=== PATIENT | male | born 1945 | race Caucasian/White ===

== ENCOUNTER 2017-07-05 22:48 | Inpatient (IN) | payer MEDICARE, OTHER, SELFPAY ==
[2016-05-30 15:09] VITALS: BMI 37.2
[2017-07-05 22:51] VITALS: BP 176/97; PULSE 82; RESP 22; TEMP 36.5; O2SAT 97; BMI 39.1
--- NOTE | 2017-07-05 22:53 | NURSING ---
RN CALLED FOR EKG, PULLED OLD EKG'S FOR
--- NOTE | 2017-07-05 22:55 | RAD_ITS ---
STUDY: X-RAY CHEST REASON FOR EXAM: Male, 71 years old. Chest pain, palpitations. TECHNIQUE: Single AP portable view of the chest. COMPARISON: 11/15/2016. FINDINGS: Left-sided pacemaker. The lungs are clear and expanded. There is no demonstrated pleural abnormality. There is mild cardiac enlargement. Normal mediastinum and eleuterio. Normal visualized pulmonary arteries. Normal visualized aortic arch and descending thoracic aorta. Normal visualized thoracic spine. Normal visualized ribs, clavicles, and shoulders. There is no demonstrated abnormality of the visualized soft tissue structures of the upper abdomen. RAD/Chest 1 View (Portable) IMPRESSION: No acute infiltrate. Mild cardiomegaly. Electronically Signed: Chencho Lei DO at 23:40 EDT , Service support ,
--- NOTE | 2017-07-05 22:55 | EKG12_ITS ---
Test Reason : CP Blood Pressure : / mmHG Vent. Rate : 073 BPM Atrial Rate : 073 BPM P-R Int : 188 ms QRS Dur : 164 ms QT Int : 430 ms P-R-T Axes : 066 -09 -04 degrees QTc Int : 473 ms Normal sinus rhythm Right bundle branch block Inferior infarct , age undetermined Abnormal ECG Confirmed by CA SIMMONS, ROBERT ([id number]), makeup editor IRIS TUTTLE ([id number]) on 07/09/2017 2:02:38 PM Referred By: DR CASIANO Confirmed By:ROBERT PENALOZA MD
[2017-07-05 23:09] LABS: Absolute Lymphocyte Count 1.58 X10^3/ul (0.83-4.51); Absolute Neutrophil Count 3.2 X10^3/uL (2.0-7.7); Basophil# 0.04 X10^3/uL; Basophil% 0.7 % (0-1); Eosinophil# 0.22 X10^3/uL; Eosinophils% 4.1 % (0-5); Hematocrit 36.4 % (40-54); Hemoglobin 12.2 g/dl (13.0-16.5); Lymphocyte # 1.58 X10^3/ul (4.0); Lymphocyte % 29.3 % (19-41); Mean Corp Hgb Conc 33.5 g/gl (32-36); Mean Corpuscular Hgb 29.4 pg (27.0-32.0); Mean Corpuscular Volume 87.7 fL (80-94); Mean Platelet Vol. 9.1 fl (6.2-12.0); Monocyte# 0.38 X10^3/uL; Monocyte% 7.1 % (0-10); Neutrophil # 3.15 X10^3/uL (2.7-7.7); Neutrophil % 58.4 % (47-70); Platelet Count 172 K/mm3 (150-450); RBC Distribution Width CV 14.3 % (11.6-14.6); RBC Distribution Width SD 45.8 fl (35.1-43.9); Red Blood Count 4.15 M/mm3 (4.6-6.2); White Blood Count 5.4 K/mm3 (4.4-11.0)
--- NOTE | 2017-07-05 23:13 | ED.VISSUMM ---
- ER Visit Summary Date of Service: 07/05/17 Chief Complaint: Chest pain, palpitations and right low back pain History of Present Illness: The patient is a 71 M history of CAD with prior CO and one cardiac stent. He states he has had chest pain since Thursday evening. Also shortness of breath. He is also complaining of right lower para lumbar back pain. Denies any fall or trauma. No abdominal pain. No history of aneurysm. Physical Examination: Vital signs are stable afebrile. Pulse ox 97% room air no hypoxia. H EENT exam is unremarkable. Neck nontender no JVD. Lungs clear to auscultation bilaterally. Chest wall nontender. Heart regular rate and rhythm no murmur. Abdomen is soft and nontender. Normal bowel sounds no peritoneal signs. He is moving all 4 extremities. They are neurovascularly intact. Calves are nontender there is trace edema both lower extremities. Neurologically is awake alert without focal motor deficits. Test Results: Sinus rhythm rate is 73 with no acute signs of CO or ischemia. Right bundle branch block and unchanged from prior EKG from October 2016. ABC she has a chronic anemia with a white count of 5 H&H 12 and 36 which is baseline. Electrolytes are unremarkable other creatinine 1.4. He is on Coumadin his INR is 2.0. His troponin is elevated 0.07 his last troponin was normal but he has had multiple slightly elevated troponins in the past. Chest x-ray shows borderline cardiomegaly and a left-sided pacemaker otherwise no acute process. Emergency Department Course and Treatment: Patient is having chest pain and will undergo a chest pain evaluation also received aspirin and sublingual nitroglycerin. The back pain appears to be musculoskeletal paralumbar soft tissue pain. Treatment Plan: Repeat exam at 0001 patient still has chest discomfort and low back pain. A second EKG will be obtained. I have the hospitalist on page for admission further evaluation. Denies troponin is abnormal I do feel is appropriate to admit him for for the troponin levels and repeat evaluations. Disposition: Admission Impression: Acute chest pain certain etiology History of CAD, prior CO, cardiac stent ?1. Paralumbar musculoskeletal back pain This note was generated with [employer] dictation software. It may contain incorrect words, spelling, and punctuation that were not noted in review of the chart prior to signing ED Disposition - Plan for ED Patient: Chief Complaint: Chest Pain Referrals: Gilbert Keyes III, MD [Primary Care Provider] -
[2017-07-05 23:15] LABS: POSITIVE COUNT NO; POSITIVE DIFFERENTIAL NO; POSITIVE MORPHOLOGY NO
--- NOTE | 2017-07-05 23:17 | ED.DCSUM_ITS ---
- ER Visit Summary Date of Service: 07/05/17 Chief Complaint: Chest pain, palpitations and right low back pain History of Present Illness: The patient is a 71 M history of CAD with prior [place] and one cardiac stent. He states he has had chest pain since Thursday evening. Also shortness of breath. He is also complaining of right lower para lumbar back pain. Denies any fall or trauma. No abdominal pain. No history of aneurysm. Physical Examination: Vital signs are stable afebrile. Pulse ox 97% room air no hypoxia. H EENT exam is unremarkable. Neck nontender no JVD. Lungs clear to auscultation bilaterally. Chest wall nontender. Heart regular rate and rhythm no murmur. Abdomen is soft and nontender. Normal bowel sounds no peritoneal signs. He is moving all 4 extremities. They are neurovascularly intact. Calves are nontender there is trace edema both lower extremities. Neurologically is awake alert without focal motor deficits. Test Results: Sinus rhythm rate is 73 with no acute signs of [place] or ischemia. Right bundle branch block and unchanged from prior EKG from October 2016. ABC she has a chronic anemia with a white count of 5 H&H 12 and 36 which is baseline. Electrolytes are unremarkable other creatinine 1.4. He is on Coumadin his INR is 2.0. His troponin is elevated 0.07 his last troponin was normal but he has had multiple slightly elevated troponins in the past. Chest x -ray shows borderline cardiomegaly and a left-sided pacemaker otherwise no acute process. Emergency Department Course and Treatment: Patient is having chest pain and will undergo a chest pain evaluation also received aspirin and sublingual nitroglycerin. The back pain appears to be musculoskeletal paralumbar soft tissue pain. Treatment Plan: Repeat exam at 0001 patient still has chest discomfort and low back pain. A second EKG will be obtained. I have the hospitalist on page for admission further evaluation. Denies troponin is abnormal I do feel is appropriate to admit him for for the troponin levels and repeat evaluations. Disposition: Admission Impression: Acute chest pain certain etiology History of CAD, prior [place], cardiac stent ?1. Paralumbar musculoskeletal back pain This note was generated with [employer] dictation software. It may contain incorrect words, spelling, and punctuation that were not noted in review of the chart prior to signing ED Disposition - Plan for ED Patient: Chief Complaint: Chest Pain Referrals: Gilbert Keyes III, MD [Primary Care Provider] -
[2017-07-05 23:25] LABS: Anion Gap 7 (5-15); BUN 28 mg/dL (7-18); BUN/Creat Ratio 19.6 RATIO (10-20); Calcium,Total 8.8 mg/dL (8.5-10.1); Chloride 106 mmol/L (98-107); Creatinine, Serum 1.43 mg/dL (0.70-1.30); EST Glomerular Filtration Rate 52 mL/min (>60); Est Glom Filt Rate - Afr Amer 63 mL/min (>60); Estimated Creatinine Clearance 45.84 ml/min; Glucose 74 mg/dL (74-106); Potassium 3.6 mmol/L (3.5-5.1); Sodium Level 143 mmol/L (136-145)
[2017-07-05] MEDS: Aspirin 81 MG TAB.CHEW 324 MG PO (23:26)
[2017-07-05 23:27] VITALS: BP 123/75; PULSE 70
[2017-07-05 23:42] LABS: Prothrombin Time (Protime)PT. 22.4 SECONDS (11.7-14.9)
[2017-07-06] VITALS (16 sets, daily range): BP systolic 93–142; BP diastolic 62–87; PULSE 63–77; RESP 14–21; TEMP 36.6–36.9; O2SAT 95–98; BMI 38.7
--- NOTE | 2017-07-06 00:01 | EKG12_ITS ---
Test Reason : REPEAT Blood Pressure : / mmHG Vent. Rate : 065 BPM Atrial Rate : 065 BPM P-R Int : 186 ms QRS Dur : 146 ms QT Int : 436 ms P-R-T Axes : 060 -08 013 degrees QTc Int : 453 ms Normal sinus rhythm Right bundle branch block Inferior infarct , age undetermined Abnormal ECG Reconfirmed by CA SIMMONS, ROBERT ([id number]), photography editor IRIS TUTTLE ([id number]) on 07/09/2017 1:48:17 PM Referred By: DR CASIANO Confirmed By:ROBERT PENALOZA MD
--- NOTE | 2017-07-06 00:08 | PCM.HP.STD ---
Problem List (1) Atherosclerotic heart disease of [place] coronary artery with other forms of angina pectoris Status: Chronic Comment: 1990, 1992, 06/1997; Cutting balloon, PTCA/stent of ostium of proximal lateral CX 11/22/02; [facility], PTCA/stent to proximal OM 01/2008;[facility] 06/20/2011; FFR and IVUS 06/30/2011 @ [facility]; [facility] 12/15/14 w/tsfer to [facility] for PTCA and LEANNA to in-tent restenosis of proximal OM; [facility] 02/07/2015; [facility] 02/15/2016: [facility] w/FFR of LAD, DX, CX 05/30/2016 (2) History of DVT (deep vein thrombosis) Status: Chronic (3) History of non-ST elevation myocardial infarction (NSTEMI) Status: Chronic (4) Hyperlipidemia Status: Chronic Qualifiers: Hyperlipidemia type: unspecified Qualified Code(s): E78.5 - Hyperlipidemia, unspecified (5) Hypertension Status: Chronic Qualifiers: Hypertension type: essential hypertension Qualified Code(s): I10 - Essential (primary) hypertension (6) ICD (implantable cardioverter-defibrillator) in place Status: Chronic Comment: 11/23/[address] Elmer Duong at [facility] (7) Ischemic cardiomyopathy Status: Chronic Comment: EF 40% per echo 12/04/2014 (8) Nonrheumatic tricuspid (valve) insufficiency Status: Chronic Comment: Per echo 12/04/2014: Moderate(2+), RVSP 36mmhg (9) Obesity (BMI 30-39.9) Status: Chronic Qualifiers: Obesity classification: adult class 2 (BMI 35 - 39.9) Serious obesity comorbidity presence: unspecified whether serious comorbidity present Body mass index: BMI 39.0-39.9 (10) Supraventricular arrhythmia Status: Chronic (11) Type II diabetes mellitus Status: Chronic Qualifiers: Diabetes mellitus watermelon inspector insulin use: with detention use Diabetes mellitus complication status: with unspecified complications Qualified Code(s): E11.8 - Type 2 diabetes mellitus with unspecified complications; Z79.4 - director long term care (current) use of insulin History of Present Illness Date of Admission: 07/06/17 Chief Complaint: Chest pain, pressure. The patient is a 71 y/o M w/ PMHx: CAD s/p CAD s/p PCI, Ischemic Cardiomyopathy s/p ICD placement, HTN, HLD, Obesity, Hx SVT, Hx DVT, Diabetes mellitus type II who presents to the [facility] ED on 07/06/17 with onset chest pain, heaviness-pressure in the middle of his chest without radiation with associated dyspnea, worse with exertion over the last day and recent concurrent lower lumbar musculoskeletal back pain x 2-3 days with no recent injury or change in activity. He also notes recent urinary frequency but denies dysuria. In the ED work-up included T 97.7, HR 70-80s, BP 176/97-->123/75, RR 22, 97% on RA, CBC w/ WBC 5.4, Hgb 12.2, Plts 172 without shift, INR 2.0, BMP w/ BUN/Cr 28/1.43 (baseline Cr 1.2), trop 0.07, EKG w/ SR without acute evidence of ischemia, CXR w/ no acute findings, cardiomegaly. Requested UA, UCx in the ED which is pending. Past Medical History Past Medical History (Chronic Problems): Chronic Problems (Last Updated 07/03/17 @ 11:35 by Melissa Marks) Hyperlipidemia (Chronic) History of non-ST elevation myocardial infarction (NSTEMI) (Chronic) Atherosclerotic heart disease of [place] coronary artery with other forms of angina pectoris (Chronic) 1990, 1992, 06/1997; Cutting balloon, PTCA/stent of ostium of proximal lateral CX 11/22/02; [facility], PTCA/stent to proximal OM 01/2008;[facility] 06/20/2011; FFR and IVUS 06/30/2011 @ [facility]; [facility] 12/15/14 w/tsfer to [facility] for PTCA and LEANNA to in-tent restenosis of proximal OM; [facility] 02/07/2015; [facility] 02/15/2016: [facility] w/FFR of LAD, DX, CX 05/30/2016 Stented coronary artery (Chronic) 1990, 1992, 06/1997; Cutting balloon, PTCA/stent of ostium of proximal lateral CX 11/22/02; [facility], PTCA/stent to proximal OM 01/2008;[facility] 06/20/2011; FFR and IVUS 06/30/2011 @ [facility]; [facility] 12/15/14 w/tsfer to [facility] for PTCA and LEANNA to in-tent restenosis of proximal OM; [facility] 02/07/2015; [facility] 02/15/2016: [facility] w/FFR of LAD, DX, CX 05/30/2016 History of left heart catheterization (Chronic) 1990, 1992, 06/1997; Cutting balloon, PTCA/stent of ostium of proximal lateral CX 11/22/02; [facility], PTCA/stent to proximal OM 01/2008;[facility] 06/20/2011; FFR and IVUS 06/30/2011 @ [facility]; [facility] 12/15/14 w/tsfer to [facility] for PTCA and LEANNA to in-tent restenosis of proximal OM; [facility] 02/07/2015; [facility] 02/15/2016: [facility] w/FFR of LAD, DX, CX 05/30/2016 Nonrheumatic tricuspid (valve) insufficiency (Chronic) Per echo 12/04/2014: Moderate(2+), RVSP 36mmhg ICD (implantable cardioverter-defibrillator) in place (Chronic) 11/23/[address] Elmer Duong at [facility] Ischemic cardiomyopathy (Chronic) EF 40% per echo 12/04/2014 Type II diabetes mellitus (Chronic) History of DVT (deep vein thrombosis) (Chronic) Supraventricular arrhythmia (Chronic) Ventricular arrhythmia (Chronic) Obesity (BMI 30-39.9) (Chronic) Hypertension (Chronic) Allergies ceftriaxone sodium [From Rocephin] Allergy (Verified 07/05/17 22:52) Rash milk Adverse Reaction (Verified 07/05/17 22:52) Diarrhea morphine Adverse Reaction (Verified 07/05/17 22:52) hallucinations Home Medications: Ambulatory Orders Medication Instructions Recorded Aspirin [Aspirin, Baby] 81 mg PO DAILY 12/04/14 Clopidogrel Bisulfate [Plavix] 75 mg PO DAILY 12/04/14 Insulin NPH Human [Humulin N Pen] 32 units SC DAILY 12/04/14 Lisinopril [Zestril] 20 mg PO DAILY 12/04/14 Metformin HCl [Glucophage] 500 mg PO BIDCM 12/04/14 Rosuvastatin Calcium [Crestor] 40 mg PO QHS 12/04/14 Furosemide [Lasix] 40 mg PO BID 12/14/14 Pantoprazole Sodium [Protonix] 40 mg PO DAILY 02/02/15 Insulin Lispro [Humalog] 20 unit SQ TID 02/06/15 Fenofibrate [Tricor] 145 mg PO DAILY 02/14/16 Insulin NPH Human Isophane 34 units SQ QHS 05/02/16 [Humulin N Vial] Nitroglycerin [Nitrostat] 0.4 mg SUBLINGUAL Q5M PRN #0 tab 05/31/16 Carvedilol [Coreg] 6.25 mg PO BID 07/01/16 Isosorbide Mononitrate [Imdur] 60 mg PO DAILY #60 tab 11/16/16 ranolazine ER 1,000 mg 1,000 mg PO BID #180 tab 03/31/17 tablet,extended release,12 hr amlodipine 5 mg tablet 5 mg PO .q day tab 07/03/17 gabapentin 600 mg tablet 600 mg PO TID 07/03/17 warfarin 5 mg tablet 9 mg PO .COMPLEX 07/03/17 warfarin 7.5 mg tablet 8 mg PO .COMPLEX 07/03/17 Insulin Lispro [Humalog] 21 unit SQ TIDCM 07/06/17 Surgical History: - - Several cardiac catheterizations, AICD placement, coronary artery stent placement, cardiac ablation. Psychiatric History: No pertinent psych hx Lives: Spouse/ Significant Other Smoking Status: Former smoker Tobacco Use: Non-smoker Alcohol: None Drugs: None - *Family History Maternal History Items: Stroke - CVA, age 80. Paternal History Items: Cancer - Prostate CA, 78 y/o. Sibling History Items: Diabetes Review of Systems Constitutional: Reports: Malaise, Weakness, Fatigue. Denies: Chills, Fever, Weight Change HEENT: Denies: Head Aches, Sinus Congestion, Sinus Drainage Cardiovascular: Reports: Chest Pain, Chest Pressure, Heaviness, Palpitations. Denies: Light Headedness, Orthopnea, Syncope Respiratory: Reports: Shortness of Breath, Shortness of breath at rest, Shortness of breath upon exertion. Denies: Cough, Sputum production Gastrointestinal: Denies: Abdominal Pain, Nausea, Vomiting Genitourinary: Denies: Dysuria Musculoskeletal: Reports: Back Pain. Denies: Joint Pain, Joint Tenderness Skin: Denies: Rash, Wounds Neurological: Denies: Numbness, Tingling, Focal weakness Psychiatric: Denies: Anxiety, Depression, Homicidal Ideations, Suicidal Ideations Hematologic/ Lymphatic: Reports: Anemia, Easy Bruising, Easy Bleeding VTE Information - Inpt Only VTE Present on Admission: No VTE Mechan Device Prophylaxis: SCD's VTE Pharm Prophylaxis ordered?: No Reason prophylaxis not ordered:: Treatment Not Indicated Subjective: Seated upright in the ED bed, fatigued appearance, notes still chest discomfort ongoing and lumbar paraspinous back pain. Objective: Physical Examination: General: awake, alert, oriented x 3 and cooperative, seated upright in the ED bed in no apparent distress. Skin: normal color, turgor, no icterus, cyanosis except BL LE chronic venous stasis skin changes. HEENT: AT/NC, EOMI, PERRLA, mildly dry MM, no carotid bruits or JVD noted. Lungs: Diminished BS BL, > bases, moderate effort, no rales, ronchi, upper airway forced sounds. Heart: Regular rate and rhythm; no gallop, rub audible. Abdomen: soft, obese, NTTP, ND, normal BS, no HSM; however, habitus makes examination difficult. Extremities: no cyanosis, clubbing, see skin, BL LE paraspinous lumbar palpation TTP, no spinal palpation TTP. Neurological: patient awake, alert, oriented x 3; cognitive function intact; pupils equally reactive to light and accomodation; cranial nerves II-XII grossly normal, moving all 4 extremities, no focal deficits, strength severely globally decreased secondary to acute presentation. Psychiatric: affect appears fatigued, no acute evidence of depressive or anxiety feelings. - Physical Exam Vital Signs Temp Pulse Resp BP Pulse Ox 97.7 F L 70 22 H 123/75 H 97 07/05/17 22:51 07/05/17 23:27 07/05/17 22:51 07/05/17 23:27 07/05/17 22:51 Oxygen Flow Rate (L/min) 2 Oxygen Delivery Method Nasal Cannula Weight: 257 lb 7.999 oz Body Mass Index (BMI) 39.1 Finger Stick Blood Glucose 180 Laboratory Tests Past 24 Hrs 07/05/17 07/05/17 07/05/17 23:00 23:00 23:00 WBC 5.4 RBC 4.15 L Hgb 12.2 L Hct 36.4 L MCV 87.7 MCH 29.4 MCHC 33.5 RDW 14.3 RDW Differential 45.8 H Plt Count 172 MPV 9.1 Immature Gran % (Auto) 0.400 Neut % (Auto) 58.4 Lymph % (Auto) 29.3 [place] % (Auto) 7.1 Eos % (Auto) 4.1 Baso % (Auto) 0.7 Absolute Neuts (auto) 3.2 Absolute Lymphs (auto) 1.58 Total Counted Not Reportable PT 22.4 H INR 2.0 Sodium 143 Potassium 3.6 Chloride 106 Carbon Dioxide 30.0 Anion Gap 7 BUN 28 H Creatinine 1.43 H Estim Creat Clear Calc 45.84 Est GFR (MDRD) Af Amer 63 Est GFR (MDRD) Non-Af 52 L BUN/Creatinine Ratio 19.6 Glucose 74 Calcium 8.8 Troponin I 0.07 H Assessment/Plan The patient is a 71 y/o M w/ PMHx: CAD s/p CAD s/p PCI, Ischemic Cardiomyopathy s/p ICD placement, HTN, HLD, Obesity, Hx SVT, Hx DVT, Diabetes mellitus type II who presents to the [facility] ED on 07/06/17 with onset chest pain, heaviness in the middle of his chest without radiation with associated dyspnea, concurrent lower lumbar musculoskeletal back pain. (1) Chest Pain, Acute on Chronic w/ several prior MO, CAD Hx: EKG in ED no acute evidence of ischemia, CXR w/ no acute findings, cardiomegaly, initial trop 0.07. Will admit to see you, place on a monitored bed to assure no acute myocardial infarction with serial cardiac enzymes and EKGs. s/p cardiac catheterization noted 05/2016, per records ? need for intervention but noted also 11/16/16 admission w/ chest pain and cardiology evaluation at that time without stress testing performed but atypical. Given history and catheterization ~ 1 year prior, chronic chest pain complaints, will obtain Cardiology consultation, given ongoing coumadin usage will allow diet as if intervention was desired would not be immediately performed, likely allow INR to trend down and transition to heparin drip given DVT History concurrently. ASA, Nitrobid continued, morphine. ECHO in AM. FLP in AM. Mag pending. Gently hydrate given BUN/Cr mildly increased in case of repeat catheterization needs x 1 L. (2) Acute Intractable Lumbar Paraspinous Muscular Back Pain: Will maintain on fall precautions, frequent positioning, po/IV pain regimen, low dose flexeril, anti-emetics, bowel regimen. Will consult PT and OT for evaluation. UA, UCx as noted pending. (3) CAD, s/p prior [place]: History of PCI notable intervention, noted 1990, 1992, 06/1997; Cutting balloon, PTCA/stent of ostium of proximal lateral CX 11/22/02; [facility], PTCA/stent to proximal OM 01/2008;[facility] 06/20/2011; FFR and IVUS 06/30/2011 @ [facility]; [facility] 12/15/14 w/tsfer to [facility] for PTCA and LEANNA to in-tent restenosis of proximal OM; [facility] 02/07/2015; [facility] 02/15/2016: [facility] w/FFR of LAD, DX, CX 05/30/2016. Following w/ Dr. Perry. Will maintain on home regimen asa, plavix, statin, BB. (4) Ischemic Cardiomyopathy: s/p ICD placement, 2002 at [facility], 04/[address] Perry visit w/ noted unremarkable interrogation with no VF/VT wince 01/30/17 with planned follow-up 3 months. (5) Cardiac Arrhythmia: Noted Cardiology visit history PAF and SVT listed, s/p ICD placement, as noted recent visit, EF 40%, maintained on asa, plavix, coumadin, coreg regimen. Previously noted he was on sotalol and s/p ablation history. Notes recent palpitation sensation, maintain on telemetry, repeat EKG in AM. (6) Hypertension: Continue home regimen including Norvasc, Coreg, Lasix, lisinopril, Isosorbide, PRN hydralazine. (7) Hyperlipidemia: Continue home statin regimen. AM FLP. (8) Diabetes mellitus type II: Hold oral home regimen, continue home insulin regimen, ADA diet, accu checks w/ ISS. (9) History of DVT: Maintained on Coumadin, admission INR 2.0, trending. (10) Obesity: Weight loss and lifestyle changes encouraged, nutrition consulted for education and teaching. (11) Chronic Normocytic Anemia: Admission Hgb 12.2, baseline Hgb 11-12 range, stable, will defer iron study/vitamin evaluation to outpatient given chronic, stable. (12) Valvular Heart Disease: Noted moderate 2+ TVI per ECHO 2014. (13) BL LE Chronic Venous Stasis: Noted chronic LE skin changes, will gently cleanse and remove flaking skin, apply eucerine cream. (14) DVT Prophylaxis: SCDs, coumadin w/ INR trending. Code Visit OBSV E&M: 21955 Initial observation care L3
[2017-07-06] MEDS: HYDROmorphone 0.5 MG/0.5 ML SYRINGE IV (00:15)
--- NOTE | 2017-07-06 00:25 | HP.PCM_ITS ---
Problem List (1) Atherosclerotic heart disease of [place] coronary artery with other forms of angina pectoris Status: Chronic Comment: 1990, 1992, 06/1997; Cutting balloon, PTCA/stent of ostium of proximal lateral CX 11/22/02; [facility], PTCA/stent to proximal OM 01/2008; [facility] 06/20/2011; FFR and IVUS 06/30/2011 @ [facility]; [facility] 12/15/14 w/tsfer to [facility] for PTCA and LEANNA to in-tent restenosis of proximal OM; [facility] 02/07/2015; [facility] 2015: [facility] w/FFR of LAD, DX, CX 05/30/2016 (2) History of DVT (deep vein thrombosis) Status: Chronic (3) History of non-ST elevation myocardial infarction (NSTEMI) Status: Chronic (4) Hyperlipidemia Status: Chronic Qualifiers: Hyperlipidemia type: unspecified Qualified Code(s): E78.5 - Hyperlipidemia , unspecified (5) Hypertension Status: Chronic Qualifiers: Hypertension type: essential hypertension Qualified Code(s): I10 - Essential (primary) hypertension (6) ICD (implantable cardioverter-defibrillator) in place Status: Chronic Comment: 11/23/[address] Elmer Duong at [facility] (7) Ischemic cardiomyopathy Status: Chronic Comment: EF 40% per echo 12/04/2014 (8) Nonrheumatic tricuspid (valve) insufficiency Status: Chronic Comment: Per echo 12/04/2014: Moderate(2+), RVSP 36mmhg (9) Obesity (BMI 30-39.9) Status: Chronic Qualifiers: Obesity classification: adult class 2 (BMI 35 - 39.9) Serious obesity comorbidity presence: unspecified whether serious comorbidity present Body mass index: BMI 39.0-39.9 (10) Supraventricular arrhythmia Status: Chronic (11) Type II diabetes mellitus Status: Chronic Qualifiers: Diabetes mellitus half-way insulin use: with tank terminal gauger use Diabetes mellitus complication status: with unspecified complications Qualified Code(s) : E11.8 - Type 2 diabetes mellitus with unspecified complications; Z79.4 - watermaster (current) use of insulin History of Present Illness Date of Admission: 07/06/17 Chief Complaint: Chest pain, pressure. The patient is a 71 y/o M w/ PMHx: CAD s/p CAD s/p PCI, Ischemic Cardiomyopathy s/p ICD placement, HTN, HLD, Obesity, Hx SVT, Hx DVT, Diabetes mellitus type II who presents to the [facility] ED on 07/06/17 with onset chest pain, heaviness-pressure in the middle of his chest without radiation with associated dyspnea, worse with exertion over the last day and recent concurrent lower lumbar musculoskeletal back pain x 2-3 days with no recent injury or change in activity. He also notes recent urinary frequency but denies dysuria. In the ED work-up included T 97.7, HR 70-80s, BP 176/97-->123/75, RR 22, 97% on RA, CBC w / WBC 5.4, Hgb 12.2, Plts 172 without shift, INR 2.0, BMP w/ BUN/Cr 28/1.43 ( baseline Cr 1.2), trop 0.07, EKG w/ SR without acute evidence of ischemia, CXR w / no acute findings, cardiomegaly. Requested UA, UCx in the ED which is pending. Past Medical History Past Medical History (Chronic Problems): Chronic Problems (Last Updated 07/03/17 @ 11:35 by Melissa Marks) Hyperlipidemia (Chronic) History of non-ST elevation myocardial infarction (NSTEMI) (Chronic) Atherosclerotic heart disease of [place] coronary artery with other forms of angina pectoris (Chronic) 1990, 1992, 06/1997; Cutting balloon, PTCA/stent of ostium of proximal lateral CX 11/22/02; [facility], PTCA/stent to proximal OM 01/2008;[facility] 06/20/2011; FFR and IVUS @ [facility]; [facility] 12/15/14 w/tsfer to [facility] for PTCA and LEANNA to in-tent restenosis of proximal OM; [facility] 02/07/2015; [facility] 02/15/2016: [facility] w/FFR of LAD, DX , CX 05/30/2016 Stented coronary artery (Chronic) 1990, 1992, 06/1997; Cutting balloon, PTCA/stent of ostium of proximal lateral CX 11/22/02; [facility], PTCA/stent to proximal OM 01/2008;[facility] 06/20/2011; FFR and IVUS @ [facility]; [facility] 12/15/14 w/tsfer to [facility] for PTCA and LEANNA to in-tent restenosis of proximal OM; [facility] 02/07/2015; [facility] 02/15/2016: [facility] w/FFR of LAD, DX , CX 05/30/2016 History of left heart catheterization (Chronic) 1990, 1992, 06/1997; Cutting balloon, PTCA/stent of ostium of proximal lateral CX 11/22/02; [facility], PTCA/stent to proximal OM 01/2008;[facility] 06/20/2011; FFR and IVUS @ [facility]; [facility] 12/15/14 w/tsfer to [facility] for PTCA and LEANNA to in-tent restenosis of proximal OM; [facility] 02/07/2015; [facility] 02/15/2016: [facility] w/FFR of LAD, DX , CX 05/30/2016 Nonrheumatic tricuspid (valve) insufficiency (Chronic) Per echo 12/04/2014: Moderate(2+), RVSP 36mmhg ICD (implantable cardioverter-defibrillator) in place (Chronic) 11/23/[address] Elmer Duong at [facility] Ischemic cardiomyopathy (Chronic) EF 40% per echo 12/04/2014 Type II diabetes mellitus (Chronic) History of DVT (deep vein thrombosis) (Chronic) Supraventricular arrhythmia (Chronic) Ventricular arrhythmia (Chronic) Obesity (BMI 30-39.9) (Chronic) Hypertension (Chronic) Allergies ceftriaxone sodium [From Rocephin] Allergy (Verified 07/05/17 22:52) Rash milk Adverse Reaction (Verified 07/05/17 22:52) Diarrhea morphine Adverse Reaction (Verified 07/05/17 22:52) hallucinations Home Medications: Ambulatory Orders Medication Instructions Recorded Aspirin [Aspirin, Baby] 81 mg PO DAILY 12/04/14 Clopidogrel Bisulfate [Plavix] 75 mg PO DAILY 12/04/14 Insulin NPH Human [Humulin N Pen] 32 units SC DAILY 12/04/14 Lisinopril [Zestril] 20 mg PO DAILY 12/04/14 Metformin HCl [Glucophage] 500 mg PO BIDCM 12/04/14 Rosuvastatin Calcium [Crestor] 40 mg PO QHS 12/04/14 Furosemide [Lasix] 40 mg PO BID 12/14/14 Pantoprazole Sodium [Protonix] 40 mg PO DAILY 02/02/15 Insulin Lispro [Humalog] 20 unit SQ TID 02/06/15 Fenofibrate [Tricor] 145 mg PO DAILY 02/14/16 Insulin NPH Human Isophane 34 units SQ QHS 05/02/16 [Humulin N Vial] Nitroglycerin [Nitrostat] 0.4 mg SUBLINGUAL Q5M PRN #0 tab 05/31/16 Carvedilol [Coreg] 6.25 mg PO BID 07/01/16 Isosorbide Mononitrate [Imdur] 60 mg PO DAILY #60 tab 11/16/16 ranolazine ER 1,000 mg 1,000 mg PO BID #180 tab 03/31/17 tablet,extended release,12 hr amlodipine 5 mg tablet 5 mg PO .q day tab 07/03/17 gabapentin 600 mg tablet 600 mg PO TID 07/03/17 warfarin 5 mg tablet 9 mg PO .COMPLEX 07/03/17 warfarin 7.5 mg tablet 8 mg PO .COMPLEX 07/03/17 Insulin Lispro [Humalog] 21 unit SQ TIDCM 07/06/17 Surgical History: - - Several cardiac catheterizations, AICD placement, coronary artery stent placement, cardiac ablation. Psychiatric History: No pertinent psych hx Lives: Spouse/ Significant Other Smoking Status: Former smoker Tobacco Use: Non-smoker Alcohol: None Drugs: None - *Family History Maternal History Items: Stroke - CVA, age 80. Paternal History Items: Cancer - Prostate CA, 78 y/o. Sibling History Items: Diabetes Review of Systems Constitutional: Reports: Malaise, Weakness, Fatigue. Denies: Chills, Fever, Weight Change HEENT: Denies: Head Aches, Sinus Congestion, Sinus Drainage Cardiovascular: Reports: Chest Pain, Chest Pressure, Heaviness, Palpitations. Denies: Light Headedness, Orthopnea, Syncope Respiratory: Reports: Shortness of Breath, Shortness of breath at rest, Shortness of breath upon exertion. Denies: Cough, Sputum production Gastrointestinal: Denies: Abdominal Pain, Nausea, Vomiting Genitourinary: Denies: Dysuria Musculoskeletal: Reports: Back Pain. Denies: Joint Pain, Joint Tenderness Skin: Denies: Rash, Wounds Neurological: Denies: Numbness, Tingling, Focal weakness Psychiatric: Denies: Anxiety, Depression, Homicidal Ideations, Suicidal Ideations Hematologic/ Lymphatic: Reports: Anemia, Easy Bruising, Easy Bleeding VTE Information - Inpt Only VTE Present on Admission: No VTE Mechan Device Prophylaxis: SCD's VTE Pharm Prophylaxis ordered?: No Reason prophylaxis not ordered:: Treatment Not Indicated Subjective: Seated upright in the ED bed, fatigued appearance, notes still chest discomfort ongoing and lumbar paraspinous back pain. Objective: Physical Examination: General: awake, alert, oriented x 3 and cooperative, seated upright in the ED bed in no apparent distress. Skin: normal color, turgor, no icterus, cyanosis except BL LE chronic venous stasis skin changes. HEENT: AT/NC, EOMI, PERRLA, mildly dry MM, no carotid bruits or JVD noted. Lungs: Diminished BS BL, > bases, moderate effort, no rales, ronchi, upper airway forced sounds. Heart: Regular rate and rhythm; no gallop, rub audible. Abdomen: soft, obese, NTTP, ND, normal BS, no HSM; however, habitus makes examination difficult. Extremities: no cyanosis, clubbing, see skin, BL LE paraspinous lumbar palpation TTP, no spinal palpation TTP. Neurological: patient awake, alert, oriented x 3; cognitive function intact; pupils equally reactive to light and accomodation; cranial nerves II-XII grossly normal, moving all 4 extremities, no focal deficits, strength severely globally decreased secondary to acute presentation. Psychiatric: affect appears fatigued, no acute evidence of depressive or anxiety feelings. - Physical Exam Vital Signs Temp Pulse Resp BP Pulse Ox 97.7 F L 70 22 H 123/75 H 97 07/05/17 22:51 07/05/17 23:27 07/05/17 22:51 07/05/17 23:27 07/05/17 22:51 Oxygen Flow Rate (L/min) 2 Oxygen Delivery Method Nasal Cannula Weight: 257 lb 7.999 oz Body Mass Index (BMI) 39.1 Finger Stick Blood Glucose 180 Laboratory Tests Past 24 Hrs 07/05/17 07/05/17 07/05/17 23:00 23:00 23:00 WBC 5.4 RBC 4.15 L Hgb 12.2 L Hct 36.4 L MCV 87.7 MCH 29.4 MCHC 33.5 RDW 14.3 RDW Differential 45.8 H Plt Count 172 MPV 9.1 Immature Gran % (Auto) 0.400 Neut % (Auto) 58.4 Lymph % (Auto) 29.3 Clare % (Auto) 7.1 Eos % (Auto) 4.1 Baso % (Auto) 0.7 Absolute Neuts (auto) 3.2 Absolute Lymphs (auto) 1.58 Total Counted Not Reportable PT 22.4 H INR 2.0 Sodium 143 Potassium 3.6 Chloride 106 Carbon Dioxide 30.0 Anion Gap 7 BUN 28 H Creatinine 1.43 H Estim Creat Clear Calc 45.84 Est GFR (MDRD) Af Amer 63 Est GFR (MDRD) Non-Af 52 L BUN/Creatinine Ratio 19.6 Glucose 74 Calcium 8.8 Troponin I 0.07 H Assessment/Plan The patient is a 71 y/o M w/ PMHx: CAD s/p CAD s/p PCI, Ischemic Cardiomyopathy s/p ICD placement, HTN, HLD, Obesity, Hx SVT, Hx DVT, Diabetes mellitus type II who presents to the [facility] ED on 07/06/17 with onset chest pain, heaviness in the middle of his chest without radiation with associated dyspnea, concurrent lower lumbar musculoskeletal back pain. (1) Chest Pain, Acute on Chronic w/ several prior TX, CAD Hx: EKG in ED no acute evidence of ischemia, CXR w/ no acute findings, cardiomegaly, initial trop 0.07. Will admit to see you, place on a monitored bed to assure no acute myocardial infarction with serial cardiac enzymes and EKGs. s/p cardiac catheterization noted 05/2016, per records ? need for intervention but noted also 11/16/16 admission w/ chest pain and cardiology evaluation at that time without stress testing performed but atypical. Given history and catheterization ~ 1 year prior, chronic chest pain complaints, will obtain Cardiology consultation, given ongoing coumadin usage will allow diet as if intervention was desired would not be immediately performed, likely allow INR to trend down and transition to heparin drip given DVT History concurrently. ASA , Nitrobid continued, morphine. ECHO in AM. FLP in AM. Mag pending. Gently hydrate given BUN/Cr mildly increased in case of repeat catheterization needs x 1 L. (2) Acute Intractable Lumbar Paraspinous Muscular Back Pain: Will maintain on fall precautions, frequent positioning, po/IV pain regimen, low dose flexeril, anti-emetics, bowel regimen. Will consult PT and OT for evaluation. UA, UCx as noted pending. (3) CAD, s/p prior TX: History of PCI notable intervention, noted 1990, 1992, 1997; Cutting balloon, PTCA/stent of ostium of proximal lateral CX 11/22/02; [facility] , PTCA/stent to proximal OM 01/2008;[facility] 06/20/2011; FFR and IVUS 06/30/2011 @ [facility] ; [facility] 12/15/14 w/tsfer to [facility] for PTCA and LEANNA to in-tent restenosis of proximal OM; [facility] 02/07/2015; [facility] 02/15/2016: [facility] w/FFR of LAD, DX, CX 2016. Following w/ Dr. Perry. Will maintain on home regimen asa, plavix, statin , BB. (4) Ischemic Cardiomyopathy: s/p ICD placement, 2002 at [facility], 04/[address] Perry visit w/ noted unremarkable interrogation with no VF/VT wince 01/30/17 with planned follow-up 3 months. (5) Cardiac Arrhythmia: Noted Cardiology visit history PAF and SVT listed, s/p ICD placement, as noted recent visit, EF 40%, maintained on asa, plavix, coumadin, coreg regimen. Previously noted he was on sotalol and s/p ablation history. Notes recent palpitation sensation, maintain on telemetry, repeat EKG in AM. (6) Hypertension: Continue home regimen including Norvasc, Coreg, Lasix, lisinopril, Isosorbide, PRN hydralazine. (7) Hyperlipidemia: Continue home statin regimen. AM FLP. (8) Diabetes mellitus type II: Hold oral home regimen, continue home insulin regimen, ADA diet, accu checks w/ ISS. (9) History of DVT: Maintained on Coumadin, admission INR 2.0, trending. (10) Obesity: Weight loss and lifestyle changes encouraged, nutrition consulted for education and teaching. (11) Chronic Normocytic Anemia: Admission Hgb 12.2, baseline Hgb 11-12 range, stable, will defer iron study/vitamin evaluation to outpatient given chronic, stable. (12) Valvular Heart Disease: Noted moderate 2+ TVI per ECHO 2014. (13) BL LE Chronic Venous Stasis: Noted chronic LE skin changes, will gently cleanse and remove flaking skin, apply eucerine cream. (14) DVT Prophylaxis: SCDs, coumadin w/ INR trending. Code Visit OBSV E&M: 10096 Initial observation care L3
--- NOTE | 2017-07-06 01:21 | ECHOD_ITS ---
Version 2 Reason For Study: ARRHYTHMIA Procedure This was a 2D Doppler, Color Flow transthoracic echocardiogram. Exam performed portable in patient room. Left Ventricle Normal LV size. The estimated ejection fraction is 45 %. Mild segmental systolic dysfunction (see wall motion). Transmitral diastolic flow velocities suggest mild (stage 1) diastolic dysfunction (reversed pattern). Mid-Inferior: Akinetic. Infero-Basal: Akinetic. The rest of the wall segments are normal. Posterior-Basal: Hypokinetic. Mid-Posterior: Hypokinetic. Right Ventricle Normal RV size. ICD or pacer leads identified within the right ventricle. Normal systolic function. Atria Normal left atrium. Normal right atrium. Mitral Valve Normal mitral valve. Mild (1+) eccentric mitral valve insufficiency. Tricuspid Valve Normal tricuspid valve. Mild (1+) tricuspid valve insufficiency. Pulmonary artery systolic pressure is 33 mmHg. Aortic Valve Trisinus/trileaflet aortic valve. Pulmonic Valve Normal pulmonic valve. Great Vessels Normal aortic root. The pulmonary artery is normal size. Normal inferior vena cava. Pericardium/Pleural No pericardial effusion. MMode/2D Measurements & Calculations LVIDd: 5.6 cm IVSd: 2.6 cm Ao root diam: 3.5 cm LVIDs: 4.5 cm LVPWd: 1.4 cm LA dimension: 3.7 cm RVDd: 3.9 cm FS: 20.3 % LAV(MOD-bp): 48.9 ml LA A4 area: 17.8 cm2 RA A4 area: 17.7 cm2 LAV(MOD-bp) Indexed: 21.5 ml/m2 LAV(MOD-sp2): 46.3 ml LAV(MOD-sp4): 53.9 ml Time Measurements MV dec time: 0.18 sec Doppler Measurements & Calculations MV E max kuldip: 65.9 cm/sec Lat Peak E' Kuldip: 8.0 cm/sec Med Peak E' Kuldip: 6.0 cm/sec MV A max kuldip: 80.4 cm/sec E/E' lat: 8.2 E/E' med: 10.9 MV E/A: 0.82 Ao V2 max: 128.9 cm/sec LV V1 max: 95.4 cm/sec PA V2 max: 80.4 cm/sec Ao max P.6 mmHg LV V1 max P.6 mmHg TR max kuldip: 262.7 cm/sec TR max P.6 mmHg Interpretation Summary Normal LV size. The estimated ejection fraction is 45 %. Mild (1+) tricuspid valve insufficiency. Mild (1+) eccentric mitral valve insufficiency. Mild segmental systolic dysfunction (see wall motion). Transmitral diastolic flow velocities suggest mild (stage 1) diastolic dysfunction (reversed pattern). Compared to prior study, there is no significant change. Ordering Physician: Belgica Kitchen Referring Physician: FEDERICO Keyes M.D. Performed By: Ngozi Dillard RDCS, RVT
[2017-07-06] MEDS: 0.9% Normal Saline 1,000 ML 125 ML IV (02:29)
[2017-07-06] MEDS: CYCLOBENZAPRINE HCL 5 MG TABLET PO ×2 (02:29→09:24)
[2017-07-06 02:42] LABS: Magnesium 1.9 mg/dL (1.6-2.6)
[2017-07-06 03:19] LABS: Hematocrit 34.6 % (40-54); Mean Corp Hgb Conc 34.7 g/gl (32-36); Mean Corpuscular Hgb 30.2 pg (27.0-32.0); Mean Corpuscular Volume 87.2 fL (80-94); Mean Platelet Vol. 9.6 fl (6.2-12.0); Platelet Count 173 K/mm3 (150-450); RBC Distribution Width CV 14.1 % (11.6-14.6); RBC Distribution Width SD 44.3 fl (35.1-43.9); Red Blood Count 3.97 M/mm3 (4.6-6.2); White Blood Count 5.4 K/mm3 (4.4-11.0)
[2017-07-06 03:21] LABS: Scan Indicated on CBC? Y/N NO
[2017-07-06 03:23] LABS: International Normalized Ratio 2.1; Prothrombin Time (Protime)PT. 23.2 SECONDS (11.7-14.9)
[2017-07-06 03:49] LABS: Anion Gap 10 (5-15); BUN 29 mg/dL (7-18); Calcium,Total 8.4 mg/dL (8.5-10.1); Chloride 105 mmol/L (98-107); Cholesterol 135 mg/dL (200); Creatinine, Serum 1.26 mg/dL (0.70-1.30); EST Glomerular Filtration Rate 60 mL/min (>60); Est Glom Filt Rate - Afr Amer 72 mL/min (>60); Estimated Creatinine Clearance 52.02 ml/min; Glucose 79 mg/dL (74-106); High Density Lipoprotein 32 mg/dL; Potassium 3.1 mmol/L (3.5-5.1); Sodium Level 142 mmol/L (136-145); Triglycerides 239 mg/dL; Very Low Density Lipoprotein 48 mg/dL (5-40)
[2017-07-06 04:23] LABS: Bacteria 0 SEEN /hpf (None Seen); Mucous, Urine 0 SEEN /hpf (<or=2+); Red Blood Cells-Urine 0 SEEN /hpf (0-5)
[2017-07-06 04:38] LABS: Color, Urine Yellow (Yellow); Glucose, Dipstick Normal (Normal); Ketone-Dipstick Negative (Negative); Leukocyte Esterase-Dipstick 25 /ul (Negative); Nitrite-Dipstick Negative (Negative); Occult Blood-Urine Negative /ul (Negative); Protein-Dipstick Negative (Negative); Specific Gravity, Urine 1.025 (1.002-1.030); Urine Bilirubin Dipstick Negative (Negative); Urine Clarity Clear (Clear); Urine Urobilinogen Normal (Normal)
[2017-07-06 04:45] LABS: Squamous Epithelial Cells - UA 0-5 SEEN /hpf (0-5); White Blood Cells 0-5 SEEN /hpf (0-5)
--- NOTE | 2017-07-06 05:55 | EKG12_ITS ---
Test Reason : Blood Pressure : / mmHG Vent. Rate : 066 BPM Atrial Rate : 066 BPM P-R Int : 188 ms QRS Dur : 154 ms QT Int : 464 ms P-R-T Axes : 066 -02 003 degrees QTc Int : 486 ms Sinus rhythm with occasional Premature ventricular complexes Right bundle branch block Inferior infarct , age undetermined T wave abnormality, consider lateral ischemia Abnormal ECG When compared with ECG of 06-JUL-2017 00:12, MANUAL COMPARISON REQUIRED, DATA IS UNCONFIRMED Confirmed by CA SIMMONS, ROBERT ([id number]), mapping editor IRIS TUTTLE ([id number]) on 07/09/2017 2:06:24 PM Referred By: Confirmed By:ROBERT PENALOZA MD
[2017-07-06] MEDS: Morphine 2 MG/ML Syringe IV (07:10)
[2017-07-06 07:21] LABS: Bedside Glucose 94 mg/dL (70-110)
[2017-07-06] MEDS: Gabapentin 600 MG Tablet PO ×3 (08:10→16:49)
[2017-07-06] MEDS: Aspirin 81 MG TAB.CHEW PO (08:11)
--- NOTE | 2017-07-06 08:11 | CON.PCM_ITS ---
Reason for Consult Date of Consultation: 07/06/17 Reason for Consultation: Chest pain History of Present Illness: The patient is a 71 year old M with previous cardiac history significant for coronary artery disease. He presented to the emergency room today complaining of chest discomfort as well as lower back discomfort and shortness of breath. You do remember that his past medical history significant for hypertension, hypercholesterolemia, ischemic cardiomyopathy. He also has a history of significant coronary artery disease. He underwent a cardiac catheterization in May 2016 which demonstrated a normal left main coronary artery left anterior descending artery which was a large vessel bifurcating to an LAD and diagonal vessel with a 40-50% stenosis in the midportion of the LAD. The diagonal vessel had an ostial 70% stenosis which had been unchanged since 2016. The circumflex artery was a moderate size vessel which had previously been stented and there was minor nonobstructive disease noted. The right coronary artery was large dominant and totally occluded with right to right collaterals. He underwent flow wire evaluation of the left anterior descending artery, diagonal , and circumflex artery and all were noted to be normal and medical therapy was recommended. He also has an implantable defibrillator. He described this chest discomfort as fairly constant and not worsened by exertion. He has undergone cardiac catheterization in January 2016 mitral 2016 both times with minimal troponin elevation. [] Past Medical History Allergies/Adverse Reactions: Allergies ceftriaxone sodium [From Rocephin] Allergy (Verified 07/05/17 22:52) Rash milk Adverse Reaction (Verified 07/05/17 22:52) Diarrhea morphine Adverse Reaction (Verified 07/05/17 22:52) hallucinations Home Medications: Ambulatory Orders Medication Instructions Recorded Aspirin [Aspirin, Baby] 81 mg PO DAILY 12/04/14 Clopidogrel Bisulfate [Plavix] 75 mg PO DAILY 12/04/14 Insulin NPH Human [Humulin N Pen] 32 units SC DAILY 12/04/14 Lisinopril [Zestril] 20 mg PO DAILY 12/04/14 Metformin HCl [Glucophage] 500 mg PO BIDCM 12/04/14 Rosuvastatin Calcium [Crestor] 40 mg PO QHS 12/04/14 Furosemide [Lasix] 40 mg PO BID 12/14/14 Pantoprazole Sodium [Protonix] 40 mg PO DAILY 02/02/15 Insulin Lispro [Humalog] 20 unit SQ TIDCM 02/06/15 Fenofibrate [Tricor] 145 mg PO DAILY 02/14/16 Insulin NPH Human Isophane 32 units SQ QHS 05/02/16 [Humulin N Vial] Nitroglycerin [Nitrostat] 0.4 mg SUBLINGUAL Q5M PRN #0 tab 05/31/16 Carvedilol [Coreg] 6.25 mg PO BID 07/01/16 amlodipine 5 mg tablet 5 mg PO DAILY tab 07/03/17 gabapentin 600 mg tablet 600 mg PO TID 07/03/17 warfarin 5 mg tablet 9 mg PO TUTH 07/03/17 warfarin 7.5 mg tablet 6 mg PO SUMOWEFRSA 07/03/17 Isosorbide Mononitrate [Isosorbide 60 mg PO DAILY 07/06/17 Mononitrate ER] Ranolazine [Ranexa] 1,000 mg PO BID 07/06/17 Past Medical History (Chronic Problems): Chronic Problems (Last Updated 07/03/17 @ 11:35 by Melissa Marks) Hyperlipidemia (Chronic) History of non-ST elevation myocardial infarction (NSTEMI) (Chronic) Atherosclerotic heart disease of [place] coronary artery with other forms of angina pectoris (Chronic) 1990, 1992, 06/1997; Cutting balloon, PTCA/stent of ostium of proximal lateral CX 11/22/02; [facility], PTCA/stent to proximal OM 01/2008;[facility] 06/20/2011; FFR and IVUS @ [facility]; [facility] 12/15/14 w/tsfer to [facility] [place] for PTCA and LEANNA to in-tent restenosis of proximal OM; [facility] 02/07/2015; [facility] 02/15/2016: [facility] w/FFR of LAD, DX , CX 05/30/2016 Stented coronary artery (Chronic) 1990, 1992, 06/1997; Cutting balloon, PTCA/stent of ostium of proximal lateral CX 11/22/02; [facility], PTCA/stent to proximal OM 01/2008;[facility] 06/20/2011; FFR and IVUS @ [facility]; [facility] 12/15/14 w/tsfer to [facility] [place] for PTCA and LEANNA to in-tent restenosis of proximal OM; [facility] 02/07/2015; [facility] 02/15/2016: [facility] w/FFR of LAD, DX , CX 05/30/2016 History of left heart catheterization (Chronic) 1990, 1992, 06/1997; Cutting balloon, PTCA/stent of ostium of proximal lateral CX 11/22/02; [facility], PTCA/stent to proximal OM 01/2008;[facility] 06/20/2011; FFR and IVUS @ [facility]; [facility] 12/15/14 w/tsfer to [facility] [place] for PTCA and LEANNA to in-tent restenosis of proximal OM; [facility] 02/07/2015; [facility] 02/15/2016: [facility] w/FFR of LAD, DX , CX 05/30/2016 Nonrheumatic tricuspid (valve) insufficiency (Chronic) Per echo 12/04/2014: Moderate(2+), RVSP 36mmhg ICD (implantable cardioverter-defibrillator) in place (Chronic) 11/23/[address] Elmer Duong at [facility] [place] Ischemic cardiomyopathy (Chronic) EF 40% per echo 12/04/2014 Type II diabetes mellitus (Chronic) History of DVT (deep vein thrombosis) (Chronic) Supraventricular arrhythmia (Chronic) Ventricular arrhythmia (Chronic) Obesity (BMI 30-39.9) (Chronic) Hypertension (Chronic) Surgical History: - - Several cardiac catheterizations, AICD placement, coronary artery stent placement, cardiac ablation. Psychiatric History: No pertinent psych hx - *Family History Maternal Family History: Family History (Last Updated 07/03/17 @ 11:39 by Melissa Marks) Father Prostate cancer Mother CVA (cerebral vascular accident) Sister Congestive heart failure Diabetes Hypertension Hyperlipidemia Atrial fibrillation CAD (coronary artery disease) Cardiac defibrillator in situ Sister Breast cancer Sister Breast cancer Brother CAD (coronary artery disease) Myocardial infarction Diabetes Brother Diabetes Brother COPD (chronic obstructive pulmonary disease) Sister Alive and well History Items: Stroke - CVA, age 80. Paternal Family History: Family History (Last Updated 07/03/17 @ 11:39 by Melissa Marks) Father Prostate cancer Mother CVA (cerebral vascular accident) Sister Congestive heart failure Diabetes Hypertension Hyperlipidemia Atrial fibrillation CAD (coronary artery disease) Cardiac defibrillator in situ Sister Breast cancer Sister Breast cancer Brother CAD (coronary artery disease) Myocardial infarction Diabetes Brother Diabetes Brother COPD (chronic obstructive pulmonary disease) Sister Alive and well History Items: Cancer - Prostate CA, 78 y/o. Sibling Family History: Family History (Last Updated 07/03/17 @ 11:39 by Melissa Marks) Father Prostate cancer Mother CVA (cerebral vascular accident) Sister Congestive heart failure Diabetes Hypertension Hyperlipidemia Atrial fibrillation CAD (coronary artery disease) Cardiac defibrillator in situ Sister Breast cancer Sister Breast cancer Brother CAD (coronary artery disease) Myocardial infarction Diabetes Brother Diabetes Brother COPD (chronic obstructive pulmonary disease) Sister Alive and well History Items: Diabetes Lives: Spouse/ Significant Other Smoking Status: Former smoker Tobacco Use: Non-smoker Alcohol: None Drugs: None Review of Systems - Review of Systems General: Denies: Fever, Night Sweats, Fatigue Cardiovascular: Reports: Chest Discomfort at Rest. Denies: Chest Discomfort, Shortness of Breath, Orthopnea, PND, Peripheral Edema, Palpitations, Lightheadedness, Dizziness, Near Syncope, Syncope Respiratory: Denies: Cough, Sputum Production, Hemoptysis Gastrointestinal: Denies: Hematemesis, Hematochezia, Melena Genitourinary: Denies: Dysuria, Hematuria Skin: Denies: Rash Subjectve: Pleasant gentleman in no apparent distress at this time. Objective: Vital Signs Temp Pulse Resp BP Pulse Ox 98.4 F 63 16 142/82 H 98 07/06/17 04:29 07/06/17 07:10 07/06/17 04:29 07/06/17 04:29 07/06/17 04:29 Oxygen Flow Rate (L/min) 2 Oxygen Delivery Method Nasal Cannula Weight: 254 lb 6.615 oz Body Mass Index (BMI) 38.7 General: Awake, Alert, Oriented x 3 HEENT: PERRL, EOMI, Sclera Non Icteric Neck: Supple, Good ROM, No Lymph Node Enlargement Lungs: Expiratory Wheezes-[place] Cardiovascular: Regular Rhythm, Normal S1, Normal S2, No Murmurs, No Rubs, No Gallops Vascular: No Carotid Bruits, Normal Femoral Pulses, Normal Radial Pulses, Normal Dorsalis Pedal Pulse, Normal Posterior Tibial Pulses Abdomen: Bowel Sounds Present, Soft, Non Tender, No HSM, No Organomegaly Extremities: No Cyanosis, No Clubbing, No edema Neurological: No Focal Motor or Sensory Deficit 07/06/17 03:00: WBC 5.4, RBC 3.97 L, Hgb 12.0 L, Hct 34.6 L, MCV 87.2, MCH 30.2 , MCHC 34.7, RDW 14.1, RDW Differential 44.3 H, Plt Count 173, MPV 9.6 07/06/17 03:00: PT 23.2 H, INR 2.1 07/06/17 03:00: Sodium 142, Potassium 3.1 L, Chloride 105, Carbon Dioxide 27.0, Anion Gap 10, BUN 29 H, Creatinine 1.26, Est GFR (MDRD) Af Amer 72, Est GFR ( MDRD) Non-Af 60, BUN/Creatinine Ratio 23.0 H, Glucose 79, Calcium 8.4 L, Triglycerides 239 H, Cholesterol 135, LDL Cholesterol 55, VLDL Cholesterol 48 H , HDL Cholesterol 32 L 07/06/17 03:00: Troponin I 0.06 07/06/17 04:00: Urine Color Yellow, Urine Clarity Clear, Urine pH 5.0, Ur Specific [place] 1.025, Urine Protein Negative, Urine Glucose (UA) Normal, Urine Ketones Negative, Urine Occult Blood Negative, Urine Nitrite Negative, Urine Bilirubin Negative, Urine Urobilinogen Normal, Ur Leukocyte Esterase 25 H , Urine RBC 0 SEEN, Urine WBC 0-5 SEEN 07/06/17 06:45: Troponin I 0.06 Rhythm: EKG: Normal sinus rhythm with a rate of 66 bpm and occasional premature ventricular complexes. Assessment/Plan 1. Chest pain. He presents with chest pain with some atypical features but minimally elevated troponin. I do not think that the above is significant and may be secondary to demand ischemia. He does have known coronary artery disease and has undergone recent evaluation within the last 18 months of his coronary anatomy with no significant flow abnormalities. My recommendation would be to obtain a pharmacologic myocardial perfusion stress test with expectation of ischemia in the inferior wall. However if no ischemia is seen in the lateral or anterior wall and will continue with aggressive medical therapy with isosorbide. This apparently had been recommended at the previous visit but it is not clear that this has been carried out. 2. Hypertension His blood pressure appears to be under better control at this time. He will continue his amlodipine increasing the dose to 10 mg a day as well as the lisinopril and the carvedilol. 3. Hyperlipidemia. Continue with aggressive high intensity statin for risk factor modification. 4. Status post ICD implantation. He will continue to have his ICD interrogated through our office. He is not had any ICD discharges and his last ICD evaluation demonstrated stable battery impedance as well as lead impedances. He has not had any further episodes of nonsustained ventricular tachyarrhythmia. 5. Left ventricular systolic dysfunction He has not had any heart failure symptoms. He does have a known cardiomyopathy with a reduced ejection fraction of approximately 30%. He will remain on the NIYA inhibitor beta-jennyfer which will be continued as well as the diuretic. Thank you for allowing me to participate in the care of your patient. Please don't hesitate to call if any issues arise
[2017-07-06] MEDS: Clopidogrel Bisulfate 75 MG Tablet PO (09:24)
[2017-07-06] MEDS: amLODIPine 5 MG Tablet PO (09:24)
[2017-07-06] MEDS: Isosorbide Mononitrate 60 MG Tablet PO (09:24)
[2017-07-06] MEDS: Famotidine 20 MG Tablet PO ×2 (09:24→21:45)
[2017-07-06] MEDS: Lisinopril 20 MG Tablet PO (09:24)
[2017-07-06] MEDS: Ranolazine 500 MG Tablet 1000 MG PO ×2 (09:25→21:45)
[2017-07-06] MEDS: Fenofibrate 145 MG Tablet PO (09:25)
[2017-07-06] MEDS: Carvedilol 6.25 MG Tablet PO ×2 (12:36→21:41)
[2017-07-06] MEDS: Furosemide 40 MG Tablet PO ×2 (12:37→17:16)
[2017-07-06 12:46] LABS: Bedside Glucose 145 mg/dL (70-110)
--- NOTE | 2017-07-06 14:28 | CASEMGMT ---
Face to Face with patient for initial transition planning/care coordination assessment. RN CARL introduced self and role at [facility], pt voices understanding and consents to assessment at this time. Pt is sitting up in bed in no distress at this time. Pt A/O x4 at this time and answers all questions appropriately at this time. Care providers, pharmacy, and demographics verified. See attached link. Pt voices no further concerns/needs at this time. Advised pt to ask for CM if any further questions/concerns/needs arise, voice understanding. CM to follow for any further discharge planning/needs. PLAN[place] [facility]
[2017-07-06] MEDS: Glucerna Shake 120 ML LIQUID PO ×3 (14:38→21:48)
--- NOTE | 2017-07-06 15:08 | STRESSREP ---
Stress Test Report Pharmacologic myocardial perfusion stress test. 71-year-old male with a history of known coronary artery disease with occluded right coronary artery and mild to moderate left anterior descending artery and circumflex disease. Stress protocol: Resting EKG demonstrates normal sinus rhythm with a rate of 65 bpm previous inferior infarct is noted. Resting blood pressure is 124/80 mmHg. 0.4 mg of regadenoson was infused per usual protocol followed by rapid intravenous saline flush injection continuous EKG monitoring was performed. Patient maintained sinus rhythm throughout the recording. The maximum heart rate attained was 89 bpm which was 59% of maximum predicted heart rate the maximum workload attained was 1 metabolic equivalent. The maximum blood pressure was 124/80 mmHg. Myocardial perfusion protocol. 14.8 mCi of technetium 99m sestamibi was injected at rest. 0.4 mg regadenoson was infused per usual protocol. At peak infusion 44.7 mCi of technetium 99m sestamibi was injected stress images were obtained stress and rest images were reconstructed and compared in the short axis vertical long and horizontal long axis. Gated images were also obtained. Perfusion SPECT analysis: Review of the stress images demonstrate a normal cardiac silhouette size. There is a large defect noted involving the inferior septal entire inferior and inferolateral wall. The inferior apical wall also has reduced perfusion. This is present on the stress and resting images. The other reynolds are well perfused. The above is suggestive of an extensive previous inferior infarct. No areas of reversibility are noted to suggest ischemia. Gated SPECT analysis: The gated ejection fraction is noted to be 41% with an akinetic inferior wall. Conclusion: Pharmacologic myocardial perfusion stress test with evidence of previous extensive inferior infarct. No ischemia is present. Ischemic cardiomyopathy.
--- NOTE | 2017-07-06 16:28 | PCM.HOSP.N ---
Hospitalist Note Seen and examined. 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 H&P, vitals, labs and plan of management reviewed. Patient admitted with chest discomfort and lower back pain. Serial troponin shows mild elevation 0.06. Patient seen by fire safety director Dr. hong. Patient has known history of coronary artery disease with inferior wall infarct. Stress test shows large defect involving the inferior septal entire inferior and inferolateral wall. The inferior apical wall also has reduced perfusion. The above is suggestive of an extensive previous inferior infarct. No areas of reversibility are noted to suggest ischemia. EF 41% with an akinetic inferior wall. Medical management was suggested. Patient also has acute lower back pain with muscle spasm for last 3 days. On Flexeril and [place]. Physical therapy suggested outpatient rehab. Lumbar spine x-ray ordered. Meds reconciliation done. Laboratory Results 07/05/17 23:00: WBC 5.4, RBC 4.15 L, Hgb 12.2 L, Hct 36.4 L, MCV 87.7, MCH 29.4, MCHC 33.5, RDW 14.3, RDW Differential 45.8 H, Plt Count 172, MPV 9.1, Immature Gran % (Auto) 0.400, Neut % (Auto) 58.4, Lymph % (Auto) 29.3, [place] % (Auto) 7.1, Eos % (Auto) 4.1, Baso % (Auto) 0.7, Absolute Neuts (auto) 3.2, Absolute Lymphs (auto) 1.58, Total Counted Not Reportable 07/05/17 23:00: Sodium 143, Potassium 3.6, Chloride 106, Carbon Dioxide 30.0, Anion Gap 7, BUN 28 H, Creatinine 1.43 H, Estim Creat Clear Calc 45.84, Est GFR (MDRD) Af Amer 63, Est GFR (MDRD) Non-Af 52 L, BUN/Creatinine Ratio 19.6, Glucose 74, Calcium 8.8, Troponin I 0.07 H 07/05/17 23:00: PT 22.4 H, INR 2.0 07/05/17 23:00: Magnesium 1.9 07/06/17 03:00: WBC 5.4, RBC 3.97 L, Hgb 12.0 L, Hct 34.6 L, MCV 87.2, MCH 30.2, MCHC 34.7, RDW 14.1, RDW Differential 44.3 H, Plt Count 173, MPV 9.6 07/06/17 03:00: PT 23.2 H, INR 2.1 07/06/17 03:00: Sodium 142, Potassium 3.1 L, Chloride 105, Carbon Dioxide 27.0, Anion Gap 10, BUN 29 H, Creatinine 1.26, Estim Creat Clear Calc 52.02, Est GFR (MDRD) Af Amer 72, Est GFR (MDRD) Non-Af 60, BUN/Creatinine Ratio 23.0 H, Glucose 79, Calcium 8.4 L, Triglycerides 239 H, Cholesterol 135, LDL Cholesterol 55, VLDL Cholesterol 48 H, HDL Cholesterol 32 L 07/06/17 03:00: Troponin I 0.06 07/06/17 04:00: Urine Color Yellow, Urine Clarity Clear, Urine pH 5.0, Ur Specific [place] 1.025, Urine Protein Negative, Urine Glucose (UA) Normal, Urine Ketones Negative, Urine Occult Blood Negative, Urine Nitrite Negative, Urine Bilirubin Negative, Urine Urobilinogen Normal, Ur Leukocyte Esterase 25 H, Urine RBC 0 SEEN, Urine WBC 0-5 SEEN, Ur Squamous Epith Cells 0-5 SEEN, Urine Bacteria 0 SEEN, Urine Mucus 0 SEEN 07/06/17 06:45: Troponin I 0.06 07/06/17 07:02: POC Glucose 94 07/06/17 12:34: POC Glucose 145 H 07/06/17 12:55: Troponin I 0.06 Clinical Impression(s) from Imaging Studies Chest X-Ray 07/05/17 22:55 IMPRESSION: No acute infiltrate. Mild cardiomegaly. Electronically Signed: Chencho Lei DO at 23:40 EDT , Service support ,
[2017-07-06 16:35] LABS: Bedside Glucose 163 mg/dL (70-110)
--- NOTE | 2017-07-06 16:36 | CCHN_ITS ---
Hospitalist Note Seen and examined. 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 H&P, vitals, labs and plan of management reviewed. Patient admitted with chest discomfort and lower back pain. Serial troponin shows mild elevation 0.06. Patient seen by consulting solution manager Dr. hong. Patient has known history of coronary artery disease with inferior wall infarct. Stress test shows large defect involving the inferior septal entire inferior and inferolateral wall. The inferior apical wall also has reduced perfusion. The above is suggestive of an extensive previous inferior infarct. No areas of reversibility are noted to suggest ischemia. EF 41% with an akinetic inferior wall. Medical management was suggested. Patient also has acute lower back pain with muscle spasm for last 3 days. On Flexeril and [place]. Physical therapy suggested outpatient rehab. Lumbar spine x-ray ordered. Meds reconciliation done. Laboratory Results 07/05/17 23:00: WBC 5.4, RBC 4.15 L, Hgb 12.2 L, Hct 36.4 L, MCV 87.7, MCH 29.4 , MCHC 33.5, RDW 14.3, RDW Differential 45.8 H, Plt Count 172, MPV 9.1, Immature Gran % (Auto) 0.400, Neut % (Auto) 58.4, Lymph % (Auto) 29.3, [place] % ( Auto) 7.1, Eos % (Auto) 4.1, Baso % (Auto) 0.7, Absolute Neuts (auto) 3.2, Absolute Lymphs (auto) 1.58, Total Counted Not Reportable 07/05/17 23:00: Sodium 143, Potassium 3.6, Chloride 106, Carbon Dioxide 30.0, Anion Gap 7, BUN 28 H, Creatinine 1.43 H, Estim Creat Clear Calc 45.84, Est GFR (MDRD) Af Amer 63, Est GFR (MDRD) Non-Af 52 L, BUN/Creatinine Ratio 19.6, Glucose 74, Calcium 8.8, Troponin I 0.07 H 07/05/17 23:00: PT 22.4 H, INR 2.0 07/05/17 23:00: Magnesium 1.9 07/06/17 03:00: WBC 5.4, RBC 3.97 L, Hgb 12.0 L, Hct 34.6 L, MCV 87.2, MCH 30.2 , MCHC 34.7, RDW 14.1, RDW Differential 44.3 H, Plt Count 173, MPV 9.6 07/06/17 03:00: PT 23.2 H, INR 2.1 07/06/17 03:00: Sodium 142, Potassium 3.1 L, Chloride 105, Carbon Dioxide 27.0, Anion Gap 10, BUN 29 H, Creatinine 1.26, Estim Creat Clear Calc 52.02, Est GFR ( MDRD) Af Amer 72, Est GFR (MDRD) Non-Af 60, BUN/Creatinine Ratio 23.0 H, Glucose 79, Calcium 8.4 L, Triglycerides 239 H, Cholesterol 135, LDL Cholesterol 55, VLDL Cholesterol 48 H, HDL Cholesterol 32 L 07/06/17 03:00: Troponin I 0.06 07/06/17 04:00: Urine Color Yellow, Urine Clarity Clear, Urine pH 5.0, Ur Specific [place] 1.025, Urine Protein Negative, Urine Glucose (UA) Normal, Urine Ketones Negative, Urine Occult Blood Negative, Urine Nitrite Negative, Urine Bilirubin Negative, Urine Urobilinogen Normal, Ur Leukocyte Esterase 25 H , Urine RBC 0 SEEN, Urine WBC 0-5 SEEN, Ur Squamous Epith Cells 0-5 SEEN, Urine Bacteria 0 SEEN, Urine Mucus 0 SEEN 07/06/17 06:45: Troponin I 0.06 07/06/17 07:02: POC Glucose 94 07/06/17 12:34: POC Glucose 145 H 07/06/17 12:55: Troponin I 0.06 Clinical Impression(s) from Imaging Studies Chest X-Ray 07/05/17 22:55 IMPRESSION: No acute infiltrate. Mild cardiomegaly. Electronically Signed: Chencho Lei DO at 23:40 EDT , Service support ,
[2017-07-06] MEDS: HYDROcodone Bitartrate/Apap 5/325 Tablet PO (16:46)
--- NOTE | 2017-07-06 17:00 | RAD_ITS ---
STUDY: X-RAY - LUMBAR SPINE REASON FOR EXAM: Male, 71 years old. Low Back Pain TECHNIQUE: 3 view(s) of the lumbar spine were obtained. COMPARISON: None FINDINGS: Normal lumbar lordosis. There is a levoscoliosis of the lumbar spine. There is a normal alignment of the vertebrae. There is multilevel endplate spondylosis of the lumbar vertebrae. Normal disc space heights. There is atherosclerotic calcification of the abdominal aorta without a demonstrated aneurysm. RAD/Lumbar Spine 2 or 3 Views IMPRESSION: Degenerative changes of the spine, as detailed above. No fracture. Electronically Signed: Chencho Lei DO at 19:03 EDT , Service support ,
[2017-07-06] MEDS: Albuterol 2.5 MG/3 ML VIAL.NEB. INHALATION (20:08)
[2017-07-06] MEDS: Insulin NPH Human 100 UNITS/ML PEN 32 UNITS SC (21:43)
[2017-07-06] MEDS: Atorvastatin Calcium 80 MG Tablet PO (21:44)
[2017-07-06 21:56] LABS: Bedside Glucose 195 mg/dL (70-110)
[2017-07-07 03:00] VITALS: PULSE 60
[2017-07-07 03:30] VITALS: BP 109/77; PULSE 60; RESP 18; TEMP 36.5; O2SAT 99
[2017-07-07 06:17] LABS: International Normalized Ratio 2.1
[2017-07-07 06:50] VITALS: PULSE 61
[2017-07-07 06:56] LABS: Bedside Glucose 152 mg/dL (70-110)
[2017-07-07 07:32] VITALS: O2SAT 96
[2017-07-07] MEDS: Gabapentin 600 MG Tablet PO ×2 (08:07→11:53)
[2017-07-07] MEDS: Aspirin 81 MG TAB.CHEW PO (08:07)
--- NOTE | 2017-07-07 08:48 | PCM.PN.CARD ---
Subjectve: Patient seen and evaluated. Appears to be doing much better. Objective: Vital Signs Temp Pulse Resp BP Pulse Ox 97.7 F L 61 18 109/77 99 07/07/17 03:30 07/07/17 06:50 07/07/17 03:30 07/07/17 03:30 07/07/17 03:30 Oxygen Flow Rate (L/min) 2 Oxygen Delivery Method Room Air Weight: 254 lb 6.615 oz Body Mass Index (BMI) 38.7 Intake and Output for Last 24 Hours 07/05/17 07/06/17 07/07/17 23:59 23:59 23:59 Intake Total 1501 / 1501 Output Total 1750 / 1750 450 / 450 Balance -249 / -249 -450 / -450 General: Awake, Alert, Oriented x 3 HEENT: PERRL, EOMI, Sclera Non Icteric Neck: Supple, Good ROM, No Lymph Node Enlargement Lungs: Clear to auscultation Cardiovascular: Regular Rhythm, Normal S1, Normal S2, No Murmurs, No Rubs, No Gallops Vascular: No Carotid Bruits, Normal Femoral Pulses, Normal Radial Pulses, Normal Dorsalis Pedal Pulse, Normal Posterior Tibial Pulses Abdomen: Bowel Sounds Present, Soft, Non Tender, No HSM, No Organomegaly Extremities: No Cyanosis, No Clubbing, No edema Neurological: No Focal Motor or Sensory Deficit 07/06/17 12:55: Troponin I 0.06 07/07/17 05:50: PT 24.0 H, INR 2.1 Rhythm: EKG: ECHO: Stress Test: Cardiac Cath: PCI: CT Surgery: Holter monitor: EPS: PPM: CXR: Chest CT Scan: Medical Necessity - Tobacco Use Smoking Status: Former smoker Tobacco Use: Non-smoker Assessment/Plan 1. Chest pain. He presents with chest pain with some atypical features but minimally elevated troponin. I do not think that the above is significant and may be secondary to demand ischemia. He does have known coronary artery disease and has undergone recent evaluation within the last 18 months of his coronary anatomy with no significant flow abnormalities. The pharmacologic stress test did not demonstrate any evidence of ischemia. There was extensive previous inferior infarct noted. We will therefore continue with aggressive medical therapy. This apparently had been recommended at the previous visit but it is not clear that this has been carried out. 2. Hypertension His blood pressure appears to be under better control at this time. He will continue his amlodipine increasing the dose to 10 mg a day as well as the lisinopril and the carvedilol. 3. Hyperlipidemia. Continue with aggressive high intensity statin for risk factor modification. 4. Status post ICD implantation. He will continue to have his ICD interrogated through our office. He is not had any ICD discharges and his last ICD evaluation demonstrated stable battery impedance as well as lead impedances. He has not had any further episodes of nonsustained ventricular tachyarrhythmia. 5. Left ventricular systolic dysfunction He has not had any heart failure symptoms. He does have a known cardiomyopathy with a reduced ejection fraction of approximately 30%. He will remain on the NIYA inhibitor beta-jennyfer which will be continued as well as the diuretic. The patient can be followed up as an outpatient. Thank you for allowing me to participate in the care of your patient. Please don't hesitate to call if any issues arise
[2017-07-07] MEDS: amLODIPine 5 MG Tablet PO (09:26)
[2017-07-07] MEDS: Ranolazine 500 MG Tablet 1000 MG PO (09:26)
[2017-07-07] MEDS: Lisinopril 10 MG Tablet PO (09:26)
[2017-07-07] MEDS: Fenofibrate 145 MG Tablet PO (09:26)
[2017-07-07] MEDS: Furosemide 40 MG Tablet PO (09:26)
[2017-07-07] MEDS: Isosorbide Mononitrate 60 MG Tablet PO (09:26)
[2017-07-07] MEDS: Glucerna Shake 120 ML LIQUID PO (09:26)
[2017-07-07] MEDS: Clopidogrel Bisulfate 75 MG Tablet PO (09:26)
[2017-07-07] MEDS: Famotidine 20 MG Tablet PO (09:26)
[2017-07-07] MEDS: Carvedilol 6.25 MG Tablet PO (09:26)
[2017-07-07] MEDS: Insulin NPH Human 100 UNITS/ML PEN 25 UNITS SC (09:28)
[2017-07-07 09:30] VITALS: BP 130/82; PULSE 66; RESP 18; TEMP 36.5; O2SAT 96
[2017-07-07 10:57] VITALS: PULSE 67
--- NOTE | 2017-07-07 11:12 | DCINST_ITS ---
You will use the following diet at home:: Calorie/Carbohydrate Controlled ( specify 1200, 1400, etc) - 1800 ada DIET Discharge Activity: May not drive while taking narcotic pain medications. Weight Bearing Status: Weight bearing as tolerated Allergies/Adverse Reactions: Allergies ceftriaxone sodium [From Rocephin] Allergy (Verified 07/05/17 22:52) Rash milk Adverse Reaction (Verified 07/05/17 22:52) Diarrhea morphine Adverse Reaction (Verified 07/05/17 22:52) hallucinations Medications to take at Discharge Aspirin [Aspirin, Baby] 81 mg PO DAILY 12/04/14 Clopidogrel Bisulfate [Plavix] 75 mg PO DAILY 12/04/14 Insulin NPH Human [Humulin N Pen] 32 units SC DAILY 12/04/14 Metformin HCl [Glucophage] 500 mg PO BIDCM 12/04/14 Rosuvastatin Calcium [Crestor] 40 mg PO QHS 12/04/14 Furosemide [Lasix] 40 mg PO BID 12/14/14 Pantoprazole Sodium [Protonix] 40 mg PO DAILY 02/02/15 Fenofibrate [Tricor] 145 mg PO DAILY 02/14/16 Nitroglycerin [Nitrostat] 0.4 mg SUBLINGUAL Q5M PRN #0 tab 05/31/16 Carvedilol [Coreg] 6.25 mg PO BID 07/01/16 amlodipine 5 mg tablet 5 mg PO DAILY tab 07/03/17 gabapentin 600 mg tablet 600 mg PO TID 07/03/17 warfarin 5 mg tablet 9 mg PO TUTH 07/03/17 warfarin 7.5 mg tablet 6 mg PO SUMOWEFRSA 07/03/17 Isosorbide Mononitrate [Isosorbide Mononitrate ER] 60 mg PO DAILY 07/06/17 Ranolazine [Ranexa] 1,000 mg PO BID 07/06/17 Cyclobenzaprine [Flexeril] 10 mg PO TID PRN PRN #30 tab 07/07/17 Insulin Lispro [Humalog] 30 unit SQ TIDCM #0 07/07/17 Insulin NPH Human Isophane [Humulin N Vial] 32 units SQ QHS #0 07/07/17 Lisinopril [Zestril] 10 mg PO DAILY #0 07/07/17 Potassium Chloride [K-Dur] 40 meq PO DAILYCM #30 tab 07/07/17 traMADol [Ultram] 50 mg PO Q6H PRN PRN #10 tablet 07/07/17 The following prescriptions were given: traMADol [Ultram] 50 mg PO Q6H PRN PRN #10 tablet PRN Reason: Severe Pain (-01/06) Cyclobenzaprine [Flexeril] 10 mg PO TID PRN PRN #30 tab PRN Reason: muscle spasm Potassium Chloride [K-Dur] 40 meq PO DAILYCM #30 tab Primary Care Physician: Gilbert Keyes III, MD [Primary Care Provider] - Please follow up with your Primary Care Physician in: IN 2 WEEKS Please Follow Up With: Johan Perry MD When: IN 3-4 WEEKS
[2017-07-07 11:21] LABS: Bedside Glucose 222 mg/dL (70-110)
--- NOTE | 2017-07-07 11:26 | DS.PCM_ITS ---
Discharge Date and Diagnosis Date of Admission: 07/06/17 Date of Discharge: 07/07/17 - Primary Discharge Diagnosis Atypical chest pain with minimally elevated troponin most probably due to demand ischemia. - Secondary Discharge Diagnosis Chronic Problems (Last Updated 07/03/17 @ 11:35 by Melissa Marks) Hyperlipidemia (Chronic) History of non-ST elevation myocardial infarction (NSTEMI) (Chronic) Atherosclerotic heart disease of [place] coronary artery with other forms of angina pectoris (Chronic) 1990, 1992, 06/1997; Cutting balloon, PTCA/stent of ostium of proximal lateral CX 11/22/02; C, PTCA/stent to proximal OM 01/2008;[facility] 06/20/2011; FFR and IVUS @ [facility]; [facility] 12/15/14 w/tsfer to [facility] for PTCA and LEANNA to in-tent restenosis of proximal OM; [facility] 02/07/2015; [facility] 02/15/2016: [facility] w/FFR of LAD, DX , CX 05/30/2016 Stented coronary artery (Chronic) 1990, 1992, 06/1997; Cutting balloon, PTCA/stent of ostium of proximal lateral CX 11/22/02; [facility], PTCA/stent to proximal OM 01/2008;[facility] 06/20/2011; FFR and IVUS @ [facility]; [facility] 12/15/14 w/tsfer to [facility] for PTCA and LEANNA to in-tent restenosis of proximal OM; [facility] 02/07/2015; [facility] 02/15/2016: [facility] w/FFR of LAD, DX , CX 05/30/2016 History of left heart catheterization (Chronic) 1990, 1992, 06/1997; Cutting balloon, PTCA/stent of ostium of proximal lateral CX 11/22/02; [facility], PTCA/stent to proximal OM 01/2008;[facility] 06/20/2011; FFR and IVUS @ [facility]; [facility] 12/15/14 w/tsfer to [facility] for PTCA and LEANNA to in-tent restenosis of proximal OM; [facility] 02/07/2015; [facility] 02/15/2016: [facility] w/FFR of LAD, DX , CX 05/30/2016 Nonrheumatic tricuspid (valve) insufficiency (Chronic) Per echo 12/04/2014: Moderate(2+), RVSP 36mmhg ICD (implantable cardioverter-defibrillator) in place (Chronic) 11/23/[address] Elmer Duong at [facility] Ischemic cardiomyopathy (Chronic) EF 40% per echo 12/04/2014 Type II diabetes mellitus (Chronic) History of DVT (deep vein thrombosis) (Chronic) Supraventricular arrhythmia (Chronic) Ventricular arrhythmia (Chronic) Obesity (BMI 30-39.9) (Chronic) Hypertension (Chronic) Hospital Course and Treatment Summary of Care Provided: [] This is a 71-year-old gentleman known history of coronary artery disease with inferior wall IN in the past admitted in the PCU floor with chest discomfort and lower back pain. Serial troponin shows mild elevation 0.06. Patient seen by application integrator Dr. hong. The patient was seen and examined today. Pain is better today General: awake, alert, oriented x 3 and cooperative Skin: BL LE chronic venous stasis skin changes. HEENT:EOMI, PERRLA, no carotid bruits or JVD noted. Lungs: Air entry diminished in bilateral lung bases. No crepitation or rhonchi. Heart: Regular rate and rhythm; no gallop, rub audible. Abdomen: soft, obese, NT/ND, normal BS. Extremities: no cyanosis, clubbing, Mild pedal edema. MSK: Tenderness over lumbar spine and paraspinal muscle. Neurological: patient awake, alert, oriented x 3; cranial nerves II-XII grossly normal Atypical chest pain with minimally elevated troponin most probably due to demand ischemia. Stress test shows large defect involving the inferior septal entire inferior and inferolateral wall. The inferior apical wall also has reduced perfusion. The above is suggestive of an extensive previous inferior infarct. No areas of reversibility are noted to suggest ischemia. EF 41% with an akinetic inferior wall. Medical management was suggested. Lipid profile shows total bili is at 239, LDL 55, HDL 32. Patient on Crestor 40 mg daily. Patient also has acute lower back pain with muscle spasm for last 3 days. On Flexeril and [place]. Physical therapy suggested outpatient rehab. Lumbar spine x-ray was done and shows chronic degenerative changes with no acute fracture. Medication reconciliation done. Patient was given a prescription of tramadol and Flexeril for acute back pain. Discharge follow-up instructions completed. Laboratory Results 07/06/17 16:32: POC Glucose 163 H 07/06/17 21:40: POC Glucose 195 H 07/07/17 05:50: PT 24.0 H, INR 2.1 07/07/17 06:52: POC Glucose 152 H 07/07/17 11:08: POC Glucose 222 H Discharge Activity: May not drive while taking narcotic pain medications. Weight Bearing Status: Weight bearing as tolerated Home Medications: Medications to take at Discharge Aspirin [Aspirin, Baby] 81 mg PO DAILY 12/04/14 Clopidogrel Bisulfate [Plavix] 75 mg PO DAILY 12/04/14 Insulin NPH Human [Humulin N Pen] 32 units SC DAILY 12/04/14 Metformin HCl [Glucophage] 500 mg PO BIDCM 12/04/14 Rosuvastatin Calcium [Crestor] 40 mg PO QHS 12/04/14 Furosemide [Lasix] 40 mg PO BID 12/14/14 Pantoprazole Sodium [Protonix] 40 mg PO DAILY 02/02/15 Fenofibrate [Tricor] 145 mg PO DAILY 02/14/16 Nitroglycerin [Nitrostat] 0.4 mg SUBLINGUAL Q5M PRN #0 tab 05/31/16 Carvedilol [Coreg] 6.25 mg PO BID 07/01/16 amlodipine 5 mg tablet 5 mg PO DAILY tab 07/03/17 gabapentin 600 mg tablet 600 mg PO TID 07/03/17 warfarin 5 mg tablet 9 mg PO TUTH 07/03/17 warfarin 7.5 mg tablet 6 mg PO SUMOWEFRSA 07/03/17 Isosorbide Mononitrate [Isosorbide Mononitrate ER] 60 mg PO DAILY 07/06/17 Ranolazine [Ranexa] 1,000 mg PO BID 07/06/17 Cyclobenzaprine [Flexeril] 10 mg PO TID PRN PRN #30 tab 07/07/17 Insulin Lispro [Humalog] 30 unit SQ TIDCM #0 07/07/17 Insulin NPH Human Isophane [Humulin N Vial] 32 units SQ QHS #0 07/07/17 Lisinopril [Zestril] 10 mg PO DAILY #0 07/07/17 Potassium Chloride [K-Dur] 40 meq PO DAILYCM #30 tab 07/07/17 traMADol [Ultram] 50 mg PO Q6H PRN PRN #10 tablet 07/07/17 Following Prescrptions Were Given to Patient: traMADol [Ultram] 50 mg PO Q6H PRN PRN #10 tablet PRN Reason: Severe Pain (-01/06) Cyclobenzaprine [Flexeril] 10 mg PO TID PRN PRN #30 tab PRN Reason: muscle spasm Potassium Chloride [K-Dur] 40 meq PO DAILYCM #30 tab Primary Care Physician: Gilbert Keyes III, MD [Primary Care Provider] - Please follow up with your Primary Care Physician in: IN 2 WEEKS Please Follow Up With: Johan Hong MD When: IN 3-4 WEEKS Medical Necessity - Tobacco Use Smoking Status: Former smoker Tobacco Use: Non-smoker Meaningful Use Info Meaningful Use Diagnoses (Choose all that apply): None applicable Code Visit Inpatient E&M: 92754 Disch Hosp OBSV E&M: 44639 Observation care discharge
--- NOTE | 2017-07-09 16:08 | CASEMGMT ---
DIANA HENRY DISCHARGE F/U PHONE CALL LACE: 9 STRATA: 3 CALL DATE: 07/09/17 DISCHARGE DATE: 07/07/17 TIME OF CALL: 1610 DURATION: ATTEMPT ADM DX: CHEST PAIN PT'S ANSWERED PHONE AND STATED THAT PT WAS SLEEPING AT THIS TIME. STATES THAT PT HAS BEEN DOING 'A LOT BETTER' AND THAT HE IS 'BREATHING BETTER.' THIS RN CARL'S PHONE NUMBER LEFT WITH SO THAT PT COULD RETURN CALL WHEN ABLE. SSTATEN DIANA HENRY
== END 2017-07-07 12:05 | disposition home or self-care (01) | DRG 303 ==
LOC: ED 23:15 → PCU 07-06 00:41
PROVIDERS: Admitting Provider Family Medicine; Emergency Provider Emergency Medicine; Family Provider Family Medicine; PCP Family Medicine; Visit Provider Internal Medicine
DX: I25.118 Atherosclerotic heart disease of native coronary artery with other forms of angina pectoris (principal); I24.8 Other forms of acute ischemic heart disease; E78.5 Hyperlipidemia, unspecified; I25.2 Old myocardial infarction; I25.5 Ischemic cardiomyopathy; I10 Essential (primary) hypertension; E11.9 Type 2 diabetes mellitus without complications; E66.9 Obesity, unspecified; Z68.38 Body mass index [BMI] 38.0-38.9, adult; Z95.5 Presence of coronary angioplasty implant and graft; Z87.891 Personal history of nicotine dependence; Z95.810 Presence of automatic (implantable) cardiac defibrillator; Z86.718 Personal history of other venous thrombosis and embolism; Z71.3 Dietary counseling and surveillance; I48.0 Paroxysmal atrial fibrillation; Z79.01 Long term (current) use of anticoagulants
CPT/HCPCS: 36415; 71045; 72100; 78452; 80048; 80061; 81001; 82962; 83735; 84484; 85025; 85027; 85610; 87086; 87088; 93005; 93017; 93306; 94640; 97162; 97166; 97802; 99285; A9500; J7030; A4216; J2785

== ENCOUNTER 2017-08-25 17:29 | Emergency (ER) | payer MEDICARE, OTHER, SELFPAY ==
[2016-05-30 15:09] VITALS: BMI 37.2
[2017-08-25 17:30] VITALS: BP 125/81; PULSE 91; RESP 16; TEMP 37.6; O2SAT 94; BMI 38.9
[2017-08-25 18:10] LABS: Absolute Lymphocyte Count 1.24 X10^3/ul (0.83-4.51); Absolute Neutrophil Count 4.2 X10^3/uL (2.0-7.7); Basophil# 0.03 X10^3/uL; Basophil% 0.5 % (0-1); Eosinophil# 0.17 X10^3/uL; Eosinophils% 2.8 % (0-5); Hematocrit 35.3 % (40-54); Hemoglobin 11.8 g/dl (13.0-16.5); Lymphocyte # 1.24 X10^3/ul (4.0); Lymphocyte % 20.4 % (19-41); Mean Corp Hgb Conc 33.4 g/gl (32-36); Mean Corpuscular Hgb 28.9 pg (27.0-32.0); Mean Corpuscular Volume 86.5 fL (80-94); Mean Platelet Vol. 9.3 fl (6.2-12.0); Monocyte# 0.41 X10^3/uL; Monocyte% 6.7 % (0-10); Neutrophil # 4.22 X10^3/uL (2.7-7.7); Neutrophil % 69.3 % (47-70); POSITIVE DIFFERENTIAL NO; Platelet Count 158 K/mm3 (150-450); RBC Distribution Width CV 14.9 % (11.6-14.6); RBC Distribution Width SD 47.3 fl (35.1-43.9); Red Blood Count 4.08 M/mm3 (4.6-6.2); White Blood Count 6.1 K/mm3 (4.4-11.0)
[2017-08-25 18:11] LABS: POSITIVE COUNT NO; POSITIVE MORPHOLOGY NO
[2017-08-25 18:18] VITALS: BP 133/80; PULSE 80; RESP 18; O2SAT 94
[2017-08-25 18:25] LABS: Anion Gap 7 (5-15); BUN 19 mg/dL (7-18); BUN/Creat Ratio 16.7 RATIO (10-20); Calcium,Total 8.5 mg/dL (8.5-10.1); Chloride 107 mmol/L (98-107); Creatinine, Serum 1.14 mg/dL (0.70-1.30); EST Glomerular Filtration Rate 67 mL/min (>60); Est Glom Filt Rate - Afr Amer 81 mL/min (>60); Glucose 118 mg/dL (74-106); Potassium 3.7 mmol/L (3.5-5.1); Sodium Level 142 mmol/L (136-145)
--- NOTE | 2017-08-25 18:45 | CT_ITS ---
CT Abdomen And Pelvis W/ Contrast INDICATION: LLQ PAIN SINCE THURSDAY/NAUSEA/NO BM SINCE ONSET COMPARISON: None TECHNIQUE: axial CT examination of the abdomen and pelvis with coronal and sagittal reformatted images. 100 mL of Isovue-300 were given intravenously. FINDINGS: Visualized lung bases are clear. The heart size is normal. The liver, gallbladder, spleen, adrenal glands, and pancreas demonstrate unremarkable noncontrast CT appearance. The kidneys enhance contrast symmetrically bilaterally and are without evidence of hydronephrosis. The bowel loops are nondistended. The appendix is unremarkable. There is scattered diverticulosis of the distal colon. There is focal wall thickening of the distal descending colon and proximal sigmoid colon with mild adjacent fat stranding. No evidence of free air or drainable fluid collection. Urinary bladder is unremarkable. The osseous structures demonstrate degenerative changes at the lumbar spine. CT/Abdomen/Pelvis W IV Cont ONLY IMPRESSION: Focal wall thickening of the distal descending colon and sigmoid colon with adjacent inflammatory fat stranding. This may represent focal colitis or diverticulitis. Underlying distal colonic diverticulosis is noted. No evidence of perforation or abscess formation. at 1934 Reported and signed by: Barbara Kidd MD Electronically Signed: Barbara Kidd MD at 19:32 EDT Tel , Service support ,
[2017-08-25 19:48] LABS: Bacteria 0 SEEN /hpf (None Seen); Mucous, Urine 0 SEEN /hpf (<or=2+); Red Blood Cells-Urine 0 SEEN /hpf (0-5); Squamous Epithelial Cells - UA 0 SEEN /hpf (0-5)
[2017-08-25 19:50] LABS: Lactic Acid 0.8 mmol/L (0.4-2.0)
[2017-08-25 19:55] LABS: Color, Urine Yellow (Yellow); Glucose, Dipstick Normal (Normal); Ketone-Dipstick Negative (Negative); Leukocyte Esterase-Dipstick 100 /ul (Negative); Nitrite-Dipstick Negative (Negative); Occult Blood-Urine Negative /ul (Negative); Protein-Dipstick Negative (Negative); Urine Bilirubin Dipstick Negative (Negative); Urine Clarity Clear (Clear); Urine Urobilinogen 4 mg/dl (Normal); Urine pH 6.5 (5.0 - 8.0)
[2017-08-25 20:03] LABS: White Blood Cells 0-5 SEEN /hpf (0-5)
[2017-08-25 20:23] VITALS: BP 128/85; PULSE 85; RESP 14; O2SAT 98
--- NOTE | 2017-08-25 20:46 | ED.VISSUMM ---
- ER Visit Summary Date of Service: 08/25/17 Chief Complaint: Abdominal pain History of Present Illness: The patient is a 71 M who notes 4 days of continuous sharp left lower quadrant abdominal pain. He notes nausea and constipation. He was seen by his primary care physician was sent to the emergency room. Dr. Keyes his primary care physician did call me. He notes the patient had a colonoscopy in the past which demonstrated diverticulosis but he has never had diverticulitis or colitis. He is on Coumadin. Physical Examination: Afebrile vital signs are stable triage temperature 99.7 was noted personally took the temperature orally at 98.6. Gen: Well-nourished well-developed Head: Normocephalic atraumatic Eyes: Perrl EOMI ENT: TMs clear no rhinorrhea moist mucous membranes Neck: Supple no lymphadenopathy no JVD nontender CVS: Regular rate rhythm no murmurs normal S1-S2 Respiratory: No distress clear to auscultation bilaterally chest nontender Abdomen: Soft hypoactive bowel sounds. Patient has tenderness and guarding in the left lower quadrant. Back: Nontender Extremity: Nontender no edema Skin: Normal color no rash Neuro: alert orientated ?3 CN II-XII intact normal strength sensation reflexes gait cerebellar Psych: Normal affect normal mood Test Results: White count 6.1. Hemoglobin 11.8. Urinalysis normal. Lactic acid 0.8. CT the abdomen pelvis demonstrated what appears to be a diverticulitis without perforation or abscess formation. Patient received IV fluids. We will place him on Cipro and Flagyl as well as some Zofran and OxyIR. I have asked that he have follow-up with his primary care physician. He needs to have his INR checked at the end of the week. Patient understands return instructions. Impression: 1. Acute diverticulitis This note was generated with [employer] dictation software. It may contain incorrect words, spelling, and punctuation that were not noted in review of the chart prior to signing ED Disposition - Plan for ED Patient: Disposition: Home or Assisted Living Chief Complaint: Abd Pain Instructions: ED Diverticulitis Prescriptions: Hydrocodone Bitart/Apap 5-325 [[place] 5MG-325MG] 1 tab PO Q6H PRN PRN 3 Days #10 tab PRN Reason: Pain Ondansetron [Zofran Odt] 4 mg PO Q8H PRN PRN #10 tab PRN Reason: Nausea Metronidazole [Flagyl] 500 mg PO Q8H #30 tab Ciprofloxacin [Cipro] 500 mg PO BID #20 tab Referrals: Gilbert Keyes III, MD [Primary Care Provider] - 1 Week Additional Instructions: You should have your INR rechecked on Thursday of this week
[2017-08-25] MEDS: Ciprofloxacin 500 MG Tablet PO (21:11)
[2017-08-25] MEDS: metroNIDAZOLE 500 MG Tablet PO (21:12)
== END 2017-08-25 21:23 | disposition home or self-care (01) ==
PROVIDERS: Emergency Medicine; Emergency Provider Emergency Medicine; Family Provider Family Medicine; PCP Family Medicine
DX: K57.92 Diverticulitis of intestine, part unspecified, without perforation or abscess without bleeding (principal); I25.10 Atherosclerotic heart disease of native coronary artery without angina pectoris; E11.9 Type 2 diabetes mellitus without complications; I10 Essential (primary) hypertension; E78.00 Pure hypercholesterolemia, unspecified; I42.9 Cardiomyopathy, unspecified; Z79.4 Long term (current) use of insulin; Z79.82 Long term (current) use of aspirin; Z79.01 Long term (current) use of anticoagulants; Z79.02 Long term (current) use of antithrombotics/antiplatelets; Z79.899 Other long term (current) drug therapy; Z87.891 Personal history of nicotine dependence
CPT/HCPCS: 74177; 80048; 81001; 83605; 85025; 99284; J7040; Q9967; A4216

== ENCOUNTER 2017-11-15 18:43 | Emergency (ER) | payer MEDICARE, OTHER, SELFPAY ==
[2017-11-06 10:25] VITALS: BMI 37.2
[2017-11-15 18:44] VITALS: BP 132/87; PULSE 89; RESP 16; TEMP 36.7; O2SAT 95; BMI 38.5
[2017-11-15 19:27] VITALS: O2SAT 95
[2017-11-15] MEDS: Aspirin 81 MG TAB.CHEW 324 MG PO (19:29)
[2017-11-15 19:45] LABS: Absolute Lymphocyte Count 1.33 X10^3/ul (0.83-4.51); Basophil# 0.03 X10^3/uL; Basophil% 0.5 % (0-1); Eosinophil# 0.19 X10^3/uL; Eosinophils% 3.2 % (0-5); Hemoglobin 13.1 g/dl (13.0-16.5); Lymphocyte # 1.33 X10^3/ul (4.0); Lymphocyte % 22.6 % (19-41); Mean Corp Hgb Conc 33.6 g/gl (32-36); Mean Corpuscular Hgb 29.2 pg (27.0-32.0); Mean Corpuscular Volume 86.9 fL (80-94); Mean Platelet Vol. 9.8 fl (6.2-12.0); Monocyte# 0.37 X10^3/uL; Monocyte% 6.3 % (0-10); Neutrophil # 3.96 X10^3/uL (2.7-7.7); Neutrophil % 67.4 % (47-70); Platelet Count 151 K/mm3 (150-450); RBC Distribution Width CV 14.6 % (11.6-14.6); RBC Distribution Width SD 46.4 fl (35.1-43.9); Red Blood Count 4.49 M/mm3 (4.6-6.2); White Blood Count 5.9 K/mm3 (4.4-11.0)
[2017-11-15 19:56] LABS: POSITIVE COUNT NO; POSITIVE DIFFERENTIAL NO; POSITIVE MORPHOLOGY NO
[2017-11-15 19:58] LABS: Anion Gap 7 (5-15); BUN 19 mg/dL (7-18); BUN/Creat Ratio 14.6 RATIO (10-20); Calcium,Total 8.3 mg/dL (8.5-10.1); Chloride 109 mmol/L (98-107); EST Glomerular Filtration Rate 58 mL/min (>60); Est Glom Filt Rate - Afr Amer 70 mL/min (>60); Estimated Creatinine Clearance 49.69 ml/min; Glucose 172 mg/dL (74-106); Magnesium 1.7 mg/dL (1.6-2.6); Potassium 3.7 mmol/L (3.5-5.1); Sodium Level 141 mmol/L (136-145)
[2017-11-15 20:23] VITALS: BP 126/84; PULSE 78; RESP 17; O2SAT 97
--- NOTE | 2017-11-15 20:50 | ED.RN ---
[employer] CALLED TO OBTAIN INFORMATION ABOUT INTERROGATING DEVICE AND MACHINE NOT WORKING BY PREVIOUS NURSE. [employer] STATED THAT PT MODEL IS NOT SUPPORTED BY DEVICE AND WOULD PAGE INDIVIDUAL TO COME TO ER TO INTERROGATE IT.
--- NOTE | 2017-11-15 21:41 | ED.VISSUMM ---
- ER Visit Summary Date of Service: 11/15/17 Chief Complaint: Pacemaker fired History of Present Illness: The patient is a 72 M who presents after his AICD fired. He was asymptomatic working with a tool. He had a single shock. He also currently has no new complaints. He does note that he has been feeling short of breath for months but that this is unchanged. He complains of 3 months of diarrhea again unchanged. He has also had some recent cough and rhinorrhea. He denies any chest pain. He denies fevers or vomiting. Physical Examination: Afebrile vitals are stable Heart regular rate and rhythm Lungs are clear Abdomen soft Alert Test Results: EKG shows sinus rhythm at a rate of 89 with occasional PVC and right bundle branch block there are lateral T-wave inversions and inferior Q waves. This appears similar to prior EKG. His laboratory studies including CBC BMP unremarkable. Magnesium normal. Troponin 0 0.079. Emergency Department Course and Treatment: Patient has no recent illness and no new complaints and feels that his current baseline for the past several months. We did have the device interrogated. Patient had a single episode of ventricular tachycardia which was successfully terminated with a single shock. They do note that the device is at the end of its life and will require replacement. I did speak to Dr. Perry. The turbine engineer will be at this facility on . He will arrange for a device change. Patient does understand return for new worsening or recurrent symptoms. He is comfortable with this plan. He was discharged. Treatment Plan: [] Disposition: Discharge Impression: Ventricular tachycardia This note was generated with [employer] dictation software. It may contain incorrect words, spelling, and punctuation that were not noted in review of the chart prior to signing ED Disposition - Plan for ED Patient: Chief Complaint: Chest Other Referrals: Gilbert Keyes III, MD [Primary Care Provider] -
--- NOTE | 2017-11-15 21:45 | ED.DEP ---
ED Disposition - Plan for ED Patient: Chief Complaint: Chest Other Instructions: Ventricular Arrhythmia, Implantable Cardioverter Defibrillator (ICD) Referrals: Gilbert Keyes III, MD [Primary Care Provider] - Johan Perry MD [STAFF PHYSICIAN] -
[2017-11-15 21:50] VITALS: BP 149/68; PULSE 68; RESP 17; O2SAT 94
== END 2017-11-15 21:51 | disposition home or self-care (01) ==
LOC: ED 19:14
PROVIDERS: Emergency Provider Emergency Medicine; Family Provider Family Medicine; PCP Family Medicine
DX: I47.2 Ventricular tachycardia (principal); I49.3 Ventricular premature depolarization; I45.10 Unspecified right bundle-branch block; Z95.810 Presence of automatic (implantable) cardiac defibrillator; R19.7 Diarrhea, unspecified; R05 Cough; J34.89 Other specified disorders of nose and nasal sinuses; I25.10 Atherosclerotic heart disease of native coronary artery without angina pectoris; I25.2 Old myocardial infarction; E11.9 Type 2 diabetes mellitus without complications; I10 Essential (primary) hypertension; E78.00 Pure hypercholesterolemia, unspecified; Z79.4 Long term (current) use of insulin; Z79.01 Long term (current) use of anticoagulants; Z79.02 Long term (current) use of antithrombotics/antiplatelets; Z79.899 Other long term (current) drug therapy
CPT/HCPCS: 71046; 80048; 83735; 84484; 85025; 93005; 99285; A4216

== ENCOUNTER 2017-11-19 10:53 | Day surgery (SDC) | payer MEDICARE, OTHER, SELFPAY ==
[2017-11-06 10:25] VITALS: BMI 37.2
[2017-11-16 12:24] LABS: Bacteria 0 SEEN /hpf (None Seen); Mucous, Urine 0 SEEN /hpf (<or=2+); Red Blood Cells-Urine 0 SEEN /hpf (0-5)
[2017-11-16 12:54] LABS: Color, Urine Yellow (Yellow); Glucose, Dipstick 250 mg/dl (Normal); Ketone-Dipstick Negative (Negative); Leukocyte Esterase-Dipstick 25 /ul (Negative); Nitrite-Dipstick Negative (Negative); Occult Blood-Urine Negative /ul (Negative); Protein-Dipstick Negative (Negative); Urine Bilirubin Dipstick Negative (Negative); Urine Clarity Clear (Clear); Urine Urobilinogen Normal (Normal)
[2017-11-16 13:01] LABS: Hematocrit 37.4 % (40-54); Hemoglobin 12.8 g/dl (13.0-16.5); Mean Corp Hgb Conc 34.2 g/gl (32-36); Mean Corpuscular Hgb 29.6 pg (27.0-32.0); Mean Corpuscular Volume 86.4 fL (80-94); Mean Platelet Vol. 10.2 fl (6.2-12.0); Platelet Count 139 K/mm3 (150-450); RBC Distribution Width CV 14.4 % (11.6-14.6); RBC Distribution Width SD 44.9 fl (35.1-43.9); Red Blood Count 4.33 M/mm3 (4.6-6.2); White Blood Count 4.3 K/mm3 (4.4-11.0)
[2017-11-16 13:05] LABS: Scan Indicated on CBC? Y/N NO
[2017-11-16 13:22] LABS: Anion Gap 5 (5-15); BUN 17 mg/dL (7-18); BUN/Creat Ratio 16.5 RATIO (10-20); Calcium,Total 8.5 mg/dL (8.5-10.1); Chloride 107 mmol/L (98-107); Creatinine, Serum 1.03 mg/dL (0.70-1.30); EST Glomerular Filtration Rate 75 mL/min (>60); Est Glom Filt Rate - Afr Amer 91 mL/min (>60); Glucose 215 mg/dL (74-106); Sodium Level 140 mmol/L (136-145)
[2017-11-16 13:36] LABS: BNP,B-Type NATRIURETIC PEPTIDE 34.7 pg/mL (0-100)
[2017-11-16 13:48] LABS: Squamous Epithelial Cells - UA 0-5 SEEN /hpf (0-5); White Blood Cells 0-5 SEEN /hpf (0-5)
[2017-11-16 14:05] LABS: Prothrombin Time (Protime)PT. 22.6 SECONDS (11.7-14.9)
[2017-11-18 10:57] VITALS: BMI 38.0
[2017-11-19 11:11] LABS: Prothrombin Time Fingerstick 13.3 SEC (11.9-14.4)
[2017-11-19 11:23] LABS: Hemoglobin 13.1 g/dl (13.0-16.5); Mean Corp Hgb Conc 34.5 g/gl (32-36); Mean Corpuscular Hgb 29.9 pg (27.0-32.0); Mean Corpuscular Volume 86.8 fL (80-94); Mean Platelet Vol. 9.5 fl (6.2-12.0); Platelet Count 160 K/mm3 (150-450); RBC Distribution Width CV 14.4 % (11.6-14.6); RBC Distribution Width SD 44.5 fl (35.1-43.9); Red Blood Count 4.38 M/mm3 (4.6-6.2); White Blood Count 5.5 K/mm3 (4.4-11.0)
[2017-11-19 11:24] LABS: Scan Indicated on CBC? Y/N NO
[2017-11-19 11:31] LABS: International Normalized Ratio 1.4; Prothrombin Time (Protime)PT. 16.8 SECONDS (11.7-14.9)
[2017-11-19 11:46] LABS: Anion Gap 6 (5-15); BUN 15 mg/dL (7-18); BUN/Creat Ratio 13.8 RATIO (10-20); Calcium,Total 8.5 mg/dL (8.5-10.1); Chloride 108 mmol/L (98-107); Creatinine, Serum 1.09 mg/dL (0.70-1.30); EST Glomerular Filtration Rate 71 mL/min (>60); Est Glom Filt Rate - Afr Amer 86 mL/min (>60); Estimated Creatinine Clearance 59.27 ml/min; Glucose 132 mg/dL (74-106); Potassium 4.2 mmol/L (3.5-5.1); Sodium Level 143 mmol/L (136-145)
--- NOTE | 2017-11-19 13:53 | PCM.OP.BLANK ---
Operative Report Date of Procedure: 11/19/17 Preoperative diagnosis is device at end of life for normal battery depletion. Postoperative diagnosis same as above. After informed consent and IV antibiotics the patient was brought to the [place] catheterization laboratory and the skin over the device was prepped and draped in the usual sterile manner. Intermittent boluses of Versed, fentanyl and propofol were used for sedation and analgesia as well as 1% subcutaneous lidocaine. An incision was made over the pre-existing device. Using blunt and Bovie dissection the pocket was opened and the device was removed. Careful attention was paid not to injure the pre-existing leads. The leads were removed from the device header and they were interrogated. There is normal lead function. Hemostasis was obtained. The pocket was flushed with antibiotic solution. The sponge and needle count were correct. The new device was brought to the field. The leads were placed in the appropriate position in the header and secured by the set screw. The leads and the device were then placed in the pocket. The pocket was closed with a deep layer of running 2-0 Vicryl, a superficial layer of running 4-0 Vicryl, skin with Steri-Strips which were covered with a rolled 4 x 4 and Tegaderm. Patient left the room with the device programmed to proper parameters and there were no complications. The device is a single chamber ICD. All lead parameters were tested and found to be functionally normal. Lead and device serial and model numbers are available in the chart documents provided by the device company wireless sales representative procedure summary.
[2017-11-19 14:36] LABS: Bedside Glucose 123 mg/dL (70-110)
== END 2017-11-19 15:19 | disposition home or self-care (01) ==
LOC: CLSP 10:54
PROVIDERS: Internal Medicine Cardiovascular Disease; Physician Assistant Medical; Family Provider Family Medicine; PCP Family Medicine; Visit Provider Internal Medicine Cardiovascular Disease
DX: Z45.010 Encounter for checking and testing of cardiac pacemaker pulse generator [battery] (principal); I25.10 Atherosclerotic heart disease of native coronary artery without angina pectoris; I25.5 Ischemic cardiomyopathy; I49.9 Cardiac arrhythmia, unspecified; I25.2 Old myocardial infarction; E78.5 Hyperlipidemia, unspecified; I07.1 Rheumatic tricuspid insufficiency; E11.9 Type 2 diabetes mellitus without complications; E66.9 Obesity, unspecified; Z68.38 Body mass index [BMI] 38.0-38.9, adult; Z86.718 Personal history of other venous thrombosis and embolism; Z79.4 Long term (current) use of insulin; Z79.02 Long term (current) use of antithrombotics/antiplatelets; Z79.01 Long term (current) use of anticoagulants; Z79.899 Other long term (current) drug therapy; Z00.6 Encounter for examination for normal comparison and control in clinical research program
CPT/HCPCS: 33262; 36415; 36416; 80048; 81001; 82962; 83880; 85027; 85610; 93641; 99152; 99153; J7040; J7050

== ENCOUNTER 2017-12-21 08:10 | Day surgery (SDC) | payer MEDICARE, OTHER, SELFPAY ==
[2017-11-06 10:25] VITALS: BMI 37.2
[2017-12-21] VITALS (7 sets, daily range): BP systolic 84–120; BP diastolic 44–73; PULSE 58–61; RESP 16; TEMP 36.3–36.8; O2SAT 95–99; BMI 38.0
--- NOTE | 2017-12-21 | GASB_PTH ---
PATIENT: Tim LONG LOC: EN U#:[id number] AGE/SX: 72/M ROOM: RE12/21/[address]: Dr. Ramiro Anthony MD : 1945 BED: DIS: 12/21/2017 SPEC #: [id number] RECD: 12/21/17 11:49 STATUS: JOSHUA KRISS #: [id number] SUSHIL: 12/21/17 00:[address]: Ramiro Anthony DEPT: SURGICAL PATHOLOGY RECD BY: Barry Weir ENTERED: 12/21/17 11:49 SP TYPE: Gastric Bx CHAR DR: Dr. Gilbert Keyes III, MD Tissues: A - Gastric mucous membrane B - Cecum, NOS Procedures: Surgery Specimen Level IV HEADER OPERATION: [place] [place] DIAGNOSIS: Epigastric pain, diarrhea, abnormal CT scan, LLQ abdomen pain TISSUE SUBMITTED: A - Antral biopsy for histo and H. pylori, B - Cecal polyp biopsy MICROSCOPIC DIAGNOSIS A. Gastric antrum, biopsy: Mild chronic gastritis. B. Cecal polyp, biopsy: Fragments of early tubular adenoma. AM:mariya 12/22/17 COMMENT A. The results of immunohistochemistry for Helicobacter pylori will be reported separately ([id number]). MICROSCOPIC DESCRIPTION Slides are reviewed. GROSS DESCRIPTION A - Received in fixative is one container labeled with the patient's name and designated antral biopsy. The specimen consists of one irregular fragment of light ho soft tissue that measures 0.4 x 0.3 x 0.1 cm. The specimen is totally submitted in one cassette. B - Received in fixative is one container labeled with the patient's name and designated cecal polyp biopsy. The specimen consists of multiple irregular fragments of light ho soft tissue that in aggregate measure 1 x 0.3 x 0.1 cm. The specimen is totally submitted in one cassette. / SJ:mariya 12/21/17 TC:3 CPT: 42384 x2
--- NOTE | 2017-12-21 | IMM_PTH ---
PATIENT: Tim LONG LOC: EN U#:[id number] AGE/SX: 72/M ROOM: RE12/21/[address]: Dr. Ramiro Anthony MD : 1945 BED: DIS: 12/21/2017 SPEC #: [id number] RECD: 12/21/17 11:56 STATUS: JOSHUA RERuth #: [id number] SUSHIL: 12/21/17 00:[address]: Ramiro Anthony DEPT: IMMUNOHISTOCHEMISTRY RECD BY: Aracelis Alanis ENTERED: 12/21/17 11:56 SP TYPE: IMMUNO OTHR DR: Dr. Gilbert Keyes III, MD Tissues: A - Stomach, NOS Procedures: H Pylori (initial) PHYSICIAN & INSTITUTION [place] [id number] SPECIMEN INFORMATION: Tissue Source: A - Antral biopsy Clinical Info: Epigastric pain, diarrhea, abnormal CT scan, [facility] abdomen pain Specimen Number: [id number] CPT code: 83746 METHODOLOGY: Deparaffinized sections of prefer/formalin-fixed tissue or PAP/DQ stained slides are incubated with monoclonal/polyclonal antibodies/oligonucleotide probes. Localization is made via biotin free immunoperoxidase method. Appropriate controls are performed and reacted as expected. Results on target cell population are indicated in the following table: RESULTS: ANTIBODY / CLONE RESULT Block A H Pylori (polyclonal) negative These tests were developed and their performance characteristics determined by [facility]. They may not have been cleared or approved by the U.S. Food and Drug Administration. The FDA has determined that such clearance or approval is not necessary. INTERPRETATION: A. Antral biopsy: Negative for Helicobacter pylori organisms. AM:mariya 12/23/17
[2017-12-21 08:35] LABS: Prothrombin Time Fingerstick 12.8 SEC (11.9-14.4)
[2017-12-21 08:50] LABS: Bedside Glucose 173 mg/dL (70-110)
--- NOTE | 2017-12-21 09:48 | PCM.HP.STD ---
Problem List (1) Epigastric pain Status: Acute (2) Diarrhea, unspecified Status: Acute Qualifiers: Diarrhea type: unspecified type Qualified Code(s): R19.7 - Diarrhea, unspecified (3) Abnormal CT scan, colon Status: Acute (4) Left lower quadrant pain Status: Acute History of Present Illness Date of Admission: 12/21/17 LOVELY LONG, is a 72 M who presents to the office today for endoscopic evaluation. Geeta Castro is consult to me for evaluation and a change in the patient's bowel habits. On 08/25/2017 patient had a CAT scan of his abdomen and pelvis which showed in the descending and sigmoid colon and area of colitis versus diverticulitis. Patient has been noticing that he has had multiple episodes of diarrhea. Many of these have been bright red in nature. This is been going on for about the last 3 months. In addition the patient has been experiencing worsening reflux and epigastric abdominal pain. And was actually seen in the emergency department 3 weeks ago for this. Patient's endoscopy history has been having a colonoscopy by Dr. Hall in January 2009. He was noted to have some small internal hemorrhoids and some diverticulosis as well as 2 small polyps which were removed one at the splenic flexure and one in the mid rectum. His last esophagogastroduodenoscopy was done by Dr. Alex and was in April 2015. He was noted to have a short segments of Petit's esophagus and otherwise was normal His diarrhea is loose in consistency brown in color no foul odor is noted. He has not tried any [id number] remedies his discomfort has improved since he was last seen in the emergency department. And he is currently being scheduled to have a pacemaker change this coming week. 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) 1990, 1992, 06/1997; Cutting balloon, PTCA/stent of ostium of proximal lateral CX 11/22/02; LHC, PTCA/stent to proximal OM 01/2008;LHC 06/20/2011; FFR and IVUS 06/30/2011 @ [facility]; [facility] 12/15/14 w/tsfer to [facility] for PTCA and LEANNA to in-tent restenosis of proximal OM; [facility] 02/07/2015; [facility] 02/15/2016: [facility] w/FFR of LAD, DX, CX 05/30/2016 Stented coronary artery (Chronic) 1990, 1992, 06/1997; Cutting balloon, PTCA/stent of ostium of proximal lateral CX 11/22/02; [facility], PTCA/stent to proximal OM 01/2008;[facility] 06/20/2011; FFR and IVUS 06/30/2011 @ [facility]; [facility] 12/15/14 w/tsfer to [facility] for PTCA and LEANNA to in-tent restenosis of proximal OM; [facility] 02/07/2015; [facility] 02/15/2016: [facility] w/FFR of LAD, DX, CX 05/30/2016 History of left heart catheterization (Chronic) 1990, 1992, 06/1997; Cutting balloon, PTCA/stent of ostium of proximal lateral CX 11/22/02; [facility], PTCA/stent to proximal OM 01/2008;[facility] 06/20/2011; FFR and IVUS 06/30/2011 @ [facility]; [facility] 12/15/14 w/tsfer to [facility] for PTCA and LEANNA to in-tent restenosis of proximal OM; [facility] 02/07/2015; [facility] 02/15/2016: [facility] w/FFR of LAD, DX, CX 05/30/2016 Nonrheumatic tricuspid (valve) insufficiency (Chronic) Per echo 12/04/2014: Moderate(2+), RVSP 36mmhg ICD (implantable cardioverter-defibrillator) in place (Chronic) 11/23/[address] Elmer Duong at [facility] Ischemic cardiomyopathy (Chronic) EF 40% per echo 12/04/2014 Type II diabetes mellitus (Chronic) History of DVT (deep vein thrombosis) (Chronic) Supraventricular arrhythmia (Chronic) Ventricular arrhythmia (Chronic) Obesity (BMI 30-39.9) (Chronic) Hypertension (Chronic) Medical History: Medical History (Last Reviewed 12/21/17 @ 09:49 by Ramiro Anthony MD) ASHD (arteriosclerotic heart disease) (Chronic) I25.10 Hyperlipidemia (Chronic) E78.5 History of non-ST elevation myocardial infarction (NSTEMI) (Chronic) I25.2 Atherosclerotic heart disease of mary[place] ig[place] coronary artery with other forms of angina pectoris (Chronic) I25.118 1990, 1992, 06/1997; Cutting balloon, PTCA/stent of ostium of proximal lateral CX 11/22/02; [facility], PTCA/stent to proximal OM 01/2008;[facility] 06/20/2011; FFR and IVUS 06/30/2011 @ [facility]; [facility] 12/15/14 w/tsfer to [facility] for PTCA and LEANNA to in-tent restenosis of proximal OM; [facility] 02/07/2015; [facility] 02/15/2016: [facility] w/FFR of LAD, DX, CX 05/30/2016 Nonrheumatic tricuspid (valve) insufficiency (Chronic) I36.1 Per echo 12/04/2014: Moderate(2+), RVSP 36mmhg Ischemic cardiomyopathy (Chronic) I25.5 EF 40% per echo 12/04/2014 Type II diabetes mellitus (Chronic) E11.9 History of DVT (deep vein thrombosis) (Chronic) Z86.718 Supraventricular arrhythmia (Chronic) I49.9 Ventricular arrhythmia (Chronic) I49.9 Obesity (BMI 30-39.9) (Chronic) E66.9 Allergies ceftriaxone sodium [From Rocephin] Allergy (Verified 12/18/17 09:51) Rash milk Adverse Reaction (Verified 12/18/17 09:51) Diarrhea morphine Adverse Reaction (Verified 12/18/17 09:51) hallucinations Home Medications: Ambulatory Orders Medication Instructions Recorded Clopidogrel Bisulfate [Plavix] 75 mg PO DAILY 12/04/14 Insulin NPH Human [Humulin N Pen] 32 units SC DAILY 12/04/14 Furosemide [Lasix] 40 mg PO BID 12/14/14 Pantoprazole Sodium [Protonix] 40 mg PO DAILY 02/02/15 Fenofibrate [Tricor] 145 mg PO DAILY 02/14/16 Nitroglycerin [Nitrostat] 0.4 mg SUBLINGUAL Q5M PRN #0 tab 05/31/16 gabapentin 600 mg tablet 300 mg PO TID 07/03/17 warfarin 5 mg tablet 10 mg PO MOTUWE 07/03/17 warfarin 7.5 mg tablet 6 mg PO SUTHFRSA 07/03/17 Isosorbide Mononitrate [Isosorbide 60 mg PO DAILY 07/06/17 Mononitrate ER] Ranolazine [Ranexa] 1,000 mg PO BID 07/06/17 Insulin NPH Human Isophane 32 units SQ QHS #0 07/07/17 [Humulin N Vial] Carvedilol [Coreg] 6.25 mg PO BID 08/25/17 Colestipol Tablet [Colestid Tablet] 1 gm PO BID 08/25/17 Insulin Lispro [Humalog] 20 unit SQ TIDCM 08/25/17 Lisinopril [Zestril] 20 mg PO DAILY 08/25/17 Rosuvastatin Calcium [Crestor] 40 mg PO QHS 08/25/17 amlodipine 5 mg tablet 5 mg PO DAILY tab 11/17/17 amiodarone 200 mg tablet 200 mg PO DAILY #90 tab 11/19/17 spironolactone 25 mg tablet 25 mg PO QDAY #90 tab 11/23/17 Aspirin [Aspirin EC] 81 mg PO DAILY 12/18/17 Surgical History: Surgical History (Last Reviewed 12/21/17 @ 09:49 by Ramiro Anthony MD) Stented coronary artery (Chronic) Z95.5 1990, 1992, 06/1997; Cutting balloon, PTCA/stent of ostium of proximal lateral CX 11/22/02; [facility], PTCA/stent to proximal OM 01/2008;[facility] 06/20/2011; FFR and IVUS 06/30/2011 @ [facility]; [facility] 12/15/14 w/tsfer to [facility] for PTCA and LEANNA to in-tent restenosis of proximal OM; [facility] 02/07/2015; [facility] 02/15/2016: [facility] w/FFR of LAD, DX, CX 05/30/2016 History of left heart catheterization (Chronic) Z98.890 1990, 1992, 06/1997; Cutting balloon, PTCA/stent of ostium of proximal lateral CX 11/22/02; [facility], PTCA/stent to proximal OM 01/2008;[facility] 06/20/2011; FFR and IVUS 06/30/2011 @ [facility]; [facility] 12/15/14 w/tsfer to [facility] for PTCA and LEANNA to in-tent restenosis of proximal OM; [facility] 02/07/2015; [facility] 02/15/2016: [facility] w/FFR of LAD, DX, CX 05/30/2016 ICD (implantable cardioverter-defibrillator) in place (Chronic) Z95.810 11/23/[address] Elmer Duong at [facility] Surgical History: - Psychiatric History: No pertinent psych hx Smoking Status: Never smoker - *Family History Maternal Family History: Family History (Last Reviewed 11/23/17 @ 09:08 by Ramiro Anthony MD) Father Prostate cancer Mother CVA (cerebral vascular accident) Sister Congestive heart failure Diabetes Hypertension Hyperlipidemia Atrial fibrillation CAD (coronary artery disease) Cardiac defibrillator in situ Sister Breast cancer Sister Breast cancer Brother CAD (coronary artery disease) Myocardial infarction Diabetes Brother Diabetes Brother COPD (chronic obstructive pulmonary disease) Sister Alive and well History Items: Stroke - CVA, age 80. Paternal Family History: Family History (Last Reviewed 11/23/17 @ 09:08 by Ramiro Anthony MD) Father Prostate cancer Mother CVA (cerebral vascular accident) Sister Congestive heart failure Diabetes Hypertension Hyperlipidemia Atrial fibrillation CAD (coronary artery disease) Cardiac defibrillator in situ Sister Breast cancer Sister Breast cancer Brother CAD (coronary artery disease) Myocardial infarction Diabetes Brother Diabetes Brother COPD (chronic obstructive pulmonary disease) Sister Alive and well History Items: Cancer - Prostate CA, 78 y/o. Sibling Family History: Family History (Last Reviewed 11/23/17 @ 09:08 by Ramiro Anthony MD) Father Prostate cancer Mother CVA (cerebral vascular accident) Sister Congestive heart failure Diabetes Hypertension Hyperlipidemia Atrial fibrillation CAD (coronary artery disease) Cardiac defibrillator in situ Sister Breast cancer Sister Breast cancer Brother CAD (coronary artery disease) Myocardial infarction Diabetes Brother Diabetes Brother COPD (chronic obstructive pulmonary disease) Sister Alive and well History Items: Diabetes Review of Systems Cardiovascular: Denies: Chest Pain, Chest Pressure, Chest Tightness, Palpitations Respiratory: Denies: Cough, Hemoptysis, Shortness of breath at rest, Shortness of breath upon exertion, Wheezing Gastrointestinal: Reports: Abdominal Pain VTE Information - Inpt Only VTE Present on Admission: No VTE Mechan Device Prophylaxis: None VTE Pharm Prophylaxis ordered?: No Reason prophylaxis not ordered:: Treatment Not Indicated Patient Problems: Active and Suspected Problems (Last Reviewed 11/23/17 @ 09:08 by Ramiro Anthony MD) Epigastric pain (Acute) Diarrhea, unspecified (Acute) Abnormal CT scan, colon (Acute) Left lower quadrant pain (Acute) - Physical Exam General: Alert, Oriented x3 Lungs: Clear to auscultation Cardiovascular: Regular rate, Regular Rhythm, No murmurs Abdomen: Bowel Sounds Present, Soft, Non Tender, Non-Distended, Obese Vital Signs Temp Pulse Resp BP Pulse Ox 98.2 F 58 L 16 120/73 97 12/21/17 08:33 12/21/17 08:33 12/21/17 08:33 12/21/17 08:33 12/21/17 08:33 Oxygen Delivery Method Room Air Weight: 250 lb 0.067 oz Body Mass Index (BMI) 38.0 Finger Stick Blood Glucose 180 Laboratory Tests Past 24 Hrs 12/21/17 08:30 POC PT 12.8 INR 1.10 POC Glucose 12/21/17 08:29 POC Glucose 173 H Assessment/Plan All Active Problems (Last Reviewed 11/23/17 @ 09:08 by Ramiro Anthony MD) Epigastric pain (Acute) Diarrhea, unspecified (Acute) Abnormal CT scan, colon (Acute) Left lower quadrant pain (Acute) Hypertensive crisis (Acute) Non-STEMI (non-ST elevated myocardial infarction) (Resolved) Unstable angina (Resolved) I will be to perform an upper and lower endoscopy on the patient.
--- NOTE | 2017-12-21 09:56 | OP.ENDO_ITS ---
Patient Name: Topher Devi Procedure Date: 12/21/2017 9:16 AM Date of : 1945 Age: 72 Procedure: Upper GI endoscopy Indications: Epigastric abdominal pain, Dysphagia, Follow-up of Petit's esophagus Providers: Ramiro Anthony MD Referring MD: Ramiro Anthony MD Medicines: See the Anesthesia note for documentation of the administered medications Complications: No immediate complications. Procedure: Pre-Anesthesia Assessment: - Prior to the procedure, a History and Physical was performed, and patient medications and allergies were reviewed. The patient's tolerance of previous anesthesia was also reviewed. The risks and benefits of the procedure and the sedation options and risks were discussed with the patient. All questions were answered, and informed consent was obtained. Prior Anticoagulants: The patient has taken Coumadin (warfarin), last dose was 7 days prior to procedure. ASA Grade Assessment: III - A patient with severe systemic disease. After reviewing the risks and benefits, the patient was deemed in satisfactory condition to undergo the procedure. After obtaining informed consent, the endoscope was passed under direct vision. Throughout the procedure, the patient's blood pressure, pulse, and oxygen saturations were monitored continuously. The gastroscope was introduced through the mouth, and advanced to the second part of duodenum. The upper GI endoscopy was accomplished without difficulty. The patient tolerated the procedure well. Scope In: 9:26:06 AM Scope Out: 9:28:57 AM Total Procedure Duration Time 0 hours 2 minutes 51 seconds Findings: The examined duodenum was normal. No biopsies or other specimens were collected for this exam. Localized minimal inflammation characterized by erythema was found in the prepyloric region of the stomach. Biopsies were taken with a cold forceps for Helicobacter pylori testing. A small hiatal hernia was present. No biopsies or other specimens were collected for this exam. Impression: - Normal examined duodenum. No specimens collected. - Gastritis. Biopsied. - Small hiatal hernia. No specimens collected. Recommendation: - Discharge patient to home. - Resume previous diet. - Continue present medications. - Await pathology results. - Repeat upper endoscopy in 3 years for surveillance. - Return to my office in 1 week. Procedure Code(s): --- Professional --- 92063, Esophagogastroduodenoscopy, flexible, transoral; with biopsy, single or multiple Diagnosis Code(s): --- Professional --- K22.70, Petit's esophagus without dysplasia K29.70, Gastritis, unspecified, without bleeding K44.9, Diaphragmatic hernia without obstruction or gangrene R10.13, Epigastric pain R13.10, Dysphagia, unspecified CPT copyright 2017 [employer]. All rights reserved. The codes documented in this report are preliminary and upon bioinformaticist review may be revised to meet current compliance requirements. MD Ramiro Lees MD 12/21/2017 9:55:29 AM This report has been signed electronically. Number of Addenda: 0 Note Initiated On: 12/21/2017 9:16 AM
--- NOTE | 2017-12-21 10:02 | OP.ENDO_ITS ---
Patient Name: Topher Devi Procedure Date: 12/21/2017 9:31 AM Date of : 1945 Age: 72 Procedure: Colonoscopy Indications: Abdominal pain in the left lower quadrant, Clinically significant diarrhea of unexplained origin, Abnormal CT of the GI tract Providers: Ramiro Anthony MD Referring MD: Ramiro Anthony MD Medicines: See the Anesthesia note for documentation of the administered medications Patient Profile: Last Colonoscopy: 9 years ago. Complications: No immediate complications. Procedure: Pre-Anesthesia Assessment: - Prior to the procedure, a History and Physical was performed, and patient medications and allergies were reviewed. The patient's tolerance of previous anesthesia was also reviewed. The risks and benefits of the procedure and the sedation options and risks were discussed with the patient. All questions were answered, and informed consent was obtained. Prior Anticoagulants: The patient has taken Coumadin (warfarin), last dose was 7 days prior to procedure. ASA Grade Assessment: III - A patient with severe systemic disease. After reviewing the risks and benefits, the patient was deemed in satisfactory condition to undergo the procedure. - Prior to the procedure, a History and Physical was performed, and patient medications and allergies were reviewed. The patient's tolerance of previous anesthesia was also reviewed. The risks and benefits of the procedure and the sedation options and risks were discussed with the patient. All questions were answered, and informed consent was obtained. Prior Anticoagulants: The patient has taken Coumadin (warfarin), last dose was 7 days prior to procedure. ASA Grade Assessment: III - A patient with severe systemic disease. After reviewing the risks and benefits, the patient was deemed in satisfactory condition to undergo the procedure. After I obtained informed consent, the scope was passed under direct vision. Throughout the procedure, the patient's blood pressure, pulse, and oxygen saturations were monitored continuously. The colonoscope was introduced through the anus and advanced to the cecum, identified by appendiceal orifice and ileocecal valve. The colonoscopy was performed without difficulty. The patient tolerated the procedure well. The quality of the bowel preparation was adequate to identify polyps 6 mm and larger in size. Scope In: 9:32:04 AM Scope Withdrawal Time 0 hours 8 minutes 37 seconds Scope Out: 9:44:48 AM Total Procedure Duration Time 0 hours 12 minutes 44 seconds Findings: A 4 mm polyp was found in the cecum. The polyp was sessile. The polyp was removed with a jumbo cold forceps. Resection and retrieval were complete. Non-bleeding internal hemorrhoids were found during retroflexion. The hemorrhoids were small. Multiple small and large-mouthed diverticula were found in the sigmoid colon. The exam was otherwise without abnormality. The mucosa look normal throught entire colon. Impression: - One 4 mm polyp in the cecum, removed with a jumbo cold forceps. Resected and retrieved. - Non-bleeding internal hemorrhoids. - Diverticulosis in the sigmoid colon. - The examination was otherwise normal. Recommendation: - Discharge patient to home. - Resume previous diet. - Continue present medications. - Await pathology results. - Repeat colonoscopy in 3 years for surveillance. - Return to my office in 1 week. Procedure Code(s): --- Professional --- 12723, Colonoscopy, flexible; with biopsy, single or multiple Diagnosis Code(s): --- Professional --- D12.0, Benign neoplasm of cecum K64.8, Other hemorrhoids R10.32, Left lower quadrant pain R19.7, Diarrhea, unspecified K57.30, Diverticulosis of large intestine without perforation or abscess without bleeding R93.3, Abnormal findings on diagnostic imaging of other parts of digestive tract CPT copyright 2017 [employer]. All rights reserved. The codes documented in this report are preliminary and upon oil pipeline operator review may be revised to meet current compliance requirements. MD Ramiro Lees MD 12/21/2017 10:01:32 AM This report has been signed electronically. Number of Addenda: 0 Note Initiated On: 12/21/2017 9:31 AM
== END 2017-12-21 10:39 | disposition home or self-care (01) ==
LOC: EN 08:11 → AC 08:12
PROVIDERS: Family Provider Family Medicine; PCP Family Medicine; Visit Provider Surgery
PROC: 0DJD8ZZ Inspection of Lower Intestinal Tract, Via Natural or Artificial Opening Endoscopic (ICD-10-PCS; CPT 45378; principal; 2017-12-21 09:25)
DX: K22.70 Barrett's esophagus without dysplasia (principal); K29.50 Unspecified chronic gastritis without bleeding; K44.9 Diaphragmatic hernia without obstruction or gangrene; D12.0 Benign neoplasm of cecum; K64.8 Other hemorrhoids; K57.30 Diverticulosis of large intestine without perforation or abscess without bleeding; I25.118 Atherosclerotic heart disease of native coronary artery with other forms of angina pectoris; I25.2 Old myocardial infarction; I25.5 Ischemic cardiomyopathy; E11.9 Type 2 diabetes mellitus without complications; E78.00 Pure hypercholesterolemia, unspecified; E66.9 Obesity, unspecified; I36.1 Nonrheumatic tricuspid (valve) insufficiency; I11.0 Hypertensive heart disease with heart failure; I50.9 Heart failure, unspecified; G47.30 Sleep apnea, unspecified; F32.9 Major depressive disorder, single episode, unspecified; K21.9 Gastro-esophageal reflux disease without esophagitis; M06.9 Rheumatoid arthritis, unspecified; Z86.718 Personal history of other venous thrombosis and embolism; Z87.19 Personal history of other diseases of the digestive system; Z95.5 Presence of coronary angioplasty implant and graft; Z95.810 Presence of automatic (implantable) cardiac defibrillator; Z79.02 Long term (current) use of antithrombotics/antiplatelets; Z79.01 Long term (current) use of anticoagulants; Z79.4 Long term (current) use of insulin; Z79.82 Long term (current) use of aspirin; Z79.899 Other long term (current) drug therapy
CPT/HCPCS: 43239; 45380; 36416; 82962; 85610; 88305; 88342; J7120; J1610

== ENCOUNTER → 2017-12-22 09:37 | Outpatient (CLI) | payer MEDICARE, OTHER, SELFPAY ==
[2017-11-06 10:25] VITALS: BMI 37.2
[2017-12-22 11:27] LABS: PSA,Total - Annual Screen 3.24 ng/mL (0.00-4.00)
== END ==
PROVIDERS: Family Provider Family Medicine; PCP Family Medicine; Referring Provider Urology; Visit Provider Urology
DX: Z12.5 Encounter for screening for malignant neoplasm of prostate (principal)
CPT/HCPCS: 36415; 84153; G0103

== ENCOUNTER 2018-03-27 08:49 | Emergency (ER) | payer MEDICARE, OTHER, SELFPAY ==
[2017-11-06 10:25] VITALS: BMI 37.2
[2018-03-27 08:50] VITALS: BP 155/95; PULSE 70; RESP 17; TEMP 36.7; O2SAT 100; BMI 40.1
--- NOTE | 2018-03-27 08:58 | RAD_ITS ---
STUDY: X-RAY CHEST REASON FOR EXAM: Male, 72 years old. Respiratory issues. TECHNIQUE: Frontal and lateral views of the chest. COMPARISON: 11/15/2017. FINDINGS: The lungs are clear and expanded. There is no demonstrated pleural abnormality. Normal size heart. Pacemaker lead terminates in the right ventricle. Normal mediastinum and eleuterio. Normal visualized pulmonary arteries. Normal visualized aortic arch and descending thoracic aorta. There are diffuse degenerative changes of the visualized thoracic spine. Normal visualized ribs, clavicles, and shoulders. There is no demonstrated abnormality of the visualized soft tissue structures of the upper abdomen. RAD/Chest PA and Lateral IMPRESSION: No evidence for acute chest disease. Electronically Signed: Sunil Segura MD at 10:19 EST , Service support ,
--- NOTE | 2018-03-27 08:58 | EKG12_ITS ---
Test Reason : SOB Blood Pressure : / mmHG Vent. Rate : 067 BPM Atrial Rate : 067 BPM P-R Int : 202 ms QRS Dur : 160 ms QT Int : 448 ms P-R-T Axes : 024 017 044 degrees QTc Int : 473 ms Sinus rhythm with Premature atrial complexes Right bundle branch block Inferior infarct , age undetermined Abnormal ECG Confirmed by LONG SIMMONS, ARNIE ([id number]), food editor IRIS TUTTLE ([id number]) on 03/29/2018 12:38:42 PM Referred By: ARTEM/BERNA Confirmed By:ARNIE ALVES MD
--- NOTE | 2018-03-27 09:03 | ED.DCSUM_ITS ---
- ER Visit Summary Date of Service: 03/27/18 Chief Complaint: Cough, Flulike symptoms History of Present Illness: The patient is a 72 M with cough, sore throat, myalgias and arthralgias. Patient states for the past 4 or 5 days, he had the symptoms. States he just felt like he had a flu. The patient does have history of coronary vascular disease status post stents. He went to urgent care today and was sent over due to his comorbidities. He does not that he had fevers. He does admit to shortness of breath and cough with productive sputum. He denies chills but has had some myalgias. He does not smoke. He has no underlying history of lung disease. He is been compliant with his medications. He also admits to some increased urinary frequency. Physical Examination: Vital signs reviewed General: Well-nourished, well-developed Head: Normocephalic, atraumatic Eyes: Pupils equal and reactive, extraocular muscles intact Neck, supple, no lymphadenopathy Heart: Regular rate and rhythm Respiratory: No distress, diminished with crackles in the left base Abdomen: Soft, nontender, nondistended, no peritoneal signs Back: Nontender Extremities: Nontender, no edema, no cords Skin: Normal color no rash Neuro: Alert and oriented, no focal or lateralizing deficits Test Results: [] Emergency Department Course and Treatment: The patient has had no chest pain. He does have focal change in lung sounds in his left lower lobe. He was given a nebulized breathing treatment with improvement of his aeration. His influenza test was negative. His chest x-ray shows no evidence of volume overload or focal infiltrative process. Screening labs are unremarkable. His troponin is indeterminant, but in review of his records, he is always in this range. Again, he has had no chest pain or orthopnea. My suspicion is that this is likely infectious. He has had focal change in lung sounds with productive sputum. Although there is no definitive pneumonia, I was going to treat him with oral antibiotics to cover atypical respiratory infection. He is not hypoxic. He is not tachypneic. The patient is comfortable with this plan of care and will be discharged home. Treatment Plan: [] Disposition: Discharge Impression: Infectious bronchitis with bronchospasm This note was generated with [employer] software. It may contain incorrect words, spelling, and punctuation that were not noted in review of the chart prior to signing ED Disposition - Plan for ED Patient: Chief Complaint: Cold Sx Instructions: ED Upper Resp Infec Abx Tx Prescriptions: Benzonatate [Tessalon Perle] 200 mg PO TID PRN PRN #20 cap PRN Reason: Cough Doxycycline 100 mg PO BID #20 cap Referrals: Gilbert Keyes III, MD [Primary Care Provider] -
[2018-03-27 09:18] VITALS: PULSE 20; RESP 20
[2018-03-27] MEDS: Ipratropium/Albuterol Sulfate 3 ML AMPUL.NEB INHALATION (09:18)
[2018-03-27 09:28] VITALS: O2SAT 93
[2018-03-27 09:35] LABS: Absolute Lymphocyte Count 0.69 X10^3/ul (0.83-4.51); Absolute Neutrophil Count 2.6 X10^3/uL (2.0-7.7); Basophil# 0.03 X10^3/uL; Basophil% 0.8 % (0-1); Eosinophil# 0.15 X10^3/uL; Eosinophils% 3.8 % (0-5); Lymphocyte # 0.69 X10^3/ul (4.0); Lymphocyte % 17.5 % (19-41); Mean Corp Hgb Conc 34.2 g/gl (32-36); Mean Corpuscular Hgb 30.5 pg (27.0-32.0); Mean Corpuscular Volume 89.2 fL (80-94); Mean Platelet Vol. 9.4 fl (6.2-12.0); Monocyte# 0.49 X10^3/uL; Monocyte% 12.4 % (0-10); Neutrophil # 2.56 X10^3/uL (2.7-7.7); POSITIVE COUNT NO; POSITIVE DIFFERENTIAL NO; POSITIVE MORPHOLOGY NO; Platelet Count 117 K/mm3 (150-450); RBC Distribution Width CV 14.3 % (11.6-14.6); RBC Distribution Width SD 46.1 fl (35.1-43.9); Red Blood Count 4.26 M/mm3 (4.6-6.2); White Blood Count 3.9 K/mm3 (4.4-11.0)
[2018-03-27 09:53] VITALS: BP 135/84; PULSE 67; RESP 20; TEMP 36.9; O2SAT 94
[2018-03-27 09:53] LABS: ALB/GLOB Ratio 1.3 RATIO (0.9-2.4); AST(SGOT) 31 U/L (15-37); Alanine Aminotransfer ALT/SGPT 42 U/L (16-61); Albumin, Serum 4.1 g/dL (3.2-5.0); Alkaline Phosphatase 73 U/L (45-117); Anion Gap 7 (5-15); BUN 21 mg/dL (7-18); BUN/Creat Ratio 18.1 RATIO (10-20); Calcium,Total 8.3 mg/dL (8.5-10.1); Chloride 108 mmol/L (98-107); Creatinine, Serum 1.16 mg/dL (0.70-1.30); EST Glomerular Filtration Rate 66 mL/min (>60); Est Glom Filt Rate - Afr Amer 80 mL/min (>60); Estimated Creatinine Clearance 55.69 ml/min; Globulin 3.1 g/dL (2.2-4.2); Glucose 187 mg/dL (74-106); Potassium 4.1 mmol/L (3.5-5.1); Protein, Total 7.2 g/dL (6.4-8.2); Sodium Level 141 mmol/L (136-145)
[2018-03-27 09:59] LABS: BNP,B-Type NATRIURETIC PEPTIDE 60.6 pg/mL (0-100)
[2018-03-27 10:17] LABS: Lactic Acid 1.2 mmol/L (0.4-2.0)
[2018-03-27 10:34] VITALS: BP 129/82; PULSE 68; RESP 20; TEMP 37.1; O2SAT 93
[2018-03-27 10:35] VITALS: BP 129/82; PULSE 68; RESP 20; O2SAT 93
== END 2018-03-27 10:35 | disposition home or self-care (01) ==
PROVIDERS: Emergency Provider Emergency Medicine; Family Provider Family Medicine; PCP Family Medicine
DX: J40 Bronchitis, not specified as acute or chronic (principal); J98.01 Acute bronchospasm; R35.0 Frequency of micturition; R60.0 Localized edema; I45.10 Unspecified right bundle-branch block; I25.10 Atherosclerotic heart disease of native coronary artery without angina pectoris; E11.9 Type 2 diabetes mellitus without complications; I11.9 Hypertensive heart disease without heart failure; E78.00 Pure hypercholesterolemia, unspecified; Z95.5 Presence of coronary angioplasty implant and graft; Z79.82 Long term (current) use of aspirin; Z79.4 Long term (current) use of insulin; Z79.01 Long term (current) use of anticoagulants; Z79.02 Long term (current) use of antithrombotics/antiplatelets; Z79.899 Other long term (current) drug therapy; R06.02 Shortness of breath
CPT/HCPCS: 71046; 80053; 83605; 83880; 84484; 85025; 87804; 93005; 94640; 99284; A4216

== ENCOUNTER 2018-07-14 17:17 | Emergency (ER) | payer MEDICARE, OTHER, SELFPAY ==
[2017-11-06 10:25] VITALS: BMI 37.2
[2018-07-14 17:18] VITALS: BP 148/84; PULSE 71; RESP 17; TEMP 36.6; O2SAT 94; BMI 32.8
--- NOTE | 2018-07-14 18:21 | RAD_ITS ---
STUDY: X-RAY CHEST REASON FOR EXAM: Male, 72 years old. Chest pain. TECHNIQUE: Single AP portable view of the chest. COMPARISON: March 27, 2018 FINDINGS: Cardiac monitoring leads are present. Patient has left-sided intercardiac pacemaker. The lungs are expanded. There is mild elevation of the right hemidiaphragm. Bronchovascular markings are prominent in both lungs. There is no demonstrated pleural abnormality. There is borderline cardiomegaly. Normal mediastinum and eleuterio. There is prominence of the pulmonary hilar arteries without peripheral pulmonary vascular congestion. There is atherosclerotic calcification of the aortic arch with tortuosity. There are diffuse degenerative changes of the visualized thoracic spine. Normal visualized ribs, clavicles, and shoulders. There is no demonstrated abnormality of the visualized soft tissue structures of the upper abdomen. RAD/Chest 1 View (Portable) IMPRESSION: No radiographic evidence of acute cardiopulmonary disease. Electronically Signed: Gayle Holt MD at 18:53 EDT , Service support ,
--- NOTE | 2018-07-14 18:21 | EKG12_ITS ---
Test Reason : HYPOTENSION Blood Pressure : / mmHG Vent. Rate : 065 BPM Atrial Rate : 065 BPM P-R Int : 206 ms QRS Dur : 152 ms QT Int : 448 ms P-R-T Axes : 012 -08 004 degrees QTc Int : 465 ms Normal sinus rhythm Right bundle branch block Inferior infarct (cited on or before 22-JUN-1996), age undetermined Abnormal ECG Confirmed by LONG SIMMONS, ARNIE ([id number]), film editor supervisor SABINE ALVAREZ ([id number]) on 07/19/2018 10:17:11 AM Referred By: PAKO Confirmed By:ARNIE ALVES MD
[2018-07-14 18:33] VITALS: BP 147/90; PULSE 62; RESP 18; O2SAT 97
[2018-07-14 18:57] LABS: Absolute Lymphocyte Count 1.47 X10^3/ul (0.83-4.51); Absolute Neutrophil Count 4.5 X10^3/uL (2.0-7.7); Basophil# 0.05 X10^3/uL; Basophil% 0.7 % (0-1); Hematocrit 38.9 % (40-54); Hemoglobin 13.3 g/dl (13.0-16.5); Lymphocyte # 1.47 X10^3/ul (4.0); Lymphocyte % 21.9 % (19-41); Mean Corp Hgb Conc 34.2 g/gl (32-36); Mean Corpuscular Volume 87.6 fL (80-94); Monocyte# 0.45 X10^3/uL; Monocyte% 6.7 % (0-10); Neutrophil # 4.53 X10^3/uL (2.7-7.7); Neutrophil % 67.6 % (47-70); Platelet Count 158 K/mm3 (150-450); RBC Distribution Width CV 14.4 % (11.6-14.6); RBC Distribution Width SD 46.4 fl (35.1-43.9); Red Blood Count 4.44 M/mm3 (4.6-6.2); White Blood Count 6.7 K/mm3 (4.4-11.0)
[2018-07-14 19:04] LABS: POSITIVE COUNT NO; POSITIVE DIFFERENTIAL NO; POSITIVE MORPHOLOGY NO
[2018-07-14 19:11] LABS: Anion Gap 8 (5-15); BUN 39 mg/dL (7-18); BUN/Creat Ratio 22.9 RATIO (10-20); Calcium,Total 8.5 mg/dL (8.5-10.1); Chloride 101 mmol/L (98-107); EST Glomerular Filtration Rate 42 mL/min (>60); Est Glom Filt Rate - Afr Amer 51 mL/min (>60); Glucose 107 mg/dL (74-106); Sodium Level 137 mmol/L (136-145)
[2018-07-14 19:18] LABS: Lactic Acid 1.1 mmol/L (0.4-2.0)
[2018-07-14 19:19] LABS: Bacteria 0 SEEN /hpf (None Seen); Mucous, Urine 0 SEEN /hpf (<or=2+); Red Blood Cells-Urine 0 SEEN /hpf (0-5); Squamous Epithelial Cells - UA 0 SEEN /hpf (0-5)
[2018-07-14] MEDS: Aspirin 81 MG TAB.CHEW 324 MG PO (19:20)
[2018-07-14 19:24] LABS: Color, Urine Yellow (Yellow); Glucose, Dipstick Normal (Normal); Ketone-Dipstick Negative (Negative); Leukocyte Esterase-Dipstick 100 /ul (Negative); Nitrite-Dipstick Negative (Negative); Occult Blood-Urine 10 /ul (Negative); Protein-Dipstick Negative (Negative); Specific Gravity, Urine 1.015 (1.002-1.030); Urine Bilirubin Dipstick Negative (Negative); Urine Clarity Clear (Clear); Urine Urobilinogen Normal (Normal)
--- NOTE | 2018-07-14 19:29 | ED.VISSUMM ---
- ER Visit Summary Date of Service: 07/14/18 Chief Complaint: Blood pressure low History of Present Illness: The patient is a [address] Mcbride for a Dr. Gilbert Keyes III. He reports that 3:00 this afternoon he checked his blood pressure and his systolic blood pressure was 70. At 4:00 was 71. Patient reports that at that time he had no symptoms. Approximately 1 hour ago while he was at rest he had sided chest pain the last for a few seconds. It was a sharp pain was 910 at worst and is pain-free currently. He denies any chest pain with exertion. This was not accompanied by nausea, vomiting, or diaphoresis. Patient reports that he has chronic diarrhea 2-3 times a day. This is unchanged. No blood in stools. No abdominal pain. He had nausea for the past week. No vomiting. No fever or chills. She had dysuria for approximately 1 month. Physical Examination: Vitals: Stable. Afebrile. General: Well-nourished and well-developed. Head: Normocephalic atraumatic. Neck: Supple, no lymphadenopathy. No JVD. Nontender. Cardiovascular: Regular rate and rhythm. No murmurs. Respiratory: No respiratory distress. Clear to auscultation bilaterally. Abdominal: Soft, nontender, nondistended, normal bowel sounds. No guarding, rebound, or peritoneal signs. Back: Nontender. Extremities: Nontender, no edema. Skin: Normal color, no rash. Neurologic: Alert and oriented ?3. Cranial nerves II through XII are intact. Normal strength and sensation. Psych: Normal affect. Test Results: EKG is sinus at 65 with a right bundle branch block.'s unchanged from February 2018. Troponin 0 0.019. UA is negative. Chem-7 shows a glucose of 107, BUN of 39, creatinine 1.7. Baseline creatinine in 2018 was 1.06-1.43. CBC shows a hematocrit of 38.9. Chest x-ray shows chronic changes. Emergency Department Course and Treatment: Patient was given a 500 cc bolus of normal saline. He refused pain and nausea medications. He is resting comfortably. Treatment Plan: The patient was discussed with Dr. Perry. He asked that the patient's Lasix be cut from 40 twice a day to 40 once a day. Follow-up with Dr. Perry as previously scheduled. Return to the emergency department for any worsening symptoms. Disposition: To home in improved and stable condition. Impression: 1. Reported hypotension. 2. Dehydration. 3. Atypical chest pain. This note was generated with [employer] dictation software. It may contain incorrect words, spelling, and punctuation that were not noted in review of the chart prior to signing ED Disposition - Plan for ED Patient: Disposition: Home or Assisted Living Instructions: ED Dehydration Referrals: Gilbert Keyes III, MD [Primary Care Provider] - 1-2 Days if not improving Additional Instructions: Decrease your Lasix to 40 mg once a day. If you gain 2-3 pounds take an extra 40 mg of Lasix that day and then return to your dosing of 40 mg once a day.
[2018-07-14 20:04] LABS: White Blood Cells 0-5 SEEN /hpf (0-5)
[2018-07-14 20:35] VITALS: BP 152/90; PULSE 60; RESP 17; O2SAT 94
== END 2018-07-14 20:39 | disposition home or self-care (01) ==
PROVIDERS: Emergency Provider Emergency Medicine; Family Provider Family Medicine; PCP Family Medicine
DX: I95.9 Hypotension, unspecified (principal); E86.0 Dehydration; R07.89 Other chest pain; K52.9 Noninfective gastroenteritis and colitis, unspecified; R30.0 Dysuria; I45.10 Unspecified right bundle-branch block; R01.1 Cardiac murmur, unspecified; I25.10 Atherosclerotic heart disease of native coronary artery without angina pectoris; J44.9 Chronic obstructive pulmonary disease, unspecified; E11.9 Type 2 diabetes mellitus without complications; I10 Essential (primary) hypertension; E78.00 Pure hypercholesterolemia, unspecified; Z95.5 Presence of coronary angioplasty implant and graft; Z95.0 Presence of cardiac pacemaker; Z79.82 Long term (current) use of aspirin; Z79.02 Long term (current) use of antithrombotics/antiplatelets; Z79.4 Long term (current) use of insulin; Z79.01 Long term (current) use of anticoagulants; Z79.899 Other long term (current) drug therapy
CPT/HCPCS: 71045; 80048; 81001; 83605; 84484; 85025; 93005; 96360; 99285; J7030; J7040; A4216

== ENCOUNTER → 2018-08-06 | Outpatient (CLI) | payer MEDICARE, OTHER, SELFPAY ==
[2017-11-06 10:25] VITALS: BMI 37.2
[2018-07-14 17:18] VITALS: BMI 32.8
--- NOTE | 2018-08-06 13:09 | CT_ITS ---
STUDY: CT SOFT TISSUE NECK WITH CONTRAST REASON FOR EXAM: Male, 72 years old. LEFT NECK LUMP FELT BY PHYSICIAN -- PT DENIES ANY SYMPTOMS. RADIATION DOSAGE (If Supplied By Facility): CTDIvol = ( 25.17 ) mGy, DLP = ( 817.04 ) mGycm TECHNIQUE: The patient was scanned in a multi-detector CT scanner. High resolution transaxial imaging was performed following intravenous administration of 100CC IV Isovue 300. Sagittal and coronal images were reconstructed. Individualized dose optimization techniques were used for this CT. COMPARISON: None. FINDINGS: Normal bilateral parotid glands. Normal bilateral product management specialist spaces. Normal bilateral parapharyngeal spaces. Normal bilateral carotid spaces. Normal bilateral sublingual and submandibular glands and spaces. Normal visualized nasopharynx. Normal retropharyngeal space. Normal perivertebral space. Normal visualized bilateral faucial tonsils. The visualized tongue, tongue base and oropharynx are normal. The visualized cervical lymph nodes (levels I-) are within normal size limits, and maintain normal morphology. There is no demonstrated solid or cystic mass lesion. There is no abnormal contrast enhancement. Normal epiglottis, bilateral vallecula and hypopharynx. The pre-epiglottic and paraglottic adipose spaces are normal. Normal visualized bilateral piriform sinuses, aryepiglottic folds, vocal cords, and arytenoid-cricoid articulations. Normal subglottic trachea. Normal bilateral lobes of the thyroid gland. Normal visualized pulmonary apices. There is multilevel degenerative changes of the cervical spine. CT/Soft Tissue Neck WITH Contrast IMPRESSION: No masses or lymphadenopathy. Electronically Signed: Cleveland Ding MD at 12:53 EDT Tel , Service support ,
== END | disposition home or self-care (01) ==
LOC: CT 13:07
PROVIDERS: Family Provider Family Medicine; PCP Family Medicine; Referring Provider Otolaryngology Otolaryngology/Facial Plastic Surgery; Visit Provider Otolaryngology Otolaryngology/Facial Plastic Surgery
DX: R22.1 Localized swelling, mass and lump, neck (principal)
CPT/HCPCS: 70491; Q9967

== ENCOUNTER → 2018-08-17 | Outpatient (CLI) | payer MEDICARE, OTHER, SELFPAY ==
[2017-11-06 10:25] VITALS: BMI 37.2
== END | disposition home or self-care (01) ==
LOC: SL 08-20 15:46
PROVIDERS: Family Provider Family Medicine; PCP Family Medicine; Referring Provider Family Medicine; Visit Provider Family Medicine
DX: G47.33 Obstructive sleep apnea (adult) (pediatric) (principal)
CPT/HCPCS: 95811

== ENCOUNTER 2018-11-17 16:12 | Emergency (ER) | payer MEDICARE, OTHER, SELFPAY ==
[2017-11-06 10:25] VITALS: BMI 37.2
[2018-09-07 10:00] VITALS: BMI 39.9
[2018-11-17 16:14] VITALS: BP 133/84; PULSE 81; RESP 19; TEMP 36.9; O2SAT 98; BMI 38.5
--- NOTE | 2018-11-17 16:29 | EKG12_ITS ---
Test Reason : WEAKNESS Blood Pressure : / mmHG Vent. Rate : 068 BPM Atrial Rate : 068 BPM P-R Int : 186 ms QRS Dur : 146 ms QT Int : 438 ms P-R-T Axes : 010 -13 040 degrees QTc Int : 465 ms Normal sinus rhythm Right bundle branch block Inferior infarct (cited on or before 22-JUN-1996) Abnormal ECG Confirmed by KATH GARCIA ([id number]), sound editor STIVEN JACKSON ([id number]) on 11/22/2018 2:01:31 PM Referred By: SAGAR Confirmed By:KATH GARCIA
--- NOTE | 2018-11-17 16:31 | ED.VIS.GEN ---
History of Present Illness Chief Complaint: Weakness Detail of Chief Complaint: Defibrillator fired yesterday Informant: Patient, Significant Other, PCP Onset: Days - Generalized weakness, chronic dyspnea on exertion without exacerbation, chronic orthopnea chronic pedal edema and reports diaphoresis lightheadedness and mild shortness of breath before defibrillator fired yesterday walking outside his house. Context: Sudden Onset Timing: Continuous - To his chronic issues, Intermittent - With regards to lightheadedness, diaphoresis and firing of defibrillator Quality: Orthostatic symptoms Current Severity: - - At baseline Maximum Severity: Moderate Worsened by: Nothing Relieved by: Firing of AICD Associated Symptoms: Lightheadedness, possible diaphoresis, shortness of breath Narrative: Patient is an elderly male with multiple cardiac issues who presents because his defibrillator fired yesterday as he was walking down the driveway to get the mail. He reported shortness of breath and lightheadedness. He denied chest pain. He denies increased dyspnea, increased dyspnea on exertion or increased orthopnea for the past 2 weeks. He states his AICD was recently replaced. His gun barrel finisher Dr. Razo called prior to his arrival. Per note he complained of shortness of breath, lightheadedness and had a blood pressure 60/40. Prior similar symptoms: Yes Recent Illness/Hospitalization: No - Past Medical History (1) Atherosclerotic heart disease of [place] coronary artery with other forms of angina pectoris Status: Chronic Comment: ECS-Adjup-Dad Cx; PCI-Cutting Balloon Angioplasty of ISR-ostium of prox lat CX 11/22/02; PCI-stent to proximal OM 01/2008; PCI- HME-MEQ-Ghel OM 12/15/13;C w/FFR of LAD, D1, LCx 05/30/2016 (2) History of implantable cardiac defibrillator (ICD) Status: Chronic Comment: 11/23/2002, Generator change 2017 (3) History of non-ST elevation myocardial infarction (NSTEMI) Status: Chronic (4) Hyperlipidemia Status: Chronic (5) Ischemic cardiomyopathy Status: Chronic (6) Nonrheumatic tricuspid (valve) insufficiency Status: Chronic (7) Nonsustained ventricular tachycardia Status: Chronic (8) Paroxysmal atrial flutter Status: Chronic Past Medical History - Allergies and Home Meds Allergies/Adverse Reactions: Allergies ceftriaxone sodium [From Rocephin] Allergy (Verified 11/17/18 16:14) Rash milk Adverse Reaction (Verified 11/17/18 16:14) Diarrhea morphine Adverse Reaction (Verified 11/17/18 16:14) hallucinations Primary Care Physician: Gilbert Keyes III, MD [Primary Care Provider] - Prior records reviewed: Yes Surgical History: - Lives: Spouse/ Significant Other Smoking Status: Former smoker Alcohol: None Drugs: None - Family History Maternal Family History: Family History (Last Reviewed 09/07/18 @ 10:36 by Johan Perry MD) Father Prostate cancer Mother CVA (cerebral vascular accident) Sister Congestive heart failure Diabetes Hypertension Hyperlipidemia Atrial fibrillation CAD (coronary artery disease) Cardiac defibrillator in situ Sister Breast cancer Sister Breast cancer Brother CAD (coronary artery disease) Myocardial infarction Diabetes Brother Diabetes Brother COPD (chronic obstructive pulmonary disease) Sister Alive and well Family History: Reports: Stroke - CVA, age 80. Paternal Family History: Family History (Last Reviewed 09/07/18 @ 10:36 by Johan Perry MD) Father Prostate cancer Mother CVA (cerebral vascular accident) Sister Congestive heart failure Diabetes Hypertension Hyperlipidemia Atrial fibrillation CAD (coronary artery disease) Cardiac defibrillator in situ Sister Breast cancer Sister Breast cancer Brother CAD (coronary artery disease) Myocardial infarction Diabetes Brother Diabetes Brother COPD (chronic obstructive pulmonary disease) Sister Alive and well Family History: Reports: Cancer - Prostate CA, 78 y/o. Sibling Family History: Family History (Last Reviewed 09/07/18 @ 10:36 by Johan Perry MD) Father Prostate cancer Mother CVA (cerebral vascular accident) Sister Congestive heart failure Diabetes Hypertension Hyperlipidemia Atrial fibrillation CAD (coronary artery disease) Cardiac defibrillator in situ Sister Breast cancer Sister Breast cancer Brother CAD (coronary artery disease) Myocardial infarction Diabetes Brother Diabetes Brother COPD (chronic obstructive pulmonary disease) Sister Alive and well Family History: Reports: Diabetes Review of Systems General: Denies: Chills, Fever, Malaise, Subjective, Sweats Eyes: Denies: Visual changes - bilaterally, Blurred Vision - bilaterally ENT: Denies: Rhinorrhea, Sore throat Cardiovascular: Denies: Chest pain, Palpitations, Heart racing Respiratory: Reports: Dyspnea, Dyspnea on exertion, Orthopnea. Denies: Cough, Sputum, Paroxysmal nocturnal dyspnea, -, - Genitourinary: Denies: Dysuria, Hematuria, Frequency Musculoskeletal: Reports: Swelling - Chronic swelling of both lower extremities. Denies: Myalgias, Arthralgias, Neck pain, Back pain, Extremity Pain Skin: Reports: Rash - Venous stasis dermatitis of lower extremities. Denies: Wounds Neurological: Reports: Weakness. Denies: Headache, Parasthesia, Numbness Endocrine: Denies: Polyuria Hematologic: Reports: Easy bruising. Denies: Easy bleeding, Lymphadenopathy Physical Exam Vital Signs/Narrative: Vital Signs Temp Pulse Resp BP Pulse Ox 11/17/18 16:14 98.5 F 81 19 H 133/84 H 98 Inital Vital Signs reviewed: Yes General: Well nourished, Well developed, No Acute Distress Head: Normocephalic, Atraumatic Eyes: Perrl, EOMI ENT: Moist mucous membranes, No rhinorrhea Neck: Supple, Nontender Cardiovascular: Regular rate, Regular rhythm, No murmurs, Normal S1, Normal S2 Respiratory: No distress, CTA bilaterally, Chest nontender Abdomen: Soft, Nontender, Nondistended, Normal bowel sounds Back: Nontender, Normal Inspection Extremities: Nontender, Edema - 2+ with venous stasis dermatitis. Negative for: Calf Tenderness Skin: Normal color, No Trauma, Rash. Negative for: Cyanosis, Diaphoresis, Jaundice Neurological: Alert, Oriented x3, Cranial nerves II-XII grossly intact, Normal Strength, Normal Sensation Psychological: Normal affect, Normal Mood Diagnostic/Tx/Re-eval Laboratory Results 11/17/18 11/17/18 11/17/18 16:20 16:20 16:20 WBC 6.2 RBC 4.06 L Hgb 12.2 L Hct 36.5 L MCV 89.9 MCH 30.0 MCHC 33.4 RDW Std Deviation 46.0 H RDW Coeff of Galo 14.1 Plt Count 156 MPV 10.4 PT 22.9 H INR 2.0 Sodium 137 Potassium 4.3 Chloride 104 Carbon Dioxide 25.0 Anion Gap 8 BUN 53 H Creatinine 2.34 H Estim Creat Clear Calc 27.20 Est GFR (MDRD) Af Amer 35 L Est GFR (MDRD) Non-Af 29 L BUN/Creatinine Ratio 22.6 H Glucose 189 H Calcium 8.2 L Troponin I 0.022 Blood work is essentially unremarkable. Creatinine is elevated 2.34. Will review prior labs. Awaiting AICD interrogation. - EKG Initial EKG Interpretation: Sinus Rhythm - Trickle rate is 68. There is evidence of right bundle branch block. IA interval is 186 ms. QS duration 146 ms. QT duration 438 ms. There is artifact in lead II and III. Prior: Unchanged - Medical Decision Making AICD will be interrogated. EKG was obtained as well as appropriate blood work. Per [employer] rep there was no shocks and no events. Patient was in normal sinus rhythm. There were no inappropriate shocks. In light of this information patient will be discharged home to follow-up with Dr. Perry. ED Disposition - Plan for ED Patient: Disposition: Home or Assisted Living Diagnosis: Encounter for assessment of automatic implantable cardioverter-defibrillator (AICD), Generalized weakness, Dyspnea on effort, Lymphedema Referrals: Gilbert Keyes III, MD [Primary Care Provider] - Johan Perry MD [STAFF PHYSICIAN] - Additional Instructions: Interrogation of your device revealed no events or shocks. You are to follow-up with Dr. Perry. Continue present medication.
[2018-11-17 16:42] LABS: Hematocrit 36.5 % (40-54); Hemoglobin 12.2 g/dL (13.0-16.5); Mean Corp Hgb Conc 33.4 g/dL (32-36); Mean Corpuscular Volume 89.9 fL (80-94); Mean Platelet Vol. 10.4 fl (6.2-12.0); Platelet Count 156 K/mm3 (150-450); RBC Distribution Width CV 14.1 % (11.6-14.6); Red Blood Count 4.06 M/mm3 (4.6-6.2); White Blood Count 6.2 K/mm3 (4.4-11.0)
[2018-11-17 16:50] LABS: Anion Gap 8 (5-15); BUN 53 mg/dL (7-18); BUN/Creat Ratio 22.6 RATIO (10-20); Calcium,Total 8.2 mg/dL (8.5-10.1); Chloride 104 mmol/L (98-107); Creatinine, Serum 2.34 mg/dL (0.70-1.30); EST Glomerular Filtration Rate 29 mL/min (>60); Est Glom Filt Rate - Afr Amer 35 mL/min (>60); Glucose 189 mg/dL (74-106); Potassium 4.3 mmol/L (3.5-5.1); Sodium Level 137 mmol/L (136-145)
[2018-11-17 17:04] LABS: Prothrombin Time (Protime)PT. 22.9 SECONDS (11.7-14.9)
--- NOTE | 2018-11-17 19:12 | ED.RN ---
Verbal report from pacer rep Chiu stating there were no shocks, no events and in normal sinus rhythm.He will call I. T. to resend result via fax. Verified fax number.
[2018-11-17 20:10] VITALS: BP 131/94; PULSE 88; RESP 22; O2SAT 97
--- NOTE | 2018-11-17 20:11 | ED.RN ---
THIS NURSE REVIEWED D/C INSTRUCTIONS WITH PT AND VISITOR. BOTH VERBALIZED UNDERSTANDING OF INSTRUCTIONS. IV D/C. IV CATHETER INTACT. PT TOLERATED WELL. PT DENIES FURTHER NEEDS OR QUESTIONS AT THIS TIME. PT AMBULATES FROM ROOM ON OWN WITHOUT ASSISTANCE FROM STAFF
== END 2018-11-17 20:14 | disposition home or self-care (01) ==
PROVIDERS: Emergency Provider Emergency Medicine; Family Provider Family Medicine; PCP Family Medicine
DX: Z45.02 Encounter for adjustment and management of automatic implantable cardiac defibrillator (principal); R53.1 Weakness; R06.09 Other forms of dyspnea; I89.0 Lymphedema, not elsewhere classified; I87.2 Venous insufficiency (chronic) (peripheral); I25.118 Atherosclerotic heart disease of native coronary artery with other forms of angina pectoris; I25.2 Old myocardial infarction; E78.5 Hyperlipidemia, unspecified; I25.5 Ischemic cardiomyopathy; I36.1 Nonrheumatic tricuspid (valve) insufficiency; I47.2 Ventricular tachycardia; I48.92 Unspecified atrial flutter; Z79.82 Long term (current) use of aspirin; Z79.4 Long term (current) use of insulin; Z79.01 Long term (current) use of anticoagulants; Z79.02 Long term (current) use of antithrombotics/antiplatelets; Z79.899 Other long term (current) drug therapy; Z87.891 Personal history of nicotine dependence
CPT/HCPCS: 80048; 84484; 85027; 85610; 93005; 99284; A4216

== ENCOUNTER → 2018-11-26 | Outpatient (CLI) | payer MEDICARE, OTHER, SELFPAY ==
[2017-11-06 10:25] VITALS: BMI 37.2
[2018-11-17 16:14] VITALS: BMI 38.5
[2018-11-26 10:12] LABS: International Normalized Ratio 2.2
== END | disposition home or self-care (01) ==
LOC: LABSPEC 09:58
PROVIDERS: Family Provider Family Medicine; PCP Family Medicine; Referring Provider Family Medicine; Visit Provider Family Medicine
DX: I48.2 Chronic atrial fibrillation (principal)
CPT/HCPCS: 85610

== ENCOUNTER 2018-12-02 17:18 | Inpatient (IN) | payer MEDICARE, OTHER, SELFPAY ==
[2017-11-06 10:25] VITALS: BMI 37.2
[2018-12-02] VITALS (8 sets, daily range): BP systolic 112–133; BP diastolic 63–82; PULSE 58–67; RESP 16–20; TEMP 36.4–36.9; O2SAT 97–99; BMI 40.2; BMI 39.3
--- NOTE | 2018-12-02 17:28 | EKG12_ITS ---
Test Reason : CP Blood Pressure : / mmHG Vent. Rate : 067 BPM Atrial Rate : 067 BPM P-R Int : 208 ms QRS Dur : 104 ms QT Int : 442 ms P-R-T Axes : 018 -13 052 degrees QTc Int : 467 ms Normal sinus rhythm Inferior infarct , OLD Anterolateral infarct , new Consider right ventricular involvement in acute inferior infarct Abnormal ECG Confirmed by KATH GARCIA ([id number]), web editor STIVEN JACKSON ([id number]) on 12/06/2018 2:38:23 PM Referred By: Confirmed By:KATH GARCIA
--- NOTE | 2018-12-02 17:28 | RAD_ITS ---
STUDY: X-RAY CHEST REASON FOR EXAM: Male, 73 years old. Chest pain. TECHNIQUE: Single AP portable upright view of the chest. The patient remains in a lordotic position. COMPARISON: Portable AP upright chest x-ray July 14, 2018. FINDINGS: Single lead left subclavian cardiac pacemaker/AICD is unchanged. Stable mild elevation of the right diaphragm. The lungs are clear and expanded. There is no demonstrated pleural abnormality. Normal size heart. Normal mediastinum and eleuterio. Normal visualized pulmonary arteries. There is atherosclerotic calcification of the aortic arch. There are stable multilevel degenerative changes of the visualized thoracic spine. 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 There is no demonstrated abnormality of the visualized soft tissue structures of the upper abdomen. RAD/Chest 1 View (Portable) IMPRESSION: No acute cardiopulmonary disease. Electronically Signed: Agus Osborne MD at 17:47 EDT , Service support ,
[2018-12-02 17:34] LABS: Absolute Lymphocyte Count 1.25 X10^3/uL (0.83-4.51); Absolute Neutrophil Count 4.7 X10^3/uL (2.0-7.7); Basophil# 0.05 X10^3/uL; Basophil% 0.7 % (0-1); Eosinophil# 0.34 X10^3/uL; Eosinophils% 4.8 % (0-5); Hematocrit 38.3 % (40-54); Hemoglobin 13.1 g/dL (13.0-16.5); Lymphocyte # 1.25 X10^3/ul (4.0); Lymphocyte % 17.8 % (19-41); Mean Corp Hgb Conc 34.2 g/dL (32-36); Mean Corpuscular Hgb 30.6 pg (27.0-32.0); Mean Corpuscular Volume 89.5 fL (80-94); Mean Platelet Vol. 9.9 fl (6.2-12.0); Monocyte# 0.67 X10^3/uL; Monocyte% 9.5 % (0-10); NRBC Flagged by Analyzer 0 % (0-5); Neutrophil # 4.69 X10^3/uL (2.7-7.7); Neutrophil % 66.6 % (47-70); Platelet Count 156 K/mm3 (150-450); RBC Distribution Width CV 14.3 % (11.6-14.6); RBC Distribution Width SD 46.5 fl (35.1-43.9); Red Blood Count 4.28 M/mm3 (4.6-6.2)
[2018-12-02] MEDS: Aspirin 81 MG TAB.CHEW 324 MG PO (17:38)
[2018-12-02] MEDS: Nitroglycerin Oint 1 INCH PACKET TRANSDERM. (17:38)
--- NOTE | 2018-12-02 17:40 | ED.DCSUM_ITS ---
History of Present Illness Chief Complaint: Chest Pain Informant: Patient Onset: Weeks Context: Onset with activity, Gradual Onset Timing: Continuous Current Severity: Moderate Maximum Severity: Moderate Narrative: The patient presents to the emergency department chest pain. Patient has a history of coronary vascular disease and has had stent placement. He follows [facility] Dr. Perry. Patient was seen here about 2 weeks ago. At that point, he felt that his defibrillator had gone off. He is fibrillator was interrogated but no evidence of firing was found. Since then, he had persistent chest pain. He states is worse when he exerts himself. He never fully goes away. He did discuss this with Dr. Esquivel and was referred into the emergency department for further evaluation. The patient is on Coumadin for history of atrial fibrillation. He states his been compliant with this. Prior similar symptoms: Yes Recent Illness/Hospitalization: Yes Past Medical History - Allergies and Home Meds Allergies/Adverse Reactions: Allergies ceftriaxone sodium [From Rocephin] Allergy (Verified 12/02/18 17:18) Rash milk Adverse Reaction (Verified 12/02/18 17:18) Diarrhea morphine Adverse Reaction (Verified 12/02/18 17:18) hallucinations Primary Care Physician: Gilbert Keyes III, MD [Primary Care Provider] - Prior records reviewed: Yes Past Medical History: - Surgical History: - Smoking Status: Former smoker Alcohol: None Drugs: None - Family History Maternal Family History: Family History (Last Reviewed 09/07/18 @ 10:36 by Johan Perry MD) Father Prostate cancer Mother CVA (cerebral vascular accident) Sister Congestive heart failure Diabetes Hypertension Hyperlipidemia Atrial fibrillation CAD (coronary artery disease) Cardiac defibrillator in situ Sister Breast cancer Sister Breast cancer Brother CAD (coronary artery disease) Myocardial infarction Diabetes Brother Diabetes Brother COPD (chronic obstructive pulmonary disease) Sister Alive and well Family History: Reports: Stroke - CVA, age 80. Paternal Family History: Family History (Last Reviewed 09/07/18 @ 10:36 by Johan Perry MD) Father Prostate cancer Mother CVA (cerebral vascular accident) Sister Congestive heart failure Diabetes Hypertension Hyperlipidemia Atrial fibrillation CAD (coronary artery disease) Cardiac defibrillator in situ Sister Breast cancer Sister Breast cancer Brother CAD (coronary artery disease) Myocardial infarction Diabetes Brother Diabetes Brother COPD (chronic obstructive pulmonary disease) Sister Alive and well Family History: Reports: Cancer - Prostate CA, 78 y/o. Sibling Family History: Family History (Last Reviewed 09/07/18 @ 10:36 by Johan Perry MD) Father Prostate cancer Mother CVA (cerebral vascular accident) Sister Congestive heart failure Diabetes Hypertension Hyperlipidemia Atrial fibrillation CAD (coronary artery disease) Cardiac defibrillator in situ Sister Breast cancer Sister Breast cancer Brother CAD (coronary artery disease) Myocardial infarction Diabetes Brother Diabetes Brother COPD (chronic obstructive pulmonary disease) Sister Alive and well Family History: Reports: Diabetes Review of Systems General: Denies: Chills, Fever, Sweats Eyes: Denies: Visual changes - bilaterally, Diplopia ENT: Denies: Rhinorrhea, Sore throat Cardiovascular: Reports: Chest pain Respiratory: Reports: Dyspnea Gastrointestinal: Denies: Abdominal pain, Nausea, Vomiting, Diarrhea, Melena, Hematochezia Genitourinary: Denies: Dysuria, Hematuria, Frequency Musculoskeletal: Denies: Back pain, Extremity Pain Skin: Denies: Rash, Wounds Neurological: Denies: Headache, Weakness, Numbness Physical Exam Vital Signs/Narrative: Vital Signs Temp Pulse Resp BP Pulse Ox 12/02/18 17:34 99 12/02/18 17:19 98.3 F 67 20 H 133/79 H 97 Inital Vital Signs reviewed: Yes General: Well nourished, Well developed, No Acute Distress Head: Normocephalic, Atraumatic Eyes: Perrl, EOMI ENT: Moist mucous membranes, No rhinorrhea Neck: Supple, Nontender Cardiovascular: Regular rate, Regular rhythm, No murmurs Respiratory: No distress, CTA bilaterally, Chest nontender Abdomen: Soft, Nontender, Nondistended, Normal bowel sounds Back: Nontender, Normal Inspection Extremities: Nontender, No edema Skin: Normal color, No rash Neurological: Alert, Oriented x3, Cranial nerves II-XII grossly intact, Normal Strength, Normal Sensation Psychological: Normal affect, Normal Mood Diagnostic/Tx/Re-eval Chest X-Ray - ED: 1 View, Normal, Lungs, Mediastinum, Cardiomegaly Clinical Impression(s) from Imaging Studies Chest X-Ray 12/02/18 17:28 IMPRESSION: No acute cardiopulmonary disease. Electronically Signed: Agus Osborne MD at 17:47 EDT , Service support , Abnormal Lab Results 12/02/18 12/02/18 12/02/18 17:21 17:21 17:21 WBC 7.0 RBC 4.28 L Hgb 13.1 Hct 38.3 L MCV 89.5 MCH 30.6 MCHC 34.2 RDW Std Deviation 46.5 H RDW Coeff of Galo 14.3 Plt Count 156 MPV 9.9 Immature Gran % (Auto) 0.600 Neut % (Auto) 66.6 Lymph % (Auto) 17.8 L [place] % (Auto) 9.5 Eos % (Auto) 4.8 Baso % (Auto) 0.7 Absolute Neuts (auto) 4.7 Absolute Lymphs (auto) 1.25 Nucleated RBC % 0 PT 27.8 H INR 2.6 Sodium 143 Potassium 4.1 Chloride 107 Carbon Dioxide 29.0 Anion Gap 7 BUN 37 H Creatinine 1.66 H Estim Creat Clear Calc 38.34 Est GFR (MDRD) Af Amer 53 L Est GFR (MDRD) Non-Af 43 L BUN/Creatinine Ratio 22.3 H Glucose 136 H Calcium 8.6 Troponin I 0.022 - Rhythm Strip Rhythm Strip: Sinus Rhythm Rate: 67 Ectopy: None - EKG Initial EKG Interpretation: Sinus Rhythm, RBBB, Non-Specific ST Changes Prior: Unchanged - Medical Decision Making EKG was obtained on patient arrival. It was read as STEMI, but the patient has a right bundle branch block, inferior Q waves, and it is unchanged from June of this year. I do not feel this represents an acute STEMI. I did send the EKGs to Dr. Esquivel who had already discussed the patient with Dr. Keyes prior to the patient's arrival. He was able to review the EKGs and agreed. The patient was given nitro with little change in his pain. His cardiac enzymes were not significantly elevated. His creatinine has improved. After discussion with cardiology, the plan will be to admit the patient for echo and potential heart catheterization. His defibrillator did fire 2 weeks ago for sinus tachycardia. There was no V. tach and the patient had been compliant with his medications. In light of his significant cardiac history, the patient will be admitted at this time. Impression 1. Chest pain ED Disposition - Plan for ED Patient: Referrals: Gilbert Keyes III, MD [Primary Care Provider] -
[2018-12-02 17:44] LABS: International Normalized Ratio 2.6; Prothrombin Time (Protime)PT. 27.8 SECONDS (11.7-14.9)
[2018-12-02 17:49] LABS: Anion Gap 7 (5-15); BUN 37 mg/dL (7-18); BUN/Creat Ratio 22.3 RATIO (10-20); Calcium,Total 8.6 mg/dL (8.5-10.1); Chloride 107 mmol/L (98-107); Creatinine, Serum 1.66 mg/dL (0.70-1.30); EST Glomerular Filtration Rate 43 mL/min (>60); Est Glom Filt Rate - Afr Amer 53 mL/min (>60); Estimated Creatinine Clearance 38.34 ml/min; Glucose 136 mg/dL (74-106); Potassium 4.1 mmol/L (3.5-5.1); Sodium Level 143 mmol/L (136-145)
[2018-12-02 18:09] LABS: BNP,B-Type NATRIURETIC PEPTIDE 28.3 pg/mL (0-100)
--- NOTE | 2018-12-02 18:30 | HP.PCM_ITS ---
Problem List (1) Chest pain Status: Acute Qualifiers: Chest pain type: intercostal pain Qualified Code(s): R07.82 - Intercostal pain History of Present Illness Date of Admission: 12/02/18 Chief Complaint: chest pain The patient is a 73 year old M who is defibrillator fired on November 17. Patient was seen in the emergency room and had his defibrillator interrogated at that time and so no arrhythmia patient trigger rate was increased from 1 50-1 70. Since then, he has been having left-sided chest pain that is not relieved nor exacerbated by anything particular but states that the pain is constant but does get worse at times but is not able to state if anything particularly exacerbates it or not. Does have shortness of breath during this time and also complains of lower extremity edema but states that he has lost a few pounds over the past few weeks. Dr. Esquivel, cardiology, was contacted through the emergency room and stated to bring the patient in and to check an echocardiogram. [] Past Medical History Past Medical History (Chronic Problems): Chronic Problems (Last Reviewed 09/07/18 @ 10:36 by Johan Perry MD) Paroxysmal atrial flutter (Chronic) Nonsustained ventricular tachycardia (Chronic) History of implantable cardiac defibrillator (ICD) (Chronic 11/19/17) 11/23/2002, Generator change 2017 Hyperlipidemia (Chronic) History of non-ST elevation myocardial infarction (NSTEMI) (Chronic 11/05/16) Atherosclerotic heart disease of [place] coronary artery with other forms of angina pectoris (Chronic) SNS-Ogoyk-Qin Cx; PCI-Cutting Balloon Angioplasty of ISR-ostium of prox lat CX 11/22/02; PCI-stent to proximal OM 01/2008; PCI- [id number] OM 12/15/13;[facility] w/FFR of LAD, D1, LCx 05/30/2016 Nonrheumatic tricuspid (valve) insufficiency (Chronic) Ischemic cardiomyopathy (Chronic) Medical History: Medical History (Last Reviewed 12/02/18 @ 18:32 by Wesley Roland DO) Paroxysmal atrial flutter (Chronic) I48.92 Nonsustained ventricular tachycardia (Chronic) I47.2 History of implantable cardiac defibrillator (ICD) (Chronic) Onset Date: 11/19/17 11/23/2002, Generator change 2017 Hyperlipidemia (Chronic) E78.5 History of non-ST elevation myocardial infarction (NSTEMI) (Chronic) Onset Date: 11/05/16 I25.2 Atherosclerotic heart disease of [place] coronary artery with other forms of angina pectoris (Chronic) I25.118 YSN-Rslhm-Zyr Cx; PCI-Cutting Balloon Angioplasty of ISR-ostium of prox lat CX 11/22/02; PCI-stent to proximal OM 01/2008; PCI- UND-TUG-Ambs OM 12/15/13;[facility] w/FFR of LAD, D1, LCx 05/30/2016 Nonrheumatic tricuspid (valve) insufficiency (Chronic) I36.1 Ischemic cardiomyopathy (Chronic) I25.5 Obesity E66.9 Paroxysmal supraventricular tachycardia I47.1 Type 2 diabetes mellitus E11.9 History of deep vein thrombosis (DVT) of lower extremity Z86.718 Allergies ceftriaxone sodium [From Rocephin] Allergy (Verified 12/02/18 17:18) Rash milk Adverse Reaction (Verified 12/02/18 17:18) Diarrhea morphine Adverse Reaction (Verified 12/02/18 17:18) hallucinations Home Medications: Ambulatory Orders Medication Instructions Recorded Clopidogrel Bisulfate [Plavix] 75 mg PO DAILY 12/04/14 Insulin NPH Human [Humulin N Pen] 32 units SC BREAKFAST 12/04/14 Furosemide [Lasix] 40 mg PO BID 12/14/14 Nitroglycerin (INPATIENT USE) 0.4 mg SUBLINGUAL Q5M PRN #0 tab 05/31/16 [Nitrostat] Insulin NPH Human Isophane 32 units SQ QHS #0 07/07/17 [Humulin N Vial] Insulin Lispro [Humalog] 20 unit SQ TIDCM 08/25/17 Lisinopril [Zestril] 20 mg PO DAILY 08/25/17 amiodarone 200 mg tablet 200 mg PO DAILY #90 tab 11/19/17 pantoprazole 40 mg tablet,delayed 40 mg PO DAILY #90 tab 03/05/18 release rosuvastatin 40 mg tablet 40 mg PO QHS #90 tab 04/20/18 gabapentin 300 mg capsule 300 mg PO BID 90 Days #270 cap 09/07/18 isosorbide mononitrate ER 60 mg 30 mg PO DAILY 09/07/18 tablet,extended release 24 hr carvedilol 6.25 mg tablet 6.25 mg PO BID #180 tab 10/11/18 Aspirin E.C. [Ecotrin] 81 mg PO DAILY@0800 11/17/18 Latanoprost 1 drp EACH EYE QHS 11/17/18 Spironolactone 25 mg PO DAILY 11/17/18 Warfarin Sodium 6 mg PO DAILY 11/17/18 Amlodipine [Norvasc] 10 mg PO DAILY 12/02/18 Colestipol Tablet [Colestid Tablet] 1 gm PO BID 12/02/18 Fenofibrate Nanocrystallized 145 mg PO DAILY 12/02/18 [Tricor] Ranolazine [Ranexa] 1,000 mg PO BID 12/02/18 Ropinirole HCl [Requip] 0.25 mg PO QHS 12/02/18 Surgical History: Surgical History (Last Reviewed 12/02/18 @ 18:33 by Wesley Roland DO) History of coronary artery stent placement (Resolved) Onset Date: 12/15/14 Z95.5 [id number]; PCI-Cutting Balloon Angioplasty of ISR-ostium of prox OM1 11/22/02; PCI-stent to proximal OM1 01/2008; PCI- [id number] OM1 w/ 2.5 x 12 mm Promus Premier 12/15/14 H/O colonoscopy with polypectomy Onset Date: 11/2017 Z98.890, Z86.010 History of detached retina repair Z98.890, Z86.69 torn History of electrophysiologic study Onset Date: 11/23/02 Z98.890 History of left heart catheterization Onset Date: 05/30/16 Z98.890 FFR of LAD, D1, LCx 05/30/2016 History of radiofrequency ablation procedure for cardiac arrhythmia Onset Date: 07/01/11 Z98.890 Surgical History: - Psychiatric History: No pertinent psych hx Smoking Status: Former smoker Alcohol: None Drugs: None - *Family History Maternal Family History: Family History (Last Reviewed 12/02/18 @ 18:33 by Wesley Roland DO) Father Prostate cancer Mother CVA (cerebral vascular accident) Sister Congestive heart failure Diabetes Hypertension Hyperlipidemia Atrial fibrillation CAD (coronary artery disease) Cardiac defibrillator in situ Sister Breast cancer Sister Breast cancer Brother CAD (coronary artery disease) Myocardial infarction Diabetes Brother Diabetes Brother COPD (chronic obstructive pulmonary disease) Sister Alive and well History Items: Stroke - CVA, age 80. Paternal Family History: Family History (Last Reviewed 12/02/18 @ 18:33 by Wesley Roland DO) Father Prostate cancer Mother CVA (cerebral vascular accident) Sister Congestive heart failure Diabetes Hypertension Hyperlipidemia Atrial fibrillation CAD (coronary artery disease) Cardiac defibrillator in situ Sister Breast cancer Sister Breast cancer Brother CAD (coronary artery disease) Myocardial infarction Diabetes Brother Diabetes Brother COPD (chronic obstructive pulmonary disease) Sister Alive and well History Items: Cancer - Prostate CA, 78 y/o. Sibling Family History: Family History (Last Reviewed 12/02/18 @ 18:33 by Wesley Roland DO) Father Prostate cancer Mother CVA (cerebral vascular accident) Sister Congestive heart failure Diabetes Hypertension Hyperlipidemia Atrial fibrillation CAD (coronary artery disease) Cardiac defibrillator in situ Sister Breast cancer Sister Breast cancer Brother CAD (coronary artery disease) Myocardial infarction Diabetes Brother Diabetes Brother COPD (chronic obstructive pulmonary disease) Sister Alive and well History Items: Diabetes Review of Systems Constitutional: Denies: Chills, Fever, Weight Change Eyes: Denies: Blurred vision, Double vision HEENT: Denies: Head Aches, Sinus Congestion, Sinus Drainage Cardiovascular: Reports: Chest Pain, Edema Respiratory: Reports: Cough, Shortness of Breath. Denies: Sputum production Gastrointestinal: Reports: Nausea. Denies: Abdominal Pain, Vomiting Genitourinary: Denies: Dysuria Musculoskeletal: Denies: Joint Pain, Joint Tenderness Skin: Denies: Rash, Wounds Neurological: Denies: Blurred vision, Double vision, Focal weakness, Numbness, Tingling Psychiatric: Denies: Anxiety, Depression Endocrine: Denies: Change in Body Habitus, Heat/ Cold Intolerance Hematologic/ Lymphatic: Denies: Easy Bruising, Easy Bleeding, Hx of blood clot Comment: A 10 point review of systems were negative except as mentioned in the history of present illness and the other review of systems. VTE Information - Inpt Only VTE Present on Admission: No VTE Mechan Device Prophylaxis: None VTE Pharm Prophylaxis ordered?: No Reason prophylaxis not ordered:: Procedure Not Indicated Patient Problems: Active and Suspected Problems (Last Reviewed 09/07/18 @ 10:36 by Johan Perry MD) Chest pain (Acute) - Physical Exam General: Alert, Cooperative, No apparent distress HEENT: Atraumatic, Normocephalic, - - No icterus Oral: Moist Mucosa, No Gingival or Mucosal Lesions/ Ulcerations Neck: No JVD, No Nodes Lungs: Clear to auscultation, Normal air movement, No rhonchi, No wheeze, No rales Cardiovascular: Regular rate, Regular Rhythm, Normal S1, Normal S2 Abdomen: Bowel Sounds Present, Soft, Non Tender, Non-Distended, Obese Extremities: No Calf Tenderness, Edema Skin: No breakdown, - - Venous stasis dermatitis of lower extremities Musculoskeletal: No Tenderness to Palpation of Joints or Extremities, No Muscle Wasting, - - Reproducible left anterior chest wall tenderness consistent with his chest pain that he is presenting with. Neurological: Deep Tendon Reflexes 2+/4 and Symmetrical, - - No clonus Psych/Mental Status: Normal Affect, Appropriate Vital Signs Temp Pulse Resp BP Pulse Ox 36.8 C 67 20 H 133/79 H 99 12/02/18 17:19 12/02/18 17:19 12/02/18 17:19 12/02/18 17:19 12/02/18 17:34 Oxygen Flow Rate (L/min) 2 Oxygen Delivery Method Nasal Cannula Weight: 120 kg Body Mass Index (BMI) 40.2 Finger Stick Blood Glucose 180 Laboratory Tests Past 24 Hrs 12/02/18 12/02/18 12/02/18 17:21 17:21 17:21 WBC 7.0 RBC 4.28 L Hgb 13.1 Hct 38.3 L MCV 89.5 MCH 30.6 MCHC 34.2 RDW Std Deviation 46.5 H RDW Coeff of Galo 14.3 Plt Count 156 MPV 9.9 Immature Gran % (Auto) 0.600 Neut % (Auto) 66.6 Lymph % (Auto) 17.8 L [place] % (Auto) 9.5 Eos % (Auto) 4.8 Baso % (Auto) 0.7 Absolute Neuts (auto) 4.7 Absolute Lymphs (auto) 1.25 Nucleated RBC % 0 PT 27.8 H INR 2.6 Sodium 143 Potassium 4.1 Chloride 107 Carbon Dioxide 29.0 Anion Gap 7 BUN 37 H Creatinine 1.66 H Estim Creat Clear Calc 38.34 Est GFR (MDRD) Af Amer 53 L Est GFR (MDRD) Non-Af 43 L BUN/Creatinine Ratio 22.3 H Glucose 136 H Calcium 8.6 Troponin I 0.022 C-React Prot High Sens B-Natriuretic Peptide 12/02/18 12/02/18 17:21 17:21 WBC RBC Hgb Hct MCV MCH MCHC RDW Std Deviation RDW Coeff of Galo Plt Count MPV Immature Gran % (Auto) Neut % (Auto) Lymph % (Auto) [place] % (Auto) Eos % (Auto) Baso % (Auto) Absolute Neuts (auto) Absolute Lymphs (auto) Nucleated RBC % PT INR Sodium Potassium Chloride Carbon Dioxide Anion Gap BUN Creatinine Estim Creat Clear Calc Est GFR (MDRD) Af Amer Est GFR (MDRD) Non-Af BUN/Creatinine Ratio Glucose Calcium Troponin I C-React Prot High Sens Pending B-Natriuretic Peptide 28.3 EKG reviewed and showed normal sinus rhythm with ST elevations in inferior leads. This is unchanged from July 14, 2018. Chest x-ray personally reviewed and showed defibrillator, low inspiratory volumes. No acute pulmonary vascular congestion or infiltrate. Assessment/Plan All Active Problems (Last Reviewed 09/07/18 @ 10:36 by Johan Perry MD) Chest pain (Acute) History of coronary artery stent placement (Resolved 12/15/14) Abnormal CT scan, colon (Resolved) Diarrhea, unspecified (Resolved) Epigastric pain (Resolved) Hypertensive crisis (Resolved) Left lower quadrant pain (Resolved) Unstable angina (Resolved) 1. Chest pain * May be musculoskeletal possibly related with the defibrillator firing or just could be related just musculoskeletal that may have coincided with that * But given patient's comorbidities, patient will be monitored, have troponins checked and check an echocardiogram in the morning. Will consult cardiology for further input and evaluation. 2. Heart failure with reduced ejection fraction * EF of 45% on echocardiogram July 06, 2017 * Clinically compensated at this time * Continue with furosemide, spironolactone, lisinopril, carvedilol. * Fluid restrict 1500 cc/day 3. Paroxysmal atrial fibrillation * Currently normal sinus * Anticoagulated on warfarin * Continue carvedilol 4. Diabetes mellitus type 2 * Continue with the patient's NPH as well as log. Patient also be on sliding scale insulin to supplement if needed 5. VTE prophylaxis: Patient is low risk given the fact that he is already anticoagulated on Coumadin but also he is observation status at this time. Therefore VTE prophylaxis not indicated. 6. Advanced care planning: Discussed with the patient. Patient does not wish to have CPR nor to be intubated, even if it is short-term. Therefore, the patient is DNR Comfort Care arrest with no intubation. Code Visit OBSV E&M: 39916 Initial observation care L3
[2018-12-02 18:41] LABS: Erythrocyte Sedimentation Rate < 1 mm/hr (0-20)
[2018-12-02 18:41] LABS: CRP, High Sensitivity Cardiac 1.87 mg/L
--- NOTE | 2018-12-02 19:11 | ECHOD_ITS ---
Reason For Study: CHEST PAIN Procedure This was a 2D Doppler, Color Flow transthoracic echocardiogram. Exam performed in department. Left Ventricle Moderately dilated left ventricle. Mild concentric left ventricular hypertrophy. The estimated ejection fraction is 45 %. Stage 1 diastolic dysfunction. No regional wall motion abnormalities noted. Right Ventricle Moderately dilated right ventricle. ICD or pacer leads identified within the right ventricle. Mild global right ventricular systolic dysfunction. Atria Normal left atrium. Normal right atrium. Normal atrial septum. Mitral Valve The mitral valve is structurally normal. No prolapse or stenosis seen. Tricuspid Valve Normal tricuspid valve. Mild (1+) tricuspid valve insufficiency. Right ventricular systolic pressure estimated to be 27 mmHg. Aortic Valve Trisinus/trileaflet aortic valve. Mild focal aortic valve thickening. Pulmonic Valve Normal pulmonic valve. Great Vessels Calcified aortic root. Normal arch. Pericardium/Pleural No pericardial effusion. MMode/2D Measurements & Calculations LVIDd: 5.4 cm IVSd: 1.7 cm Ao root diam: 3.4 cm LVIDs: 4.0 cm LVPWd: 1.4 cm RVDd: 4.1 cm FS: 26.6 % LAV(MOD-bp): 49.7 ml LA A4 area: 16.7 cm2 LA dimension(2D): 4.3 cm LAV(MOD-bp) Indexed: 21.8 ml/m2 LAV(MOD-sp2): 55.7 ml LAV(MOD-sp4): 44.4 ml RA A4 area: 18.7 cm2 Time Measurements MV dec time: 0.21 sec Doppler Measurements & Calculations MV E max kuldip: 68.9 cm/sec Lat Peak E' Kuldip: 9.9 cm/sec Med Peak E' Kuldip: 7.9 cm/sec MV A max kuldip: 98.7 cm/sec E/E' lat: 6.9 E/E' med: 8.7 MV E/A: 0.70 Ao V2 max: 144.4 cm/sec LV V1 max: 103.3 cm/sec PA V2 max: 106.2 cm/sec Ao max P.3 mmHg LV V1 max P.3 mmHg TR max kuldip: 234.1 cm/sec TR max P.9 mmHg Interpretation Summary Moderately dilated left ventricle. The estimated ejection fraction is 45 %. Stage 1 diastolic dysfunction. Moderately dilated right ventricle. Mild global right ventricular systolic dysfunction. Mild concentric left ventricular hypertrophy. Mild (1+) tricuspid valve insufficiency. Right ventricular systolic pressure estimated to be 27 mmHg. Compared to echo report dated 07/06/2017, no appreciable changes noted. Ordering Physician: Wesley Roland Referring Physician: Gilbert Keyes Performed By: Ngozi Dillard, EMMA, RVT
[2018-12-02] MEDS: Carvedilol 6.25 MG Tablet PO (23:38)
[2018-12-02] MEDS: Glucerna Shake 120 ML LIQUID PO (23:38)
[2018-12-02] MEDS: Insulin NPH Human 100 UNITS/ML PEN 32 UNITS SC (23:38)
[2018-12-02] MEDS: Atorvastatin Calcium 80 MG Tablet PO (23:39)
[2018-12-02] MEDS: Pramipexole Di-HCl 0.125 MG Tablet PO (23:39)
[2018-12-02] MEDS: Ranolazine 500 MG Tablet 1000 MG PO (23:39)
[2018-12-02] MEDS: Latanoprost 0.005% 1 Bottle 1 DRP EACH EYE (23:40)
[2018-12-02 23:56] LABS: Bedside Glucose 189 mg/dL (70-110)
[2018-12-03] VITALS (15 sets, daily range): BP systolic 83–124; BP diastolic 51–71; PULSE 39–62; RESP 14–18; TEMP 36.4–36.8; O2SAT 95–98
[2018-12-03] MEDS: Albuterol 2.5 MG/3 ML VIAL.NEB. INHALATION (00:10)
[2018-12-03 06:44] LABS: Prothrombin Time (Protime)PT. 31.2 SECONDS (11.7-14.9)
[2018-12-03 06:58] LABS: Anion Gap 6 (5-15); BUN 30 mg/dL (7-18); BUN/Creat Ratio 24.2 RATIO (10-20); Calcium,Total 8.1 mg/dL (8.5-10.1); Chloride 110 mmol/L (98-107); Cholesterol 135 mg/dL (200); Creatinine, Serum 1.24 mg/dL (0.70-1.30); EST Glomerular Filtration Rate 61 mL/min (>60); Est Glom Filt Rate - Afr Amer 74 mL/min (>60); Estimated Creatinine Clearance 51.33 ml/min; Glucose 151 mg/dL (74-106); High Density Lipoprotein 35 mg/dL; Sodium Level 145 mmol/L (136-145); Triglycerides 207 mg/dL; Very Low Density Lipoprotein 41 mg/dL (5-40)
[2018-12-03 08:36] LABS: Bedside Glucose 206 mg/dL (70-110)
[2018-12-03] MEDS: Insulin Lispro 100 UNIT/ML INSULN.PEN SC ×2 (08:36→12:52)
[2018-12-03] MEDS: Insulin NPH Human 100 UNITS/ML PEN 32 UNITS SC (08:36)
[2018-12-03] MEDS: Insulin Lispro 100 UNIT/ML INSULN.PEN 20 UNIT SC (08:37)
[2018-12-03] MEDS: Gabapentin 300 MG Capsule PO ×3 (09:54→17:10)
[2018-12-03] MEDS: Fenofibrate 145 MG Tablet PO (09:54)
[2018-12-03] MEDS: Aspirin E.C. 81 MG Tablet PO (09:54)
[2018-12-03] MEDS: Spironolactone 25 MG Tablet PO (09:54)
[2018-12-03] MEDS: Carvedilol 6.25 MG Tablet PO (09:55)
[2018-12-03] MEDS: Amiodarone 200 MG Tablet PO (09:55)
[2018-12-03] MEDS: Isosorbide Mononitrate 30 MG Tablet PO (09:56)
[2018-12-03] MEDS: Clopidogrel Bisulfate 75 MG Tablet PO (09:57)
[2018-12-03] MEDS: Furosemide 40 MG Tablet PO (09:57)
[2018-12-03] MEDS: Pantoprazole Sodium 40 MG Tablet PO (09:58)
[2018-12-03] MEDS: Ranolazine 500 MG Tablet 1000 MG PO ×2 (09:59→21:36)
[2018-12-03] MEDS: Lisinopril 20 MG Tablet PO (09:59)
--- NOTE | 2018-12-03 10:02 | CON.PCM_ITS ---
Problem List (1) Chest pain Status: Acute Qualifiers: Chest pain type: intercostal pain Qualified Code(s): R07.82 - Intercostal pain (2) Paroxysmal atrial flutter Status: Chronic (3) History of implantable cardiac defibrillator (ICD) Status: Chronic Comment: 11/23/2002, Generator change 2017 (4) History of coronary artery stent placement Status: Resolved Comment: [id number]; PCI-Cutting Balloon Angioplasty of ISR-ostium of prox OM1 11/22/02; PCI-stent to proximal OM1 01/2008; PCI- LEANNA-ISR- Prox OM1 w/ 2.5 x 12 mm Promus Premier 12/15/14 (5) Hyperlipidemia Status: Chronic Qualifiers: Hyperlipidemia type: unspecified Qualified Code(s): E78.5 - Hyperlipidemia, unspecified (6) History of non-ST elevation myocardial infarction (NSTEMI) Status: Chronic (7) Atherosclerotic heart disease of [place] coronary artery with other forms of angina pectoris Status: Chronic Comment: [id number] Cx; PCI-Cutting Balloon Angioplasty of ISR-ostium of prox lat CX 11/22/02; PCI-stent to proximal OM 01/2008; PCI- [id number] OM 12/15/13;[facility] w/FFR of LAD, D1, LCx 05/30/2016 (8) Ischemic cardiomyopathy Status: Chronic Reason for Consult Date of Consultation: 12/03/18 Reason for Consultation: Ischemic cardiomyopathy, coronary artery disease status post angioplasty and stenting, status post AICD placement, LV dysfunction, paroxysmal atrial flutter, hypertension, hypercholesterolemia History of Present Illness: LOVELY LONG, is a 72 M who nondiabetic, with a history of hypertension, hypercholesterolemia, coronary artery disease. He has a history of coronary artery disease with a non-ST myocardial infarction, ischemic cardiomyopathy with ICD implant, hyperlipidemia and diabetes. Heart catheterization done in 2015 demonstrated angiographically normal left main, LAD no high-grade stenosis, first diagonal with high-grade ostial stenosis compared to previous ostial stenosis and LAD and diagonal appear to be unchanged. Circumflex artery previously stented patent. RCA totally occluded. Medical management was recommended. Ejection fraction was noted to be 35-40%. The patient returned on 05/30/2016 underwent repeat catheterization which demonstrated occluded RCA, widely patent left circumflex stent with possible significant mid left circumflex stenosis which was evaluated with FFR was found to be negative. Possibly significant mid LAD stenosis with a complex bifurcating LAD diagonal stenosis also evaluated with FFR and apparently negative as well. No additional stenting was performed at that time. At that time he had significant inferior hypokinesis, with mild mid anterior hypokinesis and was status post AICD placement. [] Patient recently underwent a non-walking nuclear stress test on 07/06/2017 which demonstrated old inferior infarct, no evidence of ischemia noted. More recently about 2 years ago he underwent defibrillator generator change out, and has been doing well up until around 2 weeks ago when he experienced a defibrillator shock. He sought medical attention in the emergency room where he was evaluated by Mary Alice Morales and the pacemaker rep. At that time it was found that the patient had sinus tachycardia with an inappropriate shock, while he was working in the garage. Ever since that time the patient has had constant, dull, midsternal chest pain superimposed on reproducible tactile chest pain when you press on the anterior portion of his chest. Patient has had no subsequent defibrillator discharges. Last evening while the patient was in Dr. Gilbert Keyes's office, he complained of chest pain and an EKG was performed in his office. This demonstrated J-point elevation of the inferior leads, and right bundle branch block which was uncertain whether was new or old. The patient was referred to the emergency room where a confirmatory EKG was obtained and an old EKG was compared showing that these changes had been present for some time. His troponins are negative x2. His EKG showed normal sinus rhythm with J-point elevation in the inferior leads where he has old inferior posterior wall myocardial infarction and baseline right bundle branch block. His sed rate was negative. On further history and separate from his chest pain the patient has noted worsening dyspnea on exertion, shortness of breath, and worsening lower extremity edema. The patient admits to dietary indiscretion with salt water food items. He does admit to taking and tolerating his medicines well. He is currently on Coumadin and his initial INR was 2.6 and is increased to 3.0. Past Medical History Allergies/Adverse Reactions: Allergies ceftriaxone sodium [From Rocephin] Allergy (Verified 12/02/18 17:18) Rash milk Adverse Reaction (Verified 12/02/18 17:18) Diarrhea morphine Adverse Reaction (Verified 12/02/18 17:18) hallucinations Home Medications: Ambulatory Orders Medication Instructions Recorded Clopidogrel Bisulfate [Plavix] 75 mg PO DAILY 12/04/14 Furosemide [Lasix] 40 mg PO DAILY 12/14/14 Nitroglycerin (INPATIENT USE) 0.4 mg SUBLINGUAL Q5M PRN #0 tab 05/31/16 [Nitrostat] Insulin Lispro [Humalog] 20 unit SQ TIDCM 08/25/17 Lisinopril [Zestril] 20 mg PO DAILY 08/25/17 amiodarone 200 mg tablet 200 mg PO DAILY #90 tab 11/19/17 pantoprazole 40 mg tablet,delayed 40 mg PO DAILY #90 tab 03/05/18 release rosuvastatin 40 mg tablet 40 mg PO QHS #90 tab 04/20/18 gabapentin 300 mg capsule 300 mg PO TID 90 Days #270 cap 09/07/18 isosorbide mononitrate ER 60 mg 30 mg PO DAILY 09/07/18 tablet,extended release 24 hr carvedilol 6.25 mg tablet 6.25 mg PO BID #180 tab 10/11/18 Aspirin E.C. [Ecotrin] 81 mg PO DAILY@0800 11/17/18 Latanoprost 1 drp EACH EYE QHS 11/17/18 Spironolactone 25 mg PO DAILY 11/17/18 Warfarin Sodium 6 mg PO DAILY 11/17/18 Colestipol Tablet [Colestid Tablet] 1 gm PO BID 12/02/18 Fenofibrate Nanocrystallized 145 mg PO DAILY 12/02/18 [Tricor] Insulin NPH Human Isophane 32 units SQ BID 12/02/18 [Humulin N Vial] Ranolazine [Ranexa] 1,000 mg PO BID 12/02/18 Ropinirole HCl [Requip] 0.25 mg PO QHS 12/02/18 Past Medical History (Chronic Problems): Chronic Problems (Last Updated 12/03/18 @ 10:01 by Mikey Mitchell MD) Paroxysmal atrial flutter (Chronic) Nonsustained ventricular tachycardia (Chronic) History of implantable cardiac defibrillator (ICD) (Chronic 11/19/17) 11/23/2002, Generator change 2018 Hyperlipidemia (Chronic) History of non-ST elevation myocardial infarction (NSTEMI) (Chronic 11/05/16) Atherosclerotic heart disease of [place] coronary artery with other forms of angina pectoris (Chronic) SPW-Nebzo-Imu Cx; PCI-Cutting Balloon Angioplasty of ISR-ostium of prox lat CX 11/22/02; PCI-stent to proximal OM 01/2008; PCI- [id number] OM 12/15/13;[facility] w/FFR of LAD, D1, LCx 05/30/2016 Nonrheumatic tricuspid (valve) insufficiency (Chronic) Ischemic cardiomyopathy (Chronic) Surgical History: - Psychiatric History: No pertinent psych hx - *Family History Maternal Family History: Family History (Last Reviewed 12/02/18 @ 18:33 by Wesley Roland DO) Father Prostate cancer Mother CVA (cerebral vascular accident) Sister Congestive heart failure Diabetes Hypertension Hyperlipidemia Atrial fibrillation CAD (coronary artery disease) Cardiac defibrillator in situ Sister Breast cancer Sister Breast cancer Brother CAD (coronary artery disease) Myocardial infarction Diabetes Brother Diabetes Brother COPD (chronic obstructive pulmonary disease) Sister Alive and well History Items: Stroke - CVA, age 80. Paternal Family History: Family History (Last Reviewed 12/02/18 @ 18:33 by Wesley Roland DO) Father Prostate cancer Mother CVA (cerebral vascular accident) Sister Congestive heart failure Diabetes Hypertension Hyperlipidemia Atrial fibrillation CAD (coronary artery disease) Cardiac defibrillator in situ Sister Breast cancer Sister Breast cancer Brother CAD (coronary artery disease) Myocardial infarction Diabetes Brother Diabetes Brother COPD (chronic obstructive pulmonary disease) Sister Alive and well History Items: Cancer - Prostate CA, 78 y/o. Sibling Family History: Family History (Last Reviewed 12/02/18 @ 18:33 by Wesley Roland DO) Father Prostate cancer Mother CVA (cerebral vascular accident) Sister Congestive heart failure Diabetes Hypertension Hyperlipidemia Atrial fibrillation CAD (coronary artery disease) Cardiac defibrillator in situ Sister Breast cancer Sister Breast cancer Brother CAD (coronary artery disease) Myocardial infarction Diabetes Brother Diabetes Brother COPD (chronic obstructive pulmonary disease) Sister Alive and well History Items: Diabetes Smoking Status: Former smoker Alcohol: None Drugs: None Review of Systems - Review of Systems General: Denies: Fever, Night Sweats, Fatigue Cardiovascular: Reports: Chest Discomfort, Chest Discomfort at Rest, Shortness of Breath with Exertion, Orthopnea, Peripheral Edema. Denies: Shortness of Breath, PND, Palpitations, Lightheadedness, Dizziness, Near Syncope, Syncope Respiratory: Denies: Cough, Sputum Production, Hemoptysis Gastrointestinal: Denies: Hematemesis, Hematochezia, Melena Genitourinary: Denies: Dysuria, Hematuria Skin: Denies: Rash Subjectve: Patient laying in bed about 45 degrees, no acute distress. Has some mild conversational dyspnea. Objective: Vital Signs Temp Pulse Resp BP Pulse Ox 98.3 F 59 L 16 124/71 H 98 12/03/18 09:50 12/03/18 09:50 12/03/18 09:50 12/03/18 09:50 12/03/18 09:50 Oxygen Flow Rate (L/min) 2 Oxygen Delivery Method Room Air Weight: 258 lb 11.2 oz Body Mass Index (BMI) 39.3 Finger Stick Blood Glucose 180 Intake and Output for Last 24 Hours 12/01/18 12/02/18 12/03/18 23:59 23:59 23:59 Intake Total 435 / 435 Output Total 200 / 200 Balance 235 / 235 General: Awake, Alert, Oriented x 3 HEENT: PERRL, EOMI, Sclera Non Icteric Neck: Supple, Good ROM, No Lymph Node Enlargement Lungs: Clear to auscultation Cardiovascular: Regular Rhythm, Normal S1, Normal S2, No Murmurs, No Rubs, No Gallops 12/02/18 17:21: WBC 7.0, RBC 4.28 L, Hgb 13.1, Hct 38.3 L, MCV 89.5, MCH 30.6, MCHC 34.2, Plt Count 156, MPV 9.9, Immature Gran % (Auto) 0.600, Neut % (Auto) 66.6, Lymph % (Auto) 17.8 L, [place] % (Auto) 9.5, Eos % (Auto) 4.8, Baso % (Auto) 0.7, Absolute Neuts (auto) 4.7, Nucleated RBC % 0 12/02/18 17:21: PT 27.8 H, INR 2.6 12/02/18 17:21: Sodium 143, Potassium 4.1, Chloride 107, Carbon Dioxide 29.0, Anion Gap 7, BUN 37 H, Creatinine 1.66 H, Est GFR (MDRD) Af Amer 53 L, Est GFR (MDRD) Non-Af 43 L, BUN/Creatinine Ratio 22.3 H, Glucose 136 H, Calcium 8.6, Troponin I 0.022 12/02/18 17:21: B-Natriuretic Peptide 28.3 12/02/18 20:25: Troponin I 0.016 12/02/18 22:56: Troponin I 0.026 12/03/18 06:10: PT 31.2 H, INR 3.0 12/03/18 06:10: Sodium 145, Potassium 4.0, Chloride 110 H, Carbon Dioxide 29.0, Anion Gap 6, BUN 30 H, Creatinine 1.24, Est GFR (MDRD) Af Amer 74, Est GFR (MDRD) Non-Af 61, BUN/Creatinine Ratio 24.2 H, Glucose 151 H, Calcium 8.1 L, Triglycerides 207 H, Cholesterol 135, LDL Cholesterol 59, VLDL Cholesterol 41 H, HDL Cholesterol 35 L Rhythm: EKG: As above ECHO: Pending Stress Test: Pending Cardiac Cath: PCI: CT Surgery: Holter monitor: EPS: PPM: CXR: Reviewed chest x-ray, no evidence of pulmonary edema. Chest CT Scan: Assessment/Plan 1. Ischemic cardiomyopathy: Patient reports that he had chest pain ever since he had his shock about 2 weeks ago for sinus tachycardia. His pain is constant, dull, midsternal, and does not get better or worse with exertion, or eating. Superimposed on this patient has noted worsening shortness of breath, dyspnea on exertion and lower extremity edema. He also admits to dietary indiscretion. At this point I would recommend a 1500 cc fluid restriction, IV Lasix 40 mg twice daily for gentle diuresis, Terry bandages to assist with venous return, and continuing his baby aspirin and Plavix. His most recent stress test in 2018 was negative for inducible ischemia of the anterior territory or of the lateral territory where the patient was found to have coronary disease by catheterization in 2017. At that time these 2 areas were evaluated with FFR in the Machine [employer], and apparently found to be negative. At this point I would also hold his Coumadin in anticipation for possible catheterization on Thursday morning. His INR is 3.0, and may require vitamin K tomorrow. I recommend a catheterization order to assess whether his coronary d isease has worsened since 2017. In anticipation of this, I would recommend he undergo a dobutamine echocardiogram to determine if he has any evidence of anterior or lateral ischemia that may assist us in percutaneous corrective measures. 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 I also recommend the patient undergo a repeat 2D echo with Doppler to determine if he has any pericardial fluid that may explain his constant dull chest pain. The pain does not appear to be pleuritic in nature nor does it worsen with recumbency. Would also recommend continuing amiodarone 200 mg p.o. daily to assist with sinus tachycardia and ventricular arrhythmias. Also recommend continuing with no zine for microvascular disease. 2. Hyperlipidemia: Continue fenofibrate. 3. Thank you very much for the opportunity to participate in the cardiac care of your patient. Consultation time place between 830 and 9:15 AM.
--- NOTE | 2018-12-03 10:02 | PCM.PROGNOTE ---
Patient Problems: Active and Suspected Problems (Last Updated 12/03/18 @ 10:01 by Mikey Mitchell MD) Chest pain (Acute) Subjective: Chief complaint: Follow-up after admission for chest pain, probable mild acute on chronic systolic CHF. Patient seen and examined. No acute events overnight. He did mention that he had an episode of chest pain last night and he was short of breath. This morning, denies any more chest pain, no shortness of breath. His vital signs are stable. - Physical Exam General: Alert, Oriented x3, Cooperative, No apparent distress HEENT: Atraumatic, PERRLA, EOMI, Normocephalic Oral: Moist Mucosa, No Gingival or Mucosal Lesions/ Ulcerations Neck: Supple, No JVD, Negative Carotid Bruits, Trachea Midline, Thyroid Normal Size and Texture Lungs: Clear to auscultation, Normal air movement, No rhonchi, No wheeze, No rales, Diminished Cardiovascular: Regular rate, Regular Rhythm, Normal S1, Normal S2, PMI Normal Abdomen: Bowel Sounds Present, Soft, Non Tender, Non-Distended, No Hepato-splenomegaly Extremities: No clubbing, No cyanosis, Edema - Trace edema, dry skin,. Skin: No rashes, No breakdown Lymphatic: No Cervical, Supraclavicular, or Inguinal Adenopathy Neurological: Cranial nerves II-XII grossly intact, Motor Exam 5/5 strength throughout Psych/Mental Status: Normal Affect, Appropriate, Alert and oriented to time, place, person, mood and affect Vital Signs Temp Pulse Resp BP Pulse Ox 98.3 F 59 L 16 124/71 H 98 12/03/18 09:50 12/03/18 09:50 12/03/18 09:50 12/03/18 09:50 12/03/18 09:50 Oxygen Flow Rate (L/min) 2 Oxygen Delivery Method Room Air Weight: 258 lb 11.2 oz Body Mass Index (BMI) 39.3 Finger Stick Blood Glucose 180 Intake and Output for Last 24 Hours 12/01/18 12/02/18 12/03/18 23:59 23:59 23:59 Intake Total 435 / 435 Output Total 200 / 200 Balance 235 / 235 Laboratory Tests Past 24 Hrs 12/02/18 12/02/18 12/02/18 17:21 17:21 17:21 WBC 7.0 RBC 4.28 L Hgb 13.1 Hct 38.3 L MCV 89.5 MCH 30.6 MCHC 34.2 RDW Std Deviation 46.5 H RDW Coeff of [place] 14.3 Plt Count 156 MPV 9.9 Immature Gran % (Auto) 0.600 Neut % (Auto) 66.6 Lymph % (Auto) 17.8 L [place] % (Auto) 9.5 Eos % (Auto) 4.8 Baso % (Auto) 0.7 Absolute Neuts (auto) 4.7 Absolute Lymphs (auto) 1.25 Nucleated RBC % 0 ESR PT 27.8 H INR 2.6 Sodium 143 Potassium 4.1 Chloride 107 Carbon Dioxide 29.0 Anion Gap 7 BUN 37 H Creatinine 1.66 H Estim Creat Clear Calc 38.34 Est GFR (MDRD) Af Amer 53 L Est GFR (MDRD) Non-Af 43 L BUN/Creatinine Ratio 22.3 H Glucose 136 H Calcium 8.6 Troponin I 0.022 C-React Prot High Sens B-Natriuretic Peptide Triglycerides Cholesterol LDL Cholesterol VLDL Cholesterol HDL Cholesterol 12/02/18 12/02/18 12/02/18 17:21 17:21 18:25 WBC RBC Hgb Hct MCV MCH MCHC RDW Std Deviation RDW Coeff of [place] Plt Count MPV Immature Gran % (Auto) Neut % (Auto) Lymph % (Auto) [place] % (Auto) Eos % (Auto) Baso % (Auto) Absolute Neuts (auto) Absolute Lymphs (auto) Nucleated RBC % ESR < 1 PT INR Sodium Potassium Chloride Carbon Dioxide Anion Gap BUN Creatinine Estim Creat Clear Calc Est GFR (MDRD) Af Amer Est GFR (MDRD) Non-Af BUN/Creatinine Ratio Glucose Calcium Troponin I C-React Prot High Sens 1.87 B-Natriuretic Peptide 28.3 Triglycerides Cholesterol LDL Cholesterol VLDL Cholesterol HDL Cholesterol 12/02/18 12/02/18 12/03/18 20:25 22:56 06:10 WBC RBC Hgb Hct MCV MCH MCHC RDW Std Deviation RDW Coeff of [place] Plt Count MPV Immature Gran % (Auto) Neut % (Auto) Lymph % (Auto) [place] % (Auto) Eos % (Auto) Baso % (Auto) Absolute Neuts (auto) Absolute Lymphs (auto) Nucleated RBC % ESR PT 31.2 H INR 3.0 Sodium Potassium Chloride Carbon Dioxide Anion Gap BUN Creatinine Estim Creat Clear Calc Est GFR (MDRD) Af Amer Est GFR (MDRD) Non-Af BUN/Creatinine Ratio Glucose Calcium Troponin I 0.016 0.026 C-React Prot High Sens B-Natriuretic Peptide Triglycerides Cholesterol LDL Cholesterol VLDL Cholesterol HDL Cholesterol 12/03/18 06:10 WBC RBC Hgb Hct MCV MCH MCHC RDW Std Deviation RDW Coeff of [place] Plt Count MPV Immature Gran % (Auto) Neut % (Auto) Lymph % (Auto) [place] % (Auto) Eos % (Auto) Baso % (Auto) Absolute Neuts (auto) Absolute Lymphs (auto) Nucleated RBC % ESR PT INR Sodium 145 Potassium 4.0 Chloride 110 H Carbon Dioxide 29.0 Anion Gap 6 BUN 30 H Creatinine 1.24 Estim Creat Clear Calc 51.33 Est GFR (MDRD) Af Amer 74 Est GFR (MDRD) Non-Af 61 BUN/Creatinine Ratio 24.2 H Glucose 151 H Calcium 8.1 L Troponin I C-React Prot High Sens B-Natriuretic Peptide Triglycerides 207 H Cholesterol 135 LDL Cholesterol 59 VLDL Cholesterol 41 H HDL Cholesterol 35 L POC Glucose 12/03/18 12/02/18 08:30 23:27 POC Glucose 206 H 189 H Clinical Impression(s) from Imaging Studies Chest X-Ray 12/02/18 17:28 IMPRESSION: No acute cardiopulmonary disease. Electronically Signed: Agus Osborne MD at 17:47 EDT , Service support , Medical Necessity - Tobacco Use Smoking Status: Former smoker Assessment/Plan All Active Problems (Last Updated 12/03/18 @ 10:01 by Mikey Mitchell MD) Chest pain (Acute) This is a 73 years old male patient presented to the emergency room because of chest pain as well as shortness of breath and mild bilateral leg edema and he is being admitted for evaluation and also for probable mild acute on chronic systolic CHF. #1 chest pain: EKG reviewed normal sinus rhythm, low voltage, nonspecific ST, T wave changes and no evidence of acute ST elevation. Troponin was negative x3. Chest x-ray showed no acute findings. 2D echocardiogram reviewed, revealed ejection fraction of 45%. Patient is on aspirin, statins, beta-blockers, Plavix and lisinopril. Cardiology consulted and plan for cardiac catheterization Thursday morning. Also planning for stress echocardiogram. #2 probable mild acute on chronic systolic CHF: Started on IV Lasix, maintained on Coreg, Aldactone and lisinopril. Patient did report exertional shortness of breath and mild hyperlipidemia. His BNP was not elevated. Chest x-ray reviewed as above. Plan to continue IV diuresis. #3 ischemic cardiomyopathy/chronic CHF/status post ICD: He is on IV Lasix, continued on Coreg, Aldactone, nitrate and lisinopril. Plan for cardiac catheterization on Thursday. #4 CAD status post PCI: Plan as above, continue aspirin, statins, beta-blockers, nitrates and NIYA inhibitors. #5 paroxysmal atrial flutter: At this time, sinus rhythm, rate is controlled. Continue Coreg for rate control, Coumadin is 1.3. Coumadin held as patient is going for heart cath on Thursday. #6 type 2 diabetes mellitus: Blood sugar under fair control, continue Humalog 3 times daily and sliding scale. #7 hypertension: Blood pressure stable, continue also by mononitrate, lisinopril and Coreg. #8 hyperlipidemia: Continue statins. #9 DVT prophylaxis: INR was 3. This note was generated with [employer] dictation software. It may contain incorrect words, spelling, and punctuation that were not noted in checking the note before signing. Code Visit OBSV E&M: 13161 Subsequent observation care L2
--- NOTE | 2018-12-03 10:17 | STEWCON_ITS ---
Reason For Study: CHEST PAIN Stress Results Protocol: Dobutamine with definity Maximum Predicted HR: 147 bpm Target HR: 125 bpm % Maximum Predicted HR: 96 % DurationHeart Rate Stage (mm:ss) (bpm) BP Dose Comment BASELINE 61 135/77 3 CC DEFINITY STAGE 1 3:00 54 134/7610.002 CC DEFINITY STAGE 2 3:00 88 160/8320.00 STAGE 3 5:06 141 138/88887.003CC DEFINITY,CHEST ACHING LEFT SIDE, FATIGUED FEELING RECOVERY 85 130/89 CHEST DISCOMFORT BETTER,2CC DEFINITY Stress Duration: 11:06 mm:ss Maximum Stress HR: 141 bpm Baseline Echocardiogram Findings The estimated ejection fraction is 45 %. Stress Echo Wall motion Data Resting WM Intermediate WM Stress WM Resting Wall Motion Wall Motion Stress Posterior-Basal: Akinetic. No regional wall motion Infero-Basal: Severely abnormalities noted. Hypokinetic. EKG Data The baseline ECG displays normal sinus rhythm. The patient was titrated from 10 mcg to a maximun of 30 mcg of dobutamine during the stress. The maximum heart rate attained was 142 beats per minute. This was 96% of maximum predicted heart rate. During dobutamine infusion, there were no ST or T wave changes noted to suggest ischemia. Interpretation Summary The estimated ejection fraction is 45 %. Normal, adequate, dobutamine echocardiogram. Negative for ischemia by EKG and echocardiographic criteria. Baseline atypical chest pain at rest which did not appreciably worsen during infusion. Baseline inferior posterior hypokinesis/akinesis which did not appear to improve with dobutamine. Final LVEF is 55%. Decreased sensitivity due to poor echo windows requiring Definity agent. Rare PVCs noted. Appropriate blood pressure response to dobutamine. Test terminated due to attainment target heart rate and chest discomfort which was dissimilar from his baseline chest pain. The study was technically difficult. Contrast injection was performed. Ordering Physician: Ramiro Esquivel Referring Physician: Ramiro Esquivel MD Performed By: Rosana Rios, EMMA, RVT
[2018-12-03 13:06] LABS: Bedside Glucose 201 mg/dL (70-110)
[2018-12-03] MEDS: 0.9% NaCl Peripheral Flush Adult/Peds IV ×2 (14:37→17:07)
[2018-12-03] MEDS: Ondansetron 4 MG/2 ML Vial IV (14:37)
[2018-12-03 14:56] LABS: Bedside Glucose 137 mg/dL (70-110)
[2018-12-03] MEDS: Furosemide 40 MG/4 ML Vial IV (17:10)
[2018-12-03 17:30] LABS: Bedside Glucose 98 mg/dL (70-110)
[2018-12-03] MEDS: Acetaminophen 325 MG Tablet 650 MG PO (21:34)
[2018-12-03] MEDS: Atorvastatin Calcium 80 MG Tablet PO (21:35)
[2018-12-03] MEDS: Latanoprost 0.005% 1 Bottle 1 DRP EACH EYE (21:36)
[2018-12-03] MEDS: Pramipexole Di-HCl 0.125 MG Tablet PO (21:36)
--- NOTE | 2018-12-03 21:37 | EKG12_ITS ---
Test Reason : CP Blood Pressure : / mmHG Vent. Rate : 053 BPM Atrial Rate : 053 BPM P-R Int : 202 ms QRS Dur : 100 ms QT Int : 464 ms P-R-T Axes : 052 007 052 degrees QTc Int : 435 ms Sinus bradycardia Inferior infarct , age undetermined T wave abnormality, consider anterior ischemia Abnormal ECG Confirmed by KATH GARCIA ([id number]), science editor IRIS TUTTLE ([id number]) on 12/14/2018 1:02:58 PM Referred By: Confirmed By:KATH GARCIA
--- NOTE | 2018-12-03 21:38 | NURSING ---
Pt BP checked manually, 83/55. Had patient sit at edge of bed to use urinal. Once back in bed, c/o L chest pain, non radiating, not diaphoretic. EKG ordered. Hesitant to give nitro d/t low BP. PRN tylenol passed. Will monitor.
[2018-12-03 22:40] LABS: Bedside Glucose 107 mg/dL (70-110)
[2018-12-03] MEDS: Insulin NPH Human 100 UNITS/ML PEN 20 UNITS SC (22:45)
[2018-12-04] VITALS (13 sets, daily range): BP systolic 88–113; BP diastolic 52–71; PULSE 48–63; RESP 14–17; TEMP 36.4–36.8; O2SAT 94–97
[2018-12-04 05:53] LABS: International Normalized Ratio 2.7; Prothrombin Time (Protime)PT. 28.9 SECONDS (11.7-14.9)
[2018-12-04 06:07] LABS: Anion Gap 8 (5-15); BUN 30 mg/dL (7-18); BUN/Creat Ratio 23.1 RATIO (10-20); Calcium,Total 8.3 mg/dL (8.5-10.1); Chloride 108 mmol/L (98-107); EST Glomerular Filtration Rate 58 mL/min (>60); Est Glom Filt Rate - Afr Amer 70 mL/min (>60); Estimated Creatinine Clearance 48.96 ml/min; Glucose 155 mg/dL (74-106); Potassium 4.1 mmol/L (3.5-5.1); Sodium Level 145 mmol/L (136-145)
[2018-12-04 07:36] LABS: Bedside Glucose 155 mg/dL (70-110)
[2018-12-04] MEDS: Insulin Lispro 100 UNIT/ML INSULN.PEN SC ×3 (08:13→17:13)
[2018-12-04] MEDS: Insulin Lispro 100 UNIT/ML INSULN.PEN 20 UNIT SC ×3 (08:14→17:13)
[2018-12-04] MEDS: Spironolactone 25 MG Tablet PO (08:16)
[2018-12-04] MEDS: Gabapentin 300 MG Capsule PO ×3 (08:17→17:12)
[2018-12-04] MEDS: Fenofibrate 145 MG Tablet PO (08:17)
[2018-12-04] MEDS: Insulin NPH Human 100 UNITS/ML PEN 32 UNITS SC ×2 (08:17→21:25)
[2018-12-04] MEDS: Aspirin E.C. 81 MG Tablet PO (08:17)
--- NOTE | 2018-12-04 08:31 | PN_ITS ---
Patient Problems: Active and Suspected Problems (Last Updated 12/03/18 @ 10:01 by Mikey Mitchell MD) Chest pain (Acute) Subjective: Chief complaint: Follow-up after admission for chest pain, probable mild acute on chronic systolic CHF. Patient seen and examined. No acute events overnight. He mentioned that he had an episode of chest pain last night with mild shortness of breath. This morning, no more chest pain. His vital signs are stable. - Physical Exam General: Alert, Oriented x3, Cooperative, No apparent distress HEENT: Atraumatic, PERRLA, EOMI, Normocephalic Oral: Moist Mucosa, No Gingival or Mucosal Lesions/ Ulcerations Neck: Supple, No JVD, Negative Carotid Bruits, Trachea Midline, Thyroid Normal Size and Texture Lungs: Clear to auscultation, Normal air movement, No rhonchi, No wheeze, No rales, Diminished Cardiovascular: Regular rate, Regular Rhythm, Normal S1, Normal S2, PMI Normal Abdomen: Bowel Sounds Present, Soft, Non Tender, Non-Distended, No Hepato- splenomegaly Extremities: No clubbing, No cyanosis, Edema - Trace edema. Skin: No rashes, No breakdown Lymphatic: No Cervical, Supraclavicular, or Inguinal Adenopathy Neurological: Cranial nerves II-XII grossly intact, Neuro grossly intact Psych/Mental Status: Normal Affect, Appropriate, Alert and oriented to time, place, person, mood and affect Vital Signs Temp Pulse Resp BP Pulse Ox 97.7 F L 60 16 102/60 95 12/04/18 07:59 12/04/18 07:59 12/04/18 07:59 12/04/18 07:59 12/04/18 07:59 Oxygen Flow Rate (L/min) 2 Oxygen Delivery Method Room Air Weight: 258 lb 11.188 oz Body Mass Index (BMI) 39.3 Finger Stick Blood Glucose 180 Orthostatic Vital Signs Start: 12/03/18 14:51 Freq: q24h Status: Active Protocol: Activity Type Activity Date Activity User E-Sign Co-Sign Detail Recorded Client Recorded Date Recorded By Document 12/03/18 14:51 EN [id number] 12/03/18 14:54 EN 12/03/18 14:51 Orthostatic Vitals Standing -Blood Pressure (90/60-120/80) 109/67 -Extremity Use Left Arm Sitting -Blood Pressure (90/60-120/80) 110/68 -Extremity Use Left Arm Lying -Blood Pressure (90/60-120/80) 106/71 -Extremity Use Left Arm Intake and Output for Last 24 Hours 12/02/18 12/03/18 12/04/18 23:59 23:59 23:59 Intake Total 1371 / 1371 Output Total 2550 / 2550 400 / 400 Balance -1179 / -1179 -400 / -400 Laboratory Tests Past 24 Hrs 12/04/18 12/04/18 05:30 05:30 PT 28.9 H INR 2.7 Sodium 145 Potassium 4.1 Chloride 108 H Carbon Dioxide 29.0 Anion Gap 8 BUN 30 H Creatinine 1.30 Estim Creat Clear Calc 48.96 Est GFR (MDRD) Af Amer 70 Est GFR (MDRD) Non-Af 58 L BUN/Creatinine Ratio 23.1 H Glucose 155 H Calcium 8.3 L POC Glucose 12/04/18 12/03/18 12/03/18 07:30 21:33 17:09 POC Glucose 155 H 107 98 12/03/18 12/03/18 12/03/18 14:49 12:49 08:30 POC Glucose 137 H 201 H 206 H Medical Necessity - Tobacco Use Smoking Status: Former smoker Assessment/Plan All Active Problems (Last Updated 12/03/18 @ 10:01 by Mikey Mitchell MD) Chest pain (Acute) This is a 73 years old male patient presented to the emergency room because of chest pain as well as shortness of breath and mild bilateral leg edema and he is being admitted for evaluation and also for probable mild acute on chronic systolic CHF. #1 chest pain: EKG reviewed normal sinus rhythm, low voltage, nonspecific ST, T wave changes and no evidence of acute ST elevation. Troponin was negative x3. Chest x-ray showed no acute findings. 2D echocardiogram reviewed, revealed ejection fraction of 45%. Patient is on aspirin, statins, beta-blockers, Plavix and lisinopril. Stress echocardiogram revealed normal, adequate dobutamine echocardiogram which was negative for ischemia by EKG and echocardiographic criteria, ejection fraction was 45%. Cardiology on the case and plan for cardiac catheterization Thursday morning. #2 probable mild acute on chronic systolic CHF: He is on IV Lasix, maintained on Coreg, Aldactone and lisinopril. 2D echocardiogram revealed ejection fraction of 45%. BUN and creatinine remained stable. Cardiology on the case. #3 ischemic cardiomyopathy/chronic CHF/status post ICD: He is on IV Lasix, continued on Coreg, Aldactone, nitrate and lisinopril. Plan for cardiac catheterization on Thursday. #4 CAD status post PCI: Plan as above, continue aspirin, statins, beta-blockers, nitrates and NIYA inhibitors. #5 paroxysmal atrial flutter: At this time, sinus rhythm, rate is controlled. Continue Coreg for rate control, Coumadin is 2.7. Coumadin held as patient is going for heart cath on Thursday. #6 type 2 diabetes mellitus: Blood sugar under fair control, continue Humalog 3 times daily and sliding scale. #7 hypertension: Blood pressure stable, continue also by mononitrate, lisinopril and Coreg. #8 hyperlipidemia: Continue statins. #9 DVT prophylaxis: INR was 2.7. This note was generated with [employer] dictation software. It may contain incorrect words, spelling, and punctuation that were not noted in checking the note before signing. Code Visit Inpatient E&M: 91055 Subs Hosp L2
--- NOTE | 2018-12-04 10:18 | PCM.PN.CARD ---
Subjectve: Patient doing fairly well this morning, still with constant chest pain which is improved with Tylenol. No 24-hour events. Telemetry showed normal sinus rhythm/sinus bradycardia. Not negative urine output about 1500 cc since admission. Objective: Vital Signs Temp Pulse Resp BP Pulse Ox 97.7 F L 60 16 102/60 95 12/04/18 07:59 12/04/18 07:59 12/04/18 07:59 12/04/18 07:59 12/04/18 07:59 Oxygen Flow Rate (L/min) 2 Oxygen Delivery Method Room Air Weight: 258 lb 11.188 oz Body Mass Index (BMI) 39.3 Finger Stick Blood Glucose 180 Orthostatic Vital Signs Start: 12/03/18 14:51 Freq: q24h Status: Active Protocol: Activity Type Activity Date Activity User E-Sign Co-Sign Detail Recorded Client Recorded Date Recorded By Document 12/03/18 14:51 EN [id number] 12/03/18 14:54 EN 12/03/18 14:51 Orthostatic Vitals Standing -Blood Pressure (90/60-120/80) 109/67 -Extremity Use Left Arm Sitting -Blood Pressure (90/60-120/80) 110/68 -Extremity Use Left Arm Lying -Blood Pressure (90/60-120/80) 106/71 -Extremity Use Left Arm Intake and Output for Last 24 Hours 12/02/18 12/03/18 12/04/18 23:59 23:59 23:59 Intake Total 1371 / 1371 Output Total 2550 / 2550 400 / 400 Balance -1179 / -1179 -400 / -400 General: Awake, Alert, Oriented x 3 HEENT: PERRL, EOMI, Sclera Non Icteric Neck: Supple, Good ROM, No Lymph Node Enlargement Lungs: Clear to auscultation Cardiovascular: Regular Rhythm, Normal S1, Normal S2, No Murmurs, No Rubs, No Gallops Vascular: No Carotid Bruits, Normal Femoral Pulses, Normal Radial Pulses, Normal Dorsalis Pedal Pulse, Normal Posterior Tibial Pulses Abdomen: Bowel Sounds Present, Soft, Non Tender, No HSM, No Organomegaly Extremities: No Cyanosis, No Clubbing, No edema Neurological: No Focal Motor or Sensory Deficit 12/04/18 05:30: PT 28.9 H, INR 2.7 12/04/18 05:30: Sodium 145, Potassium 4.1, Chloride 108 H, Carbon Dioxide 29.0, Anion Gap 8, BUN 30 H, Creatinine 1.30, Est GFR (MDRD) Af Amer 70, Est GFR (MDRD) Non-Af 58 L, BUN/Creatinine Ratio 23.1 H, Glucose 155 H, Calcium 8.3 L Rhythm: EKG: ECHO: Stress Test: Stress echocardiogram yesterday demonstrated akinetic inferior/posterior wall, with no overt evidence of of anterior ischemia. The patient had some dull chest pain however which is dissimilar from his chest pain he was admitted for. Cardiac Cath: PCI: CT Surgery: Holter monitor: EPS: PPM: CXR: Chest CT Scan: Medical Necessity - Tobacco Use Smoking Status: Former smoker Assessment/Plan 1. Ischemic cardiomyopathy: Patient reports that he had chest pain ever since he had his shock about 2 weeks ago for sinus tachycardia. His pain is constant, dull, midsternal, and does not get better or worse with exertion, or eating. Superimposed on this patient has noted worsening shortness of breath, dyspnea on exertion and lower extremity edema. He also admits to dietary indiscretion. At this point I would recommend a 1500 cc fluid restriction, recommend increasing IV Lasix to 80 mg twice daily for gentle diuresis, Terry bandages to assist with venous return, and continuing his baby aspirin and Plavix. His most recent stress test in 2018 was negative for inducible ischemia of the anterior territory or of the lateral territory where the patient was found to have coronary disease by catheterization in 2017. At that time these 2 areas were evaluated with FFR in the [employer], and apparently found to be negative. 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 At this point I would also hold his Coumadin in anticipation for possible catheterization on Thursday morning. His INR is now 2.7, and may require vitamin K tomorrow. I recommend a catheterization order to assess whether his coronary disease has worsened since 2017. In anticipation of this, patient has been loaded with Plavix x1, and now is on Plavix 75 mg p.o. daily. 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 Patient underwent an echocardiogram on 12/03/2018 with the following results: Moderately dilated left ventricle. The estimated ejection fraction is 45 %. Stage 1 diastolic dysfunction. Moderately dilated right ventricle. Mild global right ventricular systolic dysfunction. Mild concentric left ventricular hypertrophy. Mild (1+) tricuspid valve insufficiency. Right ventricular systolic pressure estimated to be 27 mmHg. Compared to echo report dated 07/06/2017, no appreciable changes noted. Would also recommend continuing amiodarone 200 mg p.o. daily to assist with sinus tachycardia and ventricular arrhythmias. Also recommend continuing with no zine for microvascular disease. 2. Hyperlipidemia: Continue fenofibrate. 3. Thank you very much for the opportunity to participate in the cardiac care of your patient. We will recheck INR tomorrow. Code Visit Inpatient E&M: 11963 Subs Hosp L2
[2018-12-04] MEDS: Isosorbide Mononitrate 30 MG Tablet PO (10:39)
[2018-12-04] MEDS: Lisinopril 20 MG Tablet PO (10:39)
[2018-12-04] MEDS: Ranolazine 500 MG Tablet 1000 MG PO ×2 (10:39→21:24)
[2018-12-04] MEDS: Pantoprazole Sodium 40 MG Tablet PO (10:39)
[2018-12-04] MEDS: Carvedilol 6.25 MG Tablet PO ×2 (10:39→21:24)
[2018-12-04] MEDS: Clopidogrel Bisulfate 75 MG Tablet PO (10:39)
[2018-12-04] MEDS: Amiodarone 200 MG Tablet PO (10:39)
[2018-12-04 10:51] LABS: Bedside Glucose 194 mg/dL (70-110)
[2018-12-04 16:26] LABS: Bedside Glucose 189 mg/dL (70-110)
--- NOTE | 2018-12-04 16:49 | CM.UR ---
RN CM Assessment Met face to face with patient around 2pm. Introduced role of RN CM to patient. Patient is alert and able to participate in RN CM Assessment. Care providers, pharmacy, and demographics verified. No family at bedside. States that his daughter told him to sign up for Medicaid but he doesn't think he'll qualify for it. States that he did apply for Medication assistance and didn't qualify. Offered to have SW come talk to him and he was agreeable. Presentation: Chest pain Admit Dx: afib, heart failure PCP: Stephy Specialists: hal Preferred Pharmacy: [facility] Insurance: [facility] and [facility] Rx Benefit: yes states pays the first $1000 then no cost to him after that. states he takes ranexa that is about $200 per month and insulin is $76 per bottle. LNOK: Ila, LW/HPOA: Has living will but no HPOA. Declined additional information. Living Arrangements: 1 story with . 2 steps to get in. Denies any accessibility issues. ADL?s: Independent. Transportation: drives self. DME: Walker, Cpap DME co: [employer] for cpap supplies. HHC: None SNF: None Goal: Return home. DC PLAN: Home, NN. Christina Reeves RN, CCM.
[2018-12-04] MEDS: Furosemide 100 MG/10 ML Vial 80 MG IV (17:12)
[2018-12-04] MEDS: 0.9% NaCl Peripheral Flush Adult/Peds IV (17:12)
[2018-12-04] MEDS: Latanoprost 0.005% 1 Bottle 1 DRP EACH EYE (21:24)
[2018-12-04] MEDS: Atorvastatin Calcium 80 MG Tablet PO (21:26)
[2018-12-04] MEDS: Pramipexole Di-HCl 0.125 MG Tablet PO (21:26)
[2018-12-04 22:46] LABS: Bedside Glucose 142 mg/dL (70-110)
[2018-12-05] VITALS (13 sets, daily range): BP systolic 98–120; BP diastolic 54–75; PULSE 54–65; RESP 16–17; TEMP 36.4–36.7; O2SAT 93–97
[2018-12-05] MEDS: Acetaminophen 325 MG Tablet 650 MG PO (01:05)
--- NOTE | 2018-12-05 01:06 | EKG12_ITS ---
Test Reason : CP Blood Pressure : / mmHG Vent. Rate : 058 BPM Atrial Rate : 058 BPM P-R Int : 238 ms QRS Dur : 156 ms QT Int : 450 ms P-R-T Axes : -07 000 090 degrees QTc Int : 441 ms Sinus bradycardia with 1st degree A-V block Right bundle branch block Inferior infarct , age undetermined Abnormal ECG When compared with ECG of 03-DEC-2018 21:41, MANUAL COMPARISON REQUIRED, DATA IS UNCONFIRMED Confirmed by KATH GARCIA ([id number]), managing editor IRIS TUTTLE ([id number]) on 12/14/2018 1:09:35 PM Referred By: DR YEUNG Confirmed By:KATH GARCIA
--- NOTE | 2018-12-05 01:07 | NURSING ---
PATIENT CALLED OUT FOR SOB. WHEN ENTERED ROOM, C/O CHEST PAIN 7/10 L MID CHEST. NONRADIATING. NOT DIAPHORECTIC. 93% RA, BP 98/60. PATIENT REQUESTING TYLENOL D/T THIS WORKING OVERNIGHT 12/04/18 WHEN EXPERIENCING CHEST PAIN. WILL MONITOR.
[2018-12-05 02:06] LABS: Bedside Glucose 80 mg/dL (70-110)
[2018-12-05 02:06] LABS: Bedside Glucose 100 mg/dL (70-110)
[2018-12-05 05:54] LABS: International Normalized Ratio 2.2; Prothrombin Time (Protime)PT. 24.4 SECONDS (11.7-14.9)
--- NOTE | 2018-12-05 08:01 | PN_ITS ---
Patient Problems: Active and Suspected Problems (Last Updated 12/03/18 @ 10:01 by Mikey Mitchell MD) Chest pain (Acute) Subjective: Chief complaint: Follow-up after admission for chest pain, probable mild acute on chronic systolic CHF. And examined. No acute events overnight. Again, he mentioned that he had an episode of chest pain yesterday and he was nauseated. He reported low-grade fever although no fever documented in his chart. He developed a small spot in his belly which looks like a blister, not sure what is it. His vital signs are stable - Physical Exam General: Alert, Oriented x3, Cooperative, No apparent distress HEENT: Atraumatic, PERRLA, EOMI, Normocephalic Oral: Moist Mucosa, No Gingival or Mucosal Lesions/ Ulcerations Neck: Supple, No JVD, Negative Carotid Bruits, Trachea Midline, Thyroid Normal Size and Texture Lungs: Clear to auscultation, Normal air movement, No rhonchi, No wheeze, No rales, Diminished Cardiovascular: Regular rate, Regular Rhythm, Normal S1, Normal S2, PMI Normal Abdomen: Bowel Sounds Present, Soft, Non Tender, Non-Distended, No Hepato- splenomegaly Extremities: No clubbing, No cyanosis, No edema Skin: No rashes, No breakdown Lymphatic: No Cervical, Supraclavicular, or Inguinal Adenopathy Neurological: Cranial nerves II-XII grossly intact, Neuro grossly intact Psych/Mental Status: Normal Affect, Appropriate Vital Signs Temp Pulse Resp BP Pulse Ox 97.5 F L 54 L 16 98/54 L 93 12/05/18 03:23 12/05/18 07:11 12/05/18 03:23 12/05/18 03:23 12/05/18 07:35 Oxygen Flow Rate (L/min) 2 Oxygen Delivery Method Room Air Weight: 257 lb 7.999 oz Body Mass Index (BMI) 39.3 Finger Stick Blood Glucose 180 Orthostatic Vital Signs Start: 12/03/18 14:51 Freq: q24h Status: Active Protocol: Activity Type Activity Date Activity User E-Sign Co-Sign Detail Recorded Client Recorded Date Recorded By Document 12/03/18 14:51 EN [id number] 12/03/18 14:54 EN 12/03/18 14:51 Orthostatic Vitals Standing -Blood Pressure (90/60-120/80 mm Hg) 109/67 -Extremity Use Left Arm Sitting -Blood Pressure (90/60-120/80 mm Hg) 110/68 -Extremity Use Left Arm Lying -Blood Pressure (90/60-120/80 mm Hg) 106/71 -Extremity Use Left Arm Intake and Output for Last 24 Hours 12/03/18 12/04/18 12/05/18 23:59 23:59 23:59 Intake Total 1371 / 1371 858 / 858 120 / 120 Output Total 2550 / 2550 1400 / 1400 Balance -1179 / -1179 -542 / -542 120 / 120 Laboratory Tests Past 24 Hrs 12/05/18 05:25 PT 24.4 H INR 2.2 POC Glucose 12/05/18 12/05/18 12/04/18 02:02 01:36 21:22 POC Glucose 100 80 142 H 12/04/18 12/04/18 16:20 10:45 POC Glucose 189 H 194 H Medical Necessity - Tobacco Use Smoking Status: Former smoker Assessment/Plan All Active Problems (Last Updated 12/03/18 @ 10:01 by Mikey Mitchell MD) Chest pain (Acute) This is a 73 years old male patient presented to the emergency room because of chest pain as well as shortness of breath and mild bilateral leg edema and he is being admitted for evaluation and also for probable mild acute on chronic systolic CHF. #1 chest pain: Status post stress echocardiogram that was negative for ischemia. EKG reviewed normal sinus rhythm, low voltage, nonspecific ST, T wave changes and no evidence of acute ST elevation. Troponin was negative x3. Chest x-ray showed no acute findings. 2D echocardiogram reviewed, revealed ejection fraction of 45%. Patient is on aspirin, statins, beta-blockers, Plavix and lisinopril. Cardiology on the case and plan for cardiac catheterization tomorrow morning. #2 probable mild acute on chronic systolic CHF: Remained on IV Lasix, maintained on Coreg, Aldactone and lisinopril. 2D echocardiogram revealed ejection fraction of 45%. BUN and creatinine remained stable. Cardiology on the case. #3 ischemic cardiomyopathy/chronic CHF/status post ICD: He is on IV Lasix, continued on Coreg, Aldactone, nitrate and lisinopril. Plan for cardiac catheterization on Thursday. Plan to repeat BMP tomorrow morning. #4 CAD status post PCI: Plan as above, continue aspirin, statins, beta-blockers, nitrates and NIYA inhibitors. #5 paroxysmal atrial flutter: At this time, sinus rhythm, rate is controlled. Continue Coreg for rate control, Coumadin is 2.2. Coumadin held as patient is going for heart cath on Thursday. Plan: Vitamin K 10 mg subcu x1, repeat INR tomorrow morning #6 type 2 diabetes mellitus: Blood sugar under fair control, continue Humalog 3 times daily and sliding scale. #7 hypertension: Blood pressure stable, continue also by mononitrate, lisinopril and Coreg. #8 hyperlipidemia: Continue statins. #9 DVT prophylaxis: INR was 2.2. Will give vitamin K today. This note was generated with [employer] dictation software. It may contain incorrect words, spelling, and punctuation that were not noted in checking the note before signing. Code Visit Inpatient E&M: [id number] Subs Hosp L2
[2018-12-05 08:25] LABS: Bedside Glucose 195 mg/dL (70-110)
[2018-12-05] MEDS: Insulin Lispro 100 UNIT/ML INSULN.PEN SC ×2 (08:41→11:55)
[2018-12-05] MEDS: Insulin Lispro 100 UNIT/ML INSULN.PEN 20 UNIT SC ×3 (08:42→17:05)
[2018-12-05] MEDS: Gabapentin 300 MG Capsule PO ×3 (08:42→17:08)
[2018-12-05] MEDS: Aspirin E.C. 81 MG Tablet PO (08:42)
[2018-12-05] MEDS: Spironolactone 25 MG Tablet PO (08:42)
[2018-12-05] MEDS: Fenofibrate 145 MG Tablet PO (08:43)
[2018-12-05] MEDS: Phytonadione (Vit K) 10 MG/ML Ampul 5 MG SC (09:03)
--- NOTE | 2018-12-05 10:05 | PCM.PN.CARD ---
Subjectve: Patient reports feeling much better today, chest pain has almost completely resolved. Lower extremity edema has improved but not quite back to normal. Patient sitting in a chair no acute distress. Telemetry showed normal sinus rhythm. Objective: Vital Signs Temp Pulse Resp BP Pulse Ox 98.0 F 65 17 99/69 95 12/05/18 08:30 12/05/18 08:30 12/05/18 08:30 12/05/18 08:30 12/05/18 08:30 Oxygen Flow Rate (L/min) 2 Oxygen Delivery Method Room Air Weight: 257 lb 7.999 oz Body Mass Index (BMI) 39.3 Finger Stick Blood Glucose 180 Orthostatic Vital Signs Start: 12/03/18 14:51 Freq: q24h Status: Active Protocol: Activity Type Activity Date Activity User E-Sign Co-Sign Detail Recorded Client Recorded Date Recorded By Document 12/03/18 14:51 EN [id number] 12/03/18 14:54 EN 12/03/18 14:51 Orthostatic Vitals Standing -Blood Pressure (90/60-120/80) 109/67 -Extremity Use Left Arm Sitting -Blood Pressure (90/60-120/80) 110/68 -Extremity Use Left Arm Lying -Blood Pressure (90/60-120/80) 106/71 -Extremity Use Left Arm Intake and Output for Last 24 Hours 12/03/18 12/04/18 12/05/18 23:59 23:59 23:59 Intake Total 1371 / 1371 858 / 858 120 / 120 Output Total 2550 / 2550 1400 / 1400 Balance -1179 / -1179 -542 / -542 120 / 120 General: Awake, Alert, Oriented x 3 HEENT: PERRL, EOMI, Sclera Non Icteric Neck: Supple, Good ROM, No Lymph Node Enlargement Lungs: Clear to auscultation Cardiovascular: Regular Rhythm, Normal S1, Normal S2, No Murmurs, No Rubs, No Gallops Vascular: No Carotid Bruits, Normal Femoral Pulses, Normal Radial Pulses, Normal Dorsalis Pedal Pulse, Normal Posterior Tibial Pulses Abdomen: Bowel Sounds Present, Soft, Non Tender, No HSM, No Organomegaly Extremities: No Cyanosis, No Clubbing, Bilateral Edema +1 Neurological: No Focal Motor or Sensory Deficit 12/05/18 05:25: PT 24.4 H, INR 2.2 Rhythm: EKG: ECHO: Stress Test: Cardiac Cath: PCI: CT Surgery: Holter monitor: EPS: PPM: CXR: Chest CT Scan: Medical Necessity - Tobacco Use Smoking Status: Former smoker Assessment/Plan 1. Ischemic cardiomyopathy: Patient reports that he had chest pain ever since he had his shock about 2 weeks ago for sinus tachycardia. His pain is constant, dull, midsternal, and does not get better or worse with exertion, or eating. Superimposed on this patient has noted worsening shortness of breath, dyspnea on exertion and lower extremity edema. He also admits to dietary indiscretion. As of this morning, his chest pain has improved and continues to improve with Tylenol. At this point I would recommend a 1500 cc fluid restriction, recommend changing his IV Lasix to Lasix 40 mg p.o. twice daily, Terry bandages to assist with venous return, and continuing his baby aspirin and Plavix. His most recent stress test in 2018 was negative for inducible ischemia of the anterior territory or of the lateral territory where the patient was found to have coronary disease by catheterization in 2017. At that time these 2 areas were evaluated with FFR in the [employer] Art In[employer], and apparently found to be negative. 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 At this point I would also hold his Coumadin in anticipation for possible catheterization on Thursday morning. His INR is now 2.2, and agree with vitamin K today to get his INR below 1.6.. I recommend a catheterization order to assess whether his coronary disease has worsened since 2017. In anticipation of this, patient has been loaded with Plavix x1, and now is on Plavix 75 mg p.o. daily. 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 Patient underwent an echocardiogram on 12/03/2018 with the following results: Moderately dilated left ventricle. The estimated ejection fraction is 45 %. Stage 1 diastolic dysfunction. Moderately dilated right ventricle. Mild global right ventricular systolic dysfunction. Mild concentric left ventricular hypertrophy. Mild (1+) tricuspid valve insufficiency. Right ventricular systolic pressure estimated to be 27 mmHg. Compared to echo report dated 07/06/2017, no appreciable changes noted. Would also recommend continuing amiodarone 200 mg p.o. daily to assist with sinus tachycardia and ventricular arrhythmias. Also recommend continuing with Ranexa for microvascular disease. 2. Hyperlipidemia: Continue fenofibrate. 3. Thank you very much for the opportunity to participate in the cardiac care of your patient. We will recheck INR tomorrow. We will plan for left heart catheterization tomorrow morning. Code Visit Inpatient E&M: [id number] Subs Hosp L2
[2018-12-05] MEDS: Amiodarone 200 MG Tablet PO (10:47)
[2018-12-05] MEDS: Carvedilol 6.25 MG Tablet PO ×2 (10:47→20:51)
[2018-12-05] MEDS: Isosorbide Mononitrate 30 MG Tablet PO (10:48)
[2018-12-05] MEDS: Pantoprazole Sodium 40 MG Tablet PO (10:48)
[2018-12-05] MEDS: Ranolazine 500 MG Tablet 1000 MG PO ×2 (10:48→20:51)
[2018-12-05] MEDS: Clopidogrel Bisulfate 75 MG Tablet PO (10:48)
[2018-12-05] MEDS: Lisinopril 20 MG Tablet PO (10:48)
[2018-12-05] MEDS: Insulin NPH Human 100 UNITS/ML PEN 32 UNITS SC (10:49)
[2018-12-05 11:01] LABS: Bedside Glucose 207 mg/dL (70-110)
[2018-12-05] MEDS: 0.9% NaCl Peripheral Flush Adult/Peds IV (14:45)
[2018-12-05 16:56] LABS: Bedside Glucose 99 mg/dL (70-110)
[2018-12-05] MEDS: Furosemide 40 MG Tablet PO (17:08)
[2018-12-05] MEDS: Atorvastatin Calcium 80 MG Tablet PO (20:51)
[2018-12-05] MEDS: Pramipexole Di-HCl 0.125 MG Tablet PO (20:51)
[2018-12-05] MEDS: Latanoprost 0.005% 1 Bottle 1 DRP EACH EYE (20:51)
[2018-12-05 21:06] LABS: Bedside Glucose 71 mg/dL (70-110)
[2018-12-05 21:06] LABS: Bedside Glucose 64 mg/dL (70-110)
[2018-12-06] VITALS (15 sets, daily range): BP systolic 96–127; BP diastolic 50–78; PULSE 56–67; RESP 16–18; TEMP 36.4–36.6; O2SAT 93–98
[2018-12-06 05:28] LABS: International Normalized Ratio 1.7; Prothrombin Time (Protime)PT. 19.6 SECONDS (11.7-14.9)
[2018-12-06 05:34] LABS: Anion Gap 7 (5-15); BUN 37 mg/dL (7-18); BUN/Creat Ratio 26.4 RATIO (10-20); Calcium,Total 8.5 mg/dL (8.5-10.1); Chloride 106 mmol/L (98-107); EST Glomerular Filtration Rate 53 mL/min (>60); Est Glom Filt Rate - Afr Amer 64 mL/min (>60); Estimated Creatinine Clearance 45.46 ml/min; Glucose 145 mg/dL (74-106); Sodium Level 143 mmol/L (136-145)
--- NOTE | 2018-12-06 05:55 | EKG12_ITS ---
Test Reason : AM EKG Blood Pressure : / mmHG Vent. Rate : 057 BPM Atrial Rate : 057 BPM P-R Int : 216 ms QRS Dur : 152 ms QT Int : 468 ms P-R-T Axes : 001 000 040 degrees QTc Int : 455 ms Sinus bradycardia with 1st degree A-V block Right bundle branch block Inferior infarct , age undetermined Abnormal ECG When compared with ECG of 05-DEC-2018 01:12, MANUAL COMPARISON REQUIRED, DATA IS UNCONFIRMED Confirmed by KATH GARCIA ([id number]), book or script editor IRIS TUTTLE ([id number]) on 12/14/2018 1:10:18 PM Referred By: STEPHEN Confirmed By:KATH GARCIA
[2018-12-06] MEDS: Amiodarone 200 MG Tablet PO (06:38)
[2018-12-06] MEDS: Carvedilol 6.25 MG Tablet PO (06:38)
[2018-12-06] MEDS: Aspirin E.C. 81 MG Tablet PO (06:38)
[2018-12-06] MEDS: Clopidogrel Bisulfate 75 MG Tablet PO (06:38)
[2018-12-06] MEDS: Ranolazine 500 MG Tablet 1000 MG PO (06:38)
[2018-12-06] MEDS: Lisinopril 20 MG Tablet PO (06:38)
[2018-12-06] MEDS: Isosorbide Mononitrate 30 MG Tablet PO (06:39)
[2018-12-06 06:59] LABS: Absolute Lymphocyte Count 1.11 X10^3/uL (0.83-4.51); Absolute Neutrophil Count 3.6 X10^3/uL (2.0-7.7); Basophil# 0.04 X10^3/uL; Basophil% 0.7 % (0-1); Eosinophils% 5.4 % (0-5); Hematocrit 40.4 % (40-54); Hemoglobin 13.2 g/dL (13.0-16.5); Lymphocyte # 1.11 X10^3/ul (4.0); Mean Corp Hgb Conc 32.7 g/dL (32-36); Mean Corpuscular Hgb 29.6 pg (27.0-32.0); Mean Corpuscular Volume 90.6 fL (80-94); NRBC Flagged by Analyzer 0 % (0-5); Neutrophil # 3.57 X10^3/uL (2.7-7.7); Neutrophil % 64.5 % (47-70); Platelet Count 137 K/mm3 (150-450); RBC Distribution Width CV 14.2 % (11.6-14.6); RBC Distribution Width SD 47.2 fl (35.1-43.9); Red Blood Count 4.46 M/mm3 (4.6-6.2); White Blood Count 5.5 K/mm3 (4.4-11.0)
[2018-12-06 08:06] LABS: Bedside Glucose 150 mg/dL (70-110)
[2018-12-06] MEDS: 0.9% Normal Saline 1,000 ML 100 ML IV (09:36)
--- NOTE | 2018-12-06 09:41 | NURSING ---
Called report to Yeny ORTIZ in medical laboratory manager
--- NOTE | 2018-12-06 10:44 | PN.CARD_ITS ---
Subjectve: Patient seen and evaluated. Objective: Vital Signs Temp Pulse Resp BP Pulse Ox 97.7 F L 60 16 119/74 98 12/06/18 09:35 12/06/18 09:35 12/06/18 09:35 12/06/18 09:35 12/06/18 09:35 Oxygen Flow Rate (L/min) 2 Oxygen Delivery Method Room Air Weight: 252 lb 3.341 oz Body Mass Index (BMI) 39.3 Finger Stick Blood Glucose 180 Orthostatic Vital Signs Start: 12/03/18 14:51 Freq: q24h Status: Active Protocol: Activity Type Activity Date Activity User E-Sign Co-Sign Detail Recorded Client Recorded Date Recorded By Document 12/03/18 14:51 EN [id number] 12/03/18 14:54 EN 12/03/18 14:51 Orthostatic Vitals Standing -Blood Pressure (90/60-120/80) 109/67 -Extremity Use Left Arm Sitting -Blood Pressure (90/60-120/80) 110/68 -Extremity Use Left Arm Lying -Blood Pressure (90/60-120/80) 106/71 -Extremity Use Left Arm Intake and Output for Last 24 Hours 12/04/18 12/05/18 12/06/18 23:59 23:59 23:59 Intake Total 858 / 858 720 / 720 Output Total 1400 / 1400 2300 / 2300 600 / 600 Balance -542 / -542 -1580 / -1580 -600 / -600 General: Awake, Alert, Oriented x 3 HEENT: PERRL, EOMI, Sclera Non Icteric Neck: Supple, Good ROM, No Lymph Node Enlargement Lungs: Clear to auscultation Cardiovascular: Regular Rhythm, Normal S1, Normal S2, No Murmurs, No Rubs, No Gallops Vascular: No Carotid Bruits, Normal Femoral Pulses, Normal Radial Pulses, Normal Dorsalis Pedal Pulse, Normal Posterior Tibial Pulses Abdomen: Bowel Sounds Present, Soft, Non Tender, No HSM, No Organomegaly Extremities: No Cyanosis, No Clubbing, No edema Musculoskeletal: No Erythema Skin: No Rashes Lymphatic: No Lymph Node Enlargement Neurological: No Focal Motor or Sensory Deficit Psych/Mental Status: Appropriate 12/06/18 04:55: WBC 5.5, RBC 4.46 L, Hgb 13.2, Hct 40.4, MCV 90.6, MCH 29.6, MCHC 32.7, Plt Count 137 L, MPV 10.0, Immature Gran % (Auto) 0.400, Neut % (Auto) 64.5, Lymph % (Auto) 20.0, [place] % (Auto) 9.0, Eos % (Auto) 5.4 H, Baso % (Auto) 0.7, Absolute Neuts (auto) 3.6, Nucleated RBC % 0 12/06/18 04:55: PT 19.6 H, INR 1.7 12/06/18 04:55: Sodium 143, Potassium 4.0, Chloride 106, Carbon Dioxide 30.0, Anion Gap 7, BUN 37 H, Creatinine 1.40 H, Est GFR (MDRD) Af Amer 64, Est GFR (MDRD) Non-Af 53 L, BUN/Creatinine Ratio 26.4 H, Glucose 145 H, Calcium 8.5 Rhythm: EKG: ECHO: Stress Test: Cardiac Cath: PCI: CT Surgery: Holter monitor: EPS: PPM: CXR: Chest CT Scan: Medical Necessity - Tobacco Use Smoking Status: Former smoker Assessment/Plan 1. Ischemic cardiomyopathy: The patient had continued to complain of chest discomfort as well as with shortness of breath. The etiology of the above was not entirely clear. He underwent dobutamine stress echocardiogram which did not demonstrate any overt lateral or anterior ischemia. Based on the above it was felt that he should undergo a cardiac catheterization which he did this morning. It demonstrated a totally occluded right coronary artery which was unchanged from 2017, Left main was coronary normal. 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 The left circumflex artery had been previously stented and had undergone FFR and was noted to be unchanged with moderate disease. The left ventricular ejection fraction was as noted below. Based on the above recommendation will be to maximize his medical therapy. Patient underwent an echocardiogram on 12/03/2018 with the following results: Moderately dilated left ventricle. The estimated ejection fraction is 45 %. Stage 1 diastolic dysfunction. Moderately dilated right ventricle. Mild global right ventricular systolic dysfunction. Mild concentric left ventricular hypertrophy. Mild (1+) tricuspid valve insufficiency. Right ventricular systolic pressure estimated to be 27 mmHg. Compared to echo report dated 07/06/2017, no appreciable changes noted. Would also recommend continuing amiodarone 200 mg p.o. daily to assist with sinus tachycardia and ventricular arrhythmias. Also recommend continuing with Ranexa for microvascular disease. 2. Hyperlipidemia: Continue fenofibrate. 3. The patient can be discharged for outpatient follow-up.
[2018-12-06 11:40] LABS: Bedside Glucose 160 mg/dL (70-110)
[2018-12-06] MEDS: Pantoprazole Sodium 40 MG Tablet PO (12:05)
[2018-12-06] MEDS: Fenofibrate 145 MG Tablet PO (12:06)
[2018-12-06] MEDS: Furosemide 40 MG Tablet PO (12:07)
[2018-12-06] MEDS: Gabapentin 300 MG Capsule PO (12:07)
[2018-12-06] MEDS: Spironolactone 25 MG Tablet PO (12:07)
[2018-12-06] MEDS: Insulin Lispro 100 UNIT/ML INSULN.PEN SC (12:08)
[2018-12-06] MEDS: Insulin NPH Human 100 UNITS/ML PEN 32 UNITS SC (12:09)
[2018-12-06] MEDS: Insulin Lispro 100 UNIT/ML INSULN.PEN 20 UNIT SC (12:09)
--- NOTE | 2018-12-06 13:59 | CASEMGMT ---
ANA ROSA spoke with patient and his regarding medication assistance. SW went over some of the options for help and it sounds like they would not qualify for medicaid or any Medicare savings programs. SW did give them information on [employer] and [email or web address]. They do have access to a computer and their daughter can also help. Nargis HAMEED MSW
--- NOTE | 2018-12-06 14:54 | PCM.DC ---
- Discharge Diagnoses Current Active Problems: Current Active and Chronic Problems (Last Updated 12/03/18 @ 10:01 by Mikey Mitchell MD) Chest pain (Acute) You will use the following diet at home:: Calorie/Carbohydrate Controlled (specify 1200, 1400, etc), Cardiac Your food should be the consistency of: Regular Your liquids should be the consistency of: Regular/Thin Discharge Activity: Return to Normal Activity Call your doctor if you observe: Fever of 101 or Higher, Inability to urinate, Shortness of breath, Dizziness, Fainting spells, Swelling in the ankles, Chest pain, Calf discomfort Instructions: Eating a Low-Salt Diet Additional Instructions: 1. The cardiac catheterization was unchanged from the last cath you had so no need for intervention. 2. The Lasix was increased from 40 mg once daily to 40 mg twice a day and I have given you a prescription for Lasix 60 tabs a month. 3. I have given you a prescription for the nitroglycerin. 4. You can resume Warfarin today and should have your INR/bleeding time checked in 1 week. Your PCP can order this for you. 5. The more salt that you eat the more water you will retain so be very conscious of keeping you salt intake under 2 GM of salt daily......salt is sodium chloride. Get in the habit of reading labels and NEVER add salt to food. Pending Tests on Discharge: none Allergies/Adverse Reactions: Allergies ceftriaxone sodium [From Rocephin] Allergy (Verified 12/02/18 17:18) Rash milk Adverse Reaction (Verified 12/02/18 17:18) Diarrhea morphine Adverse Reaction (Verified 12/02/18 17:18) hallucinations Medications to take at Discharge Clopidogrel Bisulfate [Plavix] 75 mg PO DAILY 12/04/14 Insulin Lispro [Humalog] 20 unit SQ TIDCM 08/25/17 Lisinopril [Zestril] 20 mg PO DAILY 08/25/17 amiodarone 200 mg tablet 200 mg PO DAILY #90 tab 11/19/17 pantoprazole 40 mg tablet,delayed release 40 mg PO DAILY #90 tab 03/05/18 rosuvastatin 40 mg tablet 40 mg PO QHS #90 tab 04/20/18 gabapentin 300 mg capsule 300 mg PO TID 90 Days #270 cap 09/07/18 isosorbide mononitrate ER 60 mg tablet,extended release 24 hr 30 mg PO DAILY 09/07/18 carvedilol 6.25 mg tablet 6.25 mg PO BID #180 tab 10/11/18 Aspirin E.C. [Ecotrin] 81 mg PO DAILY@0800 11/17/18 Latanoprost 1 drp EACH EYE QHS 11/17/18 Spironolactone 25 mg PO DAILY 11/17/18 Warfarin Sodium 6 mg PO DAILY 11/17/18 Colestipol Tablet [Colestid Tablet] 1 gm PO BID 12/02/18 Fenofibrate Nanocrystallized [Tricor] 145 mg PO DAILY 12/02/18 Insulin NPH Human Isophane [Humulin N Vial] 32 units SQ BID 12/02/18 Ranolazine [Ranexa] 1,000 mg PO BID 12/02/18 Ropinirole HCl [Requip] 0.25 mg PO QHS 12/02/18 Furosemide [Lasix] 40 mg PO BID #60 tab 12/06/18 Nitroglycerin (INPATIENT USE) [Nitrostat] 0.4 mg SUBLINGUAL Q5M PRN #1 bottle 12/06/18 The following prescriptions were given: Furosemide [Lasix] 40 mg PO BID #60 tab Transmission Status: Pending to [facility] Nitroglycerin (INPATIENT USE) [Nitrostat] 0.4 mg SUBLINGUAL Q5M PRN #1 bottle PRN Reason: Chest Pain Transmission Status: Pending to [facility] Primary Care Physician: Gilbert Keyes III, MD [Primary Care Provider] - Please follow up with your Primary Care Physician in: 1 week Test Results: Test results from this visit will be discussed in further detail at your follow-up appointment, if applicable. Please Follow Up With: Johan Perry MD When: 4-6 weeks Proposed Discharge Date: 12/06/18
--- NOTE | 2018-12-06 15:05 | PCM.DC.SUM ---
Discharge Date and Diagnosis - Problem List Patient Problems: Active and Suspected Problems (Last Updated 12/03/18 @ 10:01 by Mikey Mitchell MD) Acute systolic (congestive) heart failure (Acute) Date of Admission: 12/02/18 Date of Discharge: 12/06/18 - Primary Discharge Diagnosis Active and Suspected Problems (Last Updated 12/03/18 @ 10:01 by Mikey Mitchell MD) Acute on chronic systolic (congestive) heart failure (suspected) Chest pain (Acute) - likely musculoskeletal. Cardiac cath with no change since the prior cath Thrombocytopenia - mild - Secondary Discharge Diagnosis Chronic Problems (Last Updated 12/03/18 @ 10:01 by Mikey Mitchell MD) Diabetes mellitus type 2 in obese (Chronic) Paroxysmal atrial fibrillation/flutter (Chronic) Nonsustained ventricular tachycardia (Chronic) History of implantable cardiac defibrillator (ICD) (Chronic 11/19/17) 11/23/2002, Generator change 2017 History of coronary artery stent placement (Chronic 12/15/14) [id number]; PCI-Cutting Balloon Angioplasty of ISR-ostium of prox OM1 11/22/02; PCI-stent to proximal OM1 01/2008; PCI- [id number] OM1 w/ 2.5 x 12 mm Promus Premier 12/15/14 Hyperlipidemia (Chronic) History of non-ST elevation myocardial infarction (NSTEMI) (Chronic 11/05/16) Atherosclerotic heart disease of [place] coronary artery with other forms of angina pectoris (Chronic) [id number] Cx; PCI-Cutting Balloon Angioplasty of ISR-ostium of prox lat CX 11/22/02; PCI-stent to proximal OM 01/2008; PCI- [id number] OM 12/15/13;LHC w/FFR of LAD, D1, LCx 05/30/2016 Nonrheumatic tricuspid (valve) insufficiency (Chronic) Ischemic cardiomyopathy (Chronic) EF is 45% with a moderately dilated left ventricle Obesity Global right ventricular systolic dysfunction with a moderately dilated right ventricle Stage I diastolic dysfunction Left ventricular hypertrophy Hospital Course and Treatment Imaging Results: Clinical Impression(s) from Imaging Studies Chest X-Ray 12/02/18 17:28 IMPRESSION: No acute cardiopulmonary disease. Electronically Signed: Agus Osborne MD at 17:47 EDT , Service support , Laboratory Results - last 24 hr 12/05/18 12/05/18 12/05/18 16:42 20:45 21:01 WBC RBC Hgb Hct MCV MCH MCHC RDW Std Deviation RDW Coeff of Galo Plt Count MPV Immature Gran % (Auto) Neut % (Auto) Lymph % (Auto) [place] % (Auto) Eos % (Auto) Baso % (Auto) Absolute Neuts (auto) Absolute Lymphs (auto) Nucleated RBC % PT INR Sodium Potassium Chloride Carbon Dioxide Anion Gap BUN Creatinine Estim Creat Clear Calc Est GFR (MDRD) Af Amer Est GFR (MDRD) Non-Af BUN/Creatinine Ratio Glucose Calcium POC Glucose 99 64 L 71 12/06/18 12/06/18 12/06/18 04:55 04:55 04:55 WBC 5.5 RBC 4.46 L Hgb 13.2 Hct 40.4 MCV 90.6 MCH 29.6 MCHC 32.7 RDW Std Deviation 47.2 H RDW Coeff of Galo 14.2 Plt Count 137 L MPV 10.0 Immature Gran % (Auto) 0.400 Neut % (Auto) 64.5 Lymph % (Auto) 20.0 [place] % (Auto) 9.0 Eos % (Auto) 5.4 H Baso % (Auto) 0.7 Absolute Neuts (auto) 3.6 Absolute Lymphs (auto) 1.11 Nucleated RBC % 0 PT 19.6 H INR 1.7 Sodium 143 Potassium 4.0 Chloride 106 Carbon Dioxide 30.0 Anion Gap 7 BUN 37 H Creatinine 1.40 H Estim Creat Clear Calc 45.46 Est GFR (MDRD) Af Amer 64 Est GFR (MDRD) Non-Af 53 L BUN/Creatinine Ratio 26.4 H Glucose 145 H Calcium 8.5 POC Glucose 12/06/18 12/06/18 07:57 11:36 WBC RBC Hgb Hct MCV MCH MCHC RDW Std Deviation RDW Coeff of Galo Plt Count MPV Immature Gran % (Auto) Neut % (Auto) Lymph % (Auto) [place] % (Auto) Eos % (Auto) Baso % (Auto) Absolute Neuts (auto) Absolute Lymphs (auto) Nucleated RBC % PT INR Sodium Potassium Chloride Carbon Dioxide Anion Gap BUN Creatinine Estim Creat Clear Calc Est GFR (MDRD) Af Amer Est GFR (MDRD) Non-Af BUN/Creatinine Ratio Glucose Calcium POC Glucose [address] Ramiro Esquivel and Dr. Pr[facility] Operations: None Procedures: 2-D Echocardiogram - Interpretation Summary Moderately dilated left ventricle. The estimated ejection fraction is 45 %. Stage 1 diastolic dysfunction. Moderately dilated right ventricle. Mild global right ventricular systolic dysfunction. Mild concentric left ventricular hypertrophy. Mild (1+) tricuspid valve insufficiency. Right ventricular systolic pressure estimated to be 27 mmHg. Compared to echo report dated 07/06/2017, no appreciable changes noted., Cardiac catheterization - Moderately dilated left ventricle. The estimated ejection fraction is 45 %. Stage 1 diastolic dysfunction. Moderately dilated right ventricle. Mild global right ventricular systolic dysfunction. Mild concentric left ventricular hypertrophy. Mild (1+) tricuspid valve insufficiency. Right ventricular systolic pressure estimated to be 27 mmHg. Compared to echo report dated 07/06/2017, no appreciable changes noted. Summary of Care Provided: The patient is a 73 year old M with a past medical history of paroxysmal atrial fibrillation/flutter, nonsustained ventricular tachycardia, history of AICD placement, hyperlipidemia, coronary artery disease with history of PCI/LEANNA lat CX and proximal OM and FFR of the LAD, D#1 and LCX in 2017 with negative results, nonrheumatic tricuspid valve insufficiency, chronic anticoagulation with warfarin and ischemic cardiomyopathy with a 45% ejection fraction who presented to the emergency department at [facility] on 12/02/2018 complaining of left-sided chest pain associated with shortness of breath and increased lower extremity edema since the AICD fired on 11/17/18. On November 172018 his AICD fired but interrogation of the pacemaker showed no dysrhythmia at the time. The sensitivity was adjusted. Vital signs at presentation to the emergency room were temperature 98.3, pulse rate 67, blood pressure 133/79, respiratory rate 20 and he was 97% saturated on room air. Significant lab included an unremarkable CBC, INR of 2.6, increased creatinine at 1.66 with a creatinine of 1.16 in February 2018. Creatinine on 11/17/2018 was 2.34. Troponin was 0.022 and the second troponin was 0.026. A BNP was 28.3. Lipid panel showed a cholesterol of 135 with an LDL of 59 and an HDL of 35. Chest x-ray showed no pleural effusions, significant pulmonary vascular congestion or infiltrates. EKG showed normal sinus rhythm with an old inferior wall infarct and new anterolateral infarct. The patient was admitted to a monitored bed on PCU and Dr. Esquivel was consulted. Dr. Esquivel recommended increasing Lasix to 40 mg twice daily and to institute a 1500 cc daily fluid restriction. He also recommended a repeat transthoracic echocardiogram and a dobutamine stress echo. The surface echocardiogram showed a moderately dilated left ventricle with a 45% EF. There was stage I diastolic dysfunction and a moderately dilated right ventricle with mild global right ventricular systolic dysfunction. There was mild concentric left ventricular hypertrophy and +1 tricuspid insufficiency. The right ventricular systolic pressure was estimated to be 27 mmHg. When compared to an echocardiogram done on 07/06/2017 there was no appreciable change. The dobutamine stress echocardiogram showed an initial ejection fraction of 45% which increased to 55% following dobutamine. It was negative for ischemia by EKG and echocardiographic criteria. Despite the negative dobutamine stress echo the patient continued to complain of chest discomfort as well as shortness of breath. He had catheterization was recommended and the patient was agreeable. He underwent cardiac catheterization on 12/06/2018 and this demonstrated a totally occluded right coronary artery which was unchanged from 2017. 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 The left circumflex artery had previously been stented and was noted to be unchanged with moderate disease. The recommendation was made to maximize his medical therapy. Continued amiodarone 200 mg daily was recommended as well as Lasix twice daily rather than once daily. The importance of a low-salt diet was stressed with him and also fluid restriction. Ranexa was continued. He will continue his lipid-lowering medications. He was discharged on 12/06/2018 and will follow up with Dr. Perry in 4 to 6 weeks. He will follow-up with Dr. Gilbert Keyes iii in 1 week. Warfarin was held for the cath and the INR on 12/06/2018 was 1.7. He was told to resume his Coumadin 6 mg daily and will require PT/INR in 7 to 10 days. PHYSICAL EXAM: GENERAL: alert, oriented X 3, Cooperative, NAD ORAL: moist mucosa, no mucosal lesions NECK: No JVD, supple, trachea midline, no carotid bruits LUNGS: CTA, symmetric chest expansion HEART: RRR, Normal S1 and S2, no rub, no gallop, no murmur ABDOMEN: soft, NT, ND, BS present, no guarding with palpation, obese EXTREMITIES: no edema, no cyanosis, no calf tenderness, normal peripheral pulses SKIN: No rashes, no breakdown NEUROLOGIC: no focal neurologic deficits PSYCH: appropriate, normal affect, pleasant This note was generated with [employer] dictation software. It may contain incorrect words, spelling, and punctuation that were not noted in checking the note before signing. Patient Problems: Active and Suspected Problems (Last Updated 12/03/18 @ 10:01 by Mikey Mitchell MD) Acute systolic (congestive) heart failure (Acute) - Physical Exam Vital Signs Temp Pulse Resp BP Pulse Ox 97.9 F 60 16 105/61 95 12/06/18 14:00 12/06/18 14:00 12/06/18 14:00 12/06/18 14:00 12/06/18 14:00 Oxygen Flow Rate (L/min) 2 Oxygen Delivery Method Room Air Weight: 252 lb 3.341 oz Body Mass Index (BMI) 39.3 Finger Stick Blood Glucose 180 Orthostatic Vital Signs Start: 12/03/18 14:51 Freq: q24h Status: Active Protocol: Activity Type Activity Date Activity User E-Sign Co-Sign Detail Recorded Client Recorded Date Recorded By Document 12/03/18 14:51 EN [id number] 12/03/18 14:54 EN 12/03/18 14:51 Orthostatic Vitals Standing -Blood Pressure (90/60-120/80 mm Hg) 109/67 -Extremity Use Left Arm Sitting -Blood Pressure (90/60-120/80 mm Hg) 110/68 -Extremity Use Left Arm Lying -Blood Pressure (90/60-120/80 mm Hg) 106/71 -Extremity Use Left Arm Intake and Output for Last 24 Hours 12/04/18 12/05/18 12/06/18 23:59 23:59 23:59 Intake Total 858 / 858 720 / 720 480 / 480 Output Total 1400 / 1400 2300 / 2300 600 / 600 Balance -542 / -542 -1580 / -1580 -120 / -120 Laboratory Tests Past 24 Hrs 12/06/18 12/06/18 12/06/18 04:55 04:55 04:55 WBC 5.5 RBC 4.46 L Hgb 13.2 Hct 40.4 MCV 90.6 MCH 29.6 MCHC 32.7 RDW Std Deviation 47.2 H RDW Coeff of Galo 14.2 Plt Count 137 L MPV 10.0 Immature Gran % (Auto) 0.400 Neut % (Auto) 64.5 Lymph % (Auto) 20.0 [place] % (Auto) 9.0 Eos % (Auto) 5.4 H Baso % (Auto) 0.7 Absolute Neuts (auto) 3.6 Absolute Lymphs (auto) 1.11 Nucleated RBC % 0 PT 19.6 H INR 1.7 Sodium 143 Potassium 4.0 Chloride 106 Carbon Dioxide 30.0 Anion Gap 7 BUN 37 H Creatinine 1.40 H Estim Creat Clear Calc 45.46 Est GFR (MDRD) Af Amer 64 Est GFR (MDRD) Non-Af 53 L BUN/Creatinine Ratio 26.4 H Glucose 145 H Calcium 8.5 POC Glucose 12/06/18 12/06/18 12/05/18 11:36 07:57 21:01 POC Glucose 160 H 150 H 71 12/05/18 12/05/18 20:45 16:42 POC Glucose 64 L 99 Discharge Activity: Return to Normal Activity Call your doctor if you observe: Fever of 101 or Higher, Inability to urinate, Shortness of breath, Dizziness, Fainting spells, Swelling in the ankles, Chest pain, Calf discomfort Home Medications: Medications to take at Discharge Clopidogrel Bisulfate [Plavix] 75 mg PO DAILY 12/04/14 Insulin Lispro [Humalog] 20 unit SQ TIDCM 08/25/17 Lisinopril [Zestril] 20 mg PO DAILY 08/25/17 amiodarone 200 mg tablet 200 mg PO DAILY #90 tab 11/19/17 pantoprazole 40 mg tablet,delayed release 40 mg PO DAILY #90 tab 03/05/18 rosuvastatin 40 mg tablet 40 mg PO QHS #90 tab 04/20/18 gabapentin 300 mg capsule 300 mg PO TID 90 Days #270 cap 09/07/18 isosorbide mononitrate ER 60 mg tablet,extended release 24 hr 30 mg PO DAILY 09/07/18 carvedilol 6.25 mg tablet 6.25 mg PO BID #180 tab 10/11/18 Aspirin E.C. [Ecotrin] 81 mg PO DAILY@0800 11/17/18 Latanoprost 1 drp EACH EYE QHS 11/17/18 Spironolactone 25 mg PO DAILY 11/17/18 Warfarin Sodium 6 mg PO DAILY 11/17/18 Colestipol Tablet [Colestid Tablet] 1 gm PO BID 12/02/18 Fenofibrate Nanocrystallized [Tricor] 145 mg PO DAILY 12/02/18 Insulin NPH Human Isophane [Humulin N Vial] 32 units SQ BID 12/02/18 Ranolazine [Ranexa] 1,000 mg PO BID 12/02/18 Ropinirole HCl [Requip] 0.25 mg PO QHS 12/02/18 Furosemide [Lasix] 40 mg PO BID #60 tab 12/06/18 Nitroglycerin (INPATIENT USE) [Nitrostat] 0.4 mg SUBLINGUAL Q5M PRN #1 bottle 12/06/18 Following Prescrptions Were Given to Patient: Furosemide [Lasix] 40 mg PO BID #60 tab Transmission Status: Received by [facility] Nitroglycerin (INPATIENT USE) [Nitrostat] 0.4 mg SUBLINGUAL Q5M PRN #1 bottle PRN Reason: Chest Pain Transmission Status: Received by [facility] Primary Care Physician: Gilbert Keyes III, MD [Primary Care Provider] - Please follow up with your Primary Care Physician in: 1 week Please Follow Up With: Johan Perry MD When: 4-6 weeks Patient Instructions: Eating a Low-Salt Diet Disposition: Home Minutes spent on discharge:: 35 Patient Condition:: Stable Medical Necessity - Tobacco Use Smoking Status: Former smoker Tobacco Use: Non-smoker Meaningful Use Info Meaningful Use Diagnoses (Choose all that apply): CHF - CHF NIYA/ARB ordered at discharge?: Yes Documented LVEF (%): 45 Code Visit Inpatient E&M: 27692 Disch Hosp
--- NOTE | 2018-12-07 13:51 | CASEMGMT ---
DIANA HENRY DC PHONE CALL DC DATE: 12/06/18 DC Disposition: Home Diagnosis on Discharge: CHF LACE/STRATA: 10/07 Intro role of CM to patient. Pt states he did not get notification of Lasix prescription from [facility]. Call to [facility] pharmacy to check Lasix prescription. Per cert pharmacy tech- pt picked up a 90 day prescription for lasix 40 mg twice daily a month ago. Reviewed pt's home lasix with him- pt states current lasix bottle is 40 mg and he is to take twice a day. No further questions, reviewed appts with pt. No care improvement suggestions were given. Sabrina SHEIKH RN ACM
--- NOTE | 2018-12-23 09:58 | CL.D_ITS ---
Patient Name: Tim LONG Study Date: 12/06/2018 Performing: Johan Perry MD Ht: 68 inches 173 cm : 1945 Wt: 251.7 lbs 114 kg Age: 73 Gender: male BSA: 2.25 PROCEDURE(S) PERFORMED [id number] CLINICAL PROFILE AND INDICATIONS Indications: Suspected CAD Heart Failure: None Stress/Imaging Stress/Image Study Performed: No CAD Presentations: Symptom unlikely to be ischemic. CONCLUSIONS Stable coronary artery disease with patent left anterior descending artery and moderate disease noted in the circumflex artery with a totally occluded right coronary artery. Compared to the previous fi lms the above appeared to be mildly improved. RECOMMENDATIONS Medical therapy DESCRIPTION OF PROCEDURE The patient arrived to the procedure lab. The risks and benefits of the procedure as well as a full d escription of our services here and current unavailability of surgical backup were fully explained to the patient and/or their significant other prior to the catheterization. The Timeout was completed, verifying the correct patient and procedure. The patient's procedural site was prepped and draped in the usual fashion. Local anesthetic was given subcutaneously to right groin region with Lidocaine 2%. Using a modified Seldinger technique, arterial access was obtained via the right femoral artery, a 5 Fr sheath was inserted. Left Coronary Artery selective angiography was performed in multiple views u sing a 5 Fr. JL4 catheter. Right Coronary Artery selective angiography was then performed in multiple views using a 5 Fr. 3DRC (José) catheter.The arterial sheath was pulled and a Mynx closure devic e was deployed for hemostasis CORONARY ANGIOGRAPHY DOMINANCE: Right Dominant LEFT HEART ASSESSMENT Left Ventricular Ejection Fraction: Not assessed LEFT MAIN: Angiographically normal LEFT ANTERIOR DESCENDING ARTERY: MID LAD: Mild luminal irregularities less than 30% DIAGONAL 1: Ostial - Moderate luminal irregularities up to 50% CIRCUMFLEX ARTERY: PROX CIRC: 60 % Stenosis RIGHT CORONARY ARTERY: PROX RCA: is occluded COMPLICATIONS No Complications PROCEDURE MEDICATIONS Versed 1 mg IV Oxygen: 2 L/min via nasal cannula SUMMARY OF HEMODYNAMIC DATA Time AIR REST ECG 10:02:47 AO 138/94 (112) SA 10:23:21 Signed By Johan Perry MD On 12/14/2018 12:27:45 Johan Perry MD
== END 2018-12-06 16:04 | disposition home or self-care (01) | DRG 286 ==
LOC: ED 17:51 → PCU 18:27
PROVIDERS: Hospitalist; Internal Medicine Cardiovascular Disease; Emergency Provider Emergency Medicine; Family Provider Family Medicine; PCP Family Medicine; Visit Provider Internal Medicine
DX: R07.89 Other chest pain (principal); I50.23 Acute on chronic systolic (congestive) heart failure; I11.0 Hypertensive heart disease with heart failure; E11.9 Type 2 diabetes mellitus without complications; I48.0 Paroxysmal atrial fibrillation; I25.5 Ischemic cardiomyopathy; I25.10 Atherosclerotic heart disease of native coronary artery without angina pectoris; E78.5 Hyperlipidemia, unspecified; I25.82 Chronic total occlusion of coronary artery; D69.6 Thrombocytopenia, unspecified; Z95.810 Presence of automatic (implantable) cardiac defibrillator; Z95.5 Presence of coronary angioplasty implant and graft; Z79.01 Long term (current) use of anticoagulants; Z87.891 Personal history of nicotine dependence; Z79.4 Long term (current) use of insulin; Z66 Do not resuscitate; I36.1 Nonrheumatic tricuspid (valve) insufficiency; I25.2 Old myocardial infarction; Z79.82 Long term (current) use of aspirin; E66.9 Obesity, unspecified; Z68.39 Body mass index [BMI] 39.0-39.9, adult
CPT/HCPCS: 36415; 71045; 80048; 80061; 82962; 83880; 84484; 85025; 85610; 85652; 86141; 93005; 93017; 93306; 93350; 93454; 94640; 97802; 99152; 99153; 99285; C1760; J7030; J7040; Q9957; Q9967; A4216; C1769; C8928; J1940; J2405

== ENCOUNTER → 2019-01-04 10:29 | Outpatient (CLI) | payer MEDICARE, OTHER, SELFPAY ==
[2017-11-06 10:25] VITALS: BMI 37.2
[2019-01-04 10:29] VITALS: BMI 40.2
== END ==
PROVIDERS: Family Provider Family Medicine; PCP Family Medicine; Referring Provider Urology; Visit Provider Urology
DX: Z12.5 Encounter for screening for malignant neoplasm of prostate (principal)
CPT/HCPCS: 36415; 84153; G0103

== ENCOUNTER 2019-08-16 02:28 | Emergency (ER) | payer MEDICARE, OTHER, SELFPAY ==
[2017-11-06 10:25] VITALS: BMI 37.2
[2019-05-30 08:37] VITALS: BMI 40.4
[2019-08-16 02:28] VITALS: BP 131/83; PULSE 60; RESP 17; TEMP 36.4; O2SAT 98; BMI 42.3
[2019-08-16 02:30] VITALS: BP 131/83; PULSE 60; RESP 17; TEMP 36.4; O2SAT 98
--- NOTE | 2019-08-16 02:31 | ED.RN ---
CALLED FOR EKG PER RN REQUEST, PULLED OLD EKGS FOR
--- NOTE | 2019-08-16 02:41 | EKG12_ITS ---
Test Reason : CP/SOB Blood Pressure : / mmHG Vent. Rate : 061 BPM Atrial Rate : 061 BPM P-R Int : 182 ms QRS Dur : 104 ms QT Int : 446 ms P-R-T Axes : 039 -07 056 degrees QTc Int : 448 ms Sinus rhythm with Fusion complexes Low voltage QRS Incomplete right bundle branch block Inferior infarct , age undetermined Anterior infarct , age undetermined Abnormal ECG Confirmed by LONG SIMMONS, ARNIE ([id number]), non linear editor IRIS TUTTLE ([id number]) on 08/18/2019 3:59:04 PM Referred By: SAGAR Confirmed By:ARNIE ALVES MD
--- NOTE | 2019-08-16 02:54 | ED.DCSUM_ITS ---
History of Present Illness Chief Complaint: Shortness of Breath Detail of Chief Complaint: Cough, sore throat and lower extremity swelling Informant: Patient Onset: Weeks Context: Sudden Onset Timing: Continuous Quality: Shortness of breath and upper respiratory symptoms Location: Upper respiratory Current Severity: Mild Maximum Severity: Moderate Worsened by: Nothing Relieved by: Nothing Associated Symptoms: Nausea Narrative: Patient is a 73-year-old male who presents with 1 week history of nonproductive cough, shortness of breath, rhinorrhea, congestion, postnasal drainage and sore throat. He denies change in smell or taste. He denies neck pain or neck stiffness. He denies chest pain. He does report lower extremity swelling. He has no history of VTE. Does have history of congestive heart failure and 2 pillow orthopnea. His orthopnea has not gotten worse. He denies PND. He states he is compliant with his medication but not his diet. He denies abdominal pain, vomiting, diarrhea. He denies hematemesis, melena hematochezia. Prior similar symptoms: No Recent Illness/Hospitalization: No - Past Medical History (1) History of congestive heart failure Status: Acute (2) History of coronary artery stent placement Status: Chronic Comment: [id number]; PCI-Cutting Balloon Angioplasty of ISR-ostium of prox OM1 11/22/02; PCI-stent to proximal OM1 01/2008; PCI- [id number] OM1 w/ 2.5 x 12 mm Promus Premier 12/15/14 (3) History of implantable cardiac defibrillator (ICD) Status: Chronic Comment: 11/23/2002, Generator change 2017 (4) Hyperlipidemia Status: Chronic (5) Ischemic cardiomyopathy Status: Chronic (6) Nonsustained ventricular tachycardia Status: Chronic (7) 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 (8) Paroxysmal atrial flutter Status: Chronic Past Medical History - Allergies and Home Meds Allergies/Adverse Reactions: Allergies ceftriaxone sodium [From Rocephin] Allergy (Verified 05/30/19 09:04) Rash milk Adverse Reaction (Verified 05/30/19 09:04) Diarrhea morphine Adverse Reaction (Verified 05/30/19 09:04) hallucinations Primary Care Physician: Gilbert Keyes III, MD [Primary Care Provider] - Prior records reviewed: Yes Surgical History: - Lives: Alone Smoking Status: Former smoker Alcohol: None Drugs: None - Family History Maternal Family History: Family History (Last Reviewed 01/28/19 @ 09:[address] Johan Perry MD) Father Prostate cancer Mother CVA (cerebral vascular accident) Sister Congestive heart failure Diabetes Hypertension Hyperlipidemia Atrial fibrillation CAD (coronary artery disease) Cardiac defibrillator in situ Sister Breast cancer Sister Breast cancer Brother CAD (coronary artery disease) Myocardial infarction Diabetes Brother Diabetes Brother COPD (chronic obstructive pulmonary disease) Sister Alive and well Family History: Reports: Stroke - CVA, age 80. Paternal Family History: Family History (Last Reviewed 01/28/19 @ 09:[address] Johan Perry MD) Father Prostate cancer Mother CVA (cerebral vascular accident) Sister Congestive heart failure Diabetes Hypertension Hyperlipidemia Atrial fibrillation CAD (coronary artery disease) Cardiac defibrillator in situ Sister Breast cancer Sister Breast cancer Brother CAD (coronary artery disease) Myocardial infarction Diabetes Brother Diabetes Brother COPD (chronic obstructive pulmonary disease) Sister Alive and well Family History: Reports: Cancer - Prostate CA, 78 y/o. Sibling Family History: Family History (Last Reviewed 01/28/19 @ 09:[address] Johan Perry MD) Father Prostate cancer Mother CVA (cerebral vascular accident) Sister Congestive heart failure Diabetes Hypertension Hyperlipidemia Atrial fibrillation CAD (coronary artery disease) Cardiac defibrillator in situ Sister Breast cancer Sister Breast cancer Brother CAD (coronary artery disease) Myocardial infarction Diabetes Brother Diabetes Brother COPD (chronic obstructive pulmonary disease) Sister Alive and well Family History: Reports: Diabetes Review of Systems General: Denies: Chills, Fever, Malaise Eyes: Denies: Visual changes - bilaterally, Blurred Vision - bilaterally ENT: Reports: Rhinorrhea, Sore throat, - - Denies ear pain, tinnitus, or drainage. He denies change in smell or taste.. Denies: Bilateral ear pain Cardiovascular: Denies: Chest pain, Palpitations, Heart racing Respiratory: Reports: Dyspnea, Cough, Orthopnea. Denies: Sputum, Dyspnea on exertion, Paroxysmal nocturnal dyspnea Gastrointestinal: Reports: Nausea. Denies: Abdominal pain, Vomiting, Diarrhea, Constipation, Melena, Hematochezia Genitourinary: Denies: Dysuria, Hematuria, Frequency Musculoskeletal: Reports: Extremity Pain. Denies: Myalgias, Arthralgias, Neck pain, Back pain, Swelling Skin: Denies: Rash, Wounds Neurological: Denies: Headache, Weakness, Parasthesia Endocrine: Denies: Polyuria, Polydipsia Hematologic: Denies: Easy bruising, Easy bleeding Physical Exam Vital Signs/Narrative: Vital Signs Temp Pulse Resp BP Pulse Ox 08/16/19 02:30 97.5 F L 60 17 131/83 H 98 08/16/19 02:28 97.5 F L 60 17 131/83 H 98 Inital Vital Signs reviewed: Yes General: Well nourished, Well developed, Obese, No Acute Distress Head: Normocephalic, Atraumatic Eyes: Perrl, EOMI. Negative for: Pale conjunctiva, Scleral icterus ENT: Moist mucous membranes, No rhinorrhea. Negative for: Nasal congestion, Sinus tenderness Neck: Supple, Nontender, No lymphadenopathy, No JVD Cardiovascular: Regular rate, Regular rhythm, No murmurs, Normal S1, Normal S2 Respiratory: No distress, Chest nontender, Wheezing - Which is fine and end of expiration., Decreased Air Movement - Bilaterally Abdomen: Soft, Nontender, Nondistended, Normal bowel sounds Back: Nontender, Normal Inspection. Negative for: CVA tenderness Extremities: Nontender, Edema Skin: Normal color, No rash, No Trauma. Negative for: Cyanosis, Diaphoresis, Jaundice Neurological: Alert, Oriented x3, Cranial nerves II-XII grossly intact, Normal Strength, Normal Sensation Psychological: Normal affect, Normal Mood Diagnostic/Tx/Re-eval Chest X-Ray - ED: 2 View, Read by ED Physician, Bony Structures, No Acute Disease, - - Of optimal film. Patient has not upright and limited story value on the PA view. Lateral view reveals no effusion. The cardiac silhouette is noted. There is no evidence of congestive heart failure, pneumothorax or effusion. There is no discrete infiltrate noted. 08/16/19 03:15 Chest PA and Lateral [RAD] Stat Laboratory Results 08/16/19 08/16/19 08/16/19 02:45 02:45 02:45 WBC 6.8 RBC 4.23 L Hgb 12.6 L Hct 38.0 L MCV 89.8 MCH 29.8 MCHC 33.2 RDW Std Deviation 45.4 H RDW Coeff of Galo 13.8 Plt Count 145 L MPV 9.8 Immature Gran % (Auto) 0.300 Neut % (Auto) 67.7 Lymph % (Auto) 17.6 L Beadle % (Auto) 10.3 H Eos % (Auto) 3.5 Baso % (Auto) 0.6 Absolute Neuts (auto) 4.6 Absolute Lymphs (auto) 1.19 Nucleated RBC % 0 PT 23.1 H INR 2.1 Sodium 139 Potassium 3.8 Chloride 103 Carbon Dioxide 30.0 Anion Gap 6 BUN 37 H Creatinine 1.51 H Estim Creat Clear Calc 42.15 Est GFR (MDRD) Af Amer 58 L Est GFR (MDRD) Non-Af 48 L BUN/Creatinine Ratio 24.5 H Glucose 114 H Calcium 8.9 Troponin I < 0.015 B-Natriuretic Peptide COVID-19 ([facility]ARA) 08/16/19 08/16/19 02:45 03:13 WBC RBC Hgb Hct MCV MCH MCHC RDW Std Deviation RDW Coeff of Galo Plt Count MPV Immature Gran % (Auto) Neut % (Auto) Lymph % (Auto) Beadle % (Auto) Eos % (Auto) Baso % (Auto) Absolute Neuts (auto) Absolute Lymphs (auto) Nucleated RBC % PT INR Sodium Potassium Chloride Carbon Dioxide Anion Gap BUN Creatinine Estim Creat Clear Calc Est GFR (MDRD) Af Amer Est GFR (MDRD) Non-Af BUN/Creatinine Ratio Glucose Calcium Troponin I B-Natriuretic Peptide 26.0 COVID-19 ([facility]ARA) Cancelled BC and H&H are unchanged from prior. INR is 2.1. BNP is normal, 26. Creatinine is elevated. Patient's creatinine has been elevated in the past. Troponin was normal as well. Plan is to discharge with suspected COVID home- going instructions. - EKG Initial EKG Interpretation: Sinus Rhythm - Sinus rhythm with a ventricular rate of 61. CO interval is 182 ms. QRS durations 104 ms. QT duration is 446 ms. This EKG is unchanged from December 06, 2018. The EKG reveals a sinus rhythm with a nonspecific intraventricular conduction delay. (See incomplete right bundle branch) inferior Q waves suspect secondary to inferior AK. Computer is reading acute inferior AK. I am in disagreement. Prior: Unchanged - Medical Decision Making Enter diagnosis includes viral upper respiratory infection, COVID 19, congestive heart failure, pneumonia. Work-up included EKG, chest x-ray and appropriate labs. ED Disposition - Plan for ED Patient: Disposition: Home or Assisted Living Diagnosis: Suspected 2019 novel coronavirus infection, Lymphedema in adult patient, Venous stasis dermatitis Referrals: Gilbert Keyes III, MD [Primary Care Provider] - 3-5 Days if not improving Additional Instructions: You were given the respiratory infection/COVID home-going instructions.
[2019-08-16 02:55] LABS: Absolute Lymphocyte Count 1.19 X10^3/uL (0.83-4.51); Absolute Neutrophil Count 4.6 X10^3/uL (2.0-7.7); Basophil# 0.04 X10^3/uL; Basophil% 0.6 % (0-1); Eosinophil# 0.24 X10^3/uL; Eosinophils% 3.5 % (0-5); Hemoglobin 12.6 g/dL (13.0-16.5); Lymphocyte # 1.19 X10^3/ul (4.0); Lymphocyte % 17.6 % (19-41); Mean Corp Hgb Conc 33.2 g/dL (32-36); Mean Corpuscular Hgb 29.8 pg (27.0-32.0); Mean Corpuscular Volume 89.8 fL (80-94); Mean Platelet Vol. 9.8 fl (6.2-12.0); Monocyte% 10.3 % (0-10); NRBC Flagged by Analyzer 0 % (0-5); Neutrophil # 4.59 X10^3/uL (2.7-7.7); Neutrophil % 67.7 % (47-70); Platelet Count 145 K/mm3 (150-450); RBC Distribution Width CV 13.8 % (11.6-14.6); RBC Distribution Width SD 45.4 fl (35.1-43.9); Red Blood Count 4.23 M/mm3 (4.6-6.2); White Blood Count 6.8 K/mm3 (4.4-11.0)
[2019-08-16 03:06] LABS: International Normalized Ratio 2.1; Prothrombin Time (Protime)PT. 23.1 SECONDS (11.7-14.9)
[2019-08-16 03:12] LABS: Anion Gap 6 (5-15); BUN 37 mg/dL (7-18); BUN/Creat Ratio 24.5 RATIO (10-20); Calcium,Total 8.9 mg/dL (8.5-10.1); Chloride 103 mmol/L (98-107); Creatinine, Serum 1.51 mg/dL (0.70-1.30); EST Glomerular Filtration Rate 48 mL/min (>60); Est Glom Filt Rate - Afr Amer 58 mL/min (>60); Estimated Creatinine Clearance 42.15 ml/min; Glucose 114 mg/dL (74-106); Potassium 3.8 mmol/L (3.5-5.1); Sodium Level 139 mmol/L (136-145)
--- NOTE | 2019-08-16 03:15 | RAD_ITS ---
STUDY: X-RAY CHEST REASON FOR EXAM: Male, 73 years old. COUGH, SOB TECHNIQUE: PA and lateral COMPARISON: 12/02/2018 FINDINGS: The pacemaker leads are in proper position. The lungs are clear and expanded. There is no demonstrated pleural abnormality. Normal size heart. Normal mediastinum and eleuterio. Normal visualized pulmonary arteries. Normal visualized aortic arch and descending thoracic aorta. Normal visualized thoracic spine. Normal visualized ribs, clavicles, and shoulders. There is no demonstrated abnormality of the visualized soft tissue structures of the upper abdomen. RAD/Chest PA and Lateral IMPRESSION: There is NO acute cardiopulmonary abnormality. Electronically Signed: Ervin Tiwari MD at 3:42 EDT , Service support ,
[2019-08-16 03:52] VITALS: BP 115/63; PULSE 58; RESP 15; TEMP 36.3; O2SAT 96
[2019-08-16 04:12] VITALS: BP 117/68; PULSE 59; RESP 16; TEMP 36.2; O2SAT 97
--- OUTSIDE RECORDS SUMMARY | 2020-01-10 12:57 | XMS RPT_ITS | CCD ---
:1945 External Reference #:[id number] Author Organization [facility] Care Team Providers Name Role Phone Jesica Valdez Primary Care Provider Kemi (Pharmacist) Unavailable DRAGAN Morales, M Unavailable Unavailable Kobe Garsia Unavailable Kobe Garsia Unavailable Selina ORTIZ, A Unavailable Unavailable DRAGAN Odom, M Unavailable Unavailable DRAGAN Morales, M Unavailable Unavailable DRAGAN Morales, M Unavailable Unavailable DRAGAN Morales, M Unavailable Unavailable MD [place], S Unavailable MARK Khanna, M Unavailable ESTAFANOUS Unavailable Unavailable Jesica Marks RN Unavailable Unavailable Tasha Beard Unavailable Unavailable Tasha Beard Unavailable Unavailable Jesica Wagner Unavailable Unavailable DRAGAN Morales, M Unavailable Unavailable 13 Unavailable Allergies Reported Allergen Reaction(s) Severity Date of Location Onset ceftriaxone rash Severe, Severe 06-19-2016 - [facility] ([id number]) cefTRIAXone Other: See Comments 06-20-2014 - [facility] (79725) cow milk diarrhea (lactose Moderate, 06-19-2016 - [facility] art Translations: [ intolerant) Moderate Group ([id number] ) MILK] Morphine Hallucinations Severe, Critical 02-28-2005 - [facility] (50502) Medications Medication Name Sig Date Prescriber Location Amiodarone amiodarone (PACERONE) 11-26-2017 Morgan Valdez [facility] 200 mg tablet Take 1 (89788) tablet by mouth once daily. 0 11/26/2017 Active Comment: Take 1 tablet by mouth once daily. amLODIPine AMLODIPINE BESYLATE 5 MG TABS One 09-06-2013 [facility] (21607) tablet by mouth daily AMLODIPINE BESYLATE [id number] Melany Khanna PA-C AMLODIPINE BESYLATE 10 MG 09-06-2013 Melany Restrepo RN [facility] TABS One tablet by mouth (15159) daily AMLODIPINE BESYLATE [id number] Melany Khanna PA-C aspirin Aspirin 81 mg ORAL Tab Take 06-10-2011 Morgan Veeselina [facility] 1 tablet by mouth once (4469 1) daily. Take with food. 30 tablet 11 07/07/2011 Active ASPIRIN 81 MG TABS One tablet by mouth twice 06-10-2011 [facility] (69249) daily ASPIRIN [id number] Rahul Anaya MD ASPIRIN 81 MG TABS One tablet by mouth daily 06-10-2011 [facility] (63536) ASPIRIN [id number] Kath Esquivel MD ASPIRIN 81 MG TABS One tablet by mouth twice 06-10-2011 [facility] (68780) daily ASPIRIN [id number] Rahul Anaya MD ASPIRIN EC 81 MG TBEC One tablet by mouth 06-10-2011 [facility] (94529) daily ASPIRIN [id number] Jessica Odom RN ASPIRIN 325 MG TABS One tablet by mouth 07-16-2010 [facility] (26257) daily ASPIRIN [id number] Tracee Beard Comment: Take 1 tablet by mouth once daily. Take with food. [facility]-2018 Morgan Rosado [facility] Indications: Class 2 (83298) severe obesity due to excess calories with serious comorbidity and body mass index (BMI) of 38.0 to 38.9 in adult ([facility]) , Facet arthritis of lumbar region 1 Device once daily as needed. size large 1 Each 0 01/31/2018 Active [facility] Indications: Class 01-31-2018 Morgan Valdez [facility] (92903) 2 severe obesity due to excess calories with serious comorbidity and body mass index (BMI) of 38.0 to 38.9 in adult ([facility]) , Facet arthritis of lumbar region 1 Device once daily as needed. size large 1 Each 0 01/31/2018 Active Back Brace misc Indications: Class 01-31-2018 Morgan A [facility] (13793) 2 severe obesity due to excess calories with serious comorbidity and body mass index (BMI) of 38.0 to 38.9 in adult (HCC) , Facet arthritis of lumbar region 1 Device once daily as needed. size large 1 Each 0 01/31/2018 Active Back Brace misc Indications: Class 01-31-2018 [facility] (52228) 2 severe obesity due to excess calories with serious comorbidity and body mass index (BMI) of 38.0 to 38.9 in adult (HCC) , Facet arthritis of lumbar region 1 Device once daily as needed. size large 1 Each 0 01/31/2018 Active Back Brace misc Indications: Class 01-31-2018 [facility] (15892) 2 severe obesity due to excess calories with serious comorbidity and body mass index (BMI) of 38.0 to 38.9 in adult (HCC) , Facet arthritis of lumbar region 1 Device once daily as needed. size large 1 Each 0 01/31/2018 Active Back Brace misc Indications: Class 01-31-2018 [facility] (97025) 2 severe obesity due to excess calories with serious comorbidity and body mass index (BMI) of 38.0 to 38.9 in adult (HCC) , Facet arthritis of lumbar region 1 Device once daily as needed. size large 1 Each 0 01/31/2018 Active Back Brace misc Indications: Class 01-31-2018 [facility] (68372) 2 severe obesity due to excess calories with serious comorbidity and body mass index (BMI) of 38.0 to 38.9 in adult (HCC) , Facet arthritis of lumbar region 1 Device once daily as needed. size large 1 Each 0 01/31/2018 Active Back Brace misc Indications: Class 01-31-2018 [facility] (26369) 2 severe obesity due to excess calories with serious comorbidity and body mass index (BMI) of 38.0 to 38.9 in adult (HCC) , Facet arthritis of lumbar region 1 Device once daily as needed. size large 1 Each 0 01/31/2018 Active Back Brace misc Indications: Class 01-31-2018 Morgan A Cebul [facility] (05802) 2 severe obesity due to excess calories with serious comorbidity and body mass index (BMI) of 38.0 to 38.9 in adult (HCC) , Facet arthritis of lumbar region 1 Device once daily as needed. size large 1 Each 0 01/31/2018 Active Back Brace misc Indications: Class 01-31-2018 Morgan A bul [facility] (39148) 2 severe obesity due to excess calories with serious comorbidity and body mass index (BMI) of 38.0 to 38.9 in adult (HCC) , Facet arthritis of lumbar region 1 Device once daily as needed. size large 1 Each 0 01/31/2018 Active Back Brace misc Indications: Class 01-31-2018 Morgan A [facility] (05210) 2 severe obesity due to excess calories with serious comorbidity and body mass index (BMI) of 38.0 to 38.9 in adult (HCC) , Facet arthritis of lumbar region 1 Device once daily as needed. size large 1 Each 0 01/31/2018 Active Back Brace misc Indications: Class 01-31-2018 Morgan A [facility] (09118) 2 severe obesity due to excess calories with serious comorbidity and body mass index (BMI) of 38.0 to 38.9 in adult (HCC) , Facet arthritis of lumbar region 1 Device once daily as needed. size large 1 Each 0 01/31/2018 Active Back Brace misc Indications: Class 01-31-2018 Morgan A [facility] (87142) 2 severe obesity due to excess calories with serious comorbidity and body mass index (BMI) of 38.0 to 38.9 in adult (HCC) , Facet arthritis of lumbar region 1 Device once daily as needed. size large 1 Each 0 01/31/2018 Active Back Brace misc Indications: Class 01-31-2018 Morgan A [facility] (58798) 2 severe obesity due to excess calories with serious comorbidity and body mass index (BMI) of 38.0 to 38.9 in adult (HCC) , Facet arthritis of lumbar region 1 Device once daily as needed. size large 1 Each 0 01/31/2018 Active Back Brace misc Indications: Class 01-31-2018 Morgan A [facility] (76128) 2 severe obesity due to excess calories with serious comorbidity and body mass index (BMI) of 38.0 to 38.9 in adult (HCC) , Facet arthritis of lumbar region 1 Device once daily as needed. size large 1 Each 0 01/31/2018 Active Back Brace misc Indications: Class 01-31-2018 Morgan Mooney [facility] (42903) 2 severe obesity due to excess calories with serious comorbidity and body mass index (BMI) of 38.0 to 38.9 in adult (HCC) , Facet arthritis of lumbar region 1 Device once daily as needed. size large 1 Each 0 01/31/2018 Active Back Brace misc Indications: Class 01-31-2018 Morgan Mooney [facility] (34407) 2 severe obesity due to excess calories with serious comorbidity and body mass index (BMI) of 38.0 to 38.9 in adult (HCC) , Facet arthritis of lumbar region 1 Device once daily as needed. size large 1 Each 0 01/31/2018 Active Comment: 1 Device once daily as neede d. size large BIPAP BIPAP Initiate BiPAP @ 24- Nik E Mo [facility] cm of water with (76778) humidification. Mask (per patient preference), chin strap, filters, tubing / heated tubing, heated humidity and lifetime supplies. Dx. JESSICA G47.33 327.23 - fax compliance download to [phone] 1 Device 0 09/15/2018 Active BIPAP Initiate BiPAP @ 24/18 cm of 09-15-2018 Nik E Angela [facility] (92739) water with humidification. Mask (per patient preference), chin strap, filters, tubing / heated tubing, heated humidity and lifetime supplies. Dx. JESSICA G47.33 327.23 - fax compliance download to [phone] 1 Device 0 09/15/2018 Active BIPAP Initiate BiPAP @ 24/18 cm of 09-15-2018 Nik E Angeal [facility] (26525) water with humidification. Mask (per patient preference), chin strap, filters, tubing / heated tubing, heated humidity and lifetime supplies. Dx. JESSICA G47.33 327.23 - fax compliance download to [phone] 1 Device 0 09/15/2018 Active BIPAP Initiate BiPAP @ 24/18 cm of 09-15-2018 [facility] (39277) water with humidification. Mask (per patient preference), chin strap, filters, tubing / heated tubing, heated humidity and lifetime supplies. Dx. JESSICA G47.33 327.23 - fax compliance download to [phone] 1 Device 0 09/15/2018 Active BIPAP Initiate BiPAP @ 24/18 cm of 09-15-2018 [facility] (96720) water with humidification. Mask (per patient preference), chin strap, filters, tubing / heated tubing, heated humidity and lifetime supplies. Dx. JESSICA G47.33 327.23 - fax compliance download to [phone] 1 Device 0 09/15/2018 Active BIPAP Initiate BiPAP @ 24/18 cm of 09-15-2018 [facility] (79548) water with humidification. Mask (per patient preference), chin strap, filters, tubing / heated tubing, heated humidity and lifetime supplies. Dx. JESSICA G47.33 327.23 - fax compliance download to [phone] 1 Device 0 09/15/2018 Active BIPAP Initiate BiPAP @ 24/18 cm of 09-15-2018 [facility] (34879) water with humidification. Mask (per patient preference), chin strap, filters, tubing / heated tubing, heated humidity and lifetime supplies. Dx. JESSICA G47.33 327.23 - fax compliance download to [phone] 1 Device 0 09/15/2018 Active BIPAP Initiate BiPAP @ 24/18 cm of 09-15-2018 [facility] (04581) water with humidification. Mask (per patient preference), chin strap, filters, tubing / heated tubing, heated humidity and lifetime supplies. Dx. JESSICA G47.33 327.23 - fax compliance download to [phone] 1 Device 0 09/15/2018 Active BIPAP Initiate BiPAP @ 24/18 cm of 09-15-2018 [facility] (58659) water with humidification. Mask (per patient preference), chin strap, filters, tubing / heated tubing, heated humidity and lifetime supplies. Dx. JESSICA G47.33 327.23 - fax compliance download to [phone] 1 Device 0 09/15/2018 Active BIPAP Initiate BiPAP @ 24/18 cm of 09-15-2018 [facility] (89350) water with humidification. Mask (per patient preference), chin strap, filters, tubing / heated tubing, heated humidity and lifetime supplies. Dx. JESSICA G47.33 327.23 - fax compliance download to [phone] 1 Device 0 09/15/2018 Active BIPAP Initiate BiPAP @ 24/18 cm of 09-15-2018 Nik E [facility] (20656) water with humidification. Mask (per patient preference), chin strap, filters, tubing / heated tubing, heated humidity and lifetime supplies. Dx. JESSICA G47.33 327.23 - fax compliance download to [phone] 1 Device 0 09/15/2018 Active BIPAP Initiate BiPAP @ 24/18 cm of 09-15-2018 [facility] (46057) water with humidification. Mask (per patient preference), chin strap, filters, tubing / heated tubing, heated humidity and lifetime supplies. Dx. JESSICA G47.33 327.23 - fax compliance download to [phone] 1 Device 0 09/15/2018 Active BIPAP Initiate BiPAP @ 24/18 cm of 09-15-2018 [facility] (98114) water with humidification. Mask (per patient preference), chin strap, filters, tubing / heated tubing, heated humidity and lifetime supplies. Dx. JESSICA G47.33 327.23 - fax compliance download to [phone] 1 Device 0 09/15/2018 Active BIPAP Initiate BiPAP @ 24/18 cm of 09-15-2018 [facility] (29341) water with humidification. Mask (per patient preference), chin strap, filters, tubing / heated tubing, heated humidity and lifetime supplies. Dx. JESSICA G47.33 327.23 - fax compliance download to [phone] 1 Device 0 09/15/2018 Active BIPAP Initiate BiPAP @ 24/18 cm of 09-15-2018 Nik [facility] (04479) water with humidification. Mask (per patient preference), chin strap, filters, tubing / heated tubing, heated humidity and lifetime supplies. Dx. JESSICA G47.33 327.23 - fax compliance download to [phone] 1 Device 0 09/15/2018 Active BIPAP Initiate BiPAP @ 24/18 cm of 09-15-2018 Nik Quincy [facility] (83623) water with humidification. Mask (per patient preference), chin strap, filters, tubing / heated tubing, heated humidity and lifetime supplies. Dx. JESSICA G47.33 327.23 - fax compliance download to [phone] 1 Device 0 09/15/2018 Active BIPAP Initiate BiPAP @ 24/18 cm of 09-15-2018 Nik E [facility] (87120) water with humidification. Mask (per patient preference), chin strap, filters, tubing / heated tubing, heated humidity and lifetime supplies. Dx. JESSICA G47.33 327.23 - fax compliance download to [phone] 1 Device 0 09/15/2018 Active Comment: Initiate BiPAP @ 24/18 cm of water with humidification. Mask (per patient preference), chin strap, alida ters, tubing / heated tubing, heated humidity and lifetime supplies. Dx. O SA G47.33 327.23 - fax compliance download to [phone] carvedilol carvedilol (COREG) 3.125 09-16-2019 Deniz Payne [facility] mg tablet Take 2 tablets (44 691) by mouth twice daily. for one week starting on 06/20/16 then will be taking 6.25 x 2 daily . 0 09/16/2019 Active COREG 6.25 MG TABS One 06-19-2016 [facility] tablet by mouth twice (60241) daily CARVEDILOL [id number] Johan Perry MD COREG 3.125 MG TABS One 12-06-2014 - 02-07-2015 Melissa Marks RN [facility] tablet by mouth twice (57606) daily CARVEDILOL [id number] Johan Perry MD Comment: Take 2 tablets by mouth twic e daily. for one week starting on 06/20/16 then will be taking 6.25 x 2 ajay y . cephalexin CEPHALEXIN 500 MG 07-16-2010 - [facility] TABS One tablet by 06-10-2011 Group (44 691) mouth three times daily CEPHALEXIN [id number] Tracee Beard Cholecalciferol Cholecalciferol, 09-16-2019 [facility] Vitamin [facility], [facility] mcg (41500) (2,000 unit) cap Indications: Vitamin D deficiency Take 1 capsule by mouth once daily. 0 09/16/2019 Active Comment: Take 1 capsule by mouth once daily. clopidogrel clopidogrel (PLAVIX) 75 mg 08-29-2019 Morgan Valdez [facility] tablet Indications: (75410) Subsequent non-ST elevation (NSTEMI) myocardial infarction within 4 weeks of initial infarction (HCC) Take 1 tablet by mouth once daily. 90 tablet 3 08/29/2019 Active PLAVIX 75 MG TABS One tablet by mouth daily 03-04-2012 [facility] (65174) CLOPIDOGREL BISULFATE [id number] Rahul Anaya MD Comment: Take 1 tablet by mouth once daily. colestipol COLESTID 1 GM TABS One 11-24-2011 - 01-01-2017 [facility] tablet by mouth twice (16592 ) daily COLESTIPOL HCL 17076034037 Melany Khanna PA-C COLESTID 1 GM TABS Two 11-24-2011 [facility] tablets by mouth twice Group (44 691) daily COLESTIPOL HCL [id number] Johan Perry MD COLESTID 1 GM TABS One 11-24-2011 Melissa [facility] tablet by mouth twice Group (446 91) daily COLESTIPOL HCL 38668167595 [place] Kevan Perry MD COLESTID 1 GM TABS Two 11-24-2011 Melissa [facility] tablets by mouth twice Group (44 691) daily COLESTIPOL HCL 46792007029 Johan Perry MD COLESTID 1 GM TABS Two 11-24-2011 Vicki Kirkpatrick RN [facility] tablets by mouth twice Group (44 341) daily COLESTIPOL HCL 90251450496 Johan Perry MD COLESTID 1 GM TABS One 11-24-2011 Riana Francis RN [facility] tablet by mouth twice Group (446 91) daily COLESTIPOL HCL 98926524239 Johan Perry MD COLESTID 1 GM TABS One 11-24-2011 - [facility] tablet by mouth twice 06-19-2016 Group (446 91) daily COLESTIPOL HCL [id number] Johan Perry MD COLESTID 1 GM TABS One 11-24-2011 Melissa Marks RN [facility] by mouth twice Group (446 91) daily COLESTIPOL HCL [id number] Johan Perry MD COLESTID 1 GM TABS One 11-24-2011 Riana Francis RN [facility] by mouth twice Group (446 91) daily COLESTIPOL HCL 40917758213 Johan Perry MD COLESTID 1 GM TABS One 11-24-2011 - [facility] by mouth twice 06-19-2016 Group (446 91) daily COLESTIPOL HCL 55783788584 Johan Perry MD COLESTID 1 GM TABS Two 11-24-2011 Melissa Marks RN [facility] tablets by mouth twice Group (44 891) daily COLESTIPOL HCL [id number] Johan Perry MD COLESTID 1 GM TABS Two 11-24-2011 Vicki Kirkpatrick RN [facility] tablets by mouth twice Group (44 601) daily COLESTIPOL HCL 60920675127 Johan Perry MD COLESTID 1 GM TABS One 11-24-2011 Riana Francis RN [facility] by mouth twice Group (448 91) daily COLESTIPOL HCL 10101318490 Johan Kevan Perry MD COLESTID 1 GM TABS One 11-24-2011 Melissa Jesica Selina RN [facility] by mouth twice Group (446 91) daily COLESTIPOL HCL [id number] Johan Kevan Perry MD COLESTID 1 GM TABS One 11-24-2011 - [facility] tablet by mouth twice 06-19-2016 Group (446 91) daily COLESTIPOL HCL 44957327355 Johan Kevan Perry MD COLESTID 1 GM TABS Two 11-24-2011 Melissa Marks RN [facility] tablets by mouth twice Group (44 691) daily COLESTIPOL HCL [id number] [place] Kevan Perry MD COLESTID 1 GM TABS Two 11-24-2011 Vicki Kirkpatrick RN [facility] tablets by mouth twice Group (44 691) daily COLESTIPOL HCL [id number] Johan Perry MD COLESTID 1 GM TABS Two 11-24-2011 Melissa Marks RN [facility] tablets by mouth twice Group (44 691) daily COLESTIPOL HCL 14473028213 Johan Perry MD COLESTID 1 GM TABS Two 11-24-2011 Vicki Kirkpatrick RN [facility] tablets by mouth twice Group (44 691) daily COLESTIPOL HCL [id number] [place] Kevan Perry MD COLESTID 1 GM TABS One 11-24-2011 - [facility] by mouth twice 06-19-2016 Group (446 91) daily COLESTIPOL HCL [id number] Johan Kevan Perry MD COLESTID 1 GM TABS One 11-24-2011 Melissa Marks RN [facility] tablet by mouth twice Group (446 91) daily COLESTIPOL HCL [id number] [place] Kevan Perry MD COLESTID 1 GM TABS One 11-24-2011 Riana Francis RN [facility] tablet by mouth twice Group (446 91) daily COLESTIPOL HCL 17667043734 [place] Kevan Perry MD COLESTID 1 GM TABS Two 11-24-2011 Vicki Kirkpatrick RN [facility] tablets by mouth twice Group (44 261) daily COLESTIPOL HCL [id number] Johan S MD [place] COLESTID 1 GM TABS One 11-24-2011 Melissa Marks RN [facility] tablet by mouth twice Group (444 91) daily COLESTIPOL HCL 83705706287 Johan Kevan Perry MD COLESTID 1 GM TABS Two 11-24-2011 Melissa Marks RN [facility] tablets by mouth twice Group (44 751) daily COLESTIPOL HCL 60050628556 Johan Perry MD COLESTID 1 GM TABS One 11-24-2011 Riana Francis RN [facility] tablet by mouth twice Group (449 91) daily COLESTIPOL HCL [id number] MD ENRICO RogersSTID 1 GM TABS One 11-24-2011 - [facility] by mouth twice 06-19-2016 Group (446 91) daily COLESTIPOL HCL 82008818640 Johan Perry MD COLESTID 1 GM TABS One 11-24-2011 Riana Francis RN [facility] by mouth twice Group (446 91) daily COLESTIPOL HCL [id number] [place] S MD [place] COLESTID 1 GM TABS Two 11-24-2011 Vicki Kirkpatrick RN [facility] tablets by mouth twice Group (44 001) daily COLESTIPOL HCL 86150405590 [place] Kevan Perry MD COLESTID 1 GM TABS One 11-24-2011 Melissa Marks RN [facility] by mouth twice Group (445 91) daily COLESTIPOL HCL 25930704834 Johan Kevan Perry MD COLESTID 1 GM TABS One 11-24-2011 - [facility] tablet by mouth twice 06-19-2016 Group (446 91) daily COLESTIPOL HCL [id number] [place] Kevan Perry MD COLESTID 1 GM TABS Two 11-24-2011 Melissa Marks RN [facility] tablets by mouth twice Group (44 691) daily COLESTIPOL HCL 49642380021 Johan Kevan Perry MD COLESTID 1 GM TABS One 11-24-2011 Melissa Jesica Selina RN [facility] by mouth twice Group (446 91) daily COLESTIPOL HCL [id number] [place] Kevan Perry MD COLESTID 1 GM TABS Two 11-24-2011 Vicki Kirkpatrick RN [facility] tablets by mouth twice Group (44 691) daily COLESTIPOL HCL 47738841441 [place] Perry MD COLESTID 1 GM TABS One 11-24-2011 Riana Mathew Penny RN [facility] tablet by mouth twice Group (446 91) daily COLESTIPOL HCL [id number] Johan Perry MD COLESTID 1 GM TABS Two 11-24-2011 Melissa Marks RN [facility] tablets by mouth twice Group (44 661) daily COLESTIPOL HCL [id number] Johan Perry MD COLESTID 1 GM TABS One 11-24-2011 - [facility] by mouth twice 06-19-2016 Group (446 91) daily COLESTIPOL HCL 08118842931 Johan Perry MD COLESTID 1 GM TABS Two 11-24-2011 Melissa Marks RN [facility] tablets by mouth twice Group (44 641) daily COLESTIPOL HCL [id number] JohanMD ENRICO SuhSTID 1 GM TABS One 11-24-2011 - [facility] tablet by mouth twice 06-19-2016 Group (446 91) daily COLESTIPOL HCL [id number] Johan Perry MD COLESTID 1 GM TABS One 11-24-2011 Riana Francis RN [facility] tablet by mouth twice Group (446 91) daily COLESTIPOL HCL [id number] Johan Perry MD COLESTID 1 GM TABS Two 11-24-2011 Vicki Kirkpatrick RN [facility] tablets by mouth twice Group (44 691) daily COLESTIPOL HCL [id number] Johan Perry MD COLESTID 1 GM TABS One 11-24-2011 Melissa Marks RN [facility] tablet by mouth twice Group (446 91) daily COLESTIPOL HCL [id number] Johan Perry MD COLESTID 1 GM TABS Two 11-24-2011 Vicki Kirkpatrick RN [facility] tablets by mouth twice Group (44 691) daily COLESTIPOL HCL [id number] Johan Perry MD COLESTID 1 GM TABS Two 11-24-2011 Melissa Marks RN [facility] tablets by mouth twice Group (44 691) daily COLESTIPOL HCL [id number] Johan Perry MD COLESTID 1 GM TABS One 11-24-2011 - [facility] tablet by mouth twice 06-19-2016 Group (446 91) daily COLESTIPOL HCL [id number] Johan Perry MD COLESTID 1 GM TABS One 11-24-2011 Melissa Marks RN [facility] tablet by mouth twice Group (446 91) daily COLESTIPOL HCL 81218714171 Johan Perry MD COLESTID 1 GM TABS One 11-24-2011 Riana Francis RN [facility] tablet by mouth twice Group (446 91) daily COLESTIPOL HCL [id number] Johan Perry MD Comment: Take 1 g by mouth twice ajay y. ezetimibe ZETIA 10 MG TABS One 07-16-2010 - [facility] tablet by mouth daily 08-26-2011 Group (37634) EZETIMIBE [id number] Rahul Anaya MD fenofibrate fenofibrate 08-10-2015 [facility] nanocrystallized (TRICOR) Gr oup (31918) 145 mg tablet Take 1 tablet by mouth once daily. 0 08/28/2015 Active Comment: Take 1 tablet by mouth once daily. flash glucose sensor flash glucose sensor 08-09-2018 [facility] (FREESTYLE ANITRA 14 (FREESTYLE ANITRA 14 ( 48052) DAY SENSOR) kit DAY SENSOR) kit Indications: Type 2 diabetes mellitus with st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, with long-term current use of insulin (HCC) 1 Each four times daily. 1 Kit 08/09/2018 Active flash glucose sensor (FREESTYLE 08-09-2018 [facility] ([id number]) ANITRA 14 DAY SENSOR) kit Indications: Type 2 diabetes mellitus with st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, with long-term current use of insulin (HCC) 1 Each four times daily. 1 Kit 08/09/2018 Active flash glucose sensor (FREESTYLE 08-09-2018 [facility] (75002) ANITRA 14 DAY SENSOR) kit Indications: Type 2 diabetes mellitus with st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, with long-term current use of insulin (HCC) 1 Each four times daily. 1 Kit 08/09/2018 Active flash glucose sensor (FREESTYLE 08-09-2018 [facility] (93792) ANITRA 14 DAY SENSOR) kit Indications: Type 2 diabetes mellitus with st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, with long-term current use of insulin (HCC) 1 Each four times daily. 1 Kit 08/09/2018 Active flash glucose sensor (FREESTYLE 08-09-2018 [facility] (75043) ANITRA 14 DAY SENSOR) kit Indications: Type 2 diabetes mellitus with st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, with long-term current use of insulin (HCC) 1 Each four times daily. 1 Kit 08/09/2018 Active flash glucose sensor (FREESTYLE 05-13-2019 [facility] ([id number]) ANITRA 14 DAY SENSOR) kit Indications: Type 2 diabetes mellitus with st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, with long-term current use of insulin (HCC) 1 Each four times daily. 1 Kit 08/09/2018 Active flash glucose sensor (FREESTYLE 08-09-2018 [facility] (35020) ANITRA 14 DAY SENSOR) kit Indications: Type 2 diabetes mellitus with st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, with long-term current use of insulin (HCC) 1 Each four times daily. 1 Kit 08/09/2018 Active flash glucose sensor (FREESTYLE 08-09-2018 [facility] (27540) ANITRA 14 DAY SENSOR) kit Indications: Type 2 diabetes mellitus with st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, with long-term current use of insulin (HCC) 1 Each four times daily. 1 Kit 08/09/2018 Active flash glucose sensor (FREESTYLE 08-09-2018 [facility] (16739) ANITRA 14 DAY SENSOR) kit Indications: Type 2 diabetes mellitus with st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, with long-term current use of insulin (HCC) 1 Each four times daily. 1 Kit 08/09/2018 Active flash glucose sensor (FREESTYLE 08-09-2018 [facility] (42614) ANITRA 14 DAY SENSOR) kit Indications: Type 2 diabetes mellitus with st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, with long-term current use of insulin (HCC) 1 Each four times daily. 1 Kit 08/09/2018 Active flash glucose sensor (FREESTYLE 08-09-2018 [facility] (94155) ANITRA 14 DAY SENSOR) kit Indications: Type 2 diabetes mellitus with st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, with long-term current use of insulin (HCC) 1 Each four times daily. 1 Kit 08/09/2018 Active flash glucose sensor (FREESTYLE 08-09-2018 [facility] (96080) ANITRA 14 DAY SENSOR) kit Indications: Type 2 diabetes mellitus with st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, with long-term current use of insulin (HCC) 1 Each four times daily. 1 Kit 08/09/2018 Active flash glucose sensor (FREESTYLE 08-09-2018 [facility] (72725) ANITRA 14 DAY SENSOR) kit Indications: Type 2 diabetes mellitus with st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, with long-term current use of insulin (HCC) 1 Each four times daily. 1 Kit 08/09/2018 Active flash glucose sensor (FREESTYLE 08-09-2018 [facility] (55055) ANITRA 14 DAY SENSOR) kit Indications: Type 2 diabetes mellitus with st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, with long-term current use of insulin (HCC) 1 Each four times daily. 1 Kit 08/09/2018 Active flash glucose sensor (FREESTYLE 08-09-2018 [facility] (48023) ANITRA 14 DAY SENSOR) kit Indications: Type 2 diabetes mellitus with st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, with long-term current use of insulin ([facility]) 1 Each four times daily. 1 Kit 08/09/2018 Active flash glucose sensor (FREESTYLE 08-09-2018 [facility] (21333) ANITRA 14 DAY SENSOR) kit Indications: Type 2 diabetes mellitus with st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, with long-term current use of insulin ([facility]) 1 Each four times daily. 1 Kit 08/09/2018 Active flash glucose sensor (FREESTYLE 08-09-2018 [facility] (27808) ANITRA 14 DAY SENSOR) kit Indications: Type 2 diabetes mellitus with st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, with long-term current use of insulin ([facility]) 1 Each four times daily. 1 Kit 08/09/2018 Active Comment: 1 Each four times daily. furosemide furosemide (LASIX) 40 mg 04-19-2019 [facility] tablet Indications: Acute (4 4691) on chronic systolic congestive heart failure (HCC) Take 1 tablet by mouth twice daily. 60 tablet 04/19/2019 Active LASIX 40 MG TABS One tablet by 03-14-2014 [facility] (89824) mouth twice daily FUROSEMIDE [id number] Vicki Kirkpatrick RN LASIX 40 MG TABS One tablet by 03-14-2014 [facility] (33665) mouth daily FUROSEMIDE [id number] Johan Perry MD LASIX 40 MG TABS One tablet by 03-08-2013 - 09-06-2013 [facility] (76460) mouth daily FUROSEMIDE [id number] Johan Perry MD Comment: Take 1 tablet by mouth twice daily. gabapentin gabapentin (NEURONTIN) 10-27-2019 - Morgan Mo[facility] 300 mg capsule 02-05-2020 Group ([id number]) Indications: Type 2 diabetes mellitus with diabetic neuropathy, with long-term current use of insulin (HCC) Take 3 capsules by mouth three times daily for 30 days. 270 capsule 0 01/06/2020 02/05/2020 Active GABAPENTIN 100 MG CAPS 6 tablets by mouth 09-06-2013 [facility] ([id number]) three times a day GABAPENTIN [id number] Johan Perry MD GABAPENTIN 100 MG CAPS One tablet by mouth 09-06-2013 [facility] (09915) three times daily GABAPENTIN [id number] Melany Khanna PA-C GABAPENTIN 100 MG CAPS One tablet by mouth 09-06-2013 [facility] (57457) daily GABAPENTIN [id number] Melissa Marks RN GABAPENTIN 600 MG TABS One tablet by mouth 09-06-2013 [facility] (00341) three times daily GABAPENTIN [id number] Johan Perry MD Comment: Take 3 capsules by mouth thr ee times daily for 30 days. hydroCHLOROthiazide HYDROCHLOROTHIAZIDE 12.5 MG 10-09-2011 - [facility] TABS One tablet by mouth 12-11-2014 [facility] (10869) daily- STOP replaced by Lasix HYDROCHLOROTHIAZIDE [id number] Melissa Marks RN HYDROCHLOROTHIAZIDE 25 MG TABS One 09-13-2010 - 06-10-2011 [facility] tablet by mouth daily (11704) HYDROCHLOROTHIAZIDE [id number] Tracee Beard insulin glargine insulin glargine 01-09-2020 [facility] (BASAGLAR KWIKPEN U-100 Grou p (82448) INSULIN) 100 unit/mL (3 mL) Inject 36 Units subcutaneously every 12 hours. 0 01/09/2020 Active LANTUS 100 UNIT/ML SOLN take as 08-26-2011 [facility] (24029) directed INSULIN GLARGINE [id number] Rahul Anaya MD LANTUS 100 UNIT/ML SOLN take as 08-26-2011 [facility] (56113) directed INSULIN GLARGINE [id number] Rahul Anaya MD LANTUS 100 UNIT/ML SOLN take as 08-26-2011 [facility] (33651) directed INSULIN GLARGINE [id number] Rahul Anaya MD LANTUS 100 UNIT/ML SOLN take as 08-26-2011 [facility] (00192) directed INSULIN GLARGINE [id number] Rahul Anaya MD LANTUS 100 UNIT/ML SOLN take as 08-26-2011 [facility] (71496) directed INSULIN GLARGINE [id number] Rahul Anaya MD LANTUS 100 UNIT/ML SOLN take as 08-26-2011 [facility] (06897) directed INSULIN GLARGINE [id number] Rahul Anaya MD LANTUS 100 UNIT/ML SOLN take as 08-26-2011 [facility] (73329) directed INSULIN GLARGINE [id number] Rahul Anaya MD LANTUS 100 UNIT/ML SOLN take as 08-26-2011 [facility] (40956) directed INSULIN GLARGINE [id number] Rahul Anaya MD LANTUS 100 UNIT/ML SOLN take as 08-26-2011 [facility] (03227) directed INSULIN GLARGINE [id number] Rahul Anaya MD LANTUS 100 UNIT/ML SOLN take as 08-26-2011 [facility] (51672) directed INSULIN GLARGINE [id number] Rahul Anaya MD LANTUS 100 UNIT/ML SOLN take as 08-26-2011 [facility] (16573) directed INSULIN GLARGINE [id number] Rahul Anaya MD insulin glargine (BASAGLAR KWIKPEN [facility] (77461) U-100 INSULIN) 100 unit/mL (3 mL) Inject 34 Units subcutaneously every 12 hours. 0 Active insulin glargine (BASAGLAR KWIKPEN [facility] (58896) U-100 INSULIN) 100 unit/mL (3 mL) Inject 30 Units subcutaneously every 12 hours. 0 Active Comment: Inject 30 Units subcutaneous ly every 12 hours. Inject 34 Units subcutaneous ly every 12 hours. Inject 36 Units subcutaneous ly every 12 hours. insulin lispro insulin lispro (HUMALOG 01-09-2020 [facility] KWIKPEN INSULIN) 100 (60293) unit/mL Inject 21 Units subcutaneously three times daily before meals. Plus sliding scale as directed ( 1 unit for every 50 mg/dL above 150 mg/dL) 0 01/09/2020 Active HUMALOG 100 UNIT/ML SOLN 12-11-[address] [facility] units sq tid before meals (08369 ) INSULIN LISPRO (HUMAN) [id number] Melissa Marks RN HUMALOG 100 UNIT/ML SOLN 12-11-[address] [facility] units sq before meals (67256) INSULIN LISPRO (HUMAN) [id number] Johan Perry MD HUMALOG 100 UNIT/ML SOLN 12-11-[address] [facility] units sq before meals (01549) INSULIN LISPRO (HUMAN) [id number] Johan Perry MD HUMALOG 100 UNIT/ML SOLN 12-11-[address] [facility] units sq before meals (07664) INSULIN LISPRO (HUMAN) [id number] Johan Perry MD HUMALOG 100 UNIT/ML SOLN 12-11-[address] [facility] units sq before meals (83153) INSULIN LISPRO (HUMAN) [id number] Johan Perry MD HUMALOG 100 UNIT/ML SOLN 12-11-[address] [facility] units sq before meals (52875) INSULIN LISPRO (HUMAN) [id number] Johan Perry MD HUMALOG 100 UNIT/ML SOLN 12-11-[address] [facility] units sq before meals (25117) INSULIN LISPRO (HUMAN) [id number] Johan Perry MD HUMALOG 100 UNIT/ML SOLN 12-11-[address] [facility] units sq before meals (30587) INSULIN LISPRO (HUMAN) [id number] Johan Perry MD HUMALOG 100 UNIT/ML SOLN 12-11-[address] [facility] units sq before meals (68836) INSULIN LISPRO (HUMAN) [id number] Johan Perry MD HUMALOG 100 UNIT/ML SOLN 12-11-[address] [facility] units sq before meals (62948) INSULIN LISPRO (HUMAN) [id number] Johan Perry MD HUMALOG 100 UNIT/ML SOLN 12-11-[address] [facility] units sq before meals (79144) INSULIN LISPRO (HUMAN) [id number] Johan Perry MD HUMALOG 100 UNIT/ML SOLN 12-11-[address] [facility] units sq before meals (29225) INSULIN LISPRO (HUMAN) [id number] Johan Perry MD HUMALOG 100 UNIT/ML SOLN 12-11-[address] [facility] units sq before meals (99495) INSULIN LISPRO (HUMAN) [id number] Johan Perry MD HUMALOG 100 UNIT/ML SOLN 12-11-[address] [facility] units sq before meals (61792) INSULIN LISPRO (HUMAN) [id number] Johan Perry MD HUMALOG 100 UNIT/ML SOLN 12-11-[address] [facility] units sq before meals (48723) INSULIN LISPRO (HUMAN) [id number] Johan Perry MD HUMALOG 100 UNIT/ML SOLN 12-11-[address] [facility] units sq before meals (07546) INSULIN LISPRO (HUMAN) [id number] Johan Perry MD HUMALOG 100 UNIT/ML SOLN 12-11-[address] [facility] units sq before meals (86405) INSULIN LISPRO (HUMAN) [id number] Johan Perry MD HUMALOG 100 UNIT/ML SOLN 12-11-[address] [facility] units sq before meals (74625) INSULIN LISPRO (HUMAN) [id number] Johan Perry MD HUMALOG 100 UNIT/ML SOLN 12-11-[address] [facility] units sq before meals (81167) INSULIN LISPRO (HUMAN) [id number] Johan Perry MD HUMALOG 100 UNIT/ML SOLN 12-11-[address] [facility] units sq before meals (72978) INSULIN LISPRO (HUMAN) [id number] Johan Perry MD HUMALOG SOLN Take as 07-16-2010 - 08-26-2011 [facility] directed (95437) INSULIN LISPRO (HUMAN) SOLN [id number] Rahul Anaya MD HUMALOG SOLN Take as 07-16-2010 [facility] directed INSULIN (446 91) LISPRO (HUMAN) SOLN [id number] Tracee Beard HUMALOG SOLN Take as 07-16-2010 [facility] directed INSULIN (446 91) LISPRO (HUMAN) SOLN [id number] Tracee Beard HUMALOG SOLN Take as 07-16-2010 - 08-26-2011 [facility] directed (40637) INSULIN LISPRO (HUMAN) SOLN [id number] Rahul Anaya MD HUMALOG SOLN Take as 07-16-2010 - 08-26-2011 [facility] directed (86998) INSULIN LISPRO (HUMAN) SOLN [id number] Rahul Anaya MD HUMALOG SOLN Take as 07-16-2010 [facility] directed INSULIN (446 91) LISPRO (HUMAN) SOLN [id number] Tracee Beard HUMALOG SOLN Take as 07-16-2010 [facility] directed INSULIN (446 91) LISPRO (HUMAN) SOLN [id number] Tracee Beard HUMALOG SOLN Take as 07-16-2010 - 08-26-2011 [facility] directed (09132) INSULIN LISPRO (HUMAN) SOLN [id number] Rahul Anaya MD HUMALOG SOLN Take as 07-16-2010 - [facility]26-[facility] (23930) INSULIN LISPRO (HUMAN) SOLN [id number] Rahul Anaya MD HUMALOG SOLN Take as 07-16-2010 [facility] directed INSULIN (446 91) LISPRO (HUMAN) SOLN [id number] Tarcee Beard HUMALOG SOLN Take as 07-16-2010 - 08-26-2011 [facility] directed (11281) INSULIN LISPRO (HUMAN) SOLN [id number] Rahul Anaya MD HUMALOG SOLN Take as 07-16-2010 [facility] directed INSULIN (446 91) LISPRO (HUMAN) SOLN [id number] Tracee Beard HUMALOG SOLN Take as 07-16-2010 [facility] directed INSULIN (446 91) LISPRO (HUMAN) SOLN [id number] Tracee Beard HUMALOG SOLN Take as 07-16-2010 - 08-26-2011 [facility] directed (74021) INSULIN LISPRO (HUMAN) SOLN [id number] Rahul Anaya MD HUMALOG SOLN Take as 07-16-2010 [facility] directed INSULIN (446 91) LISPRO (HUMAN) SOLN [id number] Tracee Beard HUMALOG SOLN Take as 07-16-2010 - 08-26-2011 [facility] directed (85978) INSULIN LISPRO (HUMAN) SOLN [id number] Rahul Anaya MD HUMALOG SOLN Take as 07-16-2010 - 08-26-2011 [facility] directed (99176) INSULIN LISPRO (HUMAN) SOLN [id number] Rahul Anaya MD HUMALOG SOLN Take as 07-16-2010 [facility] directed INSULIN (446 91) LISPRO (HUMAN) SOLN [id number] Tracee Beard HUMALOG SOLN Take as 07-16-2010 [facility] directed INSULIN (446 91) LISPRO (HUMAN) SOLN [id number] Tracee Beard HUMALOG SOLN Take as 07-16-2010 - 08-26-2011 [facility] directed (39100) INSULIN LISPRO (HUMAN) SOLN [id number] Rahul Anaya MD HUMALOG SOLN Take as 07-16-2010 - 08-26-2011 [facility] directed (68096) INSULIN LISPRO (HUMAN) SOLN [id number] Rahul Anaya MD HUMALOG SOLN Take as 07-16-2010 [facility] directed INSULIN (446 91) LISPRO (HUMAN) SOLN [id number] Tracee Roblesward HUMALOG SOLN Take as 07-16-2010 - 08-26-2011 [facility] directed (43937) INSULIN LISPRO (HUMAN) SOLN [id number] Rahul Anaya MD HUMALOG SOLN Take as 07-16-2010 [facility] directed INSULIN (446 91) LISPRO (HUMAN) SOLN [id number] Tracee Beard HUMALOG SOLN Take as 07-16-2010 [facility] directed INSULIN (446 91) LISPRO (HUMAN) SOLN [id number] Tracee Beard HUMALOG SOLN Take as 07-16-2010 - 08-26-[facility] (91026) INSULIN LISPRO (HUMAN) SOLN [id number] Rahul Anaya MD HUMALOG SOLN Take as 07-16-2010 [facility]ULIN (446 91) LISPRO (HUMAN) SOLN [id number] Tracee Beard HUMALOG SOLN Take as 07-16-2010 - 08-26-[facility] (93303) INSULIN LISPRO (HUMAN) SOLN [id number] Rahul Anaya MD HUMALOG SOLN Take as 07-16-2010 [facility] directed INSULIN (446 91) LISPRO (HUMAN) SOLN [id number] Tracee Beard HUMALOG SOLN Take as 07-16-2010 - 08-26-[facility] (51119) INSULIN LISPRO (HUMAN) SOLN [id number] Rahul Anaya MD HUMALOG SOLN Take as 07-16-2010 - 08-26-[facility] (33198) INSULIN LISPRO (HUMAN) SOLN [id number] Rahul Anaya MD HUMALOG SOLN Take as 07-16-[facility] directed INSULIN (446 91) LISPRO (HUMAN) SOLN [id number] Tracee Beard insulin lispro (HUMALOG [facility] KWIKPEN INSULIN) 100 unit/mL (44 698) Inject 17 Units subcutaneously three times daily before meals. Plus sliding scale as directed ( 1 unit for every 50 mg/dL above 150 mg/dL) 0 Active Comment: Inject 17 Units subcutaneous ly three times daily before meals. Plus sliding scale as directed ( 1 unit f or every 50 mg/dL above 150 mg/dL) Inject 21 Units subcutaneous ly three times daily before meals. Plus sliding scale as directed ( 1 unit f or every 50 mg/dL above 150 mg/dL) insulin, glulisine, human APIDRA SOLOSTAR 100 12-11-2014 [facility] UNIT/ML SOPN as directed (44 760) INSULIN GLULISINE [id number] Vicki Kirkpatrick RN APIDRA SOLOSTAR 100 UNIT/ML SOPN 12-11-2014 [facility] (52361) as directed INSULIN GLULISINE [id number] Vicki Kirkpatrick RN APIDRA SOLOSTAR 100 UNIT/ML SOPN 12-11-2014 [facility] (23149) as directed INSULIN GLULISINE [id number] Vicki Kirkpatrick RN APIDRA SOLOSTAR 100 UNIT/ML SOPN 12-11-2014 [facility] (44836) as directed INSULIN GLULISINE [id number] Vicki Kirkpatrick RN APIDRA SOLOSTAR 100 UNIT/ML SOPN 12-11-2014 [facility] (77123) as directed INSULIN GLULISINE [id number] Vicki Kirkpatrick RN APIDRA SOLOSTAR 100 UNIT/ML SOPN 12-11-2014 [facility] (90205) as directed INSULIN GLULISINE [id number] Vicki Kirkpatrick RN APIDRA SOLOSTAR 100 UNIT/ML SOPN 12-11-2014 [facility] (59780) as directed INSULIN GLULISINE [id number] Vicki Kirkpatrick RN APIDRA SOLOSTAR 100 UNIT/ML SOPN 12-11-2014 [facility] (15296) as directed INSULIN GLULISINE [id number] Vicki Kirkpatrick RN APIDRA SOLOSTAR 100 UNIT/ML SOPN 12-11-2014 [facility] (35873) as directed INSULIN GLULISINE [id number] Vicki Kirkpatrick RN APIDRA SOLOSTAR 100 UNIT/ML SOPN 12-11-2014 [facility] (06735) as directed INSULIN GLULISINE [id number] Vicki Kirkpatrick RN APIDRA SOLOSTAR 100 UNIT/ML SOPN 12-11-2014 [facility] (15248) as directed INSULIN GLULISINE [id number] Vicki Kirkpatrick RN APIDRA SOLN take as directed 08-26-2011 [facility] (61025) INSULIN GLULISINE SOLN [id number] Rahul Anaya MD APIDRJesica SOLN take as directed 08-26-2011 - 12-27-2014 [facility] (78253) INSULIN GLULISINE SOLN [id number] MD CRYSTAL RogersDRJesica SOLN take as directed 08-26-2011 [facility] (05217) INSULIN GLULISINE SOLN [id number] Rahul ROJASDRJesica SOLN take as directed 08-26-2011 - 12-27-2014 [facility] (54811) INSULIN GLULISINE SOLN [id number] MD RADHA Rogers SOLN take as directed 08-26-2011 - 12-27-2014 [facility] (04725) INSULIN GLULISINE SOLN [id number] MD RADHA Rogers SOLN take as directed 08-26-2011 [facility] (21615) INSULIN GLULISINE SOLN [id number] Rahul GARCIA SOLN take as directed 08-26-2011 - 12-27-2014 [facility] (50072) INSULIN GLULISINE SOLN [id number] MD RADHA Rogers SOLAshwin take as directed 08-26-2011 [facility] (51020) INSULIN GLULISINE SOLN [id number] Rahul ESCOBEDO take as directed 08-26-2011 [facility] (19890) INSULIN GLULISINE SOLN [id number] Rahul ESCOBEDO take as directed 08-26-2011 - 12-27-2014 [facility] (97571) INSULIN GLULISINE SOLN [id number] MD RADHA Rogers take as directed 08-26-2011 [facility] (03526) INSULIN GLULISINE SOLN [id number] Rahul GARCIA SOLAshwin take as directed 08-26-2011 - 12-27-2014 [facility] (45945) INSULIN GLULISINE SOLN [id number] MD RADHA Rogers take as directed 08-26-2011 - 12-27-2014 [facility] (97818) INSULIN GLULISINE SOLN [id number] MD RADHA Rogers take as [facility]-26-[facility] (32812[facility] INSULIN GLULISINE SOLN [id number] Rahul ESCOBEDO take as directed 08-26-2011 - 12-27-2014 [facility] (77680) INSULIN GLULISINE SOLN [id number] MD RADHA Rogers take as directed 08-26-[facility] (94145) INSULIN GLULISINE SOLN [id number] Rahul ESCOBEDO take as directed 08-26-2011 [facility] (81378) INSULIN GLULISINE SOLN [id number] Rahul GARCIA SOLAshwin take as directed 08-25-2011 - 12-27-2014 [facility] (34757) INSULIN GLULISINE SOLN [id number] MD RADHA Rogers SOLN take as directed 08-26-2011 [facility] (90630) INSULIN GLULISINE SOLN [id number] Rahul GARCIA SOLAshwin take as directed 08-26-2011 - 12-27-2014 [facility] (42244) INSULIN GLULISINE SOLN [id number] MD RADHA Rogers SOLN take as directed 08-26-2011 - 12-27-2014 [facility] (57675) INSULIN GLULISINE SOLN [id number] MD RADHA Rogers SOLN take as directed 08-26-2011 [facility] (22351) INSULIN GLULISINE SOLN [id number] Rahul GARCIA SOLAshwin take as directed 08-26-2011 - 12-27-2014 [facility] (18345) INSULIN GLULISINE SOLN [id number] MD RADHA Rogers SOLAshwin take as directed 08-26-2011 [facility] (44429) INSULIN GLULISINE SOLN [id number] Rahul GARCIA SOLAshwin take as directed 08-26-2011 - 12-27-2014 [facility] (87581) INSULIN GLULISINE SOLN [id number] MD RADHA Rogers SOLN take as directed 08-26-2011 [facility] (34912) INSULIN GLULISINE SOLN [id number] Rahul GARCIA SOLAshwin take as directed 08-26-2011 [facility] (63074) INSULIN GLULISINE SOLN [id number] Rahul GARCIA SOLN take as directed 08-26-2011 - 12-27-2014 [facility] (35215) INSULIN GLULISINE SOLN [id number] MD RADHA Rogers SOLAshwin take as directed 08-26-2011 [facility] (96412) INSULIN GLULISINE SOLN [id number] Rahul GARCIA SOLAshwin take as directed 08-26-2011 - 12-27-2014 [facility] (46397) INSULIN GLULISINE SOLN [id number] MD RADHA Rogers SOLN take as directed 08-26-2011 - 12-27-2014 [facility] (26642) INSULIN GLULISINE SOLN [id number] MD RADHA Rogers SOLAshwin take as directed 08-26-2011 [facility] (37662) INSULIN GLULISINE SOLN [id number] Rahul Anaya MD insulin, insulin NPH injection 10-13-2019 - Deniz valerio isophane (HumuLIN N,NovoLIN N) 12-12-2019 [facility], 32 units subcutaneous LLC (4 4691) before breakfast and 32 units at bedtime 0 10/13/2019 12/12/2019 Discontinued (Changing Therapy/Dosage Form) HUMULIN N 100 UNIT/ML SUSP take as 08-26-2011 [facility] directed INSULIN ISOPHANE (01350) HUMAN [id number] Johan Perry MD HUMULIN N 100 UNIT/ML SUSP take as 08-26-2011 [facility] directed INSULIN ISOPHANE (58628) HUMAN [id number] Johan Perry MD Comment: 32 units subcutaneous before breakfast and 32 units at bedtime isosorbide isosorbide mononitrate ER 09-22-2014 [facility] (IMDUR) 30 mg 24 hr tablet ( 76323) Take 60 mg by mouth once daily. 0 06/05/2016 Active ISOSORBIDE MONONITRATE ER 60 MG 09-22-2014 [facility] (10007) [id number] One tablet by mouth daily ISOSORBIDE MONONITRATE [id number] Vicki Kirkpatrick RN ISOSORBIDE MONONITRATE ER 60 MG 09-22-2014 - 02-07-2015 [facility] (27193) [id number] One tablet by mouth twice daily ISOSORBIDE MONONITRATE [id number] Vicki Kirkpatrick RN ISOSORBIDE MONONITRATE ER 60 MG 09-22-2014 [facility] (27201) [id number] One tablet by mouth daily- this was increased from 30 mg ISOSORBIDE MONONITRATE [id number] RAUL TimmonsC Comment: Take 60 mg by mouth once rustam ly. isosorbide ISORDIL TITRADOSE 06-27-2011 - Rahul Ludwig art dinitrate TABS 20mg, One 08-26-2011 [facility] (4469 1) tablet by mouth three times daily ISOSORBIDE DINITRATE TABS [id number] Rahul Anaya MD ISORDIL TITRADOSE TABS 20mg, One 06-26-2011 - 08-26-2011 [facility] (89769) tablet by mouth three times daily ISOSORBIDE DINITRATE TABS [id number] Rahul Anaya MD lansoprazole PREVACID 30 MG CPDR As 07-16-2010 - 06-09-2011 [facility] needed (09595) LANSOPRAZOLE [id number] Rahul Anaya MD PREVACID 30 MG CPDR As needed 07-16-2010 - 06-10-2011 [facility] (51365) LANSOPRAZOLE [id number] Tracee Beard latanoprost latanoprost (XALATAN) 0.005 % [facility] Provide r [facility] (05229) ophthalmic solution Use 1 Drop in both eyes three times daily. 0 Active Comment: Use 1 Drop in both eyes thre e times daily. lisinopril lisinopril (ZESTRIL, 07-19-2019 eDniz Garsia [facility] PRINIVIL) 20 mg tablet (4469 1) Take 1 tablet by mouth once daily. 90 tablet 1 07/19/2019 Active LISINOPRIL 40 MG TABS One 06-10-2011 Melissa Marks RN [facility] tablet by mouth daily (01818) LISINOPRIL [id number] Johan Perry MD LISINOPRIL 20 MG TABS 06-10-2011 [facility] art Group LISINOPRIL (62431) [id number] Johan Perry MD LISINOPRIL 20 MG TABS One 06-10-2011 Melany Khanna [facility] tablet by mouth twice daily PA-C (446 91) LISINOPRIL [id number] Melany Khanna, PA-C Comment: Take 1 tablet by mouth once daily. meclizine MECLIZINE HCL 12.5 MG 12-16-2010 - [facility] One tablet by 07-03-2015 Group (44 691) mouth three times daily MECLIZINE HCL [id number] Melissa Marks RN metFORMIN METFORMIN HCL 500 MG 09-27-2014 [facility] TABS One tablet by Group (44 691) mouth twice daily METFORMIN HCL [id number] Melany Khanna, PA-C metOLazone METOLAZONE 2.5 MG 08-20-2016 - [facility] TABS One tablet by 09-04-2016 RN Group (44 691) mouth three times a week. Take 30 minutes prior to morning lasix dose METOLAZONE [id number] Johan Perry MD metoprolol TOPROL XL 100 MG 12-15-2011 Melissa Marks RN [facility] [id number] One tablet Group ( 29778) by mouth daily METOPROLOL SUCCINATE [id number] Johan Perry MD TOPROL XL 100 MG 12-15-2011 - [facility] [id number] One tablet by 12-11-2014 Group (4 4691) mouth daily- STOP replaced by coreg METOPROLOL SUCCINATE [id number] Melany Khanan PA-C TOPROL XL 100 MG 12-15-2011 Melissa Marks RN [facility] [id number] One tablet by Group (4 4691) mouth daily METOPROLOL SUCCINATE 33076209311 Johan Perry MD TOPROL XL 100 MG 12-15-2011 - [facility] [id number] One tablet by 12-11-2014 Group (4 4691) mouth daily- STOP replaced by coreg METOPROLOL SUCCINATE 00852722130 Melissa Marks RN TOPROL XL 100 MG 12-15-2011 [facility] [id number] One tablet by Group (4 4691) mouth daily- STOP replaced by coreg METOPROLOL SUCCINATE 02499389118 Melany Khanna PA-C TOPROL XL 100 MG 12-15-2011 Melissa Marks RN [facility] [id number]-VKP One tablet by Group (4 4691) mouth daily METOPROLOL SUCCINATE 77643336380 Johan Perry MD TOPROL XL 100 MG 12-15-2011 [facility] [id number] One tablet by Group (4 4691) mouth daily- STOP replaced by coreg METOPROLOL SUCCINATE 63949980727 Melany Khanna PA-C TOPROL XL 100 MG 12-15-2011 - [facility] [id number] One tablet by 12-11-2014 Group (4 4691) mouth daily- STOP replaced by coreg METOPROLOL SUCCINATE 08092792062 Melissathi Marks RN TOPROL XL 100 MG 12-15-2011 - [facility] [id number] One tablet by 12-11-2014 Group (4 4691) mouth daily- STOP replaced by coreg METOPROLOL SUCCINATE 59524184136 Melissathi Marks RN TOPROL XL 100 MG 12-15-2011 Melissa A Selina RN [facility] [id number]-[id number] One tablet by Group (4 4691) mouth daily METOPROLOL SUCCINATE 01016901043 Johan Perry MD TOPROL XL 100 MG 12-15-2011 [facility] [id number]-HUK One tablet by Group (4 4691) mouth daily- STOP replaced by coreg METOPROLOL SUCCINATE 62342715886 Melany Khanna PA-C TOPROL XL 100 MG 12-15-2011 - [facility] [id number]-KDG One tablet by 12-11-2014 Group (4 4691) mouth daily- STOP replaced by coreg METOPROLOL SUCCINATE 91858361290 Melissa A Selina RN TOPROL XL 100 MG 12-15-2011 Melissa Mooney Selina RN [facility] WO34N-VEH One tablet by Group (4 4691) mouth daily METOPROLOL SUCCINATE 52149813894 Johan Perry MD TOPROL XL 100 MG 12-15-2011 [facility] [id number]-RKD One tablet by Group (4 4691) mouth daily- STOP replaced by coreg METOPROLOL SUCCINATE 11567733334 Melany Khanna PA-C TOPROL XL 100 MG 12-15-2011 - [facility] [id number] One tablet by 12-11-2014 Group (4 4691) mouth daily- STOP replaced by coreg METOPROLOL SUCCINATE 29812141279 Melissa A Selina RN TOPROL XL 100 MG 12-15-2011 [facility] [id number]-[id number] One tablet by Group (4 4691) mouth daily- STOP replaced by coreg METOPROLOL SUCCINATE 52596336528 Melany Khanna PA-C TOPROL XL 100 MG 12-15-2011 Melissa Mooney Selina ORTIZ [facility] [id number]-XDN One tablet by Group (4 4691) mouth daily METOPROLOL SUCCINATE 86854865138 Johan Perry MD TOPROL XL 100 MG 12-15-2011 Melissa Mooney Selina ORTIZ [facility] [id number]-[id number] One tablet by Group (4 4691) mouth daily METOPROLOL SUCCINATE 40845379910 Johan Perry MD TOPROL XL 100 MG 12-15-2011 [facility] [id number]-PBD One tablet by Group (4 4691) mouth daily- STOP replaced by coreg METOPROLOL SUCCINATE 59516773793 Melany Khanna PA-C TOPROL XL 100 MG 12-15-2011 - [facility] [id number]-HDA One tablet by 12-11-2014 Group (4 4691) mouth daily- STOP replaced by coreg METOPROLOL SUCCINATE 82806420354 Melissa Mooney Selina ORTIZ TOPROL XL 100 MG 12-15-2011 - [facility] [id number]-VSP One tablet by 12-11-2014 Group (4 4691) mouth daily- STOP replaced by coreg METOPROLOL SUCCINATE 38869041107 Melissa Mooney Selina RN TOPROL XL 100 MG 12-15-2011 Melissa Jesica Selina ORTIZ [facility] SK84U-EMN One tablet by Group (4 4691) mouth daily METOPROLOL SUCCINATE 37861559902 Johan Perry MD TOPROL XL 100 MG 12-15-2011 [facility] CM76U-ANI One tablet by Group (4 4691) mouth daily- STOP replaced by coreg METOPROLOL SUCCINATE 11311067573 eMlany Khanna PA-C TOPROL XL 100 MG 12-15-2011 [facility] [id number]-[id number] One tablet by Group (4 4691) mouth daily- STOP replaced by coreg METOPROLOL SUCCINATE 35277136317 Melany Khanna PA-C TOPROL XL 100 MG 12-15-2011 - [facility] [id number]-MFJ One tablet by 12-11-2014 Group (4 4691) mouth daily- STOP replaced by coreg METOPROLOL SUCCINATE 71273605899 Melissa Marks RN TOPROL XL 100 MG 12-15-2011 Melissa Marks RN [facility] QI86G-XTD One tablet by Group (4 4691) mouth daily METOPROLOL SUCCINATE 75792728778 Johan Perry MD TOPROL XL 100 MG 12-15-2011 [facility] [id number]-DBC One tablet by Group (4 4691) mouth daily- STOP replaced by coreg METOPROLOL SUCCINATE 66054951949 Melany Khanna PA-C TOPROL XL 100 MG 12-15-2011 - [facility] [id number]-HLR One tablet by 12-11-2014 Group (4 4691) mouth daily- STOP replaced by coreg METOPROLOL SUCCINATE 15888486582 Melissa Marks RN TOPROL XL 100 MG 12-15-2011 Melissa Marks RN [facility] [id number]-CYT One tablet by Group (4 4691) mouth daily METOPROLOL SUCCINATE [id number] Johan Perry MD TOPROL XL 50 MG 08-26-2011 Rahul Allen [facility] [id number]-[id number] (METOPROLOL [facility]omaritza [facility] (999 77) SUCCINATE) one tablet by mouth twice a day Rahul Anaya MD TOPROL XL 50 MG 08-26-2011 Rahul Allen [facility] WO11M-UCJ (METOPROLOL [facility] ([id number]) SUCCINATE) one tablet by mouth twice a day Rahul Anaya MD TOPROL XL 50 MG 08-26-2011 Rahul Allen [facility] OY40M-USY (METOPROLOL Nicomaritza [facility] (842 60) SUCCINATE) one tablet by mouth twice a day Rahul Anaya MD TOPROL XL 50 MG 08-26-2011 Rahul Allen [facility] [id number]-AWB (METOPROLOL Nicomaritza [facility] (258 72) SUCCINATE) one tablet by mouth twice a day Rahul Anaya MD TOPROL XL 50 MG 08-26-2011 Rahul Allen [facility] [id number]-ROT (METOPROLOL Nicolozaaretha [facility] (446 91) SUCCINATE) one tablet by mouth twice a day Rahul Anaya MD TOPROL XL 50 MG 08-26-2011 Rahul Allen [facility] [id number]-ZWG (METOPROLOL Nicolozaaretha [facility] (446 91) SUCCINATE) one tablet by mouth twice a day Rahul Anaya MD TOPROL XL 50 MG 08-26-2011 Rahul Allen [facility] [id number] (METOPROLOL Nicolozaaretha [facility] (446 91) SUCCINATE) one tablet by mouth twice a day Rahul Anaya MD TOPROL XL 50 MG 08-26-2011 Rahul Allen [facility] [id number]-[id number] (METOPROLOL Nicolozaaretha [facility] (446 91) SUCCINATE) one tablet by mouth twice a day Rahul Anaya MD TOPROL XL 50 MG 08-26-2011 Rahul Allen [facility] [id number]-VWB (METOPROLOL Nicolozaaretha [facility] (446 91) SUCCINATE) one tablet by mouth twice a day Rahul Anaya MD TOPROL XL 50 MG 08-26-2011 Rahul Allen [facility] [id number]-DQJ (METOPROLOL Nicolozaaretha [facility] (446 91) SUCCINATE) one tablet by mouth twice a day Rahul Anaya MD TOPROL XL 50 MG 08-26-2011 Rahul Allen [facility] [id number]-[id number] (METOPROLOL Nicolozaaretha [facility] (446 91) SUCCINATE) one tablet by mouth twice a day Rahul Anaya MD TOPROL XL 50 MG 08-26-2011 Rahul Allen [facility] [id number]-QLM (METOPROLOL [facility] (446 91) SUCCINATE) one tablet by mouth twice a day Rahul Anaya MD TOPROL XL 50 MG 08-26-2011 Rahul Allen [facility] [id number]-[id number] (METOPROLOL Nicolozaaretha [facility] (008 60) SUCCINATE) one tablet by mouth twice a day Rahul Anaya MD TOPROL XL 50 MG 08-26-2011 Rahul Allen [facility] [id number]-IWB (METOPROLOL Nicolopanchito [facility] (627 61) SUCCINATE) one tablet by mouth twice a day Rahul Anaya MD TOPROL XL 50 MG 08-26-2011 Rahul Allen [facility] [id number]-[id number] (METOPROLOL Nicolozaaretha [facility] ([phone]) SUCCINATE) one tablet by mouth twice a day Rahul Anaya MD TOPROL XL 50 MG 08-26-2011 Rahul Allen [facility] [id number]-UAM (METOPROLOL Nicolozaaretha [facility] (349 81) SUCCINATE) one tablet by mouth twice a day Rahul Anaya MD TOPROL XL 100 MG 06-10-2011 - [facility] [id number]-HDQ 07-03-2011 Group (4469 1) METOPROLOL SUCCINATE [id number] Rahul Anaya MD TOPROL XL 100 MG 06-10-2011 - [facility] [id number] 07-03-2011 Group (4469 1) METOPROLOL SUCCINATE [id number] Funmilayo Morales RN TOPROL XL 50 MG 07-16-2010 [facility] [id number] One tablet by Group (4 4691) mouth twice daily METOPROLOL SUCCINATE 24450654687 Tracee Beard TOPROL XL 50 MG 07-16-2010 [facility] [id number]-[id number] One tablet by Group (4 4691) mouth twice daily METOPROLOL SUCCINATE 34585769645 Tracee Cordova Beard TOPROL XL 50 MG 07-16-2010 [facility] [id number]-MUF One tablet by Group (4 4691) mouth twice daily METOPROLOL SUCCINATE 91289693848 Tracee Beard TOPROL XL 50 MG 07-16-2010 [facility] [id number]-DES One tablet by Group (4 4691) mouth twice daily METOPROLOL SUCCINATE 24923356342 Tracee Cordova Beard TOPROL XL 50 MG 07-16-2010 [facility] [id number]-[id number] One tablet by Group (4 4691) mouth twice daily METOPROLOL SUCCINATE 92080942479 Tracee Cordova Beard TOPROL XL 50 MG 07-16-2010 [facility] [id number]-AHH One tablet by Group (4 4691) mouth twice daily METOPROLOL SUCCINATE 41102992547 Tracee Cordova Beard TOPROL XL 50 MG 07-16-2010 [facility] AF93Z-SEK One tablet by Group (4 4691) mouth twice daily METOPROLOL SUCCINATE 22256923720 Tracee Cordova Beard TOPROL XL 50 MG 07-16-2010 [facility] [id number]-CNC One tablet by Group (4 4691) mouth twice daily METOPROLOL SUCCINATE 79799449941 Tracee Cordova Beard TOPROL XL 50 MG 07-16-2010 [facility] [id number] One tablet by Group (4 4691) mouth twice daily METOPROLOL SUCCINATE 86385345996 Tracee Cordova Beard TOPROL XL 50 MG 07-16-2010 [facility] [id number]-RAC One tablet by Group (4 4691) mouth twice daily METOPROLOL SUCCINATE 45541332762 Tracee Beard niacin NIACIN ER 1000 MG CR-TABS 09-22-2014 - 11-03-2014 [facility] One tablet by mouth daily (4 4691) NIACIN [id number] Johan Perry MD NIASPAN 1000 MG CR-TABS One 07-16-2010 - [facility] tablet by mouth twice daily 11-25-2012 Grou p (15236) NIACIN (ANTIHYPERLIPIDEMIC) [id number] Johan Perry MD NIASPAN 1000 MG CR-TABS One 07-16-2010 - [facility] tablet by mouth twice daily 11-25-2012 Grou p (61469) NIACIN (ANTIHYPERLIPIDEMIC) [id number] Johan Perry MD nitroglycerin NITRO-DUR 0.2 MG/HR 08-26-2011 - Funmilayo Morales RN [facility] PT24 on every morning 11-25-2012 Group (65892) off qhs NITROGLYCERIN [id number] Rahul Anaya MD NITRO-DUR 0.2 MG/HR PT24 08-25-2011 - 11-25-2012 [facility] on every morning off qhs (25267) NITROGLYCERIN [id number] Johan Perry MD NITRO-DUR 0.2 MG/HR PT24 08-26-2011 Funmilayo Morales RN [facility] on every morning off qhs (58135) NITROGLYCERIN [id number] Rahul Anaya MD NITRO-DUR 0.2 MG/HR PT24 08-25-2011 - 11-25-2012 [facility] on every morning off qhs (03019) NITROGLYCERIN [id number] Johan Perry MD NITRO-DUR 0.2 MG/HR PT24 08-26-2011 Funmilayo Morales RN [facility] on every morning off qhs (01254) NITROGLYCERIN [id number] Rahul Anaya MD NITRO-DUR 0.2 MG/HR PT24 08-25-2011 - 11-25-2012 [facility] on every morning off qhs (22151) NITROGLYCERIN [id number] Johan Perry MD NITRO-DUR 0.2 MG/HR PT24 08-26-2011 Funmilayo Morales RN [facility] on every morning off qhs (13329) NITROGLYCERIN [id number] Rahul Anaya MD NITRO-DUR 0.2 MG/HR PT24 08-25-2011 - 11-25-2012 [facility] on every morning off qhs (83985) NITROGLYCERIN [id number] Johan Perry MD NITRO-DUR 0.2 MG/HR PT24 08-26-2011 [facility] on every morning off qhs (69916) NITROGLYCERIN [id number] Rahul Anaya MD NITRO-DUR 0.2 MG/HR PT24 08-25-2011 - 11-25-2012 [facility] on every morning off qhs (93498) NITROGLYCERIN [id number] Johan Perry MD NITRO-DUR 0.2 MG/HR PT24 08-26-2011 [facility] on every morning off qhs (50722) NITROGLYCERIN [id number] Rahul Anaya MD NITRO-DUR 0.2 MG/HR PT24 08-25-2011 - 11-25-2012 [facility] on every morning off qhs (14487) NITROGLYCERIN [id number] Johan Perry MD NITRO-DUR 0.2 MG/HR PT24 08-26-2011 [facility] on every morning off qhs (82209) NITROGLYCERIN [id number] Rahul Anaya MD NITRO-DUR 0.2 MG/HR PT24 08-26-2011 [facility] on every morning off qhs (04685) NITROGLYCERIN [id number] Rahul Anaya MD NITRO-DUR 0.2 MG/HR PT24 08-25-2011 - 11-25-2012 [facility] on every morning off qhs (93876) NITROGLYCERIN [id number] Johan Perry MD NITRO-DUR 0.2 MG/HR PT24 08-26-2011 [facility] on every morning off qhs (69524) NITROGLYCERIN [id number] Rahul Anaya MD NITRO-DUR 0.2 MG/HR PT24 08-25-2011 - 11-25-2012 [facility] on every morning off qhs (43261) NITROGLYCERIN [id number] Johan Perry MD NITRO-DUR 0.2 MG/HR PT24 08-25-2011 - 11-25-2012 [facility] on every morning off qhs (93090) NITROGLYCERIN [id number] Johan Perry MD NITRO-DUR 0.2 MG/HR PT24 08-26-2011 Funmilayo Morales RN [facility] on every morning off qhs (27101) NITROGLYCERIN [id number] Rahul Anaya MD NITROGLYCERIN 0.2 MG/HR 12-16-2010 - 06-27-2011 [facility] PT24 Patch, on Q AM, off Q (4469 1) HS NITROGLYCERIN [id number] Rahul Anaya MD NITROSTAT 0.4 MG SUBL 1 07-16-2010 [facility] tablet under tongue every (96926 ) 5 min up to 3 X NITROGLYCERIN [id number] Kath Esquivel MD NITROGLYCERIN 0.3 MG 02-28-2005 [facility] Provider [facility] rt [facility] SUBLINGUAL TAB Dissolve (78570) 0.4 mg under the tongue. Usual dose for angina is 1 tablet every 5 minutes for maximum of 3 doses in 15 minutes. 0 02/28/2005 Active Comment: Dissolve 0.4 mg under the to ngue. Usual dose for angina is 1 tablet every 5 minutes for maximum of 3 doses in 15 minutes. Nortriptyline nortriptyline (PAMELOR) 11-16-2019 Morgan Valdez [facility] 25 mg capsule (79972) Indications: Type 2 diabetes mellitus with peripheral neuropathy (HCC) Take 1 capsule by mouth daily at bedtime. 30 capsule 5 11/16/2019 Active Comment: Take 1 capsule by mouth ajay y at bedtime. nph insulin, human HUMULIN N 100 UNIT/ML SUSP 08-26-2011 [facility] take as directed (35109) INSULIN ISOPHANE HUMAN [id number] Johan Perry MD HUMULIN N 100 UNIT/ML SUSP take as directed 08-26-2011 [facility] (79436) INSULIN ISOPHANE HUMAN [id number] Johan Perry MD HUMULIN N 100 UNIT/ML SUSP take as directed 08-26-2011 [facility] (14361) INSULIN ISOPHANE HUMAN [id number] Johan Perry MD HUMULIN N 100 UNIT/ML SUSP take as directed 08-26-2011 [facility] (41535) INSULIN ISOPHANE HUMAN [id number] Johan Perry MD HUMULIN N 100 UNIT/ML SUSP take as directed 08-26-2011 [facility] (50439) INSULIN ISOPHANE HUMAN [id number] Johan Perry MD HUMULIN N 100 UNIT/ML SUSP take as directed 08-26-2011 [facility] (95853) INSULIN ISOPHANE HUMAN [id number] Johan Perry MD HUMULIN N 100 UNIT/ML SUSP take as directed 08-26-2011 [facility] (19522) INSULIN ISOPHANE HUMAN [id number] Johan Perry MD HUMULIN N 100 UNIT/ML SUSP take as directed 08-26-2011 [facility] (95115) INSULIN ISOPHANE HUMAN [id number] Johan Perry MD HUMULIN N 100 UNIT/ML SUSP take as directed 08-26-2011 [facility] (58016) INSULIN ISOPHANE HUMAN [id number] Johan Perry MD HUMULIN N 100 UNIT/ML SUSP take as directed 08-26-2011 [facility] (04499) INSULIN ISOPHANE HUMAN [id number] Johan Perry MD omeprazole PRILOSEC 40 MG CPDR One tablet by 08-26-2011 [facility] (11100) mouth twice daily.11 OMEPRAZOLE [id number] Rahul Anaya MD OMEPRAZOLE 20 MG CPDR One tablet by mouth 08-26-2011 [facility] (45351) twice daily OMEPRAZOLE [id number] Vicki Kirkpatrick RN OMEPRAZOLE 20 MG CPDR One tablet by mouth 08-26-2011 [facility] (12053) daily OMEPRAZOLE [id number] Johan Perry MD PRILOSEC 40 MG CPDR One tablet by mouth 08-26-2011 [facility] (75215) twice daily.11 OMEPRAZOLE [id number] Rahul Anaya MD PRILOSEC 40 MG CPDR One tablet by mouth 08-26-2011 [facility] (12925) twice daily.11 OMEPRAZOLE [id number] Rahul Anaya MD PRILOSEC 40 MG CPDR .12 06-10-2011 [facility] (23876) OMEPRAZOLE [id number] Rahul Anaya MD PRILOSEC 40 MG CPDR .12 06-10-2011 [facility] (81386) OMEPRAZOLE [id number] Rahul Anaya MD PRILOSEC 40 MG CPDR .12 06-10-2011 [facility] (31357) OMEPRAZOLE [id number] Rahul Anaya MD Ondansetron ZOFRAN 8 MG TABS 1 12-30-2016 - [facility] tablet by mouth every 01-01-2017 Group (98305) 8 hours as needed ONDANSETRON HCL [id number] Melany Khanna PA-C pantoprazole PANTOPRAZOLE SODIUM 08-26-2011 Melany Marks [facility] 40 MG TBEC One tablet [facility] (64726) by mouth daily PANTOPRAZOLE SODIUM [id number] Melany M Khanna, PA-C Comment: Take 40 mg by mouth once rustam ly. potassium chloride KLOR-CON M10 10 MEQ 10-09-2011 - [facility] CR-TABS One tablet by 09-04-2016 (88575 ) mouth daily POTASSIUM CHLORIDE GISELE CR [id number] MD LIANE RogersCON M10 10 MEQ 10-09-2011 Melissa [facility] CR-TABS One tablet by (25850) mouth daily POTASSIUM CHLORIDE GISELE CR [id number] MD LIANE RogersCON M10 10 MEQ 10-09-2011 Melany Ludwig [facility] CR-TABS One tablet by RN (42798) mouth daily POTASSIUM CHLORIDE GISELE CR [id number] MD LIANE RogersCON M10 10 MEQ 10-09-2011 Melissa Ludwig [facility] CR-TABS One tablet by (97898) mouth daily POTASSIUM CHLORIDE GISELE CR [id number] MD LIANE RogersCON M10 10 MEQ 10-09-2011 - [facility] CR-TABS One tablet by 09-04-2016 (66631) mouth daily POTASSIUM CHLORIDE GISELE CR [id number] MD LIANE RogersCON M10 10 MEQ 10-09-2011 Melany [facility] CR-TABS One tablet by RN (07815) mouth daily POTASSIUM CHLORIDE GISELE CR [id number] MD LIANE RogersCON M10 10 MEQ 10-09-2011 - [facility] CR-TABS One tablet by 09-04-2016 (18431) mouth daily POTASSIUM CHLORIDE GISELE CR [id number] MD LIANE RogersCON M10 10 MEQ 10-09-2011 Melany [facility] CR-TABS One tablet by DRAGAN (35306) mouth daily POTASSIUM CHLORIDE GISELE CR [id number] [place] MD LIANE ZuletaCON M10 10 MEQ 10-09-2011 Melissa [facility] CR-TABS One tablet by (05815) mouth daily POTASSIUM CHLORIDE GISELE CR [id number] Johan MD LIANE ZuletaCON M10 10 MEQ 10-09-2011 [facility] CR-TABS One tablet by (93065) mouth daily POTASSIUM CHLORIDE GISELE CR [id number] JohanMD LIANE SuhCON M10 10 MEQ 10-09-2011 Mel[facility] CR-TABS One tablet by RN (18270) mouth daily POTASSIUM CHLORIDE GISELE CR [id number] MD LIANE RogersCON M10 10 MEQ 10-09-2011 - [facility] CR-TABS One tablet by 09-04-2016 (15915) mouth daily POTASSIUM CHLORIDE GISELE CR [id number] [place] MD LIANE ZuletaCON M10 10 MEQ 10-09-2011 Melany Cosme [facility] CR-TABS One tablet by RN (14188) mouth daily POTASSIUM CHLORIDE GISELE CR [id number] MD LIANE RogersCON M10 10 MEQ 10-09-2011 Melissa [facility] CR-TABS One tablet by (83191) mouth daily POTASSIUM CHLORIDE GISELE CR [id number] MD LIANE RogersCON M10 10 MEQ 10-09-2011 Melissa [facility] CR-TABS One tablet by (42571) mouth daily POTASSIUM CHLORIDE GISELE CR [id number] MD LIANE RogersCON M10 10 MEQ 10-09-2011 Melany Ludwig [facility] CR-TABS One tablet by DRAGAN (41567) mouth daily POTASSIUM CHLORIDE GISELE CR [id number] MD LIANE RogersCON M10 10 MEQ 10-09-2011 Melany Cosme [facility] CR-TABS One tablet by RN (62195) mouth daily POTASSIUM CHLORIDE GISELE CR [id number] MD LIANE RogersCON M10 10 MEQ 10-09-2011 Melissa Ludwig [facility] CR-TABS One tablet by (86519) mouth daily POTASSIUM CHLORIDE GISELE CR [id number] MD LIAEN RogersCON M10 10 MEQ 10-09-2011 Melissa [facility] CR-TABS One tablet by (80332) mouth daily POTASSIUM CHLORIDE GISELE CR [id number] MD LIANE RogersCON M10 10 MEQ 10-09-2011 Melany Cosme [facility] CR-TABS One tablet by RN (64185) mouth daily POTASSIUM CHLORIDE GISELE CR [id number] MD LIANE RogersCON M10 10 MEQ 10-09-2011 Melissa Ludwig [facility] CR-TABS One tablet by (09134) mouth daily POTASSIUM CHLORIDE GISELE CR [id number] MD LIANE RogersCON M10 10 MEQ 10-09-2011 Melany Cosme [facility] CR-TABS One tablet by RN (68970) mouth daily POTASSIUM CHLORIDE GISELE CR [id number] MD LIANE RogersCON M10 10 MEQ 11-25-2010 - Mel[facility] Ludwig [facility] CR-TABS One tablet by 09-04-2016 RN (66172) mouth daily POTASSIUM CHLORIDE GISELE CR [id number] Johan Perry MD ramipril ALTACE 10 MG CAPS One 07-16-2010 - 06-10-2011 [facility] tablet by mouth twice daily (02862) RAMIPRIL [id number] Rahul Anaya MD ALTACE 10 MG CAPS One tablet by 07-16-2010 - 06-09-2011 [facility] (12960) mouth twice daily RAMIPRIL [id number] Rahul Anaya MD ranolazine ranolazine SR (RANEXA) 02-15-[address] [facility] 1,000 mg Tb12 Take 1 (69057) tablet by mouth twice daily. 0 05/04/2016 Active RANEXA 500 MG [id number] 02-15-2016 Melissa Marks RN [facility] One tablet by mouth (96177) twice daily RANOLAZINE [id number] Beverly Henry [employer] RANEXA 500 MG [id number] 02-15-2016 Melissa Marks RN [facility] One tablet by mouth (42927) twice daily RANOLAZINE [id number] Beverly Henry [employer] RANEXA 1000 MG [id number] 02-15-[address] [facility] One tablet by mouth RN (27595) twice daily RANOLAZINE [id number] Melany Khanna PA-C RANEXA 500 MG [id number] 02-15-2016 Melissa Marks RN [facility] One tablet by mouth (26338) twice daily RANOLAZINE [id number] Beverly Henry NP RANEXA 1000 MG [id number] 02-15-[address] [facility] One tablet by mouth RN (73129) twice daily RANOLAZINE [id number] Melany Khanna PA-C RANEXA 500 MG [id number] 02-15-2016 Melissa Marks RN [facility] One tablet by mouth (26433) twice daily RANOLAZINE [id number] Beverly Henry FENCE BUILDER RANEXA 1000 MG [id number] 02-15-[address] [facility] One tablet by mouth RN (96936) twice daily RANOLAZINE [id number] Melany Khanna PA-C RANEXA 1000 MG [id number] 02-15-[address] [facility] One tablet by mouth RN (98351) twice daily RANOLAZINE [id number] Melany Khanna PA-C RANEXA 500 MG [id number] 02-15-2016 Melissa Marks RN [facility] One tablet by mouth (78097) twice daily RANOLAZINE [id number] Beverly Henry FENCE BUILDER RANEXA 500 MG [id number] 02-15-2016 [facility] One tablet by mouth (71015) twice daily RANOLAZINE [id number] Beverly Henry FENCE BUILDER RANEXA 1000 MG [id number] 02-15-[address] [facility] One tablet by mouth RN (76459) twice daily RANOLAZINE [id number] Melany Khanna PA-C RANEXA 500 MG [id number] 02-15-2016 [facility] One tablet by mouth (80084) twice daily RANOLAZINE [id number] Beverly Henry FENCE BU[employer]DER RANEXA 1000 MG [id number]-[id number] 02-15-[address] [facility] One tablet by mouth RN (16749) twice daily RANOLAZINE [id number] Melany Khanna PA-C RANEXA 1000 MG [id number] 02-15-[address] [facility] One tablet by mouth RN (93227) twice daily RANOLAZINE [id number] Melany Khanna PA-C RANEXA 500 MG [id number] 02-15-2016 [facility] One tablet by mouth (88723) twice daily RANOLAZINE [id number] Beverly Henry FENCE BU[employer]DER RANEXA 1000 MG [id number] 02-15-[address] [facility] One tablet by mouth RN (34718) twice daily RANOLAZINE [id number] Melany Khanna PA-C RANEXA 500 MG [id number] 02-15-2016 Melissa Marks RN [facility] One tablet by mouth (21514) twice daily RANOLAZINE [id number] Beverly Henry FENCE BUILDER RANEXA 1000 MG [id number]-RJF 02-15-[address] [facility] One tablet by mouth RN (79190) twice daily RANOLAZINE [id number] Melany Khanna PA-C RANEXA 500 MG [id number] 02-15-2016 Melissa Marks RN [facility] One tablet by mouth (92225) twice daily RANOLAZINE [id number] Beverly Henry FENCE BUILDER RANEXA 500 MG [id number] 02-07-2015 - [facility] One tablet by mouth 07-03-2015 (39704) twice daily RANOLAZINE [id number] Johan Perry MD RANEXA 500 MG [id number] 02-07-2015 - [facility] One tablet by mouth 07-03-2015 (44934) twice daily RANOLAZINE [id number] Johan Perry MD RANEXA 500 MG [id number] 02-07-2015 Jessica Odom RN [facility] One tablet by mouth (66303) twice daily RANOLAZINE [id number] Johan Perry MD RANEXA 500 MG [id number]-[id number] 02-07-2015 Jessica Odom RN [facility] One tablet by mouth (07587) twice daily RANOLAZINE [id number] Johan Perry MD RANEXA 500 MG [id number] 02-07-2015 - [facility] One tablet by mouth 07-03-2015 (87534) twice daily RANOLAZINE [id number] Johan Perry MD RANEXA 500 MG [id number] 02-07-2015 Jessica Odom RN [facility] One tablet by mouth (87121) twice daily RANOLAZINE [id number] Johan Perry MD RANEXA 500 MG [id number] 02-07-2015 - [facility] One tablet by mouth 07-03-2015 (61484) twice daily RANOLAZINE [id number] Johan Perry MD RANEXA 500 MG [id number]-[id number] 02-07-2015 - [facility] One tablet by mouth 07-03-2015 (24067) twice daily RANOLAZINE [id number] Johan Perry MD RANEXA 500 MG [id number]-[id number] 02-07-2015 Jessica Odom RN [facility] One tablet by mouth (99436) twice daily RANOLAZINE [id number] Johan Perry MD RANEXA 500 MG [id number] 02-07-2015 Jessica Odom RN [facility] One tablet by mouth (02515) twice daily RANOLAZINE [id number] Johan Perry MD RANEXA 500 MG [id number]-[id number] 02-07-2015 - [facility] One tablet by mouth 07-03-2015 (01914) twice daily RANOLAZINE [id number] Johan Perry MD RANEXA 500 MG [id number]-[id number] 02-07-2015 - [facility] One tablet by mouth 07-03-2015 (47238) twice daily RANOLAZINE [id number] Johan Perry MD RANEXA 500 MG [id number]-[id number] 02-07-2015 Jessica Odom RN [facility] One tablet by mouth (12440) twice daily RANOLAZINE [id number] Johan Perry MD RANEXA 500 MG [id number] 02-07-2015 Jessica Odom RN [facility] One tablet by mouth (90684) twice daily RANOLAZINE [id number] Johan Perry MD RANEXA 500 MG [id number] 02-07-2015 - [facility] One tablet by mouth 07-03-2015 (32990) twice daily RANOLAZINE [id number] Johan Perry MD RANEXA 500 MG [id number] 02-07-2015 - [facility] One tablet by mouth 07-03-2015 (87621) twice daily RANOLAZINE [id number] Johan Perry MD RANEXA 500 MG [id number] 02-07-2015 Jessica Odom RN [facility] One tablet by mouth (63963) twice daily RANOLAZINE [id number] Johan Perry MD RANEXA 500 MG [id number] 02-07-2015 - [facility] One tablet by mouth 07-03-2015 (35095) twice daily RANOLAZINE [id number] Johan Perry MD RANEXA 500 MG [id number] 02-07-2015 Jessica Odom RN [facility] One tablet by mouth (46968) twice daily RANOLAZINE [id number] Johan Perry MD Comment: Take 1 tablet by mouth twice daily. Regular Insulin, insulin regular human 11-08-2019 - Deniz Roy [facility] (NOVOLIN R REGULAR 12-12-2019 (04489) U-100 INSULN) 100 unit/mL injection Indications: Type 2 diabetes mellitus with st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, with long-term current use of insulin ([facility]) Inject 15 units Subcutaneously three times daily before meals + sliding scale as directed ( 1 unit for every 50 mg/dL above 150 mg/dL) 0 11/08/2019 12/12/2019 Discontinued (Changing Therapy/Dosage Form) Comment: Inject 15 units Subcutaneous ly three times daily before meals + sliding scale as directed ( 1 unit f or every 50 mg/dL above 150 mg/dL) rOPINIRole rOPINIRole (REQUIP) 0.5 10-20-2019 Morgan Mooney [facility] (52307) mg tablet Take 1 tablet by mouth daily at bedtime. 90 tablet 3 10/20/2019 Active Comment: Take 1 tablet by mouth daily at bedtime. rosuvastatin CRESTOR 40 MG TAB Take 06-04-2005 [facility] one(1) tablet daily. 0 (4469 1) 06/04/2005 Active Comment: Take one(1) tablet daily. sotalol SOTALOL HCL (AF) 80 MG TABS 07-04-2011 - 03-04-2012 [facility] One tablet by mouth twice (4 4691) daily SOTALOL HCL AF [id number] Rahul Anaya MD SOTALOL HCL (AF) 80 MG TABS One 07-04-2011 [facility] (73373) tablet by mouth twice daily SOTALOL HCL AF [id number] Funmilayo Morales RN SOTALOL HCL (AF) 80 MG TABS One 07-04-2011 - 03-04-2012 [facility] (16790) tablet by mouth twice daily SOTALOL HCL AF [id number] Rahul Anaya MD SOTALOL HCL (AF) 80 MG TABS One 07-04-2011 [facility] (04183) tablet by mouth twice daily SOTALOL HCL AF [id number] Funmilayo Morales RN SOTALOL HCL (AF) 80 MG TABS One 07-04-2011 [facility] (60383) tablet by mouth twice daily SOTALOL HCL AF [id number] Funmilayo Morales RN SOTALOL HCL (AF) 80 MG TABS One 07-04-2011 - 03-04-2012 [facility] (23782) tablet by mouth twice daily SOTALOL HCL AF [id number] Rahul Anaya MD SOTALOL HCL (AF) 80 MG TABS One 07-04-2011 - 03-04-2012 [facility] (54411) tablet by mouth twice daily SOTALOL HCL AF [id number] Funmilayo Morales RN SOTALOL HCL (AF) 80 MG TABS One 07-04-2011 - 03-04-2012 [facility] (30625) tablet by mouth twice daily SOTALOL HCL AF [id number] Rahul Anaya MD SOTALOL HCL (AF) 120 MG TABS One 07-03-2011 [facility] (26347) tablet by mouth twice daily SOTALOL HCL AF [id number] Funmilayo Morales RN SOTALOL HCL (AF) 120 MG TABS One 07-03-2011 [facility] (98258) tablet by mouth twice daily SOTALOL HCL AF [id number] Funmilayo Morales RN SOTALOL HCL (AF) 120 MG TABS One 07-03-2011 [facility] (96046) tablet by mouth twice daily SOTALOL HCL AF [id number] Funmilayo Morales RN SOTALOL HCL (AF) 120 MG TABS One 07-03-2011 [facility] (95223) tablet by mouth twice daily SOTALOL HCL AF [id number] Funmilayo Morales RN SOTALOL HCL (AF) 120 MG TABS One 07-03-2011 [facility] (98345) tablet by mouth twice daily SOTALOL HCL AF [id number] Funmilayo Morales RN Spironolactone spironolactone 11-26-2017 Morgan Valdez [facility] (ALDACTONE) 25 mg tablet (44 195) Take 1 tablet by mouth once daily. 0 11/26/2017 Active Comment: Take 1 tablet by mouth once daily. traZODone traZODone (DESYREL) 50 09-16-2019 - Deniz Mathur Ady Quintero [facility] mg tablet Indications: 03-14-2020 (4419 5) Sleep difficulties Take 2 tablets by mouth daily at bedtime. 180 tablet 1 09/16/2019 03/14/2020 Active Comment: Take 2 tablets by mouth ajay y at bedtime. warfarin warfarin (COUMADIN) 3 mg 09-01-2019 Morgan Valdez [facility] tablet Indications: Chronic (95668) atrial fibrillation (HCC) 3 mg every Mon, Wed, Fri; 6 mg all other days 150 tablet 3 09/01/2019 Active COUMADIN 1 MG TABS Take as directed 3 08-26-2011 [facility] (43533) tablets by mouth one 5mg tablet to =8mg daily WARFARIN SODIUM [id number] Rahul Anaya MD COUMADIN 1 MG TABS managed by Dr. Hunt 08-26-2011 [facility] (49909) Cebul WARFARIN SODIUM [id number] Johan Perry MD COUMADIN 5 MG TABS managed by Dr. Hunt 08-26-2011 [facility] (84788) Cebul WARFARIN SODIUM [id number] Johan Perry MD COUMADIN 5 MG TABS Take as directed 5mg 08-26-2011 [facility] (72843) daily with three 1mg tablets to =8mg daily WARFARIN SODIUM [id number] Rahul Anaya MD Comment: 3 mg every Mon, Wed, Fri; 6 mg all other days Problems Active Problems Category Problem Name Status Date Location Acute myocardial Subsequent non-ST Active 12-11-2014 - [facility] infarction segment elevation - 06-26-2015 (45346) myocardial infarction - Cardiac dysrhythmias Atrial fibrillation Active 07-16-2010 - [facility] (64106) Conduction disorders Automatic implantable Active [facility] cardiac defibrillator in (44 195) situ Congestive heart Acute on chronic Active 12-17-2018 - [facility] failure; systolic heart failure (4419 5) nonhypertensive 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 - [facility] atherosclerosis and infarction - 06-26-2015 (19558) other heart disease - Diabetes mellitus Type 2 diabetes mellitus Active 06-15-2017 - [facility] without complication (16801) Diseases of white blood Leukocytosis Active 01-29-2013 - [facility] cells (48582) Disorders of lipid Hyperlipidemia Active 07-16-2010 - [facility] metabolism (26709) Esophageal disorders Gastroesophageal reflux Active 8 - [facility] disease (20331) Essential hypertension Essential hypertension Active 07-17-19 11 - [facility] (20039) Hyperplasia of prostate Benign prostatic Active 09-16-2007 - [facility] hypertrophy with outflow (44 195) obstruction Inflammatory conditions Balanitis Active 11-16-2016 - [facility] of male genital organs (4419 5) Other and ill-defined Cardiomegaly Active [facility] heart disease (05163) Other hereditary and Restless legs Active 07-28-2018 - [facility] degenerative nervous (71136) system conditions Other nutritional; Body mass index (BMI) Active 03-08-2013 - [facility] endocrine; and 38.0-38.9, adult (94220) metabolic disorders Other nutritional; Body mass index (BMI) Active 03-08-2013 - [facility] endocrine; and 37.0-37.9, adult (09649) metabolic disorders Other nutritional; Body mass index (BMI) Active 03-08-2013 - [facility] endocrine; and 34.0-34.9, adult (17441) metabolic disorders Other nutritional; Body mass index (BMI) Active 03-08-2013 - [facility] endocrine; and 35.0-35.9, adult [facility] metabolic disorders (65910) Other nutritional; Body mass index (BMI) Active 03-08-2013 - [facility] endocrine; and 36.0-36.9, adult - 03-29-2015 (22186) metabolic disorders - Other nutritional; Obesity Active 09-16-2011 - [facility] endocrine; and (90916) metabolic disorders Residual codes; Obstructive sleep apnea Active 07-26-2018 - [facility] unclassified syndrome (20832) Screening or history of Tobacco dependence Active 07-16-2010 - [facility] mental health and syndrome - 12-30-2016 (28419) substance abuse - Spondylosis; Arthritis of facet joint Active 07-14-2017 - [facility] intervertebral disc of lumbar spine (4419 5) disorders; other back problems Unclassified Type 2 diabetes mellitus Active 03-29-2015 - [facility] with diabetic peripheral (44 691) angiopathy without gangrene Unclassified Anticoagulant effect Active 07-03-2011 - [facility] (73476) Unclassified Placement of stent in Active 07-16-2010 - [facility] coronary artery (23991) Unclassified Long-term drug therapy Active 07-16-2010 - [facility] (29654) Unclassified Implantation of Active 07-16-2010 - [facility] automatic cardiac (79479) defibrillator Past or Other Problems Category Problem Name Status Date Location Fluid and electrolyte Hypokalemia Completed 08-18-2011 [facility] - - Group (19776) 06-26-2015 - Lymphadenitis [facility]opathy [facility]78221[facility] Mycoses Onychomycosis due to Completed 06-05-2011 [facility] dermatophyte - (93213) Nonspecific chest pain Chest pain Completed 01-30-2016 [facility] (69845) Other aftercare Other qa test analyst Completed 07-16-2010 [facility] therapy - Group (98979) Other and unspecified Benign neoplasm of Completed 02-21-2009 [facility] benign neoplasm colon - (80102) Other circulatory Carotid bruit Completed 03-14-2016 [facility] disease - Group (07336) Other circulatory Low blood pressure Completed 08-18-[address] [facility] [address] [facility] - - Group ([id number]) 06-26-2015 - Other diseases of veins Stasis dermatitis Completed 04-05-2013 [facility] and lymphatics - (08989) Other gastrointestinal Dysphagia Completed 03-01-2015 [facility] disorders - (19609) Other hematologic High troponin I level Completed 01-29-2013 [facility] conditions - (01792) Other lower respiratory Dyspnea, unspecified Completed 5 [place] disease - - Medical Service , 06-26-2015 [facility] (71586) - Other lower respiratory Dyspnea on exertion Completed 12-06-2014 [facility] - - Group ([id number]) 06-26-2015 - Other skin disorders Localized swelling, Completed 07-28-2018 [facility] mass and lump, neck - (50083) Other skin disorders Foot callus Completed 10-04-2014 [facility] - (24362) Phlebitis; H/O: Deep vein Completed 01-26-2018 [facility] thrombophlebitis and thrombosis - (80918) thromboembolism Residual codes; Past history of Completed 11-16-2016 [facility] unclassified procedure - (56941) Syncope Vasovagal syncope Completed 12-16-2010 [facility] ([id number]) 06-26-2015 - Unclassified Family history of Completed 01-26-2018 [facility] stroke - Group ([id number]) Unclassified Preoperative Completed 11-03-2014 [facility] cardiovascular - - Group ([id number]) examination 12-25-2014 - Unclassified Type 1 diabetes Completed 07-16-2010 [facility] mellitus with diabetic - - Group (42763) peripheral angiopathy 12-30-2016 without gangrene - Results Result Name Value Range Unit Interpretation Flag Date Location obsolete on 2019-12 OBSOLETE Refill (FAMPWS) Normal 01-06-2020 [facility] LOVELY DEVI ([id number]) 1945 [facility] Date Time Provider Department ([id number]) 01/06/20 MORGAN VALDEZ III FAMPWS During your visit today, we recorded the following informati on about you: Linda Ngo Ma 01/06/2020 11:56 AM Signed Patient has been identified by name and date of : Yes Pending Prescriptions Disp Refills GABAPENTIN 300 MG CAPSULE 270 capsule 0 Sig: Take 3 capsules by mouth three times daily for 30 days. ZBIGNIEW: No RX INSTRUCTIONS: Patient aware RX will be sent to pharmacy. No need to notify patient. Linda Ngo Ma Last ov: 09/2019 Last refill: 11/2019 No appointment scheduled Allergies As of Date: 01/06/2020 Noted Allergy Reaction MORPHINE 02/28/2005 ROCEPHIN (CEFTRIAXONE SODIUM) 06/20/2014 14 - Other: See Com ments Comments: Hot flashes; redness to skin Date Reviewed: 10/27/2019 Reviewed by: Linwood ([facility]) JAZZY Carpenter - Fully Assessed Reason for Visit: Refill Request [94] Visit Diagnosis: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, with long-term current use of insulin ([facility]) [E11.40, Z79.4] Order(s):gabapentin (NEURONTIN) 300 mg capsuleTake 3 c apsules by mouth three times daily for 30 days.Disp: 270 capsuleRfl: 0 Prescriptions as of 01/06/2020 Sig: GABAPENTIN 300 MG CAPSULE Take 3 capsules by mouth thre* INSULIN LISPRO (U-100) 100 UN* Inject 17 Units subcutaneousl * BASAGLAR KWIKPEN U-100 INSULI* Inject 34 Units subcutaneousl * NORTRIPTYLINE 25 MG CAPSULE Take 1 capsule by mouth daily* ROPINIROLE 0.5 MG TABLET Take 1 tablet by mouth daily * LATANOPROST 0.005 % EYE DROPS Use 1 Drop in both eyes three* COLESTIPOL 1 GRAM TABLET Take 1 g by mouth twice daily. CARVEDILOL 3.125 MG TABLET Take 2 tablets by mouth twice* CHOLECALCIFEROL (VITAMIN D3) * Take 1 capsule by mouth once * WARFARIN 3 MG TABLET 3 mg every Mon, Wed, Fri; 6 m* CLOPIDOGREL 75 MG TABLET Take 1 tablet by mouth once d* INSULIN SYRINGE U-100 WITH NE* 1 Each five times daily. LISINOPRIL 20 MG TABLET Take 1 tablet by mouth once d* FUROSEMIDE 40 MG TABLET Take 1 tablet by mouth twice * BIPAP Initiate BiPAP @ 24/18 cm of * FLASH GLUCOSE SENSOR KIT 1 Each four times daily. BACK BRACE 1 Device once daily as needed* AMIODARONE 200 MG TABLET Take 1 tablet by mouth once d* SPIRONOLACTONE 25 MG TABLET Take 1 tablet by mouth once d* ISOSORBIDE MONONITRATE ER 30 * Take 60 mg by mouth once ajay * BLOOD SUGAR DIAGNOSTIC STRIPS Use as instructed to check bl* RANOLAZINE ER 1,000 MG TABLET* Take 1 tablet by mouth twice * FENOFIBRATE NANOCRYSTALLIZED * Take 1 tablet by mouth once d * PANTOPRAZOLE 40 MG TABLET,DEL* Take 40 mg by mouth once ajay * LANCETS Use with Onetouch Glucometer * ASPIRIN 81 MG TABLET Take 1 tablet by mouth once d* CRESTOR 40 MG TABLET Take one(1) tablet daily. NITROGLYCERIN 0.3 MG SUBLINGU* Dissolve 0.4 mg under the ton * Problem List As Of Date 01/06/2020 Noted Resolved CARDIOMEGALY [I51.7] Duodenitis without mention of hemorrhage [K29.8* 06/07/2014 Essential hypertension [I10] PAROX VENTRIC TACHYCARD [I47.2] Automatic implantable cardioverter-defibrillato* BPH with obstruction/lower urinary tract sympto*09/16/2007 Type 2 diabetes mellitus, uncontrolled (HCC) [E*02/16/2008 1 04/21/2014 ESOPHAGEAL REFLUX [K21.9] 03/06/2008 Benign Neoplasm of Colon [D12.6] 02/21/2009 Labyrinthitis [H83.09] 02/05/2010 06/07/2014 Dermatophytosis of nail [B35.1] 06/05/2011 Atrial fibrillation [I48.91] 07/03/2011 Anticoagulated on Coumadin [Z79.01] 07/03/2011 Chronic diarrhea [K52.9] 09/16/2011 06/07/2014 Class 2 severe obesity due to excess calories w*09/16/2011 Stasis dermatitis of both legs [I87.2] 04/05/2013 Foot callus [L84] 10/04/2014 Subsequent non-ST elevation (NSTEMI) myocardial*12/25/2014 Syncope [R55] 02/19/2015 Hyperlipidemia LDL goal <100 [E78.5] 02/19/2015 ASHD (arteriosclerotic heart disease) [I25.10] 02/19/2015 Neurocardiogenic syncope [R55] 03/01/2015 Dysphagia [R13.10] 03/01/2015 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 Balanitis [N48.1] 11/16/2016 Coronary angioplasty status [Z98.61] 11/16/2016 Elevated troponin I level [R77.8] 01/29/2013 More... Family history of cerebrovascular accident (CVA*01/26/2018 History of deep venous thrombosis [Z86.718] 01/26/2018 History of non-ST elevation myocardial infarcti*01/26/2018 Ischemic cardiomyopathy [I25.5] 11/20/2017 Leukocytosis [D72.829] 01/29/2013 More... JESSICA (obstructive sleep apnea) [G47.33] 07/26/2018 RLS (restless legs syndrome) [G25.81] 07/28/2018 Localized swelling, mass and lump, neck [R22.1] 07/28/2018 Acute on chronic systolic congestive heart fail*12/17/2018 Prescriptions ordered this encounter Disp Refills Start End GABAPENTIN 300 MG CAPSULE 270 * 0 01/06/2020 02/05/2020 Route: ORAL Sig: Take 3 capsules by mouth three times daily for 30 days. Medications Discontinued During This Encounter Prescriptions - gabapentin (NEURONTIN) 300 mg capsule (Discontinued) Take 3 capsules by mouth three times daily for 30 days. Encounter Status:Closed by MORGAN VALDEZ III[facility]) Normal 12-27-2019 [facility] LOVELY DEVI ([id number]) 1945 [facility] Date Time Provider Department ([id number]) 12/27/19 MORGAN VALDEZ IIIVIVEK During your visit today, we recorded the following informati on about you: Samina Feliciano RN 12/27/2019 9:29 AM Signed Pt called, verified by name and birthdate. Pt st car[facility] he is having leg surgery on 01-04-2020. Pt states he is going to be off coumadin from 01-01-2020 thru 01-08-2020. Pt will be starting Lovenox on 01-01-2020. Pt wants to know if he needs to check his INR befor e the surgery since he was scheduled to check it on 01-04-2020. Please advise Samina Valdez III MD 12/27/2019 5:26 PM Signed no need for INR check prior to him stopping the coumadin FEDERICO Alatorre MD, CMA, JAZZY 12/27/2019 5:53 PM Signed Patient notified, voiced understanding. Linwood Carpenter CMA Patient wants to know how long after he resumes his coumadin should he get his INR checked, he goes back on coumadin on 01/08, his next radha eduled INR is 01/10. Please advise. Morgan Valdez III MD 12/27/2019 6:05 PM Signed recheck INR 7 days after resuming the coumadin. (01/15) FEDERICO Alatorre MD, CMA, JAZZY 12/28/2019 9:08 AM Signed Detailed message left for patient. Linwood Carpenter CMA Allergies As of Date: 12/27/2019 Noted Allergy Reaction MORPHINE 02/28/2005 ROCEPHIN (CEFTRIAXONE SODIUM) 06/20/2014 14 - Other: See Com ments Comments: Hot flashes; redness to skin Date Reviewed: 10/27/2019 Reviewed by: Linwood Carpenter MA - Fully Assessed Reason for Visit: Patient Question [[id number]] Prescriptions as of 12/27/2019 Sig: INSULIN LISPRO (U-100) 100 UN* Inject 17 Units subcutaneousl * BASAGLAR KWIKPEN U-100 INSULI* Inject 34 Units subcutaneousl * GABAPENTIN 300 MG CAPSULE Take 3 capsules by mouth thre* NORTRIPTYLINE 25 MG CAPSULE Take 1 capsule by mouth daily* ROPINIROLE 0.5 MG TABLET Take 1 tablet by mouth daily * LATANOPROST 0.005 % EYE DROPS Use 1 Drop in both eyes three* COLESTIPOL 1 GRAM TABLET Take 1 g by mouth twice daily. CARVEDILOL 3.125 MG TABLET Take 2 tablets by mouth twice* CHOLECALCIFEROL (VITAMIN D3) * Take 1 capsule by mouth once * WARFARIN 3 MG TABLET 3 mg every Mon, Wed, Fri; 6 m* CLOPIDOGREL 75 MG TABLET Take 1 tablet by mouth once d* INSULIN SYRINGE U-100 WITH NE* 1 Each five times daily. LISINOPRIL 20 MG TABLET Take 1 tablet by mouth once d* FUROSEMIDE 40 MG TABLET Take 1 tablet by mouth twice * BIPAP Initiate BiPAP @ 24/18 cm of * FLASH GLUCOSE SENSOR KIT 1 Each four times daily. BACK BRACE 1 Device once daily as needed* AMIODARONE 200 MG TABLET Take 1 tablet by mouth once d* SPIRONOLACTONE 25 MG TABLET Take 1 tablet by mouth once d* ISOSORBIDE MONONITRATE ER 30 * Take 60 mg by mouth once ajay * BLOOD SUGAR DIAGNOSTIC STRIPS Use as instructed to check bl* RANOLAZINE ER 1,000 MG TABLET* Take 1 tablet by mouth twice * FENOFIBRATE NANOCRYSTALLIZED * Take 1 tablet by mouth once d * PANTOPRAZOLE 40 MG TABLET,DEL* Take 40 mg by mouth once ajay * LANCETS Use with [employer] Glucometer * ASPIRIN 81 MG TABLET Take 1 tablet by mouth once d* CRESTOR 40 MG TABLET Take one(1) tablet daily. 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*09/16/2007 Type 2 diabetes mellitus, uncontrolled (HCC) [E*02/16/2008 1 04/21/2014 ESOPHAGEAL REFLUX [K21.9] 03/06/2008 Benign Neoplasm of Colon [D12.6] 02/21/2009 Labyrinthitis [H83.09] 02/05/2010 06/07/2014 Dermatophytosis of nail [B35.1] 06/05/2011 Atrial fibrillation [I48.91] 07/03/2011 Anticoagulated on Coumadin [Z79.01] 07/03/2011 Chronic diarrhea [K52.9] 09/16/2011 06/07/2014 Class 2 severe obesity due to excess calories w*09/16/2011 Stasis dermatitis of both legs [I87.2] 04/05/2013 Foot callus [L84] 10/04/2014 Subsequent non-ST elevation (NSTEMI) myocardial*12/25/2014 Syncope [R55] 02/19/2015 Hyperlipidemia LDL goal <100 [E78.5] 02/19/2015 ASHD (arteriosclerotic heart disease) [I25.10] 02/19/2015 Neurocardiogenic syncope [R55] 03/01/2015 Dysphagia [R13.10] 03/01/2015 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 Balanitis [N48.1] 11/16/2016 Coronary angioplasty status [Z98.61] 11/16/2016 Elevated troponin I level [R79.89] 01/29/2013 More... Family history of cerebrovascular accident (CVA*01/26/2018 History of deep venous thrombosis [Z86.718] 01/26/2018 History of non-ST elevation myocardial infarcti*01/26/2018 Ischemic cardiomyopathy [I25.5] 11/20/2017 Leukocytosis [D72.829] 01/29/2013 More... JESSICA (obstructive sleep apnea) [G47.33] 07/26/2018 RLS (restless legs syndrome) [G25.81] 07/28/2018 Localized swelling, mass and lump, neck [R22.1] 07/28/2018 Acute on chronic systolic congestive heart fail*12/17/2018 Encounter Status:Closed by LINWOOD CARPENTER CMA on 12/28/19 cnpn on 2019-12-20 CNPN Telephone ([facility]) Normal 12-20-2019 [facility] LOVELY DEVI ([id number]) 1945 M [facility] Time Provider Department ([id number]) 12/20/19 ANDRE (PHARMACIST), LEE COTTER During your visit today, we recorded the following informati on about you: Lee Moss Pharmacist 12/20/2019 5:07 PM Signed Patient was due to test INR today. Will continue to monitor for results. Lee Moss, Pharmacist ANSHUL SEBASTIAN 12/21/2019 9:21 AM Signed [facility] Referring provider: No ref. provider found Lovely Devi is a 74 year old year old male patient being evaluated today for anticoagulation Telemanagement visit. Patient is currently on the following anticoagulant Warfarin Labs PT INR (no units) Date Value 11/26/2018 Test sent to [facility]. 10/16/2017 1.8 01/16/2017 Test sent to [facility]. INR (POCT) (no units) Date Value 02/21/2019 2.9 01/24/2019 2.9 01/17/2019 3.2 INR Home CoaguChek (no units) Date Value 12/21/2019 1.9 12/06/2019 1.6 11/23/2019 1.7 Hemoglobin (g/dL) Date Value 01/14/2019 12.0 Hematocrit (%) Date Value 01/14/2019 37.9 HCT (%) Date Value 12/09/2019 38.6 Platelet Count (k/uL) Date Value 01/14/2019 154 PLT (K/uL) Date Value 12/09/2019 168 Creatinine Date Value 12/09/2019 1.68 MG/DL 10/14/2019 1.30 mg/dL 04/21/2019 1.35 mg/dL 01/14/2019 1.24 mg/dL Bilirubin, Total (mg/dL) Date Value 10/14/2019 0.4 ALT (U/L) Date Value 10/14/2019 26 AST (U/L) Date Value 10/14/2019 23 CrCl cannot be calculated (Unknown ideal weight.). ALLERGIES Allergen Reactions - Morphine - Rocephin [Ceftriaxo* Other: See Comments Hot flashes; redness to skin Indication for Warfarin: Goal INR Range: @INRGOAL@ Assessment: ? INR result of 1.9 is subtherapeutic but trending on the lo w end. ? Pt denies missed or decrease doses, changes in Warfarin ta blet color or shape, eating more green vegetables, or consumption of liver or green tea, Ensure, Boost, [place] Instant Breakfast, Mulit-Vitamins, and V-8. Plan: ? Advised patient to continue with a hig her weekly warfarin dose at this time. ? Next home INR check scheduled on 01/04/2020 ? Patient verbalizes understanding of the plan. JOLEEN CERRATO, PHARMACIST Clinical Pharmacist, Pharmacy Anticoagulation Clinic Pharmacy Anticoagulation Clinic Pager: [phone] Description Patient has 3 mg tablets of warfarin. Patient takes in the m orning. . Allergies As of Date: 12/20/2019 Noted Allergy Reaction MORPHINE 02/28/2005 ROCEPHIN (CEFTRIAXONE SODIUM) 06/20/2014 14 - Other: See Com ments Comments: Hot flashes; redness to skin Date Reviewed: 10/27/2019 Reviewed by: [place] ([facility]) JAZZY Carpenter - Fully Assessed Reason for Visit: Anticoagulation Telephone Fu [148] Cmt: Home INR result Primary Visit Diagnosis:Anticoagulated on Coumadin [Z79.01] Other Visit Diagnosis:Paroxysmal atrial fibrillation (HCC) [ I48.0] Prescriptions as of 12/20/2019 Sig: INSULIN LISPRO (U-100) 100 UN* Inject 17 Units subcutaneousl * BASAGLAR KWIKPEN U-100 INSULI* Inject 34 Units subcutaneousl * GABAPENTIN 300 MG CAPSULE Take 3 capsules by mouth thre* NORTRIPTYLINE 25 MG CAPSULE Take 1 capsule by mouth daily* ROPINIROLE 0.5 MG TABLET Take 1 tablet by mouth daily * LATANOPROST 0.005 % EYE DROPS Use 1 Drop in both eyes three* COLESTIPOL 1 GRAM TABLET Take 1 g by mouth twice daily. CARVEDILOL 3.125 MG TABLET Take 2 tablets by mouth twice* CHOLECALCIFEROL (VITAMIN D3) * Take 1 capsule by mouth once * WARFARIN 3 MG TABLET 3 mg every Mon, Wed, Fri; 6 m* CLOPIDOGREL 75 MG TABLET Take 1 tablet by mouth once d* INSULIN SYRINGE U-100 WITH NE* 1 Each five times daily. LISINOPRIL 20 MG TABLET Take 1 tablet by mouth once d* FUROSEMIDE 40 MG TABLET Take 1 tablet by mouth twice * BIPAP Initiate BiPAP @ 24/18 cm of * FLASH GLUCOSE SENSOR KIT 1 Each four times daily. BACK BRACE 1 Device once daily as needed* AMIODARONE 200 MG TABLET Take 1 tablet by mouth once d* SPIRONOLACTONE 25 MG TABLET Take 1 tablet by mouth once d* ISOSORBIDE MONONITRATE ER 30 * Take 60 mg by mouth once ajay * BLOOD SUGAR DIAGNOSTIC STRIPS Use as instructed to check bl* RANOLAZINE ER 1,000 MG TABLET* Take 1 tablet by mouth twice * FENOFIBRATE NANOCRYSTALLIZED * Take 1 tablet by mouth once d * PANTOPRAZOLE 40 MG TABLET,DEL* Take 40 mg by mouth once ajay * LANCETS Use with [employer] Glucometer * ASPIRIN 81 MG TABLET Take 1 tablet by mouth once d* CRESTOR 40 MG TABLET Take one(1) tablet daily. 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*09/16/2007 Type 2 diabetes mellitus, uncontrolled (HCC) [E*02/16/2008 1 04/21/2014 ESOPHAGEAL REFLUX [K21.9] 03/06/2008 Benign Neoplasm of Colon [D12.6] 02/21/2009 Labyrinthitis [H83.09] 02/05/2010 06/07/2014 Dermatophytosis of nail [B35.1] 06/05/2011 Atrial fibrillation [I48.91] 07/03/2011 Anticoagulated on Coumadin [Z79.01] 07/03/2011 Chronic diarrhea [K52.9] 09/16/2011 06/07/2014 Class 2 severe obesity due to excess calories w*09/16/2011 Stasis dermatitis of both legs [I87.2] 04/05/2013 Foot callus [L84] 10/04/2014 Subsequent non-ST elevation (NSTEMI) myocardial*12/25/2014 Syncope [R55] 02/19/2015 Hyperlipidemia LDL goal <100 [E78.5] 02/19/2015 ASHD (arteriosclerotic heart disease) [I25.10] 02/19/2015 Neurocardiogenic syncope [R55] 03/01/2015 Dysphagia [R13.10] 03/01/2015 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 Balanitis [N48.1] 11/16/2016 Coronary angioplasty status [Z98.61] 11/16/2016 Elevated troponin I level [R79.89] 01/29/2013 More... Family history of cerebrovascular accident (CVA*01/26/2018 History of deep venous thrombosis [Z86.718] 01/26/2018 History of non-ST elevation myocardial infarcti*01/26/2018 Ischemic cardiomyopathy [I25.5] 11/20/2017 Leukocytosis [D72.829] 01/29/2013 More... JESSICA (obstructive sleep apnea) [G47.33] 07/26/2018 RLS (restless legs syndrome) [G25.81] 07/28/2018 Localized swelling, mass and lump, neck [R22.1] 07/28/2018 Acute on chronic systolic congestive heart fail*12/17/2018 Encounter Status:Closed by BLOSSOM (PHARMACIST)JOLEEN on progress on 2019-11 PROGRESS HNO ID: [id number] Normal 12-15-2019 [place] Author: Denita Thorpe (Pharmacist) Clinic Service: ? Aneudy Author Type: Pharmacist ([id number]) Type: Progress Notes Filed: 12/27/2019 8:49 AM Note Text: TELEPHONIC APPOINTMENT [place] law requires the collaborative practice agreement to be initiated by a physician in order to provide medication titration. Thus, pharmacy will only provide medication recommendations and counseling today , unless recommendations are approved verbally by the consulting prov ider. ? REASON FOR CONSULT: DM GOALS: A1c <?8%?(PCP prefers <7.5%) CONSULTING PROVIDER:?ELBA?Deniz Garsia??? Date of Consult:?09/16/2019 ? Lovely Devi is a 73 year old male was last seen b y PCP, Dr. Morgan Valdez III MD on?10/27/2019.? Subjective: Patient is CALLED today for Follow Up pharmacotherapy manage ment appointment for diabetes. At 09/15 ROLL TESTER?appt,?insulin NPH dose decreased pt was consulted to pharmacy due to increased hypoglycemia.?At last ROLL TESTER visit gabapentin was initiated and empiric treatment for UTI was s tarted with nitrofurantoin monohydrate.?At PharmD visit on?,?ins ulin lispro dose was decreased and patient was recommended to pursue bas al/bolus insulin pens through [employer] [facility] patient assistance. At last PCP appt,?no medication changes made but patient was encouraged to watch carbohydrates in diet and exercise regularly. At last pharmacy follow up o n 11/04/2019, insulin R doses decreased due to hypoglycemia. At last Pharm D visit on 11/20, no medication changes made as patient awaited approval of insulins through patient assistance. On 12/11 phone encounter, patient confirmed receiving Basaglar and Humalog from [facility], he was instructed t hat Basaglar would replace Novolin N and Humalog would replace Novolin R, and was instructed to adjust dose of Basaglar to 30 units twice ajay y. INTERIM HISTORY: Reports he has first Basaglar dose last night. Pt chose to s tart Basaglar dose at 34 units BID dosing as he felt BG have been higher. Starting to see some improvement in BG trending down again, state 7-day average in CGM shows average of 164 mg/dL. Reports the last several days, BG consistently been 124-150 mg/dL No readings under 70 mg/dL, 76 was lowest reading. Scanned BG at 3 am last night and it was 124 mg/dL, but at 8 am it had trended up to 200 mg/dL. States it was an isolated higher re ading. He utilized sliding scale with breakfast and BG trended back do wn. Current DM Medications: Insulin lispro (Humalog) 17 units three times daily before m eals + Sliding Scale (1 units for every 50 mg/dL above 150 mg/dL) Insulin glargien (Basaglar) 30 units twice daily - Taking 34 units BID Preventative Medications: ? On NIYA/ARB:?Yes ? On Statin:?Yes ? On ASA:?Yes ? ROS: ? Patient?denies?CP, SOB, FAITH, blurred vision, dizziness or l ightheadedness ? Patient?denies?symptoms of hypoglycemia (sweating, anxiety , palpitations, hunger, and tremor) ? Patient?denies?symptoms of hyperglycemia (polyuria, polydi psia, polyphagia) ? Patient?denies?potential medication adverse effects ? MEDICATIONS: ? Pill bottles?are not?present. ? Adherence:?denies?missed doses. ? Pharmacy:?[facility] ? Rx coverage:?Medicare ? Affordability:?insulins through [employer] [facility] ? 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 Esophageal Reflux Benign Neoplasm of Colon Dermatophytosis of Nail Atrial Fibrillation (Hcc) Anticoagulated On Coumadin Class 2 Severe Obesity Due to Excess Calories With Serious C omorbidity and Body Mass Index (Bmi) of 38.0 to 38.9 in Adult ([facility]) Stasis Dermatitis of Both Legs Foot Callus Subsequent Non-St Elevation (Nstemi) Myocardial Infarction W ithin 4 Weeks of Initial Infarction ([facility]) Syncope Hyperlipidemia Ldl Goal <100 Ashd (Arteriosclerotic Heart Disease) Neurocardiogenic Syncope 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 , With Long-Term Current Use of Insulin (Hcc) Facet Arthritis of Lumbar Region Adenopathy Atrial Flutter ([facility]) Balanitis Coronary Angioplasty Status Elevated Troponin I Level Family History of Cerebrovascular Accident (Cva) History of Deep Venous Thrombosis History of Non-St Elevation Myocardial Infarction (Nstemi) Ischemic Cardiomyopathy Leukocytosis Jessica (Obstructive Sleep Apnea) Rls (Restless Legs Syndrome) Localized Swelling, Mass and Lump, Neck Acute On Chronic Systolic Congestive Heart Failure (Hcc) PAST MEDICAL HISTORY Diagnosis Date - ASHD (arteriosclerotic heart disease) 02/19/2015 - Atrial fibrillation (HCC) 07/03/2011 - Automatic implantable cardiac defibrillator in situ - Petit's esophagus with esophagitis 03/01/2015 - Benign neoplasm of colon - Chronic diarrhea 09/16/2011 - Coronary atherosclerosis of unspecified type of vessel, na tive or graft s/p PR in 1985 - Diverticulosis of colon (without mention of hemorrhage) - Duodenitis without mention of hemorrhage - Dysphagia 03/01/2015 - Facet arthritis of lumbar region 07/14/2017 - GERD (gastroesophageal reflux disease) 06/10/12 - Heart attack (HCC) - Labyrinthitis 02/05/2010 - Neurocardiogenic syncope 03/01/2015 - Obesity 09/16/2011 - JESSICA treated with BiPAP DME [employer] - Other and unspecified hyperlipidemia - Other specified forms of chronic ischemic heart disease - Paroxysmal ventricular tachycardia (HCC) - Snoring - Stroke ([facility]) - Tinea of nail 01/13/2011 - Type 2 diabetes mellitus with stage 3 chronic kidney disea se, with long-term current use of insulin ([facility]) 06/15/2017 - Unspecified essential hypertension ALLERGIES Allergen Reactions - Morphine - Rocephin [Ceftriaxo* Other: See Comments Hot flashes; redness to skin Current Outpatient Medications Medication Sig Dispense Refill - insulin lispro (HUMALOG KWIKPEN INSULIN) 100 unit/mL Injec t 17 Units subcutaneously three times daily before meals. Plus sliding scale as directed ( 1 unit for every 50 mg/dL above 150 mg/dL) - insulin glargine (BASAGLAR KWIKPEN U-100 INSULIN) 100 unit /mL (3 mL) Inject 30 Units subcutaneously every 12 hours. - gabapentin (NEURONTIN) 300 mg capsule Take 3 capsules by m outh three times daily for 30 days. 270 capsule 0 - nortriptyline (PAMELOR) 25 mg capsule Take 1 capsule by mo uth daily at bedtime. 30 capsule 5 - rOPINIRole (REQUIP) 0.5 mg tablet Take 1 tablet by mouth d aily at bedtime. 90 tablet 3 - latanoprost (XALATAN) 0.005 % ophthalmic solution Use 1 Dr op in both eyes three times daily. - colestipol (COLESTID) 1 gram tablet Take 1 g by mouth twic e daily. - carvedilol (COREG) 3.125 mg tablet Take 2 tablets by mouth twice daily. for one week starting on 06/20/16 then will be taking 6.25 x 2 daily . 0 - Cholecalciferol, Vitamin D3, 50 mcg (2,000 unit) cap Take 1 capsule by mouth once daily. - warfarin (COUMADIN) 3 mg tablet 3 mg every Mon, Wed, Fri; 6 mg all other days 150 tablet 3 - clopidogrel (PLAVIX) 75 mg tablet Take 1 tablet by mouth o nce daily. 90 tablet 3 - Insulin Syringe-Needle U-100 (BD ULTRAFINE INSULIN) 1 mL 3 1 gauge x 5/16 1 Each five times daily. 450 Each 3 - lisinopril (ZESTRIL, PRINIVIL) 20 mg tablet Take 1 tablet by mouth once daily. 90 tablet 1 - furosemide (LASIX) 40 mg tablet Take 1 tablet by mouth twi ce daily. 60 tablet 11 - BIPAP Initiate BiPAP @ 24/18 cm of water with humidificati on. Mask (per patient preference), chin strap, filters, tubing / heated tu jin, heated humidity and lifetime supplies. Dx. JESSICA G47.33 327.23 - fax compliance download to [phone] 1 Device 0 - flash glucose sensor (FREESTYLE ANITRA 14 DAY SENSOR) kit 1 Each four times daily. 1 Kit 11 - Back Brace misc 1 Device once daily as needed. size large 1 Each 0 - amiodarone (PACERONE) 200 mg tablet Take 1 tablet by mouth once daily. - spironolactone (ALDACTONE) 25 mg tablet Take 1 tablet by m outh once daily. - isosorbide mononitrate ER (IMDUR) 30 mg 24 hr tablet Take 60 mg by mouth once daily. 0 - blood sugar diagnostic ([employer] BLOOD GLUCOSE SYSTEM) test strip Use as instructed to check blood sugar 3 to 4 times daily DM: yes I nsulin: yes DX:11.9 400 Strip 3 - ranolazine SR (RANEXA) 1,000 mg Tb12 Take 1 tablet by mout h twice daily. - fenofibrate nanocrystallized (TRICOR) 145 mg tablet Take 1 tablet by mouth once daily. 0 - pantoprazole DR (PROTONIX) 40 mg tablet Take 40 mg by mout h once daily. - Lancets (ONE TOUCH ULTRASOFT LANCETS) lancets Use with One touch Glucometer as directed 100 Each 3 - Aspirin 81 mg ORAL Tab Take 1 tablet by mouth once daily. Take with food. 30 tablet 11 - CRESTOR 40 MG TAB Take one(1) tablet daily. 0 - NITROGLYCERIN 0.3 MG SUBLINGUAL TAB Dissolve 0.4 mg under the tongue. Usual dose for angina is 1 tablet every 5 minutes for maximu m of 3 doses in 15 minutes. 0 No current facility-administered medications for this visit. Objective: Last 3 Encounter BP Readings: Date: BP: 10/27/2019 119/72 10/06/2019 128/70 09/16/2019 122/70 Wt: 120.7 kg (266 lb) BMI: 40.45 kg/(m2) LABS Lab Results Component Value Date HBA1C 7.6 10/14/2019 HBA1C 6.8 04/21/2019 HBA1C 7.3 01/14/2019 CMP: Glucose 209 12/09/2019 BUN 27 10/14/2019 Creatinine 1.68 12/09/2019 Sodium 136 12/09/2019 Potassium 4.3 12/09/2019 Chloride 98 12/09/2019 CO2 24 10/14/2019 Protein, Total 6.0 10/14/2019 Albumin 4.1 10/14/2019 Calcium 8.7 12/09/2019 Alkaline Phosphatase 55 10/14/2019 Bilirubin, Total 0.4 10/14/2019 AST 23 10/14/2019 ALT 26 10/14/2019 eGFR = 54 mL/min/1.73m2 Vitamin B12 Date Value Ref Range Status 12/17/2018 384 232 - 1,245 pg/mL Final Albumin/Creat Ratio (mg/g) Date Value 10/14/2019 Not calculated PHARMACOTHERAPY ASSESSMENT/PLAN: 1. Type 2 diabetes mellitus with stage 3 chronic kidney dise ase, with long-term current use of insulin (HCC) - ICD9: 250.40, 585.3 , V58.67, ICD10: E11.22, N18.3, Z79.4 A1c goal <?8%?(PCP prefers 7.5%);?not at goal?(last A1c?7.6% ); SMBG?improving on current regimen?with no s/sx hypoglycemia. No medication changes recommended today, as patient recently ma de insulin switch from Novolin N to Basaglar. Renal function and LFTs a ppropriate for continued use. ? ADJUSTED Insulin glargine (Basaglar) to 34 units twice rustam ly to match current dose on med list ? CONTINUE Insulin lispro (Humalog) 17 units three times rustam ly before meals + Sliding Scale (1 units for every 50 mg/dL above 150 mg/dL) ? HbA1c:?01/14/2020 Patient is not scheduled to see PCP. Patient to follow up with PharmD in 4 weeks. Patient verbalized understanding of instructions. Denita Thorpe, PharmD, BCACP Primary Care Clinical Pharmacist [facility]iel [facility] cnov on 2019-12-15 CNOV Office Visit ([facility]) Normal 12-15-[address] [place] [address] Clinic LOVELY DEVI ([id number]) 1945 M [place] Date Time Provider Department ([id number]) 12/15/19 10:30 AM KEMI (PHARMACIST)[facility] During your visit today, we recorded the following informati on about you: Anshul Hancock 12/27/2019 8:49 AM Signed TELEPHONIC APPOINTMENT [place] law requires the collaborative practice agreement to be initiated by a physician in order to provide medication titration. Th us, pharmacy will only provide medication recommend ations and counseling today, unless recommendations are approved verbally by the consulting provider. ? REASON FOR CONSULT: DM GOALS: A1c <?8%?(PCP prefers <7.5%) CONSULTING PROVIDER:?ELBA?Deniz Garsia??? Date of Consult:?09/16/2019 ? Lovely Devi is a 73 year old male was last seen by PCP, Dr. Morgan Valdez III MD on?10/27/2019.? Subjective: Patient is CALLED today for Follow Up pharmacotherapy management appointment for diabetes. At 09/15 ROLL TESTER?appt,?insulin NPH dose decreased pt was consulted to pharmacy due to increased hypoglycemia.?At last ROLL TESTER visit ga bapentin was initiated and empiric treatment for UTI was started with nit rofurantoin monohydrate.?At PharmD visit on?,?insulin lispro dose was decreased and patient was recommended to pursue basal/ bolus insulin pens through [employer] [facility] patient assistance. At last PCP appt,?no medication ch anges made but patient was encouraged to watch carbohydrates in diet an d exercise regularly. At last pharmacy follow up on 11/04/2019, insulin R doses decreased due to hypoglycemia. At last PharmD visit on 11/20, no medication changes made a s patient awaited approval of insulins through patient assistance. On 12/11 des ne encounter, patient confirmed receiving Basaglar and Humalog from [facility], he was instructed that Basaglar would replace Novolin N an d Humalog would replace Novolin R, and was instructed to adjust dose of Basaglar to 30 units twice daily. INTERIM HISTORY: Reports he has first Basaglar dose last night. Pt chose to start Basaglar dose at 34 units BID dosing as he felt BG have been higher. Starting to see some improve ment in BG trending down again, state 7-day average in CGM shows average of 164 mg/dL. Reports the last several days, BG consistently b een 124-150 mg/dL No readings under 70 mg/dL, 76 was lowest reading. Scanned BG at 3 am last night and it was 124 mg/ dL, but at 8am it had trended up to 200 mg/dL. States it was an isolat ed higher reading. He utilized sliding scale with breakfast and BG trended back down. Current DM Medications: Insulin lispro (Humalog) 17 units three times daily before m eals + Sliding Scale (1 units for every 50 mg/dL above 150 mg/dL) Insulin glargien (Basaglar) 30 units twice daily - Taking 34 units BID Preventative Medications: ? On NIYA/ARB:?Yes ? On Statin:?Yes ? On ASA:?Yes ? ROS: ? Patient?denies?CP, SOB, FAITH, blurred vision, dizziness or l ightheadedness ? Patient?denies?symptoms of hypoglycemia (sweating, anxie ty, palpitations, hunger, and tremor) ? Patient?denies?symptoms of hyperglycemia (poly uria, polydipsia, polyphagia) ? Patient?denies?potential medication adverse effects ? MEDICATIONS: ? Pill bottles?are not?present. ? Adherence:?denies?missed doses. ? Pharmacy:?[facility] ? Rx coverage:?Medicare ? Affordability:?insulins through Where ? 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 Esophageal Reflux Benign Neoplasm of Colon Dermatophytosis of Nail Atrial Fibrillation (Hcc) Anticoagulated On Coumadin Class 2 Severe Obesity Due t o Excess Calories With Serious Comorbidity and Body Mass Index (Bmi) of 38.0 to 38.9 in Adult ([facility]) Stasis Dermatitis of Both Legs Foot Callus Subsequent Non-St Elevation (Nstemi) Myocardial Infarc tion Within 4 Weeks of Initial Infarction (Hcc) Syncope Hyperlipidemia Ldl Goal <100 Ashd (Arteriosclerotic Heart Disease) Neurocardiogenic Syncope 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 With Stage 3 Chronic Kidney D isease, With Long-Term Current Use of Insulin (Hcc) Facet Arthritis of Lumbar Region Adenopathy Atrial Flutter (Hcc) Balanitis Coronary Angioplasty Status Elevated Troponin I Level Family History of Cerebrovascular Accident (Cva) History of Deep Venous Thrombosis History of Non-St Elevation Myocardial Infarction (Nstemi) Ischemic Cardiomyopathy Leukocytosis Jessica (Obstructive Sleep Apnea) Rls (Restless Legs Syndrome) Localized Swelling, Mass and Lump, Neck Acute On Chronic Systolic Congestive Heart Failure (Hcc) PAST MEDICAL HISTORY Diagnosis Date - ASHD (arteriosclerotic heart disease) 02/19/2015 - Atrial fibrillation (HCC) 07/03/2011 - Automatic implantable cardiac defibrillator in situ - Petit's esophagus with esophagitis 03/01/2015 - Benign neoplasm of colon - Chronic diarrhea 09/16/2011 - Coronary atherosclerosis of unspecified type of vessel, na tive or graft s/p PR in 1985 - Diverticulosis of colon (without mention of hemorrhage) - Duodenitis without mention of hemorrhage - Dysphagia 03/01/2015 - Facet arthritis of lumbar region 07/14/2017 - GERD (gastroesophageal reflux disease) 06/10/12 - Heart attack (HCC) - Labyrinthitis 02/05/2010 - Neurocardiogenic syncope 03/01/2015 - Obesity 09/16/2011 - JESSICA treated with BiPAP DME [employer] - Other and unspecified hyperlipidemia - Other specified forms of chronic ischemic heart disease - Paroxysmal ventricular tachycardia (HCC) - Snoring - Stroke (HCC) - Tinea of nail 01/13/2011 - Type 2 diabetes mellitus with st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, with long-term current use of insulin (HCC) 06/15/2017 - Unspecified essential hypertension ALLERGIES Allergen Reactions - Morphine - Rocephin [Ceftriaxo* Other: See Comments Hot flashes; redness to skin Current Outpatient Medications Medication Sig Dispense Refill - insulin lispro (HUMALOG KWIKPEN INSULIN) 100 unit/mL Injec t 17 Units subcutaneously three times d aily before meals. Plus sliding scale as directed ( 1 unit for every 50 mg/dL above 150 mg/dL) - insulin glargine (BASAGLAR KWIKPEN U-100 INSUL IN) 100 unit/mL (3 mL) Inject 30 Units subcutaneously every 12 hours. - gabapentin (NEURONTIN) 300 mg capsule Take 3 capsule s by mouth three times daily for 30 days. 270 capsule 0 - nortriptyline (PAMELOR) 25 mg capsule Take 1 capsule by mo uth daily at bedtime. 30 capsule 5 - rOPINIRole (REQUIP) 0.5 mg tablet Take 1 tablet by mouth daily at bedtime. 90 tablet 3 - latanoprost (XALATAN) 0.005 % ophthalmic solution Use 1 Drop in both eyes three times daily. - colestipol (COLESTID) 1 gram tablet Take 1 g by mouth twic e daily. - carvedilol (COREG) 3.125 mg tablet Take 2 tabl ets by mouth twice daily. for one week starting on 06/20/16 then will be taking 6.25 x 2 da alisha . 0 - Cholecalciferol, Vitamin D3, 50 mcg (2 ,000 unit) cap Take 1 capsule by mouth once daily. - warfarin (COUMADIN) 3 mg t ablet 3 mg every Mon, Wed, Fri; 6 mg all other days 150 tablet 3 - clopidogrel (PLAVIX) 75 mg tablet Take 1 tablet by mouth o nce daily. 90 tablet 3 - Insulin Syringe-Needle U-100 (BD ULTRAFINE INSULIN) 1 mL 31 gauge x 5/16 1 Each five times daily. 450 Each 3 - lisinopril (ZESTRIL, PRINIVIL) 20 mg tablet Take 1 tablet by mouth once daily. 90 tablet 1 - furosemide (LASIX) 40 mg t ablet Take 1 tablet by mouth twice daily. 60 tablet 11 - BIPAP Initiate BiPAP @ 24/18 cm of water with humidificati on. Mask (per patient preference), chin strap, filters, tubing / heated tu jin, heated humidity and lifetime supplies. Dx. JESSICA G47.33 327.23 - fax compliance download to [phone] 1 Device 0 - flash glucose sensor (FREESTYLE ANITRA 14 DAY SENSOR) kit 1 Each four times daily. 1 Kit 11 - Back Brace misc 1 Device once daily as needed. size large 1 Each 0 - amiodarone (PACERONE) 200 mg tablet Take 1 tablet by mouth once daily. - spironolactone (ALDACTONE) 25 mg tablet Take 1 table t by mouth once daily. - isosorbide mononitrate ER (IMDUR) 30 mg 24 hr tablet Take 60 mg by mouth once daily. 0 - blood sugar diagnostic ([employer] BLOOD GLUCOSE SYSTEM) test strip Use as instructed to check blood ureña gar 3 to 4 times daily DM: yes Insulin: yes DX:11.9 400 Strip 3 - ranolazine SR (RANEXA) 1,000 mg Tb12 Take 1 tablet by mout h twice daily. - fenofibrate nanocrystallized (TRICOR) 145 mg tablet Take 1 tablet by mouth once daily. 0 - pantoprazole DR (PROTONIX) 40 mg tablet Take 40 mg by mout h once daily. - Lancets (ONE TOUCH ULTRASO FT LANCETS) lancets Use with [employer] Glucometer as directed 100 Each 3 - Aspirin 81 mg ORAL Tab Take 1 tablet b y mouth once daily. Take with food. 30 tablet 11 - CRESTOR 40 MG TAB Take one(1) tablet daily. 0 - NITROGLYCERIN 0.3 MG SUBLINGUAL TAB Dissolve 0 .4 mg under the tongue. Usual dose for angina is 1 tablet every 5 minutes for maximum of 3 doses in 15 minutes. 0 No current facility-administered medications for this visit. Objective: Last 3 Encounter BP Readings: Date: BP: 10/27/2019 119/72 10/06/2019 128/70 09/16/2019 122/70 Wt: 120.7 kg (266 lb) BMI: 40.45 kg/(m2) LABS Lab Results Component Value Date HBA1C 7.6 10/14/2019 HBA1C 6.8 04/21/2019 HBA1C 7.3 01/14/2019 CMP: Glucose 209 12/09/2019 BUN 27 10/14/2019 Creatinine 1.68 12/09/2019 Sodium 136 12/09/2019 Potassium 4.3 12/09/2019 Chloride 98 12/09/2019 CO2 24 10/14/2019 Protein, Total 6.0 10/14/2019 Albumin 4.1 10/14/2019 Calcium 8.7 12/09/2019 Alkaline Phosphatase 55 10/14/2019 Bilirubin, Total 0.4 10/14/2019 AST 23 10/14/2019 ALT 26 10/14/2019 eGFR = 54 mL/min/1.73m2 Vitamin B12 Date Value Ref Range Status 12/17/2018 384 232 - 1,245 pg/mL Final Albumin/Creat Ratio (mg/g) Date Value 10/14/2019 Not calculated PHARMACOTHERAPY ASSESSMENT/PLAN: 1. Type 2 diabetes mellitus with st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, with long-term current use of insulin ([facility]) - ICD9: 250.40, 585.3, V58.67, ICD10: E11.22, N18.3, Z79.4 A1c goal <?8%?(PCP prefers 7.5%);?not at goal?(l ast A1c?7.6%); SMBG?improving on current regimen?with no s/sx hypoglycemia. No medication changes recommended today, as patient recently made insulin sw itch from Novolin N to Basaglar. Renal function and LFTs appropriate for continued use. ? ADJUSTED Insulin glargine (Basaglar) to 34 units twice daily to match current dose on med list ? CONTINUE Insulin lispro (Humalog) 17 units thr ee times daily before meals + Sliding Scale (1 units for every 50 mg/dL above 150 mg/dL) ? HbA1c:?01/14/2020 Patient is not scheduled to see PCP. Patient to follow up with PharmD in 4 weeks. Patient verbalized understanding of instructions. Denita Thorpe, LisaD, BCACP Primary Care Clinical Pharmacist [facility] Referring Provider: DENIZ GARSIA [[id number]] Allergies As of Date: 12/15/2019 Noted Allergy Reaction MORPHINE 02/28/2005 ROCEPHIN (CEFTRIAXONE SODIUM) 06/20/2014 14 - Other: See Com ments Comments: Hot flashes; redness to skin Date Reviewed: 10/27/2019 Reviewed by: Linwood ([facility]) JAZZY Carpenter - Fully Assessed Reason for Visit: Allied Health Visit [5] Cmt: DM Primary Visit Diagnosis:Type 2 diabetes mellitus with st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, with long-term current use of insulin ([facility]) [E11.22, N18.3, Z79.4] Prescriptions as of 12/15/2019 Sig: BASAGLAR KWIKPEN U-100 INSULI* Inject 34 Units subcutaneousl * INSULIN LISPRO (U-100) 100 UN* Inject 17 Units subcutaneousl * GABAPENTIN 300 MG CAPSULE Take 3 capsules by mouth thre* NORTRIPTYLINE 25 MG CAPSULE Take 1 capsule by mouth daily* ROPINIROLE 0.5 MG TABLET Take 1 tablet by mouth daily * LATANOPROST 0.005 % EYE DROPS Use 1 Drop in both eyes three* COLESTIPOL 1 GRAM TABLET Take 1 g by mouth twice daily. CARVEDILOL 3.125 MG TABLET Take 2 tablets by mouth twice* CHOLECALCIFEROL (VITAMIN D3) * Take 1 capsule by mouth once * WARFARIN 3 MG TABLET 3 mg every Mon, Wed, Fri; 6 m* CLOPIDOGREL 75 MG TABLET Take 1 tablet by mouth once d* INSULIN SYRINGE U-100 WITH NE* 1 Each five times daily. LISINOPRIL 20 MG TABLET Take 1 tablet by mouth once d* FUROSEMIDE 40 MG TABLET Take 1 tablet by mouth twice * BIPAP Initiate BiPAP @ 24/18 cm of * FLASH GLUCOSE SENSOR KIT 1 Each four times daily. BACK BRACE 1 Device once daily as needed* AMIODARONE 200 MG TABLET Take 1 tablet by mouth once d* SPIRONOLACTONE 25 MG TABLET Take 1 tablet by mouth once d* ISOSORBIDE MONONITRATE ER 30 * Take 60 mg by mouth once ajay * BLOOD SUGAR DIAGNOSTIC STRIPS Use as instructed to check bl* RANOLAZINE ER 1,000 MG TABLET* Take 1 tablet by mouth twice * FENOFIBRATE NANOCRYSTALLIZED * Take 1 tablet by mouth once d * PANTOPRAZOLE 40 MG TABLET,DEL* Take 40 mg by mouth once ajay * LANCETS Use with Onetouch Glucometer * ASPIRIN 81 MG TABLET Take 1 tablet by mouth once d* CRESTOR 40 MG TABLET Take one(1) tablet daily. 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/2007 Type 2 diabetes mellitus, uncontrolled (HCC) [E*02/16/2008 1 04/21/2014 ESOPHAGEAL REFLUX [K21.9] 03/06/2008 Benign Neoplasm of Colon [D12.6] 02/21/2009 Labyrinthitis [H83.09] 02/05/2010 06/07/2014 Dermatophytosis of nail [B35.1] 06/05/2011 Atrial fibrillation [I48.91] 07/03/2011 Anticoagulated on Coumadin [Z79.01] 07/03/2011 Chronic diarrhea [K52.9] 09/16/2011 06/07/2014 Class 2 severe obesity due to excess calories w*09/16/2011 Stasis dermatitis of both legs [I87.2] 04/05/2013 Foot callus [L84] 10/04/2014 Subsequent non-ST elevation (NSTEMI) myocardial*12/25/2014 Syncope [R55] 02/19/2015 Hyperlipidemia LDL goal <100 [E78.5] 02/19/2015 ASHD (arteriosclerotic heart disease) [I25.10] 02/19/2015 Neurocardiogenic syncope [R55] 03/01/2015 Dysphagia [R13.10] 03/01/2015 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 Balanitis [N48.1] 11/16/2016 Coronary angioplasty status [Z98.61] 11/16/2016 Elevated troponin I level [R79.89] 01/29/2013 More... Family history of cerebrovascular accident (CVA*01/26/2018 History of deep venous thrombosis [Z86.718] 01/26/2018 History of non-ST elevation myocardial infarcti*01/26/2018 Ischemic cardiomyopathy [I25.5] 11/20/2017 Leukocytosis [D72.829] 01/29/2013 More... JESSICA (obstructive sleep apnea) [G47.33] 07/26/2018 RLS (restless legs syndrome) [G25.81] 07/28/2018 Localized swelling, mass and lump, neck [R22.1] 07/28/2018 Acute on chronic systolic congestive heart fail*12/17/2018 Encounter Status:Closed by KEMI (PHARMACIST)DENITA on No panel information on 2019-12-09 Anion gap [Moles/Vol] 6 mmol/L 12-09-19 [facility] ([id number]) BASO ABS 12-09-2019 [facility] (56867) Basophils/100 WBC 12-09-2019 [facility] (d) (33664) Calcium [Mass/Vol] 8.7 8.8 - 10.5 MG/DL Abnormal 12-09-2019 [facility] MG/DL (96330) Chloride [Moles/Vol] 98 98 - 107 MEQ/L 0 [facility] MEQ/L (06597) Creatinine [Mass/Vol] 1.68 0.6 - 1.3 MG/DL Abnormal 12-09-19 [facility] MG/DL (42197) EOS ABS 12-09-2019 [facility] (93652) Eosinophils/100 WBC 12-09-2019 [facility] (Bld) (82754) Erythrocyte 12-09-2019 [facility] distribution width ( 74309) (RBC) [Ratio] GFR AFR AMER 52 mL/MIN 12-09-2019 [facility] (89155) GFR/1.73 sq 43 mL/MIN 12-09-2019 [facility] M.predicted MDRD (44 195) (S/P/Bld) [Vol rate/Area] Glucose [Mass/Vol] 209 74 - 106 MG/DL Abnormal 12-09-2019 [facility] MG/DL (98547) HCO3 (Bld) [Moles/Vol] 32.0 mmol/L 020 [facility] (96019) Hematocrit (Bld) 38.6 39 - 55 % % Abnormal 12-09-2019 [facility] [Volume fraction] (4 4195) Hemoglobin (Bld) 12.5 14 - 16.5 g/dL Abnormal 12-09-2019 [facility] [Mass/Vol] g/dL (40597) Lymphocytes (d) 12-09-2019 [facility] [#/Vol] (72509) Lymphocytes/100 WBC 12-09-2019 [facility] (d) (71994) MCH (RBC) [Entitic 29.8 25.4 - 34.6 pg 0 [facility] mass] pg (49277) MCHC (RBC) [Mass/Vol] 32.4 30 - 36 g/dL g/dL 12-08 [facility] (25421) MCV (RBC) [Entitic 91.9 79 - 98 fL fL 12-09-2019 [facility] vol] (32762) MONO ABS 12-09-2019 [facility] (63307) Monocytes/100 WBC 12-09-2019 [facility] (d) (42536) NEUT ABS 12-09-2019 [facility] (66065) Neutrophils/100 WBC 12-09-2019 [facility] (d) (15423) Platelet mean volume 10.4 7.4 - 10.4 fL fL 12-08 [facility] ([facility]) [Entitic vol] (63426) Platelets (Bld) 168 140 - 440 K/uL 12-09-2019 [facility] [#/Vol] K/uL (11300) Potassium [Moles/Vol] 4.3 3.5 - 5.1 MEQ/L 12-09-19 20 [facility] MEQ/L (48998) RBC (Bld) [#/Vol] 4.20 4 - 6 M/uL M/uL 12-09-2019 [facility] (91108) Sodium [Moles/Vol] 136 136 - 145 MEQ/L 12-09-2019 [facility] MEQ/L (11290) Urea nitrogen 32 6 - 20 mg/dL mg/dL Abnormal 12-09-2019 [facility] [Mass/Vol] (48646) WBC (Bld) [#/Vol] 5.7 3.9 - 11 K/uL K/uL 12-09-19 20 [facility] (95156) cnpn on 2019-12-08 CNPN Telephone (FAMPWS) Normal 12-08-2019 [facility] LOVELY DEVI ([id number]) [address] [facility] Time Provider Department ([id number]) 12/08/19 MORGAN VALDEZ III During your visit today, we recorded the following informati on about you: Tasha Chan RN 12/08/2019 1:08 PM Signed Argelia- OT- [facility]- reporting POC- reports this was a delay of care visit: reports this was a 1 time visit only, patient is doing wel l, Argelia went over breathing techniques for SOB, and left her phone # wit h patient to call with any questions or concerns. Morgan Valdez III MD 12/08/2019 1:26 PM Signed noted Morgan Valdez III MD Allergies As of Date: 12/08/2019 Noted Allergy Reaction MORPHINE 02/28/2005 ROCEPHIN (CEFTRIAXONE SODIUM) 06/20/2014 14 - Other: See Com ments Comments: Hot flashes; redness to skin Date Reviewed: 10/27/2019 Reviewed by: Linwood ([facility]) JAZZY Carpenter - Fully Assessed Reason for Visit: [facility] OT POC [Other] Prescriptions as of 12/08/2019 Sig: GABAPENTIN 300 MG CAPSULE Take 3 capsules by mouth thre* NORTRIPTYLINE 25 MG CAPSULE Take 1 capsule by mouth daily* INSULIN U-100 REGULAR HUMAN 1* Inject 15 units Subcutaneousl * ROPINIROLE 0.5 MG TABLET Take 1 tablet by mouth daily * INSULIN NPH ISOPHANE U-100 HU* 32 units subcutaneous before * LATANOPROST 0.005 % EYE DROPS Use 1 Drop in both eyes three* COLESTIPOL 1 GRAM TABLET Take 1 g by mouth twice daily. CARVEDILOL 3.125 MG TABLET Take 2 tablets by mouth twice* CHOLECALCIFEROL (VITAMIN D3) * Take 1 capsule by mouth once * WARFARIN 3 MG TABLET 3 mg every Mon, Wed, Fri; 6 m* CLOPIDOGREL 75 MG TABLET Take 1 tablet by mouth once d* INSULIN SYRINGE U-100 WITH NE* 1 Each five times daily. LISINOPRIL 20 MG TABLET Take 1 tablet by mouth once d* FUROSEMIDE 40 MG TABLET Take 1 tablet by mouth twice * BIPAP Initiate BiPAP @ 24/18 cm of * FLASH GLUCOSE SENSOR KIT 1 Each four times daily. BACK BRACE 1 Device once daily as needed* AMIODARONE 200 MG TABLET Take 1 tablet by mouth once d* SPIRONOLACTONE 25 MG TABLET Take 1 tablet by mouth once d* ISOSORBIDE MONONITRATE ER 30 * Take 60 mg by mouth once ajay * BLOOD SUGAR DIAGNOSTIC STRIPS Use as instructed to check bl* RANOLAZINE ER 1,000 MG TABLET* Take 1 tablet by mouth twice * FENOFIBRATE NANOCRYSTALLIZED * Take 1 tablet by mouth once d * PANTOPRAZOLE 40 MG TABLET,DEL* Take 40 mg by mouth once ajay * LANCETS Use with Onetouch Glucometer * ASPIRIN 81 MG TABLET Take 1 tablet by mouth once d* CRESTOR 40 MG TABLET Take one(1) tablet daily. 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*09/16/2007 Type 2 diabetes mellitus, uncontrolled (HCC) [E*02/16/2008 1 04/21/2014 ESOPHAGEAL REFLUX [K21.9] 03/06/2008 Benign Neoplasm of Colon [D12.6] 02/21/2009 Labyrinthitis [H83.09] 02/05/2010 06/07/2014 Dermatophytosis of nail [B35.1] 06/05/2011 Atrial fibrillation [I48.91] 07/03/2011 Anticoagulated on Coumadin [Z79.01] 07/03/2011 Chronic diarrhea [K52.9] 09/16/2011 06/07/2014 Class 2 severe obesity due to excess calories w*09/16/2011 Stasis dermatitis of both legs [I87.2] 04/05/2013 Foot callus [L84] 10/04/2014 Subsequent non-ST elevation (NSTEMI) myocardial*12/25/2014 Syncope [R55] 02/19/2015 Hyperlipidemia LDL goal <100 [E78.5] 02/19/2015 ASHD (arteriosclerotic heart disease) [I25.10] 02/19/2015 Neurocardiogenic syncope [R55] 03/01/2015 Dysphagia [R13.10] 03/01/2015 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 Balanitis [N48.1] 11/16/2016 Coronary angioplasty status [Z98.61] 11/16/2016 Elevated troponin I level [R79.89] 01/29/2013 More... Family history of cerebrovascular accident (CVA*01/26/2018 History of deep venous thrombosis [Z86.718] 01/26/2018 History of non-ST elevation myocardial infarcti*01/26/2018 Ischemic cardiomyopathy [I25.5] 11/20/2017 Leukocytosis [D72.829] 01/29/2013 More... JESSICA (obstructive sleep apnea) [G47.33] 07/26/2018 RLS (restless legs syndrome) [G25.81] 07/28/2018 Localized swelling, mass and lump, neck [R22.1] 07/28/2018 Acute on chronic systolic congestive heart fail*12/17/2018 Encounter Status:Closed by MORGAN VALDEZ III, MD on 12/08/19 obsolete on 2019-11 OBSOLETE Refill (FAMPWS) Normal 12-07-2019 [facility] LOVELY DEVI ([id number]) 1945 M [facility] Time Provider Department ([id number]) 12/07/19 MORGAN VALDEZ III During your visit today, we recorded the following informati on about you: Nette Goetz MA, JAZZY 12/07/2019 9:56 AM Signed Last Refill:11/26/19 Qty:270 Refills:0 Next Scheduled Office Visit:none Last Office Visit:10/27/19 Nette Goetz MA Allergies As of Date: 12/07/2019 Noted Allergy Reaction MORPHINE 02/28/2005 ROCEPHIN (CEFTRIAXONE SODIUM) 06/20/2014 14 - Other: See Com ments Comments: Hot flashes; redness to skin Date Reviewed: 10/27/2019 Reviewed by: Linwood ([facility]) JAZZY Carpenter - Fully Assessed Reason for Visit: Refill Request [94] Visit Diagnosis: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, with long-term current use of insulin (HCC) [E11.40, Z79.4] Order(s):gabapentin (NEURONTIN) 300 mg capsuleTake 3 c apsules by mouth three times daily for 30 days.Disp: 270 capsuleRfl: 0 Prescriptions as of 12/07/2019 Sig: GABAPENTIN 300 MG CAPSULE Take 3 capsules by mouth thre* NORTRIPTYLINE 25 MG CAPSULE Take 1 capsule by mouth daily* INSULIN U-100 REGULAR HUMAN 1* Inject 15 units Subcutaneousl * ROPINIROLE 0.5 MG TABLET Take 1 tablet by mouth daily * INSULIN NPH ISOPHANE U-100 HU* 32 units subcutaneous before * LATANOPROST 0.005 % EYE DROPS Use 1 Drop in both eyes three* COLESTIPOL 1 GRAM TABLET Take 1 g by mouth twice daily. CARVEDILOL 3.125 MG TABLET Take 2 tablets by mouth twice* CHOLECALCIFEROL (VITAMIN D3) * Take 1 capsule by mouth once * WARFARIN 3 MG TABLET 3 mg every Mon, Wed, Fri; 6 m* CLOPIDOGREL 75 MG TABLET Take 1 tablet by mouth once d* INSULIN SYRINGE U-100 WITH NE* 1 Each five times daily. LISINOPRIL 20 MG TABLET Take 1 tablet by mouth once d* FUROSEMIDE 40 MG TABLET Take 1 tablet by mouth twice * BIPAP Initiate BiPAP @ 24/18 cm of * FLASH GLUCOSE SENSOR KIT 1 Each four times daily. BACK BRACE 1 Device once daily as needed* AMIODARONE 200 MG TABLET Take 1 tablet by mouth once d* SPIRONOLACTONE 25 MG TABLET Take 1 tablet by mouth once d* ISOSORBIDE MONONITRATE ER 30 * Take 60 mg by mouth once ajay * BLOOD SUGAR DIAGNOSTIC STRIPS Use as instructed to check bl* RANOLAZINE ER 1,000 MG TABLET* Take 1 tablet by mouth twice * FENOFIBRATE NANOCRYSTALLIZED * Take 1 tablet by mouth once d * PANTOPRAZOLE 40 MG TABLET,DEL* Take 40 mg by mouth once ajay * LANCETS Use with Onetouch Glucometer * ASPIRIN 81 MG TABLET Take 1 tablet by mouth once d* CRESTOR 40 MG TABLET Take one(1) tablet daily. 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/16/2007 Type 2 diabetes mellitus, uncontrolled (HCC) [E*02/16/2008 1 04/21/2014 ESOPHAGEAL REFLUX [K21.9] 03/06/2008 Benign Neoplasm of Colon [D12.6] 02/21/2009 Labyrinthitis [H83.09] 02/05/2010 06/07/2014 Dermatophytosis of nail [B35.1] 06/05/2011 Atrial fibrillation [I48.91] 07/03/2011 Anticoagulated on Coumadin [Z79.01] 07/03/2011 Chronic diarrhea [K52.9] 09/16/2011 06/07/2014 Class 2 severe obesity due to excess calories w*09/16/2011 Stasis dermatitis of both legs [I87.2] 04/05/2013 Foot callus [L84] 10/04/2014 Subsequent non-ST elevation (NSTEMI) myocardial*12/25/2014 Syncope [R55] 02/19/2015 Hyperlipidemia LDL goal <100 [E78.5] 02/19/2015 ASHD (arteriosclerotic heart disease) [I25.10] 02/19/2015 Neurocardiogenic syncope [R55] 03/01/2015 Dysphagia [R13.10] 03/01/2015 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 Balanitis [N48.1] 11/16/2016 Coronary angioplasty status [Z98.61] 11/16/2016 Elevated troponin I level [R79.89] 01/29/2013 More... Family history of cerebrovascular accident (CVA*01/26/2018 History of deep venous thrombosis [Z86.718] 01/26/2018 History of non-ST elevation myocardial infarcti*01/26/2018 Ischemic cardiomyopathy [I25.5] 11/20/2017 Leukocytosis [D72.829] 01/29/2013 More... JESSICA (obstructive sleep apnea) [G47.33] 07/26/2018 RLS (restless legs syndrome) [G25.81] 07/28/2018 Localized swelling, mass and lump, neck [R22.1] 07/28/2018 Acute on chronic systolic congestive heart fail*12/17/2018 Prescriptions ordered this encounter Disp Refills Start End GABAPENTIN 300 MG CAPSULE 270 * 0 12/07/2019 01/06/2020 Route: ORAL Sig: Take 3 capsules by mouth three times daily for 30 days. Medications Discontinued During This Encounter Prescriptions - gabapentin (NEURONTIN) 300 mg capsule (Discontinued) Take 3 capsules by mouth three times daily for 30 days. Encounter Status:Closed by MORGAN VALDEZ III, MD on 12/07/19 yoandy on 2019-12-07 [facility] Telephone (FAMPWS) Normal 12-07-2019 [facility] LOVELY DEVI ([id number]) [address] [facility] Time Provider Department ([id number]) 12/07/19 MORGAN VALDEZ III [facility] During your visit today, we recorded the following informati on about you: Cindi Eastman LPN 12/07/2019 10:56 AM Signed CARLITOS: Nicole with [facility] calling with plan of ca re for pt. 1 time visit only. Saw pt today at prior status having him try exercises taught in September to do thru out the day. Cindi Valdze III MD 12/07/2019 12:29 PM Signed Noted Morgna Valdez III, MD, FAAFP Allergies As of Date: 12/07/2019 Noted Allergy Reaction MORPHINE 02/28/2005 ROCEPHIN (CEFTRIAXONE SODIUM) 06/20/2014 14 - Other: See Com ments Comments: Hot flashes; redness to skin Date Reviewed: 10/27/2019 Reviewed by: [place] ([facility]) JAZZY Carpenter - Fully Assessed Reason for Visit: Plan of Care [Other] Cmt: [facility] PT Prescriptions as of 12/07/2019 Sig: NORTRIPTYLINE 25 MG CAPSULE Take 1 capsule by mouth daily* INSULIN U-100 REGULAR HUMAN 1* Inject 15 units Subcutaneousl * GABAPENTIN 300 MG CAPSULE Take 3 capsules by mouth thre* ROPINIROLE 0.5 MG TABLET Take 1 tablet by mouth daily * INSULIN NPH ISOPHANE U-100 HU* 32 units subcutaneous before * LATANOPROST 0.005 % EYE DROPS Use 1 Drop in both eyes three* COLESTIPOL 1 GRAM TABLET Take 1 g by mouth twice daily. CARVEDILOL 3.125 MG TABLET Take 2 tablets by mouth twice* CHOLECALCIFEROL (VITAMIN D3) * Take 1 capsule by mouth once * WARFARIN 3 MG TABLET 3 mg every Mon, Wed, Fri; 6 m* CLOPIDOGREL 75 MG TABLET Take 1 tablet by mouth once d* INSULIN SYRINGE U-100 WITH NE* 1 Each five times daily. LISINOPRIL 20 MG TABLET Take 1 tablet by mouth once d* FUROSEMIDE 40 MG TABLET Take 1 tablet by mouth twice * BIPAP Initiate BiPAP @ 24/18 cm of * FLASH GLUCOSE SENSOR KIT 1 Each four times daily. BACK BRACE 1 Device once daily as needed* AMIODARONE 200 MG TABLET Take 1 tablet by mouth once d* SPIRONOLACTONE 25 MG TABLET Take 1 tablet by mouth once d* ISOSORBIDE MONONITRATE ER 30 * Take 60 mg by mouth once ajay * BLOOD SUGAR DIAGNOSTIC STRIPS Use as instructed to check bl* RANOLAZINE ER 1,000 MG TABLET* Take 1 tablet by mouth twice * FENOFIBRATE NANOCRYSTALLIZED * Take 1 tablet by mouth once d * PANTOPRAZOLE 40 MG TABLET,DEL* Take 40 mg by mouth once ajay * LANCETS Use with Onetouch Glucometer * ASPIRIN 81 MG TABLET Take 1 tablet by mouth once d* CRESTOR 40 MG TABLET Take one(1) tablet daily. 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/16/2007 Type 2 diabetes mellitus, uncontrolled (HCC) [E*02/16/2008 1 04/21/2014 ESOPHAGEAL REFLUX [K21.9] 03/06/2008 Benign Neoplasm of Colon [D12.6] 02/21/2009 Labyrinthitis [H83.09] 02/05/2010 06/07/2014 Dermatophytosis of nail [B35.1] 06/05/2011 Atrial fibrillation [I48.91] 07/03/2011 Anticoagulated on Coumadin [Z79.01] 07/03/2011 Chronic diarrhea [K52.9] 09/16/2011 06/07/2014 Class 2 severe obesity due to excess calories w*09/16/2011 Stasis dermatitis of both legs [I87.2] 04/05/2013 Foot callus [L84] 10/04/2014 Subsequent non-ST elevation (NSTEMI) myocardial*12/25/2014 Syncope [R55] 02/19/2015 Hyperlipidemia LDL goal <100 [E78.5] 02/19/2015 ASHD (arteriosclerotic heart disease) [I25.10] 02/19/2015 Neurocardiogenic syncope [R55] 03/01/2015 Dysphagia [R13.10] 03/01/2015 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 Balanitis [N48.1] 11/16/2016 Coronary angioplasty status [Z98.61] 11/16/2016 Elevated troponin I level [R79.89] 01/29/2013 More... Family history of cerebrovascular accident (CVA*01/26/2018 History of deep venous thrombosis [Z86.718] 01/26/2018 History of non-ST elevation myocardial infarcti*01/26/2018 Ischemic cardiomyopathy [I25.5] 11/20/2017 Leukocytosis [D72.829] 01/29/2013 More... JESSICA (obstructive sleep apnea) [G47.33] 07/26/2018 RLS (restless legs syndrome) [G25.81] 07/28/2018 Localized swelling, mass and lump, neck [R22.1] 07/28/2018 Acute on chronic systolic congestive heart fail*12/17/2018 Encounter Status:Closed by MORGAN VALDEZ III, MD on 12/07/19 cnpn on 2019-12-06 CNPN Telephone (PHAMTE) Normal 12-06-2019 [facility] LOVELY DEVI ([id number]) 1945 M [facility] Time Provider Department ([id number]) 12/06/19 ANDRE (PHARMACIST)LEE During your visit today, we recorded the following informati on about you: Lee Moss, Pharmacist 12/06/2019 3:33 PM Signed [facility] Lovely Devi is a 74 year old year old male patient being evaluated today for anticoagulation Telemanagement visit. Patient is currently on the following anticoagulant Warfarin Labs PT INR (no units) Date Value 11/26/2018 Test sent to [facility]. 10/16/2017 1.8 01/16/2017 Test sent to [facility]. INR (POCT) (no units) Date Value 02/21/2019 2.9 01/24/2019 2.9 01/17/2019 3.2 INR Home CoaguChek (no units) Date Value 12/06/2019 1.6 11/23/2019 1.7 11/09/2019 2.7 Hemoglobin (g/dL) Date Value 01/14/2019 12.0 Hematocrit (%) Date Value 01/14/2019 37.9 Platelet Count (k/uL) Date Value 01/14/2019 154 Creatinine (mg/dL) Date Value 10/14/2019 1.30 04/21/2019 1.35 01/14/2019 1.24 Bilirubin, Total (mg/dL) Date Value 10/14/2019 0.4 ALT (U/L) Date Value 10/14/2019 26 AST (U/L) Date Value 10/14/2019 23 CrCl cannot be calculated (Unknown ideal weight.). ALLERGIES Allergen Reactions - Morphine - Rocephin [Ceftriaxo* Other: See Comments Hot flashes; redness to skin Indication for Warfarin: Paroxysmal atrial fibrillation (hcc ) Anticoagulated on coumadin Goal INR Range: Assessment: ? INR result of 1.6 is subtherapeutic. Plan: ? Advised patient to take 6mg today and tomorrow. Next home INR check scheduled on 12/20/2019 LVM for patient with above information a nd advised to call PAC at [phone] if any questions or changes to report. Would like to try one more time to reach patient. INR 2 weeks ago was low and lef t VM for patient so not sure if he got message. Lee Moss, Pharmacist Clinical Pharmacist, Pharmacy [facility]tico[facility] Pharm[facility] Pager: [phone] Description Patient has 3 mg tablets of warfarin. Patient takes in the m orning. . Cristina Escobar ([place]) 12/06/2019 5:16 PM Signed Patient called and left message that stated he r eceived a message re: his INR result and dosing but he cou ldn't understand what dose to take of his warfarin. Patient can be reached at [phone]. Cristina Escobar CPhT (Physician) Pharmacy Anticoagulation Clinic Anshul Marquez 12/06/2019 5:[address] [facility] Referring provider: No ref. provider found Lovely Devi is a 74 year old year old male patient being evaluated today for anticoagulation Telemanagement visit. Patient is currently on the following anticoagulant Warfarin Labs PT INR (no units) Date Value 11/26/2018 Test sent to [facility]. 10/16/2017 1.8 01/16/2017 Test sent to [facility]. INR (POCT) (no units) Date Value 02/21/2019 2.9 01/24/2019 2.9 01/17/2019 3.2 INR Home CoaguChek (no units) Date Value 12/06/2019 1.6 11/23/2019 1.7 11/09/2019 2.7 Hemoglobin (g/dL) Date Value 01/14/2019 12.0 Hematocrit (%) Date Value 01/14/2019 37.9 Platelet Count (k/uL) Date Value 01/14/2019 154 Creatinine (mg/dL) Date Value 10/14/2019 1.30 04/21/2019 1.35 01/14/2019 1.24 Bilirubin, Total (mg/dL) Date Value 10/14/2019 0.4 ALT (U/L) Date Value 10/14/2019 26 AST (U/L) Date Value 10/14/2019 23 CrCl cannot be calculated (Unknown ideal weight.). ALLERGIES Allergen Reactions - Morphine - Rocephin [Ceftriaxo* Other: See Comments Hot flashes; redness to skin Indication for Warfarin: Paroxysmal atrial fibrillation (hcc ) Anticoagulated on coumadin Goal INR Range: @INRGOAL@ Assessment: ? INR result of 1.6 is SUBtherapeutic due to: recent hospita lization per patient. Plan: ? Advised patient to increase dose for 1 day only then resume weekly regimen ? Next home INR check scheduled on 12/20/2019 ? Patient verbalizes understanding of the plan. ? Patient denies need for refills. Gabriela Phan, Pharmacist Clinical Pharmacist, Pharmacy Anticoagulation Clinic Pharmacy Anticoagulation Clinic Pager: [phone] Description Patient has 3 mg tablets of warfarin. Patient takes in the m orning. . Allergies As of Date: 12/06/2019 Noted Allergy Reaction MORPHINE 02/28/2005 ROCEPHIN (CEFTRIAXONE SODIUM) 06/20/2014 14 - Other: See Com ments Comments: Hot flashes; redness to skin Date Reviewed: 10/27/2019 Reviewed by: [place] ([facility]) JAZZY Carpenter - Fully Assessed Reason for Visit: Anticoagulation Telephone Fu [148] Cmt: Home INR result Primary Visit Diagnosis:Anticoagulated on Coumadin [Z79.01] Other Visit Diagnosis:Paroxysmal atrial fibrillation (HCC) [ I48.0] Prescriptions as of 12/06/2019 Sig: NORTRIPTYLINE 25 MG CAPSULE Take 1 capsule by mouth daily* INSULIN U-100 REGULAR HUMAN 1* Inject 15 units Subcutaneousl * GABAPENTIN 300 MG CAPSULE Take 3 capsules by mouth thre* ROPINIROLE 0.5 MG TABLET Take 1 tablet by mouth daily * INSULIN NPH ISOPHANE U-100 HU* 32 units subcutaneous before * LATANOPROST 0.005 % EYE DROPS Use 1 Drop in both eyes three* COLESTIPOL 1 GRAM TABLET Take 1 g by mouth twice daily. CARVEDILOL 3.125 MG TABLET Take 2 tablets by mouth twice* CHOLECALCIFEROL (VITAMIN D3) * Take 1 capsule by mouth once * WARFARIN 3 MG TABLET 3 mg every Mon, Wed, Fri; 6 m* CLOPIDOGREL 75 MG TABLET Take 1 tablet by mouth once d* INSULIN SYRINGE U-100 WITH NE* 1 Each five times daily. LISINOPRIL 20 MG TABLET Take 1 tablet by mouth once d* FUROSEMIDE 40 MG TABLET Take 1 tablet by mouth twice * BIPAP Initiate BiPAP @ 24/18 cm of * FLASH GLUCOSE SENSOR KIT 1 Each four times daily. BACK BRACE 1 Device once daily as needed* AMIODARONE 200 MG TABLET Take 1 tablet by mouth once d* SPIRONOLACTONE 25 MG TABLET Take 1 tablet by mouth once d* ISOSORBIDE MONONITRATE ER 30 * Take 60 mg by mouth once ajay * BLOOD SUGAR DIAGNOSTIC STRIPS Use as instructed to check bl* RANOLAZINE ER 1,000 MG TABLET* Take 1 tablet by mouth twice * FENOFIBRATE NANOCRYSTALLIZED * Take 1 tablet by mouth once d * PANTOPRAZOLE 40 MG TABLET,DEL* Take 40 mg by mouth once ajay * LANCETS Use with Onetouch Glucometer * ASPIRIN 81 MG TABLET Take 1 tablet by mouth once d* CRESTOR 40 MG TABLET Take one(1) tablet daily. 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/16/2007 Type 2 diabetes mellitus, uncontrolled (HCC) [E*02/16/2008 1 04/21/2014 ESOPHAGEAL REFLUX [K21.9] 03/06/2008 Benign Neoplasm of Colon [D12.6] 02/21/2009 Labyrinthitis [H83.09] 02/05/2010 06/07/2014 Dermatophytosis of nail [B35.1] 06/05/2011 Atrial fibrillation [I48.91] 07/03/2011 Anticoagulated on Coumadin [Z79.01] 07/03/2011 Chronic diarrhea [K52.9] 09/16/2011 06/07/2014 Class 2 severe obesity due to excess calories w*09/16/2011 Stasis dermatitis of both legs [I87.2] 04/05/2013 Foot callus [L84] 10/04/2014 Subsequent non-ST elevation (NSTEMI) myocardial*12/25/2014 Syncope [R55] 02/19/2015 Hyperlipidemia LDL goal <100 [E78.5] 02/19/2015 ASHD (arteriosclerotic heart disease) [I25.10] 02/19/2015 Neurocardiogenic syncope [R55] 03/01/2015 Dysphagia [R13.10] 03/01/2015 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 Balanitis [N48.1] 11/16/2016 Coronary angioplasty status [Z98.61] 11/16/2016 Elevated troponin I level [R79.89] 01/29/2013 More... Family history of cerebrovascular accident (CVA*01/26/2018 History of deep venous thrombosis [Z86.718] 01/26/2018 History of non-ST elevation myocardial infarcti*01/26/2018 Ischemic cardiomyopathy [I25.5] 11/20/2017 Leukocytosis [D72.829] 01/29/2013 More... JESSICA (obstructive sleep apnea) [G47.33] 07/26/2018 RLS (restless legs syndrome) [G25.81] 07/28/2018 Localized swelling, mass and lump, neck [R22.1] 07/28/2018 Acute on chronic systolic congestive heart fail*12/17/2018 Encounter Status:Closed by EMILIE (PHARMACIST)GABRIELA on CNPN Telephone (FAMPWS) Normal 12-06-2019 [facility] LOVELY DEVI ([id number]) 1945 M [facility] Date Time Provider Department ([id number]) 12/06/19 MORGAN VALDEZ III During your visit today, we recorded the following informati on about you: Cindi Eastman LPN 12/06/2019 4:51 PM Signed Melissa @ [facility] plan of care and resumption of car e. They saw patient he was dx with cellulitis R lower leg in the hospital. Will do wound m anagement and (he is seeing wound center has apt tomorrow.), disease process education and medication education. Was d/c from hospital on Thursday. Will see him 2 times for 3 weeks then 1 time for 1 week. PT and OT will also be seeing him. No response needed back unless you disagree with something. Cindi Valdez III MD 12/06/2019 5:28 PM Signed OK--I agree Morgan Valdez III MD Allergies As of Date: 12/06/2019 Noted Allergy Reaction MORPHINE 02/28/2005 ROCEPHIN (CEFTRIAXONE SODIUM) 06/20/2014 14 - Other: See Com ments Comments: Hot flashes; redness to skin Date Reviewed: 10/27/2019 Reviewed by: [place] ([facility]) JAZZY Carpenter - Fully Assessed Reason for Visit: Plan of Care [Other] Prescriptions as of 12/06/2019 Sig: NORTRIPTYLINE 25 MG CAPSULE Take 1 capsule by mouth daily* INSULIN U-100 REGULAR HUMAN 1* Inject 15 units Subcutaneousl * GABAPENTIN 300 MG CAPSULE Take 3 capsules by mouth thre* ROPINIROLE 0.5 MG TABLET Take 1 tablet by mouth daily * INSULIN NPH ISOPHANE U-100 HU* 32 units subcutaneous before * LATANOPROST 0.005 % EYE DROPS Use 1 Drop in both eyes three* COLESTIPOL 1 GRAM TABLET Take 1 g by mouth twice daily. CARVEDILOL 3.125 MG TABLET Take 2 tablets by mouth twice* CHOLECALCIFEROL (VITAMIN D3) * Take 1 capsule by mouth once * WARFARIN 3 MG TABLET 3 mg every Mon, Wed, Fri; 6 m* CLOPIDOGREL 75 MG TABLET Take 1 tablet by mouth once d* INSULIN SYRINGE U-100 WITH NE* 1 Each five times daily. LISINOPRIL 20 MG TABLET Take 1 tablet by mouth once d* FUROSEMIDE 40 MG TABLET Take 1 tablet by mouth twice * BIPAP Initiate BiPAP @ 24/18 cm of * FLASH GLUCOSE SENSOR KIT 1 Each four times daily. BACK BRACE 1 Device once daily as needed* AMIODARONE 200 MG TABLET Take 1 tablet by mouth once d* SPIRONOLACTONE 25 MG TABLET Take 1 tablet by mouth once d* ISOSORBIDE MONONITRATE ER 30 * Take 60 mg by mouth once ajay * BLOOD SUGAR DIAGNOSTIC STRIPS Use as instructed to check bl* RANOLAZINE ER 1,000 MG TABLET* Take 1 tablet by mouth twice * FENOFIBRATE NANOCRYSTALLIZED * Take 1 tablet by mouth once d * PANTOPRAZOLE 40 MG TABLET,DEL* Take 40 mg by mouth once ajay * LANCETS Use with OneAvangate BVuch Glucometer * ASPIRIN 81 MG TABLET Take 1 tablet by mouth once d* CRESTOR 40 MG TABLET Take one(1) tablet daily. 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/16/2007 Type 2 diabetes mellitus, uncontrolled (HCC) [E*02/16/2008 1 04/21/2014 ESOPHAGEAL REFLUX [K21.9] 03/06/2008 Benign Neoplasm of Colon [D12.6] 02/21/2009 Labyrinthitis [H83.09] 02/05/2010 06/07/2014 Dermatophytosis of nail [B35.1] 06/05/2011 Atrial fibrillation [I48.91] 07/03/2011 Anticoagulated on Coumadin [Z79.01] 07/03/2011 Chronic diarrhea [K52.9] 09/16/2011 06/07/2014 Class 2 severe obesity due to excess calories w*09/16/2011 Stasis dermatitis of both legs [I87.2] 04/05/2013 Foot callus [L84] 10/04/2014 Subsequent non-ST elevation (NSTEMI) myocardial*12/25/2014 Syncope [R55] 02/19/2015 Hyperlipidemia LDL goal <100 [E78.5] 02/19/2015 ASHD (arteriosclerotic heart disease) [I25.10] 02/19/2015 Neurocardiogenic syncope [R55] 03/01/2015 Dysphagia [R13.10] 03/01/2015 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 Balanitis [N48.1] 11/16/2016 Coronary angioplasty status [Z98.61] 11/16/2016 Elevated troponin I level [R79.89] 01/29/2013 More... Family history of cerebrovascular accident (CVA*01/26/2018 History of deep venous thrombosis [Z86.718] 01/26/2018 History of non-ST elevation myocardial infarcti*01/26/2018 Ischemic cardiomyopathy [I25.5] 11/20/2017 Leukocytosis [D72.829] 01/29/2013 More... JESSICA (obstructive sleep apnea) [G47.33] 07/26/2018 RLS (restless legs syndrome) [G25.81] 07/28/2018 Localized swelling, mass and lump, neck [R22.1] 07/28/2018 Acute on chronic systolic congestive heart fail*12/17/2018 Encounter Status:Closed by MORGAN VALDEZ III, MD on 12/06/19 No panel information on 2019-12-06 INR Coag (BldC) [Relative 1.6 2.0 - 3.0 Abnormal 09-0 [facility] ([id number]) time] cnpn on 2019-11-30 CNPN Telephone (PHMEWO) Normal 11-30-2019 [facility] LOVELY DEVI ([id number]) 1945 M [facility] Time Provider Department ([id number]) 11/30/19 KEMI (PHARMACIST)DENITA During your visit today, we recorded the following informati on about you: Cindi Pichardo RN 11/30/2019 12:55 PM Signed Patient wanted Pharmacist Denita aware that his mail cam e today and he did not receive the Basaglar insulin from [employer] in the mail yesterday or today. He was told to call Denita if did not receive insulin. Please review and advise. DRAGAN Valdez, Pharmacist 12/01/2019 3:54 PM Signed Returned call to patient. Pt 's answers phone to state that insulin package was received today. Denita Thorpe, PharmD, BCACP Primary Care Clinical Pharmacist Oziel [facility] Allergies As of Date: 11/30/2019 Noted Allergy Reaction MORPHINE 02/28/2005 ROCEPHIN (CEFTRIAXONE SODIUM) 06/20/2014 14 - Other: See Com ments Comments: Hot flashes; redness to skin Date Reviewed: 10/27/2019 Reviewed by: [place] ([facility]) JAZZY Carpenter - Fully Assessed Reason for Visit: insulin did not arrive [Other] Prescriptions as of 11/30/2019 Sig: NORTRIPTYLINE 25 MG CAPSULE Take 1 capsule by mouth daily* INSULIN U-100 REGULAR HUMAN 1* Inject 15 units Subcutaneousl * X GABAPENTIN 300 MG CAPSULE Take 3 capsules by mouth thre* ROPINIROLE 0.5 MG TABLET Take 1 tablet by mouth daily * INSULIN NPH ISOPHANE U-100 HU* 32 units subcutaneous before * LATANOPROST 0.005 % EYE DROPS Use 1 Drop in both eyes three* COLESTIPOL 1 GRAM TABLET Take 1 g by mouth twice daily. CARVEDILOL 3.125 MG TABLET Take 2 tablets by mouth twice* CHOLECALCIFEROL (VITAMIN D3) * Take 1 capsule by mouth once * WARFARIN 3 MG TABLET 3 mg every Mon, Wed, Fri; 6 m* CLOPIDOGREL 75 MG TABLET Take 1 tablet by mouth once d* INSULIN SYRINGE U-100 WITH NE* 1 Each five times daily. LISINOPRIL 20 MG TABLET Take 1 tablet by mouth once d* FUROSEMIDE 40 MG TABLET Take 1 tablet by mouth twice * BIPAP Initiate BiPAP @ 24/18 cm of * FLASH GLUCOSE SENSOR KIT 1 Each four times daily. BACK BRACE 1 Device once daily as needed* AMIODARONE 200 MG TABLET Take 1 tablet by mouth once d* SPIRONOLACTONE 25 MG TABLET Take 1 tablet by mouth once d* ISOSORBIDE MONONITRATE ER 30 * Take 60 mg by mouth once ajay * BLOOD SUGAR DIAGNOSTIC STRIPS Use as instructed to check bl* RANOLAZINE ER 1,000 MG TABLET* Take 1 tablet by mouth twice * FENOFIBRATE NANOCRYSTALLIZED * Take 1 tablet by mouth once d * PANTOPRAZOLE 40 MG TABLET,DEL* Take 40 mg by mouth once ajay * LANCETS Use with Onetouch Glucometer * ASPIRIN 81 MG TABLET Take 1 tablet by mouth once d* CRESTOR 40 MG TABLET Take one(1) tablet daily. 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*09/16/2007 Type 2 diabetes mellitus, uncontrolled (HCC) [E*02/16/2008 1 04/21/2014 ESOPHAGEAL REFLUX [K21.9] 03/06/2008 Benign Neoplasm of Colon [D12.6] 02/21/2009 Labyrinthitis [H83.09] 02/05/2010 06/07/2014 Dermatophytosis of nail [B35.1] 06/05/2011 Atrial fibrillation [I48.91] 07/03/2011 Anticoagulated on Coumadin [Z79.01] 07/03/2011 Chronic diarrhea [K52.9] 09/16/2011 06/07/2014 Class 2 severe obesity due to excess calories w*09/16/2011 Stasis dermatitis of both legs [I87.2] 04/05/2013 Foot callus [L84] 10/04/2014 Subsequent non-ST elevation (NSTEMI) myocardial*12/25/2014 Syncope [R55] 02/19/2015 Hyperlipidemia LDL goal <100 [E78.5] 02/19/2015 ASHD (arteriosclerotic heart disease) [I25.10] 02/19/2015 Neurocardiogenic syncope [R55] 03/01/2015 Dysphagia [R13.10] 03/01/2015 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 Balanitis [N48.1] 11/16/2016 Coronary angioplasty status [Z98.61] 11/16/2016 Elevated troponin I level [R79.89] 01/29/2013 More... Family history of cerebrovascular accident (CVA*01/26/2018 History of deep venous thrombosis [Z86.718] 01/26/2018 History of non-ST elevation myocardial infarcti*01/26/2018 Ischemic cardiomyopathy [I25.5] 11/20/2017 Leukocytosis [D72.829] 01/29/2013 More... JESSICA (obstructive sleep apnea) [G47.33] 07/26/2018 RLS (restless legs syndrome) [G25.81] 07/28/2018 Localized swelling, mass and lump, neck [R22.1] 07/28/2018 Acute on chronic systolic congestive heart fail*12/17/2018 Encounter Status:Closed by KEMI (PHARMACIST)DENITA on elban on 2019-11-23 CNPN Telephone (PHAMTE) Normal 11-23-2019 [facility] LOVELY DEVI ([id number]) 1945 M [facility] Time Provider Department ([id number]) 11/23/19 BLOSSOM (PHARMACIST)BRIJESH During your visit today, we recorded the following informati on about you: ANSHUL SEBASTIAN 11/23/2019 8:56 AM Signed [facility] Referring provider: No ref. provider found Lovely Devi is a 74 year old year old male patient being evaluated today for anticoagulation Telemanagement visit. Patient is currently on the following anticoagulant Warfarin Labs PT INR (no units) Date Value 11/26/2018 Test sent to [facility]. 10/16/2017 1.8 01/16/2017 Test sent to [facility]. INR (POCT) (no units) Date Value 02/21/2019 2.9 01/24/2019 2.9 01/17/2019 3.2 INR Home CoaguChek (no units) Date Value 11/23/2019 1.7 11/09/2019 2.7 10/26/2019 2.8 Hemoglobin (g/dL) Date Value 01/14/2019 12.0 Hematocrit (%) Date Value 01/14/2019 37.9 Platelet Count (k/uL) Date Value 01/14/2019 154 Creatinine (mg/dL) Date Value 10/14/2019 1.30 04/21/2019 1.35 01/14/2019 1.24 Bilirubin, Total (mg/dL) Date Value 10/14/2019 0.4 ALT (U/L) Date Value 10/14/2019 26 AST (U/L) Date Value 10/14/2019 23 CrCl cannot be calculated (Unknown ideal weight.). ALLERGIES Allergen Reactions - Morphine - Rocephin [Ceftriaxo* Other: See Comments Hot flashes; redness to skin Indication for Warfarin: Paroxysmal atrial fibrillation (hcc ) Anticoagulated on coumadin Goal INR Range: 2-3 Assessment: INR result of 1.7 is subtherapeutic. Plan: ? Advised patient to take 6m g today ( a higher dose ) then continue his current dose amount. ? Next point of care INR check scheduled on 12/07/2019 ? LVMX for pt to call with questions or concerns. JOLEEN CERRATO, PHARMACIST Clinical Pharmacist, Pharmacy [facility]tico[facility] Pharmacy Anticoagulation Clinic Pager: [phone] Description Patient has 3 mg tablets of warfarin. Patient takes in the m orning. . Allergies As of Date: 11/23/2019 Noted Allergy Reaction MORPHINE 02/28/2005 ROCEPHIN (CEFTRIAXONE SODIUM) 06/20/2014 14 - Other: See Com ments Comments: Hot flashes; redness to skin Date Reviewed: 10/27/2019 Reviewed by: [place] ([facility]) JAZZY Carpenter - Fully Assessed Reason for Visit: Anticoagulation Telephone Fu [[id number]] Cmt: Home INR result Primary Visit Diagnosis:Anticoagulated on Coumadin [Z79.01] Other Visit Diagnosis:Paroxysmal atrial fibrillation (HCC) [ I48.0] Prescriptions as of 11/23/2019 Sig: NORTRIPTYLINE 25 MG CAPSULE Take 1 capsule by mouth daily* INSULIN U-100 REGULAR HUMAN 1* Inject 15 units Subcutaneousl * GABAPENTIN 300 MG CAPSULE Take 3 capsules by mouth thre* ROPINIROLE 0.5 MG TABLET Take 1 tablet by mouth daily * INSULIN NPH ISOPHANE U-100 HU* 32 units subcutaneous before * LATANOPROST 0.005 % EYE DROPS Use 1 Drop in both eyes three* COLESTIPOL 1 GRAM TABLET Take 1 g by mouth twice daily. CARVEDILOL 3.125 MG TABLET Take 2 tablets by mouth twice* CHOLECALCIFEROL (VITAMIN D3) * Take 1 capsule by mouth once * WARFARIN 3 MG TABLET 3 mg every Mon, Wed, Fri; 6 m* CLOPIDOGREL 75 MG TABLET Take 1 tablet by mouth once d* INSULIN SYRINGE U-100 WITH NE* 1 Each five times daily. LISINOPRIL 20 MG TABLET Take 1 tablet by mouth once d* FUROSEMIDE 40 MG TABLET Take 1 tablet by mouth twice * BIPAP Initiate BiPAP @ 24/18 cm of * FLASH GLUCOSE SENSOR KIT 1 Each four times daily. BACK BRACE 1 Device once daily as needed* AMIODARONE 200 MG TABLET Take 1 tablet by mouth once d* SPIRONOLACTONE 25 MG TABLET Take 1 tablet by mouth once d* ISOSORBIDE MONONITRATE ER 30 * Take 60 mg by mouth once ajay * BLOOD SUGAR DIAGNOSTIC STRIPS Use as instructed to check bl* RANOLAZINE ER 1,000 MG TABLET* Take 1 tablet by mouth twice * FENOFIBRATE NANOCRYSTALLIZED * Take 1 tablet by mouth once d * PANTOPRAZOLE 40 MG TABLET,DEL* Take 40 mg by mouth once ajay * LANCETS Use with [employer] Glucometer * ASPIRIN 81 MG TABLET Take 1 tablet by mouth once d* CRESTOR 40 MG TABLET Take one(1) tablet daily. 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.6] 02/21/2009 Labyrinthitis [H83.09] 02/05/2010 06/07/2014 Dermatophytosis of nail [B35.1] 06/05/2011 Atrial fibrillation [I48.91] 07/03/2011 Anticoagulated on Coumadin [Z79.01] 07/03/2011 Chronic diarrhea [K52.9] 09/16/2011 06/07/2014 Class 2 severe obesity due to excess calories w*09/16/2011 Stasis dermatitis of both legs [I87.2] 04/05/2013 Foot callus [L84] 10/04/2014 Subsequent non-ST elevation (NSTEMI) myocardial*12/25/2014 Syncope [R55] 02/19/2015 Hyperlipidemia LDL goal <100 [E78.5] 02/19/2015 ASHD (arteriosclerotic heart disease) [I25.10] 02/19/2015 Neurocardiogenic syncope [R55] 03/01/2015 Dysphagia [R13.10] 03/01/2015 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 Balanitis [N48.1] 11/16/2016 Coronary angioplasty status [Z98.61] 11/16/2016 Elevated troponin I level [R79.89] 01/29/2013 More... Family history of cerebrovascular accident (CVA*01/26/2018 History of deep venous thrombosis [Z86.718] 01/26/2018 History of non-ST elevation myocardial infarcti*01/26/2018 Ischemic cardiomyopathy [I25.5] 11/20/2017 Leukocytosis [D72.829] 01/29/2013 More... JESSICA (obstructive sleep apnea) [G47.33] 07/26/2018 RLS (restless legs syndrome) [G25.81] 07/28/2018 Localized swelling, mass and lump, neck [R22.1] 07/28/2018 Acute on chronic systolic congestive heart fail*12/17/2018 Encounter Status:Closed by BLOSSOM (PHARMACIST)JOLEEN on CNPN Telephone (PHMEWO) Normal 11-23-2019 [place] [facility] LOVELY DEVI ([id number]) 1945 M [place] Date Time Provider Department ([id number]) 11/23/19 KEMI (PHARMACIST)DENITA During your visit today, we recorded the following informati on about you: Ronen Avery LPN 11/23/2019 10:37 AM Signed Pt calls to state he would like to let Denita know that he received his Humalog quick pens but has not received his Humulin quick pens yet. Ronen Thorpe Pharmacist 11/23/2019 1:32 PM Signed Orders for both Humalog and Basaglar (to replace Humul in) were sent to [facility] on 10/23. Attempted to call [facility] to flakita nathan, unable to reach bank representative. Was able to leave voicemail on prescriber line asking for call or fax back to me with indication regarding if they need further clarification for Basaglar. Called and spoke with pt, he confirms receiving Humalog (#25 pens) but no Basaglar. Advised him I would let him know once we get information or he can also attempt to call the number on the box to see if able to get an update. Denita Thorpe PharmD, BCACP Primary Care Clinical Pharmacist [facility] Denita Thorpe Pharmacist 11/28/2019 4:55 PM Signed Called and spoke with [employer], they confirm that Basa glar is ready for delivery. Will arrive tomorrow. Called and spoke with pt's , Ila aleman re someone over the age of 18 is home to sign for package. She verbalized understanding. Denita Thorpe PharmD, BCACP Primary Care Clinical Pharmacist [facility] Allergies As of Date: 11/23/2019 Noted Allergy Reaction MORPHINE 02/28/2005 ROCEPHIN (CEFTRIAXONE SODIUM) 06/20/2014 14 - Other: See Com ments Comments: Hot flashes; redness to skin Date Reviewed: 10/27/2019 Reviewed by: [place] ([facility]) JAZZY Carpenter - Fully Assessed Reason for Visit: Medication Update [[id number]] Prescriptions as of 11/23/2019 Sig: NORTRIPTYLINE 25 MG CAPSULE Take 1 capsule by mouth daily* INSULIN U-100 REGULAR HUMAN 1* Inject 15 units Subcutaneousl * GABAPENTIN 300 MG CAPSULE Take 3 capsules by mouth thre* ROPINIROLE 0.5 MG TABLET Take 1 tablet by mouth daily * INSULIN NPH ISOPHANE U-100 HU* 32 units subcutaneous before * LATANOPROST 0.005 % EYE DROPS Use 1 Drop in both eyes three* COLESTIPOL 1 GRAM TABLET Take 1 g by mouth twice daily. CARVEDILOL 3.125 MG TABLET Take 2 tablets by mouth twice* CHOLECALCIFEROL (VITAMIN D3) * Take 1 capsule by mouth once * WARFARIN 3 MG TABLET 3 mg every Mon, Wed, Fri; 6 m* CLOPIDOGREL 75 MG TABLET Take 1 tablet by mouth once d* INSULIN SYRINGE U-100 WITH NE* 1 Each five times daily. LISINOPRIL 20 MG TABLET Take 1 tablet by mouth once d* FUROSEMIDE 40 MG TABLET Take 1 tablet by mouth twice * BIPAP Initiate BiPAP @ 24/18 cm of * FLASH GLUCOSE SENSOR KIT 1 Each four times daily. BACK BRACE 1 Device once daily as needed* AMIODARONE 200 MG TABLET Take 1 tablet by mouth once d* SPIRONOLACTONE 25 MG TABLET Take 1 tablet by mouth once d* ISOSORBIDE MONONITRATE ER 30 * Take 60 mg by mouth once ajay * BLOOD SUGAR DIAGNOSTIC STRIPS Use as instructed to check bl* RANOLAZINE ER 1,000 MG TABLET* Take 1 tablet by mouth twice * FENOFIBRATE NANOCRYSTALLIZED * Take 1 tablet by mouth once d * PANTOPRAZOLE 40 MG TABLET,DEL* Take 40 mg by mouth once ajay * LANCETS Use with On[employer]ouch Glucometer * ASPIRIN 81 MG TABLET Take 1 tablet by mouth once d* CRESTOR 40 MG TABLET Take one(1) tablet daily. 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.6] 02/21/2009 Labyrinthitis [H83.09] 02/05/2010 06/07/2014 Dermatophytosis of nail [B35.1] 06/05/2011 Atrial fibrillation [I48.91] 07/03/2011 Anticoagulated on Coumadin [Z79.01] 07/03/2011 Chronic diarrhea [K52.9] 09/16/2011 06/07/2014 Class 2 severe obesity due to excess calories w*09/16/2011 Stasis dermatitis of both legs [I87.2] 04/05/2013 Foot callus [L84] 10/04/2014 Subsequent non-ST elevation (NSTEMI) myocardial*12/25/2014 Syncope [R55] 02/19/2015 Hyperlipidemia LDL goal <100 [E78.5] 02/19/2015 ASHD (arteriosclerotic heart disease) [I25.10] 02/19/2015 Neurocardiogenic syncope [R55] 03/01/2015 Dysphagia [R13.10] 03/01/2015 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 Balanitis [N48.1] 11/16/2016 Coronary angioplasty status [Z98.61] 11/16/2016 Elevated troponin I level [R79.89] 01/29/2013 More... Family history of cerebrovascular accident (CVA*01/26/2018 History of deep venous thrombosis [Z86.718] 01/26/2018 History of non-ST elevation myocardial infarcti*01/26/2018 Ischemic cardiomyopathy [I25.5] 11/20/2017 Leukocytosis [D72.829] 01/29/2013 More... JESSICA (obstructive sleep apnea) [G47.33] 07/26/2018 RLS (restless legs syndrome) [G25.81] 07/28/2018 Localized swelling, mass and lump, neck [R22.1] 07/28/2018 Acute on chronic systolic congestive heart fail*12/17/2018 Encounter Status:Closed by KEMI (PHARMACIST)DENITA on No panel information on 2019-11-23 INR Coag (BldC) [Relative 1.7 2.0 - 3.0 Abnormal - [facility] ([id number]) time] progress on 2019-10 PROGRESS HNO ID: [id number] Normal 11-21-2019 [place] Author: Denita Thorpe (Pharmacist) Clinic Service: ? [place] Author Type: Pharmacist ([id number]) Type: Progress Notes Filed: 12/05/2019 9:55 PM Note Text: TELEPHONIC APPOINTMENT [place] law requires the collaborative practice agreement to be initiated by a physician in order to provide medication titration. Thus, pharmacy will only provide medication recommendations and counseling today , unless recommendations are approved verbally by the consulting prov ider. ? REASON FOR CONSULT: DM GOALS: A1c <?8% (PCP prefers <7.5%) CONSULTING PROVIDER:?ELBA?Deniz Garsia??? Date of Consult:?09/16/2019 ? Lovely Devi is a 73 year old male was last seen b y PCP, Dr. Morgan Valdez, III on?10/27/2019.? ? Subjective: Patient is CALLED today for Follow Up pharmacotherapy manage ment appointment for diabetes. At 09/15 ROLL TESTER?appt,?insulin NPH dose decreased pt was consulted to pharmacy due to increased hypoglycemia.?At last ROLL TESTER visit gabapentin was initiated and empiric treatment for UTI was s tarted with nitrofurantoin monohydrate. At PharmD visit on , ins ulin lispro dose was decreased and patient was recommended to pursue bas al/bolus insulin pens through [employer] patient assistance. At last PCP appt, no medication changes made but patient was encouraged to watch carbohydrates in diet and exercise regularly. At last pharmacy follow up o n 11/04/2019, insulin R doses decreased due to hypoglycemia. INTERIM HISTORY: Feeling well, reports much fewer incidences of hypoglycemia, utilizing sliding scale that's helping improve BG. Last 7 day average on CGM: 145 mg/dL Above: 59 In target: 40% Below: 1% Last 14 day average on CGM: 158 mg/dL Awaiting approval of Edilia Cares insulin through PAP, Humnydia cano and Basaglar. Current DM Medications: Insulin Regular 15 units three times daily with meals Insulin NPH 32?units twice daily Preventative Medications: ? On NIYA/ARB:?Yes ? On Statin:?Yes ? On ASA:?Yes ? ROS: ? Patient?denies?CP, SOB, FAITH, blurred vision, dizziness or l ightheadedness ? Patient?denies?symptoms of hypoglycemia (sweating, anxiety , palpitations, hunger, and tremor) ? Patient?denies?symptoms of hyperglycemia (polyuria, polydi psia, polyphagia) ? Patient?denies?potential medication adverse effects ? MEDICATIONS: ? Pill bottles?are not?present. ? Adherence:?denies?missed doses. ? Pharmacy:?[facility] ? Rx coverage:?Medicare ? Affordability:?Gutierrez of brand name insulins is costly on i nsurance, on Relion brand insulin vials ? Diabetes supplies:?Freestyle Anitra ? 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 Esophageal Reflux Benign Neoplasm of Colon Dermatophytosis of Nail Atrial Fibrillation (Hcc) Anticoagulated On Coumadin Class 2 Severe Obesity Due to Excess Calories With Serious C omorbidity and Body Mass Index (Bmi) of 38.0 to 38.9 in Adult ([facility]) Stasis Dermatitis of Both Legs Foot Callus Subsequent Non-St Elevation (Nstemi) Myocardial Infarction W ithin 4 Weeks of Initial Infarction ([facility]) Syncope Hyperlipidemia Ldl Goal <100 Ashd (Arteriosclerotic Heart Disease) Neurocardiogenic Syncope 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 , With Long-Term Current Use of Insulin (Hcc) Facet Arthritis of Lumbar Region Adenopathy Atrial Flutter (Hcc) Balanitis Coronary Angioplasty Status Elevated Troponin I Level Family History of Cerebrovascular Accident (Cva) History of Deep Venous Thrombosis History of Non-St Elevation Myocardial Infarction (Nstemi) Ischemic Cardiomyopathy Leukocytosis Jessica (Obstructive Sleep Apnea) Rls (Restless Legs Syndrome) Localized Swelling, Mass and Lump, Neck Acute On Chronic Systolic Congestive Heart Failure (Hcc) PAST MEDICAL HISTORY Diagnosis Date - ASHD (arteriosclerotic heart disease) 02/19/2015 - Atrial fibrillation (HCC) 07/03/2011 - Automatic implantable cardiac defibrillator in situ - Petit's esophagus with esophagitis 03/01/2015 - Benign neoplasm of colon - Chronic diarrhea 09/16/2011 - Coronary atherosclerosis of unspecified type of vessel, na tive or graft s/p PR in 1985 - Diverticulosis of colon (without mention of hemorrhage) - Duodenitis without mention of hemorrhage - Dysphagia 03/01/2015 - Facet arthritis of lumbar region 07/14/2017 - GERD (gastroesophageal reflux disease) 06/10/12 - Heart attack (HCC) - Labyrinthitis 02/05/2010 - Neurocardiogenic syncope 03/01/2015 - Obesity 09/16/2011 - JESSICA treated with BiPAP DME [employer] - Other and unspecified hyperlipidemia - Other specified forms of chronic ischemic heart disease - Paroxysmal ventricular tachycardia (HCC) - Snoring - Stroke ([facility]) - Tinea of nail 01/13/2011 - Type 2 diabetes mellitus with stage 3 chronic kidney disea se, with long-term current use of insulin ([facility]) 06/15/2017 - Unspecified essential hypertension ALLERGIES Allergen Reactions - Morphine - Rocephin [Ceftriaxo* Other: See Comments Hot flashes; redness to skin Current Outpatient Medications Medication Sig Dispense Refill - nortriptyline (PAMELOR) 25 mg capsule Take 1 capsule by mo uth daily at bedtime. 30 capsule 5 - insulin regular human (NOVOLIN R REGULAR U-100 INSULN) 100 unit/mL injection Inject 15 units Subcutaneously three times daily b efore meals + sliding scale as directed ( 1 unit for every 50 mg/dL above 150 mg/dL) - gabapentin (NEURONTIN) 300 mg capsule Take 3 capsules by m outh three times daily for 30 days. 270 capsule 0 - rOPINIRole (REQUIP) 0.5 mg tablet Take 1 tablet by mouth d aily at bedtime. 90 tablet 3 - insulin NPH injection (HumuLIN N,NovoLIN N) 32 units subcu taneous before breakfast and 32 units at bedtime - latanoprost (XALATAN) 0.005 % ophthalmic solution Use 1 Dr op in both eyes three times daily. - colestipol (COLESTID) 1 gram tablet Take 1 g by mouth twic e daily. - carvedilol (COREG) 3.125 mg tablet Take 2 tablets by mouth twice daily. for one week starting on 06/20/16 then will be taking 6.25 x 2 daily . 0 - Cholecalciferol, Vitamin D3, 50 mcg (2,000 unit) cap Take 1 capsule by mouth once daily. - warfarin (COUMADIN) 3 mg tablet 3 mg every Mon, Wed, Fri; 6 mg all other days 150 tablet 3 - clopidogrel (PLAVIX) 75 mg tablet Take 1 tablet by mouth o nce daily. 90 tablet 3 - Insulin Syringe-Needle U-100 (BD ULTRAFINE INSULIN) 1 mL 3 1 gauge x 5/16 1 Each five times daily. 450 Each 3 - lisinopril (ZESTRIL, PRINIVIL) 20 mg tablet Take 1 tablet by mouth once daily. 90 tablet 1 - furosemide (LASIX) 40 mg tablet Take 1 tablet by mouth twi ce daily. 60 tablet 11 - BIPAP Initiate BiPAP @ 24/18 cm of water with humidificati on. Mask (per patient preference), chin strap, filters, tubing / heated tu jin, heated humidity and lifetime supplies. Dx. JESSICA G47.33 327.12 - fax compliance download to [phone] 1 Device 0 - flash glucose sensor (FREESTYLE ANITRA 14 DAY SENSOR) kit 1 Each four times daily. 1 Kit 11 - Back Brace misc 1 Device once daily as needed. size large 1 Each 0 - amiodarone (PACERONE) 200 mg tablet Take 1 tablet by mouth once daily. - spironolactone (ALDACTONE) 25 mg tablet Take 1 tablet by m outh once daily. - isosorbide mononitrate ER (IMDUR) 30 mg 24 hr tablet Take 60 mg by mouth once daily. 0 - blood sugar diagnostic ([employer] BLOOD GLUCOSE SYSTEM) test strip Use as instructed to check blood sugar 3 to 4 times daily DM: yes I nsulin: yes DX:11.9 400 Strip 3 - ranolazine SR (RANEXA) 1,000 mg Tb12 Take 1 tablet by mout h twice daily. - fenofibrate nanocrystallized (TRICOR) 145 mg tablet Take 1 tablet by mouth once daily. 0 - pantoprazole DR (PROTONIX) 40 mg tablet Take 40 mg by mout h once daily. - Lancets (ONE TOUCH ULTRASOFT LANCETS) lancets Use with One touch Glucometer as directed 100 Each 3 - Aspirin 81 mg ORAL Tab Take 1 tablet by mouth once daily. Take with food. 30 tablet 11 - CRESTOR 40 MG TAB Take one(1) tablet daily. 0 - NITROGLYCERIN 0.3 MG SUBLINGUAL TAB Dissolve 0.4 mg under the tongue. Usual dose for angina is 1 tablet every 5 minutes for maximu m of 3 doses in 15 minutes. 0 No current facility-administered medications for this visit. Objective: Last 3 Encounter BP Readings: Date: BP: 10/27/2019 119/72 10/06/2019 128/70 09/16/2019 122/70 Wt: 120.7 kg (266 lb) BMI: 40.45 kg/(m2) LABS Lab Results Component Value Date HBA1C 7.6 10/14/2019 HBA1C 6.8 04/21/2019 HBA1C 7.3 01/14/2019 CMP: Glucose 197 10/14/2019 BUN 27 10/14/2019 Creatinine 1.30 10/14/2019 Sodium 135 10/14/2019 Potassium 4.6 10/14/2019 Chloride 101 10/14/2019 CO2 24 10/14/2019 Protein, Total 6.0 10/14/2019 Albumin 4.1 10/14/2019 Calcium 9.0 10/14/2019 Alkaline Phosphatase 55 10/14/2019 Bilirubin, Total 0.4 10/14/2019 AST 23 10/14/2019 ALT 26 10/14/2019 eGFR = 54 mL/min/1.73m2 Vitamin B12 Date Value Ref Range Status 12/17/2018 384 232 - 1,245 pg/mL Final Lab Results Component Value Date CHOL 123 10/14/2019 LDL 53 10/14/2019 HDL 35 10/14/2019 TG 177 10/14/2019 Albumin/Creat Ratio (mg/g) Date Value 10/14/2019 Not calculated PHARMACOTHERAPY ASSESSMENT/PLAN: 1. Type 2 diabetes mellitus with stage 3 chronic kidney dise ase, with long-term current use of insulin (HCC) - ICD9: 250.40, 585.3 , V58.67, ICD10: E11.22, N18.3, Z79.4 A1c goal <?8% (PCP prefers 7.5%);?not at goal?(last A1c 7.6% ); SMBG?at goal?on current regimen with decreased incidences of s/sx hy poglycemia. He has h/o hypoglycemia unawareness with BG in the 50s but repo rts no longer experiencing BG and CGM shows hypoglycemia decreased to 1%. No medication changes recommended today. Awaiting approval of new basal/tony larry insulin pens from PAP.?Renal function and LFTs appropriate for royal nued use. [place] law requires the collaborative practice agreement to be initiated by a physician in order to provide medication titration. Thus, pharmacy will only provide medication recommendations and counseling today , unless recommendations are approved verbally by the consulting prov ider. ? Recommend to continue insulin R to 15 units before meals t hree times daily plus sliding scale? Add 0 units if Blood Sugar is between 70-150 Add 1 units if Blood Sugar is between 151-200 Add 2 units if Blood Sugar is between 201-250 Add 3 units if Blood Sugar is between 251-300 Add 4 units if Blood Sugar is between 301-350 Add 5 units if Blood Sugar is between 351-400 BS > 400 , call your physician ? Recommend to continue insulin NPH 32 units twice daily? ? Awaiting approval for switching to Basaglar and Humalog th rough [employer] patient assistance, will replace current insulins. ? ACEi/ARB for renal protection:?yes, Scr and K+ ok to royal nue ? HbA1c: 01/14/2020 Patient is not scheduled to see PCP. Patient to follow up with PharmD, pt to call me by end with update on if approved by PAP. Patient verbalized understanding of instructions. Denita Thorpe, Abner, BCACP Primary Care Clinical Pharmacist [facility] cnov on 2019-11-21 CNOV Office Visit (PHMEWO) Normal 11-21-[address] [place] [address] Clinic LOVELY DEVI ([id number]) 1945 [place] Date Time Provider Department ([id number]) 11/21/19 3:30 PM KEMI (PHARMACIST)DENITA During your visit today, we recorded the following informati on about you: Anshul Hancock 12/05/2019 9:55 PM Signed TELEPHONIC APPOINTMENT [place] law requires the collaborative practice agreement to be initiated by a physician in order to provide medication titration. Th us, pharmacy will only provide medication recommend ations and counseling today, unless recommendations are approved verbally by the consulting provider. ? REASON FOR CONSULT: DM GOALS: A1c <?8% (PCP prefers <7.5%) CONSULTING PROVIDER:?ELBA?Deniz Garsia??? Date of Consult:?09/16/2019 ? Lovely Devi is a 73 year old male was last seen by PCP, Dr. Morgan Valdez, FEDERICO SIMMONS on?10/27/2019.? ? Subjective: Patient is CALLED today for Follow Up pharmacotherapy management appointment for diabetes. At 09/15 ROLL TESTER?appt,?insulin NPH dose decreased pt was consulted to pharmacy due to increased hypoglycemia.?At last ROLL TESTER visit ga bapentin was initiated and empiric treatment for UTI was started with nit rofurantoin monohydrate. At PharmD visit on , insulin lispro dose was decreased and patient was recommended to pursue basal/ bolus insulin pens through [facility] patient assistance. At last PCP appt, no medication ch anges made but patient was encouraged to watch carbohydrates in diet an d exercise regularly. At last pharmacy follow up on 11/04/2019, insulin R doses decreased due to hypoglycemia. INTERIM HISTORY: Feeling well, reports much fewer inciden yousif of hypoglycemia, utilizing sliding scale that's helping improve BG. Last 7 day average on CGM: 145 mg/dL Above: 59 In target: 40% Below: 1% Last 14 day average on CGM: 158 mg/dL Awaiting approval of [employer] insulin through PAP, Emili log and Basaglar. Current DM Medications: Insulin Regular 15 units three times daily with meals Insulin NPH 32?units twice daily Preventative Medications: ? On NIYA/ARB:?Yes ? On Statin:?Yes ? On ASA:?Yes ? ROS: ? Patient?denies?CP, SOB, FAITH, blurred vision, dizziness or l ightheadedness ? Patient?denies?symptoms of hypoglycemia (sweating, anxie ty, palpitations, hunger, and tremor) ? Patient?denies?symptoms of hyperglycemia (poly uria, polydipsia, polyphagia) ? Patient?denies?potential medication adverse effects ? MEDICATIONS: ? Pill bottles?are not?present. ? Adherence:?denies?missed doses. ? Pharmacy:?[facility] ? Rx coverage:?Medicare ? Affordability:?Gutierrez of br and name insulins is costly on insurance, on Relion brand insulin vials ? Diabetes supplies:?Freestyle Anitra ? 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 Esophageal Reflux Benign Neoplasm of Colon Dermatophytosis of Nail Atrial Fibrillation (Hcc) Anticoagulated On Coumadin Class 2 Severe Obesity Due t o Excess Calories With Serious Comorbidity and Body Mass Index (Bmi) of 38.0 to 38.9 in Adult (Hcc) Stasis Dermatitis of Both Legs Foot Callus Subsequent Non-St Elevation (Nstemi) Myocardial Infarc tion Within 4 Weeks of Initial Infarction (Hcc) Syncope Hyperlipidemia Ldl Goal <100 Ashd (Arteriosclerotic Heart Disease) Neurocardiogenic Syncope 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 With Stage 3 Chronic Kidney D isease, With Long-Term Current Use of Insulin (Hcc) Facet Arthritis of Lumbar Region Adenopathy Atrial Flutter (Hcc) Balanitis Coronary Angioplasty Status Elevated Troponin I Level Family History of Cerebrovascular Accident (Cva) History of Deep Venous Thrombosis History of Non-St Elevation Myocardial Infarction (Nstemi) Ischemic Cardiomyopathy Leukocytosis Jessica (Obstructive Sleep Apnea) Rls (Restless Legs Syndrome) Localized Swelling, Mass and Lump, Neck Acute On Chronic Systolic Congestive Heart Failure (Hcc) PAST MEDICAL HISTORY Diagnosis Date - ASHD (arteriosclerotic heart disease) 02/19/2015 - Atrial fibrillation (HCC) 07/03/2011 - Automatic implantable cardiac defibrillator in situ - Petit's esophagus with esophagitis 03/01/2015 - Benign neoplasm of colon - Chronic diarrhea 09/16/2011 - Coronary atherosclerosis of unspecified type of vessel, na tive or graft s/p PR in 1985 - Diverticulosis of colon (without mention of hemorrhage) - Duodenitis without mention of hemorrhage - Dysphagia 03/01/2015 - Facet arthritis of lumbar region 07/14/2017 - GERD (gastroesophageal reflux disease) 06/10/12 - Heart attack (HCC) - Labyrinthitis 02/05/2010 - Neurocardiogenic syncope 03/01/2015 - Obesity 09/16/2011 - JESSICA treated with BiPAP DME [employer] - Other and unspecified hyperlipidemia - Other specified forms of chronic ischemic heart disease - Paroxysmal ventricular tachycardia (HCC) - Snoring - Stroke (HCC) - Tinea of nail 01/13/2011 - Type 2 diabetes mellitus with st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, with long-term current use of insulin ([facility]) 06/15/2017 - Unspecified essential hypertension ALLERGIES Allergen Reactions - Morphine - Rocephin [Ceftriaxo* Other: See Comments Hot flashes; redness to skin Current Outpatient Medications Medication Sig Dispense Refill - nortriptyline (PAMELOR) 25 mg capsule Take 1 capsule by mo uth daily at bedtime. 30 capsule 5 - insulin regular human (NOVOLIN R REGUL AR U-100 INSULN) 100 unit/mL injection Inject 15 units Subcutaneously three times daily before meals + sliding scale as directed ( 1 unit for every 50 mg/dL above 150 mg/dL) - gabapentin (NEURONTIN) 300 mg capsule Take 3 capsule s by mouth three times daily for 30 days. 270 capsule 0 - rOPINIRole (REQUIP) 0.5 mg tablet Take 1 tablet by mouth daily at bedtime. 90 tablet 3 - insulin NPH injection (HumuLIN N,NovoLIN N) 32 units subcu taneous before breakfast and 32 units at bedtime - latanoprost (XALATAN) 0.005 % ophthalmic solution Use 1 Drop in both eyes three times daily. - colestipol (COLESTID) 1 gram tablet Take 1 g by mouth twic e daily. - carvedilol (COREG) 3.125 mg tablet Take 2 tabl ets by mouth twice daily. for one week starting on 06/20/16 then will be taking 6.25 x 2 da alisha . 0 - Cholecalciferol, Vitamin D3, 50 mcg (2 ,000 unit) cap Take 1 capsule by mouth once daily. - warfarin (COUMADIN) 3 mg t ablet 3 mg every Mon, Wed, Fri; 6 mg all other days 150 tablet 3 - clopidogrel (PLAVIX) 75 mg tablet Take 1 tablet by mouth o nce daily. 90 tablet 3 - Insulin Syringe-Needle U-100 (BD ULTRAFINE INSULIN) 1 mL 31 gauge x 5/16 1 Each five times daily. 450 Each 3 - lisinopril (ZESTRIL, PRINIVIL) 20 mg tablet Take 1 tablet by mouth once daily. 90 tablet 1 - furosemide (LASIX) 40 mg t ablet Take 1 tablet by mouth twice daily. 60 tablet 11 - BIPAP Initiate BiPAP @ 24/18 cm of water with humidificati on. Mask (per patient preference), chin strap, filters, tubing / heated tu jin, heated humidity and lifetime supplies. Dx. JESSICA G47.33 327.23 - fax compliance download to [phone] 1 Device 0 - flash glucose sensor (FREESTYLE ANITRA 14 DAY SENSOR) kit 1 Each four times daily. 1 Kit 11 - Back Brace misc 1 Device once daily as needed. size large 1 Each 0 - amiodarone (PACERONE) 200 mg tablet Take 1 tablet by mouth once daily. - spironolactone (ALDACTONE) 25 mg tablet Take 1 table t by mouth once daily. - isosorbide mononitrate ER (IMDUR) 30 mg 24 hr tablet Take 60 mg by mouth once daily. 0 - blood sugar diagnostic ([employer] BLOOD GLUCOSE SYSTEM) test strip Use as instructed to check blood ureña gar 3 to 4 times daily DM: yes Insulin: yes DX:11.9 400 Strip 3 - ranolazine SR (RANEXA) 1,000 mg Tb12 Take 1 tablet by mout h twice daily. - fenofibrate nanocrystallized (TRICOR) 145 mg tablet Take 1 tablet by mouth once daily. 0 - pantoprazole DR (PROTONIX) 40 mg tablet Take 40 mg by mout h once daily. - Lancets (ONE TOUCH ULTRASO FT LANCETS) lancets Use with [employer] Glucometer as directed 100 Each 3 - Aspirin 81 mg ORAL Tab Take 1 tablet b y mouth once daily. Take with food. 30 tablet 11 - CRESTOR 40 MG TAB Take one(1) tablet daily. 0 - NITROGLYCERIN 0.3 MG SUBLINGUAL TAB Dissolve 0 .4 mg under the tongue. Usual dose for angina is 1 tablet every 5 minutes for maximum of 3 doses in 15 minutes. 0 No current facility-administered medications for this visit. Objective: Last 3 Encounter BP Readings: Date: BP: 10/27/2019 119/72 10/06/2019 128/70 09/16/2019 122/70 Wt: 120.7 kg (266 lb) BMI: 40.45 kg/(m2) LABS Lab Results Component Value Date HBA1C 7.6 10/14/2019 HBA1C 6.8 04/21/2019 HBA1C 7.3 01/14/2019 CMP: Glucose 197 10/14/2019 BUN 27 10/14/2019 Creatinine 1.30 10/14/2019 Sodium 135 10/14/2019 Potassium 4.6 10/14/2019 Chloride 101 10/14/2019 CO2 24 10/14/2019 Protein, Total 6.0 10/14/2019 Albumin 4.1 10/14/2019 Calcium 9.0 10/14/2019 Alkaline Phosphatase 55 10/14/2019 Bilirubin, Total 0.4 10/14/2019 AST 23 10/14/2019 ALT 26 10/14/2019 eGFR = 54 mL/min/1.73m2 Vitamin B12 Date Value Ref Range Status 12/17/2018 384 232 - 1,245 pg/mL Final Lab Results Component Value Date CHOL 123 10/14/2019 LDL 53 10/14/2019 HDL 35 10/14/2019 TG 177 10/14/2019 Albumin/Creat Ratio (mg/g) Date Value 10/14/2019 Not calculated PHARMACOTHERAPY ASSESSMENT/PLAN: 1. Type 2 diabetes mellitus with st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, with long-term current use of insulin ([facility]) - ICD9: 250.40, 585.3, V58.67, ICD10: E11.22, N18.3, Z79.4 A1c goal <?8% (PCP prefers 7.5%);?not at goal?(last A1c 7.6%); SMBG?at goal?on current regimen with decreased incidences of s/sx hypoglycem ia. He has h/o hypoglycemia unawareness with BG in the 50s but reports no longer experiencing BG and CGM shows hypoglycemia decreased to 1%. No medication changes recommended today. Awaiting approval of new basal/bolus insu maribell pens from [facility].?Renal function and LFTs appropriate for continued use. [place] law requires the collaborative practice agreement to be initiated by a physician in order to provide medication titration. Th us, pharmacy will only provide medication recommend ations and counseling today, unless recommendations are approved verbally by the consulting provider. ? Recommend to continue insulin R to 15 units before m eals three times daily plus sliding scale? Add 0 units if Blood Sugar is between 70-150 Add 1 units if Blood Sugar is between 151-200 Add 2 units if Blood Sugar is between 201-250 Add 3 units if Blood Sugar is between 251-300 Add 4 units if Blood Sugar is between 301-350 Add 5 units if Blood Sugar is between 351-400 BS > 400 , call your physician ? Recommend to continue insulin NPH 32 units twice daily? ? Awaiting approval for switching to Basaglar an d Humalog through [facility] patient assistance, will replace current insulins. ? ACEi/ARB for renal protection:?yes, Scr and K+ ok to royal nue ? HbA1c: 01/14/2020 Patient is not scheduled to see PCP. Patient to follow up with PharmD, pt to call me by end of week with update on if approved by PAP. Patient verbalized understanding of instructions. Denita Thorpe, LisaD, BCACP Primary Care Clinical Pharmacist [facility] Referring Provider: DENIZ GARSIA [[id number]] Allergies As of Date: 11/21/2019 Noted Allergy Reaction MORPHINE 02/28/2005 ROCEPHIN (CEFTRIAXONE SODIUM) 06/20/2014 14 - Other: See Com ments Comments: Hot flashes; redness to skin Date Reviewed: 10/27/2019 Reviewed by: Linwood ([facility]) JAZZY Carpenter - Fully Assessed Reason for Visit: Allied Health Visit [5] Cmt: DM Primary Visit Diagnosis:Type 2 diabetes mellitus with st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, with long-term current use of insulin (HCC) [E11.22, N18.3, Z79.4] Prescriptions as of 11/21/2019 Sig: NORTRIPTYLINE 25 MG CAPSULE Take 1 capsule by mouth daily* INSULIN U-100 REGULAR HUMAN 1* Inject 15 units Subcutaneousl * GABAPENTIN 300 MG CAPSULE Take 3 capsules by mouth thre* ROPINIROLE 0.5 MG TABLET Take 1 tablet by mouth daily * INSULIN NPH ISOPHANE U-100 HU* 32 units subcutaneous before * LATANOPROST 0.005 % EYE DROPS Use 1 Drop in both eyes three* COLESTIPOL 1 GRAM TABLET Take 1 g by mouth twice daily. CARVEDILOL 3.125 MG TABLET Take 2 tablets by mouth twice* CHOLECALCIFEROL (VITAMIN D3) * Take 1 capsule by mouth once * WARFARIN 3 MG TABLET 3 mg every Mon, Wed, Fri; 6 m* CLOPIDOGREL 75 MG TABLET Take 1 tablet by mouth once d* INSULIN SYRINGE U-100 WITH NE* 1 Each five times daily. LISINOPRIL 20 MG TABLET Take 1 tablet by mouth once d* FUROSEMIDE 40 MG TABLET Take 1 tablet by mouth twice * BIPAP Initiate BiPAP @ 24/18 cm of * FLASH GLUCOSE SENSOR KIT 1 Each four times daily. BACK BRACE 1 Device once daily as needed* AMIODARONE 200 MG TABLET Take 1 tablet by mouth once d* SPIRONOLACTONE 25 MG TABLET Take 1 tablet by mouth once d* ISOSORBIDE MONONITRATE ER 30 * Take 60 mg by mouth once ajay * BLOOD SUGAR DIAGNOSTIC STRIPS Use as instructed to check bl* RANOLAZINE ER 1,000 MG TABLET* Take 1 tablet by mouth twice * FENOFIBRATE NANOCRYSTALLIZED * Take 1 tablet by mouth once d * PANTOPRAZOLE 40 MG TABLET,DEL* Take 40 mg by mouth once ajay * LANCETS Use with Onetouch Glucometer * ASPIRIN 81 MG TABLET Take 1 tablet by mouth once d* CRESTOR 40 MG TABLET Take one(1) tablet daily. NITROGLYCERIN 0.3 MG SUBLINGU* Dissolve 0.4 mg under the ton * Problem List As Of Date 11/21/2019 Noted Resolved CARDIOMEGALY [I51.7] Duodenitis without mention of hemorrhage [K29.8* 06/07/2014 Essential hypertension [I10] PAROX VENTRIC TACHYCARD [I47.2] Automatic implantable cardioverter-defibrillato* BPH with obstruction/lower urinary tract sympto*09/16/2007 Type 2 diabetes mellitus, uncontrolled (HCC) [E*02/16/2008 1 04/21/2014 ESOPHAGEAL REFLUX [K21.9] 03/06/2008 Benign Neoplasm of Colon [D12.6] 02/21/2009 Labyrinthitis [H83.09] 02/05/2010 06/07/2014 Dermatophytosis of nail [B35.1] 06/05/2011 Atrial fibrillation [I48.91] 07/03/2011 Anticoagulated on Coumadin [Z79.01] 07/03/2011 Chronic diarrhea [K52.9] 09/16/2011 06/07/2014 Class 2 severe obesity due to excess calories w*09/16/2011 Stasis dermatitis of both legs [I87.2] 04/05/2013 Foot callus [L84] 10/04/2014 Subsequent non-ST elevation (NSTEMI) myocardial*12/25/2014 Syncope [R55] 02/19/2015 Hyperlipidemia LDL goal <100 [E78.5] 02/19/2015 ASHD (arteriosclerotic heart disease) [I25.10] 02/19/2015 Neurocardiogenic syncope [R55] 03/01/2015 Dysphagia [R13.10] 03/01/2015 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 Balanitis [N48.1] 11/16/2016 Coronary angioplasty status [Z98.61] 11/16/2016 Elevated troponin I level [R79.89] 01/29/2013 More... Family history of cerebrovascular accident (CVA*01/26/2018 History of deep venous thrombosis [Z86.718] 01/26/2018 History of non-ST elevation myocardial infarcti*01/26/2018 Ischemic cardiomyopathy [I25.5] 11/20/2017 Leukocytosis [D72.829] 01/29/2013 More... JESSICA (obstructive sleep apnea) [G47.33] 07/26/2018 RLS (restless legs syndrome) [G25.81] 07/28/2018 Localized swelling, mass and lump, neck [R22.1] 07/28/2018 Acute on chronic systolic congestive heart fail*12/17/2018 Encounter Status:Closed by KEMI (PHARMACIST)DENITA on 1 yoandy on 2019-11-09 CNPN Telephone ([facility]) Normal 11-09-2019 [facility] LOVELY DEVI ([id number]) [address] [facility] Time Provider Department ([id number]) 11/09/19 BLOSSOM (PHARMACIST)BRIJESH During your visit today, we recorded the following informati on about you: ANSHUL SEBASTIAN 11/09/2019 9:42 AM Signed [facility] Referring provider: No ref. provider found Lovely Devi is a 74 year old year old male patient being evaluated today for anticoagulation Telemanagement visit. Patient is currently on the following anticoagulant Warfarin Labs INR Home CoaguChek (no units) Date Value 11/09/2019 2.7 10/26/2019 2.8 10/12/2019 2.2 Hemoglobin (g/dL) Date Value 01/14/2019 12.0 Hematocrit (%) Date Value 01/14/2019 37.9 Platelet Count (k/uL) Date Value 01/14/2019 154 Creatinine (mg/dL) Date Value 10/14/2019 1.30 04/21/2019 1.35 01/14/2019 1.24 Bilirubin, Total (mg/dL) Date Value 10/14/2019 0.4 ALT (U/L) Date Value 10/14/2019 26 AST (U/L) Date Value 10/14/2019 23 CrCl cannot be calculated (Unknown ideal weight.). ALLERGIES Allergen Reactions - Morphine - Rocephin [Ceftriaxo* Other: See Comments Hot flashes; redness to skin Indication for Warfarin: Paroxysmal atrial fibrillation (hcc ) Anticoagulated on coumadin Goal INR Range: 2-3 Assessment: ? INR result of 2.7 is therapeutic Plan: ? Advised patient to continue current weekly dose ? Next home INR check scheduled on 11/23/2019 LVMX for pt re: dosing and to call the PAC with concerns, questions, changes. JOLEEN CERRATO PHARMACIST Clinical Pharmacist, [facility] Pager: [phone] Description Patient has 3 mg tablets of warfarin. Patient takes in the m orning. . Allergies As of Date: 11/09/2019 Noted Allergy Reaction MORPHINE 02/28/2005 ROCEPHIN (CEFTRIAXONE SODIUM) 06/20/2014 14 - Other: See Com ments Comments: Hot flashes; redness to skin Date Reviewed: 10/27/2019 Reviewed by: Linwood ([facility]) JAZZY Carpenter - Fully Assessed Reason for Visit: Anticoagulation Telephone Fu [148] Cmt: Home INR result Primary Visit Diagnosis:Anticoagulated on Coumadin [Z79.01] Other Visit Diagnosis:Paroxysmal atrial fibrillation (HCC) [ I48.0] Prescriptions as of 11/09/2019 Sig: INSULIN U-100 REGULAR HUMAN 1* Inject 15 units Subcutaneousl * GABAPENTIN 300 MG CAPSULE Take 3 capsules by mouth thre* ROPINIROLE 0.5 MG TABLET Take 1 tablet by mouth daily * INSULIN NPH ISOPHANE U-100 HU* 32 units subcutaneous before * LATANOPROST 0.005 % EYE DROPS Use 1 Drop in both eyes three* COLESTIPOL 1 GRAM TABLET Take 1 g by mouth twice daily. CARVEDILOL 3.125 MG TABLET Take 2 tablets by mouth twice* CHOLECALCIFEROL (VITAMIN D3) * Take 1 capsule by mouth once * TRAZODONE 50 MG TABLET Take 2 tablets by mouth daily* WARFARIN 3 MG TABLET 3 mg every Mon, Wed, Fri; 6 m* CLOPIDOGREL 75 MG TABLET Take 1 tablet by mouth once d* INSULIN SYRINGE U-100 WITH NE* 1 Each five times daily. LISINOPRIL 20 MG TABLET Take 1 tablet by mouth once d* FUROSEMIDE 40 MG TABLET Take 1 tablet by mouth twice * BIPAP Initiate BiPAP @ 24/18 cm of * FLASH GLUCOSE SENSOR KIT 1 Each four times daily. BACK BRACE 1 Device once daily as needed* AMIODARONE 200 MG TABLET Take 1 tablet by mouth once d* SPIRONOLACTONE 25 MG TABLET Take 1 tablet by mouth once d* ISOSORBIDE MONONITRATE ER 30 * Take 60 mg by mouth once ajay * BLOOD SUGAR DIAGNOSTIC STRIPS Use as instructed to check bl* RANOLAZINE ER 1,000 MG TABLET* Take 1 tablet by mouth twice * FENOFIBRATE NANOCRYSTALLIZED * Take 1 tablet by mouth once d * PANTOPRAZOLE 40 MG TABLET,DEL* Take 40 mg by mouth once ajay * LANCETS Use with Onetouch Glucometer * ASPIRIN 81 MG TABLET Take 1 tablet by mouth once d* CRESTOR 40 MG TABLET Take one(1) tablet daily. NITROGLYCERIN 0.3 MG SUBLINGU* Dissolve 0.4 mg under the ton * Problem List As Of Date 11/09/2019 Noted Resolved CARDIOMEGALY [I51.7] Duodenitis without mention of hemorrhage [K29.8* 06/07/2014 Essential hypertension [I10] PAROX VENTRIC TACHYCARD [I47.2] Automatic implantable cardioverter-defibrillato* BPH with obstruction/lower urinary tract sympto*09/16/2007 Type 2 diabetes mellitus, uncontrolled (HCC) [E*02/16/2008 1 04/21/2014 ESOPHAGEAL REFLUX [K21.9] 03/06/2008 Benign Neoplasm of Colon [D12.6] 02/21/2009 Labyrinthitis [H83.09] 02/05/2010 06/07/2014 Dermatophytosis of nail [B35.1] 06/05/2011 Atrial fibrillation [I48.91] 07/03/2011 Anticoagulated on Coumadin [Z79.01] 07/03/2011 Chronic diarrhea [K52.9] 09/16/2011 06/07/2014 Class 2 severe obesity due to excess calories w*09/16/2011 Stasis dermatitis of both legs [I87.2] 04/05/2013 Foot callus [L84] 10/04/2014 Subsequent non-ST elevation (NSTEMI) myocardial*12/25/2014 Syncope [R55] 02/19/2015 Hyperlipidemia LDL goal <100 [E78.5] 02/19/2015 ASHD (arteriosclerotic heart disease) [I25.10] 02/19/2015 Neurocardiogenic syncope [R55] 03/01/2015 Dysphagia [R13.10] 03/01/2015 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 Balanitis [N48.1] 11/16/2016 Coronary angioplasty status [Z98.61] 11/16/2016 Elevated troponin I level [R79.89] 01/29/2013 More... Family history of cerebrovascular accident (CVA*01/26/2018 History of deep venous thrombosis [Z86.718] 01/26/2018 History of non-ST elevation myocardial infarcti*01/26/2018 Ischemic cardiomyopathy [I25.5] 11/20/2017 Leukocytosis [D72.829] 01/29/2013 More... JESSICA (obstructive sleep apnea) [G47.33] 07/26/2018 RLS (restless legs syndrome) [G25.81] 07/28/2018 Localized swelling, mass and lump, neck [R22.1] 07/28/2018 Acute on chronic systolic congestive heart fail*12/17/2018 Encounter Status:Closed by BLOSSOM (PHARMACIST)JOLEEN on progress on 2019-10 PROGRESS HNO ID: [id number] Normal 11-04-2019 [facility] Author: Denita Thorpe (Pharmacist) [facility] ([id number]) Service: ? Author Type: Pharmacist Type: Progress Notes Filed: 11/15/2019 9:14 AM Note Text: TELEPHONIC APPOINTMENT [place] law requires the collaborative practice agreement to be initiated by a physician in order to provide medication titration. Thus, pharmacy will only provide medication recommendations and counseling today , unless recommendations are approved verbally by the consulting prov ider. ? REASON FOR CONSULT: DM GOALS: A1c < 8% (PCP prefers <7.5%) CONSULTING PROVIDER: ELBA Garsia Date of Consult: 09/16/2019 ? Lovely Devi is a 73 year old male was last seen b y PCP, Dr. Morgan Valdez, III MD on 10/27/2019. ? Subjective: Patient is CALLED today for Follow Up pharmacotherapy manage ment appointment for diabetes. At 09/15 ROLL TESTER appt, insulin NPH dose decreased pt was consulted to pharmacy due to increased hypoglycemia. At last ROLL TESTER visit gabapentin was initiated and empiric treatment for UTI was s tarted with nitrofurantoin monohydrate. At last PharmD visit on , insulin lispro dose was decreased and patient was recommended to pur funmilayo basal/bolus insulin pens through [facility] patient assista nce. At last PCP appt, no medication changes made but patient was encoura ged to watch carbohydrates in diet and exercise regularly. INTERIM HISTORY: States DM first diagnosed at least >10 years ago. He used to be on Lantus and Humalog but those were expensive so he has switched to insulin NPH and insulin R, Relion brand vials fr om [employer]. States he has not heard from [employer] patient assistance program yet about supply. States BG before dinner last night was in the 150s, he injec devin 17 units of insulin lispro and had and ate 2 ears of corn at dinner t bridgett. Despite that states his BG dropped to the 50s by evening time. Current DM Medications: Insulin lispro 17 units three times daily with meals Insulin NPH 32 units twice daily ? Preventative Medications: ? On NIYA/ARB: Yes ? On Statin: Yes ? On ASA: Yes ? ROS: ? Patient denies CP, SOB, FAITH, blurred vision, dizziness or l ightheadedness ? Patient denies symptoms of hypoglycemia (sweating, anxiety , palpitations, hunger, and tremor) ? Patient denies symptoms of hyperglycemia (polyuria, polydi psia, polyphagia) ? Patient denies potential medication adverse effects ? MEDICATIONS: ? Pill bottles are not present. ? Adherence: denies missed doses. ? Pharmacy: [facility] ? Rx coverage: Medicare ? Affordability: Gutierrez of brand name insulins is costly on i nsurance, on Relion brand insulin vials ? Diabetes supplies: Freestyle Anitra ? 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 Esophageal Reflux Benign Neoplasm of Colon Dermatophytosis of Nail Atrial Fibrillation ([facility]) Anticoagulated On Coumadin Class 2 Severe Obesity Due to Excess Calories With Serious C omorbidity and Body Mass Index (Bmi) of 38.0 to 38.9 in Adult ([facility]) Stasis Dermatitis of Both Legs Foot Callus Subsequent Non-St Elevation (Nstemi) Myocardial Infarction W ithin 4 Weeks of Initial Infarction ([facility]) Syncope Hyperlipidemia Ldl Goal <100 Ashd (Arteriosclerotic Heart Disease) Neurocardiogenic Syncope 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 , With Long-Term Current Use of Insulin (Hcc) Facet Arthritis of Lumbar Region Adenopathy Atrial Flutter ([facility]) Balanitis Coronary Angioplasty Status Elevated Troponin I Level Family History of Cerebrovascular Accident (Cva) History of Deep Venous Thrombosis History of Non-St Elevation Myocardial Infarction (Nstemi) Ischemic Cardiomyopathy Leukocytosis Jessica (Obstructive Sleep Apnea) Rls (Restless Legs Syndrome) Localized Swelling, Mass and Lump, Neck Acute On Chronic Systolic Congestive Heart Failure (Hcc) PAST MEDICAL HISTORY Diagnosis Date - ASHD (arteriosclerotic heart disease) 02/19/2015 - Atrial fibrillation (HCC) 07/03/2011 - Automatic implantable cardiac defibrillator in situ - Petit's esophagus with esophagitis 03/01/2015 - Benign neoplasm of colon - Chronic diarrhea 09/16/2011 - Coronary atherosclerosis of unspecified type of vessel, na tive or graft s/p PR in 1985 - Diverticulosis of colon (without mention of hemorrhage) - Duodenitis without mention of hemorrhage - Dysphagia 03/01/2015 - Facet arthritis of lumbar region 07/14/2017 - GERD (gastroesophageal reflux disease) 06/10/12 - Heart attack (HCC) - Labyrinthitis 02/05/2010 - Neurocardiogenic syncope 03/01/2015 - Obesity 09/16/2011 - JESSICA treated with BiPAP DME [employer] - Other and unspecified hyperlipidemia - Other specified forms of chronic ischemic heart disease - Paroxysmal ventricular tachycardia (HCC) - Snoring - Stroke ([facility]) - Tinea of nail 01/13/2011 - Type 2 diabetes mellitus with stage 3 chronic kidney disea se, with long-term current use of insulin ([facility]) 06/15/2017 - Unspecified essential hypertension ALLERGIES Allergen Reactions - Morphine - Rocephin [Ceftriaxo* Other: See Comments Hot flashes; redness to skin Current Outpatient Medications Medication Sig Dispense Refill - gabapentin (NEURONTIN) 300 mg capsule Take 3 capsules by m outh three times daily for 30 days. 270 capsule 0 - rOPINIRole (REQUIP) 0.5 mg tablet Take 1 tablet by mouth d aily at bedtime. 90 tablet 3 - insulin NPH injection (HumuLIN N,NovoLIN N) 32 units subcu taneous before breakfast and 32 units at bedtime - insulin regular human (NOVOLIN R REGULAR U-100 INSULN) 100 unit/mL injection Inject 17 units Subcutaneously three times daily b efore meals + sliding scale as directed ( 1 unit for every 50 mg/dL above 150 mg/dL) - latanoprost (XALATAN) 0.005 % ophthalmic solution Use 1 Dr huerta in both eyes three times daily. - colestipol (COLESTID) 1 gram tablet Take 1 g by mouth twic e daily. - carvedilol (COREG) 3.125 mg tablet Take 2 tablets by mouth twice daily. for one week starting on 06/20/16 then will be taking 6.25 x 2 daily . 0 - Cholecalciferol, Vitamin D3, 50 mcg (2,000 unit) cap Take 1 capsule by mouth once daily. - traZODone (DESYREL) 50 mg tablet Take 2 tablets by mouth d aily at bedtime. 180 tablet 1 - warfarin (COUMADIN) 3 mg tablet 3 mg every Mon, Wed, Fri; 6 mg all other days 150 tablet 3 - clopidogrel (PLAVIX) 75 mg tablet Take 1 tablet by mouth o nce daily. 90 tablet 3 - Insulin Syringe-Needle U-100 (BD ULTRAFINE INSULIN) 1 mL 3 1 gauge x 5/16 1 Each five times daily. 450 Each 3 - lisinopril (ZESTRIL, PRINIVIL) 20 mg tablet Take 1 tablet by mouth once daily. 90 tablet 1 - furosemide (LASIX) 40 mg tablet Take 1 tablet by mouth twi ce daily. 60 tablet 11 - BIPAP Initiate BiPAP @ 24/18 cm of water with humidificati on. Mask (per patient preference), chin strap, filters, tubing / heated tu jin, heated humidity and lifetime supplies. Dx. JESSICA G47.33 327.23 - fax compliance download to [phone] 1 Device 0 - flash glucose sensor (FREESTYLE ANITRA 14 DAY SENSOR) kit 1 Each four times daily. 1 Kit 11 - Back Brace misc 1 Device once daily as needed. size large 1 Each 0 - amiodarone (PACERONE) 200 mg tablet Take 1 tablet by mouth once daily. - spironolactone (ALDACTONE) 25 mg tablet Take 1 tablet by m outh once daily. - isosorbide mononitrate ER (IMDUR) 30 mg 24 hr tablet Take 60 mg by mouth once daily. 0 - blood sugar diagnostic ([employer] BLOOD GLUCOSE SYSTEM) test strip Use as instructed to check blood sugar 3 to 4 times daily DM: yes I nsulin: yes DX:11.9 400 Strip 3 - ranolazine SR (RANEXA) 1,000 mg Tb12 Take 1 tablet by mout h twice daily. - fenofibrate nanocrystallized (TRICOR) 145 mg tablet Take 1 tablet by mouth once daily. 0 - pantoprazole DR (PROTONIX) 40 mg tablet Take 40 mg by mout h once daily. - Lancets (ONE TOUCH ULTRASOFT LANCETS) lancets Use with One touch Glucometer as directed 100 Each 3 - Aspirin 81 mg ORAL Tab Take 1 tablet by mouth once daily. Take with food. 30 tablet 11 - CRESTOR 40 MG TAB Take one(1) tablet daily. 0 - NITROGLYCERIN 0.3 MG SUBLINGUAL TAB Dissolve 0.4 mg under the tongue. Usual dose for angina is 1 tablet every 5 minutes for maximu m of 3 doses in 15 minutes. 0 No current facility-administered medications for this visit. Objective: Last 3 Encounter BP Readings: Date: BP: 10/27/2019 119/72 10/06/2019 128/70 09/16/2019 122/70 Wt: 120.7 kg (266 lb) BMI: 40.45 kg/(m2) LABS Lab Results Component Value Date HBA1C 7.6 10/14/2019 HBA1C 6.8 04/21/2019 HBA1C 7.3 01/14/2019 CMP: Glucose 197 10/14/2019 BUN 27 10/14/2019 Creatinine 1.30 10/14/2019 Sodium 135 10/14/2019 Potassium 4.6 10/14/2019 Chloride 101 10/14/2019 CO2 24 10/14/2019 Protein, Total 6.0 10/14/2019 Albumin 4.1 10/14/2019 Calcium 9.0 10/14/2019 Alkaline Phosphatase 55 10/14/2019 Bilirubin, Total 0.4 10/14/2019 AST 23 10/14/2019 ALT 26 10/14/2019 eGFR = 54 mL/min/1.73m2 Vitamin B12 Date Value Ref Range Status 12/17/2018 384 232 - 1,245 pg/mL Final Lab Results Component Value Date CHOL 123 10/14/2019 LDL 53 10/14/2019 HDL 35 10/14/2019 TG 177 10/14/2019 Albumin/Creat Ratio (mg/g) Date Value 10/14/2019 Not calculated PHARMACOTHERAPY ASSESSMENT/PLAN: 1. Type 2 diabetes mellitus with stage 3 chronic kidney dise ase, with long-term current use of insulin (HCC) - ICD9: 250.40, 585.3 , V58.67, ICD10: E11.22, N18.3, Z79.4 A1c goal < 8% (PCP prefers 7.5%); not at goal (last A1c 7.6% ); SMBG at goal on current regimen with continued report of s/sx hypogl ycemia and BG in the 50s. He has h/o hypoglycemia unawareness with BG in t he 50s. To prevent risk of large BG drop and hypoglycemia, will recomme nd decreasing insulin R dose. Patient would also benefit from switching in sulin NPH to insulin glargine for decreased risk of hypoglycemia with bryant gopi duration of action. Patient assistance forms for [email or web address] have been fazed and awaiting approval. Renal function and LFTs appropriate for c ontinued use. [place] law requires the collaborative practice agreement to be initiated by a physician in order to provide medication titration. Thus, pharmacy will only provide medication recommendations and counseling today , unless recommendations are approved verbally by the consulting prov ider. ? Recommend to decrease insulin R to 15 units before meals t hree times daily plus sliding scale? Add 0 units if Blood Sugar is between 70-150 Add 1 units if Blood Sugar is between 151-200 Add 2 units if Blood Sugar is between 201-250 Add 3 units if Blood Sugar is between 251-300 Add 4 units if Blood Sugar is between 301-350 Add 5 units if Blood Sugar is between 351-400 BS > 400 , call your physician ? Recommend to continue insulin NPH 32 units twice daily ? Encouraged to check BG before bedtime and if BG is less th an 100 mg/dL at bedtime, encouraged patient to have a protein snack (hard boiled egg, cottage cheese...) ? Awaiting approval for switching to Basaglar and Humalog th [facility] patient assistance ? ACEi/ARB for renal protection: yes, Scr and K+ ok to royal nue ? HbA1c: 01/14/2020 ? Patient is not scheduled to see PCP. Patient to follow up with PharmD on 11/21/2019. Patient verbalized understanding of instructions. Denita Thorpe, LisaD Primary Care Clinical Pharmacist [facility] yoandy on 2019-11-04 CNPN Telephone (PHMEWO) Normal 11-04-2019 [facility] LOVELY DEVI ([id number]) 1945 [place] Date Time Provider Department ([id number]) 11/04/19 KEMI (PHARMACIST)DENITA During your visit today, we recorded the following informati on about you: Denita Thorpe, Pharmacist 11/04/2019 4:56 PM Signed Spoke with pt to review BG readings since last dose change. As pt continues to have incidences of hy poglycemia, patient would benefit from decreasing insulin R further today to prevent ri sk of hypoglycemia. In future hoping to switch from insulin NPH to Basaglar as longer duration of action of Basaglar has lower hypoglycemia risk (has not been able to do so yet due to cost). He is awaiting approval of g etmaycol new insulin pens Basaglar/Humalog to replace insulin R and insulin NPH vials once approved. Current DM Medications: Insulin R 17 units three times daily with meals Insulin NPH 32?units twice daily As current consult to pharmacy is signed by ELBA cosme, unable to make medication adjustments without PCP signature of pharmacy ref erral. ? Pended below medication changes, please sign as you find a ppropriate: ? Recommended changes: ? DECREASE Insulin R 15 units three times daily with meals plus sliding scale ? CONITNUE Insulin NPH 32?units twice daily Pending Prescriptions Disp Refills INSULIN U-100 REGULAR HUMAN 100 UNIT/ML INJECTION SOLUTION Sig: Inject 15 units Subcutaneously three times daily before meals + sliding scale as directed ( 1 unit for every 50 mg/dL above 150 mg/d L) ZBIGNIEW: No Denita Thorpe, PharmD, BCACP Primary Care Clinical Pharmacist [facility] Allergies As of Date: 11/04/2019 Noted Allergy Reaction MORPHINE 02/28/2005 ROCEPHIN (CEFTRIAXONE SODIUM) 06/20/2014 14 - Other: See Com ments Comments: Hot flashes; redness to skin Date Reviewed: 10/27/2019 Reviewed by: Linwood ([facility]) JAZZY Carpenter - Fully Assessed Reason for Visit: Diabetes [34] Cmt: Medication recommendations Visit Diagnosis:Type [address] 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, with long-term current use of insulin ([facility]) [E11.22, N18.3, Z79.4] Order(s):insulin regular human (NOVOLIN R REGULAR U-100 IN SULN) 100 unit/mL injectionInject 15 units Subcutaneously three times daily be fore meals + sliding scale as directed ( 1 unit for every 50 mg/d L above 150 mg/dL)Disp: Rfl: Prescriptions as of 11/04/2019 Sig: INSULIN U-100 REGULAR HUMAN 1* Inject 15 units Subcutaneousl * GABAPENTIN 300 MG CAPSULE Take 3 capsules by mouth thre* ROPINIROLE 0.5 MG TABLET Take 1 tablet by mouth daily * INSULIN NPH ISOPHANE U-100 HU* 32 units subcutaneous before * LATANOPROST 0.005 % EYE DROPS Use 1 Drop in both eyes three* COLESTIPOL 1 GRAM TABLET Take 1 g by mouth twice daily. CARVEDILOL 3.125 MG TABLET Take 2 tablets by mouth twice* CHOLECALCIFEROL (VITAMIN D3) * Take 1 capsule by mouth once * TRAZODONE 50 MG TABLET Take 2 tablets by mouth daily* WARFARIN 3 MG TABLET 3 mg every Mon, Wed, Fri; 6 m* CLOPIDOGREL 75 MG TABLET Take 1 tablet by mouth once d* INSULIN SYRINGE U-100 WITH NE* 1 Each five times daily. LISINOPRIL 20 MG TABLET Take 1 tablet by mouth once d* FUROSEMIDE 40 MG TABLET Take 1 tablet by mouth twice * BIPAP Initiate BiPAP @ 24/18 cm of * FLASH GLUCOSE SENSOR KIT 1 Each four times daily. BACK BRACE 1 Device once daily as needed* AMIODARONE 200 MG TABLET Take 1 tablet by mouth once d* SPIRONOLACTONE 25 MG TABLET Take 1 tablet by mouth once d* ISOSORBIDE MONONITRATE ER 30 * Take 60 mg by mouth once ajay * BLOOD SUGAR DIAGNOSTIC STRIPS Use as instructed to check bl* RANOLAZINE ER 1,000 MG TABLET* Take 1 tablet by mouth twice * FENOFIBRATE NANOCRYSTALLIZED * Take 1 tablet by mouth once d * PANTOPRAZOLE 40 MG TABLET,DEL* Take 40 mg by mouth once ajay * LANCETS Use with [employer] Glucometer * ASPIRIN 81 MG TABLET Take 1 tablet by mouth once d* CRESTOR 40 MG TABLET Take one(1) tablet daily. NITROGLYCERIN 0.3 MG SUBLINGU* Dissolve 0.4 mg under the ton * Problem List As Of Date 11/04/2019 Noted Resolved CARDIOMEGALY [I51.7] Duodenitis without mention of hemorrhage [K29.8* 06/07/2014 Essential hypertension [I10] PAROX VENTRIC TACHYCARD [I47.2] Automatic implantable cardioverter-defibrillato* BPH with obstruction/lower urinary tract sympto*09/16/2007 Type 2 diabetes mellitus, uncontrolled (HCC) [E*02/16/2008 1 04/21/2014 ESOPHAGEAL REFLUX [K21.9] 03/06/2008 Benign Neoplasm of Colon [D12.6] 02/21/2009 Labyrinthitis [H83.09] 02/05/2010 06/07/2014 Dermatophytosis of nail [B35.1] 06/05/2011 Atrial fibrillation [I48.91] 07/03/2011 Anticoagulated on Coumadin [Z79.01] 07/03/2011 Chronic diarrhea [K52.9] 09/16/2011 06/07/2014 Class 2 severe obesity due to excess calories w*09/16/2011 Stasis dermatitis of both legs [I87.2] 04/05/2013 Foot callus [L84] 10/04/2014 Subsequent non-ST elevation (NSTEMI) myocardial*12/25/2014 Syncope [R55] 02/19/2015 Hyperlipidemia LDL goal <100 [E78.5] 02/19/2015 ASHD (arteriosclerotic heart disease) [I25.10] 02/19/2015 Neurocardiogenic syncope [R55] 03/01/2015 Dysphagia [R13.10] 03/01/2015 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 Balanitis [N48.1] 11/16/2016 Coronary angioplasty status [Z98.61] 11/16/2016 Elevated troponin I level [R79.89] 01/29/2013 More... Family history of cerebrovascular accident (CVA*01/26/2018 History of deep venous thrombosis [Z86.718] 01/26/2018 History of non-ST elevation myocardial infarcti*01/26/2018 Ischemic cardiomyopathy [I25.5] 11/20/2017 Leukocytosis [D72.829] 01/29/2013 More... JESSICA (obstructive sleep apnea) [G47.33] 07/26/2018 RLS (restless legs syndrome) [G25.81] 07/28/2018 Localized swelling, mass and lump, neck [R22.1] 07/28/2018 Acute on chronic systolic congestive heart fail*12/17/2018 Prescriptions ordered this encounter Disp Refills Start End INSULIN U-100 REGULAR HUMAN 100 UNIT* 11/08/2019 Class: Med Update Sig: Inject 15 units Subcutaneously three times daily before meals + sliding scale as directed ( 1 unit for every 50 mg/dL above 150 mg/d L) Medications Discontinued During This Encounter Prescriptions - insulin regular human (NOVOLIN R REGUL AR U-100 INSULN) 100 unit/mL injection (Discontinued) Inject 17 units Subcutaneously three times daily before meals + sliding scale as directed ( 1 unit for every 50 mg/dL above 150 mg/dL) Encounter Status:Closed by KEMI (PHARMACIST)DENITA on CNPN Telephone (NICOLEPWS) Normal 11-04-2019 [facility] LOVELY DEVI ([id number]) 1945 [place] Date Time Provider Department ([id number]) 11/04/19 MORGAN VALDEZ III During your visit today, we recorded the following informati on about you: Kaitlin King LPN 11/04/2019 3:29 PM Signed Melissa from [facility] Home Health calling for recert orders, 2 visit s weekly for 9 weeks for wound care. 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 Dante Chavez Ma 11/07/2019 3:18 PM Signed TC to Melissa - Detailed message left on confidential voicemail . Dante Chavez Ma Allergies As of Date: 11/04/2019 Noted Allergy Reaction MORPHINE 02/28/2005 ROCEPHIN (CEFTRIAXONE SODIUM) 06/20/2014 14 - Other: See Com ments Comments: Hot flashes; redness to skin Date Reviewed: 10/27/2019 Reviewed by: Lin[place] ([facility]) JAZZY Carpenter - Fully Assessed Reason for Visit: home health calling verbal orders [Other] Prescriptions as of 11/04/2019 Sig: GABAPENTIN 300 MG CAPSULE Take 3 capsules by mouth thre* ROPINIROLE 0.5 MG TABLET Take 1 tablet by mouth daily * INSULIN NPH ISOPHANE U-100 HU* 32 units subcutaneous before * INSULIN U-100 REGULAR HUMAN 1* Inject 17 units Subcutaneousl * LATANOPROST 0.005 % EYE DROPS Use 1 Drop in both eyes three* COLESTIPOL 1 GRAM TABLET Take 1 g by mouth twice daily. CARVEDILOL 3.125 MG TABLET Take 2 tablets by mouth twice* CHOLECALCIFEROL (VITAMIN D3) * Take 1 capsule by mouth once * TRAZODONE 50 MG TABLET Take 2 tablets by mouth daily* WARFARIN 3 MG TABLET 3 mg every Mon, Wed, Fri; 6 m* CLOPIDOGREL 75 MG TABLET Take 1 tablet by mouth once d* INSULIN SYRINGE U-100 WITH NE* 1 Each five times daily. LISINOPRIL 20 MG TABLET Take 1 tablet by mouth once d* FUROSEMIDE 40 MG TABLET Take 1 tablet by mouth twice * BIPAP Initiate BiPAP @ 24/18 cm of * FLASH GLUCOSE SENSOR KIT 1 Each four times daily. BACK BRACE 1 Device once daily as needed* AMIODARONE 200 MG TABLET Take 1 tablet by mouth once d* SPIRONOLACTONE 25 MG TABLET Take 1 tablet by mouth once d* ISOSORBIDE MONONITRATE ER 30 * Take 60 mg by mouth once ajay * BLOOD SUGAR DIAGNOSTIC STRIPS Use as instructed to check bl* RANOLAZINE ER 1,000 MG TABLET* Take 1 tablet by mouth twice * FENOFIBRATE NANOCRYSTALLIZED * Take 1 tablet by mouth once d * PANTOPRAZOLE 40 MG TABLET,DEL* Take 40 mg by mouth once ajay * LANCETS Use with [employer] Glucometer * ASPIRIN 81 MG TABLET Take 1 tablet by mouth once d* CRESTOR 40 MG TABLET Take one(1) tablet daily. NITROGLYCERIN 0.3 MG SUBLINGU* Dissolve 0.4 mg under the ton * Problem List As Of Date 11/04/2019 Noted Resolved CARDIOMEGALY [I51.7] Duodenitis without mention of hemorrhage [K29.8* 06/07/2014 Essential hypertension [I10] PAROX VENTRIC TACHYCARD [I47.2] Automatic implantable cardioverter-defibrillato* BPH with obstruction/lower urinary tract sympto*09/16/2007 Type 2 diabetes mellitus, uncontrolled (HCC) [E*02/16/2008 1 04/21/2014 ESOPHAGEAL REFLUX [K21.9] 03/06/2008 Benign Neoplasm of Colon [D12.6] 02/21/2009 Labyrinthitis [H83.09] 02/05/2010 06/07/2014 Dermatophytosis of nail [B35.1] 06/05/2011 Atrial fibrillation [I48.91] 07/03/2011 Anticoagulated on Coumadin [Z79.01] 07/03/2011 Chronic diarrhea [K52.9] 09/16/2011 06/07/2014 Class 2 severe obesity due to excess calories w*09/16/2011 Stasis dermatitis of both legs [I87.2] 04/05/2013 Foot callus [L84] 10/04/2014 Subsequent non-ST elevation (NSTEMI) myocardial*12/25/2014 Syncope [R55] 02/19/2015 Hyperlipidemia LDL goal <100 [E78.5] 02/19/2015 ASHD (arteriosclerotic heart disease) [I25.10] 02/19/2015 Neurocardiogenic syncope [R55] 03/01/2015 Dysphagia [R13.10] 03/01/2015 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 Balanitis [N48.1] 11/16/2016 Coronary angioplasty status [Z98.61] 11/16/2016 Elevated troponin I level [R79.89] 01/29/2013 More... Family history of cerebrovascular accident (CVA*01/26/2018 History of deep venous thrombosis [Z86.718] 01/26/2018 History of non-ST elevation myocardial infarcti*01/26/2018 Ischemic cardiomyopathy [I25.5] 11/20/2017 Leukocytosis [D72.829] 01/29/2013 More... JESSICA (obstructive sleep apnea) [G47.33] 07/26/2018 RLS (restless legs syndrome) [G25.81] 07/28/2018 Localized swelling, mass and lump, neck [R22.1] 07/28/2018 Acute on chronic systolic congestive heart fail*12/17/2018 Encounter Status:Closed by DANTE CHAVEZ MA on 11/07/19 cnov on 2019-11-04 CNOV Office Visit (PHMEWO) Normal 11-04-[address] [place] [address] [facility] LOVELY DEVI ([id number]) 1945 [facility] Date Time Provider Department ([id number]) 11/04/19 10:30 AM [facility]ACIST[facility] During your visit today, we recorded the following informati on about you: Anshul Hancock 11/15/2019 9:14 AM Signed TELEPHONIC APPOINTMENT [place] law requires the collaborative practice agreement to be initiated by a physician in order to provide medication titration. Th us, pharmacy will only provide medication recommend ations and counseling today, unless recommendations are approved verbally by the consulting provider. ? REASON FOR CONSULT: DM GOALS: A1c < 8% (PCP prefers <7.5%) CONSULTING PROVIDER: ELBA Deniz Garsia Date of Consult: 09/16/2019 ? Lovely Devi is a 73 year old male was last seen by PCP, Dr. Morgan Valdez III MD on 10/27/2019. ? Subjective: Patient is CALLED today for Follow Up pharmacotherapy management appointment for diabetes. At 09/15 ROLL TESTER appt, insulin NPH dose decreased pt was consulted to pharmacy due to increased hypoglycemia. At last ROLL TESTER visit ga bapentin was initiated and empiric treatment for UTI was started with nit rofurantoin monohydrate. At last PharmD visit on , insulin lispr o dose was decreased and patient was recommended to pursue basal/bolus insulin pens through [employer] [facility] patient assistance. At last PCP appt, no medication changes made but patient was encouraged to watch carbohydrates in diet and exercise regularly. INTERIM HISTORY: States DM first diagnosed at least >10 years ago. He used to be on Lantus and Humalog but those were expensive so he has switched to insulin NPH and insulin R, Relion brand [facility]ials [facility] States he has not heard from [employer] [facility] patient assistance program yet about supply. States BG before dinner last night was in the 150s, he inj ected 17 units of insulin lispro and had and ate 2 ears of corn at dinner time . Despite that states his BG dropped to the 50s by evening time. Current DM Medications: Insulin lispro 17 units three times daily with meals Insulin NPH 32 units twice daily ? Preventative Medications: ? On NIYA/ARB: Yes ? On Statin: Yes ? On ASA: Yes ? ROS: ? Patient denies CP, SOB, FAITH, blurred vision, dizziness or l ightheadedness ? Patient denies symptoms of hypoglycemia (sweating, anxie ty, palpitations, hunger, and tremor) ? Patient denies symptoms of hyperglycemia (poly uria, polydipsia, polyphagia) ? Patient denies potential medication adverse effects ? MEDICATIONS: ? Pill bottles are not present. ? Adherence: denies missed doses. ? Pharmacy: [facility] ? Rx coverage: Medicare ? Affordability: Gutierrez of br and name insulins is costly on insurance, on Relion brand insulin vials ? Diabetes supplies: Freestyle Anitra ? 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 Esophageal Reflux Benign Neoplasm of Colon Dermatophytosis of Nail Atrial Fibrillation (Hcc) Anticoagulated On Coumadin Class 2 Severe Obesity Due t o Excess Calories With Serious Comorbidity and Body Mass Index (Bmi) of 38.0 to 38.9 in Adult ([facility]) Stasis Dermatitis of Both Legs Foot Callus Subsequent Non-St Elevation (Nstemi) Myocardial Infarc tion Within 4 Weeks of Initial Infarction (Hcc) Syncope Hyperlipidemia Ldl Goal <100 Ashd (Arteriosclerotic Heart Disease) Neurocardiogenic Syncope 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 With Stage 3 Chronic Kidney D isease, With Long-Term Current Use of Insulin ([facility]) Facet Arthritis of Lumbar Region Adenopathy Atrial Flutter ([facility]) Balanitis Coronary Angioplasty Status Elevated Troponin I Level Family History of Cerebrovascular Accident (Cva) History of Deep Venous Thrombosis History of Non-St Elevation Myocardial Infarction (Nstemi) Ischemic Cardiomyopathy Leukocytosis Jessica (Obstructive Sleep Apnea) Rls (Restless Legs Syndrome) Localized Swelling, Mass and Lump, Neck Acute On Chronic Systolic Congestive Heart Failure (Hcc) PAST MEDICAL HISTORY Diagnosis Date - ASHD (arteriosclerotic heart disease) 02/19/2015 - Atrial fibrillation (HCC) 07/03/2011 - Automatic implantable cardiac defibrillator in situ - Petit's esophagus with esophagitis 03/01/2015 - Benign neoplasm of colon - Chronic diarrhea 09/16/2011 - Coronary atherosclerosis of unspecified type of vessel, na tive or graft s/p PR in 1985 - Diverticulosis of colon (without mention of hemorrhage) - Duodenitis without mention of hemorrhage - Dysphagia 03/01/2015 - Facet arthritis of lumbar region 07/14/2017 - GERD (gastroesophageal reflux disease) 06/10/12 - Heart attack (HCC) - Labyrinthitis 02/05/2010 - Neurocardiogenic syncope 03/01/2015 - Obesity 09/16/2011 - JESSICA treated with BiPAP DME [employer] - Other and unspecified hyperlipidemia - Other specified forms of chronic ischemic heart disease - Paroxysmal ventricular tachycardia (HCC) - Snoring - Stroke ([facility]) - Tinea of nail 01/13/2011 - Type 2 diabetes mellitus with st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, with long-term current use of insulin ([facility]) 06/15/2017 - Unspecified essential hypertension ALLERGIES Allergen Reactions - Morphine - Rocephin [Ceftriaxo* Other: See Comments Hot flashes; redness to skin Current Outpatient Medications Medication Sig Dispense Refill - gabapentin (NEURONTIN) 300 mg capsule Take 3 capsule s by mouth three times daily for 30 days. 270 capsule 0 - rOPINIRole (REQUIP) 0.5 mg tablet Take 1 tablet by mouth daily at bedtime. 90 tablet 3 - insulin NPH injection (HumuLIN N,NovoLIN N) 32 units subcu taneous before breakfast and 32 units at bedtime - insulin regular human (NOVOLIN R REGUL AR U-100 INSULN) 100 unit/mL injection Inject 17 units Subcutaneously three times daily before meals + sliding scale as directed ( 1 unit for every 50 mg/dL above 150 mg/dL) - latanoprost (XALATAN) 0.005 % ophthalmic solution Use 1 Drop in both eyes three times daily. - colestipol (COLESTID) 1 gram tablet Take 1 g by mouth twic e daily. - carvedilol (COREG) 3.125 mg tablet Take 2 tabl ets by mouth twice daily. for one week starting on 06/20/16 then will be taking 6.25 x 2 da alisha . 0 - Cholecalciferol, Vitamin D3, 50 mcg (2 ,000 unit) cap Take 1 capsule by mouth once daily. - traZODone (DESYREL) 50 mg tablet Take 2 tablets by m outh daily at bedtime. 180 tablet 1 - warfarin (COUMADIN) 3 mg t ablet 3 mg every Mon, Wed, Fri; 6 mg all other days 150 tablet 3 - clopidogrel (PLAVIX) 75 mg tablet Take 1 tablet by mouth o nce daily. 90 tablet 3 - Insulin Syringe-Needle U-100 (BD ULTRAFINE INSULIN) 1 mL 31 gauge x 5/16 1 Each five times daily. 450 Each 3 - lisinopril (ZESTRIL, PRINIVIL) 20 mg tablet Take 1 tablet by mouth once daily. 90 tablet 1 - furosemide (LASIX) 40 mg t ablet Take 1 tablet by mouth twice daily. 60 tablet 11 - BIPAP Initiate BiPAP @ 24/18 cm of water with humidificati on. Mask (per patient preference), chin strap, filters, tubing / heated tu jin, heated humidity and lifetime supplies. Dx. JESSICA G47.33 327.23 - fax compliance download to [phone] 1 Device 0 - flash glucose sensor (FREESTYLE ANITRA 14 DAY SENSOR) kit 1 Each four times daily. 1 Kit 11 - Back Brace misc 1 Device once daily as needed. size large 1 Each 0 - amiodarone (PACERONE) 200 mg tablet Take 1 tablet by mouth once daily. - spironolactone (ALDACTONE) 25 mg tablet Take 1 table t by mouth once daily. - isosorbide mononitrate ER (IMDUR) 30 mg 24 hr tablet Take 60 mg by mouth once daily. 0 - blood sugar diagnostic ([employer] BLOOD GLUCOSE SYSTEM) test strip Use as instructed to check blood ureña gar 3 to 4 times daily DM: yes Insulin: yes DX:11.9 400 Strip 3 - ranolazine SR (RANEXA) 1,000 mg Tb12 Take 1 tablet by mout h twice daily. - fenofibrate nanocrystallized (TRICOR) 145 mg tablet Take 1 tablet by mouth once daily. 0 - pantoprazole DR (PROTONIX) 40 mg tablet Take 40 mg by mout h once daily. - Lancets (ONE TOUCH ULTRASO FT LANCETS) lancets Use with [employer] Glucometer as directed 100 Each 3 - Aspirin 81 mg ORAL Tab Take 1 tablet b y mouth once daily. Take with food. 30 tablet 11 - CRESTOR 40 MG TAB Take one(1) tablet daily. 0 - NITROGLYCERIN 0.3 MG SUBLINGUAL TAB Dissolve 0 .4 mg under the tongue. Usual dose for angina is 1 tablet every 5 minutes for maximum of 3 doses in 15 minutes. 0 No current facility-administered medications for this visit. Objective: Last 3 Encounter BP Readings: Date: BP: 10/27/2019 119/72 10/06/2019 128/70 09/16/2019 122/70 Wt: 120.7 kg (266 lb) BMI: 40.45 kg/(m2) LABS Lab Results Component Value Date HBA1C 7.6 10/14/2019 HBA1C 6.8 04/21/2019 HBA1C 7.3 01/14/2019 CMP: Glucose 197 10/14/2019 BUN 27 10/14/2019 Creatinine 1.30 10/14/2019 Sodium 135 10/14/2019 Potassium 4.6 10/14/2019 Chloride 101 10/14/2019 CO2 24 10/14/2019 Protein, Total 6.0 10/14/2019 Albumin 4.1 10/14/2019 Calcium 9.0 10/14/2019 Alkaline Phosphatase 55 10/14/2019 Bilirubin, Total 0.4 10/14/2019 AST 23 10/14/2019 ALT 26 10/14/2019 eGFR = 54 mL/min/1.73m2 Vitamin B12 Date Value Ref Range Status 12/17/2018 384 232 - 1,245 pg/mL Final Lab Results Component Value Date CHOL 123 10/14/2019 LDL 53 10/14/2019 HDL 35 10/14/2019 TG 177 10/14/2019 Albumin/Creat Ratio (mg/g) Date Value 10/14/2019 Not calculated PHARMACOTHERAPY ASSESSMENT/PLAN: 1. Type 2 diabetes mellitus with st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, with long-term current use of insulin ([facility]) - ICD9: 250.40, 585.3, V58.67, ICD10: E11.22, N18.3, Z79.4 A1c goal < 8% (PCP prefers 7.5%); not at goal (last A1c 7.6%); SMBG at goal on current regimen with continued report of s/sx hy poglycemia and BG in the 50s. He has h/o hypoglycemia unawareness with BG in the 50s. To p revent risk of large BG drop and hypoglycemia, will recommend decreasing in sulin R dose. Patient would also benefit from switching insuli n NPH to insulin glargine for decreased risk of hypoglycemia with longer duration of actio n. Patient assistance forms for [employer] have been fazed and aw aiting approval. Renal function and LFTs appropriate for continued use. [place] law requires the collaborative practice agreement to be initiated by a physician in order to provide medication titration. us, pharmacy will only provide medication recommend ations and counseling today, unless recommendations are approved verbally by the consulting provider. ? Recommend to decrease insulin R to 15 units before m eals three times daily plus sliding scale? Add 0 units if Blood Sugar is between 70-150 Add 1 units if Blood Sugar is between 151-200 Add 2 units if Blood Sugar is between 201-250 Add 3 units if Blood Sugar is between 251-300 Add 4 units if Blood Sugar is between 301-350 Add 5 units if Blood Sugar is between 351-400 BS > 400 , call your physician ? Recommend to continue insulin NPH 32 units twice daily ? Encouraged to check BG before bedtime and if BG is less than 100 mg/dL at bedtime, encouraged patient to have a protein sn ack (hard boiled egg, cottage cheese...) ? Awaiting approval for switching to Basaglar an d Humalog through Where patient assistance ? ACEi/ARB for renal protection: yes, Scr and K+ ok to royal nue ? HbA1c: 01/14/2020 ? Patient is not scheduled to see PCP. Patient to follow up with PharmD on 11/21/2019. Patient verbalized understanding of instructions. Denita Thorpe, PharmD Primary Care Clinical Pharmacist [place] [facility] Referring Provider: DENIZ GARSIA [[id number]] Allergies As of Date: 11/04/2019 Noted Allergy Reaction MORPHINE 02/28/2005 ROCEPHIN (CEFTRIAXONE SODIUM) 06/20/2014 14 - Other: See Com ments Comments: Hot flashes; redness to skin Date Reviewed: 10/27/2019 Reviewed by: [place] ([facility]) JAZZY Carpenter - Fully Assessed Reason for Visit: Allied Health Visit [5] Cmt: DM Primary Visit Diagnosis:Type 2 diabetes mellitus with st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, with long-term current use of insulin ([facility]) [E11.22, N18.3, Z79.4] Prescriptions as of 11/04/2019 Sig: INSULIN U-100 REGULAR HUMAN 1* Inject 15 units Subcutaneousl * GABAPENTIN 300 MG CAPSULE Take 3 capsules by mouth thre* ROPINIROLE 0.5 MG TABLET Take 1 tablet by mouth daily * INSULIN NPH ISOPHANE U-100 HU* 32 units subcutaneous before * LATANOPROST 0.005 % EYE DROPS Use 1 Drop in both eyes three* COLESTIPOL 1 GRAM TABLET Take 1 g by mouth twice daily. CARVEDILOL 3.125 MG TABLET Take 2 tablets by mouth twice* CHOLECALCIFEROL (VITAMIN D3) * Take 1 capsule by mouth once * TRAZODONE 50 MG TABLET Take 2 tablets by mouth daily* WARFARIN 3 MG TABLET 3 mg every Mon, Wed, Fri; 6 m* CLOPIDOGREL 75 MG TABLET Take 1 tablet by mouth once d* INSULIN SYRINGE U-100 WITH NE* 1 Each five times daily. LISINOPRIL 20 MG TABLET Take 1 tablet by mouth once d* FUROSEMIDE 40 MG TABLET Take 1 tablet by mouth twice * BIPAP Initiate BiPAP @ 24/18 cm of * FLASH GLUCOSE SENSOR KIT 1 Each four times daily. BACK BRACE 1 Device once daily as needed* AMIODARONE 200 MG TABLET Take 1 tablet by mouth once d* SPIRONOLACTONE 25 MG TABLET Take 1 tablet by mouth once d* ISOSORBIDE MONONITRATE ER 30 * Take 60 mg by mouth once ajay * BLOOD SUGAR DIAGNOSTIC STRIPS Use as instructed to check bl* RANOLAZINE ER 1,000 MG TABLET* Take 1 tablet by mouth twice * FENOFIBRATE NANOCRYSTALLIZED * Take 1 tablet by mouth once d * PANTOPRAZOLE 40 MG TABLET,DEL* Take 40 mg by mouth once ajay * LANCETS Use with [employer] Glucometer * ASPIRIN 81 MG TABLET Take 1 tablet by mouth once d* CRESTOR 40 MG TABLET Take one(1) tablet daily. NITROGLYCERIN 0.3 MG SUBLINGU* Dissolve 0.4 mg under the ton * Problem List As Of Date 11/04/2019 Noted Resolved CARDIOMEGALY [I51.7] Duodenitis without mention of hemorrhage [K29.8* 06/07/2014 Essential hypertension [I10] PAROX VENTRIC TACHYCARD [I47.2] Automatic implantable cardioverter-defibrillato* BPH with obstruction/lower urinary tract sympto*09/16/2007 Type 2 diabetes mellitus, uncontrolled (HCC) [E*02/16/2008 1 04/21/2014 ESOPHAGEAL REFLUX [K21.9] 03/06/2008 Benign Neoplasm of Colon [D12.6] 02/21/2009 Labyrinthitis [H83.09] 02/05/2010 06/07/2014 Dermatophytosis of nail [B35.1] 06/05/2011 Atrial fibrillation [I48.91] 07/03/2011 Anticoagulated on Coumadin [Z79.01] 07/03/2011 Chronic diarrhea [K52.9] 09/16/2011 06/07/2014 Class 2 severe obesity due to excess calories w*09/16/2011 Stasis dermatitis of both legs [I87.2] 04/05/2013 Foot callus [L84] 10/04/2014 Subsequent non-ST elevation (NSTEMI) myocardial*12/25/2014 Syncope [R55] 02/19/2015 Hyperlipidemia LDL goal <100 [E78.5] 02/19/2015 ASHD (arteriosclerotic heart disease) [I25.10] 02/19/2015 Neurocardiogenic syncope [R55] 03/01/2015 Dysphagia [R13.10] 03/01/2015 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 Balanitis [N48.1] 11/16/2016 Coronary angioplasty status [Z98.61] 11/16/2016 Elevated troponin I level [R79.89] 01/29/2013 More... Family history of cerebrovascular accident (CVA*01/26/2018 History of deep venous thrombosis [Z86.718] 01/26/2018 History of non-ST elevation myocardial infarcti*01/26/2018 Ischemic cardiomyopathy [I25.5] 11/20/2017 Leukocytosis [D72.829] 01/29/2013 More... JESSICA (obstructive sleep apnea) [G47.33] 07/26/2018 RLS (restless legs syndrome) [G25.81] 07/28/2018 Localized swelling, mass and lump, neck [R22.1] 07/28/2018 Acute on chronic systolic congestive heart fail*12/17/2018 Encounter Status:Closed by KEMI (PHARMACIST)DENITA on progress on 2019-09 PROGRESS HNO ID: [id number] Normal 10-27-2019 [facility] Author: Morgan Valdez III [place] ([id number]) Service: ? Author Type: Physician Type: Progress Notes Filed: 10/27/2019 10:01 AM Note Text: SUBJECTIVE: This is a 74 year old male that is here today fo r 6 month check up 1. fx L ankle 10 wks ago. Still wearing boot. Tylenol prn pa in 2. continues to have burning pain distal to knees bilat. --w orse since he developed cellulitis of lower legs bilat 3. diabetes mellitus--home glu 150 since he increased eating and reduced insulin doses. Discussed with patient the need for modest lo wer of glucose to promote healing from cellulitis, but recognized the harm of hypoglycemia. Recommend improved diet with lower carbohydrate intake and c ontinue present medications 4. seen at [facility] in August with chest pain and treated for cellu litis in ICU. Still having some chest pain, constant aching not clearly wo rse with walking but seems to resolve completely with NTG. To see car diologist today. 5. JESSICA--tries to use CPAP but mask leaks and he often pulls it off. Still has daytime fatigue. Dealing with [facility] Current Outpatient Medications on File Prior to Visit Medication Sig - gabapentin (NEURONTIN) 300 mg capsule Take 2 capsules by m outh three times daily for 30 days. - rOPINIRole (REQUIP) 0.5 mg tablet Take 1 tablet by mouth d aily at bedtime. - insulin NPH injection (HumuLIN N,NovoLIN N) 32 units subcu taneous before breakfast and 32 units at bedtime - insulin regular human (NOVOLIN R REGULAR U-100 INSULN) 100 unit/mL injection Inject 17 units Subcutaneously three times daily b efore meals + sliding scale as directed ( 1 unit for every 50 mg/dL above 150 mg/dL) - latanoprost (XALATAN) 0.005 % ophthalmic solution Use 1 Dr op in both eyes three times daily. - colestipol (COLESTID) 1 gram tablet Take 1 g by mouth twic e daily. - carvedilol (COREG) 3.125 mg tablet Take 2 tablets by mouth twice daily. for one week starting on 06/20/16 then will be taking 6.25 x 2 daily . - Cholecalciferol, Vitamin D3, 50 mcg (2,000 unit) cap Take 1 capsule by mouth once daily. - traZODone (DESYREL) 50 mg tablet Take 2 tablets by mouth d aily at bedtime. - warfarin (COUMADIN) 3 mg tablet 3 mg every Mon, Wed, Fri; 6 mg all other days - clopidogrel (PLAVIX) 75 mg tablet Take 1 tablet by mouth o nce daily. - Insulin Syringe-Needle U-100 (BD ULTRAFINE INSULIN) 1 mL 3 1 gauge x /16 1 Each five times daily. - lisinopril (ZESTRIL, PRINIVIL) 20 mg tablet Take 1 tablet by mouth once daily. - furosemide (LASIX) 40 mg tablet Take 1 tablet by mouth twi ce daily. - BIPAP Initiate BiPAP @ 24/18 cm of water with humidificati on. Mask (per patient preference), chin strap, filters, tubing / heated tu jin, heated humidity and lifetime supplies. Dx. JESSICA G47.33 327.23 - fax compliance download to [phone] - flash glucose sensor (FREESTYLE ANITRA 14 DAY SENSOR) kit 1 Each four times daily. - Back Brace misc 1 Device once daily as needed. size large - amiodarone (PACERONE) 200 mg tablet Take 1 tablet by mouth once daily. - spironolactone (ALDACTONE) 25 mg tablet Take 1 tablet by m outh once daily. - isosorbide mononitrate ER (IMDUR) 30 mg 24 hr tablet Take 60 mg by mouth once daily. - blood sugar diagnostic ([employer] BLOOD GLUCOSE SYSTEM) test strip Use as instructed to check blood sugar 3 to 4 times daily DM: yes I nsulin: yes DX:11.9 - ranolazine SR (RANEXA) 1,000 mg Tb12 Take 1 tablet by mout h twice daily. - fenofibrate nanocrystallized (TRICOR) 145 mg tablet Take 1 tablet by mouth once daily. - pantoprazole DR (PROTONIX) 40 mg tablet Take 40 mg by mout h once daily. - Lancets (ONE TOUCH ULTRASOFT LANCETS) lancets Use with One touch Glucometer as directed - Aspirin 81 mg ORAL Tab Take 1 tablet by mouth once daily. Take with food. - CRESTOR 40 MG TAB Take one(1) tablet daily. - NITROGLYCERIN 0.3 MG SUBLINGUAL TAB Dissolve 0.4 mg under the tongue. Usual dose for angina is 1 tablet every 5 minutes for maximu m of 3 doses in 15 minutes. No current facility-administered medications on file prior t o visit. PAST MEDICAL HISTORY Diagnosis Date - ASHD (arteriosclerotic heart disease) 02/19/2015 - Atrial fibrillation (HCC) 07/03/2011 - Automatic implantable cardiac defibrillator in situ - Petit's esophagus with esophagitis 03/01/2015 - Benign neoplasm of colon - Chronic diarrhea 09/16/2011 - Coronary atherosclerosis of unspecified type of vessel, na tive or graft s/p PR in 1985 - Diverticulosis of colon (without mention of hemorrhage) - Duodenitis without mention of hemorrhage - Dysphagia 03/01/2015 - Facet arthritis of lumbar region 07/14/2017 - GERD (gastroesophageal reflux disease) 06/10/12 - Heart attack (HCC) - Labyrinthitis 02/05/2010 - Neurocardiogenic syncope 03/01/2015 - Obesity 09/16/2011 - JESSICA treated with BiPAP DME [facility] - Other and unspecified hyperlipidemia - Other specified forms of chronic ischemic heart disease - Paroxysmal ventricular tachycardia (HCC) - Snoring - Stroke (HCC) - Tinea of nail 01/13/2011 - Type 2 diabetes mellitus with stage 3 chronic kidney disea se, with long-term current use of insulin (HCC) 06/15/2017 - Unspecified essential hypertension FAMILY HISTORY Problem Relation Age of Onset - Stroke Mother - Heart Mother - Cancer Father prostate - Heart Father - Breast Cancer Sister - Breast Cancer Sister - Diabetes Sister - Diabetes Brother - Diabetes Brother Social History Tobacco Use - Smoking status: Former Smoker Years: 15.00 Types: Cigars Last attempt to quit: 08/12/2007 Years since quittin.2 - Smokeless tobacco: Never Used - Tobacco comment: 2-3 per day Substance Use Topics - Alcohol use: No Frequency: Never Binge frequency: Never - Drug use: No BP 119/72 Pulse 68 Resp 20 Wt 120.7 kg (266 lb) BMI 40.45 kg/m? OBJECTIVE: APPEARANCE Well appearing, alert, in no acute distress, well -hydrated, well nourished. and Morbidly obese Cane in R hand NECK Supple, no adenopathy; thyroid symmetric, normal size, no bruits HEART RRR with normal S1 and S2, no murmurs, no gallops, no JVD appreciated LUNG clear to auscultation EXTREMITIES L foot in boot. Both lower legs have wrappings ASSESSMENT: ASHD--unstable angina hypertension-at goal diabetes mellitus --Aic 7.6 peripheral neuropathy--fair pain control cellulitis lower legs bilat healing L ankle fracture JESSICA--inadequate treatment PLAN: healthy weight losing diet and regular exercise eat less sugar, bread, potato, pasta, rice, corn, corn syrup , saturated fats recheck HbA1c 3 mos increase gabapentin 900 mg three times/day for nerve pain continue wound care at wound center follow up with passenger agent follow up with FEDER[facility] Benítez MD on 2019-10-27 [facility] Office Visit ([facility]) Normal 10-27-19 [facility] LOVELY DEVI ([id number]) 1945 M [place] Date Time Provider Department ([id number]) 10/27/19 8:40 AM MORGAN VALDEZ III During your visit today, we recorded the following informati on about you: Pulse Respiration Blood pressure Weight 68/minute 20/minute 119/72 120.7 kg Morgan Valdez III MD 10/27/2019 10:01 AM Signed SUBJECTIVE: This is a 74 year old male t hat is here today for 6 month check up 1. fx L ankle 10 wks ago. Still wearing boot. Tylenol prn pa in 2. continues to have burning pain distal to knees bilat. --w orse since he developed cellulitis of lower legs bilat 3. diabetes mellitus--home glu 150 since he increased eating and reduced insulin doses. Discussed with patient the need f or modest lower of glucose to promote healing from cellulitis, but recognized the harm of hypoglycemia. Recommend improved diet with lower carbohydrate intake and continue present medications 4. seen at [facility] in August with chest pain and treated for cellulitis in ICU. Still having some chest pain, constant aching not clearly worse wi th walking but seems to resolve completely with NTG. To see tile and marble installer to day. 5. JESSICA--tries to use CPAP but mask leaks and he often pulls it off. Still has daytime fatigue. Dealing with [facility] Current Outpatient Medications on File Prior to Visit Medication Sig - gabapentin (NEURONTIN) 300 mg capsule Take 2 capsule s by mouth three times daily for 30 days. - rOPINIRole (REQUIP) 0.5 mg tablet Take 1 tablet by m outh daily at bedtime. - insulin NPH injection (HumuLIN N,NovoLIN N) 32 units subcu taneous before breakfast and 32 units at bedtime - insulin regular human (NOVOLIN R REGUL AR U-100 INSULN) 100 unit/mL injection Inject 17 units Subcutaneously three times daily before meals + sliding scale as directed ( 1 unit for every 50 mg/dL above 150 mg/dL) - latanoprost (XALATAN) 0.005 % ophthalmic solution Use 1 Drop in both eyes three times daily. - colestipol (COLESTID) 1 gram tablet Take 1 g by mouth twic e daily. - carvedilol (COREG) 3.125 mg tablet Take 2 tabl ets by mouth twice daily. for one week starting on 06/20/16 then will be taking 6.25 x 2 da alisha . - Cholecalciferol, Vitamin D3, 50 mcg (2 ,000 unit) cap Take 1 capsule by mouth once daily. - traZODone (DESYREL) 50 mg tablet Take 2 tablets by m outh daily at bedtime. - warfarin (COUMADIN) 3 mg t ablet 3 mg every Mon, Wed, Fri; 6 mg all other days - clopidogrel (PLAVIX) 75 mg tablet Take 1 tablet by mouth o nce daily. - Insulin Syringe-Needle U-100 (BD ULTRAFINE INSULIN) 1 mL 31 gauge x 5/16 1 Each five times daily. - lisinopril (ZESTRIL, PRINIVIL) 20 mg tablet Take 1 tablet by mouth once daily. - furosemide (LASIX) 40 mg tablet Take 1 tablet by mouth twi ce daily. - BIPAP Initiate BiPAP @ 24/18 cm of water with humidificati on. Mask (per patient preference), chin strap, filters, tubing / heated tu jin, heated humidity and lifetime supplies. Dx. JESSICA G47.33 327.23 - fax compliance download to [phone] - flash glucose sensor (FREE[employer]YLE ANITRA 14 DAY SENSOR) kit 1 Each four times daily. - Back Brace misc 1 Device once daily as needed. size large - amiodarone (PACERONE) 200 mg tablet Take 1 tablet by mouth once daily. - spironolactone (ALDACTONE) 25 mg tablet Take 1 table t by mouth once daily. - isosorbide mononitrate ER (IMDUR) 30 mg 24 hr tablet Take 60 mg by mouth once daily. - blood sugar diagnostic ([employer] BLOOD GLUCOSE SYSTEM) test strip Use as instructed to check blood ureña gar 3 to 4 times daily DM: yes Insulin: yes DX:11.9 - ranolazine SR (RANEXA) 1,000 mg Tb12 Take 1 tablet by mout h twice daily. - fenofibrate nanocrystallized (TRICOR) 145 mg tablet Take 1 tablet by mouth once daily. - pantoprazole DR (PROTONIX) 40 mg tablet Take 40 mg by mout h once daily. - Lancets (ONE TOUCH ULTRASO FT LANCETS) lancets Use with [employer] Glucometer as directed - Aspirin 81 mg ORAL Tab Take 1 tablet by mouth once daily . Take with food. - CRESTOR 40 MG TAB Take one(1) tablet daily. - NITROGLYCERIN 0.3 MG SUBLINGUAL TAB Dissolve 0 .4 mg under the tongue. Usual dose for angina is 1 tablet every 5 minutes for maximum of 3 doses in 15 minutes. No current facility-administered medications on file prior t o visit. PAST MEDICAL HISTORY Diagnosis Date - ASHD (arteriosclerotic heart disease) 02/19/2015 - Atrial fibrillation (HCC) 07/03/2011 - Automatic implantable cardiac defibrillator in situ - Petit's esophagus with esophagitis 03/01/2015 - Benign neoplasm of colon - Chronic diarrhea 09/16/2011 - Coronary atherosclerosis of unspecified type of vessel, na tive or graft s/p PR in 1985 - Diverticulosis of colon (without mention of hemorrhage) - Duodenitis without mention of hemorrhage - Dysphagia 03/01/2015 - Facet arthritis of lumbar region 07/14/2017 - GERD (gastroesophageal reflux disease) 06/10/12 - Heart attack (HCC) - Labyrinthitis 02/05/2010 - Neurocardiogenic syncope 03/01/2015 - Obesity 09/16/2011 - JESSICA treated with BiPAP DME [facility] - Other and unspecified hyperlipidemia - Other specified forms of chronic ischemic heart disease - Paroxysmal ventricular tachycardia (HCC) - Snoring - Stroke (HCC) - Tinea of nail 01/13/2011 - Type 2 diabetes mellitus with st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, with long-term current use of insulin (HCC) 06/15/2017 - Unspecified essential hypertension FAMILY HISTORY Problem Relation Age of Onset - Stroke Mother - Heart Mother - Cancer Father prostate - Heart Father - Breast Cancer Sister - Breast Cancer Sister - Diabetes Sister - Diabetes Brother - Diabetes Brother Social History Tobacco Use - Smoking status: Former Smoker Years: 15.00 Types: Cigars Last attempt to quit: 08/12/2007 Years since quittin.2 - Smokeless tobacco: Never Used - Tobacco comment: 2-3 per day Substance Use Topics - Alcohol use: No Frequency: Never Binge frequency: Never - Drug use: No BP 119/72 Pulse 68 Resp 20 Wt 120.7 kg (266 lb) BMI 40.45 kg/m? OBJECTIVE: APPEARANCE Well appearing, alert, in no acute distress, we ll-hydrated, well nourished. and Morbidly obese Cane in R hand NECK Supple, no adenopathy; thyroid symmetric, normal size, no bruits HEART RRR with normal S1 and S2, no murmurs, no gallops, n o JVD appreciated LUNG clear to auscultation EXTREMITIES L foot in boot. Both lower legs have wrappings ASSESSMENT: ASHD--unstable angina hypertension-at goal diabetes mellitus --Aic 7.6 peripheral neuropathy--fair pain control cellulitis lower legs bilat healing L ankle fracture JESSICA--inadequate treatment PLAN: healthy weight losing diet and regular exercise eat less sugar, bread, potato, pasta, rice, corn, corn syrup, saturated fats recheck HbA1c 3 mos increase gabapentin 900 mg three times/day for nerve pain continue wound care at wound center follow up with passenger agent follow up with FEDERICO Benítez MD, III MD 10/27/2019 9:16 AM Signed PLAN: healthy weight losing diet and regular exercise eat less sugar, bread, potato, pasta, rice, corn, corn syrup, saturated fats recheck HbA1c 3 mos increase gabapentin 900 mg three times/day for nerve pain continue wound care at wound center follow up with passenger agent follow up with Seven Valdez III MD Referring Provider: MORGAN VALDEZ III [[id number]] Allergies As of Date: 10/27/2019 Noted Allergy Reaction MORPHINE 02/28/2005 ROCEPHIN (CEFTRIAXONE SODIUM) 06/20/2014 14 - Other: See Com ments Comments: Hot flashes; redness to skin Date Reviewed: 10/27/2019 Reviewed by: [place] ([facility]) JAZZY Carpenter - Fully Assessed Reason for Visit: 6 Month Exam [189] Primary Visit Diagnosis:Type 2 diabetes mellitus with diabetic neuropathy, with long-term current use of insulin ([facility]) [E11.40, Z79.4] Other Visit Diagnoses:Type 2 diabetes mellitus with st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, with long-term current use of insulin ([facility]) [E11.22, N18.3, Z79.4] Ischemic cardiomyopathy [I25.5] ASHD (arteriosclerotic heart disease) [I25.10] Hyperlipidemia LDL goal <100 [E78.5] Stasis dermatitis of both legs [I87.2] Essential hypertension [I10] JESSICA (obstructive sleep apnea) [G47.33] Order(s):HGB A1C [QNNVY2C] Order #: [id number] FUTURE gabapentin (NEURONTIN) 300 mg capsuleTake 3 capsules by mout h three times daily for 30 days.Disp: 270 capsuleRfl: 0 Prescriptions as of 10/27/2019 Sig: GABAPENTIN 300 MG CAPSULE Take 3 capsules by mouth thre* ROPINIROLE 0.5 MG TABLET Take 1 tablet by mouth daily * INSULIN NPH ISOPHANE U-100 HU* 32 units subcutaneous before * INSULIN U-100 REGULAR HUMAN 1* Inject 17 units Subcutaneousl * LATANOPROST 0.005 % EYE DROPS Use 1 Drop in both eyes three* COLESTIPOL 1 GRAM TABLET Take 1 g by mouth twice daily. CARVEDILOL 3.125 MG TABLET Take 2 tablets by mouth twice* CHOLECALCIFEROL (VITAMIN D3) * Take 1 capsule by mouth once * TRAZODONE 50 MG TABLET Take 2 tablets by mouth daily* WARFARIN 3 MG TABLET 3 mg every Mon, Wed, Fri; 6 m* CLOPIDOGREL 75 MG TABLET Take 1 tablet by mouth once d* INSULIN SYRINGE U-100 WITH NE* 1 Each five times daily. LISINOPRIL 20 MG TABLET Take 1 tablet by mouth once d* FUROSEMIDE 40 MG TABLET Take 1 tablet by mouth twice * BIPAP Initiate BiPAP @ 24/18 cm of * FLASH GLUCOSE SENSOR KIT 1 Each four times daily. BACK BRACE 1 Device once daily as needed* AMIODARONE 200 MG TABLET Take 1 tablet by mouth once d* SPIRONOLACTONE 25 MG TABLET Take 1 tablet by mouth once d* ISOSORBIDE MONONITRATE ER 30 * Take 60 mg by mouth once ajay * BLOOD SUGAR DIAGNOSTIC STRIPS Use as instructed to check bl* RANOLAZINE ER 1,000 MG TABLET* Take 1 tablet by mouth twice * FENOFIBRATE NANOCRYSTALLIZED * Take 1 tablet by mouth once d * PANTOPRAZOLE 40 MG TABLET,DEL* Take 40 mg by mouth once ajay * LANCETS Use with Onetouch Glucometer * ASPIRIN 81 MG TABLET Take 1 tablet by mouth once d* CRESTOR 40 MG TABLET Take one(1) tablet daily. 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/2007 Type 2 diabetes mellitus, uncontrolled (HCC) [E*02/16/2008 1 04/21/2014 ESOPHAGEAL REFLUX [K21.9] 03/06/2008 Benign Neoplasm of Colon [D12.6] 02/21/2009 Labyrinthitis [H83.09] 02/05/2010 06/07/2014 Dermatophytosis of nail [B35.1] 06/05/2011 Atrial fibrillation [I48.91] 07/03/2011 Anticoagulated on Coumadin [Z79.01] 07/03/2011 Chronic diarrhea [K52.9] 09/16/2011 06/07/2014 Class 2 severe obesity due to excess calories w*09/16/2011 Stasis dermatitis of both legs [I87.2] 04/05/2013 Foot callus [L84] 10/04/2014 Subsequent non-ST elevation (NSTEMI) myocardial*12/25/2014 Syncope [R55] 02/19/2015 Hyperlipidemia LDL goal <100 [E78.5] 02/19/2015 ASHD (arteriosclerotic heart disease) [I25.10] 02/19/2015 Neurocardiogenic syncope [R55] 03/01/2015 Dysphagia [R13.10] 03/01/2015 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 Balanitis [N48.1] 11/16/2016 Coronary angioplasty status [Z98.61] 11/16/2016 Elevated troponin I level [R79.89] 01/29/2013 More... Family history of cerebrovascular accident (CVA*01/26/2018 History of deep venous thrombosis [Z86.718] 01/26/2018 History of non-ST elevation myocardial infarcti*01/26/2018 Ischemic cardiomyopathy [I25.5] 11/20/2017 Leukocytosis [D72.829] 01/29/2013 More... JESSICA (obstructive sleep apnea) [G47.33] 07/26/2018 RLS (restless legs syndrome) [G25.81] 07/28/2018 Localized swelling, mass and lump, neck [R22.1] 07/28/2018 Acute on chronic systolic congestive heart fail*12/17/2018 Other instructions from your clinician: PLAN: healthy weight losing diet and regular exercise eat less sugar, bread, potato, pasta, rice, corn, corn syrup , saturated fats recheck HbA1c 3 mos increase gabapentin 900 mg three times/day for nerve pain continue wound care at wound center follow up with passenger agent follow up with Seven Valdez III MD Prescriptions ordered this encounter Disp Refills Start End GABAPENTIN 300 MG CAPSULE 270 * 0 10/27/2019 11/26/2019 Route: ORAL Sig: Take 3 capsules by mouth three times daily for 30 days. Medications Discontinued During This Encounter gabapentin (NEURONTIN) 300 mg capsule 180 * 0 10/25/201910/26 Cmt: dose increase Route: ORAL Sig: Take 2 capsules by mouth three times daily for 30 days. Disc: Reason for discontinue is not on file. Encounter Status:Closed by MORGAN VALDEZ III, MD on 10/27/19 cnpn on 2019-10-26 CNPN Telephone ([facility]) Normal 10-26-2019 [facility] LOVELY DEVI ([id number]) 1945 M [facility] Time Provider Department ([id number]) 10/26/19 BLOSSOM (PHARMACIST)BRIJESH During your visit today, we recorded the following informati on about you: ANSHUL SEBASTIAN 10/26/2019 4:37 PM Signed Patient was due to test INR today will continue to monitor f or results. Joleen Cerrato, PharmD Pharmacy Antico[facility] ANSHUL COLIN 10/27/2019 9:42 AM Signed [facility] Lovely Devi is a 74 year old year old male patient being evaluated today for anticoagulation Telemanagement visit. Patient is currently on the following anticoagulant: Warfarin Labs PT INR (no units) Date Value 11/26/2018 Test sent to [facility]. 10/16/2017 1.8 01/16/2017 Test sent to [facility]. INR (POCT) (no units) Date Value 02/21/2019 2.9 01/24/2019 2.9 01/17/2019 3.2 INR Home CoaguChek (no units) Date Value 10/26/2019 2.8 10/12/2019 2.2 09/28/2019 3.0 Indication for Warfarin: Paroxysmal atrial fibrillation (hcc ) Anticoagulated on coumadin Assessment: ? INR result of 2.8 is therapeutic Plan: ? Advised patient to continue current weekly dose ? Next home INR check scheduled on 11/09/2019 ? LVM for patient with above information and advised to call PAC at [phone] if any questions or changes to report. PRIYANKA BAUER PHARMACIST Clinical Pharmacist, Pharmacy Antico[facility] Pharmacy [facility] Pager: [phone] Allergies As of Date: 10/26/2019 Noted Allergy Reaction MORPHINE 02/28/2005 ROCEPHIN (CEFTRIAXONE SODIUM) 06/20/2014 14 - Other: See Com ments Comments: Hot flashes; redness to skin Date Reviewed: 10/06/2019 Reviewed by: Kath (Dnp.Revenue Stamp Clerk) SHANELLE Nielsen.ELBA - Fully Assesse d Reason for Visit: Anticoagulation Telephone Fu [148] Cmt: Home INR result Reason For Visit History Recorded Primary Visit Diagnosis:Anticoagulated on Coumadin [Z79.01] Other Visit Diagnosis:Paroxysmal atrial fibrillation (HCC) [ I48.0] Prescriptions as of 10/26/2019 Sig: X GABAPENTIN 300 MG CAPSULE Take 2 capsules by mouth thre* ROPINIROLE 0.5 MG TABLET Take 1 tablet by mouth daily * INSULIN NPH ISOPHANE U-100 HU* 32 units subcutaneous before * INSULIN U-100 REGULAR HUMAN 1* Inject 17 units Subcutaneousl * LATANOPROST 0.005 % EYE DROPS Use 1 Drop in both eyes three* COLESTIPOL 1 GRAM TABLET Take 1 g by mouth twice daily. CARVEDILOL 3.125 MG TABLET Take 2 tablets by mouth twice* CHOLECALCIFEROL (VITAMIN D3) * Take 1 capsule by mouth once * TRAZODONE 50 MG TABLET Take 2 tablets by mouth daily* WARFARIN 3 MG TABLET 3 mg every Mon, Wed, Fri; 6 m* CLOPIDOGREL 75 MG TABLET Take 1 tablet by mouth once d* INSULIN SYRINGE U-100 WITH NE* 1 Each five times daily. LISINOPRIL 20 MG TABLET Take 1 tablet by mouth once d* FUROSEMIDE 40 MG TABLET Take 1 tablet by mouth twice * BIPAP Initiate BiPAP @ 24/18 cm of * FLASH GLUCOSE SENSOR KIT 1 Each four times daily. BACK BRACE 1 Device once daily as needed* AMIODARONE 200 MG TABLET Take 1 tablet by mouth once d* SPIRONOLACTONE 25 MG TABLET Take 1 tablet by mouth once d* ISOSORBIDE MONONITRATE ER 30 * Take 60 mg by mouth once ajay * BLOOD SUGAR DIAGNOSTIC STRIPS Use as instructed to check bl* RANOLAZINE ER 1,000 MG TABLET* Take 1 tablet by mouth twice * FENOFIBRATE NANOCRYSTALLIZED * Take 1 tablet by mouth once d * PANTOPRAZOLE 40 MG TABLET,DEL* Take 40 mg by mouth once ajay * LANCETS Use with Onetouch Glucometer * ASPIRIN 81 MG TABLET Take 1 tablet by mouth once d* CRESTOR 40 MG TABLET Take one(1) tablet daily. 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/2007 Type 2 diabetes mellitus, uncontrolled (HCC) [E*02/16/2008 1 04/21/2014 ESOPHAGEAL REFLUX [K21.9] 03/06/2008 Benign Neoplasm of Colon [D12.6] 02/21/2009 Labyrinthitis [H83.09] 02/05/2010 06/07/2014 Dermatophytosis of nail [B35.1] 06/05/2011 Atrial fibrillation [I48.91] 07/03/2011 Anticoagulated on Coumadin [Z79.01] 07/03/2011 Chronic diarrhea [K52.9] 09/16/2011 06/07/2014 Class 2 severe obesity due to excess calories w*09/16/2011 Stasis dermatitis of both legs [I87.2] 04/05/2013 Foot callus [L84] 10/04/2014 Subsequent non-ST elevation (NSTEMI) myocardial*12/25/2014 Syncope [R55] 02/19/2015 Hyperlipidemia LDL goal <100 [E78.5] 02/19/2015 ASHD (arteriosclerotic heart disease) [I25.10] 02/19/2015 Neurocardiogenic syncope [R55] 03/01/2015 Dysphagia [R13.10] 03/01/2015 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 Balanitis [N48.1] 11/16/2016 Coronary angioplasty status [Z98.61] 11/16/2016 Elevated troponin I level [R79.89] 01/29/2013 More... Family history of cerebrovascular accident (CVA*01/26/2018 History of deep venous thrombosis [Z86.718] 01/26/2018 History of non-ST elevation myocardial infarcti*01/26/2018 Ischemic cardiomyopathy [I25.5] 11/20/2017 Leukocytosis [D72.829] 01/29/2013 More... JESSICA (obstructive sleep apnea) [G47.33] 07/26/2018 RLS (restless legs syndrome) [G25.81] 07/28/2018 Localized swelling, mass and lump, neck [R22.1] 07/28/2018 Acute on chronic systolic congestive heart fail*12/17/2018 Encounter Status:Closed by LIZETTE (PHARMACIST)PRIYANKA on yoandy on 2019-10-24 CNPN Telephone ([facility]) Normal 10-24-2019 [facility] LOVELY DEVI ([id number]) 1945 M [facility] Date Time Provider Department ([id number]) 10/24/19 KEMI (PHARMACIST)DENITA During your visit today, we recorded the following informati on about you: Anshul Hancock 10/24/2019 9:38 AM Signed Received patient's completed patient section of the [employer] res PAP application. Completed prescriber section and wi provider to PCP for review and signature of orders. Medications pursuing through Where PAP: ? Basaglar (to replace insulin NPH) ? Humalog (to replace insulin R) Once PCP sign orders, ok to fax to Where ( ). Please place in pharmacy mailbox for record keeping and follow up. Thanks! Denita Thorpe PharmD Primary Care Clinical Pharmacist Oziel [facility] Linwood Carpenter CMA, MA 10/24/2019 10:19 AM Signed Forms placed on PCP's desk. AUDI Rowan III MD 10/24/2019 1:10 PM Signed form has been signed FEDERICO Alatorre MD, CMA, [place] 10/24/2019 1:47 PM Signed Form faxed and placed in pharmacist mail slot. Linwood Carpenter CMA Allergies As of Date: 10/24/2019 Noted Allergy Reaction MORPHINE 02/28/2005 ROCEPHIN (CEFTRIAXONE SODIUM) 06/20/2014 14 - Other: See Com ments Comments: Hot flashes; redness to skin Date Reviewed: 10/06/2019 Reviewed by: Kath (Dnp.Revenue Stamp Clerk) SHANELLE Nielsen.ROLL TESTER - Fully Assesse d Reason for Visit: Patient Assistance [[id number]] Cmt: Humalog and Basaglar Prescriptions as of 10/24/2019 Sig: ROPINIROLE 0.5 MG TABLET Take 1 tablet by mouth daily * GABAPENTIN 300 MG CAPSULE Take 1 capsule by mouth three* INSULIN NPH ISOPHANE U-100 HU* 32 units subcutaneous before * INSULIN U-100 REGULAR HUMAN 1* Inject 17 units Subcutaneousl * LATANOPROST 0.005 % EYE DROPS Use 1 Drop in both eyes three* COLESTIPOL 1 GRAM TABLET Take 1 g by mouth twice daily. CARVEDILOL 3.125 MG TABLET Take 2 tablets by mouth twice* CHOLECALCIFEROL (VITAMIN D3) * Take 1 capsule by mouth once * TRAZODONE 50 MG TABLET Take 2 tablets by mouth daily* WARFARIN 3 MG TABLET 3 mg every Mon, Wed, Fri; 6 m* CLOPIDOGREL 75 MG TABLET Take 1 tablet by mouth once d* INSULIN SYRINGE U-100 WITH NE* 1 Each five times daily. LISINOPRIL 20 MG TABLET Take 1 tablet by mouth once d* FUROSEMIDE 40 MG TABLET Take 1 tablet by mouth twice * BIPAP Initiate BiPAP @ 24/18 cm of * FLASH GLUCOSE SENSOR KIT 1 Each four times daily. BACK BRACE 1 Device once daily as needed* AMIODARONE 200 MG TABLET Take 1 tablet by mouth once d* SPIRONOLACTONE 25 MG TABLET Take 1 tablet by mouth once d* ISOSORBIDE MONONITRATE ER 30 * Take 60 mg by mouth once ajay * BLOOD SUGAR DIAGNOSTIC STRIPS Use as instructed to check bl* RANOLAZINE ER 1,000 MG TABLET* Take 1 tablet by mouth twice * FENOFIBRATE NANOCRYSTALLIZED * Take 1 tablet by mouth once d * PANTOPRAZOLE 40 MG TABLET,DEL* Take 40 mg by mouth once ajay * LANCETS Use with Onetouch Glucometer * ASPIRIN 81 MG TABLET Take 1 tablet by mouth once d* CRESTOR 40 MG TABLET Take one(1) tablet daily. NITROGLYCERIN 0.3 MG SUBLINGU* Dissolve 0.4 mg under the ton * Problem List As Of Date 10/24/2019 Noted Resolved CARDIOMEGALY [I51.7] Duodenitis without mention of hemorrhage [K29.8* 06/07/2014 Essential hypertension [I10] PAROX VENTRIC TACHYCARD [I47.2] Automatic implantable cardioverter-defibrillato* BPH with obstruction/lower urinary tract sympto*09/16/2007 Type 2 diabetes mellitus, uncontrolled (HCC) [E*02/16/2008 1 04/21/2014 ESOPHAGEAL REFLUX [K21.9] 03/06/2008 Benign Neoplasm of Colon [D12.6] 02/21/2009 Labyrinthitis [H83.09] 02/05/2010 06/07/2014 Dermatophytosis of nail [B35.1] 06/05/2011 Atrial fibrillation [I48.91] 07/03/2011 Anticoagulated on Coumadin [Z79.01] 07/03/2011 Chronic diarrhea [K52.9] 09/16/2011 06/07/2014 Class 2 severe obesity due to excess calories w*09/16/2011 Stasis dermatitis of both legs [I87.2] 04/05/2013 Foot callus [L84] 10/04/2014 Subsequent non-ST elevation (NSTEMI) myocardial*12/25/2014 Syncope [R55] 02/19/2015 Hyperlipidemia LDL goal <100 [E78.5] 02/19/2015 ASHD (arteriosclerotic heart disease) [I25.10] 02/19/2015 Neurocardiogenic syncope [R55] 03/01/2015 Dysphagia [R13.10] 03/01/2015 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 Balanitis [N48.1] 11/16/2016 Coronary angioplasty status [Z98.61] 11/16/2016 Elevated troponin I level [R79.89] 01/29/2013 More... Family history of cerebrovascular accident (CVA*01/26/2018 History of deep venous thrombosis [Z86.718] 01/26/2018 History of non-ST elevation myocardial infarcti*01/26/2018 Ischemic cardiomyopathy [I25.5] 11/20/2017 Leukocytosis [D72.829] 01/29/2013 More... JESSICA (obstructive sleep apnea) [G47.33] 07/26/2018 RLS (restless legs syndrome) [G25.81] 07/28/2018 Localized swelling, mass and lump, neck [R22.1] 07/28/2018 Acute on chronic systolic congestive heart fail*12/17/2018 Encounter Status:Closed by KEMI (PHARMACIST)DENITA on cnpn on 2019-10-17 CNPN Telephone ([facility]) Normal 10-17-2019 [facility] LOVELY DEVI ([id number]) 1945 [facility] Date Time Provider Department ([id number]) 10/17/19 MORGAN VALDEZ III FAMPWS During your visit today, we recorded the following informati on about you: Cindi Eastman LPN 10/17/2019 3:27 PM Signed Melany with [facility] called and needed c larification on Insulin changes. Faxed Denita Thorpe's office note with the changes. Done. Cindi Eastman LPN Allergies As of Date: 10/17/2019 Noted Allergy Reaction MORPHINE 02/28/2005 ROCEPHIN (CEFTRIAXONE SODIUM) 06/20/2014 14 - Other: See Com ments Comments: Hot flashes; redness to skin Date Reviewed: 10/06/2019 Reviewed by: Kath (Faiza.Elba) SHANELLE Nielsen.ELBA - Fully Assesse d Reason for Visit: Clarification on insulin [Other] Prescriptions as of 10/17/2019 Sig: GABAPENTIN 300 MG CAPSULE Take 1 capsule by mouth three* INSULIN NPH ISOPHANE U-100 HU* 32 units subcutaneous before * INSULIN U-100 REGULAR HUMAN 1* Inject 17 units Subcutaneousl * LATANOPROST 0.005 % EYE DROPS Use 1 Drop in both eyes three* COLESTIPOL 1 GRAM TABLET Take 1 g by mouth twice daily. CARVEDILOL 3.125 MG TABLET Take 2 tablets by mouth twice* CHOLECALCIFEROL (VITAMIN D3) * Take 1 capsule by mouth once * TRAZODONE 50 MG TABLET Take 2 tablets by mouth daily* WARFARIN 3 MG TABLET 3 mg every Mon, Wed, Fri; 6 m* CLOPIDOGREL 75 MG TABLET Take 1 tablet by mouth once d* INSULIN SYRINGE U-100 WITH NE* 1 Each five times daily. LISINOPRIL 20 MG TABLET Take 1 tablet by mouth once d* FUROSEMIDE 40 MG TABLET Take 1 tablet by mouth twice * BIPAP Initiate BiPAP @ 24/18 cm of * FLASH GLUCOSE SENSOR KIT 1 Each four times daily. BACK BRACE 1 Device once daily as needed* AMIODARONE 200 MG TABLET Take 1 tablet by mouth once d* SPIRONOLACTONE 25 MG TABLET Take 1 tablet by mouth once d* ISOSORBIDE MONONITRATE ER 30 * Take 60 mg by mouth once ajay * BLOOD SUGAR DIAGNOSTIC STRIPS Use as instructed to check bl* RANOLAZINE ER 1,000 MG TABLET* Take 1 tablet by mouth twice * FENOFIBRATE NANOCRYSTALLIZED * Take 1 tablet by mouth once d * PANTOPRAZOLE 40 MG TABLET,DEL* Take 40 mg by mouth once ajay * LANCETS Use with Onetouch Glucometer * ASPIRIN 81 MG TABLET Take 1 tablet by mouth once d* CRESTOR 40 MG TABLET Take one(1) tablet daily. NITROGLYCERIN 0.3 MG SUBLINGU* Dissolve 0.4 mg under the ton * Problem List As Of Date 10/17/2019 Noted Resolved CARDIOMEGALY [I51.7] Duodenitis without mention of hemorrhage [K29.8* 06/07/2014 Essential hypertension [I10] PAROX VENTRIC TACHYCARD [I47.2] Automatic implantable cardioverter-defibrillato* BPH with obstruction/lower urinary tract sympto*09/16/2007 Type 2 diabetes mellitus, uncontrolled (HCC) [E*02/16/2008 1 04/21/2014 ESOPHAGEAL REFLUX [K21.9] 03/06/2008 Benign Neoplasm of Colon [D12.6] 02/21/2009 Labyrinthitis [H83.09] 02/05/2010 06/07/2014 Dermatophytosis of nail [B35.1] 06/05/2011 Atrial fibrillation [I48.91] 07/03/2011 Anticoagulated on Coumadin [Z79.01] 07/03/2011 Chronic diarrhea [K52.9] 09/16/2011 06/07/2014 Class 2 severe obesity due to excess calories w*09/16/2011 Stasis dermatitis of both legs [I87.2] 04/05/2013 Foot callus [L84] 10/04/2014 Subsequent non-ST elevation (NSTEMI) myocardial*12/25/2014 Syncope [R55] 02/19/2015 Hyperlipidemia LDL goal <100 [E78.5] 02/19/2015 ASHD (arteriosclerotic heart disease) [I25.10] 02/19/2015 Neurocardiogenic syncope [R55] 03/01/2015 Dysphagia [R13.10] 03/01/2015 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 Balanitis [N48.1] 11/16/2016 Coronary angioplasty status [Z98.61] 11/16/2016 Elevated troponin I level [R79.89] 01/29/2013 More... Family history of cerebrovascular accident (CVA*01/26/2018 History of deep venous thrombosis [Z86.718] 01/26/2018 History of non-ST elevation myocardial infarcti*01/26/2018 Ischemic cardiomyopathy [I25.5] 11/20/2017 Leukocytosis [D72.829] 01/29/2013 More... JESSICA (obstructive sleep apnea) [G47.33] 07/26/2018 RLS (restless legs syndrome) [G25.81] 07/28/2018 Localized swelling, mass and lump, neck [R22.1] 07/28/2018 Acute on chronic systolic congestive heart fail*12/17/2018 Encounter Status:Closed by CINDI EASTMAN LPN on 10/17/19 vitamin d 25 hydroxy on 2019-10-14 Vitamin D 25 Hydroxy 24.5 31.0-80.0 ng/mL Low 0 [facility] ([id number]) Comment: Result Comment: Classificati on of 25 [place] Vitamin D status: Insufficiency/Moderate Defic iency: < or = 30 ng/mL Sufficiency/Optimal Levels: 31 to 80 ng/mL Toxicity: > 100 ng/mL Test performed by chemilumin escent immunoassay. Performed By: #### HBA1C, CM P, LIPB, VITD ####[facility] [address] [place], [place] [phone] lipid panel, basic on 2019-10-14 Cholesterol [Mass/Vol] 123 <200 mg/dL Normal 020 [facility] ([id number]) Comment: Result Comment: <200 mg/dL, Desirable 200-239 mg/dL, Borderline hi gh >239 mg/dL, High Performed By: #### HBA1C, CM P, LIPB, VITD ####[facility] [address] [place], [place] [phone] Cholesterol in HDL [Mass/Vol] 35 >39 mg/dL Low 10-14-2019 [facility] ([id number]) Comment: Result Comment: 40-59 mg/dL, Acceptable >59 mg/dL, High: Negative ri sk factor for coronary heart disease <40 mg/dL, Low: Positive ris k factor for coronary heart disease Performed By: #### HBA1C, CM P, LIPB, VITD ####[facility] [address] [place], [place] [phone] Cholesterol in LDL 53 <100 mg/dL Normal 10-14-2019 [facility] [Mass/Vol] [facility] ([id number]) Comment: Result Comment: <100 mg/dL, Optimal 100-129 mg/dL, Near optimal/ above optimal 130-159 mg/dL, Borderline hi gh 160-189 mg/dL, High >189 mg/dL, Very high Secondary prevention optimal LDL Cholesterol levels are recommended to be < 70 mg/dL Performed By: #### HBA1C, CM P, LIPB, VITD ####[facility] [place], [place] [phone] Fasting Time 12 hrs Normal 10-14-2019 [facility] ([id number]) Comment: Performed By: #### HBA1C, CM P, LIPB, VITD ####[place] [address] [place], [place] [phone] LDL:HDL Ratio 1.51 <2.54 Normal 10-14-2019 [facility] ([id number]) Comment: Result Comment: Reference: 1. National Cholesterol Educ ation Program ATP III Guideline At-A-Glance Quick Desk Reference: National Heart, Lung, and Blood [place]. National Institutes of Health. 2001: NIH Publication No. 01-3305. 2. An International Atherosc lerosis Society position paper: global recommendations for the management of dyslipidemia: executive summary, Atherosclerosis. 2014: 232(2):410-413. Performed By: #### HBA1C, CM P, LIPB, VITD ####[facility] [address] [place], [place] [phone] Non HDL Cholesterol 88 <130 mg/dL Normal 10-14-2019 [facility] ([id number]) Comment: Result Comment: <130 mg/dL, Optimal 130-159 mg/dL, Near optimal/ above optimal 160-189 mg/dL, Borderline hi gh 190-219 mg/dL, High >219 mg/dL, Very high Secondary prevention optimal non HDL Cholesterol levels are recommended to be < 100 mg/dL Performed By: #### HBA1C, CM P, LIPB, VITD ####[facility] [address] [facility] [place] [place] [phone] TC:HDL Ratio 3.51 <5.10 Normal 10-14-2019 [facility] ([id number]) Comment: Performed By: #### HBA1C, CM P, LIPB, VITD ####[place] [address] [place], [place] [phone] Triglyceride [Mass/Vol] 177 <150 mg/dL High 2019 [facility] ([id number]) Comment: Result Comment: <150 mg/dL, Normal 150-199 mg/dL, Borderline hi gh 200-499 mg/dL, High >499 mg/dL, Very high Performed By: #### HBA1C, CM P, LIPB, VITD ####[place] [address] [place], [place] [phone] VLDL Cholesterol 35 <30 mg/dL High 10-14-2019 [facility] ([id number]) Comment: Performed By: #### HBA1C, CM P, LIPB, VITD ####[place] [address] [place], [place] [phone] hemoglobin a1c on 2 HbA1c (Bld) [Mass fraction] 171 mg/dL Normal [facility] (05419) Comment: Result Comment: eAG: (Estima devin average glucose) is a calculated value from HgbA1c and is bank representative of the average blood glucose level in the last 2-3 month period. Performed By: #### HBA1C, CM P, LIPB, VITD ####[place] [address] [place], [place] [phone] HbA1c (Bld) [Mass fraction] 7.6 4.3-5.6 % High [facility] (43048) Comment: Result Comment: [place] Dominique betes Association guidelines indicate that patients with HgbA1c in the range 5.7-6.4% are at increased risk for development of diabetes, and intervention by lifestyle modification may be beneficial. HgbA1c greater o r equal to 6.5% is considered diagnostic of diabetes. Performed By: #### HBA1C, CM P, LIPB, VITD ####[facility] [address] [place] [phone] comp metabolic panel on 2019-10-14 Albumin [Mass/Vol] 4.1 3.9-4.9 g/dL Normal 10-14-2019 [facility] ([id number]) Comment: Performed By: #### HBA1C, CM P, LIPB, VITD ####[facility] [address] [place] [phone] ALP [Catalytic activity/Vol] 55 38-113 U/L Normal 0 10-14-2019 [facility] ([id number]) Comment: Performed By: #### HBA1C, CM P, LIPB, VITD ####[place] [address] [place] [phone] ALT [Catalytic activity/Vol] 26 10-54 U/L Normal 0 10-14-2019 [facility] ([id number]) Comment: Performed By: #### HBA1C, CM P, LIPB, VITD ####[place] [address] [place], [place] [phone] Anion gap [Moles/Vol] 10 9-18 mmol/L Normal 10-14-19 [facility] (40460) Comment: Performed By: #### HBA1C, CM P, LIPB, VITD ####[facility] [address] [place] [phone] AST [Catalytic activity/Vol] 23 14-40 U/L Normal 0 10-14-2019 [facility] (07014) Comment: Performed By: #### HBA1C, CM P, LIPB, VITD ####[facility] [address] [place], [place] [phone] Bilirubin [Mass/Vol] 0.4 0.2-1.3 mg/dL Normal 0 [facility] (20555) Comment: Performed By: #### HBA1C, CM P, LIPB, VITD ####[facility] [address] [place], [place] [phone] Calcium [Mass/Vol] 9.0 8.5-10.2 mg/dL Normal 10-14-2019 [facility] (41214) Comment: Performed By: #### HBA1C, CM P, LIPB, VITD ####[facility] [address] [place], [place] [phone] Chloride [Moles/Vol] 101 97-105 mmol/L Normal 0 [facility] (49942) Comment: Performed By: #### HBA1C, CM P, LIPB, VITD ####[place] [address] [place], [place] [phone] CO2 [Moles/Vol] 24 22-30 mmol/L Normal 10-14-2019 [facility] (42066) Comment: Performed By: #### HBA1C, CM P, LIPB, VITD ####[facility] [place], [place] [phone] Creatinine [Mass/Vol] 1.30 0.73-1.22 mg/dL High 10-14-19 20 [facility] (70025) Comment: Performed By: #### HBA1C, CM P, LIPB, VITD ####[facility] [address] [place], [place] [phone] eGFR- Amer. >60 Normal 10-14-2019 [facility] (55250) Comment: Performed By: #### HBA1C, CM P, LIPB, VITD ####[facility] [place], [place] [phone] GFR/1.73 sq M predicted among 54 . Normal 10-14-2019 [facility] non-blacks MDRD (S/P/Bld) [Vol (30250) rate/Area] Comment: Result Comment: eGFR (Estima devin GFR) Units of measure: mL/min/1.73 meters squared eGFR is derived from the ree xpressed MDRD Study equation using the following parameters: serum creatinine, age, gender and race. The creatinine assay has been calibrated to be traceable to IDMS. An eGFR <60 mL/min/1.73m2 fo r >3 months is consistent with chronic kidney disease. Refer to KDOQI guidelines for clinical interpretation. In patients with unstable re nal function, e.g. those with acute kidney injury, the eGFR may not accurately reflect actual GFR. Performed By: #### HBA1C, CM P, LIPB, VITD ####[facility] [address], [place] [phone] Glucose [Mass/Vol] 197 74-99 mg/dL High 10-14-2019 [facility] (11971) Comment: Result Comment: The [place] Diabetes Association (ADA) provides guidance for cutoff values for fasting glucose and random glucose. The ADA defines fasting as no caloric intake for at least 8 hours. Fas ting plasma glucose results between 100 to 125 mg/dL indicate increased risk for diabetes (prediabetes). Fasting plasma glucose resul ts greater than or equal to 126 mg/dL meet the criteria for diagnosis of diabetes. In the absence of unequivocal hyperglycemia, results should be confirmed by repeat testing. In a patient with classic s ymptoms of hyperglycemia or hyperglycemic crisis, random plasma glucose results greater than or equal to 200 mg/dL meet the criteria for diagnosis of diabetes. Reference: Standards of [facility] Care in Diabetes 2016, [place] Diabetes Association. Diabetes Care. 2016.39(Suppl 1). Performed By: #### HBA1C, CM P, LIPB, VITD ####[facility] [address] [place], [place] [phone] Potassium [Moles/Vol] 4.6 3.7-5.1 mmol/L Normal 10-14-19 [facility] (23792) Comment: Performed By: #### HBA1C, CM P, LIPB, VITD ####[facility] [address] [place], [place] [phone] Protein [Mass/Vol] 6.0 6.3-8.0 g/dL Low 10-14-2019 [facility] (78323) Comment: Performed By: #### HBA1C, CM P, LIPB, VITD ####[facility] [address] [place], [place] [phone] Sodium [Moles/Vol] 135 136-144 mmol/L Low 10-14-2019 [facility] (81642) Comment: Performed By: #### HBA1C, CM P, LIPB, VITD ####[facility] [address] [place], [place] [phone] Urea nitrogen [Mass/Vol] 27 9-24 mg/dL High 10-13 [facility] (30873) Comment: Performed By: #### HBA1C, CM P, LIPB, VITD ####[facility] [place], [place] [phone] albumin/creat ratio on 2019-10-14 Albumin Urine Random <12.0 Normal 0 [facility] (16839) Comment: Performed By: #### UACR #### [facility], [place] [phone] Albumin/Creat Ratio Not calculated <30 Normal 10-13 [facility] (88354) Comment: Performed By: #### UACR #### [facility] [address], [place] [phone] Creatinine,Urine,Ran 63.4 20-300 mg/dL Normal 0 [facility] (30408) Comment: Performed By: #### UACR #### [facility] [address], [place] [phone] progress on 2019-09 PROGRESS HNO ID: [id number] Normal 10-12-2019 [facility] Author: Denita Thorpe (Pharmacist) [place] ([id number]) Service: ? Author Type: Pharmacist Type: Progress Notes Filed: 10/13/2019 5:40 PM Note Text: [place] law requires the collaborative practice agreement to be initiated by a physician in order to provide medication titration. Thus, pharmacy will only provide medication recommendations and counseling today , unless recommendations are approved verbally by the consulting prov ider. REASON FOR CONSULT: DM GOALS: A1c < 8% CONSULTING PROVIDER: ELBA Garsia Date of Consult: 09/16/2019 Lovely Devi is a 73 year old male was last seen b y PCP, Dr. Morgan Valdez III MD on 04/28/2019. Last seen by ELBA Nielsen on 10/06/2019. Subjective: Patient is presenting today for initial pharmacotherapy [facility] appointment for diabetes. At 09/15 ROLL TESTER appt, insulin NPH dose decreased pt was consulted to pharmacy due to increased hypoglycemia. At last ROLL TESTER visit gabapentin was initiated and empiric treatment for UTI was s tarted with nitrofurantoin monohydrate. INTERIM HISTORY: States DM first diagnosed at least >10 years ago. He used to be on Lantus and Humalog but those were expensive so he has switched to insulin NPH and insulin R, Relion brand vials fr om [facility]. Reports in the past having lower BG in the 50s, states it do es not happen often but when it does he usually needs to treat it twice to improve the blood sugar. Reports does not really watch what he eats. He has [employer] CGM. Does not have [employer] accounts , states he is not too tech savvy but that his daughter could help him uplo ad the CGM data from home. Current DM Medications: Insulin lispro 20 units three times daily with meals - repor ts taking insulin R 20 units three times daily with Insulin NPH 30 units twice daily - pt reports taking differe ntly: 32 units twice daily Preventative Medications: ? On NIYA/ARB: Yes ? On Statin: Yes ? On ASA: Yes ROS: ? Patient denies CP, SOB, FAITH, blurred vision, dizziness or l ightheadedness ? Patient denies symptoms of hypoglycemia (sweating, anxiety , palpitations, hunger, and tremor) ? Patient denies symptoms of hyperglycemia (polyuria, polydi psia, polyphagia) ? Patient denies potential medication adverse effects MEDICATIONS: ? Pill bottles are not present. ? Adherence: denies missed doses. ? Pharmacy: [facility] ? Rx coverage: Medicare ? Affordability: Gutierrez of brand name insulins is costly on i nsurance, on Relion brand insulin vials ? 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 Esophageal Reflux Benign Neoplasm of Colon Dermatophytosis of Nail Atrial Fibrillation (Hcc) Anticoagulated On Coumadin Class 2 Severe Obesity Due to Excess Calories With Serious C omorbidity and Body Mass Index (Bmi) of 38.0 to 38.9 in Adult (Hcc) Stasis Dermatitis of Both Legs Foot Callus Subsequent Non-St Elevation (Nstemi) Myocardial Infarction W ithin 4 Weeks of Initial Infarction (Hcc) Syncope Hyperlipidemia Ldl Goal <100 Ashd (Arteriosclerotic Heart Disease) Neurocardiogenic Syncope 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 , With Long-Term Current Use of Insulin (Hcc) Facet Arthritis of Lumbar Region Adenopathy Atrial Flutter (Hcc) Balanitis Coronary Angioplasty Status Elevated Troponin I Level Family History of Cerebrovascular Accident (Cva) History of Deep Venous Thrombosis History of Non-St Elevation Myocardial Infarction (Nstemi) Ischemic Cardiomyopathy Leukocytosis Jessica (Obstructive Sleep Apnea) Rls (Restless Legs Syndrome) Localized Swelling, Mass and Lump, Neck Acute On Chronic Systolic Congestive Heart Failure (Hcc) PAST MEDICAL HISTORY Diagnosis Date - ASHD (arteriosclerotic heart disease) 02/19/2015 - Atrial fibrillation (HCC) 07/03/2011 - Automatic implantable cardiac defibrillator in situ - Petit's esophagus with esophagitis 03/01/2015 - Benign neoplasm of colon - Chronic diarrhea 09/16/2011 - Coronary atherosclerosis of unspecified type of vessel, na tive or graft s/p PR in 1985 - Diverticulosis of colon (without mention of hemorrhage) - Duodenitis without mention of hemorrhage - Dysphagia 03/01/2015 - Facet arthritis of lumbar region 07/14/2017 - GERD (gastroesophageal reflux disease) 06/10/12 - Heart attack (HCC) - Labyrinthitis 02/05/2010 - Neurocardiogenic syncope 03/01/2015 - Obesity 09/16/2011 - JESSICA treated with BiPAP DME [employer] - Other and unspecified hyperlipidemia - Other specified forms of chronic ischemic heart disease - Paroxysmal ventricular tachycardia (HCC) - Snoring - Stroke (HCC) - Tinea of nail 01/13/2011 - Type 2 diabetes mellitus with stage 3 chronic kidney disea se, with long-term current use of insulin (HCC) 06/15/2017 - Unspecified essential hypertension ALLERGIES Allergen Reactions - Morphine - Rocephin [Ceftriaxo* Other: See Comments Hot flashes; redness to skin Current Outpatient Medications Medication Sig - nitrofurantoin monohydrate and macrocrystal (MACROBID) 100 mg capsule Take 1 capsule by mouth twice daily with meals for 7 days. - gabapentin (NEURONTIN) 300 mg capsule Take 1 capsule by mo uth daily at bedtime for 30 days. - latanoprost (XALATAN) 0.005 % ophthalmic solution Use 1 Dr op in both eyes three times daily. - colestipol (COLESTID) 1 gram tablet Take 1 g by mouth twic e daily. - insulin lispro (HUMALOG U-100 INSULIN) 100 unit/mL injecti on 20 units with breakfast, 20 units at lunch, and 20 units with supper. - carvedilol (COREG) 3.125 mg tablet Take 2 tablets by mouth twice daily. for one week starting on 06/20/16 then will be taking 6.25 x 2 daily . - insulin NPH injection (HumuLIN N,NovoLIN N) 30 units subcu taneous once daily before breakfast and 32 units at bedtime - Cholecalciferol, Vitamin D3, 50 mcg (2,000 unit) cap Take 1 capsule by mouth once daily. - traZODone (DESYREL) 50 mg tablet Take 2 tablets by mouth d aily at bedtime. - warfarin (COUMADIN) 3 mg tablet 3 mg every Mon, Wed, Fri; 6 mg all other days - clopidogrel (PLAVIX) 75 mg tablet Take 1 tablet by mouth o nce daily. - Insulin Syringe-Needle U-100 (BD ULTRAFINE INSULIN) 1 mL 3 1 gauge x /16 1 Each five times daily. - lisinopril (ZESTRIL, PRINIVIL) 20 mg tablet Take 1 tablet by mouth once daily. - furosemide (LASIX) 40 mg tablet Take 1 tablet by mouth twi ce daily. - BIPAP Initiate BiPAP @ 24/18 cm of water with humidificati on. Mask (per patient preference), chin strap, filters, tubing / heated tu jin, heated humidity and lifetime supplies. Dx. JESSICA G47.33 327.23 - fax compliance download to [phone] - flash glucose sensor (FREESTYLE ANITRA 14 DAY SENSOR) kit 1 Each four times daily. - Back Brace misc 1 Device once daily as needed. size large - amiodarone (PACERONE) 200 mg tablet Take 1 tablet by mouth once daily. - spironolactone (ALDACTONE) 25 mg tablet Take 1 tablet by m outh once daily. - isosorbide mononitrate ER (IMDUR) 30 mg 24 hr tablet Take 60 mg by mouth once daily. - blood sugar diagnostic ([employer] BLOOD GLUCOSE SYSTEM) test strip Use as instructed to check blood sugar 3 to 4 times daily DM: yes I nsulin: yes DX:11.9 - ranolazine SR (RANEXA) 1,000 mg Tb12 Take 1 tablet by mout h twice daily. - fenofibrate nanocrystallized (TRICOR) 145 mg tablet Take 1 tablet by mouth once daily. - pantoprazole DR (PROTONIX) 40 mg tablet Take 40 mg by mout h once daily. - Lancets (ONE TOUCH ULTRASOFT LANCETS) lancets Use with One touch Glucometer as directed - Aspirin 81 mg ORAL Tab Take 1 tablet by mouth once daily. Take with food. - CRESTOR 40 MG TAB Take one(1) tablet daily. - NITROGLYCERIN 0.3 MG SUBLINGUAL TAB Dissolve 0.4 mg under the tongue. Usual dose for angina is 1 tablet every 5 minutes for maximu m of 3 doses in 15 minutes. No current facility-administered medications for this visit. CGM Report Summary of Professional CGM Findings: 1- CGM recording is adequate for interpretation. 2- Average glucose is 151 mg/dL. 3- Total frequency of hypoglycemia: 1% 4- Nocturnal hypoglycemia was not noted. 5- Hyperglycemic episodes: 24% 6- Time in target range (70-180 mg/dL): 75% Objective: Last 3 Encounter BP Readings: Date: BP: 10/06/2019 128/70 09/16/2019 122/70 04/28/2019 106/66 Wt: 118.8 kg (262 lb) BMI: 39.84 kg/(m2) LABS Lab Results Component Value Date HBA1C 6.8 04/21/2019 HBA1C 7.3 01/14/2019 HBA1C 7.4 10/22/2018 CMP: Glucose 185 04/21/2019 BUN 25 04/21/2019 Creatinine 1.35 04/21/2019 Sodium 138 04/21/2019 Potassium 4.6 04/21/2019 Chloride 98 04/21/2019 CO2 27 04/21/2019 Protein, Total 7.1 04/21/2019 Albumin 4.5 04/21/2019 Calcium 9.3 04/21/2019 Alkaline Phosphatase 51 04/21/2019 Bilirubin, Total 0.6 04/21/2019 AST 36 04/21/2019 ALT 33 04/21/2019 EGFR: 52 mL/min/1.73m2 Vitamin B12 Date Value Ref Range Status 12/17/2018 384 232 - 1,245 pg/mL Final Lab Results Component Value Date CHOL 118 01/14/2019 LDL 52 01/14/2019 HDL 32 01/14/2019 TG 172 01/14/2019 Albumin/Creat Ratio (mg/g) Date Value 01/14/2019 8 PHARMACOTHERAPY ASSESSMENT/PLAN: 1. Type 2 diabetes mellitus with stage 3 chronic kidney dise ase, with long-term current use of insulin ([facility]) - ICD9: 250.40, 585.3 , V58.67, ICD10: E11.22, N18.3, Z79.4 (primary diagnosis) A1c goal < 8%; not at goal (last A1c 6.8%); SMBG at goal on current regimen; reports s/sx hypoglycemia and has h/o hypoglycemia unawarness with BG in the 50s. To prevent risk of large BG drop and hyp oglycemia, will recommend decreasing insulin R dose and utilizing slidi ng scale. Patient would also benefit from switching insulin NPH to ins ulin glargine for decreased risk of hypoglycemia with longer duration of a ction. Patient assistance forms for [employer] given to pt to pursue basal insulin. Renal function and LFTs appropriate for continued use. [place] law requires the collaborative practice agreement to be initiated by a physician in order to provide medication titration. Thus, pharmacy will only provide medication recommendations and counseling today , unless recommendations are approved verbally by the consulting prov ider. (Verbal orders approved by consulting ELBA Garsia) ? Recommend to decrease insulin R to 17 units before meals t hree times daily plus sliding scale Add 0 units if Blood Sugar is between 70-150 Add 1 units if Blood Sugar is between 151-200 Add 2 units if Blood Sugar is between 201-250 Add 3 units if Blood Sugar is between 251-300 Add 4 units if Blood Sugar is between 301-350 Add 5 units if Blood Sugar is between 351-400 BS > 400 , call your physician ? Recommend to continue insulin NPH 32 units twice daily ? In future to consider switching to Basaglar and Humalog, p atient assistance forms for [employer] Cares provided to patient Diabetic Education given re: disease pathology, signs of hig h blood sugar, signs and symptoms and management of hypoglycemia, risks of poor control, diabetic diet with basic carbohydrate counting, need for aer obic exercise with goal 30 mins/day, 5x/week, need for an annual dilated e ye exam, and timing for home glucose monitoring with a review of target r anges ACEi/ARB for renal protection: yes, Scr and K+ ok to continu e (CMP already ordered) HbA1c: due now (already ordered by PCP will go to lab 10/13) - INSULIN U-100 REGULAR HUMAN 100 UNIT/ML INJECTION SOLUTION - INSULIN NPH ISOPHANE U-100 HUMAN 100 UNIT/ML SUBCUTANEOUS SUSPENSION Patient is scheduled to see PCP on 10/26. Patient to follow up telephonically with PharmD on 11/03, to u pload CGM data on [employer] prior to appt with help from daughter. Patient verbalized understanding of instructions. Denita Thorpe, [facility] Clinical Pharmacist Oziel [facility] elban on 2019-10-12 CNPN Telephone (SensorionRAV) Normal 10-12-2019 [facility] LOVELY DEVI ([id number]) 1945 [place] Date Time Provider Department ([id number]) 10/12/19 BLOSSOM (PHARMACIST)SHARIF During your visit today, we recorded the following informati on about you: ANSHUL SEBASTIAN 10/12/2019 9:23 AM Signed [facility] Referring provider: No ref. provider found Lovelyguadalupe Devi is a 73 year old year old male patient being evaluated today for anticoagulation Telemanagement visit. Patient is currently on the following anticoagulant Warfarin Labs PT INR (no units) Date Value 11/26/2018 Test sent to [facility]. 10/16/2017 1.8 01/16/2017 Test sent to [facility]. INR (POCT) (no units) Date Value 02/21/2019 2.9 01/24/2019 2.9 01/17/2019 3.2 INR Home CoaguChek (no units) Date Value 10/12/2019 2.2 09/28/2019 3.0 09/14/2019 2.7 Hemoglobin (g/dL) Date Value 01/14/2019 12.0 Hematocrit (%) Date Value 01/14/2019 37.9 Platelet Count (k/uL) Date Value 01/14/2019 154 Creatinine (mg/dL) Date Value 04/21/2019 1.35 01/14/2019 1.24 12/17/2018 1.34 Bilirubin, Total (mg/dL) Date Value 04/21/2019 0.6 ALT (U/L) Date Value 04/21/2019 33 AST (U/L) Date Value 04/21/2019 36 CrCl cannot be calculated (Unknown ideal weight.). ALLERGIES Allergen Reactions - Morphine - Rocephin [Ceftriaxo* Other: See Comments Hot flashes; redness to skin Indication for Warfarin: Paroxysmal atrial fibrillation (hcc ) Anticoagulated on coumadin Goal INR Range: 2-3 Assessment: ? INR result of 2.2 is therapeutic ? Noticed he was prescribed macrobid for dysuria. Plan: ? Advised patient to continue current weekly dose ? Next point of care INR check scheduled on 10/25 LVMX for pt to call the PAC w/ questions/concerns/ changes/r efills needs. Advised him that macrobid does not typically affect warfarin levels. JOLEEN CERRATO, PHARMACIST Clinical Pharmacist, [facility]tico[facility] Pharm[facility] Pager: [phone] Description Patient has 3 mg tablets of warfarin. Patient takes in the m orning. . Allergies As of Date: 10/12/2019 Noted Allergy Reaction MORPHINE 02/28/2005 ROCEPHIN (CEFTRIAXONE SODIUM) 06/20/2014 14 - Other: See Com ments Comments: Hot flashes; redness to skin Date Reviewed: 10/06/2019 Reviewed by: Kath (Faiza.Revenue Stamp Clerk) Blaz, GUEST SERVICES AGENT.ROLL TESTER - Fully Assesse d Reason for Visit: Anticoagulation Telephone Fu [148] Cmt: Home INR result Primary Visit Diagnosis:Anticoagulated on Coumadin [Z79.01] Other Visit Diagnosis:Paroxysmal atrial fibrillation (HCC) [ I48.0] Prescriptions as of 10/12/2019 Sig: NITROFURANTOIN MONOHYDRATE AND * Take 1 capsule by mouth twi ce* GABAPENTIN 300 MG CAPSULE Take 1 capsule by mouth daily* LATANOPROST 0.005 % EYE DROPS Use 1 Drop in both eyes three* COLESTIPOL 1 GRAM TABLET Take 1 g by mouth twice daily. INSULIN LISPRO (U-100) 100 UN* 20 units with breakfast, 20 u * CARVEDILOL 3.125 MG TABLET Take 2 tablets by mouth twice* INSULIN NPH ISOPHANE U-100 HU* 30 units subcutaneous once da * CHOLECALCIFEROL (VITAMIN D3) * Take 1 capsule by mouth once * TRAZODONE 50 MG TABLET Take 2 tablets by mouth daily* WARFARIN 3 MG TABLET 3 mg every Mon, Wed, Fri; 6 m* CLOPIDOGREL 75 MG TABLET Take 1 tablet by mouth once d* INSULIN SYRINGE U-100 WITH NE* 1 Each five times daily. LISINOPRIL 20 MG TABLET Take 1 tablet by mouth once d* FUROSEMIDE 40 MG TABLET Take 1 tablet by mouth twice * BIPAP Initiate BiPAP @ 24/18 cm of * FLASH GLUCOSE SENSOR KIT 1 Each four times daily. BACK BRACE 1 Device once daily as needed* AMIODARONE 200 MG TABLET Take 1 tablet by mouth once d* SPIRONOLACTONE 25 MG TABLET Take 1 tablet by mouth once d* ISOSORBIDE MONONITRATE ER 30 * Take 60 mg by mouth once ajay * BLOOD SUGAR DIAGNOSTIC STRIPS Use as instructed to check bl* RANOLAZINE ER 1,000 MG TABLET* Take 1 tablet by mouth twice * FENOFIBRATE NANOCRYSTALLIZED * Take 1 tablet by mouth once d * PANTOPRAZOLE 40 MG TABLET,DEL* Take 40 mg by mouth once ajay * LANCETS Use with [employer] Glucometer * ASPIRIN 81 MG TABLET Take 1 tablet by mouth once d* CRESTOR 40 MG TABLET Take one(1) tablet daily. 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*09/16/2007 Type 2 diabetes mellitus, uncontrolled (HCC) [E*02/16/2008 1 04/21/2014 ESOPHAGEAL REFLUX [K21.9] 03/06/2008 Benign Neoplasm of Colon [D12.6] 02/21/2009 Labyrinthitis [H83.09] 02/05/2010 06/07/2014 Dermatophytosis of nail [B35.1] 06/05/2011 Atrial fibrillation [I48.91] 07/03/2011 Anticoagulated on Coumadin [Z79.01] 07/03/2011 Chronic diarrhea [K52.9] 09/16/2011 06/07/2014 Class 2 severe obesity due to excess calories w*09/16/2011 Stasis dermatitis of both legs [I87.2] 04/05/2013 Foot callus [L84] 10/04/2014 Subsequent non-ST elevation (NSTEMI) myocardial*12/25/2014 Syncope [R55] 02/19/2015 Hyperlipidemia LDL goal <100 [E78.5] 02/19/2015 ASHD (arteriosclerotic heart disease) [I25.10] 02/19/2015 Neurocardiogenic syncope [R55] 03/01/2015 Dysphagia [R13.10] 03/01/2015 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 Balanitis [N48.1] 11/16/2016 Coronary angioplasty status [Z98.61] 11/16/2016 Elevated troponin I level [R79.89] 01/29/2013 More... Family history of cerebrovascular accident (CVA*01/26/2018 History of deep venous thrombosis [Z86.718] 01/26/2018 History of non-ST elevation myocardial infarcti*01/26/2018 Ischemic cardiomyopathy [I25.5] 11/20/2017 Leukocytosis [D72.829] 01/29/2013 More... JESSICA (obstructive sleep apnea) [G47.33] 07/26/2018 RLS (restless legs syndrome) [G25.81] 07/28/2018 Localized swelling, mass and lump, neck [R22.1] 07/28/2018 Acute on chronic systolic congestive heart fail*12/17/2018 Encounter Status:Closed by BLOSSOM (PHARMACIST)JOLEEN on cnov on 2019-10-12 CNOV Office Visit (PHMEWO) Normal 10-12-19 [facility] LOVELY DEVI ([id number]) 1945 [place] Date Time Provider Department ([id number]) 10/12/19 3:00 PM KEMI (PHARMACIST)DENITA During your visit today, we recorded the following informati on about you: Anshul Hancock 10/13/2019 5:40 PM Signed [place] law requires the collaborative practice agreement to be initiated by a physician in order to provide medication titration. Th us, pharmacy will only provide medication recommend ations and counseling today, unless recommendations are approved verbally by the consulting provider. REASON FOR CONSULT: DM GOALS: A1c < 8% CONSULTING PROVIDER: ELBA Garsia Date of Consult: 09/16/2019 Lovely Devi is a 73 year old male was last seen by PCP, Dr. Morgan Valdez, III MD on 04/28/2019. Last seen by ELBA Nielsen on 10/06/2019. Subjective: Patient is presenting today for initial pharmacotherapy management appointment for diabetes. At 09/15 [facility] appt, insulin NPH dose decreased pt was consulted to pharmacy due to increased hypoglycemia. At last [facility] visit ga bapentin was initiated and empiric treatment for UTI was started with nit rofurantoin monohydrate. INTERIM HISTORY: States DM first diagnosed at least >10 years ago. He used to be on Lantus and Humalog but those were expensive so he has switched to insulin NPH and insulin R, Relion brand vials from [employer]. Reports in the past having l ower BG in the 50s, states it does not happen often but when it does he usually needs to treat it twice to improve the blood sugar. Reports does not really watch what he eats. He has [employer] Anitra CGM. Does not hav e [employer] accounts, states he is not too tech savvy but that his daughter could help him up load the CGM data from home. Current DM Medications: Insulin lispro 20 units thre e times daily with meals - reports taking insulin R 20 units three times daily with Insulin NPH 30 units twice daily - pt reports taking differe ntly: 32 units twice daily Preventative Medications: ? On NIYA/ARB: Yes ? On Statin: Yes ? On ASA: Yes ROS: ? Patient denies CP, SOB, FAITH, blurred vision, dizziness or l ightheadedness ? Patient denies symptoms of hypoglycemia (sweating, anxie ty, palpitations, hunger, and tremor) ? Patient denies symptoms of hyperglycemia (poly uria, polydipsia, polyphagia) ? Patient denies potential medication adverse effects MEDICATIONS: ? Pill bottles are not present. ? Adherence: denies missed doses. ? Pharmacy: [facility] ? Rx coverage: Medicare ? Affordability: Gutierrez of br and name insulins is costly on insurance, on Relion brand insulin vials ? 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 Esophageal Reflux Benign Neoplasm of Colon Dermatophytosis of Nail Atrial Fibrillation (Hcc) Anticoagulated On Coumadin Class 2 Severe Obesity Due t o Excess Calories With Serious Comorbidity and Body Mass Index (Bmi) of 38.0 to 38.9 in Adult ([facility]) Stasis Dermatitis of Both Legs Foot Callus Subsequent Non-St Elevation (Nstemi) Myocardial Infarc tion Within 4 Weeks of Initial Infarction (Hcc) Syncope Hyperlipidemia Ldl Goal <100 Ashd (Arteriosclerotic Heart Disease) Neurocardiogenic Syncope 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 With Stage 3 Chronic Kidney D isease, With Long-Term Current Use of Insulin ([facility]) Facet Arthritis of Lumbar Region Adenopathy Atrial Flutter (Hcc) Balanitis Coronary Angioplasty Status Elevated Troponin I Level Family History of Cerebrovascular Accident (Cva) History of Deep Venous Thrombosis History of Non-St Elevation Myocardial Infarction (Nstemi) Ischemic Cardiomyopathy Leukocytosis Jessica (Obstructive Sleep Apnea) Rls (Restless Legs Syndrome) Localized Swelling, Mass and Lump, Neck Acute On Chronic Systolic Congestive Heart Failure (Hcc) PAST MEDICAL HISTORY Diagnosis Date - ASHD (arteriosclerotic heart disease) 02/19/2015 - Atrial fibrillation ([facility]) 07/03/2011 - Automatic implantable cardiac defibrillator in situ - Petit's esophagus with esophagitis 03/01/2015 - Benign neoplasm of colon - Chronic diarrhea 09/16/2011 - Coronary atherosclerosis of unspecified type of vessel, na tive or graft s/p PR in 1985 - Diverticulosis of colon (without mention of hemorrhage) - Duodenitis without mention of hemorrhage - Dysphagia 03/01/2015 - Facet arthritis of lumbar region 07/14/2017 - GERD (gastroesophageal reflux disease) 06/10/12 - Heart attack (HCC) - Labyrinthitis 02/05/2010 - Neurocardiogenic syncope 03/01/2015 - Obesity 09/16/2011 - JESSICA treated with BiPAP DME [employer] - Other and unspecified hyperlipidemia - Other specified forms of chronic ischemic heart disease - Paroxysmal ventricular tachycardia (HCC) - Snoring - Stroke ([facility]) - Tinea of nail 01/13/2011 - Type 2 diabetes mellitus with st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, with long-term current use of insulin ([facility]) 06/15/2017 - Unspecified essential hypertension ALLERGIES Allergen Reactions - Morphine - Rocephin [Ceftriaxo* Other: See Comments Hot flashes; redness to skin Current Outpatient Medications Medication Sig - nitrofurantoin monohydrate and macrocr ystal (MACROBID) 100 mg capsule Take 1 capsule by mouth twice daily with meals for 7 days. - gabapentin (NEURONTIN) 300 mg capsule Take 1 capsule by mo ut daily at bedtime for 30 days. - latanoprost (XALATAN) 0.005 % ophthalmic solution Use 1 Drop in both eyes three times daily. - colestipol (COLESTID) 1 gram tablet Take 1 g by mouth twic e daily. - insulin lispro (HUMALOG U-100 INSULIN) 100 unit/mL i njection 20 units with breakfast, 20 units at lunch, and 20 units with supper. - carvedilol (COREG) 3.125 mg tablet Take 2 tabl ets by mouth twice daily. for one week starting on 06/20/16 then will be taking 6.25 x 2 da alisha . - insulin NPH injection (HumuLIN N,NovoL IN N) 30 units subcutaneous once daily before breakfast and 32 units at bedtime - Cholecalciferol, Vitamin D3, 50 mcg (2 ,000 unit) cap Take 1 capsule by mouth once daily. - traZODone (DESYREL) 50 mg tablet Take 2 tablets by m outh daily at bedtime. - warfarin (COUMADIN) 3 mg t ablet 3 mg every Mon, Wed, Fri; 6 mg all other days - clopidogrel (PLAVIX) 75 mg tablet Take 1 tablet by mouth o nce daily. - Insulin Syringe-Needle U-100 (BD ULTRAFINE INSULIN) 1 mL 31 gauge x 5/16 1 Each five times daily. - lisinopril (ZESTRIL, PRINIVIL) 20 mg tablet Take 1 tablet by mouth once daily. - furosemide (LASIX) 40 mg tablet Take 1 tablet by mouth twi ce daily. - BIPAP Initiate BiPAP @ 24/18 cm of water with humidificati on. Mask (per patient preference), chin strap, filters, tubing / heated tu jin, heated humidity and lifetime supplies. Dx. JESSICA G47.33 327.23 - fax compliance download to [phone] - flash glucose sensor (FREESTYLE ANITRA 14 DAY SENSOR) kit 1 Each four times daily. - Back Brace misc 1 Device once daily as needed. size large - amiodarone (PACERONE) 200 mg tablet Take 1 tablet by mouth once daily. - spironolactone (ALDACTONE) 25 mg tablet Take 1 table t by mouth once daily. - isosorbide mononitrate ER (IMDUR) 30 mg 24 hr tablet Take 60 mg by mouth once daily. - blood sugar diagnostic ([employer] BLOOD GLUCOSE SYSTEM) test strip Use as instructed to check blood ureña gar 3 to 4 times daily DM: yes Insulin: yes DX:11.9 - ranolazine SR (RANEXA) 1,000 mg Tb12 Take 1 tablet by mout h twice daily. - fenofibrate nanocrystallized (TRICOR) 145 mg tablet Take 1 tablet by mouth once daily. - pantoprazole DR (PROTONIX) 40 mg tablet Take 40 mg by mout h once daily. - Lancets (ONE TOUCH ULTRASO FT LANCETS) lancets Use with [employer] Glucometer as directed - Aspirin 81 mg ORAL Tab Take 1 tablet by mouth once daily . Take with food. - CRESTOR 40 MG TAB Take one(1) tablet daily. - NITROGLYCERIN 0.3 MG SUBLINGUAL TAB Dissolve 0 .4 mg under the tongue. Usual dose for angina is 1 tablet every 5 minutes for maximum of 3 doses in 15 minutes. No current facility-administered medications for this visit. CGM Report Summary of Professional CGM Findings: 1- CGM recording is adequate for interpretation. 2- Average glucose is 151 mg/dL. 3- Total frequency of hypoglycemia: 1% 4- Nocturnal hypoglycemia was not noted. 5- Hyperglycemic episodes: 24% 6- Time in target range (70-180 mg/dL): 75% Objective: Last 3 Encounter BP Readings: Date: BP: 10/06/2019 128/70 09/16/2019 122/70 04/28/2019 106/66 Wt: 118.8 kg (262 lb) BMI: 39.84 kg/(m2) LABS Lab Results Component Value Date HBA1C 6.8 04/21/2019 HBA1C 7.3 01/14/2019 HBA1C 7.4 10/22/2018 CMP: Glucose 185 04/21/2019 BUN 25 04/21/2019 Creatinine 1.35 04/21/2019 Sodium 138 04/21/2019 Potassium 4.6 04/21/2019 Chloride 98 04/21/2019 CO2 27 04/21/2019 Protein, Total 7.1 04/21/2019 Albumin 4.5 04/21/2019 Calcium 9.3 04/21/2019 Alkaline Phosphatase 51 04/21/2019 Bilirubin, Total 0.6 04/21/2019 AST 36 04/21/2019 ALT 33 04/21/2019 EGFR: 52 mL/min/1.73m2 Vitamin B12 Date Value Ref Range Status 12/17/2018 384 232 - 1,245 pg/mL Final Lab Results Component Value Date CHOL 118 01/14/2019 LDL 52 01/14/2019 HDL 32 01/14/2019 TG 172 01/14/2019 Albumin/Creat Ratio (mg/g) Date Value 01/14/2019 8 PHARMACOTHERAPY ASSESSMENT/PLAN: 1. Type 2 diabetes mellitus with st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, with long-term current use of insulin ([facility]) - ICD9: 250.40, 585.3, V58.67, ICD10: E11.22, N18.3, Z79.4 (primary diagnosis) A1c goal < 8%; not at goal (last A1c 6.8%); SMBG at go al on current regimen; reports s/sx hypoglycemia and has h/o hypoglycemia jaleesa warness with BG in the 50s. To prevent risk of large BG drop and hypoglycemia, will recommend decreasing insulin R dose and utilizing sliding scale. Patie nt would also benefit from switching insulin NPH to insulin glargine for decreased risk of hypoglycemia with longer duration of action. Patient assista nce forms for [employer] given to pt to pursue basal insulin. Renal functi on and LFTs appropriate for continued use. [place] law requires the collaborative practice agreement to be initiated by a physician in order to provide medication titration. [facility], pharmacy will only provide medication recommend ations and counseling today, unless recommendations are approved verbally by the consulting provider. (Adrien bal orders approved by consulting ELBA Garsia) ? Recommend to decrease insulin R to 17 units before m eals three times daily plus sliding scale Add 0 units if Blood Sugar is between 70-150 Add 1 units if Blood Sugar is between 151-200 Add 2 units if Blood Sugar is between 201-250 Add 3 units if Blood Sugar is between 251-300 Add 4 units if Blood Sugar is between 301-350 Add 5 units if Blood Sugar is between 351-400 BS > 400 , call your physician ? Recommend to continue insulin NPH 32 units twice daily ? In future to consider switching to Basaglar an d Humalog, patient assistance forms for [employer] provided to patient Diabetic Education given re: disease pathology, signs of hig h blood sugar, signs and symptoms and management of hypoglycemia, risks of poor control, diabetic diet with basic carbohydrate co unting, need for aerobic exercise with goal 30 mins/day, 5x/week, need for an a nnual dilated eye exam, and timing for home glucose monitoring with a review of target ranges ACEi/ARB for renal protection: yes, Scr and K+ ok to continu e (CMP already ordered) HbA1c: due now (already ordered by PCP will go to lab 10/13) - INSULIN U-100 REGULAR HUMAN 100 UNIT/ML INJECTION SOLUTION - INSULIN NPH ISOPHANE U-100 HUMAN 100 UNIT/ML SUBCUTANEOUS SUSPENSION Patient is scheduled to see PCP on 10/26. Patient to follow up telephonically with PharmD on 11/03, to upload CGM data on [employer] prior to appt with help from daughter. Patient verbalized understanding of instructions. Denita Thorpe PharmD Primary Care Clinical Pharmacist Oziel [facility] Anshul Hancock 10/12/2019 3:56 PM Addendum ? Decrease insulin R to 17 units before meals three ti mes daily plus sliding scale ? Add 0 units if Blood Sugar is between 70-150 ? Add 1 units if Blood Sugar is between 151-200 ? Add 2 units if Blood Sugar is between 201-250 ? Add 3 units if Blood Sugar is between 251-300 ? Add 4 units if Blood Sugar is between 301-350 ? Add 5 units if Blood Sugar is between 351-400 ? BS > 400 , call your physician ? ? Continue insulin NPH 32 units twice daily ? Consider patient assistance forms for free insulin, available in pen forms for Basaglar (would replace insulin N) and Humalog (wo uld replace insulin R) Referring Provider: DENIZ GARSIA [[id number]] Allergies As of Date: 10/12/2019 Noted Allergy Reaction MORPHINE 02/28/2005 ROCEPHIN (CEFTRIAXONE SODIUM) 06/20/2014 14 - Other: See Com ments Comments: Hot flashes; redness to skin Date Reviewed: 10/06/2019 Reviewed by: Kath (Dnp.Revenue Stamp Clerk) SHANELLE Nielsen.ELBA - Fully Assesse d Reason for Visit: Allied Health Visit [5] Cmt: DM Primary Visit Diagnosis:Type 2 diabetes mellitus with st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, with long-term current use of insulin (HCC) [E11.22, N18.3, Z79.4] Order(s):insulin NPH injection (HumuLIN N,NovoLIN N)32 units subcutaneous before breakfast and 32 units at bedtimeDisp: Rfl: insulin regular human (NOVOLIN R REGULAR U-100 INSULN) 100 u nit/mL injectionInject 17 units Subcutaneously three times daily be fore meals + sliding scale as directed ( 1 unit for every 50 mg/d L above 150 mg/dL)Disp: Rfl: Prescriptions as of 10/12/2019 Sig: INSULIN NPH ISOPHANE U-100 HU* 32 units subcutaneous before * INSULIN U-100 REGULAR HUMAN 1* Inject 17 units Subcutaneousl * NITROFURANTOIN MONOHYDRATE AND * Take 1 capsule by mouth twi ce* GABAPENTIN 300 MG CAPSULE Take 1 capsule by mouth daily* LATANOPROST 0.005 % EYE DROPS Use 1 Drop in both eyes three* COLESTIPOL 1 GRAM TABLET Take 1 g by mouth twice daily. CARVEDILOL 3.125 MG TABLET Take 2 tablets by mouth twice* CHOLECALCIFEROL (VITAMIN D3) * Take 1 capsule by mouth once * TRAZODONE 50 MG TABLET Take 2 tablets by mouth daily* WARFARIN 3 MG TABLET 3 mg every Mon, Wed, Fri; 6 m* CLOPIDOGREL 75 MG TABLET Take 1 tablet by mouth once d* INSULIN SYRINGE U-100 WITH NE* 1 Each five times daily. LISINOPRIL 20 MG TABLET Take 1 tablet by mouth once d* FUROSEMIDE 40 MG TABLET Take 1 tablet by mouth twice * BIPAP Initiate BiPAP @ 24/18 cm of * FLASH GLUCOSE SENSOR KIT 1 Each four times daily. BACK BRACE 1 Device once daily as needed* AMIODARONE 200 MG TABLET Take 1 tablet by mouth once d* SPIRONOLACTONE 25 MG TABLET Take 1 tablet by mouth once d* ISOSORBIDE MONONITRATE ER 30 * Take 60 mg by mouth once ajay * BLOOD SUGAR DIAGNOSTIC STRIPS Use as instructed to check bl* RANOLAZINE ER 1,000 MG TABLET* Take 1 tablet by mouth twice * FENOFIBRATE NANOCRYSTALLIZED * Take 1 tablet by mouth once d * PANTOPRAZOLE 40 MG TABLET,DEL* Take 40 mg by mouth once ajay * LANCETS Use with [employer] Glucometer * ASPIRIN 81 MG TABLET Take 1 tablet by mouth once d* CRESTOR 40 MG TABLET Take one(1) tablet daily. 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*09/16/2007 Type 2 diabetes mellitus, uncontrolled (HCC) [E*02/16/2008 1 04/21/2014 ESOPHAGEAL REFLUX [K21.9] 03/06/2008 Benign Neoplasm of Colon [D12.6] 02/21/2009 Labyrinthitis [H83.09] 02/05/2010 06/07/2014 Dermatophytosis of nail [B35.1] 06/05/2011 Atrial fibrillation [I48.91] 07/03/2011 Anticoagulated on Coumadin [Z79.01] 07/03/2011 Chronic diarrhea [K52.9] 09/16/2011 06/07/2014 Class 2 severe obesity due to excess calories w*09/16/2011 Stasis dermatitis of both legs [I87.2] 04/05/2013 Foot callus [L84] 10/04/2014 Subsequent non-ST elevation (NSTEMI) myocardial*12/25/2014 Syncope [R55] 02/19/2015 Hyperlipidemia LDL goal <100 [E78.5] 02/19/2015 ASHD (arteriosclerotic heart disease) [I25.10] 02/19/2015 Neurocardiogenic syncope [R55] 03/01/2015 Dysphagia [R13.10] 03/01/2015 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 Balanitis [N48.1] 11/16/2016 Coronary angioplasty status [Z98.61] 11/16/2016 Elevated troponin I level [R79.89] 01/29/2013 More... Family history of cerebrovascular accident (CVA*01/26/2018 History of deep venous thrombosis [Z86.718] 01/26/2018 History of non-ST elevation myocardial infarcti*01/26/2018 Ischemic cardiomyopathy [I25.5] 11/20/2017 Leukocytosis [D72.829] 01/29/2013 More... JESSICA (obstructive sleep apnea) [G47.33] 07/26/2018 RLS (restless legs syndrome) [G25.81] 07/28/2018 Localized swelling, mass and lump, neck [R22.1] 07/28/2018 Acute on chronic systolic congestive heart fail*12/17/2018 Other instructions from your clinician: ? Decrease insulin R to 17 units before meals three times da alisha plus sliding scale ? Add 0 units if Blood Sugar is between 70-150 ? Add 1 units if Blood Sugar is between 151-200 ? Add 2 units if Blood Sugar is between 201-250 ? Add 3 units if Blood Sugar is between 251-300 ? Add 4 units if Blood Sugar is between 301-350 ? Add 5 units if Blood Sugar is between 351-400 ? BS > 400 , call your physician ? ? Continue insulin NPH 32 units twice daily ? Consider patient assistance forms for free insulin, availa ble in pen forms for Basaglar (would replace insulin N) and Humalog (wo uld replace insulin R) Prescriptions ordered this encounter Disp Refills Start End INSULIN NPH ISOPHANE U-100 HUMAN 100* 10/13/2019 Class: Med Update Si units subcutaneous before breakfast and 32 units at bedtime INSULIN U-100 REGULAR HUMAN 100 UNIT* 10/13/2019 Class: Med Update Sig: Inject 17 units Subcutaneously three times daily before meals + sliding scale as directed ( 1 unit for every 50 mg/dL above 150 mg/d L) Medications Discontinued During This Encounter insulin NPH injection (HumuLIN N,Nov* 60 mL 3 09/16/201910/12 Class: Med Update Si units subcutaneous once daily be fore breakfast and 32 units at bedtime Disc: Adjust Sig - Block E-Cancel insulin lispro (HUMALOG U-100 INSULI* 09/16/2019 10/13/2019 Class: Med Update Si units with breakfast, 20 units at lunch, and 20 unit s with supper. Disc: Cost of medication Encounter Status:Closed by KEMI (PHARMACIST)DENITA on progress on 2019-09 PROGRESS HNO ID: [id number] Normal 10-06-2019 [facility] Author: Kath (Faiza.Elba) SEFERINO Nielsen Amado ([id number]) Service: ? Author Type: Nurse Practitioner Type: Progress Notes Filed: 10/06/2019 3:42 PM Note Text: Chief Complaint Patient presents with: Hematuria: urine taken but home health 2 weeks ago Burning with urination HPI Lovely Devi is a 73 year old male who presents he re today for a several day history of urinary symptoms. This is an [facility] patient of Dr. Morgan Valdez III MD. This is a new patient to me. Patient was recently admitted a nd discharged from [facility] for cellulitis to right leg. He developed burning with urination 2 days ago and a urinalysis was perfo rmed by home health. UA showed that he had blood in his urine. Denies any fevers, chills, nausea, vomiting, suprapubic pain, flank pain, or he maturia. Complains of burning to his bilateral lower extremities wh en he goes to bed at night for the last week. Burning is relieved by getti ng out of bed and moving to his rocking chair, denies any other aggravatin g or alleviating factors. He does have a history of diabetes but does not recall being told that he has diabetic neuropathy. He was on gabapentin several years ago but states it was discontinued by his [facility] medicine doctor. Past medical history, appointments, medications, allergies r benjiewed 10/06/2019 Previous Medical History PAST MEDICAL HISTORY Diagnosis Date - ASHD (arteriosclerotic heart disease) 02/19/2015 - Atrial fibrillation (HCC) 07/03/2011 - Automatic implantable cardiac defibrillator in situ - Petit's esophagus with esophagitis 03/01/2015 - Benign neoplasm of colon - Chronic diarrhea 09/16/2011 - Coronary atherosclerosis of unspecified type of vessel, na tive or graft s/p PR in 1985 - Diverticulosis of colon (without mention of hemorrhage) - Duodenitis without mention of hemorrhage - Dysphagia 03/01/2015 - Facet arthritis of lumbar region 07/14/2017 - GERD (gastroesophageal reflux disease) 06/10/12 - Heart attack (HCC) - Labyrinthitis 02/05/2010 - Neurocardiogenic syncope 03/01/2015 - Obesity 09/16/2011 - JESSICA treated with BiPAP DME [employer] - Other and unspecified hyperlipidemia - Other specified forms of chronic ischemic heart disease - Paroxysmal ventricular tachycardia (HCC) - Snoring - Stroke (HCC) - Tinea of nail 01/13/2011 - Type 2 diabetes mellitus with stage 3 chronic kidney disea se, with long-term current use of insulin ([facility]) 06/15/2017 - Unspecified essential hypertension Previous Surgical History PAST SURGICAL HISTORY Procedure Laterality Date - [facility] Dr. Anthony-repeat 3 years-11/2020 - COLONOSCOPY W/BX 02/21/09 - EGD W/O OR W/BRUSH/WASH EGD - EGD W/O OR W/BRUSH/WASH 02/16/08 EGD inpt [facility] H-pylori negative - EGD W/O OR W/BRUSH/WASH 05/24/15 EGD - EGD W/O OR W/BRUSH/WASH 12/21/2017 Dr. Anthony-repeat 3 years-11/2020 - HEART CATHETERIZATION 12/15/2014 [facility] - see scanned documents - HEART SURGERY HX - LEFT HEART CATH,PERCUTANEOUS Cardiac cath, L heart - LEFT HEART CATH,PERCUTANEOUS 06/20/11 Cardiac cath, L heart - PERC TRANSL COR ANGIO Percutaneous Transluminal Coronary Angio Status Family History FAMILY HISTORY Problem Relation Age of Onset - Stroke Mother - Heart Mother - Cancer Father prostate - Heart Father - Breast Cancer Sister - Breast Cancer Sister - Diabetes Sister - Diabetes Brother - Diabetes Brother Patient Allergies ALLERGIES Allergen Reactions - Morphine - Rocephin [Ceftriaxo* Other: See Comments Hot flashes; redness to skin Current Medications Current Outpatient Medications on File Prior to Visit Medication Sig - latanoprost (XALATAN) 0.005 % ophthalmic solution Use 1 Dr deanna in both eyes three times daily. - colestipol (COLESTID) 1 gram tablet Take 1 g by mouth twic e daily. - insulin lispro (HUMALOG U-100 INSULIN) 100 unit/mL injecti on 20 units with breakfast, 20 units at lunch, and 20 units with supper. - carvedilol (COREG) 3.125 mg tablet Take 2 tablets by mouth twice daily. for one week starting on 06/20/16 then will be taking 6.25 x 2 daily . - insulin NPH injection (HumuLIN N,NovoLIN N) 30 units subcu taneous once daily before breakfast and 32 units at bedtime - Cholecalciferol, Vitamin D3, 50 mcg (2,000 unit) cap Take 1 capsule by mouth once daily. - traZODone (DESYREL) 50 mg tablet Take 2 tablets by mouth d aily at bedtime. - warfarin (COUMADIN) 3 mg tablet 3 mg every Mon, Wed, Fri; 6 mg all other days - clopidogrel (PLAVIX) 75 mg tablet Take 1 tablet by mouth o nce daily. - Insulin Syringe-Needle U-100 (BD ULTRAFINE INSULIN) 1 mL 3 1 gauge x 5/16 1 Each five times daily. - lisinopril (ZESTRIL, PRINIVIL) 20 mg tablet Take 1 tablet by mouth once daily. - furosemide (LASIX) 40 mg tablet Take 1 tablet by mouth twi ce daily. - BIPAP Initiate BiPAP @ 24/18 cm of water with humidificati on. Mask (per patient preference), chin strap, filters, tubing / heated tu jin, heated humidity and lifetime supplies. Dx. JESSICA G47.33 327.23 - fax compliance download to [phone] - flash glucose sensor (FREESTYLE ANITRA 14 DAY SENSOR) kit 1 Each four times daily. - Back Brace misc 1 Device once daily as needed. size large - amiodarone (PACERONE) 200 mg tablet Take 1 tablet by mouth once daily. - spironolactone (ALDACTONE) 25 mg tablet Take 1 tablet by m outh once daily. - isosorbide mononitrate ER (IMDUR) 30 mg 24 hr tablet Take 60 mg by mouth once daily. - blood sugar diagnostic ([employer] BLOOD GLUCOSE SYSTEM) test strip Use as instructed to check blood sugar 3 to 4 times daily DM: yes I nsulin: yes DX:11.9 - ranolazine SR (RANEXA) 1,000 mg Tb12 Take 1 tablet by mout h twice daily. - fenofibrate nanocrystallized (TRICOR) 145 mg tablet Take 1 tablet by mouth once daily. - pantoprazole DR (PROTONIX) 40 mg tablet Take 40 mg by mout h once daily. - Lancets (ONE TOUCH ULTRASOFT LANCETS) lancets Use with One touch Glucometer as directed - Aspirin 81 mg ORAL Tab Take 1 tablet by mouth once daily. Take with food. - CRESTOR 40 MG TAB Take one(1) tablet daily. - NITROGLYCERIN 0.3 MG SUBLINGUAL TAB Dissolve 0.4 mg under the tongue. Usual dose for angina is 1 tablet every 5 minutes for maximu m of 3 doses in 15 minutes. No current facility-administered medications on file prior t o visit. Social History Social History Tobacco Use - Smoking status: Former Smoker Years: 15.00 Types: Cigars Last attempt to quit: 08/12/2007 Years since quittin.1 - Smokeless tobacco: Never Used - Tobacco comment: 2-3 per day Substance Use Topics - Alcohol use: No Frequency: Never Binge frequency: Never - Drug use: No Review of Symptoms GENERAL: No weight loss, malaise fatigue or fevers. RESPIRATORY: Negative for wheezing, dyspnea or shortness of breath CARDIOVASCULAR: Negative for chest pain GI: No nausea, vomiting, or diarrhea. No abdominal pain : + for burning, dysuria, urgency or frequency. No morgan b lood in urine MUSCULOSKELETAL: Negative for generalized joint pain or body aches SKIN: Negative for lesions, rash, and itching EXAM: BP 128/70 (BP Site: Right Arm, BP Position: Sitting, BP Cuff Size: Large Adult) Pulse 65 Temp 36.9 ?C (98.4 ?F) (Right Tympanic) Resp 14 Wt 118.8 kg (262 lb) SpO2 95% BMI 39.84 kg/m? General Appearance: Well appearing, alert, in no acute distr ess, well-hydrated, well nourished. Obese. Skin: Skin color, texture Head: Normocephalic, no masses, lesions, or abnormalities. Lungs: Lungs clear to auscultation. No wheezing, rhonchi, ra les. Heart: RRR without murmur, gallop, or rubs. GI: Soft and round. Nontender in epigastric region. No lower quadrant abdominal tenderness. No rebound tenderness. No suprapubic t enderness. No CVA tenderness. Extremities: Niya wrap and ortho shoe on left foot, compressi on hose with bandage over cellulitis to right leg. Dressing not removed f or examination. Psych: Attitude - cooperative, easily engaged in conversatio n Appearance - normal, hygiene and grooming appropriate Affect - euthymic, normal mood Mental status: Alert, attentive. Speech is clear and fluent with good repetition, comprehension Gait/Stance: Posture is normal. Gait is steady with normal s teps Health Maintenance List SHINGRIX VACCINE(1 of 2) due on 10/20/1995 ADVANCE DIRECTIVE DISCUSSION due on 2010 DIABETIC FOOT EXAM due on 07/16/2019 HBA1C due on 10/20/2019 INFLUENZA(1) due on 11/29/2019 URINE ALBUMIN:CREATININE RATIO due on 01/15/2020 LDL CHOLESTEROL due on 01/15/2020 HEMOGLOBIN/HEMATOCRIT due on 01/15/2020 SERUM CREATININE due on 04/21/2020 DILATED RETINAL EXAM due on 08/10/2020 ANNUAL PCP TEAM CHRONIC DISEASE VISIT due on 09/15/2020 BP CONTROLLED (<130/80) due on 09/15/2020 DTAP,TDAP,TD(3 - Td) due on 10/17/2027 COLORECTAL CANCER SCREENING,SEE MODIFIER due on 01/07/2028 ABDOMINAL AORTIC ANEURYSM SCREENING Completed HEPATITIS C SCREENING Completed PNEUMOVAX AGE 65 AND OVER WITH 5YR LOOKBACK Completed Data reviewed Last 5 Encounter BP Readings: Date: BP: 09/16/2019 122/70 04/28/2019 106/66 04/05/2019 130/68 03/24/2019 123/58 01/26/2019 130/82 BMI Readings from Last 5 Encounters: 10/06/19 : 39.84 kg/m? 04/28/19 : 40.14 kg/m? 04/05/19 : 40.66 kg/m? 03/24/19 : 41.05 kg/m? 01/26/19 : 40.60 kg/m? Last 5 Encounter Wt Readings: Date: Wt: 09/16/2019 0 kg () 04/28/2019 119.7 kg (264 lb) 04/05/2019 121.3 kg (267 lb 6.4 oz) 03/24/2019 122.5 kg (270 lb) 01/26/2019 121.1 kg (267 lb) Medication and allergy list reviewed, reconciled and updated 10/06/2019 ASSESSMENT/PLAN: 1. Microscopic hematuria - ICD9: 599.72, ICD10: R31.29 (prim amalia diagnosis) Probable UTI. Given symptomatic dysuria with leukocytes in u rinalysis, he will be empirically started on macrobid 100 mg BID x7 days. - Urine culture will be performed, clinic to call with resul ts - Encouraged to increase hydration. - UA DIP, URINE (POC) - NITROFURANTOIN MONOHYDRATE AND MACROCRYSTAL 100 MG ORAL CA P 2. Type 2 diabetes mellitus with diabetic neuropathy, with l miki-term current use of insulin (HCC) - ICD9: 250.60, 357.2, V58.67, ICD10: E11.40, Z79.4 -Stable - Add Gabapentin 300 mg QHS -Will discuss effectiveness with Dr. Valdez at his follow up appointment scheduled on 10/27/19 - GABAPENTIN 300 MG CAPSULE 3. Dysuria - ICD9: 788.1, ICD10: R30.0 acute - Plan same as in #1 - NITROFURANTOIN MONOHYDRATE AND MACROCRYSTAL 100 MG ORAL CA P Lacey Nguyen APN Student Kath Nielsen DNP, ROLL TESTER This note was completed with [employer] dictation software. Note was reviewed for accuracy. There may be minor misspellings or gr ammar miscues with IN[employer] Dictation. Lacey Nguyen APN student from [facility] completed initial history and physical exam. I reviewed the note, examined the patient and concur with plan of care. [place] [id number] cnov on 2019-10-06 CNOV Office Visit (FAMPWS) Normal 10-06-[address] [place] [address] [facility] LOVELY DEVI ([id number]) 1945 [facility] Date Time Provider Department ([id number]) 10/06/19 1:40 PM KATH NIELSEN ([email or web address].[email or web address]) FAMPWS During your visit today, we recorded the following informati on about you: Temperature Pulse Respiration Blood pressure 98.4 degrees 65/minute 14/minute 128/70 Weight 118.8 kg Kath Nielsen DNP.ELBA, GUEST SERVICES AGENT.ELBA 10/06/2019 3:42 PM Signed Chief Complaint Patient presents with: Hematuria: urine taken but home health 2 weeks ago Burning with urination HPI Lovely Devi is a 73 year old male who presents he re today for a several day history of urinary symptoms. This is an established patient of Dr. Morgan Valdez III MD. This is a new patient to me. Patient was recently admitted and discharged from [facility] for cellulitis to right leg . He developed burning with urination 2 days ago and a urinalysis was performed b y home health. UA showed that he had blood in his urine. Denies any fevers, ch ills, nausea, vomiting, suprapubic pain, flank pain, or hematuria. Complains of burning to his bilateral lower ex tremities when he goes to bed at night for the last week. Burning is relieved by getting o ut of bed and moving to his rocking chair, denies any other aggravating or alleviating factors. He does have a hist ory of diabetes but does not recall being told that he has diabetic neuropathy. He was on gabapentin several years ago but states it was discontinued by his sleep medicine doctor. Past medical history, appointments, medications, aller gies reviewed 10/06/2019 Previous Medical History PAST MEDICAL HISTORY Diagnosis Date - ASHD (arteriosclerotic heart disease) 02/19/2015 - Atrial fibrillation (HCC) 07/03/2011 - Automatic implantable cardiac defibrillator in situ - Petit's esophagus with esophagitis 03/01/2015 - Benign neoplasm of colon - Chronic diarrhea 09/16/2011 - Coronary atherosclerosis of unspecified type of vessel, na tive or graft s/p PR in 1985 - Diverticulosis of colon (without mention of hemorrhage) - Duodenitis without mention of hemorrhage - Dysphagia 03/01/2015 - Facet arthritis of lumbar region 07/14/2017 - GERD (gastroesophageal reflux disease) 06/10/12 - Heart attack (HCC) - Labyrinthitis 02/05/2010 - Neurocardiogenic syncope 03/01/2015 - Obesity 09/16/2011 - JESSICA treated with BiPAP DME [employer] - Other and unspecified hyperlipidemia - Other specified forms of chronic ischemic heart disease - Paroxysmal ventricular tachycardia (HCC) - Snoring - Stroke (HCC) - Tinea of nail 01/13/2011 - Type 2 diabetes mellitus with st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, with long-term current use of insulin (HCC) 06/15/2017 - Unspecified essential hypertension Previous Surgical History PAST SURGICAL HISTORY Procedure Laterality Date - COLONOSCOP W/ OR W/O BRSH SPEC 12/21/2017 Dr. Anthony-repeat 3 years-11/2020 - COLONOSCOPY W/BX 02/21/09 - EGD W/O OR W/BRUSH/WASH EGD - EGD W/O OR W/BRUSH/WASH 02/16/08 EGD inpt [facility] H-pylori negative - EGD W/O OR W/BRUSH/WASH 05/24/15 EGD - EGD W/O OR W/BRUSH/WASH 12/21/2017 Dr. Anthony-repeat 3 years-11/2020 - HEART CATHETERIZATION 12/15/2014 [facility] - see scanned documents - HEART SURGERY HX - LEFT HEART CATH,PERCUTANEOUS Cardiac cath, L heart - LEFT HEART CATH,PERCUTANEOUS 06/20/11 Cardiac cath, L heart - PERC TRANSL COR ANGIO Percutaneous Transluminal Coronary Angio Status Family History FAMILY HISTORY Problem Relation Age of Onset - Stroke Mother - Heart Mother - Cancer Father prostate - Heart Father - Breast Cancer Sister - Breast Cancer Sister - Diabetes Sister - Diabetes Brother - Diabetes Brother Patient Allergies ALLERGIES Allergen Reactions - Morphine - Rocephin [Ceftriaxo* Other: See Comments Hot flashes; redness to skin Current Medications Current Outpatient Medications on File Prior to Visit Medication Sig - latanoprost (XALATAN) 0.005 % ophthalmic solution Use 1 Drop in both eyes three times daily. - colestipol (COLESTID) 1 gram tablet Take 1 g by mouth twic e daily. - insulin lispro (HUMALOG U-100 INSULIN) 100 unit/mL i njection 20 units with breakfast, 20 units at lunch, and 20 units with supper. - carvedilol (COREG) 3.125 mg tablet Take 2 tabl ets by mouth twice daily. for one week starting on 06/20/16 then will be taking 6.25 x 2 da alisha . - insulin NPH injection (HumuLIN N,NovoL IN N) 30 units subcutaneous once daily before breakfast and 32 units at bedtime - Cholecalciferol, Vitamin D3, 50 mcg (2 ,000 unit) cap Take 1 capsule by mouth once daily. - traZODone (DESYREL) 50 mg tablet Take 2 tablets by m outh daily at bedtime. - warfarin (COUMADIN) 3 mg t ablet 3 mg every Mon, Wed, Fri; 6 mg all other days - clopidogrel (PLAVIX) 75 mg tablet Take 1 tablet by mouth o nce daily. - Insulin Syringe-Needle U-100 (BD ULTRAFINE INSULIN) 1 mL 31 gauge x 5/16 1 Each five times daily. - lisinopril (ZESTRIL, PRINIVIL) 20 mg tablet Take 1 tablet by mouth once daily. - furosemide (LASIX) 40 mg tablet Take 1 tablet by mouth twi ce daily. - BIPAP Initiate BiPAP @ 24/18 cm of water with humidificati on. Mask (per patient preference), chin strap, filters, tubing / heated tu jin, heated humidity and lifetime supplies. Dx. JESSICA G47.33 327.23 - fax compliance download to [phone] - flash glucose sensor ([employer] ANITRA 14 DAY SENSOR) kit 1 Each four times daily. - Back Brace misc 1 Device once daily as needed. size large - amiodarone (PACERONE) 200 mg tablet Take 1 tablet by mouth once daily. - spironolactone (ALDACTONE) 25 mg tablet Take 1 table t by mouth once daily. - isosorbide mononitrate ER (IMDUR) 30 mg 24 hr tablet Take 60 mg by mouth once daily. - blood sugar diagnostic ([employer] BLOOD GLUCOSE SYSTEM) test strip Use as instructed to check blood ureña gar 3 to 4 times daily DM: yes Insulin: yes DX:11.9 - ranolazine SR (RANEXA) 1,000 mg Tb12 Take 1 tablet by mout h twice daily. - fenofibrate nanocrystallized (TRICOR) 145 mg tablet Take 1 tablet by mouth once daily. - pantoprazole DR (PROTONIX) 40 mg tablet Take 40 mg by mout h once daily. - Lancets (ONE TOUCH ULTRASO FT LANCETS) lancets Use with [employer] Glucometer as directed - Aspirin 81 mg ORAL Tab Take 1 tablet by mouth once daily . Take with food. - CRESTOR 40 MG TAB Take one(1) tablet daily. - NITROGLYCERIN 0.3 MG SUBLINGUAL TAB Dissolve 0 .4 mg under the tongue. Usual dose for angina is 1 tablet every 5 minutes for maximum of 3 doses in 15 minutes. No current facility-administered medications on file prior t o visit. Social History Social History Tobacco Use - Smoking status: Former Smoker Years: 15.00 Types: Cigars Last attempt to quit: 08/12/2007 Years since quittin.1 - Smokeless tobacco: Never Used - Tobacco comment: 2-3 per day Substance Use Topics - Alcohol use: No Frequency: Never Binge frequency: Never - Drug use: No Review of Symptoms GENERAL: No weight loss, malaise fatigue or fevers. RESPIRATORY: Negative for wheezing, dyspnea or shortness of breath CARDIOVASCULAR: Negative for chest pain GI: No nausea, vomiting, or diarrhea. No abdominal pain : + for burning, dysuria, urgency or frequency. No morgan b lood in urine MUSCULOSKELETAL: Negative for generalized joint pain or body aches SKIN: Negative for lesions, rash, and itching EXAM: BP 128/70 (BP Site: Right Ar m, BP Position: Sitting, BP Cuff Size: Large Adult) Pulse 65 Temp 36.9 ?C (98.4 ?F) (Right Tympanic) Resp 14 Wt 118.8 kg (262 lb) SpO2 95% BMI 39.84 kg/m? General Appearance: Well pili earing, alert, in no acute distress, well-hydrated, well nourished. Obese. Skin: Skin color, texture Head: Normocephalic, no masses, lesions, or abnormalities. Lungs: Lungs clear to auscultation. No wheezing, rhonchi, ra les. Heart: RRR without murmur, gallop, or rubs. GI: Soft and round. Nontender in epigastric region. No lower quadrant abdominal tenderness. No rebound tenderness. No suprapubic t enderness. No CVA tenderness. Extremities: Niya wrap and ortho shoe on left foot, compressi on hose with bandage over cellulitis to right leg. Dressing not removed for examination. Psych: Attitude - cooperative, easily engaged in conversatio n Appearance - normal, hygiene and grooming appropriate Affect - euthymic, normal mood Mental status: Alert, attentive. Speech is clear and fluent with good repetition, comprehension Gait/Stance: Posture is normal. Gait is steady with normal s teps Health Maintenance List SHINGRIX VACCINE(1 of 2) due on 10/20/1995 ADVANCE DIRECTIVE DISCUSSION due on 2010 DIABETIC FOOT EXAM due on 07/16/2019 HBA1C due on 10/20/2019 INFLUENZA(1) due on 11/29/2019 URINE ALBUMIN:CREATININE RATIO due on 01/15/2020 LDL CHOLESTEROL due on 01/15/2020 HEMOGLOBIN/HEMATOCRIT due on 01/15/2020 SERUM CREATININE due on 04/21/2020 DILATED RETINAL EXAM due on 08/10/2020 ANNUAL PCP TEAM CHRONIC DISEASE VISIT due on 09/15/2020 BP CONTROLLED (<130/80) due on 09/15/2020 DTAP,TDAP,TD(3 - Td) due on 10/17/2027 COLORECTAL CANCER SCREENING,SEE MODIFIER due on 01/07/2028 ABDOMINAL AORTIC ANEURYSM SCREENING Completed HEPATITIS C SCREENING Completed PNEUMOVAX AGE 65 AND OVER WITH 5YR LOOKBACK Completed Data reviewed Last 5 Encounter BP Readings: Date: BP: 09/16/2019 122/70 04/28/2019 106/66 04/05/2019 130/68 03/24/2019 123/58 01/26/2019 130/82 BMI Readings from Last 5 Encounters: 10/06/19 : 39.84 kg/m? 04/28/19 : 40.14 kg/m? 04/05/19 : 40.66 kg/m? 03/24/19 : 41.05 kg/m? 01/26/19 : 40.60 kg/m? Last 5 Encounter Wt Readings: Date: Wt: 09/16/2019 0 kg () 04/28/2019 119.7 kg (264 lb) 04/05/2019 121.3 kg (267 lb 6.4 oz) 03/24/2019 122.5 kg (270 lb) 01/26/2019 121.1 kg (267 lb) Medication and allergy list reviewed, reconciled and updated 10/06/2019 ASSESSMENT/PLAN: 1. Microscopic hematuria - ICD9: 599.72, ICD10: R31.29 (prim amalia diagnosis) Probable UTI. Given symptomatic dysuria with leukocytes in urinalysis, he will be empirically started on macrobid 100 mg BID x7 days. - Urine culture will be performed, clinic to call with resul ts - Encouraged to increase hydration. - UA DIP, URINE (POC) - NITROFURANTOIN MONOHYDRATE AND MACROCRYSTAL 100 MG ORAL CA P 2. Type 2 diabetes mellitus with diabetic neuropathy, with long-term current use of insulin (HCC) - ICD9: 250.60, 357.2, V58.67, ICD10: E 11.40, Z79.4 -Stable - Add Gabapentin 300 mg QHS -Will discuss effectiveness with Dr. Valdez at his follow up appointment scheduled on 10/27/19 - GABAPENTIN 300 MG CAPSULE 3. Dysuria - ICD9: 788.1, ICD10: R30.0 acute - Plan same as in #1 - NITROFURANTOIN MONOHYDRATE AND MACROCRYSTAL 100 MG ORAL CA P Lacey Nguyen APN Student Kath Nielsen, DNP, ROLL TESTER This note was completed with [employer] software. Note was reviewed for accuracy. There may be minor misspellings or gramm ar miscues with IN-PIPE [employer]CHN[employer] Dictation. Lacey Nguyen APN student from [facility] completed initial history and physical exam. I reviewed the note, examined the patient and concur with plan of care. [place] [id number] Lacey Nguyen APN Student 10/06/2019 2:32 PM Addendum Urinalysis performed today in office Urine sent for culture, clinic to call if antibiotics need t o be changed Start macrobid 100 mg twice a day until completed Start gabapentin 300 mg at b edtime for burning to legs and discuss further with Dr. Valdez on schedule appointment Call clinic if burning with urination does not get better wi th antibiotics Return to the clinic or seek care at [facility] for any worsening signs or symptoms: such as f samina, chills, worsening pain, nausea, or diarrhea. For severe symptoms seek care at the [facility]. Plan of care, medicaiton side effects and management reviewed. Patient verbalizes understa nding of instructions. Healthy Habits: Recommend regular physical activity, nutrition and healthy e ating habits. Consume a variety of foods every day focusing on fruit s, vegetables and lean meats). Eat foods low in fat, saturated fat and cholesterol. Eat a limited amount of salt and sodium. Drink adequate amounts of water and limit sugary drinks. Exercise portion control in meal selection. Establish a mindset of a wellness approach to health. Thank you for allowing me to provide you r care today. I look forward to seeing you again and maintaining your health. Lacey Nguyen APN Student Referring Provider: SELF [[id number]] Allergies As of Date: 10/06/2019 Noted Allergy Reaction MORPHINE 02/28/2005 ROCEPHIN (CEFTRIAXONE SODIUM) 06/20/2014 14 - Other: See Com ments Comments: Hot flashes; redness to skin Date Reviewed: 10/06/2019 Reviewed by: Kath (Faiza.Revenue Stamp Clerk) SHANELLE Nielsen.ROLL TESTER - Fully Assesse d Reason for Visit: Hematuria [335] Cmt: urine taken but home health 2 weeks ago Primary Visit Diagnosis:Dysuria [R30.0] Other Visit Diagnoses:Microscopic hematuria [R31.29] Type 2 diabetes mellitus with diabetic neuropathy, with long-term current use of insulin (HCC) [E11.40, Z79.4] Order(s):UA DIP, URINE (POC) [[id number]] Order #: [id number] ec. #:[id number] nitrofurantoin monohydrate and macrocrystal (MACROBID) 100 m g capsuleTake 1 capsule by mouth twice daily with meals for 7 days.Disp: 14 capsuleRfl: 0 gabapentin (NEURONTIN) 300 mg capsuleTake 1 capsule by mouth daily at bedtime for 30 days.Disp: 30 capsuleRfl: 0 Prescriptions as of 10/06/2019 Sig: LATANOPROST 0.005 % EYE DROPS Use 1 Drop in both eyes three* COLESTIPOL 1 GRAM TABLET Take 1 g by mouth twice daily. INSULIN LISPRO (U-100) 100 UN* 20 units with breakfast, 20 u * CARVEDILOL 3.125 MG TABLET Take 2 tablets by mouth twice* INSULIN NPH ISOPHANE U-100 HU* 30 units subcutaneous once da * CHOLECALCIFEROL (VITAMIN D3) * Take 1 capsule by mouth once * TRAZODONE 50 MG TABLET Take 2 tablets by mouth daily* WARFARIN 3 MG TABLET 3 mg every Mon, Wed, Fri; 6 m* CLOPIDOGREL 75 MG TABLET Take 1 tablet by mouth once d* INSULIN SYRINGE U-100 WITH NE* 1 Each five times daily. LISINOPRIL 20 MG TABLET Take 1 tablet by mouth once d* FUROSEMIDE 40 MG TABLET Take 1 tablet by mouth twice * BIPAP Initiate BiPAP @ 24/18 cm of * FLASH GLUCOSE SENSOR KIT 1 Each four times daily. BACK BRACE 1 Device once daily as needed* AMIODARONE 200 MG TABLET Take 1 tablet by mouth once d* SPIRONOLACTONE 25 MG TABLET Take 1 tablet by mouth once d* ISOSORBIDE MONONITRATE ER 30 * Take 60 mg by mouth once ajay * BLOOD SUGAR DIAGNOSTIC STRIPS Use as instructed to check bl* RANOLAZINE ER 1,000 MG TABLET* Take 1 tablet by mouth twice * FENOFIBRATE NANOCRYSTALLIZED * Take 1 tablet by mouth once d * PANTOPRAZOLE 40 MG TABLET,DEL* Take 40 mg by mouth once ajay * LANCETS Use with [employer] Glucometer * ASPIRIN 81 MG TABLET Take 1 tablet by mouth once d* CRESTOR 40 MG TABLET Take one(1) tablet daily. 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*09/16/2007 Type 2 diabetes mellitus, uncontrolled (HCC) [E*02/16/2008 1 04/21/2014 ESOPHAGEAL REFLUX [K21.9] 03/06/2008 Benign Neoplasm of Colon [D12.6] 02/21/2009 Labyrinthitis [H83.09] 02/05/2010 06/07/2014 Dermatophytosis of nail [B35.1] 06/05/2011 Atrial fibrillation [I48.91] 07/03/2011 Anticoagulated on Coumadin [Z79.01] 07/03/2011 Chronic diarrhea [K52.9] 09/16/2011 06/07/2014 Class 2 severe obesity due to excess calories w*09/16/2011 Stasis dermatitis of both legs [I87.2] 04/05/2013 Foot callus [L84] 10/04/2014 Subsequent non-ST elevation (NSTEMI) myocardial*12/25/2014 Syncope [R55] 02/19/2015 Hyperlipidemia LDL goal <100 [E78.5] 02/19/2015 ASHD (arteriosclerotic heart disease) [I25.10] 02/19/2015 Neurocardiogenic syncope [R55] 03/01/2015 Dysphagia [R13.10] 03/01/2015 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 Balanitis [N48.1] 11/16/2016 Coronary angioplasty status [Z98.61] 11/16/2016 Elevated troponin I level [R79.89] 01/29/2013 More... Family history of cerebrovascular accident (CVA*01/26/2018 History of deep venous thrombosis [Z86.718] 01/26/2018 History of non-ST elevation myocardial infarcti*01/26/2018 Ischemic cardiomyopathy [I25.5] 11/20/2017 Leukocytosis [D72.829] 01/29/2013 More... JESSICA (obstructive sleep apnea) [G47.33] 07/26/2018 RLS (restless legs syndrome) [G25.81] 07/28/2018 Localized swelling, mass and lump, neck [R22.1] 07/28/2018 Acute on chronic systolic congestive heart fail*12/17/2018 Other instructions from your clinician: Urinalysis performed today in office Urine sent for culture, clinic to call if antibiotics need t o be changed Start macrobid 100 mg twice a day until completed Start gabapentin 300 mg at bedtime for burning to legs and d iscuss further with Dr. Valdez on schedule appointment Call clinic if burning with urination does not get better wi th antibiotics Return to the clinic or seek care at [facility] for any worsening signs or symptoms: such as fevers, chills, worsening pain, n ausea, or diarrhea. For severe symptoms seek care at the closest ER. P wagner of care, medicaiton side effects and management reviewed. Patient adrien balizes understanding of instructions. Healthy Habits: Recommend regular physical activity, nutrition and healthy e ating habits. Consume a variety of foods every day focusing on fruits, veg etables and lean meats). Eat foods low in fat, saturated fat and cholesterol. Eat a limited amount of salt and sodium. Drink adequate amounts of water and limit sugary drinks. Exercise portion control in meal selection. Establish a mindset of a wellness approach to health. Thank you for allowing me to provide your care today. I look forward to seeing you again and maintaining your health. Lacey Nguyen APN Student Prescriptions ordered this encounter Disp Refills Start End NITROFURANTOIN MONOHYDRATE AND MACROCR* 14 c* 0 10/06/2019 0 10/13/2019 Route: ORAL Sig: Take 1 capsule by mouth twice daily with meals for 7 da ys. GABAPENTIN 300 MG CAPSULE 30 c* 0 10/06/2019 11/05/2019 Route: ORAL Sig: Take 1 capsule by mouth daily at bedtime for 30 days. Disposition: Return in about 3 weeks (around 10/27/2019) for with Dr. Valdez . Follow-up and Disposition History Recorded Encounter Status:Closed by KATH NIELSEN DNP ROLL TESTER on 10/06/19 cnpn [facility] Normal 09-28-2019 [facility] LOVELY DEVI ([id number]) 1945 [place] Date Time Provider Department ([id number]) 09/28/19 BLOSSOM (PHARMACIST)BRIJESH During your visit today, we recorded the following informati on about you: ANSHUL SEBASTIAN 09/28/2019 10:53 AM Signed [facility] Referring provider: No ref. provider found Lovelyguadalupe Ornelasalmitajenny is a 73 year old year old male patient being evaluated today for anticoagulation Telemanagement visit. Patient is currently on the following anticoagulant Warfarin Labs PT INR (no units) Date Value 11/26/2018 Test sent to [facility]. 10/16/2017 1.8 01/16/2017 Test sent to [facility]. INR (POCT) (no units) Date Value 02/21/2019 2.9 01/24/2019 2.9 01/17/2019 3.2 INR Home CoaguChek (no units) Date Value 09/28/2019 3.0 09/14/2019 2.7 08/24/2019 2.5 Hemoglobin (g/dL) Date Value 01/14/2019 12.0 Hematocrit (%) Date Value 01/14/2019 37.9 Platelet Count (k/uL) Date Value 01/14/2019 154 Creatinine (mg/dL) Date Value 04/21/2019 1.35 01/14/2019 1.24 12/17/2018 1.34 Bilirubin, Total (mg/dL) Date Value 04/21/2019 0.6 ALT (U/L) Date Value 04/21/2019 33 AST (U/L) Date Value 04/21/2019 36 CrCl cannot be calculated (Unknown ideal weight.). ALLERGIES Allergen Reactions - Morphine - Rocephin [Ceftriaxo* Other: See Comments Hot flashes; redness to skin Indication for Warfarin: Paroxysmal atrial fibrillation (hcc ) Anticoagulated on coumadin Goal INR Range: 2 - 3 Assessment: ? INR result of 3.0 is therapeutic Plan: ? Advised patient to continue current weekly dose ? Next point of care INR check scheduled on 10/12/2019 ? LVMX for pt re: INR results. Advised to call t he PAC with concerns, refills needed, or med/diet changes. JOLEEN CERRATO, PHARMACIST Clinical Pharmacist, Pharmacy Anticoagulation Clinic Pharmacy Anticoagulation Clinic Pager: [phone] Description Patient has 3 mg tablets of warfarin. Patient takes in the m orning. . Allergies As of Date: 09/28/2019 Noted Allergy Reaction MORPHINE 02/28/2005 ROCEPHIN (CEFTRIAXONE SODIUM) 06/20/2014 14 - Other: See Com ments Comments: Hot flashes; redness to skin Date Reviewed: 09/16/2019 Reviewed by: Deniz Garsia - Fully Assessed Reason for Visit: Anticoagulation Telephone Fu [148] Cmt: Home INR result Primary Visit Diagnosis:Anticoagulated on Coumadin [Z79.01] Other Visit Diagnosis:Paroxysmal atrial fibrillation (HCC) [ I48.0] Prescriptions as of 09/28/2019 Sig: LATANOPROST 0.005 % EYE DROPS Use 1 Drop in both eyes three* COLESTIPOL 1 GRAM TABLET Take 1 g by mouth twice daily. INSULIN LISPRO (U-100) 100 UN* 20 units with breakfast, 20 u * CARVEDILOL 3.125 MG TABLET Take 2 tablets by mouth twice* INSULIN NPH ISOPHANE U-100 HU* 30 units subcutaneous once da * CHOLECALCIFEROL (VITAMIN D3) * Take 1 capsule by mouth once * TRAZODONE 50 MG TABLET Take 2 tablets by mouth daily* TRIAMCINOLONE ACETONIDE 0.1 %* Apply 1 application to affect * WARFARIN 3 MG TABLET 3 mg every Mon, Wed, Fri; 6 m* CLOPIDOGREL 75 MG TABLET Take 1 tablet by mouth once d* INSULIN SYRINGE U-100 WITH NE* 1 Each five times daily. LISINOPRIL 20 MG TABLET Take 1 tablet by mouth once d* FUROSEMIDE 40 MG TABLET Take 1 tablet by mouth twice * BIPAP Initiate BiPAP @ 24/18 cm of * FLASH GLUCOSE SENSOR KIT 1 Each four times daily. BACK BRACE 1 Device once daily as needed* AMIODARONE 200 MG TABLET Take 1 tablet by mouth once d* SPIRONOLACTONE 25 MG TABLET Take 1 tablet by mouth once d* ISOSORBIDE MONONITRATE ER 30 * Take 60 mg by mouth once ajay * BLOOD SUGAR DIAGNOSTIC STRIPS Use as instructed to check bl* RANOLAZINE ER 1,000 MG TABLET* Take 1 tablet by mouth twice * FENOFIBRATE NANOCRYSTALLIZED * Take 1 tablet by mouth once d * PANTOPRAZOLE 40 MG TABLET,DEL* Take 40 mg by mouth once ajay * LANCETS Use with Onetouch Glucometer * ASPIRIN 81 MG TABLET Take 1 tablet by mouth once d* CRESTOR 40 MG TABLET Take one(1) tablet daily. 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*09/16/2007 Type 2 diabetes mellitus, uncontrolled (HCC) [E*02/16/2008 1 04/21/2014 ESOPHAGEAL REFLUX [K21.9] 03/06/2008 Benign Neoplasm of Colon [D12.6] 02/21/2009 Labyrinthitis [H83.09] 02/05/2010 06/07/2014 Dermatophytosis of nail [B35.1] 06/05/2011 Atrial fibrillation [I48.91] 07/03/2011 Anticoagulated on Coumadin [Z79.01] 07/03/2011 Chronic diarrhea [K52.9] 09/16/2011 06/07/2014 Class 2 severe obesity due to excess calories w*09/16/2011 Stasis dermatitis of both legs [I87.2] 04/05/2013 Foot callus [L84] 10/04/2014 Subsequent non-ST elevation (NSTEMI) myocardial*12/25/2014 Syncope [R55] 02/19/2015 Hyperlipidemia LDL goal <100 [E78.5] 02/19/2015 ASHD (arteriosclerotic heart disease) [I25.10] 02/19/2015 Neurocardiogenic syncope [R55] 03/01/2015 Dysphagia [R13.10] 03/01/2015 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 Balanitis [N48.1] 11/16/2016 Coronary angioplasty status [Z98.61] 11/16/2016 Elevated troponin I level [R79.89] 01/29/2013 More... Family history of cerebrovascular accident (CVA*01/26/2018 History of deep venous thrombosis [Z86.718] 01/26/2018 History of non-ST elevation myocardial infarcti*01/26/2018 Ischemic cardiomyopathy [I25.5] 11/20/2017 Leukocytosis [D72.829] 01/29/2013 More... JESSICA (obstructive sleep apnea) [G47.33] 07/26/2018 RLS (restless legs syndrome) [G25.81] 07/28/2018 Localized swelling, mass and lump, neck [R22.1] 07/28/2018 Acute on chronic systolic congestive heart fail*12/17/2018 Encounter Status:Closed by BLOSSMO (PHARMACIST)JOLEEN on elban on 2019-09-26 CNPN Telephone ([facility]) Normal 09-26-2019 [facility] LOVELY DEVI ([id number]) 1945 [place] Date Time Provider Department ([id number]) 09/26/19 MORGAN VALDEZ III During your visit today, we recorded the following informati on about you: Cindi Eastman LPN 09/26/2019 11:56 AM Signed Melany with [facility] just left patient from a wound ch juan on his leg. He was complaining of blood in his underwear and painful urinatio n. Gathered urine samples. Looked good clear to pale. Call with verbal order t o PH: [phone]. She gathered enough urine to do the culture al so. She is not sure if he as something going on with the top of the p donna, he would not let he access this. Please advise Melany. Cindi Valdez III MD 09/26/2019 12:28 PM Signed await urine results. He should be evaluated in office. My schedule is pretty full. I recommend appointment with Jaun Land, or FEDERICO Solares MD, CMA, JAZZY 09/26/2019 1:29 PM Signed See message below, assist with scheduling with one of the ot her providers. AUDI Rowan LPN 09/27/2019 8:14 AM Signed Melany with [facility] is aski ng with verbage await urine results if this means provider is ok with uryinalysis. Call Melany with provider message. Jerilyn Valdez III MD 09/27/2019 8:36 AM Signed Yes?please obtain urinalysis FEDERICO Alatorre MD, CMA, [place] 09/27/2019 10:04 AM Signed Melany has been notified. Linwood Carpenter CMA Allergies As of Date: 09/26/2019 Noted Allergy Reaction MORPHINE 02/28/2005 ROCEPHIN (CEFTRIAXONE SODIUM) 06/20/2014 14 - Other: See Com ments Comments: Hot flashes; redness to skin Date Reviewed: 09/16/2019 Reviewed by: Deniz Garsia - Fully Assessed Reason for Visit: [facility] [Other] Prescriptions as of 09/26/2019 Sig: LATANOPROST 0.005 % EYE DROPS Use 1 Drop in both eyes three* COLESTIPOL 1 GRAM TABLET Take 1 g by mouth twice daily. INSULIN LISPRO (U-100) 100 UN* 20 units with breakfast, 20 u * CARVEDILOL 3.125 MG TABLET Take 2 tablets by mouth twice* INSULIN NPH ISOPHANE U-100 HU* 30 units subcutaneous once da * CHOLECALCIFEROL (VITAMIN D3) * Take 1 capsule by mouth once * TRAZODONE 50 MG TABLET Take 2 tablets by mouth daily* TRIAMCINOLONE ACETONIDE 0.1 %* Apply 1 application to affect * WARFARIN 3 MG TABLET 3 mg every Mon, Wed, Fri; 6 m* CLOPIDOGREL 75 MG TABLET Take 1 tablet by mouth once d* INSULIN SYRINGE U-100 WITH NE* 1 Each five times daily. LISINOPRIL 20 MG TABLET Take 1 tablet by mouth once d* FUROSEMIDE 40 MG TABLET Take 1 tablet by mouth twice * BIPAP Initiate BiPAP @ 24/18 cm of * FLASH GLUCOSE SENSOR KIT 1 Each four times daily. BACK BRACE 1 Device once daily as needed* AMIODARONE 200 MG TABLET Take 1 tablet by mouth once d* SPIRONOLACTONE 25 MG TABLET Take 1 tablet by mouth once d* ISOSORBIDE MONONITRATE ER 30 * Take 60 mg by mouth once ajay * BLOOD SUGAR DIAGNOSTIC STRIPS Use as instructed to check bl* RANOLAZINE ER 1,000 MG TABLET* Take 1 tablet by mouth twice * FENOFIBRATE NANOCRYSTALLIZED * Take 1 tablet by mouth once d * PANTOPRAZOLE 40 MG TABLET,DEL* Take 40 mg by mouth once ajay * LANCETS Use with Onetouch Glucometer * ASPIRIN 81 MG TABLET Take 1 tablet by mouth once d* CRESTOR 40 MG TABLET Take one(1) tablet daily. 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*09/16/2007 Type 2 diabetes mellitus, uncontrolled (HCC) [E*02/16/2008 1 04/21/2014 ESOPHAGEAL REFLUX [K21.9] 03/06/2008 Benign Neoplasm of Colon [D12.6] 02/21/2009 Labyrinthitis [H83.09] 02/05/2010 06/07/2014 Dermatophytosis of nail [B35.1] 06/05/2011 Atrial fibrillation [I48.91] 07/03/2011 Anticoagulated on Coumadin [Z79.01] 07/03/2011 Chronic diarrhea [K52.9] 09/16/2011 06/07/2014 Class 2 severe obesity due to excess calories w*09/16/2011 Stasis dermatitis of both legs [I87.2] 04/05/2013 Foot callus [L84] 10/04/2014 Subsequent non-ST elevation (NSTEMI) myocardial*12/25/2014 Syncope [R55] 02/19/2015 Hyperlipidemia LDL goal <100 [E78.5] 02/19/2015 ASHD (arteriosclerotic heart disease) [I25.10] 02/19/2015 Neurocardiogenic syncope [R55] 03/01/2015 Dysphagia [R13.10] 03/01/2015 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 Balanitis [N48.1] 11/16/2016 Coronary angioplasty status [Z98.61] 11/16/2016 Elevated troponin I level [R79.89] 01/29/2013 More... Family history of cerebrovascular accident (CVA*01/26/2018 History of deep venous thrombosis [Z86.718] 01/26/2018 History of non-ST elevation myocardial infarcti*01/26/2018 Ischemic cardiomyopathy [I25.5] 11/20/2017 Leukocytosis [D72.829] 01/29/2013 More... JESSICA (obstructive sleep apnea) [G47.33] 07/26/2018 RLS (restless legs syndrome) [G25.81] 07/28/2018 Localized swelling, mass and lump, neck [R22.1] 07/28/2018 Acute on chronic systolic congestive heart fail*12/17/2018 Encounter Status:Closed by LINWOOD CARPENTER CMA on 09/27/19 progress on 2019-08 PROGRESS HNO ID: [id number] Normal 09-16-2019 [facility] Author: Deniz Garsia [place] ([id number]) Service: ? Author Type: Nurse Practitioner Type: Progress Notes Filed: 09/16/2019 2:19 PM Note Text: Chief Complaint Patient presents with: Hospital Follow Up HPI Lovely Devi is a 73 year old male who presents he re today for Hospital Discharge Follow up. ADM [facility] 09/04-09/08/2019 for CHF. Follows with Dr. Perry and had f/u 10/07/2019. Admitted with Acute on chronic heart failure with reduced EF -chest CTA without PE. BNP reported as normal, however he had significa nt lower extremity swelling. Echo showed EF of 47%, IV lasix initiate d and transitioned to po Lasix as discharge of 40 mg bid. Niya wrap s of LE and f/u with Cardiology. Patient notes ongoing SOB, denies cough or orthopnea. Lower extremity edema with cellulitis of RLE with chronic ve nous stasis dermatitis and stasis ulcers. Venous doppler RLE negative fo r DVT. Treated with IV cefazolin and transitioned to oral Keflex to complet e the course. Culture + staph aureus. Treatment includes washing bilateral LE daily with soap and water, pat dry. Place Aquacel Ag to the open areas of the RLE. Cover with dry dressing and wrap with Kerlix and Niya wrap. O rder to f/u with [facility] at discharge. States he has H H Nurse that comes few times/week and will change the dressing and daught er does it the rest of the days. Recent left 5th metatarsal fracture, non-displaced -Followin g with Dr. Ramos. Partial weightbearing and soft cast in place. Stat es healing slowly. Not sleeping. Reports both lower legs, burning, itching pa in. Twitchy mainly at night, sx awaken him from sleep. States few weeks ago he reports not sleeping for [address] Puente stopped requip and GBN back in December and placed on Trazodone 50 mg at hs. [place] leg sx wer e related to CHF and the above meds were not effective. Patient continues to take one tablet ropinerole. States he will retire to bed, then after few hours when awakened he's up in his rocker and then up and down rest of the night. Insulin Dependent DM: Taking 32 units bid of NPH insulin and Humalog 20 units tid. He notes occasional hypoglycemia episodes vague a s to how often, BS was 50 this am and then 82 after breakfast. He rep orts 7 day cGD=495, 14 day qSC=733, and 90 day dFC=547. He relates he d oes not feel the low BS until it reaches below 50. Past medical history, appointments, medications, allergies r orly. Previous Medical History PAST MEDICAL HISTORY Diagnosis Date - ASHD (arteriosclerotic heart disease) 02/19/2015 - Atrial fibrillation (HCC) 07/03/2011 - Automatic implantable cardiac defibrillator in situ - Petit's esophagus with esophagitis 03/01/2015 - Benign neoplasm of colon - Chronic diarrhea 09/16/2011 - Coronary atherosclerosis of unspecified type of vessel, na tive or graft s/p PR in 1985 - Diverticulosis of colon (without mention of hemorrhage) - Duodenitis without mention of hemorrhage - Dysphagia 03/01/2015 - Facet arthritis of lumbar region 07/14/2017 - GERD (gastroesophageal reflux disease) 06/10/12 - Heart attack (HCC) - Labyrinthitis 02/05/2010 - Neurocardiogenic syncope 03/01/2015 - Obesity 09/16/2011 - JESSICA treated with BiPAP DME [employer] - Other and unspecified hyperlipidemia - Other specified forms of chronic ischemic heart disease - Paroxysmal ventricular tachycardia (HCC) - Snoring - Stroke (HCC) - Tinea of nail 01/13/2011 - Type 2 diabetes mellitus with stage 3 chronic kidney disea se, with long-term current use of insulin (HCC) 06/15/2017 - Unspecified essential hypertension Previous Surgical History PAST SURGICAL HISTORY Procedure Laterality Date - COLONOSCOP W/ OR W/O [facility] SPEC 12/21/2017 Dr. Anthony-repeat 3 years-11/2020 - COLONOSCOPY W/BX 02/21/09 - EGD W/O OR W/BRUSH/WASH EGD - EGD W/O OR W/BRUSH/WASH 02/16/08 EGD inpt [facility] H-pylori negative - EGD W/O OR W/BRUSH/WASH 05/24/15 EGD - EGD W/O OR W/BRUSH/WASH 12/21/2017 Dr. Anthony-repeat 3 years-11/2020 - HEART CATHETERIZATION 12/15/2014 [facility] - see scanned documents - HEART SURGERY HX - LEFT HEART CATH,PERCUTANEOUS Cardiac cath, L heart - LEFT HEART CATH,PERCUTANEOUS 06/20/11 Cardiac cath, L heart - PERC TRANSL COR ANGIO Percutaneous Transluminal Coronary Angio Status Family History FAMILY HISTORY Problem Relation Age of Onset - Stroke Mother - Heart Mother - Cancer Father prostate - Heart Father - Breast Cancer Sister - Breast Cancer Sister - Diabetes Sister - Diabetes Brother - Diabetes Brother Patient Allergies ALLERGIES Allergen Reactions - Morphine - Rocephin [Ceftriaxo* Other: See Comments Hot flashes; redness to skin Current Medications Current Outpatient Medications on File Prior to Visit Medication Sig - warfarin (COUMADIN) 3 mg tablet 3 mg every Mon, Wed, Fri; 6 mg all other days - clopidogrel (PLAVIX) 75 mg tablet Take 1 tablet by mouth o nce daily. - Melatonin 5 mg cap Take 1 capsule by mouth once daily. 2-3 hrs prior to bedtime - Insulin Syringe-Needle U-100 (BD ULTRAFINE INSULIN) 1 mL 3 1 gauge x 5/16 1 Each five times daily. - lisinopril (ZESTRIL, PRINIVIL) 20 mg tablet Take 1 tablet by mouth once daily. - furosemide (LASIX) 40 mg tablet Take 1 tablet by mouth twi ce daily. - ergocalciferol 50,000 unit capsule (VITAMIN D2, DRISDOL) T tana 1 capsule by mouth one time a week. - traZODone (DESYREL) 50 mg tablet Take 1 tablet by mouth da alisha at bedtime. - rOPINIRole (REQUIP) 0.5 mg tablet Take 1 tablet by mouth d aily at bedtime. - insulin lispro (HUMALOG U-100 INSULIN) 100 unit/mL injecti on 18 units with breakfast, 17 units at lunch, and 24 units with supper. - BIPAP Initiate BiPAP @ 24/18 cm of water with humidificati on. Mask (per patient preference), chin strap, filters, tubing / heated tu jin, heated humidity and lifetime supplies. Dx. JESSICA G47.33 327.23 - fax compliance download to [phone] - flash glucose sensor (FREESTYLE ANITRA 14 DAY SENSOR) kit 1 Each four times daily. - insulin NPH human (HUMULIN N NPH U-100 INSULIN) injection 32 units subcutaneous once daily before breakfast and 32 units at bed time - Back Brace misc 1 Device once daily as needed. size large - amiodarone (PACERONE) 200 mg tablet Take 1 tablet by mouth once daily. - spironolactone (ALDACTONE) 25 mg tablet Take 1 tablet by m outh once daily. - amLODIPine (NORVASC) 10 mg tablet Take 0.5 tablets by mout h once daily. - carvedilol (COREG) 3.125 mg tablet Take 1 tablet by mouth twice daily. for one week starting on 06/20/16 then will be taking 6.25 x 2 daily . - isosorbide mononitrate ER (IMDUR) 30 mg 24 hr tablet Take 1 tablet by mouth once daily. - blood sugar diagnostic ([employer] BLOOD GLUCOSE SYSTEM) test strip Use as instructed to check blood sugar 3 to 4 times daily DM: yes I nsulin: yes DX:11.9 - ranolazine SR (RANEXA) 1,000 mg Tb12 Take 1 tablet by mout h twice daily. - fenofibrate nanocrystallized (TRICOR) 145 mg tablet Take 1 tablet by mouth once daily. - pantoprazole DR (PROTONIX) 40 mg tablet Take 40 mg by mout h once daily. - Lancets (ONE TOUCH ULTRASOFT LANCETS) lancets Use with One touch Glucometer as directed - Aspirin 81 mg ORAL Tab Take 1 tablet by mouth once daily. Take with food. - CRESTOR 40 MG TAB Take one(1) tablet daily. - NITROGLYCERIN 0.3 MG SUBLINGUAL TAB as necessary No current facility-administered medications on file prior t o visit. Social History Social History Tobacco Use - Smoking status: Former Smoker Years: 15.00 Types: Cigars Last attempt to quit: 08/12/2007 Years since quittin.1 - Smokeless tobacco: Never Used - Tobacco comment: 2-3 per day Substance Use Topics - Alcohol use: No Frequency: Never Binge frequency: Never - Drug use: No Review of Symptoms REVIEW OF SYSTEMS GENERAL: No weight loss, malaise or fevers NECK: Negative for lumps, goiter, pain and significant neck swelling RESPIRATORY: Negative for cough, hemoptysis, wheezing, COPD, dyspnea + shortness of breath CARDIOVASCULAR: See HPI GI: No nausea, vomiting, or diarrhea and No heartburn or ref lux symptoms MUSCULOSKELETAL: Healing left 5th Metatarsal fx. PSYCH: See HPI ENDOCRINE: Negative for cold or heat intolerance, polyuria, polydipsia and goiter EXAM: BP 122/70 Pulse 68 Temp 36.6 ?C (97.9 ?F) Resp 20 General Appearance: Well appearing, alert, in no acute distr ess, well-hydrated, well nourished., Obese and antalgic gait.. Eyes: Anicteric sclera. Pupils are equally round and reactiv e to light. Extraocular movements are intact. . Neck: Supple, no adenopathy; thyroid symmetric, normal size, no bruits. Lungs: Lungs clear to auscultation. No wheezing, rhonchi, ra les.. Heart: RRR without murmur, gallop, or rubs. No ectopy. Extremities: Left foot in soft shoe/boot, with niya wraps to mid calf. RLE with statsis dermatitis, venous staining note, awe wrap on t o mid calf with discoloration noted to just below knee. 2+ non-pitting edema. Dressing and niya wraps intact. Psych: Attitude - cooperative, easily engaged in conversatio n Affect - Euthymic, normal mood Mental status: Alert. Speech is clear and fluent with good r epetition, comprehension Appearance - Normal hygiene and grooming appropriate Coordination: No abnormal or extraneous movements. Gait/Stance: Posture is normal Health Maintenance List SHINGRIX VACCINE(1 of 2) due on 10/20/1995 ADVANCE DIRECTIVE DISCUSSION due on 2010 DIABETIC FOOT EXAM due on 07/16/2019 HBA1C due on 10/20/2019 URINE ALBUMIN:CREATININE RATIO due on 01/15/2020 LDL CHOLESTEROL due on 01/15/2020 HEMOGLOBIN/HEMATOCRIT due on 01/15/2020 SERUM CREATININE due on 04/21/2020 BP CONTROLLED (<130/80) due on 04/28/2020 DILATED RETINAL EXAM due on 08/10/2020 ANNUAL PCP TEAM CHRONIC DISEASE VISIT due on 09/04/2020 DTAP,TDAP,TD(3 - Td) due on 10/17/2027 COLORECTAL CANCER SCREENING,SEE MODIFIER due on 01/07/2028 ABDOMINAL AORTIC ANEURYSM SCREENING Completed INFLUENZA Completed HEPATITIS C SCREENING Completed PNEUMOVAX AGE 65 AND OVER WITH 5YR LOOKBACK Completed Data reviewed Hospital reports, Discharge Summary, CTA chest, CXR, Foot Xr ay, and labs reviewed. ASSESSMENT/PLAN: 1. 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 2. Type 2 diabetes mellitus with stage 3 chronic kidney dise ase, with long-term current use of insulin (HCC) - ICD9: 250.40, 585.3 , V58.67, ICD10: E11.22, N18.3, Z79.4 Controlled. - Decrease NPH Insulin to 30 units in the morning and keep a t 32 in the evening. -Refer to Pharmacy, concerned about hypoglycemia unawares. - Discussed diabetic education issues of hypoglycemic sympto ms and medications- side effects and need for compliance with patie nt. - CONSULT TO AMBULATORY CLINIC PHARMACY 3. Essential hypertension - ICD9: 401.9, ICD10: I10 - good control - Continue current medication(s) - Recommend home blood pressure monitoring, to bring results in on next visit - Goal of BP <130/80 4. Cellulitis of right lower extremity - ICD9: 682.6, ICD10: L03.115 -Reports slow healing of venous ulceration. Following with [facility]. 5. Stasis dermatitis with venous ulcer of lower extremity du e to chronic peripheral venous hypertension (HCC) - ICD9: 459.31, ICD10: I87.339, L97.909 -Will add Triamcinolone cream sparingly bid for 2 weeks than apply Gold [place] and see if helpful with the itching. - TRIAMCINOLONE ACETONIDE 0.1 % TOPICAL CREAM 6. Closed nondisplaced fracture of fifth metatarsal bone of left foot with routine healing, subsequent encounter - ICD9: V54.19, ICD10: S92.355D -Following with Podiatry. 7. Controlled type 2 diabetes mellitus without complication, with long-term current use of insulin ([facility]) - ICD9: 250.00, V58.6 7, ICD10: E11.9, Z79.4 -As above in #2. - INSULIN LISPRO (U-100) 100 UNIT/ML SUBCUTANEOUS SOLUTION - INSULIN NPH ISOPHANE U-100 HUMAN 100 UNIT/ML SUBCUTANEOUS SUSPENSION - CONSULT TO AMBULATORY CLINIC PHARMACY 8. Vitamin D deficiency - ICD9: 268.9, ICD10: E55.9 - VITAMIN D 25 HYDROXY - CHOLECALCIFEROL (VITAMIN D3) 50 MCG (2,000 UNIT) CAPSULE 9. Sleep difficulties - ICD9: 780.50, ICD10: G47.9 Will have him DC Ropinerol and increase Trazodone to 100 mg (2 tabs) qhs and see if that helps. Also recommend he add pill or blanket or wedge underneath mattress at the foot of the bed to help elevate h is legs. - TRAZODONE 50 MG TABLET Deniz Garsia, MSN GUEST SERVICES AGENT.ROLL TESTER cnov on 2019-09-16 CNOV Office Visit (FAMPWS) Normal 09-16-19 [facility] LOVELY DEVI ([id number]) 1945 [facility] Date Time Provider Department ([id number]) 09/16/19 9:40 AM DENIZ GARSIA During your visit today, we recorded the following informati on about you: Temperature Pulse Respiration Blood pressure 97.9 degrees 68/minute 20/minute 122/70 Deniz Garsia, MSN GUEST SERVICES AGENT.ROLL TESTER 09/16/2019 2:19 PM Signed Chief Complaint Patient presents with: Hospital Follow Up HPI Lovely Devi is a 73 year old male who presents he re today for Hospital Discharge Follow up. ADM [facility] 09/04- 020 for CHF. Follow[address] with Dr. Perry and had f/u 10/07/2019. Admitted with Acute on chronic heart sofy lure with reduced EF-chest CTA without PE. BNP reported as normal, however he had significant lower extremity swelling. Echo showed EF of 47%, IV lasix initiated and cortes sitioned to po Lasix as discharge of 40 mg bid. Niya wraps of LE and f/u wit h Cardiology. Patient notes ongoing SOB, denies cough or orthopnea. Lower extremity edema with cellulitis of RLE with chronic ve nous stasis dermatitis and stasis ulcers . Venous doppler RLE negative for DVT. Treated with IV cefazolin and transitioned to oral Ke flex to complete the course. Culture + staph aureus. Treatment includes washing bilateral LE daily with soap and water, pat dry. Place Aquacel Ag to the open are as of the RLE. Cover with dry dressing and wrap with Kerlix and Niya wr ap. Order to f/u with [facility] at discharge. States he has HH Nurse that comes f ew times/week and will change the dressing and daughter does it the rest of . Recent left 5th metatarsal fracture, non-displaced -Followin g with Dr. Ramos. Partial weightbearing and soft cast in place. States healing slowly. Not sleeping. Reports both lower legs, burning, itching pain. Twitchy mainly at night, sx awaken him from sleep. States few weeks ago he reports not sleeping for [address] Puente stopped requip and GBN back in December and placed on Trazodone 50 mg at hs. [place] le g sx were related to CHF and the above meds were not effective. Patient continues to take one table t ropinerole. States he will retire to bed , then after few hours when awakened he's up in his rocker and then up and down rest of the night. Insulin Dependent DM: Taking 32 units bid of NPH insulin and Humalog 20 units tid. He notes occasional hyp oglycemia episodes vague as to how often, BS was 50 this am and then 82 after breakfast. He reports 7 day aFP=322, 14 day rEV=743, and 90 day aNO=187. He relates he does not feel the low BS until it reaches below 50. Past medical history, appointments, medications, allergies r orly. Previous Medical History PAST MEDICAL HISTORY Diagnosis Date - ASHD (arteriosclerotic heart disease) 02/19/2015 - Atrial fibrillation (HCC) 07/03/2011 - Automatic implantable cardiac defibrillator in situ - Petit's esophagus with esophagitis 03/01/2015 - Benign neoplasm of colon - Chronic diarrhea 09/16/2011 - Coronary atherosclerosis of unspecified type of vessel, na tive or graft s/p PR in 1985 - Diverticulosis of colon (without mention of hemorrhage) - Duodenitis without mention of hemorrhage - Dysphagia 03/01/2015 - Facet arthritis of lumbar region 07/14/2017 - GERD (gastroesophageal reflux disease) 06/10/12 - Heart attack (HCC) - Labyrinthitis 02/05/2010 - Neurocardiogenic syncope 03/01/2015 - Obesity 09/16/2011 - JESSICA treated with BiPAP DME [employer] - Other and unspecified hyperlipidemia - Other specified forms of chronic ischemic heart disease - Paroxysmal ventricular tachycardia (HCC) - Snoring - Stroke (HCC) - Tinea of nail 01/13/2011 - Type 2 diabetes mellitus with st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, with long-term current use of insulin ([facility]) 06/15/2017 - Unspecified essential hypertension Previous Surgical History PAST SURGICAL HISTORY Procedure Laterality Date - COLONOSCOP W/ OR W/O BRSH SPEC 12/21/2017 Dr. Anthony-repeat 3 years-11/2020 - COLONOSCOPY W/BX 02/21/09 - EGD W/O OR W/BRUSH/WASH EGD - EGD W/O OR W/BRUSH/WASH 02/16/08 EGD inpt [facility] H-pylori negative - EGD W/O OR W/BRUSH/WASH 05/24/15 EGD - EGD W/O OR W/BRUSH/WASH 12/21/2017 Dr. Anthony-repeat 3 years-11/2020 - HEART CATHETERIZATION 12/15/2014 [facility] - see scanned documents - HEART SURGERY HX - LEFT HEART CATH,PERCUTANEOUS Cardiac cath, L heart - LEFT HEART CATH,PERCUTANEOUS 06/20/11 Cardiac cath, L heart - PERC TRANSL COR ANGIO Percutaneous Transluminal Coronary Angio Status Family History FAMILY HISTORY Problem Relation Age of Onset - Stroke Mother - Heart Mother - Cancer Father prostate - Heart Father - Breast Cancer Sister - Breast Cancer Sister - Diabetes Sister - Diabetes Brother - Diabetes Brother Patient Allergies ALLERGIES Allergen Reactions - Morphine - Rocephin [Ceftriaxo* Other: See Comments Hot flashes; redness to skin Current Medications Current Outpatient Medications on File Prior to Visit Medication Sig - warfarin (COUMADIN) 3 mg t ablet 3 mg every Mon, Wed, Fri; 6 mg all other days - clopidogrel (PLAVIX) 75 mg tablet Take 1 tablet by mouth o nce daily. - Melatonin 5 mg cap Take 1 capsule by mouth once daily. 2-3 hrs prior to bedtime - Insulin Syringe-Needle U-100 (BD ULTRAFINE INSULIN) 1 mL 31 gauge x 5/16 1 Each five times daily. - lisinopril (ZESTRIL, PRINIVIL) 20 mg tablet Take 1 tablet by mouth once daily. - furosemide (LASIX) 40 mg tablet Take 1 tablet by mouth twi ce daily. - ergocalciferol 50,000 unit capsule (VITAMIN D2, DRIS DOL) Take 1 capsule by mouth one time a week. - traZODone (DESYREL) 50 mg tablet Take 1 tablet by mouth daily at bedtime. - rOPINIRole (REQUIP) 0.5 mg tablet Take 1 tablet by m outh daily at bedtime. - insulin lispro (HUMALOG U-100 INSULIN) 100 unit/mL i njection 18 units with breakfast, 17 units at lunch, and 24 units with supper. - BIPAP Initiate BiPAP @ 24/18 cm of water with humidificati on. Mask (per patient preference), chin strap, filters, tubing / heated tu jin, heated humidity and lifetime supplies. Dx. JESSICA G47.33 327.23 - fax compliance download to [phone] - flash glucose sensor (FREESTYLE ANITRA 14 DAY SENSOR) kit 1 Each four times daily. - insulin NPH human (HUMULIN N NPH U-100 INSULIN) injection 32 units subcutaneous once daily before breakfast and 32 units at bed time - Back Brace misc 1 Device once daily as needed. size large - amiodarone (PACERONE) 200 mg tablet Take 1 tablet by mouth once daily. - spironolactone (ALDACTONE) 25 mg tablet Take 1 table t by mouth once daily. - amLODIPine (NORVASC) 10 mg tablet Take 0.5 tablets by mout h once daily. - carvedilol (COREG) 3.125 mg tablet Take 1 tablet by mouth twice daily. for one week starting on 06/20/16 then will be taking 6.25 x 2 da alisha . - isosorbide mononitrate ER (IMDUR) 30 mg 24 hr tablet Take 1 tablet by mouth once daily. - blood sugar diagnostic ([employer] BLOOD GLUCOSE SYSTEM) test strip Use as instructed to check blood ureña gar 3 to 4 times daily DM: yes Insulin: yes DX:11.9 - ranolazine SR (RANEXA) 1,000 mg Tb12 Take 1 tablet by mout h twice daily. - fenofibrate nanocrystallized (TRICOR) 145 mg tablet Take 1 tablet by mouth once daily. - pantoprazole DR (PROTONIX) 40 mg tablet Take 40 mg by mout h once daily. - Lancets (ONE TOUCH ULTRASO FT LANCETS) lancets Use with [employer] Glucometer as directed - Aspirin 81 mg ORAL Tab Take 1 tablet by mouth once daily . Take with food. - CRESTOR 40 MG TAB Take one(1) tablet daily. - NITROGLYCERIN 0.3 MG SUBLINGUAL TAB as necessary No current facility-administered medications on file prior t o visit. Social History Social History Tobacco Use - Smoking status: Former Smoker Years: 15.00 Types: Cigars Last attempt to quit: 08/12/2007 Years since quittin.1 - Smokeless tobacco: Never Used - Tobacco comment: 2-3 per day Substance Use Topics - Alcohol use: No Frequency: Never Binge frequency: Never - Drug use: No Review of Symptoms REVIEW OF SYSTEMS GENERAL: No weight loss, malaise or fevers NECK: Negative for lumps, goiter, pain and significant neck swelling RESPIRATORY: Negative for cough, hemoptysis, wheezing, COPD, dyspnea + shortness of breath CARDIOVASCULAR: See HPI GI: No nausea, vomiting, or diarrhea and No heartburn or ref lux symptoms MUSCULOSKELETAL: Healing left 5th Metatarsal fx. PSYCH: See HPI ENDOCRINE: Negative for cold or heat intolerance, polyuria, polydipsia and goiter EXAM: BP 122/70 Pulse 68 Temp 36.6 ?C (97.9 ?F) Resp 20 General Appearance: Well pili earing, alert, in no acute distress, well-hydrated, well nourished., Obese and antalgic gait.. Eyes: Anicteric sclera. Pupils are equally round and reactiv e to light. Extraocular movements are intact. . Neck: Supple, no adenopathy; thyroid symmetric, normal size, no bruits. Lungs: Lungs clear to auscultation. No wheezing, rhonchi, ra les.. Heart: RRR without murmur, gallop, or rubs. No ectopy. Extremities: Left foot in soft shoe/boot , with niya wraps to mid calf. RLE with statsis dermatitis, venous staining note, awe wrap on to mid calf with discoloration noted to just below knee. 2+ non-pitting edema. Dressing and niya wraps intact. Psych: Attitude - cooperative, easily engaged in conversatio n Affect - Euthymic, normal mood Mental status: Alert. Speech is clear and fluent with good r epetition, comprehension Appearance - Normal hygiene and grooming appropriate Coordination: No abnormal or extraneous movements. Gait/Stance: Posture is normal Health Maintenance List SHINGRIX VACCINE(1 of 2) due on 10/20/1995 ADVANCE DIRECTIVE DISCUSSION due on 2010 DIABETIC FOOT EXAM due on 07/16/2019 HBA1C due on 10/20/2019 URINE ALBUMIN:CREATININE RATIO due on 01/15/2020 LDL CHOLESTEROL due on 01/15/2020 HEMOGLOBIN/HEMATOCRIT due on 01/15/2020 SERUM CREATININE due on 04/21/2020 BP CONTROLLED (<130/80) due on 04/28/2020 DILATED RETINAL EXAM due on 08/10/2020 ANNUAL PCP TEAM CHRONIC DISEASE VISIT due on 09/04/2020 DTAP,TDAP,TD(3 - Td) due on 10/17/2027 COLORECTAL CANCER SCREENING,SEE MODIFIER due on 01/07/2028 ABDOMINAL AORTIC ANEURYSM SCREENING Completed INFLUENZA Completed HEPATITIS C SCREENING Completed PNEUMOVAX AGE 65 AND OVER WITH 5YR LOOKBACK Completed Data reviewed Hospital reports, Discharge Summary, CTA chest, CXR, Foot Xr ay, and labs reviewed. ASSESSMENT/PLAN: 1. 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 2. Type 2 diabetes mellitus with st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, with long-term current use of insulin ([facility]) - ICD9: 250.40, 585.3, V58.67, ICD10: E11.22, N18.3, Z79.4 Controlled. - Decrease NPH Insulin to 30 units in the morning and keep a t 32 in the evening. -Refer to Pharmacy, concerned about hypoglycemia unawares. - Discussed diabetic education issues of hypoglycemic sympto ms and medications- side effects and need for compliance with patie nt. - CONSULT TO AMBULATORY CLINIC PHARMACY 3. Essential hypertension - ICD9: 401.9, ICD10: I10 - good control - Continue current medication(s) - Recommend home blood pressure monitoring, to b ring results in on next visit - Goal of BP <130/80 4. Cellulitis of right lower extremity - ICD9: 682.6, ICD10: L03.115 -Reports slow healing of venous ulceration. Following with [facility]. 5. Stasis dermatitis with venous ulcer of lower extremity du e to chronic peripheral venous hypertension ([facility]) - ICD9: 459.31, I CD10: I87.339, L97.909 -Will add Triamcinolone cream sparingly bid for 2 week s than apply Gold [place] and see if helpful with the itching. - TRIAMCINOLONE ACETONIDE 0.1 % TOPICAL CREAM 6. Closed nondisplaced fracture of fifth metatarsal bone of left foot with routine healing, subsequent encounter - ICD9: V54.19, ICD10: S92.355D -Following with Podiatry. 7. Controlled type 2 diabetes mellitus without complicatio n, with long-term current use of insulin ([facility]) - ICD9: 250.00, V58.67, ICD10: E11.9, Z79.4 -As above in #2. - INSULIN LISPRO (U-100) 100 UNIT/ML SUBCUTANEOUS SOLUTION - INSULIN NPH ISOPHANE U-100 HUMAN 100 UNIT/ML SUBCUTANEOUS SUSPENSION - CONSULT TO AMBULATORY CLINIC PHARMACY 8. Vitamin D deficiency - ICD9: 268.9, ICD10: E55.9 - VITAMIN D 25 HYDROXY - CHOLECALCIFEROL (VITAMIN D3) 50 MCG (2,000 UNIT) CAPSULE 9. Sleep difficulties - ICD9: 780.50, ICD10: G47.9 Will have him DC Ropinerol and increase Trazodone to 1 00 mg (2 tabs) qhs and see if that helps. Also recommend he add pill or blank et or wedge underneath mattress at the foot of the bed to help elevate his legs. - TRAZODONE 50 MG TABLET Deniz Garsia, MSN GUEST SERVICES AGENT.ROLL TESTER Referring Provider: SELF [[id number]] Allergies As of Date: 09/16/2019 Noted Allergy Reaction MORPHINE 02/28/2005 ROCEPHIN (CEFTRIAXONE SODIUM) 06/20/2014 14 - Other: See Com ments Comments: Hot flashes; redness to skin Date Reviewed: 09/16/2019 Reviewed by: Deniz Garsia - Fully Assessed Reason for Visit: Hospital Follow Up [177] Primary Visit Diagnosis: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) ([facility]) [I50.43] Other Visit Diagnoses:Type 2 diabetes mellitus with st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, with long-term current use of insulin ([facility]) [E11.22, N18.3, Z79.4] Essential hypertension [I10] Cellulitis of right lower extremity [L03.115] Stasis 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 ([facility]) [I87.339, L97.909] Closed nondisplaced fracture of fifth metatarsal bone of left foot with routine healing, subsequent encounter [S92.847D] Controlled type 2 diabetes mellitus without complication, with long-term current use of insulin ([facility]) [E11.9, Z79.4] Vitamin D 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] Sleep difficulties [G47.9] Order(s):insulin lispro (HUMALOG U-100 INSULIN) 100 unit/mL [id number] units with breakfast, 20 units at lunch, and 20 units with supper. Disp: Rfl: carvedilol (COREG) 3.125 mg tabletTake 2 tablets by mouth tw ice daily. for one week starting on 06/20/16 then will be taking 6.25 x 2 daily .Disp: Rfl: 0 insulin NPH injection (HumuLIN N,NovoLIN N)30 units subcutan eous once daily before breakfast and 32 units at bedtimeDisp: 60 mLRfl : 3 CONSULT TO AMBULATORY CLINIC PHARMACY [19990605] Order #: [id number]: 1 VITAMIN D 25 HYDROXY [SQVITD] Order #: [id number] FUTURE Cholecalciferol, Vitamin D3, 50 mcg (2,000 unit) capTake 1 c apsule by mouth once daily.Disp: Rfl: traZODone (DESYREL) 50 mg tabletTake 2 tablets by mouth ajay y at bedtime.Disp: 180 tabletRfl: 1 triamcinolone acetonide (KENALOG) 0.1 % creamApply 1 applica tion to affected area twice daily for 14 days. Apply sparingly to ar ea for rash/itching.Disp: 80 gRfl: 1 Prescriptions as of 09/16/2019 Sig: LATANOPROST 0.005 % EYE DROPS Use 1 Drop in both eyes three* COLESTIPOL 1 GRAM TABLET Take 1 g by mouth twice daily. INSULIN LISPRO (U-100) 100 UN* 20 units with breakfast, 20 u * CARVEDILOL 3.125 MG TABLET Take 2 tablets by mouth twice* INSULIN NPH ISOPHANE U-100 HU* 30 units subcutaneous once da * TRAZODONE 50 MG TABLET Take 2 tablets by mouth daily* WARFARIN 3 MG TABLET 3 mg every Mon, Wed, Fri; 6 m* CLOPIDOGREL 75 MG TABLET Take 1 tablet by mouth once d* INSULIN SYRINGE U-100 WITH NE* 1 Each five times daily. LISINOPRIL 20 MG TABLET Take 1 tablet by mouth once d* FUROSEMIDE 40 MG TABLET Take 1 tablet by mouth twice * BIPAP Initiate BiPAP @ 24/18 cm of * FLASH GLUCOSE SENSOR KIT 1 Each four times daily. BACK BRACE 1 Device once daily as needed* AMIODARONE 200 MG TABLET Take 1 tablet by mouth once d* SPIRONOLACTONE 25 MG TABLET Take 1 tablet by mouth once d* ISOSORBIDE MONONITRATE ER 30 * Take 60 mg by mouth once ajay * BLOOD SUGAR DIAGNOSTIC STRIPS Use as instructed to check bl* RANOLAZINE ER 1,000 MG TABLET* Take 1 tablet by mouth twice * FENOFIBRATE NANOCRYSTALLIZED * Take 1 tablet by mouth once d * PANTOPRAZOLE 40 MG TABLET,DEL* Take 40 mg by mouth once ajay * LANCETS Use with [employer] Glucometer * ASPIRIN 81 MG TABLET Take 1 tablet by mouth once d* CRESTOR 40 MG TABLET Take one(1) tablet daily. 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*09/16/2007 Type 2 diabetes mellitus, uncontrolled (HCC) [E*02/16/2008 1 04/21/2014 ESOPHAGEAL REFLUX [K21.9] 03/06/2008 Benign Neoplasm of Colon [D12.6] 02/21/2009 Labyrinthitis [H83.09] 02/05/2010 06/07/2014 Dermatophytosis of nail [B35.1] 06/05/2011 Atrial fibrillation [I48.91] 07/03/2011 Anticoagulated on Coumadin [Z79.01] 07/03/2011 Chronic diarrhea [K52.9] 09/16/2011 06/07/2014 Class 2 severe obesity due to excess calories w*09/16/2011 Stasis dermatitis of both legs [I87.2] 04/05/2013 Foot callus [L84] 10/04/2014 Subsequent non-ST elevation (NSTEMI) myocardial*12/25/2014 Syncope [R55] 02/19/2015 Hyperlipidemia LDL goal <100 [E78.5] 02/19/2015 ASHD (arteriosclerotic heart disease) [I25.10] 02/19/2015 Neurocardiogenic syncope [R55] 03/01/2015 Dysphagia [R13.10] 03/01/2015 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 Balanitis [N48.1] 11/16/2016 Coronary angioplasty status [Z98.61] 11/16/2016 Elevated troponin I level [R79.89] 01/29/2013 More... Family history of cerebrovascular accident (CVA*01/26/2018 History of deep venous thrombosis [Z86.718] 01/26/2018 History of non-ST elevation myocardial infarcti*01/26/2018 Ischemic cardiomyopathy [I25.5] 11/20/2017 Leukocytosis [D72.829] 01/29/2013 More... JESSICA (obstructive sleep apnea) [G47.33] 07/26/2018 RLS (restless legs syndrome) [G25.81] 07/28/2018 Localized swelling, mass and lump, neck [R22.1] 07/28/2018 Acute on chronic systolic congestive heart fail*12/17/2018 Prescriptions ordered this encounter Disp Refills Start End INSULIN LISPRO (U-100) 100 UNIT/ML S* 09/16/2019 Class: Med Update Si units with breakfast, 20 units at lunch, and 20 unit s with supper. CARVEDILOL 3.125 MG TABLET 0 09/16/2019 Class: Med Update Route: ORAL Sig: Take 2 tablets by mouth twice daily. for one week start ing on 06/20/16 then will be taking 6.25 x 2 daily . INSULIN NPH ISOPHANE U-100 HUMAN 100* 60 mL 3 09/16/2019 Class: Med Update Si units subcutaneous once daily be fore breakfast and 32 units at bedtime CHOLECALCIFEROL (VITAMIN D3) 50 MCG * 09/16/2019 Class: Med Update Route: ORAL Sig: Take 1 capsule by mouth once daily. TRAZODONE 50 MG TABLET 180 * 1 09/16/2019 03/14/2020 Route: ORAL Sig: Take 2 tablets by mouth daily at bedtime. TRIAMCINOLONE ACETONIDE 0.1 % TOPICA* 80 g 1 09/16/2019 07/0 05/2019 Route: TOPICAL Sig: Apply 1 application to affected area twice daily for 14 days. Apply sparingly to area for rash/itching. Medications Discontinued During This Encounter insulin lispro (HUMALOG U-100 INSULI* 01/26/2019 09/16/2019 Class: Med Update Si units with breakfast, 17 units at lunch, and 24 unit s with supper. Patient taking differently: 20 units with breakfast, 20 units at lunch, and 20 units with supper. Disc: Adjust Sig - Block E-Cancel carvedilol (COREG) 3.125 mg tablet 0 06/20/2016 09/16/2019 Class: Med Update Route: ORAL Sig: Take 1 tablet by mouth twice daily. for one week starting on 06/20/16 then will be taking 6.25 x 2 daily . Disc: Adjust Sig - Block E-Cancel Cosign accepted by MORGAN VALDEZ III, MD[[id number]] on 06/25/19 17 6:04 PM Melatonin 5 mg cap 08/18/2019 09/16/2019 Class: OTC Route: ORAL Sig: Take 1 capsule by mouth once daily. 2-3 hrs prior to be dtime Patient not taking: Reported on 09/16/2019 Disc: Discontinued by Patient insulin NPH human (HUMULIN N NPH U-1* 60 mL 3 07/12/201809/15 Class: Print RX Si units subcutaneous once daily be fore breakfast and 32 units at bedtime Disc: Adjust Sig - Block E-Cancel ergocalciferol 50,000 unit capsule (* 10 c* 0 03/25/201908/28 Route: ORAL Sig: Take 1 capsule by mouth one time a week. Patient not taking: Reported on 09/16/2019 Disc: Course of therapy completed amLODIPine (NORVASC) 10 mg tablet 09/05/2016 09/16/2019 Class: Historical Med Route: ORAL Sig: Take 0.5 tablets by mouth once daily. Disc: Discontinued by another Health Care Provider rOPINIRole (REQUIP) 0.5 mg tablet 90 t* 1 03/24/2019 09/16/19 20 Route: ORAL Sig: Take 1 tablet by mouth daily at bedtime. Disc: Clinical Decision traZODone (DESYREL) 50 mg tablet 90 t* 1 03/24/2019 0 Route: ORAL Sig: Take 1 tablet by mouth daily at bedtime. Disc: Reason for discontinue is not on file. Disposition: Return if symptoms worsen or fail to improve. Follow-up and Disposition History Recorded Encounter Status:Closed by DENIZ GARSIA CNP on 09/16/19 cnpn on 2019-09-14 CNPN Telephone (FAMPWS) Normal 09-14-2019 [facility] LOVELY DEVI ([id number]) 1945 [place] Date Time Provider Department ([id number]) 09/14[facility]19 [facility] During your visit today, we recorded the following informati on about you: Kaitlin King LPN 09/14/2019 4:10 PM Signed Manda from [facility] Home health calling did visit one time caroli christy delgado for OT patient doing well educated suing bo, famil y will follow through and get one for his use. Deniz Garsia, MSN GUEST SERVICES AGENT.ROLL TESTER 09/15/2019 7:26 AM Signed Noted. Deniz Garsia, MSN GUEST SERVICES AGENT.ROLL TESTER Allergies As of Date: 09/14/2019 Noted Allergy Reaction MORPHINE 02/28/2005 ROCEPHIN (CEFTRIAXONE SODIUM) 06/20/2014 14 - Other: See Com ments Comments: Hot flashes; redness to skin Date Reviewed: 04/28/2019 Reviewed by: [place] ([facility]) JAZZY Carpenter - Fully Assessed Reason for Visit: OT calling one time visit [Other] Prescriptions as of 09/14/2019 Sig: WARFARIN 3 MG TABLET 3 mg every Mon, Wed, Fri; 6 m* CLOPIDOGREL 75 MG TABLET Take 1 tablet by mouth once d* MELATONIN 5 MG CAPSULE Take 1 capsule by mouth once * INSULIN SYRINGE U-100 WITH NE* 1 Each five times daily. LISINOPRIL 20 MG TABLET Take 1 tablet by mouth once d* FUROSEMIDE 40 MG TABLET Take 1 tablet by mouth twice * ERGOCALCIFEROL (VITAMIN D2) 1* Take 1 capsule by mouth one t * TRAZODONE 50 MG TABLET Take 1 tablet by mouth daily * ROPINIROLE 0.5 MG TABLET Take 1 tablet by mouth daily * INSULIN LISPRO (U-100) 100 UN* 18 units with breakfast, 17 u * BIPAP Initiate BiPAP @ 24/18 cm of * FLASH GLUCOSE SENSOR KIT 1 Each four times daily. INSULIN NPH ISOPHANE U-100 HU* 32 units subcutaneous once da * BACK BRACE 1 Device once daily as needed* AMIODARONE 200 MG TABLET Take 1 tablet by mouth once d* SPIRONOLACTONE 25 MG TABLET Take 1 tablet by mouth once d* AMLODIPINE 10 MG TABLET Take 0.5 tablets by mouth onc* CARVEDILOL 3.125 MG TABLET Take 1 tablet by mouth twice * ISOSORBIDE MONONITRATE ER 30 * Take 1 tablet by mouth once d * BLOOD SUGAR DIAGNOSTIC STRIPS Use as instructed to check bl* RANOLAZINE ER 1,000 MG TABLET* Take 1 tablet by mouth twice * FENOFIBRATE NANOCRYSTALLIZED * Take 1 tablet by mouth once d * PANTOPRAZOLE 40 MG TABLET,DEL* Take 40 mg by mouth once ajay * LANCETS Use with [employer] Glucometer * ASPIRIN 81 MG TABLET Take 1 tablet by mouth once d* CRESTOR 40 MG TABLET Take one(1) tablet daily. 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*09/16/2007 Type 2 diabetes mellitus, uncontrolled (HCC) [E*02/16/2008 1 04/21/2014 ESOPHAGEAL REFLUX [K21.9] 03/06/2008 Benign Neoplasm of Colon [D12.6] 02/21/2009 Labyrinthitis [H83.09] 02/05/2010 06/07/2014 Dermatophytosis of nail [B35.1] 06/05/2011 Atrial fibrillation [I48.91] 07/03/2011 Anticoagulated on Coumadin [Z79.01] 07/03/2011 Chronic diarrhea [K52.9] 09/16/2011 06/07/2014 Class 2 severe obesity due to excess calories w*09/16/2011 Stasis dermatitis of both legs [I87.2] 04/05/2013 Foot callus [L84] 10/04/2014 Subsequent non-ST elevation (NSTEMI) myocardial*12/25/2014 Syncope [R55] 02/19/2015 Hyperlipidemia LDL goal <100 [E78.5] 02/19/2015 ASHD (arteriosclerotic heart disease) [I25.10] 02/19/2015 Neurocardiogenic syncope [R55] 03/01/2015 Dysphagia [R13.10] 03/01/2015 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 Balanitis [N48.1] 11/16/2016 Coronary angioplasty status [Z98.61] 11/16/2016 Elevated troponin I level [R79.89] 01/29/2013 More... Family history of cerebrovascular accident (CVA*01/26/2018 History of deep venous thrombosis [Z86.718] 01/26/2018 History of non-ST elevation myocardial infarcti*01/26/2018 Ischemic cardiomyopathy [I25.5] 11/20/2017 Leukocytosis [D72.829] 01/29/2013 More... JESSICA (obstructive sleep apnea) [G47.33] 07/26/2018 RLS (restless legs syndrome) [G25.81] 07/28/2018 Localized swelling, mass and lump, neck [R22.1] 07/28/2018 Acute on chronic systolic congestive heart fail*12/17/2018 Encounter Status:Closed by DENIZ GARSIA CNP on 09/15/19 progress on 2019-08 PROGRESS HNO ID: [id number] Normal 09-12-2019 [id number] Service: ? Author Type: Registered Nurse Type: Progress Notes Filed: 09/12/2019 3:17 PM Note Text: HIGH RISK CHRONIC DISEASE MONITORING Provider Action/FYI: Spk with Pt who noted was Admitted to [facility] 09/04-09/08/19 for Dx : CHF Pt has a scheduled f/u with Cardiology Dr. Perry 10/07/19. Pt has Appt 09/16/19 with Maryellen Garsia CNP Pt has active My Chart and is interested in Head Of Store Operations Contact made with patient: Yes Patient identified by name and . Discussed care with patient Hi my name is Corie Bardales, DRAGAN and I am calling from [facility] on behalf of your PCP, Morgan Valdez III MD Because of the Covid-19 outbreak, I am calling to help make sure you are fe eling well and that you have what you need to manage your well-being, since it is so important to stay home and take social distancing seriously to help protect your health at this time. If you have any health con cerns, we will come up with a plan on how to proceed. SYMPTOMS: I'd like to ask some question about how you are managing you r health. Would that be OK? Yes Do you have any new or worsening symptoms that you'd like to discuss with a provider? No symptoms - Continue outreach/phone call ACTION TAKEN: No Symptoms - Continue phone call MEDICATIONS: Do you have any questions about taking your medication or wh ich medications you should be on? No Do you need any medication refills at this time, including a ny of the medications you might take only when needed? No ACTION TAKEN: No action required SOCIAL: We would like to make sure you have what you need so that yo ur basics needs are met - including your personal safety, food, housin g and medications. Would you like to speak with a social work steam conditioner operator to help give you support for any of these needs? No It can be normal to feel anxious or down during a time like this. Would you like to talk to a mental health professional about how y ou have been feeling? No ACTION TAKEN: No action taken HOG RAISER: Patient MyChart status is: Active account Thank you for taking the time to talk with me today. We want to work with you to ensure that we are keeping your medical conditions we ll-controlled and to keep you healthy and out of the doctor's office or ho spital. Our team would like to stay connected with you to make sure you are feeling well. I am inviting you to complete a short questionnaire that dipti l be sent to you via Can'tWait once a week for the next few weeks to months . [employer] is the best way for us to communicate about your health and wel l-being in between physician visits and telephone calls. This questionn aire is designed to check in on how you are feeling - and if certain symptoms are improving or getting worse. Your treatment team will review your answers and then follow up if we notice any concerning changes in yo ur symptoms. The questionnaire will come to you through your Can'tWait acco unt and will replace the need for us to call you each week. May I sign yo u up for this? Yes Great! I've set you up to receive the weekly questionnaire. In the meantime, if you have concerns in between our calls, please call your PCP's office right away. Thank you. ACTION TAKEN: Signed patient up for weekly Head Of Store Operations questionnaire - Entered next patient outreach date for three months (on a business day) f rom today's date using the Track Pt Outreach. End outreach. At present, these are our recommendations regarding the radha navirus (COVID-19) outbreak: ? Avoid public places as much as possible. ? Avoid close contact (within 6 feet) with others you don't live with, especially if they are sick. ? Stay home if you are sick. ? Wash your hands regularly for at least 20 seconds with soa p and water. ? Wear a cloth mask in public places to help reduce communit y spread. ? Do not go to your Doctor's office unless instructed to do so. For any non-emergency symptoms, call your Doctor's office to get ins tructions on how to manage (we might recommend a telephone or virtual vis it). For emergency symptoms, proceed to Emergency Department as usual but inform them of cough and fever symptoms BRITTANIE if present (or call on the way if possible). End outreach Corie Bardales RN September 12, 2019 3:10 PM cnptoutreach on CNPTOUTREACH Patient Outreach (FAMPWS) Normal 0 09-12-2019 [facility] LOVELY DEVI ([id number]) 1945 [facility] Date Time Provider Department ([id number]) 09/12/19 JEFFY FONTENOT (RN) FAMPWS During your visit today, we recorded the following informati on about you: Corie Bardales RN 09/12/2019 3:17 PM Signed HIGH RISK CHRONIC DISEASE MONITORING Provider Action/FYI: Spk with Pt who noted was Admitted to [facility] 09/04-09/08/19 for Dx : CHF Pt has a scheduled f/u with Cardiology Dr. Perry 10/07/19. Pt has Appt 09/16/19 with Maryellen Garsia CNP Pt has active My Chart and is interested in Head Of Store Operations Contact made with patient: Yes Patient identified by name and . Discussed care with patient Hi my name is Corie Bardales RN and I am calling from the [facility] on behalf of your PCP, Morgan Valdez, II I MD Because of the Covid-19 outbreak, I am calling to help make sure you are f eeling well and that you have what you need to manage your well-being, since it is so important to stay home and take social distancing seriously to help protect your healt h at this time. If you have any health concerns, we will come up with a plan on how to proceed. SYMPTOMS: I'd like to ask some question about how you are managing y our health. Would that be OK? Yes Do you have any new or worsening symptoms that you'd like to discuss with a provider? No symptoms - Continue outreach/phone call ACTION TAKEN: No Symptoms - Continue phone call MEDICATIONS: Do you have any questions ab out taking your medication or which medications you should be on? No Do you need any medication refills at this time, including a ny of the medications you might take only when needed? No ACTION TAKEN: No action required SOCIAL: We would like to make sure y ou have what you need so that your basics needs are met - including your personal safety, fo od, housing and medications. Would you like to speak with a social work steam conditioner operator to help give you support for any of these needs? No It can be normal to feel anxious or down during a time lik e this. Would you like to talk to a mental health professional abo ut how you have been feeling? No ACTION TAKEN: No action taken HOG RAISER: Patient Rodneyhart status is: Active account Thank you for taking the time to talk with me to day. We want to work with you to ensure that we are keeping your medical conditions well-controlled and to keep you healthy and out of the doctor's office or [facility]. Our team would like to stay connected with you to make sure you are feeling well. I am inviting you to complete a short questionnaire th at will be sent to you via Can'tWait once a week for the next few weeks t o months. Can'tWait is the best way for us to communicate ab out your health and well-being in between physician visits and telephone calls. This questionnaire i s designed to check in on how you are feeling - and if certain symptom s are improving or getting worse. Your treatment team will review your answers and then follow up if we notice any concerning changes in your symptoms. The questionnaire will come to you through your Can'tWait account and will re place the need for us to call you each week. May I sign you up for this? Yes Great! I've set you up to receive the weekly questionn shemar. In the meantime, if you have concerns in between our call s, please call your PCP's office right away. Thank you. ACTION TAKEN: Signed patient up for weekly Head Of Store Operations questionnaire - Entered next patient outreach date for three months (on a ) from today's date using the Track Pt Outreach. End outreach. At present, these are our recommendation s regarding the coronavirus (COVID-19) outbreak: ? Avoid public places as much as possible. ? Avoid close contact (within 6 feet) with others you don't live with, especially if they are sick. ? Stay home if you are sick. ? Wash your hands regularly for at least 20 seconds with soa p and water. ? Wear a cloth mask in public places to help reduce communit y spread. ? Do not go to your Doctor's office unless instructed to do so. For any non-emergency symptoms, call your Doctor's office to get instructions on how to manage (we might recommend a telephone or virtual visit). Fo r emergency symptoms, proceed to Emergen cy Department as usual but inform them of cough and fever symptoms BRITTANIE if present (or call on the way if possib le). End outreach Corie Bardales RN September 12, 2019 3:10 PM Allergies As of Date: 09/12/2019 Noted Allergy Reaction MORPHINE 02/28/2005 ROCEPHIN (CEFTRIAXONE SODIUM) 06/20/2014 14 - Other: See Com ments Comments: Hot flashes; redness to skin Date Reviewed: 04/28/2019 Reviewed by: [place] ([facility]) JAZZY Carpenter - Fully Assessed Reason for Visit: Community Monitoring Outreach [Other] Cmt: Outreach 7 Reason For Visit History Recorded Prescriptions as of 09/12/2019 Sig: WARFARIN 3 MG TABLET 3 mg every Mon, Wed, Fri; 6 m* CLOPIDOGREL 75 MG TABLET Take 1 tablet by mouth once d* MELATONIN 5 MG CAPSULE Take 1 capsule by mouth once * INSULIN SYRINGE U-100 WITH NE* 1 Each five times daily. LISINOPRIL 20 MG TABLET Take 1 tablet by mouth once d* FUROSEMIDE 40 MG TABLET Take 1 tablet by mouth twice * ERGOCALCIFEROL (VITAMIN D2) 1* Take 1 capsule by mouth one t * TRAZODONE 50 MG TABLET Take 1 tablet by mouth daily * ROPINIROLE 0.5 MG TABLET Take 1 tablet by mouth daily * INSULIN LISPRO (U-100) 100 UN* 18 units with breakfast, 17 u * BIPAP Initiate BiPAP @ 24/18 cm of * FLASH GLUCOSE SENSOR KIT 1 Each four times daily. INSULIN NPH ISOPHANE U-100 HU* 32 units subcutaneous once da * BACK BRACE 1 Device once daily as needed* AMIODARONE 200 MG TABLET Take 1 tablet by mouth once d* SPIRONOLACTONE 25 MG TABLET Take 1 tablet by mouth once d* AMLODIPINE 10 MG TABLET Take 0.5 tablets by mouth onc* CARVEDILOL 3.125 MG TABLET Take 1 tablet by mouth twice * ISOSORBIDE MONONITRATE ER 30 * Take 1 tablet by mouth once d * BLOOD SUGAR DIAGNOSTIC STRIPS Use as instructed to check bl* RANOLAZINE ER 1,000 MG TABLET* Take 1 tablet by mouth twice * FENOFIBRATE NANOCRYSTALLIZED * Take 1 tablet by mouth once d * PANTOPRAZOLE 40 MG TABLET,DEL* Take 40 mg by mouth once ajay * LANCETS Use with Onetouch Glucometer * ASPIRIN 81 MG TABLET Take 1 tablet by mouth once d* CRESTOR 40 MG TABLET Take one(1) tablet daily. 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*09/16/2007 Type 2 diabetes mellitus, uncontrolled (HCC) [E*02/16/2008 1 04/21/2014 ESOPHAGEAL REFLUX [K21.9] 03/06/2008 Benign Neoplasm of Colon [D12.6] 02/21/2009 Labyrinthitis [H83.09] 02/05/2010 06/07/2014 Dermatophytosis of nail [B35.1] 06/05/2011 Atrial fibrillation [I48.91] 07/03/2011 Anticoagulated on Coumadin [Z79.01] 07/03/2011 Chronic diarrhea [K52.9] 09/16/2011 06/07/2014 Class 2 severe obesity due to excess calories w*09/16/2011 Stasis dermatitis of both legs [I87.2] 04/05/2013 Foot callus [L84] 10/04/2014 Subsequent non-ST elevation (NSTEMI) myocardial*12/25/2014 Syncope [R55] 02/19/2015 Hyperlipidemia LDL goal <100 [E78.5] 02/19/2015 ASHD (arteriosclerotic heart disease) [I25.10] 02/19/2015 Neurocardiogenic syncope [R55] 03/01/2015 Dysphagia [R13.10] 03/01/2015 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 Balanitis [N48.1] 11/16/2016 Coronary angioplasty status [Z98.61] 11/16/2016 Elevated troponin I level [R79.89] 01/29/2013 More... Family history of cerebrovascular accident (CVA*01/26/2018 History of deep venous thrombosis [Z86.718] 01/26/2018 History of non-ST elevation myocardial infarcti*01/26/2018 Ischemic cardiomyopathy [I25.5] 11/20/2017 Leukocytosis [D72.829] 01/29/2013 More... JESSICA (obstructive sleep apnea) [G47.33] 07/26/2018 RLS (restless legs syndrome) [G25.81] 07/28/2018 Localized swelling, mass and lump, neck [R22.1] 07/28/2018 Acute on chronic systolic congestive heart fail*12/17/2018 Encounter Status:[facility]) [facility] 09-09-2019 [facility] LOVELY DEVI ([id number]) 1945 [facility] Date Time Provider Department ([id number]) 09/09/19 [facility] During your visit today, we recorded the following informati on about you: Tasha Chan RN 09/09/2019 1:04 PM [facility]: nursing will see patient 2 x's week for 9 weeks, for wound care, medication education, and dis ease process teaching. Reports his discharge instructions from hospital, have 2 meds on list, patient reports he hasn't taken in a long time: colestid 1 g bid, and tricor 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 Morgan Valdez III MD 09/09/2019 5:58 PM Signed Noted Morgan Valdez III, , FAAFP Allergies As of Date: 09/09/2019 Noted Allergy Reaction MORPHINE 02/28/2005 ROCEPHIN (CEFTRIAXONE SODIUM) 06/20/2014 14 - Other: See Com ments Comments: Hot flashes; redness to skin Date Reviewed: 04/28/2019 Reviewed by: Lin[place] ([facility]) JAZZY Carpenter - Fully Assessed Reason for Visit: [facility] POC [Other] Prescriptions as of 09/09/2019 Sig: WARFARIN 3 MG TABLET 3 mg every Mon, Wed, Fri; 6 m* CLOPIDOGREL 75 MG TABLET Take 1 tablet by mouth once d* MELATONIN 5 MG CAPSULE Take 1 capsule by mouth once * INSULIN SYRINGE U-100 WITH NE* 1 Each five times daily. LISINOPRIL 20 MG TABLET Take 1 tablet by mouth once d* FUROSEMIDE 40 MG TABLET Take 1 tablet by mouth twice * ERGOCALCIFEROL (VITAMIN D2) 1* Take 1 capsule by mouth one t * TRAZODONE 50 MG TABLET Take 1 tablet by mouth daily * ROPINIROLE 0.5 MG TABLET Take 1 tablet by mouth daily * INSULIN LISPRO (U-100) 100 UN* 18 units with breakfast, 17 u * BIPAP Initiate BiPAP @ 24/18 cm of * FLASH GLUCOSE SENSOR KIT 1 Each four times daily. INSULIN NPH ISOPHANE U-100 HU* 32 units subcutaneous once da * BACK BRACE 1 Device once daily as needed* AMIODARONE 200 MG TABLET Take 1 tablet by mouth once d* SPIRONOLACTONE 25 MG TABLET Take 1 tablet by mouth once d* AMLODIPINE 10 MG TABLET Take 0.5 tablets by mouth onc* CARVEDILOL 3.125 MG TABLET Take 1 tablet by mouth twice * ISOSORBIDE MONONITRATE ER 30 * Take 1 tablet by mouth once d * BLOOD SUGAR DIAGNOSTIC STRIPS Use as instructed to check bl* RANOLAZINE ER 1,000 MG TABLET* Take 1 tablet by mouth twice * FENOFIBRATE NANOCRYSTALLIZED * Take 1 tablet by mouth once d * PANTOPRAZOLE 40 MG TABLET,DEL* Take 40 mg by mouth once ajay * LANCETS Use with [employer] Glucometer * ASPIRIN 81 MG TABLET Take 1 tablet by mouth once d* CRESTOR 40 MG TABLET Take one(1) tablet daily. 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/16/2007 Type 2 diabetes mellitus, uncontrolled (HCC) [E*02/16/2008 1 04/21/2014 ESOPHAGEAL REFLUX [K21.9] 03/06/2008 Benign Neoplasm of Colon [D12.6] 02/21/2009 Labyrinthitis [H83.09] 02/05/2010 06/07/2014 Dermatophytosis of nail [B35.1] 06/05/2011 Atrial fibrillation [I48.91] 07/03/2011 Anticoagulated on Coumadin [Z79.01] 07/03/2011 Chronic diarrhea [K52.9] 09/16/2011 06/07/2014 Class 2 severe obesity due to excess calories w*09/16/2011 Stasis dermatitis of both legs [I87.2] 04/05/2013 Foot callus [L84] 10/04/2014 Subsequent non-ST elevation (NSTEMI) myocardial*12/25/2014 Syncope [R55] 02/19/2015 Hyperlipidemia LDL goal <100 [E78.5] 02/19/2015 ASHD (arteriosclerotic heart disease) [I25.10] 02/19/2015 Neurocardiogenic syncope [R55] 03/01/2015 Dysphagia [R13.10] 03/01/2015 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 Balanitis [N48.1] 11/16/2016 Coronary angioplasty status [Z98.61] 11/16/2016 Elevated troponin I level [R79.89] 01/29/2013 More... Family history of cerebrovascular accident (CVA*01/26/2018 History of deep venous thrombosis [Z86.718] 01/26/2018 History of non-ST elevation myocardial infarcti*01/26/2018 Ischemic cardiomyopathy [I25.5] 11/20/2017 Leukocytosis [D72.829] 01/29/2013 More... JESSICA (obstructive sleep apnea) [G47.33] 07/26/2018 RLS (restless legs syndrome) [G25.81] 07/28/2018 Localized swelling, mass and lump, neck [R22.1] 07/28/2018 Acute on chronic systolic congestive heart fail*12/17/2018 Encounter Status:Closed by MORGAN VALDEZ III, MD on 09/09/19 [place] [facility] 2019[facility]) Normal 09-08-2019 [facility] LOVELY DEVI ([id number]) 1945 [place] [facility] Date Time Provider Department ([id number]) 09/08/19 MORGAN VALDEZ III During your visit today, we recorded the following informati on about you: Cindi Eastman LPN 09/08/2019 2:43 PM Signed Melany with [facility] calling to let you know cammie rodriguez being d/c from [facility] today and needs to be followed with nursing, OT and PT. Asking i f you will follow and sign. Please advise Melany. Cindi Valdez III MD 09/08/2019 2:45 PM Signed yes--I will follow FEDERICO Alatorre MD, LPN 09/08/2019 4:42 PM Signed Melany advised of Dr Valdez's verbal orders. Sherill A Hamb el [employer]CH[employer] APPRENTICE Allergies As of Date: 09/08/2019 Noted Allergy Reaction MORPHINE 02/28/2005 ROCEPHIN (CEFTRIAXONE SODIUM) 06/20/2014 14 - Other: See Com ments Comments: Hot flashes; redness to skin Date Reviewed: 04/28/2019 Reviewed by: Lin[place] ([facility]) JAZZY Carpenter - Fully Assessed Reason for Visit: [facility] orders [Other] Prescriptions as of 09/08/2019 Sig: WARFARIN 3 MG TABLET 3 mg every Mon, Wed, Fri; 6 m* CLOPIDOGREL 75 MG TABLET Take 1 tablet by mouth once d* MELATONIN 5 MG CAPSULE Take 1 capsule by mouth once * INSULIN SYRINGE U-100 WITH NE* 1 Each five times daily. LISINOPRIL 20 MG TABLET Take 1 tablet by mouth once d* FUROSEMIDE 40 MG TABLET Take 1 tablet by mouth twice * ERGOCALCIFEROL (VITAMIN D2) 1* Take 1 capsule by mouth one t * TRAZODONE 50 MG TABLET Take 1 tablet by mouth daily * ROPINIROLE 0.5 MG TABLET Take 1 tablet by mouth daily * INSULIN LISPRO (U-100) 100 UN* 18 units with breakfast, 17 u * BIPAP Initiate BiPAP @ 24/18 cm of * FLASH GLUCOSE SENSOR KIT 1 Each four times daily. INSULIN NPH ISOPHANE U-100 HU* 32 units subcutaneous once da * BACK BRACE 1 Device once daily as needed* AMIODARONE 200 MG TABLET Take 1 tablet by mouth once d* SPIRONOLACTONE 25 MG TABLET Take 1 tablet by mouth once d* AMLODIPINE 10 MG TABLET Take 0.5 tablets by mouth onc* CARVEDILOL 3.125 MG TABLET Take 1 tablet by mouth twice * ISOSORBIDE MONONITRATE ER 30 * Take 1 tablet by mouth once d * BLOOD SUGAR DIAGNOSTIC STRIPS Use as instructed to check bl* RANOLAZINE ER 1,000 MG TABLET* Take 1 tablet by mouth twice * FENOFIBRATE NANOCRYSTALLIZED * Take 1 tablet by mouth once d * PANTOPRAZOLE 40 MG TABLET,DEL* Take 40 mg by mouth once ajay * LANCETS Use with Onetouch Glucometer * ASPIRIN 81 MG TABLET Take 1 tablet by mouth once d* CRESTOR 40 MG TABLET Take one(1) tablet daily. 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*09/16/2007 Type 2 diabetes mellitus, uncontrolled (HCC) [E*02/16/2008 1 04/21/2014 ESOPHAGEAL REFLUX [K21.9] 03/06/2008 Benign Neoplasm of Colon [D12.6] 02/21/2009 Labyrinthitis [H83.09] 02/05/2010 06/07/2014 Dermatophytosis of nail [B35.1] 06/05/2011 Atrial fibrillation [I48.91] 07/03/2011 Anticoagulated on Coumadin [Z79.01] 07/03/2011 Chronic diarrhea [K52.9] 09/16/2011 06/07/2014 Class 2 severe obesity due to excess calories w*09/16/2011 Stasis dermatitis of both legs [I87.2] 04/05/2013 Foot callus [L84] 10/04/2014 Subsequent non-ST elevation (NSTEMI) myocardial*12/25/2014 Syncope [R55] 02/19/2015 Hyperlipidemia LDL goal <100 [E78.5] 02/19/2015 ASHD (arteriosclerotic heart disease) [I25.10] 02/19/2015 Neurocardiogenic syncope [R55] 03/01/2015 Dysphagia [R13.10] 03/01/2015 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 Balanitis [N48.1] 11/16/2016 Coronary angioplasty status [Z98.61] 11/16/2016 Elevated troponin I level [R79.89] 01/29/2013 More... Family history of cerebrovascular accident (CVA*01/26/2018 History of deep venous thrombosis [Z86.718] 01/26/2018 History of non-ST elevation myocardial infarcti*01/26/2018 Ischemic cardiomyopathy [I25.5] 11/20/2017 Leukocytosis [D72.829] 01/29/2013 More... JESSICA (obstructive sleep apnea) [G47.33] 07/26/2018 RLS (restless legs syndrome) [G25.81] 07/28/2018 Localized swelling, mass and lump, neck [R22.1] 07/28/2018 Acute on chronic systolic congestive heart fail*12/17/2018 Encounter Status:Closed by EUFEMIA MAURICE PIANO MECHANIC APPRENTICE on 09/08/19 cnpn on 2019-09-07 [facility] Normal 09-07-2019 [facility] LOVELY DEVI ([id number]) 1945 [place] Date Time Provider Department ([id number]) 09/07/19 BLOSSOM (PHARMACIST)BRIJESH During your visit today, we recorded the following informati on about you: ANSHUL SEBASTIAN 09/07/2019 3:41 PM Signed Patient was due to test INR today will continue to monitor f or results. Per distance health encounters this week, pt has had increas ing SOB, and dyspnea. He was advised to seek medical attention and a note said he was going to go to [facility]. Dipti marks monitor for an update on the patient and updated INR. Joleen Cerrato, PharmD ANSHUL SEBASTIAN 09/14/2019 9:32 AM Signed [facility] Referring provider: No ref. provider found Lovely Dvei is a 73 year old year old male patient being evaluated today for anticoagulation Telemanagement visit. Patient is currently on the following anticoagulant Warfarin Labs PT INR (no units) Date Value 11/26/2018 Test sent to [facility]. 10/16/2017 1.8 01/16/2017 Test sent to [facility]. INR (POCT) (no units) Date Value 02/21/2019 2.9 01/24/2019 2.9 01/17/2019 3.2 INR Home CoaguChek (no units) Date Value 09/14/2019 2.7 08/24/2019 2.5 08/10/2019 2.5 Hemoglobin (g/dL) Date Value 01/14/2019 12.0 Hematocrit (%) Date Value 01/14/2019 37.9 Platelet Count (k/uL) Date Value 01/14/2019 154 Creatinine (mg/dL) Date Value 04/21/2019 1.35 01/14/2019 1.24 12/17/2018 1.34 Bilirubin, Total (mg/dL) Date Value 04/21/2019 0.6 ALT (U/L) Date Value 04/21/2019 33 AST (U/L) Date Value 04/21/2019 36 CrCl cannot be calculated (Unknown ideal weight.). ALLERGIES Allergen Reactions - Morphine - Rocephin [Ceftriaxo* Other: See Comments Hot flashes; redness to skin Indication for Warfarin: Paroxysmal atrial fibrillation (hcc ) Anticoagulated on coumadin Goal INR Range: 2-3 Assessment: ? INR result of 2.7 is therapeutic ? Pt was recently discharged from [facility]. According to Epic note - he was discharged with 2 meds he had not been taking - Colestid and tricor 145 mg daily Plan: ? Advised patient to continue current weekly dose ? LVMX for pt to please give us an updat e on post-discharge meds/changes since an update has not been scanned in yet. ? Will need to check his INR with being on tricor if he is t aking this. ? Next home INR check scheduled on 09/28/2019 JOLEEN CERRATO, PHARMACIST Clinical Pharmacist, Pharmacy [facility]tico[facility] Pager: [phone] Description Patient has 3 mg tablets of warfarin. Patient takes in the m orning. . Chencho Helms ([place]) 09/14/2019 11:06 AM Signed Patient returned call and is requesting pharmaci st to contact patient after 2 pm today as he is currently not home. Patient can be reached at [phone]. Chencho Helms, Physician (order packer) [facility] JOLEEN CERRATO, PHARMACIST 09/14/2019 5:28 PM Signed Called pt back at number below. He has been on abx for cellulitis but has comple devin that course today. He was taking cephalexin. He said is not taking colestid or tricor at this time. No missed doses, bleeding /bruising, his leg would is slowly healing. Patient advised to continue his current dose and retest on . Joleen Cerrato, PharmD Allergies As of Date: 09/07/2019 Noted Allergy Reaction MORPHINE 02/28/2005 ROCEPHIN (CEFTRIAXONE SODIUM) 06/20/2014 14 - Other: See Com ments Comments: Hot flashes; redness to skin Date Reviewed: 04/28/2019 Reviewed by: [place] ([facility]) JAZZY Carpenter - Fully Assessed Reason for Visit: Anticoagulation Telephone Fu [148] Cmt: Home INR expected Primary Visit Diagnosis:Anticoagulated on Coumadin [Z79.01] Other Visit Diagnosis:Paroxysmal atrial fibrillation (HCC) [ I48.0] Prescriptions as of 09/07/2019 Sig: WARFARIN 3 MG TABLET 3 mg every Mon, Wed, Fri; 6 m* CLOPIDOGREL 75 MG TABLET Take 1 tablet by mouth once d* MELATONIN 5 MG CAPSULE Take 1 capsule by mouth once * INSULIN SYRINGE U-100 WITH NE* 1 Each five times daily. LISINOPRIL 20 MG TABLET Take 1 tablet by mouth once d* FUROSEMIDE 40 MG TABLET Take 1 tablet by mouth twice * ERGOCALCIFEROL (VITAMIN D2) 1* Take 1 capsule by mouth one t * TRAZODONE 50 MG TABLET Take 1 tablet by mouth daily * ROPINIROLE 0.5 MG TABLET Take 1 tablet by mouth daily * INSULIN LISPRO (U-100) 100 UN* 18 units with breakfast, 17 u * BIPAP Initiate BiPAP @ 24/18 cm of * FLASH GLUCOSE SENSOR KIT 1 Each four times daily. INSULIN NPH ISOPHANE U-100 HU* 32 units subcutaneous once da * BACK BRACE 1 Device once daily as needed* AMIODARONE 200 MG TABLET Take 1 tablet by mouth once d* SPIRONOLACTONE 25 MG TABLET Take 1 tablet by mouth once d* AMLODIPINE 10 MG TABLET Take 0.5 tablets by mouth onc* CARVEDILOL 3.125 MG TABLET Take 1 tablet by mouth twice * ISOSORBIDE MONONITRATE ER 30 * Take 1 tablet by mouth once d * BLOOD SUGAR DIAGNOSTIC STRIPS Use as instructed to check bl* RANOLAZINE ER 1,000 MG TABLET* Take 1 tablet by mouth twice * FENOFIBRATE NANOCRYSTALLIZED * Take 1 tablet by mouth once d * PANTOPRAZOLE 40 MG TABLET,DEL* Take 40 mg by mouth once ajay * LANCETS Use with Onetouch Glucometer * ASPIRIN 81 MG TABLET Take 1 tablet by mouth once d* CRESTOR 40 MG TABLET Take one(1) tablet daily. 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*09/16/2007 Type 2 diabetes mellitus, uncontrolled (HCC) [E*02/16/2008 1 04/21/2014 ESOPHAGEAL REFLUX [K21.9] 03/06/2008 Benign Neoplasm of Colon [D12.6] 02/21/2009 Labyrinthitis [H83.09] 02/05/2010 06/07/2014 Dermatophytosis of nail [B35.1] 06/05/2011 Atrial fibrillation [I48.91] 07/03/2011 Anticoagulated on Coumadin [Z79.01] 07/03/2011 Chronic diarrhea [K52.9] 09/16/2011 06/07/2014 Class 2 severe obesity due to excess calories w*09/16/2011 Stasis dermatitis of both legs [I87.2] 04/05/2013 Foot callus [L84] 10/04/2014 Subsequent non-ST elevation (NSTEMI) myocardial*12/25/2014 Syncope [R55] 02/19/2015 Hyperlipidemia LDL goal <100 [E78.5] 02/19/2015 ASHD (arteriosclerotic heart disease) [I25.10] 02/19/2015 Neurocardiogenic syncope [R55] 03/01/2015 Dysphagia [R13.10] 03/01/2015 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 Balanitis [N48.1] 11/16/2016 Coronary angioplasty status [Z98.61] 11/16/2016 Elevated troponin I level [R79.89] 01/29/2013 More... Family history of cerebrovascular accident (CVA*01/26/2018 History of deep venous thrombosis [Z86.718] 01/26/2018 History of non-ST elevation myocardial infarcti*01/26/2018 Ischemic cardiomyopathy [I25.5] 11/20/2017 Leukocytosis [D72.829] 01/29/2013 More... JESSICA (obstructive sleep apnea) [G47.33] 07/26/2018 RLS (restless legs syndrome) [G25.81] 07/28/2018 Localized swelling, mass and lump, neck [R22.1] 07/28/2018 Acute on chronic systolic congestive heart fail*12/17/2018 Encounter Status:Closed by BLOSSOM (PHARMACIST)JOLEEN on progress on 2019-08 PROGRESS HNO ID: [id number] Normal 09-05-2019 [facility] Author: Staci Almazan MD [place] ([id number]) Service: ? Author Type: Physician Type: Progress Notes Filed: 09/05/2019 3:49 PM Note Text: Virtualist Community Monitoring Note: Adult seen for Monitoring Track: High Risk Chronic Disease Management Contacted by phone, [employer], [employer], [employer], Zoom, [employer], [employer], other: phone I spoke with the patient and his Ila who confirmed the history History of present illness: 73 year old male complaining of SOB, with any activity and e sheri at rest, has had for about 1 1/2 weeks but is worse today, hot weathe r and humidity make the SOB worse, has swelling of lower extremities, also had chest pain that lasted about 30 seconds, no recent URI symptoms (such a s cough or fever) recent hospitalization in July per patient, I Past medical history, past surgical history, family history and social history reviewed and updated as indicated in EMR. PMH (I reviewed epic, from [facility]) includes NSTEMI, ASHD, isch emic cardiomyopathy, JESSICA, CHF REVIEW OF SYSTEMS: Review of Systems see hpi VITAL SIGNS: (if available) There were no vitals taken for this visit. Physical Exam (if video visit was performed) Physical Exam on phone patient sounded SOB and had to rest after a few wor ds to catch his breath, unable to speak in full sentences Assessment/Plan: Dyspnea, history of CHF, history of ischemi c cardiomyopathy, history of NSTEMI Plan I spoke with the patient and his and recommended they c all an ambulance and go to the ED, They said no. The said she would take him to [facility]. I called the [facility] ED [phone] and spoke to charge nurse Cristina and gave report. With his PMH and risk factors, this SOB is likely cardiac an d will need treatment and needs to go to ED, preferably by ambulance Disposition: Patient instructed to go to the ED A total of 10 minutes was spent providing medical care using telemedicine. Remove COVID19 association SIGNATURE: Staci Almazan MD PATIENT NAME: Lovely Agudelo wilfredo DATE: September 05, 2019 PAGER/CONTACT: [phone] PROGRESS HNO ID: [id number] Normal 09-05-2019 [facility] Author: Jeffy Fontenot (Dragan) [place] ([id number]) Service: ? Author Type: Registered Nurse Type: Progress Notes Filed: 09/05/2019 2:06 PM Note Text: HIGH RISK CHRONIC DISEASE MONITORING Provider Action/FYI: Routed to RX CLINICAL TRIAGE Pool: Pt is aware a provider wi ll contact him, he is in agreement with Plan. Pt reports Sob at rest and with activity, worse with Humidit y, occasional cough, denies congestion, denies fever, Temp range 96-97.0, chronic occasional episode of diarrhea. Pt is having moderate amount of swelling in Bilateral Lower extremities. Hx CHF Contact made with patient: Yes Patient identified by name and . Discussed care with patient Hi my name is Corie Bardales RN and I am calling from [facility] on behalf of your PCP, Morgan Valdez III MD Because of the Covid-19 outbreak, I am calling to help make sure you are fe eling well and that you have what you need to manage your well-being, since it is so important to stay home and take social distancing seriously to help protect your health at this time. If you have any health con cerns, we will come up with a plan on how to proceed. SYMPTOMS: I'd like to ask some question about how you are managing you r health. Would that be OK? Yes Do you have any new or worsening symptoms that you'd like to discuss with a provider? Yes - Because you've indicated you have symptoms, I'd like t o get some basic information I can share with a provider so they can as sist you. ? What is the main symptom you have noticed? ? Sob, worse with Humidity, occasional cough, denies congest ion, or fever, occasional episode of diarrhea ? Would you consider your symptoms severe enough to require immediate care? ? No ? Is it a new symptom? ? No ? How long have you had it? ? Over last couple weeks ? Is it getting better, worse or staying the same? ? Staying the same ACTION TAKEN: SYMPTOMS PRESENT NOT SEVERE - action required - patient sheron cated 'No' to severe symptoms present - routed to RX CLINICAL TRIAGE pool #[id number] and noted symptoms in the FYI box - Informed patient that you re commend further assessment from a provider to review symptoms. End O [facility] / Phone Call Outreach Ended Corie Bardales RN September 05, 2019 1:54 PM PROGRESS HNO ID: [id number] Normal 09-05-2019 [facility] Author: Faye Lara (Pharmacist) [place] ([id number]) Service: ? Author Type: Pharmacist Type: Progress Notes Filed: 09/05/2019 2:23 PM Note Text: Called patient to clarify. He reports significant SOB, barel y can make it to the bathroom. This is new for him. Will page elijahist stella fraser and route high priority to address today. Faye Lara, PharmD, BCACP Primary Care Pharmacist [facility] Outreach (FAMPWS) Normal 0 09-05-2019 [facility] LOVELY DEVI ([id number]) 1945 [facility] Date Time Provider Department ([id number]) 09/05/19 JEFYF FONTENOT (RN) FAMPWS During your visit today, we recorded the following informati on about you: FAYE LARA, PHARMACIST 09/05/2019 2:23 PM Signed Called patient to clarify. He reports significant SOB, barely can make it to the bathroom. This is new fo r him. Will page virtualist provider and route high priority to address today. Faye Lara, PharmD, BCACP Primary Care Pharmacist Corie Bardales, DRAGAN 09/05/2019 2:06 PM Signed HIGH RISK CHRONIC DISEASE MONITORING Provider Action/FYI: Routed to RX CLINICAL TRIAGE Pool: Pt is aware a provider will contact him, he is in agreement with Plan. Pt reports Sob at rest and with activity, worse with Humidit y, occasional cough, denies congestion, denies fever, Temp range 96-97.0, chronic occasional episode of diarrhea. Pt is having moderate amount of swelling in Bilateral Lower extremities. Hx CHF Contact made with patient: Yes Patient identified by name and . Discussed care with patient Hi my name is Corie Bardales RN and I am calling from the [facility] on behalf of your PCP, Morgan Valdez, II I Because of the Covid-19 outbreak, I am calling to help make sure you are f eeling well and that you have what you need to manage your well-being, since it is so important to stay home and take social distancing seriously to help protect your healt h at this time. If you have any health concerns, we will come up with a plan on how to proceed. SYMPTOMS: I'd like to ask some question about how you are managing y our health. Would that be OK? Yes Do you have any new or worsening symptoms that you'd like to discuss with a provider? Yes - Because you've indicated you have symptoms, I'd like to get some basic information I can share with a provider so they can assist y ou. ? What is the main symptom you have noticed? ? Sob, worse with Humidity, occasional cough, denies congest ion, or fever, occasional episode of diarrhea ? Would you consider your symptoms severe enough to requir e immediate care? ? No ? Is it a new symptom? ? No ? How long have you had it? ? Over last couple weeks ? Is it getting better, worse or staying the same? ? Staying the same ACTION TAKEN: SYMPTOMS PRESENT NOT SEVERE - action required - patient sheron cated 'No' to severe symptoms present - routed to RX CLINICAL TRIAGE pool #[id number] and noted symptoms in the FYI box - Informed patient that you recommend further assessment from a provider to review symptoms. End Outreach / Phone Call Outreach Ended Corie Bardales RN September 05, 2019 1:54 PM Allergies As of Date: 09/05/2019 Noted Allergy Reaction MORPHINE 02/28/2005 ROCEPHIN (CEFTRIAXONE SODIUM) 06/20/2014 14 - Other: See Com ments Comments: Hot flashes; redness to skin Date Reviewed: 04/28/2019 Reviewed by: [place] ([facility]) JAZZY Carpenter - Fully Assessed Reason for Visit: Community Monitoring Outreach [Other] Cmt: Outreach 6 Reason For Visit History Recorded Prescriptions as of 09/05/2019 Sig: WARFARIN 3 MG TABLET 3 mg every Mon, Wed, Fri; 6 m* CLOPIDOGREL 75 MG TABLET Take 1 tablet by mouth once d* MELATONIN 5 MG CAPSULE Take 1 capsule by mouth once * INSULIN SYRINGE U-100 WITH NE* 1 Each five times daily. LISINOPRIL 20 MG TABLET Take 1 tablet by mouth once d* FUROSEMIDE 40 MG TABLET Take 1 tablet by mouth twice * ERGOCALCIFEROL (VITAMIN D2) 1* Take 1 capsule by mouth one t * TRAZODONE 50 MG TABLET Take 1 tablet by mouth daily * ROPINIROLE 0.5 MG TABLET Take 1 tablet by mouth daily * INSULIN LISPRO (U-100) 100 UN* 18 units with breakfast, 17 u * BIPAP Initiate BiPAP @ 24/18 cm of * FLASH GLUCOSE SENSOR KIT 1 Each four times daily. INSULIN NPH ISOPHANE U-100 HU* 32 units subcutaneous once da * BACK BRACE 1 Device once daily as needed* AMIODARONE 200 MG TABLET Take 1 tablet by mouth once d* SPIRONOLACTONE 25 MG TABLET Take 1 tablet by mouth once d* AMLODIPINE 10 MG TABLET Take 0.5 tablets by mouth onc* CARVEDILOL 3.125 MG TABLET Take 1 tablet by mouth twice * ISOSORBIDE MONONITRATE ER 30 * Take 1 tablet by mouth once d * BLOOD SUGAR DIAGNOSTIC STRIPS Use as instructed to check bl* RANOLAZINE ER 1,000 MG TABLET* Take 1 tablet by mouth twice * FENOFIBRATE NANOCRYSTALLIZED * Take 1 tablet by mouth once d * PANTOPRAZOLE 40 MG TABLET,DEL* Take 40 mg by mouth once ajay * LANCETS Use with [employer] Glucometer * ASPIRIN 81 MG TABLET Take 1 tablet by mouth once d* CRESTOR 40 MG TABLET Take one(1) tablet daily. 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/2007 Type 2 diabetes mellitus, uncontrolled (HCC) [E*02/16/2008 1 04/21/2014 ESOPHAGEAL REFLUX [K21.9] 03/06/2008 Benign Neoplasm of Colon [D12.6] 02/21/2009 Labyrinthitis [H83.09] 02/05/2010 06/07/2014 Dermatophytosis of nail [B35.1] 06/05/2011 Atrial fibrillation [I48.91] 07/03/2011 Anticoagulated on Coumadin [Z79.01] 07/03/2011 Chronic diarrhea [K52.9] 09/16/2011 06/07/2014 Class 2 severe obesity due to excess calories w*09/16/2011 Stasis dermatitis of both legs [I87.2] 04/05/2013 Foot callus [L84] 10/04/2014 Subsequent non-ST elevation (NSTEMI) myocardial*12/25/2014 Syncope [R55] 02/19/2015 Hyperlipidemia LDL goal <100 [E78.5] 02/19/2015 ASHD (arteriosclerotic heart disease) [I25.10] 02/19/2015 Neurocardiogenic syncope [R55] 03/01/2015 Dysphagia [R13.10] 03/01/2015 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 Balanitis [N48.1] 11/16/2016 Coronary angioplasty status [Z98.61] 11/16/2016 Elevated troponin I level [R79.89] 01/29/2013 More... Family history of cerebrovascular accident (CVA*01/26/2018 History of deep venous thrombosis [Z86.718] 01/26/2018 History of non-ST elevation myocardial infarcti*01/26/2018 Ischemic cardiomyopathy [I25.5] 11/20/2017 Leukocytosis [D72.829] 01/29/2013 More... JESSICA (obstructive sleep apnea) [G47.33] 07/26/2018 RLS (restless legs syndrome) [G25.81] 07/28/2018 Localized swelling, mass and lump, neck [R22.1] 07/28/2018 Acute on chronic systolic congestive heart fail*12/17/2018 Encounter Status:Closed by CORIE BARDALES on 09/05/19 obsolete on 2019-08 OBSOLETE Refill (PHAMTE) Normal 08-31-2019 [facility] LOVELY DEVI ([id number]) 1945 [place] Date Time Provider Department ([id number]) 08/31/19 MORGAN VALDEZ III During your visit today, we recorded the following informati on about you: Ashley Ellis Ma 08/31/2019 1:15 PM Signed Patient has been identified by name and date of : Yes Pending Prescriptions Disp Refills WARFARIN 3 MG TABLET Si mg every Mon, Wed, Fri; 6 mg all other days ZBIGNIEW: No RX INSTRUCTIONS: Patient aware RX will be sent to pharmacy. No need to notify patient. Ashley Ellis Ma Allergies As of Date: 08/31/2019 Noted Allergy Reaction MORPHINE 02/28/2005 ROCEPHIN (CEFTRIAXONE SODIUM) 06/20/2014 14 - Other: See Com ments Comments: Hot flashes; redness to skin Date Reviewed: 04/28/2019 Reviewed by: [place] ([facility]) JAZZY Carpenter - Fully Assessed Reason for Visit: Refill Request [94] Visit Diagnosis:Chronic atrial fibrillation (HCC) [I48.20] Order(s):warfarin (COUMADIN) 3 mg tablet3 mg every Mon, Wed, Fri; 6 mg all other daysDisp: 150 tabletRfl: 3 Prescriptions as of 08/31/2019 Sig: WARFARIN 3 MG TABLET 3 mg every Mon, Wed, Fri; 6 m* CLOPIDOGREL 75 MG TABLET Take 1 tablet by mouth once d* MELATONIN 5 MG CAPSULE Take 1 capsule by mouth once * INSULIN SYRINGE U-100 WITH NE* 1 Each five times daily. LISINOPRIL 20 MG TABLET Take 1 tablet by mouth once d* FUROSEMIDE 40 MG TABLET Take 1 tablet by mouth twice * ERGOCALCIFEROL (VITAMIN D2) 1* Take 1 capsule by mouth one t * TRAZODONE 50 MG TABLET Take 1 tablet by mouth daily * ROPINIROLE 0.5 MG TABLET Take 1 tablet by mouth daily * INSULIN LISPRO (U-100) 100 UN* 18 units with breakfast, 17 u * BIPAP Initiate BiPAP @ 24/18 cm of * FLASH GLUCOSE SENSOR KIT 1 Each four times daily. INSULIN NPH ISOPHANE U-100 HU* 32 units subcutaneous once da * BACK BRACE 1 Device once daily as needed* AMIODARONE 200 MG TABLET Take 1 tablet by mouth once d* SPIRONOLACTONE 25 MG TABLET Take 1 tablet by mouth once d* AMLODIPINE 10 MG TABLET Take 0.5 tablets by mouth onc* CARVEDILOL 3.125 MG TABLET Take 1 tablet by mouth twice * ISOSORBIDE MONONITRATE ER 30 * Take 1 tablet by mouth once d * BLOOD SUGAR DIAGNOSTIC STRIPS Use as instructed to check bl* RANOLAZINE ER 1,000 MG TABLET* Take 1 tablet by mouth twice * FENOFIBRATE NANOCRYSTALLIZED * Take 1 tablet by mouth once d * PANTOPRAZOLE 40 MG TABLET,DEL* Take 40 mg by mouth once ajay * LANCETS Use with Onetouch Glucometer * ASPIRIN 81 MG TABLET Take 1 tablet by mouth once d* CRESTOR 40 MG TABLET Take one(1) tablet daily. 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*09/16/2007 Type 2 diabetes mellitus, uncontrolled (HCC) [E*02/16/2008 1 04/21/2014 ESOPHAGEAL REFLUX [K21.9] 03/06/2008 Benign Neoplasm of Colon [D12.6] 02/21/2009 Labyrinthitis [H83.09] 02/05/2010 06/07/2014 Dermatophytosis of nail [B35.1] 06/05/2011 Atrial fibrillation [I48.91] 07/03/2011 Anticoagulated on Coumadin [Z79.01] 07/03/2011 Chronic diarrhea [K52.9] 09/16/2011 06/07/2014 Class 2 severe obesity due to excess calories w*09/16/2011 Stasis dermatitis of both legs [I87.2] 04/05/2013 Foot callus [L84] 10/04/2014 Subsequent non-ST elevation (NSTEMI) myocardial*12/25/2014 Syncope [R55] 02/19/2015 Hyperlipidemia LDL goal <100 [E78.5] 02/19/2015 ASHD (arteriosclerotic heart disease) [I25.10] 02/19/2015 Neurocardiogenic syncope [R55] 03/01/2015 Dysphagia [R13.10] 03/01/2015 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 Balanitis [N48.1] 11/16/2016 Coronary angioplasty status [Z98.61] 11/16/2016 Elevated troponin I level [R79.89] 01/29/2013 More... Family history of cerebrovascular accident (CVA*01/26/2018 History of deep venous thrombosis [Z86.718] 01/26/2018 History of non-ST elevation myocardial infarcti*01/26/2018 Ischemic cardiomyopathy [I25.5] 11/20/2017 Leukocytosis [D72.829] 01/29/2013 More... JESSICA (obstructive sleep apnea) [G47.33] 07/26/2018 RLS (restless legs syndrome) [G25.81] 07/28/2018 Localized swelling, mass and lump, neck [R22.1] 07/28/2018 Acute on chronic systolic congestive heart fail*12/17/2018 Prescriptions ordered this encounter Disp Refills Start End WARFARIN 3 MG TABLET 150 * 3 09/01/2019 Si mg every Mon, Wed, Fri; 6 mg all other days Medications Discontinued During This Encounter warfarin (COUMADIN) 3 mg tablet 05/18/2019 09/01/2019 Class: Med Update Si mg every Mon, Wed, Fri; 6 mg all other days Disc: Reason for discontinue is not on file. Encounter Status:Closed by MORGAN VALDEZ III, MD on 09/01/19 obsolete on 2019-07 OBSOLETE Refill (FAMPWS) Normal 08-27-2019 [facility] LOVELY DEVI ([id number]) 1945 [place] Date Time Provider Department ([id number]) 08/27/19 DENIZ GARSIA During your visit today, we recorded the following informati on about you: Linda Ngo Jazzy 08/27/2019 11:16 AM Signed Patient has been identified by name and date of : Yes Pending Prescriptions Disp Refills CLOPIDOGREL 75 MG TABLET 90 tablet 3 Sig: Take 1 tablet by mouth once daily. ZBIGNIEW: No RX INSTRUCTIONS: Patient aware RX will be sent to pharmacy. No need to notify patient. Linda Huber Landa Last ov: 03/2019 Last refill: 05/2018 Nov: 09/2019 Kath Nielsen DNP.ELBA, SHANELLE.ELBA 08/29/2019 3:56 PM Signed The following approved medic ation requests have been transmitted electronically. Pending Prescriptions Disp Refills CLOPIDOGREL 75 MG TABLET 90 tablet 3 Sig: Take 1 tablet by mouth once daily. ZBIGNIEW: No Kath Nielsen DNP.ELBA Allergies As of Date: 08/27/2019 Noted Allergy Reaction MORPHINE 02/28/2005 ROCEPHIN (CEFTRIAXONE SODIUM) 06/20/2014 14 - Other: See Com ments Comments: Hot flashes; redness to skin Date Reviewed: 04/28/2019 Reviewed by: Linwood ([facility]) JAZZY Carpenter - Fully Assessed Reason for Visit: Refill Request [94] Primary Visit Diagnosis:Subsequent non-ST elevation (NSTEMI) myocardial infarction within 4 weeks of initial infarction (HCC) [I22.2] Order(s):clopidogrel (PLAVIX) 75 mg tabletTake 1 tablet by m outh once daily.Disp: 90 tabletRfl: 3 Prescriptions as of 08/27/2019 Sig: CLOPIDOGREL 75 MG TABLET Take 1 tablet by mouth once d* MELATONIN 5 MG CAPSULE Take 1 capsule by mouth once * INSULIN SYRINGE U-100 WITH NE* 1 Each five times daily. LISINOPRIL 20 MG TABLET Take 1 tablet by mouth once d* WARFARIN 3 MG TABLET 3 mg every Mon, Wed, Fri; 6 m* FUROSEMIDE 40 MG TABLET Take 1 tablet by mouth twice * ERGOCALCIFEROL (VITAMIN D2) 1* Take 1 capsule by mouth one t * TRAZODONE 50 MG TABLET Take 1 tablet by mouth daily * ROPINIROLE 0.5 MG TABLET Take 1 tablet by mouth daily * INSULIN LISPRO (U-100) 100 UN* 18 units with breakfast, 17 u * BIPAP Initiate BiPAP @ 24/18 cm of * FLASH GLUCOSE SENSOR KIT 1 Each four times daily. INSULIN NPH ISOPHANE U-100 HU* 32 units subcutaneous once da * BACK BRACE 1 Device once daily as needed* AMIODARONE 200 MG TABLET Take 1 tablet by mouth once d* SPIRONOLACTONE 25 MG TABLET Take 1 tablet by mouth once d* AMLODIPINE 10 MG TABLET Take 0.5 tablets by mouth onc* CARVEDILOL 3.125 MG TABLET Take 1 tablet by mouth twice * ISOSORBIDE MONONITRATE ER 30 * Take 1 tablet by mouth once d * BLOOD SUGAR DIAGNOSTIC STRIPS Use as instructed to check bl* RANOLAZINE ER 1,000 MG TABLET* Take 1 tablet by mouth twice * FENOFIBRATE NANOCRYSTALLIZED * Take 1 tablet by mouth once d * PANTOPRAZOLE 40 MG TABLET,DEL* Take 40 mg by mouth once ajay * LANCETS Use with [employer] Glucometer * ASPIRIN 81 MG TABLET Take 1 tablet by mouth once d* CRESTOR 40 MG TABLET Take one(1) tablet daily. 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*09/16/2007 Type 2 diabetes mellitus, uncontrolled (HCC) [E*02/16/2008 1 04/21/2014 ESOPHAGEAL REFLUX [K21.9] 03/06/2008 Benign Neoplasm of Colon [D12.6] 02/21/2009 Labyrinthitis [H83.09] 02/05/2010 06/07/2014 Dermatophytosis of nail [B35.1] 06/05/2011 Atrial fibrillation [I48.91] 07/03/2011 Anticoagulated on Coumadin [Z79.01] 07/03/2011 Chronic diarrhea [K52.9] 09/16/2011 06/07/2014 Class 2 severe obesity due to excess calories w*09/16/2011 Stasis dermatitis of both legs [I87.2] 04/05/2013 Foot callus [L84] 10/04/2014 Subsequent non-ST elevation (NSTEMI) myocardial*12/25/2014 Syncope [R55] 02/19/2015 Hyperlipidemia LDL goal <100 [E78.5] 02/19/2015 ASHD (arteriosclerotic heart disease) [I25.10] 02/19/2015 Neurocardiogenic syncope [R55] 03/01/2015 Dysphagia [R13.10] 03/01/2015 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 Balanitis [N48.1] 11/16/2016 Coronary angioplasty status [Z98.61] 11/16/2016 Elevated troponin I level [R79.89] 01/29/2013 More... Family history of cerebrovascular accident (CVA*01/26/2018 History of deep venous thrombosis [Z86.718] 01/26/2018 History of non-ST elevation myocardial infarcti*01/26/2018 Ischemic cardiomyopathy [I25.5] 11/20/2017 Leukocytosis [D72.829] 01/29/2013 More... JESSICA (obstructive sleep apnea) [G47.33] 07/26/2018 RLS (restless legs syndrome) [G25.81] 07/28/2018 Localized swelling, mass and lump, neck [R22.1] 07/28/2018 Acute on chronic systolic congestive heart fail*12/17/2018 Prescriptions ordered this encounter Disp Refills Start End CLOPIDOGREL 75 MG TABLET 90 t* 3 08/29/2019 Route: ORAL Sig: Take 1 tablet by mouth once daily. Medications Discontinued During This Encounter clopidogrel (PLAVIX) 75 mg tablet 90 t* 3 06/22/2018 08/29/2019 Route: ORAL Sig: Take 1 tablet by mouth once daily. Disc: Reason for discontinue is not on file. Encounter Status:Closed by KATH NIELSEN DNP, CNP on 08/29/19 elban on 2019-08-26 CNPN Telephone (NRSLME) Normal 08-26-2019 [place] MERCEDESLOVELY Quincy ([id number]) 1945 [facility] Date Time Provider Department ([id number]) 08/26/19 ARIANA BERNAL ([facility]) NRSE During your visit today, we recorded the following informati on about you: Fercho Amelia 08/26/2019 3:22 PM Signed Patient LM on RN line to discuss issues with sleep. Last seen on 03/24/19 by Ariana FRIAS and given trazodone 50 mg and to follow up in 3 months,. The past 2 days has gotten about 1-2 hours total of sleep. Broke his foot a few weeks ago. Usually gets 4-5 hours of sleep per night. Denies any changes in medication or stress. Taking trazodone nightly without improvement in sleep. Has tried melatonin without improvement. Stated he can't go on like this. Denied any thoughts of self harm or harming others. Advised we'd give him a call back but no t be today due to it being late in the day. He verbalized understanding. Ariana Bernal APRN.ELBA 08/29/2019 8:24 AM Signed Request placed for patient to be placed on either Dr. Cindi jones my schedule. Deniz George LPN 08/31/2019 9:38 AM Signed LM for patient to return call, Dr Puente has an opening this a fternoon. Allergies As of Date: 08/26/2019 Noted Allergy Reaction MORPHINE 02/28/2005 ROCEPHIN (CEFTRIAXONE SODIUM) 06/20/2014 14 - Other: See Com ments Comments: Hot flashes; redness to skin Date Reviewed: 04/28/2019 Reviewed by: Lin[place] ([facility]) JAZZY Carpenter - Fully Assessed Reason for Visit: Sleep Problem [100] Prescriptions as of 08/26/2019 Sig: X MELATONIN 5 MG CAPSULE Take 1 capsule by mouth once * Patient not taking: Reported on 09/16/2019 INSULIN SYRINGE U-100 WITH NE* 1 Each five times daily. LISINOPRIL 20 MG TABLET Take 1 tablet by mouth once d* X WARFARIN 3 MG TABLET 3 mg every Mon, Wed, Fri; 6 m* FUROSEMIDE 40 MG TABLET Take 1 tablet by mouth twice * X ERGOCALCIFEROL (VITAMIN D2) 1* Take 1 capsule by mouth one t* Patient not taking: Reported on 09/16/2019 X TRAZODONE 50 MG TABLET Take 1 tablet by mouth daily * X ROPINIROLE 0.5 MG TABLET Take 1 tablet by mouth daily * X INSULIN LISPRO (U-100) 100 UN* 18 units with breakfast, 17 u* Patient taking differently: 20 units with breakfast, 20 u* BIPAP Initiate BiPAP @ 24/18 cm of * FLASH GLUCOSE SENSOR KIT 1 Each four times daily. X INSULIN NPH ISOPHANE U-100 HU* 32 units subcutaneous once da* X CLOPIDOGREL 75 MG TABLET Take 1 tablet by mouth once d* BACK BRACE 1 Device once daily as needed* AMIODARONE 200 MG TABLET Take 1 tablet by mouth once d* SPIRONOLACTONE 25 MG TABLET Take 1 tablet by mouth once d* X AMLODIPINE 10 MG TABLET Take 0.5 tablets by mouth onc* X CARVEDILOL 3.125 MG TABLET Take 1 tablet by mouth twice * ISOSORBIDE MONONITRATE ER 30 * Take 60 mg by mouth once ajay * BLOOD SUGAR DIAGNOSTIC STRIPS Use as instructed to check bl* RANOLAZINE ER 1,000 MG TABLET* Take 1 tablet by mouth twice * FENOFIBRATE NANOCRYSTALLIZED * Take 1 tablet by mouth once d * PANTOPRAZOLE 40 MG TABLET,DEL* Take 40 mg by mouth once ajay * LANCETS Use with Onetouch Glucometer * ASPIRIN 81 MG TABLET Take 1 tablet by mouth once d* CRESTOR 40 MG TABLET Take one(1) tablet daily. 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/2007 Type 2 diabetes mellitus, uncontrolled (HCC) [E*02/16/2008 1 04/21/2014 ESOPHAGEAL REFLUX [K21.9] 03/06/2008 Benign Neoplasm of Colon [D12.6] 02/21/2009 Labyrinthitis [H83.09] 02/05/2010 06/07/2014 Dermatophytosis of nail [B35.1] 06/05/2011 Atrial fibrillation [I48.91] 07/03/2011 Anticoagulated on Coumadin [Z79.01] 07/03/2011 Chronic diarrhea [K52.9] 09/16/2011 06/07/2014 Class 2 severe obesity due to excess calories w*09/16/2011 Stasis dermatitis of both legs [I87.2] 04/05/2013 Foot callus [L84] 10/04/2014 Subsequent non-ST elevation (NSTEMI) myocardial*12/25/2014 Syncope [R55] 02/19/2015 Hyperlipidemia LDL goal <100 [E78.5] 02/19/2015 ASHD (arteriosclerotic heart disease) [I25.10] 02/19/2015 Neurocardiogenic syncope [R55] 03/01/2015 Dysphagia [R13.10] 03/01/2015 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 Balanitis [N48.1] 11/16/2016 Coronary angioplasty status [Z98.61] 11/16/2016 Elevated troponin I level [R79.89] 01/29/2013 More... Family history of cerebrovascular accident (CVA*01/26/2018 History of deep venous thrombosis [Z86.718] 01/26/2018 History of non-ST elevation myocardial infarcti*01/26/2018 Ischemic cardiomyopathy [I25.5] 11/20/2017 Leukocytosis [D72.829] 01/29/2013 More... JESSICA (obstructive sleep apnea) [G47.33] 07/26/2018 RLS (restless legs syndrome) [G25.81] 07/28/2018 Localized swelling, mass and lump, neck [R22.1] 07/28/2018 Acute on chronic systolic congestive heart fail*12/17/2018 Encounter Status:Closed by DENIZ GEORGE LPN on 10/12/19 cnpn on 2019-08-24 ELBAN Telephone (VAHE) Normal 08-24-2019 [facility] LOVELY DEVI ([id number]) 1945 [place] Date Time Provider Department () 08/24/19 ANDRE (PHARMACIST)LEE During your visit today, we recorded the following informati on about you: Allergies As of Date: 08/24/2019 Noted Allergy Reaction MORPHINE 02/28/2005 ROCEPHIN (CEFTRIAXONE SODIUM) 06/20/2014 14 - Other: See Com ments Comments: Hot flashes; redness to skin Date Reviewed: 04/28/2019 Reviewed by: [place] ([facility]) JAZZY Carpenter - Fully Assessed Reason for Visit: Anticoagulation Telephone Fu [148] Cmt: Home INR resul t,mychart message sent Primary Visit Diagnosis:Anticoagulated on Coumadin [Z79.01] Other Visit Diagnosis:Paroxysmal atrial fibrillation (HCC) [ I48.0] Prescriptions as of 08/24/2019 Sig: MELATONIN 5 MG CAPSULE Take 1 capsule by mouth once * INSULIN SYRINGE U-100 WITH NE* 1 Each five times daily. LISINOPRIL 20 MG TABLET Take 1 tablet by mouth once d* WARFARIN 3 MG TABLET 3 mg every Mon, Wed, Fri; 6 m* FUROSEMIDE 40 MG TABLET Take 1 tablet by mouth twice * ERGOCALCIFEROL (VITAMIN D2) 1* Take 1 capsule by mouth one t * TRAZODONE 50 MG TABLET Take 1 tablet by mouth daily * ROPINIROLE 0.5 MG TABLET Take 1 tablet by mouth daily * INSULIN LISPRO (U-100) 100 UN* 18 units with breakfast, 17 u * BIPAP Initiate BiPAP @ 24/18 cm of * FLASH GLUCOSE SENSOR KIT 1 Each four times daily. INSULIN NPH ISOPHANE U-100 HU* 32 units subcutaneous once da * CLOPIDOGREL 75 MG TABLET Take 1 tablet by mouth once d* BACK BRACE 1 Device once daily as needed* AMIODARONE 200 MG TABLET Take 1 tablet by mouth once d* SPIRONOLACTONE 25 MG TABLET Take 1 tablet by mouth once d* AMLODIPINE 10 MG TABLET Take 0.5 tablets by mouth onc* CARVEDILOL 3.125 MG TABLET Take 1 tablet by mouth twice * ISOSORBIDE MONONITRATE ER 30 * Take 1 tablet by mouth once d * BLOOD SUGAR DIAGNOSTIC STRIPS Use as instructed to check bl* RANOLAZINE ER 1,000 MG TABLET* Take 1 tablet by mouth twice * FENOFIBRATE NANOCRYSTALLIZED * Take 1 tablet by mouth once d * PANTOPRAZOLE 40 MG TABLET,DEL* Take 40 mg by mouth once ajay * LANCETS Use with Onetouch Glucometer * ASPIRIN 81 MG TABLET Take 1 tablet by mouth once d* CRESTOR 40 MG TABLET Take one(1) tablet daily. 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/16/2007 Type 2 diabetes mellitus, uncontrolled (HCC) [E*02/16/2008 1 04/21/2014 ESOPHAGEAL REFLUX [K21.9] 03/06/2008 Benign Neoplasm of Colon [D12.6] 02/21/2009 Labyrinthitis [H83.09] 02/05/2010 06/07/2014 Dermatophytosis of nail [B35.1] 06/05/2011 Atrial fibrillation [I48.91] 07/03/2011 Anticoagulated on Coumadin [Z79.01] 07/03/2011 Chronic diarrhea [K52.9] 09/16/2011 06/07/2014 Class 2 severe obesity due to excess calories w*09/16/2011 Stasis dermatitis of both legs [I87.2] 04/05/2013 Foot callus [L84] 10/04/2014 Subsequent non-ST elevation (NSTEMI) myocardial*12/25/2014 Syncope [R55] 02/19/2015 Hyperlipidemia LDL goal <100 [E78.5] 02/19/2015 ASHD (arteriosclerotic heart disease) [I25.10] 02/19/2015 Neurocardiogenic syncope [R55] 03/01/2015 Dysphagia [R13.10] 03/01/2015 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 Balanitis [N48.1] 11/16/2016 Coronary angioplasty status [Z98.61] 11/16/2016 Elevated troponin I level [R79.89] 01/29/2013 More... Family history of cerebrovascular accident (CVA*01/26/2018 History of deep venous thrombosis [Z86.718] 01/26/2018 History of non-ST elevation myocardial infarcti*01/26/2018 Ischemic cardiomyopathy [I25.5] 11/20/2017 Leukocytosis [D72.829] 01/29/2013 More... JESSICA (obstructive sleep apnea) [G47.33] 07/26/2018 RLS (restless legs syndrome) [G25.81] 07/28/2018 Localized swelling, mass and lump, neck [R22.1] 07/28/2018 Acute on chronic systolic congestive heart fail*12/17/2018 Encounter Status:Closed by ANDRE (PHARMACIST)LEE on progress on 2019-07 PROGRESS HNO ID: [id number] Normal 08-23-2019 [facility] Author: [place] Fowler) JAZZY Carpenter [place] ([id number]) Service: ? Author Type: Store Promoter Type: Progress Notes Filed: 08/23/2019 4:03 PM Note Text: Patient notified, voiced understanding. Lin[place] Carpenter CMA PROGRESS HNO ID: [id number] Normal 08-23-2019 [facility] Author: Morgan Valdez III [place] ([id number]) Service: ? Author Type: Physician Type: Progress Notes Filed: 08/23/2019 3:19 PM Note Text: Staff, Please notify patient that the Covid 19 test obtained on 07/28 12/17 resulted in no detection of the virus. It was negative. He should report persistent or worsening symptoms of Covid 1 9. Morgan Valdez III, MD, FAAFP Morgan Valdez III, MD, FAA PROGRESS HNO ID: [id number] Normal 08-23-2019 [facility] Author: Linwood Fowler) JAZZY Carpenter [place] ([id number]) Service: ? Author Type: Store Promoter Type: Progress Notes Filed: 08/23/2019 3:14 PM Note Text: Printed, placed on PCP's desk. Linwood Carpenter CMA PROGRESS HNO ID: [id number] Normal 08-23-2019 [facility] Author: Morgan Valdez III [place] ([id number]) Service: ? Author Type: Physician Type: Progress Notes Filed: 08/23/2019 12:34 PM Note Text: Staff, Please check [facility] to obtain Covid 19 results Morgan Valdez III MD PROGRESS HNO ID: [id number] Normal 08-23-2019 [facility] Author: Cara Zhang LPN [place] ([id number]) Service: ? Author Type: ? Type: Progress Notes Filed: 08/23/2019 11:08 AM Note Text: HIGH RISK CHRONIC DISEASE MONITORING Provider Action/FYI: Continues to have persistent URI symptoms since ER on 08/15. COVID test done but never received result. States he did not receive an y treatment/medication/RX from ER visit. Asking if he should b e seen? Contact made with patient: Yes Patient identified by name and . Discussed care with patient Hi my name is Cara Zhang BRICE and I am calling from the [facility] on behalf of your PCP, Morgan Valdez III MD Because of the Covid-19 outbreak, I am calling to help make sure you are fe eling well and that you have what you need to manage your well-being, since it is so important to stay home and take social distancing seriously to help protect your health at this time. If you have any health con cerns, we will come up with a plan on how to proceed. SYMPTOMS: I'd like to ask some question about how you are managing you r health. Would that be OK? Yes Do you have any new or worsening symptoms that you'd like to discuss with a provider? Yes - Because you've indicated you have symptoms, I'd like t o get some basic information I can share with a provider so they can as sist you. ? What is the main symptom you have noticed? ? dyspnea, dry cough ? Would you consider your symptoms severe enough to require immediate care? ? No ? Is it a new symptom? ? No ? How long have you had it? ? 2 weeks ? Is it getting better, worse or staying the same? ? Staying the same ACTION TAKEN: SYMPTOMS PRESENT NOT SEVERE - action required - patient sheron cated 'No' to severe symptoms present - routed to RX CLINICAL TRIAGE pool #[id number] and noted symptoms in the FYI box - Informed patient that you re commend further assessment from a provider to review symptoms. End O atif / Phone Call cnptoutreach on CNPTOUTREACH Patient Outreach ([facility]) Normal 0 08-23-2019 [facility] LOVELY DEVI ([id number]) 1945 [facility] Date Time Provider Department ([id number]) 08/23/19 MORGAN VALDEZ III During your visit today, we recorded the following informati on about you: Cara Zhang LPN 08/23/2019 11:08 AM Signed HIGH RISK CHRONIC DISEASE MONITORING Provider Action/FYI: Continues to have persistent URI symptoms since ER on 08/15 . COVID test done but never received result. States he did not receive any treatment/medication/RX from ER visit. Asking if he should b e seen? Contact made with patient: Yes Patient identified by name and . Discussed care with patient Hi my name is Cara mooney LPN and I am calling from the [facility] on behalf of your PCP, FEDERICO Alatorre MD of the Covid-19 outbreak, I am calling to help make sure you are feeling well and that you have what you need to manage your well-being, since it is so important to stay home and take social distancing seriously to help protect your healt h at this time. If you have any health concerns, we will come up with a plan on how to proceed. SYMPTOMS: I'd like to ask some question about how you are managing y our health. Would that be OK? Yes Do you have any new or worsening symptoms that you'd like to discuss with a provider? Yes - Because you've indicated you have symptoms, I'd like to get some basic information I can share with a provider so they can assist y ou. ? What is the main symptom you have noticed? ? dyspnea, dry cough ? Would you consider your symptoms severe enough to requir e immediate care? ? No ? Is it a new symptom? ? No ? How long have you had it? ? 2 weeks ? Is it getting better, worse or staying the same? ? Staying the same ACTION TAKEN: SYMPTOMS PRESENT NOT SEVERE - action required - patient sheron cated 'No' to severe symptoms present - routed to RX CLINICAL TRIAGE pool #[id number] and noted symptoms in the FYI box - Informed patient that you recommend further assessment from a provider to review symptoms. End Outreach / Phone Call Morgan Valdez III MD 08/23/2019 12:34 PM Signed Staff, Please check [facility] to obtain Covid 19 results FEDERICO Alatorre MD, CMA, MA 08/23/2019 3:14 PM Signed Printed, placed on PCP's desk. AUDI Rowan III MD 08/23/2019 3:19 PM Signed Staff, Please notify patient that t he Covid 19 test obtained on 08/16/19 resulted in no detection of the virus. It was negative. He should report persistent or worsening symptoms of Covid 1 9. Morgan Valdez III, MD, FAAFP Morgan Valdez III, MD, FAAFP Lin[place] Carpenter CMA, MA 08/23/2019 4:03 PM Signed Patient notified, voiced understanding. [place] Carpenter CMA Allergies As of Date: 08/23/2019 Noted Allergy Reaction MORPHINE 02/28/2005 ROCEPHIN (CEFTRIAXONE SODIUM) 06/20/2014 14 - Other: See Com ments Comments: Hot flashes; redness to skin Date Reviewed: 04/28/2019 Reviewed by: [place] Fowler) JAZZY Carpenter - Fully Assessed Reason for Visit: Community monitoring outreach [Other] Prescriptions as of 08/23/2019 Sig: MELATONIN 5 MG CAPSULE Take 1 capsule by mouth once * INSULIN SYRINGE U-100 WITH NE* 1 Each five times daily. LISINOPRIL 20 MG TABLET Take 1 tablet by mouth once d* WARFARIN 3 MG TABLET 3 mg every Mon, Wed, Fri; 6 m* FUROSEMIDE 40 MG TABLET Take 1 tablet by mouth twice * ERGOCALCIFEROL (VITAMIN D2) 1* Take 1 capsule by mouth one t * TRAZODONE 50 MG TABLET Take 1 tablet by mouth daily * ROPINIROLE 0.5 MG TABLET Take 1 tablet by mouth daily * INSULIN LISPRO (U-100) 100 UN* 18 units with breakfast, 17 u * BIPAP Initiate BiPAP @ 24/18 cm of * FLASH GLUCOSE SENSOR KIT 1 Each four times daily. INSULIN NPH ISOPHANE U-100 HU* 32 units subcutaneous once da * CLOPIDOGREL 75 MG TABLET Take 1 tablet by mouth once d* BACK BRACE 1 Device once daily as needed* AMIODARONE 200 MG TABLET Take 1 tablet by mouth once d* SPIRONOLACTONE 25 MG TABLET Take 1 tablet by mouth once d* AMLODIPINE 10 MG TABLET Take 0.5 tablets by mouth onc* CARVEDILOL 3.125 MG TABLET Take 1 tablet by mouth twice * ISOSORBIDE MONONITRATE ER 30 * Take 1 tablet by mouth once d * BLOOD SUGAR DIAGNOSTIC STRIPS Use as instructed to check bl* RANOLAZINE ER 1,000 MG TABLET* Take 1 tablet by mouth twice * FENOFIBRATE NANOCRYSTALLIZED * Take 1 tablet by mouth once d * PANTOPRAZOLE 40 MG TABLET,DEL* Take 40 mg by mouth once ajay * LANCETS Use with Onetouch Glucometer * ASPIRIN 81 MG TABLET Take 1 tablet by mouth once d* CRESTOR 40 MG TABLET Take one(1) tablet daily. 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/2007 Type 2 diabetes mellitus, uncontrolled (HCC) [E*02/16/2008 1 04/21/2014 ESOPHAGEAL REFLUX [K21.9] 03/06/2008 Benign Neoplasm of Colon [D12.6] 02/21/2009 Labyrinthitis [H83.09] 02/05/2010 06/07/2014 Dermatophytosis of nail [B35.1] 06/05/2011 Atrial fibrillation [I48.91] 07/03/2011 Anticoagulated on Coumadin [Z79.01] 07/03/2011 Chronic diarrhea [K52.9] 09/16/2011 06/07/2014 Class 2 severe obesity due to excess calories w*09/16/2011 Stasis dermatitis of both legs [I87.2] 04/05/2013 Foot callus [L84] 10/04/2014 Subsequent non-ST elevation (NSTEMI) myocardial*12/25/2014 Syncope [R55] 02/19/2015 Hyperlipidemia LDL goal <100 [E78.5] 02/19/2015 ASHD (arteriosclerotic heart disease) [I25.10] 02/19/2015 Neurocardiogenic syncope [R55] 03/01/2015 Dysphagia [R13.10] 03/01/2015 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 Balanitis [N48.1] 11/16/2016 Coronary angioplasty status [Z98.61] 11/16/2016 Elevated troponin I level [R79.89] 01/29/2013 More... Family history of cerebrovascular accident (CVA*01/26/2018 History of deep venous thrombosis [Z86.718] 01/26/2018 History of non-ST elevation myocardial infarcti*01/26/2018 Ischemic cardiomyopathy [I25.5] 11/20/2017 Leukocytosis [D72.829] 01/29/2013 More... JESSICA (obstructive sleep apnea) [G47.33] 07/26/2018 RLS (restless legs syndrome) [G25.81] 07/28/2018 Localized swelling, mass and lump, neck [R22.1] 07/28/2018 Acute on chronic systolic congestive heart fail*12/17/2018 Encounter Status:Closed by CARA ZHANG LPN on 08/23/19 progress on 2019-07 PROGRESS HNO ID: [id number] Normal 08-12-2019 [facility] Author: John Suazo RN [place] ([id number]) Service: ? Author Type: ? Type: Progress Notes Filed: 08/12/2019 11:57 AM Note Text: HIGH RISK CHRONIC DISEASE MONITORING Provider Action/FYI: Contact made with patient: Yes Patient identified by name and . Discussed care with patient Hi my name is John Suazo RN and I am calling from the [facility] on behalf of your PCP, Morgan Valdez III MD Because of the Cov id-19 outbreak, I am calling to help make sure you are feeling wel l and that you have what you need to manage your well-being, since it is so important to stay home and take social distancing seriously to help prote ct your health at this time. If you have any health concerns, we will come up with a plan on how to proceed. SYMPTOMS: I'd like to ask some question about how you are managing you r health. Would that be OK? Yes Do you have any new or worsening symptoms that you'd like to discuss with a provider? No symptoms - Continue outreach/phone call ACTION TAKEN: No Symptoms - Continue phone call MEDICATIONS: Do you have any questions about taking your medication or wh ich medications you should be on? No Do you need any medication refills at this time, including a ny of the medications you might take only when needed? No ACTION TAKEN: No action required SOCIAL: We would like to make sure you have what you need so that yo ur basics needs are met - including your personal safety, food, housin g and medications. Would you like to speak with a social work steam conditioner operator to help give you support for any of these needs? No It can be normal to feel anxious or down during a time like this. Would you like to talk to a mental health professional about how y ou have been feeling? No ACTION TAKEN: No action taken Thank you for taking the time to talk with me today. We want to work with you to ensure that we are keeping your medical conditions we ll-controlled and to keep you healthy and out of the doctor's office or [facility]. Our team would like to stay connected with you to make sure you are feeling well. Our calls should take 10 minutes or less, and we'll pl an to call you weekly for the next few weeks to months while this outbreak continues to help make sure you stay well. Remember in the meantime, if y ou have concerns in between our calls, please call your PCP's office right away. Thank you. At present, these are our recommendations regarding the radha navirus (COVID-19) outbreak: ? Avoid public places as much as possible. ? Avoid close contact (within 6 feet) with others you don't live with, especially if they are sick. ? Stay home if you are sick. ? Wash your hands regularly for at least 20 seconds with soa p and water. ? Wear a cloth mask in public places to help reduce communit y spread. ? Do not go to your Doctor's office unless instructed to do so. For any non-emergency symptoms, call your Doctor's office to get ins tructions on how to manage (we might recommend a telephone or virtual vis it). For emergency symptoms, proceed to Emergency Department as usual but inform them of cough and fever symptoms BRITTANIE if present (or call on the way if possible). Enter next patient outreach date for the following week on t he same day of the week as today in the Track Pt Outreach section. cnptoutreach on CNPTOUTREACH Patient Outreach (FAMPWS) Normal 0 08-12-2019 [facility] LOVELY DEVI ([id number]) 1945 M [place] Date Time Provider Department ([id number]) 08/12/19 JOHN SUAZO (RN) FAMPWS During your visit today, we recorded the following informati on about you: John Suazo RN 08/12/2019 11:57 AM Signed HIGH RISK CHRONIC DISEASE MONITORING Provider Action/FYI: Contact made with patient: Yes Patient identified by name and . Discussed care with patient Hi my name is John Suazo RN and I am calling from the [facility] on behalf of your PCP, FEDERICO Alatorre MD of the Covid-19 outbreak, I am calling to help make sure you are feeling well and that you have what you need to manage your well-being, since it is so important to stay home and take social distancing seriously to help protect your healt h at this time. If you have any health concerns, we will come up with a plan on how to proceed. SYMPTOMS: I'd like to ask some question about how you are managing y our health. Would that be OK? Yes Do you have any new or worsening symptoms that you'd like to discuss with a provider? No symptoms - Continue outreach/phone call ACTION TAKEN: No Symptoms - Continue phone call MEDICATIONS: Do you have any questions ab out taking your medication or which medications you should be on? No Do you need any medication refills at this time, including a ny of the medications you might take only when needed? No ACTION TAKEN: No action required SOCIAL: We would like to make sure y ou have what you need so that your basics needs are met - including your personal safety, fo od, housing and medications. Would you like to speak with a social work steam conditioner operator to help give you support for any of these needs? No It can be normal to feel anxious or down during a time lik e this. Would you like to talk to a mental health professional abo nm how you have been feeling? No ACTION TAKEN: No action taken Thank you for taking the time to talk with me to day. We want to work with you to ensure that we are keeping your medical conditions well-controlled and to keep you healthy and out of the doctor's office or [facility]. Our team would like to stay connected with you to make sure you are f eeling well. Our calls should take 10 minutes or less, and we'l l plan to call you weekly for the next few weeks to months while this outbreak continues to h elp make sure you stay well. Remember in the meantime, if you have concerns in betw een our calls, please call your PCP's office right away. Thank you. At present, these are our recommendation s regarding the coronavirus (COVID-19) outbreak: ? Avoid public places as much as possible. ? Avoid close contact (within 6 feet) with others you don't live with, especially if they are sick. ? Stay home if you are sick. ? Wash your hands regularly for at least 20 seconds with soa p and water. ? Wear a cloth mask in public places to help reduce communit y spread. ? Do not go to your Doctor's office unless instructed to do so. For any non-emergency symptoms, call your Doctor's office to get instructions on how to manage (we might recommend a telephone or virtual visit). Fo r emergency symptoms, proceed to Emergen cy Department as usual but inform them of cough and fever symptoms BRITTANIE if present (or call on the way if ghazal glass). Enter next patient outreach date for the following week on the same day of the week as today in the Track Pt Outreach section. Allergies As of Date: 08/12/2019 Noted Allergy Reaction MORPHINE 02/28/2005 ROCEPHIN (CEFTRIAXONE SODIUM) 06/20/2014 14 - Other: See Com ments Comments: Hot flashes; redness to skin Date Reviewed: 04/28/2019 Reviewed by: [place] ([facility]) JAZZY Carpenter - Fully Assessed Reason for Visit: Community Monitoring Outreach [Other] Cmt: week 4 Prescriptions as of 08/12/2019 Sig: INSULIN SYRINGE U-100 WITH NE* 1 Each five times daily. LISINOPRIL 20 MG TABLET Take 1 tablet by mouth once d* WARFARIN 3 MG TABLET 3 mg every Mon, Wed, Fri; 6 m* FUROSEMIDE 40 MG TABLET Take 1 tablet by mouth twice * ERGOCALCIFEROL (VITAMIN D2) 1* Take 1 capsule by mouth one t * TRAZODONE 50 MG TABLET Take 1 tablet by mouth daily * ROPINIROLE 0.5 MG TABLET Take 1 tablet by mouth daily * INSULIN LISPRO (U-100) 100 UN* 18 units with breakfast, 17 u * BIPAP Initiate BiPAP @ 24/18 cm of * FLASH GLUCOSE SENSOR KIT 1 Each four times daily. INSULIN NPH ISOPHANE U-100 HU* 32 units subcutaneous once da * CLOPIDOGREL 75 MG TABLET Take 1 tablet by mouth once d* BACK BRACE 1 Device once daily as needed* AMIODARONE 200 MG TABLET Take 1 tablet by mouth once d* SPIRONOLACTONE 25 MG TABLET Take 1 tablet by mouth once d* AMLODIPINE 10 MG TABLET Take 0.5 tablets by mouth onc* CARVEDILOL 3.125 MG TABLET Take 1 tablet by mouth twice * ISOSORBIDE MONONITRATE ER 30 * Take 1 tablet by mouth once d * BLOOD SUGAR DIAGNOSTIC STRIPS Use as instructed to check bl* RANOLAZINE ER 1,000 MG TABLET* Take 1 tablet by mouth twice * FENOFIBRATE NANOCRYSTALLIZED * Take 1 tablet by mouth once d * PANTOPRAZOLE 40 MG TABLET,DEL* Take 40 mg by mouth once ajay * LANCETS Use with Onetouch Glucometer * ASPIRIN 81 MG TABLET Take 1 tablet by mouth once d* CRESTOR 40 MG TABLET Take one(1) tablet daily. 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/16/2007 Type 2 diabetes mellitus, uncontrolled (HCC) [E*02/16/2008 1 04/21/2014 ESOPHAGEAL REFLUX [K21.9] 03/06/2008 Benign Neoplasm of Colon [D12.6] 02/21/2009 Labyrinthitis [H83.09] 02/05/2010 06/07/2014 Dermatophytosis of nail [B35.1] 06/05/2011 Atrial fibrillation [I48.91] 07/03/2011 Anticoagulated on Coumadin [Z79.01] 07/03/2011 Chronic diarrhea [K52.9] 09/16/2011 06/07/2014 Class 2 severe obesity due to excess calories w*09/16/2011 Stasis dermatitis of both legs [I87.2] 04/05/2013 Foot callus [L84] 10/04/2014 Subsequent non-ST elevation (NSTEMI) myocardial*12/25/2014 Syncope [R55] 02/19/2015 Hyperlipidemia LDL goal <100 [E78.5] 02/19/2015 ASHD (arteriosclerotic heart disease) [I25.10] 02/19/2015 Neurocardiogenic syncope [R55] 03/01/2015 Dysphagia [R13.10] 03/01/2015 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 Balanitis [N48.1] 11/16/2016 Coronary angioplasty status [Z98.61] 11/16/2016 Elevated troponin I level [R79.89] 01/29/2013 More... Family history of cerebrovascular accident (CVA*01/26/2018 History of deep venous thrombosis [Z86.718] 01/26/2018 History of non-ST elevation myocardial infarcti*01/26/2018 Ischemic cardiomyopathy [I25.5] 11/20/2017 Leukocytosis [D72.829] 01/29/2013 More... JESSICA (obstructive sleep apnea) [G47.33] 07/26/2018 RLS (restless legs syndrome) [G25.81] 07/28/2018 Localized swelling, mass and lump, neck [R22.1] 07/28/2018 Acute on chronic systolic congestive heart fail*12/17/2018 Encounter Status:Closed by JOHN SUAZO RN on 08/12/19 [place] on 2019-08-11 CNPN Telephone (NEMOWS) Normal 08-11-2019 [facility] LOVELY DEVI ([id number]) 1945 M [place] Date Time Provider Department ([id number]) 08/11/19 ARIANA BERNAL (ELBA) NEMOWS During your visit today, we recorded the following informati on about you: Donna Jose LPN 08/11/2019 11:21 AM Signed Left message notifying pt to contact office so appt 08/25/2019 can be changed to MyChart Video Visit, and staff could help with any questio ns as needed with accessing this. Donna Jose LPN 08/11/2019 4:13 PM Signed Patient apparently called in spoke with scheduling staff; appt was rescheduled for later in the summer. Donna Jose LPN Allergies As of Date: 08/11/2019 Noted Allergy Reaction MORPHINE 02/28/2005 ROCEPHIN (CEFTRIAXONE SODIUM) 06/20/2014 14 - Other: See Com ments Comments: Hot flashes; redness to skin Date Reviewed: 04/28/2019 Reviewed by: [place] ([facility]) JAZZY Carpenter - Fully Assessed Reason for Visit: Appointment [186] Prescriptions as of 08/11/2019 Sig: INSULIN SYRINGE U-100 WITH NE* 1 Each five times daily. LISINOPRIL 20 MG TABLET Take 1 tablet by mouth once d* WARFARIN 3 MG TABLET 3 mg every Mon, Wed, Fri; 6 m* FUROSEMIDE 40 MG TABLET Take 1 tablet by mouth twice * ERGOCALCIFEROL (VITAMIN D2) 1* Take 1 capsule by mouth one t * TRAZODONE 50 MG TABLET Take 1 tablet by mouth daily * ROPINIROLE 0.5 MG TABLET Take 1 tablet by mouth daily * INSULIN LISPRO (U-100) 100 UN* 18 units with breakfast, 17 u * BIPAP Initiate BiPAP @ 24/18 cm of * FLASH GLUCOSE SENSOR KIT 1 Each four times daily. INSULIN NPH ISOPHANE U-100 HU* 32 units subcutaneous once da * CLOPIDOGREL 75 MG TABLET Take 1 tablet by mouth once d* BACK BRACE 1 Device once daily as needed* AMIODARONE 200 MG TABLET Take 1 tablet by mouth once d* SPIRONOLACTONE 25 MG TABLET Take 1 tablet by mouth once d* AMLODIPINE 10 MG TABLET Take 0.5 tablets by mouth onc* CARVEDILOL 3.125 MG TABLET Take 1 tablet by mouth twice * ISOSORBIDE MONONITRATE ER 30 * Take 1 tablet by mouth once d * BLOOD SUGAR DIAGNOSTIC STRIPS Use as instructed to check bl* RANOLAZINE ER 1,000 MG TABLET* Take 1 tablet by mouth twice * FENOFIBRATE NANOCRYSTALLIZED * Take 1 tablet by mouth once d * PANTOPRAZOLE 40 MG TABLET,DEL* Take 40 mg by mouth once ajay * LANCETS Use with Onetouch Glucometer * ASPIRIN 81 MG TABLET Take 1 tablet by mouth once d* CRESTOR 40 MG TABLET Take one(1) tablet daily. 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/2007 Type 2 diabetes mellitus, uncontrolled (HCC) [E*02/16/2008 1 04/21/2014 ESOPHAGEAL REFLUX [K21.9] 03/06/2008 Benign Neoplasm of Colon [D12.6] 02/21/2009 Labyrinthitis [H83.09] 02/05/2010 06/07/2014 Dermatophytosis of nail [B35.1] 06/05/2011 Atrial fibrillation [I48.91] 07/03/2011 Anticoagulated on Coumadin [Z79.01] 07/03/2011 Chronic diarrhea [K52.9] 09/16/2011 06/07/2014 Class 2 severe obesity due to excess calories w*09/16/2011 Stasis dermatitis of both legs [I87.2] 04/05/2013 Foot callus [L84] 10/04/2014 Subsequent non-ST elevation (NSTEMI) myocardial*12/25/2014 Syncope [R55] 02/19/2015 Hyperlipidemia LDL goal <100 [E78.5] 02/19/2015 ASHD (arteriosclerotic heart disease) [I25.10] 02/19/2015 Neurocardiogenic syncope [R55] 03/01/2015 Dysphagia [R13.10] 03/01/2015 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 Balanitis [N48.1] 11/16/2016 Coronary angioplasty status [Z98.61] 11/16/2016 Elevated troponin I level [R79.89] 01/29/2013 More... Family history of cerebrovascular accident (CVA*01/26/2018 History of deep venous thrombosis [Z86.718] 01/26/2018 History of non-ST elevation myocardial infarcti*01/26/2018 Ischemic cardiomyopathy [I25.5] 11/20/2017 Leukocytosis [D72.829] 01/29/2013 More... JESSICA (obstructive sleep apnea) [G47.33] 07/26/2018 RLS (restless legs syndrome) [G25.81] 07/28/2018 Localized swelling, mass and lump, neck [R22.1] 07/28/2018 Acute on chronic systolic congestive heart fail*12/17/2018 Encounter Status:Closed by DONNA JOSE LPN on 08/11/19 CNPN Telephone ([employer]) Normal 08-11-2019 [facility] LOVELY DEVI ([id number]) 1945 M [place] Date Time Provider Department ([id number]) 08/11/19 ANUP (PHARMACIST)FAHEEM During your visit today, we recorded the following informati on about you: Anshul Almeida 08/11/2019 4:20 PM Addendum Error Julian Espinosa, PharmD Allergies As of Date: 08/11/2019 Noted Allergy Reaction MORPHINE 02/28/2005 ROCEPHIN (CEFTRIAXONE SODIUM) 06/20/2014 14 - Other: See Com ments Comments: Hot flashes; redness to skin Date Reviewed: 04/28/2019 Reviewed by: [place] ([facility]) JAZZY Carpenter - Fully Assessed Reason for Visit: Anticoagulation Telephone Fu [148] Prescriptions as of 08/11/2019 Sig: INSULIN SYRINGE U-100 WITH NE* 1 Each five times daily. LISINOPRIL 20 MG TABLET Take 1 tablet by mouth once d* WARFARIN 3 MG TABLET 3 mg every Mon, Wed, Fri; 6 m* FUROSEMIDE 40 MG TABLET Take 1 tablet by mouth twice * ERGOCALCIFEROL (VITAMIN D2) 1* Take 1 capsule by mouth one t * TRAZODONE 50 MG TABLET Take 1 tablet by mouth daily * ROPINIROLE 0.5 MG TABLET Take 1 tablet by mouth daily * INSULIN LISPRO (U-100) 100 UN* 18 units with breakfast, 17 u * BIPAP Initiate BiPAP @ 24/18 cm of * FLASH GLUCOSE SENSOR KIT 1 Each four times daily. INSULIN NPH ISOPHANE U-100 HU* 32 units subcutaneous once da * CLOPIDOGREL 75 MG TABLET Take 1 tablet by mouth once d* BACK BRACE 1 Device once daily as needed* AMIODARONE 200 MG TABLET Take 1 tablet by mouth once d* SPIRONOLACTONE 25 MG TABLET Take 1 tablet by mouth once d* AMLODIPINE 10 MG TABLET Take 0.5 tablets by mouth onc* CARVEDILOL 3.125 MG TABLET Take 1 tablet by mouth twice * ISOSORBIDE MONONITRATE ER 30 * Take 1 tablet by mouth once d * BLOOD SUGAR DIAGNOSTIC STRIPS Use as instructed to check bl* RANOLAZINE ER 1,000 MG TABLET* Take 1 tablet by mouth twice * FENOFIBRATE NANOCRYSTALLIZED * Take 1 tablet by mouth once d * PANTOPRAZOLE 40 MG TABLET,DEL* Take 40 mg by mouth once ajay * LANCETS Use with Onetouch Glucometer * ASPIRIN 81 MG TABLET Take 1 tablet by mouth once d* CRESTOR 40 MG TABLET Take one(1) tablet daily. 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/2007 Type 2 diabetes mellitus, uncontrolled (HCC) [E*02/16/2008 1 04/21/2014 ESOPHAGEAL REFLUX [K21.9] 03/06/2008 Benign Neoplasm of Colon [D12.6] 02/21/2009 Labyrinthitis [H83.09] 02/05/2010 06/07/2014 Dermatophytosis of nail [B35.1] 06/05/2011 Atrial fibrillation [I48.91] 07/03/2011 Anticoagulated on Coumadin [Z79.01] 07/03/2011 Chronic diarrhea [K52.9] 09/16/2011 06/07/2014 Class 2 severe obesity due to excess calories w*09/16/2011 Stasis dermatitis of both legs [I87.2] 04/05/2013 Foot callus [L84] 10/04/2014 Subsequent non-ST elevation (NSTEMI) myocardial*12/25/2014 Syncope [R55] 02/19/2015 Hyperlipidemia LDL goal <100 [E78.5] 02/19/2015 ASHD (arteriosclerotic heart disease) [I25.10] 02/19/2015 Neurocardiogenic syncope [R55] 03/01/2015 Dysphagia [R13.10] 03/01/2015 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 Balanitis [N48.1] 11/16/2016 Coronary angioplasty status [Z98.61] 11/16/2016 Elevated troponin I level [R79.89] 01/29/2013 More... Family history of cerebrovascular accident (CVA*01/26/2018 History of deep venous thrombosis [Z86.718] 01/26/2018 History of non-ST elevation myocardial infarcti*01/26/2018 Ischemic cardiomyopathy [I25.5] 11/20/2017 Leukocytosis [D72.829] 01/29/2013 More... JESSICA (obstructive sleep apnea) [G47.33] 07/26/2018 RLS (restless legs syndrome) [G25.81] 07/28/2018 Localized swelling, mass and lump, neck [R22.1] 07/28/2018 Acute on chronic systolic congestive heart fail*12/17/2018 Encounter Status:Closed by ANUP (PHARMACIST)JULIAN on cnpn on 2019-08-10 CNPN Telephone (INTMMN) Normal 08-10-2019 [facility] LOVELY DEVI ([id number]) 1945 [place] Date Time Provider Department ([id number]) 08/10/19 ANGIE (PHARMACIST)ALEXIA During your visit today, we recorded the following informati on about you: ALEXIA ADAMS PHARMACIST 08/10/2019 9:46 AM Signed MyChart sent. Alexia Adams, PharmD, BCACP Allergies As of Date: 08/10/2019 Noted Allergy Reaction MORPHINE 02/28/2005 ROCEPHIN (CEFTRIAXONE SODIUM) 06/20/2014 14 - Other: See Com ments Comments: Hot flashes; redness to skin Date Reviewed: 04/28/2019 Reviewed by: [place] ([facility]) JAZZY Carpenter - Fully Assessed Reason for Visit: Anticoagulation Telephone Fu [148] Cmt: INR Home Test Result Primary Visit Diagnosis:Anticoagulated on Coumadin [Z79.01] Other Visit Diagnosis:Paroxysmal atrial fibrillation (HCC) [ I48.0] Prescriptions as of 08/10/2019 Sig: INSULIN SYRINGE U-100 WITH NE* 1 Each five times daily. LISINOPRIL 20 MG TABLET Take 1 tablet by mouth once d* WARFARIN 3 MG TABLET 3 mg every Mon, Wed, Fri; 6 m* FUROSEMIDE 40 MG TABLET Take 1 tablet by mouth twice * ERGOCALCIFEROL (VITAMIN D2) 1* Take 1 capsule by mouth one t * TRAZODONE 50 MG TABLET Take 1 tablet by mouth daily * ROPINIROLE 0.5 MG TABLET Take 1 tablet by mouth daily * INSULIN LISPRO (U-100) 100 UN* 18 units with breakfast, 17 u * BIPAP Initiate BiPAP @ 24/18 cm of * FLASH GLUCOSE SENSOR KIT 1 Each four times daily. INSULIN NPH ISOPHANE U-100 HU* 32 units subcutaneous once da * CLOPIDOGREL 75 MG TABLET Take 1 tablet by mouth once d* BACK BRACE 1 Device once daily as needed* AMIODARONE 200 MG TABLET Take 1 tablet by mouth once d* SPIRONOLACTONE 25 MG TABLET Take 1 tablet by mouth once d* AMLODIPINE 10 MG TABLET Take 0.5 tablets by mouth onc* CARVEDILOL 3.125 MG TABLET Take 1 tablet by mouth twice * ISOSORBIDE MONONITRATE ER 30 * Take 1 tablet by mouth once d * BLOOD SUGAR DIAGNOSTIC STRIPS Use as instructed to check bl* RANOLAZINE ER 1,000 MG TABLET* Take 1 tablet by mouth twice * FENOFIBRATE NANOCRYSTALLIZED * Take 1 tablet by mouth once d * PANTOPRAZOLE 40 MG TABLET,DEL* Take 40 mg by mouth once ajay * LANCETS Use with [employer] Glucometer * ASPIRIN 81 MG TABLET Take 1 tablet by mouth once d* CRESTOR 40 MG TABLET Take one(1) tablet daily. 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.6] 02/21/2009 Labyrinthitis [H83.09] 02/05/2010 06/07/2014 Dermatophytosis of nail [B35.1] 06/05/2011 Atrial fibrillation [I48.91] 07/03/2011 Anticoagulated on Coumadin [Z79.01] 07/03/2011 Chronic diarrhea [K52.9] 09/16/2011 06/07/2014 Class 2 severe obesity due to excess calories w*09/16/2011 Stasis dermatitis of both legs [I87.2] 04/05/2013 Foot callus [L84] 10/04/2014 Subsequent non-ST elevation (NSTEMI) myocardial*12/25/2014 Syncope [R55] 02/19/2015 Hyperlipidemia LDL goal <100 [E78.5] 02/19/2015 ASHD (arteriosclerotic heart disease) [I25.10] 02/19/2015 Neurocardiogenic syncope [R55] 03/01/2015 Dysphagia [R13.10] 03/01/2015 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 Balanitis [N48.1] 11/16/2016 Coronary angioplasty status [Z98.61] 11/16/2016 Elevated troponin I level [R79.89] 01/29/2013 More... Family history of cerebrovascular accident (CVA*01/26/2018 History of deep venous thrombosis [Z86.718] 01/26/2018 History of non-ST elevation myocardial infarcti*01/26/2018 Ischemic cardiomyopathy [I25.5] 11/20/2017 Leukocytosis [D72.829] 01/29/2013 More... JESSICA (obstructive sleep apnea) [G47.33] 07/26/2018 RLS (restless legs syndrome) [G25.81] 07/28/2018 Localized swelling, mass and lump, neck [R22.1] 07/28/2018 Acute on chronic systolic congestive heart fail*12/17/2018 Encounter Status:Closed by ANGIE (PHARMACIST)ALEXIA on progress on 2019-07 PROGRESS HNO ID: [id number] Normal 08-05-2019 [facility] Author: John Suazo RN [place] ([id number]) Service: ? Author Type: ? Type: Progress Notes Filed: 08/05/2019 3:25 PM Note Text: HIGH RISK CHRONIC DISEASE MONITORING Provider Action/FYI: Contact made with patient: Yes Patient identified by name and . Discussed care with patient Hi my name is John Suazo RN and I am calling from the [facility] on behalf of your PCP, Morgan Valdez III MD Because of the Cov id-19 outbreak, I am calling to help make sure you are feeling wel l and that you have what you need to manage your well-being, since it is so important to stay home and take social distancing seriously to help prote ct your health at this time. If you have any health concerns, we will come up with a plan on how to proceed. SYMPTOMS: I'd like to ask some question about how you are managing you r health. Would that be OK? Yes Do you have any new or worsening symptoms that you'd like to discuss with a provider? No symptoms - Continue outreach/phone call ACTION TAKEN: No Symptoms - Continue phone call MEDICATIONS: Do you have any questions about taking your medication or wh ich medications you should be on? No Do you need any medication refills at this time, including a ny of the medications you might take only when needed? No ACTION TAKEN: No action required SOCIAL: We would like to make sure you have what you need so that yo ur basics needs are met - including your personal safety, food, housin g and medications. Would you like to speak with a social work steam conditioner operator to help give you support for any of these needs? No It can be normal to feel anxious or down during a time like this. Would you like to talk to a mental health professional about how y ou have been feeling? No ACTION TAKEN: No action taken Thank you for taking the time to talk with me today. We want to work with you to ensure that we are keeping your medical conditions we ll-controlled and to keep you healthy and out of the doctor's office or [facility]. Our team would like to stay connected with you to make sure you are feeling well. Our calls should take 10 minutes or less, and we'll pl an to call you weekly for the next few weeks to months while this outbreak continues to help make sure you stay well. Remember in the meantime, if y ou have concerns in between our calls, please call your PCP's office right away. Thank you. At present, these are our recommendations regarding the radha navirus (COVID-19) outbreak: ? Avoid public places as much as possible. ? Avoid close contact (within 6 feet) with others you don't live with, especially if they are sick. ? Stay home if you are sick. ? Wash your hands regularly for at least 20 seconds with soa p and water. ? Wear a cloth mask in public places to help reduce communit y spread. ? Do not go to your Doctor's office unless instructed to do so. For any non-emergency symptoms, call your Doctor's office to get ins tructions on how to manage (we might recommend a telephone or virtual vis it). For emergency symptoms, proceed to Emergency Department as usual but inform them of cough and fever symptoms BRITTANIE if present (or call on the way if possible). Enter next patient outreach date for the following week on t he same day of the week as today in the Track Pt Outreach section. cnptoutreach on CNPTOUTREACH [facility] Normal 0 08-05-2019 [place] [facility] LOVELY DEVI ([id number]) 1945 M [place] Date Time Provider Department ([id number]) 08/05/19 JOHN SUAZO (RN) RENEEWS During your visit today, we recorded the following informati on about you: John Suazo RN 08/05/2019 3:25 PM Signed HIGH RISK CHRONIC DISEASE MONITORING Provider Action/FYI: Contact made with patient: Yes Patient identified by name and . Discussed care with patient Hi my name is John Suazo RN and I am calling from the [facility] on behalf of your PCP, FEDERICO Alatorre MD of the Covid-19 outbreak, I am calling to help make sure you are feeling well and that you have what you need to manage your well-being, since it is so important to stay home and take social distancing seriously to help protect your healt h at this time. If you have any health concerns, we will come up with a plan on how to proceed. SYMPTOMS: I'd like to ask some question about how you are managing y our health. Would that be OK? Yes Do you have any new or worsening symptoms that you'd like to discuss with a provider? No symptoms - Continue outreach/phone call ACTION TAKEN: No Symptoms - Continue phone call MEDICATIONS: Do you have any questions ab out taking your medication or which medications you should be on? No Do you need any medication refills at this time, including a ny of the medications you might take only when needed? No ACTION TAKEN: No action required SOCIAL: We would like to make sure y ou have what you need so that your basics needs are met - including your personal safety, fo od, housing and medications. Would you like to speak with a social work steam conditioner operator to help give you support for any of these needs? No It can be normal to feel anxious or down during a time lik e this. Would you like to talk to a mental health professional abo ut how you have been feeling? No ACTION TAKEN: No action taken Thank you for taking the time to talk with me to day. We want to work with you to ensure that we are keeping your medical conditions well-controlled and to keep you healthy and out of the doctor's office or [facility]. Our team would like to stay connected with you to make sure you are f eeling well. Our calls should take 10 minutes or less, and we'l l plan to call you weekly for the next few weeks to months while this outbreak continues to h elp make sure you stay well. Remember in the meantime, if you have concerns in betw een our calls, please call your PCP's office right away. Thank you. At present, these are our recommendation s regarding the coronavirus (COVID-19) outbreak: ? Avoid public places as much as possible. ? Avoid close contact (within 6 feet) with others you don't live with, especially if they are sick. ? Stay home if you are sick. ? Wash your hands regularly for at least 20 seconds with soa p and water. ? Wear a cloth mask in public places to help reduce communit y spread. ? Do not go to your Doctor's office unless instructed to do so. For any non-emergency symptoms, call your Doctor's office to get instructions on how to manage (we might recommend a telephone or virtual visit). Fo r emergency symptoms, proceed to Emergen cy Department as usual but inform them of cough and fever symptoms BRITTANIE if present (or call on the way if possib le). Enter next patient outreach date for the following week on the same day of the week as today in the Track Pt Outreach section. Allergies As of Date: 08/05/2019 Noted Allergy Reaction MORPHINE 02/28/2005 ROCEPHIN (CEFTRIAXONE SODIUM) 06/20/2014 14 - Other: See Com ments Comments: Hot flashes; redness to skin Date Reviewed: 04/28/2019 Reviewed by: [place] ([facility]) JAZZY Carpenter - Fully Assessed Reason for Visit: Community Outreach Monitoring [Other] Cmt: week 3 Prescriptions as of 08/05/2019 Sig: INSULIN SYRINGE U-100 WITH NE* 1 Each five times daily. LISINOPRIL 20 MG TABLET Take 1 tablet by mouth once d* WARFARIN 3 MG TABLET 3 mg every Mon, Wed, Fri; 6 m* FUROSEMIDE 40 MG TABLET Take 1 tablet by mouth twice * ERGOCALCIFEROL (VITAMIN D2) 1* Take 1 capsule by mouth one t * TRAZODONE 50 MG TABLET Take 1 tablet by mouth daily * ROPINIROLE 0.5 MG TABLET Take 1 tablet by mouth daily * INSULIN LISPRO (U-100) 100 UN* 18 units with breakfast, 17 u * BIPAP Initiate BiPAP @ 24/18 cm of * FLASH GLUCOSE SENSOR KIT 1 Each four times daily. INSULIN NPH ISOPHANE U-100 HU* 32 units subcutaneous once da * CLOPIDOGREL 75 MG TABLET Take 1 tablet by mouth once d* BACK BRACE 1 Device once daily as needed* AMIODARONE 200 MG TABLET Take 1 tablet by mouth once d* SPIRONOLACTONE 25 MG TABLET Take 1 tablet by mouth once d* AMLODIPINE 10 MG TABLET Take 0.5 tablets by mouth onc* CARVEDILOL 3.125 MG TABLET Take 1 tablet by mouth twice * ISOSORBIDE MONONITRATE ER 30 * Take 1 tablet by mouth once d * BLOOD SUGAR DIAGNOSTIC STRIPS Use as instructed to check bl* RANOLAZINE ER 1,000 MG TABLET* Take 1 tablet by mouth twice * FENOFIBRATE NANOCRYSTALLIZED * Take 1 tablet by mouth once d * PANTOPRAZOLE 40 MG TABLET,DEL* Take 40 mg by mouth once ajay * LANCETS Use with [employer] Glucometer * ASPIRIN 81 MG TABLET Take 1 tablet by mouth once d* CRESTOR 40 MG TABLET Take one(1) tablet daily. 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.6] 02/21/2009 Labyrinthitis [H83.09] 02/05/2010 06/07/2014 Dermatophytosis of nail [B35.1] 06/05/2011 Atrial fibrillation [I48.91] 07/03/2011 Anticoagulated on Coumadin [Z79.01] 07/03/2011 Chronic diarrhea [K52.9] 09/16/2011 06/07/2014 Class 2 severe obesity due to excess calories w*09/16/2011 Stasis dermatitis of both legs [I87.2] 04/05/2013 Foot callus [L84] 10/04/2014 Subsequent non-ST elevation (NSTEMI) myocardial*12/25/2014 Syncope [R55] 02/19/2015 Hyperlipidemia LDL goal <100 [E78.5] 02/19/2015 ASHD (arteriosclerotic heart disease) [I25.10] 02/19/2015 Neurocardiogenic syncope [R55] 03/01/2015 Dysphagia [R13.10] 03/01/2015 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 Balanitis [N48.1] 11/16/2016 Coronary angioplasty status [Z98.61] 11/16/2016 Elevated troponin I level [R79.89] 01/29/2013 More... Family history of cerebrovascular accident (CVA*01/26/2018 History of deep venous thrombosis [Z86.718] 01/26/2018 History of non-ST elevation myocardial infarcti*01/26/2018 Ischemic cardiomyopathy [I25.5] 11/20/2017 Leukocytosis [D72.829] 01/29/2013 More... JESSICA (obstructive sleep apnea) [G47.33] 07/26/2018 RLS (restless legs syndrome) [G25.81] 07/28/2018 Localized swelling, mass and lump, neck [R22.1] 07/28/2018 Acute on chronic systolic congestive heart fail*12/17/2018 Encounter Status:Closed by JOHN SUAZO RN on 08/05/19 cnpn on 2019-08-02 CNPN Telephone ([facility]) Normal 08-02-2019 [place] [facility] LOVELY DEVI ([id number]) 1945 M [facility] Time Provider Department ([id number]) 08/02/19 MORGAN VALDEZ III During your visit today, we recorded the following informati on about you: Cindi Pichardo RN 08/02/2019 11:41 AM Signed Patient saw Dr. Merritt and reports that his left foot is br oken, unknown cause. Started hurting 6 days ago and he could h ardly walk but he has no idea how it broke. Dr. Merritt wanted patient to ask if safe to t tana Tylenol or another otc pain medication that PCP can advise, based on me dical history. Please review and advise. DRAGAN Valdez III MD 08/02/2019 12:12 PM Signed Because the patient is anticoagulated with Coumadin, he anton ot take the nonsteroidal anti-inflammatory drugs. If Dr. Merritt wants h im only on [id number] pain medication, then t he patient should take Tylenol 1000 mg by mouth 3 times a day for pain FEDERICO Alatorre MD, CMA, MA 08/02/2019 12:35 PM Signed Patient notified, voiced understanding. Linwood Carpenter CMA Allergies As of Date: 08/02/2019 Noted Allergy Reaction MORPHINE 02/28/2005 ROCEPHIN (CEFTRIAXONE SODIUM) 06/20/2014 14 - Other: See Com ments Comments: Hot flashes; redness to skin Date Reviewed: 04/28/2019 Reviewed by: Linwood Fowler) JAZZY Carpenter - Fully Assessed Reason for Visit: Medication Question [1478] Prescriptions as of 08/02/2019 Sig: INSULIN SYRINGE U-100 WITH NE* 1 Each five times daily. LISINOPRIL 20 MG TABLET Take 1 tablet by mouth once d* WARFARIN 3 MG TABLET 3 mg every Mon, Wed, Fri; 6 m* FUROSEMIDE 40 MG TABLET Take 1 tablet by mouth twice * ERGOCALCIFEROL (VITAMIN D2) 1* Take 1 capsule by mouth one t * TRAZODONE 50 MG TABLET Take 1 tablet by mouth daily * ROPINIROLE 0.5 MG TABLET Take 1 tablet by mouth daily * INSULIN LISPRO (U-100) 100 UN* 18 units with breakfast, 17 u * BIPAP Initiate BiPAP @ 24/18 cm of * FLASH GLUCOSE SENSOR KIT 1 Each four times daily. INSULIN NPH ISOPHANE U-100 HU* 32 units subcutaneous once da * CLOPIDOGREL 75 MG TABLET Take 1 tablet by mouth once d* BACK BRACE 1 Device once daily as needed* AMIODARONE 200 MG TABLET Take 1 tablet by mouth once d* SPIRONOLACTONE 25 MG TABLET Take 1 tablet by mouth once d* AMLODIPINE 10 MG TABLET Take 0.5 tablets by mouth onc* CARVEDILOL 3.125 MG TABLET Take 1 tablet by mouth twice * ISOSORBIDE MONONITRATE ER 30 * Take 1 tablet by mouth once d * BLOOD SUGAR DIAGNOSTIC STRIPS Use as instructed to check bl* RANOLAZINE ER 1,000 MG TABLET* Take 1 tablet by mouth twice * FENOFIBRATE NANOCRYSTALLIZED * Take 1 tablet by mouth once d * PANTOPRAZOLE 40 MG TABLET,DEL* Take 40 mg by mouth once ajay * LANCETS Use with Onetouch Glucometer * ASPIRIN 81 MG TABLET Take 1 tablet by mouth once d* CRESTOR 40 MG TABLET Take one(1) tablet daily. 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/16/2007 Type 2 diabetes mellitus, uncontrolled (HCC) [E*02/16/2008 1 04/21/2014 ESOPHAGEAL REFLUX [K21.9] 03/06/2008 Benign Neoplasm of Colon [D12.6] 02/21/2009 Labyrinthitis [H83.09] 02/05/2010 06/07/2014 Dermatophytosis of nail [B35.1] 06/05/2011 Atrial fibrillation [I48.91] 07/03/2011 Anticoagulated on Coumadin [Z79.01] 07/03/2011 Chronic diarrhea [K52.9] 09/16/2011 06/07/2014 Class 2 severe obesity due to excess calories w*09/16/2011 Stasis dermatitis of both legs [I87.2] 04/05/2013 Foot callus [L84] 10/04/2014 Subsequent non-ST elevation (NSTEMI) myocardial*12/25/2014 Syncope [R55] 02/19/2015 Hyperlipidemia LDL goal <100 [E78.5] 02/19/2015 ASHD (arteriosclerotic heart disease) [I25.10] 02/19/2015 Neurocardiogenic syncope [R55] 03/01/2015 Dysphagia [R13.10] 03/01/2015 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 Balanitis [N48.1] 11/16/2016 Coronary angioplasty status [Z98.61] 11/16/2016 Elevated troponin I level [R79.89] 01/29/2013 More... Family history of cerebrovascular accident (CVA*01/26/2018 History of deep venous thrombosis [Z86.718] 01/26/2018 History of non-ST elevation myocardial infarcti*01/26/2018 Ischemic cardiomyopathy [I25.5] 11/20/2017 Leukocytosis [D72.829] 01/29/2013 More... JESSICA (obstructive sleep apnea) [G47.33] 07/26/2018 RLS (restless legs syndrome) [G25.81] 07/28/2018 Localized swelling, mass and lump, neck [R22.1] 07/28/2018 Acute on chronic systolic congestive heart fail*12/17/2018 Encounter Status:Closed by LINWOOD CARPENTER CMA on 08/02/19 progress on 2019-07 PROGRESS HNO ID: [id number] Normal 07-29-2019 [facility] Author: Vera (Network Navigator) Nakul Amado ([id number]) Service: ? Author Type: Store Promoter Type: Progress Notes Filed: 07/29/2019 3:10 PM Note Text: HIGH RISK CHRONIC DISEASE MONITORING Provider Action/FYI: Dr. Valdez- pt needs refill of Lasix 40 mg. Please send to [facility] in [place]. Contact made with patient: Yes Patient identified by name and . Discussed care with patient Hi my name is Vera Mota, NETWORK NAVIGATOR and I am callin g from the [facility] on behalf of your PCP, FEDERICO Alatorre Because of the Covid-19 outbreak, I am calling to help make sure you ar e feeling well and that you have what you need to manage your well-being, s marisol it is so important to stay home and take social distancing seriously to help protect your health at this time. If you have any health con cerns, we will come up with a plan on how to proceed. SYMPTOMS: I'd like to ask some question about how you are managing you r health. Would that be OK? Yes Do you have any new or worsening symptoms that you'd like to discuss with a provider? No symptoms - Continue outreach/phone call ACTION TAKEN: No Symptoms - Continue phone call MEDICATIONS: Do you have any questions about taking your medication or wh ich medications you should be on? No Do you need any medication refills at this time, including a ny of the medications you might take only when needed? Yes ACTION TAKEN: Patient needs refill(s) - Routed to PCP, indicated the medic ations and preferred pharmacy in the FYI box. SOCIAL: We would like to make sure you have what you need so that yo ur basics needs are met - including your personal safety, food, housin g and medications. Would you like to speak with a social work steam conditioner operator to help give you support for any of these needs? No It can be normal to feel anxious or down during a time like this. Would you like to talk to a mental health professional about how y ou have been feeling? No ACTION TAKEN: No action taken Thank you for taking the time to talk with me today. We want to work with you to ensure that we are keeping your medical conditions we ll-controlled and to keep you healthy and out of the doctor's office or ho spital. Our team would like to stay connected with you to make sure you are feeling well. Our calls should take 10 minutes or less, and we'll pl an to call you weekly for the next few weeks to months while this outbreak continues to help make sure you stay well. Remember in the meantime, if y ou have concerns in between our calls, please call your PCP's office right away. Thank you. At present, these are our recommendations regarding the radha navirus (COVID-19) outbreak: ? Avoid public places as much as possible. ? Avoid close contact (within 6 feet) with others you don't live with, especially if they are sick. ? Stay home if you are sick. ? Wash your hands regularly for at least 20 seconds with soa p and water. ? Wear a cloth mask in public places to help reduce communit y spread. ? Do not go to your Doctor's office unless instructed to do so. For any non-emergency symptoms, call your Doctor's office to get ins tructions on how to manage (we might recommend a telephone or virtual vis it). For emergency symptoms, proceed to Emergency Department as usual but inform them of cough and fever symptoms BRITTANIE if present (or call on the way if possible). Enter next patient outreach date for the following week on t he same day of the week as today in the Track Pt Outreach section. cnptoutreach on CNPTOUTREACH Patient Outreach ([facility]) Normal 0 07-29-2019 [place] [facility] LOVELY DEVI ([id number]) 1945 [place] Date Time Provider Department ([id number]) 07/29/19 VERA MOTA (NETWORK NAVIGATOR)FAMPWS During your visit today, we recorded the following informati on about you: RIKY High NAVIGATOR 07/29/2019 3:10 PM Signed HIGH RISK CHRONIC DISEASE MONITORING Provider Action/FYI: Dr. Valdez- pt needs refill of Lasix 40 mg. Please send to [facility] in [place]. Contact made with patient: Yes Patient identified by name and . Discussed care with patient Hi my name is Vera DuncanRIKY mathew NAVIGATOR and I am callin g from the [facility] on behalf of your PCP, Morgan Valdez III MD Because of the Covid-19 outbreak, I am call ing to help make sure you are feeling well and that you have what you need to manage your well-being , since it is so important to stay home and take social distancing seriously t o help protect your health at this time. If you have any health concer ns, we will come up with a plan on how to proceed. SYMPTOMS: I'd like to ask some question about how you are managing y our health. Would that be OK? Yes Do you have any new or worsening symptoms that you'd like to discuss with a provider? No symptoms - Continue outreach/phone call ACTION TAKEN: No Symptoms - Continue phone call MEDICATIONS: Do you have any questions ab out taking your medication or which medications you should be on? No Do you need any medication refills at this time, including a ny of the medications you might take only when needed? Yes ACTION TAKEN: Patient needs refill(s) - Routed to PCP, indicated the medic ations and preferred pharmacy in the FYI box. SOCIAL: We would like to make sure y ou have what you need so that your basics needs are met - including your personal safety, fo od, housing and medications. Would you like to speak with a social work steam conditioner operator to help give you support for any of these needs? No It can be normal to feel anxious or down during a time lik e this. Would you like to talk to a mental health professional abo ut how you have been feeling? No ACTION TAKEN: No action taken Thank you for taking the time to talk with me to day. We want to work with you to ensure that we are keeping your medical conditions well-controlled and to keep you healthy and out of the doctor's office or [facility] Our team would like to stay connected with you to make sure you are f eeling well. Our calls should take 10 minutes or less, and we'l l plan to call you weekly for the next few weeks to months while this outbreak continues to h elp make sure you stay well. Remember in the meantime, if you have concerns in rl huertan our calls, please call your PCP's office right away. Thank you. At present, these are our recommendation s regarding the coronavirus (COVID-19) outbreak: ? Avoid public places as much as possible. ? Avoid close contact (within 6 feet) with others you don't live with, especially if they are sick. ? Stay home if you are sick. ? Wash your hands regularly for at least 20 seconds with soa p and water. ? Wear a cloth mask in public places to help reduce communit y spread. ? Do not go to your Doctor's office unless instructed to do so. For any non-emergency symptoms, call your Doctor's office to get instructions on how to manage (we might recommend a telephone or virtual visit). Fo r emergency symptoms, proceed to Emergen cy Department as usual but inform them of cough and fever symptoms BRITTANIE if present (or call on the way if possib le). Enter next patient outreach date for the following week on the same day of the week as today in the Track Pt Outreach section. Allergies As of Date: 07/29/2019 Noted Allergy Reaction MORPHINE 02/28/2005 ROCEPHIN (CEFTRIAXONE SODIUM) 06/20/2014 14 - Other: See Com ments Comments: Hot flashes; redness to skin Date Reviewed: 04/28/2019 Reviewed by: [place] ([facility]) JAZZY Carpenter - Fully Assessed Reason for Visit: Community Monitoring Outreach [Other] Cmt: Week 2 Prescriptions as of 07/29/2019 Sig: INSULIN SYRINGE U-100 WITH NE* 1 Each five times daily. LISINOPRIL 20 MG TABLET Take 1 tablet by mouth once d* WARFARIN 3 MG TABLET 3 mg every Mon, Wed, Fri; 6 m* FUROSEMIDE 40 MG TABLET Take 1 tablet by mouth twice * ERGOCALCIFEROL (VITAMIN D2) 1* Take 1 capsule by mouth one t * TRAZODONE 50 MG TABLET Take 1 tablet by mouth daily * ROPINIROLE 0.5 MG TABLET Take 1 tablet by mouth daily * INSULIN LISPRO (U-100) 100 UN* 18 units with breakfast, 17 u * BIPAP Initiate BiPAP @ 24/18 cm of * FLASH GLUCOSE SENSOR KIT 1 Each four times daily. INSULIN NPH ISOPHANE U-100 HU* 32 units subcutaneous once da * CLOPIDOGREL 75 MG TABLET Take 1 tablet by mouth once d* BACK BRACE 1 Device once daily as needed* AMIODARONE 200 MG TABLET Take 1 tablet by mouth once d* SPIRONOLACTONE 25 MG TABLET Take 1 tablet by mouth once d* AMLODIPINE 10 MG TABLET Take 0.5 tablets by mouth onc* CARVEDILOL 3.125 MG TABLET Take 1 tablet by mouth twice * ISOSORBIDE MONONITRATE ER 30 * Take 1 tablet by mouth once d * BLOOD SUGAR DIAGNOSTIC STRIPS Use as instructed to check bl* RANOLAZINE ER 1,000 MG TABLET* Take 1 tablet by mouth twice * FENOFIBRATE NANOCRYSTALLIZED * Take 1 tablet by mouth once d * PANTOPRAZOLE 40 MG TABLET,DEL* Take 40 mg by mouth once ajay * LANCETS Use with Onetouch Glucometer * ASPIRIN 81 MG TABLET Take 1 tablet by mouth once d* CRESTOR 40 MG TABLET Take one(1) tablet daily. 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/2007 Type 2 diabetes mellitus, uncontrolled (HCC) [E*02/16/2008 1 04/21/2014 ESOPHAGEAL REFLUX [K21.9] 03/06/2008 Benign Neoplasm of Colon [D12.6] 02/21/2009 Labyrinthitis [H83.09] 02/05/2010 06/07/2014 Dermatophytosis of nail [B35.1] 06/05/2011 Atrial fibrillation [I48.91] 07/03/2011 Anticoagulated on Coumadin [Z79.01] 07/03/2011 Chronic diarrhea [K52.9] 09/16/2011 06/07/2014 Class 2 severe obesity due to excess calories w*09/16/2011 Stasis dermatitis of both legs [I87.2] 04/05/2013 Foot callus [L84] 10/04/2014 Subsequent non-ST elevation (NSTEMI) myocardial*12/25/2014 Syncope [R55] 02/19/2015 Hyperlipidemia LDL goal <100 [E78.5] 02/19/2015 ASHD (arteriosclerotic heart disease) [I25.10] 02/19/2015 Neurocardiogenic syncope [R55] 03/01/2015 Dysphagia [R13.10] 03/01/2015 Eptit's esophagus with esophagitis [K22.70, K*03/01/2015 Bilateral carotid bruits [R09.89] 05/04/2016 Type 2 diabetes mellitus with stage 3 chronic k*06/15/2017 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 Balanitis [N48.1] 11/16/2016 Coronary angioplasty status [Z98.61] 11/16/2016 Elevated troponin I level [R79.89] 01/29/2013 More... Family history of cerebrovascular accident (CVA*01/26/2018 History of deep venous thrombosis [Z86.718] 01/26/2018 History of non-ST elevation myocardial infarcti*01/26/2018 Ischemic cardiomyopathy [I25.5] 11/20/2017 Leukocytosis [D72.829] 01/29/2013 More... JESSICA (obstructive sleep apnea) [G47.33] 07/26/2018 RLS (restless legs syndrome) [G25.81] 07/28/2018 Localized swelling, mass and lump, neck [R22.1] 07/28/2018 Acute on chronic systolic congestive heart fail*12/17/2018 Encounter Status:Closed by NAKUL NETWORK ULISESATORVERA on 07/29/19 elban on 2019-07-27 ELBAN Telephone ([facility]) Normal 07-27-2019 [facility] LOVELY DEVI ([id number]) 1945 [place] Date Time Provider Department () 07/27/19 BLOSSOM (PHARMACIST)BRIJESH During your visit today, we recorded the following informati on about you: JOLEEN CERRATO PHARMACIST 07/27/2019 11:08 AM Signed adflyer message sent for INR at [facility]. Joleen Cerrato PharmD Allergies As of Date: 07/27/2019 Noted Allergy Reaction MORPHINE 02/28/2005 ROCEPHIN (CEFTRIAXONE SODIUM) 06/20/2014 14 - Other: See Com ments Comments: Hot flashes; redness to skin Date Reviewed: 04/28/2019 Reviewed by: Lin[place] ([facility]) JAZZY Carpenter - Fully Assessed Reason for Visit: Anticoagulation Telephone Fu [148] Cmt: Home INR result Primary Visit Diagnosis:Anticoagulated on Coumadin [Z79.01] Other Visit Diagnosis:Paroxysmal atrial fibrillation (HCC) [ I48.0] Prescriptions as of 07/27/2019 Sig: INSULIN SYRINGE U-100 WITH NE* 1 Each five times daily. LISINOPRIL 20 MG TABLET Take 1 tablet by mouth once d* WARFARIN 3 MG TABLET 3 mg every Mon, Wed, Fri; 6 m* FUROSEMIDE 40 MG TABLET Take 1 tablet by mouth twice * ERGOCALCIFEROL (VITAMIN D2) 1* Take 1 capsule by mouth one t * TRAZODONE 50 MG TABLET Take 1 tablet by mouth daily * ROPINIROLE 0.5 MG TABLET Take 1 tablet by mouth daily * INSULIN LISPRO (U-100) 100 UN* 18 units with breakfast, 17 u * BIPAP Initiate BiPAP @ 24/18 cm of * FLASH GLUCOSE SENSOR KIT 1 Each four times daily. INSULIN NPH ISOPHANE U-100 HU* 32 units subcutaneous once da * CLOPIDOGREL 75 MG TABLET Take 1 tablet by mouth once d* BACK BRACE 1 Device once daily as needed* AMIODARONE 200 MG TABLET Take 1 tablet by mouth once d* SPIRONOLACTONE 25 MG TABLET Take 1 tablet by mouth once d* AMLODIPINE 10 MG TABLET Take 0.5 tablets by mouth onc* CARVEDILOL 3.125 MG TABLET Take 1 tablet by mouth twice * ISOSORBIDE MONONITRATE ER 30 * Take 1 tablet by mouth once d * BLOOD SUGAR DIAGNOSTIC STRIPS Use as instructed to check bl* RANOLAZINE ER 1,000 MG TABLET* Take 1 tablet by mouth twice * FENOFIBRATE NANOCRYSTALLIZED * Take 1 tablet by mouth once d * PANTOPRAZOLE 40 MG TABLET,DEL* Take 40 mg by mouth once ajay * LANCETS Use with Onetouch Glucometer * ASPIRIN 81 MG TABLET Take 1 tablet by mouth once d* CRESTOR 40 MG TABLET Take one(1) tablet daily. 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.6] 02/21/2009 Labyrinthitis [H83.09] 02/05/2010 06/07/2014 Dermatophytosis of nail [B35.1] 06/05/2011 Atrial fibrillation [I48.91] 07/03/2011 Anticoagulated on Coumadin [Z79.01] 07/03/2011 Chronic diarrhea [K52.9] 09/16/2011 06/07/2014 Class 2 severe obesity due to excess calories w*09/16/2011 Stasis dermatitis of both legs [I87.2] 04/05/2013 Foot callus [L84] 10/04/2014 Subsequent non-ST elevation (NSTEMI) myocardial*12/25/2014 Syncope [R55] 02/19/2015 Hyperlipidemia LDL goal <100 [E78.5] 02/19/2015 ASHD (arteriosclerotic heart disease) [I25.10] 02/19/2015 Neurocardiogenic syncope [R55] 03/01/2015 Dysphagia [R13.10] 03/01/2015 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 Balanitis [N48.1] 11/16/2016 Coronary angioplasty status [Z98.61] 11/16/2016 Elevated troponin I level [R79.89] 01/29/2013 More... Family history of cerebrovascular accident (CVA*01/26/2018 History of deep venous thrombosis [Z86.718] 01/26/2018 History of non-ST elevation myocardial infarcti*01/26/2018 Ischemic cardiomyopathy [I25.5] 11/20/2017 Leukocytosis [D72.829] 01/29/2013 More... JESSICA (obstructive sleep apnea) [G47.33] 07/26/2018 RLS (restless legs syndrome) [G25.81] 07/28/2018 Localized swelling, mass and lump, neck [R22.1] 07/28/2018 Acute on chronic systolic congestive heart fail*12/17/2018 Encounter Status:Closed by BLOSSOM (PHARMACIST)JOLEEN on progress on 2019-06 PROGRESS HNO ID: [id number] Normal 07-21-2019 [facility] Author: Becky Garibay [facility] ([id number]) Service: ? Author Type: ? Type: Progress Notes Filed: 07/21/2019 3:21 PM Note Text: HIGH RISK CHRONIC DISEASE MONITORING Provider Action/FYI: Patient states no concerns Contact made with patient: Yes Patient identified by name and . Discussed care with patient Hi my name is Becky Garibay [facility] and I am calling from [facility] on behalf of your PCP, Morgan Valdez III MD Because of the Covid-19 outbreak, I am calling to help make sure you are fe eling well and that you have what you need to manage your well-being, since it is so important to stay home and take social distancing seriously to help protect your health at this time. If you have any health con cerns, we will come up with a plan on how to proceed. SYMPTOMS: I'd like to ask some question about how you are managing you r health. Would that be OK? Yes Do you have any new or worsening symptoms that you'd like to discuss with your doctor? No ACTION TAKEN: No action required - No symptoms reported. MEDICATIONS: Do you have any questions about taking your medication or wh ich medications you should be on? No Do you need any medication refills at this time, including a ny of the medications you might take only when needed? No ACTION TAKEN: No action required SOCIAL: We would like to make sure you have what you need so that yo ur basics needs are met - including your personal safety, food, housin g and medications. Would you like to speak with a social work steam conditioner operator to help give you support for any of these needs? No It can be normal to feel anxious or down during a time like this. Would you like to talk to a mental health professional about how y ou have been feeling? No ACTION TAKEN: No action taken Thank you for taking the time to talk with me today. We want to work with you to ensure that we are keeping your medical conditions we ll-controlled and to keep you healthy and out of the doctor's office [facility] Our team would like to stay connected with you to make sure you are feeling well. Our calls should take 10 minutes or less, and we'll pl an to call you weekly for the next few weeks to months while this outbreak continues to help make sure you stay well. Remember in the meantime, if y ou have concerns in between our calls, please call your PCP's office right away. Thank you. At present, these are our recommendations regarding the radha navirus (COVID-19) outbreak: ? Avoid public places as much as possible. ? Avoid close contact (within 6 feet) with others you don't live with, especially if they are sick. ? Stay home if you are sick. ? Wash your hands regularly for at least 20 seconds with soa p and water. ? Wear a cloth mask in public places to help reduce communit y spread. ? Do not go to your Doctor's office unless instructed to do so. For any non-emergency symptoms, call your Doctor's office to get ins tructions on how to manage (we might recommend a telephone or virtual vis it). For emergency symptoms, proceed to Emergency Department as usual but inform them of cough and fever symptoms BRITTANIE if present (or call on the way if possible). Enter next patient outreach date for the following week on t he same day of the week as today in the Track Pt Outreach section. cnptoutreach on CNPTOUTREACH Patient Outreach (FAMPWS) Normal 0 07-21-2019 [facility] LOVELY DEVI ([id number]) 1945 [facility] Date Time Provider Department ([id number]) 07/21/19 MORGAN VALDEZ III During your visit today, we recorded the following informati on about you: Becky Garibay Pss 07/21/2019 3:21 PM Signed HIGH RISK CHRONIC DISEASE MONITORING Provider Action/FYI: Patient states no concerns Contact made with patient: Yes Patient identified by name and . Discussed care with patient Hi my name is Becky Garibay Pss and I am calling from the [facility] on behalf of your PCP, Morgan Valdez II I MD Because of the Covid-19 outbreak, I am calling to help make sure you are f eeling well and that you have what you need to manage your well-being, since it is so important to stay home and take social distancing seriously to help protect your healt h at this time. If you have any health concerns, we will come up with a plan on how to proceed. SYMPTOMS: I'd like to ask some question about how you are managing y our health. Would that be OK? Yes Do you have any new or worsening symptom s that you'd like to discuss with your doctor? No ACTION TAKEN: No action required - No symptoms reported. MEDICATIONS: Do you have any questions ab out taking your medication or which medications you should be on? No Do you need any medication refills at this time, including a ny of the medications you might take only when needed? No ACTION TAKEN: No action required SOCIAL: We would like to make sure y ou have what you need so that your basics needs are met - including your personal safety, fo od, housing and medications. Would you like to speak with a social work steam conditioner operator to help give you support for any of these needs? No It can be normal to feel anxious or down during a time lik e this. Would you like to talk to a mental health professional abo ut how you have been feeling? No ACTION TAKEN: No action taken Thank you for taking the time to talk with me to day. We want to work with you to ensure that we are keeping your medical conditions well-controlled and to keep you healthy and out of the doctor's office or [facility]. Our team would like to stay connected with you to make sure you are f eeling well. Our calls should take 10 minutes or less, and we'l l plan to call you weekly for the next few weeks to months while this outbreak continues to h elp make sure you stay well. Remember in the meantime, if you have concerns in betw eeashwin our calls, please call your PCP's office right away. Thank you. At present, these are our recommendation s regarding the coronavirus (COVID-19) outbreak: ? Avoid public places as much as possible. ? Avoid close contact (within 6 feet) with others you don't live with, especially if they are sick. ? Stay home if you are sick. ? Wash your hands regularly for at least 20 seconds with soa p and water. ? Wear a cloth mask in public places to help reduce communit y spread. ? Do not go to your Doctor's office unless instructed to do so. For any non-emergency symptoms, call your Doctor's office to get instructions on how to manage (we might recommend a telephone or virtual visit). Fo r emergency symptoms, proceed to Emergen cy Department as usual but inform them of cough and fever symptoms BRITTANIE if present (or call on the way if ghazal glass). Enter next patient outreach date for the following week on the same day of the week as today in the Track Pt Outreach section. Allergies As of Date: 07/21/2019 Noted Allergy Reaction MORPHINE 02/28/2005 ROCEPHIN (CEFTRIAXONE SODIUM) 06/20/2014 14 - Other: See Com ments Comments: Hot flashes; redness to skin Date Reviewed: 04/28/2019 Reviewed by: Lin[place] ([facility]) JAZZY Carpenter - Fully Assessed Reason for Visit: community monitoring outreach [Other] Cmt: week 1 Prescriptions as of 07/21/2019 Sig: INSULIN SYRINGE U-100 WITH NE* 1 Each five times daily. LISINOPRIL 20 MG TABLET Take 1 tablet by mouth once d* WARFARIN 3 MG TABLET 3 mg every Mon, Wed, Fri; 6 m* FUROSEMIDE 40 MG TABLET Take 1 tablet by mouth twice * ERGOCALCIFEROL (VITAMIN D2) 1* Take 1 capsule by mouth one t * TRAZODONE 50 MG TABLET Take 1 tablet by mouth daily * ROPINIROLE 0.5 MG TABLET Take 1 tablet by mouth daily * INSULIN LISPRO (U-100) 100 UN* 18 units with breakfast, 17 u * BIPAP Initiate BiPAP @ 24/18 cm of * FLASH GLUCOSE SENSOR KIT 1 Each four times daily. INSULIN NPH ISOPHANE U-100 HU* 32 units subcutaneous once da * CLOPIDOGREL 75 MG TABLET Take 1 tablet by mouth once d* BACK BRACE 1 Device once daily as needed* AMIODARONE 200 MG TABLET Take 1 tablet by mouth once d* SPIRONOLACTONE 25 MG TABLET Take 1 tablet by mouth once d* AMLODIPINE 10 MG TABLET Take 0.5 tablets by mouth onc* CARVEDILOL 3.125 MG TABLET Take 1 tablet by mouth twice * ISOSORBIDE MONONITRATE ER 30 * Take 1 tablet by mouth once d * BLOOD SUGAR DIAGNOSTIC STRIPS Use as instructed to check bl* RANOLAZINE ER 1,000 MG TABLET* Take 1 tablet by mouth twice * FENOFIBRATE NANOCRYSTALLIZED * Take 1 tablet by mouth once d * PANTOPRAZOLE 40 MG TABLET,DEL* Take 40 mg by mouth once ajay * LANCETS Use with OneAvangate BVuch Glucometer * ASPIRIN 81 MG TABLET Take 1 tablet by mouth once d* CRESTOR 40 MG TABLET Take one(1) tablet daily. 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*09/16/2007 Type 2 diabetes mellitus, uncontrolled (HCC) [E*02/16/2008 1 04/21/2014 ESOPHAGEAL REFLUX [K21.9] 03/06/2008 Benign Neoplasm of Colon [D12.6] 02/21/2009 Labyrinthitis [H83.09] 02/05/2010 06/07/2014 Dermatophytosis of nail [B35.1] 06/05/2011 Atrial fibrillation [I48.91] 07/03/2011 Anticoagulated on Coumadin [Z79.01] 07/03/2011 Chronic diarrhea [K52.9] 09/16/2011 06/07/2014 Class 2 severe obesity due to excess calories w*09/16/2011 Stasis dermatitis of both legs [I87.2] 04/05/2013 Foot callus [L84] 10/04/2014 Subsequent non-ST elevation (NSTEMI) myocardial*12/25/2014 Syncope [R55] 02/19/2015 Hyperlipidemia LDL goal <100 [E78.5] 02/19/2015 ASHD (arteriosclerotic heart disease) [I25.10] 02/19/2015 Neurocardiogenic syncope [R55] 03/01/2015 Dysphagia [R13.10] 03/01/2015 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 Balanitis [N48.1] 11/16/2016 Coronary angioplasty status [Z98.61] 11/16/2016 Elevated troponin I level [R79.89] 01/29/2013 More... Family history of cerebrovascular accident (CVA*01/26/2018 History of deep venous thrombosis [Z86.718] 01/26/2018 History of non-ST elevation myocardial infarcti*01/26/2018 Ischemic cardiomyopathy [I25.5] 11/20/2017 Leukocytosis [D72.829] 01/29/2013 More... JESSICA (obstructive sleep apnea) [G47.33] 07/26/2018 RLS (restless legs syndrome) [G25.81] 07/28/2018 Localized swelling, mass and lump, neck [R22.1] 07/28/2018 Acute on chronic systolic congestive heart fail*12/17/2018 Encounter Status:Closed by BECKY HARDING on 07/21/19 obsolete on 2019-06 OBSOLETE Refill (FAMPWS) Normal 07-18-2019 [facility] LOVELY DEVI ([id number]) [address] [facility] Time Provider Department ([id number]) 07/18/19 MORGAN VALDEZ III FAMPWS During your visit today, we recorded the following informati on about you: Cindi Eastman LPN 07/19/2019 8:02 AM Signed Patient has been identified by name and date of : Yes Patient phones for refill(s): Pending Prescriptions Disp Refills INSULIN SYRINGE U-100 WITH NEEDLE 1 ML 31 GAUGE X 5/16 270 1 Si Each three times daily. ZBIGNIEW: No Date of last office visit in primary care: 04/28/19 next apt 10/27/19 Last 2 Encounter Wt Readings: Date: Wt: 04/28/2019 119.7 kg (264 lb) 04/05/2019 121.3 kg (267 lb 6.4 oz) Previous labs/tests for medication: Diabetes: Hemoglobin A1C (%) Date Value 04/21/2019 6.8 01/14/2019 7.3 Please advise. Thank you. Cindi Garsia, MSN GUEST SERVICES AGENT.ROLL TESTER 07/19/2019 8:10 AM Signed The following approved medic ation requests have been transmitted electronically. Signed Prescriptions Disp Refills Insulin Syringe-Needle U-100 (BD ULTRAFINE INSULIN) 1 mL 31 gauge x 5/16 450 Each 3 Si Each five times daily. ZBIGNIEW: No Authorizing Provider: DENIZ GARSIA, MSN GUEST SERVICES AGENT.ROLL TESTER Allergies As of Date: 07/18/2019 Noted Allergy Reaction MORPHINE 02/28/2005 ROCEPHIN (CEFTRIAXONE SODIUM) 06/20/2014 14 - Other: See Com ments Comments: Hot flashes; redness to skin Date Reviewed: 04/28/2019 Reviewed by: [place] ([facility]) JAZZY Carpenter - Fully Assessed Reason for Visit: Refill Request [94] Visit Diagnosis:Controlled type 2 diabet es mellitus without complication, with long-term current use of insulin (HCC) [E11.9, Z79.4] Order(s):Insulin Syringe-Needle U-100 (BD ULTRAFINE IN SULIN) 1 mL 31 gauge x 5161 Each five times daily.Disp: 450 EachRfl: 3 Prescriptions as of 07/18/2019 Sig: INSULIN SYRINGE U-100 WITH NE* 1 Each five times daily. WARFARIN 3 MG TABLET 3 mg every Mon, Wed, Fri; 6 m* FUROSEMIDE 40 MG TABLET Take 1 tablet by mouth twice * ERGOCALCIFEROL (VITAMIN D2) 1* Take 1 capsule by mouth one t * TRAZODONE 50 MG TABLET Take 1 tablet by mouth daily * ROPINIROLE 0.5 MG TABLET Take 1 tablet by mouth daily * INSULIN LISPRO (U-100) 100 UN* 18 units with breakfast, 17 u * X LISINOPRIL 20 MG TABLET Take 1 tablet by mouth once d* BIPAP Initiate BiPAP @ 24/18 cm of * FLASH GLUCOSE SENSOR KIT 1 Each four times daily. INSULIN NPH ISOPHANE U-100 HU* 32 units subcutaneous once da * CLOPIDOGREL 75 MG TABLET Take 1 tablet by mouth once d* BACK BRACE 1 Device once daily as needed* AMIODARONE 200 MG TABLET Take 1 tablet by mouth once d* SPIRONOLACTONE 25 MG TABLET Take 1 tablet by mouth once d* AMLODIPINE 10 MG TABLET Take 0.5 tablets by mouth onc* CARVEDILOL 3.125 MG TABLET Take 1 tablet by mouth twice * ISOSORBIDE MONONITRATE ER 30 * Take 1 tablet by mouth once d * BLOOD SUGAR DIAGNOSTIC STRIPS Use as instructed to check bl* RANOLAZINE ER 1,000 MG TABLET* Take 1 tablet by mouth twice * FENOFIBRATE NANOCRYSTALLIZED * Take 1 tablet by mouth once d * PANTOPRAZOLE 40 MG TABLET,DEL* Take 40 mg by mouth once ajay * LANCETS Use with Onetouch Glucometer * ASPIRIN 81 MG TABLET Take 1 tablet by mouth once d* CRESTOR 40 MG TABLET Take one(1) tablet daily. 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*09/16/2007 Type 2 diabetes mellitus, uncontrolled (HCC) [E*02/16/2008 1 04/21/2014 ESOPHAGEAL REFLUX [K21.9] 03/06/2008 Benign Neoplasm of Colon [D12.6] 02/21/2009 Labyrinthitis [H83.09] 02/05/2010 06/07/2014 Dermatophytosis of nail [B35.1] 06/05/2011 Atrial fibrillation [I48.91] 07/03/2011 Anticoagulated on Coumadin [Z79.01] 07/03/2011 Chronic diarrhea [K52.9] 09/16/2011 06/07/2014 Class 2 severe obesity due to excess calories w*09/16/2011 Stasis dermatitis of both legs [I87.2] 04/05/2013 Foot callus [L84] 10/04/2014 Subsequent non-ST elevation (NSTEMI) myocardial*12/25/2014 Syncope [R55] 02/19/2015 Hyperlipidemia LDL goal <100 [E78.5] 02/19/2015 ASHD (arteriosclerotic heart disease) [I25.10] 02/19/2015 Neurocardiogenic syncope [R55] 03/01/2015 Dysphagia [R13.10] 03/01/2015 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 Balanitis [N48.1] 11/16/2016 Coronary angioplasty status [Z98.61] 11/16/2016 Elevated troponin I level [R79.89] 01/29/2013 More... Family history of cerebrovascular accident (CVA*01/26/2018 History of deep venous thrombosis [Z86.718] 01/26/2018 History of non-ST elevation myocardial infarcti*01/26/2018 Ischemic cardiomyopathy [I25.5] 11/20/2017 Leukocytosis [D72.829] 01/29/2013 More... JESSICA (obstructive sleep apnea) [G47.33] 07/26/2018 RLS (restless legs syndrome) [G25.81] 07/28/2018 Localized swelling, mass and lump, neck [R22.1] 07/28/2018 Acute on chronic systolic congestive heart fail*12/17/2018 Prescriptions ordered this encounter Disp Refills Start End INSULIN SYRINGE U-100 WITH NEEDLE 1 * 450 * 3 07/19/2019 Route: Misc Si Each five times daily. Medications Discontinued During This Encounter Insulin Syringe-Needle U-100 (BD ULT* 270 * 3 02/22/201806/29 Route: Miscell. (Med.Supl.;Non-Drugs) Si Each three times daily. Disc: Reason for discontinue is not on file. Encounter Status:Closed by DENIZ GARSIA ROLL TESTER on 07/19/19 OBSOLETE Refill (FAMPWS) Normal 07-18-2019 [facility] LOVELY DEVI ([id number]) 1945 [facility] Date Time Provider Department ([id number]) 07/18/19 DENIZ GARSIAPWS During your visit today, we recorded the following informati on about you: Cindi Wing Raiza NARVAEZ 07/19/2019 8:03 AM Signed Patient has been identified by name and date of : Yes Patient phones for refill(s): Pending Prescriptions Disp Refills LISINOPRIL 20 MG TABLET 90 tablet 1 Sig: Take 1 tablet by mouth once daily. ZBIGNIEW: No Date of last office visit in primary care: 04/28/19 next 10/26 Last 2 Encounter Wt Readings: Date: Wt: 04/28/2019 119.7 kg (264 lb) 04/05/2019 121.3 kg (267 lb 6.4 oz) Previous labs/tests for medication: Blood Pressure: BUN (mg/dL) Date Value 04/21/2019 25 Sodium (mmol/L) Date Value 04/21/2019 138 Last 1 Encounter BP Readings: Date: BP: 04/28/2019 106/66 Please advise. Thank you. Cindi Thompsonashwin Eastman LPN Allergies As of Date: 07/18/2019 Noted Allergy Reaction MORPHINE 02/28/2005 ROCEPHIN (CEFTRIAXONE SODIUM) 06/20/2014 14 - Other: See Com ments Comments: Hot flashes; redness to skin Date Reviewed: 04/28/2019 Reviewed by: [place] ([facility]) JAZZY Carpenter - Fully Assessed Reason for Visit: Refill Request [94] Order(s):lisinopril (ZESTRIL, PRINIVIL) 20 mg tabletTake 1 t ablet by mouth once daily.Disp: 90 tabletRfl: 1 Prescriptions as of 07/18/2019 Sig: LISINOPRIL 20 MG TABLET Take 1 tablet by mouth once d* WARFARIN 3 MG TABLET 3 mg every Mon, Wed, Fri; 6 m* FUROSEMIDE 40 MG TABLET Take 1 tablet by mouth twice * ERGOCALCIFEROL (VITAMIN D2) 1* Take 1 capsule by mouth one t * TRAZODONE 50 MG TABLET Take 1 tablet by mouth daily * ROPINIROLE 0.5 MG TABLET Take 1 tablet by mouth daily * INSULIN LISPRO (U-100) 100 UN* 18 units with breakfast, 17 u * BIPAP Initiate BiPAP @ 24/18 cm of * FLASH GLUCOSE SENSOR KIT 1 Each four times daily. INSULIN NPH ISOPHANE U-100 HU* 32 units subcutaneous once da * CLOPIDOGREL 75 MG TABLET Take 1 tablet by mouth once d* INSULIN SYRINGE U-100 WITH NE* 1 Each three times daily. BACK BRACE 1 Device once daily as needed* AMIODARONE 200 MG TABLET Take 1 tablet by mouth once d* SPIRONOLACTONE 25 MG TABLET Take 1 tablet by mouth once d* AMLODIPINE 10 MG TABLET Take 0.5 tablets by mouth onc* CARVEDILOL 3.125 MG TABLET Take 1 tablet by mouth twice * ISOSORBIDE MONONITRATE ER 30 * Take 1 tablet by mouth once d * BLOOD SUGAR DIAGNOSTIC STRIPS Use as instructed to check bl* RANOLAZINE ER 1,000 MG TABLET* Take 1 tablet by mouth twice * FENOFIBRATE NANOCRYSTALLIZED * Take 1 tablet by mouth once d * PANTOPRAZOLE 40 MG TABLET,DEL* Take 40 mg by mouth once ajay * LANCETS Use with [employer] Glucometer * ASPIRIN 81 MG TABLET Take 1 tablet by mouth once d* CRESTOR 40 MG TABLET Take one(1) tablet daily. 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*09/16/2007 Type 2 diabetes mellitus, uncontrolled (HCC) [E*02/16/2008 1 04/21/2014 ESOPHAGEAL REFLUX [K21.9] 03/06/2008 Benign Neoplasm of Colon [D12.6] 02/21/2009 Labyrinthitis [H83.09] 02/05/2010 06/07/2014 Dermatophytosis of nail [B35.1] 06/05/2011 Atrial fibrillation [I48.91] 07/03/2011 Anticoagulated on Coumadin [Z79.01] 07/03/2011 Chronic diarrhea [K52.9] 09/16/2011 06/07/2014 Class 2 severe obesity due to excess calories w*09/16/2011 Stasis dermatitis of both legs [I87.2] 04/05/2013 Foot callus [L84] 10/04/2014 Subsequent non-ST elevation (NSTEMI) myocardial*12/25/2014 Syncope [R55] 02/19/2015 Hyperlipidemia LDL goal <100 [E78.5] 02/19/2015 ASHD (arteriosclerotic heart disease) [I25.10] 02/19/2015 Neurocardiogenic syncope [R55] 03/01/2015 Dysphagia [R13.10] 03/01/2015 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 Balanitis [N48.1] 11/16/2016 Coronary angioplasty status [Z98.61] 11/16/2016 Elevated troponin I level [R79.89] 01/29/2013 More... Family history of cerebrovascular accident (CVA*01/26/2018 History of deep venous thrombosis [Z86.718] 01/26/2018 History of non-ST elevation myocardial infarcti*01/26/2018 Ischemic cardiomyopathy [I25.5] 11/20/2017 Leukocytosis [D72.829] 01/29/2013 More... JESSICA (obstructive sleep apnea) [G47.33] 07/26/2018 RLS (restless legs syndrome) [G25.81] 07/28/2018 Localized swelling, mass and lump, neck [R22.1] 07/28/2018 Acute on chronic systolic congestive heart fail*12/17/2018 Prescriptions ordered this encounter Disp Refills Start End LISINOPRIL 20 MG TABLET 90 t* 1 07/19/2019 Route: ORAL Sig: Take 1 tablet by mouth once daily. Medications Discontinued During This Encounter lisinopril (ZESTRIL, PRINIVIL) 20 mg* 90 t* 1 01/06/201906/29 Route: ORAL Sig: Take 1 tablet by mouth once daily. Disc: Reason for discontinue is not on file. Encounter Status:Closed by DENIZ GARSIA CNP on 07/19/19 cnpn on 2019-07-13 CNPN Telephone ([facility]) Normal 07-13-2019 [facility] LOVELY DEVI ([id number]) 1945 M [facility] Date Time Provider Department ([id number]) 07/13/19 BLOSSOM (PHARMACIST)BRIJESH During your visit today, we recorded the following informati on about you: ANSHUL SEBASTIAN 07/13/2019 4:48 PM Signed Patient was due to test INR today will continue to monitor f or results. Joleen Cerrato, PharmD Pharmacy Antico[facility] Allergies As of Date: 07/13/2019 Noted Allergy Reaction MORPHINE 02/28/2005 ROCEPHIN (CEFTRIAXONE SODIUM) 06/20/2014 14 - Other: See Com ments Comments: Hot flashes; redness to skin Date Reviewed: 04/28/2019 Reviewed by: Lin[place] ([facility]) JAZZY Carpenter - Fully Assessed Reason for Visit: Anticoagulation Telephone Fu [148] Cmt: home INR- MyCалександрt se rossi Primary Visit Diagnosis:Anticoagulated on Coumadin [Z79.01] Other Visit Diagnosis:Paroxysmal atrial fibrillation (HCC) [ I48.0] Prescriptions as of 07/13/2019 Sig: WARFARIN 3 MG TABLET 3 mg every Mon, Wed, Fri; 6 m* FUROSEMIDE 40 MG TABLET Take 1 tablet by mouth twice * ERGOCALCIFEROL (VITAMIN D2) 1* Take 1 capsule by mouth one t * TRAZODONE 50 MG TABLET Take 1 tablet by mouth daily * ROPINIROLE 0.5 MG TABLET Take 1 tablet by mouth daily * INSULIN LISPRO (U-100) 100 UN* 18 units with breakfast, 17 u * LISINOPRIL 20 MG TABLET Take 1 tablet by mouth once d* BIPAP Initiate BiPAP @ 24/18 cm of * FLASH GLUCOSE SENSOR KIT 1 Each four times daily. INSULIN NPH ISOPHANE U-100 HU* 32 units subcutaneous once da * CLOPIDOGREL 75 MG TABLET Take 1 tablet by mouth once d* INSULIN SYRINGE U-100 WITH NE* 1 Each three times daily. BACK BRACE 1 Device once daily as needed* AMIODARONE 200 MG TABLET Take 1 tablet by mouth once d* SPIRONOLACTONE 25 MG TABLET Take 1 tablet by mouth once d* AMLODIPINE 10 MG TABLET Take 0.5 tablets by mouth onc* CARVEDILOL 3.125 MG TABLET Take 1 tablet by mouth twice * ISOSORBIDE MONONITRATE ER 30 * Take 1 tablet by mouth once d * BLOOD SUGAR DIAGNOSTIC STRIPS Use as instructed to check bl* RANOLAZINE ER 1,000 MG TABLET* Take 1 tablet by mouth twice * FENOFIBRATE NANOCRYSTALLIZED * Take 1 tablet by mouth once d * PANTOPRAZOLE 40 MG TABLET,DEL* Take 40 mg by mouth once ajay * LANCETS Use with [employer] Glucometer * ASPIRIN 81 MG TABLET Take 1 tablet by mouth once d* CRESTOR 40 MG TABLET Take one(1) tablet daily. 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*09/16/2007 Type 2 diabetes mellitus, uncontrolled (HCC) [E*02/16/2008 1 04/21/2014 ESOPHAGEAL REFLUX [K21.9] 03/06/2008 Benign Neoplasm of Colon [D12.6] 02/21/2009 Labyrinthitis [H83.09] 02/05/2010 06/07/2014 Dermatophytosis of nail [B35.1] 06/05/2011 Atrial fibrillation [I48.91] 07/03/2011 Anticoagulated on Coumadin [Z79.01] 07/03/2011 Chronic diarrhea [K52.9] 09/16/2011 06/07/2014 Class 2 severe obesity due to excess calories w*09/16/2011 Stasis dermatitis of both legs [I87.2] 04/05/2013 Foot callus [L84] 10/04/2014 Subsequent non-ST elevation (NSTEMI) myocardial*12/25/2014 Syncope [R55] 02/19/2015 Hyperlipidemia LDL goal <100 [E78.5] 02/19/2015 ASHD (arteriosclerotic heart disease) [I25.10] 02/19/2015 Neurocardiogenic syncope [R55] 03/01/2015 Dysphagia [R13.10] 03/01/2015 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 Balanitis [N48.1] 11/16/2016 Coronary angioplasty status [Z98.61] 11/16/2016 Elevated troponin I level [R79.89] 01/29/2013 More... Family history of cerebrovascular accident (CVA*01/26/2018 History of deep venous thrombosis [Z86.718] 01/26/2018 History of non-ST elevation myocardial infarcti*01/26/2018 Ischemic cardiomyopathy [I25.5] 11/20/2017 Leukocytosis [D72.829] 01/29/2013 More... JESSICA (obstructive sleep apnea) [G47.33] 07/26/2018 RLS (restless legs syndrome) [G25.81] 07/28/2018 Localized swelling, mass and lump, neck [R22.1] 07/28/2018 Acute on chronic systolic congestive heart fail*12/17/2018 Encounter Status:Closed by LIZETTE (PHARMACIST)PRIYANKA on progress on 2019-06 PROGRESS HNO ID: [id number] Normal 06-30-2019 [facility] Author: Deniz Amado ([id number]) Service: ? Author Type: Nurse Practitioner Type: Progress Notes Filed: 07/01/2019 11:35 AM Note Text: Noted. Deniz Garsia, MSN GUEST SERVICES AGENT.ROLL TESTER progress on 2019-06 PROGRESS HNO ID: [id number] Normal 06-29-2019 [facility] Author: Jeffy Fontenot (Rn) Clinic Service: ? [facility] Author Type: Registered Nurse ([id number]) Type: Progress Notes Filed: 07/01/2019 11:35 AM Note Text: PRIMARY CARE COORDINATION QUICK NOTE Provider Action/FYI 06/29/19 Call to Pt left a vm to check on health status, needs . 06/29/19 Call from Pt who denies CP at rest, reports CP on and off unchanged, has Nitoglycerin, reinforced how to take it and i f not effective to call 911. Emotional support given, discussed PC P/Cardiology available for needs or concerns. Pt appreciated extra reassu fozia during these times. Pt denies bleeding from any site, feeling Palpitations, dizz iness, or feeling lightheadedness Pt reports chronic Sob unchanged, denies fever, or cough or signs of illness. Aware of need to wash hands, not touch face, practi ce social distancing Pt reports Average FBS past week is 138, BP 127/80 Pt has adequate medications, denies current needs or concern s Pt reports will f/u with [facility] Cardiology is 6 mths ( Please s ee #6 below: his recent ICD evaluation showed 1 nonsustained VT episode) [facility] 05/30/19 Cardiology Appt with Francis Kwok NP [facility] 06/08/19 ICD Pacemaker Interrogation completed 05/30/19 OV Francis Kwok NP / [facility] Addendum Excerpt noted: Assessment AND Plan 1. 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 At this time, his chest pain appears stable. We will continu e to hold amlodipine as mentioned previously at last office visit. He was asked to contact our office that if his chest pain worsens to conside r medication adjustment or reevaluation. Patient denies arm pain, jaw pain, neck pain, or fatigue sug gestive of angina at this time. We will continue to monitor this. We wi ll not make any medication regimen changes and will continue risk factor modification. 2. History of coronary artery stent placement Z95.5 [id number]; PCI-Cutting Balloon Angioplasty of ISR-ostium of prox OM1 11/22/02; PCI-stent to proximal OM1 01/2008; PCI- LEANNA-ISR -Prox OM1 w/ 2.5 x 12 mm Promus Premier 12/15/14 Plan He will continue current medical therapy. He will continue r isk factor and lifestyle modification. 3. Ischemic cardiomyopathy I25.5 Plan His stress echocardiogram November 2018 showed ejection fra ction of 45%. At this time, his shortness of breath has not worsened. Give n his chronic kidney disease, it was decided not to adjust diuretic at thi s time. If however his shortness of breath worsens, he was asked to con tact our office for temporary diuretic adjustment. He will continue with beta-jennyfer, NIYA inhibitor, and diure tic therapy. 4. History of implantable cardiac defibrillator (ICD) Z95.81 0 11/23/2002, Generator change 2017 Plan His most recent pacemaker/ICD evaluation from 03/02/2019 show ed 1 nonsustained VT episode consistent with monomorphic VT at 17 6 bpm for 20 beats, ventricular paced at 0%, and estimated battery life o f 12 years. Patient's pacemaker/ICD appears to be functioning appropriat jennifer. We will continue to monitor this with routine/scheduled follow-ups. 5. Paroxysmal atrial flutter I48.92 Plan This appears stable. His heart rate is well controlled. He w ill continue current medical therapy which includes Coreg 6.25 mg p.o. tw ice daily and Coumadin therapy. We will continue to monitor. Orders Orders: 12 Lead EKG performed by [facility] Today 6. Nonsustained ventricular tachycardia I47.2 Plan As noted above, his recent ICD evaluation showed 1 nonsustai jason VT episode. At this time, he will continue current beta-jennyfer . We will continue to monitor episodes via pacemaker clinic. We will a djust or add medications as necessary. 7. Hyperlipidemia, unspecified hyperlipidemia type E78.5 Plan He will continue current cholesterol/statin medication. Plan Detail Additional Comments Thank you for allowing us to participate in the patients leela n of care, if you have any questions please do not hesitate to call. This note was generated using a voice recognition system and there may be incorrect words, spelling or punctuation that were not noted when reviewing the office note prior to saving. Follow Up 2 Weeks (Funmilayo- Remote check) 6 Months (PRODUCTION TESTER) Patient identified by name and date . Corie Bardales RN June 29, 2019 12:10 PM Corie Bardales RN June 29, 2019 6:57 PM PROGRESS HNO ID: [id number] Normal 06-29-2019 [facility] Author: Jeffy Fontenot (Rn) Clinic Service: ? [facility] Author Type: Registered Nurse ([id number]) Type: Progress Notes Filed: 07/01/2019 11:35 AM Note Text: PRIMARY CARE COORDINATION DISCHARGE Patient has been identified by name and date of : Yes Patient discharged from Primary Care Coordination: YES Active Goals - Current status as of 06/29/2019 at 12:08 PM Most Recent Patient Stated - Feel better, more energy (pt-stated) Other - Address all appropriate HM and disease care gaps - Annual BMP - Annual foot exam - Annual microalbumin - Annual retina exam - Blood Pressure < 130/80 106/66 (04/28/2019) - Check weight daily Improving (12/22/2018) - Confirm medication adherence of all prescribed medications and uses them correctly Improving (12/22/2018) - Has a plan for unexpected weight gain On track (12/22/2018) - HBA1C drawn quarterly - Hemoglobin A1C < 7 6.8 (04/21/2019) - LDL at or below 100 mg/dL or on a high statin - Tobacco cessation - Understands and follows a low salt diet - Understands and follows DASH diet - Weight mgmt/activity Goals met Demonstrates engagement through active participation in self -care Patient has reliable caregiver, family and/or social support Clinical condition does not warrant further care coordinatio n Patient knowledgeable and confident in contacting Health Car e Providers for questions or concerns: YES Reinforced with patient and/or caregiver that Primary Care C oordination may be reinitiated if a change in status warrants navigation readmission: YES Discussed with: Patient What was the Focus/Challenges addressed in Care Coordination ? Education on Chronic Disease Management Care Gaps Resources Disposition: Follow up with PCP/ Cardiology Care Team Tab - End: YES DRAGAN Valenzuela on SAMREEN Patient Outreach (FAMPWS) Normal 0 06-29-2019 [facility] LOVELY DEVI ([id number]) 1945 [facility] Date Time Provider Department ([id number]) 06/29/19 JEFFY FONTENOT (RN) FAMPWS During your visit today, we recorded the following informati on about you: Corie Bardales RN 07/01/2019 11:35 AM Signed PRIMARY CARE COORDINATION DISCHARGE Patient has been identified by name and date of : Yes Patient discharged from Primary Care Coordination: YES Active Goals - Current status as of 06/29/2019 at 12:08 PM Most Recent Patient Stated - Feel better, more energy (pt-stated) Other - Address all appropriate HM and disease care gaps - Annual BMP - Annual foot exam - Annual microalbumin - Annual retina exam - Blood Pressure < 130/80 106/66 (04/28/2019) - Check weight daily Improving (12/22/2018) - Confirm medication adherence of all prescribed medications and uses them correctly Improving (12/22/2018) - Has a plan for unexpected weight gain On track (12/22/2018) - HBA1C drawn quarterly - Hemoglobin A1C < 7 6.8 (04/21/2019) - LDL at or below 100 mg/dL or on a high statin - Tobacco cessation - Understands and follows a low salt diet - Understands and follows DASH diet - Weight mgmt/activity Goals met Demonstrates engagement through active participation in self -care Patient has reliable caregiver, family and/or social support Clinical condition does not warrant further care coordinatio n Patient knowledgeable and confident in contacting Health C are Providers for questions or concerns: YES Reinforced with patient and/or caregiver that Primary Care Coordination may be reinitiated if a change in status warrants navigation marla lamon: YES Discussed with: Patient What was the Focus/Challenges addressed in Care Coordination ? Education on Chronic Disease Management Care Gaps Resources Disposition: Follow up with PCP/ Cardiology Care Team Tab - End: YES Corie Bardales, RN Corie Bardales, RN 07/01/2019 11:35 AM Signed PRIMARY CARE COORDINATION QUICK NOTE Provider Action/FYI 06/29/19 Call to Pt left a vm to check on health status, needs . 06/29/19 Call from Pt who gabi es CP at rest, reports CP on and off unchanged, has Nitoglycerin, reinforced how to take it and if not effective to call 911. Emotional support given, discussed PCP/Cardiology available for needs or concerns. Pt appreciated extra reassurance during these time s. Pt denies bleeding from any site, feeling Palpit ations, dizziness, or feeling lightheadedness Pt reports chronic Sob unchanged, denies fever, or cough or signs of illness. Aware of need to wash hands, not touch face, practice social distancing Pt reports Average FBS past week is 138, BP 127/80 Pt has adequate medications, denies current needs or concern s Pt reports will f/u with [facility] Cardiology is 6 mths ( Pl ease see #6 below: his recent ICD evaluation showed 1 nonsustained VT episode) - [facility] 05/30/19 Cardiology Appt with Francis Kwok NP [facility] 06/08/19 ICD Pacemaker Interrogation completed 05/30/19 OV Francis Kwok NP / [facility] Addendum Excerpt noted: Assessment AND Plan 1. Atherosclerotic heart disease of [place] coronary artery with other forms of angina pectoris I25.118 JWH-Dqptj-Pne Cx; PCI-Cutting Balloon Angioplasty of ISR-ost ium of prox lat CX 11/22/02; PCI-stent to proximal OM 01/2008; PCI- LEANNA-I SR-Prox OM 12/15/13;LHC w/FFR of LAD, D1, LCx 05/30/2016 Plan His stress echocardiogram in November 2018 showed ejection unction of 45% suggested to be a normal, adequate, dobu tamine to mean echocardiogram that was negative for ischemia by EKG and echocardiographic criteria. At this time, his chest pain appears stable. We will continu e to hold amlodipine as mentioned previously at last office visit. He was asked to contact our office that if his chest pain worsens to conside r medication adjustment or reevaluation. Patient denies arm pain, jaw pain, neck pain, or fatigue suggestive of angina at this time. We will continue to monitor this. We will not make any medication regimen changes and will continue risk factor mod ification. 2. History of coronary artery stent placement Z95.5 [id number]; PCI-Cutting Balloon Angioplasty of ISR-ostium of prox OM1 11/22/02; PCI-stent to proximal OM1 01/2008; PCI- JME-MTS-[place] OM1 w/ 2.5 x 12 mm Promus Premier 12/15/14 Plan He will continue current medical therapy. He will continue r isk factor and lifestyle modification. 3. Ischemic cardiomyopathy I25.5 Plan His stress echocardiogram November 2018 showed ejecti on fraction of 45%. At this time, his shortness of breath has not worse jason. Given his chronic kidney disease, it was decided not to adjust diuretic at this hi e. If however his shortness of breath worsens, he was asked to con tact our office for temporary diuretic adjustment. He will continue with beta-jennyfer, NIYA inhibitor, and diure tic therapy. 4. History of implantable cardiac defibrillator (ICD) Z95.81 0 11/23/2002, Generator change 2017 Plan His most recent pacemaker/ICD evaluation from showed 1 nonsustained VT episode consistent with monomorphic V T at 176 bpm for 20 beats, ventricular paced at 0%, and estimated battery life of 12 years. Patient's pacemaker/ICD appears to be functioning appropriat jennifer. We will continue to monitor this with routine/scheduled follow-ups. 5. Paroxysmal atrial flutter I48.92 Plan This appears stable. His heart rate is well controlled. He w ill continue current medical therapy which includes Coreg 6.25 mg p.o. tw ice daily and Coumadin therapy. We will continue to monitor. Orders Orders: 12 [place] [facility] 6. Nonsustained ventricular tachycardia I47.2 Plan As noted above, his recent ICD evaluatio n showed 1 nonsustained VT episode. At this time, he will continue current beta-jennyfer . We will continue to monitor episodes via pacemaker clinic. We will a djust or add medications as necessary. 7. Hyperlipidemia, unspecified hyperlipidemia type E78.5 Plan He will continue current cholesterol/statin medication. Plan Detail Additional Comments Thank you for allowing us to participate in the patients plan of care, if you have any questions please do not hesitate to call. This note was generated using a voice recognition system and there may be incorrect words, spelling or punctuation that were not noted when reviewing the office note prior to saving. Follow Up 2 Weeks (Funmilayo- Remote check) 6 Months (PRODUCTION TESTER) Patient identified by name and date . Corie Bardales RN June 29, 2019 12:10 PM Corie Bardales RN June 29, 2019 6:57 PM LEATHA Kebede GUEST SERVICES AGENT.ELBA 07/01/2019 11:35 AM Signed Noted. 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 INSULIN NPH ISOPHANE U-100 HU* 32 units subcutaneous once da * CLOPIDOGREL 75 MG TABLET Take 1 tablet by mouth once d* INSULIN SYRINGE U-100 WITH NE* 1 Each three times daily. BACK BRACE 1 Device once daily as needed* AMIODARONE 200 MG TABLET Take 1 tablet by mouth once d* SPIRONOLACTONE 25 MG TABLET Take 1 tablet by mouth once d* AMLODIPINE 10 MG TABLET Take 0.5 tablets by mouth onc* CARVEDILOL 3.125 MG TABLET Take 1 tablet by mouth twice * ISOSORBIDE MONONITRATE ER 30 * Take 1 tablet by mouth once d * BLOOD SUGAR DIAGNOSTIC STRIPS Use as instructed to check bl* RANOLAZINE ER 1,000 MG TABLET* Take 1 tablet by mouth twice * FENOFIBRATE NANOCRYSTALLIZED * Take 1 tablet by mouth once d * PANTOPRAZOLE 40 MG TABLET,DEL* Take 40 mg by mouth once ajay * LANCETS Use with [employer] Planuch Glucometer * ASPIRIN 81 MG TABLET Take 1 tablet by mouth once d* CRESTOR 40 MG TABLET Take one(1) tablet daily. 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/2007 Type 2 diabetes mellitus, uncontrolled (HCC) [E*02/16/2008 1 04/21/2014 ESOPHAGEAL REFLUX [K21.9] 03/06/2008 Benign Neoplasm of Colon [D12.6] 02/21/2009 Labyrinthitis [H83.09] 02/05/2010 06/07/2014 Dermatophytosis of nail [B35.1] 06/05/2011 Atrial fibrillation [I48.91] 07/03/2011 Anticoagulated on Coumadin [Z79.01] 07/03/2011 Chronic diarrhea [K52.9] 09/16/2011 06/07/2014 Class 2 severe obesity due to excess calories w*09/16/2011 Stasis dermatitis of both legs [I87.2] 04/05/2013 Foot callus [L84] 10/04/2014 Subsequent non-ST elevation (NSTEMI) myocardial*12/25/2014 Syncope [R55] 02/19/2015 Hyperlipidemia LDL goal <100 [E78.5] 02/19/2015 ASHD (arteriosclerotic heart disease) [I25.10] 02/19/2015 Neurocardiogenic syncope [R55] 03/01/2015 Dysphagia [R13.10] 03/01/2015 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 Balanitis [N48.1] 11/16/2016 Coronary angioplasty status [Z98.61] 11/16/2016 Elevated troponin I level [R79.89] 01/29/2013 More... Family history of cerebrovascular accident (CVA*01/26/2018 History of deep venous thrombosis [Z86.718] 01/26/2018 History of non-ST elevation myocardial infarcti*01/26/2018 Ischemic cardiomyopathy [I25.5] 11/20/2017 Leukocytosis [D72.829] 01/29/2013 More... JESSICA (obstructive sleep apnea) [G47.33] 07/26/2018 RLS (restless legs syndrome) [G25.81] 07/28/2018 Localized swelling, mass and lump, neck [R22.1] 07/28/2018 Acute on chronic systolic congestive heart fail*12/17/2018 Encounter Status:Closed by CORIE BARDALES on 07/01/19 cnpn on 2019-06-29 CNPN Telephone ([email or web address]) Normal 06-29-2019 [facility] LOVELY DEVI ([id number]) 1945 M [facility] Time Provider Department ([id number]) 06/29/19 BLOSSOM (PHARMACIST)SHARIF During your visit today, we recorded the following informati on about you: ANSHUL SEBASTIAN 06/29/2019 9:31 AM Signed [facility] Referring provider: No ref. provider found Lovely Devi is a 73 year old year old male patient being evaluated today for anticoagulation Telemanagement visit. Patient is currently on the following anticoagulant Warfarin Labs PT INR (no units) Date Value 11/26/2018 Test sent to [facility]. 10/16/2017 1.8 01/16/2017 Test sent to [facility]. INR (POCT) (no units) Date Value 02/21/2019 2.9 01/24/2019 2.9 01/17/2019 3.2 INR Home CoaguChek (no units) Date Value 06/29/2019 2.0 06/15/2019 1.8 06/01/2019 2.7 Hemoglobin (g/dL) Date Value 01/14/2019 12.0 Hematocrit (%) Date Value 01/14/2019 37.9 Platelet Count (k/uL) Date Value 01/14/2019 154 Creatinine (mg/dL) Date Value 04/21/2019 1.35 01/14/2019 1.24 12/17/2018 1.34 Bilirubin, Total (mg/dL) Date Value 04/21/2019 0.6 ALT (U/L) Date Value 04/21/2019 33 AST (U/L) Date Value 04/21/2019 36 CrCl cannot be calculated (Unknown ideal weight.). ALLERGIES Allergen Reactions - Morphine - Rocephin [Ceftriaxo* Other: See Comments Hot flashes; redness to skin Indication for Warfarin: Paroxysmal atrial fibrillation (hcc ) Anticoagulated on coumadin Goal INR Range: 2-3 Assessment: ? INR result of 2.0 is therapeutic on the low end. Plan: ? Advised patient to continue current weekly dose ? Next home INR check scheduled on 07/13/2019 ? Patient verbalizes understanding of the plan. ? He does not need a refill JOLEEN CERRATO, PHARMACIST Clinical Pharmacist, Pharmacy Anticoagulation Clinic Pharm[facility] Pager: [phone] Description Patient has 3 mg tablets of warfarin. Patient takes in the m orning. . Allergies As of Date: 06/29/2019 Noted Allergy Reaction MORPHINE 02/28/2005 ROCEPHIN (CEFTRIAXONE SODIUM) 06/20/2014 14 - Other: See Com ments Comments: Hot flashes; redness to skin Date Reviewed: 04/28/2019 Reviewed by: Lin[place] ([facility]) JAZZY Carpenter - Fully Assessed Reason for Visit: Anticoagulation Telephone Fu [[id number]] Cmt: Home INR results Primary Visit Diagnosis:Anticoagulated on Coumadin [Z79.01] Other Visit Diagnosis:Paroxysmal atrial fibrillation (HCC) [ I48.0] Prescriptions as of 06/29/2019 Sig: WARFARIN 3 MG TABLET 3 mg every Mon, Wed, Fri; 6 m* FUROSEMIDE 40 MG TABLET Take 1 tablet by mouth twice * ERGOCALCIFEROL (VITAMIN D2) 1* Take 1 capsule by mouth one t * TRAZODONE 50 MG TABLET Take 1 tablet by mouth daily * ROPINIROLE 0.5 MG TABLET Take 1 tablet by mouth daily * INSULIN LISPRO (U-100) 100 UN* 18 units with breakfast, 17 u * LISINOPRIL 20 MG TABLET Take 1 tablet by mouth once d* BIPAP Initiate BiPAP @ 24/18 cm of * FLASH GLUCOSE SENSOR KIT 1 Each four times daily. INSULIN NPH ISOPHANE U-100 HU* 32 units subcutaneous once da * CLOPIDOGREL 75 MG TABLET Take 1 tablet by mouth once d* INSULIN SYRINGE U-100 WITH NE* 1 Each three times daily. BACK BRACE 1 Device once daily as needed* AMIODARONE 200 MG TABLET Take 1 tablet by mouth once d* SPIRONOLACTONE 25 MG TABLET Take 1 tablet by mouth once d* AMLODIPINE 10 MG TABLET Take 0.5 tablets by mouth onc* CARVEDILOL 3.125 MG TABLET Take 1 tablet by mouth twice * ISOSORBIDE MONONITRATE ER 30 * Take 1 tablet by mouth once d * BLOOD SUGAR DIAGNOSTIC STRIPS Use as instructed to check bl* RANOLAZINE ER 1,000 MG TABLET* Take 1 tablet by mouth twice * FENOFIBRATE NANOCRYSTALLIZED * Take 1 tablet by mouth once d * PANTOPRAZOLE 40 MG TABLET,DEL* Take 40 mg by mouth once ajay * LANCETS Use with Onetouch Glucometer * ASPIRIN 81 MG TABLET Take 1 tablet by mouth once d* CRESTOR 40 MG TABLET Take one(1) tablet daily. 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/2007 Type 2 diabetes mellitus, uncontrolled (HCC) [E*02/16/2008 1 04/21/2014 ESOPHAGEAL REFLUX [K21.9] 03/06/2008 Benign Neoplasm of Colon [D12.6] 02/21/2009 Labyrinthitis [H83.09] 02/05/2010 06/07/2014 Dermatophytosis of nail [B35.1] 06/05/2011 Atrial fibrillation [I48.91] 07/03/2011 Anticoagulated on Coumadin [Z79.01] 07/03/2011 Chronic diarrhea [K52.9] 09/16/2011 06/07/2014 Class 2 severe obesity due to excess calories w*09/16/2011 Stasis dermatitis of both legs [I87.2] 04/05/2013 Foot callus [L84] 10/04/2014 Subsequent non-ST elevation (NSTEMI) myocardial*12/25/2014 Syncope [R55] 02/19/2015 Hyperlipidemia LDL goal <100 [E78.5] 02/19/2015 ASHD (arteriosclerotic heart disease) [I25.10] 02/19/2015 Neurocardiogenic syncope [R55] 03/01/2015 Dysphagia [R13.10] 03/01/2015 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 Balanitis [N48.1] 11/16/2016 Coronary angioplasty status [Z98.61] 11/16/2016 Elevated troponin I level [R79.89] 01/29/2013 More... Family history of cerebrovascular accident (CVA*01/26/2018 History of deep venous thrombosis [Z86.718] 01/26/2018 History of non-ST elevation myocardial infarcti*01/26/2018 Ischemic cardiomyopathy [I25.5] 11/20/2017 Leukocytosis [D72.829] 01/29/2013 More... JESSICA (obstructive sleep apnea) [G47.33] 07/26/2018 RLS (restless legs syndrome) [G25.81] 07/28/2018 Localized swelling, mass and lump, neck [R22.1] 07/28/2018 Acute on chronic systolic congestive heart fail*12/17/2018 Encounter Status:Closed by BLOSSOM (PHARMACIST)JOLEEN on cnpn on 2019-06-27 CNPN Telephone (FAMPWS) Normal 06-27-2019 [facility] LOVELY DEVI ([id number]) 1945 [facility] Date Time Provider Department ([id number]) 06/27/19 MORGAN VALDEZ III FAMPWS During your visit today, we recorded the following informati on about you: Samina Feliciano RN 06/27/2019 9:37 AM Signed Pt called, verified by name and birthdate. Pt states h e wants to know why rx for lasix was denied. After reviewing chart pt w as given rx on with 11 refills. Pt did not know he had a new rx at pharmacy. Pt will call pharmacy for refill. Samina Feliciano RN Allergies As of Date: 06/27/2019 Noted Allergy Reaction MORPHINE 02/28/2005 ROCEPHIN (CEFTRIAXONE SODIUM) 06/20/2014 14 - Other: See Com ments Comments: Hot flashes; redness to skin Date Reviewed: 04/28/2019 Reviewed by: Lin[place] ([facility]) JAZZY Carpenter - Fully Assessed Reason for Visit: Medication Question [1478] Prescriptions as of 06/27/2019 Sig: WARFARIN 3 MG TABLET 3 mg every Mon, Wed, Fri; 6 m* FUROSEMIDE 40 MG TABLET Take 1 tablet by mouth twice * ERGOCALCIFEROL (VITAMIN D2) 1* Take 1 capsule by mouth one t * TRAZODONE 50 MG TABLET Take 1 tablet by mouth daily * ROPINIROLE 0.5 MG TABLET Take 1 tablet by mouth daily * INSULIN LISPRO (U-100) 100 UN* 18 units with breakfast, 17 u * LISINOPRIL 20 MG TABLET Take 1 tablet by mouth once d* BIPAP Initiate BiPAP @ 24/18 cm of * FLASH GLUCOSE SENSOR KIT 1 Each four times daily. INSULIN NPH ISOPHANE U-100 HU* 32 units subcutaneous once da * CLOPIDOGREL 75 MG TABLET Take 1 tablet by mouth once d* INSULIN SYRINGE U-100 WITH NE* 1 Each three times daily. BACK BRACE 1 Device once daily as needed* AMIODARONE 200 MG TABLET Take 1 tablet by mouth once d* SPIRONOLACTONE 25 MG TABLET Take 1 tablet by mouth once d* AMLODIPINE 10 MG TABLET Take 0.5 tablets by mouth onc* CARVEDILOL 3.125 MG TABLET Take 1 tablet by mouth twice * ISOSORBIDE MONONITRATE ER 30 * Take 1 tablet by mouth once d * BLOOD SUGAR DIAGNOSTIC STRIPS Use as instructed to check bl* RANOLAZINE ER 1,000 MG TABLET* Take 1 tablet by mouth twice * FENOFIBRATE NANOCRYSTALLIZED * Take 1 tablet by mouth once d * PANTOPRAZOLE 40 MG TABLET,DEL* Take 40 mg by mouth once ajay * LANCETS Use with Onetouch Glucometer * ASPIRIN 81 MG TABLET Take 1 tablet by mouth once d* CRESTOR 40 MG TABLET Take one(1) tablet daily. 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/16/2007 Type 2 diabetes mellitus, uncontrolled (HCC) [E*02/16/2008 1 04/21/2014 ESOPHAGEAL REFLUX [K21.9] 03/06/2008 Benign Neoplasm of Colon [D12.6] 02/21/2009 Labyrinthitis [H83.09] 02/05/2010 06/07/2014 Dermatophytosis of nail [B35.1] 06/05/2011 Atrial fibrillation [I48.91] 07/03/2011 Anticoagulated on Coumadin [Z79.01] 07/03/2011 Chronic diarrhea [K52.9] 09/16/2011 06/07/2014 Class 2 severe obesity due to excess calories w*09/16/2011 Stasis dermatitis of both legs [I87.2] 04/05/2013 Foot callus [L84] 10/04/2014 Subsequent non-ST elevation (NSTEMI) myocardial*12/25/2014 Syncope [R55] 02/19/2015 Hyperlipidemia LDL goal <100 [E78.5] 02/19/2015 ASHD (arteriosclerotic heart disease) [I25.10] 02/19/2015 Neurocardiogenic syncope [R55] 03/01/2015 Dysphagia [R13.10] 03/01/2015 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 Balanitis [N48.1] 11/16/2016 Coronary angioplasty status [Z98.61] 11/16/2016 Elevated troponin I level [R79.89] 01/29/2013 More... Family history of cerebrovascular accident (CVA*01/26/2018 History of deep venous thrombosis [Z86.718] 01/26/2018 History of non-ST elevation myocardial infarcti*01/26/2018 Ischemic cardiomyopathy [I25.5] 11/20/2017 Leukocytosis [D72.829] 01/29/2013 More... JESSICA (obstructive sleep apnea) [G47.33] 07/26/2018 RLS (restless legs syndrome) [G25.81] 07/28/2018 Localized swelling, mass and lump, neck [R22.1] 07/28/2018 Acute on chronic systolic congestive heart fail*12/17/2018 Encounter Status:Closed by SAMINA FELICIANO RN on 06/27/19 obsolete on 2019-05 OBSOLETE Refill (FAMPWS) Normal 06-25-2019 [facility] LOVELY DEVI ([id number]) 1945 M [place] Date Time Provider Department ([id number]) 06/25/19 MORGAN VALDEZ III FAMPWS During your visit today, we recorded the following informati on about you: Allergies As of Date: 06/25/2019 Noted Allergy Reaction MORPHINE 02/28/2005 ROCEPHIN (CEFTRIAXONE SODIUM) 06/20/2014 14 - Other: See Com ments Comments: Hot flashes; redness to skin Date Reviewed: 04/28/2019 Reviewed by: [place] ([facility]) JAZZY Carpenter - Fully Assessed Reason for Visit: Refill Request [94] Visit Diagnosis:Acute on chronic systolic congestive heart f ailure (HCC) [I50.23] Prescriptions as of 06/25/2019 Sig: WARFARIN 3 MG TABLET 3 mg every Mon, Wed, Fri; 6 m* FUROSEMIDE 40 MG TABLET Take 1 tablet by mouth twice * ERGOCALCIFEROL (VITAMIN D2) 1* Take 1 capsule by mouth one t * TRAZODONE 50 MG TABLET Take 1 tablet by mouth daily * ROPINIROLE 0.5 MG TABLET Take 1 tablet by mouth daily * INSULIN LISPRO (U-100) 100 UN* 18 units with breakfast, 17 u * LISINOPRIL 20 MG TABLET Take 1 tablet by mouth once d* BIPAP Initiate BiPAP @ 24/18 cm of * FLASH GLUCOSE SENSOR KIT 1 Each four times daily. INSULIN NPH ISOPHANE U-100 HU* 32 units subcutaneous once da * CLOPIDOGREL 75 MG TABLET Take 1 tablet by mouth once d* INSULIN SYRINGE U-100 WITH NE* 1 Each three times daily. BACK BRACE 1 Device once daily as needed* AMIODARONE 200 MG TABLET Take 1 tablet by mouth once d* SPIRONOLACTONE 25 MG TABLET Take 1 tablet by mouth once d* AMLODIPINE 10 MG TABLET Take 0.5 tablets by mouth onc* CARVEDILOL 3.125 MG TABLET Take 1 tablet by mouth twice * ISOSORBIDE MONONITRATE ER 30 * Take 1 tablet by mouth once d * BLOOD SUGAR DIAGNOSTIC STRIPS Use as instructed to check bl* RANOLAZINE ER 1,000 MG TABLET* Take 1 tablet by mouth twice * FENOFIBRATE NANOCRYSTALLIZED * Take 1 tablet by mouth once d * PANTOPRAZOLE 40 MG TABLET,DEL* Take 40 mg by mouth once ajay * LANCETS Use with [employer] Planuch Glucometer * ASPIRIN 81 MG TABLET Take 1 tablet by mouth once d* CRESTOR 40 MG TABLET Take one(1) tablet daily. 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*09/16/2007 Type 2 diabetes mellitus, uncontrolled (HCC) [E*02/16/2008 1 04/21/2014 ESOPHAGEAL REFLUX [K21.9] 03/06/2008 Benign Neoplasm of Colon [D12.6] 02/21/2009 Labyrinthitis [H83.09] 02/05/2010 06/07/2014 Dermatophytosis of nail [B35.1] 06/05/2011 Atrial fibrillation [I48.91] 07/03/2011 Anticoagulated on Coumadin [Z79.01] 07/03/2011 Chronic diarrhea [K52.9] 09/16/2011 06/07/2014 Class 2 severe obesity due to excess calories w*09/16/2011 Stasis dermatitis of both legs [I87.2] 04/05/2013 Foot callus [L84] 10/04/2014 Subsequent non-ST elevation (NSTEMI) myocardial*12/25/2014 Syncope [R55] 02/19/2015 Hyperlipidemia LDL goal <100 [E78.5] 02/19/2015 ASHD (arteriosclerotic heart disease) [I25.10] 02/19/2015 Neurocardiogenic syncope [R55] 03/01/2015 Dysphagia [R13.10] 03/01/2015 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 Balanitis [N48.1] 11/16/2016 Coronary angioplasty status [Z98.61] 11/16/2016 Elevated troponin I level [R79.89] 01/29/2013 More... Family history of cerebrovascular accident (CVA*01/26/2018 History of deep venous thrombosis [Z86.718] 01/26/2018 History of non-ST elevation myocardial infarcti*01/26/2018 Ischemic cardiomyopathy [I25.5] 11/20/2017 Leukocytosis [D72.829] 01/29/2013 More... JESSICA (obstructive sleep apnea) [G47.33] 07/26/2018 RLS (restless legs syndrome) [G25.81] 07/28/2018 Localized swelling, mass and lump, neck [R22.1] 07/28/2018 Acute on chronic systolic congestive heart fail*12/17/2018 Encounter Status:Closed by NORM GUEVARA MA on 06/27/19 cnpn on 2019-06-15 CNPN Telephone ([facility]) Normal 06-15-2019 [facility] LOVELY DEVI ([id number]) 1945 M [facility] Time Provider Department ([id number]) 06/15/19 BLOSSOM (PHARMACIST)BRIJESH During your visit today, we recorded the following informati on about you: JOLEEN CERRATO, PHARMACIST 06/15/2019 10:12 AM Signed Tried pt twice but it kept ringing with no answer. Will attempt him later today. Joleen Cerrato, PharmD Pharmacy Antico[facility] Anshul Dailey 06/15/2019 3:15 PM Signed [facility] Referring provider: No ref. provider found Lovely Devi is a 73 year old year old male patient being evaluated today for anticoagulation Telemanagement visit. Patient is currently on the following anticoagulant Warfarin Labs PT INR (no units) Date Value 11/26/2018 Test sent to [facility]. 10/16/2017 1.8 01/16/2017 Test sent to [facility]. INR (POCT) (no units) Date Value 02/21/2019 2.9 01/24/2019 2.9 01/17/2019 3.2 INR Home CoaguChek (no units) Date Value 06/15/2019 1.8 06/01/2019 2.7 05/18/2019 2.5 Hemoglobin (g/dL) Date Value 01/14/2019 12.0 Hematocrit (%) Date Value 01/14/2019 37.9 Platelet Count (k/uL) Date Value 01/14/2019 154 Creatinine (mg/dL) Date Value 04/21/2019 1.35 01/14/2019 1.24 12/17/2018 1.34 Bilirubin, Total (mg/dL) Date Value 04/21/2019 0.6 ALT (U/L) Date Value 04/21/2019 33 AST (U/L) Date Value 04/21/2019 36 CrCl cannot be calculated (Unknown ideal weight.). ALLERGIES Allergen Reactions - Morphine - Rocephin [Ceftriaxo* Other: See Comments Hot flashes; redness to skin Indication for Warfarin: Paroxysmal atrial fibrillation (hcc ) Anticoagulated on coumadin Goal INR Range: @INRGOAL@ Assessment: ? INR result of 1.8 is SUBtherapeutic due to: Increased good min k intake Plan: ? Advised patient to increase dose for 1 day only then resume weekly regimen ? Next home INR check scheduled on 06/29/2019 ? Patient verbalizes understanding of the plan. ? Patient denies need for refills. Lacey Michelle, Pharmacist Clinical Pharmacist, Pharmacy Anticoagulation Clinic Pharm[facility] Pager: [phone] Description Patient has 3 mg tablets of warfarin. Patient takes in the m orning. . Allergies As of Date: 06/15/2019 Noted Allergy Reaction MORPHINE 02/28/2005 ROCEPHIN (CEFTRIAXONE SODIUM) 06/20/2014 14 - Other: See Com ments Comments: Hot flashes; redness to skin Date Reviewed: 04/28/2019 Reviewed by: [place] ([facility]) JAZZY Carpenter - Fully Assessed Reason for Visit: Anticoagulation Telephone Fu [148] Cmt: Home INR Test Primary Visit Diagnosis:Anticoagulated on Coumadin [Z79.01] Other Visit Diagnosis:Paroxysmal atrial fibrillation (HCC) [ I48.0] Prescriptions as of 06/15/2019 Sig: WARFARIN 3 MG TABLET 3 mg every Mon, Wed, Fri; 6 m* FUROSEMIDE 40 MG TABLET Take 1 tablet by mouth twice * ERGOCALCIFEROL (VITAMIN D2) 1* Take 1 capsule by mouth one t * TRAZODONE 50 MG TABLET Take 1 tablet by mouth daily * ROPINIROLE 0.5 MG TABLET Take 1 tablet by mouth daily * INSULIN LISPRO (U-100) 100 UN* 18 units with breakfast, 17 u * LISINOPRIL 20 MG TABLET Take 1 tablet by mouth once d* BIPAP Initiate BiPAP @ 24/18 cm of * FLASH GLUCOSE SENSOR KIT 1 Each four times daily. INSULIN NPH ISOPHANE U-100 HU* 32 units subcutaneous once da * CLOPIDOGREL 75 MG TABLET Take 1 tablet by mouth once d* INSULIN SYRINGE U-100 WITH NE* 1 Each three times daily. BACK BRACE 1 Device once daily as needed* AMIODARONE 200 MG TABLET Take 1 tablet by mouth once d* SPIRONOLACTONE 25 MG TABLET Take 1 tablet by mouth once d* AMLODIPINE 10 MG TABLET Take 0.5 tablets by mouth onc* CARVEDILOL 3.125 MG TABLET Take 1 tablet by mouth twice * ISOSORBIDE MONONITRATE ER 30 * Take 1 tablet by mouth once d * BLOOD SUGAR DIAGNOSTIC STRIPS Use as instructed to check bl* RANOLAZINE ER 1,000 MG TABLET* Take 1 tablet by mouth twice * FENOFIBRATE NANOCRYSTALLIZED * Take 1 tablet by mouth once d * PANTOPRAZOLE 40 MG TABLET,DEL* Take 40 mg by mouth once ajay * LANCETS Use with Smar[employer]ots Glucometer * ASPIRIN 81 MG TABLET Take 1 tablet by mouth once d* CRESTOR 40 MG TABLET Take one(1) tablet daily. 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*09/16/2007 Type 2 diabetes mellitus, uncontrolled (HCC) [E*02/16/2008 1 04/21/2014 ESOPHAGEAL REFLUX [K21.9] 03/06/2008 Benign Neoplasm of Colon [D12.6] 02/21/2009 Labyrinthitis [H83.09] 02/05/2010 06/07/2014 Dermatophytosis of nail [B35.1] 06/05/2011 Atrial fibrillation [I48.91] 07/03/2011 Anticoagulated on Coumadin [Z79.01] 07/03/2011 Chronic diarrhea [K52.9] 09/16/2011 06/07/2014 Class 2 severe obesity due to excess calories w*09/16/2011 Stasis dermatitis of both legs [I87.2] 04/05/2013 Foot callus [L84] 10/04/2014 Subsequent non-ST elevation (NSTEMI) myocardial*12/25/2014 Syncope [R55] 02/19/2015 Hyperlipidemia LDL goal <100 [E78.5] 02/19/2015 ASHD (arteriosclerotic heart disease) [I25.10] 02/19/2015 Neurocardiogenic syncope [R55] 03/01/2015 Dysphagia [R13.10] 03/01/2015 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 Balanitis [N48.1] 11/16/2016 Coronary angioplasty status [Z98.61] 11/16/2016 Elevated troponin I level [R79.89] 01/29/2013 More... Family history of cerebrovascular accident (CVA*01/26/2018 History of deep venous thrombosis [Z86.718] 01/26/2018 History of non-ST elevation myocardial infarcti*01/26/2018 Ischemic cardiomyopathy [I25.5] 11/20/2017 Leukocytosis [D72.829] 01/29/2013 More... JESSICA (obstructive sleep apnea) [G47.33] 07/26/2018 RLS (restless legs syndrome) [G25.81] 07/28/2018 Localized swelling, mass and lump, neck [R22.1] 07/28/2018 Acute on chronic systolic congestive heart fail*12/17/2018 Encounter Status:Closed by SHAW (PHARMACIST)LACEY on cnpn on 2019-05-25 CNPN Telephone ([facility]) Normal 05-25-2019 [facility] LOVELY DEVI ([id number]) 1945 M [place] Date Time Provider Department ([id number]) 05/25/19 BLOSSOM (PHARMACIST)BRIJESH During your visit today, we recorded the following informati on about you: JOLEEN CERRATO PHARMACIST 05/25/2019 4:52 PM Signed Patient was due to test INR today will continue to monitor f or results. Joleen Cerrato PharmD [facility] Tahira Moore Pharmacist 06/01/2019 9:01 AM Signed [facility] Referring provider: No ref. provider found Lovely Devi is a 73 year old year old male patient being evaluated today for anticoagulation Telemanagement visit. Patient is currently on the following anticoagulant Warfarin Labs PT INR (no units) Date Value 11/26/2018 Test sent to [facility]. 10/16/2017 1.8 01/16/2017 Test sent to [facility]. INR (POCT) (no units) Date Value 02/21/2019 2.9 01/24/2019 2.9 01/17/2019 3.2 INR Home CoaguChek (no units) Date Value 06/01/2019 2.7 05/18/2019 2.5 05/11/2019 3.3 Hemoglobin (g/dL) Date Value 01/14/2019 12.0 Hematocrit (%) Date Value 01/14/2019 37.9 Platelet Count (k/uL) Date Value 01/14/2019 154 Creatinine (mg/dL) Date Value 04/21/2019 1.35 01/14/2019 1.24 12/17/2018 1.34 Bilirubin, Total (mg/dL) Date Value 04/21/2019 0.6 ALT (U/L) Date Value 04/21/2019 33 AST (U/L) Date Value 04/21/2019 36 CrCl cannot be calculated (Unknown ideal weight.). ALLERGIES Allergen Reactions - Morphine - Rocephin [Ceftriaxo* Other: See Comments Hot flashes; redness to skin Indication for Warfarin: Paroxysmal atrial fibrillation (hcc ) Automatic implantable cardioverter-defibrillator in situ Paroxysmal ventricular tachycardia (hcc) Goal INR Range: @INRGOAL@ Assessment: ? INR result of is therapeutic Plan: ? Left message: Advised patient to continue current weekly d ose ? Next home INR check scheduled on 06/15/2019 The patient was advised to call the [facility] @ [phone] for any questions or concerns. Tahira Moore PharmD Clinical Pharmacist, [facility] Pharm[facility] Pager: [phone] Description Patient has 3 mg tablets of warfarin. Patient takes in the m orning. . Allergies As of Date: 05/25/2019 Noted Allergy Reaction MORPHINE 02/28/2005 ROCEPHIN (CEFTRIAXONE SODIUM) 06/20/2014 14 - Other: See Com ments Comments: Hot flashes; redness to skin Date Reviewed: 04/28/2019 Reviewed by: [place] ([facility]) JAZZY Carpenter - Fully Assessed Reason for Visit: Anticoagulation Telephone Fu [148] Cmt: Home INR (due 2019) Reason For Visit History Recorded Visit Diagnoses:Paroxysmal atrial fibrillation (HCC) [I48.0] Automatic implantable cardioverter-defibrillator in situ [Z95.810] Paroxysmal ventricular tachycardia (HCC) [I47.2] Prescriptions as of 05/25/2019 Sig: WARFARIN 3 MG TABLET 3 mg every Mon, Wed, Fri; 6 m* FUROSEMIDE 40 MG TABLET Take 1 tablet by mouth twice * ERGOCALCIFEROL (VITAMIN D2) 1* Take 1 capsule by mouth one t * TRAZODONE 50 MG TABLET Take 1 tablet by mouth daily * ROPINIROLE 0.5 MG TABLET Take 1 tablet by mouth daily * INSULIN LISPRO (U-100) 100 UN* 18 units with breakfast, 17 u * LISINOPRIL 20 MG TABLET Take 1 tablet by mouth once d* BIPAP Initiate BiPAP @ 24/18 cm of * FLASH GLUCOSE SENSOR KIT 1 Each four times daily. INSULIN NPH ISOPHANE U-100 HU* 32 units subcutaneous once da * CLOPIDOGREL 75 MG TABLET Take 1 tablet by mouth once d* INSULIN SYRINGE U-100 WITH NE* 1 Each three times daily. BACK BRACE 1 Device once daily as needed* AMIODARONE 200 MG TABLET Take 1 tablet by mouth once d* SPIRONOLACTONE 25 MG TABLET Take 1 tablet by mouth once d* AMLODIPINE 10 MG TABLET Take 0.5 tablets by mouth onc* CARVEDILOL 3.125 MG TABLET Take 1 tablet by mouth twice * ISOSORBIDE MONONITRATE ER 30 * Take 1 tablet by mouth once d * BLOOD SUGAR DIAGNOSTIC STRIPS Use as instructed to check bl* RANOLAZINE ER 1,000 MG TABLET* Take 1 tablet by mouth twice * FENOFIBRATE NANOCRYSTALLIZED * Take 1 tablet by mouth once d * PANTOPRAZOLE 40 MG TABLET,DEL* Take 40 mg by mouth once ajay * LANCETS Use with Onetouch Glucometer * ASPIRIN 81 MG TABLET Take 1 tablet by mouth once d* CRESTOR 40 MG TABLET Take one(1) tablet daily. 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*09/16/2007 Type 2 diabetes mellitus, uncontrolled (HCC) [E*02/16/2008 1 04/21/2014 ESOPHAGEAL REFLUX [K21.9] 03/06/2008 Benign Neoplasm of Colon [D12.6] 02/21/2009 Labyrinthitis [H83.09] 02/05/2010 06/07/2014 Dermatophytosis of nail [B35.1] 06/05/2011 Atrial fibrillation [I48.91] 07/03/2011 Anticoagulated on Coumadin [Z79.01] 07/03/2011 Chronic diarrhea [K52.9] 09/16/2011 06/07/2014 Class 2 severe obesity due to excess calories w*09/16/2011 Stasis dermatitis of both legs [I87.2] 04/05/2013 Foot callus [L84] 10/04/2014 Subsequent non-ST elevation (NSTEMI) myocardial*12/25/2014 Syncope [R55] 02/19/2015 Hyperlipidemia LDL goal <100 [E78.5] 02/19/2015 ASHD (arteriosclerotic heart disease) [I25.10] 02/19/2015 Neurocardiogenic syncope [R55] 03/01/2015 Dysphagia [R13.10] 03/01/2015 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 Balanitis [N48.1] 11/16/2016 Coronary angioplasty status [Z98.61] 11/16/2016 Elevated troponin I level [R79.89] 01/29/2013 More... Family history of cerebrovascular accident (CVA*01/26/2018 History of deep venous thrombosis [Z86.718] 01/26/2018 History of non-ST elevation myocardial infarcti*01/26/2018 Ischemic cardiomyopathy [I25.5] 11/20/2017 Leukocytosis [D72.829] 01/29/2013 More... JESSICA (obstructive sleep apnea) [G47.33] 07/26/2018 RLS (restless legs syndrome) [G25.81] 07/28/2018 Localized swelling, mass and lump, neck [R22.1] 07/28/2018 Acute on chronic systolic congestive heart fail*12/17/2018 Encounter Status:Closed by ROXANA (PHARMACIST)TAHIRA on progress on 2019-03 PROGRESS HNO ID: [id number] Normal 04-28-2019 [facility] Author: Morgan Valdez III [place] ([id number]) Service: ? Author Type: Physician Type: Progress Notes Filed: 04/28/2019 1:33 PM Note Text: SUBJECTIVE: This is a 73 year old male that is here today fo r 1. 3 month check up. diabetes mellitus--recent glu >300 asso c with diarrhea. No recent hypoglycemia. Light lunch. 2. hypertension 3. hyperlipidemia 4. atrial fib/flutter on coumadin. Recent INR elevated.3.8. with instructions to reduce coumadin for a dose. I discussed eati ng salad daily and more green vegetables 5. morbid obesty 6. abd cramping with diarrhea since last night. Mild decreas e appetite with nausea w/o emesis. no chest pain, angina, FOURNIER, cough, , rectal bleeding, change in urination Current Outpatient Medications on File Prior to Visit Medication Sig - furosemide (LASIX) 40 mg tablet Take 1 tablet by mouth twi ce daily. - ergocalciferol 50,000 unit capsule (VITAMIN D2, DRISDOL) T tana 1 capsule by mouth one time a week. - traZODone (DESYREL) 50 mg tablet Take 1 tablet by mouth da alisha at bedtime. - rOPINIRole (REQUIP) 0.5 mg tablet Take 1 tablet by mouth d aily at bedtime. - warfarin (COUMADIN) 3 mg tablet 6 mg daily - insulin lispro (HUMALOG U-100 INSULIN) 100 unit/mL injecti on 18 units with breakfast, 17 units at lunch, and 24 units with supper. - lisinopril (ZESTRIL, PRINIVIL) 20 mg tablet Take 1 tablet by mouth once daily. - BIPAP Initiate BiPAP @ 24/18 cm of water with humidificati on. Mask (per patient preference), chin strap, filters, tubing / heated tu jin, heated humidity and lifetime supplies. Dx. JESSICA G47.33 327.23 - fax compliance download to [phone] - flash glucose sensor (FREESTYLE ANITRA 14 DAY SENSOR) kit 1 Each four times daily. - insulin NPH human (HUMULIN N NPH U-100 INSULIN) injection 32 units subcutaneous once daily before breakfast and 32 units at bed time - clopidogrel (PLAVIX) 75 mg tablet Take 1 tablet by mouth o nce daily. - Insulin Syringe-Needle U-100 (BD ULTRAFINE INSULIN) 1 mL 3 1 gauge x 5/16 syrg 1 Each three times daily. - Back Brace misc 1 Device once daily as needed. size large - amiodarone (PACERONE) 200 mg tablet Take 1 tablet by mouth once daily. - spironolactone (ALDACTONE) 25 mg tablet Take 1 tablet by m outh once daily. - amLODIPine (NORVASC) 10 mg tablet Take 0.5 tablets by mout h once daily. - carvedilol (COREG) 3.125 mg tablet Take 1 tablet by mouth twice daily. for one week starting on 06/20/16 then will be taking 6.25 x 2 daily . - isosorbide mononitrate ER (IMDUR) 30 mg 24 hr tablet Take 1 tablet by mouth once daily. - blood sugar diagnostic ([employer] BLOOD GLUCOSE SYSTEM) test strip Use as instructed to check blood sugar 3 to 4 times daily DM: yes I nsulin: yes DX:11.9 - ranolazine SR (RANEXA) 1,000 mg Tb12 Take 1 tablet by mout h twice daily. - fenofibrate nanocrystallized (TRICOR) 145 mg tablet Take 1 tablet by mouth once daily. - pantoprazole DR (PROTONIX) 40 mg tablet Take 40 mg by mout h once daily. - Lancets (ONE TOUCH ULTRASOFT LANCETS) lancets Use with One touch Glucometer as directed - Aspirin 81 mg ORAL Tab Take 1 tablet by mouth once daily. Take with food. - CRESTOR 40 MG TAB Take one(1) tablet daily. - NITROGLYCERIN 0.3 MG SUBLINGUAL TAB as necessary No current facility-administered medications on file prior t o visit. PAST MEDICAL HISTORY Diagnosis Date - ASHD (arteriosclerotic heart disease) 02/19/2015 - Atrial fibrillation (HCC) 07/03/2011 - Automatic implantable cardiac defibrillator in situ - Petit's esophagus with esophagitis 03/01/2015 - Benign neoplasm of colon - Chronic diarrhea 09/16/2011 - Coronary atherosclerosis of unspecified type of vessel, na tive or graft s/p PR in 1985 - Diverticulosis of colon (without mention of hemorrhage) - Duodenitis without mention of hemorrhage - Dysphagia 03/01/2015 - Facet arthritis of lumbar region 07/14/2017 - GERD (gastroesophageal reflux disease) 06/10/12 - Heart attack (HCC) - Labyrinthitis 02/05/2010 - Neurocardiogenic syncope 03/01/2015 - Obesity 09/16/2011 - JESSICA treated with BiPAP DME [employer] - Other and unspecified hyperlipidemia - Other specified forms of chronic ischemic heart disease - Paroxysmal ventricular tachycardia (HCC) - Snoring - Stroke ([facility]) - Tinea of nail 01/13/2011 - Type 2 diabetes mellitus with stage 3 chronic kidney disea se, with long-term current use of insulin (HCC) 06/15/2017 - Unspecified essential hypertension FAMILY HISTORY Problem Relation Age of Onset - Stroke Mother - Heart Mother - Cancer Father prostate - Heart Father - Breast Cancer Sister - Breast Cancer Sister - Diabetes Sister - Diabetes Brother - Diabetes Brother Social History Tobacco Use - Smoking status: Former Smoker Years: 15.00 Types: Cigars Last attempt to quit: 08/12/2007 Years since quittin.7 - Smokeless tobacco: Never Used - Tobacco comment: 2-3 per day Substance Use Topics - Alcohol use: No - Drug use: No BP 106/66 Pulse (!) 57 Resp 16 Wt 119.7 kg (264 lb) BMI 40.14 kg/m? OBJECTIVE: APPEARANCE Well appearing, alert, in no acute distress, well -hydrated, well nourished. and Morbidly obese NECK Supple, no adenopathy; thyroid symmetric, normal size, no bruits HEART RRR with normal S1 and S2, no murmurs, no gallops, no JVD appreciated LUNG clear to auscultation ABDOMEN bowel sounds normoactive, no bruits, soft, non-tende r, non-distended, without organomegaly or palpable masses, mild lower abd tenderness. Eccymoses lower abd assoc. with insulin injectio n sites EXTREMITIES no lower leg pitting edema Lab Results for LOVELY DEIV ( ) as of 04/01 10:55 Ref. Range 04/21/2019 08:29 04/27/2019 09:07 Sodium Latest Ref Range: 136 - 144 mmol/L 138 Potassium Latest Ref Range: 3.7 - 5.1 mmol/L 4.6 Chloride Latest Ref Range: 97 - 105 mmol/L 98 CO2 Latest Ref Range: 22 - 30 mmol/L 27 BUN Latest Ref Range: 9 - 24 mg/dL 25 (H) Creatinine Latest Ref Range: 0.73 - 1.22 mg/dL 1.35 (H) Glucose Latest Ref Range: 74 - 99 mg/dL 185 (H) Protein, Total Latest Ref Range: 6.3 - 8.0 g/dL 7.1 Calcium Latest Ref Range: 8.5 - 10.2 mg/dL 9.3 Albumin Latest Ref Range: 3.9 - 4.9 g/dL 4.5 Bilirubin, Total Latest Ref Range: 0.2 - 1.3 mg/dL 0.6 Alkaline Phosphatase Latest Ref Range: 38 - 113 U/L 51 ALT Latest Ref Range: 10 - 54 U/L 33 AST Latest Ref Range: 14 - 40 U/L 36 Anion Gap Latest Ref Range: 9 - 18 mmol/L 13 eGFR- Unknown >60 eGFR-All Other Races Latest Units: . 52 Vitamin D 25 Hydroxy Latest Ref Range: 31.0 - 80.0 ng/mL 28. 0 (L) Hemoglobin A1C Latest Ref Range: 4.3 - 5.6 % 6.8 (H) Estimated Average Glucose Latest Units: mg/dL 148 INR Home CoaguChek Latest Ref Range: 2.0 - 3.0 3.8 (A) ASSESSMENT: acute gastroenterits diabetes mellitus--at goal hypertension--at goal hyperllipidemia--at goal morbid obesity--some wt loss atrial fib/flutter--presently in reg rhythm ch. anticoagulation--high INR CKD III--stable GFR 52 PLAN: healthy weight losing diet and regular exercise eat less sugar, bread, potato, pasta, rice, corn, corn syrup , saturated fats daily salad and eat more green vegetables follow INR return to office 6 mos with labs expect diarrhea to resolve w/i 2-3 days notify office if not improving Morgan Valdez III MD cnov on 2019-04-28 CNOV Office Visit (FAMPWS) Normal 04-28-19 [facility] LOVELY EDVI ([id number]) 1945 [place] Date Time Provider Department ([id number]) 04/28/19 10:20 AM MORGAN VALDEZ IIIWS During your visit today, we recorded the following informati on about you: Pulse Respiration Blood pressure Weight 57/minute 16/minute 106/66 119.7 kg Morgan Valdez III MD 04/28/2019 1:33 PM Signed SUBJECTIVE: This is a 73 year old male that is here today fo r 1. 3 month check up. diabetes mellitus--recent glu >30 0 assoc with diarrhea. No recent hypoglycemia. Light lunch. 2. hypertension 3. hyperlipidemia 4. atrial fib/flutter on coumadin. Recent INR el evated.3.8. with instructions to reduce coumadin for a dose. I discussed eating elena d daily and more green vegetables 5. morbid obesty 6. abd cramping with diarrhea since last night. Mild decre ase appetite with nausea w/o emesis. no chest pain, angina, FOURNIER, cough, , rectal bleeding, change in urination Current Outpatient Medications on File Prior to Visit Medication Sig - furosemide (LASIX) 40 mg tablet Take 1 tablet by mouth twi ce daily. - ergocalciferol 50,000 unit capsule (VITAMIN D2, DRIS DOL) Take 1 capsule by mouth one time a week. - traZODone (DESYREL) 50 mg tablet Take 1 tablet by mouth daily at bedtime. - rOPINIRole (REQUIP) 0.5 mg tablet Take 1 tablet by m outh daily at bedtime. - warfarin (COUMADIN) 3 mg tablet 6 mg daily - insulin lispro (HUMALOG U-100 INSULIN) 100 unit/mL i njection 18 units with breakfast, 17 units at lunch, and 24 units with supper. - lisinopril (ZESTRIL, PRINIVIL) 20 mg tablet Take 1 tablet by mouth once daily. - BIPAP Initiate BiPAP @ 24/18 cm of water with humidificati on. Mask (per patient preference), chin strap, filters, tubing / heated tu jin, heated humidity and lifetime supplies. Dx. JESSICA G47.33 327.23 - fax compliance download to [phone] - flash glucose sensor (FREESTYLE ANITRA 14 DAY SENSOR) kit 1 Each four times daily. - insulin NPH human (HUMULIN N NPH U-100 INSULIN) injection 32 units subcutaneous once daily before breakfast and 32 units at bed time - clopidogrel (PLAVIX) 75 mg tablet Take 1 tablet by mouth o nce daily. - Insulin Syringe-Needle U-1 00 (BD ULTRAFINE INSULIN) 1 mL 31 gauge x 5/16 syrg 1 Each three times daily. - Back Brace misc 1 Device once daily as needed. size large - amiodarone (PACERONE) 200 mg tablet Take 1 tablet by mouth once daily. - spironolactone (ALDACTONE) 25 mg tablet Take 1 table t by mouth once daily. - amLODIPine (NORVASC) 10 mg tablet Take 0.5 tablets by mout h once daily. - carvedilol (COREG) 3.125 mg tablet Take 1 tablet by mouth twice daily. for one week starting on 06/20/16 then will be taking 6.25 x 2 da alisha . - isosorbide mononitrate ER (IMDUR) 30 mg 24 hr tablet Take 1 tablet by mouth once daily. - blood sugar diagnostic ([employer] BLOOD GLUCOSE SYSTEM) test strip Use as instructed to check blood ureña gar 3 to 4 times daily DM: yes Insulin: yes DX:11.9 - ranolazine SR (RANEXA) 1,000 mg Tb12 Take 1 tablet by mout h twice daily. - fenofibrate nanocrystallized (TRICOR) 145 mg tablet Take 1 tablet by mouth once daily. - pantoprazole DR (PROTONIX) 40 mg tablet Take 40 mg by mout h once daily. - Lancets (ONE TOUCH ULTRASO FT LANCETS) lancets Use with [employer] Glucometer as directed - Aspirin 81 mg ORAL Tab Take 1 tablet by mouth once daily . Take with food. - CRESTOR 40 MG TAB Take one(1) tablet daily. - NITROGLYCERIN 0.3 MG SUBLINGUAL TAB as necessary No current facility-administered medications on file prior t o visit. PAST MEDICAL HISTORY Diagnosis Date - ASHD (arteriosclerotic heart disease) 02/19/2015 - Atrial fibrillation (HCC) 07/03/2011 - Automatic implantable cardiac defibrillator in situ - Petit's esophagus with esophagitis 03/01/2015 - Benign neoplasm of colon - Chronic diarrhea 09/16/2011 - Coronary atherosclerosis of unspecified type of vessel, na tive or graft s/p PR in 1985 - Diverticulosis of colon (without mention of hemorrhage) - Duodenitis without mention of hemorrhage - Dysphagia 03/01/2015 - Facet arthritis of lumbar region 07/14/2017 - GERD (gastroesophageal reflux disease) 06/10/12 - Heart attack (HCC) - Labyrinthitis 02/05/2010 - Neurocardiogenic syncope 03/01/2015 - Obesity 09/16/2011 - JESSICA treated with BiPAP DME [employer] - Other and unspecified hyperlipidemia - Other specified forms of chronic ischemic heart disease - Paroxysmal ventricular tachycardia (HCC) - Snoring - Stroke (HCC) - Tinea of nail 01/13/2011 - Type 2 diabetes mellitus with st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, with long-term current use of insulin (HCC) 06/15/2017 - Unspecified essential hypertension FAMILY HISTORY Problem Relation Age of Onset - Stroke Mother - Heart Mother - Cancer Father prostate - Heart Father - Breast Cancer Sister - Breast Cancer Sister - Diabetes Sister - Diabetes Brother - Diabetes Brother Social History Tobacco Use - Smoking status: Former Smoker Years: 15.00 Types: Cigars Last attempt to quit: 08/12/2007 Years since quittin.7 - Smokeless tobacco: Never Used - Tobacco comment: 2-3 per day Substance Use Topics - Alcohol use: No - Drug use: No BP 106/66 Pulse (!) 57 Resp 16 Wt 119.7 kg (264 lb) BMI 40.14 kg/m? OBJECTIVE: APPEARANCE Well appearing, alert, in no acute distress, we ll-hydrated, well nourished. and Morbidly obese NECK Supple, no adenopathy; thyroid symmetric, normal size, no bruits HEART RRR with normal S1 and S2, no murmurs, no gallops, n o JVD appreciated LUNG clear to auscultation ABDOMEN bowel sounds normoactive, no bruits, sof t, non-tender, non-distended, without organomegaly or palpable masses, mild lo wer abd tenderness. Eccymoses lower abd assoc. with insulin injection sites EXTREMITIES no lower leg pitting edema Lab Results for LOVELY DEVI ( ) as of 04/01 10:55 Ref. Range 04/21/2019 08:29 04/27/2019 09:07 Sodium Latest Ref Range: 136 - 144 mmol/L 138 Potassium Latest Ref Range: 3.7 - 5.1 mmol/L 4.6 Chloride Latest Ref Range: 97 - 105 mmol/L 98 CO2 Latest Ref Range: 22 - 30 mmol/L 27 BUN Latest Ref Range: 9 - 24 mg/dL 25 (H) Creatinine Latest Ref Range: 0.73 - 1.22 mg/dL 1.35 (H) Glucose Latest Ref Range: 74 - 99 mg/dL 185 (H) Protein, Total Latest Ref Range: 6.3 - 8.0 g/dL 7.1 Calcium Latest Ref Range: 8.5 - 10.2 mg/dL 9.3 Albumin Latest Ref Range: 3.9 - 4.9 g/dL 4.5 Bilirubin, Total Latest Ref Range: 0.2 - 1.3 mg/dL 0.6 Alkaline Phosphatase Latest Ref Range: 38 - 113 U/L 51 ALT Latest Ref Range: 10 - 54 U/L 33 AST Latest Ref Range: 14 - 40 U/L 36 Anion Gap Latest Ref Range: 9 - 18 mmol/L 13 eGFR- Unknown >60 eGFR-All Other Races Latest Units: . 52 Vitamin D 25 Hydroxy Latest Ref Range: 31.0 - 80.0 ng/mL 28. 0 (L) Hemoglobin A1C Latest Ref Range: 4.3 - 5.6 % 6.8 (H) Estimated Average Glucose Latest Units: mg/dL 148 INR Home CoaguChek Latest Ref Range: 2.0 - 3.0 3.8 (A) ASSESSMENT: acute gastroenterits diabetes mellitus--at goal hypertension--at goal hyperllipidemia--at goal morbid obesity--some wt loss atrial fib/flutter--presently in reg rhythm ch. anticoagulation--high INR CKD III--stable GFR 52 PLAN: healthy weight losing diet and regular exercise eat less sugar, bread, potato, pasta, rice, corn, corn syrup, saturated fats daily salad and eat more green vegetables follow INR return to office 6 mos with labs expect diarrhea to resolve w/i 2-3 days notify office if not improving FEDERICO Alatorre MD, III MD 04/28/2019 11:08 AM Signed PLAN: healthy weight losing diet and regular exercise eat less sugar, bread, potato, pasta, rice, corn, corn syrup, saturated fats daily salad and eat more green vegetables follow INR return to office 6 mos with labs expect diarrhea to resolve w/i 2-3 days notify office if not improving Morgan Valdez III MD Referring Provider: MORGAN VALDEZ III [[id number]] Allergies As of Date: 04/28/2019 Noted Allergy Reaction MORPHINE 02/28/2005 ROCEPHIN (CEFTRIAXONE SODIUM) 06/20/2014 14 - Other: See Com ments Comments: Hot flashes; redness to skin Date Reviewed: 04/28/2019 Reviewed by: [facility]) JAZZY Carpenter - Fully Assessed Reason for Visit: 3 month check up [Other] Primary Visit Diagnosis:Type 2 diabetes mellitus with st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, with long-term current use of insulin (HCC) [E11.22, N18.3, Z79.4] Other Visit Diagnoses:Paroxysmal atrial fibrillation (HCC) [ I48.0] Hyperlipidemia LDL goal <100 [E78.5] Anticoagulated on Coumadin [Z79.01] Atrial flutter, unspecified type (HCC) [I48.92] Essential hypertension [I10] Morbid obesity (HCC) [E66.01] Acute gastroenteritis [K52.9] Order(s):ALBUMIN/CREAT RATIO RND UR [SQUACR] Order #: [id number] FUTURE HGB A1C [QZRQV4O] Order #: [id number] FUTURE LIPID PANEL BASIC [SQLIPB] Order #: [id number] FUTURE COMP METABOLIC PANEL [SQCMP] Order #: [id number] FUTURE Prescriptions as of 04/28/2019 Sig: FUROSEMIDE 40 MG TABLET Take 1 tablet by mouth twice * ERGOCALCIFEROL (VITAMIN D2) 1* Take 1 capsule by mouth one t * TRAZODONE 50 MG TABLET Take 1 tablet by mouth daily * ROPINIROLE 0.5 MG TABLET Take 1 tablet by mouth daily * WARFARIN 3 MG TABLET 6 mg daily INSULIN LISPRO (U-100) 100 UN* 18 units with breakfast, 17 u * LISINOPRIL 20 MG TABLET Take 1 tablet by mouth once d* BIPAP Initiate BiPAP @ 24/18 cm of * FLASH GLUCOSE SENSOR KIT 1 Each four times daily. INSULIN NPH ISOPHANE U-100 HU* 32 units subcutaneous once da * CLOPIDOGREL 75 MG TABLET Take 1 tablet by mouth once d* INSULIN SYRINGE U-100 WITH NE* 1 Each three times daily. BACK BRACE 1 Device once daily as needed* AMIODARONE 200 MG TABLET Take 1 tablet by mouth once d* SPIRONOLACTONE 25 MG TABLET Take 1 tablet by mouth once d* AMLODIPINE 10 MG TABLET Take 0.5 tablets by mouth onc* CARVEDILOL 3.125 MG TABLET Take 1 tablet by mouth twice * ISOSORBIDE MONONITRATE ER 30 * Take 1 tablet by mouth once d * BLOOD SUGAR DIAGNOSTIC STRIPS Use as instructed to check bl* RANOLAZINE ER 1,000 MG TABLET* Take 1 tablet by mouth twice * FENOFIBRATE NANOCRYSTALLIZED * Take 1 tablet by mouth once d * PANTOPRAZOLE 40 MG TABLET,DEL* Take 40 mg by mouth once ajay * LANCETS Use with Onetouch Glucometer * ASPIRIN 81 MG TABLET Take 1 tablet by mouth once d* CRESTOR 40 MG TABLET Take one(1) tablet daily. 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/2007 Type 2 diabetes mellitus, uncontrolled (HCC) [E*02/16/2008 1 04/21/2014 ESOPHAGEAL REFLUX [K21.9] 03/06/2008 Benign Neoplasm of Colon [D12.6] 02/21/2009 Labyrinthitis [H83.09] 02/05/2010 06/07/2014 Dermatophytosis of nail [B35.1] 06/05/2011 Atrial fibrillation [I48.91] 07/03/2011 Anticoagulated on Coumadin [Z79.01] 07/03/2011 Chronic diarrhea [K52.9] 09/16/2011 06/07/2014 Class 2 severe obesity due to excess calories w*09/16/2011 Stasis dermatitis of both legs [I87.2] 04/05/2013 Foot callus [L84] 10/04/2014 Subsequent non-ST elevation (NSTEMI) myocardial*12/25/2014 Syncope [R55] 02/19/2015 Hyperlipidemia LDL goal <100 [E78.5] 02/19/2015 ASHD (arteriosclerotic heart disease) [I25.10] 02/19/2015 Neurocardiogenic syncope [R55] 03/01/2015 Dysphagia [R13.10] 03/01/2015 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 Balanitis [N48.1] 11/16/2016 Coronary angioplasty status [Z98.61] 11/16/2016 Elevated troponin I level [R79.89] 01/29/2013 More... Family history of cerebrovascular accident (CVA*01/26/2018 History of deep venous thrombosis [Z86.718] 01/26/2018 History of non-ST elevation myocardial infarcti*01/26/2018 Ischemic cardiomyopathy [I25.5] 11/20/2017 Leukocytosis [D72.829] 01/29/2013 More... JESSICA (obstructive sleep apnea) [G47.33] 07/26/2018 RLS (restless legs syndrome) [G25.81] 07/28/2018 Localized swelling, mass and lump, neck [R22.1] 07/28/2018 Acute on chronic systolic congestive heart fail*12/17/2018 Other instructions from your clinician: PLAN: healthy weight losing diet and regular exercise eat less sugar, bread, potato, pasta, rice, corn, corn syrup , saturated fats daily salad and eat more green vegetables follow INR return to office 6 mos with labs expect diarrhea to resolve w/i 2-3 days notify office if not improving Morgan Valdez III MD Encounter Status:Closed by MORGAN VALDEZ III, MD on 04/28/19 vitamin d 25 hydroxy on 2019-04-21 Vitamin D 25 Hydroxy 28.0 31.0-80.0 ng/mL Low 0 [facility] ([id number]) Comment: Result Comment: Classificati on of 25 [place] Vitamin D status: Insufficiency/Moderate Defic iency: < or = 30 ng/mL Sufficiency/Optimal Levels: 31 to 80 ng/mL Toxicity: > 100 ng/mL Test performed by chemilumin escent immunoassay. Performed By: #### VITD, HBA 1C, CMP #### [facility] [address] [place], [place] [address] hemoglobin a1c on HbA1c (Bld) [Mass fraction] 6.8 4.3-5.6 % High [facility] (16813) Comment: Result Comment: [place] Dominique betes Association guidelines indicate that patients with HgbA1c in the range 5.7-6.4% are at increased risk for development of diabetes, and intervention by lifestyle modification may be beneficial. HgbA1c greater o r equal to 6.5% is considered diagnostic of diabetes. Performed By: #### VITD, HBA 1C, CMP ####[facility] [address] [place], [place] [address] HbA1c (Bld) [Mass fraction] 148 mg/dL Normal [facility] (37187) Comment: Result Comment: eAG: (Wilnera devin average glucose) is a calculated value from HgbA1c and is bank representative of the average blood glucose level in the last 2-3 month period. Performed By: #### VITD, HBA 1C, CMP ####[place] [address] [place] [address] [phone] comp metabolic panel on 2019-04-21 Albumin [Mass/Vol] 4.5 3.9-4.9 g/dL Normal 04-21-2019 [facility] ([id number]) Comment: Performed By: #### VITD, HBA 1C, CMP ####[place] [address] [place] [address] ALP [Catalytic activity/Vol] 51 38-113 U/L Normal 0 04-21-2019 [facility] (58203) Comment: Performed By: #### VITD, HBA 1C, CMP ####[place] [address] [place] [address] [phone] ALT [Catalytic activity/Vol] 33 10-54 U/L Normal 0 04-21-2019 [facility] (00997) Comment: Performed By: #### VITD, HBA 1C, CMP ####[place] [address] [place] [address] Anion gap [Moles/Vol] 13 9-18 mmol/L Normal 04-21-19 [facility] (54087) Comment: Performed By: #### VITD, HBA 1C, CMP ####[place] [address] [place] [address] [phone] AST [Catalytic activity/Vol] 36 14-40 U/L Normal 0 04-21-2019 [facility] ([id number]) Comment: Performed By: #### VITD, HBA 1C, CMP ####[place] [address] [place] [address] [phone] Bilirubin [Mass/Vol] 0.6 0.2-1.3 mg/dL Normal 0 [facility] (02958) Comment: Performed By: #### VITD, HBA 1C, CMP ####[place] [address] [place] [address] [phone] Calcium [Mass/Vol] 9.3 8.5-10.2 mg/dL Normal 04-21-2019 [facility] ([id number]) Comment: Performed By: #### VITD, HBA 1C, CMP ####[place] [address] [place] [address] [phone] Chloride [Moles/Vol] 98 97-105 mmol/L Normal 0 [facility] (37555) Comment: Performed By: #### VITD, HBA 1C, CMP ####[place] [address] [place] [address] [phone] CO2 [Moles/Vol] 27 22-30 mmol/L Normal 04-21-2019 [facility] (17123) Comment: Performed By: #### VITD, HBA 1C, CMP ####[place] [address] [place] [address] [phone] Creatinine [Mass/Vol] 1.35 0.73-1.22 mg/dL High 04-21-19 20 [facility] (48363) Comment: Performed By: #### VITD, HBA 1C, CMP ####[place] [address] [place] [address] [phone] eGFR- Amer. >60 Normal 04-21-2019 [facility] (93485) Comment: Performed By: #### VITD, HBA 1C, CMP ####[place] [address] [place] [address] [phone] GFR/1.73 sq M predicted among 52 . Normal 04-21-2019 [facility] non-blacks MDRD (S/P/Bld) [Vol (32143) rate/Area] Comment: Result Comment: eGFR (Estima devin GFR) Units of measure: mL/min/1.73 meters squared eGFR is derived from the ree xpressed MDRD Study equation using the following parameters: serum creatinine, age, gender and race. The creatinine assay has been calibrated to be traceable to IDMS. An eGFR <60 mL/min/1.73m2 fo r >3 months is consistent with chronic kidney disease. Refer to KDOQI guidelines for clinical interpretation. In patients with unstable re nal function, e.g. those with acute kidney injury, the eGFR may not accurately reflect actual GFR. Performed By: #### VITD, HBA 1C, CMP ####[facility] [place] [address] [phone] Glucose [Mass/Vol] 185 74-99 mg/dL High 04-21-2019 [facility] (20782) Comment: Result Comment: The [place] Diabetes Association (ADA) provides guidance for cutoff values for fasting glucose and random glucose. The ADA defines fasting as no caloric intake for at least 8 hours. Fas ting plasma glucose results between 100 to 125 mg/dL indicate increased risk for diabetes (prediabetes). Fasting plasma glucose resul ts greater than or equal to 126 mg/dL meet the criteria for diagnosis of diabetes. In the absence of unequivocal hyperglycemia, results should be confirmed by repeat testing. In a patient with classic s ymptoms of hyperglycemia or hyperglycemic crisis, random plasma glucose results greater than or equal to 200 mg/dL meet the criteria for diagnosis of diabetes. Reference: Standards of [facility] Care in Diabetes 2016, [place] Diabetes Association. Diabetes Care. 2016.39(Suppl 1). Performed By: #### VITD, HBA 1C, CMP ####[facility] [address] [place] [address] [phone] Potassium [Moles/Vol] 4.6 3.7-5.1 mmol/L Normal 04-21-19 [facility] (12611) Comment: Performed By: #### VITD, HBA 1C, CMP ####[facility] [address] [place] [address] Protein [Mass/Vol] 7.1 6.3-8.0 g/dL Normal 04-21-2019 [facility] (35568) Comment: Performed By: #### VITD, HBA 1C, CMP ####[facility] [address] [place] [address] [phone] Sodium [Moles/Vol] 138 136-144 mmol/L Normal 04-21-2019 [facility] (80591) Comment: Performed By: #### VITD, HBA 1C, CMP ####[facility] [address] [place] [address] [phone] Urea nitrogen [Mass/Vol] 25 9-24 mg/dL High 04-21 [facility] (62173) Comment: Performed By: #### VITD, HBA 1C, CMP ####[facility] [place] [address] [phone] progress on 2019-03 PROGRESS HNO ID: [id number] Normal 04-19-2019 [facility] Author: Jeffy Fontenot (Rn) [place] ([id number]) Service: ? Author Type: Registered Nurse Type: Progress Notes Filed: 04/19/2019 5:41 PM Note Text: PRIMARY CARE COORDINATION PRE-VISIT ASSESSMENT Provider Action/FYI: 1. Spk with Pt left eye redness improve, Pt noted did not fi ll prescription given in urgent care, eye improved on its own. Pt denies drainage or fever 2. Pt reports chronic Sob is aggravating and makes it diffic ult to do anything, Pt has intermittent swelling in feet and ankles, n otes compression stockings are not really effective for the swell ing. 3. Pt reports takes medication as directed 4. Pt has bruising on arms, denies bleeding from any site 5. Pt will have labs drawn prior to appt with Dr. Valdez on 6. Pt reports BS average 149, has episodes of Hypoglycemia, reviewed [facility] Hypoglycemia treatment, Pt verbalized understanding Patient has been identified by name and date of . Next Office Visit: 04/28/2019 Last Office Visit Plan/Progress: 01/26/2019 Patient Concerns: Pt denies needs Medication Review: Address in future encounter Health Maintenance: SHINGRIX VACCINE(1 of 2) due on 10/20/1995 Interventions/PCC Plan of Care: Corie Bardales RN April 19, 2019 cnptoutreach on CNPTOUTREACH Patient Outreach (FAMPWS) Normal 0 04-19-2019 [place] [facility] LOVELY DEVI ([id number]) 1945 [facility] Date Time Provider Department ([id number]) 04/19/19 JEFFY FONTENOT (DRAGAN) FAMPWS During your visit today, we recorded the following informati on about you: Corie Bardales RN 04/19/2019 5:41 PM Signed PRIMARY CARE COORDINATION PRE-VISIT ASSESSMENT Provider Action/FYI: 1. Spk with Pt left eye redness improve, Pt noted did not fill prescription given in urgent care, eye improved on its own. Pt denies radha inage or fever 2. Pt reports chronic Sob is aggravating and makes it difficult to do anything, Pt has intermittent swelling in feet and ankles, notes compression stockings are not really effective for the swelling. 3. Pt reports takes medication as directed 4. Pt has bruising on arms, denies bleeding from any site 5. Pt will have labs drawn prior to appt with Dr. Valdez on 6. Pt reports BS average 149, has episodes of Hypoglycemia, reviewed [facility] Hypoglycemia treatment, Pt verbalized understanding Patient has been identified by name and date of . 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 INSULIN NPH ISOPHANE U-100 HU* 32 units subcutaneous once da * CLOPIDOGREL 75 MG TABLET Take 1 tablet by mouth once d* INSULIN SYRINGE U-100 WITH NE* 1 Each three times daily. BACK BRACE 1 Device once daily as needed* AMIODARONE 200 MG TABLET Take 1 tablet by mouth once d* SPIRONOLACTONE 25 MG TABLET Take 1 tablet by mouth once d* AMLODIPINE 10 MG TABLET Take 0.5 tablets by mouth onc* CARVEDILOL 3.125 MG TABLET Take 1 tablet by mouth twice * ISOSORBIDE MONONITRATE ER 30 * Take 1 tablet by mouth once d * BLOOD SUGAR DIAGNOSTIC STRIPS Use as instructed to check bl* RANOLAZINE ER 1,000 MG TABLET* Take 1 tablet by mouth twice * FENOFIBRATE NANOCRYSTALLIZED * Take 1 tablet by mouth once d * PANTOPRAZOLE 40 MG TABLET,DEL* Take 40 mg by mouth once ajay * LANCETS Use with Onetouch Glucometer * ASPIRIN 81 MG TABLET Take 1 tablet by mouth once d* CRESTOR 40 MG TABLET Take one(1) tablet daily. 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/2007 Type 2 diabetes mellitus, uncontrolled (HCC) [E*02/16/2008 1 04/21/2014 ESOPHAGEAL REFLUX [K21.9] 03/06/2008 Benign Neoplasm of Colon [D12.6] 02/21/2009 Labyrinthitis [H83.09] 02/05/2010 06/07/2014 Dermatophytosis of nail [B35.1] 06/05/2011 Atrial fibrillation [I48.91] 07/03/2011 Anticoagulated on Coumadin [Z79.01] 07/03/2011 Chronic diarrhea [K52.9] 09/16/2011 06/07/2014 Class 2 severe obesity due to excess calories w*09/16/2011 Stasis dermatitis of both legs [I87.2] 04/05/2013 Foot callus [L84] 10/04/2014 Subsequent non-ST elevation (NSTEMI) myocardial*12/25/2014 Syncope [R55] 02/19/2015 Hyperlipidemia LDL goal <100 [E78.5] 02/19/2015 ASHD (arteriosclerotic heart disease) [I25.10] 02/19/2015 Neurocardiogenic syncope [R55] 03/01/2015 Dysphagia [R13.10] 03/01/2015 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 Balanitis [N48.1] 11/16/2016 Coronary angioplasty status [Z98.61] 11/16/2016 Elevated troponin I level [R79.89] 01/29/2013 More... Family history of cerebrovascular accident (CVA*01/26/2018 History of deep venous thrombosis [Z86.718] 01/26/2018 History of non-ST elevation myocardial infarcti*01/26/2018 Ischemic cardiomyopathy [I25.5] 11/20/2017 Leukocytosis [D72.829] 01/29/2013 More... JESSICA (obstructive sleep apnea) [G47.33] 07/26/2018 RLS (restless legs syndrome) [G25.81] 07/28/2018 Localized swelling, mass and lump, neck [R22.1] 07/28/2018 Acute on chronic systolic congestive heart fail*12/17/2018 Encounter Status:Closed by CORIE BARDALES on 04/19/19 obsolete on 2019-03 OBSOLETE Refill (FAMPWS) Normal 04-18-2019 [facility] LOVELY DEVI ([id number]) [address] [facility] Time Provider Department ([id number]) 04/18/19 DENIZ GARSIA FAMPWS During your visit today, we recorded the following informati on about you: Eufemia Maurice LPN 04/19/2019 12:35 PM Signed Last refill 02/17/19 Qty: 60 with 1 refill Last ov 01/26/19 Has appt 04/28/19 Eufemia Maurice LPN Allergies As of Date: 04/18/2019 Noted Allergy Reaction MORPHINE 02/28/2005 ROCEPHIN (CEFTRIAXONE SODIUM) 06/20/2014 14 - Other: See Com ments Comments: Hot flashes; redness to skin Date Reviewed: 04/05/2019 Reviewed by: Ariana Arias - Fully Assessed Reason for Visit: Refill Request [94] Visit Diagnosis:Acute on chronic systolic congestive heart f ailure (HCC) [I50.23] Order(s):furosemide (LASIX) 40 mg tabletTake 1 tablet by angela th twice daily.Disp: 60 tabletRfl: 11 Prescriptions as of 04/18/2019 Sig: FUROSEMIDE 40 MG TABLET Take 1 tablet by mouth twice * ERGOCALCIFEROL (VITAMIN D2) 1* Take 1 capsule by mouth one t * TRAZODONE 50 MG TABLET Take 1 tablet by mouth daily * ROPINIROLE 0.5 MG TABLET Take 1 tablet by mouth daily * WARFARIN 3 MG TABLET 6 mg daily INSULIN LISPRO (U-100) 100 UN* 18 units with breakfast, 17 u * LISINOPRIL 20 MG TABLET Take 1 tablet by mouth once d* BIPAP Initiate BiPAP @ 24/18 cm of * FLASH GLUCOSE SENSOR KIT 1 Each four times daily. INSULIN NPH ISOPHANE U-100 HU* 32 units subcutaneous once da * CLOPIDOGREL 75 MG TABLET Take 1 tablet by mouth once d* INSULIN SYRINGE U-100 WITH NE* 1 Each three times daily. BACK BRACE 1 Device once daily as needed* AMIODARONE 200 MG TABLET Take 1 tablet by mouth once d* SPIRONOLACTONE 25 MG TABLET Take 1 tablet by mouth once d* AMLODIPINE 10 MG TABLET Take 0.5 tablets by mouth onc* CARVEDILOL 3.125 MG TABLET Take 1 tablet by mouth twice * ISOSORBIDE MONONITRATE ER 30 * Take 1 tablet by mouth once d * BLOOD SUGAR DIAGNOSTIC STRIPS Use as instructed to check bl* RANOLAZINE ER 1,000 MG TABLET* Take 1 tablet by mouth twice * FENOFIBRATE NANOCRYSTALLIZED * Take 1 tablet by mouth once d * PANTOPRAZOLE 40 MG TABLET,DEL* Take 40 mg by mouth once ajay * LANCETS Use with Onetouch Glucometer * ASPIRIN 81 MG TABLET Take 1 tablet by mouth once d* CRESTOR 40 MG TABLET Take one(1) tablet daily. 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/16/2007 Type 2 diabetes mellitus, uncontrolled (HCC) [E*02/16/2008 1 04/21/2014 ESOPHAGEAL REFLUX [K21.9] 03/06/2008 Benign Neoplasm of Colon [D12.6] 02/21/2009 Labyrinthitis [H83.09] 02/05/2010 06/07/2014 Dermatophytosis of nail [B35.1] 06/05/2011 Atrial fibrillation [I48.91] 07/03/2011 Anticoagulated on Coumadin [Z79.01] 07/03/2011 Chronic diarrhea [K52.9] 09/16/2011 06/07/2014 Class 2 severe obesity due to excess calories w*09/16/2011 Stasis dermatitis of both legs [I87.2] 04/05/2013 Foot callus [L84] 10/04/2014 Subsequent non-ST elevation (NSTEMI) myocardial*12/25/2014 Syncope [R55] 02/19/2015 Hyperlipidemia LDL goal <100 [E78.5] 02/19/2015 ASHD (arteriosclerotic heart disease) [I25.10] 02/19/2015 Neurocardiogenic syncope [R55] 03/01/2015 Dysphagia [R13.10] 03/01/2015 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 Balanitis [N48.1] 11/16/2016 Coronary angioplasty status [Z98.61] 11/16/2016 Elevated troponin I level [R79.89] 01/29/2013 More... Family history of cerebrovascular accident (CVA*01/26/2018 History of deep venous thrombosis [Z86.718] 01/26/2018 History of non-ST elevation myocardial infarcti*01/26/2018 Ischemic cardiomyopathy [I25.5] 11/20/2017 Leukocytosis [D72.829] 01/29/2013 More... JESSICA (obstructive sleep apnea) [G47.33] 07/26/2018 RLS (restless legs syndrome) [G25.81] 07/28/2018 Localized swelling, mass and lump, neck [R22.1] 07/28/2018 Acute on chronic systolic congestive heart fail*12/17/2018 Prescriptions ordered this encounter Disp Refills Start End FUROSEMIDE 40 MG TABLET 60 t* 11 04/19/2019 Route: ORAL Sig: Take 1 tablet by mouth twice daily. Medications Discontinued During This Encounter furosemide (LASIX) 40 mg tablet 60 t* 1 02/17/2019 04/19/2019 Route: ORAL Sig: Take 1 tablet by mouth twice daily. Disc: Reason for discontinue is not on file. Encounter Status:Closed by MORGAN VALDEZ III, MD on 04/19/19 progress on 2019-03 PROGRESS HNO ID: [id number] Normal 04-05-2019 [facility] Author: Ariana Arias [place] ([id number]) Service: ? Author Type: Nurse Practitioner Type: Progress Notes Filed: 04/05/2019 11:52 AM Note Text: Subjective HPI Lovely Devi is a 73 year old male who presents wi th left eye redness and irritation for the last day. He denies any eye p ain, vision changes, eye drainage, or fever. No URI symptoms. History of cataracts with removal per patient. No known sick contacts. Review of Systems Constitutional: Negative for chills, fever and malaise/fatig ue. HENT: Negative for congestion. Eyes: Positive for discharge and redness. Negative for blurr ed vision, double vision, photophobia and pain. Respiratory: Negative for cough. Skin: Negative for itching and rash. BP 130/68 Pulse 60 Temp 36.4 ?C (97.5 ?F) (Tympanic) R johnny 16 Wt 121.3 kg (267 lb 6.4 oz) BMI 40.66 kg/m? PAST MEDICAL HISTORY Diagnosis Date - ASHD (arteriosclerotic heart disease) 02/19/2015 - Atrial fibrillation (HCC) 07/03/2011 - Automatic implantable cardiac defibrillator in situ - Petit's esophagus with esophagitis 03/01/2015 - Benign neoplasm of colon - Chronic diarrhea 09/16/2011 - Coronary atherosclerosis of unspecified type of vessel, na tive or graft s/p PR in 1985 - Diverticulosis of colon (without mention of hemorrhage) - Duodenitis without mention of hemorrhage - Dysphagia 03/01/2015 - Facet arthritis of lumbar region 07/14/2017 - GERD (gastroesophageal reflux disease) 06/10/12 - Heart attack (HCC) - Labyrinthitis 02/05/2010 - Neurocardiogenic syncope 03/01/2015 - Obesity 09/16/2011 - JESSICA treated with [facility] - Other and unspecified hyperlipidemia - Other specified forms of chronic ischemic heart disease - Paroxysmal ventricular tachycardia (HCC) - Snoring - Stroke (HCC) - Tinea of nail 01/13/2011 - Type 2 diabetes mellitus with stage 3 chronic kidney disea se, with long-term current use of insulin (HCC) 06/15/2017 - Unspecified essential hypertension PAST SURGICAL HISTORY Procedure Laterality Date - [facility]2017 Dr. Anthony-repeat 3 years-11/2020 - COLONOSCOPY W/BX 02/21/09 - EGD W/O OR W/BRUSH/WASH EGD - EGD W/O OR W/BRUSH/WASH 02/16/08 EGD [facility] H-pylori negative - EGD W/O OR W/BRUSH/WASH 05/24/15 EGD - EGD W/O OR W/BRUSH/WASH 12/21/2017 Dr. Anthony-repeat 3 years-11/2020 - HEART CATHETERIZATION 12/15/2014 [facility] - see scanned documents - HEART SURGERY HX - LEFT HEART CATH,PERCUTANEOUS Cardiac cath, L heart - LEFT HEART CATH,PERCUTANEOUS 06/20/11 Cardiac cath, L heart - PERC TRANSL COR ANGIO Percutaneous Transluminal Coronary Angio Status ALLERGIES Morphine; Rocephin [Ceftriaxone Sodium] MEDICATIONS ergocalciferol 50,000 unit capsule (VITAMIN D2, DRISDOL) Mynor e 1 capsule by mouth one time a week. traZODone (DESYREL) 50 mg tablet Take 1 tablet by mouth ajay y at bedtime. rOPINIRole (REQUIP) 0.5 mg tablet Take 1 tablet by mouth rustam ly at bedtime. warfarin (COUMADIN) 3 mg tablet 6 mg daily furosemide (LASIX) 40 mg tablet Take 1 tablet by mouth twice daily. insulin lispro (HUMALOG U-100 INSULIN) 100 unit/mL injection 18 units with breakfast, 17 units at lunch, and 24 units with supper. lisinopril (ZESTRIL, PRINIVIL) 20 mg tablet Take 1 tablet by mouth once daily. BIPAP Initiate BiPAP @ 24/18 cm of water with humidification . Mask (per patient preference), chin strap, filters, tubing / heated tu jin, heated humidity and lifetime supplies. Dx. JESSICA G47.33 327.23 - fax compliance download to [phone] flash glucose sensor (FREESTYLE ANITRA 14 DAY SENSOR) kit 1 E ach four times daily. insulin NPH human (HUMULIN N NPH U-100 INSULIN) injection 32 units subcutaneous once daily before breakfast and 32 units at bed time clopidogrel (PLAVIX) 75 mg tablet Take 1 tablet by mouth onc e daily. Insulin Syringe-Needle U-100 (BD ULTRAFINE INSULIN) 1 mL 31 gauge x 5/16 syrg 1 Each three times daily. Back Brace misc 1 Device once daily as needed. size large amiodarone (PACERONE) 200 mg tablet Take 1 tablet by mouth o nce daily. spironolactone (ALDACTONE) 25 mg tablet Take 1 tablet by angela th once daily. amLODIPine (NORVASC) 10 mg tablet Take 0.5 tablets by mouth once daily. carvedilol (COREG) 3.125 mg tablet Take 1 tablet by mouth tw ice daily. for one week starting on 06/20/16 then will be taking 6.25 x 2 da alisha . isosorbide mononitrate ER (IMDUR) 30 mg 24 hr tablet Take 1 tablet by mouth once daily. blood sugar diagnostic ([employer] BLOOD GLUCOSE SYSTEM) test s trip Use as instructed to check blood sugar 3 to 4 times daily DM: yes I nsulin: yes DX:11.9 ranolazine SR (RANEXA) 1,000 mg Tb12 Take 1 tablet by mouth twice daily. fenofibrate nanocrystallized (TRICOR) 145 mg tablet Take 1 t ablet by mouth once daily. pantoprazole DR (PROTONIX) 40 mg tablet Take 40 mg by mouth once daily. Lancets (ONE TOUCH ULTRASOFT LANCETS) lancets Use with [facility] Glucometer as directed Aspirin 81 mg ORAL Tab Take 1 tablet by mouth once daily. Ta ke with food. CRESTOR 40 MG TAB Take one(1) tablet daily. NITROGLYCERIN 0.3 MG SUBLINGUAL TAB as necessary FAMILY HISTORY Problem Relation Age of Onset - Stroke Mother - Heart Mother - Cancer Father prostate - Heart Father - Breast Cancer Sister - Breast Cancer Sister - Diabetes Sister - Diabetes Brother - Diabetes Brother Social History Tobacco Use - Smoking status: Former Smoker Years: 15.00 Types: Cigars Last attempt to quit: 08/12/2007 Years since quittin.6 - Smokeless tobacco: Never Used - Tobacco comment: 2-3 per day Substance Use Topics - Alcohol use: No - Drug use: No Objective Physical Exam Constitutional: He is oriented to person, place, and time an d well-developed, well-nourished, and in no distress. HENT: Head: Normocephalic and atraumatic. Eyes: Pupils are equal, round, and reactive to light. EOM ar e normal. Right eye exhibits no discharge. Left eye exhibits no discha rge. Right conjunctiva is not injected. Right conjunctiva has no hemorr daryl. Left conjunctiva is injected. Left conjunctiva has no hemorrhage. Cardiovascular: Normal rate, regular rhythm, normal heart so unds and intact distal pulses. Exam reveals no gallop and no friction rub. No murmur heard. Pulmonary/Chest: Effort normal and breath sounds normal. No respiratory distress. He has no wheezes. He has no rales. He exhibits no tenderness. Musculoskeletal: General: No edema. Lymphadenopathy: He has no cervical adenopathy. Neurological: He is alert and oriented to person, place, and time. Gait normal. Skin: Skin is warm and dry. No rash noted. He is not diaphor etic. ASSESSMENT/PLAN: 1. Acute conjunctivitis of left eye, unspecified acute conju nctivitis type - ICD9: 372.00, ICD10: H10.32 - likely viral - see medication orders - OFLOXACIN 0.3 % EYE DROPS printed Rx to start in 2-3 days if no better or earlier if discharge from eye develops - course and contagiousness issues discussed, including hand washing. - Instructed to call draw frame tender or go to ED if high fev er, development of periorbital redness or swelling, eye pain, vi sual changes, concerns or if symptoms persist. All of the above discussed with the patient in detail. Ash rossi is in agreement with the above plan. Treatment and plan of care di scussed including course of treatment, possible medication side effe cts, and what to watch for in regards to worsening signs and symptoms. All questions addressed. Ariana Arias APRN.ROLL TESTER cnov on 2019-04-05 CNOV Office Visit ([facility]) Normal 04-05-19 [facility] LOVELY DEVI ([id number]) 1945 [place] Date Time Provider Department ([id number]) 04/05/19 11:15 AM ARIANA ARIAS [facility] During your visit today, we recorded the following informati on about you: Temperature Pulse Respiration Blood pressure 97.5 degrees 60/minute 16/minute 130/68 Weight 121.3 kg Ariana Arias APRN.ELBA 04/05/2019 11:52 AM Signed Subjective HPI Lovely Devi is a 73 year old male who presents with left eye redness and irritation for the last day. He denies any eye dominique n, vision changes, eye drainage, or fever. No URI symptoms. History of cataracts wi th removal per patient. No known sick contacts. Review of Systems Constitutional: Negative for chills, fever and malaise/fatig ue. HENT: Negative for congestion. Eyes: Positive for discharge and redness. Negati ve for blurred vision, double vision, photophobia and pain. Respiratory: Negative for cough. Skin: Negative for itching and rash. BP 130/68 Pulse 60 Temp 36.4 ?C (97.5 ?F) (Tympanic) R johnny 16 Wt 121.3 kg (267 lb 6.4 oz) BMI 40.66 kg/m? PAST MEDICAL HISTORY Diagnosis Date - ASHD (arteriosclerotic heart disease) 02/19/2015 - Atrial fibrillation (HCC) 07/03/2011 - Automatic implantable cardiac defibrillator in situ - Petit's esophagus with esophagitis 03/01/2015 - Benign neoplasm of colon - Chronic diarrhea 09/16/2011 - Coronary atherosclerosis of unspecified type of vessel, na tive or graft s/p PR in 1985 - Diverticulosis of colon (without mention of hemorrhage) - Duodenitis without mention of hemorrhage - Dysphagia 03/01/2015 - Facet arthritis of lumbar region 07/14/2017 - GERD (gastroesophageal reflux disease) 06/10/12 - Heart attack (HCC) - Labyrinthitis 02/05/2010 - Neurocardiogenic syncope 03/01/2015 - Obesity 09/16/2011 - JESSICA treated with [facility] - Other and unspecified hyperlipidemia - Other specified forms of chronic ischemic heart disease - Paroxysmal ventricular tachycardia (HCC) - Snoring - Stroke (HCC) - Tinea of nail 01/13/2011 - Type 2 diabetes mellitus with st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, with long-term current use of insulin (HCC) 06/15/2017 - Unspecified essential hypertension PAST SURGICAL HISTORY Procedure Laterality Date - COLONOSCOP W/ OR W/O [facility] SPEC 12/21/2017 Dr. Anthony-repeat 3 years-11/2020 - COLONOSCOPY W/BX 02/21/09 - EGD W/O OR W/BRUSH/WASH EGD - EGD W/O [facility] - [facility] W/O OR W/BRUSH/WASH 05/24/15 EGD - EGD W/O OR W/BRUSH/WASH 12/21/2017 Dr. Anthony-repeat 3 years-11/2020 - HEART CATHETERIZATION 12/15/2014 [facility] - see scanned documents - HEART SURGERY HX - LEFT HEART CATH,PERCUTANEOUS Cardiac cath, L heart - LEFT HEART CATH,PERCUTANEOUS 06/20/11 Cardiac cath, L heart - PERC TRANSL COR ANGIO Percutaneous Transluminal Coronary Angio Status ALLERGIES Morphine; Rocephin [Ceftriaxone Sodium] MEDICATIONS ergocalciferol 50,000 unit capsule (VITAMIN D2, DRISDOL) Mynor e 1 capsule by mouth one time a week. traZODone (DESYREL) 50 mg tablet Take 1 tablet by mouth ajay y at bedtime. rOPINIRole (REQUIP) 0.5 mg tablet Take 1 tablet by mouth rustam ly at bedtime. warfarin (COUMADIN) 3 mg tablet 6 mg daily furosemide (LASIX) 40 mg tablet Take 1 tablet by mouth twice daily. insulin lispro (HUMALOG U-100 INSULIN) 100 unit/mL injection 18 units with breakfast, 17 units at lunch, and 24 units with supper. lisinopril (ZESTRIL, PRINIVIL) 20 mg tab let Take 1 tablet by mouth once daily. BIPAP Initiate BiPAP @ 24/18 cm of water with humidification . Mask (per patient preference), chin strap, filters, tubing / heated tu jin, heated humidity and lifetime supplies. Dx. JESSICA G47.33 327.23 - fax compliance download to [phone] flash glucose sensor (FREESTYLE ANITRA 14 DAY SENSOR) kit 1 E ach four times daily. insulin NPH human (HUMULIN N NPH U-100 INSULIN) injection 32 units subcutaneous once daily before breakfast and 32 units at bedtime clopidogrel (PLAVIX) 75 mg tablet Take 1 tablet by mouth onc e daily. Insulin Syringe-Needle U-100 (BD ULTRAFINE INSULIN) 1 mL 31 gauge x 5/16 syrg 1 Each three times daily. Back Brace misc 1 Device once daily as needed. size large amiodarone (PACERONE) 200 mg tablet Take 1 tablet by mouth o nce daily. spironolactone (ALDACTONE) 25 mg tablet Take 1 tablet by angela th once daily. amLODIPine (NORVASC) 10 mg tablet Take 0.5 tablets by mouth once daily. carvedilol (COREG) 3.125 mg tablet Take 1 tablet by mouth twice daily. for one week starting on 06/20/16 then will be taking 6.25 x 2 daily . isosorbide mononitrate ER (IMDUR) 30 mg 24 hr tablet Take 1 tablet by mouth once daily. blood sugar diagnostic ([employer] BLOOD GLUCOSE SYSTEM) test s trip Use as instructed to check blood ureña gar 3 to 4 times daily DM: yes Insulin: yes DX:11.9 ranolazine SR (RANEXA) 1,000 mg Tb12 Take 1 tablet by mouth twice daily. fenofibrate nanocrystallized (TRICOR) 145 mg tablet Take 1 tablet by mouth once daily. pantoprazole DR (PROTONIX) 40 mg tablet Take 40 mg by mouth once daily. Lancets (ONE TOUCH ULTRASOFT LANCETS) lancets Us e with [employer] Glucometer as directed Aspirin 81 mg ORAL Tab Take 1 tablet by mouth once daily. Ta ke with food. CRESTOR 40 MG TAB Take one(1) tablet daily. NITROGLYCERIN 0.3 MG SUBLINGUAL TAB as necessary FAMILY HISTORY Problem Relation Age of Onset - Stroke Mother - Heart Mother - Cancer Father prostate - Heart Father - Breast Cancer Sister - Breast Cancer Sister - Diabetes Sister - Diabetes Brother - Diabetes Brother Social History Tobacco Use - Smoking status: Former Smoker Years: 15.00 Types: Cigars Last attempt to quit: 08/12/2007 Years since quittin.6 - Smokeless tobacco: Never Used - Tobacco comment: 2-3 per day Substance Use Topics - Alcohol use: No - Drug use: No Objective Physical Exam Constitutional: He is oriented to person, place, and time and well-developed, well-nourished, and in no distress. HENT: Head: Normocephalic and atraumatic. Eyes: Pupils are equal, roun d, and reactive to light. EOM are normal. Right eye exhibits no discharge. Left eye exhibits no discharge. Right conjunctiva is not injected. Right conjunctiva has no hemorrhage. Left co njunctiva is injected. Left conjunctiva has no hemorrhage. Cardiovascular: Normal rate, regular rhythm, normal heart sounds and intact distal pulses. Exam reveals no gallop and no friction rub. No murmur heard. Pulmonary/Chest: Effort normal and breath sounds normal. No respiratory distress. He has no wheezes. He has no rales. He exhibits no tenderness. Musculoskeletal: General: No edema. Lymphadenopathy: He has no cervical adenopathy. Neurological: He is alert an d oriented to person, place, and time. Gait normal. Skin: Skin is warm and dry. No rash noted. He is not diaphor etic. ASSESSMENT/PLAN: 1. Acute conjunctivitis of left eye, unspecified acute conjunctivitis type - ICD9: 372.00, ICD10: H10.32 - likely viral - see medication orders - OFLOXACIN 0.3 % EYE DROPS printed Rx to start in 2-3 day s if no better or earlier if discharge from eye develops - course and contagiousness issues discussed, including hand washing. - Instructed to call draw frame tender or go to ED if high fever, development of periorbital redness or swelling, eye pain, visual changes, c oncerns or if symptoms persist. All of the above discussed with the jose luis ent in detail. Patient is in agreement with the above plan. Treatment and plan of care discussed including course of treatment, possible medication side effects, and what to watch for in regards to worsening signs and symptoms. All questions addressed. Ariana Arias APRN.ELBA Arias APRN.CNP 04/05/2019 11:35 AM Signed [facility] PATIENT INFO CONJUNCTIVITIS OVERVIEW Conjunctivitis, also called pinkeye, is defined as an in flammation of the conjunctiva. The conjunctiva is the thin membrane that lines the inner surface of the eyelids and the whites of the eyes (cordon d the sclera). Conjunctivitis can affect children and adults. The most common symptoms of conjunctivitis include a red eye and discharge. There are many potential cau ses of conjunctivitis, including bacterial or viral infections, allergies, or a non-specific conditi on (eg, a foreign body in the eye). All types of conjuncti vitis cause a red eye, although not everyone with a red eye has conjunctivitis. TYPES OF CONJUNCTIVITIS There are four main types of conjunctivitis: bacterial , viral, allergic, and non-specific. Most cases of infectious conjuncti vitis are viral in adults and children; however, bacterial conjunctivi tis is more common in children than in adults. Viral conjunctivitis ? Viral conjunctivitis is typically caused by a virus that can also cause the common cold. A person may have symp toms of conjunctivitis alone, or as part of a general cold syndrome, with swollen l ymph nodes (glands), fever, a sore throat, and runny nose. Viral conjunctivitis is highly contagious. It is spread by contact, usually with objects which have come into contact with the infected person's eye secretions. As examples, the virus can be transm itted when an infected person touches their eye and then touches anoth er surface (eg, door handle) or shares an object that has touched their eye (eg, a towel or pillow case). The most common symptoms of viral conjunctivitis include r edness, watery or mucus discharge, and a burning, dorinda, or gritty feeling in one eye. Some people have morning crusting followed by watery discha rge, perhaps with some scant mucus discharge throughout the day. The second eye usu ally becomes infected within 24 to 48 hours. There is no cure for viral conjunctivitis. Recovery can begi n within days, although the symptoms frequently get worse for the fir st three to five days, with gradual improvement ove r the following one to two weeks for a total course of two to three weeks. Some people experience mo rning crusting that continues for up to two weeks after the initial symptoms, although the daytime redness, irritation, and tearing should be much improved. Bacterial conjunctivitis ? B acterial conjunctivitis is highly contagious, often affecting multiple family members or children within a cla ssroom. Bacterial conjunctivitis is spread by contact, usu ally with objects which have come into contact with the infected person's eye secretion s. As examples, the virus can be transmitted when an infected person touches their eye and then touches another surface (eg, door handle) or shares an object that has touched their eye (eg, a towel or pillow case). The most common symptoms of bacterial co njunctivitis include redness and thick discharge from one eye, although both eyes can b ecome infected. The discharge may be yellow, white, or green, and it usually continu es to drain throughout the day. The affected eye often is stuck shut in the morni ng. Most types of bacterial conjunctivitis resolve q uickly and cause no permanent damage when treated with antibiotic eye drops or ointment Non-specific conjunctivitis ? It is possible to develop a red eye and discharge that is not caused by an infection or allergy. T he most common causes include one of the following. ? People with a dry eye may have chronic or intermittent redness or discharge. A person whose eyes are irrigated after a chemical splash may have redness and discharge. ? A person with a foreign body (eg, dust , eyelash) in the eye may have redness and discharge for 12 to 24 hours after the object is removed . All of these problems generally improve spontaneously within 24 hours. CONJUNCTIVITIS TREATMENT The treatment of conjunctivitis depends upon the cause. For this reason, it is important to have the correct diagnosis before treatment beg ins. Viral conjunctivitis treatment ? A topic al antihistamine/decongestant eye drop may help to relieve the itching and irritation o f viral conjunctivitis. These drops are available without a prescription in most pharmacie s. However, particular care must be taken to avoid s preading viral infections from one eye to the other ? apply drops o nly to affected eye and wash hands thoroughly after application. Similar to cold medicines, this treatment may reduce the symptoms but does not shorten the cou rse of the infection. Another option is to use warm or cool compresses, as needed. The irritation and discharge may get worse for three to five days before getting better, and symptoms can persist for two to three we eks. Bacterial conjunctivitis treatment ? Bacterial conjunctiviti s is usually treated with an antibiotic eye drop or o intment. When started early, treatment helps to shorten the duration of symptoms, although most felecia es do resolve spontaneously if no treatment is used. Adults ? Adults are usually treated with an antibiotic eye drop or ointment for five to seven days. Redness, irritation, and eye discharge s hould begin to improve within 24 to 48 hours. If there is no im provement or if the condition worsens within this time, th e person should be evaluated by an draw frame tender. Contact lens wearers ? People who wear c ontact lenses should be evaluated by a healthcare provider before treatment begins; thi s is to confirm the diagnosis of conjunctivitis and to be sure that another, m ore serious condition related to contact lens use (an infection of the cornea), is not pre sent. People who wear contact lens es should avoid wearing the lenses during the first 24 hours of treatment, or until the eye is no longer red. Th e contact case should be thrown away and the contacts disinfected ove rnight or replaced (if disposable). Return to work/school ? The safest approach to avoid spreadi ng viral and bacterial conjunctivitis to others is to stay home until there is no longer any discharge from the eye(s). H owever, this is not practical for most students and for those who work outside the home. Most daycar e centers and schools require that students receive 24 hours of eye drops or ointment be fore returning to school. This treatment helps to prevent the spread of bacterial conjunctivitis, but is not necessary or helpful for children with viral conj unctivitis. Viral conjunctivitis is similar to a cold because it sprea ds easily between people. Younger children, who may not remember to wash the ir hands or avoid touching their eyes, should probably not attend school until the discharge has resolved. Older students or adults may choose to attend school/work, although they should limit close contact with others. In addition, adults who have contact with the very old, th e very young, and people with a weakened immune system should limit contact wi th these susceptible individuals. Non-specific conjunctivitis treatment ? The conjunctiva heals quickly after it is injured, and non-specific conjunctivi tis usually resolves within a few days without any treatment. However, the eye may feel better fast er when it is treated with a lubricant, such as drops or ointments. These products are available without a prescription in most pharmacies. Preserv ative-free preparations are more expens paul and are necessary only for people with a severe case of dry eye and those who are allergic to preservatives. Lubricant drops can be used as often as hourly with no side effects. The ointment provides longer lasting relief but blurs vision temporarily. For this reason, some people use ointment only at bedtime. It may be worthwhile to switch brands if one brand of drop or ointment is irritating , since each preparation contains different active and inactive ingredien ts and preservatives. Antibiotic or steroid eye dr ops/ointments are not recommended unless there is a specific reason they are needed (eg, a bacterial infection o r inflammatory condition). Using these eitan tments when they are not needed can lead to serious complications. If the symptoms of conjunctivitis do not impr ove within two weeks, an examination with an draw frame tender may be recomme nded. CONJUNCTIVITIS PREVENTION Bacterial and viral conjunctivitis are both highly contagi ous and spread by direct contact with secretions or contact with contaminate d objects. Simple hygiene measures can help minimize transmission to others. ? Adults or children with bacterial or viral conjuncti vitis should not share handkerchiefs, tissues, towels, cosmetics, or bed sheets/pil lows with uninfected family or friends. ? Hand washing is an essential and highly effect paul way to prevent the spread of infection. Hands should be wet with water and plain soap, and rubbed together for 15 to 30 seconds. It is not necessary to use antibacterial hand soap. Teach children to wash their hands before and after ea ting and after touching the eyes, coughing, or sneezing. ? Alcohol-based hand rubs are a good alternative for d isinfecting hands if a sink is not available. Hand rubs should be spread over the entire surface of hands, fingers, and wrists u ntil dry, and may be used several times. These rubs can be used repeatedly without skin irritation or loss of ef fectiveness. Referring Provider: SELF [[id number]] Allergies As of Date: 04/05/2019 Noted Allergy Reaction MORPHINE 02/28/2005 ROCEPHIN (CEFTRIAXONE SODIUM) 06/20/2014 14 - Other: See Com ments Comments: Hot flashes; redness to skin Date Reviewed: 04/05/2019 Reviewed by: Ariana Arias - Fully Assessed Reason for Visit: Eye Problem [43] Cmt: red itchy left eye x 1 day Primary Visit Diagnosis:Acute conjunctivitis of left eye, unspecified acute conjunctivitis type [H10.32] Order(s):ofloxacin (OCUFLOX) 0.3 % ophthalmic so lutionUse 2 Drops in the left eye every 4 hours for 7 days.Disp: 1 BottleRfl: 0 Prescriptions as of 04/05/2019 Sig: ERGOCALCIFEROL (VITAMIN D2) 1* Take 1 capsule by mouth one t * TRAZODONE 50 MG TABLET Take 1 tablet by mouth daily * ROPINIROLE 0.5 MG TABLET Take 1 tablet by mouth daily * WARFARIN 3 MG TABLET 6 mg daily FUROSEMIDE 40 MG TABLET Take 1 tablet by mouth twice * INSULIN LISPRO (U-100) 100 UN* 18 units with breakfast, 17 u * LISINOPRIL 20 MG TABLET Take 1 tablet by mouth once d* BIPAP Initiate BiPAP @ 24/18 cm of * FLASH GLUCOSE SENSOR KIT 1 Each four times daily. INSULIN NPH ISOPHANE U-100 HU* 32 units subcutaneous once da * CLOPIDOGREL 75 MG TABLET Take 1 tablet by mouth once d* INSULIN SYRINGE U-100 WITH NE* 1 Each three times daily. BACK BRACE 1 Device once daily as needed* AMIODARONE 200 MG TABLET Take 1 tablet by mouth once d* SPIRONOLACTONE 25 MG TABLET Take 1 tablet by mouth once d* AMLODIPINE 10 MG TABLET Take 0.5 tablets by mouth onc* CARVEDILOL 3.125 MG TABLET Take 1 tablet by mouth twice * ISOSORBIDE MONONITRATE ER 30 * Take 1 tablet by mouth once d * BLOOD SUGAR DIAGNOSTIC STRIPS Use as instructed to check bl* RANOLAZINE ER 1,000 MG TABLET* Take 1 tablet by mouth twice * FENOFIBRATE NANOCRYSTALLIZED * Take 1 tablet by mouth once d * PANTOPRAZOLE 40 MG TABLET,DEL* Take 40 mg by mouth once ajay * LANCETS Use with Onetouch Glucometer * ASPIRIN 81 MG TABLET Take 1 tablet by mouth once d* CRESTOR 40 MG TABLET Take one(1) tablet daily. NITROGLYCERIN 0.3 MG SUBLINGU* as necessary OFLOXACIN 0.3 % EYE DROPS Use 2 Drops in the left eye e* Problem List As Of Date 04/05/2019 Noted Resolved CARDIOMEGALY [I51.7] Duodenitis without mention of hemorrhage [K29.8* 06/07/2014 Essential hypertension [I10] PAROX VENTRIC TACHYCARD [I47.2] Automatic implantable cardioverter-defibrillato* BPH with obstruction/lower urinary tract sympto*09/16/2007 Type 2 diabetes mellitus, uncontrolled (HCC) [E*02/16/2008 1 04/21/2014 ESOPHAGEAL REFLUX [K21.9] 03/06/2008 Benign Neoplasm of Colon [D12.6] 02/21/2009 Labyrinthitis [H83.09] 02/05/2010 06/07/2014 Dermatophytosis of nail [B35.1] 06/05/2011 Atrial fibrillation [I48.91] 07/03/2011 Anticoagulated on Coumadin [Z79.01] 07/03/2011 Chronic diarrhea [K52.9] 09/16/2011 06/07/2014 Class 2 severe obesity due to excess calories w*09/16/2011 Stasis dermatitis of both legs [I87.2] 04/05/2013 Foot callus [L84] 10/04/2014 Subsequent non-ST elevation (NSTEMI) myocardial*12/25/2014 Syncope [R55] 02/19/2015 Hyperlipidemia LDL goal <100 [E78.5] 02/19/2015 ASHD (arteriosclerotic heart disease) [I25.10] 02/19/2015 Neurocardiogenic syncope [R55] 03/01/2015 Dysphagia [R13.10] 03/01/2015 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 Balanitis [N48.1] 11/16/2016 Coronary angioplasty status [Z98.61] 11/16/2016 Elevated troponin I level [R79.89] 01/29/2013 More... Family history of cerebrovascular accident (CVA*01/26/2018 History of deep venous thrombosis [Z86.718] 01/26/2018 History of non-ST elevation myocardial infarcti*01/26/2018 Ischemic cardiomyopathy [I25.5] 11/20/2017 Leukocytosis [D72.829] 01/29/2013 More... JESSICA (obstructive sleep apnea) [G47.33] 07/26/2018 RLS (restless legs syndrome) [G25.81] 07/28/2018 Localized swelling, mass and lump, neck [R22.1] 07/28/2018 Acute on chronic systolic congestive heart fail*12/17/2018 Other instructions from your clinician: EXPRESS CARE PATIENT INFO CONJUNCTIVITIS OVERVIEW Conjunctivitis, also called pinkeye, is defined as an infl ammation of the conjunctiva. The conjunctiva is the thin membrane that l quyen the inner surface of the eyelids and the whites of the eyes (called th e sclera). Conjunctivitis can affect children and adults. The most comm on symptoms of conjunctivitis include a red eye and discharge. There are many potential causes of conjunctivitis, including bacterial or viral infections, allergies, or a non-specific condition (eg , a foreign body in the eye). All types of conjunctivitis cause a red ey e, although not everyone with a red eye has conjunctivitis. TYPES OF CONJUNCTIVITIS There are four main types of conjunctivitis: bacterial, elias l, allergic, and non-specific. Most cases of infectious conjunctivitis ar e viral in adults and children; however, bacterial conjunctivitis is mo re common in children than in adults. Viral conjunctivitis ? Viral conjunctivitis is typically cau sed by a virus that can also cause the common cold. A person may have sympt oms of conjunctivitis alone, or as part of a general cold syndrome, with swollen lymph nodes (glands), fever, a sore throat, and runny nose. Viral conjunctivitis is highly contagious. It is spread by c ontact, usually with objects which have come into contact with the i nfected person's eye secretions. As examples, the virus can be trans mitted when an infected person touches their eye and then touches another s urface (eg, door handle) or shares an object that has touched their eye (eg, a towel or pillow case). The most common symptoms of viral conjunctivitis include red ness, watery or mucus discharge, and a burning, dorinda, or gritty feeling in one eye. Some people have morning crusting followed by watery dischar ge, perhaps with some scant mucus discharge throughout the day. The seco nd eye usually becomes infected within 24 to 48 hours. There is no cure for viral conjunctivitis. Recovery can begi n within days, although the symptoms frequently get worse for the first thr ee to five days, with gradual improvement over the following one to two weeks for a total course of two to three weeks. Some people experience m orning crusting that continues for up to two weeks after the initia l symptoms, although the daytime redness, irritation, and tearing should be much improved. Bacterial conjunctivitis ? Bacterial conjunctivitis is highl y contagious, often affecting multiple family members or children within a classroom. Bacterial conjunctivitis is spread by contact, usually with objects which have come into contact with the infected person's eye secret ions. As examples, the virus can be transmitted when an infected pers on touches their eye and then touches another surface (eg, door handle) or shares an object that has touched their eye (eg, a towel or pillow felecia e). The most common symptoms of bacterial conjunctivitis include redness and thick discharge from one eye, although both eyes can become infected. The discharge may be yellow, white, or green, and it usually con tinues to drain throughout the day. The affected eye often is stuck s hut in the morning. Most types of bacterial conjunctivitis resolve quickly and c ause no permanent damage when treated with antibiotic eye drops or o intment Non-specific conjunctivitis ? It is possible to develop a re d eye and discharge that is not caused by an infection or allergy. The most common causes include one of the following. ? People with a dry eye may have chronic or intermittent red ness or discharge. A person whose eyes are irrigated after a chemical splash ma y have redness and discharge. ? A person with a foreign body (eg, dust, eyelash) in the ey e may have redness and discharge for 12 to 24 hours after the object is removed. All of these problems generally improve spontaneously within 24 hours. CONJUNCTIVITIS TREATMENT The treatment of conjunctivitis depends upon the cause. For this reason, it is important to have the correct diagnosis before treatme nt begins. Viral conjunctivitis treatment ? A topical antihistamine/dec ongestant eye drop may help to relieve the itching and irritation of viral conjunctivitis. These drops are available without a prescrip tion in most pharmacies. However, particular care must be taken to avoid spreading viral infections from one eye to the other ? apply drops onl y to affected eye and wash hands thoroughly after application. Similar to cold medicines, this treatment may reduce the symptoms but does n ot shorten the course of the infection. Another option is to use warm or co ol compresses, as needed. The irritation and discharge may get worse for three to five days before getting better, and symptoms can persist for two to three we eks. Bacterial conjunctivitis treatment ? Bacterial conjunctiviti s is usually treated with an antibiotic eye drop or ointment. When starte d early, treatment helps to shorten the duration of symptoms, althoug h most cases do resolve spontaneously if no treatment is used. Adults ? Adults are usually treated with an antibiotic eye d rop or ointment for five to seven days. Redness, irritation, and ey e discharge should begin to improve within 24 to 48 hours. If there is n o improvement or if the condition worsens within this time, the person melinda uld be evaluated by an draw frame tender. Contact lens wearers ? People who wear contact lenses should be evaluated by a healthcare provider before treatment begins; this is to confirm the diagnosis of conjunctivitis and to be sure that another, mor e serious condition related to contact lens use (an infection of the c ornea), is not present. People who wear contact lenses should avoid wearing the lens es during the first 24 hours of treatment, or until the eye is no longer r ed. The contact case should be thrown away and the contacts disinfec devin overnight or replaced (if disposable). Return to work/school ? The safest approach to avoid spreadi ng viral and bacterial conjunctivitis to others is to stay home until the re is no longer any discharge from the eye(s). However, this is not p ractical for most students and for those who work outside the home. Most daycare centers and schools require that students receive 24 hours o f eye drops or ointment before returning to school. This treatment helps to prevent the spread of bacterial conjunctivitis, but is not necessary or helpful for children with viral conjunctivitis. Viral conjunctivitis is similar to a cold because it spreads easily between people. Younger children, who may not remember to wa sh their hands or avoid touching their eyes, should probably not attend [facility] until the discharge has resolved. Older students or adults may choose to attend school/work, although they should limit close contact with o thers. In addition, adults who have contact with the very old, the very young, and people with a weakened immune system should limit contac t with these susceptible individuals. Non-specific conjunctivitis treatment ? The conjunctiva heal s quickly after it is injured, and non-specific conjunctivitis usually resolves within a few days without any treatment. However, the eye ma y feel better faster when it is treated with a lubricant, such as drops or ointments. These products are available without a prescription in most pharmacies. Preservative-free preparations are more expensive and are ne cessary only for people with a severe case of dry eye and those who are a llergic to preservatives. Lubricant drops can be used as often as hourly with no side effects. The ointment provides longer lasting relief but blurs vision tem porarily. For this reason, some people use ointment only at bedtime. It ma y be worthwhile to switch brands if one brand of drop or ointment is irritating, since each preparation contains different active and inactive ingredients and preservatives. Antibiotic or steroid eye drops/ointments are not recommende d unless there is a specific reason they are needed (eg, a bacterial infect ion or inflammatory condition). Using these treatments when they ar e not needed can lead to serious complications. If the symptoms of conjun ctivitis do not improve within two weeks, an examination with an ophthal mologist may be recommended. CONJUNCTIVITIS PREVENTION Bacterial and viral conjunctivitis are both highly contagiou s and spread by direct contact with secretions or contact with contaminat ed objects. Simple hygiene measures can help minimize transmission to ot hers. ? Adults or children with bacterial or viral conjunctivitis should not share handkerchiefs, tissues, towels, cosmetics, or bed shee ts/pillows with uninfected family or friends. ? Hand washing is an essential and highly effective way to p revent the spread of infection. Hands should be wet with water and plai n soap, and rubbed together for 15 to 30 seconds. It is not necessary to use antibacterial hand soap. Teach children to wash their hands before and after eating and after touching the eyes, coughing, or sneez ing. ? Alcohol-based hand rubs are a good alternative for disinfe cting hands if a sink is not available. Hand rubs should be spread over the entire surface of hands, fingers, and wrists until dry, and may be used several times. These rubs can be used repeatedly without skin irrita tion or loss of effectiveness. Prescriptions ordered this encounter Disp Refills Start End OFLOXACIN 0.3 % EYE DROPS 1 Tony* 0 04/05/2019 04/12/2019 Class: Print RX Route: LEFT EYE Sig: Use 2 Drops in the left eye every 4 hours for 7 days. Encounter Status:Closed by DEBRA TIMMONS.ARIANA FRIAS on vitamin d 25 hydroxy on 2019-03-24 Vitamin D 25 Hydroxy 25.2 31.0-80.0 ng/mL Low 9 [facility] ([id number]) Comment: Result Comment: Classificati on of 25 [place] Vitamin D status: Insufficiency/Moderate Defic iency: < or = 30 ng/mL Sufficiency/Optimal Levels: 31 to 80 ng/mL Toxicity: > 100 ng/mL Test performed by chemilumin escent immunoassay. Performed By: #### FERR, VIT D, IRON, TSH #### [facility] [address] [place] [id number] tsh on 2019-03-24 TSH Qn 2.590 0.270-4.200 uU/mL Normal 03-24-2019 [facility] ([id number]) Comment: Performed By: #### FERR, VIT D, IRON, TSH #### [facility] [address] [place] [id number] progress on 2019-02 PROGRESS HNO ID: [id number] Normal 03-24-2019 [place] Author: Ariana Richey) [facility] Service: ? [place] Author Type: Nurse Practitioner ([id number]) Type: Progress Notes Filed: 03/24/2019 4:47 PM Note Text: [facility] Follow-up/Established patient visit Date of last visit: 01/26/19 ? Sleep Disorder Dx Impression: Obstructive sleep apnea -?Compliant and beneffiting Residual daytime sleepiness.? ? Psychiatric Diagnoses: na ? Other Conditioning Diagnoses CAD, Afib, Petit's. Cardiomegaly, Obesity, Dysphagia, HTN, Reflux, DM2,?Neck mass lower left neck ? Case Formulation / [place] (may include pt's hopes, fears, ex pectations, concerns): Pt is very clear that the RLS meds have done nothing at all for the leg symptom. ?The leg symptoms do not appear at bedtime, but rat her at 2 am. ?This makes it more likely that this is more likely to be a leg dysaesthesia related to CHF (EF 45% recently). ?SO the RLS m eds are irrelevant. ?Instead might see if we can work with a mildly sedating medication to see if he can sleep through the symptom. ? ? Actions taken: ?Motivational Interviewing aspects taken?W orking with the symptoms, explaining the reasoning.?PDMP Aspect: ?? PDMP website checked and validated.?All prescriptions have been APPROPRIA TELY filled. ?No suspicious activity was identified.?01/23/2019 by Adrian Puente MD ? Stop the GPN and Requip - they are not helping at all. Trazodone 50 mg HS. Informed pt that I thought that the leg symptom was more lik jennifer to be related to the CHF, as a secondary symptom. ?(Vespers Curse is the old term). ? ? Plan: RTC in about a month, to see if the trazodone was helpful.?? . ? Nik Puente MD ? For this visit, a total iwwb-lu-qonr time with the patient c omprised 30 minutes, with at least 50% of that time devoted to face-to-f niya counseling and coordination of care, with especial emphasis placed on a nswering the patient?s and/or family?s questions in a form that they can understand and appreciate. HPI: 73 yo male who started trazodone 50 mg at his last offi ce visit with Dr. Puente. He did not have much improvements noted, therefore he re-started Requip 0.5 mg HS and is Doing well on dual therapy. He has been instructed to stop GBP and per [facility]ARRs this has no t been refilled since summer. When addressed in office pt becomes u nclear if he in fact has stopped taking. SLEEP APNEA Sleep apnea type : JESSICA, Most Recent Apnea-Hypopnea Index (AHI): 34.6 Treatment : PAP therapy [facility] PAP History: Current PAP settin/18 cm H2O. Difficulties with Bilevel PAP: None Reviewed objective PAP compliance data: 02/20/19 to 03/21/19 Compliance download: 100% >=4 hours Average use: 8 hours 30 minutes Leaks 14.4, residual AHI 0.5 Mask type: full face mask Mask issues: NA Uses chin strap: No Uses ramp function: Yes Uses humidity: Yes There is a perceived benefit by the patient SLEEP-WAKE SCHEDULE Bedtime: 11-1130 PM Latency: within 10 minutes (Vast improvement since November Subjective data) Nocturnal wakings: up to 4 times- unknown reasons Will take him about 10-15 minutes to fall back to sleep Wake time: 7 AM, with an alarm. On weekends, he maintains the same sleep schedule. Sleep behaviors: None SLEEP FUNCTIONAL OUTCOME MEASURES: reviewed and uploaded. See end of note for questionnaire answers. PAST MEDICAL HISTORY Diagnosis Date - ASHD (arteriosclerotic heart disease) 02/19/2015 - Atrial fibrillation (HCC) 07/03/2011 - Automatic implantable cardiac defibrillator in situ - Petit's esophagus with esophagitis 03/01/2015 - Benign neoplasm of colon - Chronic diarrhea 09/16/2011 - Coronary atherosclerosis of unspecified type of vessel, na tive or graft s/p PR in 1985 - Diverticulosis of colon (without mention of hemorrhage) - Duodenitis without mention of hemorrhage - Dysphagia 03/01/2015 - Facet arthritis of lumbar region 07/14/2017 - GERD (gastroesophageal reflux disease) 06/10/12 - Heart attack (HCC) - Labyrinthitis 02/05/2010 - Neurocardiogenic syncope 03/01/2015 - Obesity 09/16/2011 - JESSICA treated with BiPAP DME [facility] - Other and unspecified hyperlipidemia - Other specified forms of chronic ischemic heart disease - Paroxysmal ventricular tachycardia (HCC) - Snoring - Stroke (HCC) - Tinea of nail 01/13/2011 - Type 2 diabetes mellitus with stage 3 chronic kidney disea se, with long-term current use of insulin (HCC) 06/15/2017 - Unspecified essential hypertension PSH, SH: Reviewed REVIEW OF SYSTEMS SLEEP RELATED ROS GENERAL: See HPI HEENT: negative nasal congestion RESPIRATORY: negative wheezing CARDIOVASCULAR: negative palpitations and chest pain : negative nocturia SKIN: negative mask irritation PSYCH: negative depression and anxiety ENDOCRINE: negative thyroid problems NEURO: negative morning headaches All other systems reviewed and are negative. ALLERGIES Allergen Reactions - Morphine - Rocephin [Ceftriaxo* Other: See Comments Hot flashes; redness to skin CURRENT MEDICATIONS: traZODone (DESYREL) 50 mg tablet Take 1 tablet by mouth ajay y at bedtime. rOPINIRole (REQUIP) 0.5 mg tablet Take 1 tablet by mouth rustam ly at bedtime. warfarin (COUMADIN) 3 mg tablet 6 mg daily furosemide (LASIX) 40 mg tablet Take 1 tablet by mouth twice daily. insulin lispro (HUMALOG U-100 INSULIN) 100 unit/mL injection 18 units with breakfast, 17 units at lunch, and 24 units with supper. lisinopril (ZESTRIL, PRINIVIL) 20 mg tablet Take 1 tablet by mouth once daily. BIPAP Initiate BiPAP @ 24/18 cm of water with humidification . Mask (per patient preference), chin strap, filters, tubing / heated tu jin, heated humidity and lifetime supplies. Dx. JESSICA G47.33 327.23 - fax compliance download to [phone] flash glucose sensor (FREESTYLE ANITRA 14 DAY SENSOR) kit 1 E ach four times daily. insulin NPH human (HUMULIN N NPH U-100 INSULIN) injection 32 units subcutaneous once daily before breakfast and 32 units at bed time clopidogrel (PLAVIX) 75 mg tablet Take 1 tablet by mouth onc e daily. Insulin Syringe-Needle U-100 (BD ULTRAFINE INSULIN) 1 mL 31 gauge x 5/16 syrg 1 Each three times daily. Back Brace misc 1 Device once daily as needed. size large amiodarone (PACERONE) 200 mg tablet Take 1 tablet by mouth o nce daily. spironolactone (ALDACTONE) 25 mg tablet Take 1 tablet by angela th once daily. amLODIPine (NORVASC) 10 mg tablet Take 0.5 tablets by mouth once daily. carvedilol (COREG) 3.125 mg tablet Take 1 tablet by mouth tw ice daily. for one week starting on 06/20/16 then will be taking 6.25 x 2 da alisha . isosorbide mononitrate ER (IMDUR) 30 mg 24 hr tablet Take 1 tablet by mouth once daily. blood sugar diagnostic ([employer] BLOOD GLUCOSE SYSTEM) test s trip Use as instructed to check blood sugar 3 to 4 times daily DM: yes I nsulin: yes DX:11.9 ranolazine SR (RANEXA) 1,000 mg Tb12 Take 1 tablet by mouth twice daily. fenofibrate nanocrystallized (TRICOR) 145 mg tablet Take 1 t ablet by mouth once daily. pantoprazole DR (PROTONIX) 40 mg tablet Take 40 mg by mouth once daily. Lancets (ONE TOUCH ULTRASOFT LANCETS) lancets Use with Oneto uch Glucometer as directed Aspirin 81 mg ORAL Tab Take 1 tablet by mouth once daily. Ta ke with food. CRESTOR 40 MG TAB Take one(1) tablet daily. NITROGLYCERIN 0.3 MG SUBLINGUAL TAB as necessary Vital signs: BP 123/58 (BP Site: Left Arm, BP Position: Sitting, BP Cuff Size: Large Adult) Pulse 62 Resp 16 Wt 122.5 kg (270 lb) BMI 41. 05 kg/m? 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 Puente. He did not have much improvements noted, therefore he re-started Requip 0.5 mg HS and is Doing well on dual therapy. Plan: JESSICA: - Continue Bilevel PAP - Remember to clean your mask and equipment regularly, as elena kidd. - You should be eligible for new supplies approximately ever y 3-6 months, depending on your insurance coverage. Contact your [employer] company for new supplies as needed. - Patient to talk to [facility] at [facility] on mask fit. If unab le to improve, will consider dropping pressure to 22/16 cm H2O. RLS: - Nonmedical therapy for restless legs syndrome includes : c old/warm compresses, warm/hot baths or showers, gentle massage, mild leg stretching at nighttime, or magnesium supplements ( 250- 1000 mg at nig httime daily). Mentally alerting activities help too. Note the caffeine, al cohol, nicotine, antidepressants, anti-nausea meds and antihistamin es can cause or worsen symptoms. - Continue Requip 0.5 mg for treatment of RLS. - Iron studies and lab work ordered - Continue vit D supplement - Advised for dietary changes and weight loss - Patient deferred consult to nutrition at this time - Patient states he is taking GBP 3 capsules in the morning? Not refilled since September 2018 per [facility]. Will forward note to Dr. Puente to karen gonzales. Insomnia: - Discussed hyperarousal state and underlying causes of inso mnia. Discussed treatment options including medications and CBT. - Vast improvements noted in subjective data from last visit - Continue Trazodone 50 mg for medical treatment of insomnia . Follow up in 3 month(s). Ariana Bernal APRN.ROLL TESTER PROGRESS HNO ID: [id number] Normal 03-24-2019 [place] Author: Deniz George PIANO MECHANIC APPRENTICE [facility] Service: ? [place] Author Type: ? (0000 0) Type: Progress Notes Filed: 03/24/2019 10:54 AM Note Text: iron and tibc on 17-03-26 Iron [Mass/Vol] 102 41-186 ug/dL Normal 03-24-2019 [facility] ([id number]) Comment: Performed By: #### FERR, VIT D, IRON, TSH #### [facility] [address] [place], [place] [address] TIBC 402 232-386 ug/dL High 03-24-2019 [facility] ([id number]) Comment: Performed By: #### FERR, VIT D, IRON, TSH #### [facility] [address] [place], [place] [address] Transferrin Saturatn 25 15-57 % Normal 9 [facility] ([id number]) Comment: Performed By: #### FERR, VIT D, IRON, TSH #### [facility] [address] [place], [place] [address] ferritin on 2019-02 Ferritin [Mass/Vol] 61.8 30.3-565.7 ng/mL Normal 9 [facility] ([id number]) Comment: Performed By: #### FERR, VIT D, IRON, TSH #### [facility] [address], [place] [address] cnov on 2019-03-24 CNOV Office Visit (NEMOWS) Normal 03-24-[address] [place] [address] [facility] LOVELY DEVI ([id number]) 1945 [facility] Date Time Provider Department ([id number]) 03/24/19 11:00 AM ARIANA BERNAL (ELBA) NEMOWS During your visit today, we recorded the following informati on about you: Pulse Respiration Blood pressure Weight 62/minute 16/minute 123/58 122.5 kg Deniz George LPN 03/24/2019 10:54 AM Signed Ariana Bernal APRN.ELBA 03/24/2019 4:47 PM Signed [facility] Follow-up/Established patient visit Date of last visit: 01/26/19 ? Sleep Disorder Dx Impression: Obstructive sleep apnea -?Compliant and beneffiting Residual daytime sleepiness.? ? Psychiatric Diagnoses: na ? Other Conditioning Diagnoses CAD, Afib, Petit's. Cardiomegaly, Obes ity, Dysphagia, HTN, Reflux, DM2,?Neck mass lower left neck ? Case Formulation / [place] (may include pt's hopes, fears, ex pectations, concerns): Pt is very clear that the RLS meds have done nothing at all for the leg symptom. ?The leg symptoms do not appear at bedtime, but rather at 2 am. ?This makes it more likely that this is more l ikely to be a leg dysaesthesia related to CHF (EF 45% recently). ?SO the RLS meds are i rrelevant. ?Instead might see if we can work with a mildly sedating medication to see if he can sleep through the symptom. ? ? Actions taken: ?Motivational Interviewing aspects taken?Working with the symptoms, explaining the reasoning.?PDMP Aspect: ?? PDMP website checked and validated.?All prescriptions have been PILI ROPRIATELY filled. ?No suspicious activity was identified.?01/23/2019 by Nik pedro MD ? Stop the GPN and Requip - they are not helping at all. Trazodone 50 mg HS. Informed pt that I thought that the leg symptom was more likely to be related to the CHF, as a secondary symptom. ?(Vespers Curse is the old term). ? ? Plan: RTC in about a month, to see if the trazodone was helpful.?? . ? Nik Puente MD ? For this visit, a total vppt-pz-ijae time with the patient c omprised 30 minutes, with at least 50% of that time devoted to bypj-tr-vbuo counseling and coordination of care, with especial emph asis placed on answering the patient?s and/or family?s questions in a form that they can unde rstand and appreciate. HPI: 73 yo male who started trazodone 50 mg at h is last office visit with Dr. Puente. He did not have much improvements noted, t herefore he re-started Requip 0.5 mg HS and is Doing well on dual therapy. He has been instructed to stop GBP and per OARRs this has not been refilled since summer. When addressed in office pt becomes unclear if he in fact has stopped taking. SLEEP APNEA Sleep apnea type : JESSICA, Most Recent Apnea-Hypopnea Index (AHI): 34.6 Treatment : PAP therapy [facility] PAP History: Current PAP settin/18 cm H2O. Difficulties with Bilevel PAP: None Reviewed objective PAP compliance data: 02/20/19 to 03/21/19 Compliance download: 100% >=4 hours Average use: 8 hours 30 minutes Leaks 14.4, residual AHI 0.5 Mask type: full face mask Mask issues: NA Uses chin strap: No Uses ramp function: Yes Uses humidity: Yes There is a perceived benefit by the patient SLEEP-WAKE SCHEDULE Bedtime: 11-1130 PM Latency: within 10 minutes (Vast improvement sin november Subjective data) Nocturnal wakings: up to 4 times- unknown reasons Will take him about 10-15 minutes to fall back to sleep Wake time: 7 AM, with an alarm. On weekends, he maintains the same sleep schedule. Sleep behaviors: None SLEEP FUNCTIONAL OUTCOME MEASURES: reviewed and uploaded. See end of note for questionnaire answers. PAST MEDICAL HISTORY Diagnosis Date - ASHD (arteriosclerotic heart disease) 02/19/2015 - Atrial fibrillation (HCC) 07/03/2011 - Automatic implantable cardiac defibrillator in situ - Petit's esophagus with esophagitis 03/01/2015 - Benign neoplasm of colon - Chronic diarrhea 09/16/2011 - Coronary atherosclerosis of unspecified type of vessel, na tive or graft s/p PR in 1985 - Diverticulosis of colon (without mention of hemorrhage) - Duodenitis without mention of hemorrhage - Dysphagia 03/01/2015 - Facet arthritis of lumbar region 07/14/2017 - GERD (gastroesophageal reflux disease) 06/10/12 - Heart attack (HCC) - Labyrinthitis 02/05/2010 - Neurocardiogenic syncope 03/01/2015 - Obesity 09/16/2011 - JESSICA treated with BiPAP DME [facility] - Other and unspecified hyperlipidemia - Other specified forms of chronic ischemic heart disease - Paroxysmal ventricular tachycardia (HCC) - Snoring - Stroke (HCC) - Tinea of nail 01/13/2011 - Type 2 diabetes mellitus with st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, with long-term current use of insulin ([facility]) 06/15/2017 - Unspecified essential hypertension PSH, SH: Reviewed REVIEW OF SYSTEMS SLEEP RELATED ROS GENERAL: See HPI HEENT: negative nasal congestion RESPIRATORY: negative wheezing CARDIOVASCULAR: negative palpitations and chest pain : negative nocturia SKIN: negative mask irritation PSYCH: negative depression and anxiety ENDOCRINE: negative thyroid problems NEURO: negative morning headaches All other systems reviewed and are negative. ALLERGIES Allergen Reactions - Morphine - Rocephin [Ceftriaxo* Other: See Comments Hot flashes; redness to skin CURRENT MEDICATIONS: traZODone (DESYREL) 50 mg tablet Take 1 tablet by mouth ajay y at bedtime. rOPINIRole (REQUIP) 0.5 mg tablet Take 1 tablet by mouth rustam ly at bedtime. warfarin (COUMADIN) 3 mg tablet 6 mg daily furosemide (LASIX) 40 mg tablet Take 1 tablet by mouth twice daily. insulin lispro (HUMALOG U-100 INSULIN) 100 unit/mL injection 18 units with breakfast, 17 units at lunch, and 24 units with supper. lisinopril (ZESTRIL, PRINIVIL) 20 mg tab let Take 1 tablet by mouth once daily. BIPAP Initiate BiPAP @ 24/18 cm of water with humidification . Mask (per patient preference), chin strap, filters, tubing / heated tu jin, heated humidity and lifetime supplies. Dx. JESSICA G47.33 327.23 - fax compliance download to [phone] flash glucose sensor (FREESTYLE ANITRA 14 DAY SENSOR) kit 1 E ach four times daily. insulin NPH human (HUMULIN N NPH U-100 INSULIN) injection 32 units subcutaneous once daily before breakfast and 32 units at bedtime clopidogrel (PLAVIX) 75 mg tablet Take 1 tablet by mouth onc e daily. Insulin Syringe-Needle U-100 (BD ULTRAFINE INSULIN) 1 mL 31 gauge x 5/16 syrg 1 Each three times daily. Back Brace misc 1 Device once daily as needed. size large amiodarone (PACERONE) 200 mg tablet Take 1 tablet by mouth o nce daily. spironolactone (ALDACTONE) 25 mg tablet Take 1 tablet by angela th once daily. amLODIPine (NORVASC) 10 mg tablet Take 0.5 tablets by mouth once daily. carvedilol (COREG) 3.125 mg tablet Take 1 tablet by mouth twice daily. for one week starting on 06/20/16 then will be taking 6.25 x 2 daily . isosorbide mononitrate ER (IMDUR) 30 mg 24 hr tablet Take 1 tablet by mouth once daily. blood sugar diagnostic ([employer] BLOOD GLUCOSE SYSTEM) test s trip Use as instructed to check blood ureña gar 3 to 4 times daily DM: yes Insulin: yes DX:11.9 ranolazine SR (RANEXA) 1,000 mg Tb12 Take 1 tablet by mouth twice daily. fenofibrate nanocrystallized (TRICOR) 145 mg tablet Take 1 tablet by mouth once daily. pantoprazole DR (PROTONIX) 40 mg tablet Take 40 mg by mouth once daily. Lancets (ONE TOUCH ULTRASOFT LANCETS) lancets Us e with PanelClawtouch Glucometer as directed Aspirin 81 mg ORAL Tab Take 1 tablet by mouth once daily. Ta ke with food. CRESTOR 40 MG TAB Take one(1) tablet daily. NITROGLYCERIN 0.3 MG SUBLINGUAL TAB as necessary Vital signs: BP 123/58 (BP Site: Left Arm, BP Positio n: Sitting, BP Cuff Size: Large Adult) Pulse 62 Resp 16 Wt 122.5 kg (270 lb) BMI 41.05 kg/m ? PHYSICAL EXAM: General appearance: NAD, appropriate attire for season Mental status: A AND O X3 Speech: Clear and coherent Constitutional: Overweight Skin: W/D/I Neuro: Gait stable, hearing intact Impression: G47.33 JESSICA (obstructive sleep apnea) (primary encounter diag nosis) G25.81 RLS (restless legs syndrome) G47.01 Insomnia due to medical condition I48.0 Paroxysmal atrial fibrillation (HCC) E61.1 Iron deficiency R53.82 Chronic fatigue syndrome E55.9 Vitamin D deficiency 73 yo male who started trazodone 50 mg a t his last office visit with Dr. Puente. He did not have much improvements noted, therefore he re-started Requip 0.5 mg HS and is Doing well on dual therapy. Plan: JESSICA: - Continue Bilevel PAP - Remember to clean your mask and equipment regularly, as elena kidd. - You should be eligible for new supplies approximately ever y 3-6 months, depending on your insurance coverage. Contact your [facility] [employer] company for new supplies as needed. - Patient to talk to Chencho Ga on mask fit. If unable to improve, will consider dropping pressure to 22/16 cm H2O. RLS: - Nonmedical therapy for restless legs syndrome includes : c old/warm compresses, warm/hot baths or showers, gentle ma ssage, mild leg stretching at nighttime, or magnesium supplements ( 250- 1000 mg at nightt bridgett daily). Mentally alerting activities help too. Note the caffei ne, alcohol, nicotine, antidepressants, anti-nausea meds and antihistamines can cau se or worsen symptoms. - Continue Requip 0.5 mg for treatment of RLS. - Iron studies and lab work ordered - Continue vit D supplement - Advised for dietary changes and weight loss - Patient deferred consult to nutrition at this time - Patient states he is takreuben g GBP 3 capsules in the morning? Not refilled since September 2018 per [facility]ARs. Will forward note to Dr. Puente to review. Insomnia: - Discussed hyperarousal state and underlying causes of in somnia. Discussed treatment options including medications and CBT. - Vast improvements noted in subjective data from last visit - Continue Trazodone 50 mg for medical treatment of insomnia . Follow up in 3 month(s). Ariana Bernal APRN.ELBA Bernal APRN.ELBA 03/24/2019 11:40 AM Signed Sleep Hygiene and Good Sleep Habits Establish a regular routine that includes going to bed and getting up at the same time every day, even on weekends. Maintaining a consist ent sleep-wake cycle is the padilla to better health overall. Get an adequate amount of sleep every ni ght. Determine the amount of sleep you need by keeping track of how long you sl eep without using an alarm clock for a week. Maintain this personal sleep requirement. Go to bed when you are sleep y. If you have difficulty falling asleep or wake up shortly after going to sleep, leave the bedroom and read q uietly or do some other relaxing activity. Avoid bright lights as this can cue your wake cycle. Develop sleep rituals before going to bed. Do the same things in the same order before going to bed to cue your body to slow down and relax. Avoid stress and worries at bedtime. Address dolly cortez's activities, concerns, or distractions earlier in the day. Certain activities , such as listening to soft music, reading, or taking a warm bath, can help you win d down. Use your bed for sleeping and sex only. Often, doing o ther activities in bed like watching TV, paying bills, or working only serve to initiate worries and concerns. Let your mind associate the bed with sleeping, rel axing, and pleasure. Avoid heavy meals late in the evening; s imilarly, avoid going to bed hungry. A light snack, especially dairy foods, can help you sleep. Reduce your intake of caffeine and nicotine 4-6 hours before going to sleep. Stimulants interfere with your ability to fall asleep and progress into deep sleep. 200mg caffeine (a large Starbucks coffee) taken at 8 AM will impair the sleep architecture that night. Avoid alcohol 4-6 hours before bedtime. As a depressant that slows brain activity, alcohol may initially make you tired, but you will end up having fragmented sleep. In addition, being tir ed intensifies the effects of alcohol. Alcohol also aggravates snoring and sleep apnea particularly in men. Exercise regularly. Regular exercise, even for 20 minutes, 3 times a week, promotes deep sleep. Don't nap for more than 30 minutes or after 3 PM. Avoi ding naps all together will ensure that you are tir ed at night. Longer naps disrupt the body's ability to stay asleep. Maintain a dark, quiet room to sleep in at a temperature w ith which you are comfortable. Restless Legs: - Nonmedical therapy for res tless legs syndrome includes: cold/warm compresses, warm/hot baths or showers, gentle massage, mild leg st retching at nighttime, magnesium supplements (500mg-1000mg). Mentally alertin g activities help too. Note that caffeine, alcohol, antidepressants, antinausea med ications and antihistamines can cause or worsen symptoms. - Restiffic and Relaxis pad are treatment options as well. T hese are not covered by insurance. Referring Provider: NIK PUENTE [[id number]] Allergies As of Date: 03/24/2019 Noted Allergy Reaction MORPHINE 02/28/2005 ROCEPHIN (CEFTRIAXONE SODIUM) 06/20/2014 14 - Other: See Com ments Comments: Hot flashes; redness to skin Date Reviewed: 03/24/2019 Reviewed by: Ariana (Revenue Stamp Clerk) Gabe - Fully Assessed Reason for Visit: Sleep Apnea [1361] Primary Visit Diagnosis:JESSICA (obstructive sleep apnea) [G47.3 3] Other Visit Diagnoses:RLS (restless legs syndrome) [G25.81] Insomnia due to medical condition [G47.01] Paroxysmal atrial fibrillation (HCC) [I48.0] Iron deficiency [E61.1] Chronic fatigue syndrome [R53.82] Vitamin D 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] Order(s):traZODone (DESYREL) 50 mg tabletTake 1 tablet by mo uth daily at bedtime.Disp: 90 tabletRfl: 1 FERRITIN BLD [SQFERR] Order #: [id number] FUTURE IRON + TIBC [SQIRON] Order #: [id number] FUTURE TSH BLD [SQTSH] Order #: [id number] FUTURE VITAMIN D 25 HYDROXY [SQVITD] Order #: [id number] FUTURE rOPINIRole (REQUIP) 0.5 mg tabletTake 1 tablet by mouth ajay y at bedtime.Disp: 90 tabletRfl: 1 Prescriptions as of 03/24/2019 Sig: TRAZODONE 50 MG TABLET Take 1 tablet by mouth daily * ROPINIROLE 0.5 MG TABLET Take 1 tablet by mouth daily * WARFARIN 3 MG TABLET 6 mg daily FUROSEMIDE 40 MG TABLET Take 1 tablet by mouth twice * INSULIN LISPRO (U-100) 100 UN* 18 units with breakfast, 17 u * LISINOPRIL 20 MG TABLET Take 1 tablet by mouth once d* BIPAP Initiate BiPAP @ 24/18 cm of * FLASH GLUCOSE SENSOR KIT 1 Each four times daily. INSULIN NPH ISOPHANE U-100 HU* 32 units subcutaneous once da * CLOPIDOGREL 75 MG TABLET Take 1 tablet by mouth once d* INSULIN SYRINGE U-100 WITH NE* 1 Each three times daily. BACK BRACE 1 Device once daily as needed* AMIODARONE 200 MG TABLET Take 1 tablet by mouth once d* SPIRONOLACTONE 25 MG TABLET Take 1 tablet by mouth once d* AMLODIPINE 10 MG TABLET Take 0.5 tablets by mouth onc* CARVEDILOL 3.125 MG TABLET Take 1 tablet by mouth twice * ISOSORBIDE MONONITRATE ER 30 * Take 1 tablet by mouth once d * BLOOD SUGAR DIAGNOSTIC STRIPS Use as instructed to check bl* RANOLAZINE ER 1,000 MG TABLET* Take 1 tablet by mouth twice * FENOFIBRATE NANOCRYSTALLIZED * Take 1 tablet by mouth once d * PANTOPRAZOLE 40 MG TABLET,DEL* Take 40 mg by mouth once ajay * LANCETS Use with Onetouch Glucometer * ASPIRIN 81 MG TABLET Take 1 tablet by mouth once d* CRESTOR 40 MG TABLET Take one(1) tablet daily. 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/16/2007 Type 2 diabetes mellitus, uncontrolled (HCC) [E*02/16/2008 1 04/21/2014 ESOPHAGEAL REFLUX [K21.9] 03/06/2008 Benign Neoplasm of Colon [D12.6] 02/21/2009 Labyrinthitis [H83.09] 02/05/2010 06/07/2014 Dermatophytosis of nail [B35.1] 06/05/2011 Atrial fibrillation [I48.91] 07/03/2011 Anticoagulated on Coumadin [Z79.01] 07/03/2011 Chronic diarrhea [K52.9] 09/16/2011 06/07/2014 Class 2 severe obesity due to excess calories w*09/16/2011 Stasis dermatitis of both legs [I87.2] 04/05/2013 Foot callus [L84] 10/04/2014 Subsequent non-ST elevation (NSTEMI) myocardial*12/25/2014 Syncope [R55] 02/19/2015 Hyperlipidemia LDL goal <100 [E78.5] 02/19/2015 ASHD (arteriosclerotic heart disease) [I25.10] 02/19/2015 Neurocardiogenic syncope [R55] 03/01/2015 Dysphagia [R13.10] 03/01/2015 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 Balanitis [N48.1] 11/16/2016 Coronary angioplasty status [Z98.61] 11/16/2016 Elevated troponin I level [R79.89] 01/29/2013 More... Family history of cerebrovascular accident (CVA*01/26/2018 History of deep venous thrombosis [Z86.718] 01/26/2018 History of non-ST elevation myocardial infarcti*01/26/2018 Ischemic cardiomyopathy [I25.5] 11/20/2017 Leukocytosis [D72.829] 01/29/2013 More... JESSICA (obstructive sleep apnea) [G47.33] 07/26/2018 RLS (restless legs syndrome) [G25.81] 07/28/2018 Localized swelling, mass and lump, neck [R22.1] 07/28/2018 Acute on chronic systolic congestive heart fail*12/17/2018 Other instructions from your clinician: Sleep Hygiene and Good Sleep Habits Establish a regular routine that includes going to bed and g etting up at the same time every day, even on weekends. Maintaining a con sistent sleep-wake cycle is the padilla to better health overall. Get an adequate amount of sleep every night. Determine the a mount of sleep you need by keeping track of how long you sleep without usin g an alarm clock for a week. Maintain this personal sleep requirement . Go to bed when you are sleepy. If you have difficulty fallin g asleep or wake up shortly after going to sleep, leave the bedroom and read quietly or do some other relaxing activity. Avoid bright lights as t his can cue your wake cycle. Develop sleep rituals before going to bed. Do the same thing s in the same order before going to bed to cue your body to slow down and relax. Avoid stress and worries at bedtime. Address tomorrow's acti vities, concerns, or distractions earlier in the day. Certain activi ties, such as listening to soft music, reading, or taking a warm bath, can help you wind down. Use your bed for sleeping and sex only. Often, doing other a ctivities in bed like watching TV, paying bills, or working only serve to initiate worries and concerns. Let your mind associate the bed with s leeping, relaxing, and pleasure. Avoid heavy meals late in the evening; similarly, avoid raz g to bed hungry. A light snack, especially dairy foods, can help you sleep. Reduce your intake of caffeine and nicotine 4-6 hours before going to sleep. Stimulants interfere with your ability to fall asleep and progress into deep sleep. 200mg caffeine (a large Starbucks coffee) t aken at 8 AM will impair the sleep architecture that night. Avoid alcohol 4-6 hours before bedtime. As a depressant that slows brain activity, alcohol may initially make you tired, but you will end up having fragmented sleep. In addition, being tired intensifies the e ffects of alcohol. Alcohol also aggravates snoring and sleep apnea par ticularly in men. Exercise regularly. Regular exercise, even for 20 minutes, 3 times a week, promotes deep sleep. Don't nap for more than 30 minutes or after 3 PM. Avoiding n aps all together will ensure that you are tired at night. Longer nap s disrupt the body's ability to stay asleep. Maintain a dark, quiet room to sleep in at a temperature wit h which you are comfortable. Restless Legs: - Nonmedical therapy for restless legs syndrome includes: co ld/warm compresses, warm/hot baths or showers, gentle massage, mild leg stretching at nighttime, magnesium supplements (500mg-1000mg). Mentally alerting activities help too. Note that caffeine, alcohol, antidepres sants, antinausea medications and antihistamines can cause or worse n symptoms. - Restiffic and Relaxis pad are treatment options as well. T hese are not covered by insurance. Prescriptions ordered this encounter Disp Refills Start End TRAZODONE 50 MG TABLET 90 t* 1 03/24/2019 09/20/2019 Route: ORAL Sig: Take 1 tablet by mouth daily at bedtime. ROPINIROLE 0.5 MG TABLET 90 t* 1 03/24/2019 Route: ORAL Sig: Take 1 tablet by mouth daily at bedtime. Medications Discontinued During This Encounter cholecalciferol, Vitamin D3, (VITAMI* 12 c* 0 12/20/201802/28 Route: ORAL Sig: Take 1 capsule by mouth one time a week. Disc: Reason for discontinue is not on file. acetaminophen (TYLENOL ARTHRITIS DOMINIQUE* 07/14/2017 03/24/2019 Class: OTC Route: ORAL Sig: Take 2 tablets by mouth twice daily as needed for Pain. Disc: Reason for discontinue is not on file. colestipol 1 gram tablet 0 06/14/2012 03/24/2019 Class: Med Update Route: ORAL Sig: Take 1 tablet by mouth twice daily. Disc: Reason for discontinue is not on file. Cosign accepted by MORGAN VALDEZ III, MD[[id number]] on 06/18/19 13 5:06 PM traZODone (DESYREL) 50 mg tablet 30 t* 0 02/17/2019 03/24/20 Route: ORAL Sig: Take 1 tablet by mouth daily at bedtime. Disc: Reason for discontinue is not on file. Disposition: Return in about 3 months (around 06/23/2019). Follow-up and Disposition History Recorded Encounter Status:Closed by ARIANA BERNAL on 03/24/19 progress on 2019-01 PROGRESS HNO ID: [id number] Normal 02-21-2019 [facility] Author: Linwood Carpenter MA [place] ([id number]) Service: ? Author Type: Store Promoter Type: Progress Notes Filed: 02/21/2019 7:22 PM Note Text: Per PCP written response: PCP in agreement with instructions below. Linwood Carpenter CMA PROGRESS HNO ID: [id number] Normal 02-21-2019 [facility] Author: Melany Yuen RN [place] ([id number]) Service: ? Author Type: ? Type: Progress Notes Filed: 02/21/2019 10:36 AM Note Text: patient had inr completed at [facility] patients inr is 2.9 (patients inr range is 2.0-3.0) patient is currently taking 6mg daily patients last dose change was on 04/29/18 due to a high level of 3.7 (dose at that time was 9mg Tues and 6mg all other days) patient has had no changes in medication and no missed doses and no change in diet Advised patient to continue on the same dose(s) and that the y would only be contacted regarding dosage and follow up instructions aft er review with provider, if a change is needed. Written instructions given and patient verbalized understanding. Presently scheduled in 1 month () for follow up INR. obsolete on 2019-01 OBSOLETE Refill (NEMOWS) Normal 02-17-2019 [facility] LOVELY DEVI ([id number]) 1945 M [place] Date Time Provider Department ([id number]) 02/17/19 NIK PUENTE During your visit today, we recorded the following informati on about you: Eleno Xie, RN, RN 02/17/2019 1:27 PM Signed nika 01/26/2019 fov 03/24/2019 Sleep Disorder Dx Impression: Obstructive sleep apnea -?Compliant and beneffiting Residual daytime sleepiness.? ? Psychiatric Diagnoses: na ? Other Conditioning Diagnoses CAD, Afib, Petit's. Cardiomegaly, Obes ity, Dysphagia, HTN, Reflux, DM2,?Neck mass lower left neck ? Case Formulation / [place] (may include pt's hopes, fears, ex pectations, concerns): Pt is very clear that the RLS meds have done nothing at all for the leg symptom. The leg symptoms do not appear at bedtime, bu t rather at 2 am. This makes it more likely that this is more l ikely to be a leg dysaesthesia related to CHF (EF 45% recently). SO the RLS meds are irrelevant. Instead might see if we can work with a mildly sedating medication to see if he can sleep through the symptom. ? Actions taken: Motivational Interviewing aspects taken Working with the symptoms, explaining the reasoning. PDMP Aspect: PDMP website checked and validated. All prescriptions have been APPROPR IATELY filled. No suspicious activity was identified. 01/23/2019 by Nik pedro MD ? Stop the GPN and Requip - they are not helping at all. Trazodone 50 mg HS. Informed pt that I thought that the leg symptom was more likely to be related to the CHF, as a secondary symptom. (Vesemiliana Curse is the old term). ? Plan: RTC in about a month, to see if the trazodone was helpful. . ? Nik Puente MD ? Allergies As of Date: 02/17/2019 Noted Allergy Reaction MORPHINE 02/28/2005 ROCEPHIN (CEFTRIAXONE SODIUM) 06/20/2014 14 - Other: See Com ments Comments: Hot flashes; redness to skin Date Reviewed: 01/26/2019 Reviewed by: [place] ([facility]) JAZZY Carpenter - Fully Assessed Reason for Visit: Refill Request [94] Order(s):traZODone (DESYREL) 50 mg tabletTake 1 tablet by mo [facility] daily at bedtime.Disp: 30 tabletRfl: 0 Prescriptions as of 02/17/2019 Sig: TRAZODONE 50 MG TABLET Take 1 tablet by mouth daily * WARFARIN 3 MG TABLET Take 9 mg Tues and 6 mg all o* INSULIN LISPRO (U-100) 100 UN* 18 units with breakfast, 17 u * LISINOPRIL 20 MG TABLET Take 1 tablet by mouth once d* CHOLECALCIFEROL (VITAMIN D3) * Take 1 capsule by mouth one t * FUROSEMIDE 40 MG TABLET Take 1 tablet by mouth twice * BIPAP Initiate BiPAP @ 24/18 cm of * FLASH GLUCOSE SENSOR KIT 1 Each four times daily. INSULIN NPH ISOPHANE U-100 HU* 32 units subcutaneous once da * CLOPIDOGREL 75 MG TABLET Take 1 tablet by mouth once d* INSULIN SYRINGE U-100 WITH NE* 1 Each three times daily. BACK BRACE 1 Device once daily as needed* AMIODARONE 200 MG TABLET Take 1 tablet by mouth once d* SPIRONOLACTONE 25 MG TABLET Take 1 tablet by mouth once d* WARFARIN 5 MG TABLET Take 9 mg Tues and 6 mg all o* WARFARIN 1 MG TABLET Take 9 mg Tues and 6 mg all o* ACETAMINOPHEN ER 650 MG TABLE* Take 2 tablets by mouth twice * AMLODIPINE 10 MG TABLET Take 0.5 tablets by mouth onc* CARVEDILOL 3.125 MG TABLET Take 1 tablet by mouth twice * ISOSORBIDE MONONITRATE ER 30 * Take 1 tablet by mouth once d * BLOOD SUGAR DIAGNOSTIC STRIPS Use as instructed to check bl* RANOLAZINE ER 1,000 MG TABLET* Take 1 tablet by mouth twice * FENOFIBRATE NANOCRYSTALLIZED * Take 1 tablet by mouth once d * PANTOPRAZOLE 40 MG TABLET,DEL* Take 40 mg by mouth once ajay * LANCETS Use with On[employer]ouch Glucometer * COLESTIPOL 1 GRAM TABLET Take 1 tablet by mouth twice * ASPIRIN 81 MG TABLET Take 1 tablet by mouth once d* CRESTOR 40 MG TABLET Take one(1) tablet daily. NITROGLYCERIN 0.3 MG SUBLINGU* as necessary Problem List As Of Date 02/17/2019 Noted Resolved CARDIOMEGALY [I51.7] Duodenitis without mention of hemorrhage [K29.8* 06/07/2014 Essential hypertension [I10] PAROX VENTRIC TACHYCARD [I47.2] Automatic implantable cardioverter-defibrillato* BPH with obstruction/lower urinary tract sympto*09/16/2007 Type 2 diabetes mellitus, uncontrolled (HCC) [E*02/16/2008 1 04/21/2014 ESOPHAGEAL REFLUX [K21.9] 03/06/2008 Benign Neoplasm of Colon [D12.6] 02/21/2009 Labyrinthitis [H83.09] 02/05/2010 06/07/2014 Dermatophytosis of nail [B35.1] 06/05/2011 Atrial fibrillation [I48.91] 07/03/2011 Anticoagulated on Coumadin [Z79.01] 07/03/2011 Chronic diarrhea [K52.9] 09/16/2011 06/07/2014 Class 2 severe obesity due to excess calories w*09/16/2011 Stasis dermatitis of both legs [I87.2] 04/05/2013 Foot callus [L84] 10/04/2014 Subsequent non-ST elevation (NSTEMI) myocardial*12/25/2014 Syncope [R55] 02/19/2015 Hyperlipidemia LDL goal <100 [E78.5] 02/19/2015 ASHD (arteriosclerotic heart disease) [I25.10] 02/19/2015 Neurocardiogenic syncope [R55] 03/01/2015 Dysphagia [R13.10] 03/01/2015 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 Balanitis [N48.1] 11/16/2016 Coronary angioplasty status [Z98.61] 11/16/2016 Elevated troponin I level [R79.89] 01/29/2013 More... Family history of cerebrovascular accident (CVA*01/26/2018 History of deep venous thrombosis [Z86.718] 01/26/2018 History of non-ST elevation myocardial infarcti*01/26/2018 Ischemic cardiomyopathy [I25.5] 11/20/2017 Leukocytosis [D72.829] 01/29/2013 More... JESSICA (obstructive sleep apnea) [G47.33] 07/26/2018 RLS (restless legs syndrome) [G25.81] 07/28/2018 Localized swelling, mass and lump, neck [R22.1] 07/28/2018 Acute on chronic systolic congestive heart fail*12/17/2018 Prescriptions ordered this encounter Disp Refills Start End TRAZODONE 50 MG TABLET 30 t* 0 02/17/2019 03/19/2019 Route: ORAL Sig: Take 1 tablet by mouth daily at bedtime. Medications Discontinued During This Encounter traZODone (DESYREL) 50 mg tablet 30 t* 0 01/26/2019 02/18/20 Route: ORAL Sig: Take 1 tablet by mouth daily at bedtime. Disc: Reason for discontinue is not on file. Encounter Status:Closed by CONSTANTINE TERRAZAS on 02/17/19 OBSOLETE Refill (FAMPWS) Normal 02-17-2019 [facility] LOVELY DEVI ([id number]) 1945 [facility] Date Time Provider Department ([id number]) 02/17/19 DENIZ GARSIA During your visit today, we recorded the following informati on about you: Cindi Mecca Eastman LPN 02/17/2019 1:42 PM Signed Patient has been identified by name and date of : Yes Patient phones for refill(s): Pending Prescriptions Disp Refills FUROSEMIDE 40 MG TABLET 60 tablet 1 Sig: Take 1 tablet by mouth twice daily. ZBIGNIEW: No Date of last office visit in primary care: next ap t 04/28/19 Last 2 Encounter Wt Readings: Date: Wt: 01/26/2019 121.1 kg (267 lb) 01/26/2019 121.1 kg (267 lb) Previous labs/tests for medication: Not applicable Please advise. Thank you. Cindi Mecca Eastman LPN Allergies As of Date: 02/17/2019 Noted Allergy Reaction MORPHINE 02/28/2005 ROCEPHIN (CEFTRIAXONE SODIUM) 06/20/2014 14 - Other: See Com ments Comments: Hot flashes; redness to skin Date Reviewed: 01/26/2019 Reviewed by: [place] ([facility]) JAZZY Carpenter - Fully Assessed Reason for Visit: Refill Request [94] Visit Diagnosis:Acute on chronic systolic congestive heart f ailure (HCC) [I50.23] Order(s):furosemide (LASIX) 40 mg tabletTake 1 tablet by twice daily.Disp: 60 tabletRfl: 1 Prescriptions as of 02/17/2019 Sig: FUROSEMIDE 40 MG TABLET Take 1 tablet by mouth twice * WARFARIN 3 MG TABLET Take 9 mg Tues and 6 mg all o* INSULIN LISPRO (U-100) 100 UN* 18 units with breakfast, 17 u * X TRAZODONE 50 MG TABLET Take 1 tablet by mouth daily * LISINOPRIL 20 MG TABLET Take 1 tablet by mouth once d* CHOLECALCIFEROL (VITAMIN D3) * Take 1 capsule by mouth one t * BIPAP Initiate BiPAP @ 24/18 cm of * FLASH GLUCOSE SENSOR KIT 1 Each four times daily. INSULIN NPH ISOPHANE U-100 HU* 32 units subcutaneous once da * CLOPIDOGREL 75 MG TABLET Take 1 tablet by mouth once d* INSULIN SYRINGE U-100 WITH NE* 1 Each three times daily. BACK BRACE 1 Device once daily as needed* AMIODARONE 200 MG TABLET Take 1 tablet by mouth once d* SPIRONOLACTONE 25 MG TABLET Take 1 tablet by mouth once d* WARFARIN 5 MG TABLET Take 9 mg Tues and 6 mg all o* WARFARIN 1 MG TABLET Take 9 mg Tues and 6 mg all o* ACETAMINOPHEN ER 650 MG TABLE* Take 2 tablets by mouth twice * AMLODIPINE 10 MG TABLET Take 0.5 tablets by mouth onc* CARVEDILOL 3.125 MG TABLET Take 1 tablet by mouth twice * ISOSORBIDE MONONITRATE ER 30 * Take 1 tablet by mouth once d * BLOOD SUGAR DIAGNOSTIC STRIPS Use as instructed to check bl* RANOLAZINE ER 1,000 MG TABLET* Take 1 tablet by mouth twice * FENOFIBRATE NANOCRYSTALLIZED * Take 1 tablet by mouth once d * PANTOPRAZOLE 40 MG TABLET,DEL* Take 40 mg by mouth once ajay * LANCETS Use with [employer] Plan[employer] Glucometer * COLESTIPOL 1 GRAM TABLET Take 1 tablet by mouth twice * ASPIRIN 81 MG TABLET Take 1 tablet by mouth once d* CRESTOR 40 MG TABLET Take one(1) tablet daily. NITROGLYCERIN 0.3 MG SUBLINGU* as necessary Problem List As Of Date 02/17/2019 Noted Resolved CARDIOMEGALY [I51.7] Duodenitis without mention of hemorrhage [K29.8* 06/07/2014 Essential hypertension [I10] PAROX VENTRIC TACHYCARD [I47.2] Automatic implantable cardioverter-defibrillato* BPH with obstruction/lower urinary tract sympto*09/16/2007 Type 2 diabetes mellitus, uncontrolled (HCC) [E*02/16/2008 1 04/21/2014 ESOPHAGEAL REFLUX [K21.9] 03/06/2008 Benign Neoplasm of Colon [D12.6] 02/21/2009 Labyrinthitis [H83.09] 02/05/2010 06/07/2014 Dermatophytosis of nail [B35.1] 06/05/2011 Atrial fibrillation [I48.91] 07/03/2011 Anticoagulated on Coumadin [Z79.01] 07/03/2011 Chronic diarrhea [K52.9] 09/16/2011 06/07/2014 Class 2 severe obesity due to excess calories w*09/16/2011 Stasis dermatitis of both legs [I87.2] 04/05/2013 Foot callus [L84] 10/04/2014 Subsequent non-ST elevation (NSTEMI) myocardial*12/25/2014 Syncope [R55] 02/19/2015 Hyperlipidemia LDL goal <100 [E78.5] 02/19/2015 ASHD (arteriosclerotic heart disease) [I25.10] 02/19/2015 Neurocardiogenic syncope [R55] 03/01/2015 Dysphagia [R13.10] 03/01/2015 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 Balanitis [N48.1] 11/16/2016 Coronary angioplasty status [Z98.61] 11/16/2016 Elevated troponin I level [R79.89] 01/29/2013 More... Family history of cerebrovascular accident (CVA*01/26/2018 History of deep venous thrombosis [Z86.718] 01/26/2018 History of non-ST elevation myocardial infarcti*01/26/2018 Ischemic cardiomyopathy [I25.5] 11/20/2017 Leukocytosis [D72.829] 01/29/2013 More... JESSICA (obstructive sleep apnea) [G47.33] 07/26/2018 RLS (restless legs syndrome) [G25.81] 07/28/2018 Localized swelling, mass and lump, neck [R22.1] 07/28/2018 Acute on chronic systolic congestive heart fail*12/17/2018 Prescriptions ordered this encounter Disp Refills Start End FUROSEMIDE 40 MG TABLET 60 t* 1 02/17/2019 Route: ORAL Sig: Take 1 tablet by mouth twice daily. Medications Discontinued During This Encounter furosemide (LASIX) 40 mg tablet 12/17/2018 02/17/2019 Class: Med Update Route: ORAL Sig: Take 1 tablet by mouth twice daily. Disc: Reason for discontinue is not on file. Encounter Status:Closed by DENIZ GARSIA ROLL TESTER on 02/17/19 obsolete on 2019-01 OBSOLETE Refill (FAMPWS) Normal 02-04-2019 [facility] LOVELY DEVI ([id number]) 1945 [place] Date Time Provider Department ([id number]) 02/04/19 MORGAN VALDEZ III During your visit today, we recorded the following informati on about you: Eufemia Maurice LPN 02/04/2019 12:53 PM Signed Last refill 07/26/18 Qty: 90 with 3 refills Last ov 01/26/19 Has appt 04/28/18 Eufemia Maurice LPN Allergies As of Date: 02/04/2019 Noted Allergy Reaction MORPHINE 02/28/2005 ROCEPHIN (CEFTRIAXONE SODIUM) 06/20/2014 14 - Other: See Com ments Comments: Hot flashes; redness to skin Date Reviewed: 01/26/2019 Reviewed by: [place] ([facility]) JAZZY Carpenter - Fully Assessed Reason for Visit: Refill Request [94] Visit Diagnosis:Chronic atrial fibrillation [I48.20] Order(s):warfarin (COUMADIN) 3 mg tablet Take 9 mg Tues and 6 mg all other days or as directedDisp: 90 tabletRfl: 3 Prescriptions as of 02/04/2019 Sig: WARFARIN 3 MG TABLET Take 9 mg Tues and 6 mg all o* TRAZODONE 50 MG TABLET Take 1 tablet by mouth daily * INSULIN LISPRO (U-100) 100 UN* 18 units with breakfast, 17 u * LISINOPRIL 20 MG TABLET Take 1 tablet by mouth once d* CHOLECALCIFEROL (VITAMIN D3) * Take 1 capsule by mouth one t * FUROSEMIDE 40 MG TABLET Take 1 tablet by mouth twice * BIPAP Initiate BiPAP @ 24/18 cm of * FLASH GLUCOSE SENSOR KIT 1 Each four times daily. INSULIN NPH ISOPHANE U-100 HU* 32 units subcutaneous once da * CLOPIDOGREL 75 MG TABLET Take 1 tablet by mouth once d* INSULIN SYRINGE U-100 WITH NE* 1 Each three times daily. BACK BRACE 1 Device once daily as needed* AMIODARONE 200 MG TABLET Take 1 tablet by mouth once d* SPIRONOLACTONE 25 MG TABLET Take 1 tablet by mouth once d* WARFARIN 5 MG TABLET Take 9 mg Tues and 6 mg all o* WARFARIN 1 MG TABLET Take 9 mg Tues and 6 mg all o* ACETAMINOPHEN ER 650 MG TABLE* Take 2 tablets by mouth twice * AMLODIPINE 10 MG TABLET Take 0.5 tablets by mouth onc* CARVEDILOL 3.125 MG TABLET Take 1 tablet by mouth twice * ISOSORBIDE MONONITRATE ER 30 * Take 1 tablet by mouth once d * BLOOD SUGAR DIAGNOSTIC STRIPS Use as instructed to check bl* RANOLAZINE ER 1,000 MG TABLET* Take 1 tablet by mouth twice * FENOFIBRATE NANOCRYSTALLIZED * Take 1 tablet by mouth once d * PANTOPRAZOLE 40 MG TABLET,DEL* Take 40 mg by mouth once ajay * LANCETS Use with [employer] BVuch Glucometer * COLESTIPOL 1 GRAM TABLET Take 1 tablet by mouth twice * ASPIRIN 81 MG TABLET Take 1 tablet by mouth once d* CRESTOR 40 MG TABLET Take one(1) tablet daily. 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*INVALID FOR* Type 2 diabetes mellitus, uncontrolled (HCC) [E*INVALID FOR* 02/19/2015 ESOPHAGEAL REFLUX [K21.9] INVALID FOR* Benign Neoplasm of Colon [D12.6] INVALID FOR* Labyrinthitis [H83.09] INVALID FOR*06/07/2014 Dermatophytosis of nail [B35.1] INVALID FOR* Atrial fibrillation [I48.91] INVALID FOR* Anticoagulated on Coumadin [Z79.01] INVALID FOR* Chronic diarrhea [K52.9] INVALID FOR*06/07/2014 Class 2 severe obesity due to excess calories w*INVALID FOR* Stasis dermatitis of both legs [I87.2] INVALID FOR* Foot callus [L84] INVALID FOR* Subsequent non-ST elevation (NSTEMI) myocardial*INVALID FOR* Syncope [R55] INVALID FOR* Hyperlipidemia LDL goal <100 [E78.5] INVALID FOR* ASHD (arteriosclerotic heart disease) [I25.10] INVALID FOR* Neurocardiogenic syncope [R55] INVALID FOR* Dysphagia [R13.10] INVALID FOR* 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 Balanitis [N48.1] INVALID FOR* Coronary angioplasty status [Z98.61] INVALID FOR* Elevated troponin I level [R79.89] INVALID FOR* More... Family history of cerebrovascular accident (CVA*INVALID FOR* History of deep venous thrombosis [Z86.718] INVALID FOR* History of non-ST elevation myocardial infarcti*INVALID FOR* Ischemic cardiomyopathy [I25.5] INVALID FOR* Leukocytosis [D72.829] INVALID FOR* More... JESSICA (obstructive sleep apnea) [G47.33] INVALID FOR* RLS (restless legs syndrome) [G25.81] INVALID FOR* Localized swelling, mass and lump, neck [R22.1] INVALID FOR* Acute on chronic systolic congestive heart fail*INVALID FOR* Prescriptions ordered this encounter Disp Refills Start End WARFARIN 3 MG TABLET 90 t* 3 02/04/2019 Sig: Take 9 mg Tues and 6 mg all other days or as directed Medications Discontinued During This Encounter warfarin (COUMADIN) 3 mg tablet 90 t* 3 07/26/2018 02/04/2019 Sig: Take 9 mg Tues and 6 mg all other days or as directed Disc: Reason for discontinue is not on file. Encounter Status:Closed by MORGAN VALDEZ III, MD on 02/04/19 progress on 2018-12 PROGRESS HNO ID: [id number] Normal 01-26-2019 [facility] Author: Morgan Valdez III [place] ([id number]) Service: ? Author Type: Physician Type: Progress Notes Filed: 01/26/2019 12:49 PM Note Text: SUBJECTIVE: This is a 73 year old male that is here today fo r 3 month check up. 1. ASHD--reviewed recent cath report.(stable disease) On las ix 40 mg BID, but has gained wt 255 (12/02/18) to present 267. 2. BPH--nocturia 1-[address] Hanna's recent notes. 3. diabetes mellitus II: home glu avg 147 over past 7 days. Taking insulin lispro 18 unit(s). ac brkt and lunch; 22 units ac ureña pper. Multiple low glu in afternoons. Eats small lunches. But glu 220 after supper. Eats large suppers Current Outpatient Medications on File Prior to Visit: lisinopril (ZESTRIL, PRINIVIL) 20 mg tablet Take 1 tablet by mouth once daily. cholecalciferol, Vitamin D3, (VITAMIN D3) 50,000 unit cap ca psule Take 1 capsule by mouth one time a week. furosemide (LASIX) 40 mg tablet Take 1 tablet by mouth twice daily. insulin lispro (HUMALOG U-100 INSULIN) 100 unit/mL injection 18 units with breakfast and lunch and 22 units with supper. BIPAP Initiate BiPAP @ 24/18 cm of water with humidification . Mask (per patient preference), chin strap, filters, tubing / heated tu jin, heated humidity and lifetime supplies. Dx. JESSICA G47.33 327.23 - fax compliance download to [phone] flash glucose sensor (FREESTYLE ANITRA 14 DAY SENSOR) kit 1 E ach four times daily. warfarin (COUMADIN) 3 mg tablet Take 9 mg Tues and 6 mg all other days or as directed insulin NPH human (HUMULIN N NPH U-100 INSULIN) injection 32 units subcutaneous once daily before breakfast and 32 units at bed time clopidogrel (PLAVIX) 75 mg tablet Take 1 tablet by mouth onc e daily. Insulin Syringe-Needle U-100 (BD ULTRAFINE INSULIN) 1 mL 31 gauge x 5/16 syrg 1 Each three times daily. Back Brace misc 1 Device once daily as needed. size large amiodarone (PACERONE) 200 mg tablet Take 1 tablet by mouth o nce daily. spironolactone (ALDACTONE) 25 mg tablet Take 1 tablet by angela th once daily. warfarin (COUMADIN) 5 mg tablet Take 9 mg Tues and 6 mg all other days or as directed warfarin (COUMADIN) 1 mg tablet Take 9 mg Tues and 6 mg all other days or as directed acetaminophen (TYLENOL ARTHRITIS PAIN) 650 mg CR tablet Take 2 tablets by mouth twice daily as needed for Pain. amLODIPine (NORVASC) 10 mg tablet Take 0.5 tablets by mouth once daily. carvedilol (COREG) 3.125 mg tablet Take 1 tablet by mouth tw ice daily. for one week starting on 06/20/16 then will be taking 6.25 x 2 da alisha . isosorbide mononitrate ER (IMDUR) 30 mg 24 hr tablet Take 1 tablet by mouth once daily. blood sugar diagnostic ([employer] BLOOD GLUCOSE SYSTEM) test s trip Use as instructed to check blood sugar 3 to 4 times daily DM: yes I nsulin: yes DX:11.9 ranolazine SR (RANEXA) 1,000 mg Tb12 Take 1 tablet by mouth twice daily. fenofibrate nanocrystallized (TRICOR) 145 mg tablet Take 1 t ablet by mouth once daily. pantoprazole DR (PROTONIX) 40 mg tablet Take 40 mg by mouth once daily. Lancets (ONE TOUCH ULTRASOFT LANCETS) lancets Use with Oneto uch Glucometer as directed colestipol 1 gram tablet Take 1 tablet by mouth twice daily. Aspirin 81 mg ORAL Tab Take 1 tablet by mouth once daily. Ta ke with food. CRESTOR 40 MG TAB Take one(1) tablet daily. NITROGLYCERIN 0.3 MG SUBLINGUAL TAB as necessary No current facility-administered medications on file prior t o visit. PAST MEDICAL HISTORY Diagnosis Date - ASHD (arteriosclerotic heart disease) 02/19/2015 - Atrial fibrillation (HCC) 07/03/2011 - Automatic implantable cardiac defibrillator in situ - Petit's esophagus with esophagitis 03/01/2015 - Benign neoplasm of colon - Chronic diarrhea 09/16/2011 - Coronary atherosclerosis of unspecified type of vessel, na tive or graft s/p PR in 1985 - Diverticulosis of colon (without mention of hemorrhage) - Duodenitis without mention of hemorrhage - Dysphagia 03/01/2015 - Facet arthritis of lumbar region 07/14/2017 - GERD (gastroesophageal reflux disease) 06/10/12 - Heart attack (HCC) - Labyrinthitis 02/05/2010 - Neurocardiogenic syncope 03/01/2015 - Obesity 09/16/2011 - JESSICA treated with BiPAP DME [employer] - Other and unspecified hyperlipidemia - Other specified forms of chronic ischemic heart disease - Paroxysmal ventricular tachycardia (HCC) - Snoring - Stroke (HCC) - Tinea of nail 01/13/2011 - Type 2 diabetes mellitus with stage 3 chronic kidney disea se, with long-term current use of insulin (HCC) 06/15/2017 - Unspecified essential hypertension FAMILY HISTORY Problem Relation Age of Onset - Stroke Mother - Heart Mother - Cancer Father prostate - Heart Father - Breast Cancer Sister - Breast Cancer Sister - Diabetes Sister - Diabetes Brother - Diabetes Brother Social History Tobacco Use - Smoking status: Former Smoker Years: 15.00 Types: Cigars Last attempt to quit: 08/12/2007 Years since quittin.4 - Smokeless tobacco: Never Used - Tobacco comment: 2-3 per day Substance Use Topics - Alcohol use: No - Drug use: No BP 124/84 Pulse 60 Resp 18 Wt 121.1 kg (267 lb) BMI 40.60 kg/m? OBJECTIVE: APPEARANCE Well appearing, alert, in no acute distress, well -hydrated, well nourished. and Morbidly obese NECK Supple, no adenopathy; thyroid symmetric, normal size, no bruits HEART RRR with normal S1 and S2, no murmurs, no gallops, no JVD appreciated LUNG clear to auscultation EXTREMITIES 2/4 non-pitting lower leg edema bilat. Lab Results for LOVELY DEVI ( ) as of 09:56 Ref. Range 01/14/2019 10:42 01/14/2019 10:43 01/14/2019 10:4 4 01/17/2019 09:06 01/24/2019 09:32 Sodium Latest Ref Range: 136 - 144 mmol/L 140 Potassium Latest Ref Range: 3.7 - 5.1 mmol/L 4.5 Chloride Latest Ref Range: 97 - 105 mmol/L 102 CO2 Latest Ref Range: 22 - 30 mmol/L 27 BUN Latest Ref Range: 9 - 24 mg/dL 23 Creatinine Latest Ref Range: 0.73 - 1.22 mg/dL 1.24 (H) Glucose Latest Ref Range: 74 - 99 mg/dL 191 (H) Protein, Total Latest Ref Range: 6.3 - 8.0 g/dL 6.7 Calcium Latest Ref Range: 8.5 - 10.2 mg/dL 8.6 Albumin Latest Ref Range: 3.9 - 4.9 g/dL 4.3 Bilirubin, Total Latest Ref Range: 0.2 - 1.3 mg/dL 0.7 Alkaline Phosphatase Latest Ref Range: 38 - 113 U/L 54 ALT Latest Ref Range: 10 - 54 U/L 23 AST Latest Ref Range: 14 - 40 U/L 25 Anion Gap Latest Ref Range: 9 - 18 mmol/L 11 eGFR- Unknown >60 eGFR-All Other Races Latest Units: . 57 Cholesterol, Total Latest Ref Range: <200 mg/dL 118 Triglyceride Latest Ref Range: <150 mg/dL 172 (H) Fasting Time Latest Units: hrs 13 HDL Cholesterol Latest Ref Range: >39 mg/dL 32 (L) LDL Cholesterol Latest Ref Range: <100 mg/dL 52 VLDL Cholesterol Latest Ref Range: <30 mg/dL 34 (H) TC:HDL Ratio Latest Ref Range: <5.10 3.69 LDL:HDL Ratio Latest Ref Range: <2.54 1.63 Non HDL Cholesterol Latest Ref Range: <130 mg/dL 86 Creatinine, Ur Random (UCRR) Latest Ref Range: 20 - 300 mg/d L 206.0 Hematocrit Latest Ref Range: 39.0 - 51.0 % 37.9 (L) Hemoglobin A1C Latest Ref Range: 4.3 - 5.6 % 7.3 (H) Estimated Average Glucose Latest Units: mg/dL 163 WBC Latest Ref Range: 3.70 - 11.00 k/uL 4.90 RBC Latest Ref Range: 4.20 - 6.00 m/uL 4.08 (L) Hemoglobin Latest Ref Range: 13.0 - 17.0 g/dL 12.0 (L) Platelet Count Latest Ref Range: 150 - 400 k/uL 154 MCV Latest Ref Range: 80.0 - 100.0 fL 92.9 MCH Latest Ref Range: 26.0 - 34.0 pG 29.4 MCHC Latest Ref Range: 30.5 - 36.0 g/dL 31.7 MPV Latest Ref Range: 9.0 - 12.7 fL 10.5 RDW-CV Latest Ref Range: 11.5 - 15.0 % 14.6 Absolute nRBC Latest Ref Range: <0.01 k/uL <0.01 Albumin/Creat Ratio Latest Ref Range: <30 mg/g 8 Albumin, Urine Random Latest Units: mg/L 15.6 INR (POCT) Latest Ref Range: 0.8 - 1.2 3.2 (H) 2.9 (H) Internal Quality Check Unknown Acceptable Acceptable ASSESSMENT: diabetes mellitus II --not at goal CKD III--stable hypertension--at goal hyperlipidemia--at goal BPH with LUTS--stable obesity --wt gain venous insufficiency both lower legs PLAN: healthy weight losing diet and regular exercise eat less sugar, bread, potato, pasta, rice, corn, corn syrup , saturated fats eat smaller portions and no second portions reduce insulin lispro 17 units before lunch increase insulin lispro 24 units before supper same other medications return to office 3 mos with labs FEDERICO Alatorre MD, III MD PROGRESS HNO ID: [id number] Normal 01-26-2019 [facility] Author: Nik Amado ([id number]) Service: ? Author Type: Physician Type: Progress Notes Filed: 01/26/2019 12:22 PM Note Text: [facility] Follow-up/Established patient visit Reason for Visit: med review. Time Out: 9:10 Time In: 8:53 For this visit, a total lmbh-sy-[id number] time with the patient c omprised 15 minutes, with at least 50% of that time devoted to face-to-f niya counseling and coordination of care, with especial emphasis placed on a nswering the patient?s and/or family?s questions in a form that they can understand and appreciate. Relevant Medications, allergies, hx Reviewed: yes Date of last visit: 11/24/18 Insurance: Medicare Home Location: [place] From Last Visit: Sleep Disorder Dx Impression: Obstructive sleep apnea -?Compliant and beneffiting Residual daytime sleepiness.? ? Psychiatric Diagnoses: na ? Other Conditioning Diagnoses CAD, Afib, Petit's. Cardiomegaly, Obesity, Dysphagia, HTN, Reflux, DM2,?Neck mass lower left neck. ? Case Formulation / [place] (may include pt's hopes, fears, ex pectations, concerns): GPN did not work at 900 mg hs, so this does not seem relevan t. On to ropinerole, as trial. ? Actions taken: Motivational Interviewing aspects taken Review of progress, working with med trials. DC Bedtime GPN Add ropinerole 0.25 mg hs for RLS ? Plan: RTC in 1 month, Cindi or Gabe ? See if it is help, may increase some. Psychological/Psychiatric Developments: No new Medical and Neurological Developments: Just a enrico Insomnia: continuing RLS: RLS are much the same. When getting to sleep and wake u p, he can notice it. Medicine did not Help at all. Other: no SLEEP-WAKE SCHEDULE Bedtime: around 10 or 11 SLEEP LATENCY: trouble, taking avg 1 to 1.5 hours. Not sure reason. Wake after Sleep Onset sleeps for a couple hours, then wakes up per usu. Wake time: 7 am. , without an alarm. On weekends, he maintains the same sleep schedule. Sleep Quality: poor He naps for 30 min usu; May or may not use makes. Naps are r efreshing. Average total sleep time (in a 24 hour period): avg 6 to 7 h ours. Obstructive Sleep Apnea Issues: Most Recent Apnea-Hypopnea Index:?32 from 2015?PAP Pressure Setting(s) ?bipap 20/16?DME Company: ?[employer]?Mask Type: ?Ffm Mask Issues: Not wearing when had a cold, but generally iusing. Download Report: na Self-Reported Compliance: All the time usu. Benefit: Yes. Patient-Entered Questionnaire Sleep Scores ALLERGIES Allergen Reactions - Morphine - Rocephin [Ceftriaxo* Other: See Comments Hot flashes; redness to skin CURRENT MEDICATIONS: lisinopril (ZESTRIL, PRINIVIL) 20 mg tablet Take 1 tablet by mouth once daily. cholecalciferol, Vitamin D3, (VITAMIN D3) 50,000 unit cap ca psule Take 1 capsule by mouth one time a week. furosemide (LASIX) 40 mg tablet Take 1 tablet by mouth twice daily. insulin lispro (HUMALOG U-100 INSULIN) 100 unit/mL injection 18 units with breakfast and lunch and 22 units with supper. rOPINIRole (REQUIP) 0.5 mg tablet Take 1 tablet by mouth rustam ly at bedtime. gabapentin (NEURONTIN) 300 mg capsule Take 1 capsule by mout h three times daily AND 2 capsules as directed. Do all this for 90 days. BIPAP Initiate BiPAP @ 24/18 cm of water with humidification . Mask (per patient preference), chin strap, filters, tubing / heated tu jin, heated humidity and lifetime supplies. Dx. JESSICA G47.33 327.23 - fax compliance download to [phone] flash glucose sensor (FREESTYLE ANITRA 14 DAY SENSOR) kit 1 E ach four times daily. warfarin (COUMADIN) 3 mg tablet Take 9 mg Tues and 6 mg all other days or as directed insulin NPH human (HUMULIN N NPH U-100 INSULIN) injection 32 units subcutaneous once daily before breakfast and 32 units at bed time clopidogrel (PLAVIX) 75 mg tablet Take 1 tablet by mouth onc e daily. Insulin Syringe-Needle U-100 (BD ULTRAFINE INSULIN) 1 mL 31 gauge x 5/16 syrg 1 Each three times daily. Back Brace misc 1 Device once daily as needed. size large amiodarone (PACERONE) 200 mg tablet Take 1 tablet by mouth o nce daily. spironolactone (ALDACTONE) 25 mg tablet Take 1 tablet by angela th once daily. warfarin (COUMADIN) 5 mg tablet Take 9 mg Tues and 6 mg all other days or as directed warfarin (COUMADIN) 1 mg tablet Take 9 mg Tues and 6 mg all other days or as directed acetaminophen (TYLENOL ARTHRITIS PAIN) 650 mg CR tablet Take 2 tablets by mouth twice daily as needed for Pain. amLODIPine (NORVASC) 10 mg tablet Take 0.5 tablets by mouth once daily. carvedilol (COREG) 3.125 mg tablet Take 1 tablet by mouth tw ice daily. for one week starting on 06/20/16 then will be taking 6.25 x 2 da alisha . isosorbide mononitrate ER (IMDUR) 30 mg 24 hr tablet Take 1 tablet by mouth once daily. blood sugar diagnostic ([employer] BLOOD GLUCOSE SYSTEM) test s trip Use as instructed to check blood sugar 3 to 4 times daily DM: yes I nsulin: yes DX:11.9 ranolazine SR (RANEXA) 1,000 mg Tb12 Take 1 tablet by mouth twice daily. fenofibrate nanocrystallized (TRICOR) 145 mg tablet Take 1 t ablet by mouth once daily. pantoprazole DR (PROTONIX) 40 mg tablet Take 40 mg by mouth once daily. Lancets (ONE TOUCH ULTRASOFT LANCETS) lancets Use with Oneto uch Glucometer as directed colestipol 1 gram tablet Take 1 tablet by mouth twice daily. Aspirin 81 mg ORAL Tab Take 1 tablet by mouth once daily. Ta ke with food. CRESTOR 40 MG TAB Take one(1) tablet daily. NITROGLYCERIN 0.3 MG SUBLINGUAL TAB as necessary Vital signs: BP 130/82 Pulse 60 Resp 20 Wt 121.1 kg (267 lb) BMI 40.60 kg/m? MENTAL STATUS General appearance: obese Grooming casual Orientation: Ox3 Memory: Grossly intact Kinetics: sloer Eye Contact: fair Demeanor tired, reserved. Speech: Articulate, mild raspiness Thought Stream lower detaisl Thought Content about sleep still being poor. Mood: pretty good most of the time Affect: tired Suicidal Ideation: no Homocidal Ideation: No Psychosis no Insight fair Judgment fiar ENT : na Abdomen: obese Neuro: Gait and station stable normal, Strength grossly norm al in all extremities. Coordination grossly intact. No tremors noted. Sleep Disorder Dx Impression: Obstructive sleep apnea -?Compliant and beneffiting Residual daytime sleepiness.? ? Psychiatric Diagnoses: na ? Other Conditioning Diagnoses CAD, Afib, Petit's. Cardiomegaly, Obesity, Dysphagia, HTN, Reflux, DM2,?Neck mass lower left neck Case Formulation / [place] (may include pt's hopes, fears, ex pectations, concerns): Pt is very clear that the RLS meds have done nothing at all for the leg symptom. The leg symptoms do not appear at bedtime, but rath er at 2 am. This makes it more likely that this is more likely to be a l eg dysaesthesia related to CHF (EF 45% recently). SO the RLS me ds are irrelevant. Instead might see if we can work with a mildly s edating medication to see if he can sleep through the symptom. Actions taken: Motivational Interviewing aspects taken Working with the symptoms, explaining the reasoning. PDMP Aspect: PDMP website checked and validated. All prescriptions have been APPROPRIATELY filled. No suspici ous activity was identified. 01/23/2019 by Nik Puente MD Stop the GPN and Requip - they are not helping at all. Trazodone 50 mg HS. Informed pt that I thought that the leg symptom was more lik jennifer to be related to the CHF, as a secondary symptom. ([facility]es[facility] Curse is the old term). Plan: RTC in about a month, to see if the trazodone was helpful. . Nik Puente MD cnov on 2019-01-26 [facility] Office Visit ([facility]) Normal 01-27-20 19 [facility] LOVELY DEVI ([id number]) 1945 [facility] Date Time Provider Department ([id number]) 01/26/19 9:40 AM MORGAN VALDEZ III [facility] During your visit today, we recorded the following informati on about you: Pulse Respiration Blood pressure Weight 60/minute 18/minute 124/84 121.1 kg Morgan Valdez III MD 01/26/2019 12:49 PM Signed SUBJECTIVE: This is a 73 yea r old male that is here today for 3 month check up. 1. ASHD--reviewed recent cath report.(stable dis ease) On lasix 40 mg BID, but has gained wt 255 (12/02/18) to present 267. 2. BPH--nocturia 1-[address] Hanna's recent notes. 3. diabetes mellitus II: home glu avg 147 over past 7 days. Taking insulin lispro 18 unit(s). ac brkt and lunch; 22 units a c supper. Multiple low glu in afternoons. Eats small lunches. But glu 220 after supp er. Eats large suppers Current Outpatient Medications on File Prior to Visit: lisinopril (ZESTRIL, PRINIVIL) 20 mg tab let Take 1 tablet by mouth once daily. cholecalciferol, Vitamin D3, (VITAMIN D3) 50,000 unit cap ca psule Take 1 capsule by mouth one time a week. furosemide (LASIX) 40 mg tablet Take 1 tablet by mouth twice daily. insulin lispro (HUMALOG U-100 INSULIN) 100 unit/mL injection 18 units with breakfast and lunch and 22 units with supper. BIPAP Initiate BiPAP @ 24/18 cm of water with humidification . Mask (per patient preference), chin strap, filters, tubing / heated tu jin, heated humidity and lifetime supplies. Dx. JESSICA G47.33 327.57 - fax compliance download to [phone] flash glucose sensor (FREESTYLE ANITRA 14 DAY SENSOR) kit 1 E ach four times daily. warfarin (COUMADIN) 3 mg tablet Take 9 mg Tues and 6 m g all other days or as directed insulin NPH human (HUMULIN N NPH U-100 INSULIN) injection 32 units subcutaneous once daily before breakfast and 32 units at bedtime clopidogrel (PLAVIX) 75 mg tablet Take 1 tablet by mouth onc e daily. Insulin Syringe-Needle U-100 (BD ULTRAFINE INSULIN) 1 mL 31 gauge x 5/16 syrg 1 Each three times daily. Back Brace misc 1 Device once daily as needed. size large amiodarone (PACERONE) 200 mg tablet Take 1 tablet by mouth o nce daily. spironolactone (ALDACTONE) 25 mg tablet Take 1 tablet by angela th once daily. warfarin (COUMADIN) 5 mg tablet Take 9 mg Tues and 6 m g all other days or as directed warfarin (COUMADIN) 1 mg tablet Take 9 mg Tues and 6 m g all other days or as directed acetaminophen (TYLENOL ARTHR ITIS PAIN) 650 mg CR tablet Take 2 tablets by mouth twice daily as needed for Pain. amLODIPine (NORVASC) 10 mg tablet Take 0.5 tablets by mouth once daily. carvedilol (COREG) 3.125 mg tablet Take 1 tablet by mouth twice daily. for one week starting on 06/20/16 then will be taking 6.25 x 2 daily . isosorbide mononitrate ER (IMDUR) 30 mg 24 hr tablet Take 1 tablet by mouth once daily. blood sugar diagnostic ([employer] BLOOD GLUCOSE SYSTEM) test s trip Use as instructed to check blood ureña gar 3 to 4 times daily DM: yes Insulin: yes DX:11.9 ranolazine SR (RANEXA) 1,000 mg Tb12 Take 1 tablet by mouth twice daily. fenofibrate nanocrystallized (TRICOR) 145 mg tablet Take 1 tablet by mouth once daily. pantoprazole DR (PROTONIX) 40 mg tablet Take 40 mg by mouth once daily. Lancets (ONE TOUCH ULTRASOFT LANCETS) lancets Us e with [employer] Plan[employer] Glucometer as directed colestipol 1 gram tablet Take 1 tablet by mouth twice daily. Aspirin 81 mg ORAL Tab Take 1 tablet by mouth once daily. Ta ke with food. CRESTOR 40 MG TAB Take one(1) tablet daily. NITROGLYCERIN 0.3 MG SUBLINGUAL TAB as necessary No current facility-administered medications on file prior t o visit. PAST MEDICAL HISTORY Diagnosis Date - ASHD (arteriosclerotic heart disease) 02/19/2015 - Atrial fibrillation (HCC) 07/03/2011 - Automatic implantable cardiac defibrillator in situ - Petit's esophagus with esophagitis 03/01/2015 - Benign neoplasm of colon - Chronic diarrhea 09/16/2011 - Coronary atherosclerosis of unspecified type of vessel, na tive or graft s/p PR in 1985 - Diverticulosis of colon (without mention of hemorrhage) - Duodenitis without mention of hemorrhage - Dysphagia 03/01/2015 - Facet arthritis of lumbar region 07/14/2017 - GERD (gastroesophageal reflux disease) 06/10/12 - Heart attack (HCC) - Labyrinthitis 02/05/2010 - Neurocardiogenic syncope 03/01/2015 - Obesity 09/16/2011 - JESSICA treated with BiPAP DME [employer] - Other and unspecified hyperlipidemia - Other specified forms of chronic ischemic heart disease - Paroxysmal ventricular tachycardia (HCC) - Snoring - Stroke (HCC) - Tinea of nail 01/13/2011 - Type 2 diabetes mellitus with st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, with long-term current use of insulin ([facility]) 06/15/2017 - Unspecified essential hypertension FAMILY HISTORY Problem Relation Age of Onset - Stroke Mother - Heart Mother - Cancer Father prostate - Heart Father - Breast Cancer Sister - Breast Cancer Sister - Diabetes Sister - Diabetes Brother - Diabetes Brother Social History Tobacco Use - Smoking status: Former Smoker Years: 15.00 Types: Cigars Last attempt to quit: 08/12/2007 Years since quittin.4 - Smokeless tobacco: Never Used - Tobacco comment: 2-3 per day Substance Use Topics - Alcohol use: No - Drug use: No BP 124/84 Pulse 60 Resp 18 Wt 121.1 kg (267 lb) BMI 40.60 kg/m? OBJECTIVE: APPEARANCE Well appearing, alert, in no acute distress, we ll-hydrated, well nourished. and Morbidly obese NECK Supple, no adenopathy; thyroid symmetric, normal size, no bruits HEART RRR with normal S1 and S2, no murmurs, no gallops, n o JVD appreciated LUNG clear to auscultation EXTREMITIES 2/4 non-pitting lower leg edema bilat. Lab Results for LOVELY DEVI ( ) as of 09:56 Ref. Range 01/14/2019 10:42 01/14/2019 1 0:43 01/14/2019 10:44 01/17/2019 09:06 01/24/2019 09:32 Sodium Latest Ref Range: 136 - 144 mmol/L 140 Potassium Latest Ref Range: 3.7 - 5.1 mmol/L 4.5 Chloride Latest Ref Range: 97 - 105 mmol/L 102 CO2 Latest Ref Range: 22 - 30 mmol/L 27 BUN Latest Ref Range: 9 - 24 mg/dL 23 Creatinine Latest Ref Range: 0.73 - 1.22 mg/dL 1.24 (H) Glucose Latest Ref Range: 74 - 99 mg/dL 191 (H) Protein, Total Latest Ref Range: 6.3 - 8.0 g/dL 6.7 Calcium Latest Ref Range: 8.5 - 10.2 mg/dL 8.6 Albumin Latest Ref Range: 3.9 - 4.9 g/dL 4.3 Bilirubin, Total Latest Ref Range: 0.2 - 1.3 mg/dL 0.7 Alkaline Phosphatase Latest Ref Range: 38 - 113 U/L 54 ALT Latest Ref Range: 10 - 54 U/L 23 AST Latest Ref Range: 14 - 40 U/L 25 Anion Gap Latest Ref Range: 9 - 18 mmol/L 11 eGFR- Unknown >60 eGFR-All Other Races Latest Units: . 57 Cholesterol, Total Latest Ref Range: <200 mg/dL 118 Triglyceride Latest Ref Range: <150 mg/dL 172 (H) Fasting Time Latest Units: hrs 13 HDL Cholesterol Latest Ref Range: >39 mg/dL 32 (L) LDL Cholesterol Latest Ref Range: <100 mg/dL 52 VLDL Cholesterol Latest Ref Range: <30 mg/dL 34 (H) TC:HDL Ratio Latest Ref Range: <5.10 3.69 LDL:HDL Ratio Latest Ref Range: <2.54 1.63 Non HDL Cholesterol Latest Ref Range: <130 mg/dL 86 Creatinine, Ur Random (UCRR) Latest Ref Range: 20 - 300 mg/d L 206.0 Hematocrit Latest Ref Range: 39.0 - 51.0 % 37.9 (L) Hemoglobin A1C Latest Ref Range: 4.3 - 5.6 % 7.3 (H) Estimated Average Glucose Latest Units: mg/dL 163 WBC Latest Ref Range: 3.70 - 11.00 k/uL 4.90 RBC Latest Ref Range: 4.20 - 6.00 m/uL 4.08 (L) Hemoglobin Latest Ref Range: 13.0 - 17.0 g/dL 12.0 (L) Platelet Count Latest Ref Range: 150 - 400 k/uL 154 MCV Latest Ref Range: 80.0 - 100.0 fL 92.9 MCH Latest Ref Range: 26.0 - 34.0 pG 29.4 MCHC Latest Ref Range: 30.5 - 36.0 g/dL 31.7 MPV Latest Ref Range: 9.0 - 12.7 fL 10.5 RDW-CV Latest Ref Range: 11.5 - 15.0 % 14.6 Absolute nRBC Latest Ref Range: <0.01 k/uL <0.01 Albumin/Creat Ratio Latest Ref Range: <30 mg/g 8 Albumin, Urine Random Latest Units: mg/L 15.6 INR (POCT) Latest Ref Range: 0.8 - 1.2 3.2 (H) 2.9 (H) Internal Quality Check Unknown Acceptable Acceptable ASSESSMENT: diabetes mellitus II --not at goal CKD III--stable hypertension--at goal hyperlipidemia--at goal BPH with LUTS--stable obesity --wt gain venous insufficiency both lower legs PLAN: healthy weight losing diet and regular exercise eat less sugar, bread, potato, pasta, rice, corn, corn syrup, saturated fats eat smaller portions and no second portions reduce insulin lispro 17 units before lunch increase insulin lispro 24 units before supper same other medications return to office 3 mos with labs FEDERICO Alatorre MD, III MD Frank A Cebul, III MD 01/26/2019 10:02 AM Signed PLAN: healthy weight losing diet and regular exercise eat less sugar, bread, potato, pasta, rice, corn, corn syrup, saturated fats eat smaller portions and no second portions reduce insulin lispro 17 units before lunch increase insulin lispro 24 units before supper same other medications return to office 3 mos with labs Morgan Valdez III MD Referring Provider: MORGAN VALDEZ III [[id number]] Allergies As of Date: 01/26/2019 Noted Allergy Reaction MORPHINE 02/28/2005 ROCEPHIN (CEFTRIAXONE SODIUM) 06/20/2014 14 - Other: See Com ments Comments: Hot flashes; redness to skin Date Reviewed: 01/26/2019 Reviewed by: [place] ([facility]) JAZZY Carpenter - Fully Assessed Reason for Visit: 3 month check up [Other] Primary Visit Diagnosis:Type 2 diabetes mellitus with st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, with long-term current use of insulin ([facility]) [E11.22, N18.3, Z79.4] Other Visit Diagnoses:Acute on chronic systolic congestive h eart failure ([facility]) [I50.23] Class 2 severe obesity due to excess calories with serious comorbidity and body mass index (BMI) of 38.0 to 38.9 in adult ([facility]) [E66.01, Z68.38] ASHD (arteriosclerotic heart disease) [I25.10] Paroxysmal atrial fibrillation ([facility]) [I48.0] Anticoagulated on Coumadin [Z79.01] Controlled type 2 diabetes mellitus without complication, with long-term current use of insulin ([facility]) [E11.9, Z79.4] Vitamin D 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] Order(s):HGB A1C [CYQIK6G] Order #: [id number] FUTURE COMP METABOLIC PANEL [SQCMP] Order #: [id number] FUTURE insulin lispro (HUMALOG U-100 INSULIN) 100 unit/mL injection 18 units with breakfast, 17 units at lunch, and 24 units with supper. Disp: Rfl: VITAMIN D 25 HYDROXY [SQVITD] Order #: [id number] FUTURE Prescriptions as of 01/26/2019 Sig: TRAZODONE 50 MG TABLET Take 1 tablet by mouth daily * INSULIN LISPRO (U-100) 100 UN* 18 units with breakfast, 17 u * LISINOPRIL 20 MG TABLET Take 1 tablet by mouth once d* CHOLECALCIFEROL (VITAMIN D3) * Take 1 capsule by mouth one t * FUROSEMIDE 40 MG TABLET Take 1 tablet by mouth twice * BIPAP Initiate BiPAP @ 24/18 cm of * FLASH GLUCOSE SENSOR KIT 1 Each four times daily. WARFARIN 3 MG TABLET Take 9 mg Tues and 6 mg all o* INSULIN NPH ISOPHANE U-100 HU* 32 units subcutaneous once da * CLOPIDOGREL 75 MG TABLET Take 1 tablet by mouth once d* INSULIN SYRINGE U-100 WITH NE* 1 Each three times daily. BACK BRACE 1 Device once daily as needed* AMIODARONE 200 MG TABLET Take 1 tablet by mouth once d* SPIRONOLACTONE 25 MG TABLET Take 1 tablet by mouth once d* WARFARIN 5 MG TABLET Take 9 mg Tues and 6 mg all o* WARFARIN 1 MG TABLET Take 9 mg Tues and 6 mg all o* ACETAMINOPHEN ER 650 MG TABLE* Take 2 tablets by mouth twice * AMLODIPINE 10 MG TABLET Take 0.5 tablets by mouth onc* CARVEDILOL 3.125 MG TABLET Take 1 tablet by mouth twice * ISOSORBIDE MONONITRATE ER 30 * Take 1 tablet by mouth once d * BLOOD SUGAR DIAGNOSTIC STRIPS Use as instructed to check bl* RANOLAZINE ER 1,000 MG TABLET* Take 1 tablet by mouth twice * FENOFIBRATE NANOCRYSTALLIZED * Take 1 tablet by mouth once d * PANTOPRAZOLE 40 MG TABLET,DEL* Take 40 mg by mouth once ajay * LANCETS Use with Onetouch Glucometer * COLESTIPOL 1 GRAM TABLET Take 1 tablet by mouth twice * ASPIRIN 81 MG TABLET Take 1 tablet by mouth once d* CRESTOR 40 MG TABLET Take one(1) tablet daily. NITROGLYCERIN 0.3 MG SUBLINGU* as necessary X ROPINIROLE 0.5 MG TABLET Take 1 tablet by mouth daily * X GABAPENTIN 300 MG CAPSULE Take 1 capsule by mouth three* Problem List As Of Date 01/26/2019 Noted Resolved CARDIOMEGALY [I51.7] Duodenitis without mention of hemorrhage [K29.8* 06/07/2014 Essential hypertension [I10] PAROX VENTRIC TACHYCARD [I47.2] Automatic implantable cardioverter-defibrillato* BPH with obstruction/lower urinary tract sympto*INVALID FOR* Type 2 diabetes mellitus, uncontrolled (HCC) [E*INVALID FOR* 02/19/2015 ESOPHAGEAL REFLUX [K21.9] INVALID FOR* Benign Neoplasm of Colon [D12.6] INVALID FOR* Labyrinthitis [H83.09] INVALID FOR*06/07/2014 Dermatophytosis of nail [B35.1] INVALID FOR* Atrial fibrillation [I48.91] INVALID FOR* Anticoagulated on Coumadin [Z79.01] INVALID FOR* Chronic diarrhea [K52.9] INVALID FOR*06/07/2014 Class 2 severe obesity due to excess calories w*INVALID FOR* Stasis dermatitis of both legs [I87.2] INVALID FOR* Foot callus [L84] INVALID FOR* Subsequent non-ST elevation (NSTEMI) myocardial*INVALID FOR* Syncope [R55] INVALID FOR* Hyperlipidemia LDL goal <100 [E78.5] INVALID FOR* ASHD (arteriosclerotic heart disease) [I25.10] INVALID FOR* Neurocardiogenic syncope [R55] INVALID FOR* Dysphagia [R13.10] INVALID FOR* 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 Balanitis [N48.1] INVALID FOR* Coronary angioplasty status [Z98.61] INVALID FOR* Elevated troponin I level [R79.89] INVALID FOR* More... Family history of cerebrovascular accident (CVA*INVALID FOR* History of deep venous thrombosis [Z86.718] INVALID FOR* History of non-ST elevation myocardial infarcti*INVALID FOR* Ischemic cardiomyopathy [I25.5] INVALID FOR* Leukocytosis [D72.829] INVALID FOR* More... JESSICA (obstructive sleep apnea) [G47.33] INVALID FOR* RLS (restless legs syndrome) [G25.81] INVALID FOR* Localized swelling, mass and lump, neck [R22.1] INVALID FOR* Acute on chronic systolic congestive heart fail*INVALID FOR* Other instructions from your clinician: PLAN: healthy weight losing diet and regular exercise eat less sugar, bread, potato, pasta, rice, corn, corn syrup , saturated fats eat smaller portions and no second portions reduce insulin lispro 17 units before lunch increase insulin lispro 24 units before supper same other medications return to office 3 mos with labs Morgan Valdez III MD Prescriptions ordered this encounter Disp Refills Start End INSULIN LISPRO (U-100) 100 UNIT/ML S* 01/26/2019 Class: Med Update Si units with breakfast, 17 units at lunch, and 24 unit s with supper. Medications Discontinued During This Encounter insulin lispro (HUMALOG U-100 INSULI* 12/17/2018 01/26/2019 Class: Med Update Si units with breakfast and lunch and 22 units with sup per. Disc: Adjust Sig - Block E-Cancel Encounter Status:Closed by MORGAN VALDEZ III, MD on 01/26/19 [place] Office Visit ([place]) Normal 01-27-20 [facility] LOVELY DEVI ([id number]) 1945 [place] [facility] Date Time Provider Department ([id number]) 01/26/19 8:40 AM NIK PUENTE During your visit today, we recorded the following informati on about you: Pulse Respiration Blood pressure Weight 60/minute 20/minute 130/82 121.1 kg Nik Puente MD 01/26/2019 12:22 PM Signed [facility] Follow-up/Established patient visit Reason for Visit: med review. Time Out: 9:10 Time In: 8:53 For this visit, a total yaxo-le-azui time with the patient c omprised 15 minutes, with at least 50% of that time devoted to lhvt-aw-baso counseling and coordination of care, with especial emph asis placed on answering the patient?s and/or family?s questions in a form that they can unde rstand and appreciate. Relevant Medications, allergies, hx Reviewed: yes Date of last visit: 11/24/18 Insurance: Medicare Home Location: [place] From Last Visit: Sleep Disorder Dx Impression: Obstructive sleep apnea -?Compliant and beneffiting Residual daytime sleepiness.? ? Psychiatric Diagnoses: na ? Other Conditioning Diagnoses CAD, Afib, Petit's. Cardiomegaly, Obes ity, Dysphagia, HTN, Reflux, DM2,?Neck mass lower left neck. ? Case Formulation / [place] (may include pt's hopes, fears, ex pectations, concerns): GPN did not work at 900 mg hs, so this does not seem relevan t. On to ropinerole, as trial. ? Actions taken: Motivational Interviewing aspects taken Review of progress, working with med trials. DC Bedtime GPN Add ropinerole 0.25 mg hs for RLS ? Plan: RTC in 1 month, Cindi or Gabe ? See if it is help, may increase some. Psychological/Psychiatric Developments: No new Medical and Neurological Developments: Just a enrico Insomnia: continuing RLS: RLS are much the same. When getting to sleep and wake up, he can notice it. Medicine did not Help at all. Other: no SLEEP-WAKE SCHEDULE Bedtime: around 10 or 11 SLEEP LATENCY: trouble, taking avg 1 to 1.5 hours. Not sure reason. Wake after Sleep Onset sleeps for a couple hours, then wakes up per usu. Wake time: 7 am. , without an alarm. On weekends, he maintains the same sleep schedule. Sleep Quality: poor He naps for 30 min usu; May or may not use makes. Naps are r efreshing. Average total sleep time (in a 24 hour period): avg 6 to 7 h ours. Obstructive Sleep Apnea Issues: Most Recent Apnea-Hypopnea Index:?32 from 2015?PAP Pressure Setting(s) ?bipap 20/16?DME Company: ?[employer]?Mask Type: ?Ffm Mask Issues: Not wearing when had a cold, but generally iusi ng. Download Report: na Self-Reported Compliance: All the time usu. Benefit: Yes. Patient-Entered Questionnaire Sleep Scores ALLERGIES Allergen Reactions - Morphine - Rocephin [Ceftriaxo* Other: See Comments Hot flashes; redness to skin CURRENT MEDICATIONS: lisinopril (ZESTRIL, PRINIVIL) 20 mg tab let Take 1 tablet by mouth once daily. cholecalciferol, Vitamin D3, (VITAMIN D3) 50,000 unit cap ca psule Take 1 capsule by mouth one time a week. furosemide (LASIX) 40 mg tablet Take 1 tablet by mouth twice daily. insulin lispro (HUMALOG U-100 INSULIN) 100 unit/mL injection 18 units with breakfast and lunch and 22 units with supper. rOPINIRole (REQUIP) 0.5 mg tablet Take 1 tablet by mouth rustam ly at bedtime. gabapentin (NEURONTIN) 300 m g capsule Take 1 capsule by mouth three times daily AND 2 capsules as directed. Do all this for 90 days. BIPAP Initiate BiPAP @ 24/18 cm of water with humidification . Mask (per patient preference), chin strap, filters, tubing / heated tu jin, heated humidity and lifetime supplies. Dx. JESSICA G47.33 327.23 - fax compliance download to [phone] flash glucose sensor (FREESTYLE ANITRA 14 DAY SENSOR) kit 1 E ach four times daily. warfarin (COUMADIN) 3 mg tablet Take 9 mg Tues and 6 m g all other days or as directed insulin NPH human (HUMULIN N NPH U-100 INSULIN) injection 32 units subcutaneous once daily before breakfast and 32 units at bedtime clopidogrel (PLAVIX) 75 mg tablet Take 1 tablet by mouth onc e daily. Insulin Syringe-Needle U-100 (BD ULTRAFINE INSULIN) 1 mL 31 gauge x 5/16 syrg 1 Each three times daily. Back Brace misc 1 Device once daily as needed. size large amiodarone (PACERONE) 200 mg tablet Take 1 tablet by mouth o nce daily. spironolactone (ALDACTONE) 25 mg tablet Take 1 tablet by angela th once daily. warfarin (COUMADIN) 5 mg tablet Take 9 mg Tues and 6 m g all other days or as directed warfarin (COUMADIN) 1 mg tablet Take 9 mg Tues and 6 m g all other days or as directed acetaminophen (TYLENOL ARTHR ITIS PAIN) 650 mg CR tablet Take 2 tablets by mouth twice daily as needed for Pain. amLODIPine (NORVASC) 10 mg tablet Take 0.5 tablets by mouth once daily. carvedilol (COREG) 3.125 mg tablet Take 1 tablet by mouth twice daily. for one week starting on 06/20/16 then will be taking 6.25 x 2 daily . isosorbide mononitrate ER (IMDUR) 30 mg 24 hr tablet Take 1 tablet by mouth once daily. blood sugar diagnostic ([employer] BLOOD GLUCOSE SYSTEM) test s trip Use as instructed to check blood ureña gar 3 to 4 times daily DM: yes Insulin: yes DX:11.9 ranolazine SR (RANEXA) 1,000 mg Tb12 Take 1 tablet by mouth twice daily. fenofibrate nanocrystallized (TRICOR) 145 mg tablet Take 1 tablet by mouth once daily. pantoprazole DR (PROTONIX) 40 mg tablet Take 40 mg by mouth once daily. Lancets (ONE TOUCH ULTRASOFT LANCETS) lancets Us e with [employer] Glucometer as directed colestipol 1 gram tablet Take 1 tablet by mouth twice daily. Aspirin 81 mg ORAL Tab Take 1 tablet by mouth once daily. Ta ke with food. CRESTOR 40 MG TAB Take one(1) tablet daily. NITROGLYCERIN 0.3 MG SUBLINGUAL TAB as necessary Vital signs: BP 130/82 Pulse 60 Resp 20 Wt 121.1 kg (267 lb) BMI 40.60 kg/m? MENTAL STATUS General appearance: obese Grooming casual Orientation: Ox3 Memory: Grossly intact Kinetics: sloer Eye Contact: fair Demeanor tired, reserved. Speech: Articulate, mild raspiness Thought Stream lower detaisl Thought Content about sleep still being poor. Mood: pretty good most of the time Affect: tired Suicidal Ideation: no Homocidal Ideation: No Psychosis no Insight fair Judgment fiar ENT : na Abdomen: obese Neuro: Gait and station stable normal, Strength grossly norm al in all extremities. Coordination grossly intact. No tremors noted. Sleep Disorder Dx Impression: Obstructive sleep apnea -?Compliant and beneffiting Residual daytime sleepiness.? ? Psychiatric Diagnoses: na ? Other Conditioning Diagnoses CAD, Afib, Petit's. Cardiomegaly, Obes ity, Dysphagia, HTN, Reflux, DM2,?Neck mass lower left neck Case Formulation / [place] (may include pt's hopes, fears, ex pectations, concerns): Pt is very clear that the RLS meds have done nothing at all for the leg symptom. The leg symptoms do not appear at bedtime, bu t rather at 2 am. This makes it more likely that this is more l ikely to be a leg dysaesthesia related to CHF (EF 45% recently). SO the RLS meds are irrelevant. Instead might see if we can work with a mildly sedating medication to see if he can sleep through the symptom. Actions taken: Motivational Interviewing aspects taken Working with the sym ptoms, explaining the reasoning. PDMP Aspect: PDMP website checked and validated. All prescriptions have been APPROPRIATELY filled. No suspicious activity was identified. 01/23/2019 by Nik Puente MD Stop the GPN and Requip - they are not helping at all. Trazodone 50 mg HS. Informed pt that I thought that the leg symptom was more likely to be related to the CHF, as a secondary symptom. (Vespers Curse is the old term). Plan: RTC in about a month, to see if the trazodone was helpful. . 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] Paroxysmal atrial fibrillation (HCC) [I48.0] Cardiomegaly [I51.7] Vitamin D 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] Vitamin B deficiency [E53.9] Essential hypertension [I10] Gastroesophageal reflux disease, esophagitis presence not specified [K21.9] Class 2 severe obesity due to excess calories with serious comorbidity and body mass index (BMI) of 38.0 to 38.9 in adult ([facility]) [E66.01, Z68.38] 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, 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, with long-term current use of insulin ([facility]) [E11.22, N18.3, Z79.4] Localized swelling, mass and lump, neck [R22.1] Type 2 diabetes mellitus with peripheral neuropathy ([facility]) [E11.42] Order(s):traZODone (DESYREL) 50 mg tabletTake 1 tablet by mo uth daily at bedtime.Disp: 30 tabletRfl: 0 Prescriptions as of 01/26/2019 Sig: LISINOPRIL 20 MG TABLET Take 1 tablet by mouth once d* CHOLECALCIFEROL (VITAMIN D3) * Take 1 capsule by mouth one t * FUROSEMIDE 40 MG TABLET Take 1 tablet by mouth twice * X INSULIN LISPRO (U-100) 100 UN* 18 units with breakfast and l* BIPAP Initiate BiPAP @ 24/18 cm of * FLASH GLUCOSE SENSOR KIT 1 Each four times daily. WARFARIN 3 MG TABLET Take 9 mg Tues and 6 mg all o* INSULIN NPH ISOPHANE U-100 HU* 32 units subcutaneous once da * CLOPIDOGREL 75 MG TABLET Take 1 tablet by mouth once d* INSULIN SYRINGE U-100 WITH NE* 1 Each three times daily. BACK BRACE 1 Device once daily as needed* AMIODARONE 200 MG TABLET Take 1 tablet by mouth once d* SPIRONOLACTONE 25 MG TABLET Take 1 tablet by mouth once d* WARFARIN 5 MG TABLET Take 9 mg Tues and 6 mg all o* WARFARIN 1 MG TABLET Take 9 mg Tues and 6 mg all o* ACETAMINOPHEN ER 650 MG TABLE* Take 2 tablets by mouth twice * AMLODIPINE 10 MG TABLET Take 0.5 tablets by mouth onc* CARVEDILOL 3.125 MG TABLET Take 1 tablet by mouth twice * ISOSORBIDE MONONITRATE ER 30 * Take 1 tablet by mouth once d * BLOOD SUGAR DIAGNOSTIC STRIPS Use as instructed to check bl* RANOLAZINE ER 1,000 MG TABLET* Take 1 tablet by mouth twice * FENOFIBRATE NANOCRYSTALLIZED * Take 1 tablet by mouth once d * PANTOPRAZOLE 40 MG TABLET,DEL* Take 40 mg by mouth once ajay * LANCETS Use with [employer] Glucometer * COLESTIPOL 1 GRAM TABLET Take 1 tablet by mouth twice * ASPIRIN 81 MG TABLET Take 1 tablet by mouth once d* CRESTOR 40 MG TABLET Take one(1) tablet daily. 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*INVALID FOR* Type 2 diabetes mellitus, uncontrolled (HCC) [E*INVALID FOR* 02/19/2015 ESOPHAGEAL REFLUX [K21.9] INVALID FOR* Benign Neoplasm of Colon [D12.6] INVALID FOR* Labyrinthitis [H83.09] INVALID FOR*06/07/2014 Dermatophytosis of nail [B35.1] INVALID FOR* Atrial fibrillation [I48.91] INVALID FOR* Anticoagulated on Coumadin [Z79.01] INVALID FOR* Chronic diarrhea [K52.9] INVALID FOR*06/07/2014 Class 2 severe obesity due to excess calories w*INVALID FOR* Stasis dermatitis of both legs [I87.2] INVALID FOR* Foot callus [L84] INVALID FOR* Subsequent non-ST elevation (NSTEMI) myocardial*INVALID FOR* Syncope [R55] INVALID FOR* Hyperlipidemia LDL goal <100 [E78.5] INVALID FOR* ASHD (arteriosclerotic heart disease) [I25.10] INVALID FOR* Neurocardiogenic syncope [R55] INVALID FOR* Dysphagia [R13.10] INVALID FOR* 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 Balanitis [N48.1] INVALID FOR* Coronary angioplasty status [Z98.61] INVALID FOR* Elevated troponin I level [R79.89] INVALID FOR* More... Family history of cerebrovascular accident (CVA*INVALID FOR* History of deep venous thrombosis [Z86.718] INVALID FOR* History of non-ST elevation myocardial infarcti*INVALID FOR* Ischemic cardiomyopathy [I25.5] INVALID FOR* Leukocytosis [D72.829] INVALID FOR* More... JESSICA (obstructive sleep apnea) [G47.33] INVALID FOR* RLS (restless legs syndrome) [G25.81] INVALID FOR* Localized swelling, mass and lump, neck [R22.1] INVALID FOR* Acute on chronic systolic congestive heart fail*INVALID FOR* Prescriptions ordered this encounter Disp Refills Start End TRAZODONE 50 MG TABLET 30 t* 0 01/26/2019 02/25/2019 Route: ORAL Sig: Take 1 tablet by mouth daily at bedtime. Medications Discontinued During This Encounter gabapentin (NEURONTIN) 300 mg capsule 150 * 2 10/27/201812/30 Route: ORAL Sig: Take 1 capsule by mouth three times daily AND 2 capsules as directed. Do all this for 90 days. Disc: Lack of Efficacy rOPINIRole (REQUIP) 0.5 mg tablet 30 t* 0 12/16/2018 01/27/20 Route: ORAL Sig: Take 1 tablet by mouth daily at bedtime. Disc: Lack of Efficacy Disposition: Return in about 4 weeks (around 02/23/2019). Follow-up and Disposition History Recorded Encounter Status:Closed by MD NIK PUENTE on 01/26/19 progress on 2018-12 PROGRESS HNO ID: [id number] Normal 01-24-2019 [facility] Author: Linwood Carpenter MA [place] ([id number]) Service: ? Author Type: Store Promoter Type: Progress Notes Filed: 01/24/2019 4:23 PM Note Text: Per PCP written response: PCP in agreement with instructions below. Tracker updated. Linwood Carpenter CMA PROGRESS HNO ID: [id number] Normal 01-24-2019 [facility] Author: Melany Yuen RN [place] ([id number]) Service: ? Author Type: ? Type: Progress Notes Filed: 01/24/2019 10:44 AM Note Text: patient had inr completed at [facility] patients inr is 2.9 (patients inr range is 2.0-3.0) patient is currently taking 6mg daily patients last dose change was on 04/29/18 due to a high level of 3.7 (dose at that time was 9mg Tues and 6mg all other days) patient has had no changes in medication and no missed doses and no change in diet Advised patient to continue on the same dose(s) and that the y would only be contacted regarding dosage and follow up instructions aft er review with provider, if a change is needed. Written instructions given and patient verbalized understanding. Presently scheduled in 4 weeks () for follow up INR. progress on 2018-12 PROGRESS HNO ID: [id number] Normal 01-17-2019 [facility] Author: Linwood Carpenter [place] ([id number]) Service: ? Author Type: Store Promoter Type: Progress Notes Filed: 01/17/2019 4:16 PM Note Text: Per PCP written response: Same coumadin, recheck on 01/31 as scheduled. Tracker updated . Patient notified, voiced understanding. Linwood Carpenter CMA PROGRESS HNO ID: [id number] Normal 01-17-2019 [facility] Author: Melany Yuen RN [place] ([id number]) Service: ? Author Type: ? Type: Progress Notes Filed: 01/17/2019 9:25 AM Note Text: patient had inr completed at [facility] patients inr is 3.2 (patients inr range is 2.0-3.0) patient is currently taking 6mg daily patients last dose change was on 04/29/18 due to a high level of 3.7 (dose at that time ws 9mg Tues and 6mg all other days) patient has had no changes in medication and no missed doses and no change in diet Advised patient that they would be contacted regarding medic ation dose and when to follow up after information is reviewed by provider. After provider review please contact the patient with information and schedule follow up appointment with coumadin clinic. FYI - patient has been scheduled for a 1 week follow up inr on 01/31/19 lipid panel, basic on 2019-01-14 Cholesterol [Mass/Vol] 118 <200 mg/dL Normal 019 [facility] ([id number]) Comment: Result Comment: <200 mg/dL, Desirable 200-239 mg/dL, Borderline hi gh >239 mg/dL, High Performed By: #### CMP, LIPB , HBA1C ####[facility] [id number] [place] [address] [phone] Cholesterol in HDL [Mass/Vol] 32 >39 mg/dL Low 01-14-2019 [facility] ([id number]) Comment: Result Comment: 40-59 mg/dL, Acceptable >59 mg/dL, High: Negative ri sk factor for coronary heart disease <40 mg/dL, Low: Positive ris k factor for coronary heart disease Performed By: #### CMP, LIPB , HBA1C ####[facility] [address] [place] [address] [phone] Cholesterol in LDL 52 <100 mg/dL Normal 01-14-2019 [facility] [Mass/Vol] [place] (11309) Comment: Result Comment: <100 mg/dL, Optimal 100-129 mg/dL, Near optimal/ above optimal 130-159 mg/dL, Borderline hi gh 160-189 mg/dL, High >189 mg/dL, Very high Secondary prevention optimal LDL Cholesterol levels are recommended to be < 70 mg/dL Performed By: #### CMP, LIPB , HBA1C ####[place] [address] [phone] Fasting Time 13 hrs Normal 01-14-2019 [facility] (61670) Comment: Performed By: #### CMP, LIPB , HBA1C ####[place] [address] [phone] LDL:HDL Ratio 1.63 <2.54 Normal 01-14-2019 [facility] (71553) Comment: Result Comment: Reference: 1. National Cholesterol Educ ation Program ATP III Guideline At-A-Glance Quick Desk Reference: National Heart, Lung, and Blood [place]. National Institutes of Health. 2001: NIH Publication No. 01-3305. 2. An International Atherosc lerosis Society position paper: global recommendations for the management of dyslipidemia: executive summary, Atherosclerosis. 2014: 232(2):410-413. Performed By: #### CMP, LIPB , HBA1C ####[place] [address] [phone] Non HDL Cholesterol 86 <130 mg/dL Normal 01-14-2019 [facility] (84734) Comment: Result Comment: <130 mg/dL, Optimal 130-159 mg/dL, Near optimal/ above optimal 160-189 mg/dL, Borderline hi gh 190-219 mg/dL, High >219 mg/dL, Very high Secondary prevention optimal non HDL Cholesterol levels are recommended to be < 100 mg/dL Performed By: #### CMP, LIPB , HBA1C ####[place] [address] [phone] TC:HDL Ratio 3.69 <5.10 Normal 01-14-2019 [facility] (62173) Comment: Performed By: #### CMP, LIPB , HBA1C ####[place] [address] [phone] Triglyceride [Mass/Vol] 172 <150 mg/dL High 2018 [facility] (01434) Comment: Result Comment: <150 mg/dL, Normal 150-199 mg/dL, Borderline hi gh 200-499 mg/dL, High >499 mg/dL, Very high Performed By: #### CMP, LIPB , HBA1C ####[address] [place] [address] [phone] VLDL Cholesterol 34 <30 mg/dL High 01-14-2019 [facility] (72035) Comment: Performed By: #### CMP, LIPB , HBA1C ####[address] [place] [address] [phone] hemoglobin a1c on 2 HbA1c (Bld) [Mass fraction] 7.3 4.3-5.6 % High [facility] (25092) Comment: Result Comment: [place] Dominique betes Association guidelines indicate that patients with HgbA1c in the range 5.7-6.4% are at increased risk for development of diabetes, and intervention by lifestyle modification may be beneficial. HgbA1c greater o r equal to 6.5% is considered diagnostic of diabetes. Performed By: #### CMP, LIPB , HBA1C ####[place] [address] [phone] HbA1c (Bld) [Mass fraction] 163 mg/dL Normal [facility] (91781) Comment: Result Comment: eAG: (Estima devin average glucose) is a calculated value from HgbA1c and is bank representative of the average blood glucose level in the last 2-3 month period. Performed By: #### CMP, LIPB , HBA1C ####[place] [address] [place] [address] [phone] comp metabolic panel on 2019-01-14 Albumin [Mass/Vol] 4.3 3.9-4.9 g/dL Normal 01-14-2019 [facility] (37003) Comment: Performed By: #### CMP, LIPB , HBA1C ####[address] [place] [address] [phone] ALP [Catalytic activity/Vol] 54 38-113 U/L Normal 1 [facility] (31422) Comment: Performed By: #### CMP, LIPB , HBA1C ####[place] [address] [place] [address] [phone] ALT [Catalytic activity/Vol] 23 10-54 U/L Normal 1 [facility] (02646) Comment: Performed By: #### CMP, LIPB , HBA1C ####[place] [address] [place] [address] Anion gap [Moles/Vol] 11 9-18 mmol/L Normal 01-15-20 19 [facility] (38842) Comment: Performed By: #### CMP, LIPB , HBA1C ####[place] [address] [place] [address] AST [Catalytic activity/Vol] 25 14-40 U/L Normal 1 [facility] (01240) Comment: Performed By: #### CMP, LIPB , HBA1C ####[place] [address] [place] [address] Bilirubin [Mass/Vol] 0.7 0.2-1.3 mg/dL Normal 9 [facility] (29488) Comment: Performed By: #### CMP, LIPB , HBA1C ####[place] [address] [place] [address] Calcium [Mass/Vol] 8.6 8.5-10.2 mg/dL Normal 01-14-2019 [facility] (35577) Comment: Performed By: #### CMP, LIPB , HBA1C ####[place] [address] [place] [address] [phone] Chloride [Moles/Vol] 102 97-105 mmol/L Normal 9 [facility] (85004) Comment: Performed By: #### CMP, LIPB , HBA1C ####[place] [address] [place] [address] CO2 [Moles/Vol] 27 22-30 mmol/L Normal 01-14-2019 [facility] (58282) Comment: Performed By: #### CMP, LIPB , HBA1C ####[facility] [address] [place] [address] Creatinine [Mass/Vol] 1.24 0.73-1.22 mg/dL High 01-15-20 19 [facility] (21928) Comment: Performed By: #### CMP, LIPB , HBA1C ####[facility] [address] [place] [address] eGFR- Amer. >60 Normal 01-14-2019 [facility] (31745) Comment: Performed By: #### CMP, LIPB , HBA1C ####[facility] [place] [address] GFR/1.73 sq M predicted among 57 . Normal 01-14-2019 [facility] non-blacks MDRD (S/P/Bld) [Vol (93731) rate/Area] Comment: Result Comment: eGFR (Estima devin GFR) Units of measure: mL/min/1.73 meters squared eGFR is derived from the ree xpressed MDRD Study equation using the following parameters: serum creatinine, age, gender and race. The creatinine assay has been calibrated to be traceable to IDMS. An eGFR <60 mL/min/1.73m2 fo r >3 months is consistent with chronic kidney disease. Refer to KDOQI guidelines for clinical interpretation. In patients with unstable re nal function, e.g. those with acute kidney injury, the eGFR may not accurately reflect actual GFR. Performed By: #### CMP, LIPB , HBA1C ####[facility] [address] [place] [address] [phone] Glucose [Mass/Vol] 191 74-99 mg/dL High 01-14-2019 [facility] (80084) Comment: Result Comment: The [place] Diabetes Association (ADA) provides guidance for cutoff values for fasting glucose and random glucose. The ADA defines fasting as no caloric intake for at least 8 hours. Fas ting plasma glucose results between 100 to 125 mg/dL indicate increased risk for diabetes (prediabetes). Fasting plasma glucose resul ts greater than or equal to 126 mg/dL meet the criteria for diagnosis of diabetes. In the absence of unequivocal hyperglycemia, results should be confirmed by repeat testing. In a patient with classic s ymptoms of hyperglycemia or hyperglycemic crisis, random plasma glucose results greater than or equal to 200 mg/dL meet the criteria for diagnosis of diabetes. Reference: Standards of [facility] Care in Diabetes 2016, [place] Diabetes Association. Diabetes Care. 2016.39(Suppl 1). Performed By: #### CMP, LIPB , HBA1C ####[place] [address] [place] [address] [phone] Potassium [Moles/Vol] 4.5 3.7-5.1 mmol/L Normal 01-15-20 19 [facility] (02377) Comment: Performed By: #### CMP, LIPB , HBA1C ####[place] [address] [place] [address] [phone] Protein [Mass/Vol] 6.7 6.3-8.0 g/dL Normal 01-14-2019 [facility] (81221) Comment: Performed By: #### CMP, LIPB , HBA1C ####[facility] [place] [address] [phone] Sodium [Moles/Vol] 140 136-144 mmol/L Normal 01-14-2019 [facility] (12756) Comment: Performed By: #### CMP, LIPB , HBA1C ####[facility] [place] [address] [phone] Urea nitrogen [Mass/Vol] 23 9-24 mg/dL Normal 01-14 [facility] (58503) Comment: Performed By: #### CMP, LIPB , HBA1C ####[facility] [place] [address] [phone] cnnurse on [facility] Nurse Visit (FAMPWS) Normal 9 [facility] LOVELY DEVI ([id number]) 1945 M [place] Date Time Provider Department ([id number]) 01/14/19 11:20 AM PR NURSE SABI During your visit today, we recorded the following informati on about you: Referring Provider: SELF [200] Allergies As of Date: 01/14/2019 Noted Allergy Reaction MORPHINE 02/28/2005 ROCEPHIN (CEFTRIAXONE SODIUM) 06/20/2014 14 - Other: See Com ments Comments: Hot flashes; redness to skin Date Reviewed: 12/17/2018 Reviewed by: Eufemia Maurice LPN - Fully Assessed Reason for Visit: Imm/Inj [58] Cmt: Flu Vaccine Primary Visit Diagnosis:Need for vaccination [Z23] Prescriptions as of 01/14/2019 Sig: LISINOPRIL 20 MG TABLET Take 1 tablet by mouth once d* CHOLECALCIFEROL (VITAMIN D3) * Take 1 capsule by mouth one t * FUROSEMIDE 40 MG TABLET Take 1 tablet by mouth twice * INSULIN LISPRO (U-100) 100 UN* 18 units with breakfast and l * ROPINIROLE 0.5 MG TABLET Take 1 tablet by mouth daily * GABAPENTIN 300 MG CAPSULE Take 1 capsule by mouth three* BIPAP Initiate BiPAP @ 24/18 cm of * FLASH GLUCOSE SENSOR KIT 1 Each four times daily. WARFARIN 3 MG TABLET Take 9 mg Tues and 6 mg all o* INSULIN NPH ISOPHANE U-100 HU* 32 units subcutaneous once da * CLOPIDOGREL 75 MG TABLET Take 1 tablet by mouth once d* INSULIN SYRINGE U-100 WITH NE* 1 Each three times daily. BACK BRACE 1 Device once daily as needed* AMIODARONE 200 MG TABLET Take 1 tablet by mouth once d* SPIRONOLACTONE 25 MG TABLET Take 1 tablet by mouth once d* WARFARIN 5 MG TABLET Take 9 mg Tues and 6 mg all o* WARFARIN 1 MG TABLET Take 9 mg Tues and 6 mg all o* ACETAMINOPHEN ER 650 MG TABLE* Take 2 tablets by mouth twice * AMLODIPINE 10 MG TABLET Take 0.5 tablets by mouth onc* CARVEDILOL 3.125 MG TABLET Take 1 tablet by mouth twice * ISOSORBIDE MONONITRATE ER 30 * Take 1 tablet by mouth once d * BLOOD SUGAR DIAGNOSTIC STRIPS Use as instructed to check bl* RANOLAZINE ER 1,000 MG TABLET* Take 1 tablet by mouth twice * FENOFIBRATE NANOCRYSTALLIZED * Take 1 tablet by mouth once d * PANTOPRAZOLE 40 MG TABLET,DEL* Take 40 mg by mouth once ajay * LANCETS Use with SmarTots Glucometer * COLESTIPOL 1 GRAM TABLET Take 1 tablet by mouth twice * ASPIRIN 81 MG TABLET Take 1 tablet by mouth once d* CRESTOR 40 MG TABLET Take one(1) tablet daily. 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 FOR* Type 2 diabetes mellitus, uncontrolled (HCC) [E*INVALID FOR* 02/19/2015 ESOPHAGEAL REFLUX [K21.9] INVALID FOR* Benign Neoplasm of Colon [D12.6] INVALID FOR* Labyrinthitis [H83.09] INVALID FOR*06/07/2014 Dermatophytosis of nail [B35.1] INVALID FOR* Atrial fibrillation [I48.91] INVALID FOR* Anticoagulated on Coumadin [Z79.01] INVALID FOR* Chronic diarrhea [K52.9] INVALID FOR*06/07/2014 Class 2 severe obesity due to excess calories w*INVALID FOR* Stasis dermatitis of both legs [I87.2] INVALID FOR* Foot callus [L84] INVALID FOR* Subsequent non-ST elevation (NSTEMI) myocardial*INVALID FOR* Syncope [R55] INVALID FOR* Hyperlipidemia LDL goal <100 [E78.5] INVALID FOR* ASHD (arteriosclerotic heart disease) [I25.10] INVALID FOR* Neurocardiogenic syncope [R55] INVALID FOR* Dysphagia [R13.10] INVALID FOR* 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 Balanitis [N48.1] INVALID FOR* Coronary angioplasty status [Z98.61] INVALID FOR* Elevated troponin I level [R79.89] INVALID FOR* More... Family history of cerebrovascular accident (CVA*INVALID FOR* History of deep venous thrombosis [Z86.718] INVALID FOR* History of non-ST elevation myocardial infarcti*INVALID FOR* Ischemic cardiomyopathy [I25.5] INVALID FOR* Leukocytosis [D72.829] INVALID FOR* More... JESSICA (obstructive sleep apnea) [G47.33] INVALID FOR* RLS (restless legs syndrome) [G25.81] INVALID FOR* Localized swelling, mass and lump, neck [R22.1] INVALID FOR* Acute on chronic systolic congestive heart fail*INVALID FOR* Encounter Status:Closed by FUNMILAYO GAXIOLA LPN on 01/14/19 cbc on 2019-01-14 Absolute nRBC <0.01 <0.01 Normal 01-14-2019 [facility] ([id number]) Comment: Performed By: #### CBC #### [facility] [address] [place], [place] [address] Erythrocyte distribution 14.6 11.5-15.0 % Normal 01-14 [facility] width (RBC) [Ratio] [place] ([id number]) Comment: Performed By: #### CBC #### [facility] [address] [place], [place] [address] Hematocrit (Bld) [Volume 37.9 39.0-51.0 % Low 01-14 [facility] fraction] ([id number]) Comment: Performed By: #### CBC #### [facility] [address] [place], [place] [address] Hemoglobin (Bld) 12.0 13.0-17.0 g/dL Low 01-14-2019 Cl [facility] [Mass/Vol] [place] ([address]474) Comment: Performed By: #### CBC #### [facility] [place], [place] [address] MCH (RBC) [Entitic mass] 29.4 26.0-34.0 pG Normal 01-14 [facility] (05375) Comment: Performed By: #### CBC #### [facility] [address] [place], [place] [address] MCHC (RBC) [Mass/Vol] 31.7 30.5-36.0 g/dL Normal 01-15-20 19 [facility] ([id number]) Comment: Performed By: #### CBC #### [facility] [address] [place] [address] MCV (RBC) [Entitic vol] 92.9 80.0-100.0 fL Normal 01-14 [facility] ([id number]) Comment: Performed By: #### CBC #### [facility] [address] [address] Platelet mean volume 10.5 9.0-12.7 fL Normal 9 [facility] (Bld) [Entitic vol] [place] ([id number]) Comment: Performed By: #### CBC #### [address] [address] Platelets (Bld) [#/Vol] 154 150-400 k/uL Normal 2018 [facility] ([id number]) Comment: Performed By: #### CBC #### [address] [address] RBC (Bld) [#/Vol] 4.08 4.20-6.00 m/uL Low 01-14-2019 C [facility] (93273) Comment: Performed By: #### CBC #### [facility] [address] [place], [place] [address] WBC (Bld) [#/Vol] 4.90 3.70-11.00 k/uL Normal 01-14-2019 [facility] ([id number]) Comment: Performed By: #### CBC #### [facility] [address] [place] [id number] albumin/creat ratio on 2019-01-14 Albumin Urine Random 15.6 mg/L Normal 9 [facility] (38606) Comment: Performed By: #### UACR #### [place] [address] [place], [place] [phone] Albumin/Creat Ratio 8 <30 mg/g Normal 01-14-2019 [facility] (03889) Comment: Result Comment: Adult Male a nd Female Nephrotic Criteria: <30 mg/g is considered sheila l to mildly increased 30-300 mg/g is considered mo derately increased >300 mg/g is considered stefania rely increased KDIGO. (2013). KDIGO 2012 Cl inical Practice Guideline for the Evaluation and Management of Chronic Kidney Disease. Official Journal of the International Society of Nephrology, 3(1), 1-150. Performed By: #### UACR #### [place] [address] [place], [place] [phone] Creatinine,Urine,Ran 206.0 20-300 mg/dL Normal 9 [facility] (68346) Comment: Performed By: #### UACR #### [facility] [place], [place] [phone] cnptoutreach on 12-07-14 CNPTOUTREACH Patient Outreach (FAMPST) Normal 1 [facility] ANA ROSAALMITALOVELY CARY ([id number]) 1945 [facility] Date Time Provider Department ([id number]) 01/11/19 MORGAN VALDEZ III During your visit today, we recorded the following informati on about you: Allergies As of Date: 01/11/2019 Noted Allergy Reaction MORPHINE 02/28/2005 ROCEPHIN (CEFTRIAXONE SODIUM) 06/20/2014 14 - Other: See Com ments Comments: Hot flashes; redness to skin Date Reviewed: 12/17/2018 Reviewed by: Eufemia Maurice LPN - Fully Assessed Visit Diagnosis:Type [address] 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, with long-term current use of insulin (HCC) [E11.22, N18.3, Z79.4] Order(s):ALBUMIN/CREAT RATIO RND UR [SQUACR] Order #: [id number] FUTURE CBC [SQCBC] Order #: [id number] FUTURE Prescriptions as of 01/11/2019 Sig: LISINOPRIL 20 MG TABLET Take 1 tablet by mouth once d* CHOLECALCIFEROL (VITAMIN D3) * Take 1 capsule by mouth one t * FUROSEMIDE 40 MG TABLET Take 1 tablet by mouth twice * INSULIN LISPRO (U-100) 100 UN* 18 units with breakfast and l * ROPINIROLE 0.5 MG TABLET Take 1 tablet by mouth daily * GABAPENTIN 300 MG CAPSULE Take 1 capsule by mouth three* BIPAP Initiate BiPAP @ 24/18 cm of * FLASH GLUCOSE SENSOR KIT 1 Each four times daily. WARFARIN 3 MG TABLET Take 9 mg Tues and 6 mg all o* INSULIN NPH ISOPHANE U-100 HU* 32 units subcutaneous once da * CLOPIDOGREL 75 MG TABLET Take 1 tablet by mouth once d* INSULIN SYRINGE U-100 WITH NE* 1 Each three times daily. BACK BRACE 1 Device once daily as needed* AMIODARONE 200 MG TABLET Take 1 tablet by mouth once d* SPIRONOLACTONE 25 MG TABLET Take 1 tablet by mouth once d* WARFARIN 5 MG TABLET Take 9 mg Tues and 6 mg all o* WARFARIN 1 MG TABLET Take 9 mg Tues and 6 mg all o* ACETAMINOPHEN ER 650 MG TABLE* Take 2 tablets by mouth twice * AMLODIPINE 10 MG TABLET Take 0.5 tablets by mouth onc* CARVEDILOL 3.125 MG TABLET Take 1 tablet by mouth twice * ISOSORBIDE MONONITRATE ER 30 * Take 1 tablet by mouth once d * BLOOD SUGAR DIAGNOSTIC STRIPS Use as instructed to check bl* RANOLAZINE ER 1,000 MG TABLET* Take 1 tablet by mouth twice * FENOFIBRATE NANOCRYSTALLIZED * Take 1 tablet by mouth once d * PANTOPRAZOLE 40 MG TABLET,DEL* Take 40 mg by mouth once ajay * LANCETS Use with SmarTots Glucometer * COLESTIPOL 1 GRAM TABLET Take 1 tablet by mouth twice * ASPIRIN 81 MG TABLET Take 1 tablet by mouth once d* CRESTOR 40 MG TABLET Take one(1) tablet daily. 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* Type 2 diabetes mellitus, uncontrolled (HCC) [E*INVALID FOR* 02/19/2015 ESOPHAGEAL REFLUX [K21.9] INVALID FOR* Benign Neoplasm of Colon [D12.6] INVALID FOR* Labyrinthitis [H83.09] INVALID FOR*06/07/2014 Dermatophytosis of nail [B35.1] INVALID FOR* Atrial fibrillation [I48.91] INVALID FOR* Anticoagulated on Coumadin [Z79.01] INVALID FOR* Chronic diarrhea [K52.9] INVALID FOR*06/07/2014 Class 2 severe obesity due to excess calories w*INVALID FOR* Stasis dermatitis of both legs [I87.2] INVALID FOR* Foot callus [L84] INVALID FOR* Subsequent non-ST elevation (NSTEMI) myocardial*INVALID FOR* Syncope [R55] INVALID FOR* Hyperlipidemia LDL goal <100 [E78.5] INVALID FOR* ASHD (arteriosclerotic heart disease) [I25.10] INVALID FOR* Neurocardiogenic syncope [R55] INVALID FOR* Dysphagia [R13.10] INVALID FOR* 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 Balanitis [N48.1] INVALID FOR* Coronary angioplasty status [Z98.61] INVALID FOR* Elevated troponin I level [R79.89] INVALID FOR* More... Family history of cerebrovascular accident (CVA*INVALID FOR* History of deep venous thrombosis [Z86.718] INVALID FOR* History of non-ST elevation myocardial infarcti*INVALID FOR* Ischemic cardiomyopathy [I25.5] INVALID FOR* Leukocytosis [D72.829] INVALID FOR* More... JESSICA (obstructive sleep apnea) [G47.33] INVALID FOR* RLS (restless legs syndrome) [G25.81] INVALID FOR* Localized swelling, mass and lump, neck [R22.1] INVALID FOR* Acute on chronic systolic congestive heart fail*INVALID FOR* Encounter Status:Closed by LayerGloss, PRODUSER on 01/26/19 main or intraop record on 2017-02-23 Main OR Intraop Record Normal 02-23- 017 [facility]) ([id number]) progress note-nurse on 2017-02-17 Progress Note-Nurse Normal 02-17-2017 [facility]) ([id number]) pro on 2017-02-17 INR Coag RelTime (PPP) 1.5 ratio Normal 017 [facility]) (09092) Comment: Result Comment: [employer] (CHEST, 1991, 102:312S-25S)recommended the rapeutic range for oral anticoagulant therapy is:LOW RISK: Prophylaxis of venous thrombosis INR: 2.0-3.0 Treatment of pulmonary embolism 2.0-3.0 P revention of systemic embolism 2.0-3.0HIGH RISK: Mechanical prosthetic valves 2.5-3.5 Performed By: #### CBC, ADIF F, ANEU, FIB, APTT, PRO, BMP, GFR ####[place] [address] Prothrombin time (PT) 17.7 9.0-14.5 seconds High 02-18-20 17 [facility] Coag time (PPP) [facility]) (87081) Comment: Result Comment: Effective , Protime results may be affected by some antibiotics (i.e. Ciprofloxa patrice, Azithromycin, Bactrim) which may potentiate the action of oral anticoagu lants, with further increases in Protime/INR. Performed By: #### CBC, ADIF F, ANEU, FIB, APTT, PRO, BMP, GFR ####[place] [address] fib on 2017-02-17 Fibrinogen 302 250-550 mg/dL Normal 02-17-2017 [facility] ([place]) ([address]10) Comment: Performed By: #### CBC, ADIF F, ANEU, FIB, APTT, PRO, BMP, GFR ####[place] [address] cbc on 2017-02-17 Erythrocyte distribution 13.8 11.5-15.5 % Normal 02-17 [facility] Auto Ratio (RBC) [facility] ([place]) (80262) Comment: Performed By: #### CBC, ADIF F, ANEU, FIB, APTT, PRO, BMP, GFR ####[place] [address] Erythrocytes (RBC) 4.38 4.50-6.00 10 6/mcL Low 02-17-2017 [facility] ([place]) (0000 0) Comment: Performed By: #### CBC, ADIF F, ANEU, FIB, APTT, PRO, BMP, GFR ####[place] [address] Hematocrit (HCT) 37.6 40.0-52.0 % Low 02-17-2017 [facility] ([place]) (63784) Comment: Performed By: #### CBC, ADIF F, ANEU, FIB, APTT, PRO, BMP, GFR ####[place] [address] Hemoglobin mass conc 12.9 13.0-17.5 G/dL Low 7 [facility] (d) ([place]) (0000 0) Comment: Performed By: #### CBC, ADIF F, ANEU, FIB, APTT, PRO, BMP, GFR ####[place] [address] MCH 29.4 27.0-33.0 pg Normal 02-17-2017 [facility] ([place]) (85005) Comment: Performed By: #### CBC, ADIF F, ANEU, FIB, APTT, PRO, BMP, GFR ####[place] [address] MCHC mass conc (RBC) 34.2 32.0-36.0 G/dL Normal 7 [facility] ([place]) (0000 0) Comment: Performed By: #### CBC, ADIF F, ANEU, FIB, APTT, PRO, BMP, GFR ####[place] [address] MCV 85.9 81.0-100.0 fL Normal 02-17-2017 [facility] ([place]) (42824) Comment: Performed By: #### CBC, ADIF F, ANEU, FIB, APTT, PRO, BMP, GFR ####[place] [address] Platelet mean volume 8.0 6.4-10.5 fL Normal [address] [place] [address] (V) ([place]) (0000 0) Comment: Performed By: #### CBC, ADIF F, ANEU, FIB, APTT, PRO, BMP, GFR ####[place] [address] Platelets 164 150-450 10 3/mcL Normal 02-17-2017 [facility] ([place]) (15208) Comment: Performed By: #### CBC, ADIF F, ANEU, FIB, APTT, PRO, BMP, GFR ####[place] [address] WBC (Leukocytes) 6.10 4.50-10.80 10 3/mcL Normal 02-17-2017 [facility] ([place]) (0000 0) Comment: Performed By: #### CBC, ADIF F, ANEU, FIB, APTT, PRO, BMP, GFR ####[place] [address] bmp on 2017-02-17 BUN/Creatinine Ratio 31.8 10.0-22.0 ratio High 7 [facility] ([place]) (0000 0) Comment: Performed By: #### CBC, ADIF F, ANEU, FIB, APTT, PRO, BMP, GFR ####[place] [address] Calcium 8.8 8.4-10.1 mg/dL Normal 02-17-2017 [facility]) (32142) Comment: Performed By: #### CBC, ADIF F, ANEU, FIB, APTT, PRO, BMP, GFR ####[place] [address] Chloride 109 98-110 mEq/L Normal 02-17-2017 [facility] ([place]) (11615) Comment: Performed By: #### CBC, ADIF F, ANEU, FIB, APTT, PRO, BMP, GFR ####[place] [address] CO2 27 22-32 mEq/L Normal 02-17-2017 [facility] ([place]) (34187) Comment: Performed By: #### CBC, ADIF F, ANEU, FIB, APTT, PRO, BMP, GFR ####[place] [address] Creatinine 1.10 0.60-1.40 mg/dL Normal 02-17-2017 [facility] ([place]) (92624) Comment: Performed By: #### CBC, ADIF F, ANEU, FIB, APTT, PRO, BMP, GFR ####[place] [address] Electrolyte Balance 7.0 4.0-15.0 mEq/L Normal 02-17-2017 [facility] ([place]) (0000 0) Comment: Performed By: #### CBC, ADIF F, ANEU, FIB, APTT, PRO, BMP, GFR ####[place] [address] Glucose mass conc 99 82-115 mg/dL Normal 02-17-2017 [facility] ([place]) (47256) Comment: Performed By: #### CBC, ADIF F, ANEU, FIB, APTT, PRO, BMP, GFR ####[place] [address] Potassium molar conc 4.0 3.5-5.0 mEq/L Normal 7 [facility] ([place]) (0000 0) Comment: Performed By: #### CBC, ADIF F, ANEU, FIB, APTT, PRO, BMP, GFR ####[place] [address] Sodium 143 136-145 mEq/L Normal 02-17-2017 [facility] ([place]) (22209) Comment: Performed By: #### CBC, ADIF F, ANEU, FIB, APTT, PRO, BMP, GFR ####[place] [address] Urea nitrogen 35.0 8.0-22.0 mg/dL High 02-17-2017 [facility] ([place]) (32099) Comment: Performed By: #### CBC, ADIF F, ANEU, FIB, APTT, PRO, BMP, GFR ####[place] [address] aptt on 2017-02-17 aPTT 32.6 25.0-35.0 seconds Normal 02-17-2017 [facility] ([place]) (60509) Comment: Result Comment: For Heparin anticoagulation therapy, the recommendedtherapeutic range is: 54-77 seconds (APTT Correlationwith Anti-Xa therapeutic range of 0.3-0.7 units/ml).PLEASE REFERENCE THE PHARMACY PROTOCOL FOR DOSING. Performed By: #### CBC, ADIF F, ANEU, FIB, APTT, PRO, BMP, GFR ####[place] [address] aPTT Coumadin PO Normal 02-17-2017 [facility] ([place]) (02899) Comment: Performed By: #### CBC, ADIF F, ANEU, FIB, APTT, PRO, BMP, GFR ####[place] [address] .neuabs on Neutrophils 4.30 2.25-8.10 10 3/mcL Normal 02-17-2017 [facility] ([place]) (67418) Comment: Performed By: #### CBC, ADIF F, ANEU, FIB, APTT, PRO, BMP, GFR ####[place] [address] .gfr on 2017-02-17 eGFR (non-black) >60 mL/min/{1.73_m2} Normal 2016 [facility] ([place]) (0000 0) Comment: Result Comment: GFR Populati on mean for , Non- Americans Ages 20-29 = 116 m L/min/1.73 sq.m. Ages 30-39 = 107 mL/min/1.73 sq.m. Ages 40-49 = 99 mL/min /1.73 sq.m. Ages 50-59 = 93 mL/min/1.73 sq.m. Ages 60-69 = 85 mL/min/1.73 sq.m. Ages 70+ = 75 mL/min/1.73 sq.m.Chronic Kidney Disease: Less than 60 mL/min/1.73 square metersEnd Stage Renal Disease: Less than 15 mL/min /1.73 square meters Performed By: #### CBC, ADIF F, ANEU, FIB, APTT, PRO, BMP, GFR ####[place] [address] .auto diff on 02-17 Basophils Auto #/vol 0.10 0.00-0.27 10 3/mcL Normal 7 [facility]) [facility] ([place]) (75735) Comment: Performed By: #### CBC, ADIF F, ANEU, FIB, APTT, PRO, BMP, GFR ####[address] [address] Basophils/100 WBC Auto (Bld) 1.1 0.0-2.5 % Normal 1 04-19-2016 [facility] ([place]) (0000 0) Comment: Performed By: #### CBC, ADIF F, ANEU, FIB, APTT, PRO, BMP, GFR ####[address] [address] Eosinophils 0.20 0.00-0.65 10 3/mcL Normal 02-17-2017 [facility] ([place]) (99377) Comment: Performed By: #### CBC, ADIF F, ANEU, FIB, APTT, PRO, BMP, GFR ####[address] [address] Eosinophils/100 leukocytes 2.7 0.0-6.0 % Normal [facility] ([place]) (0000 0) Comment: Performed By: #### CBC, ADIF F, ANEU, FIB, APTT, PRO, BMP, GFR ####[address] [address] Lymphocytes 1.10 0.90-4.32 10 3/mcL Normal 02-17-2017 [facility] ([place]) (24407) Comment: Performed By: #### CBC, ADIF F, ANEU, FIB, APTT, PRO, BMP, GFR ####[address] [address] Lymphocytes/100 leukocytes 17.9 20.0-40.0 % Low [facility] ([place]) (0000 0) Comment: Performed By: #### CBC, ADIF F, ANEU, FIB, APTT, PRO, BMP, GFR ####[address] [address] Monocytes 0.50 0.09-1.40 10 3/mcL Normal 02-17-2017 [facility] ([place]) (78332) Comment: Performed By: #### CBC, ADIF F, ANEU, FIB, APTT, PRO, BMP, GFR ####[address] [address] Monocytes/100 leukocytes 8.5 2.0-13.0 % Normal 02-17 [facility] ([place]) (0000 0) Comment: Performed By: #### CBC, ADIF F, ANEU, FIB, APTT, PRO, BMP, GFR ####[facility] [place] [address] Neutrophils/100 WBC Auto 69.8 50.0-75.0 % Normal 02-17 [facility] (d) [facility] ([place]) (61268) Comment: Performed By: #### CBC, ADIF F, ANEU, FIB, APTT, PRO, BMP, GFR ####[facility] [place] [address] office visit: mmm o n 2017-01-01 Documentation of Done Invalid Interpretation 01-01-2017 - [facility] current medications Code 01-01-2017 Group ([id number]) (procedure) Fall risk assessment No Invalid Interpretat ion 01-01-2017 - [place] [facility] Code 01-01-2017 Group ([id number]) Protein mass conc Done Invalid Interpretation 01-01-2017 - [facility] Code 01-01-2017 Group ([id number]) clinical lists update: preload on 2016-12-30 Left ventricular 35 % Invalid Interpretation 12-30-2016 - [place] Ejection fraction Code 12-30-2016 [facility] (20736) chart maintenance o n 2016-11-16 Anion gap 9 mmol/L Invalid 11-16-2016 - [facility] Interpretation Code 11-16-2016 Group (44606) Anion gap 4 molar 9 Invalid 11-16-2016 - [facility] conc Interpretation Code 11-16-2016 Group ([id number]) Anion gap molar 9 mmol/L 11-16-2016 - [place] conc 11-16-2016 Medical S [employer] (37002 ) basophils as 0.5 % Invalid 11-16-2016 - [place] percent of blood Interpretation Code [facility] (605 03) manual count Calcium mass conc 8.3 mg/dL Low 11-16-2016 - [place] 11-16-2016 Medical S [employer] (48827 ) Chloride molar 105 mmol/L High 11-16-2016 - [place] conc 11-16-2016 Medical S ervice, [facility] (53598 ) Cholesterol in 30 mg/dL Low 11-16-2016 - [place] HDL mass conc 11-16-2016 Medic al Service, [facility] (23791 ) Cholesterol in 27 mg/dL Invalid 11-16-2016 - [place] LDL mass conc Interpretation Code 2016 Medical [facility], [facility] (07696 ) Cholesterol mass 124 mg/dL Invalid 11-16-2016 - [place] conc Interpretation Code 11-16-2016 Medical Service, [facility] (66977 ) CO2 25.0 mmol/L Invalid 11-16-2016 - [place] [facility] Interpretation Code 11-16-2016 Group ([id number]) CO2 ppres (BldV) 25.0 mmol/L Invalid 11-16-2016 - [place] Interpretation Code 11-16-2016 Medical Service, [facility] (59337 ) Creatinine mass 1.20 mg/dL Invalid 11-16-2016 - [place] conc Interpretation Code 11-16-2016 Medical [facility], [facility] (16161 ) eGFR (non-black) 77 mL/min/1.73 Invalid 11-16-2016 - [facility] m2 Interpretation Code 11-16-2016 Group ([id number]) eosinophils as 3.4 % Invalid 11-16-2016 - [place] percent of blood Interpretation Code Medical [facility], leukocytes, [facility] (448 91) manual count Erythrocyte 15.0 % High 11-16-2016 - [facility] distribution 11-16-2016 Group (46252) width Auto Ratio (RBC) Erythrocyte 15.0 % High 11-16-2016 - [place] distribution 11-16-2016 Medica l Service, width Ratio (RBC) [facility] (60163) GFR/1.73 sq M 63 mL/min/1.73 Invalid 11-16-2016 - [place] predicted among m2 Interpretation Code 10-29 [facility] [employer] [facility] (61730) vol rate/area (S/P/Bld) Glomerular 77 mL/min/1.73 Invalid 11-16-2016 - [place] Filtration Rate m2 Interpretation Code 10-29 [facility] (13699) Glucose mass conc 287 mg/dL High 11-16-2016 - [place] 11-16-2016 [employer] (13872 ) Hematocrit Auto 33.2 % Low 11-16-2016 - [place] [facility] Volume Fraction 11-16-2016 [facility] (69026) (Bld) Hematocrit Volume 33.2 % Low 11-16-2016 - [place] Fraction (Bld) 11-16-2016 [facility] [employer] (33054 ) Hemoglobin mass 11.4 g/dL Low 11-16-2016 - [place] conc (Bld) 11-16-2016 [employer] (17033 ) Lipoprotein.pre-b 67 mg/dL High 11-16-2016 - [place] eta mass conc 11-16-2016 [employer] (84338 ) Lymphocytes/100 26.6 % 11-16-2016 - [place] WBC (Bld) 11-16-2016 [employer] (94338 ) Lymphocytes/100 26.6 % Invalid 11-16-2016 - [place] [facility] WBC Auto (Bld) Interpretation Code 11-16 Group (03819) MCH Auto Entitic 29.9 pg Invalid 11-16-2016 - [place] mass (RBC) Interpretation Code 7 Group (10478) MCH Entitic mass 29.9 pg 11-16-2016 - [place] (RBC) 11-16-2016 [employer] (34195 ) MCHC Auto mass 34.3 g/dL Invalid 11-16-2016 - [place] [facility] conc (RBC) Interpretation Code 7 Group (36671) MCHC mass conc 34.3 g/dL 11-16-2016 - [place] (RBC) 11-16-2016 [employer] (44224 ) MCV Auto Entitic 87.1 fL Invalid 11-16-2016 - [facility] volume (RBC) Interpretation Code 017 Group (74059) MCV Entitic 87.1 fL 11-16-2016 - [place] volume (RBC) 11-16-2016 [employer] (24090 ) Monocytes/100 WBC 9.7 % 11-16-2016 - [place] (Bld) 11-16-2016 [employer] Technologies ([id number] ) Monocytes/100 WBC 9.7 % Invalid 11-16-2016 - [place] [facility] Auto (Bld) Interpretation Code 7 Group (14513) Platelet mean 9.9 fL 11-16-2016 - [place] volume Entitic 11-16-2016 [facility] Service, volume (Bld) LLC (44 691) Platelet mean 9.9 fL Invalid 11-16-2016 - [facility] volume Moiz-Annie Interpretation Code Group (61062) Entitic volume (Bld) Platelets #/vol 157 10*3/mm3 11-16-2016 - [place] (Bld) 11-16-2016 Medical S [employer] (62683 ) Platelets Auto 157 10*3/mm3 Invalid 11-16-2016 - [place] [facility] #/vol (Bld) Interpretation Code 11-17-19 17 Group ([id number]) Potassium molar 3.7 mmol/L Invalid 11-16-2016 - [place] conc Interpretation Code 11-16-2016 [facility] (72888 ) RBC #/vol (Bld) 3.81 10*6/uL Low 11-16-2016 - [place] 11-16-2016 Medical S [employer] (90510 ) RBC Auto #/vol 3.81 10*6/uL Low 11-16-2016 - [place] [facility] (Bld) 11-16-2016 Group (44 891) Sodium molar conc 139 mmol/L Invalid 11-16-2016 - [place] Interpretation Code 11-16-2016 [facility] (16044 ) Triglyceride mass 336 mg/dL High 11-16-2016 - [place] conc 11-16-2016 Appear S [employer] (74004 ) Urea nitrogen 24 mg/dL High 11-16-2016 - [place] mass conc 11-16-2016 [employer] (13522 ) Urea 20.0 mg/mg Invalid [facility]ini Interpretation Code Medical Covarity, ms mass ratio [facility] (4 [id number]) very low density 67 mg/dL High 11-16-2016 - [facility] lipoproteins 11-16-2016 Group (65416) WBC #/vol (Bld) 4.4 10*9/L 11-16-2016 - [place] 11-16-2016 Medical [employer] (19216 ) WBC Auto #/vol 4.4 10*9/L Invalid 11-16-2016 - [place] [facility] (Bld) Interpretation Code 11-16-2016 Group ([id number]) chart maintenance o n 2016-11-15 INR Coag RelTime 2.5 {INR} Invalid 11-15-2016 [facility] (PPP) Interpretation Code 11-15-2016 [employer] (00203 ) Prothrombin time 25.7 s High 11-15-2016 [facility] (PT) [facility] [employer] (64414 ) office visit on 10-03-07 Documentation of Done Invalid 09-04-2016 - [facility] current medications Interpretation Code 09-04-2016 Group ([id number]) (procedure) Fall risk assessment No Invalid Heart Interpretation Code 09-04-2016 Group ([id number]) Protein mass conc Done Invalid 09-04-2016 - [place] Interpretation Code 09-04-2016 [employer] (72632 ) clinical lists update: preload on 2016-09-03 Left ventricular 35 % Invalid Interpretation 09-03-2016 - [place] [facility] Ejection fraction Code 09-03-2016 G roup (94257) clinical lists update: preload on 2016-07-01 Anion gap 9 mmol/L Invalid 07-01-2016 - [place] Interpretation Code 07-01-2016 Heart Group (46628) BUN/Creatinine 23.1 mg/mg High 07-01-2016 - [place] Ratio 07-01-2016 Heart Heather up (54471) Calcium 8.7 mg/dL Invalid 07-01-2016 - [place] Interpretation Code 07-01-2016 Heart Group (04409) Chloride 103 mmol/L Invalid 07-01-2016 - [place] Interpretation Code 07-01-2016 [facility] Group (01583) CO2 28..0 Invalid 07-01-2016 - [place] Interpretation Code 07-01-2016 Heart Group (52205) Creatinine 1.30 mg/dL Invalid 07-01-2016 - [place] Interpretation Code 07-01-2016 [facility] Group (16662) eGFR (non-black) 70 mL/min/1.73m Invalid 07-01-2016 - [place] 2 Interpretation Code 07-01-2016 Heart Group ([id number]) eGFR (non-black) 58 mL/min/1.73m Low 07-01-2016 - [facility] 2 07-01-2016 [facility] Heather up (33605) Erythrocytes (RBC) 4.58 10*6/uL Low 07-01-2016 - [place] 07-01-2016 Heart Heather up (27176) Glucose 195 mg/dL High 07-01-2016 - [place] 07-01-2016 [facility] Heather up (28276) Hematocrit (HCT) 41.2 % Invalid 07-01-2016 - [place] Interpretation Code 07-01-2016 Heart Group (49869) Hemoglobin (HGB) 13.6 g/dL Invalid 07-01-2016 - [place] Interpretation Code 07-01-2016 Heart Group (67709) MCH 29.7 pg Invalid 07-01-2016 - [place] Interpretation Code 07-01-2016 Heart Group (93253) MCHC 33.0 g/dL Invalid 07-01-2016 - [place] Interpretation Code 07-01-2016 Heart Group ([id number]) MCV 90.0 fL Invalid 07-01-2016 - [place] Interpretation Code 07-01-2016 [facility] Group ([id number]) Platelets 172 10*3/mm3 Invalid 07-01-2016 - [place] Interpretation Code 07-01-2016 Heart Group (00211) PMV by Cindi 9.8 fL Invalid 07-01-2016 - [place] Interpretation Code 07-01-2016 [facility] Group (87489) Potassium 3.8 mmol/L Invalid 07-01-2016 - [place] Interpretation Code 07-01-2016 Heart Group ([id number]) RDW-CA 13.8 % Invalid 07-01-2016 - [place] Interpretation Code 07-01-2016 Heart Group (58176) Sodium 140 mmol/L Invalid 07-01-2016 - [place] Interpretation Code 07-01-2016 Heart Group (64653) Urea nitrogen 30 mg/dL High 07-01-2016 - [place] 07-01-2016 Heart Heather up (09687) WBC (Leukocytes) 4.9 10*9/L Invalid 07-01-2016 - [place] Interpretation Code 07-01-2016 Heart Group ([id number]) replaced document: midmark ecg observati ons on 2016-06-19 BUN (urea nitrogen) Sinus Rhythm Invalid 017 - [facility] -Frequent pvcs Interpretation 06-19-2016 Group (42172) -ventricular Code bigeminy -Right bundle branch block. - Inferior -lateral infarct (age undetermined). ABNORMAL EKG QRS axis -12 deg Invalid 06-19-2016 - [place] Interpretation 06-19-2016 Medi ana Code Service, L LC (37386) GE use only - for 428 ms Invalid 06-19-2016 - [facility] [employer] import Interpretation 06-20-19 17 Group ([id number]) when terms are not Code otherwise specified P Vader 40 deg Invalid 06-19-2016 - [place] Interpretation 06-19-2016 Medi ana Code Service, L LC (48511) P wave axis, 40 deg Invalid 06-19-2016 - [facility] electrocardiogram Interpretation 017 Group (74663) Code SC Interval 156 ms Invalid 06-19-2016 - [place] Interpretation 06-19-2016 Medi ana Code Service, L LC (38149) SC interval, 156 ms Invalid 06-19-2016 - [facility] electrocardiogram Interpretation 017 Group (17983) Code Pulse (Heart Rate) 81 BPM /min Invalid 06-19-2016 - [place] [facility] Interpretation 06-19-2016 Grou p (97454) Code QRS axis, -12 deg Invalid 06-19-2016 - [place] [facility] electrocardiogram Interpretation 017 Group (83555) Code QRS Duration 144 ms Invalid 06-19-2016 - [place] Interpretation 06-19-2016 Medi ana Code Service, L LC (74741) QRS duration, 144 ms Invalid 06-19-2016 - [facility] electrocardiogram Interpretation 017 Group (15286) Code QT Interval new path ms Invalid 06-19-2016 - [place] Interpretation 06-19-2016 Medi ana Code Service, L LC (50788) QT interval, new path ms Invalid 06-19-2016 - [place] [facility] electrocardiogram Interpretation 017 Group (28912) Code QTc Hung 428 ms Invalid 06-19-2016 - [place] Interpretation 06-19-2016 Medi ana Code Service, L LC ([id number]) T Vader -1 deg Invalid 06-19-2016 - [place] Interpretation 06-19-2016 Medi ana Code Service, L LC (78788) T wave axis, -1 deg Invalid 06-19-2016 - [facility] electrocardiogram Interpretation 017 Group (30869) Code Urea nitrogen mass Sinus Rhythm 06-20-19 17 - [place] conc -Frequent pvcs 06-19-2016 [facility] ana -ventricular Service , [facility] bigeminy -Right (446 91) bundle branch block. - Inferior -lateral infarct (age undetermined). ABNORMAL office visit on 09-29-22 Documentation of Done Invalid Interpretation 06-19-2016 - [facility] current medications Code 06-19-2016 Group ([id number]) (procedure) Fall risk assessment No Invalid Interpretat ion 06-19-2016 - [place] [facility] Code 06-19-2016 Group (84 101) lab report: magnesium on 2016-06-19 Magnesium 2.0 1.8-2.4 mg/dL Invalid Interpretation 017 - [place] [facility] Code 06-19-2016 Group ([id number]) lab report: basic metabolic profile (bmp ) on 2016-06-19 Anion gap 8 5-15 mmol/L Invalid 06-19-2016 - [place] [facility] Interpretation 06-19-2016 Grou p (91091) Code BUN/Creatinine 20.4 10-20 High 06-19-2016 - [place] [facility] Ratio RATIO 06-19-2016 Group (78 991) Calcium 9.1 8.5-10.1 mg/dL Invalid 06-19-2016 - [facility] Interpretation 06-19-2016 Grou p ([id number]) Code Chloride 103 98-107 mmol/L Invalid 06-19-2016 - [facility] Interpretation 06-19-2016 Grou p ([id number]) Code CO2 30.0 21.0-32. mmol/L Invalid 06-19-2016 - [facility] 0 Interpretation 06-19-2016 Grou p ([id number]) Code Creatinine 1.13 0.70-1.3 mg/dL Invalid 06-19-2016 - [place] [facility] 0 Interpretation 06-19-2016 Grou p ([id number]) Code eGFR 82 >60 mL/min Invalid 06-19-2016 - [place] [facility] (non-black) Interpretation 06-19-2016 Gr oup (67923) Code eGFR 68 >60 mL/min Invalid 06-19-2016 - [facility] (non-black) Interpretation 06-19-2016 Gr oup (58648) Code EST GFR - AA 82 >60 mL/min Invalid 06-19-2016 - [place] Interpretation 06-19-2016 [facility] ana Code Service, L LC ([id number]) Glucose 93 70-110 mg/dL Invalid 06-19-2016 - [facility] Interpretation 06-19-2016 Grou p ([id number]) Code Potassium 3.9 3.5-5.1 mmol/L Invalid 06-19-2016 - [facility] Interpretation 06-19-2016 Grou p ([id number]) Code Sodium 141 136-145 mmol/L Invalid 06-19-2016 - [place] [facility] Interpretation 06-19-2016 Grou p ([id number]) Code Urea nitrogen 23 7-18 mg/dL High 06-19-2016 - [facility] 06-19-2016 Group (44 591) clinical lists update: preload on 2016-05-31 Hematocrit (HCT) 36.8 % Low 05-31-2016 - [place] [facility] 05-31-2016 Group (44 021) Hemoglobin (HGB) 11.9 g/dL Low 05-31-2016 - [place] [facility] 05-31-2016 Group (44 411) Platelets 152 10*3/mm3 Invalid 05-31-2016 - [place] [facility] Interpretation Code 05-31-2016 Group ([id number]) lab report: liver profile on 2016-05-21 Alanine 33 12-78 U/L Invalid 05-21-2016 - [facility] aminotransferase Interpretation 05-21-19 17 Group ([id number]) (ALT) Code Albumin 4.1 3.4-5.0 g/dL Invalid 05-21-2016 - [place] [facility] Interpretation 05-21-2016 Grou p ([id number]) Code Alkaline phosphatase 60 45-117 U/L Invalid 7 - [place] [facility] (ALP) Interpretation 05-21-2016 Grou p ([id number]) Code ALP enzyme act/vol 60 45-117 U/L Invalid 05-21-2016 - [place] (Bld) Interpretation 05-21-2016 Medi ana Code Service, L LC (66055) Aspartate 27 15-37 U/L Invalid 05-21-2016 - [place] [facility] aminotransferase Interpretation 05-21-19 17 Group ([id number]) (AST) Code Bilirubin (direct) 0.06 0.00-0.30 mg/dL Invalid 05-21-2016 - [place] [facility] Interpretation 05-21-2016 Grou p ([id number]) Code Bilirubin (total) 0.40 0.20-1.00 mg/dL Invalid 05-21-2016 - [facility] Interpretation 05-21-2016 Grou p ([id number]) Code Globulin 2.9 2.3-3.5 g/dL Invalid 05-21-2016 - [place] [facility] Interpretation 05-21-2016 Grou p ([id number]) Code Globulin mass conc 2.9 2.3-3.5 g/dL 05-21-2016 - [place] (S) 05-21-2016 Medical Service, LC ([id number]) Protein 7.0 6.4-8.2 g/dL Invalid 05-21-2016 - [facility] Interpretation 05-21-2016 Grou p ([id number]) Code lab report: lipid profile on 2016-05-21 Cholesterol 140 200 mg/dL Invalid 05-21-2016 - [place] [facility] Interpretation Code 05-21-2016 Group (99611) HDL Cholesterol 40 mg/dL Invalid 05-21-2016 - [place] [facility] Interpretation Code 05-21-2016 Group ([id number]) LDL Cholesterol 68 0-130 mg/dL Invalid 05-21-2016 - [place] [facility] Interpretation Code 05-21-2016 Group (23961) Triglyceride 158 mg/dL Invalid 05-21-2016 - [facility] Interpretation Code 05-21-2016 Group (76586) very low density 32 5-40 mg/dL Invalid 05-21-2016 - [place] [facility] lipoproteins Interpretation Code 017 Group (51097) office visit on 09-09-15 Dietary yes Invalid 03-14-2016 - [place] [facility] management Interpretation Code 6 Group (93466) education, guidance, and counseling (procedure) Tobacco smoking Former Invalid 03-14-2016 - [place] status NHIS smoker Interpretation Code 03-14-20 Medical Service, [facility] ([id number] ) Tobacco use CPHS Former Invalid 03-14-2016 - [facility] smoker Interpretation Code 03-14-2016 Group ([id number]) lab report: prothrombin time w/inr on 2016-03-14 Coagulation 18.7 SECONDS 11.7-14.9 High 03-14-2016 - [place] tissue factor 03-14-2016 Heart Group induced in (22650) platelet poor plasma INR in blood by 1.6 {INR Invalid 03-14-2016 - [place] coagulation } Interpretation 03-14-2016 He art Group Code ([id number]) lab report: prothrombin time fingerstick on 2016-02-15 Coagulation 12.9 SEC 11.9-14.4 Invalid 02-15-2016 - [place] tissue factor Interpretation Code 2015 Heart Group induced in (01836) platelet poor plasma lab report: cbc-complete blood cnt no di ff on 2016-01-30 Erythrocyte 44.7 35.1-43.9 fL High 01-30-2016 - [place] [facility] distribution 01-30-2016 Group (26584) width Auto Ratio (RBC) Erythrocyte 44.7 35.1-43.9 fL High 01-30-2016 - [place] distribution 01-30-2016 Medica l width Ratio [facility] (RBC) (60253) Erythrocytes 4.60 4.6-6.2 10*6/u Invalid 01-30-2016 - [facility] (RBC) L Interpretation 01-30-2016 Grou p ([id number]) Code MCH 29.8 27.0-32.0 pg Invalid 01-30-2016 - [facility] Interpretation 01-30-2016 Grou p ([id number]) Code MCHC 33.9 32-36 Invalid 01-30-2016 - [place] [facility] G/GL Interpretation 01-30-2016 Grou p (87194) Code MCV 87.8 80-94 fL Invalid 01-30-2016 - [place] [facility] Interpretation 01-30-2016 Grou p (37652) Code PMV by 9.8 6.2-12.0 fL Invalid 01-30-2016 - [facility] Moiz-Annie Interpretation 01-30-2016 Heather up (87907) Code RDW SD 44.7 35.1-43.9 fL High 01-30-2016 - [place] [facility] 01-30-2016 Group (44 061) RDW-CA 14.0 11.6-14.6 % Invalid 01-30-2016 - [facility] Interpretation 01-30-2016 Grou p ([id number]) Code red blood cell 44.7 35.1-43.9 fL High 01-30-2016 - [place] [facility] distribution 01-30-2016 Group (98135) width, size density WBC (Leukocytes) 5.5 4.4-11.0 10*9/L Invalid 01-30-2016 - [place] [facility] Interpretation 01-30-2016 Grou p (45043) Code clinical lists update: preload on 2016-01-16 Left ventricular 35 % Invalid Interpretation 01-16-2016 - [facility] Ejection fraction Code 01-16-2016 G roup ([id number]) lab report: bedside glucose on 2014-12-15 Glucose 227 70-110 mg/dL High 12-15-2014 - [facility] 12-15-2014 ([id number]) Glucose mass conc 227 70-110 mg/dL High 12-15-2014 [facility] 12-15-2014 [employer] ([id number]) clinical lists update: preload on 2014-12-08 Cholesterol in 2.93 Invalid 12-08-2014 - [facility] LDL/Cholesterol in HDL Interpretation Co de 12-08-2014 Medical [facility] (4465 1) Cholesterol to HDL 5.85 High 12-08-2014 - [place] [facility] Ratio 12-08-2014 Group (44 691) HbA1c 7.1 % High 12-08-2014 - [facility] 12-08-2014 Group (44 691) LDL/HDL ratio, serum 2.93 Invalid 5 - [facility] Interpretation Code 12-08-2014 Group ([id number]) office visit on 07-10-15 cardiac risk group C Invalid Interpretatio n 03-14-2014 - [place] [facility] Code 03-14-2014 Group (44 131) General cardiovascular N/A Invalid Interpret ation 03-14-2014 - [place] [facility] disease 10Y risk [#] Code 4 Group ([id number]) [place] replaced document: midmark ecg observati ons on 2012-03-04 Pulse (Heart 430 ms Invalid Interpretation -0 - [place] [facility] Rate) Code 03-04-2012 Group (44 151) clinical lists update: preload on 2011-03-15 [facility] 34.7 % Invalid Interpretation 011 - [facility] Group Code 03-15-2011 ([id number]) [facility] mass conc 34.7 % 03-15-2011 - [facility] (RBC) 03-15-2011 [employer] ([id number]) Vital Signs Vital Sign Description Value / Unit Date Location The following section is limited to 5 en tries per type and includes entries from the following time range: [id number] - 5. BMI (Body Mass Index) 38.16 kg/m2 01-01-2017 - 01-01-2017 [facility] ([id number]) BMI (Body Mass Index) 37.35 kg/m2 09-04-2016 - 09-04-2016 [facility] (47247) BMI (Body Mass Index) 36.94 kg/m2 06-19-2016 - 06-19-2016 [facility] ([id number]) BP Diastolic 80 mm[Hg] 01-01-2017 - 01-01-2017 [place] [facility] ([id number]) BP Diastolic 50 mm[Hg] 09-04-2016 - 09-04-2016 [facility] ([id number]) BP Diastolic 70 mm[Hg] 06-19-2016 - 06-19-2016 [facility] ([id number]) BP Diastolic 90 mm[Hg] 03-29-2015 - 03-29-2015 [facility] (17927) BP Diastolic 96 mm[Hg] 03-29-2015 - 03-29-2015 [place] [facility] (45481) BP Systolic 134 mm[Hg] 01-01-2017 - 01-01-2017 [place] [facility] (49703) BP Systolic 90 mm[Hg] 09-04-2016 - 09-04-2016 [facility] (39865) BP Systolic 110 mm[Hg] 06-19-2016 - 06-19-2016 [facility] ([id number]) BP Systolic 122 mm[Hg] 03-29-2015 - 03-29-2015 [place] [facility] (31098) BP Systolic 120 mm[Hg] 03-29-2015 - 03-29-2015 [facility] (15854) BSA (Body Surface Area) 2.21 m2 03-14-2016 - 03-14-2016 [facility] (39275) Heart rate 81 /min 06-19-2016 - 06-19-2016 [facility] (44 691) Heart rate 430 ms 03-04-2012 - 03-04-2012 [facility] (44 691) Height 172.72 cm 01-01-2017 - 01-01-2017 [facility] (46054) Height 172.72 cm 09-04-2016 - 09-04-2016 [facility] (92772) Height 172.72 cm 06-19-2016 - 06-19-2016 [place] [facility] (45714) Pulse (Heart Rate) 64 /min 01-01-2017 - 01-01-2017 [facility] (28804) Pulse (Heart Rate) 64 /min 09-04-2016 - 09-04-2016 [facility] ([id number]) Pulse (Heart Rate) 80 /min 06-19-2016 - 06-19-2016 [facility] (27662) Respiratory Rate 20 /min 01-01-2017 - 01-01-2017 [place] [facility] ([id number]) Respiratory Rate 20 /min 09-04-2016 - 09-04-2016 [facility] (74189) Respiratory Rate 20 /min 06-19-2016 - 06-19-2016 [facility] (44836) Weight 113.85 kg 01-01-2017 - 01-01-2017 [place] [facility] (16497) Weight 111.45 kg 09-04-2016 - 09-04-2016 [facility] (43929) Weight 110.22 kg 06-19-2016 - 06-19-2016 [facility] ([id number]) Encounters Date Type Reason Provider Location 02-17-2017 - Ambulatory KI ESTAFANOUS Facility:A 02-17-2017 12-13-2019 - Chart abstracting Morgan langley [place] 12-13-2019 Comment: Outside Lab Results (CBC, BM P) 01-07-2020 - 01-07-2020 Patient encounter Morgan [facility] procedure [place] Comment: Non-Urgent Medical Question 12-18-2019 - 12-18-2019 Patient encounter Morgan Vee[facility] procedure [place] Comment: RE: Non-Urgent [facility] 12-06-2019 - Patient encounter Pharmacist [facility] 12-06-2019 procedure Inr 11-23-2019 - Patient encounter [facility] 11-23-2019 procedure Inr 11-21-2019 - Patient encounter Type 2 diabetes Denita Thorpe [facility] 11-21-2019 procedure mellitus (Pharmacist) Comment: Type 2 diabetes mellitus wit h st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, with long-term current use of insulin (HCC) (Primary Dx) 11-13-2019 - 11-13-2019 Patient encounter Morgan [facility] procedure [facility] Comment: RE: Non-Urgent [facility] 11-10-2019 - Patient encounter External [facility] 11-10-2019 procedure Provider 01-06-2020 - Refill Type 2 diabetes Morgan Mooney [facility] cine 01-06-2020 mellitus [place] Comment: Refill Request 12-07-2019 - 12-07-2019 Refill Type 2 diabetes Morgan [facility] mellitus [facility] Comment: Refill Request 12-06-2019 Results Only Pharmacist [facility] 11-23-2019 Results Only Pharmacist [facility] 11-10-2019 - Results Only External Provider External-N [facility] 11-10-2019 12-27-2019 - Telephone encounter Morgan Mooney [facility] 12-27-2019 [facility] Comment: Patient Question 12-20-2019 - Telephone Paroxysmal atrial [facility] mbulatory 12-20-2019 encounter fibrillation (Pharmacist) Telemanagement Comment: Anticoagulation Telephone Fu (Home INR result) 12-08-2019 - 12-08-2019 Telephone encounter Morgan Mooney [facility] Comment: [facility] OT POC 12-06-2019 - Telephone Paroxysmal atrial [facility] A mbulatory 12-06-2019 encounter fibrillation (Pharmacist) Telemanagement Comment: Anticoagulation Telephone Fu (Home INR result) 11-30-2019 - Telephone encounter Denita Thorpe (Pharmacis t) [facility] 11-30-2019 Comment: insulin did not arrive 11-23-2019 - Telephone encounter Denita Thorpe (Pharmacis t) [facility] 11-23-2019 Comment: Medication Update Procedures Procedure Name Date Provider Location BMP - EXTERNAL 12-09-2019 [facility] Provider [facility] ([id number]) CBCDIF (EXTERNAL) 12-09-2019 [facility] ([id number]) INR Coag (PPP) [Relative 12-06-2019 Pharmacist Home [facility] ([id number]) INR Coag (PPP) [Relative 11-23-2019 Pharmacist Home Inr [facility]] ([id number]) EXTERNAL CARDIOLOGY 11-10-2019 External Provider [facility] ([id number]) EXTERNAL IMAGING 11-10-2019 External Provider [facility] ([id number]) Colonoscopy 01-06-2018 - [facility] 01-06-2018 ([id number]) Prgrmng dev eval 01-30-2017 - MD [facility] implantable in persn 1 ld 02-02-2017 ([id number] ) dfb Follow Up Appt 3 months 10-30-2016 - MD [facility] 12-17-2016 ([id number]) Pacer Clinic 10-30-2016 - MD [facility] 12-17-2016 ([id number]) Prgrmng dev eval 10-30-2016 - MD [facility] implantable in persn 1 ld 10-30-2016 ([id number] ) dfb Icd device prog eval, 1 10-30-2016 - MD [facility] sngl 10-30-2016 ([id number]) Follow Up Appt 3 months 09-04-2016 - MD [facility] 12-17-2016 ([id number]) MMM 09-04-2016 - MD [facility] 12-17-2016 ([id number]) Follow Up Appt 3 months 07-30-2016 - MD [facility] 11-17-2016 ([id number]) Pacer Clinic 07-30-2016 - MD [facility] 11-17-2016 ([id number]) Prgrmng dev eval 07-30-2016 - MD [facility] implantable in persn 1 ld 07-30-2016 ([id number] ) dfb Icd device prog eval, 1 07-30-2016 - MD [facility] sngl 11-17-2016 ([id number]) Pacer Clinic 07-30-2016 - MD Darlyn Rogers Wi dical 11-17-2016 [employer] ([id number]) *BMP 06-19-2016 - MD [facility] 06-19-2016 ([id number]) PRODUCTION TESTER 06-19-2016 - MD [facility] 06-19-2016 ([id number]) Follow Up Appt 3 months 06-19-2016 - MD [facility] 11-17-2016 ([id number]) Magnesium [Mass/volume] in 06-19-2016 - MD [facility] Serum or Plasma 06-19-2016 ([id number]) Pacer Clinic 06-19-2016 - MD [facility] 11-17-2016 ([id number]) Prgrmng dev eval 06-19-2016 - MD [facility] implantable in persn 1 ld 06-23-2016 ([id number] ) dfb Referral to tile and marble installer 06-19-2016 - MD [facility] 06-20-2016 ([id number]) *BMP 06-19-2016 - MD [facility] 06-19-2016 ([id number]) PRODUCTION TESTER 06-19-2016 - MD [facility] 06-19-2016 ([id number]) Follow Up Appt 3 months 06-19-2016 - MD [facility] 11-17-2016 ([id number]) Icd device prog eval, 1 06-19-2016 - MD [facility] sngl 06-23-2016 ([id number]) Magnesium 06-19-2016 - MD [facility] 06-19-2016 ([id number]) Pacer Clinic 06-19-2016 - MD Darlyn Roegrs Wi dical 11-17-2016 [employer] ([id number] [phone]) Referral to tile and marble installer 06-19-2016 - Johan Perry MD [facility] 06-20-2016 [employer] ([phone]) *Hepatic Function Panel 05-21-2016 - MD [facility] 05-21-2016 ([id number]) Lipid 1996 panel - Serum or 05-21-2016 - MD Pauline [facility] Plasma 05-21-2016 ([id number]) *Hepatic Function Panel 05-21-2016 - MD [facility] 05-21-2016 ([id number]) Lipid panel [AGGREGATE] 05-21-2016 - MD [facility] 05-21-2016 ([id number]) Follow Up Appt 3 months 04-30-2016 - MD [facility] 11-17-2016 ([id number]) Pacer Clinic 04-30-2016 - MD [facility] 11-17-2016 ([id number]) Prgrmng dev eval 04-30-2016 - MD [facility] implantable in persn 1 ld 11-17-2016 ([id number] ) dfb Icd device prog eval, 1 04-30-2016 - MD Maxim [facility] Group sngl 11-17-2016 ([id number]) Pacer Clinic 04-30-2016 - MD Darlyn Rogers Me dical 11-17-2016 [employer] ([id number]) Carotid duplex 03-14-2016 - MD [facility] 04-01-2016 ([id number]) Follow Up Appt 3 months 03-14-2016 - MD [facility] 03-14-2016 ([id number]) INR in Platelet poor plasma 03-14-2016 - MD [facility] by Coagulation assay 03-14-2016 ([id number]) MMM 03-14-2016 - MD [facility] 03-14-2016 ([id number]) Dietary management 03-14-2016 - Darlyn galaviz education, guidance, and 03-14-2016 [employer] ([id number]) counseling Carotid duplex 03-14-2016 - MD [facility] 04-01-2016 ([id number]) Coagulation factor 03-14-2016 - MD [facility] induced.INR assay in 03-14-2016 ([id number]) platelet poor plasma Follow Up Appt 3 months 03-14-2016 - MD [facility] 03-14-2016 ([id number]) MMM 03-14-2016 - MD [facility] 03-14-2016 ([id number]) *BMP 01-30-2016 - MD [facility] 01-30-2016 ([id number]) CBC W Auto Differential 01-30-2016 - MD [facility] panel - Blood 01-30-2016 ([id number]) Chest x-ray 01-30-2016 - MD [facility] 02-08-2016 ([id number]) Ecg routine ecg w/least 12 01-30-2016 - MD Jose [facility] lds w/i&r 01-30-2016 ([id number]) Follow Up Appt 6 weeks 01-30-2016 - MD [facility] 01-30-2016 ([id number]) INR in Platelet poor plasma 01-30-2016 - MD Pauline [facility] by Coagulation assay 01-30-2016 ([id number]) Left Heart Cath 01-30-2016 - MD [facility] 05-21-2016 ([id number]) MMM 01-30-2016 - MD [facility] 01-30-2016 ([id number]) Us abdominal real time 01-30-2016 - MD [facility] w/image limited 02-08-2016 ([id number]) *BMP 01-30-2016 - MD [facility] 01-30-2016 ([id number]) CBC W Auto Differential 01-30-2016 - MD [facility] panel - Blood 01-30-2016 ([id number]) Chest x-ray 01-30-2016 - MD [facility] 02-08-2016 ([id number]) Coagulation factor 01-30-2016 - MD [facility] induced.INR assay in 01-30-2016 ([id number]) platelet poor plasma Echo exam of abdomen 01-30-2016 - MD [facility] 02-08-2016 ([id number]) Electrocardiogram, complete 01-30-2016 - MD [facility] 01-30-2016 ([id number]) Follow Up Appt 6 weeks 01-30-2016 - MD [facility] 01-30-2016 ([id number]) Left Heart Cath 01-30-2016 - MD [facility] 05-21-2016 ([id number]) MMM 01-30-2016 - MD [facility] 01-30-2016 ([id number]) Follow Up Appt 3 months 01-23-2016 - [facility] 11-17-2016 PA-C ([id number]) Pacer Clinic 01-23-2016 - Oziel Timmons [facility] 11-17-2016 PA-C ([id number]) Prgrmng dev eval 01-23-2016 - [facility]iel [facility] implantable in persn 1 ld 01-23-2016 PA-C ([id number] ) dfb Chest x-ray 01-23-2016 - Melany Khanna [facility] 11-17-2016 PA-C Service, [employer] ([id number]) Ecg routine ecg w/least 12 01-23-2016 - Melany Khanna [facility] w/i&r 11-17-2016 PA-C Service, [employer] ([id number]) Icd device prog eval, 1 01-23-2016 - Pauline Timmons [facility] sngl 01-23-2016 PA-C ([id number]) *Hepatic Function Panel 11-05-2015 - MD Pauline [facility] 11-20-2015 ([id number]) Lipid 1996 panel - Serum or 11-05-2015 - Johan Perry MD [facility] Plasma 11-20-2015 ([id number]) *Hepatic Function Panel 11-05-2015 - MD [facility] 11-20-2015 ([id number]) Lipid panel [AGGREGATE] 11-05-2015 - MD [facility] 11-20-2015 ([id number]) Follow Up Appt 3 months 10-18-2015 - Jorge Lin [facility] 02-08-2016 ([id number]) Pacer Clinic 10-18-2015 - [facility] 02-08-2016 ([id number]) Prgrmng dev eval 10-18-2015 - [facility] implantable in persn 1 ld 10-18-2015 ([id number] ) dfb Follow Up Appt 3 months 10-18-2015 - [facility] 02-08-2016 ([id number]) Icd device prog eval, 1 10-18-2015 - [facility] sngl 10-18-2015 ([id number]) Pacer Clinic 10-18-2015 - [facility] 02-08-2016 ([id number]) Follow Up Appt 3 months 07-18-2015 - MD [facility] 02-08-2016 ([id number]) Pacer Clinic 07-18-2015 - MD Pauline [facility] 02-08-2016 ([id number]) Prgrmng dev eval 07-18-2015 - MD [facility] implantable in persn 1 ld 07-18-2015 ([id number] ) dfb Follow Up Appt 3 months 07-18-2015 - MD [facility] 02-08-2016 ([id number]) Icd device prog eval, 1 07-18-2015 - MD [facility] sngl 02-08-2016 ([id number]) Pacer Clinic 07-18-2015 - MD Pauline [facility] 02-08-2016 ([id number]) PRODUCTION TESTER 07-03-2015 - MD Pauline [facility] 07-03-2015 ([id number]) Follow Up Appt 6 months 07-03-2015 - MD [facility] 07-03-2015 ([id number]) PRODUCTION TESTER 07-03-2015 - Johan Perry MD [place] [facility] 07-03-2015 ([id number]) Follow Up Appt 6 months 07-03-2015 - MD [facility] 07-03-2015 ([id number]) *Hepatic Function Panel 06-20-2015 - Melany Khanna [facility] 06-20-2015 PA-C ([id number]) Lipid 1996 panel - Serum or 06-20-2015 - Melany Khanna [facility] Plasma 06-20-2015 PA-C ([id number]) *Hepatic Function Panel 06-20-2015 - Melany Khanna [facility] 06-20-2015 PA-C ([id number]) Lipid panel [AGGREGATE] 06-20-2015 - Melany Khanna [facility] 06-20-2015 PA-C ([id number]) Follow Up Appt 3 months 04-13-2015 - MD [facility] 02-08-2016 ([id number]) Pacer Clinic 04-13-2015 - Johan Perry MD [facility] 02-08-2016 ([id number]) Prgrmng dev eval 04-13-2015 - MD Pauline [facility] implantable in persn 1 ld 04-14-2015 ([id number] ) dfb Follow Up Appt 3 months 04-13-2015 - MD [facility] 02-08-2016 ([id number]) Icd device prog eval, 1 04-13-2015 - MD [facility] sngl 04-14-2015 ([id number]) Pacer Clinic 04-13-2015 - MD [facility]ine [facility] 02-08-2016 ([id number]) Us abdominal real time 04-11-2015 - MD Pauline [facility] w/image limited 04-12-2015 ([id number]) Echo exam of abdomen 04-11-2015 - MD [facility] 04-12-2015 ([id number]) External Counterpulsation 04-06-2015 - [facility]iel [facility] Therapy 11-17-2016 PA-C ([id number]) Prgrmng dev eval 04-06-2015 - Juan Timmons on [employer] implantable in persn 1 ld 11-17-2016 PA-C [employer] ([id number]) dfb PRODUCTION TESTER 03-29-2015 - [facility] 03-29-2015 PA-C ([id number]) Follow Up Appt 3 months 03-29-2015 - Melany Khanna [facility] 03-29-2015 PA-C ([id number]) PRODUCTION TESTER 03-29-2015 - Melany Khanna [facility] 03-29-2015 PA-C ([id number]) Follow Up Appt 3 months 03-29-2015 - Melany Khanna [facility] 03-29-2015 PA-C ([id number]) Follow Up Appt 3 months 01-05-2015 - Melany Khanna [facility] 03-05-2015 PA-C ([id number]) Pacer Clinic 01-05-2015 - [facility] 03-05-2015 PA-C ([id number]) Prgrmng dev eval 01-05-2015 - Oziel Tim[facility] implantable in persn 1 ld 01-08-2015 PA-C ([id number] ) dfb Follow Up Appt 3 months 01-05-2015 - Melany Khanna [facility] 03-05-2015 PA-C ([id number]) Icd device prog eval, 1 01-05-2015 - Melany Khanna, [facility] sngl 01-08-2015 PA-C ([id number]) Pacer Clinic 01-05-2015 - Melany Khanna, [facility] 03-05-2015 PA-C ([id number]) Cardiac Rehab 12-27-2014 - MD [facility]ine [facility] 03-05-2015 ([id number]) Documentation of current 12-27-2014 - MD Tommy [facility] medications 12-28-2014 ([id number]) Follow Up Appt 3 months 12-27-2014 - MD [facility] 12-27-2014 ([id number]) MMM 12-27-2014 - MD [facility] 12-27-2014 ([id number]) Pedal pulse taking 12-27-2014 - MD Oziel [facility] 12-28-2014 ([id number]) Cardiac Rehab 12-27-2014 - MD Pauline [facility] 03-05-2015 ([id number]) Documentation of current 12-27-2014 - Johan Perry MD [facility] medications 12-28-2014 ([id number]) Follow Up Appt 3 months 12-27-2014 - MD Maxim [facility] 12-27-2014 ([id number]) MMM 12-27-2014 - Johan Perry MD [facility] 12-27-2014 ([id number]) Pedal pulse taking 12-27-2014 - MD [facility] 12-28-2014 ([id number]) Follow Up BP Check 12-11-2014 - Melany Khanna [place] [facility] 12-11-2014 PA-C ([id number]) Left Heart Cath 12-11-2014 - MD Pauline [facility] 03-05-2015 ([id number]) Follow Up BP Check 12-11-2014 - Melany Khanna [place] [place] [facility] 12-11-2014 PA-C ([id number]) Left Heart Cath 12-11-2014 - MD [facility] 03-05-2015 ([id number]) *BMP 12-06-2014 - [facility] 12-06-2014 PA-C ([id number]) Documentation of current 12-06-2014 - Melany Khanna [facility] medications 12-07-2014 PA-C ([id number]) Follow Up Appt Other 12-06-2014 - Melany Khanna [facility] 12-06-2014 PA-C ([id number]) *BMP 12-06-2014 - [facility] 12-06-2014 PA-C ([id number]) Documentation of current 12-06-2014 - Alejandro Timmons [facility] medications 12-07-2014 PA-C ([id number]) Follow Up Appt Other 12-06-2014 - Melany Khanna [facility] 12-06-2014 PA-C ([id number]) Lipid 1996 panel - Serum or 11-28-2014 - Melany Khanna [place] Plasma 12-21-2014 PA-C ([id number]) Lipid panel [AGGREGATE] 11-28-2014 - Melany Khanna [facility] 12-21-2014 PA-C ([id number]) Documentation of current 11-03-2014 - Johan Perry MD [facility] medications 11-04-2014 ([id number]) Follow Up Appt 6 months 11-03-2014 - MD Maxim [facility] 11-03-2014 ([id number]) MMM 11-03-2014 - MD [facility]iel [facility] 11-03-2014 ([id number]) Pedal pulse taking 11-03-2014 - MD Oziel [facility] 11-04-2014 ([id number]) Preoperative cardiovascular 11-03-2014 - Paulineos [facility] examination 12-25-2014 ([id number]) Documentation of current 11-03-2014 - Johan Perry MD [facility] medications 11-04-2014 ([id number]) Follow Up Appt 6 months 11-03-2014 - MD Maxim [facility] 11-03-2014 ([id number]) MMM 11-03-2014 - MD [facility] 11-03-2014 ([id number]) Pedal pulse taking 11-03-2014 - MD Oziel [facility] 11-04-2014 ([id number]) Preoperative cardiovascular 11-03-2014 - [place] [facility] examination 12-25-2014 [employer] ([phone]) [facility] 09-27-2014 - [facility] 09-27-2014 PA-C ([id number]) Documentation of current 09-27-2014 - Alejandro Tmimons [facility] medications 09-28-2014 PA-C ([id number]) Ecg routine ecg w/least 12 09-27-2014 - [facility]ine [facility] lds w/i&r 11-03-2014 PA-C Johan Perry MD ([id number]) Follow Up Appt 3 months 09-27-2014 - MD Maxim [facility] 11-03-2014 ([id number]) Follow Up Appt 6 months 09-27-2014 - Pauline Timmons [facility] 09-27-2014 PA-C ([id number]) Pacer Clinic 09-27-2014 - MD Paul[facility] 11-03-2014 ([id number]) Pedal pulse taking 09-27-2014 - Melany Khanna [place] [facility] 09-28-2014 PA-C ([id number]) Prgrmng dev eval 09-27-2014 - Johan Perry MD [place] [facility] implantable in persn 1 ld 09-28-2014 ([id number] ) dfb PRODUCTION TESTER 09-27-2014 - [facility] 09-27-2014 PA-C ([id number]) Documentation of current 09-27-2014 - Alejandro Timmons [facility] medications 09-28-2014 PA-C ([id number]) Follow Up Appt 3 months 09-27-2014 - Johan Perry MD [facility] 11-03-2014 ([id number]) Follow Up Appt 6 months 09-27-2014 - Melany Khanna [facility] 09-27-2014 PA-C ([id number]) Icd device prog eval, 1 09-27-2014 - Johan Perry MD [facility] sngl 09-28-2014 ([id number]) Pacer Clinic 09-27-2014 - Johan Perry MD [facility] 11-03-2014 ([id number]) Pedal pulse taking 09-27-2014 - Melany Khanna [facility] 09-28-2014 PA-C ([id number]) Pulse (Heart Rate) 09-27-2014 - Melany Khanna [facility] 11-03-2014 PA-C Johan Perry MD ([id number]) *Hepatic Function Panel 07-28-2014 - Johan Perry MD [facility] 08-25-2014 ([id number]) Lipid 1996 panel - Serum or 07-28-2014 - Johan Perry MD [facility] Plasma 08-25-2014 ([id number]) *Hepatic Function Panel 07-28-2014 - Johan Perry MD [facility] 08-25-2014 ([id number]) Lipid panel [AGGREGATE] 07-28-2014 - Johan Perry MD [facility] 08-25-2014 ([id number]) Follow Up Appt 3 months 06-12-2014 - Melany Khanna [facility] 09-15-2014 PA-C ([id number]) Pacer Clinic 06-12-2014 - [facility]iel [facility] 09-15-2014 PA-C ([id number]) Prgrmng dev eval 06-12-2014 - Oziel Timmons [facility] implantable in persn 1 ld 06-13-2014 PA-C ([id number] ) dfb Follow Up Appt 3 months 06-12-2014 - Melany Khanna [facility] 09-15-2014 PA-C ([id number]) Icd device prog eval, 1 06-12-2014 - Melany Khanna [facility] sngl 06-13-2014 PA-C ([id number]) Pacer Clinic 06-12-2014 - [facility] 09-15-2014 PA-C ([id number]) Follow Up Appt 3 months 03-14-2014 - Johan Perry MD [facility] 09-15-2014 ([id number]) Follow Up Appt 6 months 03-14-2014 - MD Maxim [facility] 03-14-2014 ([id number]) [facility] 03-14-2014 - Johan Perry MD [place] [facility] 03-14-2014 ([id number]) Pacer Clinic 03-14-2014 - MD Pauline [facility] 09-15-2014 ([id number]) Prgrmng dev eval 03-14-2014 - Johan Perry MD [place] [facility] implantable in persn 1 ld 03-14-2014 ([id number] ) dfb Follow Up Appt 3 months 03-14-2014 - Johan Perry MD [facility] 09-15-2014 ([id number]) Follow Up Appt 6 months 03-14-2014 - MD Maxim [facility] 03-14-2014 ([id number]) Icd device prog eval, 1 03-14-2014 - Johan Perry MD [facility] sn 03-14-2014 ([id number]) [facility] 03-14-2014 - Johan Perry MD [place] [facility] 03-14-2014 ([id number]) Pacer Clinic 03-14-2014 - Johan Perry MD [facility] 09-15-2014 ([id number]) *Hepatic Function Panel 01-28-2014 - MD Maxim [facility] 02-06-2014 ([id number]) Lipid 1996 panel - Serum or 01-28-2014 - Johan Perry MD [facility] Plasma 02-06-2014 ([id number]) *Hepatic Function Panel 01-28-2014 - MD Maxim [facility] 02-06-2014 ([id number]) Lipid panel [AGGREGATE] 01-28-2014 - MD Maxim [facility] 02-06-2014 ([id number]) Follow Up Appt 2 months 12-16-2013 - MD [facility] 09-15-2014 ([id number]) Pacer Clinic 12-16-2013 - Johan Perry MD [place] [facility] 09-15-2014 ([id number]) Prgrmng dev eval 12-16-2013 - MD [facility] implantable in persn 1 ld 09-15-2014 ([id number] ) dfb Follow Up Appt 2 months 12-16-2013 - MD [facility] 09-15-2014 ([id number]) Icd device prog eval, 1 12-16-2013 - MD Maxim [facility] sngl 09-15-2014 ([id number]) Pacer Clinic 12-16-2013 - Johan Perry MD [facility] 09-15-2014 ([id number]) Follow Up Appt 3 months 09-15-2013 - MD [facility] 09-15-2014 ([id number]) Pacer Clinic 09-15-2013 - Johan Perry MD [facility] 09-15-2014 ([id number]) Prgrmg eval implantable in 09-15-2013 - MD Jose [facility] prsn dual lead dfb 09-15-2013 ([id number]) Follow Up Appt 3 months 09-15-2013 - MD [facility] 09-15-2014 ([id number]) Icd device progr eval, dual 09-15-2013 - Johan Perry MD [facility] 09-15-2013 ([id number]) Pacer Clinic 09-15-2013 - MD [facility] 09-15-2014 ([id number]) PRODUCTION TESTER 09-06-2013 - Melany Khanna [facility] 09-06-2013 PA-C ([id number]) Follow Up Appt 6 months 09-06-2013 - Melany Khanna [facility] 09-06-2013 PA-C ([id number]) PRODUCTION TESTER 09-06-2013 - Melany [facility]anna[facility] 09-06-2013 PA-C ([id number]) Follow Up Appt 6 months 09-06-2013 - Melany Khanna [facility] 09-06-2013 PA-C ([id number]) *Hepatic Function Panel 07-28-2013 - MD [facility] 08-09-2013 ([id number]) Lipid 1996 panel - Serum or 07-28-2013 - Johan Perry MD [facility] Plasma 08-09-2013 ([id number]) *Hepatic Function Panel 07-28-2013 - MD Maxim [facility] 08-09-2013 ([id number]) Lipid panel [AGGREGATE] 07-28-2013 - MD [facility] 08-09-2013 ([id number]) Follow Up Appt 3 months 06-08-2013 - MD [facility] 08-25-2013 ([id number]) Pacer Clinic 06-08-2013 - MD [facility] 08-25-2013 ([id number]) Prgrmng dev eval 06-08-2013 - MD [facility] implantable in persn 1 ld 06-08-2013 ([id number] ) dfb Follow Up Appt 3 months 06-08-2013 - MD [facility] 08-25-2013 ([id number]) Icd device prog eval, 1 06-08-2013 - MD [facility] sngl 06-08-2013 ([id number]) Pacer Clinic 06-08-2013 - MD Pauline [facility] 08-25-2013 ([id number]) Follow Up Appt 3 months 03-09-2013 - MD [facility] 05-17-2013 ([id number]) Pacer Clinic 03-09-2013 - MD [facility] 05-17-2013 ([id number]) Prgrmng dev eval 03-09-2013 - MD [facility] implantable in persn 1 ld 03-09-2013 ([id number] ) dfb Follow Up Appt 3 months 03-09-2013 - MD [facility] 05-17-2013 ([id number]) Pacer Clinic 03-09-2013 - MD [facility] 05-17-2013 ([id number]) Ecg routine ecg w/least 12 03-08-2013 - MD Jose [facility] lds w/i&r 05-17-2013 ([id number]) Follow Up Appt 6 months 03-08-2013 - MD [facility] 05-17-2013 ([id number]) Icd device prog eval, 1 03-08-2013 - MD Maxim [facility] sngl 05-17-2013 ([id number]) MMM 03-08-2013 - MD [facility] 05-17-2013 ([id number]) Electrocardiogram, complete 03-08-2013 - MD Pauline [facility] 05-17-2013 ([id number]) Follow Up Appt 6 months 03-08-2013 - MD [facility] 05-17-2013 ([id number]) MMM 03-08-2013 - MD [facility] 05-17-2013 ([id number]) *Hepatic Function Panel 01-28-2013 - MD [facility] 02-04-2013 ([id number]) Lipid 1996 panel - Serum or 01-28-2013 - MD [facility] Plasma 02-04-2013 ([id number]) *Hepatic Function Panel 01-28-2013 - MD Maxim [facility] 02-04-2013 ([id number]) Lipid panel [AGGREGATE] 01-28-2013 - MD [facility] 02-04-2013 ([id number]) Follow Up Appt 3 months 12-08-2012 - MD [facility] 05-17-2013 ([id number]) Pacer Clinic 12-08-2012 - MD [facility] 05-17-2013 ([id number]) Prgrmng dev eval 12-08-2012 - MD [facility]iel [facility] implantable in persn 1 ld 12-08-2012 ([id number] ) dfb Follow Up Appt 3 months 12-08-2012 - MD Maxim [facility] 05-17-2013 ([id number]) Icd device prog eval, 1 12-08-2012 - MD Maxim [facility] sngl 12-08-2012 ([id number]) Pacer Clinic 12-08-2012 - MD [facility] 05-17-2013 ([id number]) Follow Up Appt 6 months 11-25-2012 - MD Maxim [facility] 11-25-2012 ([id number]) [facility] 11-25-2012 - Johan Perry MD [facility] 11-25-2012 ([id number]) Follow Up Appt 6 months 11-25-2012 - MD [facility] 11-25-2012 ([id number]) [facility] 11-25-2012 - Johan Perry MD [place] [facility] 11-25-2012 ([id number]) Follow Up Appt 3 months 09-03-2012 - MD [facility] 05-17-2013 ([id number]) Pacer Clinic 09-03-2012 - MD [facility] 05-17-2013 ([id number]) Prgrmng dev eval 09-03-2012 - MD [facility] implantable in persn 1 ld 09-03-2012 ([id number] ) dfb Follow Up Appt 3 months 09-03-2012 - MD [facility] 05-17-2013 ([id number]) Icd device prog eval, 1 09-03-2012 - Johan Perry MD [facility] sngl 09-03-2012 ([id number]) Pacer Clinic 09-03-2012 - Johan Perry MD [facility] 05-17-2013 ([id number]) *BMP 09-01-2012 - Rahul W [place] [facility] 05-17-2013 Héctor SIMMONS ([id number]) *Hepatic Function Panel 09-01-2012 - Rahul W [place] [facility] 05-17-2013 Héctor SIMMONS ([id number]) Lipid 1996 panel - Serum or 09-01-2012 - Rahul [facility] Plasma 05-17-2013 Héctor SIMMONS ([id number]) Magnesium [Mass/volume] in 09-01-2012 - Rahul W [facility] Serum or Plasma 05-17-2013 Héctor SIMMONS ([id number]) *BMP 09-01-2012 - Rahul W [place] [facility] 05-17-2013 Héctor SIMMONS ([id number]) *Hepatic Function Panel 09-01-2012 - Rahul W [facility] 05-17-2013 Héctor SIMMONS ([id number]) Lipid panel [AGGREGATE] 09-01-2012 - Rahul W [place] [facility] 05-17-2013 Héctor SIMMONS ([id number]) Magnesium 09-01-2012 - Rahul W [facility] 05-17-2013 Héctor SIMMONS ([id number]) Follow Up Appt 6 months 03-04-2012 - Rahul W [place] [facility] 03-04-2012 Héctor SIMMONS ([id number]) Follow Up Appt 6 months 03-04-2012 - Rahul W [facility] 03-04-2012 Héctor SIMMONS ([id number]) *Hepatic Function Panel 02-04-2012 - Rahul W [facility] 02-11-2012 Héctor SIMMONS ([id number]) Lipid 1996 panel - Serum or 02-04-2012 - Rahul [facility] Plasma 02-11-2012 Héctor SIMMONS ([id number]) *Hepatic Function Panel 02-04-2012 - Rahul W [facility] 02-11-2012 Héctor SIMMONS ([id number]) Lipid panel [AGGREGATE] 02-04-2012 - Rahul W [place] 02-11-2012 Héctor SIMMONS ([id number]) Follow Up Appt 4 months 11-24-2011 - Rahul W [place] 11-24-2011 Héctor SIMMONS ([id number]) Follow Up Appt 4 months 11-24-2011 - Rahul W [facility] 11-24-2011 Héctor SIMMONS ([id number]) *Hepatic Function Panel 10-27-2011 - Rahul W [place] [place] [facility] 10-27-2011 Héctor SIMMONS ([id number]) Lipid 1996 panel - Serum or 10-27-2011 - Rahul [facility] Plasma 10-27-2011 Héctor SIMMONS ([id number]) *Hepatic Function Panel 10-27-2011 - Rahul W [facility] 10-27-2011 Héctor SIMMONS ([id number]) Lipid panel [AGGREGATE] 10-27-2011 - Rahul W [facility] 10-27-2011 Héctor SIMMONS ([id number]) *BMP 10-16-2011 - Rahul W [facility] 10-27-2011 Héctor SIMMONS ([id number]) *BMP 10-16-2011 - Rahul W [place] [facility] 10-27-2011 Héctor SIMMONS ([id number]) Ecg routine ecg w/least 08-26-2011 - Rahul W [facility] lds w/i&r 08-26-2011 Héctor SIMMONS ([id number]) Follow Up Appt 3 months 08-26-2011 - Rahul W [facility] 08-26-2011 Héctor SIMMONS ([id number]) Electrocardiogram, complete 08-26-2011 - Rahul W [facility] 08-26-2011 Héctor SIMMONS ([id number]) Follow Up Appt 3 months 08-26-2011 - Rahul W [place] 08-26-2011 Héctor SIMMONS ([id number]) Ecg routine ecg w/least 12 06-27-2011 - [facility]ul [facility] lds w/i&r 06-27-2011 Héctor SIMMONS ([id number]) Follow Up Appt 2 months 06-27-2011 - Rahul Allen [facility] 06-27-2011 Héctor SIMMONS ([id number]) Follow Up Appt 2 months 06-27-2011 - Rahul Allen [facility] 06-27-2011 Héctor SIMMONS ([id number]) Lipid panel [AGGREGATE] 06-27-2011 - Rahul Allen [facility] 06-27-2011 Héctor SIMMONS ([id number]) Follow Up Appt 4 months 06-10-2011 - Rahul Allen [facility] 06-10-2011 Héctor SIMMONS ([id number]) Follow Up Appt 4 months 06-10-2011 - Rahul Allen [facility] 06-10-2011 Héctor SIMMONS ([id number]) Implantation of automatic 07-16-2010 [facility] cardiac defibrillator ([id number]) Placement of stent in 07-16-2010 [facility] coronary artery ([id number]) Implantation of automatic 07-16-2010 [facility] ([id number]) Plan of Treatment Plan Description Date Location COLONOSCOPY COLONOSCOPY 01-07-2028 - [facility] 01-07-2028 ([id number]) COLORECTAL CANCER COLORECTAL CANCER 01-07-2028 - [facility] SCREENING,SEE MODIFIER SCREENING,SEE MODIFIER 01-07-2028 ([id number]) DTAP,TDAP,TD (3 - Td) DTAP,TDAP,TD (3 - Td) 10-17-2027 - [facility] 10-17-2027 ([id number]) ADVANCE DIRECTIVE ADVANCE DIRECTIVE 10-26-2024 - [facility] DISCUSSION DISCUSSION 10-26-2024 ([id number]) HEMOGLOBIN/HEMATOCRIT HEMOGLOBIN/HEMATOCRIT 12-08-2020 - [facility] 12-08-2020 ([id number]) DIABETIC FOOT EXAM DIABETIC FOOT EXAM 11-26-2020 - [facility] 11-26-2020 ([id number]) Comment: Postponed from 07/16/2019 (C urrent Illness) ANNUAL PCP TEAM ANNUAL PCP TEAM 10-26-2020 - [facility] CHRONIC DISEASE VISIT CHRONIC DISEASE VISIT 10-26-2020 ([phone]) BP CONTROLLED BP CONTROLLED 10-26-2020 - [facility] (<130/80) (<130/80) 10-26-2020 ([id number]) SHINGRIX VACCINE (1 of SHINGRIX VACCINE (1 of 10-26-2020 - [facility] 2) 2) 10-26-2020 ([id number]) Comment: Postponed from 10/20/1995 (D eclined at this time) URINE ALBUMIN:CREATININE URINE ALBUMIN:CREATININE 10-13-2020 - [facility] RATIO RATIO 10-13-2020 ([id number]) LDL CHOLESTEROL LDL CHOLESTEROL 10-13-2020 - [facility] 10-13-2020 ([id number]) SERUM CREATININE SERUM CREATININE 10-13-2020 - [facility] 10-13-2020 ([id number]) DILATED RETINAL EXAM DILATED RETINAL EXAM 08-10-2020 - [facility] 08-10-2020 ([id number]) HBA1C HBA1C 04-15-2020 - [facility] 04-15-2020 ([id number]) HEMOGLOBIN/HEMATOCRIT HEMOGLOBIN/HEMATOCRIT 01-15-2020 - [facility] 01-15-2020 ([id number]) INFLUENZA (#1) INFLUENZA (#1) 2019 - [facility] 11-29-2019 ([id number]) Appointment Appointment 07-07-2017 - [facility] 07-07-2017 Group ([id number]) Appointment Appointment 05-04-2017 - [facility] 05-04-2017 Group ([id number]) Follow Up Appt 3 months Follow Up Appt 3 months 01-30-2017 - [facility] 02-02-2017 Group ([id number]) Pacer Clinic Pacer Clinic 01-30-2017 - [facility] 02-02-2017 Group ([id number]) Appointment Appointment 01-30-2017 - [facility] 01-30-2017 Group ([id number]) Appointment Appointment 01-01-2017 - [facility] 01-01-2017 Group ([id number]) PRODUCTION TESTER PRODUCTION TESTER 01-01-2017 - [facility] 01-01-2017 Group ([id number]) Follow Up Appt 6 months Follow Up Appt 6 months 01-01-2017 - [facility] 01-01-2017 Group ([id number]) Appointment Appointment 12-24-2016 - [facility] 12-24-2016 Group ([id number]) *Hepatic Function Panel *Hepatic Function Panel 11-18-2016 - [facility] 05-22-2016 Group ([id number]) *Lipid Profile CC PCP *Lipid Profile CC PCP 11-18-2016 - [facility] 05-22-2016 Group ([id number]) Follow Up Appt 3 months Follow Up Appt 3 months 10-30-2016 - [facility] 12-17-2016 Group ([id number]) Pacer Clinic Pacer Clinic 10-30-2016 - [facility] 12-17-2016 Group ([id number]) Appointment Appointment 10-30-2016 - [facility] 10-30-2016 Group ([id number]) Appointment Appointment 10-30-2016 - [facility] 10-30-2016 Group ([id number]) Follow Up Appt 3 months Follow Up Appt 3 months 10-30-2016 - [facility] 10-30-2016 Group ([id number]) Pacer Clinic Pacer Clinic 10-30-2016 - [facility] 10-30-2016 Group ([id number]) Appointment Appointment 09-18-2016 - [facility] 09-18-2016 Group ([id number]) Appointment Appointment 09-04-2016 - [facility] 09-04-2016 Group ([id number]) Appointment Appointment 09-04-2016 - [facility] 09-04-2016 Group ([id number]) Follow Up Appt 3 months Follow Up Appt 3 months 09-04-2016 - [facility] 12-17-2016 Group ([id number]) MMM MMM 09-04-2016 - [facility] 12-17-2016 Group ([id number]) Follow Up Appt 3 months Follow Up Appt 3 months 09-04-2016 - [facility] 09-04-2016 Group ([id number]) MMM MMM 09-04-2016 - [facility] 09-04-2016 Group ([id number]) Follow Up Appt 3 months Follow Up Appt 3 months 07-30-2016 - [facility] 11-17-2016 Group ([id number]) Pacer Clinic Pacer Clinic 07-30-2016 - [facility] 11-17-2016 Group ([id number]) Appointment Appointment 07-30-2016 - [facility] 07-30-2016 Group ([id number]) Follow Up Appt 3 months Follow Up Appt 3 months 07-30-2016 - [facility] 11-17-2016 Group ([id number]) Pacer Clinic Pacer Clinic 07-30-2016 - [facility] 11-17-2016 Group ([id number]) *BMP *BMP 06-19-2016 - [facility] 06-19-2016 Group ([id number]) Cardiac Rehab Cardiac Rehab 06-19-2016 - [facility] 11-17-2016 Group ([id number]) PRODUCTION TESTER PRODUCTION TESTER 06-19-2016 - [facility] 06-19-2016 Group ([id number]) Follow Up Appt 3 months Follow Up Appt 3 months 06-19-2016 - [facility] 11-17-2016 Group ([id number]) *Magnesium *Magnesium 06-19-2016 - [facility] 06-19-2016 Group ([id number]) Pacer Clinic Pacer Clinic 06-19-2016 - [facility] 11-17-2016 Group ([id number]) *BMP *BMP 06-19-2016 - [facility] 06-19-2016 Group ([id number]) Cardiac Rehab Cardiac Rehab 06-19-2016 - [facility] 11-17-2016 Group ([id number]) PRODUCTION TESTER PRODUCTION TESTER 06-19-2016 - [facility] 06-19-2016 Group ([id number]) Follow Up Appt 3 months Follow Up Appt 3 months 06-19-2016 - [facility] 11-17-2016 Group ([id number]) *Magnesium *Magnesium 06-19-2016 - [facility] 06-19-2016 Group ([id number]) Pacer Clinic Pacer Clinic 06-19-2016 - [facility] 11-17-2016 Group ([id number]) *Hepatic Function Panel *Hepatic Function Panel 05-21-2016 - [facility] 05-21-2016 Group ([id number]) *Lipid Profile CC PCP *Lipid Profile CC PCP 05-21-2016 - [facility] 05-21-2016 Group ([id number]) *Hepatic Function Panel *Hepatic Function Panel 05-21-2016 - [facility] 05-21-2016 Group ([id number]) *Lipid Profile CC PCP *Lipid Profile CC PCP 05-21-2016 - [facility] 05-21-2016 Group ([id number]) Follow Up Appt 3 months Follow Up Appt 3 months 04-30-2016 - [facility] 11-17-2016 Group ([id number]) Pacer Clinic Pacer Clinic 04-30-2016 - [facility] 11-17-2016 Group ([id number]) Follow Up Appt 3 months Follow Up Appt 3 months 04-30-2016 - [facility] 11-17-2016 Group ([id number]) Pacer Clinic Pacer Clinic 04-30-2016 - [facility] 11-17-2016 Group ([id number]) Carotid duplex Carotid duplex 03-14-2016 - [facility] 03-14-2016 Group ([id number]) Follow Up Appt 3 months Follow Up Appt 3 months 03-14-2016 - [facility] 03-14-2016 Group ([id number]) *PT/INR *PT/INR 03-14-2016 - [facility] 03-14-2016 Group ([id number]) MMM MMM 03-14-2016 - [facility] 03-14-2016 Group ([id number]) Carotid duplex Carotid duplex 03-14-2016 - [facility] 03-14-2016 Group ([id number]) *PT/INR *PT/INR 03-14-2016 - [facility] 03-14-2016 Group ([id number]) Follow Up Appt 3 months Follow Up Appt 3 months 03-14-2016 - [facility] 03-14-2016 Group ([id number]) MMM MMM 03-14-2016 - [facility] 03-14-2016 Group ([id number]) *BMP *BMP 01-30-2016 - [facility] 01-30-2016 Group ([id number]) *CBC without Diff *CBC without Diff 01-30-2016 - [facility] 01-30-2016 Group ([id number]) X-Ray, Chest, PA & Lateral X-Ray, Chest, PA & Lateral 01-30-2016 - [facility] 02-08-2016 Group ([id number]) EKG (In office) EKG (In office) 01-30-2016 - [facility] 01-30-2016 Group ([id number]) Follow Up Appt 6 weeks Follow Up Appt 6 weeks 01-30-2016 - [facility] 01-30-2016 Group ([id number]) *PT/INR *PT/INR 01-30-2016 - [facility] 01-30-2016 Group ([id number]) Left Heart Cath Left Heart Cath 01-30-2016 - [facility] 01-30-2016 Group ([id number]) MMM MMM 01-30-2016 - [facility] 01-30-2016 Group ([id number]) US Abdominal (aneurysm US Abdominal (aneurysm 01-30-2016 - [facility] screening) screening) 01-30-2016 Group ([id number]) *BMP *BMP 01-30-2016 - [facility] 01-30-2016 Group ([id number]) *CBC without Diff *CBC without Diff 01-30-2016 - [facility] 01-30-2016 Group ([id number]) X-Ray, Chest, PA & Lateral X-Ray, Chest, PA & Lateral 01-30-2016 - [facility] 02-08-2016 Group ([id number]) *PT/INR *PT/INR 01-30-2016 - [facility] 01-30-2016 Group ([id number]) US Abdominal (aneurysm US Abdominal (aneurysm 01-30-2016 - [facility] screening) screening) 01-30-2016 Group ([id number]) EKG (In office) EKG (In office) 01-30-2016 - [facility] 01-30-2016 Group ([id number]) Follow Up Appt 6 weeks Follow Up Appt 6 weeks 01-30-2016 - [facility] 01-30-2016 Group ([id number]) Left Heart Cath Left Heart Cath 01-30-2016 - [facility] 01-30-2016 Group ([id number]) MMM MMM 01-30-2016 - [facility] 01-30-2016 Group ([id number]) Follow Up Appt 3 months Follow Up Appt 3 months 01-23-2016 - [facility] 11-17-2016 Group ([id number]) Pacer Clinic Pacer Clinic 01-23-2016 - [facility] 11-17-2016 Group ([id number]) Follow Up Appt 3 months Follow Up Appt 3 months 01-23-2016 - [facility] 11-17-2016 Group ([id number]) Pacer Clinic Pacer Clinic 01-23-2016 - [facility] 11-17-2016 Group ([id number]) *Hepatic Function Panel *Hepatic Function Panel 11-05-2015 - [facility] 11-20-2015 Group ([id number]) *Lipid Profile CC PCP *Lipid Profile CC PCP 11-05-2015 - [facility] 11-20-2015 Group ([id number]) *Hepatic Function Panel *Hepatic Function Panel 11-05-2015 - [facility] 11-20-2015 Group ([id number]) *Lipid Profile CC PCP *Lipid Profile CC PCP 11-05-2015 - [facility] 11-20-2015 Group ([id number]) Follow Up Appt 3 months Follow Up Appt 3 months 10-18-2015 - [facility] 02-08-2016 Group ([id number]) Pacer Clinic Pacer Clinic 10-18-2015 - [facility] 02-08-2016 Group ([id number]) Follow Up Appt 3 months Follow Up Appt 3 months 10-18-2015 - [facility] 02-08-2016 Group ([id number]) Pacer Clinic Pacer Clinic 10-18-2015 - [facility] 02-08-2016 Group ([id number]) Follow Up Appt 3 months Follow Up Appt 3 months 07-18-2015 - [facility] 02-08-2016 Group ([id number]) Pacer Clinic Pacer Clinic 07-18-2015 - [facility] 02-08-2016 Group ([id number]) Follow Up Appt 3 months Follow Up Appt 3 months 07-18-2015 - [facility] 02-08-2016 Group ([id number]) Pacer Clinic Pacer Clinic 07-18-2015 - [facility] 02-08-2016 Group ([id number]) [facility] PRODUCTION TESTER 07-03-2015 - [facility] 07-03-2015 Group ([id number]) Follow Up Appt 6 months Follow Up Appt 6 months 07-03-2015 - [facility] 07-03-2015 Group ([id number]) PRODUCTION TESTER PRODUCTION TESTER 07-03-2015 - [facility] 07-03-2015 Group ([id number]) Follow Up Appt 6 months Follow Up Appt 6 months 07-03-2015 - [facility] 07-03-2015 Group ([id number]) *Hepatic Function Panel *Hepatic Function Panel 06-20-2015 - [facility] 06-20-2015 Group ([id number]) *Lipid Profile CC PCP *Lipid Profile CC PCP 06-20-2015 - [facility] 06-20-2015 Group ([id number]) *Hepatic Function Panel *Hepatic Function Panel 06-20-2015 - [facility] 06-20-2015 Group ([id number]) *Lipid Profile CC PCP *Lipid Profile CC PCP 06-20-2015 - [facility] 06-20-2015 Group ([id number]) Follow Up Appt 3 months Follow Up Appt 3 months 04-13-2015 - [facility] 02-08-2016 Group ([id number]) Pacer Clinic Pacer Clinic 04-13-2015 - [facility] 02-08-2016 Group ([id number]) Follow Up Appt 3 months Follow Up Appt 3 months 04-13-2015 - [facility] 02-08-2016 Group ([id number]) Pacer Clinic Pacer Clinic 04-13-2015 - [facility] 02-08-2016 Group ([id number]) US Abdominal (aneurysm US Abdominal (aneurysm 04-11-2015 - [facility] screening) screening) 04-05-2015 Group ([id number]) US Abdominal (aneurysm US Abdominal (aneurysm 04-11-2015 - [facility] screening) screening) 04-05-2015 Group ([id number]) External Counterpulsation External Counterpulsation 04-06-2015 - [facility] [address] [facility], Therapy [address] [facility], 04-06-2015 Group ([id number]) [address], [place], [place], [address], [place], [id number] External Counterpulsation External Counterpulsation 04-06-2015 - [facility] [address] [facility], Therapy [address] [facility], 02-08-2016 Group ([id number]) [address] [place], [place], [address], [place], [id number] PRODUCTION TESTER PRODUCTION TESTER 03-29-2015 - [facility] 03-29-2015 Group ([phone]) Follow Up Appt 3 months Follow Up Appt 3 months 03-29-2015 - [facility] 03-29-2015 Group ([id number]) PRODUCTION TESTER PRODUCTION TESTER 03-29-2015 - [facility] 03-29-2015 Group ([id number]) Follow Up Appt 3 months Follow Up Appt 3 months 03-29-2015 - [facility] 03-29-2015 Group ([id number]) Follow Up Appt 3 months Follow Up Appt 3 months 01-05-2015 - [facility] 03-05-2015 Group ([id number]) Pacer Clinic Pacer Clinic 01-05-2015 - [facility] 03-05-2015 Group ([id number]) Follow Up Appt 3 months Follow Up Appt 3 months 01-05-2015 - [facility] 03-05-2015 Group ([id number]) Pacer Clinic Pacer Clinic 01-05-2015 - [facility] 03-05-2015 Group ([id number]) Cardiac Rehab Cardiac Rehab 12-27-2014 - [facility] 03-05-2015 Group ([id number]) Follow Up Appt 3 months Follow Up Appt 3 months 12-27-2014 - [facility] 12-27-2014 Group ([id number]) MMM MMM 12-27-2014 - [facility] 12-27-2014 Group ([id number]) Cardiac Rehab Cardiac Rehab 12-27-2014 - [facility] 03-05-2015 Group ([id number]) Follow Up Appt 3 months Follow Up Appt 3 months 12-27-2014 - [facility] 12-27-2014 Group ([id number]) MMM MMM 12-27-2014 - [facility] 12-27-2014 Group ([id number]) Follow Up BP Check Follow Up BP Check 12-11-2014 - [facility] 12-11-2014 Group ([id number]) Left Heart Cath Left Heart Cath 12-11-2014 - [facility] 12-11-2014 Group ([id number]) Follow Up BP Check Follow Up BP Check 12-11-2014 - [facility] 12-11-2014 Group ([id number]) Left Heart Cath Left Heart Cath 12-11-2014 - [facility] 12-11-2014 Group ([id number]) *BMP *BMP 12-06-2014 - [facility] 12-06-2014 Group ([id number]) Follow Up Appt Other Follow Up Appt Other 12-06-2014 - [facility] 12-06-2014 Group ([id number]) *BMP *BMP 12-06-2014 - [facility] 12-06-2014 Group ([id number]) Follow Up Appt Other Follow Up Appt Other 12-06-2014 - [facility] 12-06-2014 Group ([id number]) *Lipid Profile CC PCP *Lipid Profile CC PCP 11-28-2014 - [facility] 12-21-2014 Group ([id number]) *Lipid Profile CC PCP *Lipid Profile CC PCP 11-28-2014 - [facility] 12-21-2014 Group ([id number]) Follow Up Appt 6 months Follow Up Appt 6 months 11-03-2014 - [facility] 11-03-2014 Group ([id number]) MMM MMM 11-03-2014 - [facility] 11-03-2014 Group ([id number]) Follow Up Appt 6 months Follow Up Appt 6 months 11-03-2014 - [facility] 11-03-2014 Group ([id number]) MMM MMM 11-03-2014 - [facility] 11-03-2014 Group ([id number]) PRODUCTION TESTER PRODUCTION TESTER 09-27-2014 - [facility] 09-27-2014 Group ([id number]) EKG (In office) EKG (In office) 09-27-2014 - [facility] 09-27-2014 Group ([id number]) Follow Up Appt 3 months Follow Up Appt 3 months 09-27-2014 - [facility] 11-03-2014 Group ([id number]) Follow Up Appt 6 months Follow Up Appt 6 months 09-27-2014 - [facility] 09-27-2014 Group ([id number]) Pacer Clinic Pacer Clinic 09-27-2014 - [facility] 11-03-2014 Group ([id number]) PRODUCTION TESTER [facility] 09-27-2014 - [facility] 09-27-2014 Group ([id number]) EKG (In office) EKG (In office) 09-27-2014 - [facility] 09-27-2014 Group ([id number]) Follow Up Appt 3 months Follow Up Appt 3 months 09-27-2014 - [facility] 11-03-2014 Group ([id number]) Follow Up Appt 6 months Follow Up Appt 6 months 09-27-2014 - [facility] 09-27-2014 Group ([id number]) Pacer Clinic Pacer Clinic 09-27-2014 - [facility] 11-03-2014 Group ([id number]) *Hepatic Function Panel *Hepatic Function Panel 07-28-2014 - [facility] 08-25-2014 Group ([id number]) *Lipid Profile CC PCP *Lipid Profile CC PCP 07-28-2014 - [facility] 08-25-2014 Group ([id number]) *Hepatic Function Panel *Hepatic Function Panel 07-28-2014 - [facility] 08-25-2014 Group ([id number]) *Lipid Profile CC PCP *Lipid Profile CC PCP 07-28-2014 - [facility] 08-25-2014 Group ([id number]) Follow Up Appt 3 months Follow Up Appt 3 months 06-12-2014 - [facility] 09-15-2014 Group ([id number]) Pacer Clinic Pacer Clinic 06-12-2014 - [facility] 09-15-2014 Group ([id number]) Follow Up Appt 3 months Follow Up Appt 3 months 06-12-2014 - [facility] 09-15-2014 Group ([id number]) Pacer Clinic Pacer Clinic 06-12-2014 - [facility] 09-15-2014 Group ([id number]) Follow Up Appt 3 months Follow Up Appt 3 months 03-14-2014 - [facility] 09-15-2014 Group ([id number]) Follow Up Appt 6 months Follow Up Appt 6 months 03-14-2014 - [facility] 03-14-2014 Group ([id number]) MMM MMM 03-14-2014 - [facility] 03-14-2014 Group ([id number]) Pacer Clinic Pacer Clinic 03-14-2014 - [facility] 09-15-2014 Group ([id number]) Follow Up Appt 3 months Follow Up Appt 3 months 03-14-2014 - [facility] 09-15-2014 Group ([id number]) Follow Up Appt 6 months Follow Up Appt 6 months 03-14-2014 - [facility] 03-14-2014 Group ([id number]) MMM MMM 03-14-2014 - [facility] 03-14-2014 Group ([id number]) Pacer Clinic Pacer Clinic 03-14-2014 - [facility] 09-15-2014 Group ([id number]) *Hepatic Function Panel *Hepatic Function Panel 01-28-2014 - [facility] 02-06-2014 Group ([id number]) *Lipid Profile CC PCP *Lipid Profile CC PCP 01-28-2014 - [facility] 02-06-2014 Group ([id number]) *Hepatic Function Panel *Hepatic Function Panel 01-28-2014 - [facility] 02-06-2014 Group ([id number]) *Lipid Profile CC PCP *Lipid Profile CC PCP 01-28-2014 - [facility] 02-06-2014 Group ([id number]) Follow Up Appt 2 months Follow Up Appt 2 months 12-16-2013 - [facility] 09-15-2014 Group ([id number]) Pacer Clinic Pacer Clinic 12-16-2013 - [facility] 09-15-2014 Group ([id number]) Follow Up Appt 2 months Follow Up Appt 2 months 12-16-2013 - [facility] 09-15-2014 Group ([id number]) Pacer Clinic Pacer Clinic 12-16-2013 - [facility] 09-15-2014 Group ([id number]) Follow Up Appt 3 months Follow Up Appt 3 months 09-15-2013 - [facility] 09-15-2014 Group ([id number]) Pacer Clinic Pacer Clinic 09-15-2013 - [facility] 09-15-2014 Group ([id number]) Follow Up Appt 3 months Follow Up Appt 3 months 09-15-2013 - [facility] 09-15-2014 Group ([id number]) Pacer Clinic Pacer Clinic 09-15-2013 - [facility] 09-15-2014 Group ([id number]) PRODUCTION TESTER PRODUCTION TESTER 09-06-2013 - [facility] 09-06-2013 Group ([id number]) Follow Up Appt 6 months Follow Up Appt 6 months 09-06-2013 - [facility] 09-06-2013 Group ([id number]) PRODUCTION TESTER PRODUCTION TESTER 09-06-2013 - [facility] 09-06-2013 Group ([id number]) Follow Up Appt 6 months Follow Up Appt 6 months 09-06-2013 - [facility] 09-06-2013 Group ([id number]) *Hepatic Function Panel *Hepatic Function Panel 07-28-2013 - [facility] 08-08-2013 Group ([id number]) *Lipid Profile CC PCP *Lipid Profile CC PCP 07-28-2013 - [facility] 08-08-2013 Group ([id number]) *Hepatic Function Panel *Hepatic Function Panel 07-28-2013 - [facility] 08-08-2013 Group ([id number]) *Lipid Profile CC PCP *Lipid Profile CC PCP 07-28-2013 - [facility] 08-08-2013 Group ([id number]) Follow Up Appt 3 months Follow Up Appt 3 months 06-08-2013 - [facility] 08-25-2013 Group ([id number]) Pacer Clinic Pacer Clinic 06-08-2013 - [facility] 08-25-2013 Group ([id number]) Follow Up Appt 3 months Follow Up Appt 3 months 06-08-2013 - [facility] 08-25-2013 Group ([id number]) Pacer Clinic Pacer Clinic 06-08-2013 - [facility] 08-25-2013 Group ([id number]) Follow Up Appt 3 months Follow Up Appt 3 months 03-09-2013 - [facility] 05-17-2013 Group ([id number]) Pacer Clinic Pacer Clinic 03-09-2013 - [facility] 05-17-2013 Group ([id number]) Follow Up Appt 3 months Follow Up Appt 3 months 03-09-2013 - [facility] 05-17-2013 Group ([id number]) Pacer Clinic Pacer Clinic 03-09-2013 - [facility] 05-17-2013 Group ([id number]) EKG (In office) EKG (In office) 03-08-2013 - [facility] 05-17-2013 Group ([id number]) Follow Up Appt 6 months Follow Up Appt 6 months 03-08-2013 - [facility] 05-17-2013 Group ([id number]) MMM MMM 03-08-2013 - [facility] 05-17-2013 Group ([id number]) EKG (In office) EKG (In office) 03-08-2013 - [facility] 05-17-2013 Group ([id number]) Follow Up Appt 6 months Follow Up Appt 6 months 03-08-2013 - [facility] 05-17-2013 Group ([id number]) MMM MMM 03-08-2013 - [facility] 05-17-2013 Group ([id number]) *Hepatic Function Panel *Hepatic Function Panel 01-28-2013 - [facility] 02-04-2013 Group ([id number]) *Lipid Profile *Lipid Profile 01-28-2013 - [facility] 02-04-2013 Group ([id number]) *Hepatic Function Panel *Hepatic Function Panel 01-28-2013 - [facility] 02-04-2013 Group ([id number]) *Lipid Profile *Lipid Profile 01-28-2013 - [facility] 02-04-2013 Group ([id number]) Follow Up Appt 3 months Follow Up Appt 3 months 12-08-2012 - [facility] 05-17-2013 Group ([id number]) Pacer [facility] Pacer Clinic 12-08-2012 - [facility] 05-17-2013 Group ([id number]) Follow Up Appt 3 months Follow Up Appt 3 months 12-08-2012 - [facility] 05-17-2013 Group ([id number]) Pacer [facility] Pacer Clinic 12-08-2012 - [facility] 05-17-2013 Group ([id number]) Follow Up Appt 6 months Follow Up Appt 6 months 11-25-2012 - [facility] 11-25-2012 Group ([id number]) MMM MMM 11-25-2012 - [facility] 11-25-2012 Group ([id number]) Follow Up Appt 6 months Follow Up Appt 6 months 11-25-2012 - [facility] 11-25-2012 Group ([id number]) MMM MMM 11-25-2012 - [facility] 11-25-2012 Group ([id number]) Follow Up Appt 3 months Follow Up Appt 3 months 09-03-2012 - [facility] 05-17-2013 Group ([id number]) Pacer [facility] Pacer Clinic 09-03-2012 - [facility] 05-17-2013 Group ([id number]) Follow Up Appt 3 months Follow Up Appt 3 months 09-03-2012 - [facility] 05-17-2013 Group ([id number]) Pacer [facility] Pacer Clinic 09-03-2012 - [facility] 05-17-2013 Group ([id number]) *BMP *BMP 09-01-2012 - [facility] 03-04-2012 Group ([id number]) *Hepatic Function Panel *Hepatic Function Panel 09-01-2012 - [facility] 05-17-2013 Group ([id number]) *Lipid Profile *Lipid Profile 09-01-2012 - [facility] 05-17-2013 Group ([id number]) *Magnesium *Magnesium 09-01-2012 - [facility] 05-17-2013 Group ([id number]) *BMP *BMP 09-01-2012 - [facility] 03-04-2012 Group ([id number]) *Hepatic Function Panel *Hepatic Function Panel 09-01-2012 - [facility] 05-17-2013 Group ([id number]) *Lipid Profile *Lipid Profile 09-01-2012 - [facility] 05-17-2013 Group ([id number]) *Magnesium *Magnesium 09-01-2012 - [facility] 05-17-2013 Group ([id number]) Follow Up Appt 6 months Follow Up Appt 6 months 03-04-2012 - [facility] 03-04-2012 Group ([id number]) Follow Up Appt 6 months Follow Up Appt 6 months 03-04-2012 - [facility] 03-04-2012 Group ([id number]) *Hepatic Function Panel *Hepatic Function Panel 02-04-2012 - [facility] 02-11-2012 Group ([id number]) *Lipid Profile *Lipid Profile 02-04-2012 - [facility] 02-11-2012 Group ([id number]) *Hepatic Function Panel *Hepatic Function Panel 02-04-2012 - [facility] 02-11-2012 Group ([id number]) *Lipid Profile *Lipid Profile 02-04-2012 - [facility] 02-11-2012 Group ([id number]) Follow Up Appt 4 months Follow Up Appt 4 months 11-24-2011 - [facility] 11-24-2011 Group ([id number]) Follow Up Appt 4 months Follow Up Appt 4 months 11-24-2011 - [facility] 11-24-2011 Group ([id number]) *Hepatic Function Panel *Hepatic Function Panel 10-29-2011 - [facility] 10-27-2011 Group ([id number]) *Lipid Profile *Lipid Profile 10-29-2011 - [facility] 10-27-2011 Group ([id number]) *Hepatic Function Panel *Hepatic Function Panel 10-29-2011 - [facility] 10-27-2011 Group ([id number]) *Lipid Profile *Lipid Profile 10-29-2011 - [facility] 10-27-2011 Group ([id number]) *BMP *BMP 10-16-2011 - [facility] 10-27-2011 Group ([id number]) *BMP *BMP 10-16-2011 - [facility] 10-27-2011 Group ([id number]) EKG (In office) EKG (In office) 08-26-2011 - [facility] 08-26-2011 Group ([id number]) Follow Up Appt 3 months Follow Up Appt 3 months 08-26-2011 - [facility] 08-26-2011 Group ([id number]) EKG (In office) EKG (In office) 08-26-2011 - [facility] 08-26-2011 Group ([id number]) Follow Up Appt 3 months Follow Up Appt 3 months 08-26-2011 - [facility] 08-26-2011 Group ([id number]) EKG (In office) EKG (In office) 06-27-2011 - [facility] 06-27-2011 Group ([id number]) Follow Up Appt 2 months Follow Up Appt 2 months 06-27-2011 - [facility] 06-27-2011 Group ([id number]) EKG (In office) EKG (In office) 06-27-2011 - [facility] 06-27-2011 Group ([id number]) Follow Up Appt 2 months Follow Up Appt 2 months 06-27-2011 - [facility] 06-27-2011 Group ([id number]) Follow Up Appt 4 months Follow Up Appt 4 months 06-10-2011 - [facility] 06-10-2011 Group ([id number]) Follow Up Appt 4 months Follow Up Appt 4 months 06-10-2011 - [facility] 06-10-2011 Group ([id number]) Patient education no information [facility] ([id number]) no information [facility] ([id number]) Immunizations Vaccine Notes Status Date Location Influenza Vaccine, influenza virus (completed) 01-06-2013 - [facility] Split-Non Spec vaccine, unspecified 01-06-2013 (4419 [id number]) formulation Influenza Seasonal - influenza, high dose (completed) 01-14-2019 - [facility] High Dose - Age 65+ seasonal, 01-14-2019 ([id number]) preservative-free Influenza Seasonal - influenza, high dose (completed) 01-26-2018 - [facility] High Dose - Age 65+ seasonal, 01-26-2018 ([id number]) preservative-free Influenza Seasonal - influenza, high dose (completed) 01-19-2017 - [facility] High Dose - Age 65+ seasonal, 01-19-2017 ([id number]) preservative-free Influenza Seasonal - influenza, high dose (completed) 01-18-2016 - [facility] High Dose - Age 65+ seasonal, 01-18-2016 ([id number]) preservative-free Influenza Seasonal - influenza, high dose (completed) 01-24-2015 - [facility] High Dose - Age 65+ seasonal, 01-24-2015 ([id number]) preservative-free Novel Influenza H1N1, novel (completed) 01-31-2009 - [facility] preservative free [id number], 01-31-2009 ([id number]) preservative-free, injectable Pneumococcal-13 Vac pneumococcal (completed) 06-07-2014 - [facility] Conjugate conjugate vaccine, 13 06-07-2014 ([id number] ) valent Tdap (Age 7+) tetanus toxoid, (completed) 09-16-2007 - [facility] linic reduced diphtheria 09-16-2007 ([id number]) toxoid, and acellular pertussis vaccine, adsorbed Payers Payer Name Policy Number Location MEDICARE [id number] [facility] (44 195) MEDICARE PART B [id number] [facility] ([place]) ([id number]) [facility] [id number] [facility] (44 195) The following information is from the original human readable contentNo Payer Records Found Social History Type Social History Date Location Description History of tobacco use Current smoker 08-12-2007 [facility] ([id number]) History SDOH Social 2 12-17-2018 - [facility] 09-09-2019 ([id number]) History of tobacco use Cigar Smoker 08-12-2007 [facility] ([id number]) Tobacco use and exposure Never used 10-27-2019 - [facility] 10-27-2019 ([id number]) Alcohol intake Current non-drinker of 10-27-2019 [facility] alcohol (finding) 10-27-2019 ([id number]) History SDOH Alcohol 1 09-09-2019 - [facility] linic Frequency 09-09-2019 ([id number]) History SDOH Social 98 09-09-2019 - [facility] Phone 09-09-2019 ([id number]) Tobacco smoking status Former smoker 10-27-2019 - [facility] NHIS 10-27-2019 ([id number]) History SDOH Social 3 12-17-2018 - [facility] 12-17-2018 ([id number]) History SDOH Physical 0 09-09-2019 - [facility] Activity DPW 09-09-2019 ([id number]) History SDOH Stress 5 09-09-2019 - [facility] 09-09-2019 ([id number]) History SDOH Education 12 09-09-2019 - [facility] 09-09-2019 ([id number]) Sex Assigned At Not on file [facility] ([id number]) Exposure to SARS-CoV-2 Not sure [facility] (event) ([id number]) The following information is from the original human readable contentNo Social History Records FoundNo Social History Records FoundNo Social History Records Found Medical Equipment Equipment Code (if Equipment Original Equipment Procedure Code ( if Dates provided) Text (if provided) Identifier (if provided) provided) 1 Each five times 07-19-2019 daily. 1 Each five times 07-19-2019 daily. Use with Onetouch 09-16-2013 Glucometer as directed Use as instructed 05-07-2016 to check blood sugar 3 to 4 times daily DM: yes Insulin: yes DX:11.9 1 Each five times 07-19-2019 daily. Use with Onetouch 09-16-2013 Glucometer as directed Use as instructed 05-07-2016 to check blood sugar 3 to 4 times daily DM: yes Insulin: yes DX:11.9 1 Each five times 07-19-2019 daily. Use with Onetouch 09-16-2013 Glucometer as directed Use as instructed 05-07-2016 to check blood sugar 3 to 4 times daily DM: yes Insulin: yes DX:11.9 1 Each five times 07-19-2019 daily. Use with Onetouch 09-16-2013 Glucometer as directed Use as instructed 05-07-2016 to check blood sugar 3 to 4 times daily DM: yes Insulin: yes DX:11.9 1 Each five times 07-19-2019 daily. Use with Onetouch 09-16-2013 Glucometer as directed Use as instructed 05-07-2016 to check blood sugar 3 to 4 times daily DM: yes Insulin: yes DX:11.9 1 Each five times 07-19-2019 daily. Use with Onetouch 09-16-2013 Glucometer as directed Use as instructed 05-07-2016 to check blood sugar 3 to 4 times daily DM: yes Insulin: yes DX:11.9 1 Each five times 07-19-2019 daily. Use with Onetouch 09-16-2013 Glucometer as directed Use as instructed 05-07-2016 to check blood sugar 3 to 4 times daily DM: yes Insulin: yes DX:11.9 1 Each five times 07-19-2019 daily. Use with Onetouch 09-16-2013 Glucometer as directed Use as instructed 05-07-2016 to check blood sugar 3 to 4 times daily DM: yes Insulin: yes DX:11.9 Use as instructed 05-07-2016 to check blood sugar 3 to 4 times daily DM: yes Insulin: yes DX:11.9 Use with Onetouch 09-16-2013 Glucometer as directed Use as instructed 05-07-2016 to check blood sugar 3 to 4 times daily DM: yes Insulin: yes DX:11.9 1 Each five times 07-19-2019 daily. Use with Onetouch 09-16-2013 Glucometer as directed Use as instructed 05-07-2016 to check blood sugar 3 to 4 times daily DM: yes Insulin: yes DX:11.9 1 Each five times 07-19-2019 daily. Use with Onetouch 09-16-2013 Glucometer as directed Use as instructed 05-07-2016 to check blood sugar 3 to 4 times daily DM: yes Insulin: yes DX:11.9 1 Each five times 07-19-2019 daily. Use with Onetouch 09-16-2013 Glucometer as directed Use as instructed 05-07-2016 to check blood sugar 3 to 4 times daily DM: yes Insulin: yes DX:11.9 1 Each five times 07-19-2019 daily. Use with Onetouch 09-16-2013 Glucometer as directed Use as instructed 05-07-2016 to check blood sugar 3 to 4 times daily DM: yes Insulin: yes DX:11.9 1 Each five times 07-19-2019 daily. Use with Onetouch 09-16-2013 Glucometer as directed Use as instructed 05-07-2016 to check blood sugar 3 to 4 times daily DM: yes Insulin: yes DX:11.9 1 Each five times 07-19-2019 daily. Use with Onetouch 09-16-2013 Glucometer as directed Use as instructed 05-07-2016 to check blood sugar 3 to 4 times daily DM: yes Insulin: yes DX:11.9 1 Each five times 07-19-2019 daily. Use with Onetouch 09-16-2013 Glucometer as directed Use as instructed 05-07-2016 to check blood sugar 3 to 4 times daily DM: yes Insulin: yes DX:11.9 1 Each five times 07-19-2019 daily. Use with [employer] 09-16-2013 Glucometer as directed Goals Patient Goal Desired Goal History of Past Illness Problem Noted Date Resolved Date Chronic diarrhea 09/16/2011 06/07/2014 Labyrinthitis 02/05/2010 06/07/2014 Type 2 diabetes mellitus, uncontrolled 02/16/2008 1 04/21/2014 Duodenitis without mention of hemorrhage 06/07/2014 Problem Noted Date Resolved Date Chronic diarrhea 09/16/2011 06/07/2014 Labyrinthitis 02/05/2010 06/07/2014 Type 2 diabetes mellitus, uncontrolled 02/16/2008 1 04/21/2014 Duodenitis without mention of hemorrhage 06/07/2014 Problem Noted Date Resolved Date Chronic diarrhea 09/16/2011 06/07/2014 Labyrinthitis 02/05/2010 06/07/2014 Type 2 diabetes mellitus, uncontrolled 02/16/2008 1 04/21/2014 Duodenitis without mention of hemorrhage 06/07/2014 Problem Noted Date Resolved Date Chronic diarrhea 09/16/2011 06/07/2014 Labyrinthitis 02/05/2010 06/07/2014 Type 2 diabetes mellitus, uncontrolled 02/16/2008 1 04/21/2014 Duodenitis without mention of hemorrhage 06/07/2014 Problem Noted Date Resolved Date Chronic diarrhea 09/16/2011 06/07/2014 Labyrinthitis 02/05/2010 06/07/2014 Type 2 diabetes mellitus, uncontrolled 02/16/2008 1 04/21/2014 Duodenitis without mention of hemorrhage 06/07/2014 Problem Noted Date Resolved Date Chronic diarrhea 09/16/2011 06/07/2014 Labyrinthitis 02/05/2010 06/07/2014 Type 2 diabetes mellitus, uncontrolled 02/16/2008 1 04/21/2014 Duodenitis without mention of hemorrhage 06/07/2014 Problem Noted Date Resolved Date Chronic diarrhea 09/16/2011 06/07/2014 Labyrinthitis 02/05/2010 06/07/2014 Type 2 diabetes mellitus, uncontrolled 02/16/2008 1 04/21/2014 Duodenitis without mention of hemorrhage 06/07/2014 Summary Purpose Family History No Family History Records FoundNo Family History Records Found Advance Directives No Advanced Directives Records FoundNo Advanced Directives Records Found History of Present Illness Kemi (Pharmacist), Denita - 11/21/2019 3:30 PM EDT TELEPHONIC APPOINTMENT [place] law requires the collaborative practice agreement to be initiated by a physician in order to provide medication titration. Thus, pharmacy will only provide medication recommendations and counseling today, unless recommendations are approved verbally by the consulting provider. ? REASON FOR CONSULT: DM GOALS: A1c <?8% (PCP prefers <7.5%) CONSULTING PROVIDER:?ELBA?Deniz Garsia??? Date of Consult:?09/16/2019 ? Lovely Devi is a 73 year old male was last seen by PCP, Dr. Morgan Valdez III MD on?10/27/2019.? ? Subjective: Patient is CALLED today for Follow Up pharmacotherapy management appointment for diabetes. At 09/15 ROLL TESTER?appt,?insulin NPH dose decreased pt was consulted to pharmacy due to increased hypoglycemia.?At last ROLL TESTER visit gabapentin was initiated and empiric treatment for UTI was started with nitrofurantoin mo nohydrate. At PharmD visit on , insulin lispro dose was decreased and patient was recommended to pursue basal/bolus insulin pens through Where patient assistance. At last PCP appt, no medication changes made but patient was encouraged to watch carbohydrates in diet and exercise regularly. At last pharmacy follow up on 11/04/2019, insulin R doses decreased due to hypoglycemia. INTERIM HISTORY: Feeling well, reports much fewer incidences of hypoglycemia, utilizing sliding scale that's helping improve BG. Last 7 day average on CGM: 145 mg/dL Above: 59 In target: 40% Below: 1% Last 14 day average on CGM: 158 mg/dL Awaiting approval of [employer] insulin through PAP, Humalog and Basaglar. Current DM Medications: Insulin Regular 15 units three times daily with meals Insulin NPH 32?units twice daily Preventative Medications: ? On NIYA/ARB:?Yes ? On Statin:?Yes ? On ASA:?Yes ? ROS: ? Patient?denies?CP, SOB, FAITH, blurred vision, dizziness or lightheadedness ? Patient?denies?symptoms of hypoglycemia (sweating, anxiety, palpitations, hunger, and tremor) ? Patient?denies?symptoms of hyperglycemia (polyuria, polydipsia, polyphagia) ? Patient?denies?potential medication adverse effects ? MEDICATIONS: ? Pill bottles?are not?present. ? Adherence:?denies?missed doses. ? Pharmacy:?[facility] ? Rx coverage:?Medicare ? Affordability:?Gutierrez of brand name insulins is costly on insurance, on Relion brand insulin vials ? Diabetes supplies:?Freestyle Anitra ? 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 Esophageal Reflux Benign Neoplasm of Colon Dermatophytosis of Nail Atrial Fibrillation (Hcc) Anticoagulated On Coumadin Class 2 Severe Obesity Due to Excess Calories With Serious Comorbidity and Body Mass Index (Bmi) of 38.0 to 38.9 in Adult (Hcc) Stasis Dermatitis of Both Legs Foot Callus Subsequent Non-St Elevation (Nstemi) Myocardial Infarction Within 4 Weeks of Initial Infarction (Hcc) Syncope Hyperlipidemia Ldl Goal <100 Ashd (Arteriosclerotic Heart Disease) Neurocardiogenic Syncope 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 ASHD (arteriosclerotic heart disease) 02/19/2015 ? Atrial fibrillation (HCC) 07/03/2011 ? Automatic implantable cardiac defibrillator in situ ? Petit's esophagus with esophagitis 03/01/2015 ? Benign neoplasm of colon ? Chronic diarrhea 09/16/2011 ? Coronary atherosclerosis of unspecified type of vessel, [place] or graft s/p PR in 1985 ? Diverticulosis of colon (without mention of hemorrhage) ? Duodenitis without mention of hemorrhage ? Dysphagia 03/01/2015 ? Facet arthritis of lumbar region 07/14/2017 ? GERD (gastroesophageal reflux disease) 06/10/12 ? Heart attack (HCC) ? Labyrinthitis 02/05/2010 ? Neurocardiogenic syncope 03/01/2015 ? Obesity 09/16/2011 ? JESSICA treated with BiPAP DME [employer] ? Other and unspecified hyperlipidemia ? Other specified forms of chronic ischemic heart disease ? Paroxysmal ventricular tachycardia (HCC) ? Snoring ? Stroke (HCC) ? Tinea of nail 01/13/2011 ? Type 2 diabetes mellitus with st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, with long-term current use of insulin ([facility]) 06/15/2017 ? Unspecified essential hypertension ALLERGIES Allergen Reactions ? Morphine ? Rocephin [Ceftriaxo* Other: See Comments Hot flashes; redness to skin Current Outpatient Medications Medication Sig Dispense Refill ? nortriptyline (PAMELOR) 25 mg capsule Take 1 capsule by mouth daily at bedtime. 30 capsule 5 ? insulin regular human (NOVOLIN R REGULAR U-100 INSULN) 100 unit/mL injection Inject 15 units Subcutaneously three times daily before meals + sliding scale as directed ( 1 unit for every 50 mg/dL above 150 mg/dL) ? gabapentin (NEURONTIN) 300 mg capsule Take 3 capsules by mouth three times daily for 30 days. 270 capsule 0 ? rOPINIRole (REQUIP) 0.5 mg tablet Take 1 tablet by mouth daily at bedtime. 90 tablet 3 ? insulin NPH injection (HumuLIN N,NovoLIN N) 32 units subcutaneous before breakfast and 32 units atbedtime ? latanoprost (XALATAN) 0.005 % ophthalmic solution Use 1 Drop in both eyes three times daily. ? colestipol (COLESTID) 1 gram tablet Take 1 g by mouth twice daily. ? carvedilol (COREG) 3.125 mg tablet Take 2 tablets by mouth twice daily. for one week starting on 06/20/16 then will be taking 6.25 x 2 daily . 0 ? Cholecalciferol, Vitamin D3, 50 mcg (2,000 unit) cap Take 1 capsule by mouth once daily. ? warfarin (COUMADIN) 3 mg tablet 3 mg every Mon, Wed, Fri; 6 mg all other days 150 tablet 3 ? clopidogrel (PLAVIX) 75 mg tablet Take 1 tablet by mouth once daily. 90 tablet 3 ? Insulin Syringe-Needle U-100 (BD ULTRAFINE INSULIN) 1 mL 31 gauge x 5/16 1 Each five times daily. 450 Each 3 ? lisinopril (ZESTRIL, PRINIVIL) 20 mg tablet Take 1 tablet by mouth once daily. 90 tablet 1 ? furosemide (LASIX) 40 mg tablet Take 1 tablet by mouth twice daily. 60 tablet 11 ? BIPAP Initiate BiPAP @ 24/18 cm of water with humidification. Mask (per patient preference), chin strap, filters, tubing / heated tubing, heated humidity and lifetime supplies. Dx. JESSICA G47.33 [phone] - fax compliance download to [phone] 1 Device 0 ? flash glucose sensor (FREESTYLE ANITRA 14 DAY SENSOR) kit 1 Each four times daily. 1 Kit 11 ? Back Brace misc 1 Device once daily as needed. size large 1 Each 0 ? amiodarone (PACERONE) 200 mg tablet Take 1 tablet by mouth once daily. ? spironolactone (ALDACTONE) 25 mg tablet Take 1 tablet by mouth once daily. ? isosorbide mononitrate ER (IMDUR) 30 mg 24 hr tablet Take 60 mg by mouth once daily. 0 ? blood sugar diagnostic ([employer] BLOOD GLUCOSE SYSTEM) test strip Use as instructed to check blood sugar 3 to 4 times daily DM: yes Insulin: yes DX:11.9 400 Strip 3 ? ranolazine SR (RANEXA) 1,000 mg Tb12 Take 1 tablet by mouth twice daily. ? fenofibrate nanocrystallized (TRICOR) 145 mg tablet Take 1 tablet by mouth once daily. 0 ? pantoprazole DR (PROTONIX) 40 mg tablet Take 40 mg by mouth once daily. ? Lancets (ONE TOUCH ULTRASOFT LANCETS) lancets Use with [employer] Glucometer as directed 100 Each 3 ? Aspirin 81 mg ORAL Tab Take 1 tablet by mouth once daily. Take with food. 30 tablet 11 ? CRESTOR 40 MG TAB Take one(1) tablet daily. 0 ? NITROGLYCERIN 0.3 MG SUBLINGUAL TAB Dissolve 0.4 mg under the tongue. Usual dose for angina is 1 tablet every 5 minutes for maximum of 3 doses in 15 minutes. 0 No current facility-administered medications for this visit. Objective: Last 3 Encounter BP Readings: Date: BP: 10/27/2019 119/72 10/06/2019 128/70 09/16/2019 122/70 Wt: 120.7 kg (266 lb) BMI: 40.45 kg/(m^2) LABS Lab Results Component Value Date HBA1C 7.6 10/14/2019 HBA1C 6.8 04/21/2019 HBA1C 7.3 01/14/2019 CMP: Glucose 197 10/14/2019 BUN 27 10/14/2019 Creatinine 1.30 10/14/2019 Sodium 135 10/14/2019 Potassium 4.6 10/14/2019 Chloride 101 10/14/2019 CO2 24 10/14/2019 Protein, Total 6.0 10/14/2019 Albumin 4.1 10/14/2019 Calcium 9.0 10/14/2019 Alkaline Phosphatase 55 10/14/2019 Bilirubin, Total 0.4 10/14/2019 AST 23 10/14/2019 ALT 26 10/14/2019 eGFR = 54 mL/min/1.73m2 Vitamin B12 Date Value Ref Range Status 12/17/2018 384 232 - 1,245 pg/mL Final Lab Results Component Value Date CHOL 123 10/14/2019 LDL 53 10/14/2019 HDL 35 10/14/2019 TG 177 10/14/2019 Albumin/Creat Ratio (mg/g) Date Value 10/14/2019 Not calculated PHARMACOTHERAPY ASSESSMENT/PLAN: 1. Type 2 diabetes mellitus with st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, with long-term current use of insulin ([facility]) - ICD9: 250.40, 585.3, V58.67, ICD10: E11.22, N18.3, Z79.4 A1c goal <?8% (PCP prefers 7.5%);?not at goal?(last A1c 7.6%); SMBG?at goal?on current regimen with decreased incidences of s/sx hypoglycemia. He has h/o hypoglycemia unawareness with BG in the 50s but reports no longer experiencing BG and CGM shows hypoglycemia decreased to 1%. No medication change s recommended today. Awaiting approval of new basal/bolus insulin pens from [facility].?Renal function and LFTs appropriate for continued use. [place] law requires the collaborative practice agreement to be initiated by a physician in order to provide medication titration. Thus, pharmacy will only provide medication recommendations and counseling today, unless recommendations are approved verbally by the consulting provider. ? Recommend to continue insulin R to 15 units before meals three times daily plus sliding scale? Add 0 units if Blood Sugar is between 70-150 Add 1 units if Blood Sugar is between 151-200 Add 2 units if Blood Sugar is between 201-250 Add 3 units if Blood Sugar is between 251-300 Add 4 units if Blood Sugar is between 301-350 Add 5 units if Blood Sugar is between 351-400 BS > 400 , call your physician ? Recommend to continue insulin NPH 32 units twice daily? ? Awaiting approval for switching to Basaglar and Humalog through Where patient assistance, will replace current insulins. ? ACEi/ARB for renal protection:?yes, Scr and K+ ok to continue ? HbA1c: 01/14/2020 Patient is not scheduled to see PCP. Patient to follow up with PharmD, pt to call me by end of week with update on if approved by PAP. Patient verbalized understanding of instructions. Denita Thorpe, LisaD, BCACP Primary Care Clinical Pharmacist [facility] documented in this encounter Assessments Diagnosis Type 2 diabetes mellitus with stage 3 ch ronic kidney disease, with long-term current use of insulin (HCC) - Primary Diagnosis Anticoagulated on Coumadin - Primary Encounter for therapeutic drug monitorin g Paroxysmal atrial fibrillation (HCC) Atrial fibrillation Diagnosis Type 2 diabetes mellitus with diabetic n europathy, with long-term current use of insulin (HCC) Additional Source Comments FOR RECORDS PERTAINING TO PATIENTS WHO ARE OR HAVE BEEN ENROLLED IN A CHEMICAL DEPENDENCY/SUBSTANCE ABUSE PROGRAM, SOME INFORMATION MAY BE OMITTED. This clinical summary was aggregated from multiple sources. Caution should be exercised in using it in the provision of clinical care. This summary normalizes information from multiple sources, and as a consequence, information in this document may materially changethe coding, format and clinical context of patient data. In addition, data may be omittedin some cases. CLINICAL DECISIONS SHOULD BE BASED ON THE PRIMARY CLINICAL RECORDS. [employer] provides no warranty or guarantee of the accuracy or completeness of information in this document. UNRECOGNIZED CONTENT PROVIDED BELOW FOR UNRECOGNIZED SECTION Source Comments In the event this information is protected by the Federal Confidentiality of Alcohol and Drug Abuse Patient Records regulations: The Federal rules restrict any use of the information to criminally investigate or prosecute any alcohol or drug abuse patient.[facility] event this information is protected by the Federal Confidentiality of Alcohol and Drug Abuse Patient Records regulations: The Federal rules restrict any use of the information to criminally investigate or prosecute any alcohol or drug abuse patient.[facility] the event this information is protected by the Federal Confidentiality of Alcohol and Drug Abuse Patient Records regulations: The Federal rules restrict any use of the information to criminally investigate or prosecute any alcohol or drug abuse patient.[facility] the event this information is protected by the Federal Confidentiality of Alcohol and Drug Abuse Patient Records regulations: The Federal rules restrict any use of the information to criminally investigate or prosecute any alcohol or drug abuse patient.[facility] the event this information is protected by the Federal Confidentiality of Alcohol and Drug Abuse Patient Records regulations: The Federal rules restrict any use of the information to criminally investigate or prosecute any alcohol or drug abuse patient.[facility] the event this information is protected by the Federal Confidentiality of Alcohol and Drug Abuse Patient Records regulations: The Federal rules restrict any use of the information to criminally investigate or prosecute any alcohol or drug abuse patient.[facility] the event this information is protected by the Federal Confidentiality of Alcohol and Drug Abuse Patient Records regulations: The Federal rules restrict any use of the information to criminally investigate or prosecute any alcohol or drug abuse patient.[facility] the event this information is protected by the Federal Confidentiality of Alcohol and Drug Abuse Patient Records regulations: The Federal rules restrict any use of the information to criminally investigate or prosecute any alcohol or drug abuse patient.[facility] the event this information is protected by the Federal Confidentiality of Alcohol and Drug Abuse Patient Records regulations: The Federal rules restrict any use of the information to criminally investigate or prosecute any alcohol or drug abuse patient.[facility] the event this information is protected by the Federal Confidentiality of Alcohol and Drug Abuse Patient Records regulations: The Federal rules restrict any use of the information to criminally investigate or prosecute any alcohol or drug abuse patient.[facility] the event this information is protected by the Federal Confidentiality of Alcohol and Drug Abuse Patient Records regulations: The Federal rules restrict any use of the information to criminally investigate or prosecute any alcohol or drug abuse patient.[facility] the event this information is protected by the Federal Confidentiality of Alcohol and Drug Abuse Patient Records regulations: The Federal rules restrict any use of the information to criminally investigate or prosecute any alcohol or drug abuse patient.[facility] the event this information is protected by the Federal Confidentiality of Alcohol and Drug Abuse Patient Records regulations: The Federal rules restrict any use of the information to criminally investigate or prosecute any alcohol or drug abuse patient.[facility]In the event this information is protected by the Federal Confidentiality of Alcohol and Drug Abuse Patient Records regulations: The Federal rules restrict any use of the information to criminally investigate or prosecute any alcohol or drug abuse patient.[facility] HamiltonIn the event this information is protected by the Federal Confidentiality of Alcohol and Drug Abuse Patient Records regulations: The Federal rules restrict any use of the information to criminally investigate or prosecute any alcohol or drug abuse patient.[facility] UNRECOGNIZED CONTENT PROVIDED BELOW FOR UNRECOGNIZED SECTION No Status Records FoundNo Status Records Found UNRECOGNIZED CONTENT PROVIDED BELOW FOR UNRECOGNIZED SECTION INFORMATION SOURCE DATE CREATED AUTHOR AUTHOR'S ORGANIZATIO N 09/22/2017 [facility] ([place]) DATE CREATED AUTHOR AUTHOR'S ORGANIZATIO N 01/07/[address] [facility] UNRECOGNIZED CONTENT PROVIDED BELOW FOR UNRECOGNIZED SECTION Miscellaneous Notes Telephone Encounter - Stephy Morgan Mooney III - 11/16/2019 8:36 AM EDTThis Team Access Model visit is a Mychart message encounter. It required patient-provider interaction for the medical decision making as documented below. Lovely, Does the gabapentin help enough for a few hours, but not last long enough until the next dose? Or does the present dose of gabapentin not do much of anything to help with the pain? Morgan Valdez III, MD, FAAFP documented in this encounterTelephone Encounter - Kemi (Pharmacist)Denita - 11/28/2019 4:36 PM EDTCalled and [facility] they confirm that Basaglar is ready for delivery. Will arrive tomorrow. Called and spoke with pt's , Ila to ensure someone over the age of 18 is home to sign for package. She verbalized understanding. Denita Thorpe PharmD, BCACP Primary Care Clinical Pharmacist [facility] Telephone Encounter - Kemi (Pharmacist)Denita - 11/23/2019 1:25 PM EDTOrders for both Humalog and Basaglar (to replace Humulin) were sent to [facility] on 10/23. Attempted to call [facility] to clarify, unable to reach bank representative. Was able to leave voicemail on prescriber line asking for call or fax back to me with indication regarding if they need further clarification for Basaglar. Called and spoke with pt, he confirms receiving Humalog (#25 pens) but no Basaglar. Advised him I would let him know once we get information or he can also attempt to call the number on the box to see if able to get an update. Denita Thorpe PharmD, BCACP Primary Care Clinical Pharmacist [facility] Telephone Encounter - Ronen Avery LPN - 11/23/2019 10:35 AM EDTPt calls to state he would like to let Denita know that he received his Humalog quick pens but has notreceived his Humulin quick pens yet. Ronen Avery LPN documented in this encounterTelephone Encounter - Emilie (Pharmacist), Gabriela - 12/06/2019 5:22 PM EDT [facility] Referring provider: No ref. provider found Lovely Devi is a 74 year old year old male patient being evaluated today for anticoagulation Telemanagement visit. Patient is currently on the following anticoagulant Warfarin Labs PT INR (no units) Date Value 11/26/2018 Test sent to [facility]. 10/16/2017 1.8 01/16/2017 Test sent to [facility]. INR (POCT) (no units) Date Value 02/21/2019 2.9 01/24/2019 2.9 01/17/2019 3.2 INR Home CoaguChek (no units) Date Value 12/06/2019 1.6 11/23/2019 1.7 11/09/2019 2.7 Hemoglobin (g/dL) Date Value 01/14/2019 12.0 Hematocrit (%) Date Value 01/14/2019 37.9 Platelet Count (k/uL) Date Value 01/14/2019 154 Creatinine (mg/dL) Date Value 10/14/2019 1.30 04/21/2019 1.35 01/14/2019 1.24 Bilirubin, Total (mg/dL) Date Value 10/14/2019 0.4 ALT (U/L) Date Value 10/14/2019 26 AST (U/L) Date Value 10/14/2019 23 CrCl cannot be calculated (Unknown ideal weight.). ALLERGIES Allergen Reactions ? Morphine ? Rocephin [Ceftriaxo* Other: See Comments Hot flashes; redness to skin Indication for Warfarin: Paroxysmal atrial fibrillation (hcc) Anticoagulated on coumadin Goal INR Range: @INRGOAL@ Assessment: ? INR result of 1.6 is SUBtherapeutic due to: recent hospitalization per patient. Plan: ? Advised patient to increase dose for 1 day only then resume weekly regimen ? Next home INR check scheduled on 12/20/2019 ? Patient verbalizes understanding of the plan. ? Patient denies need for refills. Gabriela Phan, Pharmacist Clinical Pharmacist, [facility]acy [facility]tico[facility] Pager: [phone] Description Patient has 3 mg tablets of warfarin. Patient takes in the morning. . Telephone Encounter - Shawn ([place]), Cristina - 12/06/2019 5:13 PM EDT Patient called and left message that stated he received a message re: his INR result and dosing but he couldn't understand what dose to take of his warfarin. Patient can be reached at [phone]. Cristina Escobar CPhT (Physician) [facility]acy [facility]tico[facility] Telephone Encounter - Andre (Pharmacist)Lee - 12/06/2019 3:29 PM EDT [facility] Lovely Devi is a 74 year old year old male patient being evaluated today for anticoagulation Telemanagement visit. Patient is currently on the following anticoagulant Warfarin Labs PT INR (no units) Date Value 11/26/2018 Test sent to [facility]. 10/16/2017 1.8 01/16/2017 Test sent to [facility]. INR (POCT) (no units) Date Value 02/21/2019 2.9 01/24/2019 2.9 01/17/2019 3.2 INR Home CoaguChek (no units) Date Value 12/06/2019 1.6 11/23/2019 1.7 11/09/2019 2.7 Hemoglobin (g/dL) Date Value 01/14/2019 12.0 Hematocrit (%) Date Value 01/14/2019 37.9 Platelet Count (k/uL) Date Value 01/14/2019 154 Creatinine (mg/dL) Date Value 10/14/2019 1.30 04/21/2019 1.35 01/14/2019 1.24 Bilirubin, Total (mg/dL) Date Value 10/14/2019 0.4 ALT (U/L) Date Value 10/14/2019 26 AST (U/L) Date Value 10/14/2019 23 CrCl cannot be calculated (Unknown ideal weight.). ALLERGIES Allergen Reactions ? Morphine ? Rocephin [Ceftriaxo* Other: See Comments Hot flashes; redness to skin Indication for Warfarin: Paroxysmal atrial fibrillation (hcc) Anticoagulated on coumadin Goal INR Range: Assessment: ? INR result of 1.6 is subtherapeutic. Plan: ? Advised patient to take 6mg today and tomorrow. Next home INR check scheduled on 12/20/2019 LVM for patient with above information and advised to call PAC at [phone] if any questions or changes to report. Would like to try one more time to reach patient. INR 2 weeks ago was low and leftVM for patient so not sure if he got message. Lee Moss, Pharmacist Clinical Pharmacist, Pharmacy Anticoagulation Clinic Pharmacy [facility]tico[facility] Pager: [phone] Description Patient has 3 mg tablets of warfarin. Patient takes in the morning. . documented in this encounterTelephone Encounter - Nette Goetz Ma, MA - 12/07/2019 9:55 AM EDTLast Refill:11/26/19 Qty:270 Refills:0 Next Scheduled Office Visit:none Last Office Visit:10/27/19 Nette Goetz MA documented in this encounterTelephone Encounter - Morgan Valdez III - 12/08/2019 1:26 PM EDTnoted Morgan Valdez III MD elephone Encounter - Tasha Chan RN - 12/08/2019 1:[facility] reporting POC- reports this was a delay of care visit: reports this was a 1 time visit only, patient is doing well, Argelia went over breathing techniques for SOB, and left her phone # with patient to call with any questions or concerns. documented in this encounterTelephone Encounter - Kemi (Pharmacist)Denita - 12/01/2019 2:27 PM EDTReturned call to patient. Pt's answers phone to state that insulin package was received today. Denita Thorpe, PharmD, BCACP Primary Care Clinical Pharmacist [facility] Telephone Encounter - Cindi Pichardo RN - 11/30/2019 12:54 PM EDTPatient wanted Pharmacist Denita aware that his mail came today and he did not receive the Basaglar insulin from [facility] in the mail yesterday or today. He was told to call Denita if did not receive insulin. Please review and advise. Cindi Pichardo RN documented in this encounterTelephone Encounter - Blossom (Pharmacist)Joleen - 12/21/2019 9:15 AM EDT [facility] Referring provider: No ref. provider found Lovely Devi is a 74 year old year old male patient being evaluated today for anticoagulation Telemanagement visit. Patient is currently on the following anticoagulant Warfarin Labs PT INR (no units) Date Value 11/26/2018 Test sent to [facility]. 10/16/2017 1.8 01/16/2017 Test sent to [facility]. INR (POCT) (no units) Date Value 02/21/2019 2.9 01/24/2019 2.9 01/17/2019 3.2 INR Home CoaguChek (no units) Date Value 12/21/2019 1.9 12/06/2019 1.6 11/23/2019 1.7 Hemoglobin (g/dL) Date Value 01/14/2019 12.0 Hematocrit (%) Date Value 01/14/2019 37.9 HCT (%) Date Value 12/09/2019 38.6 Platelet Count (k/uL) Date Value 01/14/2019 154 PLT (K/uL) Date Value 12/09/2019 168 Creatinine Date Value 12/09/2019 1.68 MG/DL 10/14/2019 1.30 mg/dL 04/21/2019 1.35 mg/dL 01/14/2019 1.24 mg/dL Bilirubin, Total (mg/dL) Date Value 10/14/2019 0.4 ALT (U/L) Date Value 10/14/2019 26 AST (U/L) Date Value 10/14/2019 23 CrCl cannot be calculated (Unknown ideal weight.). ALLERGIES Allergen Reactions ? Morphine ? Rocephin [Ceftriaxo* Other: See Comments Hot flashes; redness to skin Indication for Warfarin: Goal INR Range: @INRGOAL@ Assessment: ? INR result of 1.9 is subtherapeutic but trending on the low end. ? Pt denies missed or decrease doses, changes in Warfarin tablet color or shape, eating more green vegetables, or consumption of liver or green tea, Ensure, Boost, [place] Instant Breakfast, Mulit-Vitamins, and V-8. Plan: ? Advised patient to continue with a higher weekly warfarin dose at this time. ? Next home INR check scheduled on 01/04/2020 ? Patient verbalizes understanding of the plan. JOLEEN CERRATO PHARMACIST Clinical Pharmacist, Pharmacy Anticoagulation Clinic [facility] Pager: [phone] Description Patient has 3 mg tablets of warfarin. Patient takes in the morning. . Telephone Encounter - Andre (Pharmacist)Lee - 12/20/2019 5:06 PM EDTPatient was due to test INR today. Will continue to monitor for results. Anshul Mccray documented in this encounterTelephone Encounter - Linwood Carpenter Cma, MA - 12/28/2019 9:08 AM EDTDetailed message left for patient. Linwood Carpenter CMA Telephone Encounter - Morgan Valdez III - 12/27/2019 6:03 PM EDTrecheck INR 7 days after resuming the coumadin. (01/15) Morgan Valdez III MD elephone Encounter - Linwood Carpenter Cma, MA - 12/27/2019 5:51 PM EDTPatient notified, voiced understanding. Linwood Carpetner CMA Patient wants to know how long after he resumes his coumadin should he get his INR checked, he goes back on coumadin on 01/08, his next scheduled INR is 01/10. Please advise. Electronically signed by Linwood GonzálesL[facility]aster Rehabilitation [facility]) JAZZY Carpenter at 12/27/2019 5:53 PM EDT Telephone Encounter - Morgan Valdez III - 12/27/2019 5:25 PM EDTno need for INR check prior to him stopping the coumadin Morgan Valdez III MD elephone Encounter - Samina Feliciano RN - 12/27/2019 9:26 AM EDTPt called, verified by name and birthdate. Pt states he is having leg surgery on 01-04-2020. Pt states he is going to be off coumadin from 01-01-2020 thru 01-08-2020. Pt will be starting Lovenox on 01-01-2020. Pt wants to know if he needs to check his INR before the surgery since he was scheduled to check it on 01-04-2020. Please advise Samina Feliciano RN documented in this encounterTelephone Encounter - Linda Ngo Ma - 01/06/2020 11:55 AM EDT Patient has been identified by name and date of : Yes Pending Prescriptions Disp Refills GABAPENTIN 300 MG CAPSULE 270 capsule 0 Sig: Take 3 capsules by mouth three times daily for 30 days. ZBIGNIEW: No RX INSTRUCTIONS: Patient aware RX will be sent to pharmacy. No need to notify patient. Linda Ngo Ma Last ov: 09/2019 Last refill: 11/2019 No appointment scheduled documented in this encounterTelephone Encounter - Morgan Valdez III - 01/09/2020 1:53 PM EDTnoted Morgan Valdez III MD elephone Encounter - Kemi GonzálesPharmacist)Denita - 01/09/2020 11:16 AM EDTDuplicate message. Addressed with patient as documented in Pharmacy MyChart encounter from 01/07/2020. Please refer to that encounter. Denita Thorpe, PharmD, BCACP Primary Care Clinical Pharmacist [facility] documented in this encounter UNRECOGNIZED CONTENT PROVIDED BELOW FOR UNRECOGNIZED SECTION Reason for Visit Reason Onset Date Comments Medication Update 11/23/2019 Reason Comments Allied Health Visit DM Reason Onset Date Comments Anticoagulation Telephone Fu 12/06/2019 Home INR re sult Reason Onset Date Comments Refill Request 12/07/2019 Reason Onset Date Comments [facility] OT POC 12/08/2019 Reason Onset Date Comments insulin did not arrive 11/30/2019 Reason Comments Outside Lab Results CBC, BMP Reason Onset Date Comments Anticoagulation Telephone Fu 12/20/2019 Home INR re sult Reason Onset Date Comments Patient Question 12/27/2019 Reason Onset Date Comments Refill Request 01/06/2020
--- OUTSIDE RECORDS SUMMARY | 2020-01-10 12:59 | XMS RPT_ITS | CCD ---
:1945 External Reference #:[id number] Author Organization [facility] Care Team Providers Name Role Phone [...] Onset ceftriaxone rash Severe, Severe 06-19-2016 - [facility] ([id number]) cefTRIAXone Other: See Comments 06-20-2014 - Ashlee richardson [facility] (91058) cow milk diarrhea (lactose Moderate, 06-19-2016 - [facility] art Translations: [ intolerant) Moderate Group (18345 ) MILK] Morphine Hallucinations Severe, Critical 02-28-2005 - [facility] (01366) Medications Medication Name Sig Date Prescriber Location Amiodarone amiodarone (PACERONE) 11-26-2017 Morgan Valdez [facility] 200 mg tablet Take 1 (69078) tablet by mouth once daily. 0 11/26/2017 Active Comment: Take 1 tablet by mouth once daily. amLODIPine AMLODIPINE BESYLATE 5 MG TABS One 09-06-2013 [facility] (26815) tablet by mouth daily AMLODIPINE BESYLATE [id number] Melany Khanna PA-C AMLODIPINE BESYLATE 10 MG 09-06-2013 Melany Restrepo RN [facility] TABS One tablet by mouth (09207) daily AMLODIPINE BESYLATE [id number] Melany Khanna PA-C aspirin Aspirin 81 mg ORAL Tab Take 06-10-2011 Morgan Veeselina [facility] 1 tablet by mouth once (4469 1) daily. Take with food. 30 tablet 11 07/07/2011 Active ASPIRIN 81 MG TABS One tablet by mouth twice 06-10-2011 [facility] (55928) daily ASPIRIN [id number] Rahul Anaya MD ASPIRIN 81 MG TABS One tablet by mouth daily 06-10-2011 [facility] (01095) ASPIRIN [id number] Kath Esquivel MD ASPIRIN 81 MG TABS One tablet by mouth twice 06-10-2011 [facility] (20584) daily ASPIRIN [id number] Rahul Anaya MD ASPIRIN EC 81 MG TBEC One tablet by mouth 06-10-2011 [facility] (20162) daily ASPIRIN [id number] Jessica Odom RN ASPIRIN 325 MG TABS One tablet by mouth 07-16-2010 [facility] (04753) daily ASPIRIN [id number] Tracee Beard Comment: Take 1 tablet by mouth once daily. Take with food. [facility] Br[facility]-2018 Morgan Rosado [facility] Indications: Class 2 (41364) severe obesity due to excess calories with serious comorbidity and body mass index (BMI) of 38.0 to 38.9 in adult ([facility]) , Facet arthritis of lumbar region 1 Device once daily as needed. size large 1 Each 0 01/31/2018 Active Back Brace [facility] Indications: Class 01-31-2018 Morgan Valdez [facility] (94772) 2 severe obesity due to excess calories with serious comorbidity and body mass index (BMI) of 38.0 to 38.9 in adult ([facility]) , Facet arthritis of lumbar region 1 Device once daily as needed. size large 1 Each 0 01/31/2018 Active Back Brace misc Indications: Class 01-31-2018 Morgan A [facility] (97484) 2 severe obesity due to excess calories with serious comorbidity and body mass index (BMI) of 38.0 to 38.9 in adult (HCC) , Facet arthritis of lumbar region 1 Device once daily as needed. size large 1 Each 0 01/31/2018 Active Back Brace misc Indications: Class 01-31-2018 [facility] (88208) 2 severe obesity due to excess calories with serious comorbidity and body mass index (BMI) of 38.0 to 38.9 in adult (HCC) , Facet arthritis of lumbar region 1 Device once daily as needed. size large 1 Each 0 01/31/2018 Active Back Brace misc Indications: Class 01-31-2018 [facility] (90596) 2 severe obesity due to excess calories with serious comorbidity and body mass index (BMI) of 38.0 to 38.9 in adult (HCC) , Facet arthritis of lumbar region 1 Device once daily as needed. size large 1 Each 0 01/31/2018 Active Back Brace misc Indications: Class 01-31-2018 [facility] (15781) 2 severe obesity due to excess calories with serious comorbidity and body mass index (BMI) of 38.0 to 38.9 in adult (HCC) , Facet arthritis of lumbar region 1 Device once daily as needed. size large 1 Each 0 01/31/2018 Active Back Brace misc Indications: Class 01-31-2018 [facility] (16650) 2 severe obesity due to excess calories with serious comorbidity and body mass index (BMI) of 38.0 to 38.9 in adult (HCC) , Facet arthritis of lumbar region 1 Device once daily as needed. size large 1 Each 0 01/31/2018 Active Back Brace misc Indications: Class 01-31-2018 [facility] (72196) 2 severe obesity due to excess calories with serious comorbidity and body mass index (BMI) of 38.0 to 38.9 in adult (HCC) , Facet arthritis of lumbar region 1 Device once daily as needed. size large 1 Each 0 01/31/2018 Active Back Brace misc Indications: Class 01-31-2018 Morgan A Cebul [facility] (80270) 2 severe obesity due to excess calories with serious comorbidity and body mass index (BMI) of 38.0 to 38.9 in adult (HCC) , Facet arthritis of lumbar region 1 Device once daily as needed. size large 1 Each 0 01/31/2018 Active Back Brace misc Indications: Class 01-31-2018 Morgan A bul [facility] (25003) 2 severe obesity due to excess calories with serious comorbidity and body mass index (BMI) of 38.0 to 38.9 in adult (HCC) , Facet arthritis of lumbar region 1 Device once daily as needed. size large 1 Each 0 01/31/2018 Active Back Brace misc Indications: Class 01-31-2018 Morgan A [facility] (69543) 2 severe obesity due to excess calories with serious comorbidity and body mass index (BMI) of 38.0 to 38.9 in adult (HCC) , Facet arthritis of lumbar region 1 Device once daily as needed. size large 1 Each 0 01/31/2018 Active Back Brace misc Indications: Class 01-31-2018 Morgan A [facility] (54700) 2 severe obesity due to excess calories with serious comorbidity and body mass index (BMI) of 38.0 to 38.9 in adult (HCC) , Facet arthritis of lumbar region 1 Device once daily as needed. size large 1 Each 0 01/31/2018 Active Back Brace misc Indications: Class 01-31-2018 Morgan A [facility] (75929) 2 severe obesity due to excess calories with serious comorbidity and body mass index (BMI) of 38.0 to 38.9 in adult (HCC) , Facet arthritis of lumbar region 1 Device once daily as needed. size large 1 Each 0 01/31/2018 Active Back Brace misc Indications: Class 01-31-2018 Morgan A [facility] (64396) 2 severe obesity due to excess calories with serious comorbidity and body mass index (BMI) of 38.0 to 38.9 in adult (HCC) , Facet arthritis of lumbar region 1 Device once daily as needed. size large 1 Each 0 01/31/2018 Active Back Brace misc Indications: Class 01-31-2018 Morgan A [facility] (43024) 2 severe obesity due to excess calories with serious comorbidity and body mass index (BMI) of 38.0 to 38.9 in adult (HCC) , Facet arthritis of lumbar region 1 Device once daily as needed. size large 1 Each 0 01/31/2018 Active Back Brace misc Indications: Class 01-31-2018 Morgan Mooney [facility] (24636) 2 severe obesity due to excess calories with serious comorbidity and body mass index (BMI) of 38.0 to 38.9 in adult (HCC) , Facet arthritis of lumbar region 1 Device once daily as needed. size large 1 Each 0 01/31/2018 Active Back Brace misc Indications: Class 01-31-2018 Morgan Mooney [facility] (38785) 2 severe obesity due to excess calories with serious comorbidity and body mass index (BMI) of 38.0 to 38.9 in adult (HCC) , Facet arthritis of lumbar region 1 Device once daily as needed. size large 1 Each 0 01/31/2018 Active Comment: 1 Device once daily as neede d. size large BIPAP BIPAP Initiate BiPAP @ 24- Nik E Mo [facility] cm of water with (36719) humidification. Mask (per patient preference), chin strap, filters, tubing / heated tubing, heated humidity and lifetime supplies. Dx. JESSICA G47.33 327.23 - fax compliance download to [phone] 1 Device 0 09/15/2018 Active BIPAP Initiate BiPAP @ 24/18 cm of 09-15-2018 Nik E Angela [facility] (77497) water with humidification. Mask (per patient preference), chin strap, filters, tubing / heated tubing, heated humidity and lifetime supplies. Dx. JESSICA G47.33 327.23 - fax compliance download to [phone] 1 Device 0 09/15/2018 Active BIPAP Initiate BiPAP @ 24/18 cm of 09-15-2018 Nik E Angela [facility] (37353) water with humidification. Mask (per patient preference), chin strap, filters, tubing / heated tubing, heated humidity and lifetime supplies. Dx. JESSICA G47.33 327.23 - fax compliance download to [phone] 1 Device 0 09/15/2018 Active BIPAP Initiate BiPAP @ 24/18 cm of 09-15-2018 [facility] (21661) water with humidification. Mask (per patient preference), chin strap, filters, tubing / heated tubing, heated humidity and lifetime supplies. Dx. JESSICA G47.33 327.23 - fax compliance download to [phone] 1 Device 0 09/15/2018 Active BIPAP Initiate BiPAP @ 24/18 cm of 09-15-2018 [facility] (66744) water with humidification. Mask (per patient preference), chin strap, filters, tubing / heated tubing, heated humidity and lifetime supplies. Dx. JESSICA G47.33 327.23 - fax compliance download to [phone] 1 Device 0 09/15/2018 Active BIPAP Initiate BiPAP @ 24/18 cm of 09-15-2018 [facility] (51735) water with humidification. Mask (per patient preference), chin strap, filters, tubing / heated tubing, heated humidity and lifetime supplies. Dx. JESSICA G47.33 327.23 - fax compliance download to [phone] 1 Device 0 09/15/2018 Active BIPAP Initiate BiPAP @ 24/18 cm of 09-15-2018 [facility] (16348) water with humidification. Mask (per patient preference), chin strap, filters, tubing / heated tubing, heated humidity and lifetime supplies. Dx. JESSICA G47.33 327.23 - fax compliance download to [phone] 1 Device 0 09/15/2018 Active BIPAP Initiate BiPAP @ 24/18 cm of 09-15-2018 [facility] (04334) water with humidification. Mask (per patient preference), chin strap, filters, tubing / heated tubing, heated humidity and lifetime supplies. Dx. JESSICA G47.33 327.23 - fax compliance download to [phone] 1 Device 0 09/15/2018 Active BIPAP Initiate BiPAP @ 24/18 cm of 09-15-2018 [facility] (81270) water with humidification. Mask (per patient preference), chin strap, filters, tubing / heated tubing, heated humidity and lifetime supplies. Dx. JESSICA G47.33 327.23 - fax compliance download to [phone] 1 Device 0 09/15/2018 Active BIPAP Initiate BiPAP @ 24/18 cm of 09-15-2018 [facility] (22017) water with humidification. Mask (per patient preference), chin strap, filters, tubing / heated tubing, heated humidity and lifetime supplies. Dx. JESSICA G47.33 327.23 - fax compliance download to [phone] 1 Device 0 09/15/2018 Active BIPAP Initiate BiPAP @ 24/18 cm of 09-15-2018 Nik E [facility] (11475) water with humidification. Mask (per patient preference), chin strap, filters, tubing / heated tubing, heated humidity and lifetime supplies. Dx. JESSICA G47.33 327.23 - fax compliance download to [phone] 1 Device 0 09/15/2018 Active BIPAP Initiate BiPAP @ 24/18 cm of 09-15-2018 [facility] (50115) water with humidification. Mask (per patient preference), chin strap, filters, tubing / heated tubing, heated humidity and lifetime supplies. Dx. JESSICA G47.33 327.23 - fax compliance download to [phone] 1 Device 0 09/15/2018 Active BIPAP Initiate BiPAP @ 24/18 cm of 09-15-2018 [facility] (06710) water with humidification. Mask (per patient preference), chin strap, filters, tubing / heated tubing, heated humidity and lifetime supplies. Dx. JESSICA G47.33 327.23 - fax compliance download to [phone] 1 Device 0 09/15/2018 Active BIPAP Initiate BiPAP @ 24/18 cm of 09-15-2018 [facility] (64446) water with humidification. Mask (per patient preference), chin strap, filters, tubing / heated tubing, heated humidity and lifetime supplies. Dx. JESSICA G47.33 327.23 - fax compliance download to [phone] 1 Device 0 09/15/2018 Active BIPAP Initiate BiPAP @ 24/18 cm of 09-15-2018 Nik [facility] (78710) water with humidification. Mask (per patient preference), chin strap, filters, tubing / heated tubing, heated humidity and lifetime supplies. Dx. JESSICA G47.33 327.23 - fax compliance download to [phone] 1 Device 0 09/15/2018 Active BIPAP Initiate BiPAP @ 24/18 cm of 09-15-2018 Nik Quincy [facility] (33658) water with humidification. Mask (per patient preference), chin strap, filters, tubing / heated tubing, heated humidity and lifetime supplies. Dx. JESSICA G47.33 327.23 - fax compliance download to [phone] 1 Device 0 09/15/2018 Active BIPAP Initiate BiPAP @ 24/18 cm of 09-15-2018 Nik E [facility] (12135) water with humidification. Mask (per patient preference), chin strap, filters, tubing / heated tubing, heated humidity and lifetime supplies. Dx. JESSICA G47.33 327.23 - fax compliance download to [phone] 1 Device 0 09/15/2018 Active Comment: Initiate BiPAP @ 24/18 cm of water with humidification. Mask (per patient preference), chin strap, alida ters, tubing / heated tubing, heated humidity and lifetime supplies. Dx. O SA G47.33 327.23 - fax compliance download to [phone] carvedilol carvedilol (COREG) 3.125 09-16-2019 Deniz Payne [facility] mg tablet Take 2 tablets (44 691) by mouth twice daily. for one week starting on 06/20/16 then will be taking 6.25 x 2 daily . 0 09/16/2019 Active COREG 6.25 MG TABS One 06-19-2016 [facility] tablet by mouth twice (61283) daily CARVEDILOL [id number] Johan Perry MD COREG 3.125 MG TABS One 12-06-2014 - 02-07-2015 Melissa Marks RN [facility] tablet by mouth twice (65912) daily CARVEDILOL [id number] Johan Perry MD Comment: Take 2 tablets by mouth twic e daily. for one week starting on 06/20/16 then will be taking 6.25 x 2 ajay y . cephalexin CEPHALEXIN 500 MG 07-16-2010 - [facility] TABS One tablet by 06-10-2011 Group (44 691) mouth three times daily CEPHALEXIN [id number] Tracee Beard Cholecalciferol Cholecalciferol, 09-16-2019 [facility] Vitamin [facility]3, 50 mcg (26026) (2,000 unit) cap Indications: Vitamin D deficiency Take 1 capsule by mouth once daily. 0 09/16/2019 Active Comment: Take 1 capsule by mouth once daily. clopidogrel clopidogrel (PLAVIX) 75 mg 08-29-2019 Morgan Valdez [facility] tablet Indications: (12175) Subsequent non-ST elevation (NSTEMI) myocardial infarction within 4 weeks of initial infarction (HCC) Take 1 tablet by mouth once daily. 90 tablet 3 08/29/2019 Active PLAVIX 75 MG TABS One tablet by mouth daily 03-04-2012 [facility] (58825) CLOPIDOGREL BISULFATE [id number] Rahul Anaya MD Comment: Take 1 tablet by mouth once daily. colestipol COLESTID 1 GM TABS One 11-24-2011 - 01-01-2017 [facility] tablet by mouth twice (66603 ) daily COLESTIPOL HCL [id number] Melany Khanna PA-C COLESTID 1 GM TABS Two 11-24-2011 [facility] by mouth twice Group (44 691) daily COLESTIPOL HCL [id number] Johan Perry MD COLESTID 1 GM TABS One 11-24-2011 [facility] tablet by mouth twice Group (446 91) daily COLESTIPOL HCL 20438704099 [place] Kevan Perry MD COLESTID 1 GM TABS Two 11-24-2011 [facility] tablets by mouth twice Group (44 691) daily COLESTIPOL HCL [id number] Johan Perry MD COLESTID 1 GM TABS Two 11-24-2011 Vicki Kirkpatrick RN [facility] tablets by mouth twice Group (44 301) daily COLESTIPOL HCL [id number] Johan Perry MD COLESTID 1 GM TABS One 11-24-2011 Riana Francis RN [facility] by mouth twice Group (446 91) daily COLESTIPOL HCL [id number] Johan Perry MD COLESTID 1 GM TABS One 11-24-2011 - [facility] by mouth twice 06-19-2016 Group (446 91) daily COLESTIPOL HCL 01689267179 Johan Perry MD COLESTID 1 GM TABS One 11-24-2011 Melissa Marks RN [facility] by mouth twice Group (446 91) daily COLESTIPOL HCL [id number] Johan Perry MD COLESTID 1 GM TABS One 11-24-2011 Riana Francis RN [facility] by mouth twice Group (446 91) daily COLESTIPOL HCL 08332270459 Johan Perry MD COLESTID 1 GM TABS One 11-24-2011 - [facility] by mouth twice 06-19-2016 Group (446 91) daily COLESTIPOL HCL 65639501505 Johan Perry MD COLESTID 1 GM TABS Two 11-24-2011 Melissa Marks RN [facility] tablets by mouth twice Group (44 851) daily COLESTIPOL HCL [id number] Johan Perry MD COLESTID 1 GM TABS Two 11-24-2011 Vicki Kirkpatrick RN [facility] tablets by mouth twice Group (44 651) daily COLESTIPOL HCL [id number] Johan Perry MD COLESTID 1 GM TABS One 11-24-2011 Riana Francis RN [facility] by mouth twice Group (447 91) daily COLESTIPOL HCL 66811125082 Johan Kevan Perry MD COLESTID 1 GM TABS One 11-24-2011 Melissa Jesica Selina RN [facility] by mouth twice Group (446 91) daily COLESTIPOL HCL [id number] Johan Kevan Perry MD COLESTID 1 GM TABS One 11-24-2011 - [facility] by mouth twice 06-19-2016 Group (446 91) daily COLESTIPOL HCL [id number] Johan Kevan Perry MD COLESTID 1 GM TABS Two 11-24-2011 Melissa Marks RN [facility] tablets by mouth twice Group (44 691) daily COLESTIPOL HCL [id number] [place] Kevan Perry MD COLESTID 1 GM TABS Two 11-24-2011 Vicki Kirkpatrick RN [facility] tablets by mouth twice Group (44 691) daily COLESTIPOL HCL [id number] Johan Perry MD COLESTID 1 GM TABS Two 11-24-2011 Melissa Marks RN [facility] by mouth twice Group (44 691) daily COLESTIPOL HCL 53404878703 Johan Perry MD COLESTID 1 GM TABS Two 11-24-2011 Vicki Kirkpatrick RN [facility] tablets by mouth twice Group (44 691) daily COLESTIPOL HCL [id number] [place] Kevan Perry MD COLESTID 1 GM TABS One 11-24-2011 - [facility] by mouth twice 06-19-2016 Group (446 91) daily COLESTIPOL HCL 76858035598 Johan Kevan Perry MD COLESTID 1 GM TABS One 11-24-2011 Melissa Marks RN [facility] tablet by mouth twice Group (446 91) daily COLESTIPOL HCL 84362410566 [place] Kevan Perry MD COLESTID 1 GM TABS One 11-24-2011 Riana Francis RN [facility] by mouth twice Group (446 91) daily COLESTIPOL HCL [id number] [place] Kevan Perry MD COLESTID 1 GM TABS Two 11-24-2011 Vicki Kirkpatrick RN [facility] tablets by mouth twice Group (44 1) daily COLESTIPOL HCL [id number] Johan S MD [place] COLESTID 1 GM TABS One 11-24-2011 Melissa Marks RN [facility] by mouth twice Group (443 91) daily COLESTIPOL HCL [id number] Johan Kevan Perry MD COLESTID 1 GM TABS Two 11-24-2011 Melissa Marks RN [facility] tablets by mouth twice Group (44 941) daily COLESTIPOL HCL [id number] Johan Perry MD COLESTID 1 GM TABS One 11-24-2011 Riana Francis RN [facility] by mouth twice Group (449 91) daily COLESTIPOL HCL [id number] MD ENRICO RogersSTID 1 GM TABS One 11-24-2011 - [facility] by mouth twice 06-19-2016 Group (446 91) daily COLESTIPOL HCL [id number] Johan Perry MD COLESTID 1 GM TABS One 11-24-2011 Riana Francis RN [facility] by mouth twice Group (446 91) daily COLESTIPOL HCL 18117662442 [place] S MD [place] COLESTID 1 GM TABS Two 11-24-2011 Vicki Kirkpatrick RN [facility] tablets by mouth twice Group (44 821) daily COLESTIPOL HCL [id number] [place] Kevan Perry MD COLESTID 1 GM TABS One 11-24-2011 Melissa Marks RN [facility] by mouth twice Group (441 91) daily COLESTIPOL HCL [id number] Johan Kevan Perry MD COLESTID 1 GM TABS One 11-24-2011 - [facility] by mouth twice 06-19-2016 Group (446 91) daily COLESTIPOL HCL [id number] [place] Kevan Perry MD COLESTID 1 GM TABS Two 11-24-2011 Melissa Marks RN [facility] tablets by mouth twice Group (44 691) daily COLESTIPOL HCL [id number] Johan Kevan Perry MD COLESTID 1 GM TABS One 11-24-2011 Melissa Jesica Selina RN [facility] by mouth twice Group (446 91) daily COLESTIPOL HCL [id number] [place] Kevan Perry MD COLESTID 1 GM TABS Two 11-24-2011 Vicki Kirkpatrick RN [facility] tablets by mouth twice Group (44 691) daily COLESTIPOL HCL [id number] [place] Perry MD COLESTID 1 GM TABS One 11-24-2011 Riana Mathew Penny RN [facility] by mouth twice Group (446 91) daily COLESTIPOL HCL [id number] Johan Perry MD COLESTID 1 GM TABS Two 11-24-2011 Melissa Marks RN [facility] by mouth twice Group (44 411) daily COLESTIPOL HCL 59530127320 Johan Perry MD COLESTID 1 GM TABS One 11-24-2011 - [facility] by mouth twice 06-19-2016 Group (446 91) daily COLESTIPOL HCL [id number] Johan Perry MD COLESTID 1 GM TABS Two 11-24-2011 Melissa Marks RN [facility] by mouth twice Group (44 751) daily COLESTIPOL HCL [id number] JohanMD ENRICO SuhSTID 1 GM TABS One 11-24-2011 - [facility] by mouth twice 06-19-2016 Group (446 91) daily COLESTIPOL HCL [id number] Johan Perry MD COLESTID 1 GM TABS One 11-24-2011 Riana Francis RN [facility] by mouth twice Group (446 91) daily COLESTIPOL HCL 10861962625 Johan Perry MD COLESTID 1 GM TABS Two 11-24-2011 Vicki Kirkpatrick RN [facility] tablets by mouth twice Group (44 691) daily COLESTIPOL HCL 32797341520 Johan Perry MD COLESTID 1 GM TABS One 11-24-2011 Melissa Marks RN [facility] by mouth twice Group (446 91) daily COLESTIPOL HCL [id number] Johan Perry MD COLESTID 1 GM TABS Two 11-24-2011 Vicki Kirkpatrick RN [facility] tablets by mouth twice Group (44 691) daily COLESTIPOL HCL [id number] Johan Perry MD COLESTID 1 GM TABS Two 11-24-2011 Melissa Marks RN [facility] by mouth twice Group (44 691) daily COLESTIPOL HCL [id number] Johan Perry MD COLESTID 1 GM TABS One 11-24-2011 - [facility] by mouth twice 06-19-2016 Group (446 91) daily COLESTIPOL HCL [id number] Johan Perry MD COLESTID 1 GM TABS One 11-24-2011 Melissa Marks RN [facility] tablet by mouth twice Group (446 91) daily COLESTIPOL HCL [id number] Johan Perry MD COLESTID 1 GM TABS One 11-24-2011 Riana Francis RN [facility] by mouth twice Group (446 91) daily COLESTIPOL HCL [id number] Johan Perry MD Comment: Take 1 g by mouth twice ajay y. ezetimibe ZETIA 10 MG TABS One 07-16-2010 - [facility] by mouth daily 08-26-2011 Group (67011) EZETIMIBE [id number] Rahul Anaya MD fenofibrate fenofibrate 08-10-2015 Morgan [facility] nanocrystallized (TRICOR) Gr oup (57185) 145 mg tablet Take 1 tablet by mouth once daily. 0 08/28/2015 Active Comment: Take 1 tablet by mouth once daily. flash glucose sensor flash glucose sensor 08-09-2018 [facility] (FREESTYLE ANITRA 14 (FREESTYLE ANITRA 14 ( 45353) DAY SENSOR) kit DAY SENSOR) kit Indications: Type 2 diabetes mellitus with st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, with long-term current use of insulin (HCC) 1 Each four times daily. 1 Kit 08/09/2018 Active flash glucose sensor (FREESTYLE 08-09-2018 [facility] (36095) ANITRA 14 DAY SENSOR) kit Indications: Type 2 diabetes mellitus with st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, with long-term current use of insulin (HCC) 1 Each four times daily. 1 Kit 08/09/2018 Active flash glucose sensor (FREESTYLE 08-09-2018 [facility] (93131) ANITRA 14 DAY SENSOR) kit Indications: Type 2 diabetes mellitus with st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, with long-term current use of insulin (HCC) 1 Each four times daily. 1 Kit 08/09/2018 Active flash glucose sensor (FREESTYLE 08-09-2018 [facility] (47984) ANITRA 14 DAY SENSOR) kit Indications: Type 2 diabetes mellitus with st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, with long-term current use of insulin (HCC) 1 Each four times daily. 1 Kit 08/09/2018 Active flash glucose sensor (FREESTYLE 08-09-2018 [facility] (65104) ANITRA 14 DAY SENSOR) kit Indications: Type 2 diabetes mellitus with st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, with long-term current use of insulin (HCC) 1 Each four times daily. 1 Kit 08/09/2018 Active flash glucose sensor (FREESTYLE 05-13-2019 [facility] ([id number]) ANITRA 14 DAY SENSOR) kit Indications: Type 2 diabetes mellitus with st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, with long-term current use of insulin (HCC) 1 Each four times daily. 1 Kit 08/09/2018 Active flash glucose sensor (FREESTYLE 08-09-2018 [facility] A [facility] ([id number]) ANITRA 14 DAY SENSOR) kit Indications: Type 2 diabetes mellitus with st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, with long-term current use of insulin (HCC) 1 Each four times daily. 1 Kit 08/09/2018 Active flash glucose sensor (FREESTYLE 08-09-2018 [facility] ([id number]) ANITRA 14 DAY SENSOR) kit Indications: Type 2 diabetes mellitus with st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, with long-term current use of insulin (HCC) 1 Each four times daily. 1 Kit 08/09/2018 Active flash glucose sensor (FREESTYLE 08-09-2018 [facility] (71095) ANITRA 14 DAY SENSOR) kit Indications: Type 2 diabetes mellitus with st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, with long-term current use of insulin (HCC) 1 Each four times daily. 1 Kit 08/09/2018 Active flash glucose sensor (FREESTYLE 08-09-2018 [facility] ([id number]) ANITRA 14 DAY SENSOR) kit Indications: Type 2 diabetes mellitus with st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, with long-term current use of insulin (HCC) 1 Each four times daily. 1 Kit 08/09/2018 Active flash glucose sensor (FREESTYLE 08-09-2018 [facility] A [facility] (25757) ANITRA 14 DAY SENSOR) kit Indications: Type 2 diabetes mellitus with st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, with long-term current use of insulin (HCC) 1 Each four times daily. 1 Kit 08/09/2018 Active flash glucose sensor (FREESTYLE 08-09-2018 [facility] A [facility] (28760) ANITRA 14 DAY SENSOR) kit Indications: Type 2 diabetes mellitus with st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, with long-term current use of insulin (HCC) 1 Each four times daily. 1 Kit 08/09/2018 Active flash glucose sensor (FREESTYLE 08-09-2018 [facility] (55088) ANITRA 14 DAY SENSOR) kit Indications: Type 2 diabetes mellitus with st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, with long-term current use of insulin (HCC) 1 Each four times daily. 1 Kit 08/09/2018 Active flash glucose sensor (FREESTYLE 08-09-2018 Morgan Mooney [facility] (06667) ANITRA 14 DAY SENSOR) kit Indications: Type 2 diabetes mellitus with st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, with long-term current use of insulin (HCC) 1 Each four times daily. 1 Kit 08/09/2018 Active flash glucose sensor (FREESTYLE 08-09-2018 [facility] (85196) ANITRA 14 DAY SENSOR) kit Indications: Type 2 diabetes mellitus with st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, with long-term current use of insulin ([facility]) 1 Each four times daily. 1 Kit 08/09/2018 Active flash glucose sensor (FREESTYLE 08-09-2018 [facility] (14775) ANITRA 14 DAY SENSOR) kit Indications: Type 2 diabetes mellitus with st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, with long-term current use of insulin ([facility]) 1 Each four times daily. 1 Kit 08/09/2018 Active flash glucose sensor (FREESTYLE 08-09-2018 [facility] (76183) ANITRA 14 DAY SENSOR) kit Indications: Type 2 diabetes mellitus with st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, with long-term current use of insulin ([facility]) 1 Each four times daily. 1 Kit 08/09/2018 Active Comment: 1 Each four times daily. furosemide furosemide (LASIX) 40 mg 04-19-2019 [facility] tablet Indications: Acute (4 4691) on chronic systolic congestive heart failure (HCC) Take 1 tablet by mouth twice daily. 60 tablet 04/19/2019 Active LASIX 40 MG TABS One tablet by 03-14-2014 [facility] (28231) mouth twice daily FUROSEMIDE [id number] Vicki Kirkpatrick RN LASIX 40 MG TABS One tablet by 03-14-2014 [facility] (77829) mouth daily FUROSEMIDE [id number] Johan Perry MD LASIX 40 MG TABS One tablet by 03-08-2013 - 09-06-2013 [facility] (99808) mouth daily FUROSEMIDE [id number] Johan Perry MD Comment: Take 1 tablet by mouth twice daily. gabapentin gabapentin (NEURONTIN) 10-27-2019 - Morgan Mooney [facility] 300 mg capsule 02-05-2020 Group (57888) Indications: Type 2 diabetes mellitus with diabetic neuropathy, with long-term current use of insulin (HCC) Take 3 capsules by mouth three times daily for 30 days. 270 capsule 0 01/06/2020 02/05/2020 Active GABAPENTIN 100 MG CAPS 6 tablets by mouth 09-06-2013 [facility] (70573) three times a day GABAPENTIN [id number] Johan Perry MD GABAPENTIN 100 MG CAPS One tablet by mouth 09-06-2013 [facility] (26312) three times daily GABAPENTIN [id number] Melany Khanna PA-C GABAPENTIN 100 MG CAPS One tablet by mouth 09-06-2013 [facility] (42835) daily GABAPENTIN [id number] Melissa Marks RN GABAPENTIN 600 MG TABS One tablet by mouth 09-06-2013 [facility] (74128) three times daily GABAPENTIN [id number] Johan Perry MD Comment: Take 3 capsules by mouth thr ee times daily for 30 days. hydroCHLOROthiazide HYDROCHLOROTHIAZIDE 12.5 MG 10-09-2011 - [facility] TABS One tablet by mouth 12-11-2014 [facility] (70191) daily- STOP replaced by Lasix HYDROCHLOROTHIAZIDE [id number] Melissa Marks RN HYDROCHLOROTHIAZIDE 25 MG TABS One 09-13-2010 - 06-10-2011 [facility] tablet by mouth daily (18249) HYDROCHLOROTHIAZIDE [id number] Tracee Beard insulin glargine insulin glargine 01-09-2020 [facility] (BASAGLAR KWIKPEN U-100 Grou p (85055) INSULIN) 100 unit/mL (3 mL) Inject 36 Units subcutaneously every 12 hours. 0 01/09/2020 Active LANTUS 100 UNIT/ML SOLN take as 08-26-2011 [facility] (22392) directed INSULIN GLARGINE [id number] Rahul Anaya MD LANTUS 100 UNIT/ML SOLN take as 08-26-2011 [facility] (72969) directed INSULIN GLARGINE [id number] Rahul Anaya MD LANTUS 100 UNIT/ML SOLN take as 08-26-2011 [facility] (00829) directed INSULIN GLARGINE [id number] Rahul Anaya MD LANTUS 100 UNIT/ML SOLN take as 08-26-2011 [facility] (86490) directed INSULIN GLARGINE [id number] Rahul Anaya MD LANTUS 100 UNIT/ML SOLN take as 08-26-2011 [facility] (04914) directed INSULIN GLARGINE [id number] Rahul Anaya MD LANTUS 100 UNIT/ML SOLN take as 08-26-2011 [facility] (99445) directed INSULIN GLARGINE [id number] Rahul Anaya MD LANTUS 100 UNIT/ML SOLN take as 08-26-2011 [facility] (33726) directed INSULIN GLARGINE [id number] Rahul Anaya MD LANTUS 100 UNIT/ML SOLN take as 08-26-2011 [facility] (08661) directed INSULIN GLARGINE [id number] Rahul Anaya MD LANTUS 100 UNIT/ML SOLN take as 08-26-2011 [facility] (22765) directed INSULIN GLARGINE [id number] Rahul Anaya MD LANTUS 100 UNIT/ML SOLN take as 08-26-2011 [facility] (77388) directed INSULIN GLARGINE [id number] Rahul Anaya MD LANTUS 100 UNIT/ML SOLN take as 08-26-2011 [facility] (52807) directed INSULIN GLARGINE [id number] Rahul Anaya MD insulin glargine (BASAGLAR KWIKPEN [facility] (78599) U-100 INSULIN) 100 unit/mL (3 mL) Inject 34 Units subcutaneously every 12 hours. 0 Active insulin glargine (BASAGLAR KWIKPEN [facility] (78557) U-100 INSULIN) 100 unit/mL (3 mL) Inject 30 Units subcutaneously every 12 hours. 0 Active Comment: Inject 30 Units subcutaneous ly every 12 hours. Inject 34 Units subcutaneous ly every 12 hours. Inject 36 Units subcutaneous ly every 12 hours. insulin lispro insulin lispro (HUMALOG 01-09-2020 [facility] KWIKPEN INSULIN) 100 (56040) unit/mL Inject 21 Units subcutaneously three times daily before meals. Plus sliding scale as directed ( 1 unit for every 50 mg/dL above 150 mg/dL) 0 01/09/2020 Active HUMALOG 100 UNIT/ML SOLN 12-11-[address] [facility] units sq tid before meals (07848 ) INSULIN LISPRO (HUMAN) [id number] Melissa Marks RN HUMALOG 100 UNIT/ML SOLN 12-11-[address] [facility] units sq before meals (05873) INSULIN LISPRO (HUMAN) [id number] Johan Perry MD HUMALOG 100 UNIT/ML SOLN 12-11-[address] [facility] units sq before meals (59044) INSULIN LISPRO (HUMAN) [id number] Johan Perry MD HUMALOG 100 UNIT/ML SOLN 12-11-[address] [facility] units sq before meals (59671) INSULIN LISPRO (HUMAN) [id number] Johan Perry MD HUMALOG 100 UNIT/ML SOLN 12-11-[address] [facility] units sq before meals (92470) INSULIN LISPRO (HUMAN) [id number] Johan Perry MD HUMALOG 100 UNIT/ML SOLN 12-11-[address] [facility] units sq before meals (86681) INSULIN LISPRO (HUMAN) [id number] Johan Perry MD HUMALOG 100 UNIT/ML SOLN 12-11-[address] [facility] units sq before meals (51903) INSULIN LISPRO (HUMAN) [id number] Johan Perry MD HUMALOG 100 UNIT/ML SOLN 12-11-[address] [facility] units sq before meals (79548) INSULIN LISPRO (HUMAN) [id number] Johan Perry MD HUMALOG 100 UNIT/ML SOLN 12-11-[address] [facility] units sq before meals (08000) INSULIN LISPRO (HUMAN) [id number] Johan Perry MD HUMALOG 100 UNIT/ML SOLN 12-11-[address] [facility] units sq before meals (18147) INSULIN LISPRO (HUMAN) [id number] Johan Perry MD HUMALOG 100 UNIT/ML SOLN 12-11-[address] [facility] units sq before meals (84889) INSULIN LISPRO (HUMAN) [id number] Johan Perry MD HUMALOG 100 UNIT/ML SOLN 12-11-[address] [facility] units sq before meals (82583) INSULIN LISPRO (HUMAN) [id number] Johan Perry MD HUMALOG 100 UNIT/ML SOLN 12-11-[address] [facility] units sq before meals (11112) INSULIN LISPRO (HUMAN) [id number] Johan Perry MD HUMALOG 100 UNIT/ML SOLN 12-11-[address] [facility] units sq before meals (54579) INSULIN LISPRO (HUMAN) [id number] Johan Perry MD HUMALOG 100 UNIT/ML SOLN 12-11-[address] [facility] units sq before meals (83537) INSULIN LISPRO (HUMAN) [id number] Johan Perry MD HUMALOG 100 UNIT/ML SOLN 12-11-[address] [facility] units sq before meals (89945) INSULIN LISPRO (HUMAN) [id number] Johan Perry MD HUMALOG 100 UNIT/ML SOLN 12-11-[address] [facility] units sq before meals (57442) INSULIN LISPRO (HUMAN) [id number] Johan Perry MD HUMALOG 100 UNIT/ML SOLN 12-11-[address] [facility] units sq before meals (23929) INSULIN LISPRO (HUMAN) [id number] Johan Perry MD HUMALOG 100 UNIT/ML SOLN 12-11-[address] [facility] units sq before meals (36543) INSULIN LISPRO (HUMAN) [id number] Johan Perry MD HUMALOG 100 UNIT/ML SOLN 12-11-[address] [facility] units sq before meals (95818) INSULIN LISPRO (HUMAN) [id number] Johan Perry MD HUMALOG SOLN Take as 07-16-2010 - 08-26-2011 [facility] directed (81526) INSULIN LISPRO (HUMAN) SOLN [id number] Rahul Anaya MD HUMALOG SOLN Take as 07-16-2010 [facility] directed INSULIN (446 91) LISPRO (HUMAN) SOLN [id number] Tracee Beard HUMALOG SOLN Take as 07-16-2010 [facility] directed INSULIN (446 91) LISPRO (HUMAN) SOLN [id number] Tracee Beard HUMALOG SOLN Take as 07-16-2010 - 08-26-2011 [facility] directed (71168) INSULIN LISPRO (HUMAN) SOLN [id number] Rahul Anaya MD HUMALOG SOLN Take as 07-16-2010 - 08-26-2011 [facility] directed (36436) INSULIN LISPRO (HUMAN) SOLN [id number] Rahul Anaya MD HUMALOG SOLN Take as 07-16-2010 [facility] directed INSULIN (446 91) LISPRO (HUMAN) SOLN [id number] Tracee Beard HUMALOG SOLN Take as 07-16-2010 [facility] directed INSULIN (446 91) LISPRO (HUMAN) SOLN [id number] Tracee Beard HUMALOG SOLN Take as 07-16-2010 - 08-26-2011 [facility] directed (52988) INSULIN LISPRO (HUMAN) SOLN [id number] Rahul Anaya MD HUMALOG SOLN Take as 07-16-2010 - 08-26-[facility] (24732) INSULIN LISPRO (HUMAN) SOLN [id number] Rahul Anaya MD HUMALOG SOLN Take as 07-16-2010 [facility] directed INSULIN (446 91) LISPRO (HUMAN) SOLN [id number] Tracee Beard HUMALOG SOLN Take as 07-16-2010 - 08-26-2011 [facility] directed (78652) INSULIN LISPRO (HUMAN) SOLN [id number] Rahul Anaya MD HUMALOG SOLN Take as 07-16-2010 [facility] directed INSULIN (446 91) LISPRO (HUMAN) SOLN [id number] Tracee Beard HUMALOG SOLN Take as 07-16-2010 [facility] directed INSULIN (446 91) LISPRO (HUMAN) SOLN [id number] Tracee Beard HUMALOG SOLN Take as 07-16-2010 - 08-26-2011 [facility] directed (28465) INSULIN LISPRO (HUMAN) SOLN [id number] Rahul Anaya MD HUMALOG SOLN Take as 07-16-2010 [facility] directed INSULIN (446 91) LISPRO (HUMAN) SOLN [id number] Tracee Beard HUMALOG SOLN Take as 07-16-2010 - 08-26-2011 [facility] directed (76093) INSULIN LISPRO (HUMAN) SOLN [id number] Rahul Anaya MD HUMALOG SOLN Take as 07-16-2010 - 08-26-2011 [facility] directed (42423) INSULIN LISPRO (HUMAN) SOLN [id number] Rahul Anaya MD HUMALOG SOLN Take as 07-16-2010 [facility] directed INSULIN (446 91) LISPRO (HUMAN) SOLN [id number] Tracee Beard HUMALOG SOLN Take as 07-16-2010 [facility] directed INSULIN (446 91) LISPRO (HUMAN) SOLN [id number] Tracee Beard HUMALOG SOLN Take as 07-16-2010 - 08-26-2011 [facility] directed (20149) INSULIN LISPRO (HUMAN) SOLN [id number] Rahul Anaya MD HUMALOG SOLN Take as 07-16-2010 - 08-26-2011 [facility] directed (08115) INSULIN LISPRO (HUMAN) SOLN [id number] Rahul Anaya MD HUMALOG SOLN Take as 07-16-2010 [facility] directed INSULIN (446 91) LISPRO (HUMAN) SOLN [id number] Tracee Roblesward HUMALOG SOLN Take as 07-16-2010 - 08-26-2011 [facility] directed (48009) INSULIN LISPRO (HUMAN) SOLN [id number] Rahul Anaya MD HUMALOG SOLN Take as 07-16-2010 [facility] directed INSULIN (446 91) LISPRO (HUMAN) SOLN [id number] Tracee Beard HUMALOG SOLN Take as 07-16-2010 [facility] directed INSULIN (446 91) LISPRO (HUMAN) SOLN [id number] Tracee Beard HUMALOG SOLN Take as 07-16-2010 - 08-26-2011 [facility] directed (50143) INSULIN LISPRO (HUMAN) SOLN [id number] Rahul Anaya MD HUMALOG SOLN [facility] (446 91) LISPRO (HUMAN) SOLN [id number] Tracee Beard HUMALOG SOLN Take as 07-16-2010 - 08-26-2011 [facility] directed (03403) INSULIN LISPRO (HUMAN) SOLN [id number] Rahul Anaya MD HUMALOG SOLN Take as 07-16-[facility] INSULIN (446 91) LISPRO (HUMAN) SOLN [id number] Tracee Beard HUMALOG SOLN Take as 07-16-2010 - 08-26-2011 [facility] directed (06339) INSULIN LISPRO (HUMAN) SOLN [id number] Rahul Anaya MD HUMALOG SOLN Take as 07-16-2010 - 08-26-2011 [facility] directed (77288) INSULIN LISPRO (HUMAN) SOLN [id number] Rahul Anaya MD HUMALOG SOLN Take as 07-16-[facility] directed INSULIN (446 91) LISPRO (HUMAN) SOLN [id number] Tracee Beard insulin lispro (HUMALOG [facility] KWIKPEN INSULIN) 100 unit/mL (44 69) Inject 17 Units subcutaneously three times daily [...] [facility] UNIT/ML SOPN as directed (44 019) INSULIN GLULISINE [id number] iVcki Kirkpatrick RN APIDRA SOLOSTAR 100 UNIT/ML SOPN 12-11-2014 [facility] (51744) as directed INSULIN GLULISINE [id number] Vicki Kirkpatrick RN APIDRA SOLOSTAR 100 UNIT/ML SOPN 12-11-2014 [facility] (78727) as directed INSULIN GLULISINE [id number] Vicki Kirkpatrick RN APIDRA SOLOSTAR 100 UNIT/ML SOPN 12-11-2014 [facility] (71536) as directed INSULIN GLULISINE [id number] Vicki Kirkpatrick RN APIDRA SOLOSTAR 100 UNIT/ML SOPN 12-11-2014 [facility] (80696) as directed INSULIN GLULISINE [id number] Vicki Kirkpatrick RN APIDRA SOLOSTAR 100 UNIT/ML SOPN 12-11-2014 [facility] (70354) as directed INSULIN GLULISINE [id number] Vicki Kirkpatrick RN APIDRA SOLOSTAR 100 UNIT/ML SOPN 12-11-2014 [facility] (12441) as directed INSULIN GLULISINE [id number] Vicki Kirkpatrick RN APIDRA SOLOSTAR 100 UNIT/ML SOPN 12-11-2014 [facility] (14907) as directed INSULIN GLULISINE [id number] Vicki Kirkpatrick RN APIDRA SOLOSTAR 100 UNIT/ML SOPN 12-11-2014 [facility] (44651) as directed INSULIN GLULISINE [id number] Vicki Kirkpatrick RN APIDRA SOLOSTAR 100 UNIT/ML SOPN 12-11-2014 [facility] (73704) as directed INSULIN GLULISINE [id number] Vicki Kirkpatrick RN APIDRA SOLOSTAR 100 UNIT/ML SOPN 12-11-2014 [facility] (10368) as directed INSULIN GLULISINE [id number] Vicki Kirkpatrick RN APIDRA SOLN take as directed 08-26-2011 [facility] (84641) INSULIN GLULISINE SOLN [id number] Rahul Anaya MD APIDRJesica SOLN take as directed 08-26-2011 - 12-27-2014 [facility] (40188) INSULIN GLULISINE SOLN [id number] MD CRYSTAL RogersDRJesica SOLN take as directed 08-26-2011 [facility] (27788) INSULIN GLULISINE SOLN [id number] Rahul ROJASDRJesica SOLN take as directed 08-26-2011 - 12-27-2014 [facility] (55126) INSULIN GLULISINE SOLN [id number] MD RADHA Rogers SOLN take as directed 08-26-2011 - 12-27-2014 [facility] (34305) INSULIN GLULISINE SOLN [id number] MD RADHA Rogers SOLN take as directed 08-26-2011 [facility] (77984) INSULIN GLULISINE SOLN [id number] Rahul GARCIA SOLN take as directed 08-26-2011 - 12-27-2014 [facility] (92805) INSULIN GLULISINE SOLN [id number] MD RADHA Rogers SOLAshwin take as directed 08-26-2011 [facility] (26746) INSULIN GLULISINE SOLN [id number] Rahul ESCOBEDO take as directed 08-26-2011 [facility] (54594) INSULIN GLULISINE SOLN [id number] Rahul ESCOBEDO take as directed 08-26-2011 - 12-27-2014 [facility] (30906) INSULIN GLULISINE SOLN [id number] MD RADHA Rogers take as directed 08-26-2011 [facility] (13228) INSULIN GLULISINE SOLN [id number] Rahul GARCIA SOLAshwin take as directed 08-26-2011 - 12-27-2014 [facility] (41609) INSULIN GLULISINE SOLN [id number] MD RADHA Rogers take as directed 08-26-2011 - 12-27-2014 [facility] (52254) INSULIN GLULISINE SOLN [id number] MD RADHA Rogers take as directed 08-26-2011 [facility] (40736) INSULIN GLULISINE SOLN [id number] Rahul ESCOBEDO take as directed 08-26-2011 - 12-27-2014 [facility] (35631) INSULIN GLULISINE SOLN [id number] MD RADHA Rogers take as directed 08-26-2011 [facility] (95255) INSULIN GLULISINE SOLN [id number] Rahul ESCOBEDO take as directed 08-26-2011 [facility] (67833) INSULIN GLULISINE SOLN [id number] Rahul GARCIA SOLAshwin take as directed 08-25-2011 - 12-27-2014 [facility] (05712) INSULIN GLULISINE SOLN [id number] MD RADHA Rogers SOLN take as directed 08-26-2011 [facility] (80154) INSULIN GLULISINE SOLN [id number] Rahul GRACIA SOLAshwin take as directed 08-26-2011 - 12-27-2014 [facility] (08893) INSULIN GLULISINE SOLN [id number] MD RADHA Rogers SOLN take as directed 08-26-2011 - 12-27-2014 [facility] (38696) INSULIN GLULISINE SOLN [id number] MD RADHA Rogers SOLN take as directed 08-26-2011 [facility] (31742) INSULIN GLULISINE SOLN [id number] Rahul GARCIA SOLAhswin take as directed 08-26-2011 - 12-27-2014 [facility] (20984) INSULIN GLULISINE SOLN [id number] MD RADHA Rogers SOLAshwin take as directed 08-26-2011 [facility] (07173) INSULIN GLULISINE SOLN [id number] Rahul GARCIA SOLAshwin take as directed 08-26-2011 - 12-27-2014 [facility] (45730) INSULIN GLULISINE SOLN [id number] MD RADHA Rogers SOLN take as directed 08-26-2011 [facility] (69275) INSULIN GLULISINE SOLN [id number] Rahul GARCIA SOLAshwin take as directed 08-26-2011 [facility] (26884) INSULIN GLULISINE SOLN [id number] Rahul GARCIA SOLN take as directed 08-26-2011 - 12-27-2014 [facility] (08423) INSULIN GLULISINE SOLN [id number] MD RADHA Rogers SOLAshwin take as directed 08-26-2011 [facility] (72826) INSULIN GLULISINE SOLN [id number] Rahul GARCIA SOLAshwin take as directed 08-26-2011 - 12-27-2014 [facility] (35161) INSULIN GLULISINE SOLN [id number] MD RADHA Rogers SOLN take as directed 08-26-2011 - 12-27-2014 [facility] (16026) INSULIN GLULISINE SOLN [id number] MD RADHA Rogers SOLsAhwin take as directed 08-26-2011 [facility] (45977) INSULIN GLULISINE SOLN [id number] Rahul Anaya MD insulin, insulin NPH injection 10-13-2019 - Deniz valerio isophane (HumuLIN N,NovoLIN N) 12-12-2019 [facility], 32 units subcutaneous LLC (4 4691) before breakfast and 32 units at bedtime 0 10/13/2019 12/12/2019 Discontinued (Changing Therapy/Dosage Form) HUMULIN N 100 UNIT/ML SUSP take as 08-26-[address] [place] [facility], [facility] directed INSULIN ISOPHANE (45194) HUMAN [id number] Johan Perry MD HUMULIN N 100 UNIT/ML SUSP take as 08-26-[address] [place] [address] [facility] directed INSULIN ISOPHANE (25593) HUMAN [id number] Johan Perry MD Comment: 32 units subcutaneous before breakfast and 32 units at bedtime isosorbide isosorbide mononitrate ER 09-22-2014 [facility] (IMDUR) 30 mg 24 hr tablet ( 25986) Take 60 mg by mouth once daily. 0 06/05/2016 Active ISOSORBIDE MONONITRATE ER 60 MG 09-22-2014 [facility] (61721) [id number] One tablet by mouth daily ISOSORBIDE MONONITRATE [id number] Vicki Kirkpatrick RN ISOSORBIDE MONONITRATE ER 60 MG 09-22-2014 - 02-07-2015 [facility] (50455) [id number] One tablet by mouth twice daily ISOSORBIDE MONONITRATE [id number] Vicki Kirkpatrick RN ISOSORBIDE MONONITRATE ER 60 MG 09-22-2014 [facility] (59630) [id number] One tablet by mouth daily- this was increased from 30 mg ISOSORBIDE MONONITRATE [id number] RAUL TimmonsC Comment: Take 60 mg by mouth once rustam ly. isosorbide ISORDIL TITRADOSE 06-27-2011 - Rahul Ludwig art dinitrate TABS 20mg, One 08-26-2011 [facility] (4469 1) tablet by mouth three times daily ISOSORBIDE DINITRATE TABS [id number] Rahul Anaya MD ISORDIL TITRADOSE TABS 20mg, One 06-26-2011 - 08-26-2011 [facility] (04455) tablet by mouth three times daily ISOSORBIDE DINITRATE TABS [id number] Rahul Anaya MD lansoprazole PREVACID 30 MG CPDR As 07-16-2010 - 06-09-2011 [facility] needed (42564) LANSOPRAZOLE [id number] Rahul Anaya MD PREVACID 30 MG CPDR As needed 07-16-2010 - 06-10-2011 [facility] (15148) LANSOPRAZOLE [id number] Tracee Beard latanoprost latanoprost (XALATAN) 0.005 % [facility] Provide r [facility] (42748) ophthalmic solution Use 1 Drop in both eyes three times daily. 0 Active Comment: Use 1 Drop in both eyes thre e times daily. lisinopril lisinopril (ZESTRIL, 07-19-2019 Deniz Garsia [facility] PRINIVIL) 20 mg tablet (4469 1) Take 1 tablet by mouth once daily. 90 tablet 1 07/19/2019 Active LISINOPRIL 40 MG TABS One 06-10-2011 Melissa Marks RN [facility] tablet by mouth daily (07789) LISINOPRIL [id number] Johan Perry MD LISINOPRIL 20 MG TABS 06-10-2011 [facility] art Group LISINOPRIL (84701) [id number] Johan Perry MD LISINOPRIL 20 MG TABS One 06-10-2011 Melany Khanna [facility] tablet by mouth twice daily PA-C (446 91) LISINOPRIL [id number] Melany Khanna, PA-C Comment: Take 1 tablet by mouth once daily. meclizine MECLIZINE HCL 12.5 MG 12-16-2010 - [facility] TABS One tablet by 07-03-2015 Group (44 691) mouth three times daily MECLIZINE HCL [id number] Melissa Marks RN metFORMIN METFORMIN HCL 500 MG 09-27-2014 [facility]S One tablet by Group (44 691) mouth twice daily METFORMIN HCL [id number] Melany Khanna, PA-C metOLazone METOLAZONE 2.5 MG 08-20-2016 - [facility] TABS One tablet by 09-04-2016 RN Group ([phone]) mouth three times a week. Take 30 minutes prior to morning lasix dose METOLAZONE [id number] Johan Perry MD metoprolol TOPROL XL 100 MG 12-15-2011 Melissa Marks RN [facility] [id number] One tablet Group ( 36215) by mouth daily METOPROLOL SUCCINATE [id number] Johan Perry MD TOPROL XL 100 MG 12-15-2011 - [facility] [id number] One tablet by 12-11-2014 Group (4 [id number]) mouth daily- STOP replaced by coreg METOPROLOL SUCCINATE [id number] Melany Khanna PA-C TOPROL XL 100 MG 12-15-2011 Melissa Marks RN [facility] [id number] One tablet by Group (4 4691) mouth daily METOPROLOL SUCCINATE [id number] Johan Perry MD TOPROL XL 100 MG 12-15-2011 - [facility] [id number] One tablet by 12-11-2014 Group (4 [id number]) mouth daily- STOP replaced by coreg METOPROLOL SUCCINATE [id number] Melissa Marks RN TOPROL XL 100 MG 12-15-2011 [facility] [id number] One tablet by Group (4 4691) mouth daily- STOP replaced by coreg METOPROLOL SUCCINATE [id number] Melany Khanna PA-C TOPROL XL 100 MG 12-15-2011 Melissa Marks RN [facility] [id number] One tablet by Group (4 4691) mouth daily METOPROLOL SUCCINATE [id number] Johan Perry MD TOPROL XL 100 MG 12-15-2011 [facility] [id number] One tablet by Group (4 4691) mouth daily- STOP replaced by coreg METOPROLOL SUCCINATE 39096479619 Melany Khanna PA-C TOPROL XL 100 MG 12-15-2011 - [facility] [id number]-[id number] One tablet by 12-11-2014 Group (4 4691) mouth daily- STOP replaced by coreg METOPROLOL SUCCINATE 24062891584 Melissathi Marks RN TOPROL XL 100 MG 12-15-2011 - [facility] [id number] One tablet by 12-11-2014 Group (4 4691) mouth daily- STOP replaced by coreg METOPROLOL SUCCINATE [id number] Melissathi Marks RN TOPROL XL 100 MG 12-15-2011 Melissa A Selina RN [facility] [id number] One tablet by Group (4 4691) mouth daily METOPROLOL SUCCINATE [id number] Johan Perry MD TOPROL XL 100 MG 12-15-2011 [facility] [id number] One tablet by Group (4 4691) mouth daily- STOP replaced by coreg METOPROLOL SUCCINATE [id number] Melany Khanna PA-C TOPROL XL 100 MG 12-15-2011 - [facility] [id number] One tablet by 12-11-2014 Group (4 4691) mouth daily- STOP replaced by coreg METOPROLOL SUCCINATE [id number] Melissa A Selina RN TOPROL XL 100 MG 12-15-2011 Melissa Mooney Selina RN [facility] [id number] One tablet by Group (4 4691) mouth daily METOPROLOL SUCCINATE 72160548036 Johan Perry MD TOPROL XL 100 MG 12-15-2011 [facility] [id number] One tablet by Group (4 4691) mouth daily- STOP replaced by coreg METOPROLOL SUCCINATE 50348139260 Melany Khanna PA-C TOPROL XL 100 MG 12-15-2011 - [facility] [id number] One tablet by 12-11-2014 Group (4 4691) mouth daily- STOP replaced by coreg METOPROLOL SUCCINATE [id number] Melissa A Selina RN TOPROL XL 100 MG 12-15-2011 [facility] [id number]-FAV One tablet by Group (4 4691) mouth daily- STOP replaced by coreg METOPROLOL SUCCINATE 35641446896 Melany Khanna PA-C TOPROL XL 100 MG 12-15-2011 Melissa Mooney Selina ORTIZ [facility] [id number]-[id number] One tablet by Group (4 4691) mouth daily METOPROLOL SUCCINATE 65448941113 Johan Perry MD TOPROL XL 100 MG 12-15-2011 Melissa Mooney Selina ORTIZ [facility] [id number] One tablet by Group (4 4691) mouth daily METOPROLOL SUCCINATE 43358917515 Johan Perry MD TOPROL XL 100 MG 12-15-2011 [facility] [id number]-[id number] One tablet by Group (4 4691) mouth daily- STOP replaced by coreg METOPROLOL SUCCINATE 25667896658 Melany Khanna PA-C TOPROL XL 100 MG 12-15-2011 - [facility] [id number]-[id number] One tablet by 12-11-2014 Group (4 4691) mouth daily- STOP replaced by coreg METOPROLOL SUCCINATE 30774778611 Melissa Mooney Selina ORTIZ TOPROL XL 100 MG 12-15-2011 - [facility] [id number]-CLI One tablet by 12-11-2014 Group (4 4691) mouth daily- STOP replaced by coreg METOPROLOL SUCCINATE [id number] Melissa Mooney Selina RN TOPROL XL 100 MG 12-15-2011 Melissa Jesica Selina ORTIZ [facility] [id number]-UTI One tablet by Group (4 4691) mouth daily METOPROLOL SUCCINATE [id number] Johan Perry MD TOPROL XL 100 MG 12-15-2011 [facility] [id number]-[id number] One tablet by Group (4 4691) mouth daily- STOP replaced by coreg METOPROLOL SUCCINATE 94709044303 Melany Khanna PA-C TOPROL XL 100 MG 12-15-2011 [facility] [id number]-[id number] One tablet by Group (4 4691) mouth daily- STOP replaced by coreg METOPROLOL SUCCINATE 25081155062 Melany Khanna PA-C TOPROL XL 100 MG 12-15-2011 - [facility] [id number]-VNY One tablet by 12-11-2014 Group (4 4691) mouth daily- STOP replaced by coreg METOPROLOL SUCCINATE [id number] Melissa Marks RN TOPROL XL 100 MG 12-15-2011 Melissa Marks RN [facility] [id number]-[id number] One tablet by Group (4 4691) mouth daily METOPROLOL SUCCINATE [id number] Johan Perry MD TOPROL XL 100 MG 12-15-2011 [facility] [id number]-THV One tablet by Group (4 4691) mouth daily- STOP replaced by coreg METOPROLOL SUCCINATE 54900362721 Melany Khanna PA-C TOPROL XL 100 MG 12-15-2011 - [facility] [id number]-[id number] One tablet by 12-11-2014 Group (4 4691) mouth daily- STOP replaced by coreg METOPROLOL SUCCINATE [id number] Melissa Marks RN TOPROL XL 100 MG 12-15-2011 Melissa Marks RN [facility] [id number]-LMN One tablet by Group (4 4691) mouth daily METOPROLOL SUCCINATE [id number] Johan Perry MD TOPROL XL 50 MG 08-26-2011 Rahul Allen [facility] [id number]-[id number] (METOPROLOL Nicomaritza SIMMONS Group ([phone]) SUCCINATE) one tablet by mouth twice a day Rahul Anaya MD TOPROL XL 50 MG 08-26-2011 Rahul Allen [facility] [id number]-[id number] (METOPROLOL Héctor SIMMONS Group ([phone]) SUCCINATE) one tablet by mouth twice a day Rahul Anaya MD TOPROL XL 50 MG 08-26-2011 Rahul lAlen [facility] [id number]-RAZ (METOPROLOL Nicomaritza SIMMONS Group ([phone]) SUCCINATE) one tablet by mouth twice a day Rahul Anaya MD TOPROL XL 50 MG 08-26-2011 Rahul Allen [facility] [id number]-CYX (METOPROLOL Nicomaritza SIMMONS Group ([phone]) SUCCINATE) one tablet by mouth twice a day Rahul Anaya MD TOPROL XL 50 MG 08-26-2011 Rahul Allen [facility] [id number]-[id number] (METOPROLOL Nicolozaaretha SIMMONS Group ([phone]) SUCCINATE) one tablet by mouth twice a day Rahul Anaya MD TOPROL XL 50 MG 08-26-2011 Rahul Allen [facility] [id number]-[id number] (METOPROLOL Nicolozaaretha SIMMONS Group ([phone]) SUCCINATE) one tablet by mouth twice a day Rahul Anaya MD TOPROL XL 50 MG 08-26-2011 Rahul Allen [facility] [id number] (METOPROLOL Nicolozaaretha SIMMONS Group ([phone]) SUCCINATE) one tablet by mouth twice a day Rahul Anaya MD TOPROL XL 50 MG 08-26-2011 Rahul Allen [facility] [id number]-[id number] (METOPROLOL Nicolozaaretha SIMMONS Group ([phone]) SUCCINATE) one tablet by mouth twice a day Rahul Anaya MD TOPROL XL 50 MG 08-26-2011 Rahul Allen [facility] [id number] (METOPROLOL Nicolozaaretha SIMMONS Group ([phone]) SUCCINATE) one tablet by mouth twice a day Rahul Anaya MD TOPROL XL 50 MG 08-26-2011 Rahul Allen [facility] [id number]-[id number] (METOPROLOL Nicolozaaretha SIMMONS Group ([phone]) SUCCINATE) one tablet by mouth twice a day Rahul Anaya MD TOPROL XL 50 MG 08-26-2011 Rahul Allen [facility] [id number]-[id number] (METOPROLOL Nicolozaaretha SIMMONS Group ([phone]) SUCCINATE) one tablet by mouth twice a day Rahul Anaya MD TOPROL XL 50 MG 08-26-2011 Rahul Allen [facility] [id number]-[id number] (METOPROLOL Nicolozakes Group ([phone]) SUCCINATE) one tablet by mouth twice a day Rahul Anaya MD TOPROL XL 50 MG 08-26-2011 Rahul Allen [facility] [id number] (METOPROLOL Nicolozaaretha SIMMONS Group ([phone]) SUCCINATE) one tablet by mouth twice a day Rahul Anaya MD TOPROL XL 50 MG 08-26-2011 Rahul Allen [facility] [id number] (METOPROLOL Nicolopanchito SIMMONS Group ([phone]) SUCCINATE) one tablet by mouth twice a day Rahul Anaya MD TOPROL XL 50 MG 08-26-2011 Rahul Allen [facility] [id number] (METOPROLOL Nicolozaaretha SIMMONS Group ([phone]) SUCCINATE) one tablet by mouth twice a day Rahul Anaya MD TOPROL XL 50 MG 08-26-2011 Rahul Allen [facility] [id number] (METOPROLOL Nicolozaaretha SIMMONS Group ([phone]) SUCCINATE) one tablet by mouth twice a day Rahul Anaya MD TOPROL XL 100 MG 06-10-2011 - [facility] [id number] 07-03-2011 Group (4469 1) METOPROLOL SUCCINATE [id number] Rahul Anaya MD TOPROL XL 100 MG 06-10-2011 - [facility] [id number] 07-03-2011 Group (4469 1) METOPROLOL SUCCINATE [id number] Funmilayo Morales RN TOPROL XL 50 MG 07-16-2010 [facility] [id number] One tablet by Group (4 4691) mouth twice daily METOPROLOL SUCCINATE [id number] Tracee Beard TOPROL XL 50 MG 07-16-2010 [facility] [id number]-DDD One tablet by Group (4 4691) mouth twice daily METOPROLOL SUCCINATE 54462472880 Tracee Cordova Beard TOPROL XL 50 MG 07-16-2010 [facility] [id number]-[id number] One tablet by Group (4 4691) mouth twice daily METOPROLOL SUCCINATE [id number] Tracee Beard TOPROL XL 50 MG 07-16-2010 [facility] [id number]-[id number] One tablet by Group (4 4691) mouth twice daily METOPROLOL SUCCINATE 12123580744 Tracee Cordova Beard TOPROL XL 50 MG 07-16-2010 [facility] [id number]-DVH One tablet by Group (4 4691) mouth twice daily METOPROLOL SUCCINATE 99744601816 Tracee Cordova Beard TOPROL XL 50 MG 07-16-2010 [facility] [id number]-MPM One tablet by Group (4 4691) mouth twice daily METOPROLOL SUCCINATE 53086524893 Tracee Cordova Beard TOPROL XL 50 MG 07-16-2010 [facility] PI35W-JEJ One tablet by Group (4 4691) mouth twice daily METOPROLOL SUCCINATE 25261664779 Tracee Cordova Beard TOPROL XL 50 MG 07-16-2010 [facility] [id number]-MHB One tablet by Group (4 4691) mouth twice daily METOPROLOL SUCCINATE 48530545702 Tracee Cordova Beard TOPROL XL 50 MG 07-16-2010 [facility] [id number]-CCG One tablet by Group (4 4691) mouth twice daily METOPROLOL SUCCINATE 17573928674 Tracee Cordova Beard TOPROL XL 50 MG 07-16-2010 [facility] [id number]-[id number] One tablet by Group (4 4691) mouth twice daily METOPROLOL SUCCINATE 69900825642 Tracee Beard niacin NIACIN ER 1000 MG CR-TABS 09-22-2014 - 11-03-2014 [facility] One tablet by mouth daily (4 4691) NIACIN [id number] Johan Perry MD NIASPAN 1000 MG CR-TABS One 07-16-2010 - [facility] tablet by mouth twice daily 11-25-2012 Grou p (65550) NIACIN (ANTIHYPERLIPIDEMIC) [id number] Johan Perry MD NIASPAN 1000 MG CR-TABS One 07-16-2010 - [facility]iana [facility] tablet by mouth twice daily 11-25-2012 Grou p (34344) NIACIN (ANTIHYPERLIPIDEMIC) 69269517460 Johan Perry MD nitroglycerin NITRO-DUR 0.2 MG/HR 08-26-2011 - Funmilayo Morales RN [facility] PT24 on every morning 11-25-2012 Group (37841) off qhs NITROGLYCERIN [id number] Rahul Anaya MD NITRO-DUR 0.2 MG/HR PT24 08-25-2011 - 11-25-2012 [facility] on every morning off qhs (38823) NITROGLYCERIN [id number] Johan Perry MD NITRO-DUR 0.2 MG/HR PT24 08-26-2011 Funmilayo Morales RN [facility] on every morning off qhs (71779) NITROGLYCERIN [id number] Rahul Anaya MD NITRO-DUR 0.2 MG/HR PT24 08-25-2011 - 11-25-2012 [facility] on every morning off qhs (61169) NITROGLYCERIN [id number] Johan Perry MD NITRO-DUR 0.2 MG/HR PT24 08-26-2011 Funmilayo Morales RN [facility] on every morning off qhs (03805) NITROGLYCERIN [id number] Rahul Anaya MD NITRO-DUR 0.2 MG/HR PT24 08-25-2011 - 11-25-2012 [facility] on every morning off qhs (57329) NITROGLYCERIN [id number] Johan Perry MD NITRO-DUR 0.2 MG/HR PT24 08-26-2011 Funmilayo Morales RN [facility] on every morning off qhs (67781) NITROGLYCERIN [id number] Rahul Anaya MD NITRO-DUR 0.2 MG/HR PT24 08-25-2011 - 11-25-2012 [facility] on every morning off qhs (44763) NITROGLYCERIN [id number] Johan Perry MD NITRO-DUR 0.2 MG/HR PT24 08-26-2011 [facility] on every morning off qhs (21493) NITROGLYCERIN [id number] Rahul Anaya MD NITRO-DUR 0.2 MG/HR PT24 08-25-2011 - 11-25-2012 [facility] on every morning off qhs (65919) NITROGLYCERIN [id number] Johan Perry MD NITRO-DUR 0.2 MG/HR PT24 08-26-2011 [facility] on every morning off qhs (82433) NITROGLYCERIN [id number] Rahul Anaya MD NITRO-DUR 0.2 MG/HR PT24 08-25-2011 - 11-25-2012 [facility] on every morning off qhs (50092) NITROGLYCERIN [id number] Johan Perry MD NITRO-DUR 0.2 MG/HR PT24 08-26-2011 [facility] on every morning off qhs (12296) NITROGLYCERIN [id number] Rahul Anaya MD NITRO-DUR 0.2 MG/HR PT24 08-26-2011 [facility] on every morning off qhs (12630) NITROGLYCERIN [id number] Rahul Anaya MD NITRO-DUR 0.2 MG/HR PT24 08-25-2011 - 11-25-2012 [facility] on every morning off qhs (76132) NITROGLYCERIN [id number] Jhoan Perry MD NITRO-DUR 0.2 MG/HR PT24 08-26-2011 [facility] on every morning off qhs (06948) NITROGLYCERIN [id number] Rahul Anaya MD NITRO-DUR 0.2 MG/HR PT24 08-25-2011 - 11-25-2012 [facility] on every morning off qhs (55380) NITROGLYCERIN [id number] Johan Perry MD NITRO-DUR 0.2 MG/HR PT24 08-25-2011 - 11-25-2012 [facility] on every morning off qhs (83502) NITROGLYCERIN [id number] Johan Perry MD NITRO-DUR 0.2 MG/HR PT24 08-26-2011 Funmilayo Morales RN [facility] on every morning off qhs (16502) NITROGLYCERIN [id number] Rahul Anaya MD NITROGLYCERIN 0.2 MG/HR 12-16-2010 - 06-27-2011 [facility] PT24 Patch, on Q AM, off Q (4469 1) HS NITROGLYCERIN [id number] Rahul Anaya MD NITROSTAT 0.4 MG SUBL 1 07-16-2010 [facility] tablet under tongue every (41479 ) 5 min up to 3 X NITROGLYCERIN [id number] Kath Esquivel MD NITROGLYCERIN 0.3 MG 02-28-2005 [facility] Provider [facility] rt Group SUBLINGUAL TAB Dissolve (08855) 0.4 mg under the tongue. Usual dose for angina is 1 tablet every 5 minutes for maximum of 3 doses in 15 minutes. 0 02/28/2005 Active Comment: Dissolve 0.4 mg under the to ngue. Usual dose for angina is 1 tablet every 5 minutes for maximum of 3 doses in 15 minutes. Nortriptyline nortriptyline (PAMELOR) 11-16-2019 Morgan Valdez [facility] 25 mg capsule (56009) Indications: Type 2 diabetes mellitus with peripheral neuropathy (HCC) Take 1 capsule by mouth daily at bedtime. 30 capsule 5 11/16/2019 Active Comment: Take 1 capsule by mouth ajay y at bedtime. nph insulin, human HUMULIN N 100 UNIT/ML SUSP 08-26-2011 [facility] take as directed (36294) INSULIN ISOPHANE HUMAN [id number] Johan Perry MD HUMULIN N 100 UNIT/ML SUSP take as directed 08-26-2011 [facility] (32476) INSULIN ISOPHANE HUMAN [id number] Johan Perry MD HUMULIN N 100 UNIT/ML SUSP take as directed 08-26-2011 [facility] (63699) INSULIN ISOPHANE HUMAN [id number] Johan Perry MD HUMULIN N 100 UNIT/ML SUSP take as directed 08-26-2011 [facility] (72574) INSULIN ISOPHANE HUMAN [id number] Johan Perry MD HUMULIN N 100 UNIT/ML SUSP take as directed 08-26-2011 [facility] (68435) INSULIN ISOPHANE HUMAN [id number] Johan Perry MD HUMULIN N 100 UNIT/ML SUSP take as directed 08-26-2011 [facility] (66931) INSULIN ISOPHANE HUMAN [id number] Johan Perry MD HUMULIN N 100 UNIT/ML SUSP take as directed 08-26-2011 [facility] (35820) INSULIN ISOPHANE HUMAN [id number] Johan Perry MD HUMULIN N 100 UNIT/ML SUSP take as directed 08-26-2011 [facility] (42120) INSULIN ISOPHANE HUMAN [id number] Johan Perry MD HUMULIN N 100 UNIT/ML SUSP take as directed 08-26-2011 [facility] (53617) INSULIN ISOPHANE HUMAN [id number] Johan Perry MD HUMULIN N 100 UNIT/ML SUSP take as directed 08-26-2011 [facility] (33026) INSULIN ISOPHANE HUMAN [id number] Johan Perry MD omeprazole PRILOSEC 40 MG CPDR One tablet by 08-26-2011 [facility] (12218) mouth twice daily.11 OMEPRAZOLE [id number] Rahul Anaya MD OMEPRAZOLE 20 MG CPDR One tablet by mouth 08-26-2011 [facility] (70041) twice daily OMEPRAZOLE [id number] Vicki Kirkpatrick RN OMEPRAZOLE 20 MG CPDR One tablet by mouth 08-26-2011 [facility] (27530) daily OMEPRAZOLE [id number] Johan Perry MD PRILOSEC 40 MG CPDR One tablet by mouth 08-26-2011 [facility] (40091) twice daily.11 OMEPRAZOLE [id number] Rahul Anaya MD PRILOSEC 40 MG CPDR One tablet by mouth 08-26-2011 [facility] (57331) twice daily.11 OMEPRAZOLE [id number] Rahul Anaya MD PRILOSEC 40 MG CPDR .12 06-10-2011 [facility] (22983) OMEPRAZOLE [id number] Rahul Anaya MD PRILOSEC 40 MG CPDR .12 06-10-2011 [facility] (28669) OMEPRAZOLE [id number] Rahul Anaya MD PRILOSEC 40 MG CPDR .12 06-10-2011 [facility] (37119) OMEPRAZOLE [id number] Rahul Anaya MD Ondansetron ZOFRAN 8 MG TABS 1 12-30-2016 - [facility] tablet by mouth every 01-01-2017 Group (29675) 8 hours as needed ONDANSETRON HCL [id number] Melany Khanna PA-C pantoprazole PANTOPRAZOLE SODIUM 08-26-2011 Melany Marks [facility] 40 MG TBEC One tablet [facility] (44359) by mouth daily PANTOPRAZOLE SODIUM [id number] Melany M Khanna, PA-C Comment: Take 40 mg by mouth once rustam ly. potassium chloride KLOR-CON M10 10 MEQ 10-09-2011 - [facility] CR-TABS One tablet by 09-04-2016 (40974 ) mouth daily POTASSIUM CHLORIDE GISELE CR [id number] MD LIANE RogersCON M10 10 MEQ 10-09-2011 Melissa [facility] CR-TABS One tablet by (94968) mouth daily POTASSIUM CHLORIDE GISELE CR [id number] MD LIANE RogersCON M10 10 MEQ 10-09-2011 Melany [facility] CR-TABS One tablet by RN (21964) mouth daily POTASSIUM CHLORIDE GISELE CR [id number] MD LIANE RogersCON M10 10 MEQ 10-09-2011 Melissa [facility] CR-TABS One tablet by (61258) mouth daily POTASSIUM CHLORIDE GISELE CR [id number] MD LIANE RogersCON M10 10 MEQ 10-09-2011 - [facility] CR-TABS One tablet by 09-04-2016 (05171) mouth daily POTASSIUM CHLORIDE GISELE CR [id number] MD LIANE RogersCON M10 10 MEQ 10-09-2011 Melany [facility] CR-TABS One tablet by RN (58996) mouth daily POTASSIUM CHLORIDE GISELE CR [id number] MD LIANE RogersCON M10 10 MEQ 10-09-2011 - [facility] CR-TABS One tablet by 09-04-2016 (72363) mouth daily POTASSIUM CHLORIDE GISELE CR [id number] MD LIANE RogersCON M10 10 MEQ 10-09-2011 Melany [facility] CR-TABS One tablet by DRAGAN (67724) mouth daily POTASSIUM CHLORIDE GISELE CR [id number] [place] MD LIANE ZuletaCON M10 10 MEQ 10-09-2011 [facility] CR-TABS One tablet by (35684) mouth daily POTASSIUM CHLORIDE GISELE CR [id number] Johan MD LIANE ZuletaCON M10 10 MEQ 10-09-2011 [facility] CR-TABS One tablet by (97403) mouth daily POTASSIUM CHLORIDE GISELE CR [id number] JohanMD LIANE SuhCON M10 10 MEQ 10-09-2011 Melany [facility] CR-TABS One tablet by RN (40161) mouth daily POTASSIUM CHLORIDE GISELE CR [id number] MD LIANE RogersCON M10 10 MEQ 10-09-2011 - [facility] CR-TABS One tablet by 09-04-2016 (26355) mouth daily POTASSIUM CHLORIDE GISELE CR [id number] [place] MD LIANE ZuletaCON M10 10 MEQ 10-09-2011 Melany Cosme [facility] CR-TABS One tablet by RN (21030) mouth daily POTASSIUM CHLORIDE GISELE CR [id number] MD LIANE RogersCON M10 10 MEQ 10-09-2011 [facility] CR-TABS One tablet by (49631) mouth daily POTASSIUM CHLORIDE GISELE CR [id number] MD LIANE RogersCON M10 10 MEQ 10-09-2011 Melissa [facility] CR-TABS One tablet by (74597) mouth daily POTASSIUM CHLORIDE GISELE CR [id number] MD LIANE RogersCON M10 10 MEQ 10-09-2011 Melany [facility] CR-TABS One tablet by DRAGAN (45377) mouth daily POTASSIUM CHLORIDE GISELE CR [id number] MD LIANE RogersCON M10 10 MEQ 10-09-2011 Melany Cosme [facility] CR-TABS One tablet by RN (67921) mouth daily POTASSIUM CHLORIDE GISELE CR [id number] MD LIANE RogersCON M10 10 MEQ 10-09-2011 [facility] CR-TABS One tablet by (33143) mouth daily POTASSIUM CHLORIDE GISELE CR [id number] MD LIANE RogersCON M10 10 MEQ 10-09-2011 Melissa [facility] CR-TABS One tablet by (60209) mouth daily POTASSIUM CHLORIDE GISELE CR [id number] MD LIANE RogersCON M10 10 MEQ 10-09-2011 Melany Cosme [facility] CR-TABS One tablet by RN (37067) mouth daily POTASSIUM CHLORIDE GISELE CR [id number] MD LIANE RogersCON M10 10 MEQ 10-09-2011 Melissa [facility] CR-TABS One tablet by (71813) mouth daily POTASSIUM CHLORIDE GISELE CR [id number] MD LIANE RogersCON M10 10 MEQ 10-09-2011 Melany Cosme [facility] CR-TABS One tablet by RN (02034) mouth daily POTASSIUM CHLORIDE GISELE CR [id number] MD LIANE RogersCON M10 10 MEQ 11-25-2010 - Mle[facility] CR-TABS One tablet by 09-04-2016 RN (17385) mouth daily POTASSIUM CHLORIDE GISELE CR [id number] Johan Perry MD ramipril ALTACE 10 MG CAPS One 07-16-2010 - 06-10-2011 [facility] tablet by mouth twice daily (81746) RAMIPRIL [id number] Rahul Anaya MD ALTACE 10 MG CAPS One tablet by 07-16-2010 - 06-09-2011 [facility] (95456) mouth twice daily RAMIPRIL [id number] Rahul Anaya MD ranolazine ranolazine SR (RANEXA) 02-15-[address] [facility] 1,000 mg Tb12 Take 1 (08283) tablet by mouth twice daily. 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 RANEXA 1000 MG [id number] 02-15-[address] [facility] One tablet by mouth RN (12209) twice daily RANOLAZINE [id number] Melany Khanna PA-C RANEXA 500 MG [id number]-[id number] 02-15-2016 Melissa Marks RN [facility] One tablet by mouth (58221) twice daily RANOLAZINE [id number] Beverly Henry NP RANEXA 1000 MG [id number]-KVF 02-15-[address] [facility] One tablet by mouth RN (07011) twice daily RANOLAZINE [id number] Melany Khanna PA-C RANEXA 500 MG [id number]-BWG 02-15-2016 Melissa Marks RN [facility] One tablet by mouth (62645) twice daily RANOLAZINE [id number] Beverly Henry 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 RANEXA 1000 MG [id number]-[id number] 02-15-[address] [facility] One tablet by mouth RN (51912) twice daily RANOLAZINE [id number] Melany Khanna PA-C RANEXA 1000 MG [id number]-[id number] 02-15-[address] [facility] One tablet by mouth RN (46077) twice daily RANOLAZINE [id number] Melany Khanna PA-C RANEXA 500 MG [id number]-[id number] 02-15-2016 Melissa Marks RN [facility] One tablet by mouth (16899) twice daily RANOLAZINE [id number] Beverly Henry 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 RANEXA 500 MG [id number]-HSQ 02-15-2016 [facility] One tablet by mouth (36794) twice daily RANOLAZINE [id number] Beverly Henry 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 RANEXA 1000 MG [id number]-[id number] 02-15-[address] [facility] One tablet by mouth RN (43326) twice daily RANOLAZINE [id number] Melany Khanna PA-C RANEXA 500 MG [id number]-[id number] 02-15-2016 [facility] One tablet by mouth (85938) twice daily RANOLAZINE [id number] Beverly Henry 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 RANEXA 1000 MG [id number]-[id number] 02-15-[address] [facility] One tablet by mouth RN (95354) twice daily RANOLAZINE [id number] Melany Khanna PA-C RANEXA 1000 MG [id number]-PVZ 02-15-[address] [facility] One tablet by mouth RN (20075) twice daily RANOLAZINE [id number] Melany Khanna PA-C RANEXA 500 MG [id number]-[id number] 02-15-2016 [facility] One tablet by mouth (88154) twice daily RANOLAZINE [id number] Beverly Henry 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 RANEXA 1000 MG [id number]-VDH 02-15-[address] [facility] One tablet by mouth RN (36260) twice daily RANOLAZINE [id number] Melany Khanna PA-C RANEXA 500 MG [id number] 02-15-2016 Melissa Marks RN [facility] One tablet by mouth (90087) twice daily RANOLAZINE [id number] Beverly Henry 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 RANEXA 1000 MG [id number] 02-15-[address] [facility] One tablet by mouth RN (69500) twice daily RANOLAZINE [id number] Melany Khanna PA-C RANEXA 500 MG [id number] 02-15-2016 Melissa Marks RN [facility] One tablet by mouth (59797) twice daily RANOLAZINE [id number] Beverly Henry 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 RANEXA 500 MG [id number] 02-07-2015 - [facility] One tablet by mouth 07-03-2015 (07635) twice daily RANOLAZINE [id number] Johan Perry MD RANEXA 500 MG [id number] 02-07-2015 - [facility] One tablet by mouth 07-03-2015 (74661) twice daily RANOLAZINE [id number] Johan Perry MD RANEXA 500 MG [id number] 02-07-2015 Jessica Odom RN Garcia [facility] tablet by mouth (14143) twice daily RANOLAZINE [id number] Johan Perry MD RANEXA 500 MG [id number] 02-07-2015 Jessica Odom RN [facility] One tablet by mouth (75369) twice daily RANOLAZINE [id number] Johan Perry MD RANEXA 500 MG [id number] 02-07-2015 - [facility] One tablet by mouth 07-03-2015 (61326) twice daily RANOLAZINE [id number] Johan Perry MD RANEXA 500 MG [id number] 02-07-2015 Jessica Odom RN [facility] One tablet by mouth (44614) twice daily RANOLAZINE [id number] Johan Perry MD RANEXA 500 MG [id number] 02-07-2015 - [facility] One tablet by mouth 07-03-2015 (86743) twice daily RANOLAZINE [id number] Johan Perry MD RANEXA 500 MG [id number] 02-07-2015 - [facility] One tablet by mouth 07-03-2015 (77701) twice daily RANOLAZINE [id number] Johan Perry MD RANEXA 500 MG [id number] 02-07-2015 Jessica Odom RN [facility] One tablet by mouth (52869) twice daily RANOLAZINE [id number] Johan Perry MD RANEXA 500 MG [id number] 02-07-2015 Jesisca Odom RN [facility] One tablet by mouth (73345) twice daily RANOLAZINE [id number] Johan Perry MD RANEXA 500 MG [id number] 02-07-2015 - [facility] One tablet by mouth 07-03-2015 (16448) twice daily RANOLAZINE [id number] Johan Perry MD RANEXA 500 MG [id number] 02-07-2015 - [facility] One tablet by mouth 07-03-2015 (36874) twice daily RANOLAZINE [id number] Johan Perry MD RANEXA 500 MG [id number] 02-07-2015 Jessica Odom RN [facility] One tablet by mouth (25937) twice daily RANOLAZINE [id number] Johan Perry MD RANEXA 500 MG [id number] 02-07-2015 Jessica Odom RN [facility] One tablet by mouth (72202) twice daily RANOLAZINE [id number] Johan Perry MD RANEXA 500 MG [id number] 02-07-2015 - [facility] One tablet by mouth 07-03-2015 (76471) twice daily RANOLAZINE [id number] Johan Perry MD RANEXA 500 MG [id number] 02-07-2015 - [facility] One tablet by mouth 07-03-2015 (76560) twice daily RANOLAZINE [id number] Johan Perry MD RANEXA 500 MG [id number] 02-07-2015 Jessica Odom RN [facility] One tablet by mouth (25437) twice daily RANOLAZINE [id number] Johan Perry MD RANEXA 500 MG [id number] 02-07-2015 - [facility] One tablet by mouth 07-03-2015 (66772) twice daily RANOLAZINE [id number] Johan Perry MD RANEXA 500 MG [id number] 02-07-2015 Jessica Odom RN [facility] One tablet by mouth (22988) twice daily RANOLAZINE [id number] Johan Perry MD Comment: Take 1 tablet by mouth twice daily. Regular Insulin, insulin regular human 11-08-2019 - Deniz Roy [facility] Human (NOVOLIN R REGULAR 12-12-2019 (68191) U-100 INSULN) 100 unit/mL injection Indications: Type 2 diabetes mellitus with st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, with long-term current use of insulin ([facility]) Inject 15 units Subcutaneously three times [...] rOPINIRole rOPINIRole (REQUIP) 0.5 10-20-2019 Morgan Mooney [facility] (01795) mg tablet Take 1 tablet by mouth [...] twice (4 4691) daily SOTALOL HCL AF [id number] Rahul Anaya MD SOTALOL HCL (AF) 80 MG TABS One 07-04-2011 [facility] (99534) tablet by mouth twice daily SOTALOL HCL AF [id number] Funmilayo Morales RN SOTALOL HCL (AF) 80 MG TABS One 07-04-2011 - 03-04-2012 [facility] (02467) tablet by mouth twice daily SOTALOL HCL AF [id number] Rahul Anaya MD SOTALOL HCL (AF) 80 MG TABS One 07-04-2011 [facility] (19487) tablet by mouth twice daily SOTALOL HCL AF [id number] Funmilayo Morales RN SOTALOL HCL (AF) 80 MG TABS One 07-04-2011 [facility] (42131) tablet by mouth twice daily SOTALOL HCL AF [id number] Funmilayo Morales RN SOTALOL HCL (AF) 80 MG TABS One 07-04-2011 - 03-04-2012 [facility] (67093) tablet by mouth twice daily SOTALOL HCL AF [id number] Rahul Anaya MD SOTALOL HCL (AF) 80 MG TABS One 07-04-2011 - 03-04-2012 [facility] (00518) tablet by mouth twice daily SOTALOL HCL AF [id number] Funmilayo Morales RN SOTALOL HCL (AF) 80 MG TABS One 07-04-2011 - 03-04-2012 [facility] (12246) tablet by mouth twice daily SOTALOL HCL AF [id number] Rahul Anaya MD SOTALOL HCL (AF) 120 MG TABS One 07-03-2011 [facility] (25552) tablet by mouth twice daily SOTALOL HCL AF [id number] Funmilayo Morales RN SOTALOL HCL (AF) 120 MG TABS One 07-03-2011 [facility] (62505) tablet by mouth twice daily SOTALOL HCL AF [id number] Funmilayo Morales RN SOTALOL HCL (AF) 120 MG TABS One 07-03-2011 [facility] (13505) tablet by mouth twice daily SOTALOL HCL AF [id number] Funmilayo Morales RN SOTALOL HCL (AF) 120 MG TABS One 07-03-2011 [facility] (79462) tablet by mouth twice daily SOTALOL HCL AF [id number] Funmilayo Morales RN SOTALOL HCL (AF) 120 MG TABS One 07-03-2011 [facility] (56427) tablet by mouth twice daily SOTALOL HCL AF [id number] Funmilayo Morales RN Spironolactone spironolactone 11-26-2017 Morgan Valdez [facility] (ALDACTONE) 25 mg tablet (44 195) Take 1 tablet by mouth once daily. 0 11/26/2017 Active Comment: Take 1 tablet by mouth once daily. traZODone traZODone (DESYREL) 50 09-16-2019 - Deniz Mathur [facility] mg tablet Indications: 03-14-2020 (4419 5) Sleep difficulties Take 2 tablets by mouth daily at bedtime. 180 tablet 1 09/16/2019 03/14/2020 Active Comment: Take 2 tablets by mouth ajay y at bedtime. warfarin warfarin (COUMADIN) 3 mg 09-01-2019 Morgan Valdez [facility] tablet Indications: Chronic (74636) atrial fibrillation (HCC) 3 mg every Mon, Wed, Fri; 6 mg all other days 150 tablet 3 09/01/2019 Active COUMADIN 1 MG TABS Take as directed 3 08-26-2011 [facility] (21401) tablets by mouth one 5mg tablet to =8mg daily WARFARIN SODIUM [id number] Rahul Anaya MD COUMADIN 1 MG TABS managed by Dr. Hunt 08-26-2011 [facility] (37464) Cebul WARFARIN SODIUM [id number] Johan Perry MD COUMADIN 5 MG TABS managed by Dr. Hunt 08-26-2011 [facility] (12798) Cebul WARFARIN SODIUM [id number] Johan Perry MD COUMADIN 5 MG TABS Take as directed 5mg 08-26-2011 [facility] (68132) daily with three 1mg tablets to =8mg daily WARFARIN SODIUM [id number] Rahul Anaya MD Comment: 3 mg every Mon, Wed, Fri; 6 mg all other days Problems Active Problems Category Problem Name Status Date Location Acute myocardial Subsequent non-ST Active 12-11-2014 - [facility] infarction segment elevation - 06-26-2015 (39072) myocardial infarction - Cardiac dysrhythmias Atrial fibrillation Active 07-16-2010 - [facility] (30771) Conduction disorders Automatic implantable Active [facility] cardiac defibrillator in (44 195) situ Congestive heart Acute on chronic Active 12-17-2018 - [facility] failure; systolic heart failure (4419 5) nonhypertensive 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 - [facility] atherosclerosis and infarction - 06-26-2015 (47358) other heart disease - Diabetes mellitus Type 2 diabetes mellitus Active 06-15-2017 - [facility] without complication (83855) Diseases of white blood Leukocytosis Active 01-29-2013 - [facility] cells (86973) Disorders of lipid Hyperlipidemia Active 07-16-2010 - [facility] metabolism (25934) Esophageal disorders Gastroesophageal reflux Active 8 - [facility] disease (15036) Essential hypertension Essential hypertension Active 07-17-19 11 - [facility] (42663) Hyperplasia of prostate Benign prostatic Active 09-16-2007 - [facility] hypertrophy with outflow (44 195) obstruction Inflammatory conditions Balanitis Active 11-16-2016 - [facility] of male genital organs (4419 5) Other and ill-defined Cardiomegaly Active [facility] heart disease (07256) Other hereditary and Restless legs Active 07-28-2018 - [facility] degenerative nervous (95149) system conditions Other nutritional; Body mass index (BMI) Active 03-08-2013 - [facility] endocrine; and 38.0-38.9, adult (78442) metabolic disorders Other nutritional; Body mass index (BMI) Active 03-08-2013 - [facility] endocrine; and 37.0-37.9, adult (89471) metabolic disorders Other nutritional; Body mass index (BMI) Active 03-08-2013 - [facility] endocrine; and 34.0-34.9, adult (07533) metabolic disorders Other nutritional; Body mass index (BMI) Active 03-08-2013 - [facility] endocrine; and 35.0-35.9, adult [facility] metabolic disorders (12163) Other nutritional; Body mass index (BMI) Active 03-08-2013 - [facility] endocrine; and 36.0-36.9, adult - 03-29-2015 (52084) metabolic disorders - Other nutritional; Obesity Active 09-16-2011 - [facility] endocrine; and (63385) metabolic disorders Residual codes; Obstructive sleep apnea Active 07-26-2018 - [facility] unclassified syndrome (94642) Screening or history of Tobacco dependence Active 07-16-2010 - [facility] mental health and syndrome - 12-30-2016 (79183) substance abuse - Spondylosis; Arthritis of facet joint Active 07-14-2017 - [facility] intervertebral disc of lumbar spine (4419 5) disorders; other back problems Unclassified Type 2 diabetes mellitus Active 03-29-2015 - [facility] with diabetic peripheral (44 691) angiopathy without gangrene Unclassified Anticoagulant effect Active 07-03-2011 - [facility] (22683) Unclassified Placement of stent in Active 07-16-2010 - [facility] coronary artery (43074) Unclassified Long-term drug therapy Active 07-16-2010 - [facility] (12071) Unclassified Implantation of Active 07-16-2010 - [facility] automatic cardiac (59078) defibrillator Past or Other Problems Category Problem Name Status Date Location Fluid and electrolyte Hypokalemia Completed 08-18-2011 [facility] - - [facility] (97130) 06-26-2015 - Lymphadenitis [facility]opathy [facility] [facility]946[facility] Mycoses Onychomycosis due to Completed 06-05-2011 [facility] dermatophyte - (95381) Nonspecific chest pain Chest pain Completed 01-30-2016 [facility] (88425) Other aftercare Other vice president marketing & development Completed 07-16-2010 [facility] (current) drug therapy - Group (54795) Other and unspecified Benign neoplasm of Completed 02-21-2009 [facility] benign neoplasm colon - (97085) Other circulatory Carotid bruit Completed 03-14-2016 [facility] disease - Group (07778) Other circulatory Low blood pressure Completed 08-18-[address] [facility] disease - - Group (71287) 06-26-2015 - Other diseases of veins Stasis dermatitis Completed 04-05-2013 [facility] and lymphatics - (31792) Other gastrointestinal Dysphagia Completed 03-01-2015 [facility] disorders - (49467) Other hematologic High troponin I level Completed 01-29-2013 [facility] conditions - (10669) Other lower respiratory Dyspnea, unspecified Completed 5 [place] disease - - Medical Service , 06-26-2015 [facility] (88761) - Other lower respiratory Dyspnea on exertion Completed 12-06-2014 [facility] disease - - Group (19146) 06-26-2015 - Other skin disorders Localized swelling, Completed 07-28-2018 [facility] mass and lump, neck - (29092) Other skin disorders Foot callus Completed 10-04-2014 [facility] - (60746) Phlebitis; H/O: Deep vein Completed 01-26-2018 [place] [facility] thrombophlebitis and thrombosis - (90460) thromboembolism Residual codes; Past history of Completed 11-16-2016 [facility] unclassified procedure - (36238) Syncope Vasovagal syncope Completed 12-16-2010 [facility] - [facility] ([id number]) 06-26-2015 - Unclassified Family history of Completed 01-26-2018 [facility] stroke - Group (71248) Unclassified Preoperative Completed 11-03-2014 [facility] cardiovascular - - Group (86523) examination 12-25-2014 - Unclassified Type 1 diabetes Completed 07-16-2010 [facility] mellitus with diabetic - - Group (28451) peripheral angiopathy 12-30-2016 without gangrene - Results Result Name Value Range Unit Interpretation Flag Date Location obsolete on 2019-12 OBSOLETE Refill (FAMPWS) Normal 01-06-2020 [facility] LOVELY DEVI ([id number]) 1945 [facility] Date Time Provider Department ([id number]) 01/06/20 MORGAN VALDEZ III FAMPWS During your [...] skin Date Reviewed: 10/27/2019 Reviewed by: Linwood ([facility]) JAZZY Carpenter - Fully Assessed Reason for Visit: Refill Request [94] Visit Diagnosis: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, with long-term current use of insulin ([facility]) [E11.40, Z79.4] Order(s):gabapentin (NEURONTIN) 300 mg [...] by MORGAN VALDEZ III, [facility]) Normal 12-27-2019 [place] [facility] LOVELY DEVI ([id number]) 1945 [facility] Date Time Provider Department (57209) 12/27/19 MORGAN VALDEZ IIIVIVEK During your visit [...] Fully Assessed Reason for Visit: Patient Question [9827] Prescriptions as of 12/27/2019 Sig: INSULIN LISPRO [...] mouth once ajay * LANCETS Use with [employer] Glucometer * ASPIRIN 81 MG TABLET Take [...] on 12/28/19 cnpn on 2019-12-20 CNPN Telephone ([facility]) Normal 12-20-2019 [place] [facility] LOVELY DEVI ([id number]) [address] [facility] Time Provider Department (30027) 12/20/19 ANDRE (PHARMACIST), LEE COTTER During your visit today, we recorded the following informati on about you: Lee Moss Pharmacist 12/20/2019 5:07 PM Signed Patient was due to test INR today. Will continue to monitor for results. Lee Moss, Pharmacist ANSHUL SEBASTIAN 12/21/2019 9:21 AM Signed [facility] Referring provider: No ref. provider found Lovely Devi is a 74 year old year old male patient being evaluated today for anticoagulation Telemanagement visit. Patient is currently on the following anticoagulant Warfarin Labs PT INR (no units) Date Value 11/26/2018 Test sent to [facility]. 10/16/2017 1.8 01/16/2017 Test sent to [facility]. INR (POCT) (no units) Date Value 02/21/2019 [...] of liver or green tea, Ensure, Boost, Voss Instant Breakfast, Mulit-Vitamins, and V-8. Plan: ? Advised patient to continue with a hig her weekly warfarin dose at this time. ? Next home INR check scheduled on 01/04/2020 ? Patient verbalizes understanding of the plan. JOLEEN CERRATO, PHARMACIST Clinical Pharmacist, Pharmacy Anticoagulation Clinic Pharmacy Anticoagulation Clinic Pager: [phone] Description Patient has 3 mg tablets of warfarin. Patient takes in the m orning. . Allergies As of Date: 12/20/2019 Noted Allergy Reaction MORPHINE 02/28/2005 ROCEPHIN (CEFTRIAXONE SODIUM) 06/20/2014 14 - Other: See Com ments Comments: Hot flashes; redness to skin Date Reviewed: 10/27/2019 Reviewed by: Linwood ([facility]) JAZZY Carpenter - Fully Assessed Reason for [...] mouth once ajay * LANCETS Use with [employer] Glucometer * ASPIRIN 81 MG TABLET Take [...] on progress on 2019-11 PROGRESS HNO ID: [id number] Normal 12-15-2019 [place] Author: Denita Thorpe (Pharmacist) Clinic Service: ? Aneudy Author Type: Pharmacist ([id number]) Type: Progress Notes Filed: 12/27/2019 8:49 AM Note Text: TELEPHONIC APPOINTMENT [place] law requires the collaborative practice agreement to [...] manage ment appointment for diabetes. At 09/15 CYBER SECURITY ENGINEER?appt,?insulin NPH dose decreased pt was consulted to pharmacy due to increased hypoglycemia.?At last CYBER SECURITY ENGINEER visit gabapentin was initiated and empiric treatment for UTI was s tarted with nitrofurantoin monohydrate.?At PharmD visit on?,?ins ulin lispro dose was decreased and patient was recommended to pursue bas al/bolus insulin pens through [facility] patient assistance. At last PCP appt,?no [...] patient confirmed receiving Basaglar and Humalog from [facility], he was instructed t hat [...] Pharmacy:?[facility] ? Rx coverage:?Medicare ? Affordability:?insulins through [facility] ? 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 Esophageal Reflux Benign Neoplasm of Colon Dermatophytosis of Nail Atrial Fibrillation (Hcc) Anticoagulated On Coumadin Class 2 Severe Obesity Due to Excess Calories With Serious C omorbidity and Body Mass Index (Bmi) of 38.0 to 38.9 in Adult ([facility]) Stasis Dermatitis of Both Legs Foot Callus Subsequent Non-St Elevation (Nstemi) Myocardial Infarction W ithin 4 Weeks of Initial Infarction ([facility]) Syncope Hyperlipidemia Ldl Goal <100 Ashd (Arteriosclerotic Heart Disease) Neurocardiogenic Syncope 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 , With Long-Term Current Use of Insulin (Hcc) Facet Arthritis of Lumbar Region Adenopathy Atrial Flutter ([facility]) Balanitis Coronary Angioplasty Status Elevated [...] of vessel, na tive or graft s/p MA in 1985 - Diverticulosis of colon (without [...] ventricular tachycardia (HCC) - Snoring - Stroke ([facility]) - Tinea of nail 01/13/2011 - Type 2 diabetes mellitus with stage 3 chronic kidney disea se, with long-term current use of insulin ([facility]) 06/15/2017 - Unspecified essential hypertension ALLERGIES [...] G47.33 327.23 - fax compliance download to [phone] 1 Device 0 - flash glucose sensor [...] once daily. 0 - blood sugar diagnostic ([employer] BLOOD GLUCOSE SYSTEM) test strip Use as [...] PharmD, BCACP Primary Care Clinical Pharmacist [facility] cnov on 2019-12-15 CNOV Office Visit (PHMEWO) Normal 12-15-[address] [place] [address] Clinic LOVELY DEVI ([id number]) 1945 [address] [place] Date Time Provider Department ([id number]) 12/15/19 10:30 AM KEMI (PHARMACIST)[facility] During your visit today, we recorded the following informati on about you: Anshul Hancock 12/27/2019 8:49 AM Signed TELEPHONIC APPOINTMENT [place] law requires the collaborative practice agreement to [...] pharmacotherapy management appointment for diabetes. At 09/15 CYBER SECURITY ENGINEER?appt,?insulin NPH dose decreased pt was consulted to pharmacy due to increased hypoglycemia.?At last CYBER SECURITY ENGINEER visit ga bapentin was initiated and empiric treatment for UTI was started with nit rofurantoin monohydrate.?At PharmD visit on?,?insulin lispro dose was decreased and patient was recommended to pursue basal/ bolus insulin pens through [facility] patient assistance. At last PCP appt,?no [...] Pharmacy:?[facility] ? Rx coverage:?Medicare ? Affordability:?insulins through [employer] ? 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 0 - blood sugar diagnostic ([facility] [facility] BLOOD GLUCOSE SYSTEM) test strip Use as [...] TOUCH ULTRASO FT LANCETS) lancets Use with [employer] Glucometer as directed 100 Each 3 - [...] disease, with long-term current use of insulin ([facility]) - ICD9: 250.40, 585.3, V58.67, ICD10: [...] LisaD, BCACP Primary Care Clinical Pharmacist [facility] Referring Provider: DENIZ GARSIA [[id number]] Allergies As of Date: 12/15/2019 Noted Allergy Reaction MORPHINE 02/28/2005 ROCEPHIN (CEFTRIAXONE SODIUM) 06/20/2014 14 - Other: See Com ments Comments: Hot flashes; redness to skin Date Reviewed: 10/27/2019 Reviewed by: Linwood ([facility]) JAZZY Carpenter - Fully Assessed Reason for Visit: Allied Health Visit [5] Cmt: DM Primary Visit Diagnosis:Type 2 diabetes mellitus with st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, with long-term current use of insulin ([facility]) [E11.22, N18.3, Z79.4] Prescriptions as of [...] 2019-12-09 Anion gap [Moles/Vol] 6 mmol/L 12-09-19 [facility] (00884) BASO ABS 12-09-2019 [facility] (18504) Basophils/100 WBC 12-09-2019 [facility] (d) (56634) Calcium [Mass/Vol] 8.7 8.8 - 10.5 MG/DL Abnormal 12-09-2019 [facility] MG/DL (73557) Chloride [Moles/Vol] 98 98 - 107 MEQ/L 0 [facility] MEQ/L (80289) Creatinine [Mass/Vol] 1.68 0.6 - 1.3 MG/DL Abnormal 12-09-19 [facility] MG/DL (70880) EOS ABS 12-09-2019 [facility] (84816) Eosinophils/100 WBC 12-09-2019 [facility] (Bld) (48421) Erythrocyte 12-09-2019 [facility] distribution width ( 94408) (RBC) [Ratio] GFR AFR AMER 52 mL/MIN 12-09-2019 [facility] (16479) GFR/1.73 sq 43 mL/MIN 12-09-2019 [facility] M.predicted MDRD (44 195) (S/P/Bld) [Vol rate/Area] Glucose [Mass/Vol] 209 74 - 106 MG/DL Abnormal 12-09-2019 [facility] MG/DL (04114) HCO3 (Bld) [Moles/Vol] 32.0 mmol/L 020 [facility] (63046) Hematocrit (Bld) 38.6 39 - 55 % % Abnormal 12-09-2019 [facility] [Volume fraction] (4 4195) Hemoglobin (Bld) 12.5 14 - 16.5 g/dL Abnormal 12-09-2019 [facility] [Mass/Vol] g/dL (73598) Lymphocytes (d) 12-09-2019 [facility] [#/Vol] (89857) Lymphocytes/100 WBC 12-09-2019 [facility] (d) (79177) MCH (RBC) [Entitic 29.8 25.4 - 34.6 pg 0 [facility] mass] pg (11594) MCHC (RBC) [Mass/Vol] 32.4 30 - 36 g/dL g/dL 12-08 [facility] (60682) MCV (RBC) [Entitic 91.9 79 - 98 fL fL 12-09-2019 [facility] vol] (70717) MONO ABS 12-09-2019 [facility] (30085) Monocytes/100 WBC 12-09-2019 [facility] (d) (06333) NEUT ABS 12-09-2019 [facility] (51911) Neutrophils/100 WBC 12-09-2019 [facility] (d) (81406) Platelet mean volume 10.4 7.4 - 10.4 fL fL 12-08 [facility] ([facility]) [Entitic vol] (60188) Platelets (Bld) 168 140 - 440 K/uL 12-09-2019 [facility] [#/Vol] K/uL (77838) Potassium [Moles/Vol] 4.3 3.5 - 5.1 MEQ/L 12-09-19 20 [facility] MEQ/L (86603) RBC (Bld) [#/Vol] 4.20 4 - 6 M/uL M/uL 12-09-2019 [facility] (31084) Sodium [Moles/Vol] 136 136 - 145 MEQ/L 12-09-2019 [facility] MEQ/L (47188) Urea nitrogen 32 6 - 20 mg/dL mg/dL Abnormal 12-09-2019 [facility] [Mass/Vol] (39248) WBC (Bld) [#/Vol] 5.7 3.9 - 11 K/uL K/uL 12-09-19 20 [facility] (85570) cnpn on 2019-12-08 CNPN Telephone (FAMPWS) Normal 12-08-2019 [place] [facility] LOVELY DEVI ([id number]) 1945 [facility] Time Provider Department (25293) 12/08/19 MORGAN VALDEZ III During your visit today, we recorded the following informati on about you: Tasha Chan RN 12/08/2019 1:08 PM Signed Argelia- OT- [facility]- reporting POC- reports this was a delay [...] skin Date Reviewed: 10/27/2019 Reviewed by: Linwood ([facility]) JAZZY Carpenter - Fully Assessed Reason for Visit: [facility] OT POC [Other] Prescriptions as of 12/08/2019 [...] on 2019-11 OBSOLETE Refill (FAMPWS) Normal 12-07-2019 [facility] LOVELY DEVI ([id number]) [address] [facility] Time Provider Department ([id number]) 12/07/19 MORGAN VALDEZ III During your visit [...] skin Date Reviewed: 10/27/2019 Reviewed by: Linwood ([facility]) JAZZY Carpenter - Fully Assessed Reason for [...] III, MD on 12/07/19 yoandy on 2019-12-07 [facility] Telephone (FAMPWS) Normal 12-07-2019 [place] [facility] LOVELY DEVI ([id number]) 1945 [facility] Time Provider Department ([id number]) 12/07/19 MORGAN VALDEZ III [facility] During your visit today, we recorded the following informati on about you: Cindi Eastman LPN 12/07/2019 10:56 AM Signed CARLITOS: Nicole with [facility] PT calling with plan of ca re for pt. 1 time visit only. Saw pt today at prior status having him try exercises taught in September to do thru out the day. Cindi Valdez III MD 12/07/2019 12:29 PM Signed Noted Morgan Valdez III, MD, FAAFP Allergies As of Date: 12/07/2019 Noted Allergy Reaction MORPHINE 02/28/2005 ROCEPHIN (CEFTRIAXONE SODIUM) 06/20/2014 14 - Other: See Com ments Comments: Hot flashes; redness to skin Date Reviewed: 10/27/2019 Reviewed by: Linwood ([facility]) JAZZY Carpenter - Fully Assessed Reason for Visit: Plan of Care [Other] Cmt: [facility] PT Prescriptions as of 12/07/2019 Sig: NORTRIPTYLINE [...] on 2019-12-06 CNPN Telephone (PHAMTE) Normal 12-06-2019 [facility] [facility] LOVELY DEVI ([id number]) [address] [facility] Time Provider Department ([id number]) 12/06/19 ANDRE (PHARMACIST)LEE During your visit today, we recorded the following informati on about you: Lee Moss, Pharmacist 12/06/2019 3:33 PM Signed [facility] Lovely Devi is a 74 year old year old male patient being evaluated today for anticoagulation Telemanagement visit. Patient is currently on the following anticoagulant Warfarin Labs PT INR (no units) Date Value 11/26/2018 Test sent to [facility]. 10/16/2017 1.8 01/16/2017 Test sent to [facility]. INR (POCT) (no units) Date Value 02/21/2019 [...] a nd advised to call PAC at [phone] if any questions or changes to report. Would like to try one more time to reach patient. INR 2 weeks ago was low and lef t VM for patient so not sure if he got message. Lee Moss, Pharmacist Clinical Pharmacist, Pharmacy Anticoagulation Clinic Pharmacy [facility]ticoagulation Clinic Pager: [phone] Description Patient has 3 mg tablets of warfarin. Patient takes in the m orning. . Cristina Escobar (X Ray Control Equipment Repairer) 12/06/2019 5:16 PM Signed Patient called and left message that stated he r eceived a message re: his INR result and dosing but he cou ldn't understand what dose to take of his warfarin. Patient can be reached at [phone]. Cristina Escobar CPhT (Intake Coordinator) Pharmacy Anticoagulation Clinic Anshul Marquez 12/06/2019 5:27 PM Signed [facility] Referring provider: No ref. provider found Lovely Devi is a 74 year old year old male patient being evaluated today for anticoagulation Telemanagement visit. Patient is currently on the following anticoagulant Warfarin Labs PT INR (no units) Date Value 11/26/2018 Test sent to [facility]. 10/16/2017 1.8 01/16/2017 Test sent to [facility]. INR (POCT) (no units) Date Value 02/21/2019 [...] Pharmacy Anticoagulation Clinic Pharmacy Anticoagulation Clinic Pager: [phone] Description Patient has 3 mg tablets of warfarin. Patient takes in the m orning. . Allergies As of Date: 12/06/2019 Noted Allergy Reaction MORPHINE 02/28/2005 ROCEPHIN (CEFTRIAXONE SODIUM) 06/20/2014 14 - Other: See Com ments Comments: Hot flashes; redness to skin Date Reviewed: 10/27/2019 Reviewed by: Linwood ([facility]) JAZZY Carpenter - Fully Assessed Reason for [...] (PHARMACIST)GABRIELA on CNPN Telephone (FAMPWS) Normal 12-06-2019 [facility] [facility] LOVELY DEVI ([id number]) 1945 M [place] Date Time Provider Department ([id number]) 12/06/19 MORGAN VALDEZ III During your visit today, we recorded the following informati on about you: Cindi Eastman LPN 12/06/2019 4:51 PM Signed Melissa @ [facility] plan of care and resumption of car [...] skin Date Reviewed: 10/27/2019 Reviewed by: Linwood ([facility]) JAZZY Carpenter - Fully Assessed Reason for [...] mouth once ajay * LANCETS Use with [employer] Glucometer * ASPIRIN 81 MG TABLET Take [...] [Relative 1.6 2.0 - 3.0 Abnormal 09-0 [facility] ([id number]) time] cnpn on 2019-11-30 CNPN Telephone (PHMEWO) Normal 11-30-2019 [place] [facility] LOVELY DEVI ([id number]) [address] [facility] Time Provider Department ([id number]) 11/30/19 KEMI (PHARMACIST)DENITA During your visit today, we recorded the following informati on about you: Cindi Pichardo RN 11/30/2019 12:55 PM Signed Patient wanted Pharmacist Denita aware that his mail cam e today and he did not receive the Basaglar insulin from [employer] in the mail yesterday or today. He was told to call Denita if did not receive insulin. Please review and advise. DRAGAN Valdez, Pharmacist 12/01/2019 3:54 PM Signed Returned call to patient. Pt 's answers phone to state that insulin package was received today. Denita Thorpe, PharmD, BCACP Primary Care Clinical Pharmacist [facility] Allergies As of Date: 11/30/2019 Noted Allergy Reaction MORPHINE 02/28/2005 ROCEPHIN (CEFTRIAXONE SODIUM) 06/20/2014 14 - Other: See Com ments Comments: Hot flashes; redness to skin Date Reviewed: 10/27/2019 Reviewed by: Linwood ([facility]) JAZZY Carpenter - Fully Assessed Reason for [...] on 2019-11-23 CNPN Telephone (PHAMTE) Normal 11-23-2019 [facility] [facility] LOVELY DEVI ([id number]) [address] [facility] Time Provider Department ([id number]) 11/23/19 BLOSSOM (PHARMACIST)BRIJESH During your visit today, we recorded the following informati on about you: ANSHUL SEBASTIAN 11/23/2019 8:56 AM Signed [facility] Referring provider: No ref. provider found Lovely Devi is a 74 year old year old male patient being evaluated today for anticoagulation Telemanagement visit. Patient is currently on the following anticoagulant Warfarin Labs PT INR (no units) Date Value 11/26/2018 Test sent to [facility]. 10/16/2017 1.8 01/16/2017 Test sent to [facility]. INR (POCT) (no units) Date Value 02/21/2019 [...] Pharmacy Anticoagulation Clinic Pharmacy Anticoagulation Clinic Pager: [phone] Description Patient has 3 mg tablets of warfarin. Patient takes in the m orning. . Allergies As of Date: 11/23/2019 Noted Allergy Reaction MORPHINE 02/28/2005 ROCEPHIN (CEFTRIAXONE SODIUM) 06/20/2014 14 - Other: See Com ments Comments: Hot flashes; redness to skin Date Reviewed: 10/27/2019 Reviewed by: Linwood ([facility]) JAZZY Carpenter - Fully Assessed Reason for [...] mouth once ajay * LANCETS Use with [employer] Glucometer * ASPIRIN 81 MG TABLET Take [...] (PHARMACIST)JOLEEN on CNPN Telephone (PHMEWO) Normal 11-23-2019 [place] [facility] LOVELY DEVI ([id number]) 1945 M [place] Date Time Provider Department ([id number]) 11/23/19 KEMI (PHARMACIST)DENITA During your visit today, [...] (to replace Humul in) were sent to [facility] on 10/23. Attempted to call [facility] to flakita nathan, unable to reach construction sales representative. Was able to leave voicemail on [...] Thorpe PharmD, BCACP Primary Care Clinical Pharmacist [facility] Denita Thorpe Pharmacist 11/28/2019 4:55 PM Signed Called and spoke with [facility], they confirm that Basa glar is ready for delivery. Will arrive tomorrow. Called and spoke with pt's , Ila aleman re someone over the age of 18 is home to sign for package. She verbalized understanding. Denita Thorpe PharmD, BCACP Primary Care Clinical Pharmacist [facility] Allergies As of Date: 11/23/2019 Noted Allergy Reaction MORPHINE 02/28/2005 ROCEPHIN (CEFTRIAXONE SODIUM) 06/20/2014 14 - Other: See Com ments Comments: Hot flashes; redness to skin Date Reviewed: 10/27/2019 Reviewed by: Linwood ([facility]) JAZZY Carpenter - Fully Assessed Reason for Visit: Medication Update [5543] Prescriptions as of 11/23/2019 Sig: NORTRIPTYLINE 25 [...] [Relative 1.7 2.0 - 3.0 Abnormal - [facility] ([id number]) time] progress on 2019-10 PROGRESS HNO ID: [id number] Normal 11-21-2019 [place] Author: Denita Thorpe (Pharmacist) Clinic Service: ? [place] Author Type: Pharmacist ([id number]) Type: Progress Notes Filed: 12/05/2019 9:55 PM Note Text: TELEPHONIC APPOINTMENT [place] law requires the collaborative practice agreement to [...] manage ment appointment for diabetes. At 09/15 CYBER SECURITY ENGINEER?appt,?insulin NPH dose decreased pt was consulted to pharmacy due to increased hypoglycemia.?At last CYBER SECURITY ENGINEER visit gabapentin was initiated and empiric treatment for UTI was s tarted with nitrofurantoin monohydrate. At PharmD visit on , ins ulin lispro dose was decreased and patient was recommended to pursue bas al/bolus insulin pens through [employer] patient assistance. At last PCP appt, no [...] (Bmi) of 38.0 to 38.9 in Adult ([facility]) Stasis Dermatitis of Both Legs Foot Callus Subsequent Non-St Elevation (Nstemi) Myocardial Infarction W ithin 4 Weeks of Initial Infarction ([facility]) Syncope Hyperlipidemia Ldl Goal <100 [...] of vessel, na tive or graft s/p MA in 1985 - Diverticulosis of colon (without [...] ventricular tachycardia (HCC) - Snoring - Stroke ([facility]) - Tinea of nail 01/13/2011 - Type 2 diabetes mellitus with stage 3 chronic kidney disea se, with long-term current use of insulin ([facility]) 06/15/2017 - Unspecified essential hypertension ALLERGIES [...] humidity and lifetime supplies. Dx. JESSICA G47.33 327.93 - fax compliance download to [phone] 1 Device 0 - flash glucose sensor [...] once daily. 0 - blood sugar diagnostic ([employer] BLOOD GLUCOSE SYSTEM) test strip Use as [...] and LFTs appropriate for royal nued use. [place] law requires the collaborative practice agreement to [...] Abner, BCACP Primary Care Clinical Pharmacist [facility] cnov on 2019-11-21 CNOV Office Visit (PHMEWO) Normal 11-21-[address] [place] [address] Clinic LOVELY DEVI ([id number]) 1945 M [place] Date Time Provider Department ([id number]) 11/21/19 3:30 PM KEMI (PHARMACIST)DENITA During your visit today, we recorded the following informati on about you: Anshul Hancock 12/05/2019 9:55 PM Signed TELEPHONIC APPOINTMENT [place] law requires the collaborative practice agreement to [...] pharmacotherapy management appointment for diabetes. At 09/15 CYBER SECURITY ENGINEER?appt,?insulin NPH dose decreased pt was consulted to pharmacy due to increased hypoglycemia.?At last CYBER SECURITY ENGINEER visit ga bapentin was initiated and empiric treatment for UTI was started with nit rofurantoin monohydrate. At PharmD visit on , insulin lispro dose was decreased and patient was recommended to pursue basal/ bolus insulin pens through [employer] patient assistance. At last PCP appt, no [...] on CGM: 158 mg/dL Awaiting approval of [employer] insulin through PAP, Emili log and Basaglar. [...] of vessel, na tive or graft s/p MA in 1985 - Diverticulosis of colon (without [...] disease, with long-term current use of insulin ([facility]) 06/15/2017 - Unspecified essential hypertension ALLERGIES [...] G47.33 327.23 - fax compliance download to [phone] 1 Device 0 - flash glucose sensor [...] once daily. 0 - blood sugar diagnostic ([employer] BLOOD GLUCOSE SYSTEM) test strip Use as [...] TOUCH ULTRASO FT LANCETS) lancets Use with [employer] Glucometer as directed 100 Each 3 - [...] disease, with long-term current use of insulin ([facility]) - ICD9: 250.40, 585.3, V58.67, ICD10: [...] of new basal/bolus insu maribell pens from [facility].?Renal function and LFTs appropriate for continued use. [place] law requires the collaborative practice agreement to [...] switching to Basaglar an d Humalog through [employer] patient assistance, will replace current insulins. ? ACEi/ARB for renal protection:?yes, Scr and K+ ok to royal nue ? HbA1c: 01/14/2020 Patient is not scheduled to see PCP. Patient to follow up with PharmD, pt to call me by end of week with update on if approved by PAP. Patient verbalized understanding of instructions. Denita Thorpe, LisaD, BCACP Primary Care Clinical Pharmacist [facility] Referring Provider: DENIZ GARSIA [[id number]] Allergies As of Date: 11/21/2019 Noted Allergy Reaction MORPHINE 02/28/2005 ROCEPHIN (CEFTRIAXONE SODIUM) 06/20/2014 14 - Other: See Com ments Comments: Hot flashes; redness to skin Date Reviewed: 10/27/2019 Reviewed by: Linwood ([facility]) JAZZY Carpenter - Fully Assessed Reason for [...] on 0 yoandy on 2019-11-09 CNPN Telephone ([facility]) Normal 11-09-2019 [place] [facility] LOVELY DEVI ([id number]) 1945 [facility] Time Provider Department ([id number]) 11/09/19 BLOSSOM (PHARMACIST)BRIJESH During your visit today, we recorded the following informati on about you: ANSHUL SEBASTIAN 11/09/2019 9:42 AM Signed [facility] Referring provider: No [...] Pharmacy Anticoagulation Clinic Pharmacy Anticoagulation Clinic Pager: [phone] Description Patient has 3 mg tablets of warfarin. Patient takes in the m orning. . Allergies As of Date: 11/09/2019 Noted Allergy Reaction MORPHINE 02/28/2005 ROCEPHIN (CEFTRIAXONE SODIUM) 06/20/2014 14 - Other: See Com ments Comments: Hot flashes; redness to skin Date Reviewed: 10/27/2019 Reviewed by: Linwood ([facility]) JAZZY Carpenter - Fully Assessed Reason for [...] on progress on 2019-10 PROGRESS HNO ID: [id number] Normal 11-04-2019 [facility] Author: Denita Thorpe (Pharmacist) [place] ([id number]) Service: ? Author Type: Pharmacist Type: Progress Notes Filed: 11/15/2019 9:14 AM Note Text: TELEPHONIC APPOINTMENT [place] law requires the collaborative practice agreement to [...] manage ment appointment for diabetes. At 09/15 CYBER SECURITY ENGINEER appt, insulin NPH dose decreased pt was consulted to pharmacy due to increased hypoglycemia. At last CYBER SECURITY ENGINEER visit gabapentin was initiated and empiric treatment for UTI was s tarted with nitrofurantoin monohydrate. At last PharmD visit on , insulin lispro dose was decreased and patient was recommended to pur funmilayo basal/bolus insulin pens through [facility] patient assista nce. At last PCP [...] Allegramart. States he has not heard from [employer] patient assistance program yet about supply. States [...] ? Adherence: denies missed doses. ? Pharmacy: [facility] ? Rx coverage: Medicare ? Affordability: Gutierrez of brand name insulins is costly on i nsurance, on Relion brand insulin vials ? Diabetes supplies: [employer] ? 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 Esophageal Reflux Benign Neoplasm of Colon Dermatophytosis of Nail Atrial Fibrillation ([facility]) Anticoagulated On Coumadin Class 2 Severe Obesity Due to Excess Calories With Serious C omorbidity and Body Mass Index (Bmi) of 38.0 to 38.9 in Adult ([facility]) Stasis Dermatitis of Both Legs Foot Callus Subsequent Non-St Elevation (Nstemi) Myocardial Infarction W ithin 4 Weeks of Initial Infarction ([facility]) Syncope Hyperlipidemia Ldl Goal <100 Ashd (Arteriosclerotic Heart Disease) Neurocardiogenic Syncope 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 , With Long-Term Current Use of Insulin (Hcc) Facet Arthritis of Lumbar Region Adenopathy Atrial Flutter ([facility]) Balanitis Coronary Angioplasty Status Elevated [...] of vessel, na tive or graft s/p MA in 1985 - Diverticulosis of colon (without [...] ventricular tachycardia (HCC) - Snoring - Stroke ([facility]) - Tinea of nail 01/13/2011 - Type 2 diabetes mellitus with stage 3 chronic kidney disea se, with long-term current use of insulin ([facility]) 06/15/2017 - Unspecified essential hypertension ALLERGIES [...] G47.33 327.23 - fax compliance download to [phone] 1 Device 0 - flash glucose sensor [...] once daily. 0 - blood sugar diagnostic ([employer] BLOOD GLUCOSE SYSTEM) test strip Use as [...] duration of action. Patient assistance forms for [employer] have been fazed and awaiting approval. Renal function and LFTs appropriate for c ontinued use. [place] law requires the collaborative practice agreement to [...] for switching to Basaglar and Humalog th [facility] patient assistance ? ACEi/ARB for renal protection: yes, Scr and K+ ok to royal nue ? HbA1c: 01/14/2020 ? Patient is not scheduled to see PCP. Patient to follow up with PharmD on 11/21/2019. Patient verbalized understanding of instructions. Denita Thorpe, LisaD Primary Care Clinical Pharmacist [facility] yoandy on 2019-11-04 CNPN Telephone (PHMEWO) Normal 11-04-2019 [place] [facility] LOVELY DEVI ([id number]) 1945 M [place] Date Time Provider Department ([id number]) 11/04/19 KEMI (PHARMACIST)DENITA During your visit today, [...] PharmD, BCACP Primary Care Clinical Pharmacist [facility] Allergies As of Date: 11/04/2019 Noted Allergy Reaction MORPHINE 02/28/2005 ROCEPHIN (CEFTRIAXONE SODIUM) 06/20/2014 14 - Other: See Com ments Comments: Hot flashes; redness to skin Date Reviewed: 10/27/2019 Reviewed by: Linwood ([facility]) JAZZY Carpenter - Fully Assessed Reason for Visit: Diabetes [34] Cmt: Medication recommendations Visit Diagnosis:Type [address] 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, with long-term current use of insulin ([facility]) [E11.22, N18.3, Z79.4] Order(s):insulin regular human [...] mouth once ajay * LANCETS Use with [employer] Glucometer * ASPIRIN 81 MG TABLET Take [...] (PHARMACIST)DENITA on CNPN Telephone (NICOLEPWS) Normal 11-04-2019 [place] [facility] [facility] LOVELY DEVI ([id number]) 1945 M [place] Date Time Provider Department ([id number]) 11/04/19 MORGAN VALDEZ III During your visit today, we recorded the following informati on about you: Kaitlin King LPN 11/04/2019 3:29 PM Signed Melissa from [facility] Health calling for recert orders, 2 visit s weekly for 9 weeks for wound care. Please advise Alex Genao MD 11/07/2019 2:39 PM Signed Ok to vp cardiovascular verbal ok for re-cert. Dante Chavez Ma 11/07/2019 3:18 PM Signed TC to Melissa - Detailed message left on confidential voicemail . Dante Chavez Ma Allergies As of Date: 11/04/2019 Noted Allergy Reaction MORPHINE 02/28/2005 ROCEPHIN (CEFTRIAXONE SODIUM) 06/20/2014 14 - Other: See Com ments Comments: Hot flashes; redness to skin Date Reviewed: 10/27/2019 Reviewed by: Linwood ([facility]) JAZZY Carpenter - Fully Assessed Reason for [...] 2019-11-04 CNOV Office Visit (PHMEWO) Normal 11-04-[address] [place] [address] [facility] LOVELY DEVI ([id number]) 1945 [facility] Date Time Provider Department ([id number]) 11/04/19 10:30 AM KEMI (PHARMACIST)[facility] During your visit today, we recorded the following informati on about you: Anshul Hancock 11/15/2019 9:14 AM Signed TELEPHONIC APPOINTMENT [place] law requires the collaborative practice agreement to [...] pharmacotherapy management appointment for diabetes. At 09/15 CYBER SECURITY ENGINEER appt, insulin NPH dose decreased pt was consulted to pharmacy due to increased hypoglycemia. At last CYBER SECURITY ENGINEER visit ga bapentin was initiated and empiric treatment for UTI was started with nit rofurantoin monohydrate. At last PharmD visit on , insulin lispr o dose was decreased and patient was recommended to pursue basal/bolus insulin pens through [facility] patient assistance. At last PCP appt, no medication changes made but patient was encouraged to watch carbohydrates in diet and exercise regularly. INTERIM HISTORY: States DM first diagnosed at least >10 years ago. He used to be on Lantus and Humalog but those were expensive so he has switched to insulin NPH and insulin R, Relion [facility] States he has not heard from [facility] patient assistance program yet about supply. [...] ? Adherence: denies missed doses. ? Pharmacy: [facility] ? Rx coverage: Medicare ? 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 With Stage 3 Chronic Kidney D isease, With Long-Term Current Use of Insulin ([facility]) Facet Arthritis of Lumbar Region Adenopathy Atrial Flutter ([facility]) Balanitis Coronary Angioplasty Status Elevated [...] of vessel, na tive or graft s/p MA in 1985 - Diverticulosis of colon (without [...] ventricular tachycardia (HCC) - Snoring - Stroke ([facility]) - Tinea of nail 01/13/2011 - Type 2 diabetes mellitus with st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, with long-term current use of insulin ([facility]) 06/15/2017 - Unspecified essential hypertension ALLERGIES [...] G47.33 327.23 - fax compliance download to [phone] 1 Device 0 - flash glucose sensor [...] once daily. 0 - blood sugar diagnostic ([employer] BLOOD GLUCOSE SYSTEM) test strip Use as [...] TOUCH ULTRASO FT LANCETS) lancets Use with [employer] Glucometer as directed 100 Each 3 - [...] disease, with long-term current use of insulin ([facility]) - ICD9: 250.40, 585.3, V58.67, ICD10: [...] of actio n. Patient assistance forms for [employer] have been fazed and aw aiting approval. Renal function and LFTs appropriate for continued use. [place] law requires the collaborative practice agreement to [...] switching to Basaglar an d Humalog through [employer] patient assistance ? ACEi/ARB for renal protection: yes, Scr and K+ ok to royal nue ? HbA1c: 01/14/2020 ? Patient is not scheduled to see PCP. Patient to follow up with PharmD on 11/21/2019. Patient verbalized understanding of instructions. Denita Thorpe, PharmD Primary Care Clinical Pharmacist [facility] Referring Provider: DENIZ GARSIA [[id number]] Allergies As of Date: 11/04/2019 Noted Allergy Reaction MORPHINE 02/28/2005 ROCEPHIN (CEFTRIAXONE SODIUM) 06/20/2014 14 - Other: See Com ments Comments: Hot flashes; redness to skin Date Reviewed: 10/27/2019 Reviewed by: Linwood ([facility]) JAZZY Carpenter - Fully Assessed Reason for Visit: Allied Health Visit [5] Cmt: DM Primary Visit Diagnosis:Type 2 diabetes mellitus with st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, with long-term current use of insulin ([facility]) [E11.22, N18.3, Z79.4] Prescriptions as of [...] mouth once ajay * LANCETS Use with [employer]pa [employer]uch Glucometer * ASPIRIN 81 MG TABLET Take [...] on progress on 2019-09 PROGRESS HNO ID: [id number] Normal 10-27-2019 [facility] Author: Morgan Valdez III [place] ([id number]) Service: ? Author Type: Physician Type: Progress [...] c ontinue present medications 4. seen at [facility] in August with chest pain and treated [...] G47.33 327.23 - fax compliance download to [phone] - flash glucose sensor (FREESTYLE ANITRA 14 [...] mouth once daily. - blood sugar diagnostic (T[employer] BLOOD GLUCOSE SYSTEM) test strip Use as [...] of vessel, na tive or graft s/p MA in 1985 - Diverticulosis of colon (without [...] care at wound center follow up with agency sales development associate follow up with FEDERICO Benítez MD on 2019-10-27 CNOV Office Visit (FAMPWS) Normal 10-27-19 [place] [facility] LOVELY DEVI ([id number]) 1945 M [place] Date Time Provider Department ([id number]) 10/27/19 8:40 AM MORGAN VALDEZ III During [...] and continue present medications 4. seen at [facility] in August with chest pain and treated for cellulitis in ICU. Still having some chest pain, constant aching not clearly worse wi th walking but seems to resolve completely with NTG. To see bed worker to day. 5. JESSICA--tries to use CPAP [...] G47.33 327.23 - fax compliance download to [phone] - flash glucose sensor (FREESTYLE ANITRA 14 [...] TOUCH ULTRASO FT LANCETS) lancets Use with [employer] Glucometer as directed - Aspirin 81 mg [...] of vessel, na tive or graft s/p MA in 1985 - Diverticulosis of colon (without [...] care at wound center follow up with agency sales development associate follow up with FEDERICO Benítez MD, III MD 10/27/2019 9:16 AM Signed PLAN: healthy weight losing diet and regular exercise eat less sugar, bread, potato, pasta, rice, corn, corn syrup, saturated fats recheck HbA1c 3 mos increase gabapentin 900 mg three times/day for nerve pain continue wound care at wound center follow up with agency sales development associate follow up with Seven Valdez III MD Referring Provider: MORGAN VALDEZ III [[id number]] Allergies As of Date: 10/27/2019 Noted Allergy Reaction MORPHINE 02/28/2005 ROCEPHIN (CEFTRIAXONE SODIUM) 06/20/2014 14 - Other: See Com ments Comments: Hot flashes; redness to skin Date Reviewed: 10/27/2019 Reviewed by: Linwood (Bag Machine Tender) JAZZY Carpenter - Fully Assessed Reason for Visit: 6 Month Exam [189] Primary Visit Diagnosis:Type 2 diabetes mellitus with diabetic neuropathy, with long-term current use of insulin ([facility]) [E11.40, Z79.4] Other Visit Diagnoses:Type 2 diabetes mellitus with st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, with long-term current use of insulin ([facility]) [E11.22, N18.3, Z79.4] Ischemic cardiomyopathy [I25.5] ASHD (arteriosclerotic heart disease) [I25.10] Hyperlipidemia LDL goal <100 [E78.5] Stasis dermatitis of both legs [I87.2] Essential hypertension [I10] JESSICA (obstructive sleep apnea) [G47.33] Order(s):HGB A1C [GIQZQ7Y] Order #: [id number] FUTURE gabapentin (NEURONTIN) 300 mg capsuleTake 3 [...] care at wound center follow up with agency sales development associate follow up with Seven Valdez III MD [...] on 10/27/19 cnpn on 2019-10-26 CNPN Telephone ([facility]) Normal 10-26-2019 [facility] LOVELY DEVI ([id number]) [address] [facility] Time Provider Department ([id number]) 10/26/19 BLOSSOM (PHARMACIST)BRIJESH During your visit today, we recorded the following informati on about you: ANSHUL SEBASTIAN 10/26/2019 4:37 PM Signed Patient was due to test INR today will continue to monitor f or results. Joleen Cerrato, PharmD Pharmacy Anticoagulation Clinic ANSHUL COLIN 10/27/2019 9:42 AM Signed [facility] Lovely Devi is a 74 year old year old male patient being evaluated today for anticoagulation Telemanagement visit. Patient is currently on the following anticoagulant: Warfarin Labs PT INR (no units) Date Value 11/26/2018 Test sent to [facility]. 10/16/2017 1.8 01/16/2017 Test sent to [facility]. INR (POCT) (no units) Date Value 02/21/2019 [...] information and advised to call PAC at [phone] if any questions or changes to report. PRIYANKA BAUER PHARMACIST Clinical Pharmacist, Pharmacy Anticoagulation Clinic Pharmacy Anticoagulation Clinic Pager: [phone] Allergies As of Date: 10/26/2019 Noted Allergy Reaction MORPHINE 02/28/2005 ROCEPHIN (CEFTRIAXONE SODIUM) 06/20/2014 14 - Other: See Com ments Comments: Hot flashes; redness to skin Date Reviewed: 10/06/2019 Reviewed by: Kath (Dnp.Music Rehabilitation Therapist) SHANELLE Nielsen.ELBA - Fully Assesse d Reason [...] on 2019-10-24 CNPN Telephone (PHMEWO) Normal 10-24-2019 [place] [facility] LOVELY DEVI ([id number]) 1945 M [place] Date Time Provider Department ([id number]) 10/24/19 KEMI (PHARMACIST)DENITA During your visit today, we recorded the following informati on about you: Anshul Hancock 10/24/2019 9:38 AM Signed Received patient's completed patient section of the [employer] res PAP application. Completed prescriber section and wi provider to PCP for review and signature of orders. Medications pursuing through [employer] PAP: ? Basaglar (to replace insulin NPH) ? Humalog (to replace insulin R) Once PCP sign orders, ok to fax to [employer] ( ). Please place in pharmacy mailbox for record keeping and follow up. Thanks! Denita Thorpe PharmD Primary Care Clinical Pharmacist [facility] Linwood Carpenter CMA, MA 10/24/2019 10:19 AM Signed Forms placed on PCP's desk. AUDI Rowan III MD 10/24/2019 1:10 PM Signed form has been signed FEDERICO Alatorre MD, CMA, [place] 10/24/2019 1:47 PM Signed Form faxed and placed in pharmacist mail slot. Linwood Carpenter CMA Allergies As of Date: 10/24/2019 Noted Allergy Reaction MORPHINE 02/28/2005 ROCEPHIN (CEFTRIAXONE SODIUM) 06/20/2014 14 - Other: See Com ments Comments: Hot flashes; redness to skin Date Reviewed: 10/06/2019 Reviewed by: Kath (Dnp.Music Rehabilitation Therapist) SHANELLE Nielsen.CYBER SECURITY ENGINEER - Fully Assesse d Reason for Visit: Patient Assistance [0601] Cmt: Humalog and Basaglar Prescriptions as of [...] on 2019-10-17 CNPN Telephone (FAMPWS) Normal 10-17-2019 [facility] LOVELY DEVI ([id number]) 1945 [facility] Date Time Provider Department ([id number]) 10/17/19 MORGAN VALDEZ III FAMPWS During your visit today, we recorded the following informati on about you: Cindi Eastman LPN 10/17/2019 3:27 PM Signed Melany with [facility] called and needed c larification on Insulin [...] 25 Hydroxy 24.5 31.0-80.0 ng/mL Low 0 [facility] (46218) Comment: Result Comment: Classificati on of 25 [place] Vitamin D status: Insufficiency/Moderate Defic iency: < or = 30 ng/mL Sufficiency/Optimal Levels: 31 to 80 ng/mL Toxicity: > 100 ng/mL Test performed by chemilumin escent immunoassay. Performed By: #### HBA1C, CM P, LIPB, VITD ####[facility] [address] [place], [place] [phone] lipid panel, basic on 2019-10-14 Cholesterol [Mass/Vol] 123 <200 mg/dL Normal 020 [facility] (73510) Comment: Result Comment: <200 mg/dL, Desirable 200-239 mg/dL, Borderline hi gh >239 mg/dL, High Performed By: #### HBA1C, CM P, LIPB, VITD ####[facility] [address] [place], [place] [phone] Cholesterol in HDL [Mass/Vol] 35 >39 mg/dL Low 10-14-2019 [facility] (16209) Comment: Result Comment: 40-59 mg/dL, Acceptable >59 mg/dL, High: Negative ri sk factor for coronary heart disease <40 mg/dL, Low: Positive ris k factor for coronary heart disease Performed By: #### HBA1C, CM P, LIPB, VITD ####[facility] [address] [place], [place] [phone] Cholesterol in LDL 53 <100 mg/dL Normal 10-14-2019 [facility] [Mass/Vol] [place] ([id number]) Comment: Result Comment: <100 mg/dL, Optimal 100-129 mg/dL, Near optimal/ above optimal 130-159 mg/dL, Borderline hi gh 160-189 mg/dL, High >189 mg/dL, Very high Secondary prevention optimal LDL Cholesterol levels are recommended to be < 70 mg/dL Performed By: #### HBA1C, CM P, LIPB, VITD ####[facility] [place], [place] [phone] Fasting Time 12 hrs Normal 10-14-2019 [facility] (51825) Comment: Performed By: #### HBA1C, CM P, LIPB, VITD ####[place] [address] [place], [place] [phone] LDL:HDL Ratio 1.51 <2.54 Normal 10-14-2019 [facility] (28728) Comment: Result Comment: Reference: 1. National Cholesterol Educ ation Program ATP III Guideline At-A-Glance Quick Desk Reference: National Heart, Lung, and Blood [place]. National Institutes of Health. 2001: NIH Publication No. 01-3305. 2. An International Atherosc lerosis Society position paper: global recommendations for the management of dyslipidemia: executive summary, Atherosclerosis. 2014: 232(2):410-413. Performed By: #### HBA1C, CM P, LIPB, VITD ####[facility] [address] [place], [place] [phone] Non HDL Cholesterol 88 <130 mg/dL Normal 10-14-2019 [facility] (12409) Comment: Result Comment: <130 mg/dL, Optimal 130-159 mg/dL, Near optimal/ above optimal 160-189 mg/dL, Borderline hi gh 190-219 mg/dL, High >219 mg/dL, Very high Secondary prevention optimal non HDL Cholesterol levels are recommended to be < 100 mg/dL Performed By: #### HBA1C, CM P, LIPB, VITD ####[facility] [address] [facility], [place] [phone] TC:HDL Ratio 3.51 <5.10 Normal 10-14-2019 [facility] (18575) Comment: Performed By: #### HBA1C, CM P, LIPB, VITD ####[place] [address] [place], [place] [phone] Triglyceride [Mass/Vol] 177 <150 mg/dL High 2019 [facility] (99655) Comment: Result Comment: <150 mg/dL, Normal 150-199 mg/dL, Borderline hi gh 200-499 mg/dL, High >499 mg/dL, Very high Performed By: #### HBA1C, CM P, LIPB, VITD ####[place] [address] [place], [place] [phone] VLDL Cholesterol 35 <30 mg/dL High 10-14-2019 [facility] (79857) Comment: Performed By: #### HBA1C, CM P, LIPB, VITD ####[place] [address] [place], [place] [phone] hemoglobin a1c on 2 HbA1c (Bld) [Mass fraction] 171 mg/dL Normal [facility] (00738) Comment: Result Comment: eAG: (Estima devin average glucose) is a calculated value from HgbA1c and is construction sales representative of the average blood glucose level in the last 2-3 month period. Performed By: #### HBA1C, CM P, LIPB, VITD ####[place] [address] [place], [place] [phone] HbA1c (Bld) [Mass fraction] 7.6 4.3-5.6 % High [facility] (69593) Comment: Result Comment: [place] Dominique betes Association guidelines indicate that patients with HgbA1c in the range 5.7-6.4% are at increased risk for development of diabetes, and intervention by lifestyle modification may be beneficial. HgbA1c greater o r equal to 6.5% is considered diagnostic of diabetes. Performed By: #### HBA1C, CM P, LIPB, VITD ####[facility] [address] [place] [phone] comp metabolic panel on 2019-10-14 Albumin [Mass/Vol] 4.1 3.9-4.9 g/dL Normal 10-14-2019 [facility] (68629) Comment: Performed By: #### HBA1C, CM P, LIPB, VITD ####[facility] [address] [place] [phone] ALP [Catalytic activity/Vol] 55 38-113 U/L Normal 0 10-14-2019 [facility] (78863) Comment: Performed By: #### HBA1C, CM P, LIPB, VITD ####[place] [address] [place] [phone] ALT [Catalytic activity/Vol] 26 10-54 U/L Normal 0 10-14-2019 [facility] (57724) Comment: Performed By: #### HBA1C, CM P, LIPB, VITD ####[place] [address] [place], [place] [phone] Anion gap [Moles/Vol] 10 9-18 mmol/L Normal 10-14-19 [facility] (51305) Comment: Performed By: #### HBA1C, CM P, LIPB, VITD ####[facility] [address] [place] [phone] AST [Catalytic activity/Vol] 23 14-40 U/L Normal 0 10-14-2019 [facility] (35065) Comment: Performed By: #### HBA1C, CM P, LIPB, VITD ####[facility] [address] [place], [place] [phone] Bilirubin [Mass/Vol] 0.4 0.2-1.3 mg/dL Normal 0 [facility] (19888) Comment: Performed By: #### HBA1C, CM P, LIPB, VITD ####[facility] [address] [place], [place] [phone] Calcium [Mass/Vol] 9.0 8.5-10.2 mg/dL Normal 10-14-2019 [facility] (07841) Comment: Performed By: #### HBA1C, CM P, LIPB, VITD ####[facility] [address] [place], [place] [phone] Chloride [Moles/Vol] 101 97-105 mmol/L Normal 0 [facility] (63593) Comment: Performed By: #### HBA1C, CM P, LIPB, VITD ####[place] [address] [place], [place] [phone] CO2 [Moles/Vol] 24 22-30 mmol/L Normal 10-14-2019 [facility] (28423) Comment: Performed By: #### HBA1C, CM P, LIPB, VITD ####[facility] [place], [place] [phone] Creatinine [Mass/Vol] 1.30 0.73-1.22 mg/dL High 10-14-19 20 [facility] (44289) Comment: Performed By: #### HBA1C, CM P, LIPB, VITD ####[facility] [address] [place], [place] [phone] eGFR- Amer. >60 Normal 10-14-2019 [facility] (49335) Comment: Performed By: #### HBA1C, CM P, LIPB, VITD ####[facility] [place], [place] [phone] GFR/1.73 sq M predicted among 54 . Normal 10-14-2019 [facility] non-blacks MDRD (S/P/Bld) [Vol (63187) rate/Area] Comment: Result Comment: eGFR (Estima devin [...] By: #### HBA1C, CM P, LIPB, VITD ####[facility] [address], [place] [phone] Glucose [Mass/Vol] 197 74-99 mg/dL High 10-14-2019 [facility] (47163) Comment: Result Comment: The [place] Diabetes Association (ADA) provides guidance for cutoff [...] for diagnosis of diabetes. Reference: Standards of [facility] Care in Diabetes 2016, [place] Diabetes Association. Diabetes Care. 2016.39(Suppl 1). Performed By: #### HBA1C, CM P, LIPB, VITD ####[facility] [address] [place], [place] [phone] Potassium [Moles/Vol] 4.6 3.7-5.1 mmol/L Normal 10-14-19 [facility] (65996) Comment: Performed By: #### HBA1C, CM P, LIPB, VITD ####[facility] [address] [place], [place] [phone] Protein [Mass/Vol] 6.0 6.3-8.0 g/dL Low 10-14-2019 [facility] (65445) Comment: Performed By: #### HBA1C, CM P, LIPB, VITD ####[facility] [address] [place], [place] [phone] Sodium [Moles/Vol] 135 136-144 mmol/L Low 10-14-2019 [facility] (50527) Comment: Performed By: #### HBA1C, CM P, LIPB, VITD ####[facility] [address] [place], [place] [phone] Urea nitrogen [Mass/Vol] 27 9-24 mg/dL High 10-13 [facility] (60605) Comment: Performed By: #### HBA1C, CM P, LIPB, VITD ####[facility] [place], [place] [phone] albumin/creat ratio on 2019-10-14 Albumin Urine Random <12.0 Normal 0 [facility] (24291) Comment: Performed By: #### UACR #### [facility], [place] [phone] Albumin/Creat Ratio Not calculated <30 Normal 10-13 [facility] (28055) Comment: Performed By: #### UACR #### [facility] [address] [place], [place] [phone] Creatinine,Urine,Ran 63.4 20-300 mg/dL Normal 0 [facility] (94802) Comment: Performed By: #### UACR #### [facility] [address], [place] [phone] progress on 2019-09 PROGRESS HNO ID: [id number] Normal 10-12-2019 [facility] Author: Denita Thorpe (Pharmacist) [place] ([id number]) Service: ? Author Type: Pharmacist Type: Progress Notes Filed: 10/13/2019 5:40 PM Note Text: [place] law requires the collaborative practice agreement to [...] is presenting today for initial pharmacotherapy [facility] appointment for diabetes. At 09/15 CYBER SECURITY ENGINEER appt, insulin NPH dose decreased pt was consulted to pharmacy due to increased hypoglycemia. At last CYBER SECURITY ENGINEER visit gabapentin was initiated and empiric treatment [...] really watch what he eats. He has [employer] CGM. Does not have [employer] accounts , states he is not too [...] ? Adherence: denies missed doses. ? Pharmacy: [facility] ? Rx coverage: Medicare ? Affordability: Gutierrez of brand name insulins is costly on i nsurance, on Relion brand insulin vials ? Diabetes supplies: [employer] Anitra ACTIVE PROBLEM LIST Cardiomegaly Essential Hypertension [...] of vessel, na tive or graft s/p MA in 1985 - Diverticulosis of colon (without [...] G47.33 327.23 - fax compliance download to [phone] - flash glucose sensor (FREESTYLE ANITRA 14 [...] mouth once daily. - blood sugar diagnostic (Topsy Labs BLOOD GLUCOSE SYSTEM) test strip Use as [...] ase, with long-term current use of insulin ([facility]) - ICD9: 250.40, 585.3 , V58.67, [...] of a ction. Patient assistance forms for [employer] given to pt to pursue basal insulin. Renal function and LFTs appropriate for continued use. [place] law requires the collaborative practice agreement to [...] 11/03, to u pload CGM data on [employer] prior to appt with help from daughter. Patient verbalized understanding of instructions. Denita Thorpe, [place]ner Primary Care Clinical Pharmacist [facility] elban on 2019-10-12 CNPN Telephone (HASHRAV) Normal 10-12-2019 [facility] LOVELY DEVI ([id number]) 1945 M [place] Date Time Provider Department ([id number]) 10/12/19 BLOSSOM (PHARMACIST)SHARIF During your visit today, we recorded the following informati on about you: ANSHUL SEBASTIAN 10/12/2019 9:23 AM Signed [facility] Referring provider: No ref. provider found Lovelyguadalupe Devi is a 73 year old year old male patient being evaluated today for anticoagulation Telemanagement visit. Patient is currently on the following anticoagulant Warfarin Labs PT INR (no units) Date Value 11/26/2018 Test sent to [facility]. 10/16/2017 1.8 01/16/2017 Test sent to [facility]. INR (POCT) (no units) Date Value 02/21/2019 [...] Pharmacy Anticoagulation Clinic Pharmacy Anticoagulation Clinic Pager: [phone] Description Patient has 3 mg tablets of warfarin. Patient takes in the m orning. . Allergies As of Date: 10/12/2019 Noted Allergy Reaction MORPHINE 02/28/2005 ROCEPHIN (CEFTRIAXONE SODIUM) 06/20/2014 14 - Other: See Com ments Comments: Hot flashes; redness to skin Date Reviewed: 10/06/2019 Reviewed by: Kath (Faiza.Music Rehabilitation Therapist) Blaz, REHABILITATION TECHNICIAN.CYBER SECURITY ENGINEER - Fully Assesse d Reason for Visit: [...] mouth once ajay * LANCETS Use with Simpa Networksuch Glucometer * ASPIRIN 81 MG TABLET Take [...] fail*12/17/2018 Encounter Status:Closed by BLOSSMO (PHARMACIST)JOLEEN on cnov on 2019-10-12 CNOV Office Visit (PHMEWO) Normal 10-12-19 [facility] LOVELY DEVI ([id number]) 1945 M [place] Date Time Provider Department ([id number]) 10/12/19 3:00 PM KEMI (PHARMACIST)DENITA During your visit today, we recorded the following informati on about you: Anshul Hancock 10/13/2019 5:40 PM Signed [place] law requires the collaborative practice agreement to [...] pharmacotherapy management appointment for diabetes. At 09/15 [facility] appt, insulin NPH dose decreased pt was consulted to pharmacy due to increased hypoglycemia. At last [facility] visit ga bapentin was initiated and empiric treatment for UTI was started with nit rofurantoin monohydrate. INTERIM HISTORY: States DM first diagnosed at least >10 years ago. He used to be on Lantus and Humalog but those were expensive so he has switched to insulin NPH and insulin R, Relion brand vials from [employer]. Reports in the past having l ower BG in the 50s, states it does not happen often but when it does he usually needs to treat it twice to improve the blood sugar. Reports does not really watch what he eats. He has [employer] Anitra CGM. Does not hav e [employer] accounts, states he is not too tech [...] ? Adherence: denies missed doses. ? Pharmacy: [facility] ? Rx coverage: Medicare ? 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 With Stage 3 Chronic Kidney D isease, With Long-Term Current Use of Insulin ([facility]) Facet Arthritis of Lumbar Region [...] (arteriosclerotic heart disease) 02/19/2015 - Atrial fibrillation ([facility]) 07/03/2011 - Automatic implantable cardiac defibrillator in situ - Petit's esophagus with esophagitis 03/01/2015 - Benign neoplasm of colon - Chronic diarrhea 09/16/2011 - Coronary atherosclerosis of unspecified type of vessel, na tive or graft s/p MA in 1985 - Diverticulosis of colon (without [...] ventricular tachycardia (HCC) - Snoring - Stroke ([facility]) - Tinea of nail 01/13/2011 - Type 2 diabetes mellitus with st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, with long-term current use of insulin ([facility]) 06/15/2017 - Unspecified essential hypertension ALLERGIES [...] G47.33 327.23 - fax compliance download to [phone] - flash glucose sensor (FREESTYLE ANITRA 14 [...] mouth once daily. - blood sugar diagnostic (Topsy [employer] BLOOD GLUCOSE SYSTEM) test strip Use as [...] TOUCH ULTRASO FT LANCETS) lancets Use with [employer] Glucometer as directed - Aspirin 81 mg [...] disease, with long-term current use of insulin ([facility]) - ICD9: 250.40, 585.3, V58.67, ICD10: [...] on and LFTs appropriate for continued use. [place] law requires the collaborative practice agreement to be initiated by a physician in order to provide medication titration. [facility], pharmacy will only provide medication recommend [...] on 11/03, to upload CGM data on [employer] prior to appt with help from daughter. Patient verbalized understanding of instructions. Denita Thorpe PharmD Primary Care Clinical Pharmacist [facility] Anshul Hancock 10/12/2019 3:56 PM Addendum ? [...] replace insulin R) Referring Provider: DENIZ GARSIA [[id number]] Allergies As of Date: 10/12/2019 Noted Allergy Reaction MORPHINE 02/28/2005 ROCEPHIN (CEFTRIAXONE SODIUM) 06/20/2014 14 - Other: See Com ments Comments: Hot flashes; redness to skin Date Reviewed: 10/06/2019 Reviewed by: Kath (Dnp.Music Rehabilitation Therapist) SHANELLE Nielsen.ELBA - Fully Assesse d Reason [...] mouth once ajay * LANCETS Use with One[employer]IANS IMMEDIATE CAREuch Glucometer * ASPIRIN 81 MG TABLET Take [...] on progress on 2019-09 PROGRESS HNO ID: [id number] Normal 10-06-2019 [facility] Author: Kath (Faiza.Elba) SEFERINO Nielsen Amado ([id number]) Service: ? Author Type: Nurse Practitioner Type: Progress Notes Filed: 10/06/2019 3:42 PM Note Text: Chief Complaint Patient presents with: Hematuria: urine taken but home health 2 weeks ago Burning with urination HPI Lovely Devi is a 73 year old male who presents he re today for a several day history of urinary symptoms. This is an establis [facility] patient of Dr. Morgan Valdez III MD. This is a new patient to me. Patient was recently admitted a nd discharged from [facility] for cellulitis to right leg. He developed [...] but states it was discontinued by his [facility] medicine doctor. Past medical history, appointments, [...] of vessel, na tive or graft s/p MA in 1985 - Diverticulosis of colon (without [...] se, with long-term current use of insulin ([facility]) 06/15/2017 - Unspecified essential hypertension Previous Surgical History PAST SURGICAL HISTORY Procedure Laterality Date - COLONOSCOP W/ OR W/O [facility] SPEC 12/21/2017 Dr. Anthony-repeat 3 years-11/2020 - COLONOSCOPY W/BX 02/21/09 - EGD W/O OR W/BRUSH/WASH EGD - EGD W/O OR W/BRUSH/WASH 02/16/08 EGD inpt [facility] H-pylori negative - EGD W/O OR W/BRUSH/WASH 05/24/15 EGD - EGD W/O OR W/BRUSH/WASH 12/21/2017 Dr. Anthony-repeat 3 years-11/2020 - HEART CATHETERIZATION 12/15/2014 [facility] - see scanned documents - HEART SURGERY [...] G47.33 327.23 - fax compliance download to [phone] - flash glucose sensor (FREESTYLE ANITRA 14 [...] mouth once daily. - blood sugar diagnostic ([employer] BLOOD GLUCOSE SYSTEM) test strip Use as [...] Lacey Nguyen APN Student Kath Nielsen DNP, CYBER SECURITY ENGINEER This note was completed with Corventis dictation software. Note was reviewed for accuracy. There may be minor misspellings or gr ammar miscues with Corvent[employer] Dictation. Lacey Nguyen APN student from [facility] completed initial history and physical exam. I reviewed the note, examined the patient and concur with plan of care. [place] [id number] cnov on 2019-10-06 CNOV Office Visit (FAMPWS) Normal 10-06-[address] [place] [address] [facility] LOVELY DEVI ([id number]) 1945 [facility] Date Time Provider Department ([id number]) 10/06/19 1:40 PM KATH NIELSEN (FAIZA.ELBA) FAMPWS During your visit today, we recorded the following informati on about you: Temperature Pulse Respiration Blood pressure 98.4 degrees 65/minute 14/minute 128/70 Weight 118.8 kg Kath Nielsen DNP.ELBA, REHABILITATION TECHNICIAN.ELBA 10/06/2019 3:42 PM Signed Chief Complaint Patient [...] Patient was recently admitted and discharged from [facility] for cellulitis to right leg . He [...] of vessel, na tive or graft s/p MA in 1985 - Diverticulosis of colon (without [...] EGD W/O OR W/BRUSH/WASH 02/16/08 EGD inpt [facility] H-pylori negative - EGD W/O OR W/BRUSH/WASH 05/24/15 EGD - EGD W/O OR W/BRUSH/WASH 12/21/2017 Dr. Anthony-repeat 3 years-11/2020 - HEART CATHETERIZATION 12/15/2014 [facility] - see scanned documents - HEART SURGERY [...] G47.33 327.23 - fax compliance download to [phone] - flash glucose sensor (Integra TelecomSTYLE ANITRA 14 DAY SENSOR) kit 1 Each [...] mouth once daily. - blood sugar diagnostic (T[employer] BLOOD GLUCOSE SYSTEM) test strip Use as [...] TOUCH ULTRASO FT LANCETS) lancets Use with Simpa [employer]uch Glucometer as directed - Aspirin 81 mg [...] Lacey Nguyen APN Student Kath Nielsen, DNP, CYBER SECURITY ENGINEER This note was completed with Night Out software. Note was reviewed for accuracy. There may be minor misspellings or gramm ar miscues with Corvent[employer] Dictation. Lacey Nguyen APN student from [facility] completed initial history and physical exam. I reviewed the note, examined the patient and concur with plan of care. [place] [id number] Lacey Nguyen APN Student 10/06/2019 2:32 PM [...] For severe symptoms seek care at the [facility] ER. Plan of care, medicaiton side effects [...] skin Date Reviewed: 10/06/2019 Reviewed by: Kath (Faiza.Music Rehabilitation Therapist) SHANELLE Nielsen.CYBER SECURITY ENGINEER - Fully Assesse d Reason for Visit: Hematuria [335] Cmt: urine taken but home health 2 weeks ago Primary Visit Diagnosis:Dysuria [R30.0] Other Visit Diagnoses:Microscopic hematuria [R31.29] Type 2 diabetes mellitus with diabetic neuropathy, with long-term current use of insulin (HCC) [E11.40, Z79.4] Order(s):UA DIP, URINE (POC) [[id number]] Order #: [id number] ec. #:[id number] nitrofurantoin monohydrate and macrocrystal (MACROBID) 100 m [...] Recorded Encounter Status:Closed by KATH NIELSEN DNP CYBER SECURITY ENGINEER on 10/06/19 cnpn on 2019-09-28 [facility] Normal 09-28-2019 [facility] LOVELY DEVI ([id number]) 1945 M [facility] Date Time Provider Department ([id number]) 09/28/19 BLOSOSM (PHARMACIST)BRIJESH During your visit today, we recorded the following informati on about you: ANSHUL SEBASTIAN 09/28/2019 10:53 AM Signed [facility] Referring provider: No ref. provider found Lovelyguadalupe Ornelasalmitajenny is a 73 year old year old male patient being evaluated today for anticoagulation Telemanagement visit. Patient is currently on the following anticoagulant Warfarin Labs PT INR (no units) Date Value 11/26/2018 Test sent to [facility]. 10/16/2017 1.8 01/16/2017 Test sent to [facility]. INR (POCT) (no units) Date Value 02/21/2019 [...] Pharmacy Anticoagulation Clinic Pharmacy Anticoagulation Clinic Pager: [phone] Description Patient has 3 mg tablets of [...] fail*12/17/2018 Encounter Status:Closed by BLOSSOM (PHARMACIST)JOLEEN on elban on 2019-09-26 CNPN Telephone (FAMPWS) Normal 09-26-2019 [facility] LOVELY DEVI ([id number]) 1945 M [place] Date Time Provider Department ([id number]) 09/26/19 MORGAN VALDEZ III During your visit today, we recorded the following informati on about you: Cindi Eastman LPN 09/26/2019 11:56 AM Signed Melany with [facility] just left patient from a wound ch juan on his leg. He was complaining of blood in his underwear and painful urinatio n. Gathered urine samples. Looked good clear to pale. Call with verbal order t o PH: [phone]. She gathered enough urine to do the [...] LPN 09/27/2019 8:14 AM Signed Melany with [facility] is aski ng with verbage await urine results if this means provider is ok with uryinalysis. Call Melany with provider message. Jerilyn Valdez III MD 09/27/2019 8:36 AM Signed Yes?please obtain urinalysis FEDERICO Alatorre MD, CMA, [place] 09/27/2019 10:04 AM Signed Melany has been notified. Linwood Carpenter CMA Allergies As of Date: 09/26/2019 Noted Allergy Reaction MORPHINE 02/28/2005 ROCEPHIN (CEFTRIAXONE SODIUM) 06/20/2014 14 - Other: See Com ments Comments: Hot flashes; redness to skin Date Reviewed: 09/16/2019 Reviewed by: Deniz Garsia - Fully Assessed Reason for Visit: [facility] [Other] Prescriptions as of 09/26/2019 Sig: LATANOPROST [...] 09/27/19 progress on 2019-08 PROGRESS HNO ID: [id number] Normal 09-16-2019 [facility] Author: Deniz Garsia [place] ([id number]) Service: ? Author Type: Nurse Practitioner Type: Progress Notes Filed: 09/16/2019 2:19 PM Note Text: Chief Complaint Patient presents with: Hospital Follow Up HPI Lovely Devi is a 73 year old male who presents he re today for Hospital Discharge Follow up. ADM [facility] 09/04-09/08/2019 for CHF. Follow[address] with Dr. Perry [...] placed on Trazodone 50 mg at hs. [place] leg sx wer e related to CHF [...] after breakfast. He rep orts 7 day nAI=261, 14 day dLR=852, and 90 day eZL=051. He relates he d oes not feel [...] of vessel, na tive or graft s/p MA in 1985 - Diverticulosis of colon (without [...] Laterality Date - COLONOSCOP W/ OR W/O [facility] SPEC 12/21/2017 Dr. Anthony-repeat 3 years-11/2020 - COLONOSCOPY W/BX 02/21/09 - EGD W/O OR W/BRUSH/WASH EGD - EGD W/O OR W/BRUSH/WASH 02/16/08 EGD inpt [facility] H-pylori negative - EGD W/O OR W/BRUSH/WASH 05/24/15 EGD - EGD W/O OR W/BRUSH/WASH 12/21/2017 Dr. Anthony-repeat 3 years-11/2020 - HEART CATHETERIZATION 12/15/2014 [facility] - see scanned documents - HEART SURGERY [...] G47.33 327.23 - fax compliance download to [phone] - flash glucose sensor (FREESTYLE ANITRA 14 [...] mouth once daily. - blood sugar diagnostic (T[employer] BLOOD GLUCOSE SYSTEM) test strip Use as [...] of venous ulceration. Following with [facility]. 5. Stasis dermatitis with venous ulcer of [...] complication, with long-term current use of insulin ([facility]) - ICD9: 250.00, V58.6 7, ICD10: [...] TRAZODONE 50 MG TABLET Deniz Garsia, MSN REHABILITATION TECHNICIAN.CYBER SECURITY ENGINEER cnov on 2019-09-16 CNOV Office Visit (FAMPWS) Normal 09-16-19 [facility] LOVELY DEVI ([id number]) 1945 [facility] Date Time Provider Department ([id number]) 09/16/19 9:40 AM DENIZ GARSIA During your visit today, we recorded the following informati on about you: Temperature Pulse Respiration Blood pressure 97.9 degrees 68/minute 20/minute 122/70 Deniz Garsia, MSN REHABILITATION TECHNICIAN.CYBER SECURITY ENGINEER 09/16/2019 2:19 PM Signed Chief Complaint Patient presents with: Hospital Follow Up HPI Lovely Devi is a 73 year old male who presents he re today for Hospital Discharge Follow up. ADM [facility] 09/04- 020 for CHF. Follows with Dr. [...] placed on Trazodone 50 mg at hs. [place] le g sx were related to CHF [...] 82 after breakfast. He reports 7 day aGD=562, 14 day eBV=204, and 90 day vJZ=673. He relates he does not feel the [...] of vessel, na tive or graft s/p MA in 1985 - Diverticulosis of colon (without [...] disease, with long-term current use of insulin ([facility]) 06/15/2017 - Unspecified essential hypertension Previous Surgical History PAST SURGICAL HISTORY Procedure Laterality Date - COLONOSCOP W/ OR W/O [facility] SPEC 12/21/2017 Dr. Anthony-repeat 3 years-11/2020 - COLONOSCOPY W/BX 02/21/09 - EGD W/O OR W/BRUSH/WASH EGD - EGD W/O OR W/BRUSH/WASH 02/16/08 EGD inpt [facility] H-pylori negative - EGD W/O OR W/BRUSH/WASH 05/24/15 EGD - EGD W/O OR W/BRUSH/WASH 12/21/2017 Dr. Anthony-repeat 3 years-11/2020 - HEART CATHETERIZATION 12/15/2014 [facility] - see scanned documents - HEART SURGERY [...] G47.33 327.23 - fax compliance download to [phone] - flash glucose sensor (FREESTYLE ANITRA 14 [...] mouth once daily. - blood sugar diagnostic (T[employer] BLOOD GLUCOSE SYSTEM) test strip Use as [...] TOUCH ULTRASO FT LANCETS) lancets Use with Simpa Networksuch Glucometer as directed - Aspirin 81 mg [...] and diastolic CHF (con gestive heart failure) ([facility]) - ICD9: 428.43, 428.0, ICD10: I50.43 (primary diagnosis) -Stable, - Follow up with Cardiology as scheduled. 2. Type 2 diabetes mellitus with st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, with long-term current use of insulin ([facility]) - ICD9: 250.40, 585.3, V58.67, ICD10: [...] of venous ulceration. Following with [facility]. 5. Stasis dermatitis with venous ulcer of lower extremity du e to chronic peripheral venous hypertension ([facility]) - ICD9: 459.31, I CD10: I87.339, [...] n, with long-term current use of insulin ([facility]) - ICD9: 250.00, V58.67, ICD10: E11.9, [...] TRAZODONE 50 MG TABLET Deniz Garsia, MSN REHABILITATION TECHNICIAN.CYBER SECURITY ENGINEER Referring Provider: SELF [[id number]] Allergies As of Date: 09/16/2019 Noted Allergy Reaction MORPHINE 02/28/2005 ROCEPHIN (CEFTRIAXONE SODIUM) 06/20/2014 14 - Other: See Com ments Comments: Hot flashes; redness to skin Date Reviewed: 09/16/2019 Reviewed by: Deniz Garsia - Fully Assessed Reason for Visit: Hospital Follow Up [177] Primary Visit Diagnosis: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) ([facility]) [I50.43] Other Visit Diagnoses:Type 2 diabetes mellitus with st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, with long-term current use of insulin ([facility]) [E11.22, N18.3, Z79.4] Essential hypertension [I10] Cellulitis of right lower extremity [L03.115] Stasis 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 ([facility]) [I87.339, L97.909] Closed nondisplaced fracture of fifth metatarsal bone of left foot with routine healing, subsequent encounter [S92.878D] Controlled type 2 diabetes mellitus without complication, with long-term current use of insulin ([facility]) [E11.9, Z79.4] Vitamin D 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] Sleep difficulties [G47.9] Order(s):insulin lispro (HUMALOG U-100 INSULIN) 100 unit/mL units with breakfast, 20 units at lunch, [...] TO AMBULATORY CLINIC PHARMACY [[id number]] Order #: [id number]: 1 VITAMIN D 25 HYDROXY [SQVITD] Order #: [id number] FUTURE Cholecalciferol, Vitamin D3, 50 mcg (2,000 [...] E-Cancel Cosign accepted by MORGAN VALDEZ III, MD[[id number]] on 06/25/19 17 6:04 PM Melatonin 5 [...] on 2019-09-14 CNPN Telephone (FAMPWS) Normal 09-14-2019 [facility] LOVELY DEVI ([id number]) 1945 M [place] Date Time Provider Department ([id number]) 09/14/19 [facility] VALDEZ III [facility] During your visit today, we recorded the following informati on about you: Kaitlin King LPN 09/14/2019 4:10 PM Signed Manda from [facility] Home health calling did visit one time caroli christy delgado for OT patient doing well educated suing bo, famil y will follow through and get one for his use. Deniz Garsia, MSN REHABILITATION TECHNICIAN.CYBER SECURITY ENGINEER 09/15/2019 7:26 AM Signed Noted. Deniz Garsia, MSN REHABILITATION TECHNICIAN.CYBER SECURITY ENGINEER Allergies As of Date: 09/14/2019 Noted Allergy Reaction MORPHINE 02/28/2005 ROCEPHIN (CEFTRIAXONE SODIUM) 06/20/2014 14 - Other: See Com ments Comments: Hot flashes; redness to skin Date Reviewed: 04/28/2019 Reviewed by: Linwood ([facility]) JAZZY Carpenter - Fully Assessed Reason for [...] mouth once ajay * LANCETS Use with Simpa Networksuch Glucometer * ASPIRIN 81 MG TABLET Take [...] 09/15/19 progress on 2019-08 PROGRESS HNO ID: [id number] Normal 09-12-2019 [facility] Author: Jeffy Fontenot ([facility] ([id number]) Service: ? Author Type: Registered Nurse Type: Progress Notes Filed: 09/12/2019 3:17 PM Note Text: HIGH RISK CHRONIC DISEASE MONITORING Provider Action/FYI: Spk with Pt who noted was Admitted to [facility] 09/04-09/08/19 for Dx : CHF Pt has a scheduled f/u with Cardiology Dr. Perry 10/07/19. Pt has Appt 09/16/19 with Maryellen Garsia CNP Pt has active My Chart and is interested in Agricultural Equipment Salesperson Contact made with patient: Yes Patient identified by name and . Discussed care with patient Hi my name is Corie Bardales, DRAGAN and I am calling from [facility] on behalf of your PCP, [...] to speak with a social work steam generating powerplant mechanic to help give you support for any of these needs? No It can be normal to feel anxious or down during a time like this. Would you like to talk to a mental health professional about how y ou have been feeling? No ACTION TAKEN: No action taken ROBOTICS SYSTEMS ENGINEER: Patient MyChart status is: Active account Thank [...] dipti l be sent to you via Hiddenbed once a week for the next few weeks to months . Oleryt is the best way for us to [...] questionnaire will come to you through your Hiddenbed acco unt and will replace the need for us to call you each week. May I sign yo u up for this? Yes Great! I've set you up to receive the weekly questionnaire. In the meantime, if you have concerns in between our calls, please call your PCP's office right away. Thank you. ACTION TAKEN: Signed patient up for weekly Agricultural Equipment Salesperson questionnaire - Entered next patient outreach date [...] CNPTOUTREACH Patient Outreach (FAMPWS) Normal 0 09-12-2019 [place] [facility] LOVELY DEVI ([id number]) 1945 [facility] Date Time Provider Department ([id number]) 09/12/19 JEFFY FONTENOT (RN) FAMPWS During your visit today, we recorded the following informati on about you: Corie Bardales RN 09/12/2019 3:17 PM Signed HIGH RISK CHRONIC DISEASE MONITORING Provider Action/FYI: Spk with Pt who noted was Admitted to [facility] 09/04-09/08/19 for Dx : CHF Pt has a scheduled f/u with Cardiology Dr. Perry 10/07/19. Pt has Appt 09/16/19 with Maryellen Garsia CNP Pt has active My Chart and is interested in Agricultural Equipment Salesperson Contact made with patient: Yes Patient identified by name and . Discussed care with patient Hi my name is Corie Bardales RN and I am calling from the [facility] on behalf of your PCP, Morgan Valdez, [...] to speak with a social work steam generating powerplant mechanic to help give you support for any of these needs? No It can be normal to feel anxious or down during a time lik e this. Would you like to talk to a mental health professional abo ut how you have been feeling? No ACTION TAKEN: No action taken ROBOTICS SYSTEMS ENGINEER: Patient Rodneyhart status is: Active account Thank you for taking the time to talk with me to day. We want to work with you to ensure that we are keeping your medical conditions well-controlled and to keep you healthy and out of the doctor's office or [facility]. Our team would like to stay connected with you to make sure you are feeling well. I am inviting you to complete a short questionnaire th at will be sent to you via Hiddenbed once a week for the next few weeks t o months. Hiddenbed is the best way for us to [...] questionnaire will come to you through your Hiddenbed account and will re place the need for us to call you each week. May I sign you up for this? Yes Great! I've set you up to receive the weekly questionn shemar. In the meantime, if you have concerns in between our call s, please call your PCP's office right away. Thank you. ACTION TAKEN: Signed patient up for weekly Agricultural Equipment Salesperson questionnaire - Entered next patient outreach date [...] skin Date Reviewed: 04/28/2019 Reviewed by: Linwood ([facility]) JAZZY Carpenter - Fully Assessed Reason for [...] Encounter Status:Closed by CORIE BARDALES [facility]) Normal 09-09-2019 [place] [facility] LOVELY DEVI ([id number]) 1945 [facility] Date Time Provider Department ([id number]) 09/09/19 [facility] During your visit today, we recorded the following informati on about you: Tasha Chan RN 09/09/2019 1:04 PM [facility] one[facility] P[facility]: nursing will see patient 2 x's week for 9 weeks, for wound care, medication education, and dis ease process teaching. Reports his discharge instructions from hospital, have 2 meds on list, patient reports he hasn't taken in a long time: colestid 1 g bid, and tricor [address] Perry is his bed worker. Morgan Valdez III MD 09/09/2019 5:58 PM Signed Noted Morgan Valdez III, , FAAFP Allergies As of Date: 09/09/2019 Noted Allergy Reaction MORPHINE 02/28/2005 ROCEPHIN (CEFTRIAXONE SODIUM) 06/20/2014 14 - Other: See Com ments Comments: Hot flashes; redness to skin Date Reviewed: 04/28/2019 Reviewed by: Linwood ([facility]) JAZZY Carpenter - Fully Assessed Reason for Visit: [facility] POC [Other] Prescriptions as of 09/09/2019 Sig: [...] mouth once ajay * LANCETS Use with Simpa Networksuch Glucometer * ASPIRIN 81 MG TABLET Take [...] III, MD on 09/09/19 yoandy on 2019-09-08 [facility]) Normal 09-08-2019 [facility] LOVELY DEVI ([id number]) 1945 M [place] Date Time Provider Department ([id number]) 09/08/19 MORGAN VALDEZ III During your visit today, we recorded the following informati on about you: Cindi Eastman LPN 09/08/2019 2:43 PM Signed Melany with [facility] calling to let you know cammie rodriguez being d/c from [facility] today and needs to be followed with nursing, OT and PT. Asking i f you will follow and sign. Please advise Melany. Cindi Valdez III MD 09/08/2019 2:45 PM Signed yes--I will follow FEDERICO Alatorre MD, LPN 09/08/2019 4:42 PM Signed Melany advised of Dr Valdez's verbal orders. Sherill A Hamb el FOOT ROENTGENOLOGIST Allergies As of Date: 09/08/2019 Noted Allergy Reaction MORPHINE 02/28/2005 ROCEPHIN (CEFTRIAXONE SODIUM) 06/20/2014 14 - Other: See Com ments Comments: Hot flashes; redness to skin Date Reviewed: 04/28/2019 Reviewed by: Linwood ([facility]) JAZZY Carpenter - Fully Assessed Reason for Visit: [facility] orders [Other] Prescriptions as of 09/08/2019 Sig: [...] heart fail*12/17/2018 Encounter Status:Closed by EUFEMIA MAURICE FOOT ROENTGENOLOGIST on 09/08/19 cnpn on 2019-09-07 CNPN Telephone ([facility]) Normal 09-07-2019 [facility] LOVELY DEVI ([id number]) 1945 M [place] Date Time Provider Department ([id number]) 09/07/19 BLOSSOM (PHARMACIST)BRIJESH During your visit today, [...] said he was going to go to [facility]. Dipti marks monitor for an update on the patient and updated INR. Joleen Cerrato, PharmD ANSHUL SEBASTIAN 09/14/2019 9:32 AM Signed [facility] Referring provider: No ref. provider found Lovely Devi is a 73 year old year old male patient being evaluated today for anticoagulation Telemanagement visit. Patient is currently on the following anticoagulant Warfarin Labs PT INR (no units) Date Value 11/26/2018 Test sent to [facility]. 10/16/2017 1.8 01/16/2017 Test sent to [facility]. INR (POCT) (no units) Date Value 02/21/2019 [...] therapeutic ? Pt was recently discharged from [facility]. According to Epic note - he was [...] Pharmacy [facility]tico[facility] Pharm[facility] Pager: [phone] Description Patient has 3 mg tablets of warfarin. Patient takes in the m orning. . Chencho Helms (X Ray Control Equipment Repairer) 09/14/2019 11:06 AM Signed Patient returned call and is requesting pharmaci st to contact patient after 2 pm today as he is currently not home. Patient can be reached at [phone]. Chencho Helms, Intake Coordinator (developing machine tender) Pharmacy Anticoagulation Clinic JOLEEN CERRATO, PHARMACIST 09/14/2019 [...] skin Date Reviewed: 04/28/2019 Reviewed by: Linwood ([facility]) JAZZY Carpenter - Fully Assessed Reason for [...] on progress on 2019-08 PROGRESS HNO ID: [id number] Normal 09-05-2019 [facility] Author: Staci Almazan MD [place] ([id number]) Service: ? Author Type: Physician Type: Progress Notes Filed: 09/05/2019 3:49 PM Note Text: Virtualist Community Monitoring Note: Adult seen for Monitoring Track: High Risk Chronic Disease Management Contacted by phone, Needle [employer], Google Qpyno, SkFirstBeste, Zoom, [facility] ity, Express Care Online, other: phone I [...] in EMR. PMH (I reviewed epic, from [facility]) includes NSTEMI, ASHD, isch emic cardiomyopathy, [...] The said she would take him to [facility]. I called the [facility] ED [phone] and spoke to charge nurse Cristina and gave report. With his PMH and risk factors, this SOB is likely cardiac an d will need treatment and needs to go to ED, preferably by ambulance Disposition: Patient instructed to go to the ED A total of 10 minutes was spent providing medical care using telemedicine. Remove COVID19 association SIGNATURE: Staic Almazan MD PATIENT NAME: Lovely Agudelo wilfredo DATE: September 05, 2019 PAGER/CONTACT: [phone] PROGRESS HNO ID: [id number] Normal 09-05-2019 [facility] Author: Jeffy Fontenot (Dragan) [place] ([id number]) Service: ? Author Type: Registered Nurse Type: [...] Bardales RN and I am calling from [facility] on behalf of your PCP, [...] - routed to RX CLINICAL TRIAGE pool #[id number] and noted symptoms in the FYI box - Informed patient that you re commend further assessment from a provider to review symptoms. End O [facility] / Phone Call Outreach Ended Corie Bardales RN September 05, 2019 1:54 PM PROGRESS HNO ID: [id number] Normal 09-05-2019 [facility] Author: Faye Lara (Pharmacist) [place] ([id number]) Service: ? Author Type: Pharmacist Type: Progress Notes Filed: 09/05/2019 2:23 PM Note Text: Called patient to clarify. He reports significant SOB, barel y can make it to the bathroom. This is new for him. Will page elijahist stella fraser and route high priority to address today. Faye Lara, PharmD, BCACP Primary Care Pharmacist [facility] Patient Outreach (FAMPWS) Normal 0 09-05-2019 [place] [facility] LOVELY DEVI ([id number]) 1945 [facility] Date Time Provider Department ([id number]) 09/05/19 JEFFY FONTENOT (RN) FAMPWS During your visit [...] RN and I am calling from the [facility] on behalf of your PCP, Morgan Valdez, [...] - routed to RX CLINICAL TRIAGE pool #[id number] and noted symptoms in the FYI box [...] skin Date Reviewed: 04/28/2019 Reviewed by: Linwood ([facility]) JAZZY Carpenter - Fully Assessed Reason for [...] mouth once ajay * LANCETS Use with [employer]uch Glucometer * ASPIRIN 81 MG TABLET Take [...] OBSOLETE Refill (PHAMTE) Normal 08-31-2019 Jose chapin [facility] LOVELY DEVI ([id number]) 1945 [place] Date Time Provider Department ([id number]) 08/31/19 MORGAN VALDEZ III During your visit [...] skin Date Reviewed: 04/28/2019 Reviewed by: Linwood ([facility]) JAZZY Carpenter - Fully Assessed Reason for [...] Normal 08-27-2019 [facility] LOVELY DEVI ([id number]) 1945 M [place] Date Time Provider Department ([id number]) 08/27/19 DENIZ GARSIA During your visit today, [...] skin Date Reviewed: 04/28/2019 Reviewed by: Linwood ([facility]) JAZZY Carpenter - Fully Assessed Reason for [...] mouth once ajay * LANCETS Use with [employer]uch Glucometer * ASPIRIN 81 MG TABLET Take [...] on 2019-08-26 CNPN Telephone (NRSLME) Normal 08-26-2019 [place] [facility] MERCEDESLOVELY Quincy ([id number]) 1945 [facility] Date Time Provider Department ([id number]) 08/26/19 ARIANA BERNAL ([facility]) NRSE During your visit today, we [...] skin Date Reviewed: 04/28/2019 Reviewed by: Linwood ([facility]) JAZZY Carpenter - Fully Assessed Reason for [...] on 2019-08-24 ELBAN Telephone (VAHE) Normal 08-24-2019 [place] [facility] LOVELY DEVI ([id number]) 1945 M [place] Date Time Provider Department () 08/24/19 ANDRE (PHARMACIST)LEE During your visit today, we recorded the following informati on about you: Allergies As of Date: 08/24/2019 Noted Allergy Reaction MORPHINE 02/28/2005 ROCEPHIN (CEFTRIAXONE SODIUM) 06/20/2014 14 - Other: See Com ments Comments: Hot flashes; redness to skin Date Reviewed: 04/28/2019 Reviewed by: Linwood ([facility]) JAZZY Carpenter - Fully Assessed Reason for [...] on progress on 2019-07 PROGRESS HNO ID: [id number] Normal 08-23-2019 [facility] Author: Linwood Fowler) JAZZY Carpenter [place] ([id number]) Service: ? Author Type: Engagement Manager Type: Progress Notes Filed: 08/23/2019 4:03 PM Note Text: Patient notified, voiced understanding. Linwood Carpenter CMA PROGRESS HNO ID: [id number] Normal 08-23-2019 [facility] Author: Morgan Valdez III [place] ([id number]) Service: ? Author Type: Physician Type: Progress Notes Filed: 08/23/2019 3:19 PM Note Text: Staff, Please notify patient that the Covid 19 test obtained on 07/28 12/17 resulted in no detection of the virus. It was negative. He should report persistent or worsening symptoms of Covid 1 9. Morgan Valdez III, MD, FAAFP Morgan Valdez III, MD, FAA PROGRESS HNO ID: [id number] Normal 08-23-2019 [facility] Author: Linwood Fowler) JAZZY Carpenter [place] ([id number]) Service: ? Author Type: Engagement Manager Type: Progress Notes Filed: 08/23/2019 3:14 PM Note Text: Printed, placed on PCP's desk. Linwood Carpenter CMA PROGRESS HNO ID: [id number] Normal 08-23-2019 [facility] Author: Morgan Valdez III [place] ([id number]) Service: ? Author Type: Physician Type: Progress Notes Filed: 08/23/2019 12:34 PM Note Text: Staff, Please check [facility] to obtain Covid 19 results Morgan Valdez III MD PROGRESS HNO ID: [id number] Normal 08-23-2019 [facility] Author: Cara Zhang LPN [place] ([id number]) Service: ? Author Type: ? Type: Progress [...] BRICE and I am calling from the [facility] on behalf of your PCP, Morgan [...] - routed to RX CLINICAL TRIAGE pool #[id number] and noted symptoms in the FYI box - Informed patient that you re commend further assessment from a provider to review symptoms. End O atif / Phone Call cnptoutreach on CNPTOUTREACH Patient Outreach (AMBCMG) Normal 0 08-23-2019 [place] [facility] LOVELY DEVI ([id number]) 1945 [facility] Date Time Provider Department ([id number]) 08/23/19 MORGAN VALDEZ III During your visit [...] LPN and I am calling from the [facility] on behalf of your PCP, FEDERICO Alatorre [...] - routed to RX CLINICAL TRIAGE pool #[id number] and noted symptoms in the FYI box - Informed patient that you recommend further assessment from a provider to review symptoms. End Outreach / Phone Call Morgan Valdez III MD 08/23/2019 12:34 PM Signed Staff, Please check [facility] to obtain Covid 19 results FEDERICO Alatorre [...] 08/23/19 progress on 2019-07 PROGRESS HNO ID: [id number] Normal 08-12-2019 [facility] Author: John Suazo RN [place] ([id number]) Service: ? Author Type: ? Type: Progress Notes Filed: 08/12/2019 11:57 AM Note Text: HIGH RISK CHRONIC DISEASE MONITORING Provider Action/FYI: Contact made with patient: Yes Patient identified by name and . Discussed care with patient Hi my name is John Suazo RN and I am calling from the [facility] on behalf of your PCP, Morgan [...] to speak with a social work steam generating powerplant mechanic to help give you support for any [...] and out of the doctor's office or [facility]. Our team would like to [...] CNPTOUTREACH Patient Outreach (FAMPWS) Normal 0 08-12-2019 [place] [facility] LOVELY DEVI ([id number]) 1945 M [place] Date Time Provider Department ([id number]) 08/12/19 JOHN SUAZO (RN) FAMPWS During your visit today, we recorded the following informati on about you: John Suazo RN 08/12/2019 11:57 AM Signed HIGH RISK CHRONIC DISEASE MONITORING Provider Action/FYI: Contact made with patient: Yes Patient identified by name and . Discussed care with patient Hi my name is John Suazo RN and I am calling from the [facility] on behalf of your PCP, FEDERICO [...] to speak with a social work steam generating powerplant mechanic to help give you support for any of these needs? No It can be normal to feel anxious or down during a time lik e this. Would you like to talk to a mental health professional abo ny how you have been feeling? No ACTION TAKEN: No action taken Thank you for taking the time to talk with me to day. We want to work with you to ensure that we are keeping your medical conditions well-controlled and to keep you healthy and out of the doctor's office or [facility]. Our team would like to [...] skin Date Reviewed: 04/28/2019 Reviewed by: Linwood ([facility]) JAZZY Carpenter - Fully Assessed Reason for [...] on 2019-08-11 CNPN Telephone (NEMOWS) Normal 08-11-2019 [place] [facility] LOVELY DEVI ([id number]) 1945 M [place] Date Time Provider Department ([id number]) 08/11/19 ARIANA BERNAL (ELBA) NEMOWS During your [...] skin Date Reviewed: 04/28/2019 Reviewed by: Linwood ([facility]) JAZZY Carpenter - Fully Assessed Reason for [...] DONNA JOSE LPN on 08/11/19 CNPN Telephone (Sepior) Normal 08-11-2019 [facility] LOVELY DEVI ([id number]) 1945 M [place] Date Time Provider Department ([id number]) 08/11/19 ANUP (PHARMACIST)FAHEEM During your visit today, we recorded the following informati on about you: Anshul Almeida 08/11/2019 4:20 PM Addendum Error Julian Espinosa, PharmD Allergies As of Date: 08/11/2019 Noted Allergy Reaction MORPHINE 02/28/2005 ROCEPHIN (CEFTRIAXONE SODIUM) 06/20/2014 14 - Other: See Com ments Comments: Hot flashes; redness to skin Date Reviewed: 04/28/2019 Reviewed by: Linwood ([facility]) JAZZY Carpenter - Fully Assessed Reason for [...] on 2019-08-10 CNPN Telephone (INTMMN) Normal 08-10-2019 [place] [facility] LOVELY DEVI ([id number]) 1945 M [place] Date Time Provider Department ([id number]) 08/10/19 ANGIE (PHARMACIST)ALEXIA During your visit today, [...] mouth once ajay * LANCETS Use with [employer] Glucometer * ASPIRIN 81 MG TABLET Take [...] on progress on 2019-07 PROGRESS HNO ID: [id number] Normal 08-05-2019 [facility] Author: John Suazo RN [place] ([id number]) Service: ? Author Type: ? Type: Progress Notes Filed: 08/05/2019 3:25 PM Note Text: HIGH RISK CHRONIC DISEASE MONITORING Provider Action/FYI: Contact made with patient: Yes Patient identified by name and . Discussed care with patient Hi my name is Jonh Suazo RN and I am calling from the [facility] on behalf of your PCP, Morgan [...] to speak with a social work steam generating powerplant mechanic to help give you support for any [...] and out of the doctor's office or [facility]. Our team would like to [...] Outreach section. cnptoutreach on CNPTOUTREACH [facility] Normal 0 08-05-2019 [place] [facility] LOVELY DEVI ([id number]) 1945 M [place] Date Time Provider Department ([id number]) 08/05/19 JOHN SUAZO (RN) RENEEWS During your visit today, we recorded the following informati on about you: John Suazo RN 08/05/2019 3:25 PM Signed HIGH RISK CHRONIC DISEASE MONITORING Provider Action/FYI: Contact made with patient: Yes Patient identified by name and . Discussed care with patient Hi my name is John Suazo RN and I am calling from the [facility] on behalf of your PCP, FEDERICO [...] to speak with a social work steam generating powerplant mechanic to help give you support for any [...] and [facility] Our team would like to stay [...] skin Date Reviewed: 04/28/2019 Reviewed by: Linwood ([facility]) JAZZY Carpenter - Fully Assessed Reason for [...] on 08/05/19 cnpn on 2019-08-02 CNPN Telephone ([facility]) Normal 08-02-2019 [place] [facility] LOVELY DEVI ([id number]) [address] [facility] Time Provider Department ([id number]) 08/02/19 MORGAN VALDEZ III During your visit [...] Dr. Merritt wants h im only on ktbp-hef-avhqatk pain medication, then t he patient should [...] 08/02/19 progress on 2019-07 PROGRESS HNO ID: [id number] Normal 07-29-2019 [facility] Author: Vera (Network Navigator) Nakul [place] ([id number]) Service: ? Author Type: Engagement Manager Type: Progress Notes Filed: 07/29/2019 3:10 PM Note Text: HIGH RISK CHRONIC DISEASE MONITORING Provider Action/FYI: Dr. Valdez- pt needs refill of Lasix 40 mg. Please send to [facility] in [place]. Contact made with patient: Yes Patient identified by name and . Discussed care with patient Hi my name is Vera Mota, NETWORK NAVIGATOR and I am callin g from the [facility] on behalf of your PCP, FEDERICO Alatorre [...] to speak with a social work steam generating powerplant mechanic to help give you support for any [...] CNPTOUTREACH Patient Outreach (FAMPWS) Normal 0 07-29-2019 [place] [facility] LOVELY DEVI ([id number]) 1945 M [place] Date Time Provider Department ([id number]) 07/29/19 VERA MOTA (NETWORK NAVIGATOR)FAMPWS During your visit today, we recorded the following informati on about you: RIKY High NAVIGATOR 07/29/2019 3:10 PM Signed HIGH RISK CHRONIC DISEASE MONITORING Provider Action/FYI: Dr. Valdez- pt needs refill of Lasix 40 mg. Please send to [facility] in [place]. Contact made with patient: Yes Patient identified by name and . Discussed care with patient Hi my name is Vera DuncanRIKY mathew NAVIGATOR and I am callin g from the [facility] on behalf of your PCP, Morgan [...] to speak with a social work steam generating powerplant mechanic to help give you support for any [...] skin Date Reviewed: 04/28/2019 Reviewed by: Linwood ([facility]) JAZZY Carpenter - Fully Assessed Reason for [...] on 07/29/19 elban on 2019-07-27 ELBAN Telephone ([facility]) Normal 07-27-2019 [facility] LOVELY DEVI ([id number]) 1945 M [place] Date Time Provider Department () 07/27/19 BLOSSOM (PHARMACIST)BRIJESH During your visit today, we recorded the following informati on about you: JOLEEN CERRATO PHARMACIST 07/27/2019 11:08 AM Signed Soweso message sent for INR at [facility]. Joleen Cerrato PharmD Allergies As of Date: 07/27/2019 Noted Allergy Reaction MORPHINE 02/28/2005 ROCEPHIN (CEFTRIAXONE SODIUM) 06/20/2014 14 - Other: See Com ments Comments: Hot flashes; redness to skin Date Reviewed: 04/28/2019 Reviewed by: Linwood ([facility]) JAZZY Carpenter - Fully Assessed Reason for [...] on progress on 2019-06 PROGRESS HNO ID: [id number] Normal 07-21-2019 [facility] Author: Becky Garibay [facility] ([id number]) Service: ? Author Type: ? Type: Progress Notes Filed: 07/21/2019 3:21 PM Note Text: HIGH RISK CHRONIC DISEASE MONITORING Provider Action/FYI: Patient states no concerns Contact made with patient: Yes Patient identified by name and . Discussed care with patient Hi my name is Becky Garibay [facility] and I am calling from [facility] on behalf of your PCP, [...] to speak with a social work steam generating powerplant mechanic to help give you support for any [...] out [facility]'s [facility] Our team would like to stay connected [...] CNPTOUTREACH Patient Outreach (FAMPWS) Normal 0 07-21-2019 [place] [facility] LOVELY DEVI ([id number]) 1945 [facility] Date Time Provider Department ([id number]) 07/21/19 MORGAN VALDEZ III During your visit today, we recorded the following informati on about you: Becky Garibay Pss 07/21/2019 3:21 PM Signed HIGH RISK CHRONIC DISEASE MONITORING Provider Action/FYI: Patient states no concerns Contact made with patient: Yes Patient identified by name and . Discussed care with patient Hi my name is Becky Garibay Pss and I am calling from the [facility] on behalf of your PCP, Morgan [...] to speak with a social work steam generating powerplant mechanic to help give you support for any [...] and out of the doctor's office or [facility]. Our team would like to [...] skin Date Reviewed: 04/28/2019 Reviewed by: Linwood ([facility]) JAZZY Carpenter - Fully Assessed Reason for [...] mouth once ajay * LANCETS Use with [employer] Glucometer * ASPIRIN 81 MG TABLET Take [...] on 2019-06 OBSOLETE Refill (FAMPWS) Normal 07-18-2019 [facility] LOVELY DEVI ([id number]) 1945 [facility] Time Provider Department ([id number]) 07/18/19 MORGAN VALDEZ III FAMPWS During your [...] Please advise. Thank you. Cindi Garsia, MSN REHABILITATION TECHNICIAN.CYBER SECURITY ENGINEER 07/19/2019 8:10 AM Signed The following approved medic ation requests have been transmitted electronically. Signed Prescriptions Disp Refills Insulin Syringe-Needle U-100 (BD ULTRAFINE INSULIN) 1 mL 31 gauge x 5/16 450 Each 3 Si Each five times daily. ZBIGNIEW: No Authorizing Provider: DENIZ GARSIA, MSN REHABILITATION TECHNICIAN.CYBER SECURITY ENGINEER Allergies As of Date: 07/18/2019 Noted Allergy Reaction MORPHINE 02/28/2005 ROCEPHIN (CEFTRIAXONE SODIUM) 06/20/2014 14 - Other: See Com ments Comments: Hot flashes; redness to skin Date Reviewed: 04/28/2019 Reviewed by: Linwood ([facility]) JAZZY Carpenter - Fully Assessed Reason for [...] on file. Encounter Status:Closed by DENIZ GARSIA CYBER SECURITY ENGINEER on 07/19/19 OBSOLETE Refill (FAMPWS) Normal 07-18-2019 [facility] LOVELY DEVI ([id number]) 1945 [facility] Date Time Provider Department ([id number]) 07/18/19 DENIZ GARSIAPWS During your visit today, [...] skin Date Reviewed: 04/28/2019 Reviewed by: Linwood ([facility]) JAZZY Carpenter - Fully Assessed Reason for [...] mouth once ajay * LANCETS Use with [employer] Glucometer * ASPIRIN 81 MG TABLET Take [...] on 07/19/19 cnpn on 2019-07-13 CNPN Telephone ([facility]) Normal 07-13-2019 [place] [facility] [facility] LOVELY DEVI ([id number]) 1945 M [place] Date Time Provider Department ([id number]) 07/13/19 BLOSSOM (PHARMACIST)BRIJESH During your visit today, [...] skin Date Reviewed: 04/28/2019 Reviewed by: Linwood ([facility]) JAZZY Carpenter - Fully Assessed Reason for [...] mouth once ajay * LANCETS Use with [employer]uch Glucometer * ASPIRIN 81 MG TABLET Take [...] on progress on 2019-06 PROGRESS HNO ID: [id number] Normal 06-30-2019 [facility] Author: Deniz [place] ([id number]) Service: ? Author Type: Nurse Practitioner Type: Progress Notes Filed: 07/01/2019 11:35 AM Note Text: Noted. Deniz Garsia, MSN REHABILITATION TECHNICIAN.CYBER SECURITY ENGINEER progress on 2019-06 PROGRESS HNO ID: [id number] Normal 06-29-2019 [place] Author: Jeffy Fontenot (Rn) Clinic Service: ? [place] Author Type: Registered Nurse ([id number]) Type: Progress Notes Filed: 07/01/2019 11:35 AM [...] concern s Pt reports will f/u with [facility] Cardiology is 6 mths ( Please s ee #6 below: his recent ICD evaluation showed 1 nonsustained VT episode) [facility] 05/30/19 Cardiology Appt with Francis Kwok NP [facility] 06/08/19 ICD Pacemaker Interrogation completed 05/30/19 OV Francis Kwok NP / [facility] Addendum Excerpt noted: Assessment AND Plan 1. 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 Corie Bardales RN June 29, 2019 12:10 PM Corie Bardales RN June 29, 2019 6:57 PM PROGRESS HNO ID: [id number] Normal 06-29-2019 [place] Author: Jeffy Fontenot (Rn) Clinic Service: ? [place] Author Type: Registered Nurse ([id number]) Type: Progress Notes Filed: 07/01/2019 11:35 AM [...] SAMREEN Patient Outreach (FAMPWS) Normal 0 06-29-2019 [place] [facility] LOVELY DEVI ([id number]) 1945 [facility] Date Time Provider Department ([id number]) 06/29/19 JEFFY FONTENOT (RN) FAMPWS During your [...] concern s Pt reports will f/u with [facility] Cardiology is 6 mths ( Pl ease see #6 below: his recent ICD evaluation showed 1 nonsustained VT episode) - [facility] 05/30/19 Cardiology Appt with Francis Kwok NP [facility] 06/08/19 ICD Pacemaker Interrogation completed 05/30/19 OV Francis Kwok NP / [facility] Addendum Excerpt noted: Assessment AND Plan 1. Atherosclerotic heart disease of [place] coronary artery with other forms of angina pectoris I25.118 MJT-Nnsly-Rek Cx; PCI-Cutting Balloon Angioplasty of ISR-ost ium [...] History of coronary artery stent placement Z95.5 YAX-Pdraa-MP3; PCI-Cutting Balloon Angioplasty of ISR-ostium of prox OM1 11/22/02; PCI-stent to proximal OM1 01/2008; PCI- AJF-SLZ-Wqwm OM1 w/ 2.5 x 12 mm Promus [...] Orders Orders: 12 Lead EKG performed by [facility] Today 6. Nonsustained ventricular tachycardia I47.2 Plan [...] 2 Weeks (Funmilayo- Remote check) 6 Months (SATELLITE TECHNICIAN) Patient identified by name and date . Corie Bardales RN June 29, 2019 12:10 PM Corie Bardales RN June 29, 2019 6:57 PM LEATHA Kebede REHABILITATION TECHNICIAN.ELBA 07/01/2019 11:35 AM Signed Noted. 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 Hospital Time Provider Department ([id number]) 06/29/19 BLOSSOM (PHARMACIST)SHARIF During your visit today, we recorded the following informati on about you: ANSHUL SEBASTIAN 06/29/2019 9:31 AM Signed [facility] Referring provider: No ref. provider found Lovely Devi is a 73 year old year old male patient being evaluated today for anticoagulation Telemanagement visit. Patient is currently on the following anticoagulant Warfarin Labs PT INR (no units) Date Value 11/26/2018 Test sent to [facility]. 10/16/2017 1.8 01/16/2017 Test sent to [facility]. INR (POCT) (no units) Date Value 02/21/2019 [...] Pharmacy Anticoagulation Clinic Pharmacy Anticoagulation Clinic Pager: [phone] Description Patient has 3 mg tablets of warfarin. Patient takes in the m orning. . Allergies As of Date: 06/29/2019 Noted Allergy Reaction MORPHINE 02/28/2005 ROCEPHIN (CEFTRIAXONE SODIUM) 06/20/2014 14 - Other: See Com ments Comments: Hot flashes; redness to skin Date Reviewed: 04/28/2019 Reviewed by: Linwood ([facility]) JAZZY Carpenter - Fully Assessed Reason for [...] on 2019-06-27 CNPN Telephone (FAMPWS) Normal 06-27-2019 [place] [facility] LOVELY DEVI ([id number]) 1945 [facility] Date Time Provider Department ([id number]) 06/27/19 MORGAN VALDEZ III FAMPWS During your [...] skin Date Reviewed: 04/28/2019 Reviewed by: Linwood ([facility]) JAZZY Carpenter - Fully Assessed Reason for [...] Normal 06-25-2019 [facility] LOVELY DEVI ([id number]) 1945 M [place] Date Time Provider Department ([id number]) 06/25/19 MORGAN VALDEZ III FAMPWS During your visit today, we recorded the following informati on about you: Allergies As of Date: 06/25/2019 Noted Allergy Reaction MORPHINE 02/28/2005 ROCEPHIN (CEFTRIAXONE SODIUM) 06/20/2014 14 - Other: See Com ments Comments: Hot flashes; redness to skin Date Reviewed: 04/28/2019 Reviewed by: Linwood ([facility]) JAZZY Carpenter - Fully Assessed Reason for [...] mouth once ajay * LANCETS Use with [employer] Glucometer * ASPIRIN 81 MG TABLET Take [...] on 06/27/19 cnpn on 2019-06-15 CNPN Telephone ([facility]) Normal 06-15-2019 [place] [facility] LOVELY DEVI ([id number]) [address] [facility] Time Provider Department ([id number]) 06/15/19 BLOSSOM (PHARMACIST)BRIJESH During your visit today, we recorded the following informati on about you: JOLEEN CERRATO, PHARMACIST 06/15/2019 10:12 AM Signed Tried pt twice but it kept ringing with no answer. Will attempt him later today. Joleen Cerrato, PharmD Pharmacy Anticoagulation Clinic Anshul Dailey 06/15/2019 3:15 PM Signed [facility] Referring provider: No ref. provider found Lovely Devi is a 73 year old year old male patient being evaluated today for anticoagulation Telemanagement visit. Patient is currently on the following anticoagulant Warfarin Labs PT INR (no units) Date Value 11/26/2018 Test sent to [facility]. 10/16/2017 1.8 01/16/2017 Test sent to [facility]. INR (POCT) (no units) Date Value 02/21/2019 [...] Pharmacy Anticoagulation Clinic Pharmacy Anticoagulation Clinic Pager: [phone] Description Patient has 3 mg tablets of warfarin. Patient takes in the m orning. . Allergies As of Date: 06/15/2019 Noted Allergy Reaction MORPHINE 02/28/2005 ROCEPHIN (CEFTRIAXONE SODIUM) 06/20/2014 14 - Other: See Com ments Comments: Hot flashes; redness to skin Date Reviewed: 04/28/2019 Reviewed by: Lniwood ([facility]) JAZZY Carpenter - Fully Assessed Reason for [...] mouth once ajay * LANCETS Use with [employer] Glucometer * ASPIRIN 81 MG TABLET Take [...] (PHARMACIST)LACEY on cnpn on 2019-05-25 CNPN Telephone ([facility]) Normal 05-25-2019 [place] [facility] [facility] LOVELY DEVI ([id number]) 1945 M [place] Date Time Provider Department ([id number]) 05/25/19 BLOSSOM (PHARMACIST)BRIJESH During your visit today, we recorded the following informati on about you: JOLEEN CERRATO PHARMACIST 05/25/2019 4:52 PM Signed Patient was due to test INR today will continue to monitor f or results. Joleen Cerrato PharmD Pharmacy Anticoagulation Clinic Tahira Moore Pharmacist 06/01/2019 9:01 AM Signed [facility] Referring provider: No ref. provider found Lovely Devi is a 73 year old year old male patient being evaluated today for anticoagulation Telemanagement visit. Patient is currently on the following anticoagulant Warfarin Labs PT INR (no units) Date Value 11/26/2018 Test sent to [facility]. 10/16/2017 1.8 01/16/2017 Test sent to [facility]. INR (POCT) (no units) Date Value 02/21/2019 [...] was advised to call the [facility] @ [phone] for any questions or concerns. Tahira Moore PharmD Clinical Pharmacist, Pharmacy Anticoagulation Clinic Pharmacy Anticoagulation Clinic Pager: [phone] Description Patient has 3 mg tablets of warfarin. Patient takes in the m orning. . Allergies As of Date: 05/25/2019 Noted Allergy Reaction MORPHINE 02/28/2005 ROCEPHIN (CEFTRIAXONE SODIUM) 06/20/2014 14 - Other: See Com ments Comments: Hot flashes; redness to skin Date Reviewed: 04/28/2019 Reviewed by: Linwood ([facility]) JAZZY Carpenter - Fully Assessed Reason for [...] on progress on 2019-03 PROGRESS HNO ID: [id number] Normal 04-28-2019 [facility] Author: Morgan Valdez III [place] ([id number]) Service: ? Author Type: Physician Type: Progress [...] G47.33 327.23 - fax compliance download to [phone] - flash glucose sensor (FREESTYLE ANITRA 14 [...] mouth once daily. - blood sugar diagnostic ([facility] BLOOD GLUCOSE SYSTEM) test strip Use as [...] of vessel, na tive or graft s/p MA in 1985 - Diverticulosis of colon (without [...] ventricular tachycardia (HCC) - Snoring - Stroke ([facility]) - Tinea of nail 01/13/2011 - [...] 2019-04-28 CNOV Office Visit (FAMPWS) Normal 04-28-19 [place] [facility] [facility] LOVELY DEVI ([id number]) 1945 M [place] Date Time Provider Department ([id number]) 04/28/19 10:20 AM MORGAN VALDEZ IIIWS During [...] G47.33 327.23 - fax compliance download to [phone] - flash glucose sensor (FREESTYLE ANITRA 14 [...] mouth once daily. - blood sugar diagnostic ([facility] BLOOD GLUCOSE SYSTEM) test strip Use as [...] TOUCH ULTRASO FT LANCETS) lancets Use with [employer] Glucometer as directed - Aspirin 81 mg [...] of vessel, na tive or graft s/p MA in 1985 - Diverticulosis of colon (without [...] III MD Referring Provider: MORGAN VALDEZ III [[id number]] Allergies As of Date: 04/28/2019 Noted Allergy Reaction MORPHINE 02/28/2005 ROCEPHIN (CEFTRIAXONE SODIUM) 06/20/2014 14 - Other: See Com ments Comments: Hot flashes; redness to skin Date Reviewed: 04/28/2019 Reviewed by: Linwood [facility] JAZZY Carpenter - Fully Assessed Reason for [...] Order(s):ALBUMIN/CREAT RATIO RND UR [SQUACR] Order #: [id number] FUTURE HGB A1C [FFPBF8E] Order #: [id number] FUTURE LIPID PANEL BASIC [SQLIPB] Order #: [id number] FUTURE COMP METABOLIC PANEL [SQCMP] Order #: [id number] FUTURE Prescriptions as of 04/28/2019 Sig: FUROSEMIDE [...] 2-3 days notify office if not improving oMrgan Valdez III MD Encounter Status:Closed by MORGAN VALDEZ III, MD on 04/28/19 vitamin d 25 hydroxy on 2019-04-21 Vitamin D 25 Hydroxy 28.0 31.0-80.0 ng/mL Low 0 [facility] (79725) Comment: Result Comment: Classificati on of 25 [place] Vitamin D status: Insufficiency/Moderate Defic iency: < or = 30 ng/mL Sufficiency/Optimal Levels: 31 to 80 ng/mL Toxicity: > 100 ng/mL Test performed by chemilumin escent immunoassay. Performed By: #### VITD, HBA 1C, CMP #### [facility] [address] [place], [place] [address] hemoglobin a1c on HbA1c (Bld) [Mass fraction] 6.8 4.3-5.6 % High [facility] (62665) Comment: Result Comment: [place] Dominique betes Association guidelines indicate that patients with HgbA1c in the range 5.7-6.4% are at increased risk for development of diabetes, and intervention by lifestyle modification may be beneficial. HgbA1c greater o r equal to 6.5% is considered diagnostic of diabetes. Performed By: #### VITD, HBA 1C, CMP ####[facility] [address] [place], [place] [address] HbA1c (Bld) [Mass fraction] 148 mg/dL Normal [facility] (92900) Comment: Result Comment: eAG: (Wilnera devin average glucose) is a calculated value from HgbA1c and is construction sales representative of the average blood glucose level in the last 2-3 month period. Performed By: #### VITD, HBA 1C, CMP ####[place] [address] [place] [address] [phone] comp metabolic panel on 2019-04-21 Albumin [Mass/Vol] 4.5 3.9-4.9 g/dL Normal 04-21-2019 [facility] (88028) Comment: Performed By: #### VITD, HBA 1C, CMP ####[place] [address] [place] [place] [address] ALP [Catalytic activity/Vol] 51 38-113 U/L Normal 0 04-21-2019 [facility] (21702) Comment: Performed By: #### VITD, HBA 1C, CMP ####[place] [address] [place] [address] [phone] ALT [Catalytic activity/Vol] 33 10-54 U/L Normal 0 04-21-2019 [facility] (67060) Comment: Performed By: #### VITD, HBA 1C, CMP ####[place] [address] [place] [address] Anion gap [Moles/Vol] 13 9-18 mmol/L Normal 04-21-19 [facility] (58939) Comment: Performed By: #### VITD, HBA 1C, CMP ####[place] [address] [place] [address] [phone] AST [Catalytic activity/Vol] 36 14-40 U/L Normal 0 04-21-2019 [facility] (15837) Comment: Performed By: #### VITD, HBA 1C, CMP ####[place] [address] [place] [address] [phone] Bilirubin [Mass/Vol] 0.6 0.2-1.3 mg/dL Normal 0 [facility] (82850) Comment: Performed By: #### VITD, HBA 1C, CMP ####[place] [address] [place] [address] [phone] Calcium [Mass/Vol] 9.3 8.5-10.2 mg/dL Normal 04-21-2019 [facility] (80485) Comment: Performed By: #### VITD, HBA 1C, CMP ####[place] [address] [place] [address] [phone] Chloride [Moles/Vol] 98 97-105 mmol/L Normal 0 [facility] (84015) Comment: Performed By: #### VITD, HBA 1C, CMP ####[place] [address] [place] [address] [phone] CO2 [Moles/Vol] 27 22-30 mmol/L Normal 04-21-2019 [facility] (40573) Comment: Performed By: #### VITD, HBA 1C, CMP ####[place] [address] [place] [place] [address] [phone] Creatinine [Mass/Vol] 1.35 0.73-1.22 mg/dL High 04-21-19 20 [facility] (27809) Comment: Performed By: #### VITD, HBA 1C, CMP ####[place] [address] [place] [address] [phone] eGFR- Amer. >60 Normal 04-21-2019 [facility] (92432) Comment: Performed By: #### VITD, HBA 1C, CMP ####[place] [address] [place] [address] [phone] GFR/1.73 sq M predicted among 52 . Normal 04-21-2019 [facility] non-blacks MDRD (S/P/Bld) [Vol (20355) rate/Area] Comment: Result Comment: eGFR (Estima devin [...] Performed By: #### VITD, HBA 1C, CMP ####[facility] [place] [address] [phone] Glucose [Mass/Vol] 185 74-99 mg/dL High 04-21-2019 [facility] (00813) Comment: Result Comment: The [place] Diabetes Association (ADA) provides guidance for cutoff [...] for diagnosis of diabetes. Reference: Standards of [facility] Care in Diabetes 2016, [place] Diabetes Association. Diabetes Care. 2016.39(Suppl 1). Performed By: #### VITD, HBA 1C, CMP ####[facility] [address] [place] [address] [phone] Potassium [Moles/Vol] 4.6 3.7-5.1 mmol/L Normal 04-21-19 [facility] (50052) Comment: Performed By: #### VITD, HBA 1C, CMP ####[facility] [address] [place] [address] Protein [Mass/Vol] 7.1 6.3-8.0 g/dL Normal 04-21-2019 [facility] (05192) Comment: Performed By: #### VITD, HBA 1C, CMP ####[facility] [address] [place] [address] [phone] Sodium [Moles/Vol] 138 136-144 mmol/L Normal 04-21-2019 [facility] (47603) Comment: Performed By: #### VITD, HBA 1C, CMP ####[facility] [address] [place] [address] [phone] Urea nitrogen [Mass/Vol] 25 9-24 mg/dL High 04-21 [facility] (55267) Comment: Performed By: #### VITD, HBA 1C, CMP ####[facility] [place] [place] [address] [phone] progress on 2019-03 PROGRESS HNO ID: [id number] Normal 04-19-2019 [facility] Author: Jeffy Fontenot (Rn) [place] ([id number]) Service: ? 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 Author Type: Nurse Practitioner Type: [...] of vessel, na tive or graft s/p MA in 1985 - Diverticulosis of colon (without [...] Laterality Date - [facility] 12/[facility]2017 Dr. Anthony-repeat 3 years-11/2020 - COLONOSCOPY W/BX 02/21/09 - EGD W/O OR W/BRUSH/WASH EGD - EGD W/O OR W/BRUSH/WASH 02/16/08 EGD inpt [facility] H-pylori negative - EGD W/O OR W/BRUSH/WASH 05/24/15 EGD - EGD W/O OR W/BRUSH/WASH 12/21/2017 Dr. Anthony-repeat 3 years-11/2020 - HEART CATHETERIZATION 12/15/2014 [facility] - see scanned documents - HEART SURGERY [...] G47.33 327.23 - fax compliance download to [phone] flash glucose sensor (FREESTYLE ANITRA 14 DAY [...] by mouth once daily. blood sugar diagnostic ([facility] BLOOD GLUCOSE SYSTEM) test s trip Use [...] (ONE TOUCH ULTRASOFT LANCETS) lancets Use with [facility] Glucometer as directed Aspirin 81 mg [...] including hand washing. - Instructed to call child day care center worker or go to ED if high fev [...] and symptoms. All questions addressed. Ariana Arias APRN.CYBER SECURITY ENGINEER cnov on 2019-04-05 CNOV Office Visit (UCWSTR) Normal 04-05-19 [place] [facility] LOVELY DEVI ([id number]) 1945 M [place] Date Time Provider Department ([id number]) 04/05/19 11:15 AM ARIANA AIRAS [facility] During your visit today, we recorded the [...] of vessel, na tive or graft s/p MA in 1985 - Diverticulosis of colon (without [...] Laterality Date - COLONOSCOP W/ OR W/O [facility] SPEC 12/21/2017 Dr. Anthony-repeat 3 years-11/2020 - COLONOSCOPY W/BX 02/21/09 - EGD W/O OR W/BRUSH/WASH EGD - EGD W/O [facility] W[facility]BR[facility] - [facility] W/O OR W/BRUSH/WASH 05/24/15 EGD - EGD W/O OR W/BRUSH/WASH 12/21/2017 Dr. Anthony-repeat 3 years-11/2020 - HEART CATHETERIZATION 12/15/2014 [facility] - see scanned documents - HEART SURGERY [...] G47.33 327.23 - fax compliance download to [phone] flash glucose sensor (FREESTYLE ANITRA 14 DAY [...] by mouth once daily. blood sugar diagnostic ([facility] BLOOD GLUCOSE SYSTEM) test s trip Use [...] including hand washing. - Instructed to call child day care center worker or go to ED if high fever, [...] e person should be evaluated by an child day care center worker. Contact lens wearers ? People who wear [...] within two weeks, an examination with an child day care center worker may be recomme nded. CONJUNCTIVITIS PREVENTION Bacterial [...] person melinda uld be evaluated by an child day care center worker. Contact lens wearers ? People who wear [...] touching their eyes, should probably not [facility] until the discharge has resolved. Older [...] 25 Hydroxy 25.2 31.0-80.0 ng/mL Low 9 [facility] (75091) Comment: Result Comment: Classificati on of 25 [place] Vitamin D status: Insufficiency/Moderate Defic iency: < or = 30 ng/mL Sufficiency/Optimal Levels: 31 to 80 ng/mL Toxicity: > 100 ng/mL Test performed by chemilumin escent immunoassay. Performed By: #### FERR, VIT D, IRON, TSH #### [facility] [address] [place] [id number] tsh on 2019-03-24 TSH Qn 2.590 0.270-4.200 uU/mL Normal 03-24-2019 [facility] (68856) Comment: Performed By: #### FERR, VIT D, IRON, TSH #### [facility] [address] [place] [phone] progress on 2019-02 PROGRESS HNO ID: [id number] Normal 03-24-2019 [place] Author: Ariana Richey) [facility] Service: ? [place] Author Type: Nurse Practitioner ([id number]) Type: Progress Notes Filed: 03/24/2019 4:47 PM Note Text: [facility] Follow-up/Established patient visit Date of last visit: 01/26/19 ? Sleep Disorder Dx Impression: Obstructive sleep apnea -?Compliant and beneffiting Residual daytime sleepiness.? ? Psychiatric Diagnoses: na ? Other Conditioning Diagnoses CAD, Afib, Petit's. Cardiomegaly, Obesity, Dysphagia, HTN, Reflux, DM2,?Neck mass lower left neck ? Case Formulation / [place] (may include pt's hopes, fears, ex pectations, [...] MD ? For this visit, a total wjzg-om-pqob time with the patient c omprised 30 [...] of vessel, na tive or graft s/p MA in 1985 - Diverticulosis of colon (without [...] mg tablet Take 1 tablet by mouth rsutam ly at bedtime. warfarin (COUMADIN) 3 mg [...] G47.33 327.23 - fax compliance download to [phone] flash glucose sensor (FREESTYLE ANITRA 14 DAY [...] by mouth once daily. blood sugar diagnostic ([facility] BLOOD GLUCOSE SYSTEM) test s trip Use [...] depending on your insurance coverage. Contact your [employer] company for new supplies as needed. - Patient to talk to Chencho at [facility] on mask fit. If unab le to [...] Follow up in 3 month(s). Ariana Bernal APRN.CYBER SECURITY ENGINEER PROGRESS HNO ID: [id number] Normal 03-24-2019 [place] Author: Deniz George FOOT ROENTGENOLOGIST Clinic Service: ? [place] Author Type: ? (0000 0) Type: Progress Notes Filed: 03/24/2019 10:54 AM Note Text: iron and tibc on 17-03-26 Iron [Mass/Vol] 102 41-186 ug/dL Normal 03-24-2019 [facility] (91393) Comment: Performed By: #### FERR, VIT D, IRON, TSH #### [facility] [address] [place] [address] TIBC 402 232-386 ug/dL High 03-24-2019 [facility] (42148) Comment: Performed By: #### FERR, VIT D, IRON, TSH #### [facility] [address] [place], [place] [address] Transferrin Saturatn 25 15-57 % Normal 9 [facility] (62400) Comment: Performed By: #### FERR, VIT D, IRON, TSH #### [facility] [address] [place], [place] [address] ferritin on 2019-02 Ferritin [Mass/Vol] 61.8 30.3-565.7 ng/mL Normal 9 [facility] (30471) Comment: Performed By: #### FERR, VIT D, IRON, TSH #### [facility] [address] [place], [place] [address] cnov on 2019-03-24 CNOV Office Visit (NEMOWS) Normal 03-24-[address] [place] [address] [facility] LOVELY DEVI ([id number]) 1945 [facility] Date Time Provider Department ([id number]) 03/24/19 11:00 AM ARIANA BERNAL (ELBA) NEMOWS During your visit today, we recorded the following informati on about you: Pulse Respiration Blood pressure Weight 62/minute 16/minute 123/58 122.5 kg Deniz George LPN 03/24/2019 10:54 AM Signed Ariana Bernal APRN.ELBA 03/24/2019 4:47 PM Signed [facility] Follow-up/Established patient visit Date of last visit: 01/26/19 ? Sleep Disorder Dx Impression: Obstructive sleep apnea -?Compliant and beneffiting Residual daytime sleepiness.? ? Psychiatric Diagnoses: na ? Other Conditioning Diagnoses CAD, Afib, Petit's. Cardiomegaly, Obes ity, Dysphagia, HTN, Reflux, DM2,?Neck mass lower left neck ? Case Formulation / [place] (may include pt's hopes, fears, ex pectations, [...] MD ? For this visit, a total ddmv-eq-beqj time with the patient c omprised 30 minutes, with at least 50% of that time devoted to urnf-ny-zzuo counseling and coordination of care, with especial [...] of vessel, na tive or graft s/p MA in 1985 - Diverticulosis of colon (without [...] disease, with long-term current use of insulin ([facility]) 06/15/2017 - Unspecified essential hypertension PSH, [...] G47.33 327.23 - fax compliance download to [phone] flash glucose sensor (FREESTYLE ANITRA 14 DAY [...] by mouth once daily. blood sugar diagnostic ([facility] BLOOD GLUCOSE SYSTEM) test s trip Use [...] TOUCH ULTRASOFT LANCETS) lancets Us e with [employer] Glucometer as directed Aspirin 81 mg ORAL [...] depending on your insurance coverage. Contact your [facility] [employer] company for new supplies as needed. - [...] covered by insurance. Referring Provider: NIK PUENTE [[id number]] Allergies As of Date: 03/24/2019 Noted Allergy Reaction MORPHINE 02/28/2005 ROCEPHIN (CEFTRIAXONE SODIUM) 06/20/2014 14 - Other: See Com ments Comments: Hot flashes; redness to skin Date Reviewed: 03/24/2019 Reviewed by: Ariana (Music Rehabilitation Therapist) Gabe - Fully Assessed Reason for Visit: [...] tabletRfl: 1 FERRITIN BLD [SQFERR] Order #: [id number] FUTURE IRON + TIBC [SQIRON] Order #: [id number] FUTURE TSH BLD [SQTSH] Order #: [id number] FUTURE VITAMIN D 25 HYDROXY [SQVITD] Order #: [id number] FUTURE rOPINIRole (REQUIP) 0.5 mg tabletTake 1 [...] file. Cosign accepted by MORGAN VALDEZ III, MD[[id number]] on 06/18/19 13 5:06 PM traZODone (DESYREL) 50 mg tablet 30 t* 0 02/17/2019 03/24/20 Route: ORAL Sig: Take 1 tablet by mouth daily at bedtime. Disc: Reason for discontinue is not on file. Disposition: Return in about 3 months (around 06/23/2019). Follow-up and Disposition History Recorded Encounter Status:Closed by ARIANA BERNAL on 03/24/19 progress on 2019-01 PROGRESS HNO ID: [id number] Normal 02-21-2019 [facility] Author: Linwood Carpenter MA [place] ([id number]) Service: ? Author Type: Engagement Manager Type: Progress Notes Filed: 02/21/2019 7:22 PM Note Text: Per PCP written response: PCP in agreement with instructions below. Linwood Carpenter CMA PROGRESS HNO ID: [id number] Normal 02-21-2019 [facility] Author: Melany Yuen RN [place] ([id number]) Service: ? Author Type: ? Type: Progress Notes Filed: 02/21/2019 10:36 AM Note Text: patient had inr completed at [facility] patients inr is 2.9 (patients inr range [...] on 2019-01 OBSOLETE Refill (NEMOWS) Normal 02-17-2019 [facility] LOVELY DEVI ([id number]) 1945 M [place] Date Time Provider Department ([id number]) 02/17/19 NIK PUENTE During your visit today, [...] lower left neck ? Case Formulation / [place] (may include pt's hopes, fears, ex pectations, [...] skin Date Reviewed: 01/26/2019 Reviewed by: Linwood ([facility]) JAZZY Carpenter - Fully Assessed Reason for Visit: Refill Request [94] Order(s):traZODone (DESYREL) 50 mg tabletTake 1 tablet by mo [facility] daily at bedtime.Disp: 30 tabletRfl: 0 Prescriptions [...] cardiomyopathy [I25.5] 11/20/2017 Leukocytosis [D72.829] 01/29/2013 More... JESSCIA (obstructive sleep apnea) [G47.33] 07/26/2018 RLS (restless [...] Normal 02-17-2019 [facility] LOVELY DEVI ([id number]) 1945 [facility] Date Time Provider Department ([id number]) 02/17/19 DENIZ GARSIA During your visit today, [...] skin Date Reviewed: 01/26/2019 Reviewed by: Linwood ([facility]) JAZZY Carpenter - Fully Assessed Reason for [...] mouth once ajay * LANCETS Use with [employer] Glucometer * COLESTIPOL 1 GRAM TABLET Take [...] on file. Encounter Status:Closed by DENIZ GARSIA CYBER SECURITY ENGINEER on 02/17/19 obsolete on 2019-01 OBSOLETE Refill (FAMPWS) Normal 02-04-2019 Jose chapin [facility] LOVELY DEVI ([id number]) 1945 M [place] Date Time Provider Department ([id number]) 02/04/19 MORGAN VALDEZ III During your visit [...] skin Date Reviewed: 01/26/2019 Reviewed by: Linwood ([facility]) JAZZY Carpenter - Fully Assessed Reason for [...] mouth once ajay * LANCETS Use with [employer] Glucometer * COLESTIPOL 1 GRAM TABLET Take [...] 02/04/19 progress on 2018-12 PROGRESS HNO ID: [id number] Normal 01-26-2019 [facility] Author: Morgan Valdez III [place] ([id number]) Service: ? Author Type: Physician Type: Progress [...] G47.33 327.23 - fax compliance download to [phone] flash glucose sensor (FREESTYLE ANITRA 14 DAY [...] by mouth once daily. blood sugar diagnostic ([employer] BLOOD GLUCOSE SYSTEM) test s trip Use [...] of vessel, na tive or graft s/p MA in 1985 - Diverticulosis of colon (without [...] Alatorre MD, III MD PROGRESS HNO ID: [id number] Normal 01-26-2019 [facility] Author: Nik Amado ([id number]) Service: ? Author Type: Physician Type: Progress Notes Filed: 01/26/2019 12:22 PM Note Text: [facility] Follow-up/Established patient visit Reason for Visit: med review. Time Out: 9:10 Time In: 8:53 For this visit, a total irtf-tm-kmlg time with the patient c omprised 15 [...] lower left neck. ? Case Formulation / [place] (may include pt's hopes, fears, ex pectations, [...] G47.33 327.23 - fax compliance download to [phone] flash glucose sensor (FREESTYLE ANITRA 14 DAY [...] by mouth once daily. blood sugar diagnostic ([employer] BLOOD GLUCOSE SYSTEM) test s trip Use [...] mass lower left neck Case Formulation / [place] (may include pt's hopes, fears, ex pectations, [...] CNOV Office Visit (FAMPWS) Normal 01-27-20 19 [facility] LOVELY DEVI ([id number]) 1945 [facility] Date Time Provider Department ([id number]) 01/26/19 9:40 AM MORGAN VALDEZ III FAMPWS [...] humidity and lifetime supplies. Dx. JESSICA G47.33 327.39 - fax compliance download to [phone] flash glucose sensor (FREESTYLE ANITRA 14 DAY [...] by mouth once daily. blood sugar diagnostic ([employer] BLOOD GLUCOSE SYSTEM) test s trip Use [...] TOUCH ULTRASOFT LANCETS) lancets Us e with [employer] Glucometer as directed colestipol 1 gram tablet [...] of vessel, na tive or graft s/p MA in 1985 - Diverticulosis of colon (without [...] disease, with long-term current use of insulin ([facility]) 06/15/2017 - Unspecified essential hypertension FAMILY [...] III MD Referring Provider: MORGAN VALDEZ III [[id number]] Allergies As of Date: 01/26/2019 Noted Allergy Reaction MORPHINE 02/28/2005 ROCEPHIN (CEFTRIAXONE SODIUM) 06/20/2014 14 - Other: See Com ments Comments: Hot flashes; redness to skin Date Reviewed: 01/26/2019 Reviewed by: Linwood ([facility]) JAZZY Carpenter - Fully Assessed Reason for Visit: 3 month check up [Other] Primary Visit Diagnosis:Type 2 diabetes mellitus with st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, with long-term current use of insulin ([facility]) [E11.22, N18.3, Z79.4] Other Visit Diagnoses:Acute on chronic systolic congestive h eart failure ([facility]) [I50.23] Class 2 severe obesity due to excess calories with serious comorbidity and body mass index (BMI) of 38.0 to 38.9 in adult ([facility]) [E66.01, Z68.38] ASHD (arteriosclerotic heart disease) [I25.10] Paroxysmal atrial fibrillation ([facility]) [I48.0] Anticoagulated on Coumadin [Z79.01] Controlled type 2 diabetes mellitus without complication, with long-term current use of insulin ([facility]) [E11.9, Z79.4] Vitamin D 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] Order(s):HGB A1C [EURHV6U] Order #: [id number] FUTURE COMP METABOLIC PANEL [SQCMP] Order #: [id number] FUTURE insulin lispro (HUMALOG U-100 INSULIN) 100 unit/mL injection 18 units with breakfast, 17 units at lunch, and 24 units with supper. Disp: Rfl: VITAMIN D 25 HYDROXY [SQVITD] Order #: [id number] FUTURE Prescriptions as of 01/26/2019 Sig: TRAZODONE [...] 01/26/19 [place] Office Visit ([place]) Normal 01-27-20 [place] [facility] LOVELY DEVI ([id number]) 1945 M [place] Date Time Provider Department ([id number]) 01/26/19 8:40 AM NIK PUENTE During your visit today, we recorded the following informati on about you: Pulse Respiration Blood pressure Weight 60/minute 20/minute 130/82 121.1 kg Nik Puente MD 01/26/2019 12:22 PM Signed [facility] Follow-up/Established patient visit Reason for Visit: med review. Time Out: 9:10 Time In: 8:53 For this visit, a total adlt-sc-ykph time with the patient c omprised 15 minutes, with at least 50% of that time devoted to ouuy-vr-hdgn counseling and coordination of care, with especial emph asis placed on answering the patient?s and/or family?s questions in a form that they can unde rstand and appreciate. Relevant Medications, allergies, hx Reviewed: yes Date of last visit: 11/24/18 Insurance: Medicare Home Location: [place] From Last Visit: Sleep Disorder Dx Impression: Obstructive sleep apnea -?Compliant and beneffiting Residual daytime sleepiness.? ? Psychiatric Diagnoses: na ? Other Conditioning Diagnoses CAD, Afib, Petit's. Cardiomegaly, Obes ity, Dysphagia, HTN, Reflux, DM2,?Neck mass lower left neck. ? Case Formulation / [place] (may include pt's hopes, fears, ex pectations, [...] G47.33 327.23 - fax compliance download to [phone] flash glucose sensor (FREESTYLE ANITRA 14 DAY [...] by mouth once daily. blood sugar diagnostic ([employer] BLOOD GLUCOSE SYSTEM) test s trip Use [...] mass lower left neck Case Formulation / [place] (may include pt's hopes, fears, ex pectations, [...] Nik Puente MD Referring Provider: ARIANA BERNAL ([facility]) [[id number]] Allergies As of Date: 01/26/2019 Noted Allergy Reaction MORPHINE 02/28/2005 ROCEPHIN (CEFTRIAXONE SODIUM) 06/20/2014 14 - Other: See Com ments Comments: Hot flashes; redness to skin Date Reviewed: 01/26/2019 Reviewed by: Linwood ([facility]) JAZZY Carpenter - Fully Assessed Reason for [...] (BMI) of 38.0 to 38.9 in adult ([facility]) [E66.01, Z68.38] 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, 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, with long-term current use of insulin ([facility]) [E11.22, N18.3, Z79.4] Localized swelling, mass and lump, neck [R22.1] Type 2 diabetes mellitus with peripheral neuropathy ([facility]) [E11.42] Order(s):traZODone (DESYREL) 50 mg tabletTake [...] mouth once ajay * LANCETS Use with [employer] Glucometer * COLESTIPOL 1 GRAM TABLET Take [...] 01/26/19 progress on 2018-12 PROGRESS HNO ID: [id number] Normal 01-24-2019 [facility] Author: Linwood Carpenter MA [place] ([id number]) Service: ? Author Type: Engagement Manager Type: Progress Notes Filed: 01/24/2019 4:23 PM Note Text: Per PCP written response: PCP in agreement with instructions below. Tracker updated. Linwood Carpenter CMA PROGRESS HNO ID: [id number] Normal 01-24-2019 [facility] Author: Melany Yuen RN [place] ([id number]) Service: ? Author Type: ? Type: Progress Notes Filed: 01/24/2019 10:44 AM Note Text: patient had inr completed at [facility] patients inr is 2.9 (patients inr range [...] INR. progress on 2018-12 PROGRESS HNO ID: [id number] Normal 01-17-2019 [facility] Author: Linwood Carpenter MA [place] ([id number]) Service: ? Author Type: Engagement Manager Type: Progress Notes Filed: 01/17/2019 4:16 PM Note Text: Per PCP written response: Same coumadin, recheck on 01/31 as scheduled. Tracker updated . Patient notified, voiced understanding. Linwood Carpenter CMA PROGRESS HNO ID: [id number] Normal 01-17-2019 [facility] Author: Melany Yuen RN [place] ([id number]) Service: ? Author Type: ? Type: Progress [...] Cholesterol [Mass/Vol] 118 <200 mg/dL Normal 019 [facility] (47892) Comment: Result Comment: <200 mg/dL, Desirable 200-239 mg/dL, Borderline hi gh >239 mg/dL, High Performed By: #### CMP, LIPB , HBA1C ####[facility] [address] [place] [address] [phone] Cholesterol in HDL [Mass/Vol] 32 >39 mg/dL Low 01-14-2019 [facility] (16425) Comment: Result Comment: 40-59 mg/dL, Acceptable >59 mg/dL, High: Negative ri sk factor for coronary heart disease <40 mg/dL, Low: Positive ris k factor for coronary heart disease Performed By: #### CMP, LIPB , HBA1C ####[facility] [address] [place] [address] [phone] Cholesterol in LDL 52 <100 mg/dL Normal 01-14-2019 [facility] [Mass/Vol] [place] (90174) Comment: Result Comment: <100 mg/dL, Optimal 100-129 mg/dL, Near optimal/ above optimal 130-159 mg/dL, Borderline hi gh 160-189 mg/dL, High >189 mg/dL, Very high Secondary prevention optimal LDL Cholesterol levels are recommended to be < 70 mg/dL Performed By: #### CMP, LIPB , HBA1C ####[place] [address] [phone] Fasting Time 13 hrs Normal 01-14-2019 [facility] (68325) Comment: Performed By: #### CMP, LIPB , HBA1C ####[place] [address] [phone] LDL:HDL Ratio 1.63 <2.54 Normal 01-14-2019 [facility] (10941) Comment: Result Comment: Reference: 1. National Cholesterol Educ ation Program ATP III Guideline At-A-Glance Quick Desk Reference: National Heart, Lung, and Blood [place]. National Institutes of Health. 2001: NIH Publication No. 01-3305. 2. An International Atherosc lerosis Society position paper: global recommendations for the management of dyslipidemia: executive summary, Atherosclerosis. 2014: 232(2):410-413. Performed By: #### CMP, LIPB , HBA1C ####[place] [address] [phone] Non HDL Cholesterol 86 <130 mg/dL Normal 01-14-2019 [facility] (94344) Comment: Result Comment: <130 mg/dL, Optimal 130-159 mg/dL, Near optimal/ above optimal 160-189 mg/dL, Borderline hi gh 190-219 mg/dL, High >219 mg/dL, Very high Secondary prevention optimal non HDL Cholesterol levels are recommended to be < 100 mg/dL Performed By: #### CMP, LIPB , HBA1C ####[place] [address] [phone] TC:HDL Ratio 3.69 <5.10 Normal 01-14-2019 [facility] (29812) Comment: Performed By: #### CMP, LIPB , HBA1C ####[place] [address] [phone] Triglyceride [Mass/Vol] 172 <150 mg/dL High 2018 [facility] (12395) Comment: Result Comment: <150 mg/dL, Normal 150-199 mg/dL, Borderline hi gh 200-499 mg/dL, High >499 mg/dL, Very high Performed By: #### CMP, LIPB , HBA1C ####[address] [place] [address] [phone] VLDL Cholesterol 34 <30 mg/dL High 01-14-2019 [facility] (43928) Comment: Performed By: #### CMP, LIPB , HBA1C ####[address] [place] [address] [phone] hemoglobin a1c on 2 HbA1c (Bld) [Mass fraction] 7.3 4.3-5.6 % High [facility] (20399) Comment: Result Comment: [place] Dominique betes Association guidelines indicate that patients with HgbA1c in the range 5.7-6.4% are at increased risk for development of diabetes, and intervention by lifestyle modification may be beneficial. HgbA1c greater o r equal to 6.5% is considered diagnostic of diabetes. Performed By: #### CMP, LIPB , HBA1C ####[place] [address] [phone] HbA1c (Bld) [Mass fraction] 163 mg/dL Normal [facility] (90387) Comment: Result Comment: eAG: (Estima devin average glucose) is a calculated value from HgbA1c and is construction sales representative of the average blood glucose level in the last 2-3 month period. Performed By: #### CMP, LIPB , HBA1C ####[place] [address] [place] [place] [address] [phone] comp metabolic panel on 2019-01-14 Albumin [Mass/Vol] 4.3 3.9-4.9 g/dL Normal 01-14-2019 [facility] (73543) Comment: Performed By: #### CMP, LIPB , HBA1C ####[address] [place] [address] [phone] ALP [Catalytic activity/Vol] 54 38-113 U/L Normal 1 [facility] (98766) Comment: Performed By: #### CMP, LIPB , HBA1C ####[place] [address] [place] [place] [address] [phone] ALT [Catalytic activity/Vol] 23 10-54 U/L Normal 1 [facility] (92320) Comment: Performed By: #### CMP, LIPB , HBA1C ####[place] [address] [place] [place] [address] Anion gap [Moles/Vol] 11 9-18 mmol/L Normal 01-15-20 19 [facility] (82411) Comment: Performed By: #### CMP, LIPB , HBA1C ####[place] [address] [place] [place] [address] AST [Catalytic activity/Vol] 25 14-40 U/L Normal 1 [facility] (87225) Comment: Performed By: #### CMP, LIPB , HBA1C ####[place] [address] [place] [place] [place] [address] Bilirubin [Mass/Vol] 0.7 0.2-1.3 mg/dL Normal 9 [facility] (35745) Comment: Performed By: #### CMP, LIPB , HBA1C ####[place] [address] [place] [place] [place] [address] Calcium [Mass/Vol] 8.6 8.5-10.2 mg/dL Normal 01-14-2019 [facility] (16294) Comment: Performed By: #### CMP, LIPB , HBA1C ####[place] [address] [place] [place] [address] [phone] Chloride [Moles/Vol] 102 97-105 mmol/L Normal 9 [facility] (61089) Comment: Performed By: #### CMP, LIPB , HBA1C ####[place] [address] [place] [place] [address] CO2 [Moles/Vol] 27 22-30 mmol/L Normal 01-14-2019 [facility] (05010) Comment: Performed By: #### CMP, LIPB , HBA1C ####[facility] [address] [place] [place] [address] Creatinine [Mass/Vol] 1.24 0.73-1.22 mg/dL High 01-15-20 19 [facility] (92312) Comment: Performed By: #### CMP, LIPB , HBA1C ####[facility] [address] [place] [place] [address] eGFR- Amer. >60 Normal 01-14-2019 [facility] (52585) Comment: Performed By: #### CMP, LIPB , HBA1C ####[facility] [place] [address] GFR/1.73 sq M predicted among 57 . Normal 01-14-2019 [facility] non-blacks MDRD (S/P/Bld) [Vol (06836) rate/Area] Comment: Result Comment: eGFR (Estima devin [...] Performed By: #### CMP, LIPB , HBA1C ####[facility] [address] [place] [address] [phone] Glucose [Mass/Vol] 191 74-99 mg/dL High 01-14-2019 [facility] (05015) Comment: Result Comment: The [place] Diabetes Association (ADA) provides guidance for cutoff [...] for diagnosis of diabetes. Reference: Standards of [facility] Care in Diabetes 2016, [place] Diabetes Association. Diabetes Care. 2016.39(Suppl 1). Performed By: #### CMP, LIPB , HBA1C ####[place] [address] [place] [place] [address] [phone] Potassium [Moles/Vol] 4.5 3.7-5.1 mmol/L Normal 01-15-20 19 [facility] (39816) Comment: Performed By: #### CMP, LIPB , HBA1C ####[place] [address] [place] [place] [address] [phone] Protein [Mass/Vol] 6.7 6.3-8.0 g/dL Normal 01-14-2019 [facility] (73947) Comment: Performed By: #### CMP, LIPB , HBA1C ####[facility] [place] [address] [phone] Sodium [Moles/Vol] 140 136-144 mmol/L Normal 01-14-2019 [facility] (40908) Comment: Performed By: #### CMP, LIPB , HBA1C ####[facility] [place] [address] [phone] Urea nitrogen [Mass/Vol] 23 9-24 mg/dL Normal 01-14 [facility] (15608) Comment: Performed By: #### CMP, LIPB , HBA1C ####[facility] [place] [address] [phone] cnnurse on [facility] Nurse Visit (FAMPWS) Normal 9 [facility] LOVELY DEVI ([id number]) 1945 M [place] Date Time Provider Department (84488) 01/14/19 11:20 AM MA NURSE SABI During your visit today, we [...] mouth once ajay * LANCETS Use with [employer] Glucometer * COLESTIPOL 1 GRAM TABLET Take [...] 2019-01-14 Absolute nRBC <0.01 <0.01 Normal 01-14-2019 [facility] (73576) Comment: Performed By: #### CBC #### [facility] [address] [place], [place] [address] Erythrocyte distribution 14.6 11.5-15.0 % Normal 01-14 [facility] width (RBC) [Ratio] [place] (87787) Comment: Performed By: #### CBC #### [facility] [address] [place], [place] [address] Hematocrit (Bld) [Volume 37.9 39.0-51.0 % Low 01-14 [facility] fraction] (44873) Comment: Performed By: #### CBC #### [facility] [address] [place], [place] [address] Hemoglobin (Bld) 12.0 13.0-17.0 g/dL Low 01-14-2019 Cl [facility] [Mass/Vol] [place] (71819) Comment: Performed By: #### CBC #### [facility] [place], [place] [address] MCH (RBC) [Entitic mass] 29.4 26.0-34.0 pG Normal 01-14 [facility] (80809) Comment: Performed By: #### CBC #### [facility] [address] [place], [place] [address] MCHC (RBC) [Mass/Vol] 31.7 30.5-36.0 g/dL Normal 01-15-20 19 [facility] (67837) Comment: Performed By: #### CBC #### [facility] [address] [place] [address] MCV (RBC) [Entitic vol] 92.9 80.0-100.0 fL Normal 01-14 [facility] (84894) Comment: Performed By: #### CBC #### [facility] [address] [address] Platelet mean volume 10.5 9.0-12.7 fL Normal 9 [facility] (Bld) [Entitic vol] [place] (71165) Comment: Performed By: #### CBC #### [address] [address] Platelets (Bld) [#/Vol] 154 150-400 k/uL Normal 2018 [facility] (03628) Comment: Performed By: #### CBC #### [address] [address] RBC (Bld) [#/Vol] 4.08 4.20-6.00 m/uL Low 01-14-2019 C [facility] (40532) Comment: Performed By: #### CBC #### [facility] [address] [place], [place] [address] WBC (Bld) [#/Vol] 4.90 3.70-11.00 k/uL Normal 01-14-2019 [facility] (23851) Comment: Performed By: #### CBC #### [facility] [address] [place] [phone] albumin/creat ratio on 2019-01-14 Albumin Urine Random 15.6 mg/L Normal 9 [facility] (99573) Comment: Performed By: #### UACR #### [place] [address] [place], [place] [phone] Albumin/Creat Ratio 8 <30 mg/g Normal 01-14-2019 [facility] (00071) Comment: Result Comment: Adult Male a nd [...] 3(1), 1-150. Performed By: #### UACR #### [place] [address] [place], [place] [phone] Creatinine,Urine,Ran 206.0 20-300 mg/dL Normal 9 [facility] (87210) Comment: Performed By: #### UACR #### [facility] [place], [place] [phone] cnptoutreach on 12-07-14 CNPTOUTREACH Patient Outreach (FAMPST) Normal 1 [place] [facility] [facility] ANA ROSAALMITALOVELY CARY ([id number]) 1945 [facility] Date Time Provider Department (79634) 01/11/19 MORGAN VALDEZ III During your visit [...] Order(s):ALBUMIN/CREAT RATIO RND UR [SQUACR] Order #: [id number] FUTURE CBC [SQCBC] Order #: [id number] FUTURE Prescriptions as of 01/11/2019 Sig: LISINOPRIL [...] mouth once ajay * LANCETS Use with [employer] Glucometer * COLESTIPOL 1 GRAM TABLET Take [...] congestive heart fail*INVALID FOR* Encounter Status:Closed by [employer], PRODUSER on 01/26/19 main or intraop record on 2017-02-23 Main OR Intraop Record Normal 02-23- 017 [facility]) (82858) progress note-nurse on 2017-02-17 Progress Note-Nurse Normal 02-17-2017 [facility]) (93075) pro on 2017-02-17 INR Coag RelTime (PPP) 1.5 ratio Normal 017 [facility]) (03527) Comment: Result Comment: The [place] [employer] (CHEST, 1991, 102:312S-25S)recommended the rapeutic range for oral anticoagulant therapy is:LOW RISK: Prophylaxis of venous thrombosis INR: 2.0-3.0 Treatment of pulmonary embolism 2.0-3.0 P revention of systemic embolism 2.0-3.0HIGH RISK: Mechanical prosthetic valves 2.5-3.5 Performed By: #### CBC, ADIF F, ANEU, FIB, APTT, PRO, BMP, GFR ####[place] [address] Prothrombin time (PT) 17.7 9.0-14.5 seconds High 02-18-20 17 [facility] Coag time (PPP) [facility]) (67657) Comment: Result Comment: Effective , Protime results may be affected by some antibiotics (i.e. Ciprofloxa patrice, Azithromycin, Bactrim) which may potentiate the action of oral anticoagu lants, with further increases in Protime/INR. Performed By: #### CBC, ADIF F, ANEU, FIB, APTT, PRO, BMP, GFR ####[place] [address] fib on 2017-02-17 Fibrinogen 302 250-550 mg/dL Normal 02-17-2017 [facility] ([place]) (33512) Comment: Performed By: #### CBC, ADIF F, ANEU, FIB, APTT, PRO, BMP, GFR ####[place] [address] cbc on 2017-02-17 Erythrocyte distribution 13.8 11.5-15.5 % Normal 02-17 [facility] Auto Ratio (RBC) [facility] ([place]) (06006) Comment: Performed By: #### CBC, ADIF F, ANEU, FIB, APTT, PRO, BMP, GFR ####[place] [address] Erythrocytes (RBC) 4.38 4.50-6.00 10 6/mcL Low 02-17-2017 [facility] ([place]) (0000 0) Comment: Performed By: #### CBC, ADIF F, ANEU, FIB, APTT, PRO, BMP, GFR ####[place] [address] Hematocrit (HCT) 37.6 40.0-52.0 % Low 02-17-2017 [facility] ([place]) (97865) Comment: Performed By: #### CBC, ADIF F, ANEU, FIB, APTT, PRO, BMP, GFR ####[place] [address] Hemoglobin mass conc 12.9 13.0-17.5 G/dL Low 7 [facility] (d) ([place]) (0000 0) Comment: Performed By: #### CBC, ADIF F, ANEU, FIB, APTT, PRO, BMP, GFR ####[place] [address] MCH 29.4 27.0-33.0 pg Normal 02-17-2017 [facility] ([place]) (67374) Comment: Performed By: #### CBC, ADIF F, ANEU, FIB, APTT, PRO, BMP, GFR ####[place] [address] MCHC mass conc (RBC) 34.2 32.0-36.0 G/dL Normal 7 [facility] ([place]) (0000 0) Comment: Performed By: #### CBC, ADIF F, ANEU, FIB, APTT, PRO, BMP, GFR ####[place] [address] MCV 85.9 81.0-100.0 fL Normal 02-17-2017 [facility] ([place]) ([address]231) Comment: Performed By: #### CBC, ADIF F, ANEU, FIB, APTT, PRO, BMP, GFR ####[place] [address] Platelet mean volume 8.0 6.4-10.5 fL Normal [address] [place] [address] (V) ([place]) (0000 0) Comment: Performed By: #### CBC, ADIF F, ANEU, FIB, APTT, PRO, BMP, GFR ####[place] [address] Platelets 164 150-450 10 3/mcL Normal 02-17-2017 [facility] ([place]) ([id number]) Comment: Performed By: #### CBC, ADIF F, ANEU, FIB, APTT, PRO, BMP, GFR ####[place] [address] WBC (Leukocytes) 6.10 4.50-10.80 10 3/mcL Normal 02-17-2017 [facility] ([place]) (0000 0) Comment: Performed By: #### CBC, ADIF F, ANEU, FIB, APTT, PRO, BMP, GFR ####[place] [address] bmp on 2017-02-17 BUN/Creatinine Ratio 31.8 10.0-22.0 ratio High 7 [facility] ([place]) (0000 0) Comment: Performed By: #### CBC, ADIF F, ANEU, FIB, APTT, PRO, BMP, GFR ####[place] [address] Calcium 8.8 8.4-10.1 mg/dL Normal 02-17-2017 [facility]) ([id number]) Comment: Performed By: #### CBC, ADIF F, ANEU, FIB, APTT, PRO, BMP, GFR ####[place] [address] Chloride 109 98-110 mEq/L Normal 02-17-2017 [facility] ([place]) ([id number]) Comment: Performed By: #### CBC, ADIF F, ANEU, FIB, APTT, PRO, BMP, GFR ####[place] [address] CO2 27 22-32 mEq/L Normal 02-17-2017 [facility] ([place]) ([id number]) Comment: Performed By: #### CBC, ADIF F, ANEU, FIB, APTT, PRO, BMP, GFR ####[place] [address] Creatinine 1.10 0.60-1.40 mg/dL Normal 02-17-2017 [facility] ([place]) ([id number]) Comment: Performed By: #### CBC, ADIF F, ANEU, FIB, APTT, PRO, BMP, GFR ####[place] [address] Electrolyte Balance 7.0 4.0-15.0 mEq/L Normal 02-17-2017 [facility] ([place]) (0000 0) Comment: Performed By: #### CBC, ADIF F, ANEU, FIB, APTT, PRO, BMP, GFR ####[place] [address] Glucose mass conc 99 82-115 mg/dL Normal 02-17-2017 A [facility] ([place]) ([id number]) Comment: Performed By: #### CBC, ADIF F, ANEU, FIB, APTT, PRO, BMP, GFR ####[place] [address] Potassium molar conc 4.0 3.5-5.0 mEq/L Normal 7 [facility] ([place]) (0000 0) Comment: Performed By: #### CBC, ADIF F, ANEU, FIB, APTT, PRO, BMP, GFR ####[place] [address] Sodium 143 136-145 mEq/L Normal 02-17-2017 [facility] ([place]) ([id number]) Comment: Performed By: #### CBC, ADIF F, ANEU, FIB, APTT, PRO, BMP, GFR ####[place] [address] Urea nitrogen 35.0 8.0-22.0 mg/dL High 02-17-2017 [facility] ([place]) ([id number]) Comment: Performed By: #### CBC, ADIF F, ANEU, FIB, APTT, PRO, BMP, GFR ####[place] [address] aptt on 2017-02-17 aPTT 32.6 25.0-35.0 seconds Normal 02-17-2017 [facility] ([place]) ([id number]) Comment: Result Comment: For Heparin anticoagulation therapy, the recommendedtherapeutic range is: 54-77 seconds (APTT Correlationwith Anti-Xa therapeutic range of 0.3-0.7 units/ml).PLEASE REFERENCE THE PHARMACY PROTOCOL FOR DOSING. Performed By: #### CBC, ADIF F, ANEU, FIB, APTT, PRO, BMP, GFR ####[place] [address] aPTT Coumadin PO Normal 02-17-2017 [facility] ([place]) ([id number]) Comment: Performed By: #### CBC, ADIF F, ANEU, FIB, APTT, PRO, BMP, GFR ####[place] [address] .neuabs on Neutrophils 4.30 2.25-8.10 10 3/mcL Normal 02-17-2017 [facility] ([place]) ([id number]) Comment: Performed By: #### CBC, ADIF F, ANEU, FIB, APTT, PRO, BMP, GFR ####[place] [address] .gfr on 2017-02-17 eGFR (non-black) >60 mL/min/{1.73_m2} Normal 2016 [facility] ([place]) (0000 0) Comment: Result Comment: GFR Populati [...] F, ANEU, FIB, APTT, PRO, BMP, GFR ####[place] [address] .auto diff on 02-17 Basophils Auto #/vol 0.10 0.00-0.27 10 3/mcL Normal 7 [facility] ([facility]) [facility] ([place]) ([id number]) Comment: Performed By: #### CBC, ADIF F, ANEU, FIB, APTT, PRO, BMP, GFR ####[address] [address] Basophils/100 WBC Auto (Bld) 1.1 0.0-2.5 % Normal 1 04-19-2016 [facility] ([place]) (0000 0) Comment: Performed By: #### CBC, ADIF F, ANEU, FIB, APTT, PRO, BMP, GFR ####[address] [address] Eosinophils 0.20 0.00-0.65 10 3/mcL Normal 02-17-2017 [facility] ([place]) ([id number]) Comment: Performed By: #### CBC, ADIF F, ANEU, FIB, APTT, PRO, BMP, GFR ####[address] [address] Eosinophils/100 leukocytes 2.7 0.0-6.0 % Normal [facility] ([place]) (0000 0) Comment: Performed By: #### CBC, ADIF F, ANEU, FIB, APTT, PRO, BMP, GFR ####[address] [address] Lymphocytes 1.10 0.90-4.32 10 3/mcL Normal 02-17-2017 [facility] ([place]) ([id number]) Comment: Performed By: #### CBC, ADIF F, ANEU, FIB, APTT, PRO, BMP, GFR ####[address] [address] Lymphocytes/100 leukocytes 17.9 20.0-40.0 % Low [facility] ([place]) (0000 0) Comment: Performed By: #### CBC, ADIF F, ANEU, FIB, APTT, PRO, BMP, GFR ####[address] [address] Monocytes 0.50 0.09-1.40 10 3/mcL Normal 02-17-2017 [facility] ([place]) ([id number]) Comment: Performed By: #### CBC, ADIF F, ANEU, FIB, APTT, PRO, BMP, GFR ####[address] [address] Monocytes/100 leukocytes 8.5 2.0-13.0 % Normal 02-17 [facility] ([place]) (0000 0) Comment: Performed By: #### CBC, ADIF F, ANEU, FIB, APTT, PRO, BMP, GFR ####[facility] [place] [address] Neutrophils/100 WBC Auto 69.8 50.0-75.0 % Normal 02-17 [facility] (d) [facility] ([place]) ([id number]) Comment: Performed By: #### CBC, ADIF F, ANEU, FIB, APTT, PRO, BMP, GFR ####[facility] [place] [address] office visit: mmm o n 2017-01-01 Documentation of Done Invalid Interpretation 01-01-2017 - [facility] current medications Code 01-01-2017 Group ([id number]) (procedure) Fall risk assessment No Invalid Interpretat ion 01-01-2017 - [facility] Code 01-01-2017 Group (44 [id number]) Protein mass conc Done Invalid Interpretation 01-01-2017 - [facility] Code 01-01-2017 Group (44 691) clinical lists update: preload on 2016-12-30 Left ventricular 35 % Invalid Interpretation 12-30-2016 - [facility] Ejection fraction Code 12-30-2016 Ney gilmore ([id number]) chart maintenance o n 2016-11-16 Anion gap 9 mmol/L Invalid 11-16-2016 - [facility] Interpretation Code 11-16-2016 Group ([id number]) Anion gap 4 molar 9 Invalid 11-16-2016 - [facility] conc Interpretation Code 11-16-2016 Group ([id number]) Anion gap molar 9 mmol/L 11-16-2016 - [place] conc 11-16-2016 Medical S [employer] (56535 ) basophils as 0.5 % Invalid 11-16-2016 - [place] percent of blood Interpretation Code Medical Service, [facility] (135 86) manual count Calcium mass conc 8.3 mg/dL Low 11-16-2016 - [place] 11-16-2016 Medical S [employer], [employer] (45457 ) Chloride molar 105 mmol/L High 11-16-2016 - [place] conc 11-16-2016 Medical S ervice, [facility] (77561 ) Cholesterol in 30 mg/dL Low 11-16-2016 - [place] HDL mass conc 11-16-2016 Medic al Service, [facility] (92326 ) Cholesterol in 27 mg/dL Invalid 11-16-2016 - [place] LDL mass conc Interpretation Code [address] [facility], [facility] ([id number] ) Cholesterol mass 124 mg/dL Invalid 11-16-2016 - [place] conc Interpretation Code 11-16-2016 Medical Service, [facility] ([id number] ) CO2 25.0 mmol/L Invalid 11-16-2016 - [facility] Interpretation Code 11-16-2016 Group ([id number]) CO2 ppres (BldV) 25.0 mmol/L Invalid 11-16-2016 - [place] Interpretation Code 11-16-2016 Medical Service, [facility] (87010 ) Creatinine mass 1.20 mg/dL Invalid 11-16-2016 - [place] conc Interpretation Code 11-16-[address] [facility], [facility] (60732 ) eGFR (non-black) 77 mL/min/1.73 Invalid 11-16-2016 - [facility] m2 Interpretation Code 11-16-2016 Group ([id number]) eosinophils as 3.4 % Invalid 11-16-2016 - [place] percent of blood Interpretation Code Medical [facility], leukocytes, [facility] (447 91) manual count Erythrocyte 15.0 % High 11-16-2016 - [place] [facility] distribution 11-16-2016 Group (05410) width Auto Ratio (RBC) Erythrocyte 15.0 % High 11-16-2016 - [place] distribution 11-16-2016 Medica l Service, width Ratio (RBC) LL C (55599) GFR/1.73 sq M 63 mL/min/1.73 Invalid 11-16-2016 - [place] predicted among m2 Interpretation Code 10-29 Medical Service, non-blacks [employer] [facility] (76015) vol rate/area (S/P/Bld) Glomerular 77 mL/min/1.73 Invalid 11-16-2016 - [place] Filtration Rate m2 Interpretation Code 10-29 [facility] (98248) Glucose mass conc 287 mg/dL High 11-16-2016 - [place] 11-16-2016 [email or web address] (07596 ) Hematocrit Auto 33.2 % Low 11-16-2016 - [place] [facility] Volume Fraction 11-16-2016 Heather up (18849) (Bld) Hematocrit Volume 33.2 % Low 11-16-2016 - [place] Fraction (Bld) 11-16-2016 [facility] ana [employer] (89022 ) Hemoglobin mass 11.4 g/dL Low 11-16-2016 - [place] conc (Bld) 11-16-2016 [employer] (32463 ) Lipoprotein.pre-b 67 mg/dL High 11-16-2016 - [place] eta mass conc 11-16-2016 Nidmi al [employer] (60866 ) Lymphocytes/100 26.6 % 11-16-2016 - [place] WBC (Bld) 11-16-2016 [email or web address] (27620 ) Lymphocytes/100 26.6 % Invalid 11-16-2016 - [place] [facility] WBC Auto (Bld) Interpretation Code 11-16 Group (51742) MCH Auto Entitic 29.9 pg Invalid 11-16-2016 - [facility] mass (RBC) Interpretation Code 7 Group (83839) MCH Entitic mass 29.9 pg 11-16-2016 - [place] (RBC) 11-16-2016 [email or web address] (41996 ) MCHC Auto mass 34.3 g/dL Invalid 11-16-2016 - [place] [facility] conc (RBC) Interpretation Code 7 Group (75316) MCHC mass conc 34.3 g/dL 11-16-2016 - [place] (RBC) 11-16-2016 [email or web address] (29492 ) MCV Auto Entitic 87.1 fL Invalid 11-16-2016 - [facility] volume (RBC) Interpretation Code 017 Group (43684) MCV Entitic 87.1 fL 11-16-2016 - [place] volume (RBC) 11-16-2016 Nidmia l [employer] (13979 ) Monocytes/100 WBC 9.7 % 11-16-2016 - [place] (Bld) 11-16-2016 [email or web address] (60014 ) Monocytes/100 WBC 9.7 % Invalid 11-16-2016 - [facility] Auto (Bld) Interpretation Code 7 Group (52765) Platelet mean 9.9 fL 11-16-2016 - [place] volume Entitic 11-16-2016 [facility] Service, volume (Bld) LLC (44 691) Platelet mean 9.9 fL Invalid 11-16-2016 - [place] [facility] volume Moiz-Annie Interpretation Code Group ([id number]) Entitic volume (Bld) Platelets #/vol 157 10*3/mm3 11-16-2016 - [place] (Bld) 11-16-2016 Medical S [employer] (45693 ) Platelets Auto 157 10*3/mm3 Invalid 11-16-2016 - [place] [facility] #/vol (Bld) Interpretation Code 11-17-19 17 Group (96062) Potassium molar 3.7 mmol/L Invalid 11-16-2016 - [place] conc Interpretation Code 11-16-2016 [employer] [facility] (46998 ) RBC #/vol (Bld) 3.81 10*6/uL Low 11-16-2016 - [place] 11-16-2016 Medical S [employer] (86480 ) RBC Auto #/vol 3.81 10*6/uL Low 11-16-2016 - [place] [facility] (Bld) 11-16-2016 Group (44 281) Sodium molar conc 139 mmol/L Invalid 11-16-2016 - [place] Interpretation Code 11-16-2016 [employer] [facility] (95120 ) Triglyceride mass 336 mg/dL High 11-16-2016 - [place] conc 11-16-2016 [employer] [facility] [employer] (01556 ) Urea nitrogen 24 mg/dL High 11-16-2016 - [place] mass conc 11-16-2016 [email or web address] (16980 ) Urea 20.0 mg/mg Invalid 11-16-2016 [facility] nitrogen/Creatini Interpretation Code Medical TherapeuticsMD, pa mass ratio [facility] (4 9296) very low density 67 mg/dL High 11-16-2016 - [facility] lipoproteins 11-16-2016 Group (94570) WBC #/vol (Bld) 4.4 10*9/L 11-16-2016 - [place] 11-16-2016 Medical [employer] (25357 ) WBC Auto #/vol 4.4 10*9/L Invalid 11-16-2016 - [place] [facility] (Bld) Interpretation Code 11-16-2016 Group ([id number]) chart maintenance o n 2016-11-15 INR Coag RelTime 2.5 {INR} Invalid 11-15-2016 [facility] (PPP) Interpretation Code 11-15-2016 [employer] (47957 ) Prothrombin time 25.7 s High 11-15-2016 [facility] (PT) [facility] [employer] ([id number] ) office visit on 10-03-07 Documentation of Done Invalid 09-04-2016 - [facility] current medications Interpretation Code 09-04-2016 Group (40505) (procedure) Fall risk assessment No Invalid Heart Interpretation Code 09-04-2016 Group (45120) Protein mass conc Done Invalid 09-04-2016 - [place] Interpretation Code 09-04-2016 [employer] (01603 ) clinical lists update: preload on 2016-09-03 Left ventricular 35 % Invalid Interpretation 09-03-2016 - [facility] Ejection fraction Code 09-03-2016 G roup (33902) clinical lists update: preload on 2016-07-01 Anion gap 9 mmol/L Invalid 07-01-2016 - [facility] Interpretation Code 07-01-2016 [facility] (58145) BUN/Creatinine 23.1 mg/mg High 07-01-2016 - [place] Ratio 07-01-2016 Heart Heather up (43485) Calcium 8.7 mg/dL Invalid 07-01-2016 - [facility] Interpretation Code 07-01-2016 [facility] (06116) Chloride 103 mmol/L Invalid 07-01-2016 - [facility] Interpretation Code 07-01-2016 [facility] ([id number]) CO2 28..0 Invalid 07-01-2016 - [facility] Interpretation Code 07-01-2016 [facility] (50666) Creatinine 1.30 mg/dL Invalid 07-01-2016 - [place] Interpretation Code 07-01-2016 [facility] ([id number]) eGFR (non-black) 70 mL/min/1.73m Invalid 07-01-2016 - [facility] 2 Interpretation Code 07-01-2016 [facility] ([id number]) eGFR (non-black) 58 mL/min/1.73m Low 07-01-2016 - [facility] 2 07-01-2016 Heart [facility] up (54750) Erythrocytes (RBC) 4.58 10*6/uL Low 07-01-2016 - [facility] 07-01-2016 Heart [facility] up (07425) Glucose 195 mg/dL High 07-01-2016 - [facility] 07-01-2016 [facility] up (91837) Hematocrit (HCT) 41.2 % Invalid 07-01-2016 - [facility] Interpretation Code 07-01-2016 [facility] (59247) Hemoglobin (HGB) 13.6 g/dL Invalid 07-01-2016 - [facility] Interpretation Code 07-01-2016 [facility] (10599) MCH 29.7 pg Invalid 07-01-2016 - [facility] Interpretation Code 07-01-2016 [facility] (72324) MCHC 33.0 g/dL Invalid 07-01-2016 - [facility] Interpretation Code 07-01-2016 [facility] (55202) MCV 90.0 fL Invalid 07-01-2016 - [facility] Interpretation Code 07-01-2016 [facility] (12571) Platelets 172 10*3/mm3 Invalid 07-01-2016 - [facility] Interpretation Code 07-01-2016 [facility] ([id number]) PMV by iCndi 9.8 fL Invalid 07-01-2016 - [facility] Interpretation Code 07-01-2016 [facility] (02653) Potassium 3.8 mmol/L Invalid 07-01-2016 - [facility] Interpretation Code 07-01-2016 [facility] (55149) RDW-CA 13.8 % Invalid 07-01-2016 - [facility] Interpretation Code 07-01-2016 [facility] (61151) Sodium 140 mmol/L Invalid 07-01-2016 - [facility] Interpretation Code 07-01-2016 [facility] (40309) Urea nitrogen 30 mg/dL High 07-01-2016 - [place] 07-01-2016 Heart [facility] up (72336) WBC (Leukocytes) 4.9 10*9/L Invalid 07-01-2016 - [facility] Interpretation Code 07-01-2016 [facility] ([id number]) replaced document: midmark ecg observati ons on 2016-06-19 BUN (urea nitrogen) Sinus Rhythm Invalid 017 - [facility] -Frequent pvcs Interpretation 06-19-2016 Group (40214) -ventricular Code bigeminy -Right bundle branch block. - Inferior -lateral infarct (age undetermined). ABNORMAL EKG QRS axis -12 deg Invalid 06-19-2016 - [place] Interpretation 06-19-2016 Medi ana Code Service, L LC ([id number]) GE use only - for 428 ms Invalid 06-19-2016 - [facility] [employer] import Interpretation 06-20-19 17 Group ([id number]) when terms are not Code otherwise specified P Elmo 40 deg Invalid 06-19-2016 - [place] Interpretation 06-19-2016 Medi ana Code Service, L LC ([id number]) P wave axis, 40 deg Invalid 06-19-2016 [facility] electrocardiogram Interpretation 017 Group (37474) Code NE Interval 156 ms Invalid 06-19-2016 - [place] Interpretation 06-19-2016 Medi ana Code Service, L LC (52030) NE interval, 156 ms Invalid 06-19-2016 [facility] electrocardiogram Interpretation 017 Group (98807) Code Pulse (Heart Rate) 81 BPM /min Invalid 06-19-2016 - [facility] Interpretation 06-19-2016 Grou p (14615) Code QRS axis, -12 deg Invalid 06-19-2016 - [facility] electrocardiogram Interpretation 017 Group (27492) Code QRS Duration 144 ms Invalid 06-19-2016 - [place] Interpretation 06-19-2016 Medi ana Code Service, L LC ([id number]) QRS duration, 144 ms Invalid 06-19-2016 - [place] [facility] electrocardiogram Interpretation 017 Group (19538) Code QT Interval new path ms Invalid 06-19-2016 - [place] Interpretation 06-19-2016 Medi ana Code Service, L LC (83157) QT interval, new path ms Invalid 06-19-2016 - [place] [facility] electrocardiogram Interpretation 017 Group (54157) Code QTc Hung 428 ms Invalid 06-19-2016 - [place] Interpretation 06-19-2016 Medi ana Code Service, L LC ([id number]) T Elmo -1 deg Invalid 06-19-2016 - [place] Interpretation 06-19-2016 Medi ana Code Service, L LC ([id number]) T wave axis, -1 deg Invalid 06-19-2016 - [facility] electrocardiogram Interpretation 017 Group (22970) Code Urea nitrogen mass Sinus Rhythm 06-20-19 17 - [place] conc -Frequent pvcs 06-19-2016 [facility] ana -ventricular Service , [facility] bigeminy -Right (446 91) bundle branch block. - Inferior -lateral infarct (age undetermined). ABNORMAL office visit on 09-29-22 Documentation of Done Invalid Interpretation 06-19-2016 - [facility] current medications Code 06-19-2016 Group ([id number]) (procedure) Fall risk assessment No Invalid Interpretat ion 06-19-2016 - [facility] Code 06-19-2016 Group (04 621) lab report: magnesium on 2016-06-19 Magnesium 2.0 1.8-2.4 mg/dL Invalid Interpretation 017 - [facility] Code 06-19-2016 Group (44 651) lab report: basic metabolic profile (bmp ) on 2016-06-19 Anion gap 8 5-15 mmol/L Invalid 06-19-2016 - [facility] Interpretation 06-19-2016 Grou p (55950) Code BUN/Creatinine 20.4 10-20 High 06-19-2016 - [place] [facility] Ratio RATIO 06-19-2016 Group (33 831) Calcium 9.1 8.5-10.1 mg/dL Invalid 06-19-2016 - [facility] Interpretation 06-19-2016 Grou p ([id number]) Code Chloride 103 98-107 mmol/L Invalid 06-19-2016 - [facility] Interpretation 06-19-2016 Grou p (85501) Code CO2 30.0 21.0-32. mmol/L Invalid 06-19-2016 - [facility] 0 Interpretation 06-19-2016 Grou p ([id number]) Code Creatinine 1.13 0.70-1.3 mg/dL Invalid 06-19-2016 - [place] [facility] 0 Interpretation 06-19-2016 Grou p ([id number]) Code eGFR 82 >60 mL/min Invalid 06-19-2016 - [facility] (non-black) Interpretation 06-19-2016 Gr oup (29814) Code eGFR 68 >60 mL/min Invalid 06-19-2016 - [facility] (non-black) Interpretation 06-19-2016 Gr oup (47827) Code EST GFR - AA 82 >60 mL/min Invalid 06-19-2016 - [place] Interpretation 06-19-2016 [facility] ana Code Service, L LC ([id number]) Glucose 93 70-110 mg/dL Invalid 06-19-2016 - [facility] Interpretation 06-19-2016 Grou p (66540) Code Potassium 3.9 3.5-5.1 mmol/L Invalid 06-19-2016 - [facility] Interpretation 06-19-2016 Grou p ([id number]) Code Sodium 141 136-145 mmol/L Invalid 06-19-2016 - [facility] Interpretation 06-19-2016 Grou p ([id number]) Code Urea nitrogen 23 7-18 mg/dL High 06-19-2016 - [place] [facility] 06-19-2016 Group (44 161) clinical lists update: preload on 2016-05-31 Hematocrit (HCT) 36.8 % Low 05-31-2016 - [facility] 05-31-2016 Group (44 631) Hemoglobin (HGB) 11.9 g/dL Low 05-31-2016 - [facility] 05-31-2016 Group (44 051) Platelets 152 10*3/mm3 Invalid 05-31-2016 - [facility] Interpretation Code 05-31-2016 Group ([id number]) lab report: liver profile on 2016-05-21 Alanine 33 12-78 U/L Invalid 05-21-2016 - [facility] aminotransferase Interpretation 05-21-19 17 Group ([id number]) (ALT) Code Albumin 4.1 3.4-5.0 g/dL Invalid 05-21-2016 - [facility] Interpretation 05-21-2016 Grou p ([id number]) Code Alkaline phosphatase 60 45-117 U/L Invalid 7 - [facility] (ALP) Interpretation 05-21-2016 Grou p ([id number]) Code ALP enzyme act/vol 60 45-117 U/L Invalid 05-21-2016 - [place] (Bld) Interpretation 05-21-2016 Medi ana Code Service, L LC ([id number]) Aspartate 27 15-37 U/L Invalid 05-21-2016 - [facility] aminotransferase Interpretation 05-21-19 17 Group ([id number]) (AST) Code Bilirubin (direct) 0.06 0.00-0.30 mg/dL Invalid 05-21-2016 - [facility] Interpretation 05-21-2016 Grou p ([id number]) Code Bilirubin (total) 0.40 0.20-1.00 mg/dL Invalid 05-21-2016 - [facility] Interpretation 05-21-2016 Grou p ([id number]) Code Globulin 2.9 2.3-3.5 g/dL Invalid 05-21-2016 - [facility] Interpretation 05-21-2016 Grou p ([id number]) Code Globulin mass conc 2.9 2.3-3.5 g/dL 05-21-2016 - [place] (S) 05-21-2016 Medical Service, LC (40510) Protein 7.0 6.4-8.2 g/dL Invalid 05-21-2016 - [facility] Interpretation 05-21-2016 Grou p ([id number]) Code lab report: lipid profile on 2016-05-21 Cholesterol 140 200 mg/dL Invalid 05-21-2016 - [place] [facility] Interpretation Code 05-21-2016 Group (51354) HDL Cholesterol 40 mg/dL Invalid 05-21-2016 - [place] [facility] Interpretation Code 05-21-2016 Group ([id number]) LDL Cholesterol 68 0-130 mg/dL Invalid 05-21-2016 - [place] [facility] Interpretation Code 05-21-2016 Group (35634) Triglyceride 158 mg/dL Invalid 05-21-2016 - [facility] Interpretation Code 05-21-2016 Group (08613) very low density 32 5-40 mg/dL Invalid 05-21-2016 - [facility] lipoproteins Interpretation Code 017 Group (59882) office visit on 09-09-15 Dietary yes Invalid 03-14-2016 - [facility] management Interpretation Code 6 Group (65226) education, guidance, and counseling (procedure) Tobacco smoking Former Invalid 03-14-2016 - [place] status NHIS smoker Interpretation Code 03-14-20 Medical Service, [facility] (04646 ) Tobacco use CPHS Former Invalid 03-14-2016 - [facility] smoker Interpretation Code 03-14-2016 Group ([id number]) lab report: prothrombin time w/inr on 2016-03-14 Coagulation 18.7 SECONDS 11.7-14.9 High 03-14-2016 - [place] tissue factor 03-14-2016 Heart Group induced in (22974) platelet poor plasma INR in blood by 1.6 {INR Invalid 03-14-2016 - [place] coagulation } Interpretation 03-14-2016 He art Group Code ([id number]) lab report: prothrombin time fingerstick on 2016-02-15 Coagulation 12.9 SEC 11.9-14.4 Invalid 02-15-2016 - [place] tissue factor Interpretation Code 2015 [facility] induced in (99799) platelet poor plasma lab report: cbc-complete blood cnt no di ff on 2016-01-30 Erythrocyte 44.7 35.1-43.9 fL High 01-30-2016 - [place] [facility] distribution 01-30-2016 Group (45965) width Auto Ratio (RBC) Erythrocyte 44.7 35.1-43.9 fL High 01-30-2016 - [place] distribution 01-30-2016 Medica l width [facility] (RBC) (30429) Erythrocytes 4.60 4.6-6.2 10*6/u Invalid 01-30-2016 - [facility] (RBC) L Interpretation 01-30-2016 Grou p ([id number]) Code MCH 29.8 27.0-32.0 pg Invalid 01-30-2016 - [facility] Interpretation 01-30-2016 Grou p ([id number]) Code MCHC 33.9 32-36 Invalid 01-30-2016 - [facility] G/GL Interpretation 01-30-2016 Grou p ([id number]) Code MCV 87.8 80-94 fL Invalid 01-30-2016 - [facility] Interpretation 01-30-2016 Grou p ([id number]) Code PMV by 9.8 6.2-12.0 fL Invalid 01-30-2016 - [facility]iz[facility]Annie Interpretation 01-30-2016 [facility] (94209) Code RDW SD 44.7 35.1-43.9 fL High 01-30-2016 - [facility] 01-30-2016 Group (44 871) RDW-CA 14.0 11.6-14.6 % Invalid 01-30-2016 - [facility] Interpretation 01-30-2016 Grou p ([id number]) Code red blood cell 44.7 35.1-43.9 fL High 01-30-2016 - [place] [facility] distribution 01-30-2016 Group (54319) width, size density WBC (Leukocytes) 5.5 4.4-11.0 10*9/L Invalid 01-30-2016 - [facility] Interpretation 01-30-2016 Grou p ([id number]) Code clinical lists update: preload on 2016-01-16 Left ventricular 35 % Invalid Interpretation 01-16-2016 - [facility] Ejection fraction Code 01-16-2016 G roup ([id number]) lab report: bedside glucose on 2014-12-15 Glucose 227 70-110 mg/dL High 12-15-2014 - [facility] 12-15-2014 ([id number]) Glucose mass conc 227 70-110 mg/dL High 12-15-2014 [facility] 12-15-2014 [employer] ([id number]) clinical lists update: preload on 2014-12-08 Cholesterol in 2.93 Invalid 12-08-2014 - [facility] LDL/Cholesterol in HDL Interpretation Co de 12-08-2014 [facility] [email or web address] (4408 1) Cholesterol to HDL 5.85 High 12-08-2014 - [facility] Ratio 12-08-2014 Group (44 691) HbA1c 7.1 % High 12-08-2014 - [facility] 12-08-2014 Group ([id number]) LDL/HDL ratio, serum 2.93 Invalid 5 - [facility] Interpretation Code 12-08-2014 Group ([id number]) office visit on 07-10-15 cardiac risk group C Invalid Interpretatio n 03-14-2014 - [facility] Code 03-14-2014 Group ([id number]) General cardiovascular N/A Invalid Interpret ation 03-14-2014 - [facility] disease 10Y risk [#] Code 4 Group ([id number]) [place] replaced document: midmark ecg observati ons on 2012-03-04 Pulse (Heart 430 ms Invalid Interpretation -0 - [facility] Rate) Code 03-04-2012 Group ([id number]) clinical lists update: preload on 2011-03-15 [facility] 34.7 % Invalid Interpretation 011 - [facility] Code 03-15-2011 ([id number]) [facility] mass conc 34.7 % 03-15-2011 - Bl [facility] (RBC) 03-15-2011 [employer] ([id number]) Vital Signs Vital Sign Description Value / Unit Date Location The following section is limited to 5 en tries per type and includes entries from the following time range: 20160619 - 5. BMI (Body Mass Index) 38.16 kg/m2 01-01-2017 - 01-01-2017 [facility] ([id number]) BMI (Body Mass Index) 37.35 kg/m2 09-04-2016 - 09-04-2016 [facility] ([id number]) BMI (Body Mass Index) 36.94 kg/m2 06-19-2016 - 06-19-2016 [facility] ([id number]) BP Diastolic 80 mm[Hg] 01-01-2017 - 01-01-2017 [facility] ([id number]) BP Diastolic 50 mm[Hg] 09-04-2016 - 09-04-2016 [facility] ([id number]) BP Diastolic 70 mm[Hg] 06-19-2016 - 06-19-2016 [facility] ([id number]) BP Diastolic 90 mm[Hg] 03-29-2015 - 03-29-2015 [facility] ([id number]) BP Diastolic 96 mm[Hg] 03-29-2015 - 03-29-2015 [facility] ([id number]) BP Systolic 134 mm[Hg] 01-01-2017 - 01-01-2017 [facility] ([id number]) BP Systolic 90 mm[Hg] 09-04-2016 - 09-04-2016 [facility] ([id number]) BP Systolic 110 mm[Hg] 06-19-2016 - 06-19-2016 [facility] ([id number]) BP Systolic 122 mm[Hg] 03-29-2015 - 03-29-2015 [facility] ([id number]) BP Systolic 120 mm[Hg] 03-29-2015 - 03-29-2015 [facility] ([id number]) BSA (Body Surface Area) 2.21 m2 03-14-2016 - 03-14-2016 [facility] ([id number]) Heart rate 81 /min 06-19-2016 - 06-19-2016 [employer] ([id number]) Heart rate 430 ms 03-04-2012 - 03-04-2012 [employer] ([id number]) Height 172.72 cm 01-01-2017 - 01-01-2017 [facility] ([id number]) Height 172.72 cm 09-04-2016 - 09-04-2016 [facility] ([id number]) Height 172.72 cm 06-19-2016 - 06-19-2016 [facility] ([id number]) Pulse (Heart Rate) 64 /min 01-01-2017 - 01-01-2017 [facility] ([id number]) Pulse (Heart Rate) 64 /min 09-04-2016 - 09-04-2016 [facility] ([id number]) Pulse (Heart Rate) 80 /min 06-19-2016 - 06-19-2016 [facility] ([id number]) Respiratory Rate 20 /min 01-01-2017 - 01-01-2017 [facility] ([id number]) Respiratory Rate 20 /min 09-04-2016 - 09-04-2016 [facility] ([id number]) Respiratory Rate 20 /min 06-19-2016 - 06-19-2016 [facility] ([id number]) Weight 113.85 kg 01-01-2017 - 01-01-2017 [facility] ([id number]) Weight 111.45 kg 09-04-2016 - 09-04-2016 [facility] ([id number]) Weight 110.22 kg 06-19-2016 - 06-19-2016 [facility] ([id number]) Encounters Date Type Reason Provider Location 02-17-2017 - Ambulatory [facility] ESTAFANOUS Facility:A 02-17-2017 12-13-2019 - Chart abstracting Morgan langley [facility] 12-13-2019 Comment: Outside Lab Results (CBC, BM P) 01-07-2020 - 01-07-2020 Patient encounter [facility] procedure [facility] Comment: Non-Urgent Medical Question 12-18-2019 - 12-18-2019 [...] 11-13-2019 - 11-13-2019 Patient encounter Morgan Jesica [facility] procedure [facility] Comment: RE: Non-Urgent [facility] ion 11-10-2019 - Patient encounter External [facility] 11-10-2019 procedure Provider 01-06-2020 - Refill Type 2 diabetes Morgan Mooney [facility] cine 01-06-2020 mellitus [facility] Comment: Refill Request 12-07-2019 - 12-07-2019 Refill Type 2 diabetes [facility] mellitus [facility] Comment: Refill Request 12-06-2019 Results Only [facility] 11-23-2019 Results Only Pharmacist [facility] 11-10-2019 - Results Only External Provider External-N [facility] 11-10-2019 12-27-2019 - Telephone encounter Morgan Mooney [facility] 12-27-2019 [facility] Comment: Patient Question 12-20-2019 - Telephone Paroxysmal atrial [facility] 12-20-2019 encounter fibrillation (Pharmacist) Telemanagement Comment: Anticoagulation Telephone Fu (Home INR result) 12-08-2019 - 12-08-2019 Telephone encounter Morgan Mooney [facility] Comment: [facility] OT POC 12-06-2019 - Telephone Paroxysmal atrial [facility] 12-06-2019 encounter fibrillation (Pharmacist) Telemanagement Comment: Anticoagulation Telephone Fu (Home INR result) 11-30-2019 - Telephone encounter Denita Thorpe (Pharmacis t) [facility] 11-30-2019 Comment: insulin did not arrive 11-23-2019 - Telephone encounter Denita Thorpe (Pharmacis t) [facility] 11-23-2019 Comment: Medication Update Procedures Procedure Name Date Provider Location BMP - EXTERNAL 12-09-2019 [facility] Provider [facility] ([id number]) CBCDIF (EXTERNAL) 12-09-2019 [facility] Provider [facility] ([id number]) INR Coag (PPP) [Relative 12-06-2019 Pharmacist Home Inr [facility] time] ([id number]) INR Coag (PPP) [Relative 11-23-2019 Pharmacist Home Inr [facility] time] ([id number]) EXTERNAL CARDIOLOGY 11-10-2019 External Provider [facility] ([id number]) EXTERNAL IMAGING 11-10-2019 External Provider [facility] ([id number]) Colonoscopy 01-06-2018 - [facility] 01-06-2018 ([id number]) Prgrmng dev eval 01-30-2017 - MD [facility] implantable in persn 1 ld 02-02-2017 ([id number] ) dfb Follow Up Appt 3 months 10-30-2016 - MD [facility] 12-17-2016 ([id number]) Pacer Clinic 10-30-2016 - MD [facility] 12-17-2016 ([id number]) Prgrmng dev eval 10-30-2016 - MD [facility] implantable in persn 1 ld 10-30-2016 ([id number] ) dfb Icd device prog eval, 1 10-30-2016 - MD [facility] sngl 10-30-2016 ([id number]) Follow Up Appt 3 months 09-04-2016 - MD [facility] 12-17-2016 ([id number]) MMM 09-04-2016 - MD [facility] 12-17-2016 ([id number]) Follow Up Appt 3 months 07-30-2016 - MD [facility] 11-17-2016 ([id number]) Pacer Clinic 07-30-2016 - MD [facility] 11-17-2016 ([id number]) Prgrmng dev eval 07-30-2016 - MD [facility] implantable in persn 1 ld 07-30-2016 ([id number] ) dfb Icd device prog eval, 1 07-30-2016 - MD [facility] sngl 11-17-2016 ([id number]) Pacer Clinic 07-30-2016 - MD Darlyn Rogers Nd dical 11-17-2016 [employer] ([id number]) *BMP 06-19-2016 - MD [facility] 06-19-2016 ([id number]) SATELLITE TECHNICIAN 06-19-2016 - MD [facility] 06-19-2016 ([id number]) Follow Up Appt 3 months 06-19-2016 - MD [facility] 11-17-2016 ([id number]) Magnesium [Mass/volume] in 06-19-2016 - MD [facility] Serum or Plasma 06-19-2016 ([id number]) Pacer Clinic 06-19-2016 - MD [facility] 11-17-2016 ([id number]) Prgrmng dev eval 06-19-2016 - MD [facility] implantable in persn 1 ld 06-23-2016 ([id number] ) dfb Referral to bed worker 06-19-2016 - MD [facility] 06-20-2016 ([id number]) *BMP 06-19-2016 - MD [facility] 06-19-2016 ([id number]) SATELLITE TECHNICIAN 06-19-2016 - MD [facility] 06-19-2016 ([id number]) Follow Up Appt 3 months 06-19-2016 - MD [facility] 11-17-2016 ([id number]) Icd device prog eval, 1 06-19-2016 - MD [facility] sngl 06-23-2016 ([id number]) Magnesium 06-19-2016 - MD [facility] 06-19-2016 ([id number]) Pacer Clinic 06-19-2016 - MD Darlyn Rogers Nd dical 11-17-2016 [employer] ([id number]) Referral to bed worker 06-19-2016 - Johan Perry MD [facility] 06-20-2016 [employer] ([id number]) *Hepatic Function Panel 05-21-2016 - MD [facility] 05-21-2016 ([id number]) Lipid 1996 panel - Serum or 05-21-2016 - MD [facility] Plasma 05-21-2016 ([id number]) *Hepatic Function Panel 05-21-2016 - MD [facility] 05-21-2016 ([id number]) Lipid panel [AGGREGATE] 05-21-2016 - MD [facility] 05-21-2016 ([id number]) Follow Up Appt 3 months 04-30-2016 - MD [facility] 11-17-2016 ([id number]) Pacer Clinic 04-30-2016 - MD [facility] 11-17-2016 ([id number]) Prgrmng dev eval 04-30-2016 - MD [facility] implantable in persn 1 ld 11-17-2016 ([id number] ) dfb Icd device prog eval, 1 04-30-2016 - MD [facility] sngl 11-17-2016 ([id number]) Pacer Clinic 04-30-2016 - MD Darlyn Rogers Me dical 11-17-2016 [employer] ([id number]) Carotid duplex 03-14-2016 - MD [facility] 04-01-2016 ([id number]) Follow Up Appt 3 months 03-14-2016 - MD [facility] 03-14-2016 ([id number]) INR in Platelet poor plasma 03-14-2016 - MD [facility] by Coagulation assay 03-14-2016 ([id number]) MMM 03-14-2016 - MD [facility] 03-14-2016 ([id number]) Dietary management 03-14-2016 - Darlyn galaviz education, guidance, and 03-14-2016 [facility] ([id number]) counseling Carotid duplex 03-14-2016 - MD [facility] 04-01-2016 ([id number]) Coagulation factor 03-14-2016 - MD [facility] induced.INR assay in 03-14-2016 ([id number]) platelet poor plasma Follow Up Appt 3 months 03-14-2016 - MD [facility] 03-14-2016 ([id number]) MMM 03-14-2016 - MD [facility] 03-14-2016 ([id number]) *BMP 01-30-2016 - MD [facility] 01-30-2016 ([id number]) CBC W Auto Differential 01-30-2016 - MD [facility] panel - Blood 01-30-2016 ([id number]) Chest x-ray 01-30-2016 - MD [facility] 02-08-2016 ([id number]) Ecg routine ecg w/least 12 01-30-2016 - MD [facility] lds w/i&r 01-30-2016 ([id number]) Follow Up Appt 6 weeks 01-30-2016 - MD [facility] 01-30-2016 ([id number]) INR in Platelet poor plasma 01-30-2016 - MD [facility] by Coagulation assay 01-30-2016 ([id number]) Left Heart Cath 01-30-2016 - MD [facility] 05-21-2016 ([id number]) MMM 01-30-2016 - MD [facility] 01-30-2016 ([id number]) Us abdominal real time 01-30-2016 - MD [facility] w/image limited 02-08-2016 ([id number]) *BMP 01-30-2016 - MD [facility] 01-30-2016 ([id number]) CBC W Auto Differential 01-30-2016 - MD [facility] panel - Blood 01-30-2016 ([id number]) Chest x-ray 01-30-2016 - MD [facility] 02-08-2016 ([id number]) Coagulation factor 01-30-2016 - MD [facility] induced.INR assay in 01-30-2016 ([id number]) platelet poor plasma Echo exam of abdomen 01-30-2016 - MD [facility] 02-08-2016 ([id number]) Electrocardiogram, complete 01-30-2016 - MD [facility] 01-30-2016 ([id number]) Follow Up Appt 6 weeks 01-30-2016 - MD [facility] 01-30-2016 ([id number]) Left Heart Cath 01-30-2016 - MD [facility] 05-21-2016 ([id number]) MMM 01-30-2016 - MD [facility] 01-30-2016 ([id number]) Follow Up Appt 3 months 01-23-2016 - [facility] 11-17-2016 PA-C ([id number]) Pacer Clinic 01-23-2016 - [facility] 11-17-2016 PA-C ([id number]) Prgrmng dev eval 01-23-2016 - [facility] implantable in persn 1 ld 01-23-2016 PA-C ([id number] ) dfb Chest x-ray 01-23-2016 - Melany Khanna [facility] 11-17-2016 PA-C Service, [employer] ([id number]) Ecg routine ecg w/least 12 01-23-2016 - Melany Khanna [facility] w/i&r 11-17-2016 PA-C Service, [employer] ([id number]) Icd device prog eval, 1 01-23-2016 - Pauline Timmons [facility] sngl 01-23-2016 PA-C ([id number]) *Hepatic Function Panel 11-05-2015 - MD [facility] 11-20-2015 ([id number]) Lipid 1996 panel - Serum or 11-05-2015 - Johan Perry MD [facility] Plasma 11-20-2015 ([id number]) *Hepatic Function Panel 11-05-2015 - MD [facility] 11-20-2015 ([id number]) Lipid panel [AGGREGATE] 11-05-2015 - MD [facility] 11-20-2015 ([id number]) Follow Up Appt 3 months 10-18-2015 - [facility] 02-08-2016 ([id number]) Pacer Clinic 10-18-2015 - [facility] 02-08-2016 ([id number]) Prgrmng dev eval 10-18-2015 - [facility] implantable in persn 1 ld 10-18-2015 ([id number] ) dfb Follow Up Appt 3 months 10-18-2015 - [facility] 02-08-2016 ([id number]) Icd device prog eval, 1 10-18-2015 - [facility] sngl 10-18-2015 ([id number]) Pacer Clinic 10-18-2015 - [facility] 02-08-2016 ([id number]) Follow Up Appt 3 months 07-18-2015 - MD [facility] 02-08-2016 ([id number]) Pacer Clinic 07-18-2015 - MD [facility] 02-08-2016 ([id number]) Prgrmng dev eval 07-18-2015 - MD [facility] implantable in persn 1 ld 07-18-2015 ([id number] ) dfb Follow Up Appt 3 months 07-18-2015 - MD [facility] 02-08-2016 ([id number]) Icd device prog eval, 1 07-18-2015 - MD [facility] sngl 02-08-2016 ([id number]) Pacer Clinic 07-18-2015 - MD [facility] 02-08-2016 ([id number]) SATELLITE TECHNICIAN 07-03-2015 - MD [facility] 07-03-2015 ([id number]) Follow Up Appt 6 months 07-03-2015 - MD [facility] 07-03-2015 ([id number]) SATELLITE TECHNICIAN 07-03-2015 - Johan Perry MD [facility] 07-03-2015 ([id number]) Follow Up Appt 6 months 07-03-2015 - MD [facility] 07-03-2015 ([id number]) *Hepatic Function Panel 06-20-2015 - Melany Khanna [facility] 06-20-2015 PA-C ([id number]) Lipid 1996 panel - Serum or 06-20-2015 - Melany Khanna [facility] Plasma 06-20-2015 PA-C ([id number]) *Hepatic Function Panel 06-20-2015 - Melany Khanna [facility] 06-20-2015 PA-C ([id number]) Lipid panel [AGGREGATE] 06-20-2015 - Melany Khanna [facility] 06-20-2015 PA-C ([id number]) Follow Up Appt 3 months 04-13-2015 - MD [facility] 02-08-2016 ([id number]) Pacer Clinic 04-13-2015 - Johan Perry MD [facility] 02-08-2016 ([id number]) Prgrmng dev eval 04-13-2015 - MD [facility] implantable in persn 1 ld 04-14-2015 ([id number] ) dfb Follow Up Appt 3 months 04-13-2015 - MD [facility] 02-08-2016 ([id number]) Icd device prog eval, 1 04-13-2015 - MD [facility] sngl 04-14-2015 ([id number]) Pacer Clinic 04-13-2015 - MD [facility] 02-08-2016 ([id number]) Us abdominal real time 04-11-2015 - MD [facility] w/image limited 04-12-2015 ([id number]) Echo exam of abdomen 04-11-2015 - MD [facility] 04-12-2015 ([id number]) External Counterpulsation 04-06-2015 - [facility] Therapy 11-17-2016 PA-C ([id number]) Prgrmng dev eval 04-06-2015 - Juan Timmons on [facility] implantable in persn 1 ld 11-17-2016 PA-C [employer] [employer] [facility] ([id number]) dfb SATELLITE TECHNICIAN 03-29-2015 - [facility] 03-29-2015 PA-C ([id number]) Follow Up Appt 3 months 03-29-2015 - Melany Khanna [facility] 03-29-2015 PA-C ([id number]) SATELLITE TECHNICIAN 03-29-2015 - Melany Khanna [facility] 03-29-2015 PA-C ([id number]) Follow Up Appt 3 months 03-29-2015 - Melany Khanna [facility] 03-29-2015 PA-C ([id number]) Follow Up Appt 3 months 01-05-2015 - Melany Khanna [facility] 03-05-2015 PA-C ([id number]) Pacer Clinic 01-05-2015 - [facility] 03-05-2015 PA-C ([id number]) Prgrmng dev eval 01-05-2015 - [facility] implantable in persn 1 ld 01-08-2015 PA-C ([id number] ) dfb Follow Up Appt 3 months 01-05-2015 - Melany Khanna [facility] 03-05-2015 PA-C ([id number]) Icd device prog eval, 1 01-05-2015 - Melany Khanna, [facility] 01-08-2015 PA-C ([id number]) Pacer Clinic 01-05-2015 - Melany Khanna, [facility] 03-05-2015 PA-C ([id number]) Cardiac Rehab 12-27-2014 - MD [facility] 03-05-2015 ([id number]) Documentation of current 12-27-2014 - MD [facility] medications 12-28-2014 ([id number]) Follow Up Appt 3 months 12-27-2014 - MD [facility] 12-27-2014 ([id number]) MMM 12-27-2014 - MD [facility] 12-27-2014 ([id number]) Pedal pulse taking 12-27-2014 - MD [facility] 12-28-2014 ([id number]) Cardiac Rehab 12-27-2014 - MD [facility] 03-05-2015 ([id number]) Documentation of current 12-27-2014 - Johan Perry MD [facility] medications 12-28-2014 ([id number]) Follow Up Appt 3 months 12-27-2014 - MD [facility] 12-27-2014 ([id number]) MMM 12-27-2014 - Johan Perry MD [facility] 12-27-2014 ([id number]) Pedal pulse taking 12-27-2014 - MD [facility] 12-28-2014 ([id number]) Follow Up BP Check 12-11-2014 - Melany Khanna [facility] 12-11-2014 PA-C ([id number]) Left Heart Cath 12-11-2014 - MD [facility] 03-05-2015 ([id number]) Follow Up BP Check 12-11-2014 - Melany Khanna [facility] 12-11-2014 PA-C ([id number]) Left Heart Cath 12-11-2014 - MD [facility] 03-05-2015 ([id number]) *BMP 12-06-2014 - [facility] 12-06-2014 PA-C ([id number]) Documentation of current 12-06-2014 - Melany Khanna [facility] medications 12-07-2014 PA-C ([id number]) Follow Up Appt Other 12-06-2014 - Melany Khanna [facility] 12-06-2014 PA-C ([id number]) *BMP 12-06-2014 - [facility] 12-06-2014 PA-C ([id number]) Documentation of current 12-06-2014 - Alejandro [facility] medications 12-07-2014 PA-C ([id number]) Follow Up Appt Other 12-06-2014 - Melany Khanna [facility] 12-06-2014 PA-C ([id number]) Lipid 1996 panel - Serum or 11-28-2014 - Melany Khanna [facility] Plasma 12-21-2014 PA-C ([id number]) Lipid panel [AGGREGATE] 11-28-2014 - Melany Khanna [facility] 12-21-2014 PA-C ([id number]) Documentation of current 11-03-2014 - Johan Perry MD [facility] medications 11-04-2014 ([id number]) Follow Up Appt 6 months 11-03-2014 - MD [facility] 11-03-2014 ([id number]) MMM 11-03-2014 - MD [facility] 11-03-2014 ([id number]) Pedal pulse taking 11-03-2014 - MD [facility] 11-04-2014 ([id number]) Preoperative cardiovascular 11-03-2014 - [facility] examination 12-25-2014 ([id number]) Documentation of current 11-03-2014 - Johan Perry MD [facility] medications 11-04-2014 ([id number]) Follow Up Appt 6 months 11-03-2014 - MD [facility] 11-03-2014 ([id number]) MMM 11-03-2014 - MD [facility] 11-03-2014 ([id number]) Pedal pulse taking 11-03-2014 - MD [facility] 11-04-2014 ([id number]) Preoperative cardiovascular 11-03-2014 - [place] examination 12-25-2014 [employer] ([id number]) [facility] 09-27-2014 - [facility] 09-27-2014 PA-C ([id number]) Documentation of current 09-27-2014 - Alejandro Timmons [facility] medications 09-28-2014 PA-C ([id number]) Ecg routine ecg w/least 12 09-27-2014 - [facility] lds w/i&r 11-03-2014 PA-C Johan Perry MD ([id number]) Follow Up Appt 3 months 09-27-2014 - MD [facility] 11-03-2014 ([id number]) Follow Up Appt 6 months 09-27-2014 - Pauline Timmons [facility] 09-27-2014 PA-C ([id number]) Pacer Clinic 09-27-2014 - MD [facility] 11-03-2014 ([id number]) Pedal pulse taking 09-27-2014 - Melany Khanna [facility] 09-28-2014 PA-C ([id number]) Prgrmng dev eval 09-27-2014 - Johan Perry MD [facility] implantable in persn 1 ld 09-28-2014 ([id number] ) dfb SATELLITE TECHNICIAN 09-27-2014 - [facility] 09-27-2014 PA-C ([id number]) Documentation of current 09-27-2014 - Ale[facility] medications 09-28-2014 PA-C ([id number]) Follow Up Appt 3 months 09-27-2014 - Johan Perry MD [facility] 11-03-2014 ([id number]) Follow Up Appt 6 months 09-27-2014 - Melany Khanna [facility] 09-27-2014 PA-C ([id number]) Icd device prog eval, 1 09-27-2014 - Johan Perry MD [facility] sngl 09-28-2014 ([id number]) Pacer Clinic 09-27-2014 - Johan Perry MD [facility] 11-03-2014 ([id number]) Pedal pulse taking 09-27-2014 - Melany Khanna [facility] 09-28-2014 PA-C ([id number]) Pulse (Heart Rate) 09-27-2014 - Melany Khanna [facility] 11-03-2014 PA-C Johan Perry MD ([id number]) *Hepatic Function Panel 07-28-2014 - Johan Perry MD [facility] 08-25-2014 ([id number]) Lipid 1996 panel - Serum or 07-28-2014 - Johan Perry MD [facility] Plasma 08-25-2014 ([id number]) *Hepatic Function Panel 07-28-2014 - Johan Perry MD [facility] 08-25-2014 ([id number]) Lipid panel [AGGREGATE] 07-28-2014 - Johan Perry MD [facility] 08-25-2014 ([id number]) Follow Up Appt 3 months 06-12-2014 - Melany Khanna [facility] 09-15-2014 PA-C ([id number]) Pacer Clinic 06-12-2014 - [facility] 09-15-2014 PA-C ([id number]) Prgrmng dev eval 06-12-2014 - [facility] implantable in persn 1 ld 06-13-2014 PA-C ([id number] ) dfb Follow Up Appt 3 months 06-12-2014 - Melany Khanna [facility] 09-15-2014 PA-C ([id number]) Icd device prog eval, 1 06-12-2014 - Melany Khanna [facility] 06-13-2014 PA-C ([id number]) Pacer Clinic 06-12-2014 - [facility] 09-15-2014 PA-C ([id number]) Follow Up Appt 3 months 03-14-2014 - Johan Perry MD [facility] 09-15-2014 ([id number]) Follow Up Appt 6 months 03-14-2014 - MD [facility] 03-14-2014 ([id number]) [facility] 03-14-2014 - Johan Perry MD [facility] 03-14-2014 ([id number]) Pacer Clinic 03-14-2014 - MD [facility] 09-15-2014 ([id number]) Prgrmng dev eval 03-14-2014 - Johan Perry MD [facility] implantable in persn 1 ld 03-14-2014 ([id number] ) dfb Follow Up Appt 3 months 03-14-2014 - Johan Perry MD [facility] 09-15-2014 ([id number]) Follow Up Appt 6 months 03-14-2014 - MD [facility] 03-14-2014 ([id number]) Icd device prog eval, 1 03-14-2014 - Johan Perry MD [facility] sn 03-14-2014 ([id number]) [facility] 03-14-2014 - Johan Perry MD [facility] 03-14-2014 ([id number]) Pacer Clinic 03-14-2014 - Johan Perry MD [facility] 09-15-2014 ([id number]) *Hepatic Function Panel 01-28-2014 - MD [facility] 02-06-2014 ([id number]) Lipid 1996 panel - Serum or 01-28-2014 - Johan Perry MD [facility] Plasma 02-06-2014 ([id number]) *Hepatic Function Panel 01-28-2014 - MD [facility] 02-06-2014 ([id number]) Lipid panel [AGGREGATE] 01-28-2014 - MD [facility] 02-06-2014 ([id number]) Follow Up Appt 2 months 12-16-2013 - MD [facility] 09-15-2014 ([id number]) Pacer Clinic 12-16-2013 - Johan Perry MD [facility] 09-15-2014 ([id number]) Prgrmng dev eval 12-16-2013 - MD [facility] implantable in persn 1 ld 09-15-2014 ([id number] ) dfb Follow Up Appt 2 months 12-16-2013 - MD [facility] 09-15-2014 ([id number]) Icd device prog eval, 1 12-16-2013 - MD [facility] sngl 09-15-2014 ([id number]) Pacer Clinic 12-16-2013 - Johan Perry MD [facility] 09-15-2014 ([id number]) Follow Up Appt 3 months 09-15-2013 - MD [facility] 09-15-2014 ([id number]) Pacer Clinic 09-15-2013 - Johan Perry MD [facility] 09-15-2014 ([id number]) Prgrmg eval implantable in 09-15-2013 - MD [facility] prsn dual lead dfb 09-15-2013 ([id number]) Follow Up Appt 3 months 09-15-2013 - MD [facility] 09-15-2014 ([id number]) Icd device progr eval, dual 09-15-2013 - Johan Perry MD [facility] 09-15-2013 ([id number]) Pacer Clinic 09-15-2013 - MD [facility] 09-15-2014 ([id number]) SATELLITE TECHNICIAN 09-06-2013 - Melany Khanna [facility] 09-06-2013 PA-C ([id number]) Follow Up Appt 6 months 09-06-2013 - Melany Khanna [facility] 09-06-2013 PA-C ([id number]) SATELLITE TECHNICIAN 09-06-2013 - [facility]any [facility]anna[facility] 09-06-2013 PA-C ([id number]) Follow Up Appt 6 months 09-06-2013 - Melany Khanna [facility] 09-06-2013 PA-C ([id number]) *Hepatic Function Panel 07-28-2013 - MD [facility] 08-09-2013 ([id number]) Lipid 1996 panel - Serum or 07-28-2013 - Johan Perry MD [facility] Plasma 08-09-2013 ([id number]) *Hepatic Function Panel 07-28-2013 - MD [facility] 08-09-2013 ([id number]) Lipid panel [AGGREGATE] 07-28-2013 - MD [facility] 08-09-2013 ([id number]) Follow Up Appt 3 months 06-08-2013 - MD [facility] 08-25-2013 ([id number]) Pacer Clinic 06-08-2013 - MD [facility] 08-25-2013 ([id number]) Prgrmng dev eval 06-08-2013 - MD [facility] implantable in persn 1 ld 06-08-2013 ([id number] ) dfb Follow Up Appt 3 months 06-08-2013 - MD [facility] 08-25-2013 ([id number]) Icd device prog eval, 1 06-08-2013 - MD [facility] sngl 06-08-2013 ([id number]) Pacer Clinic 06-08-2013 - MD [facility] 08-25-2013 ([id number]) Follow Up Appt 3 months 03-09-2013 - MD [facility] 05-17-2013 ([id number]) Pacer Clinic 03-09-2013 - MD [facility] 05-17-2013 ([id number]) Prgrmng dev eval 03-09-2013 - MD [facility] implantable in persn 1 ld 03-09-2013 ([id number] ) dfb Follow Up Appt 3 months 03-09-2013 - MD [facility] 05-17-2013 ([id number]) Pacer Clinic 03-09-2013 - MD [facility] 05-17-2013 ([id number]) Ecg routine ecg w/least 12 03-08-2013 - MD [facility] lds w/i&r 05-17-2013 ([id number]) Follow Up Appt 6 months 03-08-2013 - MD [facility] 05-17-2013 ([id number]) Icd device prog eval, 1 03-08-2013 - MD [facility] sngl 05-17-2013 ([id number]) MMM 03-08-2013 - MD [facility] 05-17-2013 ([id number]) Electrocardiogram, complete 03-08-2013 - MD [facility] 05-17-2013 ([id number]) Follow Up Appt 6 months 03-08-2013 - MD [facility] 05-17-2013 ([id number]) MMM 03-08-2013 - MD [facility] 05-17-2013 ([id number]) *Hepatic Function Panel 01-28-2013 - MD [facility] 02-04-2013 ([id number]) Lipid 1996 panel - Serum or 01-28-2013 - MD [facility] Plasma 02-04-2013 ([id number]) *Hepatic Function Panel 01-28-2013 - MD [facility] 02-04-2013 ([id number]) Lipid panel [AGGREGATE] 01-28-2013 - MD [facility] 02-04-2013 ([id number]) Follow Up Appt 3 months 12-08-2012 - MD [facility] 05-17-2013 ([id number]) Pacer Clinic 12-08-2012 - MD [facility] 05-17-2013 ([id number]) Prgrmng dev eval 12-08-2012 - MD [facility] implantable in persn 1 ld 12-08-2012 ([id number] ) dfb Follow Up Appt 3 months 12-08-2012 - MD [facility] 05-17-2013 ([id number]) Icd device prog eval, 1 12-08-2012 - MD [facility] sngl 12-08-2012 ([id number]) Pacer Clinic 12-08-2012 - MD [facility] 05-17-2013 ([id number]) Follow Up Appt 6 months 11-25-2012 - MD [facility] 11-25-2012 ([id number]) [facility] 11-25-2012 - Johan Perry MD [facility] 11-25-2012 ([id number]) Follow Up Appt 6 months 11-25-2012 - MD [facility] 11-25-2012 ([id number]) [facility] 11-25-2012 - Johan Perry MD [facility] 11-25-2012 ([id number]) Follow Up Appt 3 months 09-03-2012 - MD [facility] 05-17-2013 ([id number]) Pacer Clinic 09-03-2012 - MD [facility] 05-17-2013 ([id number]) Prgrmng dev eval 09-03-2012 - MD [facility] implantable in persn 1 ld 09-03-2012 ([id number] ) dfb Follow Up Appt 3 months 09-03-2012 - MD [facility] 05-17-2013 ([id number]) Icd device prog eval, 1 09-03-2012 - Johan Perry MD [facility] sngl 09-03-2012 ([id number]) Pacer Clinic 09-03-2012 - Johan Perry MD [facility] 05-17-2013 ([id number]) *BMP 09-01-2012 - [facility]ul [facility] 05-17-2013 Héctor SIMMONS ([id number]) *Hepatic Function Panel 09-01-2012 - [facility] 05-17-2013 Héctor SIMMONS ([id number]) Lipid 1996 panel - Serum or 09-01-2012 - Rahul [facility] Plasma 05-17-2013 Héctor SIMMONS ([id number]) Magnesium [Mass/volume] in 09-01-2012 - Rahul [facility] Serum or Plasma 05-17-2013 Héctor SIMMONS ([id number]) *BMP 09-01-2012 - [facility] 05-17-2013 Héctor SIMMONS ([id number]) *Hepatic Function Panel 09-01-2012 - Rahul [facility] 05-17-2013 Héctor SIMMONS ([id number]) Lipid panel [AGGREGATE] 09-01-2012 - [facility] 05-17-2013 Héctor SIMMONS ([id number]) Magnesium 09-01-2012 - [facility] 05-17-2013 Hétcor SIMMONS ([id number]) Follow Up Appt 6 months 03-04-2012 - [facility] 03-04-2012 Héctor SIMMONS ([id number]) Follow Up Appt 6 months 03-04-2012 - Rahul [facility] 03-04-2012 Héctor SIMMONS ([id number]) *Hepatic Function Panel 02-04-2012 - Rahul [facility] 02-11-2012 Héctor SIMMONS ([id number]) Lipid 1996 panel - Serum or 02-04-2012 - Rahul [facility] Plasma 02-11-2012 Héctor SIMMONS ([id number]) *Hepatic Function Panel 02-04-2012 - Rahul W [facility] 02-11-2012 Héctor SIMMONS ([id number]) Lipid panel [AGGREGATE] 02-04-2012 - [facility] 02-11-2012 Héctor SIMMONS ([id number]) Follow Up Appt 4 months 11-24-2011 - Rahul [facility] 11-24-2011 Héctor SIMMONS ([id number]) Follow Up Appt 4 months 11-24-2011 - Rahul [facility] 11-24-2011 Héctor SIMMONS ([id number]) *Hepatic Function Panel 10-27-2011 - Rahul [facility] 10-27-2011 Héctor SIMMONS ([id number]) Lipid 1996 panel - Serum or 10-27-2011 - Rahul [facility] Plasma 10-27-2011 Héctor SIMMONS ([id number]) *Hepatic Function Panel 10-27-2011 - Rahul [facility] 10-27-2011 Héctor SIMMONS ([id number]) Lipid panel [AGGREGATE] 10-27-2011 - Rahul W [facility] 10-27-2011 Héctor SIMMONS ([id number]) *BMP 10-16-2011 - [facility] 10-27-2011 Héctor SIMMONS ([id number]) *BMP 10-16-2011 - [facility] 10-27-2011 Héctor SIMMONS ([id number]) Ecg routine ecg w/least 08-26-2011 - Rahul [facility] lds w/i&r 08-26-2011 Héctor SIMMONS ([id number]) Follow Up Appt 3 months 08-26-2011 - Rahul [facility] 08-26-2011 Héctor SIMMONS ([id number]) Electrocardiogram, complete 08-26-2011 - Rahul [facility] 08-26-2011 Héctor SIMMONS ([id number]) Follow Up Appt 3 months 08-26-2011 - [facility]ul [facility] 08-26-2011 Héctor SIMMONS ([id number]) Ecg routine ecg w/least 12 06-27-2011 - [facility] lds w/i&r 06-27-2011 Héctor SIMMONS ([id number]) Follow Up Appt 2 months 06-27-2011 - Rahul [facility] 06-27-2011 Héctor SIMMONS ([id number]) Follow Up Appt 2 months 06-27-2011 - Rahul [facility] 06-27-2011 Héctor SIMMONS ([id number]) Lipid panel [AGGREGATE] 06-27-2011 - Rahul [facility] 06-27-2011 Héctor SIMMONS ([id number]) Follow Up Appt 4 months 06-10-2011 - Rahul Allen [facility] 06-10-2011 Héctor SIMMONS ([id number]) Follow Up Appt 4 months 06-10-2011 - Rahul Allen [facility] 06-10-2011 Héctor SIMMONS ([id number]) Implantation of automatic 07-16-2010 [facility] cardiac defibrillator ([id number]) Placement of stent in 07-16-2010 [facility] coronary artery ([id number]) Implantation of automatic 07-16-2010 [facility] cardiac defibrillator Service, [facility] ([id number]) Plan of Treatment Plan Description Date Location COLONOSCOPY COLONOSCOPY 01-07-2028 - [facility] 01-07-2028 ([id number]) COLORECTAL CANCER COLORECTAL CANCER 01-07-2028 - [facility] SCREENING,SEE MODIFIER SCREENING,SEE MODIFIER 01-07-2028 ([id number]) DTAP,TDAP,TD (3 - Td) DTAP,TDAP,TD (3 - Td) 10-17-2027 - [facility] 10-17-2027 ([id number]) ADVANCE DIRECTIVE ADVANCE DIRECTIVE 10-26-2024 - [facility] DISCUSSION DISCUSSION 10-26-2024 ([id number]) HEMOGLOBIN/HEMATOCRIT HEMOGLOBIN/HEMATOCRIT 12-08-2020 - [facility] 12-08-2020 ([id number]) DIABETIC FOOT EXAM DIABETIC FOOT EXAM 11-26-2020 - [facility] 11-26-2020 ([id number]) Comment: Postponed from 07/16/2019 (C urrent Illness) ANNUAL PCP TEAM ANNUAL PCP TEAM 10-26-2020 - [facility] CHRONIC DISEASE VISIT CHRONIC DISEASE VISIT 10-26-2020 ([id number]) BP CONTROLLED BP CONTROLLED 10-26-2020 - [facility] (<130/80) (<130/80) 10-26-2020 ([id number]) SHINGRIX VACCINE (1 of SHINGRIX VACCINE (1 of 10-26-2020 - [facility] 2) 2) 10-26-2020 ([id number]) Comment: Postponed from 10/20/1995 (D eclined at this time) URINE ALBUMIN:CREATININE URINE ALBUMIN:CREATININE 10-13-2020 - [facility] RATIO RATIO 10-13-2020 ([id number]) LDL CHOLESTEROL LDL CHOLESTEROL 10-13-2020 - [facility] 10-13-2020 ([id number]) SERUM CREATININE SERUM CREATININE 10-13-2020 - [facility] 10-13-2020 ([id number]) DILATED RETINAL EXAM DILATED RETINAL EXAM 08-10-2020 - [facility] 08-10-2020 ([id number]) HBA1C HBA1C 04-15-2020 - [facility] 04-15-2020 ([id number]) HEMOGLOBIN/HEMATOCRIT HEMOGLOBIN/HEMATOCRIT 01-15-2020 - [facility] 01-15-2020 ([id number]) INFLUENZA (#1) INFLUENZA (#1) 2019 - [facility] 11-29-2019 ([id number]) Appointment Appointment 07-07-2017 - [facility] 07-07-2017 Group ([id number]) Appointment Appointment 05-04-2017 - [facility] 05-04-2017 Group ([id number]) Follow Up Appt 3 months Follow Up Appt 3 months 01-30-2017 - [facility] 02-02-2017 Group ([id number]) Pacer Clinic Pacer Clinic 01-30-2017 - [facility] 02-02-2017 Group ([id number]) Appointment Appointment 01-30-2017 - [facility] 01-30-2017 Group ([id number]) Appointment Appointment 01-01-2017 - [facility] 01-01-2017 Group ([id number]) SATELLITE TECHNICIAN SATELLITE TECHNICIAN 01-01-2017 - [facility] 01-01-2017 Group ([id number]) Follow Up Appt 6 months Follow Up Appt 6 months 01-01-2017 - [facility] 01-01-2017 Group ([id number]) Appointment Appointment 12-24-2016 - [facility] 12-24-2016 Group ([id number]) *Hepatic Function Panel *Hepatic Function Panel 11-18-2016 - [facility] 05-22-2016 Group ([id number]) *Lipid Profile CC PCP *Lipid Profile CC PCP 11-18-2016 - [facility] 05-22-2016 Group ([id number]) Follow Up Appt 3 months Follow Up Appt 3 months 10-30-2016 - [facility] 12-17-2016 Group ([id number]) Pacer Clinic Pacer Clinic 10-30-2016 - [facility] 12-17-2016 Group ([id number]) Appointment Appointment 10-30-2016 - [facility] 10-30-2016 Group ([id number]) Appointment Appointment 10-30-2016 - [facility] 10-30-2016 Group ([id number]) Follow Up Appt 3 months Follow Up Appt 3 months 10-30-2016 - [facility] 10-30-2016 Group ([id number]) Pacer Clinic Pacer Clinic 10-30-2016 - [facility] 10-30-2016 Group ([id number]) Appointment Appointment 09-18-2016 - [facility] 09-18-2016 Group ([id number]) Appointment Appointment 09-04-2016 - [facility] 09-04-2016 Group ([id number]) Appointment Appointment 09-04-2016 - [facility] 09-04-2016 Group ([id number]) Follow Up Appt 3 months Follow Up Appt 3 months 09-04-2016 - [facility] 12-17-2016 Group ([id number]) MMM MMM 09-04-2016 - [facility] 12-17-2016 Group ([id number]) Follow Up Appt 3 months Follow Up Appt 3 months 09-04-2016 - [facility] 09-04-2016 Group ([id number]) MMM MMM 09-04-2016 - [facility] 09-04-2016 Group ([id number]) Follow Up Appt 3 months Follow Up Appt 3 months 07-30-2016 - [facility] 11-17-2016 Group ([id number]) Pacer Clinic Pacer Clinic 07-30-2016 - [facility] 11-17-2016 Group ([id number]) Appointment Appointment 07-30-2016 - [facility] 07-30-2016 Group ([id number]) Follow Up Appt 3 months Follow Up Appt 3 months 07-30-2016 - [facility] 11-17-2016 Group ([id number]) Pacer Clinic Pacer Clinic 07-30-2016 - [facility] 11-17-2016 Group ([id number]) *BMP *BMP 06-19-2016 - [facility] 06-19-2016 Group ([id number]) Cardiac Rehab Cardiac Rehab 06-19-2016 - [facility] 11-17-2016 Group ([id number]) SATELLITE TECHNICIAN SATELLITE TECHNICIAN 06-19-2016 - [facility] 06-19-2016 Group ([id number]) Follow Up Appt 3 months Follow Up Appt 3 months 06-19-2016 - [facility] 11-17-2016 Group ([id number]) *Magnesium *Magnesium 06-19-2016 - [facility] 06-19-2016 Group ([id number]) Pacer Clinic Pacer Clinic 06-19-2016 - [facility] 11-17-2016 Group ([id number]) *BMP *BMP 06-19-2016 - [facility] 06-19-2016 Group ([id number]) Cardiac Rehab Cardiac Rehab 06-19-2016 - [facility] 11-17-2016 Group ([id number]) SATELLITE TECHNICIAN SATELLITE TECHNICIAN 06-19-2016 - [facility] 06-19-2016 Group ([id number]) Follow Up Appt 3 months Follow Up Appt 3 months 06-19-2016 - [facility] 11-17-2016 Group ([id number]) *Magnesium *Magnesium 06-19-2016 - [facility] 06-19-2016 Group ([id number]) Pacer Clinic Pacer Clinic 06-19-2016 - [facility] 11-17-2016 Group ([id number]) *Hepatic Function Panel *Hepatic Function Panel 05-21-2016 - [facility] 05-21-2016 Group ([id number]) *Lipid Profile CC PCP *Lipid Profile CC PCP 05-21-2016 - [facility] 05-21-2016 Group ([id number]) *Hepatic Function Panel *Hepatic Function Panel 05-21-2016 - [facility] 05-21-2016 Group ([id number]) *Lipid Profile CC PCP *Lipid Profile CC PCP 05-21-2016 - [facility] 05-21-2016 Group ([id number]) Follow Up Appt 3 months Follow Up Appt 3 months 04-30-2016 - [facility] 11-17-2016 Group ([id number]) Pacer Clinic Pacer Clinic 04-30-2016 - [facility] 11-17-2016 Group ([id number]) Follow Up Appt 3 months Follow Up Appt 3 months 04-30-2016 - [facility] 11-17-2016 Group ([id number]) Pacer Clinic Pacer Clinic 04-30-2016 - [facility] 11-17-2016 Group ([id number]) Carotid duplex Carotid duplex 03-14-2016 - [facility] 03-14-2016 Group ([id number]) Follow Up Appt 3 months Follow Up Appt 3 months 03-14-2016 - [facility] 03-14-2016 Group ([id number]) *PT/INR *PT/INR 03-14-2016 - [facility] 03-14-2016 Group ([id number]) MMM MMM 03-14-2016 - [facility] 03-14-2016 Group ([id number]) Carotid duplex Carotid duplex 03-14-2016 - [facility] 03-14-2016 Group ([id number]) *PT/INR *PT/INR 03-14-2016 - [facility] 03-14-2016 Group ([id number]) Follow Up Appt 3 months Follow Up Appt 3 months 03-14-2016 - [facility] 03-14-2016 Group ([id number]) MMM MMM 03-14-2016 - [facility] 03-14-2016 Group ([id number]) *BMP *BMP 01-30-2016 - [facility] 01-30-2016 Group ([id number]) *CBC without Diff *CBC without Diff 01-30-2016 - [facility] 01-30-2016 [facility] ([id number]) X-Ray, Chest, PA & Lateral X-Ray, Chest, PA & Lateral 01-30-2016 - [facility] 02-08-2016 Group ([id number]) EKG (In office) EKG (In office) 01-30-2016 - [facility] 01-30-2016 Group ([id number]) Follow Up Appt 6 weeks Follow Up Appt 6 weeks 01-30-2016 - [facility] 01-30-2016 Group ([id number]) *PT/INR *PT/INR 01-30-2016 - [facility] 01-30-2016 Group ([id number]) Left Heart Cath Left Heart Cath 01-30-2016 - [facility] 01-30-2016 Group ([id number]) MMM MMM 01-30-2016 - [facility] 01-30-2016 Group ([id number]) US Abdominal (aneurysm US Abdominal (aneurysm 01-30-2016 - [facility]) screening) 01-30-2016 Group ([id number]) *BMP *BMP 01-30-2016 - [facility] 01-30-2016 Group ([id number]) *CBC without Diff *CBC without Diff 01-30-2016 - [facility] 01-30-2016 [facility] ([id number]) X-Ray, Chest, PA & Lateral X-Ray, Chest, PA & Lateral 01-30-2016 - [facility] 02-08-2016 Group ([id number]) *PT/INR *PT/INR 01-30-2016 - [facility] 01-30-2016 Group ([id number]) US Abdominal (aneurysm US Abdominal (aneurysm 01-30-2016 - [facility]) screening) 01-30-2016 Group ([id number]) EKG (In office) EKG (In office) 01-30-2016 - [facility] 01-30-2016 Group ([id number]) Follow Up Appt 6 weeks Follow Up Appt 6 weeks 01-30-2016 - [facility] 01-30-2016 Group ([id number]) Left Heart Cath Left Heart Cath 01-30-2016 - [facility] 01-30-2016 Group ([id number]) MMM MMM 01-30-2016 - [facility] 01-30-2016 Group ([id number]) Follow Up Appt 3 months Follow Up Appt 3 months 01-23-2016 - [facility] 11-17-2016 Group ([id number]) Pacer Clinic Pacer Clinic 01-23-2016 - [facility] 11-17-2016 Group ([id number]) Follow Up Appt 3 months Follow Up Appt 3 months 01-23-2016 - [facility] 11-17-2016 Group ([id number]) Pacer Clinic Pacer Clinic 01-23-2016 - [facility] 11-17-2016 Group ([id number]) *Hepatic Function Panel *Hepatic Function Panel 11-05-2015 - [facility] 11-20-2015 Group ([id number]) *Lipid Profile CC PCP *Lipid Profile CC PCP 11-05-2015 - [facility] 11-20-2015 Group ([id number]) *Hepatic Function Panel *Hepatic Function Panel 11-05-2015 - [facility] 11-20-2015 Group ([id number]) *Lipid Profile CC PCP *Lipid Profile CC PCP 11-05-2015 - [facility] 11-20-2015 Group ([id number]) Follow Up Appt 3 months Follow Up Appt 3 months 10-18-2015 - [facility] 02-08-2016 Group ([id number]) Pacer Clinic Pacer Clinic 10-18-2015 - [facility] 02-08-2016 Group ([id number]) Follow Up Appt 3 months Follow Up Appt 3 months 10-18-2015 - [facility] 02-08-2016 Group ([id number]) Pacer Clinic Pacer Clinic 10-18-2015 - [facility] 02-08-2016 Group ([id number]) Follow Up Appt 3 months Follow Up Appt 3 months 07-18-2015 - [facility] 02-08-2016 Group ([id number]) Pacer Clinic Pacer Clinic 07-18-2015 - [facility] 02-08-2016 Group ([id number]) Follow Up Appt 3 months Follow Up Appt 3 months 07-18-2015 - [facility] 02-08-2016 Group ([id number]) Pacer Clinic Pacer Clinic 07-18-2015 - [facility] 02-08-2016 Group ([id number]) [facility] SATELLITE TECHNICIAN 07-03-2015 - [facility] 07-03-2015 Group ([id number]) Follow Up Appt 6 months Follow Up Appt 6 months 07-03-2015 - [facility] 07-03-2015 Group ([id number]) SATELLITE TECHNICIAN SATELLITE TECHNICIAN 07-03-2015 - [facility] 07-03-2015 Group ([id number]) Follow Up Appt 6 months Follow Up Appt 6 months 07-03-2015 - [facility] 07-03-2015 Group ([id number]) *Hepatic Function Panel *Hepatic Function Panel 06-20-2015 - [facility] 06-20-2015 Group ([id number]) *Lipid Profile CC PCP *Lipid Profile CC PCP 06-20-2015 - [facility] 06-20-2015 Group ([id number]) *Hepatic Function Panel *Hepatic Function Panel 06-20-2015 - [facility] 06-20-2015 Group ([id number]) *Lipid Profile CC PCP *Lipid Profile CC PCP 06-20-2015 - [facility] 06-20-2015 Group ([id number]) Follow Up Appt 3 months Follow Up Appt 3 months 04-13-2015 - [facility] 02-08-2016 Group ([id number]) Pacer Clinic Pacer Clinic 04-13-2015 - [facility] 02-08-2016 Group ([id number]) Follow Up Appt 3 months Follow Up Appt 3 months 04-13-2015 - [facility] 02-08-2016 Group ([id number]) Pacer Clinic Pacer Clinic 04-13-2015 - [facility] 02-08-2016 Group ([id number]) US Abdominal (aneurysm US Abdominal (aneurysm 04-11-2015 - [facility] screening) screening) 04-05-2015 Group ([id number]) US Abdominal (aneurysm US Abdominal (aneurysm 04-11-2015 - [facility]) screening) 04-05-2015 Group ([id number]) External Counterpulsation External Counterpulsation 04-06-2015 - [facility] [address] [facility], Therapy [address] [facility], 04-06-2015 Group ([id number]) [address], [place], [place], [address], [place], [id number] External Counterpulsation External Counterpulsation 04-06-2015 - [facility] [address] [facility], Therapy [address] [facility], 02-08-2016 Group ([id number]) [address] [place], [place], [address], [place], [id number] SATELLITE TECHNICIAN SATELLITE TECHNICIAN 03-29-2015 - [facility] 03-29-2015 Group ([id number]) Follow Up Appt 3 months Follow Up Appt 3 months 03-29-2015 - [facility] 03-29-2015 Group ([id number]) SATELLITE TECHNICIAN SATELLITE TECHNICIAN 03-29-2015 - [facility] 03-29-2015 Group ([id number]) Follow Up Appt 3 months Follow Up Appt 3 months 03-29-2015 - [facility] 03-29-2015 Group ([id number]) Follow Up Appt 3 months Follow Up Appt 3 months 01-05-2015 - [facility] 03-05-2015 Group ([id number]) Pacer Clinic Pacer Clinic 01-05-2015 - [facility] 03-05-2015 Group ([id number]) Follow Up Appt 3 months Follow Up Appt 3 months 01-05-2015 - [facility] 03-05-2015 Group ([id number]) Pacer Clinic Pacer Clinic 01-05-2015 - [facility] 03-05-2015 Group ([id number]) Cardiac Rehab Cardiac Rehab 12-27-2014 - [facility] 03-05-2015 Group ([id number]) Follow Up Appt 3 months Follow Up Appt 3 months 12-27-2014 - [facility] 12-27-2014 Group ([id number]) MMM MMM 12-27-2014 - [facility] 12-27-2014 Group ([id number]) Cardiac Rehab Cardiac Rehab 12-27-2014 - [facility] 03-05-2015 Group ([id number]) Follow Up Appt 3 months Follow Up Appt 3 months 12-27-2014 - [facility] 12-27-2014 Group ([id number]) MMM MMM 12-27-2014 - [facility] 12-27-2014 Group ([id number]) Follow Up BP Check Follow Up BP Check 12-11-2014 - [facility] 12-11-2014 Group ([id number]) Left Heart Cath Left Heart Cath 12-11-2014 - [facility] 12-11-2014 Group ([id number]) Follow Up BP Check Follow Up BP Check 12-11-2014 - [facility] 12-11-2014 Group ([id number]) Left Heart Cath Left Heart Cath 12-11-2014 - [facility] 12-11-2014 Group ([id number]) *BMP *BMP 12-06-2014 - [facility] 12-06-2014 Group ([id number]) Follow Up Appt Other Follow Up Appt Other 12-06-2014 - [facility] 12-06-2014 Group ([id number]) *BMP *BMP 12-06-2014 - [facility] 12-06-2014 Group ([id number]) Follow Up Appt Other Follow Up Appt Other 12-06-2014 - [facility] 12-06-2014 Group ([id number]) *Lipid Profile CC PCP *Lipid Profile CC PCP 11-28-2014 - [facility] 12-21-2014 Group ([id number]) *Lipid Profile CC PCP *Lipid Profile CC PCP 11-28-2014 - [facility] 12-21-2014 Group ([id number]) Follow Up Appt 6 months Follow Up Appt 6 months 11-03-2014 - [facility] 11-03-2014 Group ([id number]) MMM MMM 11-03-2014 - [facility] 11-03-2014 Group ([id number]) Follow Up Appt 6 months Follow Up Appt 6 months 11-03-2014 - [facility] 11-03-2014 Group ([id number]) MMM MMM 11-03-2014 - [facility] 11-03-2014 Group ([id number]) SATELLITE TECHNICIAN SATELLITE TECHNICIAN 09-27-2014 - [facility] 09-27-2014 Group ([id number]) EKG (In office) EKG (In office) 09-27-2014 - [facility] 09-27-2014 Group ([id number]) Follow Up Appt 3 months Follow Up Appt 3 months 09-27-2014 - [facility] 11-03-2014 Group ([id number]) Follow Up Appt 6 months Follow Up Appt 6 months 09-27-2014 - [facility] 09-27-2014 Group ([id number]) Pacer Clinic Pacer Clinic 09-27-2014 - [facility] 11-03-2014 Group ([id number]) SATELLITE TECHNICIAN [facility] 09-27-2014 - [facility] 09-27-2014 Group ([id number]) EKG (In office) EKG (In office) 09-27-2014 - [facility] 09-27-2014 Group ([id number]) Follow Up Appt 3 months Follow Up Appt 3 months 09-27-2014 - [facility] 11-03-2014 Group ([id number]) Follow Up Appt 6 months Follow Up Appt 6 months 09-27-2014 - [facility] 09-27-2014 Group ([id number]) Pacer Clinic Pacer Clinic 09-27-2014 - [facility] 11-03-2014 Group ([id number]) *Hepatic Function Panel *Hepatic Function Panel 07-28-2014 - [facility] 08-25-2014 Group ([id number]) *Lipid Profile CC PCP *Lipid Profile CC PCP 07-28-2014 - [facility] 08-25-2014 Group ([id number]) *Hepatic Function Panel *Hepatic Function Panel 07-28-2014 - [facility] 08-25-2014 Group ([id number]) *Lipid Profile CC PCP *Lipid Profile CC PCP 07-28-2014 - [facility] 08-25-2014 Group ([id number]) Follow Up Appt 3 months Follow Up Appt 3 months 06-12-2014 - [facility] 09-15-2014 Group ([id number]) Pacer Clinic Pacer Clinic 06-12-2014 - [facility] 09-15-2014 Group ([id number]) Follow Up Appt 3 months Follow Up Appt 3 months 06-12-2014 - [facility] 09-15-2014 Group ([id number]) Pacer Clinic Pacer Clinic 06-12-2014 - [facility] 09-15-2014 Group ([id number]) Follow Up Appt 3 months Follow Up Appt 3 months 03-14-2014 - [facility] 09-15-2014 Group ([id number]) Follow Up Appt 6 months Follow Up Appt 6 months 03-14-2014 - [facility] 03-14-2014 Group ([id number]) MMM MMM 03-14-2014 - [facility] 03-14-2014 Group ([id number]) Pacer Clinic Pacer Clinic 03-14-2014 - [facility] 09-15-2014 Group ([id number]) Follow Up Appt 3 months Follow Up Appt 3 months 03-14-2014 - [facility] 09-15-2014 Group ([id number]) Follow Up Appt 6 months Follow Up Appt 6 months 03-14-2014 - [facility] 03-14-2014 Group ([id number]) MMM MMM 03-14-2014 - [facility] 03-14-2014 Group ([id number]) Pacer Clinic Pacer Clinic 03-14-2014 - [facility] 09-15-2014 Group ([id number]) *Hepatic Function Panel *Hepatic Function Panel 01-28-2014 - [facility] 02-06-2014 Group ([id number]) *Lipid Profile CC PCP *Lipid Profile CC PCP 01-28-2014 - [facility] 02-06-2014 Group ([id number]) *Hepatic Function Panel *Hepatic Function Panel 01-28-2014 - [facility] 02-06-2014 Group ([id number]) *Lipid Profile CC PCP *Lipid Profile CC PCP 01-28-2014 - [facility] 02-06-2014 Group ([id number]) Follow Up Appt 2 months Follow Up Appt 2 months 12-16-2013 - [facility] 09-15-2014 Group ([id number]) Pacer Clinic Pacer Clinic 12-16-2013 - [facility] 09-15-2014 Group ([id number]) Follow Up Appt 2 months Follow Up Appt 2 months 12-16-2013 - [facility] 09-15-2014 Group ([id number]) Pacer Clinic Pacer Clinic 12-16-2013 - [facility] 09-15-2014 Group ([id number]) Follow Up Appt 3 months Follow Up Appt 3 months 09-15-2013 - [facility] 09-15-2014 Group ([id number]) Pacer [facility] 09-15-2013 - [facility] 09-15-2014 Group ([id number]) Follow Up Appt 3 months Follow Up Appt 3 months 09-15-2013 - [facility] 09-15-2014 Group ([id number]) Pacer Clinic Pacer Clinic 09-15-2013 - [facility] 09-15-2014 Group ([id number]) SATELLITE TECHNICIAN SATELLITE TECHNICIAN 09-06-2013 - [facility] 09-06-2013 Group ([id number]) Follow Up Appt 6 months Follow Up Appt 6 months 09-06-2013 - [facility] 09-06-2013 Group ([id number]) SATELLITE TECHNICIAN SATELLITE TECHNICIAN 09-06-2013 - [facility] 09-06-2013 Group ([id number]) Follow Up Appt 6 months Follow Up Appt 6 months 09-06-2013 - [facility] 09-06-2013 Group ([id number]) *Hepatic Function Panel *Hepatic Function Panel 07-28-2013 - [facility] 08-08-2013 Group ([id number]) *Lipid Profile CC PCP *Lipid Profile CC PCP 07-28-2013 - [facility] 08-08-2013 Group ([id number]) *Hepatic Function Panel *Hepatic Function Panel 07-28-2013 - [facility] 08-08-2013 Group ([id number]) *Lipid Profile CC PCP *Lipid Profile CC PCP 07-28-2013 - [facility] 08-08-2013 Group ([id number]) Follow Up Appt 3 months Follow Up Appt 3 months 06-08-2013 - [facility] 08-25-2013 Group ([id number]) Pacer Clinic Pacer Clinic 06-08-2013 - [facility] 08-25-2013 Group ([id number]) Follow Up Appt 3 months Follow Up Appt 3 months 06-08-2013 - [facility] 08-25-2013 Group ([id number]) Pacer Clinic Pacer Clinic 06-08-2013 - [facility] 08-25-2013 Group ([id number]) Follow Up Appt 3 months Follow Up Appt 3 months 03-09-2013 - [facility] 05-17-2013 Group ([id number]) Pacer Clinic Pacer Clinic 03-09-2013 - [facility] 05-17-2013 Group ([id number]) Follow Up Appt 3 months Follow Up Appt 3 months 03-09-2013 - [facility] 05-17-2013 Group ([id number]) Pacer Clinic Pacer Clinic 03-09-2013 - [facility] 05-17-2013 Group ([id number]) EKG (In office) EKG (In office) 03-08-2013 - [facility] 05-17-2013 Group ([id number]) Follow Up Appt 6 months Follow Up Appt 6 months 03-08-2013 - [facility] 05-17-2013 Group ([id number]) MMM MMM 03-08-2013 - [facility] 05-17-2013 Group ([id number]) EKG (In office) EKG (In office) 03-08-2013 - [facility] 05-17-2013 Group ([id number]) Follow Up Appt 6 months Follow Up Appt 6 months 03-08-2013 - [facility] 05-17-2013 Group ([id number]) MMM MMM 03-08-2013 - [facility] 05-17-2013 Group ([id number]) *Hepatic Function Panel *Hepatic Function Panel 01-28-2013 - [facility] 02-04-2013 Group ([id number]) *Lipid Profile *Lipid Profile 01-28-2013 - [facility] 02-04-2013 Group ([id number]) *Hepatic Function Panel *Hepatic Function Panel 01-28-2013 - [facility] 02-04-2013 Group ([id number]) *Lipid Profile *Lipid Profile 01-28-2013 - [facility] 02-04-2013 Group ([id number]) Follow Up Appt 3 months Follow Up Appt 3 months 12-08-2012 - [facility] 05-17-2013 Group ([id number]) Pacer [facility]er [facility] 12-08-2012 - [facility] 05-17-2013 Group ([id number]) Follow Up Appt 3 months Follow Up Appt 3 months 12-08-2012 - [facility] 05-17-2013 Group ([id number]) Pacer [facility]er [facility] 12-08-2012 - [facility] 05-17-2013 Group ([id number]) Follow Up Appt 6 months Follow Up Appt 6 months 11-25-2012 - [facility] 11-25-2012 Group ([id number]) MMM MMM 11-25-2012 - [facility] 11-25-2012 Group ([id number]) Follow Up Appt 6 months Follow Up Appt 6 months 11-25-2012 - [facility] 11-25-2012 Group ([id number]) MMM MMM 11-25-2012 - [facility] 11-25-2012 Group ([id number]) Follow Up Appt 3 months Follow Up Appt 3 months 09-03-2012 - [facility] 05-17-2013 Group ([id number]) Pacer [facility] Pacer Clinic 09-03-2012 - [facility] 05-17-2013 Group ([id number]) Follow Up Appt 3 months Follow Up Appt 3 months 09-03-2012 - [facility] 05-17-2013 Group ([id number]) Pacer [facility] 09-03-2012 - [facility] 05-17-2013 Group ([id number]) *BMP *BMP 09-01-2012 - [facility] 03-04-2012 Group ([id number]) *Hepatic Function Panel *Hepatic Function Panel 09-01-2012 - [facility] 05-17-2013 Group ([id number]) *Lipid Profile *Lipid Profile 09-01-2012 - [facility] 05-17-2013 Group ([id number]) *Magnesium *Magnesium 09-01-2012 - [facility] 05-17-2013 Group ([id number]) *BMP *BMP 09-01-2012 - [facility] 03-04-2012 Group ([id number]) *Hepatic Function Panel *Hepatic Function Panel 09-01-2012 - [facility] 05-17-2013 Group ([id number]) *Lipid Profile *Lipid Profile 09-01-2012 - [facility] 05-17-2013 Group ([id number]) *Magnesium *Magnesium 09-01-2012 - [facility] 05-17-2013 Group ([id number]) Follow Up Appt 6 months Follow Up Appt 6 months 03-04-2012 - [facility] 03-04-2012 Group ([id number]) Follow Up Appt 6 months Follow Up Appt 6 months 03-04-2012 - [facility] 03-04-2012 Group ([id number]) *Hepatic Function Panel *Hepatic Function Panel 02-04-2012 - [facility] 02-11-2012 Group ([id number]) *Lipid Profile *Lipid Profile 02-04-2012 - [facility] 02-11-2012 Group ([id number]) *Hepatic Function Panel *Hepatic Function Panel 02-04-2012 - [facility] 02-11-2012 Group ([id number]) *Lipid Profile *Lipid Profile 02-04-2012 - [facility] 02-11-2012 Group ([id number]) Follow Up Appt 4 months Follow Up Appt 4 months 11-24-2011 - [facility] 11-24-2011 Group ([id number]) Follow Up Appt 4 months Follow Up Appt 4 months 11-24-2011 - [facility] 11-24-2011 Group ([id number]) *Hepatic Function Panel *Hepatic Function Panel 10-29-2011 - [facility] 10-27-2011 Group ([id number]) *Lipid Profile *Lipid Profile 10-29-2011 - [facility] 10-27-2011 Group ([id number]) *Hepatic Function Panel *Hepatic Function Panel 10-29-2011 - [facility] 10-27-2011 Group ([id number]) *Lipid Profile *Lipid Profile 10-29-2011 - [facility] 10-27-2011 Group ([id number]) *BMP *BMP 10-16-2011 - [facility] 10-27-2011 Group ([id number]) *BMP *BMP 10-16-2011 - [facility] 10-27-2011 Group ([id number]) EKG (In office) EKG (In office) 08-26-2011 - [facility] 08-26-2011 Group ([id number]) Follow Up Appt 3 months Follow Up Appt 3 months 08-26-2011 - [facility] 08-26-2011 Group ([id number]) EKG (In office) EKG (In office) 08-26-2011 - [facility] 08-26-2011 Group ([id number]) Follow Up Appt 3 months Follow Up Appt 3 months 08-26-2011 - [facility] 08-26-2011 Group ([id number]) EKG (In office) EKG (In office) 06-27-2011 - [facility] 06-27-2011 Group ([id number]) Follow Up Appt 2 months Follow Up Appt 2 months 06-27-2011 - [facility] 06-27-2011 Group ([id number]) EKG (In office) EKG (In office) 06-27-2011 - [facility] 06-27-2011 Group ([id number]) Follow Up Appt 2 months Follow Up Appt 2 months 06-27-2011 - [facility] 06-27-2011 Group ([id number]) Follow Up Appt 4 months Follow Up Appt 4 months 06-10-2011 - [facility] 06-10-2011 Group ([id number]) Follow Up Appt 4 months Follow Up Appt 4 months 06-10-2011 - [facility] 06-10-2011 Group ([id number]) Patient education no information [facility] Group ([id number]) no information [facility] ([id number]) Immunizations Vaccine Notes Status Date Location Influenza Vaccine, influenza virus (completed) 01-06-2013 - [facility] Split-Non Spec vaccine, unspecified 01-06-2013 (4419 [id number]) formulation Influenza Seasonal - influenza, high dose (completed) 01-14-2019 - [facility] High Dose - Age 65+ seasonal, 01-14-2019 ([id number]) preservative-free Influenza Seasonal - influenza, high dose (completed) 01-26-2018 - [facility] High Dose - Age 65+ seasonal, 01-26-2018 ([id number]) preservative-free Influenza Seasonal - influenza, high dose (completed) 01-19-2017 - [facility] High Dose - Age 65+ seasonal, 01-19-2017 ([id number]) preservative-free Influenza Seasonal - influenza, high dose (completed) 01-18-2016 - [facility] High Dose - Age 65+ seasonal, 01-18-2016 ([id number]) preservative-free Influenza Seasonal - influenza, high dose (completed) 01-24-2015 - [facility] High Dose - Age 65+ seasonal, 01-24-2015 ([id number]) preservative-free Novel Influenza H1N1, novel (completed) 01-31-2009 - [facility] preservative free [id number], 01-31-2009 ([id number]) preservative-free, injectable Pneumococcal-13 Vac pneumococcal (completed) 06-07-2014 - [facility] Conjugate conjugate vaccine, 13 06-07-2014 ([id number] ) valent Tdap (Age 7+) tetanus toxoid, (completed) 09-16-2007 - [facility] linic reduced diphtheria 09-16-2007 ([id number]) toxoid, and acellular pertussis vaccine, adsorbed Payers Payer Name Policy Number Location MEDICARE [id number] [facility] (44 195) MEDICARE PART B [id number] [facility] ([id number]) MUTUAL [facility] [id number] [facility] (44 195) The following information is from the original human readable contentNo Payer Records Found Social History Type Social History Date Location Description History of tobacco use Current smoker 08-12-2007 [facility] ([id number]) History SDOH Social 2 12-17-2018 - [facility] Membership 09-09-2019 ([id number]) History of tobacco use Cigar Smoker 08-12-2007 [facility] ([id number]) Tobacco use and exposure Never used 10-27-2019 - [facility] 10-27-2019 ([id number]) Alcohol intake Current non-drinker of 10-27-2019 [facility] alcohol (finding) 10-27-2019 ([id number]) History SDOH Alcohol 1 09-09-2019 - [facility] linic Frequency 09-09-2019 ([id number]) History SDOH Social 98 09-09-2019 - [facility] Phone 09-09-2019 ([id number]) Tobacco smoking status Former smoker 10-27-2019 - [facility] NHIS 10-27-2019 ([id number]) History SDOH Social 3 12-17-2018 - [facility] 12-17-2018 ([id number]) History SDOH Physical 0 09-09-2019 - [facility] Activity DPW 09-09-2019 ([id number]) History SDOH Stress 5 09-09-2019 - [facility] 09-09-2019 ([id number]) History SDOH Education 12 09-09-2019 - [facility] 09-09-2019 ([id number]) Sex Assigned At Not on file [facility] ([id number]) Exposure to SARS-CoV-2 Not sure [facility] (event) ([id number]) The following information is from the original [...] Each five times 07-19-2019 daily. Use with [employer] 09-16-2013 Glucometer as directed Goals Patient Goal [...] - 11/21/2019 3:30 PM EDT TELEPHONIC APPOINTMENT [place] law requires the collaborative practice agreement to [...] pharmacotherapy management appointment for diabetes. 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 At PharmD visit on , insulin lispro dose was decreased and patient was recommended to pursue basal/bolus insulin pens through [employer] patient assistance. 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 Diverticulosis of colon (without [...] disease, with long-term current use of insulin ([facility]) 06/15/2017 ? Unspecified essential hypertension ALLERGIES [...] G47.33 327.23 - fax compliance download to [phone] 1 Device 0 ? flash glucose sensor [...] once daily. 0 ? blood sugar diagnostic ([facility] BLOOD GLUCOSE SYSTEM) test strip Use as [...] (ONE TOUCH ULTRASOFT LANCETS) lancets Use with [employer] Glucometer as directed 100 Each 3 ? [...] disease, with long-term current use of insulin ([facility]) - ICD9: 250.40, 585.3, V58.67, ICD10: [...] approval of new basal/bolus insulin pens from [facility].?Renal function and LFTs appropriate for continued use. [place] law requires the collaborative practice agreement to [...] for switching to Basaglar and Humalog through [employer] patient assistance, will replace current insulins. ? ACEi/ARB for renal protection:?yes, Scr and K+ ok to continue ? HbA1c: 01/14/2020 Patient is not scheduled to see PCP. Patient to follow up with PharmD, pt to call me by end of week with update on if approved by PAP. Patient verbalized understanding of instructions. Denita Thorpe, LisaD, BCACP Primary Care Clinical Pharmacist [facility] documented in this encounter Assessments Diagnosis Type [...] BE BASED ON THE PRIMARY CLINICAL RECORDS. [employer] provides no warranty or guarantee of the accuracy or completeness of information in this document. UNRECOGNIZED CONTENT PROVIDED BELOW FOR UNRECOGNIZED SECTION Source Comments In the event this information is protected by the Federal Confidentiality of Alcohol and Drug Abuse Patient Records regulations: The Federal rules restrict any use of the information to criminally investigate or prosecute any alcohol or drug abuse patient.[facility] the event this information is protected by the Federal Confidentiality of Alcohol and Drug Abuse Patient Records regulations: The Federal rules restrict any use of the information to criminally investigate or prosecute any alcohol or drug abuse patient.[facility] the event this information is protected by the Federal Confidentiality of Alcohol and Drug Abuse Patient Records regulations: The Federal rules restrict any use of the information to criminally investigate or prosecute any alcohol or drug abuse patient.[facility] the event this information is protected by the Federal Confidentiality of Alcohol and Drug Abuse Patient Records regulations: The Federal rules restrict any use of the information to criminally investigate or prosecute any alcohol or drug abuse patient.[facility] HospitalIn the event this information is protected by the Federal Confidentiality of Alcohol and Drug Abuse Patient Records regulations: The Federal rules restrict any use of the information to criminally investigate or prosecute any alcohol or drug abuse patient.[facility]In the event this information is protected by the Federal Confidentiality of Alcohol and Drug Abuse Patient Records regulations: The Federal rules restrict any use of the information to criminally investigate or prosecute any alcohol or drug abuse patient.[facility]In the event this information is protected by the Federal Confidentiality of Alcohol and Drug Abuse Patient Records regulations: The Federal rules restrict any use of the information to criminally investigate or prosecute any alcohol or drug abuse patient.[facility] HospitalIn the event this information is protected by the Federal Confidentiality of Alcohol and Drug Abuse Patient Records regulations: The Federal rules restrict any use of the information to criminally investigate or prosecute any alcohol or drug abuse patient.[facility]In the event this information is protected by the Federal Confidentiality of Alcohol and Drug Abuse Patient Records regulations: The Federal rules restrict any use of the information to criminally investigate or prosecute any alcohol or drug abuse patient.[facility]In the event this information is protected by the Federal Confidentiality of Alcohol and Drug Abuse Patient Records regulations: The Federal rules restrict any use of the information to criminally investigate or prosecute any alcohol or drug abuse patient.[facility] HospitalIn the event this information is protected by the Federal Confidentiality of Alcohol and Drug Abuse Patient Records regulations: The Federal rules restrict any use of the information to criminally investigate or prosecute any alcohol or drug abuse patient.[facility] HospitalIn the event this information is protected by the Federal Confidentiality of Alcohol and Drug Abuse Patient Records regulations: The Federal rules restrict any use of the information to criminally investigate or prosecute any alcohol or drug abuse patient.[facility] HospitalIn the event this information is protected by the Federal Confidentiality of Alcohol and Drug Abuse Patient Records regulations: The Federal rules restrict any use of the information to criminally investigate or prosecute any alcohol or drug abuse patient.[facility] HospitalIn the event this information is protected by the Federal Confidentiality of Alcohol and Drug Abuse Patient Records regulations: The Federal rules restrict any use of the information to criminally investigate or prosecute any alcohol or drug abuse patient.[facility] HospitalIn the event this information is protected by the Federal Confidentiality of Alcohol and Drug Abuse Patient Records regulations: The Federal rules restrict any use of the information to criminally investigate or prosecute any alcohol or drug abuse patient.[facility] UNRECOGNIZED CONTENT PROVIDED BELOW FOR UNRECOGNIZED SECTION No Status Records FoundNo Status Records Found UNRECOGNIZED CONTENT PROVIDED BELOW FOR UNRECOGNIZED SECTION INFORMATION SOURCE DATE CREATED AUTHOR AUTHOR'S ORGANIZATIO N 09/22/2017 [facility] DATE CREATED AUTHOR AUTHOR'S ORGANIZATIO N 01/07/2020 [facility] UNRECOGNIZED CONTENT PROVIDED BELOW FOR [...] 11/28/2019 4:36 PM EDTCalled and [facility] with [facility], they confirm that Basaglar is ready for delivery. Will arrive tomorrow. Called and spoke with pt's , Ila to ensure someone over the age of 18 is home to sign for package. She verbalized understanding. Denita Thorpe PharmD, BCACP Primary Care Clinical Pharmacist [facility] Telephone Encounter - Kemi (Pharmacist)Denita - 11/23/2019 1:25 PM EDTOrders for both Humalog and Basaglar (to replace Humulin) were sent to [facility] on 10[facility]23. Attempted to call [facility] to clarify, unable to reach construction sales representative. Was able to leave voicemail on [...] Thorpe PharmD, BCACP Primary Care Clinical Pharmacist [facility] Telephone Encounter - Ronen Avery LPN - 11/23/2019 10:35 AM EDTPt calls to state he would like to let Denita know that he received his Humalog quick pens but has notreceived his Humulin quick pens yet. Ronen Avery LPN documented in this encounterTelephone Encounter - Emilie (Pharmacist), Gabriela - 12/06/2019 5:22 PM EDT [facility] Referring provider: No ref. provider found Lovely Devi is a 74 year old year old male patient being evaluated today for anticoagulation Telemanagement visit. Patient is currently on the following anticoagulant Warfarin Labs PT INR (no units) Date Value 11/26/2018 Test sent to [facility]. 10/16/2017 1.8 01/16/2017 Test sent to [facility]. INR (POCT) (no units) Date Value 02/21/2019 [...] Pharmacy Anticoagulation Clinic Pharmacy Anticoagulation Clinic Pager: [phone] Description Patient has 3 mg tablets of warfarin. Patient takes in the morning. . Telephone Encounter - Shawn (X Ray Control Equipment Repairer), Cristina - 12/06/2019 5:13 PM EDT Patient called and left message that stated he received a message re: his INR result and dosing but he couldn't understand what dose to take of his warfarin. Patient can be reached at [phone]. Cristina Escobar CPhT (Intake Coordinator) Pharmacy Anticoagulation Clinic Telephone Encounter - Andre (Pharmacist)Lee - 12/06/2019 3:29 PM EDT [facility] Lovely Devi is a 74 year old year old male patient being evaluated today for anticoagulation Telemanagement visit. Patient is currently on the following anticoagulant Warfarin Labs PT INR (no units) Date Value 11/26/2018 Test sent to [facility]. 10/16/2017 1.8 01/16/2017 Test sent to [facility]. INR (POCT) (no units) Date Value 02/21/2019 [...] information and advised to call PAC at [phone] if any questions or changes to report. Would like to try one more time to reach patient. INR 2 weeks ago was low and leftVM for patient so not sure if he got message. Lee Moss, Pharmacist Clinical Pharmacist, Pharmacy Anticoagulation Clinic Pharmacy Anticoagulation Clinic Pager: [phone] Description Patient has 3 mg tablets of [...] Tasha Chan RN - [facility]- reporting POC- reports this was a delay [...] Thorpe, PharmD, BCACP Primary Care Clinical Pharmacist [facility] Telephone Encounter - Cindi Pichardo RN - [...] Blossom (Pharmacist)Joleen - 12/21/2019 9:15 AM EDT [facility] Referring provider: No ref. provider found Lovely Devi is a 74 year old year old male patient being evaluated today for anticoagulation Telemanagement visit. Patient is currently on the following anticoagulant Warfarin Labs PT INR (no units) Date Value 11/26/2018 Test sent to [facility]. 10/16/2017 1.8 01/16/2017 Test sent to [facility]. INR (POCT) (no units) Date Value 02/21/2019 [...] of liver or green tea, Ensure, Boost, Voss Instant Breakfast, Mulit-Vitamins, and V-8. Plan: ? Advised patient to continue with a higher weekly warfarin dose at this time. ? Next home INR check scheduled on 01/04/2020 ? Patient verbalizes understanding of the plan. JOLEEN CERRATO PHARMACIST Clinical Pharmacist, Pharmacy Anticoagulation Clinic Pharmacy Anticoagulation Clinic Pager: [phone] Description Patient has 3 mg tablets of [...] 5:51 PM EDTPatient notified, voiced understanding. Linwood Carpenter CMA Patient wants to know how long after he resumes his coumadin should he get his INR checked, he goes back on coumadin on 01/08, his next scheduled INR is 01/10. Please advise. Electronically signed by Linwood GonzálesS[facility]) JAZZY Carpenter at 12/27/2019 5:53 PM EDT [...] Thorpe, PharmD, BCACP Primary Care Clinical Pharmacist [facility] documented in this encounter UNRECOGNIZED CONTENT PROVIDED BELOW FOR UNRECOGNIZED SECTION Reason for Visit Reason Onset Date Comments Medication Update 11/23/2019 Reason Comments Allied Health Visit DM Reason Onset Date Comments Anticoagulation Telephone Fu 12/06/2019 Home INR re sult Reason Onset Date Comments Refill Request 12/07/2019 Reason Onset Date Comments [facility] OT POC 12/08/2019 Reason Onset Date Comments insulin did not arrive 11/30/2019 Reason Comments Outside Lab Results CBC, BMP Reason Onset Date Comments Anticoagulation Telephone Fu 12/20/2019 Home INR re sult Reason Onset Date Comments Patient Question 12/27/2019 Reason Onset Date Comments Refill Request 01/06/2020
== END 2019-08-16 04:31 | disposition home or self-care (01) ==
PROVIDERS: Emergency Provider Emergency Medicine; PCP Family Medicine
DX: Z03.818 Encounter for observation for suspected exposure to other biological agents ruled out (principal); I89.0 Lymphedema, not elsewhere classified; I87.2 Venous insufficiency (chronic) (peripheral); I45.10 Unspecified right bundle-branch block; E66.9 Obesity, unspecified; I50.9 Heart failure, unspecified; E78.5 Hyperlipidemia, unspecified; I25.5 Ischemic cardiomyopathy; I47.2 Ventricular tachycardia; I25.2 Old myocardial infarction; I48.92 Unspecified atrial flutter; Z95.810 Presence of automatic (implantable) cardiac defibrillator; Z79.4 Long term (current) use of insulin; Z79.82 Long term (current) use of aspirin; Z79.02 Long term (current) use of antithrombotics/antiplatelets; Z79.01 Long term (current) use of anticoagulants; Z79.899 Other long term (current) drug therapy; Z87.891 Personal history of nicotine dependence
CPT/HCPCS: 71046; 80048; 83880; 84484; 85025; 85610; 87635; 93005; 99285; G2023; U0002; U0004

== ENCOUNTER 2019-09-05 15:45 | Inpatient (IN) | payer MEDICARE, OTHER, SELFPAY ==
[2017-11-06 10:25] VITALS: BMI 37.2
[2019-09-05] VITALS (9 sets, daily range): BP systolic 113–163; BP diastolic 67–96; PULSE 57–68; RESP 15–19; TEMP 36.3–36.9; O2SAT 96–98; BMI 39.5; BMI 39.8
--- NOTE | 2019-09-05 16:16 | EKG12_ITS ---
Test Reason : SOB Blood Pressure : / mmHG Vent. Rate : 059 BPM Atrial Rate : 059 BPM P-R Int : 196 ms QRS Dur : 120 ms QT Int : 478 ms P-R-T Axes : 038 -14 018 degrees QTc Int : 473 ms Sinus bradycardia with Fusion complexes Inferior infarct , age undetermined Cannot rule out Anterior infarct , age undetermined Abnormal ECG Confirmed by CA SIMMONS, ROBERT ([id number]), newspaper editor managing IRIS TUTTLE ([id number]) on 09/07/2019 9:15:21 AM Referred By: Confirmed By:ROBERT PENALOZA MD
--- NOTE | 2019-09-05 16:17 | VDLE_ITS ---
Reason For Study: SWELLING RIGHT LEFT GSV is normal. GSV is normal. CFV is compressible, spontaneous, phasic, CFV is compressible, spontaneous, phasic, competent and demonstrates normal competent, and demonstrates normal augmentation. augmentation. FV is compressible, spontaneous, phasic, FV is compressible, spontaneous, phasic, competent and demonstrates normal competent and demonstrates normal augmentation. augmentation. POP V is compressible, spontaneous, phasic, POP V is compressible, spontaneous, phasic, competent and demonstrates normal competent and demonstrates normal augmentation. augmentation. T/P Trunk is compressible. T/P Trunk is compressible. PTV is compressible. PTV is compressible. RT PerV is compressible. LT PerV is compressible. Procedure Exam performed portable in ED. The study was technically difficult. The study was technically limited. Limited due to pitting edema/bandages. A preliminary report was called and/or faxed to ED. Interpretation Summary Deep veins of the lower extremities are bilaterally patent and compressible segmentally. There is no evidence of deep vein thrombosis on either side. Valvular competence appears intact within the proximal deep venous systems bilaterally. The great saphenous veins appear bilaterally patent and compressible segmentally. Ordering Physician: Kirsten Saldaña Referring Physician: MORGAN VALDEZ Performed By: Rosana Rios, EMMA, RVT
--- NOTE | 2019-09-05 16:18 | ED.DCSUM_ITS ---
- ER Visit Summary Date of Service: 09/05/19 Chief Complaint: Shortness of breath History of Present Illness: The patient is a 73 M presenting with shortness of breath. Patient states he was seen in the ED 3 weeks ago for similar complaints and has been progressively worsening since that time. He has shortness of breath when he walks or lays flat. He has increasing lower extremity swelling. He states 3 days ago he developed a blister on the top of his right foot and since then has had increasing redness of his right lower extremity. He has intermittent chest pain but no chest pain today. He denies fever or cough. Denies other complaints. Physical Examination: Vitals are stable. Patient is afebrile. Alert no acute distress. HEENT exam is unremarkable. Neck is supple. Lungs are diminished bilaterally. Heart is regular rate and rhythm. Abdomen is soft nontender nondistended. Extremities right greater than left lower extremity edema with erythema RLE and venous statis skin changes Skin is warm and dry. No focal neurologic deficit. Remainder of exam is unremarkable. Emergency Department Course and Treatment: EKG is sinus bradycardia rate of 59, unchanged from previous. Bilateral lower extremity Doppler shows no evidence of DVT. CBC, chemistries unremarkable other than BUN 33, creatinine 1.35. INR 2.3. Troponin is negative. Blood cultures were sent. Chest x-ray shows no acute process. He was given clindamycin IV for his cellulitis and Lasix IV. Discussed with Dr. Parisi. BNP was added on. Patient will be admitted. Disposition: Admission Impression: CHF exacerbation, right lower extremity cellulitis This note was generated with [employer] dictation software. It may contain incorrect words, spelling, and punctuation that were not noted in review of the chart prior to signing ED Disposition - Plan for ED Patient: Referrals: Gilbert Keyes III, MD [Primary Care Provider] -
--- NOTE | 2019-09-05 16:45 | RAD_ITS ---
STUDY: X-RAY CHEST REASON FOR EXAM: Male, 73 years old. sob TECHNIQUE: Single AP portable view of the chest. COMPARISON: August 16, 2019 FINDINGS: Left chest cardiac device and lead are stable. The lungs are clear and expanded. There is no demonstrated pleural abnormality. Normal size heart. Stable visualized mediastinum and osseous structures. RAD/Chest 1 View (Portable) IMPRESSION: No visualized acute process Electronically Signed: Fahad Evans MD at 17:30 EDT , Service support ,
[2019-09-05 16:58] LABS: International Normalized Ratio 2.3; Prothrombin Time (Protime)PT. 24.5 SECONDS (11.7-14.9)
[2019-09-05 17:02] LABS: Absolute Lymphocyte Count 1.07 X10^3/uL (0.83-4.51); Absolute Neutrophil Count 5.2 X10^3/uL (2.0-7.7); Anion Gap 7 (5-15); BUN 33 mg/dL (7-18); BUN/Creat Ratio 24.4 RATIO (10-20); Basophil# 0.04 X10^3/uL; Basophil% 0.6 % (0-1); Calcium,Total 8.8 mg/dL (8.5-10.1); Chloride 104 mmol/L (98-107); Creatinine, Serum 1.35 mg/dL (0.70-1.30); EST Glomerular Filtration Rate 55 mL/min (>60); Eosinophil# 0.21 X10^3/uL; Eosinophils% 2.9 % (0-5); Est Glom Filt Rate - Afr Amer 67 mL/min (>60); Estimated Creatinine Clearance 47.15 ml/min; Glucose 86 mg/dL (74-106); Hematocrit 39.1 % (40-54); Hemoglobin 12.7 g/dL (13.0-16.5); Lymphocyte # 1.07 X10^3/ul (4.0); Lymphocyte % 14.9 % (19-41); Mean Corp Hgb Conc 32.5 g/dL (32-36); Mean Corpuscular Hgb 29.7 pg (27.0-32.0); Mean Corpuscular Volume 91.4 fL (80-94); Mean Platelet Vol. 9.8 fl (6.2-12.0); Monocyte# 0.54 X10^3/uL; Monocyte% 7.5 % (0-10); NRBC Flagged by Analyzer 0 % (0-5); Neutrophil # 5.23 X10^3/uL (2.7-7.7); Neutrophil % 73.1 % (47-70); Platelet Count 168 K/mm3 (150-450); Potassium 4.2 mmol/L (3.5-5.1); RBC Distribution Width CV 13.7 % (11.6-14.6); RBC Distribution Width SD 45.8 fl (35.1-43.9); Red Blood Count 4.28 M/mm3 (4.6-6.2); Sodium Level 140 mmol/L (136-145); White Blood Count 7.2 K/mm3 (4.4-11.0)
[2019-09-05] MEDS: Furosemide 40 MG/4 ML Vial IV (17:59)
--- NOTE | 2019-09-05 18:07 | HP.PCM_ITS ---
History of Present Illness Date of Admission: 09/05/19 Chief Complaint: Shortness of breath The patient is a 73 year old M with an extensive past medical history as outlined was admitted through the ED on 09/05/2019 with a complaint of shortness of breath. He says shortness of breath have been going on for several weeks but had gradually worsened. He had associated orthopnea and PND but denied any cough, fever or chills, nausea or vomiting. He had swelling of his lower extremities. He had a negative COVID test in july 2019. He had same shortness of breath then, and it has persisted since. He does have a history of heart failure and states he has been compliant with his Lasix but admits to eating a salt rich diet. In the ED, vitals were significant for temperature of 98.4 with blood pressure of 137/83, pulse rate of 57 and respiratory rate of 15. He was saturating 97% on room air. Chemistry essentially unremarkable. Initial troponin was negative. CBC showed hemoglobin of 12.7 and WBC of 7.2 with platelets of 168. BNP was pending. Chest x-ray showed no acute cardiopulmonary process. He has been admitted to be managed for acute CHF exacerbation. [] Past Medical History Past Medical History (Chronic Problems): Chronic Problems (Last Reviewed 01/28/19 @ 09:[address] Johan Perry MD) Atherosclerotic heart disease of [place] coronary artery with other forms of angina pectoris (Chronic) HKS-Fnetn-Nef Cx; PCI-Cutting Balloon Angioplasty of ISR-ostium of prox lat CX 11/22/02; PCI-stent to proximal OM 01/2008; PCI- PKK-GTN-Teaw OM 12/15/13;LHC w/FFR of LAD, D1, LCx 05/30/2016 Old inferior wall myocardial infarction (Chronic) Ischemic cardiomyopathy (Chronic) History of coronary artery stent placement (Chronic 12/15/14) LPT-Ovpey-FQ2; PCI-Cutting Balloon Angioplasty of ISR-ostium of prox OM1 11/22/02; PCI-stent to proximal OM1 01/2008; PCI- [id number] OM1 w/ 2.5 x 12 mm Promus Premier 12/15/14 History of implantable cardiac defibrillator (ICD) (Chronic 11/19/17) 11/23/2002, Generator change 2017 Acute systolic (congestive) heart failure (Chronic) Paroxysmal atrial flutter (Chronic) Nonsustained ventricular tachycardia (Chronic) Hyperlipidemia (Chronic) Medical History: Medical History (Last Reviewed 01/28/19 @ 09:[address] Johan Perry MD) Atherosclerotic heart disease of [place] coronary artery with other forms of angina pectoris (Chronic) I25.118 QAX-Rhnbn-Lcy Cx; PCI-Cutting Balloon Angioplasty of ISR-ostium of prox lat CX 11/22/02; PCI-stent to proximal OM 01/2008; PCI- [id number]-[id number] OM 12/15/13;C w/FFR of LAD, D1, LCx 05/30/2016 Old inferior wall myocardial infarction (Chronic) I25.2 Ischemic cardiomyopathy (Chronic) I25.5 Acute systolic (congestive) heart failure (Chronic) I50.21 Paroxysmal atrial flutter (Chronic) I48.92 Nonsustained ventricular tachycardia (Chronic) I47.2 Hyperlipidemia (Chronic) E78.5 Diabetes mellitus type 2 in obese E11.69, E66.9 History of non-ST elevation myocardial infarction (NSTEMI) Onset Date: 11/05/16 I25.2 Obesity E66.9 Type 2 diabetes mellitus E11.9 History of deep vein thrombosis (DVT) of lower extremity Z86.718 Nonrheumatic tricuspid (valve) insufficiency (Inactive) I36.1 Allergies ceftriaxone sodium [From Rocephin] Allergy (Verified 09/05/19 15:45) Rash milk Adverse Reaction (Verified 09/05/19 15:45) Diarrhea morphine Adverse Reaction (Verified 09/05/19 15:45) hallucinations Home Medications: Ambulatory Orders Medication Instructions Recorded Clopidogrel Bisulfate [Plavix] 75 mg PO DAILY 12/04/14 Insulin Lispro [Humalog] 20 unit SQ TIDCM 08/25/17 Lisinopril [Zestril] 20 mg PO DAILY 08/25/17 carvedilol 6.25 mg tablet 6.25 mg PO BID #180 tab 10/11/18 Aspirin E.C. [Ecotrin] 81 mg PO DAILY@0800 11/17/18 Latanoprost 1 drp EACH EYE QHS 11/17/18 Warfarin Sodium 6 mg PO SUTUTHSA 11/17/18 Colestipol Tablet [Colestid Tablet] 1 gm PO BID 12/02/18 Fenofibrate Nanocrystallized 145 mg PO DAILY 12/02/18 [Tricor] Insulin NPH Human Isophane 32 units SQ BID 12/02/18 [Humulin N Vial] Ranolazine [Ranexa] 1,000 mg PO BID 12/02/18 Furosemide [Lasix] 40 mg PO BID #60 tab 12/06/18 Nitroglycerin (INPATIENT USE) 0.4 mg SUBLINGUAL Q5M PRN #1 bottle 12/06/18 [Nitrostat] spironolactone 25 mg tablet 25 mg PO DAILY #90 tab 12/16/18 amiodarone 200 mg tablet 200 mg PO DAILY #90 tab 01/06/19 trazodone 50 mg tablet 50 mg PO QHS tab 01/28/19 pantoprazole 40 mg tablet,delayed 40 mg PO DAILY #90 tab 04/27/19 release isosorbide mononitrate 60 mg 60 mg PO DAILY #90 tab 05/10/19 tablet,extended release 24 hr rosuvastatin 40 mg tablet 40 mg PO QHS #90 tab 06/27/19 Ropinirole HCl [Requip] 0.5 mg PO DAILY 09/05/19 Warfarin Sodium [Jantoven] 3 mg PO MOWEFR 09/05/19 Surgical History: Surgical History (Last Reviewed 01/28/19 @ 09:[address] Johan Perry MD) History of coronary artery stent placement (Chronic) Onset Date: 12/15/14 Z95.5 DBT-Uuwhd-RO0; PCI-Cutting Balloon Angioplasty of ISR-ostium of prox OM1 11/22/02; PCI-stent to proximal OM1 01/2008; PCI- [id number]-PWR-[id number] OM1 w/ 2.5 x 12 mm Promus Premier 12/15/14 History of implantable cardiac defibrillator (ICD) (Chronic) Onset Date: 11/19/17 11/23/2002, Generator change 2017 H/O colonoscopy with polypectomy Onset Date: 11/2017 Z98.890, Z86.010 History of detached retina repair Z98.890, Z86.69 torn History of electrophysiologic study Onset Date: 11/23/02 Z98.890 History of left heart catheterization Onset Date: 12/06/18 Z98.890 FFR of LAD, D1, LCx 05/30/2016 History of radiofrequency ablation procedure for cardiac arrhythmia Onset Date: 07/01/11 Z98.890 Surgical History: - Psychiatric History: No pertinent psych hx Smoking Status: Former smoker - *Family History Maternal Family History: Family History (Last Reviewed 01/28/19 @ 09:[address] Johan Perry MD) Father Prostate cancer Mother CVA (cerebral vascular accident) Sister Congestive heart failure Diabetes Hypertension Hyperlipidemia Atrial fibrillation CAD (coronary artery disease) Cardiac defibrillator in situ Sister Breast cancer Sister Breast cancer Brother CAD (coronary artery disease) Myocardial infarction Diabetes Brother Diabetes Brother COPD (chronic obstructive pulmonary disease) Sister Alive and well History Items: Stroke - CVA, age 80. Paternal Family History: Family History (Last Reviewed 01/28/19 @ 09:[address] Johan Perry MD) Father Prostate cancer Mother CVA (cerebral vascular accident) Sister Congestive heart failure Diabetes Hypertension Hyperlipidemia Atrial fibrillation CAD (coronary artery disease) Cardiac defibrillator in situ Sister Breast cancer Sister Breast cancer Brother CAD (coronary artery disease) Myocardial infarction Diabetes Brother Diabetes Brother COPD (chronic obstructive pulmonary disease) Sister Alive and well History Items: Cancer - Prostate CA, 78 y/o. Sibling Family History: Family History (Last Reviewed 01/28/19 @ 09:[address] Johan Perry MD) Father Prostate cancer Mother CVA (cerebral vascular accident) Sister Congestive heart failure Diabetes Hypertension Hyperlipidemia Atrial fibrillation CAD (coronary artery disease) Cardiac defibrillator in situ Sister Breast cancer Sister Breast cancer Brother CAD (coronary artery disease) Myocardial infarction Diabetes Brother Diabetes Brother COPD (chronic obstructive pulmonary disease) Sister Alive and well History Items: Diabetes Review of Systems Constitutional: Denies: Chills, Fever, Malaise, Weakness, Weight Change Eyes: Denies: Blurred vision HEENT: Denies: Head Aches, Sinus Congestion, Sinus Drainage Cardiovascular: Reports: Edema, Orthopnea, Paroxysmal Noc. Dyspnea. Denies: Chest Pain, Heaviness, Light Headedness, Palpitations, Syncope Respiratory: Reports: Shortness of Breath, Shortness of breath at rest, Shortness of breath upon exertion. Denies: Cough, Sputum production, Wheezing Gastrointestinal: Denies: Abdominal Pain, Nausea, Vomiting Genitourinary: Denies: Dysuria Musculoskeletal: Denies: Joint Pain, Joint Tenderness Skin: Denies: Rash, Wounds Neurological: Denies: Numbness, Tingling, Focal weakness Psychiatric: Denies: Anxiety, Depression, Homicidal Ideations, Suicidal Ideations Hematologic/ Lymphatic: Denies: Easy Bruising, Easy Bleeding VTE Information - Inpt Only VTE Present on Admission: No VTE Pharm Prophylaxis ordered?: Yes - Physical Exam Vitals/I&O's: Vital Signs Temp Pulse Resp BP Pulse Ox 98.4 F 57 L 15 137/83 H 97 09/05/19 18:00 09/05/19 18:00 09/05/19 18:00 09/05/19 18:00 09/05/19 18:00 Oxygen Delivery Method Room Air Weight: 260 lb Body Mass Index (BMI) 39.5 Finger Stick Blood Glucose 180 General: Alert, Oriented x3, Cooperative, No apparent distress HEENT: Atraumatic, PERRLA, EOMI, Normocephalic Oral: Moist Mucosa Neck: Supple, No JVD, Negative Carotid Bruits Lungs: - - diminished breath sounds bibasally, no wheezes or crackles. on room air. Cardiovascular: Regular rate, Regular Rhythm, Normal S1, Normal S2, No murmurs Abdomen: Bowel Sounds Present, Soft, Non Tender, Non-Distended, No Hepato- splenomegaly Extremities: No clubbing, No cyanosis, No edema, Capillary Refill Less than 3 Seconds Skin: - - stasis dermatitis of RLE, with erythema and differential warmth, and superficial ulcerations on RLE. Erythema extends from ankle to just below knee. Musculoskeletal: No Tenderness to Palpation of Joints or Extremities Neurological: Cranial nerves II-XII grossly intact, Neuro grossly intact, Motor Exam 5/5 strength throughout Psych/Mental Status: Normal Affect, Appropriate, Alert and oriented to time, place, person, mood and affect Laboratory Results 09/05/19 16:35: WBC 7.2, RBC 4.28 L, Hgb 12.7 L, Hct 39.1 L, MCV 91.4, MCH 29.7, MCHC 32.5, RDW Std Deviation 45.8 H, RDW Coeff of [place] 13.7, Plt Count 168, MPV 9.8, Immature Gran % (Auto) 1.000 H, Neut % (Auto) 73.1 H, Lymph % (Auto) 14.9 L , Banner % (Auto) 7.5, Eos % (Auto) 2.9, Baso % (Auto) 0.6, Absolute Neuts (auto) 5.2, Absolute Lymphs (auto) 1.07, Nucleated RBC % 0 09/05/19 16:35: PT 24.5 H, INR 2.3 09/05/19 16:35: Sodium 140, Potassium 4.2, Chloride 104, Carbon Dioxide 29.0, Anion Gap 7, BUN 33 H, Creatinine 1.35 H, Estim Creat Clear Calc 47.15, Est GFR (MDRD) Af Amer 67, Est GFR (MDRD) Non-Af 55 L, BUN/Creatinine Ratio 24.4 H, Glucose 86, Calcium 8.8, Troponin I < 0.015 09/05/19 16:35: B-Natriuretic Peptide Pending Diagnostic Data Chest X-Ray 09/05/19 16:45 IMPRESSION: No visualized acute process Electronically Signed: Fahad Evans MD at 17:30 EDT , Service support , Assessment/Plan All Active Problems (Last Reviewed 01/28/19 @ 09:[address] Johan Perry MD) History of congestive heart failure (Acute) 73 y/o admitted with a complaint of shortness of breath 1. Acute on chronic HF with preserved EF * Shortness of breath is however been persistent for quite a while. * Last echo done in November 2018 showed moderately dilated left ventricle with mild concentric left ventricular hypertrophy and estimated EF of 45%. Stage I diastolic dysfunction with no regional wall motion abnormalities noted. Moderately dilated right ventricle with ICD pacer leads identified within the right ventricle with RVSP of 27 mmHg. * Admit to PCU with telemetry. * Diuresed with IV Lasix 40 mg twice daily. Intake and output chart. Fluid restriction to thousand 500 cc daily. * Order 2D echo. Cycle troponins. * Give oxygen as needed and titrate to maintain saturation above 90%. * BNP came back at only 68; symptoms clinically fit the picture of heart failure, though BNP is not elevated. It is too low to fit Heart failure, even if corrected for his obesity. Discussed with Dr Perry; it is doubtful patient's symptoms are due to progressive CAD, as he had a cardiac cath on 12/14/2018 which showed stable coronary artery disease with patent left anterior descending artery and moderate disease noted in the circumflex artery with a totally occluded RCA. * Since patient is on amiodarone, per discussion with cardiology symptoms may be related to lung disease from amiodarone. We will therefore get a CTA of the chest and depending on results, consult pulmonology. * 2. Cellulitis of the right lower extremity * Since he had a bleb which ruptured and he also has severe stasis dermatitis with superficial ulcerations. * Will give IV cefazolin. * Duplex of right lower extremity was negative for PE. Will consult wound care. * 3. CAD status post stents. * Has stents to the obtuse marginal arteries. * On aspirin and Plavix. Also on lisinopril and rosuvastatin as well as imdur * 4. Type 2 diabetes mellitus * On insulin NPH 32 units twice daily. Also on Humalog 20 units 3 times daily. Insulin sliding scale. Accu-Cheks AC at bedtime. * 5. Nonsustained V. tach: Has ICD in place. 6. Paroxysmal A. fib: On amiodarone and carvedilol. On Coumadin. INR is 2.3 7. Hyperlipidemia: on statin and fenofibrate History of DVT: On Coumadin. DVT prophylaxis: On Coumadin. CODE STATUS: Full code * Patient counseled extensively about different types of CODE STATUS including full code, DNR CCA and DNR CCA. Patient elects to be full code. * Total elig-rn-eskg time 16 minutes. Inpatient E&M: 54087 Init Hosp L3 Procedures: 99660 Advncd Care Plan 30 Min
--- NOTE | 2019-09-05 18:13 | ED.RN ---
UNABLE TO OBTAIN SECOND BLOOD CULTURE. ATB INFUSING.
[2019-09-05 18:24] LABS: BNP,B-Type NATRIURETIC PEPTIDE 68.4 pg/mL (0-100)
--- NOTE | 2019-09-05 20:15 | CT_ITS ---
STUDY: CTA CHEST REASON FOR EXAM: Male, 73 years old. SOB/LOWER EXTREMITY SWELLING. Hx of CHF, NM, DVT, diabetes, ICD and heart stents RADIATION DOSAGE (If Supplied By Facility): CTDIvol = ( 15.04 ) mGy, DLP = ( 575.47 ) mGycm TECHNIQUE: The examination was performed with the intravenous administration of Isovue 370 100ml. Post-processing of the angiographic images was performed, with multiplanar reformation and 3D reconstruction. Individualized dose optimization techniques were used for this CT. COMPARISON: CT of the abdomen and pelvis dated August 25, 2017 FINDINGS: Normal enhancement of the main pulmonary artery and right and left pulmonary arteries. Normal enhancement of the bilateral peripheral pulmonary arteries. There is no demonstrated pulmonary embolism. There is atherosclerotic calcification of the aortic arch and descending thoracic aorta. There is no demonstrated aortic dissection. There are calcifications of the coronary arteries. There is a cardiac pacer device in place. Normal mediastinum. Normal hilar regions. Normal visualized trachea and bronchi. The lungs are well expanded. Normal pulmonary parenchyma. Normal pleura. There are degenerative changes of thoracic spine. The limited images of the upper abdomen demonstrate peripheral calcifications of the abdominal aorta. CT/CTA Chest W/WO Contrast IMPRESSION: No demonstrated pulmonary embolism or arterial dissection. No acute cardiopulmonary process. Atherosclerosis. Electronically Signed: Linda Plata MD at 23:11 EDT Tel , Service support ,
[2019-09-05] MEDS: Cefazolin 1 GM/50 ML BAG IV (22:59)
[2019-09-05] MEDS: Atorvastatin Calcium 80 MG Tablet PO (23:00)
[2019-09-05] MEDS: Carvedilol 6.25 MG Tablet PO (23:00)
[2019-09-05] MEDS: traZODone 50 MG Tablet PO (23:02)
[2019-09-05] MEDS: Ranolazine 500 MG Tablet 1000 MG PO (23:02)
[2019-09-05] MEDS: Latanoprost 0.005% 1 Bottle 1 DRP EACH EYE (23:08)
[2019-09-05] MEDS: Insulin Lispro 100 UNIT/ML INSULN.PEN SC (23:10)
[2019-09-05 23:25] LABS: Bedside Glucose 160 mg/dL (70-110)
[2019-09-06] VITALS (15 sets, daily range): BP systolic 99–122; BP diastolic 46–79; PULSE 55–78; RESP 16–24; TEMP 36.3–36.7; O2SAT 94–99
[2019-09-06] MEDS: 0.9% Saline Lock 10 ML Syringe IV ×7 (02:47→22:50)
[2019-09-06] MEDS: Ketorolac 15 MG/ML Vial IV (03:07)
[2019-09-06] MEDS: Cefazolin 1 GM/50 ML BAG IV ×3 (05:28→22:51)
--- NOTE | 2019-09-06 05:55 | ECHOD_ITS ---
Version 2 Reason For Study: CHF Procedure This was a 2D Doppler, Color Flow transthoracic echocardiogram. Exam performed portable in patient room. Left Ventricle Normal LV size. The estimated ejection fraction is 47 %. Paced septal motion. There is mild global hypokinesis of the left ventricle. Infero-Basal: Severely Hypokinetic. Posterior-Basal: Akinetic. There are regional wall motion abnormalities as specified. Right Ventricle Normal RV size. ICD or pacer leads identified within the right ventricle. Normal systolic function. Atria Normal left atrium. Normal right atrium. Mitral Valve Equivocal mitral valve prolapse. Tricuspid Valve Normal tricuspid valve. Aortic Valve Trisinus/trileaflet aortic valve. Mild focal aortic valve calcification. Pulmonic Valve Normal pulmonic valve. Great Vessels Normal aortic root. The pulmonary artery is normal size. Normal inferior vena cava. Pericardium/Pleural No pericardial effusion. MMode/2D Measurements & Calculations LVIDd: 5.8 cm IVSd: 0.97 cm Ao root diam: 3.7 cm LVIDs: 4.3 cm LVPWd: 1.0 cm RVDd: 3.6 cm FS: 25.8 % LAV(MOD-bp): 50.8 ml LVAd ap4: 40.0 cm2 SV(MOD-sp4): 86.6 ml LAV(MOD-bp) Indexed: 22.3 ml/m2 EDV(MOD-sp4): 156.9 ml LAV(MOD-sp2): 45.6 ml EDV(sp4-el): 160.5 ml LAV(MOD-sp4): 57.3 ml LVAs ap4: 23.8 cm2 ESV(MOD-sp4): 70.2 ml ESV(sp4-el): 69.4 ml EF(MOD-sp4): 55.2 % EF(sp4-el): 56.7 % SV(sp4-el): 91.1 ml LA A4 area: 18.5 cm2 LA dimension(2D): 3.6 cm RA A4 area: 12.2 cm2 Doppler Measurements & Calculations MV E max kuldip: 71.6 cm/sec Lat Peak E' Kuldip: 9.1 cm/sec Med Peak E' Kuldip: 5.8 cm/sec MV A max kuldip: 78.5 cm/sec E/E' lat: 7.9 E/E' med: 12.4 MV E/A: 0.91 Ao V2 max: 150.0 cm/sec LV V1 max: 122.4 cm/sec PA V2 max: 112.9 cm/sec Ao max P.0 mmHg LV V1 max P.0 mmHg TR max kuldip: 234.5 cm/sec TR max P.0 mmHg Interpretation Summary Normal LV size. The estimated ejection fraction is 47 %. Paced septal motion. There is mild global hypokinesis of the left ventricle. ICD or pacer leads identified within the right ventricle. Posterior-Basal: Akinetic. Compared to prior study, there is no significant change. Ordering Physician: Geraldine Parisi Referring Physician: FEDERICO Keyes M.D. Performed By: Dalila Barbosa RDCS
[2019-09-06 06:33] LABS: Absolute Neutrophil Count 3.6 X10^3/uL (2.0-7.7); Basophil# 0.04 X10^3/uL; Basophil% 0.7 % (0-1); Eosinophil# 0.24 X10^3/uL; Eosinophils% 4.4 % (0-5); Hematocrit 37.3 % (40-54); Lymphocyte % 18.2 % (19-41); Mean Corp Hgb Conc 32.2 g/dL (32-36); Mean Corpuscular Hgb 29.6 pg (27.0-32.0); Mean Corpuscular Volume 91.9 fL (80-94); Mean Platelet Vol. 9.3 fl (6.2-12.0); Monocyte# 0.54 X10^3/uL; Monocyte% 9.8 % (0-10); NRBC Flagged by Analyzer 0 % (0-5); Neutrophil # 3.62 X10^3/uL (2.7-7.7); Neutrophil % 65.8 % (47-70); Platelet Count 146 K/mm3 (150-450); RBC Distribution Width CV 13.6 % (11.6-14.6); Red Blood Count 4.06 M/mm3 (4.6-6.2); White Blood Count 5.5 K/mm3 (4.4-11.0)
[2019-09-06 06:52] LABS: Anion Gap 6 (5-15); BUN 30 mg/dL (7-18); BUN/Creat Ratio 20.4 RATIO (10-20); Calcium,Total 8.3 mg/dL (8.5-10.1); Chloride 103 mmol/L (98-107); Creatinine, Serum 1.47 mg/dL (0.70-1.30); EST Glomerular Filtration Rate 50 mL/min (>60); Est Glom Filt Rate - Afr Amer 60 mL/min (>60); Glucose 161 mg/dL (74-106); Potassium 3.8 mmol/L (3.5-5.1); Sodium Level 138 mmol/L (136-145)
[2019-09-06] MEDS: Insulin Lispro 100 UNIT/ML INSULN.PEN SC ×4 (06:55→22:56)
[2019-09-06 07:01] LABS: Bedside Glucose 168 mg/dL (70-110)
[2019-09-06] MEDS: Insulin NPH Human 100 UNITS/ML PEN 32 UNITS SC ×2 (09:02→16:22)
[2019-09-06] MEDS: Amiodarone 200 MG Tablet PO (09:03)
[2019-09-06] MEDS: Pantoprazole Sodium 40 MG Tablet PO (09:03)
[2019-09-06] MEDS: Aspirin E.C. 81 MG Tablet PO (09:03)
[2019-09-06] MEDS: Carvedilol 6.25 MG Tablet PO ×2 (09:03→22:58)
[2019-09-06] MEDS: Ranolazine 500 MG Tablet 1000 MG PO ×2 (09:03→22:58)
[2019-09-06] MEDS: Furosemide 40 MG/4 ML Vial IV (09:04)
[2019-09-06] MEDS: Clopidogrel Bisulfate 75 MG Tablet PO (09:04)
[2019-09-06] MEDS: Isosorbide Mononitrate 60 MG Tablet PO (09:04)
[2019-09-06] MEDS: Pramipexole Di-HCl 0.25 MG Tablet PO (09:05)
[2019-09-06] MEDS: Lisinopril 20 MG Tablet PO (09:05)
[2019-09-06] MEDS: Fenofibrate 145 MG Tablet PO (09:05)
[2019-09-06] MEDS: Spironolactone 25 MG Tablet PO (09:06)
[2019-09-06 09:56] LABS: Bedside Glucose 168 mg/dL (70-110)
[2019-09-06 11:01] LABS: Bedside Glucose 252 mg/dL (70-110)
--- NOTE | 2019-09-06 11:50 | CASEMGMT ---
DIANA HENRY assessment: Face to Face with patient for initial transition planning/care coordination assessment. RN CARL introduced self and role at [facility], pt voices understanding and consents to assessment at this time. Pt is sitting up in chair in no distress at this time. Pt is A/Ox4 at this time and answers all questions appropriately at this time. Care providers, pharmacy, and demographics verified at this time. Presentation: SOB w/ talking/walking, extensive cardiac hx, occasional CP Admitting dx: SOB, CHF exac PCP: Stephy CABALLERO Specialists: rakan Merritt; sujatha Perry Preferred Pharmacy: [facility] Insurance: MCR A/B, [employer] Prescription Benefit: MCR A/B, [employer] Living Will/HPOA: Pt states has LW/HPOA and is aware that his HPOA is not on file at [facility] at this time. Pt states , Ila Devi, is HPOA. LNOK: Ila Devi, /HPOA; Genesis Collado, daughter Living Arrangements: Pt states lives with and daughter in 1 story home with a couple steps in and states no concerns at home at this time. Pt states is independent with ADL's but /daughter help, if needed. Transportation: Pt states drives self and states no transportation concerns at this time. DME/HHC: Pt states has the following DME: cane, walker, and cpap thru [employer]. Pt states no hx of HHC or SNF in the past. Pt is willing to have HHC, if needed at discharge. Pt states no concerns with going home at time of discharge. Pt is retired. Pt states does not smoke cigarettes or drink ETOH. Pt states no further concerns/needs at this time. CM to follow PT/OT evals and for any further discharge planning/needs. Advised pt to ask for CM if any further questions/concerns/needs arise, voices understanding. Pt Goal: [place] HENRY
--- NOTE | 2019-09-06 12:46 | PCM.PROGNOTE ---
<Becky José - Last Filed: 09/06/19 13:01> Subjective: Patient seen and examined. Reports continued shortness of breath. Denies chest pain. Patient reports lower extremity swelling with weeping of both legs. - Physical Exam Vitals/I&O's: Vital Signs Temp Pulse Resp BP Pulse Ox 97.4 F L 62 18 122/71 H 94 09/06/19 09:01 09/06/19 11:04 09/06/19 09:01 09/06/19 09:01 09/06/19 09:01 Oxygen Delivery Method Room Air Weight: 259 lb 4.218 oz Body Mass Index (BMI) 39.8 Finger Stick Blood Glucose 180 Intake and Output for Last 24 Hours 09/04/19 09/05/19 09/06/19 23:59 23:59 23:59 Intake Total 334 / 334 300 / 300 Output Total 1450 / 1450 700 / 700 Balance -1116 / -1116 -400 / -400 General: Alert, Oriented x3, Cooperative HEENT: Atraumatic, PERRLA, EOMI, Normocephalic Neck: Supple, No JVD, Negative Carotid Bruits Lungs: Clear to auscultation, Diminished Cardiovascular: Regular rate, No murmurs Abdomen: Bowel Sounds Present, Soft, Non Tender, Non-Distended, Obese Extremities: No clubbing, No cyanosis, No edema, Capillary Refill Less than 3 Seconds Skin: No rashes, No breakdown, - - Bilateral lower extremity venous stasis skin changes with right lower extremity ulcerations. Musculoskeletal: No Tenderness to Palpation of Joints or Extremities Neurological: Cranial nerves II-XII grossly intact, Neuro grossly intact Psych/Mental Status: Normal Affect, Appropriate Laboratory Results 09/05/19 16:35: WBC 7.2, RBC 4.28 L, Hgb 12.7 L, Hct 39.1 L, MCV 91.4, MCH 29.7, MCHC 32.5, RDW Std Deviation 45.8 H, RDW Coeff of Galo 13.7, Plt Count 168, MPV 9.8, Immature Gran % (Auto) 1.000 H, Neut % (Auto) 73.1 H, Lymph % (Auto) 14.9 L, Harding % (Auto) 7.5, Eos % (Auto) 2.9, Baso % (Auto) 0.6, Absolute Neuts (auto) 5.2, Absolute Lymphs (auto) 1.07, Nucleated RBC % 0 09/05/19 16:35: PT 24.5 H, INR 2.3 09/05/19 16:35: Sodium 140, Potassium 4.2, Chloride 104, Carbon Dioxide 29.0, Anion Gap 7, BUN 33 H, Creatinine 1.35 H, Estim Creat Clear Calc 47.15, Est GFR (MDRD) Af Amer 67, Est GFR (MDRD) Non-Af 55 L, BUN/Creatinine Ratio 24.4 H, Glucose 86, Calcium 8.8, Troponin I < 0.015 09/05/19 16:35: B-Natriuretic Peptide 68.4 09/05/19 19:39: Troponin I < 0.015 09/05/19 22:08: Troponin I < 0.015 09/05/19 22:58: POC Glucose 160 H 09/06/19 06:15: Sodium 138, Potassium 3.8, Chloride 103, Carbon Dioxide 29.0, Anion Gap 6, BUN 30 H, Creatinine 1.47 H, Estim Creat Clear Calc 43.30, Est GFR (MDRD) Af Amer 60, Est GFR (MDRD) Non-Af 50 L, BUN/Creatinine Ratio 20.4 H, Glucose 161 H, Calcium 8.3 L 09/06/19 06:15: WBC 5.5, RBC 4.06 L, Hgb 12.0 L, Hct 37.3 L, MCV 91.9, MCH 29.6, MCHC 32.2, RDW Std Deviation 46.0 H, RDW Coeff of Galo 13.6, Plt Count 146 L, MPV 9.3, Immature Gran % (Auto) 1.100 H, Neut % (Auto) 65.8, Lymph % (Auto) 18.2 L, Harding % (Auto) 9.8, Eos % (Auto) 4.4, Baso % (Auto) 0.7, Absolute Neuts (auto) 3.6, Absolute Lymphs (auto) 1.00, Nucleated RBC % 0 09/06/19 06:52: POC Glucose 168 H 09/06/19 08:58: POC Glucose 168 H 09/06/19 10:56: POC Glucose 252 H Current Medications Amiodarone HCl (Cordarone) 200 mg PO DAILY MELISSA Last Admin: 09/06/19 09:03 Dose: 200 mg Documented by: Aspirin (Ecotrin) 81 mg PO DAILY@0800 [facility] Last Admin: 09/06/19 09:03 Dose: 81 mg Documented by: Atorvastatin Calcium (Lipitor) 80 mg PO QHS [facility] Last Admin: 09/05/19 23:00 Dose: 80 mg Documented by: Carvedilol (Coreg) 6.25 mg PO BID [facility] Last Admin: 09/06/19 09:03 Dose: 6.25 mg Documented by: Clopidogrel Bisulfate (Plavix) 75 mg PO DAILY [facility] Last Admin: 09/06/19 09:04 Dose: 75 mg Documented by: Colestipol HCl (Colestid Tablet) 1 gm PO BID [facility] Last Admin: 09/06/19 09:04 Dose: 1 gm Documented by: Dextrose (D50w Syringe) 0 gm IV X1 PRN; Protocol PRN Reason: Hypoglycemia Fenofibrate (Tricor) 145 mg PO DAILY [facility] Last Admin: 09/06/19 09:05 Dose: 145 mg Documented by: Furosemide (Lasix) 40 mg IV BID@1000,1800 [facility] Last Admin: 09/06/19 09:04 Dose: 40 mg Documented by: Glucagon () 1 mg IM .X1 PRN PRN Reason: Hypoglycemia Cefazolin Sodium () 1 gm in 50 mls @ 100 mls/hr IV Q8 [facility] Last Infusion: 09/06/19 07:37 Dose: Infused Documented by: Insulin Human Lispro (Humalog Kwikpen (Bkc)) 0 unit SC ACHS [facility]; Protocol Last Admin: 09/06/19 10:57 Dose: 4 units Documented by: Insulin Human NPH (Humulin N (Bkc)) 32 units SC BIDCM [facility] Last Admin: 09/06/19 09:02 Dose: 32 units Documented by: Isosorbide Mononitrate (Imdur) 60 mg PO DAILY [facility] Last Admin: 09/06/19 09:04 Dose: 60 mg Documented by: Latanoprost (Xalatan Opthalmic) 1 drop EACH EYE QHS [facility] Last Admin: 09/05/19 23:08 Dose: 1 drop Documented by: Lisinopril (Zestril) 20 mg PO DAILY [facility] Last Admin: 09/06/19 09:05 Dose: 20 mg Documented by: Nitroglycerin (Nitrostat) 0.4 mg SUBLINGUAL Q5M PRN PRN Reason: Chest Pain Ondansetron HCl (Zofran) 4 mg IV Q8H PRN PRN PRN Reason: NAUSEA/VOMITING Pantoprazole Sodium (Protonix) 40 mg PO DAILY [facility] Last Admin: 09/06/19 09:03 Dose: 40 mg Documented by: Pramipexole Dihydrochloride (Mirapex) 0.25 mg PO DAILY [facility] Last Admin: 09/06/19 09:05 Dose: 0.25 mg Documented by: Ranolazine (Ranexa) 1,000 mg PO BID [facility] Last Admin: 09/06/19 09:03 Dose: 1,000 mg Documented by: Sodium Chloride () 10 - 40 ml IV UD PRN PRN Reason: SALINE FLUSH Last Admin: 09/06/19 09:04 Dose: 10 ml Documented by: Spironolactone (Aldactone) 25 mg PO DAILY [facility] Last Admin: 09/06/19 09:06 Dose: 25 mg Documented by: Trazodone HCl (Desyrel) 50 mg PO QHS [facility] Last Admin: 09/05/19 23:02 Dose: 50 mg Documented by: Warfarin Sodium (Jantoven) 3 mg PO MoWeFr@1700 [facility] Warfarin Sodium (Coumadin (Pbkc)) 6 mg PO SuTuThSa@1700 [facility] Medical Necessity - Tobacco Use Smoking Status: Former smoker Tobacco Use: Cigars Assessment/Plan All Active Problems (Last Reviewed 01/28/19 @ 09:[address] Johan Perry MD) History of congestive heart failure (Acute) 1. Acute on chronic heart failure with preserved ejection fraction-chest CTA without PE. BNP normal however patient has significant lower extremity swelling. Echocardiogram demonstrates an EF of 47%. Continue IV Lasix. Strict I&O. Daily weight. Terry wraps bilateral lower extremities. 2. Chronic venous stasis with stasis dermatitis and right lower extremity ulcerations-right lower extremity ultrasound negative for DVT. Wound care consulted. IV cefazolin. Culture right lower extremity ulcerations if drainage is present. 3. Left foot fracture? States he is following with Dr. Ramos. Soft cast in place. Partial weightbearing. PT/OT. Continue follow-up with podiatry. 4. CAD with history of stents-continue aspirin, Plavix, statin, isosorbide, lisinopril. Follows with Dr. Perry. 5. Type 2 diabetes [id number] with sliding scale insulin. Continue home insulin regimen. 6. History of nonsustained V. tach status post ICD placement 7. Paroxysmal atrial fibrillation-on amiodarone, carvedilol, Coumadin. 8. Hyperlipidemia-continue statin, fenofibrate. 9. GERD-continue PPI. 10. Chronic kidney disease stage III-at baseline, trend BMP. DVT prophylaxis-Coumadin This patient was seen by NICOL Russell under the supervision of Dr. Burton. <Feliberto Burton - Last Filed: 09/06/19 14:52> Subjective: Patient has chronic lower extremity swelling with seepage, blisters. Patient was admitted with shortness of breath. Patient also has left ankle injury couple weeks ago, being managed by Dr. Treviño. Patient also has history of polio most probably in left leg. - Physical Exam Vitals/I&O's: Vital Signs Temp Pulse Resp BP Pulse Ox 97.4 F L 61 18 122/71 H 94 09/06/19 13:02 09/06/19 13:02 09/06/19 13:02 09/06/19 13:02 09/06/19 13:02 Oxygen Flow Rate (L/min) 2 Oxygen Delivery Method Nasal Cannula Weight: 259 lb 4.218 oz Body Mass Index (BMI) 39.8 Finger Stick Blood Glucose 180 Intake and Output for Last 24 Hours 09/04/19 09/05/19 09/06/19 23:59 23:59 23:59 Intake Total 334 / 334 300 / 300 Output Total 1450 / 1450 700 / 700 Balance -1116 / -1116 -400 / -400 General: Alert, Oriented x3, Cooperative HEENT: Atraumatic, PERRLA, EOMI, Normocephalic Neck: Supple, No JVD, Negative Carotid Bruits Lungs: Clear to auscultation, No rhonchi, No wheeze, No rales, Diminished Cardiovascular: Regular rate, Regular Rhythm, Normal S1, Normal S2, No murmurs Abdomen: Bowel Sounds Present, Soft, Non Tender, Non-Distended, Obese Extremities: Capillary Refill Less than 3 Seconds, Edema Skin: No rashes, No breakdown, - - Bilateral lower extremity venous stasis skin changes with right lower extremity ulcerations. Lower legs skin blister with seepage. Bilateral lower extremity lymphedema and venous hypertension Musculoskeletal: No Tenderness to Palpation of Joints or Extremities, Arthritic Changes Neurological: Cranial nerves II-XII grossly intact, Deep Tendon Reflexes 2+/4 and Symmetrical, Neuro grossly intact Psych/Mental Status: Normal Affect, Appropriate Laboratory Results 09/05/19 16:35: WBC 7.2, RBC 4.28 L, Hgb 12.7 L, Hct 39.1 L, MCV 91.4, MCH 29.7, MCHC 32.5, RDW Std Deviation 45.8 H, RDW Coeff of Galo 13.7, Plt Count 168, MPV 9.8, Immature Gran % (Auto) 1.000 H, Neut % (Auto) 73.1 H, Lymph % (Auto) 14.9 L, Harding % (Auto) 7.5, Eos % (Auto) 2.9, Baso % (Auto) 0.6, Absolute Neuts (auto) 5.2, Absolute Lymphs (auto) 1.07, Nucleated RBC % 0 09/05/19 16:35: PT 24.5 H, INR 2.3 09/05/19 16:35: Sodium 140, Potassium 4.2, Chloride 104, Carbon Dioxide 29.0, Anion Gap 7, BUN 33 H, Creatinine 1.35 H, Estim Creat Clear Calc 47.15, Est GFR (MDRD) Af Amer 67, Est GFR (MDRD) Non-Af 55 L, BUN/Creatinine Ratio 24.4 H, Glucose 86, Calcium 8.8, Troponin I < 0.015 09/05/19 16:35: B-Natriuretic Peptide 68.4 09/05/19 19:39: Troponin I < 0.015 09/05/19 22:08: Troponin I < 0.015 09/05/19 22:58: POC Glucose 160 H 09/06/19 06:15: Sodium 138, Potassium 3.8, Chloride 103, Carbon Dioxide 29.0, Anion Gap 6, BUN 30 H, Creatinine 1.47 H, Estim Creat Clear Calc 43.30, Est GFR (MDRD) Af Amer 60, Est GFR (MDRD) Non-Af 50 L, BUN/Creatinine Ratio 20.4 H, Glucose 161 H, Calcium 8.3 L 09/06/19 06:15: WBC 5.5, RBC 4.06 L, Hgb 12.0 L, Hct 37.3 L, MCV 91.9, MCH 29.6, MCHC 32.2, RDW Std Deviation 46.0 H, RDW Coeff of Galo 13.6, Plt Count 146 L, MPV 9.3, Immature Gran % (Auto) 1.100 H, Neut % (Auto) 65.8, Lymph % (Auto) 18.2 L, Harding % (Auto) 9.8, Eos % (Auto) 4.4, Baso % (Auto) 0.7, Absolute Neuts (auto) 3.6, Absolute Lymphs (auto) 1.00, Nucleated RBC % 0 09/06/19 06:52: POC Glucose 168 H 09/06/19 08:58: POC Glucose 168 H 09/06/19 10:56: POC Glucose 252 H 09/06/19 13:35: S.aureus Protein A PCR Pending, MRSA (PCR) Pending Current Medications Amiodarone HCl (Cordarone) 200 mg PO DAILY [facility] Last Admin: 09/06/19 09:03 Dose: 200 mg Documented by: Aspirin (Ecotrin) 81 mg PO DAILY@0800 [facility] Last Admin: 09/06/19 09:03 Dose: 81 mg Documented by: Atorvastatin Calcium (Lipitor) 80 mg PO QHS [facility] Last Admin: 09/05/19 23:00 Dose: 80 mg Documented by: Carvedilol (Coreg) 6.25 mg PO BID [facility] Last Admin: 09/06/19 09:03 Dose: 6.25 mg Documented by: Clopidogrel Bisulfate (Plavix) 75 mg PO DAILY [facility] Last Admin: 09/06/19 09:04 Dose: 75 mg Documented by: Colestipol HCl (Colestid Tablet) 1 gm PO BID [facility] Last Admin: 09/06/19 09:04 Dose: 1 gm Documented by: Dextrose (D50w Syringe) 0 gm IV X1 PRN; Protocol PRN Reason: Hypoglycemia Fenofibrate (Tricor) 145 mg PO DAILY [facility] Last Admin: 09/06/19 09:05 Dose: 145 mg Documented by: Furosemide (Lasix) 40 mg IV BID@1000,1800 [facility] Last Admin: 09/06/19 09:04 Dose: 40 mg Documented by: Glucagon () 1 mg IM .X1 PRN PRN Reason: Hypoglycemia Cefazolin Sodium () 1 gm in 50 mls @ 100 mls/hr IV Q8 [facility] Last Admin: 09/06/19 13:48 Dose: 100 mls/hr Documented by: Insulin Human Lispro (Humalog Kwikpen (Bkc)) 0 unit SC ACHS [facility]; Protocol Last Admin: 09/06/19 10:57 Dose: 4 units Documented by: Insulin Human NPH (Humulin N (Bkc)) 32 units SC BIDCM [facility] Last Admin: 09/06/19 09:02 Dose: 32 units Documented by: Isosorbide Mononitrate (Imdur) 60 mg PO DAILY [facility] Last Admin: 09/06/19 09:04 Dose: 60 mg Documented by: Latanoprost (Xalatan Opthalmic) 1 drop EACH EYE QHS [facility] Last Admin: 09/05/19 23:08 Dose: 1 drop Documented by: Lisinopril (Zestril) 20 mg PO DAILY [facility] Last Admin: 09/06/19 09:05 Dose: 20 mg Documented by: Nitroglycerin (Nitrostat) 0.4 mg SUBLINGUAL Q5M PRN PRN Reason: Chest Pain Ondansetron HCl (Zofran) 4 mg IV Q8H PRN PRN PRN Reason: NAUSEA/VOMITING Last Admin: 09/06/19 12:58 Dose: 4 mg Documented by: Pantoprazole Sodium (Protonix) 40 mg PO DAILY [facility] Last Admin: 09/06/19 09:03 Dose: 40 mg Documented by: Pramipexole Dihydrochloride (Mirapex) 0.25 mg PO DAILY [facility] Last Admin: 09/06/19 09:05 Dose: 0.25 mg Documented by: Ranolazine (Ranexa) 1,000 mg PO BID [facility] Last Admin: 09/06/19 09:03 Dose: 1,000 mg Documented by: Sodium Chloride () 10 - 40 ml IV UD PRN PRN Reason: SALINE FLUSH Last Admin: 09/06/19 12:58 Dose: 10 ml Documented by: Spironolactone (Aldactone) 25 mg PO DAILY [facility] Last Admin: 09/06/19 09:06 Dose: 25 mg Documented by: Trazodone HCl (Desyrel) 50 mg PO QHS [facility] Last Admin: 09/05/19 23:02 Dose: 50 mg Documented by: Warfarin Sodium (Jantoven) 3 mg PO MoWeFr@1700 [facility] Warfarin Sodium (Coumadin (Pbkc)) 6 mg PO SuTuThSa@1700 [facility] Assessment/Plan This patient was seen in conjunction with [employer] PROCESSING CENTRIFU[employer] OPERATORBecky. I have independently interviewed and examined the patient and reviewed pertinent history, examination findings, laboratory and plan of management. I have reviewed the note and agree with the documented findings with the few additional points. In brief, patient is admitted for progressive worsening of shortness of breath for several weeks along with bilateral lower extremity edema, venous stasis, lymphedema with blister consistent with CHF exacerbation. Last echo in November 2018 shows moderately dilated LV, mild concentric LVH with EF 45%, stage I diastolic dysfunction. Moderately dilated RV with RVSP 27 mg. On Lasix 40 mg IV twice daily with CHF core measures. Echo done on 09/06/2019 shows EF 47% with mild global hypokinesis of LV with posterobasal akinetic wall. Right lower extremity cellulitis with blister, superficial ulceration with seepage and venous hypertension/lymphedema: Wound care nurse consult. On IV cefazolin. Duplex of lower extremity negative for DVT. Patient has possible suspected left foot fracture, soft cast in place. Patient follows Dr. Treviño and is consulted. Other comorbidities coronary artery status post stent, and obtuse marginal artery, type 2 diabetes mellitus, nonsustained V. tach status post AICD, paroxysmal A. fib and dyslipidemia. Patient on aspirin, Plavix, lisinopril, rosuvastatin and Imdur. Patient on amiodarone and carvedilol. Patient is on Coumadin INR 2.3. On a statin and fenofibrate. Patient also has history of DVT on Coumadin. I have discussed my assessment with Becky TELLO and orders have been reviewed. Total time of the visit including total time spent in counseling or coordination of care, (more than 50% of the total time, spent in obtaining medical information from nurses and other ancillary care providers), , review of labs and imaging is 30 minutes Inpatient E&M: [id number] [place] [id number]
[2019-09-06] MEDS: Ondansetron 4 MG/2 ML Vial IV ×2 (12:58→23:08)
--- NOTE | 2019-09-06 13:55 | NURSING ---
wound photo: right lower leg
--- NOTE | 2019-09-06 13:56 | NURSING ---
wound photo: right dorsal foot
[2019-09-06 16:30] LABS: Bedside Glucose 226 mg/dL (70-110)
[2019-09-06 16:49] LABS: M R Staph aureus DNA By PCR Negative (Negative); Probe Check PASS; Staph aureus DNA By PCR POSITIVE (Negative)
[2019-09-06] MEDS: Furosemide 20 MG/2 ML VIAL IV ×2 (18:45→20:29)
[2019-09-06] MEDS: Acetaminophen 325 MG Tablet 650 MG PO (22:50)
[2019-09-06] MEDS: traZODone 50 MG Tablet PO (22:56)
[2019-09-06] MEDS: Atorvastatin Calcium 80 MG Tablet PO (22:57)
[2019-09-06] MEDS: Latanoprost 0.005% 1 Bottle 1 DRP EACH EYE (22:58)
[2019-09-06 23:15] LABS: Bedside Glucose 233 mg/dL (70-110)
[2019-09-07] VITALS (11 sets, daily range): BP systolic 100–133; BP diastolic 55–81; PULSE 57–68; RESP 16–19; TEMP 36.4–36.7; O2SAT 94–100
[2019-09-07] MEDS: proCHLORPERazine 10 MG/2 ML Vial 5 MG IV (03:26)
[2019-09-07] MEDS: 0.9% Saline Lock 10 ML Syringe IV ×4 (03:27→18:21)
[2019-09-07] MEDS: Cefazolin 1 GM/50 ML BAG IV ×3 (05:19→21:32)
[2019-09-07 06:12] LABS: Anion Gap 8 (5-15); BUN 37 mg/dL (7-18); Calcium,Total 8.4 mg/dL (8.5-10.1); Chloride 104 mmol/L (98-107); Creatinine, Serum 1.48 mg/dL (0.70-1.30); EST Glomerular Filtration Rate 49 mL/min (>60); Est Glom Filt Rate - Afr Amer 60 mL/min (>60); Estimated Creatinine Clearance 43.01 ml/min; Glucose 120 mg/dL (74-106); Sodium Level 141 mmol/L (136-145)
--- NOTE | 2019-09-07 06:15 | RAD_ITS ---
STUDY: X-RAY - LEFT FOOT CLINICAL: Male, 73 years old. 5TH METATARSAL FX TECHNIQUE: 3 view(s) of the foot. COMPARISON: None. FINDINGS: Normal talus, calcaneus, and tarsal bones. Normal visualized subtalar, talonavicular, calcaneocuboid, tarsal and tarsometatarsal articulations. There is a fracture of the base of the fifth metatarsal bone. Remainder of the metatarsal bones are intact. Normal metatarsophalangeal joint of the great toe. Normal tibial and fibular sesamoid bones. Normal interphalangeal joint of the great toe. Normal phalanges of the great toe. Normal second through fifth metatarsophalangeal joints. Normal interphalangeal joints and phalanges of the lesser toes. The soft tissue structures are unremarkable. RAD/Foot min 3 Views IMPRESSION: Fracture of the base of the fifth metatarsal bone. Electronically Signed: Ervin Tiwari MD at 7:17 EDT , Service support ,
[2019-09-07 06:55] LABS: Bedside Glucose 148 mg/dL (70-110)
--- NOTE | 2019-09-07 07:39 | CON.PCM_ITS ---
Problem List (1) Ulcer of right lower extremity with fat layer exposed Status: Chronic (2) Localized edema Status: Chronic (3) Nondisp fracture of fifth left metatarsal bone with routine healing Status: Acute Qualifiers: Fracture type: closed Qualified Code(s): S92.355D - Nondisplaced fracture of fifth metatarsal bone, left foot, subsequent encounter for fracture with routine healing (4) Walking difficulty due to ankle and foot Status: Chronic Reason for Consult Date of Consultation: 09/07/19 Reason for Consultation: Left fifth metatarsal fracture. Right leg ulcer History of Present Illness: The patient is a 73 year old M seen bedside this morning for left fifth metatarsal fracture with an onset of approximately 1 month ago. He has been treated in the outpatient setting with immobilization with partial weightbearing, soft cast, and rest with Dr. Merritt. His pain is rated as 5/10. He admits he has difficulty keeping weight off of his limb. He was also seen for a right leg ulcer. He reports this also has a 5/10 aching pain. The onset of weeping was within the past 1-2 weeks. He denies trauma. He relates he had recent increase in leg swelling. He has been admitted for acute on chronic CHF. Past Medical History Past Medical History (Chronic Problems): Chronic Problems (Last Reviewed 01/28/19 @ 09:[address] Johan Perry MD) Ulcer of right lower extremity with fat layer exposed (Chronic) Localized edema (Chronic) Walking difficulty due to ankle and foot (Chronic) Atherosclerotic heart disease of [place] coronary artery with other forms of angina pectoris (Chronic) NOW-Lkhwl-Tfm Cx; PCI-Cutting Balloon Angioplasty of ISR-ostium of prox lat CX 11/22/02; PCI-stent to proximal OM 01/2008; PCI- [id number] OM 12/15/13;LHC w/FFR of LAD, D1, LCx 05/30/2016 Old inferior wall myocardial infarction (Chronic) Ischemic cardiomyopathy (Chronic) History of coronary artery stent placement (Chronic 12/15/14) [id number]; PCI-Cutting Balloon Angioplasty of ISR-ostium of prox OM1 11/22/02; PCI-stent to proximal OM1 01/2008; PCI- [id number] OM1 w/ 2.5 x 12 mm Promus Premier 12/15/14 History of implantable cardiac defibrillator (ICD) (Chronic 11/19/17) 11/23/2002, Generator change 2017 Acute systolic (congestive) heart failure (Chronic) Paroxysmal atrial flutter (Chronic) Nonsustained ventricular tachycardia (Chronic) Hyperlipidemia (Chronic) Medical History: Medical History (Last Reviewed 01/28/19 @ 09:[address] Johan Perry MD) Atherosclerotic heart disease of [place] coronary artery with other forms of angina pectoris (Chronic) I25.118 CKB-Mtqzp-Flv Cx; PCI-Cutting Balloon Angioplasty of ISR-ostium of prox lat CX 11/22/02; PCI-stent to proximal OM 01/2008; PCI- [id number]-[id number] OM 12/15/13;LHC w/FFR of LAD, D1, LCx 05/30/2016 Old inferior wall myocardial infarction (Chronic) I25.2 Ischemic cardiomyopathy (Chronic) I25.5 Acute systolic (congestive) heart failure (Chronic) I50.21 Paroxysmal atrial flutter (Chronic) I48.92 Nonsustained ventricular tachycardia (Chronic) I47.2 Hyperlipidemia (Chronic) E78.5 Diabetes mellitus type 2 in obese E11.69, E66.9 History of non-ST elevation myocardial infarction (NSTEMI) Onset Date: 11/05/16 I25.2 Obesity E66.9 Type 2 diabetes mellitus E11.9 History of deep vein thrombosis (DVT) of lower extremity Z86.718 Nonrheumatic tricuspid (valve) insufficiency (Inactive) I36.1 Allergies ceftriaxone sodium [From Rocephin] Allergy (Verified 09/05/19 15:45) Rash milk Adverse Reaction (Verified 09/05/19 15:45) Diarrhea morphine Adverse Reaction (Verified 09/05/19 15:45) hallucinations Home Medications: Ambulatory Orders Medication Instructions Recorded Clopidogrel Bisulfate [Plavix] 75 mg PO DAILY 12/04/14 Insulin Lispro [Humalog] 20 unit SQ TIDCM 08/25/17 Lisinopril [Zestril] 20 mg PO DAILY 08/25/17 carvedilol 6.25 mg tablet 6.25 mg PO BID #180 tab 10/11/18 Aspirin E.C. [Ecotrin] 81 mg PO DAILY@0800 11/17/18 Latanoprost 1 drp EACH EYE QHS 11/17/18 Warfarin Sodium 6 mg PO SUTUTHSA 11/17/18 Colestipol Tablet [Colestid Tablet] 1 gm PO BID 12/02/18 Fenofibrate Nanocrystallized 145 mg PO DAILY 12/02/18 [Tricor] Insulin NPH Human Isophane 32 units SQ BID 12/02/18 [Humulin N Vial] Ranolazine [Ranexa] 1,000 mg PO BID 12/02/18 Furosemide [Lasix] 40 mg PO BID #60 tab 12/06/18 Nitroglycerin (INPATIENT USE) 0.4 mg SUBLINGUAL Q5M PRN #1 bottle 12/06/18 [Nitrostat] spironolactone 25 mg tablet 25 mg PO DAILY #90 tab 12/16/18 amiodarone 200 mg tablet 200 mg PO DAILY #90 tab 01/06/19 trazodone 50 mg tablet 50 mg PO QHS tab 01/28/19 pantoprazole 40 mg tablet,delayed 40 mg PO DAILY #90 tab 04/27/19 release isosorbide mononitrate 60 mg 60 mg PO DAILY #90 tab 05/10/19 tablet,extended release 24 hr rosuvastatin 40 mg tablet 40 mg PO QHS #90 tab 06/27/19 Ropinirole HCl [Requip] 0.5 mg PO DAILY 09/05/19 Warfarin Sodium [Jantoven] 3 mg PO MOWEFR 09/05/19 Surgical History: Surgical History (Last Reviewed 01/28/19 @ 09:[address] Johan Perry MD) History of coronary artery stent placement (Chronic) Onset Date: 12/15/14 Z95.5 [id number]; PCI-Cutting Balloon Angioplasty of ISR-ostium of prox OM1 11/22/02; PCI-stent to proximal OM1 01/2008; PCI- [id number]-EIK-[id number] OM1 w/ 2.5 x 12 mm Promus Premier 12/15/14 History of implantable cardiac defibrillator (ICD) (Chronic) Onset Date: 11/19/17 11/23/2002, Generator change 2017 H/O colonoscopy with polypectomy Onset Date: 11/2017 Z98.890, Z86.010 History of detached retina repair Z98.890, Z86.69 torn History of electrophysiologic study Onset Date: 11/23/02 Z98.890 History of left heart catheterization Onset Date: 12/06/18 Z98.890 FFR of LAD, D1, LCx 05/30/2016 History of radiofrequency ablation procedure for cardiac arrhythmia Onset Date: 07/01/11 Z98.890 Surgical History: - Psychiatric History: No pertinent psych hx Smoking Status: Former smoker Tobacco Use: Cigars - *Family History Maternal Family History: Family History (Last Reviewed 01/28/19 @ 09:[address] Johan Perry MD) Father Prostate cancer Mother CVA (cerebral vascular accident) Sister Congestive heart failure Diabetes Hypertension Hyperlipidemia Atrial fibrillation CAD (coronary artery disease) Cardiac defibrillator in situ Sister Breast cancer Sister Breast cancer Brother CAD (coronary artery disease) Myocardial infarction Diabetes Brother Diabetes Brother COPD (chronic obstructive pulmonary disease) Sister Alive and well History Items: Stroke - CVA, age 80. Paternal Family History: Family History (Last Reviewed 01/28/19 @ 09:[address] Johan Perry MD) Father Prostate cancer Mother CVA (cerebral vascular accident) Sister Congestive heart failure Diabetes Hypertension Hyperlipidemia Atrial fibrillation CAD (coronary artery disease) Cardiac defibrillator in situ Sister Breast cancer Sister Breast cancer Brother CAD (coronary artery disease) Myocardial infarction Diabetes Brother Diabetes Brother COPD (chronic obstructive pulmonary disease) Sister Alive and well History Items: Cancer - Prostate CA, 78 y/o. Sibling Family History: Family History (Last Reviewed 01/28/19 @ 09:[address] Johan Perry MD) Father Prostate cancer Mother CVA (cerebral vascular accident) Sister Congestive heart failure Diabetes Hypertension Hyperlipidemia Atrial fibrillation CAD (coronary artery disease) Cardiac defibrillator in situ Sister Breast cancer Sister Breast cancer Brother CAD (coronary artery disease) Myocardial infarction Diabetes Brother Diabetes Brother COPD (chronic obstructive pulmonary disease) Sister Alive and well History Items: Diabetes Review of Systems Constitutional: Denies: Chills, Fever Cardiovascular: Denies: Claudication Respiratory: Reports: Shortness of Breath Gastrointestinal: Denies: Nausea Musculoskeletal: Reports: Leg Pain. Denies: Foot Pain Skin: Reports: Skin Changes, Wounds Neurological: Reports: Balance problems, Incoordination Patient Problems: Active and Suspected Problems (Last Reviewed 01/28/19 @ 09:[address] Johan Perry MD) Nondisp fracture of fifth left metatarsal bone with routine healing (Acute) - Physical Exam Vitals/I&O's: Vital Signs Temp Pulse Resp BP Pulse Ox 97.6 F L 57 L 16 117/73 98 09/07/19 03:00 09/07/19 06:56 09/07/19 03:00 09/07/19 03:00 09/07/19 03:00 Oxygen Flow Rate (L/min) 2 Oxygen Delivery Method Nasal Cannula Weight: 118 kg Body Mass Index (BMI) 39.8 Finger Stick Blood Glucose 180 Intake and Output for Last 24 Hours 09/05/19 09/06/19 09/07/19 23:59 23:59 23:59 Intake Total 334 / 334 1030 / 1030 50 / 50 Output Total 1450 / 1450 1925 / 1925 150 / 150 Balance -1116 / -1116 -895 / -895 -100 / -100 General: Alert, Oriented x3, Cooperative HEENT: Atraumatic Extremities: No cyanosis, Capillary Refill Less than 3 Seconds, No Calf Tenderness - negative menezes signs bilateral, Diminished Peripheral Pulses, Edema - bilateral lower extremities Skin: Ulcer/ Wound - there is 1.8 x 2.0 x 0.1 cm anterior central leg skin discontinuity with granular and fibrous base. There is distal satellite lesion measures 0.7 x 0.5 x 0.1 cm on leg and dorsal foot that measures 1.2 x 0.8 x 0.1 cm with granular base. there is peripheral leg hyperpigmentation, skin atrophy and lack of hair. no purulence or odor is noted. discoloration extends to proximal 2/3 of the leg. there is no crepitus, fluctuance, or bogginess on palpation noted., - - no ulcer, no ecchymosis, no erythema, left lower extremity Musculoskeletal: - - pain to palpate fifth metatarsal fracture site and not proximal to peroneal tendon. no midfoot palpation pain noted. compartment left lower extremity remains soft Neurological: - Psych/Mental Status: Normal Affect, Appropriate Laboratory Results 09/06/19 08:58: POC Glucose 168 H 09/06/19 10:56: POC Glucose 252 H 09/06/19 13:35: S.aureus Protein A PCR POSITIVE H, MRSA (PCR) Negative 09/06/19 16:17: POC Glucose 226 H 09/06/19 22:49: POC Glucose 233 H 09/07/19 05:20: Sodium 141, Potassium 4.0, Chloride 104, Carbon Dioxide 29.0, Anion Gap 8, BUN 37 H, Creatinine 1.48 H, Estim Creat Clear Calc 43.01, Est GFR (MDRD) Af Amer 60, Est GFR (MDRD) Non-Af 49 L, BUN/Creatinine Ratio 25.0 H, Glucose 120 H, Calcium 8.4 L 09/07/19 06:51: POC Glucose 148 H Current Medications Acetaminophen (Tylenol) 650 mg PO Q6H PRN PRN PRN Reason: Pain Score 1-01/06 Last Admin: 09/06/19 22:50 Dose: 650 mg Documented by: Amiodarone HCl (Cordarone) 200 mg PO DAILY [facility] Last Admin: 09/06/19 09:03 Dose: 200 mg Documented by: Aspirin (Ecotrin) 81 mg PO DAILY@0800 [facility] Last Admin: 09/06/19 09:03 Dose: 81 mg Documented by: Atorvastatin Calcium (Lipitor) 80 mg PO QHS [facility] Last Admin: 09/06/19 22:57 Dose: 80 mg Documented by: Carvedilol (Coreg) 6.25 mg PO BID [facility] Last Admin: 09/06/19 22:58 Dose: 6.25 mg Documented by: Clopidogrel Bisulfate (Plavix) 75 mg PO DAILY [facility] Last Admin: 09/06/19 09:04 Dose: 75 mg Documented by: Colestipol HCl (Colestid Tablet) 1 gm PO BID [facility] Last Admin: 09/06/19 22:53 Dose: 1 gm Documented by: Dextrose (D50w Syringe) 0 gm IV X1 PRN; Protocol PRN Reason: Hypoglycemia Fenofibrate (Tricor) 145 mg PO DAILY [facility] Last Admin: 09/06/19 09:05 Dose: 145 mg Documented by: Furosemide (Lasix) 40 mg IV BID@1000,1800 [facility] Last Admin: 09/06/19 17:45 Dose: Not Given Documented by: Glucagon () 1 mg IM .X1 PRN PRN Reason: Hypoglycemia Cefazolin Sodium () 1 gm in 50 mls @ 100 mls/hr IV Q8 [facility] Last Infusion: 09/07/19 05:49 Dose: Infused Documented by: Insulin Human Lispro (Humalog Kwjignapen (Bkc)) 0 unit SC ACHS [facility]; Protocol Last Admin: 09/07/19 06:56 Dose: Not Given Documented by: Insulin Human NPH (Humulin N ([facility])) [facility] Last Admin: 09/06/19 16:22 Dose: 32 units Documented by: Isosorbide Mononitrate (Imdur) 60 mg PO DAILY [facility] Last Admin: 09/06/19 09:04 Dose: 60 mg Documented by: Latanoprost (Xalatan Opthalmic) 1 drop EACH EYE QHS [facility] Last Admin: 09/06/19 22:58 Dose: 1 drop Documented by: Lisinopril (Zestril) 20 mg PO DAILY [facility] Last Admin: 09/06/19 09:05 Dose: 20 mg Documented by: Nitroglycerin (Nitrostat) 0.4 mg SUBLINGUAL Q5M PRN PRN Reason: Chest Pain Ondansetron HCl (Zofran) 4 mg IV Q8H PRN PRN PRN Reason: NAUSEA/VOMITING Last Admin: 09/06/19 23:08 Dose: 4 mg Documented by: Pantoprazole Sodium (Protonix) 40 mg PO DAILY [facility] Last Admin: 09/06/19 09:03 Dose: 40 mg Documented by: Pramipexole Dihydrochloride (Mirapex) 0.25 mg PO DAILY [facility] Last Admin: 09/06/19 09:05 Dose: 0.25 mg Documented by: Prochlorperazine Edisylate (Compazine Iv) 5 mg IV Q6H PRN PRN PRN Reason: NAUSEA/VOMITING Last Admin: 09/07/19 03:26 Dose: 5 mg Documented by: Ranolazine (Ranexa) 1,000 mg PO BID [facility] Last Admin: 09/06/19 22:58 Dose: 1,000 mg Documented by: Sodium Chloride () 10 - 40 ml IV UD PRN PRN Reason: SALINE FLUSH Last Admin: 09/07/19 05:19 Dose: 20 ml Documented by: Spironolactone (Aldactone) 25 mg PO DAILY [facility] Last Admin: 09/06/19 09:06 Dose: 25 mg Documented by: Trazodone HCl (Desyrel) 50 mg PO QHS [facility] Last Admin: 09/06/19 22:56 Dose: 50 mg Documented by: Warfarin Sodium (Jantoven) 3 mg PO MoWeFr@1700 [facility] Warfarin Sodium (Coumadin (Pbkc)) 6 mg PO SuTuThSa@1700 [facility] Last Admin: 09/06/19 16:22 Dose: 6 mg Documented by: Assessment/Plan All Active Problems (Last Reviewed 01/28/19 @ 09:[address] Johan Perry MD) History of congestive heart failure (Acute) Nondisp fracture of fifth left metatarsal bone with routine healing (Acute) 1. left fifth metatarsal fracture non displaced, comminuted, near articular surface but not involving - routine healing, closed -Continue partial weightbear for transfers only. -Wear CAM walker and use assistive device. -Soft cast multi compression wrap was reapplied (webril, zinc oxid, wm) -To elevate -Anticipated fracture healing time was discussed of at least two months. -[facility] (previously seen by Dr. Merritt). 2. right leg and dorsal foot ulcers with fat layer exposed -hyperpigmentation and erythema is consistent with edema exacerbation secondary to CHF and likely venous insufficiency also. -To elevate. -Cellulitis is also treated at this time. Cultures demonstrated gram neg rods and gram positive growth; final pending. Cefazolin ordered. -No surgical debridement or intervention is recommended at this time. -Aquacell ag, gauze, kerlix, wm was applied. -To follow up at wound healing center at time of discharge. 3. actue on chronic CHF, type 2 diabetes, CAD, HL, atrial fibrillation, GERD, chronic kidney disease -Per hospitalist management. Podiatry will continue to follow while in house. Thank you for the continuity of care consultation. Please do not hesitate to call if questions. Samaria Ramos DPM, FACFAS [facility] [phone]
[2019-09-07] MEDS: Acetaminophen 325 MG Tablet 650 MG PO ×2 (09:14→21:37)
[2019-09-07] MEDS: Pantoprazole Sodium 40 MG Tablet PO (09:15)
[2019-09-07] MEDS: Aspirin E.C. 81 MG Tablet PO (09:15)
[2019-09-07] MEDS: Pramipexole Di-HCl 0.25 MG Tablet PO (09:15)
[2019-09-07] MEDS: Isosorbide Mononitrate 60 MG Tablet PO (09:15)
[2019-09-07] MEDS: Amiodarone 200 MG Tablet PO (09:15)
[2019-09-07] MEDS: Insulin NPH Human 100 UNITS/ML PEN 32 UNITS SC ×2 (09:15→16:53)
[2019-09-07] MEDS: Clopidogrel Bisulfate 75 MG Tablet PO (09:16)
[2019-09-07] MEDS: Ranolazine 500 MG Tablet 1000 MG PO ×2 (09:16→21:36)
[2019-09-07] MEDS: Carvedilol 6.25 MG Tablet PO ×2 (09:16→21:36)
[2019-09-07] MEDS: Fenofibrate 145 MG Tablet PO (09:16)
[2019-09-07] MEDS: Spironolactone 25 MG Tablet PO (09:16)
[2019-09-07] MEDS: Lisinopril 20 MG Tablet PO (09:16)
[2019-09-07] MEDS: Furosemide 40 MG/4 ML Vial IV ×2 (09:16→18:21)
[2019-09-07 10:06] LABS: Bedside Glucose 183 mg/dL (70-110)
[2019-09-07] MEDS: Insulin Lispro 100 UNIT/ML INSULN.PEN SC ×3 (11:00→21:35)
[2019-09-07 11:41] LABS: Bedside Glucose 272 mg/dL (70-110)
--- NOTE | 2019-09-07 12:11 | PCM.PROGNOTE ---
<Becky José - Last Filed: 09/07/19 12:20> Subjective: Patient seen and examined. Reports improvement in shortness of breath and lower extremity swelling. Denies chest pain. Denies other complaints. - Physical Exam Vitals/I&O's: Vital Signs Temp Pulse Resp BP Pulse Ox 97.5 F L 65 18 133/60 H 99 09/07/19 09:00 09/07/19 11:06 09/07/19 09:00 09/07/19 09:00 09/07/19 09:00 Oxygen Flow Rate (L/min) 2 Oxygen Delivery Method Nasal Cannula Weight: 260 lb 2.327 oz Body Mass Index (BMI) 39.8 Finger Stick Blood Glucose 180 Intake and Output for Last 24 Hours 09/05/19 09/06/19 09/07/19 23:59 23:59 23:59 Intake Total 334 / 334 1030 / 1030 50 / 50 Output Total 1450 / 1450 1925 / 1925 150 / 150 Balance -1116 / -1116 -895 / -895 -100 / -100 General: Alert, Oriented x3, Cooperative HEENT: Atraumatic, PERRLA, EOMI, Normocephalic Neck: Supple, No JVD, Negative Carotid Bruits Lungs: Clear to auscultation, Diminished Cardiovascular: Regular rate, Regular Rhythm, Normal S1, Normal S2, No murmurs Abdomen: Bowel Sounds Present, Soft, Non Tender, Non-Distended Extremities: No clubbing, No cyanosis, No edema, Capillary Refill Less than 3 Seconds Skin: No rashes, No breakdown, - - Bilateral lower extremity venous stasis skin changes with right lower extremity ulcerations and surrounding erythema. Musculoskeletal: No Tenderness to Palpation of Joints or Extremities Neurological: Cranial nerves II-XII grossly intact, Neuro grossly intact Psych/Mental Status: Normal Affect, Appropriate Microbiology Past 72 Hours 09/06/19 13:35 Wound - Leg, Right Gram Stain - Final 09/06/19 13:35 Wound - Leg, Right Wound Culture - Preliminary Gram negative afsaneh Gram positive organism Laboratory Results 09/06/19 13:35: S.aureus Protein A PCR POSITIVE H, MRSA (PCR) Negative 09/06/19 16:17: POC Glucose 226 H 09/06/19 22:49: POC Glucose 233 H 09/07/19 05:20: Sodium 141, Potassium 4.0, Chloride 104, Carbon Dioxide 29.0, Anion Gap 8, BUN 37 H, Creatinine 1.48 H, Estim Creat Clear Calc 43.01, Est GFR (MDRD) Af Amer 60, Est GFR (MDRD) Non-Af 49 L, BUN/Creatinine Ratio 25.0 H, Glucose 120 H, Calcium 8.4 L 09/07/19 06:51: POC Glucose 148 H 09/07/19 09:12: POC Glucose 183 H 09/07/19 10:59: POC Glucose 272 H Current Medications Acetaminophen (Tylenol) 650 mg PO Q6H PRN PRN PRN Reason: Pain Score 1-01/06 Last Admin: 09/07/19 09:14 Dose: 650 mg Documented by: Amiodarone HCl (Cordarone) 200 mg PO DAILY [facility] Last Admin: 09/07/19 09:15 Dose: 200 mg Documented by: Aspirin (Ecotrin) 81 mg PO DAILY@0800 [facility] Last Admin: 09/07/19 09:15 Dose: 81 mg Documented by: Atorvastatin Calcium (Lipitor) 80 mg PO QHS [facility] Last Admin: 09/06/19 22:57 Dose: 80 mg Documented by: Carvedilol (Coreg) 6.25 mg PO BID [facility] Last Admin: 09/07/19 09:16 Dose: 6.25 mg Documented by: Clopidogrel Bisulfate (Plavix) 75 mg PO DAILY [facility] Last Admin: 09/07/19 09:16 Dose: 75 mg Documented by: Colestipol HCl (Colestid Tablet) 1 gm PO BID [facility] Last Admin: 09/07/19 09:16 Dose: 1 gm Documented by: Dextrose (D50w Syringe) 0 gm IV X1 PRN; Protocol PRN Reason: Hypoglycemia Fenofibrate (Tricor) 145 mg PO DAILY [facility] Last Admin: 09/07/19 09:16 Dose: 145 mg Documented by: Furosemide (Lasix) 40 mg IV BID@1000,1800 [facility] Last Admin: 09/07/19 09:16 Dose: 40 mg Documented by: Glucagon () 1 mg IM .X1 PRN PRN Reason: Hypoglycemia Cefazolin Sodium () 1 gm in 50 mls @ 100 mls/hr IV Q8 [facility] Last Infusion: 09/07/19 05:49 Dose: Infused Documented by: Insulin Human Lispro (Humalog Kwjignapen ([facility])) 0 unit SC ACHS [facility]; Protocol Last Admin: 09/07/19 11:00 Dose: 6 units Documented by: Insulin Human NPH (Humulin N ([facility])) 32 units SC BIDCM [facility] Last Admin: 09/07/19 09:15 Dose: 32 units Documented by: Isosorbide Mononitrate (Imdur) 60 mg PO DAILY [facility] Last Admin: 09/07/19 09:15 Dose: 60 mg Documented by: Latanoprost (Xalatan Opthalmic) 1 drop EACH EYE QHS [facility] Last Admin: 09/06/19 22:58 Dose: 1 drop Documented by: Lisinopril (Zestril) 20 mg PO DAILY [facility] Last Admin: 09/07/19 09:16 Dose: 20 mg Documented by: Nitroglycerin (Nitrostat) 0.4 mg SUBLINGUAL Q5M PRN PRN Reason: Chest Pain Ondansetron HCl (Zofran) 4 mg IV Q8H PRN PRN PRN Reason: NAUSEA/VOMITING Last Admin: 09/06/19 23:08 Dose: 4 mg Documented by: Pantoprazole Sodium (Protonix) 40 mg PO DAILY [facility] Last Admin: 09/07/19 09:15 Dose: 40 mg Documented by: Pramipexole Dihydrochloride (Mirapex) 0.25 mg PO DAILY [facility] Last Admin: 09/07/19 09:15 Dose: 0.25 mg Documented by: Prochlorperazine Edisylate (Compazine Iv) 5 mg IV Q6H PRN PRN PRN Reason: NAUSEA/VOMITING Last Admin: 09/07/19 03:26 Dose: 5 mg Documented by: Ranolazine (Ranexa) 1,000 mg PO BID [facility] Last Admin: 09/07/19 09:16 Dose: 1,000 mg Documented by: Sodium Chloride () 10 - 40 ml IV UD PRN PRN Reason: SALINE FLUSH Last Admin: 09/07/19 09:17 Dose: 10 ml Documented by: Spironolactone (Aldactone) 25 mg PO DAILY [facility] Last Admin: 09/07/19 09:16 Dose: 25 mg Documented by: Trazodone HCl (Desyrel) 50 mg PO QHS [facility] Last Admin: 06/09/20 22:56 Dose: 50 mg Documented by: Warfarin Sodium (Jantoven) 3 mg PO MoWeFr@1700 [facility] Warfarin Sodium (Coumadin (Pbkc)) 6 mg PO SuTuThSa@1700 [facility] Last Admin: 09/06/19 16:22 Dose: 6 mg Documented by: Medical Necessity - Tobacco Use Smoking Status: Former smoker Tobacco Use: Cigars Assessment/Plan All Active Problems (Last Reviewed 01/28/19 @ 09:[address] Johan Perry MD) History of congestive heart failure (Acute) 1. Acute on chronic heart failure with preserved ejection fraction-chest CTA without PE. BNP normal however patient has significant lower extremity swelling. Echocardiogram demonstrates an EF of 47%. Continue IV Lasix. Strict I&O. Daily weight. Terry wraps bilateral lower extremities. Continue supplement oxygen to maintain O2 at or above 90%. Patient has not been documented to be hypoxic. Wean as tolerated. 2. Chronic venous stasis/stasis dermatitis and right lower extremity ulcerations-right lower extremity ultrasound negative for DVT. Wound care consulted. IV cefazolin. Culture right lower extremity wound pending, preliminary growing gram-negative afsaneh and gram-positive organism. Continue dressing changes per orders. 3. Left foot fracture- States he is following with Dr. Ramos. Soft cast in place. Partial weightbearing. PT/OT. Podiatry consulted. 4. CAD with history of stents-continue aspirin, Plavix, statin, isosorbide, lisinopril. Follows with Dr. Perry. 5. Type 2 diabetes [id number] with sliding scale insulin. Continue home insulin regimen. 6. History of nonsustained V. tach status post ICD placement 7. Paroxysmal atrial fibrillation-on amiodarone, carvedilol, Coumadin. 8. Hyperlipidemia-continue statin, fenofibrate. 9. GERD-continue PPI. 10. Chronic kidney disease stage III-at baseline, trend BMP. DVT prophylaxis-Coumadin This patient was seen by NICOL Russell under the supervision of Dr. Roland. <Wesley Roland - Last Filed: 09/07/19 15:34> Subjective: Breathing well. - Physical Exam Vitals/I&O's: Vital Signs Temp Pulse Resp BP Pulse Ox 36.4 C L 58 L 18 100/56 L 99 09/07/19 14:07 06/10/20 15:03 09/07/19 14:07 09/07/19 14:07 09/07/19 14:07 Oxygen Flow Rate (L/min) 2 Oxygen Delivery Method Nasal Cannula Weight: 118 kg Body Mass Index (BMI) 39.8 Finger Stick Blood Glucose 180 Intake and Output for Last 24 Hours 09/05/19 09/06/19 09/07/19 23:59 23:59 23:59 Intake Total 334 / 334 1030 / 1030 710 / 710 Output Total 1450 / 1450 1925 / 1925 725 / 725 Balance -1116 / -1116 -895 / -895 -15 / -15 General: Alert, Cooperative HEENT: Atraumatic, Normocephalic Neck: No Nodes, Thyroid Normal Size and Texture Lungs: Clear to auscultation, Normal air movement, No rhonchi, No wheeze Cardiovascular: Regular rate, Regular Rhythm, Normal S1, Normal S2 Abdomen: Bowel Sounds Present, Soft, Non Tender, Non-Distended Extremities: No Calf Tenderness, Edema Skin: - Psych/Mental Status: Normal Affect, Appropriate Microbiology Past 72 Hours 09/06/19 13:35 Wound - Leg, Right Gram Stain - Final 09/06/19 13:35 Wound - Leg, Right Wound Culture - Preliminary Gram negative afsaneh Gram positive organism Laboratory Results 09/06/19 13:35: S.aureus Protein A PCR POSITIVE H, MRSA (PCR) Negative 09/06/19 16:17: POC Glucose 226 H 09/06/19 22:49: POC Glucose 233 H 09/07/19 05:20: Sodium 141, Potassium 4.0, Chloride 104, Carbon Dioxide 29.0, Anion Gap 8, BUN 37 H, Creatinine 1.48 H, Estim Creat Clear Calc 43.01, Est GFR (MDRD) Af Amer 60, Est GFR (MDRD) Non-Af 49 L, BUN/Creatinine Ratio 25.0 H, Glucose 120 H, Calcium 8.4 L 09/07/19 06:51: POC Glucose 148 H 09/07/19 09:12: POC Glucose 183 H 09/07/19 10:59: POC Glucose 272 H Current Medications Acetaminophen (Tylenol) 650 mg PO Q6H PRN PRN PRN Reason: Pain Score 1-10/10 Last Admin: 09/07/19 09:14 Dose: 650 mg Documented by: Amiodarone HCl (Cordarone) 200 mg PO DAILY [facility] Last Admin: 09/07/19 09:15 Dose: 200 mg Documented by: Aspirin (Ecotrin) 81 mg PO DAILY@0800 [facility] Last Admin: 09/07/19 09:15 Dose: 81 mg Documented by: Atorvastatin Calcium (Lipitor) 80 mg PO QHS [facility] Last Admin: 09/06/19 22:57 Dose: 80 mg Documented by: Carvedilol (Coreg) 6.25 mg PO BID [facility] Last Admin: 09/07/19 09:16 Dose: 6.25 mg Documented by: Clopidogrel Bisulfate (Plavix) 75 mg PO DAILY [facility] Last Admin: 09/07/19 09:16 Dose: 75 mg Documented by: Colestipol HCl (Colestid Tablet) 1 gm PO BID [facility] Last Admin: 09/07/19 09:16 Dose: 1 gm Documented by: Dextrose (D50w Syringe) 0 gm IV X1 PRN; Protocol PRN Reason: Hypoglycemia Fenofibrate (Tricor) 145 mg PO DAILY [facility] Last Admin: 09/07/19 09:16 Dose: 145 mg Documented by: Furosemide (Lasix) 40 mg IV BID@1000,1800 [facility] Last Admin: 09/07/19 09:16 Dose: 40 mg Documented by: Glucagon () 1 mg IM .X1 PRN PRN Reason: Hypoglycemia Cefazolin Sodium () 1 gm in 50 mls @ 100 mls/hr IV Q8 [facility] Last Infusion: 09/07/19 15:10 Dose: Infused Documented by: Insulin Human Lispro (Humalog Kwikpen ([facility])) 0 unit SC ACHS [facility]; Protocol Last Admin: 09/07/19 11:00 Dose: 6 units Documented by: Insulin Human NPH (Humulin N ([facility])) 32 units SC BIDCM [facility] Last Admin: 09/07/19 09:15 Dose: 32 units Documented by: Isosorbide Mononitrate (Imdur) 60 mg PO DAILY [facility] Last Admin: 09/07/19 09:15 Dose: 60 mg Documented by: Latanoprost (Xalatan Opthalmic) 1 drop EACH EYE QHS [facility] Last Admin: 09/06/19 22:58 Dose: 1 drop Documented by: Lisinopril (Zestril) 20 mg PO DAILY [facility] Last Admin: 09/07/19 09:16 Dose: 20 mg Documented by: Nitroglycerin (Nitrostat) 0.4 mg SUBLINGUAL Q5M PRN PRN Reason: Chest Pain Ondansetron HCl (Zofran) 4 mg IV Q8H PRN PRN PRN Reason: NAUSEA/VOMITING Last Admin: 09/06/19 23:08 Dose: 4 mg Documented by: Pantoprazole Sodium (Protonix) 40 mg PO DAILY [facility] Last Admin: 09/07/19 09:15 Dose: 40 mg Documented by: Pramipexole Dihydrochloride (Mirapex) 0.25 mg PO DAILY [facility] Last Admin: 09/07/19 09:15 Dose: 0.25 mg Documented by: Prochlorperazine Edisylate (Compazine Iv) 5 mg IV Q6H PRN PRN PRN Reason: NAUSEA/VOMITING Last Admin: 09/07/19 03:26 Dose: 5 mg Documented by: Ranolazine (Ranexa) 1,000 mg PO BID [facility] Last Admin: 09/07/19 09:16 Dose: 1,000 mg Documented by: Sodium Chloride () 10 - 40 ml IV UD PRN PRN Reason: SALINE FLUSH Last Admin: 09/07/19 09:17 Dose: 10 ml Documented by: Spironolactone (Aldactone) 25 mg PO DAILY [facility] Last Admin: 09/07/19 09:16 Dose: 25 mg Documented by: Trazodone HCl (Desyrel) 50 mg PO QHS [facility] Last Admin: 09/06/19 22:56 Dose: 50 mg Documented by: Warfarin Sodium (Jantoven) 3 mg PO MoWeFr@1700 [facility] Warfarin Sodium (Coumadin (Pbkc)) 6 mg PO SuTuThSa@1700 [facility] Last Admin: 09/06/19 16:22 Dose: 6 mg Documented by: Assessment/Plan Patient seen and examined independently. Data reviewed. I agree with the above note by the nurse practitioner. 1. Acute HFrEF: Ef 47% continue furosemide IV continue carvedilol and lisinopril Inpatient E&M: 22774 [facility] L2
[2019-09-07 17:00] LABS: Bedside Glucose 204 mg/dL (70-110)
[2019-09-07] MEDS: traZODone 50 MG Tablet PO (21:36)
[2019-09-07] MEDS: Atorvastatin Calcium 80 MG Tablet PO (21:37)
[2019-09-07] MEDS: Latanoprost 0.005% 1 Bottle 1 DRP EACH EYE (21:37)
[2019-09-07 22:05] LABS: Bedside Glucose 197 mg/dL (70-110)
[2019-09-08] VITALS (10 sets, daily range): BP systolic 112–121; BP diastolic 61–67; PULSE 55–65; RESP 18; TEMP 36.4–36.9; O2SAT 89–98
[2019-09-08] MEDS: Ipratropium/Albuterol Sulfate 3 ML AMPUL.NEB INHALATION (00:12)
[2019-09-08] MEDS: Furosemide 40 MG/4 ML Vial IV ×2 (04:31→10:06)
[2019-09-08] MEDS: 0.9% Saline Lock 10 ML Syringe IV ×2 (04:31→10:06)
[2019-09-08] MEDS: Cefazolin 1 GM/50 ML BAG IV (05:20)
[2019-09-08 06:55] LABS: Bedside Glucose 143 mg/dL (70-110)
[2019-09-08 07:28] LABS: Anion Gap 6 (5-15); BUN 40 mg/dL (7-18); BUN/Creat Ratio 25.8 RATIO (10-20); Calcium,Total 8.6 mg/dL (8.5-10.1); Chloride 105 mmol/L (98-107); Creatinine, Serum 1.55 mg/dL (0.70-1.30); EST Glomerular Filtration Rate 47 mL/min (>60); Est Glom Filt Rate - Afr Amer 57 mL/min (>60); Estimated Creatinine Clearance 41.06 ml/min; Glucose 138 mg/dL (74-106); Potassium 4.3 mmol/L (3.5-5.1); Sodium Level 143 mmol/L (136-145)
[2019-09-08] MEDS: Aspirin E.C. 81 MG Tablet PO (08:05)
[2019-09-08] MEDS: Insulin NPH Human 100 UNITS/ML PEN 32 UNITS SC (08:06)
[2019-09-08] MEDS: Carvedilol 6.25 MG Tablet PO (10:06)
[2019-09-08] MEDS: Lisinopril 20 MG Tablet PO (10:06)
[2019-09-08] MEDS: Pramipexole Di-HCl 0.25 MG Tablet PO (10:06)
[2019-09-08] MEDS: Ranolazine 500 MG Tablet 1000 MG PO (10:06)
[2019-09-08] MEDS: Clopidogrel Bisulfate 75 MG Tablet PO (10:06)
[2019-09-08] MEDS: Amiodarone 200 MG Tablet PO (10:06)
[2019-09-08] MEDS: Isosorbide Mononitrate 60 MG Tablet PO (10:06)
[2019-09-08] MEDS: Spironolactone 25 MG Tablet PO (10:06)
[2019-09-08] MEDS: Fenofibrate 145 MG Tablet PO (10:06)
[2019-09-08] MEDS: Pantoprazole Sodium 40 MG Tablet PO (10:06)
[2019-09-08] MEDS: Insulin Lispro 100 UNIT/ML INSULN.PEN SC (11:16)
[2019-09-08 11:21] LABS: Bedside Glucose 217 mg/dL (70-110)
--- NOTE | 2019-09-08 11:32 | CASEMGMT ---
Addendum entered by Theo Dupree 09/08/19 12:50: Call received back from Melany @ [facility] and they are able to accept pt. She is aware pt is discharging today, has daily dressing changes, and that pt states family would be agreeable to teaching on wound care/dsg changes. Pt made aware [facility] able to accept pt and that they will contact him to arrange start of care. Home O2 testing has been completed. Pt does not qualify for Home O2 at this time. Pt denies having any other concerns/discharge needs at this time. Jazlyn SHEIKH RN, CM Original Note: DIANA HENRY NOTE: Per CELESTE Castro, pt will be discharged today. Pt is PWB to [facility]. PT/OT notes reviewed. Additional therapy recommended. Pt also has wound BLE and getting dressing changes to RLE daily. DIANA HENRY to room to discuss discharge planning/needs. Pt states is interested in [facility]. Given list of local [facility] agencies and pt's 1st preference is [facility]. Call placed to Melany @ [facility] and VM message w/referral. Awaiting acceptance. Pt may qualify for Home O2. Awaiting Home O2 testing results. Pt given list of local DME companies for his preference/choice. Pt agreeable to [employer] if he qualifies for O2. Jazlyn SHEIKH RN, CM
--- NOTE | 2019-09-08 11:40 | PCM.DC ---
- Discharge Diagnoses Current Active Problems: Current Active and Chronic Problems (Last Reviewed 01/28/19 @ 09:[address] Johan Perry MD) Acute on chronic CHF Ulcer of right lower extremity with fat layer exposed (Chronic) Localized edema (Chronic) Nondisp fracture of fifth left metatarsal bone with routine healing (Acute) Walking difficulty due to ankle and foot (Chronic) You will use the following diet at home:: Calorie/Carbohydrate Controlled (specify 1200, 1400, etc), Cardiac Discharge Activity: Return to Normal Activity Call your doctor if you observe: Shortness of breath, Dizziness, Fainting spells, Chest pain Allergies/Adverse Reactions: Allergies ceftriaxone sodium [From Rocephin] Allergy (Verified 09/05/19 15:45) Rash milk Adverse Reaction (Verified 09/05/19 15:45) Diarrhea morphine Adverse Reaction (Verified 09/05/19 15:45) hallucinations Medications to take at Discharge Clopidogrel Bisulfate [Plavix] 75 mg PO DAILY 12/04/14 Insulin Lispro [Humalog] 20 unit SQ TIDCM 08/25/17 Lisinopril [Zestril] 20 mg PO DAILY 08/25/17 carvedilol 6.25 mg tablet 6.25 mg PO BID #180 tab 10/11/18 Aspirin E.C. [Ecotrin] 81 mg PO DAILY@0800 11/17/18 Latanoprost 1 drp EACH EYE QHS 11/17/18 Warfarin Sodium 6 mg PO SUTUTHSA 11/17/18 Colestipol Tablet [Colestid Tablet] 1 gm PO BID 12/02/18 Fenofibrate Nanocrystallized [Tricor] 145 mg PO DAILY 12/02/18 Insulin NPH Human Isophane [Humulin N Vial] 32 units SQ BID 12/02/18 Ranolazine [Ranexa] 1,000 mg PO BID 12/02/18 Furosemide [Lasix] 40 mg PO BID #60 tab 12/06/18 Nitroglycerin (INPATIENT USE) [Nitrostat] 0.4 mg SUBLINGUAL Q5M PRN #1 bottle 12/06/18 spironolactone 25 mg tablet 25 mg PO DAILY #90 tab 12/16/18 amiodarone 200 mg tablet 200 mg PO DAILY #90 tab 01/06/19 trazodone 50 mg tablet 50 mg PO QHS tab 01/28/19 pantoprazole 40 mg tablet,delayed release 40 mg PO DAILY #90 tab 04/27/19 isosorbide mononitrate 60 mg tablet,extended release 24 hr 60 mg PO DAILY #90 tab 05/10/19 rosuvastatin 40 mg tablet 40 mg PO QHS #90 tab 06/27/19 Ropinirole HCl [Requip] 0.5 mg PO DAILY 09/05/19 Warfarin Sodium [Jantoven] 3 mg PO MOWEFR 09/05/19 Cephalexin [Keflex] 500 mg PO Q12 #10 cap 09/08/19 The following prescriptions were given: Cephalexin [Keflex] 500 mg PO Q12 #10 cap Transmission Status: Pending to [id number] Primary Care Physician: Gilbert Keyes III, MD [Primary Care Provider] - Please follow up with your Primary Care Physician in: 1 Week Test Results: Test results from this visit will be discussed in further detail at your follow-up appointment, if applicable. Please Follow Up With: Johan Perry MD When: May see [employer]OX [employer]ENDER/PA, 2 Weeks Please Follow Up With: Samaria Ramos DPM When: 2 Weeks Please Follow Up With: Clinic,Wound When: 1 Week Proposed Discharge Date: 09/08/19
--- NOTE | 2019-09-08 11:48 | DS.PCM_ITS ---
<Becky José - Last Filed: 09/08/19 11:58> Discharge Date and Diagnosis Date of Admission: 09/05/19 Date of Discharge: 09/08/19 - Primary Discharge Diagnosis Acute Problems: Active Problems (Last Reviewed 01/28/19 @ 09:[address] Johan Perry MD) 1. Acute on chronic heart failure with reduced ejection fraction 2. Right lower extremity cellulitis with chronic venous stasis/stasis dermatitis and right leg and dorsal foot ulcers 3. Recent left fifth metatarsal fracture nondisplaced 4. CAD with history of stents 5. Type 2 diabetes mellitus 6. History of nonsustained V. tach status post ICD placement 7. Paroxysmal atrial fibrillation 8. Hyperlipidemia 9. GERD 10. Chronic kidney disease stage III - Secondary Discharge Diagnosis Chronic Problems: Chronic Problems (Last Reviewed 01/28/19 @ 09:[address] Johan Perry MD) Ulcer of right lower extremity with fat layer exposed (Chronic) Localized edema (Chronic) Walking difficulty due to ankle and foot (Chronic) Atherosclerotic heart disease of [place] coronary artery with other forms of angina pectoris (Chronic) AIN-Tdvpk-[id number] Cx; PCI-Cutting Balloon Angioplasty of ISR-ostium of prox lat CX 11/22/02; PCI-stent to proximal OM 01/2008; PCI- [id number] OM 12/15/13;LHC w/FFR of LAD, D1, LCx 05/30/2016 Old inferior wall myocardial infarction (Chronic) Ischemic cardiomyopathy (Chronic) History of coronary artery stent placement (Chronic 12/15/14) [id number]; PCI-Cutting Balloon Angioplasty of ISR-ostium of prox OM1 11/22/02; PCI-stent to proximal OM1 01/2008; PCI- [id number] OM1 w/ 2.5 x 12 mm Promus Premier 12/15/14 History of implantable cardiac defibrillator (ICD) (Chronic 11/19/17) 11/23/2002, Generator change 2017 Acute systolic (congestive) heart failure (Chronic) Paroxysmal atrial flutter (Chronic) Nonsustained ventricular tachycardia (Chronic) Hyperlipidemia (Chronic) Hospital Course and Treatment Imaging Results: Diagnostic Data Chest X-Ray 09/05/19 16:45 IMPRESSION: No visualized acute process Electronically Signed: Fahad Evans MD at 17:30 EDT , Service support , Chest CTA 09/05/19 20:15 IMPRESSION: No demonstrated pulmonary embolism or arterial dissection. No acute cardiopulmonary process. Atherosclerosis. Electronically Signed: Linda Plata MD at 23:11 EDT Tel , Service support , Foot X-Ray 09/07/19 06:15 IMPRESSION: Fracture of the base of the fifth metatarsal bone. Electronically Signed: Ervin Tiwari MD at 7:17 EDT , Service support , Consultations 09/05/19 19:30 Consult: Onc/Wound/veteran appeals reviewer Routine Comment: Reason for Consult:: Lower extremity stasis ulcers Dr. Ramos- Podiatry Operations: None Procedures: 2-D Echocardiogram Summary of Care Provided: The patient is a 73 year old M admitted 09/05/2019 due to shortness of breath. 1. Acute on chronic heart failure with reduced ejection fraction-chest CTA without PE. BNP normal however patient has significant lower extremity swelling. Echocardiogram demonstrates an EF of 47%. IV Lasix during admission. Transition to home Lasix regimen 40 mg twice daily at discharge. Terry wraps bilateral lower extremities. Follow-up with cardiology in 2 weeks, patient follows with Dr. Perry. 2. Right lower extremity cellulitis with chronic venous stasis/stasis dermatitis and right leg and dorsal foot ulcers-right lower extremity ultrasound negative for DVT. IV cefazolin during admission, transition to oral Keflex to complete course. Culture growing gram-negative afsaneh, staph aureus. Continue dressing changes which includes washing bilateral lower extremities daily with soap and water, pat dry. Place Aquacel Ag to the open areas of right lower extremity. Cover with dry dressing and wrap with Kerlix and Terry wrap. Patient will follow- up with wound center and podiatry at discharge. 3. Recent left fifth metatarsal fracture nondisplaced- Following with Dr. Ramos. Soft cast in place. Partial weightbearing. PT/OT. Podiatry consulted. Follow-up with podiatry in 2 weeks. 4. CAD with history of stents-continue aspirin, Plavix, statin, isosorbide, lisinopril. Follows with Dr. Perry. 5. Type 2 diabetes mellitus- Continue home insulin regimen. 6. History of nonsustained V. tach status post ICD placement 7. Paroxysmal atrial fibrillation-on amiodarone, carvedilol, Coumadin. 8. Hyperlipidemia-continue statin, fenofibrate. 9. GERD-continue PPI. 10. Chronic kidney disease stage III-at baseline. General: Alert, Oriented x3, Cooperative HEENT: Atraumatic, PERRLA, EOMI, Normocephalic Neck: Supple, No JVD, Negative Carotid Bruits Lungs: Clear to auscultation, Diminished Cardiovascular: Regular rate, Regular Rhythm, Normal S1, Normal S2, No murmurs Abdomen: Bowel Sounds Present, Soft, Non Tender, Non-Distended Extremities: No clubbing, No cyanosis, No edema, Capillary Refill Less than 3 Seconds Skin: No rashes, No breakdown, - - Bilateral lower extremity venous stasis skin changes with right lower extremity ulcerations and surrounding erythema. Musculoskeletal: No Tenderness to Palpation of Joints or Extremities Neurological: Cranial nerves II-XII grossly intact, Neuro grossly intact Psych/Mental Status: Normal Affect, Appropriate Patient seen and examined prior to discharge. Physical assessment as noted above. Patient is stable for discharge with follow up recommendations as noted above. This patient was seen by NICOL Russell under the supervision of Dr. Roland. - Physical Exam Vitals/I&O's: Vital Signs Temp Pulse Resp BP Pulse Ox 97.6 F L 65 18 117/67 93 09/08/19 10:02 09/08/19 10:02 09/08/19 10:02 09/08/19 10:09/08/19 10:02 Oxygen Flow Rate (L/min) 2 Oxygen Delivery Method Room Air Weight: 262 lb 2.074 oz Body Mass Index (BMI) 39.8 Finger Stick Blood Glucose 180 Intake and Output for Last 24 Hours 09/06/19 09/07/19 09/08/19 23:59 23:59 23:59 Intake Total 1030 / 1030 1700 / 1700 420 / 420 Output Total 1925 / 1925 1175 / 1175 2049 Balance -895 / -895 525 / 525 -1630 / -1630 Microbiology Past 72 Hours 09/06/19 13:35 Wound - Leg, Right Gram Stain - Final 09/06/19 13:35 Wound - Leg, Right Wound Culture - Preliminary Gram negative afsaneh Staphylococcus aureus Laboratory Results 09/07/19 16:49: POC Glucose 204 H 09/07/19 21:28: POC Glucose 197 H 09/08/19 06:50: POC Glucose 143 H 09/08/19 06:59: Sodium 143, Potassium 4.3, Chloride 105, Carbon Dioxide 32.0, Anion Gap 6, BUN 40 H, Creatinine 1.55 H, Estim Creat Clear Calc 41.06, Est GFR (MDRD) Af Amer 57 L, Est GFR (MDRD) Non-Af 47 L, BUN/Creatinine Ratio 25.8 H, Glucose 138 H, Calcium 8.6 09/08/19 11:15: POC Glucose 217 H Current Medications Acetaminophen (Tylenol) 650 mg PO Q6H PRN PRN PRN Reason: Pain Score 1-01/06 Last Admin: 09/07/19 21:37 Dose: 650 mg Documented by: Amiodarone HCl (Cordarone) 200 mg PO DAILY [facility] Last Admin: 09/08/19 10:06 Dose: 200 mg Documented by: Aspirin (Ecotrin) 81 mg PO DAILY@0800 [facility] Last Admin: 09/08/19 08:05 Dose: 81 mg Documented by: Atorvastatin Calcium (Lipitor) 80 mg PO QHS [facility] Last Admin: 09/07/19 21:37 Dose: 80 mg Documented by: Carvedilol (Coreg) 6.25 mg PO BID [facility] Last Admin: 09/08/19 10:06 Dose: 6.25 mg Documented by: Clopidogrel Bisulfate (Plavix) 75 mg PO DAILY [facility] Last Admin: 09/08/19 10:06 Dose: 75 mg Documented by: Colestipol HCl (Colestid Tablet) 1 gm PO BID [facility] Last Admin: 09/08/19 10:06 Dose: 1 gm Documented by: Dextrose (D50w Syringe) 0 gm IV X1 PRN; Protocol PRN Reason: Hypoglycemia Fenofibrate (Tricor) 145 mg PO DAILY [facility] Last Admin: 09/08/19 10:06 Dose: 145 mg Documented by: Furosemide (Lasix) 40 mg IV BID@1000,1800 [facility] Last Admin: 09/08/19 10:06 Dose: 40 mg Documented by: Glucagon () 1 mg IM .X1 PRN PRN Reason: Hypoglycemia Cefazolin Sodium () 1 gm in 50 mls @ 100 mls/hr IV Q8 [facility] Last Infusion: 09/08/19 05:50 Dose: Infused Documented by: Insulin Human Lispro (Humalog Kwikpen (Bk)) 0 unit SC ACHS [facility]; Protocol Last Admin: 09/08/19 11:16 Dose: 4 units Documented by: Insulin Human NPH (Humulin N (Bk)) 32 units SC BIDCM [facility] Last Admin: 09/08/19 08:06 Dose: 32 units Documented by: Isosorbide Mononitrate (Imdur) 60 mg PO DAILY [facility] Last Admin: 09/08/19 10:06 Dose: 60 mg Documented by: Latanoprost (Xalatan Opthalmic) 1 drop EACH EYE QHS [facility] Last Admin: 09/07/19 21:37 Dose: 1 drop Documented by: Lisinopril (Zestril) 20 mg PO DAILY [facility] Last Admin: 09/08/19 10:06 Dose: 20 mg Documented by: Nitroglycerin (Nitrostat) 0.4 mg SUBLINGUAL Q5M PRN PRN Reason: Chest Pain Ondansetron HCl (Zofran) 4 mg IV Q8H PRN PRN PRN Reason: NAUSEA/VOMITING Last Admin: 09/06/19 23:08 Dose: 4 mg Documented by: Pantoprazole Sodium (Protonix) 40 mg PO DAILY [facility] Last Admin: 09/08/19 10:06 Dose: 40 mg Documented by: Pramipexole Dihydrochloride (Mirapex) 0.25 mg PO DAILY [facility] Last Admin: 09/08/19 10:06 Dose: 0.25 mg Documented by: Prochlorperazine Edisylate (Compazine Iv) 5 mg IV Q6H PRN PRN PRN Reason: NAUSEA/VOMITING Last Admin: 09/07/19 03:26 Dose: 5 mg Documented by: Ranolazine (Ranexa) 1,000 mg PO BID [facility] Last Admin: 09/08/19 10:06 Dose: 1,000 mg Documented by: Sodium Chloride () 10 - 40 ml IV UD PRN PRN Reason: SALINE FLUSH Last Admin: 09/08/19 10:06 Dose: 10 ml Documented by: Spironolactone (Aldactone) 25 mg PO DAILY [facility] Last Admin: 09/08/19 10:06 Dose: 25 mg Documented by: Trazodone HCl (Desyrel) 50 mg PO QHS [facility] Last Admin: 09/07/19 21:36 Dose: 50 mg Documented by: Warfarin Sodium (Jantoven) 3 mg PO MoWeFr@1700 [facility] Last Admin: 09/07/19 16:54 Dose: 3 mg Documented by: Warfarin Sodium (Coumadin (Pbkc)) 6 mg PO SuTuThSa@1700 [facility] Last Admin: 09/06/19 16:22 Dose: 6 mg Documented by: Discharge Diet: Low fat/ Low Cholesterol, 8 Cup Fluid Restriciton, 2000 mg Sodium Diet, Carb Control Diet Discharge Activity: Return to Normal Activity Call your doctor if you observe: Shortness of breath, Dizziness, Fainting spells, Chest pain Home Medications: Medications to take at Discharge Clopidogrel Bisulfate [Plavix] 75 mg PO DAILY 12/04/14 Insulin Lispro [Humalog] 20 unit SQ TIDCM 08/25/17 Lisinopril [Zestril] 20 mg PO DAILY 08/25/17 carvedilol 6.25 mg tablet 6.25 mg PO BID #180 tab 10/11/18 Aspirin E.C. [Ecotrin] 81 mg PO DAILY@0800 11/17/18 Latanoprost 1 drp EACH EYE QHS 11/17/18 Warfarin Sodium 6 mg PO SUTUTHSA 11/17/18 Colestipol Tablet [Colestid Tablet] 1 gm PO BID 12/02/18 Fenofibrate Nanocrystallized [Tricor] 145 mg PO DAILY 12/02/18 Insulin NPH Human Isophane [Humulin N Vial] 32 units SQ BID 12/02/18 Ranolazine [Ranexa] 1,000 mg PO BID 12/02/18 Furosemide [Lasix] 40 mg PO BID #60 tab 12/06/18 Nitroglycerin (INPATIENT USE) [Nitrostat] 0.4 mg SUBLINGUAL Q5M PRN #1 bottle 12/06/18 spironolactone 25 mg tablet 25 mg PO DAILY #90 tab 12/16/18 amiodarone 200 mg tablet 200 mg PO DAILY #90 tab 01/06/19 trazodone 50 mg tablet 50 mg PO QHS tab 01/28/19 pantoprazole 40 mg tablet,delayed release 40 mg PO DAILY #90 tab 04/27/19 isosorbide mononitrate 60 mg tablet,extended release 24 hr 60 mg PO DAILY #90 tab 05/10/19 rosuvastatin 40 mg tablet 40 mg PO QHS #90 tab 06/27/19 Ropinirole HCl [Requip] 0.5 mg PO DAILY 09/05/19 Warfarin Sodium [Jantoven] 3 mg PO MOWEFR 09/05/19 Cephalexin [Keflex] 500 mg PO Q12 #10 cap 09/08/19 Following Prescrptions Were Given to Patient: Cephalexin [Keflex] 500 mg PO Q12 #10 cap Transmission Status: Received by [id number] Primary Care Physician: Gilbert Keyes III, MD [Primary Care Provider] - Please follow up with your Primary Care Physician in: 1 Week Please Follow Up With: Johan Peryr MD When: May see [employer]PATCHER/PA, 2 Weeks Please Follow Up With: Samaria Ramos DPM When: 2 Weeks Please Follow Up With: Clinic,Wound When: 1 Week Disposition: Home with Home Health Minutes spent on discharge:: 35 Patient Condition:: Stable Medical Necessity - Tobacco Use Smoking Status: Former smoker Tobacco Use: Cigars Meaningful Use Info Meaningful Use Diagnoses (Choose all that apply): CHF - CHF TERRY/ARB ordered at discharge?: Yes Documented LVEF (%): 47 <Wesley Roland - Last Filed: 09/08/19 15:34> Discharge Date and Diagnosis - Secondary Discharge Diagnosis Chronic Problems: Chronic Problems (Last Reviewed 01/28/19 @ 09:[address] Johan Perry MD) Ulcer of right lower extremity with fat layer exposed (Chronic) Localized edema (Chronic) Walking difficulty due to ankle and foot (Chronic) Atherosclerotic heart disease of [place] coronary artery with other forms of angina pectoris (Chronic) MTR-Apygg-Naj Cx; PCI-Cutting Balloon Angioplasty of ISR-ostium of prox lat CX 11/22/02; PCI-stent to proximal OM 01/2008; PCI- [id number] OM ;LHC w/FFR of LAD, D1, LCx 05/30/2016 Old inferior wall myocardial infarction (Chronic) Ischemic cardiomyopathy (Chronic) History of coronary artery stent placement (Chronic 12/15/14) [id number]; PCI-Cutting Balloon Angioplasty of ISR-ostium of prox OM1 11/22/02; PCI-stent to proximal OM1 01/2008; PCI- [id number] OM1 w/ 2.5 x 12 mm Promus Premier 12/15/14 History of implantable cardiac defibrillator (ICD) (Chronic 11/19/17) 11/23/2002, Generator change 2017 Acute systolic (congestive) heart failure (Chronic) Paroxysmal atrial flutter (Chronic) Nonsustained ventricular tachycardia (Chronic) Hyperlipidemia (Chronic) Hospital Course and Treatment Consultations 09/05/19 19:30 Consult: Onc/Wound/veteran appeals reviewer Routine Comment: Reason for Consult:: Lower extremity stasis ulcers Operations: None Procedures: 2-D Echocardiogram - Normal LV size. The estimated ejection fraction is 47 %. Paced septal motion. There is mild global hypokinesis of the left ventricle. ICD or pacer leads identified within the right ventricle. Posterior- Basal: Akinetic. Compared to prior study, there is no significant change. Summary of Care Provided: Patient seen and examined independently. Data reviewed. I agree with the above note by the nurse practitioner. The patient is a 73 year old M presents with shortness of breath. Patient was treated for heart failure with IV furosemide. Patient was changed over to oral upon discharge. Continue recommend fluid restriction and daily weights. [] - Physical Exam Vitals/I&O's: Vital Signs Temp Pulse Resp BP Pulse Ox 36.4 C L 65 18 117/67 92 09/08/19 10:02 09/08/19 10:02 09/08/19 10:02 09/08/19 10:02 09/08/19 12:06 Oxygen Flow Rate (L/min) 2 Oxygen Delivery Method Room Air Weight: 118.9 kg Body Mass Index (BMI) 39.8 Finger Stick Blood Glucose 180 Intake and Output for Last 24 Hours 09/06/19 09/07/19 09/08/19 23:59 23:59 23:59 Intake Total 1030 / 1030 1700 / 1700 420 / 420 Output Total 1925 / 1925 1175 / 1175 2049 Balance -895 / -895 525 / 525 -1630 / -1630 General: Alert, No apparent distress HEENT: Atraumatic, Normocephalic Oral: Moist Mucosa, No Gingival or Mucosal Lesions/ Ulcerations Neck: No Nodes, Thyroid Normal Size and Texture Lungs: Clear to auscultation, Normal air movement, No rhonchi, No wheeze, No rales Cardiovascular: Regular rate, Regular Rhythm, Normal S1, Normal S2, No murmurs Abdomen: Bowel Sounds Present, Soft, Non Tender, Non-Distended, No Hepato- splenomegaly Extremities: No Calf Tenderness, Edema Psych/Mental Status: Normal Affect, Appropriate Microbiology Past 72 Hours 09/05/19 17:38 Blood Culture (Wb) - Anticubital Right Blood Culture - Preliminary No growth in 48 hours. 09/06/19 13:35 Wound - Leg, Right Gram Stain - Final 09/06/19 13:35 Wound - Leg, Right Wound Culture - Preliminary Gram negative afsaneh Staphylococcus aureus Laboratory Results 09/07/19 16:49: POC Glucose 204 H 09/07/19 21:28: POC Glucose 197 H 09/08/19 06:50: POC Glucose 143 H 09/08/19 06:59: Sodium 143, Potassium 4.3, Chloride 105, Carbon Dioxide 32.0, Anion Gap 6, BUN 40 H, Creatinine 1.55 H, Estim Creat Clear Calc 41.06, Est GFR (MDRD) Af Amer 57 L, Est GFR (MDRD) Non-Af 47 L, BUN/Creatinine Ratio 25.8 H, Glucose 138 H, Calcium 8.6 09/08/19 11:15: POC Glucose 217 H Discharge Diet: Low fat/ Low Cholesterol, 8 Cup Fluid Restriciton, 2000 mg Sodium Diet, Carb Control Diet Discharge Activity: Return to Normal Activity Call your doctor if you observe: Shortness of breath, Dizziness, Fainting spells, Chest pain Disposition: Home with Home Health Minutes spent on discharge:: 35 Patient Condition:: Stable Medical Necessity - Tobacco Use Smoking Status: Former smoker Tobacco Use: Cigars Inpatient E&M: 88883 Disch Hosp
--- NOTE | 2019-09-08 12:41 | CASEMGMT ---
DIANA HENRY NOTE: Pt being discharged today. PT/OT notes reviewed. Additional therapy recommended. Pt is PWB LLE and has wounds to BLE w/daily dressing changes. DIANA HENRY to room to talk with pt and to discuss discharge planning/needs with pt. Pt states would like [facility]. Pt states his and dtr would be agreeable to learn how to do wound care/drsg changes. Given list of local [facility] agencies and 1st choice is [facility]. Call placed to [facility] and VM message left w/referral. Call received back from [facility] and they are able to accept pt. She is aware pt is being discharged today and that pt states family would be agreeable to teaching/wound care. Pt made aware [facility] able to accept pt and that they will contact him to arrange start of care. Home O2 testing has been completed. Pt does not qualify for Home O2 at this time. Pt denies having any other needs/concerns at this time. Jazlyn SHEIKH RN, CM
--- NOTE | 2019-09-09 15:04 | CASEMGMT ---
DIANA HENRY Discharge Follow-Up Phone Call. Lace: 12 Strata: 3 Discharge Date: 09/08/19 Adm Dx: Acute Heart Failure Call to pt to inquire about how he has been doing since being discharged from the hospital. Pt states [facility] nurse was @ his home today to start care and they reviewed his medications and wound care/dressing change w/him and family. Pt states he started having some burning/itching to bilat lower legs from knees down last night. He states he did take some Tylenol which alleviated the discomfort some and he has not had to take any more Tylenol for it today. He states he did inform the [facility] nurse about it today as well and they plan on coming back to his home tomorrow. DIANA HENRY advised pt to let them know tomorrow if the symptoms do not resolve or worsen. Pt states he has not applied any other creams/ointments to it, but was wondering if he should. DIANA HENRY advised pt not to apply any additional creams/ointments to it at this time, as he is already having Aquacel AG applied to RLE and has cast on LLE. Pt voices understanding. Reviewed follow-up appts w/pt at this time. Pt states he was not sure what time the appt w/[employer] Kristy Garsia is for. Pt made aware it is @ [id number]. Pt denies having any other questions/concerns about the discharge instructions, medications, or appts. Jazlyn SHEIKH RN, CM
--- OUTSIDE RECORDS SUMMARY | 2020-01-15 09:57 | XMS RPT_ITS | CCD ---
:1945 External Reference #:[id number] Author Organization [facility] Care Team Providers Name Role [...] Onset ceftriaxone rash Severe, Severe 06-19-2016 - [facility] ([id number]) cefTRIAXone Other: See Comments 06-20-2014 - Ashlee richardson [facility] ([id number]) cow milk diarrhea (lactose Moderate, 06-19-2016 - [facility] art Translations: [ intolerant) Moderate Group ([id number] ) MILK] Morphine Hallucinations Severe, Critical 02-28-2005 - [facility] ([id number]) Medications Medication Name Sig Date Prescriber Location Amiodarone amiodarone (PACERONE) 11-26-2017 Morgan Valdez [facility] 200 mg tablet Take 1 (28486) tablet by mouth once daily. 0 11/26/2017 Active Comment: Take 1 tablet by mouth once daily. amLODIPine AMLODIPINE BESYLATE 5 MG TABS One 09-06-2013 [facility] (08723) tablet by mouth daily AMLODIPINE BESYLATE [id number] Melany Khanna PA-C AMLODIPINE BESYLATE 10 MG 09-06-2013 Melany Restrepo RN [facility] TABS One tablet by mouth (16770) daily AMLODIPINE BESYLATE [id number] Melany Khanna PA-C aspirin Aspirin 81 mg ORAL Tab Take 06-10-2011 Morgan Veeselina [facility] 1 tablet by mouth once (4469 1) daily. Take with food. 30 tablet 11 07/07/2011 Active ASPIRIN 81 MG TABS One tablet by mouth twice 06-10-2011 [facility] (00712) daily ASPIRIN [id number] Rahul Anaya MD ASPIRIN 81 MG TABS One tablet by mouth daily 06-10-2011 [facility] (28909) ASPIRIN [id number] Kath Esquivel MD ASPIRIN 81 MG TABS One tablet by mouth twice 06-10-2011 [facility] (44236) daily ASPIRIN [id number] Rahul Anaya MD ASPIRIN EC 81 MG TBEC One tablet by mouth 06-10-2011 [facility] (96824) daily ASPIRIN [id number] Jessica Odom RN ASPIRIN 325 MG TABS One tablet by mouth 07-16-2010 [facility] (34994) daily ASPIRIN [id number] Tracee Beard Comment: Take 1 tablet by mouth once daily. Take with food. Back Brace misc [facility] 01-31-2018 Morgan Rosado [facility] Indications: Class 2 (15301) severe obesity due to excess calories with serious comorbidity and body mass index (BMI) of 38.0 to 38.9 in adult ([facility]) , Facet arthritis of lumbar region 1 Device once daily as needed. size large 1 Each 0 01/31/2018 Active [facility] [place]ications: Class 01-31-2018 Morgan Valdez [facility] (63615) 2 severe obesity due to excess calories with serious comorbidity and body mass index (BMI) of 38.0 to 38.9 in adult ([facility]) , Facet arthritis of lumbar region 1 Device once daily as needed. size large 1 Each 0 01/31/2018 Active Back Brace misc Indications: Class 01-31-2018 Morgan A [facility] ([id number]) 2 severe obesity due to excess calories with serious comorbidity and body mass index (BMI) of 38.0 to 38.9 in adult (HCC) , Facet arthritis of lumbar region 1 Device once daily as needed. size large 1 Each 0 01/31/2018 Active Back Brace misc Indications: Class 01-31-2018 [facility] (34586) 2 severe obesity due to excess calories with serious comorbidity and body mass index (BMI) of 38.0 to 38.9 in adult (HCC) , Facet arthritis of lumbar region 1 Device once daily as needed. size large 1 Each 0 01/31/2018 Active Back Brace misc Indications: Class 01-31-2018 [facility] (77041) 2 severe obesity due to excess calories with serious comorbidity and body mass index (BMI) of 38.0 to 38.9 in adult (HCC) , Facet arthritis of lumbar region 1 Device once daily as needed. size large 1 Each 0 01/31/2018 Active Back Brace misc Indications: Class 01-31-2018 [facility] (22286) 2 severe obesity due to excess calories with serious comorbidity and body mass index (BMI) of 38.0 to 38.9 in adult (HCC) , Facet arthritis of lumbar region 1 Device once daily as needed. size large 1 Each 0 01/31/2018 Active Back Brace misc Indications: Class 01-31-2018 [facility] (98705) 2 severe obesity due to excess calories with serious comorbidity and body mass index (BMI) of 38.0 to 38.9 in adult (HCC) , Facet arthritis of lumbar region 1 Device once daily as needed. size large 1 Each 0 01/31/2018 Active Back Brace misc Indications: Class 01-31-2018 [facility] (41780) 2 severe obesity due to excess calories with serious comorbidity and body mass index (BMI) of 38.0 to 38.9 in adult (HCC) , Facet arthritis of lumbar region 1 Device once daily as needed. size large 1 Each 0 01/31/2018 Active Back Brace misc Indications: Class 01-31-2018 Morgan A Cebul [facility] (86728) 2 severe obesity due to excess calories with serious comorbidity and body mass index (BMI) of 38.0 to 38.9 in adult (HCC) , Facet arthritis of lumbar region 1 Device once daily as needed. size large 1 Each 0 01/31/2018 Active Back Brace misc Indications: Class 01-31-2018 Morgan A bul [facility] (38888) 2 severe obesity due to excess calories with serious comorbidity and body mass index (BMI) of 38.0 to 38.9 in adult (HCC) , Facet arthritis of lumbar region 1 Device once daily as needed. size large 1 Each 0 01/31/2018 Active Back Brace misc Indications: Class 01-31-2018 Morgan A [facility] (06441) 2 severe obesity due to excess calories with serious comorbidity and body mass index (BMI) of 38.0 to 38.9 in adult (HCC) , Facet arthritis of lumbar region 1 Device once daily as needed. size large 1 Each 0 01/31/2018 Active Back Brace misc Indications: Class 01-31-2018 Morgan A [facility] (78044) 2 severe obesity due to excess calories with serious comorbidity and body mass index (BMI) of 38.0 to 38.9 in adult (HCC) , Facet arthritis of lumbar region 1 Device once daily as needed. size large 1 Each 0 01/31/2018 Active Back Brace misc Indications: Class 01-31-2018 Morgan A [facility] (09299) 2 severe obesity due to excess calories with serious comorbidity and body mass index (BMI) of 38.0 to 38.9 in adult (HCC) , Facet arthritis of lumbar region 1 Device once daily as needed. size large 1 Each 0 01/31/2018 Active Back Brace misc Indications: Class 01-31-2018 Morgan A [facility] (04184) 2 severe obesity due to excess calories with serious comorbidity and body mass index (BMI) of 38.0 to 38.9 in adult (HCC) , Facet arthritis of lumbar region 1 Device once daily as needed. size large 1 Each 0 01/31/2018 Active Back Brace misc Indications: Class 01-31-2018 Morgan A [facility] (65256) 2 severe obesity due to excess calories with serious comorbidity and body mass index (BMI) of 38.0 to 38.9 in adult (HCC) , Facet arthritis of lumbar region 1 Device once daily as needed. size large 1 Each 0 01/31/2018 Active Back Brace misc Indications: Class 01-31-2018 Morgan Mooney [facility] (27240) 2 severe obesity due to excess calories with serious comorbidity and body mass index (BMI) of 38.0 to 38.9 in adult (HCC) , Facet arthritis of lumbar region 1 Device once daily as needed. size large 1 Each 0 01/31/2018 Active Back Brace misc Indications: Class 01-31-2018 Morgan Mooney [facility] (10245) 2 severe obesity due to excess calories with serious comorbidity and body mass index (BMI) of 38.0 to 38.9 in adult (HCC) , Facet arthritis of lumbar region 1 Device once daily as needed. size large 1 Each 0 01/31/2018 Active Comment: 1 Device once daily as neede d. size large BIPAP BIPAP Initiate BiPAP @ 24- Nik E Mo [facility] cm of water with (68289) humidification. Mask (per patient preference), chin strap, filters, tubing / heated tubing, heated humidity and lifetime supplies. Dx. JESSICA G47.33 327.23 - fax compliance download to [phone] 1 Device 0 09/15/2018 Active BIPAP Initiate BiPAP @ 24/18 cm of 09-15-2018 Nik E [facility] (97158) water with humidification. Mask (per patient preference), chin strap, filters, tubing / heated tubing, heated humidity and lifetime supplies. Dx. JESSICA G47.33 327.23 - fax compliance download to [phone] 1 Device 0 09/15/2018 Active BIPAP Initiate BiPAP @ 24/18 cm of 09-15-2018 Nik E [facility] (79098) water with humidification. Mask (per patient preference), chin strap, filters, tubing / heated tubing, heated humidity and lifetime supplies. Dx. JESSICA G47.33 327.23 - fax compliance download to [phone] 1 Device 0 09/15/2018 Active BIPAP Initiate BiPAP @ 24/18 cm of 09-15-2018 [facility] (36481) water with humidification. Mask (per patient preference), chin strap, filters, tubing / heated tubing, heated humidity and lifetime supplies. Dx. JESSICA G47.33 327.23 - fax compliance download to [phone] 1 Device 0 09/15/2018 Active BIPAP Initiate BiPAP @ 24/18 cm of 09-15-2018 [facility] (31128) water with humidification. Mask (per patient preference), chin strap, filters, tubing / heated tubing, heated humidity and lifetime supplies. Dx. JESSICA G47.33 327.23 - fax compliance download to [phone] 1 Device 0 09/15/2018 Active BIPAP Initiate BiPAP @ 24/18 cm of 09-15-2018 [facility] (19118) water with humidification. Mask (per patient preference), chin strap, filters, tubing / heated tubing, heated humidity and lifetime supplies. Dx. JESSICA G47.33 327.23 - fax compliance download to [phone] 1 Device 0 09/15/2018 Active BIPAP Initiate BiPAP @ 24/18 cm of 09-15-2018 [facility] (79150) water with humidification. Mask (per patient preference), chin strap, filters, tubing / heated tubing, heated humidity and lifetime supplies. Dx. JESSICA G47.33 327.23 - fax compliance download to [phone] 1 Device 0 09/15/2018 Active BIPAP Initiate BiPAP @ 24/18 cm of 09-15-2018 [facility] (17667) water with humidification. Mask (per patient preference), chin strap, filters, tubing / heated tubing, heated humidity and lifetime supplies. Dx. JESSICA G47.33 327.23 - fax compliance download to [phone] 1 Device 0 09/15/2018 Active BIPAP Initiate BiPAP @ 24/18 cm of 09-15-2018 [facility] (99904) water with humidification. Mask (per patient preference), chin strap, filters, tubing / heated tubing, heated humidity and lifetime supplies. Dx. JESSICA G47.33 327.23 - fax compliance download to [phone] 1 Device 0 09/15/2018 Active BIPAP Initiate BiPAP @ 24/18 cm of 09-15-2018 [facility] (09967) water with humidification. Mask (per patient preference), chin strap, filters, tubing / heated tubing, heated humidity and lifetime supplies. Dx. JESSICA G47.33 327.23 - fax compliance download to [phone] 1 Device 0 09/15/2018 Active BIPAP Initiate BiPAP @ 24/18 cm of 09-15-2018 Nik E [facility] (99633) water with humidification. Mask (per patient preference), chin strap, filters, tubing / heated tubing, heated humidity and lifetime supplies. Dx. JESSICA G47.33 327.23 - fax compliance download to [phone] 1 Device 0 09/15/2018 Active BIPAP Initiate BiPAP @ 24/18 cm of 09-15-2018 [facility] (21058) water with humidification. Mask (per patient preference), chin strap, filters, tubing / heated tubing, heated humidity and lifetime supplies. Dx. JESSICA G47.33 327.23 - fax compliance download to [phone] 1 Device 0 09/15/2018 Active BIPAP Initiate BiPAP @ 24/18 cm of 09-15-2018 [facility] (02451) water with humidification. Mask (per patient preference), chin strap, filters, tubing / heated tubing, heated humidity and lifetime supplies. Dx. JESSICA G47.33 327.23 - fax compliance download to [phone] 1 Device 0 09/15/2018 Active BIPAP Initiate BiPAP @ 24/18 cm of 09-15-2018 [facility] (95358) water with humidification. Mask (per patient preference), chin strap, filters, tubing / heated tubing, heated humidity and lifetime supplies. Dx. JESSICA G47.33 327.23 - fax compliance download to [phone] 1 Device 0 09/15/2018 Active BIPAP Initiate BiPAP @ 24/18 cm of 09-15-2018 Nik [facility] (57854) water with humidification. Mask (per patient preference), chin strap, filters, tubing / heated tubing, heated humidity and lifetime supplies. Dx. JESSICA G47.33 327.23 - fax compliance download to [phone] 1 Device 0 09/15/2018 Active BIPAP Initiate BiPAP @ 24/18 cm of 09-15-2018 Nik Quincy [facility] (96384) water with humidification. Mask (per patient preference), chin strap, filters, tubing / heated tubing, heated humidity and lifetime supplies. Dx. JESSICA G47.33 327.23 - fax compliance download to [phone] 1 Device 0 09/15/2018 Active BIPAP Initiate BiPAP @ 24/18 cm of 09-15-2018 Nik E [facility] (70654) water with humidification. Mask (per patient preference), chin strap, filters, tubing / heated tubing, heated humidity and lifetime supplies. Dx. JESSICA G47.33 327.23 - fax compliance download to [phone] 1 Device 0 09/15/2018 Active Comment: Initiate BiPAP @ 24/18 cm of water with humidification. Mask (per patient preference), chin strap, alida ters, tubing / heated tubing, heated humidity and lifetime supplies. Dx. O SA G47.33 327.23 - fax compliance download to [phone] carvedilol carvedilol (COREG) 3.125 09-16-2019 Deniz Payne [facility] mg tablet Take 2 tablets (44 691) by mouth twice daily. for one week starting on 06/20/16 then will be taking 6.25 x 2 daily . 0 09/16/2019 Active COREG 6.25 MG TABS One 06-19-2016 [facility] tablet by mouth twice (97522) daily CARVEDILOL [id number] oJhan Perry MD COREG 3.125 MG TABS One 12-06-2014 - 02-07-2015 Melissa Marks RN [facility] tablet by mouth twice (85296) daily CARVEDILOL [id number] Johan Perry MD Comment: Take 2 tablets by mouth twic e daily. for one week starting on 06/20/16 then will be taking 6.25 x 2 ajay y . cephalexin CEPHALEXIN 500 MG 07-16-2010 - [facility] TABS One tablet by 06-10-2011 Group (44 691) mouth three times daily CEPHALEXIN [id number] Tracee Beard Cholecalciferol Cholecalciferol, 09-16-2019 [facility] Vitamin D[facility], 50 mcg (70267) (2,000 unit) cap Indications: Vitamin D deficiency Take 1 capsule by mouth once daily. 0 09/16/2019 Active Comment: Take 1 capsule by mouth once daily. clopidogrel clopidogrel (PLAVIX) 75 mg 08-29-2019 Morgan Valdez [facility] tablet Indications: (92490) Subsequent non-ST elevation (NSTEMI) myocardial infarction within 4 weeks of initial infarction (HCC) Take 1 tablet by mouth once daily. 90 tablet 3 08/29/2019 Active PLAVIX 75 MG TABS One tablet by mouth daily 03-04-2012 [facility] (26590) CLOPIDOGREL BISULFATE [id number] Rahul Anaya MD Comment: Take 1 tablet by mouth once daily. colestipol COLESTID 1 GM TABS One 11-24-2011 - 01-01-2017 [facility] tablet by mouth twice (06805 ) daily COLESTIPOL HCL [id number] Melany Khanna PA-C COLESTID 1 GM TABS Two 11-24-2011 [facility] tablets by mouth twice Group (44 691) daily COLESTIPOL HCL [id number] Johan Perry MD COLESTID 1 GM TABS One 11-24-2011 [facility] tablet by mouth twice Group (446 91) daily COLESTIPOL HCL [id number] [place] Kevan Perry MD COLESTID 1 GM TABS Two 11-24-2011 [facility] tablets by mouth twice Group (44 691) daily COLESTIPOL HCL [id number] Johan Perry MD COLESTID 1 GM TABS Two 11-24-2011 Vicki Kirkpatrick [facility] tablets by mouth twice Group (44 161) daily COLESTIPOL HCL 74114993912 Johan Perry MD COLESTID 1 GM TABS One 11-24-2011 Riana Francis RN [facility] by mouth twice Group (446 91) daily COLESTIPOL HCL 83187164701 Johan Perry MD COLESTID 1 GM TABS One 11-24-2011 - [facility] by mouth twice 06-19-2016 Group (446 91) daily COLESTIPOL HCL [id number] Johan Perry MD COLESTID 1 GM TABS One 11-24-2011 Melissa Marks RN [facility] by mouth twice Group (446 91) daily COLESTIPOL HCL 50723767809 Johan Perry MD COLESTID 1 GM TABS One 11-24-2011 Riana Francis RN [facility] by mouth twice Group (446 91) daily COLESTIPOL HCL [id number] Johan Perry MD COLESTID 1 GM TABS One 11-24-2011 - [facility] by mouth twice 06-19-2016 Group (446 91) daily COLESTIPOL HCL 85090472431 Johan Perry MD COLESTID 1 GM TABS Two 11-24-2011 Melissa Marks RN [facility] by mouth twice Group (44 481) daily COLESTIPOL HCL 10962515067 Johan Perry MD COLESTID 1 GM TABS Two 11-24-2011 Vicki Kirkpatrick RN [facility] tablets by mouth twice Group (44 871) daily COLESTIPOL HCL 39589453214 Johan Perry MD COLESTID 1 GM TABS One 11-24-2011 Riana Francis RN [facility] by mouth twice Group (443 91) daily COLESTIPOL HCL [id number] Johan Kevan Perry MD COLESTID 1 GM TABS One 11-24-2011 Melissa Jesica Selina RN [facility] by mouth twice Group (446 91) daily COLESTIPOL HCL [id number] Johan Kevan Perry MD COLESTID 1 GM TABS One 11-24-2011 - [facility] by mouth twice 06-19-2016 Group (446 91) daily COLESTIPOL HCL [id number] Johan Kevan Perry MD COLESTID 1 GM TABS Two 11-24-2011 Melissa Marks RN [facility] tablets by mouth twice Group (44 691) daily COLESTIPOL HCL [id number] [place] Kevan Perry MD COLESTID 1 GM TABS Two 11-24-2011 Vicki Kirkpatrick RN [facility] tablets by mouth twice Group (44 691) daily COLESTIPOL HCL [id number] Johan Perry MD COLESTID 1 GM TABS Two 11-24-2011 Melissa Marks RN [facility] tablets by mouth twice Group (44 691) daily COLESTIPOL HCL 63739956077 Johan Perry MD COLESTID 1 GM TABS Two 11-24-2011 Vicki Kirkpatrick RN [facility] tablets by mouth twice Group (44 691) daily COLESTIPOL HCL [id number] [place] Kevan Perry MD COLESTID 1 GM TABS One 11-24-2011 - [facility] by mouth twice 06-19-2016 Group (446 91) daily COLESTIPOL HCL [id number] Johan Kevan Perry MD COLESTID 1 GM TABS One 11-24-2011 Melissa Marks RN [facility] tablet by mouth twice Group (446 91) daily COLESTIPOL HCL [id number] [place] Kevan Perry MD COLESTID 1 GM TABS One 11-24-2011 Riana Francis RN [facility] tablet by mouth twice Group (446 91) daily COLESTIPOL HCL [id number] [place] Kevan Perry MD COLESTID 1 GM TABS Two 11-24-2011 Vicki Kirkpatrick RN [facility] tablets by mouth twice Group (44 661) daily COLESTIPOL HCL [id number] Johan S MD [place] COLESTID 1 GM TABS One 11-24-2011 Melissa Marks RN [facility] by mouth twice Group (447 91) daily COLESTIPOL HCL 08068290641 Johan Kevan Perry MD COLESTID 1 GM TABS Two 11-24-2011 Melissa Marks RN [place] [facility] tablets by mouth twice Group (44 211) daily COLESTIPOL HCL [id number] Johan Perry MD COLESTID 1 GM TABS One 11-24-2011 Riana Francis RN [facility] by mouth twice Group (441 91) daily COLESTIPOL HCL [id number] MD ENRICO RogersSTID 1 GM TABS One 11-24-2011 - [facility] by mouth twice 06-19-2016 Group (446 91) daily COLESTIPOL HCL [id number] Johan Perry MD COLESTID 1 GM TABS One 11-24-2011 Riana Francis RN [facility] by mouth twice Group (446 91) daily COLESTIPOL HCL [id number] [place] S MD [place] COLESTID 1 GM TABS Two 11-24-2011 Vicki Kirkpatrick RN [facility] tablets by mouth twice Group (44 951) daily COLESTIPOL HCL [id number] [place] Kevan Perry MD COLESTID 1 GM TABS One 11-24-2011 Melissa Marks RN [facility] by mouth twice Group (442 91) daily COLESTIPOL HCL [id number] Johan Kevan Perry MD COLESTID 1 GM TABS One 11-24-2011 - [facility] by mouth twice 06-19-2016 Group (446 91) daily COLESTIPOL HCL [id number] [place] Kevan Perry MD COLESTID 1 GM TABS Two 11-24-2011 Melissa Marks RN [place] [facility] tablets by mouth twice Group (44 691) daily COLESTIPOL HCL [id number] Johan Kevan Perry MD COLESTID 1 GM TABS One 11-24-2011 Melissa Jesica Selina RN [facility] by mouth twice Group (446 91) daily COLESTIPOL HCL [id number] [place] Kevan Perry MD COLESTID 1 GM TABS Two 11-24-2011 Vicki Kirkpatrick RN [facility] tablets by mouth twice Group (44 691) daily COLESTIPOL HCL [id number] [place] Perry MD COLESTID 1 GM TABS One 11-24-2011 Riana Mathew Penny RN [facility] tablet by mouth twice Group (446 91) daily COLESTIPOL HCL [id number] Johan Perry MD COLESTID 1 GM TABS Two 11-24-2011 Melissa Marks RN [place] [facility] tablets by mouth twice Group (44 621) daily COLESTIPOL HCL [id number] Johan Perry MD COLESTID 1 GM TABS One 11-24-2011 - [facility] by mouth twice 06-19-2016 Group (446 91) daily COLESTIPOL HCL [id number] Johan Perry MD COLESTID 1 GM TABS Two 11-24-2011 Melissa Marks RN [facility] by mouth twice Group (44 111) daily COLESTIPOL HCL [id number] JohanMD ENRICO SuhSTID 1 GM TABS One 11-24-2011 - [facility] by mouth twice 06-19-2016 Group (446 91) daily COLESTIPOL HCL [id number] Johan Perry MD COLESTID 1 GM TABS One 11-24-2011 Riana Francis RN [place] [facility] by mouth twice Group (446 91) daily COLESTIPOL HCL [id number] Johan Perry MD COLESTID 1 GM TABS Two 11-24-2011 Vicki Kirkpatrick RN [facility] tablets by mouth twice Group (44 691) daily COLESTIPOL HCL 04841624009 Johan Perry MD COLESTID 1 GM TABS One 11-24-2011 Melissa Marks RN [place] [facility] tablet by mouth twice Group (446 91) daily COLESTIPOL HCL [id number] Johan Perry MD COLESTID 1 GM TABS Two 11-24-2011 Vicki Kirkpatrick RN [facility] tablets by mouth twice Group (44 691) daily COLESTIPOL HCL [id number] Johan Perry MD COLESTID 1 GM TABS Two 11-24-2011 Melissa Marks RN [place] [facility] tablets by mouth twice Group (44 691) daily COLESTIPOL HCL [id number] Johan Perry MD COLESTID 1 GM TABS One 11-24-2011 - [facility] by mouth twice 06-19-2016 Group (446 91) daily COLESTIPOL HCL [id number] Johan Perry MD COLESTID 1 GM TABS One 11-24-2011 Melissa Marks RN [facility] by mouth twice Group (446 91) daily COLESTIPOL HCL 11025815446 Johan Perry MD COLESTID 1 GM TABS One 11-24-2011 Riana Francis RN [facility] [place] [facility] by mouth twice Group (446 91) daily COLESTIPOL HCL [id number] Johan Perry MD Comment: Take 1 g by mouth twice ajay y. ezetimibe ZETIA 10 MG TABS One 07-16-2010 - [facility] by mouth daily 08-26-2011 Group (16644) EZETIMIBE [id number] Rahul Anaya MD fenofibrate fenofibrate 08-10-2015 [facility] nanocrystallized (TRICOR) Gr oup (08737) 145 mg tablet Take 1 tablet by mouth once daily. 0 08/28/2015 Active Comment: Take 1 tablet by mouth once daily. flash glucose sensor flash glucose sensor 08-09-2018 [facility] (FREESTYLE ANITRA 14 (FREESTYLE ANITRA 14 ( 72710) DAY SENSOR) kit DAY SENSOR) kit Indications: Type 2 diabetes mellitus with st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, with long-term current use of insulin (HCC) 1 Each four times daily. 1 Kit 08/09/2018 Active flash glucose sensor (FREESTYLE 08-09-2018 [facility] (70158) ANITRA 14 DAY SENSOR) kit Indications: Type 2 diabetes mellitus with st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, with long-term current use of insulin (HCC) 1 Each four times daily. 1 Kit 08/09/2018 Active flash glucose sensor (FREESTYLE 08-09-2018 [facility] (25565) ANITRA 14 DAY SENSOR) kit Indications: Type 2 diabetes mellitus with st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, with long-term current use of insulin (HCC) 1 Each four times daily. 1 Kit 08/09/2018 Active flash glucose sensor (FREESTYLE 08-09-2018 [facility] (99658) ANITRA 14 DAY SENSOR) kit Indications: Type 2 diabetes mellitus with st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, with long-term current use of insulin (HCC) 1 Each four times daily. 1 Kit 08/09/2018 Active flash glucose sensor (FREESTYLE 08-09-2018 [facility] (32791) ANITRA 14 DAY SENSOR) kit Indications: Type 2 diabetes mellitus with st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, with long-term current use of insulin (HCC) 1 Each four times daily. 1 Kit 08/09/2018 Active flash glucose sensor (FREESTYLE 05-13-2019 Morgan A [facility] ([id number]) ANITRA 14 DAY SENSOR) kit Indications: Type 2 diabetes mellitus with st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, with long-term current use of insulin (HCC) 1 Each four times daily. 1 Kit 08/09/2018 Active flash glucose sensor (FREESTYLE 08-09-2018 Morgan A [facility] ([id number]) ANITRA 14 DAY SENSOR) kit Indications: Type 2 diabetes mellitus with st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, with long-term current use of insulin (HCC) 1 Each four times daily. 1 Kit 08/09/2018 Active flash glucose sensor (FREESTYLE 08-09-2018 Morgan [facility] (60152) ANITRA 14 DAY SENSOR) kit Indications: Type 2 diabetes mellitus with st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, with long-term current use of insulin (HCC) 1 Each four times daily. 1 Kit 08/09/2018 Active flash glucose sensor (FREESTYLE 08-09-2018 [facility] (09777) ANITRA 14 DAY SENSOR) kit Indications: Type 2 diabetes mellitus with st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, with long-term current use of insulin (HCC) 1 Each four times daily. 1 Kit 08/09/2018 Active flash glucose sensor (FREESTYLE 08-09-2018 [facility] ([id number]) ANITRA 14 DAY SENSOR) kit Indications: Type 2 diabetes mellitus with st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, with long-term current use of insulin (HCC) 1 Each four times daily. 1 Kit 08/09/2018 Active flash glucose sensor (FREESTYLE 08-09-2018 Morgan A [facility] (56482) ANITRA 14 DAY SENSOR) kit Indications: Type 2 diabetes mellitus with st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, with long-term current use of insulin (HCC) 1 Each four times daily. 1 Kit 08/09/2018 Active flash glucose sensor (FREESTYLE 08-09-2018 Morgan A [facility] (28430) ANITRA 14 DAY SENSOR) kit Indications: Type 2 diabetes mellitus with st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, with long-term current use of insulin (HCC) 1 Each four times daily. 1 Kit 08/09/2018 Active flash glucose sensor (FREESTYLE 08-09-2018 [facility] (55891) ANITRA 14 DAY SENSOR) kit Indications: Type 2 diabetes mellitus with st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, with long-term current use of insulin (HCC) 1 Each four times daily. 1 Kit 08/09/2018 Active flash glucose sensor (FREESTYLE 08-09-2018 Morgan Mooney [facility] (45408) ANITRA 14 DAY SENSOR) kit Indications: Type 2 diabetes mellitus with st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, with long-term current use of insulin (HCC) 1 Each four times daily. 1 Kit 08/09/2018 Active flash glucose sensor (FREESTYLE 08-09-2018 [facility] (34104) ANITRA 14 DAY SENSOR) kit Indications: Type 2 diabetes mellitus with st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, with long-term current use of insulin ([facility]) 1 Each four times daily. 1 Kit 08/09/2018 Active flash glucose sensor (FREESTYLE 08-09-2018 [facility] (71331) ANITRA 14 DAY SENSOR) kit Indications: Type 2 diabetes mellitus with st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, with long-term current use of insulin ([facility]) 1 Each four times daily. 1 Kit 08/09/2018 Active flash glucose sensor (FREESTYLE 08-09-2018 [facility] (66594) ANITRA 14 DAY SENSOR) kit Indications: Type 2 diabetes mellitus with st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, with long-term current use of insulin ([facility]) 1 Each four times daily. 1 Kit 08/09/2018 Active Comment: 1 Each four times daily. furosemide furosemide (LASIX) 40 mg 04-19-2019 [facility] tablet Indications: Acute (4 4691) on chronic systolic congestive heart failure (HCC) Take 1 tablet by mouth twice daily. 60 tablet 04/19/2019 Active LASIX 40 MG TABS One tablet by 03-14-2014 [facility] (12595) mouth twice daily FUROSEMIDE [id number] Vicki Kirkpatrick RN LASIX 40 MG TABS One tablet by 03-14-2014 [facility] (90340) mouth daily FUROSEMIDE [id number] Johan Perry MD LASIX 40 MG TABS One tablet by 03-08-2013 - 09-06-2013 [facility] (59120) mouth daily FUROSEMIDE [id number] Johan Perry MD Comment: Take 1 tablet by mouth twice daily. gabapentin gabapentin (NEURONTIN) 10-27-2019 - Morgan Mooney [facility] 300 mg capsule 02-05-2020 Group ([id number]) Indications: Type 2 diabetes mellitus with diabetic neuropathy, with long-term current use of insulin (HCC) Take 3 capsules by mouth three times daily for 30 days. 270 capsule 0 01/06/2020 02/05/2020 Active GABAPENTIN 100 MG CAPS 6 tablets by mouth 09-06-2013 [facility] (69253) three times a day GABAPENTIN [id number] Joahn Perry MD GABAPENTIN 100 MG CAPS One tablet by mouth 09-06-2013 [facility] (24086) three times daily GABAPENTIN [id number] Melany Khanna PA-C GABAPENTIN 100 MG CAPS One tablet by mouth 09-06-2013 [facility] (03472) daily GABAPENTIN [id number] Melissa Marks RN GABAPENTIN 600 MG TABS One tablet by mouth 09-06-2013 [facility] (26087) three times daily GABAPENTIN [id number] Johan Perry MD Comment: Take 3 capsules by mouth thr ee times daily for 30 days. hydroCHLOROthiazide HYDROCHLOROTHIAZIDE 12.5 MG 10-09-2011 - [facility] TABS One tablet by mouth 12-11-2014 [facility] (40494) daily- STOP replaced by Lasix HYDROCHLOROTHIAZIDE [id number] Melissa Marks RN HYDROCHLOROTHIAZIDE 25 MG TABS One 09-13-2010 - 06-10-2011 [facility] tablet by mouth daily (25802) HYDROCHLOROTHIAZIDE [id number] Tracee Beard insulin glargine insulin glargine 01-09-2020 [facility] (BASAGLAR KWIKPEN U-[facility] Grou p (19591) INSULIN) 100 unit/mL (3 mL) Inject 36 Units subcutaneously every 12 hours. 0 01/09/2020 Active LANTUS 100 UNIT/ML SOLN take as 08-26-2011 [facility] (63401) directed INSULIN GLARGINE [id number] Rahul Anaya MD LANTUS 100 UNIT/ML SOLN take as 08-26-2011 [facility] (97429) directed INSULIN GLARGINE [id number] Rahul Anaya MD LANTUS 100 UNIT/ML SOLN take as 08-26-2011 [facility] (69379) directed INSULIN GLARGINE [id number] Rahul Anaya MD LANTUS 100 UNIT/ML SOLN take as 08-26-2011 [facility] (08034) directed INSULIN GLARGINE [id number] Rahul Anaya MD LANTUS 100 UNIT/ML SOLN take as 08-26-2011 [facility] (35069) directed INSULIN GLARGINE [id number] Rahul Anaya MD LANTUS 100 UNIT/ML SOLN take as 08-26-2011 [facility] (62967) directed INSULIN GLARGINE [id number] Rahul Anaya MD LANTUS 100 UNIT/ML SOLN take as 08-26-2011 [facility] (39105) directed INSULIN GLARGINE [id number] Rahul Anaya MD LANTUS 100 UNIT/ML SOLN take as 08-26-2011 [facility] (86707) directed INSULIN GLARGINE [id number] Rahul Anaya MD LANTUS 100 UNIT/ML SOLN take as 08-26-2011 [facility] (35270) directed INSULIN GLARGINE [id number] Rahul Anaya MD LANTUS 100 UNIT/ML SOLN take as 08-26-2011 [facility] (03603) directed INSULIN GLARGINE [id number] Rahul Anaya MD LANTUS 100 UNIT/ML SOLN take as 08-26-2011 [facility] (45017) directed INSULIN GLARGINE [id number] Rahul Anaya MD insulin glargine (BASAGLAR KWIKPEN [facility] Provider [facility] (73304) U-100 INSULIN) 100 unit/mL (3 mL) Inject 34 Units subcutaneously every 12 hours. 0 Active insulin glargine (BASAGLAR KWIKPEN [facility] Provider [facility] (41779) U-100 INSULIN) 100 unit/mL (3 mL) Inject 30 Units subcutaneously every 12 hours. 0 Active Comment: Inject 30 Units subcutaneous ly every 12 hours. Inject 34 Units subcutaneous ly every 12 hours. Inject 36 Units subcutaneous ly every 12 hours. insulin lispro insulin lispro (HUMALOG 01-09-2020 [facility] KWIKPEN INSULIN) 100 (40238) unit/mL Inject 21 Units subcutaneously three times daily before meals. Plus sliding scale as directed ( 1 unit for every 50 mg/dL above 150 mg/dL) 0 01/09/2020 Active HUMALOG 100 UNIT/ML SOLN 12-11-[address] [facility] units sq tid before meals (55996 ) INSULIN LISPRO (HUMAN) [id number] Melissa Marks RN HUMALOG 100 UNIT/ML SOLN 12-11-[address] [facility] units sq before meals (59655) INSULIN LISPRO (HUMAN) [id number] Johan Perry MD HUMALOG 100 UNIT/ML SOLN 12-11-[address] [facility] units sq before meals (64869) INSULIN LISPRO (HUMAN) [id number] Johan Perry MD HUMALOG 100 UNIT/ML SOLN 12-11-[address] [facility] units sq before meals (94342) INSULIN LISPRO (HUMAN) [id number] Johan Perry MD HUMALOG 100 UNIT/ML SOLN 12-11-[address] [facility] units sq before meals (21034) INSULIN LISPRO (HUMAN) [id number] Johan Perry MD HUMALOG 100 UNIT/ML SOLN 12-11-[address] [facility] units sq before meals (86970) INSULIN LISPRO (HUMAN) [id number] Johan Perry MD HUMALOG 100 UNIT/ML SOLN 12-11-[address] [facility] units sq before meals (13093) INSULIN LISPRO (HUMAN) [id number] Johan Perry MD HUMALOG 100 UNIT/ML SOLN 12-11-[address] [facility] units sq before meals (83214) INSULIN LISPRO (HUMAN) [id number] Johan Perry MD HUMALOG 100 UNIT/ML SOLN 12-11-[address] [facility] units sq before meals (71057) INSULIN LISPRO (HUMAN) [id number] Johan Perry MD HUMALOG 100 UNIT/ML SOLN 12-11-[address] [facility] units sq before meals (38855) INSULIN LISPRO (HUMAN) [id number] Johan Perry MD HUMALOG 100 UNIT/ML SOLN 12-11-[address] [facility] units sq before meals (16431) INSULIN LISPRO (HUMAN) [id number] Johan Perry MD HUMALOG 100 UNIT/ML SOLN 12-11-[address] [facility] units sq before meals (13912) INSULIN LISPRO (HUMAN) [id number] Johan Perry MD HUMALOG 100 UNIT/ML SOLN 12-11-[address] [facility] units sq before meals (39518) INSULIN LISPRO (HUMAN) [id number] Johan Perry MD HUMALOG 100 UNIT/ML SOLN 12-11-[address] [facility] units sq before meals (01095) INSULIN LISPRO (HUMAN) [id number] Johan Perry MD HUMALOG 100 UNIT/ML SOLN 12-11-[address] [facility] units sq before meals (57984) INSULIN LISPRO (HUMAN) [id number] Johan Perry MD HUMALOG 100 UNIT/ML SOLN 12-11-[address] [facility] units sq before meals (02734) INSULIN LISPRO (HUMAN) [id number] Johan Perry MD HUMALOG 100 UNIT/ML SOLN 12-11-[address] [facility] units sq before meals (46431) INSULIN LISPRO (HUMAN) [id number] Johan Perry MD HUMALOG 100 UNIT/ML SOLN 12-11-[address] [facility] units sq before meals (12748) INSULIN LISPRO (HUMAN) [id number] Johan Perry MD HUMALOG 100 UNIT/ML SOLN 12-11-[address] [facility] units sq before meals (04707) INSULIN LISPRO (HUMAN) [id number] Johan Perry MD HUMALOG 100 UNIT/ML SOLN 12-11-[address] [facility] units sq before meals (02681) INSULIN LISPRO (HUMAN) [id number] Johan Perry MD HUMALOG SOLN Take as 07-16-2010 - 08-26-2011 [facility] directed (35574) INSULIN LISPRO (HUMAN) SOLN [id number] Rahul Anaya MD HUMALOG SOLN Take as 07-16-2010 [facility] directed INSULIN (446 91) LISPRO (HUMAN) SOLN [id number] Tracee Beard HUMALOG SOLN Take as 07-16-2010 [facility] directed INSULIN (446 91) LISPRO (HUMAN) SOLN [id number] Tracee Beard HUMALOG SOLN Take as 07-16-2010 - 08-26-2011 [facility] directed (40579) INSULIN LISPRO (HUMAN) SOLN [id number] Rahul Anaya MD HUMALOG SOLN Take as 07-16-2010 - 08-26-2011 [facility] directed (09087) INSULIN LISPRO (HUMAN) SOLN [id number] Rahul Anaya MD HUMALOG SOLN Take as 07-16-2010 [facility] directed INSULIN (446 91) LISPRO (HUMAN) SOLN [id number] Tracee Beard HUMALOG SOLN Take as 07-16-2010 [facility] directed INSULIN (446 91) LISPRO (HUMAN) SOLN [id number] Tracee Beard HUMALOG SOLN Take as 07-16-2010 - 08-26-2011 [facility] directed (27791) INSULIN LISPRO (HUMAN) SOLN [id number] Rahul Anaya MD HUMALOG SOLN Take as 07-16-2010 - 08-26-[facility] (24594) INSULIN LISPRO (HUMAN) SOLN [id number] Rahul Anaya MD HUMALOG SOLN Take as 07-16-2010 [facility] directed INSULIN (446 91) LISPRO (HUMAN) SOLN [id number] Tracee Beard HUMALOG SOLN Take as 07-16-2010 - 08-26-2011 [facility] directed (97523) INSULIN LISPRO (HUMAN) SOLN [id number] Rahul Anaya MD HUMALOG SOLN Take as 07-16-2010 [facility] directed INSULIN (446 91) LISPRO (HUMAN) SOLN [id number] Tracee Beard HUMALOG SOLN Take as 07-16-2010 [facility] directed INSULIN (446 91) LISPRO (HUMAN) SOLN [id number] Tracee Beard HUMALOG SOLN Take as 07-16-2010 - 08-26-2011 [facility] directed (76569) INSULIN LISPRO (HUMAN) SOLN [id number] Rahul Anaya MD HUMALOG SOLN Take as 07-16-2010 [facility] directed INSULIN (446 91) LISPRO (HUMAN) SOLN [id number] Tracee Beard HUMALOG SOLN Take as 07-16-2010 - 08-26-2011 [facility] directed (14223) INSULIN LISPRO (HUMAN) SOLN [id number] Rahul Anaya MD HUMALOG SOLN Take as 07-16-2010 - 08-26-2011 [facility] directed (29189) INSULIN LISPRO (HUMAN) SOLN [id number] Rahul Anaya MD HUMALOG SOLN Take as 07-16-2010 [facility] directed INSULIN (446 91) LISPRO (HUMAN) SOLN [id number] Tracee Beard HUMALOG SOLN Take as 07-16-2010 [facility] directed INSULIN (446 91) LISPRO (HUMAN) SOLN [id number] Tracee Beard HUMALOG SOLN Take as 07-16-2010 - 08-26-2011 [facility] directed (77940) INSULIN LISPRO (HUMAN) SOLN [id number] Rahul Anaya MD HUMALOG SOLN Take as 07-16-2010 - 08-26-2011 [facility] directed (61986) INSULIN LISPRO (HUMAN) SOLN [id number] Rahul Anaya MD HUMALOG SOLN Take as 07-16-2010 [facility] directed INSULIN (446 91) LISPRO (HUMAN) SOLN [id number] Tracee Roblesward HUMALOG SOLN Take as 07-16-2010 - 08-26-2011 [facility] directed (75974) INSULIN LISPRO (HUMAN) SOLN [id number] Rahul Anaya MD HUMALOG SOLN Take as 07-16-2010 [facility] directed INSULIN (446 91) LISPRO (HUMAN) SOLN [id number] Tracee Beard HUMALOG SOLN Take as 07-16-2010 [facility] directed INSULIN (446 91) LISPRO (HUMAN) SOLN [id number] Tracee Beard HUMALOG SOLN Take as 07-16-2010 - 08-26-2011 [facility] directed (06386) INSULIN LISPRO (HUMAN) SOLN [id number] Rahul Anaya MD HUMALOG SOLN [facility]-16[facility] (446 91) LISPRO (HUMAN) SOLN [id number] Tracee Beard HUMALOG SOLN Take as 07-16-2010 - 08-26-2011 [facility] directed (98420) INSULIN LISPRO (HUMAN) SOLN [id number] Rahul Anaya MD HUMALOG SOLN Take as 07-16-[facility]UL[facility] (446 91) LISPRO (HUMAN) SOLN [id number] Tracee Beard HUMALOG SOLN Take as 07-16-2010 - 08-26-2011 [facility] directed (44138) INSULIN LISPRO (HUMAN) SOLN [id number] Rahul Anaya MD HUMALOG SOLN Take as 07-16-2010 - 08-26-2011 [facility] directed (35420) INSULIN LISPRO (HUMAN) SOLN [id number] Rahul Anaya MD HUMALOG SOLN [facility]UL[facility] (446 91) LISPRO (HUMAN) SOLN [id number] Tracee Beard insulin lispro (HUMALOG [facility] KWIKPEN INSULIN) 100 unit/mL (44 [...] [facility] UNIT/ML SOPN as directed (44 401) INSULIN GLULISINE [id number] Vicki Kirkpatrick RN APIDRA SOLOSTAR 100 UNIT/ML SOPN 12-11-2014 [facility] (25177) as directed INSULIN GLULISINE [id number] Vicki Kirkpatrick RN APIDRA SOLOSTAR 100 UNIT/ML SOPN 12-11-2014 [facility] (21943) as directed INSULIN GLULISINE [id number] Vicki Kirkpatrick RN APIDRA SOLOSTAR 100 UNIT/ML SOPN 12-11-2014 [facility] (06099) as directed INSULIN GLULISINE [id number] Vicki Kirkpatrick RN APIDRA SOLOSTAR 100 UNIT/ML SOPN 12-11-2014 [facility] (46435) as directed INSULIN GLULISINE [id number] Vicki Kirkpatrick RN APIDRA SOLOSTAR 100 UNIT/ML SOPN 12-11-2014 [facility] (97639) as directed INSULIN GLULISINE [id number] Vicki Kirkpatrick RN APIDRA SOLOSTAR 100 UNIT/ML SOPN 12-11-2014 [facility] (23735) as directed INSULIN GLULISINE [id number] Vicki Kirkpatrick RN APIDRA SOLOSTAR 100 UNIT/ML SOPN 12-11-2014 [facility] (38047) as directed INSULIN GLULISINE [id number] Vicki Kirkpatrick RN APIDRA SOLOSTAR 100 UNIT/ML SOPN 12-11-2014 [facility] (05702) as directed INSULIN GLULISINE [id number] Vicki Kirkpatrick RN APIDRA SOLOSTAR 100 UNIT/ML SOPN 12-11-2014 [facility] (82785) as directed INSULIN GLULISINE [id number] Vicki Kirkpatrick RN APIDRA SOLOSTAR 100 UNIT/ML SOPN 12-11-2014 [facility] (33276) as directed INSULIN GLULISINE [id number] Vicki Kirkpatrick RN APIDRA SOLN take as directed 08-26-2011 [facility] (57868) INSULIN GLULISINE SOLN [id number] Rahul Anaya MD APIDRJesica SOLN take as directed 08-26-2011 - 12-27-2014 [facility] (11944) INSULIN GLULISINE SOLN [id number] MD CRYSTAL RogersDRJesica SOLN take as directed 08-26-2011 [facility] (53858) INSULIN GLULISINE SOLN [id number] Rahul ROJASDRJesica SOLN take as directed 08-26-2011 - 12-27-2014 [facility] (96923) INSULIN GLULISINE SOLN [id number] MD RADHA Rogers SOLN take as directed 08-26-2011 - 12-27-2014 [facility] (27658) INSULIN GLULISINE SOLN [id number] MD RADHA Rogers SOLN take as directed 08-26-2011 [facility] (41253) INSULIN GLULISINE SOLN [id number] Rahul GARCIA SOLN take as directed 08-26-2011 - 12-27-2014 [facility] (24388) INSULIN GLULISINE SOLN [id number] MD RADHA Rogers SOLAshwin take as directed 08-26-2011 [facility] (81009) INSULIN GLULISINE SOLN [id number] Rahul ESCOBEDO take as directed 08-26-2011 [facility] (36256) INSULIN GLULISINE SOLN [id number] Rahul ESCOBEDO take as directed 08-26-2011 - 12-27-2014 [facility] (08184) INSULIN GLULISINE SOLN [id number] MD RADHA Rogers take as directed 08-26-2011 [facility] (13830) INSULIN GLULISINE SOLN [id number] Rahul GARCIA SOLAshwin take as directed 08-26-2011 - 12-27-2014 [facility] (14554) INSULIN GLULISINE SOLN [id number] MD RADHA Rogers take as directed 08-26-2011 - 12-27-2014 [facility] (82565) INSULIN GLULISINE SOLN [id number] MD RADHA Rogers take as directed 08-26-2011 [facility] (50843) INSULIN GLULISINE SOLN [id number] Rahul ESCOBEDO take as directed 08-26-2011 - 12-27-2014 [facility] (93219) INSULIN GLULISINE SOLN [id number] MD RADHA Rogers take as directed 08-26-2011 [facility] (39323) INSULIN GLULISINE SOLN [id number] Rahul ESCOBEDO take as directed 08-26-2011 [facility] (33324) INSULIN GLULISINE SOLN [id number] Rahul GARCIA SOLAshwin take as directed 08-25-2011 - 12-27-2014 [facility] (66567) INSULIN GLULISINE SOLN [id number] MD RADHA Rogers SOLN take as directed 08-26-2011 [facility] (28979) INSULIN GLULISINE SOLN [id number] Rahul GARCIA SOLAshwin take as directed 08-26-2011 - 12-27-2014 [facility] (16606) INSULIN GLULISINE SOLN [id number] MD RADHA Rogers SOLN take as directed 08-26-2011 - 12-27-2014 [facility] (28942) INSULIN GLULISINE SOLN [id number] MD RADHA Rogers SOLN take as directed 08-26-2011 [facility] (83473) INSULIN GLULISINE SOLN [id number] Rahul GARCIA SOLAshwin take as directed 08-26-2011 - 12-27-2014 [facility] (45101) INSULIN GLULISINE SOLN [id number] MD RADHA Rogers SOLAshwin take as directed 08-26-2011 [facility] (79934) INSULIN GLULISINE SOLN [id number] Rahul GARCIA SOLAshwin take as directed 08-26-2011 - 12-27-2014 [facility] (32873) INSULIN GLULISINE SOLN [id number] MD RADHA Rogers SOLN take as directed 08-26-2011 [facility] (28183) INSULIN GLULISINE SOLN [id number] Rahul GARCIA SOLAshwin take as directed 08-26-2011 [facility] (29340) INSULIN GLULISINE SOLN [id number] Rahul GARCIA SOLN take as directed 08-26-2011 - 12-27-2014 [facility] (37851) INSULIN GLULISINE SOLN [id number] MD RADHA Rogers SOLAshwin take as directed 08-26-2011 [facility] (40731) INSULIN GLULISINE SOLN [id number] Rahul GARCIA SOLAshwin take as directed 08-26-2011 - 12-27-2014 [facility] (51320) INSULIN GLULISINE SOLN [id number] MD RADHA Rogers SOLN take as directed 08-26-2011 - 12-27-2014 [facility] (94235) INSULIN GLULISINE SOLN [id number] MD RADHA Rogers SOLAshwin take as directed 08-26-2011 [facility] (49769) INSULIN GLULISINE SOLN [id number] Rahul Anaya MD insulin, insulin NPH injection 10-13-2019 - Deniz valerio isophane (HumuLIN N,NovoLIN N) 12-12-2019 [facility], 32 units subcutaneous LLC (4 4691) before breakfast and 32 units at bedtime 0 10/13/2019 12/12/2019 Discontinued (Changing Therapy/Dosage Form) HUMULIN N 100 UNIT/ML SUSP take as 08-26-2011 [facility], [facility] directed INSULIN ISOPHANE (32608) HUMAN [id number] Johan Perry MD HUMULIN N 100 UNIT/ML SUSP take as 08-26-2011 [facility] directed INSULIN ISOPHANE (99773) HUMAN [id number] Johan Perry MD Comment: 32 units subcutaneous before breakfast and 32 units at bedtime isosorbide isosorbide mononitrate ER 09-22-2014 [facility] (IMDUR) 30 mg 24 hr tablet ( 65578) Take 60 mg by mouth once daily. 0 06/05/2016 Active ISOSORBIDE MONONITRATE ER 60 MG 09-22-2014 [facility] (77843) [id number] One tablet by mouth daily ISOSORBIDE MONONITRATE [id number] Vicki Kirkpatrick RN ISOSORBIDE MONONITRATE ER 60 MG 09-22-2014 - 02-07-2015 [facility] (94991) [id number] One tablet by mouth twice daily ISOSORBIDE MONONITRATE [id number] Vicki Kirkpatrick RN ISOSORBIDE MONONITRATE ER 60 MG 09-22-2014 [facility] (83116) [id number] One tablet by mouth daily- this was increased from 30 mg ISOSORBIDE MONONITRATE [id number] RAUL TimmonsC Comment: Take 60 mg by mouth once rustam ly. isosorbide ISORDIL TITRADOSE 06-27-2011 - Rahul Ludwig art dinitrate TABS 20mg, One 08-26-2011 [facility] (4469 1) tablet by mouth three times daily ISOSORBIDE DINITRATE TABS [id number] Rahul Anaya MD ISORDIL TITRADOSE TABS 20mg, One 06-26-2011 - 08-26-2011 [facility] (48339) tablet by mouth three times daily ISOSORBIDE DINITRATE TABS [id number] Rahul Anaya MD lansoprazole PREVACID 30 MG CPDR As 07-16-2010 - 06-09-2011 [facility] needed (13064) LANSOPRAZOLE [id number] Rahul Anaya MD PREVACID 30 MG CPDR As needed 07-16-2010 - 06-10-2011 [facility] (72989) LANSOPRAZOLE [id number] Tracee Beard latanoprost latanoprost (XALATAN) 0.005 % [facility] Provide r [facility] (58027) ophthalmic solution Use 1 Drop in both [...] r [facility] tablet by mouth daily (84492) LISINOPRIL [id number] Johan Perry MD LISINOPRIL 20 MG TABS 06-10-2011 [facility] art Group LISINOPRIL (51451) [id number] Johan Perry MD LISINOPRIL 20 MG TABS One 06-10-2011 Melany Khanna [facility] tablet by mouth twice daily PA-C (446 91) LISINOPRIL [id number] Melany Khanna, PA-C Comment: Take 1 tablet by mouth once daily. meclizine MECLIZINE HCL 12.5 MG 12-16-2010 - [facility]S One tablet by 07-03-2015 Group (44 691) mouth three times daily MECLIZINE HCL [id number] Melissa Marks RN metFORMIN METFORMIN HCL 500 MG 09-27-2014 [facility] One tablet by Group (44 691) mouth twice daily METFORMIN HCL [id number] Melany Khanna, PA-C metOLazone METOLAZONE 2.5 MG 08-20-2016 - [facility]S One tablet by 09-04-2016 RN Group ([phone]) mouth three times a week. Take 30 minutes prior to morning lasix dose METOLAZONE [id number] Johan Perry MD metoprolol TOPROL XL 100 MG 12-15-2011 Melissa Marks RN [facility] [id number] One tablet Group ( 61249) by mouth daily METOPROLOL SUCCINATE [id number] Johan Perry MD TOPROL XL 100 MG 12-15-2011 - [facility] [id number] One tablet by 12-11-2014 Group (4 4691) mouth daily- STOP replaced by coreg METOPROLOL SUCCINATE [id number] Melany Khanna PA-C TOPROL XL 100 MG 12-15-2011 Melissa Marks RN [facility] [id number] One tablet by Group (4 4691) mouth daily METOPROLOL SUCCINATE [id number] Johan Perry MD TOPROL XL 100 MG 12-15-2011 - [facility] [id number] One tablet by 12-11-2014 Group (4 4691) mouth daily- STOP replaced by coreg METOPROLOL SUCCINATE [id number] Melissa Marks RN TOPROL XL 100 MG 12-15-2011 [facility] [id number] One tablet by Group (4 4691) mouth daily- STOP replaced by coreg METOPROLOL SUCCINATE [id number] Melany Khanna PA-C TOPROL XL 100 MG 12-15-2011 Melissa Marks RN [facility] [id number] One tablet by Group (4 4691) mouth daily METOPROLOL SUCCINATE [id number] Johan Perry MD TOPROL XL 100 MG 12-15-2011 [facility] [id number] One tablet by Group (4 4691) mouth daily- STOP replaced by coreg METOPROLOL SUCCINATE 88107650703 Melany Khanna PA-C TOPROL XL 100 MG 12-15-2011 - [facility] [id number] One tablet by 12-11-2014 Group (4 4691) mouth daily- STOP replaced by coreg METOPROLOL SUCCINATE 19872896903 Melissathi Marks RN TOPROL XL 100 MG 12-15-2011 - [facility] [id number] One tablet by 12-11-2014 Group (4 4691) mouth daily- STOP replaced by coreg METOPROLOL SUCCINATE 21205802060 Melissathi Marks RN TOPROL XL 100 MG 12-15-2011 Melissa A Selina RN [facility] [id number] One tablet by Group (4 4691) mouth daily METOPROLOL SUCCINATE [id number] Johan Perry MD TOPROL XL 100 MG 12-15-2011 [facility] [id number] One tablet by Group (4 4691) mouth daily- STOP replaced by coreg METOPROLOL SUCCINATE [id number] Melany Khanna PA-C TOPROL XL 100 MG 12-15-2011 - [facility] [id number]-[id number] One tablet by 12-11-2014 Group (4 4691) mouth daily- STOP replaced by coreg METOPROLOL SUCCINATE 22055920826 Melissa A Selina RN TOPROL XL 100 MG 12-15-2011 Melissa Mooney Selina RN [facility] [id number] One tablet by Group (4 4691) mouth daily METOPROLOL SUCCINATE 13358173671 Johan Perry MD TOPROL XL 100 MG 12-15-2011 [facility] [id number] One tablet by Group (4 4691) mouth daily- STOP replaced by coreg METOPROLOL SUCCINATE 62390100793 Melany Khanna PA-C TOPROL XL 100 MG 12-15-2011 - [facility] [id number]-[id number] One tablet by 12-11-2014 Group (4 4691) mouth daily- STOP replaced by coreg METOPROLOL SUCCINATE 86651351558 Melissa A Selina RN TOPROL XL 100 MG 12-15-2011 [facility] [id number] One tablet by Group (4 4691) mouth daily- STOP replaced by coreg METOPROLOL SUCCINATE 45655178144 Melany Khanna PA-C TOPROL XL 100 MG 12-15-2011 Melissa Mooney Selina ORTIZ [facility] [id number] One tablet by Group (4 4691) mouth daily METOPROLOL SUCCINATE 40733773046 Johan Perry MD TOPROL XL 100 MG 12-15-2011 Melissa Mooney Selina ORTIZ [facility] [id number] One tablet by Group (4 4691) mouth daily METOPROLOL SUCCINATE 31827672582 Johan Perry MD TOPROL XL 100 MG 12-15-2011 [facility] [id number] One tablet by Group (4 4691) mouth daily- STOP replaced by coreg METOPROLOL SUCCINATE 56639414796 Melany Khanna PA-C TOPROL XL 100 MG 12-15-2011 - [facility] [id number] One tablet by 12-11-2014 Group (4 4691) mouth daily- STOP replaced by coreg METOPROLOL SUCCINATE [id number] Melissa Mooney Selina ORTIZ TOPROL XL 100 MG 12-15-2011 - [facility] [id number]-IEB One tablet by 12-11-2014 Group (4 4691) mouth daily- STOP replaced by coreg METOPROLOL SUCCINATE 68666635971 Melissa Mooney Selina RN TOPROL XL 100 MG 12-15-2011 Melissa Jesica Selina ORTIZ [facility] [id number] One tablet by Group (4 4691) mouth daily METOPROLOL SUCCINATE 28590790648 Johan Perry MD TOPROL XL 100 MG 12-15-2011 [facility] [id number] One tablet by Group (4 4691) mouth daily- STOP replaced by coreg METOPROLOL SUCCINATE 54718280563 Melany Khanna PA-C TOPROL XL 100 MG 12-15-2011 [facility] [id number] One tablet by Group (4 4691) mouth daily- STOP replaced by coreg METOPROLOL SUCCINATE [id number] Melany Khanna PA-C TOPROL XL 100 MG 12-15-2011 - [facility] [id number] One tablet by 12-11-2014 Group (4 4691) mouth daily- STOP replaced by coreg METOPROLOL SUCCINATE 75279994803 Melissa Marks RN TOPROL XL 100 MG 12-15-2011 Melissa Marks RN [facility] [id number]-[id number] One tablet by Group (4 4691) mouth daily METOPROLOL SUCCINATE [id number] Johan Perry MD TOPROL XL 100 MG 12-15-2011 [facility] [id number] One tablet by Group (4 4691) mouth daily- STOP replaced by coreg METOPROLOL SUCCINATE 10515513334 Melany Khanna PA-C TOPROL XL 100 MG 12-15-2011 - [facility] GW60F-CNP One tablet by 12-11-2014 Group (4 4691) mouth daily- STOP replaced by coreg METOPROLOL SUCCINATE 48757024892 Melissa Marks RN TOPROL XL 100 MG 12-15-2011 Melissa Marks RN [facility] [id number]-DQE One tablet by Group (4 4691) mouth daily METOPROLOL SUCCINATE [id number] Johan Perry MD TOPROL XL 50 MG 08-26-2011 Rahul Allen [facility] [id number]-[id number] (METOPROLOL Nicomaritza SIMMONS Group ([phone]) SUCCINATE) one tablet by mouth twice a day Rahul Anaya MD TOPROL XL 50 MG 08-26-2011 Rahul Allen [facility] [id number]-YCS (METOPROLOL Héctor SIMMONS Group ([phone]) SUCCINATE) one tablet by mouth twice a day Rahul Anaya MD TOPROL XL 50 MG 08-26-2011 Rahul Allen [facility] [id number] (METOPROLOL Nicomaritza SIMMONS Group ([phone]) SUCCINATE) one tablet by mouth twice a day Rahul Anaya MD TOPROL XL 50 MG 08-26-2011 Rahul Allen [facility] [id number] (METOPROLOL Nicomaritza SIMMONS Group ([phone]) SUCCINATE) one tablet by mouth twice a day Rahul Anaya MD TOPROL XL 50 MG 08-26-2011 Rahul Allen [facility] [id number] (METOPROLOL Nicolozaaretha SIMMONS Group (446 91) SUCCINATE) one tablet by mouth twice a day Rahul Anaya MD TOPROL XL 50 MG 08-26-2011 Rahul Allen [facility] [id number]-[id number] (METOPROLOL Nicolozaaretha SIMMONS Group (446 91) SUCCINATE) one tablet by mouth twice a day Rahul Anaya MD TOPROL XL 50 MG 08-26-2011 Rahul Allen [facility] [id number]-SPV (METOPROLOL Nicolozaaretha SIMMONS Group (446 91) SUCCINATE) one tablet by mouth twice a day Rahul Anaya MD TOPROL XL 50 MG 08-26-2011 Rahul Allen [facility] [id number] (METOPROLOL Nicolozaaretha SIMMONS Group (446 91) SUCCINATE) one tablet by mouth twice a day Rahul Anaya MD TOPROL XL 50 MG 08-26-2011 Rahul Allen [facility] [id number] (METOPROLOL Nicolozaaretha SIMMONS Group ([phone]) SUCCINATE) one tablet by mouth twice a day Rahul Anaya MD TOPROL XL 50 MG 08-26-2011 Rahul Allen [facility] [id number] (METOPROLOL Nicolozaaretha SIMMONS Group (446 91) SUCCINATE) one tablet by mouth twice a day Rahul Anaya MD TOPROL XL 50 MG 08-26-2011 Rahul Allen [facility] [id number] (METOPROLOL Nicolozaaretha SIMMONS Group (446 91) SUCCINATE) one tablet by mouth twice a day Rahul Anaya MD TOPROL XL 50 MG 08-26-2011 Rahul Allen [facility] [id number] (METOPROLOL Nicolozakes Group (446 91) SUCCINATE) one tablet by mouth twice a day Rahul Anaya MD TOPROL XL 50 MG 08-26-2011 Rahul Allen [facility] [id number] (METOPROLOL Nicolozaaretha SIMMONS Group ([phone]) SUCCINATE) one tablet by mouth twice a day Rahul Anaya MD TOPROL XL 50 MG 08-26-2011 Rahul Allen [facility] [id number] (METOPROLOL Nicolopanchito SIMMONS Group ([phone]) SUCCINATE) one tablet by mouth twice a day Rahul Anaya MD TOPROL XL 50 MG 08-26-2011 Rahul Allen [facility] [id number] (METOPROLOL Nicolozaaretha SIMMONS Group ([phone]) SUCCINATE) one tablet by mouth twice a day Rahul Anaya MD TOPROL XL 50 MG 08-26-2011 Rahul Allen [facility] [id number] (METOPROLOL Nicolozaaretha SIMMONS Group ([phone]) SUCCINATE) one tablet by mouth twice a day Rahul Anaya MD TOPROL XL 100 MG 06-10-2011 - [facility] [id number] 07-03-2011 Group (4469 1) METOPROLOL SUCCINATE [id number] Rahul Anaya MD TOPROL XL 100 MG 06-10-2011 - [facility] [id number] 07-03-2011 Group (4469 1) METOPROLOL SUCCINATE [id number] Funmilayo Morales RN TOPROL XL 50 MG 07-16-2010 [facility] [id number] One tablet by Group (4 4691) mouth twice daily METOPROLOL SUCCINATE 23645268734 Tracee Beard TOPROL XL 50 MG 07-16-2010 [facility] [id number] One tablet by Group (4 4691) mouth twice daily METOPROLOL SUCCINATE 43648286046 Tracee Cordova Beard TOPROL XL 50 MG 07-16-2010 [facility] [id number]-RQJ One tablet by Group (4 4691) mouth twice daily METOPROLOL SUCCINATE 18020828869 Tracee Beard TOPROL XL 50 MG 07-16-2010 [facility] [id number]-XNP One tablet by Group (4 4691) mouth twice daily METOPROLOL SUCCINATE 47447287685 Tracee Cordova Beard TOPROL XL 50 MG 07-16-2010 [facility] [id number]-TVH One tablet by Group (4 4691) mouth twice daily METOPROLOL SUCCINATE 09826300736 Tracee Cordova Beard TOPROL XL 50 MG 07-16-2010 [facility] [id number] One tablet by Group (4 4691) mouth twice daily METOPROLOL SUCCINATE 98643326752 Tracee Cordova Beard TOPROL XL 50 MG 07-16-2010 [facility] [id number]-YTX One tablet by Group (4 4691) mouth twice daily METOPROLOL SUCCINATE 80402732679 Tracee Cordova Beard TOPROL XL 50 MG 07-16-2010 [facility] [id number]-[id number] One tablet by Group (4 4691) mouth twice daily METOPROLOL SUCCINATE 77819704347 Tracee Cordova Beard TOPROL XL 50 MG 07-16-2010 [facility] [id number]-PHR One tablet by Group (4 4691) mouth twice daily METOPROLOL SUCCINATE 89823770681 Tracee Cordova Beard TOPROL XL 50 MG 07-16-2010 [facility] [id number]-DCW One tablet by Group (4 4691) mouth twice daily METOPROLOL SUCCINATE 80006121357 Tracee Beard niacin NIACIN ER 1000 MG CR-TABS 09-22-2014 - 11-03-2014 [facility] One tablet by mouth daily (4 4691) NIACIN [id number] Johan Perry MD NIASPAN 1000 MG CR-TABS One 07-16-2010 - [facility] tablet by mouth twice daily 11-25-2012 Grou p (85949) NIACIN (ANTIHYPERLIPIDEMIC) [id number] Johan Perry MD NIASPAN 1000 MG CR-TABS One 07-16-2010 - [facility] tablet by mouth twice daily 11-25-2012 Grou p (57733) NIACIN (ANTIHYPERLIPIDEMIC) 75713043631 Johan Perry MD nitroglycerin NITRO-DUR 0.2 MG/HR 08-26-2011 - Funmilayo Morales RN [facility] PT24 on every morning 11-25-2012 Group ([id number]) off qhs NITROGLYCERIN [id number] Rahul Anaya MD NITRO-DUR 0.2 MG/HR PT24 08-25-2011 - 11-25-2012 [facility] on every morning off qhs (24040) NITROGLYCERIN [id number] Johan Perry MD NITRO-DUR 0.2 MG/HR PT24 08-26-2011 Funmilayo Morales RN [facility] on every morning off qhs (55819) NITROGLYCERIN [id number] Rahul Anaya MD NITRO-DUR 0.2 MG/HR PT24 08-25-2011 - 11-25-2012 [facility] on every morning off qhs (80812) NITROGLYCERIN [id number] Johan Perry MD NITRO-DUR 0.2 MG/HR PT24 08-26-2011 Funmilayo Morales RN [facility] on every morning off qhs (99725) NITROGLYCERIN [id number] Rahul Anaya MD NITRO-DUR 0.2 MG/HR PT24 08-25-2011 - 11-25-2012 [facility] on every morning off qhs (89946) NITROGLYCERIN [id number] Johan Perry MD NITRO-DUR 0.2 MG/HR PT24 08-26-2011 Funmilayo Morales RN [facility] on every morning off qhs (44952) NITROGLYCERIN [id number] Rahul Anaya MD NITRO-DUR 0.2 MG/HR PT24 08-25-2011 - 11-25-2012 [facility] on every morning off qhs (31678) NITROGLYCERIN [id number] Johan Perry MD NITRO-DUR 0.2 MG/HR PT24 08-26-2011 [facility] on every morning off qhs (77869) NITROGLYCERIN [id number] Rahul Anaya MD NITRO-DUR 0.2 MG/HR PT24 08-25-2011 - 11-25-2012 [facility] on every morning off qhs (01812) NITROGLYCERIN [id number] Johan Perry MD NITRO-DUR 0.2 MG/HR PT24 08-26-2011 [facility] on every morning off qhs (50441) NITROGLYCERIN [id number] Rahul Anaya MD NITRO-DUR 0.2 MG/HR PT24 08-25-2011 - 11-25-2012 [facility] on every morning off qhs (77586) NITROGLYCERIN [id number] Johan Perry MD NITRO-DUR 0.2 MG/HR PT24 08-26-2011 [facility] on every morning off qhs (87560) NITROGLYCERIN [id number] Rahul Anaya MD NITRO-DUR 0.2 MG/HR PT24 08-26-2011 [facility] on every morning off qhs (77244) NITROGLYCERIN [id number] Rahul Anaya MD NITRO-DUR 0.2 MG/HR PT24 08-25-2011 - 11-25-2012 [facility] on every morning off qhs (76518) NITROGLYCERIN [id number] Johan Perry MD NITRO-DUR 0.2 MG/HR PT24 08-26-2011 [facility] on every morning off qhs (35048) NITROGLYCERIN [id number] Rahul Anaya MD NITRO-DUR 0.2 MG/HR PT24 08-25-2011 - 11-25-2012 [facility] on every morning off qhs (36405) NITROGLYCERIN [id number] Johan Perry MD NITRO-DUR 0.2 MG/HR PT24 08-25-2011 - 11-25-2012 [facility] on every morning off qhs (87547) NITROGLYCERIN [id number] Johan Perry MD NITRO-DUR 0.2 MG/HR PT24 08-26-2011 Funmilayo Morales RN [facility] on every morning off qhs (72222) NITROGLYCERIN [id number] Rahul Anaya MD NITROGLYCERIN 0.2 MG/HR 12-16-2010 - 06-27-2011 [facility] PT24 Patch, on Q AM, off Q ([phone] 1) HS NITROGLYCERIN [id number] Rahul Anaya MD NITROSTAT 0.4 MG SUBL 1 07-16-2010 [facility] tablet under tongue every (49838 ) 5 min up to 3 X NITROGLYCERIN [id number] Kath Esquivel MD NITROGLYCERIN 0.3 MG 02-28-2005 [facility] rt Group SUBLINGUAL TAB Dissolve (55893) 0.4 mg under the tongue. Usual dose for angina is 1 tablet every 5 minutes for maximum of 3 doses in 15 minutes. 0 02/28/2005 Active Comment: Dissolve 0.4 mg under the to ngue. Usual dose for angina is 1 tablet every 5 minutes for maximum of 3 doses in 15 minutes. Nortriptyline nortriptyline (PAMELOR) 11-16-2019 Morgan Valdez [facility] 25 mg capsule (10810) Indications: Type 2 diabetes mellitus with peripheral neuropathy (HCC) Take 1 capsule by mouth daily at bedtime. 30 capsule 5 11/16/2019 Active Comment: Take 1 capsule by mouth ajay y at bedtime. nph insulin, human HUMULIN N 100 UNIT/ML SUSP 08-26-2011 [facility] take as directed (12386) INSULIN ISOPHANE HUMAN [id number] Johan Perry MD HUMULIN N 100 UNIT/ML SUSP take as directed 08-26-2011 [facility] (86254) INSULIN ISOPHANE HUMAN [id number] Johan Perry MD HUMULIN N 100 UNIT/ML SUSP take as directed 08-26-2011 [facility] (29451) INSULIN ISOPHANE HUMAN [id number] Johan Perry MD HUMULIN N 100 UNIT/ML SUSP take as directed 08-26-2011 [facility] (58280) INSULIN ISOPHANE HUMAN [id number] Johan Perry MD HUMULIN N 100 UNIT/ML SUSP take as directed 08-26-2011 [facility] (79776) INSULIN ISOPHANE HUMAN [id number] Johan Perry MD HUMULIN N 100 UNIT/ML SUSP take as directed 08-26-2011 [facility] (94394) INSULIN ISOPHANE HUMAN [id number] Johan Perry MD HUMULIN N 100 UNIT/ML SUSP take as directed 08-26-2011 [facility] (72189) INSULIN ISOPHANE HUMAN [id number] Johan Perry MD HUMULIN N 100 UNIT/ML SUSP take as directed 08-26-2011 [facility] (40381) INSULIN ISOPHANE HUMAN [id number] Johan Perry MD HUMULIN N 100 UNIT/ML SUSP take as directed 08-26-2011 [facility] (51223) INSULIN ISOPHANE HUMAN [id number] Johan Perry MD HUMULIN N 100 UNIT/ML SUSP take as directed 08-26-2011 [facility] (70700) INSULIN ISOPHANE HUMAN [id number] Johan Perry MD omeprazole PRILOSEC 40 MG CPDR One tablet by 08-26-2011 [facility] (87916) mouth twice daily.11 OMEPRAZOLE [id number] Rahul Anaya MD OMEPRAZOLE 20 MG CPDR One tablet by mouth 08-26-2011 [facility] (41019) twice daily OMEPRAZOLE [id number] Vicki Kirkpatrick RN OMEPRAZOLE 20 MG CPDR One tablet by mouth 08-26-2011 [facility] (00248) daily OMEPRAZOLE [id number] Johan Perry MD PRILOSEC 40 MG CPDR One tablet by mouth 08-26-2011 [facility] (00796) twice daily.11 OMEPRAZOLE [id number] Rahul Anaya MD PRILOSEC 40 MG CPDR One tablet by mouth 08-26-2011 [facility] (38016) twice daily.11 OMEPRAZOLE [id number] Rahul Anaya MD PRILOSEC 40 MG CPDR .12 06-10-2011 [facility] (91122) OMEPRAZOLE [id number] Rahul Anaya MD PRILOSEC 40 MG CPDR .12 06-10-2011 [facility] (93013) OMEPRAZOLE [id number] Rahul Anaya MD PRILOSEC 40 MG CPDR .12 06-10-2011 [facility] (80267) OMEPRAZOLE [id number] Rahul Anaya MD Ondansetron ZOFRAN 8 MG TABS 1 12-30-2016 - [facility] tablet by mouth every 01-01-2017 Group ([id number]) 8 hours as needed ONDANSETRON HCL [id number] Melany Khanna PA-C pantoprazole PANTOPRAZOLE SODIUM 08-26-2011 Melany Marks [facility] 40 MG TBEC One tablet [facility] (94346) by mouth daily PANTOPRAZOLE SODIUM [id number] Melany M Khanna, PA-C Comment: Take 40 mg by mouth once rustam ly. potassium chloride KLOR-CON M10 10 MEQ 10-09-2011 - [facility] CR-TABS One tablet by 09-04-2016 (49299 ) mouth daily POTASSIUM CHLORIDE GISELE CR [id number] MD LIANE RogersCON M10 10 MEQ 10-09-2011 [facility] CR-TABS One tablet by (83879) mouth daily POTASSIUM CHLORIDE GISELE CR [id number] MD LIANE RogersCON M10 10 MEQ 10-09-2011 Melany [facility] CR-TABS One tablet by RN (47384) mouth daily POTASSIUM CHLORIDE GISELE CR [id number] MD LIANE RogersCON M10 10 MEQ 10-09-2011 Melissa [facility] CR-TABS One tablet by (92708) mouth daily POTASSIUM CHLORIDE GISELE CR [id number] MD LIANE RogersCON M10 10 MEQ 10-09-2011 - [facility] CR-TABS One tablet by 09-04-2016 (09535) mouth daily POTASSIUM CHLORIDE GISELE CR [id number] MD LIANE RogersCON M10 10 MEQ 10-09-2011 [facility] CR-TABS One tablet by RN (87556) mouth daily POTASSIUM CHLORIDE GISELE CR [id number] MD LIANE RogersCON M10 10 MEQ 10-09-2011 - [facility] CR-TABS One tablet by 09-04-2016 (20730) mouth daily POTASSIUM CHLORIDE GISELE CR [id number] MD LIANE RogersCON M10 10 MEQ 10-09-2011 [facility] CR-TABS One tablet by DRAGAN (09351) mouth daily POTASSIUM CHLORIDE GISELE CR [id number] [place] MD LIANE ZuletaCON M10 10 MEQ 10-09-2011 [facility] CR-TABS One tablet by (82326) mouth daily POTASSIUM CHLORIDE GISELE CR [id number] Johan MD LIANE ZuletaCON M10 10 MEQ 10-09-2011 [facility] CR-TABS One tablet by (57752) mouth daily POTASSIUM CHLORIDE GISELE CR [id number] JohanMD LIANE SuhCON M10 10 MEQ 10-09-2011 Mel[facility] CR-TABS One tablet by RN (26390) mouth daily POTASSIUM CHLORIDE GISELE CR [id number] MD LIANE RogersCON M10 10 MEQ 10-09-2011 - [facility] CR-TABS One tablet by 09-04-2016 (02478) mouth daily POTASSIUM CHLORIDE GISELE CR [id number] [place] MD LIANE ZuletaCON M10 10 MEQ 10-09-2011 Melany Cosme [facility] CR-TABS One tablet by RN (83196) mouth daily POTASSIUM CHLORIDE GISELE CR [id number] MD LIANE RogersCON M10 10 MEQ 10-09-2011 [facility] CR-TABS One tablet by (36973) mouth daily POTASSIUM CHLORIDE GISELE CR [id number] MD LIANE RogersCON M10 10 MEQ 10-09-2011 [facility] CR-TABS One tablet by (10386) mouth daily POTASSIUM CHLORIDE GISELE CR [id number] MD LIANE RogersCON M10 10 MEQ 10-09-2011 Mel[facility] CR-TABS One tablet by DRAGAN (00512) mouth daily POTASSIUM CHLORIDE GISELE CR [id number] MD LIANE RogersCON M10 10 MEQ 10-09-2011 Melany Cosme [facility] CR-TABS One tablet by RN (25870) mouth daily POTASSIUM CHLORIDE GISELE CR [id number] MD LIANE RogersCON M10 10 MEQ 10-09-2011 [facility] CR-TABS One tablet by (93254) mouth daily POTASSIUM CHLORIDE GISELE CR [id number] MD LIANE RogersCON M10 10 MEQ 10-09-2011 [facility] CR-TABS One tablet by (84205) mouth daily POTASSIUM CHLORIDE GISELE CR [id number] MD LIANE RogersCON M10 10 MEQ 10-09-2011 Melany [facility]me [facility] CR-TABS One tablet by RN (11756) mouth daily POTASSIUM CHLORIDE GISELE CR [id number] MD LIANE RogersCON M10 10 MEQ 10-09-2011 [facility] CR-TABS One tablet by (35178) mouth daily POTASSIUM CHLORIDE GISELE CR [id number] MD LIANE RogersCON M10 10 MEQ 10-09-2011 Melany Cosme [facility] CR-TABS One tablet by RN (52067) mouth daily POTASSIUM CHLORIDE GISELE CR [id number] MD LIANE RogersCON M10 10 MEQ 11-25-2010 - [facility] CR-TABS One tablet by 09-04-2016 RN (80623) mouth daily POTASSIUM CHLORIDE GISELE CR [id number] Johan Perry MD ramipril ALTACE 10 MG CAPS One 07-16-2010 - 06-10-2011 [facility] tablet by mouth twice daily (52138) RAMIPRIL [id number] Rahul Anaya MD ALTACE 10 MG CAPS One tablet by 07-16-2010 - 06-09-2011 [facility] (84210) mouth twice daily RAMIPRIL [id number] Rahul Anaya MD ranolazine ranolazine SR (RANEXA) 02-15-[address] [facility] 1,000 mg Tb12 Take 1 (16302) tablet by mouth twice daily. 0 05/04/2016 Active RANEXA 500 MG [id number]-SAT 02-15-2016 Melissa Marks RN [facility] One tablet by mouth (32736) twice daily RANOLAZINE [id number] Beverly Henry TECHNICAL PROJECT MANAGER RANEXA 500 MG [id number] 02-15-2016 Melissa Marks RN [facility] One tablet by mouth (91631) twice daily RANOLAZINE [id number] Beverly Henry TECHNICAL PROJECT MANAGER RANEXA 1000 MG [id number] 02-15-[address] [facility] One tablet by mouth RN (36149) twice daily RANOLAZINE [id number] Melany Khanna PA-C RANEXA 500 MG [id number] 02-15-2016 Melissa Marks RN [facility] One tablet by mouth (29400) twice daily RANOLAZINE [id number] Beverly Henry NP RANEXA 1000 MG [id number] 02-15-[address] [facility] One tablet by mouth RN (37546) twice daily RANOLAZINE 83547043456 Melany Khanna PA-C RANEXA 500 MG [id number] 02-15-2016 Melissa Marks RN [facility] One tablet by mouth (07753) twice daily RANOLAZINE [id number] Beverly Henry TECHNICAL PROJECT MANAGER RANEXA 1000 MG [id number]-[id number] 02-15-[address] [facility] One tablet by mouth RN (40901) twice daily RANOLAZINE [id number] Melany Khanna PA-C RANEXA 1000 MG [id number] 02-15-[address] [facility] One tablet by mouth RN (04252) twice daily RANOLAZINE [id number] Melany Khanna PA-C RANEXA 500 MG [id number] 02-15-2016 Melissa Marks RN [facility] One tablet by mouth (25820) twice daily RANOLAZINE [id number] Beverly Henry TECHNICAL PROJECT MANAGER RANEXA 500 MG [id number] 02-15-2016 [facility] One tablet by mouth (07076) twice daily RANOLAZINE [id number] Beverly Henry TECHNICAL PROJECT MANAGER RANEXA 1000 MG [id number] 02-15-[address] [facility] One tablet by mouth RN (08245) twice daily RANOLAZINE [id number] Melany Khanna PA-C RANEXA 500 MG [id number] 02-15-2016 [facility] One tablet by mouth (71220) twice daily RANOLAZINE [id number] Beverly Henry TECHNICAL PROJECT MANAGER RANEXA 1000 MG [id number] 02-15-[address] [facility] One tablet by mouth RN (79542) twice daily RANOLAZINE [id number] Melany Khanna PA-C RANEXA 1000 MG [id number] 02-15-[address] [facility] One tablet by mouth RN (98615) twice daily RANOLAZINE [id number] Melany Khanna PA-C RANEXA 500 MG [id number] 02-15-2016 [facility] One tablet by mouth (72975) twice daily RANOLAZINE [id number] Beverly Henry TECHNICAL PROJECT MANAGER RANEXA 1000 MG [id number] 02-15-[address] [facility] One tablet by mouth RN (00395) twice daily RANOLAZINE [id number] Melany Khanna PA-C RANEXA 500 MG [id number] 02-15-2016 Melissa Marks RN [facility] One tablet by mouth ([id number]) twice daily RANOLAZINE [id number] Beverly Henry TECHNICAL PROJECT MANAGER RANEXA 1000 MG [id number] 02-15-[address] [facility] One tablet by mouth RN (17758) twice daily RANOLAZINE [id number] Melany Khanna PA-C RANEXA 500 MG [id number] 02-15-2016 Melissa Marks RN [facility] One tablet by mouth (34068) twice daily RANOLAZINE [id number] Beverly Henry TECHNICAL PROJECT MANAGER RANEXA 500 MG [id number] 02-07-2015 - [facility] One tablet by mouth 07-03-2015 (94486) twice daily RANOLAZINE [id number] Johan Perry MD RANEXA 500 MG [id number] 02-07-2015 - [facility] One tablet by mouth 07-03-2015 (29733) twice daily RANOLAZINE [id number] Johan Perry MD RANEXA 500 MG [id number] 02-07-2015 Jessica Odom RN [facility] One tablet by mouth (09927) twice daily RANOLAZINE [id number] Johan Perry MD RANEXA 500 MG [id number] 02-07-2015 Jessica Odom RN [facility] One tablet by mouth (83349) twice daily RANOLAZINE [id number] Johan Perry MD RANEXA 500 MG [id number] 02-07-2015 - [facility] One tablet by mouth 07-03-2015 (99382) twice daily RANOLAZINE [id number] Johan Perry MD RANEXA 500 MG [id number] 02-07-2015 Jessica Odom RN [facility] One tablet by mouth (20020) twice daily RANOLAZINE [id number] Johan Perry MD RANEXA 500 MG [id number] 02-07-2015 - [facility] One tablet by mouth 07-03-2015 (45416) twice daily RANOLAZINE [id number] Johan Perry MD RANEXA 500 MG [id number] 02-07-2015 - [facility] One tablet by mouth 07-03-2015 (39536) twice daily RANOLAZINE [id number] Johan Perry MD RANEXA 500 MG [id number] 02-07-2015 Jessica Odom RN [facility] One tablet by mouth (25973) twice daily RANOLAZINE [id number] Johan Perry MD RANEXA 500 MG [id number] 02-07-2015 Jessica Odom RN [facility] One tablet by mouth (07474) twice daily RANOLAZINE [id number] Johan Perry MD RANEXA 500 MG [id number] 02-07-2015 - [facility] One tablet by mouth 07-03-2015 (73957) twice daily RANOLAZINE [id number] Johan Perry MD RANEXA 500 MG [id number] 02-07-2015 - [facility] One tablet by mouth 07-03-2015 (55910) twice daily RANOLAZINE [id number] Johan Perry MD RANEXA 500 MG [id number] 02-07-2015 Jsesica Odom RN [facility] One tablet by mouth (93547) twice daily RANOLAZINE [id number] Johan Perry MD RANEXA 500 MG [id number] 02-07-2015 Jessica Odom RN [facility] One tablet by mouth (81835) twice daily RANOLAZINE [id number] Johan Perry MD RANEXA 500 MG [id number] 02-07-2015 - [facility] One tablet by mouth 07-03-2015 (68051) twice daily RANOLAZINE [id number] Johan Perry MD RANEXA 500 MG [id number] 02-07-2015 - [facility] One tablet by mouth 07-03-2015 (85258) twice daily RANOLAZINE [id number] Johan Perry MD RANEXA 500 MG [id number] 02-07-2015 Jessica Odom RN [facility] One tablet by mouth (01551) twice daily RANOLAZINE [id number] Johan Perry MD RANEXA 500 MG [id number] 02-07-2015 - [facility] One tablet by mouth 07-03-2015 (50398) twice daily RANOLAZINE [id number] Johan Perry MD RANEXA 500 MG [id number] 02-07-2015 Jessica Odom RN [facility] One tablet by mouth (11199) twice daily RANOLAZINE [id number] Johan Perry MD Comment: Take 1 tablet by mouth twice daily. Regular Insulin, insulin regular human 11-08-2019 - Deniz Roy [facility] Human (NOVOLIN R REGULAR 12-12-2019 (27012) U-100 INSULN) 100 unit/mL injection Indications: Type 2 diabetes mellitus with st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, with long-term current use of insulin ([facility]) Inject 15 units Subcutaneously three times [...] rOPINIRole rOPINIRole (REQUIP) 0.5 10-20-2019 Morgan Mooney [facility] (18662) mg tablet Take 1 tablet by mouth [...] twice (4 4691) daily SOTALOL HCL AF [id number] Rahul Anaya MD SOTALOL HCL (AF) 80 MG TABS One 07-04-2011 [facility] (18000) tablet by mouth twice daily SOTALOL HCL AF [id number] Funmilayo Morales RN SOTALOL HCL (AF) 80 MG TABS One 07-04-2011 - 03-04-2012 [facility] (10344) tablet by mouth twice daily SOTALOL HCL AF [id number] Rahul Anaya MD SOTALOL HCL (AF) 80 MG TABS One 07-04-2011 [facility] (81780) tablet by mouth twice daily SOTALOL HCL AF [id number] Funmilayo Morales RN SOTALOL HCL (AF) 80 MG TABS One 07-04-2011 [facility] (33912) tablet by mouth twice daily SOTALOL HCL AF [id number] Funmilayo Morales RN SOTALOL HCL (AF) 80 MG TABS One 07-04-2011 - 03-04-2012 [facility] (76262) tablet by mouth twice daily SOTALOL HCL AF [id number] Rahul Anaya MD SOTALOL HCL (AF) 80 MG TABS One 07-04-2011 - 03-04-2012 [facility] (48577) tablet by mouth twice daily SOTALOL HCL AF [id number] Funmilayo Morales RN SOTALOL HCL (AF) 80 MG TABS One 07-04-2011 - 03-04-2012 [facility] (47923) tablet by mouth twice daily SOTALOL HCL AF [id number] Rahul Anaya MD SOTALOL HCL (AF) 120 MG TABS One 07-03-2011 [facility] (23595) tablet by mouth twice daily SOTALOL HCL AF [id number] Funmilayo Morales RN SOTALOL HCL (AF) 120 MG TABS One 07-03-2011 [facility] (99965) tablet by mouth twice daily SOTALOL HCL AF [id number] Funmilayo Morales RN SOTALOL HCL (AF) 120 MG TABS One 07-03-2011 [facility] (55234) tablet by mouth twice daily SOTALOL HCL AF [id number] Funmilayo Morales RN SOTALOL HCL (AF) 120 MG TABS One 07-03-2011 [facility] (09621) tablet by mouth twice daily SOTALOL HCL AF [id number] Funmilayo Morales RN SOTALOL HCL (AF) 120 MG TABS One 07-03-2011 [facility] (51588) tablet by mouth twice daily SOTALOL HCL AF [id number] Funmilayo Morales RN Spironolactone spironolactone 11-26-2017 Morgan Valdez [facility] (ALDACTONE) 25 mg tablet (44 195) Take 1 tablet by mouth once daily. 0 11/26/2017 Active Comment: Take 1 tablet by mouth once daily. traZODone traZODone (DESYREL) 50 09-16-2019 - Deniz Mathur Ady Quintero [facility] mg tablet Indications: 03-14-2020 (4419 5) Sleep difficulties Take 2 tablets by mouth daily at bedtime. 180 tablet 1 09/16/2019 03/14/2020 Active Comment: Take 2 tablets by mouth ajay y at bedtime. warfarin warfarin (COUMADIN) 3 mg 09-01-2019 Morgan Valdez [facility] tablet Indications: Chronic (38744) atrial fibrillation (HCC) 3 mg every Mon, Wed, Fri; 6 mg all other days 150 tablet 3 09/01/2019 Active COUMADIN 1 MG TABS Take as directed 3 08-26-2011 [facility] (59440) tablets by mouth one 5mg tablet to =8mg daily WARFARIN SODIUM [id number] Rahul Anaya MD COUMADIN 1 MG TABS managed by Dr. Hunt 08-26-2011 [facility] (60233) Cebul WARFARIN SODIUM [id number] Johan Perry MD COUMADIN 5 MG TABS managed by Dr. Hunt 08-26-2011 [facility] (66090) Cebul WARFARIN SODIUM [id number] Johan Perry MD COUMADIN 5 MG TABS Take as directed 5mg 08-26-2011 [facility] (63352) daily with three 1mg tablets to =8mg daily WARFARIN SODIUM [id number] Rahul Anaya MD Comment: 3 mg every Mon, Wed, Fri; 6 mg all other days Problems Active Problems Category Problem Name Status Date Location Acute myocardial Subsequent non-ST Active 12-11-2014 - [facility] infarction segment elevation - 06-26-2015 (32653) myocardial infarction - Cardiac dysrhythmias Atrial fibrillation Active 07-16-2010 - [facility] (49917) Conduction disorders Automatic implantable Active [facility] cardiac defibrillator in (44 195) situ Congestive heart Acute on chronic Active 12-17-2018 - [facility] failure; systolic heart failure (4419 5) nonhypertensive 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 - [facility] atherosclerosis and infarction - 06-26-2015 (00434) other heart disease - Diabetes mellitus Type 2 diabetes mellitus Active 06-15-2017 - [facility] without complication (81942) Diseases of white blood Leukocytosis Active 01-29-2013 - [facility] cells (66526) Disorders of lipid Hyperlipidemia Active 07-16-2010 - [facility] metabolism (51655) Esophageal disorders Gastroesophageal reflux Active 8 - [facility] disease (12501) Essential hypertension Essential hypertension Active 07-17-19 11 - [facility] (69021) Hyperplasia of prostate Benign prostatic Active 09-16-2007 - [facility] hypertrophy with outflow (44 195) obstruction Inflammatory conditions Balanitis Active 11-16-2016 - [facility] of male genital organs (4419 5) Other and ill-defined Cardiomegaly Active [facility] heart disease (06048) Other hereditary and Restless legs Active 07-28-2018 - [facility] degenerative nervous (59325) system conditions Other nutritional; Body mass index (BMI) Active 03-08-2013 - [facility] endocrine; and 38.0-38.9, adult (33347) metabolic disorders Other nutritional; Body mass index (BMI) Active 03-08-2013 - [facility] endocrine; and 37.0-37.9, adult (64013) metabolic disorders Other nutritional; Body mass index (BMI) Active 03-08-2013 - [facility] endocrine; and 34.0-34.9, adult (10406) metabolic disorders Other nutritional; Body mass index (BMI) Active 03-08-2013 - [facility] endocrine; and 35.0-35.9, adult [facility] metabolic disorders (41967) Other nutritional; Body mass index (BMI) Active 03-08-2013 - [facility] endocrine; and 36.0-36.9, adult - 03-29-2015 (81601) metabolic disorders - Other nutritional; Obesity Active 09-16-2011 - [facility] endocrine; and (29434) metabolic disorders Residual codes; Obstructive sleep apnea Active 07-26-2018 - [facility] unclassified syndrome (69710) Screening or history of Tobacco dependence Active 07-16-2010 - [facility] mental health and syndrome - 12-30-2016 (69344) substance abuse - Spondylosis; Arthritis of facet joint Active 07-14-2017 - [facility] intervertebral disc of lumbar spine (4419 5) disorders; other back problems Unclassified Type 2 diabetes mellitus Active 03-29-2015 - [facility] with diabetic peripheral (44 691) angiopathy without gangrene Unclassified Anticoagulant effect Active 07-03-2011 - [facility] (38897) Unclassified Placement of stent in Active 07-16-2010 - [facility] coronary artery (89144) Unclassified Long-term drug therapy Active 07-16-2010 - [facility], [facility] (26145) Unclassified Implantation of Active 07-16-2010 - [facility] automatic cardiac (02138) defibrillator Past or Other Problems Category Problem Name Status Date Location Fluid and electrolyte Hypokalemia Completed 08-18-2011 [facility] - - Group ([id number]) 06-26-2015 - Lymphadenitis [facility]37175[facility] Mycoses Onychomycosis due to Completed 06-05-2011 [facility] dermatophyte - (98607) Nonspecific chest pain Chest pain Completed 01-30-2016 [facility] (43923) Other aftercare 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 07-16-2010 [facility] (current) drug therapy - Group (36364) Other and unspecified Benign neoplasm of Completed 02-21-2009 [facility] benign neoplasm colon - (97435) Other circulatory Carotid bruit Completed 03-14-2016 [facility] disease - Group (83924) Other circulatory Low blood pressure Completed 08-18-[address] [facility] disease - - Group (47404) 06-26-2015 - Other diseases of veins Stasis dermatitis Completed 04-05-2013 [facility] and lymphatics - (74909) Other gastrointestinal Dysphagia Completed 03-01-2015 [facility] disorders - (54314) Other hematologic High troponin I level Completed 01-29-2013 [facility] conditions - (85050) Other lower respiratory Dyspnea, unspecified Completed 5 [place] disease - - Medical Service , 06-26-2015 [facility] (51010) - Other lower respiratory Dyspnea on exertion Completed 12-06-2014 [facility] - - Group ([id number]) 06-26-2015 - Other skin disorders Localized swelling, Completed 07-28-2018 [facility] mass and lump, neck - (43202) Other skin disorders Foot callus Completed 10-04-2014 [facility] - (57935) Phlebitis; H/O: Deep vein Completed 01-26-2018 [facility] thrombophlebitis and thrombosis - (73178) thromboembolism Residual codes; Past history of Completed 11-16-2016 [facility] unclassified procedure - (19736) Syncope Vasovagal syncope Completed 12-16-2010 [facility] - - Group ([id number]) 06-26-2015 - Unclassified Family history of Completed 01-26-2018 [facility] stroke - Group (25933) Unclassified Preoperative Completed 11-03-2014 [facility] - - Group (06516) examination 12-25-2014 - Unclassified Type 1 diabetes Completed 07-16-2010 [facility] mellitus with diabetic - - Group ([id number]) peripheral angiopathy 12-30-2016 without gangrene - Results Result Name Value Range Unit Interpretation Flag Date Location obsolete on 2019-12 OBSOLETE Refill (FAMPWS) Normal 01-06-2020 [facility] LOVELY DEVI ([id number]) 1945 [facility] Date Time Provider Department (80717) 01/06/20 MORGAN VALDEZ III FAMPWS During your [...] skin Date Reviewed: 10/27/2019 Reviewed by: Linwood ([facility]) JAZZY Carpenter - Fully Assessed Reason for Visit: Refill Request [94] Visit Diagnosis: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, with long-term current use of insulin ([facility]) [E11.40, Z79.4] Order(s):gabapentin (NEURONTIN) 300 mg [...] by MORGAN VALDEZ III, MD on 01/06/20 [facility]) Normal 12-27-2019 [facility] LOVELY DEVI ([id number]) 1945 [facility] Date Time Provider Department (43475) 12/27/19 MORGAN VALDEZ IIIVIVEK During your visit [...] Fully Assessed Reason for Visit: Patient Question [8027] Prescriptions as of 12/27/2019 Sig: INSULIN LISPRO [...] mouth once ajay * LANCETS Use with Endorph[employer] Glucometer * ASPIRIN 81 MG TABLET Take [...] on 12/28/19 cnpn on 2019-12-20 CNPN Telephone ([facility]) Normal 12-20-2019 [place] [facility] LOVELY DEVI ([id number]) 1945 M [facility] Time Provider Department (83474) 12/20/19 ANDRE (PHARMACIST), LEE COTTER During your visit today, we recorded the following informati on about you: Lee Moss Pharmacist 12/20/2019 5:07 PM Signed Patient was due to test INR today. Will continue to monitor for results. Lee Moss, Pharmacist ANSHUL SEBASTIAN 12/21/2019 9:21 AM Signed [facility] Referring provider: No ref. provider found Lovely Devi is a 74 year old year old male patient being evaluated today for anticoagulation Telemanagement visit. Patient is currently on the following anticoagulant Warfarin Labs PT INR (no units) Date Value 11/26/2018 Test sent to [facility]. 10/16/2017 1.8 01/16/2017 Test sent to [facility]. INR (POCT) (no units) Date Value [...] of liver or green tea, Ensure, Boost, Brightwood Instant Breakfast, Mulit-Vitamins, and V-8. Plan: ? Advised patient to continue with a hig her weekly warfarin dose at this time. ? Next home INR check scheduled on 01/04/2020 ? Patient verbalizes understanding of the plan. JOLEEN CERRATO, PHARMACIST Clinical Pharmacist, Pharmacy Anticoagulation Clinic Pharmacy Anticoagulation Clinic Pager: [phone] Description Patient has 3 mg tablets of warfarin. Patient takes in the m orning. . Allergies As of Date: 12/20/2019 Noted Allergy Reaction MORPHINE 02/28/2005 ROCEPHIN (CEFTRIAXONE SODIUM) 06/20/2014 14 - Other: See Com ments Comments: Hot flashes; redness to skin Date Reviewed: 10/27/2019 Reviewed by: Linwood ([facility]) JAZZY Carpenter - Fully Assessed Reason for [...] mouth once ajay * LANCETS Use with OneEnd[employer] Glucometer * ASPIRIN 81 MG TABLET Take [...] on progress on 2019-11 PROGRESS HNO ID: [id number] Normal 12-15-2019 Amado Author: Denita Thorpe (Pharmacist) Clinic Service: ? Aneudy Author Type: Pharmacist ([id number]) Type: Progress Notes Filed: 12/27/2019 8:49 AM Note Text: TELEPHONIC APPOINTMENT [place] law requires the collaborative practice agreement to [...] manage ment appointment for diabetes. At 09/15 WOUND NURSE?appt,?insulin NPH dose decreased pt was consulted to pharmacy due to increased hypoglycemia.?At last WOUND NURSE visit gabapentin was initiated and empiric treatment for UTI was s tarted with nitrofurantoin monohydrate.?At PharmD visit on?,?ins ulin lispro dose was decreased and patient was recommended to pursue bas al/bolus insulin pens through [facility] [facility] patient assistance. At last PCP appt,?no [...] patient confirmed receiving Basaglar and Humalog from [facility], he was instructed t hat Basaglar would [...] Pharmacy:?[facility] ? Rx coverage:?Medicare ? Affordability:?insulins through [facility] [facility] ? 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 Esophageal Reflux Benign Neoplasm of Colon Dermatophytosis of Nail Atrial Fibrillation (Hcc) Anticoagulated On Coumadin Class 2 Severe Obesity Due to Excess Calories With Serious C omorbidity and Body Mass Index (Bmi) of 38.0 to 38.9 in Adult ([facility]) Stasis Dermatitis of Both Legs Foot Callus Subsequent Non-St Elevation (Nstemi) Myocardial Infarction W ithin 4 Weeks of Initial Infarction ([facility]) Syncope Hyperlipidemia Ldl Goal <100 Ashd (Arteriosclerotic Heart Disease) Neurocardiogenic Syncope 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 , With Long-Term Current Use of Insulin (Hcc) Facet Arthritis of Lumbar Region Adenopathy Atrial Flutter ([facility]) Balanitis Coronary Angioplasty Status Elevated Troponin I [...] of vessel, na tive or graft s/p [place] in 1985 - Diverticulosis of colon (without [...] ventricular tachycardia (HCC) - Snoring - Stroke ([facility]) - Tinea of nail 01/13/2011 - Type 2 diabetes mellitus with stage 3 chronic kidney disea se, with long-term current use of insulin ([facility]) 06/15/2017 - Unspecified essential hypertension ALLERGIES [...] G47.33 327.23 - fax compliance download to [phone] 1 Device 0 - flash glucose sensor [...] once daily. 0 - blood sugar diagnostic ([employer] BLOOD GLUCOSE SYSTEM) test strip Use as [...] PharmD, BCACP Primary Care Clinical Pharmacist [facility] cnov on 2019-12-15 CNOV Office Visit (PHMEWO) Normal 12-15-[address] [place] [address] Clinic LOVELY DEVI ([id number]) 1945 M [place] Date Time Provider Department ([id number]) 12/15/19 10:30 AM KEMI (PHARMACIST)[facility] During your visit today, we recorded the following informati on about you: Anshul Hancock 12/27/2019 8:49 AM Signed TELEPHONIC APPOINTMENT [place] law requires the collaborative practice agreement to [...] pharmacotherapy management appointment for diabetes. At 09/15 WOUND NURSE?appt,?insulin NPH dose decreased pt was consulted to pharmacy due to increased hypoglycemia.?At last WOUND NURSE visit ga bapentin was initiated and empiric treatment for UTI was started with nit rofurantoin monohydrate.?At PharmD visit on?,?insulin lispro dose was decreased and patient was recommended to pursue basal/ bolus insulin pens through [facility] [facility] patient assistance. At last PCP appt,?no [...] Pharmacy:?[facility] ? Rx coverage:?Medicare ? Affordability:?insulins through [employer] [facility] ? 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 0 - blood sugar diagnostic ([employer] BLOOD GLUCOSE SYSTEM) test strip Use as [...] TOUCH ULTRASO FT LANCETS) lancets Use with [facility] Glucometer as directed 100 Each 3 - [...] disease, with long-term current use of insulin ([facility]) - ICD9: 250.40, 585.3, V58.67, ICD10: [...] LisaD, BCACP Primary Care Clinical Pharmacist [facility] Referring Provider: DENIZ GARSIA [[id number]] Allergies As of Date: 12/15/2019 Noted Allergy Reaction MORPHINE 02/28/2005 ROCEPHIN (CEFTRIAXONE SODIUM) 06/20/2014 14 - Other: See Com ments Comments: Hot flashes; redness to skin Date Reviewed: 10/27/2019 Reviewed by: Linwood ([facility]) JAZZY Carpenter - Fully Assessed Reason for Visit: Allied Health Visit [5] Cmt: DM Primary Visit Diagnosis:Type 2 diabetes mellitus with st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, with long-term current use of insulin ([facility]) [E11.22, N18.3, Z79.4] Prescriptions as of [...] 2019-12-09 Anion gap [Moles/Vol] 6 mmol/L 12-09-19 [facility] (45686) BASO ABS 12-09-2019 [facility] (30434) Basophils/100 WBC 12-09-2019 C [facility] (d) (13869) Calcium [Mass/Vol] 8.7 8.8 - 10.5 MG/DL Abnormal 12-09-2019 [facility] MG/DL (31129) Chloride [Moles/Vol] 98 98 - 107 MEQ/L 0 [facility] MEQ/L (97272) Creatinine [Mass/Vol] 1.68 0.6 - 1.3 MG/DL Abnormal 12-09-19 [facility] MG/DL (17012) EOS ABS 12-09-2019 [facility] (20726) Eosinophils/100 WBC 12-09-2019 [facility] (Bld) (44043) Erythrocyte 12-09-2019 [facility] distribution width ( 62894) (RBC) [Ratio] GFR AFR AMER 52 mL/MIN 12-09-2019 [facility] (27416) GFR/1.73 sq 43 mL/MIN 12-09-2019 [facility] M.predicted MDRD (44 195) (S/P/Bld) [Vol rate/Area] Glucose [Mass/Vol] 209 74 - 106 MG/DL Abnormal 12-09-2019 [facility] MG/DL (48404) HCO3 (Bld) [Moles/Vol] 32.0 mmol/L 020 [facility] (01076) Hematocrit (Bld) 38.6 39 - 55 % % Abnormal 12-09-2019 [facility] [Volume fraction] (4 4195) Hemoglobin (Bld) 12.5 14 - 16.5 g/dL Abnormal 12-09-2019 [facility] [Mass/Vol] g/dL (13755) Lymphocytes (d) 12-09-2019 C [facility] [#/Vol] (56097) Lymphocytes/100 WBC 12-09-2019 [facility] (d) (18116) MCH (RBC) [Entitic 29.8 25.4 - 34.6 pg 0 [facility] mass] pg (14586) MCHC (RBC) [Mass/Vol] 32.4 30 - 36 g/dL g/dL 12-08 [facility] (27215) MCV (RBC) [Entitic 91.9 79 - 98 fL fL 12-09-2019 [facility] vol] (47668) MONO ABS 12-09-2019 [facility] (35776) Monocytes/100 WBC 12-09-2019 C [facility] (d) (27573) NEUT ABS 12-09-2019 [facility] (95401) Neutrophils/100 WBC 12-09-2019 [facility] (d) (57820) Platelet mean volume 10.4 7.4 - 10.4 fL fL 12-08 [facility] ([facility]) [Entitic vol] (83541) Platelets (Bld) 168 140 - 440 K/uL 12-09-2019 [facility] [#/Vol] K/uL (59763) Potassium [Moles/Vol] 4.3 3.5 - 5.1 MEQ/L 12-09-19 20 [facility] [facility] MEQ/L ([id number]) RBC (Bld) [#/Vol] 4.20 4 - 6 M/uL M/uL 12-09-2019 [facility] ([id number]) Sodium [Moles/Vol] 136 136 - 145 MEQ/L 12-09-2019 [facility] MEQ/L ([id number]) Urea nitrogen 32 6 - 20 mg/dL mg/dL Abnormal 12-09-2019 [facility] [Mass/Vol] ([id number]) WBC (Bld) [#/Vol] 5.7 3.9 - 11 K/uL K/uL 12-09-19 20 [facility] ([id number]) cnpn on 2019-12-08 CNPN Telephone (FAMPWS) Normal 12-08-2019 [facility] LOVELY DEVI ([id number]) 1945 [facility] Time Provider Department ([id number]) 12/08/19 MORGAN VALDEZ III During your visit today, we recorded the following informati on about you: Tasha Chan RN 12/08/2019 1:08 PM Signed Argelia- OT- [facility]- reporting POC- reports this was a delay of care visit: reports this was a 1 time visit only, patient is doing wel l, Argelai went over breathing techniques for SOB, and [...] skin Date Reviewed: 10/27/2019 Reviewed by: Linwood ([facility]) JAZZY Carpenter - Fully Assessed Reason for Visit: [facility] OT POC [Other] Prescriptions as of 12/08/2019 [...] on 2019-11 OBSOLETE Refill (FAMPWS) Normal 12-07-2019 [facility] LOVELY DEVI ([id number]) 1945 M [facility] Time Provider Department ([id number]) 12/07/19 MORGAN VALDEZ III During your visit [...] skin Date Reviewed: 10/27/2019 Reviewed by: Linwood ([facility]) JAZZY Carpenter - Fully Assessed Reason for [...] III, MD on 12/07/19 yoandy on 2019-12-07 [facility] Telephone (FAMPWS) Normal 12-07-2019 [facility] LOVELY DEVI ([id number]) 1945 [facility] Time Provider Department ([id number]) 12/07/19 MORGAN VALDEZ III [facility] During your visit today, we recorded the following informati on about you: Cindi Eastman LPN 12/07/2019 10:56 AM Signed CARLITOS: Nicole with [facility] PT calling with plan of ca re [...] skin Date Reviewed: 10/27/2019 Reviewed by: Linwood ([facility]) JAZZY Carpenter - Fully Assessed Reason for Visit: Plan of Care [Other] Cmt: [facility] PT Prescriptions as of 12/07/2019 Sig: NORTRIPTYLINE [...] on 2019-12-06 CNPN Telephone (PHAMTE) Normal 12-06-2019 [facility] LOVELY DEVI ([id number]) 1945 M [facility] Time Provider Department ([id number]) 12/06/19 ANDRE (PHARMACIST)LEE During your visit today, we recorded the following informati on about you: Lee Moss, Pharmacist 12/06/2019 3:33 PM Signed [facility]tico[facility] Lovely Devi is a 74 year old year old male patient being evaluated today for anticoagulation Telemanagement visit. Patient is currently on the following anticoagulant Warfarin Labs PT INR (no units) Date Value 11/26/2018 Test sent to [facility]. 10/16/2017 1.8 01/16/2017 Test sent to [facility]. INR (POCT) (no units) Date Value [...] a nd advised to call PAC at [phone] if any questions or changes to report. Would like to try one more time to reach patient. INR 2 weeks ago was low and lef t VM for patient so not sure if he got message. Lee Moss, Pharmacist Clinical Pharmacist, Pharmacy Anticoagulation Clinic Pharmacy Anticoagulation Clinic Pager: [phone] Description Patient has 3 mg tablets of warfarin. Patient takes in the m orning. . Cristina Escobar (Nail Maker) 12/06/2019 5:16 PM Signed Patient called and left message that stated he r eceived a message re: his INR result and dosing but he cou ldn't understand what dose to take of his warfarin. Patient can be reached at [phone]. Cristina Escobar CPhT (Programming Equipment Operator) Pharmacy Anticoagulation Clinic Anshul Marquez 12/06/2019 5:27 PM Signed [facility] Pharmacy Anticoagulation Clinic Referring provider: No ref. provider found Lovely Devi is a 74 year old year old male patient being evaluated today for anticoagulation Telemanagement visit. Patient is currently on the following anticoagulant Warfarin Labs PT INR (no units) Date Value 11/26/2018 Test sent to [facility]. 10/16/2017 1.8 01/16/2017 Test sent to [facility]. INR (POCT) (no units) Date Value [...] Pharmacy Anticoagulation Clinic Pharmacy Anticoagulation Clinic Pager: [phone] Description Patient has 3 mg tablets of warfarin. Patient takes in the m orning. . Allergies As of Date: 12/06/2019 Noted Allergy Reaction MORPHINE 02/28/2005 ROCEPHIN (CEFTRIAXONE SODIUM) 06/20/2014 14 - Other: See Com ments Comments: Hot flashes; redness to skin Date Reviewed: 10/27/2019 Reviewed by: Linwood ([facility]) JAZZY Carpenter - Fully Assessed Reason for [...] (PHARMACIST)GABRIELA on CNPN Telephone (FAMPWS) Normal 12-06-2019 [facility] LOVELY DEVI ([id number]) 1945 M [facility] Date Time Provider Department ([id number]) 12/06/19 MORGAN VALDEZ III During your visit today, we recorded the following informati on about you: Cindi Eastman LPN 12/06/2019 4:51 PM Signed Melissa @ [facility] plan of care and resumption of car [...] skin Date Reviewed: 10/27/2019 Reviewed by: Linwood ([facility]) JAZZY Carpenter - Fully Assessed Reason for [...] mouth once ajay * LANCETS Use with OneEndologixuch Glucometer * ASPIRIN 81 MG TABLET Take [...] [Relative 1.6 2.0 - 3.0 Abnormal 09-0 [facility] ([id number]) time] cnpn on 2019-11-30 CNPN Telephone (PHMEWO) Normal 11-30-2019 [facility] LOVELY DEVI ([id number]) 1945 M [facility] Time Provider Department ([id number]) 11/30/19 KEMI (PHARMACIST)DENITA During your visit today, we recorded the following informati on about you: Cindi Pichardo RN 11/30/2019 12:55 PM Signed Patient wanted Pharmacist Denita aware that his mail cam e today and he did not receive the Basaglar insulin from [employer] in the mail yesterday or today. He was told to call Denita if did not receive insulin. Please review and advise. DRAGAN Valdez, Pharmacist 12/01/2019 3:54 PM Signed Returned call to patient. Pt 's answers phone to state that insulin package was received today. Denita Thorpe, PharmD, BCACP Primary Care Clinical Pharmacist [facility] Allergies As of Date: 11/30/2019 Noted Allergy Reaction MORPHINE 02/28/2005 ROCEPHIN (CEFTRIAXONE SODIUM) 06/20/2014 14 - Other: See Com ments Comments: Hot flashes; redness to skin Date Reviewed: 10/27/2019 Reviewed by: Linwood ([facility]) JAZZY Carpenter - Fully Assessed Reason for [...] on 2019-11-23 CNPN Telephone (PHAMTE) Normal 11-23-2019 [facility] LOVELY DEVI ([id number]) 1945 M [facility] Time Provider Department ([id number]) 11/23/19 BLOSSOM (PHARMACIST)BRIJESH During your visit today, we recorded the following informati on about you: ANSHUL SEBASTIAN 11/23/2019 8:56 AM Signed [facility] Ambulatory [facility] Anticoagulation [facility] Referring provider: No ref. provider found Lovely Devi is a 74 year old year old male patient being evaluated today for anticoagulation Telemanagement visit. Patient is currently on the following anticoagulant Warfarin Labs PT INR (no units) Date Value 11/26/2018 Test sent to [facility]. 10/16/2017 1.8 01/16/2017 Test sent to [facility]. INR (POCT) (no units) Date Value [...] Pharmacy Anticoagulation Clinic Pharmacy Anticoagulation Clinic Pager: [phone] Description Patient has 3 mg tablets of warfarin. Patient takes in the m orning. . Allergies As of Date: 11/23/2019 Noted Allergy Reaction MORPHINE 02/28/2005 ROCEPHIN (CEFTRIAXONE SODIUM) 06/20/2014 14 - Other: See Com ments Comments: Hot flashes; redness to skin Date Reviewed: 10/27/2019 Reviewed by: Linwood ([facility]) JAZZY Carpenter - Fully Assessed Reason for [...] mouth once ajay * LANCETS Use with EndorphMeuch Glucometer * ASPIRIN 81 MG TABLET Take [...] (PHARMACIST)JOLEEN on CNPN Telephone (PHMEWO) Normal 11-23-2019 [place] [facility] LOVELY DEVI ([id number]) 1945 M [place] Date Time Provider Department ([id number]) 11/23/19 KEMI (PHARMACIST)DENITA During your visit today, [...] (to replace Humul in) were sent to [facility] on 10/23. Attempted to call [employer] to flakita nathan, unable to reach installation service representative. Was able to leave voicemail on [...] Thorpe PharmD, BCACP Primary Care Clinical Pharmacist [facility] Denita Thorpe Pharmacist 11/28/2019 4:55 PM Signed Called and spoke with [employer] [facility] [employer], they confirm that Basa glar is ready for delivery. Will arrive tomorrow. Called and spoke with pt's , Ila aleman re someone over the age of 18 is home to sign for package. She verbalized understanding. Denita Thorpe PharmD, BCACP Primary Care Clinical Pharmacist [facility] Allergies As of Date: 11/23/2019 Noted Allergy Reaction MORPHINE 02/28/2005 ROCEPHIN (CEFTRIAXONE SODIUM) 06/20/2014 14 - Other: See Com ments Comments: Hot flashes; redness to skin Date Reviewed: 10/27/2019 Reviewed by: Linwood ([facility]) JAZZY Carpenter - Fully Assessed Reason for Visit: Medication Update [2460] Prescriptions as of 11/23/2019 Sig: NORTRIPTYLINE 25 [...] [Relative 1.7 2.0 - 3.0 Abnormal - [facility] ([id number]) time] progress on 2019-10 PROGRESS HNO ID: [id number] Normal 11-21-2019 [place] Author: Denita Thorpe (Pharmacist) Clinic Service: ? [facility] Author Type: Pharmacist ([id number]) Type: Progress Notes Filed: 12/05/2019 9:55 PM Note Text: TELEPHONIC APPOINTMENT [place] law requires the collaborative practice agreement to [...] manage ment appointment for diabetes. At 09/15 WOUND NURSE?appt,?insulin NPH dose decreased pt was consulted to pharmacy due to increased hypoglycemia.?At last WOUND NURSE visit gabapentin was initiated and empiric treatment for UTI was s tarted with nitrofurantoin monohydrate. At PharmD visit on , ins ulin lispro dose was decreased and patient was recommended to pursue bas al/bolus insulin pens through [employer] patient assistance. At last PCP appt, no [...] (Bmi) of 38.0 to 38.9 in Adult ([facility]) Stasis Dermatitis of Both Legs Foot Callus Subsequent Non-St Elevation (Nstemi) Myocardial Infarction W ithin 4 Weeks of Initial Infarction ([facility]) Syncope Hyperlipidemia Ldl Goal <100 Ashd (Arteriosclerotic [...] of vessel, na tive or graft s/p [place] in 1985 - Diverticulosis of colon (without [...] ventricular tachycardia (HCC) - Snoring - Stroke ([facility]) - Tinea of nail 01/13/2011 - Type 2 diabetes mellitus with stage 3 chronic kidney disea se, with long-term current use of insulin ([facility]) 06/15/2017 - Unspecified essential hypertension ALLERGIES [...] humidity and lifetime supplies. Dx. JESSICA G47.33 327.63 - fax compliance download to [phone] 1 Device 0 - flash glucose sensor [...] once daily. 0 - blood sugar diagnostic ([employer] BLOOD GLUCOSE SYSTEM) test strip Use as [...] and LFTs appropriate for royal nued use. [place] law requires the collaborative practice agreement to [...] Abner, BCACP Primary Care Clinical Pharmacist [facility] cnov on 2019-11-21 CNOV Office Visit (PHMEWO) Normal 11-21-[address] [place] [address] Clinic LOVELY DEVI ([id number]) 1945 M [place] Date Time Provider Department ([id number]) 11/21/19 3:30 PM KEMI (PHARMACIST)DENITA During your visit today, we recorded the following informati on about you: Anshul Hancock 12/05/2019 9:55 PM Signed TELEPHONIC APPOINTMENT [place] law requires the collaborative practice agreement to [...] pharmacotherapy management appointment for diabetes. At 09/15 WOUND NURSE?appt,?insulin NPH dose decreased pt was consulted to pharmacy due to increased hypoglycemia.?At last WOUND NURSE visit ga bapentin was initiated and empiric treatment for UTI was started with nit rofurantoin monohydrate. At PharmD visit on , insulin lispro dose was decreased and patient was recommended to pursue basal/ bolus insulin pens through [employer] patient assistance. At last PCP appt, no [...] on CGM: 158 mg/dL Awaiting approval of [employer] insulin through PAP, Emili log and Basaglar. [...] of vessel, na tive or graft s/p [place] in 1985 - Diverticulosis of colon (without [...] disease, with long-term current use of insulin ([facility]) 06/15/2017 - Unspecified essential hypertension ALLERGIES [...] G47.33 327.23 - fax compliance download to [phone] 1 Device 0 - flash glucose sensor [...] once daily. 0 - blood sugar diagnostic ([employer] BLOOD GLUCOSE SYSTEM) test strip Use as [...] TOUCH ULTRASO FT LANCETS) lancets Use with EndorphMeuch Glucometer as directed 100 Each 3 - [...] disease, with long-term current use of insulin ([facility]) - ICD9: 250.40, 585.3, V58.67, ICD10: [...] of new basal/bolus insu maribell pens from [facility].?Renal function and LFTs appropriate for continued use. [place] law requires the collaborative practice agreement to [...] switching to Basaglar an d Humalog through [employer] patient assistance, will replace current insulins. ? ACEi/ARB for renal protection:?yes, Scr and K+ ok to royal nue ? HbA1c: 01/14/2020 Patient is not scheduled to see PCP. Patient to follow up with PharmD, pt to call me by end of week with update on if approved by PAP. Patient verbalized understanding of instructions. Denita Thorpe, LisaD, BCACP Primary Care Clinical Pharmacist [facility] Referring Provider: DENIZ GARSIA [[id number]] Allergies As of Date: 11/21/2019 Noted Allergy Reaction MORPHINE 02/28/2005 ROCEPHIN (CEFTRIAXONE SODIUM) 06/20/2014 14 - Other: See Com ments Comments: Hot flashes; redness to skin Date Reviewed: 10/27/2019 Reviewed by: Linwood ([facility]) JAZZY Carpenter - Fully Assessed Reason for [...] on 0 yoandy on 2019-11-09 CNPN Telephone ([facility]) Normal 11-09-2019 [facility] LOVELY DEVI ([id number]) 1945 [facility] Time Provider Department ([id number]) 11/09/19 BLOSSOM (PHARMACIST)BRIJESH During your visit today, we recorded the following informati on about you: ANSHUL SEBASTIAN 11/09/2019 9:42 AM Signed [facility] Ambulatory Pharmacy Anticoagulation Clinic Referring provider: No [...] Pharmacy Anticoagulation Clinic Pharmacy Anticoagulation Clinic Pager: [phone] Description Patient has 3 mg tablets of warfarin. Patient takes in the m orning. . Allergies As of Date: 11/09/2019 Noted Allergy Reaction MORPHINE 02/28/2005 ROCEPHIN (CEFTRIAXONE SODIUM) 06/20/2014 14 - Other: See Com ments Comments: Hot flashes; redness to skin Date Reviewed: 10/27/2019 Reviewed by: Linwood ([facility]) JAZZY Carpenter - Fully Assessed Reason for [...] on progress on 2019-10 PROGRESS HNO ID: [id number] Normal 11-04-2019 [facility] Author: Denita Thorpe (Pharmacist) [place] ([id number]) Service: ? Author Type: Pharmacist Type: Progress Notes Filed: 11/15/2019 9:14 AM Note Text: TELEPHONIC APPOINTMENT [place] law requires the collaborative practice agreement to [...] manage ment appointment for diabetes. At 09/15 WOUND NURSE appt, insulin NPH dose decreased pt was consulted to pharmacy due to increased hypoglycemia. At last WOUND NURSE visit gabapentin was initiated and empiric treatment for UTI was s tarted with nitrofurantoin monohydrate. At last PharmD visit on , insulin lispro dose was decreased and patient was recommended to pur funmilayo basal/bolus insulin pens through [facility] patient assista nce. At last PCP [...] Allegramart. States he has not heard from [employer] patient assistance program yet about supply. States [...] ? Adherence: denies missed doses. ? Pharmacy: [facility] [place] ? Rx coverage: Medicare ? Affordability: Gutierrez of brand name insulins is costly on i nsurance, on Relion brand insulin vials ? Diabetes supplies: [employer] ? 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 Esophageal Reflux Benign Neoplasm of Colon Dermatophytosis of Nail Atrial Fibrillation ([facility]) Anticoagulated On Coumadin Class 2 Severe Obesity Due to Excess Calories With Serious C omorbidity and Body Mass Index (Bmi) of 38.0 to 38.9 in Adult ([facility]) Stasis Dermatitis of Both Legs Foot Callus Subsequent Non-St Elevation (Nstemi) Myocardial Infarction W ithin 4 Weeks of Initial Infarction ([facility]) Syncope Hyperlipidemia Ldl Goal <100 Ashd (Arteriosclerotic Heart Disease) Neurocardiogenic Syncope 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 , With Long-Term Current Use of Insulin (Hcc) Facet Arthritis of Lumbar Region Adenopathy Atrial Flutter ([facility]) Balanitis Coronary Angioplasty Status Elevated Troponin I [...] of vessel, na tive or graft s/p [place] in 1985 - Diverticulosis of colon (without [...] ventricular tachycardia (HCC) - Snoring - Stroke ([facility]) - Tinea of nail 01/13/2011 - Type 2 diabetes mellitus with stage 3 chronic kidney disea se, with long-term current use of insulin ([facility]) 06/15/2017 - Unspecified essential hypertension ALLERGIES [...] G47.33 327.23 - fax compliance download to [phone] 1 Device 0 - flash glucose sensor [...] once daily. 0 - blood sugar diagnostic ([employer] BLOOD GLUCOSE SYSTEM) test strip Use as [...] duration of action. Patient assistance forms for [employer] have been fazed and awaiting approval. Renal function and LFTs appropriate for c ontinued use. [place] law requires the collaborative practice agreement to [...] for switching to Basaglar and Humalog th [facility] patient assistance ? ACEi/ARB for renal protection: yes, Scr and K+ ok to royal nue ? HbA1c: 01/14/2020 ? Patient is not scheduled to see PCP. Patient to follow up with PharmD on 11/21/2019. Patient verbalized understanding of instructions. Denita Thorpe, LisaD Primary Care Clinical Pharmacist [facility] yoandy on 2019-11-04 CNPN Telephone (PHMEWO) Normal 11-04-2019 [place] [facility] LOVELY DEVI ([id number]) 1945 M [place] Date Time Provider Department ([id number]) 11/04/19 KEMI (PHARMACIST)DENITA During your visit today, [...] PharmD, BCACP Primary Care Clinical Pharmacist [facility] Allergies As of Date: 11/04/2019 Noted Allergy Reaction MORPHINE 02/28/2005 ROCEPHIN (CEFTRIAXONE SODIUM) 06/20/2014 14 - Other: See Com ments Comments: Hot flashes; redness to skin Date Reviewed: 10/27/2019 Reviewed by: Linwood ([facility]) JAZZY Carpenter - Fully Assessed Reason for Visit: Diabetes [34] Cmt: Medication recommendations Visit Diagnosis:Type [address] 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, with long-term current use of insulin ([facility]) [E11.22, N18.3, Z79.4] Order(s):insulin regular human [...] * Take 60 mg by mouth once ajya * BLOOD SUGAR DIAGNOSTIC STRIPS Use as instructed to check bl* RANOLAZINE ER 1,000 MG TABLET* Take 1 tablet by mouth twice * FENOFIBRATE NANOCRYSTALLIZED * Take 1 tablet by mouth once d * PANTOPRAZOLE 40 MG TABLET,DEL* Take 40 mg by mouth once ajay * LANCETS Use with EndorphMeuch Glucometer * ASPIRIN 81 MG TABLET Take [...] (PHARMACIST)DENITA on CNPN Telephone (NICOLEPWS) Normal 11-04-2019 [facility] LOVELY DEVI ([id number]) 1945 M [place] Date Time Provider Department ([id number]) 11/04/19 MORGAN VALDEZ III During your visit today, we recorded the following informati on about you: Kaitlin King LPN 11/04/2019 3:29 PM Signed Melissa from [facility] Home Health calling for recert orders, 2 visit s weekly for 9 weeks for wound care. Please advise Alex Genao MD 11/07/2019 2:39 PM Signed Ok to weekend caregiver verbal ok for re-cert. Dante Chavez Ma 11/07/2019 3:18 PM Signed TC to Melissa - Detailed message left on confidential voicemail . Dante Chavez Ma Allergies As of Date: 11/04/2019 Noted Allergy Reaction MORPHINE 02/28/2005 ROCEPHIN (CEFTRIAXONE SODIUM) 06/20/2014 14 - Other: See Com ments Comments: Hot flashes; redness to skin Date Reviewed: 10/27/2019 Reviewed by: Linwood ([facility]) JAZZY Carpenter - Fully Assessed Reason for [...] 2019-11-04 CNOV Office Visit (PHMEWO) Normal 11-04-[address] [place] [address] [facility] LOVELY DEVI ([id number]) 1945 [facility] Date Time Provider Department ([id number]) 11/04/19 10:30 AM KEMI (PHARMACIST)[facility] During your visit today, we recorded the following informati on about you: Anshul Hancock 11/15/2019 9:14 AM Signed TELEPHONIC APPOINTMENT [place] law requires the collaborative practice agreement to [...] pharmacotherapy management appointment for diabetes. At 09/15 WOUND NURSE appt, insulin NPH dose decreased pt was consulted to pharmacy due to increased hypoglycemia. At last WOUND NURSE visit ga bapentin was initiated and empiric treatment for UTI was started with nit rofurantoin monohydrate. At last PharmD visit on , insulin lispr o dose was decreased and patient was recommended to pursue basal/bolus insulin pens through [employer] [facility] patient assistance. At last PCP appt, no medication changes made but patient was encouraged to watch carbohydrates in diet and exercise regularly. INTERIM HISTORY: States DM first diagnosed at least >10 years ago. He used to be on Lantus and Humalog but those were expensive so he has switched to insulin NPH and insulin R, Rel[facility] States he has not heard from [employer] [facility] patient assistance program yet about supply. [...] ? Adherence: denies missed doses. ? Pharmacy: [facility] [place] ? Rx coverage: Medicare ? 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 With Stage 3 Chronic Kidney D isease, With Long-Term Current Use of Insulin ([facility]) Facet Arthritis of Lumbar Region Adenopathy Atrial Flutter ([facility]) Balanitis Coronary Angioplasty Status Elevated Troponin I [...] of vessel, na tive or graft s/p [place] in 1985 - Diverticulosis of colon (without [...] ventricular tachycardia (HCC) - Snoring - Stroke ([facility]) - Tinea of nail 01/13/2011 - Type 2 diabetes mellitus with st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, with long-term current use of insulin ([facility]) 06/15/2017 - Unspecified essential hypertension ALLERGIES [...] G47.33 327.23 - fax compliance download to [phone] 1 Device 0 - flash glucose sensor [...] once daily. 0 - blood sugar diagnostic ([employer] BLOOD GLUCOSE SYSTEM) test strip Use as [...] TOUCH ULTRASO FT LANCETS) lancets Use with EndorphMeuch Glucometer as directed 100 Each 3 - [...] disease, with long-term current use of insulin ([facility]) - ICD9: 250.40, 585.3, V58.67, ICD10: [...] of actio n. Patient assistance forms for EveryMove have been fazed and aw aiting approval. Renal function and LFTs appropriate for continued use. [place] law requires the collaborative practice agreement to [...] switching to Basaglar an d Humalog through exoro system patient assistance ? ACEi/ARB for renal protection: yes, Scr and K+ ok to royal nue ? HbA1c: 01/14/2020 ? Patient is not scheduled to see PCP. Patient to follow up with PharmD on 11/21/2019. Patient verbalized understanding of instructions. Deniat Thorpe, PharmD Primary Care Clinical Pharmacist [place] [facility], [facility] Referring Provider: DENIZ GARSIA [[id number]] Allergies As of Date: 11/04/2019 Noted Allergy Reaction MORPHINE 02/28/2005 ROCEPHIN (CEFTRIAXONE SODIUM) 06/20/2014 14 - Other: See Com ments Comments: Hot flashes; redness to skin Date Reviewed: 10/27/2019 Reviewed by: Linwood ([facility]) JAZZY Carpenter - Fully Assessed Reason for Visit: Allied Health Visit [5] Cmt: DM Primary Visit Diagnosis:Type 2 diabetes mellitus with st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, with long-term current use of insulin ([facility]) [E11.22, N18.3, Z79.4] Prescriptions as of [...] mouth once ajay * LANCETS Use with EndorphMeuch Glucometer * ASPIRIN 81 MG TABLET Take [...] on progress on 2019-09 PROGRESS HNO ID: [id number] Normal 10-27-2019 [facility] Author: Morgan Valdez III [place] ([id number]) Service: ? Author Type: Physician Type: Progress [...] c ontinue present medications 4. seen at [facility] in August with chest pain and [...] G47.33 327.23 - fax compliance download to [phone] - flash glucose sensor (FREESTYLE ANITRA 14 [...] mouth once daily. - blood sugar diagnostic ([employer] BLOOD GLUCOSE SYSTEM) test strip Use as [...] of vessel, na tive or graft s/p WA in 1985 - Diverticulosis of colon (without [...] care at wound center follow up with postpartum nurse follow up with FEDERICO Benítez MD on 2019-10-27 CNOV Office Visit (FAMPWS) Normal 10-27-19 [facility] LOVELY DEVI ([id number]) 1945 M [place] Date Time Provider Department ([id number]) 10/27/19 8:40 AM MORGAN VALDEZ III During [...] and continue present medications 4. seen at [facility] in August with chest pain and treated for cellulitis in ICU. Still having some chest pain, constant aching not clearly worse wi th walking but seems to resolve completely with NTG. To see sephora operations consultant to day. 5. JESSICA--tries to use CPAP [...] G47.33 327.23 - fax compliance download to [phone] - flash glucose sensor (FREESTYLE ANITRA 14 [...] TOUCH ULTRASO FT LANCETS) lancets Use with [facility] Glucometer as directed - Aspirin 81 mg [...] of vessel, na tive or graft s/p WA in 1985 - Diverticulosis of colon (without [...] care at wound center follow up with postpartum nurse follow up with FEDERICO Benítez MD, III MD 10/27/2019 9:16 AM Signed PLAN: healthy weight losing diet and regular exercise eat less sugar, bread, potato, pasta, rice, corn, corn syrup, saturated fats recheck HbA1c 3 mos increase gabapentin 900 mg three times/day for nerve pain continue wound care at wound center follow up with postpartum nurse follow up with Seven Valdez III MD Referring Provider: MORGAN VALDEZ III [[id number]] Allergies As of Date: 10/27/2019 Noted Allergy Reaction MORPHINE 02/28/2005 ROCEPHIN (CEFTRIAXONE SODIUM) 06/20/2014 14 - Other: See Com ments Comments: Hot flashes; redness to skin Date Reviewed: 10/27/2019 Reviewed by: Linwood ([employer] Professional) JAZZY Carpenter - Fully Assessed Reason for Visit: 6 Month Exam [189] Primary Visit Diagnosis:Type 2 diabetes mellitus with diabetic neuropathy, with long-term current use of insulin ([facility]) [E11.40, Z79.4] Other Visit Diagnoses:Type 2 diabetes mellitus with st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, with long-term current use of insulin ([facility]) [E11.22, N18.3, Z79.4] Ischemic cardiomyopathy [I25.5] ASHD (arteriosclerotic heart disease) [I25.10] Hyperlipidemia LDL goal <100 [E78.5] Stasis dermatitis of both legs [I87.2] Essential hypertension [I10] JESSICA (obstructive sleep apnea) [G47.33] Order(s):HGB A1C [GMIEX4D] Order #: [id number] FUTURE gabapentin (NEURONTIN) 300 mg capsuleTake 3 [...] care at wound center follow up with postpartum nurse follow up with Seven Valdez III MD [...] on 10/27/19 cnpn on 2019-10-26 CNPN Telephone ([facility]) Normal 10-26-2019 [facility] LOVELY DEVI ([id number]) 1945 M [facility] Time Provider Department ([id number]) 10/26/19 BLOSSOM (PHARMACIST)BRIJESH During your visit today, we recorded the following informati on about you: ANSHUL SEBASTIAN 10/26/2019 4:37 PM Signed Patient was due to test INR today will continue to monitor f or results. Joleen Cerrato, PharmD Pharmacy Anticoagulation Clinic ANSHUL COLIN 10/27/2019 9:42 AM Signed [facility] Ambulatory [facility] Anticoagulation [facility] Lovely Devi is a 74 year old year old male patient being evaluated today for anticoagulation Telemanagement visit. Patient is currently on the following anticoagulant: Warfarin Labs PT INR (no units) Date Value 11/26/2018 Test sent to [facility]. 10/16/2017 1.8 01/16/2017 Test sent to [facility]. INR (POCT) (no units) Date Value [...] information and advised to call PAC at [phone] if any questions or changes to report. PRIYANKA BAUER PHARMACIST Clinical Pharmacist, Pharmacy Anticoagulation Clinic Pharmacy Anticoagulation Clinic Pager: [phone] Allergies As of Date: 10/26/2019 Noted Allergy Reaction MORPHINE 02/28/2005 ROCEPHIN (CEFTRIAXONE SODIUM) 06/20/2014 14 - Other: See Com ments Comments: Hot flashes; redness to skin Date Reviewed: 10/06/2019 Reviewed by: Kath (Dnp.Lining Repairer) SHANELLE Nielsen.ELBA - Fully Assesse d Reason [...] on 2019-10-24 CNPN Telephone (PHMEWO) Normal 10-24-2019 [place] [facility] LOVELY DEVI ([id number]) 1945 M [place] Date Time Provider Department ([id number]) 10/24/19 KEMI (PHARMACIST)DENITA During your visit today, we recorded the following informati on about you: Anshul Hancock 10/24/2019 9:38 AM Signed Received patient's completed patient section of the HouseTab res PAP application. Completed prescriber section and wi provider to PCP for review and signature of orders. Medications pursuing through exoro system PAP: ? Basaglar (to replace insulin NPH) ? Humalog (to replace insulin R) Once PCP sign orders, ok to fax to exoro system ( ). Please place in pharmacy mailbox for record keeping and follow up. Thanks! Denita Thorpe PharmD Primary Care Clinical Pharmacist [place] [facility] Linwood Carpenter CMA, MA 10/24/2019 10:19 AM Signed Forms placed on PCP's desk. AUDI Rowan III MD 10/24/2019 1:10 PM Signed form has been signed FEDERICO Alatorre MD, CMA, [place] 10/24/2019 1:47 PM Signed Form faxed and placed in pharmacist mail slot. Linwood Carpenter CMA Allergies As of Date: 10/24/2019 Noted Allergy Reaction MORPHINE 02/28/2005 ROCEPHIN (CEFTRIAXONE SODIUM) 06/20/2014 14 - Other: See Com ments Comments: Hot flashes; redness to skin Date Reviewed: 10/06/2019 Reviewed by: Kath (Dnp.Lining Repairer) SHANELLE Nielsen.WOUND NURSE - Fully Assesse d Reason for Visit: Patient Assistance [[id number]] Cmt: Humalog and Basaglar Prescriptions as of [...] on 2019-10-17 CNPN Telephone (FAMPWS) Normal 10-17-2019 [facility] LOVELY DEVI ([id number]) 1945 [facility] Date Time Provider Department ([id number]) 10/17/19 MORGAN VALDEZ III FAMPWS During your visit today, we recorded the following informati on about you: Cindi Eastman LPN 10/17/2019 3:27 PM Signed Melany with [facility] called and needed c larification on Insulin [...] 25 Hydroxy 24.5 31.0-80.0 ng/mL Low 0 [facility] (72397) Comment: Result Comment: Classificati on of 25 [place] Vitamin D status: Insufficiency/Moderate Defic iency: < or = 30 ng/mL Sufficiency/Optimal Levels: 31 to 80 ng/mL Toxicity: > 100 ng/mL Test performed by chemilumin escent immunoassay. Performed By: #### HBA1C, CM P, LIPB, VITD ####[facility] [address] [place], [place] [phone] lipid panel, basic on 2019-10-14 Cholesterol [Mass/Vol] 123 <200 mg/dL Normal 020 [facility] (61594) Comment: Result Comment: <200 mg/dL, Desirable 200-239 mg/dL, Borderline hi gh >239 mg/dL, High Performed By: #### HBA1C, CM P, LIPB, VITD ####[facility] [address] [place], [place] [phone] Cholesterol in HDL [Mass/Vol] 35 >39 mg/dL Low 10-14-2019 [facility] (96970) Comment: Result Comment: 40-59 mg/dL, Acceptable >59 mg/dL, High: Negative ri sk factor for coronary heart disease <40 mg/dL, Low: Positive ris k factor for coronary heart disease Performed By: #### HBA1C, CM P, LIPB, VITD ####[facility] [address] [place], [place] [phone] Cholesterol in LDL 53 <100 mg/dL Normal 10-14-2019 [facility] [Mass/Vol] [place] (48832) Comment: Result Comment: <100 mg/dL, Optimal 100-129 mg/dL, Near optimal/ above optimal 130-159 mg/dL, Borderline hi gh 160-189 mg/dL, High >189 mg/dL, Very high Secondary prevention optimal LDL Cholesterol levels are recommended to be < 70 mg/dL Performed By: #### HBA1C, CM P, LIPB, VITD ####[facility] [place], [place] [phone] Fasting Time 12 hrs Normal 10-14-2019 [facility] (06721) Comment: Performed By: #### HBA1C, CM P, LIPB, VITD ####[place] [address] [place], [place] [phone] LDL:HDL Ratio 1.51 <2.54 Normal 10-14-2019 [facility] (19177) Comment: Result Comment: Reference: 1. National Cholesterol Educ ation Program ATP III Guideline At-A-Glance Quick Desk Reference: National Heart, Lung, and Blood Healy. National Institutes of Health. 2001: NIH Publication No. 01-3305. 2. An International Atherosc lerosis Society position paper: global recommendations for the management of dyslipidemia: executive summary, Atherosclerosis. 2014: 232(2):410-413. Performed By: #### HBA1C, CM P, LIPB, VITD ####[facility] [address] [place], [place] [phone] Non HDL Cholesterol 88 <130 mg/dL Normal 10-14-2019 [facility] (82625) Comment: Result Comment: <130 mg/dL, Optimal 130-159 mg/dL, Near optimal/ above optimal 160-189 mg/dL, Borderline hi gh 190-219 mg/dL, High >219 mg/dL, Very high Secondary prevention optimal non HDL Cholesterol levels are recommended to be < 100 mg/dL Performed By: #### HBA1C, CM P, LIPB, VITD ####[facility] [address] [facility] [place] [place] [phone] TC:HDL Ratio 3.51 <5.10 Normal 10-14-2019 [facility] (11356) Comment: Performed By: #### HBA1C, CM P, LIPB, VITD ####[place] [address] [place], [place] [phone] Triglyceride [Mass/Vol] 177 <150 mg/dL High 2019 [facility] (89180) Comment: Result Comment: <150 mg/dL, Normal 150-199 mg/dL, Borderline hi gh 200-499 mg/dL, High >499 mg/dL, Very high Performed By: #### HBA1C, CM P, LIPB, VITD ####[place] [address] [place], [place] [phone] VLDL Cholesterol 35 <30 mg/dL High 10-14-2019 [facility] (64123) Comment: Performed By: #### HBA1C, CM P, LIPB, VITD ####[place] [address] [place], [place] [phone] hemoglobin a1c on 2 HbA1c (Bld) [Mass fraction] 171 mg/dL Normal [facility] (88222) Comment: Result Comment: eAG: (Estima devin average glucose) is a calculated value from HgbA1c and is installation service representative of the average blood glucose level in the last 2-3 month period. Performed By: #### HBA1C, CM P, LIPB, VITD ####[place] [address] [place], [place] [phone] HbA1c (Bld) [Mass fraction] 7.6 4.3-5.6 % High [facility] (50907) Comment: Result Comment: [place] Dominique betes Association guidelines indicate that patients with HgbA1c in the range 5.7-6.4% are at increased risk for development of diabetes, and intervention by lifestyle modification may be beneficial. HgbA1c greater o r equal to 6.5% is considered diagnostic of diabetes. Performed By: #### HBA1C, CM P, LIPB, VITD ####[facility] [address] [place] [phone] comp metabolic panel on 2019-10-14 Albumin [Mass/Vol] 4.1 3.9-4.9 g/dL Normal 10-14-2019 [facility] (31638) Comment: Performed By: #### HBA1C, CM P, LIPB, VITD ####[facility] [address] [place] [phone] ALP [Catalytic activity/Vol] 55 38-113 U/L Normal 0 10-14-2019 [facility] (25368) Comment: Performed By: #### HBA1C, CM P, LIPB, VITD ####[place] [address] [place] [phone] ALT [Catalytic activity/Vol] 26 10-54 U/L Normal 0 10-14-2019 [facility] (34618) Comment: Performed By: #### HBA1C, CM P, LIPB, VITD ####[place] [address] [place], [place] [phone] Anion gap [Moles/Vol] 10 9-18 mmol/L Normal 10-14-19 [facility] (09061) Comment: Performed By: #### HBA1C, CM P, LIPB, VITD ####[facility] [address] [place] [phone] AST [Catalytic activity/Vol] 23 14-40 U/L Normal 0 10-14-2019 [facility] (01797) Comment: Performed By: #### HBA1C, CM P, LIPB, VITD ####[facility] [address] [place], [place] [phone] Bilirubin [Mass/Vol] 0.4 0.2-1.3 mg/dL Normal 0 [facility] (28596) Comment: Performed By: #### HBA1C, CM P, LIPB, VITD ####[facility] [address] [place], [place] [phone] Calcium [Mass/Vol] 9.0 8.5-10.2 mg/dL Normal 10-14-2019 [facility] (69862) Comment: Performed By: #### HBA1C, CM P, LIPB, VITD ####[facility] [address] [place], [place] [phone] Chloride [Moles/Vol] 101 97-105 mmol/L Normal 0 [facility] (37749) Comment: Performed By: #### HBA1C, CM P, LIPB, VITD ####[place] [address] [place], [place] [phone] CO2 [Moles/Vol] 24 22-30 mmol/L Normal 10-14-2019 [facility] (04744) Comment: Performed By: #### HBA1C, CM P, LIPB, VITD ####[facility] [place], [place] [phone] Creatinine [Mass/Vol] 1.30 0.73-1.22 mg/dL High 10-14-19 20 [facility] (67197) Comment: Performed By: #### HBA1C, CM P, LIPB, VITD ####[facility] [address] [place], [place] [phone] eGFR- Amer. >60 Normal 10-14-2019 [facility] (73894) Comment: Performed By: #### HBA1C, CM P, LIPB, VITD ####[facility] [place], [place] [phone] GFR/1.73 sq M predicted among 54 . Normal 10-14-2019 [facility] non-blacks MDRD (S/P/Bld) [Vol (48032) rate/Area] Comment: Result Comment: eGFR (Estima devin [...] By: #### HBA1C, CM P, LIPB, VITD ####[facility] [address], [place] [phone] Glucose [Mass/Vol] 197 74-99 mg/dL High 10-14-2019 [facility] (14280) Comment: Result Comment: The [place] Diabetes Association (ADA) provides guidance for cutoff [...] for diagnosis of diabetes. Reference: Standards of [facility] Care in Diabetes 2016, [place] Diabetes Association. Diabetes Care. 2016.39(Suppl 1). Performed By: #### HBA1C, CM P, LIPB, VITD ####[facility] [address] [place], [place] [phone] Potassium [Moles/Vol] 4.6 3.7-5.1 mmol/L Normal 10-14-19 [facility] (38780) Comment: Performed By: #### HBA1C, CM P, LIPB, VITD ####[facility] [address] [place], [place] [phone] Protein [Mass/Vol] 6.0 6.3-8.0 g/dL Low 10-14-2019 [facility] (48719) Comment: Performed By: #### HBA1C, CM P, LIPB, VITD ####[facility] [address] [place], [place] [phone] Sodium [Moles/Vol] 135 136-144 mmol/L Low 10-14-2019 [facility] (88540) Comment: Performed By: #### HBA1C, CM P, LIPB, VITD ####[facility] [address] [place], [place] [phone] Urea nitrogen [Mass/Vol] 27 9-24 mg/dL High 10-13 [facility] (52479) Comment: Performed By: #### HBA1C, CM P, LIPB, VITD ####[facility] [place], [place] [phone] albumin/creat ratio on 2019-10-14 Albumin Urine Random <12.0 Normal 0 [facility] (14439) Comment: Performed By: #### UACR #### [facility], [place] [phone] Albumin/Creat Ratio Not calculated <30 Normal 10-13 [facility] (15247) Comment: Performed By: #### UACR #### [facility] [address], [place] [phone] Creatinine,Urine,Ran 63.4 20-300 mg/dL Normal 0 [facility] (54060) Comment: Performed By: #### UACR #### [facility] [address], [place] [phone] progress on 2019-09 PROGRESS HNO ID: [id number] Normal 10-12-2019 [facility] Author: Denita Thorpe (Pharmacist) [place] ([id number]) Service: ? Author Type: Pharmacist Type: Progress Notes Filed: 10/13/2019 5:40 PM Note Text: [place] law requires the collaborative practice agreement to [...] is presenting today for initial pharmacotherapy alok [facility] appointment for diabetes. At 09/15 WOUND NURSE appt, insulin NPH dose decreased pt was consulted to pharmacy due to increased hypoglycemia. At last WOUND NURSE visit gabapentin was initiated and empiric treatment [...] really watch what he eats. He has [employer] CGM. Does not have Jimdo accounts , states he is not too [...] ? Adherence: denies missed doses. ? Pharmacy: [facility] [place] ? Rx coverage: Medicare ? Affordability: Gutierrez of brand name insulins is costly on i nsurance, on Relion brand insulin vials ? Diabetes supplies: [employer] Anitra ACTIVE PROBLEM LIST Cardiomegaly Essential Hypertension [...] of vessel, na tive or graft s/p [place] in 1985 - Diverticulosis of colon (without [...] G47.33 327.23 - fax compliance download to [phone] - flash glucose sensor (FREESTYLE ANITRA 14 [...] mouth once daily. - blood sugar diagnostic ([employer] BLOOD GLUCOSE SYSTEM) test strip Use as [...] ase, with long-term current use of insulin ([facility]) - ICD9: 250.40, 585.3 , V58.67, [...] of a ction. Patient assistance forms for EveryMove given to pt to pursue basal insulin. Renal function and LFTs appropriate for continued use. [place] law requires the collaborative practice agreement to [...] 11/03, to u pload CGM data on Jimdo prior to appt with help from daughter. Patient verbalized understanding of instructions. Denita Thorpe, Abner Primary Care Clinical Pharmacist [place] [facility] elban on 2019-10-12 CNPN Telephone (PlaceIQRAV) Normal 10-12-2019 [facility] LOVELY DEVI ([id number]) 1945 [place] Date Time Provider Department ([id number]) 10/12/19 BLOSSOM (PHARMACIST)SHARIF During your visit today, we recorded the following informati on about you: ANSHUL SEBASTIAN 10/12/2019 9:23 AM Signed [facility] Anticoagulation [facility] Referring provider: No ref. provider found Lovelyguadalupe Devi is a 73 year old year old male patient being evaluated today for anticoagulation Telemanagement visit. Patient is currently on the following anticoagulant Warfarin Labs PT INR (no units) Date Value 11/26/2018 Test sent to [facility]. 10/16/2017 1.8 01/16/2017 Test sent to [facility]. INR (POCT) (no units) Date Value [...] Pharmacy Anticoagulation Clinic Pharmacy Anticoagulation Clinic Pager: [phone] Description Patient has 3 mg tablets of warfarin. Patient takes in the m orning. . Allergies As of Date: 10/12/2019 Noted Allergy Reaction MORPHINE 02/28/2005 ROCEPHIN (CEFTRIAXONE SODIUM) 06/20/2014 14 - Other: See Com ments Comments: Hot flashes; redness to skin Date Reviewed: 10/06/2019 Reviewed by: Kath (Faiza.Lining Repairer) Blaz, CORN DETASSELER.WOUND NURSE - Fully Assesse d Reason for Visit: [...] mouth once ajay * LANCETS Use with EndorphMeuch Glucometer * ASPIRIN 81 MG TABLET Take [...] 2019-10-12 CNOV Office Visit (PHMEWO) Normal 10-12-19 [facility] LOVELY DEVI ([id number]) 1945 M [place] Date Time Provider Department ([id number]) 10/12/19 3:00 PM KEMI (PHARMACIST)DENITA During your visit today, we recorded the following informati on about you: Anshul Hancock 10/13/2019 5:40 PM Signed [place] law requires the collaborative practice agreement to [...] pharmacotherapy management appointment for diabetes. [facility], insulin NPH dose decreased pt was consulted to pharmacy due to increased hypoglycemia. At [facility] visit [place] bapentin was initiated and empiric treatment for UTI was started with nit rofurantoin monohydrate. INTERIM HISTORY: States DM first diagnosed at least >10 years ago. He used to be on Lantus and Humalog but those were expensive so he has switched to insulin NPH and insulin R, Relion brand vials from [employer]. Reports in the past having l ower BG in the 50s, states it does not happen often but when it does he usually needs to treat it twice to improve the blood sugar. Reports does not really watch what he eats. He has [employer] CGM. Does not hav e Jimdo accounts, states he is not too tech [...] ? Adherence: denies missed doses. ? Pharmacy: [facility], [place] ? Rx coverage: Medicare ? 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 With Stage 3 Chronic Kidney D isease, With Long-Term Current Use of Insulin ([facility]) Facet Arthritis of Lumbar Region Adenopathy Atrial [...] (arteriosclerotic heart disease) 02/19/2015 - Atrial fibrillation ([facility]) 07/03/2011 - Automatic implantable cardiac defibrillator in situ - Petit's esophagus with esophagitis 03/01/2015 - Benign neoplasm of colon - Chronic diarrhea 09/16/2011 - Coronary atherosclerosis of unspecified type of vessel, na tive or graft s/p [place] in 1985 - Diverticulosis of colon (without [...] ventricular tachycardia (HCC) - Snoring - Stroke ([facility]) - Tinea of nail 01/13/2011 - Type 2 diabetes mellitus with st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, with long-term current use of insulin ([facility]) 06/15/2017 - Unspecified essential hypertension ALLERGIES [...] G47.33 327.23 - fax compliance download to [phone] - flash glucose sensor (FREESTYLE ANITRA 14 [...] mouth once daily. - blood sugar diagnostic ([employer] BLOOD GLUCOSE SYSTEM) test strip Use as [...] TOUCH ULTRASO FT LANCETS) lancets Use with [facility] [facility] Glucometer as directed - Aspirin 81 mg [...] disease, with long-term current use of insulin ([facility]) - ICD9: 250.40, 585.3, V58.67, ICD10: [...] on and LFTs appropriate for continued use. [place] law requires the collaborative practice agreement to be initiated by a physician in order to provide medication titration. [facility], pharmacy will only provide medication recommend [...] on 11/03, to upload CGM data on Jimdo prior to appt with help from daughter. Patient verbalized understanding of instructions. Denita Thorpe PharmD Primary Care Clinical Pharmacist Oziel [facility], [facility]1983 Anshul Hancock 10/12/2019 3:56 PM Addendum ? [...] replace insulin R) Referring Provider: DENIZ GARSIA [[id number]] Allergies As of Date: 10/12/2019 Noted Allergy Reaction MORPHINE 02/28/2005 ROCEPHIN (CEFTRIAXONE SODIUM) 06/20/2014 14 - Other: See Com ments Comments: Hot flashes; redness to skin Date Reviewed: 10/06/2019 Reviewed by: Kath (Dnp.Lining Repairer) SHANELLE Nielsen.ELBA - Fully Assesse d Reason [...] mouth once ajay * LANCETS Use with OneEndologixuch Glucometer * ASPIRIN 81 MG TABLET Take [...] on progress on 2019-09 PROGRESS HNO ID: [id number] Normal 10-06-2019 [facility] Author: Kath (Faiza.Elba) SEFERINO Nielsen Amado ([id number]) Service: ? Author Type: Nurse Practitioner Type: Progress Notes Filed: 10/06/2019 3:42 PM Note Text: Chief Complaint Patient presents with: Hematuria: urine taken but home health 2 weeks ago Burning with urination HPI Lovely Devi is a 73 year old male who presents he re today for a several day history of urinary symptoms. This is an establis [facility] patient of Dr. Morgan Valdez III MD. This is a new patient to me. Patient was recently admitted a nd discharged from [facility] for cellulitis to right leg. He [...] but states it was discontinued by his [facility] medicine doctor. Past medical history, appointments, medications, [...] of vessel, na tive or graft s/p [place] in 1985 - Diverticulosis of colon (without [...] se, with long-term current use of insulin ([facility]) 06/15/2017 - Unspecified essential hypertension Previous Surgical History PAST SURGICAL HISTORY Procedure Laterality Date - [facility] Dr. Anthony-repeat 3 years-11/2020 - COLONOSCOPY W/BX 02/21/09 - EGD W/O OR W/BRUSH/WASH EGD - EGD W/O OR W/BRUSH/WASH 02/16/08 EGD inpt [facility] H-pylori negative - EGD W/O OR W/BRUSH/WASH 05/24/15 EGD - EGD W/O OR W/BRUSH/WASH 12/21/2017 Dr. Anthony-repeat 3 years-11/2020 - HEART CATHETERIZATION 12/15/2014 [facility] - see scanned documents - HEART [...] G47.33 327.23 - fax compliance download to [phone] - flash glucose sensor (FREESTYLE ANITRA 14 [...] mouth once daily. - blood sugar diagnostic (HiPer Technology BLOOD GLUCOSE SYSTEM) test strip Use as [...] Lacey Nguyen APN Student Kath Nielsen DNP, WOUND NURSE This note was completed with BookingPal dictation software. Note was reviewed for accuracy. There may be minor misspellings or gr ammar miscues with BookingPal Dictation. Lacey Nguyen APN student from [facility] completed initial history and physical exam. I reviewed the note, examined the patient and concur with plan of care. [place] [address] cnov on 2019-10-06 CNOV Office Visit (FAMPWS) Normal 10-06-[address] [place] [address] [facility] LOVELY DEVI ([id number]) 1945 [facility] Date Time Provider Department ([id number]) 10/06/19 1:40 PM KATH NIELSEN (FAIZA.ELBA) FAMPWS During your visit today, we recorded the following informati on about you: Temperature Pulse Respiration Blood pressure 98.4 degrees 65/minute 14/minute 128/70 Weight 118.8 kg Kath Nielsen DNP.ELBA, CORN DETASSELER.ELBA 10/06/2019 3:42 PM Signed Chief Complaint Patient [...] Patient was recently admitted and discharged from [facility] for cellulitis to right leg . [...] of vessel, na tive or graft s/p [place] in 1985 - Diverticulosis of colon (without [...] EGD W/O OR W/BRUSH/WASH 02/16/08 EGD inpt [facility] H-pylori negative - EGD W/O OR W/BRUSH/WASH 05/24/15 EGD - EGD W/O OR W/BRUSH/WASH 12/21/2017 Dr. Anthony-repeat 3 years-11/2020 - HEART CATHETERIZATION 12/15/2014 [facility] - see scanned documents - HEART [...] G47.33 327.23 - fax compliance download to [phone] - flash glucose sensor (HealthMicroSTYLE ANITRA 14 DAY SENSOR) kit 1 Each [...] mouth once daily. - blood sugar diagnostic (HiPer Technology BLOOD GLUCOSE SYSTEM) test strip Use as [...] TOUCH ULTRASO FT LANCETS) lancets Use with EndorphMeuch Glucometer as directed - Aspirin 81 mg [...] Lacey Nguyen APN Student Kath Nielsen, DNP, WOUND NURSE This note was completed with Manalto software. Note was reviewed for accuracy. There may be minor misspellings or gramm ar miscues with BookingPal Dictation. Lacey Nguyen APN student from [facility] completed initial history and physical exam. I reviewed the note, examined the patient and concur with plan of care. [place] [address] Lacey Nguyen APN Student 10/06/2019 2:32 PM Addendum Urinalysis performed today in office Urine sent for culture, clinic to call if antibiotics need t o be changed Start macrobid 100 mg twice a day until completed Start gabapentin 300 mg at b edtime for burning to legs and discuss further with Dr. Valedz on schedule appointment Call clinic if burning with urination does not get better wi th antibiotics Return to the clinic or seek care at [facility] for any worsening signs or symptoms: such as f samina, chills, worsening pain, nausea, or diarrhea. For severe symptoms seek care at the [facility] ER. Plan of care, medicaiton [...] skin Date Reviewed: 10/06/2019 Reviewed by: Kath (Faiza.Lining Repairer) SHANELLE Nielsen.WOUND NURSE - Fully Assesse d Reason for Visit: Hematuria [335] Cmt: urine taken but home health 2 weeks ago Primary Visit Diagnosis:Dysuria [R30.0] Other Visit Diagnoses:Microscopic hematuria [R31.29] Type 2 diabetes mellitus with diabetic neuropathy, with long-term current use of insulin (HCC) [E11.40, Z79.4] Order(s):UA DIP, URINE (POC) [[id number]] Order #: [id number] ec. #:[id number] nitrofurantoin monohydrate and macrocrystal (MACROBID) 100 m [...] Recorded Encounter Status:Closed by KATH NIELSEN DNP WOUND NURSE on 10/06/19 [facility]pn [facility] Normal 09-28-2019 [facility] LOVELY DEVI ([id number]) 1945 M [place] Date Time Provider Department ([id number]) 09/28/19 BLOSSOM (PHARMACIST)BRIJESH During your visit today, we recorded the following informati on about you: ANSHUL SEBASTIAN 09/28/2019 10:53 AM Signed [facility] Referring provider: No ref. provider found Lovelyguadalupe Ornelasalmitajenny is a 73 year old year old male patient being evaluated today for anticoagulation Telemanagement visit. Patient is currently on the following anticoagulant Warfarin Labs PT INR (no units) Date Value 11/26/2018 Test sent to [facility]. 10/16/2017 1.8 01/16/2017 Test sent to [facility]. INR (POCT) (no units) Date Value [...] Pharmacy Anticoagulation Clinic Pharmacy Anticoagulation Clinic Pager: [phone] Description Patient has 3 mg tablets of [...] on 2019-09-26 CNPN Telephone (FAMPWS) Normal 09-26-2019 [facility] LOVELY DEVI ([id number]) 1945 M [place] Date Time Provider Department ([id number]) 09/26/19 MORGAN VALDEZ III During your visit today, we recorded the following informati on about you: Cindi Eastman LPN 09/26/2019 11:56 AM Signed Melany with [facility] just left patient from a wound ch juan on his leg. He was complaining of blood in his underwear and painful urinatio n. Gathered urine samples. Looked good clear to pale. Call with verbal order t o PH: [phone]. She gathered enough urine to do the [...] LPN 09/27/2019 8:14 AM Signed Melany with [facility] is aski ng with verbage await urine results if this means provider is ok with uryinalysis. Call Melany with provider message. Jerilyn Valdez III MD 09/27/2019 8:36 AM Signed Yes?please obtain urinalysis FEDERICO Alatorre MD, CMA, [place] 09/27/2019 10:04 AM Signed Melany has been notified. Linwood Carpenter CMA Allergies As of Date: 09/26/2019 Noted Allergy Reaction MORPHINE 02/28/2005 ROCEPHIN (CEFTRIAXONE SODIUM) 06/20/2014 14 - Other: See Com ments Comments: Hot flashes; redness to skin Date Reviewed: 09/16/2019 Reviewed by: Deniz Garsia - Fully Assessed Reason for Visit: [facility] [Other] Prescriptions as of 09/26/2019 Sig: LATANOPROST [...] 09/27/19 progress on 2019-08 PROGRESS HNO ID: [id number] Normal 09-16-2019 [facility] Author: Deniz Garsia [place] ([id number]) Service: ? Author Type: Nurse Practitioner Type: Progress Notes Filed: 09/16/2019 2:19 PM Note Text: Chief Complaint Patient presents with: Hospital Follow Up HPI Lovely Devi is a 73 year old male who presents he re today for Hospital Discharge Follow up. ADM [facility] 09/04-09/08/2019 for CHF[address] Follow[address] Dr. [...] placed on Trazodone 50 mg at hs. Hume leg sx wer e related to CHF [...] after breakfast. He rep orts 7 day mVV=305, 14 day kCC=025, and 90 day lUL=174. He relates he d oes not feel [...] of vessel, na tive or graft s/p [place] in 1985 - Diverticulosis of colon (without [...] Laterality Date - COLONOSCOP W/ OR W/O [facility] SPEC 12/21/2017 Dr. Anthony-repeat 3 years-11/2020 - COLONOSCOPY W/BX 02/21/09 - EGD W/O OR W/BRUSH/WASH EGD - EGD W/O OR W/BRUSH/WASH 02/16/08 EGD inpt [facility] H-pylori negative - EGD W/O OR W/BRUSH/WASH 05/24/15 EGD - EGD W/O OR W/BRUSH/WASH 12/21/2017 Dr. Anthony-repeat 3 years-11/2020 - HEART CATHETERIZATION 12/15/2014 [facility] - see scanned documents - HEART [...] G47.33 327.23 - fax compliance download to [phone] - flash glucose sensor (FREESTYLE ANITRA 14 [...] mouth once daily. - blood sugar diagnostic (HiPer Technology BLOOD GLUCOSE SYSTEM) test strip Use as [...] slow healing of venous ulceration. Following with [facility]. 5. Stasis dermatitis with venous ulcer [...] complication, with long-term current use of insulin ([facility]) - ICD9: 250.00, V58.6 7, ICD10: [...] TRAZODONE 50 MG TABLET Deniz Garsia, MSN CORN DETASSELER.WOUND NURSE cnov on 2019-09-16 CNOV Office Visit (FAMPWS) Normal 09-16-19 [facility] LOVELY DEVI ([id number]) 1945 [facility] Date Time Provider Department ([id number]) 09/16/19 9:40 AM DENIZ GARSIA During your visit today, we recorded the following informati on about you: Temperature Pulse Respiration Blood pressure 97.9 degrees 68/minute 20/minute 122/70 Deniz Garsia, MSN CORN DETASSELER.WOUND NURSE 09/16/2019 2:19 PM Signed Chief Complaint Patient presents with: Hospital Follow Up HPI Lovely Devi is a 73 year old male who presents he re today for Hospital Discharge Follow up. ADM [facility] 09/04- 020 for CHF. Follows with [...] placed on Trazodone 50 mg at hs. Hume le g sx were related to CHF [...] 82 after breakfast. He reports 7 day hYH=934, 14 day mGF=566, and 90 day bRA=421. He relates he does not feel the [...] of vessel, na tive or graft s/p [place] in 1985 - Diverticulosis of colon (without [...] disease, with long-term current use of insulin ([facility]) 06/15/2017 - Unspecified essential hypertension Previous Surgical History PAST SURGICAL HISTORY Procedure Laterality Date - COLONOSCOP W/ OR W/O [facility] SPEC 12/21/2017 Dr. Anthony-repeat 3 years-11/2020 - COLONOSCOPY W/BX 02/21/09 - EGD W/O OR W/BRUSH/WASH EGD - EGD W/O OR W/BRUSH/WASH 02/16/08 EGD inpt [facility] H-pylori negative - EGD W/O OR W/BRUSH/WASH 05/24/15 EGD - EGD W/O OR W/BRUSH/WASH 12/21/2017 Dr. Anthony-repeat 3 years-11/2020 - HEART CATHETERIZATION 12/15/2014 [facility] - see scanned documents - HEART [...] G47.33 327.23 - fax compliance download to [phone] - flash glucose sensor (FREESTYLE ANITRA 14 [...] mouth once daily. - blood sugar diagnostic (HiPer Technology BLOOD GLUCOSE SYSTEM) test strip Use as [...] TOUCH ULTRASO FT LANCETS) lancets Use with EndorphMeuch Glucometer as directed - Aspirin 81 mg [...] and diastolic CHF (con gestive heart failure) ([facility]) - ICD9: 428.43, 428.0, ICD10: I50.43 (primary diagnosis) -Stable, - Follow up with Cardiology as scheduled. 2. Type 2 diabetes mellitus with st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, with long-term current use of insulin ([facility]) - ICD9: 250.40, 585.3, V58.67, ICD10: [...] slow healing of venous ulceration. Following with [facility]. 5. Stasis dermatitis with venous ulcer of lower extremity du e to chronic peripheral venous hypertension ([facility]) - ICD9: 459.31, I CD10: I87.339, [...] n, with long-term current use of insulin ([facility]) - ICD9: 250.00, V58.67, ICD10: E11.9, [...] TRAZODONE 50 MG TABLET Deniz Garsia, MSN CORN DETASSELER.WOUND NURSE Referring Provider: SELF [[id number]] Allergies As of Date: 09/16/2019 Noted Allergy Reaction MORPHINE 02/28/2005 ROCEPHIN (CEFTRIAXONE SODIUM) 06/20/2014 14 - Other: See Com ments Comments: Hot flashes; redness to skin Date Reviewed: 09/16/2019 Reviewed by: Deniz Garsia - Fully Assessed Reason for Visit: Hospital Follow Up [177] Primary Visit Diagnosis: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) ([facility]) [I50.43] Other Visit Diagnoses:Type 2 diabetes mellitus with st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, with long-term current use of insulin ([facility]) [E11.22, N18.3, Z79.4] Essential hypertension [I10] Cellulitis of right lower extremity [L03.115] Stasis 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 ([facility]) [I87.339, L97.909] Closed nondisplaced fracture of fifth metatarsal bone of left foot with routine healing, subsequent encounter [S92.000D] Controlled type 2 diabetes mellitus without complication, with long-term current use of insulin ([facility]) [E11.9, Z79.4] Vitamin D 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] Sleep difficulties [G47.9] Order(s):insulin lispro (HUMALOG U-100 INSULIN) 100 unit/mL edxohvasa13 units with breakfast, 20 units at lunch, [...] TO AMBULATORY CLINIC PHARMACY [[id number]] Order #: [id number]: 1 VITAMIN D 25 HYDROXY [SQVITD] Order #: [id number] FUTURE Cholecalciferol, Vitamin D3, 50 mcg (2,000 [...] E-Cancel Cosign accepted by MORGAN VALDEZ III, MD[[id number]] on 06/25/19 17 6:04 PM Melatonin 5 [...] on 2019-09-14 CNPN Telephone (FAMPWS) Normal 09-14-2019 [facility] LOVELY DEVI ([id number]) 1945 M [place] Date Time Provider Department ([id number]) 09/14/19 [facility] During your visit today, we recorded the following informati on about you: Kaitlin King LPN 09/14/2019 4:10 PM Signed Manda from [facility] Home health calling did visit one time caroli christy delgado for OT patient doing well educated suing bo, famil y will follow through and get one for his use. Deniz Garsia, MSN CORN DETASSELER.WOUND NURSE 09/15/2019 7:26 AM Signed Noted. Deniz Garsia, MSN CORN DETASSELER.WOUND NURSE Allergies As of Date: 09/14/2019 Noted Allergy Reaction MORPHINE 02/28/2005 ROCEPHIN (CEFTRIAXONE SODIUM) 06/20/2014 14 - Other: See Com ments Comments: Hot flashes; redness to skin Date Reviewed: 04/28/2019 Reviewed by: Linwood ([facility]) JAZZY Carpenter - Fully Assessed Reason for [...] mouth once ajay * LANCETS Use with EndorphMeuch Glucometer * ASPIRIN 81 MG TABLET Take [...] 09/15/19 progress on 2019-08 PROGRESS HNO ID: [id number] Normal 09-12-2019 [facility] Author: Jeffy Fontenot [id number] Service: ? Author Type: Registered Nurse Type: Progress Notes Filed: 09/12/2019 3:17 PM Note Text: HIGH RISK CHRONIC DISEASE MONITORING Provider Action/FYI: Spk with Pt who noted was Admitted to [facility] 09/04-09/08/19 for Dx : CHF Pt has a scheduled f/u with Cardiology Dr. Perry 10/07/19. Pt has Appt 09/16/19 with Maryellen Garsia CNP Pt has active My Chart and is interested in Carbider Contact made with patient: Yes Patient identified by name and . Discussed care with patient Hi my name is Corie Bardales, DRAGAN and I am calling from [facility] on behalf of your PCP, [...] like to speak with a social work sales floor team leader to help give you support for any of these needs? No It can be normal to feel anxious or down during a time like this. Would you like to talk to a mental health professional about how y ou have been feeling? No ACTION TAKEN: No action taken APPAREL CUTTER: Patient MyChart status is: Active account Thank [...] dipti l be sent to you via Knowledge Factor once a week for the next few weeks to months . Oonyt is the best way for us to [...] questionnaire will come to you through your Knowledge Factor acco unt and will replace the need for us to call you each week. May I sign yo u up for this? Yes Great! I've set you up to receive the weekly questionnaire. In the meantime, if you have concerns in between our calls, please call your PCP's office right away. Thank you. ACTION TAKEN: Signed patient up for weekly Carbider questionnaire - Entered next patient outreach date [...] CNPTOUTREACH Patient Outreach (FAMPWS) Normal 0 09-12-2019 [place] [facility] LOVELY DEVI ([id number]) 1945 [facility] Date Time Provider Department ([id number]) 09/12/19 JEFFY FONTENOT (RN) FAMPWS During your visit today, we recorded the following informati on about you: Corie Bardales RN 09/12/2019 3:17 PM Signed HIGH RISK CHRONIC DISEASE MONITORING Provider Action/FYI: Spk with Pt who noted was Admitted to [facility] 09/04-09/08/19 for Dx : CHF Pt has a scheduled f/u with Cardiology Dr. Perry 10/07/19. Pt has Appt 09/16/19 with Maryellen Garsia CNP Pt has active My Chart and is interested in Carbider Contact made with patient: Yes Patient identified by name and . Discussed care with patient Hi my name is Corie Bardales RN and I am calling from the [facility] on behalf of your PCP, Morgan Valdez, [...] like to speak with a social work sales floor team leader to help give you support for any of these needs? No It can be normal to feel anxious or down during a time lik e this. Would you like to talk to a mental health professional abo ut how you have been feeling? No ACTION TAKEN: No action taken APPAREL CUTTER: Patient Rodneyhart status is: Active account Thank you for taking the time to talk with me to day. We want to work with you to ensure that we are keeping your medical conditions well-controlled and to keep you healthy and out of the doctor's office or [facility]. Our team would like to stay connected with you to make sure you are feeling well. I am inviting you to complete a short questionnaire th at will be sent to you via Knowledge Factor once a week for the next few weeks t o months. Knowledge Factor is the best way for us to [...] questionnaire will come to you through your Knowledge Factor account and will re place the need for us to call you each week. May I sign you up for this? Yes Great! I've set you up to receive the weekly questionn shemar. In the meantime, if you have concerns in between our call s, please call your PCP's office right away. Thank you. ACTION TAKEN: Signed patient up for weekly Carbider questionnaire - Entered next patient outreach date [...] skin Date Reviewed: 04/28/2019 Reviewed by: Linwood ([facility]) JAZZY Carpenter - Fully Assessed Reason for [...] Encounter Status:Closed by CORIE BARDALES on 09/12/19 [facility]) Normal 09-09-2019 [place] [facility] LOVELY DEVI ([id number]) 1945 [facility] Date Time Provider Department ([id number]) 09/09/19 [facility] During your visit today, we recorded the following informati on about you: Tasha Chan RN 09/09/2019 1:04 PM [facility] oneal POC: nursing will see patient 2 x's week for 9 weeks, for wound care, medication education, and dis ease process teaching. Reports his discharge instructions from hospital, have 2 meds on list, patient reports he hasn't taken in a long time: colestid 1 g bid, and tricor [address] Perry is his sephora operations consultant. Morgan Valdez III MD 09/09/2019 5:58 PM Signed Noted Morgan Valdez III, , FAAFP Allergies As of Date: 09/09/2019 Noted Allergy Reaction MORPHINE 02/28/2005 ROCEPHIN (CEFTRIAXONE SODIUM) 06/20/2014 14 - Other: See Com ments Comments: Hot flashes; redness to skin Date Reviewed: 04/28/2019 Reviewed by: Linwood ([facility]) JAZZY Carpenter - Fully Assessed Reason for Visit: [facility] POC [Other] Prescriptions as of 09/09/2019 [...] mouth once ajay * LANCETS Use with EndorphMeuch Glucometer * ASPIRIN 81 MG TABLET Take [...] III, MD on 09/09/19 yoandy on 2019-09-08 [facility] Normal 09-08-2019 [facility] LOVELY DEVI ([id number]) 1945 [place] Date Time Provider Department ([id number]) 09/08/19 MORGAN VALDEZ III During your visit today, we recorded the following informati on about you: Cindi Eastman LPN 09/08/2019 2:43 PM Signed Melany with [facility] calling to let you know cammie rodriguez being d/c from [facility] today and needs to be followed with nursing, OT and PT. Asking i f you will follow and sign. Please advise Melany. Cindi Valdez III MD 09/08/2019 2:45 PM Signed yes--I will follow FEDERICO Alatorre MD, LPN 09/08/2019 4:42 PM Signed Melany advised of Dr Valdez's verbal orders. Sherill A Hamb el HEDGE TRIMMER Allergies As of Date: 09/08/2019 Noted Allergy Reaction MORPHINE 02/28/2005 ROCEPHIN (CEFTRIAXONE SODIUM) 06/20/2014 14 - Other: See Com ments Comments: Hot flashes; redness to skin Date Reviewed: 04/28/2019 Reviewed by: Linwood ([facility]) JAZZY Carpenter - Fully Assessed Reason for Visit: [facility] orders [Other] Prescriptions as of 09/08/2019 Sig: [...] heart fail*12/17/2018 Encounter Status:Closed by EUFEMIA MAURICE HEDGE TRIMMER on 09/08/19 cnpn on 2019-09-07 [facility] Normal 09-07-2019 [facility] LOVELY DEVI ([id number]) 1945 [place] Date Time Provider Department ([id number]) 09/07/19 BLOSSOM (PHARMACIST)BRIJESH During your visit today, [...] said he was going to go to [facility]. Dipti marks monitor for an update on the patient and updated INR. Joleen Cerrato, PharmD ANSHUL SEBASTIAN 09/14/2019 9:32 AM Signed [facility] Amb[facility] Anticoagulation [facility] Referring provider: No ref. provider found Lovely Devi is a 73 year old year old male patient being evaluated today for anticoagulation Telemanagement visit. Patient is currently on the following anticoagulant Warfarin Labs PT INR (no units) Date Value 11/26/2018 Test sent to [facility]. 10/16/2017 1.8 01/16/2017 Test sent to [facility]. INR (POCT) (no units) Date Value [...] therapeutic ? Pt was recently discharged from [facility]. According to Epic note - he [...] Pharmacy Anticoagulation Clinic Pharmacy Anticoagulation Clinic Pager: [phone] Description Patient has 3 mg tablets of warfarin. Patient takes in the m orning. . Chencho Helms (Nail Maker) 09/14/2019 11:06 AM Signed Patient returned call and is requesting pharmaci st to contact patient after 2 pm today as he is currently not home. Patient can be reached at [phone]. Chencho Helms, Programming Equipment Operator (progressive assembler and fitter) Pharmacy Anticoagulation Clinic JOLEEN CERRATO, PHARMACIST 09/14/2019 [...] skin Date Reviewed: 04/28/2019 Reviewed by: Linwood ([facility]) JAZZY Carpenter - Fully Assessed Reason for [...] on progress on 2019-08 PROGRESS HNO ID: [id number] Normal 09-05-2019 [facility] Author: Staci Almazan MD [place] ([id number]) Service: ? Author Type: Physician Type: Progress Notes Filed: 09/05/2019 3:49 PM Note Text: Virtualist Community Monitoring Note: Adult seen for Monitoring Track: High Risk Chronic Disease Management Contacted by phone, [employer], [employer] Dura[employer], SkPulpWorkse, Zoom, Drobo ity, [employer], other: phone I [...] in EMR. PMH (I reviewed epic, from [facility]) includes NSTEMI, ASHD, isch emic cardiomyopathy, JESSICA, [...] she would take him to [facility]. I called the [facility] [phone] and spoke to charge nurse Cristina and [...] Agudelo wilfredo DATE: September 05, 2019 PAGER/CONTACT: [phone] PROGRESS HNO ID: [id number] Normal 09-05-2019 [facility] Author: Jeffy Fontenot (Dragan) [place] ([id number]) Service: ? Author Type: Registered Nurse Type: [...] Bardales RN and I am calling from [facility] on behalf of your PCP, [...] - routed to RX CLINICAL TRIAGE pool #[id number] and noted symptoms in the FYI box - Informed patient that you re commend further assessment from a provider to review symptoms. End O [facility] / Phone Call Outreach Ended Corie Bardales RN September 05, 2019 1:54 PM PROGRESS HNO ID: [id number] Normal 09-05-2019 [facility] Author: Faye Lara (Pharmacist) [place] ([id number]) Service: ? Author Type: Pharmacist Type: Progress Notes Filed: 09/05/2019 2:23 PM Note Text: Called patient to clarify. He reports significant SOB, barel y can make it to the bathroom. This is new for him. Will page elijahist stella fraser and route high priority to address today. Faye Lara, PharmD, BCACP Primary Care Pharmacist [facility] Patient Outreach (FAMPWS) Normal 0 09-05-2019 [place] [facility] LOVELY DEVI ([id number]) 1945 [facility] Date Time Provider Department ([id number]) 09/05/19 JEFFY FONTENOT (RN) FAMPWS During your [...] RN and I am calling from the [facility] on behalf of your PCP, Morgan Valdez, [...] - routed to RX CLINICAL TRIAGE pool #[id number] and noted symptoms in the FYI box [...] skin Date Reviewed: 04/28/2019 Reviewed by: Linwood ([facility]) JAZZY Carpenter - Fully Assessed Reason for [...] mouth once ajay * LANCETS Use with EndorphMeuch Glucometer * ASPIRIN 81 MG TABLET Take [...] OBSOLETE Refill (PHAMTE) Normal 08-31-2019 [facility] LOVELY DEVI ([id number]) 1945 [place] Date Time Provider Department ([id number]) 08/31/19 MORGAN VALDEZ III During your visit [...] skin Date Reviewed: 04/28/2019 Reviewed by: Linwood ([facility]) JAZZY Carpenter - Fully Assessed Reason for [...] Normal 08-27-2019 [facility] LOVELY DEVI ([id number]) 1945 M [place] Date Time Provider Department ([id number]) 08/27/19 DENIZ GARSIA During your visit today, [...] skin Date Reviewed: 04/28/2019 Reviewed by: Linwood ([facility]) JAZZY Carpenter - Fully Assessed Reason for [...] mouth once ajay * LANCETS Use with EndorphMeuch Glucometer * ASPIRIN 81 MG TABLET Take [...] on 2019-08-26 CNPN Telephone (NRSLME) Normal 08-26-2019 [place] [facility] MERCEDESLOVELY Quincy ([id number]) 1945 [facility] Date Time Provider Department ([id number]) 08/26/19 [facility]NAL ([facility] NRSE During your visit today, we [...] skin Date Reviewed: 04/28/2019 Reviewed by: Linwood ([facility]) JAZZY Carpenter - Fully Assessed Reason for [...] on 2019-08-24 ELBAN Telephone (VAHE) Normal 08-24-2019 [facility] LOVELY DEVI ([id number]) 1945 M [place] Date Time Provider Department () 08/24/19 ANDRE (PHARMACIST)LEE During your visit today, we recorded the following informati on about you: Allergies As of Date: 08/24/2019 Noted Allergy Reaction MORPHINE 02/28/2005 ROCEPHIN (CEFTRIAXONE SODIUM) 06/20/2014 14 - Other: See Com ments Comments: Hot flashes; redness to skin Date Reviewed: 04/28/2019 Reviewed by: Linwood ([facility]) JAZZY Carpenter - Fully Assessed Reason for [...] on progress on 2019-07 PROGRESS HNO ID: [id number] Normal 08-23-2019 [facility] Author: Linwood Fowler) JAZZY Carpenter [place] ([id number]) Service: ? Author Type: Guide Delegate Type: Progress Notes Filed: 08/23/2019 4:03 PM Note Text: Patient notified, voiced understanding. Linwood Carpenter CMA PROGRESS HNO ID: [id number] Normal 08-23-2019 [facility] Author: Morgan Valdze III [place] ([id number]) Service: ? Author Type: Physician Type: Progress Notes Filed: 08/23/2019 3:19 PM Note Text: Staff, Please notify patient that the Covid 19 test obtained on 07/28 12/17 resulted in no detection of the virus. It was negative. He should report persistent or worsening symptoms of Covid 1 9. Morgan Valdez III, MD, FAAFP Morgan Valdez III, MD, FAA PROGRESS HNO ID: [id number] Normal 08-23-2019 [facility] Author: Linwood Fowler) JAZZY Carpenter [place] ([id number]) Service: ? Author Type: Guide Delegate Type: Progress Notes Filed: 08/23/2019 3:14 PM Note Text: Printed, placed on PCP's desk. Linwood Carpenter CMA PROGRESS HNO ID: [id number] Normal 08-23-2019 [facility] Author: Morgan Valdez III [place] ([id number]) Service: ? Author Type: Physician Type: Progress Notes Filed: 08/23/2019 12:34 PM Note Text: Staff, Please check [facility] to obtain Covid 19 results Morgan Valdez III MD PROGRESS HNO ID: [id number] Normal 08-23-2019 [facility] Author: Cara Zhang LPN [place] ([id number]) Service: ? Author Type: ? Type: Progress [...] BRICE and I am calling from the [facility] on behalf of your PCP, [...] - routed to RX CLINICAL TRIAGE pool #[id number] and noted symptoms in the FYI box - Informed patient that you re commend further assessment from a provider to review symptoms. End O atif / Phone Call cnptoutreach on CNPTOUTREACH Patient Outreach (AMBCMG) Normal 0 08-23-2019 [place] [facility] LOVELY DEVI ([id number]) 1945 [facility] Date Time Provider Department ([id number]) 08/23/19 MORGAN VALDEZ III During your visit [...] LPN and I am calling from the [facility] on behalf of your PCP, [...] - routed to RX CLINICAL TRIAGE pool #[id number] and noted symptoms in the FYI box - Informed patient that you recommend further assessment from a provider to review symptoms. End Outreach / Phone Call Morgan Valdez III MD 08/23/2019 12:34 PM Signed Staff, Please check [facility] to obtain Covid 19 results FEDERICO Alatorre [...] FAAFP Morgan Valdez III, MD, FAAFP Linwood Carpenetr CMA, MA 08/23/2019 4:03 PM Signed Patient [...] 08/23/19 progress on 2019-07 PROGRESS HNO ID: [id number] Normal 08-12-2019 [facility] Author: John Suazo RN [place] ([id number]) Service: ? Author Type: ? Type: Progress Notes Filed: 08/12/2019 11:57 AM Note Text: HIGH RISK CHRONIC DISEASE MONITORING Provider Action/FYI: Contact made with patient: Yes Patient identified by name and . Discussed care with patient Hi my name is John Suazo RN and I am calling from the [facility] on behalf of your PCP, Morgan [...] like to speak with a social work sales floor team leader to help give you support for any [...] and out of the doctor's office or [facility]. Our team would like to stay [...] CNPTOUTREACH Patient Outreach (FAMPWS) Normal 0 08-12-2019 [place] [facility] LOVELY DEVI ([id number]) 1945 M [place] Date Time Provider Department ([id number]) 08/12/19 JOHN SUAZO (RN) FAMPWS During your visit today, we recorded the following informati on about you: John Suazo RN 08/12/2019 11:57 AM Signed HIGH RISK CHRONIC DISEASE MONITORING Provider Action/FYI: Contact made with patient: Yes Patient identified by name and . Discussed care with patient Hi my name is John Suazo RN and I am calling from the [facility] on behalf of your PCP, FEDERICO [...] like to speak with a social work sales floor team leader to help give you support for any of these needs? No It can be normal to feel anxious or down during a time lik e this. Would you like to talk to a mental health professional [place] how you have been feeling? No ACTION TAKEN: No action taken Thank you for taking the time to talk with me to day. We want to work with you to ensure that we are keeping your medical conditions well-controlled and to keep you healthy and out of the doctor's office or [facility]. Our team would like to stay [...] skin Date Reviewed: 04/28/2019 Reviewed by: Linwood ([facility]) JAZZY Carpenter - Fully Assessed Reason for [...] on 2019-08-11 CNPN Telephone (NEMOWS) Normal 08-11-2019 [facility] LOVELY DEVI ([id number]) 1945 M [place] Date Time Provider Department ([id number]) 08/11/19 ARIANA BERNAL (ELBA) NEMOWS During your [...] skin Date Reviewed: 04/28/2019 Reviewed by: Linwood ([facility]) JAZZY Carpenter - Fully Assessed Reason for [...] DONNA JOSE LPN on 08/11/19 CNPN Telephone (EDITD) Normal 08-11-2019 [facility] LOVELY DEVI ([id number]) 1945 M [place] Date Time Provider Department ([id number]) 08/11/19 ANUP (PHARMACIST)FAHEEM During your visit today, we recorded the following informati on about you: Anshul Almeida 08/11/2019 4:20 PM Addendum Error Julian Espinosa, PharmD Allergies As of Date: 08/11/2019 Noted Allergy Reaction MORPHINE 02/28/2005 ROCEPHIN (CEFTRIAXONE SODIUM) 06/20/2014 14 - Other: See Com ments Comments: Hot flashes; redness to skin Date Reviewed: 04/28/2019 Reviewed by: Linwood ([facility]) JAZZY Carpenter - Fully Assessed Reason for [...] on 2019-08-10 CNPN Telephone (INTMMN) Normal 08-10-2019 [place] [facility] LOVELY DEVI ([id number]) 1945 M [place] Date Time Provider Department ([id number]) 08/10/19 ANGIE (PHARMACIST)ALEXIA During your visit today, [...] mouth once ajay * LANCETS Use with EndorphMeuch Glucometer * ASPIRIN 81 MG TABLET Take [...] on progress on 2019-07 PROGRESS HNO ID: [id number] Normal 08-05-2019 [facility] Author: John Suazo RN [place] ([id number]) Service: ? Author Type: ? Type: Progress Notes Filed: 08/05/2019 3:25 PM Note Text: HIGH RISK CHRONIC DISEASE MONITORING Provider Action/FYI: Contact made with patient: Yes Patient identified by name and . Discussed care with patient Hi my name is John Suazo RN and I am calling from the [facility] on behalf of your PCP, Morgan [...] like to speak with a social work sales floor team leader to help give you support for any [...] and out of the doctor's office or [facility]. Our team would like to stay [...] Outreach section. cnptoutreach on CNPTOUTREACH [facility] Normal 0 08-05-2019 [place] [facility] LOVELY DEVI ([id number]) 1945 M [place] Date Time Provider Department ([id number]) 08/05/19 JOHN SUAZO (RN) RENEEWS During your visit today, we recorded the following informati on about you: John Suazo RN 08/05/2019 3:25 PM Signed HIGH RISK CHRONIC DISEASE MONITORING Provider Action/FYI: Contact made with patient: Yes Patient identified by name and . Discussed care with patient Hi my name is John Suazo RN and I am calling from the [facility] on behalf of your PCP, FEDERICO [...] like to speak with a social work sales floor team leader to help give you support for any [...] and [facility] Our team would like to stay [...] skin Date Reviewed: 04/28/2019 Reviewed by: Linwood ([facility]) JAZZY Carpenter - Fully Assessed Reason for [...] on 08/05/19 cnpn on 2019-08-02 CNPN Telephone ([facility]) Normal 08-02-2019 [place] [facility] LOVELY DEVI ([id number]) 1945 M [facility] Time Provider Department ([id number]) 08/02/19 MORGAN VALDEZ III During your visit [...] Dr. Merritt wants h im only on wbiq-oys-zreitbc pain medication, then t he patient should [...] 08/02/19 progress on 2019-07 PROGRESS HNO ID: [id number] Normal 07-29-2019 [facility] Author: Vera (Network Navigator) Nakul Amado ([id number]) Service: ? Author Type: Guide Delegate Type: Progress Notes Filed: 07/29/2019 3:10 PM Note Text: HIGH RISK CHRONIC DISEASE MONITORING Provider Action/FYI: Dr. Valdez- pt needs refill of Lasix 40 mg. Please send to [facility] in [place]. Contact made with patient: Yes Patient identified by name and . Discussed care with patient Hi my name is Vera Mota, NETWORK NAVIGATOR and I am callin g from the [facility] on behalf of your PCP, [...] like to speak with a social work sales floor team leader to help give you support for any [...] CNPTOUTREACH Patient Outreach (FAMPWS) Normal 0 07-29-2019 [place] [facility] LOVELY DEVI ([id number]) 1945 M [place] Date Time Provider Department ([id number]) 07/29/19 VERA MOTA (NETWORK NAVIGATOR)FAMPWS During your visit today, we recorded the following informati on about you: RIKY High NAVIGATOR 07/29/2019 3:10 PM Signed HIGH RISK CHRONIC DISEASE MONITORING Provider Action/FYI: Dr. Valdez- pt needs refill of Lasix 40 mg. Please send to [facility] in [place]. Contact made with patient: Yes Patient identified by name and . Discussed care with patient Hi my name is Vera DuncanRIKY mathew NAVIGATOR and I am callin g from the [facility] on behalf of your PCP, [...] like to speak with a social work sales floor team leader to help give you support for any [...] skin Date Reviewed: 04/28/2019 Reviewed by: Linwood ([facility]) JAZZY Carpenter - Fully Assessed Reason for [...] on 07/29/19 elban on 2019-07-27 ELBAN Telephone ([facility]) Normal 07-27-2019 [facility] LOVELY DEVI ([id number]) 1945 M [place] Date Time Provider Department () 07/27/19 BLOSSOM (PHARMACIST)BRIJESH During your visit today, we recorded the following informati on about you: JOLEEN CERRATO PHARMACIST 07/27/2019 11:08 AM Signed [employer] message sent for INR at [facility]. Joleen Cerrato PharmD Allergies As of Date: 07/27/2019 Noted Allergy Reaction MORPHINE 02/28/2005 ROCEPHIN (CEFTRIAXONE SODIUM) 06/20/2014 14 - Other: See Com ments Comments: Hot flashes; redness to skin Date Reviewed: 04/28/2019 Reviewed by: Linwood ([facility]) JAZZY Carpenter - Fully Assessed Reason for [...] on progress on 2019-06 PROGRESS HNO ID: [id number] Normal 07-21-2019 [facility] Author: Becky Garibay [facility] ([id number]) Service: ? Author Type: ? Type: Progress Notes Filed: 07/21/2019 3:21 PM Note Text: HIGH RISK CHRONIC DISEASE MONITORING Provider Action/FYI: Patient states no concerns Contact made with patient: Yes Patient identified by name and . Discussed care with patient Hi my name is Becky Garibay [facility] and I am calling from [facility] on behalf of your PCP, [...] like to speak with a social work sales floor team leader to help give you support for any [...] out of the doctor's office or [facility] Our team would like to stay connected [...] CNPTOUTREACH Patient Outreach (FAMPWS) Normal 0 07-21-2019 [place] [facility] LOVELY DEVI ([id number]) 1945 [facility] Date Time Provider Department ([id number]) 07/21/19 MORGAN VALDEZ III During your visit today, we recorded the following informati on about you: Becky Garibay Pss 07/21/2019 3:21 PM Signed HIGH RISK CHRONIC DISEASE MONITORING Provider Action/FYI: Patient states no concerns Contact made with patient: Yes Patient identified by name and . Discussed care with patient Hi my name is Becky Garibay Pss and I am calling from the [facility] on behalf of your PCP, [...] like to speak with a social work sales floor team leader to help give you support for any [...] and out of the doctor's office or [facility]. Our team would like to stay [...] skin Date Reviewed: 04/28/2019 Reviewed by: Linwood ([facility]) JAZZY Carpenter - Fully Assessed Reason for [...] mouth once ajay * LANCETS Use with OneEndologixuch Glucometer * ASPIRIN 81 MG TABLET Take [...] on 2019-06 OBSOLETE Refill (FAMPWS) Normal 07-18-2019 [facility] LOVELY DEVI ([id number]) 1945 [facility] Time Provider Department ([id number]) 07/18/19 MORGAN VALDEZ III FAMPWS During your [...] Please advise. Thank you. Cindi Garsia, MSN CORN DETASSELER.WOUND NURSE 07/19/2019 8:10 AM Signed The following approved medic ation requests have been transmitted electronically. Signed Prescriptions Disp Refills Insulin Syringe-Needle U-100 (BD ULTRAFINE INSULIN) 1 mL 31 gauge x 5/16 450 Each 3 Si Each five times daily. ZBIGNIEW: No Authorizing Provider: DENIZ GARSIA, MSN CORN DETASSELER.WOUND NURSE Allergies As of Date: 07/18/2019 Noted Allergy Reaction MORPHINE 02/28/2005 ROCEPHIN (CEFTRIAXONE SODIUM) 06/20/2014 14 - Other: See Com ments Comments: Hot flashes; redness to skin Date Reviewed: 04/28/2019 Reviewed by: Linwood ([facility]) JAZZY Carpenter - Fully Assessed Reason for [...] on file. Encounter Status:Closed by DENIZ GARSIA WOUND NURSE on 07/19/19 OBSOLETE Refill (FAMPWS) Normal 07-18-2019 [facility] LOVELY DEVI ([id number]) 1945 [facility] Date Time Provider Department (58206) 07/18/19 DENIZ GARSIAPWS During your visit today, [...] skin Date Reviewed: 04/28/2019 Reviewed by: Linwood ([facility]) JAZZY Carpenter - Fully Assessed Reason for [...] mouth once ajay * LANCETS Use with EndorphMeuch Glucometer * ASPIRIN 81 MG TABLET Take [...] on 07/19/19 cnpn on 2019-07-13 CNPN Telephone ([facility]) Normal 07-13-2019 [facility] LOVELY DEVI ([id number]) 1945 M [place] Date Time Provider Department (18118) 07/13/19 BLOSSOM (PHARMACIST)BRIJESH During your visit today, [...] skin Date Reviewed: 04/28/2019 Reviewed by: Linwood ([facility]) JAZZY Carpenter - Fully Assessed Reason for [...] mouth once ajay * LANCETS Use with EndorphMeuch Glucometer * ASPIRIN 81 MG TABLET Take [...] on progress on 2019-06 PROGRESS HNO ID: [id number] Normal 06-30-2019 [facility] Author: Deniz Amado ([id number]) Service: ? Author Type: Nurse Practitioner Type: Progress Notes Filed: 07/01/2019 11:35 AM Note Text: Noted. Deniz Garsia, MSN CORN DETASSELER.WOUND NURSE progress on 2019-06 PROGRESS HNO ID: [id number] Normal 06-29-2019 [place] Author: Jeffy Fontenot (Rn) Clinic Service: ? [place] Author Type: Registered Nurse ([id number]) Type: Progress Notes Filed: 07/01/2019 11:35 AM [...] concern s Pt reports will f/u with [facility] Cardiology is 6 mths ( Please s ee #6 below: his recent ICD evaluation showed 1 nonsustained VT episode) [facility] 05/30/19 Cardiology Appt with Francis Kwok NP [facility] 06/08/19 ICD Pacemaker Interrogation completed 05/30/19 OV Francis Kwok NP / [facility] Addendum Excerpt noted: Assessment AND Plan 1. 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 Corie Bardales RN June 29, 2019 12:10 PM Corie Bardales RN June 29, 2019 6:57 PM PROGRESS HNO ID: [id number] Normal 06-29-2019 [place] Author: Jeffy Fontenot (Rn) Clinic Service: ? [place] Author Type: Registered Nurse ([id number]) Type: Progress Notes Filed: 07/01/2019 11:35 AM [...] SAMREEN Patient Outreach (FAMPWS) Normal 0 06-29-2019 [facility] LOVELY DEVI ([id number]) 1945 [facility] Date Time Provider Department ([id number]) 06/29/19 JEFFY FONTENOT (RN) FAMPWS During your [...] concern s Pt reports will f/u with [facility] Cardiology is 6 mths ( Pl ease see #6 below: his recent ICD evaluation showed 1 nonsustained VT episode) - [facility] 05/30/19 Cardiology Appt with Francis Kwok NP [facility] 06/08/19 ICD Pacemaker Interrogation completed 05/30/19 OV Francis Kwok NP / [facility] Addendum Excerpt noted: Assessment AND Plan 1. Atherosclerotic heart disease of [place] coronary artery with other forms of angina pectoris I25.118 YWV-Fpcfh-Mnw Cx; PCI-Cutting Balloon Angioplasty of ISR-ost ium [...] History of coronary artery stent placement Z95.5 GPP-Afqut-MV4; PCI-Cutting Balloon Angioplasty of ISR-ostium of prox OM1 11/22/02; PCI-stent to proximal OM1 01/2008; PCI- AYF-CQG-Oihb OM1 w/ 2.5 x 12 mm Promus [...] Orders Orders: 12 Lead EKG performed by [facility] Today 6. 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 Corie Bardales RN June 29, 2019 12:10 PM Corie Bardales RN June 29, 2019 6:57 PM LEATHA Kebede CORN DETASSELER.ELBA 07/01/2019 11:35 AM Signed Noted. 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 provider found Lovely Devi is a 73 year old year old male patient being evaluated today for anticoagulation Telemanagement visit. Patient is currently on the following anticoagulant Warfarin Labs PT INR (no units) Date Value 11/26/2018 Test sent to [facility]. 10/16/2017 1.8 01/16/2017 Test sent to [facility]. INR (POCT) (no units) Date Value [...] Pharmacy Anticoagulation Clinic Pharmacy Anticoagulation Clinic Pager: [phone] Description Patient has 3 mg tablets of warfarin. Patient takes in the m orning. . Allergies As of Date: 06/29/2019 Noted Allergy Reaction MORPHINE 02/28/2005 ROCEPHIN (CEFTRIAXONE SODIUM) 06/20/2014 14 - Other: See Com ments Comments: Hot flashes; redness to skin Date Reviewed: 04/28/2019 Reviewed by: Linwood ([facility]) JAZZY Carpenter - Fully Assessed Reason for [...] on 2019-06-27 CNPN Telephone (FAMPWS) Normal 06-27-2019 [place] [facility] LOVELY DEVI ([id number]) 1945 [facility] Date Time Provider Department ([id number]) 06/27/19 MORGAN VALDEZ III FAMPWS During your [...] skin Date Reviewed: 04/28/2019 Reviewed by: Linwood ([facility]) JAZZY Carpenter - Fully Assessed Reason for [...] Normal 06-25-2019 [facility] LOVELY DEVI ([id number]) 1945 M [place] Date Time Provider Department ([id number]) 06/25/19 MORGAN VALDEZ III FAMPWS During your visit today, we recorded the following informati on about you: Allergies As of Date: 06/25/2019 Noted Allergy Reaction MORPHINE 02/28/2005 ROCEPHIN (CEFTRIAXONE SODIUM) 06/20/2014 14 - Other: See Com ments Comments: Hot flashes; redness to skin Date Reviewed: 04/28/2019 Reviewed by: Linwood ([facility]) JAZZY Carpenter - Fully Assessed Reason for [...] mouth once ajay * LANCETS Use with [employer] Glucometer * ASPIRIN 81 MG TABLET Take [...] on 06/27/19 cnpn on 2019-06-15 CNPN Telephone ([facility]) Normal 06-15-2019 [place] [facility] LOVELY DEVI ([id number]) 1945 M [facility] Time Provider Department ([id number]) 06/15/19 BLOSSOM (PHARMACIST)BRIJESH During your visit today, we recorded the following informati on about you: JOLEEN CERRATO, PHARMACIST 06/15/2019 10:12 AM Signed Tried pt twice but it kept ringing with no answer. Will attempt him later today. Joleen Cerrato, PharmD Pharmacy Antico[facility] Anshul Dailey 06/15/2019 3:15 PM Signed [facility] Referring provider: No ref. provider found Lovely Devi is a 73 year old year old male patient being evaluated today for anticoagulation Telemanagement visit. Patient is currently on the following anticoagulant Warfarin Labs PT INR (no units) Date Value 11/26/2018 Test sent to [facility]. 10/16/2017 1.8 01/16/2017 Test sent to [facility]. INR (POCT) (no units) Date Value [...] Pharmacy Anticoagulation Clinic Pharmacy Anticoagulation Clinic Pager: [phone] Description Patient has 3 mg tablets of warfarin. Patient takes in the m orning. . Allergies As of Date: 06/15/2019 Noted Allergy Reaction MORPHINE 02/28/2005 ROCEPHIN (CEFTRIAXONE SODIUM) 06/20/2014 14 - Other: See Com ments Comments: Hot flashes; redness to skin Date Reviewed: 04/28/2019 Reviewed by: Linwood ([facility]) JAZZY Carpenter - Fully Assessed Reason for [...] mouth once ajay * LANCETS Use with [facility] Glucometer * ASPIRIN 81 MG TABLET Take [...] (PHARMACIST)LACEY on cnpn on 2019-05-25 CNPN Telephone ([facility]) Normal 05-25-2019 [facility] LOVELY DEVI ([id number]) 1945 M [place] Date Time Provider Department ([id number]) 05/25/19 BLOSSOM (PHARMACIST)BRIJESH During your visit today, we recorded the following informati on about you: JOLEEN CERRATO PHARMACIST 05/25/2019 4:52 PM Signed Patient was due to test INR today will continue to monitor f or results. Joleen Cerrato PharmD Pharmacy Anticoagulation Clinic Tahira Moore Pharmacist 06/01/2019 9:01 AM Signed [facility] Referring provider: No ref. provider found Lovely Devi is a 73 year old year old male patient being evaluated today for anticoagulation Telemanagement visit. Patient is currently on the following anticoagulant Warfarin Labs PT INR (no units) Date Value 11/26/2018 Test sent to [facility]. 10/16/2017 1.8 01/16/2017 Test sent to [facility]. INR (POCT) (no units) Date Value [...] was advised to call the [facility] @ [phone] for any questions or concerns. Tahira Moore PharmD Clinical Pharmacist, Pharmacy Anticoagulation Clinic Pharmacy Anticoagulation Clinic Pager: [phone] Description Patient has 3 mg tablets of warfarin. Patient takes in the m orning. . Allergies As of Date: 05/25/2019 Noted Allergy Reaction MORPHINE 02/28/2005 ROCEPHIN (CEFTRIAXONE SODIUM) 06/20/2014 14 - Other: See Com ments Comments: Hot flashes; redness to skin Date Reviewed: 04/28/2019 Reviewed by: Linwood ([facility]) JAZZY Carpenter - Fully Assessed Reason for [...] on progress on 2019-03 PROGRESS HNO ID: [id number] Normal 04-28-2019 [facility] Author: Morgan Valdez III [place] ([id number]) Service: ? Author Type: Physician Type: Progress [...] G47.33 327.23 - fax compliance download to [phone] - flash glucose sensor (FREESTYLE ANITRA 14 [...] mouth once daily. - blood sugar diagnostic ([employer] BLOOD GLUCOSE SYSTEM) test strip Use as [...] of vessel, na tive or graft s/p WA in 1985 - Diverticulosis of colon (without [...] ventricular tachycardia (HCC) - Snoring - Stroke ([facility]) - Tinea of nail 01/13/2011 - [...] 2019-04-28 CNOV Office Visit (FAMPWS) Normal 04-28-19 [facility] LOVELY DEVI ([id number]) 1945 M [place] Date Time Provider Department ([id number]) 04/28/19 10:20 AM MORGAN VALDEZ IIIWS During [...] G47.33 327.23 - fax compliance download to [phone] - flash glucose sensor (FREESTYLE ANITRA 14 [...] mouth once daily. - blood sugar diagnostic ([employer] BLOOD GLUCOSE SYSTEM) test strip Use as [...] TOUCH ULTRASO FT LANCETS) lancets Use with [facility] Glucometer as directed - Aspirin 81 mg [...] of vessel, na tive or graft s/p WA in 1985 - Diverticulosis of colon (without [...] III MD Referring Provider: MORGAN VALDEZ III [[id number]] Allergies As of Date: 04/28/2019 Noted Allergy Reaction MORPHINE 02/28/2005 ROCEPHIN (CEFTRIAXONE SODIUM) 06/20/2014 14 - Other: See Com ments Comments: Hot flashes; redness to skin Date Reviewed: 04/28/2019 Reviewed by: [facility]wood [facility] JAZZY Carpenter - Fully Assessed Reason for [...] Order(s):ALBUMIN/CREAT RATIO RND UR [SQUACR] Order #: [id number] FUTURE HGB A1C [KTRGI7N] Order #: [id number] FUTURE LIPID PANEL BASIC [SQLIPB] Order #: [id number] FUTURE COMP METABOLIC PANEL [SQCMP] Order #: [id number] FUTURE Prescriptions as of 04/28/2019 Sig: FUROSEMIDE [...] 25 Hydroxy 28.0 31.0-80.0 ng/mL Low 0 [facility] (28269) Comment: Result Comment: Classificati on of 25 [place] Vitamin D status: Insufficiency/Moderate Defic iency: < or = 30 ng/mL Sufficiency/Optimal Levels: 31 to 80 ng/mL Toxicity: > 100 ng/mL Test performed by chemilumin escent immunoassay. Performed By: #### VITD, HBA 1C, CMP #### [facility] [address] [place], [place] [address] hemoglobin a1c on HbA1c (Bld) [Mass fraction] 6.8 4.3-5.6 % High [facility] (06536) Comment: Result Comment: [place] Dominique betes Association guidelines indicate that patients with HgbA1c in the range 5.7-6.4% are at increased risk for development of diabetes, and intervention by lifestyle modification may be beneficial. HgbA1c greater o r equal to 6.5% is considered diagnostic of diabetes. Performed By: #### VITD, HBA 1C, CMP ####[facility] [address] [place], [place] [address] HbA1c (Bld) [Mass fraction] 148 mg/dL Normal [facility] (08754) Comment: Result Comment: eAG: (Wilnera devin average glucose) is a calculated value from HgbA1c and is installation service representative of the average blood glucose level in the last 2-3 month period. Performed By: #### VITD, HBA 1C, CMP ####[place] [address] [place] [address] [phone] comp metabolic panel on 2019-04-21 Albumin [Mass/Vol] 4.5 3.9-4.9 g/dL Normal 04-21-2019 [facility] (89087) Comment: Performed By: #### VITD, HBA 1C, CMP ####[place] [address] [place] [address] ALP [Catalytic activity/Vol] 51 38-113 U/L Normal 0 04-21-2019 [facility] (82952) Comment: Performed By: #### VITD, HBA 1C, CMP ####[place] [address] [place] [address] [phone] ALT [Catalytic activity/Vol] 33 10-54 U/L Normal 0 04-21-2019 [facility] (42096) Comment: Performed By: #### VITD, HBA 1C, CMP ####[place] [address] [place] [address] Anion gap [Moles/Vol] 13 9-18 mmol/L Normal 04-21-19 [facility] (03793) Comment: Performed By: #### VITD, HBA 1C, CMP ####[place] [address] [place] [address] [phone] AST [Catalytic activity/Vol] 36 14-40 U/L Normal 0 04-21-2019 [facility] (22658) Comment: Performed By: #### VITD, HBA 1C, CMP ####[place] [address] [place] [address] [phone] Bilirubin [Mass/Vol] 0.6 0.2-1.3 mg/dL Normal 0 [facility] (98756) Comment: Performed By: #### VITD, HBA 1C, CMP ####[place] [address] [place] [address] [phone] Calcium [Mass/Vol] 9.3 8.5-10.2 mg/dL Normal 04-21-2019 [facility] (27850) Comment: Performed By: #### VITD, HBA 1C, CMP ####[place] [address] [address] [place] [address] [phone] Chloride [Moles/Vol] 98 97-105 mmol/L Normal 0 [facility] (15414) Comment: Performed By: #### VITD, HBA 1C, CMP ####[place] [address] [address] [place] [address] [phone] CO2 [Moles/Vol] 27 22-30 mmol/L Normal 04-21-2019 [facility] (99187) Comment: Performed By: #### VITD, HBA 1C, CMP ####[place] [address] [place] [address] [phone] Creatinine [Mass/Vol] 1.35 0.73-1.22 mg/dL High 04-21-19 20 [facility] (06139) Comment: Performed By: #### VITD, HBA 1C, CMP ####[place] [address] [place] [address] [phone] eGFR- Amer. >60 Normal 04-21-2019 [facility] (64535) Comment: Performed By: #### VITD, HBA 1C, CMP ####[place] [address] [place] [address] [phone] GFR/1.73 sq M predicted among 52 . Normal 04-21-2019 [facility] non-blacks MDRD (S/P/Bld) [Vol (47842) rate/Area] Comment: Result Comment: eGFR (Estima devin [...] Performed By: #### VITD, HBA 1C, CMP ####[facility] [place] [address] [phone] Glucose [Mass/Vol] 185 74-99 mg/dL High 04-21-2019 [facility] (74844) Comment: Result Comment: The [place] Diabetes Association (ADA) provides guidance for cutoff [...] for diagnosis of diabetes. Reference: Standards of [facility] Care in Diabetes 2016, [place] Diabetes Association. Diabetes Care. 2016.39(Suppl 1). Performed By: #### VITD, HBA 1C, CMP ####[facility] [address] [place] [address] [phone] Potassium [Moles/Vol] 4.6 3.7-5.1 mmol/L Normal 04-21-19 [facility] (34448) Comment: Performed By: #### VITD, HBA 1C, CMP ####[facility] [address] [place] [address] Protein [Mass/Vol] 7.1 6.3-8.0 g/dL Normal 04-21-2019 [facility] (61614) Comment: Performed By: #### VITD, HBA 1C, CMP ####[facility] [address] [place] [address] [phone] Sodium [Moles/Vol] 138 136-144 mmol/L Normal 04-21-2019 [facility] (83123) Comment: Performed By: #### VITD, HBA 1C, CMP ####[facility] [address] [place] [address] [phone] Urea nitrogen [Mass/Vol] 25 9-24 mg/dL High 04-21 [facility] (05394) Comment: Performed By: #### VITD, HBA 1C, CMP ####[facility] [place] [address] [phone] progress on 2019-03 PROGRESS HNO ID: [id number] Normal 04-19-2019 [facility] Author: Jeffy Fontenot (Rn) [place] ([id number]) Service: ? 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 Author Type: Nurse Practitioner Type: [...] of vessel, na tive or graft s/p [place] in 1985 - Diverticulosis of colon (without [...] - [facility]. Anthony-repeat 3 years-11/2020 - COLONOSCOPY W/BX 02/21/09 - EGD W/O OR W/BRUSH/WASH EGD - EGD W/O OR W/BRUSH/WASH 02/16/08 EGD inpt [facility] H-pylori negative - EGD W/O OR W/BRUSH/WASH 05/24/15 EGD - EGD W/O OR W/BRUSH/WASH 12/21/2017 Dr. Anthony-repeat 3 years-11/2020 - HEART CATHETERIZATION 12/15/2014 [facility] - see scanned documents - HEART [...] G47.33 327.23 - fax compliance download to [phone] flash glucose sensor (FREESTYLE ANITRA 14 DAY [...] by mouth once daily. blood sugar diagnostic ([employer] BLOOD GLUCOSE SYSTEM) test s trip Use [...] (ONE TOUCH ULTRASOFT LANCETS) lancets Use with [facility] Glucometer as directed Aspirin 81 mg [...] including hand washing. - Instructed to call financial operations analyst or go to ED if high fev [...] and symptoms. All questions addressed. Ariana Arias APRN.WOUND NURSE cnov on 2019-04-05 CNOV Office Visit (UCWSTR) Normal 04-05-19 [place] [facility] LOVELY DEVI ([id number]) 1945 M [place] Date Time Provider Department ([id number]) 04/05/19 11:15 AM ARIANA ARIAS [facility] During your visit today, we recorded [...] of vessel, na tive or graft s/p [place] in 1985 - Diverticulosis of colon (without [...] Laterality Date - COLONOSCOP W/ OR W/O [facility] SPEC 12/21/2017 Dr. Anthony-repeat 3 years-11/2020 - COLONOSCOPY W/BX 02/21/09 - EGD W/O OR W/BRUSH/WASH EGD - E[facility]O [facility] - [facility] W/O OR W/BRUSH/WASH 05/24/15 EGD - EGD W/O OR W/BRUSH/WASH 12/21/2017 Dr. Anthony-repeat 3 years-11/2020 - HEART CATHETERIZATION 12/15/2014 [facility] - see scanned documents - HEART [...] G47.33 327.23 - fax compliance download to [phone] flash glucose sensor (FREESTYLE ANITRA 14 DAY [...] by mouth once daily. blood sugar diagnostic ([employer] BLOOD GLUCOSE SYSTEM) test s trip Use [...] including hand washing. - Instructed to call financial operations analyst or go to ED if high fever, [...] e person should be evaluated by an financial operations analyst. Contact lens wearers ? People who wear [...] within two weeks, an examination with an financial operations analyst may be recomme nded. CONJUNCTIVITIS PREVENTION Bacterial [...] person melinda uld be evaluated by an financial operations analyst. Contact lens wearers ? People who wear [...] touching their eyes, should probably not attend [facility] until the discharge has resolved. Older [...] 25 Hydroxy 25.2 31.0-80.0 ng/mL Low 9 [facility] (36085) Comment: Result Comment: Classificati on of 25 [place] Vitamin D status: Insufficiency/Moderate Defic iency: < or = 30 ng/mL Sufficiency/Optimal Levels: 31 to 80 ng/mL Toxicity: > 100 ng/mL Test performed by chemilumin escent immunoassay. Performed By: #### FERR, VIT D, IRON, TSH #### [facility] [address] [place] [id number] tsh on 2019-03-24 TSH Qn 2.590 0.270-4.200 uU/mL Normal 03-24-2019 [facility] (32637) Comment: Performed By: #### FERR, VIT D, IRON, TSH #### [facility] [address] [place] [phone] progress on 2019-02 PROGRESS HNO ID: [id number] Normal 03-24-2019 [place] Author: Ariana Richey) [facility] Service: ? [place] Author Type: Nurse Practitioner ([id number]) Type: Progress Notes Filed: 03/24/2019 4:47 PM Note Text: [facility] Follow-up/Established patient visit Date of last visit: 01/26/19 ? Sleep Disorder Dx Impression: Obstructive sleep apnea -?Compliant and beneffiting Residual daytime sleepiness.? ? Psychiatric Diagnoses: na ? Other Conditioning Diagnoses CAD, Afib, Petit's. Cardiomegaly, Obesity, Dysphagia, HTN, Reflux, DM2,?Neck mass lower left neck ? Case Formulation / [place] (may include pt's hopes, fears, ex pectations, [...] MD ? For this visit, a total jfyl-sm-fgwr time with the patient c omprised 30 [...] taking. SLEEP APNEA Sleep apnea type : JESSCIA, Most Recent Apnea-Hypopnea Index (AHI): 34.6 Treatment [...] of vessel, na tive or graft s/p [place] in 1985 - Diverticulosis of colon (without [...] G47.33 327.23 - fax compliance download to [phone] flash glucose sensor (FREESTYLE ANITRA 14 DAY [...] by mouth once daily. blood sugar diagnostic ([employer] BLOOD GLUCOSE SYSTEM) test s trip Use [...] depending on your insurance coverage. Contact your [employer] company for new supplies as needed. - Patient to talk to [facility] at [facility] on mask fit. If unab le [...] Follow up in 3 month(s). Ariana Bernal APRN.WOUND NURSE PROGRESS HNO ID: [id number] Normal 03-24-2019 [place] Author: Deniz George [facility] Service: ? [place] Author Type: ? (0000 0) Type: Progress Notes Filed: 03/24/2019 10:54 AM Note Text: iron and tibc on 17-03-26 Iron [Mass/Vol] 102 41-186 ug/dL Normal 03-24-2019 [facility] (42909) Comment: Performed By: #### FERR, VIT D, IRON, TSH #### [facility] [address] [place], [place] [address] TIBC 402 232-386 ug/dL High 03-24-2019 [facility] (91816) Comment: Performed By: #### FERR, VIT D, IRON, TSH #### [facility] [address] [place], [place] [address] Transferrin Saturatn 25 15-57 % Normal 9 [facility] (48455) Comment: Performed By: #### FERR, VIT D, IRON, TSH #### [facility] [address] [place], [place] [address] ferritin on 2019-02 Ferritin [Mass/Vol] 61.8 30.3-565.7 ng/mL Normal 9 [facility] (69338) Comment: Performed By: #### FERR, VIT D, IRON, TSH #### [facility] [address] [place], [place] [address] cnov on 2019-03-24 CNOV Office Visit (NEMOWS) Normal 03-24-[address] [place] [address] [facility] LOVELY DEVI ([id number]) 1945 [facility] Date Time Provider Department (11896) 03/24/19 11:00 AM ARIANA BERNAL (ELBA) NEMOWS During your visit today, we recorded the following informati on about you: Pulse Respiration Blood pressure Weight 62/minute 16/minute 123/58 122.5 kg Deniz George LPN 03/24/2019 10:54 AM Signed Ariana Bernal APRN.ELBA 03/24/2019 4:47 PM Signed [facility] Follow-up/Established patient visit Date of last visit: 01/26/19 ? Sleep Disorder Dx Impression: Obstructive sleep apnea -?Compliant and beneffiting Residual daytime sleepiness.? ? Psychiatric Diagnoses: na ? Other Conditioning Diagnoses CAD, Afib, Petit's. Cardiomegaly, Obes ity, Dysphagia, HTN, Reflux, DM2,?Neck mass lower left neck ? Case Formulation / [place] (may include pt's hopes, fears, ex pectations, [...] MD ? For this visit, a total umvt-fc-wwxu time with the patient c omprised 30 minutes, with at least 50% of that time devoted to pjhc-rk-dccj counseling and coordination of care, with especial [...] of vessel, na tive or graft s/p [place] in 1985 - Diverticulosis of colon (without [...] disease, with long-term current use of insulin ([facility]) 06/15/2017 - Unspecified essential hypertension PSH, [...] G47.33 327.23 - fax compliance download to [phone] flash glucose sensor (FREESTYLE ANITRA 14 DAY [...] by mouth once daily. blood sugar diagnostic ([employer] BLOOD GLUCOSE SYSTEM) test s trip Use [...] TOUCH ULTRASOFT LANCETS) lancets Us e with [employer] Glucometer as directed Aspirin 81 mg ORAL [...] depending on your insurance coverage. Contact your [facility] [employer] company for new supplies as needed. - [...] covered by insurance. Referring Provider: NIK PUENTE [[id number]] Allergies As of Date: 03/24/2019 Noted Allergy Reaction MORPHINE 02/28/2005 ROCEPHIN (CEFTRIAXONE SODIUM) 06/20/2014 14 - Other: See Com ments Comments: Hot flashes; redness to skin Date Reviewed: 03/24/2019 Reviewed by: Ariana (Lining Repairer) Gabe - Fully Assessed Reason for Visit: [...] tabletRfl: 1 FERRITIN BLD [SQFERR] Order #: [id number] FUTURE IRON + TIBC [SQIRON] Order #: [id number] FUTURE TSH BLD [SQTSH] Order #: [id number] FUTURE VITAMIN D 25 HYDROXY [SQVITD] Order #: [id number] FUTURE rOPINIRole (REQUIP) 0.5 mg tabletTake 1 [...] Neurocardiogenic syncope [R55] 03/01/2015 Dysphagia [R13.10] 03/01/2015 Peitt's esophagus with esophagitis [K22.70, K*03/01/2015 Bilateral carotid [...] file. Cosign accepted by MORGAN VALDEZ III, MD[[id number]] on 06/18/19 13 5:06 PM traZODone (DESYREL) 50 mg tablet 30 t* 0 02/17/2019 03/24/20 Route: ORAL Sig: Take 1 tablet by mouth daily at bedtime. Disc: Reason for discontinue is not on file. Disposition: Return in about 3 months (around 06/23/2019). Follow-up and Disposition History Recorded Encounter Status:Closed by ARIANA BERNAL on 03/24/19 progress on 2019-01 PROGRESS HNO ID: [id number] Normal 02-21-2019 [facility] Author: Linwood Carpenter MA [place] ([id number]) Service: ? Author Type: Guide Delegate Type: Progress Notes Filed: 02/21/2019 7:22 PM Note Text: Per PCP written response: PCP in agreement with instructions below. Linwood Carpenter CMA PROGRESS HNO ID: [id number] Normal 02-21-2019 [facility] Author: Melany Yuen RN [place] ([id number]) Service: ? Author Type: ? Type: Progress Notes Filed: 02/21/2019 10:36 AM Note Text: patient had inr completed at [facility] patients inr is 2.9 (patients inr [...] on 2019-01 OBSOLETE Refill (NEMOWS) Normal 02-17-2019 [facility] LOVELY DEVI ([id number]) 1945 M [place] Date Time Provider Department (01615) 02/17/19 NIK PUENTE During your visit today, [...] lower left neck ? Case Formulation / [place] (may include pt's hopes, fears, ex pectations, [...] skin Date Reviewed: 01/26/2019 Reviewed by: Linwood ([facility]) JAZZY Carpenter - Fully Assessed Reason for Visit: Refill Request [94] Order(s):traZODone (DESYREL) 50 mg tabletTake 1 tablet by mo [facility] daily at bedtime.Disp: 30 tabletRfl: 0 [...] Normal 02-17-2019 [facility] LOVELY DEVI ([id number]) 1945 [facility] Date Time Provider Department (54551) 02/17/19 DENIZ GARSIA During your visit today, [...] skin Date Reviewed: 01/26/2019 Reviewed by: Linwood ([facility]) JAZZY Carpenter - Fully Assessed Reason for [...] mouth once ajay * LANCETS Use with [employer] Glucometer * COLESTIPOL 1 GRAM TABLET Take [...] on file. Encounter Status:Closed by DENIZ GARSIA WOUND NURSE on 02/17/19 obsolete on 2019-01 OBSOLETE Refill (FAMPWS) Normal 02-04-2019 [facility] LOVELY DEVI ([id number]) 1945 M [place] Date Time Provider Department ([id number]) 02/04/19 MORGAN VALDEZ III During your visit [...] skin Date Reviewed: 01/26/2019 Reviewed by: Linwood ([facility]) JAZZY Carpenter - Fully Assessed Reason for [...] mouth once ajay * LANCETS Use with [employer] Glucometer * COLESTIPOL 1 GRAM TABLET Take [...] 02/04/19 progress on 2018-12 PROGRESS HNO ID: [id number] Normal 01-26-2019 [facility] Author: Morgan Valdez III [place] ([id number]) Service: ? Author Type: Physician Type: Progress [...] G47.33 327.23 - fax compliance download to [phone] flash glucose sensor (FREESTYLE ANITRA 14 DAY [...] by mouth once daily. blood sugar diagnostic ([employer] BLOOD GLUCOSE SYSTEM) test s trip Use [...] of vessel, na tive or graft s/p [place] in 1985 - Diverticulosis of colon (without [...] Alatorre MD, III MD PROGRESS HNO ID: [id number] Normal 01-26-2019 [facility] Author: Nik Amado ([id number]) Service: ? Author Type: Physician Type: Progress Notes Filed: 01/26/2019 12:22 PM Note Text: [facility] Follow-up/Established patient visit Reason for Visit: med review. Time Out: 9:10 Time In: 8:53 For this visit, a total rkcn-ik-edhv time with the patient c omprised 15 [...] lower left neck. ? Case Formulation / [place] (may include pt's hopes, fears, ex pectations, [...] G47.33 327.23 - fax compliance download to [phone] flash glucose sensor (FREESTYLE ANITRA 14 DAY [...] by mouth once daily. blood sugar diagnostic ([employer] BLOOD GLUCOSE SYSTEM) test s trip Use [...] mass lower left neck Case Formulation / [place] (may include pt's hopes, fears, ex pectations, [...] CNOV Office Visit (FAMPWS) Normal 01-27-20 19 [place] [facility] LOVELY DEVI ([id number]) 1945 [facility] Date Time Provider Department ([id number]) 01/26/19 9:40 AM MORGAN VALDEZ III FAMPWS [...] humidity and lifetime supplies. Dx. JESSICA G47.33 327.27 - fax compliance download to [phone] flash glucose sensor (FREESTYLE ANITRA 14 DAY [...] by mouth once daily. blood sugar diagnostic ([employer] BLOOD GLUCOSE SYSTEM) test s trip Use [...] TOUCH ULTRASOFT LANCETS) lancets Us e with EndorphMeuch Glucometer as directed colestipol 1 gram tablet [...] of vessel, na tive or graft s/p [place] in 1985 - Diverticulosis of colon (without [...] disease, with long-term current use of insulin ([facility]) 06/15/2017 - Unspecified essential hypertension FAMILY [...] III MD Referring Provider: MORGAN VALDEZ III [[id number]] Allergies As of Date: 01/26/2019 Noted Allergy Reaction MORPHINE 02/28/2005 ROCEPHIN (CEFTRIAXONE SODIUM) 06/20/2014 14 - Other: See Com ments Comments: Hot flashes; redness to skin Date Reviewed: 01/26/2019 Reviewed by: Linwood ([facility]) JAZZY Carpenter - Fully Assessed Reason for Visit: 3 month check up [Other] Primary Visit Diagnosis:Type 2 diabetes mellitus with st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, with long-term current use of insulin ([facility]) [E11.22, N18.3, Z79.4] Other Visit Diagnoses:Acute on chronic systolic congestive h eart failure ([facility]) [I50.23] Class 2 severe obesity due to excess calories with serious comorbidity and body mass index (BMI) of 38.0 to 38.9 in adult ([facility]) [E66.01, Z68.38] ASHD (arteriosclerotic heart disease) [I25.10] Paroxysmal atrial fibrillation ([facility]) [I48.0] Anticoagulated on Coumadin [Z79.01] Controlled type 2 diabetes mellitus without complication, with long-term current use of insulin ([facility]) [E11.9, Z79.4] Vitamin D 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] Order(s):HGB A1C [YXKGT0J] Order #: [id number] FUTURE COMP METABOLIC PANEL [SQCMP] Order #: [id number] FUTURE insulin lispro (HUMALOG U-100 INSULIN) 100 unit/mL injection 18 units with breakfast, 17 units at lunch, and 24 units with supper. Disp: Rfl: VITAMIN D 25 HYDROXY [SQVITD] Order #: [id number] FUTURE Prescriptions as of 01/26/2019 Sig: TRAZODONE [...] 01/26/19 [place] Office Visit ([place]) Normal 01-27-20 [place] [facility] LOVELY DEVI ([id number]) 1945 M [place] Date Time Provider Department ([id number]) 01/26/19 8:40 AM NIK PUENTE During your visit today, we recorded the following informati on about you: Pulse Respiration Blood pressure Weight 60/minute 20/minute 130/82 121.1 kg Nik Puente MD 01/26/2019 12:22 PM Signed [facility] Follow-up/Established patient visit Reason for Visit: med review. Time Out: 9:10 Time In: 8:53 For this visit, a total jmqg-qh-mbsn time with the patient c omprised 15 minutes, with at least 50% of that time devoted to cllz-aa-segy counseling and coordination of care, with especial emph asis placed on answering the patient?s and/or family?s questions in a form that they can unde rstand and appreciate. Relevant Medications, allergies, hx Reviewed: yes Date of last visit: 11/24/18 Insurance: Medicare Home Location: [place] From Last Visit: Sleep Disorder Dx Impression: Obstructive sleep apnea -?Compliant and beneffiting Residual daytime sleepiness.? ? Psychiatric Diagnoses: na ? Other Conditioning Diagnoses CAD, Afib, Petit's. Cardiomegaly, Obes ity, Dysphagia, HTN, Reflux, DM2,?Neck mass lower left neck. ? Case Formulation / [place] (may include pt's hopes, fears, ex pectations, [...] G47.33 327.23 - fax compliance download to [phone] flash glucose sensor (FREESTYLE ANITRA 14 DAY [...] by mouth once daily. blood sugar diagnostic ([employer] BLOOD GLUCOSE SYSTEM) test s trip Use [...] mass lower left neck Case Formulation / [place] (may include pt's hopes, fears, ex pectations, [...] Nik Puente MD Referring Provider: ARIANA BERNAL ([facility] [[id number]] Allergies As of Date: 01/26/2019 Noted Allergy Reaction MORPHINE 02/28/2005 ROCEPHIN (CEFTRIAXONE SODIUM) 06/20/2014 14 - Other: See Com ments Comments: Hot flashes; redness to skin Date Reviewed: 01/26/2019 Reviewed by: Linwood ([facility]) JAZZY Carpenter - Fully Assessed Reason for [...] (BMI) of 38.0 to 38.9 in adult ([facility]) [E66.01, Z68.38] 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, 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, with long-term current use of insulin ([facility]) [E11.22, N18.3, Z79.4] Localized swelling, mass and lump, neck [R22.1] Type 2 diabetes mellitus with peripheral neuropathy ([facility]) [E11.42] Order(s):traZODone (DESYREL) 50 mg tabletTake [...] mouth once ajay * LANCETS Use with EndorphMeuch Glucometer * COLESTIPOL 1 GRAM TABLET Take [...] 01/26/19 progress on 2018-12 PROGRESS HNO ID: [id number] Normal 01-24-2019 [facility] Author: Linwood Carpenter MA [place] ([id number]) Service: ? Author Type: Guide Delegate Type: Progress Notes Filed: 01/24/2019 4:23 PM Note Text: Per PCP written response: PCP in agreement with instructions below. Tracker updated. Linwood Carpenter CMA PROGRESS HNO ID: [id number] Normal 01-24-2019 [facility] Author: eMlany Yuen RN [place] ([id number]) Service: ? Author Type: ? Type: Progress Notes Filed: 01/24/2019 10:44 AM Note Text: patient had inr completed at [facility] patients inr is 2.9 (patients inr [...] INR. progress on 2018-12 PROGRESS HNO ID: [id number] Normal 01-17-2019 [facility] Author: Linwood Carpenter MA [place] ([id number]) Service: ? Author Type: Guide Delegate Type: Progress Notes Filed: 01/17/2019 4:16 PM Note Text: Per PCP written response: Same coumadin, recheck on 01/31 as scheduled. Tracker updated . Patient notified, voiced understanding. Linwood Carpenter CMA PROGRESS HNO ID: [id number] Normal 01-17-2019 [facility] Author: Melany Yuen RN [place] ([id number]) Service: ? Author Type: ? Type: Progress [...] Cholesterol [Mass/Vol] 118 <200 mg/dL Normal 019 [facility] (48278) Comment: Result Comment: <200 mg/dL, Desirable 200-239 mg/dL, Borderline hi gh >239 mg/dL, High Performed By: #### CMP, LIPB , HBA1C ####[facility] [address] [place] [address] [phone] Cholesterol in HDL [Mass/Vol] 32 >39 mg/dL Low 01-14-2019 [facility] (02864) Comment: Result Comment: 40-59 mg/dL, Acceptable >59 mg/dL, High: Negative ri sk factor for coronary heart disease <40 mg/dL, Low: Positive ris k factor for coronary heart disease Performed By: #### CMP, LIPB , HBA1C ####[facility] [address] [place] [address] [phone] Cholesterol in LDL 52 <100 mg/dL Normal 01-14-2019 [facility] [Mass/Vol] [place] (10878) Comment: Result Comment: <100 mg/dL, Optimal 100-129 mg/dL, Near optimal/ above optimal 130-159 mg/dL, Borderline hi gh 160-189 mg/dL, High >189 mg/dL, Very high Secondary prevention optimal LDL Cholesterol levels are recommended to be < 70 mg/dL Performed By: #### CMP, LIPB , HBA1C ####[place] [address] [phone] Fasting Time 13 hrs Normal 01-14-2019 [facility] (07194) Comment: Performed By: #### CMP, LIPB , HBA1C ####[place] [address] [phone] LDL:HDL Ratio 1.63 <2.54 Normal 01-14-2019 [facility] (18551) Comment: Result Comment: Reference: 1. National Cholesterol Educ ation Program ATP III Guideline At-A-Glance Quick Desk Reference: National Heart, Lung, and Blood Healy. National Institutes of Health. 2001: NIH Publication No. 01-3305. 2. An International Atherosc lerosis Society position paper: global recommendations for the management of dyslipidemia: executive summary, Atherosclerosis. 2014: 232(2):410-413. Performed By: #### CMP, LIPB , HBA1C ####[place] [address] [phone] Non HDL Cholesterol 86 <130 mg/dL Normal 01-14-2019 [facility] (29385) Comment: Result Comment: <130 mg/dL, Optimal 130-159 mg/dL, Near optimal/ above optimal 160-189 mg/dL, Borderline hi gh 190-219 mg/dL, High >219 mg/dL, Very high Secondary prevention optimal non HDL Cholesterol levels are recommended to be < 100 mg/dL Performed By: #### CMP, LIPB , HBA1C ####[place] [address] [phone] TC:HDL Ratio 3.69 <5.10 Normal 01-14-2019 [facility] (27544) Comment: Performed By: #### CMP, LIPB , HBA1C ####[place] [address] [phone] Triglyceride [Mass/Vol] 172 <150 mg/dL High 2018 [facility] (86938) Comment: Result Comment: <150 mg/dL, Normal 150-199 mg/dL, Borderline hi gh 200-499 mg/dL, High >499 mg/dL, Very high Performed By: #### CMP, LIPB , HBA1C ####[address] [place] [address] [phone] VLDL Cholesterol 34 <30 mg/dL High 01-14-2019 [facility] (53625) Comment: Performed By: #### CMP, LIPB , HBA1C ####[address] [place] [address] [phone] hemoglobin a1c on 2 HbA1c (Bld) [Mass fraction] 7.3 4.3-5.6 % High [facility] (00207) Comment: Result Comment: [place] Dominique betes Association guidelines indicate that patients with HgbA1c in the range 5.7-6.4% are at increased risk for development of diabetes, and intervention by lifestyle modification may be beneficial. HgbA1c greater o r equal to 6.5% is considered diagnostic of diabetes. Performed By: #### CMP, LIPB , HBA1C ####[place] [address] [phone] HbA1c (Bld) [Mass fraction] 163 mg/dL Normal [facility] (09311) Comment: Result Comment: eAG: (Estima devin average glucose) is a calculated value from HgbA1c and is installation service representative of the average blood glucose level in the last 2-3 month period. Performed By: #### CMP, LIPB , HBA1C ####[place] [address] [address] [place] [address] [phone] comp metabolic panel on 2019-01-14 Albumin [Mass/Vol] 4.3 3.9-4.9 g/dL Normal 01-14-2019 [facility] (03625) Comment: Performed By: #### CMP, LIPB , HBA1C ####[address] [place] [address] [phone] ALP [Catalytic activity/Vol] 54 38-113 U/L Normal 1 [facility] (17501) Comment: Performed By: #### CMP, LIPB , HBA1C ####[place] [address] [address] [place] [address] [phone] ALT [Catalytic activity/Vol] 23 10-54 U/L Normal 1 [facility] (43087) Comment: Performed By: #### CMP, LIPB , HBA1C ####[place] [address] [address] [place] [address] Anion gap [Moles/Vol] 11 9-18 mmol/L Normal 01-15-20 19 [facility] (08854) Comment: Performed By: #### CMP, LIPB , HBA1C ####[place] [address] [address] [place] [address] AST [Catalytic activity/Vol] 25 14-40 U/L Normal 1 [facility] (27281) Comment: Performed By: #### CMP, LIPB , HBA1C ####[place] [address] [address] [place] [address] Bilirubin [Mass/Vol] 0.7 0.2-1.3 mg/dL Normal 9 [facility] (19049) Comment: Performed By: #### CMP, LIPB , HBA1C ####[place] [address] [address] [place] [address] Calcium [Mass/Vol] 8.6 8.5-10.2 mg/dL Normal 01-14-2019 [facility] (19696) Comment: Performed By: #### CMP, LIPB , HBA1C ####[place] [address] [address] [place] [address] [phone] Chloride [Moles/Vol] 102 97-105 mmol/L Normal 9 [facility] (45105) Comment: Performed By: #### CMP, LIPB , HBA1C ####[place] [address] [address] [place] [address] CO2 [Moles/Vol] 27 22-30 mmol/L Normal 01-14-2019 [facility] (86635) Comment: Performed By: #### CMP, LIPB , HBA1C ####[facility] [address] [place] [place] [address] Creatinine [Mass/Vol] 1.24 0.73-1.22 mg/dL High 01-15-20 19 [facility] (08281) Comment: Performed By: #### CMP, LIPB , HBA1C ####[facility] [address] [place] [address] eGFR- Amer. >60 Normal 01-14-2019 [facility] (15469) Comment: Performed By: #### CMP, LIPB , HBA1C ####[facility] [place] [address] GFR/1.73 sq M predicted among 57 . Normal 01-14-2019 [facility] non-blacks MDRD (S/P/Bld) [Vol (89614) rate/Area] Comment: Result Comment: eGFR (Estima devin [...] Performed By: #### CMP, LIPB , HBA1C ####[facility] [address] [place] [address] [phone] Glucose [Mass/Vol] 191 74-99 mg/dL High 01-14-2019 [facility] (99475) Comment: Result Comment: The [place] Diabetes Association (ADA) provides guidance for cutoff [...] for diagnosis of diabetes. Reference: Standards of [facility] Care in Diabetes 2016, [place] Diabetes Association. Diabetes Care. 2016.39(Suppl 1). Performed By: #### CMP, LIPB , HBA1C ####[place] [id number] [place] [address] [phone] Potassium [Moles/Vol] 4.5 3.7-5.1 mmol/L Normal 01-15-20 19 [facility] (45912) Comment: Performed By: #### CMP, LIPB , HBA1C ####[place] [id number] [place] [address] [phone] Protein [Mass/Vol] 6.7 6.3-8.0 g/dL Normal 01-14-2019 [facility] (98272) Comment: Performed By: #### CMP, LIPB , HBA1C ####[facility] [place] [address] [phone] Sodium [Moles/Vol] 140 136-144 mmol/L Normal 01-14-2019 [facility] (76856) Comment: Performed By: #### CMP, LIPB , HBA1C ####[facility] [place] [address] [phone] Urea nitrogen [Mass/Vol] 23 9-24 mg/dL Normal 01-14 [facility] (05289) Comment: Performed By: #### CMP, LIPB , HBA1C ####[facility] [place] [address] [phone] cnnurse on [facility] Nurse Visit (FAMPWS) Normal 9 [place] LOVELY DEVI ([id number]) 1945 M [place] Date Time Provider Department (71460) 01/14/19 11:20 AM [place] NURSE SABI During your visit today, we recorded the following informati on about you: Referring Provider: SELF [200] Allergies As of Date: 01/14/2019 Noted Allergy Reaction MORPHINE 02/28/2005 ROCEPHIN (CEFTRIAXONE SODIUM) 06/20/2014 14 - Other: See Com ments Comments: Hot flashes; redness to skin Date Reviewed: 12/17/2018 Reviewed by: Eufemia aMurice LPN - Fully Assessed Reason for Visit: [...] mouth once ajay * LANCETS Use with [facility] Glucometer * COLESTIPOL 1 GRAM TABLET Take [...] 2019-01-14 Absolute nRBC <0.01 <0.01 Normal 01-14-2019 [facility] (25302) Comment: Performed By: #### CBC #### [facility] [address] [place], [place] [address] Erythrocyte distribution 14.6 11.5-15.0 % Normal 01-14 [facility] width (RBC) [Ratio] [place] (12268) Comment: Performed By: #### CBC #### [facility] [address] [place], [place] [address] Hematocrit (Bld) [Volume 37.9 39.0-51.0 % Low 01-14 [facility] fraction] (22281) Comment: Performed By: #### CBC #### [facility] [address] [place], [place] [address] Hemoglobin (Bld) 12.0 13.0-17.0 g/dL Low 01-14-2019 Cl [facility] [Mass/Vol] [place] (07856) Comment: Performed By: #### CBC #### [facility] [place], [place] [address] MCH (RBC) [Entitic mass] 29.4 26.0-34.0 pG Normal 01-14 [facility] (86070) Comment: Performed By: #### CBC #### [facility] [address] [place], [place] [address] MCHC (RBC) [Mass/Vol] 31.7 30.5-36.0 g/dL Normal 01-15-20 19 [facility] (62427) Comment: Performed By: #### CBC #### [facility] [address] [place] [address] MCV (RBC) [Entitic vol] 92.9 80.0-100.0 fL Normal 01-14 [facility] (87674) Comment: Performed By: #### CBC #### [facility] [address] [address] Platelet mean volume 10.5 9.0-12.7 fL Normal 9 [facility] (Bld) [Entitic vol] [place] (67289) Comment: Performed By: #### CBC #### [address] [address] Platelets (Bld) [#/Vol] 154 150-400 k/uL Normal 2018 [facility] (09230) Comment: Performed By: #### CBC #### [address] [address] RBC (Bld) [#/Vol] 4.08 4.20-6.00 m/uL Low 01-14-2019 C [facility] (22416) Comment: Performed By: #### CBC #### [facility] [address] [place], [place] [address] WBC (Bld) [#/Vol] 4.90 3.70-11.00 k/uL Normal 01-14-2019 [facility] (55211) Comment: Performed By: #### CBC #### [facility] [address] [place] [phone] albumin/creat ratio on 2019-01-14 Albumin Urine Random 15.6 mg/L Normal 9 [facility] (15040) Comment: Performed By: #### UACR #### [place] [address] [place], [place] [phone] Albumin/Creat Ratio 8 <30 mg/g Normal 01-14-2019 [facility] (98697) Comment: Result Comment: Adult Male a nd [...] 3(1), 1-150. Performed By: #### UACR #### [place] [address] [place], [place] [phone] Creatinine,Urine,Ran 206.0 20-300 mg/dL Normal 9 [facility] (83623) Comment: Performed By: #### UACR #### [facility] [place], [place] [phone] cnptoutreach on 12-07-14 CNPTOUTREACH Patient Outreach (FAMPST) Normal 1 [facility] ANA ROSAALMITALOVELY CARY ([id number]) 1945 [facility] Date Time Provider Department (32738) 01/11/19 MORGAN VALDEZ III During your visit [...] Order(s):ALBUMIN/CREAT RATIO RND UR [SQUACR] Order #: [id number] FUTURE CBC [SQCBC] Order #: [id number] FUTURE Prescriptions as of 01/11/2019 Sig: LISINOPRIL [...] mouth once ajay * LANCETS Use with [facility] Glucometer * COLESTIPOL 1 GRAM TABLET Take [...] congestive heart fail*INVALID FOR* Encounter Status:Closed by [employer], PRODUSER on 01/26/19 main or intraop record on 2017-02-23 Main OR Intraop Record Normal 02-23- 017 [facility]) (17232) progress note-nurse on 2017-02-17 Progress Note-Nurse Normal 02-17-2017 [facility]) (90184) pro on 2017-02-17 INR Coag RelTime (PPP) 1.5 ratio Normal 017 [facility]) (70008) Comment: Result Comment: The [place] [employer] (CHEST, 1991, 102:312S-25S)recommended the rapeutic range for oral anticoagulant therapy is:LOW RISK: Prophylaxis of venous thrombosis INR: 2.0-3.0 Treatment of pulmonary embolism 2.0-3.0 P revention of systemic embolism 2.0-3.0HIGH RISK: Mechanical prosthetic valves 2.5-3.5 Performed By: #### CBC, ADIF F, ANEU, FIB, APTT, PRO, BMP, GFR ####[place] [address] Prothrombin time (PT) 17.7 9.0-14.5 seconds High 02-18-20 17 [facility] Coag time (PPP) [facility]) (93021) Comment: Result Comment: Effective , Protime results may be affected by some antibiotics (i.e. Ciprofloxa patrice, Azithromycin, Bactrim) which may potentiate the action of oral anticoagu lants, with further increases in Protime/INR. Performed By: #### CBC, ADIF F, ANEU, FIB, APTT, PRO, BMP, GFR ####[place] [address] fib on 2017-02-17 Fibrinogen 302 250-550 mg/dL Normal 02-17-2017 Count Includes [facility] ([place]) (63313) Comment: Performed By: #### CBC, ADIF F, ANEU, FIB, APTT, PRO, BMP, GFR ####[place] [address] cbc on 2017-02-17 Erythrocyte distribution 13.8 11.5-15.5 % Normal 02-17 [facility] Auto Ratio (RBC) [facility] ([place]) ([address]111) Comment: Performed By: #### CBC, ADIF F, ANEU, FIB, APTT, PRO, BMP, GFR ####[place] [address] Erythrocytes (RBC) 4.38 4.50-6.00 10 6/mcL Low 02-17-2017 Count Includes [facility] ([place]) (0000 0) Comment: Performed By: #### CBC, ADIF F, ANEU, FIB, APTT, PRO, BMP, GFR ####[place] [address] Hematocrit (HCT) 37.6 40.0-52.0 % Low 02-17-2017 [facility] ([place]) (74376) Comment: Performed By: #### CBC, ADIF F, ANEU, FIB, APTT, PRO, BMP, GFR ####[place] [address] Hemoglobin mass conc 12.9 13.0-17.5 G/dL Low 7 Count Includes [facility] (d) ([place]) (0000 0) Comment: Performed By: #### CBC, ADIF F, ANEU, FIB, APTT, PRO, BMP, GFR ####[place] [address] MCH 29.4 27.0-33.0 pg Normal 02-17-2017 [facility] ([place]) ([address]886) Comment: Performed By: #### CBC, ADIF F, ANEU, FIB, APTT, PRO, BMP, GFR ####[place] [address] MCHC mass conc (RBC) 34.2 32.0-36.0 G/dL Normal 7 Count Includes [facility] ([place]) (0000 0) Comment: Performed By: #### CBC, ADIF F, ANEU, FIB, APTT, PRO, BMP, GFR ####[place] [address] MCV 85.9 81.0-100.0 fL Normal 02-17-2017 Count Includes [facility] ([place]) (61842) Comment: Performed By: #### CBC, ADIF F, ANEU, FIB, APTT, PRO, BMP, GFR ####[place] [address] Platelet mean volume 8.0 6.4-10.5 fL Normal [address] [place] [address] (V) ([place]) (0000 0) Comment: Performed By: #### CBC, ADIF F, ANEU, FIB, APTT, PRO, BMP, GFR ####[place] [address] Platelets 164 150-450 10 3/mcL Normal 02-17-2017 [facility] ([place]) (11847) Comment: Performed By: #### CBC, ADIF F, ANEU, FIB, APTT, PRO, BMP, GFR ####[place] [address] WBC (Leukocytes) 6.10 4.50-10.80 10 3/mcL Normal 02-17-2017 A [facility] ([place]) (0000 0) Comment: Performed By: #### CBC, ADIF F, ANEU, FIB, APTT, PRO, BMP, GFR ####[place] [address] bmp on 2017-02-17 BUN/Creatinine Ratio 31.8 10.0-22.0 ratio High 7 Count Includes [facility] ([place]) (0000 0) Comment: Performed By: #### CBC, ADIF F, ANEU, FIB, APTT, PRO, BMP, GFR ####[place] [address] Calcium 8.8 8.4-10.1 mg/dL Normal 02-17-2017 [facility]) (19381) Comment: Performed By: #### CBC, ADIF F, ANEU, FIB, APTT, PRO, BMP, GFR ####[place] [address] Chloride 109 98-110 mEq/L Normal 02-17-2017 [facility] ([place]) ([address]23) Comment: Performed By: #### CBC, ADIF F, ANEU, FIB, APTT, PRO, BMP, GFR ####[place] [address] CO2 27 22-32 mEq/L Normal 02-17-2017 [facility] ([place]) (27671) Comment: Performed By: #### CBC, ADIF F, ANEU, FIB, APTT, PRO, BMP, GFR ####[place] [address] Creatinine 1.10 0.60-1.40 mg/dL Normal 02-17-2017 Count Includes [facility] ([place]) (63159) Comment: Performed By: #### CBC, ADIF F, ANEU, FIB, APTT, PRO, BMP, GFR ####[place] [address] Electrolyte Balance 7.0 4.0-15.0 mEq/L Normal 02-17-2017 Count Includes [facility] ([place]) (0000 0) Comment: Performed By: #### CBC, ADIF F, ANEU, FIB, APTT, PRO, BMP, GFR ####[place] [address] Glucose mass conc 99 82-115 mg/dL Normal 02-17-2017 A [facility] ([place]) ([address]2001) Comment: Performed By: #### CBC, ADIF F, ANEU, FIB, APTT, PRO, BMP, GFR ####[place] [address] Potassium molar conc 4.0 3.5-5.0 mEq/L Normal 7 Count Includes [facility] ([place]) (0000 0) Comment: Performed By: #### CBC, ADIF F, ANEU, FIB, APTT, PRO, BMP, GFR ####[place] [address] Sodium 143 136-145 mEq/L Normal 02-17-2017 [facility] ([place]) (95887) Comment: Performed By: #### CBC, ADIF F, ANEU, FIB, APTT, PRO, BMP, GFR ####[place] [address] Urea nitrogen 35.0 8.0-22.0 mg/dL High 02-17-2017 [facility] ([place]) ([address]319) Comment: Performed By: #### CBC, ADIF F, ANEU, FIB, APTT, PRO, BMP, GFR ####[place] [address] aptt on 2017-02-17 aPTT 32.6 25.0-35.0 seconds Normal 02-17-2017 [facility] ([place]) ([address]11) Comment: Result Comment: For Heparin anticoagulation therapy, the recommendedtherapeutic range is: 54-77 seconds (APTT Correlationwith Anti-Xa therapeutic range of 0.3-0.7 units/ml).PLEASE REFERENCE THE PHARMACY PROTOCOL FOR DOSING. Performed By: #### CBC, ADIF F, ANEU, FIB, APTT, PRO, BMP, GFR ####[place] [address] aPTT Coumadin PO Normal 02-17-2017 Count Includes [facility] ([place]) (71823) Comment: Performed By: #### CBC, ADIF F, ANEU, FIB, APTT, PRO, BMP, GFR ####[place] [address] .neuabs on Neutrophils 4.30 2.25-8.10 10 3/mcL Normal 02-17-2017 Count Includes [facility] ([place]) (65342) Comment: Performed By: #### CBC, ADIF F, ANEU, FIB, APTT, PRO, BMP, GFR ####[place] [address] .gfr on 2017-02-17 eGFR (non-black) >60 mL/min/{1.73_m2} Normal 2016 Count Includes [facility] ([place]) (0000 0) Comment: Result Comment: GFR Populati [...] F, ANEU, FIB, APTT, PRO, BMP, GFR ####[place] [id number] .auto diff on 02-17 Basophils Auto #/vol 0.10 0.00-0.27 10 3/mcL Normal 7 [facility] ([facility]) [facility] ([place]) ([id number]) Comment: Performed By: #### CBC, ADIF F, ANEU, FIB, APTT, PRO, BMP, GFR ####[address] [address] Basophils/100 WBC Auto (Bld) 1.1 0.0-2.5 % Normal 1 04-19-2016 Count Includes [facility] ([place]) (0000 0) Comment: Performed By: #### CBC, ADIF F, ANEU, FIB, APTT, PRO, BMP, GFR ####[address] [address] Eosinophils 0.20 0.00-0.65 10 3/mcL Normal 02-17-2017 Count Includes [facility] ([place]) ([id number]) Comment: Performed By: #### CBC, ADIF F, ANEU, FIB, APTT, PRO, BMP, GFR ####[address] [address] Eosinophils/100 leukocytes 2.7 0.0-6.0 % Normal Count Includes [facility] ([place]) (0000 0) Comment: Performed By: #### CBC, ADIF F, ANEU, FIB, APTT, PRO, BMP, GFR ####[address] [address] Lymphocytes 1.10 0.90-4.32 10 3/mcL Normal 02-17-2017 Count Includes [facility] ([place]) ([id number]) Comment: Performed By: #### CBC, ADIF F, ANEU, FIB, APTT, PRO, BMP, GFR ####[address] [address] Lymphocytes/100 leukocytes 17.9 20.0-40.0 % Low Count Includes [facility] ([place]) (0000 0) Comment: Performed By: #### CBC, ADIF F, ANEU, FIB, APTT, PRO, BMP, GFR ####[address] [address] Monocytes 0.50 0.09-1.40 10 3/mcL Normal 02-17-2017 [facility] ([place]) ([id number]) Comment: Performed By: #### CBC, ADIF F, ANEU, FIB, APTT, PRO, BMP, GFR ####[address] [address] Monocytes/100 leukocytes 8.5 2.0-13.0 % Normal 02-17 Count Includes [facility] ([place]) (0000 0) Comment: Performed By: #### CBC, ADIF F, ANEU, FIB, APTT, PRO, BMP, GFR ####[facility] [place] [address] Neutrophils/100 WBC Auto 69.8 50.0-75.0 % Normal 02-17 [facility] (d) [facility] ([place]) ([id number]) Comment: Performed By: #### CBC, ADIF F, ANEU, FIB, APTT, PRO, BMP, GFR ####[facility] [place] [address] office visit: mmm o n 2017-01-01 Documentation of Done Invalid Interpretation 01-01-2017 - [facility] current medications Code 01-01-2017 Group ([id number]) (procedure) Fall risk assessment No Invalid Interpretat ion 01-01-2017 - [place] [facility] Code 01-01-2017 Group (44 691) Protein mass conc Done Invalid Interpretation 01-01-2017 - [place] [facility] Code 01-01-2017 Group (44 691) clinical lists update: preload on 2016-12-30 Left ventricular 35 % Invalid Interpretation 12-30-2016 - [place] [facility] Ejection fraction Code 12-30-2016 Ney gilmore ([id number]) chart maintenance o n 2016-11-16 Anion gap 9 mmol/L Invalid 11-16-2016 - [place] [facility] Interpretation Code 11-16-2016 Group ([id number]) Anion gap 4 molar 9 Invalid 11-16-2016 - [facility] conc Interpretation Code 11-16-2016 Group ([id number]) Anion gap molar 9 mmol/L 11-16-2016 - [place] conc 11-16-2016 Medical S [employer] ([id number] ) basophils as 0.5 % Invalid 11-16-2016 - [place] percent of blood Interpretation Code Medical Service[facility] ([id number]) manual count Calcium mass conc 8.3 mg/dL Low 11-16-2016 - [place] 11-16-2016 Medical S [facility], [employer] ([id number] ) Chloride molar 105 mmol/L High 11-16-2016 - [place] conc 11-16-2016 Medical S ervice, [facility] ([id number] ) Cholesterol in 30 mg/dL Low 11-16-2016 - [place] HDL mass conc 11-16-2016 Medic al Service, [facility] ([id number] ) Cholesterol in 27 mg/dL Invalid 11-16-2016 - [place] LDL mass conc Interpretation Code 2016 Medical [facility], [facility] ([id number] ) Cholesterol mass 124 mg/dL Invalid 11-16-2016 - [place] conc Interpretation Code 11-16-2016 Medical Service, [facility] ([id number] ) CO2 25.0 mmol/L Invalid 11-16-2016 - [place] [facility] Interpretation Code 11-16-2016 Group ([id number]) CO2 ppres (BldV) 25.0 mmol/L Invalid 11-16-2016 - [place] Interpretation Code 11-16-2016 Medical Service, [facility] ([id number] ) Creatinine mass 1.20 mg/dL Invalid 11-16-2016 - [place] conc Interpretation Code 11-16-2016 Medical [facility], [facility] (57506 ) eGFR (non-black) 77 mL/min/1.73 Invalid 11-16-2016 - [facility] m2 Interpretation Code 11-16-2016 Group (52977) eosinophils as 3.4 % Invalid 11-16-2016 - [place] percent of blood Interpretation Code Medical [facility], leukocytes, [facility] (442 91) manual count Erythrocyte 15.0 % High 11-16-2016 - [facility] distribution 11-16-2016 Group ([id number]) width Auto Ratio (RBC) Erythrocyte 15.0 % High 11-16-2016 - [place] distribution 11-16-2016 Medica l Service, width Ratio (RBC) LL C (36415) GFR/1.73 sq M 63 mL/min/1.73 Invalid 11-16-2016 - [place] predicted among m2 Interpretation Code 10-29 Medical Service, non-blacks MDRD [facility] ([id number]) vol rate/area (S/P/Bld) Glomerular 77 mL/min/1.73 Invalid 11-16-2016 - [place] Filtration Rate m2 Interpretation Code 10-29 [facility] (63053) Glucose mass conc 287 mg/dL High 11-16-2016 - [place] 11-16-2016 [facility] (71527 ) Hematocrit Auto 33.2 % Low 11-16-2016 - [place] [facility] Volume Fraction 11-16-2016 [facility] (50293) (Bld) Hematocrit Volume 33.2 % Low 11-16-2016 - [place] Fraction (Bld) 11-16-2016 [facility] ana [facility] (30551 ) Hemoglobin mass 11.4 g/dL Low 11-16-2016 - [place] conc (Bld) 11-16-2016 [facility] ([id number] ) Lipoprotein.pre-b 67 mg/dL High 11-16-2016 - [place] eta mass conc 11-16-2016 Quorum al [facility] (17233 ) Lymphocytes/100 26.6 % 11-16-2016 - [place] WBC (Bld) 11-16-2016 [facility] (38944 ) Lymphocytes/100 26.6 % Invalid 11-16-2016 - [place] [facility] WBC Auto (Bld) Interpretation Code 11-16 Group ([id number]) MCH Auto Entitic 29.9 pg Invalid 11-16-2016 - [place] [facility] mass (RBC) Interpretation Code 7 Group (46064) MCH Entitic mass 29.9 pg 11-16-2016 - [place] (RBC) 11-16-2016 [facility] (58807 ) MCHC Auto mass 34.3 g/dL Invalid 11-16-2016 - [facility] conc (RBC) Interpretation Code 7 Group (86179) MCHC mass conc 34.3 g/dL 11-16-2016 - [place] (RBC) 11-16-2016 [facility] (97692 ) MCV Auto Entitic 87.1 fL Invalid 11-16-2016 - [facility] volume (RBC) Interpretation Code 017 Group (79233) MCV Entitic 87.1 fL 11-16-2016 - [place] volume (RBC) 11-16-2016 Quoruma l [facility] (74884 ) Monocytes/100 WBC 9.7 % 11-16-2016 - [place] (Bld) 11-16-2016 [facility] (62756 ) Monocytes/100 WBC 9.7 % Invalid 11-16-2016 - [place] [facility] Auto (Bld) Interpretation Code 7 Group (63526) Platelet mean 9.9 fL 11-16-2016 - [place] volume Entitic 11-16-2016 [facility] Service, volume (Bld) LLC (44 691) Platelet mean 9.9 fL Invalid 11-16-2016 - [facility] volume Moiz-Annie Interpretation Code Group ([id number]) Entitic volume (Bld) Platelets #/vol 157 10*3/mm3 11-16-2016 - [place] (Bld) 11-16-2016 Medical S [employer] (42811 ) Platelets Auto 157 10*3/mm3 Invalid 11-16-2016 - [facility] #/vol (Bld) Interpretation Code 11-17-19 17 Group ([id number]) Potassium molar 3.7 mmol/L Invalid 11-16-2016 - [place] conc Interpretation Code 11-16-[address] [facility] (23055 ) RBC #/vol (Bld) 3.81 10*6/uL Low 11-16-2016 - [place] 11-16-2016 Medical S [employer] (43243 ) RBC Auto #/vol 3.81 10*6/uL Low 11-16-2016 - [facility] (Bld) 11-16-2016 Group (44 951) Sodium molar conc 139 mmol/L Invalid 11-16-2016 - [place] Interpretation Code 11-16-[address] [facility] (90187 ) Triglyceride mass 336 mg/dL High 11-16-2016 - [place] conc 11-16-2016 [facility]ation Medical S [employer] (30089 ) Urea nitrogen 24 mg/dL High 11-16-2016 - [place] mass conc 11-16-2016 [facility] (83935 ) Urea 20.0 mg/mg Invalid [facility]-2016 [facility]Creatini Interpretation Code Medical [employer] nc mass ratio [facility] ([id number]) very low density 67 mg/dL High 11-16-2016 - [facility] lipoproteins 11-16-2016 Group ([id number]) WBC #/vol (Bld) 4.4 10*9/L 11-16-2016 - [place] 11-16-2016 Medical [facility] (10688 ) WBC Auto #/vol 4.4 10*9/L Invalid 11-16-2016 - [facility] (Bld) Interpretation Code 11-16-2016 Group ([id number]) chart maintenance o n 2016-11-15 INR Coag RelTime 2.5 {INR} Invalid 11-15-2016 [facility] (PPP) Interpretation Code 11-15-2016 [facility] (01013 ) Prothrombin time 25.7 s High 11-15-2016 [facility] (PT) Coag time 11-15-2016 [facility] ([facility] [employer] ([id number] ) office visit on 10-03-07 Documentation of Done Invalid 09-04-2016 - [facility] current medications Interpretation Code 09-04-2016 Group ([id number]) (procedure) Fall risk assessment No Invalid Heart Interpretation Code 09-04-2016 Group (32986) Protein mass conc Done Invalid 09-04-2016 - [place] Interpretation Code 09-04-2016 [facility] ([id number] ) clinical lists update: preload on 2016-09-03 Left ventricular 35 % Invalid Interpretation 09-03-2016 - [place] [facility] Ejection fraction Code 09-03-2016 G r[facility] (32742) clinical lists update: preload on 2016-07-01 Anion gap 9 mmol/L Invalid 07-01-2016 - [place] Interpretation Code 07-01-2016 Heart Group (47619) BUN/Creatinine 23.1 mg/mg High 07-01-2016 - [place] Ratio 07-01-2016 Heart [place] [facility] (55448) Calcium 8.7 mg/dL Invalid 07-01-2016 - [place] Interpretation Code 07-01-2016 Heart Group (34363) Chloride 103 mmol/L Invalid 07-01-2016 - [facility] Interpretation Code 07-01-2016 [facility] Group (34506) CO2 28..0 Invalid 07-01-2016 - [place] Interpretation Code 07-01-2016 [facility] Group (34851) Creatinine 1.30 mg/dL Invalid 07-01-2016 - [place] Interpretation Code 07-01-2016 [facility] Group ([id number]) eGFR (non-black) 70 mL/min/1.73m Invalid 07-01-2016 - [place] 2 Interpretation Code 07-01-2016 Heart Group (77298) eGFR (non-black) 58 mL/min/1.73m Low 07-01-2016 - [facility] 2 07-01-2016 Heart [facility] (28588) Erythrocytes (RBC) 4.58 10*6/uL Low 07-01-2016 - [place] 07-01-2016 Heart [facility] up (91255) Glucose 195 mg/dL High 07-01-2016 - [facility] 07-01-2016 Heart [place] up (79345) Hematocrit (HCT) 41.2 % Invalid 07-01-2016 - [facility] Interpretation Code 07-01-2016 Heart Group (90832) Hemoglobin (HGB) 13.6 g/dL Invalid 07-01-2016 - [place] Interpretation Code 07-01-2016 [facility] Group ([id number]) MCH 29.7 pg Invalid 07-01-2016 - [place] Interpretation Code 07-01-2016 Heart Group ([id number]) MCHC 33.0 g/dL Invalid 07-01-2016 - [place] Interpretation Code 07-01-2016 Heart Group ([id number]) MCV 90.0 fL Invalid 07-01-2016 - [place] Interpretation Code 07-01-2016 Heart Group (70279) Platelets 172 10*3/mm3 Invalid 07-01-2016 - [place] Interpretation Code 07-01-2016 [facility] Group ([id number]) PMV by Cindi 9.8 fL Invalid 07-01-2016 - [facility] Interpretation Code 07-01-2016 [facility] Group (43084) Potassium 3.8 mmol/L Invalid 07-01-2016 - [place] Interpretation Code 07-01-2016 [facility] Group ([id number]) RDW-CA 13.8 % Invalid 07-01-2016 - [place] Interpretation Code 07-01-2016 Heart Group ([id number]) Sodium 140 mmol/L Invalid 07-01-2016 - [place] Interpretation Code 07-01-2016 Heart Group (44064) Urea nitrogen 30 mg/dL High 07-01-2016 - [place] [facility] 07-01-2016 Heart [place] up ([id number]) WBC (Leukocytes) 4.9 10*9/L Invalid 07-01-2016 - [place] Interpretation Code 07-01-2016 Heart Group ([id number]) replaced document: midmark ecg observati ons on 2016-06-19 BUN (urea nitrogen) Sinus Rhythm Invalid 017 - [facility] -Frequent pvcs Interpretation 06-19-2016 Group ([id number]) -ventricular Code bigeminy -Right bundle branch block. - Inferior -lateral infarct (age undetermined). ABNORMAL EKG QRS axis -12 deg Invalid 06-19-2016 - [place] Interpretation 06-19-2016 Medi ana Code Service, L LC ([id number]) GE use only - for 428 ms Invalid 06-19-2016 - [facility] [employer]ic import Interpretation 06-20-19 17 Group ([id number]) when terms are not Code otherwise specified P Mobile 40 deg Invalid 06-19-2016 - [place] Interpretation 06-19-2016 Medi ana Code Service, L LC ([id number]) P wave axis, 40 deg Invalid 06-19-2016 - [facility] electrocardiogram Interpretation 017 Group ([id number]) Code MD Interval 156 ms Invalid 06-19-2016 - [place] Interpretation 06-19-2016 Medi ana Code Service, L LC ([id number]) MD interval, 156 ms Invalid 06-19-2016 - [facility] electrocardiogram Interpretation 017 Group ([id number]) Code Pulse (Heart Rate) 81 BPM /min Invalid 06-19-2016 - [place] [facility] Interpretation 06-19-2016 Grou p (70873) Code QRS axis, -12 deg Invalid 06-19-2016 - [place] [facility] electrocardiogram Interpretation 017 Group ([id number]) Code QRS Duration 144 ms Invalid 06-19-2016 - [place] Interpretation 06-19-2016 Medi ana Code Service, L LC ([id number]) QRS duration, 144 ms Invalid 06-19-2016 - [facility] electrocardiogram Interpretation 017 Group (36809) Code QT Interval new path ms Invalid 06-19-2016 - [place] Interpretation 06-19-2016 Medi ana Code Service, L LC ([id number]) QT interval, new path ms Invalid 06-19-2016 - [facility] electrocardiogram Interpretation 017 Group (08421) Code QTc Hung 428 ms Invalid 06-19-2016 - [place] Interpretation 06-19-2016 Medi ana Code Service, L LC ([id number]) T Mobile -1 deg Invalid 06-19-2016 - [place] Interpretation 06-19-2016 Medi ana Code Service, L LC ([id number]) T wave axis, -1 deg Invalid 06-19-2016 - [facility] electrocardiogram Interpretation 017 Group ([id number]) Code Urea nitrogen mass Sinus Rhythm 06-20-19 17 - [place] conc -Frequent pvcs 06-19-2016 [facility] ana -ventricular Service , [facility] bigeminy -Right (446 91) bundle branch block. - Inferior -lateral infarct (age undetermined). ABNORMAL office visit on 09-29-22 Documentation of Done Invalid Interpretation 06-19-2016 - [facility] current medications Code 06-19-2016 Group ([id number]) (procedure) Fall risk assessment No Invalid Interpretat ion 06-19-2016 - [place] [facility] Code 06-19-2016 Group (65 091) lab report: magnesium on 2016-06-19 Magnesium 2.0 1.8-2.4 mg/dL Invalid Interpretation 017 - [place] [facility] Code 06-19-2016 Group (44 211) lab report: basic metabolic profile (bmp ) on 2016-06-19 Anion gap 8 5-15 mmol/L Invalid 06-19-2016 - [place] [facility] Interpretation 06-19-2016 Grou p ([id number]) Code BUN/Creatinine 20.4 10-20 High 06-19-2016 - [place] [facility] Ratio RATIO 06-19-2016 Group (26 681) Calcium 9.1 8.5-10.1 mg/dL Invalid 06-19-2016 - [facility] Interpretation 06-19-2016 Grou p ([id number]) Code Chloride 103 98-107 mmol/L Invalid 06-19-2016 - [facility] Interpretation 06-19-2016 Grou p ([id number]) Code CO2 30.0 21.0-32. mmol/L Invalid 06-19-2016 - [facility] 0 Interpretation 06-19-2016 Grou p ([id number]) Code Creatinine 1.13 0.70-1.3 mg/dL Invalid 06-19-2016 - [place] [facility] 0 Interpretation 06-19-2016 Grou p ([id number]) Code eGFR 82 >60 mL/min Invalid 06-19-2016 - [place] [facility] (non-black) Interpretation 06-19-2016 Gr oup (03284) Code eGFR 68 >60 mL/min Invalid 06-19-2016 - [facility] (non-black) Interpretation 06-19-2016 Gr oup (76635) Code EST GFR - AA 82 >60 mL/min Invalid 06-19-2016 - [place] Interpretation 06-19-2016 [facility] ana Code Service, L LC ([id number]) Glucose 93 70-110 mg/dL Invalid 06-19-2016 - [facility] Interpretation 06-19-2016 Grou p ([id number]) Code Potassium 3.9 3.5-5.1 mmol/L Invalid 06-19-2016 - [facility] Interpretation 06-19-2016 Grou p ([id number]) Code Sodium 141 136-145 mmol/L Invalid 06-19-2016 - [place] [facility] Interpretation 06-19-2016 Grou p ([id number]) Code Urea nitrogen 23 7-18 mg/dL High 06-19-2016 - [facility] 06-19-2016 Group (44 351) clinical lists update: preload on 2016-05-31 Hematocrit (HCT) 36.8 % Low 05-31-2016 - [place] [facility] 05-31-2016 Group (44 171) Hemoglobin (HGB) 11.9 g/dL Low 05-31-2016 - [place] [facility] 05-31-2016 Group (44 601) Platelets 152 10*3/mm3 Invalid 05-31-2016 - [place] [facility] Interpretation Code 05-31-2016 Group ([id number]) lab report: liver profile on 2016-05-21 Alanine 33 12-78 U/L Invalid 05-21-2016 - [facility] aminotransferase Interpretation 05-21-19 17 Group ([id number]) (ALT) Code Albumin 4.1 3.4-5.0 g/dL Invalid 05-21-2016 - [place] [facility] Interpretation 05-21-2016 Grou p ([id number]) Code Alkaline phosphatase 60 45-117 U/L Invalid 7 - [place] [facility] (ALP) Interpretation 05-21-2016 Grou p ([id number]) Code ALP enzyme act/vol 60 45-117 U/L Invalid 05-21-2016 - [place] (Bld) Interpretation 05-21-2016 Medi ana Code Service, L LC ([id number]) Aspartate 27 15-37 U/L Invalid 05-21-2016 - [place] [facility] aminotransferase Interpretation 05-21-19 17 Group ([id number]) (AST) Code Bilirubin (direct) 0.06 0.00-0.30 mg/dL Invalid 05-21-2016 - [place] [facility] Interpretation 05-21-2016 Grou p ([id number]) Code Bilirubin (total) 0.40 0.20-1.00 mg/dL Invalid 05-21-2016 - [facility] Interpretation 05-21-2016 Grou p ([id number]) Code Globulin 2.9 2.3-3.5 g/dL Invalid 05-21-2016 - [place] [facility] Interpretation 05-21-2016 Grou p ([id number]) Code Globulin mass conc 2.9 2.3-3.5 g/dL 05-21-2016 - [place] (S) 05-21-2016 Medical Service, LC ([id number]) Protein 7.0 6.4-8.2 g/dL Invalid 05-21-2016 - [facility] Interpretation 05-21-2016 Grou p ([id number]) Code lab report: lipid profile on 2016-05-21 Cholesterol 140 200 mg/dL Invalid 05-21-2016 - [facility] [facility] Interpretation Code 05-21-2016 Group (40935) HDL Cholesterol 40 mg/dL Invalid 05-21-2016 - [place] [facility] Interpretation Code 05-21-2016 Group ([id number]) LDL Cholesterol 68 0-130 mg/dL Invalid 05-21-2016 - [place] [facility] [facility] Interpretation Code 05-21-2016 Group (13901) Triglyceride 158 mg/dL Invalid 05-21-2016 - [facility] Interpretation Code 05-21-2016 Group ([id number]) very low density 32 5-40 mg/dL Invalid 05-21-2016 - [place] [facility] lipoproteins Interpretation Code 017 Group (23765) office visit on 09-09-15 Dietary yes Invalid 03-14-2016 - [place] [facility] management Interpretation Code 6 Group (92128) education, guidance, and counseling (procedure) Tobacco smoking Former Invalid 03-14-2016 - [place] status NHIS smoker Interpretation Code 03-14-20 Medical Service, [facility] ([id number] ) Tobacco use CPHS Former Invalid 03-14-2016 - [facility] smoker Interpretation Code 03-14-2016 Group ([id number]) lab report: prothrombin time w/inr on 2016-03-14 Coagulation 18.7 SECONDS 11.7-14.9 High 03-14-2016 - [place] tissue factor 03-14-2016 Heart Group induced in ([id number]) platelet poor plasma INR in blood by 1.6 {INR Invalid 03-14-2016 - [place] coagulation } Interpretation 03-14-2016 He art Group Code ([id number]) lab report: prothrombin time fingerstick on 2016-02-15 Coagulation 12.9 SEC 11.9-14.4 Invalid 02-15-2016 - [place] tissue factor Interpretation Code 2015 [facility] Group induced in ([id number]) platelet poor plasma lab report: cbc-complete blood cnt no di ff on 2016-01-30 Erythrocyte 44.7 35.1-43.9 fL High 01-30-2016 - [facility] distribution 01-30-2016 Group ([id number]) width Auto Ratio (RBC) Erythrocyte 44.7 35.1-43.9 fL High 01-30-2016 - [place] distribution 01-30-2016 Medica l width Ratio [facility] (RBC) (93352) Erythrocytes 4.60 4.6-6.2 10*6/u Invalid 01-30-2016 - [facility] (RBC) L Interpretation 01-30-2016 Grou p ([id number]) Code MCH 29.8 27.0-32.0 pg Invalid 01-30-2016 - [facility] Interpretation 01-30-2016 Grou p ([id number]) Code MCHC 33.9 32-36 Invalid 01-30-2016 - [place] [facility] G/GL Interpretation 01-30-2016 Grou p ([id number]) Code MCV 87.8 80-94 fL Invalid 01-30-2016 - [place] [facility] Interpretation 01-30-2016 Grou p ([id number]) Code PMV by 9.8 6.2-12.0 fL Invalid 01-30-2016 - [facility] Moiz-Annie Interpretation 01-30-2016 [facility] up ([id number]) Code RDW SD 44.7 35.1-43.9 fL High 01-30-2016 - [place] [facility] 01-30-2016 Group (44 351) RDW-CA 14.0 11.6-14.6 % Invalid 01-30-2016 - [facility] Interpretation 01-30-2016 Grou p ([id number]) Code red blood cell 44.7 35.1-43.9 fL High 01-30-2016 - [facility] distribution 01-30-2016 Group ([id number]) width, size density WBC (Leukocytes) 5.5 4.4-11.0 10*9/L Invalid 01-30-2016 - [place] [facility] Interpretation 01-30-2016 Grou p ([id number]) Code clinical lists update: preload on 2016-01-16 Left ventricular 35 % Invalid Interpretation 01-16-2016 - [facility] Ejection fraction Code 01-16-2016 G roup ([id number]) lab report: bedside glucose on 2014-12-15 Glucose 227 70-110 mg/dL High 12-15-2014 - [facility] 12-15-2014 ([id number]) Glucose mass conc 227 70-110 mg/dL High 12-15-2014 [facility] 12-15-2014 [facility] ([id number]) clinical lists update: preload on 2014-12-08 Cholesterol in 2.93 Invalid 12-08-2014 - [facility] LDL/Cholesterol in HDL Interpretation Co de 12-08-2014 Medical [facility] [employer] [facility] (4446 1) Cholesterol to HDL 5.85 High 12-08-2014 - [place] [facility] Ratio 12-08-2014 Group (44 691) HbA1c 7.1 % High 12-08-2014 - [facility] 12-08-2014 Group (44 691) LDL/HDL ratio, serum 2.93 Invalid 5 - [facility] Interpretation Code 12-08-2014 Group (00918) office visit on 07-10-15 cardiac risk group C Invalid Interpretatio n 03-14-2014 - [place] [facility] Code 03-14-2014 Group (44 731) General cardiovascular N/A Invalid Interpret ation 03-14-2014 - [place] [facility] disease 10Y risk [#] Code 4 Group (77500) Davis.D'Agosttoni replaced document: midmark ecg observati ons on 2012-03-04 Pulse (Heart 430 ms Invalid Interpretation -0 - [place] [facility] Rate) Code 03-04-2012 Group (44 451) clinical lists update: preload on 2011-03-15 [facility] 34.7 % Invalid Interpretation 011 - [facility] Group Code 03-15-2011 ([id number]) [facility] mass conc 34.7 % 03-15-2011 - [facility] (RBC) 03-15-2011 [facility] (60532) Vital Signs Vital Sign Description Value / Unit Date Location The following section is limited to 5 en tries per type and includes entries from the following time range: [id number] - 5. BMI (Body Mass Index) 38.16 kg/m2 01-01-2017 - 01-01-2017 [facility] ([id number]) BMI (Body Mass Index) 37.35 kg/m2 09-04-2016 - 09-04-2016 [facility] (34729) BMI (Body Mass Index) 36.94 kg/m2 06-19-2016 - 06-19-2016 [facility] (69750) BP Diastolic 80 mm[Hg] 01-01-2017 - 01-01-2017 [place] [facility] (25422) BP Diastolic 50 mm[Hg] 09-04-2016 - 09-04-2016 [facility] ([id number]) BP Diastolic 70 mm[Hg] 06-19-2016 - 06-19-2016 [facility] ([id number]) BP Diastolic 90 mm[Hg] 03-29-2015 - 03-29-2015 [facility] (06906) BP Diastolic 96 mm[Hg] 03-29-2015 - 03-29-2015 [place] [facility] ([id number]) BP Systolic 134 mm[Hg] 01-01-2017 - 01-01-2017 [place] [facility] (57862) BP Systolic 90 mm[Hg] 09-04-2016 - 09-04-2016 [facility] ([id number]) BP Systolic 110 mm[Hg] 06-19-2016 - 06-19-2016 [facility] (75050) BP Systolic 122 mm[Hg] 03-29-2015 - 03-29-2015 [place] [facility] (81716) BP Systolic 120 mm[Hg] 03-29-2015 - 03-29-2015 [facility] (36721) BSA (Body Surface Area) 2.21 m2 03-14-2016 - 03-14-2016 [facility] (50159) Heart rate 81 /min 06-19-2016 - 06-19-2016 [employer] (44 691) Heart rate 430 ms 03-04-2012 - 03-04-2012 [employer] (44 691) Height 172.72 cm 01-01-2017 - 01-01-2017 [facility] (30210) Height 172.72 cm 09-04-2016 - 09-04-2016 [facility] (85345) Height 172.72 cm 06-19-2016 - 06-19-2016 [place] [facility] ([id number]) Pulse (Heart Rate) 64 /min 01-01-2017 - 01-01-2017 [facility] ([id number]) Pulse (Heart Rate) 64 /min 09-04-2016 - 09-04-2016 [facility] (84696) Pulse (Heart Rate) 80 /min 06-19-2016 - 06-19-2016 [facility] (61774) Respiratory Rate 20 /min 01-01-2017 - 01-01-2017 [place] [facility] (54071) Respiratory Rate 20 /min 09-04-2016 - 09-04-2016 [facility] (92483) Respiratory Rate 20 /min 06-19-2016 - 06-19-2016 [facility] (83380) Weight 113.85 kg 01-01-2017 - 01-01-2017 [place] [facility] (60328) Weight 111.45 kg 09-04-2016 - 09-04-2016 [facility] (00016) Weight 110.22 kg 06-19-2016 - 06-19-2016 [facility] Group ([id number]) Encounters Date Type Reason Provider Location 02-17-2017 - Ambulatory [facility] ESTAFANOUS Facility:A 02-17-2017 12-13-2019 - Chart abstracting Morgan langley [place] 12-13-2019 Comment: Outside Lab Results (CBC, BM P) 01-07-2020 - 01-07-2020 Patient encounter [facility] procedure [place] Comment: Non-Urgent Medical Question 12-18-2019 - 12-18-2019 [...] 11-13-2019 - 11-13-2019 Patient encounter Morgan Jesica [facility] procedure [place] Comment: RE: Non-Urgent [facility] 11-10-2019 - Patient encounter External [facility] 11-10-2019 procedure Provider 01-06-2020 - Refill Type 2 diabetes Morgan Mooney [facility] cine 01-06-2020 mellitus [place] Comment: Refill Request 12-07-2019 - 12-07-2019 Refill Type 2 diabetes Morgan [facility] mellitus [place] Comment: Refill Request 12-06-2019 Results Only [facility]ist [facility] 11-23-2019 Results Only Pharmacist [facility] 11-10-2019 - Results Only External Provider External-N [facility] 11-10-2019 12-27-2019 - Telephone encounter Morgan Mooney [facility] 12-27-2019 [place] Comment: Patient Question 12-20-2019 - Telephone Paroxysmal atrial [facility] mbulatory 12-20-2019 encounter fibrillation (Pharmacist) Telemanagement Comment: Anticoagulation Telephone Fu (Home INR result) 12-08-2019 - 12-08-2019 Telephone encounter Morgan Mooney [facility] [place] Comment: [facility] OT POC 12-06-2019 - Telephone Paroxysmal atrial [...] Location BMP - EXTERNAL 12-09-2019 [facility] Provider [facility] ([id number]) CBCDIF (EXTERNAL) 12-09-2019 [facility] Provider [facility] ([id number]) INR Coag (PPP) [Relative 12-06-2019 Pharmacist Home Inr [facility] time] ([id number]) INR Coag (PPP) [Relative 11-23-2019 Pharmacist Home Inr [facility] time] ([id number]) EXTERNAL CARDIOLOGY 11-10-2019 External Provider [facility] ([id number]) EXTERNAL IMAGING 11-10-2019 External Provider [facility] ([id number]) Colonoscopy 01-06-2018 - [facility] 01-06-2018 ([id number]) Prgrmng dev eval 01-30-2017 - MD [facility] implantable in persn 1 ld 02-02-2017 ([id number] ) dfb Follow Up Appt 3 months 10-30-2016 - MD [facility] 12-17-2016 ([id number]) Pacer Clinic 10-30-2016 - MD [facility] 12-17-2016 ([id number]) Prgrmng dev eval 10-30-2016 - MD [facility] implantable in persn 1 ld 10-30-2016 ([id number] ) dfb Icd device prog eval, 1 10-30-2016 - MD [facility] sngl 10-30-2016 ([id number]) Follow Up Appt 3 months 09-04-2016 - MD Maxim [facility] 12-17-2016 ([id number]) MMM 09-04-2016 - MD [facility] 12-17-2016 ([id number]) Follow Up Appt 3 months 07-30-2016 - MD [facility] 11-17-2016 ([id number]) Pacer Clinic 07-30-2016 - MD [facility] 11-17-2016 ([id number]) Prgrmng dev eval 07-30-2016 - MD [facility] implantable in persn 1 ld 07-30-2016 ([id number] ) dfb Icd device prog eval, 1 07-30-2016 - MD [facility] sngl 11-17-2016 ([id number]) Pacer Clinic 07-30-2016 - MD Darlyn Rogers La dical 11-17-2016 [facility] ([phone]) *BMP 06-19-2016 - MD Ozeil [facility] 06-19-2016 ([id number]) MULTIPLE SLIDE OPERATOR 06-19-2016 - MD [facility] 06-19-2016 ([id number]) Follow Up Appt 3 months 06-19-2016 - MD [facility] 11-17-2016 ([id number]) Magnesium [Mass/volume] in 06-19-2016 - MD [facility] Serum or Plasma 06-19-2016 ([id number]) Pacer Clinic 06-19-2016 - MD [facility] 11-17-2016 ([id number]) Prgrmng dev eval 06-19-2016 - MD [facility] implantable in persn 1 ld 06-23-2016 ([id number] ) dfb Referral to [employer] operations consultant 06-19-2016 - MD [facility] 06-20-2016 ([id number]) *BMP 06-19-2016 - MD [facility] 06-19-2016 ([id number]) MULTIPLE SLIDE OPERATOR 06-19-2016 - MD [facility] 06-19-2016 ([id number]) Follow Up Appt 3 months 06-19-2016 - MD [facility] 11-17-2016 ([id number]) Icd device prog eval, 1 06-19-2016 - MD [facility] sngl 06-23-2016 ([id number]) Magnesium 06-19-2016 - MD [facility] 06-19-2016 ([id number]) Pacer Clinic 06-19-2016 - MD Darlyn Rogers La dical 11-17-2016 [facility] ([phone]) Referral to [employer] operations consultant 06-19-2016 - Johan Perry MD [facility] 06-20-2016 [facility] ([phone]) *Hepatic Function Panel 05-21-2016 - MD [facility] 05-21-2016 ([id number]) Lipid 1996 panel - Serum or 05-21-2016 - MD Pauline [facility] Plasma 05-21-2016 ([id number]) *Hepatic Function Panel 05-21-2016 - MD [facility] 05-21-2016 ([id number]) Lipid panel [AGGREGATE] 05-21-2016 - MD Maxim [facility] 05-21-2016 ([id number]) Follow Up Appt 3 months 04-30-2016 - MD [facility] 11-17-2016 ([id number]) Pacer Clinic 04-30-2016 - MD [facility] 11-17-2016 ([id number]) Prgrmng dev eval 04-30-2016 - MD [facility] implantable in persn 1 ld 11-17-2016 ([id number] ) dfb Icd device prog eval, 1 04-30-2016 - MD [facility] sngl 11-17-2016 ([id number]) Pacer Clinic 04-30-2016 - MD Darlyn Rogers Me dical 11-17-2016 [facility] ([id number]) Carotid duplex 03-14-2016 - MD [facility] 04-01-2016 ([id number]) Follow Up Appt 3 months 03-14-2016 - MD [facility] 03-14-2016 ([id number]) INR in Platelet poor plasma 03-14-2016 - MD Pauline [facility] by Coagulation assay 03-14-2016 ([id number]) MMM 03-14-2016 - MD [facility] 03-14-2016 ([id number]) Dietary management 03-14-2016 - Darlyn galaviz education, guidance, and 03-14-2016 [employer] ([id number]) counseling Carotid duplex 03-14-2016 - MD [facility] 04-01-2016 ([id number]) Coagulation factor 03-14-2016 - MD [facility]iel [facility] induced.INR assay in 03-14-2016 ([id number]) platelet poor plasma Follow Up Appt 3 months 03-14-2016 - MD [facility] 03-14-2016 ([id number]) MMM 03-14-2016 - MD [facility] 03-14-2016 ([id number]) *BMP 01-30-2016 - MD [facility] 01-30-2016 ([id number]) CBC W Auto Differential 01-30-2016 - MD Maxim [facility] panel - Blood 01-30-2016 ([id number]) Chest x-ray 01-30-2016 - MD [facility] 02-08-2016 ([id number]) Ecg routine ecg w/least 12 01-30-2016 - MD Jose [facility] lds w/i&r 01-30-2016 ([id number]) Follow Up Appt 6 weeks 01-30-2016 - MD [facility] 01-30-2016 ([id number]) INR in Platelet poor plasma 01-30-2016 - MD Pauline [facility] by Coagulation assay 01-30-2016 ([id number]) Left Heart Cath 01-30-2016 - MD [facility]iel [facility] 05-21-2016 ([id number]) MMM 01-30-2016 - MD [facility] 01-30-2016 ([id number]) Us abdominal real time 01-30-2016 - MD [facility]iel [facility] w/image limited 02-08-2016 ([id number]) *BMP 01-30-2016 - MD [facility] 01-30-2016 ([id number]) CBC W Auto Differential 01-30-2016 - MD [facility] panel - Blood 01-30-2016 ([id number]) Chest x-ray 01-30-2016 - MD [facility] 02-08-2016 ([id number]) Coagulation factor 01-30-2016 - MD Oziel [facility] induced.INR assay in 01-30-2016 ([id number]) platelet poor plasma Echo exam of abdomen 01-30-2016 - MD Oziel [facility] 02-08-2016 ([id number]) Electrocardiogram, complete 01-30-2016 - MD Pauline [facility] 01-30-2016 ([id number]) Follow Up Appt 6 weeks 01-30-2016 - MD Oziel [facility] 01-30-2016 ([id number]) Left Heart Cath 01-30-2016 - MD [facility]iel [facility] 05-21-2016 ([id number]) MMM 01-30-2016 - MD [facility] 01-30-2016 ([id number]) Follow Up Appt 3 months 01-23-2016 - Pauline [facility] 11-17-2016 PA-C ([id number]) Pacer Clinic 01-23-2016 - [facility]iel Timmons art Group 11-17-2016 PA-C ([id number]) Prgrmng dev eval 01-23-2016 - Oziel Timmons e[facility] Group implantable in persn 1 ld 01-23-2016 PA-C ([id number] ) dfb Chest x-ray 01-23-2016 - Melany Khanna [facility] 11-17-2016 PA-C Service, [employer] ([phone]) Ecg routine ecg w/least 12 01-23-2016 - Melany Khanna [facility] w/i&r 11-17-2016 PA-C Service, [employer] ([phone]) Icd device prog eval, 1 01-23-2016 - Pauline [facility] sngl 01-23-2016 PA-C ([id number]) *Hepatic Function Panel 11-05-2015 - MD Pauline [facility] 11-20-2015 ([id number]) Lipid 1996 panel - Serum or 11-05-2015 - Johan Perry MD [facility] Plasma 11-20-2015 ([id number]) *Hepatic Function Panel 11-05-2015 - MD Maxim [facility] 11-20-2015 ([id number]) Lipid panel [AGGREGATE] 11-05-2015 - MD Maxim [facility] 11-20-2015 ([id number]) Follow Up Appt 3 months 10-18-2015 - Jorge Lin [facility] 02-08-2016 ([id number]) Pacer Clinic 10-18-2015 - [facility] 02-08-2016 ([id number]) Prgrmng dev eval 10-18-2015 - Jorge [facility] implantable in persn 1 ld 10-18-2015 ([id number] ) dfb Follow Up Appt 3 months 10-18-2015 - [facility] 02-08-2016 ([id number]) Icd device prog eval, 1 10-18-2015 - [facility] sngl 10-18-2015 ([id number]) Pacer Clinic 10-18-2015 - [facility] 02-08-2016 ([id number]) Follow Up Appt 3 months 07-18-2015 - MD Maxim [facility] 02-08-2016 ([id number]) Pacer Clinic 07-18-2015 - MD Pauline [facility] 02-08-2016 ([id number]) Prgrmng dev eval 07-18-2015 - MD [facility] implantable in persn 1 ld 07-18-2015 ([id number] ) dfb Follow Up Appt 3 months 07-18-2015 - MD Maxim [facility] 02-08-2016 ([id number]) Icd device prog eval, 1 07-18-2015 - MD Maxim [facility] sngl 02-08-2016 ([id number]) Pacer Clinic 07-18-2015 - MD Pauline [facility] 02-08-2016 ([id number]) MULTIPLE SLIDE OPERATOR 07-03-2015 - MD Pauline [facility] 07-03-2015 ([id number]) Follow Up Appt 6 months 07-03-2015 - MD Maxim [facility] 07-03-2015 ([id number]) MULTIPLE SLIDE OPERATOR 07-03-2015 - Johan Perry MD [place] [facility] 07-03-2015 ([id number]) Follow Up Appt 6 months 07-03-2015 - MD Maxim [facility] 07-03-2015 ([id number]) *Hepatic Function Panel 06-20-2015 - Melany Khanna [facility] 06-20-2015 PA-C ([id number]) Lipid 1996 panel - Serum or 06-20-2015 - Melany Khanna [facility] Plasma 06-20-2015 PA-C ([id number]) *Hepatic Function Panel 06-20-2015 - Melany Khanna [facility] 06-20-2015 PA-C ([id number]) Lipid panel [AGGREGATE] 06-20-2015 - Melany Khanna [facility] 06-20-2015 PA-C ([id number]) Follow Up Appt 3 months 04-13-2015 - MD Maxim [facility] 02-08-2016 ([id number]) Pacer Clinic 04-13-2015 - Johan Perry MD [facility] 02-08-2016 ([id number]) Prgrmng dev eval 04-13-2015 - MD Pauline [facility] implantable in persn 1 ld 04-14-2015 ([id number] ) dfb Follow Up Appt 3 months 04-13-2015 - MD Maxim [facility] 02-08-2016 ([id number]) Icd device prog eval, 1 04-13-2015 - MD Maxim [facility] sngl 04-14-2015 ([id number]) Pacer Clinic 04-13-2015 - MD Pauline [facility] 02-08-2016 ([id number]) Us abdominal real time 04-11-2015 - MD Pauline [facility] w/image limited 04-12-2015 ([id number]) Echo exam of abdomen 04-11-2015 - MD [facility]iel [facility] 04-12-2015 ([id number]) External Counterpulsation 04-06-2015 - [facility] Therapy 11-17-2016 PA-C ([id number]) Prgrmng dev eval 04-06-2015 - Juan Timmons [facility] implantable in persn 1 ld 11-17-2016 PA-C [place] ([id number]) dfb MULTIPLE SLIDE OPERATOR 03-29-2015 - Pauline [facility] 03-29-2015 PA-C ([id number]) Follow Up Appt 3 months 03-29-2015 - Melany Khanna [facility] 03-29-2015 PA-C ([id number]) MULTIPLE SLIDE OPERATOR 03-29-2015 - Melany Khanna [facility] 03-29-2015 PA-C ([id number]) Follow Up Appt 3 months 03-29-2015 - Melany Khanna [facility] 03-29-2015 PA-C ([id number]) Follow Up Appt 3 months 01-05-2015 - Melany Khanna [facility] 03-05-2015 PA-C ([id number]) Pacer Clinic 01-05-2015 - [facility] Timmons [facility] 03-05-2015 PA-C ([id number]) Prgrmng dev eval 01-05-2015 - [facility] Timmons [facility] implantable in persn 1 ld 01-08-2015 PA-C ([id number] ) dfb Follow Up Appt 3 months 01-05-2015 - Melany Khanna [facility] 03-05-2015 PA-C ([id number]) Icd device prog eval, 1 01-05-2015 - Melany Khanna, [facility] sngl 01-08-2015 PA-C ([id number]) Pacer Clinic 01-05-2015 - Melany Khanna, [facility] 03-05-2015 PA-C ([id number]) Cardiac Rehab 12-27-2014 - MD Pauline [facility] 03-05-2015 ([id number]) Documentation of current 12-27-2014 - MD Tommy [facility] medications 12-28-2014 ([id number]) Follow Up Appt 3 months 12-27-2014 - MD Maxim [facility] 12-27-2014 ([id number]) MMM 12-27-2014 - MD Pauline [facility] 12-27-2014 ([id number]) Pedal pulse taking 12-27-2014 - MD [facility]iel [facility] 12-28-2014 ([id number]) Cardiac Rehab 12-27-2014 - MD Pauline [facility] 03-05-2015 ([id number]) Documentation of current 12-27-2014 - Johan Perry MD [facility] medications 12-28-2014 ([id number]) Follow Up Appt 3 months 12-27-2014 - MD Maxim [facility] 12-27-2014 ([id number]) MMM 12-27-2014 - Johan Perry MD [facility] 12-27-2014 ([id number]) Pedal pulse taking 12-27-2014 - MD [facility] 12-28-2014 ([id number]) Follow Up BP Check 12-11-2014 - Melany Khanna [place] [facility] 12-11-2014 PA-C ([id number]) Left Heart Cath 12-11-2014 - MD Pauline [facility] 03-05-2015 ([id number]) Follow Up BP Check 12-11-2014 - Melany Khanna [place] [facility] 12-11-2014 PA-C ([id number]) Left Heart Cath 12-11-2014 - MD Pauline [facility] 03-05-2015 ([id number]) *BMP 12-06-2014 - Pauline [facility] 12-06-2014 PA-C ([id number]) Documentation of current 12-06-2014 - [facility] Kh[facility] 12-07-2014 PA-C ([id number]) Follow Up Appt Other 12-06-2014 - Melany Khanna [facility] 12-06-2014 PA-C ([id number]) *BMP 12-06-2014 - [facility] 12-06-2014 PA-C ([id number]) Documentation of current 12-06-2014 - Alejandro Timmons [facility] medications 12-07-2014 PA-C ([id number]) Follow Up Appt Other 12-06-2014 - Melany Khanna [facility] 12-06-2014 PA-C ([id number]) Lipid 1996 panel - Serum or 11-28-2014 - Melany Khanna [place] [facility] Plasma 12-21-2014 PA-C ([id number]) Lipid panel [AGGREGATE] 11-28-2014 - Melany Khanna [facility] 12-21-2014 PA-C ([id number]) Documentation of current 11-03-2014 - Johan Perry MD [facility] medications 11-04-2014 ([id number]) Follow Up Appt 6 months 11-03-2014 - MD Maxim [facility] 11-03-2014 ([id number]) MMM 11-03-2014 - MD [facility] 11-03-2014 ([id number]) Pedal pulse taking 11-03-2014 - MD Oziel [facility] 11-04-2014 ([id number]) Preoperative cardiovascular 11-03-2014 - [facility] examination 12-25-2014 ([id number]) Documentation of current 11-03-2014 - Johan Perry MD [facility] medications 11-04-2014 ([id number]) Follow Up Appt 6 months 11-03-2014 - MD Maxim [facility] 11-03-2014 ([id number]) MMM 11-03-2014 - MD [facility] 11-03-2014 ([id number]) Pedal pulse taking 11-03-2014 - MD Oziel [facility] 11-04-2014 ([id number]) Preoperative cardiovascular 11-03-2014 - [place] [facility] examination 12-25-2014 [facility] ([id number] [phone]) [facility]-27-2014 - [facility] 09-27-2014 PA-C ([id number]) Documentation of current 09-27-2014 - Alejandro Timmons [facility] medications 09-28-2014 PA-C ([id number]) Ecg routine ecg w/least 12 09-27-2014 - Pauline [facility] lds w/i&r 11-03-2014 PA-C Johan Perry MD ([id number]) Follow Up Appt 3 months 09-27-2014 - MD Maxim [facility] 11-03-2014 ([id number]) Follow Up Appt 6 months 09-27-2014 - Pauline Timmons [facility] 09-27-2014 PA-C ([id number]) Pacer Clinic 09-27-2014 - MD Pauline [facility] 11-03-2014 ([id number]) Pedal pulse taking 09-27-2014 - Melany Khanna [place] [facility] 09-28-2014 PA-C ([id number]) Prgrmng dev eval 09-27-2014 - Johan Perry MD [place] [facility] implantable in persn 1 ld 09-28-2014 ([id number] ) dfb MULTIPLE SLIDE OPERATOR 09-27-2014 - [facility] 09-27-2014 PA-C ([id number]) Documentation of current 09-27-2014 - Ale[facility] medications 09-28-2014 PA-C ([id number]) Follow Up Appt 3 months 09-27-2014 - Johan Perry MD [facility] 11-03-2014 ([id number]) Follow Up Appt 6 months 09-27-2014 - Melany Khanna [facility] 09-27-2014 PA-C ([id number]) Icd device prog eval, 1 09-27-2014 - Johan Perry MD [facility] sngl 09-28-2014 ([id number]) Pacer Clinic 09-27-2014 - Johan Perry MD [facility] 11-03-2014 ([id number]) Pedal pulse taking 09-27-2014 - Melany Khanna [facility] 09-28-2014 PA-C ([id number]) Pulse (Heart Rate) 09-27-2014 - Melany Khanna [facility] 11-03-2014 PA-C Johan Perry MD ([id number]) *Hepatic Function Panel 07-28-2014 - Johan Perry MD [facility] 08-25-2014 ([id number]) Lipid 1996 panel - Serum or 07-28-2014 - Johan Perry MD [facility] Plasma 08-25-2014 ([id number]) *Hepatic Function Panel 07-28-2014 - Johan Perry MD [facility] 08-25-2014 ([id number]) Lipid panel [AGGREGATE] 07-28-2014 - Johan Perry MD [facility] 08-25-2014 ([id number]) Follow Up Appt 3 months 06-12-2014 - Melany Khanna [facility] 09-15-2014 PA-C ([id number]) Pacer Clinic 06-12-2014 - [facility] 09-15-2014 PA-C ([id number]) Prgrmng dev eval 06-12-2014 - [facility] implantable in persn 1 ld 06-13-2014 PA-C ([id number] ) dfb Follow Up Appt 3 months 06-12-2014 - Melany Khanna [facility] 09-15-2014 PA-C ([id number]) Icd device prog eval, 1 06-12-2014 - Melany Khanna [facility] sngl 06-13-2014 PA-C ([id number]) Pacer Clinic 06-12-2014 - [facility] 09-15-2014 PA-C ([id number]) Follow Up Appt 3 months 03-14-2014 - Johan Perry MD [facility] 09-15-2014 ([id number]) Follow Up Appt 6 months 03-14-2014 - MD Maxim [facility] 03-14-2014 ([id number]) [facility] 03-14-2014 - Johan Perry MD [place] [facility] 03-14-2014 ([id number]) Pacer Clinic 03-14-2014 - MD Pauline [facility] 09-15-2014 ([id number]) Prgrmng dev eval 03-14-2014 - Johan Perry MD [place] [facility] implantable in persn 1 ld 03-14-2014 ([id number] ) dfb Follow Up Appt 3 months 03-14-2014 - Johan Perry MD [place] 09-15-2014 ([id number]) Follow Up Appt 6 months 03-14-2014 - MD Maxim [facility] 03-14-2014 ([id number]) Icd device prog eval, 1 03-14-2014 - Johan Perry MD [facility] sn 03-14-2014 ([id number]) [facility] 03-14-2014 - Johan Perry MD [place] [facility] 03-14-2014 ([id number]) Pacer Clinic 03-14-2014 - Johan Perry MD [facility] 09-15-2014 ([id number]) *Hepatic Function Panel 01-28-2014 - MD Maxim [facility] 02-06-2014 ([id number]) Lipid 1996 panel - Serum or 01-28-2014 - Johan Perry MD [facility] Plasma 02-06-2014 ([id number]) *Hepatic Function Panel 01-28-2014 - MD Maxim [facility] 02-06-2014 ([id number]) Lipid panel [AGGREGATE] 01-28-2014 - MD Maxim [facility] 02-06-2014 ([id number]) Follow Up Appt 2 months 12-16-2013 - MD Maxim [facility] 09-15-2014 ([id number]) Pacer Clinic 12-16-2013 - Johan Perry MD [place] [facility] 09-15-2014 ([id number]) Prgrmng dev eval 12-16-2013 - MD [facility] implantable in persn 1 ld 09-15-2014 ([id number] ) dfb Follow Up Appt 2 months 12-16-2013 - MD Maxim [facility] 09-15-2014 ([id number]) Icd device prog eval, 1 12-16-2013 - MD Maxim [facility] sngl 09-15-2014 ([id number]) Pacer Clinic 12-16-2013 - Johan Perry MD [facility] 09-15-2014 ([id number]) Follow Up Appt 3 months 09-15-2013 - MD Maxim [facility] 09-15-2014 ([id number]) Pacer Clinic 09-15-2013 - Johan Perry MD [facility] 09-15-2014 ([id number]) Prgrmg eval implantable in 09-15-2013 - MD Jose [facility] prsn dual lead dfb 09-15-2013 ([id number]) Follow Up Appt 3 months 09-15-2013 - MD Maxim [facility] 09-15-2014 ([id number]) Icd device progr eval, dual 09-15-2013 - Johan Perry MD [facility] 09-15-2013 ([id number]) Pacer Clinic 09-15-2013 - MD [facility] 09-15-2014 ([id number]) MULTIPLE SLIDE OPERATOR 09-06-2013 - Melany Khanna [facility] 09-06-2013 PA-C ([id number]) Follow Up Appt 6 months 09-06-2013 - Melany Khanna [facility] 09-06-2013 PA-C ([id number]) MULTIPLE SLIDE OPERATOR 09-06-2013 - Melany KhannaOziel [facility] 09-06-2013 PA-C ([id number]) Follow Up Appt 6 months 09-06-2013 - Melany Khanna [facility] 09-06-2013 PA-C ([id number]) *Hepatic Function Panel 07-28-2013 - MD Maxim [facility] 08-09-2013 ([id number]) Lipid 1996 panel - Serum or 07-28-2013 - Johan Perry MD [facility] Plasma 08-09-2013 ([id number]) *Hepatic Function Panel 07-28-2013 - MD Maxim [facility] 08-09-2013 ([id number]) Lipid panel [AGGREGATE] 07-28-2013 - MD Maxim [facility] 08-09-2013 ([id number]) Follow Up Appt 3 months 06-08-2013 - MD Maxim [facility] 08-25-2013 ([id number]) Pacer Clinic 06-08-2013 - MD [facility] 08-25-2013 ([id number]) Prgrmng dev eval 06-08-2013 - MD [facility] implantable in persn 1 ld 06-08-2013 ([id number] ) dfb Follow Up Appt 3 months 06-08-2013 - MD Maxim [facility] 08-25-2013 ([id number]) Icd device prog eval, 1 06-08-2013 - MD Maxim [facility] sngl 06-08-2013 ([id number]) Pacer Clinic 06-08-2013 - MD Pauline [facility] 08-25-2013 ([id number]) Follow Up Appt 3 months 03-09-2013 - MD Maxim [facility] 05-17-2013 ([id number]) Pacer Clinic 03-09-2013 - MD Oziel [facility] 05-17-2013 ([id number]) Prgrmng dev eval 03-09-2013 - MD [facility]iel [facility] implantable in persn 1 ld 03-09-2013 ([id number] ) dfb Follow Up Appt 3 months 03-09-2013 - MD Maxim [facility] 05-17-2013 ([id number]) Pacer Clinic 03-09-2013 - MD [facility] 05-17-2013 ([id number]) Ecg routine ecg w/least 12 03-08-2013 - MD Jose [facility] lds w/i&r 05-17-2013 ([id number]) Follow Up Appt 6 months 03-08-2013 - MD Maxim [facility] 05-17-2013 ([id number]) Icd device prog eval, 1 03-08-2013 - MD Maxim [facility] sngl 05-17-2013 ([id number]) MMM 03-08-2013 - MD [facility] 05-17-2013 ([id number]) Electrocardiogram, complete 03-08-2013 - MD Pauline [facility] 05-17-2013 ([id number]) Follow Up Appt 6 months 03-08-2013 - MD Maxim [facility] 05-17-2013 ([id number]) MMM 03-08-2013 - MD [facility]iel [facility] 05-17-2013 ([id number]) *Hepatic Function Panel 01-28-2013 - MD Maxim [facility] 02-04-2013 ([id number]) Lipid 1996 panel - Serum or 01-28-2013 - MD Pauline [facility] Plasma 02-04-2013 ([id number]) *Hepatic Function Panel 01-28-2013 - MD Maxim [facility] 02-04-2013 ([id number]) Lipid panel [AGGREGATE] 01-28-2013 - MD Maxim [facility] 02-04-2013 ([id number]) Follow Up Appt 3 months 12-08-2012 - MD Maxim [facility] 05-17-2013 ([id number]) Pacer Clinic 12-08-2012 - MD Pauline [facility] 05-17-2013 ([id number]) Prgrmng dev eval 12-08-2012 - MD [facility] implantable in persn 1 ld 12-08-2012 ([id number] ) dfb Follow Up Appt 3 months 12-08-2012 - MD Maxim [facility] 05-17-2013 ([id number]) Icd device prog eval, 1 12-08-2012 - MD Maxim [facility] sngl 12-08-2012 ([id number]) Pacer Clinic 12-08-2012 - MD Pauline [facility] 05-17-2013 ([id number]) Follow Up Appt 6 months 11-25-2012 - MD Maxim [facility] 11-25-2012 ([id number]) [facility] 11-25-2012 - Johan Perry MD [facility] 11-25-2012 ([id number]) Follow Up Appt 6 months 11-25-2012 - MD Maxim [facility] 11-25-2012 ([id number]) [facility] 11-25-2012 - Johan Perry MD [place] [facility] 11-25-2012 ([id number]) Follow Up Appt 3 months 09-03-2012 - MD Maxim [facility] 05-17-2013 ([id number]) Pacer Clinic 09-03-2012 - MD [facility] 05-17-2013 ([id number]) Prgrmng dev eval 09-03-2012 - MD [facility] implantable in persn 1 ld 09-03-2012 ([id number] ) dfb Follow Up Appt 3 months 09-03-2012 - [facility] 05-17-2013 ([id number]) Icd device prog eval, 1 09-03-2012 - Johan Perry MD [facility] sngl 09-03-2012 ([id number]) Pacer Clinic 09-03-2012 - Johan Perry MD [facility] 05-17-2013 ([id number]) *BMP 09-01-2012 - [facility] 05-17-2013 Héctor SIMMONS ([id number]) *Hepatic Function Panel 09-01-2012 - Rahul [facility] 05-17-2013 Héctor SIMMONS ([id number]) Lipid 1996 panel - Serum or 09-01-2012 - Rahul W [facility] Plasma 05-17-2013 Héctor SIMMONS ([id number]) Magnesium [Mass/volume] in 09-01-2012 - [facility] Serum or Plasma 05-17-2013 Héctor SIMMONS ([id number]) *BMP 09-01-2012 - [facility] 05-17-2013 Héctor SIMMONS ([id number]) *Hepatic Function Panel 09-01-2012 - Rahul W [facility] 05-17-2013 Héctor SIMMONS ([id number]) Lipid panel [AGGREGATE] 09-01-2012 - Rahul [facility] 05-17-2013 Héctor SIMMONS ([id number]) Magnesium 09-01-2012 - [facility] 05-17-2013 H[facility]ctor SIMMONS ([id number]) Follow Up Appt 6 months 03-04-2012 - [facility] 03-04-2012 Héctor SIMMONS ([id number]) Follow Up Appt 6 months 03-04-2012 - [facility]ul [facility] 03-04-2012 Héctor SIMMONS ([id number]) *Hepatic Function Panel 02-04-2012 - Rahul [facility] 02-11-2012 Héctor SIMMONS ([id number]) Lipid 1996 panel - Serum or 02-04-2012 - Rahul W [facility] Plasma 02-11-2012 Héctor SIMMONS ([id number]) *Hepatic Function Panel 02-04-2012 - Rahul W [facility] 02-11-2012 Héctor SIMMONS ([id number]) Lipid panel [AGGREGATE] 02-04-2012 - Rahul W [facility] 02-11-2012 Héctor SIMMONS ([id number]) Follow Up Appt 4 months 11-24-2011 - [facility] 11-24-2011 Héctor SIMMONS ([id number]) Follow Up Appt 4 months 11-24-2011 - Rahul [facility] 11-24-2011 Héctor SIMMONS ([id number]) *Hepatic Function Panel 10-27-2011 - [facility]ul [facility] 10-27-2011 Héctor SIMMONS ([id number]) Lipid 1996 panel - Serum or 10-27-2011 - Rahul [facility] Plasma 10-27-2011 Héctor SIMMONS ([id number]) *Hepatic Function Panel 10-27-2011 - Rahul [facility] 10-27-2011 Héctor SIMMONS ([id number]) Lipid panel [AGGREGATE] 10-27-2011 - Rahul [facility] 10-27-2011 Héctor SIMMONS ([id number]) *BMP 10-16-2011 - [facility] 10-27-2011 Héctor SIMMONS ([id number]) *BMP 10-16-2011 - [facility] 10-27-2011 Héctor SIMMONS ([id number]) Ecg routine ecg w/least 08-26-2011 - Rahul [facility] lds w/i&r 08-26-2011 Héctor SIMMONS ([id number]) Follow Up Appt 3 months 08-26-2011 - Rahul [facility] 08-26-2011 Héctor SIMMONS ([id number]) Electrocardiogram, complete 08-26-2011 - Rahul W [facility] 08-26-2011 Héctor SIMMONS ([id number]) Follow Up Appt 3 months 08-26-2011 - Rahul [facility] 08-26-2011 Héctor SIMMONS ([id number]) Ecg routine ecg w/least 12 06-27-2011 - [facility] lds w/i&r 06-27-2011 Héctor SIMMONS ([id number]) Follow Up Appt 2 months 06-27-2011 - Rahul Allen [facility] 06-27-2011 Héctor SIMMONS ([id number]) Follow Up Appt 2 months 06-27-2011 - Rahul Allen [facility] 06-27-2011 Héctor SIMMONS ([id number]) Lipid panel [AGGREGATE] 06-27-2011 - Rahul Allen [facility] 06-27-2011 Héctor SIMMONS ([id number]) Follow Up Appt 4 months 06-10-2011 - Rahul Allen [facility] 06-10-2011 Héctor SIMMONS ([id number]) Follow Up Appt 4 months 06-10-2011 - Rahul Allen [facility] 06-10-2011 Héctor SIMMONS ([id number]) Implantation of automatic 07-16-2010 [facility] cardiac defibrillator ([id number]) Placement of stent in 07-16-2010 [facility] coronary artery ([id number]) Implantation of automatic 07-16-2010 [facility] cardiac defibrillator Service, [facility] ([id number]) Plan of Treatment Plan Description Date Location COLONOSCOPY COLONOSCOPY 01-07-2028 - [facility] 01-07-2028 ([id number]) COLORECTAL CANCER COLORECTAL CANCER 01-07-2028 - [facility] inic SCREENING,SEE MODIFIER SCREENING,SEE MODIFIER 01-07-2028 ([id number]) DTAP,TDAP,TD (3 - Td) DTAP,TDAP,TD (3 - Td) 10-17-2027 - [facility] 10-17-2027 ([id number]) ADVANCE DIRECTIVE ADVANCE DIRECTIVE 10-26-2024 - [facility] inic DISCUSSION DISCUSSION 10-26-2024 ([id number]) HEMOGLOBIN/HEMATOCRIT HEMOGLOBIN/HEMATOCRIT 12-08-2020 - [facility] 12-08-2020 ([id number]) DIABETIC FOOT EXAM DIABETIC FOOT EXAM 11-26-2020 - [facility] 11-26-2020 ([id number]) Comment: Postponed from 07/16/2019 (C urrent Illness) ANNUAL PCP TEAM ANNUAL PCP TEAM 10-26-2020 - [facility] CHRONIC DISEASE VISIT CHRONIC DISEASE VISIT 10-26-2020 ([id number]) BP CONTROLLED BP CONTROLLED 10-26-2020 - [facility] (<130/80) (<130/80) 10-26-2020 ([id number]) SHINGRIX VACCINE (1 of SHINGRIX VACCINE (1 of 10-26-2020 - [facility] 2) 2) 10-26-2020 ([id number]) Comment: Postponed from 10/20/1995 (D eclined at this time) URINE ALBUMIN:CREATININE URINE ALBUMIN:CREATININE 10-13-2020 - [facility] RATIO RATIO 10-13-2020 ([id number]) LDL CHOLESTEROL LDL CHOLESTEROL 10-13-2020 - [facility] 10-13-2020 ([id number]) SERUM CREATININE SERUM CREATININE 10-13-2020 - [facility] 10-13-2020 ([id number]) DILATED RETINAL EXAM DILATED RETINAL EXAM 08-10-2020 - [facility] 08-10-2020 ([id number]) HBA1C HBA1C 04-15-2020 - [facility] 04-15-2020 ([id number]) HEMOGLOBIN/HEMATOCRIT HEMOGLOBIN/HEMATOCRIT 01-15-2020 - [facility] 01-15-2020 ([id number]) INFLUENZA (#1) INFLUENZA (#1) 2019 - [facility] 11-29-2019 ([id number]) Appointment Appointment 07-07-2017 - [facility] 07-07-2017 [facility] ([id number]) Appointment Appointment 05-04-2017 - [facility] 05-04-2017 Group ([id number]) Follow Up Appt 3 months Follow Up Appt 3 months 01-30-2017 - [facility] 02-02-2017 Group ([id number]) Pacer Clinic Pacer Clinic 01-30-2017 - [facility] 02-02-2017 Group ([id number]) Appointment Appointment 01-30-2017 - [facility] 01-30-2017 Group ([id number]) Appointment Appointment 01-01-2017 - [facility] 01-01-2017 Group ([id number]) MULTIPLE SLIDE OPERATOR MULTIPLE SLIDE OPERATOR 01-01-2017 - [facility] 01-01-2017 Group ([id number]) Follow Up Appt 6 months Follow Up Appt 6 months 01-01-2017 - [facility] 01-01-2017 Group ([id number]) Appointment Appointment 12-24-2016 - [facility] 12-24-2016 Group ([id number]) *Hepatic Function Panel *Hepatic Function Panel 11-18-2016 - [facility] 05-22-2016 Group ([id number]) *Lipid Profile CC PCP *Lipid Profile CC PCP 11-18-2016 - [facility] 05-22-2016 Group ([id number]) Follow Up Appt 3 months Follow Up Appt 3 months 10-30-2016 - [facility] 12-17-2016 Group ([id number]) Pacer Clinic Pacer Clinic 10-30-2016 - [facility] 12-17-2016 Group ([id number]) Appointment Appointment 10-30-2016 - [facility] 10-30-2016 Group ([id number]) Appointment Appointment 10-30-2016 - [facility] 10-30-2016 Group ([id number]) Follow Up Appt 3 months Follow Up Appt 3 months 10-30-2016 - [facility] 10-30-2016 Group ([id number]) Pacer Clinic Pacer Clinic 10-30-2016 - [facility] 10-30-2016 Group ([id number]) Appointment Appointment 09-18-2016 - [facility] 09-18-2016 Group ([id number]) Appointment Appointment 09-04-2016 - [facility] 09-04-2016 Group ([id number]) Appointment Appointment 09-04-2016 - [facility] 09-04-2016 Group ([id number]) Follow Up Appt 3 months Follow Up Appt 3 months 09-04-2016 - [facility] 12-17-2016 Group ([id number]) MMM MMM 09-04-2016 - [facility] 12-17-2016 Group ([id number]) Follow Up Appt 3 months Follow Up Appt 3 months 09-04-2016 - [facility] 09-04-2016 Group ([id number]) MMM MMM 09-04-2016 - [facility] 09-04-2016 Group ([id number]) Follow Up Appt 3 months Follow Up Appt 3 months 07-30-2016 - [facility] 11-17-2016 Group ([id number]) Pacer Clinic Pacer Clinic 07-30-2016 - [facility] 11-17-2016 Group ([id number]) Appointment Appointment 07-30-2016 - [facility] 07-30-2016 Group ([id number]) Follow Up Appt 3 months Follow Up Appt 3 months 07-30-2016 - [facility] 11-17-2016 Group ([id number]) Pacer Clinic Pacer Clinic 07-30-2016 - [facility] 11-17-2016 Group ([id number]) *BMP *BMP 06-19-2016 - [facility] 06-19-2016 Group ([id number]) Cardiac Rehab Cardiac Rehab 06-19-2016 - [facility] 11-17-2016 Group ([id number]) MULTIPLE SLIDE OPERATOR MULTIPLE SLIDE OPERATOR 06-19-2016 - [facility] 06-19-2016 Group ([id number]) Follow Up Appt 3 months Follow Up Appt 3 months 06-19-2016 - [facility] 11-17-2016 Group ([id number]) *Magnesium *Magnesium 06-19-2016 - [facility] 06-19-2016 Group ([id number]) Pacer Clinic Pacer Clinic 06-19-2016 - [facility] 11-17-2016 Group ([id number]) *BMP *BMP 06-19-2016 - [facility] 06-19-2016 Group ([id number]) Cardiac Rehab Cardiac Rehab 06-19-2016 - [facility] 11-17-2016 Group ([id number]) MULTIPLE SLIDE OPERATOR MULTIPLE SLIDE OPERATOR 06-19-2016 - [facility] 06-19-2016 Group ([id number]) Follow Up Appt 3 months Follow Up Appt 3 months 06-19-2016 - [facility] 11-17-2016 Group ([id number]) *Magnesium *Magnesium 06-19-2016 - [facility] 06-19-2016 Group ([id number]) Pacer Clinic Pacer Clinic 06-19-2016 - [facility] 11-17-2016 Group ([id number]) *Hepatic Function Panel *Hepatic Function Panel 05-21-2016 - [facility] 05-21-2016 Group ([id number]) *Lipid Profile CC PCP *Lipid Profile CC PCP 05-21-2016 - [facility] 05-21-2016 Group ([id number]) *Hepatic Function Panel *Hepatic Function Panel 05-21-2016 - [facility] 05-21-2016 Group ([id number]) *Lipid Profile CC PCP *Lipid Profile CC PCP 05-21-2016 - [facility] 05-21-2016 Group ([id number]) Follow Up Appt 3 months Follow Up Appt 3 months 04-30-2016 - [facility] 11-17-2016 Group ([id number]) Pacer Clinic Pacer Clinic 04-30-2016 - [facility] 11-17-2016 Group ([id number]) Follow Up Appt 3 months Follow Up Appt 3 months 04-30-2016 - [facility] 11-17-2016 Group ([id number]) Pacer Clinic Pacer Clinic 04-30-2016 - [facility] 11-17-2016 Group ([id number]) Carotid duplex Carotid duplex 03-14-2016 - [facility] 03-14-2016 Group ([id number]) Follow Up Appt 3 months Follow Up Appt 3 months 03-14-2016 - [facility] 03-14-2016 Group ([id number]) *PT/INR *PT/INR 03-14-2016 - [facility] 03-14-2016 Group ([id number]) MMM MMM 03-14-2016 - [facility] 03-14-2016 Group ([id number]) Carotid duplex Carotid duplex 03-14-2016 - [facility] 03-14-2016 Group ([id number]) *PT/INR *PT/INR 03-14-2016 - [facility] 03-14-2016 Group ([id number]) Follow Up Appt 3 months Follow Up Appt 3 months 03-14-2016 - [facility] 03-14-2016 Group ([id number]) MMM MMM 03-14-2016 - [facility] 03-14-2016 Group ([id number]) *BMP *BMP 01-30-2016 - [facility] 01-30-2016 Group ([id number]) *CBC without Diff *CBC without Diff 01-30-2016 - [facility] 01-30-2016 [facility] ([id number]) X-Ray, Chest, PA & Lateral X-Ray, Chest, PA & Lateral 01-30-2016 - [facility] 02-08-2016 Group ([id number]) EKG (In office) EKG (In office) 01-30-2016 - [facility] 01-30-2016 Group ([id number]) Follow Up Appt 6 weeks Follow Up Appt 6 weeks 01-30-2016 - [facility] 01-30-2016 Group ([id number]) *PT/INR *PT/INR 01-30-2016 - [facility] 01-30-2016 Group ([id number]) Left Heart Cath Left Heart Cath 01-30-2016 - [facility] 01-30-2016 Group ([id number]) MMM MMM 01-30-2016 - [facility] 01-30-2016 Group ([id number]) US Abdominal (aneurysm US Abdominal (aneurysm 01-30-2016 - [facility]) screening) 01-30-2016 Group ([id number]) *BMP *BMP 01-30-2016 - [facility] 01-30-2016 Group ([id number]) *CBC without Diff *CBC without Diff 01-30-2016 - [facility] 01-30-2016 Group ([id number]) X-Ray, Chest, PA & Lateral X-Ray, Chest, PA & Lateral 01-30-2016 - [facility] 02-08-2016 Group ([id number]) *PT/INR *PT/INR 01-30-2016 - [facility] 01-30-2016 Group ([id number]) US Abdominal (aneurysm US Abdominal (aneurysm 01-30-2016 - [facility]) screening) 01-30-2016 Group ([id number]) EKG (In office) EKG (In office) 01-30-2016 - [facility] 01-30-2016 Group ([id number]) Follow Up Appt 6 weeks Follow Up Appt 6 weeks 01-30-2016 - [facility] 01-30-2016 Group ([id number]) Left Heart Cath Left Heart Cath 01-30-2016 - [facility] 01-30-2016 Group ([id number]) MMM MMM 01-30-2016 - [facility] 01-30-2016 Group ([id number]) Follow Up Appt 3 months Follow Up Appt 3 months 01-23-2016 - [facility] 11-17-2016 Group ([id number]) Pacer Clinic Pacer Clinic 01-23-2016 - [facility] 11-17-2016 Group ([id number]) Follow Up Appt 3 months Follow Up Appt 3 months 01-23-2016 - [facility] 11-17-2016 Group ([id number]) Pacer Clinic Pacer Clinic 01-23-2016 - [facility] 11-17-2016 Group ([id number]) *Hepatic Function Panel *Hepatic Function Panel 11-05-2015 - [facility] 11-20-2015 Group ([id number]) *Lipid Profile CC PCP *Lipid Profile CC PCP 11-05-2015 - [facility] 11-20-2015 Group ([id number]) *Hepatic Function Panel *Hepatic Function Panel 11-05-2015 - [facility] 11-20-2015 Group ([id number]) *Lipid Profile CC PCP *Lipid Profile CC PCP 11-05-2015 - [facility] 11-20-2015 Group ([id number]) Follow Up Appt 3 months Follow Up Appt 3 months 10-18-2015 - [facility] 02-08-2016 Group ([id number]) Pacer Clinic Pacer Clinic 10-18-2015 - [facility] 02-08-2016 Group ([id number]) Follow Up Appt 3 months Follow Up Appt 3 months 10-18-2015 - [facility] 02-08-2016 Group ([id number]) Pacer Clinic Pacer Clinic 10-18-2015 - [facility] 02-08-2016 Group ([id number]) Follow Up Appt 3 months Follow Up Appt 3 months 07-18-2015 - [facility] 02-08-2016 Group ([id number]) Pacer Clinic Pacer Clinic 07-18-2015 - [facility] 02-08-2016 Group ([id number]) Follow Up Appt 3 months Follow Up Appt 3 months 07-18-2015 - [facility] 02-08-2016 Group ([id number]) Pacer Clinic Pacer Clinic 07-18-2015 - [facility] 02-08-2016 Group ([id number]) [facility] MULTIPLE SLIDE OPERATOR 07-03-2015 - [facility] 07-03-2015 Group ([id number]) Follow Up Appt 6 months Follow Up Appt 6 months 07-03-2015 - [facility] 07-03-2015 Group ([id number]) MULTIPLE SLIDE OPERATOR MULTIPLE SLIDE OPERATOR 07-03-2015 - [facility] 07-03-2015 Group ([id number]) Follow Up Appt 6 months Follow Up Appt 6 months 07-03-2015 - [facility] 07-03-2015 Group ([id number]) *Hepatic Function Panel *Hepatic Function Panel 06-20-2015 - [facility] 06-20-2015 Group ([id number]) *Lipid Profile CC PCP *Lipid Profile CC PCP 06-20-2015 - [facility] 06-20-2015 Group ([id number]) *Hepatic Function Panel *Hepatic Function Panel 06-20-2015 - [facility] 06-20-2015 Group ([id number]) *Lipid Profile CC PCP *Lipid Profile CC PCP 06-20-2015 - [facility] 06-20-2015 Group ([id number]) Follow Up Appt 3 months Follow Up Appt 3 months 04-13-2015 - [facility] 02-08-2016 Group ([id number]) Pacer Clinic Pacer Clinic 04-13-2015 - [facility] 02-08-2016 Group ([id number]) Follow Up Appt 3 months Follow Up Appt 3 months 04-13-2015 - [facility] 02-08-2016 Group ([id number]) Pacer Clinic Pacer Clinic 04-13-2015 - [facility] 02-08-2016 Group ([id number]) US Abdominal (aneurysm US Abdominal (aneurysm 04-11-2015 - [facility]) screening) 04-05-2015 Group ([id number]) US Abdominal (aneurysm US Abdominal (aneurysm 04-11-2015 - [facility]) screening) 04-05-2015 Group ([id number]) External Counterpulsation External Counterpulsation 04-06-2015 - [facility] [address] [facility], Therapy [address] [facility], 04-06-2015 Group ([id number]) [address], [place], [place], [address], [place], [id number] External Counterpulsation External Counterpulsation 04-06-2015 - [facility] [address] [facility], Therapy [address] [facility], 02-08-2016 Group ([id number]) [address] [place], [place], [address], [place], [id number] MULTIPLE SLIDE OPERATOR MULTIPLE SLIDE OPERATOR 03-29-2015 - [facility] 03-29-2015 Group ([id number]) Follow Up Appt 3 months Follow Up Appt 3 months 03-29-2015 - [facility] 03-29-2015 Group ([id number]) MULTIPLE SLIDE OPERATOR MULTIPLE SLIDE OPERATOR 03-29-2015 - [facility] 03-29-2015 Group ([id number]) Follow Up Appt 3 months Follow Up Appt 3 months 03-29-2015 - [facility] 03-29-2015 Group ([id number]) Follow Up Appt 3 months Follow Up Appt 3 months 01-05-2015 - [facility] 03-05-2015 Group ([id number]) Pacer Clinic Pacer Clinic 01-05-2015 - [facility] 03-05-2015 Group ([id number]) Follow Up Appt 3 months Follow Up Appt 3 months 01-05-2015 - [facility] 03-05-2015 Group ([id number]) Pacer Clinic Pacer Clinic 01-05-2015 - [facility] 03-05-2015 Group ([id number]) Cardiac Rehab Cardiac Rehab 12-27-2014 - [facility] 03-05-2015 Group ([id number]) Follow Up Appt 3 months Follow Up Appt 3 months 12-27-2014 - [facility] 12-27-2014 Group ([id number]) MMM MMM 12-27-2014 - [facility] 12-27-2014 Group ([id number]) Cardiac Rehab Cardiac Rehab 12-27-2014 - [facility] 03-05-2015 Group ([id number]) Follow Up Appt 3 months Follow Up Appt 3 months 12-27-2014 - [facility] 12-27-2014 Group ([id number]) MMM MMM 12-27-2014 - [facility] 12-27-2014 Group ([id number]) Follow Up BP Check Follow Up BP Check 12-11-2014 - [place] [facility] 12-11-2014 Group ([id number]) Left Heart Cath Left Heart Cath 12-11-2014 - [facility] 12-11-2014 Group ([id number]) Follow Up BP Check Follow Up BP Check 12-11-2014 - [facility] 12-11-2014 Group ([id number]) Left Heart Cath Left Heart Cath 12-11-2014 - [facility] 12-11-2014 Group ([id number]) *BMP *BMP 12-06-2014 - [facility] 12-06-2014 Group ([id number]) Follow Up Appt Other Follow Up Appt Other 12-06-2014 - [facility] 12-06-2014 Group ([id number]) *BMP *BMP 12-06-2014 - [facility] 12-06-2014 Group ([id number]) Follow Up Appt Other Follow Up Appt Other 12-06-2014 - [facility] 12-06-2014 Group ([id number]) *Lipid Profile CC PCP *Lipid Profile CC PCP 11-28-2014 - [facility] 12-21-2014 Group ([id number]) *Lipid Profile CC PCP *Lipid Profile CC PCP 11-28-2014 - [facility] 12-21-2014 Group ([id number]) Follow Up Appt 6 months Follow Up Appt 6 months 11-03-2014 - [facility] 11-03-2014 Group ([id number]) MMM MMM 11-03-2014 - [facility] 11-03-2014 Group ([id number]) Follow Up Appt 6 months Follow Up Appt 6 months 11-03-2014 - [facility] 11-03-2014 Group ([id number]) MMM MMM 11-03-2014 - [facility] 11-03-2014 Group ([id number]) MULTIPLE SLIDE OPERATOR MULTIPLE SLIDE OPERATOR 09-27-2014 - [facility] 09-27-2014 Group ([id number]) EKG (In office) EKG (In office) 09-27-2014 - [facility] 09-27-2014 Group ([id number]) Follow Up Appt 3 months Follow Up Appt 3 months 09-27-2014 - [facility] 11-03-2014 Group ([id number]) Follow Up Appt 6 months Follow Up Appt 6 months 09-27-2014 - [facility] 09-27-2014 Group ([id number]) Pacer Clinic Pacer Clinic 09-27-2014 - [facility] 11-03-2014 Group ([id number]) MULTIPLE SLIDE OPERATOR [facility] 09-27-2014 - [facility] 09-27-2014 Group ([id number]) EKG (In office) EKG (In office) 09-27-2014 - [facility] 09-27-2014 Group ([id number]) Follow Up Appt 3 months Follow Up Appt 3 months 09-27-2014 - [facility] 11-03-2014 Group ([id number]) Follow Up Appt 6 months Follow Up Appt 6 months 09-27-2014 - [facility] 09-27-2014 Group ([id number]) Pacer Clinic Pacer Clinic 09-27-2014 - [facility] 11-03-2014 Group ([id number]) *Hepatic Function Panel *Hepatic Function Panel 07-28-2014 - [facility] 08-25-2014 Group ([id number]) *Lipid Profile CC PCP *Lipid Profile CC PCP 07-28-2014 - [facility] 08-25-2014 Group ([id number]) *Hepatic Function Panel *Hepatic Function Panel 07-28-2014 - [facility] 08-25-2014 Group ([id number]) *Lipid Profile CC PCP *Lipid Profile CC PCP 07-28-2014 - [facility] 08-25-2014 Group ([id number]) Follow Up Appt 3 months Follow Up Appt 3 months 06-12-2014 - [facility] 09-15-2014 Group ([id number]) Pacer Clinic Pacer Clinic 06-12-2014 - [facility] 09-15-2014 Group ([id number]) Follow Up Appt 3 months Follow Up Appt 3 months 06-12-2014 - [facility] 09-15-2014 Group ([id number]) Pacer Clinic Pacer Clinic 06-12-2014 - [facility] 09-15-2014 Group ([id number]) Follow Up Appt 3 months Follow Up Appt 3 months 03-14-2014 - [facility] 09-15-2014 Group ([id number]) Follow Up Appt 6 months Follow Up Appt 6 months 03-14-2014 - [facility] 03-14-2014 Group ([id number]) MMM MMM 03-14-2014 - [facility] 03-14-2014 Group ([id number]) Pacer Clinic Pacer Clinic 03-14-2014 - [facility] 09-15-2014 Group ([id number]) Follow Up Appt 3 months Follow Up Appt 3 months 03-14-2014 - [facility] 09-15-2014 Group ([id number]) Follow Up Appt 6 months Follow Up Appt 6 months 03-14-2014 - [facility] 03-14-2014 Group ([id number]) MMM MMM 03-14-2014 - [facility] 03-14-2014 Group ([id number]) Pacer Clinic Pacer Clinic 03-14-2014 - [facility] 09-15-2014 Group ([id number]) *Hepatic Function Panel *Hepatic Function Panel 01-28-2014 - [facility] 02-06-2014 Group ([id number]) *Lipid Profile CC PCP *Lipid Profile CC PCP 01-28-2014 - [facility] 02-06-2014 Group ([id number]) *Hepatic Function Panel *Hepatic Function Panel 01-28-2014 - [facility] 02-06-2014 Group ([id number]) *Lipid Profile CC PCP *Lipid Profile CC PCP 01-28-2014 - [facility] 02-06-2014 Group ([id number]) Follow Up Appt 2 months Follow Up Appt 2 months 12-16-2013 - [facility] 09-15-2014 Group ([id number]) Pacer Clinic Pacer Clinic 12-16-2013 - [facility] 09-15-2014 Group ([id number]) Follow Up Appt 2 months Follow Up Appt 2 months 12-16-2013 - [facility] 09-15-2014 Group ([id number]) Pacer Clinic Pacer Clinic 12-16-2013 - [facility] 09-15-2014 Group ([id number]) Follow Up Appt 3 months Follow Up Appt 3 months 09-15-2013 - [facility] 09-15-2014 Group ([id number]) Pacer Clinic Pacer Clinic 09-15-2013 - [place] [facility] 09-15-2014 Group ([id number]) Follow Up Appt 3 months Follow Up Appt 3 months 09-15-2013 - [facility] 09-15-2014 Group ([id number]) Pacer Clinic Pacer Clinic 09-15-2013 - [place] [facility] 09-15-2014 Group ([id number]) MULTIPLE SLIDE OPERATOR MULTIPLE SLIDE OPERATOR 09-06-2013 - [place] [facility] 09-06-2013 Group ([id number]) Follow Up Appt 6 months Follow Up Appt 6 months 09-06-2013 - [place] [facility] 09-06-2013 Group ([id number]) MULTIPLE SLIDE OPERATOR MULTIPLE SLIDE OPERATOR 09-06-2013 - [facility] 09-06-2013 Group ([id number]) Follow Up Appt 6 months Follow Up Appt 6 months 09-06-2013 - [facility] 09-06-2013 Group ([id number]) *Hepatic Function Panel *Hepatic Function Panel 07-28-2013 - [place] [facility] 08-08-2013 Group ([id number]) *Lipid Profile CC PCP *Lipid Profile CC PCP 07-28-2013 - [facility] 08-08-2013 Group ([id number]) *Hepatic Function Panel *Hepatic Function Panel 07-28-2013 - [facility] 08-08-2013 Group ([id number]) *Lipid Profile CC PCP *Lipid Profile CC PCP 07-28-2013 - [facility] 08-08-2013 Group ([id number]) Follow Up Appt 3 months Follow Up Appt 3 months 06-08-2013 - [facility] 08-25-2013 Group ([id number]) Pacer Clinic Pacer Clinic 06-08-2013 - [place] [facility] 08-25-2013 Group ([id number]) Follow Up Appt 3 months Follow Up Appt 3 months 06-08-2013 - [place] [facility] 08-25-2013 Group ([id number]) Pacer Clinic Pacer Clinic 06-08-2013 - [facility] 08-25-2013 Group ([id number]) Follow Up Appt 3 months Follow Up Appt 3 months 03-09-2013 - [facility] 05-17-2013 Group ([id number]) Pacer Clinic Pacer Clinic 03-09-2013 - [place] [facility] 05-17-2013 Group ([id number]) Follow Up Appt 3 months Follow Up Appt 3 months 03-09-2013 - [facility] 05-17-2013 Group ([id number]) Pacer Clinic Pacer Clinic 03-09-2013 - [place] [facility] 05-17-2013 Group ([id number]) EKG (In office) EKG (In office) 03-08-2013 - [facility] 05-17-2013 Group ([id number]) Follow Up Appt 6 months Follow Up Appt 6 months 03-08-2013 - [place] [facility] 05-17-2013 Group ([id number]) MMM MMM 03-08-2013 - [place] [facility] 05-17-2013 Group ([id number]) EKG (In office) EKG (In office) 03-08-2013 - [facility] 05-17-2013 Group ([id number]) Follow Up Appt 6 months Follow Up Appt 6 months 03-08-2013 - [facility] 05-17-2013 Group ([id number]) MMM MMM 03-08-2013 - [facility] 05-17-2013 Group ([id number]) *Hepatic Function Panel *Hepatic Function Panel 01-28-2013 - [facility] 02-04-2013 Group ([id number]) *Lipid Profile *Lipid Profile 01-28-2013 - [place] [facility] 02-04-2013 Group ([id number]) *Hepatic Function Panel *Hepatic Function Panel 01-28-2013 - [facility] 02-04-2013 Group ([id number]) *Lipid Profile *Lipid Profile 01-28-2013 - [facility] 02-04-2013 Group ([id number]) Follow Up Appt 3 months Follow Up Appt 3 months 12-08-2012 - [facility] 05-17-2013 Group ([id number]) [facility] 12-08-2012 - [facility] 05-17-2013 Group ([id number]) Follow Up Appt 3 months Follow Up Appt 3 months 12-08-2012 - [facility] 05-17-2013 Group ([id number]) [facility] 12-08-2012 - [facility] 05-17-2013 Group ([id number]) Follow Up Appt 6 months Follow Up Appt 6 months 11-25-2012 - [facility] 11-25-2012 Group ([id number]) MMM MMM 11-25-2012 - [facility] 11-25-2012 Group ([id number]) Follow Up Appt 6 months Follow Up Appt 6 months 11-25-2012 - [facility] 11-25-2012 Group ([id number]) MMM MMM 11-25-2012 - [facility] 11-25-2012 Group ([id number]) Follow Up Appt 3 months Follow Up Appt 3 months 09-03-2012 - [facility] 05-17-2013 Group ([id number]) [facility] 09-03-2012 - [facility] 05-17-2013 Group ([id number]) Follow Up Appt 3 months Follow Up Appt 3 months 09-03-2012 - [facility] 05-17-2013 Group ([id number]) [facility] 09-03-2012 - [facility] 05-17-2013 Group ([id number]) *BMP *BMP 09-01-2012 - [facility] 03-04-2012 Group ([id number]) *Hepatic Function Panel *Hepatic Function Panel 09-01-2012 - [facility] 05-17-2013 Group ([id number]) *Lipid Profile *Lipid Profile 09-01-2012 - [facility] 05-17-2013 Group ([id number]) *Magnesium *Magnesium 09-01-2012 - [facility] 05-17-2013 Group ([id number]) *BMP *BMP 09-01-2012 - [facility] 03-04-2012 Group ([id number]) *Hepatic Function Panel *Hepatic Function Panel 09-01-2012 - [facility] 05-17-2013 Group ([id number]) *Lipid Profile *Lipid Profile 09-01-2012 - [facility] 05-17-2013 Group ([id number]) *Magnesium *Magnesium 09-01-2012 - [facility] 05-17-2013 Group ([id number]) Follow Up Appt 6 months Follow Up Appt 6 months 03-04-2012 - [facility] 03-04-2012 Group ([id number]) Follow Up Appt 6 months Follow Up Appt 6 months 03-04-2012 - [facility] 03-04-2012 Group ([id number]) *Hepatic Function Panel *Hepatic Function Panel 02-04-2012 - [facility] 02-11-2012 Group ([id number]) *Lipid Profile *Lipid Profile 02-04-2012 - [facility] 02-11-2012 Group ([id number]) *Hepatic Function Panel *Hepatic Function Panel 02-04-2012 - [facility] 02-11-2012 Group ([id number]) *Lipid Profile *Lipid Profile 02-04-2012 - [facility] 02-11-2012 Group ([id number]) Follow Up Appt 4 months Follow Up Appt 4 months 11-24-2011 - [facility] 11-24-2011 Group ([id number]) Follow Up Appt 4 months Follow Up Appt 4 months 11-24-2011 - [facility] 11-24-2011 Group ([id number]) *Hepatic Function Panel *Hepatic Function Panel 10-29-2011 - [facility] 10-27-2011 Group ([id number]) *Lipid Profile *Lipid Profile 10-29-2011 - [facility] 10-27-2011 Group ([id number]) *Hepatic Function Panel *Hepatic Function Panel 10-29-2011 - [facility] 10-27-2011 Group ([id number]) *Lipid Profile *Lipid Profile 10-29-2011 - [facility] 10-27-2011 Group ([id number]) *BMP *BMP 10-16-2011 - [facility] 10-27-2011 Group ([id number]) *BMP *BMP 10-16-2011 - [facility] 10-27-2011 Group ([id number]) EKG (In office) EKG (In office) 08-26-2011 - [facility] 08-26-2011 Group ([id number]) Follow Up Appt 3 months Follow Up Appt 3 months 08-26-2011 - [facility] 08-26-2011 Group ([id number]) EKG (In office) EKG (In office) 08-26-2011 - [facility] 08-26-2011 Group ([id number]) Follow Up Appt 3 months Follow Up Appt 3 months 08-26-2011 - [facility] 08-26-2011 Group ([id number]) EKG (In office) EKG (In office) 06-27-2011 - [facility] 06-27-2011 Group ([id number]) Follow Up Appt 2 months Follow Up Appt 2 months 06-27-2011 - [facility] 06-27-2011 Group ([id number]) EKG (In office) EKG (In office) 06-27-2011 - [facility] 06-27-2011 Group ([id number]) Follow Up Appt 2 months Follow Up Appt 2 months 06-27-2011 - [facility] 06-27-2011 Group ([id number]) Follow Up Appt 4 months Follow Up Appt 4 months 06-10-2011 - [facility] 06-10-2011 Group ([id number]) Follow Up Appt 4 months Follow Up Appt 4 months 06-10-2011 - [facility] 06-10-2011 Group ([id number]) Patient education no information [facility] Group ([id number]) no information [facility] ([id number]) Immunizations Vaccine Notes Status Date Location Influenza Vaccine, influenza virus (completed) 01-06-2013 - [facility] Split-Non Spec vaccine, unspecified 01-06-2013 (4419 5) formulation Influenza Seasonal - influenza, high dose (completed) 01-14-2019 - [facility] High Dose - Age 65+ seasonal, 01-14-2019 ([id number]) preservative-free Influenza Seasonal - influenza, high dose (completed) 01-26-2018 - [facility] High Dose - Age 65+ seasonal, 01-26-2018 ([id number]) preservative-free Influenza Seasonal - influenza, high dose (completed) 01-19-2017 - [facility] High Dose - Age 65+ seasonal, 01-19-2017 ([id number]) preservative-free Influenza Seasonal - influenza, high dose (completed) 01-18-2016 - [facility] High Dose - Age 65+ seasonal, 01-18-2016 ([id number]) preservative-free Influenza Seasonal - influenza, high dose (completed) 01-24-2015 - [facility] High Dose - Age 65+ seasonal, 01-24-2015 ([id number]) preservative-free Novel Influenza H1N1, novel (completed) 01-31-2009 - [facility] preservative free [id number], 01-31-2009 ([id number]) preservative-free, injectable Pneumococcal-13 Vac pneumococcal (completed) 06-07-2014 - [facility] Conjugate conjugate vaccine, 13 06-07-2014 ([id number] ) valent Tdap (Age 7+) tetanus toxoid, (completed) 09-16-2007 - [facility] linic reduced diphtheria 09-16-2007 ([id number]) toxoid, and acellular pertussis vaccine, adsorbed Payers Payer Name Policy Number Location MEDICARE [id number] [facility] (44 195) MEDICARE PART B [id number] [facility] Found [place]ion ([place]) ([id number]) MUTUAL [facility] [id number] [facility] (44 195) The following information is from the original human readable contentNo Payer Records Found Social History Type Social History Date Location Description History of tobacco use Current smoker 08-12-2007 [facility] ([id number]) History SDOH Social 2 12-17-2018 - [facility] Members[facility] 09-09-2019 ([id number]) History of tobacco use Cigar Smoker 08-12-2007 [facility] ([id number]) Tobacco use and exposure Never used 10-27-2019 - [facility] 10-27-2019 ([id number]) Alcohol intake Current non-drinker of 10-27-2019 [facility] alcohol (finding) 10-27-2019 ([id number]) History SDOH Alcohol 1 09-09-2019 - [facility] linic Frequency 09-09-2019 ([id number]) History SDOH Social 98 09-09-2019 - [facility] [employer] Phone 09-09-2019 ([id number]) Tobacco smoking status Former smoker 10-27-2019 - [facility] NHIS 10-27-2019 ([id number]) History SDOH Social 3 12-17-2018 - [facility] 12-17-2018 ([id number]) History SDOH Physical 0 09-09-2019 - [facility] Activity DPW 09-09-2019 ([id number]) History SDOH Stress 5 09-09-2019 - [facility] 09-09-2019 ([id number]) History SDOH Education 12 09-09-2019 - [facility] 09-09-2019 ([id number]) Sex Assigned At Not on file [facility] ([id number]) Exposure to SARS-CoV-2 Not sure [facility] (event) ([id number]) The following information is from the original [...] Each five times 07-19-2019 daily. Use with EndorphMeuch 09-16-2013 Glucometer as directed Goals Patient Goal [...] - 11/21/2019 3:30 PM EDT TELEPHONIC APPOINTMENT [place] law requires the collaborative practice agreement to [...] pharmacotherapy management appointment for diabetes. At 09/15 WOUND NURSE?appt,?insulin NPH dose decreased pt was consulted to pharmacy due to increased hypoglycemia.?At last WOUND NURSE visit gabapentin was initiated and empiric treatment for UTI was started with nitrofurantoin mo nohydrate. At PharmD visit on , insulin lispro dose was decreased and patient was recommended to pursue basal/bolus insulin pens through [employer] system patient assistance. At last PCP appt, no [...] Automatic implantable cardiac defibrillator in situ ? Pteit's esophagus with esophagitis 03/01/2015 ? Benign neoplasm of colon ? Chronic diarrhea 09/16/2011 ? Coronary atherosclerosis of unspecified type of vessel, [place] or graft s/p [place] in 1985 ? Diverticulosis of colon (without [...] disease, with long-term current use of insulin ([facility]) 06/15/2017 ? Unspecified essential hypertension ALLERGIES [...] G47.33 327.23 - fax compliance download to [phone] 1 Device 0 ? flash glucose sensor [...] once daily. 0 ? blood sugar diagnostic ([employer] BLOOD GLUCOSE SYSTEM) test strip Use as [...] (ONE TOUCH ULTRASOFT LANCETS) lancets Use with [facility] Glucometer as directed 100 Each 3 ? [...] disease, with long-term current use of insulin ([facility]) - ICD9: 250.40, 585.3, V58.67, ICD10: [...] approval of new basal/bolus insulin pens from [facility].?Renal function and LFTs appropriate for continued use. [place] law requires the collaborative practice agreement to [...] for switching to Basaglar and Humalog through [employer] system patient assistance, will replace current insulins. ? ACEi/ARB for renal protection:?yes, Scr and K+ ok to continue ? HbA1c: 01/14/2020 Patient is not scheduled to see PCP. Patient to follow up with PharmD, pt to call me by end of week with update on if approved by PAP. Patient verbalized understanding of instructions. Denita Thorpe, LisaD, BCACP Primary Care Clinical Pharmacist [facility] documented in this encounter Assessments Diagnosis Type [...] BE BASED ON THE PRIMARY CLINICAL RECORDS. [employer] provides no warranty or guarantee of the accuracy or completeness of information in this document. UNRECOGNIZED CONTENT PROVIDED BELOW FOR UNRECOGNIZED SECTION Source Comments In the event this information is protected by the Federal Confidentiality of Alcohol and Drug Abuse Patient Records regulations: The Federal rules restrict any use of the information to criminally investigate or prosecute any alcohol or drug abuse patient.[facility] the event this information is protected by the Federal Confidentiality of Alcohol and Drug Abuse Patient Records regulations: The Federal rules restrict any use of the information to criminally investigate or prosecute any alcohol or drug abuse patient.[facility] Center[facility] the event this information is protected by the Federal Confidentiality of Alcohol and Drug Abuse Patient Records regulations: The Federal rules restrict any use of the information to criminally investigate or prosecute any alcohol or drug abuse patient.[facility] Center[facility] the event this information is protected by the Federal Confidentiality of Alcohol and Drug Abuse Patient Records regulations: The Federal rules restrict any use of the information to criminally investigate or prosecute any alcohol or drug abuse patient.[facility] Center[facility] the event this information is protected by the Federal Confidentiality of Alcohol and Drug Abuse Patient Records regulations: The Federal rules restrict any use of the information to criminally investigate or prosecute any alcohol or drug abuse patient.[facility] Center[facility] the event this information is protected by the Federal Confidentiality of Alcohol and Drug Abuse Patient Records regulations: The Federal rules restrict any use of the information to criminally investigate or prosecute any alcohol or drug abuse patient.[facility] Center[facility] the event this information is protected by the Federal Confidentiality of Alcohol and Drug Abuse Patient Records regulations: The Federal rules restrict any use of the information to criminally investigate or prosecute any alcohol or drug abuse patient.[facility] Center[facility] the event this information is protected by the Federal Confidentiality of Alcohol and Drug Abuse Patient Records regulations: The Federal rules restrict any use of the information to criminally investigate or prosecute any alcohol or drug abuse patient.[facility] Center[facility] the event this information is protected by the Federal Confidentiality of Alcohol and Drug Abuse Patient Records regulations: The Federal rules restrict any use of the information to criminally investigate or prosecute any alcohol or drug abuse patient.[facility] Center[facility] the event this information is protected by the Federal Confidentiality of Alcohol and Drug Abuse Patient Records regulations: The Federal rules restrict any use of the information to criminally investigate or prosecute any alcohol or drug abuse patient.[facility] CenterIn the event this information is protected by the Federal Confidentiality of Alcohol and Drug Abuse Patient Records regulations: The Federal rules restrict any use of the information to criminally investigate or prosecute any alcohol or drug abuse patient.[facility] Center[facility] the event this information is protected by the Federal Confidentiality of Alcohol and Drug Abuse Patient Records regulations: The Federal rules restrict any use of the information to criminally investigate or prosecute any alcohol or drug abuse patient.[facility] CenterIn the event this information is protected by the Federal Confidentiality of Alcohol and Drug Abuse Patient Records regulations: The Federal rules restrict any use of the information to criminally investigate or prosecute any alcohol or drug abuse patient.[facility] CenterIn the event this information is protected by the Federal Confidentiality of Alcohol and Drug Abuse Patient Records regulations: The Federal rules restrict any use of the information to criminally investigate or prosecute any alcohol or drug abuse patient.[facility] Center[facility] the event this information is protected by the Federal Confidentiality of Alcohol and Drug Abuse Patient Records regulations: The Federal rules restrict any use of the information to criminally investigate or prosecute any alcohol or drug abuse patient.[facility] UNRECOGNIZED CONTENT PROVIDED BELOW FOR UNRECOGNIZED SECTION No Status Records FoundNo Status Records Found UNRECOGNIZED CONTENT PROVIDED BELOW FOR UNRECOGNIZED SECTION INFORMATION SOURCE DATE CREATED AUTHOR AUTHOR'S ORGANIZATIO N 09/22/2017 [facility] ([place]) DATE CREATED AUTHOR AUTHOR'S ORGANIZATIO N 01/07/2020 [facility] UNRECOGNIZED CONTENT PROVIDED BELOW FOR [...] 11/28/2019 4:36 PM EDTCalled and [facility] confirm that Basaglar is ready for delivery. Will arrive tomorrow. Called and spoke with pt's , Ila to ensure someone over the age of 18 is home to sign for package. She verbalized understanding. Denita Thorpe PharmD, BCACP Primary Care Clinical Pharmacist [facility] Telephone Encounter - Kemi (Pharmacist)Denita - 11/23/2019 1:25 PM EDTOrders for both Humalog and Basaglar (to replace Humulin) were sent to [facility] on 10/23. Attempted to call [facility] to clarify, unable to reach installation service representative. Was able to leave voicemail on [...] Thorpe PharmD, BCACP Primary Care Clinical Pharmacist [facility] Telephone Encounter - Ronen Avery LPN - 11/23/2019 10:35 AM EDTPt calls to state he would like to let Denita know that he received his Humalog quick pens but has notreceived his Humulin quick pens yet. Ronen Avery LPN documented in this encounterTelephone Encounter - Emilie (Pharmacist), Gabriela - 12/06/2019 5:22 PM EDT [facility] Referring provider: No ref. provider found Lovely Devi is a 74 year old year old male patient being evaluated today for anticoagulation Telemanagement visit. Patient is currently on the following anticoagulant Warfarin Labs PT INR (no units) Date Value 11/26/2018 Test sent to [facility]. 10/16/2017 1.8 01/16/2017 Test sent to [facility]. INR (POCT) (no units) Date Value [...] Pharmacy Anticoagulation Clinic Pharmacy [facility] Pager: [phone] Description Patient has 3 mg tablets of warfarin. Patient takes in the morning. . Telephone Encounter - Shawn (Nail Maker), Cristina - 12/06/2019 5:13 PM EDT Patient called and left message that stated he received a message re: his INR result and dosing but he couldn't understand what dose to take of his warfarin. Patient can be reached at [phone]. Cristina Escobar CPhT (Programming Equipment Operator) Pharmacy Anticoagulation Clinic Telephone Encounter - Andre (Pharmacist)Lee - 12/06/2019 3:29 PM EDT [facility] Lovely Devi is a 74 year old year old male patient being evaluated today for anticoagulation Telemanagement visit. Patient is currently on the following anticoagulant Warfarin Labs PT INR (no units) Date Value 11/26/2018 Test sent to [facility]. 10/16/2017 1.8 01/16/2017 Test sent to [facility]. INR (POCT) (no units) Date Value [...] information and advised to call PAC at [phone] if any questions or changes to report. Would like to try one more time to reach patient. INR 2 weeks ago was low and leftVM for patient so not sure if he got message. Lee Moss, Pharmacist Clinical Pharmacist, Pharmacy Anticoagulation Clinic Pharmacy Anticoagulation Clinic Pager: [phone] Description Patient has 3 mg tablets of [...] Tasha Chan RN - [facility]08/2019 [facility]- reports this was a delay [...] Thorpe, PharmD, BCACP Primary Care Clinical Pharmacist [facility] Telephone Encounter - Cindi Pichardo RN - [...] Blossom (Pharmacist)Joleen - 12/21/2019 9:15 AM EDT [facility] Referring provider: No ref. provider found Lovely Devi is a 74 year old year old male patient being evaluated today for anticoagulation Telemanagement visit. Patient is currently on the following anticoagulant Warfarin Labs PT INR (no units) Date Value 11/26/2018 Test sent to [facility]. 10/16/2017 1.8 01/16/2017 Test sent to [facility]. INR (POCT) (no units) Date Value [...] of liver or green tea, Ensure, Boost, Brightwood Instant Breakfast, Mulit-Vitamins, and V-8. Plan: ? Advised patient to continue with a higher weekly warfarin dose at this time. ? Next home INR check scheduled on 01/04/2020 ? Patient verbalizes understanding of the plan. JOLEEN CERRATO PHARMACIST Clinical Pharmacist, Pharmacy Anticoagulation Clinic Pharmacy Anticoagulation Clinic Pager: [phone] Description Patient has 3 mg tablets of [...] 01/10. Please advise. Electronically signed by Linwood [facility]lesTem[facility]) JAZZY Carpenter at 12/27/2019 5:53 PM EDT [...] Thorpe, PharmD, BCACP Primary Care Clinical Pharmacist [facility] documented in this encounter UNRECOGNIZED CONTENT PROVIDED BELOW FOR UNRECOGNIZED SECTION Reason for Visit Reason Onset Date Comments Medication Update 11/23/2019 Reason Comments Allied Health Visit DM Reason Onset Date Comments Anticoagulation Telephone Fu 12/06/2019 Home INR re sult Reason Onset Date Comments Refill Request 12/07/2019 Reason Onset Date Comments [facility] OT POC 12/08/2019 Reason Onset Date Comments insulin did not arrive 11/30/2019 Reason Comments Outside Lab Results CBC, BMP Reason Onset Date Comments Anticoagulation Telephone Fu 12/20/2019 Home INR re sult Reason Onset Date Comments Patient Question 12/27/2019 Reason Onset Date Comments Refill Request 01/06/2020
--- OUTSIDE RECORDS SUMMARY | 2020-01-15 09:59 | XMS RPT_ITS | CCD ---
:1945 External Reference #:[id number] [facility] Care Team Providers Name Role [...] Onset ceftriaxone rash Severe, Severe 06-19-2016 - [facility] ([id number]) cefTRIAXone Other: See Comments 06-20-2014 - Ashlee richardson [facility] ([id number]) cow milk diarrhea (lactose Moderate, 06-19-2016 - [facility] art Translations: [ intolerant) Moderate Group (60673 ) MILK] Morphine Hallucinations Severe, Critical 02-28-2005 - [facility] ([id number]) Medications Medication Name Sig Date Prescriber Location Amiodarone amiodarone (PACERONE) 11-26-2017 Morgan Valdez [facility] 200 mg tablet Take 1 (32225) tablet by mouth once daily. 0 11/26/2017 Active Comment: Take 1 tablet by mouth once daily. amLODIPine AMLODIPINE BESYLATE 5 MG TABS One 09-06-2013 [facility] (13759) tablet by mouth daily AMLODIPINE BESYLATE [id number] Melany Khanna PA-C AMLODIPINE BESYLATE 10 MG 09-06-2013 Melany Restrepo RN [facility] TABS One tablet by mouth (56590) daily AMLODIPINE BESYLATE [id number] Melany Khanna PA-C aspirin Aspirin 81 mg ORAL Tab Take 06-10-2011 Morgan Veeselina [facility] 1 tablet by mouth once (4469 1) daily. Take with food. 30 tablet 11 07/07/2011 Active ASPIRIN 81 MG TABS One tablet by mouth twice 06-10-2011 [facility] (04456) daily ASPIRIN [id number] Rahul Anaya MD ASPIRIN 81 MG TABS One tablet by mouth daily 06-10-2011 [facility] (74109) ASPIRIN [id number] Kath Esquivel MD ASPIRIN 81 MG TABS One tablet by mouth twice 06-10-2011 [facility] (07295) daily ASPIRIN [id number] Rahul Anaya MD ASPIRIN EC 81 MG TBEC One tablet by mouth 06-10-2011 [facility] (27758) daily ASPIRIN [id number] Jessica Odom RN ASPIRIN 325 MG TABS One tablet by mouth 07-16-2010 [facility] (23242) daily ASPIRIN [id number] Tracee Beard Comment: Take 1 tablet by mouth once daily. Take with food. [facility]-2018 Morgan Rosado [facility] Indications: Class 2 (99751) severe obesity due to excess calories with serious comorbidity and body mass index (BMI) of 38.0 to 38.9 in adult ([facility]) , Facet arthritis of lumbar region 1 Device once daily as needed. size large 1 Each 0 01/31/2018 Active [facility] Indications: Class 01-31-2018 Morgan Valdez [facility] (36235) 2 severe obesity due to excess calories with serious comorbidity and body mass index (BMI) of 38.0 to 38.9 in adult ([facility]) , Facet arthritis of lumbar region 1 Device once daily as needed. size large 1 Each 0 01/31/2018 Active Back Brace misc Indications: Class 01-31-2018 Morgan A [facility] (56110) 2 severe obesity due to excess calories with serious comorbidity and body mass index (BMI) of 38.0 to 38.9 in adult (HCC) , Facet arthritis of lumbar region 1 Device once daily as needed. size large 1 Each 0 01/31/2018 Active Back Brace misc Indications: Class 01-31-2018 [facility] (76612) 2 severe obesity due to excess calories with serious comorbidity and body mass index (BMI) of 38.0 to 38.9 in adult (HCC) , Facet arthritis of lumbar region 1 Device once daily as needed. size large 1 Each 0 01/31/2018 Active Back Brace misc Indications: Class 01-31-2018 [facility] (41551) 2 severe obesity due to excess calories with serious comorbidity and body mass index (BMI) of 38.0 to 38.9 in adult (HCC) , Facet arthritis of lumbar region 1 Device once daily as needed. size large 1 Each 0 01/31/2018 Active Back Brace misc Indications: Class 01-31-2018 [facility] (01722) 2 severe obesity due to excess calories with serious comorbidity and body mass index (BMI) of 38.0 to 38.9 in adult (HCC) , Facet arthritis of lumbar region 1 Device once daily as needed. size large 1 Each 0 01/31/2018 Active Back Brace misc Indications: Class 01-31-2018 [facility] (95054) 2 severe obesity due to excess calories with serious comorbidity and body mass index (BMI) of 38.0 to 38.9 in adult (HCC) , Facet arthritis of lumbar region 1 Device once daily as needed. size large 1 Each 0 01/31/2018 Active Back Brace misc Indications: Class 01-31-2018 [facility] (34862) 2 severe obesity due to excess calories with serious comorbidity and body mass index (BMI) of 38.0 to 38.9 in adult (HCC) , Facet arthritis of lumbar region 1 Device once daily as needed. size large 1 Each 0 01/31/2018 Active Back Brace misc Indications: Class 01-31-2018 Morgan A Cebul [facility] (20990) 2 severe obesity due to excess calories with serious comorbidity and body mass index (BMI) of 38.0 to 38.9 in adult (HCC) , Facet arthritis of lumbar region 1 Device once daily as needed. size large 1 Each 0 01/31/2018 Active Back Brace misc Indications: Class 01-31-2018 Morgan A bul [facility] (42133) 2 severe obesity due to excess calories with serious comorbidity and body mass index (BMI) of 38.0 to 38.9 in adult (HCC) , Facet arthritis of lumbar region 1 Device once daily as needed. size large 1 Each 0 01/31/2018 Active Back Brace misc Indications: Class 01-31-2018 Morgan A [facility] (08640) 2 severe obesity due to excess calories with serious comorbidity and body mass index (BMI) of 38.0 to 38.9 in adult (HCC) , Facet arthritis of lumbar region 1 Device once daily as needed. size large 1 Each 0 01/31/2018 Active Back Brace misc Indications: Class 01-31-2018 Morgan A [facility] (76486) 2 severe obesity due to excess calories with serious comorbidity and body mass index (BMI) of 38.0 to 38.9 in adult (HCC) , Facet arthritis of lumbar region 1 Device once daily as needed. size large 1 Each 0 01/31/2018 Active Back Brace misc Indications: Class 01-31-2018 Morgan A [facility] (68955) 2 severe obesity due to excess calories with serious comorbidity and body mass index (BMI) of 38.0 to 38.9 in adult (HCC) , Facet arthritis of lumbar region 1 Device once daily as needed. size large 1 Each 0 01/31/2018 Active Back Brace misc Indications: Class 01-31-2018 Morgan A [facility] (46362) 2 severe obesity due to excess calories with serious comorbidity and body mass index (BMI) of 38.0 to 38.9 in adult (HCC) , Facet arthritis of lumbar region 1 Device once daily as needed. size large 1 Each 0 01/31/2018 Active Back Brace misc Indications: Class 01-31-2018 Morgan A [facility] (25510) 2 severe obesity due to excess calories with serious comorbidity and body mass index (BMI) of 38.0 to 38.9 in adult (HCC) , Facet arthritis of lumbar region 1 Device once daily as needed. size large 1 Each 0 01/31/2018 Active Back Brace misc Indications: Class 01-31-2018 Morgan Mooney [facility] (92010) 2 severe obesity due to excess calories with serious comorbidity and body mass index (BMI) of 38.0 to 38.9 in adult (HCC) , Facet arthritis of lumbar region 1 Device once daily as needed. size large 1 Each 0 01/31/2018 Active Back Brace misc Indications: Class 01-31-2018 Morgan Mooney [facility] (94682) 2 severe obesity due to excess calories with serious comorbidity and body mass index (BMI) of 38.0 to 38.9 in adult (HCC) , Facet arthritis of lumbar region 1 Device once daily as needed. size large 1 Each 0 01/31/2018 Active Comment: 1 Device once daily as neede d. size large BIPAP BIPAP Initiate BiPAP @ 24- Nik E Mo [facility] cm of water with (75043) humidification. Mask (per patient preference), chin strap, filters, tubing / heated tubing, heated humidity and lifetime supplies. Dx. JESSICA G47.33 327.23 - fax compliance download to [phone] 1 Device 0 09/15/2018 Active BIPAP Initiate BiPAP @ 24/18 cm of 09-15-2018 Nik E Angela [facility] (53425) water with humidification. Mask (per patient preference), chin strap, filters, tubing / heated tubing, heated humidity and lifetime supplies. Dx. JESSICA G47.33 327.23 - fax compliance download to [phone] 1 Device 0 09/15/2018 Active BIPAP Initiate BiPAP @ 24/18 cm of 09-15-2018 Nik E Angela [facility] (57524) water with humidification. Mask (per patient preference), chin strap, filters, tubing / heated tubing, heated humidity and lifetime supplies. Dx. JESSICA G47.33 327.23 - fax compliance download to [phone] 1 Device 0 09/15/2018 Active BIPAP Initiate BiPAP @ 24/18 cm of 09-15-[address] [facility] (48956) water with humidification. Mask (per patient preference), chin strap, filters, tubing / heated tubing, heated humidity and lifetime supplies. Dx. JESSICA G47.33 327.23 - fax compliance download to [phone] 1 Device 0 09/15/2018 Active BIPAP Initiate BiPAP @ 24/18 cm of 09-15-[address] [facility] (72580) water with humidification. Mask (per patient preference), chin strap, filters, tubing / heated tubing, heated humidity and lifetime supplies. Dx. JESSICA G47.33 327.23 - fax compliance download to [phone] 1 Device 0 09/15/2018 Active BIPAP Initiate BiPAP @ 24/18 cm of 09-15-[address] [facility] (80558) water with humidification. Mask (per patient preference), chin strap, filters, tubing / heated tubing, heated humidity and lifetime supplies. Dx. JESSICA G47.33 327.23 - fax compliance download to [phone] 1 Device 0 09/15/2018 Active BIPAP Initiate BiPAP @ 24/18 cm of 09-15-[address] [facility] (82265) water with humidification. Mask (per patient preference), chin strap, filters, tubing / heated tubing, heated humidity and lifetime supplies. Dx. JESSICA G47.33 327.23 - fax compliance download to [phone] 1 Device 0 09/15/2018 Active BIPAP Initiate BiPAP @ 24/18 cm of 09-15-[address] [facility] (92406) water with humidification. Mask (per patient preference), chin strap, filters, tubing / heated tubing, heated humidity and lifetime supplies. Dx. JESSICA G47.33 327.23 - fax compliance download to [phone] 1 Device 0 09/15/2018 Active BIPAP Initiate BiPAP @ 24/18 cm of 09-15-[address] [facility] (41703) water with humidification. Mask (per patient preference), chin strap, filters, tubing / heated tubing, heated humidity and lifetime supplies. Dx. JESSICA G47.33 327.23 - fax compliance download to [phone] 1 Device 0 09/15/2018 Active BIPAP Initiate BiPAP @ 24/18 cm of 09-15-[address] [facility] (40942) water with humidification. Mask (per patient preference), chin strap, filters, tubing / heated tubing, heated humidity and lifetime supplies. Dx. JESSICA G47.33 327.23 - fax compliance download to [phone] 1 Device 0 09/15/2018 Active BIPAP Initiate BiPAP @ 24/18 cm of 09-15-2018 Nik E [facility] (82345) water with humidification. Mask (per patient preference), chin strap, filters, tubing / heated tubing, heated humidity and lifetime supplies. Dx. JESSICA G47.33 327.23 - fax compliance download to [phone] 1 Device 0 09/15/2018 Active BIPAP Initiate BiPAP @ 24/18 cm of 09-15-[address] [facility] (14674) water with humidification. Mask (per patient preference), chin strap, filters, tubing / heated tubing, heated humidity and lifetime supplies. Dx. JESSICA G47.33 327.23 - fax compliance download to [phone] 1 Device 0 09/15/2018 Active BIPAP Initiate BiPAP @ 24/18 cm of 09-15-[address] [facility] (31890) water with humidification. Mask (per patient preference), chin strap, filters, tubing / heated tubing, heated humidity and lifetime supplies. Dx. JESSICA G47.33 327.23 - fax compliance download to [phone] 1 Device 0 09/15/2018 Active BIPAP Initiate BiPAP @ 24/18 cm of 09-15-[address] [facility] (54687) water with humidification. Mask (per patient preference), chin strap, filters, tubing / heated tubing, heated humidity and lifetime supplies. Dx. JESSICA G47.33 327.23 - fax compliance download to [phone] 1 Device 0 09/15/2018 Active BIPAP Initiate BiPAP @ 24/18 cm of 09-15-2018 Nik [facility] (24958) water with humidification. Mask (per patient preference), chin strap, filters, tubing / heated tubing, heated humidity and lifetime supplies. Dx. JESSICA G47.33 327.23 - fax compliance download to [phone] 1 Device 0 09/15/2018 Active BIPAP Initiate BiPAP @ 24/18 cm of 09-15-2018 Nik [facility] (07922) water with humidification. Mask (per patient preference), chin strap, filters, tubing / heated tubing, heated humidity and lifetime supplies. Dx. JESSICA G47.33 327.23 - fax compliance download to [phone] 1 Device 0 09/15/2018 Active BIPAP Initiate BiPAP @ 24/18 cm of 09-15-2018 Nik E [facility] (73733) water with humidification. Mask (per patient preference), chin strap, filters, tubing / heated tubing, heated humidity and lifetime supplies. Dx. JESSICA G47.33 327.23 - fax compliance download to [phone] 1 Device 0 09/15/2018 Active Comment: Initiate BiPAP @ 24/18 cm of water with humidification. Mask (per patient preference), chin strap, alida ters, tubing / heated tubing, heated humidity and lifetime supplies. Dx. O SA G47.33 327.23 - fax compliance download to [phone] carvedilol carvedilol (COREG) 3.125 09-16-2019 Deniz Payne [facility] mg tablet Take 2 tablets (44 691) by mouth twice daily. for one week starting on 06/20/16 then will be taking 6.25 x 2 daily . 0 09/16/2019 Active COREG 6.25 MG TABS One 06-19-2016 [facility] tablet by mouth twice (35460) daily CARVEDILOL [id number] Johan Perry MD COREG 3.125 MG TABS One 12-06-2014 - 02-07-2015 Melissa Marks RN [facility] tablet by mouth twice (58864) daily CARVEDILOL [id number] Johan Perry MD Comment: Take 2 tablets by mouth twic e daily. for one week starting on 06/20/16 then will be taking 6.25 x 2 ajay y . cephalexin CEPHALEXIN 500 MG 07-16-2010 - [facility] TABS One tablet by 06-10-2011 Group (44 691) mouth three times daily CEPHALEXIN [id number] Tracee Beard Cholecalciferol Cholecalciferol, 09-16-2019 [facility], [facility] mcg (54431) (2,000 unit) cap Indications: Vitamin D deficiency Take 1 capsule by mouth once daily. 0 09/16/2019 Active Comment: Take 1 capsule by mouth once daily. clopidogrel clopidogrel (PLAVIX) 75 mg 08-29-2019 Morgan Valdez [facility] tablet Indications: (80430) Subsequent non-ST elevation (NSTEMI) myocardial infarction within 4 weeks of initial infarction (HCC) Take 1 tablet by mouth once daily. 90 tablet 3 08/29/2019 Active PLAVIX 75 MG TABS One tablet by mouth daily 03-04-2012 [facility] (08003) CLOPIDOGREL BISULFATE [id number] Rahul Anaya MD Comment: Take 1 tablet by mouth once daily. colestipol COLESTID 1 GM TABS One 11-24-2011 - 01-01-2017 [facility] tablet by mouth twice (87497 ) daily COLESTIPOL HCL 00782315706 Melany Khanna PA-C COLESTID 1 GM TABS Two 11-24-2011 [facility] tablets by mouth twice Group (44 691) daily COLESTIPOL HCL [id number] Johan Perry MD COLESTID 1 GM TABS One 11-24-2011 [facility] tablet by mouth twice Group (446 91) daily COLESTIPOL HCL 59602737439 Simms Kevan Perry MD COLESTID 1 GM TABS Two 11-24-2011 [facility] tablets by mouth twice Group (44 691) daily COLESTIPOL HCL 76682991505 Johan Perry MD COLESTID 1 GM TABS Two 11-24-2011 Vicki Kirkpatrick [facility] tablets by mouth twice Group (44 771) daily COLESTIPOL HCL 73143889102 Johan Perry MD COLESTID 1 GM TABS One 11-24-2011 Riana Francis RN [facility] tablet by mouth twice Group (446 91) daily COLESTIPOL HCL 33633083565 Johan Perry MD COLESTID 1 GM TABS One 11-24-2011 - [facility] tablet by mouth twice 06-19-2016 Group (446 91) daily COLESTIPOL HCL 70583837731 Johan Perry MD COLESTID 1 GM TABS One 11-24-2011 Melissa Marks RN [facility] by mouth twice Group (446 91) daily COLESTIPOL HCL 60815295383 Johan Perry MD COLESTID 1 GM TABS One 11-24-2011 Riana Francis RN [facility] tablet by mouth twice Group (446 91) daily COLESTIPOL HCL 45280807562 Johan Perry MD COLESTID 1 GM TABS One 11-24-2011 - [facility] by mouth twice 06-19-2016 Group (446 91) daily COLESTIPOL HCL 55679168462 Johan Perry MD COLESTID 1 GM TABS Two 11-24-2011 Melissa Marks RN [facility] tablets by mouth twice Group (44 151) daily COLESTIPOL HCL 23472159857 Johan Perry MD COLESTID 1 GM TABS Two 11-24-2011 Vicki Kirkpatrick [facility] tablets by mouth twice Group (44 791) daily COLESTIPOL HCL 39812011769 Johan Perry MD COLESTID 1 GM TABS One 11-24-2011 Riana Francis RN [facility] tablet by mouth twice Group (447 91) daily COLESTIPOL HCL 82506069655 Johan Kevan Perry MD COLESTID 1 GM TABS One 11-24-2011 Melissa Jesica Selina RN [facility] tablet by mouth twice Group (446 91) daily COLESTIPOL HCL 24009384322 Johan Kevan Perry MD COLESTID 1 GM TABS One 11-24-2011 - [facility] tablet by mouth twice 06-19-2016 Group (446 91) daily COLESTIPOL HCL [id number] Johan Kevan Perry MD COLESTID 1 GM TABS Two 11-24-2011 Melissa Marks RN [facility] tablets by mouth twice Group (44 691) daily COLESTIPOL HCL [id number] Simms Kevan Perry MD COLESTID 1 GM TABS Two 11-24-2011 Vicki Kirkpatrick RN [facility] tablets by mouth twice Group (44 691) daily COLESTIPOL HCL 37728135878 Johan Perry MD COLESTID 1 GM TABS Two 11-24-2011 Melissa Marks RN [facility] tablets by mouth twice Group (44 691) daily COLESTIPOL HCL 77596227092 Johan Perry MD COLESTID 1 GM TABS Two 11-24-2011 Vicki Kirkpatrick RN [facility] tablets by mouth twice Group (44 691) daily COLESTIPOL HCL 88831124435 Simms Kevan Perry MD COLESTID 1 GM TABS One 11-24-2011 - [facility] by mouth twice 06-19-2016 Group (446 91) daily COLESTIPOL HCL 04024859404 Johan Kevan Perry MD COLESTID 1 GM TABS One 11-24-2011 Melissa Marks RN [facility] tablet by mouth twice Group (446 91) daily COLESTIPOL HCL 88347917242 Simms Kevan Perry MD COLESTID 1 GM TABS One 11-24-2011 Riana Francis RN [facility] tablet by mouth twice Group (446 91) daily COLESTIPOL HCL [id number] Simms Kevan Perry MD COLESTID 1 GM TABS Two 11-24-2011 Vicki Kirkpatrick RN [facility] tablets by mouth twice Group (44 621) daily COLESTIPOL HCL 14536939573 Johan S MD [place] COLESTID 1 GM TABS One 11-24-2011 Melissa Marks RN [facility] tablet by mouth twice Group (442 91) daily COLESTIPOL HCL 51663042025 Johan Kevan Perry MD COLESTID 1 GM TABS Two 11-24-2011 Melissa Marks RN [facility] tablets by mouth twice Group (44 901) daily COLESTIPOL HCL 28733370927 Johan Perry MD COLESTID 1 GM TABS One 11-24-2011 Riana Francis RN [facility] tablet by mouth twice Group (44 91) daily COLESTIPOL HCL 61656397004 MD ENRICO RogersSTID 1 GM TABS One 11-24-2011 - [facility] by mouth twice 06-19-2016 Group (446 91) daily COLESTIPOL HCL 98398824708 Johan Perry MD COLESTID 1 GM TABS One 11-24-2011 Riana Francis RN [facility] tablet by mouth twice Group (446 91) daily COLESTIPOL HCL [id number] Simms S MD [place] COLESTID 1 GM TABS Two 11-24-2011 Vicki Kirkpatrick RN [facility] tablets by mouth twice Group (44 931) daily COLESTIPOL HCL 87929713992 Simms Kevan Perry MD COLESTID 1 GM TABS One 11-24-2011 Melissa Marks RN [facility] tablet by mouth twice Group (440 91) daily COLESTIPOL HCL 25491455314 Johan Kevan Perry MD COLESTID 1 GM TABS One 11-24-2011 - [facility] tablet by mouth twice 06-19-2016 Group (446 91) daily COLESTIPOL HCL 39568305778 Simms Kevan Perry MD COLESTID 1 GM TABS Two 11-24-2011 Melissa Marks RN [facility] tablets by mouth twice Group (44 691) daily COLESTIPOL HCL [id number] Johan Kevan Perry MD COLESTID 1 GM TABS One 11-24-2011 Melissa Jesica Selina RN [facility] tablet by mouth twice Group (446 91) daily COLESTIPOL HCL 42429462490 Simms Kevan Perry MD COLESTID 1 GM TABS Two 11-24-2011 Vicki Kirkpatrick RN [facility] tablets by mouth twice Group (44 691) daily COLESTIPOL HCL [id number] Simmsselina Perry MD COLESTID 1 GM TABS One 11-24-2011 Riana Mathew Penny RN [facility] tablet by mouth twice Group (446 91) daily COLESTIPOL HCL 12164188791 Johan Perry MD COLESTID 1 GM TABS Two 11-24-2011 Melissa Marks RN [facility] tablets by mouth twice Group (44 851) daily COLESTIPOL HCL [id number] Johan Perry MD COLESTID 1 GM TABS One 11-24-2011 - [facility] tablet by mouth twice 06-19-2016 Group (446 91) daily COLESTIPOL HCL 02998186731 Johan Perry MD COLESTID 1 GM TABS Two 11-24-2011 Melissa Marks RN [facility] tablets by mouth twice Group (44 731) daily COLESTIPOL HCL 76594007172 JohanMD ENRICO SuhSTID 1 GM TABS One 11-24-2011 - [facility] tablet by mouth twice 06-19-2016 Group (446 91) daily COLESTIPOL HCL [id number] Johan Perry MD COLESTID 1 GM TABS One 11-24-2011 Riana Francis RN [facility] tablet by mouth twice Group (446 91) daily COLESTIPOL HCL [id number] Johan Perry MD COLESTID 1 GM TABS Two 11-24-2011 Vicki Kirkpatrick RN [facility] tablets by mouth twice Group (44 691) daily COLESTIPOL HCL 20396324445 Johan Perry MD COLESTID 1 GM TABS One 11-24-2011 Melissa Marks RN [facility] tablet by mouth twice Group (446 91) daily COLESTIPOL HCL 76390848200 Johan Perry MD COLESTID 1 GM TABS Two 11-24-2011 Vicki Kirkpatrick RN [facility] tablets by mouth twice Group (44 691) daily COLESTIPOL HCL 49562235865 Johan Perry MD COLESTID 1 GM TABS Two 11-24-2011 Melissa Marks RN [facility] tablets by mouth twice Group (44 691) daily COLESTIPOL HCL [id number] Johan Perry MD COLESTID 1 GM TABS One 11-24-2011 - [facility] tablet by mouth twice 06-19-2016 Group (446 91) daily COLESTIPOL HCL 83682548963 Johan Perry MD COLESTID 1 GM TABS One 11-24-2011 Melissa Marks RN [facility] tablet by mouth twice Group (446 91) daily COLESTIPOL HCL [id number] Johan Perry MD COLESTID 1 GM TABS One 11-24-2011 Riana Francis RN [facility] tablet by mouth twice Group (446 91) daily COLESTIPOL HCL 94287866482 Johan Perry MD Comment: Take 1 g by mouth twice ajay y. ezetimibe ZETIA 10 MG TABS One 07-16-2010 - [facility] tablet by mouth daily 08-26-2011 Group (31784) EZETIMIBE [id number] Rahul Anaya MD fenofibrate fenofibrate 08-10-2015 [facility] nanocrystallized (TRICOR) Gr oup (49797) 145 mg tablet Take 1 tablet by mouth once daily. 0 08/28/2015 Active Comment: Take 1 tablet by mouth once daily. flash glucose sensor flash glucose sensor 08-09-2018 [facility] (FREESTYLE ANITRA 14 (FREESTYLE ANITRA 14 ( 71082) DAY SENSOR) kit DAY SENSOR) kit Indications: Type 2 diabetes mellitus with st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, with long-term current use of insulin (HCC) 1 Each four times daily. 1 Kit 08/09/2018 Active flash glucose sensor (FREESTYLE 08-09-2018 [facility] (28328) ANITRA 14 DAY SENSOR) kit Indications: Type 2 diabetes mellitus with st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, with long-term current use of insulin (HCC) 1 Each four times daily. 1 Kit 08/09/2018 Active flash glucose sensor (FREESTYLE 08-09-2018 [facility] (18121) ANITRA 14 DAY SENSOR) kit Indications: Type 2 diabetes mellitus with st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, with long-term current use of insulin (HCC) 1 Each four times daily. 1 Kit 08/09/2018 Active flash glucose sensor (FREESTYLE 08-09-2018 [facility] (49780) ANITRA 14 DAY SENSOR) kit Indications: Type 2 diabetes mellitus with st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, with long-term current use of insulin (HCC) 1 Each four times daily. 1 Kit 08/09/2018 Active flash glucose sensor (FREESTYLE 08-09-2018 [facility] (41224) ANITRA 14 DAY SENSOR) kit Indications: Type 2 diabetes mellitus with st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, with long-term current use of insulin (HCC) 1 Each four times daily. 1 Kit 08/09/2018 Active flash glucose sensor (FREESTYLE 05-13-2019 Morgan A [facility] (72706) ANITRA 14 DAY SENSOR) kit Indications: Type 2 diabetes mellitus with st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, with long-term current use of insulin (HCC) 1 Each four times daily. 1 Kit 08/09/2018 Active flash glucose sensor (FREESTYLE 08-09-2018 Morgan A [facility] ([id number]) ANITRA 14 DAY SENSOR) kit Indications: Type 2 diabetes mellitus with st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, with long-term current use of insulin (HCC) 1 Each four times daily. 1 Kit 08/09/2018 Active flash glucose sensor (FREESTYLE 08-09-2018 Morgan [facility] ([id number]) ANITRA 14 DAY SENSOR) kit Indications: Type 2 diabetes mellitus with st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, with long-term current use of insulin (HCC) 1 Each four times daily. 1 Kit 08/09/2018 Active flash glucose sensor (FREESTYLE 08-09-2018 Morgan [facility] (76731) ANITRA 14 DAY SENSOR) kit Indications: Type 2 diabetes mellitus with st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, with long-term current use of insulin (HCC) 1 Each four times daily. 1 Kit 08/09/2018 Active flash glucose sensor (FREESTYLE 08-09-2018 Morgan [facility] ([id number]) ANITRA 14 DAY SENSOR) kit Indications: Type 2 diabetes mellitus with st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, with long-term current use of insulin (HCC) 1 Each four times daily. 1 Kit 08/09/2018 Active flash glucose sensor (FREESTYLE 08-09-2018 Morgan A [facility] ([id number]) ANITRA 14 DAY SENSOR) kit Indications: Type 2 diabetes mellitus with st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, with long-term current use of insulin (HCC) 1 Each four times daily. 1 Kit 08/09/2018 Active flash glucose sensor (FREESTYLE 08-09-2018 Morgan A [facility] (14838) ANITRA 14 DAY SENSOR) kit Indications: Type 2 diabetes mellitus with st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, with long-term current use of insulin (HCC) 1 Each four times daily. 1 Kit 08/09/2018 Active flash glucose sensor (FREESTYLE 08-09-2018 [facility] (67970) ANITRA 14 DAY SENSOR) kit Indications: Type 2 diabetes mellitus with st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, with long-term current use of insulin (HCC) 1 Each four times daily. 1 Kit 08/09/2018 Active flash glucose sensor (FREESTYLE 08-09-2018 Morgan Mooney [facility] (53356) ANITRA 14 DAY SENSOR) kit Indications: Type 2 diabetes mellitus with st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, with long-term current use of insulin (HCC) 1 Each four times daily. 1 Kit 08/09/2018 Active flash glucose sensor (FREESTYLE 08-09-2018 [facility] (24105) ANITRA 14 DAY SENSOR) kit Indications: Type 2 diabetes mellitus with st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, with long-term current use of insulin ([facility]) 1 Each four times daily. 1 Kit 08/09/2018 Active flash glucose sensor (FREESTYLE 08-09-2018 [facility] (97360) ANITRA 14 DAY SENSOR) kit Indications: Type 2 diabetes mellitus with st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, with long-term current use of insulin ([facility]) 1 Each four times daily. 1 Kit 08/09/2018 Active flash glucose sensor (FREESTYLE 08-09-2018 [facility] (69600) ANITRA 14 DAY SENSOR) kit Indications: Type 2 diabetes mellitus with st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, with long-term current use of insulin ([facility]) 1 Each four times daily. 1 Kit 08/09/2018 Active Comment: 1 Each four times daily. furosemide furosemide (LASIX) 40 mg 04-19-2019 [facility] tablet Indications: Acute (4 4691) on chronic systolic congestive heart failure (HCC) Take 1 tablet by mouth twice daily. 60 tablet 04/19/2019 Active LASIX 40 MG TABS One tablet by 03-14-2014 [facility] (38348) mouth twice daily FUROSEMIDE [id number] Vicki Kirkpatrick RN LASIX 40 MG TABS One tablet by 03-14-2014 [facility] (75113) mouth daily FUROSEMIDE [id number] Johan Perry MD LASIX 40 MG TABS One tablet by 03-08-2013 - 09-06-2013 [facility] (95556) mouth daily FUROSEMIDE [id number] Johan Perry MD Comment: Take 1 tablet by mouth twice daily. gabapentin gabapentin (NEURONTIN) 10-27-2019 - Morgan Mooney [facility] 300 mg capsule 02-05-2020 Group (57245) Indications: Type 2 diabetes mellitus with diabetic neuropathy, with long-term current use of insulin (HCC) Take 3 capsules by mouth three times daily for 30 days. 270 capsule 0 01/06/2020 02/05/2020 Active GABAPENTIN 100 MG CAPS 6 tablets by mouth 09-06-2013 [facility] (38729) three times a day GABAPENTIN [id number] Johan Perry MD GABAPENTIN 100 MG CAPS One tablet by mouth 09-06-2013 [facility] (45699) three times daily GABAPENTIN [id number] Melany Khanna PA-C GABAPENTIN 100 MG CAPS One tablet by mouth 09-06-2013 [facility] (78880) daily GABAPENTIN [id number] Melissa Marks RN GABAPENTIN 600 MG TABS One tablet by mouth 09-06-2013 [facility] (37089) three times daily GABAPENTIN [id number] Johan Perry MD Comment: Take 3 capsules by mouth thr ee times daily for 30 days. hydroCHLOROthiazide HYDROCHLOROTHIAZIDE 12.5 MG 10-09-2011 - [facility] TABS One tablet by mouth 12-11-2014 [facility] (45963) daily- STOP replaced by Lasix HYDROCHLOROTHIAZIDE [id number] Melissa Marks RN HYDROCHLOROTHIAZIDE 25 MG TABS One 09-13-2010 - 06-10-2011 [facility] tablet by mouth daily (75856) HYDROCHLOROTHIAZIDE [id number] Tracee Beard insulin glargine insulin glargine 01-09-2020 Morgan Mooney [facility] (BASAGLAR KWIKPEN U-100 Grou p (13812) INSULIN) 100 unit/mL (3 mL) Inject 36 Units subcutaneously every 12 hours. 0 01/09/2020 Active LANTUS 100 UNIT/ML SOLN take as 08-26-2011 [facility] (51793) directed INSULIN GLARGINE [id number] Rahul Anaya MD LANTUS 100 UNIT/ML SOLN take as 08-26-2011 [facility] (70210) directed INSULIN GLARGINE [id number] Rahul Anaya MD LANTUS 100 UNIT/ML SOLN take as 08-26-2011 [facility] (87841) directed INSULIN GLARGINE [id number] Rahul Anaya MD LANTUS 100 UNIT/ML SOLN take as 08-26-2011 [facility] (70771) directed INSULIN GLARGINE [id number] Rahul Anaya MD LANTUS 100 UNIT/ML SOLN take as 08-26-2011 [facility] (02920) directed INSULIN GLARGINE [id number] Rahul Anaya MD LANTUS 100 UNIT/ML SOLN take as 08-26-2011 [facility] (40251) directed INSULIN GLARGINE [id number] Rahul Anaya MD LANTUS 100 UNIT/ML SOLN take as 08-26-2011 [facility] (78950) directed INSULIN GLARGINE [id number] Rahul Anaya MD LANTUS 100 UNIT/ML SOLN take as 08-26-2011 [facility] (00360) directed INSULIN GLARGINE [id number] Rahul Anaya MD LANTUS 100 UNIT/ML SOLN take as 08-26-2011 [facility] (45407) directed INSULIN GLARGINE [id number] Rahul Anaya MD LANTUS 100 UNIT/ML SOLN take as 08-26-2011 [facility] (62526) directed INSULIN GLARGINE [id number] Rahul Anaya MD LANTUS 100 UNIT/ML SOLN take as 08-26-2011 [facility] (43946) directed INSULIN GLARGINE [id number] Rahul Anaya MD insulin glargine (BASAGLAR KWIKPEN [facility] Provider [facility] (97854) U-100 INSULIN) 100 unit/mL (3 mL) Inject 34 Units subcutaneously every 12 hours. 0 Active insulin glargine (BASAGLAR KWIKPEN [facility] Provider [facility] (59351) U-100 INSULIN) 100 unit/mL (3 mL) Inject 30 Units subcutaneously every 12 hours. 0 Active Comment: Inject 30 Units subcutaneous ly every 12 hours. Inject 34 Units subcutaneous ly every 12 hours. Inject 36 Units subcutaneous ly every 12 hours. insulin lispro insulin lispro (HUMALOG 01-09-2020 [facility] KWIKPEN INSULIN) 100 (75328) unit/mL Inject 21 Units subcutaneously three times daily before meals. Plus sliding scale as directed ( 1 unit for every 50 mg/dL above 150 mg/dL) 0 01/09/2020 Active HUMALOG 100 UNIT/ML SOLN 12-11-[address] [facility] units sq tid before meals (22574 ) INSULIN LISPRO (HUMAN) [id number] Melissa Marks RN HUMALOG 100 UNIT/ML SOLN 12-11-[address] [facility] units sq before meals (56942) INSULIN LISPRO (HUMAN) [id number] Johan Perry MD HUMALOG 100 UNIT/ML SOLN 12-11-[address] [facility] units sq before meals (48041) INSULIN LISPRO (HUMAN) [id number] Johan Perry MD HUMALOG 100 UNIT/ML SOLN 12-11-[address] [facility] units sq before meals (28446) INSULIN LISPRO (HUMAN) [id number] Johan Perry MD HUMALOG 100 UNIT/ML SOLN 12-11-[address] [facility] units sq before meals (73042) INSULIN LISPRO (HUMAN) [id number] Johan Perry MD HUMALOG 100 UNIT/ML SOLN 12-11-[address] [facility] units sq before meals (69520) INSULIN LISPRO (HUMAN) [id number] Johan Perry MD HUMALOG 100 UNIT/ML SOLN 12-11-[address] [facility] units sq before meals (57686) INSULIN LISPRO (HUMAN) [id number] Johan Perry MD HUMALOG 100 UNIT/ML SOLN 12-11-[address] [facility] units sq before meals (80918) INSULIN LISPRO (HUMAN) [id number] Johan Perry MD HUMALOG 100 UNIT/ML SOLN 12-11-[address] [facility] units sq before meals (00487) INSULIN LISPRO (HUMAN) [id number] Johan Perry MD HUMALOG 100 UNIT/ML SOLN 12-11-[address] [facility] units sq before meals (65266) INSULIN LISPRO (HUMAN) [id number] Johan Perry MD HUMALOG 100 UNIT/ML SOLN 12-11-[address] [facility] units sq before meals (58783) INSULIN LISPRO (HUMAN) [id number] Johan Perry MD HUMALOG 100 UNIT/ML SOLN 12-11-[address] [facility] units sq before meals (37219) INSULIN LISPRO (HUMAN) [id number] Johan Perry MD HUMALOG 100 UNIT/ML SOLN 12-11-[address] [facility] units sq before meals (39520) INSULIN LISPRO (HUMAN) [id number] Johan Perry MD HUMALOG 100 UNIT/ML SOLN 12-11-[address] [facility] units sq before meals (70271) INSULIN LISPRO (HUMAN) 35532781207 Johan Perry MD HUMALOG 100 UNIT/ML SOLN 12-11-[address] [facility] units sq before meals (47060) INSULIN LISPRO (HUMAN) [id number] Johan Perry MD HUMALOG 100 UNIT/ML SOLN 12-11-[address] [facility] units sq before meals (79003) INSULIN LISPRO (HUMAN) [id number] Johan Perry MD HUMALOG 100 UNIT/ML SOLN 12-11-[address] [facility] units sq before meals (85081) INSULIN LISPRO (HUMAN) [id number] Johan Perry MD HUMALOG 100 UNIT/ML SOLN 12-11-[address] [facility] units sq before meals (64137) INSULIN LISPRO (HUMAN) [id number] Johan Perry MD HUMALOG 100 UNIT/ML SOLN 12-11-[address] [facility] units sq before meals (31890) INSULIN LISPRO (HUMAN) 60133206261 Johan Perry MD HUMALOG 100 UNIT/ML SOLN 12-11-[address] [facility] units sq before meals (62464) INSULIN LISPRO (HUMAN) [id number] Johan Perry MD HUMALOG SOLN Take as 07-16-2010 - 08-26-2011 [facility] directed (07376) INSULIN LISPRO (HUMAN) SOLN [id number] Rahul Anaya MD HUMALOG SOLN Take as 07-16-2010 [facility] directed INSULIN (446 91) LISPRO (HUMAN) SOLN [id number] Tracee Beard HUMALOG SOLN Take as 07-16-2010 [facility] directed INSULIN (446 91) LISPRO (HUMAN) SOLN [id number] Tracee Beard HUMALOG SOLN Take as 07-16-2010 - 08-26-2011 [facility] directed (63977) INSULIN LISPRO (HUMAN) SOLN [id number] Rahul Anaya MD HUMALOG SOLN Take as 07-16-2010 - 08-26-2011 [facility] directed (67003) INSULIN LISPRO (HUMAN) SOLN [id number] Rahul Anaya MD HUMALOG SOLN Take as 07-16-2010 [facility] directed INSULIN (446 91) LISPRO (HUMAN) SOLN [id number] Trcaee Beard HUMALOG SOLN Take as 07-16-2010 [facility] directed INSULIN (446 91) LISPRO (HUMAN) SOLN [id number] Tracee Beard HUMALOG SOLN Take as 07-16-2010 - 08-26-2011 [facility] directed (84259) INSULIN LISPRO (HUMAN) SOLN [id number] Rahul Anaya MD HUMALOG SOLN Take as 07-16-2010 - [facility] (87820) INSULIN LISPRO (HUMAN) SOLN [id number] Rahul Anaya MD HUMALOG SOLN Take as 07-16-2010 [facility] directed INSULIN (446 91) LISPRO (HUMAN) SOLN [id number] Tracee Beard HUMALOG SOLN Take as 07-16-2010 - 08-26-2011 [facility] directed (16767) INSULIN LISPRO (HUMAN) SOLN [id number] Rahul Anaya MD HUMALOG SOLN Take as 07-16-2010 [facility] directed INSULIN (446 91) LISPRO (HUMAN) SOLN [id number] Tracee Beard HUMALOG SOLN Take as 07-16-2010 [facility] directed INSULIN (446 91) LISPRO (HUMAN) SOLN [id number] Tracee Beard HUMALOG SOLN Take as 07-16-2010 - 08-26-2011 [facility] directed (32027) INSULIN LISPRO (HUMAN) SOLN [id number] Rahul Anaya MD HUMALOG SOLN Take as 07-16-2010 [facility] directed INSULIN (446 91) LISPRO (HUMAN) SOLN [id number] Tracee Beard HUMALOG SOLN Take as 07-16-2010 - 08-26-2011 [facility] directed (82488) INSULIN LISPRO (HUMAN) SOLN [id number] Rahul Anaya MD HUMALOG SOLN Take as 07-16-2010 - 08-26-2011 [facility] directed (70703) INSULIN LISPRO (HUMAN) SOLN [id number] Rahul Anaya MD HUMALOG SOLN Take as 07-16-2010 [facility] directed INSULIN (446 91) LISPRO (HUMAN) SOLN 57157259506 Tracee Beard HUMALOG SOLN Take as 07-16-2010 [facility] directed INSULIN (446 91) LISPRO (HUMAN) SOLN [id number] Tracee Beard HUMALOG SOLN Take as 07-16-2010 - 08-26-2011 [facility] directed (10168) INSULIN LISPRO (HUMAN) SOLN [id number] Rahul Anaya MD HUMALOG SOLN Take as 07-16-2010 - 08-26-2011 [facility] directed (72503) INSULIN LISPRO (HUMAN) SOLN [id number] Rahul Anaya MD HUMALOG SOLN Take as 07-16-2010 [facility] directed INSULIN (446 91) LISPRO (HUMAN) SOLN [id number] Tracee Roblesward HUMALOG SOLN Take as 07-16-2010 - 08-26-2011 [facility] directed (90227) INSULIN LISPRO (HUMAN) SOLN [id number] Rahul Anaya MD HUMALOG SOLN Take as 07-16-2010 [facility] directed INSULIN (446 91) LISPRO (HUMAN) SOLN [id number] Tracee Beard HUMALOG SOLN Take as 07-16-2010 [facility] directed INSULIN (446 91) LISPRO (HUMAN) SOLN [id number] Tracee Beard HUMALOG SOLN Take as 07-16-2010 - 08-26-[facility] (81322) INSULIN LISPRO (HUMAN) SOLN [id number] Rahul Anaya MD HUMALOG SOLN Take as 07-16-[facility] (446 91) LISPRO (HUMAN) SOLN [id number] Tracee Beard HUMALOG SOLN Take as 07-16-2010 - 08-26-2011 [facility] (27780) INSULIN LISPRO (HUMAN) SOLN [id number] Rahul Anaya MD HUMALOG SOLN Take as 07-16-2010 [facility] INSULIN (446 91) LISPRO (HUMAN) SOLN [id number] Tracee Beard HUMALOG SOLN Take as 07-16-2010 - 08-26-2011 [facility] (84070) INSULIN LISPRO (HUMAN) SOLN [id number] Rahul Anaya MD HUMALOG SOLN Take as 07-16-2010 - 08-26-2011 [facility] directed (63506) INSULIN LISPRO (HUMAN) SOLN [id number] Rahul Anaya MD HUMALOG SOLN Take as 07-16-[facility] INSULIN (446 91) LISPRO (HUMAN) SOLN [id number] Tracee Beard insulin lispro (HUMALOG [facility] Provider [facility] KWIKPEN INSULIN) 100 unit/mL (44 [...] [facility] UNIT/ML SOPN as directed (44 904) INSULIN GLULISINE [id number] Vicki Kirkpatrick RN APIDRA SOLOSTAR 100 UNIT/ML SOPN 12-11-2014 [facility] (77310) as directed INSULIN GLULISINE [id number] Vicki Kirkpatrick RN APIDRA SOLOSTAR 100 UNIT/ML SOPN 12-11-2014 [facility] (31433) as directed INSULIN GLULISINE [id number] Vicki Kirkpatrick RN APIDRA SOLOSTAR 100 UNIT/ML SOPN 12-11-2014 [facility] (86012) as directed INSULIN GLULISINE [id number] Vicki Kirkpatrick RN APIDRA SOLOSTAR 100 UNIT/ML SOPN 12-11-2014 [facility] (35600) as directed INSULIN GLULISINE [id number] Vicki Kirkpatrick RN APIDRA SOLOSTAR 100 UNIT/ML SOPN 12-11-2014 [facility] (18705) as directed INSULIN GLULISINE [id number] Vicki Kirkpatrick RN APIDRA SOLOSTAR 100 UNIT/ML SOPN 12-11-2014 [facility] (80215) as directed INSULIN GLULISINE [id number] Vicki Kirkpatrick RN APIDRA SOLOSTAR 100 UNIT/ML SOPN 12-11-2014 [facility] (45773) as directed INSULIN GLULISINE [id number] Vicki Kirkpatrick RN APIDRA SOLOSTAR 100 UNIT/ML SOPN 12-11-2014 [facility] (55819) as directed INSULIN GLULISINE [id number] Vicki Kirkpatrick RN APIDRA SOLOSTAR 100 UNIT/ML SOPN 12-11-2014 [facility] (63079) as directed INSULIN GLULISINE [id number] Vicki Kirkpatrick RN APIDRA SOLOSTAR 100 UNIT/ML SOPN 12-11-2014 [facility] (12966) as directed INSULIN GLULISINE [id number] Vicki Kirkpatrick RN APIDRA SOLN take as directed 08-26-2011 [facility] (80961) INSULIN GLULISINE SOLN [id number] Rahul Anaya MD APIDRJesica SOLN take as directed 08-26-2011 - 12-27-2014 [facility] (71907) INSULIN GLULISINE SOLN [id number] MD CRYSTAL RogersDRJesica SOLN take as directed 08-26-2011 [facility] (34387) INSULIN GLULISINE SOLN [id number] Rahul RJOASDRJesica SOLN take as directed 08-26-2011 - 12-27-2014 [facility] (62214) INSULIN GLULISINE SOLN [id number] MD RADHA Rogers SOLN take as directed 08-26-2011 - 12-27-2014 [facility] (00321) INSULIN GLULISINE SOLN [id number] MD RADHA Rogers SOLN take as directed 08-26-2011 [facility] (53621) INSULIN GLULISINE SOLN [id number] Rahul GARCIA SOLN take as directed 08-26-2011 - 12-27-2014 [facility] (42939) INSULIN GLULISINE SOLN [id number] MD RADHA Rogers SOLAshwin take as directed 08-26-2011 [facility] (77074) INSULIN GLULISINE SOLN [id number] Rahul ESCOBEDO take as directed 08-26-2011 [facility] (67161) INSULIN GLULISINE SOLN [id number] Rahul ESCOBEDO take as directed 08-26-2011 - 12-27-2014 [facility] (28827) INSULIN GLULISINE SOLN [id number] MD RADHA Rogers take as directed 08-26-2011 [facility] (64481) INSULIN GLULISINE SOLN [id number] Rahul GARCIA SOLAshwin take as directed 08-26-2011 - 12-27-2014 [facility] (56589) INSULIN GLULISINE SOLN [id number] MD RADHA Rogers take as directed 08-26-2011 - 12-27-2014 [facility] (29776) INSULIN GLULISINE SOLN [id number] MD RADHA Rogers take as directed 08-26-2011 [facility] (01844) INSULIN GLULISINE SOLN [id number] Rahul ESCOBEDO take as directed 08-26-2011 - 12-27-2014 [facility] (61442) INSULIN GLULISINE SOLN [id number] MD RADHA Rogers take as directed 08-26-2011 [facility] (72464) INSULIN GLULISINE SOLN [id number] Rahul ESCOBEDO take as directed 08-26-2011 [facility] (43464) INSULIN GLULISINE SOLN [id number] Rahul GARCIA SOLAshwin take as directed 08-25-2011 - 12-27-2014 [facility] (49031) INSULIN GLULISINE SOLN [id number] MD RADHA Rogers SOLN take as directed 08-26-2011 [facility] (88663) INSULIN GLULISINE SOLN [id number] Rahul GARCIA SOLAshwin take as directed 08-26-2011 - 12-27-2014 [facility] (19486) INSULIN GLULISINE SOLN [id number] MD RADHA Rogers SOLN take as directed 08-26-2011 - 12-27-2014 [facility] (77524) INSULIN GLULISINE SOLN [id number] MD RADHA Rogers SOLN take as directed 08-26-2011 [facility] (59565) INSULIN GLULISINE SOLN [id number] Rahul GARCIA SOLAshwin take as directed 08-26-2011 - 12-27-2014 [facility] (48826) INSULIN GLULISINE SOLN [id number] MD RADHA Rogers SOLAshwin take as directed 08-26-2011 [facility] (66319) INSULIN GLULISINE SOLN [id number] Rahul GARCIA SOLAshwin take as directed 08-26-2011 - 12-27-2014 [facility] (86913) INSULIN GLULISINE SOLN [id number] MD RADHA Rogers SOLN take as directed 08-26-2011 [facility] (02742) INSULIN GLULISINE SOLN [id number] Rahul GARCIA SOLAshwin take as directed 08-26-2011 [facility] (71938) INSULIN GLULISINE SOLN [id number] Rahul GARCIA SOLN take as directed 08-26-2011 - 12-27-2014 [facility] (71425) INSULIN GLULISINE SOLN [id number] MD RADHA Rogers SOLAshwin take as directed 08-26-2011 [facility] (92493) INSULIN GLULISINE SOLN [id number] Rahul GARCIA SOLAshwin take as directed 08-26-2011 - 12-27-2014 [facility] (37422) INSULIN GLULISINE SOLN [id number] MD RADHA Rogers SOLN take as directed 08-26-2011 - 12-27-2014 [facility] (86225) INSULIN GLULISINE SOLN [id number] MD RADHA oRgers SOLAshwin take as directed 08-26-2011 [facility] (05526) INSULIN GLULISINE SOLN [id number] Rahul Anaya MD insulin, insulin NPH injection 10-13-2019 - Deniz valerio isophane (HumuLIN N,NovoLIN N) 12-12-2019 [facility], 32 units subcutaneous LLC (4 4691) before breakfast and 32 units at bedtime 0 10/13/2019 12/12/2019 Discontinued (Changing Therapy/Dosage Form) HUMULIN N 100 UNIT/ML SUSP take as 08-26-2011 [place] [employer] [facility] directed INSULIN ISOPHANE (68280) HUMAN [id number] Johan Perry MD HUMULIN N 100 UNIT/ML SUSP take as 08-26-2011 [place] [employer] [facility] directed INSULIN ISOPHANE (04265) HUMAN [id number] Johan Perry MD Comment: 32 units subcutaneous before breakfast and 32 units at bedtime isosorbide isosorbide mononitrate ER 09-22-2014 [facility] (IMDUR) 30 mg 24 hr tablet ( 96277) Take 60 mg by mouth once daily. 0 06/05/2016 Active ISOSORBIDE MONONITRATE ER 60 MG 09-22-2014 [facility] (18442) [id number] One tablet by mouth daily ISOSORBIDE MONONITRATE [id number] Vicki Kirkpatrick RN ISOSORBIDE MONONITRATE ER 60 MG 09-22-2014 - 02-07-2015 [facility] (24575) [id number] One tablet by mouth twice daily ISOSORBIDE MONONITRATE [id number] Vicki Kirkpatrick RN ISOSORBIDE MONONITRATE ER 60 MG 09-22-2014 [facility] (40013) [id number] One tablet by mouth daily- this was increased from 30 mg ISOSORBIDE MONONITRATE [id number] RAUL TimmonsC Comment: Take 60 mg by mouth once rustam ly. isosorbide ISORDIL TITRADOSE 06-27-2011 - Rahul Ludwig art dinitrate TABS 20mg, One 08-26-2011 [facility] (4469 1) tablet by mouth three times daily ISOSORBIDE DINITRATE TABS [id number] Rahul Anaya MD ISORDIL TITRADOSE TABS 20mg, One 06-26-2011 - 08-26-2011 [facility] (35726) tablet by mouth three times daily ISOSORBIDE DINITRATE TABS [id number] Rahul Anaya MD lansoprazole PREVACID 30 MG CPDR As 07-16-2010 - 06-09-2011 [facility] needed (74247) LANSOPRAZOLE [id number] Rahul Anaya MD PREVACID 30 MG CPDR As needed 07-16-2010 - 06-10-2011 [facility] (84827) LANSOPRAZOLE [id number] Tracee Beard latanoprost latanoprost (XALATAN) 0.005 % [facility] Provide r [facility] (05611) ophthalmic solution Use 1 Drop in both [...] r [facility] tablet by mouth daily (30238) LISINOPRIL [id number] Johan Perry MD LISINOPRIL 20 MG TABS 06-10-2011 [facility] art Group LISINOPRIL (33859) [id number] Johan Perry MD LISINOPRIL 20 MG TABS One 06-10-2011 Melany Khanna [facility] tablet by mouth twice daily PA-C (446 91) LISINOPRIL [id number] Melany Khanna, PA-C Comment: Take 1 tablet by mouth once daily. meclizine MECLIZINE HCL 12.5 MG 12-16-2010 - [facility] TABS One tablet by 07-03-2015 Group (44 691) mouth three times daily MECLIZINE HCL [id number] Melissa Marks RN metFORMIN METFORMIN HCL 500 MG 09-27-2014 [facility] TABS One tablet by Group (44 691) mouth twice daily METFORMIN HCL [id number] Melany Khanna, PA-C metOLazone METOLAZONE 2.5 MG 08-20-2016 - [facility] TABS One tablet by 09-04-2016 RN Group (44 691) mouth three times a week. Take 30 minutes prior to morning lasix dose METOLAZONE [id number] Johan Perry MD metoprolol TOPROL XL 100 MG 12-15-2011 Melissa Marks RN [facility] [id number] One tablet Group ( 65326) by mouth daily METOPROLOL SUCCINATE [id number] Johan Perry MD TOPROL XL 100 MG 12-15-2011 - [facility] [id number] One tablet by 12-11-2014 Group (4 4691) mouth daily- STOP replaced by coreg METOPROLOL SUCCINATE [id number] Melany Khanna PA-C TOPROL XL 100 MG 12-15-2011 Melissa Marks RN [facility] [id number] One tablet by Group (4 4691) mouth daily METOPROLOL SUCCINATE [id number] Johan Perry MD TOPROL XL 100 MG 12-15-2011 - [facility] [id number] One tablet by 12-11-2014 Group (4 4691) mouth daily- STOP replaced by coreg METOPROLOL SUCCINATE [id number] Melissa Marks RN TOPROL XL 100 MG 12-15-2011 [facility] [id number] One tablet by Group (4 4691) mouth daily- STOP replaced by coreg METOPROLOL SUCCINATE 57283067205 Melany Khanna PA-C TOPROL XL 100 MG 12-15-2011 Melissa Marks RN [facility] [id number]-[id number] One tablet by Group (4 4691) mouth daily METOPROLOL SUCCINATE [id number] Johan Perry MD TOPROL XL 100 MG 12-15-2011 [facility] [id number] One tablet by Group (4 4691) mouth daily- STOP replaced by coreg METOPROLOL SUCCINATE 82422957161 Melany Khanna PA-C TOPROL XL 100 MG 12-15-2011 - [facility] [id number]-[id number] One tablet by 12-11-2014 Group (4 [id number]) mouth daily- STOP replaced by coreg METOPROLOL SUCCINATE [id number] Melissathi Marks RN TOPROL XL 100 MG 12-15-2011 - [facility] [id number]-[id number] One tablet by 12-11-2014 Group (4 4691) mouth daily- STOP replaced by coreg METOPROLOL SUCCINATE 22402169209 Melissathi Marks RN TOPROL XL 100 MG 12-15-2011 Melissa A Selina RN [facility] [id number]-HRH One tablet by Group (4 4691) mouth daily METOPROLOL SUCCINATE 76593476944 Johan Perry MD TOPROL XL 100 MG 12-15-2011 [facility] [id number]-[id number] One tablet by Group (4 4691) mouth daily- STOP replaced by coreg METOPROLOL SUCCINATE 65561443932 Melany Khanna PA-C TOPROL XL 100 MG 12-15-2011 - [facility] [id number]-[id number] One tablet by 12-11-2014 Group (4 4691) mouth daily- STOP replaced by coreg METOPROLOL SUCCINATE 27139447556 Melissa A Selina RN TOPROL XL 100 MG 12-15-2011 Melissa Mooney Selina RN [facility] [id number]-KJA One tablet by Group (4 4691) mouth daily METOPROLOL SUCCINATE 27993227069 Johan Perry MD TOPROL XL 100 MG 12-15-2011 [facility] [id number] One tablet by Group (4 4691) mouth daily- STOP replaced by coreg METOPROLOL SUCCINATE 32531336553 Melany Khanna PA-C TOPROL XL 100 MG 12-15-2011 - [facility] [id number] One tablet by 12-11-2014 Group (4 4691) mouth daily- STOP replaced by coreg METOPROLOL SUCCINATE [id number] Melissa A Selina RN TOPROL XL 100 MG 12-15-2011 [facility] GU01W-CFM One tablet by Group (4 4691) mouth daily- STOP replaced by coreg METOPROLOL SUCCINATE 32618146244 Melany Khanna PA-C TOPROL XL 100 MG 12-15-2011 Melissa Mooney Selina ORTIZ [facility] [id number]-[id number] One tablet by Group (4 4691) mouth daily METOPROLOL SUCCINATE 02379948357 Johan Perry MD TOPROL XL 100 MG 12-15-2011 Melissa Mooney Selina ORTIZ [facility] [id number]-[id number] One tablet by Group (4 4691) mouth daily METOPROLOL SUCCINATE 50308440348 Johan Perry MD TOPROL XL 100 MG 12-15-2011 [facility] [id number]-RJZ One tablet by Group (4 4691) mouth daily- STOP replaced by coreg METOPROLOL SUCCINATE 03034849975 Melany Khanna PA-C TOPROL XL 100 MG 12-15-2011 - [facility] [id number]-OUT One tablet by 12-11-2014 Group (4 4691) mouth daily- STOP replaced by coreg METOPROLOL SUCCINATE [id number] Melissa Mooney Selina ORTIZ TOPROL XL 100 MG 12-15-2011 - [facility] CA99Q-WRE One tablet by 12-11-2014 Group (4 4691) mouth daily- STOP replaced by coreg METOPROLOL SUCCINATE 09956521621 Melissa Mooney Selina RN TOPROL XL 100 MG 12-15-2011 Melissa Jesica Selina ORTIZ [facility] YR13V-[id number] One tablet by Group (4 4691) mouth daily METOPROLOL SUCCINATE 80681300104 Johan Perry MD TOPROL XL 100 MG 12-15-2011 [facility] [id number]-WWK One tablet by Group (4 4691) mouth daily- STOP replaced by coreg METOPROLOL SUCCINATE 93416281531 Melany Khanna PA-C TOPROL XL 100 MG 12-15-2011 [facility] [id number]-MQA One tablet by Group (4 4691) mouth daily- STOP replaced by coreg METOPROLOL SUCCINATE 45629041681 Melany Khanna PA-C TOPROL XL 100 MG 12-15-2011 - [facility] [id number]-[id number] One tablet by 12-11-2014 Group (4 4691) mouth daily- STOP replaced by coreg METOPROLOL SUCCINATE 76240970096 Melissa Marks RN TOPROL XL 100 MG 12-15-2011 Melissa Marks RN [facility] [id number]-JYH One tablet by Group (4 4691) mouth daily METOPROLOL SUCCINATE 42305021246 Johan Perry MD TOPROL XL 100 MG 12-15-2011 [facility] AU16K-JDU One tablet by Group (4 4691) mouth daily- STOP replaced by coreg METOPROLOL SUCCINATE 47868869973 Melany Khanna PA-C TOPROL XL 100 MG 12-15-2011 - [facility] [id number]-RIM One tablet by 12-11-2014 Group (4 4691) mouth daily- STOP replaced by coreg METOPROLOL SUCCINATE 77248259275 Melissa Marks RN TOPROL XL 100 MG 12-15-2011 Melissa Marks RN [facility] LL19M-ZUS One tablet by Group (4 4691) mouth daily METOPROLOL SUCCINATE [id number] Johan Perry MD TOPROL XL 50 MG 08-26-2011 Rahul Allen [facility] [id number]-WEU (METOPROLOL Nicomaritza SIMMONS Group ([phone]) SUCCINATE) one tablet by mouth twice a day Rahul Anaya MD TOPROL XL 50 MG 08-26-2011 Rahul Allen [facility] [id number]-[id number] (METOPROLOL Héctor SIMMONS Group ([phone]) SUCCINATE) one tablet by mouth twice a day Rahul Anaya MD TOPROL XL 50 MG 08-26-2011 Rahul Allen [facility] [id number] (METOPROLOL Nicomaritza SIMMONS Group ([phone]) SUCCINATE) one tablet by mouth twice a day Rahul Anaya MD TOPROL XL 50 MG 08-26-2011 Rahul Allen [facility] [id number] (METOPROLOL Nicomaritza SIMMONS Group ([phone]) SUCCINATE) one tablet by mouth twice a day Rahul Anaya MD TOPROL XL 50 MG 08-26-2011 Rahul Allen [facility] [id number]-[id number] (METOPROLOL Nicolozaaretha SIMMONS Group ([phone]) SUCCINATE) one tablet by mouth twice a day Rahul Anaya MD TOPROL XL 50 MG 08-26-2011 Rahul Allen [facility] [id number]-PQD (METOPROLOL Nicolozaaretha SIMMONS Group ([phone]) SUCCINATE) one tablet by mouth twice a day Rahul Anaya MD TOPROL XL 50 MG 08-26-2011 Rahul Allen [facility] [id number] (METOPROLOL Nicolozaaretha SIMMONS Group (446 91) SUCCINATE) one tablet by mouth twice a day Rahul Anaya MD TOPROL XL 50 MG 08-26-2011 Rahul Allen [facility] [id number]-[id number] (METOPROLOL Nicolozaaretha SIMMONS Group ([phone]) SUCCINATE) one tablet by mouth twice a day Rahul Anaya MD TOPROL XL 50 MG 08-26-2011 Rahul Allen [facility] [id number]-[id number] (METOPROLOL Nicolozaaretha SIMMONS Group (446 91) SUCCINATE) one tablet by mouth twice a day Rahul Anaya MD TOPROL XL 50 MG 08-26-2011 Rahul Allen [facility] [id number]-SKL (METOPROLOL Nicolozaaretha SIMMONS Group (446 91) SUCCINATE) one tablet by mouth twice a day Rahul Anaya MD TOPROL XL 50 MG 08-26-2011 Rahul Allen [facility] [id number]-BVH (METOPROLOL Nicolozaaretha SIMMONS Group (446 91) SUCCINATE) one tablet by mouth twice a day Rahul Anaya MD TOPROL XL 50 MG 08-26-2011 Rahul Allen [facility] [id number]-[id number] (METOPROLOL Nicolozakes Group ([phone]) SUCCINATE) one tablet by mouth twice a day Rahul Anaya MD TOPROL XL 50 MG 08-26-2011 Rahul Allen [facility] [id number]-[id number] (METOPROLOL Nicolozaaretha SIMMONS Group ([phone]) SUCCINATE) one tablet by mouth twice a day Rahul Anaya MD TOPROL XL 50 MG 08-26-2011 Rahul Allen [facility] [id number]-MVH (METOPROLOL Nicolopanchito SIMMONS Group ([phone]) SUCCINATE) one tablet by mouth twice a day Rahul Anaya MD TOPROL XL 50 MG 08-26-2011 Rahul Allen [facility] [id number] (METOPROLOL Nicolozaaretha SIMMONS Group ([phone]) SUCCINATE) one tablet by mouth twice a day Rahul Anaya MD TOPROL XL 50 MG 08-26-2011 Rahul Allen [facility] [id number] (METOPROLOL Nicolozaaretha SIMMONS Group ([phone]) SUCCINATE) one tablet by mouth twice a day Rahul Anaya MD TOPROL XL 100 MG 06-10-2011 - [facility] [id number] 07-03-2011 Group (4469 1) METOPROLOL SUCCINATE [id number] Rahul Anaya MD TOPROL XL 100 MG 06-10-2011 - [facility] [id number] 07-03-2011 Group (4469 1) METOPROLOL SUCCINATE [id number] Funmilayo Morales RN TOPROL XL 50 MG 07-16-2010 [facility] [id number] One tablet by Group (4 4691) mouth twice daily METOPROLOL SUCCINATE 61017068173 Tracee Beard TOPROL XL 50 MG 07-16-2010 [facility] [id number]-GPU One tablet by Group (4 4691) mouth twice daily METOPROLOL SUCCINATE 76924786263 Tracee Cordova Beard TOPROL XL 50 MG 07-16-2010 [facility] [id number]-FYR One tablet by Group (4 4691) mouth twice daily METOPROLOL SUCCINATE 80257322311 Tracee Beard TOPROL XL 50 MG 07-16-2010 [facility] JL91T-[id number] One tablet by Group (4 4691) mouth twice daily METOPROLOL SUCCINATE 27691955928 Tracee Cordova Beard TOPROL XL 50 MG 07-16-2010 [facility] AM71I-CHT One tablet by Group (4 4691) mouth twice daily METOPROLOL SUCCINATE 07448313412 Tracee Cordova Beard TOPROL XL 50 MG 07-16-2010 [facility] GP50N-VZH One tablet by Group (4 4691) mouth twice daily METOPROLOL SUCCINATE 03175270994 Tracee Cordova Beard TOPROL XL 50 MG 07-16-2010 [facility] HS80F-QON One tablet by Group (4 4691) mouth twice daily METOPROLOL SUCCINATE 30902058419 Tracee Cordova Beard TOPROL XL 50 MG 07-16-2010 [facility] CF11O-MBQ One tablet by Group (4 4691) mouth twice daily METOPROLOL SUCCINATE 25465161644 Tracee Cordova Beard TOPROL XL 50 MG 07-16-2010 [facility] OB53O-GUF One tablet by Group (4 4691) mouth twice daily METOPROLOL SUCCINATE 90096023515 Tracee Cordova Beard TOPROL XL 50 MG 07-16-2010 [facility] KL84E-SRL One tablet by Group (4 4691) mouth twice daily METOPROLOL SUCCINATE 35802970678 Tracee Beard niacin NIACIN ER 1000 MG CR-TABS 09-22-2014 - 11-03-2014 [facility] One tablet by mouth daily (4 4691) NIACIN 34868416954 Johan Perry MD NIASPAN 1000 MG CR-TABS One 07-16-2010 - [facility] tablet by mouth twice daily 11-25-2012 Grou p (48615) NIACIN (ANTIHYPERLIPIDEMIC) 79139734330 Johan Perry MD NIASPAN 1000 MG CR-TABS One 07-16-2010 - [facility] tablet by mouth twice daily 11-25-2012 Grou p (05244) NIACIN (ANTIHYPERLIPIDEMIC) 08768539585 Johan Perry MD nitroglycerin NITRO-DUR 0.2 MG/HR 08-26-2011 - Funmilayo Morales RN [facility] Heart PT24 on every morning 11-25-2012 Group ([id number]) off qhs NITROGLYCERIN [id number] Rahul Anaya MD NITRO-DUR 0.2 MG/HR PT24 08-25-2011 - 11-25-2012 [facility] on every morning off qhs (97805) NITROGLYCERIN [id number] Johan Perry MD NITRO-DUR 0.2 MG/HR PT24 08-26-2011 Funmilayo Morales RN [facility] on every morning off qhs (84482) NITROGLYCERIN [id number] Rahul Anaya MD NITRO-DUR 0.2 MG/HR PT24 08-25-2011 - 11-25-2012 [facility] on every morning off qhs (00412) NITROGLYCERIN [id number] Johan Perry MD NITRO-DUR 0.2 MG/HR PT24 08-26-2011 Funmilayo Morales RN [facility] on every morning off qhs (86988) NITROGLYCERIN [id number] Rahul Anaya MD NITRO-DUR 0.2 MG/HR PT24 08-25-2011 - 11-25-2012 [facility] on every morning off qhs (14804) NITROGLYCERIN [id number] Johan Perry MD NITRO-DUR 0.2 MG/HR PT24 08-26-2011 Funmilayo Morales RN [facility] on every morning off qhs (05974) NITROGLYCERIN [id number] Rahul Anaya MD NITRO-DUR 0.2 MG/HR PT24 08-25-2011 - 11-25-2012 [facility] on every morning off qhs (42187) NITROGLYCERIN [id number] Johan Perry MD NITRO-DUR 0.2 MG/HR PT24 08-26-2011 [facility] on every morning off qhs (12718) NITROGLYCERIN [id number] Rahul Anaya MD NITRO-DUR 0.2 MG/HR PT24 08-25-2011 - 11-25-2012 [facility] on every morning off qhs (61713) NITROGLYCERIN [id number] Johan Perry MD NITRO-DUR 0.2 MG/HR PT24 08-26-2011 [facility] on every morning off qhs (23944) NITROGLYCERIN [id number] Rahul Anaya MD NITRO-DUR 0.2 MG/HR PT24 08-25-2011 - 11-25-2012 [facility] on every morning off qhs (28003) NITROGLYCERIN [id number] Johan Perry MD NITRO-DUR 0.2 MG/HR PT24 08-26-2011 DRAG[facility] on every morning off qhs (29661) NITROGLYCERIN [id number] Rahul Anaya MD NITRO-DUR 0.2 MG/HR PT24 08-26-2011 [facility] on every morning off qhs (36235) NITROGLYCERIN [id number] Rahul Anaya MD NITRO-DUR 0.2 MG/HR PT24 08-25-2011 - 11-25-2012 [facility] on every morning off qhs (94887) NITROGLYCERIN [id number] Johan Perry MD NITRO-DUR 0.2 MG/HR PT24 08-26-2011 [facility] on every morning off qhs (34659) NITROGLYCERIN [id number] Rahul Anaya MD NITRO-DUR 0.2 MG/HR PT24 08-25-2011 - 11-25-2012 [facility] on every morning off qhs (40633) NITROGLYCERIN [id number] Johan Perry MD NITRO-DUR 0.2 MG/HR PT24 08-25-2011 - 11-25-2012 [facility] on every morning off qhs (13412) NITROGLYCERIN [id number] Johan Perry MD NITRO-DUR 0.2 MG/HR PT24 08-26-2011 Funmilayo Morales RN [facility] on every morning off qhs (27776) NITROGLYCERIN [id number] Rahul Anaya MD NITROGLYCERIN 0.2 MG/HR 12-16-2010 - 06-27-2011 [facility] PT24 Patch, on Q AM, off Q (4469 1) HS NITROGLYCERIN [id number] Rahul Anaya MD NITROSTAT 0.4 MG SUBL 1 07-16-2010 [facility] tablet under tongue every (77180 ) 5 min up to 3 X NITROGLYCERIN [id number] Kath Esquivel MD NITROGLYCERIN 0.3 MG 02-28-2005 [facility] Provider [facility] rt Group SUBLINGUAL TAB Dissolve (60691) 0.4 mg under the tongue. Usual dose for angina is 1 tablet every 5 minutes for maximum of 3 doses in 15 minutes. 0 02/28/2005 Active Comment: Dissolve 0.4 mg under the to ngue. Usual dose for angina is 1 tablet every 5 minutes for maximum of 3 doses in 15 minutes. Nortriptyline nortriptyline (PAMELOR) 11-16-2019 Morgan Valdez [facility] 25 mg capsule (60438) Indications: Type 2 diabetes mellitus with peripheral neuropathy (HCC) Take 1 capsule by mouth daily at bedtime. 30 capsule 5 11/16/2019 Active Comment: Take 1 capsule by mouth ajay y at bedtime. nph insulin, human HUMULIN N 100 UNIT/ML SUSP 08-26-2011 [facility] take as directed (35024) INSULIN ISOPHANE HUMAN [id number] Johan Perry MD HUMULIN N 100 UNIT/ML SUSP take as directed 08-26-2011 [facility] (67434) INSULIN ISOPHANE HUMAN [id number] Johan Perry MD HUMULIN N 100 UNIT/ML SUSP take as directed 08-26-2011 [facility] (46668) INSULIN ISOPHANE HUMAN [id number] Johan Perry MD HUMULIN N 100 UNIT/ML SUSP take as directed 08-26-2011 [facility] (64153) INSULIN ISOPHANE HUMAN [id number] Johan Perry MD HUMULIN N 100 UNIT/ML SUSP take as directed 08-26-2011 [facility] (17357) INSULIN ISOPHANE HUMAN [id number] Johan Perry MD HUMULIN N 100 UNIT/ML SUSP take as directed 08-26-2011 [facility] (33740) INSULIN ISOPHANE HUMAN [id number] Johan Perry MD HUMULIN N 100 UNIT/ML SUSP take as directed 08-26-2011 [facility] (12543) INSULIN ISOPHANE HUMAN [id number] Johan Perry MD HUMULIN N 100 UNIT/ML SUSP take as directed 08-26-2011 [facility] (23855) INSULIN ISOPHANE HUMAN [id number] Johan Perry MD HUMULIN N 100 UNIT/ML SUSP take as directed 08-26-2011 [facility] (13845) INSULIN ISOPHANE HUMAN [id number] Johan Perry MD HUMULIN N 100 UNIT/ML SUSP take as directed 08-26-2011 [facility] (69591) INSULIN ISOPHANE HUMAN [id number] Johan Perry MD omeprazole PRILOSEC 40 MG CPDR One tablet by 08-26-2011 [facility] (96558) mouth twice daily.11 OMEPRAZOLE [id number] Rahul Anaya MD OMEPRAZOLE 20 MG CPDR One tablet by mouth 08-26-2011 [facility] (00014) twice daily OMEPRAZOLE [id number] Vicki Kirkpatrick RN OMEPRAZOLE 20 MG CPDR One tablet by mouth 08-26-2011 [facility] (11311) daily OMEPRAZOLE [id number] Johan Perry MD PRILOSEC 40 MG CPDR One tablet by mouth 08-26-2011 [facility] (46007) twice daily.11 OMEPRAZOLE [id number] Rahul Anaya MD PRILOSEC 40 MG CPDR One tablet by mouth 08-26-2011 [facility] (56163) twice daily.11 OMEPRAZOLE [id number] Rahul Anaya MD PRILOSEC 40 MG CPDR .12 06-10-2011 [facility] (14612) OMEPRAZOLE [id number] Rahul Anaya MD PRILOSEC 40 MG CPDR .12 06-10-2011 [facility] (27518) OMEPRAZOLE [id number] Rahul Anaya MD PRILOSEC 40 MG CPDR .12 06-10-2011 [facility] (98130) OMEPRAZOLE [id number] Rahul Anaya MD Ondansetron ZOFRAN 8 MG TABS 1 12-30-2016 - [facility] tablet by mouth every 01-01-2017 Group (78128) 8 hours as needed ONDANSETRON HCL [id number] Melany Khanna PA-C pantoprazole PANTOPRAZOLE SODIUM 08-26-2011 Melany Marks [facility] 40 MG TBEC One tablet [facility] (78457) by mouth daily PANTOPRAZOLE SODIUM [id number] Melany M Khanna, PA-C Comment: Take 40 mg by mouth once rustam ly. potassium chloride KLOR-CON M10 10 MEQ 10-09-2011 - [facility] CR-TABS One tablet by 09-04-2016 (37984 ) mouth daily POTASSIUM CHLORIDE GISELE CR [id number] MD LIANE RogersCON M10 10 MEQ 10-09-2011 [facility] CR-TABS One tablet by (02482) mouth daily POTASSIUM CHLORIDE GISELE CR [id number] MD LIANE RogersCON M10 10 MEQ 10-09-2011 [facility] CR-TABS One tablet by RN (63576) mouth daily POTASSIUM CHLORIDE GISELE CR [id number] MD LIANE RogersCON M10 10 MEQ 10-09-2011 [facility] CR-TABS One tablet by (38969) mouth daily POTASSIUM CHLORIDE GISELE CR [id number] MD LIANE RogersCON M10 10 MEQ 10-09-2011 [facility] CR-TABS One tablet by 09-04-2016 (69479) mouth daily POTASSIUM CHLORIDE GISELE CR [id number] MD LIANE RogersCON M10 10 MEQ 10-09-2011 [facility] CR-TABS One tablet by RN (86019) mouth daily POTASSIUM CHLORIDE GISELE CR [id number] MD LIANE RogersCON M10 10 MEQ 10-09-2011 [facility] CR-TABS One tablet by 09-04-2016 (40681) mouth daily POTASSIUM CHLORIDE GISELE CR [id number] MD LIANE RogersCON M10 10 MEQ 10-09-2011 [facility] CR-TABS One tablet by DRAGAN (80042) mouth daily POTASSIUM CHLORIDE GISELE CR [id number] Simms MD LIANE ZuletaCON M10 10 MEQ 10-09-2011 [facility] CR-TABS One tablet by (12391) mouth daily POTASSIUM CHLORIDE GISELE CR [id number] Johan MD LIANE ZuletaCON M10 10 MEQ 10-09-2011 [facility] CR-TABS One tablet by (14319) mouth daily POTASSIUM CHLORIDE GISELE CR [id number] JohanMD LIANE SuhCON M10 10 MEQ 10-09-2011 [facility] CR-TABS One tablet by RN (48247) mouth daily POTASSIUM CHLORIDE GISELE CR [id number] MD LIANE RogersCON M10 10 MEQ 10-09-2011 - [facility] CR-TABS One tablet by 09-04-2016 (32139) mouth daily POTASSIUM CHLORIDE GISELE CR [id number] Simms MD LIANE ZuletaCON M10 10 MEQ 10-09-2011 Melany [facility]me [facility] CR-TABS One tablet by RN (32567) mouth daily POTASSIUM CHLORIDE GISELE CR [id number] MD LIANE RogersCON M10 10 MEQ 10-09-2011 [facility] CR-TABS One tablet by (55783) mouth daily POTASSIUM CHLORIDE GISELE CR [id number] MD LIANE RogersCON M10 10 MEQ 10-09-2011 [facility] CR-TABS One tablet by (22238) mouth daily POTASSIUM CHLORIDE GISELE CR [id number] MD LIANE RogersCON M10 10 MEQ 10-09-2011 [facility] CR-TABS One tablet by DRAGAN (22223) mouth daily POTASSIUM CHLORIDE GISELE CR [id number] MD LIANE RogersCON M10 10 MEQ 10-09-2011 Melany [facility] CR-TABS One tablet by RN (56855) mouth daily POTASSIUM CHLORIDE GISELE CR [id number] MD LIANE RogersCON M10 10 MEQ 10-09-2011 [facility] CR-TABS One tablet by (14735) mouth daily POTASSIUM CHLORIDE GISELE CR [id number] MD LIANE RogersCON M10 10 MEQ 10-09-2011 [facility] CR-TABS One tablet by (29241) mouth daily POTASSIUM CHLORIDE GISELE CR [id number] MD LIANE RogersCON M10 10 MEQ 10-09-2011 Melany [facility] CR-TABS One tablet by RN (15196) mouth daily POTASSIUM CHLORIDE GISELE CR [id number] MD LIANE RogersCON M10 10 MEQ 10-09-2011 [facility] CR-TABS One tablet by (15693) mouth daily POTASSIUM CHLORIDE GISEEL CR [id number] MD LIANE RogersCON M10 10 MEQ 10-09-2011 Mel[facility] CR-TABS One tablet by RN (64699) mouth daily POTASSIUM CHLORIDE GISELE CR [id number] MD LIANE RogersCON M10 10 MEQ 11-25-2010 - [facility] CR-TABS One tablet by 09-04-2016 RN (72204) mouth daily POTASSIUM CHLORIDE GISELE CR [id number] Johan Perry MD ramipril ALTACE 10 MG CAPS One 07-16-2010 - 06-10-2011 [facility] tablet by mouth twice daily (00009) RAMIPRIL [id number] Rahul Anaya MD ALTACE 10 MG CAPS One tablet by 07-16-2010 - 06-09-2011 [facility] (01466) mouth twice daily RAMIPRIL [id number] Rahul Anaya MD ranolazine ranolazine SR (RANEXA) 02-15-[address] [facility] 1,000 mg Tb12 Take 1 (33415) tablet by mouth twice daily. 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 RANEXA 500 MG [id number] 02-15-2016 Melissa Marks RN [facility] One tablet by mouth (28151) twice daily RANOLAZINE [id number] Beverly Henry 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 RANEXA 1000 MG [id number]-[id number] 02-15-[address] [facility] One tablet by mouth RN (83695) twice daily RANOLAZINE [id number] Melany Khanna PA-C RANEXA 500 MG [id number] 02-15-2016 Melissa Marks RN [facility] One tablet by mouth (34767) twice daily RANOLAZINE [id number] Beverly Henry NP RANEXA 1000 MG [id number]-HXI 02-15-[address] [facility] One tablet by mouth RN (02749) twice daily RANOLAZINE [id number] Melany Khanna PA-C RANEXA 500 MG [id number] 02-15-2016 Melissa Marks RN [facility] One tablet by mouth (66837) twice daily RANOLAZINE [id number] Beverly Henry 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 RANEXA 1000 MG [id number]-[id number] 02-15-[address] [facility] One tablet by mouth RN (74879) twice daily RANOLAZINE [id number] Melany Khanna PA-C RANEXA 1000 MG [id number] 02-15-[address] [facility] One tablet by mouth RN (90569) twice daily RANOLAZINE [id number] Melany Khanna PA-C RANEXA 500 MG [id number] 02-15-2016 Melissa Marks RN [facility] One tablet by mouth (55295) twice daily RANOLAZINE [id number] Beverly Henry 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 RANEXA 500 MG [id number] 02-15-2016 [facility] One tablet by mouth (88252) twice daily RANOLAZINE [id number] Beverly Henry 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 RANEXA 1000 MG [id number]-[id number] 02-15-[address] [facility] One tablet by mouth RN (23259) twice daily RANOLAZINE [id number] Melany Khanna PA-C RANEXA 500 MG [id number]-HMV 02-15-2016 [facility] One tablet by mouth (26248) twice daily RANOLAZINE [id number] Beverly Henry 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 RANEXA 1000 MG [id number] 02-15-[address] [facility] One tablet by mouth RN (51781) twice daily RANOLAZINE [id number] Melany Khanna PA-C RANEXA 1000 MG [id number]-[id number] 02-15-[address] [facility] One tablet by mouth RN (54879) twice daily RANOLAZINE [id number] Melany Khanna PA-C RANEXA 500 MG [id number]-UVY 02-15-2016 [facility] One tablet by mouth (85007) twice daily RANOLAZINE [id number] Beverly Henry 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 RANEXA 1000 MG [id number]-[id number] 02-15-[address] [facility] One tablet by mouth RN (74417) twice daily RANOLAZINE [id number] Melany Khanna PA-C RANEXA 500 MG [id number]-[id number] 02-15-2016 Melissa Marks RN [facility] One tablet by mouth (73047) twice daily RANOLAZINE [id number] Beverly Henry 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 RANEXA 1000 MG [id number] 02-15-[address] [facility] One tablet by mouth RN (95299) twice daily RANOLAZINE [id number] Melany Khanna PA-C RANEXA 500 MG [id number] 02-15-2016 Melissa Marks RN [facility] One tablet by mouth (80802) twice daily RANOLAZINE [id number] Beverly Henry 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 RANEXA 500 MG [id number] 02-07-2015 - [facility] One tablet by mouth 07-03-2015 ([id number]) twice daily RANOLAZINE [id number] Johan Perry MD RANEXA 500 MG [id number] 02-07-2015 - [facility] One tablet by mouth 07-03-2015 (91968) twice daily RANOLAZINE [id number] Johan Perry MD RANEXA 500 MG [id number] 02-07-2015 Jessica Odom RN [facility] One tablet by mouth (99836) twice daily RANOLAZINE [id number] Johan Perry MD RANEXA 500 MG [id number] 02-07-2015 Jessica Odom RN [facility] One tablet by mouth (92500) twice daily RANOLAZINE [id number] Johan Perry MD RANEXA 500 MG [id number] 02-07-2015 - [facility] One tablet by mouth 07-03-2015 (81104) twice daily RANOLAZINE [id number] Johan Perry MD RANEXA 500 MG [id number] 02-07-2015 Jessica Odom RN [facility] One tablet by mouth (04785) twice daily RANOLAZINE [id number] Johan Perry MD RANEXA 500 MG [id number] 02-07-2015 - [facility] One tablet by mouth 07-03-2015 (90820) twice daily RANOLAZINE [id number] Johan Perry MD RANEXA 500 MG [id number] 02-07-2015 - [facility] One tablet by mouth 07-03-2015 (41291) twice daily RANOLAZINE [id number] Johan Perry MD RANEXA 500 MG [id number] 02-07-2015 Jessica Odom RN [facility] One tablet by mouth (47568) twice daily RANOLAZINE [id number] Johan Perry MD RANEXA 500 MG [id number] 02-07-2015 Jessica Odom RN [facility] One tablet by mouth (35634) twice daily RANOLAZINE [id number] Jhoan Perry MD RANEXA 500 MG [id number] 02-07-2015 - [facility] One tablet by mouth 07-03-2015 (27028) twice daily RANOLAZINE [id number] Johan Perry MD RANEXA 500 MG [id number] 02-07-2015 - [facility] One tablet by mouth 07-03-2015 (50088) twice daily RANOLAZINE [id number] Johan Perry MD RANEXA 500 MG [id number] 02-07-2015 Jessica Odom RN [facility] One tablet by mouth (07358) twice daily RANOLAZINE [id number] Johan Perry MD RANEXA 500 MG [id number] 02-07-2015 Jessica Odom RN [facility] One tablet by mouth (36048) twice daily RANOLAZINE [id number] Johan Perry MD RANEXA 500 MG [id number] 02-07-2015 - [facility] One tablet by mouth 07-03-2015 (14442) twice daily RANOLAZINE [id number] Johan Perry MD RANEXA 500 MG [id number] 02-07-2015 - [facility] One tablet by mouth 07-03-2015 (41440) twice daily RANOLAZINE [id number] Johan Perry MD RANEXA 500 MG [id number] 02-07-2015 Jessica Odom RN [facility] One tablet by mouth (33029) twice daily RANOLAZINE [id number] Johan Perry MD RANEXA 500 MG [id number] 02-07-2015 - [facility] One tablet by mouth 07-03-2015 (96791) twice daily RANOLAZINE [id number] Johan Perry MD RANEXA 500 MG [id number] 02-07-2015 Jessica Odom RN [facility] One tablet by mouth (60475) twice daily RANOLAZINE [id number] Johan Perry MD Comment: Take 1 tablet by mouth twice daily. Regular Insulin, insulin regular human 11-08-2019 - Deniz Roy [facility] Human (NOVOLIN R REGULAR 12-12-2019 (45394) U-100 INSULN) 100 unit/mL injection Indications: Type 2 diabetes mellitus with st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, with long-term current use of insulin ([facility]) Inject 15 units Subcutaneously three times daily [...] rOPINIRole rOPINIRole (REQUIP) 0.5 10-20-2019 Morgan Mooney [facility] (77613) mg tablet Take 1 tablet by mouth [...] twice (4 4691) daily SOTALOL HCL AF [id number] Rahul Anaya MD SOTALOL HCL (AF) 80 MG TABS One 07-04-2011 [facility] (73847) tablet by mouth twice daily SOTALOL HCL AF [id number] Funmilayo Morales RN SOTALOL HCL (AF) 80 MG TABS One 07-04-2011 - 03-04-2012 [facility] (95336) tablet by mouth twice daily SOTALOL HCL AF [id number] Rahul Anaya MD SOTALOL HCL (AF) 80 MG TABS One 07-04-2011 [facility] (97310) tablet by mouth twice daily SOTALOL HCL AF [id number] Funmilayo Morales RN SOTALOL HCL (AF) 80 MG TABS One 07-04-2011 [facility] (90067) tablet by mouth twice daily SOTALOL HCL AF [id number] Funmilayo Morales RN SOTALOL HCL (AF) 80 MG TABS One 07-04-2011 - 03-04-2012 [facility] (40311) tablet by mouth twice daily SOTALOL HCL AF [id number] Rahul Anaya MD SOTALOL HCL (AF) 80 MG TABS One 07-04-2011 - 03-04-2012 [facility] (66921) tablet by mouth twice daily SOTALOL HCL AF [id number] Funmilayo Morales RN SOTALOL HCL (AF) 80 MG TABS One 07-04-2011 - 03-04-2012 [facility] (73002) tablet by mouth twice daily SOTALOL HCL AF [id number] Rahul Anaya MD SOTALOL HCL (AF) 120 MG TABS One 07-03-2011 [facility] (61650) tablet by mouth twice daily SOTALOL HCL AF [id number] Funmilayo Morales RN SOTALOL HCL (AF) 120 MG TABS One 07-03-2011 [facility] (62998) tablet by mouth twice daily SOTALOL HCL AF [id number] Funmilayo Morales RN SOTALOL HCL (AF) 120 MG TABS One 07-03-2011 [facility] (26220) tablet by mouth twice daily SOTALOL HCL AF [id number] Funmilayo Morales RN SOTALOL HCL (AF) 120 MG TABS One 07-03-2011 [facility] (70423) tablet by mouth twice daily SOTALOL HCL AF [id number] Funmilayo Morales RN SOTALOL HCL (AF) 120 MG TABS One 07-03-2011 [facility] (18832) tablet by mouth twice daily SOTALOL HCL AF [id number] Funmilayo Morales RN Spironolactone spironolactone 11-26-2017 Morgan Valdez [facility] (ALDACTONE) 25 mg tablet (44 195) Take 1 tablet by mouth once daily. 0 11/26/2017 Active Comment: Take 1 tablet by mouth once daily. traZODone traZODone (DESYREL) 50 09-16-2019 - Deniz Mathur Ady Qu[facility] mg tablet Indications: 03-14-2020 (4419 5) Sleep difficulties Take 2 tablets by mouth daily at bedtime. 180 tablet 1 09/16/2019 03/14/2020 Active Comment: Take 2 tablets by mouth ajay y at bedtime. warfarin warfarin (COUMADIN) 3 mg 09-01-2019 Morgan Valdez [facility] tablet Indications: Chronic (31271) atrial fibrillation (HCC) 3 mg every Mon, Wed, Fri; 6 mg all other days 150 tablet 3 09/01/2019 Active COUMADIN 1 MG TABS Take as directed 3 08-26-2011 [facility] (54572) tablets by mouth one 5mg tablet to =8mg daily WARFARIN SODIUM [id number] Rahul Anaya MD COUMADIN 1 MG TABS managed by Dr. Hunt 08-26-2011 [facility] (79613) Cebul WARFARIN SODIUM [id number] Johan Perry MD COUMADIN 5 MG TABS managed by Dr. Hunt 08-26-2011 [facility] (53739) Cebul WARFARIN SODIUM [id number] Johan Perry MD COUMADIN 5 MG TABS Take as directed 5mg 08-26-2011 [facility] (21600) daily with three 1mg tablets to =8mg daily WARFARIN SODIUM [id number] Rahul Anaya MD Comment: 3 mg every Mon, Wed, Fri; 6 mg all other days Problems Active Problems Category Problem Name Status Date Location Acute myocardial Subsequent non-ST Active 12-11-2014 - [facility] infarction segment elevation - 06-26-2015 (44806) myocardial infarction - Cardiac dysrhythmias Atrial fibrillation Active 07-16-2010 - [facility] (69860) Conduction disorders Automatic implantable Active [facility] cardiac defibrillator in (44 195) situ Congestive heart Acute on chronic Active 12-17-2018 - [facility] failure; systolic heart failure (4419 5) nonhypertensive 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 - [facility] atherosclerosis and infarction - 06-26-2015 (30962) other heart disease - Diabetes mellitus Type 2 diabetes mellitus Active 06-15-2017 - [facility] without complication (82286) Diseases of white blood Leukocytosis Active 01-29-2013 - [facility] cells (95449) Disorders of lipid Hyperlipidemia Active 07-16-2010 - [facility] metabolism (25970) Esophageal disorders Gastroesophageal reflux Active 8 - [facility] disease (97158) Essential hypertension Essential hypertension Active 07-17-19 11 - [facility] (46200) Hyperplasia of prostate Benign prostatic Active 09-16-2007 - [facility] hypertrophy with outflow (44 195) obstruction Inflammatory conditions Balanitis Active 11-16-2016 - [facility] of male genital organs (4419 5) Other and ill-defined Cardiomegaly Active [facility] heart disease (41684) Other hereditary and Restless legs Active 07-28-2018 - [facility] degenerative nervous (53147) system conditions Other nutritional; Body mass index (BMI) Active 03-08-2013 - [facility] endocrine; and 38.0-38.9, adult (53439) metabolic disorders Other nutritional; Body mass index (BMI) Active 03-08-2013 - [facility] endocrine; and 37.0-37.9, adult (08084) metabolic disorders Other nutritional; Body mass index (BMI) Active 03-08-2013 - [facility] endocrine; and 34.0-34.9, adult (76291) metabolic disorders Other nutritional; Body mass index (BMI) Active 03-08-2013 - [facility] endocrine; and 35.0-35.9, adult [facility] metabolic disorders (12641) Other nutritional; Body mass index (BMI) Active 03-08-2013 - [facility] endocrine; and 36.0-36.9, adult - 03-29-2015 (60622) metabolic disorders - Other nutritional; Obesity Active 09-16-2011 - [facility] endocrine; and (01466) metabolic disorders Residual codes; Obstructive sleep apnea Active 07-26-2018 - [facility] unclassified syndrome (87293) Screening or history of Tobacco dependence Active 07-16-2010 - [facility] mental health and syndrome - 12-30-2016 (41562) substance abuse - Spondylosis; Arthritis of facet joint Active 07-14-2017 - [facility] intervertebral disc of lumbar spine (4419 5) disorders; other back problems Unclassified Type 2 diabetes mellitus Active 03-29-2015 - [facility] with diabetic peripheral (44 691) angiopathy without gangrene Unclassified Anticoagulant effect Active 07-03-2011 - [facility] (65904) Unclassified Placement of stent in Active 07-16-2010 - [facility] coronary artery (00953) Unclassified Long-term drug therapy Active 07-16-2010 - [facility] (13016) Unclassified Implantation of Active 07-16-2010 - [facility] automatic cardiac (42510) defibrillator Past or Other Problems Category Problem Name Status Date Location Fluid and electrolyte Hypokalemia Completed 08-18-2011 [facility] - - Group ([id number]) 06-26-2015 - Lymphadenitis [facility]opathy [facility]05655) Mycoses Onychomycosis due to Completed 06-05-2011 [facility] dermatophyte - (00387) Nonspecific chest pain Chest pain Completed 01-30-2016 [facility] (61314) Other aftercare 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 Completed 07-16-2010 [facility] (current) drug therapy - Group (26567) Other and unspecified Benign neoplasm of Completed 02-21-2009 [facility] benign neoplasm colon - (50928) Other circulatory Carotid bruit Completed 03-14-2016 [facility] disease - Group (40084) Other circulatory Low blood pressure Completed 08-18-[address] [facility] disease - - Group ([id number]) 06-26-2015 - Other diseases of veins Stasis dermatitis Completed 04-05-2013 [facility] and lymphatics - (17001) Other gastrointestinal Dysphagia Completed 03-01-2015 [facility] disorders - (52033) Other hematologic High troponin I level Completed 01-29-2013 [facility] conditions - (62447) Other lower respiratory Dyspnea, unspecified Completed 5 [place] disease - - Medical Service , 06-26-2015 [facility] (98937) - Other lower respiratory Dyspnea on exertion Completed 12-06-2014 [facility] disease - - Group (83153) 06-26-2015 - Other skin disorders Localized swelling, Completed 07-28-2018 [facility] mass and lump, neck - (93832) Other skin disorders Foot callus Completed 10-04-2014 [facility] - (08510) Phlebitis; H/O: Deep vein Completed 01-26-2018 [facility] thrombophlebitis and thrombosis - (58509) thromboembolism Residual codes; Past history of Completed 11-16-2016 [facility] unclassified procedure - (99540) Syncope Vasovagal syncope Completed 12-16-2010 [facility] - - Group ([id number]) 06-26-2015 - Unclassified Family history of Completed 01-26-2018 [facility] stroke - Group (55497) Unclassified Preoperative Completed 11-03-2014 [facility] cardiovascular - - Group (51228) examination 12-25-2014 - Unclassified Type 1 diabetes Completed 07-16-2010 [facility] mellitus with diabetic - - Group ([id number]) peripheral angiopathy 12-30-2016 without gangrene - Results Result Name Value Range Unit Interpretation Flag Date Location obsolete on 2019-12 OBSOLETE Refill (FAMPWS) Normal 01-06-2020 [facility] LOVELY DEVI ([id number]) 1945 [facility] Date Time Provider Department ([id number]) 01/06/20 MORGAN VALDEZ III FAMPWS During your [...] skin Date Reviewed: 10/27/2019 Reviewed by: Lin[place] ([facility]) JAZZY Carpenter - Fully Assessed Reason for Visit: Refill Request [94] Visit Diagnosis: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, with long-term current use of insulin ([facility]) [E11.40, Z79.4] Order(s):gabapentin (NEURONTIN) 300 mg capsuleTake [...] by MORGAN VALDEZ III, MD on 01/06/20 [facility]) Normal 12-27-2019 [facility] LOVELY DEVI ([id number]) 1945 [facility] Date Time Provider Department (44654) 12/27/19 MORGAN VALDEZ IIIVIVEK During your visit [...] check it on 01-04-2020. Please advise Samina Vladez III MD 12/27/2019 5:26 PM Signed no [...] Fully Assessed Reason for Visit: Patient Question [1557] Prescriptions as of 12/27/2019 Sig: INSULIN LISPRO [...] mouth once ajay * LANCETS Use with [employer]apBe[employer] Glucometer * ASPIRIN 81 MG TABLET Take [...] on 12/28/19 cnpn on 2019-12-20 CNPN Telephone ([facility]) Normal 12-20-2019 [facility] LOVELY DEVI ([id number]) 1945 M [facility] Time Provider Department (10114) 12/20/19 ANDRE (PHARMACIST), LEE COTTER During your visit today, we recorded the following informati on about you: Lee Moss Pharmacist 12/20/2019 5:07 PM Signed Patient was due to test INR today. Will continue to monitor for results. Lee Moss, Pharmacist ANSHUL SEBASTIAN 12/21/2019 9:21 AM Signed [facility] Referring provider: No ref. provider found Lovely Devi is a 74 year old year old male patient being evaluated today for anticoagulation Telemanagement visit. Patient is currently on the following anticoagulant Warfarin Labs PT INR (no units) Date Value 11/26/2018 Test sent to [facility]. 10/16/2017 1.8 01/16/2017 Test sent to [facility]. INR (POCT) (no units) Date Value 02/21/2019 [...] of liver or green tea, Ensure, Boost, [place] Instant Breakfast, Mulit-Vitamins, and V-8. Plan: ? Advised patient to continue with a hig her weekly warfarin dose at this time. ? Next home INR check scheduled on 01/04/2020 ? Patient verbalizes understanding of the plan. JOLEEN CERRATO, PHARMACIST Clinical Pharmacist, Pharmacy Anticoagulation Clinic Pharmacy Anticoagulation Clinic Pager: [phone] Description Patient has 3 mg tablets of warfarin. Patient takes in the m orning. . Allergies As of Date: 12/20/2019 Noted Allergy Reaction MORPHINE 02/28/2005 ROCEPHIN (CEFTRIAXONE SODIUM) 06/20/2014 14 - Other: See Com ments Comments: Hot flashes; redness to skin Date Reviewed: 10/27/2019 Reviewed by: Lin[place] ([facility]) JAZZY Carpenter - Fully Assessed Reason for [...] mouth once ajay * LANCETS Use with OneAcadiaSoftuch Glucometer * ASPIRIN 81 MG TABLET Take [...] on progress on 2019-11 PROGRESS HNO ID: [id number] Normal 12-15-2019 Am[place] Author: Denita Thorpe (Pharmacist) Clinic Service: ? Aneudy Author Type: Pharmacist ([id number]) Type: Progress Notes Filed: 12/27/2019 8:49 AM Note Text: TELEPHONIC APPOINTMENT [place] law requires the collaborative practice agreement to [...] manage ment appointment for diabetes. At 09/15 DEPUTY CORONER?appt,?insulin NPH dose decreased pt was consulted to pharmacy due to increased hypoglycemia.?At last DEPUTY CORONER visit gabapentin was initiated and empiric treatment for UTI was s tarted with nitrofurantoin monohydrate.?At PharmD visit on?,?ins ulin lispro dose was decreased and patient was recommended to pursue bas al/bolus insulin pens through [employer] [facility] patient assistance. At last PCP appt,?no medication [...] patient confirmed receiving Basaglar and Humalog from [facility], he was instructed t hat [...] Pharmacy:?[facility] ? Rx coverage:?Medicare ? Affordability:?insulins through [employer] [facility] ? 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 Esophageal Reflux Benign Neoplasm of Colon Dermatophytosis of Nail Atrial Fibrillation (Hcc) Anticoagulated On Coumadin Class 2 Severe Obesity Due to Excess Calories With Serious C omorbidity and Body Mass Index (Bmi) of 38.0 to 38.9 in Adult ([facility]) Stasis Dermatitis of Both Legs Foot Callus Subsequent Non-St Elevation (Nstem[facility]) Myocardial Infarction W ithin 4 Weeks of Initial Infarction ([facility]) Syncope Hyperlipidemia Ldl Goal <100 Ashd (Arteriosclerotic Heart Disease) Neurocardiogenic Syncope 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 , With Long-Term Current Use of Insulin (Hcc) Facet Arthritis of Lumbar Region Adenopathy Atrial Flutter ([facility]) Balanitis Coronary Angioplasty Status Elevated Troponin I [...] of vessel, na tive or graft s/p ID in 1985 - Diverticulosis of colon (without [...] ventricular tachycardia (HCC) - Snoring - Stroke ([facility]) - Tinea of nail 01/13/2011 - Type 2 diabetes mellitus with stage 3 chronic kidney disea se, with long-term current use of insulin ([facility]) 06/15/2017 - Unspecified essential hypertension ALLERGIES Allergen [...] G47.33 327.23 - fax compliance download to [phone] 1 Device 0 - flash glucose sensor [...] once daily. 0 - blood sugar diagnostic (Sensbeat BLOOD GLUCOSE SYSTEM) test strip Use as [...] PharmD, BCACP Primary Care Clinical Pharmacist [facility] cnov on 2019-12-15 CNOV Office Visit (PHMEWO) Normal 12-15-[address] [place] [address] Clinic LOVELY DEVI ([id number]) 1945 [place] Date Time Provider Department (80634) 12/15/19 10:30 AM KEMI (PHARMACIST)[facility] During your visit today, we recorded the following informati on about you: Anshul Hancock 12/27/2019 8:49 AM Signed TELEPHONIC APPOINTMENT [place] law requires the collaborative practice agreement to [...] pharmacotherapy management appointment for diabetes. At 09/15 DEPUTY CORONER?appt,?insulin NPH dose decreased pt was consulted to pharmacy due to increased hypoglycemia.?At last DEPUTY CORONER visit ga bapentin was initiated and empiric treatment for UTI was started with nit rofurantoin monohydrate.?At PharmD visit on?,?insulin lispro dose was decreased and patient was recommended to pursue basal/ bolus insulin pens through [employer] [facility] patient assistance. At last PCP appt,?no medication [...] Pharmacy:?[facility] ? Rx coverage:?Medicare ? Affordability:?insulins through [employer] ? 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 0 - blood sugar diagnostic (Sensbeat BLOOD GLUCOSE SYSTEM) test strip Use as [...] TOUCH ULTRASO FT LANCETS) lancets Use with [employer] Glucometer as directed 100 Each 3 - [...] disease, with long-term current use of insulin ([facility]) - ICD9: 250.40, 585.3, V58.67, ICD10: E11.22, [...] LisaD, BCACP Primary Care Clinical Pharmacist [facility] Referring Provider: DENIZ GARSIA [[id number]] Allergies As of Date: 12/15/2019 Noted Allergy Reaction MORPHINE 02/28/2005 ROCEPHIN (CEFTRIAXONE SODIUM) 06/20/2014 14 - Other: See Com ments Comments: Hot flashes; redness to skin Date Reviewed: 10/27/2019 Reviewed by: [place] ([facility]) JAZZY Carpenter - Fully Assessed Reason for Visit: Allied Health Visit [5] Cmt: DM Primary Visit Diagnosis:Type 2 diabetes mellitus with st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, with long-term current use of insulin ([facility]) [E11.22, N18.3, Z79.4] Prescriptions as of 12/15/2019 [...] 2019-12-09 Anion gap [Moles/Vol] 6 mmol/L 12-09-19 [facility] (59899) BASO ABS 12-09-2019 [facility] (67608) Basophils/100 WBC 12-09-2019 [facility] (d) (72780) Calcium [Mass/Vol] 8.7 8.8 - 10.5 MG/DL Abnormal 12-09-2019 [facility] MG/DL (50158) Chloride [Moles/Vol] 98 98 - 107 MEQ/L 0 [facility] MEQ/L (31184) Creatinine [Mass/Vol] 1.68 0.6 - 1.3 MG/DL Abnormal 12-09-19 [facility] MG/DL (27533) EOS ABS 12-09-2019 [facility] (43376) Eosinophils/100 WBC 12-09-2019 [facility] (Bld) (10124) Erythrocyte 12-09-2019 [facility] distribution width ( 08662) (RBC) [Ratio] GFR AFR AMER 52 mL/MIN 12-09-2019 [facility] (78870) GFR/1.73 sq 43 mL/MIN 12-09-2019 [facility] M.predicted MDRD (44 195) (S/P/Bld) [Vol rate/Area] Glucose [Mass/Vol] 209 74 - 106 MG/DL Abnormal 12-09-2019 [facility] MG/DL (96181) HCO3 (Bld) [Moles/Vol] 32.0 mmol/L 020 [facility] (00109) Hematocrit (Bld) 38.6 39 - 55 % % Abnormal 12-09-2019 [facility] [Volume fraction] (4 4195) Hemoglobin (Bld) 12.5 14 - 16.5 g/dL Abnormal 12-09-2019 [facility] [Mass/Vol] g/dL (72093) Lymphocytes (d) 12-09-2019 C [facility] [#/Vol] (63136) Lymphocytes/100 WBC 12-09-2019 [facility] (d) (77558) MCH (RBC) [Entitic 29.8 25.4 - 34.6 pg 0 [facility] mass] pg (57294) MCHC (RBC) [Mass/Vol] 32.4 30 - 36 g/dL g/dL 12-08 [facility] (32436) MCV (RBC) [Entitic 91.9 79 - 98 fL fL 12-09-2019 [facility] vol] (65522) MONO ABS 12-09-2019 [facility] (11539) Monocytes/100 WBC 12-09-2019 C [facility] (d) (76372) NEUT ABS 12-09-2019 [facility] (42297) Neutrophils/100 WBC 12-09-2019 [facility] (d) (66834) Platelet mean volume 10.4 7.4 - 10.4 fL fL 12-08 [facility] ([facility]) [Entitic vol] (71865) Platelets (Bld) 168 140 - 440 K/uL 12-09-2019 [facility] [#/Vol] K/uL (13908) Potassium [Moles/Vol] 4.3 3.5 - 5.1 MEQ/L 12-09-19 20 [facility] MEQ/L (76127) RBC (Bld) [#/Vol] 4.20 4 - 6 M/uL M/uL 12-09-2019 [facility] ([id number]) Sodium [Moles/Vol] 136 136 - 145 MEQ/L 12-09-2019 [facility] MEQ/L ([id number]) Urea nitrogen 32 6 - 20 mg/dL mg/dL Abnormal 12-09-2019 [facility] [Mass/Vol] ([id number]) WBC (Bld) [#/Vol] 5.7 3.9 - 11 K/uL K/uL 12-09-19 20 [facility] ([id number]) cnpn on 2019-12-08 CNPN Telephone (FAMPWS) Normal 12-08-2019 [facility] LOVELY DEVI ([id number]) 1945 [facility] Time Provider Department ([id number]) 12/08/19 MORGAN VALDEZ III During your visit today, we recorded the following informati on about you: Tasha Chan RN 12/08/2019 1:08 PM Signed Argelia- OT- [facility]- reporting POC- reports this was a [...] skin Date Reviewed: 10/27/2019 Reviewed by: Linwood ([facility]) JAZZY Carpenter - Fully Assessed Reason for Visit: [facility] OT POC [Other] Prescriptions as of [...] on 2019-11 OBSOLETE Refill (FAMPWS) Normal 12-07-2019 [facility] LOVELY DEVI ([id number]) 1945 M [facility] Time Provider Department ([id number]) 12/07/19 MORGAN VALDEZ III During your visit [...] skin Date Reviewed: 10/27/2019 Reviewed by: Linwood ([facility]) JAZZY Carpenter - Fully Assessed Reason for [...] III, MD on 12/07/19 yoandy on 2019-12-07 [facility] Telephone (FAMPWS) Normal 12-07-2019 [facility] LOVELY DEVI ([id number]) 1945 [facility] Time Provider Department ([id number]) 12/07/19 MORGAN VALDEZ III [facility] During your visit today, we recorded the following informati on about you: Cindi Eastman LPN 12/07/2019 10:56 AM Signed CRALITOS: Nicole with [facility] PT calling with plan of ca [...] skin Date Reviewed: 10/27/2019 Reviewed by: Linwood ([facility]) JAZZY Carpenter - Fully Assessed Reason for Visit: Plan of Care [Other] Cmt: [facility] PT Prescriptions as of 12/07/2019 Sig: [...] on 2019-12-06 CNPN Telephone (PHAMTE) Normal 12-06-2019 [facility] LOVELY DEVI ([id number]) 1945 M [facility] Time Provider Department ([id number]) 12/06/19 ANDRE (PHARMACIST)LEE During your visit today, we recorded the following informati on about you: Lee Moss, Pharmacist 12/06/2019 3:33 PM Signed [facility] Ambulatory Pharmacy Anticoagulation Clinic Lovely Devi is a 74 year old year old male patient being evaluated today for anticoagulation Telemanagement visit. Patient is currently on the following anticoagulant Warfarin Labs PT INR (no units) Date Value 11/26/2018 Test sent to [facility]. 10/16/2017 1.8 01/16/2017 Test sent to [facility]. INR (POCT) (no units) Date Value 02/21/2019 [...] a nd advised to call PAC at [phone] if any questions or changes to report. Would like to try one more time to reach patient. INR 2 weeks ago was low and lef t VM for patient so not sure if he got message. Lee Moss, Pharmacist Clinical Pharmacist, Pharmacy Anticoagulation Clinic Pharmacy Anticoagulation Clinic Pager: [phone] Description Patient has 3 mg tablets of warfarin. Patient takes in the m orning. . Cristina Escobar (Fiberglass Luggage Molder) 12/06/2019 5:16 PM Signed Patient called and left message that stated he r eceived a message re: his INR result and dosing but he cou ldn't understand what dose to take of his warfarin. Patient can be reached at [phone]. Cristina Escobar CPhT (Property Handler) Pharmacy Anticoagulation Clinic Anshul Marquez 12/06/2019 5:[address] [facility] Pharmacy Anticoagulation Clinic Referring provider: No ref. provider found Lovely Devi is a 74 year old year old male patient being evaluated today for anticoagulation Telemanagement visit. Patient is currently on the following anticoagulant Warfarin Labs PT INR (no units) Date Value 11/26/2018 Test sent to [facility]. 10/16/2017 1.8 01/16/2017 Test sent to [facility]. INR (POCT) (no units) Date Value 02/21/2019 [...] Pharmacy Anticoagulation Clinic Pharmacy Anticoagulation Clinic Pager: [phone] Description Patient has 3 mg tablets of warfarin. Patient takes in the m orning. . Allergies As of Date: 12/06/2019 Noted Allergy Reaction MORPHINE 02/28/2005 ROCEPHIN (CEFTRIAXONE SODIUM) 06/20/2014 14 - Other: See Com ments Comments: Hot flashes; redness to skin Date Reviewed: 10/27/2019 Reviewed by: Linwood ([facility]) JAZZY Carpenter - Fully Assessed Reason for [...] (PHARMACIST)GABRIELA on CNPN Telephone (FAMPWS) Normal 12-06-2019 [facility] LOVELY DEVI ([id number]) 1945 M [facility] Date Time Provider Department ([id number]) 12/06/19 MORGAN VALDEZ III During your visit today, we recorded the following informati on about you: Cindi Eastman LPN 12/06/2019 4:51 PM Signed Melissa @ [facility] plan of care and resumption of [...] skin Date Reviewed: 10/27/2019 Reviewed by: Linwood ([facility]) JAZZY Carpenter - Fully Assessed Reason for [...] mouth once ajay * LANCETS Use with OneAcadiaSoftuch Glucometer * ASPIRIN 81 MG TABLET Take [...] [Relative 1.6 2.0 - 3.0 Abnormal 09-0 [facility] ([id number]) time] cnpn on 2019-11-30 CNPN Telephone (PHMEWO) Normal 11-30-2019 [facility] LOVELY DEVI ([id number]) 1945 M [facility] Time Provider Department ([id number]) 11/30/19 KEMI (PHARMACIST)DENITA During your visit today, we recorded the following informati on about you: Cindi Pichardo RN 11/30/2019 12:55 PM Signed Patient wanted Pharmacist Denita aware that his mail cam e today and he did not receive the Basaglar insulin from [facility] in the mail yesterday or today. He was told to call Denita if did not receive insulin. Please review and advise. DRAGAN Valdez, Pharmacist 12/01/2019 3:54 PM Signed Returned call to patient. Pt 's answers phone to state that insulin package was received today. Denita Thorpe, PharmD, BCACP Primary Care Clinical Pharmacist [facility] Allergies As of Date: 11/30/2019 Noted Allergy Reaction MORPHINE 02/28/2005 ROCEPHIN (CEFTRIAXONE SODIUM) 06/20/2014 14 - Other: See Com ments Comments: Hot flashes; redness to skin Date Reviewed: 10/27/2019 Reviewed by: Linwood ([facility]) JAZZY Carpenter - Fully Assessed Reason for [...] on 2019-11-23 CNPN Telephone (PHAMTE) Normal 11-23-2019 [facility] LOVELY DEVI ([id number]) 1945 M [facility] Time Provider Department ([id number]) 11/23/19 BLOSSOM (PHARMACIST)BRIJESH During your visit today, we recorded the following informati on about you: ANSHUL SEBASTIAN 11/23/2019 8:56 AM Signed [facility] Ambulatory Pharmacy Anticoagulation Clinic Referring provider: No ref. provider found Lovely Devi is a 74 year old year old male patient being evaluated today for anticoagulation Telemanagement visit. Patient is currently on the following anticoagulant Warfarin Labs PT INR (no units) Date Value 11/26/2018 Test sent to [facility]. 10/16/2017 1.8 01/16/2017 Test sent to [facility]. INR (POCT) (no units) Date Value 02/21/2019 [...] Pharmacy Anticoagulation Clinic Pharmacy Anticoagulation Clinic Pager: [phone] Description Patient has 3 mg tablets of warfarin. Patient takes in the m orning. . Allergies As of Date: 11/23/2019 Noted Allergy Reaction MORPHINE 02/28/2005 ROCEPHIN (CEFTRIAXONE SODIUM) 06/20/2014 14 - Other: See Com ments Comments: Hot flashes; redness to skin Date Reviewed: 10/27/2019 Reviewed by: Linwood ([facility]) JAZZY Carpenter - Fully Assessed Reason for [...] mouth once ajay * LANCETS Use with SwapBeatsuch Glucometer * ASPIRIN 81 MG TABLET Take [...] (PHARMACIST)JOLEEN on CNPN Telephone (PHMEWO) Normal 11-23-2019 [facility] LOVELY DEVI ([id number]) 1945 M [place] Date Time Provider Department ([id number]) 11/23/19 KEMI (PHARMACIST)DENITA During your visit today, [...] (to replace Humul in) were sent to [facility] on 10/23. Attempted to call [employer] to flakita nathan, unable to reach automobile sales representative. Was able to leave voicemail [...] Thorpe PharmD, BCACP Primary Care Clinical Pharmacist [facility] Denita Thorpe Pharmacist 11/28/2019 4:55 PM Signed Called and spoke with [email or web address], they confirm that Basa glar is ready for delivery. Will arrive tomorrow. Called and spoke with pt's , Ila aleman re someone over the age of 18 is home to sign for package. She verbalized understanding. Denita Thorpe PharmD, BCACP Primary Care Clinical Pharmacist [facility] Allergies As of Date: 11/23/2019 Noted Allergy Reaction MORPHINE 02/28/2005 ROCEPHIN (CEFTRIAXONE SODIUM) 06/20/2014 14 - Other: See Com ments Comments: Hot flashes; redness to skin Date Reviewed: 10/27/2019 Reviewed by: Linwood ([facility]) JAZZY Carpenter - Fully Assessed Reason for Visit: Medication Update [0606] Prescriptions as of 11/23/2019 Sig: NORTRIPTYLINE 25 [...] [Relative 1.7 2.0 - 3.0 Abnormal - [facility] ([id number]) time] progress on 2019-10 PROGRESS HNO ID: [id number] Normal 11-21-2019 [facility] Author: Denita Thorpe (Pharmacist) Clinic Service: ? [facility] Author Type: Pharmacist ([id number]) Type: Progress Notes Filed: 12/05/2019 9:55 PM Note Text: TELEPHONIC APPOINTMENT [place] law requires the collaborative practice agreement to [...] manage ment appointment for diabetes. At 09/15 DEPUTY CORONER?appt,?insulin NPH dose decreased pt was consulted to pharmacy due to increased hypoglycemia.?At last DEPUTY CORONER visit gabapentin was initiated and empiric treatment for UTI was s tarted with nitrofurantoin monohydrate. At PharmD visit on , ins ulin lispro dose was decreased and patient was recommended to pursue bas al/bolus insulin pens through [employer] patient assistance. At last PCP appt, no [...] (Bmi) of 38.0 to 38.9 in Adult ([facility]) Stasis Dermatitis of Both Legs Foot Callus Subsequent Non-St Elevation (Nstemi) Myocardial Infarction W ithin 4 Weeks of Initial Infarction ([facility]) Syncope Hyperlipidemia Ldl Goal <100 Ashd (Arteriosclerotic [...] of vessel, na tive or graft s/p ID in 1985 - Diverticulosis of colon (without [...] ventricular tachycardia (HCC) - Snoring - Stroke ([facility]) - Tinea of nail 01/13/2011 - Type 2 diabetes mellitus with stage 3 chronic kidney disea se, with long-term current use of insulin ([facility]) 06/15/2017 - Unspecified essential hypertension ALLERGIES Allergen [...] humidity and lifetime supplies. Dx. JESSICA G47.33 327.53 - fax compliance download to [phone] 1 Device 0 - flash glucose sensor [...] once daily. 0 - blood sugar diagnostic (Sensbeat BLOOD GLUCOSE SYSTEM) test strip Use as [...] and LFTs appropriate for royal nued use. [place] law requires the collaborative practice agreement to [...] Abner, BCACP Primary Care Clinical Pharmacist [facility] cnov on 2019-11-21 CNOV Office Visit (PHMEWO) Normal 11-21-[address] [place] [address] Clinic LOVELY DEVI ([id number]) 1945 M [place] Date Time Provider Department ([id number]) 11/21/19 3:30 PM KEMI (PHARMACIST)DENITA During your visit today, we recorded the following informati on about you: Anshul Hancock 12/05/2019 9:55 PM Signed TELEPHONIC APPOINTMENT [place] law requires the collaborative practice agreement to [...] pharmacotherapy management appointment for diabetes. At 09/15 DEPUTY CORONER?appt,?insulin NPH dose decreased pt was consulted to pharmacy due to increased hypoglycemia.?At last DEPUTY CORONER visit ga bapentin was initiated and empiric treatment for UTI was started with nit rofurantoin monohydrate. At PharmD visit on , insulin lispro dose was decreased and patient was recommended to pursue basal/ bolus insulin pens through [employer] patient assistance. At last PCP appt, no [...] on CGM: 158 mg/dL Awaiting approval of [employer] insulin through [employer]AP, Emili log and Basaglar. [...] of vessel, na tive or graft s/p ID in 1985 - Diverticulosis of colon (without [...] disease, with long-term current use of insulin ([facility]) 06/15/2017 - Unspecified essential hypertension ALLERGIES Allergen [...] G47.33 327.23 - fax compliance download to [phone] 1 Device 0 - flash glucose sensor [...] once daily. 0 - blood sugar diagnostic (Sensbeat BLOOD GLUCOSE SYSTEM) test strip Use as [...] TOUCH ULTRASO FT LANCETS) lancets Use with SwapBeatsuch Glucometer as directed 100 Each 3 - [...] disease, with long-term current use of insulin ([facility]) - ICD9: 250.40, 585.3, V58.67, ICD10: E11.22, [...] of new basal/bolus insu maribell pens from [facility].?Renal function and LFTs appropriate for continued use. [place] law requires the collaborative practice agreement to [...] switching to Basaglar an d Humalog through [employer] patient assistance, will replace current insulins. ? ACEi/ARB for renal protection:?yes, Scr and K+ ok to royal nue ? HbA1c: 01/14/2020 Patient is not scheduled to see PCP. Patient to follow up with PharmD, pt to call me by end of week with update on if approved by PAP. Patient verbalized understanding of instructions. Denita Thorpe, LisaD, BCACP Primary Care Clinical Pharmacist [facility] Referring Provider: DENIZ GARSIA [[id number]] Allergies As of Date: 11/21/2019 Noted Allergy Reaction MORPHINE 02/28/2005 ROCEPHIN (CEFTRIAXONE SODIUM) 06/20/2014 14 - Other: See Com ments Comments: Hot flashes; redness to skin Date Reviewed: 10/27/2019 Reviewed by: Linwood ([facility]) JZAZY Carpenter - Fully Assessed Reason for Visit: [...] on 0 yoandy on 2019-11-09 CNPN Telephone ([facility]) Normal 11-09-2019 [facility] LOVELY DEVI ([id number]) 1945 [facility] Time Provider Department ([id number]) 11/09/19 BLOSSOM (PHARMACIST)BRIJESH During your visit today, we recorded the following informati on about you: ANSHUL SEBASTIAN 11/09/2019 9:42 AM Signed [facility] Ambulatory Pharmacy Anticoagulation Clinic Referring [...] Pharmacy Anticoagulation Clinic Pharmacy Anticoagulation Clinic Pager: [phone] Description Patient has 3 mg tablets of warfarin. Patient takes in the m orning. . Allergies As of Date: 11/09/2019 Noted Allergy Reaction MORPHINE 02/28/2005 ROCEPHIN (CEFTRIAXONE SODIUM) 06/20/2014 14 - Other: See Com ments Comments: Hot flashes; redness to skin Date Reviewed: 10/27/2019 Reviewed by: Linwood ([facility]) JAZZY Carpenter - Fully Assessed Reason for [...] on progress on 2019-10 PROGRESS HNO ID: [id number] Normal 11-04-2019 [facility] Author: Denita Thorpe (Pharmacist) [place] ([id number]) Service: ? Author Type: Pharmacist Type: Progress Notes Filed: 11/15/2019 9:14 AM Note Text: TELEPHONIC APPOINTMENT [place] law requires the collaborative practice agreement to [...] manage ment appointment for diabetes. At 09/15 DEPUTY CORONER appt, insulin NPH dose decreased pt was consulted to pharmacy due to increased hypoglycemia. At last DEPUTY CORONER visit gabapentin was initiated and empiric treatment for UTI was s tarted with nitrofurantoin monohydrate. At last PharmD visit on , insulin lispro dose was decreased and patient was recommended to pur funmilayo basal/bolus insulin pens through [facility] patient assista nce. At last PCP appt, [...] Allegramart. States he has not heard from [employer] patient assistance program yet about supply. States [...] ? Adherence: denies missed doses. ? Pharmacy: [facility] ? Rx coverage: Medicare ? Affordability: Gutierrez of brand name insulins is costly on i nsurance, on Relion brand insulin vials ? Diabetes supplies: [employer] ? 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 Esophageal Reflux Benign Neoplasm of Colon Dermatophytosis of Nail Atrial Fibrillation ([facility]) Anticoagulated On Coumadin Class 2 Severe Obesity Due to Excess Calories With Serious C omorbidity and Body Mass Index (Bmi) of 38.0 to 38.9 in Adult ([facility]) Stasis Dermatitis of Both Legs Foot Callus Subsequent Non-St Elevation (Nstemi) Myocardial Infarction W ithin 4 Weeks of Initial Infarction ([facility]) Syncope Hyperlipidemia Ldl Goal <100 Ashd (Arteriosclerotic Heart Disease) Neurocardiogenic Syncope 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 , With Long-Term Current Use of Insulin (Hcc) Facet Arthritis of Lumbar Region Adenopathy Atrial Flutter ([facility]) Balanitis Coronary Angioplasty Status Elevated Troponin I [...] of vessel, na tive or graft s/p ID in 1985 - Diverticulosis of colon (without [...] ventricular tachycardia (HCC) - Snoring - Stroke ([facility]) - Tinea of nail 01/13/2011 - Type 2 diabetes mellitus with stage 3 chronic kidney disea se, with long-term current use of insulin ([facility]) 06/15/2017 - Unspecified essential hypertension ALLERGIES Allergen [...] G47.33 327.23 - fax compliance download to [phone] 1 Device 0 - flash glucose sensor [...] once daily. 0 - blood sugar diagnostic (Sensbeat BLOOD GLUCOSE SYSTEM) test strip Use as [...] duration of action. Patient assistance forms for [employer] have been fazed and awaiting approval. Renal function and LFTs appropriate for c ontinued use. [place] law requires the collaborative practice agreement to [...] for switching to Basaglar and Humalog th [facility] patient [facility] ? ACEi/ARB for renal protection: yes, Scr and K+ ok to royal nue ? HbA1c: 01/14/2020 ? Patient is not scheduled to see PCP. Patient to follow up with PharmD on 11/21/2019. Patient verbalized understanding of instructions. Denita Thorpe, LisaD Primary Care Clinical Pharmacist [facility] yoandy on 2019-11-04 CNPN Telephone (PHMEWO) Normal 11-04-2019 [facility] LOVELY DEVI ([id number]) 1945 M [place] Date Time Provider Department ([id number]) 11/04/19 KEMI (PHARMACIST)DENITA During your visit today, [...] PharmD, BCACP Primary Care Clinical Pharmacist [facility] Allergies As of Date: 11/04/2019 Noted Allergy Reaction MORPHINE 02/28/2005 ROCEPHIN (CEFTRIAXONE SODIUM) 06/20/2014 14 - Other: See Com ments Comments: Hot flashes; redness to skin Date Reviewed: 10/27/2019 Reviewed by: Linwood ([facility]) JAZZY Carpenter - Fully Assessed Reason for Visit: Diabetes [34] Cmt: Medication recommendations Visit Diagnosis:Type [address] 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, with long-term current use of insulin ([facility]) [E11.22, N18.3, Z79.4] Order(s):insulin regular human (NOVOLIN [...] mouth once ajay * LANCETS Use with SwapBeatsuch Glucometer * ASPIRIN 81 MG TABLET Take [...] (PHARMACIST)DENITA on CNPN Telephone (NICOLEPWS) Normal 11-04-2019 [facility] LOVELY DEVI ([id number]) 1945 M [place] Date Time Provider Department ([id number]) 11/04/19 MORGAN VALDEZ III During your visit today, we recorded the following informati on about you: Kaitlin King LPN 11/04/2019 3:29 PM Signed Melissa from [facility] Health calling for recert orders, 2 visit s weekly for 9 weeks for wound care. Please advise Alex Genao MD 11/07/2019 2:39 PM Signed Ok to aircraft systems technician verbal ok for re-cert. Dante Chavez Ma 11/07/2019 3:18 PM Signed TC to Melissa - Detailed message left on confidential voicemail . Dante Chavez Ma Allergies As of Date: 11/04/2019 Noted Allergy Reaction MORPHINE 02/28/2005 ROCEPHIN (CEFTRIAXONE SODIUM) 06/20/2014 14 - Other: See Com ments Comments: Hot flashes; redness to skin Date Reviewed: 10/27/2019 Reviewed by: Linwood ([facility]) JAZZY Carpenter - Fully Assessed Reason for [...] congestive heart fail*12/17/2018 Encounter Status:Closed by DANTE HCAVEZ MA on 11/07/19 cnov on 2019-11-04 CNOV Office Visit (PHMEWO) Normal 11-04-[address] [place] [address] [facility] LOVELY DEVI ([id number]) 1945 [facility] Date Time Provider Department ([id number]) 11/04/19 10:30 AM KEMI (PHARMACIST)[facility] During your visit today, we recorded the following informati on about you: Anshul Hancock 11/15/2019 9:14 AM Signed TELEPHONIC APPOINTMENT [place] law requires the collaborative practice agreement to [...] pharmacotherapy management appointment for diabetes. At 09/15 DEPUTY CORONER appt, insulin NPH dose decreased pt was consulted to pharmacy due to increased hypoglycemia. At last DEPUTY CORONER visit ga bapentin was initiated and empiric treatment for UTI was started with nit rofurantoin monohydrate. At last PharmD visit on , insulin lispr o dose was decreased and patient was recommended to pursue basal/bolus insulin pens through [facility] [facility] patient assistance. At last PCP appt, no medication changes made but patient was encouraged to watch carbohydrates in diet and exercise regularly. INTERIM HISTORY: States DM first diagnosed at least >10 years ago. He used to be on Lantus and Humalog but those were expensive so he has switched to insulin NPH and insulin R, Relion brand [facility]ials [facility] States he has not heard from [employer] [facility] patient assistance program yet about supply. States [...] ? Adherence: denies missed doses. ? Pharmacy: [facility] ? Rx coverage: Medicare ? 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 With Stage 3 Chronic Kidney D isease, With Long-Term Current Use of Insulin ([facility]) Facet Arthritis of Lumbar Region Adenopathy Atrial Flutter ([facility]) Balanitis Coronary Angioplasty Status Elevated Troponin I [...] of vessel, na tive or graft s/p ID in 1985 - Diverticulosis of colon (without [...] ventricular tachycardia (HCC) - Snoring - Stroke ([facility]) - Tinea of nail 01/13/2011 - Type 2 diabetes mellitus with st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, with long-term current use of insulin ([facility]) 06/15/2017 - Unspecified essential hypertension ALLERGIES Allergen [...] G47.33 327.23 - fax compliance download to [phone] 1 Device 0 - flash glucose sensor [...] once daily. 0 - blood sugar diagnostic (Sensbeat BLOOD GLUCOSE SYSTEM) test strip Use as [...] TOUCH ULTRASO FT LANCETS) lancets Use with SwapBeatsuch Glucometer as directed 100 Each 3 - [...] disease, with long-term current use of insulin ([facility]) - ICD9: 250.40, 585.3, V58.67, ICD10: E11.22, [...] of actio n. Patient assistance forms for [employer] have been fazed and aw aiting approval. Renal function and LFTs appropriate for continued use. [place] law requires the collaborative practice agreement to [...] switching to Basaglar an d Humalog through [facility] patient assistance ? ACEi/ARB for renal protection: yes, Scr and K+ ok to royal nue ? HbA1c: 01/14/2020 ? Patient is not scheduled to see PCP. Patient to follow up with PharmD on 11/21/2019. Patient verbalized understanding of instructions. Denita Thorpe, PharmD Primary Care Clinical Pharmacist [place] [facility] Referring Provider: DENIZ GARSIA [[id number]] Allergies As of Date: 11/04/2019 Noted Allergy Reaction MORPHINE 02/28/2005 ROCEPHIN (CEFTRIAXONE SODIUM) 06/20/2014 14 - Other: See Com ments Comments: Hot flashes; redness to skin Date Reviewed: 10/27/2019 Reviewed by: Linwood ([facility]) JAZZY Carpenter - Fully Assessed Reason for Visit: Allied Health Visit [5] Cmt: DM Primary Visit Diagnosis:Type 2 diabetes mellitus with st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, with long-term current use of insulin ([facility]) [E11.22, N18.3, Z79.4] Prescriptions as of 11/04/2019 [...] mouth once ajay * LANCETS Use with SwapBeatsuch Glucometer * ASPIRIN 81 MG TABLET Take [...] on progress on 2019-09 PROGRESS HNO ID: [id number] Normal 10-27-2019 [facility] Author: Morgan Valdez III [place] ([id number]) Service: ? Author Type: Physician Type: Progress [...] c ontinue present medications 4. seen at [facility] in August with chest pain and [...] G47.33 327.23 - fax compliance download to [phone] - flash glucose sensor (FREESTYLE ANITRA 14 [...] mouth once daily. - blood sugar diagnostic (Sensbeat BLOOD GLUCOSE SYSTEM) test strip Use as [...] of vessel, na tive or graft s/p ID in 1985 - Diverticulosis of colon (without [...] care at wound center follow up with donation specialist follow up with FEDERICO Benítez MD on 2019-10-27 CNOV Office Visit (FAMPWS) Normal 10-27-19 [facility] LOVELY DEVI ([id number]) 1945 M [place] Date Time Provider Department ([id number]) 10/27/19 8:40 AM MORGAN VALDEZ III During [...] and continue present medications 4. seen at [facility] in August with chest pain and treated for cellulitis in ICU. Still having some chest pain, constant aching not clearly worse wi th walking but seems to resolve completely with NTG. To see gantry rigger to day. 5. JESSICA--tries to use CPAP [...] G47.33 327.23 - fax compliance download to [phone] - flash glucose sensor (FREESTYLE ANITRA 14 [...] TOUCH ULTRASO FT LANCETS) lancets Use with [employer] Glucometer as directed - Aspirin 81 mg [...] of vessel, na tive or graft s/p ID in 1985 - Diverticulosis of colon (without [...] care at wound center follow up with donation specialist follow up with FEDERICO Benítez MD, III MD 10/27/2019 9:16 AM Signed PLAN: healthy weight losing diet and regular exercise eat less sugar, bread, potato, pasta, rice, corn, corn syrup, saturated fats recheck HbA1c 3 mos increase gabapentin 900 mg three times/day for nerve pain continue wound care at wound center follow up with donation specialist follow up with Seven Valdez III MD Referring Provider: MORGAN VALDEZ III [[id number]] Allergies As of Date: 10/27/2019 Noted Allergy Reaction MORPHINE 02/28/2005 ROCEPHIN (CEFTRIAXONE SODIUM) 06/20/2014 14 - Other: See Com ments Comments: Hot flashes; redness to skin Date Reviewed: 10/27/2019 Reviewed by: Linwood ([employer]) JAZZY Carpenter - Fully Assessed Reason for Visit: 6 Month Exam [189] Primary Visit Diagnosis:Type 2 diabetes mellitus with diabetic neuropathy, with long-term current use of insulin ([facility]) [E11.40, Z79.4] Other Visit Diagnoses:Type 2 diabetes mellitus with st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, with long-term current use of insulin ([facility]) [E11.22, N18.3, Z79.4] Ischemic cardiomyopathy [I25.5] ASHD (arteriosclerotic heart disease) [I25.10] Hyperlipidemia LDL goal <100 [E78.5] Stasis dermatitis of both legs [I87.2] Essential hypertension [I10] JESSICA (obstructive sleep apnea) [G47.33] Order(s):HGB A1C [XHDTY0C] Order #: [id number] FUTURE gabapentin (NEURONTIN) 300 mg capsuleTake 3 [...] care at wound center follow up with donation specialist follow up with Seven Valdez III MD [...] on 10/27/19 cnpn on 2019-10-26 CNPN Telephone ([facility]) Normal 10-26-2019 [facility] LOVELY DEVI ([id number]) 1945 M [facility] Time Provider Department ([id number]) 10/26/19 BLOSSOM (PHARMACIST)BRIJESH During your visit today, we recorded the following informati on about you: ANSHUL SEBASTIAN 10/26/2019 4:37 PM Signed Patient was due to test INR today will continue to monitor f or results. Joleen Cerrato, PharmD Pharmacy Anticoagulation Clinic ANSHUL COLIN 10/27/2019 9:42 AM Signed [facility] Ambulatory Pharmacy Anticoagulation Clinic Lovely Devi is a 74 year old year old male patient being evaluated today for anticoagulation Telemanagement visit. Patient is currently on the following anticoagulant: Warfarin Labs PT INR (no units) Date Value 11/26/2018 Test sent to [facility]. 10/16/2017 1.8 01/16/2017 Test sent to [facility]. INR (POCT) (no units) Date Value 02/21/2019 [...] information and advised to call PAC at [phone] if any questions or changes to report. PRIYANKA BAUER PHARMACIST Clinical Pharmacist, Pharmacy Anticoagulation Clinic Pharmacy Anticoagulation Clinic Pager: [phone] Allergies As of Date: 10/26/2019 Noted Allergy Reaction MORPHINE 02/28/2005 ROCEPHIN (CEFTRIAXONE SODIUM) 06/20/2014 14 - Other: See Com ments Comments: Hot flashes; redness to skin Date Reviewed: 10/06/2019 Reviewed by: Kath (Dnp.Pattern Developer) SHANELLE Nielsen.ELBA - Fully Assesse d Reason [...] on 2019-10-24 CNPN Telephone (PH[facility]) Normal 10-24-2019 [facility] LOVELY DEVI ([id number]) 1945 M [place] Date Time Provider Department ([id number]) 10/24/19 KEMI (PHARMACIST)DENITA During your visit today, we recorded the following informati on about you: Anshul Hancock 10/24/2019 9:38 AM Signed Received patient's completed patient section of the [employer] res PAP application. Completed prescriber section and wi provider to PCP for review and signature of orders. Medications pursuing through [facility] PAP: ? Basaglar (to replace insulin NPH) ? Humalog (to replace insulin R) Once PCP sign orders, ok to fax to [facility] ( ). Please place in pharmacy mailbox for record keeping and follow up. Thanks! Denita Thorpe PharmD Primary Care Clinical Pharmacist [place] [facility] Linwood Carpenter CMA, MA 10/24/2019 10:19 AM Signed Forms placed on PCP's desk. AUDI Rowan III MD 10/24/2019 1:10 PM Signed form has been signed FEDERICO Alatorre MD, CMA, [place] 10/24/2019 1:47 PM Signed Form faxed and placed in pharmacist mail slot. Linwood Carpenter CMA Allergies As of Date: 10/24/2019 Noted Allergy Reaction MORPHINE 02/28/2005 ROCEPHIN (CEFTRIAXONE SODIUM) 06/20/2014 14 - Other: See Com ments Comments: Hot flashes; redness to skin Date Reviewed: 10/06/2019 Reviewed by: Kath (Dnp.Pattern Developer) SHANELLE Nielsen.DEPUTY CORONER - Fully Assesse d Reason for Visit: Patient Assistance [[id number]] Cmt: Humalog and Basaglar Prescriptions as of [...] on 2019-10-17 CNPN Telephone (FAMPWS) Normal 10-17-2019 [facility] LOVELY DEVI ([id number]) 1945 [facility] Date Time Provider Department ([id number]) 10/17/19 MORGAN VALDEZ III FAMPWS During your visit today, we recorded the following informati on about you: Cindi Eastman LPN 10/17/2019 3:27 PM Signed Melany with [facility] called and needed c larification on [...] 25 Hydroxy 24.5 31.0-80.0 ng/mL Low 0 [facility] (40191) Comment: Result Comment: Classificati on of 25 [place] Vitamin D status: Insufficiency/Moderate Defic iency: < or = 30 ng/mL Sufficiency/Optimal Levels: 31 to 80 ng/mL Toxicity: > 100 ng/mL Test performed by chemilumin escent immunoassay. Performed By: #### HBA1C, CM P, LIPB, VITD ####[facility] [address] [place], [place] [phone] lipid panel, basic on 2019-10-14 Cholesterol [Mass/Vol] 123 <200 mg/dL Normal 020 [facility] (08375) Comment: Result Comment: <200 mg/dL, Desirable 200-239 mg/dL, Borderline hi gh >239 mg/dL, High Performed By: #### HBA1C, CM P, LIPB, VITD ####[facility] [address] [place], [place] [phone] Cholesterol in HDL [Mass/Vol] 35 >39 mg/dL Low 10-14-2019 [facility] (54885) Comment: Result Comment: 40-59 mg/dL, Acceptable >59 mg/dL, High: Negative ri sk factor for coronary heart disease <40 mg/dL, Low: Positive ris k factor for coronary heart disease Performed By: #### HBA1C, CM P, LIPB, VITD ####[facility] [address] [place], [place] [phone] Cholesterol in LDL 53 <100 mg/dL Normal 10-14-2019 [facility] [Mass/Vol] [place] (99451) Comment: Result Comment: <100 mg/dL, Optimal 100-129 mg/dL, Near optimal/ above optimal 130-159 mg/dL, Borderline hi gh 160-189 mg/dL, High >189 mg/dL, Very high Secondary prevention optimal LDL Cholesterol levels are recommended to be < 70 mg/dL Performed By: #### HBA1C, CM P, LIPB, VITD ####[facility] [place], [place] [phone] Fasting Time 12 hrs Normal 10-14-2019 [facility] (70759) Comment: Performed By: #### HBA1C, CM P, LIPB, VITD ####[place] [address] [place], [place] [phone] LDL:HDL Ratio 1.51 <2.54 Normal 10-14-2019 [facility] (24007) Comment: Result Comment: Reference: 1. National Cholesterol Educ ation Program ATP III Guideline At-A-Glance Quick Desk Reference: National Heart, Lung, and Blood [place]. National Institutes of Health. 2001: NIH Publication No. 01-3305. 2. An International Atherosc lerosis Society position paper: global recommendations for the management of dyslipidemia: executive summary, Atherosclerosis. 2014: 232(2):410-413. Performed By: #### HBA1C, CM P, LIPB, VITD ####[facility] [address] [place], [place] [phone] Non HDL Cholesterol 88 <130 mg/dL Normal 10-14-2019 [facility] (55832) Comment: Result Comment: <130 mg/dL, Optimal 130-159 mg/dL, Near optimal/ above optimal 160-189 mg/dL, Borderline hi gh 190-219 mg/dL, High >219 mg/dL, Very high Secondary prevention optimal non HDL Cholesterol levels are recommended to be < 100 mg/dL Performed By: #### HBA1C, CM P, LIPB, VITD ####[facility] [address] [facility] [place] [phone] TC:HDL Ratio 3.51 <5.10 Normal 10-14-2019 [facility] (52284) Comment: Performed By: #### HBA1C, CM P, LIPB, VITD ####[place] [address] [place], [place] [phone] Triglyceride [Mass/Vol] 177 <150 mg/dL High 2019 [facility] (71593) Comment: Result Comment: <150 mg/dL, Normal 150-199 mg/dL, Borderline hi gh 200-499 mg/dL, High >499 mg/dL, Very high Performed By: #### HBA1C, CM P, LIPB, VITD ####[place] [address] [place], [place] [phone] VLDL Cholesterol 35 <30 mg/dL High 10-14-2019 [facility] (84308) Comment: Performed By: #### HBA1C, CM P, LIPB, VITD ####[place] [address] [place], [place] [phone] hemoglobin a1c on 2 HbA1c (Bld) [Mass fraction] 171 mg/dL Normal [facility] (34473) Comment: Result Comment: eAG: (Estima devin average glucose) is a calculated value from HgbA1c and is automobile sales representative of the average blood glucose level in the last 2-3 month period. Performed By: #### HBA1C, CM P, LIPB, VITD ####[place] [address] [place], [place] [phone] HbA1c (Bld) [Mass fraction] 7.6 4.3-5.6 % High [facility] (02276) Comment: Result Comment: [place] Dominique betes Association guidelines indicate that patients with HgbA1c in the range 5.7-6.4% are at increased risk for development of diabetes, and intervention by lifestyle modification may be beneficial. HgbA1c greater o r equal to 6.5% is considered diagnostic of diabetes. Performed By: #### HBA1C, CM P, LIPB, VITD ####[facility] [address] [place] [phone] comp metabolic panel on 2019-10-14 Albumin [Mass/Vol] 4.1 3.9-4.9 g/dL Normal 10-14-2019 [facility] (74454) Comment: Performed By: #### HBA1C, CM P, LIPB, VITD ####[facility] [address] [place] [phone] ALP [Catalytic activity/Vol] 55 38-113 U/L Normal 0 10-14-2019 [facility] (14125) Comment: Performed By: #### HBA1C, CM P, LIPB, VITD ####[place] [address] [place] [phone] ALT [Catalytic activity/Vol] 26 10-54 U/L Normal 0 10-14-2019 [facility] (84919) Comment: Performed By: #### HBA1C, CM P, LIPB, VITD ####[place] [address] [place], [place] [phone] Anion gap [Moles/Vol] 10 9-18 mmol/L Normal 10-14-19 [facility] (07645) Comment: Performed By: #### HBA1C, CM P, LIPB, VITD ####[facility] [address] [place] [phone] AST [Catalytic activity/Vol] 23 14-40 U/L Normal 0 10-14-2019 [facility] (19366) Comment: Performed By: #### HBA1C, CM P, LIPB, VITD ####[facility] [address] [place], [place] [phone] Bilirubin [Mass/Vol] 0.4 0.2-1.3 mg/dL Normal 0 [facility] (08158) Comment: Performed By: #### HBA1C, CM P, LIPB, VITD ####[facility] [address] [place], [place] [phone] Calcium [Mass/Vol] 9.0 8.5-10.2 mg/dL Normal 10-14-2019 [facility] (08490) Comment: Performed By: #### HBA1C, CM P, LIPB, VITD ####[facility] [address] [place], [place] [phone] Chloride [Moles/Vol] 101 97-105 mmol/L Normal 0 [facility] (31345) Comment: Performed By: #### HBA1C, CM P, LIPB, VITD ####[place] [address] [place], [place] [phone] CO2 [Moles/Vol] 24 22-30 mmol/L Normal 10-14-2019 [facility] (24321) Comment: Performed By: #### HBA1C, CM P, LIPB, VITD ####[facility] [place], [place] [phone] Creatinine [Mass/Vol] 1.30 0.73-1.22 mg/dL High 10-14-19 20 [facility] (85559) Comment: Performed By: #### HBA1C, CM P, LIPB, VITD ####[facility] [address] [place], [place] [phone] eGFR- Amer. >60 Normal 10-14-2019 [facility] (50624) Comment: Performed By: #### HBA1C, CM P, LIPB, VITD ####[facility] [place], [place] [phone] GFR/1.73 sq M predicted among 54 . Normal 10-14-2019 [facility] non-blacks MDRD (S/P/Bld) [Vol (18267) rate/Area] Comment: Result Comment: eGFR (Estima devin [...] By: #### HBA1C, CM P, LIPB, VITD ####[facility] [address], [place] [phone] Glucose [Mass/Vol] 197 74-99 mg/dL High 10-14-2019 [facility] (08166) Comment: Result Comment: The [place] Diabetes Association (ADA) provides guidance for cutoff [...] for diagnosis of diabetes. Reference: Standards of [facility] Care in Diabetes 2016, [place] Diabetes Association. Diabetes Care. 2016.39(Suppl 1). Performed By: #### HBA1C, CM P, LIPB, VITD ####[facility] [address] [place], [place] [phone] Potassium [Moles/Vol] 4.6 3.7-5.1 mmol/L Normal 10-14-19 [facility] (38282) Comment: Performed By: #### HBA1C, CM P, LIPB, VITD ####[facility] [address] [place], [place] [phone] Protein [Mass/Vol] 6.0 6.3-8.0 g/dL Low 10-14-2019 [facility] (29404) Comment: Performed By: #### HBA1C, CM P, LIPB, VITD ####[facility] [address] [place], [place] [phone] Sodium [Moles/Vol] 135 136-144 mmol/L Low 10-14-2019 [facility] (69457) Comment: Performed By: #### HBA1C, CM P, LIPB, VITD ####[facility] [address] [place], [place] [phone] Urea nitrogen [Mass/Vol] 27 9-24 mg/dL High 10-13 [facility] (55904) Comment: Performed By: #### HBA1C, CM P, LIPB, VITD ####[facility] [place], [place] [phone] albumin/creat ratio on 2019-10-14 Albumin Urine Random <12.0 Normal 0 [facility] (50504) Comment: Performed By: #### UACR #### [facility], [place] [phone] Albumin/Creat Ratio Not calculated <30 Normal 10-13 [facility] (38932) Comment: Performed By: #### UACR #### [facility] [address], [place] [phone] Creatinine,Urine,Ran 63.4 20-300 mg/dL Normal 0 [facility] (86699) Comment: Performed By: #### UACR #### [facility] [address], [place] [phone] progress on 2019-09 PROGRESS HNO ID: [id number] Normal 10-12-2019 [facility] Author: Denita Thorpe (Pharmacist) [place] ([id number]) Service: ? Author Type: Pharmacist Type: Progress Notes Filed: 10/13/2019 5:40 PM Note Text: [place] law requires the collaborative practice agreement to [...] is presenting today for initial pharmacotherapy alok [facility] appointment for diabetes. At 09/15 DEPUTY CORONER appt, insulin NPH dose decreased pt was consulted to pharmacy due to increased hypoglycemia. At last DEPUTY CORONER visit gabapentin was initiated and empiric treatment [...] really watch what he eats. He has [employer] CGM. Does not have [employer] accounts , states he is not too [...] ? Adherence: denies missed doses. ? Pharmacy: [facility] ? Rx coverage: Medicare ? Affordability: Gutierrez of brand name insulins is costly on i nsurance, on Relion brand insulin vials ? Diabetes supplies: [employer] Anitra ACTIVE PROBLEM LIST Cardiomegaly Essential Hypertension [...] of vessel, na tive or graft s/p ID in 1985 - Diverticulosis of colon (without [...] G47.33 327.23 - fax compliance download to [phone] - flash glucose sensor (FREESTYLE ANITRA 14 [...] mouth once daily. - blood sugar diagnostic (Sensbeat BLOOD GLUCOSE SYSTEM) test strip Use as [...] ase, with long-term current use of insulin ([facility]) - ICD9: 250.40, 585.3 , V58.67, ICD10: [...] of a ction. Patient assistance forms for [employer] given to pt to pursue basal insulin. Renal function and LFTs appropriate for continued use. [place] law requires the collaborative practice agreement to [...] 11/03, to u pload CGM data on [employer] prior to appt with help from daughter. Patient verbalized understanding of instructions. Denita Thorpe, Abner Primary Care Clinical Pharmacist [place] [facility] elban on 2019-10-12 CNPN Telephone (PaperKarmaRAV) Normal 10-12-2019 [facility] LOVELY DEVI ([id number]) 1945 [place] Date Time Provider Department ([id number]) 10/12/19 BLOSSOM (PHARMACIST)SHARIF During your visit today, we recorded the following informati on about you: ANSHUL SEBASTIAN 10/12/2019 9:23 AM Signed [facility] Ambulatory Pharmacy Anticoagulation Clinic Referring provider: No ref. provider found Lovelyguadalupe Devi is a 73 year old year old male patient being evaluated today for anticoagulation Telemanagement visit. Patient is currently on the following anticoagulant Warfarin Labs PT INR (no units) Date Value 11/26/2018 Test sent to [facility]. 10/16/2017 1.8 01/16/2017 Test sent to [facility]. INR (POCT) (no units) Date Value 02/21/2019 [...] Pharmacy Anticoagulation Clinic Pharmacy Anticoagulation Clinic Pager: [phone] Description Patient has 3 mg tablets of warfarin. Patient takes in the m orning. . Allergies As of Date: 10/12/2019 Noted Allergy Reaction MORPHINE 02/28/2005 ROCEPHIN (CEFTRIAXONE SODIUM) 06/20/2014 14 - Other: See Com ments Comments: Hot flashes; redness to skin Date Reviewed: 10/06/2019 Reviewed by: Kath (Faiza.Pattern Developer) Blaz, GENERAL DENTIST.DEPUTY CORONER - Fully Assesse d Reason for Visit: [...] mouth once ajay * LANCETS Use with SwapBeatsuch Glucometer * ASPIRIN 81 MG TABLET Take [...] 2019-10-12 CNOV Office Visit (PHMEWO) Normal 10-12-19 [facility] LOVELY DEVI ([id number]) 1945 [place] Date Time Provider Department ([id number]) 10/12/19 3:00 PM KEMI (PHARMACIST)DENITA During your visit today, we recorded the following informati on about you: Anshul Hancock 10/13/2019 5:40 PM Signed [place] law requires the collaborative practice agreement to [...] pharmacotherapy management appointment for diabetes. At 09/15 [facility] appt, insulin NPH dose decreased pt was consulted to pharmacy due to increased hypoglycemia. At last [facility] visit ga bapentin was initiated and empiric treatment for UTI was started with nit rofurantoin monohydrate. INTERIM HISTORY: States DM first diagnosed at least >10 years ago. He used to be on Lantus and Humalog but those were expensive so he has switched to insulin NPH and insulin R, Relion brand vials from [employer]. Reports in the past having l ower BG in the 50s, states it does not happen often but when it does he usually needs to treat it twice to improve the blood sugar. Reports does not really watch what he eats. He has [employer] CGM. Does not hav e [employer] accounts, states he is not too tech [...] ? Adherence: denies missed doses. ? Pharmacy: [facility] ? Rx coverage: Medicare ? 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 With Stage 3 Chronic Kidney D isease, With Long-Term Current Use of Insulin ([facility]) Facet Arthritis of Lumbar Region Adenopathy Atrial [...] (arteriosclerotic heart disease) 02/19/2015 - Atrial fibrillation ([facility]) 07/03/2011 - Automatic implantable cardiac defibrillator in situ - Petit's esophagus with esophagitis 03/01/2015 - Benign neoplasm of colon - Chronic diarrhea 09/16/2011 - Coronary atherosclerosis of unspecified type of vessel, na tive or graft s/p ID in 1985 - Diverticulosis of colon (without [...] ventricular tachycardia (HCC) - Snoring - Stroke ([facility]) - Tinea of nail 01/13/2011 - Type 2 diabetes mellitus with st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, with long-term current use of insulin ([facility]) 06/15/2017 - Unspecified essential hypertension ALLERGIES Allergen [...] G47.33 327.23 - fax compliance download to [phone] - flash glucose sensor (FREESTYLE ANITRA 14 [...] mouth once daily. - blood sugar diagnostic (Sensbeat BLOOD GLUCOSE SYSTEM) test strip Use as [...] TOUCH ULTRASO FT LANCETS) lancets Use with [employer] Glucometer as directed - Aspirin 81 mg [...] disease, with long-term current use of insulin ([facility]) - ICD9: 250.40, 585.3, V58.67, ICD10: E11.22, [...] on and LFTs appropriate for continued use. [place] law requires the collaborative practice agreement to be initiated by a physician in order to provide medication titration. [facility], pharmacy will only provide medication recommend ations [...] on 11/03, to upload CGM data on [employer] prior to appt with help from daughter. Patient verbalized understanding of instructions. Denita Thorpe PharmD Primary Care Clinical Pharmacist Oziel [facility] Anshul Hancock 10/12/2019 3:56 PM Addendum ? [...] replace insulin R) Referring Provider: DENIZ GARSIA [[id number]] Allergies As of Date: 10/12/2019 Noted Allergy Reaction MORPHINE 02/28/2005 ROCEPHIN (CEFTRIAXONE SODIUM) 06/20/2014 14 - Other: See Com ments Comments: Hot flashes; redness to skin Date Reviewed: 10/06/2019 Reviewed by: Kath (Dnp.Pattern Developer) SHANELLE Nielsen.ELBA - Fully Assesse d Reason [...] mouth once ajay * LANCETS Use with OneAcadiaSoftuch Glucometer * ASPIRIN 81 MG TABLET Take [...] 17 units before meals three times da ailsha plus sliding scale ? Add 0 units [...] on progress on 2019-09 PROGRESS HNO ID: [id number] Normal 10-06-2019 [facility] Author: Kath (Faiza.Elba) SEFERINO Nielsen Amado ([id number]) Service: ? Author Type: Nurse Practitioner Type: Progress Notes Filed: 10/06/2019 3:42 PM Note Text: Chief Complaint Patient presents with: Hematuria: urine taken but home health 2 weeks ago Burning with urination HPI Lovely Devi is a 73 year old male who presents he re today for a several day history of urinary symptoms. [facility] Morgan Valdez III MD. This is a new patient to me. Patient was recently admitted a nd discharged from [facility] for cellulitis to right leg. He developed [...] but states it was discontinued by his [facility] medicine doctor. Past medical history, appointments, [...] of vessel, na tive or graft s/p ID in 1985 - Diverticulosis of colon (without [...] se, with long-term current use of insulin ([facility]) 06/15/2017 - Unspecified essential hypertension Previous Surgical History PAST SURGICAL HISTORY Procedure Laterality Date - [facility] Dr. Anthony-repeat 3 years-11/2020 - COLONOSCOPY W/BX 02/21/09 - EGD W/O OR W/BRUSH/WASH EGD - EGD W/O OR W/BRUSH/WASH 02/16/08 EGD inpt [facility] H-pylori negative - EGD W/O OR W/BRUSH/WASH 05/24/15 EGD - EGD W/O OR W/BRUSH/WASH 12/21/2017 Dr. Anthony-repeat 3 years-11/2020 - HEART CATHETERIZATION 12/15/2014 [facility] - see scanned documents - HEART [...] G47.33 327.23 - fax compliance download to [phone] - flash glucose sensor (FREESTYLE ANITRA 14 [...] mouth once daily. - blood sugar diagnostic (Sensbeat BLOOD GLUCOSE SYSTEM) test strip Use as [...] Lacey Nguyen APN Student Kath Nielsen DNP, DEPUTY CORONER This note was completed with [employer] dictation software. Note was reviewed for accuracy. There may be minor misspellings or gr ammar miscues with [employer] Dictation. Lacey Nguyen APN student from [facility] completed initial history and physical exam. I reviewed the note, examined the patient and concur with plan of care. [place] [id number] cnov on 2019-10-06 CNOV Office Visit (FAMPWS) Normal 10-06-[address] [place] [address] [facility] LOVELY DEVI ([id number]) 1945 [facility] Date Time Provider Department ([id number]) 10/06/19 1:40 PM KATH NIELSEN (FAIZA.ELBA) FAMPWS During your visit today, we recorded the following informati on about you: Temperature Pulse Respiration Blood pressure 98.4 degrees 65/minute 14/minute 128/70 Weight 118.8 kg Kath Nielsen DNP.ELBA, GENERAL DENTIST.ELBA 10/06/2019 3:42 PM Signed Chief Complaint Patient [...] was recently admitted and discharged from [facility] for cellulitis to right leg . He [...] of vessel, na tive or graft s/p ID in 1985 - Diverticulosis of colon (without [...] EGD W/O OR W/BRUSH/WASH 02/16/08 EGD inpt [facility] H-pylori negative - EGD W/O OR W/BRUSH/WASH 05/24/15 EGD - EGD W/O OR W/BRUSH/WASH 12/21/2017 Dr. Anthony-repeat 3 years-11/2020 - HEART CATHETERIZATION 12/15/2014 [facility] - see scanned documents - HEART [...] G47.33 327.23 - fax compliance download to [phone] - flash glucose sensor (NuORDERSTYLE ANITRA 14 DAY SENSOR) kit 1 Each [...] mouth once daily. - blood sugar diagnostic (Sensbeat BLOOD GLUCOSE SYSTEM) test strip Use as [...] TOUCH ULTRASO FT LANCETS) lancets Use with SwapBeatsuch Glucometer as directed - Aspirin 81 mg [...] Lacey Nguyen APN Student Kath Nielsen, DNP, DEPUTY CORONER This note was completed with [employer] software. Note was reviewed for accuracy. There may be minor misspellings or gramm ar miscues with [employer] Dictation. Lacey Nguyen APN student from [facility] completed initial history and physical exam. I reviewed the note, examined the patient and concur with plan of care. [place] [id number] Lacey Nguyen APN Student 10/06/2019 2:32 PM [...] For severe symptoms seek care at the [facility] ER. Plan of care, medicaiton side [...] skin Date Reviewed: 10/06/2019 Reviewed by: Kath (Faiza.Pattern Developer) SHANELLE Nielsen.DEPUTY CORONER - Fully Assesse d Reason for Visit: Hematuria [335] Cmt: urine taken but home health 2 weeks ago Primary Visit Diagnosis:Dysuria [R30.0] Other Visit Diagnoses:Microscopic hematuria [R31.29] Type 2 diabetes mellitus with diabetic neuropathy, with long-term current use of insulin (H[facility]) [E11.40, Z79.4] Order(s):UA DIP, URINE (POC) [[id number]] Order #: [id number] ec. #:[id number] nitrofurantoin monohydrate and macrocrystal (MACROBID) 100 m [...] Recorded Encounter Status:Closed by KATH NIELSEN DNP DEPUTY CORONER on 10/06/19 cnpn on 2019-09-28 [facility] Normal 09-28-2019 [facility] LOVELY DEVI ([id number]) 1945 [place] Date Time Provider Department ([id number]) 09/28/19 BLOSSOM (PHARMACIST)BRIJESH During your visit today, we recorded the following informati on about you: ANSHUL SEBASTIAN 09/28/2019 10:53 AM Signed [facility] Ambulatory Pharmacy Anticoagulation [facility] Referring provider: No ref. provider found Lovelyguadalupe Ornelasalmitajenny is a 73 year old year old male patient being evaluated today for anticoagulation Telemanagement visit. Patient is currently on the following anticoagulant Warfarin Labs PT INR (no units) Date Value 11/26/2018 Test sent to [facility]. 10/16/2017 1.8 01/16/2017 Test sent to [facility]. INR (POCT) (no units) Date Value 02/21/2019 [...] Pharmacy Anticoagulation Clinic Pharmacy Anticoagulation Clinic Pager: [phone] Description Patient has 3 mg tablets of [...] on 2019-09-26 CNPN Telephone (FAMPWS) Normal 09-26-2019 [facility] LOVELY DEVI ([id number]) 1945 [place] Date Time Provider Department ([id number]) 09/26/19 MORGAN VALDEZ III During your visit today, we recorded the following informati on about you: Cindi Eastman LPN 09/26/2019 11:56 AM Signed Melany with [facility] just left patient from a wound ch juan on his leg. He was complaining of blood in his underwear and painful urinatio n. Gathered urine samples. Looked good clear to pale. Call with verbal order t o PH: [phone]. She gathered enough urine to do the [...] LPN 09/27/2019 8:14 AM Signed Melany with [facility] is aski ng with verbage await urine results if this means provider is ok with uryinalysis. Call Melany with provider message. Jerilny Vladez III MD 09/27/2019 8:36 AM Signed Yes?please obtain urinalysis FEDERICO Alatorre MD, CMA, [place] 09/27/2019 10:04 AM Signed Melany has been notified. Linwood Carpenter CMA Allergies As of Date: 09/26/2019 Noted Allergy Reaction MORPHINE 02/28/2005 ROCEPHIN (CEFTRIAXONE SODIUM) 06/20/2014 14 - Other: See Com ments Comments: Hot flashes; redness to skin Date Reviewed: 09/16/2019 Reviewed by: Deniz Garsia - Fully Assessed Reason for Visit: [facility] [Other] Prescriptions as of 09/26/2019 Sig: [...] 09/27/19 progress on 2019-08 PROGRESS HNO ID: [id number] Normal 09-16-2019 [facility] Author: Deniz Garsia [place] ([id number]) Service: ? Author Type: Nurse Practitioner Type: Progress Notes Filed: 09/16/2019 2:19 PM Note Text: Chief Complaint Patient presents with: Hospital Follow Up HPI Lovely Devi is a 73 year old male who presents he re today for Hospital Discharge Follow up. ADM [facility] 09/04-09/08/2019 for CHF. Follow[address] Dr. [...] placed on Trazodone 50 mg at hs. [place] leg sx wer e related to CHF [...] after breakfast. He rep orts 7 day fNQ=505, 14 day aWB=702, and 90 day uPM=290. He relates he d oes not feel [...] of vessel, na tive or graft s/p ID in 1985 - Diverticulosis of colon (without [...] Laterality Date - COLONOSCOP W/ OR W/O [facility] SPEC 12/21/2017 Dr. Anthony-repeat 3 years-11/2020 - COLONOSCOPY W/BX 02/21/09 - EGD W/O OR W/BRUSH/WASH EGD - EGD W/O OR W/BRUSH/WASH 02/16/08 EGD inpt [facility] H-pylori negative - EGD W/O OR W/BRUSH/WASH 05/24/15 EGD - EGD W/O OR W/BRUSH/WASH 12/21/2017 Dr. Anthony-repeat 3 years-11/2020 - HEART CATHETERIZATION 12/15/2014 [facility] - see scanned documents - HEART [...] G47.33 327.23 - fax compliance download to [phone] - flash glucose sensor (FREESTYLE ANITRA 14 [...] mouth once daily. - blood sugar diagnostic (Sensbeat BLOOD GLUCOSE SYSTEM) test strip Use as [...] slow healing of venous ulceration. Following with [facility]. 5. Stasis dermatitis with venous ulcer [...] complication, with long-term current use of insulin ([facility]) - ICD9: 250.00, V58.6 7, ICD10: E11.9, [...] TRAZODONE 50 MG TABLET Deniz Garsia, MSN GENERAL DENTIST.DEPUTY CORONER cnov on 2019-09-16 CNOV Office Visit (FAMPWS) Normal 09-16-19 [facility] LOVELY DEVI ([id number]) 1945 [facility] Date Time Provider Department ([id number]) 09/16/19 9:40 AM DENIZ GARSIA During your visit today, we recorded the following informati on about you: Temperature Pulse Respiration Blood pressure 97.9 degrees 68/minute 20/minute 122/70 Deniz Garsia, MSN GENERAL DENTIST.DEPUTY CORONER 09/16/2019 2:19 PM Signed Chief Complaint Patient presents with: Hospital Follow Up HPI Lovely Devi is a 73 year old male who presents he re today for Hospital Discharge Follow up. ADM [facility] 09/04- 020 for CHF. Follows with [...] placed on Trazodone 50 mg at hs. [place] le g sx were related to CHF [...] 82 after breakfast. He reports 7 day nUK=860, 14 day tDY=965, and 90 day aZQ=900. He relates he does not feel the [...] of vessel, na tive or graft s/p ID in 1985 - Diverticulosis of colon (without [...] disease, with long-term current use of insulin ([facility]) 06/15/2017 - Unspecified essential hypertension Previous Surgical History PAST SURGICAL HISTORY Procedure Laterality Date - COLONOSCOP W/ OR W/O [facility] SPEC 12/21/2017 Dr. Anthony-repeat 3 years-11/2020 - COLONOSCOPY W/BX 02/21/09 - EGD W/O OR W/BRUSH/WASH EGD - EGD W/O OR W/BRUSH/WASH 02/16/08 EGD inpt [facility] H-pylori negative - EGD W/O OR W/BRUSH/WASH 05/24/15 EGD - EGD W/O OR W/BRUSH/WASH 12/21/2017 Dr. Anthony-repeat 3 years-11/2020 - HEART CATHETERIZATION 12/15/2014 [facility] - see scanned documents - HEART [...] G47.33 327.23 - fax compliance download to [phone] - flash glucose sensor (FREESTYLE ANITRA 14 [...] mouth once daily. - blood sugar diagnostic (Sensbeat BLOOD GLUCOSE SYSTEM) test strip Use as [...] TOUCH ULTRASO FT LANCETS) lancets Use with SwapBeatsuch Glucometer as directed - Aspirin 81 mg [...] and diastolic CHF (con gestive heart failure) ([facility]) - ICD9: 428.43, 428.0, ICD10: I50.43 (primary diagnosis) -Stable, - Follow up with Cardiology as scheduled. 2. Type 2 diabetes mellitus with st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, with long-term current use of insulin ([facility]) - ICD9: 250.40, 585.3, V58.67, ICD10: E11.22, [...] slow healing of venous ulceration. Following with [facility]. 5. Stasis dermatitis with venous ulcer of lower extremity du e to chronic peripheral venous hypertension ([facility]) - ICD9: 459.31, I CD10: I87.339, L97.909 [...] n, with long-term current use of insulin ([facility]) - ICD9: 250.00, V58.67, ICD10: E11.9, Z79.4 [...] TRAZODONE 50 MG TABLET Deniz Garsia, MSN GENERAL DENTIST.DEPUTY CORONER Referring Provider: SELF [[id number]] Allergies As of Date: 09/16/2019 Noted Allergy Reaction MORPHINE 02/28/2005 ROCEPHIN (CEFTRIAXONE SODIUM) 06/20/2014 14 - Other: See Com ments Comments: Hot flashes; redness to skin Date Reviewed: 09/16/2019 Reviewed by: Deniz Garsia - Fully Assessed Reason for Visit: Hospital Follow Up [177] Primary Visit Diagnosis: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) ([facility]) [I50.43] Other Visit Diagnoses:Type 2 diabetes mellitus with st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, with long-term current use of insulin ([facility]) [E11.22, N18.3, Z79.4] Essential hypertension [I10] Cellulitis of right lower extremity [L03.115] Stasis 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 ([facility]) [I87.339, L97.909] Closed nondisplaced fracture of fifth metatarsal bone of left foot with routine healing, subsequent encounter [S92.020D] Controlled type 2 diabetes mellitus without complication, with long-term current use of insulin ([facility]) [E11.9, Z79.4] Vitamin D 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] Sleep [...] TO AMBULATORY CLINIC PHARMACY [[id number]] Order #: [id number]: 1 VITAMIN D 25 HYDROXY [SQVITD] Order #: [id number] FUTURE Cholecalciferol, Vitamin D3, 50 mcg (2,000 [...] E-Cancel Cosign accepted by MORGAN VALDEZ III, MD[[id number]] on 06/25/19 17 6:04 PM Melatonin 5 [...] on 2019-09-14 CNPN Telephone (FAMPWS) Normal 09-14-2019 [facility] LOVELY DEVI ([id number]) 1945 [place] Date Time Provider Department ([id number]) 09/14/19 [facility] your visit today, we recorded the following informati on about you: Kaitlin King LPN 09/14/2019 4:10 PM Signed Manda from [facility] Home health calling did visit one time caroli christy delgado for OT patient doing well educated suing bo, famil y will follow through and get one for his use. Deniz Garsia, MSN GENERAL DENTIST.DEPUTY CORONER 09/15/2019 7:26 AM Signed Noted. Deniz Garsia, MSN GENERAL DENTIST.DEPUTY CORONER Allergies As of Date: 09/14/2019 Noted Allergy Reaction MORPHINE 02/28/2005 ROCEPHIN (CEFTRIAXONE SODIUM) 06/20/2014 14 - Other: See Com ments Comments: Hot flashes; redness to skin Date Reviewed: 04/28/2019 Reviewed by: Lin[place] ([facility]) JAZZY Carpenter - Fully Assessed Reason for [...] mouth once ajay * LANCETS Use with SwapBeatsuch Glucometer * ASPIRIN 81 MG TABLET Take [...] 09/15/19 progress on 2019-08 PROGRESS HNO ID: [id number] Normal 09-12-2019 [facility] Author: Jeffy Fontenot ([facility] ([id number]) Service: ? Author Type: Registered Nurse Type: Progress Notes Filed: 09/12/2019 3:17 PM Note Text: HIGH RISK CHRONIC DISEASE MONITORING Provider Action/FYI: Spk with Pt who noted was Admitted to [facility] 09/04-09/08/19 for Dx : CHF Pt has a scheduled f/u with Cardiology Dr. Perry 10/07/19. Pt has Appt 09/16/19 with Maryellen Garsia CNP Pt has active My Chart and is interested in Photographic Spotter Contact made with patient: Yes Patient identified by name and . Discussed care with patient Hi my name is Corie Bardales, DRAGAN and I am calling from [facility] on behalf of your PCP, [...] like to speak with a social work [employer] sales and lending team member to help give you support for any of these needs? No It can be normal to feel anxious or down during a time like this. Would you like to talk to a mental health professional about how y ou have been feeling? No ACTION TAKEN: No action taken CONFIGURATION MANAGEMENT ADMINISTRATOR: Patient MyChart status is: Active account Thank [...] dipti l be sent to you via [employer] once a week for the next few weeks to months . Aelurost is the best way for us to [...] questionnaire will come to you through your One[employer]Net acco unt and will replace the need for us to call you each week. May I sign yo u up for this? Yes Great! I've set you up to receive the weekly questionnaire. In the meantime, if you have concerns in between our calls, please call your PCP's office right away. Thank you. ACTION TAKEN: Signed patient up for weekly Photographic Spotter questionnaire - Entered next patient outreach date [...] CNPTOUTREACH Patient Outreach (FAMPWS) Normal 0 09-12-2019 [facility] LOVELY DEVI ([id number]) 1945 [facility] Date Time Provider Department ([id number]) 09/12/19 JEFFY FONTENOT (RN) FAMPWS During your visit today, we recorded the following informati on about you: Corie Bardales RN 09/12/2019 3:17 PM Signed HIGH RISK CHRONIC DISEASE MONITORING Provider Action/FYI: Spk with Pt who noted was Admitted to [facility] 09/04-09/08/19 for Dx : CHF Pt has a scheduled f/u with Cardiology Dr. Perry 10/07/19. Pt has Appt 09/16/19 with Maryellen Garsia CNP Pt has active My Chart and is interested in Photographic Spotter Contact made with patient: Yes Patient identified by name and . Discussed care with patient Hi my name is Corie Bardales RN and I am calling from the [facility] on behalf of your PCP, [...] like to speak with a social work [employer] sales and lending team member to help give you support for any of these needs? No It can be normal to feel anxious or down during a time lik e this. Would you like to talk to a mental health professional abo ut how you have been feeling? No ACTION TAKEN: No action taken CONFIGURATION MANAGEMENT ADMINISTRATOR: Patient Rodneyhart status is: Active account Thank you for taking the time to talk with me to day. We want to work with you to ensure that we are keeping your medical conditions well-controlled and to keep you healthy and out of the doctor's office or [facility]. Our team would like to stay connected with you to make sure you are feeling well. I am inviting you to complete a short questionnaire th at will be sent to you via One[employer]Net once a week for the next few weeks t o months. One[employer]Net is the best way for us to [...] questionnaire will come to you through your OneMedNet account and will re place the need for us to call you each week. May I sign you up for this? Yes Great! I've set you up to receive the weekly questionn shemar. In the meantime, if you have concerns in between our call s, please call your PCP's office right away. Thank you. ACTION TAKEN: Signed patient up for weekly Photographic Spotter questionnaire - Entered next patient outreach date [...] skin Date Reviewed: 04/28/2019 Reviewed by: Linwood ([facility]) JAZZY Carpenter - Fully Assessed Reason for [...] Encounter Status:Closed by CORIE BARDALES on 09/12/19 [facility] on 2019-09-09 [facility]) Normal 09-09-2019 [facility] LOVELY DEVI ([id number]) 1945 [facility] Date Time Provider Department ([id number]) 09/09/19 [facility] During your visit today, we recorded the following informati on about you: Tasha Chan RN 09/09/2019 1:04 PM [facility]igned [facility] P[facility]: nursing will see patient 2 x's week for 9 weeks, for wound care, medication education, and dis ease process teaching. Reports his discharge instructions from hospital, have 2 meds on list, patient reports he hasn't taken in a long time: colestid 1 g bid, and tricor [address] Perry is his gantry rigger. Morgan Valdez III MD 09/09/2019 5:58 PM Signed Noted Morgan Valdez III, , FAAFP Allergies As of Date: 09/09/2019 Noted Allergy Reaction MORPHINE 02/28/2005 ROCEPHIN (CEFTRIAXONE SODIUM) 06/20/2014 14 - Other: See Com ments Comments: Hot flashes; redness to skin Date Reviewed: 04/28/2019 Reviewed by: Linwood ([facility]) JAZZY Carpenter - Fully Assessed Reason for Visit: [facility] POC [Other] Prescriptions as of 09/09/2019 [...] mouth once ajay * LANCETS Use with SwapBeatsuch Glucometer * ASPIRIN 81 MG TABLET Take [...] III, MD on 09/09/19 yoandy on 2019-09-08 [facility] ([facility]AM[facility] Normal 09-08-2019 [facility] LOVELY DEVI ([id number]) 1945 [place] Date Time Provider Department ([id number]) 09/08/19 MORGAN VALDEZ III During your visit today, we recorded the following informati on about you: Cindi Eastman LPN 09/08/2019 2:43 PM Signed Melany with [facility] calling to let you know cammie rodriguez being d/c from [facility] today and needs to be followed with nursing, OT and PT. Asking i f you will follow and sign. Please advise Melany. Cindi Valdez III MD 09/08/2019 2:45 PM Signed yes--I will follow FEDERICO Alatorre MD, LPN 09/08/2019 4:42 PM Signed Melany advised of Dr Valdez's verbal orders. Sherill A Hamb el FEATHER CURLING 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 Allergies As of Date: 09/08/2019 Noted Allergy Reaction MORPHINE 02/28/2005 ROCEPHIN (CEFTRIAXONE SODIUM) 06/20/2014 14 - Other: See Com ments Comments: Hot flashes; redness to skin Date Reviewed: 04/28/2019 Reviewed by: Linwood ([facility]) JAZZY Carpenter - Fully Assessed Reason for Visit: [facility] orders [Other] Prescriptions as of 09/08/2019 [...] heart fail*12/17/2018 Encounter Status:Closed by EUFEMIA MAURICE FEATHER CURLING 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 on 09/08/19 cnpn on 2019-09-07 [facility] Normal 09-07-2019 [facility] LOVELY DEVI ([id number]) 1945 [place] Date Time Provider Department ([id number]) 09/07/19 BLOSSOM (PHARMACIST)BRIJESH During your visit today, [...] said he was going to go to [facility]. Dipti marks monitor for an update on the patient and updated INR. Joleen Cerrato, PharmD ANSHUL SEBASTIAN 09/14/2019 9:32 AM Signed [facility] Ambulatory Pharmacy Anticoagulation Clinic Referring provider: No ref. provider found Lovely Devi is a 73 year old year old male patient being evaluated today for anticoagulation Telemanagement visit. Patient is currently on the following anticoagulant Warfarin Labs PT INR (no units) Date Value 11/26/2018 Test sent to [facility]. 10/16/2017 1.8 01/16/2017 Test sent to [facility]. INR (POCT) (no units) Date Value 02/21/2019 [...] ? Pt was recently discharged from [facility]. According to Epic note - he was [...] Pharmacy Anticoagulation Clinic Pharmacy Anticoagulation Clinic Pager: [phone] Description Patient has 3 mg tablets of warfarin. Patient takes in the m orning. . Chencho Helms (Fiberglass Luggage Molder) 09/14/2019 11:06 AM Signed Patient returned call and is requesting pharmaci st to contact patient after 2 pm today as he is currently not home. Patient can be reached at [phone]. Chencho Helms, Property Handler (plastic boat buffer) Pharmacy Anticoagulation Clinic JOLEEN CERRATO, PHARMACIST 09/14/2019 [...] skin Date Reviewed: 04/28/2019 Reviewed by: Linwood ([facility]) JAZZY Carpenter - Fully Assessed Reason for [...] on progress on 2019-08 PROGRESS HNO ID: [id number] Normal 09-05-2019 [facility] Author: Staci Almazan MD [place] ([id number]) Service: ? Author Type: Physician Type: Progress Notes Filed: 09/05/2019 3:49 PM Note Text: Virtualist Community Monitoring Note: Adult seen for Monitoring Track: High Risk Chronic Disease Management Contacted by phone, [employer], [employer], SkK[employer]te, Zoom, kooaba ity, [employer], other: phone I [...] in EMR. PMH (I reviewed epic, [facility]) includes NSTEMI, ASHD, isch emic cardiomyopathy, [...] The said she would take him to [facility]. I called the [facility] ED [phone] and spoke to charge nurse Cristina and [...] Agudelo wilfredo DATE: September 05, 2019 PAGER/CONTACT: [phone] PROGRESS HNO ID: [id number] Normal 09-05-2019 [facility] Author: Jeffy Fontenot (Dragan) [place] ([id number]) Service: ? Author Type: Registered Nurse Type: [...] Bardales RN and I am calling from [facility] on behalf of your PCP, [...] - routed to RX CLINICAL TRIAGE pool #[id number] and noted symptoms in the FYI box - Informed patient that you re commend further assessment from a provider to review symptoms. End O [facility] / Phone Call Outreach Ended Corie Bardales RN September 05, 2019 1:54 PM PROGRESS HNO ID: [id number] Normal 09-05-2019 [facility] Author: Faye Lara (Pharmacist) [place] ([id number]) Service: ? Author Type: Pharmacist Type: Progress Notes Filed: 09/05/2019 2:23 PM Note Text: Called patient to clarify. He reports significant SOB, barel y can make it to the bathroom. This is new for him. Will page elijahist stella fraser and route high priority to address today. Faye Lara, PharmD, BCACP Primary Care Pharmacist [facility] Patient Outreach (FAMPWS) Normal 0 09-05-2019 [place] [facility] LOVELY DEVI ([id number]) 1945 [facility] Date Time Provider Department ([id number]) 09/05/19 JEFFY FONTENOT (RN) FAMPWS During your [...] RN and I am calling from the [facility] on behalf of your PCP, [...] - routed to RX CLINICAL TRIAGE pool #[id number] and noted symptoms in the FYI box [...] skin Date Reviewed: 04/28/2019 Reviewed by: Linwood ([facility]) JAZZY Carpenter - Fully Assessed Reason for [...] mouth once ajay * LANCETS Use with SwapBeatsuch Glucometer * ASPIRIN 81 MG TABLET Take [...] OBSOLETE Refill (PHAMTE) Normal 08-31-2019 Jose chapin [facility] LOVELY DEVI ([id number]) 1945 M [place] Date Time Provider Department ([id number]) 08/31/19 MORGAN VALDEZ III During your visit [...] skin Date Reviewed: 04/28/2019 Reviewed by: Linwood ([facility]) JAZZY Carpenter - Fully Assessed Reason for [...] Normal 08-27-2019 [facility] LOVELY DEVI ([id number]) 1945 M [place] Date Time Provider Department ([id number]) 08/27/19 DENIZ GARSIA During your visit today, [...] skin Date Reviewed: 04/28/2019 Reviewed by: Linwood ([facility]) JAZZY Carpenter - Fully Assessed Reason for [...] mouth once ajay * LANCETS Use with SwapBeatsuch Glucometer * ASPIRIN 81 MG TABLET Take [...] on 2019-08-26 CNPN Telephone (NRSLME) Normal 08-26-2019 [place] [facility] MERCEDESLOVELY Quincy ([id number]) 1945 [facility] Date Time Provider Department ([id number]) 08/26/19 ARIANA BERNAL ([facility]) NRSE During your visit today, we [...] skin Date Reviewed: 04/28/2019 Reviewed by: Linwood ([facility]) JAZZY Carpenter - Fully Assessed Reason for [...] on 2019-08-24 ELBAN Telephone (VAHE) Normal 08-24-2019 [place] [facility] LOVELY DEVI ([id number]) 1945 M [place] Date Time Provider Department () 08/24/19 ANDRE (PHARMACIST)LEE During your visit today, we recorded the following informati on about you: Allergies As of Date: 08/24/2019 Noted Allergy Reaction MORPHINE 02/28/2005 ROCEPHIN (CEFTRIAXONE SODIUM) 06/20/2014 14 - Other: See Com ments Comments: Hot flashes; redness to skin Date Reviewed: 04/28/2019 Reviewed by: Linwood ([facility]) JAZZY Carpenter - Fully Assessed Reason for [...] on progress on 2019-07 PROGRESS HNO ID: [id number] Normal 08-23-2019 [facility] Author: Linwood Fowler) JAZZY Carpenter [place] ([id number]) Service: ? Author Type: Composing Room Machinist Type: Progress Notes Filed: 08/23/2019 4:03 PM Note Text: Patient notified, voiced understanding. Linwood Carpenter CMA PROGRESS HNO ID: [id number] Normal 08-23-2019 [facility] Author: Morgan Valdez III [place] ([id number]) Service: ? Author Type: Physician Type: Progress Notes Filed: 08/23/2019 3:19 PM Note Text: Staff, Please notify patient that the Covid 19 test obtained on 07/28 12/17 resulted in no detection of the virus. It was negative. He should report persistent or worsening symptoms of Covid 1 9. Morgan Valdez III, MD, FAAFP Morgan Valdez III, MD, FAA PROGRESS HNO ID: [id number] Normal 08-23-2019 [facility] Author: Linwood Fowler) JAZZY Carpenter [place] ([id number]) Service: ? Author Type: Composing Room Machinist Type: Progress Notes Filed: 08/23/2019 3:14 PM Note Text: Printed, placed on PCP's desk. Linwood Carpenter CMA PROGRESS HNO ID: [id number] Normal 08-23-2019 [facility] Author: Morgan Valdez III [place] ([id number]) Service: ? Author Type: Physician Type: Progress Notes Filed: 08/23/2019 12:34 PM Note Text: Staff, Please check [facility] to obtain Covid 19 results Morgan Valdez III MD PROGRESS HNO ID: [id number] Normal 08-23-2019 [facility] Author: Cara Zhang LPN [place] ([id number]) Service: ? Author Type: ? Type: Progress [...] BRICE and I am calling from the [facility] on behalf of your PCP, [...] - routed to RX CLINICAL TRIAGE pool #[id number] and noted symptoms in the FYI box - Informed patient that you re commend further assessment from a provider to review symptoms. End O atif / Phone Call cnptoutreach on CNPTOUTREACH Patient Outreach (AMBCMG) Normal 0 08-23-2019 [place] [facility] LOVELY DEVI ([id number]) 1945 [facility] Date Time Provider Department ([id number]) 08/23/19 MORGAN VALDEZ III During your visit [...] LPN and I am calling from the [facility] on behalf of your PCP, [...] - routed to RX CLINICAL TRIAGE pool #[id number] and noted symptoms in the FYI box - Informed patient that you recommend further assessment from a provider to review symptoms. End Outreach / Phone Call Morgan Valdez III MD 08/23/2019 12:34 PM Signed Staff, Please check [facility] to obtain Covid 19 results FEDERICO Alatorre [...] 08/23/19 progress on 2019-07 PROGRESS HNO ID: [id number] Normal 08-12-2019 [facility] Author: John Suazo RN [place] ([id number]) Service: ? Author Type: ? Type: Progress Notes Filed: 08/12/2019 11:57 AM Note Text: HIGH RISK CHRONIC DISEASE MONITORING Provider Action/FYI: Contact made with patient: Yes Patient identified by name and . Discussed care with patient Hi my name is John Suazo RN and I am calling from the [facility] on behalf of your PCP, Morgan Valdez [...] like to speak with a social work ezpawn sales and lending team member to help give you support for any [...] and out of the doctor's office or [facility]. Our team would like to stay [...] CNPTOUTREACH Patient Outreach (FAMPWS) Normal 0 08-12-2019 [place] [facility] LOVELY DEVI ([id number]) 1945 M [place] Date Time Provider Department ([id number]) 08/12/19 JOHN SUAZO (RN) FAMPWS During your visit today, we recorded the following informati on about you: John Suazo RN 08/12/2019 11:57 AM Signed HIGH RISK CHRONIC DISEASE MONITORING Provider Action/FYI: Contact made with patient: Yes Patient identified by name and . Discussed care with patient Hi my name is John Suazo RN and I am calling from the [facility] on behalf of your PCP, FEDERICO Alatorre [...] like to speak with a social work ezpawn sales and lending team member to help give you support for any of these needs? No It can be normal to feel anxious or down during a time lik e this. Would you like to talk to a mental health professional abo ma how you have been feeling? No ACTION TAKEN: No action taken Thank you for taking the time to talk with me to day. We want to work with you to ensure that we are keeping your medical conditions well-controlled and to keep you healthy and out of the doctor's office or [facility]. Our team would like to stay [...] skin Date Reviewed: 04/28/2019 Reviewed by: Linwood ([facility]) JAZZY Carpenter - Fully Assessed Reason for [...] on 2019-08-11 CNPN Telephone (NEMOWS) Normal 08-11-2019 [place] [facility] LOVELY DEVI ([id number]) 1945 M [place] Date Time Provider Department ([id number]) 08/11/19 ARIANA BERNAL (ELBA) NEMOWS During your [...] skin Date Reviewed: 04/28/2019 Reviewed by: Linwood ([facility]) JAZZY Carpenter - Fully Assessed Reason for [...] DONNA JOSE LPN on 08/11/19 CNPN Telephone (Viddsee) Normal 08-11-2019 [facility] LOVELY DEVI ([id number]) 1945 M [place] Date Time Provider Department ([id number]) 08/11/19 ANUP (PHARMACIST)FAHEEM During your visit today, we recorded the following informati on about you: Anshul Almeida 08/11/2019 4:20 PM Addendum Error Julian Espinosa, PharmD Allergies As of Date: 08/11/2019 Noted Allergy Reaction MORPHINE 02/28/2005 ROCEPHIN (CEFTRIAXONE SODIUM) 06/20/2014 14 - Other: See Com ments Comments: Hot flashes; redness to skin Date Reviewed: 04/28/2019 Reviewed by: Linwood ([facility]) JAZZY Carpenter - Fully Assessed Reason for [...] on 2019-08-10 CNPN Telephone (INTMMN) Normal 08-10-2019 [place] [facility] LOVELY DEVI ([id number]) 1945 M [place] Date Time Provider Department ([id number]) 08/10/19 ANGIE (PHARMACIST)ALEXIA During your visit today, [...] mouth once ajay * LANCETS Use with SwapBeatsuch Glucometer * ASPIRIN 81 MG TABLET Take [...] on progress on 2019-07 PROGRESS HNO ID: [id number] Normal 08-05-2019 [facility] Author: John Suazo RN [place] ([id number]) Service: ? Author Type: ? Type: Progress Notes Filed: 08/05/2019 3:25 PM Note Text: HIGH RISK CHRONIC DISEASE MONITORING Provider Action/FYI: Contact made with patient: Yes Patient identified by name and . Discussed care with patient Hi my name is John Suazo RN and I am calling from the [facility] on behalf of your PCP, Morgan Valdez [...] like to speak with a social work ezpawn sales and lending team member to help give you support for any [...] and out of the doctor's office or [facility]. Our team would like to stay [...] Outreach section. cnptoutreach on CNPTOUTREACH [facility] Normal 0 08-05-2019 [place] [facility] LOVELY DEVI ([id number]) 1945 M [place] Date Time Provider Department ([id number]) 08/05/19 JOHN SUAZO (RN) RENEEWS During your visit today, we recorded the following informati on about you: John Suazo RN 08/05/2019 3:25 PM Signed HIGH RISK CHRONIC DISEASE MONITORING Provider Action/FYI: Contact made with patient: Yes Patient identified by name and . Discussed care with patient Hi my name is John Suazo RN and I am calling from the [facility] on behalf of your PCP, FEDERICO Alatorre [...] like to speak with a social work ezpawn sales and lending team member to help give you support for any [...] and [facility] Our team would like to [...] skin Date Reviewed: 04/28/2019 Reviewed by: Linwood ([facility]) JAZZY Carpenter - Fully Assessed Reason for [...] on 08/05/19 cnpn on 2019-08-02 CNPN Telephone ([facility]) Normal 08-02-2019 [place] [facility] LOVELY DEVI ([id number]) 1945 M [facility] Time Provider Department ([id number]) 08/02/19 MORGAN VALDEZ III During your visit [...] Dr. Merritt wants h im only on arzt-scc-owadxrw pain medication, then t he patient should [...] 08/02/19 progress on 2019-07 PROGRESS HNO ID: [id number] Normal 07-29-2019 [facility] Author: Vera (Network Navigator) Nakul [place] ([id number]) Service: ? Author Type: Composing Room Machinist Type: Progress Notes Filed: 07/29/2019 3:10 PM Note Text: HIGH RISK CHRONIC DISEASE MONITORING Provider Action/FYI: Dr. Valdez- pt needs refill of Lasix 40 mg. Please send to [facility] in [place]. Contact made with patient: Yes Patient identified by name and . Discussed care with patient Hi my name is Vera Mota, NETWORK NAVIGATOR and I am callin g from the [facility] on behalf of your PCP, [...] like to speak with a social work ezpawn sales and lending team member to help give you support for any [...] CNPTOUTREACH Patient Outreach (FAMPWS) Normal 0 07-29-2019 [place] [facility] LOVELY DEVI ([id number]) 1945 M [place] Date Time Provider Department ([id number]) 07/29/19 VERA MOTA (NETWORK NAVIGATOR)FAMPWS During your visit today, we recorded the following informati on about you: RIKY High NAVIGATOR 07/29/2019 3:10 PM Signed HIGH RISK CHRONIC DISEASE MONITORING Provider Action/FYI: Dr. Valdez- pt needs refill of Lasix 40 mg. Please send to [facility] in [place]. Contact made with patient: Yes Patient identified by name and . Discussed care with patient Hi my name is Vera DuncanRIKY mathew NAVIGATOR and I am callin g from the [facility] on behalf of your PCP, [...] like to speak with a social work e[employer]pa[employer] sales and lending team member to help give you support for any [...] skin Date Reviewed: 04/28/2019 Reviewed by: Linwood ([facility]) JAZZY Carpenter - Fully Assessed Reason for [...] on 07/29/19 elban on 2019-07-27 ELBAN Telephone ([facility]) Normal 07-27-2019 [facility] LOVELY DEVI ([id number]) 1945 M [place] Date Time Provider Department () 07/27/19 BLOSSOM (PHARMACIST)BRIJESH During your visit today, we recorded the following informati on about you: JOLEEN CERRATO PHARMACIST 07/27/2019 11:08 AM Signed [employer] message sent for INR at [facility]. Joleen Cerrato PharmD Allergies As of Date: 07/27/2019 Noted Allergy Reaction MORPHINE 02/28/2005 ROCEPHIN (CEFTRIAXONE SODIUM) 06/20/2014 14 - Other: See Com ments Comments: Hot flashes; redness to skin Date Reviewed: 04/28/2019 Reviewed by: Linwood ([facility]) JAZZY Carpenter - Fully Assessed Reason for [...] on progress on 2019-06 PROGRESS HNO ID: [id number] Normal 07-21-2019 [facility] Author: Becky Garibay [facility] ([id number]) Service: ? Author Type: ? Type: Progress Notes Filed: 07/21/2019 3:21 PM Note Text: HIGH RISK CHRONIC DISEASE MONITORING Provider Action/FYI: Patient states no concerns Contact made with patient: Yes Patient identified by name and . Discussed care with patient Hi my name is Becky Garibay [facility] and I am calling from [facility] on behalf of your PCP, [...] like to speak with a social work ezpa[employer] sales and lending team member to help give you support for any [...] [facility] team would like to stay [...] CNPTOUTREACH Patient Outreach (FAMPWS) Normal 0 07-21-2019 [place] [facility] LOVELY DEVI ([id number]) 1945 [facility] Date Time Provider Department ([id number]) 07/21/19 MORGAN VALDEZ III During your visit today, we recorded the following informati on about you: Becky Garibay Pss 07/21/2019 3:21 PM Signed HIGH RISK CHRONIC DISEASE MONITORING Provider Action/FYI: Patient states no concerns Contact made with patient: Yes Patient identified by name and . Discussed care with patient Hi my name is Becky Garibay Pss and I am calling from the [facility] on behalf of your PCP, [...] like to speak with a social work ezpa[employer] sales and lending team member to help give you support for any [...] and out of the doctor's office or [facility]. Our team would like to stay [...] skin Date Reviewed: 04/28/2019 Reviewed by: Linwood ([facility]) JAZZY Carpenter - Fully Assessed Reason for [...] mouth once ajay * LANCETS Use with OneAcadiaSoftuch Glucometer * ASPIRIN 81 MG TABLET Take [...] on 2019-06 OBSOLETE Refill (FAMPWS) Normal 07-18-2019 [facility] LOVELY DEVI ([id number]) 1945 [facility] Time Provider Department ([id number]) 07/18/19 MORGAN VALDEZ III FAMPWS During your [...] Please advise. Thank you. Cindi Garsia, MSN GENERAL DENTIST.DEPUTY CORONER 07/19/2019 8:10 AM Signed The following approved medic ation requests have been transmitted electronically. Signed Prescriptions Disp Refills Insulin Syringe-Needle U-100 (BD ULTRAFINE INSULIN) 1 mL 31 gauge x 5/16 450 Each 3 Si Each five times daily. ZBIGNIEW: No Authorizing Provider: DENIZ GARSIA, MSN GENERAL DENTIST.DEPUTY CORONER Allergies As of Date: 07/18/2019 Noted Allergy Reaction MORPHINE 02/28/2005 ROCEPHIN (CEFTRIAXONE SODIUM) 06/20/2014 14 - Other: See Com ments Comments: Hot flashes; redness to skin Date Reviewed: 04/28/2019 Reviewed by: Linwood ([facility]) JAZZY Carpenter - Fully Assessed Reason for [...] on file. Encounter Status:Closed by DENIZ GARSIA DEPUTY CORONER on 07/19/19 OBSOLETE Refill (FAMPWS) Normal 07-18-2019 [facility] LOVELY DEVI ([id number]) 1945 [facility] Date Time Provider Department ([id number]) 07/18/19 DENIZ GARSIAPWS During your visit today, [...] skin Date Reviewed: 04/28/2019 Reviewed by: Linwood ([facility]) JAZZY Carpenter - Fully Assessed Reason for [...] mouth once ajay * LANCETS Use with SwapBeatsuch Glucometer * ASPIRIN 81 MG TABLET Take [...] on 07/19/19 cnpn on 2019-07-13 CNPN Telephone ([facility]) Normal 07-13-2019 [place] [facility] LOVELY DEVI ([id number]) 1945 M [place] Date Time Provider Department ([id number]) 07/13/19 BLOSSOM (PHARMACIST)BRIJESH During your visit today, [...] skin Date Reviewed: 04/28/2019 Reviewed by: Linwood ([facility]) JAZZY Carpenter - Fully Assessed Reason for [...] mouth once ajay * LANCETS Use with SwapBeatsuch Glucometer * ASPIRIN 81 MG TABLET Take [...] on progress on 2019-06 PROGRESS HNO ID: [id number] Normal 06-30-2019 [facility] Author: Deniz Am[place] ([id number]) Service: ? Author Type: Nurse Practitioner Type: Progress Notes Filed: 07/01/2019 11:35 AM Note Text: Noted. Deniz Garsia, MSN GENERAL DENTIST.DEPUTY CORONER progress on 2019-06 PROGRESS HNO ID: [id number] Normal 06-29-2019 [place] Author: Jeffy Fontenot (Rn) Clinic Service: ? [place] Author Type: Registered Nurse ([id number]) Type: Progress Notes Filed: 07/01/2019 11:35 AM [...] concern s Pt reports will f/u with [facility] Cardiology is 6 mths ( Please s ee #6 below: his recent ICD evaluation showed 1 nonsustained VT episode) [facility] 05/30/19 Cardiology Appt with Francis Kwok NP [facility] 06/08/19 ICD Pacemaker Interrogation completed 05/30/19 OV Francis Kwok NP / [facility] Addendum Excerpt noted: Assessment AND Plan 1. 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 Corie Bardales RN June 29, 2019 12:10 PM Corie Bardales RN June 29, 2019 6:57 PM PROGRESS HNO ID: [id number] Normal 06-29-2019 [place] Author: Jeffy Fontenot (Rn) Clinic Service: ? [place] Author Type: Registered Nurse ([id number]) Type: Progress Notes Filed: 07/01/2019 11:35 AM [...] SAMREEN Patient Outreach (FAMPWS) Normal 0 06-29-2019 [place] [facility] LOVELY DEVI ([id number]) 1945 [facility] Date Time Provider Department ([id number]) 06/29/19 JEFFY FONTENOT (RN) FAMPWS During your [...] concern s Pt reports will f/u with [facility] Cardiology is 6 mths ( Pl ease see #6 below: his recent ICD evaluation showed 1 nonsustained VT episode) - [facility] 05/30/19 Cardiology Appt with Francis Kwok NP [facility] 06/08/19 ICD Pacemaker Interrogation completed 05/30/19 OV Francis Kwok NP / [facility] Addendum Excerpt noted: Assessment AND Plan 1. Atherosclerotic heart disease of [place] coronary artery with other forms of angina pectoris I25.118 OET-Zlvfw-Kmv Cx; PCI-Cutting Balloon Angioplasty of ISR-ost ium [...] History of coronary artery stent placement Z95.5 WYJ-Vhoam-FH5; PCI-Cutting Balloon Angioplasty of ISR-ostium of prox OM1 11/22/02; PCI-stent to proximal OM1 01/2008; PCI- OOG-QNY-Aelb OM1 w/ 2.5 x 12 mm Promus [...] Orders Orders: 12 Lead EKG performed by [facility] Today 6. Nonsustained ventricular tachycardia I47.2 Plan [...] 2 Weeks (Funmilayo- Remote check) 6 Months (BODS DEVELOPER) Patient identified by name and date . Corie Bardales RN June 29, 2019 12:10 PM Corie Bardales RN June 29, 2019 6:57 PM LEATHA Kebede GENERAL DENTIST.ELBA 07/01/2019 11:35 AM Signed Noted. 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 Chronic Care [[id number]] Cmt: PCC Upda te/ PCC Discharge Reason [...] mouth once ajay * LANCETS Use with SwapBeatsuch Glucometer * ASPIRIN 81 MG TABLET Take [...] on 07/01/19 cnpn on 2019-06-29 CNPN Telephone (InGaugeItV) Normal 06-29-2019 [facility] LOVELY DEVI ([id number]) 1945 M [facility] Time Provider Department ([id number]) 06/29/19 BLOSSOM (PHARMACIST)SHARIF During your visit today, we recorded the following informati on about you: ANSHUL SEBASTIAN 06/29/2019 9:31 AM Signed [facility] Ambulatory [facility] Anticoagulation [facility] Referring provider: No ref. provider found Lovely Devi is a 73 year old year old male patient being evaluated today for anticoagulation Telemanagement visit. Patient is currently on the following anticoagulant Warfarin Labs PT INR (no units) Date Value 11/26/2018 Test sent to [facility]. 10/16/2017 1.8 01/16/2017 Test sent to [facility]. INR (POCT) (no units) Date Value 02/21/2019 [...] Pharmacy Anticoagulation Clinic [facility] Pager: [phone] Description Patient has 3 mg tablets of warfarin. Patient takes in the m orning. . Allergies As of Date: 06/29/2019 Noted Allergy Reaction MORPHINE 02/28/2005 ROCEPHIN (CEFTRIAXONE SODIUM) 06/20/2014 14 - Other: See Com ments Comments: Hot flashes; redness to skin Date Reviewed: 04/28/2019 Reviewed by: Linwood ([facility]) JAZZY Carpenter - Fully Assessed Reason for [...] on 2019-06-27 CNPN Telephone (FAMPWS) Normal 06-27-2019 [place] [facility] LOVELY DEVI ([id number]) 1945 [facility] Date Time Provider Department ([id number]) 06/27/19 MORGAN VALDEZ III FAMPWS During your [...] skin Date Reviewed: 04/28/2019 Reviewed by: Linwood ([facility]) JAZZY Carpenter - Fully Assessed Reason for [...] Normal 06-25-2019 [facility] LOVELY DEVI ([id number]) 1945 M [place] Date Time Provider Department ([id number]) 06/25/19 MORGAN VALDEZ III FAMPWS During your visit today, we recorded the following informati on about you: Allergies As of Date: 06/25/2019 Noted Allergy Reaction MORPHINE 02/28/2005 ROCEPHIN (CEFTRIAXONE SODIUM) 06/20/2014 14 - Other: See Com ments Comments: Hot flashes; redness to skin Date Reviewed: 04/28/2019 Reviewed by: Linwood ([facility]) JAZZY Carpenter - Fully Assessed Reason for [...] mouth once ajay * LANCETS Use with [employer] Glucometer * ASPIRIN 81 MG TABLET Take [...] on 06/27/19 cnpn on 2019-06-15 CNPN Telephone ([facility]) Normal 06-15-2019 [place] [facility] LOVELY DEVI ([id number]) 1945 M [facility] Time Provider Department ([id number]) 06/15/19 BLOSSOM (PHARMACIST)BRIJESH During your visit today, we recorded the following informati on about you: JOLEEN CERRATO, PHARMACIST 06/15/2019 10:12 AM Signed Tried pt twice but it kept ringing with no answer. Will attempt him later today. Joleen Cerrato, PharmD Pharm[facility] Anshul Dailey 06/15/2019 3:15 PM Signed [facility] Referring provider: No ref. provider found Lovely Devi is a 73 year old year old male patient being evaluated today for anticoagulation Telemanagement visit. Patient is currently on the following anticoagulant Warfarin Labs PT INR (no units) Date Value 11/26/2018 Test sent to [facility]. 10/16/2017 1.8 01/16/2017 Test sent to [facility]. INR (POCT) (no units) Date Value 02/21/2019 [...] Pharmacy Anticoagulation Clinic Pharm[facility] Pager: [phone] Description Patient has 3 mg tablets of warfarin. Patient takes in the m orning. . Allergies As of Date: 06/15/2019 Noted Allergy Reaction MORPHINE 02/28/2005 ROCEPHIN (CEFTRIAXONE SODIUM) 06/20/2014 14 - Other: See Com ments Comments: Hot flashes; redness to skin Date Reviewed: 04/28/2019 Reviewed by: Linwood ([facility]) JAZZY Carpenter - Fully Assessed Reason for [...] mouth once ajay * LANCETS Use with [employer] Glucometer * ASPIRIN 81 MG TABLET Take [...] (PHARMACIST)LACEY on cnpn on 2019-05-25 CNPN Telephone ([facility]) Normal 05-25-2019 [place] [facility] LOVELY DEVI ([id number]) 1945 M [place] Date Time Provider Department ([id number]) 05/25/19 BLOSSOM (PHARMACIST)BRIEJSH During your visit today, we recorded the following informati on about you: JOLEEN CERRATO PHARMACIST 05/25/2019 4:52 PM Signed Patient was due to test INR today will continue to monitor f or results. Joleen Cerrato PharmD Pharmacy [facility] Tahira Moore Pharmacist 06/01/2019 9:01 AM Signed [facility] Referring provider: No ref. provider found Lovely Devi is a 73 year old year old male patient being evaluated today for anticoagulation Telemanagement visit. Patient is currently on the following anticoagulant Warfarin Labs PT INR (no units) Date Value 11/26/2018 Test sent to [facility]. 10/16/2017 1.8 01/16/2017 Test sent to [facility]. INR (POCT) (no units) Date Value 02/21/2019 [...] was advised to call the P[facility] @ [phone] for any questions or concerns. Tahira Moore PharmD Clinical Pharmacist, Pharmacy Anticoagulation Clinic Pharmacy [facility]tico[facility] Clinic Pager: [phone] Description Patient has 3 mg tablets of warfarin. Patient takes in the m orning. . Allergies As of Date: 05/25/2019 Noted Allergy Reaction MORPHINE 02/28/2005 ROCEPHIN (CEFTRIAXONE SODIUM) 06/20/2014 14 - Other: See Com ments Comments: Hot flashes; redness to skin Date Reviewed: 04/28/2019 Reviewed by: Linwood ([facility]) JAZZY Carpenter - Fully Assessed Reason for [...] on progress on 2019-03 PROGRESS HNO ID: [id number] Normal 04-28-2019 [facility] Author: Morgan Valdez III [place] ([id number]) Service: ? Author Type: Physician Type: Progress [...] nausea w/o emesis. no chest pain, angina, FORUNIER, cough, , rectal bleeding, change in urination [...] G47.33 327.23 - fax compliance download to [phone] - flash glucose sensor (FREESTYLE ANITRA 14 [...] mouth once daily. - blood sugar diagnostic (S[employer]beat BLOOD GLUCOSE SYSTEM) test strip Use as [...] of vessel, na tive or graft s/p ID in 1985 - Diverticulosis of colon (without [...] ventricular tachycardia (HCC) - Snoring - Stroke ([facility]) - Tinea of nail 01/13/2011 - Type [...] 2019-04-28 CNOV Office Visit (FAMPWS) Normal 04-28-19 [place] [facility] LOVELY DEVI ([id number]) 1945 M [place] Date Time Provider Department ([id number]) 04/28/19 10:20 AM MORGAN VALDEZ IIIWS During [...] G47.33 327.23 - fax compliance download to [phone] - flash glucose sensor (FREESTYLE ANITRA 14 [...] mouth once daily. - blood sugar diagnostic (Sensbeat BLOOD GLUCOSE SYSTEM) test strip Use as [...] TOUCH ULTRASO FT LANCETS) lancets Use with [employer] Glucometer as directed - Aspirin 81 mg [...] of vessel, na tive or graft s/p ID in 1985 - Diverticulosis of colon (without [...] III MD Referring Provider: MORGAN VALDEZ III [[id number]] Allergies As of Date: 04/28/2019 Noted Allergy Reaction MORPHINE 02/28/2005 ROCEPHIN (CEFTRIAXONE SODIUM) 06/20/2014 14 - Other: See Com ments Comments: Hot flashes; redness to skin Date Reviewed: 04/28/2019 Reviewed by: Linwood [facility] JAZZY Carpenter - Fully Assessed Reason for [...] Order(s):ALBUMIN/CREAT RATIO RND UR [SQUACR] Order #: [id number] FUTURE HGB A1C [BXRXH1J] Order #: [id number] FUTURE LIPID PANEL BASIC [SQLIPB] Order #: [id number] FUTURE COMP METABOLIC PANEL [SQCMP] Order #: [id number] FUTURE Prescriptions as of 04/28/2019 Sig: FUROSEMIDE [...] 25 Hydroxy 28.0 31.0-80.0 ng/mL Low 0 [facility] ([id number]) Comment: Result Comment: Classificati on of 25 [place] Vitamin D status: Insufficiency/Moderate Defic iency: < or = 30 ng/mL Sufficiency/Optimal Levels: 31 to 80 ng/mL Toxicity: > 100 ng/mL Test performed by chemilumin escent immunoassay. Performed By: #### VITD, HBA 1C, CMP #### [facility] [address] [place], [place] [address] hemoglobin a1c on HbA1c (Bld) [Mass fraction] 6.8 4.3-5.6 % High [facility] (86865) Comment: Result Comment: [place] Dominique betes Association guidelines indicate that patients with HgbA1c in the range 5.7-6.4% are at increased risk for development of diabetes, and intervention by lifestyle modification may be beneficial. HgbA1c greater o r equal to 6.5% is considered diagnostic of diabetes. Performed By: #### VITD, HBA 1C, CMP ####[facility] [address] [place], [place] [address] HbA1c (Bld) [Mass fraction] 148 mg/dL Normal [facility] (74190) Comment: Result Comment: eAG: (Wilnera devin average glucose) is a calculated value from HgbA1c and is automobile sales representative of the average blood glucose level in the last 2-3 month period. Performed By: #### VITD, HBA 1C, CMP ####[place] [id number] [place] [address] [phone] comp metabolic panel on 2019-04-21 Albumin [Mass/Vol] 4.5 3.9-4.9 g/dL Normal 04-21-2019 [facility] (42124) Comment: Performed By: #### VITD, HBA 1C, CMP ####[place] [address] [place] [address] ALP [Catalytic activity/Vol] 51 38-113 U/L Normal 0 04-21-2019 [facility] (88603) Comment: Performed By: #### VITD, HBA 1C, CMP ####[place] [address] [place] [address] [phone] ALT [Catalytic activity/Vol] 33 10-54 U/L Normal 0 04-21-2019 [facility] (55659) Comment: Performed By: #### VITD, HBA 1C, CMP ####[place] [address] [place] [address] Anion gap [Moles/Vol] 13 9-18 mmol/L Normal 04-21-19 [facility] (56880) Comment: Performed By: #### VITD, HBA 1C, CMP ####[place] [address] [place] [address] [phone] AST [Catalytic activity/Vol] 36 14-40 U/L Normal 0 04-21-2019 [facility] (59281) Comment: Performed By: #### VITD, HBA 1C, CMP ####[place] [address] [place] [address] [phone] Bilirubin [Mass/Vol] 0.6 0.2-1.3 mg/dL Normal 0 [facility] (59653) Comment: Performed By: #### VITD, HBA 1C, CMP ####[place] [address] [place] [address] [phone] Calcium [Mass/Vol] 9.3 8.5-10.2 mg/dL Normal 04-21-2019 [facility] (70394) Comment: Performed By: #### VITD, HBA 1C, CMP ####[place] [address] [address] [place] [address] [phone] Chloride [Moles/Vol] 98 97-105 mmol/L Normal 0 [facility] (03275) Comment: Performed By: #### VITD, HBA 1C, CMP ####[place] [address] [address] [place] [address] [phone] CO2 [Moles/Vol] 27 22-30 mmol/L Normal 04-21-2019 [facility] (66741) Comment: Performed By: #### VITD, HBA 1C, CMP ####[place] [address] [address] [place] [address] [phone] Creatinine [Mass/Vol] 1.35 0.73-1.22 mg/dL High 04-21-19 20 [facility] (88402) Comment: Performed By: #### VITD, HBA 1C, CMP ####[place] [address] [place] [address] [phone] eGFR- Amer. >60 Normal 04-21-2019 [facility] (41336) Comment: Performed By: #### VITD, HBA 1C, CMP ####[place] [address] [place] [address] [phone] GFR/1.73 sq M predicted among 52 . Normal 04-21-2019 [facility] non-blacks MDRD (S/P/Bld) [Vol (38063) rate/Area] Comment: Result Comment: eGFR (Estima devin [...] Performed By: #### VITD, HBA 1C, CMP ####[facility] [employer] [address] [phone] Glucose [Mass/Vol] 185 74-99 mg/dL High 04-21-2019 [facility] (44272) Comment: Result Comment: The [place] Diabetes Association (ADA) provides guidance for cutoff [...] for diagnosis of diabetes. Reference: Standards of [facility] Care in Diabetes 2016, [place] Diabetes Association. Diabetes Care. 2016.39(Suppl 1). Performed By: #### VITD, HBA 1C, CMP ####[facility] [address] [place] [address] [phone] Potassium [Moles/Vol] 4.6 3.7-5.1 mmol/L Normal 04-21-19 [facility] (42472) Comment: Performed By: #### VITD, HBA 1C, CMP ####[facility] [address] [place] [address] Protein [Mass/Vol] 7.1 6.3-8.0 g/dL Normal 04-21-2019 [facility] (20167) Comment: Performed By: #### VITD, HBA 1C, CMP ####[facility] [address] [place] [address] [phone] Sodium [Moles/Vol] 138 136-144 mmol/L Normal 04-21-2019 [facility] (15611) Comment: Performed By: #### VITD, HBA 1C, CMP ####[facility] [address] [place] [address] [phone] Urea nitrogen [Mass/Vol] 25 9-24 mg/dL High 04-21 [facility] (24926) Comment: Performed By: #### VITD, HBA 1C, CMP ####[facility] [place] [address] [phone] progress on 2019-03 PROGRESS HNO ID: [id number] Normal 04-19-2019 [facility] Author: Jeffy Fontenot (Rn) [place] ([id number]) Service: ? 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 Author Type: Nurse Practitioner Type: [...] of vessel, na tive or graft s/p ID in 1985 - Diverticulosis of colon (without [...] Laterality Date - [facility]2017 Dr. Anthony-repeat 3 years-11/2020 - COLONOSCOPY W/BX 02/21/09 - EGD W/O OR W/BRUSH/WASH EGD - EGD W/O OR W/BRUSH/WASH 02/16/08 EGD inpt [facility] H-pylori negative - EGD W/O OR W/BRUSH/WASH 05/24/15 EGD - EGD W/O OR W/BRUSH/WASH 12/21/2017 Dr. Anthony-repeat 3 years-11/2020 - HEART CATHETERIZATION 12/15/2014 [facility] - see scanned documents - HEART [...] G47.33 327.23 - fax compliance download to [phone] flash glucose sensor (FREESTYLE ANITRA 14 DAY [...] by mouth once daily. blood sugar diagnostic (Sensbeat BLOOD GLUCOSE SYSTEM) test s trip Use [...] (ONE TOUCH ULTRASOFT LANCETS) lancets Use with [facility] Glucometer as directed Aspirin 81 mg ORAL [...] including hand washing. - Instructed to call electroplater automatic or go to ED if high fev [...] and symptoms. All questions addressed. Ariana Arias APRN.DEPUTY CORONER cnov on 2019-04-05 CNOV Office Visit (UCWSTR) Normal 04-05-19 [place] [facility] LOVELY DEVI ([id number]) 1945 M [place] Date Time Provider Department ([id number]) 04/05/19 11:15 AM ARIANA ARIAS [facility] [...] of vessel, na tive or graft s/p ID in 1985 - Diverticulosis of colon (without [...] Laterality Date - COLONOSCOP W/ OR W/O [facility] SPEC 12/21/2017 Dr. Anthony-repeat 3 years-11/2020 - COLONOSCOPY W/BX 02/21/09 - EGD W/O OR W/BRUSH/WASH EGD - EGD W/O [facility] - [facility] W/O OR W/BRUSH/WASH 05/24/15 EGD - EGD W/O OR W/BRUSH/WASH 12/21/2017 Dr. Anthony-repeat 3 years-11/2020 - HEART CATHETERIZATION 12/15/2014 [facility] - see scanned documents - HEART [...] G47.33 327.23 - fax compliance download to [phone] flash glucose sensor (FREESTYLE ANITRA 14 DAY [...] by mouth once daily. blood sugar diagnostic (Sensbeat BLOOD GLUCOSE SYSTEM) test s trip Use [...] including hand washing. - Instructed to call electroplater automatic or go to ED if high fever, [...] e person should be evaluated by an electroplater automatic. Contact lens wearers ? People who wear [...] within two weeks, an examination with an electroplater automatic may be recomme nded. CONJUNCTIVITIS PREVENTION Bacterial [...] are four main types of conjunctivitis: bacterial, eilas l, allergic, and non-specific. Most cases of [...] person melinda uld be evaluated by an electroplater automatic. Contact lens wearers ? People who wear [...] touching their eyes, should probably not attend [facility] until the discharge has [...] 25 Hydroxy 25.2 31.0-80.0 ng/mL Low 9 [facility] ([id number]) Comment: Result Comment: Classificati on of 25 [place] Vitamin D status: Insufficiency/Moderate Defic iency: < or = 30 ng/mL Sufficiency/Optimal Levels: 31 to 80 ng/mL Toxicity: > 100 ng/mL Test performed by chemilumin escent immunoassay. Performed By: #### FERR, VIT D, IRON, TSH #### [facility] [address] [place] [phone] tsh on 2019-03-24 TSH Qn 2.590 0.270-4.200 uU/mL Normal 03-24-2019 [facility] ([id number]) Comment: Performed By: #### FERR, VIT D, IRON, TSH #### [facility] [address] [place] [phone] progress on 2019-02 PROGRESS HNO ID: [id number] Normal 03-24-2019 [place] Author: Ariana Richey) [facility] Service: ? [place] Author Type: Nurse Practitioner ([id number]) Type: Progress Notes Filed: 03/24/2019 4:47 PM Note Text: [facility] Sleep Disorders Center Follow-up/Established patient visit Date of last visit: 01/26/19 ? Sleep Disorder Dx Impression: Obstructive sleep apnea -?Compliant and beneffiting Residual daytime sleepiness.? ? Psychiatric Diagnoses: na ? Other Conditioning Diagnoses CAD, Afib, Petit's. Cardiomegaly, Obesity, Dysphagia, HTN, Reflux, DM2,?Neck mass lower left neck ? Case Formulation / Max (may include pt's hopes, fears, ex pectations, [...] MD ? 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 blood sugar diagnostic (Sensbeat BLOOD GLUCOSE SYSTEM) test s trip Use [...] depending on your insurance coverage. Contact your [employer] company for new supplies as needed. - Patient to talk to Chencho at [facility] on mask fit. If unab le [...] Follow up in 3 month(s). Ariana Bernal APRN.DEPUTY CORONER PROGRESS HNO ID: [id number] Normal 03-24-2019 [place] Author: Deniz George FEATHER CURLING 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 Clinic Service: ? [place] Author Type: ? (0000 0) Type: Progress Notes Filed: 03/24/2019 10:54 AM Note Text: iron and tibc on 17-03-26 Iron [Mass/Vol] 102 41-186 ug/dL Normal 03-24-2019 [facility] ([id number]) Comment: Performed By: #### FERR, VIT D, IRON, TSH #### [facility] [address] [place], [place] [address] TIBC 402 232-386 ug/dL High 03-24-2019 [facility] (05413) Comment: Performed By: #### FERR, VIT D, IRON, TSH #### [facility] [address] [place], [place] [address] Transferrin Saturatn 25 15-57 % Normal 9 [facility] (18215) Comment: Performed By: #### FERR, VIT D, IRON, TSH #### [facility] [address] [place], [place] [address] ferritin on 2019-02 Ferritin [Mass/Vol] 61.8 30.3-565.7 ng/mL Normal 9 [facility] (46517) Comment: Performed By: #### FERR, VIT D, IRON, TSH #### [facility] [address] [place], [place] [address] cnov on 2019-03-24 CNOV Office Visit (NEMOWS) Normal 03-24-[address] [place] [address] [facility] LOVELY DEVI ([id number]) 1945 [facility] Date Time Provider Department ([id number]) 03/24/19 11:00 AM ARIANA BERNAL (ELBA) NEMOWS During your visit today, we recorded the following informati on about you: Pulse Respiration Blood pressure Weight 62/minute 16/minute 123/58 122.5 kg Deniz George LPN 03/24/2019 10:54 AM Signed Ariana Bernal APRN.ELBA 03/24/2019 4:47 PM Signed [facility] Center Follow-up/Established patient visit Date of last visit: 01/26/19 ? Sleep Disorder Dx Impression: Obstructive sleep apnea -?Compliant and beneffiting Residual daytime sleepiness.? ? Psychiatric Diagnoses: na ? Other Conditioning Diagnoses CAD, Afib, Petit's. Cardiomegaly, Obes ity, Dysphagia, HTN, Reflux, DM2,?Neck mass lower left neck ? Case Formulation / Max (may include pt's hopes, fears, ex pectations, [...] MD ? For this visit, a total oogf-iq-rgwa time with the patient c omprised 30 minutes, with at least 50% of that time devoted to yejd-ay-mbsh counseling and coordination of care, with especial [...] of vessel, na tive or graft s/p ID in 1985 - Diverticulosis of colon (without [...] disease, with long-term current use of insulin ([facility]) 06/15/2017 - Unspecified essential hypertension PSH, SH: [...] G47.33 327.23 - fax compliance download to [phone] flash glucose sensor (FREESTYLE ANITRA 14 DAY [...] by mouth once daily. blood sugar diagnostic (Sensbeat BLOOD GLUCOSE SYSTEM) test s trip Use [...] TOUCH ULTRASOFT LANCETS) lancets Us e with [employer] Glucometer as directed Aspirin 81 mg ORAL [...] depending on your insurance coverage. Contact your [facility] [employer] company for new supplies as needed. - [...] covered by insurance. Referring Provider: NIK PUENTE [[id number]] Allergies As of Date: 03/24/2019 Noted Allergy Reaction MORPHINE 02/28/2005 ROCEPHIN (CEFTRIAXONE SODIUM) 06/20/2014 14 - Other: See Com ments Comments: Hot flashes; redness to skin Date Reviewed: 03/24/2019 Reviewed by: Ariana (Pattern Developer) Gabe - Fully Assessed Reason for Visit: [...] tabletRfl: 1 FERRITIN BLD [SQFERR] Order #: [id number] FUTURE IRON + TIBC [SQIRON] Order #: [id number] FUTURE TSH BLD [SQTSH] Order #: [id number] FUTURE VITAMIN D 25 HYDROXY [SQVITD] Order #: [id number] FUTURE rOPINIRole (REQUIP) 0.5 mg tabletTake 1 [...] file. Cosign accepted by MORGAN VALDEZ III, MD[[id number]] on 06/18/19 13 5:06 PM traZODone (DESYREL) 50 mg tablet 30 t* 0 02/17/2019 03/24/20 Route: ORAL Sig: Take 1 tablet by mouth daily at bedtime. Disc: Reason for discontinue is not on file. Disposition: Return in about 3 months (around 06/23/2019). Follow-up and Disposition History Recorded Encounter Status:Closed by ARIANA BERNAL on 03/24/19 progress on 2019-01 PROGRESS HNO ID: [id number] Normal 02-21-2019 [facility] Author: Linwood Carpenter MA [place] ([id number]) Service: ? Author Type: Composing Room Machinist Type: Progress Notes Filed: 02/21/2019 7:22 PM Note Text: Per PCP written response: PCP in agreement with instructions below. Linwood Carpenter CMA PROGRESS HNO ID: [id number] Normal 02-21-2019 [facility] Author: Melany Yuen RN [place] ([id number]) Service: ? Author Type: ? Type: Progress Notes Filed: 02/21/2019 10:36 AM Note Text: patient had inr completed at [facility] patients inr is 2.9 (patients [...] on 2019-01 OBSOLETE Refill (NEMOWS) Normal 02-17-2019 [facility] LOVELY DEVI ([id number]) 1945 M [place] Date Time Provider Department ([id number]) 02/17/19 NIK PUENTE During your visit today, [...] lower left neck ? Case Formulation / Max (may include pt's hopes, fears, ex pectations, [...] skin Date Reviewed: 01/26/2019 Reviewed by: Linwood ([facility]) JAZZY Carpenter - Fully Assessed Reason for Visit: Refill Request [94] Order(s):traZODone (DESYREL) 50 mg tabletTake 1 tablet by mo [facility] daily at bedtime.Disp: 30 tabletRfl: 0 Prescriptions [...] Normal 02-17-2019 [facility] LOVELY DEVI ([id number]) 1945 [facility] Date Time Provider Department ([id number]) 02/17/19 DENIZ GARSIA During your visit today, [...] skin Date Reviewed: 01/26/2019 Reviewed by: Linwood ([facility]) JAZZY Carpenter - Fully Assessed Reason for [...] mouth once ajay * LANCETS Use with SwapBeatsuch Glucometer * COLESTIPOL 1 GRAM TABLET Take [...] on file. Encounter Status:Closed by DENIZ GARSIA DEPUTY CORONER on 02/17/19 obsolete on 2019-01 OBSOLETE Refill (FAMPWS) Normal 02-04-2019 Jose chapin [facility] LOVELY DEVI ([id number]) 1945 [place] Date Time Provider Department ([id number]) 02/04/19 MORGAN VALDEZ III During your visit [...] skin Date Reviewed: 01/26/2019 Reviewed by: Linwood ([facility]) JAZZY Carpenter - Fully Assessed Reason for [...] mouth once ajay * LANCETS Use with OneAcadiaSoftuch Glucometer * COLESTIPOL 1 GRAM TABLET Take [...] 02/04/19 progress on 2018-12 PROGRESS HNO ID: [id number] Normal 01-26-2019 [facility] Author: Morgan Valdez III [place] ([id number]) Service: ? Author Type: Physician Type: Progress [...] G47.33 327.23 - fax compliance download to [phone] flash glucose sensor (FREESTYLE ANITRA 14 DAY [...] by mouth once daily. blood sugar diagnostic (Sensbeat BLOOD GLUCOSE SYSTEM) test s trip Use [...] of vessel, na tive or graft s/p ID in 1985 - Diverticulosis of colon (without [...] Alatorre MD, III MD PROGRESS HNO ID: [id number] Normal 01-26-2019 [facility] Author: Nik Amado ([id number]) Service: ? Author Type: Physician Type: Progress Notes Filed: 01/26/2019 12:22 PM Note Text: [facility] Sleep Disorders Center Follow-up/Established patient visit Reason for Visit: med review. Time Out: 9:10 Time In: 8:53 For this visit, a total iwpy-dw-xrkj time with the patient c omprised 15 [...] lower left neck. ? Case Formulation / Max (may include pt's hopes, fears, ex pectations, [...] G47.33 327.23 - fax compliance download to [phone] flash glucose sensor (FREESTYLE ANITRA 14 DAY [...] by mouth once daily. blood sugar diagnostic (Sensbeat BLOOD GLUCOSE SYSTEM) test s trip Use [...] mass lower left neck Case Formulation / Max (may include pt's hopes, fears, ex pectations, [...] CNOV Office Visit (FAMPWS) Normal 01-27-20 19 [facility] LOVELY DEVI ([id number]) 1945 [facility] Date Time Provider Department ([id number]) 01/26/19 9:40 AM MORGAN VALDEZ III FAMPWS [...] humidity and lifetime supplies. Dx. JESSICA G47.33 327.05 - fax compliance download to [phone] flash glucose sensor (FREESTYLE ANITRA 14 DAY [...] by mouth once daily. blood sugar diagnostic (Sensbeat BLOOD GLUCOSE SYSTEM) test s trip Use [...] TOUCH ULTRASOFT LANCETS) lancets Us e with SwapBeatsuch Glucometer as directed colestipol 1 gram tablet [...] of vessel, na tive or graft s/p ID in 1985 - Diverticulosis of colon (without [...] disease, with long-term current use of insulin ([facility]) 06/15/2017 - Unspecified essential hypertension FAMILY HISTORY [...] III MD Referring Provider: MORGAN VALDEZ III [[id number]] Allergies As of Date: 01/26/2019 Noted Allergy Reaction MORPHINE 02/28/2005 ROCEPHIN (CEFTRIAXONE SODIUM) 06/20/2014 14 - Other: See Com ments Comments: Hot flashes; redness to skin Date Reviewed: 01/26/2019 Reviewed by: Linwood ([facility]) JAZZY Carpenter - Fully Assessed Reason for Visit: 3 month check up [Other] Primary Visit Diagnosis:Type 2 diabetes mellitus with st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, with long-term current use of insulin ([facility]) [E11.22, N18.3, Z79.4] Other Visit Diagnoses:Acute on chronic systolic congestive h eart failure ([facility]) [I50.23] Class 2 severe obesity due to excess calories with serious comorbidity and body mass index (BMI) of 38.0 to 38.9 in adult ([facility]) [E66.01, Z68.38] ASHD (arteriosclerotic heart disease) [I25.10] Paroxysmal atrial fibrillation ([facility]) [I48.0] Anticoagulated on Coumadin [Z79.01] Controlled type 2 diabetes mellitus without complication, with long-term current use of insulin ([facility]) [E11.9, Z79.4] Vitamin D 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] Order(s):HGB A1C [PLSQV6D] Order #: [id number] FUTURE COMP METABOLIC PANEL [SQCMP] Order #: [id number] FUTURE insulin lispro (HUMALOG U-100 INSULIN) 100 unit/mL injection 18 units with breakfast, 17 units at lunch, and 24 units with supper. Disp: Rfl: VITAMIN D 25 HYDROXY [SQVITD] Order #: [id number] FUTURE Prescriptions as of 01/26/2019 Sig: TRAZODONE [...] 01/26/19 [place] Office Visit ([place]) Normal 01-27-20 [place] [facility] LOVELY DEVI ([id number]) 1945 [place] Date Time Provider Department ([id number]) 01/26/19 8:40 AM NIK PUENTE During your visit today, we recorded the following informati on about you: Pulse Respiration Blood pressure Weight 60/minute 20/minute 130/82 121.1 kg Nik Puente MD 01/26/2019 12:22 PM Signed [facility] Sleep Disorders Center Follow-up/Established patient visit Reason for Visit: med review. Time Out: 9:10 Time In: 8:53 For this visit, a total pula-bk-lkrk time with the patient c omprised 15 minutes, with at least 50% of that time devoted to bnll-fb-kmhy counseling and coordination of care, with especial emph asis placed on answering the patient?s and/or family?s questions in a form that they can unde rstand and appreciate. Relevant Medications, allergies, hx Reviewed: yes Date of last visit: 11/24/18 Insurance: Medicare Home Location: [place] From Last Visit: Sleep Disorder Dx Impression: Obstructive sleep apnea -?Compliant and beneffiting Residual daytime sleepiness.? ? Psychiatric Diagnoses: na ? Other Conditioning Diagnoses CAD, Afib, Petit's. Cardiomegaly, Obes ity, Dysphagia, HTN, Reflux, DM2,?Neck mass lower left neck. ? Case Formulation / Max (may include pt's hopes, fears, ex pectations, [...] G47.33 327.23 - fax compliance download to [phone] flash glucose sensor (FREESTYLE ANITRA 14 DAY [...] by mouth once daily. blood sugar diagnostic (Sensbeat BLOOD GLUCOSE SYSTEM) test s trip Use [...] mass lower left neck Case Formulation / Max (may include pt's hopes, fears, ex pectations, [...] Nik Puente MD Referring Provider: ARIANA BERNAL ([facility]) [[id number]] Allergies As of Date: 01/26/2019 Noted Allergy Reaction MORPHINE 02/28/2005 ROCEPHIN (CEFTRIAXONE SODIUM) 06/20/2014 14 - Other: See Com ments Comments: Hot flashes; redness to skin Date Reviewed: 01/26/2019 Reviewed by: Linwood ([facility]) JAZZY Carpenter - Fully Assessed Reason for [...] (BMI) of 38.0 to 38.9 in adult ([facility]) [E66.01, Z68.38] 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, 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, with long-term current use of insulin ([facility]) [E11.22, N18.3, Z79.4] Localized swelling, mass and lump, neck [R22.1] Type 2 diabetes mellitus with peripheral neuropathy ([facility]) [E11.42] Order(s):traZODone (DESYREL) 50 mg tabletTake 1 [...] mouth once ajay * LANCETS Use with SwapBeatsuch Glucometer * COLESTIPOL 1 GRAM TABLET Take [...] 01/26/19 progress on 2018-12 PROGRESS HNO ID: [id number] Normal 01-24-2019 [facility] Author: Linwood Carpenter MA [place] ([id number]) Service: ? Author Type: Composing Room Machinist Type: Progress Notes Filed: 01/24/2019 4:23 PM Note Text: Per PCP written response: PCP in agreement with instructions below. Tracker updated. Linwood Carpenter CMA PROGRESS HNO ID: [id number] Normal 01-24-2019 [facility] Author: Melany Yuen RN [place] ([id number]) Service: ? Author Type: ? Type: Progress Notes Filed: 01/24/2019 10:44 AM Note Text: patient had inr completed at [facility] patients inr is 2.9 (patients [...] INR. progress on 2018-12 PROGRESS HNO ID: [id number] Normal 01-17-2019 [facility] Author: Linwood Carpenter MA [place] ([id number]) Service: ? Author Type: Composing Room Machinist Type: Progress Notes Filed: 01/17/2019 4:16 PM Note Text: Per PCP written response: Same coumadin, recheck on 01/31 as scheduled. Tracker updated . Patient notified, voiced understanding. Linwood Carpenter CMA PROGRESS HNO ID: [id number] Normal 01-17-2019 [facility] Author: Melany Yuen RN [place] ([id number]) Service: ? Author Type: ? Type: Progress [...] Cholesterol [Mass/Vol] 118 <200 mg/dL Normal 019 [facility] (31497) Comment: Result Comment: <200 mg/dL, Desirable 200-239 mg/dL, Borderline hi gh >239 mg/dL, High Performed By: #### CMP, LIPB , HBA1C ####[facility] [address] [place] [address] [phone] Cholesterol in HDL [Mass/Vol] 32 >39 mg/dL Low 01-14-2019 [facility] ([id number]) Comment: Result Comment: 40-59 mg/dL, Acceptable >59 mg/dL, High: Negative ri sk factor for coronary heart disease <40 mg/dL, Low: Positive ris k factor for coronary heart disease Performed By: #### CMP, LIPB , HBA1C ####[facility] [address] [place] [address] [phone] Cholesterol in LDL 52 <100 mg/dL Normal 01-14-2019 [facility] [Mass/Vol] [place] ([id number]) Comment: Result Comment: <100 mg/dL, Optimal 100-129 mg/dL, Near optimal/ above optimal 130-159 mg/dL, Borderline hi gh 160-189 mg/dL, High >189 mg/dL, Very high Secondary prevention optimal LDL Cholesterol levels are recommended to be < 70 mg/dL Performed By: #### CMP, LIPB , HBA1C ####[place] [address] [phone] Fasting Time 13 hrs Normal 01-14-2019 [facility] (58675) Comment: Performed By: #### CMP, LIPB , HBA1C ####[place] [address] [phone] LDL:HDL Ratio 1.63 <2.54 Normal 01-14-2019 [facility] (96435) Comment: Result Comment: Reference: 1. National Cholesterol Educ ation Program ATP III Guideline At-A-Glance Quick Desk Reference: National Heart, Lung, and Blood [place]. National Institutes of Health. 2001: NIH Publication No. 01-3305. 2. An International Atherosc lerosis Society position paper: global recommendations for the management of dyslipidemia: executive summary, Atherosclerosis. 2014: 232(2):410-413. Performed By: #### CMP, LIPB , HBA1C ####[place] [address] [phone] Non HDL Cholesterol 86 <130 mg/dL Normal 01-14-2019 [facility] (58872) Comment: Result Comment: <130 mg/dL, Optimal 130-159 mg/dL, Near optimal/ above optimal 160-189 mg/dL, Borderline hi gh 190-219 mg/dL, High >219 mg/dL, Very high Secondary prevention optimal non HDL Cholesterol levels are recommended to be < 100 mg/dL Performed By: #### CMP, LIPB , HBA1C ####[place] [address] [phone] TC:HDL Ratio 3.69 <5.10 Normal 01-14-2019 [facility] (31942) Comment: Performed By: #### CMP, LIPB , HBA1C ####[place] [address] [phone] Triglyceride [Mass/Vol] 172 <150 mg/dL High 2018 [facility] (59393) Comment: Result Comment: <150 mg/dL, Normal 150-199 mg/dL, Borderline hi gh 200-499 mg/dL, High >499 mg/dL, Very high Performed By: #### CMP, LIPB , HBA1C ####[address] [place] [address] [phone] VLDL Cholesterol 34 <30 mg/dL High 01-14-2019 [facility] (76027) Comment: Performed By: #### CMP, LIPB , HBA1C ####[address] [place] [address] [phone] hemoglobin a1c on 2 HbA1c (Bld) [Mass fraction] 7.3 4.3-5.6 % High [facility] (43036) Comment: Result Comment: [place] Dominique betes Association guidelines indicate that patients with HgbA1c in the range 5.7-6.4% are at increased risk for development of diabetes, and intervention by lifestyle modification may be beneficial. HgbA1c greater o r equal to 6.5% is considered diagnostic of diabetes. Performed By: #### CMP, LIPB , HBA1C ####[place] [address] [phone] HbA1c (Bld) [Mass fraction] 163 mg/dL Normal [facility] (45182) Comment: Result Comment: eAG: (Estima devin average glucose) is a calculated value from HgbA1c and is automobile sales representative of the average blood glucose level in the last 2-3 month period. Performed By: #### CMP, LIPB , HBA1C ####[place] [address] [address] [place] [address] [phone] comp metabolic panel on 2019-01-14 Albumin [Mass/Vol] 4.3 3.9-4.9 g/dL Normal 01-14-2019 [facility] (85712) Comment: Performed By: #### CMP, LIPB , HBA1C ####[address] [place] [address] [phone] ALP [Catalytic activity/Vol] 54 38-113 U/L Normal 1 [facility] (62042) Comment: Performed By: #### CMP, LIPB , HBA1C ####[place] [address] [address] [place] [address] [phone] ALT [Catalytic activity/Vol] 23 10-54 U/L Normal 1 [facility] (21626) Comment: Performed By: #### CMP, LIPB , HBA1C ####[place] [address] [address] [place] [address] Anion gap [Moles/Vol] 11 9-18 mmol/L Normal 01-15-20 19 [facility] (46196) Comment: Performed By: #### CMP, LIPB , HBA1C ####[place] [address] [address] [place] [address] AST [Catalytic activity/Vol] 25 14-40 U/L Normal 1 [facility] (66401) Comment: Performed By: #### CMP, LIPB , HBA1C ####[place] [address] [address] [place] [address] Bilirubin [Mass/Vol] 0.7 0.2-1.3 mg/dL Normal 9 [facility] (89761) Comment: Performed By: #### CMP, LIPB , HBA1C ####[place] [address] [address] [place] [address] Calcium [Mass/Vol] 8.6 8.5-10.2 mg/dL Normal 01-14-2019 [facility] (60136) Comment: Performed By: #### CMP, LIPB , HBA1C ####[place] [address] [address] [place] [address] [phone] Chloride [Moles/Vol] 102 97-105 mmol/L Normal 9 [facility] (30210) Comment: Performed By: #### CMP, LIPB , HBA1C ####[place] [address] [address] [place] [address] CO2 [Moles/Vol] 27 22-30 mmol/L Normal 01-14-2019 [facility] (03447) Comment: Performed By: #### CMP, LIPB , HBA1C ####[facility] [address] [place] [address] Creatinine [Mass/Vol] 1.24 0.73-1.22 mg/dL High 01-15-20 19 [facility] (44897) Comment: Performed By: #### CMP, LIPB , HBA1C ####[facility] [address] [place] [address] eGFR- Amer. >60 Normal 01-14-2019 [facility] (58588) Comment: Performed By: #### CMP, LIPB , HBA1C ####[facility] [place] [place] [address] GFR/1.73 sq M predicted among 57 . Normal 01-14-2019 [facility] non-blacks MDRD (S/P/Bld) [Vol (33913) rate/Area] Comment: Result Comment: eGFR (Estima devin [...] Performed By: #### CMP, LIPB , HBA1C ####[facility] [address] [place] [address] [phone] Glucose [Mass/Vol] 191 74-99 mg/dL High 01-14-2019 [facility] (57482) Comment: Result Comment: The [place] Diabetes Association (ADA) provides guidance for cutoff [...] for diagnosis of diabetes. Reference: Standards of [facility] Care in Diabetes 2016, [place] Diabetes Association. Diabetes Care. 2016.39(Suppl 1). Performed By: #### CMP, LIPB , HBA1C ####[place] [id number] [place] [address] [phone] Potassium [Moles/Vol] 4.5 3.7-5.1 mmol/L Normal 01-15-20 19 [facility] (14221) Comment: Performed By: #### CMP, LIPB , HBA1C ####[place] [address] [place] [address] [phone] Protein [Mass/Vol] 6.7 6.3-8.0 g/dL Normal 01-14-2019 [facility] (39432) Comment: Performed By: #### CMP, LIPB , HBA1C ####[facility] [place] [address] [phone] Sodium [Moles/Vol] 140 136-144 mmol/L Normal 01-14-2019 [facility] (73376) Comment: Performed By: #### CMP, LIPB , HBA1C ####[facility] [place] [address] [phone] Urea nitrogen [Mass/Vol] 23 9-24 mg/dL Normal 01-14 [facility] (37480) Comment: Performed By: #### CMP, LIPB , HBA1C ####[facility] [place] [address] [phone] cnnurse on [facility] Nurse Visit (FAMPWS) Normal 9 Am[facility] LOVELY DEVI ([id number]) 1945 [place] Date Time Provider Department (60174) 01/14/19 11:20 AM ID NURSE SABI During your visit today, we [...] mouth once ajay * LANCETS Use with [employer] Glucometer * COLESTIPOL 1 GRAM TABLET Take [...] 2019-01-14 Absolute nRBC <0.01 <0.01 Normal 01-14-2019 [facility] (94148) Comment: Performed By: #### CBC #### [facility] [address] [place], [place] [address] Erythrocyte distribution 14.6 11.5-15.0 % Normal 01-14 [facility] width (RBC) [Ratio] [place] (59017) Comment: Performed By: #### CBC #### [facility] [address] [place], [place] [address] Hematocrit (Bld) [Volume 37.9 39.0-51.0 % Low 01-14 [facility] fraction] (74729) Comment: Performed By: #### CBC #### [facility] [address] [place], [place] [address] Hemoglobin (Bld) 12.0 13.0-17.0 g/dL Low 01-14-2019 Cl [facility] [Mass/Vol] [place] (51079) Comment: Performed By: #### CBC #### [facility] [place], [place] [address] MCH (RBC) [Entitic mass] 29.4 26.0-34.0 pG Normal 01-14 [facility] (26391) Comment: Performed By: #### CBC #### [facility] [address] [place], [place] [address] MCHC (RBC) [Mass/Vol] 31.7 30.5-36.0 g/dL Normal 01-15-20 19 [facility] (87405) Comment: Performed By: #### CBC #### [facility] [address] [place] [address] MCV (RBC) [Entitic vol] 92.9 80.0-100.0 fL Normal 01-14 [facility] (32300) Comment: Performed By: #### CBC #### [facility] [address] [address] Platelet mean volume 10.5 9.0-12.7 fL Normal 9 [facility] (Bld) [Entitic vol] [place] (61474) Comment: Performed By: #### CBC #### [address] [address] Platelets (Bld) [#/Vol] 154 150-400 k/uL Normal 2018 [facility] (59310) Comment: Performed By: #### CBC #### [address] [address] RBC (Bld) [#/Vol] 4.08 4.20-6.00 m/uL Low 01-14-2019 C [facility] (71480) Comment: Performed By: #### CBC #### [facility] [address] [place], [place] [address] WBC (Bld) [#/Vol] 4.90 3.70-11.00 k/uL Normal 01-14-2019 [facility] (50813) Comment: Performed By: #### CBC #### [facility] [address] [place] [phone] albumin/creat ratio on 2019-01-14 Albumin Urine Random 15.6 mg/L Normal 9 [facility] (58567) Comment: Performed By: #### UACR #### [place] [address] [place], [place] [phone] Albumin/Creat Ratio 8 <30 mg/g Normal 01-14-2019 [facility] (92904) Comment: Result Comment: Adult Male a nd [...] 3(1), 1-150. Performed By: #### UACR #### [place] [address] [place], [place] [phone] Creatinine,Urine,Ran 206.0 20-300 mg/dL Normal 9 [facility] (11166) Comment: Performed By: #### UACR #### [facility] [place], [place] [phone] cnptoutreach on 12-07-14 CNPTOUTREACH Patient Outreach (FAMPST) Normal 1 [place] [facility] ANA ROSAALMITALOVELY CARY ([id number]) 1945 [facility] Date Time Provider Department (55439) 01/11/19 MORGAN VALDEZ III During your visit [...] Order(s):ALBUMIN/CREAT RATIO RND UR [SQUACR] Order #: [id number] FUTURE CBC [SQCBC] Order #: [id number] FUTURE Prescriptions as of 01/11/2019 Sig: LISINOPRIL [...] mouth once ajay * LANCETS Use with [employer] Glucometer * COLESTIPOL 1 GRAM TABLET Take [...] congestive heart fail*INVALID FOR* Encounter Status:Closed by [place], PRODUSER on 01/26/19 main or intraop record on 2017-02-23 Main OR Intraop Record Normal 02-23- 017 [facility]) (67374) progress note-nurse on 2017-02-17 Progress Note-Nurse Normal 02-17-2017 [facility]) (80147) pro on 2017-02-17 INR Coag RelTime (PPP) 1.5 ratio Normal 017 [facility]) (96161) Comment: Result Comment: The [employer] (CHEST, 1991, 102:312S-25S)recommended the rapeutic range for oral anticoagulant therapy is:LOW RISK: Prophylaxis of venous thrombosis INR: 2.0-3.0 Treatment of pulmonary embolism 2.0-3.0 P revention of systemic embolism 2.0-3.0HIGH RISK: Mechanical prosthetic valves 2.5-3.5 Performed By: #### CBC, ADIF F, ANEU, FIB, APTT, PRO, BMP, GFR ####[place] [address] Prothrombin time (PT) 17.7 9.0-14.5 seconds High 02-18-20 17 [facility] Coag time (PPP) [facility]) (49297) Comment: Result Comment: Effective , Protime results may be affected by some antibiotics (i.e. Ciprofloxa patrice, Azithromycin, Bactrim) which may potentiate the action of oral anticoagu lants, with further increases in Protime/INR. Performed By: #### CBC, ADIF F, ANEU, FIB, APTT, PRO, BMP, GFR ####[place] [address] fib on 2017-02-17 Fibrinogen 302 250-550 mg/dL Normal 02-17-2017 [facility] ([place]) (61905) Comment: Performed By: #### CBC, ADIF F, ANEU, FIB, APTT, PRO, BMP, GFR ####[place] [address] cbc on 2017-02-17 Erythrocyte distribution 13.8 11.5-15.5 % Normal 02-17 [facility] Ratio (RBC) [facility] ([place]) (21929) Comment: Performed By: #### CBC, ADIF F, ANEU, FIB, APTT, PRO, BMP, GFR ####[place] [address] Erythrocytes (RBC) 4.38 4.50-6.00 10 6/mcL Low 02-17-2017 [facility] ([place]) (0000 0) Comment: Performed By: #### CBC, ADIF F, ANEU, FIB, APTT, PRO, BMP, GFR ####[place] [address] Hematocrit (HCT) 37.6 40.0-52.0 % Low 02-17-2017 [facility] ([place]) (87213) Comment: Performed By: #### CBC, ADIF F, ANEU, FIB, APTT, PRO, BMP, GFR ####[place] [address] Hemoglobin mass conc 12.9 13.0-17.5 G/dL Low 7 [facility] (d) ([place]) (0000 0) Comment: Performed By: #### CBC, ADIF F, ANEU, FIB, APTT, PRO, BMP, GFR ####[place] [address] MCH 29.4 27.0-33.0 pg Normal 02-17-2017 [facility] ([place]) (66371) Comment: Performed By: #### CBC, ADIF F, ANEU, FIB, APTT, PRO, BMP, GFR ####[place] [address] MCHC mass conc (RBC) 34.2 32.0-36.0 G/dL Normal 7 [facility] ([place]) (0000 0) Comment: Performed By: #### CBC, ADIF F, ANEU, FIB, APTT, PRO, BMP, GFR ####[place] [address] MCV 85.9 81.0-100.0 fL Normal 02-17-2017 [facility] ([place]) (64208) Comment: Performed By: #### CBC, ADIF F, ANEU, FIB, APTT, PRO, BMP, GFR ####[place] [address] Platelet mean volume 8.0 6.4-10.5 fL Normal [address] [place] [address] (V) ([place]) (0000 0) Comment: Performed By: #### CBC, ADIF F, ANEU, FIB, APTT, PRO, BMP, GFR ####[place] [address] Platelets 164 150-450 10 3/mcL Normal 02-17-2017 [facility] ([place]) (55363) Comment: Performed By: #### CBC, ADIF F, ANEU, FIB, APTT, PRO, BMP, GFR ####[place] [address] WBC (Leukocytes) 6.10 4.50-10.80 10 3/mcL Normal 02-17-2017 [facility] ([place]) (0000 0) Comment: Performed By: #### CBC, ADIF F, ANEU, FIB, APTT, PRO, BMP, GFR ####[place] [address] bmp on 2017-02-17 BUN/Creatinine Ratio 31.8 10.0-22.0 ratio High 7 [facility] ([place]) (0000 0) Comment: Performed By: #### CBC, ADIF F, ANEU, FIB, APTT, PRO, BMP, GFR ####[place] [address] Calcium 8.8 8.4-10.1 mg/dL Normal 02-17-2017 [facility]) ([id number]) Comment: Performed By: #### CBC, ADIF F, ANEU, FIB, APTT, PRO, BMP, GFR ####[place] [address] Chloride 109 98-110 mEq/L Normal 02-17-2017 [facility] ([place]) ([id number]) Comment: Performed By: #### CBC, ADIF F, ANEU, FIB, APTT, PRO, BMP, GFR ####[place] [address] CO2 27 22-32 mEq/L Normal 02-17-2017 [facility] ([place]) ([id number]) Comment: Performed By: #### CBC, ADIF F, ANEU, FIB, APTT, PRO, BMP, GFR ####[place] [address] Creatinine 1.10 0.60-1.40 mg/dL Normal 02-17-2017 [facility] ([place]) ([id number]) Comment: Performed By: #### CBC, ADIF F, ANEU, FIB, APTT, PRO, BMP, GFR ####[place] [address] Electrolyte Balance 7.0 4.0-15.0 mEq/L Normal 02-17-2017 [facility] ([place]) (0000 0) Comment: Performed By: #### CBC, ADIF F, ANEU, FIB, APTT, PRO, BMP, GFR ####[place] [address] Glucose mass conc 99 82-115 mg/dL Normal 02-17-2017 [facility] ([place]) ([id number]) Comment: Performed By: #### CBC, ADIF F, ANEU, FIB, APTT, PRO, BMP, GFR ####[place] [address] Potassium molar conc 4.0 3.5-5.0 mEq/L Normal 7 [facility] ([place]) (0000 0) Comment: Performed By: #### CBC, ADIF F, ANEU, FIB, APTT, PRO, BMP, GFR ####[place] [address] Sodium 143 136-145 mEq/L Normal 02-17-2017 [facility] ([place]) ([id number]) Comment: Performed By: #### CBC, ADIF F, ANEU, FIB, APTT, PRO, BMP, GFR ####[place] [address] Urea nitrogen 35.0 8.0-22.0 mg/dL High 02-17-2017 [facility] ([place]) (15227) Comment: Performed By: #### CBC, ADIF F, ANEU, FIB, APTT, PRO, BMP, GFR ####[place] [address] aptt on 2017-02-17 aPTT 32.6 25.0-35.0 seconds Normal 02-17-2017 [facility] ([place]) ([id number]) Comment: Result Comment: For Heparin anticoagulation therapy, the recommendedtherapeutic range is: 54-77 seconds (APTT Correlationwith Anti-Xa therapeutic range of 0.3-0.7 units/ml).PLEASE REFERENCE THE PHARMACY PROTOCOL FOR DOSING. Performed By: #### CBC, ADIF F, ANEU, FIB, APTT, PRO, BMP, GFR ####[place] [address] aPTT Coumadin PO Normal 02-17-2017 [facility] ([place]) ([id number]) Comment: Performed By: #### CBC, ADIF F, ANEU, FIB, APTT, PRO, BMP, GFR ####[place] [address] .neuabs on Neutrophils 4.30 2.25-8.10 10 3/mcL Normal 02-17-2017 [facility] ([place]) ([id number]) Comment: Performed By: #### CBC, ADIF F, ANEU, FIB, APTT, PRO, BMP, GFR ####[place] [address] .gfr on 2017-02-17 eGFR (non-black) >60 mL/min/{1.73_m2} Normal 2016 [facility] ([place]) (0000 0) Comment: Result Comment: GFR Populati [...] F, ANEU, FIB, APTT, PRO, BMP, GFR ####[place] [address] .auto diff on 02-17 Basophils Auto #/vol 0.10 0.00-0.27 10 3/mcL Normal 7 [facility] ([facility]) [facility] ([place]) ([id number]) Comment: Performed By: #### CBC, ADIF F, ANEU, FIB, APTT, PRO, BMP, GFR ####[address] [address] Basophils/100 WBC Auto (Bld) 1.1 0.0-2.5 % Normal 1 04-19-2016 [facility] ([place]) (0000 0) Comment: Performed By: #### CBC, ADIF F, ANEU, FIB, APTT, PRO, BMP, GFR ####[address] [address] Eosinophils 0.20 0.00-0.65 10 3/mcL Normal 02-17-2017 [facility] ([place]) ([id number]) Comment: Performed By: #### CBC, ADIF F, ANEU, FIB, APTT, PRO, BMP, GFR ####[address] [address] Eosinophils/100 leukocytes 2.7 0.0-6.0 % Normal [facility] ([place]) (0000 0) Comment: Performed By: #### CBC, ADIF F, ANEU, FIB, APTT, PRO, BMP, GFR ####[address] [address] Lymphocytes 1.10 0.90-4.32 10 3/mcL Normal 02-17-2017 [facility] ([place]) ([id number]) Comment: Performed By: #### CBC, ADIF F, ANEU, FIB, APTT, PRO, BMP, GFR ####[address] [address] Lymphocytes/100 leukocytes 17.9 20.0-40.0 % Low [facility] ([place]) (0000 0) Comment: Performed By: #### CBC, ADIF F, ANEU, FIB, APTT, PRO, BMP, GFR ####[address] [address] Monocytes 0.50 0.09-1.40 10 3/mcL Normal 02-17-2017 [facility] ([place]) ([id number]) Comment: Performed By: #### CBC, ADIF F, ANEU, FIB, APTT, PRO, BMP, GFR ####[address] [address] Monocytes/100 leukocytes 8.5 2.0-13.0 % Normal 02-17 [facility] ([place]) (0000 0) Comment: Performed By: #### CBC, ADIF F, ANEU, FIB, APTT, PRO, BMP, GFR ####[facility] [place] [address] Neutrophils/100 WBC Auto 69.8 50.0-75.0 % Normal 02-17 [facility] (d) [facility] ([place]) ([id number]) Comment: Performed By: #### CBC, ADIF F, ANEU, FIB, APTT, PRO, BMP, GFR ####[facility] [place] [address] office visit: mmm o n 2017-01-01 Documentation of Done Invalid Interpretation 01-01-2017 - [facility] current medications Code 01-01-2017 Group ([id number]) (procedure) Fall risk assessment No Invalid Interpretat ion 01-01-2017 - [place] [facility] Code 01-01-2017 Group (44 691) Protein mass conc Done Invalid Interpretation 01-01-2017 - [place] [facility] Code 01-01-2017 Group (44 [id number]) clinical lists update: preload on 2016-12-30 Left ventricular 35 % Invalid Interpretation 12-30-2016 - [place] [facility] Ejection fraction Code 12-30-2016 [facility] ([id number]) chart maintenance o n 2016-11-16 Anion gap 9 mmol/L Invalid 11-16-2016 - [place] [facility] Interpretation Code 11-16-2016 Group ([id number]) Anion gap 4 molar 9 Invalid 11-16-2016 - [facility] conc Interpretation Code 11-16-2016 Group ([id number]) Anion gap molar 9 mmol/L 11-16-2016 - [place] conc 11-16-2016 Medical S i[facility]ma (57534 ) basophils as 0.5 % Invalid 11-16-2016 - [place] percent of blood Interpretation Code Medical Service, [facility] [employer] (779 56) manual count Calcium mass conc 8.3 mg/dL Low 11-16-2016 - [place] 11-16-2016 Medical S MROe, [employer] (34583 ) Chloride molar 105 mmol/L High 11-16-2016 - [place] conc 11-16-2016 Medical S ervice, [facility] (08669 ) Cholesterol in 30 mg/dL Low 11-16-2016 - [place] HDL mass conc 11-16-2016 Medic al Service, [facility] (47843 ) Cholesterol in 27 mg/dL Invalid 11-16-2016 - [place] LDL mass conc Interpretation Code 2016 [facility], [facility] (68490 ) Cholesterol mass 124 mg/dL Invalid 11-16-2016 - [place] conc Interpretation Code 11-16-2016 Medical Service, [facility] ([id number] ) CO2 25.0 mmol/L Invalid 11-16-2016 - [place] [facility] Interpretation Code 11-16-2016 Group ([id number]) CO2 ppres (BldV) 25.0 mmol/L Invalid 11-16-2016 - [place] Interpretation Code 11-16-2016 Medical Service, [facility] ([id number] ) Creatinine mass 1.20 mg/dL Invalid 11-16-2016 - [place] conc Interpretation Code 11-16-2016 [facility], [facility] ([id number] ) eGFR (non-black) 77 mL/min/1.73 Invalid 11-16-2016 - [facility] m2 Interpretation Code 11-16-2016 Group ([id number]) eosinophils as 3.4 % Invalid 11-16-2016 - [place] percent of blood Interpretation Code [facility], leukocytes, [facility] (443 91) manual count Erythrocyte 15.0 % High 11-16-2016 - [place] [facility] distribution 11-16-2016 Group (33607) width Auto Ratio (RBC) Erythrocyte 15.0 % High 11-16-2016 - [place] distribution 11-16-2016 Medica l Service, width Ratio (RBC) LL C ([id number]) GFR/1.73 sq M 63 mL/min/1.73 Invalid 11-16-2016 - [place] predicted among m2 Interpretation Code 10-29 Medical Service, non-blacks [employer] [facility] ([id number]) vol rate/area (S/P/Bld) Glomerular 77 mL/min/1.73 Invalid 11-16-2016 - [place] Filtration Rate m2 Interpretation Code 10-29 [facility] ([id number]) Glucose mass conc 287 mg/dL High 11-16-2016 - [place] 11-16-2016 [employer] (29732 ) Hematocrit Auto 33.2 % Low 11-16-2016 - [place] [facility] Volume Fraction 11-16-2016 Heather [facility] (58913) (Bld) Hematocrit Volume 33.2 % Low 11-16-2016 - [place] Fraction (Bld) 11-16-2016 [facility] ana [employer] (57526 ) Hemoglobin mass 11.4 g/dL Low 11-16-2016 - [place] conc (Bld) 11-16-2016 [employer] ([id number] ) Lipoprotein.pre-b 67 mg/dL High 11-16-2016 - [place] eta mass conc 11-16-2016 [employer] (01038 ) Lymphocytes/100 26.6 % 11-16-2016 - [place] WBC (Bld) 11-16-2016 [employer] (26399 ) Lymphocytes/100 26.6 % Invalid 11-16-2016 - [place] [facility] WBC Auto (Bld) Interpretation Code 11-16 Group ([id number]) MCH Auto Entitic 29.9 pg Invalid 11-16-2016 - [place] [facility] mass (RBC) Interpretation Code 7 Group (88473) MCH Entitic mass 29.9 pg 11-16-2016 - [place] (RBC) 11-16-2016 [employer] ([id number] ) MCHC Auto mass 34.3 g/dL Invalid 11-16-2016 - [place] [facility] conc (RBC) Interpretation Code 7 Group ([id number]) MCHC mass conc 34.3 g/dL 11-16-2016 - [place] (RBC) 11-16-2016 [employer] (95465 ) MCV Auto Entitic 87.1 fL Invalid 11-16-2016 - [facility] volume (RBC) Interpretation Code 017 Group (25137) MCV Entitic 87.1 fL 11-16-2016 - [place] volume (RBC) 11-16-2016 [employer] (09229 ) Monocytes/100 WBC 9.7 % 11-16-2016 - [place] (Bld) 11-16-2016 [employer] (58719 ) Monocytes/100 WBC 9.7 % Invalid 11-16-2016 - [place] [facility] Auto (Bld) Interpretation Code 7 Group (39175) Platelet mean 9.9 fL 11-16-2016 - [place] volume Entitic 11-16-2016 [facility] Service, volume (Bld) LLC (44 691) Platelet mean 9.9 fL Invalid 11-16-2016 - [place] [facility] volume Moiz-Annie Interpretation Code Group ([id number]) Entitic volume (Bld) Platelets #/vol 157 10*3/mm3 11-16-2016 - [place] (Bld) 11-16-2016 Medical S [facility] (53325 ) Platelets Auto 157 10*3/mm3 Invalid 11-16-2016 - [place] [facility] #/vol (Bld) Interpretation Code 11-17-19 17 Group ([id number]) Potassium molar 3.7 mmol/L Invalid 11-16-2016 - [place] conc Interpretation Code 11-16-2016 [employer] [facility] ([id number] ) RBC #/vol (Bld) 3.81 10*6/uL Low 11-16-2016 - [place] 11-16-2016 Medical S [facility] (15489 ) RBC Auto #/vol 3.81 10*6/uL Low 11-16-2016 - [place] [facility] (Bld) 11-16-2016 Group (44 681) Sodium molar conc 139 mmol/L Invalid 11-16-2016 - [place] Interpretation Code 11-16-2016 [employer] [facility] ([id number] ) Triglyceride mass 336 mg/dL High 11-16-2016 - [place] conc 11-16-2016 [employer] S i'mma (11256 ) Urea nitrogen 24 mg/dL High 11-16-2016 - [place] mass conc 11-16-2016 [employer] (80121 ) Urea 20.0 mg/mg Invalid [facility]-2016 [facility] nitrogen/Creatini Interpretation Code Medical [place], pr mass ratio [facility] ([id number]) very low density 67 mg/dL High 11-16-2016 - [facility] lipoproteins 11-16-2016 Group (45921) WBC #/vol (Bld) 4.4 10*9/L 11-16-2016 - [place] 11-16-2016 Medical [facility] (71406 ) WBC Auto #/vol 4.4 10*9/L Invalid 11-16-2016 - [place] [facility] (Bld) Interpretation Code 11-16-2016 Group ([id number]) chart maintenance o n 2016-11-15 INR Coag RelTime 2.5 {INR} Invalid 11-15-2016 [facility] (PPP) Interpretation Code 11-15-2016 [employer] ([id number] ) Prothrombin time 25.7 s High 11-15-2016 [facility] (PT) Coag time [facility]-15-2016 [facility] [employer] ([id number] ) office visit on 10-03-07 Documentation of Done Invalid 09-04-2016 - [facility] current medications Interpretation Code 09-04-2016 Group ([id number]) (procedure) Fall risk assessment No Invalid Heart Interpretation Code 09-04-2016 Group ([id number]) Protein mass conc Done Invalid 09-04-2016 - [place] Interpretation Code 09-04-2016 [facility] ([id number] ) clinical lists update: preload on 2016-09-03 Left ventricular 35 % Invalid Interpretation 09-03-2016 - [place] [facility] Ejection fraction Code 09-03-2016 G [facility] ([id number]) clinical lists update: preload on 2016-07-01 Anion gap 9 mmol/L Invalid 07-01-2016 - [place] Interpretation Code 07-01-2016 [facility] ([id number]) BUN/Creatinine 23.1 mg/mg High 07-01-2016 - [place] Ratio 07-01-2016 Heart [facility] (77190) Calcium 8.7 mg/dL Invalid 07-01-2016 - [place] Interpretation Code 07-01-2016 [facility] (21785) Chloride 103 mmol/L Invalid 07-01-2016 - [place] Interpretation Code 07-01-2016 [facility] ([id number]) CO2 28..0 Invalid 07-01-2016 - [place] Interpretation Code 07-01-2016 [facility] ([id number]) Creatinine 1.30 mg/dL Invalid 07-01-2016 - [place] Interpretation Code 07-01-2016 [facility] ([id number]) eGFR (non-black) 70 mL/min/1.73m Invalid 07-01-2016 - [place] 2 Interpretation Code 07-01-2016 [facility] (57390) eGFR (non-black) 58 mL/min/1.73m Low 07-01-2016 - [place] 2 07-01-2016 [facility] (73934) Erythrocytes (RBC) 4.58 10*6/uL Low 07-01-2016 - [place] 07-01-2016 Heart [facility] (50856) Glucose 195 mg/dL High 07-01-2016 - [place] 07-01-2016 [facility] (21689) Hematocrit (HCT) 41.2 % Invalid 07-01-2016 - [place] Interpretation Code 07-01-2016 [facility] ([id number]) Hemoglobin (HGB) 13.6 g/dL Invalid 07-01-2016 - [place] Interpretation Code 07-01-2016 [facility] ([id number]) MCH 29.7 pg Invalid 07-01-2016 - [place] Interpretation Code 07-01-2016 [facility] ([id number]) MCHC 33.0 g/dL Invalid 07-01-2016 - [place] Interpretation Code 07-01-2016 [facility] ([id number]) MCV 90.0 fL Invalid 07-01-2016 - [place] Interpretation Code 07-01-2016 [facility] ([id number]) Platelets 172 10*3/mm3 Invalid 07-01-2016 - [place] Interpretation Code 07-01-2016 [facility] ([id number]) PMV by Cindi 9.8 fL Invalid 07-01-2016 - [place] Interpretation Code 07-01-2016 [facility] (27589) Potassium 3.8 mmol/L Invalid 07-01-2016 - [place] Interpretation Code 07-01-2016 [facility] (45781) RDW-CA 13.8 % Invalid 07-01-2016 - [place] Interpretation Code 07-01-2016 [facility] (89503) Sodium 140 mmol/L Invalid 07-01-2016 - [place] Interpretation Code 07-01-2016 [facility] ([id number]) Urea nitrogen 30 mg/dL High 07-01-2016 - [place] 07-01-2016 Heart [facility] (05738) WBC (Leukocytes) 4.9 10*9/L Invalid 07-01-2016 - [place] Interpretation Code 07-01-2016 [facility] (50156) replaced document: midmark ecg observati ons on 2016-06-19 BUN (urea nitrogen) Sinus Rhythm Invalid 017 - [facility] -Frequent pvcs Interpretation 06-19-2016 Group ([id number]) -ventricular Code bigeminy -Right bundle branch block. - Inferior -lateral infarct (age undetermined). ABNORMAL EKG QRS axis -12 deg Invalid 06-19-2016 - [place] Interpretation 06-19-2016 Medi ana Code Service, L LC ([id number]) GE use only - for 428 ms Invalid 06-19-2016 - [facility] [employer] import Interpretation 06-20-19 17 Group ([id number]) when terms are not Code otherwise specified P [place] 40 deg Invalid 06-19-2016 - [place] Interpretation 06-19-2016 Medi ana Code Service, L LC ([id number]) P wave axis, 40 deg Invalid 06-19-2016 - [facility] electrocardiogram Interpretation 017 Group (58365) Code [place] Interval 156 ms Invalid 06-19-2016 - [place] Interpretation 06-19-2016 Medi ana Code Service, L LC ([id number]) [place] interval, 156 ms Invalid 06-19-2016 - [facility] electrocardiogram Interpretation 017 Group (75623) Code Pulse (Heart Rate) 81 BPM /min Invalid 06-19-2016 - [place] [facility] Interpretation 06-19-2016 Grou p ([id number]) Code QRS axis, -12 deg Invalid 06-19-2016 - [place] [facility] electrocardiogram Interpretation 017 Group (67179) Code QRS Duration 144 ms Invalid 06-19-2016 - [place] Interpretation 06-19-2016 Medi ana Code Service, L LC ([id number]) QRS duration, 144 ms Invalid 06-19-2016 - [place] [facility] electrocardiogram Interpretation 017 Group (54314) Code QT Interval new path ms Invalid 06-19-2016 - [place] Interpretation 06-19-2016 Medi ana Code Service, L LC ([id number]) QT interval, new path ms Invalid 06-19-2016 - [place] [facility] electrocardiogram Interpretation 017 Group (61792) Code QTc Hung 428 ms Invalid 06-19-2016 - [place] Interpretation 06-19-2016 Medi ana Code Service, L LC ([id number]) T [place] -1 deg Invalid 06-19-2016 - [place] Interpretation 06-19-2016 Medi ana Code Service, L LC ([id number]) T wave axis, -1 deg Invalid 06-19-2016 - [facility] electrocardiogram Interpretation 017 Group (59813) Code Urea nitrogen mass Sinus Rhythm 06-20-19 17 - [place] conc -Frequent pvcs 06-19-2016 [facility] ana -ventricular Service , [facility] bigeminy -Right (446 91) bundle branch block. - Inferior -lateral infarct (age undetermined). ABNORMAL office visit on 09-29-22 Documentation of Done Invalid Interpretation 06-19-2016 - [facility] current medications Code 06-19-2016 Group ([id number]) (procedure) Fall risk assessment No Invalid Interpretat ion 06-19-2016 - [place] [facility] Code 06-19-2016 Group (62 221) lab report: magnesium on 2016-06-19 Magnesium 2.0 1.8-2.4 mg/dL Invalid Interpretation 017 - [place] [facility] Code 06-19-2016 Group (44 091) lab report: basic metabolic profile (bmp ) on 2016-06-19 Anion gap 8 5-15 mmol/L Invalid 06-19-2016 - [place] [facility] Interpretation 06-19-2016 Grou p ([id number]) Code BUN/Creatinine 20.4 10-20 High 06-19-2016 - [place] [facility] Ratio RATIO 06-19-2016 Group (40 141) Calcium 9.1 8.5-10.1 mg/dL Invalid 06-19-2016 - [facility] Interpretation 06-19-2016 Grou p ([id number]) Code Chloride 103 98-107 mmol/L Invalid 06-19-2016 - [facility] Interpretation 06-19-2016 Grou p ([id number]) Code CO2 30.0 21.0-32. mmol/L Invalid 06-19-2016 - [facility] 0 Interpretation 06-19-2016 Grou p ([id number]) Code Creatinine 1.13 0.70-1.3 mg/dL Invalid 06-19-2016 - [place] [facility] 0 Interpretation 06-19-2016 Grou p ([id number]) Code eGFR 82 >60 mL/min Invalid 06-19-2016 - [place] [facility] (non-black) Interpretation 06-19-2016 Gr oup (43920) Code eGFR 68 >60 mL/min Invalid 06-19-2016 - [facility] (non-black) Interpretation 06-19-2016 Gr oup ([id number]) Code EST GFR - AA 82 >60 mL/min Invalid 06-19-2016 - [place] Interpretation 06-19-2016 [facility] ana Code Service, L LC (42026) Glucose 93 70-110 mg/dL Invalid 06-19-2016 - [facility] Interpretation 06-19-2016 Grou p ([id number]) Code Potassium 3.9 3.5-5.1 mmol/L Invalid 06-19-2016 - [facility] Interpretation 06-19-2016 Grou p ([id number]) Code Sodium 141 136-145 mmol/L Invalid 06-19-2016 - [place] [facility] Interpretation 06-19-2016 Grou p ([id number]) Code Urea nitrogen 23 7-18 mg/dL High 06-19-2016 - [place] [facility] 06-19-2016 Group (44 541) clinical lists update: preload on 2016-05-31 Hematocrit (HCT) 36.8 % Low 05-31-2016 - [place] [facility] 05-31-2016 Group (44 601) Hemoglobin (HGB) 11.9 g/dL Low 05-31-2016 - [place] [facility] 05-31-2016 Group (44 631) Platelets 152 10*3/mm3 Invalid 05-31-2016 - [place] [facility] Interpretation Code 05-31-2016 Group ([id number]) lab report: liver profile on 2016-05-21 Alanine 33 12-78 U/L Invalid 05-21-2016 - [facility] aminotransferase Interpretation 05-21-19 17 Group ([id number]) (ALT) Code Albumin 4.1 3.4-5.0 g/dL Invalid 05-21-2016 - [place] [facility] Interpretation 05-21-2016 Grou p ([id number]) Code Alkaline phosphatase 60 45-117 U/L Invalid 7 - [place] [facility] (ALP) Interpretation 05-21-2016 Grou p ([id number]) Code ALP enzyme act/vol 60 45-117 U/L Invalid 05-21-2016 - [place] (Bld) Interpretation 05-21-2016 Medi ana Code Service, L LC (65550) Aspartate 27 15-37 U/L Invalid 05-21-2016 - [place] [facility] aminotransferase Interpretation 05-21-19 17 Group ([id number]) (AST) Code Bilirubin (direct) 0.06 0.00-0.30 mg/dL Invalid 05-21-2016 - [place] [facility] Interpretation 05-21-2016 Grou p ([id number]) Code Bilirubin (total) 0.40 0.20-1.00 mg/dL Invalid 05-21-2016 - [facility] Interpretation 05-21-2016 Grou p ([id number]) Code Globulin 2.9 2.3-3.5 g/dL Invalid 05-21-2016 - [place] [facility] Interpretation 05-21-2016 Grou p ([id number]) Code Globulin mass conc 2.9 2.3-3.5 g/dL 05-21-2016 - [place] (S) 05-21-2016 Medical Service, LC ([id number]) Protein 7.0 6.4-8.2 g/dL Invalid 05-21-2016 - [facility] Interpretation 05-21-2016 Grou p ([id number]) Code lab report: lipid profile on 2016-05-21 Cholesterol 140 200 mg/dL Invalid 05-21-2016 - [place] [facility] Interpretation Code 05-21-2016 Group ([id number]) HDL Cholesterol 40 mg/dL Invalid 05-21-2016 - [place] [facility] Interpretation Code 05-21-2016 Group ([id number]) LDL Cholesterol 68 0-130 mg/dL Invalid 05-21-2016 - [place] [facility] Interpretation Code 05-21-2016 Group (88788) Triglyceride 158 mg/dL Invalid 05-21-2016 - [facility] Interpretation Code 05-21-2016 Group ([id number]) very low density 32 5-40 mg/dL Invalid 05-21-2016 - [place] [facility] lipoproteins Interpretation Code 017 Group (20511) office visit on 09-09-15 Dietary yes Invalid 03-14-2016 - [place] [facility] management Interpretation Code 6 Group (70511) education, guidance, and counseling (procedure) Tobacco smoking Former Invalid 03-14-2016 - [place] status NHIS smoker Interpretation Code 03-14-20 Medical Service, [facility] (79439 ) Tobacco use CPHS Former Invalid 03-14-2016 - [facility] smoker Interpretation Code 03-14-2016 Group ([id number]) lab report: prothrombin time w/inr on 2016-03-14 Coagulation 18.7 SECONDS 11.7-14.9 High 03-14-2016 - [place] tissue factor 03-14-2016 Heart Group induced in (45699) platelet poor plasma INR in blood by 1.6 {INR Invalid 03-14-2016 - [place] coagulation } Interpretation 03-14-2016 He art Group Code ([id number]) lab report: prothrombin time fingerstick on 2016-02-15 Coagulation 12.9 SEC 11.9-14.4 Invalid 02-15-2016 - [place] tissue factor Interpretation Code 2015 Heart Group induced in (96934) platelet poor plasma lab report: cbc-complete blood cnt no di ff on 2016-01-30 Erythrocyte 44.7 35.1-43.9 fL High 01-30-2016 - [place] [facility] distribution 01-30-2016 Group (61881) width Auto Ratio (RBC) Erythrocyte 44.7 35.1-43.9 fL High 01-30-2016 - [place] distribution 01-30-2016 Medica l width [facility] (RBC) (67789) Erythrocytes 4.60 4.6-6.2 10*6/u Invalid 01-30-2016 - [facility] (RBC) L Interpretation 01-30-2016 Grou p ([id number]) Code MCH 29.8 27.0-32.0 pg Invalid 01-30-2016 - [facility] Interpretation 01-30-2016 Grou p ([id number]) Code MCHC 33.9 32-36 Invalid 01-30-2016 - [place] [facility] G/GL Interpretation 01-30-2016 Grou p ([id number]) Code MCV 87.8 80-94 fL Invalid 01-30-2016 - [place] [facility] Interpretation 01-30-2016 Grou p ([id number]) Code PMV by 9.8 6.2-12.0 fL Invalid 01-30-2016 - [facility] [employer] Interpretation 01-30-2016 [facility] ([id number]) Code RDW SD 44.7 35.1-43.9 fL High 01-30-2016 - [place] [facility] 01-30-2016 Group (44 761) RDW-CA 14.0 11.6-14.6 % Invalid 01-30-2016 - [facility] Interpretation 01-30-2016 Grou p ([id number]) Code red blood cell 44.7 35.1-43.9 fL High 01-30-2016 - [place] [facility] distribution 01-30-2016 Group (80821) width, size density WBC (Leukocytes) 5.5 4.4-11.0 10*9/L Invalid 01-30-2016 - [place] [facility] Interpretation 01-30-2016 Grou p ([id number]) Code clinical lists update: preload on 2016-01-16 Left ventricular 35 % Invalid Interpretation 01-16-2016 - [facility] Ejection fraction Code 01-16-2016 G roup ([id number]) lab report: bedside glucose on 2014-12-15 Glucose 227 70-110 mg/dL High 12-15-2014 - [facility] 12-15-2014 (09621) Glucose mass conc 227 70-110 mg/dL High 12-15-2014 [facility] 12-15-2014 [employer] ([id number]) clinical lists update: preload on 2014-12-08 Cholesterol in 2.93 Invalid 12-08-2014 - [facility] LDL/Cholesterol in HDL Interpretation Co de 12-08-2014 [facility] [employer] (4457 1) Cholesterol to HDL 5.85 High 12-08-2014 - [place] [facility] Ratio 12-08-2014 Group (44 691) HbA1c 7.1 % High 12-08-2014 - [facility] 12-08-2014 Group (44 691) LDL/HDL ratio, serum 2.93 Invalid 5 - [facility] Interpretation Code 12-08-2014 Group ([id number]) office visit on 07-10-15 cardiac risk group C Invalid Interpretatio n 03-14-2014 - [place] [facility] Code 03-14-2014 Group (44 841) General cardiovascular N/A Invalid Interpret ation 03-14-2014 - [place] [facility] disease 10Y risk [#] Code 4 Group (38045) [place] replaced document: midmark ecg observati ons on 2012-03-04 Pulse (Heart 430 ms Invalid Interpretation -0 - [place] [facility] Rate) Code 03-04-2012 Group (44 021) clinical lists update: preload on 2011-03-15 [facility] [facility] 34.7 % Invalid Interpretation 011 - [facility] Code 03-15-2011 ([id number]) [facility] mass conc 34.7 % 03-15-2011 - [facility] ([facility]) 03-15-2011 [employer] ([id number]) Vital Signs Vital Sign Description Value / Unit Date Location The following section is limited to 5 en tries per type and includes entries from the following time range: 20160619 - 5. BMI (Body Mass Index) 38.16 kg/m2 01-01-2017 - 01-01-2017 [facility] ([id number]) BMI (Body Mass Index) 37.35 kg/m2 09-04-2016 - 09-04-2016 [facility] ([id number]) BMI (Body Mass Index) 36.94 kg/m2 06-19-2016 - 06-19-2016 [facility] ([id number]) BP Diastolic 80 mm[Hg] 01-01-2017 - 01-01-2017 [facility] ([id number]) BP Diastolic 50 mm[Hg] 09-04-2016 - 09-04-2016 [facility] ([id number]) BP Diastolic 70 mm[Hg] 06-19-2016 - 06-19-2016 [facility] ([id number]) BP Diastolic 90 mm[Hg] 03-29-2015 - 03-29-2015 [facility] ([id number]) BP Diastolic 96 mm[Hg] 03-29-2015 - 03-29-2015 [facility] ([id number]) BP Systolic 134 mm[Hg] 01-01-2017 - 01-01-2017 [facility] ([id number]) BP Systolic 90 mm[Hg] 09-04-2016 - 09-04-2016 [facility] ([id number]) BP Systolic 110 mm[Hg] 06-19-2016 - 06-19-2016 [facility] ([id number]) BP Systolic 122 mm[Hg] 03-29-2015 - 03-29-2015 [facility] ([id number]) BP Systolic 120 mm[Hg] 03-29-2015 - 03-29-2015 [facility] ([id number]) BSA (Body Surface Area) 2.21 m2 03-14-2016 - 03-14-2016 [facility] ([id number]) Heart rate 81 /min 06-19-2016 - 06-19-2016 [employer] ([id number]) Heart rate 430 ms 03-04-2012 - 03-04-2012 [facility] ([id number]) Height 172.72 cm 01-01-2017 - 01-01-2017 [facility] ([id number]) Height 172.72 cm 09-04-2016 - 09-04-2016 [facility] ([id number]) Height 172.72 cm 06-19-2016 - 06-19-2016 [facility] ([id number]) Pulse (Heart Rate) 64 /min 01-01-2017 - 01-01-2017 [facility] ([id number]) Pulse (Heart Rate) 64 /min 09-04-2016 - 09-04-2016 [facility] ([id number]) Pulse (Heart Rate) 80 /min 06-19-2016 - 06-19-2016 [facility] ([id number]) Respiratory Rate 20 /min 01-01-2017 - 01-01-2017 [facility] ([id number]) Respiratory Rate 20 /min 09-04-2016 - 09-04-2016 [facility] ([id number]) Respiratory Rate 20 /min 06-19-2016 - 06-19-2016 [facility] ([id number]) Weight 113.85 kg 01-01-2017 - 01-01-2017 [facility] ([id number]) Weight 111.45 kg 09-04-2016 - 09-04-2016 [facility] ([id number]) Weight 110.22 kg 06-19-2016 - 06-19-2016 [facility] ([id number]) Encounters Date Type Reason Provider Location 02-17-2017 - Ambulatory [facility] ESTAFANOUS Facility:A 02-17-2017 12-13-2019 - Chart abstracting Morgan langley [place] 12-13-2019 Comment: Outside Lab Results (CBC, BM P) 01-07-2020 - 01-07-2020 Patient encounter [facility] procedure [place] Comment: Non-Urgent Medical Question 12-18-2019 - 12-18-2019 [...] 11-13-2019 - 11-13-2019 Patient encounter Morgan Jesica [facility] procedure [facility] Comment: RE: Non-Urgent [facility] 11-10-2019 - Patient encounter External [facility] 11-10-2019 procedure Provider 01-06-2020 - Refill Type 2 diabetes Morgan Mooney [facility] cine 01-06-2020 mellitus [place] Comment: Refill Request 12-07-2019 - 12-07-2019 Refill Type 2 diabetes Morgan [facility] mellitus [facility] Comment: Refill Request 12-06-2019 Results Only [facility] 11-23-2019 Results Only [facility] 11-10-2019 - Results Only External Provider External-N [facility] 11-10-2019 12-27-2019 - Telephone encounter Mrogan Mooney [facility] 12-27-2019 [facility] Comment: Patient Question 12-20-2019 - Telephone Paroxysmal atrial [facility] mbulatory 12-20-2019 encounter fibrillation (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) Telemanagement Comment: Anticoagulation Telephone Fu (Home INR result) 12-08-2019 - 12-08-2019 Telephone encounter Morgan Mooney [facility] Comment: [facility] OT POC 12-06-2019 - Telephone Paroxysmal [...] Location BMP - EXTERNAL 12-09-2019 [facility] Provider [facility] ([id number]) CBCDIF (EXTERNAL) 12-09-2019 [facility] Provider [facility] ([id number]) INR Coag (PPP) [Relative 12-06-2019 [facility] time[facility] ([id number]) INR Coag (PPP) [Relative 11-23-2019 [facility] time] ([id number]) EXTERNAL CARDIOLOGY 11-10-2019 External Provider [facility] ([id number]) EXTERNAL IMAGING 11-10-2019 External Provider [facility] ([id number]) Colonoscopy 01-06-2018 - [facility] 01-06-2018 ([id number]) Prgrmng dev eval 01-30-2017 - MD [facility] implantable in persn 1 ld 02-02-2017 ([id number] ) dfb Follow Up Appt 3 months 10-30-2016 - MD [facility] 12-17-2016 ([id number]) Pacer Clinic 10-30-2016 - MD [facility] 12-17-2016 ([id number]) Prgrmng dev eval 10-30-2016 - MD [facility] implantable in persn 1 ld 10-30-2016 ([id number] ) dfb Icd device prog eval, 1 10-30-2016 - MD [facility] sngl 10-30-2016 ([id number]) Follow Up Appt 3 months 09-04-2016 - MD [facility] 12-17-2016 ([id number]) MMM 09-04-2016 - MD [facility] 12-17-2016 ([id number]) Follow Up Appt 3 months 07-30-2016 - MD [facility] 11-17-2016 ([id number]) Pacer Clinic 07-30-2016 - MD [facility] 11-17-2016 ([id number]) Prgrmng dev eval 07-30-2016 - MD [facility] implantable in persn 1 ld 07-30-2016 ([id number] ) dfb Icd device prog eval, 1 07-30-2016 - MD [facility] sngl 11-17-2016 ([id number]) Pacer Clinic 07-30-2016 - MD Darlyn Rogers Md dical 11-17-2016 [employer] ([id number]) *BMP 06-19-2016 - MD [facility] 06-19-2016 ([id number]) BODS DEVELOPER 06-19-2016 - MD [facility] 06-19-2016 ([id number]) Follow Up Appt 3 months 06-19-2016 - MD [facility] 11-17-2016 ([id number]) Magnesium [Mass/volume] in 06-19-2016 - MD [facility] Serum or Plasma 06-19-2016 ([id number]) Pacer Clinic 06-19-2016 - MD [facility] 11-17-2016 ([id number]) Prgrmng dev eval 06-19-2016 - MD [facility] implantable in persn 1 ld 06-23-2016 ([id number] ) dfb Referral to gantry rigger 06-19-2016 - MD [facility] 06-20-2016 ([id number]) *BMP 06-19-2016 - MD [facility] 06-19-2016 ([id number]) BODS DEVELOPER 06-19-2016 - MD [facility] 06-19-2016 ([id number]) Follow Up Appt 3 months 06-19-2016 - MD [facility] 11-17-2016 ([id number]) Icd device prog eval, 1 06-19-2016 - MD [facility] sngl 06-23-2016 ([id number]) Magnesium 06-19-2016 - MD [facility] 06-19-2016 ([id number]) Pacer Clinic 06-19-2016 - MD Darlyn Rogers Md dical 11-17-2016 [employer] ([id number] [phone]) Referral to gantry rigger 06-19-2016 - Johan Perry MD [facility] 06-20-2016 [employer] ([id number]) *Hepatic Function Panel 05-21-2016 - MD [facility] 05-21-2016 ([id number]) Lipid 1996 panel - Serum or 05-21-2016 - MD Paul[facility] Plasma 05-21-2016 ([id number]) *Hepatic Function Panel 05-21-2016 - MD [facility] 05-21-2016 ([id number]) Lipid panel [AGGREGATE] 05-21-2016 - MD [facility] 05-21-2016 ([id number]) Follow Up Appt 3 months 04-30-2016 - MD [facility] 11-17-2016 ([id number]) Pacer Clinic 04-30-2016 - MD [facility] 11-17-2016 ([id number]) Prgrmng dev eval 04-30-2016 - MD [facility] implantable in persn 1 ld 11-17-2016 ([id number] ) dfb Icd device prog eval, 1 04-30-2016 - MD [facility] sngl 11-17-2016 ([id number]) Pacer Clinic 04-30-2016 - MD Darlyn Rogers Me dical 11-17-2016 [employer] ([id number]) Carotid duplex 03-14-2016 - MD [facility] 04-01-2016 ([id number]) Follow Up Appt 3 months 03-14-2016 - MD [facility] 03-14-2016 ([id number]) INR in Platelet poor plasma 03-14-2016 - MD [facility] by Coagulation assay 03-14-2016 ([id number]) MMM 03-14-2016 - MD [facility] 03-14-2016 ([id number]) Dietary management 03-14-2016 - Darlyn galaviz education, guidance, and 03-14-2016 [employer] ([id number]) counseling Carotid duplex 03-14-2016 - MD [facility] 04-01-2016 ([id number]) Coagulation factor 03-14-2016 - MD [facility] induced.INR assay in 03-14-2016 ([id number]) platelet poor plasma Follow Up Appt 3 months 03-14-2016 - MD [facility] 03-14-2016 ([id number]) MMM 03-14-2016 - MD [facility] 03-14-2016 ([id number]) *BMP 01-30-2016 - MD [facility] 01-30-2016 ([id number]) CBC W Auto Differential 01-30-2016 - MD [facility] panel - Blood 01-30-2016 ([id number]) Chest x-ray 01-30-2016 - MD [facility] 02-08-2016 ([id number]) Ecg routine ecg w/least 12 01-30-2016 - MD [facility] lds w/i&r 01-30-2016 ([id number]) Follow Up Appt 6 weeks 01-30-2016 - MD [facility] 01-30-2016 ([id number]) INR in Platelet poor plasma 01-30-2016 - MD Pauline [facility] by Coagulation assay 01-30-2016 ([id number]) Left Heart Cath 01-30-2016 - MD [facility] 05-21-2016 ([id number]) MMM 01-30-2016 - MD [facility] 01-30-2016 ([id number]) Us abdominal real time 01-30-2016 - MD [facility] w/image limited 02-08-2016 ([id number]) *BMP 01-30-2016 - MD [facility] 01-30-2016 ([id number]) CBC W Auto Differential 01-30-2016 - MD [facility] panel - Blood 01-30-2016 ([id number]) Chest x-ray 01-30-2016 - MD [facility] 02-08-2016 ([id number]) Coagulation factor 01-30-2016 - MD [facility] induced.INR assay in 01-30-2016 ([id number]) platelet poor plasma Echo exam of abdomen 01-30-2016 - MD [facility] 02-08-2016 ([id number]) Electrocardiogram, complete 01-30-2016 - MD Pauline [facility] 01-30-2016 ([id number]) Follow Up Appt 6 weeks 01-30-2016 - MD [facility] 01-30-2016 ([id number]) Left Heart Cath 01-30-2016 - MD [facility] 05-21-2016 ([id number]) MMM 01-30-2016 - MD [facility] 01-30-2016 ([id number]) Follow Up Appt 3 months 01-23-2016 - [facility] 11-17-2016 PA-C ([id number]) Pacer Clinic 01-23-2016 - [facility] 11-17-2016 PA-C ([id number]) Prgrmng dev eval 01-23-2016 - [facility] implantable in persn 1 ld 01-23-2016 PA-C ([id number] ) dfb Chest x-ray 01-23-2016 - Melany Khanna [facility] 11-17-2016 PA-C Service, [employer] ([id number] [phone]) Ecg routine ecg w/least 12 01-23-2016 - Melany Khanna [facility] w/i&r 11-17-2016 PA-C Service, [employer] ([id number] [phone]) Icd device prog eval, 1 01-23-2016 - Pauline Tim[facility] sngl 01-23-2016 PA-C ([id number]) *Hepatic Function Panel 11-05-2015 - MD [facility] 11-20-2015 ([id number]) Lipid 1996 panel - Serum or 11-05-2015 - Johan Perry MD [facility] Plasma 11-20-2015 ([id number]) *Hepatic Function Panel 11-05-2015 - MD [facility] 11-20-2015 ([id number]) Lipid panel [AGGREGATE] 11-05-2015 - MD [facility] 11-20-2015 ([id number]) Follow Up Appt 3 months 10-18-2015 - Jorge [facility] 02-08-2016 ([id number]) Pacer Clinic 10-18-2015 - [facility] 02-08-2016 ([id number]) Prgrmng dev eval 10-18-2015 - [facility] implantable in persn 1 ld 10-18-2015 ([id number] ) dfb Follow Up Appt 3 months 10-18-2015 - [facility] 02-08-2016 ([id number]) Icd device prog eval, 1 10-18-2015 - [facility] sngl 10-18-2015 ([id number]) Pacer Clinic 10-18-2015 - [facility] 02-08-2016 ([id number]) Follow Up Appt 3 months 07-18-2015 - MD [facility] 02-08-2016 ([id number]) Pacer Clinic 07-18-2015 - MD [facility] 02-08-2016 ([id number]) Prgrmng dev eval 07-18-2015 - MD [facility] implantable in persn 1 ld 07-18-2015 ([id number] ) dfb Follow Up Appt 3 months 07-18-2015 - MD [facility] 02-08-2016 ([id number]) Icd device prog eval, 1 07-18-2015 - MD [facility] sngl 02-08-2016 ([id number]) Pacer Clinic 07-18-2015 - MD [facility] 02-08-2016 ([id number]) BODS DEVELOPER 07-03-2015 - MD [facility] 07-03-2015 ([id number]) Follow Up Appt 6 months 07-03-2015 - MD [facility] 07-03-2015 ([id number]) BODS DEVELOPER 07-03-2015 - Johan Perry MD [facility] 07-03-2015 ([id number]) Follow Up Appt 6 months 07-03-2015 - MD [facility] 07-03-2015 ([id number]) *Hepatic Function Panel 06-20-2015 - Melany Khanna [facility] 06-20-2015 PA-C ([id number]) Lipid 1996 panel - Serum or 06-20-2015 - Melany Khanna [facility] Plasma 06-20-2015 PA-C ([id number]) *Hepatic Function Panel 06-20-2015 - Melany Khanna [facility] 06-20-2015 PA-C ([id number]) Lipid panel [AGGREGATE] 06-20-2015 - Melany Khanna [facility] 06-20-2015 PA-C ([id number]) Follow Up Appt 3 months 04-13-2015 - MD [facility] 02-08-2016 ([id number]) Pacer Clinic 04-13-2015 - Johan Perry MD [facility] 02-08-2016 ([id number]) Prgrmng dev eval 04-13-2015 - MD [facility] implantable in persn 1 ld 04-14-2015 ([id number] ) dfb Follow Up Appt 3 months 04-13-2015 - MD [facility] 02-08-2016 ([id number]) Icd device prog eval, 1 04-13-2015 - MD [facility] sngl 04-14-2015 ([id number]) Pacer Clinic 04-13-2015 - MD [facility] 02-08-2016 ([id number]) Us abdominal real time 04-11-2015 - MD [facility] w/image limited 04-12-2015 ([id number]) Echo exam of abdomen 04-11-2015 - MD [facility] 04-12-2015 ([id number]) External Counterpulsation 04-06-2015 - [facility] Therapy 11-17-2016 PA-C ([id number]) Prgrmng dev eval 04-06-2015 - Juan [facility]mons [facility] implantable in persn 1 ld 11-17-2016 PA-C [employer] ([id number]) dfb BODS DEVELOPER 03-29-2015 - [facility] 03-29-2015 PA-C ([id number]) Follow Up Appt 3 months 03-29-2015 - Melany Khanna [facility] 03-29-2015 PA-C ([id number]) BODS DEVELOPER 03-29-2015 - Melany Khanna [facility] 03-29-2015 PA-C ([id number]) Follow Up Appt 3 months 03-29-2015 - Melany Khanna [facility] 03-29-2015 PA-C ([id number]) Follow Up Appt 3 months 01-05-2015 - Melany Khanna [facility] 03-05-2015 PA-C ([id number]) Pacer Clinic 01-05-2015 - [facility] 03-05-2015 PA-C ([id number]) Prgrmng dev eval 01-05-2015 - [facility] implantable in persn 1 ld 01-08-2015 PA-C ([id number] ) dfb Follow Up Appt 3 months 01-05-2015 - Melany Khanna [facility] 03-05-2015 PA-C ([id number]) Icd device prog eval, 1 01-05-2015 - Melany Khanna, [facility] sngl 01-08-2015 PA-C ([id number]) Pacer Clinic 01-05-2015 - Melany Khanna, [facility] 03-05-2015 PA-C ([id number]) Cardiac Rehab 12-27-2014 - MD [facility] 03-05-2015 ([id number]) Documentation of current 12-27-2014 - MD [facility] medications 12-28-2014 ([id number]) Follow Up Appt 3 months 12-27-2014 - MD [facility] 12-27-2014 ([id number]) MMM 12-27-2014 - MD [facility] 12-27-2014 ([id number]) Pedal pulse taking 12-27-2014 - MD [facility] 12-28-2014 ([id number]) Cardiac Rehab 12-27-2014 - MD Paul[facility] 03-05-2015 ([id number]) Documentation of current 12-27-2014 - Johan Perry MD [facility] medications 12-28-2014 ([id number]) Follow Up Appt 3 months 12-27-2014 - MD [facility] 12-27-2014 ([id number]) MMM 12-27-2014 - Johan Perry MD [facility] 12-27-2014 ([id number]) Pedal pulse taking 12-27-2014 - MD [facility] 12-28-2014 ([id number]) Follow Up BP Check 12-11-2014 - Melany Khanna [place] [facility] 12-11-2014 PA-C ([id number]) Left Heart Cath 12-11-2014 - MD [facility] 03-05-2015 ([id number]) Follow Up BP Check 12-11-2014 - Melany Khanna [place] [facility] [facility] 12-11-2014 PA-C ([id number]) Left Heart Cath 12-11-2014 - MD [facility] 03-05-2015 ([id number]) *BMP 12-06-2014 - [facility] 12-06-2014 PA-C ([id number]) Documentation of current 12-06-2014 - [facility] 12-07-2014 PA-C ([id number]) Follow Up Appt Other 12-06-2014 - Melany Khanna [facility] 12-06-2014 PA-C ([id number]) *BMP 12-06-2014 - [facility] 12-06-2014 PA-C ([id number]) Documentation of current 12-06-2014 - Alej[facility] medications 12-07-2014 PA-C ([id number]) Follow Up Appt Other 12-06-2014 - Melany Khanna [facility] 12-06-2014 PA-C ([id number]) Lipid 1996 panel - Serum or 11-28-2014 - Melany Khanna [place] [facility] Plasma 12-21-2014 PA-C ([id number]) Lipid panel [AGGREGATE] 11-28-2014 - Melany Khanna [facility] 12-21-2014 PA-C ([id number]) Documentation of current 11-03-2014 - Johan Perry MD [facility] medications 11-04-2014 ([id number]) Follow Up Appt 6 months 11-03-2014 - MD [facility] 11-03-2014 ([id number]) MMM 11-03-2014 - MD [facility] 11-03-2014 ([id number]) Pedal pulse taking 11-03-2014 - MD [facility] 11-04-2014 ([id number]) Preoperative cardiovascular 11-03-2014 - [facility] examination 12-25-2014 ([id number]) Documentation of current 11-03-2014 - Johan Perry MD [facility] medications 11-04-2014 ([id number]) Follow Up Appt 6 months 11-03-2014 - MD [facility] 11-03-2014 ([id number]) MMM 11-03-2014 - MD [facility] 11-03-2014 ([id number]) Pedal pulse taking 11-03-2014 - MD [facility] 11-04-2014 ([id number]) Preoperative cardiovascular 11-03-2014 - [place] [facility] examination 12-25-2014 [employer] ([id number]) [facility] 09-27-2014 - [facility] 09-27-2014 PA-C ([id number]) Documentation of current 09-27-2014 - Alejandro Timmons [facility] medications 09-28-2014 PA-C ([id number]) Ecg routine ecg w/least 12 09-27-2014 - [facility] lds w/i&r 11-03-2014 PA-C Johan Perry MD ([id number]) Follow Up Appt 3 months 09-27-2014 - MD [facility] 11-03-2014 ([id number]) Follow Up Appt 6 months 09-27-2014 - Pauline Tim[facility] 09-27-2014 PA-C ([id number]) Pacer Clinic 09-27-2014 - MD [facility] 11-03-2014 ([id number]) Pedal pulse taking 09-27-2014 - Melany Khanna [place] [facility] 09-28-2014 PA-C ([id number]) Prgrmng dev eval 09-27-2014 - Johan Perry MD [place] [facility] implantable in persn 1 ld 09-28-2014 ([id number] ) dfb BODS DEVELOPER 09-27-2014 - [facility] 09-27-2014 PA-C ([id number]) Documentation of current 09-27-2014 - Ale[facility] medications 09-28-2014 PA-C ([id number]) Follow Up Appt 3 months 09-27-2014 - Johan Perry MD [facility] 11-03-2014 ([id number]) Follow Up Appt 6 months 09-27-2014 - Melany Khanna [facility] 09-27-2014 PA-C ([id number]) Icd device prog eval, 1 09-27-2014 - Johan Perry MD [facility] sngl 09-28-2014 ([id number]) Pacer Clinic 09-27-2014 - Johan Perry MD [facility] 11-03-2014 ([id number]) Pedal pulse taking 09-27-2014 - Melany Khanna [facility] 09-28-2014 PA-C ([id number]) Pulse (Heart Rate) 09-27-2014 - Melany Khanna [facility] 11-03-2014 PA-C Johan Perry MD ([id number]) *Hepatic Function Panel 07-28-2014 - Johan Perry MD [facility] 08-25-2014 ([id number]) Lipid 1996 panel - Serum or 07-28-2014 - Johan Perry MD [facility] Plasma 08-25-2014 ([id number]) *Hepatic Function Panel 07-28-2014 - Johan Perry MD [facility] 08-25-2014 ([id number]) Lipid panel [AGGREGATE] 07-28-2014 - Johan Perry MD [facility] 08-25-2014 ([id number]) Follow Up Appt 3 months 06-12-2014 - Melany Khanna [facility] 09-15-2014 PA-C ([id number]) Pacer Clinic 06-12-2014 - [facility] 09-15-2014 PA-C ([id number]) Prgrmng dev eval 06-12-2014 - [facility] implantable in persn 1 ld 06-13-2014 PA-C ([id number] ) dfb Follow Up Appt 3 months 06-12-2014 - Melany Khanna [facility] 09-15-2014 PA-C ([id number]) Icd device prog eval, 1 06-12-2014 - Melany Khanna [facility] sngl 06-13-2014 PA-C ([id number]) Pacer Clinic 06-12-2014 - [facility] 09-15-2014 PA-C ([id number]) Follow Up Appt 3 months 03-14-2014 - Johan Perry MD [facility] 09-15-2014 ([id number]) Follow Up Appt 6 months 03-14-2014 - MD [facility] 03-14-2014 ([id number]) [facility] 03-14-2014 - Johan Perry MD [place] [facility] 03-14-2014 ([id number]) Pacer Clinic 03-14-2014 - MD Pauline [facility] 09-15-2014 ([id number]) Prgrmng dev eval 03-14-2014 - Johan Perry MD [place] [facility] implantable in persn 1 ld 03-14-2014 ([id number] ) dfb Follow Up Appt 3 months 03-14-2014 - Johan Perry MD [facility] 09-15-2014 ([id number]) Follow Up Appt 6 months 03-14-2014 - MD [facility] 03-14-2014 ([id number]) Icd device prog eval, 1 03-14-2014 - Johan Perry MD [facility] sn 03-14-2014 ([id number]) [facility] 03-14-2014 - Johan Perry MD [place] [facility] 03-14-2014 ([id number]) Pacer Clinic 03-14-2014 - Johan Perry MD [facility] 09-15-2014 ([id number]) *Hepatic Function Panel 01-28-2014 - MD [facility] 02-06-2014 ([id number]) Lipid 1996 panel - Serum or 01-28-2014 - Johan Perry MD [facility] Plasma 02-06-2014 ([id number]) *Hepatic Function Panel 01-28-2014 - MD [facility] 02-06-2014 ([id number]) Lipid panel [AGGREGATE] 01-28-2014 - MD [facility] 02-06-2014 ([id number]) Follow Up Appt 2 months 12-16-2013 - MD [facility] 09-15-2014 ([id number]) Pacer Clinic 12-16-2013 - Johan Perry MD [place] [facility] 09-15-2014 ([id number]) Prgrmng dev eval 12-16-2013 - MD [facility] implantable in persn 1 ld 09-15-2014 ([id number] ) dfb Follow Up Appt 2 months 12-16-2013 - MD [facility] 09-15-2014 ([id number]) Icd device prog eval, 1 12-16-2013 - MD [facility] sngl 09-15-2014 ([id number]) Pacer Clinic 12-16-2013 - Johan Perry MD [facility] 09-15-2014 ([id number]) Follow Up Appt 3 months 09-15-2013 - MD [facility] 09-15-2014 ([id number]) Pacer Clinic 09-15-2013 - Johan Perry MD [facility] 09-15-2014 ([id number]) Prgrmg eval implantable in 09-15-2013 - MD Jose [facility] prsn dual lead dfb 09-15-2013 ([id number]) Follow Up Appt 3 months 09-15-2013 - MD [facility] 09-15-2014 ([id number]) Icd device progr eval, dual 09-15-2013 - Johan Perry MD [facility] 09-15-2013 ([id number]) Pacer Clinic 09-15-2013 - MD [facility] 09-15-2014 ([id number]) BODS DEVELOPER 09-06-2013 - Melany Khanna [facility] 09-06-2013 PA-C ([id number]) Follow Up Appt 6 months 09-06-2013 - Melany Khanna [facility] 09-06-2013 PA-C ([id number]) BODS DEVELOPER 09-06-2013 - Melany [facility]anna[facility] 09-06-2013 PA-C ([id number]) Follow Up Appt 6 months 09-06-2013 - Melany Khanna [facility] 09-06-2013 PA-C ([id number]) *Hepatic Function Panel 07-28-2013 - MD [facility] 08-09-2013 ([id number]) Lipid 1996 panel - Serum or 07-28-2013 - Johan Perry MD [facility] Plasma 08-09-2013 ([id number]) *Hepatic Function Panel 07-28-2013 - MD [facility] 08-09-2013 ([id number]) Lipid panel [AGGREGATE] 07-28-2013 - MD [facility] 08-09-2013 ([id number]) Follow Up Appt 3 months 06-08-2013 - MD [facility] 08-25-2013 ([id number]) Pacer Clinic 06-08-2013 - MD [facility] 08-25-2013 ([id number]) Prgrmng dev eval 06-08-2013 - MD [facility] implantable in persn 1 ld 06-08-2013 ([id number] ) dfb Follow Up Appt 3 months 06-08-2013 - MD [facility] 08-25-2013 ([id number]) Icd device prog eval, 1 06-08-2013 - MD [facility] 06-08-2013 ([id number]) Pacer Clinic 06-08-2013 - MD [facility] 08-25-2013 ([id number]) Follow Up Appt 3 months 03-09-2013 - MD [facility] 05-17-2013 ([id number]) Pacer Clinic 03-09-2013 - MD [facility] 05-17-2013 ([id number]) Prgrmng dev eval 03-09-2013 - MD [facility] implantable in persn 1 ld 03-09-2013 ([id number] ) dfb Follow Up Appt 3 months 03-09-2013 - MD [facility] 05-17-2013 ([id number]) Pacer Clinic 03-09-2013 - MD [facility] 05-17-2013 ([id number]) Ecg routine ecg w/least 12 03-08-2013 - MD [facility] lds w/i&r 05-17-2013 ([id number]) Follow Up Appt 6 months 03-08-2013 - MD [facility] 05-17-2013 ([id number]) Icd device prog eval, 1 03-08-2013 - MD [facility] 05-17-2013 ([id number]) MMM 03-08-2013 - MD [facility] 05-17-2013 ([id number]) Electrocardiogram, complete 03-08-2013 - MD [facility] 05-17-2013 ([id number]) Follow Up Appt 6 months 03-08-2013 - MD [facility] 05-17-2013 ([id number]) MMM 03-08-2013 - MD [facility] 05-17-2013 ([id number]) *Hepatic Function Panel 01-28-2013 - MD [facility] 02-04-2013 ([id number]) Lipid 1996 panel - Serum or 01-28-2013 - MD [facility] Plasma 02-04-2013 ([id number]) *Hepatic Function Panel 01-28-2013 - MD [facility] 02-04-2013 ([id number]) Lipid panel [AGGREGATE] 01-28-2013 - MD [facility] 02-04-2013 ([id number]) Follow Up Appt 3 months 12-08-2012 - MD [facility] 05-17-2013 ([id number]) Pacer Clinic 12-08-2012 - MD [facility] 05-17-2013 ([id number]) Prgrmng dev eval 12-08-2012 - MD [facility] implantable in persn 1 ld 12-08-2012 ([id number] ) dfb Follow Up Appt 3 months 12-08-2012 - MD [facility] 05-17-2013 ([id number]) Icd device prog eval, 1 12-08-2012 - MD [facility] 12-08-2012 ([id number]) Pacer Clinic 12-08-2012 - MD [facility] 05-17-2013 ([id number]) Follow Up Appt 6 months 11-25-2012 - MD [facility] 11-25-2012 ([id number]) [facility] 11-25-2012 - Johan Perry MD [facility] 11-25-2012 ([id number]) Follow Up Appt 6 months 11-25-2012 - MD [facility] 11-25-2012 ([id number]) [facility] 11-25-2012 - Johan Perry MD [facility] 11-25-2012 ([id number]) Follow Up Appt 3 months 09-03-2012 - MD [facility] 05-17-2013 ([id number]) Pacer Clinic 09-03-2012 - MD [facility] 05-17-2013 ([id number]) Prgrmng dev eval 09-03-2012 - MD [facility] implantable in persn 1 ld 09-03-2012 ([id number] ) dfb Follow Up Appt 3 months 09-03-2012 - MD [facility] 05-17-2013 ([id number]) Icd device prog eval, 1 09-03-2012 - Johan Perry MD [facility] 09-03-2012 ([id number]) Pacer Clinic 09-03-2012 - Johan Perry MD [facility] 05-17-2013 ([id number]) *BMP 09-01-2012 - Rhaul W [facility] 05-17-2013 Héctor SIMMONS ([id number]) *Hepatic Function Panel 09-01-2012 - Rahul W [facility] 05-17-2013 Héctor SIMMONS ([id number]) Lipid 1996 panel - Serum or 09-01-2012 - Rahul W [facility] Plasma 05-17-2013 Héctor SIMMONS ([id number]) Magnesium [Mass/volume] in 09-01-2012 - [facility] Serum or Plasma 05-17-2013 Héctor SIMMONS ([id number]) *BMP 09-01-2012 - [facility]ul [facility] 05-17-2013 Héctor SIMMONS ([id number]) *Hepatic Function Panel 09-01-2012 - Rahul W [facility] 05-17-2013 Héctor SIMMONS ([id number]) Lipid panel [AGGREGATE] 09-01-2012 - Rahul W [facility] 05-17-2013 Héctor SIMMONS ([id number]) Magnesium 09-01-2012 - [facility] 05-17-2013 H[facility]ctor SIMMONS ([id number]) Follow Up Appt 6 months 03-04-2012 - Rahul W [facility] 03-04-2012 Héctor SIMMONS ([id number]) Follow Up Appt 6 months 03-04-2012 - Rahul W [facility] 03-04-2012 Héctor SIMMONS ([id number]) *Hepatic Function Panel 02-04-2012 - Rahul [facility] 02-11-2012 Héctor SIMMONS ([id number]) Lipid 1996 panel - Serum or 02-04-2012 - [facility]ul [facility] Plasma 02-11-2012 Héctor SIMMONS ([id number]) *Hepatic Function Panel 02-04-2012 - Rahul W [facility] 02-11-2012 Héctor SIMMONS ([id number]) Lipid panel [AGGREGATE] 02-04-2012 - Rahul W [facility] 02-11-2012 Héctor SIMMONS ([id number]) Follow Up Appt 4 months 11-24-2011 - Rahul W [facility] 11-24-2011 Héctor SIMMONS ([id number]) Follow Up Appt 4 months 11-24-2011 - Rahul W [facility] 11-24-2011 Héctor SIMMONS ([id number]) *Hepatic Function Panel 10-27-2011 - Rahul W [facility] 10-27-2011 Héctor SIMMONS ([id number]) Lipid 1996 panel - Serum or 10-27-2011 - Rahul [facility] Plasma 10-27-2011 Héctor SIMMONS ([id number]) *Hepatic Function Panel 10-27-2011 - Rahul W [facility] 10-27-2011 Héctor SIMMONS ([id number]) Lipid panel [AGGREGATE] 10-27-2011 - Rahul W [facility] 10-27-2011 Héctor SIMMONS ([id number]) *BMP 10-16-2011 - [facility] 10-27-2011 H[facility]ctor SIMMONS ([id number]) *BMP 10-16-2011 - [facility]ul [facility] 10-27-2011 Héctor SIMMONS ([id number]) Ecg routine ecg w/least 08-26-2011 - [facility]ul [facility] lds w/i&r 08-26-2011 Héctor SIMMONS ([id number]) Follow Up Appt 3 months 08-26-2011 - Rahul W [facility] 08-26-2011 Héctor SIMMONS ([id number]) Electrocardiogram, complete 08-26-2011 - Rahul W [facility] 08-26-2011 Héctor SIMMONS ([id number]) Follow Up Appt 3 months 08-26-2011 - Rahul W [facility] 08-26-2011 Héctor SIMMONS ([id number]) Ecg routine ecg w/least 12 06-27-2011 - [facility] lds w/i&r 06-27-2011 Héctor SIMMONS ([id number]) Follow Up Appt 2 months 06-27-2011 - Rahul Allen [facility] 06-27-2011 Héctor SIMMONS ([id number]) Follow Up Appt 2 months 06-27-2011 - Rahul Allen [facility] 06-27-2011 Héctor SIMMONS ([id number]) Lipid panel [AGGREGATE] 06-27-2011 - Rahul Allen [facility] 06-27-2011 Héctor SIMMONS ([id number]) Follow Up Appt 4 months 06-10-2011 - Rahul Allen [facility] 06-10-2011 Héctor SIMMONS ([id number]) Follow Up Appt 4 months 06-10-2011 - Rahul Allen [facility] 06-10-2011 Héctor SIMMONS ([id number]) Implantation of automatic 07-16-2010 [facility] cardiac defibrillator ([id number]) Placement of stent in 07-16-2010 [facility] coronary artery ([id number]) Implantation of automatic 07-16-2010 [facility] cardiac defibrillator Service, [facility] ([id number]) Plan of Treatment Plan Description Date Location COLONOSCOPY COLONOSCOPY 01-07-2028 - [facility] 01-07-2028 ([id number]) COLORECTAL CANCER COLORECTAL CANCER 01-07-2028 - [facility] SCREENING,SEE MODIFIER SCREENING,SEE MODIFIER 01-07-2028 ([id number]) DTAP,TDAP,TD (3 - Td) DTAP,TDAP,TD (3 - Td) 10-17-2027 - [facility] 10-17-2027 ([id number]) ADVANCE DIRECTIVE ADVANCE DIRECTIVE 10-26-2024 - [facility] DISCUSSION DISCUSSION 10-26-2024 ([id number]) HEMOGLOBIN/HEMATOCRIT HEMOGLOBIN/HEMATOCRIT 12-08-2020 - [facility] 12-08-2020 ([id number]) DIABETIC FOOT EXAM DIABETIC FOOT EXAM 11-26-2020 - [facility] 11-26-2020 ([id number]) Comment: Postponed from 07/16/2019 (C urrent Illness) ANNUAL PCP TEAM ANNUAL PCP TEAM 10-26-2020 - [facility] CHRONIC DISEASE VISIT CHRONIC DISEASE VISIT 10-26-2020 ([id number]) BP CONTROLLED BP CONTROLLED 10-26-2020 - [facility] (<130/80) (<130/80) 10-26-2020 ([id number]) SHINGRIX VACCINE (1 of SHINGRIX VACCINE (1 of 10-26-2020 - [facility] 2) 2) 10-26-2020 ([id number]) Comment: Postponed from 10/20/1995 (D eclined at this time) URINE ALBUMIN:CREATININE URINE ALBUMIN:CREATININE 10-13-2020 - [facility] RATIO RATIO 10-13-2020 ([id number]) LDL CHOLESTEROL LDL CHOLESTEROL 10-13-2020 - [facility] 10-13-2020 ([id number]) SERUM CREATININE SERUM CREATININE 10-13-2020 - [facility] 10-13-2020 ([id number]) DILATED RETINAL EXAM DILATED RETINAL EXAM 08-10-2020 - [facility] 08-10-2020 ([id number]) HBA1C HBA1C 04-15-2020 - [facility] 04-15-2020 ([id number]) HEMOGLOBIN/HEMATOCRIT HEMOGLOBIN/HEMATOCRIT 01-15-2020 - [facility] 01-15-2020 ([id number]) INFLUENZA (#1) INFLUENZA (#1) 2019 - [facility] 11-29-2019 ([id number]) Appointment Appointment 07-07-2017 - [facility] 07-07-2017 Group ([id number]) Appointment Appointment 05-04-2017 - [facility] 05-04-2017 Group ([id number]) Follow Up Appt 3 months Follow Up Appt 3 months 01-30-2017 - [facility] 02-02-2017 Group ([id number]) Pacer Clinic Pacer Clinic 01-30-2017 - [facility] 02-02-2017 Group ([id number]) Appointment Appointment 01-30-2017 - [facility] 01-30-2017 Group ([id number]) Appointment Appointment 01-01-2017 - [facility] 01-01-2017 Group ([id number]) BODS DEVELOPER BODS DEVELOPER 01-01-2017 - [facility] 01-01-2017 Group ([id number]) Follow Up Appt 6 months Follow Up Appt 6 months 01-01-2017 - [facility] 01-01-2017 Group ([id number]) Appointment Appointment 12-24-2016 - [facility] 12-24-2016 Group ([id number]) *Hepatic Function Panel *Hepatic Function Panel 11-18-2016 - [facility] 05-22-2016 Group ([id number]) *Lipid Profile CC PCP *Lipid Profile CC PCP 11-18-2016 - [facility] 05-22-2016 Group ([id number]) Follow Up Appt 3 months Follow Up Appt 3 months 10-30-2016 - [facility] 12-17-2016 Group ([id number]) Pacer Clinic Pacer Clinic 10-30-2016 - [facility] 12-17-2016 Group ([id number]) Appointment Appointment 10-30-2016 - [facility] 10-30-2016 Group ([id number]) Appointment Appointment 10-30-2016 - [facility] 10-30-2016 Group ([id number]) Follow Up Appt 3 months Follow Up Appt 3 months 10-30-2016 - [facility] 10-30-2016 Group ([id number]) Pacer Clinic Pacer Clinic 10-30-2016 - [facility] 10-30-2016 Group ([id number]) Appointment Appointment 09-18-2016 - [facility] 09-18-2016 Group ([id number]) Appointment Appointment 09-04-2016 - [facility] 09-04-2016 Group ([id number]) Appointment Appointment 09-04-2016 - [facility] 09-04-2016 Group ([id number]) Follow Up Appt 3 months Follow Up Appt 3 months 09-04-2016 - [facility] 12-17-2016 Group ([id number]) MMM MMM 09-04-2016 - [facility] 12-17-2016 Group ([id number]) Follow Up Appt 3 months Follow Up Appt 3 months 09-04-2016 - [facility] 09-04-2016 Group ([id number]) MMM MMM 09-04-2016 - [facility] 09-04-2016 Group ([id number]) Follow Up Appt 3 months Follow Up Appt 3 months 07-30-2016 - [facility] 11-17-2016 Group ([id number]) Pacer Clinic Pacer Clinic 07-30-2016 - [facility] 11-17-2016 Group ([id number]) Appointment Appointment 07-30-2016 - [facility] 07-30-2016 Group ([id number]) Follow Up Appt 3 months Follow Up Appt 3 months 07-30-2016 - [facility] 11-17-2016 Group ([id number]) Pacer Clinic Pacer Clinic 07-30-2016 - [facility] 11-17-2016 Group ([id number]) *BMP *BMP 06-19-2016 - [facility] 06-19-2016 Group ([id number]) Cardiac Rehab Cardiac Rehab 06-19-2016 - [facility] 11-17-2016 Group ([id number]) BODS DEVELOPER BODS DEVELOPER 06-19-2016 - [facility] 06-19-2016 Group ([id number]) Follow Up Appt 3 months Follow Up Appt 3 months 06-19-2016 - [facility] 11-17-2016 Group ([id number]) *Magnesium *Magnesium 06-19-2016 - [facility] 06-19-2016 Group ([id number]) Pacer Clinic Pacer Clinic 06-19-2016 - [facility] 11-17-2016 Group ([id number]) *BMP *BMP 06-19-2016 - [facility] 06-19-2016 Group ([id number]) Cardiac Rehab Cardiac Rehab 06-19-2016 - [facility] 11-17-2016 Group ([id number]) BODS DEVELOPER BODS DEVELOPER 06-19-2016 - [facility] 06-19-2016 Group ([id number]) Follow Up Appt 3 months Follow Up Appt 3 months 06-19-2016 - [facility] 11-17-2016 Group ([id number]) *Magnesium *Magnesium 06-19-2016 - [facility] 06-19-2016 Group ([id number]) Pacer Clinic Pacer Clinic 06-19-2016 - [facility] 11-17-2016 Group ([id number]) *Hepatic Function Panel *Hepatic Function Panel 05-21-2016 - [facility] 05-21-2016 Group ([id number]) *Lipid Profile CC PCP *Lipid Profile CC PCP 05-21-2016 - [facility] 05-21-2016 Group ([id number]) *Hepatic Function Panel *Hepatic Function Panel 05-21-2016 - [facility] 05-21-2016 Group ([id number]) *Lipid Profile CC PCP *Lipid Profile CC PCP 05-21-2016 - [facility] 05-21-2016 Group ([id number]) Follow Up Appt 3 months Follow Up Appt 3 months 04-30-2016 - [facility] 11-17-2016 Group ([id number]) Pacer Clinic Pacer Clinic 04-30-2016 - [facility] 11-17-2016 Group ([id number]) Follow Up Appt 3 months Follow Up Appt 3 months 04-30-2016 - [facility] 11-17-2016 Group ([id number]) Pacer Clinic Pacer Clinic 04-30-2016 - [facility] 11-17-2016 Group ([id number]) Carotid duplex Carotid duplex 03-14-2016 - [facility] 03-14-2016 Group ([id number]) Follow Up Appt 3 months Follow Up Appt 3 months 03-14-2016 - [facility] 03-14-2016 Group ([id number]) *PT/INR *PT/INR 03-14-2016 - [facility] 03-14-2016 Group ([id number]) MMM MMM 03-14-2016 - [facility] 03-14-2016 Group ([id number]) Carotid duplex Carotid duplex 03-14-2016 - [facility] 03-14-2016 Group ([id number]) *PT/INR *PT/INR 03-14-2016 - [facility] 03-14-2016 Group ([id number]) Follow Up Appt 3 months Follow Up Appt 3 months 03-14-2016 - [facility] 03-14-2016 Group ([id number]) MMM MMM 03-14-2016 - [facility] 03-14-2016 Group ([id number]) *BMP *BMP 01-30-2016 - [facility] 01-30-2016 Group ([id number]) *CBC without Diff *CBC without Diff 01-30-2016 - [facility] 01-30-2016 Group ([id number]) X-Ray, Chest, PA & Lateral X-Ray, Chest, PA & Lateral 01-30-2016 - [facility] 02-08-2016 Group ([id number]) EKG (In office) EKG (In office) 01-30-2016 - [facility] 01-30-2016 Group ([id number]) Follow Up Appt 6 weeks Follow Up Appt 6 weeks 01-30-2016 - [facility] 01-30-2016 Group ([id number]) *PT/INR *PT/INR 01-30-2016 - [facility] 01-30-2016 Group ([id number]) Left Heart Cath Left Heart Cath 01-30-2016 - [facility] 01-30-2016 Group ([id number]) MMM MMM 01-30-2016 - [facility] 01-30-2016 Group ([id number]) US Abdominal (aneurysm US Abdominal (aneurysm 01-30-2016 - [facility]) screening) 01-30-2016 Group ([id number]) *BMP *BMP 01-30-2016 - [place] [facility] 01-30-2016 Group ([id number]) *CBC without Diff *CBC without Diff 01-30-2016 - [place] [facility] 01-30-2016 Group ([id number]) X-Ray, Chest, PA & Lateral X-Ray, Chest, PA & Lateral 01-30-2016 - [place] [facility] 02-08-2016 Group ([id number]) *PT/INR *PT/INR 01-30-2016 - [facility] 01-30-2016 Group ([id number]) US Abdominal (aneurysm US Abdominal (aneurysm 01-30-2016 - [facility]) screening) 01-30-2016 Group ([id number]) EKG (In office) EKG (In office) 01-30-2016 - [place] [facility] 01-30-2016 Group ([id number]) Follow Up Appt 6 weeks Follow Up Appt 6 weeks 01-30-2016 - [facility] 01-30-2016 Group ([id number]) Left Heart Cath Left Heart Cath 01-30-2016 - [place] [facility] 01-30-2016 Group ([id number]) MMM MMM 01-30-2016 - [facility] 01-30-2016 Group ([id number]) Follow Up Appt 3 months Follow Up Appt 3 months 01-23-2016 - [facility] 11-17-2016 Group ([id number]) Pacer Clinic Pacer Clinic 01-23-2016 - [facility] 11-17-2016 Group ([id number]) Follow Up Appt 3 months Follow Up Appt 3 months 01-23-2016 - [facility] 11-17-2016 Group ([id number]) Pacer Clinic Pacer Clinic 01-23-2016 - [facility] 11-17-2016 Group ([id number]) *Hepatic Function Panel *Hepatic Function Panel 11-05-2015 - [facility] 11-20-2015 Group ([id number]) *Lipid Profile CC PCP *Lipid Profile CC PCP 11-05-2015 - [facility] 11-20-2015 Group ([id number]) *Hepatic Function Panel *Hepatic Function Panel 11-05-2015 - [facility] 11-20-2015 Group ([id number]) *Lipid Profile CC PCP *Lipid Profile CC PCP 11-05-2015 - [facility] 11-20-2015 Group ([id number]) Follow Up Appt 3 months Follow Up Appt 3 months 10-18-2015 - [facility] 02-08-2016 Group ([id number]) Pacer Clinic Pacer Clinic 10-18-2015 - [facility] 02-08-2016 Group ([id number]) Follow Up Appt 3 months Follow Up Appt 3 months 10-18-2015 - [facility] 02-08-2016 Group ([id number]) Pacer Clinic Pacer Clinic 10-18-2015 - [place] [facility] 02-08-2016 Group ([id number]) Follow Up Appt 3 months Follow Up Appt 3 months 07-18-2015 - [facility] 02-08-2016 Group ([id number]) Pacer Clinic Pacer Clinic 07-18-2015 - [facility] 02-08-2016 Group ([id number]) Follow Up Appt 3 months Follow Up Appt 3 months 07-18-2015 - [facility] 02-08-2016 Group ([id number]) Pacer Clinic Pacer Clinic 07-18-2015 - [facility] 02-08-2016 Group ([id number]) [facility] BODS DEVELOPER 07-03-2015 - [facility] 07-03-2015 Group ([id number]) Follow Up Appt 6 months Follow Up Appt 6 months 07-03-2015 - [facility] 07-03-2015 Group ([id number]) BODS DEVELOPER BODS DEVELOPER 07-03-2015 - [facility] 07-03-2015 Group ([id number]) Follow Up Appt 6 months Follow Up Appt 6 months 07-03-2015 - [facility] 07-03-2015 Group ([id number]) *Hepatic Function Panel *Hepatic Function Panel 06-20-2015 - [facility] 06-20-2015 Group ([id number]) *Lipid Profile CC PCP *Lipid Profile CC PCP 06-20-2015 - [facility] 06-20-2015 Group ([id number]) *Hepatic Function Panel *Hepatic Function Panel 06-20-2015 - [facility] 06-20-2015 Group ([id number]) *Lipid Profile CC PCP *Lipid Profile CC PCP 06-20-2015 - [facility] 06-20-2015 Group ([id number]) Follow Up Appt 3 months Follow Up Appt 3 months 04-13-2015 - [facility] 02-08-2016 Group ([id number]) Pacer Clinic Pacer Clinic 04-13-2015 - [facility] 02-08-2016 Group ([id number]) Follow Up Appt 3 months Follow Up Appt 3 months 04-13-2015 - [facility] 02-08-2016 Group ([id number]) Pacer Clinic Pacer Clinic 04-13-2015 - [facility] 02-08-2016 Group ([id number]) US Abdominal (aneurysm US Abdominal (aneurysm 04-11-2015 - [facility]) screening) 04-05-2015 Group ([id number]) US Abdominal (aneurysm US Abdominal (aneurysm 04-11-2015 - [facility]) screening) 04-05-2015 Group ([id number]) External Counterpulsation External Counterpulsation 04-06-2015 - [facility] [address] [facility], Therapy [address] [facility], 04-06-2015 Group ([id number]) [address], [place], [place], [address], [place], [id number] External Counterpulsation External Counterpulsation 04-06-2015 - [facility] [address] [facility], Therapy [address] [facility], 02-08-2016 Group ([id number]) [address] [place], [place], [address], [place], [id number] BODS DEVELOPER BODS DEVELOPER 03-29-2015 - [facility] 03-29-2015 Group ([id number]) Follow Up Appt 3 months Follow Up Appt 3 months 03-29-2015 - [facility] 03-29-2015 Group ([id number]) BODS DEVELOPER BODS DEVELOPER 03-29-2015 - [facility] 03-29-2015 Group ([id number]) Follow Up Appt 3 months Follow Up Appt 3 months 03-29-2015 - [facility] 03-29-2015 Group ([id number]) Follow Up Appt 3 months Follow Up Appt 3 months 01-05-2015 - [facility] 03-05-2015 Group ([id number]) Pacer Clinic Pacer Clinic 01-05-2015 - [facility] 03-05-2015 Group ([id number]) Follow Up Appt 3 months Follow Up Appt 3 months 01-05-2015 - [facility] 03-05-2015 Group ([id number]) Pacer Clinic Pacer Clinic 01-05-2015 - [facility] 03-05-2015 Group ([id number]) Cardiac Rehab Cardiac Rehab 12-27-2014 - [facility] 03-05-2015 Group ([id number]) Follow Up Appt 3 months Follow Up Appt 3 months 12-27-2014 - [facility] 12-27-2014 Group ([id number]) MMM MMM 12-27-2014 - [facility] 12-27-2014 Group ([id number]) Cardiac Rehab Cardiac Rehab 12-27-2014 - [facility] 03-05-2015 Group ([id number]) Follow Up Appt 3 months Follow Up Appt 3 months 12-27-2014 - [facility] 12-27-2014 Group ([id number]) MMM MMM 12-27-2014 - [facility] 12-27-2014 Group ([id number]) Follow Up BP Check Follow Up BP Check 12-11-2014 - [place] [facility] 12-11-2014 Group ([id number]) Left Heart Cath Left Heart Cath 12-11-2014 - [facility] 12-11-2014 Group ([id number]) Follow Up BP Check Follow Up BP Check 12-11-2014 - [facility] [facility] 12-11-2014 Group ([id number]) Left Heart Cath Left Heart Cath 12-11-2014 - [facility] 12-11-2014 Group ([id number]) *BMP *BMP 12-06-2014 - [place] [facility] 12-06-2014 Group ([id number]) Follow Up Appt Other Follow Up Appt Other 12-06-2014 - [facility] 12-06-2014 Group ([id number]) *BMP *BMP 12-06-2014 - [place] [facility] 12-06-2014 Group ([id number]) Follow Up Appt Other Follow Up Appt Other 12-06-2014 - [facility] 12-06-2014 Group ([id number]) *Lipid Profile CC PCP *Lipid Profile CC PCP 11-28-2014 - [facility] 12-21-2014 Group ([id number]) *Lipid Profile CC PCP *Lipid Profile CC PCP 11-28-2014 - [facility] 12-21-2014 Group ([id number]) Follow Up Appt 6 months Follow Up Appt 6 months 11-03-2014 - [facility] 11-03-2014 Group ([id number]) MMM MMM 11-03-2014 - [facility] 11-03-2014 Group ([id number]) Follow Up Appt 6 months Follow Up Appt 6 months 11-03-2014 - [facility] 11-03-2014 Group ([id number]) MMM MMM 11-03-2014 - [facility] 11-03-2014 Group ([id number]) BODS DEVELOPER BODS DEVELOPER 09-27-2014 - [facility] 09-27-2014 Group ([id number]) EKG (In office) EKG (In office) 09-27-2014 - [facility] 09-27-2014 Group ([id number]) Follow Up Appt 3 months Follow Up Appt 3 months 09-27-2014 - [facility] 11-03-2014 Group ([id number]) Follow Up Appt 6 months Follow Up Appt 6 months 09-27-2014 - [facility] 09-27-2014 Group ([id number]) Pacer Clinic Pacer Clinic 09-27-2014 - [facility] 11-03-2014 Group ([id number]) BODS DEVELOPER [facility] 09-27-2014 - [place] 09-27-2014 Group ([id number]) EKG (In office) EKG (In office) 09-27-2014 - [facility] 09-27-2014 Group ([id number]) Follow Up Appt 3 months Follow Up Appt 3 months 09-27-2014 - [facility] 11-03-2014 Group ([id number]) Follow Up Appt 6 months Follow Up Appt 6 months 09-27-2014 - [facility] 09-27-2014 Group ([id number]) Pacer Clinic Pacer Clinic 09-27-2014 - [facility] 11-03-2014 Group ([id number]) *Hepatic Function Panel *Hepatic Function Panel 07-28-2014 - [facility] 08-25-2014 Group ([id number]) *Lipid Profile CC PCP *Lipid Profile CC PCP 07-28-2014 - [facility] 08-25-2014 Group ([id number]) *Hepatic Function Panel *Hepatic Function Panel 07-28-2014 - [facility] 08-25-2014 Group ([id number]) *Lipid Profile CC PCP *Lipid Profile CC PCP 07-28-2014 - [facility] 08-25-2014 Group ([id number]) Follow Up Appt 3 months Follow Up Appt 3 months 06-12-2014 - [facility] 09-15-2014 Group ([id number]) Pacer Clinic Pacer Clinic 06-12-2014 - [facility] 09-15-2014 Group ([id number]) Follow Up Appt 3 months Follow Up Appt 3 months 06-12-2014 - [facility] 09-15-2014 Group ([id number]) Pacer Clinic Pacer Clinic 06-12-2014 - [facility] 09-15-2014 Group ([id number]) Follow Up Appt 3 months Follow Up Appt 3 months 03-14-2014 - [facility] 09-15-2014 Group ([id number]) Follow Up Appt 6 months Follow Up Appt 6 months 03-14-2014 - [facility] 03-14-2014 Group ([id number]) MMM MMM 03-14-2014 - [facility] 03-14-2014 Group ([id number]) Pacer Clinic Pacer Clinic 03-14-2014 - [facility] 09-15-2014 Group ([id number]) Follow Up Appt 3 months Follow Up Appt 3 months 03-14-2014 - [facility] 09-15-2014 Group ([id number]) Follow Up Appt 6 months Follow Up Appt 6 months 03-14-2014 - [facility] 03-14-2014 Group ([id number]) MMM MMM 03-14-2014 - [facility] 03-14-2014 Group ([id number]) Pacer Clinic Pacer Clinic 03-14-2014 - [facility] 09-15-2014 Group ([id number]) *Hepatic Function Panel *Hepatic Function Panel 01-28-2014 - [facility] 02-06-2014 Group ([id number]) *Lipid Profile CC PCP *Lipid Profile CC PCP 01-28-2014 - [facility] 02-06-2014 Group ([id number]) *Hepatic Function Panel *Hepatic Function Panel 01-28-2014 - [facility] 02-06-2014 Group ([id number]) *Lipid Profile CC PCP *Lipid Profile CC PCP 01-28-2014 - [facility] 02-06-2014 Group ([id number]) Follow Up Appt 2 months Follow Up Appt 2 months 12-16-2013 - [facility] 09-15-2014 Group ([id number]) Pacer Clinic Pacer Clinic 12-16-2013 - [facility] 09-15-2014 Group ([id number]) Follow Up Appt 2 months Follow Up Appt 2 months 12-16-2013 - [facility] 09-15-2014 Group ([id number]) Pacer Clinic Pacer Clinic 12-16-2013 - [facility] 09-15-2014 Group ([id number]) Follow Up Appt 3 months Follow Up Appt 3 months 09-15-2013 - [place] [facility] 09-15-2014 Group ([id number]) Pacer Clinic Pacer Clinic 09-15-2013 - [place] [facility] 09-15-2014 Group ([id number]) Follow Up Appt 3 months Follow Up Appt 3 months 09-15-2013 - [place] [facility] 09-15-2014 Group ([id number]) Pacer Clinic Pacer Clinic 09-15-2013 - [place] [facility] 09-15-2014 Group ([id number]) BODS DEVELOPER BODS DEVELOPER 09-06-2013 - [facility] 09-06-2013 Group ([id number]) Follow Up Appt 6 months Follow Up Appt 6 months 09-06-2013 - [facility] 09-06-2013 Group ([id number]) BODS DEVELOPER BODS DEVELOPER 09-06-2013 - [facility] 09-06-2013 Group ([id number]) Follow Up Appt 6 months Follow Up Appt 6 months 09-06-2013 - [facility] 09-06-2013 Group ([id number]) *Hepatic Function Panel *Hepatic Function Panel 07-28-2013 - [facility] 08-08-2013 Group ([id number]) *Lipid Profile CC PCP *Lipid Profile CC PCP 07-28-2013 - [facility] 08-08-2013 Group ([id number]) *Hepatic Function Panel *Hepatic Function Panel 07-28-2013 - [facility] 08-08-2013 Group ([id number]) *Lipid Profile CC PCP *Lipid Profile CC PCP 07-28-2013 - [facility] 08-08-2013 Group ([id number]) Follow Up Appt 3 months Follow Up Appt 3 months 06-08-2013 - [facility] 08-25-2013 Group ([id number]) Pacer Clinic Pacer Clinic 06-08-2013 - [facility] 08-25-2013 Group ([id number]) Follow Up Appt 3 months Follow Up Appt 3 months 06-08-2013 - [facility] 08-25-2013 Group ([id number]) Pacer Clinic Pacer Clinic 06-08-2013 - [facility] 08-25-2013 Group ([id number]) Follow Up Appt 3 months Follow Up Appt 3 months 03-09-2013 - [facility] 05-17-2013 Group ([id number]) Pacer Clinic Pacer Clinic 03-09-2013 - [facility] 05-17-2013 Group ([id number]) Follow Up Appt 3 months Follow Up Appt 3 months 03-09-2013 - [facility] 05-17-2013 Group ([id number]) Pacer Clinic Pacer Clinic 03-09-2013 - [facility] 05-17-2013 Group ([id number]) EKG (In office) EKG (In office) 03-08-2013 - [facility] 05-17-2013 Group ([id number]) Follow Up Appt 6 months Follow Up Appt 6 months 03-08-2013 - [facility] 05-17-2013 Group ([id number]) MMM MMM 03-08-2013 - [facility] 05-17-2013 Group ([id number]) EKG (In office) EKG (In office) 03-08-2013 - [facility] 05-17-2013 Group ([id number]) Follow Up Appt 6 months Follow Up Appt 6 months 03-08-2013 - [facility] 05-17-2013 Group ([id number]) MMM MMM 03-08-2013 - [facility] 05-17-2013 Group ([id number]) *Hepatic Function Panel *Hepatic Function Panel 01-28-2013 - [facility] 02-04-2013 Group ([id number]) *Lipid Profile *Lipid Profile 01-28-2013 - [facility] 02-04-2013 Group ([id number]) *Hepatic Function Panel *Hepatic Function Panel 01-28-2013 - [facility] 02-04-2013 Group ([id number]) *Lipid Profile *Lipid Profile 01-28-2013 - [facility] 02-04-2013 Group ([id number]) Follow Up Appt 3 months Follow Up Appt 3 months 12-08-2012 - [facility] 05-17-2013 Group ([id number]) Pacer [facility] 12-08-2012 - [facility] 05-17-2013 Group ([id number]) Follow Up Appt 3 months Follow Up Appt 3 months 12-08-2012 - [facility] 05-17-2013 Group ([id number]) Pacer [facility] 12-08-2012 - [facility] 05-17-2013 Group ([id number]) Follow Up Appt 6 months Follow Up Appt 6 months 11-25-2012 - [facility] 11-25-2012 Group ([id number]) MMM MMM 11-25-2012 - [facility] 11-25-2012 Group ([id number]) Follow Up Appt 6 months Follow Up Appt 6 months 11-25-2012 - [facility] 11-25-2012 Group ([id number]) MMM MMM 11-25-2012 - [facility] 11-25-2012 Group ([id number]) Follow Up Appt 3 months Follow Up Appt 3 months 09-03-2012 - [facility] 05-17-2013 Group ([id number]) Pacer [facility] 09-03-2012 - [facility] 05-17-2013 Group ([id number]) Follow Up Appt 3 months Follow Up Appt 3 months 09-03-2012 - [facility] 05-17-2013 Group ([id number]) Pacer [facility] 09-03-2012 - [facility] 05-17-2013 Group ([id number]) *BMP *BMP 09-01-2012 - [facility] 03-04-2012 Group ([id number]) *Hepatic Function Panel *Hepatic Function Panel 09-01-2012 - [facility] 05-17-2013 Group ([id number]) *Lipid Profile *Lipid Profile 09-01-2012 - [facility] 05-17-2013 Group ([id number]) *Magnesium *Magnesium 09-01-2012 - [facility] 05-17-2013 Group ([id number]) *BMP *BMP 09-01-2012 - [facility] 03-04-2012 Group ([id number]) *Hepatic Function Panel *Hepatic Function Panel 09-01-2012 - [facility] 05-17-2013 Group ([id number]) *Lipid Profile *Lipid Profile 09-01-2012 - [facility] 05-17-2013 Group ([id number]) *Magnesium *Magnesium 09-01-2012 - [facility] 05-17-2013 Group ([id number]) Follow Up Appt 6 months Follow Up Appt 6 months 03-04-2012 - [facility] 03-04-2012 Group ([id number]) Follow Up Appt 6 months Follow Up Appt 6 months 03-04-2012 - [facility] 03-04-2012 Group ([id number]) *Hepatic Function Panel *Hepatic Function Panel 02-04-2012 - [facility] 02-11-2012 Group ([id number]) *Lipid Profile *Lipid Profile 02-04-2012 - [facility] 02-11-2012 Group ([id number]) *Hepatic Function Panel *Hepatic Function Panel 02-04-2012 - [facility] 02-11-2012 Group ([id number]) *Lipid Profile *Lipid Profile 02-04-2012 - [facility] 02-11-2012 Group ([id number]) Follow Up Appt 4 months Follow Up Appt 4 months 11-24-2011 - [facility] 11-24-2011 Group ([id number]) Follow Up Appt 4 months Follow Up Appt 4 months 11-24-2011 - [facility] 11-24-2011 Group ([id number]) *Hepatic Function Panel *Hepatic Function Panel 10-29-2011 - [facility] 10-27-2011 Group ([id number]) *Lipid Profile *Lipid Profile 10-29-2011 - [facility] 10-27-2011 Group ([id number]) *Hepatic Function Panel *Hepatic Function Panel 10-29-2011 - [facility] 10-27-2011 Group ([id number]) *Lipid Profile *Lipid Profile 10-29-2011 - [facility] 10-27-2011 Group ([id number]) *BMP *BMP 10-16-2011 - [facility] 10-27-2011 Group ([id number]) *BMP *BMP 10-16-2011 - [facility] 10-27-2011 Group ([id number]) EKG (In office) EKG (In office) 08-26-2011 - [facility] 08-26-2011 Group ([id number]) Follow Up Appt 3 months Follow Up Appt 3 months 08-26-2011 - [facility] 08-26-2011 Group ([id number]) EKG (In office) EKG (In office) 08-26-2011 - [facility] 08-26-2011 Group ([id number]) Follow Up Appt 3 months Follow Up Appt 3 months 08-26-2011 - [facility] 08-26-2011 Group ([id number]) EKG (In office) EKG (In office) 06-27-2011 - [facility] 06-27-2011 Group ([id number]) Follow Up Appt 2 months Follow Up Appt 2 months 06-27-2011 - [facility] 06-27-2011 Group ([id number]) EKG (In office) EKG (In office) 06-27-2011 - [facility] 06-27-2011 Group ([id number]) Follow Up Appt 2 months Follow Up Appt 2 months 06-27-2011 - [facility] 06-27-2011 Group ([id number]) Follow Up Appt 4 months Follow Up Appt 4 months 06-10-2011 - [facility] 06-10-2011 Group ([id number]) Follow Up Appt 4 months Follow Up Appt 4 months 06-10-2011 - [facility] 06-10-2011 Group ([id number]) Patient education no information [facility] ([id number]) no information [facility] ([id number]) Immunizations Vaccine Notes Status Date Location Influenza Vaccine, influenza virus (completed) 01-06-2013 - [facility] Split-Non Spec vaccine, unspecified 01-06-2013 ([id number]) formulation Influenza Seasonal - influenza, high dose (completed) 01-14-2019 - [facility] High Dose - Age 65+ seasonal, 01-14-2019 ([id number]) preservative-free Influenza Seasonal - influenza, high dose (completed) 01-26-2018 - [facility] High Dose - Age 65+ seasonal, 01-26-2018 ([id number]) preservative-free Influenza Seasonal - influenza, high dose (completed) 01-19-2017 - [facility] High Dose - Age 65+ seasonal, 01-19-2017 ([id number]) preservative-free Influenza Seasonal - influenza, high dose (completed) 01-18-2016 - [facility] High Dose - Age 65+ seasonal, 01-18-2016 ([id number]) preservative-free Influenza Seasonal - influenza, high dose (completed) 01-24-2015 - [facility] High Dose - Age 65+ seasonal, 01-24-2015 ([id number]) preservative-free Novel Influenza H1N1, novel (completed) 01-31-2009 - [facility] preservative free [id number], 01-31-2009 ([id number]) preservative-free, injectable Pneumococcal-13 Vac pneumococcal (completed) 06-07-2014 - [facility] Conjugate conjugate vaccine, 13 06-07-2014 ([id number] ) valent Tdap (Age 7+) tetanus toxoid, (completed) 09-16-2007 - [facility] linic reduced diphtheria 09-16-2007 ([id number]) toxoid, and acellular pertussis vaccine, adsorbed Payers Payer Name Policy Number Location MEDICARE [id number] [facility] (44 195) MEDICARE PART B [id number] [facility] Found [facility]ion ([place]) ([id number]) M[employer] [facility] [id number] [facility] (44 195) The following information is from the original human readable contentNo Payer Records Found Social History Type Social History Date Location Description History of tobacco use Current smoker 08-12-2007 [facility] ([id number]) History SDOH Social 2 12-17-2018 - [facility] [facility] 09-09-2019 ([id number]) History of tobacco use Cigar Smoker 08-12-2007 [facility] ([id number]) Tobacco use and exposure Never used 10-27-2019 - [facility] 10-27-2019 ([id number]) Alcohol intake Current non-drinker of 10-27-2019 [facility] alcohol (finding) 10-27-2019 ([id number]) History SDOH Alcohol 1 09-09-2019 - [facility]inic Frequency 09-09-2019 ([id number]) History SDOH Social 98 09-09-2019 - [facility] [employer] Phone 09-09-2019 ([id number]) Tobacco smoking status Former smoker 10-27-2019 - [facility] NHIS 10-27-2019 ([id number]) History SDOH Social 3 12-17-2018 - [facility] 12-17-2018 ([id number]) History SDOH Physical 0 09-09-2019 - [facility] Activity DPW 09-09-2019 ([id number]) History SDOH Stress 5 09-09-2019 - [facility] 09-09-2019 ([id number]) History SDOH Education 12 09-09-2019 - [facility] 09-09-2019 ([id number]) Sex Assigned At Not on file [facility] ([id number]) Exposure to SARS-CoV-2 Not sure [facility] (event) ([id number]) The following information is from the original [...] Each five times 07-19-2019 daily. Use with [employer] 09-16-2013 Glucometer as directed Goals Patient Goal [...] - 11/21/2019 3:30 PM EDT TELEPHONIC APPOINTMENT [place] law requires the collaborative practice agreement to [...] pharmacotherapy management appointment for diabetes. At 09/15 DEPUTY CORONER?appt,?insulin NPH dose decreased pt was consulted to pharmacy due to increased hypoglycemia.?At last DEPUTY CORONER visit gabapentin was initiated and empiric treatment for UTI was started with nitrofurantoin mo nohydrate. At PharmD visit on , insulin lispro dose was decreased and patient was recommended to pursue basal/bolus insulin pens through [employer] patient assistance. At last PCP appt, no [...] Coronary atherosclerosis of unspecified type of vessel, [place] or graft s/p ID in 1985 ? Diverticulosis of colon (without [...] disease, with long-term current use of insulin ([facility]) 06/15/2017 ? Unspecified essential hypertension ALLERGIES Allergen [...] G47.33 327.23 - fax compliance download to [phone] 1 Device 0 ? flash glucose sensor [...] once daily. 0 ? blood sugar diagnostic ([employer] BLOOD GLUCOSE SYSTEM) test strip Use as [...] (ONE TOUCH ULTRASOFT LANCETS) lancets Use with [employer] Glucometer as directed 100 Each 3 ? [...] disease, with long-term current use of insulin ([facility]) - ICD9: 250.40, 585.3, V58.67, ICD10: E11.22, [...] approval of new basal/bolus insulin pens from [facility].?Renal function and LFTs appropriate for continued use. [place] law requires the collaborative practice agreement to [...] for switching to Basaglar and Humalog through [employer] patient assistance, will replace current insulins. ? ACEi/ARB for renal protection:?yes, Scr and K+ ok to continue ? HbA1c: 01/14/2020 Patient is not scheduled to see PCP. Patient to follow up with PharmD, pt to call me by end of week with update on if approved by PAP. Patient verbalized understanding of instructions. Denita Thorpe, LisaD, BCACP Primary Care Clinical Pharmacist [facility] documented in this encounter Assessments Diagnosis Type [...] BE BASED ON THE PRIMARY CLINICAL RECORDS. [employer] provides no warranty or guarantee of the accuracy or completeness of information in this document. UNRECOGNIZED CONTENT PROVIDED BELOW FOR UNRECOGNIZED SECTION Source Comments In the event this information is protected by the Federal Confidentiality of Alcohol and Drug Abuse Patient Records regulations: The Federal rules restrict any use of the information to criminally investigate or prosecute any alcohol or drug abuse patient.[facility] the event this information is protected by the Federal Confidentiality of Alcohol and Drug Abuse Patient Records regulations: The Federal rules restrict any use of the information to criminally investigate or prosecute any alcohol or drug abuse patient.[facility] Center[facility] the event this information is protected by the Federal Confidentiality of Alcohol and Drug Abuse Patient Records regulations: The Federal rules restrict any use of the information to criminally investigate or prosecute any alcohol or drug abuse patient.[facility] Center[facility] the event this information is protected by the Federal Confidentiality of Alcohol and Drug Abuse Patient Records regulations: The Federal rules restrict any use of the information to criminally investigate or prosecute any alcohol or drug abuse patient.[facility] Center[facility] the event this information is protected by the Federal Confidentiality of Alcohol and Drug Abuse Patient Records regulations: The Federal rules restrict any use of the information to criminally investigate or prosecute any alcohol or drug abuse patient.[facility] CenterIn the event this information is protected by the Federal Confidentiality of Alcohol and Drug Abuse Patient Records regulations: The Federal rules restrict any use of the information to criminally investigate or prosecute any alcohol or drug abuse patient.[facility] CenterIn the event this information is protected by the Federal Confidentiality of Alcohol and Drug Abuse Patient Records regulations: The Federal rules restrict any use of the information to criminally investigate or prosecute any alcohol or drug abuse patient.[facility] CenterIn the event this information is protected by the Federal Confidentiality of Alcohol and Drug Abuse Patient Records regulations: The Federal rules restrict any use of the information to criminally investigate or prosecute any alcohol or drug abuse patient.[facility] CenterIn the event this information is protected by the Federal Confidentiality of Alcohol and Drug Abuse Patient Records regulations: The Federal rules restrict any use of the information to criminally investigate or prosecute any alcohol or drug abuse patient.[facility] Center[facility] the event this information is protected by the Federal Confidentiality of Alcohol and Drug Abuse Patient Records regulations: The Federal rules restrict any use of the information to criminally investigate or prosecute any alcohol or drug abuse patient.[facility] CenterIn the event this information is protected by the Federal Confidentiality of Alcohol and Drug Abuse Patient Records regulations: The Federal rules restrict any use of the information to criminally investigate or prosecute any alcohol or drug abuse patient.[facility] CenterIn the event this information is protected by the Federal Confidentiality of Alcohol and Drug Abuse Patient Records regulations: The Federal rules restrict any use of the information to criminally investigate or prosecute any alcohol or drug abuse patient.[facility] CenterIn the event this information is protected by the Federal Confidentiality of Alcohol and Drug Abuse Patient Records regulations: The Federal rules restrict any use of the information to criminally investigate or prosecute any alcohol or drug abuse patient.[facility] CenterIn the event this information is protected by the Federal Confidentiality of Alcohol and Drug Abuse Patient Records regulations: The Federal rules restrict any use of the information to criminally investigate or prosecute any alcohol or drug abuse patient.[facility] CenterIn the event this information is protected by the Federal Confidentiality of Alcohol and Drug Abuse Patient Records regulations: The Federal rules restrict any use of the information to criminally investigate or prosecute any alcohol or drug abuse patient.[facility] UNRECOGNIZED CONTENT PROVIDED BELOW FOR UNRECOGNIZED SECTION No Status Records FoundNo Status Records Found UNRECOGNIZED CONTENT PROVIDED BELOW FOR UNRECOGNIZED SECTION INFORMATION SOURCE DATE CREATED AUTHOR AUTHOR'S ORGANIZATIO N 09/22/2017 [facility] ([place]) DATE CREATED AUTHOR AUTHOR'S ORGANIZATIO N 01/07/2020 [facility] UNRECOGNIZED CONTENT PROVIDED BELOW FOR UNRECOGNIZED SECTION [...] 11/28/2019 4:36 PM EDTCalled and spoke with [facility], they confirm that Basaglar is ready for delivery. Will arrive tomorrow. Called and spoke with pt's , Ila to ensure someone over the age of 18 is home to sign for package. She verbalized understanding. Denita Thorpe PharmD, BCACP Primary Care Clinical Pharmacist [facility] Telephone Encounter - Kemi (Pharmacist)Denita - 11/23/2019 1:25 PM EDTOrders for both Humalog and Basaglar (to replace Humulin) were sent to [facility] on 10/23. Attempted to call [employer] to clarify, unable to reach automobile sales representative. Was able to leave voicemail [...] Thorpe PharmD, BCACP Primary Care Clinical Pharmacist [facility] Telephone Encounter - Ronen Avery LPN - 11/23/2019 10:35 AM EDTPt calls to state he would like to let Denita know that he received his Humalog quick pens but has notreceived his Humulin quick pens yet. Ronen Avery LPN documented in this encounterTelephone Encounter - Emilie (Pharmacist), Gabriela - 12/06/2019 5:22 PM EDT [facility] Ambulatory Pharmacy Anticoagulation Clinic Referring provider: No ref. provider found Lovely Devi is a 74 year old year old male patient being evaluated today for anticoagulation Telemanagement visit. Patient is currently on the following anticoagulant Warfarin Labs PT INR (no units) Date Value 11/26/2018 Test sent to [facility]. 10/16/2017 1.8 01/16/2017 Test sent to [facility]. INR (POCT) (no units) Date Value 02/21/2019 [...] Pharmacy Anticoagulation Clinic Pharmacy Anticoagulation Clinic Pager: [phone] Description Patient has 3 mg tablets of warfarin. Patient takes in the morning. . Telephone Encounter - Shawn (Fiberglass Luggage Molder), Cristina - 12/06/2019 5:13 PM EDT Patient called and left message that stated he received a message re: his INR result and dosing but he couldn't understand what dose to take of his warfarin. Patient can be reached at [phone]. Cristina Escobar CPhT (Property Handler) Pharmacy Anticoagulation Clinic Telephone Encounter - Andre (Pharmacist)Lee - 12/06/2019 3:29 PM EDT [facility] Ambulatory [facility] Antico[facility] Lovely Devi is a 74 year old year old male patient being evaluated today for anticoagulation Telemanagement visit. Patient is currently on the following anticoagulant Warfarin Labs PT INR (no units) Date Value 11/26/2018 Test sent to [facility]. 10/16/2017 1.8 01/16/2017 Test sent to [facility]. INR (POCT) (no units) Date Value 02/21/2019 [...] information and advised to call PAC at [phone] if any questions or changes to report. Would like to try one more time to reach patient. INR 2 weeks ago was low and leftVM for patient so not sure if he got message. Lee Moss, Pharmacist Clinical Pharmacist, Pharmacy Anticoagulation Clinic Pharmacy Anticoagulation Clinic Pager: [phone] Description Patient has 3 mg tablets of [...] Tasha Chan RN - 12/08/2019 1:[address] [facility]- reports this was a [...] Thorpe, PharmD, BCACP Primary Care Clinical Pharmacist [facility] Telephone Encounter - Cindi Pichardo RN - [...] Blossom (Pharmacist)Joleen - 12/21/2019 9:15 AM EDT [facility] Ambulatory [facility] Anticoagulation [facility] Referring provider: No ref. provider found Lovely Devi is a 74 year old year old male patient being evaluated today for anticoagulation Telemanagement visit. Patient is currently on the following anticoagulant Warfarin Labs PT INR (no units) Date Value 11/26/2018 Test sent to [facility]. 10/16/2017 1.8 01/16/2017 Test sent to [facility]. INR (POCT) (no units) Date Value 02/21/2019 [...] of liver or green tea, Ensure, Boost, [place] Instant Breakfast, Mulit-Vitamins, and V-8. Plan: ? Advised patient to continue with a higher weekly warfarin dose at this time. ? Next home INR check scheduled on 01/04/2020 ? Patient verbalizes understanding of the plan. JOLEEN CERRATO PHARMACIST Clinical Pharmacist, Pharmacy Anticoagulation Clinic Pharmacy Anticoagulation Clinic Pager: [phone] Description Patient has 3 mg tablets of [...] 01/10. Please advise. Electronically signed by Linwood GonzálesDepartment [facility]) JAZZY Carpenter at 12/27/2019 5:53 PM EDT [...] Thorpe, PharmD, BCACP Primary Care Clinical Pharmacist [facility] documented in this encounter UNRECOGNIZED CONTENT PROVIDED BELOW FOR UNRECOGNIZED SECTION Reason for Visit Reason Onset Date Comments Medication Update 11/23/2019 Reason Comments Allied Health Visit DM Reason Onset Date Comments Anticoagulation Telephone Fu 12/06/2019 Home INR re sult Reason Onset Date Comments Refill Request 12/07/2019 Reason Onset Date Comments [facility] OT POC 12/08/2019 Reason Onset Date Comments insulin did not arrive 11/30/2019 Reason Comments Outside Lab Results CBC, BMP Reason Onset Date Comments Anticoagulation Telephone Fu 12/20/2019 Home INR re sult Reason Onset Date Comments Patient Question 12/27/2019 Reason Onset Date Comments Refill Request 01/06/2020
--- OUTSIDE RECORDS SUMMARY | 2020-01-15 10:01 | XMS RPT_ITS | CCD ---
:1945 External Reference #:[id number] Author Organization [facility] Care Team Providers Name Role Phone [...] Onset ceftriaxone rash Severe, Severe 06-19-2016 - [facility] ([id number]) cefTRIAXone Other: See Comments 06-20-2014 - Ashlee richardson [facility] ([id number]) cow milk diarrhea (lactose Moderate, 06-19-2016 - [facility] art Translations: [ intolerant) Moderate Group (43007 ) MILK] Morphine Hallucinations Severe, Critical 02-28-2005 - [facility] ([id number]) Medications Medication Name Sig Date Prescriber Location Amiodarone amiodarone (PACERONE) 11-26-2017 Morgan Valdez [facility] 200 mg tablet Take 1 (39035) tablet by mouth once daily. 0 11/26/2017 Active Comment: Take 1 tablet by mouth once daily. amLODIPine AMLODIPINE BESYLATE 5 MG TABS One 09-06-2013 [facility] (98258) tablet by mouth daily AMLODIPINE BESYLATE [id number] Melany Khanna PA-C AMLODIPINE BESYLATE 10 MG 09-06-2013 Melany Restrepo RN [facility] TABS One tablet by mouth (55109) daily AMLODIPINE BESYLATE [id number] Melany Khanna PA-C aspirin Aspirin 81 mg ORAL Tab Take 06-10-2011 Morgan Veeselina [facility] 1 tablet by mouth once (4469 1) daily. Take with food. 30 tablet 11 07/07/2011 Active ASPIRIN 81 MG TABS One tablet by mouth twice 06-10-2011 [facility] (83179) daily ASPIRIN [id number] Rahul Anaya MD ASPIRIN 81 MG TABS One tablet by mouth daily 06-10-2011 [facility] (48381) ASPIRIN [id number] Kath Esquivel MD ASPIRIN 81 MG TABS One tablet by mouth twice 06-10-2011 [facility] (64565) daily ASPIRIN [id number] Rahul Anaya MD ASPIRIN EC 81 MG TBEC One tablet by mouth 06-10-2011 [facility] (43782) daily ASPIRIN [id number] Jessica Odom RN ASPIRIN 325 MG TABS One tablet by mouth 07-16-2010 [facility] (88043) daily ASPIRIN [id number] Tracee Beard Comment: Take 1 tablet by mouth once daily. Take with food. Back Brace misc [facility]-2018 Morgan Rosado [facility] Indications: Class 2 (63195) severe obesity due to excess calories with serious comorbidity and body mass index (BMI) of 38.0 to 38.9 in adult ([facility]) , Facet arthritis of lumbar region 1 Device once daily as needed. size large 1 Each 0 01/31/2018 Active Back Brace [facility] Indications: Class 01-31-2018 Morgan Valdez [facility] (71801) 2 severe obesity due to excess calories with serious comorbidity and body mass index (BMI) of 38.0 to 38.9 in adult ([facility]) , Facet arthritis of lumbar region 1 Device once daily as needed. size large 1 Each 0 01/31/2018 Active Back Brace misc Indications: Class 01-31-2018 Morgan A [facility] (33843) 2 severe obesity due to excess calories with serious comorbidity and body mass index (BMI) of 38.0 to 38.9 in adult (HCC) , Facet arthritis of lumbar region 1 Device once daily as needed. size large 1 Each 0 01/31/2018 Active Back Brace misc Indications: Class 01-31-2018 [facility] (18111) 2 severe obesity due to excess calories with serious comorbidity and body mass index (BMI) of 38.0 to 38.9 in adult (HCC) , Facet arthritis of lumbar region 1 Device once daily as needed. size large 1 Each 0 01/31/2018 Active Back Brace misc Indications: Class 01-31-2018 [facility] (34676) 2 severe obesity due to excess calories with serious comorbidity and body mass index (BMI) of 38.0 to 38.9 in adult (HCC) , Facet arthritis of lumbar region 1 Device once daily as needed. size large 1 Each 0 01/31/2018 Active Back Brace misc Indications: Class 01-31-2018 [facility] (88595) 2 severe obesity due to excess calories with serious comorbidity and body mass index (BMI) of 38.0 to 38.9 in adult (HCC) , Facet arthritis of lumbar region 1 Device once daily as needed. size large 1 Each 0 01/31/2018 Active Back Brace misc Indications: Class 01-31-2018 [facility] (06570) 2 severe obesity due to excess calories with serious comorbidity and body mass index (BMI) of 38.0 to 38.9 in adult (HCC) , Facet arthritis of lumbar region 1 Device once daily as needed. size large 1 Each 0 01/31/2018 Active Back Brace misc Indications: Class 01-31-2018 [facility] (93338) 2 severe obesity due to excess calories with serious comorbidity and body mass index (BMI) of 38.0 to 38.9 in adult (HCC) , Facet arthritis of lumbar region 1 Device once daily as needed. size large 1 Each 0 01/31/2018 Active Back Brace misc Indications: Class 01-31-2018 Morgan A Cebul [facility] (13233) 2 severe obesity due to excess calories with serious comorbidity and body mass index (BMI) of 38.0 to 38.9 in adult (HCC) , Facet arthritis of lumbar region 1 Device once daily as needed. size large 1 Each 0 01/31/2018 Active Back Brace misc Indications: Class 01-31-2018 Morgan A bul [facility] (58653) 2 severe obesity due to excess calories with serious comorbidity and body mass index (BMI) of 38.0 to 38.9 in adult (HCC) , Facet arthritis of lumbar region 1 Device once daily as needed. size large 1 Each 0 01/31/2018 Active Back Brace misc Indications: Class 01-31-2018 Morgan A [facility] (46938) 2 severe obesity due to excess calories with serious comorbidity and body mass index (BMI) of 38.0 to 38.9 in adult (HCC) , Facet arthritis of lumbar region 1 Device once daily as needed. size large 1 Each 0 01/31/2018 Active Back Brace misc Indications: Class 01-31-2018 Morgan A [facility] (98860) 2 severe obesity due to excess calories with serious comorbidity and body mass index (BMI) of 38.0 to 38.9 in adult (HCC) , Facet arthritis of lumbar region 1 Device once daily as needed. size large 1 Each 0 01/31/2018 Active Back Brace misc Indications: Class 01-31-2018 Morgan A [facility] ([id number]) 2 severe obesity due to excess calories with serious comorbidity and body mass index (BMI) of 38.0 to 38.9 in adult (HCC) , Facet arthritis of lumbar region 1 Device once daily as needed. size large 1 Each 0 01/31/2018 Active Back Brace misc Indications: Class 01-31-2018 Morgan A [facility] (41261) 2 severe obesity due to excess calories with serious comorbidity and body mass index (BMI) of 38.0 to 38.9 in adult (HCC) , Facet arthritis of lumbar region 1 Device once daily as needed. size large 1 Each 0 01/31/2018 Active Back Brace misc Indications: Class 01-31-2018 Morgan A [facility] (16052) 2 severe obesity due to excess calories with serious comorbidity and body mass index (BMI) of 38.0 to 38.9 in adult (HCC) , Facet arthritis of lumbar region 1 Device once daily as needed. size large 1 Each 0 01/31/2018 Active Back Brace misc Indications: Class 01-31-2018 Morgan Mooney [facility] (97701) 2 severe obesity due to excess calories with serious comorbidity and body mass index (BMI) of 38.0 to 38.9 in adult (HCC) , Facet arthritis of lumbar region 1 Device once daily as needed. size large 1 Each 0 01/31/2018 Active Back Brace misc Indications: Class 01-31-2018 Morgan Mooney [facility] (80910) 2 severe obesity due to excess calories with serious comorbidity and body mass index (BMI) of 38.0 to 38.9 in adult (HCC) , Facet arthritis of lumbar region 1 Device once daily as needed. size large 1 Each 0 01/31/2018 Active Comment: 1 Device once daily as neede d. size large BIPAP BIPAP Initiate BiPAP @ 24- Nik E Mo [facility] cm of water with (16947) humidification. Mask (per patient preference), chin strap, filters, tubing / heated tubing, heated humidity and lifetime supplies. Dx. JESSICA G47.33 327.23 - fax compliance download to [phone] 1 Device 0 09/15/2018 Active BIPAP Initiate BiPAP @ 24/18 cm of 09-15-2018 Nik E Angela [facility] (47861) water with humidification. Mask (per patient preference), chin strap, filters, tubing / heated tubing, heated humidity and lifetime supplies. Dx. JESSICA G47.33 327.23 - fax compliance download to [phone] 1 Device 0 09/15/2018 Active BIPAP Initiate BiPAP @ 24/18 cm of 09-15-2018 Nik E Angela [facility] (29644) water with humidification. Mask (per patient preference), chin strap, filters, tubing / heated tubing, heated humidity and lifetime supplies. Dx. JESSICA G47.33 327.23 - fax compliance download to [phone] 1 Device 0 09/15/2018 Active BIPAP Initiate BiPAP @ 24/18 cm of 09-15-2018 [facility] (01417) water with humidification. Mask (per patient preference), chin strap, filters, tubing / heated tubing, heated humidity and lifetime supplies. Dx. JESSICA G47.33 327.23 - fax compliance download to [phone] 1 Device 0 09/15/2018 Active BIPAP Initiate BiPAP @ 24/18 cm of 09-15-2018 [facility] (24449) water with humidification. Mask (per patient preference), chin strap, filters, tubing / heated tubing, heated humidity and lifetime supplies. Dx. JESSICA G47.33 327.23 - fax compliance download to [phone] 1 Device 0 09/15/2018 Active BIPAP Initiate BiPAP @ 24/18 cm of 09-15-2018 [facility] (49737) water with humidification. Mask (per patient preference), chin strap, filters, tubing / heated tubing, heated humidity and lifetime supplies. Dx. JESSICA G47.33 327.23 - fax compliance download to [phone] 1 Device 0 09/15/2018 Active BIPAP Initiate BiPAP @ 24/18 cm of 09-15-2018 [facility] (47673) water with humidification. Mask (per patient preference), chin strap, filters, tubing / heated tubing, heated humidity and lifetime supplies. Dx. JESSICA G47.33 327.23 - fax compliance download to [phone] 1 Device 0 09/15/2018 Active BIPAP Initiate BiPAP @ 24/18 cm of 09-15-2018 [facility] (64303) water with humidification. Mask (per patient preference), chin strap, filters, tubing / heated tubing, heated humidity and lifetime supplies. Dx. JESSICA G47.33 327.23 - fax compliance download to [phone] 1 Device 0 09/15/2018 Active BIPAP Initiate BiPAP @ 24/18 cm of 09-15-2018 [facility] (78933) water with humidification. Mask (per patient preference), chin strap, filters, tubing / heated tubing, heated humidity and lifetime supplies. Dx. JESSICA G47.33 327.23 - fax compliance download to [phone] 1 Device 0 09/15/2018 Active BIPAP Initiate BiPAP @ 24/18 cm of 09-15-2018 [facility] (24347) water with humidification. Mask (per patient preference), chin strap, filters, tubing / heated tubing, heated humidity and lifetime supplies. Dx. JESSICA G47.33 327.23 - fax compliance download to [phone] 1 Device 0 09/15/2018 Active BIPAP Initiate BiPAP @ 24/18 cm of 09-15-2018 Nik E [facility] (89947) water with humidification. Mask (per patient preference), chin strap, filters, tubing / heated tubing, heated humidity and lifetime supplies. Dx. JESSICA G47.33 327.23 - fax compliance download to [phone] 1 Device 0 09/15/2018 Active BIPAP Initiate BiPAP @ 24/18 cm of 09-15-2018 [facility] (88092) water with humidification. Mask (per patient preference), chin strap, filters, tubing / heated tubing, heated humidity and lifetime supplies. Dx. JESSICA G47.33 327.23 - fax compliance download to [phone] 1 Device 0 09/15/2018 Active BIPAP Initiate BiPAP @ 24/18 cm of 09-15-2018 [facility] (26608) water with humidification. Mask (per patient preference), chin strap, filters, tubing / heated tubing, heated humidity and lifetime supplies. Dx. JESSICA G47.33 327.23 - fax compliance download to [phone] 1 Device 0 09/15/2018 Active BIPAP Initiate BiPAP @ 24/18 cm of 09-15-2018 [facility] (58193) water with humidification. Mask (per patient preference), chin strap, filters, tubing / heated tubing, heated humidity and lifetime supplies. Dx. JESSICA G47.33 327.23 - fax compliance download to [phone] 1 Device 0 09/15/2018 Active BIPAP Initiate BiPAP @ 24/18 cm of 09-15-2018 Nik [facility] (94216) water with humidification. Mask (per patient preference), chin strap, filters, tubing / heated tubing, heated humidity and lifetime supplies. Dx. JESSICA G47.33 327.23 - fax compliance download to [phone] 1 Device 0 09/15/2018 Active BIPAP Initiate BiPAP @ 24/18 cm of 09-15-2018 Nik Quincy [facility] (28064) water with humidification. Mask (per patient preference), chin strap, filters, tubing / heated tubing, heated humidity and lifetime supplies. Dx. JESSICA G47.33 327.23 - fax compliance download to [phone] 1 Device 0 09/15/2018 Active BIPAP Initiate BiPAP @ 24/18 cm of 09-15-2018 Nik E [facility] (05097) water with humidification. Mask (per patient preference), chin strap, filters, tubing / heated tubing, heated humidity and lifetime supplies. Dx. JESSICA G47.33 327.23 - fax compliance download to [phone] 1 Device 0 09/15/2018 Active Comment: Initiate BiPAP @ 24/18 cm of water with humidification. Mask (per patient preference), chin strap, alida ters, tubing / heated tubing, heated humidity and lifetime supplies. Dx. O SA G47.33 327.23 - fax compliance download to [phone] carvedilol carvedilol (COREG) 3.125 09-16-2019 Deniz Payne [facility] mg tablet Take 2 tablets (44 691) by mouth twice daily. for one week starting on 06/20/16 then will be taking 6.25 x 2 daily . 0 09/16/2019 Active COREG 6.25 MG TABS One 06-19-2016 MD [facility] tablet by mouth twice (98608) daily CARVEDILOL [id number] Johan Perry MD COREG 3.125 MG TABS One 12-06-2014 - 02-07-2015 Melissa Marks RN [facility] tablet by mouth twice (66326) daily CARVEDILOL [id number] Johan Perry MD Comment: Take 2 tablets by mouth twic e daily. for one week starting on 06/20/16 then will be taking 6.25 x 2 ajay y . cephalexin CEPHALEXIN 500 MG 07-16-2010 - [facility] TABS One tablet by 06-10-2011 Group (44 691) mouth three times daily CEPHALEXIN [id number] Tracee Beard Cholecalciferol Cholecalciferol, 09-16-2019 [facility] Vitamin D3, 50 mcg (67326) (2,000 unit) cap Indications: Vitamin D deficiency Take 1 capsule by mouth once daily. 0 09/16/2019 Active Comment: Take 1 capsule by mouth once daily. clopidogrel clopidogrel (PLAVIX) 75 mg 08-29-2019 Morgan Valdez [facility] tablet Indications: (36715) Subsequent non-ST elevation (NSTEMI) myocardial infarction within 4 weeks of initial infarction (HCC) Take 1 tablet by mouth once daily. 90 tablet 3 08/29/2019 Active PLAVIX 75 MG TABS One tablet by mouth daily 03-04-2012 [facility] (13056) CLOPIDOGREL BISULFATE [id number] Rahul Anaya MD Comment: Take 1 tablet by mouth once daily. colestipol COLESTID 1 GM TABS One 11-24-2011 - 01-01-2017 [facility] tablet by mouth twice (70226 ) daily COLESTIPOL HCL [id number] Melany Khanna PA-C COLESTID 1 GM TABS Two 11-24-2011 [facility] tablets by mouth twice Group (44 691) daily COLESTIPOL HCL [id number] Johan Perry MD COLESTID 1 GM TABS One 11-24-2011 [facility] tablet by mouth twice Group (446 91) daily COLESTIPOL HCL [id number] [place] Kevan Perry MD COLESTID 1 GM TABS Two 11-24-2011 [facility] tablets by mouth twice Group (44 691) daily COLESTIPOL HCL [id number] Johan Perry MD COLESTID 1 GM TABS Two 11-24-2011 Vicki Kirkpatrick [facility] tablets by mouth twice Group (44 951) daily COLESTIPOL HCL [id number] Johan Perry MD COLESTID 1 GM TABS One 11-24-2011 Riana Francis RN [facility] tablet by mouth twice Group (446 91) daily COLESTIPOL HCL [id number] Johan Perry MD COLESTID 1 GM TABS One 11-24-2011 - [facility] by mouth twice 06-19-2016 Group (446 91) daily COLESTIPOL HCL [id number] Johan Perry MD COLESTID 1 GM TABS One 11-24-2011 Melissa Marks RN [facility] by mouth twice Group (446 91) daily COLESTIPOL HCL [id number] Johan Perry MD COLESTID 1 GM TABS One 11-24-2011 Riana Francis RN [facility] by mouth twice Group (446 91) daily COLESTIPOL HCL 41641151814 Johan Perry MD COLESTID 1 GM TABS One 11-24-2011 - [facility] by mouth twice 06-19-2016 Group (446 91) daily COLESTIPOL HCL [id number] Johan Perry MD COLESTID 1 GM TABS Two 11-24-2011 Melissa Marks RN [facility] tablets by mouth twice Group (44 341) daily COLESTIPOL HCL [id number] Johan Perry MD COLESTID 1 GM TABS Two 11-24-2011 Vicki Kirkpatrick RN [facility] tablets by mouth twice Group (44 311) daily COLESTIPOL HCL [id number] Johan Perry MD COLESTID 1 GM TABS One 11-24-2011 Riana Francis RN [facility] by mouth twice Group (440 91) daily COLESTIPOL HCL [id number] Johan Kevan Perry MD COLESTID 1 GM TABS One 11-24-2011 Melissa Jesica Selina RN [facility] tablet by mouth twice Group (446 91) daily COLESTIPOL HCL [id number] Johan Kevan Perry MD COLESTID 1 GM TABS One 11-24-2011 - [facility] tablet by mouth twice 06-19-2016 Group (446 91) daily COLESTIPOL HCL [id number] Johan Kevan Perry MD COLESTID 1 GM TABS Two 11-24-2011 Melissa Marks RN [facility] tablets by mouth twice Group (44 691) daily COLESTIPOL HCL [id number] [place] Kevan Perry MD COLESTID 1 GM TABS Two 11-24-2011 Vicki Kirkpatrick RN [facility] tablets by mouth twice Group (44 691) daily COLESTIPOL HCL [id number] Johan Perry MD COLESTID 1 GM TABS Two 11-24-2011 Melissa Marks RN [facility] tablets by mouth twice Group (44 691) daily COLESTIPOL HCL [id number] Johan Perry MD COLESTID 1 GM TABS Two 11-24-2011 Vicki Kirkpatrick RN [facility] tablets by mouth twice Group (44 691) daily COLESTIPOL HCL [id number] [place] Kevan Perry MD COLESTID 1 GM TABS One 11-24-2011 - [facility] by mouth twice 06-19-2016 Group (446 91) daily COLESTIPOL HCL [id number] Johan Kevan Perry MD COLESTID 1 GM TABS One 11-24-2011 Melissa Marks RN [facility] tablet by mouth twice Group (446 91) daily COLESTIPOL HCL [id number] [place] Kevan Perry MD COLESTID 1 GM TABS One 11-24-2011 Riana Francis RN [facility] tablet by mouth twice Group (446 91) daily COLESTIPOL HCL [id number] [place] Kevan Perry MD COLESTID 1 GM TABS Two 11-24-2011 Vicki Kirkpatrick RN [facility] tablets by mouth twice Group (44 901) daily COLESTIPOL HCL 54428709230 Johan S MD [place] COLESTID 1 GM TABS One 11-24-2011 Melissa Marks RN [facility] by mouth twice Group (441 91) daily COLESTIPOL HCL [id number] Johan Kevan Perry MD COLESTID 1 GM TABS Two 11-24-2011 Melissa Marks RN [facility] tablets by mouth twice Group (44 731) daily COLESTIPOL HCL [id number] Johan Perry MD COLESTID 1 GM TABS One 11-24-2011 Riana Francis RN [facility] tablet by mouth twice Group (448 91) daily COLESTIPOL HCL [id number] MD ENRICO RogersSTID 1 GM TABS One 11-24-2011 - [facility] by mouth twice 06-19-2016 Group (446 91) daily COLESTIPOL HCL [id number] Johan Perry MD COLESTID 1 GM TABS One 11-24-2011 Riana Francis RN [facility] by mouth twice Group (446 91) daily COLESTIPOL HCL 22213727306 [place] S MD [place] COLESTID 1 GM TABS Two 11-24-2011 Vicki Kirkpatrick RN [facility] tablets by mouth twice Group (44 111) daily COLESTIPOL HCL 80641151459 [place] Kevan Perry MD COLESTID 1 GM TABS One 11-24-2011 Melissa Marks RN [facility] by mouth twice Group (442 91) daily COLESTIPOL HCL [id number] Johan Kevan Perry MD COLESTID 1 GM TABS One 11-24-2011 - [facility] by mouth twice 06-19-2016 Group (446 91) daily COLESTIPOL HCL [id number] [place] Kevan Perry MD COLESTID 1 GM TABS Two 11-24-2011 Melissa Marks RN [facility] tablets by mouth twice Group (44 691) daily COLESTIPOL HCL [id number] Johan Kevan Perry MD COLESTID 1 GM TABS One 11-24-2011 Melissa Jesica Selina RN [facility] by mouth twice Group (446 91) daily COLESTIPOL HCL [id number] [place] Kevan Perry MD COLESTID 1 GM TABS Two 11-24-2011 Vicki Kirkpatrick RN [facility] tablets by mouth twice Group (44 691) daily COLESTIPOL HCL [id number] [place] Perry MD COLESTID 1 GM TABS One 11-24-2011 Riana Mathew Penny RN [facility] tablet by mouth twice Group (446 91) daily COLESTIPOL HCL 62376842721 Johan Perry MD COLESTID 1 GM TABS Two 11-24-2011 Melissa Marks RN [facility] tablets by mouth twice Group (44 191) daily COLESTIPOL HCL [id number] Johan Perry MD COLESTID 1 GM TABS One 11-24-2011 - [facility] by mouth twice 06-19-2016 Group (446 91) daily COLESTIPOL HCL [id number] Johan Perry MD COLESTID 1 GM TABS Two 11-24-2011 Melissa Marks RN [facility] by mouth twice Group (44 371) daily COLESTIPOL HCL [id number] JohanMD ENRICO SuhSTID 1 GM TABS One 11-24-2011 - [facility] by mouth twice 06-19-2016 Group (446 91) daily COLESTIPOL HCL [id number] Johan Perry MD COLESTID 1 GM TABS One 11-24-2011 Riana Francis RN [facility] tablet by mouth twice Group (446 91) daily COLESTIPOL HCL [id number] Johan Perry MD COLESTID 1 GM TABS Two 11-24-2011 Vicki Kirkpatrick RN [facility] tablets by mouth twice Group (44 691) daily COLESTIPOL HCL [id number] Johan Perry MD COLESTID 1 GM TABS One 11-24-2011 Melissa Marks RN [facility] tablet by mouth twice Group (446 91) daily COLESTIPOL HCL [id number] Johan Perry MD COLESTID 1 GM TABS Two 11-24-2011 Vicki Kirkpatrick RN [facility] tablets by mouth twice Group (44 691) daily COLESTIPOL HCL 16681214280 Johan Perry MD COLESTID 1 GM TABS Two 11-24-2011 Melissa Marks RN [facility] tablets by mouth twice Group (44 691) daily COLESTIPOL HCL [id number] Johan Perry MD COLESTID 1 GM TABS One 11-24-2011 - [facility] by mouth twice 06-19-2016 Group (446 91) daily COLESTIPOL HCL [id number] Johan Perry MD COLESTID 1 GM TABS One 11-24-2011 Melissa Marks RN [facility] tablet by mouth twice Group (446 91) daily COLESTIPOL HCL [id number] Johan Perry MD COLESTID 1 GM TABS One 11-24-2011 Riana Francis RN [facility] tablet by mouth twice Group (446 91) daily COLESTIPOL HCL [id number] Johan Perry MD Comment: Take 1 g by mouth twice ajay y. ezetimibe ZETIA 10 MG TABS One 07-16-2010 - [facility] by mouth daily 08-26-2011 Group (93472) EZETIMIBE [id number] Rahul Anaya MD fenofibrate fenofibrate 08-10-[address] [facility] nanocrystallized (TRICOR) Gr oup (89389) 145 mg tablet Take 1 tablet by mouth once daily. 0 08/28/2015 Active Comment: Take 1 tablet by mouth once daily. flash glucose sensor flash glucose sensor 08-09-[address] [facility] (FREESTYLE ANITRA 14 (FREESTYLE ANITRA 14 ( 72797) DAY SENSOR) kit DAY SENSOR) kit Indications: Type 2 diabetes mellitus with st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, with long-term current use of insulin (HCC) 1 Each four times daily. 1 Kit 08/09/2018 Active flash glucose sensor (FREESTYLE 08-09-2018 [facility] (46394) ANITRA 14 DAY SENSOR) kit Indications: Type 2 diabetes mellitus with st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, with long-term current use of insulin (HCC) 1 Each four times daily. 1 Kit 08/09/2018 Active flash glucose sensor (FREESTYLE 08-09-2018 [facility] (32461) ANITRA 14 DAY SENSOR) kit Indications: Type 2 diabetes mellitus with st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, with long-term current use of insulin (HCC) 1 Each four times daily. 1 Kit 08/09/2018 Active flash glucose sensor (FREESTYLE 08-09-2018 [facility] (21116) ANITRA 14 DAY SENSOR) kit Indications: Type 2 diabetes mellitus with st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, with long-term current use of insulin (HCC) 1 Each four times daily. 1 Kit 08/09/2018 Active flash glucose sensor (FREESTYLE 08-09-2018 [facility] (96007) ANITRA 14 DAY SENSOR) kit Indications: Type 2 diabetes mellitus with st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, with long-term current use of insulin (HCC) 1 Each four times daily. 1 Kit 08/09/2018 Active flash glucose sensor (FREESTYLE 05-13-2019 [facility] ([id number]) ANITRA 14 DAY SENSOR) kit Indications: Type 2 diabetes mellitus with st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, with long-term current use of insulin (HCC) 1 Each four times daily. 1 Kit 08/09/2018 Active flash glucose sensor (FREESTYLE 08-09-2018 [facility] ([id number]) ANITRA 14 DAY SENSOR) kit Indications: Type 2 diabetes mellitus with st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, with long-term current use of insulin (HCC) 1 Each four times daily. 1 Kit 08/09/2018 Active flash glucose sensor (FREESTYLE 08-09-2018 [facility] ([id number]) ANITRA 14 DAY SENSOR) kit Indications: Type 2 diabetes mellitus with st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, with long-term current use of insulin (HCC) 1 Each four times daily. 1 Kit 08/09/2018 Active flash glucose sensor (FREESTYLE 08-09-2018 [facility] (17056) ANITRA 14 DAY SENSOR) kit Indications: Type 2 diabetes mellitus with st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, with long-term current use of insulin (HCC) 1 Each four times daily. 1 Kit 08/09/2018 Active flash glucose sensor (FREESTYLE 08-09-2018 [facility] ([id number]) ANITRA 14 DAY SENSOR) kit Indications: Type 2 diabetes mellitus with st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, with long-term current use of insulin (HCC) 1 Each four times daily. 1 Kit 08/09/2018 Active flash glucose sensor (FREESTYLE 08-09-2018 [facility] ([id number]) ANITRA 14 DAY SENSOR) kit Indications: Type 2 diabetes mellitus with st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, with long-term current use of insulin (HCC) 1 Each four times daily. 1 Kit 08/09/2018 Active flash glucose sensor (FREESTYLE 08-09-2018 [facility] ([id number]) ANITRA 14 DAY SENSOR) kit Indications: Type 2 diabetes mellitus with st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, with long-term current use of insulin (HCC) 1 Each four times daily. 1 Kit 08/09/2018 Active flash glucose sensor (FREESTYLE 08-09-2018 [facility] ([id number]) ANITRA 14 DAY SENSOR) kit Indications: Type 2 diabetes mellitus with st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, with long-term current use of insulin (HCC) 1 Each four times daily. 1 Kit 08/09/2018 Active flash glucose sensor (FREESTYLE 08-09-2018 Morgan [facility] (08343) ANITRA 14 DAY SENSOR) kit Indications: Type 2 diabetes mellitus with st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, with long-term current use of insulin (HCC) 1 Each four times daily. 1 Kit 08/09/2018 Active flash glucose sensor (FREESTYLE 08-09-2018 [facility] (31459) ANITRA 14 DAY SENSOR) kit Indications: Type 2 diabetes mellitus with st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, with long-term current use of insulin ([facility]) 1 Each four times daily. 1 Kit 08/09/2018 Active flash glucose sensor (FREESTYLE 08-09-2018 [facility] (20850) ANITRA 14 DAY SENSOR) kit Indications: Type 2 diabetes mellitus with st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, with long-term current use of insulin ([facility]) 1 Each four times daily. 1 Kit 08/09/2018 Active flash glucose sensor (FREESTYLE 08-09-2018 [facility] (17935) ANITRA 14 DAY SENSOR) kit Indications: Type 2 diabetes mellitus with st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, with long-term current use of insulin ([facility]) 1 Each four times daily. 1 Kit 08/09/2018 Active Comment: 1 Each four times daily. furosemide furosemide (LASIX) 40 mg 04-19-2019 [facility] tablet Indications: Acute (4 4691) on chronic systolic congestive heart failure (HCC) Take 1 tablet by mouth twice daily. 60 tablet 04/19/2019 Active LASIX 40 MG TABS One tablet by 03-14-2014 [facility] (30330) mouth twice daily FUROSEMIDE [id number] Vicki Kirkpatrick RN LASIX 40 MG TABS One tablet by 03-14-2014 [facility] (79184) mouth daily FUROSEMIDE [id number] Johan Perry MD LASIX 40 MG TABS One tablet by 03-08-2013 - 09-06-2013 [facility] (68503) mouth daily FUROSEMIDE [id number] Johan Perry MD Comment: Take 1 tablet by mouth twice daily. gabapentin gabapentin (NEURONTIN) 10-27-2019 - Morgan Mooney [facility] 300 mg capsule 02-05-2020 Group ([id number]) Indications: Type 2 diabetes mellitus with diabetic neuropathy, with long-term current use of insulin (HCC) Take 3 capsules by mouth three times daily for 30 days. 270 capsule 0 01/06/2020 02/05/2020 Active GABAPENTIN 100 MG CAPS 6 tablets by mouth 09-06-2013 [facility] (46653) three times a day GABAPENTIN [id number] Johan Perry MD GABAPENTIN 100 MG CAPS One tablet by mouth 09-06-2013 [facility] (42563) three times daily GABAPENTIN [id number] Melany Khanna PA-C GABAPENTIN 100 MG CAPS One tablet by mouth 09-06-2013 [facility] (85742) daily GABAPENTIN [id number] Melissa Marks RN GABAPENTIN 600 MG TABS One tablet by mouth 09-06-2013 [facility] (10194) three times daily GABAPENTIN [id number] Johan Perry MD Comment: Take 3 capsules by mouth thr ee times daily for 30 days. hydroCHLOROthiazide HYDROCHLOROTHIAZIDE 12.5 MG 10-09-2011 - [facility] TABS One tablet by mouth 12-11-2014 [facility] (40066) daily- STOP replaced by Lasix HYDROCHLOROTHIAZIDE [id number] Melissa Marks RN HYDROCHLOROTHIAZIDE 25 MG TABS One 09-13-2010 - 06-10-2011 [facility] tablet by mouth daily (27497) HYDROCHLOROTHIAZIDE [id number] Tracee Beard insulin glargine insulin glargine 01-09-2020 [facility] (BASAGLAR KWIKPEN U-100 Grou p (69081) INSULIN) 100 unit/mL (3 mL) Inject 36 Units subcutaneously every 12 hours. 0 01/09/2020 Active LANTUS 100 UNIT/ML SOLN take as 08-26-2011 [facility] (95075) directed INSULIN GLARGINE [id number] Rahul Anaya MD LANTUS 100 UNIT/ML SOLN take as 08-26-2011 [facility] (28195) directed INSULIN GLARGINE [id number] Rahul Anaya MD LANTUS 100 UNIT/ML SOLN take as 08-26-2011 [facility] (21865) directed INSULIN GLARGINE [id number] Rahul Anaya MD LANTUS 100 UNIT/ML SOLN take as 08-26-2011 [facility] (66990) directed INSULIN GLARGINE [id number] Rahul Anaya MD LANTUS 100 UNIT/ML SOLN take as 08-26-2011 [facility] (87515) directed INSULIN GLARGINE [id number] Rahul Anaya MD LANTUS 100 UNIT/ML SOLN take as 08-26-2011 [facility] (48211) directed INSULIN GLARGINE [id number] Rahul Anaya MD LANTUS 100 UNIT/ML SOLN take as 08-26-2011 [facility] (07837) directed INSULIN GLARGINE [id number] Rahul Anaya MD LANTUS 100 UNIT/ML SOLN take as 08-26-2011 [facility] (79370) directed INSULIN GLARGINE [phone] Rahul Anaya MD LANTUS 100 UNIT/ML SOLN take as 08-26-2011 [facility] (27544) directed INSULIN GLARGINE [id number] Rahul Anaya MD LANTUS 100 UNIT/ML SOLN take as 08-26-2011 [facility] (75454) directed INSULIN GLARGINE [id number] Rahul Anaya MD LANTUS 100 UNIT/ML SOLN take as 08-26-2011 [facility] (77431) directed INSULIN GLARGINE [id number] Rahul Anaya MD insulin glargine (BASAGLAR KWIKPEN [facility] Provider [facility] (20082) U-100 INSULIN) 100 unit/mL (3 mL) Inject 34 Units subcutaneously every 12 hours. 0 Active insulin glargine (BASAGLAR KWIKPEN [facility] Provider [facility] (70986) U-100 INSULIN) 100 unit/mL (3 mL) Inject 30 Units subcutaneously every 12 hours. 0 Active Comment: Inject 30 Units subcutaneous ly every 12 hours. Inject 34 Units subcutaneous ly every 12 hours. Inject 36 Units subcutaneous ly every 12 hours. insulin lispro insulin lispro (HUMALOG 01-09-2020 [facility] KWIKPEN INSULIN) 100 (17545) unit/mL Inject 21 Units subcutaneously three times daily before meals. Plus sliding scale as directed ( 1 unit for every 50 mg/dL above 150 mg/dL) 0 01/09/2020 Active HUMALOG 100 UNIT/ML SOLN 12-11-[address] [facility] units sq tid before meals (46917 ) INSULIN LISPRO (HUMAN) [id number] Melissa Marks RN HUMALOG 100 UNIT/ML SOLN 12-11-[address] [facility] units sq before meals (26173) INSULIN LISPRO (HUMAN) [id number] Johan Perry MD HUMALOG 100 UNIT/ML SOLN 12-11-[address] [facility] units sq before meals (57049) INSULIN LISPRO (HUMAN) [id number] Johan Perry MD HUMALOG 100 UNIT/ML SOLN 12-11-[address] [facility] units sq before meals (52941) INSULIN LISPRO (HUMAN) [id number] Johan Perry MD HUMALOG 100 UNIT/ML SOLN 12-11-[address] [facility] units sq before meals (58168) INSULIN LISPRO (HUMAN) [id number] Johan Perry MD HUMALOG 100 UNIT/ML SOLN 12-11-[address] [facility] units sq before meals (53001) INSULIN LISPRO (HUMAN) [id number] Johan Perry MD HUMALOG 100 UNIT/ML SOLN 12-11-[address] [facility] units sq before meals (66490) INSULIN LISPRO (HUMAN) [id number] Johan Perry MD HUMALOG 100 UNIT/ML SOLN 12-11-[address] [facility] units sq before meals (75995) INSULIN LISPRO (HUMAN) [id number] Johan Perry MD HUMALOG 100 UNIT/ML SOLN 12-11-[address] [facility] units sq before meals (19622) INSULIN LISPRO (HUMAN) [id number] Johan Perry MD HUMALOG 100 UNIT/ML SOLN 12-11-[address] [facility] units sq before meals (05594) INSULIN LISPRO (HUMAN) [id number] Johan Perry MD HUMALOG 100 UNIT/ML SOLN 12-11-[address] [facility] units sq before meals (78870) INSULIN LISPRO (HUMAN) [id number] Johan Perry MD HUMALOG 100 UNIT/ML SOLN 12-11-[address] [facility] units sq before meals (96330) INSULIN LISPRO (HUMAN) [id number] Johan Perry MD HUMALOG 100 UNIT/ML SOLN 12-11-[address] [facility] units sq before meals (91718) INSULIN LISPRO (HUMAN) [id number] Johan Perry MD HUMALOG 100 UNIT/ML SOLN 12-11-[address] [facility] units sq before meals (80864) INSULIN LISPRO (HUMAN) [id number] Johan Perry MD HUMALOG 100 UNIT/ML SOLN 12-11-[address] [facility] units sq before meals (01822) INSULIN LISPRO (HUMAN) [id number] Johan Perry MD HUMALOG 100 UNIT/ML SOLN 12-11-[address] [facility] units sq before meals (17662) INSULIN LISPRO (HUMAN) [id number] Johan Perry MD HUMALOG 100 UNIT/ML SOLN 12-11-[address] [facility] units sq before meals (78275) INSULIN LISPRO (HUMAN) [id number] Johan Perry MD HUMALOG 100 UNIT/ML SOLN 12-11-[address] [facility] units sq before meals (29714) INSULIN LISPRO (HUMAN) [id number] Johan Perry MD HUMALOG 100 UNIT/ML SOLN 12-11-[address] [facility] units sq before meals (64450) INSULIN LISPRO (HUMAN) [id number] Johan Perry MD HUMALOG 100 UNIT/ML SOLN 12-11-[address] [facility] units sq before meals (83264) INSULIN LISPRO (HUMAN) [id number] Johan Perry MD HUMALOG SOLN Take as 07-16-2010 - 08-26-2011 [facility] directed (38719) INSULIN LISPRO (HUMAN) SOLN [id number] Rahul Anaya MD HUMALOG SOLN Take as 07-16-2010 [facility] directed INSULIN (446 91) LISPRO (HUMAN) SOLN [id number] Tracee Baerd HUMALOG SOLN Take as 07-16-2010 [facility] directed INSULIN (446 91) LISPRO (HUMAN) SOLN [id number] Tracee Beard HUMALOG SOLN Take as 07-16-2010 - 08-26-2011 [facility] directed (49665) INSULIN LISPRO (HUMAN) SOLN [id number] Rahul Anaya MD HUMALOG SOLN Take as 07-16-2010 - 08-26-2011 [facility] directed (74127) INSULIN LISPRO (HUMAN) SOLN [id number] Rahul Anaya MD HUMALOG SOLN Take as 07-16-2010 [facility] directed INSULIN (446 91) LISPRO (HUMAN) SOLN [id number] Tracee Beard HUMALOG SOLN Take as 07-16-2010 [facility] directed INSULIN (446 91) LISPRO (HUMAN) SOLN [id number] Tracee Beard HUMALOG SOLN Take as 07-16-2010 - 08-26-2011 [facility] directed (58450) INSULIN LISPRO (HUMAN) SOLN [id number] Rahul Anaya MD HUMALOG SOLN Take as 07-16-2010 - 08-26-[facility] (49239) INSULIN LISPRO (HUMAN) SOLN [id number] Rahul Anaya MD HUMALOG SOLN Take as 07-16-2010 [facility] directed INSULIN (446 91) LISPRO (HUMAN) SOLN [id number] Tracee Beard HUMALOG SOLN Take as 07-16-2010 - 08-26-2011 [facility] directed (78650) INSULIN LISPRO (HUMAN) SOLN [id number] Rahul Anaya MD HUMALOG SOLN Take as 07-16-2010 [facility] directed INSULIN (446 91) LISPRO (HUMAN) SOLN [id number] Tracee Beard HUMALOG SOLN Take as 07-16-2010 [facility] directed INSULIN (446 91) LISPRO (HUMAN) SOLN [id number] Tracee Beard HUMALOG SOLN Take as 07-16-2010 - 08-26-2011 [facility] directed (58865) INSULIN LISPRO (HUMAN) SOLN [id number] Rahul Anaya MD HUMALOG SOLN Take as 07-16-2010 [facility] directed INSULIN (446 91) LISPRO (HUMAN) SOLN [id number] Tracee Beard HUMALOG SOLN Take as 07-16-2010 - 08-26-2011 [facility] directed (19739) INSULIN LISPRO (HUMAN) SOLN [id number] Rahul Anaya MD HUMALOG SOLN Take as 07-16-2010 - 08-26-2011 [facility] directed (54902) INSULIN LISPRO (HUMAN) SOLN [id number] Rahul Anaya MD HUMALOG SOLN Take as 07-16-2010 [facility] directed INSULIN (446 91) LISPRO (HUMAN) SOLN [id number] Tracee Beard HUMALOG SOLN Take as 07-16-2010 [facility] directed INSULIN (446 91) LISPRO (HUMAN) SOLN [id number] Tracee Beard HUMALOG SOLN Take as 07-16-2010 - 08-26-2011 [facility] directed (68152) INSULIN LISPRO (HUMAN) SOLN [id number] Rahul Anaya MD HUMALOG SOLN Take as 07-16-2010 - 08-26-2011 [facility] directed (21980) INSULIN LISPRO (HUMAN) SOLN [id number] Rahul Anaya MD HUMALOG SOLN Take as 07-16-2010 [facility] directed INSULIN (446 91) LISPRO (HUMAN) SOLN [id number] Tracee Roblesward HUMALOG SOLN Take as 07-16-2010 - 08-26-2011 [facility] directed (76438) INSULIN LISPRO (HUMAN) SOLN [id number] Rahul Anaya MD HUMALOG SOLN Take as 07-16-2010 [facility] directed INSULIN (446 91) LISPRO (HUMAN) SOLN [id number] Tracee Beard HUMALOG SOLN Take as 07-16-2010 [facility] directed INSULIN (446 91) LISPRO (HUMAN) SOLN [id number] Tracee Beard HUMALOG SOLN Take as 07-16-2010 - 08-26-2011 [facility] (40680) INSULIN LISPRO (HUMAN) SOLN [id number] Rahul Anaya MD HUMALOG SOLN Take as 07-16-[facility] INSULIN (446 91) LISPRO (HUMAN) SOLN [id number] Tracee Beard HUMALOG SOLN Take as 07-16-2010 - 08-26-2011 [facility] directed (46038) INSULIN LISPRO (HUMAN) SOLN [id number] Rahul Anaya MD HUMALOG SOLN Take as 07-16-2010 [facility] directed INSULIN (446 91) LISPRO (HUMAN) SOLN [id number] Tracee Beard HUMALOG SOLN Take as 07-16-2010 - 08-26-2011 [facility] directed (93063) INSULIN LISPRO (HUMAN) SOLN [id number] Rahul Anaya MD HUMALOG SOLN Take as 07-16-2010 - 08-26-2011 [facility] directed (66254) INSULIN LISPRO (HUMAN) SOLN [id number] Rahul Anaya MD HUMALOG SOLN Take as 07-16-[facility] directed INSULIN (446 91) LISPRO (HUMAN) SOLN [id number] Tracee Beard insulin lispro (HUMALOG [facility] Provider [facility] KWIKPEN INSULIN) 100 unit/mL (44 699) Inject 17 Units subcutaneously three times daily [...] [facility] UNIT/ML SOPN as directed (44 457) INSULIN GLULISINE [id number] Vicki Kirkpatrick RN APIDRA SOLOSTAR 100 UNIT/ML SOPN 12-11-2014 [facility] (34209) as directed INSULIN GLULISINE [id number] Vicki Kirkpatrick RN APIDRA SOLOSTAR 100 UNIT/ML SOPN 12-11-2014 [facility] (67172) as directed INSULIN GLULISINE [id number] Vicki Kirkpatrick RN APIDRA SOLOSTAR 100 UNIT/ML SOPN 12-11-2014 [facility] (52099) as directed INSULIN GLULISINE [id number] Vicki Kirkpatrick RN APIDRA SOLOSTAR 100 UNIT/ML SOPN 12-11-2014 [facility] (33394) as directed INSULIN GLULISINE [id number] Vicki Kirkpatrick RN APIDRA SOLOSTAR 100 UNIT/ML SOPN 12-11-2014 [facility] (32061) as directed INSULIN GLULISINE [id number] Vicki Kirkpatrick RN APIDRA SOLOSTAR 100 UNIT/ML SOPN 12-11-2014 [facility] (27498) as directed INSULIN GLULISINE [id number] Vicki Kirkpatrick RN APIDRA SOLOSTAR 100 UNIT/ML SOPN 12-11-2014 [facility] (47169) as directed INSULIN GLULISINE [id number] Vicki Kirkpatrick RN APIDRA SOLOSTAR 100 UNIT/ML SOPN 12-11-2014 [facility] (01486) as directed INSULIN GLULISINE [id number] Vicki Kirkpatrick RN APIDRA SOLOSTAR 100 UNIT/ML SOPN 12-11-2014 [facility] (81223) as directed INSULIN GLULISINE [id number] Vicki Kirkpatrick RN APIDRA SOLOSTAR 100 UNIT/ML SOPN 12-11-2014 [facility] (90909) as directed INSULIN GLULISINE [id number] Vicki Kirkpatrick RN APIDRA SOLN take as directed 08-26-2011 [facility] (00043) INSULIN GLULISINE SOLN [id number] Rahul Anaya MD APIDRJesica SOLN take as directed 08-26-2011 - 12-27-2014 [facility] (10710) INSULIN GLULISINE SOLN [id number] MD CRYSTAL RogersDRJesica SOLN take as directed 08-26-2011 [facility] (06576) INSULIN GLULISINE SOLN [id number] Rahul ROJASDRJesica SOLN take as directed 08-26-2011 - 12-27-2014 [facility] (69619) INSULIN GLULISINE SOLN [id number] MD RADHA Rogers SOLN take as directed 08-26-2011 - 12-27-2014 [facility] (01944) INSULIN GLULISINE SOLN [id number] MD RADHA Rogers SOLN take as directed 08-26-2011 [facility] (91414) INSULIN GLULISINE SOLN [id number] Rahul GARCIA SOLN take as directed 08-26-2011 - 12-27-2014 [facility] (78899) INSULIN GLULISINE SOLN [id number] MD RADHA Rogers SOLAshwin take as directed 08-26-2011 [facility] (97966) INSULIN GLULISINE SOLN [id number] Rahul ESCOBEDO take as directed 08-26-2011 [facility] (20195) INSULIN GLULISINE SOLN [id number] Rahul ESCOBEDO take as directed 08-26-2011 - 12-27-2014 [facility] (68235) INSULIN GLULISINE SOLN [id number] MD RADHA Rogers take as directed 08-26-2011 [facility] (28057) INSULIN GLULISINE SOLN [id number] Rahul GARCIA SOLAshwin take as directed 08-26-2011 - 12-27-2014 [facility] (75128) INSULIN GLULISINE SOLN [id number] MD RADHA Rogers take as directed 08-26-2011 - 12-27-2014 [facility] (14719) INSULIN GLULISINE SOLN [id number] MD RADHA Rogers take as directed 08-26-2011 [facility] (87704) INSULIN GLULISINE SOLN [id number] Rahul ESCOBEDO take as directed 08-26-2011 - 12-27-2014 [facility] (69550) INSULIN GLULISINE SOLN [id number] MD RADHA Rogers take as directed 08-26-2011 [facility] (16250) INSULIN GLULISINE SOLN [id number] Rahul ESCOBEDO take as directed 08-26-2011 [facility] (30233) INSULIN GLULISINE SOLN [id number] Rahul GARCIA SOLAshwin take as directed 08-25-2011 - 12-27-2014 [facility] (94516) INSULIN GLULISINE SOLN [id number] MD RADHA Rogers SOLN take as directed 08-26-2011 [facility] (15425) INSULIN GLULISINE SOLN [id number] Rahul GARCIA SOLAshwin take as directed 08-26-2011 - 12-27-2014 [facility] (53632) INSULIN GLULISINE SOLN [id number] MD RADHA Rogers SOLN take as directed 08-26-2011 - 12-27-2014 [facility] (27264) INSULIN GLULISINE SOLN [id number] MD RADHA Rogers SOLN take as directed 08-26-2011 [facility] (52448) INSULIN GLULISINE SOLN [id number] Rahul GARCIA SOLAshwin take as directed 08-26-2011 - 12-27-2014 [facility] (64224) INSULIN GLULISINE SOLN [id number] MD RADHA Rogers SOLAshwin take as directed 08-26-2011 [facility] (46468) INSULIN GLULISINE SOLN [id number] Rahul GARCIA SOLAshwin take as directed 08-26-2011 - 12-27-2014 [facility] (37266) INSULIN GLULISINE SOLN [id number] MD RADHA Rogers SOLN take as directed 08-26-2011 [facility] (03199) INSULIN GLULISINE SOLN [id number] Rahul GARCIA SOLAshwin take as directed 08-26-2011 [facility] (46315) INSULIN GLULISINE SOLN [id number] Rahul GARCIA SOLN take as directed 08-26-2011 - 12-27-2014 [facility] (24618) INSULIN GLULISINE SOLN [id number] MD RADHA Rogers SOLAswhin take as directed 08-26-2011 [facility] (77099) INSULIN GLULISINE SOLN [id number] Rahul GARCIA SOLAshwin take as directed 08-26-2011 - 12-27-2014 [facility] (82738) INSULIN GLULISINE SOLN [id number] MD RADHA Rogers SOLN take as directed 08-26-2011 - 12-27-2014 [facility] (64923) INSULIN GLULISINE SOLN [id number] MD RADHA Rogers SOLAshwin take as directed 08-26-2011 [facility] (25397) INSULIN GLULISINE SOLN [id number] Rahul Anaya MD insulin, insulin NPH injection 10-13-2019 - Deniz valerio isophane (HumuLIN N,NovoLIN N) 12-12-2019 [facility], 32 units subcutaneous LLC (4 4691) before breakfast and 32 units at bedtime 0 10/13/2019 12/12/2019 Discontinued (Changing Therapy/Dosage Form) HUMULIN N 100 UNIT/ML SUSP take as 08-26-2011 [facility] directed INSULIN ISOPHANE (72508) HUMAN [id number] Johan Perry MD HUMULIN N 100 UNIT/ML SUSP take as 08-26-2011 [facility] directed INSULIN ISOPHANE (88973) HUMAN [id number] Johan Perry MD Comment: 32 units subcutaneous before breakfast and 32 units at bedtime isosorbide isosorbide mononitrate ER 09-22-2014 [facility] (IMDUR) 30 mg 24 hr tablet ( 52876) Take 60 mg by mouth once daily. 0 06/05/2016 Active ISOSORBIDE MONONITRATE ER 60 MG 09-22-2014 [facility] (79666) [id number] One tablet by mouth daily ISOSORBIDE MONONITRATE [id number] Vicki Kirkpatrick RN ISOSORBIDE MONONITRATE ER 60 MG 09-22-2014 - 02-07-2015 [facility] (82317) [id number] One tablet by mouth twice daily ISOSORBIDE MONONITRATE [id number] Vicki Kirkpatrick RN ISOSORBIDE MONONITRATE ER 60 MG 09-22-2014 [facility] (39446) [id number] One tablet by mouth daily- this was increased from 30 mg ISOSORBIDE MONONITRATE [id number] RAUL TimmonsC Comment: Take 60 mg by mouth once rustam ly. isosorbide ISORDIL TITRADOSE 06-27-2011 - Rahul Ludwig art dinitrate TABS 20mg, One 08-26-2011 [facility] (4469 1) tablet by mouth three times daily ISOSORBIDE DINITRATE TABS [id number] Rahul Anaya MD ISORDIL TITRADOSE TABS 20mg, One 06-26-2011 - 08-26-2011 [facility] (68587) tablet by mouth three times daily ISOSORBIDE DINITRATE TABS [id number] Rahul Anaya MD lansoprazole PREVACID 30 MG CPDR As 07-16-2010 - 06-09-2011 [facility] needed (79463) LANSOPRAZOLE [id number] Rahul Anaya MD PREVACID 30 MG CPDR As needed 07-16-2010 - 06-10-2011 [facility] (43071) LANSOPRAZOLE [id number] Tracee Beard latanoprost latanoprost (XALATAN) 0.005 % [facility] Provide r [facility] (17552) ophthalmic solution Use 1 Drop in both [...] r [facility] tablet by mouth daily (44093) LISINOPRIL [id number] Johan Perry MD LISINOPRIL 20 MG TABS 06-10-2011 [facility] art Group LISINOPRIL (70334) [id number] Johan Perry MD LISINOPRIL 20 MG TABS One 06-10-2011 Melany Khanna [facility] tablet by mouth twice daily PA-C (446 91) LISINOPRIL [id number] Melany Khanna, PA-C Comment: Take 1 tablet by mouth once daily. meclizine MECLIZINE HCL 12.5 MG 12-16-2010 - [facility] TABS One tablet by 07-03-2015 Group (44 691) mouth three times daily MECLIZINE HCL [id number] Melissa Marks RN metFORMIN METFORMIN HCL 500 MG 09-27-2014 [facility]S One tablet by Group (44 691) mouth twice daily METFORMIN HCL [id number] Melany Khanna, PA-C metOLazone METOLAZONE 2.5 MG 08-20-2016 - [facility] TABS One tablet by 09-04-2016 RN Group (44 691) mouth three times a week. Take 30 minutes prior to morning lasix dose METOLAZONE [id number] Johan Perry MD metoprolol TOPROL XL 100 MG 12-15-2011 Melissa Marks RN [facility] [id number] One tablet Group ( 53926) by mouth daily METOPROLOL SUCCINATE [id number] Johan Perry MD TOPROL XL 100 MG 12-15-2011 - [facility] [facility] [id number] One tablet by 12-11-2014 Group (4 [id number]) mouth daily- STOP replaced by coreg METOPROLOL SUCCINATE [id number] Melany Khanna PA-C TOPROL XL 100 MG 12-15-2011 Melissa Marks RN [facility] [id number] One tablet by Group (4 4691) mouth daily METOPROLOL SUCCINATE [id number] Johan Perry MD TOPROL XL 100 MG 12-15-2011 - [facility] [id number] One tablet by 12-11-2014 Group (4 4691) mouth daily- STOP replaced by coreg METOPROLOL SUCCINATE [id number] Melissa Marks RN TOPROL XL 100 MG 12-15-2011 [facility] [id number] One tablet by Group (4 4691) mouth daily- STOP replaced by coreg METOPROLOL SUCCINATE 13387145257 Melany Khanna PA-C TOPROL XL 100 MG 12-15-2011 Melissa Marks RN [facility] [id number] One tablet by Group (4 4691) mouth daily METOPROLOL SUCCINATE [id number] Johan Perry MD TOPROL XL 100 MG 12-15-2011 [facility] [id number] One tablet by Group (4 4691) mouth daily- STOP replaced by coreg METOPROLOL SUCCINATE 63210165076 Melany Khanna PA-C TOPROL XL 100 MG 12-15-2011 - [facility] [id number]-[id number] One tablet by 12-11-2014 Group (4 [id number]) mouth daily- STOP replaced by coreg METOPROLOL SUCCINATE 59557872911 Melissathi Marks RN TOPROL XL 100 MG 12-15-2011 - [facility] [id number] One tablet by 12-11-2014 Group (4 4691) mouth daily- STOP replaced by coreg METOPROLOL SUCCINATE 25707029945 Melissathi Marks RN TOPROL XL 100 MG 12-15-2011 Melissa A Selina RN [facility] [id number]-VRV One tablet by Group (4 4691) mouth daily METOPROLOL SUCCINATE 59834618514 Johan Perry MD TOPROL XL 100 MG 12-15-2011 [facility] [id number]-SIK One tablet by Group (4 4691) mouth daily- STOP replaced by coreg METOPROLOL SUCCINATE 13349783181 Melany Khanna PA-C TOPROL XL 100 MG 12-15-2011 - [facility] [id number] One tablet by 12-11-2014 Group (4 4691) mouth daily- STOP replaced by coreg METOPROLOL SUCCINATE [id number] Melissa A Selina RN TOPROL XL 100 MG 12-15-2011 Melissa Mooney Selina RN [facility] [id number] One tablet by Group (4 4691) mouth daily METOPROLOL SUCCINATE 11502156954 Johan Perry MD TOPROL XL 100 MG 12-15-2011 [facility] [id number] One tablet by Group (4 4691) mouth daily- STOP replaced by coreg METOPROLOL SUCCINATE 31579988552 Melany Khanna PA-C TOPROL XL 100 MG 12-15-2011 - [facility] [id number] One tablet by 12-11-2014 Group (4 4691) mouth daily- STOP replaced by coreg METOPROLOL SUCCINATE 77756410326 Melissa A Selina RN TOPROL XL 100 MG 12-15-2011 [facility] [id number]-[id number] One tablet by Group (4 4691) mouth daily- STOP replaced by coreg METOPROLOL SUCCINATE 29665184731 Melany Khanna PA-C TOPROL XL 100 MG 12-15-2011 Melissa Mooney Selina ORTIZ [facility] [id number]-LFN One tablet by Group (4 4691) mouth daily METOPROLOL SUCCINATE 06996192423 Johan Perry MD TOPROL XL 100 MG 12-15-2011 Melissa Mooney Selina ORTIZ [facility] [id number]-[id number] One tablet by Group (4 4691) mouth daily METOPROLOL SUCCINATE 49699676902 Johan Perry MD TOPROL XL 100 MG 12-15-2011 [facility] [id number]-TSF One tablet by Group (4 4691) mouth daily- STOP replaced by coreg METOPROLOL SUCCINATE 02778159283 Melany Khanna PA-C TOPROL XL 100 MG 12-15-2011 - [facility] [id number]-CTD One tablet by 12-11-2014 Group (4 4691) mouth daily- STOP replaced by coreg METOPROLOL SUCCINATE 94119735664 Melissa Mooney Selina ORTIZ TOPROL XL 100 MG 12-15-2011 - [facility] [id number]-IOW One tablet by 12-11-2014 Group (4 4691) mouth daily- STOP replaced by coreg METOPROLOL SUCCINATE 19017900553 Melissa Mooney Selina RN TOPROL XL 100 MG 12-15-2011 Melissa Jesica Selina ORTIZ [facility] [id number]-[id number] One tablet by Group (4 4691) mouth daily METOPROLOL SUCCINATE 31960341886 Johan Perry MD TOPROL XL 100 MG 12-15-2011 [facility] [id number]-FIJ One tablet by Group (4 4691) mouth daily- STOP replaced by coreg METOPROLOL SUCCINATE 16167229632 Melany Khanna PA-C TOPROL XL 100 MG 12-15-2011 [facility] [id number]-[id number] One tablet by Group (4 4691) mouth daily- STOP replaced by coreg METOPROLOL SUCCINATE 24472949587 Melany Khanna PA-C TOPROL XL 100 MG 12-15-2011 - [facility] [id number] One tablet by 12-11-2014 Group (4 4691) mouth daily- STOP replaced by coreg METOPROLOL SUCCINATE 57953641029 Melissa Marks RN TOPROL XL 100 MG 12-15-2011 Melissa Marks RN [facility] [id number]-HBZ One tablet by Group (4 4691) mouth daily METOPROLOL SUCCINATE [phone] Johan Perry MD TOPROL XL 100 MG 12-15-2011 [facility] [id number]-ESL One tablet by Group (4 4691) mouth daily- STOP replaced by coreg METOPROLOL SUCCINATE 02707628499 Melany Khanna PA-C TOPROL XL 100 MG 12-15-2011 - [facility] [id number]-BUT One tablet by 12-11-2014 Group (4 4691) mouth daily- STOP replaced by coreg METOPROLOL SUCCINATE 95984191251 Melissa Marks RN TOPROL XL 100 MG 12-15-2011 Melissa Marks RN [facility] [id number]-DQR One tablet by Group (4 4691) mouth daily METOPROLOL SUCCINATE [id number] Johan Perry MD TOPROL XL 50 MG 08-26-2011 Rahul Allen [facility] [id number]-[id number] (METOPROLOL Nicomaritza SIMMONS Group ([phone]) SUCCINATE) one tablet by mouth twice a day Rahul Anaya MD TOPROL XL 50 MG 08-26-2011 Rahul Allen [facility] [id number] (METOPROLOL Héctor SIMMONS Group ([phone]) SUCCINATE) one tablet by mouth twice a day Rahul Anaya MD TOPROL XL 50 MG 08-26-2011 Rahul Allen [facility] [id number] (METOPROLOL Nicomaritza SIMMONS Group ([phone]) SUCCINATE) one tablet by mouth twice a day Rahul Aanya MD TOPROL XL 50 MG 08-26-2011 Rahul Allen [facility] [id number] (METOPROLOL Nicomaritza SIMMONS Group ([phone]) SUCCINATE) one tablet by mouth twice a day Rahul Anaya MD TOPROL XL 50 MG 08-26-2011 Rahul Allen [facility] [id number]-[id number] (METOPROLOL Nicolozaaretha SIMMONS Group ([phone]) SUCCINATE) one tablet by mouth twice a day Rahul Anaya MD TOPROL XL 50 MG 08-26-2011 Rahul Allen [facility] [id number]-[id number] (METOPROLOL Nicolozaaretha SIMMONS Group ([phone]) SUCCINATE) one tablet by mouth twice a day Rahul Anaya MD TOPROL XL 50 MG 08-26-2011 Rahul Allen [facility] [id number] (METOPROLOL Nicolozaaretha SIMMONS Group (446 91) SUCCINATE) one tablet by mouth twice a day Rahul Anaya MD TOPROL XL 50 MG 08-26-2011 Rahul Allen [facility] [id number] (METOPROLOL Nicolozaaretha SIMMONS Group (446 91) SUCCINATE) one tablet by mouth twice a day Rahul Anaya MD TOPROL XL 50 MG 08-26-2011 Rahul Allen [facility] [id number] (METOPROLOL Nicolozaaretha SIMMONS Group (446 91) SUCCINATE) one tablet by mouth twice a day Rahul Anaya MD TOPROL XL 50 MG 08-26-2011 Rahul Allen [facility] [id number] (METOPROLOL Nicolozaaretha SIMMONS Group (446 91) SUCCINATE) one tablet by mouth twice a day Rahul Anaya MD TOPROL XL 50 MG 08-26-2011 Rahul Allen [facility] [id number] (METOPROLOL Nicolozaaretha SIMMONS Group (446 91) SUCCINATE) one tablet by mouth twice a day Rahul Anaya MD TOPROL XL 50 MG 08-26-2011 Rahul Allen [facility] [id number]-[id number] (METOPROLOL Nicolozakes Group (446 91) SUCCINATE) one tablet by mouth twice a day Rahul Anaya MD TOPROL XL 50 MG 08-26-2011 Rahul Allen [facility] [id number] (METOPROLOL Nicolozaaretha SIMMONS Group ([phone]) SUCCINATE) one tablet by mouth twice a day Rahul Anaya MD TOPROL XL 50 MG 08-26-2011 Rahul Allen [facility] [id number] (METOPROLOL Nicolopanchito SIMMONS Group ([phone]) SUCCINATE) one tablet by mouth twice a day Rahul Anaya MD TOPROL XL 50 MG 08-26-2011 Rahul Allen [facility] [id number] (METOPROLOL Nicolozaaretha SIMMONS Group ([phone]) SUCCINATE) one tablet by mouth twice a day Rahul Anaya MD TOPROL XL 50 MG 08-26-2011 Rahul Allen [facility] [id number] (METOPROLOL Nicolozaaretha SIMMONS Group ([phone]) SUCCINATE) one tablet by mouth twice a day Rahul Anaya MD TOPROL XL 100 MG 06-10-2011 - [facility] [id number]-[id number] 07-03-2011 Group (4469 1) METOPROLOL SUCCINATE [id number] Rahul Anaya MD TOPROL XL 100 MG 06-10-2011 - [facility] [id number] 07-03-2011 Group (4469 1) METOPROLOL SUCCINATE [id number] Funmilayo Morales RN TOPROL XL 50 MG 07-16-2010 [facility] [id number] One tablet by Group (4 4691) mouth twice daily METOPROLOL SUCCINATE 68973361013 Tracee Beard TOPROL XL 50 MG 07-16-2010 [facility] [id number]-RWO One tablet by Group (4 4691) mouth twice daily METOPROLOL SUCCINATE 11017363599 Tracee Cordova Beard TOPROL XL 50 MG 07-16-2010 [facility] [id number]-EHC One tablet by Group (4 4691) mouth twice daily METOPROLOL SUCCINATE 69706413154 Tracee Beard TOPROL XL 50 MG 07-16-2010 [facility] [id number]-KRB One tablet by Group (4 4691) mouth twice daily METOPROLOL SUCCINATE 20383973640 Tracee Cordova Beard TOPROL XL 50 MG 07-16-2010 [facility] [id number]-[id number] One tablet by Group (4 4691) mouth twice daily METOPROLOL SUCCINATE 44526418957 Tracee Cordova Beard TOPROL XL 50 MG 07-16-2010 [facility] [id number]-DLY One tablet by Group (4 4691) mouth twice daily METOPROLOL SUCCINATE 62214775733 Tracee Cordova Beard TOPROL XL 50 MG 07-16-2010 [facility] [id number]-UZB One tablet by Group (4 4691) mouth twice daily METOPROLOL SUCCINATE 70914849737 Tracee Cordova Beard TOPROL XL 50 MG 07-16-2010 [facility] [id number]-AEF One tablet by Group (4 4691) mouth twice daily METOPROLOL SUCCINATE 95021380661 Tracee Cordova Beard TOPROL XL 50 MG 07-16-2010 [facility] [id number]-[id number] One tablet by Group (4 4691) mouth twice daily METOPROLOL SUCCINATE 92451649235 Tracee Cordova Beard TOPROL XL 50 MG 07-16-2010 [facility] [id number]-[id number] One tablet by Group (4 4691) mouth twice daily METOPROLOL SUCCINATE 69125531229 Tracee Beard niacin NIACIN ER 1000 MG CR-TABS 09-22-2014 - 11-03-2014 [facility] One tablet by mouth daily (4 4691) NIACIN 72636349410 Johan Perry MD NIASPAN 1000 MG CR-TABS One 07-16-2010 - [facility] tablet by mouth twice daily 11-25-2012 Grou p (80503) NIACIN (ANTIHYPERLIPIDEMIC) 01278712502 Johan Perry MD NIASPAN 1000 MG CR-TABS One 07-16-2010 - [facility] tablet by mouth twice daily 11-25-2012 Grou p (92468) NIACIN (ANTIHYPERLIPIDEMIC) 04824443127 Johan Perry MD nitroglycerin NITRO-DUR 0.2 MG/HR 08-26-2011 - Funmilayo Morales RN [facility] PT24 on every morning 11-25-2012 Group ([id number]) off qhs NITROGLYCERIN [id number] Rahul Anaya MD NITRO-DUR 0.2 MG/HR PT24 08-25-2011 - 11-25-2012 [facility] on every morning off qhs (19213) NITROGLYCERIN [id number] Johan Perry MD NITRO-DUR 0.2 MG/HR PT24 08-26-2011 Funmilayo Morales RN [facility] on every morning off qhs (73773) NITROGLYCERIN [id number] Rahul Anaya MD NITRO-DUR 0.2 MG/HR PT24 08-25-2011 - 11-25-2012 [facility] on every morning off qhs (84293) NITROGLYCERIN [id number] oJhan Perry MD NITRO-DUR 0.2 MG/HR PT24 08-26-2011 Funmilayo Morales RN [facility] on every morning off qhs (01822) NITROGLYCERIN [id number] Rahul Anaya MD NITRO-DUR 0.2 MG/HR PT24 08-25-2011 - 11-25-2012 [facility] on every morning off qhs (97665) NITROGLYCERIN [id number] Johan Perry MD NITRO-DUR 0.2 MG/HR PT24 08-26-2011 Funmilayo Morales RN [facility] on every morning off qhs (34498) NITROGLYCERIN [id number] Rahul Anaya MD NITRO-DUR 0.2 MG/HR PT24 08-25-2011 - 11-25-2012 [facility] on every morning off qhs (31400) NITROGLYCERIN [id number] Johan Perry MD NITRO-DUR 0.2 MG/HR PT24 08-26-2011 [facility] on every morning off qhs (31842) NITROGLYCERIN [id number] Rahul Anaya MD NITRO-DUR 0.2 MG/HR PT24 08-25-2011 - 11-25-2012 [facility] on every morning off qhs (23291) NITROGLYCERIN [id number] Johan Perry MD NITRO-DUR 0.2 MG/HR PT24 08-26-2011 [facility] on every morning off qhs (35697) NITROGLYCERIN [id number] Rahul Anaya MD NITRO-DUR 0.2 MG/HR PT24 08-25-2011 - 11-25-2012 [facility] on every morning off qhs (44959) NITROGLYCERIN [id number] Johan Perry MD NITRO-DUR 0.2 MG/HR PT24 08-26-2011 [facility] on every morning off qhs (69232) NITROGLYCERIN [id number] Rahul Anaya MD NITRO-DUR 0.2 MG/HR PT24 08-26-2011 [facility] on every morning off qhs (16163) NITROGLYCERIN [id number] Rahul Anaya MD NITRO-DUR 0.2 MG/HR PT24 08-25-2011 - 11-25-2012 [facility] on every morning off qhs (72782) NITROGLYCERIN [id number] Johan Perry MD NITRO-DUR 0.2 MG/HR PT24 08-26-2011 [facility] on every morning off qhs (68174) NITROGLYCERIN [id number] Rahul Anaya MD NITRO-DUR 0.2 MG/HR PT24 08-25-2011 - 11-25-2012 [facility] on every morning off qhs (06258) NITROGLYCERIN [id number] Johan Perry MD NITRO-DUR 0.2 MG/HR PT24 08-25-2011 - 11-25-2012 [facility] on every morning off qhs (96115) NITROGLYCERIN [id number] Johan Perry MD NITRO-DUR 0.2 MG/HR PT24 08-26-2011 Funmilayo Morales RN [facility] on every morning off qhs (32187) NITROGLYCERIN [id number] Rahul Anaya MD NITROGLYCERIN 0.2 MG/HR 12-16-2010 - 06-27-2011 [facility] PT24 Patch, on Q AM, off Q (4469 1) HS NITROGLYCERIN [id number] Rahul Anaya MD NITROSTAT 0.4 MG SUBL 1 07-16-2010 [facility] tablet under tongue every (73788 ) 5 min up to 3 X NITROGLYCERIN [id number] Kath Esquivel MD NITROGLYCERIN 0.3 MG 02-28-2005 [facility] Provider [facility] rt Group SUBLINGUAL TAB Dissolve (28924) 0.4 mg under the tongue. Usual dose for angina is 1 tablet every 5 minutes for maximum of 3 doses in 15 minutes. 0 02/28/2005 Active Comment: Dissolve 0.4 mg under the to ngue. Usual dose for angina is 1 tablet every 5 minutes for maximum of 3 doses in 15 minutes. Nortriptyline nortriptyline (PAMELOR) 11-16-2019 Morgan Valdez [facility] 25 mg capsule (24342) Indications: Type 2 diabetes mellitus with peripheral neuropathy (HCC) Take 1 capsule by mouth daily at bedtime. 30 capsule 5 11/16/2019 Active Comment: Take 1 capsule by mouth ajay y at bedtime. nph insulin, human HUMULIN N 100 UNIT/ML SUSP 08-26-2011 [facility] take as directed (74499) INSULIN ISOPHANE HUMAN [id number] Johan Perry MD HUMULIN N 100 UNIT/ML SUSP take as directed 08-26-2011 [facility] ([id number]) INSULIN ISOPHANE HUMAN [id number] Johan Perry MD HUMULIN N 100 UNIT/ML SUSP take as directed 08-26-2011 [facility] ([id number]) INSULIN ISOPHANE HUMAN [id number] Johan Perry MD HUMULIN N 100 UNIT/ML SUSP take as directed 08-26-2011 [facility] ([id number]) INSULIN ISOPHANE HUMAN [id number] Johan Perry MD HUMULIN N 100 UNIT/ML SUSP take as directed 08-26-2011 [facility] (50612) INSULIN ISOPHANE HUMAN [id number] Johan Perry MD HUMULIN N 100 UNIT/ML SUSP take as directed 08-26-2011 [facility] (35067) INSULIN ISOPHANE HUMAN [id number] Johan Perry MD HUMULIN N 100 UNIT/ML SUSP take as directed 08-26-2011 [facility] (59577) INSULIN ISOPHANE HUMAN [id number] Johan Perry MD HUMULIN N 100 UNIT/ML SUSP take as directed 08-26-2011 [facility] (17538) INSULIN ISOPHANE HUMAN [id number] Johan Perry MD HUMULIN N 100 UNIT/ML SUSP take as directed 08-26-2011 [facility] (36485) INSULIN ISOPHANE HUMAN [id number] Johan Perry MD HUMULIN N 100 UNIT/ML SUSP take as directed 08-26-2011 [facility] (55025) INSULIN ISOPHANE HUMAN [id number] Johan Perry MD omeprazole PRILOSEC 40 MG CPDR One tablet by 08-26-2011 [facility] (62889) mouth twice daily.11 OMEPRAZOLE [id number] Rahul Anaya MD OMEPRAZOLE 20 MG CPDR One tablet by mouth 08-26-2011 [facility] (08936) twice daily OMEPRAZOLE [id number] Vicki Kirkpatrick RN OMEPRAZOLE 20 MG CPDR One tablet by mouth 08-26-2011 [facility] (86992) daily OMEPRAZOLE [id number] Johan Perry MD PRILOSEC 40 MG CPDR One tablet by mouth 08-26-2011 [facility] (92389) twice daily.11 OMEPRAZOLE [id number] Rahul Anaya MD PRILOSEC 40 MG CPDR One tablet by mouth 08-26-2011 [facility] (50124) twice daily.11 OMEPRAZOLE [id number] Rahul Anaya MD PRILOSEC 40 MG CPDR .12 06-10-2011 [facility] (67460) OMEPRAZOLE [id number] Rahul Anaya MD PRILOSEC 40 MG CPDR .12 06-10-2011 [facility] ([id number]) OMEPRAZOLE [id number] Rahul Anaya MD PRILOSEC 40 MG CPDR .12 06-10-2011 [facility] (24424) OMEPRAZOLE [id number] Rahul Anaya MD Ondansetron ZOFRAN 8 MG TABS 1 12-30-2016 - [facility] tablet by mouth every 01-01-2017 Group ([id number]) 8 hours as needed ONDANSETRON HCL [id number] Melany Khanna PA-C pantoprazole PANTOPRAZOLE SODIUM 08-26-2011 Melany Marks [facility] 40 MG TBEC One tablet [facility] (87216) by mouth daily PANTOPRAZOLE SODIUM [id number] Melany M Khanna, PA-C Comment: Take 40 mg by mouth once rustam ly. potassium chloride KLOR-CON M10 10 MEQ 10-09-2011 - [facility] CR-TABS One tablet by 09-04-2016 (63286 ) mouth daily POTASSIUM CHLORIDE GISELE CR [id number] MD LIANE RogersCON M10 10 MEQ 10-09-2011 [facility] CR-TABS One tablet by (23079) mouth daily POTASSIUM CHLORIDE GISELE CR [id number] MD LIANE RogersCON M10 10 MEQ 10-09-2011 [facility] CR-TABS One tablet by RN (42401) mouth daily POTASSIUM CHLORIDE GISELE CR [id number] MD LIANE RogersCON M10 10 MEQ 10-09-2011 [facility] CR-TABS One tablet by (91903) mouth daily POTASSIUM CHLORIDE GISELE CR [id number] MD LIANE RogersCON M10 10 MEQ 10-09-2011 - [facility] CR-TABS One tablet by 09-04-2016 (40907) mouth daily POTASSIUM CHLORIDE GISELE CR [id number] MD LIANE RogersCON M10 10 MEQ 10-09-2011 [facility] CR-TABS One tablet by RN (55143) mouth daily POTASSIUM CHLORIDE GISELE CR [id number] MD LIANE RogersCON M10 10 MEQ 10-09-2011 [facility] CR-TABS One tablet by 09-04-2016 (19913) mouth daily POTASSIUM CHLORIDE GISELE CR [id number] MD LIANE RogersCON M10 10 MEQ 10-09-2011 [facility] CR-TABS One tablet by DR[facility] (01025) mouth daily POTASSIUM CHLORIDE GISELE CR [id number] [place] MD LIANE ZuletaCON M10 10 MEQ 10-09-2011 [facility] CR-TABS One tablet by (90990) mouth daily POTASSIUM CHLORIDE GISELE CR [id number] Johan MD LIANE ZuletaCON M10 10 MEQ 10-09-2011 [facility] CR-TABS One tablet by (72802) mouth daily POTASSIUM CHLORIDE GISELE CR [id number] JohanMD LIANE SuhCON M10 10 MEQ 10-09-2011 [facility] CR-TABS One tablet by RN (42449) mouth daily POTASSIUM CHLORIDE GISELE CR [id number] MD LIANE RogersCON M10 10 MEQ 10-09-2011 - [facility] CR-TABS One tablet by 09-04-2016 (94493) mouth daily POTASSIUM CHLORIDE GISELE CR [id number] [place] MD LIANE ZuletaCON M10 10 MEQ 10-09-2011 Mel[facility] CR-TABS One tablet by RN (44746) mouth daily POTASSIUM CHLORIDE GISELE CR [id number] MD LIANE RogersCON M10 10 MEQ 10-09-2011 [facility] CR-TABS One tablet by (15525) mouth daily POTASSIUM CHLORIDE GISELE CR [id number] MD LIANE RogersCON M10 10 MEQ 10-09-2011 [facility] CR-TABS One tablet by (10488) mouth daily POTASSIUM CHLORIDE GISELE CR [id number] MD LIANE RogersCON M10 10 MEQ 10-09-2011 [facility] CR-TABS One tablet by DRAGAN (14446) mouth daily POTASSIUM CHLORIDE GISELE CR [id number] MD LIANE RogersCON M10 10 MEQ 10-09-2011 Mel[facility] CR-TABS One tablet by RN (87279) mouth daily POTASSIUM CHLORIDE GISELE CR [id number] MD LIANE RogersCON M10 10 MEQ 10-09-2011 [facility] CR-TABS One tablet by (42365) mouth daily POTASSIUM CHLORIDE GISELE CR [id number] MD LIANE RogersCON M10 10 MEQ 10-09-2011 [facility] CR-TABS One tablet by (45208) mouth daily POTASSIUM CHLORIDE GISELE CR [id number] MD LIANE RogersCON M10 10 MEQ 10-09-2011 Mel[facility] CR-TABS One tablet by RN (76634) mouth daily POTASSIUM CHLORIDE GISELE CR [id number] MD LIANE RogersCON M10 10 MEQ 10-09-2011 [facility] CR-TABS One tablet by (03892) mouth daily POTASSIUM CHLORIDE GISELE CR [id number] MD LIANE RogersCON M10 10 MEQ 10-09-2011 Mel[facility] CR-TABS One tablet by RN (68609) mouth daily POTASSIUM CHLORIDE GISELE CR [id number] MD LIANE RogersCON M10 10 MEQ 11-25-2010 - [facility] CR-TABS One tablet by 09-04-2016 RN (54640) mouth daily POTASSIUM CHLORIDE GISELE CR [id number] Johan Perry MD ramipril ALTACE 10 MG CAPS One 07-16-2010 - 06-10-2011 [facility] tablet by mouth twice daily (31211) RAMIPRIL [id number] Rahul Anaya MD ALTACE 10 MG CAPS One tablet by 07-16-2010 - 06-09-2011 [facility] (64268) mouth twice daily RAMIPRIL [id number] Rahul Anaya MD ranolazine ranolazine SR (RANEXA) 02-15-[address] [facility] 1,000 mg Tb12 Take 1 (07332) tablet by mouth twice daily. 0 05/04/2016 Active RANEXA 500 MG [id number] 02-15-2016 Melissa Marks RN [facility] One tablet by mouth (23648) twice daily RANOLAZINE [id number] Beverly Henry [employer] RANEXA 500 MG [id number] 02-15-2016 Melissa Marks RN [facility] One tablet by mouth (12297) twice daily RANOLAZINE [id number] Beverly Henry [employer] RANEXA 1000 MG [id number] 02-15-[address] [facility] One tablet by mouth RN (77009) twice daily RANOLAZINE [id number] Melany Khanna PA-C RANEXA 500 MG [id number] 02-15-2016 Melissa Marks RN [facility] One tablet by mouth (22302) twice daily RANOLAZINE [id number] Beverly Henry NP RANEXA 1000 MG [id number]-[id number] 02-15-[address] [facility] One tablet by mouth RN (35352) twice daily RANOLAZINE [id number] Melany Khanna PA-C RANEXA 500 MG [id number]-[id number] 02-15-2016 Melissa Marks RN [facility] One tablet by mouth (49016) twice daily RANOLAZINE [id number] Beverly Henry [employer] RANEXA 1000 MG [id number]-DRP 02-15-[address] [facility] One tablet by mouth RN (20168) twice daily RANOLAZINE [id number] Melany Khanna PA-C RANEXA 1000 MG [id number]-[id number] 02-15-[address] [facility] One tablet by mouth RN (66169) twice daily RANOLAZINE [id number] Melany Khanna PA-C RANEXA 500 MG [id number]-[id number] 02-15-2016 Melissa Marks RN [facility] One tablet by mouth (98045) twice daily RANOLAZINE [id number] Beverly Henry [employer] RANEXA 500 MG [id number] 02-15-2016 [facility] One tablet by mouth (60339) twice daily RANOLAZINE [id number] Beverly Henry [employer] RANEXA 1000 MG [id number] 02-15-[address] [facility] One tablet by mouth RN (39068) twice daily RANOLAZINE [id number] Melany Khanna PA-C RANEXA 500 MG [id number]-[id number] 02-15-2016 [facility] One tablet by mouth (20963) twice daily RANOLAZINE [id number] Beverly Henry [employer] RANEXA 1000 MG [id number]-[id number] 02-15-[address] [facility] One tablet by mouth RN (85727) twice daily RANOLAZINE [id number] Melany Khanna PA-C RANEXA 1000 MG [id number] 02-15-[address] [facility] One tablet by mouth RN (89835) twice daily RANOLAZINE [id number] Melany Khanna PA-C RANEXA 500 MG [id number] 02-15-2016 [facility] One tablet by mouth (47434) twice daily RANOLAZINE [id number] Beverly Henry [employer] RANEXA 1000 MG [id number]-[id number] 02-15-[address] [facility] One tablet by mouth RN (12713) twice daily RANOLAZINE [id number] Melany Khanna PA-C RANEXA 500 MG [id number] 02-15-2016 Melissa Marks RN [facility] One tablet by mouth (03781) twice daily RANOLAZINE [id number] Beverly Henry [employer] RANEXA 1000 MG [id number] 02-15-[address] [facility] One tablet by mouth RN (94950) twice daily RANOLAZINE [id number] Melany Khanna PA-C RANEXA 500 MG [id number] 02-15-2016 Melissa Marks RN [facility] One tablet by mouth (08608) twice daily RANOLAZINE [id number] Beverly Henry [employer] RANEXA 500 MG [id number] 02-07-2015 - [facility] One tablet by mouth 07-03-2015 (50024) twice daily RANOLAZINE [id number] Johan Perry MD RANEXA 500 MG [id number] 02-07-2015 - [facility] One tablet by mouth 07-03-2015 (49046) twice daily RANOLAZINE [id number] Johan Perry MD RANEXA 500 MG [id number] 02-07-2015 Jessica Odom RN [facility] One tablet by mouth (72105) twice daily RANOLAZINE [id number] Johan Perry MD RANEXA 500 MG [id number] 02-07-2015 Jessica Odom RN [facility] One tablet by mouth (50308) twice daily RANOLAZINE [id number] Johan Perry MD RANEXA 500 MG [id number] 02-07-2015 - [facility] One tablet by mouth 07-03-2015 (39153) twice daily RANOLAZINE [id number] Johan Perry MD RANEXA 500 MG [id number] 02-07-2015 Jessica Odom RN [facility] One tablet by mouth (01061) twice daily RANOLAZINE [id number] Johan Perry MD RANEXA 500 MG [id number] 02-07-2015 - [facility] One tablet by mouth 07-03-2015 (91255) twice daily RANOLAZINE [id number] Johan Perry MD RANEXA 500 MG [id number] 02-07-2015 - [facility] One tablet by mouth 07-03-2015 (31617) twice daily RANOLAZINE [id number] Johan Perry MD RANEXA 500 MG [id number] 02-07-2015 Jessica Odom RN [facility] One tablet by mouth (99206) twice daily RANOLAZINE [id number] Johan Perry MD RANEXA 500 MG [id number] 02-07-2015 Jessica Odom RN [facility] One tablet by mouth (39976) twice daily RANOLAZINE [id number] Johan Perry MD RANEXA 500 MG [id number] 02-07-2015 - [facility] One tablet by mouth 07-03-2015 (69348) twice daily RANOLAZINE [id number] Johan Perry MD RANEXA 500 MG [id number] 02-07-2015 - [facility] One tablet by mouth 07-03-2015 (85526) twice daily RANOLAZINE [id number] Johan Perry MD RANEXA 500 MG [id number] 02-07-2015 Jessica Odom RN [facility] One tablet by mouth (51266) twice daily RANOLAZINE [id number] Johan Perry MD RANEXA 500 MG [id number] 02-07-2015 Jessica Odom RN [facility] One tablet by mouth (03548) twice daily RANOLAZINE [id number] Johan Perry MD RANEXA 500 MG [id number] 02-07-2015 - [facility] One tablet by mouth 07-03-2015 (34100) twice daily RANOLAZINE [id number] Johan Perry MD RANEXA 500 MG [id number] 02-07-2015 - [facility] One tablet by mouth 07-03-2015 (39909) twice daily RANOLAZINE [id number] Johan Perry MD RANEXA 500 MG [id number] 02-07-2015 Jessica Odom RN [facility] One tablet by mouth (05599) twice daily RANOLAZINE [id number] Johan Perry MD RANEXA 500 MG [id number] 02-07-2015 - [facility] One tablet by mouth 07-03-2015 (85502) twice daily RANOLAZINE [id number] Johan Perry MD RANEXA 500 MG [id number] 02-07-2015 Jessica Odom RN [facility] One tablet by mouth (95946) twice daily RANOLAZINE [id number] Johan Perry MD Comment: Take 1 tablet by mouth twice daily. Regular Insulin, insulin regular human 11-08-2019 - Deniz Roy [facility] Human (NOVOLIN R REGULAR 12-12-2019 (14272) U-100 INSULN) 100 unit/mL injection Indications: Type 2 diabetes mellitus with st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, with long-term current use of insulin ([facility]) Inject 15 units Subcutaneously three times daily [...] rOPINIRole rOPINIRole (REQUIP) 0.5 10-20-2019 Morgan Mooney [facility] (68459) mg tablet Take 1 tablet by mouth [...] twice (4 4691) daily SOTALOL HCL AF [id number] Rahul Anaya MD SOTALOL HCL (AF) 80 MG TABS One 07-04-2011 [facility] (89001) tablet by mouth twice daily SOTALOL HCL AF [id number] Funmilayo Morales RN SOTALOL HCL (AF) 80 MG TABS One 07-04-2011 - 03-04-2012 [facility] (33227) tablet by mouth twice daily SOTALOL HCL AF [id number] Rahul Anaya MD SOTALOL HCL (AF) 80 MG TABS One 07-04-2011 [facility] (93018) tablet by mouth twice daily SOTALOL HCL AF [id number] Funmilayo Morales RN SOTALOL HCL (AF) 80 MG TABS One 07-04-2011 [facility] (89171) tablet by mouth twice daily SOTALOL HCL AF [id number] Funmilayo Morales RN SOTALOL HCL (AF) 80 MG TABS One 07-04-2011 - 03-04-2012 [facility] (80450) tablet by mouth twice daily SOTALOL HCL AF [id number] Rahul Anaya MD SOTALOL HCL (AF) 80 MG TABS One 07-04-2011 - 03-04-2012 [facility] (08758) tablet by mouth twice daily SOTALOL HCL AF [id number] Funmilayo Morales RN SOTALOL HCL (AF) 80 MG TABS One 07-04-2011 - 03-04-2012 [facility] (02272) tablet by mouth twice daily SOTALOL HCL AF [id number] Rahul Anaya MD SOTALOL HCL (AF) 120 MG TABS One 07-03-2011 [facility] (40024) tablet by mouth twice daily SOTALOL HCL AF [id number] Funmilayo Morales RN SOTALOL HCL (AF) 120 MG TABS One 07-03-2011 [facility] (86964) tablet by mouth twice daily SOTALOL HCL AF [id number] Funmilayo Morales RN SOTALOL HCL (AF) 120 MG TABS One 07-03-2011 [facility] (92569) tablet by mouth twice daily SOTALOL HCL AF [id number] Funmilayo Morales RN SOTALOL HCL (AF) 120 MG TABS One 07-03-2011 [facility] (57677) tablet by mouth twice daily SOTALOL HCL AF [id number] Funmilayo Morales RN SOTALOL HCL (AF) 120 MG TABS One 07-03-2011 [facility] (81364) tablet by mouth twice daily SOTALOL HCL AF [id number] Funmilayo Morales RN Spironolactone spironolactone 11-26-2017 Morgan Valdez [facility] (ALDACTONE) 25 mg tablet (44 195) Take 1 tablet by mouth once daily. 0 11/26/2017 Active Comment: Take 1 tablet by mouth once daily. traZODone traZODone (DESYREL) 50 09-16-2019 - Deniz Mathur [facility] mg tablet Indications: 03-14-2020 (4419 5) Sleep difficulties Take 2 tablets by mouth daily at bedtime. 180 tablet 1 09/16/2019 03/14/2020 Active Comment: Take 2 tablets by mouth ajay y at bedtime. warfarin warfarin (COUMADIN) 3 mg 09-01-2019 Morgan Valdez [facility] tablet Indications: Chronic (06547) atrial fibrillation (HCC) 3 mg every Mon, Wed, Fri; 6 mg all other days 150 tablet 3 09/01/2019 Active COUMADIN 1 MG TABS Take as directed 3 08-26-2011 [facility] (42426) tablets by mouth one 5mg tablet to =8mg daily WARFARIN SODIUM [id number] Rahul Anaya MD COUMADIN 1 MG TABS managed by Dr. Hunt 08-26-2011 [facility] (99857) Cebul WARFARIN SODIUM [id number] Johan Perry MD COUMADIN 5 MG TABS managed by Dr. Hunt 08-26-2011 [facility] (34969) Cebul WARFARIN SODIUM [id number] Johan Perry MD COUMADIN 5 MG TABS Take as directed 5mg 08-26-2011 [facility] (47961) daily with three 1mg tablets to =8mg daily WARFARIN SODIUM [id number] Rahul Anaya MD Comment: 3 mg every Mon, Wed, Fri; 6 mg all other days Problems Active Problems Category Problem Name Status Date Location Acute myocardial Subsequent non-ST Active 12-11-2014 - [facility] infarction segment elevation - 06-26-2015 (48338) myocardial infarction - Cardiac dysrhythmias Atrial fibrillation Active 07-16-2010 - [facility] (12493) Conduction disorders Automatic implantable Active [facility] cardiac defibrillator in (44 195) situ Congestive heart Acute on chronic Active 12-17-2018 - [facility] failure; systolic heart failure (4419 5) nonhypertensive 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 - [facility] atherosclerosis and infarction - 06-26-2015 (01956) other heart disease - Diabetes mellitus Type 2 diabetes mellitus Active 06-15-2017 - [facility] without complication (06125) Diseases of white blood Leukocytosis Active 01-29-2013 - [facility] cells (25430) Disorders of lipid Hyperlipidemia Active 07-16-2010 - [facility] metabolism (17895) Esophageal disorders Gastroesophageal reflux Active 8 - [facility] disease (00392) Essential hypertension Essential hypertension Active 07-17-19 11 - [facility] (83848) Hyperplasia of prostate Benign prostatic Active 09-16-2007 - [facility] hypertrophy with outflow (44 195) obstruction Inflammatory conditions Balanitis Active 11-16-2016 - [facility] of male genital organs (4419 5) Other and ill-defined Cardiomegaly Active [facility] heart disease (14807) Other hereditary and Restless legs Active 07-28-2018 - [facility] degenerative nervous (86833) system conditions Other nutritional; Body mass index (BMI) Active 03-08-2013 - [facility] endocrine; and 38.0-38.9, adult (65843) metabolic disorders Other nutritional; Body mass index (BMI) Active 03-08-2013 - [facility] endocrine; and 37.0-37.9, adult (67057) metabolic disorders Other nutritional; Body mass index (BMI) Active 03-08-2013 - [facility] endocrine; and 34.0-34.9, adult (31119) metabolic disorders Other nutritional; Body mass index (BMI) Active 03-08-2013 - [facility] endocrine; and 35.0-35.9, adult [facility] metabolic disorders (28565) Other nutritional; Body mass index (BMI) Active 03-08-2013 - [facility] endocrine; and 36.0-36.9, adult - 03-29-2015 (60067) metabolic disorders - Other nutritional; Obesity Active 09-16-2011 - [facility] endocrine; and (55686) metabolic disorders Residual codes; Obstructive sleep apnea Active 07-26-2018 - [facility] unclassified syndrome (15892) Screening or history of Tobacco dependence Active 07-16-2010 - [facility] mental health and syndrome - 12-30-2016 (93542) substance abuse - Spondylosis; Arthritis of facet joint Active 07-14-2017 - [facility] intervertebral disc of lumbar spine (4419 5) disorders; other back problems Unclassified Type 2 diabetes mellitus Active 03-29-2015 - [facility] with diabetic peripheral (44 691) angiopathy without gangrene Unclassified Anticoagulant effect Active 07-03-2011 - [facility] (47093) Unclassified Placement of stent in Active 07-16-2010 - [facility] coronary artery (93025) Unclassified Long-term drug therapy Active 07-16-2010 - [facility], [facility] (02209) Unclassified Implantation of Active 07-16-2010 - [facility] automatic cardiac (40353) defibrillator Past or Other Problems Category Problem Name Status Date Location Fluid and electrolyte Hypokalemia Completed 08-18-2011 [facility] - - Group ([id number]) 06-26-2015 - Lymphadenitis [facility] Mycoses Onychomycosis due to Completed 06-05-2011 [facility] dermatophyte - (61506) Nonspecific chest pain Chest pain Completed 01-30-2016 [facility] (29591) Other aftercare Other termite helper Completed 07-16-2010 [facility] (current) drug therapy - Group (12296) Other and unspecified Benign neoplasm of Completed 02-21-2009 [facility] benign neoplasm colon - (34464) Other circulatory Carotid bruit Completed 03-14-2016 [facility] disease - [facility] (33341) Other circulatory Low blood pressure Completed 08-18-[address] [facility] disease - - Group (43809) 06-26-2015 - Other diseases of veins Stasis dermatitis Completed 04-05-2013 [facility] and lymphatics - (15332) Other gastrointestinal Dysphagia Completed 03-01-2015 [facility] disorders - (56500) Other hematologic High troponin I level Completed 01-29-2013 [facility] conditions - (48760) Other lower respiratory Dyspnea, unspecified Completed 5 [place] disease - - Medical Service , 06-26-2015 [facility] (86691) - Other lower respiratory Dyspnea on exertion Completed 12-06-2014 [facility] - - Group (31573) 06-26-2015 - Other skin disorders Localized swelling, Completed 07-28-2018 [facility] mass and lump, neck - (46745) Other skin disorders Foot callus Completed 10-04-2014 [facility] - (43108) Phlebitis; H/O: Deep vein Completed 01-26-2018 [facility] thrombophlebitis and thrombosis - (82308) thromboembolism Residual codes; Past history of Completed 11-16-2016 [facility] unclassified procedure - (63370) Syncope Vasovagal syncope Completed 12-16-2010 [facility] - - Group ([id number]) 06-26-2015 - Unclassified Family history of Completed 01-26-2018 [facility] stroke - Group (19662) Unclassified Preoperative Completed 11-03-2014 [facility] - - Group (91090) examination 12-25-2014 - Unclassified Type 1 diabetes Completed 07-16-2010 [facility] mellitus with diabetic - - Group (83850) peripheral angiopathy 12-30-2016 without gangrene - Results Result Name Value Range Unit Interpretation Flag Date Location obsolete on 2019-12 OBSOLETE Refill (FAMPWS) Normal 01-06-2020 [facility] LOVELY DEVI ([id number]) 1945 [facility] Date Time Provider Department ([id number]) 01/06/20 MORGAN VALDEZ III FAMPWS During your [...] skin Date Reviewed: 10/27/2019 Reviewed by: Linwood ([facility]) JAZZY Carpenter - Fully Assessed Reason for Visit: Refill Request [94] Visit Diagnosis: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, with long-term current use of insulin ([facility]) [E11.40, Z79.4] Order(s):gabapentin (NEURONTIN) 300 mg capsuleTake [...] by MORGAN VALDEZ III, [facility]) Normal 12-27-2019 [place] [facility] LOVELY DEVI ([id number]) 1945 [facility] Date Time Provider Department (39751) 12/27/19 MORGAN VALDEZ IIIVIVEK During your visit [...] Fully Assessed Reason for Visit: Patient Question [6117] Prescriptions as of 12/27/2019 Sig: INSULIN LISPRO [...] mouth once ajay * LANCETS Use with [employer] TVuch Glucometer * ASPIRIN 81 MG TABLET Take [...] on 12/28/19 cnpn on 2019-12-20 [facility]NP[facility] Telephone ([facility]) Normal 12-20-2019 [place] [facility] LOVELY DEVI ([id number]) 1945 [address] [facility] Time Provider Department (03245) 12/20/19 ANDRE (PHARMACIST), LEE COTTER During your visit today, we recorded the following informati on about you: Lee Moss Pharmacist 12/20/2019 5:07 PM Signed Patient was due to test INR today. Will continue to monitor for results. Lee Moss, Pharmacist ANSHUL SEBASTIAN 12/21/2019 9:21 AM Signed [facility] Ambulatory Pharmacy Anticoagulation Clinic Referring provider: No ref. provider found Lovely Devi is a 74 year old year old male patient being evaluated today for anticoagulation Telemanagement visit. Patient is currently on the following anticoagulant Warfarin Labs PT INR (no units) Date Value 11/26/2018 Test sent to [facility]. 10/16/2017 1.8 01/16/2017 Test sent to [facility]. INR (POCT) (no units) Date Value [...] of liver or green tea, Ensure, Boost, Lula Instant Breakfast, Mulit-Vitamins, and V-8. Plan: ? Advised patient to continue with a hig her weekly warfarin dose at this time. ? Next home INR check scheduled on 01/04/2020 ? Patient verbalizes understanding of the plan. JOLEEN CERRATO, PHARMACIST Clinical Pharmacist, Pharmacy Anticoagulation Clinic Pharmacy Anticoagulation Clinic Pager: [phone] Description Patient has 3 mg tablets of warfarin. Patient takes in the m orning. . Allergies As of Date: 12/20/2019 Noted Allergy Reaction MORPHINE 02/28/2005 ROCEPHIN (CEFTRIAXONE SODIUM) 06/20/2014 14 - Other: See Com ments Comments: Hot flashes; redness to skin Date Reviewed: 10/27/2019 Reviewed by: Linwood ([facility]) JAZZY Carpenter - Fully Assessed Reason for [...] mouth once ajay * LANCETS Use with OneTaomeeuch Glucometer * ASPIRIN 81 MG TABLET Take [...] on progress on 2019-11 PROGRESS HNO ID: [id number] Normal 12-15-2019 Amado Author: Denita Thorpe (Pharmacist) Clinic Service: ? Aneudy Author Type: Pharmacist ([id number]) Type: Progress Notes Filed: 12/27/2019 8:49 AM Note Text: TELEPHONIC APPOINTMENT [place] law requires the collaborative practice agreement to [...] manage ment appointment for diabetes. At 09/15 CHIEF METEOROLOGIST?appt,?insulin NPH dose decreased pt was consulted to pharmacy due to increased hypoglycemia.?At last CHIEF METEOROLOGIST visit gabapentin was initiated and empiric treatment for UTI was s tarted with nitrofurantoin monohydrate.?At PharmD visit on?,?ins ulin lispro dose was decreased and patient was recommended to pursue bas al/bolus insulin pens through [facility] patient assistance. At last PCP appt,?no medication [...] patient confirmed receiving Basaglar and Humalog from [facility], he was instructed t hat [...] Pharmacy:?[facility] ? Rx coverage:?Medicare ? Affordability:?insulins through [facility] ? 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 Atrial Fibrillation (Hcc) Anticoagulated On Coumadin Class 2 Severe Obesity Due to Excess Calories With Serious C omorbidity and Body Mass Index (Bmi) of 38.0 to 38.9 in Adult ([facility]) Stasis Dermatitis of Both Legs Foot Callus Subsequent Non-St Elevation (Nstemi) Myocardial Infarction W ithin 4 Weeks of Initial Infarction ([facility]) Syncope Hyperlipidemia Ldl Goal <100 [place] (Arteriosclerotic Heart Disease) Neurocardiogenic Syncope 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 , With Long-Term Current Use of Insulin (Hcc) Facet Arthritis of Lumbar Region Adenopathy Atrial Flutter ([facility]) Balanitis Coronary Angioplasty Status Elevated Troponin I Level Family History of Cerebrovascular Accident (Cva) History of Deep Venous Thrombosis History of Non-St Elevation Myocardial Infarction (Nstemi) Ischemic Cardiomyopathy Leukocytosis [place] (Obstructive Sleep Apnea) Rls (Restless Legs Syndrome) [...] of vessel, na tive or graft s/p [place] in 1985 - Diverticulosis of colon (without [...] ventricular tachycardia (HCC) - Snoring - Stroke ([facility]) - Tinea of nail 01/13/2011 - Type 2 diabetes mellitus with stage 3 chronic kidney disea se, with long-term current use of insulin ([facility]) 06/15/2017 - Unspecified essential hypertension ALLERGIES Allergen [...] G47.33 327.23 - fax compliance download to [phone] 1 Device 0 - flash glucose sensor [...] once daily. 0 - blood sugar diagnostic ([facility] [facility] BLOOD GLUCOSE SYSTEM) test strip Use as [...] PharmD, BCACP Primary Care Clinical Pharmacist [facility] cnov on 2019-12-15 CNOV Office Visit (PHMEWO) Normal 12-15-[address] [place] [address] Clinic LOVELY DEVI ([id number]) 1945 M [place] Date Time Provider Department ([id number]) 12/15/19 10:30 AM KEMI (PHARMACIST)[facility] During your visit today, we recorded the following informati on about you: Anshul Hancock 12/27/2019 8:49 AM Signed TELEPHONIC APPOINTMENT [place] law requires the collaborative practice agreement to [...] pharmacotherapy management appointment for diabetes. At 09/15 CHIEF METEOROLOGIST?appt,?insulin NPH dose decreased pt was consulted to pharmacy due to increased hypoglycemia.?At last CHIEF METEOROLOGIST visit ga bapentin was initiated and empiric treatment for UTI was started with nit rofurantoin monohydrate.?At PharmD visit on?,?insulin lispro dose was decreased and patient was recommended to pursue basal/ bolus insulin pens through [facility] patient assistance. At last PCP appt,?no medication [...] Pharmacy:?[facility] ? Rx coverage:?Medicare ? Affordability:?insulins through [employer] ? 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 0 - blood sugar diagnostic ([facility] [facility] BLOOD GLUCOSE SYSTEM) test strip Use as [...] TOUCH ULTRASO FT LANCETS) lancets Use with [employer] Glucometer as directed 100 Each 3 - [...] disease, with long-term current use of insulin ([facility]) - ICD9: 250.40, 585.3, V58.67, ICD10: E11.22, [...] LisaD, BCACP Primary Care Clinical Pharmacist [facility] Referring Provider: DENIZ GARSIA [[id number]] Allergies As of Date: 12/15/2019 Noted Allergy Reaction MORPHINE 02/28/2005 ROCEPHIN (CEFTRIAXONE SODIUM) 06/20/2014 14 - Other: See Com ments Comments: Hot flashes; redness to skin Date Reviewed: 10/27/2019 Reviewed by: Linwood ([facility]) JAZZY Carpenter - Fully Assessed Reason for Visit: Allied Health Visit [5] Cmt: DM Primary Visit Diagnosis:Type 2 diabetes mellitus with st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, with long-term current use of insulin ([facility]) [E11.22, N18.3, Z79.4] Prescriptions as of 12/15/2019 [...] Anion gap [Moles/Vol] 6 mmol/L 12-09-19 [facility] (46621) BASO ABS 12-09-2019 [facility] (63168) Basophils/100 WBC 12-09-2019 C [facility] (d) (73732) Calcium [Mass/Vol] 8.7 8.8 - 10.5 MG/DL Abnormal 12-09-2019 [facility] MG/DL (08430) Chloride [Moles/Vol] 98 98 - 107 MEQ/L 0 [facility] MEQ/L (20267) Creatinine [Mass/Vol] 1.68 0.6 - 1.3 MG/DL Abnormal 12-09-19 [facility] MG/DL (09973) EOS ABS 12-09-2019 [facility] (39090) Eosinophils/100 WBC 12-09-2019 [facility] (Bld) (34521) Erythrocyte 12-09-2019 [facility] distribution width ( 98757) (RBC) [Ratio] GFR AFR AMER 52 mL/MIN 12-09-2019 [facility] (63729) GFR/1.73 sq 43 mL/MIN 12-09-2019 [facility] M.predicted MDRD (44 195) (S/P/Bld) [Vol rate/Area] Glucose [Mass/Vol] 209 74 - 106 MG/DL Abnormal 12-09-2019 [facility] MG/DL (97681) HCO3 (Bld) [Moles/Vol] 32.0 mmol/L 020 [facility] (82331) Hematocrit (Bld) 38.6 39 - 55 % % Abnormal 12-09-2019 [facility] [Volume fraction] (4 4195) Hemoglobin (Bld) 12.5 14 - 16.5 g/dL Abnormal 12-09-2019 [facility] [Mass/Vol] g/dL (25446) Lymphocytes (d) 12-09-2019 C [facility] [#/Vol] (39930) Lymphocytes/100 WBC 12-09-2019 [facility] (d) (50343) MCH (RBC) [Entitic 29.8 25.4 - 34.6 pg 0 [facility] mass] pg (40493) MCHC (RBC) [Mass/Vol] 32.4 30 - 36 g/dL g/dL 12-08 [facility] (48229) MCV (RBC) [Entitic 91.9 79 - 98 fL fL 12-09-2019 [facility] vol] (30602) MONO ABS 12-09-2019 [facility] (50372) Monocytes/100 WBC 12-09-2019 C [facility] (d) (04843) NEUT ABS 12-09-2019 [facility] (18007) Neutrophils/100 WBC 12-09-2019 [facility] (d) (31048) Platelet mean volume 10.4 7.4 - 10.4 fL fL 12-08 [facility] ([facility]) [Entitic vol] (13334) Platelets (Bld) 168 140 - 440 K/uL 12-09-2019 [facility] [#/Vol] K/uL (35254) Potassium [Moles/Vol] 4.3 3.5 - 5.1 MEQ/L 12-09-19 20 [facility] MEQ/L (76898) RBC (Bld) [#/Vol] 4.20 4 - 6 M/uL M/uL 12-09-2019 [facility] [facility] ([id number]) Sodium [Moles/Vol] 136 136 - 145 MEQ/L 12-09-2019 [facility] MEQ/L ([id number]) Urea nitrogen 32 6 - 20 mg/dL mg/dL Abnormal 12-09-2019 [facility] [Mass/Vol] ([id number]) WBC (Bld) [#/Vol] 5.7 3.9 - 11 K/uL K/uL 12-09-19 20 [facility] ([id number]) cnpn on 2019-12-08 CNPN Telephone (FAMPWS) Normal 12-08-2019 [facility] LOVELY DEVI ([id number]) 1945 [facility] Time Provider Department ([id number]) 12/08/19 MORGAN VALDEZ III During your visit today, we recorded the following informati on about you: Tasha Chan RN 12/08/2019 1:08 PM Signed Argelia- OT- [facility]- reporting POC- reports this was [...] skin Date Reviewed: 10/27/2019 Reviewed by: Linwood ([facility]) JAZZY Carpenter - Fully Assessed Reason for Visit: [facility] OT POC [Other] Prescriptions as [...] OBSOLETE Refill (FAMPWS) Normal 12-07-2019 [facility] LOVELY DEVI ([id number]) [address] [facility] Time Provider Department ([id number]) 12/07/19 MORGAN VALDEZ III During your visit [...] skin Date Reviewed: 10/27/2019 Reviewed by: Linwood ([facility]) JAZZY Carpenter - Fully Assessed Reason for [...] III, MD on 12/07/19 yoandy on 2019-12-07 [facility] Telephone (FAMPWS) Normal 12-07-2019 [facility] LOVELY DEVI ([id number]) 1945 [facility] Time Provider Department ([id number]) 12/07/19 MORGAN VALDEZ III [facility] During your visit today, we recorded the following informati on about you: Cindi Eastman LPN 12/07/2019 10:56 AM Signed CARLITOS: Nicole with [facility] PT calling with plan of [...] skin Date Reviewed: 10/27/2019 Reviewed by: Linwood ([facility]) JAZZY Carpenter - Fully Assessed Reason for Visit: Plan of Care [Other] Cmt: [facility] PT Prescriptions as of 12/07/2019 [...] on 2019-12-06 CNPN Telephone (PHAMTE) Normal 12-06-2019 [facility] LOVELY DEVI ([id number]) [address] [facility] Time Provider Department ([id number]) 12/06/19 ANDRE (PHARMACIST)LEE During your visit today, we recorded the following informati on about you: Lee Moss, Pharmacist 12/06/2019 3:33 PM Signed [facility] Ambulatory Pharmacy Anticoagulation Clinic Lovely Devi is a 74 year old year old male patient being evaluated today for anticoagulation Telemanagement visit. Patient is currently on the following anticoagulant Warfarin Labs PT INR (no units) Date Value 11/26/2018 Test sent to [facility]. 10/16/2017 1.8 01/16/2017 Test sent to [facility]. INR (POCT) (no units) Date Value [...] a nd advised to call PAC at [phone] if any questions or changes to report. Would like to try one more time to reach patient. INR 2 weeks ago was low and lef t VM for patient so not sure if he got message. Lee Moss, Pharmacist Clinical Pharmacist, Pharmacy Anticoagulation Clinic Pharmacy Anticoagulation Clinic Pager: [phone] Description Patient has 3 mg tablets of warfarin. Patient takes in the m orning. . Cristina Escobar ([employer] Consultant) 12/06/2019 5:16 PM Signed Patient called and left message that stated he r eceived a message re: his INR result and dosing but he cou ldn't understand what dose to take of his warfarin. Patient can be reached at [phone]. Cristina Escobar CPhT (Ground Operations Superintendent) Pharmacy Anticoagulation Clinic Anshul Marquez 12/06/2019 5:27 PM Signed [facility] Pharmacy Anticoagulation Clinic Referring provider: No ref. provider found Lovely Devi is a 74 year old year old male patient being evaluated today for anticoagulation Telemanagement visit. Patient is currently on the following anticoagulant Warfarin Labs PT INR (no units) Date Value 11/26/2018 Test sent to [facility]. 10/16/2017 1.8 01/16/2017 Test sent to [facility]. INR (POCT) (no units) Date Value [...] Pharmacy Anticoagulation Clinic Pharmacy Anticoagulation Clinic Pager: [phone] Description Patient has 3 mg tablets of warfarin. Patient takes in the m orning. . Allergies As of Date: 12/06/2019 Noted Allergy Reaction MORPHINE 02/28/2005 ROCEPHIN (CEFTRIAXONE SODIUM) 06/20/2014 14 - Other: See Com ments Comments: Hot flashes; redness to skin Date Reviewed: 10/27/2019 Reviewed by: Linwood ([facility]) JAZZY Carpenter - Fully Assessed Reason for [...] (PHARMACIST)GABRIELA on CNPN Telephone (FAMPWS) Normal 12-06-2019 [facility] LOVELY DEVI ([id number]) 1945 M [place] Date Time Provider Department ([id number]) 12/06/19 MORGAN VALDEZ III During your visit today, we recorded the following informati on about you: Cnidi Eastman LPN 12/06/2019 4:51 PM Signed Melissa @ [facility] plan of care and resumption [...] skin Date Reviewed: 10/27/2019 Reviewed by: Linwood ([facility]) JAZZY Carpenter - Fully Assessed Reason for [...] mouth once ajay * LANCETS Use with OneTaomeeuch Glucometer * ASPIRIN 81 MG TABLET Take [...] 1.6 2.0 - 3.0 Abnormal 09-0 [facility] ([id number]) time] cnpn on 2019-11-30 CNPN Telephone (PHMEWO) Normal 11-30-2019 [facility] LOVELY DEVI ([id number]) [address] [facility] Time Provider Department ([id number]) 11/30/19 KEMI (PHARMACIST)DENITA During your visit today, we recorded the following informati on about you: Cindi Pichardo RN 11/30/2019 12:55 PM Signed Patient wanted Pharmacist Denita aware that his mail cam e today and he did not receive the Basaglar insulin from [employer] in the mail yesterday or today. He was told to call Denita if did not receive insulin. Please review and advise. DRAGAN Valdez, Pharmacist 12/01/2019 3:54 PM Signed Returned call to patient. Pt 's answers phone to state that insulin package was received today. Denita Thorpe, PharmD, BCACP Primary Care Clinical Pharmacist Oziel [facility] Allergies As of Date: 11/30/2019 Noted Allergy Reaction MORPHINE 02/28/2005 ROCEPHIN (CEFTRIAXONE SODIUM) 06/20/2014 14 - Other: See Com ments Comments: Hot flashes; redness to skin Date Reviewed: 10/27/2019 Reviewed by: Linwood ([facility]) JAZZY Carpenter - Fully Assessed Reason for [...] on 2019-11-23 CNPN Telephone (PHAMTE) Normal 11-23-2019 [facility] LOVELY DEVI ([id number]) [address] [facility] Time Provider Department ([id number]) 11/23/19 BLOSSOM (PHARMACIST)BRIJESH During your visit today, we recorded the following informati on about you: ANSHUL SEBASTIAN 11/23/2019 8:56 AM Signed [facility] Ambulatory Pharmacy Anticoagulation Clinic Referring provider: No ref. provider found Lovely Devi is a 74 year old year old male patient being evaluated today for anticoagulation Telemanagement visit. Patient is currently on the following anticoagulant Warfarin Labs PT INR (no units) Date Value 11/26/2018 Test sent to [facility]. 10/16/2017 1.8 01/16/2017 Test sent to [facility]. INR (POCT) (no units) Date Value [...] Pharmacy Anticoagulation Clinic Pharmacy Anticoagulation Clinic Pager: [phone] Description Patient has 3 mg tablets of warfarin. Patient takes in the m orning. . Allergies As of Date: 11/23/2019 Noted Allergy Reaction MORPHINE 02/28/2005 ROCEPHIN (CEFTRIAXONE SODIUM) 06/20/2014 14 - Other: See Com ments Comments: Hot flashes; redness to skin Date Reviewed: 10/27/2019 Reviewed by: Linwood ([facility]) JAZZY Carpenter - Fully Assessed Reason for [...] mouth once ajay * LANCETS Use with Make Music TVuch Glucometer * ASPIRIN 81 MG TABLET Take [...] (PHARMACIST)JOLEEN on CNPN Telephone (PHMEWO) Normal 11-23-2019 [facility] [facility] LOVELY DEVI ([id number]) 1945 M [place] Date Time Provider Department ([id number]) 11/23/19 KEMI (PHARMACIST)DENITA During your visit today, [...] (to replace Humul in) were sent to [facility] on 10/23. Attempted to call [facility] to flakita nathan, unable to reach customer response representative. Was able to leave voicemail on [...] Thorpe PharmD, BCACP Primary Care Clinical Pharmacist [facility] Denita Thorpe Pharmacist 11/28/2019 4:55 PM Signed Called and spoke with [facility], they confirm that Basa glar is ready for delivery. Will arrive tomorrow. Called and spoke with pt's , Ila aleman re someone over the age of 18 is home to sign for package. She verbalized understanding. Denita Thorpe PharmD, BCACP Primary Care Clinical Pharmacist [facility] Allergies As of Date: 11/23/2019 Noted Allergy Reaction MORPHINE 02/28/2005 ROCEPHIN (CEFTRIAXONE SODIUM) 06/20/2014 14 - Other: See Com ments Comments: Hot flashes; redness to skin Date Reviewed: 10/27/2019 Reviewed by: Linwood ([facility]) JAZZY Carpenter - Fully Assessed Reason for Visit: Medication Update [9079] Prescriptions as of 11/23/2019 Sig: NORTRIPTYLINE 25 [...] 1.7 2.0 - 3.0 Abnormal - [facility] ([id number]) time] progress on 2019-10 PROGRESS HNO ID: [id number] Normal 11-21-2019 [place] Author: Denita Thorpe (Pharmacist) Clinic Service: ? [place] Author Type: Pharmacist ([id number]) Type: Progress Notes Filed: 12/05/2019 9:55 PM Note Text: TELEPHONIC APPOINTMENT [place] law requires the collaborative practice agreement to [...] manage ment appointment for diabetes. At 09/15 CHIEF METEOROLOGIST?appt,?insulin NPH dose decreased pt was consulted to pharmacy due to increased hypoglycemia.?At last CHIEF METEOROLOGIST visit gabapentin was initiated and empiric treatment for UTI was s tarted with nitrofurantoin monohydrate. At PharmD visit on , ins ulin lispro dose was decreased and patient was recommended to pursue bas al/bolus insulin pens through [employer] patient assistance. At last PCP appt, no [...] (Bmi) of 38.0 to 38.9 in Adult ([facility]) Stasis Dermatitis of Both Legs Foot Callus Subsequent Non-St Elevation (Nstemi) Myocardial Infarction W ithin 4 Weeks of Initial Infarction ([facility]) Syncope Hyperlipidemia Ldl Goal <100 Ashd (Arteriosclerotic [...] of vessel, na tive or graft s/p AK in 1985 - Diverticulosis of colon (without [...] ventricular tachycardia (HCC) - Snoring - Stroke ([facility]) - Tinea of nail 01/13/2011 - Type 2 diabetes mellitus with stage 3 chronic kidney disea se, with long-term current use of insulin ([facility]) 06/15/2017 - Unspecified essential hypertension ALLERGIES Allergen [...] humidity and lifetime supplies. Dx. JESSICA G47.33 327.71 - fax compliance download to [phone] 1 Device 0 - flash glucose sensor [...] once daily. 0 - blood sugar diagnostic ([employer] BLOOD GLUCOSE SYSTEM) test strip Use as [...] and LFTs appropriate for royal nued use. [place] law requires the collaborative practice agreement to [...] Abner, BCACP Primary Care Clinical Pharmacist Oziel [facility] cnov on 2019-11-21 CNOV Office Visit (PHMEWO) Normal 11-21-[address] [place] [address] Clinic LOVELY DEVI ([id number]) 1945 M [place] Date Time Provider Department ([id number]) 11/21/19 3:30 PM KEMI (PHARMACIST)DENITA During your visit today, we recorded the following informati on about you: Anshul Hancock 12/05/2019 9:55 PM Signed TELEPHONIC APPOINTMENT [place] law requires the collaborative practice agreement to [...] pharmacotherapy management appointment for diabetes. At 09/15 CHIEF METEOROLOGIST?appt,?insulin NPH dose decreased pt was consulted to pharmacy due to increased hypoglycemia.?At last CHIEF METEOROLOGIST visit ga bapentin was initiated and empiric treatment for UTI was started with nit rofurantoin monohydrate. At PharmD visit on , insulin lispro dose was decreased and patient was recommended to pursue basal/ bolus insulin pens through [employer] patient assistance. At last PCP appt, no [...] on CGM: 158 mg/dL Awaiting approval of [employer] insulin through PAP, Emili log and Basaglar. [...] of vessel, na tive or graft s/p AK in 1985 - Diverticulosis of colon (without [...] disease, with long-term current use of insulin ([facility]) 06/15/2017 - Unspecified essential hypertension ALLERGIES Allergen [...] G47.33 327.23 - fax compliance download to [phone] 1 Device 0 - flash glucose sensor [...] once daily. 0 - blood sugar diagnostic ([employer] BLOOD GLUCOSE SYSTEM) test strip Use as [...] TOUCH ULTRASO FT LANCETS) lancets Use with Make [employer] TVuch Glucometer as directed 100 Each 3 - [...] disease, with long-term current use of insulin ([facility]) - ICD9: 250.40, 585.3, V58.67, ICD10: E11.22, [...] of new basal/bolus insu maribell pens from [facility].?Renal function and LFTs appropriate for continued use. [place] law requires the collaborative practice agreement to [...] switching to Basaglar an d Humalog through [employer] patient assistance, will replace current insulins. ? ACEi/ARB for renal protection:?yes, Scr and K+ ok to royal nue ? HbA1c: 01/14/2020 Patient is not scheduled to see PCP. Patient to follow up with PharmD, pt to call me by end of week with update on if approved by PAP. Patient verbalized understanding of instructions. Denita Thorpe, LiasD, BCACP Primary Care Clinical Pharmacist [facility] Referring Provider: DENIZ GARSIA [[id number]] Allergies As of Date: 11/21/2019 Noted Allergy Reaction MORPHINE 02/28/2005 ROCEPHIN (CEFTRIAXONE SODIUM) 06/20/2014 14 - Other: See Com ments Comments: Hot flashes; redness to skin Date Reviewed: 10/27/2019 Reviewed by: Linwood ([facility]) JAZZY Carpenter - Fully Assessed Reason for [...] on 0 yoandy on 2019-11-09 CNPN Telephone ([facility]) Normal 11-09-2019 [facility] LOVELY DEVI ([id number]) 1945 [facility] Time Provider Department ([id number]) 11/09/19 BLOSSOM (PHARMACIST)BRIJESH During your visit today, we recorded the following informati on about you: ANSHUL SEBASTIAN 11/09/2019 9:42 AM Signed [facility] Ambulatory Pharmacy Anticoagulation Clinic Referring provider: [...] Pharmacy Anticoagulation Clinic Pharmacy Anticoagulation Clinic Pager: [phone] Description Patient has 3 mg tablets of warfarin. Patient takes in the m orning. . Allergies As of Date: 11/09/2019 Noted Allergy Reaction MORPHINE 02/28/2005 ROCEPHIN (CEFTRIAXONE SODIUM) 06/20/2014 14 - Other: See Com ments Comments: Hot flashes; redness to skin Date Reviewed: 10/27/2019 Reviewed by: Linwood ([facility]) JAZZY Carpenter - Fully Assessed Reason for [...] on progress on 2019-10 PROGRESS HNO ID: [id number] Normal 11-04-2019 [facility] Author: Denita Thorpe (Pharmacist) [place] ([id number]) Service: ? Author Type: Pharmacist Type: Progress Notes Filed: 11/15/2019 9:14 AM Note Text: TELEPHONIC APPOINTMENT [place] law requires the collaborative practice agreement to [...] manage ment appointment for diabetes. At 09/15 CHIEF METEOROLOGIST appt, insulin NPH dose decreased pt was consulted to pharmacy due to increased hypoglycemia. At last CHIEF METEOROLOGIST visit gabapentin was initiated and empiric treatment for UTI was s tarted with nitrofurantoin monohydrate. At last PharmD visit on , insulin lispro dose was decreased and patient was recommended to pur funmilayo basal/bolus insulin pens through [facility] patient assista nce. At last PCP appt, [...] Allegramart. States he has not heard from [employer] patient assistance program yet about supply. States [...] ? Adherence: denies missed doses. ? Pharmacy: [facility] ? Rx coverage: Medicare ? Affordability: Gutierrez of brand name insulins is costly on i nsurance, on Relion brand insulin vials ? Diabetes supplies: [employer] ? 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 Esophageal Reflux Benign Neoplasm of Colon Dermatophytosis of Nail Atrial Fibrillation ([facility]) Anticoagulated On Coumadin Class 2 Severe Obesity Due to Excess Calories With Serious C omorbidity and Body Mass Index (Bmi) of 38.0 to 38.9 in Adult ([facility]) Stasis Dermatitis of Both Legs Foot Callus Subsequent Non-St Elevation (Nstemi) Myocardial Infarction W ithin 4 Weeks of Initial Infarction ([facility]) Syncope Hyperlipidemia Ldl Goal <100 Ashd (Arteriosclerotic Heart Disease) Neurocardiogenic Syncope 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 , With Long-Term Current Use of Insulin (Hcc) Facet Arthritis of Lumbar Region Adenopathy Atrial Flutter ([facility]) Balanitis Coronary Angioplasty Status Elevated Troponin I [...] of vessel, na tive or graft s/p AK in 1985 - Diverticulosis of colon (without [...] ventricular tachycardia (HCC) - Snoring - Stroke ([facility]) - Tinea of nail 01/13/2011 - Type 2 diabetes mellitus with stage 3 chronic kidney disea se, with long-term current use of insulin ([facility]) 06/15/2017 - Unspecified essential hypertension ALLERGIES Allergen [...] G47.33 327.23 - fax compliance download to [phone] 1 Device 0 - flash glucose sensor [...] once daily. 0 - blood sugar diagnostic ([employer] BLOOD GLUCOSE SYSTEM) test strip Use as [...] duration of action. Patient assistance forms for [employer] have been fazed and awaiting approval. Renal function and LFTs appropriate for c ontinued use. [place] law requires the collaborative practice agreement to [...] for switching to Basaglar and Humalog th [facility] patient assistance ? ACEi/ARB for renal protection: yes, Scr and K+ ok to royal nue ? HbA1c: 01/14/2020 ? Patient is not scheduled to see PCP. Patient to follow up with PharmD on 11/21/2019. Patient verbalized understanding of instructions. Denita Thorpe, LisaD Primary Care Clinical Pharmacist Oziel [facility] yoandy on 2019-11-04 CNPN Telephone (PHMEWO) Normal 11-04-2019 [place] [facility] LOVELY DEVI ([id number]) 1945 M [place] Date Time Provider Department ([id number]) 11/04/19 KEMI (PHARMACIST)DENITA During your visit today, [...] PharmD, BCACP Primary Care Clinical Pharmacist Oziel [facility] Allergies As of Date: 11/04/2019 Noted Allergy Reaction MORPHINE 02/28/2005 ROCEPHIN (CEFTRIAXONE SODIUM) 06/20/2014 14 - Other: See Com ments Comments: Hot flashes; redness to skin Date Reviewed: 10/27/2019 Reviewed by: Linwood ([facility]) JAZZY Carpenter - Fully Assessed Reason for Visit: Diabetes [34] Cmt: Medication recommendations Visit Diagnosis:Type [address] 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, with long-term current use of insulin ([facility]) [E11.22, N18.3, Z79.4] Order(s):insulin regular human (NOVOLIN [...] mouth once ajay * LANCETS Use with Make Music TVuch Glucometer * ASPIRIN 81 MG TABLET Take [...] (PHARMACIST)DENITA on CNPN Telephone (NICOLEPWS) Normal 11-04-2019 [facility] [facility] LOVELY DEVI ([id number]) 1945 M [place] Date Time Provider Department ([id number]) 11/04/19 MORGAN VALDEZ III During your visit today, we recorded the following informati on about you: Kaitlin King LPN 11/04/2019 3:29 PM Signed Melissa from [facility] Home Health calling for recert orders, 2 visit s weekly for 9 weeks for wound care. Please advise Alex Genao MD 11/07/2019 2:39 PM Signed Ok to photocomposing machine operator verbal ok for re-cert. Dante hCavez Ma 11/07/2019 3:18 PM Signed TC to Melissa - Detailed message left on confidential voicemail . Dante Chavez Ma Allergies As of Date: 11/04/2019 Noted Allergy Reaction MORPHINE 02/28/2005 ROCEPHIN (CEFTRIAXONE SODIUM) 06/20/2014 14 - Other: See Com ments Comments: Hot flashes; redness to skin Date Reviewed: 10/27/2019 Reviewed by: Linwood ([facility]) JAZZY Carpenter - Fully Assessed Reason for [...] 2019-11-04 CNOV Office Visit (PHMEWO) Normal 11-04-[address] [place] [address] [facility] LOVELY DEVI ([id number]) 1945 [facility] Date Time Provider Department ([id number]) 11/04/19 10:30 AM KEMI (PHARMACIST[facility] During your visit today, we recorded the following informati on about you: Anshul Hancock 11/15/2019 9:14 AM Signed TELEPHONIC APPOINTMENT [place] law requires the collaborative practice agreement to [...] pharmacotherapy management appointment for diabetes. At 09/15 CHIEF METEOROLOGIST appt, insulin NPH dose decreased pt was consulted to pharmacy due to increased hypoglycemia. At last CHIEF METEOROLOGIST visit ga bapentin was initiated and empiric treatment for UTI was started with nit rofurantoin monohydrate. At last PharmD visit on , insulin lispr o dose was decreased and patient was recommended to pursue basal/bolus insulin pens through [facility] patient assistance. At last PCP appt, no medication changes made but patient was encouraged to watch carbohydrates in diet and exercise regularly. INTERIM HISTORY: States DM first diagnosed at least >10 years ago. He used to be on Lantus and Humalog but those were expensive so he has switched to insulin NPH and insulin R[facility] States he has not heard from [employer] [facility] patient assistance program yet about supply. States [...] ? Adherence: denies missed doses. ? Pharmacy: [facility] ? Rx coverage: Medicare ? 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 With Stage 3 Chronic Kidney D isease, With Long-Term Current Use of Insulin ([facility]) Facet Arthritis of Lumbar Region Adenopathy Atrial Flutter ([facility]) Balanitis Coronary Angioplasty Status Elevated Troponin I [...] of vessel, na tive or graft s/p AK in 1985 - Diverticulosis of colon (without [...] ventricular tachycardia (HCC) - Snoring - Stroke ([facility]) - Tinea of nail 01/13/2011 - Type 2 diabetes mellitus with st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, with long-term current use of insulin ([facility]) 06/15/2017 - Unspecified essential hypertension ALLERGIES Allergen [...] G47.33 327.23 - fax compliance download to [phone] 1 Device 0 - flash glucose sensor [...] once daily. 0 - blood sugar diagnostic ([employer] BLOOD GLUCOSE SYSTEM) test strip Use as [...] TOUCH ULTRASO FT LANCETS) lancets Use with Make [employer] TVuch Glucometer as directed 100 Each 3 - [...] disease, with long-term current use of insulin ([facility]) - ICD9: 250.40, 585.3, V58.67, ICD10: E11.22, [...] of actio n. Patient assistance forms for [employer] have been fazed and aw aiting approval. Renal function and LFTs appropriate for continued use. [place] law requires the collaborative practice agreement to [...] switching to Basaglar an d Humalog through [employer] patient assistance ? ACEi/ARB for renal protection: yes, Scr and K+ ok to royal nue ? HbA1c: 01/14/2020 ? Patient is not scheduled to see PCP. Patient to follow up with PharmD on 11/21/2019. Patient verbalized understanding of instructions. Denita Thorpe, PharmD Primary Care Clinical Pharmacist [place] [facility] Referring Provider: DENIZ GARSIA [[id number]] Allergies As of Date: 11/04/2019 Noted Allergy Reaction MORPHINE 02/28/2005 ROCEPHIN (CEFTRIAXONE SODIUM) 06/20/2014 14 - Other: See Com ments Comments: Hot flashes; redness to skin Date Reviewed: 10/27/2019 Reviewed by: Linwood ([facility]) JAZZY Carpenter - Fully Assessed Reason for Visit: Allied Health Visit [5] Cmt: DM Primary Visit Diagnosis:Type 2 diabetes mellitus with st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, with long-term current use of insulin ([facility]) [E11.22, N18.3, Z79.4] Prescriptions as of 11/04/2019 [...] mouth once ajay * LANCETS Use with [employer] Glucometer * ASPIRIN 81 MG TABLET Take [...] on progress on 2019-09 PROGRESS HNO ID: [id number] Normal 10-27-2019 [facility] Author: Morgan Valdez III [place] ([id number]) Service: ? Author Type: Physician Type: Progress [...] c ontinue present medications 4. seen at [facility] in August with chest pain and [...] G47.33 327.23 - fax compliance download to [phone] - flash glucose sensor (FREESTYLE ANITRA 14 [...] mouth once daily. - blood sugar diagnostic ([facility] BLOOD GLUCOSE SYSTEM) test strip Use as [...] of vessel, na tive or graft s/p AK in 1985 - Diverticulosis of colon (without [...] care at wound center follow up with brake operator sheet metal follow up with FEDERICO Benítez MD on 2019-10-27 CNOV Office Visit (FAMPWS) Normal 10-27-19 [place] [facility] LOVELY DEVI ([id number]) 1945 M [place] Date Time Provider Department ([id number]) 10/27/19 8:40 AM MORGAN VALDEZ III During [...] and continue present medications 4. seen at [facility] in August with chest pain and treated for cellulitis in ICU. Still having some chest pain, constant aching not clearly worse wi th walking but seems to resolve completely with NTG. To see potato chip packaging machine operator to day. 5. JESSICA--tries to use CPAP [...] G47.33 327.23 - fax compliance download to [phone] - flash glucose sensor (FREESTYLE ANITRA 14 [...] TOUCH ULTRASO FT LANCETS) lancets Use with [employer] Glucometer as directed - Aspirin 81 mg [...] of vessel, na tive or graft s/p AK in 1985 - Diverticulosis of colon (without [...] care at wound center follow up with brake operator sheet metal follow up with FEDERICO Benítez MD, III MD 10/27/2019 9:16 AM Signed PLAN: healthy weight losing diet and regular exercise eat less sugar, bread, potato, pasta, rice, corn, corn syrup, saturated fats recheck HbA1c 3 mos increase gabapentin 900 mg three times/day for nerve pain continue wound care at wound center follow up with brake operator sheet metal follow up with Seven Valdez III MD Referring Provider: MORGAN VALDEZ III [[id number]] Allergies As of Date: 10/27/2019 Noted Allergy Reaction MORPHINE 02/28/2005 ROCEPHIN (CEFTRIAXONE SODIUM) 06/20/2014 14 - Other: See Com ments Comments: Hot flashes; redness to skin Date Reviewed: 10/27/2019 Reviewed by: Linwood (Last Remodeler Repairer) JAZZY Carpenter - Fully Assessed Reason for Visit: 6 Month Exam [189] Primary Visit Diagnosis:Type 2 diabetes mellitus with diabetic neuropathy, with long-term current use of insulin ([facility]) [E11.40, Z79.4] Other Visit Diagnoses:Type 2 diabetes mellitus with st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, with long-term current use of insulin ([facility]) [E11.22, N18.3, Z79.4] Ischemic cardiomyopathy [I25.5] ASHD (arteriosclerotic heart disease) [I25.10] Hyperlipidemia LDL goal <100 [E78.5] Stasis dermatitis of both legs [I87.2] Essential hypertension [I10] JESSICA (obstructive sleep apnea) [G47.33] Order(s):HGB A1C [[id number]] Order #: [id number] FUTURE gabapentin (NEURONTIN) 300 mg capsuleTake 3 [...] care at wound center follow up with brake operator sheet metal follow up with Seven Valdez III MD [...] on 10/27/19 cnpn on 2019-10-26 CNPN Telephone ([facility]) Normal 10-26-2019 [facility] LOVELY DEVI ([id number]) 1945 [address] [facility] Time Provider Department ([id number]) 10/26/19 BLOSSOM (PHARMACIST)BRIJESH During your visit today, we recorded the following informati on about you: ANSHUL SEBASTIAN 10/26/2019 4:37 PM Signed Patient was due to test INR today will continue to monitor f or results. Joleen Cerrato, PharmD Pharmacy Anticoagulation Clinic ANSHUL COLIN 10/27/2019 9:42 AM Signed [facility] Ambulatory Pharmacy Anticoagulation Clinic Lovely Devi is a 74 year old year old male patient being evaluated today for anticoagulation Telemanagement visit. Patient is currently on the following anticoagulant: Warfarin Labs PT INR (no units) Date Value 11/26/2018 Test sent to [facility]. 10/16/2017 1.8 01/16/2017 Test sent to [facility]. INR (POCT) (no units) Date Value [...] information and advised to call PAC at [phone] if any questions or changes to report. PRIYANKA BAUER PHARMACIST Clinical Pharmacist, Pharmacy Anticoagulation Clinic Pharmacy Anticoagulation Clinic Pager: [phone] Allergies As of Date: 10/26/2019 Noted Allergy Reaction MORPHINE 02/28/2005 ROCEPHIN (CEFTRIAXONE SODIUM) 06/20/2014 14 - Other: See Com ments Comments: Hot flashes; redness to skin Date Reviewed: 10/06/2019 Reviewed by: Kath (Dnp.Gas Reverser) SHANELLE Nielsen.ELBA - Fully Assesse d Reason [...] on 2019-10-24 CNPN Telephone (PHMEWO) Normal 10-24-2019 [place] [facility] LOVELY DEVI ([id number]) 1945 M [place] Date Time Provider Department ([id number]) 10/24/19 KEMI (PHARMACIST)DENITA During your visit today, we recorded the following informati on about you: Anshul Hancock 10/24/2019 9:38 AM Signed Received patient's completed patient section of the [employer] res PAP application. Completed prescriber section and wi provider to PCP for review and signature of orders. Medications pursuing through [facility] PAP: ? Basaglar (to replace insulin NPH) ? Humalog (to replace insulin R) Once PCP sign orders, ok to fax to [facility] ( ). Please place in pharmacy mailbox for record keeping and follow up. Thanks! Denita Thorpe PharmD Primary Care Clinical Pharmacist [place] [facility] Linwood Carpenter CMA, MA 10/24/2019 10:19 AM Signed Forms placed on PCP's desk. AUDI Rowan III MD 10/24/2019 1:10 PM Signed form has been signed FEDERICO Alatorre MD, CMA, [place] 10/24/2019 1:47 PM Signed Form faxed and placed in pharmacist mail slot. Linwood Carpenter CMA Allergies As of Date: 10/24/2019 Noted Allergy Reaction MORPHINE 02/28/2005 ROCEPHIN (CEFTRIAXONE SODIUM) 06/20/2014 14 - Other: See Com ments Comments: Hot flashes; redness to skin Date Reviewed: 10/06/2019 Reviewed by: Kath (Dnp.Gas Reverser) SHANELLE Nielsen.CHIEF METEOROLOGIST - Fully Assesse d Reason for Visit: Patient Assistance [[id number]] Cmt: Humalog and Basaglar Prescriptions as of [...] on 2019-10-17 CNPN Telephone (FAMPWS) Normal 10-17-2019 [facility] [facility] LOVELY DEVI ([id number]) 1945 [facility] Date Time Provider Department (58566) 10/17/19 MORGAN VALDEZ III FAMPWS During your visit today, we recorded the following informati on about you: Cindi Eastman LPN 10/17/2019 3:27 PM Signed Melany with [facility] called and needed c larification [...] 25 Hydroxy 24.5 31.0-80.0 ng/mL Low 0 [facility] (38354) Comment: Result Comment: Classificati on of 25 [place] Vitamin D status: Insufficiency/Moderate Defic iency: < or = 30 ng/mL Sufficiency/Optimal Levels: 31 to 80 ng/mL Toxicity: > 100 ng/mL Test performed by chemilumin escent immunoassay. Performed By: #### HBA1C, CM P, LIPB, VITD ####[facility] [address] [place], [place] [phone] lipid panel, basic on 2019-10-14 Cholesterol [Mass/Vol] 123 <200 mg/dL Normal 020 [facility] (02361) Comment: Result Comment: <200 mg/dL, Desirable 200-239 mg/dL, Borderline hi gh >239 mg/dL, High Performed By: #### HBA1C, CM P, LIPB, VITD ####[facility] [address] [place], [place] [phone] Cholesterol in HDL [Mass/Vol] 35 >39 mg/dL Low 10-14-2019 [facility] (64775) Comment: Result Comment: 40-59 mg/dL, Acceptable >59 mg/dL, High: Negative ri sk factor for coronary heart disease <40 mg/dL, Low: Positive ris k factor for coronary heart disease Performed By: #### HBA1C, CM P, LIPB, VITD ####[facility] [address] [place], [place] [phone] Cholesterol in LDL 53 <100 mg/dL Normal 10-14-2019 [facility] [Mass/Vol] [place] (90465) Comment: Result Comment: <100 mg/dL, Optimal 100-129 mg/dL, Near optimal/ above optimal 130-159 mg/dL, Borderline hi gh 160-189 mg/dL, High >189 mg/dL, Very high Secondary prevention optimal LDL Cholesterol levels are recommended to be < 70 mg/dL Performed By: #### HBA1C, CM P, LIPB, VITD ####[facility] [place], [place] [phone] Fasting Time 12 hrs Normal 10-14-2019 [facility] (56995) Comment: Performed By: #### HBA1C, CM P, LIPB, VITD ####[place] [address] [place], [place] [phone] LDL:HDL Ratio 1.51 <2.54 Normal 10-14-2019 [facility] (56850) Comment: Result Comment: Reference: 1. National Cholesterol Educ ation Program ATP III Guideline At-A-Glance Quick Desk Reference: National Heart, Lung, and Blood [place]. National Institutes of Health. 2001: NIH Publication No. 01-3305. 2. An International Atherosc lerosis Society position paper: global recommendations for the management of dyslipidemia: executive summary, Atherosclerosis. 2014: 232(2):410-413. Performed By: #### HBA1C, CM P, LIPB, VITD ####[facility] [address] [place], [place] [phone] Non HDL Cholesterol 88 <130 mg/dL Normal 10-14-2019 [facility] (56749) Comment: Result Comment: <130 mg/dL, Optimal 130-159 mg/dL, Near optimal/ above optimal 160-189 mg/dL, Borderline hi gh 190-219 mg/dL, High >219 mg/dL, Very high Secondary prevention optimal non HDL Cholesterol levels are recommended to be < 100 mg/dL Performed By: #### HBA1C, CM P, LIPB, VITD ####[facility] [address] [facility], [place] [phone] TC:HDL Ratio 3.51 <5.10 Normal 10-14-2019 [facility] (72279) Comment: Performed By: #### HBA1C, CM P, LIPB, VITD ####[place] [address] [place], [place] [phone] Triglyceride [Mass/Vol] 177 <150 mg/dL High 2019 [facility] (09576) Comment: Result Comment: <150 mg/dL, Normal 150-199 mg/dL, Borderline hi gh 200-499 mg/dL, High >499 mg/dL, Very high Performed By: #### HBA1C, CM P, LIPB, VITD ####[place] [address] [place], [place] [phone] VLDL Cholesterol 35 <30 mg/dL High 10-14-2019 [facility] (25111) Comment: Performed By: #### HBA1C, CM P, LIPB, VITD ####[place] [address] [place], [place] [phone] hemoglobin a1c on 2 HbA1c (Bld) [Mass fraction] 171 mg/dL Normal [facility] (77018) Comment: Result Comment: eAG: (Estima devin average glucose) is a calculated value from HgbA1c and is customer response representative of the average blood glucose level in the last 2-3 month period. Performed By: #### HBA1C, CM P, LIPB, VITD ####[place] [address] [place], [place] [phone] HbA1c (Bld) [Mass fraction] 7.6 4.3-5.6 % High [facility] (56860) Comment: Result Comment: [place] Dominique betes Association guidelines indicate that patients with HgbA1c in the range 5.7-6.4% are at increased risk for development of diabetes, and intervention by lifestyle modification may be beneficial. HgbA1c greater o r equal to 6.5% is considered diagnostic of diabetes. Performed By: #### HBA1C, CM P, LIPB, VITD ####[facility] [address] [place] [phone] comp metabolic panel on 2019-10-14 Albumin [Mass/Vol] 4.1 3.9-4.9 g/dL Normal 10-14-2019 [facility] (09036) Comment: Performed By: #### HBA1C, CM P, LIPB, VITD ####[facility] [address] [place] [phone] ALP [Catalytic activity/Vol] 55 38-113 U/L Normal 0 10-14-2019 [facility] (38808) Comment: Performed By: #### HBA1C, CM P, LIPB, VITD ####[place] [address] [place] [phone] ALT [Catalytic activity/Vol] 26 10-54 U/L Normal 0 10-14-2019 [facility] (98173) Comment: Performed By: #### HBA1C, CM P, LIPB, VITD ####[place] [address] [place], [place] [phone] Anion gap [Moles/Vol] 10 9-18 mmol/L Normal 10-14-19 [facility] (88019) Comment: Performed By: #### HBA1C, CM P, LIPB, VITD ####[facility] [address] [place] [phone] AST [Catalytic activity/Vol] 23 14-40 U/L Normal 0 10-14-2019 [facility] (02335) Comment: Performed By: #### HBA1C, CM P, LIPB, VITD ####[facility] [address] [place], [place] [phone] Bilirubin [Mass/Vol] 0.4 0.2-1.3 mg/dL Normal 0 [facility] (03434) Comment: Performed By: #### HBA1C, CM P, LIPB, VITD ####[facility] [address] [place], [place] [phone] Calcium [Mass/Vol] 9.0 8.5-10.2 mg/dL Normal 10-14-2019 [facility] (52578) Comment: Performed By: #### HBA1C, CM P, LIPB, VITD ####[facility] [address] [place], [place] [phone] Chloride [Moles/Vol] 101 97-105 mmol/L Normal 0 [facility] (04644) Comment: Performed By: #### HBA1C, CM P, LIPB, VITD ####[place] [address] [place], [place] [phone] CO2 [Moles/Vol] 24 22-30 mmol/L Normal 10-14-2019 [facility] (99488) Comment: Performed By: #### HBA1C, CM P, LIPB, VITD ####[facility] [place], [place] [phone] Creatinine [Mass/Vol] 1.30 0.73-1.22 mg/dL High 10-14-19 20 [facility] (76692) Comment: Performed By: #### HBA1C, CM P, LIPB, VITD ####[facility] [address] [place], [place] [phone] eGFR- Amer. >60 Normal 10-14-2019 [facility] (42873) Comment: Performed By: #### HBA1C, CM P, LIPB, VITD ####[facility] [place], [place] [phone] GFR/1.73 sq M predicted among 54 . Normal 10-14-2019 [facility] non-blacks MDRD (S/P/Bld) [Vol (53569) rate/Area] Comment: Result Comment: eGFR (Estima devin [...] #### HBA1C, CM P, LIPB, VITD ####[facility] [address] Av[address], [place] [phone] Glucose [Mass/Vol] 197 74-99 mg/dL High 10-14-2019 [facility] (86284) Comment: Result Comment: The [place] Diabetes Association (ADA) provides guidance for cutoff [...] for diagnosis of diabetes. Reference: Standards of [facility] Care in Diabetes 2016, [place] Diabetes Association. Diabetes Care. 2016.39(Suppl 1). Performed By: #### HBA1C, CM P, LIPB, VITD ####[facility] [address] [place], [place] [phone] Potassium [Moles/Vol] 4.6 3.7-5.1 mmol/L Normal 10-14-19 [facility] (35749) Comment: Performed By: #### HBA1C, CM P, LIPB, VITD ####[facility] [address] [place], [place] [phone] Protein [Mass/Vol] 6.0 6.3-8.0 g/dL Low 10-14-2019 [facility] (63375) Comment: Performed By: #### HBA1C, CM P, LIPB, VITD ####[facility] [address] [place], [place] [phone] Sodium [Moles/Vol] 135 136-144 mmol/L Low 10-14-2019 [facility] (70915) Comment: Performed By: #### HBA1C, CM P, LIPB, VITD ####[facility] [address] [place], [place] [phone] Urea nitrogen [Mass/Vol] 27 9-24 mg/dL High 10-13 [facility] (62903) Comment: Performed By: #### HBA1C, CM P, LIPB, VITD ####[facility] [place], [place] [phone] albumin/creat ratio on 2019-10-14 Albumin Urine Random <12.0 Normal 0 [facility] (81472) Comment: Performed By: #### UACR #### [facility], [place] [phone] Albumin/Creat Ratio Not calculated <30 Normal 10-13 [facility] (61776) Comment: Performed By: #### UACR #### [facility] [address]CH[address], [place] [phone] Creatinine,Urine,Ran 63.4 20-300 mg/dL Normal 0 [facility] (04950) Comment: Performed By: #### UACR #### [facility] [address], [place] [phone] progress on 2019-09 PROGRESS HNO ID: [id number] Normal 10-12-2019 [facility] Author: Denita Thorpe (Pharmacist) [place] ([id number]) Service: ? Author Type: Pharmacist Type: Progress Notes Filed: 10/13/2019 5:40 PM Note Text: [place] law requires the collaborative practice agreement to [...] is presenting today for initial pharmacotherapy [facility] appointment for diabetes. At 09/15 CHIEF METEOROLOGIST appt, insulin NPH dose decreased pt was consulted to pharmacy due to increased hypoglycemia. At last CHIEF METEOROLOGIST visit gabapentin was initiated and empiric treatment [...] really watch what he eats. He has [employer] CGM. Does not have [employer] accounts , states he is not too [...] ? Adherence: denies missed doses. ? Pharmacy: [facility] ? Rx coverage: Medicare ? Affordability: Gutierrez of brand name insulins is costly on i nsurance, on Relion brand insulin vials ? Diabetes supplies: [employer] Anitra ACTIVE PROBLEM LIST Cardiomegaly Essential Hypertension [...] of vessel, na tive or graft s/p [place] in 1985 - Diverticulosis of colon (without [...] G47.33 327.23 - fax compliance download to [phone] - flash glucose sensor (FREESTYLE ANITRA 14 [...] mouth once daily. - blood sugar diagnostic ([facility] BLOOD GLUCOSE SYSTEM) test strip Use as [...] ase, with long-term current use of insulin ([facility]) - ICD9: 250.40, 585.3 , V58.67, ICD10: [...] of a ction. Patient assistance forms for [employer] given to pt to pursue basal insulin. Renal function and LFTs appropriate for continued use. [place] law requires the collaborative practice agreement to [...] 11/03, to u pload CGM data on [employer] prior to appt with help from daughter. Patient verbalized understanding of instructions. Denita Thorpe, [place] Primary Care Clinical Pharmacist [place] [facility] elban on 2019-10-12 CNPN Telephone (KettoRAV) Normal 10-12-2019 [facility] [facility] LOVELY DEVI ([id number]) 1945 [place] Date Time Provider Department ([id number]) 10/12/19 BLOSSOM (PHARMACIST)SHARIF During your visit today, we recorded the following informati on about you: ANSHUL SEBASTIAN 10/12/2019 9:23 AM Signed [facility] Ambulatory Pharmacy Anticoagulation Clinic Referring provider: No ref. provider found Lovelyguadalupe Devi is a 73 year old year old male patient being evaluated today for anticoagulation Telemanagement visit. Patient is currently on the following anticoagulant Warfarin Labs PT INR (no units) Date Value 11/26/2018 Test sent to [facility]. 10/16/2017 1.8 01/16/2017 Test sent to [facility]. INR (POCT) (no units) Date Value [...] Pharmacy Anticoagulation Clinic Pharmacy Anticoagulation Clinic Pager: [phone] Description Patient has 3 mg tablets of warfarin. Patient takes in the m orning. . Allergies As of Date: 10/12/2019 Noted Allergy Reaction MORPHINE 02/28/2005 ROCEPHIN (CEFTRIAXONE SODIUM) 06/20/2014 14 - Other: See Com ments Comments: Hot flashes; redness to skin Date Reviewed: 10/06/2019 Reviewed by: Kath (Faiza.Gas Reverser) Blaz, WOOD HEEL FLAP INSERTER.CHIEF METEOROLOGIST - Fully Assesse d Reason for Visit: [...] mouth once ajay * LANCETS Use with [employer] Glucometer * ASPIRIN 81 MG TABLET Take [...] 2019-10-12 CNOV Office Visit (PHMEWO) Normal 10-12-19 [facility] [facility] LOVELY DEVI ([id number]) 1945 [place] Date Time Provider Department ([id number]) 10/12/19 3:00 PM KEMI (PHARMACIST)DENITA During your visit today, we recorded the following informati on about you: Anshul Hancock 10/13/2019 5:40 PM Signed [place] law requires the collaborative practice agreement to [...] pharmacotherapy management appointment for diabetes. At 09/15 [facility] appt, insulin NPH dose decreased pt was consulted to pharmacy due to increased hypoglycemia. At last [facility] visit ga bapentin was initiated and empiric treatment for UTI was started with nit rofurantoin monohydrate. INTERIM HISTORY: States DM first diagnosed at least >10 years ago. He used to be on Lantus and Humalog but those were expensive so he has switched to insulin NPH and insulin R, Relion brand vials from [employer]. Reports in the past having l ower BG in the 50s, states it does not happen often but when it does he usually needs to treat it twice to improve the blood sugar. Reports does not really watch what he eats. He has [employer] CGM. Does not hav e [employer] accounts, states he is not too tech [...] ? Adherence: denies missed doses. ? Pharmacy: [facility] ? Rx coverage: Medicare ? 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 With Stage 3 Chronic Kidney D isease, With Long-Term Current Use of Insulin ([facility]) Facet Arthritis of Lumbar Region Adenopathy Atrial [...] (arteriosclerotic heart disease) 02/19/2015 - Atrial fibrillation ([facility]) 07/03/2011 - Automatic implantable cardiac defibrillator in situ - Petit's esophagus with esophagitis 03/01/2015 - Benign neoplasm of colon - Chronic diarrhea 09/16/2011 - Coronary atherosclerosis of unspecified type of vessel, na tive or graft s/p [place] in 1985 - Diverticulosis of colon (without [...] ventricular tachycardia (HCC) - Snoring - Stroke ([facility]) - Tinea of nail 01/13/2011 - Type 2 diabetes mellitus with st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, with long-term current use of insulin ([facility]) 06/15/2017 - Unspecified essential hypertension ALLERGIES Allergen [...] G47.33 327.23 - fax compliance download to [phone] - flash glucose sensor (FREESTYLE ANITRA 14 [...] mouth once daily. - blood sugar diagnostic ([facility] BLOOD GLUCOSE SYSTEM) test strip Use as [...] TOUCH ULTRASO FT LANCETS) lancets Use with Ilusis Glucometer as directed - Aspirin 81 mg [...] disease, with long-term current use of insulin ([facility]) - ICD9: 250.40, 585.3, V58.67, ICD10: E11.22, [...] on and LFTs appropriate for continued use. [place] law requires the collaborative practice agreement to be initiated by a physician in order to provide medication titration. [facility], pharmacy will only provide medication recommend ations [...] on 11/03, to upload CGM data on [employer] prior to appt with help from daughter. Patient verbalized understanding of instructions. Denita Thorpe PharmD Primary Care Clinical Pharmacist Oziel [facility] Anshul Hancock 10/12/2019 3:56 PM Addendum ? [...] replace insulin R) Referring Provider: DENIZ GARSIA [[id number]] Allergies As of Date: 10/12/2019 Noted Allergy Reaction MORPHINE 02/28/2005 ROCEPHIN (CEFTRIAXONE SODIUM) 06/20/2014 14 - Other: See Com ments Comments: Hot flashes; redness to skin Date Reviewed: 10/06/2019 Reviewed by: Kath (Dnp.Gas Reverser) SHANELLE Nielsen.ELBA - Fully Assesse d Reason [...] mouth once ajay * LANCETS Use with OneTaomeeuch Glucometer * ASPIRIN 81 MG TABLET Take [...] on progress on 2019-09 PROGRESS HNO ID: [id number] Normal 10-06-2019 [facility] Author: Kath (Faiza.Elba) SEFERINO Nielsen Amado ([id number]) Service: ? Author Type: Nurse Practitioner Type: Progress Notes Filed: 10/06/2019 3:42 PM Note Text: Chief Complaint Patient presents with: Hematuria: urine taken but home health 2 weeks ago Burning with urination HPI Lovely Devi is a 73 year old male who presents he re today for a several day history of urinary symptoms. This is an [facility] patient of Dr. Morgan Valdez III MD. This is a new patient to me. Patient was recently admitted a nd discharged from [facility] for cellulitis to right leg. He [...] states it was discontinued by his [facility] doctor. Past medical history, appointments, medications, [...] of vessel, na tive or graft s/p AK in 1985 - Diverticulosis of colon (without [...] se, with long-term current use of insulin ([facility]) 06/15/2017 - Unspecified essential hypertension Previous Surgical History PAST SURGICAL HISTORY Procedure Laterality Date - [facility] Dr. Anthony-repeat 3 years-11/2020 - COLONOSCOPY W/BX 02/21/09 - EGD W/O OR W/BRUSH/WASH EGD - EGD W/O OR W/BRUSH/WASH 02/16/08 EGD inpt [facility] H-pylori negative - EGD W/O OR W/BRUSH/WASH 05/24/15 EGD - EGD W/O OR W/BRUSH/WASH 12/21/2017 Dr. Anthony-repeat 3 years-11/2020 - HEART CATHETERIZATION 12/15/2014 [facility] - see scanned documents - HEART [...] G47.33 327.23 - fax compliance download to [phone] - flash glucose sensor (FREESTYLE ANITRA 14 [...] mouth once daily. - blood sugar diagnostic ([facility] BLOOD GLUCOSE SYSTEM) test strip Use as [...] Lacey Nguyen APN Student Kath Nielsen DNP, CHIEF METEOROLOGIST This note was completed with Endorse dictation software. Note was reviewed for accuracy. There may be minor misspellings or gr ammar miscues with Endorse Dictation. Lacey Nguyen APN student from [facility] completed initial history and physical exam. I reviewed the note, examined the patient and concur with plan of care. [place] [id number] cnov on 2019-10-06 CNOV Office Visit (FAMPWS) Normal 10-06-[address] [place] [address] [facility] LOVELY DEVI ([id number]) 1945 [facility] Date Time Provider Department ([id number]) 10/06/19 1:40 PM KATH NIELSEN (FAIZA.ELBA) FAMPWS During your visit today, we recorded the following informati on about you: Temperature Pulse Respiration Blood pressure 98.4 degrees 65/minute 14/minute 128/70 Weight 118.8 kg Kath Nielsen DNP.ELBA, WOOD HEEL FLAP INSERTER.ELBA 10/06/2019 3:42 PM Signed Chief Complaint Patient [...] Patient was recently admitted and discharged from [facility] for cellulitis to right leg . [...] of vessel, na tive or graft s/p AK in 1985 - Diverticulosis of colon (without [...] EGD W/O OR W/BRUSH/WASH 02/16/08 EGD inpt [facility] H-pylori negative - EGD W/O OR W/BRUSH/WASH 05/24/15 EGD - EGD W/O OR W/BRUSH/WASH 12/21/2017 Dr. Anthony-repeat 3 years-11/2020 - HEART CATHETERIZATION 12/15/2014 [facility] - see scanned documents - HEART [...] G47.33 327.23 - fax compliance download to [phone] - flash glucose sensor (videScreen NetworksSTYLE ANITRA 14 DAY SENSOR) kit 1 Each [...] mouth once daily. - blood sugar diagnostic ([facility] [facility] BLOOD GLUCOSE SYSTEM) test strip Use as [...] TOUCH ULTRASO FT LANCETS) lancets Use with Make Music TVuch Glucometer as directed - Aspirin 81 mg [...] Lacey Nguyen APN Student Kath Nielsen, DNP, CHIEF METEOROLOGIST This note was completed with [employer] software. Note was reviewed for accuracy. There may be minor misspellings or gramm ar miscues with Endorse Dictation. Lacey Nguyen APN student from [facility] completed initial history and physical exam. I reviewed the note, examined the patient and concur with plan of care. [place] [id number] Lacey Nguyen APN Student 10/06/2019 2:32 PM [...] For severe symptoms seek care at the [facility]. Plan of care, medicaiton side effects [...] skin Date Reviewed: 10/06/2019 Reviewed by: Kath (Faiza.Gas Reverser) SHANELLE Nielsen.CHIEF METEOROLOGIST - Fully Assesse d Reason for Visit: Hematuria [335] Cmt: urine taken but home health 2 weeks ago Primary Visit Diagnosis:Dysuria [R30.0] Other Visit Diagnoses:Microscopic hematuria [R31.29] Type 2 diabetes mellitus with diabetic neuropathy, with long-term current use of insulin (HCC) [E11.40, Z79.4] Order(s):UA DIP, URINE (POC) [[id number]] Order #: [id number] ec. #:[id number] nitrofurantoin monohydrate and macrocrystal (MACROBID) 100 m [...] Recorded Encounter Status:Closed by KATH NIELSEN DNP CHIEF METEOROLOGIST on 10/06/19 cnpn [facility] Normal 09-28-2019 [facility] LOVELY DEVI ([id number]) 1945 M [place] Date Time Provider Department ([id number]) 09/28/19 BLOSSOM (PHARMACIST)BRIJESH During your visit today, we recorded the following informati on about you: ANSHUL SEBASTIAN 09/28/2019 10:53 AM Signed [facility] Ambulatory Pharmacy Anticoagulation Clinic Referring provider: No ref. provider found Lovelyguadalupe Ornelasalmitajenny is a 73 year old year old male patient being evaluated today for anticoagulation Telemanagement visit. Patient is currently on the following anticoagulant Warfarin Labs PT INR (no units) Date Value 11/26/2018 Test sent to [facility]. 10/16/2017 1.8 01/16/2017 Test sent to [facility]. INR (POCT) (no units) Date Value [...] Pharmacy Anticoagulation Clinic Pharmacy Anticoagulation Clinic Pager: [phone] Description Patient has 3 mg tablets of [...] on 2019-09-26 CNPN Telephone (FAMPWS) Normal 09-26-2019 [facility] LOVELY DEVI ([id number]) 1945 M [place] Date Time Provider Department ([id number]) 09/26/19 MORGAN VALDEZ III During your visit today, we recorded the following informati on about you: Cindi Eastman LPN 09/26/2019 11:56 AM Signed Melany with [facility] just left patient from a wound ch juan on his leg. He was complaining of blood in his underwear and painful urinatio n. Gathered urine samples. Looked good clear to pale. Call with verbal order t o PH: [phone]. She gathered enough urine to do the [...] LPN 09/27/2019 8:14 AM Signed Melany with [facility] is aski ng with verbage await urine results if this means provider is ok with uryinalysis. Call Melany with provider message. Jerilyn Valdez III MD 09/27/2019 8:36 AM Signed Yes?please obtain urinalysis FEDERICO Alatorre MD, CMA, [place] 09/27/2019 10:04 AM Signed Melany has been notified. Linwood Carpenter CMA Allergies As of Date: 09/26/2019 Noted Allergy Reaction MORPHINE 02/28/2005 ROCEPHIN (CEFTRIAXONE SODIUM) 06/20/2014 14 - Other: See Com ments Comments: Hot flashes; redness to skin Date Reviewed: 09/16/2019 Reviewed by: Deniz Garsia - Fully Assessed Reason for Visit: [facility] [Other] Prescriptions as of 09/26/2019 [...] 09/27/19 progress on 2019-08 PROGRESS HNO ID: [id number] Normal 09-16-2019 [facility] Author: Deniz Garsia [place] ([id number]) Service: ? Author Type: Nurse Practitioner Type: Progress Notes Filed: 09/16/2019 2:19 PM Note Text: Chief Complaint Patient presents with: Hospital Follow Up HPI Lovely Devi is a 73 year old male who presents he re today for Hospital Discharge Follow up. ADM [facility] 09/04-09/08/2019 for CHF[address] Dr. [...] placed on Trazodone 50 mg at hs. [place] leg sx wer e related to CHF [...] after breakfast. He rep orts 7 day pWM=781, 14 day eTF=932, and 90 day bGX=462. He relates he d oes not feel [...] of vessel, na tive or graft s/p AK in 1985 - Diverticulosis of colon (without [...] Laterality Date - COLONOSCOP W/ OR W/O [facility] SPEC 12/21/2017 Dr. Anthony-repeat 3 years-11/2020 - COLONOSCOPY W/BX 02/21/09 - EGD W/O OR W/BRUSH/WASH EGD - EGD W/O OR W/BRUSH/WASH 02/16/08 EGD inpt [facility] H-pylori negative - EGD W/O OR W/BRUSH/WASH 05/24/15 EGD - EGD W/O OR W/BRUSH/WASH 12/21/2017 Dr. Anthony-repeat 3 years-11/2020 - HEART CATHETERIZATION 12/15/2014 [facility] - see scanned documents - HEART [...] G47.33 327.23 - fax compliance download to [phone] - flash glucose sensor (FREESTYLE ANITRA 14 [...] mouth once daily. - blood sugar diagnostic ([facility] BLOOD GLUCOSE SYSTEM) test strip Use as [...] slow healing of venous ulceration. Following with [facility]. 5. Stasis dermatitis with venous ulcer of [...] complication, with long-term current use of insulin ([facility]) - ICD9: 250.00, V58.6 7, ICD10: E11.9, [...] TRAZODONE 50 MG TABLET Deniz Garsia, MSN WOOD HEEL FLAP INSERTER.CHIEF METEOROLOGIST cnov on 2019-09-16 CNOV Office Visit (FAMPWS) Normal 09-16-19 [facility] LOVELY DEVI ([id number]) 1945 [facility] Date Time Provider Department ([id number]) 09/16/19 9:40 AM DENIZ GARSIA During your visit today, we recorded the following informati on about you: Temperature Pulse Respiration Blood pressure 97.9 degrees 68/minute 20/minute 122/70 Deniz Garsia, MSN WOOD HEEL FLAP INSERTER.CHIEF METEOROLOGIST 09/16/2019 2:19 PM Signed Chief Complaint Patient presents with: Hospital Follow Up HPI Lovely Devi is a 73 year old male who presents he re today for Hospital Discharge Follow up. ADM [facility] 09/04- 020 for CHF. Follows with [...] placed on Trazodone 50 mg at hs. [place] le g sx were related to CHF [...] 82 after breakfast. He reports 7 day aMF=377, 14 day cHG=898, and 90 day lEL=780. He relates he does not feel the [...] of vessel, na tive or graft s/p AK in 1985 - Diverticulosis of colon (without [...] disease, with long-term current use of insulin ([facility]) 06/15/2017 - Unspecified essential hypertension Previous Surgical History PAST SURGICAL HISTORY Procedure Laterality Date - COLONOSCOP W/ OR W/O [facility] SPEC 12/21/2017 Dr. Anthony-repeat 3 years-11/2020 - COLONOSCOPY W/BX 02/21/09 - EGD W/O OR W/BRUSH/WASH EGD - EGD W/O OR W/BRUSH/WASH 02/16/08 EGD inpt [facility] H-pylori negative - EGD W/O OR W/BRUSH/WASH 05/24/15 EGD - EGD W/O OR W/BRUSH/WASH 12/21/2017 Dr. Anthony-repeat 3 years-11/2020 - HEART CATHETERIZATION 12/15/2014 [facility] - see scanned documents - HEART [...] G47.33 327.23 - fax compliance download to [phone] - flash glucose sensor (FREESTYLE ANITRA 14 [...] mouth once daily. - blood sugar diagnostic ([facility] BLOOD GLUCOSE SYSTEM) test strip Use as [...] TOUCH ULTRASO FT LANCETS) lancets Use with Make Music TVuch Glucometer as directed - Aspirin 81 mg [...] and diastolic CHF (con gestive heart failure) ([facility]) - ICD9: 428.43, 428.0, ICD10: I50.43 (primary diagnosis) -Stable, - Follow up with Cardiology as scheduled. 2. Type 2 diabetes mellitus with st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, with long-term current use of insulin ([facility]) - ICD9: 250.40, 585.3, V58.67, ICD10: E11.22, [...] slow healing of venous ulceration. Following with [facility]. 5. Stasis dermatitis with venous ulcer of lower extremity du e to chronic peripheral venous hypertension ([facility]) - ICD9: 459.31, I CD10: I87.339, L97.909 [...] n, with long-term current use of insulin ([facility]) - ICD9: 250.00, V58.67, ICD10: E11.9, Z79.4 [...] TRAZODONE 50 MG TABLET Deniz Garsia, MSN WOOD HEEL FLAP INSERTER.CHIEF METEOROLOGIST Referring Provider: SELF [[id number]] Allergies As of Date: 09/16/2019 Noted Allergy Reaction MORPHINE 02/28/2005 ROCEPHIN (CEFTRIAXONE SODIUM) 06/20/2014 14 - Other: See Com ments Comments: Hot flashes; redness to skin Date Reviewed: 09/16/2019 Reviewed by: Deniz Garsia - Fully Assessed Reason for Visit: Hospital Follow Up [177] Primary Visit Diagnosis: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) ([facility]) [I50.43] Other Visit Diagnoses:Type 2 diabetes mellitus with st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, with long-term current use of insulin ([facility]) [E11.22, N18.3, Z79.4] Essential hypertension [I10] Cellulitis of right lower extremity [L03.115] Stasis 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 ([facility]) [I87.339, L97.909] Closed nondisplaced fracture of fifth metatarsal bone of left foot with routine healing, subsequent encounter [S92.508D] Controlled type 2 diabetes mellitus without complication, with long-term current use of insulin ([facility]) [E11.9, Z79.4] Vitamin D 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] Sleep difficulties [G47.9] Order(s):insulin lispro (HUMALOG U-100 INSULIN) 100 unit/mL [id number] units with breakfast, 20 units at lunch, [...] TO AMBULATORY CLINIC PHARMACY [[id number]] Order #: [id number]: 1 VITAMIN D 25 HYDROXY [SQVITD] Order #: [id number] FUTURE Cholecalciferol, Vitamin D3, 50 mcg (2,000 [...] E-Cancel Cosign accepted by MORGAN VALDEZ III, MD[[id number]] on 06/25/19 17 6:04 PM Melatonin 5 [...] Disposition History Recorded Encounter Status:Closed by DENIZ GASRIA CNP on 09/16/19 cnpn on 2019-09-14 CNPN Telephone (FAMPWS) Normal 09-14-2019 [facility] LOVELY DEVI ([id number]) 1945 M [place] Date Time Provider Department ([id number]) 09/14/19 [facility] During your visit today, we recorded the following informati on about you: Kaitlin King LPN 09/14/2019 4:10 PM Signed Manda from [facility] Home health calling did visit one time caroli christy delgado for OT patient doing well educated suing bo, famil y will follow through and get one for his use. Deniz Garsia, MSN WOOD HEEL FLAP INSERTER.CHIEF METEOROLOGIST 09/15/2019 7:26 AM Signed Noted. Deniz Garsia, MSN WOOD HEEL FLAP INSERTER.CHIEF METEOROLOGIST Allergies As of Date: 09/14/2019 Noted Allergy Reaction MORPHINE 02/28/2005 ROCEPHIN (CEFTRIAXONE SODIUM) 06/20/2014 14 - Other: See Com ments Comments: Hot flashes; redness to skin Date Reviewed: 04/28/2019 Reviewed by: Linwood ([facility]) JAZZY Carpenter - Fully Assessed Reason for [...] mouth once ajay * LANCETS Use with Make Music TVuch Glucometer * ASPIRIN 81 MG TABLET Take [...] 09/15/19 progress on 2019-08 PROGRESS HNO ID: [id number] Normal 09-12-2019 [facility] Author: Jeffy Fontenot [facility] ([id number] Service: ? Author Type: Registered Nurse Type: Progress Notes Filed: 09/12/2019 3:17 PM Note Text: HIGH RISK CHRONIC DISEASE MONITORING Provider Action/FYI: Spk with Pt who noted was Admitted to [facility] 09/04-09/08/19 for Dx : CHF Pt has a scheduled f/u with Cardiology Dr. Perry 10/07/19. Pt has Appt 09/16/19 with Maryellen Garsia CNP Pt has active My Chart and is interested in Community Health Agent Contact made with patient: Yes Patient identified by name and . Discussed care with patient Hi my name is Corie Bardales, DRAGAN and I am calling from [facility] on behalf of your [...] like to speak with a social work steaming machine operator to help give you support for any of these needs? No It can be normal to feel anxious or down during a time like this. Would you like to talk to a mental health professional about how y ou have been feeling? No ACTION TAKEN: No action taken BOTTLE WASHER: Patient MyChart status is: Active account Thank [...] dipti l be sent to you via [employer] once a week for the next few weeks to months . [employer] Kitchen[employer] is the best way for us to [...] questionnaire will come to you through your [employer] acco unt and will replace the need for us to call you each week. May I sign yo u up for this? Yes Great! I've set you up to receive the weekly questionnaire. In the meantime, if you have concerns in between our calls, please call your PCP's office right away. Thank you. ACTION TAKEN: Signed patient up for weekly Community Health Agent questionnaire - Entered next patient outreach date [...] CNPTOUTREACH Patient Outreach (FAMPWS) Normal 0 09-12-2019 [place] [facility] LOVELY DEVI ([id number]) 1945 [facility] Date Time Provider Department ([id number]) 09/12/19 JEFFY FONTENOT (RN) FAMPWS During your visit today, we recorded the following informati on about you: Corie Bardales RN 09/12/2019 3:17 PM Signed HIGH RISK CHRONIC DISEASE MONITORING Provider Action/FYI: Spk with Pt who noted was Admitted to [facility] 09/04-09/08/19 for Dx : CHF Pt has a scheduled f/u with Cardiology Dr. Perry 10/07/19. Pt has Appt 09/16/19 with Maryellen Garsia CNP Pt has active My Chart and is interested in Community Health Agent Contact made with patient: Yes Patient identified by name and . Discussed care with patient Hi my name is Corie Bardales RN and I am calling from the [facility] on behalf of your PCP, [...] like to speak with a social work steaming machine operator to help give you support for any of these needs? No It can be normal to feel anxious or down during a time lik e this. Would you like to talk to a mental health professional abo ut how you have been feeling? No ACTION TAKEN: No action taken BOTTLE WASHER: Patient Rodneyhart status is: Active account Thank you for taking the time to talk with me to day. We want to work with you to ensure that we are keeping your medical conditions well-controlled and to keep you healthy and out of the doctor's office or [facility]. Our team would like to stay connected with you to make sure you are feeling well. I am inviting you to complete a short questionnaire th at will be sent to you via [employer] once a week for the next few weeks t o months. [employer] is the best way for us to [...] questionnaire will come to you through your [employer] account and will re place the need for us to call you each week. May I sign you up for this? Yes Great! I've set you up to receive the weekly questionn shemar. In the meantime, if you have concerns in between our call s, please call your PCP's office right away. Thank you. ACTION TAKEN: Signed patient up for weekly Community Health Agent questionnaire - Entered next patient outreach date [...] skin Date Reviewed: 04/28/2019 Reviewed by: Linwood ([facility]) JAZZY Carpenter - Fully Assessed Reason for [...] Encounter Status:Closed by CORIE BARDALES [facility]) Normal 09-09-2019 [place] [facility] LOVELY DEVI ([id number]) 1945 [facility] Date Time Provider Department ([id number]) 09/09/19 [facility] During your visit today, we recorded the following informati on about you: Tasha Chan RN 09/09/2019 1:04 PM [facility]igned [facility] rep oneal P[facility]: nursing will see patient 2 x's week for 9 weeks, for wound care, medication education, and dis ease process teaching. Reports his discharge instructions from hospital, have 2 meds on list, patient reports he hasn't taken in a long time: colestid 1 g bid, and tricor [address] Perry is his potato chip packaging machine operator. Morgan Valdez III MD 09/09/2019 5:58 PM Signed Noted Morgan Valdez III, , FAAFP Allergies As of Date: 09/09/2019 Noted Allergy Reaction MORPHINE 02/28/2005 ROCEPHIN (CEFTRIAXONE SODIUM) 06/20/2014 14 - Other: See Com ments Comments: Hot flashes; redness to skin Date Reviewed: 04/28/2019 Reviewed by: Linwood ([facility]) JAZZY Carpenter - Fully Assessed Reason for Visit: [facility] POC [Other] Prescriptions as of 09/09/2019 [...] mouth once ajay * LANCETS Use with Make Music TVuch Glucometer * ASPIRIN 81 MG TABLET Take [...] III, MD on 09/09/19 yoandy on 2019-09-08 [facility] Normal 09-08-2019 [facility] LOVELY DEVI ([id number]) 1945 [place] Date Time Provider Department ([id number]) 09/08/19 MORGAN VALDEZ III During your visit today, we recorded the following informati on about you: Cindi Eastman LPN 09/08/2019 2:43 PM Signed Melany with [facility] calling to let you know cammie rodriguez being d/c from [facility] today and needs to be followed with nursing, OT and PT. Asking i f you will follow and sign. Please advise Melany. Cindi Valdez III MD 09/08/2019 2:45 PM Signed yes--I will follow FEDERICO Alatorre MD, LPN 09/08/2019 4:42 PM Signed Melany advised of Dr Valdez's verbal orders. Sherill A Hamb el SOLAR SYSTEM DESIGNER Allergies As of Date: 09/08/2019 Noted Allergy Reaction MORPHINE 02/28/2005 ROCEPHIN (CEFTRIAXONE SODIUM) 06/20/2014 14 - Other: See Com ments Comments: Hot flashes; redness to skin Date Reviewed: 04/28/2019 Reviewed by: Linwood ([facility]) JAZZY Carpenter - Fully Assessed Reason for Visit: [facility] orders [Other] Prescriptions as of [...] heart fail*12/17/2018 Encounter Status:Closed by EUFEMIA MAURICE SOLAR SYSTEM DESIGNER on 09/08/19 cnpn on 2019-09-07 [facility] Normal 09-07-2019 [facility] [facility] LOVELY DEVI ([id number]) 1945 [place] Date Time Provider Department ([id number]) 09/07/19 BLOSSOM (PHARMACIST)BRIJESH During your visit today, [...] said he was going to go to [facility]. Dipti marks monitor for an update on the patient and updated INR. Joleen Cerrato, PharmD ANSHUL SEBASTIAN 09/14/2019 9:32 AM Signed [facility] Ambulatory Pharmacy Anticoagulation Clinic Referring provider: No ref. provider found Lovely Devi is a 73 year old year old male patient being evaluated today for anticoagulation Telemanagement visit. Patient is currently on the following anticoagulant Warfarin Labs PT INR (no units) Date Value 11/26/2018 Test sent to [facility]. 10/16/2017 1.8 01/16/2017 Test sent to [facility]. INR (POCT) (no units) Date Value [...] therapeutic ? Pt was recently discharged from [facility]. According to Epic note - he [...] Pharmacy Anticoagulation Clinic Pharmacy Anticoagulation Clinic Pager: [phone] Description Patient has 3 mg tablets of warfarin. Patient takes in the m orning. . Chencho Helms ([employer] Consultant) 09/14/2019 11:06 AM Signed Patient returned call and is requesting pharmaci st to contact patient after 2 pm today as he is currently not home. Patient can be reached at [phone]. Chencho Helms, Ground Operations Superintendent (mission planner) Pharmacy Anticoagulation Clinic JOLEEN CERRATO, PHARMACIST 09/14/2019 [...] skin Date Reviewed: 04/28/2019 Reviewed by: Linwood ([facility]) JAZZY Carpenter - Fully Assessed Reason for [...] on progress on 2019-08 PROGRESS HNO ID: [id number] Normal 09-05-2019 [facility] Author: Staci Almazan MD [place] ([id number]) Service: ? Author Type: Physician Type: Progress Notes Filed: 09/05/2019 3:49 PM Note Text: Virtualist Community Monitoring Note: Adult seen for Monitoring Track: High Risk Chronic Disease Management Contacted by phone, ExpertFlyer, Google LaREDChina.como, SkMedPlexuse, Zoom, Prognomix ity, Express Care Online, other: phone I [...] in EMR. PMH (I reviewed epic, from [facility]) includes NSTEMI, ASHD, isch emic [...] called the [facility] ED [phone] and spoke to charge nurse Cristina and [...] Agudelo wilfredo DATE: September 05, 2019 PAGER/CONTACT: [phone] PROGRESS HNO ID: [id number] Normal 09-05-2019 [facility] Author: Jeffy Fontenot (Dragan) [place] ([id number]) Service: ? Author Type: Registered Nurse Type: [...] Bardales RN and I am calling from [facility] on behalf of your [...] - routed to RX CLINICAL TRIAGE pool #[id number] and noted symptoms in the FYI box - Informed patient that you re commend further assessment from a provider to review symptoms. End O [facility] / Phone Call Outreach Ended Corie Bardales RN September 05, 2019 1:54 PM PROGRESS HNO ID: [id number] Normal 09-05-2019 [facility] Author: Faye Lara (Pharmacist) [place] ([id number]) Service: ? Author Type: Pharmacist Type: Progress Notes Filed: 09/05/2019 2:23 PM Note Text: Called patient to clarify. He reports significant SOB, barel y can make it to the bathroom. This is new for him. Will page elijahist stella fraser and route high priority to address today. Faye Lara, PharmD, BCACP Primary Care Pharmacist [facility] Patient Outreach (FAMPWS) Normal 0 09-05-2019 [place] [facility] LOVELY DEVI ([id number]) 1945 [facility] Date Time Provider Department ([id number]) 09/05/19 JEFFY FONTENOT (RN) FAMPWS During your [...] and I am calling from the [facility] on behalf of your PCP, [...] - routed to RX CLINICAL TRIAGE pool #[id number] and noted symptoms in the FYI box [...] skin Date Reviewed: 04/28/2019 Reviewed by: Linwood ([facility]) JAZZY Carpenter - Fully Assessed Reason for [...] mouth once ajay * LANCETS Use with Make Music TVuch Glucometer * ASPIRIN 81 MG TABLET Take [...] 08-31-2019 Jose chapin [facility] LOVELY DEVI ([id number]) 1945 [place] Date Time Provider Department ([id number]) 08/31/19 MORGAN VALDEZ III During your visit [...] skin Date Reviewed: 04/28/2019 Reviewed by: Linwood ([facility]) JAZZY Carpenter - Fully Assessed Reason for [...] Normal 08-27-2019 [facility] LOVELY DEVI ([id number]) 1945 M [place] Date Time Provider Department ([id number]) 08/27/19 DENIZ GARSIA During your visit today, [...] skin Date Reviewed: 04/28/2019 Reviewed by: Linwood ([facility]) JAZZY Carpenter - Fully Assessed Reason for [...] mouth once ajay * LANCETS Use with Make Music TVuch Glucometer * ASPIRIN 81 MG TABLET Take [...] on 2019-08-26 CNPN Telephone (NRSLME) Normal 08-26-2019 [place] [facility] MERCEDESLOVELY Quincy ([id number]) 1945 [facility] Date Time Provider Department ([id number]) 08/26/19 ARIANA BERNAL ([facility]) NRSE During your visit today, we [...] skin Date Reviewed: 04/28/2019 Reviewed by: Linwood ([facility]) JAZZY Carpenter - Fully Assessed Reason for [...] on 2019-08-24 ELBAN Telephone (VAHE) Normal 08-24-2019 [place] [facility] LOVELY DEVI ([id number]) 1945 M [place] Date Time Provider Department () 08/24/19 ANDRE (PHARMACIST)LEE During your visit today, we recorded the following informati on about you: Allergies As of Date: 08/24/2019 Noted Allergy Reaction MORPHINE 02/28/2005 ROCEPHIN (CEFTRIAXONE SODIUM) 06/20/2014 14 - Other: See Com ments Comments: Hot flashes; redness to skin Date Reviewed: 04/28/2019 Reviewed by: Linwood ([facility]) JAZZY Carpenter - Fully Assessed Reason for [...] on progress on 2019-07 PROGRESS HNO ID: [id number] Normal 08-23-2019 [facility] Author: Linwood Fowler) JAZZY Carpenter [place] ([id number]) Service: ? Author Type: Resistance Brazer Type: Progress Notes Filed: 08/23/2019 4:03 PM Note Text: Patient notified, voiced understanding. Linwood Carpenter CMA PROGRESS HNO ID: [id number] Normal 08-23-2019 [facility] Author: Morgan Valdez III [place] ([id number]) Service: ? Author Type: Physician Type: Progress Notes Filed: 08/23/2019 3:19 PM Note Text: Staff, Please notify patient that the Covid 19 test obtained on 07/28 12/17 resulted in no detection of the virus. It was negative. He should report persistent or worsening symptoms of Covid 1 9. Morgan Valdez III, MD, FAAFP Morgan Valdez III, MD, FAA PROGRESS HNO ID: [id number] Normal 08-23-2019 [facility] Author: Linwood Fowler) JAZZY Carpenter [place] ([id number]) Service: ? Author Type: Resistance Brazer Type: Progress Notes Filed: 08/23/2019 3:14 PM Note Text: Printed, placed on PCP's desk. Linwood Carpenter CMA PROGRESS HNO ID: [id number] Normal 08-23-2019 [facility] Author: Morgan Valdez III [place] ([id number]) Service: ? Author Type: Physician Type: Progress Notes Filed: 08/23/2019 12:34 PM Note Text: Staff, Please check [facility] to obtain Covid 19 results Morgan Valdez III MD PROGRESS HNO ID: [id number] Normal 08-23-2019 [facility] Author: Cara Zhang LPN [place] ([id number]) Service: ? Author Type: ? Type: Progress [...] and I am calling from the [facility] on behalf of your PCP, [...] - routed to RX CLINICAL TRIAGE pool #[id number] and noted symptoms in the FYI box - Informed patient that you re commend further assessment from a provider to review symptoms. End O atif / Phone Call cnptoutreach on CNPTOUTREACH Patient Outreach (AMBCMG) Normal 0 08-23-2019 [place] [facility] LOVELY DEVI ([id number]) 1945 [facility] Date Time Provider Department ([id number]) 08/23/19 MORGAN VALDEZ III During your visit [...] and I am calling from the [facility] on behalf of your PCP, [...] - routed to RX CLINICAL TRIAGE pool #[id number] and noted symptoms in the FYI box - Informed patient that you recommend further assessment from a provider to review symptoms. End Outreach / Phone Call Morgan Valdez III MD 08/23/2019 12:34 PM Signed Staff, Please check [facility] to obtain Covid 19 results FEDERICO [...] 08/23/19 progress on 2019-07 PROGRESS HNO ID: [id number] Normal 08-12-2019 [facility] Author: John Suazo RN [place] ([id number]) Service: ? Author Type: ? Type: Progress Notes Filed: 08/12/2019 11:57 AM Note Text: HIGH RISK CHRONIC DISEASE MONITORING Provider Action/FYI: Contact made with patient: Yes Patient identified by name and . Discussed care with patient Hi my name is John Suazo RN and I am calling from the [facility] on behalf of your [...] like to speak with a social work steaming machine operator to help give you support for [...] out of the doctor's office or [facility]. Our team would like to [...] CNPTOUTREACH Patient Outreach (FAMPWS) Normal 0 08-12-2019 [place] [facility] LOVELY DEVI ([id number]) 1945 M [place] Date Time Provider Department ([id number]) 08/12/19 JOHN SUAZO (RN) FAMPWS During your visit today, we recorded the following informati on about you: John Suazo RN 08/12/2019 11:57 AM Signed HIGH RISK CHRONIC DISEASE MONITORING Provider Action/FYI: Contact made with patient: Yes Patient identified by name and . Discussed care with patient Hi my name is John Suazo RN and I am calling from the [facility] on behalf of your [...] like to speak with a social work steaming machine operator to help give you support for any of these needs? No It can be normal to feel anxious or down during a time lik e this. Would you like to talk to a mental health professional abo mi how you have been feeling? No ACTION TAKEN: No action taken Thank you for taking the time to talk with me to day. We want to work with you to ensure that we are keeping your medical conditions well-controlled and to keep you healthy and out of the doctor's office or [facility]. Our team would like to [...] skin Date Reviewed: 04/28/2019 Reviewed by: Linwood ([facility]) JAZZY Carpenter - Fully Assessed Reason for [...] on 2019-08-11 CNPN Telephone (NEMOWS) Normal 08-11-2019 [place] [facility] LOVELY DEVI ([id number]) 1945 M [place] Date Time Provider Department ([id number]) 08/11/19 ARIANA BERNAL (ELBA) NEMOWS During your [...] skin Date Reviewed: 04/28/2019 Reviewed by: Linwood ([facility]) JAZZY Carpenter - Fully Assessed Reason for [...] DONNA JOSE LPN on 08/11/19 CNPN Telephone (HyperWeek) Normal 08-11-2019 [place] [facility] LOVELY DEVI ([id number]) 1945 M [place] Date Time Provider Department ([id number]) 08/11/19 ANUP (PHARMACIST)FAHEEM During your visit today, we recorded the following informati on about you: Anshul Almeida 08/11/2019 4:20 PM Addendum Error Julian Espinosa, PharmD Allergies As of Date: 08/11/2019 Noted Allergy Reaction MORPHINE 02/28/2005 ROCEPHIN (CEFTRIAXONE SODIUM) 06/20/2014 14 - Other: See Com ments Comments: Hot flashes; redness to skin Date Reviewed: 04/28/2019 Reviewed by: Linwood ([facility]) JAZZY Carpenter - Fully Assessed Reason for [...] on 2019-08-10 CNPN Telephone (INTMMN) Normal 08-10-2019 [place] [facility] LOVELY DEVI ([id number]) 1945 M [place] Date Time Provider Department ([id number]) 08/10/19 ANGIE (PHARMACIST)ALEXIA During your visit today, [...] mouth once ajay * LANCETS Use with Make Music TVuch Glucometer * ASPIRIN 81 MG TABLET Take [...] on progress on 2019-07 PROGRESS HNO ID: [id number] Normal 08-05-2019 [facility] Author: John Suazo RN [place] ([id number]) Service: ? Author Type: ? Type: Progress Notes Filed: 08/05/2019 3:25 PM Note Text: HIGH RISK CHRONIC DISEASE MONITORING Provider Action/FYI: Contact made with patient: Yes Patient identified by name and . Discussed care with patient Hi my name is John Suazo RN and I am calling from the [facility] on behalf of your [...] like to speak with a social work steaming machine operator to help give you support for [...] out of the doctor's office or [facility]. Our team would like to [...] Outreach section. cnptoutreach on CNPTOUTREACH [facility] Normal 0 08-05-2019 [place] [facility] LOVELY DEVI ([id number]) 1945 M [place] Date Time Provider Department ([id number]) 08/05/19 JOHN SUAZO (RN) RENEEWS During your visit today, we recorded the following informati on about you: John Suazo RN 08/05/2019 3:25 PM Signed HIGH RISK CHRONIC DISEASE MONITORING Provider Action/FYI: Contact made with patient: Yes Patient identified by name and . Discussed care with patient Hi my name is John Suazo RN and I am calling from the [facility] on behalf of your [...] like to speak with a social work steaming machine operator to help give you support for [...] and out of the doctor's office or [facility]. Our team would like to stay connected [...] skin Date Reviewed: 04/28/2019 Reviewed by: Linwood ([facility]) JAZZY Carpenter - Fully Assessed Reason for [...] on 08/05/19 cnpn on 2019-08-02 CNPN Telephone ([facility]) Normal 08-02-2019 [place] [facility] LOVELY DEVI ([id number]) [address] [facility] Time Provider Department ([id number]) 08/02/19 MORGAN VALDEZ III During your visit [...] Dr. Merritt wants h im only on rpfn-jgd-lrbfkyq pain medication, then t he patient should [...] 08/02/19 progress on 2019-07 PROGRESS HNO ID: [id number] Normal 07-29-2019 [facility] Author: Vera (Network Navigator) Nakul [place] ([id number]) Service: ? Author Type: Resistance Brazer Type: Progress Notes Filed: 07/29/2019 3:10 PM Note Text: HIGH RISK CHRONIC DISEASE MONITORING Provider Action/FYI: Dr. Valdez- pt needs refill of Lasix 40 mg. Please send to [facility] in [place]. Contact made with patient: Yes Patient identified by name and . Discussed care with patient Hi my name is Vera Mota, NETWORK NAVIGATOR and I am callin g from the [facility] on behalf of your PCP, [...] like to speak with a social work steaming machine operator to help give you support for [...] CNPTOUTREACH Patient Outreach (FAMPWS) Normal 0 07-29-2019 [place] [facility] LOVELY DEVI ([id number]) 1945 M [place] Date Time Provider Department ([id number]) 07/29/19 VERA MOTA (NETWORK NAVIGATOR)FAMPWS During your visit today, we recorded the following informati on about you: RIKY High NAVIGATOR 07/29/2019 3:10 PM Signed HIGH RISK CHRONIC DISEASE MONITORING Provider Action/FYI: Dr. Valdez- pt needs refill of Lasix 40 mg. Please send to [facility] in [place]. Contact made with patient: Yes Patient identified by name and . Discussed care with patient Hi my name is Vera DuncanRIKY mathew NAVIGATOR and I am callin g from the [facility] on behalf of your PCP, [...] like to speak with a social work steaming machine operator to help give you support for [...] skin Date Reviewed: 04/28/2019 Reviewed by: Linwood ([facility]) JAZZY Carpenter - Fully Assessed Reason for [...] on 07/29/19 elban on 2019-07-27 ELBAN Telephone ([facility]) Normal 07-27-2019 [facility] LOVELY DEVI ([id number]) 1945 M [place] Date Time Provider Department () 07/27/19 BLOSSOM (PHARMACIST)BRIJESH During your visit today, we recorded the following informati on about you: JOLEEN CERRATO PHARMACIST 07/27/2019 11:08 AM Signed [facility] message sent for INR at [facility]. Joleen Cerrato PharmD Allergies As of Date: 07/27/2019 Noted Allergy Reaction MORPHINE 02/28/2005 ROCEPHIN (CEFTRIAXONE SODIUM) 06/20/2014 14 - Other: See Com ments Comments: Hot flashes; redness to skin Date Reviewed: 04/28/2019 Reviewed by: Linwood ([facility]) JAZZY Carpenter - Fully Assessed Reason for [...] on progress on 2019-06 PROGRESS HNO ID: [id number] Normal 07-21-2019 [facility] Author: Becky Garibay [facility] ([id number]) Service: ? Author Type: ? Type: Progress Notes Filed: 07/21/2019 3:21 PM Note Text: HIGH RISK CHRONIC DISEASE MONITORING Provider Action/FYI: Patient states no concerns Contact made with patient: Yes Patient identified by name and . Discussed care with patient Hi my name is Becky Garibay [facility] and I am calling from [facility] on behalf of your [...] like to speak with a social work steaming machine operator to help give you support for [...] [facility] Our team would like to [...] CNPTOUTREACH Patient Outreach (FAMPWS) Normal 0 07-21-2019 [place] [facility] LOVELY DEVI ([id number]) 1945 [facility] Date Time Provider Department ([id number]) 07/21/19 MORGAN VALDEZ III During your visit today, we recorded the following informati on about you: Becky Garibay Pss 07/21/2019 3:21 PM Signed HIGH RISK CHRONIC DISEASE MONITORING Provider Action/FYI: Patient states no concerns Contact made with patient: Yes Patient identified by name and . Discussed care with patient Hi my name is Becky Garibay Pss and I am calling from the [facility] on behalf of your PCP, [...] like to speak with a social work steaming machine operator to help give you support for [...] and out of the doctor's office or [facility]. Our team would like to [...] skin Date Reviewed: 04/28/2019 Reviewed by: Linwood ([facility]) JAZZY Carpenter - Fully Assessed Reason for [...] mouth once ajay * LANCETS Use with OneTaomeeuch Glucometer * ASPIRIN 81 MG TABLET Take [...] OBSOLETE Refill (FAMPWS) Normal 07-18-2019 [facility] LOVELY DEVI ([id number]) 1945 [facility] Time Provider Department ([id number]) 07/18/19 MORGAN VALDEZ III FAMPWS During your [...] Please advise. Thank you. Cindi Garsia, MSN WOOD HEEL FLAP INSERTER.CHIEF METEOROLOGIST 07/19/2019 8:10 AM Signed The following approved medic ation requests have been transmitted electronically. Signed Prescriptions Disp Refills Insulin Syringe-Needle U-100 (BD ULTRAFINE INSULIN) 1 mL 31 gauge x 5/16 450 Each 3 Si Each five times daily. ZBIGNIEW: No Authorizing Provider: DENIZ GARSIA, MSN WOOD HEEL FLAP INSERTER.CHIEF METEOROLOGIST Allergies As of Date: 07/18/2019 Noted Allergy Reaction MORPHINE 02/28/2005 ROCEPHIN (CEFTRIAXONE SODIUM) 06/20/2014 14 - Other: See Com ments Comments: Hot flashes; redness to skin Date Reviewed: 04/28/2019 Reviewed by: Linwood ([facility]) JAZZY Carpenter - Fully Assessed Reason for [...] on file. Encounter Status:Closed by DENIZ GARSIA CHIEF METEOROLOGIST on 07/19/19 OBSOLETE Refill (FAMPWS) Normal 07-18-2019 [facility] LOVELY DEVI ([id number]) 1945 [facility] Date Time Provider Department ([id number]) 07/18/19 DENIZ GARSIAPWS During your visit today, [...] skin Date Reviewed: 04/28/2019 Reviewed by: Linwood ([facility]) JAZZY Carpenter - Fully Assessed Reason for [...] mouth once ajay * LANCETS Use with Make Music TVuch Glucometer * ASPIRIN 81 MG TABLET Take [...] on 07/19/19 cnpn on 2019-07-13 CNPN Telephone ([facility]) Normal 07-13-2019 [place] [facility] LOVELY DEVI ([id number]) 1945 M [place] Date Time Provider Department ([id number]) 07/13/19 BLOSSOM (PHARMACIST)BRIJESH During your visit today, [...] skin Date Reviewed: 04/28/2019 Reviewed by: Lin[place] ([facility]) JAZZY Carpenter - Fully Assessed Reason for [...] mouth once ajay * LANCETS Use with Make Music TVuch Glucometer * ASPIRIN 81 MG TABLET Take [...] on progress on 2019-06 PROGRESS HNO ID: [id number] Normal 06-30-2019 [facility] Author: Deniz Amado ([id number]) Service: ? Author Type: Nurse Practitioner Type: Progress Notes Filed: 07/01/2019 11:35 AM Note Text: Noted. Deniz Garsia, MSN WOOD HEEL FLAP INSERTER.CHIEF METEOROLOGIST progress on 2019-06 PROGRESS HNO ID: [id number] Normal 06-29-2019 [place] Author: Jeffy Fontenot (Rn) Clinic Service: ? [place] Author Type: Registered Nurse ([id number]) Type: Progress Notes Filed: 07/01/2019 11:35 AM [...] concern s Pt reports will f/u with [facility] Cardiology is 6 mths ( Please s ee #6 below: his recent ICD evaluation showed 1 nonsustained VT episode) [facility] 05/30/19 Cardiology Appt with Francis Kwok NP [facility] 06/08/19 ICD Pacemaker Interrogation completed 05/30/19 OV Francis Kwok NP / [facility] Addendum Excerpt noted: Assessment AND Plan 1. 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 Corie Bardales RN June 29, 2019 12:10 PM Corie Bardales RN June 29, 2019 6:57 PM PROGRESS HNO ID: [id number] Normal 06-29-2019 [place] Author: Jeffy Fontenot (Rn) Clinic Service: ? [place] Author Type: Registered Nurse ([id number]) Type: Progress Notes Filed: 07/01/2019 11:35 AM [...] SAMREEN Patient Outreach (FAMPWS) Normal 0 06-29-2019 [place] [facility] LOVELY DEVI ([id number]) 1945 [facility] Date Time Provider Department ([id number]) 06/29/19 JEFFY FONTENOT (RN) FAMPWS During your [...] concern s Pt reports will f/u with [facility] Cardiology is 6 mths ( Pl ease see #6 below: his recent ICD evaluation showed 1 nonsustained VT episode) - [facility] 05/30/19 Cardiology Appt with Francis Kwok NP [facility] 06/08/19 ICD Pacemaker Interrogation completed 05/30/19 OV Francis Kwok NP / [facility] Addendum Excerpt noted: Assessment AND Plan 1. Atherosclerotic heart disease of [place] coronary artery with other forms of angina pectoris I25.118 ZZE-Ycjnm-Fwm Cx; PCI-Cutting Balloon Angioplasty of ISR-ost ium [...] History of coronary artery stent placement Z95.5 EFC-Lmlzc-BM8; PCI-Cutting Balloon Angioplasty of ISR-ostium of prox OM1 11/22/02; PCI-stent to proximal OM1 01/2008; PCI- KIM-HTJ-Egwp OM1 w/ 2.5 x 12 mm Promus [...] Orders Orders: 12 Lead EKG performed by [facility] Today 6. Nonsustained ventricular tachycardia I47.2 Plan [...] 2 Weeks (Funmilayo- Remote check) 6 Months (FAMILY LIFE COUNSELOR) Patient identified by name and date . Corie Bardales RN June 29, 2019 12:10 PM Corie Bardales RN June 29, 2019 6:57 PM LEATHA Kebede WOOD HEEL FLAP INSERTER.ELBA 07/01/2019 11:35 AM Signed Noted. 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 Time Provider Department ([id number]) 06/29/19 BLOSSOM (PHARMACIST)SHARIF During your visit today, we recorded the following informati on about you: ANSHUL SEBASTIAN 06/29/2019 9:31 AM Signed [facility] Ambulatory Pharmacy Anticoagulation Clinic Referring provider: No ref. provider found Lovely Devi is a 73 year old year old male patient being evaluated today for anticoagulation Telemanagement visit. Patient is currently on the following anticoagulant Warfarin Labs PT INR (no units) Date Value 11/26/2018 Test sent to [facility]. 10/16/2017 1.8 01/16/2017 Test sent to [facility]. INR (POCT) (no units) Date Value [...] Pharmacy Anticoagulation Clinic Pharmacy Anticoagulation Clinic Pager: [phone] Description Patient has 3 mg tablets of warfarin. Patient takes in the m orning. . Allergies As of Date: 06/29/2019 Noted Allergy Reaction MORPHINE 02/28/2005 ROCEPHIN (CEFTRIAXONE SODIUM) 06/20/2014 14 - Other: See Com ments Comments: Hot flashes; redness to skin Date Reviewed: 04/28/2019 Reviewed by: [place] ([facility]) JAZZY Carpenter - Fully Assessed Reason for [...] on 2019-06-27 CNPN Telephone (FAMPWS) Normal 06-27-2019 [place] [facility] LOVELY DEVI ([id number]) 1945 [facility] Date Time Provider Department ([id number]) 06/27/19 MORGAN VALDEZ III FAMPWS During your [...] skin Date Reviewed: 04/28/2019 Reviewed by: [place] ([facility] [facility]) JAZZY Carpenter - Fully Assessed Reason for [...] Normal 06-25-2019 [facility] LOVELY DEVI ([id number]) 1945 M [place] Date Time Provider Department ([id number]) 06/25/19 MORGAN VALDEZ III FAMPWS During your visit today, we recorded the following informati on about you: Allergies As of Date: 06/25/2019 Noted Allergy Reaction MORPHINE 02/28/2005 ROCEPHIN (CEFTRIAXONE SODIUM) 06/20/2014 14 - Other: See Com ments Comments: Hot flashes; redness to skin Date Reviewed: 04/28/2019 Reviewed by: Linwood ([facility]) JAZZY Carpenter - Fully Assessed Reason for [...] mouth once ajay * LANCETS Use with [employer] Glucometer * ASPIRIN 81 MG TABLET Take [...] on 06/27/19 cnpn on 2019-06-15 CNPN Telephone ([facility]) Normal 06-15-2019 [place] [facility] LOVELY DEVI ([id number]) [address] [facility] Time Provider Department ([id number]) 06/15/19 BLOSSOM (PHARMACIST)BRIJESH During your visit today, we recorded the following informati on about you: JOLEEN CERRATO, PHARMACIST 06/15/2019 10:12 AM Signed Tried pt twice but it kept ringing with no answer. Will attempt him later today. Joleen Cerrato, PharmD Pharmacy Antico[facility] Anshul Dailey 06/15/2019 3:15 PM Signed [facility] Ambulatory Pharmacy Anticoagulation [facility] Referring provider: No ref. provider found Lovely Devi is a 73 year old year old male patient being evaluated today for anticoagulation Telemanagement visit. Patient is currently on the following anticoagulant Warfarin Labs PT INR (no units) Date Value 11/26/2018 Test sent to [facility]. 10/16/2017 1.8 01/16/2017 Test sent to [facility]. INR (POCT) (no units) Date Value [...] Pharmacy Anticoagulation Clinic Pharmacy Anticoagulation Clinic Pager: [phone] Description Patient has 3 mg tablets of warfarin. Patient takes in the m orning. . Allergies As of Date: 06/15/2019 Noted Allergy Reaction MORPHINE 02/28/2005 ROCEPHIN (CEFTRIAXONE SODIUM) 06/20/2014 14 - Other: See Com ments Comments: Hot flashes; redness to skin Date Reviewed: 04/28/2019 Reviewed by: Linwood ([facility]) JAZZY Carpenter - Fully Assessed Reason for [...] mouth once ajay * LANCETS Use with [employer] Glucometer * ASPIRIN 81 MG TABLET Take [...] (PHARMACIST)LACEY on cnpn on 2019-05-25 CNPN Telephone ([facility]) Normal 05-25-2019 [place] [facility] LOVELY DEVI ([id number]) 1945 M [place] Date Time Provider Department ([id number]) 05/25/19 BLOSSOM (PHARMACIST)BRIJESH During your visit today, we recorded the following informati on about you: JOLEEN CERRATO PHARMACIST 05/25/2019 4:52 PM Signed Patient was due to test INR today will continue to monitor f or results. Joleen Cerrato PharmD Pharmacy Anticoagulation Clinic Tahira Moore Pharmacist 06/01/2019 9:01 AM Signed [facility] Ambulatory Pharmacy Anticoagulation Clinic Referring provider: No ref. provider found Lovely Devi is a 73 year old year old male patient being evaluated today for anticoagulation Telemanagement visit. Patient is currently on the following anticoagulant Warfarin Labs PT INR (no units) Date Value 11/26/2018 Test sent to [facility]. 10/16/2017 1.8 01/16/2017 Test sent to [facility]. INR (POCT) (no units) Date Value [...] was advised to call the PCC @ [phone] for any questions or concerns. Tahira Moore PharmD Clinical Pharmacist, Pharmacy Anticoagulation Clinic Pharmacy Anticoagulation Clinic Pager: [phone] Description Patient has 3 mg tablets of warfarin. Patient takes in the m orning. . Allergies As of Date: 05/25/2019 Noted Allergy Reaction MORPHINE 02/28/2005 ROCEPHIN (CEFTRIAXONE SODIUM) 06/20/2014 14 - Other: See Com ments Comments: Hot flashes; redness to skin Date Reviewed: 04/28/2019 Reviewed by: Linwood ([facility]) JAZZY Carpenter - Fully Assessed Reason for [...] on progress on 2019-03 PROGRESS HNO ID: [id number] Normal 04-28-2019 [facility] Author: Morgan Valdez III [place] ([id number]) Service: ? Author Type: Physician Type: Progress [...] G47.33 327.23 - fax compliance download to [phone] - flash glucose sensor (FREESTYLE ANITRA 14 [...] mouth once daily. - blood sugar diagnostic ([facility] BLOOD GLUCOSE SYSTEM) test strip Use as [...] of vessel, na tive or graft s/p AK in 1985 - Diverticulosis of colon (without [...] ventricular tachycardia (HCC) - Snoring - Stroke ([facility]) - Tinea of nail 01/13/2011 - Type [...] 2019-04-28 CNOV Office Visit (FAMPWS) Normal 04-28-19 [place] [facility] LOVELY DEVI ([id number]) 1945 M [place] Date Time Provider Department ([id number]) 04/28/19 10:20 AM MORGAN VALDEZ IIIWS During [...] G47.33 327.23 - fax compliance download to [phone] - flash glucose sensor (FREESTYLE ANITRA 14 [...] mouth once daily. - blood sugar diagnostic ([facility] BLOOD GLUCOSE SYSTEM) test strip Use as [...] TOUCH ULTRASO FT LANCETS) lancets Use with [employer] Glucometer as directed - Aspirin 81 mg [...] of vessel, na tive or graft s/p AK in 1985 - Diverticulosis of colon (without [...] III MD Referring Provider: MORGAN VALDEZ III [[id number]] Allergies As of Date: 04/28/2019 Noted Allergy Reaction MORPHINE 02/28/2005 ROCEPHIN (CEFTRIAXONE SODIUM) 06/20/2014 14 - Other: See Com ments Comments: Hot flashes; redness to skin Date Reviewed: 04/28/2019 [facility]ed [facility]: [facility] JAZZY Carpenter - Fully Assessed Reason for [...] Order(s):ALBUMIN/CREAT RATIO RND UR [SQUACR] Order #: [id number] FUTURE HGB A1C [SAIID3S] Order #: [id number] FUTURE LIPID PANEL BASIC [SQLIPB] Order #: [id number] FUTURE COMP METABOLIC PANEL [SQCMP] Order #: [id number] FUTURE Prescriptions as of 04/28/2019 Sig: FUROSEMIDE [...] 25 Hydroxy 28.0 31.0-80.0 ng/mL Low 0 [facility] ([id number]) Comment: Result Comment: Classificati on of 25 [place] Vitamin D status: Insufficiency/Moderate Defic iency: < or = 30 ng/mL Sufficiency/Optimal Levels: 31 to 80 ng/mL Toxicity: > 100 ng/mL Test performed by chemilumin escent immunoassay. Performed By: #### VITD, HBA 1C, CMP #### [facility] [address] [place], [place] [address] hemoglobin a1c on HbA1c (Bld) [Mass fraction] 6.8 4.3-5.6 % High [facility] (12393) Comment: Result Comment: [place] Dominique betes Association guidelines indicate that patients with HgbA1c in the range 5.7-6.4% are at increased risk for development of diabetes, and intervention by lifestyle modification may be beneficial. HgbA1c greater o r equal to 6.5% is considered diagnostic of diabetes. Performed By: #### VITD, HBA 1C, CMP ####[facility] [address] [place], [place] [address] HbA1c (Bld) [Mass fraction] 148 mg/dL Normal [facility] (53215) Comment: Result Comment: eAG: (Wilnera devin average glucose) is a calculated value from HgbA1c and is customer response representative of the average blood glucose level in the last 2-3 month period. Performed By: #### VITD, HBA 1C, CMP ####[place] [address] [place] [address] [phone] comp metabolic panel on 2019-04-21 Albumin [Mass/Vol] 4.5 3.9-4.9 g/dL Normal 04-21-2019 [facility] (12388) Comment: Performed By: #### VITD, HBA 1C, CMP ####[place] [address] [place] [address] ALP [Catalytic activity/Vol] 51 38-113 U/L Normal 0 04-21-2019 [facility] (30962) Comment: Performed By: #### VITD, HBA 1C, CMP ####[place] [address] [place] [address] [phone] ALT [Catalytic activity/Vol] 33 10-54 U/L Normal 0 04-21-2019 [facility] (09464) Comment: Performed By: #### VITD, HBA 1C, CMP ####[place] [address] [place] [address] Anion gap [Moles/Vol] 13 9-18 mmol/L Normal 04-21-19 [facility] (37387) Comment: Performed By: #### VITD, HBA 1C, CMP ####[place] [address] [place] [address] [phone] AST [Catalytic activity/Vol] 36 14-40 U/L Normal 0 04-21-2019 [facility] (50119) Comment: Performed By: #### VITD, HBA 1C, CMP ####[place] [address] [place] [address] [phone] Bilirubin [Mass/Vol] 0.6 0.2-1.3 mg/dL Normal 0 [facility] (60597) Comment: Performed By: #### VITD, HBA 1C, CMP ####[place] [address] [place] [address] [phone] Calcium [Mass/Vol] 9.3 8.5-10.2 mg/dL Normal 04-21-2019 [facility] (37345) Comment: Performed By: #### VITD, HBA 1C, CMP ####[place] [address] [place] [address] [phone] Chloride [Moles/Vol] 98 97-105 mmol/L Normal 0 [facility] (69691) Comment: Performed By: #### VITD, HBA 1C, CMP ####[place] [address] [place] [address] [phone] CO2 [Moles/Vol] 27 22-30 mmol/L Normal 04-21-2019 [facility] (20194) Comment: Performed By: #### VITD, HBA 1C, CMP ####[place] [address] [place] [address] [phone] Creatinine [Mass/Vol] 1.35 0.73-1.22 mg/dL High 04-21-19 20 [facility] (14570) Comment: Performed By: #### VITD, HBA 1C, CMP ####[place] [address] [place] [address] [phone] eGFR- Amer. >60 Normal 04-21-2019 [facility] (51081) Comment: Performed By: #### VITD, HBA 1C, CMP ####[place] [address] [place] [address] [phone] GFR/1.73 sq M predicted among 52 . Normal 04-21-2019 [facility] non-blacks MDRD (S/P/Bld) [Vol (62429) rate/Area] Comment: Result Comment: eGFR (Estima devin [...] Performed By: #### VITD, HBA 1C, CMP ####[facility] [place] [address] [phone] Glucose [Mass/Vol] 185 74-99 mg/dL High 04-21-2019 [facility] (88658) Comment: Result Comment: The [place] Diabetes Association (ADA) provides guidance for cutoff [...] for diagnosis of diabetes. Reference: Standards of [facility] Care in Diabetes 2016, [place] Diabetes Association. Diabetes Care. 2016.39(Suppl 1). Performed By: #### VITD, HBA 1C, CMP ####[facility] [address] [place] [address] [phone] Potassium [Moles/Vol] 4.6 3.7-5.1 mmol/L Normal 04-21-19 [facility] (90091) Comment: Performed By: #### VITD, HBA 1C, CMP ####[facility] [address] [place] [address] Protein [Mass/Vol] 7.1 6.3-8.0 g/dL Normal 04-21-2019 [facility] (48823) Comment: Performed By: #### VITD, HBA 1C, CMP ####[facility] [address] [place] [address] [phone] Sodium [Moles/Vol] 138 136-144 mmol/L Normal 04-21-2019 [facility] (11467) Comment: Performed By: #### VITD, HBA 1C, CMP ####[facility] [address] [place] [address] [phone] Urea nitrogen [Mass/Vol] 25 9-24 mg/dL High 04-21 [facility] (36230) Comment: Performed By: #### VITD, HBA 1C, CMP ####[facility] [place] [address] [phone] progress on 2019-03 PROGRESS HNO ID: [id number] Normal 04-19-2019 [facility] Author: Jeffy Fontenot (Rn) [place] ([id number]) Service: ? 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 Author Type: Nurse Practitioner Type: [...] of vessel, na tive or graft s/p AK in 1985 - Diverticulosis of colon (without [...] EGD W/O OR W/BRUSH/WASH 02/16/08 EGD [facility]pt [facility] H-pylori negative - EGD W/O OR W/BRUSH/WASH 05/24/15 EGD - EGD W/O OR W/BRUSH/WASH 12/21/2017 Dr. Anthony-repeat 3 years-11/2020 - HEART CATHETERIZATION 12/15/2014 [facility] - see scanned documents - HEART [...] G47.33 327.23 - fax compliance download to [phone] flash glucose sensor (FREESTYLE ANITRA 14 DAY [...] by mouth once daily. blood sugar diagnostic ([facility] [employer] BLOOD GLUCOSE SYSTEM) test s trip Use [...] (ONE TOUCH ULTRASOFT LANCETS) lancets Use with [facility] Glucometer as directed Aspirin 81 mg [...] including hand washing. - Instructed to call machine sole leveler or go to ED if high fev [...] and symptoms. All questions addressed. Ariana Arias APRN.CHIEF METEOROLOGIST cnov on 2019-04-05 CNOV Office Visit (UCWSTR) Normal 04-05-19 [place] [facility] LOVELY DEVI ([id number]) 1945 [place] Date Time Provider Department ([id number]) 04/05/19 11:15 AM ARIANA ARIAS [facility] During your visit today, [...] of vessel, na tive or graft s/p AK in 1985 - Diverticulosis of colon (without [...] Laterality Date - COLONOSCOP W/ OR W/O [facility] SPEC 12/21/2017 Dr. Anthony-repeat 3 years-11/2020 - COLONOSCOPY W/BX 02/21/09 - EGD W/O OR W/BRUSH/WASH EGD - EGD W/O [facility] W[facility]BRUSH[facility] - [facility] W/O OR W/BRUSH/WASH 05/24/15 EGD - EGD W/O OR W/BRUSH/WASH 12/21/2017 Dr. Anthony-repeat 3 years-11/2020 - HEART CATHETERIZATION 12/15/2014 [facility] - see scanned documents - HEART [...] G47.33 327.23 - fax compliance download to [phone] flash glucose sensor (FREESTYLE ANITRA 14 DAY [...] by mouth once daily. blood sugar diagnostic ([facility] [employer] BLOOD GLUCOSE SYSTEM) test s trip Use [...] including hand washing. - Instructed to call machine sole leveler or go to ED if high fever, [...] e person should be evaluated by an machine sole leveler. Contact lens wearers ? People who wear [...] within two weeks, an examination with an machine sole leveler may be recomme nded. CONJUNCTIVITIS PREVENTION Bacterial [...] person melinda uld be evaluated by an machine sole leveler. Contact lens wearers ? People who wear [...] touching their eyes, should probably not [facility] the [facility] has resolved. Older [...] 25 Hydroxy 25.2 31.0-80.0 ng/mL Low 9 [facility] (44731) Comment: Result Comment: Classificati on of 25 [place] Vitamin D status: Insufficiency/Moderate Defic iency: < or = 30 ng/mL Sufficiency/Optimal Levels: 31 to 80 ng/mL Toxicity: > 100 ng/mL Test performed by chemilumin escent immunoassay. Performed By: #### FERR, VIT D, IRON, TSH #### [facility] [address] [place] [phone] tsh on 2019-03-24 TSH Qn 2.590 0.270-4.200 uU/mL Normal 03-24-2019 [facility] (37013) Comment: Performed By: #### FERR, VIT D, IRON, TSH #### [facility] [address] [place] [phone] progress on 2019-02 PROGRESS HNO ID: [id number] Normal 03-24-2019 [place] Author: Ariana Richey) [facility] Service: ? [place] Author Type: Nurse Practitioner ([id number]) Type: Progress Notes Filed: 03/24/2019 4:47 PM Note Text: [facility] Sleep Disorders Center Follow-up/Established patient visit Date of last visit: 01/26/19 ? Sleep Disorder Dx Impression: Obstructive sleep apnea -?Compliant and beneffiting Residual daytime sleepiness.? ? Psychiatric Diagnoses: na ? Other Conditioning Diagnoses CAD, Afib, Petit's. Cardiomegaly, Obesity, Dysphagia, HTN, Reflux, DM2,?Neck mass lower left neck ? Case Formulation / [place] (may include pt's hopes, fears, ex pectations, [...] MD ? For this visit, a total pgaa-ox-jcgd time with the patient c omprised 30 [...] of vessel, na tive or graft s/p [place] in 1985 - Diverticulosis of colon (without [...] G47.33 327.23 - fax compliance download to [phone] flash glucose sensor (FREESTYLE ANITRA 14 DAY [...] by mouth once daily. blood sugar diagnostic ([facility] [facility] [employer] BLOOD GLUCOSE SYSTEM) test s trip Use [...] depending on your insurance coverage. Contact your [employer] company for new supplies as needed. - Patient to talk to Chencho at [facility] on mask fit. If unab le [...] Follow up in 3 month(s). Ariana Bernal APRN.CHIEF METEOROLOGIST PROGRESS HNO ID: [id number] Normal 03-24-2019 [place] Author: Deniz George SOLAR SYSTEM DESIGNER Clinic Service: ? [place] Author Type: ? (0000 0) Type: Progress Notes Filed: 03/24/2019 10:54 AM Note Text: iron and tibc on 17-03-26 Iron [Mass/Vol] 102 41-186 ug/dL Normal 03-24-2019 [facility] (99389) Comment: Performed By: #### FERR, VIT D, IRON, TSH #### [facility] [address] [place] [address] TIBC 402 232-386 ug/dL High 03-24-2019 [facility] (48876) Comment: Performed By: #### FERR, VIT D, IRON, TSH #### [facility] [address] [place], [place] [address] Transferrin Saturatn 25 15-57 % Normal 9 [facility] (77764) Comment: Performed By: #### FERR, VIT D, IRON, TSH #### [facility] [address] [place] [place], [place] [address] ferritin on 2019-02 Ferritin [Mass/Vol] 61.8 30.3-565.7 ng/mL Normal 9 [facility] (08111) Comment: Performed By: #### FERR, VIT D, IRON, TSH #### [facility] [address] [place], [place] [address] cnov on 2019-03-24 CNOV Office Visit (NEMOWS) Normal 03-24-[address] [place] [address] [facility] LOVELY DEVI ([id number]) 1945 [facility] Date Time Provider Department ([id number]) 03/24/19 11:00 AM ARIANA BERNAL (ELBA) NEMOWS During your visit today, we recorded the following informati on about you: Pulse Respiration Blood pressure Weight 62/minute 16/minute 123/58 122.5 kg Deniz George LPN 03/24/2019 10:54 AM Signed Ariana Bernal APRN.ELBA 03/24/2019 4:47 PM Signed [facility] Sleep Disorders Center Follow-up/Established patient visit Date of last visit: 01/26/19 ? Sleep Disorder Dx Impression: Obstructive sleep apnea -?Compliant and beneffiting Residual daytime sleepiness.? ? Psychiatric Diagnoses: na ? Other Conditioning Diagnoses CAD, Afib, Petit's. Cardiomegaly, Obes ity, Dysphagia, HTN, Reflux, DM2,?Neck mass lower left neck ? Case Formulation / [place] (may include pt's hopes, fears, ex pectations, [...] MD ? For this visit, a total nmxi-nq-fnuf time with the patient c omprised 30 minutes, with at least 50% of that time devoted to twit-rp-foaz counseling and coordination of care, with especial [...] of vessel, na tive or graft s/p AK in 1985 - Diverticulosis of colon (without [...] disease, with long-term current use of insulin ([facility]) 06/15/2017 - Unspecified essential hypertension PSH, SH: [...] G47.33 327.23 - fax compliance download to [phone] flash glucose sensor (FREESTYLE ANITRA 14 DAY [...] by mouth once daily. blood sugar diagnostic ([facility] [facility] [employer] BLOOD GLUCOSE SYSTEM) test s trip Use [...] TOUCH ULTRASOFT LANCETS) lancets Us e with [employer] Glucometer as directed Aspirin 81 mg ORAL [...] depending on your insurance coverage. Contact your [facility] [employer] company for new supplies as needed. - [...] not covered by insurance. Referring Provider: NIK UPENTE [[id number]] Allergies As of Date: 03/24/2019 Noted Allergy Reaction MORPHINE 02/28/2005 ROCEPHIN (CEFTRIAXONE SODIUM) 06/20/2014 14 - Other: See Com ments Comments: Hot flashes; redness to skin Date Reviewed: 03/24/2019 Reviewed by: Ariana ([employer]) Gabe - Fully Assessed Reason for Visit: [...] tabletRfl: 1 FERRITIN BLD [SQFERR] Order #: [id number] FUTURE IRON + TIBC [SQIRON] Order #: [id number] FUTURE TSH BLD [SQTSH] Order #: [id number] FUTURE VITAMIN D 25 HYDROXY [SQVITD] Order #: [id number] FUTURE rOPINIRole (REQUIP) 0.5 mg tabletTake 1 [...] file. Cosign accepted by MORGAN VALDEZ III, MD[[id number]] on 06/18/19 13 5:06 PM traZODone (DESYREL) 50 mg tablet 30 t* 0 02/17/2019 03/24/20 Route: ORAL Sig: Take 1 tablet by mouth daily at bedtime. Disc: Reason for discontinue is not on file. Disposition: Return in about 3 months (around 06/23/2019). Follow-up and Disposition History Recorded Encounter Status:Closed by ARIANA BERNAL on 03/24/19 progress on 2019-01 PROGRESS HNO ID: [id number] Normal 02-21-2019 [facility] Author: Linwood Carpenter MA [place] ([id number]) Service: ? Author Type: Resistance Brazer Type: Progress Notes Filed: 02/21/2019 7:22 PM Note Text: Per PCP written response: PCP in agreement with instructions below. Linwood Carpenter CMA PROGRESS HNO ID: [id number] Normal 02-21-2019 [facility] Author: Melany Yuen RN [place] ([id number]) Service: ? Author Type: ? Type: Progress Notes Filed: 02/21/2019 10:36 AM Note Text: patient had inr completed at [facility] patients inr is 2.9 (patients inr range [...] OBSOLETE Refill (NEMOWS) Normal 02-17-2019 [facility] LOVELY DEVI ([id number]) 1945 M [place] Date Time Provider Department ([id number]) 02/17/19 NIK PUENTE During your visit today, [...] lower left neck ? Case Formulation / [place] (may include pt's hopes, fears, ex pectations, [...] skin Date Reviewed: 01/26/2019 Reviewed by: Linwood ([facility]) JAZZY Carpenter - Fully Assessed Reason for Visit: Refill Request [94] Order(s):traZODone (DESYREL) 50 mg tabletTake 1 tablet by mo [facility] daily at bedtime.Disp: 30 tabletRfl: 0 [...] Normal 02-17-2019 [facility] LOVELY DEVI ([id number]) 1945 [facility] Date Time Provider Department ([id number]) 02/17/19 DENIZ GARSIA During your visit today, [...] skin Date Reviewed: 01/26/2019 Reviewed by: Linwood ([facility]) JAZZY Carpenter - Fully Assessed Reason for [...] mouth once ajay * LANCETS Use with [employer] Glucometer * COLESTIPOL 1 GRAM TABLET Take [...] on file. Encounter Status:Closed by DENIZ GARSIA CHIEF METEOROLOGIST on 02/17/19 obsolete on 2019-01 OBSOLETE Refill (FAMPWS) Normal 02-04-2019 [place] [facility] LOVELY DEVI ([id number]) 1945 [place] Date Time Provider Department (32131) 02/04/19 MORGAN VALDEZ III During your visit [...] skin Date Reviewed: 01/26/2019 Reviewed by: Linwood ([facility]) JAZZY Carpenter - Fully Assessed Reason for [...] mouth once ajay * LANCETS Use with [employer] Glucometer * COLESTIPOL 1 GRAM TABLET Take [...] 02/04/19 progress on 2018-12 PROGRESS HNO ID: [id number] Normal 01-26-2019 [facility] Author: Morgan Valdez III [place] ([id number]) Service: ? Author Type: Physician Type: Progress [...] G47.33 327.23 - fax compliance download to [phone] flash glucose sensor (FREESTYLE ANITRA 14 DAY [...] by mouth once daily. blood sugar diagnostic ([facility] BLOOD GLUCOSE SYSTEM) test s trip Use [...] of vessel, na tive or graft s/p [place] in 1985 - Diverticulosis of colon (without [...] Alatorre MD, III MD PROGRESS HNO ID: [id number] Normal 01-26-2019 [facility] Author: Nik Amado ([id number]) Service: ? Author Type: Physician Type: Progress Notes Filed: 01/26/2019 12:22 PM Note Text: [facility] [facility] Follow-up/Established patient visit Reason for Visit: med review. Time Out: 9:10 Time In: 8:53 For this visit, a total tecm-fg-qxop time with the patient c omprised 15 [...] lower left neck. ? Case Formulation / [place] (may include pt's hopes, fears, ex pectations, [...] G47.33 327.23 - fax compliance download to [phone] flash glucose sensor (FREESTYLE ANITRA 14 DAY [...] by mouth once daily. blood sugar diagnostic ([facility] BLOOD GLUCOSE SYSTEM) test s trip Use [...] mass lower left neck Case Formulation / [place] (may include pt's hopes, fears, ex pectations, [...] CNOV Office Visit (FAMPWS) Normal 01-27-20 19 [facility] LOVELY DEVI ([id number]) 1945 [facility] Date Time Provider Department ([id number]) 01/26/19 9:40 AM MORGAN VALDEZ III FAMPWS During your visit today, we recorded the following informati on about you: Pulse Respiration Blood pressure Weight 60/minute 18/minute 124/84 121.1 kg Moragn Valdez III MD 01/26/2019 12:49 PM Signed [...] humidity and lifetime supplies. Dx. JESSICA G47.33 327.08 - fax compliance download to [phone] flash glucose sensor (FREESTYLE ANITRA 14 DAY [...] by mouth once daily. blood sugar diagnostic ([facility] BLOOD GLUCOSE SYSTEM) test s trip Use [...] TOUCH ULTRASOFT LANCETS) lancets Us e with [employer] Glucometer as directed colestipol 1 gram tablet [...] of vessel, na tive or graft s/p [place] in 1985 - Diverticulosis of colon (without [...] disease, with long-term current use of insulin ([facility]) 06/15/2017 - Unspecified essential hypertension FAMILY HISTORY [...] III MD Referring Provider: MORGAN VALDEZ III [[id number]] Allergies As of Date: 01/26/2019 Noted Allergy Reaction MORPHINE 02/28/2005 ROCEPHIN (CEFTRIAXONE SODIUM) 06/20/2014 14 - Other: See Com ments Comments: Hot flashes; redness to skin Date Reviewed: 01/26/2019 Reviewed by: Linwood ([facility]) JAZZY Carpenter - Fully Assessed Reason for Visit: 3 month check up [Other] Primary Visit Diagnosis:Type 2 diabetes mellitus with st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, with long-term current use of insulin ([facility]) [E11.22, N18.3, Z79.4] Other Visit Diagnoses:Acute on chronic systolic congestive h eart failure ([facility]) [I50.23] Class 2 severe obesity due to excess calories with serious comorbidity and body mass index (BMI) of 38.0 to 38.9 in adult ([facility]) [E66.01, Z68.38] ASHD (arteriosclerotic heart disease) [I25.10] Paroxysmal atrial fibrillation ([facility]) [I48.0] Anticoagulated on Coumadin [Z79.01] Controlled type 2 diabetes mellitus without complication, with long-term current use of insulin ([facility]) [E11.9, Z79.4] Vitamin D 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] Order(s):HGB A1C [ZEBCP7L] Order #: [id number] FUTURE COMP METABOLIC PANEL [SQCMP] Order #: [id number] FUTURE insulin lispro (HUMALOG U-100 INSULIN) 100 unit/mL injection 18 units with breakfast, 17 units at lunch, and 24 units with supper. Disp: Rfl: VITAMIN D 25 HYDROXY [SQVITD] Order #: [id number] FUTURE Prescriptions as of 01/26/2019 Sig: TRAZODONE [...] 01/26/19 [place] Office Visit ([place]) Normal 01-27-20 [facility] LOVELY DEVI ([id number]) 1945 M [place] Date Time Provider Department ([id number]) 01/26/19 8:40 AM NIK PUENTE During your visit today, we recorded the following informati on about you: Pulse Respiration Blood pressure Weight 60/minute 20/minute 130/82 121.1 kg Nik Puente MD 01/26/2019 12:22 PM Signed [facility] Follow-up/Established patient visit Reason for Visit: med review. Time Out: 9:10 Time In: 8:53 For this visit, a total geig-op-moko time with the patient c omprised 15 minutes, with at least 50% of that time devoted to usbf-eg-gnfh counseling and coordination of care, with especial emph asis placed on answering the patient?s and/or family?s questions in a form that they can unde rstand and appreciate. Relevant Medications, allergies, hx Reviewed: yes Date of last visit: 11/24/18 Insurance: Medicare Home Location: [place] From Last Visit: Sleep Disorder Dx Impression: Obstructive sleep apnea -?Compliant and beneffiting Residual daytime sleepiness.? ? Psychiatric Diagnoses: na ? Other Conditioning Diagnoses CAD, Afib, Petit's. Cardiomegaly, Obes ity, Dysphagia, HTN, Reflux, DM2,?Neck mass lower left neck. ? Case Formulation / [place] (may include pt's hopes, fears, ex pectations, [...] G47.33 327.23 - fax compliance download to [phone] flash glucose sensor (FREESTYLE ANITRA 14 DAY [...] by mouth once daily. blood sugar diagnostic ([facility] BLOOD GLUCOSE SYSTEM) test s trip Use [...] mass lower left neck Case Formulation / [place] (may include pt's hopes, fears, ex pectations, [...] Nik Puente MD Referring Provider: ARIANA BERNAL ([facility]) [[id number]] Allergies As of Date: 01/26/2019 Noted Allergy Reaction MORPHINE 02/28/2005 ROCEPHIN (CEFTRIAXONE SODIUM) 06/20/2014 14 - Other: See Com ments Comments: Hot flashes; redness to skin Date Reviewed: 01/26/2019 Reviewed by: Linwood ([facility]) JAZZY Carpenter - Fully Assessed Reason for [...] (BMI) of 38.0 to 38.9 in adult ([facility]) [E66.01, Z68.38] 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, 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, with long-term current use of insulin ([facility]) [E11.22, N18.3, Z79.4] Localized swelling, mass and lump, neck [R22.1] Type 2 diabetes mellitus with peripheral neuropathy ([facility]) [E11.42] Order(s):traZODone (DESYREL) 50 mg tabletTake 1 [...] mouth once ajay * LANCETS Use with [employer] Glucometer * COLESTIPOL 1 GRAM TABLET Take [...] 01/26/19 progress on 2018-12 PROGRESS HNO ID: [id number] Normal 01-24-2019 [facility] Author: Linwood Carpenter MA [place] ([id number]) Service: ? Author Type: Resistance Brazer Type: Progress Notes Filed: 01/24/2019 4:23 PM Note Text: Per PCP written response: PCP in agreement with instructions below. Tracker updated. Linwood Carpenter CMA PROGRESS HNO ID: [id number] Normal 01-24-2019 [facility] Author: Melany Yuen RN [place] ([id number]) Service: ? Author Type: ? Type: Progress Notes Filed: 01/24/2019 10:44 AM Note Text: patient had inr completed at [facility] patients inr is 2.9 (patients inr range [...] INR. progress on 2018-12 PROGRESS HNO ID: [id number] Normal 01-17-2019 [facility] Author: Linwood Carpenter MA [place] ([id number]) Service: ? Author Type: Resistance Brazer Type: Progress Notes Filed: 01/17/2019 4:16 PM Note Text: Per PCP written response: Same coumadin, recheck on 01/31 as scheduled. Tracker updated . Patient notified, voiced understanding. Linwood Carpenter CMA PROGRESS HNO ID: [id number] Normal 01-17-2019 [facility] Author: Melany Yuen RN [place] ([id number]) Service: ? Author Type: ? Type: Progress [...] Cholesterol [Mass/Vol] 118 <200 mg/dL Normal 019 [facility] (36687) Comment: Result Comment: <200 mg/dL, Desirable 200-239 mg/dL, Borderline hi gh >239 mg/dL, High Performed By: #### CMP, LIPB , HBA1C ####[facility] [address] [place] [address] [phone] Cholesterol in HDL [Mass/Vol] 32 >39 mg/dL Low 01-14-2019 [facility] (11195) Comment: Result Comment: 40-59 mg/dL, Acceptable >59 mg/dL, High: Negative ri sk factor for coronary heart disease <40 mg/dL, Low: Positive ris k factor for coronary heart disease Performed By: #### CMP, LIPB , HBA1C ####[facility] [address] [place] [address] [phone] Cholesterol in LDL 52 <100 mg/dL Normal 01-14-2019 [facility] [Mass/Vol] [place] (96131) Comment: Result Comment: <100 mg/dL, Optimal 100-129 mg/dL, Near optimal/ above optimal 130-159 mg/dL, Borderline hi gh 160-189 mg/dL, High >189 mg/dL, Very high Secondary prevention optimal LDL Cholesterol levels are recommended to be < 70 mg/dL Performed By: #### CMP, LIPB , HBA1C ####[place] [address] [phone] Fasting Time 13 hrs Normal 01-14-2019 [facility] (00578) Comment: Performed By: #### CMP, LIPB , HBA1C ####[place] [address] [phone] LDL:HDL Ratio 1.63 <2.54 Normal 01-14-2019 [facility] (79067) Comment: Result Comment: Reference: 1. National Cholesterol Educ ation Program ATP III Guideline At-A-Glance Quick Desk Reference: National Heart, Lung, and Blood [place]. National Institutes of Health. 2001: NIH Publication No. 01-3305. 2. An International Atherosc lerosis Society position paper: global recommendations for the management of dyslipidemia: executive summary, Atherosclerosis. 2014: 232(2):410-413. Performed By: #### CMP, LIPB , HBA1C ####[place] [address] [phone] Non HDL Cholesterol 86 <130 mg/dL Normal 01-14-2019 [facility] (48033) Comment: Result Comment: <130 mg/dL, Optimal 130-159 mg/dL, Near optimal/ above optimal 160-189 mg/dL, Borderline hi gh 190-219 mg/dL, High >219 mg/dL, Very high Secondary prevention optimal non HDL Cholesterol levels are recommended to be < 100 mg/dL Performed By: #### CMP, LIPB , HBA1C ####[place] [address] [phone] TC:HDL Ratio 3.69 <5.10 Normal 01-14-2019 [facility] (68006) Comment: Performed By: #### CMP, LIPB , HBA1C ####[place] [address] [phone] Triglyceride [Mass/Vol] 172 <150 mg/dL High 2018 [facility] (62849) Comment: Result Comment: <150 mg/dL, Normal 150-199 mg/dL, Borderline hi gh 200-499 mg/dL, High >499 mg/dL, Very high Performed By: #### CMP, LIPB , HBA1C ####[address] [place] [address] [phone] VLDL Cholesterol 34 <30 mg/dL High 01-14-2019 [facility] (55707) Comment: Performed By: #### CMP, LIPB , HBA1C ####[address] [place] [address] [phone] hemoglobin a1c on 2 HbA1c (Bld) [Mass fraction] 7.3 4.3-5.6 % High [facility] (93764) Comment: Result Comment: [place] Dominique betes Association guidelines indicate that patients with HgbA1c in the range 5.7-6.4% are at increased risk for development of diabetes, and intervention by lifestyle modification may be beneficial. HgbA1c greater o r equal to 6.5% is considered diagnostic of diabetes. Performed By: #### CMP, LIPB , HBA1C ####[place] [address] [phone] HbA1c (Bld) [Mass fraction] 163 mg/dL Normal [facility] (22322) Comment: Result Comment: eAG: (Estima devin average glucose) is a calculated value from HgbA1c and is customer response representative of the average blood glucose level in the last 2-3 month period. Performed By: #### CMP, LIPB , HBA1C ####[place] [address] [place] [address] [phone] comp metabolic panel on 2019-01-14 Albumin [Mass/Vol] 4.3 3.9-4.9 g/dL Normal 01-14-2019 [facility] (57824) Comment: Performed By: #### CMP, LIPB , HBA1C ####[address] [place] [address] [phone] ALP [Catalytic activity/Vol] 54 38-113 U/L Normal 1 [facility] (48214) Comment: Performed By: #### CMP, LIPB , HBA1C ####[place] [address] [place] [address] [phone] ALT [Catalytic activity/Vol] 23 10-54 U/L Normal 1 [facility] (19276) Comment: Performed By: #### CMP, LIPB , HBA1C ####[place] [address] [place] [address] Anion gap [Moles/Vol] 11 9-18 mmol/L Normal 01-15-20 19 [facility] (34403) Comment: Performed By: #### CMP, LIPB , HBA1C ####[place] [address] [place] [address] AST [Catalytic activity/Vol] 25 14-40 U/L Normal 1 [facility] (80475) Comment: Performed By: #### CMP, LIPB , HBA1C ####[place] [address] [place] [address] Bilirubin [Mass/Vol] 0.7 0.2-1.3 mg/dL Normal 9 [facility] (04311) Comment: Performed By: #### CMP, LIPB , HBA1C ####[place] [address] [place] [address] Calcium [Mass/Vol] 8.6 8.5-10.2 mg/dL Normal 01-14-2019 [facility] (92816) Comment: Performed By: #### CMP, LIPB , HBA1C ####[place] [address] [place] [address] [phone] Chloride [Moles/Vol] 102 97-105 mmol/L Normal 9 [facility] (88089) Comment: Performed By: #### CMP, LIPB , HBA1C ####[place] [address] [place] [address] CO2 [Moles/Vol] 27 22-30 mmol/L Normal 01-14-2019 [facility] (72865) Comment: Performed By: #### CMP, LIPB , HBA1C ####[facility] [address] [place] [address] Creatinine [Mass/Vol] 1.24 0.73-1.22 mg/dL High 01-15-20 19 [facility] (04097) Comment: Performed By: #### CMP, LIPB , HBA1C ####[facility] [address] [place] [address] eGFR- Amer. >60 Normal 01-14-2019 [facility] (25577) Comment: Performed By: #### CMP, LIPB , HBA1C ####[facility] [place] [address] GFR/1.73 sq M predicted among 57 . Normal 01-14-2019 [facility] non-blacks MDRD (S/P/Bld) [Vol (63486) rate/Area] Comment: Result Comment: eGFR (Estima devin [...] By: #### CMP, LIPB , HBA1C ####[facility] [address] [place] [address] [phone] Glucose [Mass/Vol] 191 74-99 mg/dL High 01-14-2019 [facility] (61560) Comment: Result Comment: The [place] Diabetes Association (ADA) provides guidance for cutoff [...] for diagnosis of diabetes. Reference: Standards of [facility] Care in Diabetes 2016, [place] Diabetes Association. Diabetes Care. 2016.39(Suppl 1). Performed By: #### CMP, LIPB , HBA1C ####[place] [address] [place] [address] [phone] Potassium [Moles/Vol] 4.5 3.7-5.1 mmol/L Normal 01-15-20 19 [facility] (18646) Comment: Performed By: #### CMP, LIPB , HBA1C ####[place] [address] [place] [address] [phone] Protein [Mass/Vol] 6.7 6.3-8.0 g/dL Normal 01-14-2019 [facility] (42797) Comment: Performed By: #### CMP, LIPB , HBA1C ####[facility] [place] [address] [phone] Sodium [Moles/Vol] 140 136-144 mmol/L Normal 01-14-2019 [facility] (74541) Comment: Performed By: #### CMP, LIPB , HBA1C ####[facility] [place] [address] [phone] Urea nitrogen [Mass/Vol] 23 9-24 mg/dL Normal 01-14 [facility] (57221) Comment: Performed By: #### CMP, LIPB , HBA1C ####[facility] [place] [address] [phone] cnnurse on [facility] Nurse Visit (FAMPWS) Normal 9 [facility] LOVELY DEVI ([id number]) 1945 M [place] Date Time Provider Department ([id number]) 01/14/19 11:20 AM [place] NURSE SABI During your visit today, we [...] mouth once ajay * LANCETS Use with [employer] Glucometer * COLESTIPOL 1 GRAM TABLET Take [...] 2019-01-14 Absolute nRBC <0.01 <0.01 Normal 01-14-2019 [facility] (45430) Comment: Performed By: #### CBC #### [facility] [address] [place] [place], [place] [address] Erythrocyte distribution 14.6 11.5-15.0 % Normal 01-14 [facility] width (RBC) [Ratio] [place] (18785) Comment: Performed By: #### CBC #### [facility] [address] [place] [place], [place] [address] Hematocrit (Bld) [Volume 37.9 39.0-51.0 % Low 01-14 [facility] fraction] (27119) Comment: Performed By: #### CBC #### [facility] [address] [place] [place], [place] [address] Hemoglobin (Bld) 12.0 13.0-17.0 g/dL Low 01-14-2019 [facility] [Mass/Vol] [place] (92525) Comment: Performed By: #### CBC #### [facility] [place], [place] [address] MCH (RBC) [Entitic mass] 29.4 26.0-34.0 pG Normal 01-14 [facility] (40760) Comment: Performed By: #### CBC #### [facility] [address] [place], [place] [address] MCHC (RBC) [Mass/Vol] 31.7 30.5-36.0 g/dL Normal 01-15-20 19 [facility] (09218) Comment: Performed By: #### CBC #### [facility] [address] [place] [address] MCV (RBC) [Entitic vol] 92.9 80.0-100.0 fL Normal 01-14 [facility] (01668) Comment: Performed By: #### CBC #### [facility] [address] [address] Platelet mean volume 10.5 9.0-12.7 fL Normal 9 [facility] (Bld) [Entitic vol] [place] (98050) Comment: Performed By: #### CBC #### [address] [address] Platelets (Bld) [#/Vol] 154 150-400 k/uL Normal 2018 [facility] (40421) Comment: Performed By: #### CBC #### [address] [address] RBC (Bld) [#/Vol] 4.08 4.20-6.00 m/uL Low 01-14-2019 [facility] (51072) Comment: Performed By: #### CBC #### [facility] [address] [place], [place] [address] WBC (Bld) [#/Vol] 4.90 3.70-11.00 k/uL Normal 01-14-2019 [facility] (04010) Comment: Performed By: #### CBC #### [facility] [address] [place] [phone] albumin/creat ratio on 2019-01-14 Albumin Urine Random 15.6 mg/L Normal 9 [facility] (89979) Comment: Performed By: #### UACR #### [place] [address] [place], [place] [phone] Albumin/Creat Ratio 8 <30 mg/g Normal 01-14-2019 [facility] (88715) Comment: Result Comment: Adult Male a nd [...] 3(1), 1-150. Performed By: #### UACR #### [place] [address] [place], [place] [phone] Creatinine,Urine,Ran 206.0 20-300 mg/dL Normal 9 [facility] (29392) Comment: Performed By: #### UACR #### [facility] [place], [place] [phone] cnptoutreach on 12-07-14 CNPTOUTREACH Patient Outreach (FAMPST) Normal 1 [facility] ANA ROSAALMITALOVELY CARY ([id number]) 1945 [facility] Date Time Provider Department ([id number]) 01/11/19 MORGAN VALDEZ III During your visit [...] Order(s):ALBUMIN/CREAT RATIO RND UR [SQUACR] Order #: [id number] FUTURE CBC [SQCBC] Order #: [id number] FUTURE Prescriptions as of 01/11/2019 Sig: LISINOPRIL [...] mouth once ajay * LANCETS Use with [employer] Glucometer * COLESTIPOL 1 GRAM TABLET Take [...] congestive heart fail*INVALID FOR* Encounter Status:Closed by [employer] PRODUSER on 01/26/19 main or intraop record on 2017-02-23 Main [place] Intraop Record Normal 02-23- 017 [facility]) (13966) progress note-nurse on 2017-02-17 Progress Note-Nurse Normal 02-17-2017 [facility]) (36368) pro on 2017-02-17 INR Coag RelTime (PPP) 1.5 ratio Normal 017 [facility]) (41951) Comment: Result Comment: The [place] [employer] (CHEST, 1991, 102:312S-25S)recommended the rapeutic range for oral anticoagulant therapy is:LOW RISK: Prophylaxis of venous thrombosis INR: 2.0-3.0 Treatment of pulmonary embolism 2.0-3.0 P revention of systemic embolism 2.0-3.0HIGH RISK: Mechanical prosthetic valves 2.5-3.5 Performed By: #### CBC, ADIF F, ANEU, FIB, APTT, PRO, BMP, GFR ####[place] [address] Prothrombin time (PT) 17.7 9.0-14.5 seconds High 02-18-20 17 [facility] Coag time (PPP) [facility]) (26907) Comment: Result Comment: Effective , Protime results may be affected by some antibiotics (i.e. Ciprofloxa patrice, Azithromycin, Bactrim) which may potentiate the action of oral anticoagu lants, with further increases in Protime/INR. Performed By: #### CBC, ADIF F, ANEU, FIB, APTT, PRO, BMP, GFR ####[place] [address] fib on 2017-02-17 Fibrinogen 302 250-550 mg/dL Normal 02-17-2017 [facility] ([place]) (99345) Comment: Performed By: #### CBC, ADIF F, ANEU, FIB, APTT, PRO, BMP, GFR ####[place] [address] cbc on 2017-02-17 Erythrocyte distribution 13.8 11.5-15.5 % Normal 02-17 [facility] Auto Ratio (RBC) [facility] ([place]) (01684) Comment: Performed By: #### CBC, ADIF F, ANEU, FIB, APTT, PRO, BMP, GFR ####[place] [address] Erythrocytes (RBC) 4.38 4.50-6.00 10 6/mcL Low 02-17-2017 [facility] ([place]) (0000 0) Comment: Performed By: #### CBC, ADIF F, ANEU, FIB, APTT, PRO, BMP, GFR ####[place] [address] Hematocrit (HCT) 37.6 40.0-52.0 % Low 02-17-2017 [facility] ([place]) (72854) Comment: Performed By: #### CBC, ADIF F, ANEU, FIB, APTT, PRO, BMP, GFR ####[place] [address] Hemoglobin mass conc 12.9 13.0-17.5 G/dL Low 7 [facility] (d) ([place]) (0000 0) Comment: Performed By: #### CBC, ADIF F, ANEU, FIB, APTT, PRO, BMP, GFR ####[place] [address] MCH 29.4 27.0-33.0 pg Normal 02-17-2017 [facility] ([place]) (43132) Comment: Performed By: #### CBC, ADIF F, ANEU, FIB, APTT, PRO, BMP, GFR ####[place] [address] MCHC mass conc (RBC) 34.2 32.0-36.0 G/dL Normal 7 [facility] ([place]) (0000 0) Comment: Performed By: #### CBC, ADIF F, ANEU, FIB, APTT, PRO, BMP, GFR ####[place] [address] MCV 85.9 81.0-100.0 fL Normal 02-17-2017 [facility] ([place]) (55069) Comment: Performed By: #### CBC, ADIF F, ANEU, FIB, APTT, PRO, BMP, GFR ####[place] [address] Platelet mean volume 8.0 6.4-10.5 fL Normal [address] [place] [address] (V) ([place]) (0000 0) Comment: Performed By: #### CBC, ADIF F, ANEU, FIB, APTT, PRO, BMP, GFR ####[place] [address] Platelets 164 150-450 10 3/mcL Normal 02-17-2017 [facility] ([place]) (51478) Comment: Performed By: #### CBC, ADIF F, ANEU, FIB, APTT, PRO, BMP, GFR ####[place] [address] WBC (Leukocytes) 6.10 4.50-10.80 10 3/mcL Normal 02-17-2017 [facility] ([place]) (0000 0) Comment: Performed By: #### CBC, ADIF F, ANEU, FIB, APTT, PRO, BMP, GFR ####[place] [address] bmp on 2017-02-17 BUN/Creatinine Ratio 31.8 10.0-22.0 ratio High 7 [facility] ([place]) (0000 0) Comment: Performed By: #### CBC, ADIF F, ANEU, FIB, APTT, PRO, BMP, GFR ####[place] [address] Calcium 8.8 8.4-10.1 mg/dL Normal 02-17-2017 [facility]) (03689) Comment: Performed By: #### CBC, ADIF F, ANEU, FIB, APTT, PRO, BMP, GFR ####[place] [address] Chloride 109 98-110 mEq/L Normal 02-17-2017 [facility] ([place]) (71950) Comment: Performed By: #### CBC, ADIF F, ANEU, FIB, APTT, PRO, BMP, GFR ####[place] [address] CO2 27 22-32 mEq/L Normal 02-17-2017 [facility] ([place]) (33333) Comment: Performed By: #### CBC, ADIF F, ANEU, FIB, APTT, PRO, BMP, GFR ####[place] [address] Creatinine 1.10 0.60-1.40 mg/dL Normal 02-17-2017 [facility] ([place]) (64722) Comment: Performed By: #### CBC, ADIF F, ANEU, FIB, APTT, PRO, BMP, GFR ####[place] [address] Electrolyte Balance 7.0 4.0-15.0 mEq/L Normal 02-17-2017 [facility] ([place]) (0000 0) Comment: Performed By: #### CBC, ADIF F, ANEU, FIB, APTT, PRO, BMP, GFR ####[place] [address] Glucose mass conc 99 82-115 mg/dL Normal 02-17-2017 [facility] ([place]) (88107) Comment: Performed By: #### CBC, ADIF F, ANEU, FIB, APTT, PRO, BMP, GFR ####[place] [address] Potassium molar conc 4.0 3.5-5.0 mEq/L Normal 7 [facility] ([place]) (0000 0) Comment: Performed By: #### CBC, ADIF F, ANEU, FIB, APTT, PRO, BMP, GFR ####[place] [address] Sodium 143 136-145 mEq/L Normal 02-17-2017 [facility] [facility] ([place]) ([id number]) Comment: Performed By: #### CBC, ADIF F, ANEU, FIB, APTT, PRO, BMP, GFR ####[place] [address] Urea nitrogen 35.0 8.0-22.0 mg/dL High 02-17-2017 [facility] ([place]) ([id number]) Comment: Performed By: #### CBC, ADIF F, ANEU, FIB, APTT, PRO, BMP, GFR ####[place] [address] aptt on 2017-02-17 aPTT 32.6 25.0-35.0 seconds Normal 02-17-2017 [facility] ([place]) ([id number]) Comment: Result Comment: For Heparin anticoagulation therapy, the recommendedtherapeutic range is: 54-77 seconds (APTT Correlationwith Anti-Xa therapeutic range of 0.3-0.7 units/ml).PLEASE REFERENCE THE PHARMACY PROTOCOL FOR DOSING. Performed By: #### CBC, ADIF F, ANEU, FIB, APTT, PRO, BMP, GFR ####[place] [address] aPTT Coumadin PO Normal 02-17-2017 [facility] ([place]) ([id number]) Comment: Performed By: #### CBC, ADIF F, ANEU, FIB, APTT, PRO, BMP, GFR ####[place] [address] .neuabs on Neutrophils 4.30 2.25-8.10 10 3/mcL Normal 02-17-2017 [facility] ([place]) ([id number]) Comment: Performed By: #### CBC, ADIF F, ANEU, FIB, APTT, PRO, BMP, GFR ####[place] [address] .gfr on 2017-02-17 eGFR (non-black) >60 mL/min/{1.73_m2} Normal 2016 [facility] ([place]) (0000 0) Comment: Result Comment: GFR Populati [...] F, ANEU, FIB, APTT, PRO, BMP, GFR ####[place] [address] .auto diff on 02-17 Basophils Auto #/vol 0.10 0.00-0.27 10 3/mcL Normal 7 [facility] ([facility]) [facility] ([place]) ([id number]) Comment: Performed By: #### CBC, ADIF F, ANEU, FIB, APTT, PRO, BMP, GFR ####[address] [address] Basophils/100 WBC Auto (Bld) 1.1 0.0-2.5 % Normal 1 04-19-2016 [facility] ([place]) (0000 0) Comment: Performed By: #### CBC, ADIF F, ANEU, FIB, APTT, PRO, BMP, GFR ####[address] [address] Eosinophils 0.20 0.00-0.65 10 3/mcL Normal 02-17-2017 [facility] ([place]) ([id number]) Comment: Performed By: #### CBC, ADIF F, ANEU, FIB, APTT, PRO, BMP, GFR ####[address] [address] Eosinophils/100 leukocytes 2.7 0.0-6.0 % Normal [facility] ([place]) (0000 0) Comment: Performed By: #### CBC, ADIF F, ANEU, FIB, APTT, PRO, BMP, GFR ####[address] [address] Lymphocytes 1.10 0.90-4.32 10 3/mcL Normal 02-17-2017 [facility] ([place]) ([id number]) Comment: Performed By: #### CBC, ADIF F, ANEU, FIB, APTT, PRO, BMP, GFR ####[address] [address] Lymphocytes/100 leukocytes 17.9 20.0-40.0 % Low [facility] ([place]) (0000 0) Comment: Performed By: #### CBC, ADIF F, ANEU, FIB, APTT, PRO, BMP, GFR ####[address] [address] Monocytes 0.50 0.09-1.40 10 3/mcL Normal 02-17-2017 [facility] ([place]) ([id number]) Comment: Performed By: #### CBC, ADIF F, ANEU, FIB, APTT, PRO, BMP, GFR ####[address] [address] Monocytes/100 leukocytes 8.5 2.0-13.0 % Normal 02-17 [facility] ([place]) (0000 0) Comment: Performed By: #### CBC, ADIF F, ANEU, FIB, APTT, PRO, BMP, GFR ####[facility] [place] [address] Neutrophils/100 WBC Auto 69.8 50.0-75.0 % Normal 02-17 [facility] (d) [facility] ([place]) ([id number]) Comment: Performed By: #### CBC, ADIF F, ANEU, FIB, APTT, PRO, BMP, GFR ####[facility] [place] [address] office visit: mmm o n 2017-01-01 Documentation of Done Invalid Interpretation 01-01-2017 - [facility] current medications Code 01-01-2017 Group ([id number]) (procedure) Fall risk assessment No Invalid Interpretat ion 01-01-2017 - [place] [facility] Code 01-01-2017 Group (44 [id number]) Protein mass conc Done Invalid Interpretation 01-01-2017 - [place] [facility] Code 01-01-2017 Group ([id number]) clinical lists update: preload on 2016-12-30 Left ventricular 35 % Invalid Interpretation 12-30-2016 - [place] [facility] Ejection fraction Code 12-30-2016 [facility] ([id number]) chart maintenance o n 2016-11-16 Anion gap 9 mmol/L Invalid 11-16-2016 - [place] [facility] Interpretation Code 11-16-2016 Group ([id number]) Anion gap 4 molar 9 Invalid 11-16-2016 - [facility] conc Interpretation Code 11-16-2016 Group ([id number]) Anion gap molar 9 mmol/L 11-16-2016 - [place] conc 11-16-2016 Medical S [email or web address] ([id number] ) basophils as 0.5 % Invalid 11-16-2016 - [place] percent of blood Interpretation Code Medical Service, [facility] [employer] (310 64) manual count Calcium mass conc 8.3 mg/dL Low 11-16-2016 - [place] 11-16-2016 Medical S [employer] [employer] (50704 ) Chloride molar 105 mmol/L High 11-16-2016 - [place] conc 11-16-2016 Medical S ervice, [facility] (85235 ) Cholesterol in 30 mg/dL Low 11-16-2016 - [place] HDL mass conc 11-16-2016 Medic al Service, [facility] (97398 ) Cholesterol in 27 mg/dL Invalid 11-16-2016 - [place] LDL mass conc Interpretation Code 2016 Medical [facility], [facility] ([id number] ) Cholesterol mass 124 mg/dL Invalid 11-16-2016 - [place] conc Interpretation Code 11-16-2016 Medical Service, [facility] ([id number] ) CO2 25.0 mmol/L Invalid 11-16-2016 - [place] [facility] Interpretation Code 11-16-2016 Group ([id number]) CO2 ppres (BldV) 25.0 mmol/L Invalid 11-16-2016 - [place] Interpretation Code 11-16-2016 Medical Service, [facility] (05205 ) Creatinine mass 1.20 mg/dL Invalid 11-16-2016 - [place] conc Interpretation Code 11-16-2016 Medical [facility], [facility] (79469 ) eGFR (non-black) 77 mL/min/1.73 Invalid 11-16-2016 - [facility] m2 Interpretation Code 11-16-2016 Group ([id number]) eosinophils as 3.4 % Invalid 11-16-2016 - [place] percent of blood Interpretation Code Medical [facility], leukocytes, [facility] (445 91) manual count Erythrocyte 15.0 % High 11-16-2016 - [facility] distribution 11-16-2016 Group (59663) width Auto Ratio (RBC) Erythrocyte 15.0 % High 11-16-2016 - [place] distribution 11-16-2016 Medica l Service, width Ratio (RBC) LL C (84269) GFR/1.73 sq M 63 mL/min/1.73 Invalid 11-16-2016 - [place] predicted among m2 Interpretation Code 10-29 Medical Service, non[employer]bl[employer] (15189) vol rate/area (S/P/Bld) Glomerular 77 mL/min/1.73 Invalid 11-16-2016 - [place] Filtration Rate m2 Interpretation Code 10-29 [facility] (64076) Glucose mass conc 287 mg/dL High 11-16-2016 - [place] 11-16-2016 [employer] (30923 ) Hematocrit Auto 33.2 % Low 11-16-2016 - [place] [facility] Volume Fraction 11-16-2016 [facility] (33892) (Bld) Hematocrit Volume 33.2 % Low 11-16-2016 - [place] Fraction (Bld) 11-16-2016 [facility] ana [employer] (90383 ) Hemoglobin mass 11.4 g/dL Low 11-16-2016 - [place] conc (Bld) 11-16-2016 [employer] (45671 ) Lipoprotein.pre-b 67 mg/dL High 11-16-2016 - [place] eta mass conc 11-16-2016 [facility] [employer] (94967 ) Lymphocytes/100 26.6 % 11-16-2016 - [place] WBC (Bld) 11-16-2016 [employer] (37877 ) Lymphocytes/100 26.6 % Invalid 11-16-2016 - [place] [facility] WBC Auto (Bld) Interpretation Code 11-16 Group (16931) MCH Auto Entitic 29.9 pg Invalid 11-16-2016 - [place] [facility] mass (RBC) Interpretation Code 7 Group (07908) MCH Entitic mass 29.9 pg 11-16-2016 - [place] (RBC) 11-16-2016 [employer] (49511 ) MCHC Auto mass 34.3 g/dL Invalid 11-16-2016 - [place] [facility] conc (RBC) Interpretation Code 7 Group (64445) MCHC mass conc 34.3 g/dL 11-16-2016 - [place] (RBC) 11-16-2016 [employer] (05653 ) MCV Auto Entitic 87.1 fL Invalid 11-16-2016 - [facility] volume (RBC) Interpretation Code 017 Group (06533) MCV Entitic 87.1 fL 11-16-2016 - [place] volume (RBC) 11-16-2016 [employer] (26115 ) Monocytes/100 WBC 9.7 % 11-16-2016 - [place] (Bld) 11-16-2016 [employer] (40667 ) Monocytes/100 WBC 9.7 % Invalid 11-16-2016 - [place] [facility] Auto (Bld) Interpretation Code 7 Group (95083) Platelet mean 9.9 fL 11-16-2016 - [place] volume Entitic 11-16-2016 [facility] Service, volume (Bld) LLC (44 691) Platelet mean 9.9 fL Invalid 11-16-2016 - [place] [facility] volume Moiz-Annie Interpretation Code Group ([id number]) Entitic volume (Bld) Platelets #/vol 157 10*3/mm3 11-16-2016 - [place] (Bld) 11-16-2016 Medical S [email or web address] (14259 ) Platelets Auto 157 10*3/mm3 Invalid 11-16-2016 - [place] [facility] [facility] #/vol (Bld) Interpretation Code 11-17-19 17 Group ([id number]) Potassium molar 3.7 mmol/L Invalid 11-16-2016 - [place] conc Interpretation Code 11-16-2016 lettrs [facility] (15315 ) RBC #/vol (Bld) 3.81 10*6/uL Low 11-16-2016 - [place] 11-16-2016 Medical S [email or web address] (10806 ) RBC Auto #/vol 3.81 10*6/uL Low 11-16-2016 - [place] [facility] (Bld) 11-16-2016 Group (44 121) Sodium molar conc 139 mmol/L Invalid 11-16-2016 - [place] Interpretation Code 11-16-2016 lettrs [facility] (05749 ) Triglyceride mass 336 mg/dL High 11-16-2016 - [place] conc 11-16-2016 [email or web address] (38942 ) Urea nitrogen 24 mg/dL High 11-16-2016 - [place] mass conc 11-16-2016 [employer] (13430 ) Urea 20.0 mg/mg Invalid [facility]/Creatini Interpretation Code [facility] mass ratio [facility] ([id number] [phone]) very low density 67 mg/dL High 11-16-2016 - [facility] lipoproteins 11-16-2016 Group (47463) WBC #/vol (Bld) 4.4 10*9/L 11-16-2016 - [place] 11-16-2016 Medical [email or web address] (02704 ) WBC Auto #/vol 4.4 10*9/L Invalid 11-16-2016 - [place] [facility] (Bld) Interpretation Code 11-16-2016 Group (70946) chart maintenance o n 2016-11-15 INR Coag RelTime 2.5 {INR} Invalid 11-15-2016 [facility] (PPP) Interpretation Code 11-15-2016 [employer] (90051 ) Prothrombin time 25.7 s High 11-15-2016 [facility] (PT) Coag time 11-15-2016 [facility] ([facility] [employer] (29655 ) office visit on 10-03-07 Documentation of Done Invalid 09-04-2016 - [facility] current medications Interpretation Code 09-04-2016 Group ([id number]) (procedure) Fall risk assessment No Invalid Heart Interpretation Code 09-04-2016 Group ([id number]) Protein mass conc Done Invalid 09-04-2016 - [place] Interpretation Code 09-04-2016 [employer] (78538 ) clinical lists update: preload on 2016-09-03 Left ventricular 35 % Invalid Interpretation 09-03-2016 - [place] [facility] Ejection fraction Code 09-03-2016 [facility] (46793) clinical lists update: preload on 2016-07-01 Anion gap 9 mmol/L Invalid 07-01-2016 - [place] Interpretation Code 07-01-2016 [facility] ([id number]) BUN/Creatinine 23.1 mg/mg High 07-01-2016 - [place] Ratio 07-01-2016 Heart [facility] (66313) Calcium 8.7 mg/dL Invalid 07-01-2016 - [place] Interpretation Code 07-01-2016 [facility] (72943) Chloride 103 mmol/L Invalid 07-01-2016 - [place] Interpretation Code 07-01-2016 [facility] ([id number]) CO2 28..0 Invalid 07-01-2016 - [place] Interpretation Code 07-01-2016 [facility] (28890) Creatinine 1.30 mg/dL Invalid 07-01-2016 - [place] Interpretation Code 07-01-2016 [facility] (41725) eGFR (non-black) 70 mL/min/1.73m Invalid 07-01-2016 - [place] 2 Interpretation Code 07-01-2016 [facility] (68144) eGFR (non-black) 58 mL/min/1.73m Low 07-01-2016 - [place] 2 07-01-2016 [facility] (97057) Erythrocytes (RBC) 4.58 10*6/uL Low 07-01-2016 - [place] 07-01-2016 [facility] (75858) Glucose 195 mg/dL High 07-01-2016 - [place] 07-01-2016 [facility] (87912) Hematocrit (HCT) 41.2 % Invalid 07-01-2016 - [place] Interpretation Code 07-01-2016 [facility] (21130) Hemoglobin (HGB) 13.6 g/dL Invalid 07-01-2016 - [place] Interpretation Code 07-01-2016 [facility] (85735) MCH 29.7 pg Invalid 07-01-2016 - [place] Interpretation Code 07-01-2016 [facility] (06741) MCHC 33.0 g/dL Invalid 07-01-2016 - [place] Interpretation Code 07-01-2016 [facility] ([id number]) MCV 90.0 fL Invalid 07-01-2016 - [place] Interpretation Code 07-01-2016 [facility] ([id number]) Platelets 172 10*3/mm3 Invalid 07-01-2016 - [place] Interpretation Code 07-01-2016 [facility] ([id number]) PMV by Cindi 9.8 fL Invalid 07-01-2016 - [place] Interpretation Code 07-01-2016 [facility] ([id number]) Potassium 3.8 mmol/L Invalid 07-01-2016 - [place] Interpretation Code 07-01-2016 [facility] (59531) RDW-CA 13.8 % Invalid 07-01-2016 - [place] Interpretation Code 07-01-2016 [facility] ([id number]) Sodium 140 mmol/L Invalid 07-01-2016 - [place] Interpretation Code 07-01-2016 [facility] ([id number]) Urea nitrogen 30 mg/dL High 07-01-2016 - [place] [facility] 07-01-2016 Heart [facility] (77508) WBC (Leukocytes) 4.9 10*9/L Invalid 07-01-2016 - [place] Interpretation Code 07-01-2016 [facility] ([id number]) replaced document: midmark ecg observati ons on 2016-06-19 BUN (urea nitrogen) Sinus Rhythm Invalid 017 - [facility] -Frequent pvcs Interpretation 06-19-2016 Group ([id number]) -ventricular Code bigeminy -Right bundle branch block. - Inferior -lateral infarct (age undetermined). ABNORMAL EKG QRS axis -12 deg Invalid 06-19-2016 - [place] Interpretation 06-19-2016 Medi ana Code Service, L [place] ([id number]) GE use only - for 428 ms Invalid 06-19-2016 - [facility] [employer] import Interpretation 06-20-19 17 Group ([id number]) when terms are not Code otherwise specified P [place] 40 deg Invalid 06-19-2016 - [place] Interpretation 06-19-2016 Medi ana Code Service, L [place] (60061) P wave axis, 40 deg Invalid 06-19-2016 - [facility] electrocardiogram Interpretation 017 Group (95917) Code NH Interval 156 ms Invalid 06-19-2016 - [place] Interpretation 06-19-2016 Medi ana Code Service, L LC ([id number]) NH interval, 156 ms Invalid 06-19-2016 - [facility] electrocardiogram Interpretation 017 Group (65648) Code Pulse (Heart Rate) 81 BPM /min Invalid 06-19-2016 - [place] [facility] Interpretation 06-19-2016 Grou p (03243) Code QRS axis, -12 deg Invalid 06-19-2016 - [place] [facility] electrocardiogram Interpretation 017 Group (70040) Code QRS Duration 144 ms Invalid 06-19-2016 - [place] Interpretation 06-19-2016 Medi ana Code Service, L [place] (25735) QRS duration, 144 ms Invalid 06-19-2016 - [place] [facility] electrocardiogram Interpretation 017 Group (95454) Code QT Interval new path ms Invalid 06-19-2016 - [place] Interpretation 06-19-2016 Medi ana Code Service, L [place] (92060) QT interval, new path ms Invalid 06-19-2016 - [place] [facility] electrocardiogram Interpretation 017 Group (59667) Code QTc Hung 428 ms Invalid 06-19-2016 - [place] Interpretation 06-19-2016 Medi ana Code Service, L LC ([id number]) T [place] -1 deg Invalid 06-19-2016 - [place] Interpretation 06-19-2016 Medi ana Code Service, L LC (62612) T wave axis, -1 deg Invalid 06-19-2016 - [facility] electrocardiogram Interpretation 017 Group ([id number]) Code Urea nitrogen mass Sinus Rhythm 06-20-19 17 - [place] conc -Frequent pvcs 06-19-2016 [facility] ana -ventricular Service , [facility] bigeminy -Right (446 91) bundle branch block. - Inferior -lateral infarct (age undetermined). ABNORMAL office visit on 09-29-22 Documentation of Done Invalid Interpretation 06-19-2016 - [facility] current medications Code 06-19-2016 Group (76744) (procedure) Fall risk assessment No Invalid Interpretat ion 06-19-2016 - [place] [facility] Code 06-19-2016 Group (89 821) lab report: magnesium on 2016-06-19 Magnesium 2.0 1.8-2.4 mg/dL Invalid Interpretation 017 - [place] [facility] Code 06-19-2016 Group (44 381) lab report: basic metabolic profile (bmp ) on 2016-06-19 Anion gap 8 5-15 mmol/L Invalid 06-19-2016 - [place] [facility] Interpretation 06-19-2016 Grou p (60850) Code BUN/Creatinine 20.4 10-20 High 06-19-2016 - [place] [facility] Ratio RATIO 06-19-2016 Group (29 091) Calcium 9.1 8.5-10.1 mg/dL Invalid 06-19-2016 - [facility] Interpretation 06-19-2016 Grou p ([id number]) Code Chloride 103 98-107 mmol/L Invalid 06-19-2016 - [facility] Interpretation 06-19-2016 Grou p ([id number]) Code CO2 30.0 21.0-32. mmol/L Invalid 06-19-2016 - [facility] 0 Interpretation 06-19-2016 Grou p ([id number]) Code Creatinine 1.13 0.70-1.3 mg/dL Invalid 06-19-2016 - [place] [facility] 0 Interpretation 06-19-2016 Grou p ([id number]) Code eGFR 82 >60 mL/min Invalid 06-19-2016 - [place] [facility] (non-black) Interpretation 06-19-2016 Gr oup (63602) Code eGFR 68 >60 mL/min Invalid 06-19-2016 - [facility] (non-black) Interpretation 06-19-2016 Gr oup (81440) Code EST GFR - AA 82 >60 mL/min Invalid 06-19-2016 - [place] Interpretation 06-19-2016 [facility] ana Code Service, L LC ([id number]) Glucose 93 70-110 mg/dL Invalid 06-19-2016 - [facility] Interpretation 06-19-2016 Grou p ([id number]) Code Potassium 3.9 3.5-5.1 mmol/L Invalid 06-19-2016 - [facility] Interpretation 06-19-2016 Grou p ([id number]) Code Sodium 141 136-145 mmol/L Invalid 06-19-2016 - [place] [facility] Interpretation 06-19-2016 Grou p ([id number]) Code Urea nitrogen 23 7-18 mg/dL High 06-19-2016 - [place] [facility] 06-19-2016 Group (44 221) clinical lists update: preload on 2016-05-31 Hematocrit (HCT) 36.8 % Low 05-31-2016 - [place] [facility] 05-31-2016 Group (44 131) Hemoglobin (HGB) 11.9 g/dL Low 05-31-2016 - [place] [facility] 05-31-2016 Group (44 611) Platelets 152 10*3/mm3 Invalid 05-31-2016 - [place] [facility] Interpretation Code 05-31-2016 Group ([id number]) lab report: liver profile on 2016-05-21 Alanine 33 12-78 U/L Invalid 05-21-2016 - [facility] aminotransferase Interpretation 05-21-19 17 Group ([id number]) (ALT) Code Albumin 4.1 3.4-5.0 g/dL Invalid 05-21-2016 - [place] [facility] Interpretation 05-21-2016 Grou p ([id number]) Code Alkaline phosphatase 60 45-117 U/L Invalid 7 - [place] [facility] (ALP) Interpretation 05-21-2016 Grou p ([id number]) Code ALP enzyme act/vol 60 45-117 U/L Invalid 05-21-2016 - [place] (Bld) Interpretation 05-21-2016 Medi ana Code Service, L LC ([id number]) Aspartate 27 15-37 U/L Invalid 05-21-2016 - [place] [facility] aminotransferase Interpretation 05-21-19 17 Group ([id number]) (AST) Code Bilirubin (direct) 0.06 0.00-0.30 mg/dL Invalid 05-21-2016 - [place] [facility] Interpretation 05-21-2016 Grou p ([id number]) Code Bilirubin (total) 0.40 0.20-1.00 mg/dL Invalid 05-21-2016 - [facility] Interpretation 05-21-2016 Grou p ([id number]) Code Globulin 2.9 2.3-3.5 g/dL Invalid 05-21-2016 - [place] [facility] Interpretation 05-21-2016 Grou p ([id number]) Code Globulin mass conc 2.9 2.3-3.5 g/dL 05-21-2016 - [place] (S) 05-21-2016 Medical Service, LC ([id number]) Protein 7.0 6.4-8.2 g/dL Invalid 05-21-2016 - [facility] [facility] Interpretation 05-21-2016 Grou p ([id number]) Code lab report: lipid profile on 2016-05-21 Cholesterol 140 200 mg/dL Invalid 05-21-2016 - [place] [facility] Interpretation Code 05-21-2016 Group (48858) HDL Cholesterol 40 mg/dL Invalid 05-21-2016 - [place] [facility] Interpretation Code 05-21-2016 Group ([id number]) LDL Cholesterol 68 0-130 mg/dL Invalid 05-21-2016 - [place] [facility] Interpretation Code 05-21-2016 Group ([id number]) Triglyceride 158 mg/dL Invalid 05-21-2016 - [facility] Interpretation Code 05-21-2016 Group ([id number]) very low density 32 5-40 mg/dL Invalid 05-21-2016 - [place] [facility] lipoproteins Interpretation Code 017 Group (07861) office visit on 09-09-15 Dietary yes Invalid 03-14-2016 - [place] [facility] management Interpretation Code 6 Group (02117) education, guidance, and counseling (procedure) Tobacco smoking Former Invalid 03-14-2016 - [place] status NHIS smoker Interpretation Code 03-14-20 Medical Service, [facility] ([id number] ) Tobacco use CPHS Former Invalid 03-14-2016 - [facility] smoker Interpretation Code 03-14-2016 Group ([id number]) lab report: prothrombin time w/inr on 2016-03-14 Coagulation 18.7 SECONDS 11.7-14.9 High 03-14-2016 - [place] tissue factor 03-14-2016 Heart Group induced in ([id number]) platelet poor plasma INR in blood by 1.6 {INR Invalid 03-14-2016 - [place] coagulation } Interpretation 03-14-2016 He art Group Code ([id number]) lab report: prothrombin time fingerstick on 2016-02-15 Coagulation 12.9 SEC 11.9-14.4 Invalid 02-15-2016 - [place] tissue factor Interpretation Code 2015 [facility] induced in (60643) platelet poor plasma lab report: cbc-complete blood cnt no di ff on 2016-01-30 Erythrocyte 44.7 35.1-43.9 fL High 01-30-2016 - [place] [facility] distribution 01-30-2016 Group ([id number]) width Auto Ratio (RBC) Erythrocyte 44.7 35.1-43.9 fL High 01-30-2016 - [place] distribution 01-30-2016 Medica l width [facility] (RBC) (69198) Erythrocytes 4.60 4.6-6.2 10*6/u Invalid 01-30-2016 - [facility] (RBC) L Interpretation 01-30-2016 Grou p ([id number]) Code MCH 29.8 27.0-32.0 pg Invalid 01-30-2016 - [facility] Interpretation 01-30-2016 Grou p ([id number]) Code MCHC 33.9 32-36 Invalid 01-30-2016 - [place] [facility] G/GL Interpretation 01-30-2016 Grou p ([id number]) Code MCV 87.8 80-94 fL Invalid 01-30-2016 - [place] [facility] Interpretation 01-30-2016 Grou p ([id number]) Code PMV by 9.8 6.2-12.0 fL Invalid 01-30-2016 - [facility] Interpretation 01-30-2016 [facility] ([id number]) Code RDW SD 44.7 35.1-43.9 fL High 01-30-2016 - [place] [facility] 01-30-2016 Group (44 401) RDW-CA 14.0 11.6-14.6 % Invalid 01-30-2016 - [facility] Interpretation 01-30-2016 Grou p ([id number]) Code red blood cell 44.7 35.1-43.9 fL High 01-30-2016 - [place] [facility] distribution 01-30-2016 Group ([id number]) width, size density WBC (Leukocytes) 5.5 4.4-11.0 10*9/L Invalid 01-30-2016 - [place] [facility] Interpretation 01-30-2016 Grou p ([id number]) Code clinical lists update: preload on 2016-01-16 Left ventricular 35 % Invalid Interpretation 01-16-2016 - [facility] Ejection fraction Code 01-16-2016 G [facility] ([id number]) lab report: bedside glucose on 2014-12-15 Glucose 227 70-110 mg/dL High 12-15-2014 - [facility] 12-15-2014 ([id number]) Glucose mass conc 227 70-110 mg/dL High 12-15-2014 [facility] 12-15-2014 [employer] (92307) clinical lists update: preload on 2014-12-08 Cholesterol in 2.93 Invalid 12-08-2014 - [facility] LDL/Cholesterol in HDL Interpretation Co de 12-08-2014 [facility] [employer] (4464 1) Cholesterol to HDL 5.85 High 12-08-2014 - [place] [facility] Ratio 12-08-2014 Group (44 691) HbA1c 7.1 % High 12-08-2014 - [facility] 12-08-2014 Group (44 691) LDL/HDL ratio, serum 2.93 Invalid 5 - [facility] Interpretation Code 12-08-2014 Group ([id number]) office visit on 07-10-15 cardiac risk group C Invalid Interpretatio n 03-14-2014 - [place] [facility] Code 03-14-2014 Group (44 [id number]) General cardiovascular N/A Invalid Interpret ation 03-14-2014 - [place] [facility] disease 10Y risk [#] Code 4 Group (87927) [place] replaced document: midmark ecg observati ons on 2012-03-04 Pulse (Heart 430 ms Invalid Interpretation -0 - [place] [facility] Rate) Code 03-04-2012 Group (44 751) clinical lists update: preload on 2011-03-15 [facility] 34.7 % Invalid Interpretation 011 - [facility] Group Code 03-15-2011 ([id number]) [facility] mass conc 34.7 % 03-15-2011 - [facility] (RBC) 03-15-2011 [employer] (47532) Vital Signs Vital Sign Description Value / Unit Date Location The following section is limited to 5 en tries per type and includes entries from the following time range: [id number] - 5. BMI (Body Mass Index) 38.16 kg/m2 01-01-2017 - 01-01-2017 [facility] ([id number]) BMI (Body Mass Index) 37.35 kg/m2 09-04-2016 - 09-04-2016 [facility] (71252) BMI (Body Mass Index) 36.94 kg/m2 06-19-2016 - 06-19-2016 [facility] ([id number]) BP Diastolic 80 mm[Hg] 01-01-2017 - 01-01-2017 [place] [facility] ([id number]) BP Diastolic 50 mm[Hg] 09-04-2016 - 09-04-2016 [facility] ([id number]) BP Diastolic 70 mm[Hg] 06-19-2016 - 06-19-2016 [facility] ([id number]) BP Diastolic 90 mm[Hg] 03-29-2015 - 03-29-2015 [facility] ([id number]) BP Diastolic 96 mm[Hg] 03-29-2015 - 03-29-2015 [place] [facility] ([id number]) BP Systolic 134 mm[Hg] 01-01-2017 - 01-01-2017 [place] [facility] ([id number]) BP Systolic 90 mm[Hg] 09-04-2016 - 09-04-2016 [facility] (26722) BP Systolic 110 mm[Hg] 06-19-2016 - 06-19-2016 [facility] (47657) BP Systolic 122 mm[Hg] 03-29-2015 - 03-29-2015 [place] [facility] ([id number]) BP Systolic 120 mm[Hg] 03-29-2015 - 03-29-2015 [facility] ([id number]) BSA (Body Surface Area) 2.21 m2 03-14-2016 - 03-14-2016 [facility] (68354) Heart rate 81 /min 06-19-2016 - 06-19-2016 [facility] (44 691) Heart rate 430 ms 03-04-2012 - 03-04-2012 [facility] (44 691) Height 172.72 cm 01-01-2017 - 01-01-2017 [facility] (21823) Height 172.72 cm 09-04-2016 - 09-04-2016 [facility] (32869) Height 172.72 cm 06-19-2016 - 06-19-2016 [facility] ([id number]) Pulse (Heart Rate) 64 /min 01-01-2017 - 01-01-2017 [facility] ([id number]) Pulse (Heart Rate) 64 /min 09-04-2016 - 09-04-2016 [facility] ([id number]) Pulse (Heart Rate) 80 /min 06-19-2016 - 06-19-2016 [facility] ([id number]) Respiratory Rate 20 /min 01-01-2017 - 01-01-2017 [facility] ([id number]) Respiratory Rate 20 /min 09-04-2016 - 09-04-2016 [facility] ([id number]) Respiratory Rate 20 /min 06-19-2016 - 06-19-2016 [facility] ([id number]) Weight 113.85 kg 01-01-2017 - 01-01-2017 [facility] ([id number]) Weight 111.45 kg 09-04-2016 - 09-04-2016 [facility] ([id number]) Weight 110.22 kg 06-19-2016 - 06-19-2016 [facility] ([id number]) Encounters Date Type Reason Provider Location 02-17-2017 - Ambulatory KI ESTAFANOUS Facility:A 02-17-2017 12-13-2019 - Chart abstracting Morgan langley [place] 12-13-2019 Comment: Outside Lab Results (CBC, BM P) 01-07-2020 - 01-07-2020 Patient encounter [facility] procedure [place] Comment: Non-Urgent Medical Question 12-18-2019 - [...] 11-13-2019 - 11-13-2019 Patient encounter [facility] procedure [place] Comment: RE: Non-Urgent [facility] 11-10-2019 - Patient encounter External [facility] 11-10-2019 procedure Provider 01-06-2020 - Refill Type 2 diabetes Morgan Mooney [facility]ine 01-06-2020 mellitus [place] Comment: Refill Request 12-07-2019 - 12-07-2019 Refill Type 2 diabetes Morgan [facility] mellitus [place] Comment: Refill Request 12-06-2019 Results Only [facility] 11-23-2019 Results Only [facility]ist [facility] 11-10-2019 - Results Only External Provider External-N [facility] 11-10-2019 12-27-2019 - Telephone encounter Morgan Mooney [facility] 12-27-2019 [place] Comment: Patient Question 12-20-2019 - Telephone Paroxysmal atrial [facility] mbulatory 12-20-2019 encounter fibrillation (Pharmacist) Telemanagement Comment: Anticoagulation Telephone Fu (Home INR result) 12-08-2019 - 12-08-2019 Telephone encounter Morgan Mooney [facility] 12-06-2019 - Telephone [...] BMP - EXTERNAL 12-09-2019 [facility] Provider [facility] ([id number]) CBCDIF (EXTERNAL) 12-09-2019 [facility] Provider [facility] ([id number]) INR Coag (PPP) [Relative 12-06-2019 Pharmacist Home Inr [facility] time] ([id number]) INR Coag (PPP) [Relative 11-23-2019 Pharmacist Home Inr [facility] time] ([id number]) EXTERNAL CARDIOLOGY 11-10-2019 External Provider [facility] ([id number]) EXTERNAL IMAGING 11-10-2019 External Provider [facility] ([id number]) Colonoscopy 01-06-2018 - [facility] 01-06-2018 ([id number]) Prgrmng dev eval 01-30-2017 - MD [facility] implantable in persn 1 ld 02-02-2017 ([id number] ) dfb Follow Up Appt 3 months 10-30-2016 - MD [facility] 12-17-2016 ([id number]) Pacer Clinic 10-30-2016 - MD [facility] 12-17-2016 ([id number]) Prgrmng dev eval 10-30-2016 - MD [facility] implantable in persn 1 ld 10-30-2016 ([id number] ) dfb Icd device prog eval, 1 10-30-2016 - MD [facility] sngl 10-30-2016 ([id number]) Follow Up Appt 3 months 09-04-2016 - MD [facility] 12-17-2016 ([id number]) MMM 09-04-2016 - MD [facility] 12-17-2016 ([id number]) Follow Up Appt 3 months 07-30-2016 - MD [facility] 11-17-2016 ([id number]) Pacer Clinic 07-30-2016 - MD [facility] 11-17-2016 ([id number]) Prgrmng dev eval 07-30-2016 - MD [facility] implantable in persn 1 ld 07-30-2016 ([id number] ) dfb Icd device prog eval, 1 07-30-2016 - MD [facility] sngl 11-17-2016 ([id number]) Pacer Clinic 07-30-2016 - MD Darlyn Rogers [place] [facility] 11-17-2016 [employer] ([phone]) *BMP 06-19-2016 - MD [facility] 06-19-2016 ([id number]) FAMILY LIFE COUNSELOR 06-19-2016 - MD [facility] 06-19-2016 ([id number]) Follow Up Appt 3 months 06-19-2016 - MD [facility] 11-17-2016 ([id number]) Magnesium [Mass/volume] in 06-19-2016 - MD [facility] Serum or Plasma 06-19-2016 ([id number]) Pacer Clinic 06-19-2016 - MD [facility] 11-17-2016 ([id number]) Prgrmng dev eval 06-19-2016 - MD [facility] implantable in persn 1 ld 06-23-2016 ([id number] ) dfb Referral to potato chip packaging machine operator 06-19-2016 - MD [facility] 06-20-2016 ([id number]) *BMP 06-19-2016 - MD [facility] 06-19-2016 ([id number]) FAMILY LIFE COUNSELOR 06-19-2016 - MD [facility] 06-19-2016 ([id number]) Follow Up Appt 3 months 06-19-2016 - MD [facility] 11-17-2016 ([id number]) Icd device prog eval, 1 06-19-2016 - MD [facility] sngl 06-23-2016 ([id number]) Magnesium 06-19-2016 - MD [facility] 06-19-2016 ([id number]) Pacer Clinic 06-19-2016 - MD Darlyn Rogers [place] dical 11-17-2016 [employer] ([phone]) Referral to potato chip packaging machine operator 06-19-2016 - Johan Perry MD [facility] 06-20-2016 [employer] ([phone]) *Hepatic Function Panel 05-21-2016 - MD [facility] 05-21-2016 ([id number]) Lipid 1996 panel - Serum or 05-21-2016 - MD Pauline [facility] Plasma 05-21-2016 ([id number]) *Hepatic Function Panel 05-21-2016 - MD [facility] 05-21-2016 ([id number]) Lipid panel [AGGREGATE] 05-21-2016 - MD [facility] 05-21-2016 ([id number]) Follow Up Appt 3 months 04-30-2016 - MD [facility] 11-17-2016 ([id number]) Pacer Clinic 04-30-2016 - MD [facility] 11-17-2016 ([id number]) Prgrmng dev eval 04-30-2016 - MD [facility] implantable in persn 1 ld 11-17-2016 ([id number] ) dfb Icd device prog eval, 1 04-30-2016 - MD [facility] sngl 11-17-2016 ([id number]) Pacer Clinic 04-30-2016 - MD Darlyn Rogers Me dical 11-17-2016 [employer] ([phone]) Carotid duplex 03-14-2016 - MD [facility] 04-01-2016 ([id number]) Follow Up Appt 3 months 03-14-2016 - MD [facility] 03-14-2016 ([id number]) INR in Platelet poor plasma 03-14-2016 - MD Pauline [facility] by Coagulation assay 03-14-2016 ([id number]) MMM 03-14-2016 - MD [facility] 03-14-2016 ([id number]) Dietary management 03-14-2016 - Darlyn galaviz education, guidance, and 03-14-2016 [employer] ([id number]) counseling Carotid duplex 03-14-2016 - MD [facility] 04-01-2016 ([id number]) Coagulation factor 03-14-2016 - MD [facility] induced.INR assay in 03-14-2016 ([id number]) platelet poor plasma Follow Up Appt 3 months 03-14-2016 - MD [facility] 03-14-2016 ([id number]) MMM 03-14-2016 - MD [facility] 03-14-2016 ([id number]) *BMP 01-30-2016 - MD [facility] 01-30-2016 ([id number]) CBC W Auto Differential 01-30-2016 - MD Maxim [facility] panel - Blood 01-30-2016 ([id number]) Chest x-ray 01-30-2016 - MD [facility] 02-08-2016 ([id number]) Ecg routine ecg w/least 12 01-30-2016 - MD Jose [facility] lds w/i&r 01-30-2016 ([id number]) Follow Up Appt 6 weeks 01-30-2016 - MD [facility] 01-30-2016 ([id number]) INR in Platelet poor plasma 01-30-2016 - MD Pauline [facility] by Coagulation assay 01-30-2016 ([id number]) Left Heart Cath 01-30-2016 - MD [facility] 05-21-2016 ([id number]) MMM 01-30-2016 - MD [facility] 01-30-2016 ([id number]) Us abdominal real time 01-30-2016 - MD [facility] w/image limited 02-08-2016 ([id number]) *BMP 01-30-2016 - MD [facility] 01-30-2016 ([id number]) CBC W Auto Differential 01-30-2016 - MD [facility] panel - Blood 01-30-2016 ([id number]) Chest x-ray 01-30-2016 - MD [facility] 02-08-2016 ([id number]) Coagulation factor 01-30-2016 - MD [facility] induced.INR assay in 01-30-2016 ([id number]) platelet poor plasma Echo exam of abdomen 01-30-2016 - MD [facility] 02-08-2016 ([id number]) Electrocardiogram, complete 01-30-2016 - MD Pauline [facility] 01-30-2016 ([id number]) Follow Up Appt 6 weeks 01-30-2016 - MD [facility] 01-30-2016 ([id number]) Left Heart Cath 01-30-2016 - MD [facility] 05-21-2016 ([id number]) MMM 01-30-2016 - MD [facility] 01-30-2016 ([id number]) Follow Up Appt 3 months 01-23-2016 - [facility] 11-17-2016 PA-C ([id number]) Pacer Clinic 01-23-2016 - [facility] 11-17-2016 PA-C ([id number]) Prgrmng dev eval 01-23-2016 - [facility] implantable in persn 1 ld 01-23-2016 PA-C ([id number] ) dfb Chest x-ray 01-23-2016 - Melany Khanna [facility] 11-17-2016 PA-C Service, [employer] ([id number]) Ecg routine ecg w/least 12 01-23-2016 - Melany Khanna [facility] w/i&r 11-17-2016 PA-C Service, [employer] ([phone]) Icd device prog eval, 1 01-23-2016 - Pauline Tim[facility] sngl 01-23-2016 PA-C ([id number]) *Hepatic Function Panel 11-05-2015 - MD [facility] 11-20-2015 ([id number]) Lipid 1996 panel - Serum or 11-05-2015 - Johan Perry MD [facility] Plasma 11-20-2015 ([id number]) *Hepatic Function Panel 11-05-2015 - MD [facility] 11-20-2015 ([id number]) Lipid panel [AGGREGATE] 11-05-2015 - MD [facility] 11-20-2015 ([id number]) Follow Up Appt 3 months 10-18-2015 - Jorge [facility] 02-08-2016 ([id number]) Pacer Clinic 10-18-2015 - [facility] 02-08-2016 ([id number]) Prgrmng dev eval 10-18-2015 - [facility] implantable in persn 1 ld 10-18-2015 ([id number] ) dfb Follow Up Appt 3 months 10-18-2015 - [facility] 02-08-2016 ([id number]) Icd device prog eval, 1 10-18-2015 - [facility] sngl 10-18-2015 ([id number]) Pacer Clinic 10-18-2015 - [facility] 02-08-2016 ([id number]) Follow Up Appt 3 months 07-18-2015 - MD [facility] 02-08-2016 ([id number]) Pacer Clinic 07-18-2015 - MD Pauline [facility] 02-08-2016 ([id number]) Prgrmng dev eval 07-18-2015 - MD [facility] implantable in persn 1 ld 07-18-2015 ([id number] ) dfb Follow Up Appt 3 months 07-18-2015 - MD Maxim [facility] 02-08-2016 ([id number]) Icd device prog eval, 1 07-18-2015 - MD Maxim [facility] sngl 02-08-2016 ([id number]) Pacer Clinic 07-18-2015 - MD Pauline [facility] 02-08-2016 ([id number]) FAMILY LIFE COUNSELOR 07-03-2015 - MD Pauline [facility] 07-03-2015 ([id number]) Follow Up Appt 6 months 07-03-2015 - MD [facility] 07-03-2015 ([id number]) FAMILY LIFE COUNSELOR 07-03-2015 - Johan Perry MD [facility] 07-03-2015 ([id number]) Follow Up Appt 6 months 07-03-2015 - MD Maxim [facility] 07-03-2015 ([id number]) *Hepatic Function Panel 06-20-2015 - Melany Khanna [facility] 06-20-2015 PA-C ([id number]) Lipid 1996 panel - Serum or 06-20-2015 - Melany Khanna [facility] Plasma 06-20-2015 PA-C ([id number]) *Hepatic Function Panel 06-20-2015 - Melany Kahnna [facility] 06-20-2015 PA-C ([id number]) Lipid panel [AGGREGATE] 06-20-2015 - Melany Khanna [facility] 06-20-2015 PA-C ([id number]) Follow Up Appt 3 months 04-13-2015 - MD [facility] 02-08-2016 ([id number]) Pacer Clinic 04-13-2015 - Johan Perry MD [facility] 02-08-2016 ([id number]) Prgrmng dev eval 04-13-2015 - MD Pauline [facility] implantable in persn 1 ld 04-14-2015 ([id number] ) dfb Follow Up Appt 3 months 04-13-2015 - MD [facility] 02-08-2016 ([id number]) Icd device prog eval, 1 04-13-2015 - MD [facility] sngl 04-14-2015 ([id number]) Pacer Clinic 04-13-2015 - MD Pauline [facility] 02-08-2016 ([id number]) Us abdominal real time 04-11-2015 - MD Pauline [facility] w/image limited 04-12-2015 ([id number]) Echo exam of abdomen 04-11-2015 - MD [facility] 04-12-2015 ([id number]) External Counterpulsation 04-06-2015 - [facility] Therapy 11-17-2016 PA-C ([id number]) Prgrmng dev eval 04-06-2015 - Juan Timmons [facility] implantable in persn 1 ld 11-17-2016 PA-C [employer] ([id number]) dfb FAMILY LIFE COUNSELOR 03-29-2015 - [facility] 03-29-2015 PA-C ([id number]) Follow Up Appt 3 months 03-29-2015 - Melany Khanna [facility] 03-29-2015 PA-C ([id number]) FAMILY LIFE COUNSELOR 03-29-2015 - Melany Khanna [facility] 03-29-2015 PA-C ([id number]) Follow Up Appt 3 months 03-29-2015 - Melany Khanna [facility] 03-29-2015 PA-C ([id number]) Follow Up Appt 3 months 01-05-2015 - Melany Khanna [facility] 03-05-2015 PA-C ([id number]) Pacer Clinic 01-05-2015 - [facility] 03-05-2015 PA-C ([id number]) Prgrmng dev eval 01-05-2015 - [facility] implantable in persn 1 ld 01-08-2015 PA-C ([id number] ) dfb Follow Up Appt 3 months 01-05-2015 - Melany Khanna [facility] 03-05-2015 PA-C ([id number]) Icd device prog eval, 1 01-05-2015 - Melany Khanna, [facility] sngl 01-08-2015 PA-C ([id number]) Pacer Clinic 01-05-2015 - Melany Khanna, [facility] 03-05-2015 PA-C ([id number]) Cardiac Rehab 12-27-2014 - MD [facility] 03-05-2015 ([id number]) Documentation of current 12-27-2014 - MD [facility] medications 12-28-2014 ([id number]) Follow Up Appt 3 months 12-27-2014 - MD Maxim [facility] 12-27-2014 ([id number]) MMM 12-27-2014 - MD Pauline [facility] 12-27-2014 ([id number]) Pedal pulse taking 12-27-2014 - MD [facility] 12-28-2014 ([id number]) Cardiac Rehab 12-27-2014 - MD Paul[facility] 03-05-2015 ([id number]) Documentation of current 12-27-2014 - Johan Perry MD [facility] medications 12-28-2014 ([id number]) Follow Up Appt 3 months 12-27-2014 - MD Maxim [facility] 12-27-2014 ([id number]) MMM 12-27-2014 - Johan Perry MD [facility] 12-27-2014 ([id number]) Pedal pulse taking 12-27-2014 - MD [facility] 12-28-2014 ([id number]) Follow Up BP Check 12-11-2014 - Melany Khanna [facility] 12-11-2014 PA-C ([id number]) Left Heart Cath 12-11-2014 - MD Pauline [facility] 03-05-2015 ([id number]) Follow Up BP Check 12-11-2014 - Melany Khanna [facility] [place] [facility] 12-11-2014 PA-C ([id number]) Left Heart Cath 12-11-2014 - MD Paul[facility] 03-05-2015 ([id number]) *BMP 12-06-2014 - [facility] 12-06-2014 PA-C ([id number]) Documentation of current 12-06-2014 - [facility] 12-07-2014 PA-C ([id number]) Follow Up Appt Other 12-06-2014 - Melany Khanna [facility] 12-06-2014 PA-C ([id number]) *BMP 12-06-2014 - [facility] 12-06-2014 PA-C ([id number]) Documentation of current 12-06-2014 - Ale[facility] 12-07-2014 PA-C ([id number]) Follow Up Appt Other 12-06-2014 - Melany Khanna [facility] 12-06-2014 PA-C ([id number]) Lipid 1996 panel - Serum or 11-28-2014 - Melany Khanna [place] [facility] Plasma 12-21-2014 PA-C ([id number]) Lipid panel [AGGREGATE] 11-28-2014 - Melany Khanna [facility] 12-21-2014 PA-C ([id number]) Documentation of current 11-03-2014 - Johan Perry MD [facility] medications 11-04-2014 ([id number]) Follow Up Appt 6 months 11-03-2014 - MD [facility] 11-03-2014 ([id number]) MMM 11-03-2014 - MD [facility] 11-03-2014 ([id number]) Pedal pulse taking 11-03-2014 - MD [facility] 11-04-2014 ([id number]) Preoperative cardiovascular 11-03-2014 - [facility] examination 12-25-2014 ([id number]) Documentation of current 11-03-2014 - Johan Perry MD [facility] medications 11-04-2014 ([id number]) Follow Up Appt 6 months 11-03-2014 - MD [facility] 11-03-2014 ([id number]) MMM 11-03-2014 - MD [facility] 11-03-2014 ([id number]) Pedal pulse taking 11-03-2014 - MD [facility] 11-04-2014 ([id number]) Preoperative cardiovascular 11-03-2014 - [place] examination 12-25-2014 [employer] ([phone]) [facility] 09-27-2014 - [facility] 09-27-2014 PA-C ([id number]) Documentation of current 09-27-2014 - Alejandro Timmons [facility] medications 09-28-2014 PA-C ([id number]) Ecg routine ecg w/least 12 09-27-2014 - [facility] lds w/i&r 11-03-2014 PA-C Johan Perry MD ([id number]) Follow Up Appt 3 months 09-27-2014 - MD [facility] 11-03-2014 ([id number]) Follow Up Appt 6 months 09-27-2014 - Pauline Timmons [facility] 09-27-2014 PA-C ([id number]) Pacer Clinic 09-27-2014 - MD [facility] 11-03-2014 ([id number]) Pedal pulse taking 09-27-2014 - Melany Khanna [facility] [place] [facility] 09-28-2014 PA-C ([id number]) Prgrmng dev eval 09-27-2014 - Johan Perry MD [facility] implantable in persn 1 ld 09-28-2014 ([id number] ) dfb FAMILY LIFE COUNSELOR 09-27-2014 - [facility] 09-27-2014 PA-C ([id number]) Documentation of current 09-27-2014 - [facility] 09-28-2014 PA-C ([id number]) Follow Up Appt 3 months 09-27-2014 - Johan Perry MD [facility] 11-03-2014 ([id number]) Follow Up Appt 6 months 09-27-2014 - Melany Khanna [facility] 09-27-2014 PA-C ([id number]) Icd device prog eval, 1 09-27-2014 - Johan Perry MD [facility] sngl 09-28-2014 ([id number]) Pacer Clinic 09-27-2014 - Johan Perry MD [facility] 11-03-2014 ([id number]) Pedal pulse taking 09-27-2014 - Melany Khanna [facility] 09-28-2014 PA-C ([id number]) Pulse (Heart Rate) 09-27-2014 - Melany Khanna [facility] 11-03-2014 PA-C Johan Perry MD ([id number]) *Hepatic Function Panel 07-28-2014 - Johan Perry MD [facility] 08-25-2014 ([id number]) Lipid 1996 panel - Serum or 07-28-2014 - Johan Perry MD [facility] Plasma 08-25-2014 ([id number]) *Hepatic Function Panel 07-28-2014 - Johan Perry MD [facility] 08-25-2014 ([id number]) Lipid panel [AGGREGATE] 07-28-2014 - Johan Perry MD [facility] 08-25-2014 ([id number]) Follow Up Appt 3 months 06-12-2014 - Melany Khanna [facility] 09-15-2014 PA-C ([id number]) Pacer Clinic 06-12-2014 - [facility] 09-15-2014 PA-C ([id number]) Prgrmng dev eval 06-12-2014 - [facility] implantable in persn 1 ld 06-13-2014 PA-C ([id number] ) dfb Follow Up Appt 3 months 06-12-2014 - Melany Khanna [facility] 09-15-2014 PA-C ([id number]) Icd device prog eval, 1 06-12-2014 - Melany Khanna [facility]l 06-13-2014 PA-C ([id number]) Pacer Clinic 06-12-2014 - [facility] 09-15-2014 PA-C ([id number]) Follow Up Appt 3 months 03-14-2014 - Johan Perry MD [facility] 09-15-2014 ([id number]) Follow Up Appt 6 months 03-14-2014 - MD Maxim [facility] 03-14-2014 ([id number]) [facility] 03-14-2014 - Johan Perry MD [place] [facility] 03-14-2014 ([id number]) Pacer Clinic 03-14-2014 - MD Pauline [facility] 09-15-2014 ([id number]) Prgrmng dev eval 03-14-2014 - Johan Perry MD [place] [facility] implantable in persn 1 ld 03-14-2014 ([id number] ) dfb Follow Up Appt 3 months 03-14-2014 - Johan Perry MD [facility] 09-15-2014 ([id number]) Follow Up Appt 6 months 03-14-2014 - MD Maxim [facility] 03-14-2014 ([id number]) Icd device prog eval, 1 03-14-2014 - Johan Perry MD [facility] sn 03-14-2014 ([id number]) [facility] 03-14-2014 - Johan Perry MD [place] [facility] 03-14-2014 ([id number]) Pacer Clinic 03-14-2014 - Johan Perry MD [facility] 09-15-2014 ([id number]) *Hepatic Function Panel 01-28-2014 - MD [facility] 02-06-2014 ([id number]) Lipid 1996 panel - Serum or 01-28-2014 - Johan Perry MD [facility] Plasma 02-06-2014 ([id number]) *Hepatic Function Panel 01-28-2014 - MD Maxim [facility] 02-06-2014 ([id number]) Lipid panel [AGGREGATE] 01-28-2014 - MD Maxim [facility] 02-06-2014 ([id number]) Follow Up Appt 2 months 12-16-2013 - MD [facility] 09-15-2014 ([id number]) Pacer Clinic 12-16-2013 - Johan Perry MD [place] [facility] 09-15-2014 ([id number]) Prgrmng dev eval 12-16-2013 - MD [facility] implantable in persn 1 ld 09-15-2014 ([id number] ) dfb Follow Up Appt 2 months 12-16-2013 - MD Maxim [facility] 09-15-2014 ([id number]) Icd device prog eval, 1 12-16-2013 - MD Maxim [facility] sngl 09-15-2014 ([id number]) Pacer Clinic 12-16-2013 - Johan Perry MD [facility] 09-15-2014 ([id number]) Follow Up Appt 3 months 09-15-2013 - MD [facility] 09-15-2014 ([id number]) Pacer Clinic 09-15-2013 - Johan Perry MD [facility] 09-15-2014 ([id number]) Prgrmg eval implantable in 09-15-2013 - MD Jose [facility] prsn dual lead dfb 09-15-2013 ([id number]) Follow Up Appt 3 months 09-15-2013 - MD [facility] 09-15-2014 ([id number]) Icd device progr eval, dual 09-15-2013 - Johan Perry MD [facility] 09-15-2013 ([id number]) Pacer Clinic 09-15-2013 - MD [facility] 09-15-2014 ([id number]) FAMILY LIFE COUNSELOR 09-06-2013 - Melany Khanna [facility] 09-06-2013 PA-C ([id number]) Follow Up Appt 6 months 09-06-2013 - Melany Khanna [facility] 09-06-2013 PA-C ([id number]) FAMILY LIFE COUNSELOR 09-06-2013 - Melany [facility]anna[facility] 09-06-2013 PA-C ([id number]) Follow Up Appt 6 months 09-06-2013 - Melany Khanna [facility] 09-06-2013 PA-C ([id number]) *Hepatic Function Panel 07-28-2013 - MD Maxim [facility] 08-09-2013 ([id number]) Lipid 1996 panel - Serum or 07-28-2013 - Johan Perry MD [facility] Plasma 08-09-2013 ([id number]) *Hepatic Function Panel 07-28-2013 - MD [facility] 08-09-2013 ([id number]) Lipid panel [AGGREGATE] 07-28-2013 - MD [facility] 08-09-2013 ([id number]) Follow Up Appt 3 months 06-08-2013 - MD Maxim [facility] 08-25-2013 ([id number]) Pacer Clinic 06-08-2013 - MD [facility] 08-25-2013 ([id number]) Prgrmng dev eval 06-08-2013 - MD [facility] implantable in persn 1 ld 06-08-2013 ([id number] ) dfb Follow Up Appt 3 months 06-08-2013 - MD [facility] 08-25-2013 ([id number]) Icd device prog eval, 1 06-08-2013 - MD Maxim [facility] sngl 06-08-2013 ([id number]) Pacer Clinic 06-08-2013 - MD Pauline [facility] 08-25-2013 ([id number]) Follow Up Appt 3 months 03-09-2013 - MD Maxim [facility] 05-17-2013 ([id number]) Pacer Clinic 03-09-2013 - MD [facility] 05-17-2013 ([id number]) Prgrmng dev eval 03-09-2013 - MD [facility] implantable in persn 1 ld 03-09-2013 ([id number] ) dfb Follow Up Appt 3 months 03-09-2013 - MD Maxim [facility] 05-17-2013 ([id number]) Pacer Clinic 03-09-2013 - MD [facility] 05-17-2013 ([id number]) Ecg routine ecg w/least 12 03-08-2013 - MD Jose [facility] lds w/i&r 05-17-2013 ([id number]) Follow Up Appt 6 months 03-08-2013 - MD Maxim [facility] 05-17-2013 ([id number]) Icd device prog eval, 1 03-08-2013 - MD Maxim [facility] sngl 05-17-2013 ([id number]) MMM 03-08-2013 - MD [facility] 05-17-2013 ([id number]) Electrocardiogram, complete 03-08-2013 - MD Pauline [facility] 05-17-2013 ([id number]) Follow Up Appt 6 months 03-08-2013 - MD Maxim [facility] 05-17-2013 ([id number]) MMM 03-08-2013 - MD [facility] 05-17-2013 ([id number]) *Hepatic Function Panel 01-28-2013 - MD [facility] 02-04-2013 ([id number]) Lipid 1996 panel - Serum or 01-28-2013 - MD Pauline [facility] Plasma 02-04-2013 ([id number]) *Hepatic Function Panel 01-28-2013 - MD [facility] 02-04-2013 ([id number]) Lipid panel [AGGREGATE] 01-28-2013 - MD Maxim [facility] 02-04-2013 ([id number]) Follow Up Appt 3 months 12-08-2012 - MD [facility] 05-17-2013 ([id number]) Pacer Clinic 12-08-2012 - MD Pauline [facility] 05-17-2013 ([id number]) Prgrmng dev eval 12-08-2012 - MD [facility] implantable in persn 1 ld 12-08-2012 ([id number] ) dfb Follow Up Appt 3 months 12-08-2012 - MD Maxim [facility] 05-17-2013 ([id number]) Icd device prog eval, 1 12-08-2012 - [facility] 12-08-2012 ([id number]) Pacer Clinic 12-08-2012 - [facility] 05-17-2013 ([id number]) Follow Up Appt 6 months 11-25-2012 - MD [facility] 11-25-2012 ([id number]) [facility] 11-25-2012 - Johan Perry MD [facility] 11-25-2012 ([id number]) Follow Up Appt 6 months 11-25-2012 - [facility] 11-25-2012 ([id number]) [facility] 11-25-2012 - Johan Perry MD [facility] 11-25-2012 ([id number]) Follow Up Appt 3 months 09-03-2012 - MD [facility] 05-17-2013 ([id number]) Pacer Clinic 09-03-2012 - MD [facility] 05-17-2013 ([id number]) Prgrmng dev eval 09-03-2012 - MD [facility] implantable in persn 1 ld 09-03-2012 ([id number] ) dfb Follow Up Appt 3 months 09-03-2012 - MD [facility] 05-17-2013 ([id number]) Icd device prog eval, 1 09-03-2012 - Johan Perry MD [facility] 09-03-2012 ([id number]) Pacer Clinic 09-03-2012 - Johan Perry MD [facility] 05-17-2013 ([id number]) *BMP 09-01-2012 - Rahul [facility] 05-17-2013 Héctor SIMMONS ([id number]) *Hepatic Function Panel 09-01-2012 - Rahul W [facility] 05-17-2013 Héctor SIMMONS ([id number]) Lipid 1996 panel - Serum or 09-01-2012 - Rahul W [facility] Plasma 05-17-2013 Héctor SIMMONS ([id number]) Magnesium [Mass/volume] in 09-01-2012 - [facility] Serum or Plasma 05-17-2013 H[facility]ctor SIMMONS ([id number]) *BMP 09-01-2012 - Rahul W [facility] 05-17-2013 H[facility]ctor SIMMONS ([id number]) *Hepatic Function Panel 09-01-2012 - Rahul W [facility] 05-17-2013 H[facility]ctor SIMMONS ([id number]) Lipid panel [AGGREGATE] 09-01-2012 - Rahul W [facility] 05-17-2013 Héctor SIMMONS ([id number]) Magnesium 09-01-2012 - [facility] 05-17-2013 Héctor SMIMONS ([id number]) Follow Up Appt 6 months 03-04-2012 - Rahul W [facility] 03-04-2012 Héctor SIMMONS ([id number]) Follow Up Appt 6 months 03-04-2012 - Rahul W [facility] 03-04-2012 Héctor SIMMONS ([id number]) *Hepatic Function Panel 02-04-2012 - Rahul W [facility] 02-11-2012 Héctor SIMMONS ([id number]) Lipid 1996 panel - Serum or 02-04-2012 - Rahul W [facility] Plasma 02-11-2012 Héctor SIMMONS ([id number]) *Hepatic Function Panel 02-04-2012 - Rahul W [facility] 02-11-2012 Héctor SIMMONS ([id number]) Lipid panel [AGGREGATE] 02-04-2012 - Rahul W [facility] 02-11-2012 Héctor SIMMONS ([id number]) Follow Up Appt 4 months 11-24-2011 - Rahul W [facility] 11-24-2011 Héctor SIMMONS ([id number]) Follow Up Appt 4 months 11-24-2011 - Rahul W [facility] 11-24-2011 Héctor SIMMONS ([id number]) *Hepatic Function Panel 10-27-2011 - Rahul W [facility] 10-27-2011 Héctor SIMMONS ([id number]) Lipid 1996 panel - Serum or 10-27-2011 - Rahul [facility] Plasma 10-27-2011 Héctor SIMMONS ([id number]) *Hepatic Function Panel 10-27-2011 - Rahul W [facility] 10-27-2011 Héctor SIMMONS ([id number]) Lipid panel [AGGREGATE] 10-27-2011 - Rahul W [facility] 10-27-2011 Héctor SIMMONS ([id number]) *BMP 10-16-2011 - [facility] 10-27-2011 H[facility]ctor SIMMONS ([id number]) *BMP 10-16-2011 - [facility]ul W [facility] 10-27-2011 Héctor SIMMONS ([id number]) Ecg routine ecg w/least 08-26-2011 - [facility]ul [facility] lds w/i&r 08-26-2011 Héctor SIMMONS ([id number]) Follow Up Appt 3 months 08-26-2011 - Rahul W [facility] 08-26-2011 Héctor SIMMONS ([id number]) Electrocardiogram, complete 08-26-2011 - Rahul W [facility] 08-26-2011 Héctor SIMMONS ([id number]) Follow Up Appt 3 months 08-26-2011 - Rahul W [facility] 08-26-2011 Héctor SIMMONS ([id number]) Ecg routine ecg w/least 12 06-27-2011 - [facility] lds w/i&r 06-27-2011 Héctor SIMMONS ([id number]) Follow Up Appt 2 months 06-27-2011 - Rahul Allen [facility] 06-27-2011 Héctor SIMMONS ([id number]) Follow Up Appt 2 months 06-27-2011 - Rahul Allen [facility] 06-27-2011 H[facility]ctor SIMMONS ([id number]) Lipid panel [AGGREGATE] 06-27-2011 - Rahul Allen [facility] 06-27-2011 Héctor SIMMONS ([id number]) Follow Up Appt 4 months 06-10-2011 - Rahul Allen [facility] 06-10-2011 Héctor SIMMONS ([id number]) Follow Up Appt 4 months 06-10-2011 - Rahul Allen [facility] 06-10-2011 Héctor SIMMONS ([id number]) Implantation of automatic 07-16-2010 [facility] cardiac defibrillator ([id number]) Placement of stent in 07-16-2010 [facility] coronary artery ([id number]) Implantation of automatic 07-16-2010 [facility] cardiac defibrillator Service, [facility] ([id number]) Plan of Treatment Plan Description Date Location COLONOSCOPY COLONOSCOPY 01-07-2028 - [facility] 01-07-2028 ([id number]) COLORECTAL CANCER COLORECTAL CANCER 01-07-2028 - [facility] SCREENING,SEE MODIFIER SCREENING,SEE MODIFIER 01-07-2028 ([id number]) DTAP,TDAP,TD (3 - Td) DTAP,TDAP,TD (3 - Td) 10-17-2027 - [facility] 10-17-2027 ([id number]) ADVANCE DIRECTIVE ADVANCE DIRECTIVE 10-26-2024 - [facility] DISCUSSION DISCUSSION 10-26-2024 ([id number]) HEMOGLOBIN/HEMATOCRIT HEMOGLOBIN/HEMATOCRIT 12-08-2020 - [facility] 12-08-2020 ([id number]) DIABETIC FOOT EXAM DIABETIC FOOT EXAM 11-26-2020 - [facility] 11-26-2020 ([id number]) Comment: Postponed from 07/16/2019 (C urrent Illness) ANNUAL PCP TEAM ANNUAL PCP TEAM 10-26-2020 - [facility] CHRONIC DISEASE VISIT CHRONIC DISEASE VISIT 10-26-2020 ([id number]) BP CONTROLLED BP CONTROLLED 10-26-2020 - [facility] (<130/80) (<130/80) 10-26-2020 ([id number]) SHINGRIX VACCINE (1 of SHINGRIX VACCINE (1 of 10-26-2020 - [facility] Clinic 2) 2) 10-26-2020 ([id number]) Comment: Postponed from 10/20/1995 (D eclined at this time) URINE ALBUMIN:CREATININE URINE ALBUMIN:CREATININE 10-13-2020 - [facility] RATIO RATIO 10-13-2020 ([id number]) LDL CHOLESTEROL LDL CHOLESTEROL 10-13-2020 - [facility] 10-13-2020 ([id number]) SERUM CREATININE SERUM CREATININE 10-13-2020 - [facility] 10-13-2020 ([id number]) DILATED RETINAL EXAM DILATED RETINAL EXAM 08-10-2020 - [facility] 08-10-2020 ([id number]) HBA1C HBA1C 04-15-2020 - [facility] 04-15-2020 ([id number]) HEMOGLOBIN/HEMATOCRIT HEMOGLOBIN/HEMATOCRIT 01-15-2020 - [facility] 01-15-2020 ([id number]) INFLUENZA (#1) INFLUENZA (#1) 2019 - [facility] 11-29-2019 ([id number]) Appointment Appointment 07-07-2017 - [facility] 07-07-2017 Group ([id number]) Appointment Appointment 05-04-2017 - [facility] 05-04-2017 Group ([id number]) Follow Up Appt 3 months Follow Up Appt 3 months 01-30-2017 - [facility] 02-02-2017 Group ([id number]) Pacer Clinic Pacer Clinic 01-30-2017 - [facility] 02-02-2017 Group ([id number]) Appointment Appointment 01-30-2017 - [facility] 01-30-2017 Group ([id number]) Appointment Appointment 01-01-2017 - [facility] 01-01-2017 Group ([id number]) FAMILY LIFE COUNSELOR FAMILY LIFE COUNSELOR 01-01-2017 - [facility] 01-01-2017 Group ([id number]) Follow Up Appt 6 months Follow Up Appt 6 months 01-01-2017 - [facility] 01-01-2017 Group ([id number]) Appointment Appointment 12-24-2016 - [facility] 12-24-2016 Group ([id number]) *Hepatic Function Panel *Hepatic Function Panel 11-18-2016 - [facility] 05-22-2016 Group ([id number]) *Lipid Profile CC PCP *Lipid Profile CC PCP 11-18-2016 - [facility] 05-22-2016 Group ([id number]) Follow Up Appt 3 months Follow Up Appt 3 months 10-30-2016 - [facility] 12-17-2016 Group ([id number]) Pacer Clinic Pacer Clinic 10-30-2016 - [facility] 12-17-2016 Group ([id number]) Appointment Appointment 10-30-2016 - [facility] 10-30-2016 Group ([id number]) Appointment Appointment 10-30-2016 - [facility] 10-30-2016 Group ([id number]) Follow Up Appt 3 months Follow Up Appt 3 months 10-30-2016 - [facility] 10-30-2016 Group ([id number]) Pacer Clinic Pacer Clinic 10-30-2016 - [facility] 10-30-2016 Group ([id number]) Appointment Appointment 09-18-2016 - [facility] 09-18-2016 Group ([id number]) Appointment Appointment 09-04-2016 - [facility] 09-04-2016 Group ([id number]) Appointment Appointment 09-04-2016 - [facility] 09-04-2016 Group ([id number]) Follow Up Appt 3 months Follow Up Appt 3 months 09-04-2016 - [facility] 12-17-2016 Group ([id number]) MMM MMM 09-04-2016 - [facility] 12-17-2016 Group ([id number]) Follow Up Appt 3 months Follow Up Appt 3 months 09-04-2016 - [facility] 09-04-2016 Group ([id number]) MMM MMM 09-04-2016 - [facility] 09-04-2016 Group ([id number]) Follow Up Appt 3 months Follow Up Appt 3 months 07-30-2016 - [facility] 11-17-2016 Group ([id number]) Pacer Clinic Pacer Clinic 07-30-2016 - [facility] 11-17-2016 Group ([id number]) Appointment Appointment 07-30-2016 - [facility] 07-30-2016 Group ([id number]) Follow Up Appt 3 months Follow Up Appt 3 months 07-30-2016 - [facility] 11-17-2016 Group ([id number]) Pacer Clinic Pacer Clinic 07-30-2016 - [facility] 11-17-2016 Group ([id number]) *BMP *BMP 06-19-2016 - [facility] 06-19-2016 Group ([id number]) Cardiac Rehab Cardiac Rehab 06-19-2016 - [facility] 11-17-2016 Group ([id number]) FAMILY LIFE COUNSELOR FAMILY LIFE COUNSELOR 06-19-2016 - [facility] 06-19-2016 Group ([id number]) Follow Up Appt 3 months Follow Up Appt 3 months 06-19-2016 - [facility] 11-17-2016 Group ([id number]) *Magnesium *Magnesium 06-19-2016 - [facility] 06-19-2016 Group ([id number]) Pacer Clinic Pacer Clinic 06-19-2016 - [facility] 11-17-2016 Group ([id number]) *BMP *BMP 06-19-2016 - [facility] 06-19-2016 Group ([id number]) Cardiac Rehab Cardiac Rehab 06-19-2016 - [facility] 11-17-2016 Group ([id number]) FAMILY LIFE COUNSELOR FAMILY LIFE COUNSELOR 06-19-2016 - [facility] 06-19-2016 Group ([id number]) Follow Up Appt 3 months Follow Up Appt 3 months 06-19-2016 - [facility] 11-17-2016 Group ([id number]) *Magnesium *Magnesium 06-19-2016 - [facility] 06-19-2016 Group ([id number]) Pacer Clinic Pacer Clinic 06-19-2016 - [facility] 11-17-2016 Group ([id number]) *Hepatic Function Panel *Hepatic Function Panel 05-21-2016 - [facility] 05-21-2016 Group ([id number]) *Lipid Profile CC PCP *Lipid Profile CC PCP 05-21-2016 - [facility] 05-21-2016 Group ([id number]) *Hepatic Function Panel *Hepatic Function Panel 05-21-2016 - [facility] 05-21-2016 Group ([id number]) *Lipid Profile CC PCP *Lipid Profile CC PCP 05-21-2016 - [facility] 05-21-2016 Group ([id number]) Follow Up Appt 3 months Follow Up Appt 3 months 04-30-2016 - [facility] 11-17-2016 Group ([id number]) Pacer Clinic Pacer Clinic 04-30-2016 - [facility] 11-17-2016 Group ([id number]) Follow Up Appt 3 months Follow Up Appt 3 months 04-30-2016 - [facility] 11-17-2016 Group ([id number]) Pacer Clinic Pacer Clinic 04-30-2016 - [facility] 11-17-2016 Group ([id number]) Carotid duplex Carotid duplex 03-14-2016 - [facility] 03-14-2016 Group ([id number]) Follow Up Appt 3 months Follow Up Appt 3 months 03-14-2016 - [facility] 03-14-2016 Group ([id number]) *PT/INR *PT/INR 03-14-2016 - [facility] 03-14-2016 Group ([id number]) MMM MMM 03-14-2016 - [facility] 03-14-2016 Group ([id number]) Carotid duplex Carotid duplex 03-14-2016 - [facility] 03-14-2016 Group ([id number]) *PT/INR *PT/INR 03-14-2016 - [facility] 03-14-2016 Group ([id number]) Follow Up Appt 3 months Follow Up Appt 3 months 03-14-2016 - [facility] 03-14-2016 Group ([id number]) MMM MMM 03-14-2016 - [facility] 03-14-2016 Group ([id number]) *BMP *BMP 01-30-2016 - [facility] 01-30-2016 Group ([id number]) *CBC without Diff *CBC without Diff 01-30-2016 - [facility] 01-30-2016 Group ([id number]) X-Ray, Chest, PA & Lateral X-Ray, Chest, PA & Lateral 01-30-2016 - [facility] 02-08-2016 Group ([id number]) EKG (In office) EKG (In office) 01-30-2016 - [facility] 01-30-2016 Group ([id number]) Follow Up Appt 6 weeks Follow Up Appt 6 weeks 01-30-2016 - [facility] 01-30-2016 Group ([id number]) *PT/INR *PT/INR 01-30-2016 - [facility] 01-30-2016 Group ([id number]) Left Heart Cath Left Heart Cath 01-30-2016 - [facility] 01-30-2016 Group ([id number]) MMM MMM 01-30-2016 - [facility] 01-30-2016 Group ([id number]) US Abdominal (aneurysm US Abdominal (aneurysm 01-30-2016 - [facility]) screening) 01-30-2016 Group ([id number]) *BMP *BMP 01-30-2016 - [facility] 01-30-2016 Group ([id number]) *CBC without Diff *CBC without Diff 01-30-2016 - [place] [facility] 01-30-2016 Group ([id number]) X-Ray, Chest, PA & Lateral X-Ray, Chest, PA & Lateral 01-30-2016 - [facility] 02-08-2016 Group ([id number]) *PT/INR *PT/INR 01-30-2016 - [facility] 01-30-2016 Group ([id number]) US Abdominal (aneurysm US Abdominal (aneurysm 01-30-2016 - [facility]) screening) 01-30-2016 Group ([id number]) EKG (In office) EKG (In office) 01-30-2016 - [facility] 01-30-2016 Group ([id number]) Follow Up Appt 6 weeks Follow Up Appt 6 weeks 01-30-2016 - [facility] 01-30-2016 Group ([id number]) Left Heart Cath Left Heart Cath 01-30-2016 - [facility] 01-30-2016 Group ([id number]) MMM MMM 01-30-2016 - [facility] 01-30-2016 Group ([id number]) Follow Up Appt 3 months Follow Up Appt 3 months 01-23-2016 - [facility] 11-17-2016 Group ([id number]) Pacer Clinic Pacer Clinic 01-23-2016 - [facility] 11-17-2016 Group ([id number]) Follow Up Appt 3 months Follow Up Appt 3 months 01-23-2016 - [facility] 11-17-2016 Group ([id number]) Pacer Clinic Pacer Clinic 01-23-2016 - [facility] 11-17-2016 Group ([id number]) *Hepatic Function Panel *Hepatic Function Panel 11-05-2015 - [facility] 11-20-2015 Group ([id number]) *Lipid Profile CC PCP *Lipid Profile CC PCP 11-05-2015 - [facility] 11-20-2015 Group ([id number]) *Hepatic Function Panel *Hepatic Function Panel 11-05-2015 - [facility] 11-20-2015 Group ([id number]) *Lipid Profile CC PCP *Lipid Profile CC PCP 11-05-2015 - [facility] 11-20-2015 Group ([id number]) Follow Up Appt 3 months Follow Up Appt 3 months 10-18-2015 - [facility] 02-08-2016 Group ([id number]) Pacer Clinic Pacer Clinic 10-18-2015 - [facility] 02-08-2016 Group ([id number]) Follow Up Appt 3 months Follow Up Appt 3 months 10-18-2015 - [facility] 02-08-2016 Group ([id number]) Pacer Clinic Pacer Clinic 10-18-2015 - [facility] 02-08-2016 Group ([id number]) Follow Up Appt 3 months Follow Up Appt 3 months 07-18-2015 - [facility] 02-08-2016 Group ([id number]) Pacer Clinic Pacer Clinic 07-18-2015 - [facility] 02-08-2016 Group ([id number]) Follow Up Appt 3 months Follow Up Appt 3 months 07-18-2015 - [facility] 02-08-2016 Group ([id number]) Pacer Clinic Pacer Clinic 07-18-2015 - [facility] 02-08-2016 Group ([id number]) [facility] FAMILY LIFE COUNSELOR 07-03-2015 - [facility] 07-03-2015 Group ([id number]) Follow Up Appt 6 months Follow Up Appt 6 months 07-03-2015 - [facility] 07-03-2015 Group ([id number]) FAMILY LIFE COUNSELOR FAMILY LIFE COUNSELOR 07-03-2015 - [facility] 07-03-2015 Group ([id number]) Follow Up Appt 6 months Follow Up Appt 6 months 07-03-2015 - [facility] 07-03-2015 Group ([id number]) *Hepatic Function Panel *Hepatic Function Panel 06-20-2015 - [facility] 06-20-2015 Group ([id number]) *Lipid Profile CC PCP *Lipid Profile CC PCP 06-20-2015 - [facility] 06-20-2015 Group ([id number]) *Hepatic Function Panel *Hepatic Function Panel 06-20-2015 - [facility] 06-20-2015 Group ([id number]) *Lipid Profile CC PCP *Lipid Profile CC PCP 06-20-2015 - [facility] 06-20-2015 Group ([id number]) Follow Up Appt 3 months Follow Up Appt 3 months 04-13-2015 - [facility] 02-08-2016 Group ([id number]) Pacer Clinic Pacer Clinic 04-13-2015 - [facility] 02-08-2016 Group ([id number]) Follow Up Appt 3 months Follow Up Appt 3 months 04-13-2015 - [facility] 02-08-2016 Group ([id number]) Pacer Clinic Pacer Clinic 04-13-2015 - [facility] 02-08-2016 Group ([id number]) US Abdominal (aneurysm US Abdominal (aneurysm 04-11-2015 - [facility]) screening) 04-05-2015 Group ([id number]) US Abdominal (aneurysm US Abdominal (aneurysm 04-11-2015 - [facility]) screening) 04-05-2015 Group ([id number]) External Counterpulsation External Counterpulsation 04-06-2015 - [facility] [address] [facility], Therapy [address] [facility], 04-06-2015 Group ([id number]) [address], [place], [address], [place], [id number] External Counterpulsation External Counterpulsation 04-06-2015 - [facility] [address] [facility], Therapy [address] [facility], 02-08-2016 Group ([id number]) [address] [place], [place], [address] [place], [id number] FAMILY LIFE COUNSELOR FAMILY LIFE COUNSELOR 03-29-2015 - [facility] 03-29-2015 Group ([id number]) Follow Up Appt 3 months Follow Up Appt 3 months 03-29-2015 - [facility] 03-29-2015 Group ([id number]) FAMILY LIFE COUNSELOR FAMILY LIFE COUNSELOR 03-29-2015 - [facility] 03-29-2015 Group ([id number]) Follow Up Appt 3 months Follow Up Appt 3 months 03-29-2015 - [facility] 03-29-2015 Group ([id number]) Follow Up Appt 3 months Follow Up Appt 3 months 01-05-2015 - [facility] 03-05-2015 Group ([id number]) Pacer Clinic Pacer Clinic 01-05-2015 - [facility] 03-05-2015 Group ([id number]) Follow Up Appt 3 months Follow Up Appt 3 months 01-05-2015 - [facility] 03-05-2015 Group ([id number]) Pacer Clinic Pacer Clinic 01-05-2015 - [facility] 03-05-2015 Group ([id number]) Cardiac Rehab Cardiac Rehab 12-27-2014 - [facility] 03-05-2015 Group ([id number]) Follow Up Appt 3 months Follow Up Appt 3 months 12-27-2014 - [facility] 12-27-2014 Group ([id number]) MMM MMM 12-27-2014 - [facility] 12-27-2014 Group ([id number]) Cardiac Rehab Cardiac Rehab 12-27-2014 - [facility] 03-05-2015 Group ([id number]) Follow Up Appt 3 months Follow Up Appt 3 months 12-27-2014 - [facility] 12-27-2014 Group ([id number]) MMM MMM 12-27-2014 - [facility] 12-27-2014 Group ([id number]) Follow Up BP Check Follow Up BP Check 12-11-2014 - [place] [facility] 12-11-2014 Group ([id number]) Left Heart Cath Left Heart Cath 12-11-2014 - [facility] 12-11-2014 Group ([id number]) Follow Up BP Check Follow Up BP Check 12-11-2014 - [facility] 12-11-2014 Group ([id number]) Left Heart Cath Left Heart Cath 12-11-2014 - [facility] 12-11-2014 Group ([id number]) *BMP *BMP 12-06-2014 - [facility] 12-06-2014 Group ([id number]) Follow Up Appt Other Follow Up Appt Other 12-06-2014 - [facility] 12-06-2014 Group ([id number]) *BMP *BMP 12-06-2014 - [facility] 12-06-2014 Group ([id number]) Follow Up Appt Other Follow Up Appt Other 12-06-2014 - [facility] 12-06-2014 Group ([id number]) *Lipid Profile CC PCP *Lipid Profile CC PCP 11-28-2014 - [facility] 12-21-2014 Group ([id number]) *Lipid Profile CC PCP *Lipid Profile CC PCP 11-28-2014 - [facility] 12-21-2014 Group ([id number]) Follow Up Appt 6 months Follow Up Appt 6 months 11-03-2014 - [facility] 11-03-2014 Group ([id number]) MMM MMM 11-03-2014 - [facility] 11-03-2014 Group ([id number]) Follow Up Appt 6 months Follow Up Appt 6 months 11-03-2014 - [facility] 11-03-2014 Group ([id number]) MMM MMM 11-03-2014 - [facility] 11-03-2014 Group ([id number]) FAMILY LIFE COUNSELOR FAMILY LIFE COUNSELOR 09-27-2014 - [facility] 09-27-2014 Group ([id number]) EKG (In office) EKG (In office) 09-27-2014 - [facility] 09-27-2014 Group ([id number]) Follow Up Appt 3 months Follow Up Appt 3 months 09-27-2014 - [facility] 11-03-2014 Group ([id number]) Follow Up Appt 6 months Follow Up Appt 6 months 09-27-2014 - [facility] 09-27-2014 Group ([id number]) Pacer Clinic Pacer Clinic 09-27-2014 - [facility] 11-03-2014 Group ([id number]) FAMILY LIFE COUNSELOR [facility] 09-27-2014 - [facility] 09-27-2014 Group ([id number]) EKG (In office) EKG (In office) 09-27-2014 - [facility] 09-27-2014 Group ([id number]) Follow Up Appt 3 months Follow Up Appt 3 months 09-27-2014 - [facility] 11-03-2014 Group ([id number]) Follow Up Appt 6 months Follow Up Appt 6 months 09-27-2014 - [facility] 09-27-2014 Group ([id number]) Pacer Clinic Pacer Clinic 09-27-2014 - [facility] 11-03-2014 Group ([id number]) *Hepatic Function Panel *Hepatic Function Panel 07-28-2014 - [facility] 08-25-2014 Group ([id number]) *Lipid Profile CC PCP *Lipid Profile CC PCP 07-28-2014 - [facility] 08-25-2014 Group ([id number]) *Hepatic Function Panel *Hepatic Function Panel 07-28-2014 - [facility] 08-25-2014 Group ([id number]) *Lipid Profile CC PCP *Lipid Profile CC PCP 07-28-2014 - [facility] 08-25-2014 Group ([id number]) Follow Up Appt 3 months Follow Up Appt 3 months 06-12-2014 - [facility] 09-15-2014 Group ([id number]) Pacer Clinic Pacer Clinic 06-12-2014 - [facility] 09-15-2014 Group ([id number]) Follow Up Appt 3 months Follow Up Appt 3 months 06-12-2014 - [facility] 09-15-2014 Group ([id number]) Pacer Clinic Pacer Clinic 06-12-2014 - [facility] 09-15-2014 Group ([id number]) Follow Up Appt 3 months Follow Up Appt 3 months 03-14-2014 - [facility] 09-15-2014 Group ([phone]) Follow Up Appt 6 months Follow Up Appt 6 months 03-14-2014 - [facility] 03-14-2014 Group ([id number]) MMM MMM 03-14-2014 - [facility] 03-14-2014 Group ([id number]) Pacer Clinic Pacer Clinic 03-14-2014 - [facility] 09-15-2014 Group ([id number]) Follow Up Appt 3 months Follow Up Appt 3 months 03-14-2014 - [facility] 09-15-2014 Group ([id number]) Follow Up Appt 6 months Follow Up Appt 6 months 03-14-2014 - [facility] 03-14-2014 Group ([id number]) MMM MMM 03-14-2014 - [facility] 03-14-2014 Group ([id number]) Pacer Clinic Pacer Clinic 03-14-2014 - [facility] 09-15-2014 Group ([id number]) *Hepatic Function Panel *Hepatic Function Panel 01-28-2014 - [facility] 02-06-2014 Group ([id number]) *Lipid Profile CC PCP *Lipid Profile CC PCP 01-28-2014 - [facility] 02-06-2014 Group ([id number]) *Hepatic Function Panel *Hepatic Function Panel 01-28-2014 - [facility] 02-06-2014 Group ([id number]) *Lipid Profile CC PCP *Lipid Profile CC PCP 01-28-2014 - [facility] 02-06-2014 Group ([id number]) Follow Up Appt 2 months Follow Up Appt 2 months 12-16-2013 - [facility] 09-15-2014 Group ([id number]) Pacer Clinic Pacer Clinic 12-16-2013 - [facility] 09-15-2014 Group ([phone]) Follow Up Appt 2 months Follow Up Appt 2 months 12-16-2013 - [facility] 09-15-2014 Group ([id number]) Pacer Clinic Pacer Clinic 12-16-2013 - [facility] 09-15-2014 Group ([id number]) Follow Up Appt 3 months Follow Up Appt 3 months 09-15-2013 - [facility] 09-15-2014 Group ([id number]) Pacer Clinic Pacer Clinic 09-15-2013 - [facility] 09-15-2014 Group ([id number]) Follow Up Appt 3 months Follow Up Appt 3 months 09-15-2013 - [facility] 09-15-2014 Group ([id number]) Pacer Clinic Pacer Clinic 09-15-2013 - [facility] 09-15-2014 Group ([id number]) FAMILY LIFE COUNSELOR FAMILY LIFE COUNSELOR 09-06-2013 - [facility] 09-06-2013 Group ([id number]) Follow Up Appt 6 months Follow Up Appt 6 months 09-06-2013 - [facility] 09-06-2013 Group ([id number]) FAMILY LIFE COUNSELOR FAMILY LIFE COUNSELOR 09-06-2013 - [facility] 09-06-2013 Group ([id number]) Follow Up Appt 6 months Follow Up Appt 6 months 09-06-2013 - [facility] 09-06-2013 Group ([id number]) *Hepatic Function Panel *Hepatic Function Panel 07-28-2013 - [facility] 08-08-2013 Group ([id number]) *Lipid Profile CC PCP *Lipid Profile CC PCP 07-28-2013 - [facility] 08-08-2013 Group ([id number]) *Hepatic Function Panel *Hepatic Function Panel 07-28-2013 - [facility] 08-08-2013 Group ([id number]) *Lipid Profile CC PCP *Lipid Profile CC PCP 07-28-2013 - [facility] 08-08-2013 Group ([id number]) Follow Up Appt 3 months Follow Up Appt 3 months 06-08-2013 - [facility] 08-25-2013 Group ([id number]) Pacer Clinic Pacer Clinic 06-08-2013 - [facility] 08-25-2013 Group ([id number]) Follow Up Appt 3 months Follow Up Appt 3 months 06-08-2013 - [facility] 08-25-2013 Group ([id number]) Pacer Clinic Pacer Clinic 06-08-2013 - [facility] 08-25-2013 Group ([id number]) Follow Up Appt 3 months Follow Up Appt 3 months 03-09-2013 - [facility] 05-17-2013 Group ([id number]) Pacer Clinic Pacer Clinic 03-09-2013 - [facility] 05-17-2013 Group ([id number]) Follow Up Appt 3 months Follow Up Appt 3 months 03-09-2013 - [facility] 05-17-2013 Group ([id number]) Pacer Clinic Pacer Clinic 03-09-2013 - [facility] 05-17-2013 Group ([id number]) EKG (In office) EKG (In office) 03-08-2013 - [facility] 05-17-2013 Group ([id number]) Follow Up Appt 6 months Follow Up Appt 6 months 03-08-2013 - [facility] 05-17-2013 Group ([phone]) MMM MMM 03-08-2013 - [facility] 05-17-2013 Group ([id number]) EKG (In office) EKG (In office) 03-08-2013 - [facility] 05-17-2013 Group ([id number]) Follow Up Appt 6 months Follow Up Appt 6 months 03-08-2013 - [facility] 05-17-2013 Group ([id number]) MMM MMM 03-08-2013 - [facility] 05-17-2013 Group ([id number]) *Hepatic Function Panel *Hepatic Function Panel 01-28-2013 - [facility] 02-04-2013 Group ([id number]) *Lipid Profile *Lipid Profile 01-28-2013 - [facility] 02-04-2013 Group ([id number]) *Hepatic Function Panel *Hepatic Function Panel 01-28-2013 - [facility] 02-04-2013 Group ([id number]) *Lipid Profile *Lipid Profile 01-28-2013 - [facility] 02-04-2013 Group ([id number]) Follow Up Appt 3 months Follow Up Appt 3 months 12-08-2012 - [facility] 05-17-2013 Group ([id number]) Pacer [facility] 12-08-2012 - [facility] 05-17-2013 Group ([id number]) Follow Up Appt 3 months Follow Up Appt 3 months 12-08-2012 - [facility] 05-17-2013 Group ([id number]) Pacer [facility] 12-08-2012 - [facility] 05-17-2013 Group ([id number]) Follow Up Appt 6 months Follow Up Appt 6 months 11-25-2012 - [facility] 11-25-2012 Group ([id number]) MMM MMM 11-25-2012 - [facility] 11-25-2012 Group ([id number]) Follow Up Appt 6 months Follow Up Appt 6 months 11-25-2012 - [facility] 11-25-2012 Group ([id number]) MMM MMM 11-25-2012 - [facility] 11-25-2012 Group ([id number]) Follow Up Appt 3 months Follow Up Appt 3 months 09-03-2012 - [facility] 05-17-2013 Group ([id number]) Pacer [facility] 09-03-2012 - [facility] 05-17-2013 Group ([id number]) Follow Up Appt 3 months Follow Up Appt 3 months 09-03-2012 - [facility] 05-17-2013 Group ([id number]) Pacer [facility] 09-03-2012 - [facility] 05-17-2013 Group ([id number]) *BMP *BMP 09-01-2012 - [facility] 03-04-2012 Group ([id number]) *Hepatic Function Panel *Hepatic Function Panel 09-01-2012 - [facility] 05-17-2013 Group ([id number]) *Lipid Profile *Lipid Profile 09-01-2012 - [facility] 05-17-2013 Group ([id number]) *Magnesium *Magnesium 09-01-2012 - [facility] 05-17-2013 Group ([id number]) *BMP *BMP 09-01-2012 - [facility] 03-04-2012 Group ([id number]) *Hepatic Function Panel *Hepatic Function Panel 09-01-2012 - [facility] 05-17-2013 Group ([id number]) *Lipid Profile *Lipid Profile 09-01-2012 - [facility] 05-17-2013 Group ([id number]) *Magnesium *Magnesium 09-01-2012 - [facility] 05-17-2013 Group ([id number]) Follow Up Appt 6 months Follow Up Appt 6 months 03-04-2012 - [facility] 03-04-2012 Group ([id number]) Follow Up Appt 6 months Follow Up Appt 6 months 03-04-2012 - [facility] 03-04-2012 Group ([id number]) *Hepatic Function Panel *Hepatic Function Panel 02-04-2012 - [facility] 02-11-2012 Group ([id number]) *Lipid Profile *Lipid Profile 02-04-2012 - [facility] 02-11-2012 Group ([id number]) *Hepatic Function Panel *Hepatic Function Panel 02-04-2012 - [facility] 02-11-2012 Group ([id number]) *Lipid Profile *Lipid Profile 02-04-2012 - [facility] 02-11-2012 Group ([id number]) Follow Up Appt 4 months Follow Up Appt 4 months 11-24-2011 - [facility] 11-24-2011 Group ([id number]) Follow Up Appt 4 months Follow Up Appt 4 months 11-24-2011 - [facility] 11-24-2011 Group ([id number]) *Hepatic Function Panel *Hepatic Function Panel 10-29-2011 - [facility] 10-27-2011 Group ([id number]) *Lipid Profile *Lipid Profile 10-29-2011 - [facility] 10-27-2011 Group ([id number]) *Hepatic Function Panel *Hepatic Function Panel 10-29-2011 - [facility] 10-27-2011 Group ([id number]) *Lipid Profile *Lipid Profile 10-29-2011 - [facility] 10-27-2011 Group ([id number]) *BMP *BMP 10-16-2011 - [facility] 10-27-2011 Group ([id number]) *BMP *BMP 10-16-2011 - [facility] 10-27-2011 Group ([id number]) EKG (In office) EKG (In office) 08-26-2011 - [facility] 08-26-2011 Group ([id number]) Follow Up Appt 3 months Follow Up Appt 3 months 08-26-2011 - [facility] 08-26-2011 Group ([id number]) EKG (In office) EKG (In office) 08-26-2011 - [facility] 08-26-2011 Group ([id number]) Follow Up Appt 3 months Follow Up Appt 3 months 08-26-2011 - [facility] 08-26-2011 Group ([id number]) EKG (In office) EKG (In office) 06-27-2011 - [facility] 06-27-2011 Group ([id number]) Follow Up Appt 2 months Follow Up Appt 2 months 06-27-2011 - [facility] 06-27-2011 Group ([id number]) EKG (In office) EKG (In office) 06-27-2011 - [facility] 06-27-2011 Group ([id number]) Follow Up Appt 2 months Follow Up Appt 2 months 06-27-2011 - [facility] 06-27-2011 Group ([id number]) Follow Up Appt 4 months Follow Up Appt 4 months 06-10-2011 - [facility] 06-10-2011 Group ([id number]) Follow Up Appt 4 months Follow Up Appt 4 months 06-10-2011 - [facility] 06-10-2011 Group ([id number]) Patient education no information [facility] ([id number]) no information [facility] ([id number]) Immunizations Vaccine Notes Status Date Location Influenza Vaccine, influenza virus (completed) 01-06-2013 - [facility] Split-Non Spec vaccine, unspecified 01-06-2013 ([id number]) formulation Influenza Seasonal - influenza, high dose (completed) 01-14-2019 - [facility] High Dose - Age 65+ seasonal, 01-14-2019 ([id number]) preservative-free Influenza Seasonal - influenza, high dose (completed) 01-26-2018 - [facility] High Dose - Age 65+ seasonal, 01-26-2018 ([id number]) preservative-free Influenza Seasonal - influenza, high dose (completed) 01-19-2017 - [facility] High Dose - Age 65+ seasonal, 01-19-2017 ([id number]) preservative-free Influenza Seasonal - influenza, high dose (completed) 01-18-2016 - [facility] High Dose - Age 65+ seasonal, 01-18-2016 ([id number]) preservative-free Influenza Seasonal - influenza, high dose (completed) 01-24-2015 - [facility] High Dose - Age 65+ seasonal, 01-24-2015 ([id number]) preservative-free Novel Influenza H1N1, novel (completed) 01-31-2009 - [facility] preservative free [id number], 01-31-2009 ([phone]) preservative-free, injectable Pneumococcal-13 Vac pneumococcal (completed) 06-07-2014 - [facility] Conjugate conjugate vaccine, 13 06-07-2014 ([id number] ) valent Tdap (Age 7+) tetanus toxoid, (completed) 09-16-2007 - [facility] linic reduced diphtheria 09-16-2007 ([id number]) toxoid, and acellular pertussis vaccine, adsorbed Payers Payer Name Policy Number Location MEDICARE [id number] [facility] (44 195) MEDICARE PART B [id number] [facility] Found [facility] ([place]) ([id number]) [facility] [id number] [facility] (44 195) The following information is from the original human readable contentNo Payer Records Found Social History Type Social History Date Location Description History of tobacco use Current smoker 08-12-2007 [facility] ([id number]) History SDOH Social 2 12-17-2018 - [facility] Members[facility] 09-09-2019 ([id number]) History of tobacco use Cigar Smoker 08-12-2007 [facility] ([id number]) Tobacco use and exposure Never used 10-27-2019 - [facility] 10-27-2019 ([id number]) Alcohol intake Current non-drinker of 10-27-2019 [facility] alcohol (finding) 10-27-2019 ([id number]) History SDOH Alcohol 1 09-09-2019 - [facility] linic Frequency 09-09-2019 ([id number]) History SDOH Social 98 09-09-2019 - [facility] [employer] Phone 09-09-2019 ([id number]) Tobacco smoking status Former smoker 10-27-2019 - [facility] NHIS 10-27-2019 ([id number]) History SDOH Social 3 12-17-2018 - [facility] 12-17-2018 ([id number]) History SDOH Physical 0 09-09-2019 - [facility] Activity DPW 09-09-2019 ([id number]) History SDOH Stress 5 09-09-2019 - [facility] 09-09-2019 ([id number]) History SDOH Education 12 09-09-2019 - [facility] 09-09-2019 ([id number]) Sex Assigned At Not on file [facility] ([id number]) Exposure to SARS-CoV-2 Not sure [facility] (event) ([id number]) The following information is from the original [...] Each five times 07-19-2019 daily. Use with [employer] 09-16-2013 Glucometer as directed Goals Patient Goal [...] - 11/21/2019 3:30 PM EDT TELEPHONIC APPOINTMENT [place] law requires the collaborative practice agreement to be initiated by a physician in order to provide medication titration. Thus, pharmacy will only provide medication recommendations and counseling today, unless recommendations are approved verbally by the consulting provider. ? REASON FOR CONSULT: DM GOALS: A1c <?8% (PCP prefers <7.5%) CONSULTING PROVIDER:?ELBA?Deniz Garsia??? Date of Consult:?09/16/2019 ? Lovely eDvi is a 73 year old male was last seen by PCP, Dr. Morgan Valdez III MD on?10/27/2019.? ? Subjective: Patient is CALLED today for Follow Up pharmacotherapy management appointment for diabetes. At 09/15 CHIEF METEOROLOGIST?appt,?insulin NPH dose decreased pt was consulted to pharmacy due to increased hypoglycemia.?At last CHIEF METEOROLOGIST visit gabapentin was initiated and empiric treatment for UTI was started with nitrofurantoin mo nohydrate. At PharmD visit on , insulin lispro dose was decreased and patient was recommended to pursue basal/bolus insulin pens through [employer] patient assistance. At last PCP appt, no [...] Coronary atherosclerosis of unspecified type of vessel, [place] or graft s/p [place] in 1985 ? Diverticulosis of colon (without [...] disease, with long-term current use of insulin ([facility]) 06/15/2017 ? Unspecified essential hypertension ALLERGIES Allergen [...] G47.33 327.23 - fax compliance download to [phone] 1 Device 0 ? flash glucose sensor [...] once daily. 0 ? blood sugar diagnostic ([employer] BLOOD GLUCOSE SYSTEM) test strip Use as [...] (ONE TOUCH ULTRASOFT LANCETS) lancets Use with [employer] Glucometer as directed 100 Each 3 ? [...] disease, with long-term current use of insulin ([facility]) - ICD9: 250.40, 585.3, V58.67, ICD10: E11.22, [...] approval of new basal/bolus insulin pens from [facility].?Renal function and LFTs appropriate for continued use. [place] law requires the collaborative practice agreement to [...] for switching to Basaglar and Humalog through [employer] patient assistance, will replace current insulins. ? ACEi/ARB for renal protection:?yes, Scr and K+ ok to continue ? HbA1c: 01/14/2020 Patient is not scheduled to see PCP. Patient to follow up with PharmD, pt to call me by end of week with update on if approved by PAP. Patient verbalized understanding of instructions. Denita Thorpe, LisaD, BCACP Primary Care Clinical Pharmacist [facility] documented in this encounter Assessments Diagnosis [...] BE BASED ON THE PRIMARY CLINICAL RECORDS. [employer] provides no warranty or guarantee of the accuracy or completeness of information in this document. UNRECOGNIZED CONTENT PROVIDED BELOW FOR UNRECOGNIZED SECTION Source Comments In the event this information is protected by the Federal Confidentiality of Alcohol and Drug Abuse Patient Records regulations: The Federal rules restrict any use of the information to criminally investigate or prosecute any alcohol or drug abuse patient.[facility] the event this information is protected by the Federal Confidentiality of Alcohol and Drug Abuse Patient Records regulations: The Federal rules restrict any use of the information to criminally investigate or prosecute any alcohol or drug abuse patient.[facility] Center[facility] the event this information is protected by the Federal Confidentiality of Alcohol and Drug Abuse Patient Records regulations: The Federal rules restrict any use of the information to criminally investigate or prosecute any alcohol or drug abuse patient.[facility] CenterIn the event this information is protected by the Federal Confidentiality of Alcohol and Drug Abuse Patient Records regulations: The Federal rules restrict any use of the information to criminally investigate or prosecute any alcohol or drug abuse patient.[facility] CenterIn the event this information is protected by the Federal Confidentiality of Alcohol and Drug Abuse Patient Records regulations: The Federal rules restrict any use of the information to criminally investigate or prosecute any alcohol or drug abuse patient.[facility] CenterIn the event this information is protected by the Federal Confidentiality of Alcohol and Drug Abuse Patient Records regulations: The Federal rules restrict any use of the information to criminally investigate or prosecute any alcohol or drug abuse patient.[facility] CenterIn the event this information is protected by the Federal Confidentiality of Alcohol and Drug Abuse Patient Records regulations: The Federal rules restrict any use of the information to criminally investigate or prosecute any alcohol or drug abuse patient.[facility] CenterIn the event this information is protected by the Federal Confidentiality of Alcohol and Drug Abuse Patient Records regulations: The Federal rules restrict any use of the information to criminally investigate or prosecute any alcohol or drug abuse patient.[facility] CenterIn the event this information is protected by the Federal Confidentiality of Alcohol and Drug Abuse Patient Records regulations: The Federal rules restrict any use of the information to criminally investigate or prosecute any alcohol or drug abuse patient.[facility] CenterIn the event this information is protected by the Federal Confidentiality of Alcohol and Drug Abuse Patient Records regulations: The Federal rules restrict any use of the information to criminally investigate or prosecute any alcohol or drug abuse patient.[facility] CenterIn the event this information is protected by the Federal Confidentiality of Alcohol and Drug Abuse Patient Records regulations: The Federal rules restrict any use of the information to criminally investigate or prosecute any alcohol or drug abuse patient.[facility] CenterIn the event this information is protected by the Federal Confidentiality of Alcohol and Drug Abuse Patient Records regulations: The Federal rules restrict any use of the information to criminally investigate or prosecute any alcohol or drug abuse patient.[facility] CenterIn the event this information is protected by the Federal Confidentiality of Alcohol and Drug Abuse Patient Records regulations: The Federal rules restrict any use of the information to criminally investigate or prosecute any alcohol or drug abuse patient.[facility] CenterIn the event this information is protected by the Federal Confidentiality of Alcohol and Drug Abuse Patient Records regulations: The Federal rules restrict any use of the information to criminally investigate or prosecute any alcohol or drug abuse patient.[facility] CenterIn the event this information is protected by the Federal Confidentiality of Alcohol and Drug Abuse Patient Records regulations: The Federal rules restrict any use of the information to criminally investigate or prosecute any alcohol or drug abuse patient.[facility] UNRECOGNIZED CONTENT PROVIDED BELOW FOR UNRECOGNIZED SECTION No Status Records FoundNo Status Records Found UNRECOGNIZED CONTENT PROVIDED BELOW FOR UNRECOGNIZED SECTION INFORMATION SOURCE DATE CREATED AUTHOR AUTHOR'S ORGANIZATIO N 09/22/2017 [facility] ([place]) DATE CREATED AUTHOR AUTHOR'S ORGANIZATIO N 01/07/2020 [facility] UNRECOGNIZED CONTENT PROVIDED BELOW FOR [...] 11/28/2019 4:36 PM EDTCalled and [facility] they confirm that Basaglar is ready for delivery. Will arrive tomorrow. Called and spoke with pt's , Ila to ensure someone over the age of 18 is home to sign for package. She verbalized understanding. Denita Thorpe PharmD, BCACP Primary Care Clinical Pharmacist [facility] Telephone Encounter - Kemi (Pharmacist)Denita - 11/23/2019 1:25 PM EDTOrders for both Humalog and Basaglar (to replace Humulin) were sent to [facility] on 10/23. Attempted to call [facility] to clarify, unable to reach customer response representative. Was able to leave voicemail on [...] Thorpe PharmD, BCACP Primary Care Clinical Pharmacist [facility] Telephone Encounter - Ronen Avery LPN - 11/23/2019 10:35 AM EDTPt calls to state he would like to let Denita know that he received his Humalog quick pens but has notreceived his Humulin quick pens yet. Ronen Avery LPN documented in this encounterTelephone Encounter - Emilie (Pharmacist), Gabriela - 12/06/2019 5:22 PM EDT [facility] Referring provider: No ref. provider found Lovely Devi is a 74 year old year old male patient being evaluated today for anticoagulation Telemanagement visit. Patient is currently on the following anticoagulant Warfarin Labs PT INR (no units) Date Value 11/26/2018 Test sent to [facility]. 10/16/2017 1.8 01/16/2017 Test sent to [facility]. INR (POCT) (no units) Date Value [...] Pharmacy Anticoagulation Clinic Pharmacy Antico[facility] Clinic Pager: [phone] Description Patient has 3 mg tablets of warfarin. Patient takes in the morning. . Telephone Encounter - Shawn ([employer] Consultant), Cristina - 12/06/2019 5:13 PM EDT Patient called and left message that stated he received a message re: his INR result and dosing but he couldn't understand what dose to take of his warfarin. Patient can be reached at [phone]. Cristina Escobar CPhT (Ground Operations Superintendent) Pharmacy Anticoagulation Clinic Telephone Encounter - Andre (Pharmacist)Lee - 12/06/2019 3:29 PM EDT [facility]ulatory [facility] Lovely Devi is a 74 year old year old male patient being evaluated today for anticoagulation Telemanagement visit. Patient is currently on the following anticoagulant Warfarin Labs PT INR (no units) Date Value 11/26/2018 Test sent to [facility]. 10/16/2017 1.8 01/16/2017 Test sent to [facility]. INR (POCT) (no units) Date Value [...] information and advised to call PAC at [phone] if any questions or changes to report. Would like to try one more time to reach patient. INR 2 weeks ago was low and leftVM for patient so not sure if he got message. Lee Moss, Pharmacist Clinical Pharmacist, Pharmacy Anticoagulation Clinic Pharmacy Anticoagulation Clinic Pager: [phone] Description Patient has 3 mg tablets of [...] Tasha Chan RN - [facility]2019 [facility] reports this was [...] Thorpe, PharmD, BCACP Primary Care Clinical Pharmacist [facility] Telephone Encounter - Cindi Pichardo RN [...] (Pharmacist)Joleen - 12/21/2019 9:15 AM EDT [facility]ulatory [facility] Referring provider: No ref. provider found Lovely Devi is a 74 year old year old male patient being evaluated today for anticoagulation Telemanagement visit. Patient is currently on the following anticoagulant Warfarin Labs PT INR (no units) Date Value 11/26/2018 Test sent to [facility]. 10/16/2017 1.8 01/16/2017 Test sent to [facility]. INR (POCT) (no units) Date Value [...] of liver or green tea, Ensure, Boost, Lula Instant Breakfast, Mulit-Vitamins, and V-8. Plan: ? Advised patient to continue with a higher weekly warfarin dose at this time. ? Next home INR check scheduled on 01/04/2020 ? Patient verbalizes understanding of the plan. JOLEEN CERRATO PHARMACIST Clinical Pharmacist, Pharmacy Anticoagulation Clinic Pharmacy Anticoagulation Clinic Pager: [phone] Description Patient has 3 mg tablets of [...] next scheduled INR is 01/10. Please advise. Telephone Encounter - Morgan Valdez III - [...] Thorpe, PharmD, BCACP Primary Care Clinical Pharmacist [facility] documented in this encounter UNRECOGNIZED CONTENT PROVIDED BELOW FOR UNRECOGNIZED SECTION Reason for Visit Reason Onset Date Comments Medication Update 11/23/2019 Reason Comments Allied Health Visit DM Reason Onset Date Comments Anticoagulation Telephone Fu 12/06/2019 Home INR re sult Reason Onset Date Comments Refill Request 12/07/2019 Reason Onset Date Comments [facility] OT POC 12/08/2019 Reason Onset Date Comments insulin did not arrive 11/30/2019 Reason Comments Outside Lab Results CBC, BMP Reason Onset Date Comments Anticoagulation Telephone Fu 12/20/2019 Home INR re sult Reason Onset Date Comments Patient Question 12/27/2019 Reason Onset Date Comments Refill Request 01/06/2020
--- OUTSIDE RECORDS SUMMARY | 2020-01-15 10:03 | XMS RPT_ITS | CCD ---
:1945 External Reference #:[id number] Author Organization [facility] Care Team Providers Name Role Phone [...] Onset ceftriaxone rash Severe, Severe 06-19-2016 - [facility] ([id number]) cefTRIAXone Other: See Comments 06-20-2014 - Ashlee richardson [facility] ([id number]) cow milk diarrhea (lactose Moderate, 06-19-2016 - [facility] art Translations: [ intolerant) Moderate Group ([id number] ) MILK] Morphine Hallucinations Severe, Critical 02-28-2005 - [facility] ([id number]) Medications Medication Name Sig Date Prescriber Location Amiodarone amiodarone (PACERONE) 11-26-2017 Morgan Valdez [facility] 200 mg tablet Take 1 (14137) tablet by mouth once daily. 0 11/26/2017 Active Comment: Take 1 tablet by mouth once daily. amLODIPine AMLODIPINE BESYLATE 5 MG TABS One 09-06-2013 [facility] (35099) tablet by mouth daily AMLODIPINE BESYLATE [id number] Melany Khanna PA-C AMLODIPINE BESYLATE 10 MG 09-06-2013 Melany Restrepo RN [facility] TABS One tablet by mouth (27931) daily AMLODIPINE BESYLATE [id number] Melany Khanna PA-C aspirin Aspirin 81 mg ORAL Tab Take 06-10-2011 Morgan Veeselina [facility] 1 tablet by mouth once (4469 1) daily. Take with food. 30 tablet 11 07/07/2011 Active ASPIRIN 81 MG TABS One tablet by mouth twice 06-10-2011 [facility] (33763) daily ASPIRIN [id number] Rahul Anaya MD ASPIRIN 81 MG TABS One tablet by mouth daily 06-10-2011 [facility] (96293) ASPIRIN [id number] Kath Esquivel MD ASPIRIN 81 MG TABS One tablet by mouth twice 06-10-2011 [facility] (74458) daily ASPIRIN [id number] Rahul Anaya MD ASPIRIN EC 81 MG TBEC One tablet by mouth 06-10-2011 [facility] (35134) daily ASPIRIN [id number] Jessica Odom RN ASPIRIN 325 MG TABS One tablet by mouth 07-16-2010 [facility] (50335) daily ASPIRIN [id number] Tracee Beard Comment: Take 1 tablet by mouth once daily. Take with food. [facility] Br[facility]-2018 Morgan Rosado [facility] Indications: Class 2 (78023) severe obesity due to excess calories with serious comorbidity and body mass index (BMI) of 38.0 to 38.9 in adult ([facility]) , Facet arthritis of lumbar region 1 Device once daily as needed. size large 1 Each 0 01/31/2018 Active [facility] [place]ications: Class 01-31-2018 Morgan Valdez [facility] (91175) 2 severe obesity due to excess calories with serious comorbidity and body mass index (BMI) of 38.0 to 38.9 in adult ([facility]) , Facet arthritis of lumbar region 1 Device once daily as needed. size large 1 Each 0 01/31/2018 Active Back Brace misc Indications: Class 01-31-2018 Morgan A [facility] (80959) 2 severe obesity due to excess calories with serious comorbidity and body mass index (BMI) of 38.0 to 38.9 in adult (HCC) , Facet arthritis of lumbar region 1 Device once daily as needed. size large 1 Each 0 01/31/2018 Active Back Brace misc Indications: Class 01-31-2018 [facility] (52017) 2 severe obesity due to excess calories with serious comorbidity and body mass index (BMI) of 38.0 to 38.9 in adult (HCC) , Facet arthritis of lumbar region 1 Device once daily as needed. size large 1 Each 0 01/31/2018 Active Back Brace misc Indications: Class 01-31-2018 [facility] (47444) 2 severe obesity due to excess calories with serious comorbidity and body mass index (BMI) of 38.0 to 38.9 in adult (HCC) , Facet arthritis of lumbar region 1 Device once daily as needed. size large 1 Each 0 01/31/2018 Active Back Brace misc Indications: Class 01-31-2018 [facility] (70352) 2 severe obesity due to excess calories with serious comorbidity and body mass index (BMI) of 38.0 to 38.9 in adult (HCC) , Facet arthritis of lumbar region 1 Device once daily as needed. size large 1 Each 0 01/31/2018 Active Back Brace misc Indications: Class 01-31-2018 [facility] (30701) 2 severe obesity due to excess calories with serious comorbidity and body mass index (BMI) of 38.0 to 38.9 in adult (HCC) , Facet arthritis of lumbar region 1 Device once daily as needed. size large 1 Each 0 01/31/2018 Active Back Brace misc Indications: Class 01-31-2018 [facility] (46613) 2 severe obesity due to excess calories with serious comorbidity and body mass index (BMI) of 38.0 to 38.9 in adult (HCC) , Facet arthritis of lumbar region 1 Device once daily as needed. size large 1 Each 0 01/31/2018 Active Back Brace misc Indications: Class 01-31-2018 Morgan A Cebul [facility] (59074) 2 severe obesity due to excess calories with serious comorbidity and body mass index (BMI) of 38.0 to 38.9 in adult (HCC) , Facet arthritis of lumbar region 1 Device once daily as needed. size large 1 Each 0 01/31/2018 Active Back Brace misc Indications: Class 01-31-2018 Morgan A bul [facility] (43596) 2 severe obesity due to excess calories with serious comorbidity and body mass index (BMI) of 38.0 to 38.9 in adult (HCC) , Facet arthritis of lumbar region 1 Device once daily as needed. size large 1 Each 0 01/31/2018 Active Back Brace misc Indications: Class 01-31-2018 Morgan A [facility] (61467) 2 severe obesity due to excess calories with serious comorbidity and body mass index (BMI) of 38.0 to 38.9 in adult (HCC) , Facet arthritis of lumbar region 1 Device once daily as needed. size large 1 Each 0 01/31/2018 Active Back Brace misc Indications: Class 01-31-2018 Morgan A [facility] (76504) 2 severe obesity due to excess calories with serious comorbidity and body mass index (BMI) of 38.0 to 38.9 in adult (HCC) , Facet arthritis of lumbar region 1 Device once daily as needed. size large 1 Each 0 01/31/2018 Active Back Brace misc Indications: Class 01-31-2018 Morgan A [facility] (88477) 2 severe obesity due to excess calories with serious comorbidity and body mass index (BMI) of 38.0 to 38.9 in adult (HCC) , Facet arthritis of lumbar region 1 Device once daily as needed. size large 1 Each 0 01/31/2018 Active Back Brace misc Indications: Class 01-31-2018 Morgan A [facility] ([id number]) 2 severe obesity due to excess calories with serious comorbidity and body mass index (BMI) of 38.0 to 38.9 in adult (HCC) , Facet arthritis of lumbar region 1 Device once daily as needed. size large 1 Each 0 01/31/2018 Active Back Brace misc Indications: Class 01-31-2018 Morgan A [facility] (32018) 2 severe obesity due to excess calories with serious comorbidity and body mass index (BMI) of 38.0 to 38.9 in adult (HCC) , Facet arthritis of lumbar region 1 Device once daily as needed. size large 1 Each 0 01/31/2018 Active Back Brace misc Indications: Class 01-31-2018 Morgan Mooney [facility] (58035) 2 severe obesity due to excess calories with serious comorbidity and body mass index (BMI) of 38.0 to 38.9 in adult (HCC) , Facet arthritis of lumbar region 1 Device once daily as needed. size large 1 Each 0 01/31/2018 Active Back Brace misc Indications: Class 01-31-2018 Morgan Mooney [facility] (20512) 2 severe obesity due to excess calories with serious comorbidity and body mass index (BMI) of 38.0 to 38.9 in adult (HCC) , Facet arthritis of lumbar region 1 Device once daily as needed. size large 1 Each 0 01/31/2018 Active Comment: 1 Device once daily as neede d. size large BIPAP BIPAP Initiate BiPAP @ 24- Nik E Mo [facility] cm of water with (46974) humidification. Mask (per patient preference), chin strap, filters, tubing / heated tubing, heated humidity and lifetime supplies. Dx. JESSICA G47.33 327.23 - fax compliance download to [phone] 1 Device 0 09/15/2018 Active BIPAP Initiate BiPAP @ 24/18 cm of 09-15-2018 Nik E [facility] (89684) water with humidification. Mask (per patient preference), chin strap, filters, tubing / heated tubing, heated humidity and lifetime supplies. Dx. JESSICA G47.33 327.23 - fax compliance download to [phone] 1 Device 0 09/15/2018 Active BIPAP Initiate BiPAP @ 24/18 cm of 09-15-2018 Nik E [facility] (33917) water with humidification. Mask (per patient preference), chin strap, filters, tubing / heated tubing, heated humidity and lifetime supplies. Dx. JESSICA G47.33 327.23 - fax compliance download to [phone] 1 Device 0 09/15/2018 Active BIPAP Initiate BiPAP @ 24/18 cm of 09-15-2018 [facility] (80819) water with humidification. Mask (per patient preference), chin strap, filters, tubing / heated tubing, heated humidity and lifetime supplies. Dx. JESSICA G47.33 327.23 - fax compliance download to [phone] 1 Device 0 09/15/2018 Active BIPAP Initiate BiPAP @ 24/18 cm of 09-15-2018 [facility] (31724) water with humidification. Mask (per patient preference), chin strap, filters, tubing / heated tubing, heated humidity and lifetime supplies. Dx. JESSICA G47.33 327.23 - fax compliance download to [phone] 1 Device 0 09/15/2018 Active BIPAP Initiate BiPAP @ 24/18 cm of 09-15-2018 [facility] (53829) water with humidification. Mask (per patient preference), chin strap, filters, tubing / heated tubing, heated humidity and lifetime supplies. Dx. JESSICA G47.33 327.23 - fax compliance download to [phone] 1 Device 0 09/15/2018 Active BIPAP Initiate BiPAP @ 24/18 cm of 09-15-2018 [facility] (24668) water with humidification. Mask (per patient preference), chin strap, filters, tubing / heated tubing, heated humidity and lifetime supplies. Dx. JESSICA G47.33 327.23 - fax compliance download to [phone] 1 Device 0 09/15/2018 Active BIPAP Initiate BiPAP @ 24/18 cm of 09-15-2018 [facility] (70696) water with humidification. Mask (per patient preference), chin strap, filters, tubing / heated tubing, heated humidity and lifetime supplies. Dx. JESSICA G47.33 327.23 - fax compliance download to [phone] 1 Device 0 09/15/2018 Active BIPAP Initiate BiPAP @ 24/18 cm of 09-15-2018 [facility] (92128) water with humidification. Mask (per patient preference), chin strap, filters, tubing / heated tubing, heated humidity and lifetime supplies. Dx. JESSICA G47.33 327.23 - fax compliance download to [phone] 1 Device 0 09/15/2018 Active BIPAP Initiate BiPAP @ 24/18 cm of 09-15-2018 [facility] (79907) water with humidification. Mask (per patient preference), chin strap, filters, tubing / heated tubing, heated humidity and lifetime supplies. Dx. JESSICA G47.33 327.23 - fax compliance download to [phone] 1 Device 0 09/15/2018 Active BIPAP Initiate BiPAP @ 24/18 cm of 09-15-2018 Nik E [facility] (82590) water with humidification. Mask (per patient preference), chin strap, filters, tubing / heated tubing, heated humidity and lifetime supplies. Dx. JESSICA G47.33 327.23 - fax compliance download to [phone] 1 Device 0 09/15/2018 Active BIPAP Initiate BiPAP @ 24/18 cm of 09-15-2018 [facility] (25199) water with humidification. Mask (per patient preference), chin strap, filters, tubing / heated tubing, heated humidity and lifetime supplies. Dx. JESSICA G47.33 327.23 - fax compliance download to [phone] 1 Device 0 09/15/2018 Active BIPAP Initiate BiPAP @ 24/18 cm of 09-15-2018 [facility] (05356) water with humidification. Mask (per patient preference), chin strap, filters, tubing / heated tubing, heated humidity and lifetime supplies. Dx. JESSICA G47.33 327.23 - fax compliance download to [phone] 1 Device 0 09/15/2018 Active BIPAP Initiate BiPAP @ 24/18 cm of 09-15-2018 [facility] (61699) water with humidification. Mask (per patient preference), chin strap, filters, tubing / heated tubing, heated humidity and lifetime supplies. Dx. JESSICA G47.33 327.23 - fax compliance download to [phone] 1 Device 0 09/15/2018 Active BIPAP Initiate BiPAP @ 24/18 cm of 09-15-2018 Nik [facility] (75785) water with humidification. Mask (per patient preference), chin strap, filters, tubing / heated tubing, heated humidity and lifetime supplies. Dx. JESSICA G47.33 327.23 - fax compliance download to [phone] 1 Device 0 09/15/2018 Active BIPAP Initiate BiPAP @ 24/18 cm of 09-15-2018 Nik Quincy [facility] (60928) water with humidification. Mask (per patient preference), chin strap, filters, tubing / heated tubing, heated humidity and lifetime supplies. Dx. JESSICA G47.33 327.23 - fax compliance download to [phone] 1 Device 0 09/15/2018 Active BIPAP Initiate BiPAP @ 24/18 cm of 09-15-2018 Nik E [facility] (17390) water with humidification. Mask (per patient preference), chin strap, filters, tubing / heated tubing, heated humidity and lifetime supplies. Dx. JESSICA G47.33 327.23 - fax compliance download to [phone] 1 Device 0 09/15/2018 Active Comment: Initiate BiPAP @ 24/18 cm of water with humidification. Mask (per patient preference), chin strap, alida ters, tubing / heated tubing, heated humidity and lifetime supplies. Dx. O SA G47.33 327.23 - fax compliance download to [phone] carvedilol carvedilol (COREG) 3.125 09-16-2019 Deniz Payne [facility] mg tablet Take 2 tablets (44 691) by mouth twice daily. for one week starting on 06/20/16 then will be taking 6.25 x 2 daily . 0 09/16/2019 Active COREG 6.25 MG TABS One 06-19-2016 [facility] tablet by mouth twice (05365) daily CARVEDILOL [id number] Johan Perry MD COREG 3.125 MG TABS One 12-06-2014 - 02-07-2015 Melissa Marks RN [facility] tablet by mouth twice (78860) daily CARVEDILOL [id number] Johan Perry MD Comment: Take 2 tablets by mouth twic e daily. for one week starting on 06/20/16 then will be taking 6.25 x 2 ajay y . cephalexin CEPHALEXIN 500 MG 07-16-2010 - [facility] TABS One tablet by 06-10-2011 Group (44 691) mouth three times daily CEPHALEXIN [id number] Tracee Beard Cholecalciferol Cholecalciferol, 09-16-2019 [facility] Vitamin D3, 50 mcg (09579) (2,000 unit) cap Indications: Vitamin D deficiency Take 1 capsule by mouth once daily. 0 09/16/2019 Active Comment: Take 1 capsule by mouth once daily. clopidogrel clopidogrel (PLAVIX) 75 mg 08-29-2019 Morgan Valdez [facility] tablet Indications: (29526) Subsequent non-ST elevation (NSTEMI) myocardial infarction within 4 weeks of initial infarction (HCC) Take 1 tablet by mouth once daily. 90 tablet 3 08/29/2019 Active PLAVIX 75 MG TABS One tablet by mouth daily 03-04-2012 [facility] (24092) CLOPIDOGREL BISULFATE [id number] Rahul Anaya MD Comment: Take 1 tablet by mouth once daily. colestipol COLESTID 1 GM TABS One 11-24-2011 - 01-01-2017 [facility] tablet by mouth twice (49364 ) daily COLESTIPOL HCL [id number] Melany Khanna PA-C COLESTID 1 GM TABS Two 11-24-2011 [facility] by mouth twice Group (44 691) daily COLESTIPOL HCL [id number] Johan Perry MD COLESTID 1 GM TABS One 11-24-2011 [facility] tablet by mouth twice Group (446 91) daily COLESTIPOL HCL 12212537386 [place] Kevan Perry MD COLESTID 1 GM TABS Two 11-24-2011 [facility] tablets by mouth twice Group (44 691) daily COLESTIPOL HCL 97907101651 Johan Perry MD COLESTID 1 GM TABS Two 11-24-2011 Vicki Kirkpatrick [facility] tablets by mouth twice Group (44 241) daily COLESTIPOL HCL 44764117156 Johan Perry MD COLESTID 1 GM TABS One 11-24-2011 Riana Francis RN [facility] tablet by mouth twice Group (446 91) daily COLESTIPOL HCL 90261214638 Johan Perry MD COLESTID 1 GM TABS One 11-24-2011 - [facility] by mouth twice 06-19-2016 Group (446 91) daily COLESTIPOL HCL 03165682455 Johan Perry MD COLESTID 1 GM TABS One 11-24-2011 Melissa Marks RN [facility] by mouth twice Group (446 91) daily COLESTIPOL HCL 06736230206 Johan Perry MD COLESTID 1 GM TABS One 11-24-2011 Riana Francis RN [facility] by mouth twice Group (446 91) daily COLESTIPOL HCL 90082557623 Johan Perry MD COLESTID 1 GM TABS One 11-24-2011 - [facility] by mouth twice 06-19-2016 Group (446 91) daily COLESTIPOL HCL 58429106853 Johan Perry MD COLESTID 1 GM TABS Two 11-24-2011 Melissa Marks RN [facility] by mouth twice Group (44 971) daily COLESTIPOL HCL 38152749173 Johan Perry MD COLESTID 1 GM TABS Two 11-24-2011 Vicki Kirkpatrick RN [facility] tablets by mouth twice Group (44 801) daily COLESTIPOL HCL 90755559178 Johan Perry MD COLESTID 1 GM TABS One 11-24-2011 Riana Francis RN [facility] by mouth twice Group (442 91) daily COLESTIPOL HCL 70312004400 Johan Kevan Perry MD COLESTID 1 GM TABS One 11-24-2011 Melissa Jesica Selina RN [facility] by mouth twice Group (446 91) daily COLESTIPOL HCL 07804849737 Johan Kevan Perry MD COLESTID 1 GM TABS One 11-24-2011 - [facility] tablet by mouth twice 06-19-2016 Group (446 91) daily COLESTIPOL HCL 70955892593 Johan Kevan Perry MD COLESTID 1 GM TABS Two 11-24-2011 Melissa Marks RN [facility] tablets by mouth twice Group (44 691) daily COLESTIPOL HCL 19143982286 [place] Kevan Perry MD COLESTID 1 GM TABS Two 11-24-2011 Vicki Kirkpatrick RN [facility] tablets by mouth twice Group (44 691) daily COLESTIPOL HCL 20698482480 Johan Perry MD COLESTID 1 GM TABS Two 11-24-2011 Melissa Marks RN [facility] tablets by mouth twice Group (44 691) daily COLESTIPOL HCL 46898177432 Johan Perry MD COLESTID 1 GM TABS Two 11-24-2011 Vicki Kirkpatrick RN [facility] tablets by mouth twice Group (44 691) daily COLESTIPOL HCL [id number] [place] Kevan Perry MD COLESTID 1 GM TABS One 11-24-2011 - [facility] by mouth twice 06-19-2016 Group (446 91) daily COLESTIPOL HCL 62080901027 Johan Kevan Perry MD COLESTID 1 GM TABS One 11-24-2011 Melissa Marks RN [facility] tablet by mouth twice Group (446 91) daily COLESTIPOL HCL 91274436571 [place] Kevan Perry MD COLESTID 1 GM TABS One 11-24-2011 Riana Francis RN [facility] tablet by mouth twice Group (446 91) daily COLESTIPOL HCL 14956446176 [place] Kevan Perry MD COLESTID 1 GM TABS Two 11-24-2011 Vicki Kirkpatrick RN [facility] tablets by mouth twice Group (44 821) daily COLESTIPOL HCL 32441871249 Johan S MD [place] COLESTID 1 GM TABS One 11-24-2011 Melissa Marks RN [facility] tablet by mouth twice Group (440 91) daily COLESTIPOL HCL 03405036609 Johan Kevan Perry MD COLESTID 1 GM TABS Two 11-24-2011 Melissa Marks RN [facility] tablets by mouth twice Group (44 991) daily COLESTIPOL HCL 46092236080 Johan Perry MD COLESTID 1 GM TABS One 11-24-2011 Riana Francis RN [facility] tablet by mouth twice Group (449 91) daily COLESTIPOL HCL [id number] MD ENRICO RogersSTID 1 GM TABS One 11-24-2011 - [facility] by mouth twice 06-19-2016 Group (446 91) daily COLESTIPOL HCL [id number] Johan Perry MD COLESTID 1 GM TABS One 11-24-2011 Riana Francis RN [facility] by mouth twice Group (446 91) daily COLESTIPOL HCL 06208740419 [place] S MD [place] COLESTID 1 GM TABS Two 11-24-2011 Vicki Kirkpatrick RN [facility] tablets by mouth twice Group (44 451) daily COLESTIPOL HCL 06369199230 [place] Kevan Perry MD COLESTID 1 GM TABS One 11-24-2011 Melissa Marks RN [facility] by mouth twice Group (443 91) daily COLESTIPOL HCL 73445682774 Johan Kevan Perry MD COLESTID 1 GM TABS One 11-24-2011 - [facility] by mouth twice 06-19-2016 Group (446 91) daily COLESTIPOL HCL 85075073891 [place] Kevan Perry MD COLESTID 1 GM TABS Two 11-24-2011 Melissa Marks RN [facility] tablets by mouth twice Group (44 691) daily COLESTIPOL HCL [id number] Johan Kevan Perry MD COLESTID 1 GM TABS One 11-24-2011 Melissa Jesica Selina RN [facility] by mouth twice Group (446 91) daily COLESTIPOL HCL 68505535184 [place] Kevan Perry MD COLESTID 1 GM TABS Two 11-24-2011 Vicki Kirkpatrick RN [facility] tablets by mouth twice Group (44 691) daily COLESTIPOL HCL 99145329744 [place] Perry MD COLESTID 1 GM TABS One 11-24-2011 Riana Mathew Penny RN [facility] tablet by mouth twice Group (446 91) daily COLESTIPOL HCL 00704327253 Johan Perry MD COLESTID 1 GM TABS Two 11-24-2011 Melissa Marks RN [facility] tablets by mouth twice Group (44 101) daily COLESTIPOL HCL 57057658642 Johan Perry MD COLESTID 1 GM TABS One 11-24-2011 - [facility] by mouth twice 06-19-2016 Group (446 91) daily COLESTIPOL HCL [id number] Johan Perry MD COLESTID 1 GM TABS Two 11-24-2011 Melissa Marks RN [facility] by mouth twice Group (44 191) daily COLESTIPOL HCL [id number] JohanMD ENRICO SuhSTID 1 GM TABS One 11-24-2011 - [facility] by mouth twice 06-19-2016 Group (446 91) daily COLESTIPOL HCL [id number] Johan Perry MD COLESTID 1 GM TABS One 11-24-2011 Riana Francis RN [facility] by mouth twice Group (446 91) daily COLESTIPOL HCL [id number] Johan Perry MD COLESTID 1 GM TABS Two 11-24-2011 Vicki Kirkpatrick RN [facility] tablets by mouth twice Group (44 691) daily COLESTIPOL HCL 36651592666 Johan Perry MD COLESTID 1 GM TABS One 11-24-2011 Melissa Marks RN [facility] tablet by mouth twice Group (446 91) daily COLESTIPOL HCL 50748984862 Johan Perry MD COLESTID 1 GM TABS Two 11-24-2011 Vicki Kirkpatrick RN [facility] tablets by mouth twice Group (44 691) daily COLESTIPOL HCL [id number] Johan Perry MD COLESTID 1 GM TABS Two 11-24-2011 Melissa Marks RN [facility] tablets by mouth twice Group (44 691) daily COLESTIPOL HCL [id number] Johan Perry MD COLESTID 1 GM TABS One 11-24-2011 - [facility] by mouth twice 06-19-2016 Group (446 91) daily COLESTIPOL HCL [id number] Johan Perry MD COLESTID 1 GM TABS One 11-24-2011 Melissa Marsk RN [facility] tablet by mouth twice Group (446 91) daily COLESTIPOL HCL 60838853022 Johan Perry MD COLESTID 1 GM TABS One 11-24-2011 Riana Francis RN [facility] tablet by mouth twice Group (446 91) daily COLESTIPOL HCL 29595448142 Johan Perry MD Comment: Take 1 g by mouth twice ajya y. ezetimibe ZETIA 10 MG TABS One 07-16-2010 - [facility] by mouth daily 08-26-2011 Group (07533) EZETIMIBE [id number] Rahul Anaya MD fenofibrate fenofibrate 08-10-2015 Morgan [facility] nanocrystallized (TRICOR) Gr oup (10300) 145 mg tablet Take 1 tablet by mouth once daily. 0 08/28/2015 Active Comment: Take 1 tablet by mouth once daily. flash glucose sensor flash glucose sensor 08-09-2018 [facility] (FREESTYLE ANITRA 14 (FREESTYLE ANITRA 14 ( 36258) DAY SENSOR) kit DAY SENSOR) kit Indications: Type 2 diabetes mellitus with st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, with long-term current use of insulin (HCC) 1 Each four times daily. 1 Kit 08/09/2018 Active flash glucose sensor (FREESTYLE 08-09-2018 [facility] (86095) ANITRA 14 DAY SENSOR) kit Indications: Type 2 diabetes mellitus with st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, with long-term current use of insulin (HCC) 1 Each four times daily. 1 Kit 08/09/2018 Active flash glucose sensor (FREESTYLE 08-09-2018 [facility] (84847) ANITRA 14 DAY SENSOR) kit Indications: Type 2 diabetes mellitus with st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, with long-term current use of insulin (HCC) 1 Each four times daily. 1 Kit 08/09/2018 Active flash glucose sensor (FREESTYLE 08-09-2018 [facility] (99396) ANITRA 14 DAY SENSOR) kit Indications: Type 2 diabetes mellitus with st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, with long-term current use of insulin (HCC) 1 Each four times daily. 1 Kit 08/09/2018 Active flash glucose sensor (FREESTYLE 08-09-2018 [facility] ([id number]) ANITRA 14 DAY SENSOR) kit Indications: Type 2 diabetes mellitus with st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, with long-term current use of insulin (HCC) 1 Each four times daily. 1 Kit 08/09/2018 Active flash glucose sensor (FREESTYLE 05-13-2019 [facility] A [facility] ([id number]) ANITRA 14 DAY SENSOR) kit Indications: Type 2 diabetes mellitus with st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, with long-term current use of insulin (HCC) 1 Each four times daily. 1 Kit 08/09/2018 Active flash glucose sensor (FREESTYLE 08-09-2018 Morgan A [facility] (52309) ANITRA 14 DAY SENSOR) kit Indications: Type 2 diabetes mellitus with st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, with long-term current use of insulin (HCC) 1 Each four times daily. 1 Kit 08/09/2018 Active flash glucose sensor (FREESTYLE 08-09-2018 [facility] (21217) ANITRA 14 DAY SENSOR) kit Indications: Type 2 diabetes mellitus with st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, with long-term current use of insulin (HCC) 1 Each four times daily. 1 Kit 08/09/2018 Active flash glucose sensor (FREESTYLE 08-09-2018 [facility] (59562) ANITRA 14 DAY SENSOR) kit Indications: Type 2 diabetes mellitus with st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, with long-term current use of insulin (HCC) 1 Each four times daily. 1 Kit 08/09/2018 Active flash glucose sensor (FREESTYLE 08-09-2018 Morgan [facility] (61249) ANITRA 14 DAY SENSOR) kit Indications: Type 2 diabetes mellitus with st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, with long-term current use of insulin (HCC) 1 Each four times daily. 1 Kit 08/09/2018 Active flash glucose sensor (FREESTYLE 08-09-2018 Morgan A [facility] (57269) ANITRA 14 DAY SENSOR) kit Indications: Type 2 diabetes mellitus with st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, with long-term current use of insulin (HCC) 1 Each four times daily. 1 Kit 08/09/2018 Active flash glucose sensor (FREESTYLE 08-09-2018 Morgan A [facility] (42674) ANITRA 14 DAY SENSOR) kit Indications: Type 2 diabetes mellitus with st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, with long-term current use of insulin (HCC) 1 Each four times daily. 1 Kit 08/09/2018 Active flash glucose sensor (FREESTYLE 08-09-2018 [facility] (13962) ANITRA 14 DAY SENSOR) kit Indications: Type 2 diabetes mellitus with st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, with long-term current use of insulin (HCC) 1 Each four times daily. 1 Kit 08/09/2018 Active flash glucose sensor (FREESTYLE 08-09-2018 Morgan Mooney [facility] (46869) ANITRA 14 DAY SENSOR) kit Indications: Type 2 diabetes mellitus with st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, with long-term current use of insulin (HCC) 1 Each four times daily. 1 Kit 08/09/2018 Active flash glucose sensor (FREESTYLE 08-09-2018 [facility] (46377) ANITRA 14 DAY SENSOR) kit Indications: Type 2 diabetes mellitus with st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, with long-term current use of insulin ([facility]) 1 Each four times daily. 1 Kit 08/09/2018 Active flash glucose sensor (FREESTYLE 08-09-2018 [facility] (69020) ANITRA 14 DAY SENSOR) kit Indications: Type 2 diabetes mellitus with st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, with long-term current use of insulin ([facility]) 1 Each four times daily. 1 Kit 08/09/2018 Active flash glucose sensor (FREESTYLE 08-09-2018 [facility] (17581) ANITRA 14 DAY SENSOR) kit Indications: Type 2 diabetes mellitus with st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, with long-term current use of insulin ([facility]) 1 Each four times daily. 1 Kit 08/09/2018 Active Comment: 1 Each four times daily. furosemide furosemide (LASIX) 40 mg 04-19-2019 [facility] tablet Indications: Acute (4 4691) on chronic systolic congestive heart failure (HCC) Take 1 tablet by mouth twice daily. 60 tablet 04/19/2019 Active LASIX 40 MG TABS One tablet by 03-14-2014 [facility] (61074) mouth twice daily FUROSEMIDE [id number] Vicki Kirkpatrick RN LASIX 40 MG TABS One tablet by 03-14-2014 [facility] (76248) mouth daily FUROSEMIDE [id number] Johan Perry MD LASIX 40 MG TABS One tablet by 03-08-2013 - 09-06-2013 [facility] (58235) mouth daily FUROSEMIDE [id number] Johan Perry MD Comment: Take 1 tablet by mouth twice daily. gabapentin gabapentin (NEURONTIN) 10-27-2019 - Morgan Mooney [facility] 300 mg capsule 02-05-2020 Group ([id number]) Indications: Type 2 diabetes mellitus with diabetic neuropathy, with long-term current use of insulin (HCC) Take 3 capsules by mouth three times daily for 30 days. 270 capsule 0 01/06/2020 02/05/2020 Active GABAPENTIN 100 MG CAPS 6 tablets by mouth 09-06-2013 [facility] (51048) three times a day GABAPENTIN [id number] Johan Perry MD GABAPENTIN 100 MG CAPS One tablet by mouth 09-06-2013 [facility] (46702) three times daily GABAPENTIN [id number] Melany Khanna PA-C GABAPENTIN 100 MG CAPS One tablet by mouth 09-06-2013 [facility] (30125) daily GABAPENTIN [id number] Melissa Marks RN GABAPENTIN 600 MG TABS One tablet by mouth 09-06-2013 [facility] (02884) three times daily GABAPENTIN [id number] Johan Perry MD Comment: Take 3 capsules by mouth thr ee times daily for 30 days. hydroCHLOROthiazide HYDROCHLOROTHIAZIDE 12.5 MG 10-09-2011 - [facility] TABS One tablet by mouth 12-11-2014 [facility] (81999) daily- STOP replaced by Lasix HYDROCHLOROTHIAZIDE [id number] Melissa Marks RN HYDROCHLOROTHIAZIDE 25 MG TABS One 09-13-2010 - 06-10-2011 [facility] tablet by mouth daily (83418) HYDROCHLOROTHIAZIDE [id number] Tracee Beard insulin glargine insulin glargine 01-09-2020 [facility] Mooney [facility] (BASAGLAR KWIKPEN U-100 Grou p (88017) INSULIN) 100 unit/mL (3 mL) Inject 36 Units subcutaneously every 12 hours. 0 01/09/2020 Active LANTUS 100 UNIT/ML SOLN take as 08-26-2011 [facility] (18698) directed INSULIN GLARGINE [id number] Rahul Anaya MD LANTUS 100 UNIT/ML SOLN take as 08-26-2011 [facility] (55281) directed INSULIN GLARGINE [id number] Rahul Anaya MD LANTUS 100 UNIT/ML SOLN take as 08-26-2011 [facility] (09419) directed INSULIN GLARGINE [id number] Rahul Anaya MD LANTUS 100 UNIT/ML SOLN take as 08-26-2011 [facility] (63211) directed INSULIN GLARGINE [id number] Rahul Anaya MD LANTUS 100 UNIT/ML SOLN take as 08-26-2011 [facility] (44494) directed INSULIN GLARGINE [id number] Rahul Anaya MD LANTUS 100 UNIT/ML SOLN take as 08-26-2011 [facility] (51354) directed INSULIN GLARGINE [id number] Rahul Anaya MD LANTUS 100 UNIT/ML SOLN take as 08-26-2011 [facility] (50068) directed INSULIN GLARGINE [id number] Rahul Anaya MD LANTUS 100 UNIT/ML SOLN take as 08-26-2011 [facility] (04153) directed INSULIN GLARGINE [id number] Rahul Anaya MD LANTUS 100 UNIT/ML SOLN take as 08-26-2011 [facility] (39616) directed INSULIN GLARGINE [id number] Rahul Anaya MD LANTUS 100 UNIT/ML SOLN take as 08-26-2011 [facility] (01409) directed INSULIN GLARGINE [id number] Rahul Anaya MD LANTUS 100 UNIT/ML SOLN take as 08-26-2011 [facility] (73769) directed INSULIN GLARGINE [id number] Rahul Anaya MD insulin glargine (BASAGLAR KWIKPEN [facility] Provider [facility] (49943) U-100 INSULIN) 100 unit/mL (3 mL) Inject 34 Units subcutaneously every 12 hours. 0 Active insulin glargine (BASAGLAR KWIKPEN [facility] (73963) U-100 INSULIN) 100 unit/mL (3 mL) Inject 30 Units subcutaneously every 12 hours. 0 Active Comment: Inject 30 Units subcutaneous ly every 12 hours. Inject 34 Units subcutaneous ly every 12 hours. Inject 36 Units subcutaneous ly every 12 hours. insulin lispro insulin lispro (HUMALOG 01-09-2020 [facility] KWIKPEN INSULIN) 100 (71927) unit/mL Inject 21 Units subcutaneously three times daily before meals. Plus sliding scale as directed ( 1 unit for every 50 mg/dL above 150 mg/dL) 0 01/09/2020 Active HUMALOG 100 UNIT/ML SOLN 12-11-[address] [facility] units sq tid before meals (25860 ) INSULIN LISPRO (HUMAN) [id number] Melissa Marks RN HUMALOG 100 UNIT/ML SOLN 12-11-[address] [facility] units sq before meals (19359) INSULIN LISPRO (HUMAN) [id number] Johan Perry MD HUMALOG 100 UNIT/ML SOLN 12-11-[address] [facility] units sq before meals (71930) INSULIN LISPRO (HUMAN) [id number] Johan Perry MD HUMALOG 100 UNIT/ML SOLN 12-11-[address] [facility] units sq before meals (07479) INSULIN LISPRO (HUMAN) [id number] Johan Perry MD HUMALOG 100 UNIT/ML SOLN 12-11-[address] [facility] units sq before meals (09106) INSULIN LISPRO (HUMAN) [id number] Johan Perry MD HUMALOG 100 UNIT/ML SOLN 12-11-[address] [facility] units sq before meals (05572) INSULIN LISPRO (HUMAN) [id number] Johan Perry MD HUMALOG 100 UNIT/ML SOLN 12-11-[address] [facility] units sq before meals (51138) INSULIN LISPRO (HUMAN) [id number] Johan Perry MD HUMALOG 100 UNIT/ML SOLN 12-11-[address] [facility] units sq before meals (96263) INSULIN LISPRO (HUMAN) [id number] Johan Perry MD HUMALOG 100 UNIT/ML SOLN 12-11-[address] [facility] units sq before meals (72635) INSULIN LISPRO (HUMAN) [id number] Johan Perry MD HUMALOG 100 UNIT/ML SOLN 12-11-[address] [facility] units sq before meals (05925) INSULIN LISPRO (HUMAN) [id number] Johan Perry MD HUMALOG 100 UNIT/ML SOLN 12-11-[address] [facility] units sq before meals (53364) INSULIN LISPRO (HUMAN) [id number] Johan Perry MD HUMALOG 100 UNIT/ML SOLN 12-11-[address] [facility] units sq before meals (29773) INSULIN LISPRO (HUMAN) [id number] Johan Perry MD HUMALOG 100 UNIT/ML SOLN 12-11-[address] [facility] units sq before meals (12740) INSULIN LISPRO (HUMAN) [id number] Johan Perry MD HUMALOG 100 UNIT/ML SOLN 12-11-[address] [facility] units sq before meals (64219) INSULIN LISPRO (HUMAN) [id number] Johan Perry MD HUMALOG 100 UNIT/ML SOLN 12-11-[address] [facility] units sq before meals (31569) INSULIN LISPRO (HUMAN) [id number] Johan Perry MD HUMALOG 100 UNIT/ML SOLN 12-11-[address] [facility] units sq before meals (45740) INSULIN LISPRO (HUMAN) [id number] Johan Perry MD HUMALOG 100 UNIT/ML SOLN 12-11-[address] [facility] units sq before meals (43276) INSULIN LISPRO (HUMAN) [id number] Johan Perry MD HUMALOG 100 UNIT/ML SOLN 12-11-[address] [facility] units sq before meals (98165) INSULIN LISPRO (HUMAN) [id number] Johan Perry MD HUMALOG 100 UNIT/ML SOLN 12-11-[address] [facility] units sq before meals (48286) INSULIN LISPRO (HUMAN) [id number] Johan Perry MD HUMALOG 100 UNIT/ML SOLN 12-11-[address] [facility] units sq before meals (77263) INSULIN LISPRO (HUMAN) [id number] Johan Perry MD HUMALOG SOLN Take as 07-16-2010 - 08-26-2011 [facility] directed (37077) INSULIN LISPRO (HUMAN) SOLN [id number] Rahul Anaya MD HUMALOG SOLN Take as 07-16-2010 [facility] directed INSULIN (446 91) LISPRO (HUMAN) SOLN [id number] Tracee Beard HUMALOG SOLN Take as 07-16-2010 [facility] directed INSULIN (446 91) LISPRO (HUMAN) SOLN [id number] Tracee Beard HUMALOG SOLN Take as 07-16-2010 - 08-26-2011 [facility] directed (29390) INSULIN LISPRO (HUMAN) SOLN [id number] Rahul Anaya MD HUMALOG SOLN Take as 07-16-2010 - 08-26-2011 [facility] directed (26219) INSULIN LISPRO (HUMAN) SOLN [id number] Rahul Anaya MD HUMALOG SOLN Take as 07-16-2010 [facility] directed INSULIN (446 91) LISPRO (HUMAN) SOLN [id number] Tracee Beard HUMALOG SOLN Take as 07-16-2010 [facility] directed INSULIN (446 91) LISPRO (HUMAN) SOLN [id number] Tracee Beard HUMALOG SOLN Take as 07-16-2010 - 08-26-2011 [facility] directed (13264) INSULIN LISPRO (HUMAN) SOLN [id number] Rahul Anaya MD HUMALOG SOLN Take as 07-16-2010 - 08-26-[facility] directed (63789) INSULIN LISPRO (HUMAN) SOLN [id number] Rahul Anaya MD HUMALOG SOLN Take as 07-16-2010 [facility] directed INSULIN (446 91) LISPRO (HUMAN) SOLN [id number] Tracee Beard HUMALOG SOLN Take as 07-16-2010 - 08-26-2011 [facility] directed (38139) INSULIN LISPRO (HUMAN) SOLN [id number] Rahul Anaya MD HUMALOG SOLN Take as 07-16-2010 [facility] directed INSULIN (446 91) LISPRO (HUMAN) SOLN [id number] Tracee Beard HUMALOG SOLN Take as 07-16-2010 [facility] directed INSULIN (446 91) LISPRO (HUMAN) SOLN [id number] Tracee Beard HUMALOG SOLN Take as 07-16-2010 - 08-26-2011 [facility] directed (45239) INSULIN LISPRO (HUMAN) SOLN [id number] Rahul Anaay MD HUMALOG SOLN Take as 07-16-2010 [facility] directed INSULIN (446 91) LISPRO (HUMAN) SOLN [id number] Tracee Beard HUMALOG SOLN Take as 07-16-2010 - 08-26-2011 [facility] directed (99797) INSULIN LISPRO (HUMAN) SOLN [id number] Rahul Anaya MD HUMALOG SOLN Take as 07-16-2010 - 08-26-2011 [facility] directed (29434) INSULIN LISPRO (HUMAN) SOLN [id number] Rahul Anaya MD HUMALOG SOLN Take as 07-16-2010 [facility] directed INSULIN (446 91) LISPRO (HUMAN) SOLN [id number] Tracee Beard HUMALOG SOLN Take as 07-16-2010 [facility] directed INSULIN (446 91) LISPRO (HUMAN) SOLN [id number] Tracee Beard HUMALOG SOLN Take as 07-16-2010 - 08-26-2011 [facility] directed (62376) INSULIN LISPRO (HUMAN) SOLN [id number] Rahul Anaya MD HUMALOG SOLN Take as 07-16-2010 - 08-26-2011 [facility] directed (21710) INSULIN LISPRO (HUMAN) SOLN [id number] Rahul Anaya MD HUMALOG SOLN Take as 07-16-2010 [facility] directed INSULIN (446 91) LISPRO (HUMAN) SOLN [id number] Tracee Roblesward HUMALOG SOLN Take as 07-16-2010 - 08-26-2011 [facility] directed (74314) INSULIN LISPRO (HUMAN) SOLN [id number] Rahul Anaya MD HUMALOG SOLN Take as 07-16-2010 [facility] directed INSULIN (446 91) LISPRO (HUMAN) SOLN [id number] Tracee Beard HUMALOG SOLN Take as 07-16-2010 [facility] directed INSULIN (446 91) LISPRO (HUMAN) SOLN [id number] Tracee Beard HUMALOG SOLN Take as 07-16-2010 - 08-26-2011 [facility] directed (37509) INSULIN LISPRO (HUMAN) SOLN [id number] Rahul Anaya MD HUMALOG SOLN Take as 07-16-[facility] INSULIN (446 91) LISPRO (HUMAN) SOLN [id number] Tracee Beard HUMALOG SOLN Take as 07-16-2010 - 08-26-2011 [facility] directed (01509) INSULIN LISPRO (HUMAN) SOLN [id number] Rahul Anaya MD HUMALOG SOLN Take as 07-16-2010 [facility] directed INSULIN (446 91) LISPRO (HUMAN) SOLN [id number] Tracee Beard HUMALOG SOLN Take as 07-16-2010 - 08-26-2011 [facility] directed (89495) INSULIN LISPRO (HUMAN) SOLN [id number] Rahul Anaya MD HUMALOG SOLN Take as 07-16-2010 - 08-26-2011 [facility] directed (94251) INSULIN LISPRO (HUMAN) SOLN [id number] Rahul Anaya MD HUMALOG SOLN Take as 07-16-[facility] directed INSULIN (446 91) LISPRO (HUMAN) SOLN [id number] Tracee Beard insulin lispro (HUMALOG [facility] KWIKPEN INSULIN) 100 unit/mL (44 [...] [facility] UNIT/ML SOPN as directed (44 786) INSULIN GLULISINE [id number] Vicki Kirkpatrick RN APIDRA SOLOSTAR 100 UNIT/ML SOPN 12-11-2014 [facility] (27606) as directed INSULIN GLULISINE [id number] Vicki Kirkpatrick RN APIDRA SOLOSTAR 100 UNIT/ML SOPN 12-11-2014 [facility] (41700) as directed INSULIN GLULISINE [id number] Vicki Kirkpatrick RN APIDRA SOLOSTAR 100 UNIT/ML SOPN 12-11-2014 [facility] (24539) as directed INSULIN GLULISINE [id number] Vicki Kirkpatrick RN APIDRA SOLOSTAR 100 UNIT/ML SOPN 12-11-2014 [facility] (12205) as directed INSULIN GLULISINE [id number] Vicki Kirkpatrick RN APIDRA SOLOSTAR 100 UNIT/ML SOPN 12-11-2014 [facility] (33796) as directed INSULIN GLULISINE [id number] Vicki Kirkpatrick RN APIDRA SOLOSTAR 100 UNIT/ML SOPN 12-11-2014 [facility] (83108) as directed INSULIN GLULISINE [id number] Vicki Kirkpatrick RN APIDRA SOLOSTAR 100 UNIT/ML SOPN 12-11-2014 [facility] (43049) as directed INSULIN GLULISINE [id number] Vicki Kirkpatrick RN APIDRA SOLOSTAR 100 UNIT/ML SOPN 12-11-2014 [facility] (73103) as directed INSULIN GLULISINE [id number] Vicki Kirkpatrick RN APIDRA SOLOSTAR 100 UNIT/ML SOPN 12-11-2014 [facility] (20273) as directed INSULIN GLULISINE [id number] Vicki Kirkpatrick RN APIDRA SOLOSTAR 100 UNIT/ML SOPN 12-11-2014 [facility] (00330) as directed INSULIN GLULISINE [id number] Vicki Kirkpatrick RN APIDRA SOLN take as directed 08-26-2011 [facility] (93438) INSULIN GLULISINE SOLN [id number] Rahul Anaya MD APIDRJesica SOLN take as directed 08-26-2011 - 12-27-2014 [facility] (69941) INSULIN GLULISINE SOLN [id number] MD CRYSTAL RogersDRJesica SOLN take as directed 08-26-2011 [facility] (66775) INSULIN GLULISINE SOLN [id number] Rahul ROJASDRJesica SOLN take as directed 08-26-2011 - 12-27-2014 [facility] (75644) INSULIN GLULISINE SOLN [id number] MD RADHA Rogers SOLN take as directed 08-26-2011 - 12-27-2014 [facility] (21034) INSULIN GLULISINE SOLN [id number] MD RADHA Rogers SOLN take as directed 08-26-2011 [facility] (36724) INSULIN GLULISINE SOLN [id number] Rahul GARCIA SOLN take as directed 08-26-2011 - 12-27-2014 [facility] (09368) INSULIN GLULISINE SOLN [id number] MD RADHA Rogers SOLAshwin take as directed 08-26-2011 [facility] (52004) INSULIN GLULISINE SOLN [id number] Rahul ESCOBEDO take as directed 08-26-2011 [facility] (28599) INSULIN GLULISINE SOLN [id number] Rahul ESCOBEDO take as directed 08-26-2011 - 12-27-2014 [facility] (36967) INSULIN GLULISINE SOLN [id number] MD RADHA Rogers take as directed 08-26-2011 [facility] (65399) INSULIN GLULISINE SOLN [id number] Rahul GARCIA SOLAshwin take as directed 08-26-2011 - 12-27-2014 [facility] (11615) INSULIN GLULISINE SOLN [id number] MD RADHA Rogers take as directed 08-26-2011 - 12-27-2014 [facility] (75175) INSULIN GLULISINE SOLN [id number] MD RADHA Rogers take as directed 08-26-2011 [facility] (21266) INSULIN GLULISINE SOLN [id number] Rahul ESCOBEDO take as directed 08-26-2011 - 12-27-2014 [facility] (18490) INSULIN GLULISINE SOLN [id number] MD RADHA Rogers take as directed 08-26-2011 [facility] (16473) INSULIN GLULISINE SOLN [id number] Rahul ESCOBEDO take as directed 08-26-2011 [facility] (36265) INSULIN GLULISINE SOLN [id number] Rahul GARCIA SOLAshwin take as directed 08-25-2011 - 12-27-2014 [facility] (71261) INSULIN GLULISINE SOLN [id number] MD RADHA Rogers SOLN take as directed 08-26-2011 [facility] (83740) INSULIN GLULISINE SOLN [id number] Rahul GARCIA SOLAshwin take as directed 08-26-2011 - 12-27-2014 [facility] (47416) INSULIN GLULISINE SOLN [id number] MD RADHA Rogers SOLN take as directed 08-26-2011 - 12-27-2014 [facility] (71372) INSULIN GLULISINE SOLN [id number] MD RADHA Rogers SOLN take as directed 08-26-2011 [facility] (13427) INSULIN GLULISINE SOLN [id number] Rahul GARCIA SOLAshwin take as directed 08-26-2011 - 12-27-2014 [facility] (98421) INSULIN GLULISINE SOLN [id number] MD RADHA Rogers SOLAshwin take as directed 08-26-2011 [facility] (39176) INSULIN GLULISINE SOLN [id number] Rahul GARCIA SOLAshwin take as directed 08-26-2011 - 12-27-2014 [facility] (58789) INSULIN GLULISINE SOLN [id number] MD RADHA Rogers SOLN take as directed 08-26-2011 [facility] (87965) INSULIN GLULISINE SOLN [id number] Rahul GARCIA SOLAshwin take as directed 08-26-2011 [facility] (87291) INSULIN GLULISINE SOLN [id number] Rahul GARCIA SOLN take as directed 08-26-2011 - 12-27-2014 [facility] (48162) INSULIN GLULISINE SOLN [id number] MD RADHA Rogers SOLAshwin take as directed 08-26-2011 [facility] (48427) INSULIN GLULISINE SOLN [id number] Rahul GARCIA SOLAshwin take as directed 08-26-2011 - 12-27-2014 [facility] (07194) INSULIN GLULISINE SOLN [id number] MD RADHA Rogers SOLN take as directed 08-26-2011 - 12-27-2014 [facility] (07657) INSULIN GLULISINE SOLN [id number] MD RADHA Rogers SOLAshwin take as directed 08-26-2011 [facility] (15831) INSULIN GLULISINE SOLN [id number] Rahul Anaya MD insulin, insulin NPH injection 10-13-2019 - Deniz valerio isophane (HumuLIN N,NovoLIN N) 12-12-2019 [facility], 32 units subcutaneous LLC (4 4691) before breakfast and 32 units at bedtime 0 10/13/2019 12/12/2019 Discontinued (Changing Therapy/Dosage Form) HUMULIN N 100 UNIT/ML SUSP take as 08-26-2011 [place] [facility] directed INSULIN ISOPHANE (44760) HUMAN [id number] Johan Perry MD HUMULIN N 100 UNIT/ML SUSP take as 08-26-2011 [place] [facility] directed INSULIN ISOPHANE (73244) HUMAN [id number] Johan Perry MD Comment: 32 units subcutaneous before breakfast and 32 units at bedtime isosorbide isosorbide mononitrate ER 09-22-2014 [facility] (IMDUR) 30 mg 24 hr tablet ( 58707) Take 60 mg by mouth once daily. 0 06/05/2016 Active ISOSORBIDE MONONITRATE ER 60 MG 09-22-2014 [facility] (86877) [id number] One tablet by mouth daily ISOSORBIDE MONONITRATE [id number] Vicki Kirkpatrick RN ISOSORBIDE MONONITRATE ER 60 MG 09-22-2014 - 02-07-2015 [facility] (68110) [id number] One tablet by mouth twice daily ISOSORBIDE MONONITRATE [id number] Vicki Kirkpatrick RN ISOSORBIDE MONONITRATE ER 60 MG 09-22-2014 [facility] (19375) [id number] One tablet by mouth daily- this was increased from 30 mg ISOSORBIDE MONONITRATE [id number] RAUL TimmonsC Comment: Take 60 mg by mouth once rustam ly. isosorbide ISORDIL TITRADOSE 06-27-2011 - Rahul Ludwig art dinitrate TABS 20mg, One 08-26-2011 [facility] (4469 1) tablet by mouth three times daily ISOSORBIDE DINITRATE TABS [id number] Rahul Anaya MD ISORDIL TITRADOSE TABS 20mg, One 06-26-2011 - 08-26-2011 [facility] (47518) tablet by mouth three times daily ISOSORBIDE DINITRATE TABS [id number] Rahul Anaya MD lansoprazole PREVACID 30 MG CPDR As 07-16-2010 - 06-09-2011 [facility] needed (92202) LANSOPRAZOLE [id number] Rahul Anaya MD PREVACID 30 MG CPDR As needed 07-16-2010 - 06-10-2011 [facility] (04070) LANSOPRAZOLE [id number] Tracee Beard latanoprost latanoprost (XALATAN) 0.005 % [facility] Provide r [facility] (12930) ophthalmic solution Use 1 Drop in both [...] r [facility] tablet by mouth daily (42130) LISINOPRIL [id number] Johan Perry MD LISINOPRIL 20 MG TABS 06-10-2011 [facility] art Group LISINOPRIL (53562) [id number] Johan Perry MD LISINOPRIL 20 MG TABS One 06-10-2011 Melany Khanna [facility] tablet by mouth twice daily PA-C (446 91) LISINOPRIL [id number] Melany Khanna, PA-C Comment: Take 1 tablet by mouth once daily. meclizine MECLIZINE HCL 12.5 MG 12-16-2010 - [facility]S One tablet by 07-03-2015 Group (44 691) mouth three times daily MECLIZINE HCL [id number] Melissa Marks RN metFORMIN METFORMIN HCL 500 MG 09-27-2014 [facility]S One tablet by Group (44 691) mouth twice daily METFORMIN HCL [id number] Melany Khanna, PA-C metOLazone METOLAZONE 2.5 MG 08-20-2016 - [facility] TABS One tablet by 09-04-2016 RN Group ([phone]) mouth three times a week. Take 30 minutes prior to morning lasix dose METOLAZONE [id number] Johan Perry MD metoprolol TOPROL XL 100 MG 12-15-2011 Melissa Marks RN [facility] [id number] One tablet Group ( 15462) by mouth daily METOPROLOL SUCCINATE [id number] Johan Perry MD TOPROL XL 100 MG 12-15-2011 - [facility] [id number] One tablet by 12-11-2014 Group (4 4691) mouth daily- STOP replaced by coreg METOPROLOL SUCCINATE [id number] Melany Khanna PA-C TOPROL XL 100 MG 12-15-2011 Melissa Marks RN [facility] [id number] One tablet by Group (4 4691) mouth daily METOPROLOL SUCCINATE [id number] Johan Perry MD TOPROL XL 100 MG 12-15-2011 - [facility] [id number] One tablet by 12-11-2014 Group (4 4691) mouth daily- STOP replaced by coreg METOPROLOL SUCCINATE 78160725732 Melissa Marks RN TOPROL XL 100 MG 12-15-2011 [facility] [id number] One tablet by Group (4 4691) mouth daily- STOP replaced by coreg METOPROLOL SUCCINATE 34786986518 Melany Khanna PA-C TOPROL XL 100 MG 12-15-2011 Melissa Marks RN [facility] [id number] One tablet by Group (4 4691) mouth daily METOPROLOL SUCCINATE [id number] Johan Perry MD TOPROL XL 100 MG 12-15-2011 [facility] [id number] One tablet by Group (4 4691) mouth daily- STOP replaced by coreg METOPROLOL SUCCINATE 12251794332 Melany Khanna PA-C TOPROL XL 100 MG 12-15-2011 - [facility] [id number] One tablet by 12-11-2014 Group (4 4691) mouth daily- STOP replaced by coreg METOPROLOL SUCCINATE 97069913312 Melissathi Marks RN TOPROL XL 100 MG 12-15-2011 - [facility] [id number] One tablet by 12-11-2014 Group (4 4691) mouth daily- STOP replaced by coreg METOPROLOL SUCCINATE [id number] Melissathi Marks RN TOPROL XL 100 MG 12-15-2011 Melissa A Selina RN [facility] [id number] One tablet by Group (4 4691) mouth daily METOPROLOL SUCCINATE [id number] Johan Perry MD TOPROL XL 100 MG 12-15-2011 [facility] [id number] One tablet by Group (4 4691) mouth daily- STOP replaced by coreg METOPROLOL SUCCINATE [id number] Melany Khanna PA-C TOPROL XL 100 MG 12-15-2011 - [facility] [id number] One tablet by 12-11-2014 Group (4 4691) mouth daily- STOP replaced by coreg METOPROLOL SUCCINATE 51008652075 Melissa A Selina RN TOPROL XL 100 MG 12-15-2011 Melissa Mooney Selina RN [facility] [id number] One tablet by Group (4 4691) mouth daily METOPROLOL SUCCINATE [id number] Johan Perry MD TOPROL XL 100 MG 12-15-2011 [facility] [id number] One tablet by Group (4 4691) mouth daily- STOP replaced by coreg METOPROLOL SUCCINATE 76537778825 Melany Khanna PA-C TOPROL XL 100 MG 12-15-2011 - [facility] [id number] One tablet by 12-11-2014 Group (4 4691) mouth daily- STOP replaced by coreg METOPROLOL SUCCINATE [id number] Melissa A Selina RN TOPROL XL 100 MG 12-15-2011 [facility] [id number] One tablet by Group (4 4691) mouth daily- STOP replaced by coreg METOPROLOL SUCCINATE 35041617037 Melany Khanna PA-C TOPROL XL 100 MG 12-15-2011 Melissa Mooney Selina ORTIZ [facility] [id number] One tablet by Group (4 4691) mouth daily METOPROLOL SUCCINATE 43945789389 Johan Perry MD TOPROL XL 100 MG 12-15-2011 Melissa Mooney Selina ORTIZ [facility] [id number] One tablet by Group (4 4691) mouth daily METOPROLOL SUCCINATE 87522282712 Johan Perry MD TOPROL XL 100 MG 12-15-2011 [facility] [id number]-PEB One tablet by Group (4 4691) mouth daily- STOP replaced by coreg METOPROLOL SUCCINATE 51126525171 Melany Khanna PA-C TOPROL XL 100 MG 12-15-2011 - [facility] [id number] One tablet by 12-11-2014 Group (4 4691) mouth daily- STOP replaced by coreg METOPROLOL SUCCINATE 33396584619 Melissa Mooney Selina ORTIZ TOPROL XL 100 MG 12-15-2011 - [facility] [id number] One tablet by 12-11-2014 Group (4 4691) mouth daily- STOP replaced by coreg METOPROLOL SUCCINATE [id number] Melissa Mooney Selina RN TOPROL XL 100 MG 12-15-2011 Melissa Jesica Selina ORTIZ [facility] [id number] One tablet by Group (4 4691) mouth daily METOPROLOL SUCCINATE [id number] Johan Perry MD TOPROL XL 100 MG 12-15-2011 [facility] [id number]-[id number] One tablet by Group (4 4691) mouth daily- STOP replaced by coreg METOPROLOL SUCCINATE 80444744902 Melany Khanna PA-C TOPROL XL 100 MG 12-15-2011 [facility] [id number] One tablet by Group (4 4691) mouth daily- STOP replaced by coreg METOPROLOL SUCCINATE 85265971939 Melany Khanna PA-C TOPROL XL 100 MG 12-15-2011 - [facility] [id number] One tablet by 12-11-2014 Group (4 4691) mouth daily- STOP replaced by coreg METOPROLOL SUCCINATE 18105817699 Melissa Marks RN TOPROL XL 100 MG 12-15-2011 Melissa Marks RN [facility] [id number] One tablet by Group (4 4691) mouth daily METOPROLOL SUCCINATE [id number] Johan Perry MD TOPROL XL 100 MG 12-15-2011 [facility] [id number] One tablet by Group (4 4691) mouth daily- STOP replaced by coreg METOPROLOL SUCCINATE 41376267888 Melany Khanna PA-C TOPROL XL 100 MG 12-15-2011 - [facility] [id number]-GAJ One tablet by 12-11-2014 Group (4 4691) mouth daily- STOP replaced by coreg METOPROLOL SUCCINATE 32843250060 Melissa Marks RN TOPROL XL 100 MG 12-15-2011 Melissa Marks RN [facility] [id number] One tablet by Group (4 4691) mouth daily METOPROLOL SUCCINATE 54696699162 Johan Perry MD TOPROL XL 50 MG 08-26-2011 Rahul Allen [facility] [id number]-[id number] (METOPROLOL Nicomaritza SIMMONS Group ([phone]) SUCCINATE) one tablet by mouth twice a day Rahul Anaya MD TOPROL XL 50 MG 08-26-2011 Rahul Allen [facility] [id number] (METOPROLOL Héctor SIMMONS Group ([phone]) SUCCINATE) one tablet by mouth twice a day Rahul Anaya MD TOPROL XL 50 MG 08-26-2011 Rahul Allen [facility] [id number] (METOPROLOL Nicomaritza SIMMONS Group ([phone]) SUCCINATE) one tablet by mouth twice a day Rahul Anaya MD TOPROL XL 50 MG 08-26-2011 Rahul Allen [facility] [id number] (METOPROLOL Nicomaritza SIMMONS Group ([phone]) SUCCINATE) one tablet by mouth twice a day Rahul Anaya MD TOPROL XL 50 MG 08-26-2011 Rahul Allen [facility] [id number] (METOPROLOL Nicolozaaretha SIMMONS Group ([phone]) SUCCINATE) one tablet by mouth twice a day Rahul Anaya MD TOPROL XL 50 MG 08-26-2011 Rahul Allen [facility] [id number] (METOPROLOL Nicolozaaretha SIMMONS Group (446 91) SUCCINATE) one tablet by mouth twice a day Rahul Anaya MD TOPROL XL 50 MG 08-26-2011 Rahul Allen [facility] [id number]-[id number] (METOPROLOL Nicolozaaretha SIMMONS Group (446 91) SUCCINATE) one tablet by mouth twice a day Rahul Anaya MD TOPROL XL 50 MG 08-26-2011 Rahul Allen [facility] [id number] (METOPROLOL Nicolozaaretha SIMMONS Group (446 91) SUCCINATE) one tablet by mouth twice a day Rahul Anaya MD TOPROL XL 50 MG 08-26-2011 Rahul Allen [facility] [id number] (METOPROLOL Nicolozaaretha SIMMONS Group (446 91) SUCCINATE) one tablet by mouth twice a day Rahul Anaya MD TOPROL XL 50 MG 08-26-2011 Rahul Allen [facility] [id number] (METOPROLOL Nicolozaaretha SIMMONS Group (446 91) SUCCINATE) one tablet by mouth twice a day Rahul Anaya MD TOPROL XL 50 MG 08-26-2011 Rahul Allen [facility] [id number] (METOPROLOL Nicolozaaretha SIMMONS Group (446 91) SUCCINATE) one tablet by mouth twice a day Rahul Anaya MD TOPROL XL 50 MG 08-26-2011 Rahul Allen [facility] [id number] (METOPROLOL Nicolozakes Group (446 91) SUCCINATE) one tablet by mouth twice a day Rahul Anaya MD TOPROL XL 50 MG 08-26-2011 Rahul Allen [facility] [id number] (METOPROLOL Nicolozaaretha SIMMONS Group ([phone]) SUCCINATE) one tablet by mouth twice a day Rahul Anaya MD TOPROL XL 50 MG 08-26-2011 Rahul Allen [facility] [id number]-[id number] (METOPROLOL Nicolopanchito SIMMONS Group ([phone]) SUCCINATE) one tablet by mouth twice a day Rahul Anaya MD TOPROL XL 50 MG 08-26-2011 Rahul Allen [facility] [id number]-[id number] (METOPROLOL Nicolozaaretha SIMMONS Group (459 88) SUCCINATE) one tablet by mouth twice a day Rahul Anaya MD TOPROL XL 50 MG 08-26-2011 Rahul Allen [facility] [id number] (METOPROLOL Nicolozaaretha SIMMONS Group (252 56) SUCCINATE) one tablet by mouth twice a day Rahul Anaya MD TOPROL XL 100 MG 06-10-2011 - [facility] [id number] 07-03-2011 Group (4469 1) METOPROLOL SUCCINATE [id number] Rahul Anaya MD TOPROL XL 100 MG 06-10-2011 - [facility] [id number] 07-03-2011 Group (4469 1) METOPROLOL SUCCINATE [id number] Funmilayo Morales RN TOPROL XL 50 MG 07-16-2010 [facility] [id number]-[id number] One tablet by Group (4 4691) mouth twice daily METOPROLOL SUCCINATE [id number] Tracee Beard TOPROL XL 50 MG 07-16-2010 [facility] [id number] One tablet by Group (4 4691) mouth twice daily METOPROLOL SUCCINATE 39252953450 Tracee Cordova Beard TOPROL XL 50 MG 07-16-2010 [facility] [id number]-ERH One tablet by Group (4 4691) mouth twice daily METOPROLOL SUCCINATE 35112838895 Tracee Beard TOPROL XL 50 MG 07-16-2010 [facility] [id number]-[id number] One tablet by Group (4 4691) mouth twice daily METOPROLOL SUCCINATE 22263937435 Tracee Cordova Beard TOPROL XL 50 MG 07-16-2010 [facility] [id number]-ICH One tablet by Group (4 4691) mouth twice daily METOPROLOL SUCCINATE 04117292799 Tracee Cordova Beard TOPROL XL 50 MG 07-16-2010 [facility] [id number] One tablet by Group (4 4691) mouth twice daily METOPROLOL SUCCINATE 38850175981 Tracee Cordova Beard TOPROL XL 50 MG 07-16-2010 [facility] [id number] One tablet by Group (4 4691) mouth twice daily METOPROLOL SUCCINATE 11009581191 Tracee Cordova Beard TOPROL XL 50 MG 07-16-2010 [facility] [id number]-[id number] One tablet by Group (4 4691) mouth twice daily METOPROLOL SUCCINATE 04565959604 Tracee Cordova Beard TOPROL XL 50 MG 07-16-2010 [facility] [id number]-NMU One tablet by Group (4 4691) mouth twice daily METOPROLOL SUCCINATE 11128678364 Tracee Cordova Beard TOPROL XL 50 MG 07-16-2010 [facility] [id number] One tablet by Group (4 4691) mouth twice daily METOPROLOL SUCCINATE 29732793650 Tracee Beard niacin NIACIN ER 1000 MG CR-TABS 09-22-2014 - 11-03-2014 [facility] One tablet by mouth daily (4 4691) NIACIN [id number] Jhoan Perry MD NIASPAN 1000 MG CR-TABS One 07-16-2010 - [facility] tablet by mouth twice daily 11-25-2012 Grou p (92321) NIACIN (ANTIHYPERLIPIDEMIC) 20796190899 Johan Perry MD NIASPAN 1000 MG CR-TABS One 07-16-2010 - [facility] tablet by mouth twice daily 11-25-2012 Grou p (62484) NIACIN (ANTIHYPERLIPIDEMIC) 67767681379 Johan Perry MD nitroglycerin NITRO-DUR 0.2 MG/HR 08-26-2011 - Funmialyo Morales RN [facility] Heart PT24 on every morning 11-25-2012 Group (66851) off qhs NITROGLYCERIN [id number] Rahul Anaya MD NITRO-DUR 0.2 MG/HR PT24 08-25-2011 - 11-25-2012 [facility] on every morning off qhs (82910) NITROGLYCERIN [id number] Johan Perry MD NITRO-DUR 0.2 MG/HR PT24 08-26-2011 Funmilayo Morales RN [facility] on every morning off qhs (01002) NITROGLYCERIN [id number] Rahul Anaya MD NITRO-DUR 0.2 MG/HR PT24 08-25-2011 - 11-25-2012 [facility] on every morning off qhs (85311) NITROGLYCERIN [id number] Johan Perry MD NITRO-DUR 0.2 MG/HR PT24 08-26-2011 Funmilayo Morales RN [facility] on every morning off qhs (76302) NITROGLYCERIN [id number] Rahul Anaya MD NITRO-DUR 0.2 MG/HR PT24 08-25-2011 - 11-25-2012 [facility] on every morning off qhs (60961) NITROGLYCERIN [id number] Johan Perry MD NITRO-DUR 0.2 MG/HR PT24 08-26-2011 Funmilayo Morales RN [facility] on every morning off qhs (09495) NITROGLYCERIN [id number] Rahul Anaya MD NITRO-DUR 0.2 MG/HR PT24 08-25-2011 - 11-25-2012 [facility] on every morning off qhs (56163) NITROGLYCERIN [id number] Johan Perry MD NITRO-DUR 0.2 MG/HR PT24 08-26-2011 [facility] on every morning off qhs (97154) NITROGLYCERIN [id number] Rahul Anaya MD NITRO-DUR 0.2 MG/HR PT24 08-25-2011 - 11-25-2012 [facility] on every morning off qhs (63868) NITROGLYCERIN [id number] Johan Perry MD NITRO-DUR 0.2 MG/HR PT24 08-26-2011 [facility] on every morning off qhs (13861) NITROGLYCERIN [id number] Rahul Anaya MD NITRO-DUR 0.2 MG/HR PT24 08-25-2011 - 11-25-2012 [facility] on every morning off qhs (37981) NITROGLYCERIN [id number] Johan Perry MD NITRO-DUR 0.2 MG/HR PT24 08-26-2011 DR[facility] on every morning off qhs (13866) NITROGLYCERIN [id number] Rahul Anaya MD NITRO-DUR 0.2 MG/HR PT24 08-26-2011 DRAG[facility] on every morning off qhs (87256) NITROGLYCERIN [id number] Rahul Anaya MD NITRO-DUR 0.2 MG/HR PT24 08-25-2011 - 11-25-2012 [facility] on every morning off qhs (22062) NITROGLYCERIN [id number] Johan Perry MD NITRO-DUR 0.2 MG/HR PT24 08-26-2011 DR[facility] on every morning off qhs (12969) NITROGLYCERIN [id number] Rahul Anaya MD NITRO-DUR 0.2 MG/HR PT24 08-25-2011 - 11-25-2012 [facility] on every morning off qhs (01688) NITROGLYCERIN [id number] Johan Perry MD NITRO-DUR 0.2 MG/HR PT24 08-25-2011 - 11-25-2012 [facility] on every morning off qhs (41627) NITROGLYCERIN [id number] Johan Perry MD NITRO-DUR 0.2 MG/HR PT24 08-26-2011 Funmilayo Morales RN [facility] on every morning off qhs (86644) NITROGLYCERIN [id number] Rahul Anaya MD NITROGLYCERIN 0.2 MG/HR 12-16-2010 - 06-27-2011 [facility] PT24 Patch, on Q AM, off Q ([phone] 1) HS NITROGLYCERIN [id number] Rahul Anaya MD NITROSTAT 0.4 MG SUBL 1 07-16-2010 [facility] tablet under tongue every (90818 ) 5 min up to 3 X NITROGLYCERIN [id number] Kath Esquivel MD NITROGLYCERIN 0.3 MG 02-28-2005 [facility] Provider [facility] [place] rt Group SUBLINGUAL TAB Dissolve (46162) 0.4 mg under the tongue. Usual dose for angina is 1 tablet every 5 minutes for maximum of 3 doses in 15 minutes. 0 02/28/2005 Active Comment: Dissolve 0.4 mg under the to ngue. Usual dose for angina is 1 tablet every 5 minutes for maximum of 3 doses in 15 minutes. Nortriptyline nortriptyline (PAMELOR) 11-16-2019 Morgan Valdez [facility] 25 mg capsule (29591) Indications: Type 2 diabetes mellitus with peripheral neuropathy (HCC) Take 1 capsule by mouth daily at bedtime. 30 capsule 5 11/16/2019 Active Comment: Take 1 capsule by mouth ajay y at bedtime. nph insulin, human HUMULIN N 100 UNIT/ML SUSP 08-26-2011 [facility] take as directed (95677) INSULIN ISOPHANE HUMAN [id number] Johan Perry MD HUMULIN N 100 UNIT/ML SUSP take as directed 08-26-2011 [facility] (43878) INSULIN ISOPHANE HUMAN [id number] Johan Perry MD HUMULIN N 100 UNIT/ML SUSP take as directed 08-26-2011 [facility] (68488) INSULIN ISOPHANE HUMAN [id number] Johan Perry MD HUMULIN N 100 UNIT/ML SUSP take as directed 08-26-2011 [facility] (91661) INSULIN ISOPHANE HUMAN [id number] Johan Perry MD HUMULIN N 100 UNIT/ML SUSP take as directed 08-26-2011 [facility] (29388) INSULIN ISOPHANE HUMAN [id number] Johan Perry MD HUMULIN N 100 UNIT/ML SUSP take as directed 08-26-2011 [facility] (78909) INSULIN ISOPHANE HUMAN [id number] Johan Perry MD HUMULIN N 100 UNIT/ML SUSP take as directed 08-26-2011 [facility] (68916) INSULIN ISOPHANE HUMAN [id number] Johan Perry MD HUMULIN N 100 UNIT/ML SUSP take as directed 08-26-2011 [facility] (62112) INSULIN ISOPHANE HUMAN [id number] Johan Perry MD HUMULIN N 100 UNIT/ML SUSP take as directed 08-26-2011 [facility] (50040) INSULIN ISOPHANE HUMAN [id number] Johan Perry MD HUMULIN N 100 UNIT/ML SUSP take as directed 08-26-2011 [facility] (76696) INSULIN ISOPHANE HUMAN [id number] Johan Perry MD omeprazole PRILOSEC 40 MG CPDR One tablet by 08-26-2011 [facility] (67670) mouth twice daily.11 OMEPRAZOLE [id number] Rahul Anaya MD OMEPRAZOLE 20 MG CPDR One tablet by mouth 08-26-2011 [facility] (17329) twice daily OMEPRAZOLE [id number] Vicki Kirkpatrick RN OMEPRAZOLE 20 MG CPDR One tablet by mouth 08-26-2011 [facility] (03225) daily OMEPRAZOLE [id number] Johan Perry MD PRILOSEC 40 MG CPDR One tablet by mouth 08-26-2011 [facility] (38694) twice daily.11 OMEPRAZOLE [id number] Rahul Anaya MD PRILOSEC 40 MG CPDR One tablet by mouth 08-26-2011 [facility] (40141) twice daily.11 OMEPRAZOLE [id number] Rahul Anaya MD PRILOSEC 40 MG CPDR .12 06-10-2011 [facility] (59548) OMEPRAZOLE [id number] Rahul Anaya MD PRILOSEC 40 MG CPDR .12 06-10-2011 [facility] (31186) OMEPRAZOLE [id number] Rahul Anaya MD PRILOSEC 40 MG CPDR .12 06-10-2011 [facility] (08271) OMEPRAZOLE [id number] Rahul Anaya MD Ondansetron ZOFRAN 8 MG TABS 1 12-30-2016 - [facility] by mouth every 01-01-2017 Group (67050) 8 hours as needed ONDANSETRON HCL [id number] Melany Khanna PA-C pantoprazole PANTOPRAZOLE SODIUM 08-26-2011 Melany Marks [facility] 40 MG TBEC One tablet [facility] (53920) by mouth daily PANTOPRAZOLE SODIUM [id number] Melany M Khanna, PA-C Comment: Take 40 mg by mouth once rustam ly. potassium chloride KLOR-CON M10 10 MEQ 10-09-2011 - [facility] CR-TABS One tablet by 09-04-2016 (23951 ) mouth daily POTASSIUM CHLORIDE GISELE CR [id number] MD LIANE RogersCON M10 10 MEQ 10-09-2011 [facility] CR-TABS One tablet by (11775) mouth daily POTASSIUM CHLORIDE GISELE CR [id number] MD LIANE RogersCON M10 10 MEQ 10-09-2011 Melany [facility] CR-TABS One tablet by RN (18455) mouth daily POTASSIUM CHLORIDE GISELE CR [id number] MD LIANE RogersCON M10 10 MEQ 10-09-2011 Melissa [facility] CR-TABS One tablet by (82145) mouth daily POTASSIUM CHLORIDE GISELE CR [id number] MD LIANE RogersCON M10 10 MEQ 10-09-2011 - [facility] CR-TABS One tablet by 09-04-2016 (58024) mouth daily POTASSIUM CHLORIDE GISELE CR [id number] MD LIANE RogersCON M10 10 MEQ 10-09-2011 Melany [facility] CR-TABS One tablet by RN (25580) mouth daily POTASSIUM CHLORIDE GISELE CR [id number] MD LIANE RogersCON M10 10 MEQ 10-09-2011 - [facility] CR-TABS One tablet by 09-04-2016 (26895) mouth daily POTASSIUM CHLORIDE GISELE CR [id number] MD LIANE RogersCON M10 10 MEQ 10-09-2011 Mel[facility] CR-TABS One tablet by DRAGAN (94696) mouth daily POTASSIUM CHLORIDE GISELE CR [id number] [place] MD LIANE ZuletaCON M10 10 MEQ 10-09-2011 [facility] CR-TABS One tablet by (33267) mouth daily POTASSIUM CHLORIDE GISELE CR [id number] Johan MD LIANE ZuletaCON M10 10 MEQ 10-09-2011 [facility] CR-TABS One tablet by (24708) mouth daily POTASSIUM CHLORIDE GISELE CR [id number] JohanMD LIANE SuhCON M10 10 MEQ 10-09-2011 Melany [facility] CR-TABS One tablet by RN (49475) mouth daily POTASSIUM CHLORIDE GISELE CR [id number] MD LIANE RogersCON M10 10 MEQ 10-09-2011 - [facility] CR-TABS One tablet by 09-04-2016 (69442) mouth daily POTASSIUM CHLORIDE GISELE CR [id number] [place] MD LIANE ZuletaCON M10 10 MEQ 10-09-2011 Melany Cosme [facility] CR-TABS One tablet by RN (80927) mouth daily POTASSIUM CHLORIDE GISELE CR [id number] MD LIANE RogersCON M10 10 MEQ 10-09-2011 [facility] CR-TABS One tablet by (16494) mouth daily POTASSIUM CHLORIDE GISELE CR [id number] MD LIANE RogersCON M10 10 MEQ 10-09-2011 [facility] CR-TABS One tablet by (84089) mouth daily POTASSIUM CHLORIDE GISELE CR [id number] MD LIANE RogersCON M10 10 MEQ 10-09-2011 Melany [facility] CR-TABS One tablet by DRAGAN (58815) mouth daily POTASSIUM CHLORIDE GISELE CR [id number] MD LIANE RogersCON M10 10 MEQ 10-09-2011 Melany Cosme [facility] CR-TABS One tablet by RN (54364) mouth daily POTASSIUM CHLORIDE GISELE CR [id number] MD LIANE RogersCON M10 10 MEQ 10-09-2011 [facility] CR-TABS One tablet by (15133) mouth daily POTASSIUM CHLORIDE GISELE CR [id number] MD LIANE RogersCON M10 10 MEQ 10-09-2011 [facility] CR-TABS One tablet by (46816) mouth daily POTASSIUM CHLORIDE GISELE CR [id number] MD LIANE RogersCON M10 10 MEQ 10-09-2011 Melany Cosme [facility] CR-TABS One tablet by RN (80324) mouth daily POTASSIUM CHLORIDE GISELE CR [id number] MD LIANE RogersCON M10 10 MEQ 10-09-2011 [facility] CR-TABS One tablet by (46961) mouth daily POTASSIUM CHLORIDE GISELE CR [id number] MD LIANE RogersCON M10 10 MEQ 10-09-2011 Melany Cosme [facility] CR-TABS One tablet by RN (72870) mouth daily POTASSIUM CHLORIDE GISELE CR [id number] MD LIANE RogersCON M10 10 MEQ 11-25-2010 - Mel[facility] CR-TABS One tablet by 09-04-2016 RN (67990) mouth daily POTASSIUM CHLORIDE GISELE CR [id number] Johan Perry MD ramipril ALTACE 10 MG CAPS One 07-16-2010 - 06-10-2011 [facility] tablet by mouth twice daily (25413) RAMIPRIL [id number] Rahul Anaya MD ALTACE 10 MG CAPS One tablet by 07-16-2010 - 06-09-2011 [facility] (26443) mouth twice daily RAMIPRIL [id number] Rahul Anaya MD ranolazine ranolazine SR (RANEXA) 02-15-[address] [facility] 1,000 mg Tb12 Take 1 (56598) tablet by mouth twice daily. 0 05/04/2016 Active RANEXA 500 MG [id number] 02-15-2016 Melissa Marks RN [facility] One tablet by mouth (07232) twice daily RANOLAZINE [id number] Beverly Henry EXPLOSION WELDER RANEXA 500 MG [id number] 02-15-2016 Melissa Marks RN [facility] One tablet by mouth (91970) twice daily RANOLAZINE [id number] Beverly Henry EXPLOSION WELDER RANEXA 1000 MG [id number]-[id number] 02-15-[address] [facility] One tablet by mouth RN (53060) twice daily RANOLAZINE [id number] Melany Khanna PA-C RANEXA 500 MG [id number]-[id number] 02-15-2016 Melissa Marks RN [facility] One tablet by mouth (61054) twice daily RANOLAZINE [id number] Beevrly Henry NP RANEXA 1000 MG [id number] 02-15-[address] [facility] One tablet by mouth RN (61959) twice daily RANOLAZINE [id number] Melany Khanna PA-C RANEXA 500 MG [id number]-[id number] 02-15-2016 Melissa Marks RN [facility] One tablet by mouth (46923) twice daily RANOLAZINE [id number] Beverly Henry EXPLOSION WELDER RANEXA 1000 MG [id number] 02-15-[address] [facility] One tablet by mouth RN (84928) twice daily RANOLAZINE [id number] Melany Khanna PA-C RANEXA 1000 MG [id number] 02-15-[address] [facility] One tablet by mouth RN (85275) twice daily RANOLAZINE [id number] Melany Khanna PA-C RANEXA 500 MG [id number] 02-15-2016 Melissa Marks RN [facility] One tablet by mouth (32090) twice daily RANOLAZINE [id number] Beverly Henry EXPLOSION WELDER RANEXA 500 MG [id number] 02-15-2016 [facility] One tablet by mouth (84056) twice daily RANOLAZINE [id number] Beverly Henry EXPLOSION WELDER RANEXA 1000 MG [id number] 02-15-[address] [facility] One tablet by mouth RN (15848) twice daily RANOLAZINE [id number] Melany Khanna PA-C RANEXA 500 MG [id number]-XHH 02-15-2016 [facility] One tablet by mouth (36753) twice daily RANOLAZINE [id number] Beverly Henry EXPLOSION WELDER RANEXA 1000 MG [id number] 02-15-[address] [facility] One tablet by mouth RN (55334) twice daily RANOLAZINE [id number] Melany Khanna PA-C RANEXA 1000 MG [id number] 02-15-[address] [facility] One tablet by mouth RN (66510) twice daily RANOLAZINE [id number] Melany Khanna PA-C RANEXA 500 MG [id number]-FLV 02-15-2016 [facility] One tablet by mouth (26549) twice daily RANOLAZINE [id number] Beverly Henry EXPLOSION WELDER RANEXA 1000 MG [id number] 02-15-[address] [facility] One tablet by mouth RN (85843) twice daily RANOLAZINE 53919841640 Melany Khanna PA-C RANEXA 500 MG [id number] 02-15-2016 Melissa Marks RN [facility] One tablet by mouth (87580) twice daily RANOLAZINE [id number] Beverly Henry EXPLOSION WELDER RANEXA 1000 MG [id number] 02-15-[address] [facility] One tablet by mouth RN ([id number]) twice daily RANOLAZINE [id number] Melany Khanna PA-C RANEXA 500 MG [id number] 02-15-2016 Melissa Marks RN [facility] One tablet by mouth ([id number]) twice daily RANOLAZINE [id number] Beverly Henry EXPLOSION WELDER RANEXA 500 MG [id number] 02-07-2015 - [facility] One tablet by mouth 07-03-2015 ([id number]) twice daily RANOLAZINE [id number] Johan Perry MD RANEXA 500 MG [id number] 02-07-2015 - [facility] One tablet by mouth 07-03-2015 ([id number]) twice daily RANOLAZINE [id number] Johan Perry MD RANEXA 500 MG [id number] 02-07-2015 Jessica Odom RN Garcia [facility] One tablet by mouth (39841) twice daily RANOLAZINE [id number] Johan Perry MD RANEXA 500 MG [id number] 02-07-2015 Jessica Odom RN [facility] One tablet by mouth (48882) twice daily RANOLAZINE [id number] Johan Perry MD RANEXA 500 MG [id number] 02-07-2015 - [facility] One tablet by mouth 07-03-2015 (63264) twice daily RANOLAZINE [id number] Johan Perry MD RANEXA 500 MG [id number] 02-07-2015 Jessica Odom RN [facility] One tablet by mouth (19042) twice daily RANOLAZINE [id number] Johan Peryr MD RANEXA 500 MG [id number] 02-07-2015 - [facility] One tablet by mouth 07-03-2015 (92017) twice daily RANOLAZINE [id number] Johan Perry MD RANEXA 500 MG [id number] 02-07-2015 - [facility] One tablet by mouth 07-03-2015 (49140) twice daily RANOLAZINE [id number] Johan Perry MD RANEXA 500 MG [id number] 02-07-2015 Jessica Odom RN [facility] One tablet by mouth (73991) twice daily RANOLAZINE [id number] Johan Perry MD RANEXA 500 MG [id number] 02-07-2015 Jessica Odom RN [facility] One tablet by mouth (07593) twice daily RANOLAZINE [id number] Johan Perry MD RANEXA 500 MG [id number] 02-07-2015 - [facility] One tablet by mouth 07-03-2015 (41667) twice daily RANOLAZINE [id number] Johan Perry MD RANEXA 500 MG [id number] 02-07-2015 - [facility] One tablet by mouth 07-03-2015 (25646) twice daily RANOLAZINE [id number] Johan Perry MD RANEXA 500 MG [id number] 02-07-2015 Jessica Odom RN [facility] One tablet by mouth (40179) twice daily RANOLAZINE [id number] Johan Perry MD RANEXA 500 MG [id number] 02-07-2015 Jessica Odom RN [facility] One tablet by mouth (92427) twice daily RANOLAZINE [id number] Johan Perry MD RANEXA 500 MG [id number] 02-07-2015 - [facility] One tablet by mouth 07-03-2015 (05867) twice daily RANOLAZINE [id number] Johan Perry MD RANEXA 500 MG [id number] 02-07-2015 - [facility] One tablet by mouth 07-03-2015 (61528) twice daily RANOLAZINE [id number] Johan Perry MD RANEXA 500 MG [id number] 02-07-2015 Jessica Odom RN [facility] One tablet by mouth (44179) twice daily RANOLAZINE [id number] Johan Perry MD RANEXA 500 MG [id number] 02-07-2015 - [facility] One tablet by mouth 07-03-2015 (44592) twice daily RANOLAZINE [id number] Johan Perry MD RANEXA 500 MG [id number] 02-07-2015 Jessica Odom RN [facility] One tablet by mouth (39792) twice daily RANOLAZINE [id number] Johan Perry MD Comment: Take 1 tablet by mouth twice daily. Regular Insulin, insulin regular human 11-08-2019 - Deniz Roy [facility] Human (NOVOLIN R REGULAR 12-12-2019 (42918) U-100 INSULN) 100 unit/mL injection Indications: Type 2 diabetes mellitus with st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, with long-term current use of insulin ([facility]) Inject 15 units Subcutaneously three [...] rOPINIRole rOPINIRole (REQUIP) 0.5 10-20-2019 Morgan Mooney [facility] (91683) mg tablet Take 1 tablet by mouth [...] twice (4 4691) daily SOTALOL HCL AF [id number] Rahul Anaya MD SOTALOL HCL (AF) 80 MG TABS One 07-04-2011 [facility] (64437) tablet by mouth twice daily SOTALOL HCL AF [id number] Funmilayo Morales RN SOTALOL HCL (AF) 80 MG TABS One 07-04-2011 - 03-04-2012 [facility] (57758) tablet by mouth twice daily SOTALOL HCL AF [id number] Rahul Anaya MD SOTALOL HCL (AF) 80 MG TABS One 07-04-2011 [facility] (77514) tablet by mouth twice daily SOTALOL HCL AF [id number] Funmilayo Morales RN SOTALOL HCL (AF) 80 MG TABS One 07-04-2011 [facility] (56083) tablet by mouth twice daily SOTALOL HCL AF [id number] Funmilayo Morales RN SOTALOL HCL (AF) 80 MG TABS One 07-04-2011 - 03-04-2012 [facility] (29352) tablet by mouth twice daily SOTALOL HCL AF [id number] Rahul Anaya MD SOTALOL HCL (AF) 80 MG TABS One 07-04-2011 - 03-04-2012 [facility] (44120) tablet by mouth twice daily SOTALOL HCL AF [id number] Funmilayo Morales RN SOTALOL HCL (AF) 80 MG TABS One 07-04-2011 - 03-04-2012 [facility] (71315) tablet by mouth twice daily SOTALOL HCL AF [id number] Rahul Anaya MD SOTALOL HCL (AF) 120 MG TABS One 07-03-2011 [facility] (33619) tablet by mouth twice daily SOTALOL HCL AF [id number] Funmilayo Morales RN SOTALOL HCL (AF) 120 MG TABS One 07-03-2011 [facility] (58219) tablet by mouth twice daily SOTALOL HCL AF [id number] Funmilayo Morales RN SOTALOL HCL (AF) 120 MG TABS One 07-03-2011 [facility] (81701) tablet by mouth twice daily SOTALOL HCL AF [id number] Funmilayo Morales RN SOTALOL HCL (AF) 120 MG TABS One 07-03-2011 [facility] (98710) tablet by mouth twice daily SOTALOL HCL AF [id number] Funmilayo Morales RN SOTALOL HCL (AF) 120 MG TABS One 07-03-2011 [facility] (48485) tablet by mouth twice daily SOTALOL HCL AF [id number] Funmilayo Morales RN Spironolactone spironolactone 11-26-2017 Morgan Valdez [facility] (ALDACTONE) 25 mg tablet (44 195) Take 1 tablet by mouth once daily. 0 11/26/2017 Active Comment: Take 1 tablet by mouth once daily. traZODone traZODone (DESYREL) 50 09-16-2019 - Deniz Mathur Ady Qu[facility] mg tablet Indications: 03-14-2020 (4419 5) Sleep difficulties Take 2 tablets by mouth daily at bedtime. 180 tablet 1 09/16/2019 03/14/2020 Active Comment: Take 2 tablets by mouth ajay y at bedtime. warfarin warfarin (COUMADIN) 3 mg 09-01-2019 Morgan Valdez [facility] tablet Indications: Chronic (32886) atrial fibrillation (HCC) 3 mg every Mon, Wed, Fri; 6 mg all other days 150 tablet 3 09/01/2019 Active COUMADIN 1 MG TABS Take as directed 3 08-26-2011 [facility] (10201) tablets by mouth one 5mg tablet to =8mg daily WARFARIN SODIUM [id number] Rahul Anaya MD COUMADIN 1 MG TABS managed by Dr. Hunt 08-26-2011 [facility] (60083) Cebul WARFARIN SODIUM [id number] Johan Perry MD COUMADIN 5 MG TABS managed by Dr. Hunt 08-26-2011 [facility] (52620) Cebul WARFARIN SODIUM [id number] Johan Perry MD COUMADIN 5 MG TABS Take as directed 5mg 08-26-2011 [facility] (83437) daily with three 1mg tablets to =8mg daily WARFARIN SODIUM [id number] Rahul Anaya MD Comment: 3 mg every Mon, Wed, Fri; 6 mg all other days Problems Active Problems Category Problem Name Status Date Location Acute myocardial Subsequent non-ST Active 12-11-2014 - [facility] infarction segment elevation - 06-26-2015 (36383) myocardial infarction - Cardiac dysrhythmias Atrial fibrillation Active 07-16-2010 - [facility] (64219) Conduction disorders Automatic implantable Active [facility] cardiac defibrillator in (44 195) situ Congestive heart Acute on chronic Active 12-17-2018 - [facility] failure; systolic heart failure (4419 5) nonhypertensive 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 - [facility] atherosclerosis and infarction - 06-26-2015 (62601) other heart disease - Diabetes mellitus Type 2 diabetes mellitus Active 06-15-2017 - [facility] without complication (53345) Diseases of white blood Leukocytosis Active 01-29-2013 - [facility] cells (69129) Disorders of lipid Hyperlipidemia Active 07-16-2010 - [facility] metabolism (57030) Esophageal disorders Gastroesophageal reflux Active 8 - [facility] disease (36384) Essential hypertension Essential hypertension Active 07-17-19 11 - [facility] (91512) Hyperplasia of prostate Benign prostatic Active 09-16-2007 - [facility] hypertrophy with outflow (44 195) obstruction Inflammatory conditions Balanitis Active 11-16-2016 - [facility] of male genital organs (4419 5) Other and ill-defined Cardiomegaly Active [facility] heart disease (86934) Other hereditary and Restless legs Active 07-28-2018 - [facility] degenerative nervous (76836) system conditions Other nutritional; Body mass index (BMI) Active 03-08-2013 - [facility] endocrine; and 38.0-38.9, adult (95194) metabolic disorders Other nutritional; Body mass index (BMI) Active 03-08-2013 - [facility] endocrine; and 37.0-37.9, adult (76255) metabolic disorders Other nutritional; Body mass index (BMI) Active 03-08-2013 - [facility] endocrine; and 34.0-34.9, adult (85258) metabolic disorders Other nutritional; Body mass index (BMI) Active 03-08-2013 - [facility] endocrine; and 35.0-35.9, adult [facility] metabolic disorders (60434) Other nutritional; Body mass index (BMI) Active 03-08-2013 - [facility] endocrine; and 36.0-36.9, adult - 03-29-2015 (33235) metabolic disorders - Other nutritional; Obesity Active 09-16-2011 - [facility] endocrine; and (73112) metabolic disorders Residual codes; Obstructive sleep apnea Active 07-26-2018 - [facility] unclassified syndrome (43757) Screening or history of Tobacco dependence Active 07-16-2010 - [facility] mental health and syndrome - 12-30-2016 (35590) substance abuse - Spondylosis; Arthritis of facet joint Active 07-14-2017 - [facility] intervertebral disc of lumbar spine (4419 5) disorders; other back problems Unclassified Type 2 diabetes mellitus Active 03-29-2015 - [facility] with diabetic peripheral (44 691) angiopathy without gangrene Unclassified Anticoagulant effect Active 07-03-2011 - [facility] (90986) Unclassified Placement of stent in Active 07-16-2010 - [facility] coronary artery (56932) Unclassified Long-term drug therapy Active 07-16-2010 - 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 Completed 07-16-2010 [facility] (current) drug therapy - Group (66977) Other and unspecified Benign neoplasm of Completed 02-21-2009 [facility] benign neoplasm colon - (89158) Other circulatory Carotid bruit Completed 03-14-2016 [facility] disease - Group (17279) Other circulatory Low blood pressure Completed 08-18-[address] [facility] disease - - Group ([id number]) 06-26-2015 - Other diseases of veins Stasis dermatitis Completed 04-05-2013 [facility] and lymphatics - (19923) Other gastrointestinal Dysphagia Completed 03-01-2015 [facility] disorders - (66349) Other hematologic High troponin I level Completed 01-29-[address] [facility] conditions - (50086) Other lower respiratory Dyspnea, unspecified Completed 5 [place] disease - - Medical Service , 06-26-2015 [facility] (88300) - Other lower respiratory Dyspnea on exertion Completed 12-06-2014 [facility] disease - - Group (06653) 06-26-2015 - Other skin disorders Localized swelling, Completed 07-28-2018 [facility] mass and lump, neck - (68579) Other skin disorders Foot callus Completed 10-04-2014 [facility] - (14514) Phlebitis; H/O: Deep vein Completed 01-26-2018 [place] [facility] thrombophlebitis and thrombosis - (87163) thromboembolism Residual codes; Past history of Completed 11-16-2016 [facility] unclassified procedure - (39951) Syncope Vasovagal syncope Completed 12-16-2010 [facility] - [facility] ([id number]) 06-26-2015 - Unclassified Family history of Completed 01-26-2018 [facility] stroke - Group ([id number]) Unclassified Preoperative Completed 11-03-2014 [facility] - - Group (79319) examination 12-25-2014 - Unclassified Type 1 diabetes Completed 07-16-2010 [facility] mellitus with diabetic - - Group ([id number]) peripheral angiopathy 12-30-2016 without gangrene - Results Result Name Value Range Unit Interpretation Flag Date Location obsolete on 2019-12 OBSOLETE Refill (FAMPWS) Normal 01-06-2020 [facility] LOVELY DEVI ([id number]) 1945 [facility] Date Time Provider Department ([id number]) 01/06/20 MORGAN VALDEZ III FAMPWS During your [...] skin Date Reviewed: 10/27/2019 Reviewed by: Linwood ([facility]) JAZZY Carpenter - Fully Assessed Reason for Visit: Refill Request [94] Visit Diagnosis: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, with long-term current use of insulin ([facility]) [E11.40, Z79.4] Order(s):gabapentin (NEURONTIN) 300 [...] by MORGAN VALDEZ III, MD [facility]/06/[facility]) Normal 12-27-2019 [place] [facility] LOVELY DEVI ([id number]) 1945 [facility] Date Time Provider Department ([id number]) 12/27/19 MORGAN VALDEZ IIIVIVEK During your visit [...] Fully Assessed Reason for Visit: Patient Question [5687] Prescriptions as of 12/27/2019 Sig: INSULIN LISPRO [...] * Take 60 mg by mouth once jaay * BLOOD SUGAR DIAGNOSTIC STRIPS Use as instructed to check bl* RANOLAZINE ER 1,000 MG TABLET* Take 1 tablet by mouth twice * FENOFIBRATE NANOCRYSTALLIZED * Take 1 tablet by mouth once d * PANTOPRAZOLE 40 MG TABLET,DEL* Take 40 mg by mouth once ajay * LANCETS Use with hyperWALLET Systemsuch Glucometer * ASPIRIN 81 MG TABLET Take [...] on 12/28/19 cnpn on 2019-12-20 CNPN Telephone ([facility]) Normal 12-20-2019 [place] [facility] LOVELY DEVI ([id number]) 1945 [facility] Time Provider Department ([id number]) 12/20/19 ANDRE (PHARMACIST), LEE COTTER During your visit today, we recorded the following informati on about you: Lee Moss Pharmacist 12/20/2019 5:07 PM Signed Patient was due to test INR today. Will continue to monitor for results. Lee Moss, Pharmacist ANSHUL SEBASTIAN 12/21/2019 9:21 AM Signed [facility] Referring provider: No ref. provider found Lovely Devi is a 74 year old year old male patient being evaluated today for anticoagulation Telemanagement visit. Patient is currently on the following anticoagulant Warfarin Labs PT INR (no units) Date Value 11/26/2018 Test sent to [facility]. 10/16/2017 1.8 01/16/2017 Test sent to [facility]. INR (POCT) (no units) Date Value [...] of liver or green tea, Ensure, Boost, [place] Instant Breakfast, Mulit-Vitamins, and V-8. Plan: ? Advised patient to continue with a hig her weekly warfarin dose at this time. ? Next home INR check scheduled on 01/04/2020 ? Patient verbalizes understanding of the plan. JOLEEN CERRATO, PHARMACIST Clinical Pharmacist, Pharmacy Anticoagulation Clinic Pharmacy Anticoagulation Clinic Pager: [phone] Description Patient has 3 mg tablets of warfarin. Patient takes in the m orning. . Allergies As of Date: 12/20/2019 Noted Allergy Reaction MORPHINE 02/28/2005 ROCEPHIN (CEFTRIAXONE SODIUM) 06/20/2014 14 - Other: See Com ments Comments: Hot flashes; redness to skin Date Reviewed: 10/27/2019 Reviewed by: Linwood ([facility]) JAZZY Carpenter - Fully Assessed Reason [...] mouth once ajay * LANCETS Use with [employer] Glucometer * ASPIRIN 81 MG TABLET Take [...] on progress on 2019-11 PROGRESS HNO ID: [id number] Normal 12-15-2019 [place] Author: Denita Thorpe (Pharmacist) Clinic Service: ? Aneudy Author Type: Pharmacist ([id number]) Type: Progress Notes Filed: 12/27/2019 8:49 AM Note Text: TELEPHONIC APPOINTMENT [place] law requires the collaborative practice agreement to [...] manage ment appointment for diabetes. At 09/15 RETURNING OFFICER?appt,?insulin NPH dose decreased pt was consulted to pharmacy due to increased hypoglycemia.?At last RETURNING OFFICER visit gabapentin was initiated and empiric treatment for UTI was s tarted with nitrofurantoin monohydrate.?At PharmD visit on?,?ins ulin lispro dose was decreased and patient was recommended to pursue bas al/bolus insulin pens through [facility] patient assistance. At last PCP appt,?no medication [...] patient confirmed receiving Basaglar and Humalog from [facility], he was instructed t hat [...] Pharmacy:?[facility] ? Rx coverage:?Medicare ? Affordability:?insulins through [facility] ? 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 Esophageal Reflux Benign Neoplasm of Colon Dermatophytosis of Nail Atrial Fibrillation (Hcc) Anticoagulated On Coumadin Class 2 Severe Obesity Due to Excess Calories With Serious C omorbidity and Body Mass Index (Bmi) of 38.0 to 38.9 in Adult ([facility]) Stasis Dermatitis of Both Legs Foot Callus Subsequent Non-St Elevation ([facility]) Myocardial Infarction W ithin 4 Weeks of Initial Infarction ([facility]) Syncope Hyperlipidemia Ldl Goal <100 Ashd (Arteriosclerotic Heart Disease) Neurocardiogenic Syncope 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 , With Long-Term Current Use of Insulin (Hcc) Facet Arthritis of Lumbar Region Adenopathy Atrial Flutter ([facility]) Balanitis Coronary Angioplasty Status Elevated [...] of vessel, na tive or graft s/p [place] in [place] - Diverticulosis of colon (without [...] ventricular tachycardia (HCC) - Snoring - Stroke ([facility]) - Tinea of nail 01/13/2011 - Type 2 diabetes mellitus with stage 3 chronic kidney disea se, with long-term current use of insulin ([facility]) 06/15/2017 - Unspecified essential hypertension [...] G47.33 327.23 - fax compliance download to [phone] 1 Device 0 - flash glucose sensor [...] once daily. 0 - blood sugar diagnostic ([employer] BLOOD GLUCOSE SYSTEM) test strip Use as [...] BCACP Primary Care Clinical Pharmacist [facility] cnov on 2019-12-15 CNOV Office Visit (PHMEWO) Normal 12-15-[address] [place] [address] Clinic LOVELY DEVI ([id number]) 1945 M [place] Date Time Provider Department ([id number]) 12/15/19 10:30 AM KEMI (PHARMACIST)[facility] During your visit today, we recorded the following informati on about you: Anshul Hancock 12/27/2019 8:49 AM Signed TELEPHONIC APPOINTMENT [place] law requires the collaborative practice agreement to [...] pharmacotherapy management appointment for diabetes. At 09/15 RETURNING OFFICER?appt,?insulin NPH dose decreased pt was consulted to pharmacy due to increased hypoglycemia.?At last RETURNING OFFICER visit ga bapentin was initiated and empiric treatment for UTI was started with nit rofurantoin monohydrate.?At PharmD visit on?,?insulin lispro dose was decreased and patient was recommended to pursue basal/ bolus insulin pens through [facility] patient assistance. At last PCP appt,?no medication [...] Pharmacy:?[facility] ? Rx coverage:?Medicare ? Affordability:?insulins through [employer] ? 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 0 - blood sugar diagnostic ([employer] BLOOD GLUCOSE SYSTEM) test strip Use as [...] TOUCH ULTRASO FT LANCETS) lancets Use with [employer]Me Glucometer as directed 100 Each 3 - [...] disease, with long-term current use of insulin ([facility]) - ICD9: 250.40, 585.3, V58.67, [...] BCACP Primary Care Clinical Pharmacist [facility] Referring Provider: DENIZ GARSIA [[id number]] Allergies As of Date: 12/15/2019 Noted Allergy Reaction MORPHINE 02/28/2005 ROCEPHIN (CEFTRIAXONE SODIUM) 06/20/2014 14 - Other: See Com ments Comments: Hot flashes; redness to skin Date Reviewed: 10/27/2019 Reviewed by: Linwood ([facility]) JAZZY Carpenter - Fully Assessed Reason for Visit: Allied Health Visit [5] Cmt: DM Primary Visit Diagnosis:Type 2 diabetes mellitus with st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, with long-term current use of insulin ([facility]) [E11.22, N18.3, Z79.4] Prescriptions as [...] 2019-12-09 Anion gap [Moles/Vol] 6 mmol/L 12-09-19 [facility] (96348) BASO ABS 12-09-2019 [facility] (61909) Basophils/100 WBC 12-09-[address] [facility] (d) (68824) Calcium [Mass/Vol] 8.7 8.8 - 10.5 MG/DL Abnormal 12-09-2019 [facility] MG/DL (99592) Chloride [Moles/Vol] 98 98 - 107 MEQ/L 0 [facility] MEQ/L (84574) Creatinine [Mass/Vol] 1.68 0.6 - 1.3 MG/DL Abnormal 12-09-19 [facility] MG/DL (72802) EOS ABS 12-09-2019 [facility] (18743) Eosinophils/100 WBC 12-09-2019 [facility] (Bld) (06973) Erythrocyte 12-09-2019 [facility] distribution width ( 80457) (RBC) [Ratio] GFR AFR AMER 52 mL/MIN 12-09-2019 [facility] (15692) GFR/1.73 sq 43 mL/MIN 12-09-2019 [facility] M.predicted MDRD (44 195) (S/P/Bld) [Vol rate/Area] Glucose [Mass/Vol] 209 74 - 106 MG/DL Abnormal 12-09-2019 [facility] MG/DL (86968) HCO3 (Bld) [Moles/Vol] 32.0 mmol/L 020 [facility] (27773) Hematocrit (Bld) 38.6 39 - 55 % % Abnormal 12-09-2019 [facility] [Volume fraction] (4 4195) Hemoglobin (Bld) 12.5 14 - 16.5 g/dL Abnormal 12-09-2019 [facility] [Mass/Vol] g/dL (13038) Lymphocytes (d) 12-09-[address] [facility] [#/Vol] (06231) Lymphocytes/100 WBC 12-09-2019 [facility] (d) (81747) MCH (RBC) [Entitic 29.8 25.4 - 34.6 pg 0 [facility] mass] pg (96112) MCHC (RBC) [Mass/Vol] 32.4 30 - 36 g/dL g/dL 12-08 [facility] (70684) MCV (RBC) [Entitic 91.9 79 - 98 fL fL 12-09-2019 [facility] vol] (99989) MONO ABS 12-09-2019 [facility] (14162) Monocytes/100 WBC 12-09-[address] [facility] (d) (40862) NEUT ABS 12-09-2019 [facility] (28497) Neutrophils/100 WBC 12-09-2019 [facility] (d) (14810) Platelet mean volume 10.4 7.4 - 10.4 fL fL 12-08 [facility] ([facility]) [Entitic vol] (58330) Platelets (Bld) 168 140 - 440 K/uL 12-09-2019 [facility] [#/Vol] K/uL (84583) Potassium [Moles/Vol] 4.3 3.5 - 5.1 MEQ/L 12-09-19 20 [facility] MEQ/L (44298) RBC (Bld) [#/Vol] 4.20 4 - 6 M/uL M/uL 12-09-2019 [facility] (35211) Sodium [Moles/Vol] 136 136 - 145 MEQ/L 12-09-2019 [facility] MEQ/L (00869) Urea nitrogen 32 6 - 20 mg/dL mg/dL Abnormal 12-09-2019 [facility] [Mass/Vol] (17920) WBC (Bld) [#/Vol] 5.7 3.9 - 11 K/uL K/uL 12-09-19 20 [facility] (14932) cnpn on 2019-12-08 CNPN Telephone (FAMPWS) Normal 12-08-2019 [place] [facility] LOEVLY DEVI ([id number]) 1945 [facility] Hospital Time Provider Department ([id number]) 12/08/19 MORGAN VALDEZ III During your visit today, we recorded the following informati on about you: Tasha Chan RN 12/08/2019 1:08 PM Signed Argelia- OT- [facility]- reporting POC- reports this was a delay [...] skin Date Reviewed: 10/27/2019 Reviewed by: Linwood ([facility]) JAZZY Carpenter - Fully Assessed Reason for Visit: [facility] OT POC [Other] Prescriptions as of 12/08/2019 [...] on 2019-11 OBSOLETE Refill (FAMPWS) Normal 12-07-2019 [facility] LOVELY DEVI ([id number]) 1945 M [facility] Time Provider Department ([id number]) 12/07/19 MORGAN VALDEZ III During your visit today, we recorded the following informati on about you: Nette Gotez MA, JAZZY 12/07/2019 9:56 AM Signed Last Refill:11/26/19 Qty:270 Refills:0 Next Scheduled Office Visit:none Last Office Visit:10/27/19 Nette Goetz MA Allergies As of Date: 12/07/2019 Noted Allergy Reaction MORPHINE 02/28/2005 ROCEPHIN (CEFTRIAXONE SODIUM) 06/20/2014 14 - Other: See Com ments Comments: Hot flashes; redness to skin Date Reviewed: 10/27/2019 Reviewed by: Linwood ([facility]) JAZZY Carpenter - Fully Assessed Reason [...] 12/07/19 yoandy on 2019-12-07 [facility] Telephone (FAMPWS) Normal 12-07-2019 [place] [facility] LOVELY DEVI ([id number]) 1945 [facility] Time Provider Department ([id number]) 12/07/19 MORGAN VALDEZ III [facility] During your visit today, we recorded the following informati on about you: Cindi Eastman LPN 12/07/2019 10:56 AM Signed CARLITOS: Nicole with [facility] PT calling with plan of ca re [...] skin Date Reviewed: 10/27/2019 Reviewed by: Linwood ([facility]) JAZZY Carpenter - Fully Assessed Reason for Visit: Plan of Care [Other] Cmt: [facility] PT Prescriptions as of 12/07/2019 Sig: NORTRIPTYLINE [...] on 2019-12-06 CNPN Telephone (PHAMTE) Normal 12-06-2019 [place] [facility] LOVELY DEVI ([id number]) 1945 [facility] Time Provider Department ([id number]) 12/06/19 ANDRE (PHARMACIST)LEE During your visit today, we recorded the following informati on about you: Lee Moss, Pharmacist 12/06/2019 3:33 PM Signed [facility] Ambulatory [facility] Anticoagulation [facility] Lovely Devi is a 74 year old year old male patient being evaluated today for anticoagulation Telemanagement visit. Patient is currently on the following anticoagulant Warfarin Labs PT INR (no units) Date Value 11/26/2018 Test sent to [facility]. 10/16/2017 1.8 01/16/2017 Test sent to [facility]. INR (POCT) (no units) Date Value [...] a nd advised to call PAC at [phone] if any questions or changes to report. Would like to try one more time to reach patient. INR 2 weeks ago was low and lef t VM for patient so not sure if he got message. Lee Moss, Pharmacist Clinical Pharmacist, Pharmacy Anticoagulation Clinic Pharmacy Anticoagulation Clinic Pager: [phone] Description Patient has 3 mg tablets of warfarin. Patient takes in the m orning. . Cristina Escobar (Mixing Machine Tender) 12/06/2019 5:16 PM Signed Patient called and left message that stated he r eceived a message re: his INR result and dosing but he cou ldn't understand what dose to take of his warfarin. Patient can be reached at [phone]. Cristina Escobar CPhT (R D Manager) Pharmacy Anticoagulation Clinic Anshul Marquez 12/06/2019 5:27 PM Signed [facility] Pharmacy Anticoagulation Clinic Referring provider: No ref. provider found Lovely Devi is a 74 year old year old male patient being evaluated today for anticoagulation Telemanagement visit. Patient is currently on the following anticoagulant Warfarin Labs PT INR (no units) Date Value 11/26/2018 Test sent to [facility]. 10/16/2017 1.8 01/16/2017 Test sent to [facility]. INR (POCT) (no units) Date Value [...] Pharmacy Anticoagulation Clinic Pharmacy Anticoagulation Clinic Pager: [phone] Description Patient has 3 mg tablets of warfarin. Patient takes in the m orning. . Allergies As of Date: 12/06/2019 Noted Allergy Reaction MORPHINE 02/28/2005 ROCEPHIN (CEFTRIAXONE SODIUM) 06/20/2014 14 - Other: See Com ments Comments: Hot flashes; redness to skin Date Reviewed: 10/27/2019 Reviewed by: Linwood ([facility]) JAZZY Carpenter - Fully Assessed Reason [...] Neurocardiogenic syncope [R55] 03/01/2015 Dysphagia [R13.10] 03/01/2015 Petti's esophagus with esophagitis [K22.70, K*03/01/2015 Bilateral carotid [...] (PHARMACIST)GABRIELA on CNPN Telephone (FAMPWS) Normal 12-06-2019 [place] [facility] LOVELY DEVI ([id number]) 1945 M [place] Date Time Provider Department ([id number]) 12/06/19 MORGAN VALDEZ III During your visit today, we recorded the following informati on about you: Cindi Eastman LPN 12/06/2019 4:51 PM Signed Melissa @ [facility] plan of care and resumption of car [...] skin Date Reviewed: 10/27/2019 Reviewed by: Linwood ([facility]) JAZZY Carpenter - Fully Assessed Reason [...] mouth once ajay * LANCETS Use with OneMir[employer] Glucometer * ASPIRIN 81 MG TABLET Take [...] [Relative 1.6 2.0 - 3.0 Abnormal 09-0 [facility] ([id number]) time] cnpn on 2019-11-30 CNPN Telephone (PHMEWO) Normal 11-30-2019 [place] [facility] LOVELY DEVI ([id number]) 1945 [facility] Time Provider Department ([id number]) 11/30/19 KEMI (PHARMACIST)DENITA During your visit today, we recorded the following informati on about you: Cindi Pichardo RN 11/30/2019 12:55 PM Signed Patient wanted Pharmacist Denita aware that his mail cam e today and he did not receive the Basaglar insulin from [employer] in the mail yesterday or today. He was told to call Denita if did not receive insulin. Please review and advise. DRAGAN Valdez, Pharmacist 12/01/2019 3:54 PM Signed Returned call to patient. Pt 's answers phone to state that insulin package was received today. Denita Thorpe, PharmD, BCACP Primary Care Clinical Pharmacist [place] [facility] Allergies As of Date: 11/30/2019 Noted Allergy Reaction MORPHINE 02/28/2005 ROCEPHIN (CEFTRIAXONE SODIUM) 06/20/2014 14 - Other: See Com ments Comments: Hot flashes; redness to skin Date Reviewed: 10/27/2019 Reviewed by: Linwood ([facility]) JAZZY Carpenter - Fully Assessed Reason [...] on 2019-11-23 CNPN Telephone (PHAMTE) Normal 11-23-2019 [place] [facility] LOVELY DEVI ([id number]) 1945 [facility] Time Provider Department ([id number]) 11/23/19 BLOSSOM (PHARMACIST)BRIJESH During your visit today, we recorded the following informati on about you: ANSHUL SEBASTIAN 11/23/2019 8:56 AM Signed [facility] Ambulatory Pharmacy Anticoagulation Clinic Referring provider: No ref. provider found Lovely Devi is a 74 year old year old male patient being evaluated today for anticoagulation Telemanagement visit. Patient is currently on the following anticoagulant Warfarin Labs PT INR (no units) Date Value 11/26/2018 Test sent to [facility]. 10/16/2017 1.8 01/16/2017 Test sent to [facility]. INR (POCT) (no units) Date Value [...] Pharmacy Anticoagulation Clinic Pharmacy Anticoagulation Clinic Pager: [phone] Description Patient has 3 mg tablets of warfarin. Patient takes in the m orning. . Allergies As of Date: 11/23/2019 Noted Allergy Reaction MORPHINE 02/28/2005 ROCEPHIN (CEFTRIAXONE SODIUM) 06/20/2014 14 - Other: See Com ments Comments: Hot flashes; redness to skin Date Reviewed: 10/27/2019 Reviewed by: Linwood ([facility]) JAZZY Carpenter - Fully Assessed Reason [...] mouth once ajay * LANCETS Use with hyperWALLET Systemsuch Glucometer * ASPIRIN 81 MG TABLET Take [...] (PHARMACIST)JOLEEN on CNPN Telephone (PHMEWO) Normal 11-23-2019 [place] [facility] LOVELY DEVI ([id number]) 1945 M [place] Date Time Provider Department ([id number]) 11/23/19 KEMI (PHARMACIST)DENITA During your visit today, [...] (to replace Humul in) were sent to [facility] on 10/23. Attempted to call [employer] to flakita nathan, unable to reach guest service representative. Was able to leave voicemail [...] Thorpe PharmD, BCACP Primary Care Clinical Pharmacist [facility] Denita Thorpe Pharmacist 11/28/2019 4:55 PM Signed Called and spoke with [employer], they confirm that Basa glar is ready for delivery. Will arrive tomorrow. Called and spoke with pt's , Ila aleman re someone over the age of 18 is home to sign for package. She verbalized understanding. Denita Thorpe PharmD, BCACP Primary Care Clinical Pharmacist [facility] Allergies As of Date: 11/23/2019 Noted Allergy Reaction MORPHINE 02/28/2005 ROCEPHIN (CEFTRIAXONE SODIUM) 06/20/2014 14 - Other: See Com ments Comments: Hot flashes; redness to skin Date Reviewed: 10/27/2019 Reviewed by: Linwood ([facility]) JAZZY Carpenter - Fully Assessed Reason for Visit: Medication Update [8692] Prescriptions as of 11/23/2019 Sig: NORTRIPTYLINE 25 [...] [Relative 1.7 2.0 - 3.0 Abnormal - [facility] ([id number]) time] progress on 2019-10 PROGRESS HNO ID: [id number] Normal 11-21-2019 [place] Author: Denita Thorpe (Pharmacist) Clinic Service: ? [place] Author Type: Pharmacist ([id number]) Type: Progress Notes Filed: 12/05/2019 9:55 PM Note Text: TELEPHONIC APPOINTMENT [place] law requires the collaborative practice agreement to [...] manage ment appointment for diabetes. At 09/15 RETURNING OFFICER?appt,?insulin NPH dose decreased pt was consulted to pharmacy due to increased hypoglycemia.?At last RETURNING OFFICER visit gabapentin was initiated and empiric treatment for UTI was s tarted with nitrofurantoin monohydrate. At PharmD visit on , ins ulin lispro dose was decreased and patient was recommended to pursue bas al/bolus insulin pens through [employer] patient assistance. At last PCP appt, no [...] (Bmi) of 38.0 to 38.9 in Adult ([facility]) Stasis Dermatitis of Both Legs Foot Callus Subsequent Non-St Elevation (Nstemi) Myocardial Infarction W ithin 4 Weeks of Initial Infarction ([facility]) Syncope Hyperlipidemia Ldl Goal <100 [...] of vessel, na tive or graft s/p [place] in [place] - Diverticulosis of colon (without [...] ventricular tachycardia (HCC) - Snoring - Stroke ([facility]) - Tinea of nail 01/13/2011 - Type 2 diabetes mellitus with stage 3 chronic kidney disea se, with long-term current use of insulin ([facility]) 06/15/2017 - Unspecified essential hypertension [...] humidity and lifetime supplies. Dx. JESSICA G47.33 327.45 - fax compliance download to [phone] 1 Device 0 - flash glucose sensor [...] once daily. 0 - blood sugar diagnostic ([employer] BLOOD GLUCOSE SYSTEM) test strip Use as [...] and LFTs appropriate for royal nued use. [place] law requires the collaborative practice agreement to [...] BCACP Primary Care Clinical Pharmacist [place] cnov on 2019-11-21 CNOV Office Visit (PHMEWO) Normal 11-21-[address] [place] [address] Clinic LOVELY DEVI ([id number]) 1945 M [place] Date Time Provider Department ([id number]) 11/21/19 3:30 PM KEMI (PHARMACIST)DENITA During your visit today, we recorded the following informati on about you: Anshul Hancock 12/05/2019 9:55 PM Signed TELEPHONIC APPOINTMENT [place] law requires the collaborative practice agreement to [...] pharmacotherapy management appointment for diabetes. At 09/15 RETURNING OFFICER?appt,?insulin NPH dose decreased pt was consulted to pharmacy due to increased hypoglycemia.?At last RETURNING OFFICER visit ga bapentin was initiated and empiric treatment for UTI was started with nit rofurantoin monohydrate. At PharmD visit on , insulin lispro dose was decreased and patient was recommended to pursue basal/ bolus insulin pens through [employer] patient assistance. At last PCP appt, no [...] on CGM: 158 mg/dL Awaiting approval of [employer] insulin through PAP, Emili log and Basaglar. [...] of vessel, na tive or graft s[place]p [place] in [place] - Diverticulosis of colon (without [...] disease, with long-term current use of insulin ([facility]) 06/15/2017 - Unspecified essential hypertension [...] G47.33 327.23 - fax compliance download to [phone] 1 Device 0 - flash glucose sensor [...] once daily. 0 - blood sugar diagnostic ([employer] BLOOD GLUCOSE SYSTEM) test strip Use as [...] TOUCH ULTRASO FT LANCETS) lancets Use with hyperWALLET Systemsuch Glucometer as directed 100 Each 3 - [...] disease, with long-term current use of insulin ([facility]) - ICD9: 250.40, 585.3, V58.67, [...] of new basal/bolus insu maribell pens from [facility].?Renal function and LFTs appropriate for continued use. [place] law requires the collaborative practice agreement to [...] switching to Basaglar an d Humalog through [employer] patient assistance, will replace current insulins. ? ACEi/ARB for renal protection:?yes, Scr and K+ ok to royal nue ? HbA1c: 01/14/2020 Patient is not scheduled to see PCP. Patient to follow up with PharmD, pt to call me by end of week with update on if approved by PAP. Patient verbalized understanding of instructions. Denita Thorpe, LisaD, BCACP Primary Care Clinical Pharmacist [facility] Referring Provider: DENIZ GARSIA [[id number]] Allergies As of Date: 11/21/2019 Noted Allergy Reaction MORPHINE 02/28/2005 ROCEPHIN (CEFTRIAXONE SODIUM) 06/20/2014 14 - Other: See Com ments Comments: Hot flashes; redness to skin Date Reviewed: 10/27/2019 Reviewed by: Linwood ([facility]) JAZZY Carpenter - Fully Assessed Reason [...] on 0 yoandy on 2019-11-09 CNPN Telephone ([facility]) Normal 11-09-2019 [place] [facility] LOVELY DEVI ([id number]) 1945 [facility] Time Provider Department ([id number]) 11/09/19 BLOSSOM (PHARMACIST)BRIJESH During your visit today, we recorded the following informati on about you: ANSHUL SEBASTIAN 11/09/2019 9:42 AM Signed [facility] Ambulatory Pharmacy Anticoagulation Clinic Referring provider: [...] Pharmacy Anticoagulation Clinic Pharmacy Anticoagulation Clinic Pager: [phone] Description Patient has 3 mg tablets of warfarin. Patient takes in the m orning. . Allergies As of Date: 11/09/2019 Noted Allergy Reaction MORPHINE 02/28/2005 ROCEPHIN (CEFTRIAXONE SODIUM) 06/20/2014 14 - Other: See Com ments Comments: Hot flashes; redness to skin Date Reviewed: 10/27/2019 Reviewed by: Linwood ([facility]) JAZZY Carpenter - Fully Assessed Reason [...] on progress on 2019-10 PROGRESS HNO ID: [id number] Normal 11-04-2019 [facility] Author: Denita Thorpe (Pharmacist) [place] ([id number]) Service: ? Author Type: Pharmacist Type: Progress Notes Filed: 11/15/2019 9:14 AM Note Text: TELEPHONIC APPOINTMENT [place] law requires the collaborative practice agreement to [...] manage ment appointment for diabetes. At 09/15 RETURNING OFFICER appt, insulin NPH dose decreased pt was consulted to pharmacy due to increased hypoglycemia. At last RETURNING OFFICER visit gabapentin was initiated and empiric treatment for UTI was s tarted with nitrofurantoin monohydrate. At last PharmD visit on , insulin lispro dose was decreased and patient was recommended to pur funmilayo basal/bolus insulin pens through [facility] patient assista nce. At last PCP appt, [...] Allegramart. States he has not heard from [employer] patient assistance program yet about supply. States [...] ? Adherence: denies missed doses. ? Pharmacy: [facility] ? Rx coverage: Medicare ? Affordability: Gutierrez of brand name insulins is costly on i nsurance, on Relion brand insulin vials ? Diabetes supplies: [employer] ? 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 Esophageal Reflux Benign Neoplasm of Colon Dermatophytosis of Nail Atrial Fibrillation ([facility]) Anticoagulated On Coumadin Class 2 Severe Obesity Due to Excess Calories With Serious C omorbidity and Body Mass Index (Bmi) of 38.0 to 38.9 in Adult ([facility]) Stasis Dermatitis of Both Legs Foot Callus Subsequent Non-St Elevation (Nstemi) Myocardial Infarction W ithin 4 Weeks of Initial Infarction ([facility]) Syncope Hyperlipidemia Ldl Goal <100 Ashd (Arteriosclerotic Heart Disease) Neurocardiogenic Syncope 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 , With Long-Term Current Use of Insulin (Hcc) Facet Arthritis of Lumbar Region Adenopathy Atrial Flutter ([facility]) Balanitis Coronary Angioplasty Status Elevated [...] of vessel, na tive or graft s/p [place] in 1985 - Diverticulosis of colon (without [...] ventricular tachycardia (HCC) - Snoring - Stroke ([facility]) - Tinea of nail 01/13/2011 - Type 2 diabetes mellitus with stage 3 chronic kidney disea se, with long-term current use of insulin ([facility]) 06/15/2017 - Unspecified essential hypertension [...] G47.33 327.23 - fax compliance download to [phone] 1 Device 0 - flash glucose sensor [...] once daily. 0 - blood sugar diagnostic ([employer] BLOOD GLUCOSE SYSTEM) test strip Use as [...] duration of action. Patient assistance forms for [employer] have been fazed and awaiting approval. Renal function and LFTs appropriate for c ontinued use. [place] law requires the collaborative practice agreement to [...] for switching to Basaglar and Humalog th [facility] [employer] patient assistance ? ACEi/ARB for renal protection: yes, Scr and K+ ok to royal nue ? HbA1c: 01/14/2020 ? Patient is not scheduled to see PCP. Patient to follow up with PharmD on 11/21/2019. Patient verbalized understanding of instructions. Denita Thorpe, LisaD Primary Care Clinical Pharmacist [place] yoandy on 2019-11-04 CNPN Telephone (PHMEWO) Normal 11-04-2019 [place] [facility] LOVELY DEVI ([id number]) 1945 M [place] Date Time Provider Department ([id number]) 11/04/19 KEMI (PHARMACIST)DENITA During your visit today, [...] BCACP Primary Care Clinical Pharmacist [place] [facility] Allergies As of Date: 11/04/2019 Noted Allergy Reaction MORPHINE 02/28/2005 ROCEPHIN (CEFTRIAXONE SODIUM) 06/20/2014 14 - Other: See Com ments Comments: Hot flashes; redness to skin Date Reviewed: 10/27/2019 Reviewed by: Linwood ([facility]) JAZZY Carpenter - Fully Assessed Reason for Visit: Diabetes [34] Cmt: Medication recommendations Visit Diagnosis:Type [address] 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, with long-term current use of insulin ([facility]) [E11.22, N18.3, Z79.4] Order(s):insulin regular [...] mouth once ajay * LANCETS Use with hyperWALLET Systemsuch Glucometer * ASPIRIN 81 MG TABLET Take [...] (PHARMACIST)DENITA on CNPN Telephone (NICOLEPWS) Normal 11-04-2019 [place] [facility] LOVELY DEVI ([id number]) 1945 M [place] Date Time Provider Department ([id number]) 11/04/19 MORGAN VALDEZ III During your visit today, we recorded the following informati on about you: Kaitlin King LPN 11/04/2019 3:29 PM Signed Melissa from [facility] calling for recert orders, 2 visit s weekly for 9 weeks for wound care. Please advise Alex Genao MD 11/07/2019 2:39 PM Signed Ok to dyed raw stock blower feeder verbal ok for re-cert. Dante Chavez Ma 11/07/2019 3:18 PM Signed TC to Melissa - Detailed message left on confidential voicemail . Dante Chavez Ma Allergies As of Date: 11/04/2019 Noted Allergy Reaction MORPHINE 02/28/2005 ROCEPHIN (CEFTRIAXONE SODIUM) 06/20/2014 14 - Other: See Com ments Comments: Hot flashes; redness to skin Date Reviewed: 10/27/2019 Reviewed by: Linwood ([facility]) JAZZY Carpenter - Fully Assessed Reason [...] 2019-11-04 CNOV Office Visit (PHMEWO) Normal 11-04-[address] [place] [address] [facility] LOVELY DEVI ([id number]) 1945 [facility] Date Time Provider Department ([id number]) 11/04/19 10:30 AM KEMI (PHARMACIST)[facility] During your visit today, we recorded the following informati on about you: Anshul Hancock 11/15/2019 9:14 AM Signed TELEPHONIC APPOINTMENT [place] law requires the collaborative practice agreement to [...] pharmacotherapy management appointment for diabetes. At 09/15 RETURNING OFFICER appt, insulin NPH dose decreased pt was consulted to pharmacy due to increased hypoglycemia. At last RETURNING OFFICER visit ga bapentin was initiated and empiric treatment for UTI was started with nit rofurantoin monohydrate. At last PharmD visit on , insulin lispr o dose was decreased and patient was recommended to pursue basal/bolus insulin pens through [facility] patient assistance. At last PCP appt, no medication changes made but patient was encouraged to watch carbohydrates in diet and exercise regularly. INTERIM HISTORY: States DM first diagnosed at least >10 years ago. He used to be on Lantus and Humalog but those were expensive so he has switched to insulin NPH and insulin R, Relion brand vials [facility] States he has not heard from [employer] [facility] patient assistance program yet about supply. States [...] ? Adherence: denies missed doses. ? Pharmacy: [facility] ? Rx coverage: Medicare ? 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 With Stage 3 Chronic Kidney D isease, With Long-Term Current Use of Insulin ([facility]) Facet Arthritis of Lumbar Region Adenopathy Atrial Flutter ([facility]) Balanitis Coronary Angioplasty Status Elevated [...] of vessel, na tive or graft s[place]p [place] 1985 - Diverticulosis of colon (without [...] ventricular tachycardia (HCC) - Snoring - Stroke ([facility]) - Tinea of nail 01/13/2011 - Type 2 diabetes mellitus with st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, with long-term current use of insulin ([facility]) 06/15/2017 - Unspecified essential hypertension [...] G47.33 327.23 - fax compliance download to [phone] 1 Device 0 - flash glucose sensor [...] once daily. 0 - blood sugar diagnostic ([employer] BLOOD GLUCOSE SYSTEM) test strip Use as [...] TOUCH ULTRASO FT LANCETS) lancets Use with hyperWALLET Systemsuch Glucometer as directed 100 Each 3 - [...] disease, with long-term current use of insulin ([facility]) - ICD9: 250.40, 585.3, V58.67, [...] of actio n. Patient assistance forms for [employer] have been fazed and aw aiting approval. Renal function and LFTs appropriate for continued use. [place] law requires the collaborative practice agreement to [...] switching to Basaglar an d Humalog through [employer] patient assistance ? ACEi/ARB for renal protection: yes, Scr and K+ ok to royal nue ? HbA1c: 01/14/2020 ? Patient is not scheduled to see PCP. Patient to follow up with PharmD on 11/21/2019. Patient verbalized understanding of instructions. Denita Thorpe, PharmD Primary Care Clinical Pharmacist [place] [facility] Referring Provider: DENIZ GARSIA [[id number]] Allergies As of Date: 11/04/2019 Noted Allergy Reaction MORPHINE 02/28/2005 ROCEPHIN (CEFTRIAXONE SODIUM) 06/20/2014 14 - Other: See Com ments Comments: Hot flashes; redness to skin Date Reviewed: 10/27/2019 Reviewed by: Linwood ([facility]) JAZZY Carpenter - Fully Assessed Reason for Visit: Allied Health Visit [5] Cmt: DM Primary Visit Diagnosis:Type 2 diabetes mellitus with st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, with long-term current use of insulin ([facility]) [E11.22, N18.3, Z79.4] Prescriptions as [...] mouth once ajay * LANCETS Use with hyperWALLET Systemsuch Glucometer * ASPIRIN 81 MG TABLET Take [...] on progress on 2019-09 PROGRESS HNO ID: [id number] Normal 10-27-2019 [facility] Author: Morgan Valdez III [place] ([id number]) Service: ? Author Type: Physician Type: Progress [...] c ontinue present medications 4. seen at [facility] in August with chest pain and [...] G47.33 327.23 - fax compliance download to [phone] - flash glucose sensor (FREESTYLE ANITRA 14 [...] mouth once daily. - blood sugar diagnostic (TheCommentor BLOOD GLUCOSE SYSTEM) test strip Use as [...] of vessel, na tive or graft s/[place] - Diverticulosis of colon (without [...] care at wound center follow up with steam presser follow up with FEDERICO Benítez MD on 2019-10-27 CNOV Office Visit (FAMPWS) Normal 10-27-19 [place] [facility] LOVELY DEVI ([id number]) 1945 M [place] Date Time Provider Department ([id number]) 10/27/19 8:40 AM MORGAN VALDEZ III During [...] and continue present medications 4. seen at [facility] in August with chest pain and treated for cellulitis in ICU. Still having some chest pain, constant aching not clearly worse wi th walking but seems to resolve completely with NTG. To see trust officer to day. 5. JESSICA--tries to use CPAP [...] G47.33 327.23 - fax compliance download to [phone] - flash glucose sensor (FREESTYLE ANITRA 14 [...] TOUCH ULTRASO FT LANCETS) lancets Use with KeyMe Glucometer as directed - Aspirin 81 mg [...] of vessel, na tive or graft [place] - Diverticulosis of colon (without [...] care at wound center follow up with steam presser follow up with FEDERICO Benítez MD, III MD 10/27/2019 9:16 AM Signed PLAN: healthy weight losing diet and regular exercise eat less sugar, bread, potato, pasta, rice, corn, corn syrup, saturated fats recheck HbA1c 3 mos increase gabapentin 900 mg three times/day for nerve pain continue wound care at wound center follow up with steam presser follow up with Seven Valdez III MD Referring Provider: MORGAN VALDEZ III [[id number]] Allergies As of Date: 10/27/2019 Noted Allergy Reaction MORPHINE 02/28/2005 ROCEPHIN (CEFTRIAXONE SODIUM) 06/20/2014 14 - Other: See Com ments Comments: Hot flashes; redness to skin Date Reviewed: 10/27/2019 Reviewed by: Linwood (Narrow Fabric Calenderer) JAZZY Carpenter - Fully Assessed Reason for Visit: 6 Month Exam [189] Primary Visit Diagnosis:Type 2 diabetes mellitus with diabetic neuropathy, with long-term current use of insulin ([facility]) [E11.40, Z79.4] Other Visit Diagnoses:Type 2 diabetes mellitus with st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, with long-term current use of insulin ([facility]) [E11.22, N18.3, Z79.4] Ischemic cardiomyopathy [I25.5] ASHD (arteriosclerotic heart disease) [I25.10] Hyperlipidemia LDL goal <100 [E78.5] Stasis dermatitis of both legs [I87.2] Essential hypertension [I10] JESSICA (obstructive sleep apnea) [G47.33] Order(s):HGB A1C [CRPNT5G] Order #: [id number] FUTURE gabapentin (NEURONTIN) 300 mg capsuleTake 3 [...] care at wound center follow up with steam presser follow up with Seven Valdez III MD [...] on 10/27/19 cnpn on 2019-10-26 CNPN Telephone ([facility]) Normal 10-26-2019 [facility] [facility] LOVELY DEVI ([id number]) 1945 M [facility] Time Provider Department ([id number]) 10/26/19 BLOSSOM (PHARMACIST)BRIJESH During your visit today, we recorded the following informati on about you: ANSHUL SEBASTIAN 10/26/2019 4:37 PM Signed Patient was due to test INR today will continue to monitor f or results. Joleen Cerrato, PharmD Pharmacy Anticoagulation Clinic ANSHUL COLIN 10/27/2019 9:42 AM Signed [facility] Ambulatory Pharmacy Anticoagulation Clinic Lovely Devi is a 74 year old year old male patient being evaluated today for anticoagulation Telemanagement visit. Patient is currently on the following anticoagulant: Warfarin Labs PT INR (no units) Date Value 11/26/2018 Test sent to [facility]. 10/16/2017 1.8 01/16/2017 Test sent to [facility]. INR (POCT) (no units) Date Value [...] information and advised to call PAC at [phone] if any questions or changes to report. PRIYANKA BAUER PHARMACIST Clinical Pharmacist, Pharmacy Anticoagulation Clinic Pharmacy Anticoagulation Clinic Pager: [phone] Allergies As of Date: 10/26/2019 Noted Allergy Reaction MORPHINE 02/28/2005 ROCEPHIN (CEFTRIAXONE SODIUM) 06/20/2014 14 - Other: See Com ments Comments: Hot flashes; redness to skin Date Reviewed: 10/06/2019 Reviewed by: Kath (Dnp.Work Adjustment Instructor) SHANELLE Nielsen.ELBA - Fully Assesse d Reason [...] TABLET,DEL* Take 40 mg by mouth once jaay * LANCETS Use with Onetouch Glucometer * [...] on 2019-10-24 CNPN Telephone (PHMEWO) Normal 10-24-2019 [place] [facility] LOVELY DEVI ([id number]) 1945 M [place] Date Time Provider Department ([id number]) 10/24/19 KEMI (PHARMACIST)DENITA During your visit today, we recorded the following informati on about you: Anshul Hancock 10/24/2019 9:38 AM Signed Received patient's completed patient section of the [employer] res PAP application. Completed prescriber section and wi provider to PCP for review and signature of orders. Medications pursuing through [employer] PAP: ? Basaglar (to replace insulin NPH) ? Humalog (to replace insulin R) Once PCP sign orders, ok to fax to [employer] ( ). Please place in pharmacy mailbox for record keeping and follow up. Thanks! Denita Thorpe PharmD Primary Care Clinical Pharmacist [facility] Linwood Carpenter CMA, MA 10/24/2019 10:19 AM Signed Forms placed on PCP's desk. AUDI Rowan III MD 10/24/2019 1:10 PM Signed form has been signed FEDERICO Alatorre MD, CMA, [place] 10/24/2019 1:47 PM Signed Form faxed and placed in pharmacist mail slot. Linwood Carpenter CMA Allergies As of Date: 10/24/2019 Noted Allergy Reaction MORPHINE 02/28/2005 ROCEPHIN (CEFTRIAXONE SODIUM) 06/20/2014 14 - Other: See Com ments Comments: Hot flashes; redness to skin Date Reviewed: 10/06/2019 Reviewed by: Kath (Dnp.Work Adjustment Instructor) SHANELLE Nielsen.RETURNING OFFICER - Fully Assesse d Reason for Visit: Patient Assistance [[id number]] Cmt: Humalog and Basaglar Prescriptions as of [...] on 2019-10-17 CNPN Telephone (FAMPWS) Normal 10-17-2019 [place] [facility] LOVELY DEVI ([id number]) 1945 [facility] Date Time Provider Department ([id number]) 10/17/19 MORGAN VALDEZ III FAMPWS During your visit today, we recorded the following informati on about you: Cindi Eastman LPN 10/17/2019 3:27 PM Signed Melany with [facility] called and needed c larification on Insulin [...] 25 Hydroxy 24.5 31.0-80.0 ng/mL Low 0 [facility] ([id number]) Comment: Result Comment: Classificati on of 25 [place] Vitamin D status: Insufficiency/Moderate Defic iency: < or = 30 ng/mL Sufficiency/Optimal Levels: 31 to 80 ng/mL Toxicity: > 100 ng/mL Test performed by chemilumin escent immunoassay. Performed By: #### HBA1C, CM P, LIPB, VITD ####[facility] [address] [place], [place] [phone] lipid panel, basic on 2019-10-14 Cholesterol [Mass/Vol] 123 <200 mg/dL Normal 020 [facility] ([id number]) Comment: Result Comment: <200 mg/dL, Desirable 200-239 mg/dL, Borderline hi gh >239 mg/dL, High Performed By: #### HBA1C, CM P, LIPB, VITD ####[facility] [address] [place], [place] [phone] Cholesterol in HDL [Mass/Vol] 35 >39 mg/dL Low 10-14-2019 [facility] ([id number]) Comment: Result Comment: 40-59 mg/dL, Acceptable >59 mg/dL, High: Negative ri sk factor for coronary heart disease <40 mg/dL, Low: Positive ris k factor for coronary heart disease Performed By: #### HBA1C, CM P, LIPB, VITD ####[facility] [address] [place], [place] [phone] Cholesterol in LDL 53 <100 mg/dL Normal 10-14-2019 [facility] [Mass/Vol] [place] ([address]) Comment: Result Comment: <100 mg/dL, Optimal 100-129 mg/dL, Near optimal/ above optimal 130-159 mg/dL, Borderline hi gh 160-189 mg/dL, High >189 mg/dL, Very high Secondary prevention optimal LDL Cholesterol levels are recommended to be < 70 mg/dL Performed By: #### HBA1C, CM P, LIPB, VITD ####[facility] [place], [place] [phone] Fasting Time 12 hrs Normal 10-14-2019 [facility] (01055) Comment: Performed By: #### HBA1C, CM P, LIPB, VITD ####[place] [address] [place], [place] [phone] LDL:HDL Ratio 1.51 <2.54 Normal 10-14-2019 [facility] (71150) Comment: Result Comment: Reference: 1. National Cholesterol Educ ation Program ATP III Guideline At-A-Glance Quick Desk Reference: National Heart, Lung, and Blood [place]. National Institutes of Health. 2001: NIH Publication No. 01-3305. 2. An International Atherosc lerosis Society position paper: global recommendations for the management of dyslipidemia: executive summary, Atherosclerosis. 2014: 232(2):410-413. Performed By: #### HBA1C, CM P, LIPB, VITD ####[facility] [address] [place], [place] [phone] Non HDL Cholesterol 88 <130 mg/dL Normal 10-14-2019 [facility] (69910) Comment: Result Comment: <130 mg/dL, Optimal 130-159 mg/dL, Near optimal/ above optimal 160-189 mg/dL, Borderline hi gh 190-219 mg/dL, High >219 mg/dL, Very high Secondary prevention optimal non HDL Cholesterol levels are recommended to be < 100 mg/dL Performed By: #### HBA1C, CM P, LIPB, VITD ####[facility] [address] [facility], [place] [phone] TC:HDL Ratio 3.51 <5.10 Normal 10-14-2019 [facility] (79734) Comment: Performed By: #### HBA1C, CM P, LIPB, VITD ####[place] [address] [place], [place] [phone] Triglyceride [Mass/Vol] 177 <150 mg/dL High 2019 [facility] (63155) Comment: Result Comment: <150 mg/dL, Normal 150-199 mg/dL, Borderline hi gh 200-499 mg/dL, High >499 mg/dL, Very high Performed By: #### HBA1C, CM P, LIPB, VITD ####[place] [address] [place], [place] [phone] VLDL Cholesterol 35 <30 mg/dL High 10-14-2019 [facility] [place] [facility] (48299) Comment: Performed By: #### HBA1C, CM P, LIPB, VITD ####[place] [address] [place], [place] [phone] hemoglobin a1c on 2 HbA1c (Bld) [Mass fraction] 171 mg/dL Normal [facility] (23075) Comment: Result Comment: eAG: (Estima devin average glucose) is a calculated value from HgbA1c and is guest service representative of the average blood glucose level in the last 2-3 month period. Performed By: #### HBA1C, CM P, LIPB, VITD ####[place] [address] [place], [place] [phone] HbA1c (Bld) [Mass fraction] 7.6 4.3-5.6 % High [facility] (16051) Comment: Result Comment: [place] Dominique betes Association guidelines indicate that patients with HgbA1c in the range 5.7-6.4% are at increased risk for development of diabetes, and intervention by lifestyle modification may be beneficial. HgbA1c greater o r equal to 6.5% is considered diagnostic of diabetes. Performed By: #### HBA1C, CM P, LIPB, VITD ####[facility] [address] [place] [phone] comp metabolic panel on 2019-10-14 Albumin [Mass/Vol] 4.1 3.9-4.9 g/dL Normal 10-14-2019 [facility] (90725) Comment: Performed By: #### HBA1C, CM P, LIPB, VITD ####[facility] [address] [place] [phone] ALP [Catalytic activity/Vol] 55 38-113 U/L Normal 0 10-14-2019 [facility] (84988) Comment: Performed By: #### HBA1C, CM P, LIPB, VITD ####[place] [address] [place] [phone] ALT [Catalytic activity/Vol] 26 10-54 U/L Normal 0 10-14-2019 [facility] (94457) Comment: Performed By: #### HBA1C, CM P, LIPB, VITD ####[place] [address] [place], [place] [phone] Anion gap [Moles/Vol] 10 9-18 mmol/L Normal 10-14-19 [facility] (72271) Comment: Performed By: #### HBA1C, CM P, LIPB, VITD ####[facility] [address] [place] [phone] AST [Catalytic activity/Vol] 23 14-40 U/L Normal 0 10-14-2019 [facility] (91211) Comment: Performed By: #### HBA1C, CM P, LIPB, VITD ####[facility] [address] [place], [place] [phone] Bilirubin [Mass/Vol] 0.4 0.2-1.3 mg/dL Normal 0 [facility] (74397) Comment: Performed By: #### HBA1C, CM P, LIPB, VITD ####[facility] [address] [place], [place] [phone] Calcium [Mass/Vol] 9.0 8.5-10.2 mg/dL Normal 10-14-2019 [facility] (90669) Comment: Performed By: #### HBA1C, CM P, LIPB, VITD ####[facility] [address] [place], [place] [phone] Chloride [Moles/Vol] 101 97-105 mmol/L Normal 0 [facility] (81968) Comment: Performed By: #### HBA1C, CM P, LIPB, VITD ####[place] [address] [place], [place] [phone] CO2 [Moles/Vol] 24 22-30 mmol/L Normal 10-14-2019 [facility] (73309) Comment: Performed By: #### HBA1C, CM P, LIPB, VITD ####[facility] [place], [place] [phone] Creatinine [Mass/Vol] 1.30 0.73-1.22 mg/dL High 10-14-19 20 [facility] (27277) Comment: Performed By: #### HBA1C, CM P, LIPB, VITD ####[facility] [address] [place], [place] [phone] eGFR- Amer. >60 Normal 10-14-2019 [facility] (94095) Comment: Performed By: #### HBA1C, CM P, LIPB, VITD ####[facility] [place], [place] [phone] GFR/1.73 sq M predicted among 54 . Normal 10-14-2019 [facility] non-blacks MDRD (S/P/Bld) [Vol (58682) rate/Area] Comment: Result Comment: eGFR (Estima devin [...] By: #### HBA1C, CM P, LIPB, VITD ####[facility] [address], [place] [phone] Glucose [Mass/Vol] 197 74-99 mg/dL High 10-14-2019 [facility] (43029) Comment: Result Comment: The [place] Diabetes Association (ADA) provides guidance for cutoff [...] for diagnosis of diabetes. Reference: Standards of [facility] Care in Diabetes 2016, [place] Diabetes Association. Diabetes Care. 2016.39(Suppl 1). Performed By: #### HBA1C, CM P, LIPB, VITD ####[facility] [address] [place], [place] [phone] Potassium [Moles/Vol] 4.6 3.7-5.1 mmol/L Normal 10-14-19 [facility] (36891) Comment: Performed By: #### HBA1C, CM P, LIPB, VITD ####[facility] [address] [place], [place] [phone] Protein [Mass/Vol] 6.0 6.3-8.0 g/dL Low 10-14-2019 [facility] (44068) Comment: Performed By: #### HBA1C, CM P, LIPB, VITD ####[facility] [address] [place], [place] [phone] Sodium [Moles/Vol] 135 136-144 mmol/L Low 10-14-2019 [facility] (10315) Comment: Performed By: #### HBA1C, CM P, LIPB, VITD ####[facility] [address] [place], [place] [phone] Urea nitrogen [Mass/Vol] 27 9-24 mg/dL High 10-13 [facility] (69429) Comment: Performed By: #### HBA1C, CM P, LIPB, VITD ####[facility] [place], [place] [phone] albumin/creat ratio on 2019-10-14 Albumin Urine Random <12.0 Normal 0 [facility] (23007) Comment: Performed By: #### UACR #### [facility], [place] [phone] Albumin/Creat Ratio Not calculated <30 Normal 10-13 [facility] (80383) Comment: Performed By: #### UACR #### [facility] [address] [place], [place] [phone] Creatinine,Urine,Ran 63.4 20-300 mg/dL Normal 0 [facility] (17999) Comment: Performed By: #### UACR #### [facility] [address], [place] [phone] progress on 2019-09 PROGRESS HNO ID: [id number] Normal 10-12-2019 [facility] Author: Denita Thorpe (Pharmacist) [place] ([id number]) Service: ? Author Type: Pharmacist Type: Progress Notes Filed: 10/13/2019 5:40 PM Note Text: [place] law requires the collaborative practice agreement to [...] is presenting today for initial pharmacotherapy [facility] appointment for diabetes. At 09/15 RETURNING OFFICER appt, insulin NPH dose decreased pt was consulted to pharmacy due to increased hypoglycemia. At last RETURNING OFFICER visit gabapentin was initiated and empiric treatment [...] really watch what he eats. He has [employer] CGM. Does not have [employer] accounts , states he is not too [...] ? Adherence: denies missed doses. ? Pharmacy: [facility] ? Rx coverage: Medicare ? Affordability: Gutierrez of brand name insulins is costly on i nsurance, on Relion brand insulin vials ? Diabetes supplies: [employer] Anitra ACTIVE PROBLEM LIST Cardiomegaly Essential Hypertension [...] of vessel, na tive or graft [place] - Diverticulosis of colon (without [...] G47.33 327.23 - fax compliance download to [phone] - flash glucose sensor (FREESTYLE ANITRA 14 [...] mouth once daily. - blood sugar diagnostic (TheCommentor BLOOD GLUCOSE SYSTEM) test strip Use as [...] ase, with long-term current use of insulin ([facility]) - ICD9: 250.40, 585.3 , [...] of a ction. Patient assistance forms for [employer] given to pt to pursue basal insulin. Renal function and LFTs appropriate for continued use. [place] law requires the collaborative practice agreement to [...] 11/03, to u pload CGM data on [employer] prior to appt with help from daughter. Patient verbalized understanding of instructions. Denita Thorpe, Abner Primary Care Clinical Pharmacist [facility] elban on 2019-10-12 CNPN Telephone (rollAppRAV) Normal 10-12-2019 [place] [facility] LOVELY DEVI ([id number]) 1945 M [place] Date Time Provider Department ([id number]) 10/12/19 BLOSSOM (PHARMACIST)SHARIF During your visit today, we recorded the following informati on about you: ANSHUL SEBASTIAN 10/12/2019 9:23 AM Signed [facility] Ambulatory Pharmacy Anticoagulation [facility] Referring provider: No ref. provider found Lovelyguadalupe Devi is a 73 year old year old male patient being evaluated today for anticoagulation Telemanagement visit. Patient is currently on the following anticoagulant Warfarin Labs PT INR (no units) Date Value 11/26/2018 Test sent to [facility]. 10/16/2017 1.8 01/16/2017 Test sent to [facility]. INR (POCT) (no units) Date Value [...] Pharmacy Anticoagulation Clinic Pharmacy Anticoagulation Clinic Pager: [phone] Description Patient has 3 mg tablets of warfarin. Patient takes in the m orning. . Allergies As of Date: 10/12/2019 Noted Allergy Reaction MORPHINE 02/28/2005 ROCEPHIN (CEFTRIAXONE SODIUM) 06/20/2014 14 - Other: See Com ments Comments: Hot flashes; redness to skin Date Reviewed: 10/06/2019 Reviewed by: Kath (Faiza.Work Adjustment Instructor) Blaz, MATRIX WORKER.RETURNING OFFICER - Fully Assesse d Reason for Visit: [...] mouth once ajay * LANCETS Use with hyperWALLET Systemsuch Glucometer * ASPIRIN 81 MG TABLET Take [...] 2019-10-12 CNOV Office Visit (PHMEWO) Normal 10-12-19 [place] [facility] LOVELY DEVI ([id number]) 1945 M [place] Date Time Provider Department ([id number]) 10/12/19 3:00 PM KEMI (PHARMACIST)DENITA During your visit today, we recorded the following informati on about you: Anshul Hancock 10/13/2019 5:40 PM Signed [place] law requires the collaborative practice agreement to [...] pharmacotherapy management appointment for diabetes. At 09/15 [facility] appt, insulin NPH dose decreased pt was consulted to pharmacy due to increased hypoglycemia. At last [facility] visit ga bapentin was initiated and empiric treatment for UTI was started with nit rofurantoin monohydrate. INTERIM HISTORY: States DM first diagnosed at least >10 years ago. He used to be on Lantus and Humalog but those were expensive so he has switched to insulin NPH and insulin R, Relion brand vials from [employer]. Reports in the past having l ower BG in the 50s, states it does not happen often but when it does he usually needs to treat it twice to improve the blood sugar. Reports does not really watch what he eats. He has [employer] Anitra CGM. Does not hav e [employer] accounts, states he is not too tech [...] ? Adherence: denies missed doses. ? Pharmacy: [facility] ? Rx coverage: Medicare ? 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 With Stage 3 Chronic Kidney D isease, With Long-Term Current Use of Insulin ([facility]) Facet Arthritis of Lumbar Region [...] (arteriosclerotic heart disease) 02/19/2015 - Atrial fibrillation ([facility]) 07/03/2011 - Automatic implantable cardiac defibrillator in situ - Petit's esophagus with esophagitis 03/01/2015 - Benign neoplasm of colon - Chronic diarrhea 09/16/2011 - Coronary atherosclerosis of unspecified type of vessel, na tive or graft s[place]p [place] - Diverticulosis of colon (without [...] ventricular tachycardia (HCC) - Snoring - Stroke ([facility]) - Tinea of nail 01/13/2011 - Type 2 diabetes mellitus with st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, with long-term current use of insulin ([facility]) 06/15/2017 - Unspecified essential hypertension [...] G47.33 327.23 - fax compliance download to [phone] - flash glucose sensor (FREESTYLE ANITRA 14 [...] mouth once daily. - blood sugar diagnostic (TheCommentor BLOOD GLUCOSE SYSTEM) test strip Use as [...] TOUCH ULTRASO FT LANCETS) lancets Use with KeyMe Glucometer as directed - Aspirin 81 mg [...] disease, with long-term current use of insulin ([facility]) - ICD9: 250.40, 585.3, V58.67, [...] on and LFTs appropriate for continued use. [place] law requires the collaborative practice agreement to be initiated by a physician in order to provide medication titration. [facility], pharmacy will only provide medication recommend [...] on 11/03, to upload CGM data on [employer] prior to appt with help from daughter. Patient verbalized understanding of instructions. Denita Thorpe PharmD Primary Care Clinical Pharmacist [facility] Anshul Hancock 10/12/2019 3:56 PM Addendum [...] replace insulin R) Referring Provider: DENIZ GARSIA [[id number]] Allergies As of Date: 10/12/2019 Noted Allergy Reaction MORPHINE 02/28/2005 ROCEPHIN (CEFTRIAXONE SODIUM) 06/20/2014 14 - Other: See Com ments Comments: Hot flashes; redness to skin Date Reviewed: 10/06/2019 Reviewed by: Kath (Dnp.Work Adjustment Instructor) SHANELLE Nielsen.ELBA - Fully Assesse d Reason [...] mouth once ajay * LANCETS Use with OneMirubeeuch Glucometer * ASPIRIN 81 MG TABLET Take [...] on progress on 2019-09 PROGRESS HNO ID: [id number] Normal 10-06-2019 [facility] Author: Kath (Faiza.Elba) SEFERINO Nielsen Amado ([id number]) Service: ? Author Type: Nurse Practitioner Type: Progress Notes Filed: 10/06/2019 3:42 PM Note Text: Chief Complaint Patient presents with: Hematuria: urine taken but home health 2 weeks ago Burning with urination HPI Lovely Devi is a 73 year old male who presents he re today for a several day history of urinary symptoms. This is an establis [facility] patient of Dr. Morgan Valdez III MD. This is a new patient to me. Patient was recently admitted a nd discharged from [facility] for cellulitis to right leg. He [...] but states it was discontinued by his [facility] medicine doctor. Past medical history, [...] of vessel, na tive or graft s/p [place] - Diverticulosis of colon (without [...] se, with long-term current use of insulin ([facility]) 06/15/2017 - Unspecified essential hypertension Previous Surgical History PAST SURGICAL HISTORY Procedure Laterality Date - [facility] Dr. Anthony-repeat 3 years-11/2020 - COLONOSCOPY W/BX 02/21/09 - EGD W/O OR W/BRUSH/WASH EGD - EGD W/O OR W/BRUSH/WASH 02/16/08 EGD inpt [facility] H-pylori negative - EGD W/O OR W/BRUSH/WASH 05/24/15 EGD - EGD W/O OR W/BRUSH/WASH 12/21/2017 Dr. Anthony-repeat 3 years-11/2020 - HEART CATHETERIZATION 12/15/2014 [facility] - see scanned documents - HEART [...] G47.33 327.23 - fax compliance download to [phone] - flash glucose sensor (FREESTYLE ANITRA 14 [...] mouth once daily. - blood sugar diagnostic (TheCommentor BLOOD GLUCOSE SYSTEM) test strip Use as [...] Lacey Nguyen APN Student Kath Nielsen DNP, RETURNING OFFICER This note was completed with [employer] dictation software. Note was reviewed for accuracy. There may be minor misspellings or gr ammar miscues with [employer] Dictation. Lacey Nguyen APN student from [facility] completed initial history and physical exam. I reviewed the note, examined the patient and concur with plan of care. [place] [id number] cnov on 2019-10-06 CNOV Office Visit (FAMPWS) Normal 10-06-[address] [place] [address] [facility] LOVELY DEVI ([id number]) 1945 [facility] Date Time Provider Department ([id number]) 10/06/19 1:40 PM KATH NIELSEN (FAIZA.ELBA) FAMPWS During your visit today, we recorded the following informati on about you: Temperature Pulse Respiration Blood pressure 98.4 degrees 65/minute 14/minute 128/70 Weight 118.8 kg Kath Nielsen DNP.ELBA, MATRIX WORKER.ELBA 10/06/2019 3:42 PM Signed Chief Complaint Patient [...] Patient was recently admitted and discharged from [facility] for cellulitis to right leg . [...] of vessel, na tive or graft s/p [place] - Diverticulosis of colon (without [...] EGD W/O OR W/BRUSH/WASH 02/16/08 EGD inpt [facility] H-pylori negative - EGD W/O OR W/BRUSH/WASH 05/24/15 EGD - EGD W/O OR W/BRUSH/WASH 12/21/2017 Dr. Anthony-repeat 3 years-11/2020 - HEART CATHETERIZATION 12/15/2014 [facility] - see scanned documents - HEART [...] G47.33 327.23 - fax compliance download to [phone] - flash glucose sensor (BookMyForex.comSTYLE ANITRA 14 DAY SENSOR) kit 1 Each [...] mouth once daily. - blood sugar diagnostic (TheCommentor BLOOD GLUCOSE SYSTEM) test strip Use as [...] TOUCH ULTRASO FT LANCETS) lancets Use with hyperWALLET Systemsuch Glucometer as directed - Aspirin 81 mg [...] Lacey Nguyen APN Student Kath Nielsen, DNP, RETURNING OFFICER This note was completed with [employer] software. Note was reviewed for accuracy. There may be minor misspellings or gramm ar miscues with [employer] Dictation. Lacey Nguyen APN student from [facility] completed initial history and physical exam. I reviewed the note, examined the patient and concur with plan of care. [place] [id number] Lacey Nguyen APN Student 10/06/2019 2:32 PM [...] For severe symptoms seek care at the [facility] ER. Plan of care, [...] skin Date Reviewed: 10/06/2019 Reviewed by: Kath (Faiza.Work Adjustment Instructor) SHANELLE Nielsen.RETURNING OFFICER - Fully Assesse d Reason for Visit: Hematuria [335] Cmt: urine taken but home health 2 weeks ago Primary Visit Diagnosis:Dysuria [R30.0] Other Visit Diagnoses:Microscopic hematuria [R31.29] Type 2 diabetes mellitus with diabetic neuropathy, with long-term current use of insulin (HCC) [E11.40, Z79.4] Order(s):UA DIP, URINE (POC) [[id number]] Order #: [id number] ec. #:[id number] nitrofurantoin monohydrate and macrocrystal (MACROBID) 100 m [...] Recorded Encounter Status:Closed by KATH NIELSEN DNP RETURNING OFFICER on 10/06/19 cnpn on 2019-09-28 [facility] Normal 09-28-2019 [facility] LOVELY DEVI ([id number]) 1945 M [place] Date Time Provider Department ([id number]) 09/28/19 BLOSSOM (PHARMACIST)BRIJESH During your visit today, we recorded the following informati on about you: ANSHUL SEBASTIAN 09/28/2019 10:53 AM Signed [facility] Referring provider: No ref. provider found Lovelyguadalupe Ornelasalmitajenny is a 73 year old year old male patient being evaluated today for anticoagulation Telemanagement visit. Patient is currently on the following anticoagulant Warfarin Labs PT INR (no units) Date Value 11/26/2018 Test sent to [facility]. 10/16/2017 1.8 01/16/2017 Test sent to [facility]. INR (POCT) (no units) Date Value [...] Pharmacy Anticoagulation Clinic Pharmacy Anticoagulation Clinic Pager: [phone] Description Patient has 3 mg tablets of [...] on 2019-09-26 CNPN Telephone (FAMPWS) Normal 09-26-2019 [facility] [facility] LOVELY DEVI ([id number]) 1945 M [place] Date Time Provider Department ([id number]) 09/26/19 MORGAN VALDEZ III During your visit today, we recorded the following informati on about you: Cindi Eastman LPN 09/26/2019 11:56 AM Signed Melany with [facility] just left patient from a wound ch juan on his leg. He was complaining of blood in his underwear and painful urinatio n. Gathered urine samples. Looked good clear to pale. Call with verbal order t o PH: [phone]. She gathered enough urine to do the [...] LPN 09/27/2019 8:14 AM Signed Melany with [facility] is aski ng with verbage await urine results if this means provider is ok with uryinalysis. Call Melany with provider message. Jerilyn Valdez III MD 09/27/2019 8:36 AM Signed Yes?please obtain urinalysis FEDERICO Alatorre MD, CMA, PR 09/27/2019 10:04 AM Signed Melany has been notified. Linwood Carpenter CMA Allergies As of Date: 09/26/2019 Noted Allergy Reaction MORPHINE 02/28/2005 ROCEPHIN (CEFTRIAXONE SODIUM) 06/20/2014 14 - Other: See Com ments Comments: Hot flashes; redness to skin Date Reviewed: 09/16/2019 Reviewed by: Deniz Garsia - Fully Assessed Reason for Visit: [facility] [Other] Prescriptions as of 09/26/2019 Sig: LATANOPROST [...] 09/27/19 progress on 2019-08 PROGRESS HNO ID: [id number] Normal 09-16-2019 [facility] Author: Deniz Garsia [place] ([id number]) Service: ? Author Type: Nurse Practitioner Type: Progress Notes Filed: 09/16/2019 2:19 PM Note Text: Chief Complaint Patient presents with: Hospital Follow Up HPI Lovely Devi is a 73 year old male who presents he re today for Hospital Discharge Follow up. ADM [facility] 09/04-09/08/2019 for CHF. Follows with Dr. [...] placed on Trazodone 50 mg at hs. [place] leg sx wer e related to CHF [...] after breakfast. He rep orts 7 day xGP=139, 14 day tSH=746, and 90 day rIE=443. He relates he d oes not feel [...] of vessel, na tive or graft s[place]p [place] - Diverticulosis of colon (without [...] EGD W/O OR W/BRUSH/WASH 02/16/08 EGD inpt [facility] H-pylori negative - EGD W/O OR W/BRUSH/WASH 05/24/15 EGD - EGD W/O OR W/BRUSH/WASH 12/21/2017 Dr. Anthony-repeat 3 years-11/2020 - HEART CATHETERIZATION 12/15/2014 [facility] - see scanned documents - HEART [...] G47.33 327.23 - fax compliance download to [phone] - flash glucose sensor (FREESTYLE ANITRA 14 [...] mouth once daily. - blood sugar diagnostic (TheCommentor BLOOD GLUCOSE SYSTEM) test strip Use as [...] slow healing of venous ulceration. Following with [facility]. 5. Stasis dermatitis with venous ulcer of [...] complication, with long-term current use of insulin ([facility]) - ICD9: 250.00, V58.6 7, [...] TRAZODONE 50 MG TABLET Deniz Garsia, MSN MATRIX WORKER.RETURNING OFFICER cnov on 2019-09-16 CNOV Office Visit (FAMPWS) Normal 09-16-19 [facility] LOVELY DEVI ([id number]) 1945 [facility] Date Time Provider Department ([id number]) 09/16/19 9:40 AM DENIZ GARSIA During your visit today, we recorded the following informati on about you: Temperature Pulse Respiration Blood pressure 97.9 degrees 68/minute 20/minute 122/70 Deniz Garsia, MSN MATRIX WORKER.RETURNING OFFICER 09/16/2019 2:19 PM Signed Chief Complaint Patient presents with: Hospital Follow Up HPI Lovely Devi is a 73 year old male who presents he re today for Hospital Discharge Follow up. ADM [facility] 09/04- 020 for CHF. Follows with [...] placed on Trazodone 50 mg at hs. [place] le g sx were related to CHF [...] 82 after breakfast. He reports 7 day xBA=888, 14 day zZZ=150, and 90 day nCA=381. He relates he does not feel the [...] of vessel, na tive or graft s[place]p [place] - Diverticulosis of colon (without [...] disease, with long-term current use of insulin ([facility]) 06/15/2017 - Unspecified essential hypertension Previous Surgical History PAST SURGICAL HISTORY Procedure Laterality Date - COLONOSCOP W/ OR W/O [facility] SPEC 12/21/2017 Dr. Anthony-repeat 3 years-11/2020 - COLONOSCOPY W/BX 02/21/09 - EGD W/O OR W/BRUSH/WASH EGD - EGD W/O OR W/BRUSH/WASH 02/16/08 EGD inpt [facility] H-pylori negative - EGD W/O OR W/BRUSH/WASH 05/24/15 EGD - EGD W/O OR W/BRUSH/WASH 12/21/2017 Dr. Anthony-repeat 3 years-11/2020 - HEART CATHETERIZATION 12/15/2014 [facility] - see scanned documents - HEART [...] G47.33 327.23 - fax compliance download to [phone] - flash glucose sensor (FREESTYLE ANITRA 14 [...] mouth once daily. - blood sugar diagnostic (TheCommentor BLOOD GLUCOSE SYSTEM) test strip Use as [...] TOUCH ULTRASO FT LANCETS) lancets Use with hyperWALLET Systemsuch Glucometer as directed - Aspirin 81 mg [...] and diastolic CHF (con gestive heart failure) ([facility]) - ICD9: 428.43, 428.0, ICD10: I50.43 (primary diagnosis) -Stable, - Follow up with Cardiology as scheduled. 2. Type 2 diabetes mellitus with st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, with long-term current use of insulin ([facility]) - ICD9: 250.40, 585.3, V58.67, [...] slow healing of venous ulceration. Following with [facility]. 5. Stasis dermatitis with venous ulcer of lower extremity du e to chronic peripheral venous hypertension ([facility]) - ICD9: 459.31, I CD10: [...] n, with long-term current use of insulin ([facility]) - ICD9: 250.00, V58.67, ICD10: [...] TRAZODONE 50 MG TABLET Deniz Garsia, MSN MATRIX WORKER.RETURNING OFFICER Referring Provider: SELF [200] Allergies As of Date: 09/16/2019 Noted Allergy Reaction MORPHINE 02/28/2005 ROCEPHIN (CEFTRIAXONE SODIUM) 06/20/2014 14 - Other: See Com ments Comments: Hot flashes; redness to skin Date Reviewed: 09/16/2019 Reviewed by: Deniz Garsia - Fully Assessed Reason for Visit: Hospital Follow Up [177] Primary Visit Diagnosis: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) ([facility]) [I50.43] Other Visit Diagnoses:Type 2 diabetes mellitus with st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, with long-term current use of insulin ([facility]) [E11.22, N18.3, Z79.4] Essential hypertension [I10] Cellulitis of right lower extremity [L03.115] Stasis 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 ([facility]) [I87.339, L97.909] Closed nondisplaced fracture of fifth metatarsal bone of left foot with routine healing, subsequent encounter [S92.849D] Controlled type 2 diabetes mellitus without complication, with long-term current use of insulin ([facility]) [E11.9, Z79.4] Vitamin D 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] Sleep difficulties [G47.9] Order(s):insulin lispro (HUMALOG U-100 INSULIN) 100 unit/mL akjvherzw84 units with breakfast, 20 units at lunch, [...] TO AMBULATORY CLINIC PHARMACY [[id number]] Order #: [id number]: 1 VITAMIN D 25 HYDROXY [SQVITD] Order #: [id number] FUTURE Cholecalciferol, Vitamin D3, 50 mcg (2,000 [...] E-Cancel Cosign accepted by MORGAN VALDEZ III, MD[[id number]] on 06/25/19 17 6:04 PM Melatonin 5 [...] on 2019-09-14 CNPN Telephone (FAMPWS) Normal 09-14-2019 [facility] [facility] LOVELY DEVI ([id number]) 1945 M [place] Date Time Provider Department ([id number]) 09/14/19 MORGAN VALDEZ III [facility] During your visit today, we recorded the following informati on about you: Kaitlin King LPN 09/14/2019 4:10 PM Signed Manda from [facility] Home health calling did visit one time caroli christy delgado for OT patient doing well educated suing bo, famil y will follow through and get one for his use. Deniz Garsia, MSN MATRIX WORKER.RETURNING OFFICER 09/15/2019 7:26 AM Signed Noted. Deniz Garsia, MSN MATRIX WORKER.RETURNING OFFICER Allergies As of Date: 09/14/2019 Noted Allergy Reaction MORPHINE 02/28/2005 ROCEPHIN (CEFTRIAXONE SODIUM) 06/20/2014 14 - Other: See Com ments Comments: Hot flashes; redness to skin Date Reviewed: 04/28/2019 Reviewed by: Linwood ([facility]) JAZZY Carpenter - Fully Assessed Reason [...] mouth once ajay * LANCETS Use with hyperWALLET Systemsuch Glucometer * ASPIRIN 81 MG TABLET Take [...] 09/15/19 progress on 2019-08 PROGRESS HNO ID: [id number] Normal 09-12-2019 [facility] Author: Jeffy Fontenot [facility] ([id number] Service: ? Author Type: Registered Nurse Type: Progress Notes Filed: 09/12/2019 3:17 PM Note Text: HIGH RISK CHRONIC DISEASE MONITORING Provider Action/FYI: Spk with Pt who noted was Admitted to [facility] 09/04-09/08/19 for Dx : CHF Pt has a scheduled f/u with Cardiology Dr. Perry 10/07/19. Pt has Appt 09/16/19 with Maryellen Garsia CNP Pt has active My Chart and is interested in Critical Care Clinical Nurse Specialist Contact made with patient: Yes Patient identified by name and . Discussed care with patient Hi my name is Corie Bardales, DRAGAN and I am calling from [facility] on behalf of your PCP, Morgan [...] like to speak with a social work senior engineering team leader to help give you support for any of these needs? No It can be normal to feel anxious or down during a time like this. Would you like to talk to a mental health professional about how y ou have been feeling? No ACTION TAKEN: No action taken BRONZE PLATER: Patient MyChart status is: Active account Thank [...] dipti l be sent to you via Travel Appeal once a week for the next few weeks to months . IAMINTOITt is the best way for us to [...] questionnaire will come to you through your Travel Appeal acco unt and will replace the need for us to call you each week. May I sign yo u up for this? Yes Great! I've set you up to receive the weekly questionnaire. In the meantime, if you have concerns in between our calls, please call your PCP's office right away. Thank you. ACTION TAKEN: Signed patient up for weekly Critical Care Clinical Nurse Specialist questionnaire - Entered next patient outreach date [...] CNPTOUTREACH Patient Outreach (FAMPWS) Normal 0 09-12-2019 [place] [facility] LOVELY DEVI ([id number]) 1945 [facility] Date Time Provider Department ([id number]) 09/12/19 JEFFY FONTENOT (RN) FAMPWS During your visit today, we recorded the following informati on about you: Corie Bardales RN 09/12/2019 3:17 PM Signed HIGH RISK CHRONIC DISEASE MONITORING Provider Action/FYI: Spk with Pt who noted was Admitted to [facility] 09/04-09/08/19 for Dx : CHF Pt has a scheduled f/u with Cardiology Dr. Perry 10/07/19. Pt has Appt 09/16/19 with Maryellen Garsia CNP Pt has active My Chart and is interested in Critical Care Clinical Nurse Specialist Contact made with patient: Yes Patient identified by name and . Discussed care with patient Hi my name is Corie Bardales RN and I am calling from the [facility] on behalf of your PCP, Morgan [...] like to speak with a social work senior engineering team leader to help give you support for any of these needs? No It can be normal to feel anxious or down during a time lik e this. Would you like to talk to a mental health professional abo ut how you have been feeling? No ACTION TAKEN: No action taken BRONZE PLATER: Patient Rodneyhart status is: Active account Thank you for taking the time to talk with me to day. We want to work with you to ensure that we are keeping your medical conditions well-controlled and to keep you healthy and out of the doctor's office or [facility]. Our team would like to stay connected with you to make sure you are feeling well. I am inviting you to complete a short questionnaire th at will be sent to you via Travel Appeal once a week for the next few weeks t o months. Travel Appeal is the best way for us to [...] questionnaire will come to you through your Travel Appeal account and will re place the need for us to call you each week. May I sign you up for this? Yes Great! I've set you up to receive the weekly questionn shemar. In the meantime, if you have concerns in between our call s, please call your PCP's office right away. Thank you. ACTION TAKEN: Signed patient up for weekly Critical Care Clinical Nurse Specialist questionnaire - Entered next patient outreach date [...] skin Date Reviewed: 04/28/2019 Reviewed by: Linwood ([facility]) JAZZY Carpenter - Fully Assessed Reason [...] Encounter Status:Closed by CORIE BARDALES on 09/12/19 [facility] (FAMPWS) Normal 09-09-2019 [place] [facility] LOVELY DEVI ([id number]) 1945 [facility] Date Time Provider Department ([id number]) 09/09/19 [facility] During your visit today, we recorded the following informati on about you: Tasha Chan RN 09/09/2019 1:04 PM [facility] oneal P[facility]: nursing will see patient 2 x's week for 9 weeks, for wound care, medication education, and dis ease process teaching. Reports his discharge instructions from hospital, have 2 meds on list, patient reports he hasn't taken in a long time: colestid 1 g bid, and tricor [address] Perry is his trust officer. Morgan Valdez III MD 09/09/2019 5:58 PM Signed Noted Morgan Valdez III, , FAAFP Allergies As of Date: 09/09/2019 Noted Allergy Reaction MORPHINE 02/28/2005 ROCEPHIN (CEFTRIAXONE SODIUM) 06/20/2014 14 - Other: See Com ments Comments: Hot flashes; redness to skin Date Reviewed: 04/28/2019 Reviewed by: Linwood ([facility]) JAZZY Carpenter - Fully Assessed Reason for Visit: [facility] POC [Other] Prescriptions as of 09/09/2019 [...] mouth once ajay * LANCETS Use with hyperWALLET Systemsuch Glucometer * ASPIRIN 81 MG TABLET Take [...] III, MD on 09/09/19 yoandy on 2019-09-08 [facility] (FAMWS) Normal 09-08-2019 [place] [facility] LOVELY DEVI ([id number]) 1945 M [place] Date Time Provider Department ([id number]) 09/08/19 MORGAN VALDEZ III During your visit today, we recorded the following informati on about you: Cindi Eastman LPN 09/08/2019 2:43 PM Signed Melany with [facility] calling to let you know cammie rodriguez being d/c from [facility] today and needs to be followed with nursing, OT and PT. Asking i f you will follow and sign. Please advise Melany. Cindi Valdez III MD 09/08/2019 2:45 PM Signed yes--I will follow FEDERICO Alatorre MD, LPN 09/08/2019 4:42 PM Signed Melany advised of Dr Valdez's verbal orders. 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. Dipti marks monitor for an update on the patient and updated INR. Joleen Cerrato, PharmD ANSHUL SEBASTIAN 09/14/2019 9:32 AM Signed [facility]tico[facility] Referring provider: No ref. provider found Lovely Devi is a 73 year old year old male patient being evaluated today for anticoagulation Telemanagement visit. Patient is currently on the following anticoagulant Warfarin Labs PT INR (no units) Date Value 11/26/2018 Test sent to [facility]. 10/16/2017 1.8 01/16/2017 Test sent to [facility]. INR (POCT) (no units) Date Value [...] therapeutic ? Pt was recently discharged from [facility]. According to Epic note - he [...] Pharmacy Anticoagulation Clinic Pharmacy Anticoagulation Clinic Pager: [phone] Description Patient has 3 mg tablets of warfarin. Patient takes in the m orning. . Chencho Helms (Mixing Machine Tender) 09/14/2019 11:06 AM Signed Patient returned call and is requesting pharmaci st to contact patient after 2 pm today as he is currently not home. Patient can be reached at [phone]. Chencho Helms, R D Manager (film librarian) Pharmacy Anticoagulation Clinic JOLEEN CERRATO, PHARMACIST 09/14/2019 [...] skin Date Reviewed: 04/28/2019 Reviewed by: Linwood ([facility]) JAZZY Carpenter - Fully Assessed Reason [...] on progress on 2019-08 PROGRESS HNO ID: [id number] Normal 09-05-2019 [facility] Author: Staci Almazan MD [place] ([id number]) Service: ? Author Type: Physician Type: Progress Notes Filed: 09/05/2019 3:49 PM Note Text: Virtualist Community Monitoring Note: Adult seen for Monitoring Track: High Risk Chronic Disease Management Contacted by phone, [employer], [employer], [employer], [employer], [employer] ity, [employer], other: phone I [...] in EMR. PMH (I reviewed epic, from [facility]) includes NSTEMI, ASHD, isch emic cardiomyopathy, [...] The said she would take him to [facility]. I called the [facility] ED [phone] and spoke to charge nurse Cristina and [...] Agudelo wilfredo DATE: September 05, 2019 PAGER/CONTACT: [phone] PROGRESS HNO ID: [id number] Normal 09-05-2019 [facility] Author: Jeffy Fontenot (Dragan) [place] ([id number]) Service: ? Author Type: Registered Nurse Type: [...] with patient Hi my name is Corie aBrdales RN and I am calling from [facility] on behalf of your PCP, Morgan [...] - routed to RX CLINICAL TRIAGE pool #[id number] and noted symptoms in the FYI box - Informed patient that you re commend further assessment from a provider to review symptoms. End O [facility] / Phone Call Outreach Ended Corie Bardales RN September 05, 2019 1:54 PM PROGRESS HNO ID: [id number] Normal 09-05-2019 [facility] Author: Faye Lara (Pharmacist) [place] ([id number]) Service: ? Author Type: Pharmacist Type: Progress Notes Filed: 09/05/2019 2:23 PM Note Text: Called patient to clarify. He reports significant SOB, barel y can make it to the bathroom. This is new for him. Will page elijahist stella fraser and route high priority to address today. Faye Lara, PharmD, BCACP Primary Care Pharmacist [facility] Patient Outreach (FAMPWS) Normal 0 09-05-2019 [place] [facility] LOVELY DEVI ([id number]) 1945 [facility] Date Time Provider Department ([id number]) 09/05/19 JEFFY FONTENOT (RN) FAMPWS During your [...] RN and I am calling from the [facility] on behalf of your PCP, Morgan [...] - routed to RX CLINICAL TRIAGE pool #[id number] and noted symptoms in the FYI box [...] skin Date Reviewed: 04/28/2019 Reviewed by: Linwood ([facility]) JAZZY Carpenter - Fully Assessed Reason [...] mouth once ajay * LANCETS Use with hyperWALLET Systemsuch Glucometer * ASPIRIN 81 MG TABLET Take [...] on 2019-08 OBSOLETE Refill (PHAMTE) Normal 08-31-2019 [facility] LOVELY DEVI ([id number]) 1945 [place] Date Time Provider Department ([id number]) 08/31/19 MORGAN VALDEZ III During your visit [...] skin Date Reviewed: 04/28/2019 Reviewed by: Linwood ([facility]) JAZZY Carpenter - Fully Assessed Reason [...] Normal 08-27-2019 [facility] LOVELY DEVI ([id number]) 1945 M [place] Date Time Provider Department ([id number]) 08/27/19 DENIZ GARSIA During your visit today, [...] skin Date Reviewed: 04/28/2019 Reviewed by: Linwood ([facility]) JAZZY Carpenter - Fully Assessed Reason [...] mouth once ajay * LANCETS Use with hyperWALLET Systemsuch Glucometer * ASPIRIN 81 MG TABLET Take [...] on 2019-08-26 CNPN Telephone (NRSLME) Normal 08-26-2019 [place] [facility] MERCEDESLOVELY Quincy ([id number]) 1945 [facility] Date Time Provider Department ([id number]) 08/26/19 ARIANA BERNAL ([facility]) NRSE During your visit today, we recorded [...] skin Date Reviewed: 04/28/2019 Reviewed by: Linwood ([facility]) JAZZY Carpenter - Fully Assessed Reason [...] on 2019-08-24 ELBAN Telephone (VAHE) Normal 08-24-2019 [place] [facility] LOVELY DEVI ([id number]) 1945 M [place] Date Time Provider Department () 08/24/19 ANDRE (PHARMACIST)LEE During your visit today, we recorded the following informati on about you: Allergies As of Date: 08/24/2019 Noted Allergy Reaction MORPHINE 02/28/2005 ROCEPHIN (CEFTRIAXONE SODIUM) 06/20/2014 14 - Other: See Com ments Comments: Hot flashes; redness to skin Date Reviewed: 04/28/2019 Reviewed by: Linwood ([facility]) JAZZY Carpenter - Fully Assessed Reason [...] on progress on 2019-07 PROGRESS HNO ID: [id number] Normal 08-23-2019 [facility] Author: Linwood Fowler) JAZZY Carpenter [place] ([id number]) Service: ? Author Type: Oracle Obiee Developer Type: Progress Notes Filed: 08/23/2019 4:03 PM Note Text: Patient notified, voiced understanding. Linwood Carpenter CMA PROGRESS HNO ID: [id number] Normal 08-23-2019 [facility] Author: Morgan Valdez III [place] ([id number]) Service: ? Author Type: Physician Type: Progress Notes Filed: 08/23/2019 3:19 PM Note Text: Staff, Please notify patient that the Covid 19 test obtained on 07/28 12/17 resulted in no detection of the virus. It was negative. He should report persistent or worsening symptoms of Covid 1 9. Morgan Valdez III, MD, FAAFP Morgan Valdez III, MD, FAA PROGRESS HNO ID: [id number] Normal 08-23-2019 [facility] Author: Linwood Fowler) JAZZY Carpenter [place] ([id number]) Service: ? Author Type: Oracle Obiee Developer Type: Progress Notes Filed: 08/23/2019 3:14 PM Note Text: Printed, placed on PCP's desk. Linwood Carpenter CMA PROGRESS HNO ID: [id number] Normal 08-23-2019 [facility] Author: Morgan Valdez III [place] ([id number]) Service: ? Author Type: Physician Type: Progress Notes Filed: 08/23/2019 12:34 PM Note Text: Staff, Please check [facility] to obtain Covid 19 results Morgan Valdez III MD PROGRESS HNO ID: [id number] Normal 08-23-2019 [facility] Author: Cara Zhang LPN [place] ([id number]) Service: ? Author Type: ? Type: Progress [...] BRICE and I am calling from the [facility] on behalf of your PCP, Morgan [...] - routed to RX CLINICAL TRIAGE pool #[id number] and noted symptoms in the FYI box - Informed patient that you re commend further assessment from a provider to review symptoms. End O atif / Phone Call cnptoutreach on CNPTOUTREACH Patient Outreach (AMBCMG) Normal 0 08-23-2019 [place] [facility] LOVELY DEVI ([id number]) 1945 [facility] Date Time Provider Department ([id number]) 08/23/19 MORGAN VALDEZ III During your visit [...] LPN and I am calling from the [facility] on behalf of your PCP, FEDERICO [...] - routed to RX CLINICAL TRIAGE pool #[id number] and noted symptoms in the FYI box - Informed patient that you recommend further assessment from a provider to review symptoms. End Outreach / Phone Call Morgan Valdez III MD 08/23/2019 12:34 PM Signed Staff, Please check [facility] to obtain Covid 19 results FEDERICO [...] TABLET,DEL* Take 40 mg by mouth once aajy * LANCETS Use with Onetouch Glucometer * [...] 08/23/19 progress on 2019-07 PROGRESS HNO ID: [id number] Normal 08-12-2019 [facility] Author: John Suazo RN [place] ([id number]) Service: ? Author Type: ? Type: Progress Notes Filed: 08/12/2019 11:57 AM Note Text: HIGH RISK CHRONIC DISEASE MONITORING Provider Action/FYI: Contact made with patient: Yes Patient identified by name and . Discussed care with patient Hi my name is John Suazo RN and I am calling from the [facility] on behalf of your PCP, Morgan [...] like to speak with a social work senior engineering team leader to help give you support [...] and [facility]. Our team would like to stay [...] CNPTOUTREACH Patient Outreach (FAMPWS) Normal 0 08-12-2019 [place] [facility] LOVELY DEVI ([id number]) 1945 M [place] Date Time Provider Department ([id number]) 08/12/19 JOHN SUAZO (RN) FAMPWS During your visit today, we recorded the following informati on about you: John Suazo RN 08/12/2019 11:57 AM Signed HIGH RISK CHRONIC DISEASE MONITORING Provider Action/FYI: Contact made with patient: Yes Patient identified by name and . Discussed care with patient Hi my name is John Suazo RN and I am calling from the [facility] on behalf of your PCP, FEDERICO [...] like to speak with a social work senior engineering team leader to help give you support for any of these needs? No It can be normal to feel anxious or down during a time lik e this. Would you like to talk to a mental health professional abo ia how you have been feeling? No ACTION TAKEN: No action taken Thank you for taking the time to talk with me to day. We want to work with you to ensure that we are keeping your medical conditions well-controlled and to keep you healthy and out of the doctor's office or [facility]. Our team would like to stay [...] skin Date Reviewed: 04/28/2019 Reviewed by: Linwood ([facility]) JAZZY Carpenter - Fully Assessed Reason [...] on 2019-08-11 CNPN Telephone (NEMOWS) Normal 08-11-2019 [place] [facility] LOVELY DEVI ([id number]) 1945 M [place] Date Time Provider Department ([id number]) 08/11/19 ARIANA BERNAL (ELBA) NEMOWS During your [...] skin Date Reviewed: 04/28/2019 Reviewed by: Linwood ([facility]) JAZZY Carpenter - Fully Assessed Reason [...] DONNA JOSE LPN on 08/11/19 CNPN Telephone (ATRI - Addiction Treatment Reviews & Information) Normal 08-11-2019 [facility] LOVELY DEVI ([id number]) 1945 M [place] Date Time Provider Department ([id number]) 08/11/19 ANUP (PHARMACIST)FAHEEM During your visit today, we recorded the following informati on about you: Anshul Almeida 08/11/2019 4:20 PM Addendum Error Julian Espinosa, PharmD Allergies As of Date: 08/11/2019 Noted Allergy Reaction MORPHINE 02/28/2005 ROCEPHIN (CEFTRIAXONE SODIUM) 06/20/2014 14 - Other: See Com ments Comments: Hot flashes; redness to skin Date Reviewed: 04/28/2019 Reviewed by: Linwood ([facility]) JAZZY Carpenter - Fully Assessed Reason [...] on 2019-08-10 CNPN Telephone (INTMMN) Normal 08-10-2019 [place] [facility] LOVELY DEVI ([id number]) 1945 M [place] Date Time Provider Department ([id number]) 08/10/19 ANGIE (PHARMACIST)ALEXIA During your visit today, [...] mouth once ajay * LANCETS Use with hyperWALLET Systemsuch Glucometer * ASPIRIN 81 MG TABLET Take [...] on progress on 2019-07 PROGRESS HNO ID: [id number] Normal 08-05-2019 [facility] Author: John Suazo RN [place] ([id number]) Service: ? Author Type: ? Type: Progress Notes Filed: 08/05/2019 3:25 PM Note Text: HIGH RISK CHRONIC DISEASE MONITORING Provider Action/FYI: Contact made with patient: Yes Patient identified by name and . Discussed care with patient Hi my name is John Suazo RN and I am calling from the [facility] on behalf of your PCP, Morgan [...] like to speak with a social work senior engineering team leader to help give you support [...] and out [facility] the [facility]. Our team would like to stay [...] section. cnptoutreach on CNPTOUTREACH Patient Outreach ([facility]) Normal 0 08-05-2019 [place] [facility] LOVELY DEVI ([id number]) 1945 M [place] Date Time Provider Department ([id number]) 08/05/19 JOHN SUAZO (RN) RENEEWS During your visit today, we recorded the following informati on about you: John Suazo RN 08/05/2019 3:25 PM Signed HIGH RISK CHRONIC DISEASE MONITORING Provider Action/FYI: Contact made with patient: Yes Patient identified by name and . Discussed care with patient Hi my name is John Suazo RN and I am calling from the [facility] on behalf of your PCP, FEDERICO [...] like to speak with a social work senior engineering team leader to help give you support [...] and [facility] the [facility]. Our team would like to stay [...] skin Date Reviewed: 04/28/2019 Reviewed by: Linwood ([facility]) JAZZY Carpenter - Fully Assessed Reason [...] on 08/05/19 cnpn on 2019-08-02 CNPN Telephone ([facility]) Normal 08-02-2019 [place] [facility] LOVELY DEVI ([id number]) 1945 M [facility] Time Provider Department ([id number]) 08/02/19 MORGAN VALDEZ III During your visit [...] Dr. Merritt wants h im only on gguk-jyx-hwqugei pain medication, then t he patient should [...] 08/02/19 progress on 2019-07 PROGRESS HNO ID: [id number] Normal 07-29-2019 [facility] Author: Vera (Network Navigator) [place] ([id number]) Service: ? Author Type: Oracle Obiee Developer Type: Progress Notes Filed: 07/29/2019 3:10 PM Note Text: HIGH RISK CHRONIC DISEASE MONITORING Provider Action/FYI: Dr. Valdez- pt needs refill of Lasix 40 mg. Please send to [facility] in [place]. Contact made with patient: Yes Patient identified by name and . Discussed care with patient Hi my name is Vera Mota, NETWORK NAVIGATOR and I am callin g from the [facility] on behalf of your PCP, FEDERICO [...] like to speak with a social work senior engineering team leader to help give you support [...] CNPTOUTREACH Patient Outreach (FAMPWS) Normal 0 07-29-2019 [place] [facility] LOVELY DEVI ([id number]) 1945 M [place] Date Time Provider Department ([id number]) 07/29/19 VERA MOTA (NETWORK NAVIGATOR)FAMPWS During your visit today, we recorded the following informati on about you: RIKY High NAVIGATOR 07/29/2019 3:10 PM Signed HIGH RISK CHRONIC DISEASE MONITORING Provider Action/FYI: Dr. Valdez- pt needs refill of Lasix 40 mg. Please send to [facility] in [place]. Contact made with patient: Yes Patient identified by name and . Discussed care with patient Hi my name is Vera DuncanRIKY mathew NAVIGATOR and I am callin g from the [facility] on behalf of your PCP, Morgan [...] like to speak with a social work senior engineering team leader to help give you support [...] skin Date Reviewed: 04/28/2019 Reviewed by: Linwood ([facility]) JAZZY Carpenter - Fully Assessed Reason [...] on 07/29/19 elban on 2019-07-27 ELBAN Telephone ([facility]) Normal 07-27-2019 [facility] LOVELY DEVI ([id number]) 1945 M [place] Date Time Provider Department () 07/27/19 BLOSSOM (PHARMACIST)BRIJESH During your visit today, we recorded the following informati on about you: JOLEEN CERRATO PHARMACIST 07/27/2019 11:08 AM Signed [facility] message sent [facility]. Joleen Cerrato PharmD Allergies As of Date: 07/27/2019 Noted Allergy Reaction MORPHINE 02/28/2005 ROCEPHIN (CEFTRIAXONE SODIUM) 06/20/2014 14 - Other: See Com ments Comments: Hot flashes; redness to skin Date Reviewed: 04/28/2019 Reviewed by: Linwood ([facility]) JAZZY Carpenter - Fully Assessed Reason [...] on progress on 2019-06 PROGRESS HNO ID: [id number] Normal 07-21-2019 [facility] Author: Becky Garibay [facility] ([id number]) Service: ? Author Type: ? Type: Progress Notes Filed: 07/21/2019 3:21 PM Note Text: HIGH RISK CHRONIC DISEASE MONITORING Provider Action/FYI: Patient states no concerns Contact made with patient: Yes Patient identified by name and . Discussed care with patient Hi my name is Becky Garibay [facility] and I am calling from [facility] on behalf of your PCP, Morgan [...] like to speak with a social work senior engineering team leader to help give you support [...] [facility] Our team would like to [...] CNPTOUTREACH Patient Outreach (FAMPWS) Normal 0 07-21-2019 [place] [facility] LOVELY DEVI ([id number]) 1945 [facility] Date Time Provider Department ([id number]) 07/21/19 MORGAN VALDEZ III During your visit today, we recorded the following informati on about you: Becky Garibay Pss 07/21/2019 3:21 PM Signed HIGH RISK CHRONIC DISEASE MONITORING Provider Action/FYI: Patient states no concerns Contact made with patient: Yes Patient identified by name and . Discussed care with patient Hi my name is Becky Garibay Pss and I am calling from the [facility] on behalf of your PCP, Morgan [...] like to speak with a social work senior engineering team leader to help give you support [...] and out of the doctor's office or [facility]. Our team would like to stay [...] skin Date Reviewed: 04/28/2019 Reviewed by: Linwood ([facility]) JAZZY Carpenter - Fully Assessed Reason [...] mouth once ajay * LANCETS Use with OneMirubeeuch Glucometer * ASPIRIN 81 MG TABLET Take [...] on 2019-06 OBSOLETE Refill (FAMPWS) Normal 07-18-2019 [facility] LOVELY DEVI ([id number]) 1945 [facility] Time Provider Department ([id number]) 07/18/19 MORGAN VALDEZ III FAMPWS During your [...] Please advise. Thank you. Cindi Garsia, MSN MATRIX WORKER.RETURNING OFFICER 07/19/2019 8:10 AM Signed The following approved medic ation requests have been transmitted electronically. Signed Prescriptions Disp Refills Insulin Syringe-Needle U-100 (BD ULTRAFINE INSULIN) 1 mL 31 gauge x 5/16 450 Each 3 Si Each five times daily. ZBIGNIEW: No Authorizing Provider: DENIZ GARSIA, MSN MATRIX WORKER.RETURNING OFFICER Allergies As of Date: 07/18/2019 Noted Allergy Reaction MORPHINE 02/28/2005 ROCEPHIN (CEFTRIAXONE SODIUM) 06/20/2014 14 - Other: See Com ments Comments: Hot flashes; redness to skin Date Reviewed: 04/28/2019 Reviewed by: Linwood ([facility]) JAZZY Carpenter - Fully Assessed Reason [...] on file. Encounter Status:Closed by DENIZ GARSIA RETURNING OFFICER on 07/19/19 OBSOLETE Refill (FAMPWS) Normal 07-18-2019 [facility] LOVELY DEVI ([id number]) 1945 [facility] Date Time Provider Department ([id number]) 07/18/19 DENIZ GARSIAPWS During your visit today, [...] skin Date Reviewed: 04/28/2019 Reviewed by: Linwood ([facility]) JAZZY Carpenter - Fully Assessed Reason [...] mouth once ajay * LANCETS Use with hyperWALLET Systemsuch Glucometer * ASPIRIN 81 MG TABLET Take [...] on 07/19/19 cnpn on 2019-07-13 CNPN Telephone ([facility]) Normal 07-13-2019 [place] [facility] LOVELY DEVI ([id number]) 1945 M [place] Date Time Provider Department ([id number]) 07/13/19 BLOSSOM (PHARMACIST)BRIJESH During your visit today, [...] skin Date Reviewed: 04/28/2019 Reviewed by: Linwood ([facility]) JAZZY Carpenter - Fully Assessed Reason [...] mouth once ajay * LANCETS Use with hyperWALLET Systemsuch Glucometer * ASPIRIN 81 MG TABLET Take [...] on progress on 2019-06 PROGRESS HNO ID: [id number] Normal 06-30-2019 [facility] Author: Deniz Amado ([id number]) Service: ? Author Type: Nurse Practitioner Type: Progress Notes Filed: 07/01/2019 11:35 AM Note Text: Noted. Deniz Garsia, MSN MATRIX WORKER.RETURNING OFFICER progress on 2019-06 PROGRESS HNO ID: [id number] Normal 06-29-2019 [place] Author: Jeffy Fontenot (Rn) Clinic Service: ? [place] Author Type: Registered Nurse ([id number]) Type: Progress Notes Filed: 07/01/2019 11:35 AM [...] concern s Pt reports will f/u with [facility] Cardiology is 6 mths ( Please s ee #6 below: his recent ICD evaluation showed 1 nonsustained VT episode) [facility] 05/30/19 Cardiology Appt with Francis Kwok NP [facility] 06/08/19 ICD Pacemaker Interrogation completed 05/30/19 OV Francis Kwok NP / [facility] Addendum Excerpt noted: Assessment AND Plan 1. 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 Corie Bardales RN June 29, 2019 12:10 PM Corie Bardales RN June 29, 2019 6:57 PM PROGRESS HNO ID: [id number] Normal 06-29-2019 [place] Author: Jeffy Fontenot (Rn) Clinic Service: ? [place] Author Type: Registered Nurse ([id number]) Type: Progress Notes Filed: 07/01/2019 11:35 AM [...] SAMREEN Patient Outreach (FAMPWS) Normal 0 06-29-2019 [place] [facility] LOVELY DEVI ([id number]) 1945 [facility] Date Time Provider Department ([id number]) 06/29/19 JEFFY FONTENOT (RN) FAMPWS During your [...] concern s Pt reports will f/u with [facility] Cardiology is 6 mths ( Pl ease see #6 below: his recent ICD evaluation showed 1 nonsustained VT episode) - [facility] 05/30/19 Cardiology Appt with Francis Kwok NP [facility] 06/08/19 ICD Pacemaker Interrogation completed 05/30/19 OV Francis Kwok NP / [facility] Addendum Excerpt noted: Assessment AND Plan 1. Atherosclerotic heart disease of [place] coronary artery with other forms of angina pectoris I25.118 NAW-Xnvuz-Eal Cx; PCI-Cutting Balloon Angioplasty of ISR-ost ium [...] History of coronary artery stent placement Z95.5 RMK-Cepxg-CS9; PCI-Cutting Balloon Angioplasty of ISR-ostium of prox OM1 11/22/02; PCI-stent to proximal OM1 01/2008; PCI- IFE-VMG-Pvlo OM1 w/ 2.5 x 12 mm Promus [...] Orders Orders: 12 Lead E[facility] performed by [facility] Today 6. 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 Corie Bardales RN June 29, 2019 12:10 PM Corie Bardales RN June 29, 2019 6:57 PM LEATHA Kebede MATRIX WORKER.ELBA 07/01/2019 11:35 AM Signed Noted. 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 provider found Lovely Devi is a 73 year old year old male patient being evaluated today for anticoagulation Telemanagement visit. Patient is currently on the following anticoagulant Warfarin Labs PT INR (no units) Date Value 11/26/2018 Test sent to [facility]. 10/16/2017 1.8 01/16/2017 Test sent to [facility]. INR (POCT) (no units) Date Value [...] Pharmacy Anticoagulation Clinic Pharmacy Anticoagulation Clinic Pager: [phone] Description Patient has 3 mg tablets of warfarin. Patient takes in the m orning. . Allergies As of Date: 06/29/2019 Noted Allergy Reaction MORPHINE 02/28/2005 ROCEPHIN (CEFTRIAXONE SODIUM) 06/20/2014 14 - Other: See Com ments Comments: Hot flashes; redness to skin Date Reviewed: 04/28/2019 Reviewed by: Linwood ([facility]) JAZZY Carpenter - Fully Assessed Reason [...] on 2019-06-27 CNPN Telephone (FAMPWS) Normal 06-27-2019 [place] [facility] LOVELY DEVI ([id number]) 1945 [facility] Date Time Provider Department ([id number]) 06/27/19 MORGAN VALDEZ III FAMPWS During your [...] skin Date Reviewed: 04/28/2019 Reviewed by: Linwood ([facility]) JAZZY Carpenter - Fully Assessed Reason [...] Normal 06-25-2019 [facility] LOVELY DEVI ([id number]) 1945 M [place] Date Time Provider Department ([id number]) 06/25/19 MORGAN VALDEZ III FAMPWS During your visit today, we recorded the following informati on about you: Allergies As of Date: 06/25/2019 Noted Allergy Reaction MORPHINE 02/28/2005 ROCEPHIN (CEFTRIAXONE SODIUM) 06/20/2014 14 - Other: See Com ments Comments: Hot flashes; redness to skin Date Reviewed: 04/28/2019 Reviewed by: Linwood ([facility]) JAZZY Carpenter - Fully Assessed Reason [...] mouth once ajay * LANCETS Use with hyperWALLET Systemsuch Glucometer * ASPIRIN 81 MG TABLET Take [...] on 06/27/19 cnpn on 2019-06-15 CNPN Telephone ([facility]) Normal 06-15-2019 [place] [facility] LOVELY DEVI ([id number]) 1945 M [facility] Time Provider Department ([id number]) 06/15/19 BLOSSOM (PHARMACIST)BRIJESH During your visit today, we recorded the following informati on about you: JOLEEN CERRATO, PHARMACIST 06/15/2019 10:12 AM Signed Tried pt twice but it kept ringing with no answer. Will attempt him later today. Joleen Cerrato, PharmD Pharmacy Anticoagulation Clinic Anshul Dailey 06/15/2019 3:15 PM Signed [facility]ticoagulation [facility] Referring provider: No ref. provider found Lovely Devi is a 73 year old year old male patient being evaluated today for anticoagulation Telemanagement visit. Patient is currently on the following anticoagulant Warfarin Labs PT INR (no units) Date Value 11/26/2018 Test sent to [facility]. 10/16/2017 1.8 01/16/2017 Test sent to [facility]. INR (POCT) (no units) Date Value [...] Pharmacy Anticoagulation Clinic Pharmacy Anticoagulation Clinic Pager: [phone] Description Patient has 3 mg tablets of warfarin. Patient takes in the m orning. . Allergies As of Date: 06/15/2019 Noted Allergy Reaction MORPHINE 02/28/2005 ROCEPHIN (CEFTRIAXONE SODIUM) 06/20/2014 14 - Other: See Com ments Comments: Hot flashes; redness to skin Date Reviewed: 04/28/2019 Reviewed by: Linwood ([facility]) JAZZY Carpenter - Fully Assessed Reason [...] mouth once ajay * LANCETS Use with [employer]Me Glucometer * ASPIRIN 81 MG TABLET Take [...] (PHARMACIST)LACEY on cnpn on 2019-05-25 CNPN Telephone ([facility]) Normal 05-25-2019 [place] [facility] LOVELY DEVI ([id number]) 1945 M [place] Date Time Provider Department ([id number]) 05/25/19 BLOSSOM (PHARMACIST)BRIJESH During your visit today, we recorded the following informati on about you: JOLEEN CERRATO PHARMACIST 05/25/2019 4:52 PM Signed Patient was due to test INR today will continue to monitor f or results. Joleen Cerrato PharmD Pharmacy Anticoagulation Clinic Tahira Moore Pharmacist 06/01/2019 9:01 AM Signed [facility]ticoagulation [facility] Referring provider: No ref. provider found Lovely Devi is a 73 year old year old male patient being evaluated today for anticoagulation Telemanagement visit. Patient is currently on the following anticoagulant Warfarin Labs PT INR (no units) Date Value 11/26/2018 Test sent to [facility]. 10/16/2017 1.8 01/16/2017 Test sent to [facility]. INR (POCT) (no units) Date Value [...] was advised to call the [facility] @ [phone] for any questions or concerns. Tahira Moore PharmD Clinical Pharmacist, Pharmacy Anticoagulation Clinic Pharmacy Anticoagulation Clinic Pager: [phone] Description Patient has 3 mg tablets of warfarin. Patient takes in the m orning. . Allergies As of Date: 05/25/2019 Noted Allergy Reaction MORPHINE 02/28/2005 ROCEPHIN (CEFTRIAXONE SODIUM) 06/20/2014 14 - Other: See Com ments Comments: Hot flashes; redness to skin Date Reviewed: 04/28/2019 Reviewed by: Linwood ([facility]) JAZZY Carpenter - Fully Assessed Reason [...] on progress on 2019-03 PROGRESS HNO ID: [id number] Normal 04-28-2019 [facility] Author: Morgan Valdez III [place] ([id number]) Service: ? Author Type: Physician Type: Progress [...] G47.33 327.23 - fax compliance download to [phone] - flash glucose sensor (FREESTYLE ANITRA 14 [...] mouth once daily. - blood sugar diagnostic (TheCommentor BLOOD GLUCOSE SYSTEM) test strip Use as [...] of vessel, na tive or graft s/[place] - Diverticulosis of colon (without [...] ventricular tachycardia (HCC) - Snoring - Stroke ([facility]) - Tinea of nail 01/13/2011 [...] 2019-04-28 CNOV Office Visit (FAMPWS) Normal 04-28-19 [place] [facility] LOVELY DEVI ([id number]) 1945 M [place] Date Time Provider Department ([id number]) 04/28/19 10:20 AM MORGAN VALDEZ IIIWS During [...] G47.33 327.23 - fax compliance download to [phone] - flash glucose sensor (FREESTYLE ANITRA 14 [...] mouth once daily. - blood sugar diagnostic (TheCommentor BLOOD GLUCOSE SYSTEM) test strip Use as [...] TOUCH ULTRASO FT LANCETS) lancets Use with KeyMe Glucometer as directed - Aspirin 81 mg [...] of vessel, na tive or graft s/p [place] - Diverticulosis of colon (without [...] III MD Referring Provider: MORGAN VALDEZ III [[id number]] Allergies As of Date: 04/28/2019 Noted Allergy Reaction MORPHINE 02/28/2005 ROCEPHIN (CEFTRIAXONE SODIUM) 06/20/2014 14 - Other: See Com ments Comments: Hot flashes; redness to skin Date Reviewed: 04/28/2019 [facility]: [facility] JAZZY Carpenter - Fully Assessed Reason [...] Order(s):ALBUMIN/CREAT RATIO RND UR [SQUACR] Order #: [id number] FUTURE HGB A1C [TSFII2K] Order #: [id number] FUTURE LIPID PANEL BASIC [SQLIPB] Order #: [id number] FUTURE COMP METABOLIC PANEL [SQCMP] Order #: [id number] FUTURE Prescriptions as of 04/28/2019 Sig: FUROSEMIDE [...] 25 Hydroxy 28.0 31.0-80.0 ng/mL Low 0 [facility] ([id number]) Comment: Result Comment: Classificati on of 25 [place] Vitamin D status: Insufficiency/Moderate Defic iency: < or = 30 ng/mL Sufficiency/Optimal Levels: 31 to 80 ng/mL Toxicity: > 100 ng/mL Test performed by chemilumin escent immunoassay. Performed By: #### VITD, HBA 1C, CMP #### [facility] [address], [place] [address] hemoglobin a1c on HbA1c (Bld) [Mass fraction] 6.8 4.3-5.6 % High [facility] (97979) Comment: Result Comment: [place] Dominique betes Association guidelines indicate that patients with HgbA1c in the range 5.7-6.4% are at increased risk for development of diabetes, and intervention by lifestyle modification may be beneficial. HgbA1c greater o r equal to 6.5% is considered diagnostic of diabetes. Performed By: #### VITD, HBA 1C, CMP ####[facility] [address] [place], [place] [address] HbA1c (Bld) [Mass fraction] 148 mg/dL Normal [facility] (53193) Comment: Result Comment: eAG: (Wilnera devin average glucose) is a calculated value from HgbA1c and is guest service representative of the average blood glucose level in the last 2-3 month period. Performed By: #### VITD, HBA 1C, CMP ####[place] [address] [place] [address] [phone] comp metabolic panel on 2019-04-21 Albumin [Mass/Vol] 4.5 3.9-4.9 g/dL Normal 04-21-2019 [facility] (49197) Comment: Performed By: #### VITD, HBA 1C, CMP ####[place] [address] [place] [address] ALP [Catalytic activity/Vol] 51 38-113 U/L Normal 0 04-21-2019 [facility] (10683) Comment: Performed By: #### VITD, HBA 1C, CMP ####[place] [address] [place] [address] [phone] ALT [Catalytic activity/Vol] 33 10-54 U/L Normal 0 04-21-2019 [facility] (00565) Comment: Performed By: #### VITD, HBA 1C, CMP ####[place] [address] [place] [address] Anion gap [Moles/Vol] 13 9-18 mmol/L Normal 04-21-19 [facility] (39366) Comment: Performed By: #### VITD, HBA 1C, CMP ####[place] [address] [place] [address] [phone] AST [Catalytic activity/Vol] 36 14-40 U/L Normal 0 04-21-2019 [facility] (07205) Comment: Performed By: #### VITD, HBA 1C, CMP ####[place] [address] [place] [address] [phone] Bilirubin [Mass/Vol] 0.6 0.2-1.3 mg/dL Normal 0 [facility] (02399) Comment: Performed By: #### VITD, HBA 1C, CMP ####[place] [address] [place] [address] [phone] Calcium [Mass/Vol] 9.3 8.5-10.2 mg/dL Normal 04-21-2019 [facility] (80037) Comment: Performed By: #### VITD, HBA 1C, CMP ####[place] [address] [place] [address] [phone] Chloride [Moles/Vol] 98 97-105 mmol/L Normal 0 [facility] (16775) Comment: Performed By: #### VITD, HBA 1C, CMP ####[place] [address] [place] [address] [phone] CO2 [Moles/Vol] 27 22-30 mmol/L Normal 04-21-2019 [facility] (23477) Comment: Performed By: #### VITD, HBA 1C, CMP ####[place] [address] [place] [address] [phone] Creatinine [Mass/Vol] 1.35 0.73-1.22 mg/dL High 04-21-19 20 [facility] (28021) Comment: Performed By: #### VITD, HBA 1C, CMP ####[place] [address] [place] [address] [phone] eGFR- Amer. >60 Normal 04-21-2019 [facility] (29342) Comment: Performed By: #### VITD, HBA 1C, CMP ####[place] [address] [place] [address] [phone] GFR/1.73 sq M predicted among 52 . Normal 04-21-2019 [facility] non-blacks MDRD (S/P/Bld) [Vol (97772) rate/Area] Comment: Result Comment: eGFR (Estima devin [...] Performed By: #### VITD, HBA 1C, CMP ####[facility] [place] [address] [phone] Glucose [Mass/Vol] 185 74-99 mg/dL High 04-21-2019 [facility] (60374) Comment: Result Comment: The [place] Diabetes Association (ADA) provides guidance for cutoff [...] for diagnosis of diabetes. Reference: Standards of [facility] Care in Diabetes 2016, [place] Diabetes Association. Diabetes Care. 2016.39(Suppl 1). Performed By: #### VITD, HBA 1C, CMP ####[facility] [address] [place] [address] [phone] Potassium [Moles/Vol] 4.6 3.7-5.1 mmol/L Normal 04-21-19 [facility] (00894) Comment: Performed By: #### VITD, HBA 1C, CMP ####[facility] [address] [place] [address] Protein [Mass/Vol] 7.1 6.3-8.0 g/dL Normal 04-21-2019 [facility] (29112) Comment: Performed By: #### VITD, HBA 1C, CMP ####[facility] [address] [place] [address] [phone] Sodium [Moles/Vol] 138 136-144 mmol/L Normal 04-21-2019 [facility] (65098) Comment: Performed By: #### VITD, HBA 1C, CMP ####[facility] [address] [place] [address] [phone] Urea nitrogen [Mass/Vol] 25 9-24 mg/dL High 04-21 [facility] (68164) Comment: Performed By: #### VITD, HBA 1C, CMP ####[facility] [place] [address] [phone] progress on 2019-03 PROGRESS HNO ID: [id number] Normal 04-19-2019 [facility] Author: Jeffy Fontenot (Rn) [place] ([id number]) Service: ? 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 Author Type: Nurse Practitioner Type: [...] of vessel, na tive or graft s/p [place] - Diverticulosis of colon (without [...] Laterality Date - [facility]. Anthony-repeat 3 years-11/2020 - COLONOSCOPY W/BX 02/21/09 - EGD W/O OR W/BRUSH/WASH EGD - EGD W/O OR W/BRUSH/WASH 02/16/08 EGD inpt [facility] H-pylori negative - EGD W/O OR W/BRUSH/WASH 05/24/15 EGD - EGD W/O OR W/BRUSH/WASH 12/21/2017 Dr. Anthnoy-repeat 3 years-11/2020 - HEART CATHETERIZATION 12/15/2014 [facility] - see scanned documents - HEART [...] G47.33 327.23 - fax compliance download to [phone] flash glucose sensor (FREESTYLE ANITRA 14 DAY [...] by mouth once daily. blood sugar diagnostic (TheCommentor BLOOD GLUCOSE SYSTEM) test s trip Use [...] (ONE TOUCH ULTRASOFT LANCETS) lancets Use with [facility] Glucometer as directed Aspirin 81 mg [...] including hand washing. - Instructed to call trade mark attorney or go to ED if high fev [...] and symptoms. All questions addressed. Ariana Arias APRN.RETURNING OFFICER cnov on 2019-04-05 CNOV Office Visit (UCWSTR) Normal 04-05-19 [place] [facility] LOVELY DEVI ([id number]) 1945 M [place] Date Time Provider Department ([id number]) 04/05/19 11:15 AM ARIANA ARIAS [facility] During your visit today, we recorded the [...] of vessel, na tive or graft s/p [place] - Diverticulosis of colon (without [...] - EGD W/O [facility] W[facility]BR[facility] - [facility] W/O OR W/BRUSH/WASH 05/24/15 EGD - EGD W/O OR W/BRUSH/WASH 12/21/2017 Dr. Anthony-repeat 3 years-11/2020 - HEART CATHETERIZATION 12/15/2014 [facility] - see scanned documents - HEART [...] G47.33 327.23 - fax compliance download to [phone] flash glucose sensor (FREESTYLE ANITRA 14 DAY [...] by mouth once daily. blood sugar diagnostic (TheCommentor BLOOD GLUCOSE SYSTEM) test s trip Use [...] including hand washing. - Instructed to call trade mark attorney or go to ED if high fever, [...] e person should be evaluated by an trade mark attorney. Contact lens wearers ? People who wear [...] within two weeks, an examination with an trade mark attorney may be recomme nded. CONJUNCTIVITIS PREVENTION Bacterial [...] person melinda uld be evaluated by an trade mark attorney. Contact lens wearers ? People who wear [...] touching their eyes, should probably not attend [facility] ool until the discharge has [...] 25 Hydroxy 25.2 31.0-80.0 ng/mL Low 9 [facility] (78899) Comment: Result Comment: Classificati on of 25 [place] Vitamin D status: Insufficiency/Moderate Defic iency: < or = 30 ng/mL Sufficiency/Optimal Levels: 31 to 80 ng/mL Toxicity: > 100 ng/mL Test performed by chemilumin escent immunoassay. Performed By: #### FERR, VIT D, IRON, TSH #### [facility] [address] [place] [id number] tsh on 2019-03-24 TSH Qn 2.590 0.270-4.200 uU/mL Normal 03-24-2019 [facility] (99189) Comment: Performed By: #### FERR, VIT D, IRON, TSH #### [facility] [address] [place] [phone] progress on 2019-02 PROGRESS HNO ID: [id number] Normal 03-24-2019 [place] Author: Ariana Richey) [facility] Service: ? [place] Author Type: Nurse Practitioner ([id number]) Type: Progress Notes Filed: 03/24/2019 4:47 PM Note Text: [facility] Follow-up/Established patient visit Date of last visit: 01/26/19 ? Sleep Disorder Dx Impression: Obstructive sleep apnea -?Compliant and beneffiting Residual daytime sleepiness.? ? Psychiatric Diagnoses: na ? Other Conditioning Diagnoses CAD, Afib, Petit's. Cardiomegaly, Obesity, Dysphagia, HTN, Reflux, DM2,?Neck mass lower left neck ? Case Formulation / [place] (may include pt's hopes, fears, ex pectations, [...] MD ? For this visit, a total jifu-aj-aypv time with the patient c omprised 30 [...] of vessel, na tive or graft s/p [place] - Diverticulosis of colon (without [...] G47.33 327.23 - fax compliance download to [phone] flash glucose sensor (FREESTYLE ANITRA 14 DAY [...] by mouth once daily. blood sugar diagnostic (TheCommentor BLOOD GLUCOSE SYSTEM) test s trip Use [...] depending on your insurance coverage. Contact your [employer] company for new supplies as needed. - Patient to talk to [facility] at [facility] on mask fit. If unab le [...] Follow up in 3 month(s). Ariana Bernal APRN.RETURNING OFFICER PROGRESS HNO ID: [id number] Normal 03-24-2019 [place] Author: Deniz George MUSIC WRITER Clinic Service: ? [place] Author Type: ? (0000 0) Type: Progress Notes Filed: 03/24/2019 10:54 AM Note Text: iron and tibc on 17-03-26 Iron [Mass/Vol] 102 41-186 ug/dL Normal 03-24-2019 [facility] ([id number]) Comment: Performed By: #### FERR, VIT D, IRON, TSH #### [facility] [address] [place], [place] [address] TIBC 402 232-386 ug/dL High 03-24-2019 [facility] (24937) Comment: Performed By: #### FERR, VIT D, IRON, TSH #### [facility] [address], [place] [address] Transferrin Saturatn 25 15-57 % Normal 9 [facility] (92696) Comment: Performed By: #### FERR, VIT D, IRON, TSH #### [facility] [address] [place], [place] [address] ferritin on 2019-02 Ferritin [Mass/Vol] 61.8 30.3-565.7 ng/mL Normal 9 [facility] (55252) Comment: Performed By: #### FERR, VIT D, IRON, TSH #### [facility] [address], [place] [address] cnov on 2019-03-24 CNOV Office Visit (NEMOWS) Normal 03-24-[address] [place] [address] [facility] LOVELY DEVI ([id number]) 1945 [facility] Date Time Provider Department ([id number]) 03/24/19 11:00 AM ARIANA BERNAL (ELBA) NEMOWS During your visit today, we recorded the following informati on about you: Pulse Respiration Blood pressure Weight 62/minute 16/minute 123/58 122.5 kg Deniz George LPN 03/24/2019 10:54 AM Signed Ariana Bernal APRN.ELBA 03/24/2019 4:47 PM Signed [facility] Follow-up/Established patient visit Date of last visit: 01/26/19 ? Sleep Disorder Dx Impression: Obstructive sleep apnea -?Compliant and beneffiting Residual daytime sleepiness.? ? Psychiatric Diagnoses: na ? Other Conditioning Diagnoses CAD, Afib, Petit's. Cardiomegaly, Obes ity, Dysphagia, HTN, Reflux, DM2,?Neck mass lower left neck ? Case Formulation / [place] (may include pt's hopes, fears, ex pectations, [...] MD ? For this visit, a total kijj-tg-zpnb time with the patient c omprised 30 minutes, with at least 50% of that time devoted to zagl-uy-ufmv counseling and coordination of care, with especial [...] of vessel, na tive or graft s/p [place] - Diverticulosis of colon (without [...] disease, with long-term current use of insulin ([facility]) 06/15/2017 - Unspecified essential hypertension [...] G47.33 327.23 - fax compliance download to [phone] flash glucose sensor (FREESTYLE ANITRA 14 DAY [...] by mouth once daily. blood sugar diagnostic (TheCommentor BLOOD GLUCOSE SYSTEM) test s trip Use [...] TOUCH ULTRASOFT LANCETS) lancets Us e with [employer] Glucometer as directed Aspirin 81 mg ORAL [...] depending on your insurance coverage. Contact your [facility] [employer] ([employer] company for new supplies as needed. - [...] covered by insurance. Referring Provider: NIK PUENTE [[id number]] Allergies As of Date: 03/24/2019 Noted Allergy Reaction MORPHINE 02/28/2005 ROCEPHIN (CEFTRIAXONE SODIUM) 06/20/2014 14 - Other: See Com ments Comments: Hot flashes; redness to skin Date Reviewed: 03/24/2019 Reviewed by: Ariana (Work Adjustment Instructor) Gabe - Fully Assessed Reason for Visit: [...] tabletRfl: 1 FERRITIN BLD [SQFERR] Order #: [id number] FUTURE IRON + TIBC [SQIRON] Order #: [id number] FUTURE TSH BLD [SQTSH] Order #: [id number] FUTURE VITAMIN D 25 HYDROXY [SQVITD] Order #: [id number] FUTURE rOPINIRole (REQUIP) 0.5 mg tabletTake 1 [...] file. Cosign accepted by MORGAN VALDEZ III, MD[[id number]] on 06/18/19 13 5:06 PM traZODone (DESYREL) 50 mg tablet 30 t* 0 02/17/2019 03/24/20 Route: ORAL Sig: Take 1 tablet by mouth daily at bedtime. Disc: Reason for discontinue is not on file. Disposition: Return in about 3 months (around 06/23/2019). Follow-up and Disposition History Recorded Encounter Status:Closed by ARIANA BERNAL on 03/24/19 progress on 2019-01 PROGRESS HNO ID: [id number] Normal 02-21-2019 [facility] Author: Linwood Carpenter MA [place] ([id number]) Service: ? Author Type: Oracle Obiee Developer Type: Progress Notes Filed: 02/21/2019 7:22 PM Note Text: Per PCP written response: PCP in agreement with instructions below. Linwood Carpenter CMA PROGRESS HNO ID: [id number] Normal 02-21-2019 [facility] Author: Melany Yuen RN [place] ([id number]) Service: ? Author Type: ? Type: Progress Notes Filed: 02/21/2019 10:36 AM Note Text: patient had inr completed at [facility] patients inr is 2.9 (patients inr range [...] on 2019-01 OBSOLETE Refill (NEMOWS) Normal 02-17-2019 [facility] LOVELY DEVI ([id number]) 1945 M [place] Date Time Provider Department (48809) 02/17/19 NIK PUENTE During your visit today, [...] lower left neck ? Case Formulation / [place] (may include pt's hopes, fears, ex pectations, [...] skin Date Reviewed: 01/26/2019 Reviewed by: Linwood ([facility]) JAZZY Carpenter - Fully Assessed Reason for Visit: Refill Request [94] Order(s):traZODone (DESYREL) 50 mg tabletTake 1 tablet by mo [facility] daily at bedtime.Disp: 30 tabletRfl: [...] Normal 02-17-2019 [facility] LOVELY DEVI ([id number]) 1945 [facility] Date Time Provider Department (04076) 02/17/19 DENIZ GARSIA During your visit today, [...] skin Date Reviewed: 01/26/2019 Reviewed by: Linwood ([facility]) JAZZY Carpenter - Fully Assessed Reason [...] mouth once ajay * LANCETS Use with [employer]WALLET Systemsuch Glucometer * COLESTIPOL 1 GRAM TABLET Take [...] on file. Encounter Status:Closed by DENIZ GARSIA RETURNING OFFICER on 02/17/19 obsolete on 2019-01 OBSOLETE Refill (FAMPWS) Normal 02-04-2019 [facility] LOVELY DEVI ([id number]) 1945 M [place] Date Time Provider Department (63073) 02/04/19 MORGAN VALDEZ III During your visit [...] skin Date Reviewed: 01/26/2019 Reviewed by: Linwood ([facility]) JAZZY Carpenter - Fully Assessed Reason [...] mouth once ajay * LANCETS Use with [employer] Glucometer * COLESTIPOL 1 GRAM TABLET Take [...] 02/04/19 progress on 2018-12 PROGRESS HNO ID: [id number] Normal 01-26-2019 [facility] Author: Morgan Valdez III [place] ([id number]) Service: ? Author Type: Physician Type: Progress [...] G47.33 327.23 - fax compliance download to [phone] flash glucose sensor (FREESTYLE ANITRA 14 DAY [...] by mouth once daily. blood sugar diagnostic (TheCommentor BLOOD GLUCOSE SYSTEM) test s trip Use [...] of vessel, na tive or graft s[place]p [place] - Diverticulosis of colon (without [...] Alatorre MD, III MD PROGRESS HNO ID: [id number] Normal 01-26-2019 [facility] Author: Nik Amado ([id number]) Service: ? Author Type: Physician Type: Progress Notes Filed: 01/26/2019 12:22 PM Note Text: [facility] Follow-up/Established patient visit Reason for Visit: med review. Time Out: 9:10 Time In: 8:53 For this visit, a total qwft-db-elan time with the patient c omprised 15 [...] lower left neck. ? Case Formulation / [place] (may include pt's hopes, fears, ex pectations, [...] G47.33 327.23 - fax compliance download to [phone] flash glucose sensor (FREESTYLE ANITRA 14 DAY [...] by mouth once daily. blood sugar diagnostic (TheCommentor BLOOD GLUCOSE SYSTEM) test s trip Use [...] mass lower left neck Case Formulation / [place] (may include pt's hopes, fears, ex pectations, [...] CNOV Office Visit (FAMPWS) Normal 01-27-20 19 [place] [facility] LOVELY DEVI ([id number]) 1945 [facility] Date Time Provider Department ([id number]) 01/26/19 9:40 AM MORGAN VALDEZ III FAMPWS [...] humidity and lifetime supplies. Dx. JESSICA G47.33 327.87 - fax compliance download to [phone] flash glucose sensor (FREESTYLE ANITRA 14 DAY [...] by mouth once daily. blood sugar diagnostic (TheCommentor BLOOD GLUCOSE SYSTEM) test s trip Use [...] TOUCH ULTRASOFT LANCETS) lancets Us e with hyperWALLET Systemsuch Glucometer as directed colestipol 1 gram tablet [...] of vessel, na tive or graft s/p [facility] [place] - Diverticulosis of colon (without [...] disease, with long-term current use of insulin ([facility]) 06/15/2017 - Unspecified essential hypertension [...] III MD Referring Provider: MORGAN VALDEZ III [[id number]] Allergies As of Date: 01/26/2019 Noted Allergy Reaction MORPHINE 02/28/2005 ROCEPHIN (CEFTRIAXONE SODIUM) 06/20/2014 14 - Other: See Com ments Comments: Hot flashes; redness to skin Date Reviewed: 01/26/2019 Reviewed by: Linwood ([facility]) JAZZY Carpenter - Fully Assessed Reason for Visit: 3 month check up [Other] Primary Visit Diagnosis:Type 2 diabetes mellitus with st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, with long-term current use of insulin ([facility]) [E11.22, N18.3, Z79.4] Other Visit Diagnoses:Acute on chronic systolic congestive h eart failure ([facility]) [I50.23] Class 2 severe obesity due to excess calories with serious comorbidity and body mass index (BMI) of 38.0 to 38.9 in adult ([facility]) [E66.01, Z68.38] ASHD (arteriosclerotic heart disease) [I25.10] Paroxysmal atrial fibrillation ([facility]) [I48.0] Anticoagulated on Coumadin [Z79.01] Controlled type 2 diabetes mellitus without complication, with long-term current use of insulin ([facility]) [E11.9, Z79.4] Vitamin D 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] Order(s):HGB A1C [HVMQS5F] Order #: [id number] FUTURE COMP METABOLIC PANEL [SQCMP] Order #: [id number] FUTURE insulin lispro (HUMALOG U-100 INSULIN) 100 unit/mL injection 18 units with breakfast, 17 units at lunch, and 24 units with supper. Disp: Rfl: VITAMIN D 25 HYDROXY [SQVITD] Order #: [id number] FUTURE Prescriptions as of 01/26/2019 Sig: TRAZODONE [...] 01/26/19 [place] Office Visit ([place]) Normal 01-27-20 [place] [facility] LOVLEY DEVI ([id number]) 1945 M [place] Date Time Provider Department ([id number]) 01/26/19 8:40 AM NIK PUENTE During your visit today, we recorded the following informati on about you: Pulse Respiration Blood pressure Weight 60/minute 20/minute 130/82 121.1 kg Nik Puente MD 01/26/2019 12:22 PM Signed [facility] Follow-up/Established patient visit Reason for Visit: med review. Time Out: 9:10 Time In: 8:53 For this visit, a total ubgv-at-vibo time with the patient c omprised 15 minutes, with at least 50% of that time devoted to qego-vu-amkn counseling and coordination of care, with especial emph asis placed on answering the patient?s and/or family?s questions in a form that they can unde rstand and appreciate. Relevant Medications, allergies, hx Reviewed: yes Date of last visit: 11/24/18 Insurance: Medicare Home Location: [place] From Last Visit: Sleep Disorder Dx Impression: Obstructive sleep apnea -?Compliant and beneffiting Residual daytime sleepiness.? ? Psychiatric Diagnoses: na ? Other Conditioning Diagnoses CAD, Afib, Petit's. Cardiomegaly, Obes ity, Dysphagia, HTN, Reflux, DM2,?Neck mass lower left neck. ? Case Formulation / [place] (may include pt's hopes, fears, ex pectations, [...] G47.33 327.23 - fax compliance download to [phone] flash glucose sensor (FREESTYLE ANITRA 14 DAY [...] by mouth once daily. blood sugar diagnostic (TheCommentor BLOOD GLUCOSE SYSTEM) test s trip Use [...] mass lower left neck Case Formulation / [place] (may include pt's hopes, fears, ex pectations, [...] Nik Puente MD Referring Provider: ARIANA BERNAL ([facility]) [[id number]] Allergies As of Date: 01/26/2019 Noted Allergy Reaction MORPHINE 02/28/2005 ROCEPHIN (CEFTRIAXONE SODIUM) 06/20/2014 14 - Other: See Com ments Comments: Hot flashes; redness to skin Date Reviewed: 01/26/2019 Reviewed by: Linwood ([facility]) JAZZY Carpenter - Fully Assessed Reason [...] (BMI) of 38.0 to 38.9 in adult ([facility]) [E66.01, Z68.38] 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, 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, with long-term current use of insulin ([facility]) [E11.22, N18.3, Z79.4] Localized swelling, mass and lump, neck [R22.1] Type 2 diabetes mellitus with peripheral neuropathy ([facility]) [E11.42] Order(s):traZODone (DESYREL) 50 mg [...] mouth once ajay * LANCETS Use with hyperWALLET Systemsuch Glucometer * COLESTIPOL 1 GRAM TABLET Take [...] 01/26/19 progress on 2018-12 PROGRESS HNO ID: [id number] Normal 01-24-2019 [facility] Author: Linwood Carpenter MA [place] ([id number]) Service: ? Author Type: Oracle Obiee Developer Type: Progress Notes Filed: 01/24/2019 4:23 PM Note Text: Per PCP written response: PCP in agreement with instructions below. Tracker updated. Linwood Carpenter CMA PROGRESS HNO ID: [id number] Normal 01-24-2019 [facility] Author: Melany Yuen RN [place] ([id number]) Service: ? Author Type: ? Type: Progress Notes Filed: 01/24/2019 10:44 AM Note Text: patient had inr completed at [facility] patients inr is 2.9 (patients inr range [...] INR. progress on 2018-12 PROGRESS HNO ID: [id number] Normal 01-17-2019 [facility] Author: Linwood Carpenter MA [place] ([id number]) Service: ? Author Type: Oracle Obiee Developer Type: Progress Notes Filed: 01/17/2019 4:16 PM Note Text: Per PCP written response: Same coumadin, recheck on 01/31 as scheduled. Tracker updated . Patient notified, voiced understanding. Linwood Carpenter CMA PROGRESS HNO ID: [id number] Normal 01-17-2019 [facility] Author: Melany Yuen RN [place] ([id number]) Service: ? Author Type: ? Type: Progress [...] Cholesterol [Mass/Vol] 118 <200 mg/dL Normal 019 [facility] ([id number]) Comment: Result Comment: <200 mg/dL, Desirable 200-239 mg/dL, Borderline hi gh >239 mg/dL, High Performed By: #### CMP, LIPB , HBA1C ####[facility] [address] [place] [address] [phone] Cholesterol in HDL [Mass/Vol] 32 >39 mg/dL Low 01-14-2019 [facility] (78182) Comment: Result Comment: 40-59 mg/dL, Acceptable >59 mg/dL, High: Negative ri sk factor for coronary heart disease <40 mg/dL, Low: Positive ris k factor for coronary heart disease Performed By: #### CMP, LIPB , HBA1C ####[facility] [address] [place] [address] [phone] Cholesterol in LDL 52 <100 mg/dL Normal 01-14-2019 [facility] [Mass/Vol] [place] ([address]605) Comment: Result Comment: <100 mg/dL, Optimal 100-129 mg/dL, Near optimal/ above optimal 130-159 mg/dL, Borderline hi gh 160-189 mg/dL, High >189 mg/dL, Very high Secondary prevention optimal LDL Cholesterol levels are recommended to be < 70 mg/dL Performed By: #### CMP, LIPB , HBA1C ####[place] [address] [phone] Fasting Time 13 hrs Normal 01-14-2019 [facility] (75828) Comment: Performed By: #### CMP, LIPB , HBA1C ####[place] [address] [phone] LDL:HDL Ratio 1.63 <2.54 Normal 01-14-2019 [facility] (18042) Comment: Result Comment: Reference: 1. National Cholesterol Educ ation Program ATP III Guideline At-A-Glance Quick Desk Reference: National Heart, Lung, and Blood [place]. National Institutes of Health. 2001: NIH Publication No. 01-3305. 2. An International Atherosc lerosis Society position paper: global recommendations for the management of dyslipidemia: executive summary, Atherosclerosis. 2014: 232(2):410-413. Performed By: #### CMP, LIPB , HBA1C ####[place] [address] [phone] Non HDL Cholesterol 86 <130 mg/dL Normal 01-14-2019 [facility] (68538) Comment: Result Comment: <130 mg/dL, Optimal 130-159 mg/dL, Near optimal/ above optimal 160-189 mg/dL, Borderline hi gh 190-219 mg/dL, High >219 mg/dL, Very high Secondary prevention optimal non HDL Cholesterol levels are recommended to be < 100 mg/dL Performed By: #### CMP, LIPB , HBA1C ####[place] [address] [phone] TC:HDL Ratio 3.69 <5.10 Normal 01-14-2019 [facility] (74700) Comment: Performed By: #### CMP, LIPB , HBA1C ####[place] [address] [phone] Triglyceride [Mass/Vol] 172 <150 mg/dL High 2018 [facility] (79603) Comment: Result Comment: <150 mg/dL, Normal 150-199 mg/dL, Borderline hi gh 200-499 mg/dL, High >499 mg/dL, Very high Performed By: #### CMP, LIPB , HBA1C ####[address] [place] [address] [phone] VLDL Cholesterol 34 <30 mg/dL High 01-14-2019 [facility] [place] [facility] (97219) Comment: Performed By: #### CMP, LIPB , HBA1C ####[address] [place] [address] [phone] hemoglobin a1c on 2 HbA1c (Bld) [Mass fraction] 7.3 4.3-5.6 % High [facility] (92278) Comment: Result Comment: [place] Dominique betes Association guidelines indicate that patients with HgbA1c in the range 5.7-6.4% are at increased risk for development of diabetes, and intervention by lifestyle modification may be beneficial. HgbA1c greater o r equal to 6.5% is considered diagnostic of diabetes. Performed By: #### CMP, LIPB , HBA1C ####[place] [address] [phone] HbA1c (Bld) [Mass fraction] 163 mg/dL Normal [facility] (12012) Comment: Result Comment: eAG: (Estima devin average glucose) is a calculated value from HgbA1c and is guest service representative of the average blood glucose level in the last 2-3 month period. Performed By: #### CMP, LIPB , HBA1C ####[place] [address] [address] [place] [address] [phone] comp metabolic panel on 2019-01-14 Albumin [Mass/Vol] 4.3 3.9-4.9 g/dL Normal 01-14-2019 [facility] (66365) Comment: Performed By: #### CMP, LIPB , HBA1C ####[address] [place] [address] [phone] ALP [Catalytic activity/Vol] 54 38-113 U/L Normal 1 [facility] (33516) Comment: Performed By: #### CMP, LIPB , HBA1C ####[place] [address] [address] [place] [address] [phone] ALT [Catalytic activity/Vol] 23 10-54 U/L Normal 1 [facility] (92797) Comment: Performed By: #### CMP, LIPB , HBA1C ####[place] [address] [address] [place] [address] Anion gap [Moles/Vol] 11 9-18 mmol/L Normal 01-15-20 19 [facility] (38697) Comment: Performed By: #### CMP, LIPB , HBA1C ####[place] [address] [address] [place] [address] AST [Catalytic activity/Vol] 25 14-40 U/L Normal 1 [facility] (03213) Comment: Performed By: #### CMP, LIPB , HBA1C ####[place] [address] [address] [place] [address] Bilirubin [Mass/Vol] 0.7 0.2-1.3 mg/dL Normal 9 [facility] (81599) Comment: Performed By: #### CMP, LIPB , HBA1C ####[place] [address] [address] [place] [address] Calcium [Mass/Vol] 8.6 8.5-10.2 mg/dL Normal 01-14-2019 [facility] (67671) Comment: Performed By: #### CMP, LIPB , HBA1C ####[place] [address] [address] [place] [address] [phone] Chloride [Moles/Vol] 102 97-105 mmol/L Normal 9 [facility] (11365) Comment: Performed By: #### CMP, LIPB , HBA1C ####[place] [address] [address] [place] [address] CO2 [Moles/Vol] 27 22-30 mmol/L Normal 01-14-2019 [facility] (93090) Comment: Performed By: #### CMP, LIPB , HBA1C ####[facility] [address] [place] [address] Creatinine [Mass/Vol] 1.24 0.73-1.22 mg/dL High 01-15-20 19 [facility] (98086) Comment: Performed By: #### CMP, LIPB , HBA1C ####[facility] [address] [place] [address] eGFR- Amer. >60 Normal 01-14-2019 [facility] (94434) Comment: Performed By: #### CMP, LIPB , HBA1C ####[facility] [place] [address] GFR/1.73 sq M predicted among 57 . Normal 01-14-2019 [facility] non-blacks MDRD (S/P/Bld) [Vol (74585) rate/Area] Comment: Result Comment: eGFR (Estima devin [...] Performed By: #### CMP, LIPB , HBA1C ####[facility] [address] [place] [address] [phone] Glucose [Mass/Vol] 191 74-99 mg/dL High 01-14-2019 [facility] (20185) Comment: Result Comment: The [place] Diabetes Association (ADA) provides guidance for cutoff [...] for diagnosis of diabetes. Reference: Standards of [facility] Care in Diabetes 2016, [place] Diabetes Association. Diabetes Care. 2016.39(Suppl 1). Performed By: #### CMP, LIPB , HBA1C ####[place] [address] [place] [address] [phone] Potassium [Moles/Vol] 4.5 3.7-5.1 mmol/L Normal 01-15-20 19 [facility] (64140) Comment: Performed By: #### CMP, LIPB , HBA1C ####[place] [address] [place] [address] [phone] Protein [Mass/Vol] 6.7 6.3-8.0 g/dL Normal 01-14-2019 [facility] (26211) Comment: Performed By: #### CMP, LIPB , HBA1C ####[facility] [place] [address] [phone] Sodium [Moles/Vol] 140 136-144 mmol/L Normal 01-14-2019 [facility] (38389) Comment: Performed By: #### CMP, LIPB , HBA1C ####[facility] [place] [address] [phone] Urea nitrogen [Mass/Vol] 23 9-24 mg/dL Normal 01-14 [facility] (02786) Comment: Performed By: #### CMP, LIPB , HBA1C ####[facility] [place] [address] [phone] cnnurse on [facility] Nurse Visit (FAMPWS) Normal 9 [facility] LOVELY DEVI ([id number]) 1945 M [place] Date Time Provider Department (54662) 01/14/19 11:20 AM [facility] During your visit today, we [...] mouth once ajay * LANCETS Use with KeyMe Glucometer * COLESTIPOL 1 GRAM TABLET Take [...] 2019-01-14 Absolute nRBC <0.01 <0.01 Normal 01-14-2019 [facility] (83287) Comment: Performed By: #### CBC #### [facility] [address] [place], [place] [address] Erythrocyte distribution 14.6 11.5-15.0 % Normal 01-14 [facility] width (RBC) [Ratio] [place] ([address]112) Comment: Performed By: #### CBC #### [facility] [address] [place], [place] [address] Hematocrit (Bld) [Volume 37.9 39.0-51.0 % Low 01-14 [facility] fraction] (29640) Comment: Performed By: #### CBC #### [facility] [address] [place], [place] [address] Hemoglobin (Bld) 12.0 13.0-17.0 g/dL Low 01-14-2019 [facility] [Mass/Vol] [place] (57014) Comment: Performed By: #### CBC #### [facility] [place], [place] [address] MCH (RBC) [Entitic mass] 29.4 26.0-34.0 pG Normal 01-14 [facility] (99559) Comment: Performed By: #### CBC #### [facility] [address] [place], [place] [address] MCHC (RBC) [Mass/Vol] 31.7 30.5-36.0 g/dL Normal 01-15-20 19 [facility] (39651) Comment: Performed By: #### CBC #### [facility] [address] [place] [address] MCV (RBC) [Entitic vol] 92.9 80.0-100.0 fL Normal 01-14 [facility] (66490) Comment: Performed By: #### CBC #### [facility] [address] [address] Platelet mean volume 10.5 9.0-12.7 fL Normal 9 [facility] (Bld) [Entitic vol] [place] ([address]35) Comment: Performed By: #### CBC #### [address] [address] Platelets (Bld) [#/Vol] 154 150-400 k/uL Normal 2018 [facility] (33553) Comment: Performed By: #### CBC #### [address] [address] RBC (Bld) [#/Vol] 4.08 4.20-6.00 m/uL Low 01-14-2019 C [facility] (07319) Comment: Performed By: #### CBC #### [facility] [address] [place], [place] [address] WBC (Bld) [#/Vol] 4.90 3.70-11.00 k/uL Normal 01-14-2019 [facility] (44340) Comment: Performed By: #### CBC #### [facility] [address] [place] [phone] albumin/creat ratio on 2019-01-14 Albumin Urine Random 15.6 mg/L Normal 9 [facility] (35388) Comment: Performed By: #### UACR #### [place] [address] [place], [place] [phone] Albumin/Creat Ratio 8 <30 mg/g Normal 01-14-2019 [facility] (95298) Comment: Result Comment: Adult Male a nd [...] 3(1), 1-150. Performed By: #### UACR #### [place] [address] [place], [place] [phone] Creatinine,Urine,Ran 206.0 20-300 mg/dL Normal 9 [facility] (16665) Comment: Performed By: #### UACR #### [facility] [place], [place] [phone] cnptoutreach on 12-07-14 CNPTOUTREACH Patient Outreach (FAMPST) Normal 1 [place] [facility] ANA ROSAALMITALOVELY CARY ([id number]) 1945 [facility] Date Time Provider Department (86303) 01/11/19 MORGAN VALDEZ III During your visit [...] Order(s):ALBUMIN/CREAT RATIO RND UR [SQUACR] Order #: [id number] FUTURE CBC [SQCBC] Order #: [id number] FUTURE Prescriptions as of 01/11/2019 Sig: LISINOPRIL [...] mouth once ajay * LANCETS Use with KeyMe Glucometer * COLESTIPOL 1 GRAM TABLET Take [...] congestive heart fail*INVALID FOR* Encounter Status:Closed by miiCard, PRODUSER on 01/26/19 main or intraop record on 2017-02-23 Main OR Intraop Record Normal 02-23- 017 [facility]) (57597) progress note-nurse on 2017-02-17 Progress Note-Nurse Normal 02-17-2017 [facility]) (13817) pro on 2017-02-17 INR Coag RelTime (PPP) 1.5 ratio Normal 017 [facility]) (89397) Comment: Result Comment: The [place] [employer] (CHEST, 1991, 102:312S-25S)recommended the rapeutic range for oral anticoagulant therapy is:LOW RISK: Prophylaxis of venous thrombosis INR: 2.0-3.0 Treatment of pulmonary embolism 2.0-3.0 P revention of systemic embolism 2.0-3.0HIGH RISK: Mechanical prosthetic valves 2.5-3.5 Performed By: #### CBC, ADIF F, ANEU, FIB, APTT, PRO, BMP, GFR ####[place] [address] Prothrombin time (PT) 17.7 9.0-14.5 seconds High 02-18-[address] [facility] Coag time (PPP) [facility]) (30061) Comment: Result Comment: Effective , Protime results may be affected by some antibiotics (i.e. Ciprofloxa patrice, Azithromycin, Bactrim) which may potentiate the action of oral anticoagu lants, with further increases in Protime/INR. Performed By: #### CBC, ADIF F, ANEU, FIB, APTT, PRO, BMP, GFR ####[place] [address] fib on 2017-02-17 Fibrinogen 302 250-550 mg/dL Normal 02-17-2017 [facility] ([place]) (98413) Comment: Performed By: #### CBC, ADIF F, ANEU, FIB, APTT, PRO, BMP, GFR ####[place] [address] cbc on 2017-02-17 Erythrocyte distribution 13.8 11.5-15.5 % Normal 02-17 [facility] Auto Ratio (RBC) [facility] ([place]) ([address]797) Comment: Performed By: #### CBC, ADIF F, ANEU, FIB, APTT, PRO, BMP, GFR ####[place] [address] Erythrocytes (RBC) 4.38 4.50-6.00 10 6/mcL Low 02-17-2017 [facility] ([place]) (0000 0) Comment: Performed By: #### CBC, ADIF F, ANEU, FIB, APTT, PRO, BMP, GFR ####[place] [address] Hematocrit (HCT) 37.6 40.0-52.0 % Low 02-17-2017 [facility] ([place]) ([address]80) Comment: Performed By: #### CBC, ADIF F, ANEU, FIB, APTT, PRO, BMP, GFR ####[place] [address] Hemoglobin mass conc 12.9 13.0-17.5 G/dL Low 7 [facility] (d) ([place]) (0000 0) Comment: Performed By: #### CBC, ADIF F, ANEU, FIB, APTT, PRO, BMP, GFR ####[place] [address] MCH 29.4 27.0-33.0 pg Normal 02-17-2017 [facility] ([place]) ([address]13) Comment: Performed By: #### CBC, ADIF F, ANEU, FIB, APTT, PRO, BMP, GFR ####[place] [address] MCHC mass conc (RBC) 34.2 32.0-36.0 G/dL Normal 7 [facility] ([place]) (0000 0) Comment: Performed By: #### CBC, ADIF F, ANEU, FIB, APTT, PRO, BMP, GFR ####[place] [address] MCV 85.9 81.0-100.0 fL Normal 02-17-2017 [facility] ([place]) (51042) Comment: Performed By: #### CBC, ADIF F, ANEU, FIB, APTT, PRO, BMP, GFR ####[place] [address] Platelet mean volume 8.0 6.4-10.5 fL Normal [address] [place] [address] (V) ([place]) (0000 0) Comment: Performed By: #### CBC, ADIF F, ANEU, FIB, APTT, PRO, BMP, GFR ####[place] [address] Platelets 164 150-450 10 3/mcL Normal 02-17-2017 [facility] ([place]) ([address]412) Comment: Performed By: #### CBC, ADIF F, ANEU, FIB, APTT, PRO, BMP, GFR ####[place] [address] WBC (Leukocytes) 6.10 4.50-10.80 10 3/mcL Normal 02-17-2017 A [facility] ([place]) (0000 0) Comment: Performed By: #### CBC, ADIF F, ANEU, FIB, APTT, PRO, BMP, GFR ####[place] [address] bmp on 2017-02-17 BUN/Creatinine Ratio 31.8 10.0-22.0 ratio High 7 [facility] ([place]) (0000 0) Comment: Performed By: #### CBC, ADIF F, ANEU, FIB, APTT, PRO, BMP, GFR ####[place] [address] Calcium 8.8 8.4-10.1 mg/dL Normal 02-17-2017 [facility]) (20371) Comment: Performed By: #### CBC, ADIF F, ANEU, FIB, APTT, PRO, BMP, GFR ####[place] [address] Chloride 109 98-110 mEq/L Normal 02-17-2017 [facility] ([place]) ([address]178) Comment: Performed By: #### CBC, ADIF F, ANEU, FIB, APTT, PRO, BMP, GFR ####[place] [address] CO2 27 22-32 mEq/L Normal 02-17-2017 [facility] ([place]) (89200) Comment: Performed By: #### CBC, ADIF F, ANEU, FIB, APTT, PRO, BMP, GFR ####[place] [address] Creatinine 1.10 0.60-1.40 mg/dL Normal 02-17-2017 [facility] ([place]) (90435) Comment: Performed By: #### CBC, ADIF F, ANEU, FIB, APTT, PRO, BMP, GFR ####[place] [address] Electrolyte Balance 7.0 4.0-15.0 mEq/L Normal 02-17-2017 [facility] ([place]) (0000 0) Comment: Performed By: #### CBC, ADIF F, ANEU, FIB, APTT, PRO, BMP, GFR ####[place] [address] Glucose mass conc 99 82-115 mg/dL Normal 02-17-2017 A [facility] ([place]) ([address]70) Comment: Performed By: #### CBC, ADIF F, ANEU, FIB, APTT, PRO, BMP, GFR ####[place] [address] Potassium molar conc 4.0 3.5-5.0 mEq/L Normal 7 [facility] ([place]) (0000 0) Comment: Performed By: #### CBC, ADIF F, ANEU, FIB, APTT, PRO, BMP, GFR ####[place] [address] Sodium 143 136-145 mEq/L Normal 02-17-2017 [facility] ([place]) (83670) Comment: Performed By: #### CBC, ADIF F, ANEU, FIB, APTT, PRO, BMP, GFR ####[place] [address] Urea nitrogen 35.0 8.0-22.0 mg/dL High 02-17-2017 [facility] ([place]) ([address]00) Comment: Performed By: #### CBC, ADIF F, ANEU, FIB, APTT, PRO, BMP, GFR ####[place] [address] aptt on 2017-02-17 aPTT 32.6 25.0-35.0 seconds Normal 02-17-2017 [facility] ([place]) (79282) Comment: Result Comment: For Heparin anticoagulation therapy, the recommendedtherapeutic range is: 54-77 seconds (APTT Correlationwith Anti-Xa therapeutic range of 0.3-0.7 units/ml).PLEASE REFERENCE THE PHARMACY PROTOCOL FOR DOSING. Performed By: #### CBC, ADIF F, ANEU, FIB, APTT, PRO, BMP, GFR ####[place] [address] aPTT Coumadin PO Normal 02-17-2017 [facility] ([place]) (09019) Comment: Performed By: #### CBC, ADIF F, ANEU, FIB, APTT, PRO, BMP, GFR ####[place] [address] .neuabs on Neutrophils 4.30 2.25-8.10 10 3/mcL Normal 02-17-2017 [facility] ([place]) (84731) Comment: Performed By: #### CBC, ADIF F, ANEU, FIB, APTT, PRO, BMP, GFR ####[place] [address] .gfr on 2017-02-17 eGFR (non-black) >60 mL/min/{1.73_m2} Normal 2016 [facility] ([place]) (0000 0) Comment: Result Comment: GFR Populati [...] F, ANEU, FIB, APTT, PRO, BMP, GFR ####[place] [address] .auto diff on 02-17 Basophils Auto #/vol 0.10 0.00-0.27 10 3/mcL Normal [address] [facility] ([facility]) [facility] ([place]) ([id number]) Comment: Performed By: #### CBC, ADIF F, ANEU, FIB, APTT, PRO, BMP, GFR ####[address] [address] Basophils/100 WBC Auto (Bld) 1.1 0.0-2.5 % Normal 1 04-19-2016 [facility] ([place]) (0000 0) Comment: Performed By: #### CBC, ADIF F, ANEU, FIB, APTT, PRO, BMP, GFR ####[address] [address] Eosinophils 0.20 0.00-0.65 10 3/mcL Normal 02-17-2017 [facility] ([place]) ([id number]) Comment: Performed By: #### CBC, ADIF F, ANEU, FIB, APTT, PRO, BMP, GFR ####[address] [address] Eosinophils/100 leukocytes 2.7 0.0-6.0 % Normal [facility] ([place]) (0000 0) Comment: Performed By: #### CBC, ADIF F, ANEU, FIB, APTT, PRO, BMP, GFR ####[address] [address] Lymphocytes 1.10 0.90-4.32 10 3/mcL Normal 02-17-2017 [facility] ([place]) ([id number]) Comment: Performed By: #### CBC, ADIF F, ANEU, FIB, APTT, PRO, BMP, GFR ####[address] [address] Lymphocytes/100 leukocytes 17.9 20.0-40.0 % Low [facility] ([place]) (0000 0) Comment: Performed By: #### CBC, ADIF F, ANEU, FIB, APTT, PRO, BMP, GFR ####[address] [address] Monocytes 0.50 0.09-1.40 10 3/mcL Normal 02-17-2017 [facility] ([place]) ([id number]) Comment: Performed By: #### CBC, ADIF F, ANEU, FIB, APTT, PRO, BMP, GFR ####[address] [address] Monocytes/100 leukocytes 8.5 2.0-13.0 % Normal 02-17 [facility] ([place]) (0000 0) Comment: Performed By: #### CBC, ADIF F, ANEU, FIB, APTT, PRO, BMP, GFR ####[facility] [place] [address] Neutrophils/100 WBC Auto 69.8 50.0-75.0 % Normal 02-[address] [facility] (d) [facility] ([place]) ([id number]) Comment: Performed By: #### CBC, ADIF F, ANEU, FIB, APTT, PRO, BMP, GFR ####[facility] [place] [id number] office visit: mmm o n 2017-01-01 Documentation of Done Invalid Interpretation 01-01-2017 - [facility] current medications Code 01-01-2017 Group ([id number]) (procedure) Fall risk assessment No Invalid Interpretat ion 01-01-2017 - [facility] Code 01-01-2017 Group (44 691) Protein mass conc Done Invalid Interpretation 01-01-2017 - [facility] Code 01-01-2017 Group (44 691) clinical lists update: preload on 2016-12-30 Left ventricular 35 % Invalid Interpretation 12-30-2016 - [facility] Ejection fraction Code 12-30-2016 N[facility] ([id number]) chart maintenance o n 2016-11-16 Anion gap 9 mmol/L Invalid 11-16-2016 - [facility] Interpretation Code 11-16-2016 Group ([id number]) Anion gap 4 molar 9 Invalid 11-16-2016 - [facility] conc Interpretation Code 11-16-2016 Group ([id number]) Anion gap molar 9 mmol/L 11-16-2016 - [place] conc 11-16-2016 [facility] ([id number] ) basophils as 0.5 % Invalid 11-16-2016 - [place] percent of blood Interpretation Code [facility] (554 [id number]) manual count Calcium mass conc 8.3 mg/dL Low 11-16-2016 - [place] 11-16-2016 [facility] [place], [employer] (41471 ) Chloride molar 105 mmol/L High 11-16-2016 - [place] conc 11-16-2016 Medical S ervice, [facility] (95403 ) Cholesterol in 30 mg/dL Low 11-16-2016 - [place] HDL mass conc 11-16-2016 Medic al Service, [facility] (40734 ) Cholesterol in 27 mg/dL Invalid 11-16-2016 - [place] LDL mass conc Interpretation Code 2016 [facility], [facility] ([id number] ) Cholesterol mass 124 mg/dL Invalid 11-16-2016 - [place] conc Interpretation Code 11-16-2016 Medical Service, [facility] ([id number] ) CO2 25.0 mmol/L Invalid 11-16-2016 - [facility] Interpretation Code 11-16-2016 Group ([id number]) CO2 ppres (BldV) 25.0 mmol/L Invalid 11-16-2016 - [place] Interpretation Code 11-16-2016 Medical Service, [facility] (91966 ) Creatinine mass 1.20 mg/dL Invalid 11-16-2016 - [place] conc Interpretation Code 11-16-2016 Medical [facility], [facility] (65234 ) eGFR (non-black) 77 mL/min/1.73 Invalid 11-16-2016 - [facility] m2 Interpretation Code 11-16-2016 Group ([id number]) eosinophils as 3.4 % Invalid 11-16-2016 - [place] percent of blood Interpretation Code Medical [facility], leukocytes, [facility] (442 91) manual count Erythrocyte 15.0 % High 11-16-2016 - [facility] distribution 11-16-2016 Group ([id number]) width Auto Ratio (RBC) Erythrocyte 15.0 % High 11-16-2016 - [place] distribution 11-16-2016 Medica l Service, width Ratio (RBC) LL C (02768) GFR/1.73 sq M 63 mL/min/1.73 Invalid 11-16-2016 - [place] predicted among m2 Interpretation Code 10-29 [facility], [facility]bl[facility] (52456) vol rate/area (S/P/Bld) Glomerular 77 mL/min/1.73 Invalid 11-16-2016 - [place] Filtration Rate m2 Interpretation Code 10-29 [facility] ([id number]) Glucose mass conc 287 mg/dL High 11-16-2016 - [place] 11-16-2016 [employer] (52246 ) Hematocrit Auto 33.2 % Low 11-16-2016 - [facility] Volume Fraction 11-16-2016 [facility] (59439) (Bld) Hematocrit Volume 33.2 % Low 11-16-2016 - [place] Fraction (Bld) 11-16-2016 [facility] [employer] (49755 ) Hemoglobin mass 11.4 g/dL Low 11-16-2016 - [place] conc (Bld) 11-16-2016 [employer] (10863 ) Lipoprotein.pre-b 67 mg/dL High 11-16-2016 - [place] eta mass conc 11-16-2016 [employer] [facility] [employer] (49388 ) Lymphocytes/100 26.6 % 11-16-2016 - [place] WBC (Bld) 11-16-2016 [employer] (60037 ) Lymphocytes/100 26.6 % Invalid 11-16-2016 - [place] [facility] WBC Auto (Bld) Interpretation Code 11-16 Group ([id number]) MCH Auto Entitic 29.9 pg Invalid 11-16-2016 - [facility] mass (RBC) Interpretation Code 7 Group (97838) MCH Entitic mass 29.9 pg 11-16-2016 - [place] (RBC) 11-16-2016 [employer] (83490 ) MCHC Auto mass 34.3 g/dL Invalid 11-16-2016 - [facility] conc (RBC) Interpretation Code 7 Group ([id number]) MCHC mass conc 34.3 g/dL 11-16-2016 - [place] (RBC) 11-16-2016 [employer] (54942 ) MCV Auto Entitic 87.1 fL Invalid 11-16-2016 - [facility] volume (RBC) Interpretation Code 017 Group (05523) MCV Entitic 87.1 fL 11-16-2016 - [place] volume (RBC) 11-16-2016 [employer] [facility] [employer] (89871 ) Monocytes/100 WBC 9.7 % 11-16-2016 - [place] (Bld) 11-16-2016 [employer] (24321 ) Monocytes/100 WBC 9.7 % Invalid 11-16-2016 - [facility] Auto (Bld) Interpretation Code 7 Group (36264) Platelet mean 9.9 fL 11-16-2016 - [place] volume Entitic 11-16-2016 [facility], volume (Bld) LLC (44 691) Platelet mean 9.9 fL Invalid 11-16-2016 - [facility] volume [facility] Interpretation Code Group ([id number]) Entitic volume (Bld) Platelets #/vol 157 10*3/mm3 11-16-2016 - [place] (Bld) 11-16-2016 [facility] (25231 ) Platelets Auto 157 10*3/mm3 Invalid 11-16-2016 - [facility] #/vol (Bld) Interpretation Code 11-17-19 17 Group ([id number]) Potassium molar 3.7 mmol/L Invalid 11-16-2016 - [place] conc Interpretation Code 11-16-[address] [facility] (80120 ) RBC #/vol (Bld) 3.81 10*6/uL Low 11-16-2016 - [place] 11-16-2016 [facility] (23270 ) RBC Auto #/vol 3.81 10*6/uL Low 11-16-2016 - [facility] (Bld) 11-16-2016 Group (44 641) Sodium molar conc 139 mmol/L Invalid 11-16-2016 - [place] Interpretation Code 11-16-[address] [facility] (28006 ) Triglyceride mass 336 mg/dL High 11-16-2016 - [place] conc 11-16-2016 [employer] [facility] (98527 ) Urea nitrogen 24 mg/dL High 11-16-2016 - [place] mass conc 11-16-2016 [employer] (04031 ) Urea 20.0 mg/mg Invalid 11-16-2016 [facility] nitrogen/Creatini Interpretation Code [facility] [employer] mass ratio [facility] (4 [id number]) very low density 67 mg/dL High 11-16-2016 - [facility] lipoproteins 11-16-2016 Group (92455) WBC #/vol (Bld) 4.4 10*9/L 11-16-2016 - [place] 11-16-2016 [facility] (35734 ) WBC Auto #/vol 4.4 10*9/L Invalid 11-16-2016 - [facility] (Bld) Interpretation Code 11-16-2016 Group (59375) chart maintenance o n 2016-11-15 INR Coag RelTime 2.5 {INR} Invalid 11-15-2016 [facility] (PPP) Interpretation Code 11-15-2016 [employer] (54743 ) Prothrombin time 25.7 s High 11-15-2016 [facility] (PT) Coag time 11-15-2016 [facility] ([facility] (56196 ) office visit on 10-03-07 Documentation of Done Invalid 09-04-2016 - [facility] current medications Interpretation Code 09-04-2016 Group (47847) (procedure) Fall risk assessment No Invalid Heart Interpretation Code 09-04-2016 Group ([id number]) Protein mass conc Done Invalid 09-04-2016 - [place] Interpretation Code 09-04-2016 [employer] (96568 ) clinical lists update: preload on 2016-09-03 Left ventricular 35 % Invalid Interpretation 09-03-2016 - [facility] Ejection fraction Code 09-03-2016 [facility] ([id number]) clinical lists update: preload on 2016-07-01 Anion gap 9 mmol/L Invalid 07-01-2016 - [place] Interpretation Code 07-01-2016 [facility] ([id number]) BUN/Creatinine 23.1 mg/mg High 07-01-2016 - [place] Ratio 07-01-2016 [facility] (49370) Calcium 8.7 mg/dL Invalid 07-01-2016 - [place] Interpretation Code 07-01-2016 [facility] (59533) Chloride 103 mmol/L Invalid 07-01-2016 - [facility] Interpretation Code 07-01-2016 [facility] (69574) CO2 28..0 Invalid 07-01-2016 - [place] Interpretation Code 07-01-2016 [facility] ([id number]) Creatinine 1.30 mg/dL Invalid 07-01-2016 - [place] Interpretation Code 07-01-2016 [facility] (65625) eGFR (non-black) 70 mL/min/1.73m Invalid 07-01-2016 - [place] 2 Interpretation Code 07-01-2016 [facility] (34747) eGFR (non-black) 58 mL/min/1.73m Low 07-01-2016 - [facility] 2 07-01-2016 [facility] (01361) Erythrocytes (RBC) 4.58 10*6/uL Low 07-01-2016 - [place] 07-01-2016 [facility] (35566) Glucose 195 mg/dL High 07-01-2016 - [facility] 07-01-2016 [facility] (48388) Hematocrit (HCT) 41.2 % Invalid 07-01-2016 - [facility] Interpretation Code 07-01-2016 [facility] ([id number]) Hemoglobin (HGB) 13.6 g/dL Invalid 07-01-2016 - [place] Interpretation Code 07-01-2016 [facility] (95646) MCH 29.7 pg Invalid 07-01-2016 - [place] Interpretation Code 07-01-2016 [facility] ([id number]) MCHC 33.0 g/dL Invalid 07-01-2016 - [place] Interpretation Code 07-01-2016 [facility] (40841) MCV 90.0 fL Invalid 07-01-2016 - [place] Interpretation Code 07-01-2016 [facility] ([id number]) Platelets 172 10*3/mm3 Invalid 07-01-2016 - [place] Interpretation Code 07-01-2016 [facility] ([id number]) PMV by Cindi 9.8 fL Invalid 07-01-2016 - [facility] Interpretation Code 07-01-2016 [facility] ([id number]) Potassium 3.8 mmol/L Invalid 07-01-2016 - [place] Interpretation Code 07-01-2016 [facility] (33531) RDW-CA 13.8 % Invalid 07-01-2016 - [place] Interpretation Code 07-01-2016 [facility] (99015) Sodium 140 mmol/L Invalid 07-01-2016 - [place] Interpretation Code 07-01-2016 [facility] ([id number]) Urea nitrogen 30 mg/dL High 07-01-2016 - [place] [facility] 07-01-2016 [facility] (47341) WBC (Leukocytes) 4.9 10*9/L Invalid 07-01-2016 - [place] Interpretation Code 07-01-2016 [facility] ([id number]) replaced document: midmark ecg observati ons on 2016-06-19 BUN (urea nitrogen) Sinus Rhythm Invalid 017 - [facility] -Frequent pvcs Interpretation 06-19-2016 Group ([id number]) -ventricular Code bigeminy -Right bundle branch block. - Inferior -lateral infarct (age undetermined). ABNORMAL EKG QRS axis -12 deg Invalid 06-19-2016 - [place] Interpretation 06-19-2016 Medi ana Code Service, L LC ([id number]) GE use only - for 428 ms Invalid 06-19-2016 - [facility] [employer] import Interpretation 06-20-19 17 Group ([id number]) when terms are not Code otherwise specified P [place] 40 deg Invalid 06-19-2016 - [place] Interpretation 06-19-2016 Medi ana Code Service, L LC ([id number]) P wave axis, 40 deg Invalid 06-19-2016 - [facility] electrocardiogram Interpretation 017 Group (07593) Code OR Interval 156 ms Invalid 06-19-2016 - [place] Interpretation 06-19-2016 Medi ana Code Service, L LC ([id number]) OR interval, 156 ms Invalid 06-19-2016 - [facility] electrocardiogram Interpretation 017 Group (60819) Code Pulse (Heart Rate) 81 BPM /min Invalid 06-19-2016 - [facility] Interpretation 06-19-2016 Grou p (76514) Code QRS axis, -12 deg Invalid 06-19-2016 - [facility] electrocardiogram Interpretation 017 Group ([id number]) Code QRS Duration 144 ms Invalid 06-19-2016 - [place] Interpretation 06-19-2016 Medi ana Code Service, L LC ([id number]) QRS duration, 144 ms Invalid 06-19-2016 - [facility] electrocardiogram Interpretation 017 Group (60181) Code QT Interval new path ms Invalid 06-19-2016 - [place] Interpretation 06-19-2016 Medi ana Code Service, L LC ([id number]) QT interval, new path ms Invalid 06-19-2016 - [facility] electrocardiogram Interpretation 017 Group ([id number]) Code QTc Hung 428 ms Invalid 06-19-2016 - [place] Interpretation 06-19-2016 Medi ana Code Service, L LC ([id number]) T [place] -1 deg Invalid 06-19-2016 - [place] Interpretation 06-19-2016 Medi ana Code Service, L LC ([id number]) T wave axis, -1 deg Invalid 06-19-2016 - [facility] electrocardiogram Interpretation 017 Group ([id number]) Code Urea nitrogen mass Sinus Rhythm 06-20-19 17 - [place] conc -Frequent pvcs 06-19-2016 [facility] ana -ventricular Service , [facility] bigeminy -Right (446 91) bundle branch block. - Inferior -lateral infarct (age undetermined). ABNORMAL office visit on 09-29-22 Documentation of Done Invalid Interpretation 06-19-2016 - [facility] current medications Code 06-19-2016 Group ([id number]) (procedure) Fall risk assessment No Invalid Interpretat ion 06-19-2016 - [facility] Code 06-19-2016 Group (37 211) lab report: magnesium on 2016-06-19 Magnesium 2.0 1.8-2.4 mg/dL Invalid Interpretation 017 - [facility] Code 06-19-2016 Group (44 701) lab report: basic metabolic profile (bmp ) on 2016-06-19 Anion gap 8 5-15 mmol/L Invalid 06-19-2016 - [facility] Interpretation 06-19-2016 Grou p ([id number]) Code BUN/Creatinine 20.4 10-20 High 06-19-2016 - [facility] Ratio RATIO 06-19-2016 Group (24 671) Calcium 9.1 8.5-10.1 mg/dL Invalid 06-19-2016 - [facility] Interpretation 06-19-2016 Grou p ([id number]) Code Chloride 103 98-107 mmol/L Invalid 06-19-2016 - [facility] Interpretation 06-19-2016 Grou p ([id number]) Code CO2 30.0 21.0-32. mmol/L Invalid 06-19-2016 - [facility] 0 Interpretation 06-19-2016 Grou p ([id number]) Code Creatinine 1.13 0.70-1.3 mg/dL Invalid 06-19-2016 - [place] [facility] 0 Interpretation 06-19-2016 Grou p ([id number]) Code eGFR 82 >60 mL/min Invalid 06-19-2016 - [facility] (non-black) Interpretation 06-19-2016 Gr oup (33881) Code eGFR 68 >60 mL/min Invalid 06-19-2016 - [facility] (non-black) Interpretation 06-19-2016 Gr oup ([id number]) Code EST GFR - AA 82 >60 mL/min Invalid 06-19-2016 - [place] Interpretation 06-19-2016 [facility] ana Code Service, L LC ([id number]) Glucose 93 70-110 mg/dL Invalid 06-19-2016 - [facility] Interpretation 06-19-2016 Grou p ([id number]) Code Potassium 3.9 3.5-5.1 mmol/L Invalid 06-19-2016 - [facility] Interpretation 06-19-2016 Grou p ([id number]) Code Sodium 141 136-145 mmol/L Invalid 06-19-2016 - [facility] Interpretation 06-19-2016 Grou p ([id number]) Code Urea nitrogen 23 7-18 mg/dL High 06-19-2016 - [facility] 06-19-2016 Group (44 301) clinical lists update: preload on 2016-05-31 Hematocrit (HCT) 36.8 % Low 05-31-2016 - [facility] 05-31-2016 Group (44 021) Hemoglobin (HGB) 11.9 g/dL Low 05-31-2016 - [facility] 05-31-2016 Group (44 331) Platelets 152 10*3/mm3 Invalid 05-31-2016 - [facility] Interpretation Code 05-31-2016 Group ([id number]) lab report: liver profile on 2016-05-21 Alanine 33 12-78 U/L Invalid 05-21-2016 - [facility] aminotransferase Interpretation 05-21-19 17 Group ([id number]) (ALT) Code Albumin 4.1 3.4-5.0 g/dL Invalid 05-21-2016 - [facility] Interpretation 05-21-2016 Grou p ([id number]) Code Alkaline phosphatase 60 45-117 U/L Invalid 7 - [facility] (ALP) Interpretation 05-21-2016 Grou p ([id number]) Code ALP enzyme act/vol 60 45-117 U/L Invalid 05-21-2016 - [place] (Bld) Interpretation 05-21-2016 Medi ana Code Service, L LC ([id number]) Aspartate 27 15-37 U/L Invalid 05-21-2016 - [facility] aminotransferase Interpretation 05-21-19 17 Group ([id number]) (AST) Code Bilirubin (direct) 0.06 0.00-0.30 mg/dL Invalid 05-21-2016 - [facility] Interpretation 05-21-2016 Grou p ([id number]) Code Bilirubin (total) 0.40 0.20-1.00 mg/dL Invalid 05-21-2016 - [facility] Interpretation 05-21-2016 Grou p ([id number]) Code Globulin 2.9 2.3-3.5 g/dL Invalid 05-21-2016 - [facility] Interpretation 05-21-2016 Grou p ([id number]) Code Globulin mass conc 2.9 2.3-3.5 g/dL 05-21-2016 - [place] (S) 05-21-2016 Medical Service, [place] ([id number]) Protein 7.0 6.4-8.2 g/dL Invalid 05-21-2016 - [facility] Interpretation 05-21-2016 Grou p ([id number]) Code lab report: lipid profile on 2016-05-21 Cholesterol 140 200 mg/dL Invalid 05-21-2016 - [facility] Interpretation Code 05-21-2016 Group ([id number]) HDL Cholesterol 40 mg/dL Invalid 05-21-2016 - [place] [facility] Interpretation Code 05-21-2016 Group ([id number]) LDL Cholesterol 68 0-130 mg/dL Invalid 05-21-2016 - [place] [facility] [facility] Interpretation Code 05-21-2016 Group ([id number]) Triglyceride 158 mg/dL Invalid 05-21-2016 - [facility] Interpretation Code 05-21-2016 Group ([id number]) very low density 32 5-40 mg/dL Invalid 05-21-2016 - [facility] lipoproteins Interpretation Code 017 Group ([id number]) office visit on 09-09-15 Dietary yes Invalid 03-14-2016 - [facility] management Interpretation Code 6 Group (54602) education, guidance, and counseling (procedure) Tobacco smoking Former Invalid 03-14-2016 - [place] status NHIS smoker Interpretation Code 03-14-20 Medical Service, [facility] ([id number] ) Tobacco use CPHS Former Invalid 03-14-2016 - [facility] smoker Interpretation Code 03-14-2016 Group ([id number]) lab report: prothrombin time w/inr on 2016-03-14 Coagulation 18.7 SECONDS 11.7-14.9 High 03-14-2016 - [place] tissue factor 03-14-2016 [facility] induced in ([id number]) platelet poor plasma INR in blood by 1.6 {INR Invalid 03-14-2016 - [place] coagulation } Interpretation 03-14-2016 He art Group Code ([id number]) lab report: prothrombin time fingerstick on 2016-02-15 Coagulation 12.9 SEC 11.9-14.4 Invalid 02-15-2016 - [place] tissue factor Interpretation Code 2015 [facility] induced in (08652) platelet poor plasma lab report: cbc-complete blood cnt no di ff on 2016-01-30 Erythrocyte 44.7 35.1-43.9 fL High 01-30-2016 - [facility] distribution 01-30-2016 Group ([id number]) width Auto Ratio (RBC) Erythrocyte 44.7 35.1-43.9 fL High 01-30-2016 - [place] distribution 01-30-2016 Medica l width [facility] (RBC) (03905) Erythrocytes 4.60 4.6-6.2 10*6/u Invalid 01-30-2016 - [facility] (RBC) L Interpretation 01-30-2016 Grou p ([id number]) Code MCH 29.8 27.0-32.0 pg Invalid 01-30-2016 - [facility] Interpretation 01-30-2016 Grou p ([id number]) Code MCHC 33.9 32-36 Invalid 01-30-2016 - [facility] G/GL Interpretation 01-30-2016 Grou p ([id number]) Code MCV 87.8 80-94 fL Invalid 01-30-2016 - [facility] Interpretation 01-30-2016 Grou p ([id number]) Code PMV by 9.8 6.2-12.0 fL Invalid 01-30-2016 - [facility] Interpretation 01-30-2016 [facility] (37462) Code RDW SD 44.7 35.1-43.9 fL High 01-30-2016 - [facility] 01-30-2016 Group (44 391) RDW-CA 14.0 11.6-14.6 % Invalid 01-30-2016 - [facility] Interpretation 01-30-2016 Grou p ([id number]) Code red blood cell 44.7 35.1-43.9 fL High 01-30-2016 - [facility] distribution 01-30-2016 Group ([id number]) width, size density WBC (Leukocytes) 5.5 4.4-11.0 10*9/L Invalid 01-30-2016 - [facility] Interpretation 01-30-2016 Grou p ([id number]) Code clinical lists update: preload on 2016-01-16 Left ventricular 35 % Invalid Interpretation 01-16-2016 - [facility] Ejection fraction Code 01-16-2016 G [facility] ([id number]) lab report: bedside glucose on 2014-12-15 Glucose 227 70-110 mg/dL High 12-15-2014 - [facility] 12-15-2014 ([id number]) Glucose mass conc 227 70-110 mg/dL High 12-15-2014 [facility] 12-15-2014 [employer] ([id number]) clinical lists update: preload on 2014-12-08 Cholesterol in 2.93 Invalid 12-08-2014 - [facility] LDL/Cholesterol in HDL Interpretation Co de 12-08-2014 [facility] [employer] (4479 1) Cholesterol to HDL 5.85 High 12-08-2014 - [facility] Ratio 12-08-2014 Group (44 691) HbA1c 7.1 % High 12-08-2014 - [facility] 12-08-2014 Group (44 691) LDL/HDL ratio, serum 2.93 Invalid 5 - [facility] Interpretation Code 12-08-2014 Group ([id number]) office visit on 07-10-15 cardiac risk group C Invalid Interpretatio n 03-14-2014 - [facility] Code 03-14-2014 Group (44 611) General cardiovascular N/A Invalid Interpret ation 03-14-2014 - [facility] disease 10Y risk [#] Code 4 Group (77544) [place] replaced document: midmark ecg observati ons on 2012-03-04 Pulse (Heart 430 ms Invalid Interpretation -0 - [facility] Rate) Code 03-04-2012 Group (44 541) clinical lists update: preload on 2011-03-15 [facility] 34.7 % Invalid Interpretation 011 - [facility] Group Code 03-15-2011 ([id number]) [facility] mass conc 34.7 % 03-15-2011 - [facility] (RBC) 03-15-2011 [employer] (07905) Vital Signs Vital Sign Description Value / Unit Date Location The following section is limited to 5 en tries per type and includes entries from the following time range: [id number] - 5. BMI (Body Mass Index) 38.16 kg/m2 01-01-2017 - 01-01-2017 [facility] ([id number]) BMI (Body Mass Index) 37.35 kg/m2 09-04-2016 - 09-04-2016 [facility] (67498) BMI (Body Mass Index) 36.94 kg/m2 06-19-2016 - 06-19-2016 [facility] (63460) BP Diastolic 80 mm[Hg] 01-01-2017 - 01-01-2017 [facility] ([id number]) BP Diastolic 50 mm[Hg] 09-04-2016 - 09-04-2016 [facility] ([id number]) BP Diastolic 70 mm[Hg] 06-19-2016 - 06-19-2016 [facility] (49387) BP Diastolic 90 mm[Hg] 03-29-2015 - 03-29-2015 [facility] ([id number]) BP Diastolic 96 mm[Hg] 03-29-2015 - 03-29-2015 [facility] ([id number]) BP Systolic 134 mm[Hg] 01-01-2017 - 01-01-2017 [facility] (44049) BP Systolic 90 mm[Hg] 09-04-2016 - 09-04-2016 [facility] ([id number]) BP Systolic 110 mm[Hg] 06-19-2016 - 06-19-2016 [facility] (36552) BP Systolic 122 mm[Hg] 03-29-2015 - 03-29-2015 [facility] ([id number]) BP Systolic 120 mm[Hg] 03-29-2015 - 03-29-2015 [facility] ([id number]) BSA (Body Surface Area) 2.21 m2 03-14-2016 - 03-14-2016 [facility] (52638) Heart rate 81 /min 06-19-2016 - 06-19-2016 [facility] (44 691) Heart rate 430 ms 03-04-2012 - 03-04-2012 [facility] (44 691) Height 172.72 cm 01-01-2017 - 01-01-2017 [facility] (50031) Height 172.72 cm 09-04-2016 - 09-04-2016 [facility] (34099) Height 172.72 cm 06-19-2016 - 06-19-2016 [facility] ([id number]) Pulse (Heart Rate) 64 /min 01-01-2017 - 01-01-2017 [facility] ([id number]) Pulse (Heart Rate) 64 /min 09-04-2016 - 09-04-2016 [facility] ([id number]) Pulse (Heart Rate) 80 /min 06-19-2016 - 06-19-2016 [facility] (49724) Respiratory Rate 20 /min 01-01-2017 - 01-01-2017 [facility] ([id number]) Respiratory Rate 20 /min 09-04-2016 - 09-04-2016 [facility] (52577) Respiratory Rate 20 /min 06-19-2016 - 06-19-2016 [facility] (29822) Weight 113.85 kg 01-01-2017 - 01-01-2017 [facility] (70677) Weight 111.45 kg 09-04-2016 - 09-04-2016 [facility] (52951) Weight 110.22 kg 06-19-2016 - 06-19-2016 [facility] ([id number]) Encounters Date Type Reason Provider Location 02-17-2017 - Ambulatory [facility]I ESTAFANOUS Facility:A 02-17-2017 12-13-2019 - Chart abstracting Morgan langley [place] 12-13-2019 Comment: Outside Lab Results (CBC, BM P) 01-07-2020 - 01-07-2020 Patient encounter [facility] procedure [place] Comment: Non-Urgent Medical Question 12-18-2019 - 12-18-2019 [...] [facility] ion 11-10-2019 - Patient encounter External [facility] 11-10-2019 procedure Provider 01-06-2020 - Refill Type 2 diabetes Morgan Mooney [facility] cine 01-06-2020 mellitus [place] Comment: Refill Request 12-07-2019 - 12-07-2019 Refill Type 2 diabetes [facility] mellitus [place] Comment: Refill Request 12-06-2019 Results Only [facility] 11-23-2019 Results Only [facility] 11-10-2019 - Results Only External Provider External-N [facility] 11-10-2019 12-27-2019 - Telephone encounter Morgan Mooney [facility] 12-27-2019 [place] Comment: Patient Question 12-20-2019 - Telephone Paroxysmal atrial [facility] A mbulatory 12-20-2019 encounter fibrillation (Pharmacist) Telemanagement Comment: Anticoagulation Telephone Fu (Home INR result) 12-08-2019 - 12-08-2019 Telephone encounter Morgan Mooney [facility] [place] Comment: [facility] OT POC 12-06-2019 - Telephone Paroxysmal atrial [...] Location BMP - EXTERNAL 12-09-2019 [facility] Provider [facility] ([id number]) CBCDIF (EXTERNAL) 12-09-2019 [facility] Provider [facility] ([id number]) INR Coag (PPP) [Relative 12-06-2019 Pharmacist Home Inr [facility] time] ([id number]) INR Coag (PPP) [Relative 11-23-2019 Pharmacist Home Inr [facility] time] ([id number]) EXTERNAL CARDIOLOGY 11-10-2019 External Provider [facility] ([id number]) EXTERNAL IMAGING 11-10-2019 External Provider [facility] ([id number]) Colonoscopy 01-06-2018 - [facility] 01-06-2018 ([id number]) Prgrmng dev eval 01-30-2017 - MD [facility] implantable in persn 1 ld 02-02-2017 ([id number] ) dfb Follow Up Appt 3 months 10-30-2016 - MD [facility] 12-17-2016 ([id number]) Pacer Clinic 10-30-2016 - MD [facility] 12-17-2016 ([id number]) Prgrmng dev eval 10-30-2016 - MD [facility] implantable in persn 1 ld 10-30-2016 ([id number] ) dfb Icd device prog eval, 1 10-30-2016 - MD [facility] sngl 10-30-2016 ([id number]) Follow Up Appt 3 months 09-04-2016 - MD [facility] 12-17-2016 ([id number]) MMM 09-04-2016 - MD [facility] 12-17-2016 ([id number]) Follow Up Appt 3 months 07-30-2016 - MD Mxaim [facility] 11-17-2016 ([id number]) Pacer Clinic 07-30-2016 - MD [facility] 11-17-2016 ([id number]) Prgrmng dev eval 07-30-2016 - MD [facility] implantable in persn 1 ld 07-30-2016 ([id number] ) dfb Icd device prog eval, 1 07-30-2016 - MD [facility] sngl 11-17-2016 ([id number]) Pacer Clinic 07-30-2016 - MD Darlyn Rogers [facility] 11-17-2016 [employer] ([id number]) *BMP 06-19-2016 - MD [facility] 06-19-2016 ([id number]) ENERGY PROFESSIONAL 06-19-2016 - MD [facility] 06-19-2016 ([id number]) Follow Up Appt 3 months 06-19-2016 - MD [facility] 11-17-2016 ([id number]) Magnesium [Mass/volume] in 06-19-2016 - MD [facility] Serum or Plasma 06-19-2016 ([id number]) Pacer Clinic 06-19-2016 - MD [facility] 11-17-2016 ([id number]) Prgrmng dev eval 06-19-2016 - MD [facility] implantable in persn 1 ld 06-23-2016 ([id number] ) dfb Referral to trust officer 06-19-2016 - MD [facility] 06-20-2016 ([id number]) *BMP 06-19-2016 - MD [facility] 06-19-2016 ([id number]) ENERGY PROFESSIONAL 06-19-2016 - MD [facility] 06-19-2016 ([id number]) Follow Up Appt 3 months 06-19-2016 - MD [facility] 11-17-2016 ([id number]) Icd device prog eval, 1 06-19-2016 - MD [facility] sngl 06-23-2016 ([id number]) Magnesium 06-19-2016 - MD [facility] 06-19-2016 ([id number]) Pacer Clinic 06-19-2016 - MD Darlyn [facility] 11-17-2016 [employer] ([phone]) Referral to trust officer 06-19-2016 - Johan Perry MD [facility] 06-20-2016 [employer] ([phone]) *Hepatic Function Panel 05-21-2016 - MD [facility] 05-21-2016 ([id number]) Lipid 1996 panel - Serum or 05-21-2016 - MD Pauline [facility] Plasma 05-21-2016 ([id number]) *Hepatic Function Panel 05-21-2016 - MD [facility] 05-21-2016 ([id number]) Lipid panel [AGGREGATE] 05-21-2016 - MD [facility] 05-21-2016 ([id number]) Follow Up Appt 3 months 04-30-2016 - MD [facility] 11-17-2016 ([id number]) Pacer Clinic 04-30-2016 - MD [facility] 11-17-2016 ([id number]) Prgrmng dev eval 04-30-2016 - MD [facility] implantable in persn 1 ld 11-17-2016 ([id number] ) dfb Icd device prog eval, 1 04-30-2016 - MD [facility] sngl 11-17-2016 ([id number]) Pacer Clinic 04-30-2016 - MD Darlyn Rogers Me dical 11-17-2016 [employer] ([phone]) Carotid duplex 03-14-2016 - MD [facility] 04-01-2016 ([id number]) Follow Up Appt 3 months 03-14-2016 - MD [facility] 03-14-2016 ([id number]) INR in Platelet poor plasma 03-14-2016 - MD Pauline [facility] by Coagulation assay 03-14-2016 ([id number]) MMM 03-14-2016 - MD [facility] 03-14-2016 ([id number]) Dietary management 03-14-2016 - Darlyn galaviz education, guidance, and 03-14-2016 [employer] ([id number]) counseling Carotid duplex 03-14-2016 - MD [facility] 04-01-2016 ([id number]) Coagulation factor 03-14-2016 - MD [facility] induced.INR assay in 03-14-2016 ([id number]) platelet poor plasma Follow Up Appt 3 months 03-14-2016 - MD [facility] 03-14-2016 ([id number]) MMM 03-14-2016 - MD [facility] 03-14-2016 ([id number]) *BMP 01-30-2016 - MD [facility] 01-30-2016 ([id number]) CBC W Auto Differential 01-30-2016 - MD [facility] panel - Blood 01-30-2016 ([id number]) Chest x-ray 01-30-2016 - MD [facility] 02-08-2016 ([id number]) Ecg routine ecg w/least 12 01-30-2016 - MD Jose [facility] lds w/i&r 01-30-2016 ([id number]) Follow Up Appt 6 weeks 01-30-2016 - MD [facility] 01-30-2016 ([id number]) INR in Platelet poor plasma 01-30-2016 - MD Pauline [facility] by Coagulation assay 01-30-2016 ([id number]) Left Heart Cath 01-30-2016 - MD [facility] 05-21-2016 ([id number]) MMM 01-30-2016 - MD [facility] 01-30-2016 ([id number]) Us abdominal real time 01-30-2016 - MD [facility] w/image limited 02-08-2016 ([id number]) *BMP 01-30-2016 - MD [facility] 01-30-2016 ([id number]) CBC W Auto Differential 01-30-2016 - MD [facility] panel - Blood 01-30-2016 ([id number]) Chest x-ray 01-30-2016 - MD [facility] 02-08-2016 ([id number]) Coagulation factor 01-30-2016 - MD [facility] induced.INR assay in 01-30-2016 ([id number]) platelet poor plasma Echo exam of abdomen 01-30-2016 - MD [facility] 02-08-2016 ([id number]) Electrocardiogram, complete 01-30-2016 - MD [facility] 01-30-2016 ([id number]) Follow Up Appt 6 weeks 01-30-2016 - MD [facility] 01-30-2016 ([id number]) Left Heart Cath 01-30-2016 - MD [facility] 05-21-2016 ([id number]) MMM 01-30-2016 - MD [facility] 01-30-2016 ([id number]) Follow Up Appt 3 months 01-23-2016 - [facility] 11-17-2016 PA-C ([id number]) Pacer Clinic 01-23-2016 - [facility] 11-17-2016 PA-C ([id number]) Prgrmng dev eval 01-23-2016 - [facility] implantable in persn 1 ld 01-23-2016 PA-C ([id number] ) dfb Chest x-ray 01-23-2016 - Melany Khanna [facility] 11-17-2016 PA-C Service, [employer] ([phone]) Ecg routine ecg w/least 12 01-23-2016 - Melany Khanna [facility] w/i&r 11-17-2016 PA-C Service, [employer] ([phone]) Icd device prog eval, 1 01-23-2016 - Pauline [facility] sngl 01-23-2016 PA-C ([id number]) *Hepatic Function Panel 11-05-2015 - MD Pauline [facility] 11-20-2015 ([id number]) Lipid 1996 panel - Serum or 11-05-2015 - Johan Perry MD [facility] Plasma 11-20-2015 ([id number]) *Hepatic Function Panel 11-05-2015 - MD [facility] 11-20-2015 ([id number]) Lipid panel [AGGREGATE] 11-05-2015 - MD [facility] 11-20-2015 ([id number]) Follow Up Appt 3 months 10-18-2015 - Jorge [facility] 02-08-2016 ([id number]) Pacer Clinic 10-18-2015 - [facility] 02-08-2016 ([id number]) Prgrmng dev eval 10-18-2015 - [facility] implantable in persn 1 ld 10-18-2015 ([id number] ) dfb Follow Up Appt 3 months 10-18-2015 - [facility] 02-08-2016 ([id number]) Icd device prog eval, 1 10-18-2015 - [facility] sngl 10-18-2015 ([id number]) Pacer Clinic 10-18-2015 - [facility] 02-08-2016 ([id number]) Follow Up Appt 3 months 07-18-2015 - MD [facility] 02-08-2016 ([id number]) Pacer Clinic 07-18-2015 - MD Paul[facility] 02-08-2016 ([id number]) Prgrmng dev eval 07-18-2015 - MD [facility] implantable in persn 1 ld 07-18-2015 ([id number] ) dfb Follow Up Appt 3 months 07-18-2015 - MD [facility] 02-08-2016 ([id number]) Icd device prog eval, 1 07-18-2015 - MD [facility] sngl 02-08-2016 ([id number]) Pacer Clinic 07-18-2015 - MD [facility] 02-08-2016 ([id number]) ENERGY PROFESSIONAL 07-03-2015 - MD Paul[facility] 07-03-2015 ([id number]) Follow Up Appt 6 months 07-03-2015 - MD [facility] 07-03-2015 ([id number]) ENERGY PROFESSIONAL 07-03-2015 - Johan Perry MD [place] [facility] 07-03-2015 ([id number]) Follow Up Appt 6 months 07-03-2015 - MD [facility] 07-03-2015 ([id number]) *Hepatic Function Panel 06-20-2015 - Melany Khanna [facility] 06-20-2015 PA-C ([id number]) Lipid 1996 panel - Serum or 06-20-2015 - Melany Khanna [facility] Plasma 06-20-2015 PA-C ([id number]) *Hepatic Function Panel 06-20-2015 - Melany Khanna [facility] 06-20-2015 PA-C ([id number]) Lipid panel [AGGREGATE] 06-20-2015 - Melany Khanna [facility] 06-20-2015 PA-C ([id number]) Follow Up Appt 3 months 04-13-2015 - MD [facility] 02-08-2016 ([id number]) Pacer Clinic 04-13-2015 - Johan Perry MD [facility] 02-08-2016 ([id number]) Prgrmng dev eval 04-13-2015 - MD Paul[facility] implantable in persn 1 ld 04-14-2015 ([id number] ) dfb Follow Up Appt 3 months 04-13-2015 - MD [facility] 02-08-2016 ([id number]) Icd device prog eval, 1 04-13-2015 - MD [facility] sngl 04-14-2015 ([id number]) Pacer Clinic 04-13-2015 - MD [facility] 02-08-2016 ([id number]) Us abdominal real time 04-11-2015 - MD [facility] w/image limited 04-12-2015 ([id number]) Echo exam of abdomen 04-11-2015 - MD [facility] 04-12-2015 ([id number]) External Counterpulsation 04-06-2015 - [facility] Therapy 11-17-2016 PA-C ([id number]) Prgrmng dev eval 04-06-2015 - Juan Timmons [facility] implantable in persn 1 ld 11-17-2016 PA-C [place] ([id number]) dfb ENERGY PROFESSIONAL 03-29-2015 - [facility] 03-29-2015 PA-C ([id number]) Follow Up Appt 3 months 03-29-2015 - Melany Khanna [facility] 03-29-2015 PA-C ([id number]) ENERGY PROFESSIONAL 03-29-2015 - Melany Khanna [facility] 03-29-2015 PA-C ([id number]) Follow Up Appt 3 months 03-29-2015 - Melany Khanna [facility] 03-29-2015 PA-C ([id number]) Follow Up Appt 3 months 01-05-2015 - Melany Khanna [facility] 03-05-2015 PA-C ([id number]) Pacer Clinic 01-05-2015 - [facility] 03-05-2015 PA-C ([id number]) Prgrmng dev eval 01-05-2015 - [facility] Timmons [facility] implantable in persn 1 ld 01-08-2015 PA-C ([id number] ) dfb Follow Up Appt 3 months 01-05-2015 - Melany Khanna [facility] 03-05-2015 PA-C ([id number]) Icd device prog eval, 1 01-05-2015 - Melany Khanna, [facility] sngl 01-08-2015 PA-C ([id number]) Pacer Clinic 01-05-2015 - Melany Khanna, [facility] 03-05-2015 PA-C ([id number]) Cardiac Rehab 12-27-2014 - MD [facility] 03-05-2015 ([id number]) Documentation of current 12-27-2014 - MD Tommy [facility] medications 12-28-2014 ([id number]) Follow Up Appt 3 months 12-27-2014 - MD Maxim [facility] 12-27-2014 ([id number]) MMM 12-27-2014 - MD [facility] 12-27-2014 ([id number]) Pedal pulse taking 12-27-2014 - MD [place] [facility] 12-28-2014 ([id number]) Cardiac Rehab 12-27-2014 - MD Paul[facility] 03-05-2015 ([id number]) Documentation of current 12-27-2014 - Johan Perry MD [facility] medications 12-28-2014 ([id number]) Follow Up Appt 3 months 12-27-2014 - MD Maxim [facility] 12-27-2014 ([id number]) MMM 12-27-2014 - Johan Perry MD [facility] 12-27-2014 ([id number]) Pedal pulse taking 12-27-2014 - MD [place] 12-28-2014 ([id number]) Follow Up BP Check 12-11-2014 - Melany Khanna [place] [facility] 12-11-2014 PA-C ([id number]) Left Heart Cath 12-11-2014 - MD [facility] 03-05-2015 ([id number]) Follow Up BP Check 12-11-2014 - Melany Khanna [place] [facility] 12-11-2014 PA-C ([id number]) Left Heart Cath 12-11-2014 - MD [facility] 03-05-2015 ([id number]) *BMP 12-06-2014 - [facility] 12-06-2014 PA-C ([id number]) Documentation of current 12-06-2014 - Melany Khanna [facility] medications 12-07-2014 PA-C ([id number]) Follow Up Appt Other 12-06-2014 - Melany Khanna [facility] 12-06-2014 PA-C ([id number]) *BMP 12-06-2014 - [facility] 12-06-2014 PA-C ([id number]) Documentation of current 12-06-2014 - Alejandro Timmons [facility] medications 12-07-2014 PA-C ([id number]) Follow Up Appt Other 12-06-2014 - Melany Khanna [facility] 12-06-2014 PA-C ([id number]) Lipid 1996 panel - Serum or 11-28-2014 - Melany Khanna [place] [facility] Plasma 12-21-2014 PA-C ([id number]) Lipid panel [AGGREGATE] 11-28-2014 - Melany Khanna [facility] 12-21-2014 PA-C ([id number]) Documentation of current 11-03-2014 - Johan Perry MD [facility] medications 11-04-2014 ([id number]) Follow Up Appt 6 months 11-03-2014 - MD [facility] 11-03-2014 ([id number]) MMM 11-03-2014 - MD [facility] 11-03-2014 ([id number]) Pedal pulse taking 11-03-2014 - MD [place] [facility] 11-04-2014 ([id number]) Preoperative cardiovascular 11-03-2014 - [facility] examination 12-25-2014 ([id number]) Documentation of current 11-03-2014 - Johan Perry MD [facility] medications 11-04-2014 ([id number]) Follow Up Appt 6 months 11-03-2014 - MD [facility] 11-03-2014 ([id number]) MMM 11-03-2014 - MD [facility] 11-03-2014 ([id number]) Pedal pulse taking 11-03-2014 - MD [place] [facility] 11-04-2014 ([id number]) Preoperative cardiovascular 11-03-2014 - [place] [facility] examination 12-25-2014 [employer] ([id number]) [facility] 09-27-2014 - [facility] 09-27-2014 PA-C ([id number]) Documentation of current 09-27-2014 - Alejandro Timmons [facility] medications 09-28-2014 PA-C ([id number]) Ecg routine ecg w/least 12 09-27-2014 - [facility] lds w/i&r 11-03-2014 PA-C Johan Perry MD ([id number]) Follow Up Appt 3 months 09-27-2014 - MD [facility] 11-03-2014 ([id number]) Follow Up Appt 6 months 09-27-2014 - Pauline Timmons [facility] 09-27-2014 PA-C ([id number]) Pacer Clinic 09-27-2014 - MD [facility] 11-03-2014 ([id number]) Pedal pulse taking 09-27-2014 - Melany Khanna [place] [facility] 09-28-2014 PA-C ([id number]) Prgrmng dev eval 09-27-2014 - Johan Perry MD [place] [facility] implantable in persn 1 ld 09-28-2014 ([id number] ) dfb ENERGY PROFESSIONAL 09-27-2014 - [facility] 09-27-2014 PA-C ([id number]) Documentation of current 09-27-2014 - Alejandro Timmons [facility] medications 09-28-2014 PA-C ([id number]) Follow Up Appt 3 months 09-27-2014 - Johan Perry MD [facility] 11-03-2014 ([id number]) Follow Up Appt 6 months 09-27-2014 - Melany Khanna [facility] 09-27-2014 PA-C ([id number]) Icd device prog eval, 1 09-27-2014 - Johan Perry MD [facility] sngl 09-28-2014 ([id number]) Pacer Clinic 09-27-2014 - Johan Perry MD [facility] 11-03-2014 ([id number]) Pedal pulse taking 09-27-2014 - Melany Khanna [facility] 09-28-2014 PA-C ([id number]) Pulse (Heart Rate) 09-27-2014 - Melany Khanna [facility] 11-03-2014 PA-C Johan Perry MD ([id number]) *Hepatic Function Panel 07-28-2014 - Johan Perry MD [facility] 08-25-2014 ([id number]) Lipid 1996 panel - Serum or 07-28-2014 - Johan Perry MD [facility] Plasma 08-25-2014 ([id number]) *Hepatic Function Panel 07-28-2014 - Johan Perry MD [facility] 08-25-2014 ([id number]) Lipid panel [AGGREGATE] 07-28-2014 - Johan Perry MD [facility] 08-25-2014 ([id number]) Follow Up Appt 3 months 06-12-2014 - Melany Khanna [facility] 09-15-2014 PA-C ([id number]) Pacer Clinic 06-12-2014 - [facility] 09-15-2014 PA-C ([id number]) Prgrmng dev eval 06-12-2014 - [facility] implantable in persn 1 ld 06-13-2014 PA-C ([id number] ) dfb Follow Up Appt 3 months 06-12-2014 - Melany Khanna [facility] 09-15-2014 PA-C ([id number]) Icd device prog eval, 1 06-12-2014 - Melany Khanna [facility] sngl 06-13-2014 PA-C ([id number]) Pacer Clinic 06-12-2014 - [facility] 09-15-2014 PA-C ([id number]) Follow Up Appt 3 months 03-14-2014 - Johan Perry MD [facility] 09-15-2014 ([id number]) Follow Up Appt 6 months 03-14-2014 - MD Maxim [facility] 03-14-2014 ([id number]) [facility] 03-14-2014 - Johan Perry MD [place] [facility] 03-14-2014 ([id number]) Pacer Clinic 03-14-2014 - MD [facility] 09-15-2014 ([id number]) Prgrmng dev eval 03-14-2014 - Johan Perry MD [place] [facility] implantable in persn 1 ld 03-14-2014 ([id number] ) dfb Follow Up Appt 3 months 03-14-2014 - Johan Perry MD [facility] 09-15-2014 ([id number]) Follow Up Appt 6 months 03-14-2014 - MD Maxim [facility] 03-14-2014 ([id number]) Icd device prog eval, 1 03-14-2014 - Johan Perry MD [facility] sn 03-14-2014 ([id number]) [facility] 03-14-2014 - Johan Perry MD [place] [facility] 03-14-2014 ([id number]) Pacer Clinic 03-14-2014 - Johan Perry MD [facility] 09-15-2014 ([id number]) *Hepatic Function Panel 01-28-2014 - MD [facility] 02-06-2014 ([id number]) Lipid 1996 panel - Serum or 01-28-2014 - Johan Perry MD [facility] Plasma 02-06-2014 ([id number]) *Hepatic Function Panel 01-28-2014 - MD [facility] 02-06-2014 ([id number]) Lipid panel [AGGREGATE] 01-28-2014 - MD [facility] 02-06-2014 ([id number]) Follow Up Appt 2 months 12-16-2013 - MD [facility] 09-15-2014 ([id number]) Pacer Clinic 12-16-2013 - Johan Perry MD [place] [facility] 09-15-2014 ([id number]) Prgrmng dev eval 12-16-2013 - MD [facility] implantable in persn 1 ld 09-15-2014 ([id number] ) dfb Follow Up Appt 2 months 12-16-2013 - MD [facility] 09-15-2014 ([id number]) Icd device prog eval, 1 12-16-2013 - MD [facility] sngl 09-15-2014 ([id number]) Pacer Clinic 12-16-2013 - Johan Perry MD [facility] 09-15-2014 ([id number]) Follow Up Appt 3 months 09-15-2013 - MD [facility] 09-15-2014 ([id number]) Pacer Clinic 09-15-2013 - Johan Perry MD [facility] 09-15-2014 ([id number]) Prgrmg eval implantable in 09-15-2013 - MD [facility] prsn dual lead dfb 09-15-2013 ([id number]) Follow Up Appt 3 months 09-15-2013 - MD [facility] 09-15-2014 ([id number]) Icd device progr eval, dual 09-15-2013 - Johna Perry MD [facility] 09-15-2013 ([id number]) Pacer Clinic 09-15-2013 - MD [facility] 09-15-2014 ([id number]) ENERGY PROFESSIONAL 09-06-2013 - Melany Khanna [facility] 09-06-2013 PA-C ([id number]) Follow Up Appt 6 months 09-06-2013 - Melany Khanna [facility] 09-06-2013 PA-C ([id number]) ENERGY PROFESSIONAL 09-06-2013 - Melany [facility]anna[facility] 09-06-2013 PA-C ([id number]) Follow Up Appt 6 months 09-06-2013 - Melany Khanna [facility] 09-06-2013 PA-C ([id number]) *Hepatic Function Panel 07-28-2013 - MD [facility] 08-09-2013 ([id number]) Lipid 1996 panel - Serum or 07-28-2013 - Johan Perry MD [facility] Plasma 08-09-2013 ([id number]) *Hepatic Function Panel 07-28-2013 - MD [facility] 08-09-2013 ([id number]) Lipid panel [AGGREGATE] 07-28-2013 - MD [facility] 08-09-2013 ([id number]) Follow Up Appt 3 months 06-08-2013 - MD [facility] 08-25-2013 ([id number]) Pacer Clinic 06-08-2013 - MD [facility] 08-25-2013 ([id number]) Prgrmng dev eval 06-08-2013 - MD [facility] implantable in persn 1 ld 06-08-2013 ([id number] ) dfb Follow Up Appt 3 months 06-08-2013 - MD [facility] 08-25-2013 ([id number]) Icd device prog eval, 1 06-08-2013 - MD [facility] sngl 06-08-2013 ([id number]) Pacer Clinic 06-08-2013 - MD [facility] 08-25-2013 ([id number]) Follow Up Appt 3 months 03-09-2013 - MD [facility] 05-17-2013 ([id number]) Pacer Clinic 03-09-2013 - MD [facility] 05-17-2013 ([id number]) Prgrmng dev eval 03-09-2013 - MD [facility] implantable in persn 1 ld 03-09-2013 ([id number] ) dfb Follow Up Appt 3 months 03-09-2013 - MD [facility] 05-17-2013 ([id number]) Pacer Clinic 03-09-2013 - MD [facility] 05-17-2013 ([id number]) Ecg routine ecg w/least 12 03-08-2013 - MD [facility] lds w/i&r 05-17-2013 ([id number]) Follow Up Appt 6 months 03-08-2013 - MD Maxim [facility] 05-17-2013 ([id number]) Icd device prog eval, 1 03-08-2013 - MD Maxim [facility] sngl 05-17-2013 ([id number]) MMM 03-08-2013 - MD [facility] 05-17-2013 ([id number]) Electrocardiogram, complete 03-08-2013 - MD [facility] 05-17-2013 ([id number]) Follow Up Appt 6 months 03-08-2013 - MD [facility] 05-17-2013 ([id number]) MMM 03-08-2013 - MD [facility] 05-17-2013 ([id number]) *Hepatic Function Panel 01-28-2013 - MD [facility] 02-04-2013 ([id number]) Lipid 1996 panel - Serum or 01-28-2013 - MD [facility] Plasma 02-04-2013 ([id number]) *Hepatic Function Panel 01-28-2013 - MD [facility] 02-04-2013 ([id number]) Lipid panel [AGGREGATE] 01-28-2013 - MD Maxim [facility] 02-04-2013 ([id number]) Follow Up Appt 3 months 12-08-2012 - MD [facility] 05-17-2013 ([id number]) Pacer Clinic 12-08-2012 - MD [facility] 05-17-2013 ([id number]) Prgrmng dev eval 12-08-2012 - MD [facility] implantable in persn 1 ld 12-08-2012 ([id number] ) dfb Follow Up Appt 3 months 12-08-2012 - MD Maxim [facility] 05-17-2013 ([id number]) Icd device prog eval, 1 12-08-2012 - MD [facility] sngl 12-08-2012 ([id number]) Pacer Clinic 12-08-2012 - MD [facility] 05-17-2013 ([id number]) Follow Up Appt 6 months 11-25-2012 - MD [facility] 11-25-2012 ([id number]) [facility] 11-25-2012 - Johan Perry MD [facility] 11-25-2012 ([id number]) Follow Up Appt 6 months 11-25-2012 - MD [facility] 11-25-2012 ([id number]) [facility] 11-25-2012 - Johan Perry MD [place] [facility] 11-25-2012 ([id number]) Follow Up Appt 3 months 09-03-2012 - MD [facility] 05-17-2013 ([id number]) Pacer Clinic 09-03-2012 - MD [facility] 05-17-2013 ([id number]) Prgrmng dev eval 09-03-2012 - MD [facility] implantable in persn 1 ld 09-03-2012 ([id number] ) dfb Follow Up Appt 3 months 09-03-2012 - MD [facility] 05-17-2013 ([id number]) Icd device prog eval, 1 09-03-2012 - Johan Perry MD [facility] sngl 09-03-2012 ([id number]) Pacer Clinic 09-03-2012 - Johan Perry MD [facility] 05-17-2013 ([id number]) *BMP 09-01-2012 - Rahul W [place] [facility] 05-17-2013 Héctor SIMMONS ([id number]) *Hepatic Function Panel 09-01-2012 - Rahul W [place] [facility] 05-17-2013 Héctor SIMMONS ([id number]) Lipid 1996 panel - Serum or 09-01-2012 - [facility] Plasma 05-17-2013 Héctor SIMMONS ([id number]) Magnesium [Mass/volume] in 09-01-2012 - [facility] Serum or Plasma 05-17-2013 Héctor SIMMONS ([id number]) *BMP 09-01-2012 - [facility] 05-17-2013 Héctor SIMMONS ([id number]) *Hepatic Function Panel 09-01-2012 - [facility] 05-17-2013 Héctor SIMMONS ([id number]) Lipid panel [AGGREGATE] 09-01-2012 - [facility] 05-17-2013 Héctor SIMMONS ([id number]) Magnesium 09-01-2012 - [facility] 05-17-2013 Héctor SIMMONS ([id number]) Follow Up Appt 6 months 03-04-2012 - [facility] 03-04-2012 Héctor SIMMONS ([id number]) Follow Up Appt 6 months 03-04-2012 - [facility] 03-04-2012 Héctor SIMMONS ([id number]) *Hepatic Function Panel 02-04-2012 - [facility] 02-11-2012 Héctor SIMMONS ([id number]) Lipid 1996 panel - Serum or 02-04-2012 - [facility] Plasma 02-11-2012 Héctor SIMMONS ([id number]) *Hepatic Function Panel 02-04-2012 - [facility] 02-11-2012 Héctor SIMMONS ([id number]) Lipid panel [AGGREGATE] 02-04-2012 - [facility] 02-11-2012 Héctor SIMMONS ([id number]) Follow Up Appt 4 months 11-24-2011 - [facility] 11-24-2011 Héctor SIMMONS ([id number]) Follow Up Appt 4 months 11-24-2011 - [facility] 11-24-2011 Héctor SIMMONS ([id number]) *Hepatic Function Panel 10-27-2011 - [facility] 10-27-2011 Héctor SIMMONS ([id number]) Lipid 1996 panel - Serum or 10-27-2011 - [facility] Plasma 10-27-2011 Héctor SIMMONS ([id number]) *Hepatic Function Panel 10-27-2011 - [facility] 10-27-2011 Héctor SIMMONS ([id number]) Lipid panel [AGGREGATE] 10-27-2011 - [facility] 10-27-2011 Héctor SIMMONS ([id number]) *BMP 10-16-2011 - [facility] 10-27-2011 Héctor SIMMONS ([id number]) *BMP 10-16-2011 - [facility] 10-27-2011 Héctor SIMMONS ([id number]) Ecg routine ecg w/least 08-26-2011 - [facility] lds w/i&r 08-26-2011 Héctor SIMMONS ([id number]) Follow Up Appt 3 months 08-26-2011 - [facility] 08-26-2011 Héctor SIMMONS ([id number]) Electrocardiogram, complete 08-26-2011 - [facility] 08-26-2011 Héctor SIMMONS ([id number]) Follow Up Appt 3 months 08-26-2011 - [facility] 08-26-2011 Héctor SIMMONS ([id number]) Ecg routine ecg w/least 12 06-27-2011 - [facility] lds w/i&r 06-27-2011 Héctor SIMMONS ([id number]) Follow Up Appt 2 months 06-27-2011 - [facility] 06-27-2011 Héctor SIMMONS ([id number]) Follow Up Appt 2 months 06-27-2011 - [facility] 06-27-2011 Héctor SIMMONS ([id number]) Lipid panel [AGGREGATE] 06-27-2011 - [facility] 06-27-2011 Héctor SIMMONS ([id number]) Follow Up Appt 4 months 06-10-2011 - [facility] 06-10-2011 Héctor SIMMONS ([id number]) Follow Up Appt 4 months 06-10-2011 - [facility] 06-10-2011 Héctor SIMMONS ([id number]) Implantation of automatic 07-16-2010 [facility] cardiac defibrillator ([id number]) Placement of stent in 07-16-2010 [facility] coronary artery ([id number]) Implantation of automatic 07-16-2010 [facility] cardiac defibrillator Service, [facility] ([id number]) Plan of Treatment Plan Description Date Location COLONOSCOPY COLONOSCOPY 01-07-2028 - [facility] 01-07-2028 ([id number]) COLORECTAL CANCER COLORECTAL CANCER 01-07-2028 - [facility] SCREENING,SEE MODIFIER SCREENING,SEE MODIFIER 01-07-2028 ([id number]) DTAP,TDAP,TD (3 - Td) DTAP,TDAP,TD (3 - Td) 10-17-2027 - [facility] 10-17-2027 ([id number]) ADVANCE DIRECTIVE ADVANCE DIRECTIVE 10-26-2024 - [facility] DISCUSSION DISCUSSION 10-26-2024 ([id number]) HEMOGLOBIN/HEMATOCRIT HEMOGLOBIN/HEMATOCRIT 12-08-2020 - [facility] 12-08-2020 ([id number]) DIABETIC FOOT EXAM DIABETIC FOOT EXAM 11-26-2020 - [facility] 11-26-2020 ([id number]) Comment: Postponed from 07/16/2019 (C urrent Illness) ANNUAL PCP TEAM ANNUAL PCP TEAM 10-26-2020 - [facility] CHRONIC DISEASE VISIT CHRONIC DISEASE VISIT 10-26-2020 ([id number]) BP CONTROLLED BP CONTROLLED 10-26-2020 - [facility] (<130/80) (<130/80) 10-26-2020 ([id number]) SHINGRIX VACCINE (1 of SHINGRIX VACCINE (1 of 10-26-2020 - [facility]) 2) 10-26-2020 ([id number]) Comment: Postponed from 10/20/1995 (D eclined at this time) URINE ALBUMIN:CREATININE URINE ALBUMIN:CREATININE 10-13-2020 - [facility] RATIO RATIO 10-13-2020 ([id number]) LDL CHOLESTEROL LDL CHOLESTEROL 10-13-2020 - [facility] 10-13-2020 ([id number]) SERUM CREATININE SERUM CREATININE 10-13-2020 - [facility] 10-13-2020 ([id number]) DILATED RETINAL EXAM DILATED RETINAL EXAM 08-10-2020 - [facility] 08-10-2020 ([id number]) HBA1C HBA1C 04-15-2020 - [facility] 04-15-2020 ([id number]) HEMOGLOBIN/HEMATOCRIT HEMOGLOBIN/HEMATOCRIT 01-15-2020 - [facility] 01-15-2020 ([id number]) INFLUENZA (#1) INFLUENZA (#1) 2019 - [facility] 11-29-2019 ([id number]) Appointment Appointment 07-07-2017 - [facility] 07-07-2017 Group ([id number]) Appointment Appointment 05-04-2017 - [facility] 05-04-2017 Group ([id number]) Follow Up Appt 3 months Follow Up Appt 3 months 01-30-2017 - [facility] 02-02-2017 Group ([id number]) Pacer Clinic Pacer Clinic 01-30-2017 - [facility] 02-02-2017 Group ([id number]) Appointment Appointment 01-30-2017 - [facility] 01-30-2017 Group ([id number]) Appointment Appointment 01-01-2017 - [facility] 01-01-2017 Group ([id number]) ENERGY PROFESSIONAL ENERGY PROFESSIONAL 01-01-2017 - [facility] 01-01-2017 Group ([id number]) Follow Up Appt 6 months Follow Up Appt 6 months 01-01-2017 - [facility] 01-01-2017 Group ([id number]) Appointment Appointment 12-24-2016 - [facility] 12-24-2016 Group ([id number]) *Hepatic Function Panel *Hepatic Function Panel 11-18-2016 - [facility] 05-22-2016 Group ([id number]) *Lipid Profile CC PCP *Lipid Profile CC PCP 11-18-2016 - [facility] 05-22-2016 Group ([id number]) Follow Up Appt 3 months Follow Up Appt 3 months 10-30-2016 - [facility] 12-17-2016 Group ([id number]) Pacer Clinic Pacer Clinic 10-30-2016 - [facility] 12-17-2016 Group ([id number]) Appointment Appointment 10-30-2016 - [facility] 10-30-2016 Group ([id number]) Appointment Appointment 10-30-2016 - [facility] 10-30-2016 Group ([id number]) Follow Up Appt 3 months Follow Up Appt 3 months 10-30-2016 - [facility] 10-30-2016 Group ([id number]) Pacer Clinic Pacer Clinic 10-30-2016 - [facility] 10-30-2016 Group ([id number]) Appointment Appointment 09-18-2016 - [facility] 09-18-2016 Group ([id number]) Appointment Appointment 09-04-2016 - [facility] 09-04-2016 Group ([id number]) Appointment Appointment 09-04-2016 - [facility] 09-04-2016 Group ([id number]) Follow Up Appt 3 months Follow Up Appt 3 months 09-04-2016 - [facility] 12-17-2016 Group ([id number]) MMM MMM 09-04-2016 - [facility] 12-17-2016 Group ([id number]) Follow Up Appt 3 months Follow Up Appt 3 months 09-04-2016 - [facility] 09-04-2016 Group ([id number]) MMM MMM 09-04-2016 - [facility] 09-04-2016 Group ([id number]) Follow Up Appt 3 months Follow Up Appt 3 months 07-30-2016 - [facility] 11-17-2016 Group ([id number]) Pacer Clinic Pacer Clinic 07-30-2016 - [facility] 11-17-2016 Group ([id number]) Appointment Appointment 07-30-2016 - [facility] 07-30-2016 Group ([id number]) Follow Up Appt 3 months Follow Up Appt 3 months 07-30-2016 - [facility] 11-17-2016 Group ([id number]) Pacer Clinic Pacer Clinic 07-30-2016 - [facility] 11-17-2016 Group ([id number]) *BMP *BMP 06-19-2016 - [facility] 06-19-2016 Group ([id number]) Cardiac Rehab Cardiac Rehab 06-19-2016 - [facility] 11-17-2016 Group ([id number]) ENERGY PROFESSIONAL ENERGY PROFESSIONAL 06-19-2016 - [facility] 06-19-2016 Group ([id number]) Follow Up Appt 3 months Follow Up Appt 3 months 06-19-2016 - [facility] 11-17-2016 Group ([id number]) *Magnesium *Magnesium 06-19-2016 - [facility] 06-19-2016 Group ([id number]) Pacer Clinic Pacer Clinic 06-19-2016 - [facility] 11-17-2016 Group ([id number]) *BMP *BMP 06-19-2016 - [facility] 06-19-2016 Group ([id number]) Cardiac Rehab Cardiac Rehab 06-19-2016 - [facility] 11-17-2016 Group ([id number]) ENERGY PROFESSIONAL ENERGY PROFESSIONAL 06-19-2016 - [facility] 06-19-2016 Group ([id number]) Follow Up Appt 3 months Follow Up Appt 3 months 06-19-2016 - [facility] 11-17-2016 Group ([id number]) *Magnesium *Magnesium 06-19-2016 - [facility] 06-19-2016 Group ([id number]) Pacer Clinic Pacer Clinic 06-19-2016 - [facility] 11-17-2016 Group ([id number]) *Hepatic Function Panel *Hepatic Function Panel 05-21-2016 - [facility] 05-21-2016 Group ([id number]) *Lipid Profile CC PCP *Lipid Profile CC PCP 05-21-2016 - [facility] 05-21-2016 Group ([id number]) *Hepatic Function Panel *Hepatic Function Panel 05-21-2016 - [facility] 05-21-2016 Group ([id number]) *Lipid Profile CC PCP *Lipid Profile CC PCP 05-21-2016 - [facility] 05-21-2016 Group ([id number]) Follow Up Appt 3 months Follow Up Appt 3 months 04-30-2016 - [facility] 11-17-2016 Group ([id number]) Pacer Clinic Pacer Clinic 04-30-2016 - [facility] 11-17-2016 Group ([id number]) Follow Up Appt 3 months Follow Up Appt 3 months 04-30-2016 - [facility] 11-17-2016 Group ([id number]) Pacer Clinic Pacer Clinic 04-30-2016 - [facility] 11-17-2016 Group ([id number]) Carotid duplex Carotid duplex 03-14-2016 - [facility] 03-14-2016 Group ([id number]) Follow Up Appt 3 months Follow Up Appt 3 months 03-14-2016 - [facility] 03-14-2016 Group ([id number]) *PT/INR *PT/INR 03-14-2016 - [facility] 03-14-2016 Group ([id number]) MMM MMM 03-14-2016 - [facility] 03-14-2016 Group ([id number]) Carotid duplex Carotid duplex 03-14-2016 - [facility] 03-14-2016 Group ([id number]) *PT/INR *PT/INR 03-14-2016 - [facility] 03-14-2016 Group ([id number]) Follow Up Appt 3 months Follow Up Appt 3 months 03-14-2016 - [facility] 03-14-2016 Group ([id number]) MMM MMM 03-14-2016 - [facility] 03-14-2016 Group ([id number]) *BMP *BMP 01-30-2016 - [facility] 01-30-2016 Group ([id number]) *CBC without Diff *CBC without Diff 01-30-2016 - [facility] 01-30-2016 [facility] ([id number]) X-Ray, Chest, PA & Lateral X-Ray, Chest, PA & Lateral 01-30-2016 - [facility] 02-08-2016 Group ([id number]) EKG (In office) EKG (In office) 01-30-2016 - [facility] 01-30-2016 Group ([id number]) Follow Up Appt 6 weeks Follow Up Appt 6 weeks 01-30-2016 - [facility] 01-30-2016 Group ([id number]) *PT/INR *PT/INR 01-30-2016 - [facility] 01-30-2016 Group ([id number]) Left Heart Cath Left Heart Cath 01-30-2016 - [facility] 01-30-2016 Group ([id number]) MMM MMM 01-30-2016 - [facility] 01-30-2016 Group ([id number]) US Abdominal (aneurysm US Abdominal (aneurysm 01-30-2016 - [facility]) screening) 01-30-2016 Group ([id number]) *BMP *BMP 01-30-2016 - [facility] 01-30-2016 Group ([id number]) *CBC without Diff *CBC without Diff 01-30-2016 - [facility] 01-30-2016 Group ([id number]) X-Ray, Chest, PA & Lateral X-Ray, Chest, PA & Lateral 01-30-2016 - [facility] 02-08-2016 Group ([id number]) *PT/INR *PT/INR 01-30-2016 - [facility] 01-30-2016 Group ([id number]) US Abdominal (aneurysm US Abdominal (aneurysm 01-30-2016 - [facility]) screening) 01-30-2016 Group ([id number]) EKG (In office) EKG (In office) 01-30-2016 - [facility] 01-30-2016 Group ([id number]) Follow Up Appt 6 weeks Follow Up Appt 6 weeks 01-30-2016 - [facility] 01-30-2016 Group ([id number]) Left Heart Cath Left Heart Cath 01-30-2016 - [facility] 01-30-2016 Group ([id number]) MMM MMM 01-30-2016 - [facility] 01-30-2016 Group ([id number]) Follow Up Appt 3 months Follow Up Appt 3 months 01-23-2016 - [facility] 11-17-2016 Group ([id number]) Pacer Clinic Pacer Clinic 01-23-2016 - [facility] 11-17-2016 Group ([id number]) Follow Up Appt 3 months Follow Up Appt 3 months 01-23-2016 - [facility] 11-17-2016 Group ([id number]) Pacer Clinic Pacer Clinic 01-23-2016 - [facility] 11-17-2016 Group ([id number]) *Hepatic Function Panel *Hepatic Function Panel 11-05-2015 - [facility] 11-20-2015 Group ([id number]) *Lipid Profile CC PCP *Lipid Profile CC PCP 11-05-2015 - [facility] 11-20-2015 Group ([id number]) *Hepatic Function Panel *Hepatic Function Panel 11-05-2015 - [facility] 11-20-2015 Group ([id number]) *Lipid Profile CC PCP *Lipid Profile CC PCP 11-05-2015 - [facility] 11-20-2015 Group ([id number]) Follow Up Appt 3 months Follow Up Appt 3 months 10-18-2015 - [facility] 02-08-2016 Group ([id number]) Pacer Clinic Pacer Clinic 10-18-2015 - [facility] 02-08-2016 Group ([id number]) Follow Up Appt 3 months Follow Up Appt 3 months 10-18-2015 - [facility] 02-08-2016 Group ([id number]) Pacer Clinic Pacer Clinic 10-18-2015 - [facility] 02-08-2016 Group ([id number]) Follow Up Appt 3 months Follow Up Appt 3 months 07-18-2015 - [facility] 02-08-2016 Group ([id number]) Pacer Clinic Pacer Clinic 07-18-2015 - [facility] 02-08-2016 Group ([id number]) Follow Up Appt 3 months Follow Up Appt 3 months 07-18-2015 - [facility] 02-08-2016 Group ([id number]) Pacer Clinic Pacer Clinic 07-18-2015 - [facility] 02-08-2016 Group ([id number]) [facility] ENERGY PROFESSIONAL 07-03-2015 - [facility] 07-03-2015 Group ([id number]) Follow Up Appt 6 months Follow Up Appt 6 months 07-03-2015 - [facility] 07-03-2015 Group ([id number]) ENERGY PROFESSIONAL ENERGY PROFESSIONAL 07-03-2015 - [facility] 07-03-2015 Group ([id number]) Follow Up Appt 6 months Follow Up Appt 6 months 07-03-2015 - [facility] 07-03-2015 Group ([id number]) *Hepatic Function Panel *Hepatic Function Panel 06-20-2015 - [facility] 06-20-2015 Group ([id number]) *Lipid Profile CC PCP *Lipid Profile CC PCP 06-20-2015 - [facility] 06-20-2015 Group ([id number]) *Hepatic Function Panel *Hepatic Function Panel 06-20-2015 - [facility] 06-20-2015 Group ([id number]) *Lipid Profile CC PCP *Lipid Profile CC PCP 06-20-2015 - [facility] 06-20-2015 Group ([id number]) Follow Up Appt 3 months Follow Up Appt 3 months 04-13-2015 - [facility] 02-08-2016 Group ([id number]) Pacer Clinic Pacer Clinic 04-13-2015 - [facility] 02-08-2016 Group ([id number]) Follow Up Appt 3 months Follow Up Appt 3 months 04-13-2015 - [facility] 02-08-2016 Group ([id number]) Pacer Clinic Pacer Clinic 04-13-2015 - [facility] 02-08-2016 Group ([id number]) US Abdominal (aneurysm US Abdominal (aneurysm 04-11-2015 - [facility]) screening) 04-05-2015 Group ([id number]) US Abdominal (aneurysm US Abdominal (aneurysm 04-11-2015 - [facility]) screening) 04-05-2015 Group ([id number]) External Counterpulsation External Counterpulsation 04-06-2015 - [facility] [address] [facility], Therapy [address] [facility], 04-06-2015 Group ([id number]) [address], [place], [place], [address] [place], [id number] External Counterpulsation External Counterpulsation 04-06-2015 - [facility] [address] [facility], Therapy [address] [facility], 02-08-2016 Group ([id number]) [address] [place], [place], [address] [place], [id number] ENERGY PROFESSIONAL ENERGY PROFESSIONAL 03-29-2015 - [facility] 03-29-2015 Group ([id number]) Follow Up Appt 3 months Follow Up Appt 3 months 03-29-2015 - [facility] 03-29-2015 Group ([id number]) ENERGY PROFESSIONAL ENERGY PROFESSIONAL 03-29-2015 - [facility] 03-29-2015 Group ([id number]) Follow Up Appt 3 months Follow Up Appt 3 months 03-29-2015 - [facility] 03-29-2015 Group ([id number]) Follow Up Appt 3 months Follow Up Appt 3 months 01-05-2015 - [facility] 03-05-2015 Group ([id number]) Pacer Clinic Pacer Clinic 01-05-2015 - [facility] 03-05-2015 Group ([id number]) Follow Up Appt 3 months Follow Up Appt 3 months 01-05-2015 - [facility] 03-05-2015 Group ([id number]) Pacer Clinic Pacer Clinic 01-05-2015 - [facility] 03-05-2015 Group ([id number]) Cardiac Rehab Cardiac Rehab 12-27-2014 - [facility] 03-05-2015 Group ([id number]) Follow Up Appt 3 months Follow Up Appt 3 months 12-27-2014 - [facility] 12-27-2014 Group ([id number]) MMM MMM 12-27-2014 - [facility] 12-27-2014 Group ([id number]) Cardiac Rehab Cardiac Rehab 12-27-2014 - [facility] 03-05-2015 Group ([id number]) Follow Up Appt 3 months Follow Up Appt 3 months 12-27-2014 - [facility] 12-27-2014 Group ([id number]) MMM MMM 12-27-2014 - [facility] 12-27-2014 Group ([id number]) Follow Up BP Check Follow Up BP Check 12-11-2014 - [place] [facility] 12-11-2014 Group ([id number]) Left Heart Cath Left Heart Cath 12-11-2014 - [facility] 12-11-2014 Group ([id number]) Follow Up BP Check Follow Up BP Check 12-11-2014 - [facility] 12-11-2014 Group ([id number]) Left Heart Cath Left Heart Cath 12-11-2014 - [facility] 12-11-2014 Group ([id number]) *BMP *BMP 12-06-2014 - [facility] 12-06-2014 Group ([id number]) Follow Up Appt Other Follow Up Appt Other 12-06-2014 - [facility] 12-06-2014 Group ([id number]) *BMP *BMP 12-06-2014 - [facility] 12-06-2014 Group ([id number]) Follow Up Appt Other Follow Up Appt Other 12-06-2014 - [facility] 12-06-2014 Group ([id number]) *Lipid Profile CC PCP *Lipid Profile CC PCP 11-28-2014 - [facility] 12-21-2014 Group ([id number]) *Lipid Profile CC PCP *Lipid Profile CC PCP 11-28-2014 - [facility] 12-21-2014 Group ([id number]) Follow Up Appt 6 months Follow Up Appt 6 months 11-03-2014 - [facility] 11-03-2014 Group ([id number]) MMM MMM 11-03-2014 - [facility] 11-03-2014 Group ([id number]) Follow Up Appt 6 months Follow Up Appt 6 months 11-03-2014 - [facility] 11-03-2014 Group ([id number]) MMM MMM 11-03-2014 - [facility] 11-03-2014 Group ([id number]) ENERGY PROFESSIONAL ENERGY PROFESSIONAL 09-27-2014 - [facility] 09-27-2014 Group ([id number]) EKG (In office) EKG (In office) 09-27-2014 - [facility] 09-27-2014 Group ([id number]) Follow Up Appt 3 months Follow Up Appt 3 months 09-27-2014 - [facility] 11-03-2014 Group ([id number]) Follow Up Appt 6 months Follow Up Appt 6 months 09-27-2014 - [facility] 09-27-2014 Group ([id number]) Pacer Clinic Pacer Clinic 09-27-2014 - [facility] 11-03-2014 Group ([id number]) ENERGY PROFESSIONAL [facility] 09-27-2014 - [facility] 09-27-2014 Group ([id number]) EKG (In office) EKG (In office) 09-27-2014 - [facility] 09-27-2014 Group ([id number]) Follow Up Appt 3 months Follow Up Appt 3 months 09-27-2014 - [facility] 11-03-2014 Group ([id number]) Follow Up Appt 6 months Follow Up Appt 6 months 09-27-2014 - [facility] 09-27-2014 Group ([id number]) Pacer Clinic Pacer Clinic 09-27-2014 - [facility] 11-03-2014 Group ([id number]) *Hepatic Function Panel *Hepatic Function Panel 07-28-2014 - [facility] 08-25-2014 Group ([id number]) *Lipid Profile CC PCP *Lipid Profile CC PCP 07-28-2014 - [facility] 08-25-2014 Group ([id number]) *Hepatic Function Panel *Hepatic Function Panel 07-28-2014 - [facility] 08-25-2014 Group ([id number]) *Lipid Profile CC PCP *Lipid Profile CC PCP 07-28-2014 - [facility] 08-25-2014 Group ([id number]) Follow Up Appt 3 months Follow Up Appt 3 months 06-12-2014 - [facility] 09-15-2014 Group ([id number]) Pacer Clinic Pacer Clinic 06-12-2014 - [facility] 09-15-2014 Group ([id number]) Follow Up Appt 3 months Follow Up Appt 3 months 06-12-2014 - [facility] 09-15-2014 Group ([id number]) Pacer Clinic Pacer Clinic 06-12-2014 - [facility] 09-15-2014 Group ([id number]) Follow Up Appt 3 months Follow Up Appt 3 months 03-14-2014 - [facility] 09-15-2014 Group ([id number]) Follow Up Appt 6 months Follow Up Appt 6 months 03-14-2014 - [facility] 03-14-2014 Group ([id number]) MMM MMM 03-14-2014 - [facility] 03-14-2014 Group ([id number]) Pacer Clinic Pacer Clinic 03-14-2014 - [facility] 09-15-2014 Group ([id number]) Follow Up Appt 3 months Follow Up Appt 3 months 03-14-2014 - [facility] 09-15-2014 Group ([id number]) Follow Up Appt 6 months Follow Up Appt 6 months 03-14-2014 - [facility] 03-14-2014 Group ([id number]) MMM MMM 03-14-2014 - [facility] 03-14-2014 Group ([id number]) Pacer Clinic Pacer Clinic 03-14-2014 - [facility] 09-15-2014 Group ([id number]) *Hepatic Function Panel *Hepatic Function Panel 01-28-2014 - [facility] 02-06-2014 Group ([id number]) *Lipid Profile CC PCP *Lipid Profile CC PCP 01-28-2014 - [facility] 02-06-2014 Group ([id number]) *Hepatic Function Panel *Hepatic Function Panel 01-28-2014 - [facility] 02-06-2014 Group ([id number]) *Lipid Profile CC PCP *Lipid Profile CC PCP 01-28-2014 - [facility] 02-06-2014 Group ([id number]) Follow Up Appt 2 months Follow Up Appt 2 months 12-16-2013 - [facility] 09-15-2014 Group ([id number]) Pacer Clinic Pacer Clinic 12-16-2013 - [facility] 09-15-2014 Group ([id number]) Follow Up Appt 2 months Follow Up Appt 2 months 12-16-2013 - [facility] 09-15-2014 Group ([id number]) Pacer Clinic Pacer Clinic 12-16-2013 - [facility] 09-15-2014 Group ([id number]) Follow Up Appt 3 months Follow Up Appt 3 months 09-15-2013 - [facility] 09-15-2014 Group ([id number]) Pacer Clinic Pacer Clinic 09-15-2013 - [facility] 09-15-2014 Group ([id number]) Follow Up Appt 3 months Follow Up Appt 3 months 09-15-2013 - [facility] 09-15-2014 Group ([id number]) Pacer Clinic Pacer Clinic 09-15-2013 - [facility] 09-15-2014 Group ([id number]) ENERGY PROFESSIONAL ENERGY PROFESSIONAL 09-06-2013 - [facility] 09-06-2013 Group ([id number]) Follow Up Appt 6 months Follow Up Appt 6 months 09-06-2013 - [facility] 09-06-2013 Group ([id number]) ENERGY PROFESSIONAL ENERGY PROFESSIONAL 09-06-2013 - [facility] 09-06-2013 Group ([id number]) Follow Up Appt 6 months Follow Up Appt 6 months 09-06-2013 - [facility] 09-06-2013 Group ([id number]) *Hepatic Function Panel *Hepatic Function Panel 07-28-2013 - [facility] 08-08-2013 Group ([id number]) *Lipid Profile CC PCP *Lipid Profile CC PCP 07-28-2013 - [facility] 08-08-2013 Group ([id number]) *Hepatic Function Panel *Hepatic Function Panel 07-28-2013 - [facility] 08-08-2013 Group ([id number]) *Lipid Profile CC PCP *Lipid Profile CC PCP 07-28-2013 - [facility] 08-08-2013 Group ([id number]) Follow Up Appt 3 months Follow Up Appt 3 months 06-08-2013 - [facility] 08-25-2013 Group ([id number]) Pacer Clinic Pacer Clinic 06-08-2013 - [facility] 08-25-2013 Group ([id number]) Follow Up Appt 3 months Follow Up Appt 3 months 06-08-2013 - [facility] 08-25-2013 Group ([id number]) Pacer Clinic Pacer Clinic 06-08-2013 - [facility] 08-25-2013 Group ([id number]) Follow Up Appt 3 months Follow Up Appt 3 months 03-09-2013 - [facility] 05-17-2013 Group ([id number]) Pacer Clinic Pacer Clinic 03-09-2013 - [facility] 05-17-2013 Group ([id number]) Follow Up Appt 3 months Follow Up Appt 3 months 03-09-2013 - [facility] 05-17-2013 Group ([id number]) Pacer Clinic Pacer Clinic 03-09-2013 - [facility] 05-17-2013 Group ([id number]) EKG (In office) EKG (In office) 03-08-2013 - [facility] 05-17-2013 Group ([id number]) Follow Up Appt 6 months Follow Up Appt 6 months 03-08-2013 - [facility] 05-17-2013 Group ([id number]) MMM MMM 03-08-2013 - [facility] 05-17-2013 Group ([id number]) EKG (In office) EKG (In office) 03-08-2013 - [facility] 05-17-2013 Group ([id number]) Follow Up Appt 6 months Follow Up Appt 6 months 03-08-2013 - [facility] 05-17-2013 Group ([id number]) MMM MMM 03-08-2013 - [facility] 05-17-2013 Group ([id number]) *Hepatic Function Panel *Hepatic Function Panel 01-28-2013 - [facility] 02-04-2013 Group ([id number]) *Lipid Profile *Lipid Profile 01-28-2013 - [facility] 02-04-2013 Group ([id number]) *Hepatic Function Panel *Hepatic Function Panel 01-28-2013 - [facility] 02-04-2013 Group ([id number]) *Lipid Profile *Lipid Profile 01-28-2013 - [facility] 02-04-2013 Group ([id number]) Follow Up Appt 3 months Follow Up Appt 3 months 12-08-2012 - [facility] 05-17-2013 Group ([id number]) Pacer [facility] Pacer Clinic 12-08-2012 - [facility] 05-17-2013 Group ([id number]) Follow Up Appt 3 months Follow Up Appt 3 months 12-08-2012 - [facility] 05-17-2013 Group ([id number]) Pacer [facility] Pacer Clinic 12-08-2012 - [facility] 05-17-2013 Group ([id number]) Follow Up Appt 6 months Follow Up Appt 6 months 11-25-2012 - [facility] 11-25-2012 Group ([id number]) MMM MMM 11-25-2012 - [facility] 11-25-2012 Group ([id number]) Follow Up Appt 6 months Follow Up Appt 6 months 11-25-2012 - [facility] 11-25-2012 Group ([id number]) MMM MMM 11-25-2012 - [facility] 11-25-2012 Group ([id number]) Follow Up Appt 3 months Follow Up Appt 3 months 09-03-2012 - [place] [facility] 05-17-2013 Group ([id number]) Pacer [facility] Pacer Clinic 09-03-2012 - [facility] 05-17-2013 Group ([id number]) Follow Up Appt 3 months Follow Up Appt 3 months 09-03-2012 - [place] [facility] 05-17-2013 Group ([id number]) Pacer [facility] Pacer Clinic 09-03-2012 - [facility] 05-17-2013 Group ([id number]) *BMP *BMP 09-01-2012 - [facility] 03-04-2012 Group ([id number]) *Hepatic Function Panel *Hepatic Function Panel 09-01-2012 - [facility] 05-17-2013 Group ([id number]) *Lipid Profile *Lipid Profile 09-01-2012 - [facility] 05-17-2013 Group ([id number]) *Magnesium *Magnesium 09-01-2012 - [facility] 05-17-2013 Group ([id number]) *BMP *BMP 09-01-2012 - [facility] 03-04-2012 Group ([id number]) *Hepatic Function Panel *Hepatic Function Panel 09-01-2012 - [facility] 05-17-2013 Group ([id number]) *Lipid Profile *Lipid Profile 09-01-2012 - [facility] 05-17-2013 Group ([id number]) *Magnesium *Magnesium 09-01-2012 - [facility] 05-17-2013 Group ([id number]) Follow Up Appt 6 months Follow Up Appt 6 months 03-04-2012 - [facility] 03-04-2012 Group ([id number]) Follow Up Appt 6 months Follow Up Appt 6 months 03-04-2012 - [facility] 03-04-2012 Group ([id number]) *Hepatic Function Panel *Hepatic Function Panel 02-04-2012 - [facility] 02-11-2012 Group ([id number]) *Lipid Profile *Lipid Profile 02-04-2012 - [facility] 02-11-2012 Group ([id number]) *Hepatic Function Panel *Hepatic Function Panel 02-04-2012 - [facility] 02-11-2012 Group ([id number]) *Lipid Profile *Lipid Profile 02-04-2012 - [facility] 02-11-2012 Group ([id number]) Follow Up Appt 4 months Follow Up Appt 4 months 11-24-2011 - [facility] 11-24-2011 Group ([id number]) Follow Up Appt 4 months Follow Up Appt 4 months 11-24-2011 - [facility] 11-24-2011 Group ([id number]) *Hepatic Function Panel *Hepatic Function Panel 10-29-2011 - [facility] 10-27-2011 Group ([id number]) *Lipid Profile *Lipid Profile 10-29-2011 - [facility] 10-27-2011 Group ([id number]) *Hepatic Function Panel *Hepatic Function Panel 10-29-2011 - [facility] 10-27-2011 Group ([id number]) *Lipid Profile *Lipid Profile 10-29-2011 - [facility] 10-27-2011 Group ([id number]) *BMP *BMP 10-16-2011 - [facility] 10-27-2011 Group ([id number]) *BMP *BMP 10-16-2011 - [facility] 10-27-2011 Group ([id number]) EKG (In office) EKG (In office) 08-26-2011 - [facility] 08-26-2011 Group ([id number]) Follow Up Appt 3 months Follow Up Appt 3 months 08-26-2011 - [facility] 08-26-2011 Group ([id number]) EKG (In office) EKG (In office) 08-26-2011 - [facility] 08-26-2011 Group ([id number]) Follow Up Appt 3 months Follow Up Appt 3 months 08-26-2011 - [facility] 08-26-2011 Group ([id number]) EKG (In office) EKG (In office) 06-27-2011 - [facility] 06-27-2011 Group ([id number]) Follow Up Appt 2 months Follow Up Appt 2 months 06-27-2011 - [facility] 06-27-2011 Group ([id number]) EKG (In office) EKG (In office) 06-27-2011 - [facility] 06-27-2011 Group ([id number]) Follow Up Appt 2 months Follow Up Appt 2 months 06-27-2011 - [facility] 06-27-2011 Group ([id number]) Follow Up Appt 4 months Follow Up Appt 4 months 06-10-2011 - [facility] 06-10-2011 Group ([id number]) Follow Up Appt 4 months Follow Up Appt 4 months 06-10-2011 - [facility] 06-10-2011 Group ([id number]) Patient education no information [facility] ([id number]) no information [facility] ([id number]) Immunizations Vaccine Notes Status Date Location Influenza Vaccine, influenza virus (completed) 01-06-2013 - [facility] Split-Non Spec vaccine, unspecified 01-06-2013 ([id number]) formulation Influenza Seasonal - influenza, high dose (completed) 01-14-2019 - [facility] High Dose - Age 65+ seasonal, 01-14-2019 ([id number]) preservative-free Influenza Seasonal - influenza, high dose (completed) 01-26-2018 - [facility] High Dose - Age 65+ seasonal, 01-26-2018 ([id number]) preservative-free Influenza Seasonal - influenza, high dose (completed) 01-19-2017 - [facility] High Dose - Age 65+ seasonal, 01-19-2017 ([id number]) preservative-free Influenza Seasonal - influenza, high dose (completed) 01-18-2016 - [facility] High Dose - Age 65+ seasonal, 01-18-2016 ([id number]) preservative-free Influenza Seasonal - influenza, high dose (completed) 01-24-2015 - [facility] High Dose - Age 65+ seasonal, 01-24-2015 ([id number]) preservative-free Novel Influenza H1N1, novel (completed) 01-31-2009 - [facility] preservative free [id number], 01-31-2009 ([id number]) preservative-free, injectable Pneumococcal-13 Vac pneumococcal (completed) 06-07-2014 - [facility] Conjugate conjugate vaccine, 13 06-07-2014 ([id number] ) valent Tdap (Age 7+) tetanus toxoid, (completed) 09-16-2007 - [facility] linic reduced diphtheria 09-16-2007 ([id number]) toxoid, and acellular pertussis vaccine, adsorbed Payers Payer Name Policy Number Location MEDICARE [id number] [facility] (44 195) MEDICARE PART B [id number] [facility] ([place]) ([id number]) [facility] [id number] [facility] (44 195) The following information is from the original human readable contentNo Payer Records Found Social History Type Social History Date Location Description History of tobacco use Current smoker 08-12-2007 [facility] ([id number]) History SDOH Social 2 12-17-2018 - [facility] [employer] Membership 09-09-2019 ([id number]) History of tobacco use Cigar Smoker 08-12-2007 [facility] ([id number]) Tobacco use and exposure Never used 10-27-2019 - [facility] 10-27-2019 ([id number]) Alcohol intake Current non-drinker of 10-27-2019 [facility] alcohol (finding) 10-27-2019 ([id number]) History SDOH Alcohol 1 09-09-2019 - [facility] linic Frequency 09-09-2019 ([id number]) History SDOH Social 98 09-09-2019 - [facility] [employer] Phone 09-09-2019 ([id number]) Tobacco smoking status Former smoker 10-27-2019 - [facility] NHIS 10-27-2019 ([id number]) History SDOH Social 3 12-17-2018 - [facility] [facility] 12-17-2018 ([id number]) History SDOH Physical 0 09-09-2019 - [facility] Activity [facility]W 09-09-2019 ([id number]) History SDOH Stress 5 09-09-2019 - [facility] 09-09-2019 ([id number]) History SDOH Education 12 09-09-2019 - [facility] 09-09-2019 ([id number]) Sex Assigned At Not on file [facility] ([id number]) Exposure to SARS-CoV-2 Not sure [facility] (event) ([id number]) The following information is from the original [...] Each five times 07-19-2019 daily. Use with hyperWALLET Systemsuch 09-16-2013 Glucometer as directed Goals Patient Goal [...] - 11/21/2019 3:30 PM EDT TELEPHONIC APPOINTMENT [place] law requires the collaborative practice agreement to [...] pharmacotherapy management appointment for diabetes. At 09/15 RETURNING OFFICER?appt,?insulin NPH dose decreased pt was consulted to pharmacy due to increased hypoglycemia.?At last RETURNING OFFICER visit gabapentin was initiated and empiric treatment for UTI was started with nitrofurantoin mo nohydrate. At PharmD visit on , insulin lispro dose was decreased and patient was recommended to pursue basal/bolus insulin pens through [employer] patient assistance. At last PCP appt, no [...] Coronary atherosclerosis of unspecified type of vessel, [place] or graft s[place]p [place] ? Diverticulosis of colon (without [...] disease, with long-term current use of insulin ([facility]) 06/15/2017 ? Unspecified essential hypertension [...] G47.33 327.23 - fax compliance download to [phone] 1 Device 0 ? flash glucose sensor [...] once daily. 0 ? blood sugar diagnostic ([employer] BLOOD GLUCOSE SYSTEM) test strip Use as [...] (ONE TOUCH ULTRASOFT LANCETS) lancets Use with [employer]Me Glucometer as directed 100 Each 3 ? [...] disease, with long-term current use of insulin ([facility]) - ICD9: 250.40, 585.3, V58.67, [...] approval of new basal/bolus insulin pens from [facility].?Renal function and LFTs appropriate for continued use. [place] law requires the collaborative practice agreement to [...] for switching to Basaglar and Humalog through [employer] patient assistance, will replace current insulins. ? ACEi/ARB for renal protection:?yes, Scr and K+ ok to continue ? HbA1c: 01/14/2020 Patient is not scheduled to see PCP. Patient to follow up with PharmD, pt to call me by end of week with update on if approved by PAP. Patient verbalized understanding of instructions. Denita Thorpe, LisaD, BCACP Primary Care Clinical Pharmacist [facility] documented in this [...] BE BASED ON THE PRIMARY CLINICAL RECORDS. [employer] provides no warranty or guarantee of the accuracy or completeness of information in this document. UNRECOGNIZED CONTENT PROVIDED BELOW FOR UNRECOGNIZED SECTION Source Comments In the event this information is protected by the Federal Confidentiality of Alcohol and Drug Abuse Patient Records regulations: The Federal rules restrict any use of the information to criminally investigate or prosecute any alcohol or drug abuse patient.[facility] the event this information is protected by the Federal Confidentiality of Alcohol and Drug Abuse Patient Records regulations: The Federal rules restrict any use of the information to criminally investigate or prosecute any alcohol or drug abuse patient.[facility] HospitalIn the event this information is protected by the Federal Confidentiality of Alcohol and Drug Abuse Patient Records regulations: The Federal rules restrict any use of the information to criminally investigate or prosecute any alcohol or drug abuse patient.[facility] HospitalIn the event this information is protected by the Federal Confidentiality of Alcohol and Drug Abuse Patient Records regulations: The Federal rules restrict any use of the information to criminally investigate or prosecute any alcohol or drug abuse patient.[facility] HospitalIn the event this information is protected by the Federal Confidentiality of Alcohol and Drug Abuse Patient Records regulations: The Federal rules restrict any use of the information to criminally investigate or prosecute any alcohol or drug abuse patient.[facility] HospitalIn the event this information is protected by the Federal Confidentiality of Alcohol and Drug Abuse Patient Records regulations: The Federal rules restrict any use of the information to criminally investigate or prosecute any alcohol or drug abuse patient.[facility] HospitalIn the event this information is protected by the Federal Confidentiality of Alcohol and Drug Abuse Patient Records regulations: The Federal rules restrict any use of the information to criminally investigate or prosecute any alcohol or drug abuse patient.[facility] HospitalIn the event this information is protected by the Federal Confidentiality of Alcohol and Drug Abuse Patient Records regulations: The Federal rules restrict any use of the information to criminally investigate or prosecute any alcohol or drug abuse patient.[facility] HospitalIn the event this information is protected by the Federal Confidentiality of Alcohol and Drug Abuse Patient Records regulations: The Federal rules restrict any use of the information to criminally investigate or prosecute any alcohol or drug abuse patient.[facility] HospitalIn the event this information is protected by the Federal Confidentiality of Alcohol and Drug Abuse Patient Records regulations: The Federal rules restrict any use of the information to criminally investigate or prosecute any alcohol or drug abuse patient.[facility] HospitalIn the event this information is protected by the Federal Confidentiality of Alcohol and Drug Abuse Patient Records regulations: The Federal rules restrict any use of the information to criminally investigate or prosecute any alcohol or drug abuse patient.[facility] HospitalIn the event this information is protected by the Federal Confidentiality of Alcohol and Drug Abuse Patient Records regulations: The Federal rules restrict any use of the information to criminally investigate or prosecute any alcohol or drug abuse patient.[facility] HospitalIn the event this information is protected by the Federal Confidentiality of Alcohol and Drug Abuse Patient Records regulations: The Federal rules restrict any use of the information to criminally investigate or prosecute any alcohol or drug abuse patient.[facility] HospitalIn the event this information is protected by the Federal Confidentiality of Alcohol and Drug Abuse Patient Records regulations: The Federal rules restrict any use of the information to criminally investigate or prosecute any alcohol or drug abuse patient.[facility] HospitalIn the event this information is protected by the Federal Confidentiality of Alcohol and Drug Abuse Patient Records regulations: The Federal rules restrict any use of the information to criminally investigate or prosecute any alcohol or drug abuse patient.[facility] UNRECOGNIZED CONTENT PROVIDED BELOW FOR UNRECOGNIZED SECTION No Status Records FoundNo Status Records Found UNRECOGNIZED CONTENT PROVIDED BELOW FOR UNRECOGNIZED SECTION INFORMATION SOURCE DATE CREATED AUTHOR AUTHOR'S ORGANIZATIO N 09/22/[address] [facility] ([place]) DATE CREATED AUTHOR AUTHOR'S ORGANIZATIO N 01/07/2020 [facility] UNRECOGNIZED CONTENT PROVIDED BELOW FOR [...] 11/28/2019 4:36 PM EDTCalled and spoke with [facility], they confirm that Basaglar is ready for delivery. Will arrive tomorrow. Called and spoke with pt's , Ila to ensure someone over the age of 18 is home to sign for package. She verbalized understanding. Denita Thorpe PharmD, BCACP Primary Care Clinical Pharmacist [facility] Telephone Encounter - Kemi (Pharmacist)Denita - 11/23/2019 1:25 PM EDTOrders for both Humalog and Basaglar (to replace Humulin) were sent to [facility] on 10/23. Attempted to call [facility] to clarify, unable to reach guest service representative. Was able to leave voicemail [...] Thorpe PharmD, BCACP Primary Care Clinical Pharmacist [facility] Telephone Encounter - Ronen Avery LPN - 11/23/2019 10:35 AM EDTPt calls to state he would like to let Denita know that he received his Humalog quick pens but has notreceived his Humulin quick pens yet. Ronen Avery LPN documented in this encounterTelephone Encounter - Emilie (Pharmacist), Gabriela - 12/06/2019 5:22 PM EDT [facility] Referring provider: No ref. provider found Lovely Devi is a 74 year old year old male patient being evaluated today for anticoagulation Telemanagement visit. Patient is currently on the following anticoagulant Warfarin Labs PT INR (no units) Date Value 11/26/2018 Test sent to [facility]. 10/16/2017 1.8 01/16/2017 Test sent to [facility]. INR (POCT) (no units) Date Value [...] Pharmacy Anticoagulation Clinic Pharm[facility] Pager: [phone] Description Patient has 3 mg tablets of warfarin. Patient takes in the morning. . Telephone Encounter - Shawn (Mixing Machine Tender), Cristina - 12/06/2019 5:13 PM EDT Patient called and left message that stated he received a message re: his INR result and dosing but he couldn't understand what dose to take of his warfarin. Patient can be reached at [phone]. Cristina Escobar CPhT (R D Manager) Pharmacy [facility]tico[facility] Telephone Encounter - Andre (Pharmacist)Lee - 12/06/2019 3:29 PM EDT [facility] Lovely Devi is a 74 year old year old male patient being evaluated today for anticoagulation Telemanagement visit. Patient is currently on the following anticoagulant Warfarin Labs PT INR (no units) Date Value 11/26/2018 Test sent to [facility]. 10/16/2017 1.8 01/16/2017 Test sent to [facility]. INR (POCT) (no units) Date Value [...] information and advised to call PAC at [phone] if any questions or changes to report. Would like to try one more time to reach patient. INR 2 weeks ago was low and leftVM for patient so not sure if he got message. Lee Moss, Pharmacist Clinical Pharmacist, Pharmacy Anticoagulation Clinic Pharmacy [facility]tico[facility] Clinic Pager: [phone] Description Patient has 3 mg tablets of [...] Tasha Chan RN - [facility]- reports this was a delay [...] Thorpe, PharmD, BCACP Primary Care Clinical Pharmacist [facility] Telephone Encounter - [...] Blossom (Pharmacist)Joleen - 12/21/2019 9:15 AM EDT [facility] Referring provider: No ref. provider found Lovely Devi is a 74 year old year old male patient being evaluated today for anticoagulation Telemanagement visit. Patient is currently on the following anticoagulant Warfarin Labs PT INR (no units) Date Value 11/26/2018 Test sent to [facility]. 10/16/2017 1.8 01/16/2017 Test sent to [facility]. INR (POCT) (no units) Date Value [...] of liver or green tea, Ensure, Boost, [place] Instant Breakfast, Mulit-Vitamins, and V-8. Plan: ? Advised patient to continue with a higher weekly warfarin dose at this time. ? Next home INR check scheduled on 01/04/2020 ? Patient verbalizes understanding of the plan. JOLEEN CERRATO PHARMACIST Clinical Pharmacist, Pharmacy Anticoagulation Clinic Pharmacy Antico[facility] Clinic Pager: [phone] Description Patient has 3 mg tablets of [...] Thorpe, PharmD, BCACP Primary Care Clinical Pharmacist [facility] documented in this encounter UNRECOGNIZED CONTENT PROVIDED BELOW FOR UNRECOGNIZED SECTION Reason for Visit Reason Onset Date Comments Medication Update 11/23/2019 Reason Comments Allied Health Visit DM Reason Onset Date Comments Anticoagulation Telephone Fu 12/06/2019 Home INR re sult Reason Onset Date Comments Refill Request 12/07/2019 Reason Onset Date Comments [facility] OT POC 12/08/2019 Reason Onset Date Comments insulin did not arrive 11/30/2019 Reason Comments Outside Lab Results CBC, BMP Reason Onset Date Comments Anticoagulation Telephone Fu 12/20/2019 Home INR re sult Reason Onset Date Comments Patient Question 12/27/2019 Reason Onset Date Comments Refill Request 01/06/2020
== END 2019-09-08 13:33 | disposition home or self-care (01) | DRG 602 ==
LOC: ED 17:31 → PCU 18:32
PROVIDERS: Internal Medicine; Nurse Practitioner Family; Admitting Provider Student in an Organized Health Care Education/Training Program; Emergency Provider Emergency Medicine; PCP Family Medicine
DX: L03.115 Cellulitis of right lower limb (principal); I50.23 Acute on chronic systolic (congestive) heart failure; I13.0 Hypertensive heart and chronic kidney disease with heart failure and stage 1 through stage 4 chronic kidney disease, or unspecified chronic kidney disease; E11.22 Type 2 diabetes mellitus with diabetic chronic kidney disease; N18.3 Chronic kidney disease, stage 3 (moderate); I87.2 Venous insufficiency (chronic) (peripheral); L97.912 Non-pressure chronic ulcer of unspecified part of right lower leg with fat layer exposed; I25.118 Atherosclerotic heart disease of native coronary artery with other forms of angina pectoris; I25.5 Ischemic cardiomyopathy; I48.0 Paroxysmal atrial fibrillation; I87.8 Other specified disorders of veins; I89.0 Lymphedema, not elsewhere classified; I25.82 Chronic total occlusion of coronary artery; E78.5 Hyperlipidemia, unspecified; S92.355D Nondisplaced fracture of fifth metatarsal bone, left foot, subsequent encounter for fracture with routine healing; X58.XXXD Exposure to other specified factors, subsequent encounter; K21.9 Gastro-esophageal reflux disease without esophagitis; F17.290 Nicotine dependence, other tobacco product, uncomplicated; E66.9 Obesity, unspecified; Z68.39 Body mass index [BMI] 39.0-39.9, adult; Z79.01 Long term (current) use of anticoagulants; Z79.02 Long term (current) use of antithrombotics/antiplatelets; Z79.82 Long term (current) use of aspirin; Z79.4 Long term (current) use of insulin; Z79.899 Other long term (current) drug therapy; I25.2 Old myocardial infarction; Z86.718 Personal history of other venous thrombosis and embolism; Z86.12 Personal history of poliomyelitis; Z95.5 Presence of coronary angioplasty implant and graft; Z95.810 Presence of automatic (implantable) cardiac defibrillator
CPT/HCPCS: 36415; 71045; 71275; 73630; 80048; 82962; 83880; 84484; 85025; 85610; 87040; 87070; 87077; 87186; 87205; 87640; 93005; 93306; 93970; 94640; 97110; 97116; 97162; 97166; 97530; 97802; 99285; J7050; Q9957; Q9967; A4216; J1940; J2405

== ENCOUNTER 2019-09-14 08:35 | Outpatient (RCR) | payer MEDICARE, OTHER, SELFPAY ==
[2017-11-06 10:25] VITALS: BMI 37.2
[2019-09-05 18:38] VITALS: BMI 39.8
[2019-09-14 08:58] VITALS: BP 125/85; PULSE 63; RESP 22; TEMP 36.4; BMI 39.8
--- NOTE | 2019-09-14 11:08 | PCM.WC.HP ---
(1) Ulcer of right lower extremity with fat layer exposed Status: Chronic Code(s): L97.912 - Non-pressure chronic ulcer of unspecified part of right lower leg with fat layer exposed (2) Cellulitis of right leg Status: Resolved Code(s): L03.115 - Cellulitis of right lower limb (3) Localized edema Status: Chronic Code(s): R60.0 - Localized edema (4) Other hereditary and idiopathic neuropathies Status: Chronic Code(s): G60.8 - Other hereditary and idiopathic neuropathies History of Present Illness Date of Service: 09/18/19 Chief Complaint: Chronic right lower extremity swelling and edema, chronic venous insufficiency, postphlebitic syndrome with inflammation History of Wound: This is a 73-year-old white male with multiple comorbidities was seen wound healing center today for right leg ulcer with the onset of the past 3 weeks. He was initially seen while he was admitted the hospital for a congestive heart failure exacerbation. Concurrently he was treated for a contralateral left foot fifth metatarsal fracture. Concurrently he was also treated for right lower extremity cellulitis and swelling. He has 1 day left of the oral antibiotics. He denies current fever, chill, nausea, vomiting. He denies redness or odor. He has been changing the dressing at home with a silver product and is been trying to wear an Terry wrap. He denies odor and thinks the ulcer site is getting smaller. He denies distinct ulcer pain. He does have rest of burning and tingling at night and has trouble keeping his legs elevated for an extended period of time. Past Medical History Past Medical History: Chronic Problems (Last Reviewed 01/28/19 @ 09:[address] Johan Perry MD) Ulcer of right lower extremity with fat layer exposed (Chronic) Other hereditary and idiopathic neuropathies (Chronic) Ulcer of right lower extremity with fat layer exposed (Chronic) Localized edema (Chronic) Walking difficulty due to ankle and foot (Chronic) Atherosclerotic heart disease of [place] coronary artery with other forms of angina pectoris (Chronic) ZSO-Lgtxl-Mtc Cx; PCI-Cutting Balloon Angioplasty of ISR-ostium of prox lat CX 11/22/02; PCI-stent to proximal OM 01/2008; PCI- OOV-EMK-Ldax OM 12/15/13;LHC w/FFR of LAD, D1, LCx 05/30/2016 Old inferior wall myocardial infarction (Chronic) Ischemic cardiomyopathy (Chronic) History of coronary artery stent placement (Chronic 12/15/14) RPP-[id number]-OJ0; PCI-Cutting Balloon Angioplasty of ISR-ostium of prox OM1 11/22/02; PCI-stent to proximal OM1 01/2008; PCI- NAA-LMP-Glpo OM1 w/ 2.5 x 12 mm Promus Premier 12/15/14 History of implantable cardiac defibrillator (ICD) (Chronic 11/19/17) 11/23/2002, Generator change 2017 Acute systolic (congestive) heart failure (Chronic) Paroxysmal atrial flutter (Chronic) Nonsustained ventricular tachycardia (Chronic) Hyperlipidemia (Chronic) Past Medical History: Congestive heart failure, neuropathy, lower extremity edema Surgical History: - Allergies/Adverse Reactions: Allergies ceftriaxone sodium [From Rocephin] Allergy (Verified 09/14/19 09:22) Rash milk Adverse Reaction (Verified 09/14/19 09:22) Diarrhea morphine Adverse Reaction (Verified 09/14/19 09:22) hallucinations Home Medications: Ambulatory Orders Medication Instructions Recorded Clopidogrel Bisulfate [Plavix] 75 mg PO DAILY 12/04/14 Insulin Lispro [Humalog] 20 unit SQ TIDCM 08/25/17 Lisinopril [Zestril] 20 mg PO DAILY 08/25/17 carvedilol 6.25 mg tablet 6.25 mg PO BID #180 tab 10/11/18 Aspirin E.C. [Ecotrin] 81 mg PO DAILY@0800 11/17/18 Latanoprost 1 drp EACH EYE QHS 11/17/18 Warfarin Sodium 6 mg PO SUTUTHSA 11/17/18 Colestipol Tablet [Colestid Tablet] 1 gm PO BID 12/02/18 Fenofibrate Nanocrystallized 145 mg PO DAILY 12/02/18 [Tricor] Insulin NPH Human Isophane 32 units SQ BID 12/02/18 [Humulin N Vial] Ranolazine [Ranexa] 1,000 mg PO BID 12/02/18 Furosemide [Lasix] 40 mg PO BID #60 tab 12/06/18 Nitroglycerin (INPATIENT USE) 0.4 mg SUBLINGUAL Q5M PRN #1 bottle 12/06/18 [Nitrostat] spironolactone 25 mg tablet 25 mg PO DAILY #90 tab 12/16/18 amiodarone 200 mg tablet 200 mg PO DAILY #90 tab 01/06/19 trazodone 50 mg tablet 50 mg PO QHS tab 01/28/19 pantoprazole 40 mg tablet,delayed 40 mg PO DAILY #90 tab 04/27/19 release isosorbide mononitrate 60 mg 60 mg PO DAILY #90 tab 05/10/19 tablet,extended release 24 hr rosuvastatin 40 mg tablet 40 mg PO QHS #90 tab 06/27/19 Ropinirole HCl [Requip] 0.5 mg PO DAILY 09/05/19 Warfarin Sodium [Jantoven] 3 mg PO MOWEFR 09/05/19 Cephalexin [Keflex] 500 mg PO Q12 #10 cap 09/08/19 - Family History Maternal Family History: Family History (Last Reviewed 01/28/19 @ 09:[address] Johan Perry MD) Father Prostate cancer Mother CVA (cerebral vascular accident) Sister Congestive heart failure Diabetes Hypertension Hyperlipidemia Atrial fibrillation CAD (coronary artery disease) Cardiac defibrillator in situ Sister Breast cancer Sister Breast cancer Brother CAD (coronary artery disease) Myocardial infarction Diabetes Brother Diabetes Brother COPD (chronic obstructive pulmonary disease) Sister Alive and well Stroke - CVA, age 80. Paternal Family History: Family History (Last Reviewed 01/28/19 @ 09:[address] Johan Perry MD) Father Prostate cancer Mother CVA (cerebral vascular accident) Sister Congestive heart failure Diabetes Hypertension Hyperlipidemia Atrial fibrillation CAD (coronary artery disease) Cardiac defibrillator in situ Sister Breast cancer Sister Breast cancer Brother CAD (coronary artery disease) Myocardial infarction Diabetes Brother Diabetes Brother COPD (chronic obstructive pulmonary disease) Sister Alive and well Cancer - Prostate CA, 78 y/o. Sibling Family History: Family History (Last Reviewed 01/28/19 @ 09:[address] Johan Perry MD) Father Prostate cancer Mother CVA (cerebral vascular accident) Sister Congestive heart failure Diabetes Hypertension Hyperlipidemia Atrial fibrillation CAD (coronary artery disease) Cardiac defibrillator in situ Sister Breast cancer Sister Breast cancer Brother CAD (coronary artery disease) Myocardial infarction Diabetes Brother Diabetes Brother COPD (chronic obstructive pulmonary disease) Sister Alive and well Diabetes Smoking Status: Former smoker Review of Systems Constitutional: Denies: Chills, Fever HEENT: Denies: Sore Throat Cardiovascular: Reports: Orthopnea. Denies: Chest Pain, Claudication Respiratory: Denies: Cough Gastrointestinal: Denies: Nausea, Vomiting Musculoskeletal: Denies: Leg Pain Skin: Reports: Wounds Neurological: Reports: Numbness - Physical Exam Vital Signs Temp Pulse Resp BP 97.5 F L 63 22 H 125/85 H 09/14/19 08:58 09/14/19 08:58 09/14/19 08:58 09/14/19 08:58 General: Alert, Oriented x3, Cooperative HEENT: Atraumatic Extremities: No cyanosis, Capillary Refill Less than 3 Seconds, No Calf Tenderness - Negative Jaiden and Mejia signs bilateral, Diminished Peripheral Pulses - Faint palpable DP pulses bilateral Skin: Ulcer/ Wound - No purulence, erythema, streaking, odor, infection. The skin discontinuity to his right anterior leg is significantly decreased in size compared to his last hospital admission. It is also granular and healthy and bleeding. The adjacent skin is hairless atrophic with some hyperpigmentation and varicosities. The ulcer to the anterior part of his ankle and foot are fully epithelialized and healed. There is no maceration. Wound Measurements and Assessment WC - Nurse 1 - General Ulcer Measurement Start: 09/14/19 08:54 Freq: Status: Active Protocol: Activity Type Activity Date Activity User E-Sign Co-Sign Detail Recorded Client Recorded Date Recorded By Document 09/14/19 08:58 [id number] 09/14/19 09:19 DL 09/14/19 08:58 Wound Center Nurse 1 [Ulcer Assessment] #2 R Shah -Current Size (cm) - Length 1.8 -Current Size (cm) - Width 1.3 -Current Size (cm) - Depth 0.1 -Total Square Cm 2.34 -Photo Taken Yes -Exudate Amt Small -Exudate Type Serosanguineous -Wound Margin Distinct, Outline Attached -Granulation Amt Large (67-100%) -Granulation Quality [place] -Necrosis Amt Small (1-33%) -Necrotic Tissue Type Adherent Slough -Structure Exposed N/A -Texture (Faviola-wound Skin Appearance) Scarring -Moisture (Faviola-wound Skin Appearance Dry/Scaly ) -Color (Faviola-wound Skin Appearance) Hemosiderin Staining -Temperature (Faviola-wound Skin No Abnormality Appearance) (Pt Warm) -Tenderness on Palpation (Faviola-wound Yes Skin Appearance) -Ulcer Cleansing Rinsed/ Irrigated with Saline -Foul Odor after Cleansing No -Anesthetic Used 4% Lidocaine Solution [Edema Assessment] -Right Calf (cm) 43.5 -Right Ankle (cm) 23.4 -Left Calf (cm) 36.5 -Left Ankle (cm) 18.5 - Nurse 2 - General Ulcer CM Notes Start: 09/14/19 08:54 Freq: Status: Active Protocol: Activity Type Activity Date Activity User E-Sign Co-Sign Detail Recorded Client Recorded Date Recorded By Document 09/14/19 09:47 DL [id number] 09/14/19 09:49 DL 09/14/19 09:47 Wound Center Nurse 2 [Procedure/Treatment] #2 R Shah -Time 09:48 -Correct Patient Yes -Correct Side, Site, Position Yes -Correct Procedure Yes -Procedure Performed Yes -Type of Procedure Debridement -Clinical Debridement Subcutaneous -Post Debridement Size (cm) - Length 1.9 -Post Debridement Size (cm) - Width 1.5 -Post Debridement Size (cm) - Depth 0.1 -Total Square Cm 2.85 -Wound/Ulcer Outcome Not Healed -Ulcer Cleansing Rinsed/ Irrigated with Saline -Foul Odor after Cleansing No -Bioengineered Tissue No -Bleeding Controlled with Pressure -Offloading No -Treatment Response Procedure Tolerated Well [See Physician Procedure note for Specifics] Pain Scale: 0-10 Numeric [Pain] -Is Patient Pain Free? Yes Musculoskeletal: Muscle Wasting, Tenderness - Mild tenderness with palpation and debridement of the ulcer site in the right leg, - - Compartments are soft to palpate right leg and foot Neurological: - - Altered sensation light touch Psych/Mental Status: Normal Affect, Appropriate Debridement Note Post-Debridement Measurements/Treatment - Nurse 2 - General Ulcer CM Notes Start: 09/14/19 08:54 Freq: Status: Active Protocol: Activity Type Activity Date Activity User E-Sign Co-Sign Detail Recorded Client Recorded Date Recorded By Document 09/14/19 09:47 DL [id number] 09/14/19 09:49 DL 09/14/19 09:47 Wound Center Nurse 2 #2 R Shah -Time 09:48 -Correct Patient Yes -Correct Side, Site, Position Yes -Correct Procedure Yes -Procedure Performed Yes -Type of Procedure Debridement -Clinical Debridement Subcutaneous -Post Debridement Size (cm) - Length 1.9 -Post Debridement Size (cm) - Width 1.5 -Post Debridement Size (cm) - Depth 0.1 -Total Square Cm 2.85 -Wound/Ulcer Outcome Not Healed -Ulcer Cleansing Rinsed/ Irrigated with Saline -Foul Odor after Cleansing No -Bioengineered Tissue No -Bleeding Controlled with Pressure -Offloading No -Treatment Response Procedure Tolerated Well Pain Scale: 0-10 Numeric Is Patient Pain Free? Yes Wound debrided: anterior leg Laterality: Right Type of Debridement: Excisional debridement Anesthesia Used: 5% Lidocaine Gel Depth: in the subcutaneous layer Percentage of wound debrided: 100 Instrument Used: #15 blade Tissue Removed: fibrous, devitalized subcutaneous, biofilm, slough Severity: Fat Layer Exposed Amount of bleeding with debridement: Mild Bleeding Controlled with: Pressure Patient tolerated procedure well Assessment/Plan Assessment: Right leg ulcer with fat layer exposed. Cellulitis resolved right leg. Lower extremity edema. Venous insufficiency. Congestive heart failure history noted. Neuropathy Plan: I reviewed and discussed his case. Subcutaneous excisional debridement was performed to the right leg as noted in the clinical panel. To wash gently with soap and water with daily dressing changes of [employer]. Tubigrip was applied for compression management. To intermittently elevate on an hourly basis to control edema and to avoid idle standing or sitting. To avoid excessive salt intake in his diet as well. His venous duplex Doppler was reviewed from 09-05-2019 which did not demonstrate any DVT or deep venous incompetence. His prior venous studies are reviewed demonstrating venous insufficiency with incompetency bilateral lower extremity. Demonstrating pretty good healing progression over the past week. If this is limited at future follow-up updating this exam and updating his noninvasive arterial studies will also be considered. He is also complaining of neuropathy and I recommend metanx to help repair the small nerve fibers. A prescription was provided. He was advised to follow-up with his primary care physician for consideration of starting gabapentin again as well. To optimize a well-balanced diet to improve healing. His labs and x-rays from his recent hospital admission were reviewed. Is also noted he had a prior culture performed in the hospital and his local signs of infection have basically resolved. I do not recommend additional antibiotics. I answered all his questions. To follow-up at the wound healing center in 1 week or call sooner if he has any questions or concerns. . 2019 karrie winn. Reviewed today: Medications and allergies reviewed and reconciled. Reviewed 09-14-2019: Body mass index is above normal. She was advised to follow-up with primary care physician. He was counseled on diet and activity modifications to optimize health weight, and blood pressure. His blood pressure is elevated at 125/85. He is a current nontobacco user. He denies falling within the past year. His influenza immunization was up-to-date.
--- NOTE | 2019-09-29 08:32 | WC ---
This AM, September 29, 2019, the center received a VM from Moy (a [facility] nurse), regarding orders and supplies for this patient. She requested the physician orders to be refaxed and wanted to know what kind of dressing needed to be ordered. She also asked if we received a fax confirmation since she claimed the order was not received. I stated we did with the understanding that the confirmation was only validating the order went out and not validating that the order was received by the 911 emergency services dispatcher. Order was refaxed as requested and I let her know the patient needed a 3M2L dressing for his RLE. She asked if we gave the patient supplies to take home and with the answer being no, she stated she now did not know what to do. I informed her that the wound center does not give supplies unless it is imperative the patient will need a dressing change before their order for supplies is received. She sharply came back with she will just have to go to the hospital then if we were not going to help.
== END 2019-09-27 23:59 ==
LOC: WC 08:35
PROVIDERS: PCP Family Medicine; Visit Provider Podiatrist
DX: I87.2 Venous insufficiency (chronic) (peripheral) (principal); L97.812 Non-pressure chronic ulcer of other part of right lower leg with fat layer exposed; L03.115 Cellulitis of right lower limb; R60.0 Localized edema; G60.8 Other hereditary and idiopathic neuropathies; I11.0 Hypertensive heart disease with heart failure; I50.9 Heart failure, unspecified; I25.10 Atherosclerotic heart disease of native coronary artery without angina pectoris; I25.2 Old myocardial infarction; E78.5 Hyperlipidemia, unspecified; Z79.899 Other long term (current) drug therapy; Z79.82 Long term (current) use of aspirin; Z79.02 Long term (current) use of antithrombotics/antiplatelets; Z79.01 Long term (current) use of anticoagulants; Z87.891 Personal history of nicotine dependence
CPT/HCPCS: 11042; 99213; G0463

== ENCOUNTER → 2019-09-27 10:51 | Outpatient (CLI) | payer MEDICARE, OTHER, SELFPAY ==
[2017-11-06 10:25] VITALS: BMI 37.2
[2019-09-14 08:58] VITALS: BMI 39.8
[2019-09-27 10:56] LABS: Bacteria 0 SEEN /hpf (None Seen); Mucous, Urine 0 SEEN /hpf (<or=2+); Squamous Epithelial Cells - UA 0 SEEN /hpf (0-5); White Blood Cells 0 SEEN /hpf (0-5)
[2019-09-27 11:00] LABS: Color, Urine Straw (Yellow); Glucose, Dipstick Normal (Normal); Ketone-Dipstick Negative (Negative); Leukocyte Esterase-Dipstick Negative /ul (Negative); Nitrite-Dipstick Negative (Negative); Occult Blood-Urine 50 /ul (Negative); Protein-Dipstick Negative (Negative); Urine Bilirubin Dipstick Negative (Negative); Urine Clarity Clear (Clear); Urine Urobilinogen Normal (Normal)
[2019-09-27 11:05] LABS: Red Blood Cells-Urine 0-5 SEEN /hpf (0-5)
== END ==
PROVIDERS: PCP Family Medicine; Referring Provider Family Medicine; Visit Provider Family Medicine
DX: R30.0 Dysuria (principal)
CPT/HCPCS: 81001

== ENCOUNTER 2019-10-05 13:00 | Outpatient (RCR) | payer MEDICARE, OTHER, SELFPAY ==
[2017-11-06 10:25] VITALS: BMI 37.2
[2019-09-28 00:37] VITALS: BP 125/85; PULSE 63; RESP 22; TEMP 36.4
[2019-09-28 10:41] VITALS: BP 151/79; PULSE 71; RESP 18; TEMP 36.5; BMI 39.8
[2019-09-28 11:28] VITALS: BMI 39.8
--- NOTE | 2019-09-28 16:51 | PN.PCM_ITS ---
(1) Ulcer of right lower extremity with fat layer exposed Status: Chronic Current Visit: Yes Code(s): L97.912 - Non-pressure chronic ulcer of unspecified part of right lower leg with fat layer exposed (2) Other specified peripheral vascular diseases Status: Acute Current Visit: Yes Code(s): I73.89 - Other specified peripheral vascular diseases (3) Cellulitis of right leg Status: Resolved Current Visit: Yes Code(s): L03.115 - Cellulitis of right lower limb (4) Other hereditary and idiopathic neuropathies Status: Chronic Current Visit: Yes Code(s): G60.8 - Other hereditary and idiopathic neuropathies (5) Localized edema Status: Chronic Current Visit: Yes Code(s): R60.0 - Localized edema (6) Nondisp fracture of fifth left metatarsal bone with routine healing Status: Chronic Current Visit: Yes Qualifiers: Fracture type: closed Qualified Code(s): S92.355D - Nondisplaced fracture of fifth metatarsal bone, left foot, subsequent encounter for fracture with routine healing Code(s): S92.355D - Nondisplaced fracture of fifth metatarsal bone, left foot, subsequent encounter for fracture with routine healing (7) Walking difficulty due to ankle and foot Status: Chronic Current Visit: Yes Code(s): R26.2 - Difficulty in walking, not elsewhere classified Type of Wound Date of Service: 09/28/19 Chief Complaint: Chronic right lower extremity swelling and edema, chronic venous insufficiency, postphlebitic syndrome with inflammation History of Wound: This is a 73-year-old white male with multiple comorbidities was seen wound healing center today for right leg ulcer. He was initially seen while he was admitted the hospital for a congestive heart failure exacerbation. Concurrently he was treated for a contralateral left foot fifth metatarsal fracture. Concurrently he was also treated for right lower extremity cellulitis and swelling. He completed the full course of oral antibiotics. He denies current fever, chill, nausea, vomiting. He denies redness or odor. He has been changing the dressing at home with a silver product and is been trying to wear an Terry wrap. He denies odor and thinks the ulcer site is getting smaller. He denies distinct ulcer pain. He does have rest of burning and tingling at night and has trouble keeping his legs elevated for an extended period of time. He does not walk a lot and is unable to tell me if he has claudication symptoms. Progress of Wound: Improving in wound quality and reduction in with his significant - Physical Exam Vital Signs Temp Pulse Resp BP 97.7 F L 71 18 151/79 H 09/28/19 10:41 09/28/19 10:41 09/28/19 10:41 09/28/19 10:41 General: Alert, Oriented x3, Cooperative, No apparent distress Extremities: No cyanosis, Capillary Refill Less than 3 Seconds, No Calf Tenderness, Diminished Peripheral Pulses, Edema Skin: Ulcer/ Wound - No purulence, erythema, streaking, odor, infection. The peripheral skin is hairless, atrophic, hypopigmented and dry. No bogginess or fluctuance on palpation Wound Measurements and Assessment WC - Nurse 1 - General Ulcer Measurement Start: 09/28/19 10:41 Freq: Status: Active Protocol: Activity Type Activity Date Activity User E-Sign Co-Sign Detail Recorded Client Recorded Date Recorded By Document 09/28/19 10:41 BS [id number] 09/28/19 10:47 BS 09/28/19 10:41 Wound Center Nurse 1 [Ulcer Assessment] #2 R Shah -Combined with other wound No -Current Size (cm) - Length 2.7 -Current Size (cm) - Width 0.5 -Current Size (cm) - Depth 0.1 -Total Square Cm 1.35 -Photo Taken No -Granulation Quality Red -Texture (Faviola-wound Skin Appearance) Assessed, Localized Edema -Moisture (Faviola-wound Skin Appearance Assessed,Dry/ ) Scaly -Color (Faviola-wound Skin Appearance) Assessed, Hemosiderin Staining -Temperature (Faviola-wound Skin No Abnormality Appearance) (Pt Warm) -Tenderness on Palpation (Faviola-wound No Skin Appearance) -Ulcer Cleansing Soap and water -Foul Odor after Cleansing No -Anesthetic Used 4% Lidocaine Solution [Edema Assessment] -Lower Limb Edema Present Yes -Right Calf (cm) 47.0 -Right Ankle (cm) 23.0 -Left Calf (cm) 38.5 -Left Ankle (cm) 20.3 CHERISE - Nurse 2 - General Ulcer CM Notes Start: 09/28/19 10:41 Freq: Status: Active Protocol: Activity Type Activity Date Activity User E-Sign Co-Sign Detail Recorded Client Recorded Date Recorded By Document 09/28/19 11:00 [id number] 09/28/19 11:05 JF 09/28/19 11:00 Wound Center Nurse 2 [Procedure/Treatment] #2 R Shah -Time 11:05 -Correct Patient Yes -Correct Side, Site, Position Yes -Correct Procedure Yes -Procedure Performed Yes -Type of Procedure Debridement -Clinical Debridement Subcutaneous -Post Debridement Size (cm) - Length 2.8 -Post Debridement Size (cm) - Width 0.5 -Post Debridement Size (cm) - Depth 0.1 -Total Square Cm 1.40 -Wound/Ulcer Outcome Not Healed -Ulcer Cleansing Rinsed/ Irrigated with Saline -Foul Odor after Cleansing No -Bioengineered Tissue No -Bleeding Controlled with Pressure -Offloading No -Treatment Response Procedure Tolerated Well [See Physician Procedure note for Specifics] Pain Scale: 0-10 Numeric [Pain] -Is Patient Pain Free? Yes Musculoskeletal: No Tenderness to Palpation of Joints or Extremities, Muscle Wasting, - - Pain on palpation is decreased but continued to his left fifth metatarsal fracture Neurological: - - Altered sensation to light touch Psych/Mental Status: Normal Affect, Appropriate Debridement Note Post-Debridement Measurements/Treatment WC - Nurse 2 - General Ulcer CM Notes Start: 09/28/19 10:41 Freq: Status: Active Protocol: Activity Type Activity Date Activity User E-Sign Co-Sign Detail Recorded Client Recorded Date Recorded By Document 09/28/19 11:00 [id number] 09/28/19 11:05 JF 09/28/19 11:00 Wound Center Nurse 2 #2 R Shah -Time 11:05 -Correct Patient Yes -Correct Side, Site, Position Yes -Correct Procedure Yes -Procedure Performed Yes -Type of Procedure Debridement -Clinical Debridement Subcutaneous -Post Debridement Size (cm) - Length 2.8 -Post Debridement Size (cm) - Width 0.5 -Post Debridement Size (cm) - Depth 0.1 -Total Square Cm 1.40 -Wound/Ulcer Outcome Not Healed -Ulcer Cleansing Rinsed/ Irrigated with Saline -Foul Odor after Cleansing No -Bioengineered Tissue No -Bleeding Controlled with Pressure -Offloading No -Treatment Response Procedure Tolerated Well Pain Scale: 0-10 Numeric Is Patient Pain Free? Yes Wound debrided: leg Laterality: Right Type of Debridement: Excisional debridement Anesthesia Used: 5% Lidocaine Gel Depth: in the subcutaneous layer Percentage of wound debrided: 100 Instrument Used: #15 blade Tissue Removed: fibrous, devitalized subcutaneous, biofilm, slough Severity: Fat Layer Exposed Amount of bleeding with debridement: Mild Bleeding Controlled with: Pressure Patient tolerated procedure well Assessment/Plan Active Problems (Last Reviewed 01/28/19 @ 09:[address] Johan Perry MD) Ulcer of right lower extremity with fat layer exposed (Chronic) Other hereditary and idiopathic neuropathies (Chronic) Other specified peripheral vascular diseases (Acute) Localized edema (Chronic) Nondisp fracture of fifth left metatarsal bone with routine healing (Chronic) Walking difficulty due to ankle and foot (Chronic) Assessment: Right leg ulcer with fat layer exposed. Cellulitis resolved right leg. Lower extremity edema. Venous insufficiency. Congestive heart failure history noted. Neuropathy. Left fifth metatarsal fracture from approximately early July 2019 Plan: I reviewed and discussed his case. Subcutaneous excisional debridement was performed to the right leg as noted in the clinical panel. To wash gently with soap and water with daily dressing changes of [employer]. Tubigrip was applied for compression management. To intermittently elevate on an hourly basis to control edema and to avoid idle standing or sitting. To avoid excessive salt intake in his diet as well. His venous duplex Doppler was reviewed from 09-05-2019 which did not demonstrate any DVT or deep venous incompetence. His prior venous studies are reviewed demonstrating venous insufficiency with incompetency bilateral lower extremity. Demonstrating pretty good healing progression over the past week in regards to with reduction and wound bed quality. I would like to apply more aggressive compression therapy such as a 3M 2L. An in clinic ankle-brachial index was performed today with a right level of 1.0 and left of 0.5. Therefore this compression garment was applied to the right lower extremity. I recommend formal vascular's arterial studies and a referral was provided today. I also recommend updating his venous reflux evaluation. We will help him get this scheduled. He is also complaining of neuropathy and I recommend metanx to help repair the small nerve fibers. A prescription was provided previously. He was advised to follow-up with his primary care physician for consideration of starting gabapentin again as well. To optimize a well-balanced diet to improve healing. His labs and x- rays from his recent hospital admission were reviewed. His cellulitis remains resolved and I do not recommend additional antibiotics. He also asked for the next step in his care plan for his contralateral foot fifth metatarsal fracture. I advised him he needs a follow-up with the foot and ankle center for this musculoskeletal injury and not the wound center. I provided him with an up dated x-ray requisition to be can monitor the progress of his fracture site. His injury site is about 8 weeks old and I recommend he maintains a nonweightbearing status in his cam walker boot until I can review this x-ray. I answered all his questions. To follow-up at the wound healing center in 1 to 2 weeks or call sooner if he has any questions or concerns. He will follow-up for nursing visit in the interim. . 2020 macra entry. Reviewed today: Medications and allergies reviewed and reconciled. Reviewed 09-14-2019: Body mass index is above normal. She was advised to follow-up with primary care physician. He was counseled on diet and activity modifications to optimize health weight, and blood pressure. His blood pressure is elevated at 125/85. He is a current nontobacco user. He denies falling within the past yea r. His influenza immunization was up-to-date.
--- NOTE | 2019-10-05 10:32 | ART_ITS ---
Reason For Study: RLE ULCER Procedure A bilateral lower extremity continuous wave Doppler with analog waveform analysis,segmental pressures,and ankle brachial indexes without exercise. Left Segmental Pressures Left brachial= 116mmHg. Left thigh = 108mmHg. Left calf = 107mmHg. Left posterior tibial artery = >255mmHg. Left dorsalis pedis artery = 95mmHg. Left digit = 34 mmHg. Right Segmental Pressures Right brachial= 108mmHg. Right posterior tibial artery = 150mmHg. Right dorsalis pedis artery = 153mmHg. Right digit = 133 mmHg. Indices The right ankle brachial index by the dorsalis pedis is 1.32. The right ankle brachial index by the posterior tibial artery is 1.29. The right digital-brachial index is 1.15. The left ankle brachial index by the dorsalis pedis is 0.82. The left ankle brachial index by the posterior tibial artery is N/C. The left digital-brachial index is 0.29. Interpretation Summary Triphasic Doppler waveforms are noted at ankle level on the right. Biphasic and monophasic Doppler waveforms are noted at ankle level on the left. Pulse-volume recording waveform amplitudes are diminished at calf, ankle, and digital level on the left. The resting right ankle-brachial index is normal. The resting left ankle-brachial index is mildly diminished. The right digital-brachial index is normal. The left digital-brachial index is [id number] diminished. There is no evidence of significant arterial occlusive disease in the right lower extremity. There is evidence of mild impairment of arterial flow at ankle level on the left. There is evidence of [id number]-jp-lwykod impairment of arterial flow at digital level on the left. There appears to be [id number]-[id number] distal, small-vessel arterial occlusive disease at digital level on the left. Ordering Physician: Samaria Ramos Referring Physician: Samaria Ramos Performed By: Ngozi Dillard RVT, RDCS
[2019-10-05 13:13] VITALS: BP 152/87; PULSE 72; RESP 20; TEMP 36.3; BMI 39.8
--- NOTE | 2019-10-05 13:46 | PN.PCM_ITS ---
(1) Ulcer of right lower extremity with fat layer exposed Status: Chronic Current Visit: Yes Code(s): L97.912 - Non-pressure chronic ulcer of unspecified part of right lower leg with fat layer exposed (2) Other specified peripheral vascular diseases Status: Chronic Current Visit: Yes Code(s): I73.89 - Other specified peripheral vascular diseases (3) Cellulitis of right leg Status: Resolved Current Visit: Yes Code(s): L03.115 - Cellulitis of right lower limb (4) Other hereditary and idiopathic neuropathies Status: Chronic Current Visit: Yes Code(s): G60.8 - Other hereditary and idiopathic neuropathies (5) Localized edema Status: Chronic Current Visit: Yes Code(s): R60.0 - Localized edema Type of Wound Date of Service: 10/05/19 Chief Complaint: Chronic right lower extremity swelling and edema, chronic venous insufficiency, postphlebitic syndrome with inflammation History of Wound: This is a 73-year-old white male with multiple comorbidities was seen wound healing center today for right leg ulcer. He was initially seen while he was admitted the hospital for a congestive heart failure exacerbation. Concurrently he was also treated for right lower extremity cellulitis and swelling. He completed the full course of oral antibiotics. He denies current fever, chill, nausea, vomiting. He denies redness or odor. He has home health helping him with dressing changes including a 3M 2L compression garment. Progress of Wound: Improving in wound quality and reduction in with his significant - Physical Exam Vital Signs Temp Pulse Resp BP 97.4 F L 72 20 H 152/87 H 10/05/19 13:13 10/05/19 13:13 10/05/19 13:13 10/05/19 13:13 General: Alert, Oriented x3, Cooperative, No apparent distress Extremities: No cyanosis, Capillary Refill Less than 3 Seconds, No Calf Tenderness - Compartments are soft to palpate. No bogginess or fluctuance on palpation, Diminished Peripheral Pulses, Edema Skin: Ulcer/ Wound - Peripheral epithelialization is noted. The adjacent skin is hairless and atrophic. There is no purulence, erythema, streaking or infection. Wound Measurements and Assessment WC - Nurse 1 - General Ulcer Measurement Start: 09/28/19 10:41 Freq: Status: Active Protocol: Activity Type Activity Date Activity User E-Sign Co-Sign Detail Recorded Client Recorded Date Recorded By Document 07/08/20 13:13 BS [id number] 10/05/19 13:20 BS 10/05/19 13:13 Wound Center Nurse 1 [Ulcer Assessment] #2 R Shah -Combined with other wound No -Current Size (cm) - Length 2.2 -Current Size (cm) - Width 0.7 -Current Size (cm) - Depth 0.1 -Total Square Cm 1.54 -Photo Taken No -Granulation Amt Medium (34-66%) -Granulation Quality Red -Necrosis Amt Small (1-33%) -Necrotic Tissue Type Adherent Slough -Texture (Faviola-wound Skin Appearance) Assessed, Localized Edema ,Scarring -Moisture (Faviola-wound Skin Appearance Assessed,Dry/ ) Scaly -Color (Faviola-wound Skin Appearance) Assessed, Hemosiderin Staining -Temperature (Faviola-wound Skin No Abnormality Appearance) (Pt Warm) -Tenderness on Palpation (Faviola-wound No Skin Appearance) -Ulcer Cleansing Soap and water -Foul Odor after Cleansing No -Anesthetic Used 4% Lidocaine Solution [Edema Assessment] -Lower Limb Edema Present Yes -Right Calf (cm) 42.5 -Point of measurement (cm from the 31.0 medial instep) -Right Ankle (cm) 24.2 -Point of Measurement (cm from the 12.0 medial instep) WC - Nurse 2 - General Ulcer CM Notes Start: 09/28/19 10:41 Freq: Status: Active Protocol: Activity Type Activity Date Activity User E-Sign Co-Sign Detail Recorded Client Recorded Date Recorded By Document 10/05/19 13:27 MW [id number] 10/05/19 13:32 MW 10/05/19 13:27 Wound Center Nurse 2 [Procedure/Treatment] #2 R Shah -Time 13:31 -Correct Patient Yes -Correct Side, Site, Position Yes -Correct Procedure Yes -Procedure Performed Yes -Type of Procedure Debridement -Clinical Debridement Subcutaneous -Post Debridement Size (cm) - Length 2.3 -Post Debridement Size (cm) - Width 0.7 -Post Debridement Size (cm) - Depth 0.1 -Total Square Cm 1.61 -Wound/Ulcer Outcome Not Healed -Ulcer Cleansing Rinsed/ Irrigated with Saline -Foul Odor after Cleansing No -Bioengineered Tissue No -Bleeding Controlled with Pressure -Offloading No -Treatment Response Procedure Tolerated Well [See Physician Procedure note for Specifics] Pain Scale: 0-10 Numeric [Pain] -Is Patient Pain Free? Yes Musculoskeletal: Muscle Wasting Neurological: Sensory exam intact to light touch and pain Psych/Mental Status: Normal Affect, Appropriate Debridement Note Post-Debridement Measurements/Treatment WC - Nurse 2 - General Ulcer CM Notes Start: 09/28/19 10:41 Freq: Status: Active Protocol: Activity Type Activity Date Activity User E-Sign Co-Sign Detail Recorded Client Recorded Date Recorded By Document 09/28/19 11:00 JF [id number] 09/28/19 11:05 JF Document 10/05/19 13:27 MW [id number] 10/05/19 13:32 MW 09/28/19 10/05/19 11:00 13:27 Wound Center Nurse 2 #2 R Shah -Time 11:05 13:31 -Correct Patient Yes Yes -Correct Side, Site, Position Yes Yes -Correct Procedure Yes Yes -Procedure Performed Yes Yes -Type of Procedure Debridement Debridement -Clinical Debridement Subcutaneous Subcutaneous -Post Debridement Size (cm) - Length 2.8 2.3 -Post Debridement Size (cm) - Width 0.5 0.7 -Post Debridement Size (cm) - Depth 0.1 0.1 -Total Square Cm 1.40 1.61 -Wound/Ulcer Outcome Not Healed Not Healed -Ulcer Cleansing Rinsed/ Rinsed/ Irrigated with Irrigated with Saline Saline -Foul Odor after Cleansing No No -Bioengineered Tissue No No -Bleeding Controlled with Pressure Pressure -Offloading No No -Treatment Response Procedure Procedure Tolerated Well Tolerated Well Pain Scale: 0-10 Numeric Is Patient Pain Free? Yes Yes Wound debrided: anterior leg Laterality: Right Type of Debridement: Excisional debridement Anesthesia Used: 5% Lidocaine Gel Depth: in the subcutaneous layer Percentage of wound debrided: 100 Instrument Used: #15 blade Tissue Removed: fibrous, devitalized subcutaneous, biofilm, slough Severity: Fat Layer Exposed Amount of bleeding with debridement: Mild Bleeding Controlled with: Pressure Patient tolerated procedure well Assessment/Plan Active Problems (Last Reviewed 01/28/19 @ 09:[address] Johan Perry MD) Ulcer of right lower extremity with fat layer exposed (Chronic) Other hereditary and idiopathic neuropathies (Chronic) Other specified peripheral vascular diseases (Chronic) Localized edema (Chronic) Nondisp fracture of fifth left metatarsal bone with routine healing (Chronic) Walking difficulty due to ankle and foot (Chronic) Assessment: Right leg ulcer with fat layer exposed. Cellulitis resolved right leg. Lower extremity edema. Peripheral vascular disease. Venous insufficiency. Congestive heart failure history noted. Neuropathy. Left fifth metatarsal fracture from approximately early July 2019 Plan: I reviewed and discussed his case. Subcutaneous excisional debridement was performed to the right leg as noted in the clinical panel. To wash gently with soap and water with daily dressing changes of Aquacel Ag. 3M2L was applied for compression management. To intermittently elevate on an hourly basis to control edema and to avoid idle standing or sitting. To avoid excessive salt intake in his diet as well. His venous duplex Doppler was reviewed from 09-05-2019 which did not demonstrate any DVT or deep venous incompetence. His prior venous studies are reviewed demonstrating venous insufficiency with incompetency bilateral lower extremity. Demonstrating pretty good healing progression over the past week in regards to with reduction and wound bed quality. I recommend formal vascular's arterial studies. His noninvasive vascular studies were reviewed and this is consistent with some noncompressible vessels. The waveforms at the ankle are by and triphasic. The right BERNARDINO is 1. 32 and left and 0.82. The right digital brachial index is 1.15 and left is 0.29. Vascular referral be considered if the ulcer does not continue to make progress or if claudication comes apparent. To optimize a well-balanced diet to improve healing. His labs and x-rays from his recent hospital admission were reviewed. His cellulitis remains resolved and I do not recommend additional antibiotics. He will follow-up with the foot and ankle center for left metatarsal fracture and he continues to wear the cam walker boot. I answered all his questions. To follow-up at the wound healing center in 1 to 2 weeks or call sooner if he has any questions or concerns. . 2019 macra entry. Reviewed today: Medications and allergies reviewed and reconciled. Reviewed 09-14-2019: Body mass index is above normal. She was advised to follow-up with primary care physician. He was counseled on diet and activity modifications to optimize health weight, and blood pressure. His blood pressure is elevated at 125/85. He is a current nontobacco user. He denies falling within the past year. His influenza immunization was up-to-date.
[2019-10-19 10:15] VITALS: BP 132/71; PULSE 86; RESP 22; TEMP 36.6; BMI 39.8
--- NOTE | 2019-10-19 13:15 | PCM.WC.PN ---
(1) Ulcer of right lower extremity with fat layer exposed Status: Chronic Code(s): L97.912 - Non-pressure chronic ulcer of unspecified part of right lower leg with fat layer exposed (2) Other specified peripheral vascular diseases Status: Chronic Code(s): I73.89 - Other specified peripheral vascular diseases (3) Other hereditary and idiopathic neuropathies Status: Chronic Code(s): G60.8 - Other hereditary and idiopathic neuropathies (4) Localized edema Status: Chronic Code(s): R60.0 - Localized edema (5) Xerosis cutis Status: Chronic Code(s): L85.3 - Xerosis cutis Type of Wound Date of Service: 10/19/19 Chief Complaint: Chronic right lower extremity swelling and edema, chronic venous insufficiency, postphlebitic syndrome with inflammation History of Wound: This is a 73-year-old white male with multiple comorbidities was seen wound healing center today for right leg ulcer. He was initially seen while he was admitted the hospital for a congestive heart failure exacerbation. Concurrently he was also treated for right lower extremity cellulitis and swelling. He completed the full course of oral antibiotics. He denies current fever, chill, nausea, vomiting. He denies redness or odor. He has home health helping him with dressing changes including a 3M 2L compression garment. His leg skin is very dry and he reports his nurse has been applying a lotion with dressing changes and he does not know exactly what type it is. Progress of Wound: Improving in wound quality and reduction - Physical Exam Vital Signs Temp Pulse Resp BP 97.8 F 86 22 H 132/71 H 10/19/19 10:15 10/19/19 10:15 10/19/19 10:15 10/19/19 10:15 General: Alert, Oriented x3, Cooperative, No apparent distress Extremities: No cyanosis, Capillary Refill Less than 3 Seconds, No Calf Tenderness, Diminished Peripheral Pulses, Edema - Decreased Skin: Ulcer/ Wound - No purulence, erythema, streaking, odor, infection. His skin is dry and he is cracking with some excoriations bilateral. He has some hyperpigmentation to the legs as well Wound Measurements and Assessment WC - Nurse 1 - General Ulcer Measurement Start: 09/28/19 10:41 Freq: Status: Active Protocol: Activity Type Activity Date Activity User E-Sign Co-Sign Detail Recorded Client Recorded Date Recorded By Document 10/19/19 10:15 [email or web address] [id number] 10/19/19 10:28 DL 10/19/19 10:15 Wound Center Nurse 1 [Ulcer Assessment] #3 L Shah -Current Size (cm) - Length 2 -Current Size (cm) - Width 0.6 -Current Size (cm) - Depth 0.1 -Total Square Cm 1.2 -Photo Taken Yes -Classification - Thickness Partial Thickness -Exudate Amt Small -Exudate Type Serosanguineous -Wound Margin Distinct, Outline Attached -Granulation Amt Large (67-100%) -Granulation Quality Pale,[place] -Necrosis Amt Small (1-33%) -Necrotic Tissue Type Adherent Slough -Texture (Faviola-wound Skin Appearance) Scarring -Moisture (Faviola-wound Skin Appearance Dry/Scaly ) -Color (Faviola-wound Skin Appearance) Hemosiderin Staining -Temperature (Faviola-wound Skin No Abnormality Appearance) (Pt Warm) -Tenderness on Palpation (Faviola-wound No Skin Appearance) -Ulcer Cleansing Wound Cleanser -Foul Odor after Cleansing No -Anesthetic Used 4% Lidocaine Solution #2 R Shah -Current Size (cm) - Length 2.4 -Current Size (cm) - Width 2.5 -Current Size (cm) - Depth 0.1 -Total Square Cm 6.00 -Photo Taken No -Exudate Amt None Present -Wound Margin Flat & Intact -Granulation Amt Large (67-100%) -Granulation Quality Red -Necrosis Amt None Present (0 %) -Structure Exposed N/A -Texture (Faviola-wound Skin Appearance) Scarring -Moisture (Faviola-wound Skin Appearance Dry/Scaly ) -Color (Faviola-wound Skin Appearance) Hemosiderin Staining -Temperature (Faviola-wound Skin No Abnormality Appearance) (Pt Warm) -Ulcer Cleansing Wound Cleanser -Foul Odor after Cleansing No -Anesthetic Used 4% Lidocaine Solution [Edema Assessment] -Right Calf (cm) 42 -Right Ankle (cm) 24.5 -Left Calf (cm) 36.6 -Left Ankle (cm) 22.1 WC - Nurse 2 - General Ulcer CM Notes Start: 09/28/19 10:41 Freq: Status: Active Protocol: Activity Type Activity Date Activity User E-Sign Co-Sign Detail Recorded Client Recorded Date Recorded By Document 10/19/19 10:44 [email or web address] [id number] 10/19/19 10:50 10/19/19 10:44 Wound Center Nurse 2 [Procedure/Treatment] #3 L Shah -Time 10:44 -Correct Patient Yes -Correct Side, Site, Position Yes -Correct Procedure Yes -Procedure Performed Yes -Type of Procedure Debridement -Clinical Debridement Subcutaneous -Post Debridement Size (cm) - Length 2.1 -Post Debridement Size (cm) - Width 0.6 -Post Debridement Size (cm) - Depth 0.1 -Total Square (cm) 1.26 -Wound/Ulcer Outcome Not Healed -Ulcer Cleansing Rinsed/ Irrigated with Saline -Foul Odor after Cleansing No -Bioengineered Tissue No -Bleeding Controlled with Pressure -Offloading No -Treatment Response Procedure Tolerated Well #2 R Shah -Time 10:49 -Correct Patient Yes -Correct Side, Site, Position Yes -Correct Procedure Yes -Procedure Performed Yes -Type of Procedure Debridement -Clinical Debridement Subcutaneous -Post Debridement Size (cm) - Length 2.5 -Post Debridement Size (cm) - Width 2.5 -Post Debridement Size (cm) - Depth 0.1 -Total Square (cm) 6.25 -Wound/Ulcer Outcome Not Healed -Ulcer Cleansing Rinsed/ Irrigated with Saline -Foul Odor after Cleansing No -Bioengineered Tissue No -Bleeding Controlled with Pressure -Other 50% of ulcer debrided today -Offloading No -Treatment Response Procedure Tolerated Well [See Physician Procedure note for Specifics] Musculoskeletal: No Tenderness to Palpation of Joints or Extremities, Muscle Wasting Neurological: Sensory exam intact to light touch and pain Psych/Mental Status: Normal Affect, Appropriate Debridement Note Post-Debridement Measurements/Treatment WC - Nurse 2 - General Ulcer CM Notes Start: 09/28/19 10:41 Freq: Status: Active Protocol: Activity Type Activity Date Activity User E-Sign Co-Sign Detail Recorded Client Recorded Date Recorded By Document 09/28/19 11:00 JF [id number] 09/28/19 11:05 JF Document 10/05/19 13:27 MW [id number] 10/05/19 13:32 MW Document 10/19/19 10:44 [id number] 10/19/19 10:50 09/28/19 10/05/19 10/19/19 11:00 13:27 10:44 Wound Center Nurse 2 #3 L Shah -Time 10:44 -Correct Patient Yes -Correct Side, Site, Position Yes -Correct Procedure Yes -Procedure Performed Yes -Type of Procedure Debridement -Clinical Debridement Subcutaneous -Post Debridement Size (cm) - Length 2.1 -Post Debridement Size (cm) - Width 0.6 -Post Debridement Size (cm) - Depth 0.1 -Total Square (cm) 1.26 -Wound/Ulcer Outcome Not Healed -Ulcer Cleansing Rinsed/ Irrigated with Saline -Foul Odor after Cleansing No -Bioengineered Tissue No -Bleeding Controlled with Pressure -Offloading No -Treatment Response Procedure Tolerated Well #2 R Shah -Time 11:05 13:31 10:49 -Correct Patient Yes Yes Yes -Correct Side, Site, Position Yes Yes Yes -Correct Procedure Yes Yes Yes -Procedure Performed Yes Yes Yes -Type of Procedure Debridement Debridement Debridement -Clinical Debridement Subcutaneous Subcutaneous Subcutaneous -Post Debridement Size (cm) - Length 2.8 2.3 2.5 -Post Debridement Size (cm) - Width 0.5 0.7 2.5 -Post Debridement Size (cm) - Depth 0.1 0.1 0.1 -Total Square (cm) 1.40 1.61 6.25 -Wound/Ulcer Outcome Not Healed Not Healed Not Healed -Ulcer Cleansing Rinsed/ Rinsed/ Rinsed/ Irrigated with Irrigated with Irrigated with Saline Saline Saline -Foul Odor after Cleansing No No No -Bioengineered Tissue No No No -Bleeding Controlled with Pressure Pressure Pressure -Other 50% of ulcer debrided today -Offloading No No No -Treatment Response Procedure Procedure Procedure Tolerated Well Tolerated Well Tolerated Well Pain Scale: 0-10 Numeric Is Patient Pain Free? Yes Yes Wound debrided: leg Laterality: Right Type of Debridement: Excisional debridement Anesthesia Used: 5% Lidocaine Gel Depth: in the subcutaneous layer Percentage of wound debrided: 100 Instrument Used: #15 blade Tissue Removed: fibrous, devitalized subcutaneous , biofilm, slough Severity: Fat Layer Exposed Amount of bleeding with debridement: Mild Bleeding Controlled with: Pressure Patient tolerated procedure well Assessment/Plan Assessment: Right leg ulcer with fat layer exposed. Cellulitis resolved right leg. Lower extremity edema. Peripheral vascular disease. Venous insufficiency. Congestive heart failure history noted. Neuropathy. Left fifth metatarsal fracture from approximately early July 2019 Plan: I reviewed and discussed his case. Subcutaneous excisional debridement was performed to the right leg as noted in the clinical panel. To wash gently with soap and water with daily dressing changes of Aquacel Ag. 3M2L was applied for compression management. To intermittently elevate on an hourly basis to control edema and to avoid idle standing or sitting. To avoid excessive salt intake in his diet as well. His venous duplex Doppler was reviewed from 09-05-2019 which did not demonstrate any DVT or deep venous incompetence. His prior venous studies are reviewed demonstrating venous insufficiency with incompetency bilateral lower extremity. Demonstrating pretty good healing progression over the past week in regards to with reduction and wound bed quality. His progressive xerosis is noted and I recommend that he applies a moisturizing lotion. He reports his nurse has been applying a lotion and he does not recall what type it is. I asked him to call me when he gets home to clarify what he has been putting on the legs. He did call back in and reports his nurse has been applying triamcinolone 0.1% cream. I advised him to discontinue this topical steroid and to use Lac-Hydrin instead with dressing changes. A prescription was sent to his pharmacy. I recommend formal vascular's arterial studies. His noninvasive vascular studies were reviewed and this is consistent with some noncompressible vessels. The waveforms at the ankle are by and triphasic. The right BERNARDINO is 1.32 and left and 0.82. The right digital brachial index is 1.15 and left is 0.29. Vascular referral be considered if the ulcer does not continue to make progress or if claudication comes apparent. To optimize a well-balanced diet to improve healing. His labs and x-rays from his recent hospital admission were reviewed. His cellulitis remains resolved and I do not recommend additional antibiotics. He will follow-up with the foot and ankle center for left metatarsal fracture and he continues to wear the cam walker boot. I answered all his questions. To follow-up at the wound healing center in 1 to 2 weeks or call sooner if he has any questions or concerns. . 2019 macra entry. Reviewed today: Medications and allergies reviewed and reconciled. Reviewed 09-14-2019: Body mass index is above normal. She was advised to follow-up with primary care physician. He was counseled on diet and activity modifications to optimize health weight, and blood pressure. His blood pressure is elevated at 125/85. He is a current nontobacco user. He denies falling within the past year. His influenza immunization was up-to-date.
== END 2019-10-28 23:59 ==
LOC: WC 13:00
PROVIDERS: PCP Family Medicine; Referring Provider Podiatrist; Visit Provider Podiatrist
DX: I73.89 Other specified peripheral vascular diseases (principal); R60.0 Localized edema; G60.8 Other hereditary and idiopathic neuropathies; L97.812 Non-pressure chronic ulcer of other part of right lower leg with fat layer exposed; I87.2 Venous insufficiency (chronic) (peripheral); L85.3 Xerosis cutis
CPT/HCPCS: 11042; 29581; 93923; 99213

== ENCOUNTER 2019-11-23 14:45 | Outpatient (RCR) | payer MEDICARE, OTHER, SELFPAY ==
[2017-11-06 10:25] VITALS: BMI 37.2
[2019-10-27 10:27] VITALS: BMI 39.8
[2019-10-29 00:35] VITALS: BP 132/71; PULSE 86; RESP 22; TEMP 36.6
[2019-11-02 10:13] VITALS: BMI 39.8
[2019-11-02 10:15] VITALS: BP 139/70; PULSE 76; RESP 20; TEMP 36.8; BMI 39.8
--- NOTE | 2019-11-02 10:47 | PCM.WC.PN ---
(1) Corns and callosities Status: Chronic Code(s): L84 - Corns and callosities Comment: left foot (2) Ulcer of right lower extremity with fat layer exposed Status: Chronic Code(s): L97.912 - Non-pressure chronic ulcer of unspecified part of right lower leg with fat layer exposed (3) Other specified peripheral vascular diseases Status: Chronic Code(s): I73.89 - Other specified peripheral vascular diseases (4) Xerosis cutis Status: Chronic Code(s): L85.3 - Xerosis cutis (5) Localized edema Status: Chronic Code(s): R60.0 - Localized edema Type of Wound Date of Service: 11/05/19 Chief Complaint: Chronic right lower extremity swelling and edema, chronic venous insufficiency, postphlebitic syndrome with inflammation History of Wound: This is a 74-year-old white male with multiple comorbidities was seen wound healing center today for right leg ulcer. He denies current fever, chill, nausea, vomiting. He denies redness or odor. He has home health helping him with dressing changes including a 3M 2L compression garment. His leg skin is very dry and he reports his nurse has been applying a lotion with dressing changes. He has been applying lotion with his home health assistance this past week and his skin looks better. He also has for help safely trimming his callus on his left foot that he is unable to perform on his own. He has peripheral vascular disease and lower extremity edema as well. Progress of Wound: Improving in wound quality and reduction - Physical Exam Vital Signs Temp Pulse Resp BP 98.2 F 76 20 H 139/70 H 11/02/19 10:15 11/02/19 10:15 11/02/19 10:15 11/02/19 10:15 General: Alert, Oriented x3, Cooperative, No apparent distress HEENT: Atraumatic Extremities: No cyanosis, Capillary Refill Less than 3 Seconds, No Calf Tenderness, Diminished Peripheral Pulses, Edema Skin: Ulcer/ Wound - No purulence, erythema, streaking, odor, infection. Skin is still dry to lower legs with hyperpigmentation however improvement from last week is noted. His legs are hairless Wound Measurements and Assessment WC - Nurse 1 - General Ulcer Measurement Start: 11/02/19 10:13 Freq: Status: Active Protocol: Activity Type Activity Date Activity User E-Sign Co-Sign Detail Recorded Client Recorded Date Recorded By Document 11/02/19 10:15 DL [id number] 11/02/19 10:24 DL 11/02/19 10:15 Wound Center Nurse 1 [Ulcer Assessment] #3 L Shah -Current Size (cm) - Length 0 -Current Size (cm) - Width 0 -Current Size (cm) - Depth 0 -Total Square Cm 0 -Photo Taken Yes -Exudate Amt None Present -Wound Margin Flat & Intact -Granulation Amt Large (67-100%) -Granulation Quality [place] -Necrosis Amt None Present (0 %) -Structure Exposed N/A -Texture (Faviola-wound Skin Appearance) Scarring -Moisture (Faviola-wound Skin Appearance Dry/Scaly ) -Color (Faviola-wound Skin Appearance) Hemosiderin Staining -Temperature (Faviola-wound Skin No Abnormality Appearance) (Pt Warm) -Tenderness on Palpation (Faviola-wound No Skin Appearance) -Ulcer Cleansing Wound Cleanser #2 R Shah -Current Size (cm) - Length 0.5 -Current Size (cm) - Width 1.8 -Current Size (cm) - Depth 0.1 -Total Square Cm 0.90 -Photo Taken No -Exudate Amt Small -Exudate Type Serosanguineous -Wound Margin Flat & Intact -Granulation Amt Large (67-100%) -Granulation Quality Red -Necrosis Amt Small (1-33%) -Necrotic Tissue Type Adherent Slough -Texture (Faviola-wound Skin Appearance) Scarring -Moisture (Faviola-wound Skin Appearance Dry/Scaly ) -Color (Faviola-wound Skin Appearance) Hemosiderin Staining -Temperature (Faviola-wound Skin No Abnormality Appearance) (Pt Warm) -Tenderness on Palpation (Faviola-wound No Skin Appearance) -Ulcer Cleansing Wound Cleanser -Foul Odor after Cleansing No -Anesthetic Used 4% Lidocaine Solution [Edema Assessment] -Right Calf (cm) 42 -Right Ankle (cm) 25 -Left Calf (cm) 35 -Left Ankle (cm) 20 WC - Nurse 2 - General Ulcer CM Notes Start: 11/02/19 10:13 Freq: Status: Active Protocol: Activity Type Activity Date Activity User E-Sign Co-Sign Detail Recorded Client Recorded Date Recorded By Document 11/02/19 10:42 ANGELA [id number] 11/02/19 10:45 ANGELA 11/02/19 10:42 Wound Center Nurse 2 [Procedure/Treatment] #3 L Shah -Correct Patient No -Correct Side, Site, Position No -Correct Procedure No -Procedure Performed No -Post Debridement Size (cm) - Length 0 -Post Debridement Size (cm) - Width 0 -Post Debridement Size (cm) - Depth 0 -Total Square (cm) 0 -Wound/Ulcer Outcome Healed- Epithelialized #2 R Shah -Time 10:44 -Correct Patient Yes -Correct Side, Site, Position Yes -Correct Procedure Yes -Procedure Performed Yes -Type of Procedure Debridement -Clinical Debridement Subcutaneous -Post Debridement Size (cm) - Length 3.5 -Post Debridement Size (cm) - Width 2 -Post Debridement Size (cm) - Depth 0.1 -Total Square (cm) 7.0 -Wound/Ulcer Outcome Not Healed -Ulcer Cleansing Rinsed/ Irrigated with Saline -Foul Odor after Cleansing No -Bioengineered Tissue No -Bleeding Controlled with Pressure -Offloading No -Treatment Response Procedure Tolerated Well [See Physician Procedure note for Specifics] Pain Scale: 0-10 Numeric [Pain] -Is Patient Pain Free? Yes Musculoskeletal: Muscle Wasting Psych/Mental Status: Normal Affect, Appropriate Debridement Note Post-Debridement Measurements/Treatment WC - Nurse 2 - General Ulcer CM Notes Start: 11/02/19 10:13 Freq: Status: Active Protocol: Activity Type Activity Date Activity User E-Sign Co-Sign Detail Recorded Client Recorded Date Recorded By Document 11/02/19 10:42 ANGELA [id number] 11/02/19 10:45 ANGELA 11/02/19 10:42 Wound Center Nurse 2 #3 L Shah -Correct Patient No -Correct Side, Site, Position No -Correct Procedure No -Procedure Performed No -Post Debridement Size (cm) - Length 0 -Post Debridement Size (cm) - Width 0 -Post Debridement Size (cm) - Depth 0 -Total Square (cm) 0 -Wound/Ulcer Outcome Healed- Epithelialized #2 R Shah -Time 10:44 -Correct Patient Yes -Correct Side, Site, Position Yes -Correct Procedure Yes -Procedure Performed Yes -Type of Procedure Debridement -Clinical Debridement Subcutaneous -Post Debridement Size (cm) - Length 3.5 -Post Debridement Size (cm) - Width 2 -Post Debridement Size (cm) - Depth 0.1 -Total Square (cm) 7.0 -Wound/Ulcer Outcome Not Healed -Ulcer Cleansing Rinsed/ Irrigated with Saline -Foul Odor after Cleansing No -Bioengineered Tissue No -Bleeding Controlled with Pressure -Offloading No -Treatment Response Procedure Tolerated Well Pain Scale: 0-10 Numeric Is Patient Pain Free? Yes Wound debrided: leg Laterality: Left Wound Grade/Stage: grade 1 Anesthesia Used: 5% Lidocaine Gel Depth: in the subcutaneous layer Percentage of wound debrided: 100 Instrument Used: #15 blade Tissue Removed: fibrous, devitalized subcutaneous, biofilm, slough Severity: Fat Layer Exposed Amount of bleeding with debridement: Mild Bleeding Controlled with: Pressure Patient tolerated procedure well Assessment/Plan Assessment: Right leg ulcer with fat layer exposed. Cellulitis resolved right leg. Left foot callus. Lower extremity edema. diabetes (hemoglobin A1C 7.8, self reported from 09/2019 w/ Dr. Chaitanya Keyes). Peripheral vascular disease. Venous insufficiency. Congestive heart failure history noted. Neuropathy. Left fifth metatarsal fracture from approximately early July 2019 Plan: I reviewed and discussed his case. Subcutaneous excisional debridement was performed to the right leg as noted in the clinical panel. To wash gently with soap and water with daily dressing changes of [employer] Ag. 3M2L was applied for compression management. To intermittently elevate on an hourly basis to control edema and to avoid idle standing or sitting. To avoid excessive salt intake in his diet as well. His venous duplex Doppler was reviewed from 09-05-2019 which did not demonstrate any DVT or deep venous incompetence. His prior venous studies are reviewed demonstrating venous insufficiency with incompetency bilateral lower extremity. Demonstrating pretty good healing progression over the past week in regards to with reduction and wound bed quality. His progressive xerosis is noted and I recommend that he continues to apply a moisturizing lotion. I advised him to discontinue this topical steroid and to use Lac-Hydrin instead with dressing changes. A prescription was sent to his pharmacy. I recommend formal vascular's arterial studies. His noninvasive vascular studies were reviewed and this is consistent with some noncompressible vessels. The waveforms at the ankle are by and triphasic. The right BERNARDINO is 1.32 and left and 0.82. The right digital brachial index is 1.15 and left is 0.29. Vascular referral be considered if the ulcer does not continue to make progress or if claudication comes apparent. To optimize a well-balanced diet to improve healing. His labs and x-rays from his recent hospital admission were reviewed. His cellulitis remains resolved and I do not recommend additional antibiotics. His callus on left foot was debrided after verbal consent with a 15 blade scalpel. No incident was performed. He tolerated this well. This is medically necessary his clinical findings and make him at risk for performing this on his own. He will follow-up with the foot and ankle center for left metatarsal fracture and he continues to wear the cam walker boot. I answered all his questions. To follow-up at the wound healing center in 1 to 2 weeks or call sooner if he has any questions or concerns. . 2020 [facility] entry. Reviewed today: Medications and allergies reviewed and reconciled. Reviewed 09-14-2019: Body mass index is above normal. She was advised to follow-up with primary care physician. He was counseled on diet and activity modifications to optimize health weight, and blood pressure. His blood pressure is elevated at 125/85. He is a current nontobacco user. He denies falling within the past year. His influenza immunization was up-to-date.
[2019-11-16 15:34] VITALS: BP 128/66; PULSE 72; RESP 18; TEMP 36.6; BMI 39.8
--- NOTE | 2019-11-16 16:07 | PN.PCM_ITS ---
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 Left foot fracture History of Wound: This is a 74-year-old white male with multiple comorbidities was seen wound healing center today for right leg ulcer. He denies current fever, chill, nausea, vomiting. He denies redness or odor. He has home health helping him with dressing changes including a 3M 2L compression garment. His leg dryness is improving since he has been having lotion applied. He has peripheral vascular disease and lower extremity edema as well. He also has a nonhealing left foot fracture in which she is following at the foot and ankle center. A bone stimulator was recently ordered. Progress of Wound: Improving - Physical Exam Vital Signs Temp Pulse Resp BP 98 F 72 18 128/66 H 11/16/19 15:34 11/16/19 15:34 11/16/19 15:34 11/16/19 15:34 General: Alert, Oriented x3, Cooperative, No apparent distress HEENT: Atraumatic Extremities: No cyanosis, Capillary Refill Less than 3 Seconds, No Calf Tenderness - Negative Jaiden and Mejia sign bilateral, Diminished Peripheral Pulses, Edema Skin: Ulcer/ Wound - No purulence, erythema, streaking, odor, infection. He has significant peripheral epithelialization noted to the right leg ulcer site. The skin is atrophic and hairless with reduced dryness bilateral. There is no skin discontinuity to the left lower extremity. Wound Measurements and Assessment WC - Nurse 1 - General Ulcer Measurement Start: 11/02/19 10:13 Freq: Status: Active Protocol: Activity Type Activity Date Activity User E-Sign Co-Sign Detail Recorded Client Recorded Date Recorded By Document 11/16/19 15:34 RB [id number] 11/16/19 15:35 RB 11/16/19 15:34 Wound Center Nurse 1 [Ulcer Assessment] #2 R Shah -Combined with other wound No -Current Size (cm) - Length 0 -Current Size (cm) - Width 0 -Current Size (cm) - Depth 0 -Total Square Cm 0 -Epithelialization Large 67-100% [Edema Assessment] -Lower Limb Edema Present Yes -Right Calf (cm) 44.5 -Right Ankle (cm) 26.5 WC - Nurse 2 - General Ulcer CM Notes Start: 11/15/19 19:24 Freq: Status: Active Protocol: Activity Type Activity Date Activity User E-Sign Co-Sign Detail Recorded Client Recorded Date Recorded By Document 11/16/19 15:42 [id number] 11/16/19 15:48 11/16/19 15:42 Wound Center Nurse 2 [Procedure/Treatment] 4-left shah -Time 15:47 -Correct Patient No -Correct Side, Site, Position No -Correct Procedure No -Procedure Performed No -Post Debridement (cm) - Length 1.9 -Post Debridement (cm) - Width 1.7 -Post Debridement (cm) - Depth 0.1 -Total Square (Post) (cm) 3.23 -Tunneling No -Undermining/Tunneling No -Circular Undermining No -Wound/Ulcer Outcome Not Healed #2 R Shah -Time 15:43 -Correct Patient Yes -Correct Side, Site, Position Yes -Correct Procedure Yes -Procedure Performed Yes -Type of Procedure Debridement -Clinical Debridement Subcutaneous -Tissue Removed Subcutaneous -Post Debridement (cm) - Length 0.3 -Post Debridement (cm) - Width 0.1 -Post Debridement (cm) - Depth 0.1 -Total Square (Post) (cm) 0.03 -Area of Debridement (cm) - Length 0.3 -Area of Debridement (cm) - Width 0.1 -Total Square (Area) (cm) 0.03 -Tunneling No -Undermining/Tunneling No -Circular Undermining No -Wound/Ulcer Outcome Not Healed -Ulcer Cleansing Rinsed/ Irrigated with Saline -Foul Odor after Cleansing No -Bioengineered Tissue No -Bleeding Controlled with Pressure -Offloading No -Treatment Response Procedure Tolerated Well -Debridement - Subq, 1st 20sq cm Yes [See Physician Procedure note for Specifics] Pain Scale: 0-10 Numeric [Pain] -Is Patient Pain Free? Yes WC - Nurse 3 - General Ulcer D/C NN Start: 11/15/19 19:24 Freq: Status: Active Protocol: Activity Type Activity Date Activity User E-Sign Co-Sign Detail Recorded Client Recorded Date Recorded By Document 11/16/19 15:48 ANGELA [id number] 11/16/19 15:50 JF 11/16/19 15:48 Wound Care Nurse 3 [Wound Dressing] 4-left shah -Ulcer Cleansing Rinsed/ Irrigated with Saline -Foul Odor after Cleansing No -Primary Dressing Applied C Hydrogel ($), NonAdherent Contact Layer -Primary Dressing Covered/Secured Dry Gauze & with Roll Gauze #2 R Shah -Ulcer Cleansing Rinsed/ Irrigated with Saline -Foul Odor after Cleansing No -Primary Dressing Applied C Hydrogel ($), NonAdherent Contact Layer -Primary Dressing Covered/Secured Dry Gauze & with Roll Gauze [Compression Applied] Left -Tubular Bandage Double Layer -Size of Tubigrip Used Size D -Size D ($) 2 Right -Multi-Layered Wrap Application Multi-Layer Comp - Right ($ ) Pain Scale: 0-10 Numeric [Pain] -Is Patient Pain Free? Yes WC - Visit Discharge [Visit Discharge Information] -Discharge Condition Stable -Ambulatory Status Ambulatory -Transportation Private Auto -Accompanied by family member -Medication Reconcilliation completed Yes & provided to patient/care provider -Clinical Summary of Care Provided Yes Musculoskeletal: No Tenderness to Palpation of Joints or Extremities, Muscle Wasting, - - Pain to palpate left fifth metatarsal fracture site Neurological: - - Lack of normal epicritic sensation Psych/Mental Status: Normal Affect, Appropriate Debridement Note Post-Debridement Measurements/Treatment CHERISE - Nurse 2 - General Ulcer CM Notes Start: 11/15/19 19:24 Freq: Status: Active Protocol: Activity Type Activity Date Activity User E-Sign Co-Sign Detail Recorded Client Recorded Date Recorded By Document 11/16/19 15:42 JF [id number] 11/16/19 15:48 11/16/19 15:42 Wound Center Nurse 2 4-left shah -Time 15:47 -Correct Patient No -Correct Side, Site, Position No -Correct Procedure No -Procedure Performed No -Post Debridement (cm) - Length 1.9 -Post Debridement (cm) - Width 1.7 -Post Debridement (cm) - Depth 0.1 -Total Square (Post) (cm) 3.23 -Tunneling No -Undermining/Tunneling No -Circular Undermining No -Wound/Ulcer Outcome Not Healed #2 R Shah -Time 15:43 -Correct Patient Yes -Correct Side, Site, Position Yes -Correct Procedure Yes -Procedure Performed Yes -Type of Procedure Debridement -Clinical Debridement Subcutaneous -Tissue Removed Subcutaneous -Post Debridement (cm) - Length 0.3 -Post Debridement (cm) - Width 0.1 -Post Debridement (cm) - Depth 0.1 -Total Square (Post) (cm) 0.03 -Area of Debridement (cm) - Length 0.3 -Area of Debridement (cm) - Width 0.1 -Total Square (Area) (cm) 0.03 -Tunneling No -Undermining/Tunneling No -Circular Undermining No -Wound/Ulcer Outcome Not Healed -Ulcer Cleansing Rinsed/ Irrigated with Saline -Foul Odor after Cleansing No -Bioengineered Tissue No -Bleeding Controlled with Pressure -Offloading No -Treatment Response Procedure Tolerated Well -Debridement - Subq, 1st 20sq cm Yes Pain Scale: 0-10 Numeric Is Patient Pain Free? Yes - Nurse 3 - General Ulcer D/C NN Start: 11/15/19 19:24 Freq: Status: Active Protocol: Activity Type Activity Date Activity User E-Sign Co-Sign Detail Recorded Client Recorded Date Recorded By Document 11/16/19 15:48 JF [id number] 11/16/19 15:50 11/16/19 15:48 Wound Care Nurse 3 4-left shah -Ulcer Cleansing Rinsed/ Irrigated with Saline -Foul Odor after Cleansing No -Primary Dressing Applied C Hydrogel ($), NonAdherent Contact Layer -Primary Dressing Covered/Secured with Dry Gauze & Roll Gauze #2 R Shah -Ulcer Cleansing Rinsed/ Irrigated with Saline -Foul Odor after Cleansing No -Primary Dressing Applied C Hydrogel ($), NonAdherent Contact Layer -Primary Dressing Covered/Secured with Dry Gauze & Roll Gauze Left -Tubular Bandage Double Layer -Size of Tubigrip Used Size D -Size D ($) 2 Right -Multi-Layered Wrap Application Multi-Layer Comp - Right ($ ) Pain Scale: 0-10 Numeric Is Patient Pain Free? Yes WC - Visit Discharge Discharge Condition Stable Ambulatory Status Ambulatory Transportation Private Auto Accompanied by family member Medication Reconcilliation completed & Yes provided to patient/care provider Clinical Summary of Care Provided Yes Wound debrided: leg Laterality: Right Wound Grade/Stage: Type of Debridement: Excisional debridement Anesthesia Used: 5% Lidocaine Gel Depth: in the subcutaneous layer Percentage of wound debrided: 100 Instrument Used: #15 blade Tissue Removed: fibrous, devitalized subcutaneous, biofilm, slough Severity: Fat Layer Exposed Amount of bleeding with debridement: Mild Bleeding Controlled with: Pressure Patient tolerated procedure well Assessment/Plan Active Problems (Last Reviewed 10/27/19 @ 10:17 by CELESTE Timmons) Ulcer of right lower extremity with fat layer exposed (Chronic) Other specified peripheral vascular diseases (Chronic) Xerosis cutis (Chronic) Corns and callosities (Chronic) left foot 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 Leg edema. diabetes (hemoglobin A1C 7.8, self reported from 09/2019 w/ Dr. Chaitanya Keyes). Peripheral vascular disease. Venous insufficiency. Congestive heart failure history noted. Neuropathy. Left fifth metatarsal fracture from approximately early July 2019, nonhealing Plan: I reviewed and discussed his case. Subcutaneous excisional debridement was performed to the right leg as noted in the clinical panel. To wash gently with soap and water with daily dressing changes of Aquacel Ag. 3M2L was applied for compression management. To intermittently elevate on an hourly basis to control edema and to avoid idle standing or sitting. To avoid excessive salt intake in his diet as well. His venous duplex Doppler was reviewed from 09-05-2019 which did not demonstrate any DVT or deep venous incompetence. His prior venous studies are reviewed demonstrating venous insufficiency with incompetency bilateral lower extremity. He is following with vein specialist, Dr. Truong at this time and he was advised to continue. To continue to apply moisturizing lotion to maintain good skin integrity. I advised him to discontinue this topical steroid and to use Lac-Hydrin instead with dressing changes. A prescription was sent to his pharmacy. I recommend formal vascular's arterial studies. His noninvasive vascular studies were reviewed and this is consistent with some noncompressible vessels. The waveforms at the ankle are by and triphasic. The right BERNARDINO is 1.32 and left and 0.82. The right digital brachial index is 1.15 and left is 0.29. I recommended vascular referral at this time due to ongoing delays in wound healing and also nonhealing of his left metatarsal fracture. He is already established with Dr. Truong and an updated referral was provided to include arterial assessment and intervention was recommended. To optimize a well-balanced diet to improve healing. His labs and x-rays from his recent hospital admission and follow up visits at the foot and ankle center were reviewed. His cellulitis remains resolved and I do not recommend additional antibiotics. His callus on left foot was debrided after verbal consent with a 15 blade scalpel. No incident was performed. He tolerated this well. This is medically necessary his clinical findings and make him at risk for performing this on his own. He will follow-up with the foot and ankle center for left metatarsal fracture and he continues to wear the cam walker boot. I answered all his questions. To follow-up at the wound healing center in 1 to 2 weeks or call sooner if he has any questions or concerns. . [place] [facility] [place] Reviewed today: Medications and allergies reviewed and reconciled. Reviewed 09-14-2019: Body mass index is above normal. She was advised to follow-up with primary care physician. He was counseled on diet and activity modifications to optimize health weight, and blood pressure. His blood pressure is elevated at 125/85. He is a current nontobacco user. He denies falling within the past year. His influenza immunization was up-to-date.
[2019-11-23 14:51] VITALS: BP 138/75; PULSE 76; RESP 16; TEMP 35.9; BMI 39.8
--- NOTE | 2019-11-23 16:06 | PN.PCM_ITS ---
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: Chronic Current Visit: Yes Qualifiers: Fracture type: closed Fracture alignment: nondisplaced Qualified Code(s): S92.355K - Nondisplaced fracture of fifth metatarsal bone, left foot, subsequent encounter for fracture with nonunion Code(s): S92.352K - Displaced fracture of fifth metatarsal bone, left foot, subsequent encounter for fracture with nonunion Comment: left foot (6) Ulcer of left lower extremity with fat layer exposed Status: Acute Current Visit: Yes Code(s): L97.922 - Non-pressure chronic ulc er of unspecified part of left lower leg with fat layer exposed Type of Wound Date of Service: 11/23/19 Chief Complaint: Right leg ulcer healed. new left leg ulcer. Left foot fracture delayed and non healing History of Wound: This is a 74-year-old white male with multiple comorbidities was seen wound healing center today for right leg ulcer. He denies current fever, chill, nausea, vomiting. He has been applying Lac-Hydrin lotion to legs daily with significant improvement in skin integrity. He has peripheral vascular disease and lower extremity edema as well. He also has a new lower leg ulcer to the left shah in which he denies redness or odor. He denies new injuries. He has reached out to the vascular office and relates he is waiting for callback to get scheduled. He also has a nonhealing left foot fracture in which she is following at the foot and ankle center. A bone stimulator was recently ordered. Progress of Wound: Healed right leg. Stable left leg - Physical Exam Vital Signs Temp Pulse Resp BP 96.6 F L 76 16 138/75 H 11/23/19 14:51 11/23/19 14:51 11/23/19 14:51 11/23/19 14:51 General: Alert, Oriented x3, Cooperative, No apparent distress HEENT: Atraumatic Extremities: No cyanosis, Capillary Refill Less than 3 Seconds, No Calf Tenderness, Diminished Peripheral Pulses, Edema Skin: Ulcer/ Wound - No purulence, erythema, string, odor, infection bilateral lower extremities. His skin is hairless and atrophic and there is decreased dryness of skin peeling bilateral. There is full epithelialization noted to the right leg. There is skin discontinuity to the anterior left leg with granular base and no deep tissue necrosis or maceration noted Wound Measurements and Assessment WC - Nurse 1 - General Ulcer Measurement Start: 11/02/19 10:13 Freq: Status: Active Protocol: Activity Type Activity Date Activity User E-Sign Co-Sign Detail Recorded Client Recorded Date Recorded By Document 11/23/19 14:51 [facility] [id number] 11/23/19 15:01 [facility] 11/23/19 14:51 Wound Center Nurse 1 [Ulcer Assessment] 4-left shah -Combined with other wound No -Current Size (cm) - Length 1.4 -Current Size (cm) - Width 1.1 -Current Size (cm) - Depth 0.1 -Total Square Cm 1.54 -Photo Taken No -Epithelialization None Present -Tunneling No -Undermining/Tunneling No -Circular Undermining No -Exudate Amt Small -Exudate Type Serosanguineous -Wound Margin Distinct, Outline Attached -Granulation Amt Small (1-33%) -Granulation Quality Red -Slough/Fibrin Yes -Necrosis Amt Medium (34-66%) -Necrotic Tissue Type Adherent Slough -Texture (Faviola-wound Skin Appearance) Assessed, Scarring -Moisture (Faviola-wound Skin Appearance Assessed,Dry/ ) Scaly -Color (Faviola-wound Skin Appearance) Assessed, Hemosiderin Staining -Temperature (Faviola-wound Skin No Abnormality Appearance) (Pt Warm) -Tenderness on Palpation (Faviola-wound No Skin Appearance) -Ulcer Cleansing soapy water -Foul Odor after Cleansing No -Anesthetic Used 5% Lidocaine Gel #2 R Shah -Combined with other wound No -Current Size (cm) - Length 0.1 -Current Size (cm) - Width 0.1 -Current Size (cm) - Depth 0.1 -Total Square Cm 0.01 -Epithelialization Large 67-100% -Texture (Faviola-wound Skin Appearance) Assessed, Scarring -Moisture (Faviola-wound Skin Appearance Assessed,Dry/ ) Scaly -Color (Faviola-wound Skin Appearance) Assessed, Hemosiderin Staining -Temperature (Faviola-wound Skin No Abnormality Appearance) (Pt Warm) -Tenderness on Palpation (Faviola-wound No Skin Appearance) -Ulcer Cleansing soapy water -Foul Odor after Cleansing No [Edema Assessment] -Lower Limb Edema Present Yes -Right Calf (cm) 42.5 -Right Ankle (cm) 25.7 -Left Calf (cm) 36.6 -Left Ankle (cm) 24 WC - Nurse 2 - General Ulcer CM Notes Start: 11/15/19 19:24 Freq: Status: Active Protocol: Activity Type Activity Date Activity User E-Sign Co-Sign Detail Recorded Client Recorded Date Recorded By Document 11/23/19 15:10 [facility] [id number] 11/23/19 15:14 ANGELA 11/23/19 15:10 Wound Center Nurse 2 [Procedure/Treatment] 4-left shah -Time 15:10 -Correct Patient Yes -Correct Side, Site, Position Yes -Correct Procedure Yes -Procedure Performed Yes -Type of Procedure Debridement -Clinical Debridement Subcutaneous -Tissue Removed Subcutaneous -Post Debridement (cm) - Length 1.2 -Post Debridement (cm) - Width 0.8 -Post Debridement (cm) - Depth 0.1 -Total Square (Post) (cm) 0.96 -Area of Debridement (cm) - Length 1.2 -Area of Debridement (cm) - Width 0.8 -Total Square (Area) (cm) 0.96 -Tunneling No -Undermining/Tunneling No -Circular Undermining No -Ulcer Cleansing Rinsed/ Irrigated with Saline -Foul Odor after Cleansing No -Bioengineered Tissue No -Bleeding Controlled with Pressure -Offloading No -Treatment Response Procedure Tolerated Well -Debridement - Subq, 1st 20sq cm Yes #2 R Shah -Correct Patient No -Correct Side, Site, Position No -Correct Procedure No -Procedure Performed No -Post Debridement (cm) - Length 0 -Post Debridement (cm) - Width 0 -Post Debridement (cm) - Depth 0 -Total Square (Post) (cm) 0 -Wound/Ulcer Outcome Healed- Epithelialized [See Physician Procedure note for Specifics] WC - Nurse 3 - General Ulcer D/C NN Start: 11/15/19 19:24 Freq: Status: Active Protocol: Activity Type Activity Date Activity User E-Sign Co-Sign Detail Recorded Client Recorded Date Recorded By Document 11/23/19 15:21 RB [id number] 11/23/19 15:22 RB 11/23/19 15:21 Wound Care Nurse 3 [Wound Dressing] 4-left shah -Ulcer Cleansing Rinsed/ Irrigated with Saline -Primary Dressing Applied NonAdherent Contact Layer -Other Dressing hydrogel -Primary Dressing Covered/Secured Dry Gauze & with Roll Gauze, Secured with Tape [Compression Applied] Left -Tubular Bandage Single Layer -Size of Tubigrip Used Size D -Size D ($) 1 Right -Tubular Bandage Single Layer -Size of Tubigrip Used Size D -Size D ($) 1 [Post Procedure Tolerated] -Treatment Response Procedure Tolerated Well Pain Scale: 0-10 Numeric [Pain] -Is Patient Pain Free? Yes Teaching: Wound Center [Wound Center Education] (Items with an * have Printed Materials Available- Please identify what is given to patient under the Teaching materials given to patient and caregiver Section. Compression Wraps & Stockings -Person Taught Patient -Teaching Method Discussion, Demonstration -Response to teaching Verbalize understanding WC - Visit Discharge [Visit Discharge Information] -Discharge Condition Stable -Ambulatory Status Ambulatory, Unsteady -Medication Reconcilliation completed No & provided to patient/care provider -Clinical Summary of Care Provided Yes Musculoskeletal: No Tenderness to Palpation of Joints or Extremities, Muscle Wasting Neurological: - - Lack of normal epicritic sensation light touch Psych/Mental Status: Normal Affect, Appropriate Debridement Note Post-Debridement Measurements/Treatment - Nurse 2 - General Ulcer CM Notes Start: 11/15/19 19:24 Freq: Status: Active Protocol: Activity Type Activity Date Activity User E-Sign Co-Sign Detail Recorded Client Recorded Date Recorded By Document 11/16/19 15:42 [id number] 11/16/19 15:48 Document 11/23/19 15:10 [id number] 11/23/19 15:14 JF 11/16/19 11/23/19 15:42 15:10 Wound Center Nurse 2 4-left shah -Time 15:47 15:10 -Correct Patient No Yes -Correct Side, Site, Position No Yes -Correct Procedure No Yes -Procedure Performed No Yes -Type of Procedure Debridement -Clinical Debridement Subcutaneous -Tissue Removed Subcutaneous -Post Debridement (cm) - Length 1.9 1.2 -Post Debridement (cm) - Width 1.7 0.8 -Post Debridement (cm) - Depth 0.1 0.1 -Total Square (Post) (cm) 3.23 0.96 -Area of Debridement (cm) - Length 1.2 -Area of Debridement (cm) - Width 0.8 -Total Square (Area) (cm) 0.96 -Tunneling No No -Undermining/Tunneling No No -Circular Undermining No No -Wound/Ulcer Outcome Not Healed -Ulcer Cleansing Rinsed/ Irrigated with Saline -Foul Odor after Cleansing No -Bioengineered Tissue No -Bleeding Controlled with Pressure -Offloading No -Treatment Response Procedure Tolerated Well -Debridement - Subq, 1st 20sq cm Yes #2 R Shah -Time 15:43 -Correct Patient Yes No -Correct Side, Site, Position Yes No -Correct Procedure Yes No -Procedure Performed Yes No -Type of Procedure Debridement -Clinical Debridement Subcutaneous -Tissue Removed Subcutaneous -Post Debridement (cm) - Length 0.3 0 -Post Debridement (cm) - Width 0.1 0 -Post Debridement (cm) - Depth 0.1 0 -Total Square (Post) (cm) 0.03 0 -Area of Debridement (cm) - Length 0.3 -Area of Debridement (cm) - Width 0.1 -Total Square (Area) (cm) 0.03 -Tunneling No -Undermining/Tunneling No -Circular Undermining No -Wound/Ulcer Outcome Not Healed Healed- Epithelialized -Ulcer Cleansing Rinsed/ Irrigated with Saline -Foul Odor after Cleansing No -Bioengineered Tissue No -Bleeding Controlled with Pressure -Offloading No -Treatment Response Procedure Tolerated Well -Debridement - Subq, 1st 20sq cm Yes Pain Scale: 0-10 Numeric Is Patient Pain Free? Yes WC - Nurse 3 - General Ulcer D/C NN Start: 11/15/19 19:24 Freq: Status: Active Protocol: Activity Type Activity Date Activity User E-Sign Co-Sign Detail Recorded Client Recorded Date Recorded By Document 11/16/19 15:48 JF [id number] 11/16/19 15:50 JF Document 11/23/19 15:21 RB [id number] 11/23/19 15:22 RB 11/16/19 11/23/19 15:48 15:21 Wound Care Nurse 3 4-left shah -Ulcer Cleansing Rinsed/ Rinsed/ Irrigated with Irrigated with Saline Saline -Foul Odor after Cleansing No -Primary Dressing Applied C Hydrogel ($), NonAdherent Contact Layer -Primary Dressing Applied NonAdherent Contact Layer -Other Dressing hydrogel -Primary Dressing Covered/Secured with Dry Gauze & Dry Gauze & Roll Gauze Roll Gauze, Secured with Tape #2 R Shah -Ulcer Cleansing Rinsed/ Irrigated with Saline -Foul Odor after Cleansing No -Primary Dressing Applied C Hydrogel ($), NonAdherent Contact Layer -Primary Dressing Covered/Secured with Dry Gauze & Roll Gauze Left -Tubular Bandage Double Layer Single Layer -Size of Tubigrip Used Size D Size D -Size D ($) 2 1 Right -Multi-Layered Wrap Application Multi-Layer Comp - Right ($ ) -Tubular Bandage Single Layer -Size of Tubigrip Used Size D -Size D ($) 1 Treatment Response Procedure Tolerated Well Pain Scale: 0-10 Numeric Is Patient Pain Free? Yes Yes Teaching: Wound Center Compression Wraps & Stockings -Person Taught Patient -Teaching Method Discussion, Demonstration -Response to teaching Verbalize understanding WC - Visit Discharge Discharge Condition Stable Stable Ambulatory Status Ambulatory Ambulatory, Unsteady Transportation Private Auto Accompanied by family member Medication Reconcilliation completed & Yes No provided to patient/care provider Clinical Summary of Care Provided Yes Yes Wound debrided: anterior leg proximal Laterality: Left Wound Grade/Stage: grade 1 Type of Debridement: Excisional debridement Anesthesia Used: 5% Lidocaine Gel Depth: in the subcutaneous layer Percentage of wound debrided: 100 Instrument Used: #15 blade Tissue Removed: fibrous, devitalized subcutaneous, biofilm, slough Severity: Fat Layer Exposed Amount of bleeding with debridement: Mild Bleeding Controlled with: Pressure Patient tolerated procedure well Assessment/Plan Active Problems (Last Reviewed 10/27/19 @ 10:17 by CELESTE Timmons) Other specified peripheral vascular diseases (Chronic) Xerosis cutis (Chronic) Corns and callosities (Chronic) left foot 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 New left leg ulcer with fat layer exposed, no infection, jauregui grade 1. Leg edema. diabetes (hemoglobin A1C 7.8, self reported from 09/2019 w/ Dr. Chaitanya Keyes). Peripheral vascular disease. Venous insufficiency. Congestive heart failure history noted. Neuropathy. Left fifth metatarsal fracture from approximately early July 2019, nonhealing Plan: I reviewed and discussed his case. Subcutaneous excisional debridement was performed to the left leg as noted in the clinical panel. It is noted the right leg ulcer site has healed and therefore this was not debrided. To wash gently with soap and water with daily dressing changes with hydrogel. For edema management, I recommend bilateral single layer Tubigrip application; this was applied today. To intermittently elevate on an hourly basis to control edema and to avoid idle standing or sitting. To avoid excessive salt intake in his diet as well. His venous duplex Doppler was reviewed from 09-05-2019 which did not demonstrate any DVT or deep venous incompetence. His prior venous studies are reviewed demonstrating venous insufficiency with incompetency bilateral lower extremity. He is following with vein specialist, Dr. Truong at this time and he was advised to continue. He relates he still needs to confirm his follow-up schedule. I advised him to call the office to pursue this officially. To continue to apply moisturizing lotion to maintain good skin integrity; Lac- Hydrin has been working well. His noninvasive vascular studies were reviewed and this is consistent with some noncompressible vessels. The waveforms at the ankle are by and triphasic. The right BERNARDINO is 1.32 and left and 0.82. The right digital brachial index is 1.15 and left is 0.29. I recommended vascular referral at this time due to ongoing delays in wound healing and also nonhealing of his left metatarsal fracture. To optimize a well-balanced diet to improve healing. His labs and x-rays from his recent hospital admission and follow up visits at the foot and ankle center were reviewed. His cellulitis remains resolved and I do not recommend additional antibiotics. He will follow-up with the foot and ankle center for left metatarsal fracture and he continues to wear the cam walker boot. I answered all his questions. To follow-up at the wound healing center in 1 week or call sooner if he has any questions or concerns. He relates he is not able to come in next week and therefore he will follow-up in 2 weeks instead. . 2019 karrie winn. Reviewed today: Medications and allergies reviewed and reconciled. Reviewed 09-14-2019: Body mass index is above normal. She was advised to follow-up with primary care physician. He was counseled on diet and activity modifications to optimize health weight, and blood pressure. His blood pressure is elevated at 125/85. He is a current nontobacco user. He denies falling within the past year. His influenza immunization was up-to-date.
== END 2019-11-28 23:59 ==
LOC: WC 14:45
PROVIDERS: PCP Family Medicine; Referring Provider Podiatrist; Visit Provider Podiatrist
DX: E11.621 Type 2 diabetes mellitus with foot ulcer (principal); L97.912 Non-pressure chronic ulcer of unspecified part of right lower leg with fat layer exposed; L97.922 Non-pressure chronic ulcer of unspecified part of left lower leg with fat layer exposed; E11.51 Type 2 diabetes mellitus with diabetic peripheral angiopathy without gangrene; E11.42 Type 2 diabetes mellitus with diabetic polyneuropathy; I87.031 Postthrombotic syndrome with ulcer and inflammation of right lower extremity; I11.0 Hypertensive heart disease with heart failure; I50.9 Heart failure, unspecified; L85.3 Xerosis cutis; I87.2 Venous insufficiency (chronic) (peripheral); M79.89 Other specified soft tissue disorders; R60.0 Localized edema; L84 Corns and callosities; S92.355D Nondisplaced fracture of fifth metatarsal bone, left foot, subsequent encounter for fracture with routine healing; X58.XXXD Exposure to other specified factors, subsequent encounter; Z79.4 Long term (current) use of insulin; Z79.01 Long term (current) use of anticoagulants; Z79.02 Long term (current) use of antithrombotics/antiplatelets; Z79.82 Long term (current) use of aspirin; Z79.899 Other long term (current) drug therapy
CPT/HCPCS: 11042; 29581

== ENCOUNTER 2019-11-30 19:27 | Inpatient (IN) | payer MEDICARE, OTHER, SELFPAY ==
[2017-11-06 10:25] VITALS: BMI 37.2
[2019-11-30 19:29] VITALS: BP 144/84; PULSE 70; RESP 16; TEMP 36.2; O2SAT 99; BMI 41.0
[2019-11-30 20:13] LABS: Absolute Lymphocyte Count 0.97 X10^3/uL (0.83-4.51); Absolute Neutrophil Count 3.6 X10^3/uL (2.0-7.7); Basophil# 0.05 X10^3/uL; Basophil% 0.9 % (0-1); Eosinophils% 5.4 % (0-5); Hematocrit 39.8 % (40-54); Hemoglobin 13.1 g/dL (13.0-16.5); Lymphocyte # 0.97 X10^3/ul (4.0); Lymphocyte % 17.4 % (19-41); Mean Corp Hgb Conc 32.9 g/dL (32-36); Mean Corpuscular Hgb 29.8 pg (27.0-32.0); Mean Corpuscular Volume 90.7 fL (80-94); Mean Platelet Vol. 9.6 fl (6.2-12.0); Monocyte# 0.61 X10^3/uL; Monocyte% 10.9 % (0-10); NRBC Flagged by Analyzer 0 % (0-5); Neutrophil % 64.5 % (47-70); Platelet Count 176 K/mm3 (150-450); RBC Distribution Width CV 13.8 % (11.6-14.6); Red Blood Count 4.39 M/mm3 (4.6-6.2); White Blood Count 5.6 K/mm3 (4.4-11.0)
[2019-11-30 20:27] LABS: Anion Gap 3 (5-15); BUN 27 mg/dL (7-18); BUN/Creat Ratio 17.1 RATIO (10-20); Chloride 105 mmol/L (98-107); Creatinine, Serum 1.58 mg/dL (0.70-1.30); EST Glomerular Filtration Rate 46 mL/min (>60); Est Glom Filt Rate - Afr Amer 55 mL/min (>60); Estimated Creatinine Clearance 39.68 ml/min; Glucose 99 mg/dL (74-106); Potassium 4.3 mmol/L (3.5-5.1); Sodium Level 138 mmol/L (136-145)
[2019-11-30 20:42] VITALS: BP 145/80; PULSE 69; RESP 20; TEMP 36.5; O2SAT 96
--- NOTE | 2019-11-30 22:04 | ED.DCSUM_ITS ---
- ER Visit Summary Date of Service: 11/30/19 Chief Complaint: Right lower leg discomfort, redness and swelling History of Present Illness: The patient is a 74 M with prior cellulitis, TIA, CAD, pacemaker defibrillator, insulin-dependent diabetes, cardiac stent on Coumadin and renal insufficiency stage III. Patient states he has chronic leg wounds he has home nursing care. They noticed more redness and swelling today and same in the emergency department. He has had cellulitis in this leg before. He denies any fever or chills. Physical Examination: Older male no acute distress vital signs stable afebrile. Family at bedside. HEENT exam unremarkable. Lungs clear to auscultation. Heart regular rhythm. Abdomen soft nontender normal bowel sounds no peritoneal signs. Extremities moves all 4. Right lower leg just below his knee down which ankle he has redness consistent with cellulitis and pitting edema. He is able to do dorsi plantarflexion. He feels me touch the right foot. Left foot is in a walking boot. Neurologically is awake and alert. He is moving all 4 ex tremities. Test Results: His white count of 5. Hemoglobin 13. No bands. Chemistries unremarkable gap of 3. BUN 27 creatinine 1.58. He is also on warfarin the nurses put in protocol orders. I added a PT/INR. Emergency Department Course and Treatment: Right lower extremity cellulitis. Started on IV Zosyn. Treatment Plan: Hospitalist on page for admission. Disposition: admission Impression: Acute right lower extremity cellulitis History of insulin-dependent diabetes History of TIA and CAD with cardiac stent Renal insufficiency stage III Anticoagulated on Coumadin This note was generated with [employer] dictation software. It may contain incorrect words, spelling, and punctuation that were not noted in review of the chart prior to signing ED Disposition - Plan for ED Patient: Referrals: Gilbert Keyes III, MD [Primary Care Provider] -
[2019-11-30 22:11] LABS: Bedside Glucose 71 mg/dL (70-110)
--- NOTE | 2019-11-30 22:20 | PCM.HP.STD ---
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 Status: Chronic Qualifiers: Fracture type: closed Fracture alignment: nondisplaced Qualified Code(s): S92.355K - Nondisplaced fracture of fifth metatarsal bone, left foot, subsequent encounter for fracture with nonunion Comment: left foot (9) Ulcer of left lower extremity with fat layer exposed Status: Inactive (10) Hypertension Status: Chronic Qualifiers: Hypertension type: essential hypertension Qualified Code(s): I10 - Essential (primary) hypertension (11) History of congestive heart failure Status: Chronic (12) Ulcer of right lower extremity with fat layer exposed Status: Chronic (13) Localized edema Status: Chronic (14) Nondisp fracture of fifth left metatarsal bone with routine healing Status: Chronic Qualifiers: Fracture type: closed Qualified Code(s): S92.355D - Nondisplaced fracture of fifth metatarsal bone, left foot, subsequent encounter for fracture with routine healing (15) Walking difficulty due to ankle and foot Status: Chronic (16) Atherosclerotic heart disease of [place] coronary artery with other forms of angina pectoris Status: Chronic Comment: FTZ-[id number]-Ahc Cx; PCI-Cutting Balloon Angioplasty of ISR-ostium of prox lat CX 11/22/02; PCI-stent to proximal OM 01/2008; PCI- APV-HOP-Czpr OM 12/15/13;C w/FFR of LAD, D1, LCx 05/30/2016 (17) 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 (18) Ischemic cardiomyopathy Status: Chronic (19) History of coronary artery stent placement Status: Chronic Comment: [id number]; PCI-Cutting Balloon Angioplasty of ISR-ostium of prox OM1 11/22/02; PCI-stent to proximal OM1 01/2008; PCI- PUS-QRC-Yzvk OM1 w/ 2.5 x 12 mm Promus Premier 12/15/14 (20) History of implantable cardiac defibrillator (ICD) Status: Chronic Comment: 11/23/2002, Generator change 2018 (21) Acute systolic (congestive) heart failure Status: Chronic (22) Paroxysmal atrial flutter Status: Chronic (23) Nonsustained ventricular tachycardia Status: Chronic (24) Hyperlipidemia Status: Chronic Qualifiers: Hyperlipidemia type: unspecified Qualified Code(s): E78.5 - Hyperlipidemia, unspecified (25) Cellulitis Status: Acute History of Present Illness Date of Admission: 11/30/19 Chief Complaint: erythema of right leg The patient is a 74 year old M with a significant history of; diabetes mellitus and paroxysmal A. fib who presents emergency department with a 3-day history of redness of his right leg. Associated with symptoms is a swelling and pain on the same extremity. He describes his pain as a burning sensation. He feels like his right leg is on fire. Home health nurse who does dressing changes instructed him to come to the emergency department. Past Medical History Past Medical History (Chronic Problems): Chronic Problems (Last Reviewed 12/01/19 @ 03:[address] 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 Hypertension (Chronic) History of congestive heart failure (Chronic) Ulcer of right lower extremity with fat layer exposed (Chronic) Localized edema (Chronic) Nondisp fracture of fifth left metatarsal bone with routine healing (Chronic) Walking difficulty due to ankle and foot (Chronic) Atherosclerotic heart disease of [place] coronary artery with other forms of angina pectoris (Chronic) VFR-Acxhp-Bnh Cx; PCI-Cutting Balloon Angioplasty of ISR-ostium of prox lat CX 11/22/02; PCI-stent to proximal OM 01/2008; PCI- GCM-HOP-Zmup OM 12/15/13;LHC w/FFR of LAD, D1, LCx 05/30/2016 Old inferior wall myocardial infarction (Chronic) Ischemic cardiomyopathy (Chronic) History of coronary artery stent placement (Chronic 12/15/14) [id number]; PCI-Cutting Balloon Angioplasty of ISR-ostium of prox OM1 11/22/02; PCI-stent to proximal OM1 01/2008; PCI- LQU-QLZ-Pjmn OM1 w/ 2.5 x 12 mm Promus Premier 12/15/14 History of implantable cardiac defibrillator (ICD) (Chronic 11/19/17) 11/23/2002, Generator change 2017 Acute systolic (congestive) heart failure (Chronic) Paroxysmal atrial flutter (Chronic) Nonsustained ventricular tachycardia (Chronic) Hyperlipidemia (Chronic) Medical History: Medical History (Last Reviewed 12/01/19 @ 03:[address] Esteban Cardenas MD) Hypertension (Chronic) I10 Atherosclerotic heart disease of [place] coronary artery with other forms of angina pectoris (Chronic) I25.118 NGH-Wdjvs-Obs Cx; PCI-Cutting Balloon Angioplasty of ISR-ostium of prox lat CX 11/22/02; PCI-stent to proximal OM 01/2008; PCI- RFT-KNC-Txpi OM 12/15/13;[facility] w/FFR of LAD, D1, LCx 05/30/2016 Old inferior wall myocardial infarction (Chronic) I25.2 Ischemic cardiomyopathy (Chronic) I25.5 Acute systolic (congestive) heart failure (Chronic) I50.21 Paroxysmal atrial flutter (Chronic) I48.92 Nonsustained ventricular tachycardia (Chronic) I47.2 Hyperlipidemia (Chronic) E78.5 Diabetes mellitus type 2 in obese E11.69, E66.9 History of non-ST elevation myocardial infarction (NSTEMI) Onset Date: 11/05/16 I25.2 Obesity E66.9 Type 2 diabetes mellitus E11.9 History of deep vein thrombosis (DVT) of lower extremity Z86.718 Nonrheumatic tricuspid (valve) insufficiency (Inactive) I36.1 Allergies ceftriaxone sodium [From Rocephin] Allergy (Verified 11/30/19 19:31) Rash milk Adverse Reaction (Verified 11/30/19 19:31) Diarrhea morphine Adverse Reaction (Verified 11/30/19 19:31) hallucinations Home Medications: Ambulatory Orders Medication Instructions Recorded Clopidogrel Bisulfate [Plavix] 75 mg PO DAILY 12/04/14 Insulin Lispro [Humalog] 17 unit SQ TIDCM 08/25/17 carvedilol 6.25 mg tablet 6.25 mg PO BID #180 tab 10/11/18 Aspirin E.C. [Ecotrin] 81 mg PO DAILY@0800 11/17/18 Latanoprost 1 drp EACH EYE QHS 11/17/18 Warfarin Sodium 6 mg PO SUTUTHSA 11/17/18 Colestipol Tablet [Colestid Tablet] 1 gm PO BID 12/02/18 Fenofibrate Nanocrystallized 145 mg PO DAILY 12/02/18 [Tricor] Insulin NPH Human Isophane 32 units SQ BID 12/02/18 [Humulin N Vial] Ranolazine [Ranexa] 1,000 mg PO BID 12/02/18 Furosemide [Lasix] 40 mg PO BID #60 tab 12/06/18 spironolactone 25 mg tablet 25 mg PO DAILY #90 tab 12/16/18 trazodone 50 mg tablet 50 mg PO QHS tab 01/28/19 pantoprazole 40 mg tablet,delayed 40 mg PO DAILY #90 tab 04/27/19 release Ropinirole HCl [Requip] 0.5 mg PO DAILY 09/05/19 Warfarin Sodium [Jantoven] 3 mg PO MOWEFR 09/05/19 isosorbide mononitrate 60 mg 60 mg PO BID #180 tab 10/07/19 tablet,extended release 24 hr nitroglycerin 0.4 mg sublingual 0.4 mg SUBLINGUAL Q5M PRN #25 tab 10/07/19 tablet amlodipine 5 mg tablet 5 mg PO DAILY #30 tab 10/27/19 gabapentin 300 mg capsule 900 mg PO BID cap 10/27/19 lisinopril 20 mg tablet 10 mg PO DAILY tab 10/27/19 Amiodarone HCl 200 mg PO DAILY 11/30/19 Rosuvastatin Calcium 40 mg PO QHS 11/30/19 Surgical History: Surgical History (Last Reviewed 12/01/19 @ 03:[address] Esteban Cardenas MD) History of coronary artery stent placement (Chronic) Onset Date: 12/15/14 Z95.5 UWY-Pmcil-KR4; PCI-Cutting Balloon Angioplasty of ISR-ostium of prox OM1 11/22/02; PCI-stent to proximal OM1 01/2008; PCI- HIZ-SDY-Lqsb OM1 w/ 2.5 x 12 mm Promus Premier 12/15/14 History of implantable cardiac defibrillator (ICD) (Chronic) Onset Date: 11/19/17 11/23/2002, Generator change 2017 H/O colonoscopy with polypectomy Onset Date: 11/2017 Z98.890, Z86.010 History of detached retina repair Z98.890, Z86.69 torn History of electrophysiologic study Onset Date: 11/23/02 Z98.890 History of left heart catheterization Onset Date: 12/06/18 Z98.890 FFR of LAD, D1, LCx 05/30/2016 History of radiofrequency ablation procedure for cardiac arrhythmia Onset Date: 07/01/11 Z98.890 Surgical History: - Psychiatric History: No pertinent psych hx Smoking Status: Former smoker - *Family History Maternal Family History: Family History (Last Reviewed 12/01/19 @ 03:[address] Esteban Cardenas MD) Father Prostate cancer Mother CVA (cerebral vascular accident) Sister Congestive heart failure Diabetes Hypertension Hyperlipidemia Atrial fibrillation CAD (coronary artery disease) Cardiac defibrillator in situ Sister Breast cancer Sister Breast cancer Brother CAD (coronary artery disease) Myocardial infarction Diabetes Brother Diabetes Brother COPD (chronic obstructive pulmonary disease) Sister Alive and well History Items: Stroke - CVA, age 80. Paternal Family History: Family History (Last Reviewed 12/01/19 @ 03:[address] Esteban Cardenas MD) Father Prostate cancer Mother CVA (cerebral vascular accident) Sister Congestive heart failure Diabetes Hypertension Hyperlipidemia Atrial fibrillation CAD (coronary artery disease) Cardiac defibrillator in situ Sister Breast cancer Sister Breast cancer Brother CAD (coronary artery disease) Myocardial infarction Diabetes Brother Diabetes Brother COPD (chronic obstructive pulmonary disease) Sister Alive and well History Items: Cancer - Prostate CA, 78 y/o. Sibling Family History: Family History (Last Reviewed 12/01/19 @ 03:[address] Esteban Cardenas MD) Father Prostate cancer Mother CVA (cerebral vascular accident) Sister Congestive heart failure Diabetes Hypertension Hyperlipidemia Atrial fibrillation CAD (coronary artery disease) Cardiac defibrillator in situ Sister Breast cancer Sister Breast cancer Brother CAD (coronary artery disease) Myocardial infarction Diabetes Brother Diabetes Brother COPD (chronic obstructive pulmonary disease) Sister Alive and well History Items: Diabetes Review of Systems Constitutional: Denies: Chills, Fever, Weight Change HEENT: Denies: Head Aches, Sinus Congestion, Sinus Drainage Cardiovascular: Denies: Chest Pain, Palpitations Respiratory: Denies: Cough, Shortness of breath at rest, Sputum production Gastrointestinal: Denies: Abdominal Pain, Nausea, Vomiting Genitourinary: Denies: Dysuria Musculoskeletal: Reports: Leg Pain. Denies: Joint Pain, Joint Tenderness Skin: Reports: Skin Changes - Erythema of right leg, Wounds - right leg Neurological: Denies: Numbness, Tingling, Focal weakness Psychiatric: Denies: Anxiety, Depression, Homicidal Ideations, Suicidal Ideations Hematologic/ Lymphatic: Denies: Easy Bruising, Easy Bleeding VTE Information - Inpt Only VTE Present on Admission: No VTE Mechan Device Prophylaxis: None VTE Pharm Prophylaxis ordered?: No Reason prophylaxis not ordered:: Treatment Not Indicated - Home Coumadin continued Patient Problems: Active and Suspected Problems (Last Reviewed 12/01/19 @ 03:[address] Esteban Cardenas MD) Cellulitis (Acute) Cellulitis (Acute) - Physical Exam Vitals/I&O's: Vital Signs Temp Pulse Resp BP Pulse Ox 97.7 F L 69 20 H 145/80 H 96 11/30/19 20:42 11/30/19 20:42 11/30/19 20:42 11/30/19 20:42 11/30/19 20:42 Oxygen Delivery Method Room Air Weight: 122.47 kg Body Mass Index (BMI) 41.0 Finger Stick Blood Glucose 180 General: Alert, Oriented x3, Cooperative HEENT: Atraumatic, PERRLA, EOMI, Normocephalic Neck: Supple, No JVD, Negative Carotid Bruits Lungs: Normal air movement, No rhonchi, Wheezes Cardiovascular: Regular rate, Regular Rhythm, Normal S1, Normal S2, No murmurs Abdomen: Bowel Sounds Present, Soft, Non Tender Extremities: Cool - Right foot, Edema - Right leg, - Skin: Excoriated - On right sahu, - - Erythema of right foot Musculoskeletal: No Muscle Wasting Neurological: Cranial nerves II-XII grossly intact Psych/Mental Status: Normal Affect, Appropriate Laboratory Results 11/30/19 20:05: WBC 5.6, RBC 4.39 L, Hgb 13.1, Hct 39.8 L, MCV 90.7, MCH 29.8, MCHC 32.9, RDW Std Deviation 46.0 H, RDW Coeff of [place]o 13.8, Plt Count 176, MPV 9.6, Immature Gran % (Auto) 0.900, Neut % (Auto) 64.5, Lymph % (Auto) 17.4 L, Ramsey % (Auto) 10.9 H, Eos % (Auto) 5.4 H, Baso % (Auto) 0.9, Absolute Neuts (auto) 3.6, Absolute Lymphs (auto) 0.97, Nucleated RBC % 0 11/30/19 20:05: Sodium 138, Potassium 4.3, Chloride 105, Carbon Dioxide 30.0, Anion Gap 3 L, BUN 27 H, Creatinine 1.58 H, Estim Creat Clear Calc 39.68, Est GFR (MDRD) Af Amer 55 L, Est GFR (MDRD) Non-Af 46 L, BUN/Creatinine Ratio 17.1, Glucose 99, Calcium 9.0 11/30/19 22:04: POC Glucose 71 Assessment/Plan All Active Problems (Last Reviewed 12/01/19 @ 03:[address] Esteban Cardenas MD) Ulcer of right lower extremity with fat layer exposed (Resolved) Cellulitis of right leg (Resolved) Cellulitis (Acute) Cellulitis (Acute) The patient is a 74 year old M with a significant history of; diabetes mellitus and paroxysmal A. fib who presents emergency department with a 3-day history of redness; swelling and erythema of his right leg. Cellulitis of right leg Of note patient is allergic to ceftriaxone. Will start patient on Ancef. Atrial fibrillation Amiodarone continued INR is subtherapeutic. Escalate Coumadin. Daily PT/INR ordered. CAD status post stents Aspirin and Plavix continued Carvedilol continued Systolic heart failure Stable Echocardiogram on 09/06/2019 showed patient fraction of 47%. Carvedilol and; lisinopril and Lasix continued CKD stage III Stable Diabetes mellitus Blood glucose is on the low side. Hold home NPH. Accu-Chek with correction scale insulin ordered. Insomnia Trazodone continued Excoriation of sahu of right leg Apply Adaptic dressing. DVT prophylaxis Home warfarin for A. fib escalated. Inpatient E&M: 90309 Init Hosp L3
[2019-11-30 22:29] VITALS: BP 127/76; PULSE 66; RESP 18; TEMP 36.4; O2SAT 98
[2019-11-30 22:34] LABS: International Normalized Ratio 1.7
[2019-11-30 23:01] VITALS: BMI 41.1
[2019-11-30 23:12] VITALS: BP 120/64; PULSE 70; RESP 18; TEMP 36.3; O2SAT 99
[2019-12-01] VITALS (9 sets, daily range): BP systolic 108–119; BP diastolic 65–75; PULSE 63–80; RESP 17–18; TEMP 36.5–36.6; O2SAT 95–99
[2019-12-01] MEDS: Cefazolin 1 GM/50 ML BAG IV ×4 (00:59→22:27)
[2019-12-01] MEDS: 0.9% Saline Lock 10 ML Syringe IV (00:59)
[2019-12-01 06:06] LABS: Absolute Lymphocyte Count 0.92 X10^3/uL (0.83-4.51); Absolute Neutrophil Count 4.3 X10^3/uL (2.0-7.7); Basophil# 0.05 X10^3/uL; Basophil% 0.8 % (0-1); Eosinophil# 0.38 X10^3/uL; Eosinophils% 6.1 % (0-5); Hematocrit 36.9 % (40-54); Hemoglobin 11.9 g/dL (13.0-16.5); Lymphocyte # 0.92 X10^3/ul (4.0); Lymphocyte % 14.6 % (19-41); Mean Corp Hgb Conc 32.2 g/dL (32-36); Mean Corpuscular Hgb 29.3 pg (27.0-32.0); Mean Corpuscular Volume 90.9 fL (80-94); Mean Platelet Vol. 9.6 fl (6.2-12.0); Monocyte# 0.64 X10^3/uL; Monocyte% 10.2 % (0-10); NRBC Flagged by Analyzer 0 % (0-5); Neutrophil # 4.25 X10^3/uL (2.7-7.7); Neutrophil % 67.7 % (47-70); Platelet Count 146 K/mm3 (150-450); RBC Distribution Width CV 13.8 % (11.6-14.6); RBC Distribution Width SD 46.2 fl (35.1-43.9); Red Blood Count 4.06 M/mm3 (4.6-6.2); White Blood Count 6.3 K/mm3 (4.4-11.0)
[2019-12-01 06:25] LABS: Anion Gap 6 (5-15); BUN 28 mg/dL (7-18); BUN/Creat Ratio 20.3 RATIO (10-20); Calcium,Total 8.5 mg/dL (8.5-10.1); Chloride 107 mmol/L (98-107); Creatinine, Serum 1.38 mg/dL (0.70-1.30); EST Glomerular Filtration Rate 54 mL/min (>60); Est Glom Filt Rate - Afr Amer 65 mL/min (>60); Estimated Creatinine Clearance 45.43 ml/min; Glucose 162 mg/dL (74-106); Potassium 3.9 mmol/L (3.5-5.1); Sodium Level 139 mmol/L (136-145)
[2019-12-01] MEDS: Insulin Lispro 100 UNIT/ML INSULN.PEN SC ×4 (06:45→22:46)
[2019-12-01 06:46] LABS: Bedside Glucose 162 mg/dL (70-110)
[2019-12-01] MEDS: Amiodarone 200 MG Tablet PO (09:12)
[2019-12-01] MEDS: Carvedilol 6.25 MG Tablet PO ×2 (09:12→17:13)
[2019-12-01] MEDS: Isosorbide Mononitrate 60 MG Tablet PO ×2 (09:12→22:31)
[2019-12-01] MEDS: Fenofibrate 145 MG Tablet PO (09:13)
[2019-12-01] MEDS: Aspirin E.C. 81 MG Tablet PO (09:13)
[2019-12-01] MEDS: Spironolactone 25 MG Tablet PO (09:13)
[2019-12-01] MEDS: Furosemide 40 MG Tablet PO ×2 (09:14→17:17)
[2019-12-01] MEDS: Nystatin Powder 15gm Bottle 1 APPLIC TOPICAL ×2 (09:14→22:45)
[2019-12-01] MEDS: Pramipexole Di-HCl 0.25 MG Tablet PO (09:14)
[2019-12-01] MEDS: Pantoprazole Sodium 40 MG Tablet PO (09:15)
[2019-12-01] MEDS: Clopidogrel Bisulfate 75 MG Tablet PO (09:15)
[2019-12-01] MEDS: Gabapentin 300 MG Capsule 900 MG PO ×2 (09:15→22:30)
[2019-12-01] MEDS: Lisinopril 10 MG Tablet PO (09:16)
[2019-12-01] MEDS: Ranolazine 500 MG Tablet 1000 MG PO ×2 (09:16→22:32)
[2019-12-01] MEDS: Glucerna Shake 120 ML LIQUID PO (09:17)
--- NOTE | 2019-12-01 10:00 | CASEMGMT ---
DIANA HENRY Face to Face with patient for initial transition planning/care coordination assessment. RN CM introduced self and role at [facility]. Patient sitting in chair, alert and oriented. Patient willing to participate in assessment and is able to answer all questions appropriately. Care providers, pharmacy, and demographics verified. Patient wishes to discharge home with resumption of HHC with [facility]. Patient states he has no further needs or concerns at this time. CM to follow for discharge planning needs that may arise. 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 Patient states he is independent for self care. Transportation: daughter DME/HHC: Patient states he has raised toilet, cane, walker, grab bars, cpap at home. Patient is current with [facility] for SN, will monitor for need for PT/OT at discharge. Disposition Plan: Patient to discharge home with resumption of HHC, family support, and follow-up plans in place. Autumn SHEIKH, RN, CM
--- NOTE | 2019-12-01 11:03 | VDLE_ITS ---
Reason For Study: SWELLING RIGHT CFV is compressible, spontaneous, phasic, competent and demonstrates normal augmentation. FV is compressible, spontaneous, phasic, competent and demonstrates normal augmentation. POP V is compressible, spontaneous, phasic, competent and demonstrates normal augmentation. T/P Trunk is compressible. PTV is compressible. RT PerV is compressible. Rt GSV AK has been harvested for CABG. Rt GSV BK is compressible. Procedure Exam performed portable in patient room. The study was technically difficult. A preliminary report was called and/or faxed to [facility]. Interpretation Summary There is no evidence of right lower extremity deep vein thrombosis. Right below-knee great saphenous vein is patent and compressible Exam was noted to be technically difficult Ordering Physician: Candido Nettles Referring Physician: MORGAN KEYES Performed By: Blanca CARTER RVT, Carrie and Student
[2019-12-01 12:16] LABS: Bedside Glucose 289 mg/dL (70-110)
--- NOTE | 2019-12-01 12:23 | PCM.PN.HOSP ---
<Candido Nettles - Last Filed: 12/01/19 12:23> Patient Problems: Active and Suspected Problems (Last Reviewed 12/01/19 @ 03:[address] Esteban Cardenas MD) Cellulitis (Acute) Cellulitis (Acute) Reason for Visit: RLE swelling, pain Subjective: Minimal change in skin. Small nickel size annular open lesion desquamated. No drainage at this time. No significant warmth. Chronic venous changes. Ongoing erythema. Vitals/I&O's: Vital Signs Temp Pulse Resp BP Pulse Ox 97.7 F L 63 18 108/70 99 12/01/19 04:12 12/01/19 06:00 12/01/19 04:12 12/01/19 04:12 12/01/19 04:12 Oxygen Delivery Method Room Air Weight: 270 lb 0.99 oz Body Mass Index (BMI) 41.1 Finger Stick Blood Glucose 180 Intake and Output for Last 24 Hours 11/29/19 11/30/19 12/01/19 23:59 23:59 23:59 Intake Total 250 / 250 Balance 250 / 250 General: Alert, Oriented x3, Cooperative HEENT: Atraumatic, PERRLA, EOMI, Normocephalic Neck: Supple, No JVD, Negative Carotid Bruits Lungs: Clear to auscultation, Normal air movement Cardiovascular: Regular rate, No murmurs Abdomen: Bowel Sounds Present, Soft, Non Tender Extremities: Capillary Refill Less than 3 Seconds, Edema Skin: No rashes, No breakdown, - - minimal change vs demarcation. annular nickel size lesion of desquamation with no expressable drainge. no significant increseased warmth Musculoskeletal: No Tenderness to Palpation of Joints or Extremities Neurological: Cranial nerves II-XII grossly intact Psych/Mental Status: Normal Affect, Appropriate Laboratory Results 11/30/19 20:05: WBC 5.6, RBC 4.39 L, Hgb 13.1, Hct 39.8 L, MCV 90.7, MCH 29.8, MCHC 32.9, RDW Std Deviation 46.0 H, RDW Coeff of Galo 13.8, Plt Count 176, MPV 9.6, Immature Gran % (Auto) 0.900, Neut % (Auto) 64.5, Lymph % (Auto) 17.4 L, Loving % (Auto) 10.9 H, Eos % (Auto) 5.4 H, Baso % (Auto) 0.9, Absolute Neuts (auto) 3.6, Absolute Lymphs (auto) 0.97, Nucleated RBC % 0 11/30/19 20:05: Sodium 138, Potassium 4.3, Chloride 105, Carbon Dioxide 30.0, Anion Gap 3 L, BUN 27 H, Creatinine 1.58 H, Estim Creat Clear Calc 39.68, Est GFR (MDRD) Af Amer 55 L, Est GFR (MDRD) Non-Af 46 L, BUN/Creatinine Ratio 17.1, Glucose 99, Calcium 9.0 11/30/19 20:05: PT 19.0 H, INR 1.7 11/30/19 22:04: POC Glucose 71 12/01/19 05:48: WBC 6.3, RBC 4.06 L, Hgb 11.9 L, Hct 36.9 L, MCV 90.9, MCH 29.3, MCHC 32.2, RDW Std Deviation 46.2 H, RDW Coeff of Galo 13.8, Plt Count 146 L, MPV 9.6, Immature Gran % (Auto) 0.600, Neut % (Auto) 67.7, Lymph % (Auto) 14.6 L, Loving % (Auto) 10.2 H, Eos % (Auto) 6.1 H, Baso % (Auto) 0.8, Absolute Neuts (auto) 4.3, Absolute Lymphs (auto) 0.92, Nucleated RBC % 0 12/01/19 05:48: Sodium 139, Potassium 3.9, Chloride 107, Carbon Dioxide 26.0, Anion Gap 6, BUN 28 H, Creatinine 1.38 H, Estim Creat Clear Calc 45.43, Est GFR (MDRD) Af Amer 65, Est GFR (MDRD) Non-Af 54 L, BUN/Creatinine Ratio 20.3 H, Glucose 162 H, Calcium 8.5 12/01/19 06:38: POC Glucose 162 H 12/01/19 12:02: POC Glucose 289 H Current Medications Acetaminophen (Tylenol) 650 mg PO Q6H PRN PRN PRN Reason: Pain Score 1-10/Temp > 100.7 F Albuterol Sulfate (Ventolin Aerosols) 2.5 mg INHALATION Q2H PRN PRN PRN Reason: sob/wheezing Amiodarone HCl (Cord[facility]) [facility] Last Admin: 12/01/19 09:12 Dose: 200 mg Documented by: Aspirin (Ecotrin) 81 mg PO DAILY@0800 [facility] Last Admin: 12/01/19 09:13 Dose: 81 mg Documented by: Atorvastatin Calcium (Lipitor) 80 mg PO QHS [facility] Carvedilol (Coreg) 6.25 mg PO BIDCM [facility] Last Admin: 12/01/19 09:12 Dose: 6.25 mg Documented by: Clopidogrel Bisulfate (Plavix) 75 mg PO DAILY [facility] Last Admin: 12/01/19 09:15 Dose: 75 mg Documented by: Colestipol HCl (Colestid Tablet) 1 gm PO BID [facility] Last Admin: 12/01/19 09:13 Dose: 1 gm Documented by: Dextrose (D50w Syringe) 0 gm IV X1 PRN; Protocol PRN Reason: Hypoglycemia Fenofibrate (Tricor) 145 [facility] Last Admin: 12/01/19 09:13 Dose: 145 mg Documented by: Furosemide (Lasix) 40 mg PO BIDLX [facility] Last Admin: 12/01/19 09:14 Dose: 40 mg Documented by: Gabapentin (Neurontin) 900 mg PO BID [facility] Last Admin: 12/01/19 09:15 Dose: 900 mg Documented by: Glucagon () 1 mg IM .X1 PRN PRN Reason: Hypoglycemia Cefazolin Sodium () 1 gm in 50 mls @ 100 mls/hr IV Q8 [facility] Last Infusion: 12/01/19 07:09 Dose: Infused Documented by: Sodium Chloride () 250 mls @ 15 mls/hr IV .[id number] PRN PRN Reason: Saline Flush Sodium Chloride () 250 mls @ 15 mls/hr IV .[id number] PRN PRN Reason: Additional IVPB Infusion Insulin Human Lispro (Humalog Kwjignapen (Bkc)) [facility]; Protocol Last Admin: 12/01/19 12:03 Dose: 2 units Documented by: Isosorbide Mononitrate (Imdur) 60 mg PO BID [facility] Last Admin: 12/01/19 09:12 Dose: 60 mg Documented by: Latanoprost (Xalatan Opthalmic) 1 drop EACH EYE QHS [facility] Lisinopril (Zestril) 10 mg PO DAILY [facility] Last Admin: 12/01/19 09:16 Dose: 10 mg Documented by: Multi-Ingredient Cream (Eucerin) 1 applic TOPICAL BID PRN [facility]; Protocol Nystatin (Mycostatin Powder) 1 applic TOPICAL BID [facility]; Protocol Last Admin: 12/01/19 09:14 Dose: 1 applicatio Documented by: Ondansetron HCl (Zofran) 4 mg IV Q8H PRN PRN PRN Reason: NAUSEA/VOMITING Pantoprazole Sodium (Protonix) 40 mg PO DAILY [facility] Last Admin: 12/01/19 09:15 Dose: 40 mg Documented by: Pramipexole Dihydrochloride (Mirapex) 0.25 mg PO DAILY [facility] Last Admin: 12/01/19 09:14 Dose: 0.25 mg Documented by: Ranolazine (Ranexa) 1,000 mg PO BID [facility] Last Admin: 12/01/19 09:16 Dose: 1,000 mg Documented by: Sodium Chloride () 10 - 40 ml IV UD PRN PRN Reason: SALINE FLUSH Last Admin: 12/01/19 00:59 Dose: 10 ml Documented by: Spironolactone (Aldactone) 25 mg PO DAILY [facility] Last Admin: 12/01/19 09:13 Dose: 25 mg Documented by: Trazodone HCl (Desyrel) 50 mg PO QHS [facility] Warfarin Sodium (Coumadin (Pbkc)) 7.5 mg PO DAILY@1700 [facility] Medical Necessity - Tobacco Use Smoking Status: Former smoker Assessment/Plan All Active Problems (Last Reviewed 12/01/19 @ 03:[address] Esteban Cardenas MD) Ulcer of right lower extremity with fat layer exposed (Resolved) Cellulitis of right leg (Resolved) Cellulitis (Acute) Cellulitis (Acute) 1. Acute RLE Cellulitis - no fever/leukocytosis. Minimal change. no fluid collection appreciated. on ancef. hx dvts and subtherapeutic INR. check for DVT today. 2. Hx pAfib, pacemaker - on amio, coumadin. rate controlled 3. CAD - prior stents, continue coreg/asa/plavix/statin/ranexa/imdur 4. Hx chronic systolic CHF, ischemic CM - furosemide, aldactone, lisinopril. 5. HTN - stable 6. HLD - statin/tricor/colestipol DVT ppx: warfarin DC Planning: resume HHC at dc. This patient was seen by Candido Nettles PA-C under the supervision of Doctor Jacey. <Omari Mari F - Last Filed: 12/01/19 18:27> Vitals/I&O's: Vital Signs Temp Pulse Resp BP Pulse Ox 97.9 F 80 18 119/65 95 12/01/19 10:12 12/01/19 17:00 12/01/19 10:12 12/01/19 10:12 12/01/19 10:12 Oxygen Delivery Method Room Air Weight: 270 lb 0.99 oz Body Mass Index (BMI) 41.1 Finger Stick Blood Glucose 180 Intake and Output for Last 24 Hours 11/29/19 11/30/19 12/01/19 23:59 23:59 23:59 Intake Total 1150 / 1150 Balance 1150 / 1150 Laboratory Results 11/30/19 20:05: WBC 5.6, RBC 4.39 L, Hgb 13.1, Hct 39.8 L, MCV 90.7, MCH 29.8, MCHC 32.9, RDW Std Deviation 46.0 H, RDW Coeff of Galo 13.8, Plt Count 176, MPV 9.6, Immature Gran % (Auto) 0.900, Neut % (Auto) 64.5, Lymph % (Auto) 17.4 L, Loving % (Auto) 10.9 H, Eos % (Auto) 5.4 H, Baso % (Auto) 0.9, Absolute Neuts (auto) 3.6, Absolute Lymphs (auto) 0.97, Nucleated RBC % 0 11/30/19 20:05: Sodium 138, Potassium 4.3, Chloride 105, Carbon Dioxide 30.0, Anion Gap 3 L, BUN 27 H, Creatinine 1.58 H, Estim Creat Clear Calc 39.68, Est GFR (MDRD) Af Amer 55 L, Est GFR (MDRD) Non-Af 46 L, BUN/Creatinine Ratio 17.1, Glucose 99, Calcium 9.0 11/30/19 20:05: PT 19.0 H, INR 1.7 11/30/19 22:04: POC Glucose 71 12/01/19 05:48: WBC 6.3, RBC 4.06 L, Hgb 11.9 L, Hct 36.9 L, MCV 90.9, MCH 29.3, MCHC 32.2, RDW Std Deviation 46.2 H, RDW Coeff of Galo 13.8, Plt Count 146 L, MPV 9.6, Immature Gran % (Auto) 0.600, Neut % (Auto) 67.7, Lymph % (Auto) 14.6 L, Loving % (Auto) 10.2 H, Eos % (Auto) 6.1 H, Baso % (Auto) 0.8, Absolute Neuts (auto) 4.3, Absolute Lymphs (auto) 0.92, Nucleated RBC % 0 12/01/19 05:48: Sodium 139, Potassium 3.9, Chloride 107, Carbon Dioxide 26.0, Anion Gap 6, BUN 28 H, Creatinine 1.38 H, Estim Creat Clear Calc 45.43, Est GFR (MDRD) Af Amer 65, Est GFR (MDRD) Non-Af 54 L, BUN/Creatinine Ratio 20.3 H, Glucose 162 H, Calcium 8.5 12/01/19 06:38: POC Glucose 162 H 12/01/19 12:02: POC Glucose 289 H 12/01/19 17:00: POC Glucose 315 H Current Medications Acetaminophen (Tylenol) 650 mg PO Q6H PRN PRN PRN Reason: Pain Score 1-10/Temp > 100.7 F Last Admin: 12/01/19 13:32 Dose: 650 mg Documented by: Albuterol Sulfate (Ventolin Aerosols) 2.5 mg INHALATION Q2H PRN PRN PRN Reason: sob/wheezing Amiodarone HCl (Cordarone) [facility] Last Admin: 12/01/19 09:12 Dose: 200 mg Documented by: Aspirin (Ecotrin) 81 mg PO DAILY@0800 [facility] Last Admin: 12/01/19 09:13 Dose: 81 mg Documented by: Atorvastatin Calcium (Lipitor) 80 mg PO QHS [facility] Carvedilol (Coreg) 6.25 mg [facility] Last Admin: 12/01/19 17:13 Dose: 6.25 mg Documented by: Clopidogrel Bisulfate (Plavix) 75 mg PO DAILY [facility] Last Admin: 12/01/19 09:15 Dose: 75 mg Documented by: Colestipol HCl (Colestid Tablet) 1 gm PO BID [facility] Last Admin: 12/01/19 09:13 Dose: 1 gm Documented by: Dextrose (D50w Syringe) 0 gm IV X1 PRN; Protocol PRN Reason: Hypoglycemia Fenofibrate (Tricor) 145 mg PO DAILYCM [facility] Last Admin: 12/01/19 09:13 Dose: 145 mg Documented by: Furosemide (Lasix) 40 mg PO BIDLX [facility] Last Admin: 12/01/19 17:17 Dose: 40 mg Documented by: Gabapentin (Neurontin) 900 mg PO BID [facility] Last Admin: 12/01/19 09:15 Dose: 900 mg Documented by: Glucagon () 1 mg IM .X1 PRN PRN Reason: Hypoglycemia Cefazolin Sodium () 1 gm in 50 mls @ 100 mls/hr IV Q8 [facility] Last Infusion: 12/01/19 13:50 Dose: Infused Documented by: Sodium Chloride () 250 mls @ 15 mls/hr IV .[id number] PRN PRN Reason: Saline Flush Sodium Chloride () 250 mls @ 15 mls/hr IV .[id number] PRN PRN Reason: Additional IVPB Infusion Insulin Human Lispro (Humalog Kwikpen (Bkc)) 0 unit SC ACHS [facility]; Protocol Last Admin: 12/01/19 17:13 Dose: 3 units Documented by: Isosorbide Mononitrate (Imdur) 60 mg PO BID [facility] Last Admin: 12/01/19 09:12 Dose: 60 mg Documented by: Latanoprost (Xalatan Opthalmic) 1 drop EACH EYE QHS [facility] Lisinopril (Zestril) 10 mg PO DAILY [facility] Last Admin: 12/01/19 09:16 Dose: 10 mg Documented by: Multi-Ingredient Cream (Eucerin) 1 applic TOPICAL BID PRN [facility]; Protocol Nystatin (Mycostatin Powder) 1 applic TOPICAL BID [facility]; Protocol Last Admin: 12/01/19 09:14 Dose: 1 applicatio Documented by: Ondansetron HCl (Zofran) 4 mg IV Q8H PRN PRN PRN Reason: NAUSEA/VOMITING Pantoprazole Sodium (Protonix) 40 mg PO DAILY [facility] Last Admin: 12/01/19 09:15 Dose: 40 mg Documented by: Pramipexole Dihydrochloride (Mirapex) 0.25 mg PO DAILY [facility] Last Admin: 12/01/19 09:14 Dose: 0.25 mg Documented by: Ranolazine (Ranexa) 1,000 mg PO BID [facility] Last Admin: 12/01/19 09:16 Dose: 1,000 mg Documented by: Sodium Chloride () 10 - 40 ml IV UD PRN PRN Reason: SALINE FLUSH Last Admin: 12/01/19 00:59 Dose: 10 ml Documented by: Spironolactone (Aldactone) 25 mg PO DAILY [facility] Last Admin: 12/01/19 09:13 Dose: 25 mg Documented by: Trazodone HCl (Desyrel) 50 mg PO QHS [facility] Warfarin Sodium (Coumadin (Pbkc)) 7.5 mg PO DAILY@1700 [facility] Vital Signs/Narrative: Vital Signs Pulse 12/01/19 17:00 80 12/01/19 15:34 73 Addendum: Dr. Mari I personally examined the patient and reviewed the chart. I agree with the above. 74-year-old male with history of diabetes and paroxysmal A. fib presents to the hospital 3-day history of redness of his right leg. He underwent a Doppler ultrasound today which was negative for a DVT in the right leg. He says that he has had this happen before for a few months ago and it did get better with antibiotics. This is likely a very early onset of cellulitis given that he is afebrile without a leukocytosis. We will continue with IV antibiotics and continue to monitor. Inpatient E&M: [id number] [facility] L2
[2019-12-01] MEDS: Acetaminophen 325 MG Tablet 650 MG PO ×2 (13:32→22:26)
[2019-12-01 17:10] LABS: Bedside Glucose 315 mg/dL (70-110)
[2019-12-01 22:16] LABS: Bedside Glucose 309 mg/dL (70-110)
[2019-12-01] MEDS: Latanoprost 0.005% 1 Bottle 1 DRP EACH EYE (22:29)
[2019-12-01] MEDS: traZODone 50 MG Tablet PO (22:31)
[2019-12-01] MEDS: Atorvastatin Calcium 80 MG Tablet PO (22:32)
[2019-12-01] MEDS: Insulin NPH Human 100 UNITS/ML PEN 32 UNITS SC (22:47)
[2019-12-02] VITALS (10 sets, daily range): BP systolic 113–135; BP diastolic 55–87; PULSE 60–79; RESP 17–18; TEMP 36.6–37.1; O2SAT 96–99
[2019-12-02] MEDS: Cefazolin 1 GM/50 ML BAG IV ×3 (06:21→21:16)
[2019-12-02] MEDS: Insulin Lispro 100 UNIT/ML INSULN.PEN SC ×4 (06:22→21:19)
[2019-12-02] MEDS: Insulin Lispro 100 UNIT/ML INSULN.PEN 6 UNIT SC ×3 (06:23→16:38)
[2019-12-02 06:30] LABS: Bedside Glucose 251 mg/dL (70-110)
[2019-12-02 07:42] LABS: International Normalized Ratio 1.7; Prothrombin Time (Protime)PT. 19.6 SECONDS (11.7-14.9)
[2019-12-02] MEDS: Amiodarone 200 MG Tablet PO (09:43)
[2019-12-02] MEDS: Carvedilol 6.25 MG Tablet PO ×2 (09:44→16:37)
[2019-12-02] MEDS: Aspirin E.C. 81 MG Tablet PO (09:44)
[2019-12-02] MEDS: Isosorbide Mononitrate 60 MG Tablet PO ×2 (09:45→21:25)
[2019-12-02] MEDS: Spironolactone 25 MG Tablet PO (09:45)
[2019-12-02] MEDS: Gabapentin 300 MG Capsule 900 MG PO ×2 (09:45→21:23)
[2019-12-02] MEDS: Pantoprazole Sodium 40 MG Tablet PO (09:46)
[2019-12-02] MEDS: Clopidogrel Bisulfate 75 MG Tablet PO (09:46)
[2019-12-02] MEDS: Pramipexole Di-HCl 0.25 MG Tablet PO (09:46)
[2019-12-02] MEDS: Furosemide 40 MG Tablet PO ×2 (09:46→16:37)
[2019-12-02] MEDS: Nystatin Powder 15gm Bottle 1 APPLIC TOPICAL ×2 (09:46→21:20)
[2019-12-02] MEDS: Lisinopril 10 MG Tablet PO (09:47)
[2019-12-02] MEDS: Insulin NPH Human 100 UNITS/ML PEN 32 UNITS SC ×2 (09:47→21:21)
[2019-12-02] MEDS: Ranolazine 500 MG Tablet 1000 MG PO ×2 (09:47→21:24)
[2019-12-02] MEDS: Fenofibrate 145 MG Tablet PO (09:48)
[2019-12-02 11:30] LABS: Bedside Glucose 264 mg/dL (70-110)
--- NOTE | 2019-12-02 11:56 | PN_ITS ---
<Candido Nettles - Last Filed: 12/02/19 11:56> Patient Problems: Active and Suspected Problems (Last Reviewed 12/01/19 @ 03:[address] Esteban Cardenas MD) Cellulitis (Acute) Cellulitis (Acute) Reason for Visit: RLE cellulitis. Subjective: RLE erythema improved. cellulitic changes receding. No fever/chills. No SOB/cough. No Nausea/vomiting/or diarrhea. Pt does not feel he is ready to go home today. Vitals/I&O's: Vital Signs Temp Pulse Resp BP Pulse Ox 98.1 F 68 18 113/55 L 99 12/02/19 10:00 12/02/19 10:00 12/02/19 10:00 12/02/19 10:00 12/02/19 10:00 Oxygen Delivery Method Room Air Weight: 270 lb 0.99 oz Body Mass Index (BMI) 41.1 Finger Stick Blood Glucose 180 Intake and Output for Last 24 Hours 11/30/19 12/01/19 12/02/19 23:59 23:59 23:59 Intake Total 1200 / 1550 700 / 700 Balance 1200 / 1550 700 / 700 General: Alert, Oriented x3, Cooperative HEENT: Atraumatic, PERRLA, EOMI, Normocephalic Neck: Supple, No JVD, Negative Carotid Bruits Lungs: Clear to auscultation, Normal air movement Cardiovascular: Regular rate, No murmurs Abdomen: Bowel Sounds Present, Soft, Non Tender Extremities: Capillary Refill Less than 3 Seconds, Edema Skin: Ulcer/ Wound, - - erythema improved. no increased warmth. chronic venous stasis changes. Musculoskeletal: No Tenderness to Palpation of Joints or Extremities Neurological: Cranial nerves II-XII grossly intact Psych/Mental Status: Normal Affect, Appropriate, Alert and oriented to time, place, person, mood and affect Laboratory Results 12/01/19 12:02: POC Glucose 289 H 12/01/19 17:00: POC Glucose 315 H 12/01/19 22:03: POC Glucose 309 H 12/02/19 06:21: POC Glucose 251 H 12/02/19 06:37: PT 19.6 H, INR 1.7 12/02/19 11:25: POC Glucose 264 H Current Medications Acetaminophen (Tylenol) 650 mg PO Q6H PRN PRN PRN Reason: Pain Score 1-10/Temp > 100.7 F Last Admin: 12/01/19 22:26 Dose: 650 mg Documented by: Albuterol Sulfate (Ventolin Aerosols) 2.5 mg INHALATION Q2H PRN PRN PRN Reason: sob/wheezing [facility] Admin: 12/02/19 09:43 Dose: 200 mg Documented by: Aspirin (Ecotrin) 81 mg PO DAILY@0800 [facility] Last Admin: 12/02/19 09:44 Dose: 81 mg Documented by: Atorvastatin Calcium (Lipitor) 80 mg PO QHS [facility] Last Admin: 12/01/19 22:32 Dose: 80 mg Documented by: [facility] ([facility]) [facility] Last Admin: 12/02/19 09:44 Dose: 6.25 mg Documented by: Clopidogrel Bisulfate (Plavix) 75 mg PO DAILY [facility] Last Admin: 12/02/19 09:46 Dose: 75 mg Documented by: Colestipol HCl (Colestid Tablet) 1 gm PO BID [facility] Last Admin: 12/02/19 09:44 Dose: 1 gm Documented by: Dextrose (D50w Syringe) 0 gm IV X1 PRN; Protocol PRN Reason: Hypoglycemia Fenofibr[facility] ([facility]ricor) [facility] Last Admin: 12/02/19 09:48 Dose: 145 mg Documented by: Furosemide (Lasix) 40 mg PO BIDLX [facility] Last Admin: 12/02/19 09:46 Dose: 40 mg Documented by: Gabapentin (Neurontin) 900 mg PO BID [facility] Last Admin: 12/02/19 09:45 Dose: 900 mg Documented by: Glucagon () 1 mg IM .X1 PRN PRN Reason: Hypoglycemia Cefazolin Sodium () 1 gm in 50 mls @ 100 mls/hr IV Q8 [facility] Last Admin: 12/02/19 06:21 Dose: 100 mls/hr Documented by: Sodium Chloride () 250 mls @ 15 mls/hr IV .[id number] PRN PRN Reason: Saline Flush Sodium Chloride () 250 mls @ 15 mls/hr IV .[id number] PRN PRN Reason: Additional IVPB Infusion Insulin Human Lispro (Humalog Kwjignapen (Bkc)) 0 unit SC ACHS [facility]; Protocol Last Admin: 12/02/19 11:26 Dose: 2 units Documented by: Insulin Human Lispro (Humalog Kwikpen ([facility])) 6 unit SC TIDAC [facility] Last Admin: 12/02/19 11:27 Dose: 6 u Documented by: Insulin Human NPH (Humulin N ([facility])) 32 units SC BID [facility] Last Admin: 12/02/19 09:47 Dose: 32 u Documented by: Isosorbide Mononitrate (Imdur) 60 mg PO BID [facility] Last Admin: 12/02/19 09:45 Dose: 60 mg Documented by: Latanoprost (Xalatan Opthalmic) 1 drop EACH EYE QHS [facility] Last Admin: 12/01/19 22:29 Dose: 1 drop Documented by: Lisinopril (Zestril) 10 mg PO DAILY [facility] Last Admin: 12/02/19 09:47 Dose: 10 mg Documented by: Multi-Ingredient Cream (Eucerin) 1 applic TOPICAL BID PRN [facility]; Protocol Nystatin (Mycostatin Powder) 1 applic TOPICAL BID [facility]; Protocol Last Admin: 12/02/19 09:46 Dose: 1 applicatio Documented by: Ondansetron HCl (Zofran) 4 mg IV Q8H PRN PRN PRN Reason: NAUSEA/VOMITING Pantoprazole Sodium (Protonix) 40 mg PO DAILY [facility] Last Admin: 12/02/19 09:46 Dose: 40 mg Documented by: Pramipexole Dihydrochloride (Mirapex) 0.25 mg PO DAILY [facility] Last Admin: 12/02/19 09:46 Dose: 0.25 mg Documented by: Ranolazine (Ranexa) 1,000 mg PO BID [facility] Last Admin: 12/02/19 09:47 Dose: 1,000 mg Documented by: Sodium Chloride () 10 - 40 ml IV UD PRN PRN Reason: SALINE FLUSH Last Admin: 12/01/19 00:59 Dose: 10 ml Documented by: Spironolactone (Aldactone) 25 mg PO DAILY [facility] Last Admin: 12/02/19 09:45 Dose: 25 mg Documented by: Trazodone HCl (Desyrel) 50 mg PO QHS [facility] Last Admin: 12/01/19 22:31 Dose: 50 mg Documented by: Warfarin Sodium (Coumadin (Pbkc)) 7.5 mg PO DAILY@1700 [facility] Last Admin: 12/01/19 22:14 Dose: Not Given Documented by: STROKE Vital Signs/Narrative: Vital Signs Temp Pulse Resp BP Pulse Ox 12/02/19 10:00 98.1 F 68 18 113/55 L 99 Medical Necessity - Tobacco Use Smoking Status: Former smoker Assessment/Plan All Active Problems (Last Reviewed 12/01/19 @ 03:[address] Esteban Cardenas MD) Ulcer of right lower extremity with fat layer exposed (Resolved) Cellulitis of right leg (Resolved) Cellulitis (Acute) Cellulitis (Acute) 1. Acute RLE Cellulitis - no fever/leukocytosis. Minimal change. no fluid collection appreciated. continue ancef. Venous duplex neg. NIYA wrap BL LE. Refer to [place] care center at [place]. 2. Hx pAfib, pacemaker - on amio, coumadin. rate controlled. supplement warfarin today. 3. CAD - prior stents, continue coreg/asa/plavix/statin/ranexa/imdur 4. Hx chronic systolic CHF, ischemic CM - furosemide, aldactone, lisinopril. 5. HTN - stable 6. HLD - statin/tricor/colestipol DVT ppx: warfarin DC Planning: [place]HC [place]. This patient was seen by Candido Nettles PA-C under the supervision of Doctor Jacey. <Omari Mari F - Last Filed: 12/02/19 12:38> Vitals/I&O's: Vital Signs Temp Pulse Resp BP Pulse Ox 98.1 F 68 18 113/55 L 99 12/02/19 10:00 12/02/19 10:00 12/02/19 10:00 12/02/19 10:00 12/02/19 10:00 Oxygen Delivery Method Room Air Weight: 270 lb 0.99 oz Body Mass Index (BMI) 41.1 Finger Stick Blood Glucose 180 Intake and Output for Last 24 Hours 11/30/19 12/01/19 12/02/19 23:59 23:59 23:59 Intake Total 1200 / 1550 700 / 700 Balance 1200 / 1550 700 / 700 Laboratory Results 12/01/19 17:00: POC Glucose 315 H 12/01/19 22:03: POC Glucose 309 H 12/02/19 06:21: POC Glucose 251 H 12/02/19 06:37: PT 19.6 H, INR 1.7 12/02/19 11:25: POC Glucose 264 H Current Medications Acetaminophen (Tylenol) 650 mg PO Q6H PRN PRN PRN Reason: Pain Score 1-10/Temp > 100.7 F Last Admin: 12/01/19 22:26 Dose: 650 mg Documented by: Albuterol Sulfate (Ventolin Aerosols) 2.5 mg INHALATION Q2H PRN PRN PRN Reason: sob/wheezing Amiod[facility]) [facility] Last Admin: 12/02/19 09:43 Dose: 200 mg Documented by: Aspirin (Ecotrin) 81 mg PO DAILY@0800 [facility] Last Admin: 12/02/19 09:44 Dose: 81 mg Documented by: Atorvastatin Calcium (Lipitor) 80 mg PO QHS [facility] Last Admin: 12/01/19 22:32 Dose: 80 mg Documented by: Carvedilol (Coreg) [facility] Last Admin: 12/02/19 09:44 Dose: 6.25 mg Documented by: Clopidogrel Bisulfate (Plavix) 75 mg PO DAILY [facility] Last Admin: 12/02/19 09:46 Dose: 75 mg Documented by: Colestipol HCl (Colestid Tablet) 1 gm PO BID [facility] Last Admin: 12/02/19 09:44 Dose: 1 gm Documented by: Dextrose (D50w Syringe) 0 gm IV X1 PRN; Protocol PRN Reason: Hypoglycemia Fenofibrate (Tricor) [facility] Last Admin: 12/02/19 09:48 Dose: 145 mg Documented by: Furosemide (Lasix) 40 mg PO BIDLX [facility] Last Admin: 12/02/19 09:46 Dose: 40 mg Documented by: Gabapentin (Neurontin) 900 mg PO BID [facility] Last Admin: 12/02/19 09:45 Dose: 900 mg Documented by: Glucagon () 1 mg IM .X1 PRN PRN Reason: Hypoglycemia Cefazolin Sodium () 1 gm in 50 mls @ 100 mls/hr IV Q8 [facility] Last Admin: 12/02/19 06:21 Dose: 100 mls/hr Documented by: Sodium Chloride () 250 mls @ 15 mls/hr IV .[id number] PRN PRN Reason: Saline Flush Sodium Chloride () 250 mls @ 15 mls/hr IV .[id number] PRN PRN Reason: Additional IVPB Infusion Insulin Human Lispro (Humalog Kwikpen (Bkc)) 0 unit SC ACHS [facility]; Protocol Last Admin: 12/02/19 11:26 Dose: 2 units Documented by: Insulin Human Lispro (Humalog Kwikpen (Bkc)) 6 unit SC TIDAC [facility] Last Admin: 12/02/19 11:27 Dose: 6 u Documented by: Insulin Human NPH (Humulin N (Bk)) 32 units SC BID [facility] Last Admin: 12/02/19 09:47 Dose: 32 u Documented by: Isosorbide Mononitrate (Imdur) 60 mg PO BID [facility] Last Admin: 12/02/19 09:45 Dose: 60 mg Documented by: Latanoprost (Xalatan Opthalmic) 1 drop EACH EYE QHS [facility] Last Admin: 12/01/19 22:29 Dose: 1 drop Documented by: Lisinopril (Zestril) 10 mg PO DAILY [facility] Last Admin: 12/02/19 09:47 Dose: 10 mg Documented by: Multi-Ingredient Cream (Eucerin) 1 applic TOPICAL BID PRN [facility]; Protocol Nystatin (Mycostatin Powder) 1 applic TOPICAL BID [facility]; Protocol Last Admin: 12/02/19 09:46 Dose: 1 applicatio Documented by: Ondansetron HCl (Zofran) 4 mg IV Q8H PRN PRN PRN Reason: NAUSEA/VOMITING Pantoprazole Sodium (Protonix) 40 mg PO DAILY [facility] Last Admin: 12/02/19 09:46 Dose: 40 mg Documented by: Pramipexole Dihydrochloride (Mirapex) 0.25 mg PO DAILY [facility] Last Admin: 12/02/19 09:46 Dose: 0.25 mg Documented by: Ranolazine (Ranexa) 1,000 mg PO BID [facility] Last Admin: 12/02/19 09:47 Dose: 1,000 mg Documented by: Sodium Chloride () 10 - 40 ml IV UD PRN PRN Reason: SALINE FLUSH Last Admin: 12/01/19 00:59 Dose: 10 ml Documented by: Spironolactone (Aldactone) 25 mg PO DAILY [facility] Last Admin: 12/02/19 09:45 Dose: 25 mg Documented by: Trazodone HCl (Desyrel) 50 mg PO QHS [facility] Last Admin: 12/01/19 22:31 Dose: 50 mg Documented by: Warfarin Sodium (Coumadin (Pbkc)) 7.5 mg PO DAILY@1700 [facility] Last Admin: 12/01/19 22:14 Dose: Not Given Documented by: STROKE Vital Signs/Narrative: Vital Signs Temp Pulse Resp BP Pulse Ox 12/02/19 10:00 98.1 F 68 18 113/55 L 99 Addendum: Dr. Mari I personally examined the patient and reviewed the chart. I agree with the above. 74-year-old male with history of diabetes and paroxysmal A. fib presents to the hospital 3-day history of redness of his right leg. He underwent a Doppler ultrasound today which was negative for a DVT in the right leg. He says that he has had this happen before for a few months ago and it did get better with antibiotics. This is likely a very early onset of cellulitis given that he is afebrile without a leukocytosis. We will continue with IV antibiotics and continue to monitor. 12/02/2019: Doing well today, states that his lower extremity seems little bit better and that he is feeling better though not back to baseline. He has nervous about going home on oral antibiotics and would like 1 more day of IVs just to be sure that he will not have to come back to the hospital. Ultrasound of his leg was negative for DVT, will continue to adjust his Coumadin dosing to achieve a therapeutic INR. Inpatient E&M: [id number] [facility] L2
[2019-12-02] MEDS: Jantoven 2 MG Tablet PO (16:35)
[2019-12-02 18:06] LABS: Bedside Glucose 283 mg/dL (70-110)
[2019-12-02] MEDS: 0.9% Saline Lock 10 ML Syringe IV (21:16)
[2019-12-02] MEDS: Latanoprost 0.005% 1 Bottle 1 DRP EACH EYE (21:21)
[2019-12-02] MEDS: Atorvastatin Calcium 80 MG Tablet PO (21:24)
[2019-12-02] MEDS: traZODone 50 MG Tablet PO (21:25)
[2019-12-02 21:31] LABS: Bedside Glucose 248 mg/dL (70-110)
[2019-12-03 03:02] VITALS: PULSE 59
[2019-12-03 03:07] VITALS: BP 118/67; PULSE 63; RESP 16; TEMP 36.6; O2SAT 99
[2019-12-03] MEDS: Insulin Lispro 100 UNIT/ML INSULN.PEN SC (06:03)
[2019-12-03] MEDS: Cefazolin 1 GM/50 ML BAG IV (06:03)
[2019-12-03] MEDS: Insulin Lispro 100 UNIT/ML INSULN.PEN 6 UNIT SC (06:04)
[2019-12-03 06:41] LABS: Bedside Glucose 207 mg/dL (70-110)
[2019-12-03 07:44] LABS: Anion Gap 6 (5-15); BUN 34 mg/dL (7-18); BUN/Creat Ratio 23.9 RATIO (10-20); Calcium,Total 8.2 mg/dL (8.5-10.1); Chloride 102 mmol/L (98-107); Creatinine, Serum 1.42 mg/dL (0.70-1.30); EST Glomerular Filtration Rate 52 mL/min (>60); Est Glom Filt Rate - Afr Amer 63 mL/min (>60); Estimated Creatinine Clearance 44.15 ml/min; Glucose 207 mg/dL (74-106); Potassium 3.9 mmol/L (3.5-5.1); Sodium Level 136 mmol/L (136-145)
[2019-12-03 07:47] VITALS: PULSE 62
[2019-12-03 08:32] VITALS: BP 120/64; PULSE 66; RESP 18; TEMP 36.4; O2SAT 95
[2019-12-03] MEDS: Carvedilol 6.25 MG Tablet PO (08:36)
[2019-12-03] MEDS: Gabapentin 300 MG Capsule 900 MG PO (08:36)
[2019-12-03] MEDS: Furosemide 40 MG Tablet PO (08:36)
[2019-12-03] MEDS: Amiodarone 200 MG Tablet PO (08:36)
[2019-12-03] MEDS: Pantoprazole Sodium 40 MG Tablet PO (08:36)
[2019-12-03] MEDS: Ranolazine 500 MG Tablet 1000 MG PO (08:37)
[2019-12-03] MEDS: Isosorbide Mononitrate 60 MG Tablet PO (08:37)
[2019-12-03] MEDS: Nystatin Powder 15gm Bottle 1 APPLIC TOPICAL (08:37)
[2019-12-03] MEDS: Lisinopril 10 MG Tablet PO (08:38)
[2019-12-03] MEDS: Aspirin E.C. 81 MG Tablet PO (08:38)
[2019-12-03] MEDS: Fenofibrate 145 MG Tablet PO (08:38)
[2019-12-03] MEDS: Clopidogrel Bisulfate 75 MG Tablet PO (08:38)
[2019-12-03] MEDS: Pramipexole Di-HCl 0.25 MG Tablet PO (08:39)
[2019-12-03] MEDS: Spironolactone 25 MG Tablet PO (08:39)
[2019-12-03 08:42] LABS: International Normalized Ratio 1.7; Prothrombin Time (Protime)PT. 19.1 SECONDS (11.7-14.9)
[2019-12-03] MEDS: Insulin NPH Human 100 UNITS/ML PEN 32 UNITS SC (08:59)
--- NOTE | 2019-12-03 10:42 | PCM.DC ---
- Discharge Diagnoses Current Active Problems: Current Active and Chronic Problems (Last Reviewed 12/01/19 @ 03:[address] Esteban Cardenas MD) Cellulitis (Acute) Cellulitis (Acute) You will use the following diet at home:: Cardiac Your food should be the consistency of: Regular Your liquids should be the consistency of: Regular/Thin Discharge Activity: Return to Normal Activity, - - daily dressing changes Additional Instructions: Call your family medicine provider to have labs, INR tomorrow, and a CBC and BMP in 1 week. Allergies/Adverse Reactions: Allergies ceftriaxone sodium [From Rocephin] Allergy (Verified 11/30/19 19:31) Rash milk Adverse Reaction (Verified 11/30/19 19:31) Diarrhea morphine Adverse Reaction (Verified 11/30/19 19:31) hallucinations Medications to take at Discharge Clopidogrel Bisulfate [Plavix] 75 mg PO DAILY 12/04/14 Insulin Lispro [Humalog] 17 unit SQ TIDCM 08/25/17 carvedilol 6.25 mg tablet 6.25 mg PO BID #180 tab 10/11/18 Aspirin E.C. [Ecotrin] 81 mg PO DAILY@0800 11/17/18 Latanoprost 1 drp EACH EYE QHS 11/17/18 Warfarin Sodium 6 mg PO SUTUTHSA 11/17/18 Colestipol Tablet [Colestid Tablet] 1 gm PO BID 12/02/18 Fenofibrate Nanocrystallized [Tricor] 145 mg PO DAILY 12/02/18 Insulin NPH Human Isophane [Humulin N Vial] 32 units SQ BID 12/02/18 Ranolazine [Ranexa] 1,000 mg PO BID 12/02/18 Furosemide [Lasix] 40 mg PO BID #60 tab 12/06/18 spironolactone 25 mg tablet 25 mg PO DAILY #90 tab 12/16/18 trazodone 50 mg tablet 50 mg PO QHS tab 01/28/19 pantoprazole 40 mg tablet,delayed release 40 mg PO DAILY #90 tab 04/27/19 Ropinirole HCl [Requip] 0.5 mg PO DAILY 09/05/19 Warfarin Sodium [Jantoven] 3 mg PO MOWEFR 09/05/19 isosorbide mononitrate 60 mg tablet,extended release 24 hr 60 mg PO BID #180 tab 10/07/19 nitroglycerin 0.4 mg sublingual tablet 0.4 mg SUBLINGUAL Q5M PRN #25 tab 10/07/19 amlodipine 5 mg tablet 5 mg PO DAILY #30 tab 10/27/19 gabapentin 300 mg capsule 900 mg PO BID cap 10/27/19 lisinopril 20 mg tablet 10 mg PO DAILY tab 10/27/19 Amiodarone HCl 200 mg PO DAILY 11/30/19 Rosuvastatin Calcium 40 mg PO QHS 11/30/19 Cephalexin [Keflex] 500 mg PO TID #7 cap 12/03/19 The following prescriptions were given: Cephalexin [Keflex] 500 mg PO TID #7 cap Transmission Status: Pending to [id number] Primary Care Physician: Gilbert Keyes III, MD [Primary Care Provider] - Please follow up with your Primary Care Physician in: 1-2 weeks Test Results: Test results from this visit will be discussed in further detail at your follow-up appointment, if applicable. Please Follow Up With: Wound care center When: Thursday Proposed Discharge Date: 12/03/19
[2019-12-03 11:08] VITALS: PULSE 65
--- NOTE | 2019-12-03 11:41 | CM.UR ---
Discussed patient with CELESTE Rios. Patient will be switched to po antibiotic and discharged to home today with resumption of HHC. Has [facility] appointment for next week scheduled. Christina Reeves RN, CCM.
--- NOTE | 2019-12-03 12:23 | DS.PCM_ITS ---
<Geraldine Parisi - Last Filed: 12/03/19 13:16> Discharge Date and Diagnosis - Secondary Discharge Diagnosis Chronic Problems: Chronic Problems (Last Reviewed 12/01/19 @ 03:[address] 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 Hypertension (Chronic) History of congestive heart failure (Chronic) Ulcer of right lower extremity with fat layer exposed (Chronic) Localized edema (Chronic) Nondisp fracture of fifth left metatarsal bone with routine healing (Chronic) Walking difficulty due to ankle and foot (Chronic) Atherosclerotic heart disease of [place] coronary artery with other forms of angina pectoris (Chronic) [id number] Cx; PCI-Cutting Balloon Angioplasty of ISR-ostium of prox lat CX 11/22/02; PCI-stent to proximal OM 01/2008; PCI- [id number] OM 12/15/13;LHC w/FFR of LAD, D1, LCx 05/30/2016 Old inferior wall myocardial infarction (Chronic) Ischemic cardiomyopathy (Chronic) History of coronary artery stent placement (Chronic 12/15/14) [id number]; PCI-Cutting Balloon Angioplasty of ISR-ostium of prox OM1 11/22/02; PCI-stent to proximal OM1 01/2008; PCI- [id number] OM1 w/ 2.5 x 12 mm Promus Premier 12/15/14 History of implantable cardiac defibrillator (ICD) (Chronic 11/19/17) 11/23/2002, Generator change 2017 Acute systolic (congestive) heart failure (Chronic) Paroxysmal atrial flutter (Chronic) Nonsustained ventricular tachycardia (Chronic) Hyperlipidemia (Chronic) Hospital Course and Treatment Summary of Care Provided: Patient seen by Candido Nettles PA-C under my supervision The patient is a 74 year old M with a past medical history as outlined who was admitted through the ED on 11/30/2019 with a complaint of erythema of the right lower extremity for 3 days prior to admission. He had a still swelling and pain and described the pain as a burning sensation. He was admitted and managed for cellulitis of the right lower extremity and started on IV cefazolin. Duplex of the right lower extremity was negative for any DVT. He did not have any leukocytosis. Redness, pain and swelling subsequently improved markedly. He remained stable and was discharged him on 12/03/2019. He was discharged with a prescription for p.o. Keflex. He is to follow-up with his primary care doctor in 1 to 2 weeks. Patient seen and examined prior to discharge. He had no complaints and wanted to be discharged and said redness, pain and swelling had improved. Review of symptoms otherwise negative. Labs and vitals reviewed. Home medication reviewed and reconciled. O/E: Vital Signs Temp Pulse Resp BP Pulse Ox 97.6 F L 65 18 120/64 95 12/03/19 08:32 12/03/19 11:08 12/03/19 08:32 12/03/19 08:32 12/03/19 08:32 [] General: Alert, Oriented x3, Cooperative HEENT: Atraumatic, PERRLA, EOMI, Normocephalic Neck: Supple, No JVD, Negative Carotid Bruits Lungs: Clear to auscultation, Normal air movement Cardiovascular: Regular rate, No murmurs Abdomen: Bowel Sounds Present, Soft, Non Tender Extremities: Capillary Refill Less than 3 Seconds, Edema Skin: RLE wrapped in bandage. No visible erythema. Musculoskeletal: No Tenderness to Palpation of Joints or Extremities Neurological: Cranial nerves II-XII grossly intact Psych/Mental Status: Normal Affect, Appropriate, Alert and oriented to time, place, person, mood and affect Plan is for discharge home as above. Rest as per Candido Nettles PA-C's note, which I have reviewed and endorsed. - Physical Exam Vitals/I&O's: Vital Signs Temp Pulse Resp BP Pulse Ox 97.6 F L 65 18 120/64 95 12/03/19 08:32 12/03/19 11:08 12/03/19 08:32 12/03/19 08:32 12/03/19 08:32 Oxygen Delivery Method Room Air Weight: 270 lb 0.99 oz Body Mass Index (BMI) 41.1 Finger Stick Blood Glucose 180 Intake and Output for Last 24 Hours 12/01/19 12/02/19 12/03/19 23:59 23:59 23:59 Intake Total 1200 / 1550 1150 / 1150 700 / 700 Balance 1200 / 1550 1150 / 1150 700 / 700 Laboratory Results 12/02/19 16:39: POC Glucose 283 H 12/02/19 21:15: POC Glucose 248 H 12/03/19 06:02: POC Glucose 207 H 12/03/19 06:40: PT 19.1 H, INR 1.7 12/03/19 06:40: Sodium 136, Potassium 3.9, Chloride 102, Carbon Dioxide 28.0, Anion Gap 6, BUN 34 H, Creatinine 1.42 H, Estim Creat Clear Calc 44.15, Est GFR (MDRD) Af Amer 63, Est GFR (MDRD) Non-Af 52 L, BUN/Creatinine Ratio 23.9 H, Glucose 207 H, Calcium 8.2 L 12/03/19 06:40: PT Cancelled, INR Cancelled Discharge Diet: Low fat/ Low Cholesterol Home Medications: Medications to take at Discharge Clopidogrel Bisulfate [Plavix] 75 mg PO DAILY 12/04/14 Insulin Lispro [Humalog] 17 unit SQ TIDCM 08/25/17 carvedilol 6.25 mg tablet 6.25 mg PO BID #180 tab 10/11/18 Aspirin E.C. [Ecotrin] 81 mg PO DAILY@0800 11/17/18 Latanoprost 1 drp EACH EYE QHS 11/17/18 Warfarin Sodium 6 mg PO SUTUTHSA 11/17/18 Colestipol Tablet [Colestid Tablet] 1 gm PO BID 12/02/18 Fenofibrate Nanocrystallized [Tricor] 145 mg PO DAILY 12/02/18 Insulin NPH Human Isophane [Humulin N Vial] 32 units SQ BID 12/02/18 Ranolazine [Ranexa] 1,000 mg PO BID 12/02/18 Furosemide [Lasix] 40 mg PO BID #60 tab 12/06/18 spironolactone 25 mg tablet 25 mg PO DAILY #90 tab 12/16/18 trazodone 50 mg tablet 50 mg PO QHS tab 01/28/19 pantoprazole 40 mg tablet,delayed release 40 mg PO DAILY #90 tab 04/27/19 Ropinirole HCl [Requip] 0.5 mg PO DAILY 09/05/19 Warfarin Sodium [Jantoven] 3 mg PO MOWEFR 09/05/19 isosorbide mononitrate 60 mg tablet,extended release 24 hr 60 mg PO BID #180 tab 10/07/19 nitroglycerin 0.4 mg sublingual tablet 0.4 mg SUBLINGUAL Q5M PRN #25 tab 10/07/19 amlodipine 5 mg tablet 5 mg PO DAILY #30 tab 10/27/19 gabapentin 300 mg capsule 900 mg PO BID cap 10/27/19 lisinopril 20 mg tablet 10 mg PO DAILY tab 10/27/19 Amiodarone HCl 200 mg PO DAILY 11/30/19 Rosuvastatin Calcium 40 mg PO QHS 11/30/19 Cephalexin [Keflex] 500 mg PO TID #7 cap 12/03/19 Following Prescriptions Were Given to Patient: Cephalexin [Keflex] 500 mg PO TID #7 cap Transmission Status: Received by [id number] Primary Care Physician: Gilbert Keyes III, MD [Primary Care Provider] - Disposition: Home Meaningful Use Info Meaningful Use Diagnoses (Choose all that apply): None applicable Inpatient E&M: 23292 Disch Hosp <Candido Nettles PA - Last Filed: 12/03/19 14:11> Discharge Date and Diagnosis Date of Admission: 11/30/19 Date of Discharge: 12/03/19 - Primary Discharge Diagnosis Acute Problems: Right lower extremity cellulitis complicated by underlying severe venous stasis disease 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 Hypertension (Chronic) History of congestive heart failure (Chronic) Ulcer of right lower extremity with fat layer exposed (Chronic) Localized edema (Chronic) Nondisp fracture of fifth left metatarsal bone with routine healing (Chronic) Walking difficulty due to ankle and foot (Chronic) Atherosclerotic heart disease of [place] coronary artery with other forms of angina pectoris (Chronic) [id number] Cx; PCI-Cutting Balloon Angioplasty of ISR-ostium of prox lat CX 11/22/02; PCI-stent to proximal OM 01/2008; PCI- [id number] OM 12/15/13;LHC w/FFR of LAD, D1, LCx 05/30/2016 Old inferior wall myocardial infarction (Chronic) Ischemic cardiomyopathy (Chronic) History of coronary artery stent placement (Chronic 12/15/14) [id number]; PCI-Cutting Balloon Angioplasty of ISR-ostium of prox OM1 11/22/02; PCI-stent to proximal OM1 01/2008; PCI- [id number] OM1 w/ 2.5 x 12 mm Promus Premier 12/15/14 History of implantable cardiac defibrillator (ICD) (Chronic 11/19/17) 11/23/2002, Generator change 2017 Acute systolic (congestive) heart failure (Chronic) Paroxysmal atrial flutter (Chronic) Nonsustained ventricular tachycardia (Chronic) Hyperlipidemia (Chronic) Hospital Course and Treatment Imaging Results: Venous duplex: Interpretation Summary There is no evidence of right lower extremity deep vein thrombosis. Right below- knee great saphenous vein is patent and compressible Exam was noted to be technically difficult Operations: None Procedures: None Summary of Care Provided: Hospital course: The patient is a 74 year old M past medical history of VTE on warfarin, venous insufficiency, schema cardiomyopathy, AICD in place, systolic congestive heart failure, paroxysmal atrial fibrillation, presented the emergency room with redness and swelling of the right lower extremity. He had noticed this over the past 3 days. He was following with the wound care center and had home wound care nurses for Marcia venous disease. Patient had no fever or leukocytosis. He was felt to have a cellulitis of the right lower extremity. He was started on Ancef and admitted to the general medical floor. The patient's INR was subtherapeutic and with his history of VTE we are concerned for underlying DVT. Right lower extremity venous duplex was ordered and was negative for DVT. Patient's erythema gradually improved with IV Ancef. He was transitioned to oral Keflex and will complete a total of 7 days of therapy. We advised that he keep his follow-up appointment with the wound care center this week, and resume home health care for ongoing wound care at home. He was advised to continue to use Terry wraps and compression for his chronic swelling of his lower extremities daily. He was discharged home in stable condition. Follow-up with PCP in 1 to 2 weeks. This patient was seen by Candido Nettles PA-C under the supervision of Doctor Parisi. [] - Physical Exam Vitals/I&O's: Vital Signs Temp Pulse Resp BP Pulse Ox 97.6 F L 65 18 120/64 95 12/03/19 08:32 12/03/19 11:08 12/03/19 08:32 12/03/19 08:32 12/03/19 08:32 Oxygen Delivery Method Room Air Weight: 270 lb 0.99 oz Body Mass Index (BMI) 41.1 Finger Stick Blood Glucose 180 Intake and Output for Last 24 Hours 12/01/19 12/02/19 12/03/19 23:59 23:59 23:59 Intake Total 1200 / 1550 1150 / 1150 700 / 700 Balance 1200 / 1550 1150 / 1150 700 / 700 General: Alert, Oriented x3, Cooperative HEENT: Atraumatic, PERRLA, EOMI, Normocephalic Neck: Supple, No JVD, Negative Carotid Bruits Lungs: Clear to auscultation, Normal air movement Cardiovascular: Regular rate, No murmurs Abdomen: Bowel Sounds Present, Soft, Non Tender Extremities: Capillary Refill Less than 3 Seconds, Edema - Bilateral lower extremity edema with chronic venous stasis changes present, small nickel sized open wound right lower extremity no drainage at this time. Skin: No rashes, No breakdown Musculoskeletal: No Tenderness to Palpation of Joints or Extremities Neurological: Cranial nerves II-XII grossly intact Psych/Mental Status: Normal Affect, Appropriate Laboratory Results 12/02/19 16:39: POC Glucose 283 H 12/02/19 21:15: POC Glucose 248 H 12/03/19 06:02: POC Glucose 207 H 12/03/19 06:40: PT 19.1 H, INR 1.7 12/03/19 06:40: Sodium 136, Potassium 3.9, Chloride 102, Carbon Dioxide 28.0, Anion Gap 6, BUN 34 H, Creatinine 1.42 H, Estim Creat Clear Calc 44.15, Est GFR (MDRD) Af Amer 63, Est GFR (MDRD) Non-Af 52 L, BUN/Creatinine Ratio 23.9 H, Glucose 207 H, Calcium 8.2 L 12/03/19 06:40: PT Cancelled, INR Cancelled Discharge Diet: Low fat/ Low Cholesterol, 2000 mg Sodium Diet Discharge Activity: Return to Normal Activity, - - daily dressing changes Please follow up with your Primary Care Physician in: 1-2 weeks Please Follow Up With: Wound care center When: Thursday Disposition: Home with Home Health Medical Necessity - Tobacco Use Smoking Status: Former smoker Meaningful Use Info Meaningful Use Diagnoses (Choose all that apply): None applicable
--- NOTE | 2019-12-06 12:28 | CASEMGMT ---
DIANA DC PHONE CALL DC DATE: 12/03/2019 DC DISPOSITION: Home with [facility] DIAGNOSIS: Cellulitis LACE/STRATA: 09/06 F/U APPTS MADE PRIOR TO DC: no, weekend discharge Call deferred. Transition of care for discharge through [facility]. Sabrina TSAIN RN AC
== END 2019-12-03 12:00 | disposition home or self-care (01) | DRG 603 ==
LOC: ED 22:10 → MS3 23:34
PROVIDERS: Family Medicine; Physician Assistant; Admitting Provider Hospitalist; Emergency Provider Emergency Medicine; PCP Family Medicine; Visit Provider Student in an Organized Health Care Education/Training Program
DX: L03.115 Cellulitis of right lower limb (principal); I13.0 Hypertensive heart and chronic kidney disease with heart failure and stage 1 through stage 4 chronic kidney disease, or unspecified chronic kidney disease; I50.22 Chronic systolic (congestive) heart failure; Z68.41 Body mass index [BMI] 40.0-44.9, adult; I47.2 Ventricular tachycardia; Z86.73 Personal history of transient ischemic attack (TIA), and cerebral infarction without residual deficits; Z95.5 Presence of coronary angioplasty implant and graft; E11.22 Type 2 diabetes mellitus with diabetic chronic kidney disease; N18.3 Chronic kidney disease, stage 3 (moderate); Z95.810 Presence of automatic (implantable) cardiac defibrillator; Z79.01 Long term (current) use of anticoagulants; E78.00 Pure hypercholesterolemia, unspecified; Z87.891 Personal history of nicotine dependence; Z86.718 Personal history of other venous thrombosis and embolism; E78.5 Hyperlipidemia, unspecified; I25.118 Atherosclerotic heart disease of native coronary artery with other forms of angina pectoris; I48.0 Paroxysmal atrial fibrillation; I25.5 Ischemic cardiomyopathy; E11.69 Type 2 diabetes mellitus with other specified complication; E66.01 Morbid (severe) obesity due to excess calories; E11.40 Type 2 diabetes mellitus with diabetic neuropathy, unspecified; I25.2 Old myocardial infarction; L84 Corns and callosities; L85.3 Xerosis cutis; I87.2 Venous insufficiency (chronic) (peripheral); Z79.02 Long term (current) use of antithrombotics/antiplatelets; Z79.4 Long term (current) use of insulin; Z79.82 Long term (current) use of aspirin; Z79.899 Other long term (current) drug therapy
CPT/HCPCS: 36415; 80048; 82962; 85025; 85610; 93971; 97116; 97162; 97530; 97802; 99284; J7040; A4216

== ENCOUNTER → 2019-12-06 14:42 | Outpatient (CLI) | payer MEDICARE, OTHER, SELFPAY ==
[2017-11-06 10:25] VITALS: BMI 37.2
[2019-11-23 14:51] VITALS: BMI 39.8
[2019-11-30 23:01] VITALS: BMI 41.1
--- NOTE | 2019-12-06 14:45 | CT_ITS ---
HISTORY: ATHEROSCHLEROSIS OF [place] ARTERIES OF LT LEG, PREV LT FOOT FX, HTN, CAD, ICD, DB EXAMINATION: CTA Abdominal Aorta and Bilateral Iliofemoral LE Runoff W/ Contrast Injection (and W/O Contrast Images if performed) TECHNIQUE: Helically acquired images of the abdomen, pelvis and bilateral lower extremities was performed using a CTA runoff protocol. Multiple 2D and 3D reconstructions were performed. A dose reduction technique was utilized. IV Contrast dosage and agent: IV 100mL [id number] COMPARISON: A CT angiogram of the chest was performed on September 05, 2019. That study it extended down to the level of the renal arteries. A CT scan of the abdomen and pelvis is available from August 25, 2017. No previous angiography of the lower extremities. FINDINGS: --Vascular: AORTA: Atherosclerotic calcific plaque is present throughout the abdominal aorta without aneurysm or dissection or significant stenosis CELIAC ARTERY: No occlusion, significant stenosis, or dissection. SUPERIOR MESENTERIC ARTERY: No occlusion, significant stenosis, or dissection. RENAL ARTERIES: 2 right and one left renal artery are widely patent. There is some calcific plaque but without significant contribution to significant renal artery stenosis INFERIOR MESENTERIC ARTERY: No occlusion, significant stenosis, or dissection. --Right Lower Extremity: COMMON ILIAC ARTERY: Severe calcific plaque is present within the right common iliac artery. 30% stenosis is present within the right common iliac artery through much of its length. EXTERNAL/INTERNAL ILIAC ARTERY: Atherosclerotic plaque is present within the right external iliac artery. There is a focal dissection within the right external iliac artery. The dissection extends for a few centimeters, and terminates above the right common femoral artery COMMON FEMORAL ARTERY: No occlusion, significant stenosis, or dissection. PROFUNDA FEMORAL ARTERY: No occlusion, significant stenosis, or dissection. SUPERFICIAL FEMORAL ARTERY: No occlusion, significant stenosis, or dissection. POPLITEAL ARTERY: Atherosclerotic plaque is fairly severe within the intracranial portions of the popliteal artery but without significant stenosis TRIFURCATION/CALF: The anterior tibial artery, tibioperoneal trunk, posterior tibial artery, and peroneal artery are patent at their origin. There are areas of occlusion and reconstitution to the right anterior tibial artery. It is patent at the origin of the right dorsalis pedis and does supply flow to the dorsal surface of the foot. The peroneal artery occludes at the ankle. The right posterior tibial artery remains patent to the plantar surface of the foot. --Left Lower Extremity: COMMON ILIAC ARTERY: No occlusion, significant stenosis, or dissection. There is calcific plaque within the left common iliac artery. It is most severe distally where it causes a 50% stenosis just above its furcation. EXTERNAL/INTERNAL ILIAC ARTERY: No occlusion, significant stenosis, or dissection. COMMON FEMORAL ARTERY: No occlusion, significant stenosis, or dissection. The PROFUNDA FEMORAL ARTERY: No occlusion, significant stenosis, or dissection. SUPERFICIAL FEMORAL ARTERY: The downstream portions of the left superficial femoral artery are smaller than those on the right, but the amount of atherosclerotic plaque within the left superficial femoral artery is less amount of the right POPLITEAL ARTERY: The left popliteal artery is smaller than the right. There is an area of breast 30-50% stenosis within the origin of the left popliteal artery and then additional areas of stenoses as it courses behind the knee. TRIFURCATION/CALF: The anterior tibial artery is patent. The tibioperoneal trunk is stenotic with atherosclerotic plaque. The left anterior tibial, left peroneal, left posterior tibial arteries are patent as they course inferiorly within the calf. The left peroneal artery occludes first above the ankle. The left posterior tibial artery occludes above the ankle. Left anterior tibial artery provides flow to the left dorsalis pedis. Knee arthritis. Ankle arthritis. Hip arthritis. --Abdomen/Pelvis: LOWER CHEST: Lung bases demonstrate age-related fibrotic lung disease. Cardiomegaly. Coronary artery disease. Coronary artery stenting. No pericardial or pleural effusion. Atherosclerotic plaque continues into the thoracic aorta. Possible left ventricular dilatation LIVER: Homogeneous. No focal mass. GALLBLADDER AND BILIARY TREE: No calcified gallstones. No gallbladder distension or wall edema. No intra- or extrahepatic biliary ductal dilation. PANCREAS: No focal cystic or solid mass. SPLEEN: Normal size without focal cystic or solid mass. ADRENAL GLANDS: No nodules. KIDNEYS AND URETERS: Normal renal size and position. No hydronephrosis. PERITONEUM: No ascites or free air. No other fluid collection. BOWEL: No evidence of acute appendicitis. No stomach or bowel distension. No focal inflammatory change. LYMPH NODES: No enlarged mesenteric or retroperitoneal lymph nodes. URINARY BLADDER: Unremarkable. REPRODUCTIVE ORGANS: No pelvic masses. ABDOMINAL WALL: There is some edema within the anterior abdominal wall. To the right and superior to the umbilicus there may be some minimal skin thickening with slightly more severe subcutaneous edema. This is mild disease Multilevel degenerative disc disease. Vertebral body height is fairly well-preserved. Many right-sided bridging enthesophytes within the thoracic spine. Facet arthropathy. Vacuum disc phenomenon at the L5-S1 level and the L1-L2 level. BONES: No lytic or blastic abnormality. CT/CTA Abd w/Runoff W/WO Contrast IMPRESSION: Atherosclerotic plaque within the abdominal aorta. Plaque is more severe in the iliac arteries where cause to 50% stenosis. There is a short segment of localized dissection within the right external iliac artery. It is confined to the right external iliac artery, and does not extend into the right common femoral artery Occlusions and reconstitution in occlusions and reconstitution at at least 2 levels within the right anterior tibial artery. It is patent above the ankle and provides flow to the right dorsalis pedis. The right posterior tibial artery is patent to the plantar surface of the foot. A smaller left superficial femoral artery than the right, but with less plaque. Several stenoses up to 50% within the left popliteal artery but with patency. Occlusion of the left peroneal artery within the proximal left calf. Shortly thereafter the left posterior tibial artery occludes above the ankle. Left anterior tibial artery remains patent to the left dorsalis pedis. There is severe atrophy to the soleus and gastrocnemius muscles within the left calf. Edema within both calves. 1. Negative CTA Runoff of the Abdomen, Pelvis, and Lower Extremities. Individualized dose optimization techniques were used for this CT. at 0552 Reported and signed by: Jimbo Mcdowell MD Electronically Signed: Jimbo Mcdowell MD at 5:51 EDT Tel , Service support ,
== END ==
PROVIDERS: PCP Family Medicine; Referring Provider Surgery Vascular Surgery; Visit Provider Surgery Vascular Surgery
DX: I70.245 Atherosclerosis of native arteries of left leg with ulceration of other part of foot (principal)
CPT/HCPCS: 75635; Q9967

== ENCOUNTER 2019-12-21 10:30 | Outpatient (RCR) | payer MEDICARE, OTHER, SELFPAY ==
[2017-11-06 10:25] VITALS: BMI 37.2
[2019-11-29 00:38] VITALS: BP 138/75; PULSE 76; RESP 16; TEMP 35.9
[2019-12-06 16:03] VITALS: BMI 41.1
[2019-12-07 13:59] VITALS: BP 136/74; PULSE 79; RESP 18; TEMP 36.8; BMI 41.1
--- NOTE | 2019-12-07 15:59 | PCM.WC.PN ---
(1) Ulcer of right lower extremity Status: Acute Current Visit: Yes Qualifiers: Non-pressure ulcer stage: with fat layer exposed Qualified Code(s): L97.912 - Non-pressure chronic ulcer of unspecified part of right lower leg with fat layer exposed Code(s): L97.919 - Non-pressure chronic ulcer of unspecified part of right lower leg with unspecified severity Comment: New, anterior more distal site (2) Peripheral vascular disease Status: Suspected Current Visit: Yes Code(s): I73.9 - Peripheral vascular disease, unspecified (3) Ulcer of left lower extremity with fat layer exposed Status: Resolved Current Visit: Yes Code(s): L97.922 - Non-pressure chronic ulcer of unspecified part of left lower leg with fat layer exposed Type of Wound Date of Service: 12/07/19 Chief Complaint: Right leg ulcer new at a different location anterior lower leg. left leg ulcer follow-up. Left foot fracture delayed and non healing. Vascular disease History of Wound: This is a 74-year-old white male with multiple comorbidities was seen wound healing center today for right leg ulcer. He denies current fever, chill, nausea, vomiting. He has been applying Lac-Hydrin lotion to legs daily with significant improvement in skin integrity. He has peripheral vascular disease and lower extremity edema as well. He also has a new lower leg ulcer to the left sahu in which he denies redness or odor. He denies new injuries. He has reached out to the vascular office and relates he is waiting for callback to get scheduled. He also has a nonhealing left foot fracture in which she is following at the foot and ankle center. A bone stimulator was recently ordered. Relates he had additional vascular testing including a CT performed yesterday and he is waiting to hear the results from his vascular surgeon. Progress of Wound: New right leg ulcer at a different location. healed left leg - Physical Exam Vital Signs Temp Pulse Resp BP 98.3 F 79 18 136/74 H 12/07/19 13:59 12/07/19 13:59 12/07/19 13:59 12/07/19 13:59 General: Alert, Oriented x3, Cooperative, No apparent distress HEENT: Atraumatic Extremities: No cyanosis, Capillary Refill Less than 3 Seconds, No Calf Tenderness, Diminished Peripheral Pulses, Edema Skin: Ulcer/ Wound - No purulence, erythema, streaking, odor, infection. New skin discontinuity to distal anterior right leg with granular tissue noted without necrosis or deep tissue exposure. No bogginess or fluctuance on palpation. Prior ulcer site to left leg is fully healed and there is full epithelialization noted. His skin is atrophic, hairless, and hyperpigmented Wound Measurements and Assessment - Nurse 1 - General Ulcer Measurement Start: 12/07/19 13:52 Freq: Status: Active Protocol: Activity Type Activity Date Activity User E-Sign Co-Sign Detail Recorded Client Recorded Date Recorded By Document 12/07/19 13:52 RB [id number] 12/07/19 13:59 RB 12/07/19 13:52 Wound Center Nurse 1 [Ulcer Assessment] 5-Right sahu -Combined with other wound No -Current Size (cm) - Length 0.1 -Current Size (cm) - Width 0.1 -Current Size (cm) - Depth 0.1 -Total Square Cm 0.01 -Epithelialization Large 67-100% -Tunneling No -Undermining/Tunneling No -Exudate Amt None Present -Wound Margin Flat & Intact -Granulation Amt Large (67-100%) -Granulation Quality [place] -Slough/Fibrin Yes -Necrosis Amt Small (1-33%) -Necrotic Tissue Type Adherent Slough -Structure Exposed N/A -Texture (Faviola-wound Skin Appearance) Assessed -Moisture (Faviola-wound Skin Appearance Assessed ) -Color (Faviola-wound Skin Appearance) Assessed -Temperature (Faviola-wound Skin No Abnormality Appearance) (Pt Warm) -Tenderness on Palpation (Faviola-wound No Skin Appearance) -Ulcer Cleansing Wound Cleanser -Foul Odor after Cleansing No -Anesthetic Used 4% Lidocaine Solution [Edema Assessment] -Lower Limb Edema Present Yes -Right Calf (cm) 49.5 -Right Ankle (cm) 25.5 -Left Calf (cm) 38.2 -Left Ankle (cm) 22 - Nurse 2 - General Ulcer CM Notes Start: 12/07/19 13:52 Freq: Status: Active Protocol: Activity Type Activity Date Activity User E-Sign Co-Sign Detail Recorded Client Recorded Date Recorded By Document 12/07/19 14:14 [email or web address] [id number] 12/07/19 14:18 12/07/19 14:14 Wound Center Nurse 2 [Procedure/Treatment] 4-left sahu -Correct Patient No -Correct Side, Site, Position No -Correct Procedure No -Procedure Performed No -Post Debridement (cm) - Length 0 -Post Debridement (cm) - Width 0 -Post Debridement (cm) - Depth 0 -Total Square (Post) (cm) 0 -Area of Debridement (cm) - Length 0 -Area of Debridement (cm) - Width 0 -Total Square (Area) (cm) 0 -Wound/Ulcer Outcome Healed- Epithelialized 5-Right sahu -Time 14:15 -Correct Patient Yes -Correct Side, Site, Position Yes -Correct Procedure Yes -Procedure Performed Yes -Type of Procedure Debridement -Clinical Debridement Subcutaneous -Tissue Removed Subcutaneous -Post Debridement (cm) - Length 0.6 -Post Debridement (cm) - Width 0.5 -Post Debridement (cm) - Depth 0.1 -Total Square (Post) (cm) 0.30 -Area of Debridement (cm) - Length 0.6 -Area of Debridement (cm) - Width 0.5 -Total Square (Area) (cm) 0.30 -Tunneling No -Undermining/Tunneling No -Circular Undermining No -Wound/Ulcer Outcome Not Healed -Ulcer Cleansing Rinsed/ Irrigated with Saline -Foul Odor after Cleansing No -Bioengineered Tissue No -Bleeding Controlled with Pressure -Offloading No -Treatment Response Procedure Tolerated Well -Debridement - Subq, 1st 20sq cm Yes [See Physician Procedure note for Specifics] Pain Scale: 0-10 Numeric [Pain] -Is Patient Pain Free? Yes WC - Nurse 3 - General Ulcer D/C NN Start: 12/07/19 13:52 Freq: Status: Active Protocol: Activity Type Activity Date Activity User E-Sign Co-Sign Detail Recorded Client Recorded Date Recorded By Document 12/07/19 14:32 RB [id number] 12/07/19 14:33 RB 12/07/19 14:32 Wound Care Nurse 3 [Wound Dressing] 5-Right sahu -Ulcer Cleansing Rinsed/ Irrigated with Saline -Other Dressing hydrogel -Primary Dressing Covered/Secured Dry Gauze,Dry with Gauze & Roll Gauze,Secured with Tape [Compression Applied] Right -Tubular Bandage Single Layer -Size of Tubigrip Used Size D -Size D ($) 1 Left -Tubular Bandage Single Layer -Size of Tubigrip Used Size D -Size D ($) 1 [Post Procedure Tolerated] -Treatment Response Procedure Tolerated Well Pain Scale: 0-10 Numeric [Pain] -Is Patient Pain Free? Yes Teaching: Wound Center [Wound Center Education] (Items with an * have Printed Materials Available- Please identify what is given to patient under the Teaching materials given to patient and caregiver Section. Compression Wraps & Stockings -Person Taught Patient -Teaching Method Discussion, Demonstration -Response to teaching Verbalize understanding WC - Visit Discharge [Visit Discharge Information] -Discharge Condition Stable -Ambulatory Status Ambulatory -Transportation Private Auto -Medication Reconcilliation completed No & provided to patient/care provider -Clinical Summary of Care Provided Yes Musculoskeletal: No Tenderness to Palpation of Joints or Extremities, Muscle Wasting Neurological: - - Lack of normal epicritic sensation light touch is consistent with neuropathy status Psych/Mental Status: Normal Affect, Appropriate Debridement Note Post-Debridement Measurements/Treatment - Nurse 2 - General Ulcer CM Notes Start: 12/07/19 13:52 Freq: Status: Active Protocol: Activity Type Activity Date Activity User E-Sign Co-Sign Detail Recorded Client Recorded Date Recorded By Document 12/07/19 14:14 [id number] 12/07/19 14:18 12/07/19 14:14 Wound Center Nurse 2 4-left sahu -Correct Patient No -Correct Side, Site, Position No -Correct Procedure No -Procedure Performed No -Post Debridement (cm) - Length 0 -Post Debridement (cm) - Width 0 -Post Debridement (cm) - Depth 0 -Total Square (Post) (cm) 0 -Area of Debridement (cm) - Length 0 -Area of Debridement (cm) - Width 0 -Total Square (Area) (cm) 0 -Wound/Ulcer Outcome Healed- Epithelialized 5-Right sahu -Time 14:15 -Correct Patient Yes -Correct Side, Site, Position Yes -Correct Procedure Yes -Procedure Performed Yes -Type of Procedure Debridement -Clinical Debridement Subcutaneous -Tissue Removed Subcutaneous -Post Debridement (cm) - Length 0.6 -Post Debridement (cm) - Width 0.5 -Post Debridement (cm) - Depth 0.1 -Total Square (Post) (cm) 0.30 -Area of Debridement (cm) - Length 0.6 -Area of Debridement (cm) - Width 0.5 -Total Square (Area) (cm) 0.30 -Tunneling No -Undermining/Tunneling No -Circular Undermining No -Wound/Ulcer Outcome Not Healed -Ulcer Cleansing Rinsed/ Irrigated with Saline -Foul Odor after Cleansing No -Bioengineered Tissue No -Bleeding Controlled with Pressure -Offloading No -Treatment Response Procedure Tolerated Well -Debridement - Subq, 1st 20sq cm Yes Pain Scale: 0-10 Numeric Is Patient Pain Free? Yes WC - Nurse 3 - General Ulcer D/C NN Start: 12/07/19 13:52 Freq: Status: Active Protocol: Activity Type Activity Date Activity User E-Sign Co-Sign Detail Recorded Client Recorded Date Recorded By Document 12/07/19 14:32 RB [id number] 12/07/19 14:33 RB 12/07/19 14:32 Wound Care Nurse 3 5-Right sahu -Ulcer Cleansing Rinsed/ Irrigated with Saline -Other Dressing hydrogel -Primary Dressing Covered/Secured with Dry Gauze,Dry Gauze & Roll Gauze,Secured with Tape Right -Tubular Bandage Single Layer -Size of Tubigrip Used Size D -Size D ($) 1 Left -Tubular Bandage Single Layer -Size of Tubigrip Used Size D -Size D ($) 1 Treatment Response Procedure Tolerated Well Pain Scale: 0-10 Numeric Is Patient Pain Free? Yes Teaching: Wound Center Compression Wraps & Stockings -Person Taught Patient -Teaching Method Discussion, Demonstration -Response to teaching Verbalize understanding WC - Visit Discharge Discharge Condition Stable Ambulatory Status Ambulatory Transportation Private Auto Medication Reconcilliation completed & No provided to patient/care provider Clinical Summary of Care Provided Yes Wound debrided: anterior leg Laterality: Right Type of Debridement: Excisional debridement Anesthesia Used: 5% Lidocaine Gel Depth: in the subcutaneous layer Percentage of wound debrided: 100 Instrument Used: #15 blade Tissue Removed: fibrous, devitalized subcutaneous, biofilm, slough Severity: Fat Layer Exposed Amount of bleeding with debridement: Mild Bleeding Controlled with: Pressure Patient tolerated procedure well Assessment/Plan Active Problems (Last Reviewed 12/06/19 @ 16:[address] Johan Perry MD) Ulcer of right lower extremity (Acute) New, anterior more distal site Assessment: Right leg ulcer -new location, jauregui grade 1, no infection. left leg ulcer healed today. Leg edema. diabetes (hemoglobin A1C 7.8, self reported from 09/2019 w/ Dr. Chaitanya Keyes). Peripheral vascular disease. Venous insufficiency. Congestive heart failure history noted. Neuropathy. Left fifth metatarsal fracture from approximately early July 2019, nonhealing Plan: I reviewed and discussed his case. Subcutaneous excisional debridement was performed to the right leg as noted in the clinical panel. It is noted his ulcer site has healed and there was no debridement performed today. To wash gently with soap and water with daily dressing changes with hydrogel. For edema management, I recommend bilateral single layer Tubigrip application; this was applied today. To intermittently elevate on an hourly basis to control edema and to avoid idle standing or sitting. To avoid excessive salt intake in his diet as well. His venous duplex Doppler was reviewed from 09-05-2019 which did not demonstrate any DVT or deep venous incompetence. His prior venous studies are reviewed demonstrating venous insufficiency with incompetency bilateral lower extremity. He is following with vein and also arterial specialist, Dr. Truong at this time and he was advised to continue. He reports he had additional testing performed yesterday advised him to call and schedule a follow-up session to get these results. I am not able to review invention at this time in the computer. To continue to apply moisturizing lotion to maintain good skin integrity; Lac-Hydrin has been working well. His noninvasive vascular studies were reviewed and this is consistent with some noncompressible vessels. The waveforms at the ankle are by and triphasic. The right BERNARDINO is 1.32 and left and 0.82. The right digital brachial index is 1.15 and left is 0.29. To optimize healing with a well-balanced diet to improve healing. His labs and x-rays from his recent hospital admission and follow up visits at the foot and ankle center were reviewed. His cellulitis remains resolved and I do not recommend additional antibiotics. He will follow-up with the foot and ankle center for left metatarsal fracture and he continues to wear the cam walker boot. I answered all his questions. To follow-up at the wound healing center in 1 week or call sooner if he has any questions or concerns. He relates he is not able to come in next week and therefore he will follow-up in 2 weeks instead. . 2019 macra entry. Reviewed today: Medications and allergies reviewed and reconciled. Reviewed 09-14-2019: Body mass index is above normal. She was advised to follow-up with primary care physician. He was counseled on diet and activity modifications to optimize health weight, and blood pressure. His blood pressure is elevated at 125/85. He is a current nontobacco user. He denies falling within the past year. His influenza immunization was up-to-date.
[2019-12-21 10:38] VITALS: BP 113/72; PULSE 80; RESP 16; TEMP 35.9; BMI 41.1
--- NOTE | 2019-12-21 12:00 | PN.PCM_ITS ---
(1) Ulcer of right lower extremity Status: Resolved Current Visit: Yes Qualifiers: Non-pressure ulcer stage: with fat layer exposed Qualified Code(s): L97.912 - Non-pressure chronic ulcer of unspecified part of right lower leg with fat layer exposed Code(s): L97.919 - Non-pressure chronic ulcer of unspecified part of right lower leg with unspecified severity Comment: New, anterior more distal site (2) Peripheral vascular disease Status: Chronic Current Visit: Yes Code(s): I73.9 - Peripheral vascular disease, unspecified (3) Dermatitis of lower extremity Status: Chronic Current Visit: Yes Code(s): L30.9 - Dermatitis, unspecified Type of Wound Date of Service: 12/21/19 Chief Complaint: Right leg ulcer new at a different location anterior lower leg. left leg ulcer follow-up. Left foot fracture delayed and non healing. Vascular disease History of Wound: This is a 74-year-old white male with multiple comorbidities was seen wound healing center today for right leg ulcer. He denies current fever, chill, nausea, vomiting. He has been applying Lac-Hydrin lotion to legs daily with significant improvement in skin integrity. He has peripheral vascular disease and lower extremity edema as well. His right leg skin is peeling and he has some excoriations and ongoing inflammatory changes. He wears his compression garments. He has a nonhealing left fifth metatarsal fracture. He is scheduled to have vascular surgery intervention including angiogram with potential intervention on January [address] Truong. He denies active drainage to the right lower extremity. Progress of Wound: Healed right leg - Physical Exam Vital Signs Temp Pulse Resp BP 96.6 F L 80 16 113/72 12/21/19 10:38 12/21/19 10:38 12/21/19 10:38 12/21/19 10:38 General: Alert, Oriented x3, Cooperative, No apparent distress HEENT: Atraumatic Extremities: No cyanosis, Capillary Refill Less than 3 Seconds, No Calf Tenderness, Diminished Peripheral Pulses, Edema Skin: Ulcer/ Wound - Full epithelialization at prior ulcer site to right leg. His skin is hairless, atrophic, hyperpigmented healing. There is overall reduction in inflammation changes however this is persistent. There are no signs of infection. Wound Measurements and Assessment WC - Nurse 1 - General Ulcer Measurement Start: 12/07/19 13:52 Freq: Status: Active Protocol: Activity Type Activity Date Activity User E-Sign Co-Sign Detail Recorded Client Recorded Date Recorded By Document 12/21/19 10:38 [facility] [id number] 12/21/19 10:43 [facility] 12/21/19 10:38 Wound Center Nurse 1 [Ulcer Assessment] 5-Right sahu -Combined with other wound No -Current Size (cm) - Length 0.1 -Current Size (cm) - Width 0.1 -Current Size (cm) - Depth 0.1 -Total Square Cm 0.01 -Photo Taken No -Epithelialization Large 67-100% -Tunneling No -Undermining/Tunneling No -Circular Undermining No -Exudate Amt None Present -Texture (Faviola-wound Skin Appearance) Assessed, Scarring -Moisture (Faviola-wound Skin Appearance Assessed,Dry/ ) Scaly -Color (Faviola-wound Skin Appearance) Assessed -Temperature (Faviola-wound Skin No Abnormality Appearance) (Pt Warm) -Tenderness on Palpation (Faviola-wound No Skin Appearance) -Ulcer Cleansing Rinsed/ Irrigated with Saline -Foul Odor after Cleansing No -Anesthetic Used 4% Lidocaine Solution [Edema Assessment] -Lower Limb Edema Present Yes -Right Calf (cm) 47.5 -Right Ankle (cm) 25.5 - Nurse 2 - General Ulcer CM Notes Start: 12/07/19 13:52 Freq: Status: Active Protocol: Activity Type Activity Date Activity User E-Sign Co-Sign Detail Recorded Client Recorded Date Recorded By Document 12/21/19 11:08 [id number] 12/21/19 11:09 12/21/19 11:08 Wound Center Nurse 2 [Procedure/Treatment] 5-Right sahu -Correct Patient No -Correct Side, Site, Position No -Correct Procedure No -Procedure Performed No -Post Debridement (cm) - Length 0 -Post Debridement (cm) - Width 0 -Post Debridement (cm) - Depth 0 -Total Square (Post) (cm) 0 -Area of Debridement (cm) - Length 0 -Area of Debridement (cm) - Width 0 -Total Square (Area) (cm) 0 -Circular Undermining No -Wound/Ulcer Outcome Healed- Epithelialized [See Physician Procedure note for Specifics] Pain Scale: 0-10 Numeric [Pain] -Is Patient Pain Free? Yes - Nurse 3 - General Ulcer D/C NN Start: 12/07/19 13:52 Freq: Status: Active Protocol: Activity Type Activity Date Activity User E-Sign Co-Sign Detail Recorded Client Recorded Date Recorded By Document 12/21/19 11:13 [facility] [id number] 12/21/19 11:14 [facility] 12/21/19 11:13 Wound Care Nurse 3 [Compression Applied] Right -Tubular Bandage Single Layer -Size of Tubigrip Used Size E -Size E ($) 1 Left -Other pt has own tubigrip in good condition Vital Signs [Comments] -Comment no debridement today, no post procedure v/s Pain Scale: 0-10 Numeric [Pain] -Is Patient Pain Free? Yes - Visit Discharge [Visit Discharge Information] -Discharge Condition Stable -Ambulatory Status Ambulatory,Cane -Transportation Private Auto [Facility Notification] -Facility Type Home Health Musculoskeletal: No Tenderness to Palpation of Joints or Extremities, Muscle Wasting, - - No bogginess or fluctuance on palpation right lower extremity Neurological: Sensory exam intact to light touch and pain Psych/Mental Status: Normal Affect, Appropriate Debridement Note Post-Debridement Measurements/Treatment CHERISE - Nurse 2 - General Ulcer CM Notes Start: 12/07/19 13:52 Freq: Status: Active Protocol: Activity Type Activity Date Activity User E-Sign Co-Sign Detail Recorded Client Recorded Date Recorded By Document 12/07/19 14:14 [id number] 12/07/19 14:18 Document 12/21/19 11:08 [id number] 12/21/19 11:09 12/07/19 12/21/19 14:14 11:08 Wound Center Nurse 2 4-left sahu -Correct Patient No -Correct Side, Site, Position No -Correct Procedure No -Procedure Performed No -Post Debridement (cm) - Length 0 -Post Debridement (cm) - Width 0 -Post Debridement (cm) - Depth 0 -Total Square (Post) (cm) 0 -Area of Debridement (cm) - Length 0 -Area of Debridement (cm) - Width 0 -Total Square (Area) (cm) 0 -Wound/Ulcer Outcome Healed- Epithelialized 5-Right sahu -Time 14:15 -Correct Patient Yes No -Correct Side, Site, Position Yes No -Correct Procedure Yes No -Procedure Performed Yes No -Type of Procedure Debridement -Clinical Debridement Subcutaneous -Tissue Removed Subcutaneous -Post Debridement (cm) - Length 0.6 0 -Post Debridement (cm) - Width 0.5 0 -Post Debridement (cm) - Depth 0.1 0 -Total Square (Post) (cm) 0.30 0 -Area of Debridement (cm) - Length 0.6 0 -Area of Debridement (cm) - Width 0.5 0 -Total Square (Area) (cm) 0.30 0 -Tunneling No -Undermining/Tunneling No -Circular Undermining No No -Wound/Ulcer Outcome Not Healed Healed- Epithelialized -Ulcer Cleansing Rinsed/ Irrigated with Saline -Foul Odor after Cleansing No -Bioengineered Tissue No -Bleeding Controlled with Pressure -Offloading No -Treatment Response Procedure Tolerated Well -Debridement - Subq, 1st 20sq cm Yes Pain Scale: 0-10 Numeric Is Patient Pain Free? Yes Yes - Nurse 3 - General Ulcer D/C NN Start: 12/07/19 13:52 Freq: Status: Active Protocol: Activity Type Activity Date Activity User E-Sign Co-Sign Detail Recorded Client Recorded Date Recorded By Document 12/07/19 14:32 [id number] 12/07/19 14:33 RB Document 12/21/19 11:13 [facility] [id number] 12/21/19 11:14 [facility] 12/07/19 12/21/19 14:32 11:13 Wound Care Nurse 3 5-Right sahu -Ulcer Cleansing Rinsed/ Irrigated with Saline -Other Dressing hydrogel -Primary Dressing Covered/Secured with Dry Gauze,Dry Gauze & Roll Gauze,Secured with Tape Right -Tubular Bandage Single Layer Single Layer -Size of Tubigrip Used Size D Size E -Size D ($) 1 -Size E ($) 1 Left -Tubular Bandage Single Layer -Size of Tubigrip Used Size D -Size D ($) 1 -Other pt has own tubigrip in good condition Treatment Response Procedure Tolerated Well Pain Scale: 0-10 Numeric Is Patient Pain Free? Yes Yes Vital Signs Comment no debridement today, no post procedure v/s Teaching: Wound Center Compression Wraps & Stockings -Person Taught Patient -Teaching Method Discussion, Demonstration -Response to teaching Verbalize understanding WC - Visit Discharge Discharge Condition Stable Stable Ambulatory Status Ambulatory Ambulatory,Cane Transportation Private Auto Private Auto Medication Reconcilliation completed & No provided to patient/care provider Clinical Summary of Care Provided Yes Facility Type Home Health No debridement was completed today - Healed today Assessment/Plan Active Problems (Last Reviewed 12/06/19 @ 16:[address] Johan Perry MD) Peripheral vascular disease (Chronic) Dermatitis of lower extremity (Chronic) Assessment: Right leg ulcer -healed. Dermatitis right leg. Leg edema. diabetes (hemoglobin A1C 7.8, self reported from 09/2019 w/ Dr. Chaitanya Keyes). Peripheral vascular disease. Venous insufficiency. Congestive heart failure history noted. Neuropathy. Left fifth metatarsal fracture from approximately early July 2019, nonhealing Plan: I reviewed and discussed his case. Debridement was not performed today because the ulcer site has healed. To discontinue dressing care. His inflamed skin is noted on his leg. I recommend a short course of triamcinolone cream to reduce local inflammation. After week I recommend he transitions back to Lac- Hydrin use. For edema management, I recommend bilateral single layer Tubigrip application; this was applied today. To intermittently elevate on an hourly basis to control edema and to avoid idle standing or sitting. To avoid excessive salt intake in his diet as well. His venous duplex Doppler was reviewed from 09-05-2019 which did not demonstrate any DVT or deep venous incompetence. His prior venous studies are reviewed demonstrating venous insufficiency with incompetency bilateral lower extremity. He is following with vein and also arterial specialist, Dr. Truong at this time and he was advised to continue. To proceed forward with surgical intervention on January [address] Truong. His noninvasive vascular studies were reviewed and this is consistent with some noncompressible vessels. The waveforms at the ankle are by and triphasic. The right BERNARDINO is 1.32 and left and 0.82. The right digital brachial index is 1.15 and left is 0.29. To optimize healing with a well- balanced diet to improve healing. His labs and x-rays from his recent hospital admission and follow up visits at the foot and ankle center were reviewed. He will follow-up with the foot and ankle center for left metatarsal fracture and he continues to wear the cam walker boot. I answered all his questions. He is discharged from the wound healing center at this time. He is already scheduled to follow-up with the foot and ankle center for other foot and ankle conditions in which he will also be followed to confirm his leg ulcer sites have remained healed. I answered all of his questions. . 2019 karrie winn. Reviewed today: Medications and allergies reviewed and reconciled. Reviewed 09-14-2019: Body mass index is above normal. She was advised to follow-up with primary care physician. He was counseled on diet and activity modifications to optimize health weight, and blood pressure. His blood pressure is elevated at 125/85. He is a current nontobacco user. He denies falling within the past year. His influenza immunization was up-to-date.
== END 2019-12-28 23:59 ==
LOC: WC 10:30
PROVIDERS: PCP Family Medicine; Referring Provider Podiatrist; Visit Provider Podiatrist
DX: E11.622 Type 2 diabetes mellitus with other skin ulcer (principal); L97.812 Non-pressure chronic ulcer of other part of right lower leg with fat layer exposed; E11.51 Type 2 diabetes mellitus with diabetic peripheral angiopathy without gangrene; E11.42 Type 2 diabetes mellitus with diabetic polyneuropathy; I87.2 Venous insufficiency (chronic) (peripheral); R60.0 Localized edema; L30.9 Dermatitis, unspecified; I11.0 Hypertensive heart disease with heart failure; I50.9 Heart failure, unspecified; S92.352G Displaced fracture of fifth metatarsal bone, left foot, subsequent encounter for fracture with delayed healing; X58.XXXD Exposure to other specified factors, subsequent encounter; Z79.01 Long term (current) use of anticoagulants; Z79.02 Long term (current) use of antithrombotics/antiplatelets; Z79.82 Long term (current) use of aspirin; Z79.4 Long term (current) use of insulin; Z79.899 Other long term (current) drug therapy
CPT/HCPCS: 11042; 99212; G0463

== ENCOUNTER 2020-01-04 06:33 | Day surgery (SDC) | payer MEDICARE, OTHER, SELFPAY ==
[2017-11-06 10:25] VITALS: BMI 37.2
[2019-12-07 13:59] VITALS: BMI 41.1
[2020-01-03 09:48] VITALS: BMI 40.3
--- NOTE | 2020-01-04 06:00 | HP_ITS ---
[facility] HPI History of Present Illness Details: LOVELY LONG, is a 74 M who presents to the office today for a cardiovascular follow-up. His He has a history of coronary artery disease with a non-ST myocardial infarction, ischemic cardiomyopathy with ICD implant with recent generator December 2018, hyperlipidemia, and diabetes. He was admitted to the hospital in November 2018 with chest discomfort, he underwent an echocardiogram with demonstrated an ejection fraction of 45% and he subsequently underwent a cardiac catheterization which demonstrated a normal left main coronary artery, left anterior descending artery with mild luminal irregularities in the first diagonal vessel with 50% ostial stenosis, circumflex artery with 60% proximal stenosis in the right coronary artery which was totally occluded. Medical therapy was recommended. He tells me that overall he has done well except for problems with his foot. He was in the hospital for this. He however has not had any chest pain and his shortness of breath is at baseline. You do remember that his last echocardiogram demonstrated an ejection fraction of 47% without wall motion abnormalities and his dobutamine stress echo in November 2018 did not demonstrate any evidence of ischemia. Intake Vital Signs 12/06/19 BMI 41.1 12/06/19 Height 5 ft 8 in 12/06/19 Weight: 270 lb 12/06/19 BMI 41.0 12/06/19 BP 130/78 H 12/06/19 Respiration 22 H 12/06/19 Pulse 68 12/06/19 Pulse Oximetry (%) 95 Intake Visit Reasons: 6 M FU Allergies ceftriaxone sodium [From Rocephin] Allergy (Verified 12/06/19 15:30) Rash milk Adverse Reaction (Verified 12/06/19 15:30) Diarrhea morphine Adverse Reaction (Verified 12/06/19 15:30) hallucinations Medications Clopidogrel Bisulfate [Plavix] 75 mg PO DAILY 12/04/14 [History Confirmed 12/06/19] Insulin Lispro [Humalog] 17 unit SQ TIDCM 08/25/17 [History Confirmed 12/06/19] carvedilol 6.25 mg tablet 6.25 mg PO BID #180 tab 10/11/18 [Rx Confirmed 12/06/19] Aspirin E.C. [Ecotrin] 81 mg PO DAILY@0800 11/17/18 [History Confirmed 12/06/19] Latanoprost 1 drp EACH EYE QHS 11/17/18 [History Confirmed 12/06/19] Warfarin Sodium 6 mg PO SUTUTHSA 11/17/18 [History Confirmed 12/06/19] Colestipol Tablet [Colestid Tablet] 1 gm PO BID 12/02/18 [History Confirmed 12/06/19] Fenofibrate Nanocrystallized [Tricor] 145 mg PO DAILY 12/02/18 [History Confirmed 12/06/19] Insulin NPH Human Isophane [Humulin N Vial] 32 units SQ BID 12/02/18 [History Confirmed 12/06/19] Ranolazine [Ranexa] 1,000 mg PO BID 12/02/18 [History Confirmed 12/06/19] Furosemide [Lasix] 40 mg PO BID #60 tab 12/06/18 [Rx Confirmed 12/06/19] spironolactone 25 mg tablet 25 mg PO DAILY #90 tab 12/16/18 [Rx Confirmed 12/06/19] trazodone 50 mg tablet 50 mg PO QHS tab 01/28/19 [History Confirmed 12/06/19] pantoprazole 40 mg tablet,delayed release 40 mg PO DAILY #90 tab 04/27/19 [Rx Confirmed 12/06/19] Ropinirole HCl [Requip] 0.5 mg PO DAILY 09/05/19 [History Confirmed 12/06/19] Warfarin Sodium [Jantoven] 3 mg PO MOWEFR 09/05/19 [History Confirmed 12/06/19] isosorbide mononitrate 60 mg tablet,extended release 24 hr 60 mg PO BID #180 tab 10/07/19 [Rx Confirmed 12/06/19] nitroglycerin 0.4 mg sublingual tablet 0.4 mg SUBLINGUAL Q5M PRN #25 tab 10/07/19 [Rx Confirmed 12/06/19] amlodipine 5 mg tablet 5 mg PO DAILY #30 tab 10/27/19 [Rx Confirmed 12/06/19] gabapentin 300 mg capsule 900 mg PO BID cap 10/27/19 [History Confirmed 12/06/19] lisinopril 20 mg tablet 10 mg PO DAILY tab 10/27/19 [History Confirmed 12/06/19] Amiodarone HCl 200 mg PO DAILY 11/30/19 [History Confirmed 12/06/19] Rosuvastatin Calcium 40 mg PO QHS 11/30/19 [History Confirmed 12/06/19] Cephalexin [Keflex] 500 mg PO TID #7 cap 12/03/19 [Rx Confirmed 12/06/19] [facility] Medical History Walking difficulty due to ankle and foot (Chronic) Ulcer of left lower extremity with fat layer exposed (Chronic) Cellulitis of right leg (Chronic) Atherosclerotic heart disease of [place] coronary artery with other forms of angina pectoris (Chronic) Old inferior wall myocardial infarction (Chronic) Ischemic cardiomyopathy (Chronic) Acute systolic (congestive) heart failure (Chronic) Paroxysmal atrial flutter (Chronic) Nonsustained ventricular tachycardia (Chronic) Essential (primary) hypertension (Chronic) Hyperlipidemia (Chronic) Corns and callosities (Chronic) Diabetes mellitus type 2 in obese (Chronic) 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) History of non-ST elevation myocardial infarction (NSTEMI) (Chronic 11/05/16) Localized edema (Chronic) Nondisp fracture of fifth left metatarsal bone with routine healing (Chronic) Obesity (Chronic) Other hereditary and idiopathic neuropathies (Chronic) Other specified peripheral vascular diseases (Chronic) Type 2 diabetes mellitus (Chronic) Ulcer of right lower extremity with fat layer exposed (Chronic) Xerosis cutis (Chronic) Cellulitis (Resolved) History of deep vein thrombosis (DVT) of lower extremity (Resolved) Ulcer of right lower extremity with fat layer exposed (Resolved) Nonrheumatic tricuspid (valve) insufficiency (Inactive) Surgical History History of coronary artery stent placement (Chronic 12/15/14) History of implantable cardiac defibrillator (ICD) (Chronic 11/19/17) H/O colonoscopy with polypectomy (Resolved 11/2017) History of detached retina repair (Resolved) History of electrophysiologic study (Resolved 11/23/02) History of left heart catheterization (Resolved 12/06/18) History of radiofrequency ablation procedure for cardiac arrhythmia (Resolved 07/01/11) Family History Father , Age 78 Prostate cancer Mother , Age 80 CVA (cerebral vascular accident) Sister Congestive heart failure Diabetes Hypertension Hyperlipidemia Atrial fibrillation CAD (coronary artery disease) Cardiac defibrillator in situ Sister Breast cancer Sister Breast cancer Brother CAD (coronary artery disease) Myocardial infarction Diabetes Brother Diabetes Brother , Age 74 COPD (chronic obstructive pulmonary disease) Sister Alive and well Social History (Updated 12/06/19 @ 16:[address] Johan Perry MD) Smoking Status: Former smoker pack-years: 20 how long ago did patient quit smokin years ago alcohol intake: never caffeine: Yes Type: coffee Number of servings: 1 ROS Const Const: Positive for fatigue and other (Little ambulation d/t left foot fracture); negative for weakness, headache(s), frequent falls, difficulty sleeping or excessive sweating Eyes Eyes: Negative for loss of peripheral vision, transient loss of vision, blurry vision, double vision or tunnel vision ENT ENT: Negative for headache(s), dizziness, Nosebleed/epistaxis or balance problems Cardio Chest Pain: No Palpitations: No Edema: None Muscle aches with walking: None Additional Details: RLE w/ wm wrap in place and no pitting edema noted. LLE with ankle boot intact Resp Respiratory: Positive for SOB with activity and wheezing (Scattered wheezing, diminished T/O); negative for SOB at rest, SOB orthopnea\SOB lying down, Cough or paroxysmal nocturnal dyspnea Additional Details: CPAP at night GI GI: Negative nausea, vomiting, heartburn or black,tarry stools : Negative for hematuria Musc Musc: Negative for muscle aches/ myalgia, muscle weakness, joint pain or balance problems Skin Skin: Negative non-healing lesions, rash or unusual bruising Neuro Neuro: Negative for dizziness, lightheadedness, near syncope, syncope, orthostatic symptoms, frequent falls, headache(s), weakness, blurry vision, double vision or lack of coordination Vincenzo Hematologic/Lymphatic: Negative for easy bleeding or easy bruising Endo Endo: Positive for fatigue and other (Patient was waiting in lobby, became diaphoretic and weak, Blood glucose 40); negative for excessive sweating or increased thirst/drinking Psych Psych: Negative for anxiety or depression Allergy Allergy/Immunology: Negative for hives, Negative for rash Cardiology Exam Const Appearance: cooperative, healthy appearing, no acute distress, well developed and well groomed Nutritional Appearance: average body habitus and well nourished Orientation: alert, awake and oriented x3 Head Head: normal to inspection, normocephalic and atraumatic Ears: hearing grossly normal bilaterally and external ears normal Nose: external nose normal, nares normal, nasal mucous membranes and turbinates normal, septum normal, no nasal discharge Face and Sinus: face symmetric Mouth: oral mucosae normal, tongue normal, oropharynx normal and moist mucous membranes Teeth and gingiva: dentition normal Throat: posterior oropharynx normal, tonsils normal and uvula midline Eyes General: appearance normal, both eyes and all related structures Eyelids: eyelids normal Conjunctivae: conjunctivae normal Pupils: PERRL, normal by confrontation and accommodation normal EOM: EOM intact bilaterally Neck Neck: normal visual inspection, trachea midline and no JVD JVD: +5 Carotids: normal carotid upstroke and bounding pulses Chest Chest inspection: normal inspection of the chest, symmetric chest movement and normal respiratory effort Auscultation: Bilateral: Clear to Auscultation Cardio Palpation: normal PMI Rate: regular rate Rhythm: regular rhythm Heart sounds: S1 normal, S2 normal and normal, physiologic split S2; negative rub, gallop or murmur GI GI: normal to inspection, soft, no hepatosplenomegaly and bowel sounds present Neuro General: alert, awake, oriented x3, gait normal, moves all extremities and no focal sensory deficit Skin Skin: no rashes or lesions noted Extremities Pulses: Normal: Right Femoral Pulse, Left Femoral Pulse, Right Dorsalis Pedis Pulse, Left Dorsalis Pedis Pulse, Right Posterior Tibial Pulse, Left Posterior Tibial Pulse, Right Radial Pulse, Left Radial Pulse Lower Extremity Edema: None: Bilateral Musculoskel Musculoskeletal: No joint tenderness Psych Psychological: normal affect Assessment & Plan 1. Ischemic cardiomyopathy I25.5 Plan He does have a history of ischemic cardiomyopathy. He appears to be doing quite well at this particular time. I would not recommend that we make any changes to his medical therapy. As noted above his dobutamine stress echo was reassuring. 2. History of implantable cardiac defibrillator (ICD) Z95.810 Plan He is status post implantable defibrillator. He does have a single chamber ICD. His last monitoring in August of this year did not demonstrate any VT episodes. His battery longevity is over 10 years. He will continue to follow in our pacemaker clinic. 3. Acute systolic (congestive) heart failure I50.21 Plan He does have mild congestive heart failure and will continue on the current medical therapy for the above. 4. Essential (primary) hypertension I10 Plan He does have a history of hypertension his blood pressure appears to be well controlled on the current medical therapy. No changes were made with respect to the above. 5. Atherosclerotic heart disease of [place] coronary artery with other forms of angina pectoris I25.118 HSR-Trziz-Sti Cx; PCI-Cutting Balloon Angioplasty of ISR-ostium of prox lat CX 11/22/02; PCI-stent to proximal OM 01/2008; PCI- [id number] OM 12/15/13;LHC w/FFR of LAD, D1, LCx 05/30/2016 Plan He does have a history of coronary artery disease. His last catheterization in November 2018 demonstrated angiographically normal left main coronary artery, left anterior descending artery with moderate stenosis noted in the first diagonal branch of 50%, circumflex artery with 60% stenosis and a totally occluded right coronary artery. Medical therapy will continue to be emphasized. Plan Detail Follow Up 6 Months (mmm) Coding Level of Care Code Off vis,est,level 4 Diagnoses Ischemic cardiomyopathy I25.5 History of implantable cardiac defibrillator (ICD) Z95.810 Acute systolic (congestive) heart failure I50.21 Essential (primary) hypertension I10 Atherosclerotic heart disease of [place] coronary artery with other forms of angina pectoris I25.118 Coding Level of Care Code Off vis,est,level 4 Diagnoses Ischemic cardiomyopathy I25.5 History of implantable cardiac defibrillator (ICD) Z95.810 Acute systolic (congestive) heart failure I50.21 Essential (primary) hypertension I10 Atherosclerotic heart disease of [place] coronary artery with other forms of angina pectoris I25.118 Supplemental Info Supplemental Information Diagnostics Pacemaker Check 09/14/19 Venous Doppler Study 12/01/19
[2020-01-04 06:47] LABS: Hemoglobin 12.1 g/dL (13.0-16.5); Mean Corp Hgb Conc 32.7 g/dL (32-36); Mean Corpuscular Hgb 29.4 pg (27.0-32.0); Mean Platelet Vol. 9.8 fl (6.2-12.0); Platelet Count 138 K/mm3 (150-450); RBC Distribution Width CV 13.6 % (11.6-14.6); RBC Distribution Width SD 44.5 fl (35.1-43.9); Red Blood Count 4.11 M/mm3 (4.6-6.2)
[2020-01-04 06:54] LABS: International Normalized Ratio 1.2; Prothrombin Time (Protime)PT. 14.4 SECONDS (11.7-14.9)
[2020-01-04 06:55] LABS: Partial Thromboplast Time 35.8 Seconds (24.1-36.2)
[2020-01-04 06:59] LABS: Albumin, Serum 3.6 g/dL (3.2-5.0); BUN 29 mg/dL (7-18); BUN/Creat Ratio 21.2 RATIO (10-20); Calcium,Total 8.4 mg/dL (8.5-10.1); Chloride 104 mmol/L (98-107); Creatinine, Serum 1.37 mg/dL (0.70-1.30); EST Glomerular Filtration Rate 54 mL/min (>60); Est Glom Filt Rate - Afr Amer 65 mL/min (>60); Estimated Creatinine Clearance 45.77 ml/min; Glucose 209 mg/dL (74-106); Phosphorus 3.2 mg/dL (2.5-4.9); Potassium 3.8 mmol/L (3.5-5.1); Sodium Level 138 mmol/L (136-145)
--- NOTE | 2020-01-04 08:32 | PCM.OPRPT ---
Problem List (1) Peripheral vascular disease Status: Chronic Report of Operation Date of Procedure: 01/04/20 Pre-Operative Diagnosis: PAD Post-Operative Diagnosis: Same Surgery/Procedure Performed:: 1. Ultrasound-guided access retrograde right common femoral artery. 2. Left lower extremity angiogram with catheter placed past the third order into the popliteal artery. 3. Balloon angioplasty of the left common. Daniel the 7 mm balloon. 4. Balloon angioplasty of the left femoral to mid popliteal with a 5 x 150 drug-coated balloon. 5. Closure with Star close Type of Anesthesia:: Sedation,Conscious Description of Procedure: Patient brought to the [employer]. Underwent appropriate timeout consent. Underwent sedation. Prepped and draped in a sterile fashion. We did ultrasound-guided access retrograde right common femoral artery put a Glidewire up and then a 5 [place] sheath. We gave 5000 units of heparin. We got up and over the bifurcation and then imaged from there. A little bit trouble getting the sheath down on the area of the right proximal common iliac to the more distal left common iliac. The sheath at this point and then we ballooned that with a 7 x 100 balloon for over 2 minutes. Completion showed a little bit better flow we will advance the sheath down. We then imaged from the distal external echo artery and it showed the iliac to the common femoral, profunda, and femoral artery is widely patent. Put a catheter down imaged distally showing the area the adductor to the mid popliteal with some areas of moderate to severe segmental stenosis. Below the knee the rest of the popliteal and tibials appear to be patent to the distal calf. We then replaced the wire and we ballooned from the mid popliteal to the area the adductor with a 5 x 150 drug-coated balloon for over 2-1/2 to 3 minutes. We then pulled this back and ballooned a little bit further into the femoral artery. Completion was much improved there is much better flow noted through this area we then pulled back the sheath did not another aortogram that showed adequate flow through the distal aorta and iliacs. Some plaque noted into the right common iliac artery. We removed out the sheath put a shorter sheath deployed a Star close with good hemostasis. Patient brought to recovery then in stable condition. Sedation: This 74-year-old gentleman underwent moderate sedation given by Dr. Brandon Truong. He was monitored EKG blood pressure and pulse ox for over the 30 minutes of the procedure. See the EMR for the complete record.
== END 2020-01-04 12:40 | disposition home or self-care (01) ==
PROVIDERS: PCP Family Medicine; Referring Provider Surgery Vascular Surgery; Visit Provider Surgery Vascular Surgery
DX: E11.51 Type 2 diabetes mellitus with diabetic peripheral angiopathy without gangrene (principal); I25.5 Ischemic cardiomyopathy; I11.0 Hypertensive heart disease with heart failure; I50.21 Acute systolic (congestive) heart failure; I25.2 Old myocardial infarction; I47.2 Ventricular tachycardia; E78.5 Hyperlipidemia, unspecified; E11.69 Type 2 diabetes mellitus with other specified complication; E66.9 Obesity, unspecified; Z68.41 Body mass index [BMI] 40.0-44.9, adult; I48.92 Unspecified atrial flutter; I25.118 Atherosclerotic heart disease of native coronary artery with other forms of angina pectoris; E11.40 Type 2 diabetes mellitus with diabetic neuropathy, unspecified; Z95.810 Presence of automatic (implantable) cardiac defibrillator; Z79.4 Long term (current) use of insulin; Z79.02 Long term (current) use of antithrombotics/antiplatelets; Z79.82 Long term (current) use of aspirin; Z79.01 Long term (current) use of anticoagulants; Z79.899 Other long term (current) drug therapy
CPT/HCPCS: 36200; 36245; 36415; 37224; 75625; 75710; 76937; 80069; 85027; 85610; 85730; 99152; 99153; C2623; J7040; Q9967; C1725; C1760; C1769; C1887; C1894

== ENCOUNTER → 2020-06-06 10:19 | Outpatient (CLI) | payer MEDICARE, OTHER, SELFPAY ==
[2017-11-06 10:25] VITALS: BMI 37.2
[2020-01-03 09:48] VITALS: BMI 40.3
[2020-06-06 11:34] LABS: AST(SGOT) 24 U/L (15-37); Alanine Aminotransfer ALT/SGPT 39 U/L (16-61); Albumin, Serum 3.5 g/dL (3.2-5.0); Alkaline Phosphatase 70 U/L (45-117); Bilirubin, Direct 0.19 mg/dL (0.00-0.30); Globulin 3.6 g/dL (2.2-4.2); Protein, Total 7.1 g/dL (6.4-8.2)
== END ==
PROVIDERS: PCP Family Medicine; Referring Provider Physician Assistant Medical; Visit Provider Physician Assistant Medical
DX: I48.92 Unspecified atrial flutter (principal); E78.5 Hyperlipidemia, unspecified; Z79.899 Other long term (current) drug therapy
CPT/HCPCS: 36415; 80076; 84443

== ENCOUNTER → 2020-06-20 07:58 | Outpatient (CLI) | payer MEDICARE, OTHER, SELFPAY ==
[2017-11-06 10:25] VITALS: BMI 37.2
[2020-01-03 09:48] VITALS: BMI 40.3
--- NOTE | 2020-06-21 09:59 | PFT ---
INTRODUCTION: The patient is a 74-year-old male that presents for pulmonary function studies secondary to a diagnosis of high risk medication use. Respiratory therapy reports good patient effort. Bronchodilators were used during testing. INTERPRETATION: Forced expiration spirometry demonstrates no evidence of a large airways obstructive ventilatory defect. There was no significant response to aerosolized bronchodilators. Spirograms are of good quality and plateau normally. Body plethysmography was performed and reveals lung volumes to be within normal limits. Diffusing capacity by single breath CO is at the lower limits of normal. IMPRESSION: Grossly normal pulmonary function studies with diffusing capacity at the lower limits of normal.
== END ==
PROVIDERS: PCP Family Medicine; Referring Provider Physician Assistant Medical; Visit Provider Physician Assistant Medical
DX: I48.92 Unspecified atrial flutter (principal); Z79.899 Other long term (current) drug therapy
CPT/HCPCS: 94060; 94726; 94729

== ENCOUNTER → 2021-02-26 11:18 | Outpatient (CLI) | payer MEDICARE, OTHER, SELFPAY ==
[2017-11-06 10:25] VITALS: BMI 37.2
[2021-02-26 12:46] LABS: Anion Gap 7 (5-15); BUN 30 mg/dL (7-18); BUN/Creat Ratio 17.9 RATIO (10-20); Chloride 101 mmol/L (98-107); Creatinine, Serum 1.68 mg/dL (0.70-1.30); EST Glomerular Filtration Rate 43 mL/min (>60); Est Glom Filt Rate - Afr Amer 51 mL/min (>60); Glucose 165 mg/dL (74-106); Potassium 4.2 mmol/L (3.5-5.1); Sodium Level 138 mmol/L (136-145)
[2021-02-26 12:50] LABS: BNP,B-Type NATRIURETIC PEPTIDE 24.7 pg/mL (0-100)
== END ==
PROVIDERS: PCP Nurse Practitioner Family; Visit Provider Internal Medicine Cardiovascular Disease
DX: I25.118 Atherosclerotic heart disease of native coronary artery with other forms of angina pectoris (principal); I25.2 Old myocardial infarction; R06.02 Shortness of breath; Z95.5 Presence of coronary angioplasty implant and graft
CPT/HCPCS: 36415; 80048; 83880

== ENCOUNTER → 2021-03-04 15:26 | Outpatient (CLI) | payer MEDICARE, OTHER, SELFPAY ==
[2017-11-06 10:25] VITALS: BMI 37.2
== END ==
PROVIDERS: PCP Nurse Practitioner Family; Visit Provider Urology
DX: N40.0 Benign prostatic hyperplasia without lower urinary tract symptoms (principal)
CPT/HCPCS: 36415; 84153

== ENCOUNTER → 2021-03-19 06:46 | Outpatient (CLI) | payer MEDICARE, OTHER, SELFPAY ==
[2017-11-06 10:25] VITALS: BMI 37.2
--- NOTE | 2021-03-19 06:48 | CT_ITS ---
STUDY: CT CHEST WITHOUT CONTRAST- LOW DOSE SCREENING PROTOCOL REASON FOR EXAM: Male, 75 years old. Former smoker. Quit smoking less than 10 years ago. 50 pack per year history. No current symptoms of lung cancer or pulmonary infection. Shared decision-making with referring PCP documented in patient''s record. RADIATION DOSAGE (If Supplied By Facility): CTDIvol = ( 4.02 ) mGy, DLP = ( 147.98 ) mGycm TECHNIQUE: Low dose screening CT examination performed from the base of the neck to the upper abdomen. Sagittal and coronal reformatted images performed. Sagittal and coronal MIP images provided. The measurements provided are average, rounded measurements per ACR guidelines. COMPARISON: 09/05/2019 FINDINGS: Left subclavian pacemaker. The lungs are normal. There is no demonstrated pleural abnormality. Normal heart and pericardium. There are calcifications of the coronary arteries. Normal mediastinum. Normal hilar regions. Normal unenhanced pulmonary arteries. There is atherosclerotic calcification of the aortic arch with tortuosity and elongation of the aortic arch and descending thoracic aorta. Normal osseous structures. There is no demonstrated abnormality of the visualized upper abdomen. CT/Low Dose CT Lung Screening IMPRESSION: 1. No significant indeterminate incidental findings requiring additional imaging. 2. Incidental findings include calcified coronary plaque. ASSESSMENT CATEGORY: LungRADS 1 - Negative. Continue annual screening with LDCT in 12 months, per established ACR guidelines. Electronically Signed: Cezar Garcia MD at 12:50 EST Tel , Service support ,
== END ==
PROVIDERS: PCP Nurse Practitioner Family; Referring Provider Internal Medicine Critical Care Medicine; Visit Provider Internal Medicine Critical Care Medicine
DX: R06.02 Shortness of breath (principal); F17.210 Nicotine dependence, cigarettes, uncomplicated
CPT/HCPCS: 71271; 94060; 94726; 94729

== ENCOUNTER → 2021-03-26 12:15 | Outpatient (CLI) | payer MEDICARE, OTHER, SELFPAY ==
[2017-11-06 10:25] VITALS: BMI 37.2
[2021-03-26 12:57] VITALS: PULSE 106; PULSE 109; PULSE 117; PULSE 87; PULSE 88; PULSE 90; PULSE 98; PULSE 99; O2SAT 97; O2SAT 98; O2SAT 99
--- NOTE | 2021-03-26 13:06 | CPS ---
Patient stopped walking at 3 minutes and 27 seconds and did not resume testing due to being extremely short of breath. Patient's labored breathing was visible.
--- NOTE | 2021-03-28 10:04 | PCM.PSN.6M ---
PSN 6 Minute Walk Test 6 Minute Walk Test 6 Minute Walk Test: 6 Minute Walk Test PSN:6-Minute Walk Test Start: 03/26/21 12:57 Freq: Status: Active Protocol: RESP.6MINW Document 03/26/21 12:57 PATRICIA (Rec: 03/26/21 13:09 PATRICIA [id number]) 6 Minute Walk Test Date Performed 03/26/21 Time Performed 12:30 Height 5 ft 8 in Weight: 127.006 kg Weight in Pounds 280.[address]: Del Ayala Assistive device used: Cane Pre-test Oxygen Delivery Method Room Air Pulse Ox (%) 97 Pulse Rate (60-100 beats/min) 87 Dyspnea Tiffany Scale (0-10) 0 Exertion Tiffany Scale (6-20) 6 1st minute Oxygen Delivery Method Room Air Pulse Ox (%) 98 Pulse Rate (60-100 beats/min) 99 2nd minute Oxygen Delivery Method Room Air Pulse Ox (%) 98 Pulse Rate (60-100 beats/min) 109 H Number of Rests Taken 1 3rd minute Oxygen Delivery Method Room Air Pulse Ox (%) 98 Pulse Rate (60-100 beats/min) 117 H Dyspnea Tiffany Scale (0-10) 7 Exertion Tiffany Scale (6-20) 12 4th minute Oxygen Delivery Method Room Air Pulse Ox (%) 98 Pulse Rate (60-100 beats/min) 106 H 5th minute Oxygen Delivery Method Room Air Pulse Ox (%) 99 Pulse Rate (60-100 beats/min) 98 6th minute Oxygen Delivery Method Room Air Pulse Ox (%) 99 Pulse Rate (60-100 beats/min) 90 Post-test Oxygen Delivery Method Room Air Pulse Ox (%) 98 Pulse Rate (60-100 beats/min) 88 Full Laps Walked 4 Partial Lap, Number of Tiles Walked 27 Total Distance Walked (ft) 263 03/26/21 13:06 Cardiopulmonary Services by Benita Phillip Patient stopped walking at 3 minutes and 27 seconds and did not resume testing due to being extremely short of breath. Patient's labored breathing was visible. Initialized on 03/26/21 13:06 - END OF NOTE Interpretation Interpretation: The patient ambulated 263 feet beginning on room air with the use of a cane. Pretesting oxygen saturation was noted to be 97% on room air. With ambulation, the too oxygen saturation was 98%. Although there was evidence of impaired walk distance, there was no significant exertional oxygen desaturation. It should be noted that the patient stopped walking at 3 minutes and 27 seconds and did not resume ambulating for the remainder of the test due to feeling short of breath. Recommendations Recommendations: There is no indication for the use of supplemental oxygen at this time.
== END ==
PROVIDERS: PCP Nurse Practitioner Family; Referring Provider Internal Medicine Critical Care Medicine; Visit Provider Internal Medicine Critical Care Medicine
DX: R06.02 Shortness of breath (principal)
CPT/HCPCS: 94618

== ENCOUNTER 2021-04-05 14:23 | Outpatient (CLI) | payer MEDICARE, OTHER, SELFPAY ==
[2017-11-06 10:25] VITALS: BMI 37.2
== END 2021-04-05 23:59 | disposition short-term general hospital (02) ==
LOC: LABSPEC 14:24
PROVIDERS: PCP Nurse Practitioner Family; Referring Provider Physician Assistant Surgical; Visit Provider Physician Assistant Surgical
DX: Z11.52 Encounter for screening for COVID-19 (principal)
CPT/HCPCS: 87635; U0003; U0005

== ENCOUNTER 2021-04-21 12:16 | Observation (INO) | payer MEDICARE, OTHER, SELFPAY ==
[2017-11-06 10:25] VITALS: BMI 37.2
[2021-04-21] VITALS (11 sets, daily range): BP systolic 125–139; BP diastolic 73–88; PULSE 66–78; RESP 16–20; TEMP 36.2–36.9; O2SAT 94–98; BMI 44.2; BMI 42.5
--- NOTE | 2021-04-21 12:38 | RAD_ITS ---
STUDY: X-RAY CHEST REASON FOR EXAM: Male, 75 years old. Sob TECHNIQUE: Single AP portable view of the chest. COMPARISON: Comparison is made with prior study ,020. FINDINGS: EKG electrodes are seen. Stable elevation of the right hemidiaphragm. Minimal degree of increased markings at the right lung base suggestive of right basilar atelectasis. There is no demonstrated pleural abnormality. Normal size heart. A left-sided unipolar pacemaker is seen. Normal mediastinum and eleuterio. Normal visualized pulmonary arteries. Normal visualized aortic arch and descending thoracic aorta. Normal visualized thoracic spine. Normal visualized ribs, clavicles, and shoulders. There is no demonstrated abnormality of the visualized soft tissue structures of the upper abdomen. RAD/Chest 1 View (Portable) IMPRESSION: Mild degree of increased markings at the right lung base suggestive of atelectasis. Electronically Signed: Cosmo Malone MD at 8:50 EST , Service support ,
--- NOTE | 2021-04-21 12:40 | EKG12_ITS ---
Test Reason : SOB/CP Blood Pressure : / mmHG Vent. Rate : 070 BPM Atrial Rate : 070 BPM P-R Int : 220 ms QRS Dur : 098 ms QT Int : 516 ms P-R-T Axes : 046 -44 219 degrees QTc Int : 557 ms Sinus rhythm with 1st degree A-V block Left axis deviation Low voltage QRS Inferior infarct Abnormal ECG Confirmed by CA SIMMONS, ROBERT ([id number]), publications editor SABINE ALVAREZ ([id number]) on 04/23/2021 9:41:12 AM Referred By: CHARLENE Confirmed By:ROBERT PENALOZA MD
[2021-04-21] MEDS: fentaNYL 100 MCG/2 ML Ampul 25 MCG IV (12:53)
[2021-04-21] MEDS: Ondansetron 4 MG/2 ML Vial IV (12:53)
[2021-04-21 12:55] LABS: Absolute Lymphocyte Count 0.91 X10^3/uL (0.83-4.51); Absolute Neutrophil Count 3.8 X10^3/uL (2.0-7.7); Basophil# 0.03 X10^3/uL; Basophil% 0.5 % (0-1); Eosinophil# 0.24 X10^3/uL; Eosinophils% 4.4 % (0-5); Hematocrit 34.5 % (40-54); Hemoglobin 10.4 g/dL (13.0-16.5); Lymphocyte # 0.91 X10^3/ul (0.83-4.51); Lymphocyte % 16.6 % (19-41); Mean Corp Hgb Conc 30.1 g/dL (32-36); Mean Corpuscular Hgb 24.9 pg (27.0-32.0); Mean Corpuscular Volume 82.5 fL (80-94); Mean Platelet Vol. 9.2 fl (6.2-12.0); Monocyte# 0.48 X10^3/uL; Monocyte% 8.8 % (0-10); NRBC Flagged by Analyzer 0 % (0-5); Neutrophil # 3.77 X10^3/uL (2.7-7.7); Neutrophil % 68.8 % (47-70); Platelet Count 222 K/mm3 (150-450); RBC Distribution Width CV 15.6 % (11.6-14.6); RBC Distribution Width SD 46.6 fl (35.1-43.9); Red Blood Count 4.18 M/mm3 (4.6-6.2); White Blood Count 5.5 K/mm3 (4.4-11.0)
[2021-04-21] MEDS: Ipratropium/Albuterol Sulfate 3 ML AMPUL.NEB INHALATION (12:55)
[2021-04-21 13:02] LABS: International Normalized Ratio 3.2
--- NOTE | 2021-04-21 13:05 | EKG12_ITS ---
Test Reason : REPEAT-CP Blood Pressure : / mmHG Vent. Rate : 067 BPM Atrial Rate : 067 BPM P-R Int : 218 ms QRS Dur : 154 ms QT Int : 418 ms P-R-T Axes : 052 072 150 degrees QTc Int : 441 ms Sinus rhythm with 1st degree A-V block Right bundle branch block Inferior infarct , age undetermined Anterior infarct , age undetermined Abnormal ECG Confirmed by CA SIMMONS, ROBERT ([id number]), web editor SABINE ALVAREZ ([id number]) on 04/23/2021 9:40:48 AM Referred By: SEYMOUR Confirmed By:ROBERT PENALOZA MD
[2021-04-21 13:11] LABS: Anion Gap 5 (5-15); BUN 21 mg/dL (7-18); BUN/Creat Ratio 17.4 RATIO (10-20); Calcium,Total 7.6 mg/dL (8.5-10.1); Chloride 104 mmol/L (98-107); Creatinine, Serum 1.21 mg/dL (0.70-1.30); EST Glomerular Filtration Rate 62 mL/min (>60); Est Glom Filt Rate - Afr Amer 75 mL/min (>60); Estimated Creatinine Clearance 51.03 ml/min; Glucose 162 mg/dL (74-106); Potassium 3.7 mmol/L (3.5-5.1); Sodium Level 139 mmol/L (136-145); Troponin-I HS 40 pg/mL (3.0-78.0)
[2021-04-21 13:19] LABS: Partial Thromboplast Time 42.4 Seconds (24.1-36.2)
--- NOTE | 2021-04-21 13:32 | CON.PCM.CA_ITS ---
Assessment & Plan Assessment/Plan (1) SOB (shortness of breath): (2) Atherosclerotic heart disease of [place] coronary artery with other forms of angina pectoris: (3) Old inferior wall myocardial infarction: (4) History of coronary artery stent placement: (5) History of implantable cardiac defibrillator (ICD): (6) Ischemic cardiomyopathy: (7) HFrEF (heart failure with reduced ejection fraction): (8) Paroxysmal atrial flutter: (9) Hyperlipidemia: QUALIFIERS: Hyperlipidemia type: unspecified Qualified Code(s): E78.5 - Hyperlipidemia, unspecified (10) Peripheral vascular occlusive disease: PLAN: This 75-year-old patient seen and evaluated in the ER Patient had extensive cardiac history with a history of myocardial infarction in October 2002 With a PCI and stent of the proximal OM1. Last cardiac catheterization was in November 2018 which showed left main normal, LAD had mild luminal irregularity, ostial D1 at 50% [employer]/chronic total occlusion Left circumflex had nonobstructive sclerosis around 60%, has a drug-eluting stent to the OM1 branch Patient had ischemic cardiomyopathy with ICD generator has been change in 2017 Other medical problem include history of paroxysmal atrial flutter has been on Coumadin in addition to dual antiplatelet therapy with aspirin and Plavix diabetes hypertension hyperlipidemia, ex-smoker quitting 20 years ago On the last echocardiogram showed improvement in his ejection fraction to 53% This admission patient had ongoing symptoms of chest pain for 2 weeks with shortness of breath Cardiac care plan recommendations; 1. The EKG showed age-indeterminate inferior CO consistent with history of inferior CO with clear evidence of Q-wave in the inferior leads. 2. The initial set of cardiac biomarkers have been negative 3. We will start on low-dose heparin and also will check a series of troponins and will continue dual antiplatelet therapy Will hold Coumadin for now he been in sinus rhythm. 4. We will repeat echocardiogram to assess his LV function and his primary car diologist Dr. Perry will discuss further plan possible evaluation with cardiac catheterization during this admission due to the recurrent episode of chest pain HPI Consult Data Date of Consult: 04/21/21 HPI Narrative Reason for Consultation: CAD/ischemic cardiomyopathy/PCI stent of OM, abnormal EKG HPI Narrative: Tim LONG, is a 75 M who presents [facility], [facility] Medical History Atherosclerotic heart disease of [place] coronary artery with other forms of angina pectoris Cellulitis Cellulitis of right leg Corns and callosities Dermatitis of lower extremity Diabetes mellitus type 2 in obese Essential (primary) hypertension 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 HFrEF (heart failure with reduced ejection fraction) History of deep vein thrombosis (DVT) of lower extremity History of non-ST elevation myocardial infarction (NSTEMI) (11/05/16) Hyperlipidemia Ischemic cardiomyopathy Localized edema Nondisp fracture of fifth left metatarsal bone with routine healing Nonrheumatic tricuspid (valve) insufficiency Nonsustained ventricular tachycardia Obesity 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 Other specified peripheral vascular diseases Paroxysmal atrial flutter Peripheral vascular occlusive disease Type 2 diabetes mellitus Ulcer of left lower extremity with fat layer exposed Ulcer of right lower extremity Ulcer of right lower extremity with fat layer exposed Ulcer of right lower extremity with fat layer exposed Walking difficulty due to ankle and foot Xerosis cutis Home Medications clopidogrel 75 mg PO DAILY 12/04/14 [History Last Taken 11/30/19 0900] insulin lispro 17 unit SQ TIDCM 08/25/17 [History Last Taken 01/04/20] aspirin 81 mg PO DAILY@0800 11/17/18 [History Last Taken 01/04/20] latanoprost 1 drp EACH EYE QHS 11/17/18 [History Last Taken 11/30/19 1200] warfarin 6 mg PO SUTUTHSA 11/17/18 [History Last Taken 12/29/19] colestipol 1 g PO BID 12/02/18 [History Last Taken 01/04/20] fenofibrate nanocrystallized 145 mg PO DAILY 12/02/18 [History Last Taken 01/04/20] insulin NPH isoph U-100 human 32 units SQ BID 12/02/18 [History Last Taken 11/30/19 0700] ropinirole 0.5 mg PO DAILY 09/05/19 [History Last Taken 01/04/20] gabapentin 300 mg capsule 900 mg PO BID cap 10/27/19 [History Last Taken 01/04/20] pantoprazole 40 mg tablet,delayed release 40 mg PO DAILY #90 tab 05/08/20 [Rx Last Taken Unknown] lisinopril 20 mg tablet 20 mg PO DAILY tab 06/06/20 [History Last Taken Unkno wn] rosuvastatin 40 mg tablet 40 mg PO QHS #90 tablet 07/05/20 [Rx Last Taken Unknown] nitroglycerin 0.4 mg sublingual tablet 0.4 mg SL Q5M PRN #25 tab 10/08/20 [Rx Last Taken Unknown] isosorbide mononitrate 60 mg tablet,extended release 24 hr 60 mg PO BID #180 tab 11/07/20 [Rx Last Taken Unknown] spironolactone 25 mg tablet 25 mg PO DAILY #90 tab 01/21/21 [Rx Last Taken Unknown] furosemide 40 mg tablet 40 mg PO BID #1 tab 02/27/21 [Rx Last Taken Unknown] Basaglar KwikPen U-100 Insulin 04/21/21 [History Last Taken Unknown] amiodarone 200 mg PO DAILY 04/21/21 [History Last Taken Unknown] carvedilol 3.125 mg PO BID 04/21/21 [History Last Taken Unknown] dulaglutide [Trulicity] 3 mg SUBCUT QWEEK 04/21/21 [History Last Taken Unknown] fluoxetine 20 mg PO DAILY 04/21/21 [History Last Taken Unknown] nortriptyline 25 mg PO QHS 04/21/21 [History Last Taken Unknown] Allergy/AdvReac Type Severity Reaction Status Date / Time ceftriaxone sodium Allergy Rash Verified 01/22/21 12:20 [From Rocephin] milk AdvReac Diarrhea Verified 01/22/21 12:20 morphine AdvReac hallucinati Verified 01/22/21 12:20 ons Family History Father , Age 78 Prostate cancer Mother , Age 80 CVA (cerebral vascular accident) Sister Congestive heart failure Diabetes Hypertension Hyperlipidemia Atrial fibrillation CAD (coronary artery disease) Cardiac defibrillator in situ Sister Breast cancer Sister Breast cancer Brother CAD (coronary artery disease) Myocardial infarction Diabetes Brother Diabetes Brother , Age 74 COPD (chronic obstructive pulmonary disease) Sister Alive and well Surgical History H/O colonoscopy with polypectomy (11/2017) History of angioplasty of peripheral vessel History of coronary artery stent placement (12/15/14) History of detached retina repair History of electrophysiologic study (11/23/02) History of implantable cardiac defibrillator (ICD) (11/19/17) History of left heart catheterization (12/06/18) History of radiofrequency ablation procedure for cardiac arrhythmia (07/01/11) Social History Smoking Status: Former smoker pack-years: 20 how long ago did patient quit smokin years ago alcohol intake: never caffeine: Yes Type: coffee Number of servings: 1 Physical Exam Narrative Patient seen and evaluated in the ER Cardiac auscultation for abnormal EKG and ongoing symptoms of chest pain for 2 weeks. Patient alert orientated x3 Has ICD in the left infraclavicular area Cardiac exam S1-S2 regular Limited examination as patient has tested positive for COVID 19/to prevent spread of COVID Risk Stratification Risk Stratification Applicable: Yes Age >/= 65: Yes >/= 3 CAD Risk Factors (HTN, HLD, DM, family hx of CAD, or current smoker): Yes Aspirin Use in the Past 7 Days: Yes Severe Angina (>/= episodes in 24 hours): No EKG ST Changes >/= 0.5mm: No Positive Cardiac Marker: No MICAH Risk Stratification Score: 3 MICAH % Risk: 13% Risk Objective Data Vital Signs: Vital Signs Temp Pulse Resp BP Pulse Ox 97.6 F L 66 16 125/73 H 98 04/21/21 13:24 04/21/21 13:24 04/21/21 13:24 04/21/21 13:24 04/21/21 13:24 Oxygen Delivery Method Room Air Weight: 291 lb 0.163 oz Body Mass Index (BMI) 44.2 Lab / Micro Data Result Diagrams: 04/21/21 12:45 04/21/21 12:45 Labs: Laboratory Results - last 24 hr 04/21/21 12:45: PT 32.0 H, INR 3.2 04/21/21 12:45: WBC 5.5, RBC 4.18 L, Hgb 10.4 L, Hct 34.5 L, MCV 82.5, MCH 24.9 L, MCHC 30.1 L, RDW Std Deviation 46.6 H, RDW Coeff of Galo 15.6 H, Plt Count 222, MPV 9.2, Immature Gran % (Auto) 0.900, Neut % (Auto) 68.8, Lymph % (Auto) 16.6 L, Jay % (Auto) 8.8, Eos % (Auto) 4.4, Baso % (Auto) 0.5, Absolute Neuts (auto) 3.8, Absolute Lymphs (auto) 0.91, Nucleated RBC % 0 04/21/21 12:45: Sodium 139, Potassium 3.7, Chloride 104, Carbon Dioxide 30.0, Anion Gap 5, BUN 21 H, Creatinine 1.21, Estim Creat Clear Calc 51.03, Est GFR (MDRD) Af Amer 75, Est GFR (MDRD) Non-Af 62, BUN/Creatinine Ratio 17.4, Glucose 162 H, Calcium 7.6 L, Troponin I High Sens 40 04/21/21 12:45: APTT 42.4 H Cardiology Labs/Tests 04/21/21 12:45: PT 32.0 H, INR 3.2 04/21/21 12:45: WBC 5.5, RBC 4.18 L, Hgb 10.4 L, Hct 34.5 L, MCV 82.5, MCH 24.9 L, MCHC 30.1 L, Plt Count 222, MPV 9.2, Immature Gran % (Auto) 0.900, Neut % (Auto) 68.8, Lymph % (Auto) 16.6 L, Jay % (Auto) 8.8, Eos % (Auto) 4.4, Baso % (Auto) 0.5, Absolute Neuts (auto) 3.8, Nucleated RBC % 0 04/21/21 12:45: Sodium 139, Potassium 3.7, Chloride 104, Carbon Dioxide 30.0, Anion Gap 5, BUN 21 H, Creatinine 1.21, Est GFR (MDRD) Af Amer 75, Est GFR (MDRD) Non-Af 62, BUN/Creatinine Ratio 17.4, Glucose 162 H, Calcium 7.6 L 04/21/21 12:45: APTT 42.4 H Rhythm: Normal sinus rhythm EKG: Normal sinus rhythm with age-indeterminate inferior CO
--- NOTE | 2021-04-21 13:35 | EX.ED.DYSGE1 ---
HPI History of Present Illness Chief Complaint: Shortness of Breath Informant: patient Onset/Context/Timing Onset: Days Context: Gradual Onset Narrative Narrative: Patient presents secondary to COVID symptoms with increased shortness of breath and chest pain. He states has had symptoms for the past 2 weeks. He tested for COVID earlier the course of his illness and was negative. He had a repeat test this past April 17, and was positive. Patient reports increasing shortness of breath and chest pain for the past 2 to 3 days. He does have history of coronary artery disease with 1 stent. He is on Coumadin secondary to a history of paroxysmal a flutter. 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 HFrEF (heart failure with reduced ejection fraction) History of deep vein thrombosis (DVT) of lower extremity History of non-ST elevation myocardial infarction (NSTEMI) (11/05/16) Hyperlipidemia Ischemic cardiomyopathy Localized edema Nondisp fracture of fifth left metatarsal bone with routine healing Nonrheumatic tricuspid (valve) insufficiency Nonsustained ventricular tachycardia Obesity 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 Other specified peripheral vascular diseases Paroxysmal atrial flutter Peripheral vascular occlusive disease Type 2 diabetes mellitus Ulcer of left lower extremity with fat layer exposed Ulcer of right lower extremity Ulcer of right lower extremity with fat layer exposed Ulcer of right lower extremity with fat layer exposed Walking difficulty due to ankle and foot Xerosis cutis Home Medications clopidogrel 75 mg PO DAILY 12/04/14 [History Last Taken 11/30/19 0900] insulin lispro 17 unit SQ TIDCM 08/25/17 [History Last Taken 01/04/20] aspirin 81 mg PO DAILY@0800 11/17/18 [History Last Taken 01/04/20] latanoprost 1 drp EACH EYE QHS 11/17/18 [History Last Taken 11/30/19 1200] warfarin 6 mg PO SUTUTHSA 11/17/18 [History Last Taken 12/29/19] colestipol 1 g PO BID 12/02/18 [History Last Taken 01/04/20] fenofibrate nanocrystallized 145 mg PO DAILY 12/02/18 [History Last Taken 01/04/20] insulin NPH isoph U-100 human 32 units SQ BID 12/02/18 [History Last Taken 11/30/19 0700] ropinirole 0.5 mg PO DAILY 09/05/19 [History Last Taken 01/04/20] gabapentin 300 mg capsule 900 mg PO BID cap 10/27/19 [History Last Taken 01/04/20] pantoprazole 40 mg tablet,delayed release 40 mg PO DAILY #90 tab 05/08/20 [Rx Last Taken Unknown] lisinopril 20 mg tablet 20 mg PO DAILY tab 06/06/20 [History Last Taken Unknown] rosuvastatin 40 mg tablet 40 mg PO QHS #90 tablet 07/05/20 [Rx Last Taken Unknown] nitroglycerin 0.4 mg sublingual tablet 0.4 mg SL Q5M PRN #25 tab 10/08/20 [Rx Last Taken Unknown] isosorbide mononitrate 60 mg tablet,extended release 24 hr 60 mg PO BID #180 tab 11/07/20 [Rx Last Taken Unknown] spironolactone 25 mg tablet 25 mg PO DAILY #90 tab 01/21/21 [Rx Last Taken Unknown] furosemide 40 mg tablet 40 mg PO BID #1 tab 02/27/21 [Rx Last Taken Unknown] Basaglar KwikPen U-100 Insulin 04/21/21 [History Last Taken Unknown] amiodarone 200 mg PO DAILY 04/21/21 [History Last Taken Unknown] carvedilol 3.125 mg PO BID 04/21/21 [History Last Taken Unknown] dulaglutide [Trulicity] 3 mg SUBCUT QWEEK 04/21/21 [History Last Taken Unknown] fluoxetine 20 mg PO DAILY 04/21/21 [History Last Taken Unknown] nortriptyline 25 mg PO QHS 04/21/21 [History Last Taken Unknown] Allergy/AdvReac Type Severity Reaction Status Date / Time ceftriaxone sodium Allergy Rash Verified 01/22/21 12:20 [From Rocephin] milk AdvReac Diarrhea Verified 01/22/21 12:20 morphine AdvReac hallucinati Verified 01/22/21 12:20 ons Family History Father , Age 78 Prostate cancer Mother , Age 80 CVA (cerebral vascular accident) Sister Congestive heart failure Diabetes Hypertension Hyperlipidemia Atrial fibrillation CAD (coronary artery disease) Cardiac defibrillator in situ Sister Breast cancer Sister Breast cancer Brother CAD (coronary artery disease) Myocardial infarction Diabetes Brother Diabetes Brother , Age 74 COPD (chronic obstructive pulmonary disease) Sister Alive and well Surgical History H/O colonoscopy with polypectomy (11/2017) History of angioplasty of peripheral vessel History of coronary artery stent placement (12/15/14) History of detached retina repair History of electrophysiologic study (11/23/02) History of implantable cardiac defibrillator (ICD) (11/19/17) History of left heart catheterization (12/06/18) History of radiofrequency ablation procedure for cardiac arrhythmia (07/01/11) Social History Smoking Status: Former smoker pack-years: 20 how long ago did patient quit smokin years ago alcohol intake: never caffeine: Yes Type: coffee Number of servings: 1 ROS ROS ED Constitutional Constitutional ED: Denies chills or fever(s) Eyes Eyes: Denies change in vision ENT ENT ED: Denies sore throat Cardiovascular Cardiovascular: Reports chest pain Respiratory/Chest Respiratory/Chest: Reports cough and dyspnea Gastrointestinal Gastrointestinal: Denies abdominal pain, diarrhea, nausea or vomiting Genitourinary Genitourinary ED: Denies dysuria Musculoskeletal Musculoskeletal: Denies back pain Integumentary Denies rash Neurologic Neurologic: Reports weakness; Denies headache(s) Allergic/Immunologic Allergic/Immunologic ED: Denies urticaria EXAM Physical Exam Const Vital Signs: 04/21/21 12:17 04/21/21 12:19 04/21/21 12:55 Temperature 97.9 F 97.9 F Temperature Source Oral Oral Pulse Rate 72 72 67 Respiratory Rate 18 18 20 H Respiratory Effort Short of Breath Respiratory Depth Shallow Respiratory Pattern Normal Blood Pressure 131/88 H 131/88 H Blood Pressure Mean 102 102 Pulse Ox 95 95 Oxygen Delivery Method Room Air Room Air 04/21/21 13:24 Temperature 97.6 F L Temperature Source Temporal Pulse Rate 66 Respiratory Rate 16 Respiratory Effort Respiratory Depth Respiratory Pattern Blood Pressure 125/73 H Blood Pressure Mean 90 Pulse Ox 98 Oxygen Delivery Method Room Air Positive obese Nutritional Appearance: obese HEENT Reports moist mucous membranes Eyes PERRL and EOMs intact bilaterally Neck no lymphadenopathy and supple Chest Wall inspection of chest normal and palpation of chest normal Resp Resp Narrative: Mild expiratory wheezes worse at the right base Auscultation: diminished lung sounds Cardio regular rate and regular rhythm GI non-tender Palpation: soft Extremity Extremity Narrative: 3+ edema bilateral lower extremities, symmetric. General Extremety ED: Yes edema General Extremity: edema Neuro oriented x3 Sensorium / Orientation: alert Psych mental status grossly normal Skin no rashes or lesions noted MDM MDM MDM Narrative Medical decision making narrative: Initial EKG obtained per nursing protocol. Initial EKG is read as acute PA with possible inferior elevation. Patient does have widened QRS. I sent the images to Dr. Brownlee. He presented to the emergency room to evaluate the patient. Patient's pain is improving at this time and repeat EKG is improved. Lab work obtained and patient started on heparin drip. Lab Data Labs: Laboratory Results - last 24 hr 04/21/21 04/21/21 04/21/21 12:45 12:45 12:45 WBC 5.5 RBC 4.18 L Hgb 10.4 L Hct 34.5 L MCV 82.5 MCH 24.9 L MCHC 30.1 L RDW Std Deviation 46.6 H RDW Coeff of Galo 15.6 H Plt Count 222 MPV 9.2 Immature Gran % (Auto) 0.900 Neut % (Auto) 68.8 Lymph % (Auto) 16.6 L [place] % (Auto) 8.8 Eos % (Auto) 4.4 Baso % (Auto) 0.5 Absolute Neuts (auto) 3.8 Absolute Lymphs (auto) 0.91 Nucleated RBC % 0 PT 32.0 H INR 3.2 APTT Sodium 139 Potassium 3.7 Chloride 104 Carbon Dioxide 30.0 Anion Gap 5 BUN 21 H Creatinine 1.21 Estim Creat Clear Calc 51.03 Est GFR (MDRD) Af Amer 75 Est GFR (MDRD) Non-Af 62 BUN/Creatinine Ratio 17.4 Glucose 162 H Calcium 7.6 L Troponin I High Sens 40 04/21/21 12:45 WBC RBC Hgb Hct MCV MCH MCHC RDW Std Deviation RDW Coeff of Galo Plt Count MPV Immature Gran % (Auto) Neut % (Auto) Lymph % (Auto) [place] % (Auto) Eos % (Auto) Baso % (Auto) Absolute Neuts (auto) Absolute Lymphs (auto) Nucleated RBC % PT INR APTT 42.4 H Sodium Potassium Chloride Carbon Dioxide Anion Gap BUN Creatinine Estim Creat Clear Calc Est GFR (MDRD) Af Amer Est GFR (MDRD) Non-Af BUN/Creatinine Ratio Glucose Calcium Troponin I High Sens Radiography Chest X-Ray - ED: 1 View, Read by ED Physician and - (Poor inspiration. No focal infiltrate.) EKG Initial EKG: Attestation: I personally reviewed and interpreted this EKG as follows: Interpretation: Sinus Rhythm (Sinus at 70 with widened QRS complex. Some elevation noted in the inferior leads. No reciprocal changes noted.) Follow-up EKG: Attestation: I personally reviewed and interpreted this EKG as follows: Interpretation: Sinus Rhythm (Sinus at 67 with wide QRS complex. No significant ST elevation noted. Q waves noted in the inferior and anterior leads.) Treatment and Re-Evaluation Comments:: On repeat evaluation patient resting more comfortably. He was given a DuoNeb treatment. Lab work reveals normal white count. INR is slightly supratherapeutic at 3.2. Dr. Brownlee did call nursing staff and gave instructions on decreasing the heparin drip rate. Chemistry studies unremarkable. Troponin at 40. Patient discussed with hospitalist for admission. Discharge Plan Triage Chief Complaint: Shortness of Breath ED Provider: May Doyle Dx/Rx/DC Orders Clinical Impression: COVID-19, Chest pain Prescriptions: No Action gabapentin 300 mg capsule 900 mg PO BID RF: 0 lisinopril 20 mg tablet 20 mg PO DAILY RF: 0 Hold Instructions: Hypotension clopidogrel 75 MG tablet 75 mg PO DAILY RF: 0 insulin lispro 100 UNIT/ML solution 17 unit SQ TIDCM RF: 0 latanoprost 2.5 ML drops 1 drp EACH EYE QHS RF: 0 aspirin 81 MG tablet 81 mg PO DAILY@0800 RF: 0 warfarin 3 MG tablet 6 mg PO SUTUTHSA RF: 0 colestipol 1 GM tablet 1 g PO BID RF: 0 fenofibrate nanocrystallized 145 MG tablet 145 mg PO DAILY RF: 0 insulin NPH isoph U-100 human 100 UNIT/ML suspension 32 units SQ BID RF: 0 ropinirole 0.5 MG tablet 0.5 mg PO DAILY RF: 0 Basaglar KwikPen U-100 Insulin RF: 0 carvedilol 6.25 mg tablet 3.125 mg PO BID RF: 0 amiodarone 200 mg Tablet 200 mg PO DAILY RF: 0 nortriptyline 25 mg Capsule 25 mg PO QHS RF: 0 fluoxetine 20 mg Tablet 20 mg PO DAILY RF: 0 Trulicity 3 mg/0.5 mL Pen Injector 3 mg SUBCUT QWEEK RF: 0 pantoprazole 40 mg tablet,delayed release (DR/EC) 40 mg PO DAILY Qty: 90 RF: 3 rosuvastatin 40 mg tablet 40 mg PO QHS Qty: 90 RF: 3 nitroglycerin 0.4 mg tablet, sublingual 0.4 mg SL Q5M PRN (Reason: Chest Pain) Qty: 25 RF: 3 isosorbide mononitrate 60 mg tablet extended release 24 hr 60 mg PO BID Qty: 180 RF: 3 spironolactone 25 mg tablet 25 mg PO DAILY Qty: 90 RF: 4 furosemide 40 mg tablet 40 mg PO BID Qty: 1 RF: 0 Primary Care Provider: Ramiro Null NP Referrals: Ramiro Null NP, [facility] [Primary Care Provider] - Disposition Disposition: Acute Care Hospital [facility]
--- NOTE | 2021-04-21 13:41 | ED.RN ---
dr. kign calls states do to pt. inr- decrease heparin drip to 500m units/hr. rn read orders back to states they will check inr tomorrow. dr. kiya todd.
--- NOTE | 2021-04-21 13:48 | NURSING ---
121 ANKUSH SILVA, CP OBS
--- NOTE | 2021-04-21 14:15 | HP.PCM.HOS_ITS ---
HPI - General General Date of Admission: 04/21/21 Date of Service: 04/21/21 Chief Complaint: Shortness of breath/chest pain HPI Narrative LOVELY LONG, is a 75 M who presented to the emergency department with [facility] on 04/21/2021 with shortness of breath and chest pain. He states that his chest pain has been ongoing for approximately a week but has worsened in this time. He states that he began having shortness of breath approximately 2 weeks ago and had other symptoms consistent with a COVID-19 infection. He was tested at that time and was negative although he had a repeat test this past Thursday on 04/17/2021 and was found to be positive. He reports that his symptoms have dramatically increased over the last 2 to 3 days. He does have a known history of coronary disease with 1 stent as well as an ischem ic cardiomyopathy and is on Coumadin at baseline for history of paroxysmal paroxysmal atrial fibrillation. His last cardiac catheterization appears to be in 2018 at which time he underwent a LHC and was found to have a normal left main, and LAD with mild luminal irregularities, first diagonal branch with 50% ostial stenosis, circumflex with 60% proximal stenosis and a right coronary artery which was totally occluded. Medical therapy was recommended at that time. He reports up until recently had been doing well. His most recent echocardiogram appears to be from 09/06/2019 at which time he was found to have a 47% ejection fraction and mild global hypokinesis of the LV with ICD leads in the RV. Other than the chest pain and shortness of breath he is denying any nausea or vomiting, diarrhea, fever, anosmia or dysgeusia. He is complaining of some fatigue, cough, intermittent headache, and chills. In the emergency department he was afebrile with mildly elevated blood pressures, normal heart rate in the sixties to eighties, normal mild tachypnea with respiratory rate of 18 and an oxygen saturation of 95 to 98% on room air. His CBC shows a mild chronic normocytic anemia and mild lymphopenia but was otherwise unremarkable. Coag studies were performed given his Coumadin use at baseline and his INR was found to be 3.2. His BMP was unremarkable and showed a baseline creatinine of 1.21. His serum glucose was 162 and initial troponin was 40. His chest x-ray shows hypoinflation with stable ICD placement but no infiltrates noted. His EKG showed an age-indeterminate inferior ID consistent with his history and clear evidence of Q waves in the inferior leaves and was not consistent with acute STEMI and had improvement on repeat EKG. He was seen by cardiology in the emergency department and admission was recommended as well as a continuation of heparin drip, cycling cardiac enzymes and continuation of dual antiplatelet therapy. He will be admitted to PCU for continued care. [facility] Medical History (Updated 04/21/21 @ 14:[address] 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 HFrEF (heart failure with reduced ejection fraction) History of deep vein thrombosis (DVT) of lower extremity History of non-ST elevation myocardial infarction (NSTEMI) (11/05/16) Hyperlipidemia Ischemic cardiomyopathy Localized edema Nondisp fracture of fifth left metatarsal bone with routine healing Nonrheumatic tricuspid (valve) insufficiency Nonsustained ventricular tachycardia Normocytic anemia Obesity 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 Other specified peripheral vascular diseases Paroxysmal atrial flutter Peripheral vascular occlusive disease Type 2 diabetes mellitus Ulcer of left lower extremity with fat layer exposed Ulcer of right lower extremity Ulcer of right lower extremity with fat layer exposed Ulcer of right lower extremity with fat layer exposed Walking difficulty due to ankle and foot Xerosis cutis Home Medications clopidogrel 75 mg PO DAILY 12/04/14 [History Last Taken 11/30/19 0900] insulin lispro 17 unit SQ TIDCM 08/25/17 [History Last Taken 01/04/20] aspirin 81 mg PO DAILY@0800 11/17/18 [History Last Taken 01/04/20] latanoprost 1 drp EACH EYE QHS 11/17/18 [History Last Taken 11/30/19 1200] warfarin 6 mg PO SUTUTHSA 11/17/18 [History Last Taken 12/29/19] colestipol 1 g PO BID 12/02/18 [History Last Taken 01/04/20] fenofibrate nanocrystallized 145 mg PO DAILY 12/02/18 [History Last Taken 01/04/20] insulin NPH isoph U-100 human 32 units SQ BID 12/02/18 [History Last Taken 11/30/19 0700] ropinirole 0.5 mg PO DAILY 09/05/19 [History Last Taken 01/04/20] gabapentin 300 mg capsule 900 mg PO BID cap 10/27/19 [History Last Taken 01/04/20] pantoprazole 40 mg tablet,delayed release 40 mg PO DAILY #90 tab 05/08/20 [Rx Last Taken Unknown] lisinopril 20 mg tablet 20 mg PO DAILY tab 06/06/20 [History Last Taken Unknown] rosuvastatin 40 mg tablet 40 mg PO QHS #90 tablet 07/05/20 [Rx Last Taken Unknown] nitroglycerin 0.4 mg sublingual tablet 0.4 mg SL Q5M PRN #25 tab 10/08/20 [Rx Last Taken Unknown] isosorbide mononitrate 60 mg tablet,extended release 24 hr 60 mg PO BID #180 tab 11/07/20 [Rx Last Taken Unknown] spironolactone 25 mg tablet 25 mg PO DAILY #90 tab 01/21/21 [Rx Last Taken Unknown] furosemide 40 mg tablet 40 mg PO BID #1 tab 02/27/21 [Rx Last Taken Unknown] Basaglar KwikPen U-100 Insulin 04/21/21 [History Last Taken Unknown] amiodarone 200 mg PO DAILY 04/21/21 [History Last Taken Unknown] carvedilol 3.125 mg PO BID 04/21/21 [History Last Taken Unknown] dulaglutide [Trulicity] 3 mg SUBCUT QWEEK 04/21/21 [History Last Taken Unknown] fluoxetine 20 mg PO DAILY 04/21/21 [History Last Taken Unknown] nortriptyline 25 mg PO QHS 04/21/21 [History Last Taken Unknown] Allergy/AdvReac Type Severity Reaction Status Date / Time ceftriaxone sodium Allergy Rash Verified 01/22/21 12:20 [From Rocephin] milk AdvReac Diarrhea Verified 01/22/21 12:20 morphine AdvReac hallucinati Verified 01/22/21 12:20 ons Family History Father , Age 78 Prostate cancer Mother , Age 80 CVA (cerebral vascular accident) Sister Congestive heart failure Diabetes Hypertension Hyperlipidemia Atrial fibrillation CAD (coronary artery disease) Cardiac defibrillator in situ Sister Breast cancer Sister Breast cancer Brother CAD (coronary artery disease) Myocardial infarction Diabetes Brother Diabetes Brother , Age 74 COPD (chronic obstructive pulmonary disease) Sister Alive and well Surgical History H/O colonoscopy with polypectomy (11/2017) History of angioplasty of peripheral vessel History of coronary artery stent placement (12/15/14) History of detached retina repair History of electrophysiologic study (11/23/02) History of implantable cardiac defibrillator (ICD) (11/19/17) History of left heart catheterization (12/06/18) History of radiofrequency ablation procedure for cardiac arrhythmia (07/01/11) Social History Smoking Status: Former smoker pack-years: 20 how long ago did patient quit smokin years ago alcohol intake: never caffeine: Yes Type: coffee Number of servings: 1 ROS Constitutional Constitutional: Reports chills, fatigue and weakness; Denies anorexia, change in weight, fever(s), malaise, night sweats or other Eyes Eyes: Denies blurry vision, change in eye color, change in vision, discharge from eye(s), double vision, erythema, eye pain, loss of vision or other ENT HEENT: Denies abnormal hearing, dysphagia, ear pain, epistaxis, headache(s), hearing loss, nasal congestion, nasal discharge, post nasal drip, sinus pressure, sore throat or other Cardiovascular Cardiovascular: Reports chest pain, dyspnea on exertion and edema; Denies claudication, lightheadedness, orthopnea, palpitations, paroxysmal nocturnal dyspnea, rapid heart rate, syncope or other Respiratory/Chest Respiratory/Chest: Reports cough, dyspnea, shortness of breath with exertion and wheezing; Denies excessive phlegm production, hemoptysis, productive cough, shortness of breath at rest or other Gastrointestinal Gastrointestinal: Denies abdominal pain, coffee ground emesis, constipation, di arrhea, dyspepsia, hematemesis, hematochezia, loose stools, melena, nausea, vomiting or other Genitourinary Genitourinary: Denies burning urination, difficulty urinating, dysuria, hematuria, nocturia, urinary frequency, urinary hesitancy, urinary incontinence, urinary urgency or other Musculoskeletal Musculoskeletal: Reports joint pain and joint stiffness; Denies arthralgias, back pain, joint swelling, myalgias, neck pain or other Neurologic Neurologic: Denies abnormal gait, abnormal speech, confusion, disequilibrium, dizziness, focal weakness, headache(s), numbness, paresthesias, seizure-like activity, seizures, syncope, tingling, tremor(s) or other Psychiatric Psychiatric: Denies anxiety, depression, homicidal ideation, suicidal ideation or other Endocrine Endocrinology: Denies change in body appearance, cold intolerance, excessive sweating, heat intolerance, polydipsia, polyuria or other Hematologic/Lymphatic Hematologic/Lymphatic: Denies anemia, easy bleeding, easy bruising, lymphadenopathy or other Allergic/Immunologic Allergic/Immunologic: Denies rhinitis, hives, eczemia, asthma or other Vital Signs Vital Signs Vital Signs: 04/21/21 12:17 04/21/21 12:19 04/21/21 12:55 Temperature 97.9 F 97.9 F Temperature Source Oral Oral Pulse Rate 72 72 67 Respiratory Rate 18 18 20 H Respiratory Effort Short of Breath Respiratory Depth Shallow Respiratory Pattern Normal Blood Pressure 131/88 H 131/88 H Blood Pressure Mean 102 102 Pulse Ox 95 95 Oxygen Delivery Method Room Air Room Air 04/21/21 13:24 Temperature 97.6 F L Temperature Source Temporal Pulse Rate 66 Respiratory Rate 16 Respiratory Effort Respiratory Depth Respiratory Pattern Blood Pressure 125/73 H Blood Pressure Mean 90 Pulse Ox 98 Oxygen Delivery Method Room Air Weight Weight: 132 kg Body Mass Index (BMI) 44.2 Physical Exam Const alert, oriented x3 and no apparent distress Constitutional Narrative: Morbidly obese, older white male sitting up in bed, appears comfortable, nontoxic, currently on room air General Appearance: cooperative HEENT normocephalic, head/scalp atraumatic and moist oral mucous membranes HEENT Narrative: Mild hard of hearing, dentition is fair, Mallampati is 3, no thrush Eyes PERRL, EOMs intact bilaterally and conjunctivae normal Eyes Narrative: No scleral icterus Neck no lymphadenopathy, supple and no JVD Neck Narrative: Trachea midline without any thyroid enlargement Resp no retractions, no use of accessory muscles and clear to auscultation bilaterally Resp Narrative: Diffusely diminished but clear Auscultation: Negative for crackles, rales, rhonchi or wheezes Cardio regular rate, regular rhythm, S1 normal heart sound, S2 normal heart sound, no murmurs, no rub, no gallops, no clicks and no JVD GI normal to inspection, nondistended, normoactive bowel sounds, soft to palpation, non-tender and non-distended; Negative for hepatosplenomegaly Extremity normal to inspection Extremity Narrative: No clubbing or cyanosis, patient does have some mild bilateral lower extremity pitting edema at trace to 1+ Peripheral Pulses: Yes pulses 2+ throughout Skin no wounds, skin turgor normal, no jaundice, no petechiae and no mottling Skin Narrative: Skin on lower extremities shows changes consistent with chronic venous stasis but no open wounds at this time Neuro oriented x3, CN's II-XII intact bilaterally, moves all extremities and no focal motor deficits Neuro Narrative: Mild generalized weakness Sensorium / Orientation: awake, alert, oriented to person, oriented to place and oriented to time Speech: speech normal Psych affect normal Psych Narrative: Very pleasant Results Lab / Micro Data Attestation: I reviewed the patient's lab results. Result Diagrams: 04/21/21 12:45 04/21/21 12:45 Labs: Laboratory Results - last 24 hr 04/21/21 12:45: PT 32.0 H, INR 3.2 04/21/21 12:45: WBC 5.5, RBC 4.18 L, Hgb 10.4 L, Hct 34.5 L, MCV 82.5, MCH 24.9 L, MCHC 30.1 L, RDW Std Deviation 46.6 H, RDW Coeff of [place] 15.6 H, Plt Count 222, MPV 9.2, Immature Gran % (Auto) 0.900, Neut % (Auto) 68.8, Lymph % (Auto) 16.6 L, [place] % (Auto) 8.8, Eos % (Auto) 4.4, Baso % (Auto) 0.5, Absolute Neuts (auto) 3.8, Absolute Lymphs (auto) 0.91, Nucleated RBC % 0 04/21/21 12:45: Sodium 139, Potassium 3.7, Chloride 104, Carbon Dioxide 30.0, Anion Gap 5, BUN 21 H, Creatinine 1.21, Estim Creat Clear Calc 51.03, Est GFR (MDRD) Af Amer 75, Est GFR (MDRD) Non-Af 62, BUN/Creatinine Ratio 17.4, Glucose 162 H, Calcium 7.6 L, Troponin I High Sens 40 04/21/21 12:45: APTT 42.4 H Assessment & Plan Assessment/Plan (1) Chest pain: (2) COVID-19 virus infection: (3) Abnormal EKG: PLAN: Chest pain with abnormal EKG -Patient was seen in the emergency department by cardiology for his abnormal EKG -Cardiology recommended we start heparin drip -Hold Coumadin -Continue dual antiplatelet therapy -Cycle cardiac enzymes -Check lipids -Check hemoglobin A1c -Check echocardiogram -Possible left heart catheterization tomorrow at the discretion of his primary networking administrator Dr. Perry -Case to be discussed by Dr. Brownlee with Dr. Perry tomorrow -May be related to his COVID-19 infection -Therapeutic INR so PE is doubtful COVID-19 infection -Patient is currently on room air with oxygen saturation 94 to 98% -14 days and the symptoms -Patient currently not meeting criteria for any Decadron or remdesivir at this time -Would be out of the window for remdesivir -If sats drop could consider Decadron although would heavily weigh risk-benefit ratio with his diabetes -Monitor clinically Ischemic cardiomyopathy -Most recent echo from 2020 shows an EF of 47% -does have an ICD in place -Continue carvedilol, Lasix, isosorbide mononitrate,, Aldactone CAD/HTN/HPL -Continue all home medications to include aspirin, Plavix, rosuvastatin, Aldactone, Coreg, lisinopril, isosorbide nitrate PAF -Continue amiodarone -Hold Coumadin while patient is on heparin drip -INR is currently therapeutic at 3.2 DM-2 -Hold home Trulicity -Continue NPH and lispro -SSI -Accu-Cheks GERD -Continue Protonix Restless leg syndrome -continue ropinirole Diabetic neuropathy -Continue gabapentin JESSICA -Continue BiPAP at at bedtime Morbid obesity -BMI 44.2 -Complicates overall treatment, prognosis, outcomes DVT prophylaxis -Heparin drip -INR was therapeutic at 3.2 on admission CODE STATUS -Full code Charges/Coding Visit Charges Inpatient E&M: 90201 Init Hosp L3
--- NOTE | 2021-04-21 15:14 | EKG12_ITS ---
Test Reason : CP ADMISSION Blood Pressure : / mmHG Vent. Rate : 069 BPM Atrial Rate : 069 BPM P-R Int : 226 ms QRS Dur : 102 ms QT Int : 188 ms P-R-T Axes : 057 -51 000 degrees QTc Int : 201 ms Sinus rhythm with 1st degree A-V block Left axis deviation Low voltage QRS Inferior infarct Confirmed by CA SIMMONS, ROBERT ([id number]), editor at large SABINE ALVAREZ ([id number]) on 04/23/2021 10:01:07 AM Referred By: ANKUSH Confirmed By:ROBERT PENALOZA MD
[2021-04-21 15:59] LABS: Troponin-I HS 40 pg/mL (3.0-78.0)
[2021-04-21 17:25] LABS: Bedside Glucose 128 mg/dL (70-110)
[2021-04-21] MEDS: Insulin Lispro 100 UNIT/ML INSULN.PEN 17 UNIT SC (18:00)
[2021-04-21 19:48] LABS: Troponin-I HS 36 pg/mL (3.0-78.0)
[2021-04-21] MEDS: Atorvastatin Calcium 80 MG Tablet PO (22:15)
[2021-04-21] MEDS: Gabapentin 300 MG Capsule 900 MG PO (22:15)
[2021-04-21] MEDS: Carvedilol 3.125 MG TABLET PO (22:15)
[2021-04-21] MEDS: Isosorbide Mononitrate 60 MG Tablet PO (22:15)
[2021-04-21] MEDS: Nortriptyline 25 MG Capsule PO (22:15)
[2021-04-21] MEDS: guaiFENesin 10 ML UDC (200MG/10ML) 20 ML PO (22:18)
[2021-04-21 22:26] LABS: Bedside Glucose 90 mg/dL (70-110)
[2021-04-21] MEDS: Latanoprost 0.005% 1 Bottle 1 DRP EACH EYE (22:38)
[2021-04-22] VITALS (10 sets, daily range): BP systolic 121–129; BP diastolic 72–77; PULSE 62–77; RESP 16–22; TEMP 35.7–36.6; O2SAT 95–97; BMI 42.5
[2021-04-22 04:07] LABS: Absolute Lymphocyte Count 0.96 X10^3/uL (0.83-4.51); Basophil# 0.05 X10^3/uL; Basophil% 1.1 % (0-1); Eosinophil# 0.24 X10^3/uL; Eosinophils% 5.1 % (0-5); Hematocrit 30.9 % (40-54); Hemoglobin 9.3 g/dL (13.0-16.5); Lymphocyte # 0.96 X10^3/ul (0.83-4.51); Lymphocyte % 20.5 % (19-41); Mean Corp Hgb Conc 30.1 g/dL (32-36); Mean Corpuscular Hgb 24.9 pg (27.0-32.0); Mean Corpuscular Volume 82.6 fL (80-94); Mean Platelet Vol. 8.8 fl (6.2-12.0); Monocyte# 0.45 X10^3/uL; Monocyte% 9.6 % (0-10); NRBC Flagged by Analyzer 0 % (0-5); Neutrophil # 2.95 X10^3/uL (2.7-7.7); Neutrophil % 62.8 % (47-70); Platelet Count 179 K/mm3 (150-450); RBC Distribution Width CV 15.6 % (11.6-14.6); RBC Distribution Width SD 46.6 fl (35.1-43.9); Red Blood Count 3.74 M/mm3 (4.6-6.2); White Blood Count 4.7 K/mm3 (4.4-11.0)
[2021-04-22 04:19] LABS: International Normalized Ratio 3.4; Prothrombin Time (Protime)PT. 33.4 SECONDS (11.7-14.9)
[2021-04-22 04:27] LABS: Partial Thromboplast Time 44.1 Seconds (24.1-36.2)
[2021-04-22 05:04] LABS: ALB/GLOB Ratio 0.9 RATIO (0.9-2.4); AST(SGOT) 50 U/L (15-37); Alanine Aminotransfer ALT/SGPT 42 U/L (16-61); Alkaline Phosphatase 64 U/L (45-117); Anion Gap 6 (5-15); BUN 19 mg/dL (7-18); BUN/Creat Ratio 14.8 RATIO (10-20); Calcium,Total 7.2 mg/dL (8.5-10.1); Chloride 103 mmol/L (98-107); Cholesterol 85 mg/dL (200); Creatinine, Serum 1.28 mg/dL (0.70-1.30); EST Glomerular Filtration Rate 58 mL/min (>60); Est Glom Filt Rate - Afr Amer 70 mL/min (>60); Estimated Creatinine Clearance 48.24 ml/min; Globulin 3.5 g/dL (2.2-4.2); Glucose 162 mg/dL (74-106); High Density Lipoprotein 27 mg/dL; Magnesium 1.4 mg/dL (1.6-2.6); Phosphorus 2.7 mg/dL (2.5-4.9); Potassium 3.3 mmol/L (3.5-5.1); Protein, Total 6.5 g/dL (6.4-8.2); Sodium Level 138 mmol/L (136-145); Thyroid Stim Hormone (TSH) 1.69 uIU/mL (0.358-3.74); Triglycerides 297 mg/dL; Very Low Density Lipoprotein 59 mg/dL (5-40)
--- NOTE | 2021-04-22 07:09 | ECHOL_ITS ---
Reason For Study: CHEST PAIN Procedure This was a limited 2D transthoracic echocardiogram. The study was technically limited. Limited views were obtained. Pt sitting in chair. Exam performed portable in patient room. The exam was abbreviated due to the COVID 19 protocol. Left Ventricle Normal LV size. The estimated ejection fraction is 45 %. Infero-Basal: Severely Hypokinetic. Mid- Inferior: Akinetic. Mid-Posterior: Akinetic. The rest of the wall segments are hypokinetic. Right Ventricle Normal RV size. ICD or pacer leads identified within the right ventricle. Normal systolic function. Mitral Valve Normal mitral valve. Tricuspid Valve Normal tricuspid valve. Mild to moderate (1-2+) tricuspid valve insufficiency. Pulmonary artery systolic pressure is 36 mmHg. MMode/2D Measurements & Calculations LVIDd: 5.6 cm IVSd: 1.0 cm LVIDs: 4.6 cm LVPWd: 1.1 cm FS: 19.4 % Doppler Measurements & Calculations TR max tia: 286.0 cm/sec TR max P.7 mmHg ECHO/Echo, Limited Study Interpretation Summary Normal LV size. The estimated ejection fraction is 45 %. Pulmonary artery systolic pressure is 36 mmHg. Compared to previous study, the left ventricular systolic function is the same. . Ordering Physician: Johan Perry Referring Physician: KATH NIELSEN Performed By: Rosana Rios, RDCS, RVT
--- NOTE | 2021-04-22 07:12 | PN.CARD_ITS ---
Subjective Subjective Patient evaluated history reviewed Objective Data Vital Signs: Vital Signs Temp Pulse Resp BP Pulse Ox 97.8 F 63 16 129/77 H 96 04/22/21 02:00 04/22/21 03:00 04/22/21 02:00 04/22/21 02:00 04/22/21 02:00 Oxygen Delivery Method Room Air Weight: 279 lb 12.266 oz Body Mass Index (BMI) 42.5 Intake & Output: Intake and Output for Last 24 Hours 04/20/21 04/21/21 04/22/21 23:59 23:59 23:59 Intake Total 255.60 / 495.60 427.75 / 427.75 Output Total 400 / 1150 1150 / 1150 Balance -144.40 / -654.40 -722.25 / -722.25 Lab / Micro Data Result Diagrams: 04/22/21 03:55 04/22/21 03:55 Labs: Laboratory Results - last 24 hr 04/21/21 12:45: PT 32.0 H, INR 3.2 04/21/21 12:45: WBC 5.5, RBC 4.18 L, Hgb 10.4 L, Hct 34.5 L, MCV 82.5, MCH 24.9 L, MCHC 30.1 L, RDW Std Deviation 46.6 H, RDW Coeff of Galo 15.6 H, Plt Count 222, MPV 9.2, Immature Gran % (Auto) 0.900, Neut % (Auto) 68.8, Lymph % (Auto) 16.6 L, [place] % (Auto) 8.8, Eos % (Auto) 4.4, Baso % (Auto) 0.5, Absolute Neuts (auto) 3.8, Absolute Lymphs (auto) 0.91, Nucleated RBC % 0 04/21/21 12:45: Sodium 139, Potassium 3.7, Chloride 104, Carbon Dioxide 30.0, Anion Gap 5, BUN 21 H, Creatinine 1.21, Estim Creat Clear Calc 51.03, Est GFR (MDRD) Af Amer 75, Est GFR (MDRD) Non-Af 62, BUN/Creatinine Ratio 17.4, Glucose 162 H, Calcium 7.6 L, Troponin I High Sens 40 04/21/21 12:45: APTT 42.4 H 04/21/21 15:35: Troponin I High Sens 40 04/21/21 17:21: POC Glucose 128 H 04/21/21 18:34: Troponin I High Sens 36 04/21/21 22:08: POC Glucose 90 04/22/21 03:55: WBC 4.7, RBC 3.74 L, Hgb 9.3 L, Hct 30.9 L, MCV 82.6, MCH 24.9 L , MCHC 30.1 L, RDW Std Deviation 46.6 H, RDW Coeff of [place] 15.6 H, Plt Count 179, MPV 8.8, Immature Gran % (Auto) 0.900, Neut % (Auto) 62.8, Lymph % (Auto) 20.5, [place] % (Auto) 9.6, Eos % (Auto) 5.1 H, Baso % (Auto) 1.1 H, Absolute Neuts (auto) 3.0, Absolute Lymphs (auto) 0.96, Nucleated RBC % 0 04/22/21 03:55: Sodium 138, Potassium 3.3 L, Chloride 103, Carbon Dioxide 29.0, Anion Gap 6, BUN 19 H, Creatinine 1.28, Estim Creat Clear Calc 48.24, Est GFR (MDRD) Af Amer 70, Est GFR (MDRD) Non-Af 58 L, BUN/Creatinine Ratio 14.8, Glucose 162 H, Calcium 7.2 L, Phosphorus 2.7, Magnesium 1.4 L, Total Bilirubin 0.60, AST 50 H, ALT 42, Alkaline Phosphatase 64, Total Protein 6.5, Albumin 3.0 L, Globulin 3.5, Albumin/Globulin Ratio 0.9, Triglycerides 297 H, Cholesterol 85, LDL Cholesterol -1 L, VLDL Cholesterol 59 H, HDL Cholesterol 27 L, TSH 1.69 04/22/21 03:55: PT 33.4 H, INR 3.4 04/22/21 03:55: APTT 44.1 H Cardiology Labs/Tests 04/21/21 12:45: PT 32.0 H, INR 3.2 04/21/21 12:45: WBC 5.5, RBC 4.18 L, Hgb 10.4 L, Hct 34.5 L, MCV 82.5, MCH 24.9 L, MCHC 30.1 L, Plt Count 222, MPV 9.2, Immature Gran % (Auto) 0.900, Neut % (Auto) 68.8, Lymph % (Auto) 16.6 L, [place] % (Auto) 8.8, Eos % (Auto) 4.4, Baso % (Auto) 0.5, Absolute Neuts (auto) 3.8, Nucleated RBC % 0 04/21/21 12:45: Sodium 139, Potassium 3.7, Chloride 104, Carbon Dioxide 30.0, Anion Gap 5, BUN 21 H, Creatinine 1.21, Est GFR (MDRD) Af Amer 75, Est GFR (MDRD) Non-Af 62, BUN/Creatinine Ratio 17.4, Glucose 162 H, Calcium 7.6 L 04/21/21 12:45: APTT 42.4 H 04/22/21 03:55: WBC 4.7, RBC 3.74 L, Hgb 9.3 L, Hct 30.9 L, MCV 82.6, MCH 24.9 L , MCHC 30.1 L, Plt Count 179, MPV 8.8, Immature Gran % (Auto) 0.900, Neut % (Auto) 62.8, Lymph % (Auto) 20.5, [place] % (Auto) 9.6, Eos % (Auto) 5.1 H, Baso % (Auto) 1.1 H, Absolute Neuts (auto) 3.0, Nucleated RBC % 0 04/22/21 03:55: Sodium 138, Potassium 3.3 L, Chloride 103, Carbon Dioxide 29.0, Anion Gap 6, BUN 19 H, Creatinine 1.28, Est GFR (MDRD) Af Amer 70, Est GFR (MDRD) Non-Af 58 L, BUN/Creatinine Ratio 14.8, Glucose 162 H, Calcium 7.2 L, Phosphorus 2.7, Magnesium 1.4 L, Total Bilirubin 0.60, Triglycerides 297 H, Cholesterol 85, LDL Cholesterol -1 L, VLDL Cholesterol 59 H, HDL Cholesterol 27 L 04/22/21 03:55: PT 33.4 H, INR 3.4 04/22/21 03:55: APTT 44.1 H Rhythm: EKG: ECHO: Stress Test: Cardiac Cath: PCI: CT Surgery: Holter monitor: EPS: PPM: CXR: Chest CT Scan: Assessment & Plan Assessment/Plan (1) Chest pain: PLAN: Patient presents with chest discomfort which does not appear to be typical angina. Cardiac enzymes are normal at this time and EKG demonstrates no change. The plan would be for him to recover from his COVID-19 infection completely and then suggest pharmacologic stress testing. Limited echo be performed at this time to exclude any wall motion abnormalities. If the above is similar to previous echo and the patient stable he can be discharged for outpatient follow-up. (2) History of coronary artery stent placement: PLAN: Patient is status post previous angioplasty and stenting. The plan to be to continue current medical therapy and obtain pharmacologic myocardial perfusion stress test as an outpatient. (3) History of implantable cardiac defibrillator (ICD): PLAN: Patient is status post ICD implantation. There is no evidence of ICD defibrillator discharge. He will continue to be followed up in the office in the device clinic. (4) Ischemic cardiomyopathy: PLAN: Patient has a history of ischemic cardiomyopathy. The plan is to continue the current medical therapy without any major changes. The beta- jennyfer will be increased to 6.25 mg twice a day. (5) Essential (primary) hypertension: PLAN: He does have a history of hypertension with his blood pressure under good control. Plan is to continue the same without making any changes.
--- NOTE | 2021-04-22 07:59 | PCM.PN.HOSP ---
Objective Data Objective Data Vital Signs: Vital Signs Temp Pulse Resp BP Pulse Ox 97.8 F 62 16 129/77 H 95 04/22/21 02:00 04/22/21 07:00 04/22/21 02:00 04/22/21 02:00 04/22/21 07:26 Oxygen Delivery Method Room Air Weight: 279 lb 12.266 oz Body Mass Index (BMI) 42.5 Intake & Output: Intake and Output for Last 24 Hours 04/20/21 04/21/21 04/22/21 23:59 23:59 23:59 Intake Total 255.60 / 495.60 427.75 / 427.75 Output Total 400 / 1150 1150 / 1150 Balance -144.40 / -654.40 -722.25 / -722.25 Lab / Micro Data Result Diagrams: 04/22/21 03:55 04/22/21 03:55 Labs: Laboratory Results - last 24 hr 04/21/21 12:45: PT 32.0 H, INR 3.2 04/21/21 12:45: WBC 5.5, RBC 4.18 L, Hgb 10.4 L, Hct 34.5 L, MCV 82.5, MCH 24.9 L, MCHC 30.1 L, RDW Std Deviation 46.6 H, RDW Coeff of Galo 15.6 H, Plt Count 222, MPV 9.2, Immature Gran % (Auto) 0.900, Neut % (Auto) 68.8, Lymph % (Auto) 16.6 L, [place] % (Auto) 8.8, Eos % (Auto) 4.4, Baso % (Auto) 0.5, Absolute Neuts (auto) 3.8, Absolute Lymphs (auto) 0.91, Nucleated RBC % 0 04/21/21 12:45: Sodium 139, Potassium 3.7, Chloride 104, Carbon Dioxide 30.0, Anion Gap 5, BUN 21 H, Creatinine 1.21, Estim Creat Clear Calc 51.03, Est GFR (MDRD) Af Amer 75, Est GFR (MDRD) Non-Af 62, BUN/Creatinine Ratio 17.4, Glucose 162 H, Calcium 7.6 L, Troponin I High Sens 40 04/21/21 12:45: APTT 42.4 H 04/21/21 15:35: Troponin I High Sens 40 04/21/21 17:21: POC Glucose 128 H 04/21/21 18:34: Troponin I High Sens 36 04/21/21 22:08: POC Glucose 90 04/22/21 03:55: WBC 4.7, RBC 3.74 L, Hgb 9.3 L, Hct 30.9 L, MCV 82.6, MCH 24.9 L, MCHC 30.1 L, RDW Std Deviation 46.6 H, RDW Coeff of Galo 15.6 H, Plt Count 179, MPV 8.8, Immature Gran % (Auto) 0.900, Neut % (Auto) 62.8, Lymph % (Auto) 20.5, [place] % (Auto) 9.6, Eos % (Auto) 5.1 H, Baso % (Auto) 1.1 H, Absolute Neuts (auto) 3.0, Absolute Lymphs (auto) 0.96, Nucleated RBC % 0 04/22/21 03:55: Sodium 138, Potassium 3.3 L, Chloride 103, Carbon Dioxide 29.0, Anion Gap 6, BUN 19 H, Creatinine 1.28, Estim Creat Clear Calc 48.24, Est GFR (MDRD) Af Amer 70, Est GFR (MDRD) Non-Af 58 L, BUN/Creatinine Ratio 14.8, Glucose 162 H, Calcium 7.2 L, Phosphorus 2.7, Magnesium 1.4 L, Total Bilirubin 0.60, AST 50 H, ALT 42, Alkaline Phosphatase 64, Total Protein 6.5, Albumin 3.0 L, Globulin 3.5, Albumin/Globulin Ratio 0.9, Triglycerides 297 H, Cholesterol 85, LDL Cholesterol -1 L, VLDL Cholesterol 59 H, HDL Cholesterol 27 L, TSH 1.69 04/22/21 03:55: PT 33.4 H, INR 3.4 04/22/21 03:55: APTT 44.1 H Assessment & Plan Assessment/Plan (1) Chest pain: (2) COVID-19 virus infection: (3) Abnormal EKG: PLAN: This 75-year-old gentleman was admitted with shortness of breath for 2 weeks and chest pain for 1 week ongoing for about but worsened couple days before admission. He tested COVID-19 positive on 04/17/2021 and about 2 weeks prior to admission. Chest pain with abnormal EKG -Patient was seen in the emergency department by cardiology for his abnormal EKG -Cardiology recommended we start heparin drip -Hold Coumadin -Continue dual antiplatelet therapy -Cycle cardiac enzymes -Check lipids -Check hemoglobin A1c -Check echocardiogram -Possible left heart catheterization tomorrow at the discretion of his primary home health cna Dr. Perry Last cardiac cath 2018, normal left main, LAD first diagonal 50% ostial stenosis, circumflex, proximal 60% mid RCA totally occluded -May be related to his COVID-19 infection -Therapeutic INR so PE is doubtful COVID-19 infection -Patient is currently on room air with oxygen saturation 94 to 98% -14 days and the symptoms -Patient currently not meeting criteria for any Decadron or remdesivir at this time -Would be out of the window for remdesivir -If sats drop could consider Decadron although would heavily weigh risk-benefit ratio with his diabetes -Monitor clinically Ischemic cardiomyopathy -Most recent echo from 08/2019 shows an EF of 47%. -does have an ICD in place -Continue carvedilol, Lasix, isosorbide mononitrate,, Aldactone CAD/HTN/HPL -Continue all home medications to include aspirin, Plavix, rosuvastatin, Aldactone, Coreg, lisinopril, isosorbide nitrate PAF -Continue amiodarone -Hold Coumadin while patient is on heparin drip -INR is currently therapeutic at 3.2 DM-2 -Hold home Trulicity -Continue NPH and lispro -SSI -Accu-Cheks GERD -Continue Protonix Restless leg syndrome -continue ropinirole Diabetic neuropathy -Continue gabapentin JESSICA -Continue BiPAP at at bedtime Morbid obesity -BMI 44.2 -Complicates overall treatment, prognosis, outcomes DVT prophylaxis -Heparin drip -INR was therapeutic at 3.2 on admission CODE STATUS -Full code
[2021-04-22] MEDS: Gabapentin 300 MG Capsule 900 MG PO (08:41)
[2021-04-22] MEDS: Isosorbide Mononitrate 60 MG Tablet PO (08:42)
[2021-04-22] MEDS: Carvedilol 6.25 MG Tablet PO (08:42)
[2021-04-22] MEDS: Fenofibrate 145 MG Tablet PO (08:42)
[2021-04-22] MEDS: Clopidogrel Bisulfate 75 MG Tablet PO (08:42)
[2021-04-22] MEDS: Pantoprazole Sodium 40 MG Tablet PO (08:43)
[2021-04-22] MEDS: FLUoxetine 20 MG Capsule PO (08:43)
[2021-04-22] MEDS: Amiodarone 200 MG Tablet PO (08:43)
[2021-04-22] MEDS: Pramipexole Di-HCl 0.25 MG Tablet PO (08:43)
[2021-04-22] MEDS: Spironolactone 25 MG Tablet PO (08:43)
[2021-04-22] MEDS: Furosemide 40 MG Tablet PO (08:43)
[2021-04-22] MEDS: Insulin Lispro 100 UNIT/ML INSULN.PEN 17 UNIT SC ×2 (08:46→12:38)
[2021-04-22] MEDS: Insulin Lispro 100 UNIT/ML INSULN.PEN SC ×2 (08:46→12:39)
[2021-04-22] MEDS: Insulin NPH Human 100 UNITS/ML PEN 32 UNITS SC (08:47)
[2021-04-22 08:56] LABS: Bedside Glucose 181 mg/dL (70-110)
[2021-04-22 09:14] LABS: Hemoglobin A1c 7.1 % (3.8-5.6)
[2021-04-22] MEDS: Albuterol 2.5 MG/3 ML VIAL.NEB. INHALATION ×2 (09:41→15:12)
[2021-04-22] MEDS: Aspirin E.C. 81 MG Tablet PO (10:12)
--- NOTE | 2021-04-22 11:27 | DCINST_ITS ---
Discharge Instructions Diet Discharge Diet: Low fat / Low cholesterol and 2000 mg Sodium Diet Activity Discharge Activity: Return to Normal Activity and May Not Drive Dressing / Incision Call your doctor if you observe: Fever of 101 or Higher, Coldness, Increased Pain, Numbness or Tingling, Change in Color, Inability to urinate, Inability to have a bowel movement, Shortness of breath, Dizziness, Fainting spells, Swelling in the ankles, Chest pain, Prolonged hiccupping, Increased palpitations (irregular heartbeat), Calf discomfort and Uncontrolled pain Follow Up Care Test Results: Test results from this visit will be discussed in further detail at your follow-up appointment, if applicable. Discharge Plan Admission Admit Date/Time: 04/21/21 13:45 Primary Reason for Your Visit: Atypical chest pain, COVID-19 Attending Provider: Feliberto Burton Primary Care Provider: Ramiro Null NP Consulting Providers: Carissa Brownlee Instructions Additional Instructions / Restrictions: Check PT/NR tomorrow and titrate the dose of warfarin accordingly in consultation with PCP Discharge Orders/Prescriptions Prescriptions: Continued gabapentin 300 mg capsule 900 mg PO TID RF: 0 lisinopril 20 mg tablet 20 mg PO DAILY RF: 0 Hold Instructions: Hypotension clopidogrel 75 MG tablet 75 mg PO DAILY RF: 0 insulin lispro 100 UNIT/ML solution 20 unit SQ TIDCM RF: 0 latanoprost 2.5 ML drops 1 drp EACH EYE QHS RF: 0 aspirin 81 MG tablet 81 mg PO DAILY@0800 RF: 0 colestipol 1 GM tablet 1 g PO BID RF: 0 fenofibrate nanocrystallized 145 MG tablet 145 mg PO DAILY RF: 0 insulin NPH isoph U-100 human 100 UNIT/ML suspension 32 units SQ BID RF: 0 ropinirole 0.5 MG tablet 0.5 mg PO DAILY RF: 0 Basaglar KwikPen U-100 Insulin RF: 0 carvedilol 6.25 mg tablet 3.125 mg PO BID RF: 0 amiodarone 200 mg Tablet 200 mg PO DAILY RF: 0 nortriptyline 25 mg Capsule 25 mg PO QHS RF: 0 fluoxetine 20 mg Tablet 20 mg PO DAILY RF: 0 Trulicity 3 mg/0.5 mL Pen Injector 3 mg SUBCUT QWEEK RF: 0 pantoprazole 40 mg tablet,delayed release (DR/EC) 40 mg PO DAILY Qty: 90 RF: 3 rosuvastatin 40 mg tablet 40 mg PO QHS Qty: 90 RF: 3 nitroglycerin 0.4 mg tablet, sublingual 0.4 mg SL Q5M PRN (Reason: Chest Pain) Qty: 25 RF: 3 isosorbide mononitrate 60 mg tablet extended release 24 hr 60 mg PO BID Qty: 180 RF: 3 spironolactone 25 mg tablet 25 mg PO DAILY Qty: 90 RF: 4 furosemide 40 mg tablet 40 mg PO BID Qty: 1 RF: 0 Changed warfarin 3 MG tablet 5 mg PO SUTUTHSA Qty: 0 RF: 0 Referrals / Follow Up: Johan Perry MD [STAFF PHYSICIAN] - Within 2 Weeks (for outpatient Stess test ) Ramiro Null NP, CLINICAL REGISTERED NURSE-C [Primary Care Provider] - In 1 Week Disposition Disposition (needs filled in before D/C Order can be placed): Home, Self Care
--- NOTE | 2021-04-22 11:28 | DS.PCM_ITS ---
Providers Date of Admission: 04/21/21 Date of Discharge: 04/22/21 Primary Care Physician: NICOL Mak Consultations 04/21/21 15:00 Consult: Cardiology Routine Consulting Provider: Carissa Brownlee Reason for Consult: Chest Pain EMERGENT Consult: No MD Notified: Yes Date Notified: 04/21/21 Time Notified: 15:04 Method of Notification: Text Comments:: Seen In ED Reason For Visit: CHEST PAIN Diagnosis Discharge Diagnosis (1) Chest pain: Status: Acute Code(s): R07.9 - Chest pain, unspecified (2) COVID-19 virus infection: Status: Acute Code(s): U07.1 - COVID-19 (3) Abnormal EKG: Status: Acute Code(s): R94.31 - Abnormal electrocardiogram [ECG] [EKG] Medications at Discharge Home Medications clopidogrel 75 mg PO DAILY 12/04/14 insulin lispro 20 unit SQ TIDCM 08/25/17 aspirin 81 mg PO DAILY@0800 11/17/18 latanoprost 1 drp EACH EYE QHS 11/17/18 colestipol 1 g PO BID 12/02/18 fenofibrate nanocrystallized 145 mg PO DAILY 12/02/18 insulin NPH isoph U-100 human 32 units SQ BID 12/02/18 ropinirole 0.5 mg PO DAILY 09/05/19 gabapentin 300 mg capsule 900 mg PO TID cap 10/27/19 pantoprazole 40 mg tablet,delayed release 40 mg PO DAILY #90 tab 05/08/20 lisinopril 20 mg tablet 20 mg PO DAILY tab 06/06/20 rosuvastatin 40 mg tablet 40 mg PO QHS #90 tablet 07/05/20 nitroglycerin 0.4 mg sublingual tablet 0.4 mg SL Q5M PRN #25 tab 10/08/20 isosorbide mononitrate 60 mg tablet,extended release 24 hr 60 mg PO BID #180 tab 11/07/20 spironolactone 25 mg tablet 25 mg PO DAILY #90 tab 01/21/21 furosemide 40 mg tablet 40 mg PO BID #1 tab 02/27/21 Basaglar KwikPen U-100 Insulin 04/21/21 Trulicity 3 mg SUBCUT QWEEK 04/21/21 amiodarone 200 mg PO DAILY 04/21/21 carvedilol 3.125 mg PO BID 04/21/21 fluoxetine 20 mg PO DAILY 04/21/21 nortriptyline 25 mg PO QHS 04/21/21 warfarin 5 mg PO SUTUTHSA #0 tab 04/22/21 Hospital Course Summary of Care Provided Hospital Course: This 75-year-old gentleman was admitted with shortness of breath for 2 weeks and chest pain for 1 week. Patient has symptoms consistent with chest pain. His chest pain clinically looks more pleuritic in nature on coughing on midsternal localized. Patient had LHC in 2019 shows mild luminal ir regularities, D1 ostial 50%, circumflex proximal 60% and RCA totally occluded. Recent echo on 09/06/19 47% EF. Patient admitted in PCU. Patient was evaluated by information security manager. Isolated troponins are normal limit. EKG does not show any new ischemic changes. Limited 2D echo was done. Limited echo shows 35% LV systolic function similar to previous study. Discussed with information security manager. Classroom Paraprofessional suggested pharmacological stress test after recovery from the COVID-19 infection. Patient has ischemic cardiomyopathy secondary to coronary artery disease and had ICD. No recent ICD discharge. Continue carvedilol, Lasix, sodium monitoring Aldactone. Potassium 3.3. Fasting profile triglyceride 297, HDL 27. Total cholesterol 85. COVID-19 infection: Currently patient saturation is 97% on room air. Patient already has 14 days of symptoms therefore 1 week more quarantine. -Patient is currently on room air with oxygen saturation 94 to 98% His other comorbidities include hypertension, dyslipidemia, paroxysmal A. fib on amiodarone. INR supratherapeutic 3.4, warfarin on hold. Advised follow-up INR tomorrow and reduce the dose as per INR. Diabetes mellitus type 2, uncontrolled: Patient glucose fluctuates from 92- 181 milligrams per deciliter. Continue home Trulicity and insulin regimen. Follow with PCP. Other comorbidities include GERD, restless leg syndrome, diabetic on BiPAP , neuropathy, JESSICA and morbid obesity Discharge medication reconciliation done. Discharge follow-up instructions completed. Discharge process discussed with the patient and all questions were answered to patient's satisfaction. Total time spent, exact 35 minutes on discharge meds reconciliation, examination, coordination of care with nurses and ancillary staff, review of imaging and blood test and discussion with the patient on follow-up instructions Physical Exam Narrative Patient is on room air. Chest pain is resolved and is more pleuritic in nature on coughing, localized mid central, 3-5/10 intensity intermittently General: Alert, Oriented x3, Cooperative HEENT: Atraumatic, PERRLA, EOMI, Normocephalic Oral: No Gingival or Mucosal Lesions/ Ulcerations Neck: Supple, No JVD, Negative Carotid Bruits Lungs: Air entry diminished in bilateral lung bases. No crepitation/rhonchi. On room air Cardiovascular: Sinus rhythm on supervisor assembly room. Normal S1, Normal S2, No murmurs Abdomen: Bowel Sounds Present, Soft, Non Tender, Non-Distended : No renal angle tenderness. No suprapubic tenderness. Extremities: Trace bilateral pitting leg edema, Capillary Refill Less than 3 Seconds Skin: Small scab on right leg. No open ulcer. Musculoskeletal: No Tenderness to Palpation of Joints or Extremities Neurological: Cranial nerves II-XII grossly intact, DTR 2+/4 and Symmetrical, Neuro grossly intact Psych/Mental Status: Normal Affect, Appropriate. Weight / BMI Weight Weight: 279 lb 12.266 oz Body Mass Index (BMI) 42.5 ABG / Lab / Microbiology Data Result Diagrams: 04/22/21 03:55 04/22/21 03:55 Laboratory: Laboratory Results - last 24 hr 04/21/21 12:45: PT 32.0 H, INR 3.2 04/21/21 12:45: WBC 5.5, RBC 4.18 L, Hgb 10.4 L, Hct 34.5 L, MCV 82.5, MCH 24.9 L, MCHC 30.1 L, RDW Std Deviation 46.6 H, RDW Coeff of Galo 15.6 H, Plt Count 222, MPV 9.2, Immature Gran % (Auto) 0.900, Neut % (Auto) 68.8, Lymph % (Auto) 16.6 L, [place] % (Auto) 8.8, Eos % (Auto) 4.4, Baso % (Auto) 0.5, Absolute Neuts (auto) 3.8, Absolute Lymphs (auto) 0.91, Nucleated RBC % 0 04/21/21 12:45: Sodium 139, Potassium 3.7, Chloride 104, Carbon Dioxide 30.0, Anion Gap 5, BUN 21 H, Creatinine 1.21, Estim Creat Clear Calc 51.03, Est GFR (MDRD) Af Amer 75, Est GFR (MDRD) Non-Af 62, BUN/Creatinine Ratio 17.4, Glucose 162 H, Calcium 7.6 L, Troponin I High Sens 40 04/21/21 12:45: APTT 42.4 H 04/21/21 15:35: Troponin I High Sens 40 04/21/21 17:21: POC Glucose 128 H 04/21/21 18:34: Troponin I High Sens 36 04/21/21 22:08: POC Glucose 90 04/22/21 03:55: Hemoglobin A1c 7.1 H 04/22/21 03:55: WBC 4.7, RBC 3.74 L, Hgb 9.3 L, Hct 30.9 L, MCV 82.6, MCH 24.9 L , MCHC 30.1 L, RDW Std Deviation 46.6 H, RDW Coeff of Galo 15.6 H, Plt Count 179, MPV 8.8, Immature Gran % (Auto) 0.900, Neut % (Auto) 62.8, Lymph % (Auto) 20.5, [place] % (Auto) 9.6, Eos % (Auto) 5.1 H, Baso % (Auto) 1.1 H, Absolute Neuts ( auto) 3.0, Absolute Lymphs (auto) 0.96, Nucleated RBC % 0 04/22/21 03:55: Sodium 138, Potassium 3.3 L, Chloride 103, Carbon Dioxide 29.0, Anion Gap 6, BUN 19 H, Creatinine 1.28, Estim Creat Clear Calc 48.24, Est GFR (MDRD) Af Amer 70, Est GFR (MDRD) Non-Af 58 L, BUN/Creatinine Ratio 14.8, Glucos e 162 H, Calcium 7.2 L, Phosphorus 2.7, Magnesium 1.4 L, Total Bilirubin 0.60, AST 50 H, ALT 42, Alkaline Phosphatase 64, Total Protein 6.5, Albumin 3.0 L, Globulin 3.5, Albumin/Globulin Ratio 0.9, Triglycerides 297 H, Cholesterol 85, LDL Cholesterol -1 L, VLDL Cholesterol 59 H, HDL Cholesterol 27 L, TSH 1.69 04/22/21 03:55: PT 33.4 H, INR 3.4 04/22/21 03:55: APTT 44.1 H 04/22/21 08:32: POC Glucose 181 H Radiography Diagnostic Testing: Radiology Impression Chest X-Ray 04/21/21 12:38 IMPRESSION: Mild degree of increased markings at the right lung base suggestive of atelectasis. Electronically Signed: Cosmo Malone MD at 8:50 EST , Service support , Meaningful Use Info Meaningful Use Diagnoses (Choose all that apply): None applicable Discharge Plan Admission Admit Date/Time: 04/21/21 13:45 Primary Reason for Your Visit: Atypical chest pain, COVID-19 Attending Provider: Feliberto Burton Primary Care Provider: Ramiro Null NP Consulting Providers: Carissa Brownlee Instructions Additional Instructions / Restrictions: Check PT/NR tomorrow and titrate the dose of warfarin accordingly in consultation with PCP Discharge Orders/Prescriptions Prescriptions: Continued gabapentin 300 mg capsule 900 mg PO TID RF: 0 lisinopril 20 mg tablet 20 mg PO DAILY RF: 0 Hold Instructions: Hypotension clopidogrel 75 MG tablet 75 mg PO DAILY RF: 0 insulin lispro 100 UNIT/ML solution 20 unit SQ TIDCM RF: 0 latanoprost 2.5 ML drops 1 drp EACH EYE QHS RF: 0 aspirin 81 MG tablet 81 mg PO DAILY@0800 RF: 0 colestipol 1 GM tablet 1 g PO BID RF: 0 fenofibrate nanocrystallized 145 MG tablet 145 mg PO DAILY RF: 0 insulin NPH isoph U-100 human 100 UNIT/ML suspension 32 units SQ BID RF: 0 ropinirole 0.5 MG tablet 0.5 mg PO DAILY RF: 0 Basaglar KwikPen U-100 Insulin RF: 0 carvedilol 6.25 mg tablet 3.125 mg PO BID RF: 0 amiodarone 200 mg Tablet 200 mg PO DAILY RF: 0 nortriptyline 25 mg Capsule 25 mg PO QHS RF: 0 fluoxetine 20 mg Tablet 20 mg PO DAILY RF: 0 Trulicity 3 mg/0.5 mL Pen Injector 3 mg SUBCUT QWEEK RF: 0 pantoprazole 40 mg tablet,delayed release (DR/EC) 40 mg PO DAILY Qty: 90 RF: 3 rosuvastatin 40 mg tablet 40 mg PO QHS Qty: 90 RF: 3 nitroglycerin 0.4 mg tablet, sublingual 0.4 mg SL Q5M PRN (Reason: Chest Pain) Qty: 25 RF: 3 isosorbide mononitrate 60 mg tablet extended release 24 hr 60 mg PO BID Qty: 180 RF: 3 spironolactone 25 mg tablet 25 mg PO DAILY Qty: 90 RF: 4 furosemide 40 mg tablet 40 mg PO BID Qty: 1 RF: 0 Changed warfarin 3 MG tablet 5 mg PO SUTUTHSA Qty: 0 RF: 0 Referrals / Follow Up: Johan Perry MD [STAFF PHYSICIAN] - Within 2 Weeks (for outpatient Stess test ) Ramiro Null NP, DATA MODELING ARCHITECT-C [Primary Care Provider] - In 1 Week Disposition Disposition (needs filled in before D/C Order can be placed): Home, Self Care Charges/Coding Visit Charges OBSV E&M: 85648 Observation care discharge
[2021-04-22 12:46] LABS: Bedside Glucose 168 mg/dL (70-110)
--- NOTE | 2021-04-22 13:31 | CASEMGMT ---
Pt states is at home but not with COVID sx's at this time. Plan is for pt to come back for OP Stress s/p COVID. ECHO is pending. Pt states no concerns with going home at time of discharge and declines need for any further therapy. Therapy eval is still pending. CM to follow. Zack ORTIZ CM
--- NOTE | 2021-04-22 14:41 | CASEMGMT ---
Therapy is recommending [facility] for pt and that pt use his WW at home instead of cane. Pt is now agreeable and after provided list of [facility] providers including quality and resource use data and consistent with the patient?s preferred geographic region, medical needs, and insurance network. Pt states would like [facility] for PT/OT. Order placed and call to Mally at [facility] with referral. Zack ORTIZ CM
--- NOTE | 2021-04-22 16:00 | CASEMGMT ---
Call back from Mally at [facility] and she states they can accept pt and do SOC 04/26/21, possibly earlier. Zack ORTIZ CM
== END 2021-04-22 13:37 | disposition home or self-care (01) ==
LOC: ED 13:48 → PCU 13:54
PROVIDERS: Internal Medicine Interventional Cardiology; Admitting Provider Internal Medicine; Emergency Provider Emergency Medicine; PCP Nurse Practitioner Family; Visit Provider Internal Medicine
DX: U07.1 COVID-19 (principal); E11.51 Type 2 diabetes mellitus with diabetic peripheral angiopathy without gangrene; I11.0 Hypertensive heart disease with heart failure; I50.22 Chronic systolic (congestive) heart failure; E11.40 Type 2 diabetes mellitus with diabetic neuropathy, unspecified; I48.0 Paroxysmal atrial fibrillation; I48.92 Unspecified atrial flutter; Z68.41 Body mass index [BMI] 40.0-44.9, adult; Z79.4 Long term (current) use of insulin; I25.10 Atherosclerotic heart disease of native coronary artery without angina pectoris; E66.9 Obesity, unspecified; I25.5 Ischemic cardiomyopathy; Z79.01 Long term (current) use of anticoagulants; E78.5 Hyperlipidemia, unspecified; G25.81 Restless legs syndrome; D64.9 Anemia, unspecified; I25.2 Old myocardial infarction; G47.33 Obstructive sleep apnea (adult) (pediatric); R94.31 Abnormal electrocardiogram [ECG] [EKG]; Z79.02 Long term (current) use of antithrombotics/antiplatelets; Z95.810 Presence of automatic (implantable) cardiac defibrillator; Z79.82 Long term (current) use of aspirin; Z87.891 Personal history of nicotine dependence; Z79.899 Other long term (current) drug therapy; Z95.5 Presence of coronary angioplasty implant and graft
CPT/HCPCS: 36415; 71045; 80048; 80053; 80061; 82962; 83036; 83735; 84100; 84443; 84484; 85025; 85610; 85730; 93005; 93308; 94640; 96365; 96366; 96375; 97166; 99218; 99251; 99285; J7030; A4216; G0378; G0463; J2405

== ENCOUNTER 2021-04-29 15:03 | Outpatient (CLI) | payer MEDICARE, OTHER, SELFPAY ==
[2017-11-06 10:25] VITALS: BMI 37.2
[2021-04-29 16:23] LABS: BNP,B-Type NATRIURETIC PEPTIDE 69.9 pg/mL (0-100)
[2021-04-29 16:24] LABS: Anion Gap 4 (5-15); BUN 23 mg/dL (7-18); Calcium,Total 8.9 mg/dL (8.5-10.1); Chloride 104 mmol/L (98-107); Creatinine, Serum 1.21 mg/dL (0.70-1.30); EST Glomerular Filtration Rate 62 mL/min (>60); Est Glom Filt Rate - Afr Amer 75 mL/min (>60); Glucose 98 mg/dL (74-106); Potassium 3.6 mmol/L (3.5-5.1); Sodium Level 140 mmol/L (136-145)
== END 2021-04-29 23:59 | disposition short-term general hospital (02) ==
LOC: LAB 15:05
PROVIDERS: PCP Nurse Practitioner Family; Referring Provider Nurse Practitioner Family; Visit Provider Nurse Practitioner Family
DX: R06.00 Dyspnea, unspecified (principal); I50.20 Unspecified systolic (congestive) heart failure; I11.0 Hypertensive heart disease with heart failure; I48.92 Unspecified atrial flutter; I47.2 Ventricular tachycardia; I25.5 Ischemic cardiomyopathy; E78.5 Hyperlipidemia, unspecified
CPT/HCPCS: 36415; 80048; 83880

== ENCOUNTER 2021-05-08 06:28 | Outpatient (CLI) | payer MEDICARE, OTHER, SELFPAY ==
[2017-11-06 10:25] VITALS: BMI 37.2
--- NOTE | 2021-05-08 18:52 | STRESSREP ---
Stress Test Report Pharmacologic myocardial perfusion stress test. 75-year-old man with a history of ischemic cardiomyopathy status post ICD implantation. Known coronary artery disease. Stress protocol: Resting EKG demonstrates normal sinus rhythm with a rate of 76 bpm previous inferior infarct is noted. 0.4 mg of regadenoson was infused per usual protocol followed by rapid intravenous saline flush injection continuous EKG monitoring was performed. The maximum heart rate attained was 86 bpm which was 59% of max impact at heart rate the maximum workload was one metabolic equivalent. At rest and during peak infusion nonspecific ST changes were noted with did not meet the criteria for ischemia. No clinical angina was noted. The peak blood pressure was 126/70 mmHg. Myocardial perfusion protocol. 14.9 mCi of technetium 99m sestamibi was injected at rest. 0.4 mg of regadenoson was infused per usual protocol. At peak infusion 44.9 mCi of technetium 99m sestamibi was injected stress images were obtained stress and rest images were reconstructed and compared in the short axis vertical long and horizontal long axis. Gated images were also obtained. Perfusion SPECT analysis: Review of the stress images demonstrated dilated cardiac silhouette size. There is a small defect noted in the apex and a large defect noted involving the entire inferior wall. The resting images demonstrate a similar pattern. The anterior wall lateral wall and septum appear to be well perfused. The above is suggestive of a previous apical infarct as well as an extensive inferior infarct. No areas of improvement are noted to suggest reversibility or ischemia. Gated SPECT analysis: The gated ejection fraction is 38%. Conclusion: Ischemic cardiomyopathy. Previous extensive inferior infarct and apical infarct No ischemia noted
== END 2021-05-08 23:59 | disposition home or self-care (01) ==
LOC: CVS 06:29
PROVIDERS: PCP Nurse Practitioner Family; Referring Provider Nurse Practitioner Family; Visit Provider Nurse Practitioner Family
DX: R07.9 Chest pain, unspecified (principal); I25.118 Atherosclerotic heart disease of native coronary artery with other forms of angina pectoris; Z95.5 Presence of coronary angioplasty implant and graft; I25.5 Ischemic cardiomyopathy; I10 Essential (primary) hypertension; E78.5 Hyperlipidemia, unspecified; R06.00 Dyspnea, unspecified
CPT/HCPCS: 78452; 93017; A9500; A4216; J2785

== ENCOUNTER → 2021-07-23 | Outpatient (CLI) | payer MEDICARE, OTHER, SELFPAY ==
[2017-11-06 10:25] VITALS: BMI 37.2
[2021-07-23 16:23] LABS: Absolute Lymphocyte Count 1.12 X10^3/uL (0.83-4.51); Absolute Neutrophil Count 6.3 X10^3/uL (2.0-7.7); Basophil# 0.04 X10^3/uL; Basophil% 0.5 % (0-1); Eosinophil# 0.31 X10^3/uL; Eosinophils% 3.6 % (0-5); Hematocrit 35.2 % (40-54); Hemoglobin 10.3 g/dL (13.0-16.5); Lymphocyte # 1.12 X10^3/ul (0.83-4.51); Lymphocyte % 12.9 % (19-41); Mean Corp Hgb Conc 29.3 g/dL (32-36); Mean Corpuscular Hgb 22.8 pg (27.0-32.0); Mean Corpuscular Volume 77.9 fL (80-94); Mean Platelet Vol. 9.1 fl (6.2-12.0); Monocyte# 0.74 X10^3/uL; Monocyte% 8.5 % (0-10); NRBC Flagged by Analyzer 0 % (0-5); Neutrophil # 6.33 X10^3/uL (2.7-7.7); Neutrophil % 73.1 % (47-70); Platelet Count 197 K/mm3 (150-450); RBC Distribution Width CV 17.2 % (11.6-14.6); Red Blood Count 4.52 M/mm3 (4.6-6.2); White Blood Count 8.7 K/mm3 (4.4-11.0)
[2021-07-23 16:29] LABS: International Normalized Ratio 2.3; Prothrombin Time (Protime)PT. 24.9 SECONDS (11.7-14.9)
[2021-07-23 16:45] LABS: ALB/GLOB Ratio 0.9 RATIO (0.9-2.4); AST(SGOT) 52 U/L (15-37); Alanine Aminotransfer ALT/SGPT 72 U/L (16-61); Albumin, Serum 3.4 g/dL (3.2-5.0); Alkaline Phosphatase 92 U/L (45-117); Anion Gap 4 (5-15); BUN 25 mg/dL (7-18); BUN/Creat Ratio 19.5 RATIO (10-20); Calcium,Total 8.7 mg/dL (8.5-10.1); Chloride 106 mmol/L (98-107); Creatinine, Serum 1.28 mg/dL (0.70-1.30); EST Glomerular Filtration Rate 58 mL/min (>60); Est Glom Filt Rate - Afr Amer 70 mL/min (>60); Globulin 3.7 g/dL (2.2-4.2); Glucose 149 mg/dL (74-106); Potassium 4.2 mmol/L (3.5-5.1); Protein, Total 7.1 g/dL (6.4-8.2); Sodium Level 140 mmol/L (136-145)
== END | disposition home or self-care (01) ==
LOC: LAB 15:42
PROVIDERS: PCP Nurse Practitioner Family; Visit Provider Physician Assistant Medical
DX: I47.2 Ventricular tachycardia (principal); I25.10 Atherosclerotic heart disease of native coronary artery without angina pectoris; I25.5 Ischemic cardiomyopathy
CPT/HCPCS: 36415; 80053; 85025; 85610

== ENCOUNTER → 2021-12-10 | Outpatient (CLI) | payer MEDICARE, OTHER, SELFPAY ==
[2017-11-06 10:25] VITALS: BMI 37.2
--- NOTE | 2021-12-10 11:29 | RAD_ITS ---
EXAM: XR CHEST, 2 VIEWS CLINICAL INDICATION: SOB TECHNIQUE: Frontal and lateral views of the chest. This report was created using [employer] report generation technology. COMPARISON: April 21, 2021 FINDINGS: LUNGS AND PLEURAL SPACES: Unremarkable. No consolidation or edema. No pneumothorax. No effusion. HEART: Unremarkable. Cardiac silhouette not enlarged. MEDIASTINUM: Central airways and mediastinal contour are unremarkable. BONES/JOINTS: Degenerative changes of the spine and acromioclavicular joints. Degenerative changes of the spine. SOFT TISSUES: Unremarkable. VASCULATURE: Atherosclerotic calcifications of the nonenlarged thoracic aortic arc. TUBES, LINES AND DEVICES: Left-sided AICD/pacer with intact wires. RAD/Chest PA and Lateral IMPRESSION: No acute disease. Electronically Signed: Derik Estrada MD at 17:07 EDT ,
[2021-12-10 12:00] LABS: Absolute Lymphocyte Count 0.77 X10^3/uL (0.83-4.51); Basophil# 0.06 X10^3/uL; Basophil% 1.1 % (0-1); Eosinophil# 0.15 X10^3/uL; Eosinophils% 2.7 % (0-5); Hematocrit 32.7 % (40-54); Hemoglobin 9.6 g/dL (13.0-16.5); Lymphocyte # 0.77 X10^3/ul (0.83-4.51); Lymphocyte % 13.8 % (19-41); Mean Corp Hgb Conc 29.4 g/dL (32-36); Mean Corpuscular Volume 78.4 fL (80-94); Mean Platelet Vol. 9.6 fl (6.2-12.0); Monocyte# 0.56 X10^3/uL; Monocyte% 10.1 % (0-10); NRBC Flagged by Analyzer 0 % (0-5); Neutrophil % 71.8 % (47-70); Platelet Count 174 K/mm3 (150-450); RBC Distribution Width CV 16.6 % (11.6-14.6); RBC Distribution Width SD 47.5 fl (35.1-43.9); Red Blood Count 4.17 M/mm3 (4.6-6.2); White Blood Count 5.6 K/mm3 (4.4-11.0)
[2021-12-10 12:22] LABS: BNP,B-Type NATRIURETIC PEPTIDE 29.3 pg/mL (0-100)
[2021-12-10 12:24] LABS: ALB/GLOB Ratio 0.8 RATIO (0.9-2.4); AST(SGOT) 79 U/L (15-37); Alanine Aminotransfer ALT/SGPT 72 U/L (16-61); Albumin, Serum 3.4 g/dL (3.2-5.0); Alkaline Phosphatase 86 U/L (45-117); Anion Gap 8 (5-15); BUN 34 mg/dL (7-18); BUN/Creat Ratio 17.4 RATIO (10-20); Calcium,Total 9.2 mg/dL (8.5-10.1); Chloride 99 mmol/L (98-107); Creatinine, Serum 1.95 mg/dL (0.70-1.30); EST Glomerular Filtration Rate 36 mL/min (>60); Est Glom Filt Rate - Afr Amer 43 mL/min (>60); Glucose 292 mg/dL (74-106); Potassium 5.1 mmol/L (3.5-5.1); Protein, Total 7.4 g/dL (6.4-8.2); Sodium Level 136 mmol/L (136-145)
== END | disposition home or self-care (01) ==
LOC: RAD 11:22
PROVIDERS: PCP Family Medicine; Referring Provider Nurse Practitioner Family; Visit Provider Nurse Practitioner Family
DX: R06.00 Dyspnea, unspecified (principal); E78.5 Hyperlipidemia, unspecified; I25.10 Atherosclerotic heart disease of native coronary artery without angina pectoris
CPT/HCPCS: 36415; 71046; 80053; 83880; 85025

== ENCOUNTER 2022-03-05 20:04 | Emergency (ER) | payer MEDICARE, OTHER, SELFPAY ==
[2017-11-06 10:25] VITALS: BMI 37.2
[2022-03-05 20:05] VITALS: PULSE 72; RESP 18; TEMP 36.7; O2SAT 100; BMI 54.3
--- NOTE | 2022-03-05 20:07 | EKG12_ITS ---
Test Reason : CP Blood Pressure : / mmHG Vent. Rate : 070 BPM Atrial Rate : 070 BPM P-R Int : 228 ms QRS Dur : 110 ms QT Int : 456 ms P-R-T Axes : 046 -57 111 degrees QTc Int : 492 ms Sinus rhythm with 1st degree A-V block Left axis deviation Low voltage QRS Abnormal ECG Confirmed by NGA SIMMONS, KADIE ([id number]), film and video editor SABINE ALVAREZ ([id number]) on 03/11/2022 10:33:56 AM Referred By: [place] Confirmed By:TORSTEN SYLVESTER MD
[2022-03-05 20:08] VITALS: O2SAT 98
--- NOTE | 2022-03-05 20:20 | RAD_ITS ---
STUDY: X-RAY CHEST REASON FOR EXAM: Male, 76 years old. chest pain TECHNIQUE: AP portable COMPARISON: 12/10/2021 FINDINGS: Elevated right hemidiaphragm and mild discoid atelectasis at the right base.. There is no demonstrated pleural abnormality. Normal size heart. Normal mediastinum and eleuterio. Normal visualized pulmonary arteries. Mildly calcified aortic arch and descending thoracic aorta. AICD noted on the left with electrode in right ventricle Normal visualized thoracic spine. Normal visualized ribs, clavicles, and shoulders. There is no demonstrated abnormality of the visualized soft tissue structures of the upper abdomen. RAD/Chest 1 View (Portable) IMPRESSION: Elevated right hemidiaphragm and minor discoid atelectasis in right lower lobe. Electronically Signed: Alex Mackey MD at 20:57 EST ,
[2022-03-05 20:47] LABS: Absolute Lymphocyte Count 0.83 X10^3/uL (0.83-4.51); Absolute Neutrophil Count 4.6 X10^3/uL (2.0-7.7); Basophil# 0.06 X10^3/uL; Eosinophil# 0.17 X10^3/uL; Eosinophils% 2.7 % (0-5); Hematocrit 29.4 % (40-54); Hemoglobin 8.3 g/dL (13.0-16.5); Lymphocyte # 0.83 X10^3/ul (0.83-4.51); Lymphocyte % 13.2 % (19-41); Mean Corp Hgb Conc 28.2 g/dL (32-36); Mean Corpuscular Hgb 20.9 pg (27.0-32.0); Mean Corpuscular Volume 74.1 fL (80-94); Mean Platelet Vol. 9.5 fl (6.2-12.0); Monocyte# 0.65 X10^3/uL; Monocyte% 10.3 % (0-10); NRBC Flagged by Analyzer 0 % (0-5); Neutrophil # 4.56 X10^3/uL (2.7-7.7); Neutrophil % 72.5 % (47-70); Platelet Count 174 K/mm3 (150-450); RBC Distribution Width CV 17.6 % (11.6-14.6); RBC Distribution Width SD 46.6 fl (35.1-43.9); Red Blood Count 3.97 M/mm3 (4.6-6.2); White Blood Count 6.3 K/mm3 (4.4-11.0)
[2022-03-05 21:19] LABS: Anion Gap 6 (5-15); BUN 24 mg/dL (7-18); BUN/Creat Ratio 13.4 RATIO (10-20); Calcium,Total 8.6 mg/dL (8.5-10.1); Chloride 106 mmol/L (98-107); Creatinine, Serum 1.79 mg/dL (0.70-1.30); EST Glomerular Filtration Rate 39 mL/min (>60); Est Glom Filt Rate - Afr Amer 48 mL/min (>60); Estimated Creatinine Clearance 24.83 ml/min; Glucose 116 mg/dL (74-106); Potassium 3.5 mmol/L (3.5-5.1); Sodium Level 141 mmol/L (136-145)
[2022-03-05 21:23] LABS: Troponin-I HS 29 pg/mL (3.0-78.0)
--- NOTE | 2022-03-05 21:55 | EDS_ITS ---
HPI History of Present Illness Chief Complaint: Chest Pain Informant: patient and family Narrative Narrative: Intermittent chest pain sharp in nature last 2 weeks. Symptoms would last 15 seconds. States would have dyspnea and nausea with this. No radicular symp toms. No sweats. History of paroxysmal A. fib on warfarin. History of coronary disease last stent 10 years ago followed by Dr. Perry. History of CHF. He takes Lasix 20 mg 4 times a day. States increasing leg swelling. No orthopnea. Last 2 days mild cough nonproductive no fevers. History of hypertension, diabetes, hyperlipidemia. He is on aspirin and Plavix. Took his dosing today. Currently asymptomatic. 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 HFrEF (heart failure with reduced ejection fraction) History of deep vein thrombosis (DVT) of lower extremity History of non-ST elevation myocardial infarction (NSTEMI) (11/05/16) Hyperlipidemia Ischemic cardiomyopathy Localized edema Nondisp fracture of fifth left metatarsal bone with routine healing Nonrheumatic tricuspid (valve) insufficiency Nonsustained ventricular tachycardia Normocytic anemia Obesity 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 Other specified peripheral vascular diseases Paroxysmal atrial flutter Peripheral vascular occlusive disease Type 2 diabetes mellitus Ulcer of left lower extremity with fat layer exposed Ulcer of right lower extremity Ulcer of right lower extremity with fat layer exposed Ulcer of right lower extremity with fat layer exposed Walking difficulty due to ankle and foot Xerosis cutis Home Medications clopidogrel 75 mg tablet 75 mg PO DAILY anti platelet 12/04/14 [History Last Taken 04/21/21] aspirin 81 mg tablet,delayed release 81 mg PO DAILY@0800 heart health 11/17/18 [History Last Taken 04/21/21] latanoprost 0.005 % eye drops 1 drp EACH EYE TID glaucoma 11/17/18 [History Last Taken 04/20/21] colestipol 1 gram tablet 1 g PO BID cholesterol 12/02/18 [History Last Taken 04/21/21] fenofibrate nanocrystallized 145 mg tablet 145 mg PO DAILY elevated triglycerides 12/02/18 [History Last Taken 04/21/21] gabapentin 300 mg capsule 900 mg PO TID RLS 10/27/19 [History Last Taken 04/21/21] lisinopril 20 mg tablet 20 mg PO DAILY blood pressure 06/06/20 [History Last Taken 04/21/21] nitroglycerin 0.4 mg sublingual tablet 0.4 mg sublingual Q5M PRN Chest Pain #25 tabs 10/08/20 [Rx Last Taken Unknown] dulaglutide 3 mg/0.5 mL subcutaneous pen injector (Trulicity) 3 mg subcut QWEEK diabetes 04/21/21 [History Last Taken 04/14/21] fluoxetine 20 mg tablet 20 mg PO DAILY mood 04/21/21 [History Last Taken 04/21/21] nortriptyline 25 mg capsule 25 mg PO QHS 04/21/21 [History Last Taken 04/20/21] pantoprazole 40 mg tablet,delayed release 40 mg PO DAILY stomach pill #90 tabs 05/14/21 [Rx Last Taken Unknown] rosuvastatin 40 mg tablet 40 mg PO QHS Cholesterol #90 tabs 07/08/21 [Rx Last Taken Unknown] spironolactone 25 mg tablet 25 mg PO DAILY diuretic #90 tabs 07/30/21 [Rx Last Taken Unknown] warfarin 3 mg tablet 3 mg PO QMWF blood thinner 09/11/21 [History Last Taken Unknown] warfarin 6 mg tablet 6 mg PO QTUTHSA 09/11/21 [History Last Taken Unknown] isosorbide mononitrate 60 mg tablet,extended release 24 hr 60 mg PO BID heart #180 tabs 11/14/21 [Rx Last Taken Unknown] furosemide 40 mg tablet 80 mg PO BID diuretic #360 tabs 11/29/21 [Rx Last Taken Unknown] albuterol sulfate 90 mcg/actuation aerosol inhaler 2 puff inhalation Q4H PRN diabetes 12/10/21 [History Last Taken Unknown] insulin glargine 100 unit/mL (3 mL) subcutaneous pen (Basaglar KwikPen U-100 Insulin) 33 unit subcut BID 12/10/21 [History Last Taken Unknown] insulin lispro 100 unit/mL subcutaneous solution 23 unit subcut TIDCM diabetes 12/10/21 [History Last Taken Unknown] omega-3-dha 120 mg-epa 180 mg-fish oil-vitamin D3 1,000 unit capsule 1 cap PO DAILY 12/10/21 [History Last Taken Unknown] ropinirole 0.5 mg tablet 1 mg PO QHS legs 12/10/21 [History Last Taken Unknown] dapagliflozin 10 mg tablet (Farxiga) 10 mg PO DAILY ordered by PCP 12/23/21 [History Last Taken Unknown] carvedilol 6.25 mg tablet 6.25 mg PO BID #180 tabs 01/08/22 [Rx Last Taken Unknown] amiodarone 200 mg tablet 200 mg PO DAILY aflutter #90 tabs 01/20/22 [Rx Last Taken Unknown] Allergy/AdvReac Type Severity Reaction Status Date / Time ceftriaxone sodium Allergy Rash Verified 03/05/22 20:07 [From Rocephin] milk AdvReac Diarrhea Verified 03/05/22 20:07 morphine AdvReac hallucinati Verified 03/05/22 20:07 ons Family History Father , Age 78 Prostate cancer Mother , Age 80 CVA (cerebral vascular accident) Sister Congestive heart failure Diabetes Hypertension Hyperlipidemia Atrial fibrillation CAD (coronary artery disease) Cardiac defibrillator in situ Sister Breast cancer Sister Breast cancer Brother CAD (coronary artery disease) Myocardial infarction Diabetes Brother Diabetes Brother , Age 74 COPD (chronic obstructive pulmonary disease) Sister Alive and well Surgical History H/O colonoscopy with polypectomy (11/2017) History of angioplasty of peripheral vessel History of coronary artery stent placement (12/15/14) History of detached retina repair History of electrophysiologic study (11/23/02) History of implantable cardiac defibrillator (ICD) (11/19/17) History of left heart catheterization (12/06/18) History of radiofrequency ablation procedure for cardiac arrhythmia (07/01/11) ICD (implantable cardioverter-defibrillator) in place Social History household members: spouse housing: house current occupational status: retired pets and animals: Yes (2 dogs, 2 cats) Smoking Status: Former smoker pack-years: 20 how long ago did patient quit smokin years ago alcohol intake: never caffeine: Yes Type: coffee Number of servings: 1 ROS ROS ED Constitutional Constitutional ED: Denies chills, fever(s) or sweats Eyes Eyes: Denies change in vision ENT ENT ED: Denies dysphagia or sore throat Cardiovascular Cardiovascular: Reports chest pain; Denies leg edema, palpitations or racing heartbeat Respiratory/Chest Respiratory/Chest: Reports cough; Denies dyspnea or dyspnea on exertion Gastrointestinal Gastrointestinal: Denies abdominal pain, diarrhea, nausea or vomiting Genitourinary Genitourinary ED: Denies dysuria, hematuria or urinary frequency Musculoskeletal Musculoskeletal: Denies back pain, extremity pain or neck pain Integumentary Denies rash or wounds Neurologic Neurologic: Denies headache(s), paresthesias or weakness EXAM Physical Exam Const Vital Signs: 03/05/22 20:05 03/05/22 20:08 03/05/22 20:45 Temperature 98.0 F Temperature Source Temporal Pulse Rate 72 Respiratory Rate 18 Respiratory Effort Non-Labored Blood Pressure Blood Pressure Mean Pulse Ox 100 98 Oxygen Delivery Method Room Air Room Air 03/05/22 22:04 Temperature Temperature Source Pulse Rate 70 Respiratory Rate 15 Respiratory Effort Blood Pressure 124/82 H Blood Pressure Mean 96 Pulse Ox 96 Oxygen Delivery Method Room Air Positive well nourished and well developed General Appearance ED: well developed and NAD HEENT Reports moist mucous membranes normocephalic and atraumatic Eyes PERRL, EOMs intact bilaterally and conjunctivae normal General Eye ED: Yes normal appearance of both eyes Neck no lymphadenopathy and supple General: Negative for tenderness Chest Wall Chest: Negative for tenderness Resp normal respiratory effort and normal air movement Effort and Inspection: symmetric chest movement; Negative for respiratory distress Cardio regular rate, regular rhythm and no murmurs Peripheral Pulses: pulses 2+ throughout GI normal to inspection, nondistended, normoactive bowel sounds and non-tender Palpation: Negative for guarding or rebound tenderness present Back/Spine no CVA tenderness and no thoracic nor lumbar tenderness Extremity normal to inspection Extremity Narrative: 1+ lower extremity edema. General Extremety ED: Yes edema; Negative for tenderness General Extremity: edema Neuro oriented x3 and no sensory deficits noted Sensorium / Orientation: awake and alert Skin no rashes or lesions noted and no wounds MDM MDM MDM Narrative Medical decision making narrative: Patient intermittent chest pain asymptomatic on evaluation. EKG chronic findings. 1 view chest x-ray reviewed by myself read by radiologist elevated right hemidiaphragm, no infiltrates. Labs anemia hemoglobin 8.3 last hemoglobin was 9. Creatinine 1.79 down from 1.9 previously. Initial troponin 29. Will obtain 2-hour troponin for reevaluation for disposition. 2350: Repeat troponin negative. Patient INR therapeutic 2.6. With his anemia I discussed rectal bleeding he states a week ago had blood in the stools however none since. Discussed monitor for increasing bleeding. He is symptom-free on reevaluation. 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 All questions were answered. Lab Data Attestation: I reviewed the patient's lab results. Labs: Laboratory Results - last 24 hr 03/05/22 03/05/22 03/05/22 20:40 20:40 20:40 WBC 6.3 RBC 3.97 L Hgb 8.3 L Hct 29.4 L MCV 74.1 L MCH 20.9 L MCHC 28.2 L RDW Std Deviation 46.6 H RDW Coeff of Galo 17.6 H Plt Count 174 MPV 9.5 Immature Gran % (Auto) 0.300 Neut % (Auto) 72.5 H Lymph % (Auto) 13.2 L Gilliam % (Auto) 10.3 H Eos % (Auto) 2.7 Baso % (Auto) 1.0 Absolute Neuts (auto) 4.6 Absolute Lymphs (auto) 0.83 Nucleated RBC % 0 PT INR Sodium 141 Potassium 3.5 Chloride 106 Carbon Dioxide 29.0 Anion Gap 6 BUN 24 H Creatinine 1.79 H Estim Creat Clear Calc 24.83 Est GFR (MDRD) Af Amer 48 L Est GFR (MDRD) Non-Af 39 L BUN/Creatinine Ratio 13.4 Glucose 116 H Calcium 8.6 Troponin I High Sens 29 03/05/22 03/05/22 22:23 23:10 WBC RBC Hgb Hct MCV MCH MCHC RDW Std Deviation RDW Coeff of Galo Plt Count MPV Immature Gran % (Auto) Neut % (Auto) Lymph % (Auto) Gilliam % (Auto) Eos % (Auto) Baso % (Auto) Absolute Neuts (auto) Absolute Lymphs (auto) Nucleated RBC % PT 27.1 H INR 2.6 Sodium Potassium Chloride Carbon Dioxide Anion Gap BUN Creatinine Estim Creat Clear Calc Est GFR (MDRD) Af Amer Est GFR (MDRD) Non-Af BUN/Creatinine Ratio Glucose Calcium Troponin I High Sens 28 Radiography Diagnostic Testing: Clinical Impression(s) from Imaging Studies Chest X-Ray 03/05/22 20:20 IMPRESSION: Elevated right hemidiaphragm and minor discoid atelectasis in right lower lobe. Electronically Signed: Alex Mackey MD at 20:57 EST , EKG Initial EKG: Attestation: I personally reviewed and interpreted this EKG as follows: Comments: Sinus rate of 70, first-degree AV block. No ST or T wave changes. Interventricular delay QRS of 110. Similar EKG compared to March 2021. Discharge Plan Triage Chief Complaint: Chest Pain ED Provider: David Schmitt Dx/Rx/DC Orders Clinical Impression: CAD (coronary artery disease), Chest pain, Anemia, CKD (chronic kidney disease) Instructions: Anemia, CKD Dc, ED Chest Pain, Uncertain Cause Prescriptions: No Action gabapentin 300 mg capsule 900 mg PO TID lisinopril 20 mg tablet 20 mg PO DAILY Hold Instructions: Hypotension Label Comments: blood pressure warfarin 3 mg tablet 3 mg PO QMWF Rx Instructions: Managed by PCP warfarin 6 mg tablet 6 mg PO QTUTHSA Rx Instructions: Managed by PCP Goran Bender U-100 Insulin 100 unit/mL (3 mL) insulin pen 33 unit subcut BID albuterol sulfate 90 mcg/actuation HFA aerosol inhaler 2 puff inhalation Q4H PRN (Reason: diabetes) [id number] oil-vit D3 120 mg-180 mg -1,000 unit capsule 1 cap PO DAILY clopidogrel 75 MG tablet 75 mg PO DAILY Label Comments: blood thinner insulin lispro 100 unit/mL solution 23 unit subcut TIDCM Label Comments: diabetes Rx Instructions: plus sliding scale latanoprost 2.5 ML drops 1 drp EACH EYE TID Label Comments: INSTILL 1 DROP INTO EACH EYE AT BEDTIME aspirin 81 MG tablet 81 mg PO DAILY@0800 colestipol 1 GM tablet 1 g PO BID fenofibrate nanocrystallized 145 MG tablet 145 mg PO DAILY ropinirole 0.5 mg tablet 1 mg PO QHS nortriptyline 25 mg Capsule 25 mg PO QHS fluoxetine 20 mg Tablet 20 mg PO DAILY Trulicity 3 mg/0.5 mL Pen Injector 3 mg SUBCUT QWEEK Rx Instructions: takes on Thursday nitroglycerin 0.4 mg tablet, sublingual 0.4 mg SL Q5M PRN (Reason: Chest Pain) Qty: 25 3RF pantoprazole 40 mg tablet,delayed release (DR/EC) 40 mg PO DAILY Qty: 90 3RF rosuvastatin 40 mg tablet 40 mg PO QHS Qty: 90 3RF spironolactone 25 mg tablet 25 mg PO DAILY Qty: 90 4RF isosorbide mononitrate 60 mg tablet extended release 24 hr 60 mg PO BID Qty: 180 3RF furosemide 40 mg tablet 80 mg PO BID Qty: 360 3RF Farxiga 10 mg tablet 10 mg PO DAILY carvedilol 6.25 mg tablet 6.25 mg PO BID Qty: 180 3RF Rx Instructions: must administer with a meal/food amiodarone 200 mg tablet 200 mg PO DAILY Qty: 90 3RF Primary Care Provider: Tomás Patino Referrals: Johan Perry MD [Med Staff - Active Staff] - 3-5 Days Tomás Patino MD [Primary Care Provider] - Activity Restrictions/Additional Instructions: Your cardiac work-up negative today your x-ray is negative. Your creatinine 1.79 today. Your hemoglobin 8.3 today. Previous was 9.6. Monitor for rectal bleeding. INR therapeutic at 2.6. Follow-up with your doctors return if any worsening symptoms. Disposition Disposition: Home, Self Care
[2022-03-05 22:04] VITALS: BP 124/82; PULSE 70; RESP 15; O2SAT 96
[2022-03-05 22:38] LABS: International Normalized Ratio 2.6; Prothrombin Time (Protime)PT. 27.1 SECONDS (11.7-14.9)
[2022-03-05 23:38] LABS: Troponin-I HS 28 pg/mL (3.0-78.0)
[2022-03-06 00:13] VITALS: BP 133/90; PULSE 71; RESP 16; O2SAT 95
== END 2022-03-06 00:14 | disposition home or self-care (01) ==
PROVIDERS: Emergency Provider Emergency Medicine; PCP Family Medicine; Visit Provider Emergency Medicine
DX: I25.10 Atherosclerotic heart disease of native coronary artery without angina pectoris (principal); E11.51 Type 2 diabetes mellitus with diabetic peripheral angiopathy without gangrene; I50.20 Unspecified systolic (congestive) heart failure; I13.0 Hypertensive heart and chronic kidney disease with heart failure and stage 1 through stage 4 chronic kidney disease, or unspecified chronic kidney disease; E11.22 Type 2 diabetes mellitus with diabetic chronic kidney disease; R07.9 Chest pain, unspecified; N18.9 Chronic kidney disease, unspecified; E78.5 Hyperlipidemia, unspecified; D64.9 Anemia, unspecified; Z87.891 Personal history of nicotine dependence
CPT/HCPCS: 71045; 80048; 84484; 85025; 85610; 93005; 99283; A4216

== ENCOUNTER → 2022-03-11 | Outpatient (CLI) | payer MEDICARE, OTHER, SELFPAY ==
[2017-11-06 10:25] VITALS: BMI 37.2
[2022-03-11 15:36] LABS: PSA,Total - Annual Screen 3.89 ng/mL (0.00-4.00)
== END | disposition home or self-care (01) ==
PROVIDERS: PCP Family Medicine; Visit Provider Urology
DX: Z12.5 Encounter for screening for malignant neoplasm of prostate (principal)
CPT/HCPCS: 36415; 84153; G0103

== ENCOUNTER 2022-03-16 14:30 | Inpatient (IN) | payer MEDICARE, OTHER, SELFPAY ==
[2017-11-06 10:25] VITALS: BMI 37.2
[2022-03-16] VITALS (8 sets, daily range): BP systolic 112–136; BP diastolic 53–75; PULSE 63–77; RESP 16–20; TEMP 35.8–36.6; O2SAT 97–100; BMI 44.5; BMI 44.4
--- NOTE | 2022-03-16 15:22 | EKG12_ITS ---
Test Reason : SOB Blood Pressure : / mmHG Vent. Rate : 064 BPM Atrial Rate : 064 BPM P-R Int : 166 ms QRS Dur : 144 ms QT Int : 232 ms P-R-T Axes : 074 -37 000 degrees QTc Int : 239 ms Sinus rhythm with Fusion complexes Left axis deviation Non-specific intra-ventricular conduction block Anterolateral infarct , age undetermined Abnormal ECG Confirmed by CA SIMMONS, ROBERT ([id number]), magazine editor SABINE ALVAREZ ([id number]) on 03/17/2022 12:55:03 PM Referred By: Confirmed By:ROBERT PENALOZA MD
--- NOTE | 2022-03-16 15:30 | EX.ED.DYSGE1 ---
HPI History of Present Illness Chief Complaint: Shortness of Breath Narrative Narrative: 76-year-old male presenting with shortness of breath. Shortness of breath is worsened with exertion. He states he has gained 15 pounds in the last 2 days. He went to urgent care and they advised him to come to the ED for further evaluation. History of congestive heart failure. His Lasix was increased 2 weeks ago from 40mg twice a day to 60mg twice a day. He has had no improvement with this change. Denies fever or other complaints. 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 HFrEF (heart failure with reduced ejection fraction) History of deep vein thrombosis (DVT) of lower extremity History of non-ST elevation myocardial infarction (NSTEMI) (11/05/16) Hyperlipidemia Ischemic cardiomyopathy Localized edema Nondisp fracture of fifth left metatarsal bone with routine healing Nonrheumatic tricuspid (valve) insufficiency Nonsustained ventricular tachycardia Normocytic anemia Obesity 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 Other specified peripheral vascular diseases Paroxysmal atrial flutter Peripheral vascular occlusive disease Type 2 diabetes mellitus Ulcer of left lower extremity with fat layer exposed Ulcer of right lower extremity Ulcer of right lower extremity with fat layer exposed Ulcer of right lower extremity with fat layer exposed Walking difficulty due to ankle and foot Xerosis cutis Home Medications clopidogrel 75 mg tablet 75 mg PO DAILY anti platelet 12/04/14 [History Last Taken 04/21/21] aspirin 81 mg tablet,delayed release 81 mg PO DAILY@0800 heart health 11/17/18 [History Last Taken 04/21/21] latanoprost 0.005 % eye drops 1 drp EACH EYE TID glaucoma 11/17/18 [History Last Taken 04/20/21] colestipol 1 gram tablet 1 g PO BID cholesterol 12/02/18 [History Last Taken 04/21/21] fenofibrate nanocrystallized 145 mg tablet 145 mg PO DAILY elevated triglycerides 12/02/18 [History Last Taken 04/21/21] gabapentin 300 mg capsule 900 mg PO TID RLS 10/27/19 [History Last Taken 04/21/21] lisinopril 20 mg tablet 20 mg PO DAILY blood pressure 06/06/20 [History Last Taken 04/21/21] nitroglycerin 0.4 mg sublingual tablet 0.4 mg sublingual Q5M PRN Chest Pain #25 tabs 10/08/20 [Rx Last Taken Unknown] dulaglutide 3 mg/0.5 mL subcutaneous pen injector (Trulicity) 3 mg subcut QWEEK diabetes 04/21/21 [History Last Taken 04/14/21] fluoxetine 20 mg tablet 20 mg PO DAILY mood 04/21/21 [History Last Taken 04/21/21] nortriptyline 25 mg capsule 25 mg PO QHS 04/21/21 [History Last Taken 04/20/21] pantoprazole 40 mg tablet,delayed release 40 mg PO DAILY stomach pill #90 tabs 05/14/21 [Rx Last Taken Unknown] rosuvastatin 40 mg tablet 40 mg PO QHS Cholesterol #90 tabs 07/08/21 [Rx Last Taken Unknown] spironolactone 25 mg tablet 25 mg PO DAILY diuretic #90 tabs 07/30/21 [Rx Last Taken Unknown] warfarin 3 mg tablet 3 mg PO QMWF blood thinner 09/11/21 [History Last Taken Unknown] warfarin 6 mg tablet 6 mg PO QTUTHSA 09/11/21 [History Last Taken Unknown] isosorbide mononitrate 60 mg tablet,extended release 24 hr 60 mg PO BID heart #180 tabs 11/14/21 [Rx Last Taken Unknown] furosemide 40 mg tablet 80 mg PO BID diuretic #360 tabs 11/29/21 [Rx Last Taken Unknown] albuterol sulfate 90 mcg/actuation aerosol inhaler 2 puff inhalation Q4H PRN diabetes 12/10/21 [History Last Taken Unknown] insulin glargine 100 unit/mL (3 mL) subcutaneous pen (Basaglar KwikPen U-100 Insulin) 33 unit subcut BID 12/10/21 [History Last Taken Unknown] insulin lispro 100 unit/mL subcutaneous solution 23 unit subcut TIDCM diabetes 12/10/21 [History Last Taken Unknown] omega-3-dha 120 mg-epa 180 mg-fish oil-vitamin D3 1,000 unit capsule 1 cap PO DAILY 12/10/21 [History Last Taken Unknown] ropinirole 0.5 mg tablet 1 mg PO QHS legs 12/10/21 [History Last Taken Unknown] dapagliflozin 10 mg tablet (Farxiga) 5 mg PO DAILY ordered by PCP 12/23/21 [History Last Taken Unknown] carvedilol 6.25 mg tablet 6.25 mg PO BID #180 tabs 01/08/22 [Rx Last Taken Unknown] amiodarone 200 mg tablet 200 mg PO DAILY aflutter #90 tabs 01/20/22 [Rx Last Taken Unknown] famotidine 20 mg tablet 20 mg PO QHS 03/16/22 [History Last Taken Unknown] ondansetron 4 mg disintegrating tablet 4 mg PO Q6H PRN Nausea 03/16/22 [History Last Taken Unknown] Allergy/AdvReac Type Severity Reaction Status Date / Time ceftriaxone sodium Allergy Rash Verified 03/16/22 14:31 [From Rocephin] milk AdvReac Diarrhea Verified 03/16/22 14:31 morphine AdvReac hallucinati Verified 03/16/22 14:31 ons Family History Father , Age 78 Prostate cancer Mother , Age 80 CVA (cerebral vascular accident) Sister Congestive heart failure Diabetes Hypertension Hyperlipidemia Atrial fibrillation CAD (coronary artery disease) Cardiac defibrillator in situ Sister Breast cancer Sister Breast cancer Brother CAD (coronary artery disease) Myocardial infarction Diabetes Brother Diabetes Brother , Age 74 COPD (chronic obstructive pulmonary disease) Sister Alive and well Surgical History H/O colonoscopy with polypectomy (11/2017) History of angioplasty of peripheral vessel History of coronary artery stent placement (12/15/14) History of detached retina repair History of electrophysiologic study (11/23/02) History of implantable cardiac defibrillator (ICD) (11/19/17) History of left heart catheterization (12/06/18) History of radiofrequency ablation procedure for cardiac arrhythmia (07/01/11) ICD (implantable cardioverter-defibrillator) in place Social History household members: spouse housing: house current occupational status: retired pets and animals: Yes (2 dogs, 2 cats) Smoking Status: Former smoker pack-years: 20 how long ago did patient quit smokin years ago alcohol intake: never caffeine: Yes Type: coffee Number of servings: 1 ROS ROS ED Constitutional Constitutional ED: Denies fever(s) Eyes Eyes: Denies change in vision ENT ENT ED: Denies rhinorrhea or sore throat Cardiovascular Cardiovascular: Reports orthopnea; Denies chest pain or palpitations Respiratory/Chest Respiratory/Chest: Reports cough, dyspnea, dyspnea on exertion and orthopnea Gastrointestinal Gastrointestinal: Denies abdominal pain, diarrhea, nausea or vomiting Genitourinary Genitourinary ED: Denies dysuria Musculoskeletal Musculoskeletal: Denies myalgias Integumentary Denies rash Neurologic Neurologic: Denies headache(s) Psychiatric Psychiatric: Denies suicidal thoughts EXAM Physical Exam Const Vital Signs: 03/16/22 14:32 03/16/22 16:43 03/16/22 16:47 Temperature 96.5 F L Temperature Source Temporal Pulse Rate 71 63 Respiratory Rate 16 20 H Respiratory Effort Short of Breath Blood Pressure 114/53 L 112/75 Blood Pressure Mean 73 87 Pulse Ox 99 98 Oxygen Delivery Method Room Air Room Air Positive well nourished and well developed General Appearance ED: well developed HEENT Reports normocephalic and head/scalp atraumatic Eyes PERRL and EOMs intact bilaterally Neck supple General: Negative for tenderness Chest Wall inspection of chest normal Resp normal respiratory effort and clear to auscultation bilaterally Auscultation: wheezes and diminished lung sounds Cardio regular rate and regular rhythm GI non-tender and non-distended Palpation: soft; Negative for guarding or rebound tenderness present no CVA tenderness Extremity Extremity Narrative: Bilateral symmetric lower extremity edema Neuro oriented x3 Sensorium / Orientation: alert Psych mental status grossly normal MDM MDM MDM Narrative Medical decision making narrative: CBC shows hemoglobin 7.8. Patient states he had black stool approximately 1 month ago but that has resolved. Chemistries showed BUN 43, creatinine 1.83. Troponin is negative. BNP 164.7. COVID, influenza negative. He was given Lasix IV. EKG was sinus rhythm rate of 64, similar to previous, no acute ischemic changes. INR 3.0. Patient remains hemodynamically stable. Discussed with hospitalist for admission. Lab Data Attestation: I reviewed the patient's lab results. Labs: Laboratory Results - last 24 hr 03/16/22 03/16/22 03/16/22 15:45 15:45 15:45 WBC 6.6 RBC 3.73 L Hgb 7.8 L Hct 28.1 L MCV 75.3 L MCH 20.9 L MCHC 27.8 L RDW Std Deviation 49.1 H RDW Coeff of Galo 18.0 H Plt Count 224 MPV 9.8 Immature Gran % (Auto) 0.300 Neut % (Auto) 75.2 H Lymph % (Auto) 11.2 L [place] % (Auto) 9.8 Eos % (Auto) 2.1 Baso % (Auto) 1.4 H Absolute Neuts (auto) 5.0 Absolute Lymphs (auto) 0.74 L Nucleated RBC % 0 PT INR Sodium 143 Potassium 3.3 L Chloride 105 Carbon Dioxide 29.0 Anion Gap 9 BUN 43 H Creatinine 1.83 H Estim Creat Clear Calc 33.22 Est GFR (MDRD) Af Amer 47 L Est GFR (MDRD) Non-Af 38 L BUN/Creatinine Ratio 23.5 H Glucose 222 H Calcium 8.0 L Total Bilirubin 0.80 AST 60 H ALT 47 Alkaline Phosphatase 93 Troponin I High Sens 29 B-Natriuretic Peptide 164.7 H Total Protein 6.7 Albumin 2.8 L Globulin 3.9 Albumin/Globulin Ratio 0.7 L 03/16/22 03/16/22 15:59 16:25 WBC RBC Hgb Hct MCV MCH MCHC RDW Std Deviation RDW Coeff of [place] Plt Count MPV Immature Gran % (Auto) Neut % (Auto) Lymph % (Auto) [place] % (Auto) Eos % (Auto) Baso % (Auto) Absolute Neuts (auto) Absolute Lymphs (auto) Nucleated RBC % PT Cancelled 30.8 H INR Cancelled 3.0 Sodium Potassium Chloride Carbon Dioxide Anion Gap BUN Creatinine Estim Creat Clear Calc Est GFR (MDRD) Af Amer Est GFR (MDRD) Non-Af BUN/Creatinine Ratio Glucose Calcium Total Bilirubin AST ALT Alkaline Phosphatase Troponin I High Sens B-Natriuretic Peptide Total Protein Albumin Globulin Albumin/Globulin Ratio EKG Initial EKG: Attestation: I personally reviewed and interpreted this EKG as follows: Interpretation: Sinus Rhythm and No Acute Injury Pattern Discharge Plan Triage Chief Complaint: Shortness of Breath ED Provider: Kirsten Saldaña Dx/Rx/DC Orders Clinical Impression: CHF exacerbation Prescriptions: No Action gabapentin 300 mg capsule 900 mg PO TID lisinopril 20 mg tablet 20 mg PO DAILY Hold Instructions: Hypotension Label Comments: blood pressure warfarin 3 mg tablet 3 mg PO QMWF Rx Instructions: Managed by PCP warfarin 6 mg tablet 6 mg PO QTUTHSA Rx Instructions: Managed by PCP Goran Bender U-100 Insulin 100 unit/mL (3 mL) insulin pen 33 unit subcut BID albuterol sulfate 90 mcg/actuation HFA aerosol inhaler 2 puff inhalation Q4H PRN (Reason: diabetes) pt-[id number]-fish oil-vit D3 120 mg-180 mg -1,000 unit capsule 1 cap PO DAILY clopidogrel 75 MG tablet 75 mg PO DAILY Label Comments: blood thinner insulin lispro 100 unit/mL solution 23 unit subcut TIDCM Label Comments: diabetes Rx Instructions: plus sliding scale latanoprost 2.5 ML drops 1 drp EACH EYE TID Label Comments: INSTILL 1 DROP INTO EACH EYE AT BEDTIME aspirin 81 MG tablet 81 mg PO DAILY@0800 colestipol 1 GM tablet 1 g PO BID fenofibrate nanocrystallized 145 MG tablet 145 mg PO DAILY ropinirole 0.5 mg tablet 1 mg PO QHS nortriptyline 25 mg Capsule 25 mg PO QHS fluoxetine 20 mg Tablet 20 mg PO DAILY Trulicity 3 mg/0.5 mL Pen Injector 3 mg SUBCUT QWEEK Rx Instructions: takes on Thursday famotidine 20 mg Tablet 20 mg PO QHS ondansetron 4 mg Tablet,Disintegrating 4 mg PO Q6H PRN (Reason: Nausea) nitroglycerin 0.4 mg tablet, sublingual 0.4 mg SL Q5M PRN (Reason: Chest Pain) Qty: 25 3RF pantoprazole 40 mg tablet,delayed release (DR/EC) 40 mg PO DAILY Qty: 90 3RF rosuvastatin 40 mg tablet 40 mg PO QHS Qty: 90 3RF spironolactone 25 mg tablet 25 mg PO DAILY Qty: 90 4RF isosorbide mononitrate 60 mg tablet extended release 24 hr 60 mg PO BID Qty: 180 3RF furosemide 40 mg tablet 80 mg PO BID Qty: 360 3RF Farxiga 10 mg tablet 5 mg PO DAILY carvedilol 6.25 mg tablet 6.25 mg PO BID Qty: 180 3RF Rx Instructions: must administer with a meal/food amiodarone 200 mg tablet 200 mg PO DAILY Qty: 90 3RF Primary Care Provider: Tomás Patino Referrals: Tomás Patino MD [Primary Care Provider] - Disposition Disposition: Acute Care [facility]
[2022-03-16 15:53] LABS: Absolute Lymphocyte Count 0.74 X10^3/uL (0.83-4.51); Basophil# 0.09 X10^3/uL; Basophil% 1.4 % (0-1); Eosinophil# 0.14 X10^3/uL; Eosinophils% 2.1 % (0-5); Hematocrit 28.1 % (40-54); Hemoglobin 7.8 g/dL (13.0-16.5); Lymphocyte # 0.74 X10^3/ul (0.83-4.51); Lymphocyte % 11.2 % (19-41); Mean Corp Hgb Conc 27.8 g/dL (32-36); Mean Corpuscular Hgb 20.9 pg (27.0-32.0); Mean Corpuscular Volume 75.3 fL (80-94); Mean Platelet Vol. 9.8 fl (6.2-12.0); Monocyte# 0.65 X10^3/uL; Monocyte% 9.8 % (0-10); NRBC Flagged by Analyzer 0 % (0-5); Neutrophil # 4.96 X10^3/uL (2.7-7.7); Neutrophil % 75.2 % (47-70); Platelet Count 224 K/mm3 (150-450); RBC Distribution Width SD 49.1 fl (35.1-43.9); Red Blood Count 3.73 M/mm3 (4.6-6.2); White Blood Count 6.6 K/mm3 (4.4-11.0)
[2022-03-16 16:07] LABS: BNP,B-Type NATRIURETIC PEPTIDE 164.7 pg/mL (0-100)
[2022-03-16 16:11] LABS: ALB/GLOB Ratio 0.7 RATIO (0.9-2.4); AST(SGOT) 60 U/L (15-37); Alanine Aminotransfer ALT/SGPT 47 U/L (16-61); Albumin, Serum 2.8 g/dL (3.2-5.0); Alkaline Phosphatase 93 U/L (45-117); Anion Gap 9 (5-15); BUN 43 mg/dL (7-18); BUN/Creat Ratio 23.5 RATIO (10-20); Chloride 105 mmol/L (98-107); Creatinine, Serum 1.83 mg/dL (0.70-1.30); EST Glomerular Filtration Rate 38 mL/min (>60); Est Glom Filt Rate - Afr Amer 47 mL/min (>60); Estimated Creatinine Clearance 33.22 ml/min; Globulin 3.9 g/dL (2.2-4.2); Glucose 222 mg/dL (74-106); Potassium 3.3 mmol/L (3.5-5.1); Protein, Total 6.7 g/dL (6.4-8.2); Sodium Level 143 mmol/L (136-145); Troponin-I HS 29 pg/mL (3.0-78.0)
[2022-03-16 16:44] LABS: Prothrombin Time (Protime)PT. 30.8 SECONDS (11.7-14.9)
--- NOTE | 2022-03-16 16:47 | RAD_ITS ---
INDICATION: sob EXAMINATION/TECHNIQUE: X-RAY - XR Chest 1 View COMPARISON: 03/05/2022. FINDINGS: The lungs are clear. Left basilar atelectasis. Tortuous and calcified thoracic aorta. The heart is mildly enlarged. Left-sided cardiac device. No pleural effusion or pneumothorax. Degenerative changes of the thoracic spine. RAD/Chest 1 View (Portable) IMPRESSION: No acute radiographic abnormalities. Electronically Signed: Vicente Escudero MD at 17:48 EST ,
[2022-03-16] MEDS: Furosemide 40 MG/4 ML Vial IV ×2 (16:48→22:16)
--- NOTE | 2022-03-16 17:24 | PCM.HP.STD ---
[facility] - General General Date of Admission: 03/16/22 Date of Service: 03/16/22 Chief Complaint: Shortness of breath HPI Narrative Tim LONG, is a 76 M with multiple comorbidities including coronary artery disease, ischemic cardiomyopathy with ejection fraction of 45% status post AICD placement who presented with shortness of breath. Patient reports a week history of progressive shortness of breath. His shortness of breath is brought on with minimal activity. He also did notice significant weight gain over the past couple of days. Patient's diuretic therapy has been adjusted by his primary care physician without much effect. He was seen and evaluated in urgent care center on the morning of his admission was sent to the ED. 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 HFrEF (heart failure with reduced ejection fraction) History of deep vein thrombosis (DVT) of lower extremity History of non-ST elevation myocardial infarction (NSTEMI) (11/05/16) Hyperlipidemia Ischemic cardiomyopathy Localized edema Nondisp fracture of fifth left metatarsal bone with routine healing Nonrheumatic tricuspid (valve) insufficiency Nonsustained ventricular tachycardia Normocytic anemia Obesity 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 Other specified peripheral vascular diseases Paroxysmal atrial flutter Peripheral vascular occlusive disease Type 2 diabetes mellitus Ulcer of left lower extremity with fat layer exposed Ulcer of right lower extremity Ulcer of right lower extremity with fat layer exposed Ulcer of right lower extremity with fat layer exposed Walking difficulty due to ankle and foot Xerosis cutis Home Medications clopidogrel 75 mg tablet 75 mg PO DAILY anti platelet 12/04/14 [History Last Taken 04/21/21] aspirin 81 mg tablet,delayed release 81 mg PO DAILY@0800 heart health 11/17/18 [History Last Taken 04/21/21] latanoprost 0.005 % eye drops 1 drp EACH EYE TID glaucoma 11/17/18 [History Last Taken 04/20/21] colestipol 1 gram tablet 1 g PO BID cholesterol 12/02/18 [History Last Taken 04/21/21] fenofibrate nanocrystallized 145 mg tablet 145 mg PO DAILY elevated triglycerides 12/02/18 [History Last Taken 04/21/21] gabapentin 300 mg capsule 900 mg PO TID RLS 10/27/19 [History Last Taken 04/21/21] lisinopril 20 mg tablet 20 mg PO DAILY blood pressure 06/06/20 [History Last Taken 04/21/21] nitroglycerin 0.4 mg sublingual tablet 0.4 mg sublingual Q5M PRN Chest Pain #25 tabs 10/08/20 [Rx Last Taken Unknown] dulaglutide 3 mg/0.5 mL subcutaneous pen injector (Trulicity) 3 mg subcut QWEEK diabetes 04/21/21 [History Last Taken 04/14/21] fluoxetine 20 mg tablet 20 mg PO DAILY mood 04/21/21 [History Last Taken 04/21/21] nortriptyline 25 mg capsule 25 mg PO QHS 04/21/21 [History Last Taken 04/20/21] pantoprazole 40 mg tablet,delayed release 40 mg PO DAILY stomach pill #90 tabs 05/14/21 [Rx Last Taken Unknown] rosuvastatin 40 mg tablet 40 mg PO QHS Cholesterol #90 tabs 07/08/21 [Rx Last Taken Unknown] spironolactone 25 mg tablet 25 mg PO DAILY diuretic #90 tabs 07/30/21 [Rx Last Taken Unknown] warfarin 3 mg tablet 3 mg PO QMWF blood thinner 09/11/21 [History Last Taken Unknown] warfarin 6 mg tablet 6 mg PO QTUTHSA 09/11/21 [History Last Taken Unknown] isosorbide mononitrate 60 mg tablet,extended release 24 hr 60 mg PO BID heart #180 tabs 11/14/21 [Rx Last Taken Unknown] furosemide 40 mg tablet 80 mg PO BID diuretic #360 tabs 11/29/21 [Rx Last Taken Unknown] albuterol sulfate 90 mcg/actuation aerosol inhaler 2 puff inhalation Q4H PRN diabetes 12/10/21 [History Last Taken Unknown] insulin glargine 100 unit/mL (3 mL) subcutaneous pen (Basaglar KwikPen U-100 Insulin) 33 unit subcut BID 12/10/21 [History Last Taken Unknown] insulin lispro 100 unit/mL subcutaneous solution 23 unit subcut TIDCM diabetes 12/10/21 [History Last Taken Unknown] omega-3-dha 120 mg-epa 180 mg-fish oil-vitamin D3 1,000 unit capsule 1 cap PO DAILY 12/10/21 [History Last Taken Unknown] ropinirole 0.5 mg tablet 1 mg PO QHS legs 12/10/21 [History Last Taken Unknown] dapagliflozin 10 mg tablet (Farxiga) 5 mg PO DAILY ordered by PCP 12/23/21 [History Last Taken Unknown] carvedilol 6.25 mg tablet 6.25 mg PO BID #180 tabs 01/08/22 [Rx Last Taken Unknown] amiodarone 200 mg tablet 200 mg PO DAILY aflutter #90 tabs 01/20/22 [Rx Last Taken Unknown] famotidine 20 mg tablet 20 mg PO QHS 03/16/22 [History Last Taken Unknown] ondansetron 4 mg disintegrating tablet 4 mg PO Q6H PRN Nausea 03/16/22 [History Last Taken Unknown] Allergy/AdvReac Type Severity Reaction Status Date / Time ceftriaxone sodium Allergy Rash Verified 03/16/22 14:31 [From Rocephin] milk AdvReac Diarrhea Verified 03/16/22 14:31 morphine AdvReac hallucinati Verified 03/16/22 14:31 ons Family History Father , Age 78 Prostate cancer Mother , Age 80 CVA (cerebral vascular accident) Sister Congestive heart failure Diabetes Hypertension Hyperlipidemia Atrial fibrillation CAD (coronary artery disease) Cardiac defibrillator in situ Sister Breast cancer Sister Breast cancer Brother CAD (coronary artery disease) Myocardial infarction Diabetes Brother Diabetes Brother , Age 74 COPD (chronic obstructive pulmonary disease) Sister Alive and well Surgical History H/O colonoscopy with polypectomy (11/2017) History of angioplasty of peripheral vessel History of coronary artery stent placement (12/15/14) History of detached retina repair History of electrophysiologic study (11/23/02) History of implantable cardiac defibrillator (ICD) (11/19/17) History of left heart catheterization (12/06/18) History of radiofrequency ablation procedure for cardiac arrhythmia (07/01/11) ICD (implantable cardioverter-defibrillator) in place Social History household members: spouse housing: house current occupational status: retired pets and animals: Yes (2 dogs, 2 cats) Smoking Status: Former smoker pack-years: 20 how long ago did patient quit smokin years ago alcohol intake: never caffeine: Yes Type: coffee Number of servings: 1 ROS ROS Narrative GENERAL: denies fever, chills, night sweats, HEENT: denies headache, sinus congestion, RESPIRATORY: shortness of breath, dyspnea on exertion CARDIAC: orthopnea, GASTROINTESTINAL: denies abdominal pain GENITOURINARY: denies dysuria, urgency, EXTREMITY: denies swelling MUSCULOSKELETAL: denies current joint pain NEUROLOGIC: denies focal numbness, weakness HEMATOLOGIC: denies easy bruising and/or hemorrhage INTEGUMENT: denies rashes PSYCHIATRIC: denies suicidal or homicidal ideation Vital Signs Vital Signs Vital Signs: 03/16/22 14:32 03/16/22 16:43 03/16/22 16:47 Temperature 96.5 F L Temperature Source Temporal Pulse Rate 71 63 Respiratory Rate 16 20 H Respiratory Effort Short of Breath Blood Pressure 114/53 L 112/75 Blood Pressure Mean 73 87 Pulse Ox 99 98 Oxygen Delivery Method Room Air Room Air Weight Weight: 132.903 kg Body Mass Index (BMI) 44.5 Physical Exam Narrative GENERAL: Dyspneic at rest HEENT: Atraumatic; normocephalic EYES; Anicteric, Normal Conjunctiva NECK; supple, normal thyroid, RESPIRATORY: Diminished to auscultation with bilateral wheezes CARDIOVASCULAR: Regular S1 S2, GI: soft, normoactive bowel sounds, : No Renal angle tenderness; EXTREMITIES: Bipedal edema MUSCULOSKELETAL: no muscle wasting NEURO: Awake; no lateralizing signs. SKIN: No Rash PSYCH; Flat affect Results Lab / Micro Data Result Diagrams: 03/16/22 15:45 03/16/22 15:45 Labs: Laboratory Results - last 24 hr 03/16/22 15:45: WBC 6.6, RBC 3.73 L, Hgb 7.8 L, Hct 28.1 L, MCV 75.3 L, MCH 20.9 L, MCHC 27.8 L, RDW Std Deviation 49.1 H, RDW Coeff of Galo 18.0 H, Plt Count 224, MPV 9.8, Immature Gran % (Auto) 0.300, Neut % (Auto) 75.2 H, Lymph % (Auto) 11.2 L, [place] % (Auto) 9.8, Eos % (Auto) 2.1, Baso % (Auto) 1.4 H, Absolute Neuts (auto) 5.0, Absolute Lymphs (auto) 0.74 L, Nucleated RBC % 0 03/16/22 15:45: Sodium 143, Potassium 3.3 L, Chloride 105, Carbon Dioxide 29.0, Anion Gap 9, BUN 43 H, Creatinine 1.83 H, Estim Creat Clear Calc 33.22, Est GFR (MDRD) Af Amer 47 L, Est GFR (MDRD) Non-Af 38 L, BUN/Creatinine Ratio 23.5 H, Glucose 222 H, Calcium 8.0 L, Total Bilirubin 0.80, AST 60 H, ALT 47, Alkaline Phosphatase 93, Troponin I High Sens 29, Total Protein 6.7, Albumin 2.8 L, Globulin 3.9, Albumin/Globulin Ratio 0.7 L 03/16/22 15:45: B-Natriuretic Peptide 164.7 H 03/16/22 15:59: PT Cancelled, INR Cancelled 03/16/22 16:25: PT 30.8 H, INR 3.0 Micro: Microbiology 03/16/22 15:30 Nasal Secretion SARS-CoV-2 & FLU Antigen (Rapid) - Final Assessment & Plan Assessment/Plan (1) CHF exacerbation: PLAN: Plan Patient is a 76-year-old gentleman presented with progressive shortness of breath 1. Acute on chronic congestive heart failure with reduced ejection fraction ? Patient has been admitted to a monitored bed managed with fluid restriction, low-sodium diet, daily weights, strict input and output as well as IV diuretics. 2D echo obtained in March 2021 demonstrated EF of 45% 2. Coronary artery disease ? Patient is known to have coronary artery disease but no previous history of intervention medical therapy advised. Patient is on recommended medications including statin therapy, dual antiplatelet therapy 3. Ischemic cardiomyopathy ? Status post AICD placement 4. Paroxysmal A. fib ? Rate controlled on systemic anticoagulation with Coumadin did continue with daily monitoring of INR ordered 5. Diabetes mellitus type II -patient's oral hypoglycemics held. Placed on long acting insulin, Accu-Cheks a.c. and at bedtime and covered with sliding scale insulin 6. Dyslipidemia ? Patient is on rosuvastatin as well as fenofibrate colestipol did continue 7. Class III obesity with BMI of 44.6 ? Weight loss advised 8. GERD ? On PPI did continue 9. Essential hypertension ? Patient blood pressure on the low side antihypertensives held whilst patient is on diuretics 10. Previous history of DVT ? Patient is on systemic anticoagulation with warfarin 11. DVT prophylaxis ? Patient is on Coumadin no need for additional measures Advance planning; did discuss with the patient and family regarding advanced directives as well as CODE STATUS. Did explain the various scenarios involved ( FULL CODE, DNR CCA, DNR CCA with no intubation, and DNR CC and what each meant) patient elected to remain full code with CPR and intubation if warranted. Order was placed. Time spent on discussion 18 minutes. Charges/Coding Visit Charges Inpatient E&M: 26822 Init Hosp L3 Procedures Hospitalists Procedures: 24880 Advncd Care Plan 30 Min
[2022-03-16 19:07] LABS: Troponin-I HS 26 pg/mL (3.0-78.0)
[2022-03-16] MEDS: Atorvastatin Calcium 80 MG Tablet PO (22:16)
[2022-03-16] MEDS: Famotidine 20 MG Tablet PO (22:16)
[2022-03-16] MEDS: Carvedilol 6.25 MG Tablet PO (22:16)
[2022-03-16] MEDS: Pramipexole Di-HCl 0.5 MG Tablet PO (22:17)
[2022-03-16] MEDS: Nortriptyline 25 MG Capsule PO (22:17)
[2022-03-16] MEDS: 0.9% Saline Lock 10 ML Syringe IV (22:22)
[2022-03-16 22:25] LABS: Troponin-I HS 27 pg/mL (3.0-78.0)
[2022-03-16] MEDS: Insulin Glargine-YFGN 100 UNIT/ML Pen 33 UNIT SC (22:37)
[2022-03-16] MEDS: Gabapentin 300 MG Capsule 900 MG PO (22:39)
[2022-03-16 22:51] LABS: Bedside Glucose 136 mg/dL (74-106)
[2022-03-16] MEDS: Latanoprost 0.005% 1 Bottle 1 DRP EACH EYE (23:13)
[2022-03-17] VITALS (31 sets, daily range): BP systolic 94–134; BP diastolic 45–92; PULSE 64–88; RESP 16–20; TEMP 36.2–36.7; O2SAT 92–100
[2022-03-17 05:45] LABS: Absolute Lymphocyte Count 0.74 X10^3/uL (0.83-4.51); Basophil# 0.04 X10^3/uL; Basophil% 0.9 % (0-1); Eosinophil# 0.11 X10^3/uL; Eosinophils% 2.4 % (0-5); Hematocrit 24.1 % (40-54); Hemoglobin 6.4 g/dL (13.0-16.5); Lymphocyte # 0.74 X10^3/ul (0.83-4.51); Lymphocyte % 16.2 % (19-41); Mean Corp Hgb Conc 26.6 g/dL (32-36); Mean Corpuscular Hgb 19.8 pg (27.0-32.0); Mean Corpuscular Volume 74.6 fL (80-94); Mean Platelet Vol. 9.8 fl (6.2-12.0); Monocyte# 0.64 X10^3/uL; NRBC Flagged by Analyzer 0 % (0-5); Neutrophil % 65.8 % (47-70); Platelet Count 187 K/mm3 (150-450); RBC Distribution Width CV 17.8 % (11.6-14.6); RBC Distribution Width SD 48.2 fl (35.1-43.9); Red Blood Count 3.23 M/mm3 (4.6-6.2); White Blood Count 4.6 K/mm3 (4.4-11.0)
[2022-03-17 05:49] LABS: International Normalized Ratio 3.2; Prothrombin Time (Protime)PT. 32.8 SECONDS (11.7-14.9)
[2022-03-17 06:03] LABS: Anion Gap 5 (5-15); BUN 39 mg/dL (7-18); BUN/Creat Ratio 23.1 RATIO (10-20); Calcium,Total 7.9 mg/dL (8.5-10.1); Chloride 107 mmol/L (98-107); Creatinine, Serum 1.69 mg/dL (0.70-1.30); EST Glomerular Filtration Rate 42 mL/min (>60); Est Glom Filt Rate - Afr Amer 51 mL/min (>60); Estimated Creatinine Clearance 35.98 ml/min; Glucose 133 mg/dL (74-106); Potassium 3.1 mmol/L (3.5-5.1); Sodium Level 145 mmol/L (136-145)
[2022-03-17] MEDS: Furosemide 40 MG/4 ML Vial IV ×3 (06:06→22:25)
[2022-03-17] MEDS: Colestipol 1 GM TABLET PO ×2 (06:06→20:39)
[2022-03-17] MEDS: Gabapentin 300 MG Capsule 900 MG PO ×2 (06:10→15:14)
[2022-03-17] MEDS: 0.9% Saline Lock 10 ML Syringe IV ×4 (06:11→22:25)
[2022-03-17] MEDS: Aspirin E.C. 81 MG Tablet PO (08:28)
[2022-03-17] MEDS: Spironolactone 25 MG Tablet PO (08:29)
[2022-03-17] MEDS: Pantoprazole Sodium 40 MG Tablet PO ×2 (08:29→23:27)
[2022-03-17] MEDS: Clopidogrel Bisulfate 75 MG Tablet PO (08:29)
[2022-03-17] MEDS: Fenofibrate 145 MG Tablet PO (08:29)
[2022-03-17] MEDS: Empagliflozin 10 MG Tablet PO (08:30)
[2022-03-17] MEDS: Insulin Lispro 100 UNIT/ML INSULN.PEN 20 UNIT SC ×3 (08:30→16:35)
[2022-03-17] MEDS: Insulin Glargine-YFGN 100 UNIT/ML Pen 33 UNIT SC ×2 (08:31→22:38)
[2022-03-17] MEDS: FLUoxetine 20 MG Capsule PO (08:32)
[2022-03-17 08:55] LABS: Bedside Glucose 124 mg/dL (74-106)
[2022-03-17 08:56] LABS: Ferritin 18 ng/mL (26-388); Iron 15 ug/dL (65-175); Iron Binding Capacity,Total 440 ug/dL (250-450); PERCENT IRON SATURATION 3.4 % (15.0-55.0)
[2022-03-17] MEDS: Albuterol 2.5 MG/3 ML VIAL.NEB. INHALATION (09:18)
--- NOTE | 2022-03-17 10:26 | EKG12_ITS ---
Test Reason : Blood Pressure : / mmHG Vent. Rate : 064 BPM Atrial Rate : 064 BPM P-R Int : 224 ms QRS Dur : 154 ms QT Int : 426 ms P-R-T Axes : 000 096 113 degrees QTc Int : 439 ms Sinus rhythm with 1st degree A-V block Low voltage QRS Right bundle branch block Possible Lateral infarct , age undetermined Inferior infarct , age undetermined Abnormal ECG Confirmed by LONG SIMMONS, ARNIE ([id number]), publication editor SABINE ALVAREZ ([id number]) on 03/21/2022 7:42:28 AM Referred By: AMBROSIO Confirmed By:ARNIE ALVES MD
--- NOTE | 2022-03-17 10:32 | NURSING ---
Patient c/o SOB, O2 was 90-92% on RA, audible wheezing noted. Placed on 2L supplemental O2, oxygen saturation up to 98%.
--- NOTE | 2022-03-17 10:45 | CASEMGMT ---
RN CM Face to Face with patient for initial transition planning/care coordination assessment. RN CM introduced self and role at [facility]. Patient lying in bed, alert and oriented. Patient willing to participate in assessment and is able to answer all questions appropriately. Care providers, pharmacy, and demographics verified. Patient wishes to discharge home, will monitor for HHC. Patient states he has no further needs or concerns at this time. CM to follow for discharge planning needs that may arise. PCP: Sukumar Specialists: [place] [employer]er machine Preferred Pharmacy: [facility] Insurance: [facility], [facility] Prescription Benefit: yes Living Will/HPOA: yes, Ila Devi HPOA LNOK: , daughter Living Arrangements: Patient lives with and daughter in a single story home with ramp to enter the home. Patient states he is independent at home. Transportation: self, daughter DME/HHC: Patient states he has shower chair, cane, grab bars, rollator, bipap, and pulse ox at home. Patient states he is to be getting wheelchair in [facility]. Patient has had [facility] HHC in the past. Disposition Plan: Patient to discharge home with family support and follow-up plans in place. Will monitor for HHC and home oxygen at discharge. Autumn SHEIKH, RN, CM
--- NOTE | 2022-03-17 10:50 | ECHOCS_ITS ---
Reason For Study: SOB Procedure This was a 2D Doppler, Color Flow transthoracic echocardiogram. The study was technically difficult. Exam performed portable in patient room. Left Ventricle Normal LV size. Left ventricular systolic function is normal. The estimated ejection fraction is 55 %. No regional wall motion abnormalities noted. Right Ventricle Normal RV size. ICD or pacer leads identified within the right ventricle. Normal systolic function. Atria Normal left atrium. The right atrium is mildly enlarged. Mitral Valve Mitral valve not well visualized. Tricuspid Valve The tricuspid valve is not well visualized. Mild tricuspid valve insufficiency. Pulmonary artery systolic pressure is 25 mmHg. Aortic Valve Trisinus/trileaflet aortic valve. Mild focal aortic valve calcification. Pulmonic Valve Normal pulmonic valve. Great Vessels Normal aortic root. The pulmonary artery is normal size. Normal inferior vena cava. Pericardium/Pleural No pericardial effusion. Medication Diluted definity 2ml given slow IV push to enhance endocardial definition. MMode/2D Measurements & Calculations LVIDd: 5.8 cm IVSd: 1.0 cm Ao root diam: 3.4 cm LVIDs: 4.5 cm LVPWd: 1.0 cm RVDd: 4.4 cm FS: 22.4 % LAV(MOD-bp): 51.7 ml LVAd ap4: 35.1 cm2 SV(MOD-sp4): 54.0 ml LAV(MOD-bp) Indexed: 21.7 ml/m2 LVLd ap4: 8.2 cm LAV(MOD-sp2): 47.3 ml EDV(MOD-sp4): 127.2 ml LAV(MOD-sp4): 52.6 ml EDV(sp4-el): 127.9 ml LVAs ap4: 25.3 cm2 LVLs ap4: 7.3 cm ESV(MOD-sp4): 73.2 ml ESV(sp4-el): 74.2 ml EF(MOD-sp4): 42.4 % EF(sp4-el): 42.0 % SV(sp4-el): 53.8 ml LA A4 area: 18.0 cm2 LA dimension(2D): 4.0 cm RA A4 area: 23.5 cm2 Time Measurements MV dec time: 0.24 sec Doppler Measurements & Calculations MV E max kuldip: 84.1 cm/sec Lat Peak E' Kuldip: 15.0 cm/sec Med Peak E' Kuldip: 7.6 cm/sec MV A max kuldip: 79.2 cm/sec E/E' lat: 5.6 E/E' med: 11.1 MV E/A: 1.1 Ao V2 max: 166.7 cm/sec LV V1 max: 113.2 cm/sec PA V2 max: 96.3 cm/sec Ao max P.1 mmHg LV V1 max P.1 mmHg TR max kuldip: 230.5 cm/sec TR max P.2 mmHg ECHO/Echo Complete W/ Contrast Interpretation Summary Normal LV size. Left ventricular systolic function is normal. The estimated ejection fraction is 55 %. The right atrium is mildly enlarged. Mild tricuspid valve insufficiency. Contrast injection was performed. Ordering Physician: Bailey Schilling Referring Physician: TREV ÁLVAREZ Performed By: Delmi Rincon RDCS
--- NOTE | 2022-03-17 10:56 | RAD_ITS ---
STUDY: X-RAY CHEST REASON FOR EXAM: Male, 76 years old. SOB TECHNIQUE: Single AP portable view of the chest. COMPARISON: Comparison is made with prior study dated 03/16/2022. FINDINGS: EKG electrodes are seen. Stable elevation of the right hemidiaphragm. The lungs are clear. There is no demonstrated pleural abnormality. There is mild cardiac enlargement. A left-sided unipolar pacemaker is seen. Normal mediastinum and eleuterio. Normal visualized pulmonary arteries. Normal visualized aortic arch and descending thoracic aorta. There are degenerative changes of the visualized thoracic spine. Normal visualized ribs, clavicles, and shoulders. There is no demonstrated abnormality of the visualized soft tissue structures of the upper abdomen. RAD/Chest 1 View (Portable) IMPRESSION: Stable examination. No acute amount is seen. Electronically Signed: Cosmo Malone MD at 11:27 EST ,
[2022-03-17 11:41] LABS: Bedside Glucose 233 mg/dL (74-106)
[2022-03-17 11:53] LABS: Troponin-I HS 26 pg/mL (3.0-78.0)
[2022-03-17] MEDS: Insulin Lispro 100 UNIT/ML INSULN.PEN SC ×3 (12:13→22:39)
--- NOTE | 2022-03-17 12:17 | PCM.PN.HOSP ---
Subjective Subjective Follow-up on acute CHF/hypoxia: Patient was seen and examined. He had complained of chest pain earlier on. EKG was unchanged from previous. Troponin is 26. Objective Data Objective Data Vital Signs: Vital Signs Temp Pulse Resp BP Pulse Ox O2 Del Method O2 Flow Rate 98.1 F 64 18 103/60 97 Nasal Cannula 2 03/17/22 12:07 03/17/22 12:07 03/17/22 12:07 03/17/22 12:07 03/17/22 12:07 03/17/22 12:07 03/17/22 12:07 Oxygen Flow Rate (L/min) 2 Oxygen Delivery Method Nasal Cannula Weight: 130.4 kg Body Mass Index (BMI) 44.4 Intake & Output: Intake and Output for Last 24 Hours 03/15/22 03/16/22 03/17/22 23:59 23:59 23:59 Intake Total 720 / 720 Output Total 1950 / 1950 Balance -1230 / -1230 Lab / Micro Data Result Diagrams: 03/17/22 04:54 03/17/22 04:54 Labs: Laboratory Results - last 24 hr 03/16/22 15:45: WBC 6.6, RBC 3.73 L, Hgb 7.8 L, Hct 28.1 L, MCV 75.3 L, MCH 20.9 L, MCHC 27.8 L, RDW Std Deviation 49.1 H, RDW Coeff of Galo 18.0 H, Plt Count 224, MPV 9.8, Immature Gran % (Auto) 0.300, Neut % (Auto) 75.2 H, Lymph % (Auto) 11.2 L, [place] % (Auto) 9.8, Eos % (Auto) 2.1, Baso % (Auto) 1.4 H, Absolute Neuts (auto) 5.0, Absolute Lymphs (auto) 0.74 L, Nucleated RBC % 0 03/16/22 15:45: Sodium 143, Potassium 3.3 L, Chloride 105, Carbon Dioxide 29.0, Anion Gap 9, BUN 43 H, Creatinine 1.83 H, Estim Creat Clear Calc 33.22, Est GFR (MDRD) Af Amer 47 L, Est GFR (MDRD) Non-Af 38 L, BUN/Creatinine Ratio 23.5 H, Glucose 222 H, Calcium 8.0 L, Total Bilirubin 0.80, AST 60 H, ALT 47, Alkaline Phosphatase 93, Troponin I High Sens 29, Total Protein 6.7, Albumin 2.8 L, Globulin 3.9, Albumin/Globulin Ratio 0.7 L 03/16/22 15:45: B-Natriuretic Peptide 164.7 H 03/16/22 15:59: PT Cancelled, INR Cancelled 03/16/22 16:25: PT 30.8 H, INR 3.0 03/16/22 18:40: Troponin I High Sens 26 03/16/22 21:37: Troponin I High Sens 27 03/16/22 22:29: POC Glucose 136 H 03/17/22 04:54: WBC 4.6, RBC 3.23 L, Hgb 6.4 L, Hct 24.1 L, MCV 74.6 L, MCH 19.8 L, MCHC 26.6 L, RDW Std Deviation 48.2 H, RDW Coeff of Galo 17.8 H, Plt Count 187, MPV 9.8, Immature Gran % (Auto) 0.700, Neut % (Auto) 65.8, Lymph % (Auto) 16.2 L, [place] % (Auto) 14.0 H, Eos % (Auto) 2.4, Baso % (Auto) 0.9, Absolute Neuts (auto) 3.0, Absolute Lymphs (auto) 0.74 L, Nucleated RBC % 0 03/17/22 04:54: PT 32.8 H, INR 3.2 03/17/22 04:54: Sodium 145, Potassium 3.1 L, Chloride 107, Carbon Dioxide 33.0 H, Anion Gap 5, BUN 39 H, Creatinine 1.69 H, Estim Creat Clear Calc 35.98, Est GFR (MDRD) Af Amer 51 L, Est GFR (MDRD) Non-Af 42 L, BUN/Creatinine Ratio 23.1 H, Glucose 133 H, Calcium 7.9 L 03/17/22 04:54: Iron 15 L, TIBC 440, Iron Saturation 3.4 L, Ferritin 18 L 03/17/22 08:22: Blood Type AB POSITIVE, Antibody Screen NEGATIVE, Crossmatch See Detail 03/17/22 08:25: POC Glucose 124 H 03/17/22 10:55: Troponin I High Sens 26 03/17/22 11:17: POC Glucose 233 H Micro: Microbiology 03/16/22 15:30 Nasal Secretion SARS-CoV-2 & FLU Antigen (Rapid) - Final Radiography Diagnostic Testing: Radiology Impression Chest X-Ray 03/16/22 16:47 IMPRESSION: No acute radiographic abnormalities. Electronically Signed: Vicente Escudero MD at 17:48 EST , Chest X-Ray 03/17/22 10:56 IMPRESSION: Stable examination. No acute amount is seen. Electronically Signed: Cosmo Malone MD at 11:27 EST , Physical Exam Narrative Physical exam: General: Alert, Oriented x3, Cooperative, morbidly obese, on 2 L of oxygen HEENT: Atraumatic Oral: Moist Mucosa Neck: Supple Lungs: Diminished to auscultation, scattered wheezes Cardiovascular: HS I+II, regular, no murmurs Abdomen: Bowel Sounds Present, Soft, Non Tender Extremities: No edema Skin: No rashes, No breakdown Neurological: Grossly intact Psych/Mental Status: Appropriate Assessment & Plan Assessment/Plan (1) CHF exacerbation: PLAN: Plan 1. Acute hypoxia secondary to acute on chronic heart failure with reduced ejection fraction, EF 55% Patient is currently on 2 L of oxygen, continue with breathing treatments, Lasix IV every 8, CHF protocol Encourage use of incentive spirometer. Wean off oxygen for SPO2 more than 94% 2. Severe anemia, iron deficient, hemoglobin 6.4 We will transfuse 2 units of packed RBCs, check stool for occult blood Increase pantoprazole to 40 mg p.o. twice daily 3. CAD/ischemic cardiomyopathy status post AICD/paroxysmal atrial fibrillation/hypertension Continue on aspirin, statin, Coreg, Plavix, Imdur, lisinopril, spironolactone for now INR was 3.2, hold Coumadin 4. Type II DM, blood sugars are fairly controlled Continue on Jardiance, Lantus, Premeal insulin as well as insulin sliding scale 5. Morbid obesity, BMI 43.7, lifestyle modification recommended 6. GERD, on PPI 7. History of DVT, INR was 3.2, will put Coumadin on hold, repeat INR in a.m. 8. DVT prophylaxis?INR slightly supratherapeutic, hold Coumadin in the light of anemia Charges/Coding Visit Charges Inpatient E&M: 43780 Subs Hosp L3
[2022-03-17] MEDS: Ipratropium/Albuterol Sulfate 3 ML AMPUL.NEB INHALATION ×3 (14:57→23:52)
[2022-03-17] MEDS: Potassium Chloride Oral Tablet 20 MEQ 40 MEQ PO (16:39)
[2022-03-17 16:55] LABS: Bedside Glucose 187 mg/dL (74-106)
--- NOTE | 2022-03-17 19:00 | PCA ---
EMERGENCY DOCUMENTATION
--- NOTE | 2022-03-17 19:00 | NURSING ---
Emergency documentation
--- NOTE | 2022-03-17 20:07 | CPS ---
Exp wheezes in upper airway/throat. crackles in bases
--- NOTE | 2022-03-17 20:26 | NURSING ---
Emergency documentation per [employer] operations intelligence officer.
[2022-03-17 22:35] LABS: Bedside Glucose 168 mg/dL (74-106)
--- NOTE | 2022-03-17 22:40 | RAD_ITS ---
STUDY: X-RAY CHEST REASON FOR EXAM: Male, 76 years old. SOB, cough TECHNIQUE: Single AP portable view of the chest. COMPARISON: None. FINDINGS: Pacemaker the left. Subsegmental atelectasis in right lung base. There is no demonstrated pleural abnormality. Normal size heart. Normal mediastinum and eleuterio. Normal visualized pulmonary arteries. Normal visualized aortic arch and descending thoracic aorta. There are diffuse degenerative changes of the visualized thoracic spine. There is degenerative osteoarthritis of the bilateral shoulders. There is no demonstrated abnormality of the visualized soft tissue structures of the upper abdomen. RAD/Chest 1 View (Portable) IMPRESSION: Degenerative changes, as described above. No demonstrated acute cardiopulmonary process. Electronically Signed: Joseph Zuñiga MD at 0:52 EST ,
[2022-03-17] MEDS: Nortriptyline 25 MG Capsule PO (23:27)
[2022-03-17] MEDS: Pramipexole Di-HCl 0.5 MG Tablet PO (23:27)
[2022-03-17] MEDS: Atorvastatin Calcium 80 MG Tablet PO (23:27)
[2022-03-17] MEDS: Carvedilol 6.25 MG Tablet PO (23:27)
[2022-03-17] MEDS: Famotidine 20 MG Tablet PO (23:27)
[2022-03-18] VITALS (16 sets, daily range): BP systolic 105–130; BP diastolic 59–79; PULSE 64–82; RESP 14–20; TEMP 36.2–36.9; O2SAT 87–100
[2022-03-18] MEDS: Gabapentin 300 MG Capsule 900 MG PO ×4 (00:01→22:05)
[2022-03-18] MEDS: 0.9% Saline Lock 10 ML Syringe IV ×3 (00:28→14:38)
[2022-03-18] MEDS: HYDROmorphone 1 MG/ML Syringe IV (00:28)
[2022-03-18 01:13] LABS: Absolute Lymphocyte Count 0.95 X10^3/uL (0.83-4.51); Absolute Neutrophil Count 4.4 X10^3/uL (2.0-7.7); Basophil# 0.06 X10^3/uL; Basophil% 0.9 % (0-1); Eosinophil# 0.11 X10^3/uL; Eosinophils% 1.7 % (0-5); Hematocrit 30.2 % (40-54); Hemoglobin 8.5 g/dL (13.0-16.5); Lymphocyte # 0.95 X10^3/ul (0.83-4.51); Lymphocyte % 14.9 % (19-41); Mean Corp Hgb Conc 28.1 g/dL (32-36); Mean Corpuscular Hgb 21.3 pg (27.0-32.0); Mean Corpuscular Volume 75.5 fL (80-94); Mean Platelet Vol. 9.9 fl (6.2-12.0); Monocyte# 0.79 X10^3/uL; Monocyte% 12.4 % (0-10); NRBC Flagged by Analyzer 0.3 % (0-5); Neutrophil # 4.43 X10^3/uL (2.7-7.7); Neutrophil % 69.5 % (47-70); Platelet Count 192 K/mm3 (150-450); RBC Distribution Width SD 48.8 fl (35.1-43.9); White Blood Count 6.4 K/mm3 (4.4-11.0)
--- NOTE | 2022-03-18 05:07 | NURSING ---
Nurse took over patient care at 4:20 am
[2022-03-18] MEDS: Furosemide 40 MG/4 ML Vial IV ×2 (06:21→14:38)
[2022-03-18] MEDS: Colestipol 1 GM TABLET PO ×2 (06:21→17:11)
[2022-03-18] MEDS: Ipratropium/Albuterol Sulfate 3 ML AMPUL.NEB INHALATION ×4 (07:18→19:36)
[2022-03-18 08:09] LABS: Absolute Lymphocyte Count 0.86 X10^3/uL (0.83-4.51); Absolute Neutrophil Count 3.9 X10^3/uL (2.0-7.7); Basophil# 0.07 X10^3/uL; Basophil% 1.2 % (0-1); Eosinophil# 0.19 X10^3/uL; Eosinophils% 3.3 % (0-5); Hemoglobin 8.5 g/dL (13.0-16.5); Lymphocyte # 0.86 X10^3/ul (0.83-4.51); Mean Corp Hgb Conc 28.3 g/dL (32-36); Mean Corpuscular Hgb 21.6 pg (27.0-32.0); Mean Corpuscular Volume 76.1 fL (80-94); Mean Platelet Vol. 9.7 fl (6.2-12.0); Monocyte# 0.71 X10^3/uL; Monocyte% 12.4 % (0-10); NRBC Flagged by Analyzer 0 % (0-5); Neutrophil # 3.88 X10^3/uL (2.7-7.7); Neutrophil % 67.8 % (47-70); Platelet Count 182 K/mm3 (150-450); RBC Distribution Width CV 17.9 % (11.6-14.6); RBC Distribution Width SD 49.1 fl (35.1-43.9); Red Blood Count 3.94 M/mm3 (4.6-6.2); White Blood Count 5.7 K/mm3 (4.4-11.0)
[2022-03-18] MEDS: Isosorbide Mononitrate 60 MG Tablet PO ×2 (08:19→08:20)
[2022-03-18] MEDS: Lisinopril 20 MG Tablet PO ×2 (08:19→08:20)
[2022-03-18] MEDS: Insulin Lispro 100 UNIT/ML INSULN.PEN 20 UNIT SC ×3 (08:19→17:08)
[2022-03-18] MEDS: Clopidogrel Bisulfate 75 MG Tablet PO ×2 (08:19→08:20)
[2022-03-18] MEDS: Carvedilol 6.25 MG Tablet PO ×2 (08:20→22:08)
[2022-03-18] MEDS: Fenofibrate 145 MG Tablet PO (08:20)
[2022-03-18] MEDS: Empagliflozin 10 MG Tablet PO (08:21)
[2022-03-18] MEDS: Pantoprazole Sodium 40 MG Tablet PO ×2 (08:21→22:06)
[2022-03-18] MEDS: Aspirin E.C. 81 MG Tablet PO (08:21)
[2022-03-18] MEDS: Potassium Chloride Oral Tablet 20 MEQ 40 MEQ PO (08:21)
[2022-03-18] MEDS: FLUoxetine 20 MG Capsule PO (08:22)
[2022-03-18] MEDS: Insulin Glargine-YFGN 100 UNIT/ML Pen 33 UNIT SC ×2 (08:22→23:03)
[2022-03-18 08:56] LABS: ALB/GLOB Ratio 0.7 RATIO (0.9-2.4); AST(SGOT) 52 U/L (15-37); Alanine Aminotransfer ALT/SGPT 42 U/L (16-61); Albumin, Serum 2.8 g/dL (3.2-5.0); Alkaline Phosphatase 75 U/L (45-117); Anion Gap 9 (5-15); BUN 34 mg/dL (7-18); BUN/Creat Ratio 20.9 RATIO (10-20); Calcium,Total 8.2 mg/dL (8.5-10.1); Chloride 102 mmol/L (98-107); Creatinine, Serum 1.63 mg/dL (0.70-1.30); EST Glomerular Filtration Rate 44 mL/min (>60); Est Glom Filt Rate - Afr Amer 53 mL/min (>60); Globulin 3.8 g/dL (2.2-4.2); Glucose 119 mg/dL (74-106); Potassium 3.2 mmol/L (3.5-5.1); Protein, Total 6.6 g/dL (6.4-8.2); Sodium Level 142 mmol/L (136-145)
[2022-03-18 09:16] LABS: Bedside Glucose 119 mg/dL (74-106)
[2022-03-18 11:11] LABS: Bedside Glucose 252 mg/dL (74-106)
[2022-03-18] MEDS: Insulin Lispro 100 UNIT/ML INSULN.PEN SC (12:34)
[2022-03-18] MEDS: Spironolactone 25 MG Tablet PO (12:34)
[2022-03-18] MEDS: Potassium Chloride Oral Tablet 20 MEQ 60 MEQ PO (12:42)
[2022-03-18] MEDS: Polyethylene Glycol 3350 17 GM PACKET PO (14:38)
[2022-03-18] MEDS: Bisacodyl 10 MG Suppository RC (14:40)
[2022-03-18 17:35] LABS: Bedside Glucose 132 mg/dL (74-106)
--- NOTE | 2022-03-18 17:52 | PN.HOSP_ITS ---
Subjective Subjective Follow-up on Acute CHF/hypoxia: Patient was seen and examined. Patient feels improved. He complains of constipation. He is currently on 3 L of oxygen. Objective Data Objective Data Vital Signs: Vital Signs Temp Pulse Resp BP Pulse Ox O2 Del Method O2 Flow Rate 97.5 F L 82 16 110/65 98 Room Air 3 03/18/22 15:23 03/18/22 15:53 03/18/22 15:23 03/18/22 15:23 03/18/22 15:23 03/18/22 17:28 03/18/22 10:00 Oxygen Flow Rate (L/min) 3 Oxygen Delivery Method Room Air Weight: 130.9 kg Body Mass Index (BMI) 44.4 Intake & Output: Intake and Output for Last 24 Hours 03/16/22 03/17/22 03/18/22 23:59 23:59 23:59 Intake Total 1040 / 1140 1480 / 1480 Output Total 2375 / 3425 2350 / 2350 Balance -1335 / -2285 -870 / -870 Lab / Micro Data Result Diagrams: 03/18/22 07:05 03/18/22 07:05 Labs: Laboratory Results - last 24 hr 03/17/22 08:22: Crossmatch See Detail 03/17/22 22:16: POC Glucose 168 H 03/18/22 00:47: WBC 6.4, RBC 4.00 L, Hgb 8.5 L, Hct 30.2 L, MCV 75.5 L, MCH 21.3 L, MCHC 28.1 L D, RDW Std Deviation 48.8 H, RDW Coeff of Galo 18.0 H, Plt Count 192, MPV 9.9, Immature Gran % (Auto) 0.600, Neut % (Auto) 69.5, Lymph % (Auto) 14.9 L, [place] % (Auto) 12.4 H, Eos % (Auto) 1.7, Baso % (Auto) 0.9, Absolute Neuts (auto) 4.4, Absolute Lymphs (auto) 0.95, Nucleated RBC % 0.3 03/18/22 07:05: WBC 5.7, RBC 3.94 L, Hgb 8.5 L, Hct 30.0 L, MCV 76.1 L, MCH 21.6 L, MCHC 28.3 L, RDW Std Deviation 49.1 H, RDW Coeff of Galo 17.9 H, Plt Count 182, MPV 9.7, Immature Gran % (Auto) 0.300, Neut % (Auto) 67.8, Lymph % (Auto) 15.0 L, [place] % (Auto) 12.4 H, Eos % (Auto) 3.3, Baso % (Auto) 1.2 H, Absolute Neuts (auto) 3.9, Absolute Lymphs (auto) 0.86, Nucleated RBC % 0 03/18/22 07:05: Sodium 142, Potassium 3.2 L, Chloride 102, Carbon Dioxide 31.0, Anion Gap 9, BUN 34 H, Creatinine 1.63 H, Estim Creat Clear Calc 37.30, Est GFR (MDRD) Af Amer 53 L, Est GFR (MDRD) Non-Af 44 L, BUN/Creatinine Ratio 20.9 H, Glucose 119 H, Calcium 8.2 L, Total Bilirubin 1.40 H, AST 52 H, ALT 42, Alkaline Phosphatase 75, Total Protein 6.6, Albumin 2.8 L, Globulin 3.8, Albumin/Globulin Ratio 0.7 L 03/18/22 08:14: POC Glucose 119 H 03/18/22 10:54: POC Glucose 252 H 03/18/22 17:04: POC Glucose 132 H Micro: Microbiology 03/18/22 15:55 Stool Stool Occult Blood (JAYME) - Final Occult Blood Positive 03/17/22 13:20 Mucosa - Nasopharyngeal Respiratory Panel (PCR) - Final 03/16/22 15:30 Nasal Secretion SARS-CoV-2 & FLU Antigen (Rapid) - Final Radiography Diagnostic Testing: Radiology Impression Chest X-Ray 03/17/22 22:40 IMPRESSION: Degenerative changes, as described above. No demonstrated acute cardiopulmonary process. Electronically Signed: Joseph Zuñiga MD at 0:52 EST , Physical Exam Narrative Physical exam: General: Alert, Oriented x3, Cooperative, morbidly obese, on 2 L of oxygen HEENT: Atraumatic Oral: Moist Mucosa Neck: Supple Lungs: Diminished to auscultation, scattered wheezes Cardiovascular: HS I+II, regular, no murmurs Abdomen: Bowel Sounds Present, Soft, Non Tender Extremities: No edema Skin: No rashes, No breakdown Neurological: Grossly intact Psych/Mental Status: Appropriate Assessment & Plan Assessment/Plan (1) CHF exacerbation: PLAN: Plan 1. Acute hypoxia secondary to acute on chronic heart failure with reduced ejection fraction, EF 55% Patient is currently on 3 L of oxygen, Encourage use of incentive spirometer. Wean off oxygen for SPO2 more than 94% Will decrease Lasix to 40mg IV BID, continue with CHF management 2. Severe anemia, iron deficient, hemoglobin is currently 8.5 Status post 2 units of packed RBCs on 03/17/22 Continue pantoprazole 40 mg p.o. twice daily 3. Hypokalemia, replace, recheck in a.m. 4. CAD/ischemic cardiomyopathy status post AICD/paroxysmal atrial fibrillation/hypertension Continue on aspirin, statin, Coreg, Plavix, Imdur, lisinopril, spironolactone for now INR is 2.3, continue to hold Coumadin 4. Type II DM, blood sugars are fairly controlled Continue on Jardiance, Lantus, Premeal insulin as well as insulin sliding scale 5. Morbid obesity, BMI 43.7, lifestyle modification recommended 6. GERD, on PPI 7. History of DVT, INR is 2.3, continue to hold Coumadin, repeat INR in a.m. 8. DVT prophylaxis?INR is therapeutic at 2.3 Charges/Coding Visit Charges Inpatient E&M: 15681 [facility] Hosp L3
[2022-03-18 18:57] LABS: International Normalized Ratio 2.3; Prothrombin Time (Protime)PT. 24.6 SECONDS (11.7-14.9)
[2022-03-18] MEDS: Atorvastatin Calcium 80 MG Tablet PO (22:04)
[2022-03-18] MEDS: Pramipexole Di-HCl 0.5 MG Tablet PO (22:04)
[2022-03-18] MEDS: Nortriptyline 25 MG Capsule PO (22:06)
[2022-03-18] MEDS: Famotidine 20 MG Tablet PO (22:06)
[2022-03-19] VITALS (20 sets, daily range): BP systolic 99–151; BP diastolic 65–96; PULSE 60–74; RESP 15–20; TEMP 36.2–36.6; O2SAT 89–100
[2022-03-19] MEDS: Ipratropium/Albuterol Sulfate 3 ML AMPUL.NEB INHALATION ×5 (00:19→20:51)
[2022-03-19 01:10] LABS: Bedside Glucose 120 mg/dL (74-106)
--- NOTE | 2022-03-19 03:08 | NURSING ---
Spoke with patient to verify dose for Xalantan eye drops. Pt confirmed he uses them TID at home. Spoke w/ Pharmacist Francis to clarify order.
[2022-03-19] MEDS: Benzonatate 100 MG Capsule PO ×2 (03:20→21:25)
[2022-03-19 05:21] LABS: Absolute Lymphocyte Count 1.01 X10^3/uL (0.83-4.51); Absolute Neutrophil Count 4.7 X10^3/uL (2.0-7.7); Basophil# 0.07 X10^3/uL; Eosinophil# 0.23 X10^3/uL; Eosinophils% 3.4 % (0-5); Hematocrit 29.8 % (40-54); Hemoglobin 8.3 g/dL (13.0-16.5); Lymphocyte # 1.01 X10^3/ul (0.83-4.51); Lymphocyte % 14.7 % (19-41); Mean Corp Hgb Conc 27.9 g/dL (32-36); Mean Corpuscular Hgb 21.1 pg (27.0-32.0); Mean Corpuscular Volume 75.8 fL (80-94); Mean Platelet Vol. 9.7 fl (6.2-12.0); Monocyte# 0.85 X10^3/uL; Monocyte% 12.4 % (0-10); NRBC Flagged by Analyzer 0 % (0-5); Neutrophil # 4.68 X10^3/uL (2.7-7.7); Neutrophil % 68.4 % (47-70); Platelet Count 174 K/mm3 (150-450); RBC Distribution Width CV 18.3 % (11.6-14.6); RBC Distribution Width SD 50.2 fl (35.1-43.9); Red Blood Count 3.93 M/mm3 (4.6-6.2); White Blood Count 6.9 K/mm3 (4.4-11.0)
[2022-03-19 06:09] LABS: ALB/GLOB Ratio 0.7 RATIO (0.9-2.4); AST(SGOT) 48 U/L (15-37); Alanine Aminotransfer ALT/SGPT 37 U/L (16-61); Albumin, Serum 2.6 g/dL (3.2-5.0); Alkaline Phosphatase 78 U/L (45-117); Anion Gap 3 (5-15); BUN 36 mg/dL (7-18); Calcium,Total 8.1 mg/dL (8.5-10.1); Chloride 105 mmol/L (98-107); Creatinine, Serum 1.64 mg/dL (0.70-1.30); EST Glomerular Filtration Rate 44 mL/min (>60); Est Glom Filt Rate - Afr Amer 53 mL/min (>60); Estimated Creatinine Clearance 37.07 ml/min; Globulin 3.6 g/dL (2.2-4.2); Glucose 120 mg/dL (74-106); Potassium 3.9 mmol/L (3.5-5.1); Protein, Total 6.2 g/dL (6.4-8.2); Sodium Level 141 mmol/L (136-145)
[2022-03-19] MEDS: Gabapentin 300 MG Capsule 900 MG PO ×3 (06:24→21:24)
[2022-03-19] MEDS: Colestipol 1 GM TABLET PO ×2 (06:25→17:48)
[2022-03-19 08:29] LABS: International Normalized Ratio 2.3; Prothrombin Time (Protime)PT. 24.7 SECONDS (11.7-14.9)
[2022-03-19] MEDS: Insulin Lispro 100 UNIT/ML INSULN.PEN 20 UNIT SC ×3 (08:43→16:54)
[2022-03-19] MEDS: Aspirin E.C. 81 MG Tablet PO (08:46)
[2022-03-19] MEDS: Fenofibrate 145 MG Tablet PO (08:46)
[2022-03-19] MEDS: Insulin Glargine-YFGN 100 UNIT/ML Pen 33 UNIT SC (09:00)
[2022-03-19 09:26] LABS: Bedside Glucose 150 mg/dL (74-106)
[2022-03-19] MEDS: Spironolactone 25 MG Tablet PO (09:58)
[2022-03-19] MEDS: Carvedilol 6.25 MG Tablet PO ×2 (09:58→21:23)
[2022-03-19] MEDS: Empagliflozin 10 MG Tablet PO (10:00)
[2022-03-19] MEDS: Pantoprazole Sodium 40 MG Tablet PO (10:01)
[2022-03-19] MEDS: FLUoxetine 20 MG Capsule PO (10:01)
[2022-03-19] MEDS: Furosemide 40 MG/4 ML Vial IV ×2 (10:01→17:49)
[2022-03-19] MEDS: 0.9% Saline Lock 10 ML Syringe IV ×4 (10:02→21:33)
[2022-03-19] MEDS: Insulin Lispro 100 UNIT/ML INSULN.PEN SC ×3 (11:14→22:20)
[2022-03-19 11:51] LABS: Bedside Glucose 194 mg/dL (74-106)
--- NOTE | 2022-03-19 12:42 | PN.HOSP_ITS ---
Subjective Subjective Follow-up on Acute CHF/hypoxia: Patient was seen and examined. Patient complains of feeling very short of breath with wheezes. Denies any fever or chills. Remains on 2 L of oxygen. Objective Data Objective Data Vital Signs: Vital Signs Temp Pulse Resp BP Pulse Ox O2 Del Method O2 Flow Rate 97.8 F 69 16 100/65 98 Nasal Cannula 2 03/19/22 09:56 03/19/22 11:23 03/19/22 11:23 03/19/22 09:56 03/19/22 09:56 03/19/22 09:56 03/19/22 09:56 Oxygen Flow Rate (L/min) [At 2 REST with Oxygen] Oxygen Flow Rate (L/min) 2 Oxygen Delivery Method Nasal Cannula Weight: 132.2 kg Body Mass Index (BMI) 44.4 Intake & Output: Intake and Output for Last 24 Hours 03/17/22 03/18/22 03/19/22 23:59 23:59 23:59 Intake Total 1040 / 1140 1480 / 1700 660 / 660 Output Total 2375 / 3425 2350 / 2950 1150 / 1150 Balance -1335 / -2285 -870 / -1250 -490 / -490 Lab / Micro Data Result Diagrams: 03/19/22 04:50 03/19/22 04:50 Labs: Laboratory Results - last 24 hr 03/18/22 17:04: POC Glucose 132 H 03/18/22 18:20: PT 24.6 H, INR 2.3 03/18/22 22:01: POC Glucose 120 H 03/19/22 04:50: WBC 6.9, RBC 3.93 L, Hgb 8.3 L, Hct 29.8 L, MCV 75.8 L, MCH 21.1 L, MCHC 27.9 L, RDW Std Deviation 50.2 H, RDW Coeff of Galo 18.3 H, Plt Count 174, MPV 9.7, Immature Gran % (Auto) 0.100, Neut % (Auto) 68.4, Lymph % (Auto) 14.7 L, [place] % (Auto) 12.4 H, Eos % (Auto) 3.4, Baso % (Auto) 1.0, Absolute Neuts (auto) 4.7, Absolute Lymphs (auto) 1.01, Nucleated RBC % 0 03/19/22 04:50: Sodium 141, Potassium 3.9, Chloride 105, Carbon Dioxide 33.0 H, Anion Gap 3 L, BUN 36 H, Creatinine 1.64 H, Estim Creat Clear Calc 37.07, Est GFR (MDRD) Af Amer 53 L, Est GFR (MDRD) Non-Af 44 L, BUN/Creatinine Ratio 22.0 H , Glucose 120 H, Calcium 8.1 L, Total Bilirubin 0.90, AST 48 H, ALT 37, Alkaline Phosphatase 78, Total Protein 6.2 L, Albumin 2.6 L, Globulin 3.6, Albumin/Glob ulin Ratio 0.7 L 03/19/22 04:50: PT 24.7 H, INR 2.3 03/19/22 08:42: POC Glucose 150 H 03/19/22 11:13: POC Glucose 194 H Micro: Microbiology 03/18/22 15:55 Stool Stool Occult Blood (JAYME) - Final Occult Blood Positive 03/17/22 13:20 Mucosa - Nasopharyngeal Respiratory Panel (PCR) - Final 03/16/22 15:30 Nasal Secretion SARS-CoV-2 & FLU Antigen (Rapid) - Final Physical Exam Narrative Physical exam: General: Alert, Oriented x3, Cooperative, morbidly obese, on 2 L of oxygen HEENT: Atraumatic Oral: Moist Mucosa Neck: Supple Lungs: Diminished to auscultation, wheezes++ Cardiovascular: HS I+II, regular, no murmurs Abdomen: Bowel Sounds Present, Soft, Non Tender Extremities: No edema Skin: No rashes, No breakdown Neurological: Grossly intact Psych/Mental Status: Appropriate Assessment & Plan Assessment/Plan (1) CHF exacerbation: PLAN: Plan 1. Acute hypoxia secondary to acute on chronic heart failure with reduced ejection fraction, EF 55% Patient is currently on 2 L of oxygen, Encourage use of incentive spirometer. Wean off oxygen for SPO2 more than 94% Continue on Lasix 40mg IV BID, continue with CHF management 2. Probable acute COPD exacerbation, patient with significant wheezes We will start patient on IV Solu-Medrol, continue breathing treatments 3. Severe anemia, iron deficient, hemoglobin is currently 8.3 Status post 2 units of packed RBCs on 03/17/22 Continue pantoprazole 40 mg p.o. twice daily 4. Hypokalemia, replace 5. CAD/ischemic cardiomyopathy status post AICD/paroxysmal atrial fibrillation/hypertension Continue on aspirin, statin, Coreg, Plavix, Imdur, lisinopril, spironolactone for now INR is 2.3, continue to hold Coumadin 6. Type II DM, blood sugars are fairly controlled Continue on Jardiance, Lantus, Premeal insulin as well as insulin sliding scale 7. Morbid obesity, BMI 43.7, lifestyle modification recommended 8. GERD, on PPI 9. History of DVT, INR is 2.3, will resume Coumadin, repeat INR in a.m. 10. DVT prophylaxis?INR is therapeutic at 2.3, will resume Coumadin Charges/Coding Visit Charges Inpatient E&M: 87499 Subs Hosp L3
--- NOTE | 2022-03-19 16:52 | EKG12_ITS ---
Test Reason : sob Blood Pressure : / mmHG Vent. Rate : 068 BPM Atrial Rate : 068 BPM P-R Int : 232 ms QRS Dur : 112 ms QT Int : 186 ms P-R-T Axes : 055 -51 000 degrees QTc Int : 197 ms Sinus rhythm with 1st degree A-V block Left axis deviation Low voltage QRS Inferior infarct , age undetermined Possible Anterolateral infarct , age undetermined Abnormal ECG Confirmed by LONG SIMMONS, ARNIE ([id number]), video editor SABINE ALVAREZ ([id number]) on 03/27/2022 8:15:34 AM Referred By: SANTO Confirmed By:ARNIE ALVES MD
[2022-03-19 17:25] LABS: Bedside Glucose 244 mg/dL (74-106)
[2022-03-19] MEDS: Latanoprost 0.005% 1 Bottle 1 DRP EACH EYE (21:24)
[2022-03-19] MEDS: Nortriptyline 25 MG Capsule PO (21:24)
[2022-03-19] MEDS: Pramipexole Di-HCl 0.5 MG Tablet PO (21:24)
[2022-03-19] MEDS: Atorvastatin Calcium 80 MG Tablet PO (21:24)
[2022-03-19] MEDS: Insulin Glargine-YFGN 100 UNIT/ML Pen 35 UNIT SC (22:19)
[2022-03-19 23:40] LABS: Bedside Glucose 302 mg/dL (74-106)
[2022-03-20] VITALS (18 sets, daily range): BP systolic 116–143; BP diastolic 61–84; PULSE 63–79; RESP 15–24; TEMP 36.4–36.7; O2SAT 94–98
[2022-03-20] MEDS: Ipratropium/Albuterol Sulfate 3 ML AMPUL.NEB INHALATION ×6 (00:58→22:36)
[2022-03-20] MEDS: Benzonatate 100 MG Capsule PO (03:47)
[2022-03-20] MEDS: Colestipol 1 GM TABLET PO ×2 (05:39→18:12)
[2022-03-20] MEDS: Gabapentin 300 MG Capsule 900 MG PO ×3 (05:39→21:15)
[2022-03-20 06:37] LABS: Absolute Lymphocyte Count 0.51 X10^3/uL (0.83-4.51); Absolute Neutrophil Count 7.2 X10^3/uL (2.0-7.7); Basophil# 0.01 X10^3/uL; Basophil% 0.1 % (0-1); Eosinophil# 0.01 X10^3/uL; Eosinophils% 0.1 % (0-5); Hematocrit 31.3 % (40-54); Hemoglobin 8.7 g/dL (13.0-16.5); Lymphocyte # 0.51 X10^3/ul (0.83-4.51); Lymphocyte % 6.4 % (19-41); Mean Corp Hgb Conc 27.8 g/dL (32-36); Mean Corpuscular Hgb 21.2 pg (27.0-32.0); Mean Corpuscular Volume 76.2 fL (80-94); Mean Platelet Vol. 10.1 fl (6.2-12.0); Monocyte# 0.27 X10^3/uL; Monocyte% 3.4 % (0-10); NRBC Flagged by Analyzer 0 % (0-5); Neutrophil # 7.19 X10^3/uL (2.7-7.7); Neutrophil % 89.5 % (47-70); POSITIVE DIFFERENTIAL YES; Platelet Count 176 K/mm3 (150-450); RBC Distribution Width CV 18.7 % (11.6-14.6); RBC Distribution Width SD 50.2 fl (35.1-43.9); Red Blood Count 4.11 M/mm3 (4.6-6.2)
[2022-03-20 06:49] LABS: International Normalized Ratio 1.9; Prothrombin Time (Protime)PT. 21.2 SECONDS (11.7-14.9)
[2022-03-20 06:51] LABS: Differential Indicated SCAN CRITERIA MET
[2022-03-20 06:56] LABS: Differential Comment SCANNED
[2022-03-20 07:09] LABS: ALB/GLOB Ratio 0.7 RATIO (0.9-2.4); AST(SGOT) 41 U/L (15-37); Alanine Aminotransfer ALT/SGPT 38 U/L (16-61); Albumin, Serum 2.7 g/dL (3.2-5.0); Alkaline Phosphatase 89 U/L (45-117); Anion Gap 4 (5-15); BUN 37 mg/dL (7-18); BUN/Creat Ratio 24.3 RATIO (10-20); Calcium,Total 8.5 mg/dL (8.5-10.1); Chloride 101 mmol/L (98-107); Creatinine, Serum 1.52 mg/dL (0.70-1.30); EST Glomerular Filtration Rate 48 mL/min (>60); Est Glom Filt Rate - Afr Amer 58 mL/min (>60); Globulin 3.9 g/dL (2.2-4.2); Glucose 225 mg/dL (74-106); Potassium 4.5 mmol/L (3.5-5.1); Protein, Total 6.6 g/dL (6.4-8.2); Sodium Level 135 mmol/L (136-145)
[2022-03-20] MEDS: Insulin Lispro 100 UNIT/ML INSULN.PEN SC ×4 (07:58→21:39)
[2022-03-20] MEDS: Insulin Lispro 100 UNIT/ML INSULN.PEN 20 UNIT SC ×3 (07:58→16:28)
[2022-03-20] MEDS: Aspirin E.C. 81 MG Tablet PO (08:00)
[2022-03-20] MEDS: Fenofibrate 145 MG Tablet PO (08:00)
[2022-03-20 08:46] LABS: Bedside Glucose 184 mg/dL (74-106)
[2022-03-20] MEDS: Clopidogrel Bisulfate 75 MG Tablet PO (09:28)
[2022-03-20] MEDS: Spironolactone 25 MG Tablet PO (09:28)
[2022-03-20] MEDS: Isosorbide Mononitrate 60 MG Tablet PO (09:29)
[2022-03-20] MEDS: Carvedilol 6.25 MG Tablet PO ×2 (09:29→21:12)
[2022-03-20] MEDS: Empagliflozin 10 MG Tablet PO (09:29)
[2022-03-20] MEDS: FLUoxetine 20 MG Capsule PO (09:30)
[2022-03-20] MEDS: Furosemide 40 MG/4 ML Vial IV ×2 (09:30→18:12)
[2022-03-20] MEDS: Lisinopril 20 MG Tablet PO (09:31)
[2022-03-20] MEDS: Insulin Glargine-YFGN 100 UNIT/ML Pen 35 UNIT SC ×2 (09:37→21:38)
[2022-03-20] MEDS: 0.9% Saline Lock 10 ML Syringe IV ×3 (09:41→18:14)
--- NOTE | 2022-03-20 11:56 | PN.HOSP_ITS ---
Subjective Subjective Follow-up on Acute CHF/hypoxia: Patient was seen and examined.?His shortness of breath had improved. He is feeling very weak, he could not ambulate sufficiently with therapy. He was agreeable to discharge to custodial facility. Objective Data Objective Data Vital Signs: Vital Signs Temp Pulse Resp BP Pulse Ox O2 Del Method O2 Flow Rate 98.1 F 73 20 H 143/80 H 96 Nasal Cannula 2 03/20/22 09:26 03/20/22 10:46 03/20/22 10:46 03/20/22 09:26 03/20/22 09:26 03/20/22 09:26 03/20/22 09:26 Oxygen Flow Rate (L/min) [ 2 AMBULATING with Oxygen #1] Oxygen Flow Rate (L/min) [At 2 REST with Oxygen] Oxygen Flow Rate (L/min) [At 0 REST on Room Air] Oxygen Flow Rate (L/min) 2 Oxygen Delivery Method Nasal Cannula Weight: 131.8 kg Body Mass Index (BMI) 44.4 Intake & Output: Intake and Output for Last 24 Hours 03/18/22 03/19/22 03/20/22 23:59 23:59 23:59 Intake Total 1480 / 1700 1430 / 1670 350 / 350 Output Total 2350 / 2950 3300 / 5350 2800 / 2800 Balance -870 / -1250 -1870 / -3680 -2450 / -2450 Lab / Micro Data Result Diagrams: 03/20/22 05:48 03/20/22 05:48 Labs: Laboratory Results - last 24 hr 03/19/22 16:52: POC Glucose 244 H 03/19/22 22:18: POC Glucose 302 H 03/20/22 05:48: WBC 8.0, RBC 4.11 L, Hgb 8.7 L, Hct 31.3 L, MCV 76.2 L, MCH 21.2 L, MCHC 27.8 L, RDW Std Deviation 50.2 H, RDW Coeff of Galo 18.7 H, Plt Count 176, MPV 10.1, Immature Gran % (Auto) 0.500, Neut % (Auto) 89.5 H, Lymph % (Auto) 6.4 L, [place] % (Auto) 3.4, Eos % (Auto) 0.1, Baso % (Auto) 0.1, Absolute Neuts (auto) 7.2, Absolute Lymphs (auto) 0.51 L, Nucleated RBC % 0, Differential Comment SCANNED 03/20/22 05:48: PT 21.2 H, INR 1.9 03/20/22 05:48: Sodium 135 L, Potassium 4.5, Chloride 101, Carbon Dioxide 30.0, Anion Gap 4 L, BUN 37 H, Creatinine 1.52 H, Estim Creat Clear Calc 40.00, Est GFR (MDRD) Af Amer 58 L, Est GFR (MDRD) Non-Af 48 L, BUN/Creatinine Ratio 24.3 H , Glucose 225 H, Calcium 8.5, Total Bilirubin 0.90, AST 41 H, ALT 38, Alkaline Phosphatase 89, Total Protein 6.6, Albumin 2.7 L, Globulin 3.9, Albumin/Globulin Ratio 0.7 L 03/20/22 07:57: POC Glucose 184 H Micro: Microbiology 03/18/22 15:55 Stool Stool Occult Blood (JAYME) - Final Occult Blood Positive 03/17/22 13:20 Mucosa - Nasopharyngeal Respiratory Panel (PCR) - Final 03/16/22 15:30 Nasal Secretion SARS-CoV-2 & FLU Antigen (Rapid) - Final Physical Exam Narrative Physical exam: General: Alert, Oriented x3, Cooperative, morbidly obese, on 2 L of oxygen HEENT: Atraumatic Oral: Moist Mucosa Neck: Supple Lungs: Diminished to auscultation, scattered wheezes+ Cardiovascular: HS I+II, regular, no murmurs Abdomen: Bowel Sounds Present, Soft, Non Tender Extremities: No edema Skin: No rashes, No breakdown Neurological: Grossly intact Psych/Mental Status: Appropriate Assessment & Plan Assessment/Plan (1) CHF exacerbation: PLAN: Plan 1. Acute hypoxia secondary to acute on chronic heart failure with reduced ejection fraction, EF 55% Patient is currently on 2 L of oxygen, Encourage use of incentive spirometer. Wean off oxygen for SPO2 more than 94% Continue on Lasix 40mg IV BID, continue with CHF management 2. Acute COPD exacerbation, present on admission, patient with significant wheezes Continue on IV Solu-Medrol, continue breathing treatments 3. Severe anemia, iron deficient, hemoglobin is currently 8.7 Status post 2 units of packed RBCs on 03/17/22 Continue pantoprazole 40 mg p.o. twice daily 4. Hypokalemia, replaced 5. CAD/ischemic cardiomyopathy status post AICD/paroxysmal atrial fibrillation/hypertension Continue on aspirin, statin, Coreg, Plavix, Imdur, lisinopril, spironolactone for now INR is 1.9, continue Coumadin 6. Type II DM, blood sugars are fairly controlled Continue on Jardiance, Lantus, Premeal insulin as well as insulin sliding scale 7. Morbid obesity, BMI 43.7, lifestyle modification recommended 8. GERD, on PPI 9. History of DVT, INR is 1.9, increase Coumadin to 5 mg daily, repeat INR in a.m. 10. DVT prophylaxis?INR is therapeutic at 1.9, continue Coumadin Charges/Coding Visit Charges Inpatient E&M: 68965 Subs Hosp L3
--- NOTE | 2022-03-20 12:00 | CASEMGMT ---
Physician informed SW that patient needs to go to a nursing home facility. SW went to patient's room. Introduced self and role at [facility]. SW provided them with a list of nursing home facilities?including quality and resource use data and consistent with patient?s preferred geographic region, medical needs, and insurance network were provided from the [employer] Guide. SW explained Medicare coverage of SNF's. They expressed interest in [facility] TCU. SW told them SW will check with TCU on bed availability and let them know. SW did ask them to please pick 2-3 more choices in the event [facility] TCU cannot accept. SW made referral to [place] in TCU. She will have physician look over patient. Nargis Grimes PERSONNEL RECRUITERAlejandro HAMEED
[2022-03-20 12:35] LABS: Bedside Glucose 383 mg/dL (74-106)
[2022-03-20 12:35] LABS: Bedside Glucose 319 mg/dL (74-106)
--- NOTE | 2022-03-20 14:35 | CASEMGMT ---
ANA ROSA let patient and his know that SW is pretty sure TCU can take him, we are just waiting on a few things. ANA ROSA will let them know for sure tomorrow. Nargis Grimes HAT PRESSERAlejandro HAMEED
[2022-03-20 17:16] LABS: Bedside Glucose 299 mg/dL (74-106)
[2022-03-20] MEDS: Atorvastatin Calcium 80 MG Tablet PO (21:11)
[2022-03-20] MEDS: Pramipexole Di-HCl 0.5 MG Tablet PO (21:11)
[2022-03-20] MEDS: Nortriptyline 25 MG Capsule PO (21:12)
[2022-03-20] MEDS: Latanoprost 0.005% 1 Bottle 1 DRP EACH EYE (21:15)
[2022-03-21] VITALS (9 sets, daily range): BP systolic 119–121; BP diastolic 70–76; PULSE 63–71; RESP 16–18; TEMP 36.3–36.6; O2SAT 88–98
[2022-03-21 02:10] LABS: Bedside Glucose 335 mg/dL (74-106)
[2022-03-21] MEDS: Colestipol 1 GM TABLET PO (04:56)
[2022-03-21] MEDS: Gabapentin 300 MG Capsule 900 MG PO ×2 (06:11→13:44)
[2022-03-21] MEDS: Ipratropium/Albuterol Sulfate 3 ML AMPUL.NEB INHALATION ×2 (07:21→11:35)
[2022-03-21] MEDS: Insulin Lispro 100 UNIT/ML INSULN.PEN SC ×2 (08:23→12:16)
[2022-03-21] MEDS: 0.9% Saline Lock 10 ML Syringe IV ×2 (08:24→13:44)
[2022-03-21] MEDS: Insulin Glargine-YFGN 100 UNIT/ML Pen 35 UNIT SC (08:24)
[2022-03-21] MEDS: Insulin Lispro 100 UNIT/ML INSULN.PEN 20 UNIT SC ×2 (08:24→12:16)
[2022-03-21 08:25] LABS: ALB/GLOB Ratio 0.7 RATIO (0.9-2.4); AST(SGOT) 34 U/L (15-37); Alanine Aminotransfer ALT/SGPT 37 U/L (16-61); Albumin, Serum 2.9 g/dL (3.2-5.0); Alkaline Phosphatase 83 U/L (45-117); Anion Gap 6 (5-15); BUN 40 mg/dL (7-18); Calcium,Total 8.8 mg/dL (8.5-10.1); Chloride 101 mmol/L (98-107); Creatinine, Serum 1.38 mg/dL (0.70-1.30); EST Glomerular Filtration Rate 53 mL/min (>60); Est Glom Filt Rate - Afr Amer 64 mL/min (>60); Estimated Creatinine Clearance 44.06 ml/min; Glucose 198 mg/dL (74-106); Potassium 4.5 mmol/L (3.5-5.1); Protein, Total 6.9 g/dL (6.4-8.2); Sodium Level 133 mmol/L (136-145)
[2022-03-21] MEDS: Furosemide 40 MG/4 ML Vial IV (08:25)
[2022-03-21] MEDS: Fenofibrate 145 MG Tablet PO (08:30)
[2022-03-21] MEDS: Empagliflozin 10 MG Tablet PO (08:31)
[2022-03-21] MEDS: Carvedilol 6.25 MG Tablet PO (08:31)
[2022-03-21] MEDS: Isosorbide Mononitrate 60 MG Tablet PO (08:31)
[2022-03-21] MEDS: Lisinopril 20 MG Tablet PO (08:31)
[2022-03-21] MEDS: Aspirin E.C. 81 MG Tablet PO (08:31)
[2022-03-21] MEDS: Clopidogrel Bisulfate 75 MG Tablet PO (08:31)
[2022-03-21] MEDS: Spironolactone 25 MG Tablet PO (08:31)
[2022-03-21] MEDS: FLUoxetine 20 MG Capsule PO (08:33)
[2022-03-21 09:05] LABS: Bedside Glucose 181 mg/dL (74-106)
--- NOTE | 2022-03-21 10:56 | CASEMGMT ---
TCU can take patient when he is ready. SW called patient's and let her know. SW went to notify patient and he was sleeping. Plan: d/c to [facility] TCU under skilled level of care. Nargis HAMEED
--- NOTE | 2022-03-21 11:53 | CPS ---
pt placed on 2 lpm. Nurse aware of change
[2022-03-21 12:10] LABS: Bedside Glucose 318 mg/dL (74-106)
--- NOTE | 2022-03-21 12:41 | PCM.TXEXTCAR ---
Diet Diet Order/Speech Therapy: 03/17/22 01:53 Diet: Cardiac: Calorie-Controlled Dietary Modifications:: Sodium Restricted Is pt able to select menu?: Yes How many daily calories?: 1999 calorie Routine Orders/Code Status Suppository Type: Dulcolax 10mg Suppository Frequency: Daily PRN O2 Liters per Minute: 2 O2 Frequency: Continuous Keep PO Greater than or Equal to (%): 94 Routine Lab Work: CBC (within 3 days) and - (CMP within 3 days) Code Status: Full Code Therapies Physical Therapy: Eval and Treat Occupational Therapy: Eval and Treat Problem/Diagnosis (1) CHF exacerbation: Status: Chronic Code(s): I50.9 - Heart failure, unspecified Plan 1. Acute hypoxia secondary to acute on chronic heart failure with reduced ejection fraction, EF 55% 2. Acute COPD exacerbation, present on admission 3. Severe anemia, iron deficient 4. Hypokalemia 5. CAD/ischemic cardiomyopathy status post AICD 6. Paroxysmal atrial fibrillation 7. Hypertension 8. Type II DM 9. Morbid obesity 10. GERD 11. History of DVT Allergies/Procedures Done in Hospital Allergies ceftriaxone sodium [From Rocephin] Allergy (Verified 03/16/22 14:31) Rash milk Adverse Reaction (Verified 03/16/22 14:31) Diarrhea morphine Adverse Reaction (Verified 03/16/22 14:31) hallucinations Procedures: 2-D Echocardiogram Type of Care/Length of Stay Estimated LOS: Convalescent Care Less Than 30 days Type of Care Needed: Skilled Rehab Potential: Good Prognosis: Good Additional Orders/Day of Discharge Day of Discharge: 03/21/22 Dietary and Speech Recommendations Dietitian Recommendations/Changes: Continue 1800 CCD, Cardiac diet Discharge Plan Admission Admit Date/Time: 03/16/22 17:12 Primary Reason for Your Visit: Acute CHF/Acute COPD exacerbation Attending Provider: Bailey Schilling Primary Care Provider: Tomás Patino Consulting Providers: Ethan Christain Instructions Additional Instructions / Restrictions: Encourage use of incentive spirometer Discharge Orders/Prescriptions Prescriptions: New sennosides-docusate sodium [Stool Softener-Stimulant Laxat] 8.6-50 mg Tablet 2 tab PO BID PRN PRN (Reason: Constipation) Qty: 0 0RF insulin glargine-yfgn 100 unit/mL (3 mL) Insulin Pen 35 unit subcut BID Qty: 0 0RF prednisone 10 mg tablet 40 mg PO DAILY 5 Days Qty: 20 0RF Continued gabapentin 300 mg capsule 900 mg PO TID lisinopril 20 mg tablet 20 mg PO DAILY Hold Instructions: Hypotension Label Comments: blood pressure warfarin 3 mg tablet 3 mg PO QMWF Rx Instructions: Managed by PCP warfarin 6 mg tablet 6 mg PO SUTUTHSA Rx Instructions: Managed by PCP albuterol sulfate 90 mcg/actuation HFA aerosol inhaler 2 puff inhalation Q4H PRN (Reason: diabetes) pz-2-mgx-epa-fish oil-vit D3 120 mg-180 mg -1,000 unit capsule 1 cap PO DAILY clopidogrel 75 MG tablet 75 mg PO DAILY Label Comments: blood thinner insulin lispro 100 unit/mL solution 23 unit subcut TIDCM Label Comments: diabetes Rx Instructions: plus sliding scale latanoprost 2.5 ML drops 1 drp EACH EYE TID aspirin 81 MG tablet 81 mg PO DAILY@0800 colestipol 1 GM tablet 1 g PO BID fenofibrate nanocrystallized 145 MG tablet 145 mg PO DAILY ropinirole 0.5 mg tablet 1 mg PO QHS nortriptyline 25 mg Capsule 25 mg PO QHS fluoxetine 20 mg Tablet 20 mg PO DAILY Trulicity 3 mg/0.5 mL Pen Injector 3 mg SUBCUT QWEEK Rx Instructions: takes on Thursday famotidine 20 mg Tablet 20 mg PO QHS ondansetron 4 mg Tablet,Disintegrating 4 mg PO Q6H PRN (Reason: Nausea) isosorbide mononitrate 60 mg Tablet Extended Release 24 Hr 60 mg PO DAILY nitroglycerin 0.4 mg tablet, sublingual 0.4 mg SL Q5M PRN (Reason: Chest Pain) Qty: 25 3RF rosuvastatin 40 mg tablet 40 mg PO QHS Qty: 90 3RF spironolactone 25 mg tablet 25 mg PO DAILY Qty: 90 4RF furosemide 40 mg tablet 80 mg PO BID Qty: 360 3RF Farxiga 10 mg tablet 5 mg PO DAILY carvedilol 6.25 mg tablet 6.25 mg PO BID Qty: 180 3RF Rx Instructions: must administer with a meal/food Changed pantoprazole 40 mg tablet,delayed release (DR/EC) 40 mg PO BIDCM Qty: 90 3RF Discontinued Basaglar KwikPen U-100 Insulin 100 unit/mL (3 mL) insulin pen 33 unit subcut BID Referrals / Follow Up: Tomás Patino MD [Primary Care Provider] - Disposition Disposition (needs filled in before D/C Order can be placed): Intermediate Facility
--- NOTE | 2022-03-21 12:53 | DS.PCM_ITS ---
Providers Date of Admission: 03/16/22 Date of Discharge: 03/21/22 Primary Care Physician: Dr. Tomás Patino MD Reason For Visit: CHF Diagnosis Discharge Diagnosis (1) CHF exacerbation: Status: Chronic Code(s): I50.9 - Heart failure, unspecified Plan 1. Acute hypoxia secondary to acute on chronic heart failure with reduced ejection fraction, EF 55% 2. Acute COPD exacerbation, present on admission 3. Severe anemia, iron deficient 4. Hypokalemia 5. CAD/ischemic cardiomyopathy status post AICD 6. Paroxysmal atrial fibrillation 7. Hypertension 8. Type II DM 9. Morbid obesity 10. GERD 11. History of DVT Medications at Discharge Home Medications clopidogrel 75 mg tablet 75 mg PO DAILY anti platelet 12/04/14 aspirin 81 mg tablet,delayed release 81 mg PO DAILY@0800 [facility] 11/17/18 latanoprost 0.005 % eye drops 1 drp EACH EYE TID glaucoma 11/17/18 colestipol 1 gram tablet 1 g PO BID cholesterol 12/02/18 fenofibrate nanocrystallized 145 mg tablet 145 mg PO DAILY elevated triglycerides 12/02/18 gabapentin 300 mg capsule 900 mg PO TID RLS 10/27/19 lisinopril 20 mg tablet 20 mg PO DAILY blood pressure 06/06/20 nitroglycerin 0.4 mg sublingual tablet 0.4 mg sublingual Q5M PRN Chest Pain #25 tabs 10/08/20 dulaglutide 3 mg/0.5 mL subcutaneous pen injector (Trulicity) 3 mg subcut QWEEK diabetes 04/21/21 fluoxetine 20 mg tablet 20 mg PO DAILY mood 04/21/21 nortriptyline 25 mg capsule 25 mg PO QHS depression 04/21/21 rosuvastatin 40 mg tablet 40 mg PO QHS Cholesterol #90 tabs 07/08/21 spironolactone 25 mg tablet 25 mg PO DAILY diuretic #90 tabs 07/30/21 warfarin 3 mg tablet 3 mg PO QMWF blood thinner 09/11/21 warfarin 6 mg tablet 6 mg PO SUTUTHSA blood thinner 09/11/21 furosemide 40 mg tablet 80 mg PO BID diuretic #360 tabs 11/29/21 albuterol sulfate 90 mcg/actuation aerosol inhaler 2 puff inhalation Q4H PRN diabetes 12/10/21 insulin lispro 100 unit/mL subcutaneous solution 23 unit subcut TIDCM diabetes 12/10/21 omega-3-dha 120 mg-epa 180 mg-fish oil-vitamin D3 1,000 unit capsule 1 cap PO DAILY supplement 12/10/21 ropinirole 0.5 mg tablet 1 mg PO QHS legs 12/10/21 dapagliflozin 10 mg tablet (Farxiga) 5 mg PO DAILY ordered by PCP 12/23/21 famotidine 20 mg tablet 20 mg PO QHS stomach 03/16/22 isosorbide mononitrate 60 mg tablet,extended release 24 hr 60 mg PO DAILY blood pressure 03/16/22 ondansetron 4 mg disintegrating tablet 4 mg PO Q6H PRN Nausea 03/16/22 carvedilol 6.25 mg tablet 6.25 mg PO BID BP 03/21/22 insulin glargine-yfgn 100 unit/mL (3 mL) subcutaneous pen 35 unit subcut BID Diabetes 03/21/22 pantoprazole 40 mg tablet,delayed release 40 mg PO BIDCM stomach pill #90 tabs 03/21/22 prednisone 10 mg tablet 40 mg PO DAILY Check with primary doctor 03/21/22 sennosides 8.6 mg-docusate sodium 50 mg tablet (Stool Softener-Stimulant Laxative) 2 tab PO BID PRN PRN Constipation #0 tabs 03/21/22 Hospital Course Operations None Procedures 2-D Echocardiogram Summary of Care Provided Minutes Spent on Discharge: 35 Hospital Course: 76 y/o with PMHx of CAD, ischemic cardiomyopathy, EF of 45%,s/p AICD placement who comes in with progressive shortness of breath, worse with exertion, worse with exertion, significant weight gain. Patient initially was admitted to progressive care unit and managed as acute CHF exacerbation. He however became more dyspneic, started on breathing treatments, IV Solu-Medrol. Repeat 2D echo showed an EF of 55%. Patient had iron deficiency anemia and had 2 units of packed RBCs transfusion 03/17/2020. Patient INR was supratherapeutic at that time. Coumadin was put on hold for a while. He was later on resumed. Patient generally continue to improve, initially was cleared for discharge to [facility] currently did not he was reluctant. He finally agreed to go for subacute rehab. He was discharged on his home Lasix 80 mg p.o. twice daily as well as a short course of prednisone. He was encouraged to use his incentive spirometer Physical Exam Narrative Physical exam: General: Alert, Oriented x3, Cooperative, morbidly obese, on 2 L of oxygen HEENT: Atraumatic Oral: Moist Mucosa Neck: Supple Lungs: Diminished to auscultation, scattered wheezes+ Cardiovascular: HS I+II, regular, no murmurs Abdomen: Bowel Sounds Present, Soft, Non Tender Extremities: No edema Skin: No rashes, No breakdown Neurological: Grossly intact Psych/Mental Status: Appropriate Weight / BMI Weight Weight: 128.5 kg Body Mass Index (BMI) 44.4 ABG / Lab / Microbiology Data Result Diagrams: 03/20/22 05:48 03/21/22 06:50 Laboratory: Laboratory Results - last 24 hr 03/20/22 16:24: POC Glucose 299 H 03/20/22 21:37: POC Glucose 335 H 03/21/22 06:50: Sodium 133 L, Potassium 4.5, Chloride 101, Carbon Dioxide 26.0, Anion Gap 6, BUN 40 H, Creatinine 1.38 H, Estim Creat Clear Calc 44.06, Est GFR (MDRD) Af Amer 64, Est GFR (MDRD) Non-Af 53 L, BUN/Creatinine Ratio 29.0 H, Glucose 198 H, Calcium 8.8, Total Bilirubin 0.90, AST 34, ALT 37, Alkaline Phosphatase 83, Total Protein 6.9, Albumin 2.9 L, Globulin 4.0, Albumin/Globulin Ratio 0.7 L 03/21/22 08:23: POC Glucose 181 H 03/21/22 11:35: POC Glucose 318 H Microbiology: Microbiology 03/21/22 11:35 Nasal Secretion SARS-CoV-2 Antigen (Rapid) - Final 03/18/22 15:55 Stool Stool Occult Blood (JAYME) - Final Occult Blood Positive 03/17/22 13:20 Mucosa - Nasopharyngeal Respiratory Panel (PCR) - Final 03/16/22 15:30 Nasal Secretion SARS-CoV-2 & FLU Antigen (Rapid) - Final D/C Instructions Discharge Diet: Low fat / Low cholesterol, 6 Cup Fluid Restriction and 2000 mg Sodium Diet Meaningful Use Info Meaningful Use Diagnoses (Choose all that apply): CHF CHF NIYA/ARB ordered at discharge?: No Reason NIYA/ARB not ordered?: Worsening renal disease Documented LVEF (%): 55 Discharge Plan Admission Admit Date/Time: 03/16/22 17:12 Primary Reason for Your Visit: Acute CHF/Acute COPD exacerbation Attending Provider: Bailey Schilling Primary Care Provider: Tomás Patino Consulting Providers: Ethan Christian Instructions Additional Instructions / Restrictions: Encourage use of incentive spirometer Discharge Orders/Prescriptions Prescriptions: New sennosides-docusate sodium [Stool Softener-Stimulant Laxat] 8.6-50 mg Tablet 2 tab PO BID PRN PRN (Reason: Constipation) Qty: 0 0RF Continued gabapentin 300 mg capsule 900 mg PO TID lisinopril 20 mg tablet 20 mg PO DAILY Hold Instructions: Hypotension Label Comments: blood pressure warfarin 3 mg tablet 3 mg PO QMWF Rx Instructions: Managed by PCP warfarin 6 mg tablet 6 mg PO SUTUTHSA Rx Instructions: Managed by PCP albuterol sulfate 90 mcg/actuation HFA aerosol inhaler 2 puff inhalation Q4H PRN (Reason: diabetes) zf-5-goe-epa-fish oil-vit D3 120 mg-180 mg -1,000 unit capsule 1 cap PO DAILY clopidogrel 75 MG tablet 75 mg PO DAILY Label Comments: blood thinner insulin lispro 100 unit/mL solution 23 unit subcut TIDCM Label Comments: diabetes Rx Instructions: plus sliding scale latanoprost 2.5 ML drops 1 drp EACH EYE TID aspirin 81 MG tablet 81 mg PO DAILY@0800 colestipol 1 GM tablet 1 g PO BID fenofibrate nanocrystallized 145 MG tablet 145 mg PO DAILY ropinirole 0.5 mg tablet 1 mg PO QHS nortriptyline 25 mg Capsule 25 mg PO QHS fluoxetine 20 mg Tablet 20 mg PO DAILY Trulicity 3 mg/0.5 mL Pen Injector 3 mg SUBCUT QWEEK Rx Instructions: takes on Thursday famotidine 20 mg Tablet 20 mg PO QHS ondansetron 4 mg Tablet,Disintegrating 4 mg PO Q6H PRN (Reason: Nausea) isosorbide mononitrate 60 mg Tablet Extended Release 24 Hr 60 mg PO DAILY nitroglycerin 0.4 mg tablet, sublingual 0.4 mg SL Q5M PRN (Reason: Chest Pain) Qty: 25 3RF rosuvastatin 40 mg tablet 40 mg PO QHS Qty: 90 3RF spironolactone 25 mg tablet 25 mg PO DAILY Qty: 90 4RF furosemide 40 mg tablet 80 mg PO BID Qty: 360 3RF Farxiga 10 mg tablet 5 mg PO DAILY Changed pantoprazole 40 mg tablet,delayed release (DR/EC) 40 mg PO BIDCM Qty: 90 3RF Discontinued Basaglar KwikPen U-100 Insulin 100 unit/mL (3 mL) insulin pen 33 unit subcut BID No Action carvedilol 6.25 mg tablet 6.25 mg PO BID Rx Instructions: must administer with a meal/food prednisone 10 mg tablet 40 mg PO DAILY insulin glargine-yfgn 100 unit/mL (3 mL) insulin pen 35 unit subcut BID Referrals / Follow Up: Tomás Patino MD [Primary Care Provider] - Friend,DO Allen [Med Staff - Active Staff] - Within 2 Weeks Disposition Disposition (needs filled in before D/C Order can be placed): Intermediate Facility
--- NOTE | 2022-03-21 14:23 | NURSING ---
Called report to [facility] on TCU
== END 2022-03-21 14:30 | disposition skilled nursing facility (03) | DRG 291 ==
LOC: ED 17:20 → PCU 18:03
PROVIDERS: Family Medicine; Admitting Provider Internal Medicine; Emergency Provider Emergency Medicine; PCP Family Medicine; Visit Provider Internal Medicine
DX: I11.0 Hypertensive heart disease with heart failure (principal); I50.23 Acute on chronic systolic (congestive) heart failure; J44.1 Chronic obstructive pulmonary disease with (acute) exacerbation; Z68.41 Body mass index [BMI] 40.0-44.9, adult; E11.51 Type 2 diabetes mellitus with diabetic peripheral angiopathy without gangrene; E66.01 Morbid (severe) obesity due to excess calories; E78.5 Hyperlipidemia, unspecified; D50.9 Iron deficiency anemia, unspecified; Z79.01 Long term (current) use of anticoagulants; Z79.4 Long term (current) use of insulin; I48.0 Paroxysmal atrial fibrillation; K21.9 Gastro-esophageal reflux disease without esophagitis; I25.5 Ischemic cardiomyopathy; I25.10 Atherosclerotic heart disease of native coronary artery without angina pectoris; E87.6 Hypokalemia; Z95.810 Presence of automatic (implantable) cardiac defibrillator; Z86.16 Personal history of COVID-19; Z82.5 Family history of asthma and other chronic lower respiratory diseases; Z87.891 Personal history of nicotine dependence; Z79.02 Long term (current) use of antithrombotics/antiplatelets; Z66 Do not resuscitate; Z79.82 Long term (current) use of aspirin; Z86.718 Personal history of other venous thrombosis and embolism
CPT/HCPCS: 36415; 71045; 80048; 80053; 82274; 82728; 82962; 83540; 83550; 83880; 84484; 85025; 85610; 86644; 86850; 86900; 86901; 86920; 86922; 87426; 87428; 87633; 93005; 93306; 94640; 97162; 97166; 97530; 97535; 99284; J7040; P9016; P9040; Q9957; A4216; C8929; J1940

== ENCOUNTER 2022-03-21 15:48 | Inpatient (IN) | payer MEDICARE, OTHER, SELFPAY ==
[2017-11-06 10:25] VITALS: BMI 37.2
[2022-03-21 15:17] VITALS: BP 138/64; PULSE 72; RESP 21; TEMP 36.3; O2SAT 93; BMI 42.7
[2022-03-21 17:15] LABS: Bedside Glucose 261 mg/dL (74-106)
[2022-03-21] MEDS: Insulin Lispro 100 UNIT/ML INSULN.PEN 23 UNIT SC (18:07)
[2022-03-21] MEDS: Insulin Glargine-YFGN 100 UNIT/ML Pen 35 UNIT SC (18:07)
[2022-03-21] MEDS: Carvedilol 6.25 MG Tablet PO (18:08)
[2022-03-21] MEDS: Pantoprazole Sodium 40 MG Tablet PO (18:08)
[2022-03-21] MEDS: Colestipol 1 GM TABLET PO (18:08)
[2022-03-21] MEDS: Furosemide 80 MG Tablet PO (18:08)
[2022-03-21 19:20] VITALS: O2SAT 94
[2022-03-21 21:45] LABS: Bedside Glucose 251 mg/dL (74-106)
[2022-03-21] MEDS: Gabapentin 300 MG Capsule 900 MG PO (21:53)
[2022-03-21] MEDS: Latanoprost 0.005% 1 Bottle 1 DRP EACH EYE (21:53)
[2022-03-21] MEDS: Atorvastatin Calcium 80 MG Tablet PO (21:59)
[2022-03-21] MEDS: Pramipexole Di-HCl 0.5 MG Tablet PO (21:59)
[2022-03-21] MEDS: Nortriptyline 25 MG Capsule PO (21:59)
[2022-03-21] MEDS: Famotidine 20 MG Tablet PO (21:59)
[2022-03-21 22:30] VITALS: PULSE 68; RESP 20; O2SAT 94
[2022-03-22] MEDS: Empagliflozin 10 MG Tablet PO (06:14)
[2022-03-22] MEDS: Isosorbide Mononitrate 60 MG Tablet PO (06:14)
[2022-03-22] MEDS: Spironolactone 25 MG Tablet PO (06:14)
[2022-03-22] MEDS: Carvedilol 6.25 MG Tablet PO ×2 (06:14→17:35)
[2022-03-22] MEDS: FLUoxetine 20 MG Capsule PO (06:14)
[2022-03-22] MEDS: Furosemide 80 MG Tablet PO (06:14)
[2022-03-22] MEDS: Colestipol 1 GM TABLET PO ×2 (06:14→17:35)
[2022-03-22] MEDS: Lisinopril 20 MG Tablet PO (06:14)
[2022-03-22] MEDS: Insulin Glargine-YFGN 100 UNIT/ML Pen 35 UNIT SC ×2 (06:15→17:36)
[2022-03-22] MEDS: Clopidogrel Bisulfate 75 MG Tablet PO (06:15)
[2022-03-22] MEDS: Gabapentin 300 MG Capsule 900 MG PO ×3 (06:19→21:59)
[2022-03-22 06:26] LABS: Bedside Glucose 154 mg/dL (74-106)
[2022-03-22] MEDS: Latanoprost 0.005% 1 Bottle 1 DRP EACH EYE ×3 (06:26→22:00)
[2022-03-22 06:44] LABS: Absolute Lymphocyte Count 0.73 X10^3/uL (0.83-4.51); Absolute Neutrophil Count 8.9 X10^3/uL (2.0-7.7); Basophil# 0.01 X10^3/uL; Basophil% 0.1 % (0-1); Hematocrit 34.1 % (40-54); Hemoglobin 9.4 g/dL (13.0-16.5); Lymphocyte # 0.73 X10^3/ul (0.83-4.51); Lymphocyte % 6.8 % (19-41); Mean Corp Hgb Conc 27.6 g/dL (32-36); Mean Corpuscular Hgb 21.1 pg (27.0-32.0); Mean Corpuscular Volume 76.6 fL (80-94); Mean Platelet Vol. 9.6 fl (6.2-12.0); Monocyte# 1.01 X10^3/uL; Monocyte% 9.4 % (0-10); NRBC Flagged by Analyzer 0 % (0-5); Neutrophil # 8.92 X10^3/uL (2.7-7.7); Neutrophil % 83.2 % (47-70); POSITIVE MORPHOLOGY YES; Platelet Count 193 K/mm3 (150-450); RBC Distribution Width CV 20.1 % (11.6-14.6); RBC Distribution Width SD 52.9 fl (35.1-43.9); Red Blood Count 4.45 M/mm3 (4.6-6.2); White Blood Count 10.7 K/mm3 (4.4-11.0)
[2022-03-22 06:47] LABS: Differential Indicated SCAN CRITERIA MET
[2022-03-22 06:54] LABS: International Normalized Ratio 1.7; Prothrombin Time (Protime)PT. 19.9 SECONDS (11.7-14.9)
[2022-03-22 07:03] LABS: Anion Gap 5 (5-15); BUN 48 mg/dL (7-18); BUN/Creat Ratio 31.2 RATIO (10-20); Calcium,Total 9.1 mg/dL (8.5-10.1); Chloride 97 mmol/L (98-107); Creatinine, Serum 1.54 mg/dL (0.70-1.30); EST Glomerular Filtration Rate 47 mL/min (>60); Est Glom Filt Rate - Afr Amer 57 mL/min (>60); Estimated Creatinine Clearance 39.48 ml/min; Glucose 161 mg/dL (74-106); Potassium 4.3 mmol/L (3.5-5.1); Sodium Level 135 mmol/L (136-145)
[2022-03-22 07:14] LABS: Anisocytosis 2+; Differential Comment SCANNED; Macrocytosis 1+; Ovalocyte RARE; Polychromasia RARE
[2022-03-22 07:15] LABS: Microcytosis 2+
--- NOTE | 2022-03-22 07:46 | NURSING ---
Pt will be bringing in own Trulicity usually takes on Thursday d/t the weather he is unsure if anyone will be in to see him.
[2022-03-22] MEDS: Insulin Lispro 100 UNIT/ML INSULN.PEN 23 UNIT SC ×3 (07:58→17:38)
[2022-03-22] MEDS: Aspirin E.C. 81 MG Tablet PO (07:59)
[2022-03-22] MEDS: Fenofibrate 145 MG Tablet PO (07:59)
[2022-03-22] MEDS: predniSONE 20 MG Tablet 40 MG PO (07:59)
[2022-03-22] MEDS: Pantoprazole Sodium 40 MG Tablet PO (08:01)
[2022-03-22] MEDS: Tuberculin,Purif.prot.deriv. 50 TU/ML Vial 0.1 ML ID (10:03)
--- NOTE | 2022-03-22 11:05 | HP.PCM_ITS ---
HPI - General General Date of Admission: 03/21/22 Date of Service: 03/22/22 Chief Complaint: debility HPI Narrative Tim LONG, is a 76-year-old M with a past medical history of coronary artery disease, ischemic cardiomyopathy with an EF of 45%, history of AICD placement diabetes mellitus type 2, hypertension, history of deep vein thrombosis, hyperlipidemia paroxysmal atrial flutter, PVD and obesity who was admitted to [facility] on 03/16/22 with progressive shortness of breath over the preceding week secondary to a acute on chronic congestive heart failure in conjunction with acute exacerbation COPD. He was diuresed and treated with steroids and bronchodilators and improved. He was transferred to TCU on 03/20/22 for strengthening prior to going home. He was discharged on Lasix 80 mg BID and a short course of oral Prednisone. Afebrile VSS Maintaining appropriate oxygen saturation on RA but, on a NC? Discussed with nursing - no problems that need addressed. Will start Trulicity when his family brings the medication in. Reviewed the therapy notes Medication list reviewed. All lab from this AM was personally reviewed. Hemoglobin is 9.4 today, up from 8.7 on 03/20/2022. White blood cell count and platelets are within normal limits. MCV is low at 76.6 and he has 2+ anisocytosis, 2+ microcytosis and 1+ macrocytosis. Recent iron studies showed low iron at 15 with a very low iron saturation of 3.4 and a ferritin of 18. Stool is Hemoccult positive and he is on chronic anticoagulation with warfarin. In addition to warfarin he takes aspirin and Plavix daily. INR today is low at 1.7. Warfarin was held in the hospital for supratherapeutic INR. He tells me that he had a colonoscopy 4 years ago and it was OK to his knowledge. Has had PUD in the past but, many years ago. Denies diarrhea and denies epigastric pain but, he feels nauseated today. No emesis. He also is c/o FOURNIER. He is able to lie on his side to sleep at night. Denies CP. 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 Feeling lightheaded with standing. Poor intake. FORMERLY [facility], [facility]–1983 Medical History (Updated 03/22/22 @ 12:[address] 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 HFrEF (heart failure with reduced ejection fraction) History of deep vein thrombosis (DVT) of lower extremity History of non-ST elevation myocardial infarction (NSTEMI) (11/05/16) Hyperlipidemia Ischemic cardiomyopathy Localized edema Nondisp fracture of fifth left metatarsal bone with routine healing Nonrheumatic tricuspid (valve) insufficiency Nonsustained ventricular tachycardia Normocytic anemia Obesity 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 Other specified peripheral vascular diseases Paroxysmal atrial flutter Peripheral vascular occlusive disease Type 2 diabetes mellitus Ulcer of left lower extremity with fat layer exposed Ulcer of right lower extremity Ulcer of right lower extremity with fat layer exposed Ulcer of right lower extremity with fat layer exposed Uncontrolled type 2 diabetes mellitus Walking difficulty due to ankle and foot Xerosis cutis Home Medications clopidogrel 75 mg tablet 75 mg PO DAILY anti platelet 12/04/14 [History Last Taken 03/16/22] aspirin 81 mg tablet,delayed release 81 mg PO DAILY@0800 [facility] 11/17/18 [History Last Taken 03/16/22] latanoprost 0.005 % eye drops 1 drp EACH EYE TID glaucoma 11/17/18 [History Last Taken 03/16/22] colestipol 1 gram tablet 1 g PO BID cholesterol 12/02/18 [History Last Taken 03/16/22] fenofibrate nanocrystallized 145 mg tablet 145 mg PO DAILY elevated triglycerides 12/02/18 [History Last Taken 03/16/22] gabapentin 300 mg capsule 900 mg PO TID RLS 10/27/19 [History Last Taken 03/16/22] lisinopril 20 mg tablet 20 mg PO DAILY blood pressure 06/06/20 [History Last Taken 03/16/22] nitroglycerin 0.4 mg sublingual tablet 0.4 mg sublingual Q5M PRN Chest Pain #25 tabs 10/08/20 [Rx Last Taken Unknown] dulaglutide 3 mg/0.5 mL subcutaneous pen injector (Trulicity) 3 mg subcut QWEEK diabetes 04/21/21 [History Last Taken 03/09/22] fluoxetine 20 mg tablet 20 mg PO DAILY mood 04/21/21 [History Last Taken 03/16/22] nortriptyline 25 mg capsule 25 mg PO QHS depression 04/21/21 [History Last Taken 03/15/22] rosuvastatin 40 mg tablet 40 mg PO QHS Cholesterol #90 tabs 07/08/21 [Rx Last Taken 03/15/22] spironolactone 25 mg tablet 25 mg PO DAILY diuretic #90 tabs 07/30/21 [Rx Last Taken 03/16/22] warfarin 3 mg tablet 3 mg PO QMWF blood thinner 09/11/21 [History Last Taken 03/14/22] warfarin 6 mg tablet 6 mg PO SUTUTHSA blood thinner 09/11/21 [History Last Taken 03/16/22] furosemide 40 mg tablet 80 mg PO BID diuretic #360 tabs 11/29/21 [Rx Last Taken 03/16/22] albuterol sulfate 90 mcg/actuation aerosol inhaler 2 puff inhalation Q4H PRN diabetes 12/10/21 [History Last Taken 03/16/22] insulin lispro 100 unit/mL subcutaneous solution 23 unit subcut TIDCM diabetes 12/10/21 [History Last Taken 03/16/22] omega-3-dha 120 mg-epa 180 mg-fish oil-vitamin D3 1,000 unit capsule 1 cap PO DAILY supplement 12/10/21 [History Last Taken 03/16/22] ropinirole 0.5 mg tablet 1 mg PO QHS legs 12/10/21 [History Last Taken 03/15/22] dapagliflozin 10 mg tablet (Farxiga) 5 mg PO DAILY ordered by PCP 12/23/21 [History Last Taken 03/16/22] famotidine 20 mg tablet 20 mg PO QHS stomach 03/16/22 [History Last Taken 03/15/22] isosorbide mononitrate 60 mg tablet,extended release 24 hr 60 mg PO DAILY blood pressure 03/16/22 [History Last Taken 03/16/22] ondansetron 4 mg disintegrating tablet 4 mg PO Q6H PRN Nausea 03/16/22 [History Last Taken Unknown] carvedilol 6.25 mg tablet 6.25 mg PO BID BP 03/21/22 [History Last Taken Unknown ] insulin glargine-yfgn 100 unit/mL (3 mL) subcutaneous pen 35 unit subcut BID Diabetes 03/21/22 [History Last Taken Unknown] pantoprazole 40 mg tablet,delayed release 40 mg PO BIDCM stomach pill #90 tabs 03/21/22 [Rx Last Taken 03/16/22] prednisone 10 mg tablet 40 mg PO DAILY Check with primary doctor 03/21/22 [History Last Taken Unknown] sennosides 8.6 mg-docusate sodium 50 mg tablet (Stool Softener-Stimulant Laxative) 2 tab PO BID PRN PRN Constipation #0 tabs 03/21/22 [Rx Last Taken Unknown] Allergy/AdvReac Type Severity Reaction Status Date / Time ceftriaxone sodium Allergy Rash Verified 03/16/22 14:31 [From Rocephin] milk AdvReac Diarrhea Verified 03/16/22 14:31 morphine AdvReac hallucinati Verified 03/16/22 14:31 ons Family History Father , Age 78 Prostate cancer Mother , Age 80 CVA (cerebral vascular accident) Sister Congestive heart failure Diabetes Hypertension Hyperlipidemia Atrial fibrillation CAD (coronary artery disease) Cardiac defibrillator in situ Sister Breast cancer Sister Breast cancer Brother CAD (coronary artery disease) Myocardial infarction Diabetes Brother Diabetes Brother , Age 74 COPD (chronic obstructive pulmonary disease) Sister Alive and well Surgical History H/O colonoscopy with polypectomy (11/2017) History of angioplasty of peripheral vessel History of coronary artery stent placement (12/15/14) History of detached retina repair History of electrophysiologic study (11/23/02) History of implantable cardiac defibrillator (ICD) (11/19/17) History of left heart catheterization (12/06/18) History of radiofrequency ablation procedure for cardiac arrhythmia (07/01/11) ICD (implantable cardioverter-defibrillator) in place Social History household members: spouse housing: house current occupational status: retired pets and animals: Yes (2 dogs, 2 cats) Smoking Status: Former smoker pack-years: 20 how long ago did patient quit smokin years ago alcohol intake: never caffeine: Yes Type: coffee Number of servings: 1 ROS Constitutional Constitutional: Reports anorexia, fatigue and weakness; Denies change in weight, chills, fever(s) or night sweats Eyes Eyes: Denies blurry vision, change in vision, eye pain or loss of vision ENT HEENT: Denies abnormal hearing, dysphagia, headache(s), hearing loss, nasal congestion or sore throat Cardiovascular Cardiovascular: Reports dyspnea on exertion, lightheadedness and weakness in extremities; Denies chest pain, edema, orthopnea, palpitations, paroxysmal nocturnal dyspnea or syncope Respiratory/Chest Respiratory/Chest: Reports cough, dyspnea, dyspnea on exertion, shortness of breath with exertion and wheezing; Denies shortness of breath at rest Gastrointestinal Gastrointestinal: Reports nausea; Denies abdominal pain, constipation, diarrhea, dyspepsia, hematemesis, hematochezia or vomiting Genitourinary Genitourinary: Denies dysuria, hematuria, nocturia, urinary frequency, urinary hesitancy, urinary incontinence or urinary urgency Musculoskeletal Musculoskeletal: Denies back pain, joint pain, joint swelling or neck pain Neurologic Neurologic: Denies confusion, disequilibrium, dizziness, focal weakness, headache(s), paresthesias, seizures or tremor(s) Psychiatric Psychiatric: Denies anxiety, depression, homicidal ideation or suicidal ideation Endocrine Endocrinology: Denies change in body appearance, polydipsia or polyuria Hematologic/Lymphatic Hematologic/Lymphatic: Denies easy bleeding, easy bruising or lymphadenopathy Allergic/Immunologic Allergic/Immunologic: Denies rhinitis, eczemia or asthma Vital Signs Vital Signs Vital Signs: 03/21/22 15:17 03/21/22 22:30 03/21/22 19:20 Temperature 97.3 F L Temperature Source Temporal Pulse Rate 72 68 Pulse Rhythm Regular Pulse Strength Normal (2+) Respiratory Rate 21 H 20 H Respiratory Effort Normal Non-Labored Respiratory Depth Normal Respiratory Pattern Normal Blood Pressure 138/64 H Blood Pressure Mean 88 Blood Pressure Source Monitor Blood Pressure Position Sitting Blood Pressure Location Right Arm Pulse Ox 93 94 94 Oxygen Delivery Method Nasal Cannula Nasal Cannula Nasal Cannula Oxygen Flow Rate (L/min) 2 2 2 03/22/22 09:04 03/22/22 08:40 Temperature Temperature Source Pulse Rate Pulse Rhythm Pulse Strength Respiratory Rate Respiratory Effort Respiratory Depth Respiratory Pattern Blood Pressure Blood Pressure Mean Blood Pressure Source Blood Pressure Position Blood Pressure Location Pulse Ox Oxygen Delivery Method Oxygen Flow Rate (L/min) 3 3 Weight Weight: 280 lb 14.4 oz Body Mass Index (BMI) 42.7 Physical Exam Const alert and oriented x3 Constitutional Narrative: Sitting in the recliner at the bedside eating his lunch.......not eating much. Looks as though he does not feel well. Good color in his face though. General Appearance: cooperative and well kempt HEENT normocephalic HEENT Narrative: MM are dry Eyes conjunctivae normal Eyes Narrative: No scleral icterus Neck supple Resp normal respiratory effort Resp Narrative: Scattered mild exp wheeze, mostly in the bases with no rales. Not tachypneic. No accessory muscle use. Coughs when taking deep breaths. Does not have a IS in the room. He is using a MDI and is not on aerosols. No conversational dyspnea. Effort and Inspection: symmetric chest movement Cardio regular rate, regular rhythm, S1 normal heart sound, S2 normal heart sound, no murmurs, no rub and no gallops GI normal to inspection, nondistended, normoactive bowel sounds, soft to palpation and non-tender GI Narrative: obese, no guarding with palpation. BS's are not hyperactive. Extremity no calf tenderness and no pedal edema Skin Skin Narrative: skin is warm and dry General Skin Exam: no breakdown Rashes: no rashes Neuro oriented x3, CN's II-XII intact bilaterally and moves all extremities Psych mental status grossly normal, thought process normal, cooperative and affect normal Results Lab / Micro Data Result Diagrams: 03/22/22 06:28 03/22/22 06:28 Labs: Laboratory Results - last 24 hr 03/21/22 16:50: POC Glucose 261 H 03/21/22 21:20: POC Glucose 251 H 03/22/22 05:59: POC Glucose 154 H 03/22/22 06:28: WBC 10.7, RBC 4.45 L, Hgb 9.4 L, Hct 34.1 L, MCV 76.6 L, MCH 21.1 L, MCHC 27.6 L, RDW Std Deviation 52.9 H, RDW Coeff of Galo 20.1 H, Plt Count 193, MPV 9.6, Immature Gran % (Auto) 0.500, Neut % (Auto) 83.2 H, Lymph % (Auto) 6.8 L, Cuming % (Auto) 9.4, Eos % (Auto) 0.0, Baso % (Auto) 0.1, Absolute Neuts (auto) 8.9 H, Absolute Lymphs (auto) 0.73 L, Nucleated RBC % 0, Differential Comment SCANNED, Polychromasia RARE, Anisocytosis 2+, Microcytosis 2+, Macrocytosis 1+, Ovalocytes RARE 03/22/22 06:28: Sodium 135 L, Potassium 4.3, Chloride 97 L, Carbon Dioxide 33.0 H, Anion Gap 5, BUN 48 H, Creatinine 1.54 H, Estim Creat Clear Calc 39.48, Est GFR (MDRD) Af Amer 57 L, Est GFR (MDRD) Non-Af 47 L, BUN/Creatinine Ratio 31.2 H , Glucose 161 H, Calcium 9.1 03/22/22 06:28: PT 19.9 H, INR 1.7 Assessment & Plan Assessment/Plan (1) Debility: (2) COPD exacerbation: (3) CHF exacerbation: (4) Iron deficiency anemia: (5) Heme + stool: (6) Uncontrolled type 2 diabetes mellitus: (7) Low BP: PLAN: Plan PLAN PT for gait stability OT for ADL's Analgesics as needed Bowel protocol Fall precautions Assess for Anxiety/Depression GI prophylaxis with Pepcid 20 mg p.o. daily DVT prophylaxis - he is on Warfarin for atrial fib/flutter. Iron Sucrose 200 mg IV daily X 4 days Start ferrous sulfate + Vitamin C Add a sliding insulin scale DC the Prednisone due to heme + stool and the fact that he is on ASA. Plavix and Warfarin. Add pulmicort 0.5 mg BID DC Pepcid and start Protonix 40 mg daily. Hold the Lasix until Thursday AM........he is dry today with no rales and no edema. DC the MDI for now and start albuterol aerosols Q4H WA check orthostatics in the AM Charges/Coding Visit Charges Inpatient E&M: 44576 SNF Init L2
[2022-03-22 11:31] VITALS: O2SAT 95
[2022-03-22 11:55] LABS: Bedside Glucose 253 mg/dL (74-106)
[2022-03-22 12:07] VITALS: BP 96/52; PULSE 61; RESP 16; TEMP 35.9; O2SAT 99
[2022-03-22] MEDS: Ascorbic Acid 500 MG Tablet PO (14:02)
[2022-03-22] MEDS: Ferrous Sulfate 325 MG Tablet PO (14:03)
[2022-03-22 16:45] LABS: Bedside Glucose 281 mg/dL (74-106)
[2022-03-22] MEDS: Insulin Lispro 100 UNIT/ML INSULN.PEN SC ×2 (17:38→22:02)
[2022-03-22 19:30] VITALS: PULSE 70; RESP 18; O2SAT 99
[2022-03-22] MEDS: Albuterol 2.5 MG/3 ML VIAL.NEB. INHALATION (19:30)
[2022-03-22] MEDS: Budesonide Respules 0.5 MG/2 ML AMPUL.NEB. INHALATION (19:30)
[2022-03-22 21:55] LABS: Bedside Glucose 149 mg/dL (74-106)
[2022-03-22] MEDS: Pramipexole Di-HCl 0.5 MG Tablet PO (22:00)
[2022-03-22] MEDS: Nortriptyline 25 MG Capsule PO (22:00)
[2022-03-22] MEDS: Atorvastatin Calcium 80 MG Tablet PO (22:02)
[2022-03-22 22:37] VITALS: PULSE 64; RESP 18; O2SAT 93
[2022-03-23] VITALS (12 sets, daily range): BP systolic 83–133; BP diastolic 48–74; PULSE 57–75; RESP 18–20; TEMP 36.1–36.4; O2SAT 97–99
[2022-03-23] MEDS: Colestipol 1 GM TABLET PO ×2 (06:25→17:33)
[2022-03-23] MEDS: Pantoprazole Sodium 40 MG Tablet PO (06:25)
[2022-03-23] MEDS: FLUoxetine 20 MG Capsule PO (06:25)
[2022-03-23] MEDS: Clopidogrel Bisulfate 75 MG Tablet PO (06:25)
[2022-03-23] MEDS: Empagliflozin 10 MG Tablet PO (06:25)
[2022-03-23] MEDS: Gabapentin 300 MG Capsule 900 MG PO ×3 (06:27→21:38)
[2022-03-23] MEDS: Latanoprost 0.005% 1 Bottle 1 DRP EACH EYE ×3 (06:39→21:38)
[2022-03-23 06:55] LABS: Bedside Glucose 82 mg/dL (74-106)
[2022-03-23] MEDS: Budesonide Respules 0.5 MG/2 ML AMPUL.NEB. INHALATION ×2 (07:21→19:53)
[2022-03-23] MEDS: Albuterol 2.5 MG/3 ML VIAL.NEB. INHALATION ×5 (07:21→23:33)
[2022-03-23] MEDS: Aspirin E.C. 81 MG Tablet PO (08:07)
[2022-03-23] MEDS: Fenofibrate 145 MG Tablet PO (08:07)
[2022-03-23] MEDS: Carvedilol 6.25 MG Tablet PO ×2 (08:07→17:33)
[2022-03-23] MEDS: Insulin Glargine-YFGN 100 UNIT/ML Pen 35 UNIT SC ×2 (08:07→17:35)
[2022-03-23] MEDS: Insulin Lispro 100 UNIT/ML INSULN.PEN 23 UNIT SC ×3 (08:17→17:34)
[2022-03-23] MEDS: 0.9% Saline Lock 10 ML Syringe IV ×2 (10:30→12:39)
[2022-03-23 11:21] LABS: Bedside Glucose 163 mg/dL (74-106)
[2022-03-23] MEDS: Insulin Lispro 100 UNIT/ML INSULN.PEN SC ×3 (12:04→21:44)
[2022-03-23] MEDS: Ascorbic Acid 500 MG Tablet PO (12:04)
--- NOTE | 2022-03-23 13:20 | NURSING ---
dressing changed to coccyx wound, periwound pink but improved. dressing done per orders.
[2022-03-23 16:45] LABS: Bedside Glucose 216 mg/dL (74-106)
[2022-03-23 21:26] LABS: Bedside Glucose 161 mg/dL (74-106)
[2022-03-23] MEDS: Nortriptyline 25 MG Capsule PO (21:40)
[2022-03-23] MEDS: Pramipexole Di-HCl 0.5 MG Tablet PO (21:41)
[2022-03-23] MEDS: Atorvastatin Calcium 80 MG Tablet PO (21:42)
[2022-03-23] MEDS: Ammonium Lactate 225 gm Bottle 1 APPLIC TOPICAL (21:45)
--- NOTE | 2022-03-23 23:15 | NURSING ---
DRAWING OPERATOR reports pt w/ increased shortness of breath. In moderate distress. Vitals obtained and recorded. Bed in high fowlers position. O2 at 3 lpm via nc. SpO2 99%. Audible wheezing noted. Lungs w/ expiratory wheezes throughout lung webb. Fine crackles to b/l bases, left greater than right. Pt reports left sided left sided chest pain to left lower ribs. Pain at 6/10 that is dull and constant. Denies pain radiating to the jaw, arms, or back. Reports he becomes nauseated when he coughs. Reports he has experienced similar pain in the past. Intermittent dry, nonproductive cough. Offered SL Nitro and pt accepts. EKG ordered. Respiratory called to perform EKG. Will continue to monitor.
[2022-03-23] MEDS: Nitroglycerin (INPATIENT USE) 0.4 MG TAB.SUBL SL (23:19)
--- NOTE | 2022-03-23 23:48 | NURSING ---
Paged Dr. Canales. Respiratory completed EKG and administered an aerosol treatment per dr arnold
[2022-03-24] VITALS (8 sets, daily range): BP systolic 92–138; BP diastolic 50–90; PULSE 64–82; RESP 10–18; TEMP 36.2; O2SAT 94–99
--- NOTE | 2022-03-24 00:06 | NURSING ---
Had rope making machine operator page Dr. Canales again after no response w/ initial attempt. She offered to direct connect this nurse. Connected to Dr. Canales's phone and went immediately to [employer]il. Left requesting return call to unit. Phone call placed to Tape Rules Printing Machine Operator, Meka, to update. She provided options to have Dr. Canales paged again or page the hospitalist. This nurse went to check on pt who was resting w/ eyes closed in bed laying on his right side. O2 vioa nc. Respirations even and unlabored. Did not note audible wheezes. In no acute distress. Secure backline text message sent to Tape Rules Printing Machine Operator to update. Will continue to monitor.
[2022-03-24] MEDS: Isosorbide Mononitrate 60 MG Tablet PO (05:28)
[2022-03-24] MEDS: Colestipol 1 GM TABLET PO ×2 (05:30→17:53)
[2022-03-24] MEDS: Clopidogrel Bisulfate 75 MG Tablet PO (05:30)
[2022-03-24] MEDS: Pantoprazole Sodium 40 MG Tablet PO (05:30)
[2022-03-24] MEDS: FLUoxetine 20 MG Capsule PO (05:31)
[2022-03-24] MEDS: Lisinopril 20 MG Tablet PO (05:31)
[2022-03-24] MEDS: Gabapentin 300 MG Capsule 900 MG PO ×3 (05:31→21:27)
[2022-03-24] MEDS: Latanoprost 0.005% 1 Bottle 1 DRP EACH EYE ×3 (05:32→21:30)
[2022-03-24] MEDS: Ammonium Lactate 225 gm Bottle 1 APPLIC TOPICAL ×2 (05:32→21:38)
[2022-03-24] MEDS: Empagliflozin 10 MG Tablet PO (05:33)
[2022-03-24] MEDS: Spironolactone 25 MG Tablet PO (05:34)
--- NOTE | 2022-03-24 05:43 | NURSING ---
Lasix held per dr order as medication to be re-evaluated today. C/O nasal congestion. Humidification added to O2. Lachydrin applied to BLE and feet.
[2022-03-24 06:13] LABS: Prothrombin Time (Protime)PT. 22.2 SECONDS (11.7-14.9)
[2022-03-24 06:26] LABS: Bedside Glucose 98 mg/dL (74-106)
[2022-03-24] MEDS: Insulin Glargine-YFGN 100 UNIT/ML Pen 35 UNIT SC ×2 (06:53→17:57)
[2022-03-24] MEDS: Albuterol 2.5 MG/3 ML VIAL.NEB. INHALATION ×4 (07:40→19:50)
[2022-03-24] MEDS: Budesonide Respules 0.5 MG/2 ML AMPUL.NEB. INHALATION ×2 (07:40→19:50)
[2022-03-24] MEDS: Carvedilol 6.25 MG Tablet PO ×2 (08:01→17:53)
[2022-03-24] MEDS: Aspirin E.C. 81 MG Tablet PO (08:01)
[2022-03-24] MEDS: Insulin Lispro 100 UNIT/ML INSULN.PEN 23 UNIT SC ×3 (08:02→17:54)
[2022-03-24] MEDS: Fenofibrate 145 MG Tablet PO (08:04)
[2022-03-24] MEDS: 0.9% Saline Lock 10 ML Syringe IV (10:31)
[2022-03-24 11:25] LABS: Bedside Glucose 138 mg/dL (74-106)
[2022-03-24] MEDS: Ascorbic Acid 500 MG Tablet PO (12:06)
[2022-03-24] MEDS: Ferrous Sulfate 325 MG Tablet PO (12:06)
--- NOTE | 2022-03-24 12:12 | PN_ITS ---
Subjective Subjective Afebrile VSS Maintaining appropriate oxygen saturation on RA Oral intake is fair. Ate 75 to 100% of his breakfast today. Not taking much fluid. His weight is down 5-1/2 pounds over the past 3 days. Discussed with nursing - no problems that need addressed Reviewed the PT/OT/ST notes Medication list reviewed. INR is 2 today. Lab from 03/22/22 with mild contraction alkalosis. CXR from 03/17/2022 shows an elevated right hemidiaphragm with atelectasis. No significant pulmonary vascular congestion. CT scan from August 2019 showed normal lungs. Recent echocardiogram shows a 55% ejection fraction with no regional wall motion abnormalities. In the past he has had global hypokinesis of the left ventricle with a 45% ejection fraction. The right ventricle has been dilated in the past but the most recent echo shows a normal right ventricular size with normal systolic function. Right atrium is mildly enlarged and the left atrium is normal. There was no significant valvular heart disease. I reviewed cardiology and pulmonary notes for the past 6 months. Pt always c/o being SOB........even with no edema, no crackles and normal pulse ox. Nausea is better. He was complaining of CP and SOB after eating a big lunch when therapy came to his room to work with him. He is afraid of getting SOB. His told me today that he is always SOB at home. He does not have oxygen at home. He has known JESSICA but, I do not see a CPAP in his room. He usually wears it at home.........the family did not bring it to the hospital with him. I observed him sleeping this afternoon......he is having apneic episodes. He was lying on his back sleeping and when I shook him he startled awake. He has a large pendul ous abd and when he is lying on his back his respiratory excursion is very limited due to the abd pressure. I suspect the wheezing in the bases is due to compression from the upward abd pressure on the diaphragm. Objective Data Objective Data Vital Signs: Vital Signs Temp Pulse Resp BP Pulse Ox O2 Del Method O2 Flow Rate 97.6 F L 65 16 134/74 H 95 Nasal Cannula 3 03/23/22 23:15 03/24/22 07:40 03/24/22 07:40 03/24/22 05:20 03/24/22 09:49 03/24/22 07:40 03/24/22 09:49 Oxygen Flow Rate (L/min) 3 Oxygen Delivery Method Nasal Cannula Weight: 275 lb 6.4 oz Body Mass Index (BMI) 42.7 Intake & Output: Intake and Output for Last 24 Hours 03/22/22 03/23/22 03/24/22 23:59 23:59 23:59 Intake Total 1400 / 1400 870 / 870 240 / 240 Balance 1400 / 1400 870 / 870 240 / 240 Lab / Micro Data Result Diagrams: 03/22/22 06:28 03/22/22 06:28 Labs: Laboratory Results - last 24 hr 03/23/22 16:20: POC Glucose 216 H 03/23/22 21:03: POC Glucose 161 H 03/24/22 05:51: PT 22.2 H, INR 2.0 03/24/22 06:01: POC Glucose 98 03/24/22 10:53: POC Glucose 138 H Micro: Microbiology 03/23/22 07:48 Nasal Secretion SARS-CoV-2 Antigen (Rapid) - Final Physical Exam Const Constitutional Narrative: Drowsy. He got Xanax X 1 for CP/SOB due to anxiety. Falls back to sleep easily. Denies CP/SOB at this time. Resp Resp Narrative: mild exp wheezing in the bases.......no crackles. not tachypneic. Has NOT been wearing BIPAP in the hospital. Having apnea when sleeping Effort and Inspection: Negative for labored or uses accessory muscles Cardio no rub and no gallops GI normal to inspection, nondistended, normoactive bowel sounds and soft to palpation GI Narrative: morbidly obese abd Extremity Extremity Narrative: He has no pitting edema of the LE's......he does have goblet deformities of the distal LE's and the skin over the distal LE's is inelastic which puts him at risk for venous stasis ulcers. He has no compression on his legs. General Extremity: edema Skin Rashes: no rashes Assessment & Plan Assessment/Plan (1) Debility: PLAN: Continue therapy (2) Uncontrolled type 2 diabetes mellitus: PLAN: BS's are coming under better control with adjustments to the insulin. (3) Morbid obesity with BMI of 40.0-44.9, adult: PLAN: Wt loss encouraged. He really needs to lose weight and he continues to gain weight. would consider DC of Prozac and trying an antidepressant that will not sedate him and that can suppress appetite........like Wellbutrin XL 150 mg Q AM or Effexor XR 75 mg daily. (4) CAD (coronary artery disease): PLAN: Negative stress in April 2021 (5) JESSICA (obstructive sleep apnea): PLAN: NOT complaint with BIPAP in the hospital and so he is sleep deprived. Family will bring his BIPAP in but, until they bring his unit in we will have RT use the hospital BIPAP. (6) Anxiety: PLAN: I suspect his SOB and CP is anxiety related. He has no edema, CXR has no infiltrates and no PVC, he is not tachypneic and has no conversational dyspnea. He is chronically sleep deprived. Will start low dose Buspar 5 mg BID. Charges/Coding Visit Charges Inpatient E&M: 89608 SNF Subs L2
--- NOTE | 2022-03-24 12:21 | NURSING ---
Community Educator Note; Activity Asset: Laurent Obando is independent in his choice of daily activities. Family will visit daily and he will watch tv, read the paper or rest. Topher stated he is not interested in out of room activities other than his therapy so he can get back home. I will continue to visit w/him and offer in room activities.
--- NOTE | 2022-03-24 12:45 | NURSING ---
Patient c/o chest pain after eating everything on meal tray. Patient said he gets chest pain at home too. BP 92/50 and recheck 99/50. Pulse 66. Dr. Canales sent message to call back nurse.
[2022-03-24] MEDS: ALPRAZolam 0.25 MG Tablet PO (12:54)
--- NOTE | 2022-03-24 13:01 | NURSING ---
Patient reported his chest pain is going away and rates pain a 3 on 1-[address] Canales ordered xanax 0.25mg x1 and given with patient consent and patient requested to be assisted to the bathroom and done so at this time. Dr. Canales approved of lasix to be restarted tonight.
--- NOTE | 2022-03-24 14:00 | NURSING ---
Up to bathroom x 1 assist, walker. Patient needed help with toileting task. Patient transferred out of recliner at stand by level. Patient's gait is slow but steady. Will monitor.
--- NOTE | 2022-03-24 15:52 | NURSING ---
Family here for visit and reported he wears his cpap at home but it is not here. Family will bring in his home cpap.
[2022-03-24 17:05] LABS: Bedside Glucose 106 mg/dL (74-106)
[2022-03-24] MEDS: busPIRone 5 MG Tablet PO (17:53)
[2022-03-24] MEDS: Furosemide 80 MG Tablet PO (17:53)
[2022-03-24] MEDS: Atorvastatin Calcium 80 MG Tablet PO (21:28)
[2022-03-24] MEDS: Pramipexole Di-HCl 0.5 MG Tablet PO (21:29)
[2022-03-24] MEDS: Nortriptyline 25 MG Capsule PO (21:30)
[2022-03-24 21:41] LABS: Bedside Glucose 76 mg/dL (74-106)
[2022-03-24 22:45] LABS: Bedside Glucose 86 mg/dL (74-106)
[2022-03-25 01:32] VITALS: PULSE 66; RESP 10; RESP 16; O2SAT 98
[2022-03-25 05:06] VITALS: PULSE 62; RESP 10; RESP 16; O2SAT 98
[2022-03-25] MEDS: Gabapentin 300 MG Capsule 900 MG PO ×3 (06:36→22:14)
[2022-03-25] MEDS: Empagliflozin 10 MG Tablet PO (06:37)
[2022-03-25] MEDS: Spironolactone 25 MG Tablet PO (06:37)
[2022-03-25] MEDS: Clopidogrel Bisulfate 75 MG Tablet PO (06:37)
[2022-03-25] MEDS: Pantoprazole Sodium 40 MG Tablet PO (06:37)
[2022-03-25] MEDS: busPIRone 5 MG Tablet PO ×2 (06:37→17:41)
[2022-03-25] MEDS: Lisinopril 20 MG Tablet PO (06:38)
[2022-03-25] MEDS: Colestipol 1 GM TABLET PO ×2 (06:38→17:41)
[2022-03-25] MEDS: FLUoxetine 20 MG Capsule PO (06:38)
[2022-03-25] MEDS: Isosorbide Mononitrate 60 MG Tablet PO (06:38)
[2022-03-25] MEDS: Latanoprost 0.005% 1 Bottle 1 DRP EACH EYE ×3 (06:39→22:27)
[2022-03-25] MEDS: Furosemide 80 MG Tablet PO ×2 (06:39→18:13)
[2022-03-25] MEDS: Ammonium Lactate 225 gm Bottle 1 APPLIC TOPICAL ×2 (06:39→22:15)
[2022-03-25 06:40] LABS: Bedside Glucose 130 mg/dL (74-106)
[2022-03-25] MEDS: Insulin Glargine-YFGN 100 UNIT/ML Pen 35 UNIT SC ×2 (06:43→18:07)
[2022-03-25 06:45] VITALS: PULSE 73; RESP 15
[2022-03-25] MEDS: Albuterol 2.5 MG/3 ML VIAL.NEB. INHALATION ×2 (06:45→19:05)
[2022-03-25] MEDS: Budesonide Respules 0.5 MG/2 ML AMPUL.NEB. INHALATION ×2 (06:45→19:05)
[2022-03-25] MEDS: Insulin Lispro 100 UNIT/ML INSULN.PEN 23 UNIT SC ×2 (08:07→12:17)
[2022-03-25] MEDS: Fenofibrate 145 MG Tablet PO (08:08)
[2022-03-25] MEDS: Carvedilol 6.25 MG Tablet PO ×2 (08:08→18:13)
[2022-03-25] MEDS: Aspirin E.C. 81 MG Tablet PO (08:08)
[2022-03-25 10:33] VITALS: O2SAT 98
--- NOTE | 2022-03-25 11:20 | CASEMGMT ---
Social Work See attached assessment for completed social work assessment. This clinical social work aide met with patient in room. Introduced self and clinical social work aide role. Patient plans to discharge to home with spouse and patient daughter at time of discharge. This clinical social work aide going over MOLST form with patient. Patient wishes to continued to be Full Code as listed on chart and signed MOLST forms. This clinical social work aide going over patient insurance benefits and encouraged patient to reach out to secondary insurance to confirm coverage benefits. Patient has Living Will on chart and reports to have Health Care power of Chair Springer, this clinical social work aide encouraged patient to have family bring in documents for Health Care Power of Chair Springer. Social Work to continue to follow. Verito LAWLER, SHARMILA
[2022-03-25 11:40] LABS: Bedside Glucose 112 mg/dL (74-106)
[2022-03-25] MEDS: 0.9% Saline Lock 10 ML Syringe IV (12:16)
[2022-03-25] MEDS: Ascorbic Acid 500 MG Tablet PO (12:18)
[2022-03-25] MEDS: Ferrous Sulfate 325 MG Tablet PO (12:19)
[2022-03-25 14:31] VITALS: BP 98/50; PULSE 70; RESP 19; TEMP 36.2; O2SAT 96
[2022-03-25 17:05] LABS: Bedside Glucose 96 mg/dL (74-106)
[2022-03-25 19:05] VITALS: PULSE 72; RESP 18
[2022-03-25] MEDS: Nortriptyline 25 MG Capsule PO (22:14)
[2022-03-25] MEDS: Atorvastatin Calcium 80 MG Tablet PO (22:14)
[2022-03-25] MEDS: Pramipexole Di-HCl 0.5 MG Tablet PO (22:14)
[2022-03-25 22:55] LABS: Bedside Glucose 138 mg/dL (74-106)
[2022-03-26] VITALS (8 sets, daily range): BP systolic 90–108; BP diastolic 52–63; PULSE 65–70; RESP 16–19; TEMP 35.9–36.3; O2SAT 96–99
[2022-03-26] MEDS: FLUoxetine 20 MG Capsule PO (05:22)
[2022-03-26] MEDS: Spironolactone 25 MG Tablet PO (05:22)
[2022-03-26] MEDS: Isosorbide Mononitrate 60 MG Tablet PO (05:22)
[2022-03-26] MEDS: Lisinopril 20 MG Tablet PO (05:22)
[2022-03-26] MEDS: Gabapentin 300 MG Capsule 900 MG PO ×3 (05:22→22:17)
[2022-03-26] MEDS: Furosemide 80 MG Tablet PO ×2 (05:23→16:07)
[2022-03-26] MEDS: Colestipol 1 GM TABLET PO ×2 (05:23→17:43)
[2022-03-26] MEDS: Pantoprazole Sodium 40 MG Tablet PO (05:23)
[2022-03-26] MEDS: Ammonium Lactate 225 gm Bottle 1 APPLIC TOPICAL ×2 (05:23→22:17)
[2022-03-26] MEDS: Empagliflozin 10 MG Tablet PO (05:23)
[2022-03-26] MEDS: Clopidogrel Bisulfate 75 MG Tablet PO (05:23)
[2022-03-26] MEDS: busPIRone 5 MG Tablet PO ×2 (05:24→17:43)
[2022-03-26] MEDS: Latanoprost 0.005% 1 Bottle 1 DRP EACH EYE ×3 (05:24→22:12)
[2022-03-26] MEDS: Insulin Glargine-YFGN 100 UNIT/ML Pen 35 UNIT SC ×2 (05:32→17:44)
[2022-03-26 07:06] LABS: Bedside Glucose 130 mg/dL (74-106)
[2022-03-26] MEDS: Albuterol 2.5 MG/3 ML VIAL.NEB. INHALATION ×2 (07:45→12:09)
[2022-03-26] MEDS: Budesonide Respules 0.5 MG/2 ML AMPUL.NEB. INHALATION (07:45)
[2022-03-26] MEDS: Insulin Lispro 100 UNIT/ML INSULN.PEN 23 UNIT SC ×3 (07:58→17:39)
[2022-03-26] MEDS: Aspirin E.C. 81 MG Tablet PO (07:58)
[2022-03-26] MEDS: Carvedilol 6.25 MG Tablet PO ×2 (07:58→16:08)
[2022-03-26] MEDS: Fenofibrate 145 MG Tablet PO (09:12)
--- NOTE | 2022-03-26 09:31 | CASEMGMT ---
Social Work IDT met with patient for care plan meeting. attempted to be contacted via phone but no answer and no voicemail available. Discussed patient's progress in PT/OT/SN. Educated to Medicare benefit. Encouraged to contact secondary insurance to ensure copay coverage. Pt's goal is to return home with at OF. Offered family therapy training prior to DC to ensure family can assist pt at home if needed. Goal is to wean pt off of new O2. SW to continue to follow for DC planning. BUCKY RojasW
[2022-03-26] MEDS: Ascorbic Acid 500 MG Tablet PO (11:33)
[2022-03-26] MEDS: Ferrous Sulfate 325 MG Tablet PO (11:33)
[2022-03-26] MEDS: 0.9% Saline Lock 10 ML Syringe IV (11:34)
[2022-03-26 11:55] LABS: Bedside Glucose 109 mg/dL (74-106)
--- NOTE | 2022-03-26 15:20 | PHA.CONS_ITS ---
TCU RX Drug Regimen Review Subjective: TCU Admission. 76 YOM presented to the ER with shortness of breath. Hospitalized due to acute on chronic congestive heart failure in conjunction with acute COPD exacerbation. Admitted to TCU for strengthening and rehabilitation. Objective: Allergies ceftriaxone sodium [From Rocephin] Allergy (Verified 03/16/22 14:31) Rash milk Adverse Reaction (Verified 03/16/22 14:31) Diarrhea morphine Adverse Reaction (Verified 03/16/22 14:31) hallucinations Current Medications Generic Name Dose Route Start Last Admin Trade Name Freq PRN Reason Stop Dose Admin Albuterol Sulfate 2.5 mg 03/22/22 12:30 03/26/22 12:09 Albuterol 2.5 Mg/3 Ml Vial.Neb. INHALATION 2.5 mg Q4HWA.RT MELISSA Administration Ascorbic Acid 500 mg 03/22/22 12:00 03/26/22 11:33 Ascorbic Acid 500 Mg Tablet PO 500 mg LUNCH MELISSA Administration Aspirin 81 mg 03/22/22 08:00 03/26/22 07:58 Aspirin E.C. 81 Mg Tablet PO 81 mg DAILY@0800 MELISSA Administration Atorvastatin Calcium 80 mg 03/21/22 22:00 03/25/22 22:14 Atorvastatin Calcium 80 Mg Tablet PO 80 mg QHS MELISSA Administration Bisacodyl 10 mg 03/21/22 15:55 Bisacodyl 10 Mg Suppository RC X1 PRN Constipation Budesonide 0.5 mg 03/22/22 12:30 03/26/22 07:45 Budesonide Respules 0.5 Mg/2 Ml Ampul.Neb. INHALATION 0.5 mg BID.RT MELISSA Administration Buspirone HCl 5 mg 03/24/22 18:00 03/26/22 05:24 Buspirone 5 Mg Tablet PO 5 mg BID MELISSA Administration Carvedilol 6.25 mg 03/23/22 08:00 03/26/22 07:58 Carvedilol 6.25 Mg Tablet PO 6.25 mg BIDCM MELISSA Administration Clopidogrel Bisulfate 75 mg 03/22/22 06:00 03/26/22 05:23 Clopidogrel Bisulfate 75 Mg Tablet PO 75 mg DAILY MELISSA Administration Colestipol HCl 1 gm 03/21/22 18:00 03/26/22 05:23 Colestipol 1 Gm Tablet PO 1 gm BID MELISSA Administration Empagliflozin 10 mg 03/22/22 06:00 03/26/22 05:23 Empagliflozin 10 Mg Tablet PO 10 mg DAILY MELISSA Administration Fenofibrate 145 mg 03/22/22 08:00 03/26/22 09:12 Fenofibrate 145 Mg Tablet PO 145 mg 0800 MELISSA Administration Ferrous Sulfate 325 mg 03/22/22 12:00 03/26/22 11:33 Ferrous Sulfate 325 Mg Tablet PO 325 mg LUNCH MELISSA Administration Fluoxetine HCl 20 mg 03/22/22 06:00 03/26/22 05:22 Fluoxetine 20 Mg Capsule PO 20 mg DAILY MELISSA Administration Furosemide 80 mg 03/21/22 18:00 03/26/22 05:23 Furosemide 80 Mg Tablet PO 80 mg BID MELISSA Administration Gabapentin 900 mg 03/21/22 22:00 03/26/22 14:57 Gabapentin 300 Mg Capsule PO 900 mg TID MELISSA Administration Sodium Chloride 250 mls @ 15 mls/hr 03/23/22 07:07 IV .[id number] PRN Saline Flush Sodium Chloride 250 mls @ 15 mls/hr 03/23/22 07:07 IV .[id number] PRN Additional IVPB Infusion Insulin Glargine 35 unit 03/21/22 18:00 03/26/22 05:32 Insulin Glargine-Yfgn 100 Unit/Ml Pen SC 35 unit BID MELISSA Administration Insulin Human Lispro 23 unit 03/21/22 17:00 03/26/22 12:10 Insulin Lispro 100 Unit/Ml Insuln.Pen SC 23 units 0800,1200,1700 [facility] Administration Insulin Human Lispro 0 unit 03/22/22 16:00 03/26/22 12:02 Insulin Lispro 100 Unit/Ml Insuln.Pen SC Not Given ACHS [facility] Protocol Isosorbide Mononitrate 60 mg 03/22/22 06:00 03/26/22 05:22 Isosorbide Mononitrate 60 Mg Tablet PO 60 mg DAILY MELISSA Administration Lactic Acid 1 applic 03/23/22 22:00 03/26/22 05:23 Ammonium Lactate 225 Gm Bottle TOPICAL 1 applic 0600,2200 [facility] Administration Protocol Latanoprost 1 drp 03/21/22 22:00 03/26/22 14:56 Latanoprost 0.005% 1 Bottle EACH EYE 1 drp TID MELISSA Administration Lisinopril 20 mg 03/22/22 06:00 03/26/22 05:22 Lisinopril 20 Mg Tablet PO 20 mg DAILY [facility] Administration Multi-Ingredient Cream 1 applic 03/27/22 06:00 Petrolatum 33% Tube TOPICAL DAILY [facility] Protocol Nitroglycerin 0.4 mg 03/21/22 15:56 03/23/22 23:19 Nitroglycerin (Inpatient Use) 0.4 Mg Tab.Subl SL 0.4 mg Q5M PRN Administration CARDIAC/CHEST PAIN Non-Formulary Medication 3 mg 03/21/22 15:45 Dulaglutide [Trulicity] SC QWEEK MELISSA Nortriptyline HCl 25 mg 03/21/22 22:00 03/25/22 22:14 Nortriptyline 25 Mg Capsule PO 25 mg QHS [facility] Administration Ondansetron HCl 4 mg 03/21/22 15:35 Ondansetron Odt 4 Mg Tablet PO Q6H PRN Nausea Pantoprazole Sodium 40 mg 03/23/22 06:00 03/26/22 05:23 Pantoprazole Sodium 40 Mg Tablet PO 40 mg DAILY [facility] Administration Pramipexole Dihydrochloride 0.5 mg 03/21/22 22:00 03/25/22 22:14 Pramipexole Di-Hcl 0.5 Mg Tablet PO 0.5 mg QHS [facility] Administration Senna/Docusate Sodium 2 tablet 03/21/22 15:35 Senna/Docusate Sodium 1 Tablet PO BID PRN PRN Constipation Sodium Chloride 10 - 40 ml 03/23/22 07:07 03/26/22 11:34 0.9% Saline Lock 10 Ml Syringe IV 20 ml UD PRN Administration SALINE FLUSH Spironolactone 25 mg 03/22/22 06:00 03/26/22 05:22 Spironolactone 25 Mg Tablet PO 25 mg DAILY [facility] Administration Tuberculin PPD 0.1 ml 03/29/22 10:00 Tuberculin,Purif.Prot.Deriv. 50 Tu/Ml Vial ID 03/29/22 10:01 X1 ONE Warfarin Sodium 3 mg 03/21/22 17:00 03/24/22 17:54 Warfarin 3 Mg Tablet PO 3 mg [id number] MELISSA Administration Warfarin Sodium 6 mg 03/22/22 17:00 03/25/22 17:41 Warfarin 6 Mg Tablet PO 6 mg SUTUTHSA [facility] Administration Problem List (Last Updated 03/24/22 @ 15:[address] Riana Canales, DO) Anxiety (Acute) Morbid obesity with BMI of 40.0-44.9, adult (Acute) Low BP (Acute) Uncontrolled type 2 diabetes mellitus (Acute) COPD exacerbation (Chronic) Debility (Acute) Heme + stool (Acute) Iron deficiency anemia (Acute) CHF exacerbation (Chronic) CAD (coronary artery disease) (Chronic) JESSICA (obstructive sleep apnea) (Acute) Vital Signs Temp Pulse Resp BP Pulse Ox O2 Del Method O2 Flow Rate 97.4 F L 70 19 H 108/52 L 97 Room Air 3 03/26/22 14:09 03/26/22 14:09 03/26/22 14:09 03/26/22 14:09 03/26/22 14:09 03/26/22 14:09 03/26/22 10:54 FiO2 30 03/25/22 05:06 Oxygen Flow Rate (L/min) 3 Oxygen Delivery Method Room Air Weight: 125.01 kg Body Mass Index (BMI) 42.7 Sodium 135 mmol/L (136-145) L 03/22/22 06:28 Potassium 4.3 mmol/L (3.5-5.1) 03/22/22 06:28 Chloride 97 mmol/L (98-107) L 03/22/22 06:28 Carbon Dioxide 33.0 mmol/L (21.0-32.0) H 03/22/22 06:28 Anion Gap 5 (5-15) 03/22/22 06:28 BUN 48 mg/dL (7-18) H 03/22/22 06:28 Creatinine 1.54 mg/dL (0.70-1.30) H 03/22/22 06:28 Est GFR (MDRD) Af Amer 57 mL/min (>60) L 03/22/22 06:28 Est GFR (MDRD) Non-Af 47 mL/min (>60) L 03/22/22 06:28 BUN/Creatinine Ratio 31.2 RATIO (10-20) H 03/22/22 06:28 Glucose 161 mg/dL (74-106) H 03/22/22 06:28 Assessment/Plan: 1. Bowel: senna/docusate 2T PO BID PRN constipation and bisacodyl 10mg RC x1 PRN constipation. Resident has not required any doses. Last documented bowel movement was today. Please continue to monitor for constipation and PRN usage. 2. Iron deficiency anemia: ferrous sulfate 325mg PO lunch and ascorbic acid 500mg PO lunch. Please continue to monitor hemoglobin (last 9.4g/dL), constipation and dark stools. 3. HFrEF/CAD/HTN: aspirin 81mg PO breakfast, carvedilol 6.25mg PO BIDCM, clopidogrel 75mg PO daily, furosemide 80mg PO BID, isosorbide mononitrate 60mg PO daily, lisinopril 20mg PO daily, nitroglycerin 0.4mg SL Q5M PRN cardiac/chest pain and spironolactone 25mg PO daily. Please continue to monitor for S/S of bleeding, hemoglobin, BP (last 108/52), HR (last 70), potassium (last 4.3mmol/L), sodium (last 135mmol/L), chest pain, facial flushing, headache, renal function and cough. Resident has had 1 dose of nitroglycerin. 4. Diabetes Mellitus II: empagliflozin 10mg PO daily, insulin glargine 35units SC BID, insulin lispro 23units SC TIDCM and SS ACHS (no doses in last 24 hours), and Trulicity 3mg SC weekly (will be started when family brings in medication). Please consider ordering a hemoglobin A1c now and then every 3 months as clinically appropriate. Last A1c was 7.4% from 04/22/21. Thanks. Please continue to monitor for S/S of hypoglycemia, glucose (last 109 mg/dL), S/S UTI, renal function, weight gain and skin irritation. 5. COPD exacerbation: albuterol nebulized solution 2.5mg inhalation Q4HWA.RT and budesonide nebulized solution 0.5mg BID.RT. Please continue to monitor HR (last 70) and S/S of thrush. Please rinse mouth with water following budesonide administration to prevent thrush. 6. Hyperlipidemia: atorvastatin 80mg PO QHS, colestipol 1gm PO BID and fenofibrate 145mg PO daily. Please continue to monitor lipid panel (last 04/22/21), renal function, GI side effects, LFTs (last 03/21/22), and muscle pain. 7. GI prophylaxis: pantoprazole 40mg PO daily. Please continue to monitor for S/S of GERD and diarrhea (BEERs criteria medication due to increased risk of C. diff infections). 8. Nausea: ondansetron 4mg PO Q6H PRN nausea. Resident has not had any doses. Please continue to monitor for nausea and PRN usage. 9. History of DVT/atrial fibrillation/flutter: warfarin 3mg PO MWF and 6mg all other days. Please continue to monitor for S/S of bleeding/DVT, INR (last 2) and hemoglobin. Assessment/Plan for indications treated with psychotropic medications: 1. Anxiety: fluoxetine 20mg PO daily, nortriptyline 25 mg PO QHS and buspirone 5mg PO BID. Buspirone just started, GDR not appropriate. Please consider GDR for fluoxetine by 08/2022 if clinically appropriate. Thanks. Please continue to monitor for S/S of anxiety, suicidal ideation (black box warning fluoxetine and nortriptyline), falls/fractures (BEERs criteria medication fluoxetine and nortriptyline), sedation (BEERs criteria for nortriptyline), anticholinergic side effects (BEERs criteria for nortriptyline), dementia/delirium (BEERs criteria for nortriptyline) and GI side effects. Medical chart and medication regimen reviewed. The following medication irregularities or issues were identified: *1. Empagliflozin 10mg PO daily, insulin glargine 35units SC BID, insulin lispro 23units SC TIDCM and SS ACHS, and Trulicity 3mg SC weekly (will be started when family brings in medication). Please consider ordering a hemoglobin A1c now and then every 3 months as clinically appropriate. Last A1c was 7.4% from 04/22/21. Thanks. *2. Fluoxetine 20mg PO daily. Please consider GDR for fluoxetine by 08/2022 if clinically appropriate. Thanks. *3. I did not see documented indications for pramipexole 0.5mg PO QHS, latanoprost 0.005% 1gtt OU TID or gabapentin 900mg PO TID. Please consider adding the indications or potentially stopping medication if they are not clinically indicated. Dosing for latanoprost if more frequent than normal and above the max dose of 1gtt per eye daily. Please consider changing to 1gtt OU QHS if resident is to remain on latanoprost. Thanks. *4. Latanoprost 0.005% 1gtt OU TID. Dosing for latanoprost if more frequent than normal and above the max dose of 1gtt per eye daily. Please consider changing to 1gtt OU QHS if resident is to remain on latanoprost. Thanks. Date of Note:: 03/26/22
--- NOTE | 2022-03-26 16:32 | NURSING ---
Pt c/o of pain over pacemaker site. Swelling also noted. Called [facility] and Pacemaker nurse is out of office. Will update Dr. Wisdom.
[2022-03-26 17:01] LABS: Bedside Glucose 128 mg/dL (74-106)
[2022-03-26 21:40] LABS: Bedside Glucose 85 mg/dL (74-106)
[2022-03-26] MEDS: Atorvastatin Calcium 80 MG Tablet PO (22:17)
[2022-03-26] MEDS: Pramipexole Di-HCl 0.5 MG Tablet PO (22:17)
[2022-03-26] MEDS: Doxycycline 100 MG CAPSULE PO (22:17)
[2022-03-26] MEDS: Cephalexin 500 MG Capsule PO (22:17)
[2022-03-26] MEDS: Nortriptyline 25 MG Capsule PO (22:17)
[2022-03-27 05:06] VITALS: BP 111/62; PULSE 64
[2022-03-27] MEDS: Empagliflozin 10 MG Tablet PO (05:07)
[2022-03-27] MEDS: Lisinopril 20 MG Tablet PO (05:07)
[2022-03-27] MEDS: busPIRone 5 MG Tablet PO ×2 (05:07→17:08)
[2022-03-27] MEDS: Colestipol 1 GM TABLET PO ×2 (05:07→17:08)
[2022-03-27] MEDS: FLUoxetine 20 MG Capsule PO (05:07)
[2022-03-27] MEDS: Spironolactone 25 MG Tablet PO (05:07)
[2022-03-27] MEDS: Clopidogrel Bisulfate 75 MG Tablet PO (05:09)
[2022-03-27] MEDS: Isosorbide Mononitrate 60 MG Tablet PO (05:09)
[2022-03-27] MEDS: Pantoprazole Sodium 40 MG Tablet PO (05:09)
[2022-03-27] MEDS: Doxycycline 100 MG CAPSULE PO ×2 (05:09→17:08)
[2022-03-27] MEDS: Ammonium Lactate 225 gm Bottle 1 APPLIC TOPICAL ×2 (05:09→21:11)
[2022-03-27] MEDS: Cephalexin 500 MG Capsule PO ×2 (05:09→17:08)
[2022-03-27] MEDS: Furosemide 80 MG Tablet PO ×2 (05:11→14:36)
[2022-03-27] MEDS: Petrolatum 33% Tube 1 APPLIC TOPICAL (05:12)
[2022-03-27] MEDS: Latanoprost 0.005% 1 Bottle 1 DRP EACH EYE ×3 (05:21→21:09)
[2022-03-27 06:05] LABS: International Normalized Ratio 1.7; Prothrombin Time (Protime)PT. 19.4 SECONDS (11.7-14.9)
[2022-03-27] MEDS: Insulin Glargine-YFGN 100 UNIT/ML Pen 35 UNIT SC ×2 (06:34→17:55)
[2022-03-27 06:35] LABS: Bedside Glucose 75 mg/dL (74-106)
[2022-03-27 07:00] LABS: Bedside Glucose 111 mg/dL (74-106)
[2022-03-27] MEDS: Gabapentin 300 MG Capsule 900 MG PO ×3 (08:17→21:10)
[2022-03-27] MEDS: Carvedilol 6.25 MG Tablet PO ×2 (08:18→17:08)
[2022-03-27] MEDS: Fenofibrate 145 MG Tablet PO (08:18)
[2022-03-27] MEDS: Aspirin E.C. 81 MG Tablet PO (08:18)
[2022-03-27] MEDS: Insulin Lispro 100 UNIT/ML INSULN.PEN 23 UNIT SC ×3 (08:18→17:55)
[2022-03-27 09:09] VITALS: BP 120/54; PULSE 71; RESP 18; O2SAT 98
[2022-03-27 10:00] VITALS: PULSE 65; RESP 18; O2SAT 96
[2022-03-27 11:45] LABS: Bedside Glucose 135 mg/dL (74-106)
[2022-03-27] MEDS: Ascorbic Acid 500 MG Tablet PO (11:50)
[2022-03-27] MEDS: Ferrous Sulfate 325 MG Tablet PO (11:50)
[2022-03-27] MEDS: 0.9% Saline Lock 10 ML Syringe IV (11:51)
--- NOTE | 2022-03-27 13:25 | CPS ---
Pt and thought the aerosols were going to stop. Pt doesn't like inhalers so a PRN aerosol was left in his orders
[2022-03-27 14:01] VITALS: O2SAT 99
--- NOTE | 2022-03-27 15:38 | NURSING ---
Addendum entered by Riana Lozano 03/27/22 16:24: dr meier reviewed, no new orders, continue plan of care Original Note: CT chest negative for mass/fluids/etc report left for Dr meier to review
[2022-03-27 15:45] VITALS: BP 112/66; PULSE 61; RESP 20; TEMP 36.3; O2SAT 100
[2022-03-27 16:40] LABS: Bedside Glucose 196 mg/dL (74-106)
[2022-03-27] MEDS: Insulin Lispro 100 UNIT/ML INSULN.PEN SC (17:55)
[2022-03-27] MEDS: Atorvastatin Calcium 80 MG Tablet PO (21:10)
[2022-03-27] MEDS: Nortriptyline 25 MG Capsule PO (21:10)
[2022-03-27] MEDS: Pramipexole Di-HCl 0.5 MG Tablet PO (21:10)
[2022-03-27 21:35] LABS: Bedside Glucose 79 mg/dL (74-106)
[2022-03-27 22:01] LABS: Bedside Glucose 91 mg/dL (74-106)
[2022-03-28 05:00] VITALS: BP 139/62; PULSE 69; RESP 18; TEMP 35.9; O2SAT 99
[2022-03-28] MEDS: Pantoprazole Sodium 40 MG Tablet PO (05:15)
[2022-03-28] MEDS: Latanoprost 0.005% 1 Bottle 1 DRP EACH EYE ×3 (05:15→21:02)
[2022-03-28] MEDS: Lisinopril 20 MG Tablet PO (05:16)
[2022-03-28] MEDS: Colestipol 1 GM TABLET PO ×2 (05:16→17:42)
[2022-03-28] MEDS: Doxycycline 100 MG CAPSULE PO (05:16)
[2022-03-28] MEDS: busPIRone 5 MG Tablet PO ×2 (05:16→17:41)
[2022-03-28] MEDS: Cephalexin 500 MG Capsule PO (05:16)
[2022-03-28] MEDS: Isosorbide Mononitrate 60 MG Tablet PO (05:16)
[2022-03-28] MEDS: Empagliflozin 10 MG Tablet PO (05:16)
[2022-03-28] MEDS: Clopidogrel Bisulfate 75 MG Tablet PO (05:16)
[2022-03-28] MEDS: Spironolactone 25 MG Tablet PO (05:16)
[2022-03-28] MEDS: Furosemide 80 MG Tablet PO ×2 (05:16→14:28)
[2022-03-28] MEDS: FLUoxetine 20 MG Capsule PO (05:16)
[2022-03-28] MEDS: Gabapentin 300 MG Capsule 900 MG PO ×3 (05:29→21:03)
[2022-03-28] MEDS: Insulin Glargine-YFGN 100 UNIT/ML Pen 35 UNIT SC ×2 (05:38→17:39)
[2022-03-28 06:35] LABS: Bedside Glucose 117 mg/dL (74-106)
[2022-03-28 07:32] VITALS: O2SAT 96
[2022-03-28] MEDS: Aspirin E.C. 81 MG Tablet PO (08:03)
[2022-03-28] MEDS: Carvedilol 6.25 MG Tablet PO ×2 (08:03→17:41)
[2022-03-28] MEDS: Insulin Lispro 100 UNIT/ML INSULN.PEN 23 UNIT SC ×3 (08:03→17:40)
[2022-03-28] MEDS: Fenofibrate 145 MG Tablet PO (08:03)
[2022-03-28] MEDS: Ammonium Lactate 225 gm Bottle 1 APPLIC TOPICAL ×2 (08:04→21:03)
[2022-03-28] MEDS: Petrolatum 33% Tube 1 APPLIC TOPICAL (08:07)
[2022-03-28 09:14] VITALS: O2SAT 98
[2022-03-28 11:47] VITALS: PULSE 61; O2SAT 98
[2022-03-28] MEDS: Ascorbic Acid 500 MG Tablet PO (11:52)
[2022-03-28] MEDS: Ferrous Sulfate 325 MG Tablet PO (11:52)
[2022-03-28 12:06] LABS: Bedside Glucose 147 mg/dL (74-106)
--- NOTE | 2022-03-28 12:58 | CASEMGMT ---
Social Work BIMS () and PHQ-9 (02/23) completed for MDS assessment. Explored positive responses. Pt explains feeling loss of independence, not being able to do what I used to be able to do. Validated and normalized feelings. Pt is motivated with regaining independence by working with therapy. Discussed medication management. Pt stated PCP started him on antidepressant but not sure if it was discontinued. Pt would be agreeable to adjustment, if so. SW left written communication to . Offered support as needed throughout stay. Pt denied aftercare resources at this time. SW to continue to follow. Nesha Andres, FELT FINISHING SUPERVISOR AIRCRAFT CLEANER
[2022-03-28 14:29] VITALS: BP 123/53; PULSE 67; RESP 20; TEMP 36.4; O2SAT 97
[2022-03-28] MEDS: Ondansetron ODT 4 MG Tablet PO (15:37)
[2022-03-28 15:46] LABS: Bedside Glucose 137 mg/dL (74-106)
[2022-03-28 17:35] LABS: Bedside Glucose 157 mg/dL (74-106)
[2022-03-28] MEDS: Insulin Lispro 100 UNIT/ML INSULN.PEN SC (17:40)
[2022-03-28 17:47] VITALS: BP 122/67; PULSE 68
[2022-03-28] MEDS: Nortriptyline 25 MG Capsule PO (21:02)
[2022-03-28] MEDS: Atorvastatin Calcium 80 MG Tablet PO (21:02)
[2022-03-28] MEDS: Pramipexole Di-HCl 0.5 MG Tablet PO (21:03)
[2022-03-28] MEDS: 0.9% Saline Lock 10 ML Syringe IV (21:05)
[2022-03-28 22:10] LABS: Bedside Glucose 138 mg/dL (74-106)
[2022-03-29] MEDS: Gabapentin 300 MG Capsule 900 MG PO ×3 (04:37→21:44)
[2022-03-29] MEDS: busPIRone 5 MG Tablet PO ×2 (04:38→17:38)
[2022-03-29] MEDS: Spironolactone 25 MG Tablet PO (04:39)
[2022-03-29] MEDS: Colestipol 1 GM TABLET PO ×2 (04:39→17:39)
[2022-03-29] MEDS: Furosemide 80 MG Tablet PO (04:40)
[2022-03-29] MEDS: Isosorbide Mononitrate 60 MG Tablet PO (04:40)
[2022-03-29] MEDS: Pantoprazole Sodium 40 MG Tablet PO (04:41)
[2022-03-29] MEDS: Clopidogrel Bisulfate 75 MG Tablet PO (04:41)
[2022-03-29] MEDS: Empagliflozin 10 MG Tablet PO (04:42)
[2022-03-29] MEDS: Lisinopril 20 MG Tablet PO (04:42)
[2022-03-29] MEDS: Ammonium Lactate 225 gm Bottle 1 APPLIC TOPICAL ×2 (04:45→21:43)
[2022-03-29] MEDS: FLUoxetine 10 MG Capsule 30 MG PO (04:45)
[2022-03-29] MEDS: Latanoprost 0.005% 1 Bottle 1 DRP EACH EYE ×3 (04:46→21:46)
[2022-03-29] MEDS: Petrolatum 33% Tube 1 APPLIC TOPICAL (04:47)
[2022-03-29 06:31] LABS: Bedside Glucose 82 mg/dL (74-106)
[2022-03-29 08:00] LABS: Absolute Lymphocyte Count 0.73 X10^3/uL (0.83-4.51); Absolute Neutrophil Count 5.1 X10^3/uL (2.0-7.7); Basophil# 0.03 X10^3/uL; Basophil% 0.4 % (0-1); Eosinophil# 0.15 X10^3/uL; Eosinophils% 2.2 % (0-5); Hematocrit 32.4 % (40-54); Hemoglobin 9.5 g/dL (13.0-16.5); Lymphocyte # 0.73 X10^3/ul (0.83-4.51); Lymphocyte % 10.6 % (19-41); Mean Corp Hgb Conc 29.3 g/dL (32-36); Mean Corpuscular Hgb 23.1 pg (27.0-32.0); Mean Corpuscular Volume 78.8 fL (80-94); Mean Platelet Vol. 10.1 fl (6.2-12.0); Monocyte# 0.76 X10^3/uL; Monocyte% 11.1 % (0-10); NRBC Flagged by Analyzer 0 % (0-5); Neutrophil # 5.13 X10^3/uL (2.7-7.7); Neutrophil % 74.7 % (47-70); POSITIVE MORPHOLOGY YES; Platelet Count 159 K/mm3 (150-450); RBC Distribution Width CV 22.5 % (11.6-14.6); RBC Distribution Width SD 59.7 fl (35.1-43.9); Red Blood Count 4.11 M/mm3 (4.6-6.2); White Blood Count 6.9 K/mm3 (4.4-11.0)
[2022-03-29] MEDS: Insulin Glargine-YFGN 100 UNIT/ML Pen 35 UNIT SC ×2 (08:12→17:37)
[2022-03-29 08:16] LABS: Differential Indicated SCAN CRITERIA MET
[2022-03-29] MEDS: Aspirin E.C. 81 MG Tablet PO (08:17)
[2022-03-29] MEDS: Fenofibrate 145 MG Tablet PO (08:18)
[2022-03-29] MEDS: Carvedilol 6.25 MG Tablet PO ×2 (08:18→17:37)
[2022-03-29 08:25] LABS: Anion Gap 3 (5-15); BUN 42 mg/dL (7-18); BUN/Creat Ratio 21.9 RATIO (10-20); Calcium,Total 8.5 mg/dL (8.5-10.1); Chloride 103 mmol/L (98-107); Creatinine, Serum 1.92 mg/dL (0.70-1.30); EST Glomerular Filtration Rate 36 mL/min (>60); Est Glom Filt Rate - Afr Amer 44 mL/min (>60); Estimated Creatinine Clearance 31.67 ml/min; Glucose 85 mg/dL (74-106); Potassium 4.5 mmol/L (3.5-5.1); Sodium Level 138 mmol/L (136-145)
[2022-03-29] MEDS: Insulin Lispro 100 UNIT/ML INSULN.PEN 23 UNIT SC ×3 (08:52→17:39)
[2022-03-29 09:50] LABS: Anisocytosis 2+; Differential Comment SCANNED; Macrocytosis 1+; Microcytosis 1+
[2022-03-29 10:00] VITALS: PULSE 66; RESP 18; O2SAT 99
[2022-03-29] MEDS: Senna/Docusate Sodium 1 Tablet 2 TABLET PO (10:35)
[2022-03-29 10:45] VITALS: O2SAT 97
[2022-03-29] MEDS: Ascorbic Acid 500 MG Tablet PO (11:20)
[2022-03-29] MEDS: Ferrous Sulfate 325 MG Tablet PO (11:20)
[2022-03-29] MEDS: Tuberculin,Purif.prot.deriv. 50 TU/ML Vial 0.1 ML ID (11:20)
[2022-03-29] MEDS: Insulin Lispro 100 UNIT/ML INSULN.PEN SC ×2 (11:24→22:05)
[2022-03-29 11:45] LABS: Bedside Glucose 179 mg/dL (74-106)
[2022-03-29 14:35] LABS: Bedside Glucose 120 mg/dL (74-106)
[2022-03-29 14:41] VITALS: BP 82/48; PULSE 60; RESP 18; TEMP 36.1; O2SAT 96
[2022-03-29] MEDS: Ondansetron ODT 4 MG Tablet PO (15:03)
[2022-03-29 15:45] VITALS: BP 108/63; PULSE 64; RESP 18; TEMP 36.2; O2SAT 97
[2022-03-29] MEDS: 0.9% Saline Lock 10 ML Syringe IV (16:10)
[2022-03-29] MEDS: Bisacodyl 10 MG Suppository RC (16:25)
[2022-03-29 16:46] LABS: Bedside Glucose 102 mg/dL (74-106)
--- NOTE | 2022-03-29 17:49 | NURSING ---
1410; Pt called out stating he was dizzy and nauseated. bp noted to be in 70/40's per vs machine. Pt assisted to bed. Verified with manual cuff at 82/48. hr 64 and regular. Skin warm and dry. Blood glucose 120. Notified Dr. Wisdom. Orders received. Pt given 500 ml NS bolus. Post VS 108/63. States dizziness has subsided after bolus was completed. VSS 108/63. HR 66 reg, 97.3, 16, 97% on 2 l per nc. RR 18. Pt states stool is hard to push out. Instructed pt not to bear down. Suppository given to pt. Earlier today 2 senna were given as well. Will follow bowel protocol for pt. Pt states he is going it is just hard to push out Vital signs taken 1 hr post normal saline bolus at 1745 111/63, hr 64, 16, 97.4, 97% on 2 l per nc. Pt is sitting in chair denies dizziness or nausea. He is able to eat his dinner at this time without difficulty. Pt instructed to call nurse with any complaints or changes in the way he feels. Pt verbalizes understanding.
[2022-03-29 21:00] VITALS: RESP 16; O2SAT 98
[2022-03-29 21:35] LABS: Bedside Glucose 150 mg/dL (74-106)
[2022-03-29] MEDS: Atorvastatin Calcium 80 MG Tablet PO (21:43)
[2022-03-29] MEDS: Pramipexole Di-HCl 0.5 MG Tablet PO (21:44)
[2022-03-29] MEDS: Nortriptyline 25 MG Capsule PO (21:46)
[2022-03-29 21:50] LABS: Bedside Glucose 162 mg/dL (74-106)
[2022-03-30] MEDS: Clopidogrel Bisulfate 75 MG Tablet PO (06:20)
[2022-03-30] MEDS: FLUoxetine 10 MG Capsule 30 MG PO (06:20)
[2022-03-30] MEDS: Furosemide 80 MG Tablet PO ×2 (06:20→14:54)
[2022-03-30] MEDS: Empagliflozin 10 MG Tablet PO (06:20)
[2022-03-30] MEDS: Colestipol 1 GM TABLET PO ×2 (06:20→17:53)
[2022-03-30] MEDS: Pantoprazole Sodium 40 MG Tablet PO (06:20)
[2022-03-30] MEDS: busPIRone 5 MG Tablet PO ×2 (06:20→17:53)
[2022-03-30] MEDS: Isosorbide Mononitrate 60 MG Tablet PO (06:21)
[2022-03-30] MEDS: Spironolactone 25 MG Tablet PO (06:21)
[2022-03-30] MEDS: Gabapentin 300 MG Capsule 900 MG PO ×3 (06:25→21:55)
[2022-03-30] MEDS: Latanoprost 0.005% 1 Bottle 1 DRP EACH EYE ×3 (06:26→21:57)
[2022-03-30] MEDS: Lisinopril 20 MG Tablet PO (06:27)
[2022-03-30] MEDS: Petrolatum 33% Tube 1 APPLIC TOPICAL (06:28)
[2022-03-30] MEDS: Ammonium Lactate 225 gm Bottle 1 APPLIC TOPICAL ×2 (06:28→21:55)
[2022-03-30 06:41] LABS: Bedside Glucose 80 mg/dL (74-106)
[2022-03-30] MEDS: Aspirin E.C. 81 MG Tablet PO (08:05)
[2022-03-30] MEDS: Carvedilol 6.25 MG Tablet PO ×2 (08:05→17:52)
[2022-03-30] MEDS: Fenofibrate 145 MG Tablet PO (08:05)
[2022-03-30] MEDS: Insulin Glargine-YFGN 100 UNIT/ML Pen 35 UNIT SC (08:05)
[2022-03-30] MEDS: Insulin Lispro 100 UNIT/ML INSULN.PEN 23 UNIT SC ×2 (08:06→11:58)
[2022-03-30 08:30] LABS: Bedside Glucose 136 mg/dL (74-106)
[2022-03-30 11:40] LABS: Bedside Glucose 184 mg/dL (74-106)
[2022-03-30] MEDS: Ferrous Sulfate 325 MG Tablet PO (11:59)
[2022-03-30] MEDS: Insulin Lispro 100 UNIT/ML INSULN.PEN SC ×2 (11:59→23:03)
[2022-03-30] MEDS: Ascorbic Acid 500 MG Tablet PO (11:59)
[2022-03-30 15:00] VITALS: BP 122/68; PULSE 65; RESP 18; TEMP 36.6; O2SAT 98
[2022-03-30 17:40] LABS: Bedside Glucose 80 mg/dL (74-106)
[2022-03-30 18:20] LABS: Bedside Glucose 91 mg/dL (74-106)
[2022-03-30 18:56] LABS: Bedside Glucose 106 mg/dL (74-106)
[2022-03-30] MEDS: Atorvastatin Calcium 80 MG Tablet PO (21:56)
[2022-03-30] MEDS: Pramipexole Di-HCl 0.5 MG Tablet PO (21:57)
[2022-03-30] MEDS: Nortriptyline 25 MG Capsule PO (21:57)
[2022-03-30 22:11] VITALS: PULSE 64; RESP 18; O2SAT 99
[2022-03-31] VITALS (7 sets, daily range): BP systolic 99–120; BP diastolic 53–72; PULSE 61–68; RESP 18; TEMP 36.1; O2SAT 96–99
[2022-03-31 00:15] LABS: Bedside Glucose 181 mg/dL (74-106)
[2022-03-31] MEDS: Gabapentin 300 MG Capsule 900 MG PO ×3 (06:07→22:14)
[2022-03-31] MEDS: Clopidogrel Bisulfate 75 MG Tablet PO (06:08)
[2022-03-31] MEDS: Pantoprazole Sodium 40 MG Tablet PO (06:08)
[2022-03-31] MEDS: Isosorbide Mononitrate 60 MG Tablet PO (06:08)
[2022-03-31] MEDS: Furosemide 80 MG Tablet PO ×2 (06:08→14:31)
[2022-03-31] MEDS: Colestipol 1 GM TABLET PO ×2 (06:08→17:43)
[2022-03-31] MEDS: FLUoxetine 10 MG Capsule 30 MG PO (06:08)
[2022-03-31] MEDS: Spironolactone 25 MG Tablet PO (06:08)
[2022-03-31] MEDS: Empagliflozin 10 MG Tablet PO (06:08)
[2022-03-31] MEDS: busPIRone 5 MG Tablet PO ×2 (06:08→17:43)
[2022-03-31] MEDS: Lisinopril 20 MG Tablet PO (06:09)
[2022-03-31] MEDS: Petrolatum 33% Tube 1 APPLIC TOPICAL (06:09)
[2022-03-31] MEDS: Ammonium Lactate 225 gm Bottle 1 APPLIC TOPICAL ×2 (06:09→22:17)
[2022-03-31] MEDS: Latanoprost 0.005% 1 Bottle 1 DRP EACH EYE ×3 (06:10→22:13)
[2022-03-31 06:30] LABS: Bedside Glucose 155 mg/dL (74-106)
[2022-03-31] MEDS: Insulin Glargine-YFGN 100 UNIT/ML Pen 35 UNIT SC ×2 (07:51→18:46)
[2022-03-31] MEDS: Insulin Lispro 100 UNIT/ML INSULN.PEN 23 UNIT SC ×3 (07:51→17:41)
[2022-03-31] MEDS: Fenofibrate 145 MG Tablet PO (07:52)
[2022-03-31] MEDS: Carvedilol 6.25 MG Tablet PO ×2 (07:52→17:43)
[2022-03-31] MEDS: Insulin Lispro 100 UNIT/ML INSULN.PEN SC ×2 (07:52→12:08)
[2022-03-31] MEDS: Aspirin E.C. 81 MG Tablet PO (07:52)
[2022-03-31 08:01] LABS: International Normalized Ratio 2.2; Prothrombin Time (Protime)PT. 24.3 SECONDS (11.7-14.9)
--- NOTE | 2022-03-31 09:08 | NURSING ---
Registered Midwife Note; MDS for 03/28/2022 Complete
[2022-03-31 11:20] LABS: Bedside Glucose 158 mg/dL (74-106)
[2022-03-31] MEDS: Ascorbic Acid 500 MG Tablet PO (12:09)
[2022-03-31] MEDS: Ferrous Sulfate 325 MG Tablet PO (12:09)
[2022-03-31 17:05] LABS: Bedside Glucose 138 mg/dL (74-106)
[2022-03-31] MEDS: 0.9% Saline Lock 10 ML Syringe IV (18:22)
[2022-03-31 21:40] LABS: Bedside Glucose 127 mg/dL (74-106)
[2022-03-31] MEDS: Nortriptyline 25 MG Capsule PO (22:14)
[2022-03-31] MEDS: Pramipexole Di-HCl 0.5 MG Tablet PO (22:14)
[2022-03-31] MEDS: Atorvastatin Calcium 80 MG Tablet PO (22:14)
[2022-04-01] MEDS: Clopidogrel Bisulfate 75 MG Tablet PO (05:02)
[2022-04-01] MEDS: Isosorbide Mononitrate 60 MG Tablet PO (05:02)
[2022-04-01] MEDS: Empagliflozin 10 MG Tablet PO (05:02)
[2022-04-01] MEDS: busPIRone 5 MG Tablet PO ×2 (05:02→18:14)
[2022-04-01] MEDS: Lisinopril 20 MG Tablet PO (05:02)
[2022-04-01] MEDS: Colestipol 1 GM TABLET PO ×2 (05:02→18:14)
[2022-04-01] MEDS: Pantoprazole Sodium 40 MG Tablet PO (05:02)
[2022-04-01] MEDS: Furosemide 80 MG Tablet PO (05:02)
[2022-04-01] MEDS: Spironolactone 25 MG Tablet PO (05:03)
[2022-04-01] MEDS: Latanoprost 0.005% 1 Bottle 1 DRP EACH EYE ×3 (05:03→22:15)
[2022-04-01] MEDS: FLUoxetine 10 MG Capsule 30 MG PO (05:05)
[2022-04-01] MEDS: Ammonium Lactate 225 gm Bottle 1 APPLIC TOPICAL (05:05)
[2022-04-01] MEDS: Petrolatum 33% Tube 1 APPLIC TOPICAL (05:09)
[2022-04-01] MEDS: Gabapentin 300 MG Capsule 900 MG PO ×3 (05:09→22:19)
[2022-04-01] MEDS: Insulin Glargine-YFGN 100 UNIT/ML Pen 35 UNIT SC ×2 (05:17→18:12)
[2022-04-01 05:30] VITALS: BP 143/69; PULSE 66; RESP 18; TEMP 36.2; O2SAT 93
[2022-04-01 05:51] LABS: Bedside Glucose 134 mg/dL (74-106)
[2022-04-01 07:21] VITALS: O2SAT 86
--- NOTE | 2022-04-01 07:22 | CPS ---
Found pt on RA with a sat at 86%. Pt took off his CPAP and didnt place NC back in nose. placed back on 2L LESLEE, RN aware.
--- NOTE | 2022-04-01 07:52 | RAD_ITS ---
STUDY: X-RAY - ABDOMEN/PELVIS REASON FOR EXAM: Male, 76 years old. Nausea Constipation . Abdominal pain. TECHNIQUE: Single AP view of the abdomen / pelvis. COMPARISON: None. FINDINGS: Normal visualized lung bases. There is a moderate amount of colonic fecal material. The visualized liver, spleen and kidneys are grossly normal in size and morphology. Normal soft tissue structures. There are diffuse degenerative changes of the visualized lumbar spine. RAD/Abdomen Single View IMPRESSION: Moderate amount of fecal material is seen in the colon. Electronically Signed: Cosmo Malone MD at 8:50 EST ,
[2022-04-01 07:57] VITALS: O2SAT 87
[2022-04-01] MEDS: Insulin Lispro 100 UNIT/ML INSULN.PEN 23 UNIT SC ×3 (08:21→18:12)
[2022-04-01] MEDS: Aspirin E.C. 81 MG Tablet PO (08:21)
[2022-04-01] MEDS: Fenofibrate 145 MG Tablet PO (08:21)
[2022-04-01] MEDS: Carvedilol 6.25 MG Tablet PO ×2 (08:21→18:14)
[2022-04-01 08:27] VITALS: BP 104/58; PULSE 73
[2022-04-01 11:55] LABS: Bedside Glucose 177 mg/dL (74-106)
[2022-04-01] MEDS: Ferrous Sulfate 325 MG Tablet PO (12:31)
[2022-04-01] MEDS: Insulin Lispro 100 UNIT/ML INSULN.PEN SC (12:31)
[2022-04-01] MEDS: Ascorbic Acid 500 MG Tablet PO (12:31)
[2022-04-01] MEDS: Electrolyte Solution/Peg's 4000 ML 1000 ML PO (13:02)
[2022-04-01 14:04] VITALS: BP 98/61; PULSE 72; RESP 20; TEMP 36.4; O2SAT 99
[2022-04-01 16:55] LABS: Bedside Glucose 131 mg/dL (74-106)
[2022-04-01] MEDS: 0.9% Saline Lock 10 ML Syringe IV (18:23)
[2022-04-01 22:00] VITALS: PULSE 74; RESP 18; O2SAT 91
[2022-04-01] MEDS: Pramipexole Di-HCl 0.5 MG Tablet PO (22:19)
[2022-04-01] MEDS: Atorvastatin Calcium 80 MG Tablet PO (22:19)
[2022-04-01] MEDS: Nortriptyline 25 MG Capsule PO (22:19)
[2022-04-01 22:40] LABS: Bedside Glucose 99 mg/dL (74-106)
[2022-04-02] MEDS: Latanoprost 0.005% 1 Bottle 1 DRP EACH EYE ×3 (06:09→20:33)
[2022-04-02] MEDS: Pantoprazole Sodium 40 MG Tablet PO (06:10)
[2022-04-02] MEDS: FLUoxetine 10 MG Capsule 40 MG PO (06:10)
[2022-04-02] MEDS: Lisinopril 20 MG Tablet PO (06:10)
[2022-04-02] MEDS: Empagliflozin 10 MG Tablet PO (06:11)
[2022-04-02] MEDS: Spironolactone 25 MG Tablet PO (06:12)
[2022-04-02] MEDS: Furosemide 80 MG Tablet PO ×2 (06:12→13:28)
[2022-04-02] MEDS: busPIRone 5 MG Tablet PO ×2 (06:12→17:50)
[2022-04-02] MEDS: Colestipol 1 GM TABLET PO ×2 (06:12→17:49)
[2022-04-02] MEDS: Isosorbide Mononitrate 60 MG Tablet PO (06:13)
[2022-04-02] MEDS: Clopidogrel Bisulfate 75 MG Tablet PO (06:13)
[2022-04-02] MEDS: Gabapentin 300 MG Capsule 900 MG PO ×3 (06:16→20:38)
[2022-04-02] MEDS: Petrolatum 33% Tube 1 APPLIC TOPICAL (06:18)
[2022-04-02 06:21] LABS: Bedside Glucose 129 mg/dL (74-106)
[2022-04-02] MEDS: Insulin Glargine-YFGN 100 UNIT/ML Pen 35 UNIT SC ×2 (06:24→17:48)
[2022-04-02] MEDS: Insulin Lispro 100 UNIT/ML INSULN.PEN 23 UNIT SC ×3 (08:02→17:50)
[2022-04-02] MEDS: Fenofibrate 145 MG Tablet PO (08:03)
[2022-04-02] MEDS: Aspirin E.C. 81 MG Tablet PO (08:03)
[2022-04-02] MEDS: Carvedilol 6.25 MG Tablet PO ×2 (08:03→17:50)
[2022-04-02 08:08] VITALS: BP 120/64; PULSE 73; O2SAT 96
[2022-04-02 09:25] VITALS: PULSE 80; RESP 18; O2SAT 94
[2022-04-02 10:57] VITALS: O2SAT 97
--- NOTE | 2022-04-02 11:34 | NURSING ---
DR MORAES UPDATED ON REDDENED LEGS AFTER USING LAC HYTRIN. NEW ORDER TO dc LOTION AND STARTED MEDROL DOSE BALA. PT UPDATED.
[2022-04-02 11:55] LABS: Bedside Glucose 151 mg/dL (74-106)
[2022-04-02] MEDS: Insulin Lispro 100 UNIT/ML INSULN.PEN SC ×3 (11:59→22:01)
[2022-04-02] MEDS: Ferrous Sulfate 325 MG Tablet PO (11:59)
[2022-04-02] MEDS: MethylPREDNISolone DosePak 4 MG BOX PO ×3 (11:59→20:33)
[2022-04-02] MEDS: Ascorbic Acid 500 MG Tablet PO (12:00)
[2022-04-02 14:34] VITALS: BP 108/55; PULSE 67; RESP 18; TEMP 36; O2SAT 98
[2022-04-02 18:00] LABS: Bedside Glucose 180 mg/dL (74-106)
[2022-04-02] MEDS: 0.9% Saline Lock 10 ML Syringe IV (18:55)
[2022-04-02] MEDS: Pramipexole Di-HCl 0.5 MG Tablet PO (20:38)
[2022-04-02] MEDS: Atorvastatin Calcium 80 MG Tablet PO (20:38)
[2022-04-02] MEDS: Nortriptyline 25 MG Capsule PO (20:38)
[2022-04-02 20:45] VITALS: PULSE 88; RESP 20
[2022-04-02] MEDS: Albuterol 2.5 MG/3 ML VIAL.NEB. INHALATION (20:45)
[2022-04-02 21:50] LABS: Bedside Glucose 229 mg/dL (74-106)
[2022-04-03] MEDS: Clopidogrel Bisulfate 75 MG Tablet PO (06:20)
[2022-04-03] MEDS: Empagliflozin 10 MG Tablet PO (06:20)
[2022-04-03] MEDS: Pantoprazole Sodium 40 MG Tablet PO (06:20)
[2022-04-03] MEDS: Furosemide 80 MG Tablet PO ×2 (06:20→14:46)
[2022-04-03] MEDS: Lisinopril 20 MG Tablet PO (06:20)
[2022-04-03] MEDS: FLUoxetine 10 MG Capsule 40 MG PO (06:20)
[2022-04-03] MEDS: busPIRone 5 MG Tablet PO ×2 (06:20→18:02)
[2022-04-03] MEDS: Isosorbide Mononitrate 60 MG Tablet PO (06:20)
[2022-04-03] MEDS: Colestipol 1 GM TABLET PO ×2 (06:20→18:02)
[2022-04-03] MEDS: Spironolactone 25 MG Tablet PO (06:21)
[2022-04-03] MEDS: Petrolatum 33% Tube 1 APPLIC TOPICAL (06:21)
[2022-04-03] MEDS: Latanoprost 0.005% 1 Bottle 1 DRP EACH EYE ×3 (06:22→20:16)
[2022-04-03] MEDS: Insulin Glargine-YFGN 100 UNIT/ML Pen 35 UNIT SC ×2 (06:23→17:55)
[2022-04-03] MEDS: Gabapentin 300 MG Capsule 900 MG PO ×3 (06:27→20:22)
[2022-04-03 06:29] LABS: International Normalized Ratio 2.7; Prothrombin Time (Protime)PT. 27.9 SECONDS (11.7-14.9)
[2022-04-03 06:41] LABS: Bedside Glucose 158 mg/dL (74-106)
[2022-04-03] MEDS: Insulin Lispro 100 UNIT/ML INSULN.PEN 23 UNIT SC ×4 (08:00→21:35)
[2022-04-03] MEDS: Aspirin E.C. 81 MG Tablet PO (08:00)
[2022-04-03] MEDS: Carvedilol 6.25 MG Tablet PO ×2 (08:00→18:03)
[2022-04-03] MEDS: Fenofibrate 145 MG Tablet PO (08:00)
[2022-04-03] MEDS: Insulin Lispro 100 UNIT/ML INSULN.PEN SC ×3 (08:00→17:56)
[2022-04-03] MEDS: MethylPREDNISolone DosePak 4 MG BOX PO ×4 (08:01→20:16)
[2022-04-03 11:41] LABS: Bedside Glucose 207 mg/dL (74-106)
[2022-04-03] MEDS: Ascorbic Acid 500 MG Tablet PO (11:57)
[2022-04-03] MEDS: Ferrous Sulfate 325 MG Tablet PO (11:57)
--- NOTE | 2022-04-03 12:42 | MDS.RN ---
Information for the mds was obtained from review of the clinical record, interview of resident, staff, and direct observation of resident's care.
[2022-04-03 14:54] VITALS: BP 126/64; PULSE 72
[2022-04-03 15:38] VITALS: BP 126/64; PULSE 72; RESP 18; TEMP 36.1; O2SAT 99
--- NOTE | 2022-04-03 17:30 | NURSING ---
Dr. Wisdom updated on pt's INR of 2.[address] Artis lind to give Warfarin.
[2022-04-03] MEDS: Doxycycline 100 MG CAPSULE PO (18:02)
[2022-04-03] MEDS: Cephalexin 500 MG Capsule PO (18:02)
--- NOTE | 2022-04-03 19:00 | NURSING ---
Pt updated on positive resident tried to call and no voicemail set up.
[2022-04-03] MEDS: Nortriptyline 25 MG Capsule PO (20:15)
[2022-04-03] MEDS: Pramipexole Di-HCl 0.5 MG Tablet PO (20:16)
[2022-04-03] MEDS: Atorvastatin Calcium 80 MG Tablet PO (20:16)
--- NOTE | 2022-04-03 21:30 | NURSING ---
Blood glucose taken - results 247 (not transferring from glucometer to lab results).
--- NOTE | 2022-04-03 21:49 | NURSING ---
Dr. Wisdom updated on Humalog administration.
[2022-04-03 22:00] VITALS: PULSE 78; RESP 18; O2SAT 97
--- NOTE | 2022-04-03 22:43 | NURSING ---
Blood glucose taken - results 227 (not transferring from glucometer to lab results).
--- NOTE | 2022-04-04 04:45 | NURSING ---
Blood sugar level 133 - (glucometer not translating to system).
[2022-04-04] MEDS: Isosorbide Mononitrate 60 MG Tablet PO (04:56)
[2022-04-04] MEDS: busPIRone 5 MG Tablet PO ×2 (04:56→17:27)
[2022-04-04] MEDS: Spironolactone 25 MG Tablet PO (04:56)
[2022-04-04] MEDS: Pantoprazole Sodium 40 MG Tablet PO (04:57)
[2022-04-04] MEDS: Furosemide 80 MG Tablet PO ×2 (04:57→14:01)
[2022-04-04] MEDS: Clopidogrel Bisulfate 75 MG Tablet PO (04:57)
[2022-04-04] MEDS: Cephalexin 500 MG Capsule PO ×2 (04:57→21:25)
[2022-04-04] MEDS: FLUoxetine 10 MG Capsule 40 MG PO (04:57)
[2022-04-04] MEDS: Empagliflozin 10 MG Tablet PO (04:57)
[2022-04-04] MEDS: Doxycycline 100 MG CAPSULE PO ×2 (04:58→21:26)
[2022-04-04] MEDS: Colestipol 1 GM TABLET PO ×2 (04:58→17:27)
[2022-04-04] MEDS: Latanoprost 0.005% 1 Bottle 1 DRP EACH EYE ×3 (04:59→21:25)
[2022-04-04] MEDS: Lisinopril 20 MG Tablet PO (04:59)
[2022-04-04 05:00] VITALS: BP 130/72; PULSE 65
[2022-04-04] MEDS: Gabapentin 300 MG Capsule 900 MG PO ×3 (05:06→21:15)
[2022-04-04] MEDS: Insulin Glargine-YFGN 100 UNIT/ML Pen 35 UNIT SC ×2 (05:10→17:53)
[2022-04-04] MEDS: 0.9% Saline Lock 10 ML Syringe IV ×2 (05:13→21:16)
[2022-04-04] MEDS: Petrolatum 33% Tube 1 APPLIC TOPICAL (05:14)
[2022-04-04 07:40] VITALS: O2SAT 99
[2022-04-04] MEDS: Aspirin E.C. 81 MG Tablet PO (08:29)
[2022-04-04] MEDS: Insulin Lispro 100 UNIT/ML INSULN.PEN 23 UNIT SC ×3 (08:29→17:53)
[2022-04-04] MEDS: MethylPREDNISolone DosePak 4 MG BOX PO ×4 (08:29→21:16)
[2022-04-04] MEDS: Carvedilol 6.25 MG Tablet PO ×2 (08:29→17:27)
[2022-04-04] MEDS: Fenofibrate 145 MG Tablet PO (08:29)
[2022-04-04 08:40] LABS: Bedside Glucose 177 mg/dL (74-106)
[2022-04-04 08:40] LABS: Bedside Glucose 247 mg/dL (74-106)
[2022-04-04 08:40] LABS: Bedside Glucose 223 mg/dL (74-106)
[2022-04-04 08:41] LABS: Bedside Glucose 133 mg/dL (74-106)
--- NOTE | 2022-04-04 09:33 | WOUNDNOTE ---
Was asked to see patient to assess bilateral lower legs. patient had been using NIYA wraps to bilateral lower legs. there is hemosiderin staining noted to bilateral lower legs. some mild edema noted. there is some dry flaking skin noted. thick calloused skin noted to bilateral feet with a few fissures noted. washed legs and feet with soap and water. pat dry. applied aloe vesta to bilateral feet. wrapped bilateral shins with raquel since there are a few small weeping areas noted. no large wounds noted. pt tolerated well. will monitor.
[2022-04-04 10:00] VITALS: PULSE 73; O2SAT 96
[2022-04-04 11:25] LABS: Bedside Glucose 237 mg/dL (74-106)
[2022-04-04] MEDS: Ferrous Sulfate 325 MG Tablet PO (11:54)
[2022-04-04] MEDS: Ascorbic Acid 500 MG Tablet PO (11:54)
[2022-04-04] MEDS: Ondansetron ODT 4 MG Tablet PO (13:08)
[2022-04-04 14:58] VITALS: BP 127/74; PULSE 66; RESP 19; TEMP 36.2; O2SAT 97
[2022-04-04] MEDS: APIXABAN 5 MG TABLET 10 MG PO (17:27)
[2022-04-04 17:35] LABS: Bedside Glucose 149 mg/dL (74-106)
[2022-04-04] MEDS: Senna/Docusate Sodium 1 Tablet 2 TABLET PO (17:35)
[2022-04-04] MEDS: Nortriptyline 25 MG Capsule PO (21:25)
[2022-04-04] MEDS: Pramipexole Di-HCl 0.5 MG Tablet PO (21:26)
[2022-04-04] MEDS: Atorvastatin Calcium 80 MG Tablet PO (21:26)
[2022-04-05] MEDS: Latanoprost 0.005% 1 Bottle 1 DRP EACH EYE ×3 (06:22→21:12)
[2022-04-05 06:26] LABS: Absolute Neutrophil Count 8.2 X10^3/uL (2.0-7.7); Basophil# 0.02 X10^3/uL; Basophil% 0.2 % (0-1); Eosinophil# 0.07 X10^3/uL; Eosinophils% 0.7 % (0-5); Hematocrit 37.1 % (40-54); Mean Corp Hgb Conc 29.6 g/dL (32-36); Mean Corpuscular Hgb 23.2 pg (27.0-32.0); Mean Corpuscular Volume 78.3 fL (80-94); Mean Platelet Vol. 9.2 fl (6.2-12.0); Monocyte# 0.66 X10^3/uL; Monocyte% 6.6 % (0-10); NRBC Flagged by Analyzer 0 % (0-5); Neutrophil # 8.21 X10^3/uL (2.7-7.7); Neutrophil % 82.6 % (47-70); POSITIVE MORPHOLOGY YES; Platelet Count 241 K/mm3 (150-450); RBC Distribution Width CV 25.3 % (11.6-14.6); RBC Distribution Width SD 69.6 fl (35.1-43.9); Red Blood Count 4.74 M/mm3 (4.6-6.2)
[2022-04-05] MEDS: Senna/Docusate Sodium 1 Tablet 2 TABLET PO ×2 (06:26→13:43)
[2022-04-05] MEDS: Lisinopril 20 MG Tablet PO (06:26)
[2022-04-05] MEDS: Gabapentin 300 MG Capsule 900 MG PO ×3 (06:27→21:11)
[2022-04-05] MEDS: Spironolactone 25 MG Tablet PO (06:27)
[2022-04-05] MEDS: APIXABAN 5 MG TABLET 10 MG PO ×2 (06:27→17:52)
[2022-04-05] MEDS: Colestipol 1 GM TABLET PO ×2 (06:27→17:56)
[2022-04-05] MEDS: FLUoxetine 10 MG Capsule 40 MG PO (06:27)
[2022-04-05] MEDS: Isosorbide Mononitrate 60 MG Tablet PO (06:28)
[2022-04-05] MEDS: Empagliflozin 10 MG Tablet PO (06:28)
[2022-04-05] MEDS: Furosemide 80 MG Tablet PO ×2 (06:28→13:28)
[2022-04-05] MEDS: busPIRone 5 MG Tablet PO ×2 (06:28→17:51)
[2022-04-05] MEDS: Pantoprazole Sodium 40 MG Tablet PO (06:28)
[2022-04-05] MEDS: Insulin Glargine-YFGN 100 UNIT/ML Pen 35 UNIT SC ×2 (06:32→17:53)
[2022-04-05 06:45] LABS: Bedside Glucose 189 mg/dL (74-106)
[2022-04-05 07:04] LABS: Differential Indicated SCAN CRITERIA MET
[2022-04-05 07:08] LABS: Anion Gap 8 (5-15); BUN 46 mg/dL (7-18); BUN/Creat Ratio 25.6 RATIO (10-20); Calcium,Total 9.2 mg/dL (8.5-10.1); Chloride 99 mmol/L (98-107); EST Glomerular Filtration Rate 39 mL/min (>60); Est Glom Filt Rate - Afr Amer 47 mL/min (>60); Estimated Creatinine Clearance 33.78 ml/min; Glucose 190 mg/dL (74-106); Potassium 4.6 mmol/L (3.5-5.1); Sodium Level 135 mmol/L (136-145)
[2022-04-05 07:43] LABS: Anisocytosis 2+; Ovalocyte 1+
[2022-04-05] MEDS: Doxycycline 100 MG CAPSULE PO ×2 (08:42→21:11)
[2022-04-05] MEDS: Carvedilol 6.25 MG Tablet PO ×2 (08:42→17:53)
[2022-04-05] MEDS: Fenofibrate 145 MG Tablet PO (08:44)
[2022-04-05] MEDS: Cephalexin 500 MG Capsule PO ×2 (08:44→21:11)
[2022-04-05] MEDS: MethylPREDNISolone DosePak 4 MG BOX PO ×3 (08:45→21:11)
[2022-04-05] MEDS: Insulin Lispro 100 UNIT/ML INSULN.PEN 23 UNIT SC ×3 (08:47→17:52)
[2022-04-05] MEDS: Petrolatum 33% Tube 1 APPLIC TOPICAL (08:49)
[2022-04-05 10:46] LABS: Bedside Glucose 269 mg/dL (74-106)
[2022-04-05] MEDS: Ferrous Sulfate 325 MG Tablet PO (13:28)
[2022-04-05] MEDS: Ascorbic Acid 500 MG Tablet PO (13:29)
[2022-04-05 16:00] VITALS: BP 137/74; PULSE 99; RESP 20; TEMP 35.7; O2SAT 99
[2022-04-05 17:10] LABS: Bedside Glucose 134 mg/dL (74-106)
[2022-04-05 20:31] VITALS: PULSE 70; RESP 18; O2SAT 97
[2022-04-05] MEDS: Pramipexole Di-HCl 0.5 MG Tablet PO (21:11)
[2022-04-05] MEDS: Nortriptyline 25 MG Capsule PO (21:11)
[2022-04-05] MEDS: Atorvastatin Calcium 80 MG Tablet PO (21:11)
[2022-04-05 23:38] VITALS: O2SAT 97
[2022-04-06 01:01] LABS: Bedside Glucose 171 mg/dL (74-106)
[2022-04-06 05:15] VITALS: BP 102/57; PULSE 60
[2022-04-06] MEDS: APIXABAN 5 MG TABLET 10 MG PO ×2 (05:16→17:43)
[2022-04-06] MEDS: Spironolactone 25 MG Tablet PO (05:17)
[2022-04-06] MEDS: Furosemide 80 MG Tablet PO ×2 (05:18→14:53)
[2022-04-06] MEDS: Isosorbide Mononitrate 60 MG Tablet PO (05:18)
[2022-04-06] MEDS: busPIRone 5 MG Tablet PO ×2 (05:18→17:43)
[2022-04-06] MEDS: Pantoprazole Sodium 40 MG Tablet PO (05:18)
[2022-04-06] MEDS: Colestipol 1 GM TABLET PO ×2 (05:19→17:47)
[2022-04-06] MEDS: FLUoxetine 10 MG Capsule 40 MG PO (05:20)
[2022-04-06] MEDS: Empagliflozin 10 MG Tablet PO (05:21)
[2022-04-06] MEDS: Lisinopril 20 MG Tablet PO (05:21)
[2022-04-06] MEDS: Latanoprost 0.005% 1 Bottle 1 DRP EACH EYE ×3 (05:22→20:50)
[2022-04-06] MEDS: Petrolatum 33% Tube 1 APPLIC TOPICAL (05:24)
[2022-04-06] MEDS: Senna/Docusate Sodium 1 Tablet 2 TABLET PO (05:27)
[2022-04-06] MEDS: Gabapentin 300 MG Capsule 900 MG PO ×3 (05:27→20:52)
[2022-04-06] MEDS: Insulin Glargine-YFGN 100 UNIT/ML Pen 35 UNIT SC ×2 (06:36→17:45)
[2022-04-06 06:45] LABS: Bedside Glucose 160 mg/dL (74-106)
[2022-04-06] MEDS: Insulin Lispro 100 UNIT/ML INSULN.PEN 23 UNIT SC ×3 (09:02→17:45)
[2022-04-06] MEDS: Cephalexin 500 MG Capsule PO ×2 (09:03→20:54)
[2022-04-06] MEDS: Doxycycline 100 MG CAPSULE PO ×2 (09:03→20:54)
[2022-04-06] MEDS: Carvedilol 6.25 MG Tablet PO ×2 (09:04→17:43)
[2022-04-06] MEDS: MethylPREDNISolone DosePak 4 MG BOX PO ×2 (09:04→20:54)
[2022-04-06] MEDS: Fenofibrate 145 MG Tablet PO (09:05)
[2022-04-06 11:09] VITALS: O2SAT 94
[2022-04-06 11:10] VITALS: PULSE 82; RESP 18; O2SAT 97
[2022-04-06 11:26] LABS: Bedside Glucose 231 mg/dL (74-106)
[2022-04-06] MEDS: Ferrous Sulfate 325 MG Tablet PO (12:05)
[2022-04-06] MEDS: Ascorbic Acid 500 MG Tablet PO (12:11)
[2022-04-06 13:05] LABS: Bedside Glucose 218 mg/dL (74-106)
[2022-04-06 15:31] VITALS: BP 94/50; PULSE 73; RESP 20; TEMP 36.1; O2SAT 99
[2022-04-06 16:56] LABS: Bedside Glucose 202 mg/dL (74-106)
[2022-04-06] MEDS: Albuterol 2.5 MG/3 ML VIAL.NEB. INHALATION (18:45)
[2022-04-06 18:46] VITALS: PULSE 88; RESP 18; O2SAT 97
--- NOTE | 2022-04-06 18:47 | CPS ---
pt has own bipap in room with 3 l/m o2 bleed
[2022-04-06] MEDS: Pramipexole Di-HCl 0.5 MG Tablet PO (20:53)
[2022-04-06] MEDS: Nortriptyline 25 MG Capsule PO (20:53)
[2022-04-06] MEDS: Atorvastatin Calcium 80 MG Tablet PO (20:54)
--- NOTE | 2022-04-06 21:20 | NURSING ---
Paged Dr. Wisdom w/ immediate return phone call. Requested an order for PRN Tylenol. New order received and read back for Tylenol 1000 mg po every 6 hours PRN. Pt updated.
[2022-04-06 21:56] LABS: Bedside Glucose 250 mg/dL (74-106)
[2022-04-06] MEDS: Acetaminophen 500 MG Tablet 1000 MG PO (23:38)
[2022-04-07] MEDS: FLUoxetine 10 MG Capsule 40 MG PO (05:30)
[2022-04-07] MEDS: Gabapentin 300 MG Capsule 900 MG PO ×3 (05:31→19:57)
[2022-04-07] MEDS: APIXABAN 5 MG TABLET 10 MG PO ×2 (05:32→17:19)
[2022-04-07] MEDS: busPIRone 5 MG Tablet PO ×2 (05:32→17:19)
[2022-04-07] MEDS: Pantoprazole Sodium 40 MG Tablet PO (05:33)
[2022-04-07] MEDS: Colestipol 1 GM TABLET PO ×2 (05:33→17:19)
[2022-04-07] MEDS: Empagliflozin 10 MG Tablet PO (05:33)
[2022-04-07] MEDS: Isosorbide Mononitrate 60 MG Tablet PO (05:35)
[2022-04-07 05:43] VITALS: BP 99/52; PULSE 60
--- NOTE | 2022-04-07 05:43 | NURSING ---
Lasix, Spironolactone, and Lisinopril held at this time d/t low BP. Will report to oncoming nurse.
[2022-04-07 06:51] LABS: Bedside Glucose 208 mg/dL (74-106)
[2022-04-07] MEDS: Fenofibrate 145 MG Tablet PO (07:45)
[2022-04-07] MEDS: Furosemide 80 MG Tablet PO ×2 (07:45→14:17)
[2022-04-07] MEDS: Cephalexin 500 MG Capsule PO ×2 (07:45→19:58)
[2022-04-07] MEDS: Doxycycline 100 MG CAPSULE PO ×2 (07:45→19:57)
[2022-04-07] MEDS: Carvedilol 6.25 MG Tablet PO ×2 (07:46→17:19)
[2022-04-07] MEDS: Spironolactone 25 MG Tablet PO (07:47)
[2022-04-07] MEDS: Lisinopril 20 MG Tablet PO (07:47)
[2022-04-07] MEDS: Insulin Glargine-YFGN 100 UNIT/ML Pen 35 UNIT SC ×2 (07:48→17:19)
[2022-04-07] MEDS: Insulin Lispro 100 UNIT/ML INSULN.PEN 23 UNIT SC ×3 (07:49→17:19)
[2022-04-07] MEDS: Petrolatum 33% Tube 1 APPLIC TOPICAL (07:50)
[2022-04-07] MEDS: Latanoprost 0.005% 1 Bottle 1 DRP EACH EYE ×3 (07:50→19:59)
[2022-04-07 07:51] VITALS: BP 113/66; PULSE 69
[2022-04-07 11:35] LABS: Bedside Glucose 244 mg/dL (74-106)
[2022-04-07] MEDS: Ascorbic Acid 500 MG Tablet PO (12:04)
[2022-04-07] MEDS: Ferrous Sulfate 325 MG Tablet PO (12:04)
[2022-04-07 15:51] VITALS: BP 107/54; PULSE 71; RESP 17; TEMP 36.3; O2SAT 98
--- NOTE | 2022-04-07 16:02 | NURSING ---
Notified pt of staff member testing positive for covid.
[2022-04-07 17:10] LABS: Bedside Glucose 122 mg/dL (74-106)
[2022-04-07] MEDS: Pramipexole Di-HCl 0.5 MG Tablet PO (19:58)
[2022-04-07] MEDS: Atorvastatin Calcium 80 MG Tablet PO (19:58)
[2022-04-07] MEDS: Nortriptyline 25 MG Capsule PO (19:59)
[2022-04-07 20:00] VITALS: PULSE 70; RESP 18; O2SAT 97
[2022-04-07 22:01] LABS: Bedside Glucose 157 mg/dL (74-106)
[2022-04-08 06:40] VITALS: BP 133/82; PULSE 77
[2022-04-08 06:51] LABS: Bedside Glucose 171 mg/dL (74-106)
[2022-04-08] MEDS: Isosorbide Mononitrate 60 MG Tablet PO (06:58)
[2022-04-08] MEDS: Spironolactone 25 MG Tablet PO (06:58)
[2022-04-08] MEDS: busPIRone 5 MG Tablet PO ×2 (06:58→17:51)
[2022-04-08] MEDS: Colestipol 1 GM TABLET PO ×2 (06:58→17:51)
[2022-04-08] MEDS: Empagliflozin 10 MG Tablet PO (06:58)
[2022-04-08] MEDS: APIXABAN 5 MG TABLET 10 MG PO ×2 (06:58→17:51)
[2022-04-08] MEDS: Lisinopril 20 MG Tablet PO (06:59)
[2022-04-08] MEDS: Pantoprazole Sodium 40 MG Tablet PO (06:59)
[2022-04-08] MEDS: Furosemide 80 MG Tablet PO (06:59)
[2022-04-08] MEDS: FLUoxetine 10 MG Capsule 40 MG PO (06:59)
[2022-04-08] MEDS: Latanoprost 0.005% 1 Bottle 1 DRP EACH EYE ×3 (07:00→22:02)
[2022-04-08] MEDS: Insulin Glargine-YFGN 100 UNIT/ML Pen 35 UNIT SC ×2 (07:00→17:51)
[2022-04-08] MEDS: Petrolatum 33% Tube 1 APPLIC TOPICAL (07:11)
[2022-04-08] MEDS: Gabapentin 300 MG Capsule 900 MG PO ×3 (07:13→22:01)
[2022-04-08] MEDS: Insulin Lispro 100 UNIT/ML INSULN.PEN 23 UNIT SC ×2 (08:06→11:48)
[2022-04-08] MEDS: Fenofibrate 145 MG Tablet PO (08:07)
[2022-04-08] MEDS: Cephalexin 500 MG Capsule PO ×2 (08:08→20:03)
[2022-04-08] MEDS: Doxycycline 100 MG CAPSULE PO ×2 (08:08→20:03)
--- NOTE | 2022-04-08 09:30 | NURSING ---
Addendum entered by Gris Holt 04/08/22 13:21: BP rechecked after bolus was completed. BP 97/57 Pulse 65 No longer complaining of Dizziness. Dr. Wisdom decreased Lasix to 40mg. Original Note: Pt C/O of Dizziness. Checked BP 66/[address] Wisdom paged and updated. N.O. for Bolus of NS 500ml and recheck BP.
[2022-04-08 10:00] VITALS: PULSE 69
[2022-04-08] MEDS: 0.9% Saline Lock 10 ML Syringe IV (10:22)
[2022-04-08 11:21] VITALS: BP 97/57; PULSE 65
[2022-04-08 11:31] LABS: Bedside Glucose 240 mg/dL (74-106)
[2022-04-08] MEDS: Ascorbic Acid 500 MG Tablet PO (11:46)
[2022-04-08] MEDS: Ferrous Sulfate 325 MG Tablet PO (11:46)
[2022-04-08 17:40] LABS: Bedside Glucose 109 mg/dL (74-106)
[2022-04-08] MEDS: Carvedilol 6.25 MG Tablet PO (17:51)
[2022-04-08 17:58] VITALS: BP 117/63; PULSE 79
--- NOTE | 2022-04-08 19:25 | NURSING ---
Dr. Wisdom updated on BS of [address] Wisdom hold Humalog and give Glargine.
--- NOTE | 2022-04-08 20:06 | NURSING ---
IV bolus done by day nurse and marked off MAR at this time due to not done earlier.
[2022-04-08 22:01] LABS: Bedside Glucose 282 mg/dL (74-106)
[2022-04-08] MEDS: Pramipexole Di-HCl 0.5 MG Tablet PO (22:01)
[2022-04-08] MEDS: Nortriptyline 25 MG Capsule PO (22:01)
[2022-04-08] MEDS: Atorvastatin Calcium 80 MG Tablet PO (22:02)
--- NOTE | 2022-04-08 23:04 | NURSING ---
Very pleasant, will let staff know of needs. x1 assist, walker for transfers.
[2022-04-09] MEDS: Latanoprost 0.005% 1 Bottle 1 DRP EACH EYE ×3 (05:46→20:54)
[2022-04-09] MEDS: Gabapentin 300 MG Capsule 900 MG PO (05:47)
[2022-04-09] MEDS: FLUoxetine 10 MG Capsule 40 MG PO (05:48)
[2022-04-09] MEDS: APIXABAN 5 MG TABLET 10 MG PO (05:49)
[2022-04-09] MEDS: busPIRone 5 MG Tablet PO ×2 (05:49→17:47)
[2022-04-09] MEDS: Pantoprazole Sodium 40 MG Tablet PO (05:50)
[2022-04-09] MEDS: Colestipol 1 GM TABLET PO (05:51)
[2022-04-09] MEDS: Empagliflozin 10 MG Tablet PO (05:51)
[2022-04-09 06:36] LABS: Bedside Glucose 196 mg/dL (74-106)
[2022-04-09] MEDS: Insulin Glargine-YFGN 100 UNIT/ML Pen 35 UNIT SC ×2 (07:50→17:47)
[2022-04-09] MEDS: Doxycycline 100 MG CAPSULE PO ×2 (07:51→20:53)
[2022-04-09] MEDS: Fenofibrate 145 MG Tablet PO (07:51)
[2022-04-09] MEDS: Isosorbide Mononitrate 60 MG Tablet PO (07:51)
[2022-04-09] MEDS: Insulin Lispro 100 UNIT/ML INSULN.PEN 23 UNIT SC ×3 (07:51→17:48)
[2022-04-09] MEDS: Cephalexin 500 MG Capsule PO ×2 (07:51→20:53)
[2022-04-09] MEDS: Carvedilol 6.25 MG Tablet PO (07:52)
[2022-04-09 07:56] VITALS: BP 110/60; PULSE 70
--- NOTE | 2022-04-09 10:00 | NURSING ---
Addendum entered by Gris Holt 04/09/22 15:21: Dr. Wisdom called this Nurse. Dr. Wisdom updated that pt is having increased wheezing and difficulty breathing. New order for Chest X-ray. BP rechecked and 105/55 pt no longer c/o of dizziness. Addendum entered by Gris Holt 04/09/22 15:16: IV to Left hand leaked during Bolus of Normal Saline. Dr. Wisdom updated on labs and Blood pressure 78/44 Pulse 65. N.O. for NS Bolus 1000ml and recheck Blood pressure. Original Note: Pt c/o of Dizziness Blood Pressure 71/[address] Wisdom updated N.O. NS 500ml Bolus and recheck BP after infused.
[2022-04-09 10:13] LABS: Absolute Lymphocyte Count 0.71 X10^3/uL (0.83-4.51); Absolute Neutrophil Count 5.2 X10^3/uL (2.0-7.7); Basophil# 0.06 X10^3/uL; Basophil% 0.9 % (0-1); Eosinophil# 0.24 X10^3/uL; Eosinophils% 3.6 % (0-5); Hematocrit 33.7 % (40-54); Lymphocyte # 0.71 X10^3/ul (0.83-4.51); Lymphocyte % 10.5 % (19-41); Mean Corp Hgb Conc 29.7 g/dL (32-36); Mean Corpuscular Hgb 23.5 pg (27.0-32.0); Mean Corpuscular Volume 79.3 fL (80-94); Mean Platelet Vol. 9.8 fl (6.2-12.0); Monocyte# 0.52 X10^3/uL; Monocyte% 7.7 % (0-10); NRBC Flagged by Analyzer 0 % (0-5); Neutrophil # 5.16 X10^3/uL (2.7-7.7); Neutrophil % 76.7 % (47-70); POSITIVE MORPHOLOGY YES; Platelet Count 166 K/mm3 (150-450); RBC Distribution Width CV 25.4 % (11.6-14.6); Red Blood Count 4.25 M/mm3 (4.6-6.2); White Blood Count 6.7 K/mm3 (4.4-11.0)
[2022-04-09 10:17] LABS: Differential Indicated SCAN CRITERIA MET
[2022-04-09 10:24] LABS: Anion Gap 7 (5-15); BUN 71 mg/dL (7-18); BUN/Creat Ratio 28.9 RATIO (10-20); Calcium,Total 8.2 mg/dL (8.5-10.1); Chloride 101 mmol/L (98-107); Creatinine, Serum 2.46 mg/dL (0.70-1.30); EST Glomerular Filtration Rate 27 mL/min (>60); Est Glom Filt Rate - Afr Amer 33 mL/min (>60); Estimated Creatinine Clearance 24.72 ml/min; Glucose 233 mg/dL (74-106); Potassium 4.3 mmol/L (3.5-5.1); Sodium Level 132 mmol/L (136-145)
[2022-04-09 10:47] LABS: Anisocytosis RARE
[2022-04-09] MEDS: 0.9% Normal Saline 1,000 ML 999 ML IV (11:20)
[2022-04-09 12:01] LABS: Bedside Glucose 201 mg/dL (74-106)
[2022-04-09] MEDS: Ascorbic Acid 500 MG Tablet PO (12:25)
[2022-04-09] MEDS: Ferrous Sulfate 325 MG Tablet PO (12:25)
[2022-04-09 12:29] VITALS: BP 105/59; PULSE 66
--- NOTE | 2022-04-09 12:35 | RAD_ITS ---
STUDY: X-RAY CHEST REASON FOR EXAM: Male, 76 years old. SOB TECHNIQUE: PA and lateral views of the chest. COMPARISON: Comparison is made with prior study dated 03/17/2022. FINDINGS: Stable mild elevation of the right hemidiaphragm. There is no demonstrated pleural abnormality. Normal size heart. A left-sided unipolar pacemaker is seen. Normal mediastinum and eleuterio. Normal visualized pulmonary arteries. Normal visualized aortic arch and descending thoracic aorta. There are diffuse degenerative changes of the visualized thoracic spine. Degenerative changes of the acromioclavicular joints bilaterally. There is no demonstrated abnormality of the visualized soft tissue structures of the upper abdomen. RAD/Chest PA and Lateral IMPRESSION: No acute abnormality is seen. Electronically Signed: Cosmo Malone MD at 13:04 EST ,
[2022-04-09] MEDS: Petrolatum 33% Tube 1 APPLIC TOPICAL (13:43)
[2022-04-09] MEDS: Gabapentin 600 MG Tablet PO ×2 (13:43→20:52)
[2022-04-09 16:00] VITALS: BP 125/68; PULSE 74; RESP 17; TEMP 36.2; O2SAT 98
[2022-04-09 16:40] LABS: Bedside Glucose 115 mg/dL (74-106)
[2022-04-09] MEDS: Carvedilol 3.125 MG TABLET PO (17:47)
[2022-04-09 17:52] VITALS: BP 123/59; PULSE 71
[2022-04-09] MEDS: Atorvastatin Calcium 80 MG Tablet PO (20:53)
[2022-04-09] MEDS: Nortriptyline 25 MG Capsule PO (20:53)
[2022-04-09] MEDS: Pramipexole Di-HCl 0.5 MG Tablet PO (20:53)
[2022-04-09 21:19] VITALS: RESP 20; O2SAT 97
[2022-04-09 22:40] VITALS: BP 151/88
[2022-04-09 22:45] LABS: Bedside Glucose 172 mg/dL (74-106)
[2022-04-10 05:26] LABS: Absolute Lymphocyte Count 0.64 X10^3/uL (0.83-4.51); Absolute Neutrophil Count 3.4 X10^3/uL (2.0-7.7); Basophil# 0.04 X10^3/uL; Basophil% 0.8 % (0-1); Eosinophil# 0.22 X10^3/uL; Eosinophils% 4.6 % (0-5); Hematocrit 32.3 % (40-54); Hemoglobin 9.8 g/dL (13.0-16.5); Lymphocyte # 0.64 X10^3/ul (0.83-4.51); Lymphocyte % 13.4 % (19-41); Mean Corp Hgb Conc 30.3 g/dL (32-36); Mean Corpuscular Hgb 24.5 pg (27.0-32.0); Mean Corpuscular Volume 80.8 fL (80-94); Mean Platelet Vol. 9.5 fl (6.2-12.0); Monocyte# 0.41 X10^3/uL; Monocyte% 8.6 % (0-10); NRBC Flagged by Analyzer 0 % (0-5); Neutrophil # 3.42 X10^3/uL (2.7-7.7); POSITIVE MORPHOLOGY YES; Platelet Count 112 K/mm3 (150-450); RBC Distribution Width CV 25.4 % (11.6-14.6); RBC Distribution Width SD 71.8 fl (35.1-43.9); White Blood Count 4.8 K/mm3 (4.4-11.0)
[2022-04-10 05:38] LABS: BNP,B-Type NATRIURETIC PEPTIDE 58.3 pg/mL (0-100)
[2022-04-10 05:42] LABS: Anion Gap 7 (5-15); BUN 56 mg/dL (7-18); BUN/Creat Ratio 34.4 RATIO (10-20); Chloride 106 mmol/L (98-107); Creatinine, Serum 1.63 mg/dL (0.70-1.30); EST Glomerular Filtration Rate 44 mL/min (>60); Est Glom Filt Rate - Afr Amer 53 mL/min (>60); Glucose 102 mg/dL (74-106); Potassium 4.2 mmol/L (3.5-5.1); Sodium Level 139 mmol/L (136-145)
[2022-04-10 05:43] LABS: Differential Indicated SCAN CRITERIA MET
[2022-04-10 06:06] LABS: Anisocytosis 3+; Platelet Estimate SLT DEC (ADEQ)
[2022-04-10 06:07] LABS: Macrocytosis 1+; Microcytosis 1+
[2022-04-10 06:20] VITALS: BP 82/44; PULSE 71
[2022-04-10] MEDS: Gabapentin 600 MG Tablet PO ×3 (06:21→20:01)
[2022-04-10] MEDS: Pantoprazole Sodium 40 MG Tablet PO (06:21)
[2022-04-10] MEDS: FLUoxetine 10 MG Capsule 40 MG PO (06:21)
[2022-04-10] MEDS: Empagliflozin 10 MG Tablet PO (06:22)
[2022-04-10] MEDS: busPIRone 5 MG Tablet PO ×2 (06:22→16:45)
[2022-04-10] MEDS: Isosorbide Mononitrate 30 MG Tablet PO (06:26)
[2022-04-10] MEDS: Petrolatum 33% Tube 1 APPLIC TOPICAL (06:27)
[2022-04-10] MEDS: Latanoprost 0.005% 1 Bottle 1 DRP EACH EYE ×3 (06:28→20:01)
[2022-04-10 06:30] VITALS: BP 103/68; PULSE 70
[2022-04-10 06:30] LABS: Bedside Glucose 101 mg/dL (74-106)
[2022-04-10] MEDS: Insulin Glargine-YFGN 100 UNIT/ML Pen 35 UNIT SC (06:30)
[2022-04-10 06:35] VITALS: BP 98/50; PULSE 70
[2022-04-10 07:38] VITALS: O2SAT 99
[2022-04-10] MEDS: Carvedilol 3.125 MG TABLET PO ×2 (07:45→16:44)
[2022-04-10] MEDS: Doxycycline 100 MG CAPSULE PO ×2 (07:45→20:01)
[2022-04-10] MEDS: Cephalexin 500 MG Capsule PO ×2 (07:46→20:01)
[2022-04-10] MEDS: Insulin Lispro 100 UNIT/ML INSULN.PEN 23 UNIT SC (07:46)
[2022-04-10 07:51] VITALS: BP 117/67; PULSE 75
[2022-04-10 11:30] LABS: Bedside Glucose 145 mg/dL (74-106)
[2022-04-10] MEDS: Ferrous Sulfate 325 MG Tablet PO (11:59)
[2022-04-10] MEDS: Insulin Lispro 100 UNIT/ML INSULN.PEN 18 UNIT SC ×2 (11:59→18:05)
[2022-04-10] MEDS: Ascorbic Acid 500 MG Tablet PO (11:59)
--- NOTE | 2022-04-10 12:26 | PT ---
Pt was on 2L of O2 and SPO2 was 99% with all activity and at rest. Pt was then placed on room air for ambulation and at rest. Pt's SPO2 was between 96-99% while on room air with activity and at rest.
[2022-04-10 14:59] VITALS: BP 125/69; PULSE 86; RESP 18; TEMP 36.3; O2SAT 97
[2022-04-10 17:26] LABS: Bedside Glucose 126 mg/dL (74-106)
[2022-04-10] MEDS: Insulin Glargine-YFGN 100 UNIT/ML Pen 28 UNIT SC (18:06)
[2022-04-10] MEDS: Nortriptyline 25 MG Capsule PO (20:01)
[2022-04-10] MEDS: Atorvastatin Calcium 80 MG Tablet PO (20:01)
[2022-04-10] MEDS: Pramipexole Di-HCl 0.5 MG Tablet PO (20:01)
[2022-04-10 21:55] LABS: Bedside Glucose 188 mg/dL (74-106)
[2022-04-11] MEDS: Latanoprost 0.005% 1 Bottle 1 DRP EACH EYE ×3 (06:20→20:12)
[2022-04-11] MEDS: Gabapentin 600 MG Tablet PO ×3 (06:20→20:13)
[2022-04-11] MEDS: Pantoprazole Sodium 40 MG Tablet PO (06:21)
[2022-04-11] MEDS: Isosorbide Mononitrate 30 MG Tablet PO (06:21)
[2022-04-11] MEDS: busPIRone 5 MG Tablet PO ×2 (06:21→17:40)
[2022-04-11] MEDS: FLUoxetine 10 MG Capsule 40 MG PO (06:21)
[2022-04-11] MEDS: Empagliflozin 10 MG Tablet PO (06:21)
[2022-04-11] MEDS: Insulin Glargine-YFGN 100 UNIT/ML Pen 28 UNIT SC ×2 (06:22→17:40)
[2022-04-11] MEDS: Petrolatum 33% Tube 1 APPLIC TOPICAL (06:27)
[2022-04-11 06:35] LABS: Bedside Glucose 126 mg/dL (74-106)
[2022-04-11] MEDS: Carvedilol 3.125 MG TABLET PO ×2 (07:47→17:37)
[2022-04-11] MEDS: Insulin Lispro 100 UNIT/ML INSULN.PEN 18 UNIT SC ×3 (07:48→17:39)
[2022-04-11 08:04] VITALS: BP 133/71; PULSE 74; RESP 18; O2SAT 99
[2022-04-11 10:55] VITALS: PULSE 78; RESP 18
[2022-04-11 11:30] LABS: Bedside Glucose 211 mg/dL (74-106)
[2022-04-11] MEDS: Ferrous Sulfate 325 MG Tablet PO (11:55)
[2022-04-11] MEDS: Ascorbic Acid 500 MG Tablet PO (11:56)
[2022-04-11 14:19] VITALS: BP 125/69; PULSE 75; RESP 18; TEMP 36.2; O2SAT 95
[2022-04-11 15:50] VITALS: RESP 16; O2SAT 96
[2022-04-11 16:40] LABS: Bedside Glucose 161 mg/dL (74-106)
[2022-04-11] MEDS: Pramipexole Di-HCl 0.5 MG Tablet PO (20:13)
[2022-04-11] MEDS: Nortriptyline 25 MG Capsule PO (20:13)
[2022-04-11] MEDS: Atorvastatin Calcium 80 MG Tablet PO (20:13)
[2022-04-11 21:55] LABS: Bedside Glucose 109 mg/dL (74-106)
[2022-04-12] MEDS: Pantoprazole Sodium 40 MG Tablet PO (06:22)
[2022-04-12] MEDS: Fluoxetine HCl 40 MG CAPSULE PO (06:22)
[2022-04-12] MEDS: busPIRone 5 MG Tablet PO ×2 (06:22→17:42)
[2022-04-12 06:25] VITALS: BP 120/67; PULSE 73; RESP 18; O2SAT 97
[2022-04-12] MEDS: Empagliflozin 10 MG Tablet PO (06:29)
[2022-04-12] MEDS: Latanoprost 0.005% 1 Bottle 1 DRP EACH EYE ×3 (06:29→21:10)
[2022-04-12] MEDS: Gabapentin 600 MG Tablet PO ×3 (06:29→21:11)
[2022-04-12] MEDS: Isosorbide Mononitrate 30 MG Tablet PO (06:29)
[2022-04-12] MEDS: Insulin Glargine-YFGN 100 UNIT/ML Pen 28 UNIT SC ×2 (06:31→17:43)
[2022-04-12] MEDS: Petrolatum 33% Tube 1 APPLIC TOPICAL (06:34)
[2022-04-12 07:25] LABS: Bedside Glucose 89 mg/dL (74-106)
[2022-04-12] MEDS: Carvedilol 3.125 MG TABLET PO ×2 (08:05→17:42)
[2022-04-12 08:41] LABS: Absolute Lymphocyte Count 0.69 X10^3/uL (0.83-4.51); Absolute Neutrophil Count 3.4 X10^3/uL (2.0-7.7); Basophil# 0.04 X10^3/uL; Basophil% 0.8 % (0-1); Eosinophils% 4.2 % (0-5); Hemoglobin 10.1 g/dL (13.0-16.5); Lymphocyte # 0.69 X10^3/ul (0.83-4.51); Lymphocyte % 14.5 % (19-41); Mean Corp Hgb Conc 28.9 g/dL (32-36); Mean Corpuscular Hgb 23.8 pg (27.0-32.0); Mean Corpuscular Volume 82.4 fL (80-94); Mean Platelet Vol. 9.9 fl (6.2-12.0); Monocyte# 0.42 X10^3/uL; Monocyte% 8.8 % (0-10); NRBC Flagged by Analyzer 0 % (0-5); Neutrophil # 3.39 X10^3/uL (2.7-7.7); Neutrophil % 71.1 % (47-70); POSITIVE MORPHOLOGY YES; Platelet Count 142 K/mm3 (150-450); RBC Distribution Width CV 26.1 % (11.6-14.6); RBC Distribution Width SD 74.9 fl (35.1-43.9); Red Blood Count 4.25 M/mm3 (4.6-6.2); White Blood Count 4.8 K/mm3 (4.4-11.0)
[2022-04-12 08:46] LABS: Differential Indicated SCAN CRITERIA MET
[2022-04-12 09:08] LABS: Anion Gap 6 (5-15); BUN 32 mg/dL (7-18); BUN/Creat Ratio 21.8 RATIO (10-20); Calcium,Total 8.6 mg/dL (8.5-10.1); Chloride 108 mmol/L (98-107); Creatinine, Serum 1.47 mg/dL (0.70-1.30); EST Glomerular Filtration Rate 49 mL/min (>60); Est Glom Filt Rate - Afr Amer 60 mL/min (>60); Estimated Creatinine Clearance 41.36 ml/min; Glucose 130 mg/dL (74-106); Potassium 4.3 mmol/L (3.5-5.1); Sodium Level 141 mmol/L (136-145)
[2022-04-12 09:33] LABS: Anisocytosis 2+; Platelet Estimate ADEQUATE (ADEQ); Polychromasia 1+
[2022-04-12] MEDS: Ferrous Sulfate 325 MG Tablet PO (11:50)
[2022-04-12] MEDS: Ascorbic Acid 500 MG Tablet PO (11:50)
[2022-04-12] MEDS: Furosemide 80 MG Tablet PO (11:51)
[2022-04-12] MEDS: Insulin Lispro 100 UNIT/ML INSULN.PEN 18 UNIT SC ×2 (11:51→17:43)
[2022-04-12 11:55] VITALS: BP 129/75; PULSE 81
[2022-04-12 12:05] LABS: Bedside Glucose 208 mg/dL (74-106)
[2022-04-12 15:55] VITALS: BP 143/76; PULSE 85; RESP 18; TEMP 36.4; O2SAT 99
[2022-04-12 18:00] LABS: Bedside Glucose 176 mg/dL (74-106)
[2022-04-12 20:45] VITALS: O2SAT 96
[2022-04-12] MEDS: Atorvastatin Calcium 80 MG Tablet PO (21:11)
[2022-04-12] MEDS: Nortriptyline 25 MG Capsule PO (21:12)
[2022-04-12] MEDS: Pramipexole Di-HCl 0.5 MG Tablet PO (21:12)
[2022-04-12] MEDS: Albuterol 2.5 MG/3 ML VIAL.NEB. INHALATION (21:36)
[2022-04-12 21:45] VITALS: PULSE 84; RESP 18
[2022-04-12 21:45] LABS: Bedside Glucose 166 mg/dL (74-106)
[2022-04-13] MEDS: Fluoxetine HCl 40 MG CAPSULE PO (04:53)
[2022-04-13] MEDS: Empagliflozin 10 MG Tablet PO (04:54)
[2022-04-13] MEDS: Pantoprazole Sodium 40 MG Tablet PO (04:54)
[2022-04-13] MEDS: Latanoprost 0.005% 1 Bottle 1 DRP EACH EYE ×3 (04:54→21:43)
[2022-04-13] MEDS: Gabapentin 600 MG Tablet PO ×3 (04:54→21:42)
[2022-04-13] MEDS: busPIRone 5 MG Tablet PO ×2 (04:54→17:57)
[2022-04-13] MEDS: Isosorbide Mononitrate 30 MG Tablet PO (04:54)
[2022-04-13] MEDS: Petrolatum 33% Tube 1 APPLIC TOPICAL (04:55)
[2022-04-13] MEDS: Furosemide 80 MG Tablet PO (05:03)
[2022-04-13 05:17] VITALS: PULSE 85; RESP 18
[2022-04-13] MEDS: Albuterol 2.5 MG/3 ML VIAL.NEB. INHALATION (05:17)
[2022-04-13 06:50] LABS: Bedside Glucose 144 mg/dL (74-106)
[2022-04-13] MEDS: Insulin Glargine-YFGN 100 UNIT/ML Pen 28 UNIT SC ×2 (08:13→17:59)
[2022-04-13] MEDS: Insulin Lispro 100 UNIT/ML INSULN.PEN 18 UNIT SC ×3 (08:13→17:59)
[2022-04-13] MEDS: Carvedilol 3.125 MG TABLET PO ×2 (08:13→17:57)
[2022-04-13 08:46] LABS: Anion Gap 9 (5-15); BUN 32 mg/dL (7-18); BUN/Creat Ratio 19.4 RATIO (10-20); Calcium,Total 8.3 mg/dL (8.5-10.1); Chloride 104 mmol/L (98-107); Creatinine, Serum 1.65 mg/dL (0.70-1.30); EST Glomerular Filtration Rate 43 mL/min (>60); Est Glom Filt Rate - Afr Amer 52 mL/min (>60); Estimated Creatinine Clearance 36.85 ml/min; Glucose 151 mg/dL (74-106); Potassium 3.8 mmol/L (3.5-5.1); Sodium Level 139 mmol/L (136-145)
[2022-04-13 11:50] LABS: Bedside Glucose 216 mg/dL (74-106)
[2022-04-13] MEDS: Ferrous Sulfate 325 MG Tablet PO (11:56)
[2022-04-13] MEDS: Ascorbic Acid 500 MG Tablet PO (11:56)
[2022-04-13 14:50] VITALS: BP 120/69; PULSE 87; RESP 18; TEMP 36.2; O2SAT 100
[2022-04-13 17:10] LABS: Bedside Glucose 187 mg/dL (74-106)
[2022-04-13] MEDS: Pramipexole Di-HCl 0.5 MG Tablet PO (21:43)
[2022-04-13] MEDS: Atorvastatin Calcium 80 MG Tablet PO (21:43)
[2022-04-13] MEDS: Nortriptyline 25 MG Capsule PO (21:43)
[2022-04-13 21:46] LABS: Bedside Glucose 262 mg/dL (74-106)
[2022-04-14] MEDS: Furosemide 80 MG Tablet PO (05:46)
[2022-04-14] MEDS: Fluoxetine HCl 40 MG CAPSULE PO (05:46)
[2022-04-14] MEDS: Gabapentin 600 MG Tablet PO ×3 (05:46→20:39)
[2022-04-14] MEDS: busPIRone 5 MG Tablet PO ×2 (05:46→17:37)
[2022-04-14] MEDS: Empagliflozin 10 MG Tablet PO (05:46)
[2022-04-14] MEDS: Isosorbide Mononitrate 30 MG Tablet PO (05:47)
[2022-04-14] MEDS: Pantoprazole Sodium 40 MG Tablet PO (05:47)
[2022-04-14] MEDS: Petrolatum 33% Tube 1 APPLIC TOPICAL (05:49)
[2022-04-14] MEDS: Latanoprost 0.005% 1 Bottle 1 DRP EACH EYE ×3 (06:24→20:39)
[2022-04-14 06:29] LABS: Anion Gap 9 (5-15); BUN 33 mg/dL (7-18); BUN/Creat Ratio 20.9 RATIO (10-20); Chloride 106 mmol/L (98-107); Creatinine, Serum 1.58 mg/dL (0.70-1.30); EST Glomerular Filtration Rate 46 mL/min (>60); Est Glom Filt Rate - Afr Amer 55 mL/min (>60); Estimated Creatinine Clearance 38.48 ml/min; Glucose 162 mg/dL (74-106); Potassium 3.8 mmol/L (3.5-5.1); Sodium Level 141 mmol/L (136-145)
[2022-04-14 06:35] LABS: Bedside Glucose 161 mg/dL (74-106)
[2022-04-14] MEDS: Insulin Glargine-YFGN 100 UNIT/ML Pen 28 UNIT SC ×2 (06:39→17:36)
[2022-04-14] MEDS: Albuterol 2.5 MG/3 ML VIAL.NEB. INHALATION (07:44)
[2022-04-14 08:04] VITALS: PULSE 80; RESP 18; O2SAT 98
[2022-04-14] MEDS: Insulin Lispro 100 UNIT/ML INSULN.PEN 18 UNIT SC ×3 (08:10→17:36)
[2022-04-14 08:12] VITALS: BP 101/66; RESP 95
[2022-04-14] MEDS: Carvedilol 3.125 MG TABLET PO ×2 (09:08→17:36)
[2022-04-14 10:50] VITALS: O2SAT 97
[2022-04-14 11:36] LABS: Bedside Glucose 236 mg/dL (74-106)
[2022-04-14] MEDS: Ascorbic Acid 500 MG Tablet PO (12:07)
[2022-04-14] MEDS: Ferrous Sulfate 325 MG Tablet PO (12:07)
--- NOTE | 2022-04-14 13:06 | CASEMGMT ---
Social Work Spoke with pt about DC plans. Pt is off of O2 and states he is ready to go home. Pt requesting HHC and used [facility] prior. No DME needs. Pt has appt 04/18 and would like to DC prior. IDT agreeable. SW phoned referral to [facility] for PT/OT/SN. Plan: DC home with with 04/18, [facility] PT/OT/SN. Nesha Andres, ALINING INSPECTOR CHUTE MAN
[2022-04-14] MEDS: Ondansetron ODT 4 MG Tablet PO (14:40)
[2022-04-14 15:02] VITALS: BP 122/66; PULSE 84; RESP 16; TEMP 36.2; O2SAT 96
[2022-04-14 17:55] LABS: Bedside Glucose 176 mg/dL (74-106)
--- NOTE | 2022-04-14 18:35 | DS.PCM_ITS ---
Providers Date of Admission: 03/21/22 Primary Care Physician: Dr. 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 Routine Comment: Reason for Consult:: bilateral lower legs Reason For Visit: CHF Diagnosis Discharge Diagnosis (1) Debility: Status: Acute Code(s): R53.81 - Other malaise (2) Uncontrolled type 2 diabetes mellitus: Status: Acute (3) Morbid obesity with BMI of 40.0-44.9, adult: Status: Acute Code(s): E66.01 - Morbid (severe) obesity due to excess calories; Z68.41 - Body mass index [BMI] 40.0-44.9, adult (4) CAD (coronary artery disease): Status: Chronic Code(s): I25.10 - Atherosclerotic heart disease of [place] coronary artery without angina pectoris (5) JESSICA (obstructive sleep apnea): Status: Acute Code(s): G47.33 - Obstructive sleep apnea (adult) (pediatric) (6) Anxiety: Status: Acute Code(s): F41.9 - Anxiety disorder, unspecified Medications at Discharge Home Medications latanoprost 0.005 % eye drops 1 drp EACH EYE TID glaucoma 11/17/18 nitroglycerin 0.4 mg sublingual tablet 0.4 mg sublingual Q5M PRN Chest Pain #25 tabs 10/08/20 nortriptyline 25 mg capsule 25 mg PO QHS depression 04/21/21 rosuvastatin 40 mg tablet 40 mg PO QHS Cholesterol #90 tabs 07/08/21 warfarin 3 mg tablet 3 mg PO QMWF blood thinner 09/11/21 warfarin 6 mg tablet 6 mg PO SUTUTHSA blood thinner 09/11/21 ropinirole 0.5 mg tablet 1 mg PO QHS legs 12/10/21 dapagliflozin 10 mg tablet (Farxiga) 5 mg PO DAILY ordered by PCP 12/23/21 ondansetron 4 mg disintegrating tablet 4 mg PO Q6H PRN Nausea 03/16/22 albuterol sulfate 2.5 mg/3 mL (0.083 %) solution for nebulization 2.5 mg (3 mL) inhalation Q4H.RT PRN WHEEZING 30 days #360 mL 04/14/22 carvedilol 3.125 mg tablet 3.125 mg PO BIDCM 30 days #60 tabs 04/14/22 fluoxetine 40 mg capsule 40 mg PO DAILY 30 days #30 caps 04/14/22 furosemide 80 mg tablet 80 mg PO DAILY 30 days #30 tabs 04/14/22 gabapentin 600 mg tablet 600 mg PO TID 30 days #90 tabs 04/14/22 insulin glargine-yfgn 100 unit/mL (3 mL) subcutaneous pen 28 unit (0.28 mL) subcut BID 30 days #18 mL 04/14/22 insulin lispro 100 unit/mL subcutaneous pen (Humalog KwikPen (U-100) Insulin) 18 unit (0.18 mL) subcut 0800,1200,1700 30 days #18 mL 04/14/22 isosorbide mononitrate 30 mg tablet,extended release 24 hr 30 mg PO DAILY 30 days #30 tabs 04/14/22 Hospital Course Operations None Procedures None Summary of Care Provided Minutes Spent on Discharge: 35 Hospital Course: 76 year old male with below past medical history hospitalized for acute on chronic diastolic congestive heart failure, complicated by COPD exacerbation, admitted to TCU with debility, here for rehabilitation, strengthening, prior to discharge home with . Discharge home with 04/18/2022, [facility] PT/OT/SN. Physical Exam Const alert General Appearance: cooperative HEENT normocephalic Eyes PERRL and EOMs intact bilaterally Neck supple, no JVD and no carotid bruits Resp normal respiratory effort, normal air movement and clear to auscultation bilaterally Cardio regular rate and regular rhythm GI normal to inspection, nondistended, normoactive bowel sounds, non-tender and non-distended Extremity normal capillary refill General Extremity: edema bilateral lower extremity Skin no rashes or lesions noted General Skin Exam: no breakdown Psych affect normal Appearance: appropriate Weight / BMI Weight Weight: 121.88 kg Body Mass Index (BMI) 42.7 ABG / Lab / Microbiology Data Result Diagrams: 04/12/22 08:08 04/14/22 05:23 Laboratory: Laboratory Results - last 24 hr 04/13/22 21:25: POC Glucose 262 H 04/14/22 05:23: Sodium 141, Potassium 3.8, Chloride 106, Carbon Dioxide 26.0, Anion Gap 9, BUN 33 H, Creatinine 1.58 H, Estim Creat Clear Calc 38.48, Est GFR (MDRD) Af Amer 55 L, Est GFR (MDRD) Non-Af 46 L, BUN/Creatinine Ratio 20.9 H, Glucose 162 H, Calcium 8.0 L 04/14/22 06:08: POC Glucose 161 H 04/14/22 11:06: POC Glucose 236 H 04/14/22 16:17: POC Glucose 176 H Microbiology: Microbiology 04/11/22 10:30 Nasal Secretion SARS-CoV-2 Antigen (Rapid) - Final 04/09/22 05:42 Nasal Secretion SARS-CoV-2 Antigen (Rapid) - Final 04/07/22 16:30 Nasal Secretion SARS-CoV-2 Antigen (Rapid) - Final 03/25/22 06:50 Nasal Secretion SARS-CoV-2 Antigen (Rapid) - Final 03/23/22 07:48 Nasal Secretion SARS-CoV-2 Antigen (Rapid) - Final D/C Instructions Discharge Diet: No restrictions Discharge Activity: Return to Normal Activity, May Shower and Use Walker Weight Bearing Status: Weight bearing as tolerated Call your doctor if you observe: Fever of 101 or Higher, Inability to urinate, Inability to have a bowel movement, Shortness of breath, Dizziness, Fainting spells, Swelling in the ankles, Chest pain and Uncontrolled pain Additional Instructions: Discharge home with 04/18/2022, [facility] PT/OT/SN. Please Follow Up With: Francis Kwok HEMODIALYSIS CHARGE NURSE, HEMODIALYSIS CHARGE NURSE-C When: As scheduled. Meaningful Use Info Meaningful Use Diagnoses (Choose all that apply): CHF CHF NIYA/ARB ordered at discharge?: Yes Documented LVEF (%): 55 Discharge Plan Admission Admit Date/Time: 03/21/22 15:48 Primary Reason for Your Visit: Debility. Attending Provider: Riana Canales Primary Care Provider: Tomás Patino Instructions Additional Instructions / Restrictions: Discharge home with 04/18/2022, [facility] PT/OT/SN. Discharge Orders/Prescriptions Prescriptions: New fluoxetine 40 mg Capsule 40 mg PO DAILY 30 Days Qty: 30 0RF gabapentin 600 mg Tablet 600 mg PO TID 30 Days Qty: 90 0RF albuterol sulfate 2.5 mg /3 mL (0.083 %) Solution For Nebulization 2.5 mg inhalation Q4H.RT PRN (Reason: WHEEZING) 30 Days Qty: 360 0RF isosorbide mononitrate 30 mg Tablet Extended Release 24 Hr 30 mg PO DAILY 30 Days Qty: 30 0RF carvedilol 3.125 mg Tablet 3.125 mg PO BIDCM 30 Days Qty: 60 0RF insulin lispro [Humalog KwikPen Insulin] 100 unit/mL Insulin Pen 18 unit subcut 0800,1200,1700 30 Days Qty: 18 0RF insulin glargine-yfgn 100 unit/mL (3 mL) Insulin Pen 28 unit subcut BID 30 Days Qty: 18 0RF furosemide 80 mg Tablet 80 mg PO DAILY 30 Days Qty: 30 0RF Continued warfarin 3 mg tablet 3 mg PO QMWF Rx Instructions: Managed by PCP warfarin 6 mg tablet 6 mg PO SUTUTHSA Rx Instructions: Managed by PCP latanoprost 2.5 ML drops 1 drp EACH EYE TID ropinirole 0.5 mg tablet 1 mg PO QHS nortriptyline 25 mg Capsule 25 mg PO QHS ondansetron 4 mg Tablet,Disintegrating 4 mg PO Q6H PRN (Reason: Nausea) nitroglycerin 0.4 mg tablet, sublingual 0.4 mg SL Q5M PRN (Reason: Chest Pain) Qty: 25 3RF rosuvastatin 40 mg tablet 40 mg PO QHS Qty: 90 3RF Farxiga 10 mg tablet 5 mg PO DAILY Discontinued gabapentin 300 mg capsule 900 mg PO TID lisinopril 20 mg tablet 20 mg PO DAILY Hold Instructions: Hypotension Label Comments: blood pressure albuterol sulfate 90 mcg/actuation HFA aerosol inhaler 2 puff inhalation Q4H PRN (Reason: diabetes) [id number] oil-vit D3 120 mg-180 mg -1,000 unit capsule 1 cap PO DAILY clopidogrel 75 MG tablet 75 mg PO DAILY Label Comments: blood thinner insulin lispro 100 unit/mL solution 23 unit subcut TIDCM Label Comments: diabetes Rx Instructions: plus sliding scale aspirin 81 MG tablet 81 mg PO DAILY@0800 colestipol 1 GM tablet 1 g PO BID fenofibrate nanocrystallized 145 MG tablet 145 mg PO DAILY fluoxetine 20 mg Tablet 20 mg PO DAILY Trulicity 3 mg/0.5 mL Pen Injector 3 mg SUBCUT QWEEK Rx Instructions: takes on Thursday famotidine 20 mg Tablet 20 mg PO QHS isosorbide mononitrate 60 mg Tablet Extended Release 24 Hr 60 mg PO DAILY sennosides-docusate sodium [Stool Softener-Stimulant Laxat] 8.6-50 mg Tablet 2 tab PO BID PRN PRN (Reason: Constipation) Qty: 0 0RF pantoprazole 40 mg tablet,delayed release (DR/EC) 40 mg PO BIDCM Qty: 90 3RF carvedilol 6.25 mg tablet 6.25 mg PO BID Rx Instructions: must administer with a meal/food prednisone 10 mg tablet 40 mg PO DAILY insulin glargine-yfgn 100 unit/mL (3 mL) insulin pen 35 unit subcut BID spironolactone 25 mg tablet 25 mg PO DAILY Qty: 90 4RF furosemide 40 mg tablet 80 mg PO BID Qty: 360 3RF Referrals / Follow Up: Tomás Patino MD [Primary Care Provider] - Disposition Disposition (needs filled in before D/C Order can be placed): Home Health Service
[2022-04-14] MEDS: Pramipexole Di-HCl 0.5 MG Tablet PO (20:40)
[2022-04-14] MEDS: Atorvastatin Calcium 80 MG Tablet PO (20:40)
[2022-04-14] MEDS: Nortriptyline 25 MG Capsule PO (20:40)
[2022-04-14 21:00] VITALS: PULSE 76; RESP 76; O2SAT 96
[2022-04-14 21:36] LABS: Bedside Glucose 282 mg/dL (74-106)
[2022-04-15 06:00] VITALS: BP 128/70; PULSE 74
[2022-04-15] MEDS: Gabapentin 600 MG Tablet PO ×3 (06:14→20:39)
[2022-04-15] MEDS: Fluoxetine HCl 40 MG CAPSULE PO (06:15)
[2022-04-15] MEDS: Latanoprost 0.005% 1 Bottle 1 DRP EACH EYE ×3 (06:15→20:39)
[2022-04-15] MEDS: Empagliflozin 10 MG Tablet PO (06:15)
[2022-04-15] MEDS: Pantoprazole Sodium 40 MG Tablet PO (06:15)
[2022-04-15] MEDS: busPIRone 5 MG Tablet PO ×2 (06:15→17:34)
[2022-04-15] MEDS: Petrolatum 33% Tube 1 APPLIC TOPICAL (06:16)
[2022-04-15] MEDS: Insulin Glargine-YFGN 100 UNIT/ML Pen 28 UNIT SC (06:17)
[2022-04-15] MEDS: Isosorbide Mononitrate 30 MG Tablet PO (06:18)
[2022-04-15] MEDS: Furosemide 80 MG Tablet PO (06:18)
[2022-04-15 06:40] LABS: Bedside Glucose 177 mg/dL (74-106)
[2022-04-15 07:26] VITALS: O2SAT 97
[2022-04-15] MEDS: Insulin Lispro 100 UNIT/ML INSULN.PEN 18 UNIT SC ×2 (08:04→12:20)
[2022-04-15] MEDS: Carvedilol 3.125 MG TABLET PO ×2 (08:04→17:35)
[2022-04-15 11:26] LABS: Bedside Glucose 289 mg/dL (74-106)
[2022-04-15] MEDS: Ascorbic Acid 500 MG Tablet PO (12:19)
[2022-04-15] MEDS: Ferrous Sulfate 325 MG Tablet PO (12:19)
[2022-04-15 14:37] VITALS: BP 111/66; PULSE 73; RESP 19; TEMP 35.9; O2SAT 97
[2022-04-15 17:15] LABS: Bedside Glucose 74 mg/dL (74-106)
[2022-04-15] MEDS: Warfarin 0.5 MG Tablet PO (17:34)
[2022-04-15] MEDS: Nortriptyline 25 MG Capsule PO (20:39)
[2022-04-15] MEDS: Atorvastatin Calcium 80 MG Tablet PO (20:39)
[2022-04-15] MEDS: Pramipexole Di-HCl 0.5 MG Tablet PO (20:39)
[2022-04-15 22:15] LABS: Bedside Glucose 269 mg/dL (74-106)
[2022-04-16 01:38] VITALS: PULSE 69; RESP 22
[2022-04-16] MEDS: Albuterol 2.5 MG/3 ML VIAL.NEB. INHALATION (01:38)
[2022-04-16] MEDS: Pantoprazole Sodium 40 MG Tablet PO (05:43)
[2022-04-16] MEDS: Empagliflozin 10 MG Tablet PO (05:43)
[2022-04-16] MEDS: Latanoprost 0.005% 1 Bottle 1 DRP EACH EYE ×3 (05:43→20:04)
[2022-04-16] MEDS: busPIRone 5 MG Tablet PO ×2 (05:43→17:38)
[2022-04-16] MEDS: Furosemide 80 MG Tablet PO ×2 (05:43→15:02)
[2022-04-16] MEDS: Isosorbide Mononitrate 30 MG Tablet PO (05:43)
[2022-04-16] MEDS: Fluoxetine HCl 40 MG CAPSULE PO (05:43)
[2022-04-16] MEDS: Gabapentin 600 MG Tablet PO ×3 (05:47→20:04)
[2022-04-16] MEDS: Insulin Glargine-YFGN 100 UNIT/ML Pen 15 UNIT SC ×2 (05:49→20:02)
--- NOTE | 2022-04-16 05:56 | NURSING ---
Addendum entered by Lm Tellez 04/16/22 06:02: SpO2 at 95% this AM on RA. Patient asked about what he should do if this happens at home. Will communicate with Dr. Wisdom. Original Note: At 0124, patient had returned to bed after taking self to bathroom. C/o feeling SOB, chest tightness. BP 130/75, P 71, O2 92% on RA. Does wear C-pap without O2 bleed in at HS. O2 2L/min via NC applied. Expiratory wheezing noted. SpO2 increased to 97% after O2 had been applied. Call to RT for breathing tx. Following breathing tx, patient stated he was feeling better, tightness was relieved. Continue to hear expiratory wheezing at times. C-pap reapplied. Patient rested the rest of the night without issue.
[2022-04-16 07:01] LABS: Bedside Glucose 187 mg/dL (74-106)
[2022-04-16] MEDS: Insulin Lispro 100 UNIT/ML INSULN.PEN 10 UNIT SC ×3 (07:51→17:39)
[2022-04-16] MEDS: Carvedilol 3.125 MG TABLET PO ×2 (07:52→17:38)
[2022-04-16 07:55] VITALS: BP 146/75; PULSE 83
[2022-04-16 11:30] LABS: Bedside Glucose 292 mg/dL (74-106)
[2022-04-16] MEDS: Ferrous Sulfate 325 MG Tablet PO (11:49)
[2022-04-16] MEDS: Ascorbic Acid 500 MG Tablet PO (11:49)
[2022-04-16 14:05] VITALS: BP 103/70; PULSE 87; RESP 17; TEMP 36.1; O2SAT 98
[2022-04-16 15:03] VITALS: BP 116/66; PULSE 81
[2022-04-16 16:45] LABS: Bedside Glucose 172 mg/dL (74-106)
[2022-04-16] MEDS: Warfarin 0.5 MG Tablet PO (17:38)
[2022-04-16 17:43] VITALS: BP 124/67; PULSE 87
[2022-04-16] MEDS: Pramipexole Di-HCl 0.5 MG Tablet PO (20:05)
[2022-04-16] MEDS: Atorvastatin Calcium 80 MG Tablet PO (20:05)
[2022-04-16] MEDS: Nortriptyline 25 MG Capsule PO (20:05)
[2022-04-16 20:08] VITALS: PULSE 84; RESP 16; O2SAT 94
[2022-04-16 22:10] LABS: Bedside Glucose 269 mg/dL (74-106)
[2022-04-17] MEDS: Latanoprost 0.005% 1 Bottle 1 DRP EACH EYE ×3 (05:21→20:02)
[2022-04-17] MEDS: Fluoxetine HCl 40 MG CAPSULE PO (05:21)
[2022-04-17] MEDS: Pantoprazole Sodium 40 MG Tablet PO (05:21)
[2022-04-17] MEDS: Isosorbide Mononitrate 30 MG Tablet PO (05:22)
[2022-04-17] MEDS: busPIRone 5 MG Tablet PO ×2 (05:22→17:43)
[2022-04-17] MEDS: Empagliflozin 10 MG Tablet PO (05:22)
[2022-04-17] MEDS: Furosemide 80 MG Tablet PO (05:23)
[2022-04-17] MEDS: Insulin Glargine-YFGN 100 UNIT/ML Pen 15 UNIT SC (05:28)
[2022-04-17] MEDS: Gabapentin 600 MG Tablet PO ×3 (05:28→20:02)
[2022-04-17] MEDS: Petrolatum 33% Tube 1 APPLIC TOPICAL (05:33)
[2022-04-17 05:43] LABS: International Normalized Ratio 1.3; Prothrombin Time (Protime)PT. 16.3 SECONDS (11.7-14.9)
[2022-04-17 05:55] LABS: Anion Gap 8 (5-15); BUN 34 mg/dL (7-18); Calcium,Total 8.8 mg/dL (8.5-10.1); Chloride 103 mmol/L (98-107); EST Glomerular Filtration Rate 42 mL/min (>60); Est Glom Filt Rate - Afr Amer 51 mL/min (>60); Estimated Creatinine Clearance 35.76 ml/min; Glucose 185 mg/dL (74-106); Sodium Level 142 mmol/L (136-145)
[2022-04-17 05:55] LABS: Bedside Glucose 182 mg/dL (74-106)
[2022-04-17 06:36] LABS: Bedside Glucose 192 mg/dL (74-106)
[2022-04-17 07:41] VITALS: O2SAT 94
[2022-04-17] MEDS: Carvedilol 3.125 MG TABLET PO ×2 (08:06→17:43)
[2022-04-17] MEDS: Insulin Lispro 100 UNIT/ML INSULN.PEN 13 UNIT SC ×3 (08:06→17:41)
[2022-04-17 08:08] VITALS: BP 108/69; PULSE 80
[2022-04-17 09:30] VITALS: PULSE 79; O2SAT 93
[2022-04-17 11:40] LABS: Bedside Glucose 180 mg/dL (74-106)
--- NOTE | 2022-04-17 11:49 | CASEMGMT ---
Social Work BIMS () and PHQ-9 (08/23) completed for MDS assessment. Nesha Andres MSW CLASSROOM TEACHER
[2022-04-17] MEDS: Ferrous Sulfate 325 MG Tablet PO (12:02)
[2022-04-17] MEDS: Ascorbic Acid 500 MG Tablet PO (12:02)
[2022-04-17 13:54] VITALS: BP 110/69; PULSE 84; RESP 16; TEMP 36.4; O2SAT 96
--- NOTE | 2022-04-17 14:02 | MDS.RN ---
Pain assessment for BUTCH 04/18/22.
[2022-04-17 17:10] LABS: Bedside Glucose 183 mg/dL (74-106)
[2022-04-17] MEDS: Insulin Glargine-YFGN 100 UNIT/ML Pen 20 UNIT SC (17:42)
[2022-04-17] MEDS: Warfarin 0.5 MG Tablet PO (17:43)
[2022-04-17] MEDS: Nortriptyline 25 MG Capsule PO (20:05)
[2022-04-17] MEDS: Atorvastatin Calcium 80 MG Tablet PO (20:05)
[2022-04-17] MEDS: Pramipexole Di-HCl 0.5 MG Tablet PO (20:05)
[2022-04-17 21:35] LABS: Bedside Glucose 165 mg/dL (74-106)
[2022-04-18] MEDS: Empagliflozin 10 MG Tablet PO (05:09)
[2022-04-18] MEDS: Gabapentin 600 MG Tablet PO (05:09)
[2022-04-18] MEDS: Pantoprazole Sodium 40 MG Tablet PO (05:10)
[2022-04-18] MEDS: Fluoxetine HCl 40 MG CAPSULE PO (05:10)
[2022-04-18] MEDS: busPIRone 5 MG Tablet PO (05:10)
[2022-04-18] MEDS: Furosemide 80 MG Tablet PO (05:10)
[2022-04-18] MEDS: Isosorbide Mononitrate 30 MG Tablet PO (05:10)
[2022-04-18] MEDS: Latanoprost 0.005% 1 Bottle 1 DRP EACH EYE (05:11)
[2022-04-18] MEDS: Petrolatum 33% Tube 1 APPLIC TOPICAL (05:17)
[2022-04-18 05:19] VITALS: BP 97/57; PULSE 73
--- NOTE | 2022-04-18 05:20 | NURSING ---
BP this AM slightly decreased at 97/57, pulse 73. Reviewed protocol when getting up-sitting for a few minutes prior to standing. Encouraged patient to increase fluid intake. Will continue to monitor.
[2022-04-18 06:09] LABS: Anion Gap 8 (5-15); BUN 31 mg/dL (7-18); BUN/Creat Ratio 20.4 RATIO (10-20); Calcium,Total 8.5 mg/dL (8.5-10.1); Chloride 101 mmol/L (98-107); Creatinine, Serum 1.52 mg/dL (0.70-1.30); EST Glomerular Filtration Rate 48 mL/min (>60); Est Glom Filt Rate - Afr Amer 58 mL/min (>60); Glucose 165 mg/dL (74-106); Potassium 3.6 mmol/L (3.5-5.1); Sodium Level 137 mmol/L (136-145)
[2022-04-18 06:31] LABS: Bedside Glucose 188 mg/dL (74-106)
[2022-04-18] MEDS: Insulin Glargine-YFGN 100 UNIT/ML Pen 20 UNIT SC (06:43)
[2022-04-18] MEDS: Insulin Lispro 100 UNIT/ML INSULN.PEN 13 UNIT SC (07:40)
[2022-04-18] MEDS: Carvedilol 3.125 MG TABLET PO (07:40)
[2022-04-18 07:43] VITALS: BP 115/67; PULSE 81; RESP 16; TEMP 36.6; O2SAT 94
[2022-04-18 07:45] VITALS: PULSE 81; RESP 16; O2SAT 94
== END 2022-04-18 10:30 | disposition home health service (06) | DRG 191 ==
PROVIDERS: Family Medicine Geriatric Medicine; Admitting Provider Internal Medicine; PCP Family Medicine; Referring Provider Internal Medicine; Visit Provider Internal Medicine
DX: J44.1 Chronic obstructive pulmonary disease with (acute) exacerbation (principal); I50.22 Chronic systolic (congestive) heart failure; Z68.41 Body mass index [BMI] 40.0-44.9, adult; E11.51 Type 2 diabetes mellitus with diabetic peripheral angiopathy without gangrene; E66.01 Morbid (severe) obesity due to excess calories; I11.0 Hypertensive heart disease with heart failure; D50.9 Iron deficiency anemia, unspecified; E78.5 Hyperlipidemia, unspecified; Z79.4 Long term (current) use of insulin; I25.10 Atherosclerotic heart disease of native coronary artery without angina pectoris; I25.5 Ischemic cardiomyopathy; I25.2 Old myocardial infarction; G47.33 Obstructive sleep apnea (adult) (pediatric); F41.9 Anxiety disorder, unspecified; Z79.01 Long term (current) use of anticoagulants; Z79.82 Long term (current) use of aspirin; Z79.02 Long term (current) use of antithrombotics/antiplatelets; Z87.891 Personal history of nicotine dependence; Z95.810 Presence of automatic (implantable) cardiac defibrillator; Z86.718 Personal history of other venous thrombosis and embolism; Z79.899 Other long term (current) drug therapy
CPT/HCPCS: 36415; 71046; 74018; 80048; 82962; 83880; 85025; 85610; 87426; 87811; 93005; 94002; 94003; 94640; 94762; 97110; 97116; 97162; 97166; 97530; 97535; 97802; J7030; J7040; J7050; A4216; J2916

== ENCOUNTER → 2022-03-27 | Outpatient (CLI) | payer MEDICARE, OTHER, SELFPAY ==
[2017-11-06 10:25] VITALS: BMI 37.2
--- NOTE | 2022-03-27 07:23 | CT_ITS ---
STUDY: CT CHEST WITHOUT CONTRAST REASON FOR EXAM: Male, 76 years old. ? abscess around pacemaker RADIATION DOSAGE (If Supplied By Facility): CTDIvol = ( 20.11 ) mGy, DLP = ( 864.31 ) mGycm TECHNIQUE: Transaxial imaging was performed without the administration of intravenous contrast material. Individualized dose optimization techniques were used for this CT. COMPARISON: CTA of the chest dated SEPTEMBER 05, 2019 FINDINGS: Left chest cardiac device with right heart leads. Surgical clips are seen at the medial aspect of the left chest cardiac device. No fluid collection or abscess or subcutaneous air or edema is seen around the cardiac device. No edema or swelling is seen in the underlying pectoralis muscles. The lungs are normal. No consolidation or pulmonary edema or infiltrates are present. Mild scattered interstitial scarring of both lungs redemonstrated. There is no demonstrated pleural abnormality. Normal heart and pericardium. There are calcifications of the coronary arteries. Normal mediastinum. Normal hilar regions. Normal unenhanced pulmonary arteries. Normal aorta arch and descending thoracic aorta. There are multi-level degenerative changes of the thoracic spine. Redemonstration of a dromedary hump/ lobulation in the anterior aspect of the upper pole of the left kidney. No mass is present. Mild splenomegaly redemonstrated. The remaining upper abdominal structures are stable. Subcentimeter gastroesophageal reactive lymphadenopathy unchanged from prior study. CT/Chest without Contrast IMPRESSION: 1. Left chest cardiac device with right heart leads. Surgical clips are seen at the medial aspect of the left chest cardiac device. No fluid collection or abscess or subcutaneous air or edema is seen around the cardiac device. No edema or swelling is seen in the underlying pectoralis muscles. 2. Mild scattered interstitial scarring of both lungs. No consolidation or pulmonary edema or pleural effusions. Electronically Signed: Fahad Evans MD at 9:32 EST Reading Location ID and State: [facility] / [place] , Service support ,
== END | disposition home or self-care (01) ==
LOC: CT 07:21
PROVIDERS: PCP Family Medicine; Visit Provider Family Medicine Geriatric Medicine
DX: I25.10 Atherosclerotic heart disease of native coronary artery without angina pectoris (principal)
CPT/HCPCS: 71250

== ENCOUNTER → 2022-04-04 | Outpatient (CLI) | payer MEDICARE, OTHER, SELFPAY ==
[2017-11-06 10:25] VITALS: BMI 37.2
--- NOTE | 2022-04-04 09:34 | VDLE_ITS ---
Reason For Study: LEG PAIN RIGHT LEFT GSV stripping reported by patient. Bright GSV is normal. intraluminal echoes noted in portions of CFV is compressible, spontaneous, phasic, vessel. Partially compressible. competent, and demonstrates normal CFV is compressible, spontaneous, phasic, augmentation. competent and demonstrates normal FV is compressible, spontaneous, phasic, augmentation. competent and demonstrates normal FV is compressible, spontaneous, phasic, augmentation. competent and demonstrates normal POP V is compressible, spontaneous, phasic augmentation. and competent. POP V is compressible, spontaneous, phasic, T/P Trunk is compressible. competent and demonstrates normal PTV is dilated and non-compressible with augmentation. mixed intraluminal echoes. T/P Trunk is compressible. LT PerV is compressible. PTV is compressible. RT PerV is compressible. Procedure This is a venous duplex using B-mode, color flow and spectral Doppler. Exam performed portable in patient room. The exam was diagnostic. A preliminary report was called and/or faxed to TCU Nurse responsible for patient. 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 Patent and compressible left great saphenous vein Ordering Physician: Neal Wisdom Chi Referring Physician: MD Sukumar Tomás Performed By: Leonardo Mkcinney, LAURIET
== END | disposition home or self-care (01) ==
LOC: CVS 09:31
PROVIDERS: PCP Family Medicine; Visit Provider Family Medicine Geriatric Medicine
DX: M79.604 Pain in right leg (principal)
CPT/HCPCS: 93970

== ENCOUNTER 2022-05-07 10:33 | Outpatient (RCR) | payer MEDICARE, OTHER, SELFPAY ==
[2017-11-06 10:25] VITALS: BMI 37.2
[2022-05-07 10:59] LABS: Hematocrit 38.3 % (40-54); Hemoglobin 11.7 g/dL (13.0-16.5); Mean Corp Hgb Conc 30.5 g/dL (32-36); Mean Corpuscular Hgb 25.3 pg (27.0-32.0); Mean Corpuscular Volume 82.9 fL (80-94); Mean Platelet Vol. 9.3 fl (6.2-12.0); POSITIVE MORPHOLOGY YES; Platelet Count 146 K/mm3 (150-450); RBC Distribution Width CV 22.8 % (11.6-14.6); RBC Distribution Width SD 67.7 fl (35.1-43.9); Red Blood Count 4.62 M/mm3 (4.6-6.2); White Blood Count 4.6 K/mm3 (4.4-11.0)
[2022-05-07 11:00] LABS: Scan Indicated on CBC? Y/N YES- FLAGS NOTED
[2022-05-07 11:14] LABS: ALB/GLOB Ratio 0.8 RATIO (0.9-2.4); AST(SGOT) 54 U/L (15-37); Alanine Aminotransfer ALT/SGPT 57 U/L (16-61); Albumin, Serum 3.1 g/dL (3.2-5.0); Alkaline Phosphatase 106 U/L (45-117); Anion Gap 5 (5-15); BUN 38 mg/dL (7-18); BUN/Creat Ratio 24.4 RATIO (10-20); Calcium,Total 8.6 mg/dL (8.5-10.1); Chloride 102 mmol/L (98-107); Creatinine, Serum 1.56 mg/dL (0.70-1.30); EST Glomerular Filtration Rate 46 mL/min (>60); Est Glom Filt Rate - Afr Amer 56 mL/min (>60); Globulin 3.7 g/dL (2.2-4.2); Glucose 286 mg/dL (74-106); Potassium 4.1 mmol/L (3.5-5.1); Protein, Total 6.8 g/dL (6.4-8.2); Sodium Level 138 mmol/L (136-145)
== END 2022-05-07 18:00 | disposition home or self-care (01) ==
LOC: HHLAB 10:33
PROVIDERS: PCP Family Medicine; Visit Provider Family Medicine
DX: I11.0 Hypertensive heart disease with heart failure (principal); I50.33 Acute on chronic diastolic (congestive) heart failure
CPT/HCPCS: 80053; 85027

== ENCOUNTER → 2022-05-20 | Outpatient (CLI) | payer MEDICARE, OTHER, SELFPAY ==
[2017-11-06 10:25] VITALS: BMI 37.2
[2022-05-20 12:56] LABS: Anion Gap 7 (5-15); BUN 27 mg/dL (7-18); BUN/Creat Ratio 19.3 RATIO (10-20); Calcium,Total 8.7 mg/dL (8.5-10.1); Chloride 102 mmol/L (98-107); EST Glomerular Filtration Rate 52 mL/min (>60); Est Glom Filt Rate - Afr Amer 63 mL/min (>60); Glucose 250 mg/dL (74-106); Potassium 3.5 mmol/L (3.5-5.1); Sodium Level 139 mmol/L (136-145)
[2022-05-20] MEDS: 0.9% NaCl Peripheral Flush Adult/Peds IV (14:21)
[2022-05-20] MEDS: Furosemide 40 MG/4 ML Vial IV (14:22)
[2022-05-20 14:36] VITALS: BP 135/67; PULSE 86; RESP 16; TEMP 36.5; O2SAT 93; BMI 46.4
== END | disposition home or self-care (01) ==
PROVIDERS: PCP Family Medicine; Visit Provider Internal Medicine Cardiovascular Disease
DX: I50.20 Unspecified systolic (congestive) heart failure (principal); R06.02 Shortness of breath; R63.5 Abnormal weight gain
CPT/HCPCS: 96372; 36415; 80048; J1940

== ENCOUNTER → 2022-05-21 | Outpatient (CLI) | payer MEDICARE, OTHER, SELFPAY ==
[2017-11-06 10:25] VITALS: BMI 37.2
[2022-05-21 14:13] VITALS: BP 138/84; PULSE 90; RESP 20; TEMP 35.7; O2SAT 96
[2022-05-21] MEDS: 0.9% NaCl Peripheral Flush Adult/Peds IV ×2 (14:18→14:23)
[2022-05-21] MEDS: Furosemide 40 MG/4 ML Vial IV (14:23)
== END | disposition home or self-care (01) ==
LOC: MEDOUTP 14:00
PROVIDERS: PCP Family Medicine; Referring Provider Internal Medicine Cardiovascular Disease; Visit Provider Internal Medicine Cardiovascular Disease
DX: I50.20 Unspecified systolic (congestive) heart failure (principal); R06.02 Shortness of breath; R63.5 Abnormal weight gain
CPT/HCPCS: 96372; A4216; J1940

== ENCOUNTER → 2022-05-22 | Outpatient (CLI) | payer MEDICARE, OTHER, SELFPAY ==
[2017-11-06 10:25] VITALS: BMI 37.2
[2022-05-22] MEDS: 0.9% NaCl Peripheral Flush Adult/Peds IV ×3 (14:08→14:24)
[2022-05-22] MEDS: Furosemide 40 MG/4 ML Vial IV (14:13)
[2022-05-22 14:24] VITALS: BP 124/65; PULSE 82; RESP 18; TEMP 36.1; O2SAT 97
[2022-05-22 14:55] LABS: Anion Gap 8 (5-15); BUN 27 mg/dL (7-18); BUN/Creat Ratio 16.1 RATIO (10-20); Calcium,Total 8.3 mg/dL (8.5-10.1); Chloride 102 mmol/L (98-107); Creatinine, Serum 1.68 mg/dL (0.70-1.30); EST Glomerular Filtration Rate 42 mL/min (>60); Est Glom Filt Rate - Afr Amer 51 mL/min (>60); Glucose 282 mg/dL (74-106); Potassium 3.5 mmol/L (3.5-5.1); Sodium Level 138 mmol/L (136-145)
== END | disposition home or self-care (01) ==
LOC: MEDOUTP 13:58
PROVIDERS: PCP Family Medicine; Referring Provider Internal Medicine Cardiovascular Disease; Visit Provider Internal Medicine Cardiovascular Disease
DX: I50.32 Chronic diastolic (congestive) heart failure (principal); R06.02 Shortness of breath; R63.5 Abnormal weight gain
CPT/HCPCS: 96372; 80048; A4216; J1940

== ENCOUNTER 2022-05-23 11:01 | Emergency (ER) | payer MEDICARE, OTHER, SELFPAY ==
[2017-11-06 10:25] VITALS: BMI 37.2
[2022-05-23] VITALS (7 sets, daily range): BP systolic 108–162; BP diastolic 72–98; PULSE 73–86; RESP 15–22; TEMP 35.7; O2SAT 94–98; BMI 45.3
--- NOTE | 2022-05-23 11:23 | EKG12_ITS ---
Test Reason : SOB Blood Pressure : / mmHG Vent. Rate : 075 BPM Atrial Rate : 075 BPM P-R Int : 218 ms QRS Dur : 156 ms QT Int : 394 ms P-R-T Axes : 031 -34 122 degrees QTc Int : 439 ms Poor data quality, interpretation may be adversely affected Sinus rhythm with 1st degree A-V block Left axis deviation Right bundle branch block Inferior infarct , age undetermined Anterolateral infarct , age undetermined Abnormal ECG Confirmed by LONG SIMMONS, ARNIE ([id number]), make up editor SABINE ALVAREZ ([id number]) on 05/27/2022 8:41:33 AM Referred By: IRON Confirmed By:ARNIE ALVES MD
--- NOTE | 2022-05-23 11:25 | ED.VIS.DYS ---
HPI History of Present Illness Chief Complaint: Shortness of Breath Informant: patient and spouse/S.O. Narrative Narrative: Patient and his are very poor historians. Basically, it sounds like the patient was admitted here for over a month because of dyspnea but they do not know exactly why, they just know that he has heart problems and states that he was dyspneic when he left the hospital around 2 weeks ago, it has gradually been getting worse, and now he can hardly walk because of getting so short of breath. He is also orthopneic. He has had leg edema, he states that he is on Lasix and it has helped with that but despite the leg edema improving, he has still been gaining weight. He has a minor nonproductive cough that is not new, no hemoptysis, he gets occasional chest tightness especially when he is doing activities, goes away with rest, and he denies any fevers or chills or other new symptoms. He states he had some diarrhea a week ago but none since and no blood or melena. 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 HFrEF (heart failure with reduced ejection fraction) History of deep vein thrombosis (DVT) of lower extremity History of non-ST elevation myocardial infarction (NSTEMI) (11/05/16) Hyperlipidemia Ischemic cardiomyopathy Localized edema Morbid obesity with BMI of 40.0-44.9, adult Nondisp fracture of fifth left metatarsal bone with routine healing Nonrheumatic tricuspid (valve) insufficiency Nonsustained ventricular tachycardia Normocytic anemia 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 Other specified peripheral vascular diseases Paroxysmal atrial flutter Peripheral vascular occlusive disease Type 2 diabetes mellitus Ulcer of left lower extremity with fat layer exposed Ulcer of right lower extremity Ulcer of right lower extremity with fat layer exposed Ulcer of right lower extremity with fat layer exposed Uncontrolled type 2 diabetes mellitus Walking difficulty due to ankle and foot Xerosis cutis Home Medications latanoprost 0.005 % eye drops 1 drp EACH EYE TID glaucoma 11/17/18 [History Last Taken 03/16/22] nortriptyline 25 mg capsule 25 mg PO QHS depression 04/21/21 [History Last Taken 03/15/22] rosuvastatin 40 mg tablet 40 mg PO QHS Cholesterol #90 tabs 07/08/21 [Rx Last Taken 03/15/22] warfarin 3 mg tablet 3 mg PO QMWF blood thinner 09/11/21 [History Last Taken 03/14/22] warfarin 6 mg tablet 6 mg PO SUTUTHSA blood thinner 09/11/21 [History Last Taken 03/16/22] ropinirole 0.5 mg tablet 1 mg PO QHS legs 12/10/21 [History Last Taken 03/15/22] ondansetron 4 mg disintegrating tablet 4 mg PO Q6H PRN Nausea 03/16/22 [History Last Taken Unknown] albuterol sulfate 2.5 mg/3 mL (0.083 %) solution for nebulization 2.5 mg (3 mL) inhalation Q4H.RT PRN WHEEZING 30 days #360 mL 04/14/22 [Rx Last Taken Unknown] carvedilol 3.125 mg tablet 3.125 mg PO BIDCM 30 days #60 tabs 04/14/22 [Rx Last Taken Unknown] fluoxetine 40 mg capsule 40 mg PO DAILY 30 days #30 caps 04/14/22 [Rx Last Taken Unknown] gabapentin 600 mg tablet 600 mg PO TID 30 days #90 tabs 04/14/22 [Rx Last Taken Unknown] insulin glargine-yfgn 100 unit/mL (3 mL) subcutaneous pen 28 unit (0.28 mL) subcut BID 30 days #18 mL 04/14/22 [Rx Last Taken Unknown] insulin lispro 100 unit/mL subcutaneous pen (Humalog KwikPen (U-100) Insulin) 18 unit (0.18 mL) subcut 0800,1200,1700 30 days #18 mL 04/14/22 [Rx Last Taken Unknown] isosorbide mononitrate 30 mg tablet,extended release 24 hr 30 mg PO DAILY 30 days #30 tabs 04/14/22 [Rx Last Taken Unknown] albuterol sulfate 90 mcg/actuation aerosol inhaler 2 puff inhalation Q6H PRN shortness of breath or wheezing #8.5 grams 04/16/22 [Rx Last Taken Unknown] dapagliflozin 10 mg tablet (Yoselin) 10 mg PO DAILY 04/18/22 [History Last Taken Unknown] nitroglycerin 0.4 mg sublingual tablet 0.4 mg sublingual Q5M PRN Chest Pain #25 tabs 04/21/22 [Rx Last Taken Unknown] dulaglutide 3 mg/0.5 mL subcutaneous pen injector (Trulicity) 3 mg subcut QWEEK 05/20/22 [History Last Taken Unknown] pantoprazole 40 mg tablet,delayed release (Protonix) 40 mg PO DAILY 05/20/22 [History Last Taken Unknown] furosemide 80 mg tablet 80 mg PO BID 05/23/22 [History Last Taken Unknown] prednisone 20 mg tablet 20 mg PO DAILY #4 TABLETS 05/23/22 [Rx Last Taken Unknown] Allergy/AdvReac Type Severity Reaction Status Date / Time ceftriaxone sodium Allergy Rash Verified 05/20/22 14:17 [From Rocephin] milk AdvReac Diarrhea Verified 05/20/22 14:17 morphine AdvReac hallucinati Verified 05/20/22 14:17 ons Family History (Reviewed 04/18/22 @ 15:39 by Francis Kwok STATEMENT SERVICES REPRESENTATIVE, STATEMENT SERVICES REPRESENTATIVE-C) Father , Age 78 Prostate cancer Mother , Age 80 CVA (cerebral vascular accident) Sister Congestive heart failure Diabetes Hypertension Hyperlipidemia Atrial fibrillation CAD (coronary artery disease) Cardiac defibrillator in situ Sister Breast cancer Sister Breast cancer Brother CAD (coronary artery disease) Myocardial infarction Diabetes Brother Diabetes Brother , Age 74 COPD (chronic obstructive pulmonary disease) Sister Alive and well Surgical History (Reviewed 04/18/22 @ 15:39 by Francis Kwok STATEMENT SERVICES REPRESENTATIVE, STATEMENT SERVICES REPRESENTATIVE-C) H/O colonoscopy with polypectomy (11/2017) History of angioplasty of peripheral vessel History of coronary artery stent placement (12/15/14) History of detached retina repair History of electrophysiologic study (11/23/02) History of implantable cardiac defibrillator (ICD) (11/19/17) History of left heart catheterization (12/06/18) History of radiofrequency ablation procedure for cardiac arrhythmia (07/01/11) ICD (implantable cardioverter-defibrillator) in place Social History household members: spouse housing: house current occupational status: retired pets and animals: Yes (2 dogs, 2 cats) Smoking Status: Former smoker pack-years: 20 how long ago did patient quit smokin years ago alcohol intake: never caffeine: Yes Type: coffee Number of servings: 1 ROS ROS ED Constitutional Constitutional ED: Reports fatigue, malaise and weakness; Denies chills or fever(s) Eyes Eyes: Denies change in vision or diplopia ENT ENT ED: Denies rhinorrhea or sore throat Cardiovascular Cardiovascular: Reports leg edema and orthopnea; Denies chest pain, palpitations or syncope Respiratory/Chest Respiratory/Chest: Reports as per HPI, chest tightness, cough, dyspnea, dyspnea on exertion and orthopnea; Denies sputum Gastrointestinal Gastrointestinal: Denies abdominal pain, diarrhea, nausea or vomiting Genitourinary Genitourinary ED: Denies dysuria or hematuria Musculoskeletal Musculoskeletal: Denies back pain or neck pain Integumentary Denies abscess or rash Neurologic Neurologic: Denies headache(s), paresthesias or weakness Psychiatric Psychiatric: Denies anxiety or suicidal thoughts EXAM Physical Exam Const Vital Signs: 05/23/22 11:02 05/23/22 11:27 05/23/22 11:27 Temperature 96.3 F L Temperature Source Temporal Pulse Rate 86 74 Respiratory Rate 22 H 20 H Respiratory Effort Short of Breath Labored Accessory Muscle Use Respiratory Pattern Tachypnea Blood Pressure 162/98 H 128/76 H Blood Pressure Mean 119 93 Pulse Ox 98 96 Oxygen Delivery Method Room Air Room Air Room Air 05/23/22 11:31 05/23/22 13:12 05/23/22 13:01 Temperature Temperature Source Pulse Rate 75 74 73 Respiratory Rate 17 19 H 15 Respiratory Effort Respiratory Pattern Normal Blood Pressure 108/72 118/79 Blood Pressure Mean 84 90 Pulse Ox 96 96 Oxygen Delivery Method Room Air Positive well nourished, well developed and obese General Appearance ED: well developed and NAD Nutritional Appearance: obese HEENT Reports moist mucous membranes normocephalic and atraumatic Eyes PERRL and EOMs intact bilaterally Neck full ROM, supple and no JVD Resp normal respiratory effort Resp Narrative: Conversational dyspnea but no respiratory distress. Expiratory wheezes, diminished breath sounds throughout, trachea midline symmetric breath sounds. No rales or rhonchi. Cardio Cardio Narrative: Very faint heart sounds not able to evaluate for a murmur GI non-tender and non-distended Auscultation: normoactive bowel sounds Palpation: soft Back/Spine no CVA tenderness General Back: other FROM Extremity normal to inspection General Extremety ED: Yes edema; Negative for pulses abnormal or tenderness General Extremity: edema bilateral lower extremity Details: moderate; Negative for pulses abnormal Neuro oriented x3, CN's II-XII intact bilaterally and no sensory deficits noted Sensorium / Orientation: awake and alert Motor Exam: general weakness Skin no rashes or lesions noted and no wounds MDM MDM MDM Narrative Medical decision making narrative: Patient does apparently have a history of CHF with reduced ejection fraction. I reviewed his old echocardiogram, the most recent one was from this past February. The estimated ejection fraction was 55%, with what appeared to be normal LV systolic function and size with mild tricuspid valve insufficiency and no other major valvular abnormalities. While obtaining work-up for his dyspnea and chest pain, he was treated empirically with Lasix 80 mg. On reevaluation, he states this did not help at all with his breathing, while sitting at rest he is mildly short of breath. His work-up is really unremarkable including troponin, BNP which is well within normal limits, and 1 view chest x-ray which on my interpretation showed nothing acute, radiology was in agreement. Given all of this, much less likely that he is having acute congestive heart failure as etiology for his symptoms. Therefore, gave him a duo nebulizer treatment. He said this did help. Afterwards we ambulated him, he did not go below 94% on room air, he said he was a little dyspneic but he did okay. I offered admission for his symptoms he says he is able to go home and prefers to go home. After this he states he has both a rescue inhaler and an albuterol nebulizer machine at home and he has medication for it to use just has not tried it. He states he sees pulmonology Dr. Ayala. I reviewed an outside note from pulmonology, from a year ago. He apparently has a history of obstructive sleep apnea, and his EF was 45% back then, better on his most recent echocardiogram. He was gaining weight due to leg edema then too. I do not know if he has had pulmonary function testing or not. Given the fact that he is ruling out for acute congestive heart failure at this time, I am going to put him on a very short course of prednisone 20 mg daily so as not to encourage more fluid retention, continue the Lasix 80 mg twice daily and follow-up with pulmonology as an outpatient. He is comfortable with that plan. Lab Data Attestation: I reviewed the patient's lab results. Labs: Laboratory Results - last 24 hr 05/23/22 05/23/22 05/23/22 11:20 11:20 11:20 WBC 5.4 RBC 4.73 Hgb 11.4 L Hct 39.0 L MCV 82.5 MCH 24.1 L MCHC 29.2 L RDW Std Deviation 60.0 H RDW Coeff of Galo 19.9 H Plt Count 167 MPV 10.1 Immature Gran % (Auto) 0.600 Neut % (Auto) 71.0 H Lymph % (Auto) 15.2 L [place] % (Auto) 8.6 Eos % (Auto) 3.7 Baso % (Auto) 0.9 Absolute Neuts (auto) 3.8 Absolute Lymphs (auto) 0.82 L Nucleated RBC % 0 Sodium 139 Potassium 3.7 Chloride 103 Carbon Dioxide 29.0 Anion Gap 7 BUN 30 H Creatinine 1.42 H Estim Creat Clear Calc 38.50 Est GFR (MDRD) Af Amer 62 Est GFR (MDRD) Non-Af 51 L BUN/Creatinine Ratio 21.1 H Glucose 217 H Calcium 8.9 Troponin I High Sens 40 B-Natriuretic Peptide 75.3 Radiography Diagnostic Testing: Clinical Impression(s) from Imaging Studies Chest X-Ray 05/23/22 11:35 IMPRESSION: 1. No acute findings in the chest. 2. Mild increase elevation of the right hemidiaphragm is suspicious for right phrenic nerve paresis. 3. No significant interval change when compared to 04/09/2022. Electronically Signed: Kade Chauhan MD at 11:50 EST , Rhythm Strip Rhythm Strip: Sinus Rhythm Rate: 75 Ectopy: None EKG Initial EKG: Attestation: I personally reviewed and interpreted this EKG as follows: Interpretation: Sinus Rhythm, No Acute Injury Pattern, RBBB and LAFB Prior EKG tracings: available for review Prior: Unchanged Discharge Plan Triage Chief Complaint: Shortness of Breath ED Provider: Yaya Reddy Dx/Rx/DC Orders Clinical Impression: Dyspnea, Bilateral edema of lower extremity Instructions: ED Dyspnea Prescriptions: New prednisone 20 mg tablet 20 mg PO DAILY Qty: 4 0RF No Action warfarin 3 mg tablet 3 mg PO QMWF Rx Instructions: Managed by PCP warfarin 6 mg tablet 6 mg PO SUTUTHSA Rx Instructions: Managed by PCP Farxiga 10 mg tablet 10 mg PO DAILY latanoprost 2.5 ML drops 1 drp EACH EYE TID ropinirole 0.5 mg tablet 1 mg PO QHS nortriptyline 25 mg Capsule 25 mg PO QHS ondansetron 4 mg Tablet,Disintegrating 4 mg PO Q6H PRN (Reason: Nausea) fluoxetine 40 mg Capsule 40 mg PO DAILY 30 Days Qty: 30 0RF gabapentin 600 mg Tablet 600 mg PO TID 30 Days Qty: 90 0RF albuterol sulfate 2.5 mg /3 mL (0.083 %) Solution For Nebulization 2.5 mg inhalation Q4H.RT PRN (Reason: WHEEZING) 30 Days Qty: 360 0RF isosorbide mononitrate 30 mg Tablet Extended Release 24 Hr 30 mg PO DAILY 30 Days Qty: 30 0RF carvedilol 3.125 mg Tablet 3.125 mg PO BIDCM 30 Days Qty: 60 0RF insulin lispro [Humalog KwikPen Insulin] 100 unit/mL Insulin Pen 18 unit subcut 0800,1200,1700 30 Days Qty: 18 0RF insulin glargine-yfgn 100 unit/mL (3 mL) Insulin Pen 28 unit subcut BID 30 Days Qty: 18 0RF albuterol sulfate 90 mcg/actuation HFA aerosol inhaler 2 puff inhalation Q6H PRN (Reason: shortness of breath or wheezing) Qty: 8.5 0RF pantoprazole [Protonix] 40 mg Tablet,Delayed Release (Dr/Ec) 40 mg PO DAILY Trulicity 3 mg/0.5 mL Pen Injector 3 mg SUBCUT QWEEK furosemide 80 mg tablet 80 mg PO BID Rx Instructions: 80 mg orally daily, may need to take twice a day as needed for sudden weight gain , edema or SOB.; rosuvastatin 40 mg tablet 40 mg PO QHS Qty: 90 3RF nitroglycerin 0.4 mg tablet, sublingual 0.4 mg SL Q5M PRN (Reason: Chest Pain) Qty: 25 3RF Primary Care Provider: Tomás Patino Referrals: Del Ayala MD [Med Staff - Active Staff] - As soon as possible (call for appt) Tomás Patino MD [Primary Care Provider] - Activity Restrictions/Additional Instructions: For worsening shortness of breath, use your albuterol nebulizer machine. Disposition Disposition: Home, Self Care
[2022-05-23 11:32] LABS: Absolute Lymphocyte Count 0.82 X10^3/uL (0.83-4.51); Absolute Neutrophil Count 3.8 X10^3/uL (2.0-7.7); Basophil# 0.05 X10^3/uL; Basophil% 0.9 % (0-1); Eosinophils% 3.7 % (0-5); Hemoglobin 11.4 g/dL (13.0-16.5); Lymphocyte # 0.82 X10^3/ul (0.83-4.51); Lymphocyte % 15.2 % (19-41); Mean Corp Hgb Conc 29.2 g/dL (32-36); Mean Corpuscular Hgb 24.1 pg (27.0-32.0); Mean Corpuscular Volume 82.5 fL (80-94); Mean Platelet Vol. 10.1 fl (6.2-12.0); Monocyte# 0.46 X10^3/uL; Monocyte% 8.6 % (0-10); NRBC Flagged by Analyzer 0 % (0-5); Neutrophil # 3.82 X10^3/uL (2.7-7.7); Platelet Count 167 K/mm3 (150-450); RBC Distribution Width CV 19.9 % (11.6-14.6); Red Blood Count 4.73 M/mm3 (4.6-6.2); White Blood Count 5.4 K/mm3 (4.4-11.0)
[2022-05-23] MEDS: Furosemide 100 MG/10 ML Vial 80 MG IV (11:33)
--- NOTE | 2022-05-23 11:35 | RAD_ITS ---
EXAM: XR CHEST, 1 VIEW CLINICAL INDICATION: sob TECHNIQUE: Frontal view of the chest. This report was created using [email or web address] report generation technology. COMPARISON: 04/09/2022. FINDINGS: LUNGS AND PLEURAL SPACES: The lungs are clear. No pneumothorax. No effusion. HEART: Unremarkable. Normal cardiac size. MEDIASTINUM: Central airways and mediastinal contour are unremarkable. BONES/JOINTS: Unremarkable. SOFT TISSUES: Unremarkable. VASCULATURE: Mild atherosclerotic calcification of the left aortic knob is unchanged. TUBES, LINES AND DEVICES: Single-chamber pacing lead tip remains in the right ventricle. UPPER ABDOMEN: Mild increase elevation of right hemidiaphragm suspicious for right phrenic nerve paresis. RAD/Chest 1 View (Portable) IMPRESSION: 1. No acute findings in the chest. 2. Mild increase elevation of the right hemidiaphragm is suspicious for right phrenic nerve paresis. 3. No significant interval change when compared to 04/09/2022. Electronically Signed: Kade Chauhan MD at 11:50 EST ,
[2022-05-23 11:48] LABS: BNP,B-Type NATRIURETIC PEPTIDE 75.3 pg/mL (0-100)
[2022-05-23 11:50] LABS: Anion Gap 7 (5-15); BUN 30 mg/dL (7-18); BUN/Creat Ratio 21.1 RATIO (10-20); Calcium,Total 8.9 mg/dL (8.5-10.1); Chloride 103 mmol/L (98-107); Creatinine, Serum 1.42 mg/dL (0.70-1.30); EST Glomerular Filtration Rate 51 mL/min (>60); Est Glom Filt Rate - Afr Amer 62 mL/min (>60); Glucose 217 mg/dL (74-106); Potassium 3.7 mmol/L (3.5-5.1); Sodium Level 139 mmol/L (136-145); Troponin-I HS 40 pg/mL (3.0-78.0)
[2022-05-23] MEDS: Ipratropium/Albuterol Sulfate 3 ML AMPUL.NEB INHALATION (13:11)
== END 2022-05-23 15:03 | disposition home or self-care (01) ==
PROVIDERS: Emergency Provider Emergency Medicine; PCP Family Medicine; Visit Provider Emergency Medicine
DX: R60.0 Localized edema (principal); E11.51 Type 2 diabetes mellitus with diabetic peripheral angiopathy without gangrene; I11.0 Hypertensive heart disease with heart failure; I50.22 Chronic systolic (congestive) heart failure; E66.01 Morbid (severe) obesity due to excess calories; Z79.4 Long term (current) use of insulin; R06.00 Dyspnea, unspecified; E78.5 Hyperlipidemia, unspecified; I25.5 Ischemic cardiomyopathy; Z79.899 Other long term (current) drug therapy; Z86.718 Personal history of other venous thrombosis and embolism; Z87.891 Personal history of nicotine dependence; I25.10 Atherosclerotic heart disease of native coronary artery without angina pectoris; Z79.01 Long term (current) use of anticoagulants; Z95.810 Presence of automatic (implantable) cardiac defibrillator
CPT/HCPCS: 71045; 80048; 83880; 84484; 85025; 93005; 94640; 96374; 99284; A4216; J1940

== ENCOUNTER → 2022-07-17 | Outpatient (CLI) | payer MEDICARE, OTHER, SELFPAY ==
[2017-11-06 10:25] VITALS: BMI 37.2
[2022-07-17 16:29] LABS: Absolute Lymphocyte Count 0.96 X10^3/uL (0.83-4.51); Absolute Neutrophil Count 3.7 X10^3/uL (2.0-7.7); Basophil# 0.06 X10^3/uL; Basophil% 1.1 % (0-1); Eosinophil# 0.21 X10^3/uL; Eosinophils% 3.9 % (0-5); Hematocrit 39.4 % (40-54); Hemoglobin 11.5 g/dL (13.0-16.5); Lymphocyte # 0.96 X10^3/ul (0.83-4.51); Lymphocyte % 17.7 % (19-41); Mean Corp Hgb Conc 29.2 g/dL (32-36); Mean Corpuscular Hgb 23.3 pg (27.0-32.0); Mean Corpuscular Volume 79.8 fL (80-94); Mean Platelet Vol. 9.6 fl (6.2-12.0); Monocyte# 0.53 X10^3/uL; Monocyte% 9.8 % (0-10); NRBC Flagged by Analyzer 0 % (0-5); Neutrophil # 3.66 X10^3/uL (2.7-7.7); Neutrophil % 67.3 % (47-70); Platelet Count 144 K/mm3 (150-450); RBC Distribution Width CV 16.6 % (11.6-14.6); RBC Distribution Width SD 47.7 fl (35.1-43.9); Red Blood Count 4.94 M/mm3 (4.6-6.2); White Blood Count 5.4 K/mm3 (4.4-11.0)
[2022-07-17 16:37] LABS: International Normalized Ratio 2.2; Prothrombin Time (Protime)PT. 24.1 SECONDS (11.7-14.9)
[2022-07-17 17:09] LABS: Anion Gap 4 (5-15); BUN 21 mg/dL (7-18); BUN/Creat Ratio 14.4 RATIO (10-20); Calcium,Total 8.4 mg/dL (8.5-10.1); Chloride 103 mmol/L (98-107); Creatinine, Serum 1.46 mg/dL (0.70-1.30); EST Glomerular Filtration Rate 50 mL/min (>60); Est Glom Filt Rate - Afr Amer 60 mL/min (>60); Glucose 177 mg/dL (74-106); Potassium 2.8 mmol/L (3.5-5.1); Sodium Level 139 mmol/L (136-145)
== END | disposition home or self-care (01) ==
LOC: LAB 15:51
PROVIDERS: PCP Family Medicine; Visit Provider Physician Assistant Medical
DX: I50.20 Unspecified systolic (congestive) heart failure (principal); I25.119 Atherosclerotic heart disease of native coronary artery with unspecified angina pectoris; E78.5 Hyperlipidemia, unspecified
CPT/HCPCS: 36415; 80048; 85025; 85610; 85730

== ENCOUNTER 2022-08-06 10:27 | Day surgery (SDC) | payer MEDICARE, OTHER, SELFPAY ==
[2017-11-06 10:25] VITALS: BMI 37.2
[2022-07-28 15:16] LABS: Anion Gap 4 (5-15); BUN 13 mg/dL (7-18); BUN/Creat Ratio 12.4 RATIO (10-20); Calcium,Total 8.9 mg/dL (8.5-10.1); Chloride 108 mmol/L (98-107); Creatinine, Serum 1.05 mg/dL (0.70-1.30); EST Glomerular Filtration Rate 73 mL/min (>60); Est Glom Filt Rate - Afr Amer 88 mL/min (>60); Glucose 93 mg/dL (74-106); Potassium 3.9 mmol/L (3.5-5.1); Sodium Level 141 mmol/L (136-145)
[2022-08-05 07:49] VITALS: BMI 44.7
[2022-08-06 10:41] LABS: INR Fingerstick 1.4; Prothrombin Time Fingerstick 15.6 SEC (11.7-14.9)
--- NOTE | 2022-08-06 12:48 | CL.D_ITS ---
Patient Name: Tim LONG Study Date: 08/06/2022 Performing: Johan Perry MD Ht: 65 inches 165.1 cm : 1945 Wt: 269.01 lbs 122.02 kg Age: 76 Gender: male BSA: 2.24 PROCEDURE(S) PERFORMED [id number])LHC/COR/LV CLINICAL PROFILE AND INDICATIONS Indications: Worsening Angina Heart Failure: NYHA Class: 2, Newly Diagnosed: No, Heart Failure Type: Systolic Stress/Imaging Date: 11/29/22 CAD Presentations: Other: SOB CONCLUSIONS Coronary disease with occluded right coronary artery with [id number] collaterals moderate circumflex disease and moderate LAD disease. In comparison to previous cardiac catheterizations above is unchanged. FFR was performed on the above vessels were noted to be insignificant with identical anatomy. RECOMMENDATIONS Medical therapy DESCRIPTION OF PROCEDURE The patient arrived to the procedure lab. The risks and benefits of the procedure as well as a full description of our services here and current unavailability of surgical backup were fully explained to the patient and/or their significant other prior to the catheterization. The Timeout was completed, verifying the correct patient and procedure. The patient's procedural site was prepped and draped in the usual fashion. Local anesthetic was given subcutaneously to right radial region with Lidocaine 2%. Using a modified Seldinger technique, arterial access was obtained via the right radial artery, a 6Fr sheath was inserted. Left Coronary Artery selective angiography was performed in multiple views using a 5 Fr. 4.0 Pollock catheter. Right Coronary Artery selective angiography was then performed in multiple views using a 5 Fr. 4.0 Pollock catheter. Left Ventriculography was performed in MENDEZ projection using a 5 Fr. Pigtail catheter. LV to AO pullback pressures were then recorded.The arterial sheath was pulled and a TR Band was applied for hemostasis w/ 15ml air CORONARY ANGIOGRAPHY DOMINANCE: Right Dominant LEFT HEART ASSESSMENT Left Ventricular Ejection Fraction: by Echo 35 % Inferior Mid Akinesis. Global Hypokinesis - Moderate LEFT MAIN: Angiographically normal LEFT ANTERIOR DESCENDING ARTERY: Previously placed stent which is patent in the midsegment of first diagonal branch with 70% ostial stenosis and a septal ota with 60% ostial stenosis and moderate disease noted in the mid left anterior descending artery coursing towards the apex of the ventricle. Left to right collaterals filling the right coronary artery are noted. CIRCUMFLEX ARTERY: Proximal circumflex artery with mild to moderate disease in the first obtuse marginal branch with moderate disease. [id number] collaterals noted RIGHT CORONARY ARTERY: PROX RCA: is occluded COLLATERAL FLOW: Collateral flow from Left to Right AORTIC ROOT: Dilated COMPLICATIONS No Complications PROCEDURE MEDICATIONS Versed 1 mg IV Fentanyl 25 mcg IV Oxygen: 2 L/min via nasal cannula Aspirin (325mg) 1 Tabs PO @ 08/06/2022 11:45:50 Heparin given IA 08/06/2022 12:23:45 Verapamil 2.5mg, Ntg 100mcgs, 3000 units of Heparin given IA 08/06/2022 12:23:45 SUMMARY OF HEMODYNAMIC DATA Time AIR REST ECG 10:57:47 Art 154/74 (101) 12:01:03 AO 152/76 (111) SA 12:24:38 LV 108/21, 23 12:31:45 LV 110/19, 24 12:31:53 LV 125/20, 29 12:32:36 LV 141/19, 31 12:32:44 LVp 139/17, 30 12:32:48 AOp 145/81 (107) 12:32:55 Signed By Johan Perry MD On 08/06/2022 12:48:13 Johan Perry MD
== END 2022-08-06 14:45 | disposition home or self-care (01) ==
LOC: CLSP 10:27
PROVIDERS: Physician Assistant Medical; PCP Family Medicine; Referring Provider Internal Medicine Cardiovascular Disease; Visit Provider Internal Medicine Cardiovascular Disease
DX: I25.119 Atherosclerotic heart disease of native coronary artery with unspecified angina pectoris (principal); I50.20 Unspecified systolic (congestive) heart failure; I48.92 Unspecified atrial flutter; Z95.5 Presence of coronary angioplasty implant and graft; I25.2 Old myocardial infarction; E78.5 Hyperlipidemia, unspecified; I25.5 Ischemic cardiomyopathy; Z95.810 Presence of automatic (implantable) cardiac defibrillator; Z82.49 Family history of ischemic heart disease and other diseases of the circulatory system; Z87.891 Personal history of nicotine dependence
CPT/HCPCS: 36415; 36416; 80048; 85610; 93458; 99152; 99153; J7040; Q9967; C1769; C1894

== ENCOUNTER → 2022-09-03 23:59 | Outpatient (RCR) | payer MEDICARE, OTHER, SELFPAY ==
[2017-11-06 10:25] VITALS: BMI 37.2
[2019-12-07 13:59] VITALS: BMI 41.1
[2019-12-09 15:43] LABS: Hematocrit 38.6 % (40-54); Hemoglobin 12.5 g/dL (13.0-16.5); Mean Corp Hgb Conc 32.4 g/dL (32-36); Mean Corpuscular Hgb 29.8 pg (27.0-32.0); Mean Corpuscular Volume 91.9 fL (80-94); Mean Platelet Vol. 10.4 fl (6.2-12.0); Platelet Count 168 K/mm3 (150-450); RBC Distribution Width CV 13.8 % (11.6-14.6); RBC Distribution Width SD 46.6 fl (35.1-43.9); White Blood Count 5.7 K/mm3 (4.4-11.0)
[2019-12-09 16:26] LABS: Anion Gap 6 (5-15); BUN 32 mg/dL (7-18); Calcium,Total 8.7 mg/dL (8.5-10.1); Chloride 98 mmol/L (98-107); Creatinine, Serum 1.68 mg/dL (0.70-1.30); EST Glomerular Filtration Rate 43 mL/min (>60); Est Glom Filt Rate - Afr Amer 52 mL/min (>60); Glucose 209 mg/dL (74-106); Potassium 4.3 mmol/L (3.5-5.1); Sodium Level 136 mmol/L (136-145)
== END ==
LOC: HH 12-09 14:58
PROVIDERS: PCP Family Medicine; Referring Provider Family Medicine; Visit Provider Family Medicine
DX: E11.51 Type 2 diabetes mellitus with diabetic peripheral angiopathy without gangrene (principal); I87.2 Venous insufficiency (chronic) (peripheral)
CPT/HCPCS: 80048; 85027

== ENCOUNTER 2022-10-08 09:09 | Emergency (ER) | payer MEDICARE, OTHER, SELFPAY ==
[2017-11-06 10:25] VITALS: BMI 37.2
[2022-10-08 09:11] VITALS: BP 147/82; PULSE 101; RESP 18; TEMP 36.4; O2SAT 100; BMI 40.1
--- NOTE | 2022-10-08 09:20 | EKG12_ITS ---
Test Reason : GI COMPLAINT Blood Pressure : / mmHG Vent. Rate : 098 BPM Atrial Rate : 098 BPM P-R Int : 196 ms QRS Dur : 150 ms QT Int : 344 ms P-R-T Axes : 048 -10 100 degrees QTc Int : 439 ms Normal sinus rhythm Right bundle branch block Inferior infarct , age undetermined Anterolateral infarct , age undetermined Abnormal ECG Confirmed by CA SIMMONS, ROBERT ([id number]), editor producer SABINE ALVAREZ ([id number]) on 10/09/2022 2:20:43 PM Referred By: Confirmed By:ROBERT PENALOZA MD
[2022-10-08 09:47] LABS: Absolute Lymphocyte Count 1.14 X10^3/uL (0.83-4.51); Absolute Neutrophil Count 6.1 X10^3/uL (2.0-7.7); Basophil# 0.05 X10^3/uL; Basophil% 0.6 % (0-1); Eosinophil# 0.16 X10^3/uL; Hemoglobin 9.4 g/dL (13.0-16.5); Lymphocyte # 1.14 X10^3/ul (0.83-4.51); Lymphocyte % 14.1 % (19-41); Mean Corp Hgb Conc 31.3 g/dL (32-36); Mean Corpuscular Volume 79.8 fL (80-94); Mean Platelet Vol. 9.8 fl (6.2-12.0); Monocyte# 0.64 X10^3/uL; Monocyte% 7.9 % (0-10); NRBC Flagged by Analyzer 0 % (0-5); Neutrophil # 6.07 X10^3/uL (2.7-7.7); Neutrophil % 74.8 % (47-70); Platelet Count 186 K/mm3 (150-450); RBC Distribution Width CV 17.6 % (11.6-14.6); RBC Distribution Width SD 50.2 fl (35.1-43.9); Red Blood Count 3.76 M/mm3 (4.6-6.2); White Blood Count 8.1 K/mm3 (4.4-11.0)
[2022-10-08 09:55] LABS: Bacteria 0 SEEN /hpf (None Seen); Mucous, Urine 0 SEEN /hpf (<or=2+); Squamous Epithelial Cells - UA 0 SEEN /hpf (0-5)
[2022-10-08] MEDS: Lactated Ringers 1,000 ML 999 ML IV (10:06)
[2022-10-08] MEDS: Ondansetron 4 MG/2 ML Vial IV (10:06)
[2022-10-08] MEDS: Famotidine 200 MG/20 ML MDV 20 MG in 0.9% Normal Saline (Pres. free 8 ML 300 MG IV (10:06)
[2022-10-08 10:07] LABS: ALB/GLOB Ratio 0.9 RATIO (0.9-2.4); AST(SGOT) 20 U/L (15-37); Alanine Aminotransfer ALT/SGPT 19 U/L (16-61); Alkaline Phosphatase 78 U/L (45-117); Anion Gap 10 (5-15); BUN 44 mg/dL (7-18); BUN/Creat Ratio 36.1 RATIO (10-20); Calcium,Total 8.4 mg/dL (8.5-10.1); Chloride 105 mmol/L (98-107); Creatinine, Serum 1.22 mg/dL (0.70-1.30); EST Glomerular Filtration Rate 61 mL/min (>60); Est Glom Filt Rate - Afr Amer 74 mL/min (>60); Estimated Creatinine Clearance 49.84 ml/min; Globulin 3.3 g/dL (2.2-4.2); Glucose 229 mg/dL (74-106); Lipase 31 U/L (13-75); Potassium 3.7 mmol/L (3.5-5.1); Protein, Total 6.3 g/dL (6.4-8.2); Sodium Level 139 mmol/L (136-145); Troponin-I HS 71 pg/mL (3.0-78.0)
[2022-10-08 10:20] LABS: Color, Urine Yellow (Yellow); Glucose, Dipstick 1000 mg/dl (Normal); Ketone-Dipstick 15 mg/dl (Negative); Leukocyte Esterase-Dipstick 25 /ul (Negative); Nitrite-Dipstick Negative (Negative); Occult Blood-Urine 10 /ul (Negative); Protein-Dipstick 15 mg/dl (Negative); Urine Bilirubin Dipstick Negative (Negative); Urine Clarity Sl. Cloudy (Clear); Urine Urobilinogen Normal (Normal)
[2022-10-08 10:47] LABS: Red Blood Cells-Urine 0-5 SEEN /hpf (0-5); White Blood Cells 0-5 SEEN /hpf (0-5)
[2022-10-08 10:48] LABS: International Normalized Ratio 1.9; Prothrombin Time (Protime)PT. 21.7 SECONDS (11.7-14.9)
[2022-10-08 10:56] LABS: Lactic Acid 3.3 mmol/L (0.4-1.9)
[2022-10-08 13:10] VITALS: BP 145/78; PULSE 78; RESP 18; O2SAT 98
--- NOTE | 2022-10-08 13:17 | EX.ED.DYSGE1 ---
HPI History of Present Illness Chief Complaint: GI Bleed Narrative Narrative: Patient is a very pleasant 76-year-old male who is presenting to the ER with chief complaint of melena last night and this morning. Patient's also had increasing urination last night and this morning. Patient is diabetic. Patient has no history of acid reflux, ulcers. Patient states that he has some type of GI bleed approximately 5-8 years ago that resolved, patient did not have a colonoscopy at that time. Patient did have a colonoscopy 3 years ago approximately that showed no acute findings. Patient has never had a EGD. Patient has nausea with no vomiting. Patient has mild lightheadedness, no headache. No chest pain or shortness of breath. Patient has had no recent Pepto-Bismol, black licorice, and has not been increasing his meat. Patient drinks alcohol rarely. Non-smoker. Patient is not taking a lot of anti-inflammatories recently. Patient lives at home by himself. 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 HFrEF (heart failure with reduced ejection fraction) History of deep vein thrombosis (DVT) of lower extremity History of non-ST elevation myocardial infarction (NSTEMI) (11/05/16) Hyperlipidemia Ischemic cardiomyopathy Localized edema Morbid obesity with BMI of 40.0-44.9, adult Nondisp fracture of fifth left metatarsal bone with routine healing Nonrheumatic tricuspid (valve) insufficiency Nonsustained ventricular tachycardia Normocytic anemia 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 Other specified peripheral vascular diseases Paroxysmal atrial flutter Peripheral vascular occlusive disease Type 2 diabetes mellitus Ulcer of left lower extremity with fat layer exposed Ulcer of right lower extremity Ulcer of right lower extremity with fat layer exposed Ulcer of right lower extremity with fat layer exposed Uncontrolled type 2 diabetes mellitus Walking difficulty due to ankle and foot Xerosis cutis Home Medications latanoprost 0.005 % eye drops 1 drp EACH EYE TID glaucoma 11/17/18 [History Last Taken 03/16/22] warfarin 3 mg tablet 3 mg PO QMWF blood thinner 09/11/21 [History Last Taken 03/14/22] warfarin 6 mg tablet 6 mg PO SUTUTHSA blood thinner 09/11/21 [History Last Taken 03/16/22] ropinirole 0.5 mg tablet 1 mg PO QHS legs 12/10/21 [History Last Taken 03/15/22] ondansetron 4 mg disintegrating tablet 4 mg PO Q6H PRN Nausea 03/16/22 [History Last Taken Unknown] albuterol sulfate 2.5 mg/3 mL (0.083 %) solution for nebulization 2.5 mg (3 mL) inhalation Q4H.RT PRN WHEEZING 30 days #360 mL 04/14/22 [Rx Last Taken Unknown] gabapentin 600 mg tablet 600 mg PO TID 30 days #90 tabs 04/14/22 [Rx Last Taken Unknown] insulin glargine-yfgn 100 unit/mL (3 mL) subcutaneous pen 28 unit (0.28 mL) subcut BID 30 days #18 mL 04/14/22 [Rx Last Taken Unknown] insulin lispro 100 unit/mL subcutaneous pen (Humalog KwikPen (U-100) Insulin) 18 unit (0.18 mL) subcut 0800,1200,1700 30 days #18 mL 04/14/22 [Rx Last Taken Unknown] albuterol sulfate 90 mcg/actuation aerosol inhaler 2 puff inhalation Q6H PRN shortness of breath or wheezing #8.5 grams 04/16/22 [Rx Last Taken Unknown] dapagliflozin propanediol 10 mg tablet (Farxiga) 10 mg PO DAILY 04/18/22 [History Last Taken Unknown] nitroglycerin 0.4 mg sublingual tablet 0.4 mg sublingual Q5M PRN Chest Pain #25 tabs 04/21/22 [Rx Last Taken Unknown] dulaglutide 3 mg/0.5 mL subcutaneous pen injector (Trulicity) 3 mg subcut QWEEK 05/20/22 [History Last Taken Unknown] pantoprazole 40 mg tablet,delayed release (Protonix) 40 mg PO DAILY #90 tabs 07/02/22 [Rx Last Taken Unknown] furosemide 40 mg tablet 40 mg PO DAILY 07/18/22 [History Last Taken Unknown] potassium chloride 20 mEq tablet,extended release(part/cryst) (Klor-Con M) 20 meq PO DAILY #30 tabs 07/18/22 [Rx Last Taken Unknown] carvedilol 6.25 mg tablet 6.25 mg PO BID This is a dose increase #180 tabs 08/07/22 [Rx Last Taken Unknown] isosorbide mononitrate 60 mg tablet,extended release 24 hr 60 mg PO DAILY #90 tabs 08/07/22 [Rx Last Taken Unknown] rosuvastatin 40 mg tablet 40 mg PO QHS Cholesterol #90 tabs 08/19/22 [Rx Last Taken Unknown] famotidine 20 mg tablet 20 mg PO BID #28 TABLETS 10/08/22 [Rx Last Taken Unknown] ondansetron 4 mg disintegrating tablet 4 mg PO Q8H PRN PRN Nausea #10 tabs 10/08/22 [Rx Last Taken Unknown] Allergy/AdvReac Type Severity Reaction Status Date / Time ceftriaxone sodium Allergy Rash Verified 10/08/22 09:13 [From Rocephin] milk AdvReac Diarrhea Verified 10/08/22 09:13 morphine AdvReac hallucinati Verified 10/08/22 09:13 ons Family History Father , Age 78 Prostate cancer Mother , Age 80 CVA (cerebral vascular accident) Sister Congestive heart failure Diabetes Hypertension Hyperlipidemia Atrial fibrillation CAD (coronary artery disease) Cardiac defibrillator in situ Sister Breast cancer Sister Breast cancer Brother CAD (coronary artery disease) Myocardial infarction Diabetes Brother Diabetes Brother , Age 74 COPD (chronic obstructive pulmonary disease) Sister Alive and well Surgical History H/O colonoscopy with polypectomy (11/2017) History of angioplasty of peripheral vessel History of coronary artery stent placement (12/15/14) History of detached retina repair History of electrophysiologic study (11/23/02) History of implantable cardiac defibrillator (ICD) (11/19/17) History of left heart catheterization (12/06/18) History of radiofrequency ablation procedure for cardiac arrhythmia (07/01/11) ICD (implantable cardioverter-defibrillator) in place Social History household members: spouse housing: house current occupational status: retired pets and animals: Yes (2 dogs, 2 cats) Smoking Status: Former smoker pack-years: 20 how long ago did patient quit smokin years ago alcohol intake: never caffeine: Yes Type: coffee Number of servings: 1 ROS ROS ED ROS Narrative REVIEW OF SYSTEMS: Unless otherwise stated in this report the patient's positive and negative responses for review of systems for constitutional, eyes, ENT, cardiovascular, respiratory, gastrointestinal, neurological, , musculoskeletal, and integument systems and related systems to the presenting problem are either stated in the history of present illness or were not pertinent or were negative for the symptoms and/or complaints related to the presenting medical problem. EXAM Physical Exam Narrative Exam Narrative: Vital signs reviewed and patient is not hypoxic. General: The patient appears well and in no apparent distress. Patient is resting comfortably on cart. Not toxic, lethargic, or listless. Skin: Warm, dry, no pallor noted. There is no rash noted. Head: Normocephalic, atraumatic Eye: Normal conjunctiva, no drainage, EOMI. PERRL. Ears, Nose, Mouth, and Throat: oral mucosa is moist. Nares patent. Mouth without vesicles. Cardiovascular: Regular Rate and Rhythm, no murmurs, gallops, or rubs Respiratory: Patient is in no distress, no accessory muscle use, lungs are clear to auscultation, no wheezing, rales or rhonchi Back: non-tender, no CVA tenderness bilaterally to percussion. NO CTLS midline or paraspinal tenderness to palpation. GI: Soft, obese, no tenderness to palpation, no masses appreciated. No rebound, guarding, or rigidity noted. Musculoskeletal: The patient has full range of motion of all extremities and joints with no difficulty. Patient has no motor, no sensory deficits. Neurological: A&O x4, normal speech, no focal neurological deficits. Psychiatric: Cooperative Const Vital Signs: 10/08/22 09:11 10/08/22 13:10 Temperature 97.5 F L Temperature Source Temporal Pulse Rate 101 H 78 Respiratory Rate 18 18 Blood Pressure 147/82 H 145/78 H Blood Pressure Mean 103 100 Pulse Ox 100 98 Oxygen Delivery Method Room Air MDM MDM MDM Narrative Medical decision making narrative: There is delay in patient's care initially secondary to critical patients in the ER. Patient was very understanding. Patient states he has had black stool last evening and today. Patient does have a history of GI bleed. Patient's lab work shows no significant findings, INR was 1.9. Patient's BUN was slightly elevated at 44, creatinine 1.22. However patient does have chronic kidney disease. We discussed performing rectal exam, patient declined because is not going to change patient's care. Patient will be started on antacid medication daily. Patient will continue taking Coumadin. Patient did have a colonoscopy 3 years ago, he cannot remember the surgeon that performed that. Patient has never had EGD. Patient will follow back up with his PCP and follow-up with you we had a colonoscopy with or also he could call Dr. Friend who he has heard of. Patient understands why to return to the ER if he is extremely short of breath, very pale, lightheaded, dizzy, or any other acute complaints. Patient's hemoglobin was 9.4. Patient understands a follow-up with outpatient testing. No questions at discharge. Patient was very thankful for help. Patient also states he has been having urinary frequency last night and today, no signs of UTI, he does have leuk esterase noted but no other acute findings for UTI. Urine culture is pending Lab Data Attestation: I reviewed the patient's lab results. Labs: Laboratory Results - last 24 hr 10/08/22 10/08/22 10/08/22 09:25 09:45 09:50 WBC 8.1 RBC 3.76 L Hgb 9.4 L Hct 30.0 L MCV 79.8 L MCH 25.0 L MCHC 31.3 L RDW Std Deviation 50.2 H RDW Coeff of Galo 17.6 H Plt Count 186 MPV 9.8 Immature Gran % (Auto) 0.600 Neut % (Auto) 74.8 H Lymph % (Auto) 14.1 L Waller % (Auto) 7.9 Eos % (Auto) 2.0 Baso % (Auto) 0.6 Absolute Neuts (auto) 6.1 Absolute Lymphs (auto) 1.14 Nucleated RBC % 0 PT 21.7 H INR 1.9 Sodium 139 Potassium 3.7 Chloride 105 Carbon Dioxide 24.0 Anion Gap 10 BUN 44 H Creatinine 1.22 Estim Creat Clear Calc 49.84 Est GFR (MDRD) Af Amer 74 Est GFR (MDRD) Non-Af 61 BUN/Creatinine Ratio 36.1 H Glucose 229 H Lactic Acid Calcium 8.4 L Total Bilirubin 0.70 AST 20 ALT 19 Alkaline Phosphatase 78 Troponin I High Sens 71 Total Protein 6.3 L Albumin 3.0 L Globulin 3.3 Albumin/Globulin Ratio 0.9 Lipase 31 Urine Color Yellow Urine Clarity Sl. Cloudy Urine pH 6.0 Ur Specific [place] 1.010 Urine Protein 15 H Urine Glucose (UA) 1000 H Urine Ketones 15 H Urine Occult Blood 10 H Urine Nitrite Negative Urine Bilirubin Negative Urine Urobilinogen Normal Ur Leukocyte Esterase 25 H Urine RBC 0-5 SEEN Urine WBC 0-5 SEEN Ur Squamous Epith Cells 0 SEEN Urine Bacteria 0 SEEN Urine Mucus 0 SEEN 10/08/22 10:06 WBC RBC Hgb Hct MCV MCH MCHC RDW Std Deviation RDW Coeff of Galo Plt Count MPV Immature Gran % (Auto) Neut % (Auto) Lymph % (Auto) [place] % (Auto) Eos % (Auto) Baso % (Auto) Absolute Neuts (auto) Absolute Lymphs (auto) Nucleated RBC % PT INR Sodium Potassium Chloride Carbon Dioxide Anion Gap BUN Creatinine Estim Creat Clear Calc Est GFR (MDRD) Af Amer Est GFR (MDRD) Non-Af BUN/Creatinine Ratio Glucose Lactic Acid 3.3 H* Calcium Total Bilirubin AST ALT Alkaline Phosphatase Troponin I High Sens Total Protein Albumin Globulin Albumin/Globulin Ratio Lipase Urine Color Urine Clarity Urine pH Ur Specific [place] Urine Protein Urine Glucose (UA) Urine Ketones Urine Occult Blood Urine Nitrite Urine Bilirubin Urine Urobilinogen Ur Leukocyte Esterase Urine RBC Urine WBC Ur Squamous Epith Cells Urine Bacteria Urine Mucus Discharge Plan Triage Chief Complaint: GI Bleed ED Provider: Alex Corbin Dx/Rx/DC Orders Clinical Impression: Melena, Nausea Instructions: Anatomy of the Digestive System, ED Upper GI Bleeding (Stable), ED Vomiting (Adult) Prescriptions: New famotidine [famotidine] 20 mg tablet 20 mg PO BID Qty: 28 0RF ondansetron [ondansetron] 4 mg tablet,disintegrating 4 mg PO Q8H PRN PRN (Reason: Nausea) Qty: 10 0RF No Action warfarin 3 mg tablet 3 mg PO QMWF Rx Instructions: Managed by PCP warfarin 6 mg tablet 6 mg PO SUTUTHSA Rx Instructions: Managed by PCP Farxiga 10 mg tablet 10 mg PO DAILY potassium chloride [Klor-Con M20] 20 mEq tablet,ER particles/crystals 20 meq PO DAILY Qty: 30 0RF furosemide 40 mg tablet 40 mg PO DAILY latanoprost 2.5 ML drops 1 drp EACH EYE TID ropinirole 0.5 mg tablet 1 mg PO QHS ondansetron 4 mg Tablet,Disintegrating 4 mg PO Q6H PRN (Reason: Nausea) gabapentin 600 mg Tablet 600 mg PO TID 30 Days Qty: 90 0RF albuterol sulfate 2.5 mg /3 mL (0.083 %) Solution For Nebulization 2.5 mg inhalation Q4H.RT PRN (Reason: WHEEZING) 30 Days Qty: 360 0RF insulin lispro [Humalog KwikPen Insulin] 100 unit/mL Insulin Pen 18 unit subcut 0800,1200,1700 30 Days Qty: 18 0RF insulin glargine-yfgn 100 unit/mL (3 mL) Insulin Pen 28 unit subcut BID 30 Days Qty: 18 0RF albuterol sulfate 90 mcg/actuation HFA aerosol inhaler 2 puff inhalation Q6H PRN (Reason: shortness of breath or wheezing) Qty: 8.5 0RF Trulicity 3 mg/0.5 mL Pen Injector 3 mg SUBCUT QWEEK nitroglycerin 0.4 mg tablet, sublingual 0.4 mg SL Q5M PRN (Reason: Chest Pain) Qty: 25 3RF pantoprazole [Protonix] 40 mg tablet,delayed release (DR/EC) 40 mg PO DAILY Qty: 90 3RF carvedilol 6.25 mg tablet 6.25 mg PO BID Qty: 180 3RF Rx Instructions: must administer with a meal/food isosorbide mononitrate 60 mg tablet extended release 24 hr 60 mg PO DAILY Qty: 90 3RF rosuvastatin 40 mg tablet 40 mg PO QHS Qty: 90 3RF Primary Care Provider: Tomás Patino Referrals: Tomás Patino MD [Primary Care Provider] - Activity Restrictions/Additional Instructions: Start taking antacid medication daily. Nausea medication was prescribed prophylactically. Follow-up with Dr. Jakcson or the physician that has performed her colonoscopy in the past. Increase fluids. If you are extremely pale, extremely lightheaded, dizzy, passing out, or any other acute concerns, return to the ER for Disposition Disposition: Home, Self Care Discharge Date/Time: 10/08/22 13:38
[2022-10-08 14:11] LABS: Reflex Lactate? Y
== END 2022-10-08 13:38 | disposition home or self-care (01) ==
PROVIDERS: Emergency Provider Emergency Medicine; PCP Family Medicine; Visit Provider Emergency Medicine
DX: K92.1 Melena (principal); E11.51 Type 2 diabetes mellitus with diabetic peripheral angiopathy without gangrene; I13.0 Hypertensive heart and chronic kidney disease with heart failure and stage 1 through stage 4 chronic kidney disease, or unspecified chronic kidney disease; I50.22 Chronic systolic (congestive) heart failure; E11.22 Type 2 diabetes mellitus with diabetic chronic kidney disease; Z79.4 Long term (current) use of insulin; I25.10 Atherosclerotic heart disease of native coronary artery without angina pectoris; E78.5 Hyperlipidemia, unspecified; N18.9 Chronic kidney disease, unspecified; Z87.891 Personal history of nicotine dependence; Z79.01 Long term (current) use of anticoagulants; I25.2 Old myocardial infarction; Z95.5 Presence of coronary angioplasty implant and graft; Z95.810 Presence of automatic (implantable) cardiac defibrillator; Z86.718 Personal history of other venous thrombosis and embolism; Z79.899 Other long term (current) drug therapy; Z79.85 Long-term (current) use of injectable non-insulin antidiabetic drugs; K21.9 Gastro-esophageal reflux disease without esophagitis; R11.0 Nausea
CPT/HCPCS: 80053; 81001; 83605; 83690; 84484; 85025; 85610; 93005; 96361; 96365; 96375; 99283; A4216; J2405; J3490

== ENCOUNTER → 2022-10-28 | Outpatient (CLI) | payer MEDICARE, OTHER, SELFPAY ==
[2017-11-06 10:25] VITALS: BMI 37.2
[2022-10-28 12:07] LABS: Anion Gap 5 (5-15); BUN 17 mg/dL (7-18); BUN/Creat Ratio 13.9 RATIO (10-20); Chloride 106 mmol/L (98-107); Creatinine, Serum 1.22 mg/dL (0.70-1.30); EST Glomerular Filtration Rate 61 mL/min (>60); Est Glom Filt Rate - Afr Amer 74 mL/min (>60); Glucose 219 mg/dL (74-106); Potassium 3.7 mmol/L (3.5-5.1); Sodium Level 140 mmol/L (136-145)
== END | disposition home or self-care (01) ==
LOC: LAB 11:13
PROVIDERS: PCP Family Medicine; Referring Provider Physician Assistant Medical; Visit Provider Physician Assistant Medical
DX: E87.6 Hypokalemia (principal); R06.00 Dyspnea, unspecified; R63.5 Abnormal weight gain; I10 Essential (primary) hypertension
CPT/HCPCS: 36415; 80048

== ENCOUNTER 2022-11-05 13:00 | Inpatient (IN) | payer MEDICARE, OTHER, SELFPAY ==
[2017-11-06 10:25] VITALS: BMI 37.2
[2022-11-05] VITALS (30 sets, daily range): BP systolic 82–140; BP diastolic 53–78; PULSE 65–83; RESP 16–20; TEMP 36.1–36.9; O2SAT 91–100; BMI 40.5; BMI 41.5
[2022-11-05] MEDS: Lactated Ringers 1,000 ML 15 ML IV (07:02)
--- NOTE | 2022-11-05 07:16 | PCM.HP.BLA ---
History and Physical Date of Admission: 11/05/22 Date of Service: 10/30/22 MR#: [id number] Acct: [id number] Name: Tim LONG Rep #: [id number] : 1945 Provider: Dr. Jewell Faust MD Age/Sex: 77/M Location: [facility] Status: Signed Intake Vital Signs 10/08/2308:11 10/30/2309:04 Height 5 ft 8 in 5 ft 8 in Weight: 265 lb 8 oz BMI 40.4 BP 118/70 Blood Pressure Location Rt brachial Position Sitting Respiration 17 Pulse 87 Pulse Source Monitor Temp 98 F Temp Source Temporal Pulse Oximetry (%) 97 Oxygen Delivery Method room air Intake Visit Reasons: UPPER & LOWER - BLACK STOOLS/BARRETTS Chief Complaint: upper/lower black stools/barrets Is patient in pain?: No Allergies ceftriaxone sodium [From Rocephin] Allergy (Verified 10/30/22 10:06) [place]k Adverse Reaction (Verified 10/30/22 10:06) Diarrheamorphine Adverse Reaction (Verified 10/30/22 10:06) hallucinations Medications latanoprost 0.005 % eye drops 1 drp EACH EYE TID glaucoma 11/17/18 [History Confirmed 10/30/22] ropinirole 0.5 mg tablet 1 mg PO QHS legs 12/10/21 [History Confirmed 10/30/22] ondansetron 4 mg disintegrating tablet 4 mg PO Q6H PRN Nausea 03/16/22 [History Confirmed 10/30/22] albuterol sulfate 2.5 mg/3 mL (0.083 %) solution for nebulization 2.5 mg (3 mL) inhalation Q4H.RT PRN WHEEZING 30 days #360 mL 04/14/22 [Rx Confirmed 10/30/22] gabapentin 600 mg tablet 600 mg PO TID 30 days #90 tabs 04/14/22 [Rx Confirmed 10/30/22] insulin glargine-yfgn 100 unit/mL (3 mL) subcutaneous pen 28 unit (0.28 mL) subcut BID 30 days #18 mL 04/14/22 [Rx Confirmed 10/30/22] albuterol sulfate 90 mcg/actuation aerosol inhaler 2 puff inhalation Q6H PRN shortness of breath or wheezing #8.5 grams 04/16/22 [Rx Confirmed 10/30/22] dapagliflozin propanediol 10 mg tablet (Farxiga) 10 mg PO DAILY 04/18/22 [History Confirmed 10/30/22] nitroglycerin 0.4 mg sublingual tablet 0.4 mg sublingual Q5M PRN Chest Pain #25 tabs 04/21/22 [Rx Confirmed 10/30/22] dulaglutide 3 mg/0.5 mL subcutaneous pen injector (Trulicity) 3 mg subcut QWEEK 05/20/22 [History Confirmed 10/30/22] pantoprazole 40 mg tablet,delayed release (Protonix) 40 mg PO DAILY #90 tabs 07/02/22 [Rx Confirmed 10/30/22] potassium chloride 20 mEq tablet,extended release(part/cryst) (Klor-Con M) 20 meq PO DAILY #30 tabs 07/18/22 [Rx Confirmed 10/30/22] carvedilol 6.25 mg tablet 6.25 mg PO BID This is a dose increase #180 tabs 08/07/22 [Rx Confirmed 10/30/22] isosorbide mononitrate 60 mg tablet,extended release 24 hr 60 mg PO DAILY #90 tabs 08/07/22 [Rx Confirmed 10/30/22] rosuvastatin 40 mg tablet 40 mg PO QHS Cholesterol #90 tabs 08/19/22 [Rx Confirmed 10/30/22] famotidine 20 mg tablet 20 mg PO BID #28 TABLETS 10/08/22 [Rx Confirmed 10/30/22] ondansetron 4 mg disintegrating tablet 4 mg PO Q8H PRN PRN Nausea #10 tabs 10/08/22 [Rx] furosemide 80 mg tablet (Lasix) 80 mg PO DAILY 10/30/22 [History Confirmed 10/30/22] insulin lispro 100 unit/mL subcutaneous pen (Humalog KwikPen (U-100) Insulin) 21 unit subcut TID 10/30/22 [History Confirmed 10/30/22] peg 3350-electrolytes 236 gram-22.74 gram-6.74 gram-5.86 gram solution (Golytely) 240 ml PO Q10M #4,000 mL 10/30/22 [Rx Confirmed 10/30/22] warfarin 6 mg tablet 6 mg PO .every day 10/30/22 [History Confirmed 10/30/22] [facility] Medical History (Updated 10/30/22 @ 10:[address] 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 HFrEF (heart failure with reduced ejection fraction) History of deep vein thrombosis (DVT) of lower extremity History of non-ST elevation myocardial infarction (NSTEMI) (11/05/16) Hyperlipidemia Ischemic cardiomyopathy Localized edema Morbid obesity with BMI of 40.0-44.9, adult Nondisp fracture of fifth left metatarsal bone with routine healing Nonrheumatic tricuspid (valve) insufficiency Nonsustained ventricular tachycardia Normocytic anemia 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 Other specified peripheral vascular diseases Paroxysmal atrial flutter Peripheral vascular occlusive disease Type 2 diabetes mellitus Ulcer of left lower extremity with fat layer exposed Ulcer of right lower extremity Ulcer of right lower extremity with fat layer exposed Ulcer of right lower extremity with fat layer exposed Uncontrolled type 2 diabetes mellitus Walking difficulty due to ankle and foot Xerosis cutis Surgical History H/O colonoscopy with polypectomy (11/2017) History of angioplasty of peripheral vessel History of coronary artery stent placement (12/15/14) History of detached retina repair History of electrophysiologic study (11/23/02) History of implantable cardiac defibrillator (ICD) (11/19/17) History of left heart catheterization (12/06/18) History of radiofrequency ablation procedure for cardiac arrhythmia (07/01/11) ICD (implantable cardioverter-defibrillator) in place Family History Father , Age 78 Prostate cancerMother , Age 80 CVA (cerebral vascular accident)Sister Congestive heart failure Diabetes Hypertension Hyperlipidemia Atrial fibrillation CAD (coronary artery disease) Cardiac defibrillator in situSister Breast cancerSister Breast cancerBrother CAD (coronary artery disease) Myocardial infarction DiabetesBrother DiabetesBrother , Age 74 COPD (chronic obstructive pulmonary disease)Sister Alive and well Social History household members: spouse housing: house current occupational status: retired pets and animals: Yes (2 dogs, 2 cats) Smoking Status: Former smoker pack-years: 20 how long ago did patient quit smokin years ago alcohol intake: never caffeine: Yes Type: coffee Number of servings: 1 HPI HPI HPI: 70-year-old male presents due to melena. Patient states a couple weeks ago he had about 2 days of black formed stool he denies taking any iron supplements or Pepto-Bismol. Patient states for the last couple weeks he has not had any more black stools its been normal formed and ho denies any blood. Patient does have bowel movements daily. Patient's does have history of reflux he is currently on Protonix been on it for years has no symptoms with the medication. Patient is on warfarin history of multiple DVTs in the lower extremities. Patient also had a previous cardiac stent about 8 years ago. Patient does have chronic kidney disease stage III. Patient's last colonoscopy was in [address] Anthony, small polyp removed at that time diverticulosis, nonbleeding internal hemorrhoids. Patient states he also had an EGD but was greater than 10 years ago at [facility]. ROS General General: Yes fatigue; No weight change, appetite, colon cancer or breast cancer HEENT HEENT: No difficulty swallowing, eye injury, eye surgery, swollen glands or hoarseness Endo Endocrine: No thyroid disease, diabetes mellitus, thyroid cancer, Hair loss, heat intolerance or cold intolerance Skin Skin: No rash or changing moles Musc Musculoskeletal: Yes back problems, arthritis and rheumatoid arthritis; No gout or joint pain Cardio Cardiovascular: Yes pacemaker, heart disease, atrial fibrillation, high blood pressure, heart attack and heart stent; No murmur, palpitations, shortness of breat with exertion or chest pain Psych Psychiatric: No depression, anxiety or hearing voices Resp Respiratory: Yes shortness of breath, Yes sleep apnea, No cough, No COPD, No asthma, No emphysema and No wheezing Gastro Gastrointestinal: No abdominal pain, Yes nausea or vomiting, No diarrhea, No constipation, Yes blood in stool, Yes acid reflux, Yes hemorrhoids, No ulcers, No gallbladder problem and No black,tarry stools Vincenzo Hematologic: Yes blood thinners, No blood disorders, No bleeding, Yes anemia and Yes blood clots Neuro Neurologic: No numbness and No tingling Exam Const General: cooperative, healthy appearing, comfortable and no acute distress HENMT Head: normocephalic and atraumatic Neck Neck: supple Resp Effort & Inspection: normal respiratory effort Cardio Rate: regular rate GI Inspection: non-distended Palpation: soft, no hernias and nontender Skin General: no rashes or lesions noted Neuro General: CN's II-XI intact bilaterally Extrem General: edema Psych Mental Status: mental status grossly normal Attitude: cooperative Assessment and Plan Assessment and Plan (1) CKD (chronic kidney disease): Status: Inactive (2) Anticoagulant long-term use: Status: Acute (3) Melena: Status: Acute Medications: New peg 3350-electrolytes 236-22.74-6.74 -5.86 gram (Golytely) until fecal effluent is clear 240 mL PO Q10M 4,000 mL 0RF Plan I have discussed the above with the patient. I have offered the patient EGD and colonoscopy for evaluation. I have explained the risks/benefits of the procedure and described the procedure. I have discussed the risks with the patient, including but not limited to: infection, bleeding, perforation of the GI tract requiring emergency surgery, inability to complete the procedure, injury to any internal organs, complications of anesthesia, etc. - the patient understands and agrees to proceed. I have answered all the patient's questions to the patient's satisfaction and the patient has no further questions. The patient has been given instructions for the colon cleansing preparation. GoLytely due to patient chronic kidney disease. Jewell Faust M.D. Pager: [phone] [facility] [address] [place] [address], [address] [place] [address] Office: [phone] Coding Level of Care Code Off vis,new,level 3 Diagnoses CKD (chronic kidney disease) N18.9 Anticoagulant long-term use Z79.01 Melena K92.1 10/30/22 1052 <Electronically signed by Jewell Faust MD> Date Jewell Faust MD
--- NOTE | 2022-11-05 07:30 | COLBX_PTH ---
PATIENT: Tim LONG LOC: [facility] U#:[id number] AGE/SX: 77/M ROOM: [facility] RE11/05/[address]: Dr. Geraldine Parisi MD : 1945 BED: 1 DIS: 11/09/2022 SPEC #: [id number] RECD: 11/05/22 11:49 STATUS: JOSHUA MONTERROSO #: [id number] SUSHIL: 11/05/22 07:[address]: Jewell Faust DEPT: SURGICAL PATHOLOGY RECD BY: Conner Weeks ENTERED: 11/05/22 13:06 SP TYPE: COLON BX OTHR DR: Dr. Tomás Patino MD Tissues: A - Gastric mucous membrane B - Transverse colon C - Descending colon D - Sigmoid colon biopsy E - Rectum, NOS Procedures: Surgery Specimen Level IV HEADER OPERATION: Colonoscopy with polypectomy, EGD with polypectomy PRE-OP DIAGNOSIS: Chronic kidney disease, anticoagulant long-term use TISSUE SUBMITTED: A - Gastric polyp, rule out malignancy, H. pylori and path, B - Transverse polyp x2, C - Descending polyp x2, D - Sigmoid polyp, E - Rectal polyp MICROSCOPIC DIAGNOSIS A. Gastric polyp, biopsy: Hyperplastic polyp with focal mucosal ulceration, associated acute chronic inflammation, granulation and fibrinopurulent material See comment. B. Transverse colon polyp, biopsy: Fragments of tubular adenoma. C. Descending colon polyp, biopsy: Fragments of tubular adenoma. D. Sigmoid colon polyp, biopsy: Consistent with inflammatory polyp. E. Rectal polyp, biopsy: Cauterized fragment of benign colonic mucosa. See Comment. AM:mariya 11/06/2022 COMMENT A. The results of immunohistochemistry for Helicobacter pylori will be reported separately ([id number]). This case was discussed with Dr. Faust by Dr. Coffey 11/06/22. E. An inflammatory polyp is favored. Clinical correlation is suggested. Case has been reviewed in consultation with Dr. Crowley who concurs with the above diagnosis. IDC:NAINA MICROSCOPIC DESCRIPTION Slides are reviewed. GROSS DESCRIPTION A - Received in fixative is one container labeled with the patient's name and designated gastric polyp. The specimen consists of a ho-pink polyp measuring 1.0 x 1.0 x 1.0 cm. The polyp is bisected. Also present in the container are multiple fragments of ho soft tissue measuring in aggregate 0.5 x 0.5 x 0.1 cm. The entire specimen is submitted in one cassette. B - Received in fixative is one container labeled with the patient's name and designated transverse polyp x2. The specimen consists of two irregular fragments of light ho soft tissue that in aggregate measure 0.6 x 0.5 x 0.2 cm. The specimen is totally submitted in one cassette. C - Received in fixative is one container labeled with the patient's name and designated descending polyps x2. The specimen consists of two irregular fragments of light ho soft tissue that in aggregate measure 0.5 x 0.5 x 0.1 cm. The specimen is totally submitted in one cassette. D - Received in fixative is one container labeled with the patient's name and designated sigmoid polyp. The specimen consists of one irregular fragment of light ho soft tissue that measures 0.5 x 0.3 x 0.1 cm. The specimen is totally submitted in one cassette. E - Received in fixative is one container labeled with the patient's name and designated rectal polyp. The specimen consists of multiple irregular fragments of light ho soft tissue that in aggregate measure 1.0 x 0.5 x 0.1 cm. The specimen is totally submitted in one cassette. / SJ:rg 11/05/2022 TC:1 CPT: 22333 x5
--- NOTE | 2022-11-05 07:30 | IMM_PTH ---
PATIENT: Tim LONG LOC: [facility] U#:[id number] AGE/SX: 77/M ROOM: [facility] RE11/05/[address]: Dr. Geraldine Parisi MD : 1945 BED: 1 DIS: 11/09/2022 SPEC #: [id number] RECD: 11/05/22 14:38 STATUS: JOSHUA RERuth #: [id number] SUSHIL: 11/05/22 07:[address]: Jewell Faust DEPT: IMMUNOHISTOCHEMISTRY RECD BY: Aracelis Alanis ENTERED: 11/05/22 14:39 SP TYPE: IMMUNO OTHR DR: Dr. Tomás Patino MD Tissues: A - Stomach, NOS Procedures: H Pylori (initial) PHYSICIAN & INSTITUTION [place] [address] SPECIMEN INFORMATION: Tissue Source: A - Gastric polyp Clinical Info: Chronic kidney disease, anticoagulant long-term use Specimen Number: [id number] CPT code: 23486 METHODOLOGY: Deparaffinized sections of prefer/formalin-fixed tissue or PAP/DQ stained slides are incubated with monoclonal/polyclonal antibodies/oligonucleotide probes. Localization is made via biotin free immunoperoxidase method. Appropriate controls are performed and reacted as expected. Results on target cell population are indicated in the following table: RESULTS: ANTIBODY / CLONE RESULT Block A H Pylori (polyclonal) negative These tests were developed and their performance characteristics determined by [facility]. They may not have been cleared or approved by the U.S. Food and Drug Administration. The FDA has determined that such clearance or approval is not necessary. The above immunohistochemical/dualISH markers are ordered and reviewed by the Pathologist. INTERPRETATION: A. Gastric polyp, biopsy: Negative for Helicobacter pylori organisms. AM:mariya 11/06/2022
[2022-11-05 08:10] LABS: Bedside Glucose 139 mg/dL (74-106)
--- NOTE | 2022-11-05 08:24 | OP.EGD_ITS ---
Patient Name: Tim Devi Procedure Date: 11/05/2022 7:33 AM Date of : 1945 Age: 77 Procedure: Upper GI endoscopy Indications: Melena Providers: Jewell Faust MD Referring MD: Tomás Patino Medicines: Monitored Anesthesia Care Patient Profile: This is a 77 year old male. Complications: No immediate complications. Procedure: Pre-Anesthesia Assessment: - Prior to the procedure, a History and Physical was performed, and patient medications and allergies were reviewed. The patient's tolerance of previous anesthesia was also reviewed. The risks and benefits of the procedure and the sedation options and risks were discussed with the patient. All questions were answered, and informed consent was obtained. Prior Anticoagulants: The patient has taken Coumadin (warfarin), last dose was 5 days prior to procedure. ASA Grade Assessment: Per anesthesia. After reviewing the risks and benefits, the patient was deemed in satisfactory condition to undergo the procedure. After obtaining informed consent, the endoscope was passed under direct vision. Throughout the procedure, the patient's blood pressure, pulse, and oxygen saturations were monitored continuously. The Colonoscope was introduced through the mouth, and advanced to the second part of duodenum. The upper GI endoscopy was accomplished without difficulty. The patient tolerated the procedure well. Scope In: 7:42:13 AM Scope Out: 7:50:31 AM Total Procedure Duration Time 0 hours 8 minutes 18 seconds Findings: The Z-line was variable and was found 40 cm from the incisors. Multiple 2 mm pedunculated and sessile polyps with no bleeding and stigmata of recent bleeding were found in the gastric body. The polyp was removed with a hot snare. Resection and retrieval were complete. R/O malignancy Biopsies were taken with a cold forceps for histology. Biopsies were taken with a cold forceps for Helicobacter pylori cultures. The examined duodenum was normal. The cardia and gastric fundus were normal on retroflexion. Impression: - Z-line variable, 40 cm from the incisors. - Multiple gastric polyps. Resected and retrieved. Biopsied. - Normal examined duodenum. Recommendation: - Use Protonix (pantoprazole) 40 mg PO BID. - Continue present medications. - Resume Coumadin (warfarin) at prior dose tomorrow. Procedure Code(s): --- Professional --- 91903, Esophagogastroduodenoscopy, flexible, transoral; with removal of tumor(s), polyp(s), or other lesion(s) by snare technique 70181, 59, Esophagogastroduodenoscopy, flexible, transoral; with biopsy, single or multiple Diagnosis Code(s): --- Professional --- K22.8, Other specified diseases of esophagus K31.7, Polyp of stomach and duodenum K92.1, Melena (includes Hematochezia) CPT copyright 2017 [employer]. All rights reserved. The codes documented in this report are preliminary and upon binder coverstitch review may be revised to meet current compliance requirements. MD Jewell Tate MD 11/05/2022 8:23:54 AM This report has been signed electronically. Number of Addenda: 0 Note Initiated On: 11/05/2022 7:33 AM
--- NOTE | 2022-11-05 08:25 | OP.CCLET_ITS ---
11/05/2022 Tomás Patino [address] [place] [address] Re : Upper GI endoscopy procedure for Tim Devi Dear Dr. Patino This procedure was performed on Saturday, November 05, 2022. My impressions and recommendations are as follows: Impressions : - Z-line variable, 40 cm from the incisors. - Multiple gastric polyps. Resected and retrieved. Biopsied. - Normal examined duodenum. Recommendations : - Use Protonix (pantoprazole) 40 mg PO BID. - Continue present medications. - Resume Coumadin (warfarin) at prior dose tomorrow. My findings are described in the full procedure note, which is enclosed. If I can be of further assistance, please feel free to contact me at Doctor phone number(s): , Work: . Sincerely, MD Jewell Tate MD 11/05/2022 8:23:54 AM This report has been signed electronically.
--- NOTE | 2022-11-05 08:38 | CT_ITS ---
STUDY: CT CHEST, ABDOMEN T PELVIS WITH CONTRAST REASON FOR EXAM: There is, 77 years old. Gastric masses- FOUND ON SCOPE TODAY RADIATION DOSAGE (If Supplied By Facility): CTDIvol = ( 25.45 ) mGy, DLP = ( 2671.35 ) mGycm TECHNIQUE: Transaxial imaging was performed following intravenous administration of Oral and amp; IV Gastrografin and amp; 100mL Isovue-300. Multiplanar coronal and sagittal images were reformatted. Individualized dose optimization techniques were used for this CT. COMPARISON: Comparison is made with prior CT scan the chest dated March 27, 2022. FINDINGS: CHEST Mild increase markings at the lung bases suggest some mild scarring. There is no demonstrated pleural abnormality. There are calcifications of the coronary arteries. 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 There are multiple small lymph nodes within the mediastinum, which are normal in size and morphology most compatible with reactive lymph hyperplasia. Normal hilar regions. Normal unenhanced pulmonary arteries. Normal aorta arch and descending thoracic aorta. There are multi-level degenerative changes of the thoracic spine. ABDOMEN There is hepatomegaly with diffuse hepatic enlargement. 5 mm hypodensity seen in the posterior aspect of the left lobe of liver suggestive of a small cyst. Normal gallbladder and extrahepatic biliary system. There is mild splenomegaly. Normal pancreas. Normal bilateral adrenal glands. Normal right kidney. Normal left kidney. Mural thickening of the distal aspect of the stomach. Normal small intestine. There are scattered colonic diverticula consistent with diverticulosis. The appendix is visualized and appears normal. There is diffuse atherosclerotic calcification of the abdominal aorta and its major visceral branches, without a demonstrated aneurysm. Normal inferior vena cava. Normal retroperitoneum. PELVIS Normal urinary bladder. Central prostatic calcifications. There is no pelvic fluid. There is no pelvic lymphadenopathy or mass lesion. There is diffuse atherosclerotic calcification of the pelvic arteries. Normal abdominal wall. There are mild degenerative changes of the visualized lumbar spine. CT/CT Chest, Abd, Pel w/Contrast IMPRESSION: Thickening of the distal portion of the stomach. Findings suggestive of a 5 mm hypodensity in the posterior aspect of the left lobe of the liver suggestive of a small cyst. Mild cardiomegaly. Electronically Signed: Cosmo Malone MD at 12:52 EDT ,
--- NOTE | 2022-11-05 08:38 | OP.COLON_ITS ---
Patient Name: Tim Devi Procedure Date: 11/05/2022 7:51 AM Date of : 1945 Age: 77 Procedure: Colonoscopy Indications: Melena Providers: Jewell Faust MD Referring MD: Tomás Patino Medicines: Monitored Anesthesia Care Patient Profile: This is a 77 year old male. Last Colonoscopy: 2017. Complications: No immediate complications. Procedure: Pre-Anesthesia Assessment: - Prior to the procedure, a History and Physical was performed, and patient medications and allergies were reviewed. The patient's tolerance of previous anesthesia was also reviewed. The risks and benefits of the procedure and the sedation options and risks were discussed with the patient. All questions were answered, and informed consent was obtained. Prior Anticoagulants: The patient has taken Coumadin (warfarin), last dose was 5 days prior to procedure. ASA Grade Assessment: Per anesthesia. After reviewing the risks and benefits, the patient was deemed in satisfactory condition to undergo the procedure. After I obtained informed consent, the scope was passed under direct vision. Throughout the procedure, the patient's blood pressure, pulse, and oxygen saturations were monitored continuously. The Colonoscope was introduced through the anus and advanced to the cecum, identified by the ileocecal valve. The colonoscopy was performed without difficulty. The patient tolerated the procedure well. The quality of the bowel preparation was good except the cecum was unsatisfactory. Scope In: 7:52:06 AM Scope Withdrawal Time 0 hours 15 minutes 58 seconds Scope Out: 8:14:59 AM Total Procedure Duration Time 0 hours 22 minutes 53 seconds Findings: The perianal and digital rectal examinations were normal. Five semi-pedunculated polyps were found in the sigmoid colon, descending colon and transverse colon. The polyps were 3 to 5 mm in size. These polyps were removed with a hot snare. Resection and retrieval were complete. Multiple sessile polyps were found in the rectum. The polyps were less than 5 mm in size. This polyp was removed with a hot snare. Resection and retrieval was complete. Multiple small-mouthed diverticula were found in the sigmoid colon. Impression: - Five 3 to 5 mm polyps in the sigmoid colon, in the descending colon and in the transverse colon, removed with a hot snare. Resected and retrieved. - Multiple less than 5 mm polyps in the rectum, removed with a hot snare. Resected and retrieved. - Diverticulosis in the sigmoid colon. Recommendation: - Discharge patient to home. - Resume previous diet. - Continue present medications. - Await pathology results. - Repeat colonoscopy in 3 - 5 years for surveillance based on pathology results. Procedure Code(s): --- Professional --- 31407, Colonoscopy, flexible; with removal of tumor(s), polyp(s), or other lesion(s) by snare technique Diagnosis Code(s): --- Professional --- D12.5, Benign neoplasm of sigmoid colon D12.4, Benign neoplasm of descending colon D12.3, Benign neoplasm of transverse colon (hepatic flexure or splenic flexure) K62.1, Rectal polyp K92.1, Melena (includes Hematochezia) K57.30, Diverticulosis of large intestine without perforation or abscess without bleeding CPT copyright 2017 [employer]. All rights reserved. The codes documented in this report are preliminary and upon auditing coder review may be revised to meet current compliance requirements. MD Jewell Tate MD 11/05/2022 8:38:27 AM This report has been signed electronically. Number of Addenda: 0 Note Initiated On: 11/05/2022 7:51 AM
--- NOTE | 2022-11-05 08:39 | OP.CCLET_ITS ---
11/05/2022 Tomás Patino [address] [place] [address] Re : Colonoscopy procedure for Tim Devi Dear Dr. Patino This procedure was performed on Saturday, November 05, 2022. My impressions and recommendations are as follows: Impressions : - Five 3 to 5 mm polyps in the sigmoid colon, in the descending colon and in the transverse colon, removed with a hot snare. Resected and retrieved. - Multiple less than 5 mm polyps in the rectum, removed with a hot snare. Resected and retrieved. - Diverticulosis in the sigmoid colon. Recommendations : - Discharge patient to home. - Resume previous diet. - Continue present medications. - Await pathology results. - Repeat colonoscopy in 3 - 5 years for surveillance based on pathology results. My findings are described in the full procedure note, which is enclosed. If I can be of further assistance, please feel free to contact me at Doctor phone number(s): , Work: . Sincerely, MD Jewell Tate MD 11/05/2022 8:38:27 AM This report has been signed electronically.
[2022-11-05] MEDS: Lactated Ringers 1,000 ML 80 ML IV ×2 (08:45→19:36)
[2022-11-05 09:11] LABS: Absolute Lymphocyte Count 0.65 X10^3/uL (0.83-4.51); Absolute Neutrophil Count 2.5 X10^3/uL (2.0-7.7); Basophil# 0.03 X10^3/uL; Basophil% 0.8 % (0-1); Eosinophil# 0.11 X10^3/uL; Hematocrit 20.8 % (40-54); Hemoglobin 5.8 g/dL (13.0-16.5); Lymphocyte # 0.65 X10^3/ul (0.83-4.51); Lymphocyte % 17.5 % (19-41); Mean Corp Hgb Conc 27.9 g/dL (32-36); Mean Corpuscular Hgb 21.4 pg (27.0-32.0); Mean Corpuscular Volume 76.8 fL (80-94); Mean Platelet Vol. 9.4 fl (6.2-12.0); Monocyte# 0.42 X10^3/uL; Monocyte% 11.3 % (0-10); NRBC Flagged by Analyzer 0 % (0-5); Neutrophil # 2.49 X10^3/uL (2.7-7.7); Neutrophil % 66.9 % (47-70); POSITIVE COUNT YES; Platelet Count 134 K/mm3 (150-450); RBC Distribution Width CV 17.7 % (11.6-14.6); RBC Distribution Width SD 49.3 fl (35.1-43.9); Red Blood Count 2.71 M/mm3 (4.6-6.2); White Blood Count 3.7 K/mm3 (4.4-11.0)
[2022-11-05 09:13] LABS: Differential Indicated SCAN CRITERIA MET
[2022-11-05 09:27] LABS: AST(SGOT) 17 U/L (15-37); Alanine Aminotransfer ALT/SGPT 13 U/L (16-61); Albumin, Serum 2.6 g/dL (3.2-5.0); Alkaline Phosphatase 58 U/L (45-117); Anion Gap 5 (5-15); BUN 15 mg/dL (7-18); BUN/Creat Ratio 13.5 RATIO (10-20); Bilirubin, Direct 0.36 mg/dL (0.00-0.30); Calcium,Total 7.7 mg/dL (8.5-10.1); Chloride 104 mmol/L (98-107); Creatinine, Serum 1.11 mg/dL (0.70-1.30); EST Glomerular Filtration Rate 68 mL/min (>60); Est Glom Filt Rate - Afr Amer 83 mL/min (>60); Estimated Creatinine Clearance 53.92 ml/min; Globulin 3.1 g/dL (2.2-4.2); Glucose 150 mg/dL (74-106); Potassium 2.9 mmol/L (3.5-5.1); Protein, Total 5.7 g/dL (6.4-8.2); Sodium Level 141 mmol/L (136-145)
[2022-11-05 09:35] LABS: Hematocrit 22.4 % (40-54); Hemoglobin 6.1 g/dL (13.0-16.5); Mean Corp Hgb Conc 27.2 g/dL (32-36); Mean Corpuscular Hgb 21.3 pg (27.0-32.0); Mean Platelet Vol. 9.2 fl (6.2-12.0); Platelet Count 137 K/mm3 (150-450); RBC Distribution Width CV 17.7 % (11.6-14.6); RBC Distribution Width SD 50.1 fl (35.1-43.9); Red Blood Count 2.87 M/mm3 (4.6-6.2); White Blood Count 3.9 K/mm3 (4.4-11.0)
[2022-11-05 09:40] LABS: Differential Comment SCANNED
--- NOTE | 2022-11-05 09:53 | PCM.PN.BLA ---
Progress Note Patient's polyp/nodules in the stomach suspicious for malignancy. Did order labs as well as CT chest abdomen pelvis with p.o. and IV contrast. Patient's hemoglobin came back as 5.8 redraw was 6.1 patient did initially have scopes due to melena which he states he only had for 2 days and then did not have any longer. Patient is on Coumadin normally but has been off it for 5 days. Did discuss with the hospitalist will plan to admit to the hospital for blood transfusion and observation. Currently 2 packs red blood cells are ordered and patient's potassium was also 2.9 did order 40 of KCl IV.
--- NOTE | 2022-11-05 09:58 | HP.PCM.HOS_ITS ---
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 Faust. Reported having 2 episodes of melena about 2 weeks prior to this which then resolved. EGD revealed multiple gastric polyps concerning for malignancy, which were resected and biopsied. We revealed several small polyps less concerning for malignancy. Postop, patient was found to have a hemoglobin of 5.8. Recheck hemoglobin was 6.1, so patient was admitted for further management. On my interview, patient was resting comfortably in bed in his room in the PCU. States he feels improved after receiving 2 units of blood. States he has generally felt lethargic recently and has had dyspnea with only mild exertion. He denies any hematemesis. He denies any early satiety or changes in appetite. He denies any weight loss recently. He denies any fevers or chills. Patient lives with his and daughter at home. He has been able to do most things around the house for himself until recently due to his significant dyspnea on exertion. No other acute concerns at this time. [facility] Medical History (Updated 11/04/22 @ 09:57 by Minerva Escalante) Abnormal EKG Ambulates with cane Arthritis Atherosclerotic heart disease of habematolel coronary artery with other forms of angina pectoris Back pain Cardiology follow-up encounter Cellulitis Cellulitis of right leg Corns and callosities COVID-19 virus infection CPAP (continuous positive airway pressure) dependence Dermatitis of lower extremity Diabetes Diabetes mellitus type 2 in obese Difficulty swallowing DVT (deep venous thrombosis) Easy bruising Essential (primary) hypertension Excessive bleeding Former smoker 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 Gastric reflux HFrEF (heart failure with reduced ejection fraction) High cholesterol History of deep vein thrombosis (DVT) of lower extremity History of echocardiogram History of edema History of heart attack History of irregular heartbeat History of non-ST elevation myocardial infarction (NSTEMI) (11/05/16) History of renal disease History of steroid therapy History of stress test Hyperlipidemia Insulin dependent diabetes mellitus Ischemic cardiomyopathy Leg cramps Localized edema Morbid obesity with BMI of 40.0-44.9, adult Nondisp fracture of fifth left metatarsal bone with routine healing Nonrheumatic tricuspid (valve) insufficiency Nonsustained ventricular tachycardia Normocytic anemia 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 Other specified peripheral vascular diseases Paroxysmal atrial flutter Peripheral vascular occlusive disease Restless legs Shortness of breath on exertion Sleep apnea Syncope TIA (transient ischemic attack) Type 2 diabetes mellitus Ulcer of left lower extremity with fat layer exposed Ulcer of right lower extremity Ulcer of right lower extremity with fat layer exposed Ulcer of right lower extremity with fat layer exposed Uncontrolled type 2 diabetes mellitus Walker as ambulation aid Walking difficulty due to ankle and foot Wears dentures Wears glasses Xerosis cutis Home Medications latanoprost 0.005 % eye drops 1 drp EACH EYE TID glaucoma 11/17/18 [History Last Taken 11/04/22 20:00] ropinirole 0.5 mg tablet 1 mg PO QHS legs 12/10/21 [History Last Taken 11/04/22 20:00] ondansetron 4 mg disintegrating tablet 4 mg PO Q6H PRN Nausea 03/16/22 [History Last Taken Unknown] albuterol sulfate 2.5 mg/3 mL (0.083 %) solution for nebulization 2.5 mg (3 mL) inhalation Q4H.RT PRN WHEEZING 30 days #360 mL 04/14/22 [Rx Last Taken 11/04/22 08:00] gabapentin 600 mg tablet 600 mg PO TID 30 days #90 tabs 04/14/22 [Rx Last Taken 11/05/22 08:00] albuterol sulfate 90 mcg/actuation aerosol inhaler 2 puff inhalation Q6H PRN shortness of breath or wheezing #8.5 grams 04/16/22 [Rx Last Taken Unknown] dapagliflozin propanediol 10 mg tablet (Farxiga) 10 mg PO DAILY diabetes 04/18/22 [History Last Taken 11/04/22 08:00] nitroglycerin 0.4 mg sublingual tablet 0.4 mg sublingual Q5M PRN Chest Pain #25 tabs 04/21/22 [Rx Last Taken Unknown] dulaglutide 3 mg/0.5 mL subcutaneous pen injector (Trulicity) 3 mg subcut QWEEK diabetes 05/20/22 [History Last Taken 11/02/22 08:00] potassium chloride 20 mEq tablet,extended release(part/cryst) (Klor-Con M) 20 m eq PO DAILY #30 tabs 07/18/22 [Rx Last Taken 11/04/22 08:00] carvedilol 6.25 mg tablet 6.25 mg PO BID This is a dose increase #180 tabs 08/07/22 [Rx Last Taken 11/05/22 08:00] isosorbide mononitrate 60 mg tablet,extended release 24 hr 60 mg PO DAILY #90 tabs 08/07/22 [Rx Last Taken 11/04/22 08:00] rosuvastatin 40 mg tablet 40 mg PO QHS Cholesterol #90 tabs 08/19/22 [Rx Last Taken 11/04/22 20:00] furosemide 80 mg tablet (Lasix) 80 mg PO DAILY water pill 10/30/22 [History Last Taken 11/04/22 08:44] insulin lispro 100 unit/mL subcutaneous pen (Humalog KwikPen (U-100) Insulin) 21 unit subcut TID blood sugar 10/30/22 [History Last Taken 11/04/22 18:00] peg 3350-electrolytes 236 gram-22.74 gram-6.74 gram-5.86 gram solution (Golytely) 240 ml PO Q10M #4,000 mL 10/30/22 [Rx Last Taken 11/04/22 12:00] warfarin 6 mg tablet 6 mg PO .every day 10/30/22 [History Last Taken 11/01/22] insulin glargine-yfgn 100 unit/mL (3 mL) subcutaneous pen 30 unit subcut BID blood sugar 11/04/22 [History Last Taken 11/04/22 20:00] Allergy/AdvReac Type Severity Reaction Status Date / Time ceftriaxone sodium Allergy Rash Verified 11/05/22 06:52 [From Rocephin] milk AdvReac Diarrhea Verified 11/05/22 06:52 morphine AdvReac hallucinati Verified 11/05/22 06:52 ons Family History Father , Age 78 Prostate cancer Mother , Age 80 CVA (cerebral vascular accident) Sister Congestive heart failure Diabetes Hypertension Hyperlipidemia Atrial fibrillation CAD (coronary artery disease) Cardiac defibrillator in situ Sister Breast cancer Sister Breast cancer Brother CAD (coronary artery disease) Myocardial infarction Diabetes Brother Diabetes Brother , Age 74 COPD (chronic obstructive pulmonary disease) Sister Alive and well Surgical History (Updated 11/04/22 @ 09:47 by Minerva Escalante) H/O colonoscopy with polypectomy (11/2017) History of angioplasty of peripheral vessel History of cardiac catheterization History of coronary artery stent placement (12/15/14) History of detached retina repair History of electrophysiologic study (11/23/02) History of implantable cardiac defibrillator (ICD) (11/19/17) History of implantable cardiac defibrillator (ICD) History of left heart catheterization (12/06/18) History of radiofrequency ablation procedure for cardiac arrhythmia (07/01/11) ICD (implantable cardioverter-defibrillator) in place Social History household members: spouse housing: house current occupational status: retired pets and animals: Yes (2 dogs, 2 cats) Smoking Status: Former smoker pack-years: 20 how long ago did patient quit smokin years ago alcohol intake: never caffeine: Yes Type: coffee Number of servings: 1 ROS Constitutional Constitutional: Reports fatigue; Denies change in weight, chills or fever(s) Eyes Eyes: Denies change in vision ENT HEENT: Denies abnormal hearing or headache(s) Cardiovascular Cardiovascular: Reports dyspnea on exertion; Denies chest pain, edema or lightheadedness Respiratory/Chest Respiratory/Chest: Denies cough Gastrointestinal Gastrointestinal: Reports melena; Denies abdominal pain, constipation, diarrhea, hematemesis, nausea or vomiting Genitourinary Genitourinary: Denies dysuria Musculoskeletal Musculoskeletal: Denies arthralgias or myalgias Neurologic Neurologic: Denies confusion, dizziness or focal weakness Hematologic/Lymphatic Hematologic/Lymphatic: Denies easy bleeding or easy bruising Vital Signs Vital Signs Vital Signs: 11/05/22 06:54 11/05/22 06:54 11/05/22 08:25 Temperature 97.9 F 97.8 F Temperature Source Temporal Temporal Pulse Rate 80 67 Respiratory Rate 16 16 Respiratory Pattern Normal Normal Blood Pressure 101/53 L 82/55 L Blood Pressure Mean 69 64 Blood Pressure Source Monitor Monitor Blood Pressure Position Supine Supine Blood Pressure Location Right Arm Left Arm Baseline BP 101/53 Pulse Ox 95 91 Oxygen Delivery Method Room Air Room Air 11/05/22 08:30 11/05/22 08:35 11/05/22 08:40 Temperature Temperature Source Pulse Rate 68 68 67 Respiratory Rate 16 16 16 Respiratory Pattern Blood Pressure 85/57 L 84/59 L 88/60 L Blood Pressure Mean 66 67 69 Blood Pressure Source Monitor Monitor Monitor Blood Pressure Position Supine Supine Supine Blood Pressure Location Left Arm Left Arm Left Arm Baseline BP 101/53 101/53 101/53 Pulse Ox 92 93 94 Oxygen Delivery Method Room Air Room Air Room Air 11/05/22 08:45 11/05/22 08:50 11/05/22 09:00 Temperature Temperature Source Pulse Rate 67 69 68 Respiratory Rate 16 16 16 Respiratory Pattern Blood Pressure 89/60 L 93/59 L 90/61 Blood Pressure Mean 69 70 70 Blood Pressure Source Monitor Monitor Monitor Blood Pressure Position Supine Supine Semi-Fowlers Blood Pressure Location Left Arm Left Arm Left Arm Baseline BP 101/53 101/53 101/53 Pulse Ox 95 100 96 Oxygen Delivery Method Room Air Room Air Room Air 11/05/22 09:10 Temperature 97.5 F L Temperature Source Temporal Pulse Rate 69 Respiratory Rate 16 Respiratory Pattern Blood Pressure 101/61 Blood Pressure Mean 74 Blood Pressure Source Monitor Blood Pressure Position Semi-Fowlers Blood Pressure Location Left Arm Baseline BP 101/53 Pulse Ox 96 Oxygen Delivery Method Room Air Weight Weight: 121 kg Body Mass Index (BMI) 40.5 Physical Exam Const alert and oriented x3 Constitutional Narrative: Pleasant male, resting comfortably in bed, conversing normally, no acute distress. Obese. General Appearance: cooperative, comfortable, well kempt and well developed HEENT normocephalic, head/scalp atraumatic, hearing grossly normal bilaterally, nasal mucous membranes and turbinates normal and moist oral mucous membranes Eyes PERRL, EOMs intact bilaterally and conjunctivae normal Neck full ROM and supple Chest inspection of chest normal Resp normal respiratory effort, normal air movement, no use of accessory muscles and clear to auscultation bilaterally Cardio regular rate, regular rhythm, no murmurs and peripheral pulses 2+ throughout GI normal to inspection, nondistended, normoactive bowel sounds, soft to palpation, non-tender and non-distended Back/Spine normal ROM Extremity normal to inspection, full ROM and no pedal edema Extremity Narrative: Mild bilateral skin thickening noted on lower legs, chronic. Skin no rashes or lesions noted Psych mental status grossly normal Results Lab / Micro Data 11/05/22 09:24 11/05/22 08:53 Labs: Laboratory Results - last 24 hr 11/05/22 06:48: POC Glucose 139 H 11/05/22 08:53: WBC 3.7 L, RBC 2.71 L, Hgb 5.8 L*, Hct 20.8 L, MCV 76.8 L, MCH 21.4 L, MCHC 27.9 L, RDW Std Deviation 49.3 H, RDW Coeff of Galo 17.7 H, Plt Count 134 L, MPV 9.4, Immature Gran % (Auto) 0.500, Neut % (Auto) 66.9, Lymph % (Auto) 17.5 L, [place] % (Auto) 11.3 H, Eos % (Auto) 3.0, Baso % (Auto) 0.8, Absolute Neuts (auto) 2.5, Absolute Lymphs (auto) 0.65 L, Nucleated RBC % 0, Differential Comment SCANNED, Diff Path Review July, Sodium 141, Potassium 2.9 L, Chloride 104, Carbon Dioxide 32.0, Anion Gap 5, BUN 15, Creatinine 1.11, Estim Creat Clear Calc 53.92, Est GFR (MDRD) Af Amer 83, Est GFR (MDRD) Non-Af 68, BUN/Creatinine Ratio 13.5, Glucose 150 H, Calcium 7.7 L, Total Bilirubin 1.20 H, Direct Bilirubin 0.36 H, AST 17, ALT 13 L, Alkaline Phosphatase 58, Total Protein 5.7 L, Albumin 2.6 L, Globulin 3.1 11/05/22 09:21: Crossmatch See Detail 11/05/22 09:24: WBC 3.9 L, RBC 2.87 L, Hgb 6.1 L, Hct 22.4 L, MCV 78.0 L, MCH 21.3 L, MCHC 27.2 L, RDW Std Deviation 50.1 H, RDW Coeff of Galo 17.7 H, Plt Count 137 L, MPV 9.2 Assessment & Plan Assessment/Plan (1) Melena: PLAN: Plan Patient is a 77-year-old male with past medical history significant for ischemic cardiomyopathy s/p ICD, CAD (no stent placement), insulin-dependent type 2 diabetes, CKD stage III, 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 Admitted to PCU for further management. 1. GI bleed, acute blood loss anemia?suspect slow bleed over last few weeks from gastric polyps that were resected during EGD. More susceptible to bleed as he is on anticoagulation. Hemoglobin 5.8, recheck 6.1 post procedure. S/p 2 units of packed red blood cells in the ACU prior to arrival to the PCU. Vital stable on arrival to PCU. Will recheck hemoglobin tonight and again tomorrow morning. Iron studies, LDH and haptoglobin ordered. Patient denies any bowel movements since his colonoscopy. Currently feels much improved from this morning. Will start PPI twice daily. Surgery to follow. 2. Concern for gastric malignancy?multiple gastric polyps resected during EGD as noted in operative report. Per Dr. Faust, have concern for possible gastric cancer. CT chest/abdomen/pelvis with p.o. and IV contrast on 11/05 shows thickening of the distal portion of the stomach but otherwise shows no evidence of a metastatic malignancy. Will defer to surgery for further workup. 3. Hypokalemia?suspect secondary to electrolyte shifts in setting of GI bleed. K 2.9 on admit. Replete as needed with goal K > 3.5. 4. Hypocalcemia?mild, unclear etiology. Patient is asymptomatic. Monitor post blood transfusion, replete as needed. 5. History of DVTs on Coumadin?holding Coumadin in setting of GI bleed. Will discuss optimal timing for restarting with surgery. 6. Ischemic cardiomyopathy?diagnostic cath done in 07/2022 showed an EF of 35%, CAD with an occluded RCA with good collateral flow, moderate left circumflex disease and moderate LAD disease. Also showed inferior mid akinesis and moderate global hypokinesis. Home medications are Coreg 6.25 mg twice daily, Lasix 80 mg daily, Imdur 60 mg daily and K-Dur 20 mg daily. Will hold Lasix, Imdur, and caterer at this time. Will replete potassium manually as above. Continue home Coreg. 7. Insulin-dependent type 2 diabetes?Home medications of glargine 30 units twice daily, lispro 21 units 3 times daily, dapagliflozin 10 mg daily, Trulicity 3 mg weekly, and gabapentin 600 mg 3 times daily. Will dose reduce home insulin to Lantus 20 units twice daily and Humalog 10 units 3 times daily AC with medium sliding scale. Okay to continue gabapentin at home dose. 8. Hyperlipidemia?continue home rosuvastatin. 9. Restless leg syndrome?continue home ropinirole. DVT prophylaxis: Mechanical, holding home Coumadin in setting of GI bleed CODE STATUS: Full code?verified with patient at bedside Total clinical time spent by myself addressing the patient's medical issues, reviewing all of the data, and collaborating with patient's care team: 55 minutes. Charges/Coding Visit Charges Inpatient E&M: 70341 Init Hosp L2
[2022-11-05 10:35] LABS: International Normalized Ratio 1.4; Prothrombin Time (Protime)PT. 16.9 SECONDS (11.7-14.9)
[2022-11-05] MEDS: Potassium Chloride 10mEq/100mL 10 MEQ/100 ML IV.SOLN. 100 MEQ IV BOLUS ×4 (10:35→14:32)
[2022-11-05 15:17] LABS: Ferritin 11 ng/mL (26-388); Iron 19 ug/dL (65-175); Iron Binding Capacity,Total 401 ug/dL (250-450); LDH 222 U/L (87-241); PERCENT IRON SATURATION 4.7 % (15.0-55.0)
[2022-11-05] MEDS: Gabapentin 600 MG Tablet PO ×2 (16:31→21:09)
[2022-11-05 16:56] LABS: Bedside Glucose 110 mg/dL (74-106)
[2022-11-05 20:42] LABS: Magnesium 1.9 mg/dL (1.6-2.6)
[2022-11-05] MEDS: Pramipexole Di-HCl 0.5 MG Tablet PO (21:09)
[2022-11-05] MEDS: Acetaminophen 325 MG Tablet 650 MG PO (21:10)
[2022-11-05 21:18] LABS: Hematocrit 28.5 % (40-54); Hemoglobin 8.1 g/dL (13.0-16.5); Mean Corp Hgb Conc 28.4 g/dL (32-36); Mean Corpuscular Hgb 22.8 pg (27.0-32.0); Mean Corpuscular Volume 80.1 fL (80-94); Mean Platelet Vol. 10.1 fl (6.2-12.0); Platelet Count 138 K/mm3 (150-450); RBC Distribution Width CV 17.6 % (11.6-14.6); RBC Distribution Width SD 51.3 fl (35.1-43.9); Red Blood Count 3.56 M/mm3 (4.6-6.2); White Blood Count 5.3 K/mm3 (4.4-11.0)
[2022-11-05] MEDS: Atorvastatin Calcium 80 MG Tablet PO (21:23)
[2022-11-05 21:28] LABS: Potassium 3.3 mmol/L (3.5-5.1)
[2022-11-05] MEDS: Insulin Glargine-YFGN 100 UNIT/ML Pen 20 UNIT SC (21:36)
[2022-11-05 22:04] LABS: Bedside Glucose 198 mg/dL (74-106)
--- NOTE | 2022-11-05 22:19 | PCM.HOSP.N ---
Hospitalist Note Patient with dyspnea complaint, recent 2 u PRBC completion. Oxygenation 92 % on RA. Will decrease IVF, no marked crackles but diminished, will dose with lasix 20 mg IV x 1. Pending further evaluation may consider IVF d/c.
[2022-11-05] MEDS: 0.9% Saline Lock 10 ML Syringe IV (22:25)
[2022-11-05] MEDS: Furosemide 20 MG/2 ML VIAL IV (22:25)
--- NOTE | 2022-11-05 22:28 | EKG12_ITS ---
Test Reason : Blood Pressure : / mmHG Vent. Rate : 088 BPM Atrial Rate : 088 BPM P-R Int : 216 ms QRS Dur : 150 ms QT Int : 416 ms P-R-T Axes : 072 071 -13 degrees QTc Int : 503 ms Sinus rhythm with 1st degree A-V block Non-specific intra-ventricular conduction block Inferior infarct , age undetermined Abnormal ECG When compared with ECG of 07-NOV-2022 02:28, MANUAL COMPARISON REQUIRED, DATA IS UNCONFIRMED Confirmed by SYDNEY CLEARY ([id number]), newspaper editor managing JEREMIAS MARKS ([id number]) on 11/18/2022 9:24:59 AM Referred By: Tomás Patino Confirmed By:SYDNEY CLEARY
[2022-11-05] MEDS: Potassium Chloride Oral Tablet 20 MEQ 40 MEQ PO (22:30)
[2022-11-05] MEDS: Albuterol 2.5 MG/3 ML VIAL.NEB. INHALATION (22:46)
[2022-11-05 23:07] LABS: Troponin-I HS 81 pg/mL (3.0-78.0)
[2022-11-05 23:32] LABS: Troponin-I HS 83 pg/mL (3.0-78.0)
[2022-11-06] VITALS (9 sets, daily range): BP systolic 120–138; BP diastolic 73–82; PULSE 74–85; RESP 14–20; TEMP 36.2–36.8; O2SAT 95–99
[2022-11-06 03:40] LABS: Absolute Lymphocyte Count 0.69 X10^3/uL (0.83-4.51); Absolute Neutrophil Count 3.1 X10^3/uL (2.0-7.7); Basophil# 0.03 X10^3/uL; Basophil% 0.7 % (0-1); Eosinophil# 0.11 X10^3/uL; Eosinophils% 2.5 % (0-5); Hematocrit 26.8 % (40-54); Hemoglobin 7.7 g/dL (13.0-16.5); Lymphocyte # 0.69 X10^3/ul (0.83-4.51); Lymphocyte % 15.6 % (19-41); Mean Corp Hgb Conc 28.7 g/dL (32-36); Mean Corpuscular Hgb 22.4 pg (27.0-32.0); Mean Corpuscular Volume 77.9 fL (80-94); Mean Platelet Vol. 9.3 fl (6.2-12.0); Monocyte# 0.43 X10^3/uL; Monocyte% 9.7 % (0-10); NRBC Flagged by Analyzer 0 % (0-5); Neutrophil # 3.14 X10^3/uL (2.7-7.7); Platelet Count 132 K/mm3 (150-450); RBC Distribution Width CV 17.8 % (11.6-14.6); RBC Distribution Width SD 49.2 fl (35.1-43.9); Red Blood Count 3.44 M/mm3 (4.6-6.2); White Blood Count 4.4 K/mm3 (4.4-11.0)
[2022-11-06 04:07] LABS: Anion Gap 7 (5-15); BUN 12 mg/dL (7-18); BUN/Creat Ratio 12.2 RATIO (10-20); Calcium,Total 8.2 mg/dL (8.5-10.1); Chloride 105 mmol/L (98-107); Creatinine, Serum 0.99 mg/dL (0.70-1.30); EST Glomerular Filtration Rate 78 mL/min (>60); Est Glom Filt Rate - Afr Amer 95 mL/min (>60); Estimated Creatinine Clearance 60.45 ml/min; Glucose 166 mg/dL (74-106); Potassium 3.2 mmol/L (3.5-5.1); Sodium Level 142 mmol/L (136-145); Troponin-I HS 102 pg/mL (3.0-78.0)
[2022-11-06] MEDS: Gabapentin 600 MG Tablet PO ×3 (05:02→21:52)
--- NOTE | 2022-11-06 05:55 | ECHOCS_ITS ---
Reason For Study: CHF Procedure This was a 2D Doppler, Color Flow transthoracic echocardiogram. The study was technically difficult. Contrast injection was performed. Due to body habitus. Exam performed portable in patient room. Left Ventricle Normal LV size. The estimated ejection fraction is 55 %. Normal diastololic function. No regional wall motion abnormalities noted. Right Ventricle Normal RV size. ICD or pacer leads identified within the right ventricle. Normal systolic function. Atria Normal left atrium. Normal right atrium. ICD or pacer leads identified within the right atrium. No doppler evidence for ASD. Mitral Valve There is no mitral valve stenosis. Trivial mitral valve insufficiency. Tricuspid Valve There is no tricuspid stenosis. Mild tricuspid valve insufficiency. Pulmonary artery systolic pressure is 30-35 mmHg. Aortic Valve Aortic sclerosis, no stenosis. There is no aortic stenosis. No aortic valve insufficiency. Pulmonic Valve There is no pulmonic valvular stenosis. No pulmonic valve insufficiency. Great Vessels Normal aortic root. Pericardium/Pleural No pericardial effusion. Medication Diluted definity 2.0ml given slow IV push to enhance endocardial definition. MMode/2D Measurements & Calculations LVIDd: 6.0 cm IVSd: 1.5 cm Ao root diam: 3.1 cm LVIDs: 4.8 cm LVPWd: 1.3 cm FS: 20.3 % LAV(MOD-bp): 78.6 ml LVAd ap4: 42.6 cm2 LVAd ap2: 36.3 cm2 LAV(MOD-bp) Indexed: 33.7 ml/m2 LVLd ap4: 10.0 cm LVLd ap2: 10.1 cm LAV(MOD-sp2): 77.5 ml EDV(MOD-sp4): 155.6 ml EDV(MOD-sp2): 115.0 ml LAV(MOD-sp4): 77.7 ml EDV(sp4-el): 154.4 ml EDV(sp2-el): 111.2 ml LVAs ap4: 27.8 cm2 LVAs ap2: 21.0 cm2 LVLs ap4: 9.1 cm LVLs ap2: 8.3 cm ESV(MOD-sp4): 73.4 ml ESV(MOD-sp2): 45.9 ml ESV(sp4-el): 72.0 ml ESV(sp2-el): 44.8 ml EF(MOD-sp4): 52.8 % EF(MOD-sp2): 60.1 % EF(sp4-el): 53.4 % SV(MOD-sp4): 82.2 ml SV(MOD-sp2): 69.1 ml SV(sp4-el): 82.4 ml LA A4 area: 25.0 cm2 LA dimension(2D): 4.4 cm RA A4 area: 20.5 cm2 Time Measurements MV dec time: 0.17 sec Doppler Measurements & Calculations MV E max kuldip: 86.8 cm/sec Lat Peak E' Kuldip: 12.2 cm/sec Med Peak E' Kuldip: 6.1 cm/sec MV A max kuldip: 93.4 cm/sec E/E' lat: 7.1 E/E' med: 14.2 MV E/A: 0.93 Ao V2 max: 124.8 cm/sec LV V1 max: 115.7 cm/sec PA V2 max: 86.5 cm/sec Ao max P.2 mmHg LV V1 max P.4 mmHg PA V2 mean: 66.9 cm/sec Ao V2 mean: 78.1 cm/sec LV V1 mean P.9 mmHg Ao mean P.9 mmHg LV V1 mean: 81.3 cm/sec Ao V2 VTI: 25.5 cm LV V1 VTI: 23.3 cm AV (velocity ratio): 0.91 TR max kuldip: 267.3 cm/sec TR max P.6 mmHg ECHO/Echo Complete W/ Contrast Interpretation Summary The estimated ejection fraction is 55 %. Trivial mitral valve insufficiency. Ordering Physician: Belgica Kitchen Referring Physician: Tomás Patino Performed By: Ngozi Dillard, EMMA, RVT
--- NOTE | 2022-11-06 08:15 | PCM.PN.SRG ---
Subjective Subjective Patient is a 77 y/o M I am following in conjunction with Dr. Ferguson in Dr. Faust's absence. Patient has no complaints from the upper and lower procedure by Dr. Faust. Pathology is not resulted. Objective Data Objective Data Vital Signs: Vital Signs Temp Pulse Resp BP Pulse Ox O2 Del Method O2 Flow Rate 97.8 F 75 16 120/80 98 Room Air 2 11/06/22 04:40 11/06/22 04:40 11/06/22 04:40 11/06/22 04:40 11/06/22 04:40 11/06/22 07:50 11/06/22 04:40 Oxygen Flow Rate (L/min) 2 Oxygen Delivery Method Room Air Weight: 273 lb Body Mass Index (BMI) 41.5 Intake & Output: Intake and Output for Last 24 Hours 11/04/22 11/05/22 11/06/22 23:59 23:59 23:59 Intake Total 3404.08 / 3404.08 Output Total 600 / 600 800 / 800 Balance 2804.08 / 2804.08 -800 / -800 Lab / Micro Data 11/06/22 03:24 11/06/22 03:24 Labs: Laboratory Results - last 24 hr 11/05/22 08:53: WBC 3.7 L, RBC 2.71 L, Hgb 5.8 L*, Hct 20.8 L, MCV 76.8 L, MCH 21.4 L, MCHC 27.9 L, RDW Std Deviation 49.3 H, RDW Coeff of Galo 17.7 H, Plt Count 134 L, MPV 9.4, Immature Gran % (Auto) 0.500, Neut % (Auto) 66.9, Lymph % (Auto) 17.5 L, [place] % (Auto) 11.3 H, Eos % (Auto) 3.0, Baso % (Auto) 0.8, Absolute Neuts (auto) 2.5, Absolute Lymphs (auto) 0.65 L, Nucleated RBC % 0, Differential Comment SCANNED, Diff Path Review July, Sodium 141, Potassium 2.9 L, Chloride 104, Carbon Dioxide 32.0, Anion Gap 5, BUN 15, Creatinine 1.11, Estim Creat Clear Calc 53.92, Est GFR (MDRD) Af Amer 83, Est GFR (MDRD) Non-Af 68, BUN/Creatinine Ratio 13.5, Glucose 150 H, Calcium 7.7 L, Magnesium 1.9, Iron 19 L, TIBC 401, Iron Saturation 4.7 L, Ferritin 11 L, Total Bilirubin 1.20 H, Direct Bilirubin 0.36 H, AST 17, ALT 13 L, Alkaline Phosphatase 58, Lactate Dehydrogenase 222, Total Protein 5.7 L, Albumin 2.6 L, Globulin 3.1 11/05/22 09:21: Blood Type AB POSITIVE, Antibody Screen NEGATIVE, Crossmatch See Detail 11/05/22 09:24: WBC 3.9 L, RBC 2.87 L, Hgb 6.1 L, Hct 22.4 L, MCV 78.0 L, MCH 21.3 L, MCHC 27.2 L, RDW Std Deviation 50.1 H, RDW Coeff of Galo 17.7 H, Plt Count 137 L, MPV 9.2 11/05/22 10:15: PT 16.9 H, INR 1.4 11/05/22 16:32: POC Glucose 110 H 11/05/22 21:05: WBC 5.3, RBC 3.56 L, Hgb 8.1 L, Hct 28.5 L, MCV 80.1, MCH 22.8 L, MCHC 28.4 L, RDW Std Deviation 51.3 H, RDW Coeff of Galo 17.6 H, Plt Count 138 L, MPV 10.1, Potassium 3.3 L, Troponin I High Sens 81 H 11/05/22 21:35: POC Glucose 198 H 11/05/22 23:00: Troponin I High Sens 83 H 11/06/22 03:24: WBC 4.4, RBC 3.44 L, Hgb 7.7 L, Hct 26.8 L, MCV 77.9 L, MCH 22.4 L, MCHC 28.7 L, RDW Std Deviation 49.2 H, RDW Coeff of Galo 17.8 H, Plt Count 132 L, MPV 9.3, Immature Gran % (Auto) 0.500, Neut % (Auto) 71.0 H, Lymph % (Auto) 15.6 L, [place] % (Auto) 9.7, Eos % (Auto) 2.5, Baso % (Auto) 0.7, Absolute Neuts (auto) 3.1, Absolute Lymphs (auto) 0.69 L, Nucleated RBC % 0, Sodium 142, Potassium 3.2 L, Chloride 105, Carbon Dioxide 30.0, Anion Gap 7, BUN 12, Creatinine 0.99, Estim Creat Clear Calc 60.45, Est GFR (MDRD) Af Amer 95, Est GFR (MDRD) Non-Af 78, BUN/Creatinine Ratio 12.2, Glucose 166 H, Calcium 8.2 L, Troponin I High Sens 102 H Radiography Diagnostic Testing: Radiology Impression Chest/Abdomen/Pelvis CT 11/05/22 08:38 IMPRESSION: Thickening of the distal portion of the stomach. Findings suggestive of a 5 mm hypodensity in the posterior aspect of the left lobe of the liver suggestive of a small cyst. Mild cardiomegaly. Electronically Signed: Cosmo Malone MD at 12:52 EDT , Assessment & Plan Assessment/Plan (1) Melena: PLAN: Patient with no complaints from the procedure Dr. Faust will contact the patient as an outpatient with pathology results We will follow as needed Charges/Coding Visit Charges Inpatient E&M: 61627 Subs Hosp L1
[2022-11-06 08:42] LABS: Bedside Glucose 158 mg/dL (74-106)
[2022-11-06 10:20] LABS: Pathologist Review Reviewed
[2022-11-06] MEDS: Insulin Glargine-YFGN 100 UNIT/ML Pen 20 UNIT SC ×2 (10:40→21:54)
[2022-11-06] MEDS: Potassium Chloride Oral Tablet 20 MEQ 40 MEQ PO (10:40)
[2022-11-06] MEDS: 0.9% Saline Lock 10 ML Syringe IV ×2 (10:46→15:22)
--- NOTE | 2022-11-06 11:50 | CASEMGMT ---
RN CM Face to Face with patient for initial transition planning/care coordination assessment. RN CM introduced self and role at [facility]. Patient lying in bed, alert and oriented. Patient willing to participate in assessment and is able to answer all questions appropriately. Care providers, pharmacy, and demographics verified. Patient wishes to discharge home, will monitor for HHC pending progress with therapy. Patient states he has no further needs or concerns at this time. CM to follow for discharge planning needs that may arise. PCP: Sukumar Specialists: Orlando, embalmer assistant; Govind, surgeon; Jamie, communication engineer; Preferred Pharmacy: [facility] Insurance: [facility], [facility] Prescription Benefit: yes Living Will/HPOA: yes, Ila Devi LNOK: , daughter Living Arrangements: Patient lives with in a single story home with ramp to enter the home. Patient states he is independent at home. Transportation: self, daughter DME/HHC: Patient has tub bench, cane, walker, rollator, wheelchair, grab bars, cpap, nebulizer, and pulse ox at home. Patient has been to TCU in the past. Patient has had [facility] HHC in the past. Will monitor for HHC and home oxygen at discharge. Patient prefers [employer] for DME. Disposition Plan: Patient to discharge home with family support and follow-up plans in place. Autumn SHEIKH, RN, CM
--- NOTE | 2022-11-06 11:57 | CHAPLAIN ---
Type of Pastoral Visit _x__ Initial Visit ___ Follow-up Visit ___ On-call Visit ___ General Patient Visit ___ Spiritual Assessment ___ Family Conference ___ Bereavement ___ Rapid Response ___ Code Blue ___ Other (describe below) Pastoral Care Referral From _x__ Patient ___ Family ___ Nurse ___ Physician ___ Die Maintenance Technician ___ Reservoir Engineering Manager ___ Other (describe below) Sacrament/Intervention _x__ Active listening ___ Anointing ___ Mandaeism ___ Bereavement ___ Communion _x__ Cori exploration ___ _x__ Life review _x__ Prayer ___ Reconciliation ___ Sacrament of Sick _x__ Supportive presence ___ Wedding ___ Other (describe below) Pastoral Comments patient is welcoming and describes his situation which includes waiting for biopsy results that may determine cancer diagnosis; discussion of how pt is handling the situation; pt is reflective about God and that it is out of my hands and I have to accept His plan; pt shares concerns about his and her declining health; pt also has lost three siblings in the last year so it has been a difficult season for him; pt is thankful for a daughter that moved in with the couple for caregiving; pt is not connected to a baptist community at this time but still has cori in God; pt welcomes presence and prayers for support
[2022-11-06 12:19] LABS: Bedside Glucose 159 mg/dL (74-106)
--- NOTE | 2022-11-06 12:52 | PN_ITS ---
Subjective Subjective Patient seen and examined. He had no active complaints. He was admitted for anemia and shortness of breath. He had come in for a colonoscopy by general surgery, and was found to have anemia afterwards, with Hb of 6.1. He was transfused with 2 units of PRBCs. He feels better this morning. He denies fever, chills, cough, chest pain, palpitations, dizziness, nausea, vomiting or any other symptoms. Review of systems is otherwise negative. Objective Data Objective Data Vital Signs: Vital Signs Temp Pulse Resp BP Pulse Ox O2 Del Method O2 Flow Rate 98.1 F 74 18 134/73 H 95 Nasal Cannula 2 11/06/22 08:35 11/06/22 08:35 11/06/22 08:35 11/06/22 08:35 11/06/22 08:35 11/06/22 08:35 11/06/22 08:35 Oxygen Flow Rate (L/min) 2 Oxygen Delivery Method Nasal Cannula Weight: 273 lb Body Mass Index (BMI) 41.5 Intake & Output: Intake and Output for Last 24 Hours 11/04/22 11/05/22 11/06/22 23:59 23:59 23:59 Intake Total 3404.08 / 3404.08 610 / 610 Output Total 600 / 600 800 / 800 Balance 2804.08 / 2804.08 -190 / -190 Lab / Micro Data 11/06/22 03:24 11/06/22 03:24 Labs: Laboratory Results - last 24 hr 11/05/22 08:53: Diff Path Review Reviewed, Magnesium 1.9, Iron 19 L, TIBC 401, Iron Saturation 4.7 L, Ferritin 11 L, Lactate Dehydrogenase 222 11/05/22 09:21: Blood Type AB POSITIVE, Antibody Screen NEGATIVE, Crossmatch See Detail 11/05/22 16:32: POC Glucose 110 H 11/05/22 21:05: WBC 5.3, RBC 3.56 L, Hgb 8.1 L, Hct 28.5 L, MCV 80.1, MCH 22.8 L , MCHC 28.4 L, RDW Std Deviation 51.3 H, RDW Coeff of Galo 17.6 H, Plt Count 138 L, MPV 10.1, Potassium 3.3 L, Troponin I High Sens 81 H 11/05/22 21:35: POC Glucose 198 H 11/05/22 23:00: Troponin I High Sens 83 H 11/06/22 03:24: WBC 4.4, RBC 3.44 L, Hgb 7.7 L, Hct 26.8 L, MCV 77.9 L, MCH 22.4 L, MCHC 28.7 L, RDW Std Deviation 49.2 H, RDW Coeff of Galo 17.8 H, Plt Count 132 L, MPV 9.3, Immature Gran % (Auto) 0.500, Neut % (Auto) 71.0 H, Lymph % (Auto) 15.6 L, [place] % (Auto) 9.7, Eos % (Auto) 2.5, Baso % (Auto) 0.7, Absolute Neuts (auto) 3.1, Absolute Lymphs (auto) 0.69 L, Nucleated RBC % 0, Sodium 142, Potassium 3.2 L, Chloride 105, Carbon Dioxide 30.0, Anion Gap 7, BUN 12, Creatinine 0.99, Estim Creat Clear Calc 60.45, Est GFR (MDRD) Af Amer 95, Est GFR (MDRD) Non-Af 78, BUN/Creatinine Ratio 12.2, Glucose 166 H, Calcium 8.2 L, Troponin I High Sens 102 H 11/06/22 08:23: POC Glucose 158 H 11/06/22 12:01: POC Glucose 159 H Radiography Diagnostic Testing: Radiology Impression Chest/Abdomen/Pelvis CT 11/05/22 08:38 IMPRESSION: Thickening of the distal portion of the stomach. Findings suggestive of a 5 mm hypodensity in the posterior aspect of the left lobe of the liver suggestive of a small cyst. Mild cardiomegaly. Electronically Signed: Cosmo Malone MD at 12:52 EDT , Echocardiogram 11/06/22 05:55 Interpretation Summary The estimated ejection fraction is 55 %. Trivial mitral valve insufficiency. Ordering Physician: Belgica Kitchen Referring Physician: Tomás Patino Performed By: Ngozi Dillard RDCS, RVT Physical Exam Const alert, oriented x3 and no apparent distress General Appearance: cooperative HEENT normocephalic and moist oral mucous membranes Eyes PERRL and EOMs intact bilaterally Neck no lymphadenopathy, supple and no JVD Lymph Lymphatic: no lymphadenopathy noted and no lymphedema noted Resp Resp Narrative: mildly diminished breath sounds bibasally, no wheezes or crackles. on 2L of oxygen by nasal canula. Cardio regular rate, regular rhythm, S1 normal heart sound, S2 normal heart sound and no murmurs GI normal to inspection, nondistended, normoactive bowel sounds, soft to palpation and non-tender Extremity normal capillary refill, no clubbing, cyanosis or edema and no calf tenderness Skin General Skin Exam: no breakdown Neuro CN's II-XII intact bilaterally and no focal motor deficits Motor Exam: strength 5/5 throughout Psych thought process normal, cooperative and affect normal Appearance: appropriate Assessment & Plan Assessment/Plan (1) Melena: (2) Blood in stool: (3) Dyspnea on exertion: PLAN: Plan #Acute blood loss anemia due to GI bleed * had gastric polyps resected recently during EGD * Hb after EGD was 5.8, and on recheck was 6.1 * s/p transfusion of 2 units of PRBCs * will monitor HB * n pantoprazole * #Gastric polyps * Had gastric polyps resected yesterday. CT of the chest abdomen and pelvis with p.o. and IV contrast done showed thickening of the distal portion of the stomach but no evidence of metastatic malignancy. * Management as per general surgery. * #Elevated troponins * Initial troponin was in the 80s and trended up slightly to 102. Likely due to acute on chronic anemia and resultant demand ischemia. Patient denies any chest pain. 2D echo done today showed EF of 55% with normal diastolic function and no regional wall motion abnormalities noted as well as presence of ICD or pacer leads in the right ventricle and right atrium * Will hold off on cardiology consult for now as there is a clear explanation f or upward trend in troponin * #Hypokalemia: potassium is 3.2 today. Will replace and trend. #THrombocytopenia: platelets are 132. Etiology unclear. This appears to be chronic, since March 2022. Will trend and monitor. #History of DVT: On Coumadin which is currently on hold. Will resume when okay with general surgery. #CAD * Has a history of ischemic cardiomyopathy and had diagnostic cardiac cath done in 3 which showed EF of 35% and an occluded RCA with good collateral flow, moderate left circumflex disease and moderate LAD disease and also showed inferior mid akinesis and moderate global hypokinesis. * On Coreg and Lasix as well as Imdur. * * #Type 2 diabetes mellitus: * On Lantus 30 units twice daily. Insulin sliding scale. Checks ACHS. Lantus dose was decreased to 20 units bid on admission * Also on dapagliflozin and Trulicity as well as gabapentin for neuropathy. * * #Hyperlipidemia: on statin #Restless leg syndrome: on ropinirole DVT prophylaxis: SCDs Charges/Coding Visit Charges Inpatient E&M: 22241 Subs Hosp L2
--- NOTE | 2022-11-06 13:16 | DCINST_ITS ---
Discharge Instructions Diet Discharge Diet: Light diet - advance as tolerated Activity Discharge Activity: Return to Normal Activity Follow Up Care Please Follow Up With: Jewell Faust MD When: 1 week follow-up from scopes and check hemoglobin. Please contact our office to schedule an appointment at [phone] Test Results: Test results from this visit will be discussed in further detail at your follow- up appointment, if applicable. Discharge Plan Admission Admit Date/Time: 11/05/22 13:00 Attending Provider: Geraldine Parisi Primary Care Provider: Tomás Patino Consulting Providers: Nathan Ramirez Discharge Orders/Prescriptions Prescriptions: New pantoprazole [Protonix] 40 mg tablet,delayed release (DR/EC) 40 mg PO DAILY Qty: 30 2RF sucralfate [Carafate] 1 gram tablet 1 g PO TID 14 Days Qty: 42 0RF Held warfarin 6 mg tablet 6 mg PO .every day Hold Instructions: Resume on 12/04/22. Hold Coumadin until following the repeat upper scope in 1 month No Action Farxiga 10 mg tablet 10 mg PO DAILY potassium chloride [Klor-Con M20] 20 mEq tablet,ER particles/crystals 20 meq PO DAILY Qty: 30 0RF furosemide [Lasix] 80 mg tablet 80 mg PO DAILY insulin lispro [Humalog KwikPen Insulin] 100 unit/mL insulin pen 21 unit subcut TID peg 3350-electrolytes [Golytely] 236-22.74-6.74 -5.86 gram recon soln 240 ml PO Q10M Qty: 4000 0RF Rx Instructions: until fecal effluent is clear latanoprost 2.5 ML drops 1 drp EACH EYE TID ropinirole 0.5 mg tablet 1 mg PO QHS ondansetron 4 mg Tablet,Disintegrating 4 mg PO Q6H PRN (Reason: Nausea) gabapentin 600 mg Tablet 600 mg PO TID 30 Days Qty: 90 0RF albuterol sulfate 2.5 mg /3 mL (0.083 %) Solution For Nebulization 2.5 mg inhalation Q4H.RT PRN (Reason: WHEEZING) 30 Days Qty: 360 0RF albuterol sulfate 90 mcg/actuation HFA aerosol inhaler 2 puff inhalation Q6H PRN (Reason: shortness of breath or wheezing) Qty: 8.5 0RF Trulicity 3 mg/0.5 mL Pen Injector 3 mg SUBCUT QWEEK insulin glargine-yfgn 100 unit/mL (3 mL) Insulin Pen 30 unit subcut BID nitroglycerin 0.4 mg tablet, sublingual 0.4 mg SL Q5M PRN (Reason: Chest Pain) Qty: 25 3RF carvedilol 6.25 mg tablet 6.25 mg PO BID Qty: 180 3RF Rx Instructions: must administer with a meal/food isosorbide mononitrate 60 mg tablet extended release 24 hr 60 mg PO DAILY Qty: 90 3RF rosuvastatin 40 mg tablet 40 mg PO QHS Qty: 90 3RF Referrals / Follow Up: Tomás Patino MD [Primary Care Provider] -
[2022-11-06] MEDS: Furosemide 20 MG Tablet PO (14:04)
[2022-11-06 14:17] LABS: BNP,B-Type NATRIURETIC PEPTIDE 344.2 pg/mL (0-100)
[2022-11-06] MEDS: Ondansetron 4 MG/2 ML Vial IV (15:21)
[2022-11-06 16:41] LABS: Bedside Glucose 198 mg/dL (74-106)
[2022-11-06] MEDS: Insulin Lispro 100 UNIT/ML INSULN.PEN 10 UNIT SC (17:34)
--- NOTE | 2022-11-06 18:37 | NURSING ---
Reviewed charting with Brody Elliott RN
--- NOTE | 2022-11-06 21:28 | PCM.HOSP.N ---
Hospitalist Note Patient from review of records on lasix 80 mg outpatient. Had been dosed with lasix 20 mg IV x 1 evening prior secondary to overload with PRBC administration. Currently on 20 mg orally. Will d/c this and transition to home dose and given an additional 60 mg po x 1 now as patient still with overload symptoms.
[2022-11-06] MEDS: Atorvastatin Calcium 80 MG Tablet PO (21:41)
[2022-11-06] MEDS: Pramipexole Di-HCl 0.5 MG Tablet PO (21:41)
[2022-11-06] MEDS: Albuterol IH (6.7 GM) 1 PUFF INHALER 2 PUFF INHALATION (21:43)
[2022-11-06] MEDS: Furosemide 20 MG Tablet 60 MG PO (21:50)
[2022-11-06] MEDS: Albuterol 2.5 MG/3 ML VIAL.NEB. INHALATION (22:38)
[2022-11-06 23:02] LABS: Bedside Glucose 203 mg/dL (74-106)
[2022-11-07] VITALS (12 sets, daily range): BP systolic 127–136; BP diastolic 69–86; PULSE 78–88; RESP 12–20; TEMP 36.5–36.8; O2SAT 9–100
--- NOTE | 2022-11-07 01:00 | RAD_ITS ---
EXAM: XR Chest 2 Views INDICATION: Male, 77 years old. Dyspnea TECHNIQUE: PA and lateral views COMPARISON: 05/23/2022 FINDINGS: DEVICES: None LUNGS: Mild bilateral perihilar interstitial infiltration, new from prior imaging. No concerning pulmonary nodule. Likely small left pleural effusion, prior imaging.. MEDIASTINUM: Mild cardiomegaly. Left subclavian ICD device in place. Mediastinal silhouette is within normal limits.. Mild central pulmonary vascular congestion. Consultation the aortic arch.. . SKELETAL STRUCTURES: No acute skeletal abnormality. Mild multilevel degenerative changes in the spine. UPPER ABDOMEN: Unremarkable RAD/Chest PA and Lateral IMPRESSION: Mild congestive heart failure with small left pleural effusion, new from prior imaging. Electronically Signed: Barry Sepulveda MD at 1:56 EDT ,
[2022-11-07] MEDS: Albuterol 2.5 MG/3 ML VIAL.NEB. INHALATION ×2 (02:30→20:00)
[2022-11-07 04:07] LABS: Haptoglobin 99 mg/dL (34-355)
[2022-11-07] MEDS: LORazepam 2 MG/ML Syringe 0.5 MG IV (04:23)
[2022-11-07] MEDS: Gabapentin 600 MG Tablet PO ×3 (05:48→21:23)
[2022-11-07 06:16] LABS: Absolute Lymphocyte Count 0.61 X10^3/uL (0.83-4.51); Absolute Neutrophil Count 4.6 X10^3/uL (2.0-7.7); Basophil# 0.04 X10^3/uL; Basophil% 0.7 % (0-1); Eosinophil# 0.09 X10^3/uL; Eosinophils% 1.5 % (0-5); Hematocrit 29.6 % (40-54); Hemoglobin 8.2 g/dL (13.0-16.5); Lymphocyte # 0.61 X10^3/ul (0.83-4.51); Lymphocyte % 10.5 % (19-41); Mean Corp Hgb Conc 27.7 g/dL (32-36); Mean Corpuscular Volume 79.6 fL (80-94); Mean Platelet Vol. 9.6 fl (6.2-12.0); Monocyte# 0.49 X10^3/uL; Monocyte% 8.4 % (0-10); NRBC Flagged by Analyzer 0 % (0-5); Neutrophil # 4.56 X10^3/uL (2.7-7.7); Neutrophil % 78.4 % (47-70); Platelet Count 156 K/mm3 (150-450); RBC Distribution Width CV 18.1 % (11.6-14.6); RBC Distribution Width SD 51.6 fl (35.1-43.9); Red Blood Count 3.72 M/mm3 (4.6-6.2); White Blood Count 5.8 K/mm3 (4.4-11.0)
[2022-11-07 06:37] LABS: Anion Gap 4 (5-15); BUN 11 mg/dL (7-18); BUN/Creat Ratio 10.4 RATIO (10-20); Calcium,Total 8.2 mg/dL (8.5-10.1); Chloride 106 mmol/L (98-107); Creatinine, Serum 1.06 mg/dL (0.70-1.30); EST Glomerular Filtration Rate 72 mL/min (>60); Est Glom Filt Rate - Afr Amer 87 mL/min (>60); Estimated Creatinine Clearance 56.46 ml/min; Glucose 193 mg/dL (74-106); Potassium 3.8 mmol/L (3.5-5.1); Sodium Level 139 mmol/L (136-145)
[2022-11-07] MEDS: Budesonide Respules 0.5 MG/2 ML AMPUL.NEB. INHALATION ×2 (07:19→20:00)
[2022-11-07 08:05] LABS: Bedside Glucose 175 mg/dL (74-106)
[2022-11-07] MEDS: Insulin Lispro 100 UNIT/ML INSULN.PEN 10 UNIT SC ×3 (08:53→17:07)
[2022-11-07] MEDS: 0.9% Saline Lock 10 ML Syringe IV (08:57)
[2022-11-07] MEDS: Furosemide 80 MG Tablet PO (08:57)
--- NOTE | 2022-11-07 09:18 | CASEMGMT ---
Discharge Planning HH list created and given to RN CARL. Melissa Braswell, Discharge Planning Asst.
--- NOTE | 2022-11-07 10:14 | CASEMGMT ---
RN CM in to discuss needs at discharge with patient. RN CM discuss HHC at discharge, patient agreeable. A list of HHC providers including quality and resource use data and consistent with the patient?s preferred geographical region, medical needs, and insurance network were provided from the [employer] Guide. Patient prefers [facility]. RN CM sent referral to [facility] and they are able to accept the patient with planned start of care for Thursday. RN CM updated the patient. Antonella had no further questions or concerns at this time.
[2022-11-07] MEDS: Insulin Glargine-YFGN 100 UNIT/ML Pen 20 UNIT SC ×2 (10:37→21:23)
--- NOTE | 2022-11-07 11:34 | PN_ITS ---
Subjective Subjective Patient seen and examined. He had no active complaints. His breathing is improving, though he is not back at his baseline. He had an uneventful night, and review of systems is otherwise negative. He has remained hemodynamically stable. Objective Data Objective Data Vital Signs: Vital Signs Temp Pulse Resp BP Pulse Ox O2 Del Method O2 Flow Rate 98.1 F 85 18 132/73 H 99 Nasal Cannula 2 11/07/22 08:50 11/07/22 08:50 11/07/22 08:50 11/07/22 08:50 11/07/22 09:39 11/07/22 08:50 11/07/22 09:39 FiO2 30 11/07/22 04:53 Oxygen Flow Rate (L/min) 2 Oxygen Delivery Method Nasal Cannula Weight: 273 lb Body Mass Index (BMI) 41.5 Intake & Output: Intake and Output for Last 24 Hours 11/05/22 11/06/22 11/07/22 23:59 23:59 23:59 Intake Total 3404.08 / 3404.08 1010 / 1010 220 / 220 Output Total 600 / 600 800 / 1400 600 / 600 Balance 2804.08 / 2804.08 210 / -390 -380 / -380 Lab / Micro Data 11/07/22 05:29 11/07/22 05:29 Labs: Laboratory Results - last 24 hr 11/05/22 21:05: Haptoglobin 99 11/06/22 03:24: B-Natriuretic Peptide 344.2 H 11/06/22 12:01: POC Glucose 159 H 11/06/22 16:17: POC Glucose 198 H 11/06/22 21:51: POC Glucose 203 H 11/07/22 05:29: WBC 5.8, RBC 3.72 L, Hgb 8.2 L, Hct 29.6 L, MCV 79.6 L, MCH 22.0 L, MCHC 27.7 L, RDW Std Deviation 51.6 H, RDW Coeff of Galo 18.1 H, Plt Count 156, MPV 9.6, Immature Gran % (Auto) 0.500, Neut % (Auto) 78.4 H, Lymph % (Auto) 10.5 L, [place] % (Auto) 8.4, Eos % (Auto) 1.5, Baso % (Auto) 0.7, Absolute Neuts (auto) 4.6, Absolute Lymphs (auto) 0.61 L, Nucleated RBC % 0, Sodium 139, Po tassium 3.8, Chloride 106, Carbon Dioxide 29.0, Anion Gap 4 L, BUN 11, Creati nine 1.06, Estim Creat Clear Calc 56.46, Est GFR (MDRD) Af Amer 87, Est GFR (MDRD) Non-Af 72, BUN/Creatinine Ratio 10.4, Glucose 193 H, Calcium 8.2 L 11/07/22 07:47: POC Glucose 175 H Radiography Diagnostic Testing: Radiology Impression Echocardiogram 11/06/22 05:55 Interpretation Summary The estimated ejection fraction is 55 %. Trivial mitral valve insufficiency. Ordering Physician: Belgica Kitchen Referring Physician: Tomás Patino Performed By: Ngozi Dillard, RDCS, RVT Chest X-Ray 11/07/22 01:00 IMPRESSION: Mild congestive heart failure with small left pleural effusion, new from prior imaging. Electronically Signed: Barry Sepulveda MD at 1:56 EDT , Physical Exam Const alert, oriented x3 and no apparent distress General Appearance: cooperative, comfortable, well kempt and well developed HEENT normocephalic, head/scalp atraumatic, hearing grossly normal bilaterally, nasal mucous membranes and turbinates normal and moist oral mucous membranes Eyes PERRL, EOMs intact bilaterally and conjunctivae normal Neck full ROM, no lymphadenopathy, supple and no JVD Lymph Lymphatic: no lymphadenopathy noted and no lymphedema noted Chest inspection of chest normal Resp normal respiratory effort, normal air movement, no use of accessory muscles and clear to auscultation bilaterally Resp Narrative: mildly diminished breath sounds bibasally, no wheezes or crackles. on 2L of oxygen by nasal canula. Cardio regular rate, regular rhythm, S1 normal heart sound, S2 normal heart sound, no murmurs and peripheral pulses 2+ throughout GI normal to inspection, nondistended, normoactive bowel sounds, soft to palpation, non-tender and non-distended Back/Spine normal ROM Extremity normal to inspection, full ROM, normal capillary refill, no clubbing, cyanosis or edema, no calf tenderness and no pedal edema Skin no rashes or lesions noted General Skin Exam: no breakdown Neuro CN's II-XII intact bilaterally and no focal motor deficits Motor Exam: strength 5/5 throughout Psych mental status grossly normal, thought process normal, cooperative and affect normal Appearance: appropriate Assessment & Plan Assessment/Plan (1) Melena: (2) Blood in stool: (3) Dyspnea on exertion: PLAN: Plan #Acute blood loss anemia due to GI bleed * had gastric polyps resected recently during EGD * Hb after EGD was 5.8, and on recheck was 6.1 * s/p transfusion of 2 units of PRBCs * Hb today is 8.2. * on PPI * #Gastric polyps * Had gastric polyps resected on day of admission. CT of the chest abdomen and pelvis with p.o. and IV contrast done showed thickening of the distal portion of the stomach but no evidence of metastatic malignancy. * Management as per general surgery. * per GI, he had multiple areas of erosion, so to keep off coumadin for now. * #Elevated troponins * Initial troponin was in the 80s and trended up slightly to 102. Likely due to acute on chronic anemia and resultant demand ischemia. Patient denies any chest pain. 2D echo done showed EF of 55% with normal diastolic function and no regional wall motion abnormalities noted as well as presence of ICD or pacer leads in the right ventricle and right atrium * Will hold off on cardiology consult for now as there is a clear explanation for upward trend in troponin * #Hypokalemia: resolved. #THrombocytopenia: resolved. Platelets are 156 today #History of DVT: * On Coumadin which is currently on hold. * Per general surgery, to continue holding Coumadin. He will need to be scoped again by general surgery and so Coumadin to be held until okay to resume per general surgery. * This will be decided on outpatient basis. * #CAD * Has a history of ischemic cardiomyopathy and had diagnostic cardiac cath done in 523 which showed EF of 35% and an occluded RCA with good collateral flow, moderate left circumflex disease and moderate LAD disease and also showed inferior mid akinesis and moderate global hypokinesis. * On Coreg and Lasix as well as Imdur. * * #Type 2 diabetes mellitus: * On Lantus 30 units twice daily. Insulin sliding scale. Checks ACHS. Lantus dose was decreased to 20 units bid on admission * Also on dapagliflozin and Trulicity as well as gabapentin for neuropathy. * * #Hyperlipidemia: on statin #Restless leg syndrome: on ropinirole DVT prophylaxis: SCDs Charges/Coding Visit Charges Inpatient E&M: 66433 Subs Hosp L2
[2022-11-07 12:30] LABS: Bedside Glucose 211 mg/dL (74-106)
[2022-11-07 16:46] LABS: Bedside Glucose 206 mg/dL (74-106)
[2022-11-07] MEDS: Atorvastatin Calcium 80 MG Tablet PO (21:23)
[2022-11-07] MEDS: Pramipexole Di-HCl 0.5 MG Tablet PO (21:23)
[2022-11-07 22:28] LABS: Bedside Glucose 250 mg/dL (74-106)
[2022-11-08] VITALS (14 sets, daily range): BP systolic 99–141; BP diastolic 68–88; PULSE 79–88; RESP 16–20; TEMP 36.3–36.9; O2SAT 92–100
--- NOTE | 2022-11-08 02:32 | CPS ---
Home Cpap/Bipap unit brought in from home, It is set up and ready for use.
[2022-11-08] MEDS: Gabapentin 600 MG Tablet PO ×3 (06:47→21:59)
[2022-11-08] MEDS: Budesonide Respules 0.5 MG/2 ML AMPUL.NEB. INHALATION ×2 (07:22→19:27)
[2022-11-08] MEDS: Furosemide 80 MG Tablet PO (07:57)
[2022-11-08] MEDS: Insulin Glargine-YFGN 100 UNIT/ML Pen 20 UNIT SC ×2 (07:58→21:59)
[2022-11-08] MEDS: Insulin Lispro 100 UNIT/ML INSULN.PEN 10 UNIT SC ×2 (07:58→16:30)
[2022-11-08] MEDS: Insulin Lispro 100 UNIT/ML INSULN.PEN SC ×4 (07:59→21:59)
[2022-11-08 08:15] LABS: Absolute Lymphocyte Count 0.52 X10^3/uL (0.83-4.51); Absolute Neutrophil Count 3.6 X10^3/uL (2.0-7.7); Basophil# 0.04 X10^3/uL; Basophil% 0.8 % (0-1); Eosinophil# 0.14 X10^3/uL; Eosinophils% 2.9 % (0-5); Hematocrit 30.6 % (40-54); Hemoglobin 8.6 g/dL (13.0-16.5); Lymphocyte # 0.52 X10^3/ul (0.83-4.51); Lymphocyte % 10.9 % (19-41); Mean Corp Hgb Conc 28.1 g/dL (32-36); Mean Corpuscular Hgb 22.3 pg (27.0-32.0); Mean Corpuscular Volume 79.5 fL (80-94); Monocyte# 0.43 X10^3/uL; Monocyte% 9.1 % (0-10); NRBC Flagged by Analyzer 0 % (0-5); Neutrophil % 75.9 % (47-70); POSITIVE DIFFERENTIAL YES; Platelet Count 144 K/mm3 (150-450); RBC Distribution Width CV 18.5 % (11.6-14.6); RBC Distribution Width SD 52.2 fl (35.1-43.9); Red Blood Count 3.85 M/mm3 (4.6-6.2); White Blood Count 4.8 K/mm3 (4.4-11.0)
[2022-11-08 08:22] LABS: Differential Indicated SCAN CRITERIA MET
[2022-11-08 08:34] LABS: Anion Gap 3 (5-15); BUN 14 mg/dL (7-18); BUN/Creat Ratio 14.4 RATIO (10-20); Calcium,Total 8.3 mg/dL (8.5-10.1); Chloride 105 mmol/L (98-107); Creatinine, Serum 0.97 mg/dL (0.70-1.30); EST Glomerular Filtration Rate 79 mL/min (>60); Est Glom Filt Rate - Afr Amer 96 mL/min (>60); Glucose 216 mg/dL (74-106); Potassium 3.4 mmol/L (3.5-5.1); Sodium Level 137 mmol/L (136-145)
[2022-11-08 08:58] LABS: Lymphocyte 0.52 % (19-41)
[2022-11-08 09:06] LABS: Bedside Glucose 189 mg/dL (74-106)
[2022-11-08] MEDS: Nitroglycerin (INPATIENT USE) 0.4 MG TAB.SUBL SL ×2 (11:09→11:24)
[2022-11-08 11:27] LABS: Troponin-I HS 102 pg/mL (3.0-78.0)
[2022-11-08 12:17] LABS: Bedside Glucose 297 mg/dL (74-106)
[2022-11-08 13:02] LABS: Troponin-I HS 97 pg/mL (3.0-78.0)
[2022-11-08] MEDS: Acetaminophen 325 MG Tablet 650 MG PO (14:03)
--- NOTE | 2022-11-08 14:19 | PN_ITS ---
Subjective Subjective Patient seen and examined. He had been weaned off oxygen. He started complaining of chest pain today. Chest pain was not pressure-like, and didn't radiate. He had no complaints otherwise. Review of systems was otherwise negative. Objective Data Objective Data Vital Signs: Vital Signs Temp Pulse Resp BP Pulse Ox O2 Del Method O2 Flow Rate 97.3 F L 88 16 108/68 99 Nasal Cannula 2 11/08/22 08:00 11/08/22 11:30 11/08/22 11:30 11/08/22 11:30 11/08/22 11:30 11/08/22 11:30 11/08/22 11:30 FiO2 30 11/07/22 04:53 Oxygen Flow Rate (L/min) 2 Oxygen Delivery Method Nasal Cannula Weight: 273 lb Body Mass Index (BMI) 41.5 Intake & Output: Intake and Output for Last 24 Hours 11/06/22 11/07/22 11/08/22 23:59 23:59 23:59 Intake Total 1010 / 1010 1320 / 1520 520 / 520 Output Total 800 / 1400 2500 / 2850 1650 / 1650 Balance 210 / -390 -1180 / -1330 -1130 / -1130 Lab / Micro Data 11/08/22 06:45 11/08/22 06:45 Labs: Laboratory Results - last 24 hr 11/07/22 16:27: POC Glucose 206 H 11/07/22 21:18: POC Glucose 250 H 11/08/22 06:45: WBC 4.8, RBC 3.85 L, Hgb 8.6 L, Hct 30.6 L, MCV 79.5 L, MCH 22.3 L, MCHC 28.1 L, RDW Std Deviation 52.2 H, RDW Coeff of [place] 18.5 H, Plt Count 144 L, MPV 10.0, Immature Gran % (Auto) 0.400, Neut % (Auto) 75.9 H, Lymph % (Auto) 10.9 L, [place] % (Auto) 9.1, Eos % (Auto) 2.9, Baso % (Auto) 0.8, Absolute Neuts (auto) 3.6, Absolute Lymphs (auto) 0.52 L, Lymphocytes % (Manual) 0.52 L, Nucleated RBC % 0, Differential Comment COMMENT, Sodium 137, Potassium 3.4 L, Chloride 105, Carbon Dioxide 29.0, Anion Gap 3 L, BUN 14, Creatinine 0.97, Estim Creat Clear Calc 61.70, Est GFR (MDRD) Af Amer 96, Est GFR (MDRD) Non-Af 79, BUN/Creatinine Ratio 14.4, Glucose 216 H, Calcium 8.3 L 11/08/22 07:53: POC Glucose 189 H 11/08/22 11:03: Troponin I High Sens 102 H 11/08/22 11:21: POC Glucose 297 H 11/08/22 12:35: Troponin I High Sens 97 H Physical Exam Const alert, oriented x3 and no apparent distress Constitutional Narrative: General Appearance: cooperative, comfortable, well kempt and well developed HEENT normocephalic, head/scalp atraumatic, hearing grossly normal bilaterally, nasal mucous membranes and turbinates normal and moist oral mucous membranes Eyes PERRL, EOMs intact bilaterally and conjunctivae normal Neck full ROM, no lymphadenopathy, supple and no JVD Lymph Lymphatic: no lymphadenopathy noted and no lymphedema noted Chest inspection of chest normal Resp normal respiratory effort, normal air movement, no use of accessory muscles and clear to auscultation bilaterally Resp Narrative: mildly diminished breath sounds bibasally, no wheezes or crackles. on 2L of oxygen by nasal canula. Cardio regular rate, regular rhythm, S1 normal heart sound, S2 normal heart sound, no murmurs and peripheral pulses 2+ throughout GI normal to inspection, nondistended, normoactive bowel sounds, soft to palpation, non-tender and non-distended Back/Spine normal ROM and normal to inspection Extremity normal to inspection, full ROM, normal capillary refill, no clubbing, cyanosis or edema, no calf tenderness and no pedal edema Skin no rashes or lesions noted General Skin Exam: no breakdown Neuro CN's II-XII intact bilaterally and no focal motor deficits Motor Exam: strength 5/5 throughout Psych mental status grossly normal, thought process normal, cooperative and affect normal Appearance: appropriate Assessment & Plan Assessment/Plan (1) Melena: (2) Blood in stool: (3) Dyspnea on exertion: PLAN: Plan #Acute blood loss anemia due to GI bleed * had gastric polyps resected recently during EGD * Hb after EGD was 5.8, and on recheck was 6.1 * s/p transfusion of 2 units of PRBCs * Hb today is 8.6. * on PPI * #Gastric polyps * Had gastric polyps resected on day of admission. CT of the chest abdomen and pelvis with p.o. and IV contrast done showed thickening of the distal portion of the stomach but no evidence of metastatic malignancy. * Management as per general surgery. * per GI, he had multiple areas of erosion, so to keep off coumadin for now. * #Elevated troponins * Initial troponin was in the 80s and trended up slightly to 102. Likely due to acute on chronic anemia and resultant demand ischemia. Patient denies any chest pain. 2D echo done showed EF of 55% with normal diastolic function and no regional wall motion abnormalities noted as well as presence of ICD or pacer leads in the right ventricle and right atrium * he developed chest pain today. EKG showed no acute ST changes. * troponins were not elevated * he does have a history of CAD, so discussed with cardiology, and cardiology consult placed. Will await their rec's. * #Hypokalemia: resolved. #THrombocytopenia: resolved. Platelets are 144. #History of DVT: * On Coumadin which is currently on hold. * Per general surgery, to continue holding Coumadin. He will need to be scoped again by general surgery and so Coumadin to be held until okay to resume per general surgery. * This will be decided on outpatient basis. * #CAD * Has a history of ischemic cardiomyopathy and had diagnostic cardiac cath done in 523 which showed EF of 35% and an occluded RCA with good collateral flow, moderate left circumflex disease and moderate LAD disease and also showed inferior mid akinesis and moderate global hypokinesis. * On Coreg and Lasix as well as Imdur. * cardiology consulted today in light of onset of chest pain * #Type 2 diabetes mellitus: * On Lantus 30 units twice daily. Insulin sliding scale. Checks ACHS. Lantus dose was decreased to 20 units bid on admission * Also on dapagliflozin and Trulicity as well as gabapentin for neuropathy. * * #Hyperlipidemia: on statin #Restless leg syndrome: on ropinirole DVT prophylaxis: SCDs Disposition: anticipate dc tomorrow if cardiology doesnt want to do any further workup Charges/Coding Visit Charges Inpatient E&M: 38814 Subs Hosp L2
--- NOTE | 2022-11-08 15:44 | PCM.CONS.C ---
Assessment & Plan Assessment/Plan (1) Chest pain: QUALIFIERS: Chest pain type: unspecified Qualified Code(s): R07.9 - Chest pain, unspecified PLAN: Patient has been having this for some time. He had coronary angiography in July of this year which revealed stable disease. The combination of anemia, hypotension and underlying coronary artery disease can explain the minimal increase in troponin the patient has had. The chest pain appears nonanginal in etiology but even if it is anginal no further work-up is indicated at this time. Patient's 2D echo was reviewed as well. Patient can follow-up with us as an outpatient for his coronary artery disease. Patient does have given her history of DVT that was unprovoked and also PE. If he is going to stay off anticoagulation for prolonged time IVC filter could be considered. We will sign off at this time. Please let us know if we can be of any further assistance. HPI Consult Data Date of Consult: 11/08/22 HPI Narrative Reason for Consultation: Chest pain HPI Narrative: Tim LONG, is a 77 M who presents initially for EGD and colonoscopy. He became hypotensive and was found to have a significant drop in hemoglobin and was admitted to the hospital. He received PRBC transfusions his troponin was mildly elevated and was felt to be because of his hypotension and significant anemia. He was being considered for discharge today but had an episode of chest pain when he moved from his bed to the chair. The chest pain was sharp retrosternal. He has been having this chest pain on and off for some time and it is not always exertional. There are times when he is able to do similar levels of exertion and not have any chest pain as well. He had coronary angiography done in July of this year which showed an occluded RCA and moderate disease in the circumflex and LAD that was unchanged from before. His repeat troponin shows a decreasing trend. Review of systems: All systems reviewed. All else is negative except as in HPI [facility] Medical History (Updated 11/08/22 @ 15:[address] 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 Gastric reflux HFrEF (heart failure with reduced ejection fraction) High cholesterol History of deep vein thrombosis (DVT) of lower extremity History of echocardiogram History of edema History of heart attack History of irregular heartbeat History of non-ST elevation myocardial infarction (NSTEMI) (11/05/16) History of renal disease History of steroid therapy History of stress test Hyperlipidemia Insulin dependent diabetes mellitus Ischemic cardiomyopathy Leg cramps Localized edema Morbid obesity with BMI of 40.0-44.9, adult Nondisp fracture of fifth left metatarsal bone with routine healing Nonrheumatic tricuspid (valve) insufficiency Nonsustained ventricular tachycardia Normocytic anemia 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 Other specified peripheral vascular diseases Paroxysmal atrial flutter Peripheral vascular occlusive disease Restless legs Shortness of breath on exertion Sleep apnea Syncope TIA (transient ischemic attack) Type 2 diabetes mellitus Ulcer of left lower extremity with fat layer exposed Ulcer of right lower extremity Ulcer of right lower extremity with fat layer exposed Ulcer of right lower extremity with fat layer exposed Uncontrolled type 2 diabetes mellitus Walker as ambulation aid Walking difficulty due to ankle and foot Wears dentures Wears glasses Xerosis cutis Home Medications latanoprost 0.005 % eye drops 1 drp EACH EYE TID glaucoma 11/17/18 [History Last Taken 11/04/22 20:00] ropinirole 0.5 mg tablet 1 mg PO QHS legs 12/10/21 [History Last Taken 11/04/22 20:00] ondansetron 4 mg disintegrating tablet 4 mg PO Q6H PRN Nausea 03/16/22 [History Last Taken Unknown] albuterol sulfate 2.5 mg/3 mL (0.083 %) solution for nebulization 2.5 mg (3 mL) inhalation Q4H.RT PRN WHEEZING 30 days #360 mL 04/14/22 [Rx Last Taken 11/04/22 08:00] gabapentin 600 mg tablet 600 mg PO TID 30 days #90 tabs 04/14/22 [Rx Last Taken 11/05/22 08:00] albuterol sulfate 90 mcg/actuation aerosol inhaler 2 puff inhalation Q6H PRN shortness of breath or wheezing #8.5 grams 04/16/22 [Rx Last Taken Unknown] dapagliflozin propanediol 10 mg tablet (Farxiga) 10 mg PO DAILY diabetes 04/18/22 [History Last Taken 11/04/22 08:00] nitroglycerin 0.4 mg sublingual tablet 0.4 mg sublingual Q5M PRN Chest Pain #25 tabs 04/21/22 [Rx Last Taken Unknown] dulaglutide 3 mg/0.5 mL subcutaneous pen injector (Trulicity) 3 mg subcut QWEEK diabetes 05/20/22 [History Last Taken 11/02/22 08:00] potassium chloride 20 mEq tablet,extended release(part/cryst) (Klor-Con M) 20 meq PO DAILY #30 tabs 07/18/22 [Rx Last Taken 11/04/22 08:00] carvedilol 6.25 mg tablet 6.25 mg PO BID This is a dose increase #180 tabs 08/07/22 [Rx Last Taken 11/05/22 08:00] isosorbide mononitrate 60 mg tablet,extended release 24 hr 60 mg PO DAILY #90 tabs 08/07/22 [Rx Last Taken 11/04/22 08:00] rosuvastatin 40 mg tablet 40 mg PO QHS Cholesterol #90 tabs 08/19/22 [Rx Last Taken 11/04/22 20:00] furosemide 80 mg tablet (Lasix) 80 mg PO DAILY water pill 10/30/22 [History Last Taken 11/04/22 08:44] insulin lispro 100 unit/mL subcutaneous pen (Humalog KwikPen (U-100) Insulin) 21 unit subcut TID blood sugar 10/30/22 [History Last Taken 11/04/22 18:00] peg 3350-electrolytes 236 gram-22.74 gram-6.74 gram-5.86 gram solution (Golytely) 240 ml PO Q10M #4,000 mL 10/30/22 [Rx Last Taken 11/04/22 12:00] warfarin 6 mg tablet 6 mg PO .every day 10/30/22 [History Last Taken 11/01/22] insulin glargine-yfgn 100 unit/mL (3 mL) subcutaneous pen 30 unit subcut BID blood sugar 11/04/22 [History Last Taken 11/04/22 20:00] pantoprazole 40 mg tablet,delayed release (Protonix) 40 mg PO DAILY #30 tabs 11/06/22 [Rx Last Taken Unknown] sucralfate 1 gram tablet (Carafate) 1 g PO TID 14 days #42 tabs 11/06/22 [Rx Last Taken Unknown] Allergy/AdvReac Type Severity Reaction Status Date / Time ceftriaxone sodium Allergy Rash Verified 11/05/22 06:52 [From Rocephin] milk AdvReac Diarrhea Verified 11/05/22 06:52 morphine AdvReac hallucinati Verified 11/05/22 06:52 ons Family History Father , Age 78 Prostate cancer Mother , Age 80 CVA (cerebral vascular accident) Sister Congestive heart failure Diabetes Hypertension Hyperlipidemia Atrial fibrillation CAD (coronary artery disease) Cardiac defibrillator in situ Sister Breast cancer Sister Breast cancer Brother CAD (coronary artery disease) Myocardial infarction Diabetes Brother Diabetes Brother , Age 74 COPD (chronic obstructive pulmonary disease) Sister Alive and well Surgical History (Updated 11/04/22 @ 09:47 by Minerva Escalante) H/O colonoscopy with polypectomy (11/2017) History of angioplasty of peripheral vessel History of cardiac catheterization History of coronary artery stent placement (12/15/14) History of detached retina repair History of electrophysiologic study (11/23/02) History of implantable cardiac defibrillator (ICD) (11/19/17) History of implantable cardiac defibrillator (ICD) History of left heart catheterization (12/06/18) History of radiofrequency ablation procedure for cardiac arrhythmia (07/01/11) ICD (implantable cardioverter-defibrillator) in place Social History household members: spouse housing: house current occupational status: retired pets and animals: Yes (2 dogs, 2 cats) Smoking Status: Former smoker pack-years: 20 how long ago did patient quit smokin years ago alcohol intake: never caffeine: Yes Type: coffee Number of servings: 1 Physical Exam Const alert and oriented x3 HEENT normocephalic Eyes no scleral icterus Resp normal respiratory effort Cardio regular rate Extremity no pedal edema Skin no rashes or lesions noted Psych mental status grossly normal Risk Stratification Risk Stratification Applicable: No Charges/Coding Visit Charges Inpatient E&M: 88352 Init Hosp L2 Objective Data Vital Signs: Vital Signs Temp Pulse Resp BP Pulse Ox O2 Del Method O2 Flow Rate 97.3 F L 88 18 108/68 100 Nasal Cannula 2 11/08/22 14:00 11/08/22 14:00 11/08/22 14:00 11/08/22 14:00 11/08/22 14:00 11/08/22 14:00 11/08/22 14:00 FiO2 30 11/07/22 04:53 Oxygen Flow Rate (L/min) 2 Oxygen Delivery Method Nasal Cannula Weight: 273 lb Body Mass Index (BMI) 41.5 Intake & Output: Intake and Output for Last 24 Hours 11/06/22 11/07/22 11/08/22 23:59 23:59 23:59 Intake Total 1010 / 1010 1320 / 1520 820 / 820 Output Total 800 / 1400 2500 / 2850 2450 / 2450 Balance 210 / -390 -1180 / -1330 -1630 / -1630 Lab / Micro Data 11/08/22 06:45 11/08/22 06:45 Labs: Laboratory Results - last 24 hr 11/07/22 16:27: POC Glucose 206 H 11/07/22 21:18: POC Glucose 250 H 11/08/22 06:45: WBC 4.8, RBC 3.85 L, Hgb 8.6 L, Hct 30.6 L, MCV 79.5 L, MCH 22.3 L, MCHC 28.1 L, RDW Std Deviation 52.2 H, RDW Coeff of [place] 18.5 H, Plt Count 144 L, MPV 10.0, Immature Gran % (Auto) 0.400, Neut % (Auto) 75.9 H, Lymph % (Auto) 10.9 L, [place] % (Auto) 9.1, Eos % (Auto) 2.9, Baso % (Auto) 0.8, Absolute Neuts (auto) 3.6, Absolute Lymphs (auto) 0.52 L, Lymphocytes % (Manual) 0.52 L, Nucleated RBC % 0, Differential Comment COMMENT, Sodium 137, Potassium 3.4 L, Chloride 105, Carbon Dioxide 29.0, Anion Gap 3 L, BUN 14, Creatinine 0.97, Estim Creat Clear Calc 61.70, Est GFR (MDRD) Af Amer 96, Est GFR (MDRD) Non-Af 79, BUN/Creatinine Ratio 14.4, Glucose 216 H, Calcium 8.3 L 11/08/22 07:53: POC Glucose 189 H 11/08/22 11:03: Troponin I High Sens 102 H 11/08/22 11:21: POC Glucose 297 H 11/08/22 12:35: Troponin I High Sens 97 H Cardiology Labs/Tests 11/08/22 06:45: WBC 4.8, RBC 3.85 L, Hgb 8.6 L, Hct 30.6 L, MCV 79.5 L, MCH 22.3 L, MCHC 28.1 L, Plt Count 144 L, MPV 10.0, Immature Gran % (Auto) 0.400, Neut % (Auto) 75.9 H, Lymph % (Auto) 10.9 L, [place] % (Auto) 9.1, Eos % (Auto) 2.9, Baso % (Auto) 0.8, Absolute Neuts (auto) 3.6, Lymphocytes % (Manual) 0.52 L, Nucleated RBC % 0, Sodium 137, Potassium 3.4 L, Chloride 105, Carbon Dioxide 29.0, Anion Gap 3 L, BUN 14, Creatinine 0.97, Est GFR (MDRD) Af Amer 96, Est GFR (MDRD) Non-Af 79, BUN/Creatinine Ratio 14.4, Glucose 216 H, Calcium 8.3 L Rhythm: EKG: ECHO: Stress Test: Cardiac Cath: PCI: CT Surgery: Holter monitor: EPS: PPM: CXR: Chest CT Scan:
[2022-11-08 16:57] LABS: Bedside Glucose 218 mg/dL (74-106)
[2022-11-08 17:58] LABS: Troponin-I HS 82 pg/mL (3.0-78.0)
[2022-11-08] MEDS: Pramipexole Di-HCl 0.5 MG Tablet PO (21:58)
[2022-11-08] MEDS: Atorvastatin Calcium 80 MG Tablet PO (21:59)
[2022-11-08 22:25] LABS: Bedside Glucose 297 mg/dL (74-106)
[2022-11-09 04:00] VITALS: BP 121/73; PULSE 83; RESP 18; TEMP 36.9; O2SAT 97
[2022-11-09 05:26] LABS: Absolute Lymphocyte Count 0.69 X10^3/uL (0.83-4.51); Absolute Neutrophil Count 3.6 X10^3/uL (2.0-7.7); Basophil# 0.04 X10^3/uL; Basophil% 0.8 % (0-1); Eosinophil# 0.17 X10^3/uL; Eosinophils% 3.5 % (0-5); Hematocrit 29.8 % (40-54); Hemoglobin 8.4 g/dL (13.0-16.5); Lymphocyte # 0.69 X10^3/ul (0.83-4.51); Lymphocyte % 14.1 % (19-41); Mean Corp Hgb Conc 28.2 g/dL (32-36); Mean Corpuscular Hgb 22.3 pg (27.0-32.0); Mean Corpuscular Volume 79.3 fL (80-94); Mean Platelet Vol. 10.2 fl (6.2-12.0); Monocyte# 0.43 X10^3/uL; Monocyte% 8.8 % (0-10); NRBC Flagged by Analyzer 0 % (0-5); Neutrophil # 3.56 X10^3/uL (2.7-7.7); Neutrophil % 72.4 % (47-70); Platelet Count 137 K/mm3 (150-450); RBC Distribution Width CV 18.4 % (11.6-14.6); RBC Distribution Width SD 52.1 fl (35.1-43.9); Red Blood Count 3.76 M/mm3 (4.6-6.2); White Blood Count 4.9 K/mm3 (4.4-11.0)
[2022-11-09 05:57] LABS: Anion Gap 3 (5-15); BUN 13 mg/dL (7-18); Calcium,Total 8.4 mg/dL (8.5-10.1); Chloride 104 mmol/L (98-107); EST Glomerular Filtration Rate 77 mL/min (>60); Est Glom Filt Rate - Afr Amer 93 mL/min (>60); Estimated Creatinine Clearance 59.85 ml/min; Glucose 217 mg/dL (74-106); Potassium 3.4 mmol/L (3.5-5.1); Sodium Level 137 mmol/L (136-145)
[2022-11-09] MEDS: Gabapentin 600 MG Tablet PO (06:34)
[2022-11-09 06:53] LABS: Bedside Glucose 197 mg/dL (74-106)
[2022-11-09 08:56] VITALS: BP 162/82; PULSE 89; RESP 16; TEMP 36.7; O2SAT 95
[2022-11-09] MEDS: Potassium Chloride Oral Tablet 20 MEQ 40 MEQ PO (09:01)
[2022-11-09] MEDS: Furosemide 80 MG Tablet PO (09:01)
[2022-11-09] MEDS: Insulin Glargine-YFGN 100 UNIT/ML Pen 20 UNIT SC (09:02)
[2022-11-09] MEDS: Insulin Lispro 100 UNIT/ML INSULN.PEN 10 UNIT SC (09:03)
[2022-11-09] MEDS: Insulin Lispro 100 UNIT/ML INSULN.PEN SC (09:03)
--- NOTE | 2022-11-09 09:52 | DS.PCM_ITS ---
Providers Date of Admission: 11/05/22 Date of Discharge: 11/09/22 Primary Care Physician: Dr. Tomás Patino MD Consultations 11/08/22 10:54 Consult: Cardiology Routine Consulting Provider: Yordan Palma Reason for Consult: chest pain, known CAD EMERGENT Consult: No MD Notified: Yes Date Notified: 11/08/22 Time Notified: 10:54 Method of Notification: Verbal Reason For Visit: GI BLEED Diagnosis Discharge Diagnosis (1) Chest pain: Status: Acute Code(s): R07.9 - Chest pain, unspecified Qualifiers: Chest pain type: unspecified Qualified Code(s): R07.9 - Chest pain, un specified Plan #Acute blood loss anemia due to GI bleed * had gastric polyps resected recently during EGD * Hb after EGD was 5.8, and on recheck was 6.1 * s/p transfusion of 2 units of PRBCs * Hb today is 8.6. * on PPI * #Gastric polyps * Had gastric polyps resected on day of admission. CT of the chest abdomen and pelvis with p.o. and IV contrast done showed thickening of the distal portion of the stomach but no evidence of metastatic malignancy. * Management as per general surgery. * per GI, he had multiple areas of erosion, so to keep off coumadin for now. * #Elevated troponins * Initial troponin was in the 80s and trended up slightly to 102. Likely due to acute on chronic anemia and resultant demand ischemia. Patient denies any chest pain. 2D echo done showed EF of 55% with normal diastolic function and no regional wall motion abnormalities noted as well as presence of ICD or pacer leads in the right ventricle and right atrium * he developed chest pain today. EKG showed no acute ST changes. * troponins were not elevated * he does have a history of CAD, so discussed with cardiology, and cardiology consult placed. Will await their rec's. * #Hypokalemia: resolved. #THrombocytopenia: resolved. Platelets are 144. #History of DVT: * On Coumadin which is currently on hold. * Per general surgery, to continue holding Coumadin. He will need to be scoped again by general surgery and so Coumadin to be held until okay to resume per general surgery. * This will be decided on outpatient basis. * #CAD * Has a history of ischemic cardiomyopathy and had diagnostic cardiac cath done in 523 which showed EF of 35% and an occluded RCA with good collateral flow, moderate left circumflex disease and moderate LAD disease and also showed inferior mid akinesis and moderate global hypokinesis. * On Coreg and Lasix as well as Imdur. * cardiology consulted today in light of onset of chest pain * #Type 2 diabetes mellitus: * On Lantus 30 units twice daily. Insulin sliding scale. Checks ACHS. Lantus dose was decreased to 20 units bid on admission * Also on dapagliflozin and Trulicity as well as gabapentin for neuropathy. * * #Hyperlipidemia: on statin #Restless leg syndrome: on ropinirole DVT prophylaxis: SCDs Disposition: anticipate dc tomorrow if cardiology doesnt want to do any further workup Medications at Discharge Home Medications latanoprost 0.005 % eye drops 1 drp EACH EYE TID glaucoma 11/17/18 ropinirole 0.5 mg tablet 1 mg PO QHS legs 12/10/21 ondansetron 4 mg disintegrating tablet 4 mg PO Q6H PRN Nausea 03/16/22 albuterol sulfate 2.5 mg/3 mL (0.083 %) solution for nebulization 2.5 mg (3 mL) inhalation Q4H.RT PRN WHEEZING 30 days #360 mL 04/14/22 gabapentin 600 mg tablet 600 mg PO TID 30 days #90 tabs 04/14/22 albuterol sulfate 90 mcg/actuation aerosol inhaler 2 puff inhalation Q6H PRN shortness of breath or wheezing #8.5 grams 04/16/22 dapagliflozin propanediol 10 mg tablet (Farxiga) 10 mg PO DAILY diabetes 04/18/22 nitroglycerin 0.4 mg sublingual tablet 0.4 mg sublingual Q5M PRN Chest Pain #25 tabs 04/21/22 dulaglutide 3 mg/0.5 mL subcutaneous pen injector (Trulicity) 3 mg subcut QWEEK diabetes 05/20/22 potassium chloride 20 mEq tablet,extended release(part/cryst) (Klor-Con M) 20 meq PO DAILY #30 tabs 07/18/22 carvedilol 6.25 mg tablet 6.25 mg PO BID This is a dose increase #180 tabs 08/07/22 isosorbide mononitrate 60 mg tablet,extended release 24 hr 60 mg PO DAILY #90 tabs 08/07/22 rosuvastatin 40 mg tablet 40 mg PO QHS Cholesterol #90 tabs 08/19/22 furosemide 80 mg tablet (Lasix) 80 mg PO DAILY water pill 10/30/22 insulin lispro 100 unit/mL subcutaneous pen (Humalog KwikPen (U-100) Insulin) 21 unit subcut TID blood sugar 10/30/22 peg 3350-electrolytes 236 gram-22.74 gram-6.74 gram-5.86 gram solution (Golytely) 240 ml PO Q10M #4,000 mL 10/30/22 warfarin 6 mg tablet 6 mg PO .every day 10/30/22 insulin glargine-yfgn 100 unit/mL (3 mL) subcutaneous pen 30 unit subcut BID blood sugar 11/04/22 pantoprazole 40 mg tablet,delayed release (Protonix) 40 mg PO DAILY #30 tabs 11/06/22 sucralfate 1 gram tablet (Carafate) 1 g PO TID 14 days #42 tabs 11/06/22 Hospital Course Operations None Procedures None Summary of Care Provided Minutes Spent on Discharge: 48 Hospital Course: Patient is a 77 y/o male with a PMH as outlined who initially came to the hospiital for an endoscopy for EGD and colonoscopy with General surgery o/a of melena. EGD showed multiple gastric polyps concerning for malignancy which were resected and biopsied. He was found to have Hb of 5.8, with a recheck of 6.1. He was therefore admitted for acue on chronic anemia. He was transfused with 2 units of PRBCs. Hospital course was also complicated by hypotension, thought to be due to the anemia. His troponins were elevated, but he didnt have any chest pain, and it was thought to be due to the hypotension and anemia result in demand ischemia. He was placed on pantoprazole. Hospital course was complicated by shortness of breath, and he was managed for acute on chronic HfrEF. He was diuresed with iV lasix. Repeat 2D echo showed EF of 55% with normal diastolic function and no regional wall motion abnormalities noted as well as presence of ICD or pacer leads in the right ventricle and right atrium. His shortness of breath improved and resolved. He also developed chest pain, and cardiology was consulted in light of his history of heart disease. Cardiology evaluated him and demed the chest pain as likely being non anginal in quality and so decided on no further workup. Patient remained stable and was discharged home on 11/09/2022. Per general surgery recommendation, he was to stay off his coumadin until he was reviewed on outpatient basis by general surgery as he was going to need repeat EGD. General surgery to determine when he could resume his coumadin. Patient counseled that he would be at increased risk of DVT and PE since he was off his coumadin, and he expressed understanding of it. Patient seen and examined prior to surgery. He had no active complaints and felt well. He had an uneventful night. Review of systems was otherwise negative. Labs and vitals reviewed, Home meds reviewed and reconciled. Physical Exam Const alert, oriented x3 and no apparent distress Constitutional Narrative: General Appearance: cooperative, comfortable, well kempt and well developed HEENT normocephalic, head/scalp atraumatic, hearing grossly normal bilaterally, nasal mucous membranes and turbinates normal and moist oral mucous membranes Mouth: oral and palatal mucosa normal Eyes PERRL, EOMs intact bilaterally and conjunctivae normal Neck full ROM, no lymphadenopathy, supple and no JVD Lymph Lymphatic: no lymphadenopathy noted and no lymphedema noted Chest inspection of chest normal Resp normal respiratory effort, normal air movement, no retractions, no use of accessory muscles and clear to auscultation bilaterally Resp Narrative: mildly diminished breath sounds bibasally, no wheezes or crackles. on room air. Cardio regular rate, regular rhythm, S1 normal heart sound, S2 normal heart sound, no murmurs and peripheral pulses 2+ throughout GI normal to inspection, nondistended, normoactive bowel sounds, soft to palpation, non-tender and non-distended Back/Spine normal ROM and normal to inspection Extremity normal to inspection, full ROM, normal capillary refill, no clubbing, cyanosis or edema, no calf tenderness and no pedal edema Skin no rashes or lesions noted General Skin Exam: no breakdown Neuro oriented x3, CN's II-XII intact bilaterally, moves all extremities and no focal motor deficits Sensorium / Orientation: awake Motor Exam: strength 5/5 throughout Psych mental status grossly normal, thought process normal, cooperative and affect normal Appearance: appropriate Weight / BMI Weight Weight: 273 lb Body Mass Index (BMI) 41.5 ABG / Lab / Microbiology Data 11/09/22 05:09 11/09/22 05:09 Laboratory: Laboratory Results - last 24 hr 11/08/22 11:03: Troponin I High Sens 102 H 11/08/22 11:21: POC Glucose 297 H 11/08/22 12:35: Troponin I High Sens 97 H 11/08/22 16:20: POC Glucose 218 H 11/08/22 17:03: Troponin I High Sens 82 H 11/08/22 21:58: POC Glucose 297 H 11/09/22 05:09: WBC 4.9, RBC 3.76 L, Hgb 8.4 L, Hct 29.8 L, MCV 79.3 L, MCH 22.3 L, MCHC 28.2 L, RDW Std Deviation 52.1 H, RDW Coeff of Galo 18.4 H, Plt Count 137 L, MPV 10.2, Immature Gran % (Auto) 0.400, Neut % (Auto) 72.4 H, Lymph % (Auto) 14.1 L, Briscoe % (Auto) 8.8, Eos % (Auto) 3.5, Baso % (Auto) 0.8, Absolute Neuts (auto) 3.6, Absolute Lymphs (auto) 0.69 L, Nucleated RBC % 0, Sodium 137, Potassium 3.4 L, Chloride 104, Carbon Dioxide 30.0, Anion Gap 3 L, BUN 13, Cre atinine 1.00, Estim Creat Clear Calc 59.85, Est GFR (MDRD) Af Amer 93, Est GFR (MDRD) Non-Af 77, BUN/Creatinine Ratio 13.0, Glucose 217 H, Calcium 8.4 L 11/09/22 06:32: POC Glucose 197 H D/C Instructions Discharge Diet: Light diet - advance as tolerated Weight Bearing Status: Weight bearing as tolerated Call your doctor if you observe: Fever of 101 or Higher, Shortness of breath, Dizziness, Swelling in the ankles and Chest pain Please Follow Up With: Jewell Faust MD When: 1 week follow-up from scopes and check hemoglobin. Please contact our office to schedule an appointment at [phone] Meaningful Use Info Meaningful Use Diagnoses (Choose all that apply): None applicable Discharge Plan Admission Admit Date/Time: 11/05/22 13:00 Primary Reason for Your Visit: acute on chronic anemia, hypotension, elevated troponins Attending Provider: Geraldine Parisi Primary Care Provider: Tomás Patino Consulting Providers: Nathan Ramirez; Yordan Palma Instructions Patient Instructions: Anemia, Hypotension Dc Discharge Orders/Prescriptions Prescriptions: New pantoprazole [Protonix] 40 mg tablet,delayed release (DR/EC) 40 mg PO DAILY Qty: 30 2RF sucralfate [Carafate] 1 gram tablet 1 g PO TID 14 Days Qty: 42 0RF Continued Farxiga 10 mg tablet 10 mg PO DAILY potassium chloride [Klor-Con M20] 20 mEq tablet,ER particles/crystals 20 meq PO DAILY Qty: 30 0RF furosemide [Lasix] 80 mg tablet 80 mg PO DAILY insulin lispro [Humalog KwikPen Insulin] 100 unit/mL insulin pen 21 unit subcut TID peg 3350-electrolytes [Golytely] 236-22.74-6.74 -5.86 gram recon soln 240 ml PO Q10M Qty: 4000 0RF Rx Instructions: until fecal effluent is clear latanoprost 2.5 ML drops 1 drp EACH EYE TID ropinirole 0.5 mg tablet 1 mg PO QHS ondansetron 4 mg Tablet,Disintegrating 4 mg PO Q6H PRN (Reason: Nausea) gabapentin 600 mg Tablet 600 mg PO TID 30 Days Qty: 90 0RF albuterol sulfate 2.5 mg /3 mL (0.083 %) Solution For Nebulization 2.5 mg inhalation Q4H.RT PRN (Reason: WHEEZING) 30 Days Qty: 360 0RF albuterol sulfate 90 mcg/actuation HFA aerosol inhaler 2 puff inhalation Q6H PRN (Reason: shortness of breath or wheezing) Qty: 8.5 0RF Trulicity 3 mg/0.5 mL Pen Injector 3 mg SUBCUT QWEEK insulin glargine-yfgn 100 unit/mL (3 mL) Insulin Pen 30 unit subcut BID nitroglycerin 0.4 mg tablet, sublingual 0.4 mg SL Q5M PRN (Reason: Chest Pain) Qty: 25 3RF carvedilol 6.25 mg tablet 6.25 mg PO BID Qty: 180 3RF Rx Instructions: must administer with a meal/food isosorbide mononitrate 60 mg tablet extended release 24 hr 60 mg PO DAILY Qty: 90 3RF rosuvastatin 40 mg tablet 40 mg PO QHS Qty: 90 3RF Held warfarin 6 mg tablet 6 mg PO .every day Hold Instructions: Resume on 12/04/22. Hold Coumadin until following the rep eat upper scope in 1 month Referrals / Follow Up: Tomás Patino MD [Primary Care Provider] - Within 1 Week Yordan Palma MD [Med Staff - Active Staff] - Within 1 Week Jewell Faust MD [Med Staff - Active Staff] - Within 1 Week Disposition Disposition (needs filled in before D/C Order can be placed): Home, Self Care Charges/Coding Visit Charges Inpatient E&M: 76032 Disch Hosp >30min
== END 2022-11-09 12:57 | disposition home or self-care (01) | DRG 811 ==
LOC: EN 13:38 → PCU 13:38
PROVIDERS: Family Medicine; Surgery; Admitting Provider Hospitalist; PCP Family Medicine; Referring Provider Family Medicine; Visit Provider Student in an Organized Health Care Education/Training Program
PROC: 0DJD8ZZ Inspection of Lower Intestinal Tract, Via Natural or Artificial Opening Endoscopic (ICD-10-PCS; CPT 45378; principal; 2022-11-05 07:25)
DX: D62 Acute posthemorrhagic anemia (principal); I50.23 Acute on chronic systolic (congestive) heart failure; I24.8 Other forms of acute ischemic heart disease; I13.0 Hypertensive heart and chronic kidney disease with heart failure and stage 1 through stage 4 chronic kidney disease, or unspecified chronic kidney disease; Z68.41 Body mass index [BMI] 40.0-44.9, adult; K92.1 Melena; E87.71 Transfusion associated circulatory overload; E11.22 Type 2 diabetes mellitus with diabetic chronic kidney disease; N18.30 Chronic kidney disease, stage 3 unspecified; E11.40 Type 2 diabetes mellitus with diabetic neuropathy, unspecified; E66.01 Morbid (severe) obesity due to excess calories; Z79.4 Long term (current) use of insulin; E11.51 Type 2 diabetes mellitus with diabetic peripheral angiopathy without gangrene; G25.81 Restless legs syndrome; K57.30 Diverticulosis of large intestine without perforation or abscess without bleeding; E78.5 Hyperlipidemia, unspecified; K62.1 Rectal polyp; I25.5 Ischemic cardiomyopathy; E87.6 Hypokalemia; E78.00 Pure hypercholesterolemia, unspecified; K31.7 Polyp of stomach and duodenum; I25.10 Atherosclerotic heart disease of native coronary artery without angina pectoris; D12.5 Benign neoplasm of sigmoid colon; D12.4 Benign neoplasm of descending colon; D12.3 Benign neoplasm of transverse colon; Z80.42 Family history of malignant neoplasm of prostate; Z79.01 Long term (current) use of anticoagulants; Z82.3 Family history of stroke; Z87.891 Personal history of nicotine dependence; Z90.49 Acquired absence of other specified parts of digestive tract; Z95.5 Presence of coronary angioplasty implant and graft; Z86.16 Personal history of COVID-19; R07.9 Chest pain, unspecified; Z86.718 Personal history of other venous thrombosis and embolism
CPT/HCPCS: 36415; 71046; 71260; 74177; 80048; 80076; 82728; 82962; 83010; 83540; 83550; 83615; 83735; 83880; 84132; 84484; 85025; 85027; 85610; 86850; 86900; 86901; 86920; 86922; 88305; 88342; 93005; 93306; 94002; 94640; 97110; 97162; 97166; 97530; 97535; J7040; J7120; P9016; Q9957; Q9967; A4216; C8929; J1940; J2405

== ENCOUNTER 2022-11-26 12:33 | Day surgery (SDC) | payer MEDICARE, OTHER, SELFPAY ==
[2017-11-06 10:25] VITALS: BMI 37.2
[2022-11-26] VITALS (7 sets, daily range): BP systolic 96–132; BP diastolic 63–84; PULSE 74–84; RESP 16–18; TEMP 35.9–36.7; O2SAT 95–100; BMI 39.2
--- NOTE | 2022-11-26 | GASB_PTH ---
PATIENT: Tim LONG LOC: EN U#:[id number] AGE/SX: 77/M ROOM: RE11/26/[address]: Dr. Jewell Faust MD : 1945 BED: DIS: 11/26/2022 SPEC #: [id number] RECD: 11/26/22 15:20 STATUS: JOSHUA KRISS #: [id number] SUSHIL: 11/26/22 00:[address]: Jewell Faust DEPT: SURGICAL PATHOLOGY RECD BY: Barry Weir ENTERED: 11/27/22 09:27 SP TYPE: Gastric Bx OTHR DR: Dr. Tomás Patino MD Tissues: Gastric mucous membrane Procedures: Surgery Specimen Level IV HEADER OPERATION: EGD, polypectomy, electrohemostasis PRE-OP DIAGNOSIS: Gastritis, GI bleed TISSUE SUBMITTED: Gastric polyps MICROSCOPIC DIAGNOSIS Gastric polyps, biopsy: Fragments of hyperplastic polyp with focal mucosal ulceration and associated acute inflammation and early granulation. Fibrinopurulent material. AM:mariya 11/28/2022 COMMENT Case has been reviewed in consultation with Dr. Crowley who concurs with the above diagnosis. IDC:NAINA MICROSCOPIC DESCRIPTION Slides are reviewed. GROSS DESCRIPTION Received in fixative is one container labeled with the patient's name and designated gastric polyps. The specimen consists of multiple irregular fragments of ho-pink polyp that in aggregate measure 2.5 x 2.5 x 0.4 cm. The specimen is totally submitted in one cassette. / SJ:mariya 11/27/2022 TC:2 CPT: 32328
[2022-11-26] MEDS: Lactated Ringers 1,000 ML 15 ML IV (13:22)
--- NOTE | 2022-11-26 13:37 | H&P.OPEN ---
[facility] - General General Date of Service: 11/26/22 HPI Narrative Tim LONG, is a 77 M who presents EGD. Patient EGD showed severe gastritis causing anemia of 6.1. Patient was hospitalized and transfused 2 units packed red blood cells. Patient's last hemoglobin on 11/09 was 8.4. Patient has been holding his Coumadin. Patient has been on Protonix 40 mg p.o. daily along with Carafate 3 times daily. [facility] Medical History (Updated 11/26/22 @ 13:[address] 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 Gastric reflux Gastritis GI bleed HFrEF (heart failure with reduced ejection fraction) High cholesterol History of CHF (congestive heart failure) History of deep vein thrombosis (DVT) of lower extremity History of echocardiogram History of edema History of heart attack History of irregular heartbeat History of non-ST elevation myocardial infarction (NSTEMI) (11/05/16) History of renal disease History of steroid therapy History of stress test Hyperlipidemia Insulin dependent diabetes mellitus Ischemic cardiomyopathy Leg cramps Localized edema Melena Morbid obesity with BMI of 40.0-44.9, adult Nondisp fracture of fifth left metatarsal bone with routine healing Nonrheumatic tricuspid (valve) insufficiency Nonsustained ventricular tachycardia Normocytic anemia 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 Other specified peripheral vascular diseases Paroxysmal atrial flutter Peripheral vascular occlusive disease Restless legs Shortness of breath on exertion Syncope TIA (transient ischemic attack) Type 2 diabetes mellitus Ulcer of left lower extremity with fat layer exposed Ulcer of right lower extremity Ulcer of right lower extremity with fat layer exposed Ulcer of right lower extremity with fat layer exposed Uncontrolled type 2 diabetes mellitus Walker as ambulation aid Walking difficulty due to ankle and foot Wears dentures Wears glasses Xerosis cutis Home Medications latanoprost 0.005 % eye drops 1 drp EACH EYE TID glaucoma 11/17/18 [History Last Taken 11/04/22 20:00] ropinirole 0.5 mg tablet 1 mg PO QHS legs 12/10/21 [History Last Taken 11/04/22 20:00] ondansetron 4 mg disintegrating tablet 4 mg PO Q6H PRN Nausea 03/16/22 [History Last Taken Unknown] albuterol sulfate 2.5 mg/3 mL (0.083 %) solution for nebulization 2.5 mg (3 mL) inhalation Q4H.RT PRN WHEEZING 30 days #360 mL 04/14/22 [Rx Last Taken 11/04/22 08:00] gabapentin 600 mg tablet 600 mg PO TID 30 days #90 tabs 04/14/22 [Rx Last Taken 11/26/22] albuterol sulfate 90 mcg/actuation aerosol inhaler 2 puff inhalation Q6H PRN shortness of breath or wheezing #8.5 grams 04/16/22 [Rx Last Taken Unknown] dapagliflozin propanediol 10 mg tablet (Farxiga) 10 mg PO DAILY diabetes 04/18/22 [History Last Taken 11/04/22 08:00] nitroglycerin 0.4 mg sublingual tablet 0.4 mg sublingual Q5M PRN Chest Pain #25 tabs 04/21/22 [Rx Last Taken Unknown] dulaglutide 3 mg/0.5 mL subcutaneous pen injector (Trulicity) 3 mg subcut QWEEK diabetes 05/20/22 [History Last Taken 11/02/22 08:00] carvedilol 6.25 mg tablet 6.25 mg PO BID This is a dose increase #180 tabs 08/07/22 [Rx Last Taken 11/26/22] isosorbide mononitrate 60 mg tablet,extended release 24 hr 60 mg PO DAILY #90 tabs 08/07/22 [Rx Last Taken 11/26/22] rosuvastatin 40 mg tablet 40 mg PO QHS Cholesterol #90 tabs 08/19/22 [Rx Last Taken 11/04/22 20:00] furosemide 80 mg tablet (Lasix) 80 mg PO DAILY water pill 10/30/22 [History Last Taken 11/04/22 08:44] insulin lispro 100 unit/mL subcutaneous pen (Humalog KwikPen (U-100) Insulin) 21 unit subcut TID blood sugar 10/30/22 [History Last Taken 11/04/22 18:00] peg 3350-electrolytes 236 gram-22.74 gram-6.74 gram-5.86 gram solution (Golytely) 240 ml PO Q10M #4,000 mL 10/30/22 [Rx Last Taken 11/04/22 12:00] insulin glargine-yfgn 100 unit/mL (3 mL) subcutaneous pen 30 unit subcut BID blood sugar 11/04/22 [History Last Taken 11/04/22 20:00] pantoprazole 40 mg tablet,delayed release (Protonix) 40 mg PO DAILY #30 tabs 11/06/22 [Rx Last Taken Unknown] potassium chloride 20 mEq tablet,extended release(part/cryst) (Klor-Con M) 20 meq PO DAILY #90 tabs 11/13/22 [Rx Last Taken Unknown] sucralfate 1 gram tablet (Carafate) 1 g PO TID 14 days #42 tabs 11/13/22 [Rx Last Taken Unknown] nortriptyline 25 mg capsule 25 mg PO DAILY 11/24/22 [History Last Taken Unknown] Allergy/AdvReac Type Severity Reaction Status Date / Time ceftriaxone sodium Allergy Rash Verified 11/26/22 13:13 [From Rocephin] milk AdvReac Diarrhea Verified 11/26/22 13:13 morphine AdvReac hallucinati Verified 11/26/22 13:13 ons Family History Father , Age 78 Prostate cancer Mother , Age 80 CVA (cerebral vascular accident) Sister Congestive heart failure Diabetes Hypertension Hyperlipidemia Atrial fibrillation CAD (coronary artery disease) Cardiac defibrillator in situ Sister Breast cancer Sister Breast cancer Brother CAD (coronary artery disease) Myocardial infarction Diabetes Brother Diabetes Brother , Age 74 COPD (chronic obstructive pulmonary disease) Sister Alive and well Surgical History H/O colonoscopy with polypectomy (11/2017) History of angioplasty of peripheral vessel History of cardiac catheterization History of colonoscopy History of coronary artery stent placement (12/15/14) History of detached retina repair History of electrophysiologic study (11/23/02) History of esophagogastroduodenoscopy (EGD) History of implantable cardiac defibrillator (ICD) (11/19/17) History of implantable cardiac defibrillator (ICD) History of left heart catheterization (12/06/18) History of radiofrequency ablation procedure for cardiac arrhythmia (07/01/11) ICD (implantable cardioverter-defibrillator) in place Social History household members: spouse housing: house current occupational status: retired pets and animals: Yes (2 dogs, 2 cats) Smoking Status: Former smoker pack-years: 20 how long ago did patient quit smokin years ago alcohol intake: never caffeine: Yes Type: coffee Number of servings: 1 Past Medical/Surgical History Planned Operation Planned Operative Procedure/s: EGD S.O.S: No Previous Hospitalizations/Surgeries HX Hospitalizations: Yes (ANEMIA/BLEED/CHEST PAIN) HX of Surgeries: cardiac stent x2 icd colonoscopy Any Problems With Anesthesia: No You/Your Family Experience Fever (Hyperthermia) With Anes: No Cholinesterase deficiency: No Cardiovascular Hx Chest Pain within Last 2 months: Yes Hx of Irregular Heartbeat and/or Afib: Yes (A.FIB/V-TACH-sees Dr Perry) Hx Heart Attack: Yes Hx Congestive Heart Failure: Yes Hx Rheumatic Fever: No Hx Hypertension: Yes (CONTROLLED WITH MEDS/GOES UP AND DOWN) Hx Internal Defibrillator: Yes Hx Pacemaker: No When Was Last Pacemaker Check: 10/2017 Hx Cardiac Catheterization: Yes What facility was last heart cath performed: - Date of last Heart Cath: - Hx Cardiac Surgery/Stents/Etc.: Yes (stent x1) Hx Stress Test: Yes (2018 and echo 2017,stress echo 2014) Hx Pain in Legs when Walking/Leg Cramps: Yes (RLS) Respiratory Chronic Cough: Yes HX of Shortness of Breath: Yes (sob with 2 flights of stairs) Hoarseness: No Hx Chronic Obstructive Pulmonary Disease (COPD): No Hx Asthma: No Hx Emphysema: No Hx Sleep Apnea: Yes CPAP: No BIPAP: Yes Hx Respiratory Tract Infection/Cold (presently): No Result (for STOP score): Positive Hx Smoking: Yes (quit 2009) Smoking Status: Former smoker Gastrointestinal Hx Gastroesophageal Reflux: Yes Controlled With Meds: Yes Hx Gastrointestinal Disorders: No Hx Gastrointestinal Bleed: No Hx Ulcer: No (Gastritis and Esophagitis) Hx Hiatal Hernia: No Difficulty Chewing/Swallowing: No Special diet followed at home: Yes (diabetic) Hx Unplanned Weight Loss of 20#: No HX Unplanned Weight Gain of 20#: No Neurological Hx Seizures: No HX Syncope/Blackout Spells/Unconsciousness: Yes (VASOVAGAL SYNCOPE) Hx Transient Ischemic Attacks (TIA): Yes Hx Multiple Sclerosis: No Hx Parkinson's Disease: No Hx Head/Neck Injury: No Hx Headaches: No Hx Back Injury/Pain: Yes Recent Onset of Speech Difficulty: No Restless Legs: No Does patient have nerve stimulator: No Blood Disorder Hx Leukemia: No Bleeding Tendencies: No (ON PLAVIX,COUMADIN AND ASA) Hx Deep Vein Thrombosis: Yes (several yrs ago dvt) Hx High Cholesterol: Yes Blood Transmitted Disease: No Hx Hepatitis: No Hx Cirrhosis: No Hx Anemia: No Hx Blood Disorders: No Reproduction : No Is Patient Lactating: No Hx Hysterectomy: No Hx Tubal Ligation: No Are You Post Menopause: No Genitourinary Hx Renal Disease: Yes (CKD III) Hx Dialysis: No Musculoskeletal Hx Arthritis: Yes (Rheumatoid arthritis) Hx Rheumatoid Arthritis: Yes Hx Gout: No Recent Onset of an Orthopedic Problem: No Endocrine Hx Diabetes: Yes Insulin: Yes Thyroid Disease: No Hx Steroid Therapy: No Psycho/Social Hx Substance Use: No Hx Alcohol Use: No Hx Anxiety: No Hx Depression: Yes Mental Illness: No Hx Dementia: No Miscellaneous Hx Cancer: No Recent Exposure to Contagious Disease: No Hx of C-Diff: No Any Loose Teeth: No (FULL SET OF DENTURES) Allergies ceftriaxone sodium [From Rocephin] Allergy (Verified 11/26/22 13:13) Rash milk Adverse Reaction (Verified 11/26/22 13:13) Diarrhea morphine Adverse Reaction (Verified 11/26/22 13:13) hallucinations Maternal: Family History Father Prostate cancer Mother CVA (cerebral vascular accident) Sister Congestive heart failure Diabetes Hypertension Hyperlipidemia Atrial fibrillation CAD (coronary artery disease) Cardiac defibrillator in situ Sister Breast cancer Sister Breast cancer Brother CAD (coronary artery disease) Myocardial infarction Diabetes Brother Diabetes Brother COPD (chronic obstructive pulmonary disease) Sister Alive and well Stroke (CVA, age 80.) Paternal: Family History Father Prostate cancer Mother CVA (cerebral vascular accident) Sister Congestive heart failure Diabetes Hypertension Hyperlipidemia Atrial fibrillation CAD (coronary artery disease) Cardiac defibrillator in situ Sister Breast cancer Sister Breast cancer Brother CAD (coronary artery disease) Myocardial infarction Diabetes Brother Diabetes Brother COPD (chronic obstructive pulmonary disease) Sister Alive and well Cancer (Prostate CA, 78 y/o.) Sibling: Family History Father Prostate cancer Mother CVA (cerebral vascular accident) Sister Congestive heart failure Diabetes Hypertension Hyperlipidemia Atrial fibrillation CAD (coronary artery disease) Cardiac defibrillator in situ Sister Breast cancer Sister Breast cancer Brother CAD (coronary artery disease) Myocardial infarction Diabetes Brother Diabetes Brother COPD (chronic obstructive pulmonary disease) Sister Alive and well Diabetes Discharge Is Pt Admitted From a Longterm, or a Jail: No After D/C, Where Do you Plan to Go: Return Home From the PAT History Number of Risk Factors: 6 Vital Signs Vital Signs Vital Signs: 11/26/22 13:14 11/26/22 13:14 Temperature 98.0 F Temperature Source Temporal Pulse Rate 84 Respiratory Rate 18 Respiratory Pattern Normal Blood Pressure 129/77 H Blood Pressure Mean 94 Blood Pressure Source Monitor Blood Pressure Position Semi-Fowlers Blood Pressure Location Left Arm Pulse Ox 95 Oxygen Delivery Method Room Air Weight Weight: 257 lb 11.526 oz Body Mass Index (BMI) 39.2 Physical Exam Const alert, oriented x3 and no apparent distress HEENT normocephalic and head/scalp atraumatic Resp normal respiratory effort Cardio regular rate GI soft to palpation and non-tender; Negative for non-distended Palpation: Negative for guarding Neuro CN's II-XII intact bilaterally Psych mental status grossly normal Assessment & Plan Assessment/Plan (1) Gastritis: (2) GI bleed: PLAN: Plan I have discussed the above with the patient. I have offered the patient esophagogastroduodenoscopy for evaluation. I have explained the risks/benefits of the procedure and described the procedure. I have discussed the risks with the patient, including but not limited to: infection, bleeding, perforation of the GI tract requiring emergency surgery, inability to complete the procedure, injury to any internal organs, complications of anesthesia, etc. - the patient understands and agrees to proceed. I have answered all the patient's questions to the patient's satisfaction and the patient has no further questions. Jewell Faust M.D. Pager: [phone] [facility] [address] [place] [address] [address] [place] [address] Office: [phone] Surgery Risks - Colonoscopy I discussed with the patient the risks of the procedure: Yes Risks Include but are not Limited To: Risks include but are not limited to: Bleeding, perforation requiring further surgery, inability to complete colonoscopy requiring barium enema.
--- NOTE | 2022-11-26 14:48 | OP.EGD_ITS ---
Patient Name: Tim Devi Procedure Date: 11/26/2022 1:31 PM Date of : 1945 Age: 77 Procedure: Upper GI endoscopy Indications: Melena, Follow-up of acute gastritis with hemorrhage, Follow-up of gastric polyps Providers: Jewell Faust MD Medicines: Monitored Anesthesia Care Patient Profile: This is a 77 year old male. Complications: No immediate complications. Procedure: Pre-Anesthesia Assessment: - Prior to the procedure, a History and Physical was performed, and patient medications and allergies were reviewed. The patient's tolerance of previous anesthesia was also reviewed. The risks and benefits of the procedure and the sedation options and risks were discussed with the patient. All questions were answered, and informed consent was obtained. Prior Anticoagulants: The patient has taken no anticoagulant or antiplatelet agents. ASA Grade Assessment: Per anesthesia. After reviewing the risks and benefits, the patient was deemed in satisfactory condition to undergo the procedure. After obtaining informed consent, the endoscope was passed under direct vision. Throughout the procedure, the patient's blood pressure, pulse, and oxygen saturations were monitored continuously. The gastroscope was introduced through the mouth, and advanced to the second part of duodenum. The upper GI endoscopy was accomplished without difficulty. The patient tolerated the procedure well. Scope In: 2:08:58 PM Scope Out: 2:28:17 PM Total Procedure Duration Time 0 hours 19 minutes 19 seconds Findings: The Z-line was variable. Multiple 2 to 8 mm pedunculated and sessile polyps with no bleeding and stigmata of recent bleeding were found in the gastric body. The three polyps were removed with a hot snare. Resection and retrieval were complete using a Jeffers net. Gold probe was used for hemostasis. Biopsies were taken with a cold forceps for histology. The cardia and gastric fundus were normal on retroflexion. Moderate/severe but improved from previous inflammation characterized by erythema and friability was found in the entire examined stomach. Coagulation for hemostasis using heater probe was successful-at larger pedunculated polyp/friable area just near GEJ in the stomach- just from passing the scope- no biopsy of this as more difficult area to control if it did bleeding after. Impression: - Z-line variable. - Multiple gastric polyps. Resected and retrieved. Biopsied. - Gastritis. Treated with a heater probe. Recommendation: - Discharge patient to home. - Discontinue Coumadin (warfarin). - Await pathology results. - Use sucralfate tablets 1 gram PO QID for 1 month. - Use Protonix (pantoprazole) 40 mg PO daily. - Continue present medications. Procedure Code(s): --- Professional --- 03946, 59, Esophagogastroduodenoscopy, flexible, transoral; with control of bleeding, any method 63059, Esophagogastroduodenoscopy, flexible, transoral; with removal of tumor(s), polyp(s), or other lesion(s) by snare technique Diagnosis Code(s): --- Professional --- K22.89, Other specified disease of esophagus K31.7, Polyp of stomach and duodenum K29.70, Gastritis, unspecified, without bleeding K92.1, Melena (includes Hematochezia) K29.01, Acute gastritis with bleeding CPT copyright 2021 [employer]. All rights reserved. The codes documented in this report are preliminary and upon compensation intern review may be revised to meet current compliance requirements. MD Jewell Tate MD 11/26/2022 2:47:49 PM This report has been signed electronically. Number of Addenda: 0 Note Initiated On: 11/26/2022 1:31 PM
--- NOTE | 2022-11-26 14:48 | OP.CCLET_ITS ---
11/26/2022 Tomás Patino [address] [place] [address] Re : Upper GI endoscopy procedure for Tim Shandra Dear Dr. Patino This procedure was performed on Saturday, November 26, 2022. My impressions and recommendations are as follows: Impressions : - Z-line variable. - Multiple gastric polyps. Resected and retrieved. Biopsied. - Gastritis. Treated with a heater probe. Recommendations : - Discharge patient to home. - Discontinue Coumadin (warfarin). - Await pathology results. - Use sucralfate tablets 1 gram PO QID for 1 month. - Use Protonix (pantoprazole) 40 mg PO daily. - Continue present medications. My findings are described in the full procedure note, which is enclosed. If I can be of further assistance, please feel free to contact me at Doctor phone number(s): , Work: . Sincerely, MD Jewell Tate MD 11/26/2022 2:47:49 PM This report has been signed electronically.
[2022-11-26 16:08] LABS: Absolute Lymphocyte Count 0.94 X10^3/uL (0.83-4.51); Absolute Neutrophil Count 3.5 X10^3/uL (2.0-7.7); Basophil# 0.03 X10^3/uL; Basophil% 0.6 % (0-1); Eosinophil# 0.17 X10^3/uL; Eosinophils% 3.2 % (0-5); Hematocrit 30.8 % (40-54); Hemoglobin 8.6 g/dL (13.0-16.5); Lymphocyte # 0.94 X10^3/ul (0.83-4.51); Lymphocyte % 17.5 % (19-41); Mean Corp Hgb Conc 27.9 g/dL (32-36); Mean Corpuscular Hgb 21.1 pg (27.0-32.0); Mean Corpuscular Volume 75.5 fL (80-94); Mean Platelet Vol. 9.8 fl (6.2-12.0); Monocyte# 0.73 X10^3/uL; Monocyte% 13.6 % (0-10); NRBC Flagged by Analyzer 0 % (0-5); Neutrophil # 3.47 X10^3/uL (2.7-7.7); Neutrophil % 64.7 % (47-70); Platelet Count 162 K/mm3 (150-450); RBC Distribution Width CV 17.4 % (11.6-14.6); RBC Distribution Width SD 46.9 fl (35.1-43.9); Red Blood Count 4.08 M/mm3 (4.6-6.2); White Blood Count 5.4 K/mm3 (4.4-11.0)
[2022-11-27 07:23] LABS: Prothrombin Time Fingerstick 11.7 SEC (11.7-14.9)
[2022-11-29 18:07] LABS: Gastrin, Serum 269 pg/mL (0-115)
== END 2022-11-26 16:38 | disposition home or self-care (01) ==
LOC: EN 12:34 → AC 12:35
PROVIDERS: PCP Family Medicine; Referring Provider Family Medicine; Visit Provider Surgery
PROC: 0DJ08ZZ Inspection of Upper Intestinal Tract, Via Natural or Artificial Opening Endoscopic (ICD-10-PCS; CPT 43235; principal; 2022-11-26 13:40)
DX: K29.01 Acute gastritis with bleeding (principal); I11.0 Hypertensive heart disease with heart failure; I50.22 Chronic systolic (congestive) heart failure; Z79.4 Long term (current) use of insulin; E11.9 Type 2 diabetes mellitus without complications; D64.9 Anemia, unspecified; Z87.891 Personal history of nicotine dependence; I25.5 Ischemic cardiomyopathy; K29.00 Acute gastritis without bleeding; Z82.3 Family history of stroke; E78.5 Hyperlipidemia, unspecified; K31.7 Polyp of stomach and duodenum; I25.10 Atherosclerotic heart disease of native coronary artery without angina pectoris; K22.89 Other specified disease of esophagus
CPT/HCPCS: 43251; 43255; 36416; 82941; 85025; 85610; 88305; J7120; J2405

== ENCOUNTER → 2022-12-12 | Outpatient (CLI) | payer MEDICARE, OTHER, SELFPAY ==
[2017-11-06 10:25] VITALS: BMI 37.2
== END | disposition home or self-care (01) ==
PROVIDERS: PCP Family Medicine; Visit Provider Internal Medicine Rheumatology
DX: R30.0 Dysuria (principal)
CPT/HCPCS: 87086; 87088

== ENCOUNTER → 2022-12-18 | Outpatient (CLI) | payer MEDICARE, OTHER, SELFPAY ==
[2017-11-06 10:25] VITALS: BMI 37.2
--- NOTE | 2022-12-19 10:33 | PFT ---
INTRODUCTION: The patient is a 77-year-old male who presents for pulmonary function studies secondary to a diagnosis of shortness of breath. Respiratory therapy reported good patient effort. Bronchodilators were used during testing. INTERPRETATION: Forced expiration spirometry demonstrates no evidence of a large airways obstructive ventilatory defect. There was a significant response to aerosolized bronchodilators. Body plethysmography revealed a decreased TLC to 5.17 L, 77% of predicted, indicative of a mild restrictive ventilatory impairment. Diffusing capacity by single breath CO was reduced to 57% of predicted. IMPRESSION: Mild restrictive ventilatory impairment with disproportionate reduction in diffusing capacity. Significant bronchodilator response was noted.
== END | disposition home or self-care (01) ==
LOC: PSN 12:51
PROVIDERS: PCP Family Medicine; Referring Provider Nurse Practitioner Acute Care; Visit Provider Nurse Practitioner Acute Care
DX: R06.02 Shortness of breath (principal)
CPT/HCPCS: 94060; 94726; 94729

== ENCOUNTER → 2022-12-19 | Outpatient (CLI) | payer MEDICARE, OTHER, SELFPAY ==
[2017-11-06 10:25] VITALS: BMI 37.2
[2022-12-19 11:13] VITALS: PULSE 80; PULSE 82; PULSE 83; PULSE 90; PULSE 92; PULSE 94; PULSE 95; O2SAT 90; O2SAT 91; O2SAT 92; O2SAT 97; O2SAT 98
--- NOTE | 2022-12-19 11:16 | CPS ---
PATIENT ARRIVED FOR TESTING BY W/C AND USED HIS ROLLATOR DURING TEST. HE FORGOT TO USE HIS NEBULIZER PRIOR TO COMING IN FOR THIS TEST TODAY. HE STATES HIS SHORTNESS OF BREATH IS WHAT LIMITED HIS TEST. MINUTE 4 CONSISTED ONLY OF REST, NO EXERCISE. LOWEST SPO2 WAS 90% WITH AMBULATION. LOVELY ACHIEVED 243FT DURING TESTING.
--- NOTE | 2022-12-20 07:23 | PCM.PSN.6M ---
PSN 6 Minute Walk Test 6 Minute Walk Test 6 Minute Walk Test: 6 Minute Walk Test PSN:6-Minute Walk Test Start: 12/19/22 11:13 Freq: Status: Active Protocol: RESP.6MINW Document 12/19/22 11:13 [facility] (Rec: 12/19/22 11:23 [facility] [id number]) 6 Minute Walk Test Date Performed 12/19/22 Time Performed 10:45 Height 5 ft 8 in Weight: 265 lb Weight in Pounds 265.[address]: Del Ayala Assistive device used: Walker Pre-test Oxygen Delivery Method Room Air Pulse Ox 98 Pulse Rate (60-100) 82 Dyspnea Tiffany Scale (0-10) 3 Reported Symptoms Increased Work of Breathing 1st minute Oxygen Delivery Method Room Air Pulse Ox 92 Pulse Rate (60-100) 83 Dyspnea Tiffany Scale (0-10) 4 Number of Rests Taken 1 Reported Symptoms Increased Work of Breathing 2nd minute Oxygen Delivery Method Room Air Pulse Ox 91 Pulse Rate (60-100) 94 Dyspnea Tiffany Scale (0-10) 5 Number of Rests Taken 1 Reported Symptoms Increased Work of Breathing 3rd minute Oxygen Delivery Method Room Air Pulse Ox 90 Pulse Rate (60-100) 92 Dyspnea Tiffany Scale (0-10) 6 Number of Rests Taken 1 Reported Symptoms Increased Work of Breathing 4th minute Oxygen Delivery Method Room Air Pulse Ox 98 Pulse Rate (60-100) 90 Dyspnea Tiffany Scale (0-10) 6 Number of Rests Taken 1 Reported Symptoms Increased Work of Breathing 5th minute Oxygen Delivery Method Room Air Pulse Ox 92 Pulse Rate (60-100) 94 Dyspnea Tiffany Scale (0-10) 6 Number of Rests Taken 1 Reported Symptoms Increased Work of Breathing 6th minute Oxygen Delivery Method Room Air Pulse Ox 91 Pulse Rate (60-100) 95 Dyspnea Tiffany Scale (0-10) 6 Number of Rests Taken 0 Reported Symptoms Increased Work of Breathing Post-test Oxygen Delivery Method Room Air Pulse Ox 97 Pulse Rate (60-100) 80 Dyspnea Tiffany Scale (0-10) 3 Reported Symptoms Increased Work of Breathing Full Laps Walked 4 Partial Lap, Number of Tiles Walked 7 Total Distance Walked (ft) 243 12/19/22 11:16 Cardiopulmonary Services by Lexa PATIENT ARRIVED FOR TESTING BY W/C AND USED HIS ROLLATOR DURING TEST. HE FORGOT TO USE HIS NEBULIZER PRIOR TO COMING IN FOR THIS TEST TODAY. HE STATES HIS SHORTNESS OF BREATH IS WHAT LIMITED HIS TEST. MINUTE 4 CONSISTED ONLY OF REST, NO EXERCISE. LOWEST SPO2 WAS 90% WITH AMBULATION. LOVELY ACHIEVED 243FT DURING TESTING. Initialized on 12/19/22 11:16 - END OF NOTE Interpretation Interpretation: The patient ambulated 243 feet over the course of 6 minutes beginning on room air with use of a wheeled walker. Pretesting oxygen saturation was noted to be 98% on room air. With ambulation, the too oxygen saturation was 90%. This testing indicated the presence of impaired walk distance and significant exertional oxygen desaturation, consistent with a pulmonary limitation to exercise tolerance. Recommendations Recommendations: There is no indication for the use of supplemental oxygen at this time. However, close interval follow-up was recommended, given the degree of oxygen desaturation noted during this study.
== END | disposition home or self-care (01) ==
LOC: PSN 10:36
PROVIDERS: PCP Family Medicine; Referring Provider Nurse Practitioner Acute Care; Visit Provider Nurse Practitioner Acute Care
DX: R06.02 Shortness of breath (principal)
CPT/HCPCS: 94618

== ENCOUNTER 2023-01-30 05:27 | Day surgery (SDC) | payer MEDICARE, OTHER, SELFPAY ==
[2017-11-06 10:25] VITALS: BMI 37.2
[2023-01-30] VITALS (8 sets, daily range): BP systolic 98–135; BP diastolic 61–69; PULSE 62–85; RESP 16–18; TEMP 36.1–36.6; O2SAT 96–100; BMI 39.5
[2023-01-30 06:06] LABS: Bedside Glucose 120 mg/dL (74-106)
[2023-01-30] MEDS: Lactated Ringers 1,000 ML 15 ML IV (06:06)
--- NOTE | 2023-01-30 06:27 | HP.PCM_ITS ---
History and Physical Date of Admission: 01/30/23 Tim LONG, is a 77 M who presents EGD. Patient EGD showed severe gastritis causing anemia of 6.1. Patient was hospitalized and transfused 2 units packed red blood cells. Patient's last hemoglobin on 11/09 was 8.4. Patient has been holding his Coumadin. Patient has been on Protonix 40 mg p.o. daily along with Carafate 3 times daily. He underwent an upper endoscopy back on 11/26/2022 and was discovered to have severely bleeding gastric polyps as a cause of his anemia. In the pulse of 90 they remove so he comes back today for removal of the bleeding polyps. [facility] Medical History (Updated 11/26/22 @ 13:[address] 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 Gastric reflux Gastritis GI bleed HFrEF (heart failure with reduced ejection fraction) High cholesterol History of CHF (congestive heart failure) History of deep vein thrombosis (DVT) of lower extremity History of echocardiogram History of edema History of heart attack History of irregular heartbeat History of non-ST elevation myocardial infarction (NSTEMI) (11/05/16) History of renal disease History of steroid therapy History of stress test Hyperlipidemia Insulin dependent diabetes mellitus Ischemic cardiomyopathy Leg cramps Localized edema Melena Morbid obesity with BMI of 40.0-44.9, adult Nondisp fracture of fifth left metatarsal bone with routine healing Nonrheumatic tricuspid (valve) insufficiency Nonsustained ventricular tachycardia Normocytic anemia 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 Other specified peripheral vascular diseases Paroxysmal atrial flutter Peripheral vascular occlusive disease Restless legs Shortness of breath on exertion Syncope TIA (transient ischemic attack) Type 2 diabetes mellitus Ulcer of left lower extremity with fat layer exposed Ulcer of right lower extremity Ulcer of right lower extremity with fat layer exposed Ulcer of right lower extremity with fat layer exposed Uncontrolled type 2 diabetes mellitus Walker as ambulation aid Walking difficulty due to ankle and foot Wears dentures Wears glasses Xerosis cutis Home Medications latanoprost 0.005 % eye drops 1 drp EACH EYE TID glaucoma 11/17/18 [History Last Taken 11/04/22 20:00] ropinirole 0.5 mg tablet 1 mg PO QHS legs 12/10/21 [History Last Taken 11/04/22 20:00] ondansetron 4 mg disintegrating tablet 4 mg PO Q6H PRN Nausea 03/16/22 [History Last Taken Unknown] albuterol sulfate 2.5 mg/3 mL (0.083 %) solution for nebulization 2.5 mg (3 mL) inhalation Q4H.RT PRN WHEEZING 30 days #360 mL 04/14/22 [Rx Last Taken 11/04/22 08:00] gabapentin 600 mg tablet 600 mg PO TID 30 days #90 tabs 04/14/22 [Rx Last Taken 11/26/22] albuterol sulfate 90 mcg/actuation aerosol inhaler 2 puff inhalation Q6H PRN shortness of breath or wheezing #8.5 grams 04/16/22 [Rx Last Taken Unknown] dapagliflozin propanediol 10 mg tablet (Farxiga) 10 mg PO DAILY diabetes [History Last Taken 11/04/22 08:00] nitroglycerin 0.4 mg sublingual tablet 0.4 mg sublingual Q5M PRN Chest Pain #25 tabs 04/21/22 [Rx Last Taken Unknown] dulaglutide 3 mg/0.5 mL subcutaneous pen injector (Trulicity) 3 mg subcut QWEEK diabetes 05/20/22 [History Last Taken 11/02/22 08:00] carvedilol 6.25 mg tablet 6.25 mg PO BID This is a dose increase #180 tabs 08/07/22 [Rx Last Taken 11/26/22] isosorbide mononitrate 60 mg tablet,extended release 24 hr 60 mg PO DAILY #90 tabs 08/07/22 [Rx Last Taken 11/26/22] rosuvastatin 40 mg tablet 40 mg PO QHS Cholesterol #90 tabs 08/19/22 [Rx Last Taken 11/04/22 20:00] furosemide 80 mg tablet (Lasix) 80 mg PO DAILY water pill 10/30/22 [History Last Taken 11/04/22 08:44] insulin lispro 100 unit/mL subcutaneous pen (Humalog KwikPen (U-100) Insulin) 21 unit subcut TID blood sugar 10/30/22 [History Last Taken 11/04/22 18:00] peg 3350-electrolytes 236 gram-22.74 gram-6.74 gram-5.86 gram solution (Golytely) 240 ml PO Q10M #4,000 mL 10/30/22 [Rx Last Taken 11/04/22 12:00] insulin glargine-yfgn 100 unit/mL (3 mL) subcutaneous pen 30 unit subcut BID blood sugar 11/04/22 [History Last Taken 11/04/22 20:00] pantoprazole 40 mg tablet,delayed release (Protonix) 40 mg PO DAILY #30 tabs 11/06/22 [Rx Last Taken Unknown] potassium chloride 20 mEq tablet,extended release(part/cryst) (Klor-Con M) 20 meq PO DAILY #90 tabs 11/13/22 [Rx Last Taken Unknown] sucralfate 1 gram tablet (Carafate) 1 g PO TID 14 days #42 tabs 11/13/22 [Rx Last Taken Unknown] nortriptyline 25 mg capsule 25 mg PO DAILY 11/24/22 [History Last Taken Unknown] Allergy/AdvReac Type Severity Reaction Status Date / Time ceftriaxone sodium Allergy Rash Verified 11/26/22 13:13 [From Rocephin] milk AdvReac Diarrhea Verified 11/26/22 13:13 morphine AdvReac hallucinati Verified 11/26/22 13:13 ons Family History (Reviewed 11/24/22 @ 10:06 by Francis Kwok HUMAN RESOURCES BENEFITS COORDINATOR, HUMAN RESOURCES BENEFITS COORDINATOR-C) Father , Age 78 Prostate cancerMother , Age 80 CVA (cerebral vascular accident)Sister Congestive heart failure Diabetes Hypertension Hyperlipidemia Atrial fibrillation CAD (coronary artery disease) Cardiac defibrillator in situSister Breast cancerSister Breast cancerBrother CAD (coronary artery disease) Myocardial infarction DiabetesBrother DiabetesBrother , Age 74 COPD (chronic obstructive pulmonary disease)Sister Alive and well Surgical History H/O colonoscopy with polypectomy (11/2017) History of angioplasty of peripheral vessel History of cardiac catheterization History of colonoscopy History of coronary artery stent placement (12/15/14) History of detached retina repair History of electrophysiologic study (11/23/02) History of esophagogastroduodenoscopy (EGD) History of implantable cardiac defibrillator (ICD) (11/19/17) History of implantable cardiac defibrillator (ICD) History of left heart catheterization (12/06/18) History of radiofrequency ablation procedure for cardiac arrhythmia (07/01/11) ICD (implantable cardioverter-defibrillator) in place Social History (Reviewed 11/24/22 @ 10:06 by Francis Kwok HUMAN RESOURCES BENEFITS COORDINATOR, HUMAN RESOURCES BENEFITS COORDINATOR-C) household members: spouse housing: house current occupational status: retired pets and animals: Yes (2 dogs, 2 cats) Smoking Status: Former smoker pack-years: 20 how long ago did patient quit smokin years ago alcohol intake: never caffeine: Yes Type: coffee Number of servings: 1 Past Medical/Surgical History Planned Operation Planned Operative Procedure/s: EGD S.O.S: No Previous Hospitalizations/Surgeries HX Hospitalizations: Yes (ANEMIA/BLEED/CHEST PAIN) HX of Surgeries: cardiac stent x2 icd colonoscopy Any Problems With Anesthesia: No You/Your Family Experience Fever (Hyperthermia) With Anes: No Cholinesterase deficiency: No Cardiovascular Hx Chest Pain within Last 2 months: Yes Hx of Irregular Heartbeat and/or Afib: Yes (A.FIB/V-TACH-sees Dr Perry) Hx Heart Attack: Yes Hx Congestive Heart Failure: Yes Hx Rheumatic Fever: No Hx Hypertension: Yes (CONTROLLED WITH MEDS/GOES UP AND DOWN) Hx Internal Defibrillator: Yes Hx Pacemaker: No When Was Last Pacemaker Check: 10/2017 Hx Cardiac Catheterization: Yes What facility was last heart cath performed: - Date of last Heart Cath: - Hx Cardiac Surgery/Stents/Etc.: Yes (stent x1) Hx Stress Test: Yes (2018 and echo 2017,stress echo 2014) Hx Pain in Legs when Walking/Leg Cramps: Yes (RLS) Respiratory Chronic Cough: Yes HX of Shortness of Breath: Yes (sob with 2 flights of stairs) Hoarseness: No Hx Chronic Obstructive Pulmonary Disease (COPD): No Hx Asthma: No Hx Emphysema: No Hx Sleep Apnea: Yes CPAP: No BIPAP: Yes Hx Respiratory Tract Infection/Cold (presently): No Result (for STOP score): Positive Hx Smoking: Yes (quit 2009) Smoking Status: Former smoker Gastrointestinal Hx Gastroesophageal Reflux: Yes Controlled With Meds: Yes Hx Gastrointestinal Disorders: No Hx Gastrointestinal Bleed: No Hx Ulcer: No (Gastritis and Esophagitis) Hx Hiatal Hernia: No Difficulty Chewing/Swallowing: No Special diet followed at home: Yes (diabetic) Hx Unplanned Weight Loss of 20#: No HX Unplanned Weight Gain of 20#: No Neurological Hx Seizures: No HX Syncope/Blackout Spells/Unconsciousness: Yes (VASOVAGAL SYNCOPE) Hx Transient Ischemic Attacks (TIA): Yes Hx Multiple Sclerosis: No Hx Parkinson's Disease: No Hx Head/Neck Injury: No Hx Headaches: No Hx Back Injury/Pain: Yes Recent Onset of Speech Difficulty: No Restless Legs: No Does patient have nerve stimulator: No Blood Disorder Hx Leukemia: No Bleeding Tendencies: No (ON PLAVIX,COUMADIN AND ASA) Hx Deep Vein Thrombosis: Yes (several yrs ago dvt) Hx High Cholesterol: Yes Blood Transmitted Disease: No Hx Hepatitis: No Hx Cirrhosis: No Hx Anemia: No Hx Blood Disorders: No Reproduction : No Is Patient Lactating: No Hx Hysterectomy: No Hx Tubal Ligation: No Are You Post Menopause: No Genitourinary Hx Renal Disease: Yes (CKD III) Hx Dialysis: No Musculoskeletal Hx Arthritis: Yes (Rheumatoid arthritis) Hx Rheumatoid Arthritis: Yes Hx Gout: No Recent Onset of an Orthopedic Problem: No Endocrine Hx Diabetes: Yes Insulin: Yes Thyroid Disease: No Hx Steroid Therapy: No Psycho/Social Hx Substance Use: No Hx Alcohol Use: No Hx Anxiety: No Hx Depression: Yes Mental Illness: No Hx Dementia: No Miscellaneous Hx Cancer: No Recent Exposure to Contagious Disease: No Hx of C-Diff: No Any Loose Teeth: No (FULL SET OF DENTURES) Allergies ceftriaxone sodium [From Rocephin] Allergy (Verified 11/26/22 13:13) Rashmilk Adverse Reaction (Verified 11/26/22 13:13) Diarrheamorphine Adverse Reaction (Verified 11/26/22 13:13) hallucinations Maternal: Family History Father Prostate cancerMother CVA (cerebral vascular accident)Sister Congestive heart failure Diabetes Hypertension Hyperlipidemia Atrial fibrillation CAD (coronary artery disease) Cardiac defibrillator in situSister Breast cancerSister Breast cancerBrother CAD (coronary artery disease) Myocardial infarction DiabetesBrother DiabetesBrother COPD (chronic obstructive pulmonary disease)Sister Alive and well Stroke (CVA, age 80.) Paternal: Family History (Reviewed 11/24/22 @ 10:06 by Francis Kwok HUMAN RESOURCES BENEFITS COORDINATOR, HUMAN RESOURCES BENEFITS COORDINATOR-C) Father Prostate cancerMother CVA (cerebral vascular accident)Sister Congestive heart failure Diabetes Hypertension Hyperlipidemia Atrial fibrillation CAD (coronary artery disease) Cardiac defibrillator in situSister Breast cancerSister Breast cancerBrother CAD (coronary artery disease) Myocardial infarction DiabetesBrother DiabetesBrother COPD (chronic obstructive pulmonary disease)Sister Alive and well Cancer (Prostate CA, 78 y/o.) Sibling: Family History (Reviewed 11/24/22 @ 10:06 by Francis Kwok HUMAN RESOURCES BENEFITS COORDINATOR, HUMAN RESOURCES BENEFITS COORDINATOR-C) Father Prostate cancerMother CVA (cerebral vascular accident)Sister Congestive heart failure Diabetes Hypertension Hyperlipidemia Atrial fibrillation CAD (coronary artery disease) Cardiac defibrillator in situSister Breast cancerSister Breast cancerBrother CAD (coronary artery disease) Myocardial infarction DiabetesBrother DiabetesBrother COPD (chronic obstructive pulmonary disease)Sister Alive and well Diabetes Discharge Is Pt Admitted From a Prison, or a Usp: No After D/C, Where Do you Plan to Go: Return Home From the PAT History Number of Risk Factors: 6 Vital Signs Vital Signs Vital Signs: 11/26/2312:14 11/26/2312:14 Temperature 98.0 F Temperature Source Temporal Pulse Rate 84 Respiratory Rate 18 Respiratory Pattern Normal Blood Pressure 129/77 H Blood Pressure Mean 94 Blood Pressure Source Monitor Blood Pressure Position Semi-Fowlers Blood Pressure Location Left Arm Pulse Ox 95 Oxygen Delivery Method Room Air Weight Weight: 257 lb 11.526 oz Body Mass Index (BMI) 39.2 Physical Exam Const alert, oriented x3 and no apparent distress HEENT normocephalic and head/scalp atraumatic Resp normal respiratory effort Cardio regular rate GI soft to palpation and non-tender; Negative for non-distended Palpation: Negative for guarding Neuro CN's II-XII intact bilaterally Psych mental status grossly normal Assessment & Plan Assessment/Plan (1) Gastritis: (2) GI bleed: PLAN: Plan I have discussed the above with the patient. I have offered the patient esophagogastroduodenoscopy for evaluation. I have explained the risks/benefits of the procedure and described the procedure. I have discussed the risks with the patient, including but not limited to: infection, bleeding, perforation of the GI tract requiring emergency surgery, inability to complete the procedure, injury to any internal organs, complications of anesthesia, etc. - the patient understands and agrees to proceed. I have answered all the patient's questions to the patient's satisfaction and the patient has no further questions. I have examined the patient and the H&P has been reviewed. There are no clinical changes since date of exam.
--- NOTE | 2023-01-30 06:30 | EGD_PTH ---
PATIENT: Tim LONG LOC: EN U#:[id number] AGE/SX: 77/M ROOM: RE01/30/[address]: Dr. Allen Jackson DO : 1945 BED: DIS: 01/30/2023 SPEC #: [id number] RECD: 01/30/23 11:06 STATUS: JOSHUA RERuth #: [id number] SUSHIL: 01/30/23 06:[address]: Allen Jackson DEPT: SURGICAL PATHOLOGY RECD BY: Nellie Donahue ENTERED: 01/30/23 11:32 SP TYPE: EGD BIOPSY CHAR DR: Dr. Tomás Patino MD Tissues: A - Gastric mucous membrane B - Sigmoid colon biopsy C - Cecum, NOS D - COLON BIOPSY Procedures: Surgery Specimen Level IV HEADER OPERATION: Colonoscopy, EGD PRE-OP DIAGNOSIS: Anemia, gastric polyps TISSUE SUBMITTED: A - Gastric polyp biopsy, B - Sigmoid polyp biopsy, C - Cecal polyp biopsy, D - Splenic flexure polyp biopsy MICROSCOPIC DIAGNOSIS A. Gastric polyp, biopsy: Hyperplastic/inflammatory polyp with focal reactive changes. B. Sigmoid colon polyp, biopsy: A fragment of colonic mucosa with focal hyperplastic changes. C. Cecal polyp, biopsy: Fragments of tubular adenoma. Fragments of fecal material. D. Splenic flexure polyp, biopsy: Fragments of hyperplastic polyp. Fragments of fecal material. SJ: 02/02/2023 MICROSCOPIC DESCRIPTION Slides are reviewed. GROSS DESCRIPTION A - Received in fixative is one container labeled with the patient's name and designated gastric polyp biopsy. The specimen consists of a ho-pink polyp measuring 1.2 x 1.0 x 0.7 cm. The presumed base is inked. The polyp is bisected and submitted entirely in one cassette. B - Received in fixative is one container labeled with the patient's name and designated sigmoid polyp biopsy. The specimen consists of one irregular fragment of light ho soft tissue that measures 0.2 x 0.1 x 0.1 cm. The specimen is totally submitted in one cassette. C - Received in fixative is one container labeled with the patient's name and designated cecal polyp biopsy. The specimen consists of multiple irregular fragments of light ho soft tissue that in aggregate measure 1.0 x 0.5 x 0.1 cm. The specimen is totally submitted in one cassette. D - Received in fixative is one container labeled with the patient's name and designated splenic flexure polyp biopsy. The specimen consists of multiple irregular fragments of light ho soft tissue that in aggregate measure 1.5 x 0.3 x 0.1 cm. The specimen is totally submitted in one cassette. / NAINA:mariya 01/30/2023 TC:1 CPT: 71075 x4
[2023-01-30] MEDS: 0.9% Normal Saline (Pres. free 10 ML Vial (07:10)
[2023-01-30] MEDS: Epinephrine (1 mg/ml) 1 MG/ML VIAL ×2 (07:10→07:16)
--- NOTE | 2023-01-30 07:45 | OP.EGD_ITS ---
Patient Name: Tim Devi Procedure Date: 01/30/2023 6:36 AM Date of : 1945 Age: 77 Procedure: Upper GI endoscopy Indications: Iron deficiency anemia Providers: Allen Jackson DO Referring MD: Tomás Patino Medicines: Monitored Anesthesia Care Patient Profile: This is a 77 year old male. Refer to note in patient chart for documentation of history and physical. Patient has symptoms of acute abdominal cramping. Complications: No immediate complications. Procedure: Pre-Anesthesia Assessment: - Prior to the procedure, a History and Physical was performed, and patient medications and allergies were reviewed. The patient is competent. The risks and benefits of the procedure and the sedation options and risks were discussed with the patient. All questions were answered and informed consent was obtained. Patient identification and proposed procedure were verified by the physician. Mental Status Examination: normal. Prophylactic Antibiotics: The patient does not require prophylactic antibiotics. Prior Anticoagulants: The patient has taken no anticoagulant or antiplatelet agents. After reviewing the risks and benefits, the patient was deemed in satisfactory condition to undergo the procedure. The anesthesia plan was to use monitored anesthesia care (MAC). Immediately prior to administration of medications, the patient was re-assessed for adequacy to receive sedatives. The heart rate, respiratory rate, oxygen saturations, blood pressure, adequacy of pulmonary ventilation, and response to care were monitored throughout the procedure. The physical status of the patient was re-assessed after the procedure. After obtaining informed consent, the endoscope was passed under direct vision. Throughout the procedure, the patient's blood pressure, pulse, and oxygen saturations were monitored continuously. The Colonoscope was introduced through the mouth, and advanced to the second part of duodenum. The upper GI endoscopy was accomplished without difficulty. The patient tolerated the procedure well. Scope In: Scope Out: 7:12:32 AM Findings: The examined esophagus was normal. Multiple 29 mm pedunculated and sessile polyps with bleeding and stigmata of recent bleeding were found in the stomach. The polyp was removed with a hot snare. Resection and retrieval were complete. Area was successfully injected with 10 mL of a 0.1 mg/mL solution of epinephrine for drug delivery. Coagulation for hemostasis using heater probe was successful. Estimated blood loss was minimal. To stop active bleeding, hemostatic spray was deployed. Several sprays were applied. There was no bleeding at the end of the procedure. No gross lesions were noted in the first portion of the duodenum. Impression: - Normal esophagus. - Multiple gastric polyps. Resected and retrieved. Injected. Treated with a heater probe. - No gross lesions in the first portion of the duodenum. Recommendation: - Discharge patient to home [Means]. - Full liquid diet. - Continue present medications. - Await pathology results. -Check gastric level Procedure Code(s): --- Professional --- 77311, 59, Esophagogastroduodenoscopy, flexible, transoral; with control of bleeding, any method 94823, Esophagogastroduodenoscopy, flexible, transoral; with removal of tumor(s), polyp(s), or other lesion(s) by snare technique 79244, 59,51, Esophagogastroduodenoscopy, flexible, transoral; with directed submucosal injection(s), any substance CPT copyright 2021 [employer]. All rights reserved. The codes documented in this report are preliminary and upon veneer drier feeder review may be revised to meet current compliance requirements. Allen Jackson DO 01/30/2023 7:44:35 AM This report has been signed electronically. Number of Addenda: 0 Note Initiated On: 01/30/2023 6:36 AM
--- NOTE | 2023-01-30 07:45 | OP.CCLET_ITS ---
01/30/2023 Tomás Patino [address] [place] [address] Re : Upper GI endoscopy procedure for Tim Devi Dear Dr. Patino This procedure was performed on Monday, January 30, 2023. My impressions and recommendations are as follows: Impressions : - Normal esophagus. - Multiple gastric polyps. Resected and retrieved. Injected. Treated with a heater probe. - No gross lesions in the first portion of the duodenum. Recommendations : - Discharge patient to home [Means]. - Full liquid diet. - Continue present medications. - Await pathology results. -Check gastric level My findings are described in the full procedure note, which is enclosed. If I can be of further assistance, please feel free to contact me at . Sincerely, Allen Friend, 01/30/2023 7:44:35 AM This report has been signed electronically.
--- NOTE | 2023-01-30 07:49 | OP.COLON_ITS ---
Patient Name: Tim Devi Procedure Date: 01/30/2023 7:12 AM Date of : 1945 Age: 77 Procedure: Colonoscopy Indications: Screening for colorectal malignant neoplasm Providers: Allen Jackson DO Referring MD: Tomás Patino Medicines: Monitored Anesthesia Care Patient Profile: This is a 77 year old male. Refer to note in patient chart for documentation of history and physical. Patient has symptoms of acute abdominal cramping. Last Colonoscopy: date unknown. Unable to locate last colonoscopy report. Complications: No immediate complications. Procedure: Pre-Anesthesia Assessment: - Prior to the procedure, a History and Physical was performed, and patient medications and allergies were reviewed. The patient is competent. The risks and benefits of the procedure and the sedation options and risks were discussed with the patient. All questions were answered and informed consent was obtained. Patient identification and proposed procedure were verified by the physician. Mental Status Examination: normal. Prophylactic Antibiotics: The patient does not require prophylactic antibiotics. Prior Anticoagulants: The patient has taken no anticoagulant or antiplatelet agents. After reviewing the risks and benefits, the patient was deemed in satisfactory condition to undergo the procedure. The anesthesia plan was to use monitored anesthesia care (MAC). Immediately prior to administration of medications, the patient was re-assessed for adequacy to receive sedatives. The heart rate, respiratory rate, oxygen saturations, blood pressure, adequacy of pulmonary ventilation, and response to care were monitored throughout the procedure. The physical status of the patient was re-assessed after the procedure. After I obtained informed consent, the scope was passed under direct vision. Throughout the procedure, the patient's blood pressure, pulse, and oxygen saturations were monitored continuously. The Colonoscope was introduced through the anus and advanced to the cecum, identified by appendiceal orifice and ileocecal valve. The ileocecal valve, appendiceal orifice, and rectum were photographed. Scope In: 7:14:25 AM Scope Withdrawal Time 0 hours 20 minutes 11 seconds Scope Out: 7:37:57 AM Total Procedure Duration Time 0 hours 23 minutes 32 seconds Findings: The perianal and digital rectal examinations were normal. Three sessile polyps were found in the sigmoid colon, splenic flexure and cecum. The polyps were 1 to 2 mm in size. These polyps were removed with a lift and cut technique using a cold snare. Resection and retrieval were complete. Area was successfully injected with 5 mL of a 0.1 mg/mL solution of epinephrine for tattooing. Multiple small and large-mouthed diverticula were found in the recto-sigmoid colon and sigmoid colon. Stool was found in the sigmoid colon, in the descending colon, at the splenic flexure, in the transverse colon and at the hepatic flexure. Impression: - Three 1 to 2 mm polyps in the sigmoid colon, at the splenic flexure and in the cecum, removed using lift and cut and a cold snare. Resected and retrieved. Injected. - Diverticulosis in the recto-sigmoid colon and in the sigmoid colon. Recommendation: - Discharge patient to home. - Resume previous diet. - Continue present medications. - Repeat colonoscopy in 6 months because the bowel preparation was suboptimal. Procedure Code(s): --- Professional --- 13778, Colonoscopy, flexible; with removal of tumor(s), polyp(s), or other lesion(s) by snare technique 50623, Colonoscopy, flexible; with directed submucosal injection(s), any substance CPT copyright 2021 [employer]. All rights reserved. The codes documented in this report are preliminary and upon cloth tearer review may be revised to meet current compliance requirements. Allen Jackson DO 01/30/2023 7:49:17 AM This report has been signed electronically. Number of Addenda: 0 Note Initiated On: 01/30/2023 7:12 AM
--- NOTE | 2023-01-30 07:50 | OP.CCLET_ITS ---
01/30/2023 Tomás Patino [address] [place] [address] Re : Colonoscopy procedure for Tim Shandra Dear Dr. Patino This procedure was performed on Monday, January 30, 2023. My impressions and recommendations are as follows: Impressions : - Three 1 to 2 mm polyps in the sigmoid colon, at the splenic flexure and in the cecum, removed using lift and cut and a cold snare. Resected and retrieved. Injected. - Diverticulosis in the recto-sigmoid colon and in the sigmoid colon. Recommendations : - Discharge patient to home. - Resume previous diet. - Continue present medications. - Repeat colonoscopy in 6 months because the bowel preparation was suboptimal. My findings are described in the full procedure note, which is enclosed. If I can be of further assistance, please feel free to contact me at . Sincerely, Allen Jackson, 01/30/2023 7:49:17 AM This report has been signed electronically.
--- NOTE | 2023-01-30 08:10 | NURSING ---
PT HAVING NAUSEA AND VOMITIMG IN PACU, DR TAPIA NOTIFIED, ORDERS GIVEN FOR BENADRYL AND REGLAN IV.
--- NOTE | 2023-01-30 09:27 | SUR.PHASEII ---
pt nausea has subsided. pt c/o dull abdominal pain. instructed pt to call if pain worsens or if it hasnt subsided in a few hours. instructed on full liquid diet. pt also told to call if any bleeding noted from mouth or rectum.
== END 2023-01-30 09:30 | disposition home or self-care (01) ==
LOC: EN 05:28 → AC 05:29
PROVIDERS: PCP Family Medicine; Referring Provider Family Medicine; Visit Provider Internal Medicine Gastroenterology
PROC: 0DJD8ZZ Inspection of Lower Intestinal Tract, Via Natural or Artificial Opening Endoscopic (ICD-10-PCS; CPT 45378; principal; 2023-01-30 06:25)
DX: K92.2 Gastrointestinal hemorrhage, unspecified (principal); I11.0 Hypertensive heart disease with heart failure; I50.22 Chronic systolic (congestive) heart failure; Z79.4 Long term (current) use of insulin; E11.9 Type 2 diabetes mellitus without complications; K57.30 Diverticulosis of large intestine without perforation or abscess without bleeding; E78.00 Pure hypercholesterolemia, unspecified; K63.5 Polyp of colon; Z87.891 Personal history of nicotine dependence; K31.7 Polyp of stomach and duodenum; I25.10 Atherosclerotic heart disease of native coronary artery without angina pectoris; Z86.73 Personal history of transient ischemic attack (TIA), and cerebral infarction without residual deficits; G25.81 Restless legs syndrome; Z79.899 Other long term (current) drug therapy; I25.2 Old myocardial infarction; Z79.85 Long-term (current) use of injectable non-insulin antidiabetic drugs; K21.9 Gastro-esophageal reflux disease without esophagitis; Z95.5 Presence of coronary angioplasty implant and graft; Z95.810 Presence of automatic (implantable) cardiac defibrillator; D64.9 Anemia, unspecified
CPT/HCPCS: 43251; 45385; 43255; 45381; 82962; 88305; J7120; A4648; J2405; J3490

== ENCOUNTER 2023-02-09 14:26 | Emergency (ER) | payer MEDICARE, OTHER, SELFPAY ==
[2017-11-06 10:25] VITALS: BMI 37.2
[2023-02-09] VITALS (7 sets, daily range): BP systolic 128–142; BP diastolic 71–79; PULSE 88–100; RESP 18–20; TEMP 36.7–37.1; O2SAT 95–98; BMI 40.2
--- NOTE | 2023-02-09 14:31 | EKG12_ITS ---
Test Reason : Blood Pressure : / mmHG Vent. Rate : 096 BPM Atrial Rate : 096 BPM P-R Int : 208 ms QRS Dur : 096 ms QT Int : 310 ms P-R-T Axes : 083 -51 101 degrees QTc Int : 391 ms Critical Test Result: STEMI Normal sinus rhythm Left axis deviation Low voltage QRS Inferior infarct , age undetermined Anterolateral infarct , age undetermined Confirmed by CA SIMMONS, ROBERT ([id number]), assignment desk editor SABINE ALVAREZ ([id number]) on 02/18/2023 10:06:50 AM Referred By: MARIA G Confirmed By:ROBERT PENALOZA MD
--- NOTE | 2023-02-09 15:09 | EKG12_ITS ---
Test Reason : Blood Pressure : / mmHG Vent. Rate : 096 BPM Atrial Rate : 096 BPM P-R Int : 216 ms QRS Dur : 092 ms QT Int : 168 ms P-R-T Axes : 067 -52 000 degrees QTc Int : 212 ms Critical Test Result: STEMI Sinus rhythm with 1st degree A-V block Left axis deviation Low voltage QRS Inferior infarct , possibly acute Anterolateral infarct , age undetermined Confirmed by CA SIMMONS, ROBERT ([id number]), editor publications SABINE ALVAREZ ([id number]) on 02/18/2023 10:07:13 AM Referred By: MARIA G Confirmed By:ROBERT PENALOZA MD
--- NOTE | 2023-02-09 15:09 | CT_ITS ---
STUDY: CTA CHEST REASON FOR EXAM: Male, 77 years old. High probability PE RADIATION DOSAGE (If Supplied By Facility): CTDIvol = ( 18.59 ) mGy, DLP = ( 572.42 ) mGycm TECHNIQUE: The examination was performed with the intravenous administration of [id number] 100ML. Post-processing of the angiographic images was performed, with multiplanar reformation and 3D reconstruction. Individualized dose optimization techniques were used for this CT. COMPARISON: None. FINDINGS: Normal enhancement of the main pulmonary artery and right and left pulmonary arteries. Normal enhancement of the bilateral peripheral pulmonary arteries. There is no demonstrated pulmonary embolism. Normal thoracic aorta and visualized great vessels. There is no demonstrated aortic dissection. Normal heart and pericardium. Transvenous pacemaker present. Normal mediastinum. Normal hilar regions. No infiltrates, consolidations or pulmonary masses. No congestive changes. No pleural effusions. Normal chest wall structures. No acute or aggressive osseous abnormality. No acute findings in the upper abdomen. CT/CTA Chest W/WO Contrast IMPRESSION: Normal CTA chest examination, without a demonstrated pulmonary embolism or arterial dissection. No acute pulmonary findings. Electronically Signed: Trung Ortiz MD at 17:[address] [facility] ,
--- NOTE | 2023-02-09 15:10 | ED.VIS.DYS ---
HPI History of Present Illness Chief Complaint: Shortness of Breath Detail of Chief Complaint: Dyspnea Informant: patient Narrative Narrative: Patient presents to the emergency department complaint of shortness of breath has been going on for about a week and a half. Patient states that he is chronically on Coumadin for history of DVT and history of a flutter. Patient was taken off his Coumadin about 3 months ago because he was going to have a colonoscopy for some rectal bleeding issues. Patient had his colonoscopy about a week and a half ago. Patient states that they took out some polyps but otherwise no significant abnormalities were noted. Patient was not restarted on his Coumadin. Patient called the Coumadin clinic today to see if he should restart his Coumadin and he appeared dyspneic to them so he was referred to the emergency department. Patient also been complaining of some chest tightness for the last week and a half and exertional dyspnea. He has had a dry cough for about a month and a runny nose. Patient denies any fevers. Patient denies any weight gain or water weight gain. [facility], LAT[facility] Medical History (Updated 02/09/23 @ 20:[address] 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 Gastric reflux Gastritis GI bleed HFrEF (heart failure with reduced ejection fraction) High cholesterol History of CHF (congestive heart failure) History of deep vein thrombosis (DVT) of lower extremity History of echocardiogram History of edema History of heart attack History of irregular heartbeat History of non-ST elevation myocardial infarction (NSTEMI) (11/05/16) History of renal disease History of steroid therapy History of stress test Hyperlipidemia Insulin dependent diabetes mellitus Ischemic cardiomyopathy Leg cramps Localized edema Melena Morbid obesity with BMI of 40.0-44.9, adult Nondisp fracture of fifth left metatarsal bone with routine healing Nonrheumatic tricuspid (valve) insufficiency Nonsustained ventricular tachycardia Normocytic anemia 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 Other specified peripheral vascular diseases Paroxysmal atrial flutter Peripheral vascular occlusive disease Restless legs Shortness of breath on exertion Syncope TIA (transient ischemic attack) Type 2 diabetes mellitus Ulcer of left lower extremity with fat layer exposed Ulcer of right lower extremity Ulcer of right lower extremity with fat layer exposed Ulcer of right lower extremity with fat layer exposed Uncontrolled type 2 diabetes mellitus Walker as ambulation aid Walking difficulty due to ankle and foot Wears dentures Wears glasses Xerosis cutis Home Medications latanoprost 0.005 % eye drops 1 drp EACH EYE TID glaucoma 11/17/18 [History Last Taken 02/09/23] ropinirole 0.5 mg tablet 1 mg PO QHS legs 12/10/21 [History Last Taken 02/08/23] ondansetron 4 mg disintegrating tablet 4 mg PO Q6H PRN Nausea 03/16/22 [History Last Taken Unknown] albuterol sulfate 2.5 mg/3 mL (0.083 %) solution for nebulization 2.5 mg (3 mL) inhalation Q4H.RT PRN WHEEZING 30 days #360 mL 04/14/22 [Rx Last Taken 02/09/23] albuterol sulfate 90 mcg/actuation aerosol inhaler 2 puff inhalation Q6H PRN shortness of breath or wheezing #8.5 grams 04/16/22 [Rx Last Taken 02/09/23] dapagliflozin propanediol 10 mg tablet (Farxiga) 10 mg PO DAILY diabetes 04/18/22 [History Last Taken 02/09/23] nitroglycerin 0.4 mg sublingual tablet 0.4 mg sublingual Q5M PRN Chest Pain #25 tabs 04/21/22 [Rx Last Taken Unknown] dulaglutide 3 mg/0.5 mL subcutaneous pen injector (Trulicity) 3 mg subcut QWEEK diabetes 05/20/22 [History Last Taken 02/08/23] carvedilol 6.25 mg tablet 6.25 mg PO BID This is a dose increase #180 tabs 08/07/22 [Rx Last Taken 01/30/23 03:30] isosorbide mononitrate 60 mg tablet,extended release 24 hr 60 mg PO DAILY #90 tabs 08/07/22 [Rx Last Taken 01/30/23 03:30] rosuvastatin 40 mg tablet 40 mg PO QHS Cholesterol #90 tabs 08/19/22 [Rx Last Taken 02/08/23] insulin lispro 100 unit/mL subcutaneous pen (Humalog KwikPen (U-100) Insulin) 24 unit subcut TID blood sugar 10/30/22 [History Last Taken 02/09/23] insulin glargine-yfgn 100 unit/mL (3 mL) subcutaneous pen 40 unit subcut BID blood sugar 11/04/22 [History Last Taken 02/09/23] potassium chloride 20 mEq tablet,extended release(part/cryst) (Klor-Con M) 20 meq PO DAILY #90 tabs 11/13/22 [Rx Last Taken 02/09/23] nortriptyline 25 mg capsule 25 mg PO DAILY 11/24/22 [History Last Taken 02/09/23] furosemide 80 mg tablet (Lasix) 80 mg PO DAILY 01/21/23 [History Last Taken 02/09/23] gabapentin 300 mg capsule 900 mg PO Q8H 02/09/23 [History Last Taken 02/09/23] pantoprazole 40 mg tablet,delayed release (Protonix) 40 mg PO DAILY 02/09/23 [History Last Taken 02/09/23] Allergy/AdvReac Type Severity Reaction Status Date / Time ceftriaxone sodium Allergy Rash Verified 02/09/23 14:27 [From Rocephin] milk AdvReac Diarrhea Verified 02/09/23 14:27 morphine AdvReac hallucinati Verified 02/09/23 14:27 ons Family History Father , Age 78 Prostate cancer Mother , Age 80 CVA (cerebral vascular accident) Sister Congestive heart failure Diabetes Hypertension Hyperlipidemia Atrial fibrillation CAD (coronary artery disease) Cardiac defibrillator in situ Sister Breast cancer Sister Breast cancer Brother CAD (coronary artery disease) Myocardial infarction Diabetes Brother Diabetes Brother , Age 74 COPD (chronic obstructive pulmonary disease) Sister Alive and well Surgical History H/O colonoscopy with polypectomy (11/2017) History of angioplasty of peripheral vessel History of cardiac catheterization History of colonoscopy History of coronary artery stent placement (12/15/14) History of detached retina repair History of electrophysiologic study (11/23/02) History of esophagogastroduodenoscopy (EGD) History of implantable cardiac defibrillator (ICD) (11/19/17) History of implantable cardiac defibrillator (ICD) History of left heart catheterization (12/06/18) History of radiofrequency ablation procedure for cardiac arrhythmia (07/01/11) ICD (implantable cardioverter-defibrillator) in place Social History household members: spouse housing: house current occupational status: retired pets and animals: Yes (2 dogs, 2 cats) Smoking Status: Former smoker pack-years: 20 how long ago did patient quit smokin years ago alcohol intake: never caffeine: Yes Type: coffee Number of servings: 1 ROS ROS ED Review of Systems ROS Unobtainable: other Constitutional Constitutional ED: Reports lethargy; Denies chills, fever(s), sweats or weight loss Eyes Eyes: Denies blurry vision, change in vision or diplopia ENT ENT ED: Denies rhinorrhea or sore throat Cardiovascular Cardiovascular: Reports chest pain; Denies orthopnea or racing heartbeat Respiratory/Chest Respiratory/Chest: Reports dyspnea and dyspnea on exertion; Denies cough, orthopnea or sputum Gastrointestinal Gastrointestinal: Denies abdominal pain, diarrhea, nausea or vomiting Genitourinary Genitourinary ED: Denies dysuria, hematuria or urinary frequency Musculoskeletal Musculoskeletal: Denies arthralgias, back pain, myalgias or neck pain Integumentary Denies abscess, Abrasions or rash Neurologic Neurologic: Denies headache(s) or weakness Psychiatric Psychiatric: Denies anxiety, depression or suicidal thoughts Endocrine Endocrinology: Denies polydipsia, polyphagia or polyuria Hematologic/Lymphatic Hematologic/Lymphatic: Denies easy bleeding, easy bruising or lymphadenopathy Allergic/Immunologic Allergic/Immunologic ED: Denies mouth swelling, tongue swelling or urticaria EXAM Physical Exam Const Vital Signs: 02/09/23 14:27 02/09/23 14:31 02/09/23 14:31 Temperature 98.7 F Temperature Source Temporal Pulse Rate 100 Respiratory Rate 20 H 18 Respiratory Effort Short of Breath Labored Respiratory Depth Shallow Respiratory Pattern Tachypnea Blood Pressure 130/71 H Blood Pressure Mean 90 Pulse Ox 97 96 Oxygen Delivery Method Room Air Room Air Room Air 02/09/23 16:26 02/09/23 14:31 02/09/23 15:09 Temperature Temperature Source Pulse Rate 91 Respiratory Rate 18 Respiratory Effort Respiratory Depth Respiratory Pattern Blood Pressure 129/73 H Blood Pressure Mean 91 Pulse Ox 96 97 98 Oxygen Delivery Method Room Air Room Air Room Air 02/09/23 18:00 Temperature 98.0 F Temperature Source Temporal Pulse Rate 90 Respiratory Rate 18 Respiratory Effort Respiratory Depth Respiratory Pattern Blood Pressure 128/77 H Blood Pressure Mean 94 Pulse Ox 95 Oxygen Delivery Method Room Air Positive well nourished and well developed General Appearance ED: well developed and NAD HEENT Reports TM's clear and moist mucous membranes normocephalic and atraumatic; Negative for trauma or tenderness Tympanic Membrane ED: Yes TM's clear Eyes PERRL and EOMs intact bilaterally General Eye ED: Negative for pale conjunctiva or scleral icterus Neck no lymphadenopathy, supple and no JVD General: Negative for tenderness Chest Wall inspection of chest normal and palpation of chest normal Chest: Negative for tenderness Resp normal respiratory effort and clear to auscultation bilaterally Effort and Inspection: Negative for respiratory distress or pain with movement Auscultation: Negative for rhonchi, wheezes or diminished lung sounds Cardio regular rate, regular rhythm, S1 normal heart sound, S2 normal heart sound and no murmurs Peripheral Pulses: pulses 2+ throughout GI normal to inspection, nondistended, normoactive bowel sounds, soft to palpation, non-tender, non-distended and no masses Back/Spine no CVA tenderness and no thoracic nor lumbar tenderness Extremity normal to inspection General Extremety ED: Negative for edema General Extremity: Negative for edema Neuro oriented x3, CN's II-XII intact bilaterally, no sensory deficits noted and gait normal Sensorium / Orientation: awake, alert, oriented to person, oriented to place and oriented to time Motor Exam: strength 5/5 throughout and strength abnormal Psych mental status grossly normal Skin no rashes or lesions noted and no wounds MDM MDM MDM Narrative Medical decision making narrative: Patient presents with dyspnea and concern for PE. Has been having some nondescript chest discomfort for a week and a half. Complains of exertional dyspnea. In the differential would be PE given that he is been off his Coumadin. Also acute coronary syndrome or CHF. Infectious etiology also although I think this is less likely. IV line established on arrival. EKG obtained showed a sinus rhythm with a ventricular rate of [address] changes. Computer noted acute ST elevation [place] however I do not think EKG represents STEMI. When compared with prior EKG from April 21, 2021 no significant changes noted. CBC with differential white count of 6.0 with hemoglobin of 9.2 and platelet count of 165. Chemistries unremarkable. Potassium slightly low 3.0. I will given 40 mill equivalents of potassium chloride p.o. First troponin was minimally elevated at 83 however looking back this is his baseline. I did perform a delta troponin and it was 80. BNP was 121.6. CTA of the chest with IV contrast showed no evidence for PE or infiltrate or acute process. At this point etiology of his dyspnea unclear. Clinically he looks well. I do not think she is having acute coronary syndrome. There is no evidence of PE. Recommended he follow-up with Coumadin clinic to get started back on his Coumadin. Patient to follow-up with his primary care physician within next 3 to 5 days. Lab Data Attestation: I reviewed the patient's lab results. Labs: Laboratory Results - last 24 hr 02/09/23 02/09/23 02/09/23 15:24 15:24 15:24 WBC 6.0 RBC 4.63 Hgb 9.2 L Hct 33.2 L MCV 71.7 L MCH 19.9 L MCHC 27.7 L RDW Std Deviation 47.0 H RDW Coeff of [place] 18.6 H Plt Count 165 MPV 9.2 Immature Gran % (Auto) 0.500 Neut % (Auto) 69.4 Lymph % (Auto) 17.4 L [place] % (Auto) 9.6 Eos % (Auto) 2.3 Baso % (Auto) 0.8 Absolute Neuts (auto) 4.2 Absolute Lymphs (auto) 1.05 Nucleated RBC % 0 Sodium 140 Cancelled Potassium 3.0 L Cancelled Chloride 102 Carbon Dioxide Anion Gap BUN Creatinine Estim Creat Clear Calc Est GFR (MDRD) Af Amer Est GFR (MDRD) Non-Af BUN/Creatinine Ratio Glucose Calcium Troponin I High Sens B-Natriuretic Peptide 02/09/23 02/09/23 02/09/23 15:24 15:24 15:24 WBC RBC Hgb Hct MCV MCH MCHC RDW Std Deviation RDW Coeff of [place] Plt Count MPV Immature Gran % (Auto) Neut % (Auto) Lymph % (Auto) [place] % (Auto) Eos % (Auto) Baso % (Auto) Absolute Neuts (auto) Absolute Lymphs (auto) Nucleated RBC % Sodium Potassium Chloride Cancelled Carbon Dioxide 29.0 Cancelled Anion Gap 9 Cancelled BUN 20 H Creatinine Estim Creat Clear Calc Est GFR (MDRD) Af Amer Est GFR (MDRD) Non-Af BUN/Creatinine Ratio Glucose Calcium Troponin I High Sens B-Natriuretic Peptide 02/09/23 02/09/23 02/09/23 15:24 15:24 15:24 WBC RBC Hgb Hct MCV MCH MCHC RDW Std Deviation RDW Coeff of [place] Plt Count MPV Immature Gran % (Auto) Neut % (Auto) Lymph % (Auto) [place] % (Auto) Eos % (Auto) Baso % (Auto) Absolute Neuts (auto) Absolute Lymphs (auto) Nucleated RBC % Sodium Potassium Chloride Carbon Dioxide Anion Gap BUN Cancelled Creatinine 1.16 Cancelled Estim Creat Clear Calc 51.59 Cancelled Est GFR (MDRD) Af Amer 79 Est GFR (MDRD) Non-Af BUN/Creatinine Ratio Glucose Calcium Troponin I High Sens B-Natriuretic Peptide 02/09/23 02/09/23 02/09/23 15:24 15:24 15:24 WBC RBC Hgb Hct MCV MCH MCHC RDW Std Deviation RDW Coeff of [place] Plt Count MPV Immature Gran % (Auto) Neut % (Auto) Lymph % (Auto) [place] % (Auto) Eos % (Auto) Baso % (Auto) Absolute Neuts (auto) Absolute Lymphs (auto) Nucleated RBC % Sodium Potassium Chloride Carbon Dioxide Anion Gap BUN Creatinine Estim Creat Clear Calc Est GFR (MDRD) Af Amer Cancelled Est GFR (MDRD) Non-Af 65 Cancelled BUN/Creatinine Ratio 17.2 Cancelled Glucose 157 H Calcium Troponin I High Sens B-Natriuretic Peptide 02/09/23 02/09/23 02/09/23 15:24 15:24 19:17 WBC RBC Hgb Hct MCV MCH MCHC RDW Std Deviation RDW Coeff of [place] Plt Count MPV Immature Gran % (Auto) Neut % (Auto) Lymph % (Auto) [place] % (Auto) Eos % (Auto) Baso % (Auto) Absolute Neuts (auto) Absolute Lymphs (auto) Nucleated RBC % Sodium Potassium Chloride Carbon Dioxide Anion Gap BUN Creatinine Estim Creat Clear Calc Est GFR (MDRD) Af Amer Est GFR (MDRD) Non-Af BUN/Creatinine Ratio Glucose Cancelled Calcium 8.6 Cancelled Troponin I High Sens 83 H 80 H B-Natriuretic Peptide 121.6 H Radiography Diagnostic Testing: Clinical Impression(s) from Imaging Studies Chest CTA 02/09/23 15:09 IMPRESSION: Normal CTA chest examination, without a demonstrated pulmonary embolism or arterial dissection. No acute pulmonary findings. Electronically Signed: Trung Ortiz MD at 17:28 EST , EKG Initial EKG: Attestation: I personally reviewed and interpreted this EKG as follows: Comments: Sinus rhythm with a rate of [address] changes with old inferior infarct noted. Prior EKG tracings: available for review Prior: Unchanged Discharge Plan Triage Chief Complaint: Shortness of Breath ED Provider: Missael West Dx/Rx/DC Orders Clinical Impression: Dyspnea Instructions: ED Dyspnea Prescriptions: No Action Farxiga 10 mg tablet 10 mg PO DAILY furosemide [Lasix] 80 mg tablet 80 mg PO DAILY insulin lispro [Humalog KwikPen Insulin] 100 unit/mL insulin pen 24 unit subcut TID nortriptyline 25 mg capsule 25 mg PO DAILY latanoprost 2.5 ML drops 1 drp EACH EYE TID ropinirole 0.5 mg tablet 1 mg PO QHS ondansetron 4 mg Tablet,Disintegrating 4 mg PO Q6H PRN (Reason: Nausea) albuterol sulfate 2.5 mg /3 mL (0.083 %) Solution For Nebulization 2.5 mg inhalation Q4H.RT PRN (Reason: WHEEZING) 30 Days Qty: 360 0RF albuterol sulfate 90 mcg/actuation HFA aerosol inhaler 2 puff inhalation Q6H PRN (Reason: shortness of breath or wheezing) Qty: 8.5 0RF Trulicity 3 mg/0.5 mL Pen Injector 3 mg SUBCUT QWEEK insulin glargine-yfgn 100 unit/mL (3 mL) Insulin Pen 40 unit subcut BID gabapentin 300 mg capsule 900 mg PO Q8H pantoprazole [Protonix] 40 mg tablet,delayed release (DR/EC) 40 mg PO DAILY nitroglycerin 0.4 mg tablet, sublingual 0.4 mg SL Q5M PRN (Reason: Chest Pain) Qty: 25 3RF carvedilol 6.25 mg tablet 6.25 mg PO BID Qty: 180 3RF Rx Instructions: must administer with a meal/food isosorbide mononitrate 60 mg tablet extended release 24 hr 60 mg PO DAILY Qty: 90 3RF rosuvastatin 40 mg tablet 40 mg PO QHS Qty: 90 3RF potassium chloride [Klor-Con M20] 20 mEq tablet,ER particles/crystals 20 meq PO DAILY Qty: 90 3RF Primary Care Provider: Tomás Patino Referrals: Tomás Patino MD [Primary Care Provider] - 3-5 Days Activity Restrictions/Additional Instructions: Follow-up with the Coumadin clinic to get started back on your Coumadin. Disposition Disposition: Home, Self Care
[2023-02-09] MEDS: 0.9% Normal Saline (1000mL) 1,000 ML 150 ML IV (15:33)
[2023-02-09 15:47] LABS: Absolute Lymphocyte Count 1.05 X10^3/uL (0.83-4.51); Absolute Neutrophil Count 4.2 X10^3/uL (2.0-7.7); Basophil# 0.05 X10^3/uL; Basophil% 0.8 % (0-1); Eosinophil# 0.14 X10^3/uL; Eosinophils% 2.3 % (0-5); Hematocrit 33.2 % (40-54); Hemoglobin 9.2 g/dL (13.0-16.5); Lymphocyte # 1.05 X10^3/ul (0.83-4.51); Lymphocyte % 17.4 % (19-41); Mean Corp Hgb Conc 27.7 g/dL (32-36); Mean Corpuscular Hgb 19.9 pg (27.0-32.0); Mean Corpuscular Volume 71.7 fL (80-94); Mean Platelet Vol. 9.2 fl (6.2-12.0); Monocyte# 0.58 X10^3/uL; Monocyte% 9.6 % (0-10); NRBC Flagged by Analyzer 0 % (0-5); Neutrophil # 4.18 X10^3/uL (2.7-7.7); Neutrophil % 69.4 % (47-70); Platelet Count 165 K/mm3 (150-450); RBC Distribution Width CV 18.6 % (11.6-14.6); Red Blood Count 4.63 M/mm3 (4.6-6.2)
[2023-02-09 16:00] LABS: Anion Gap 9 (5-15); BUN 20 mg/dL (7-18); BUN/Creat Ratio 17.2 RATIO (10-20); Calcium,Total 8.6 mg/dL (8.5-10.1); Chloride 102 mmol/L (98-107); Creatinine, Serum 1.16 mg/dL (0.70-1.30); EST Glomerular Filtration Rate 65 mL/min (>60); Est Glom Filt Rate - Afr Amer 79 mL/min (>60); Estimated Creatinine Clearance 51.59 ml/min; Glucose 157 mg/dL (74-106); Sodium Level 140 mmol/L (136-145); Troponin-I HS 83 pg/mL (3.0-78.0)
[2023-02-09 16:06] LABS: BNP,B-Type NATRIURETIC PEPTIDE 121.6 pg/mL (0-100)
[2023-02-09] MEDS: Aspirin 81 MG TAB.CHEW 162 MG PO (16:32)
[2023-02-09 20:01] LABS: Troponin-I HS 80 pg/mL (3.0-78.0)
[2023-02-09] MEDS: Potassium Chloride Oral Tablet 20 MEQ 40 MEQ PO (20:24)
== END 2023-02-09 20:46 | disposition home or self-care (01) ==
PROVIDERS: Emergency Provider Emergency Medicine; PCP Family Medicine; Visit Provider Emergency Medicine
DX: R06.00 Dyspnea, unspecified (principal); I11.0 Hypertensive heart disease with heart failure; I50.9 Heart failure, unspecified; E11.9 Type 2 diabetes mellitus without complications; Z79.4 Long term (current) use of insulin; Z87.891 Personal history of nicotine dependence; E78.00 Pure hypercholesterolemia, unspecified; I25.10 Atherosclerotic heart disease of native coronary artery without angina pectoris; I25.2 Old myocardial infarction; I5A Non-ischemic myocardial injury (non-traumatic); Z86.73 Personal history of transient ischemic attack (TIA), and cerebral infarction without residual deficits; G25.81 Restless legs syndrome; Z79.899 Other long term (current) drug therapy; Z79.85 Long-term (current) use of injectable non-insulin antidiabetic drugs; Z95.5 Presence of coronary angioplasty implant and graft; Z95.810 Presence of automatic (implantable) cardiac defibrillator
CPT/HCPCS: 71275; 80048; 83880; 84484; 85025; 87428; 93005; 94760; 96360; 96361; 99284; J7030; Q9967; A4216

== ENCOUNTER → 2023-03-12 | Outpatient (CLI) | payer MEDICARE, OTHER, SELFPAY ==
[2017-11-06 10:25] VITALS: BMI 37.2
[2023-03-12 12:00] LABS: PSA,Total- Diagnostic 5.73 ng/mL (0.0-4.0)
== END | disposition home or self-care (01) ==
LOC: LAB 11:13
PROVIDERS: PCP Family Medicine; Referring Provider Urology; Visit Provider Urology
DX: N40.1 Benign prostatic hyperplasia with lower urinary tract symptoms (principal)
CPT/HCPCS: 36415; 84153

== ENCOUNTER 2023-04-17 17:52 | Inpatient (IN) | payer MEDICARE, OTHER, SELFPAY ==
[2017-11-06 10:25] VITALS: BMI 37.2
[2023-04-17] VITALS (19 sets, daily range): BP systolic 87–152; BP diastolic 52–94; PULSE 91–107; RESP 18–30; TEMP 36.6–39.6; O2SAT 93–100; BMI 39.6; BMI 38.9
--- NOTE | 2023-04-17 18:07 | RAD_ITS ---
INDICATION: chest pain EXAMINATION/TECHNIQUE: X-RAY - XR Chest 1 View COMPARISON: November 07, 2022 FINDINGS: LINES/DEVICES: Stable left-sided pacemaker. LUNGS: No consolidation, edema or effusion. No pneumothorax. MEDIASTINUM AND CARDIOVASCULAR STRUCTURES: Cardiac silhouette not enlarged. Central airways and mediastinal contour are unremarkable. BONES AND SOFT TISSUES: Degenerative vertebral changes. RAD/Chest 1 View (Portable) IMPRESSION: No radiographic evidence of acute cardiopulmonary disease. Electronically Signed: Diaz Keating DO at 18:18 EST ,
--- NOTE | 2023-04-17 18:13 | EX.ED.DYSGE1 ---
HPI History of Present Illness Chief Complaint: Chest Pain Detail of Chief Complaint: Midsternal chest pressure and tightness and fever Informant: patient Onset/Context/Timing Onset: Today and Hours (Onset of chest pressure 1400) Context: Sudden Onset Timing: Continuous Quality: Tight pressure sensation Location: Midsternal Current Severity: Moderate Maximum Severity: Severe Worsened by: Nothing Relieved by: Nothing Associated Symptoms Associated Symptoms: Subjective fever, slight cough. Also complains of nausea, shortness of lisa Narrative Narrative: Patient is a 77-year-old male with history of type 2 diabetes requiring insulin, hypercholesterolemia, coronary disease, congestive heart failure, pulmonary disease who has a AICD in place presents by ambulance because of chest pressure/tightness that started at 1400 while sitting in his chair watching TV. He became diaphoretic. He reported shortness of breath and slight nausea. He denies vomiting. He denies radiation of the discomfort. He denies headache, visual, ocular auditory symptoms. He denies rhinorrhea or postnasal drainage. He denies sore throat. He does endorse slight cough. The cough is nonproductive. He denies abdominal pain, black or maroon-colored stool. He states he did not have a bowel movement today. He denies dysuria, frequency, urgency or hematuria. He does have history of GERD/reflux and states this pain is different. He states this pain is horrible . 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 Gastric reflux Gastritis GI bleed HFrEF (heart failure with reduced ejection fraction) High cholesterol History of CHF (congestive heart failure) History of deep vein thrombosis (DVT) of lower extremity History of echocardiogram History of edema History of heart attack History of irregular heartbeat History of non-ST elevation myocardial infarction (NSTEMI) (11/05/16) History of renal disease History of steroid therapy History of stress test Hyperlipidemia Insulin dependent diabetes mellitus Ischemic cardiomyopathy Leg cramps Localized edema Melena Morbid obesity with BMI of 40.0-44.9, adult Nondisp fracture of fifth left metatarsal bone with routine healing Nonrheumatic tricuspid (valve) insufficiency Nonsustained ventricular tachycardia Normocytic anemia 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 Other specified peripheral vascular diseases Paroxysmal atrial flutter Peripheral vascular occlusive disease Restless legs Shortness of breath on exertion Syncope TIA (transient ischemic attack) Type 2 diabetes mellitus Ulcer of left lower extremity with fat layer exposed Ulcer of right lower extremity Ulcer of right lower extremity with fat layer exposed Ulcer of right lower extremity with fat layer exposed Uncontrolled type 2 diabetes mellitus Walker as ambulation aid Walking difficulty due to ankle and foot Wears dentures Wears glasses Xerosis cutis Home Medications latanoprost 0.005 % eye drops 1 drp EACH EYE TID glaucoma 11/17/18 [History Last Taken 02/09/23] ropinirole 0.5 mg tablet 1 mg PO QHS legs 12/10/21 [History Last Taken 02/08/23] ondansetron 4 mg disintegrating tablet 4 mg PO Q6H PRN Nausea 03/16/22 [History Last Taken Unknown] albuterol sulfate 2.5 mg/3 mL (0.083 %) solution for nebulization 2.5 mg (3 mL) inhalation Q4H.RT PRN WHEEZING 30 days #360 mL 04/14/22 [Rx Last Taken 02/09/23] albuterol sulfate 90 mcg/actuation aerosol inhaler 2 puff inhalation Q6H PRN shortness of breath or wheezing #8.5 grams 04/16/22 [Rx Last Taken 02/09/23] dapagliflozin propanediol 10 mg tablet (Farxiga) 10 mg PO DAILY diabetes 04/18/22 [History Last Taken 02/09/23] nitroglycerin 0.4 mg sublingual tablet 0.4 mg sublingual Q5M PRN Chest Pain #25 tabs 04/21/22 [Rx Last Taken Unknown] dulaglutide 3 mg/0.5 mL subcutaneous pen injector (Trulicity) 3 mg subcut QWEEK diabetes 05/20/22 [History Last Taken 02/08/23] carvedilol 6.25 mg tablet 6.25 mg PO BID This is a dose increase #180 tabs 08/07/22 [Rx Last Taken 01/30/23 03:30] isosorbide mononitrate 60 mg tablet,extended release 24 hr 60 mg PO DAILY #90 tabs 08/07/22 [Rx Last Taken 01/30/23 03:30] insulin lispro 100 unit/mL subcutaneous pen (Humalog KwikPen (U-100) Insulin) 24 unit subcut TID blood sugar 10/30/22 [History Last Taken 02/09/23] insulin glargine-yfgn 100 unit/mL (3 mL) subcutaneous pen 40 unit subcut BID blood sugar 11/04/22 [History Last Taken 02/09/23] potassium chloride 20 mEq tablet,extended release(part/cryst) (Klor-Con M) 20 meq PO DAILY #90 tabs 11/13/22 [Rx Last Taken 02/09/23] nortriptyline 25 mg capsule 25 mg PO DAILY 11/24/22 [History Last Taken 02/09/23] furosemide 80 mg tablet (Lasix) 80 mg PO DAILY 01/21/23 [History Last Taken 02/09/23] gabapentin 300 mg capsule 900 mg PO Q8H 02/09/23 [History Last Taken 02/09/23] pantoprazole 40 mg tablet,delayed release See Rx Instructions .Route .COMPLEX #30 tabs 03/16/23 [Rx Last Taken Unknown] rosuvastatin 40 mg tablet 40 mg PO QHS Cholesterol #90 tabs 03/24/23 [Rx Last Taken Unknown] Allergy/AdvReac Type Severity Reaction Status Date / Time ceftriaxone sodium Allergy Rash Verified 04/08/23 14:17 [From Rocephin] milk AdvReac Diarrhea Verified 04/08/23 14:17 morphine AdvReac hallucinati Verified 04/08/23 14:17 ons Family History Father , Age 78 Prostate cancer Mother , Age 80 CVA (cerebral vascular accident) Sister Congestive heart failure Diabetes Hypertension Hyperlipidemia Atrial fibrillation CAD (coronary artery disease) Cardiac defibrillator in situ Sister Breast cancer Sister Breast cancer Brother CAD (coronary artery disease) Myocardial infarction Diabetes Brother Diabetes Brother , Age 74 COPD (chronic obstructive pulmonary disease) Sister Alive and well Surgical History H/O colonoscopy with polypectomy (11/2017) History of angioplasty of peripheral vessel History of cardiac catheterization History of colonoscopy History of coronary artery stent placement (12/15/14) History of detached retina repair History of electrophysiologic study (11/23/02) History of esophagogastroduodenoscopy (EGD) History of implantable cardiac defibrillator (ICD) (11/19/17) History of implantable cardiac defibrillator (ICD) History of left heart catheterization (12/06/18) History of radiofrequency ablation procedure for cardiac arrhythmia (07/01/11) ICD (implantable cardioverter-defibrillator) in place Social History household members: spouse housing: house current occupational status: retired pets and animals: Yes (2 dogs, 2 cats) Smoking Status: Former smoker pack-years: 20 how long ago did patient quit smokin years ago alcohol intake: never caffeine: Yes Type: coffee Number of servings: 1 ROS ROS ED Constitutional Constitutional ED: Reports fever(s) and subjective; Denies chills, sweats or weight loss Eyes Eyes: Denies blurry vision or change in vision ENT ENT ED: Denies ear pain, rhinorrhea or sore throat Cardiovascular Cardiovascular: Reports chest pain; Denies orthopnea, palpitations, paroxysmal nocturnal dyspnea or racing heartbeat Respiratory/Chest Respiratory/Chest: Reports cough, dyspnea and dyspnea on exertion; Denies orthopnea or paroxysmal nocturnal dyspnea Gastrointestinal Gastrointestinal: Denies abdominal pain, melena, nausea or vomiting Genitourinary Genitourinary ED: Denies dysuria, hematuria or urinary frequency Musculoskeletal Musculoskeletal: Denies back pain, myalgias or neck pain Integumentary Denies rash Neurologic Neurologic: Reports weakness; Denies headache(s) or paresthesias Psychiatric Psychiatric: Reports anxiety Endocrine Endocrinology: Denies cold intolerance or heat intolerance Hematologic/Lymphatic Hematologic/Lymphatic: Reports systems reviewed and no addt'l complaints, except as documented and easy bleeding EXAM Physical Exam Const Vital Signs: 04/17/23 17:53 04/17/23 18:02 04/17/23 18:22 Temperature 100.1 F H Temperature Source Oral Pulse Rate 106 H 105 H Respiratory Rate 30 H Blood Pressure 137/60 H 117/62 Blood Pressure Mean 85 Pulse Ox 93 98 Oxygen Delivery Method Room Air Nasal Cannula Oxygen Flow Rate (L/min) 2 04/17/23 18:31 04/17/23 19:00 04/17/23 20:00 Temperature 100.7 F H 103.2 F H 101.0 F H Temperature Source Oral Oral Oral Pulse Rate 107 H 104 H 102 H Respiratory Rate 20 H 20 H 21 H Blood Pressure 111/60 102/71 126/87 H Blood Pressure Mean 77 81 100 Pulse Ox 96 96 96 Oxygen Delivery Method Room Air Room Air Room Air Oxygen Flow Rate (L/min) 04/17/23 20:43 04/17/23 21:00 Temperature 97.8 F Temperature Source Oral Pulse Rate 100 100 Respiratory Rate 27 H 21 H Blood Pressure 99/57 L 112/61 Blood Pressure Mean 71 78 Pulse Ox 100 96 Oxygen Delivery Method Nasal Cannula Room Air Oxygen Flow Rate (L/min) 3 Positive well nourished, well developed and obese Constitutional Narrative: Patient appears flushed. He does not appear well. He is awake but not alert. Vitals are remarkable temperature 100.1. He is tachycardic and tachypneic. He is not hypoxic on room air. General Appearance ED: well developed; Negative for cyanotic, diaphoretic, NAD or pallor Nutritional Appearance: obese HEENT Reports dry mucous membranes HEENT Narrative: Head is atraumatic and normocephalic. Ears are normal. Nares are patent. Posterior pharynx is normal. Mouth ED: Yes dry mucous membranes Mouth: dry mucous membranes Eyes PERRL and EOMs intact bilaterally General Eye ED: Negative for pale conjunctiva or scleral icterus Neck no lymphadenopathy, supple and no JVD Neck Narrative: Trachea is midline. There is no carotid bruits. Chest Wall inspection of chest normal and palpation of chest normal Resp normal respiratory effort and clear to auscultation bilaterally Auscultation: rales bilateral base; Negative for rhonchi or wheezes Cardio regular rhythm, S1 normal heart sound, S2 normal heart sound and no murmurs Rate: tachycardic GI normal to inspection, nondistended, normoactive bowel sounds, non-tender, non-distended and no masses; Negative for hepatosplenomegaly Back/Spine no CVA tenderness Extremity General Extremety ED: Yes edema General Extremity: edema Neuro oriented x3, CN's II-XII intact bilaterally and no sensory deficits noted Sensorium / Orientation: Negative for alert Motor Exam: strength 5/5 throughout Psych Mood & Affect: depressed Skin no rashes or lesions noted, no wounds and No skin turgor normal General Skin Exam: Negative for jaundice or pallor MDM MDM MDM Narrative Medical decision making narrative: Patient's chest pain is concerning for coronary disease. With him having a fever, slight cough and tachypnea and need to evaluate for pneumonia or viral illness. Cardiac and infectious workup was undertaken. Prior records were reviewed. History & Record Review Additional record(s) reviewed:: Prior ED visit and Prior labs Lab Data Attestation: I reviewed the patient's lab results. Lab results narrative: White count is elevated at 13.3 thousand with shift. There is no bandemia. Patient has microcytic anemia with an MCV of 67 and hemoglobin 10.5. Electrolyte panel reveals potassium of 3.0. CO2 is elevated at 33. He patient has not had an elevated CO2 in the past. BUN and creatinine are elevated at 38 and 1.51. Glucose is elevated 180 with a normal anion gap. Lactate is elevated 2.2. High-sensitivity troponin is 92. Patient has elevated troponin based on prior labs. UA is unremarkable. Labs: Laboratory Results - last 24 hr 04/17/23 04/17/23 04/17/23 18:00 18:32 20:01 WBC 13.3 H RBC 5.61 Hgb 10.5 L Hct 38.1 L MCV 67.9 L MCH 18.7 L MCHC 27.6 L RDW Std Deviation 43.6 RDW Coeff of Galo 19.3 H Plt Count 181 MPV 9.3 Immature Gran % (Auto) 0.400 Neut % (Auto) 87.7 H Lymph % (Auto) 4.3 L [place] % (Auto) 6.0 Eos % (Auto) 1.0 Baso % (Auto) 0.6 Absolute Neuts (auto) 11.6 H Absolute Lymphs (auto) 0.57 L Nucleated RBC % 0 Differential Comment SCANNED Sodium 137 Potassium 3.0 L Chloride 97 L Carbon Dioxide 33.0 H Anion Gap 7 BUN 38 H Creatinine 1.51 H Estim Creat Clear Calc 51.25 Est GFR (MDRD) Af Amer 58 L Est GFR (MDRD) Non-Af 48 L BUN/Creatinine Ratio 25.2 H Glucose 180 H Lactic Acid 2.2 H* Calcium 9.2 Troponin I High Sens 92 H 93 H Urine Color Yellow Urine Clarity Clear Urine pH 5.0 Ur Specific [place] 1.010 Urine Protein 15 H Urine Glucose (UA) 1000 H Urine Ketones Negative Urine Occult Blood 10 H Urine Nitrite Negative Urine Bilirubin Negative Urine Urobilinogen Normal Ur Leukocyte Esterase 100 H Urine RBC 0 SEEN Urine WBC 0-5 SEEN Ur Squamous Epith Cells 0 SEEN Urine Bacteria 0 SEEN Urine Mucus 0 SEEN ABG Data Attestation: I personally reviewed and interpreted this ABG as follows: Interpretation: Patient has evidence of a metabolic alkalosis. He does have an increased AA gradient. ABG results: ABG 04/17/23 20:39 Specimen Type ART Sample Site R Radial pH 7.53 H Bicarbonate Actual 29.9 H Total CO2 31 Base Excess 7 H O2 Saturation 97 O2 % 4.0 ABG pCO2 36.1 ABG pO2 79 Elijah Test Positive O2 Delivery Device Cannula Vent Mode Not entered Radiography Chest X-Ray - ED: 1 View and Read by ED Physician (Single view portable chest x-ray was independent reviewed interpreted by me as negative for any acute process. Patient has a pacemaker/defibrillator noted. Cardiac silhouette size is unremarkable. Lung parenchyma is chronic changes. There is no effusion. Is no infiltrate. Perihilar regions nor) Diagnostic Testing: Clinical Impression(s) from Imaging Studies Chest X-Ray 04/17/23 18:07 IMPRESSION: No radiographic evidence of acute cardiopulmonary disease. Electronically Signed: Diaz Keating DO at 18:18 EST Reading Location ID and State: [facility] / [place] Tel [phone], Service support , EKG Initial EKG: Attestation: I personally reviewed and interpreted this EKG as follows: Interpretation: Sinus Tachycardia (Rate is 106. [place] interval is 176 ms per cures duration 128 ms which is prolonged. QT duration is 110 ms. [place] is normal. Patient has nonspecific interventricular conduction delay and evidence of prior inferior LA. This is unchanged from prior EKG dated February 09, 2023.) Prior: Unchanged (February 09, 2023) Follow-up EKG: Attestation: I personally reviewed and interpreted this EKG as follows: Interpretation: Sinus Tachycardia (Rate is 106 with a [place] intervalOf 196 ms. QRS duration 154 ms. QT duration 334 ms. [place] is normal. There is an ossific intraventricular and conduction delay and evidence of prior inferior LA. This is unchanged from EKG that was obtained when patient arrived.) Prior: Unchanged Management Discussion w/another healthcare provider: Hospitalist (Requested CT of the chest abdomen pelvis without contrast to determine etiology of his fever and infection.), Bulk Truck Driver (Infectious disease was consulted per hospitalist request. Spoke with infectious disease person telephony engineer. Recommended meropenem since patient only has rash to cephalosporin. Also recommended acyclovir if there is concern for SOLAR ENGINEER infection. These were ordered.) and Other Treatment and Re-Evaluation :: Repeat vital signs are remarkable for tachycardia and fever of 100.7 ?F. Comments:: Shona patient's nurse informing that he was having trouble breathing. According to daughter he is more confused. Patient appears flushed. He has transmission of upper airway noises to his lungs. Suspect is due to body habitus and position. Will obtain ABG. Patient has no rhonchi, wheezing or rales noted on auscultation of the lungs anteriorly and posteriorly Since blood cultures were drawn and source is unknown and negative rapid antigen for flu, COVID and RSV will treat with antibiotics for unknown source. Based on allergies patient was treated with ciprofloxacin 100 mg and vancomycin [address] hospital[address] Ethan Poole. He requested that I speak with ID to see what input they would have. He was informed an LP is contraindicated since he is on anticoagulant. He is in agreement. He would like him scanned i.e. chest abdomen pelvis. I informed him since he has acute kidney injury hesitant to inject with contrast. Critical Care Time Critical Care Time: Yes Critical care time (excluding procedures): 30-74 minutes (33), Including time spent: (History, physical, documentation, review of prior records and laboratory results, interpretation of laboratory results and imaging independently), Discussing w/Patient &/or Family/Medical Housekeeper (Spoke with daughter since patient is encephalopathic.), Discussing w/Consultants, Arranging Admission or Transfer and - (IV fluids for dehydration) Discharge Plan Dx/Rx/DC Orders Clinical Impression: Acute encephalopathy, Creatinine elevation, Fever in adult, Systemic inflammatory response syndrome (SIRS) due to infection, ICD (implantable cardioverter-defibrillator) in place, CAD (coronary artery disease), JESSICA (obstructive sleep apnea), Acidosis, lactic, Midsternal chest pain, Anticoagulant long-term use, Acute prerenal azotemia, Acute hypoxemic respiratory failure Disposition Disposition: [facility] Care [facility]
[2023-04-17 18:16] LABS: Absolute Lymphocyte Count 0.57 X10^3/uL (0.83-4.51); Absolute Neutrophil Count 11.6 X10^3/uL (2.0-7.7); Basophil# 0.08 X10^3/uL; Basophil% 0.6 % (0-1); Eosinophil# 0.13 X10^3/uL; Hematocrit 38.1 % (40-54); Hemoglobin 10.5 g/dL (13.0-16.5); Lymphocyte # 0.57 X10^3/ul (0.83-4.51); Lymphocyte % 4.3 % (19-41); Mean Corp Hgb Conc 27.6 g/dL (32-36); Mean Corpuscular Hgb 18.7 pg (27.0-32.0); Mean Corpuscular Volume 67.9 fL (80-94); Mean Platelet Vol. 9.3 fl (6.2-12.0); Monocyte# 0.79 X10^3/uL; NRBC Flagged by Analyzer 0 % (0-5); Neutrophil # 11.63 X10^3/uL (2.7-7.7); Neutrophil % 87.7 % (47-70); POSITIVE DIFFERENTIAL YES; Platelet Count 181 K/mm3 (150-450); RBC Distribution Width CV 19.3 % (11.6-14.6); RBC Distribution Width SD 43.6 fl (35.1-43.9); Red Blood Count 5.61 M/mm3 (4.6-6.2); White Blood Count 13.3 K/mm3 (4.4-11.0)
[2023-04-17 18:22] LABS: Differential Indicated SCAN CRITERIA MET
[2023-04-17] MEDS: Nitroglycerin SL (ED/IMG/CATH) 0.4 MG TABLET 0.400000000000000022 MG SL (18:22)
[2023-04-17 18:31] LABS: Anion Gap 7 (5-15); BUN 38 mg/dL (7-18); BUN/Creat Ratio 25.2 RATIO (10-20); Calcium,Total 9.2 mg/dL (8.5-10.1); Chloride 97 mmol/L (98-107); Creatinine, Serum 1.51 mg/dL (0.70-1.30); EST Glomerular Filtration Rate 48 mL/min (>60); Est Glom Filt Rate - Afr Amer 58 mL/min (>60); Estimated Creatinine Clearance 51.25 ml/min; Glucose 180 mg/dL (74-106); Sodium Level 137 mmol/L (136-145); Troponin-I HS (w/2H Reflex) 92 pg/mL (3.0-78.0)
--- OUTSIDE RECORDS SUMMARY | 2023-04-17 18:32 | XMS RPT_ITS | CCD ---
Author Name Unknown Address [address] [place] [address] Organization [facility] Care Team Providers Care Relations Coordinator Name Role Phone MARK Khanna, Melany Cordova Unavailable ESTAFANOUS, KI Unavailable Unavailable [facility], Keti Unavailable 13, Pharmacist Unavailable Radha RN, May E Unavailable Unavail able [place], Johan S Unavailable Blaz PARAFFIN 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.RODRIGUEZ, Ramiro KENDALL Primary Care Provider Radha ORTIZ, May E Unavailable [id number], Keti Unavailable 13, Pharmacist Unavailable Radha ORTIZ, May E Unavailable [place], Johan S Unavailable Blaz PARAFFIN 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.FAIZA FRIAS Daniel Primary Care Provider Del Ayala Unavailable Trev Patino MD Primary Care Provider [facility], Keti Unavailable Radha ORTIZ, May E Unavailable [place], [place] S Unavailable Del Ayala Unavailable Trev Patino MD Primary Care Provider BECKY MCCARTHY Referring Unavailable TREV PATINO Primary Care Unavailable Cristóbal RN, Kalia Unavailable Radha ORTIZ, May E Unavailable [phone] [facility], Keti Unavailable 13, Pharmacist Unavailable [place], Johan S Unavailable Del Ayala Unavailable Trev Patino MD Primary Care Provider Cristóbal RN, Kalia Unavailable Cristóbal RN, Kalia Unavailable [place], Johan S Unavailable Del Ayala Unavailable Del Ayala MD Unavailable [place], Johan S Unavailable Del Ayala MD Unavailable Cristóbal ORTIZ, Kalia Unavailable [place] SIMMONS, [place] S Unavailable [facility], Keti Unavailable TREV PATINO Primary Care Unavailable SHEREEN HOLT Attending Unavailable SUKUMAR TREV Mellissa Primary Care Unavailable SHEREEN HOLT Attending Unavailable SUKUMAR TREV Mellissa Primary Care Unavailable SHEREEN HOLT Referring Unavailable ELDERBROVERONICA, TREV Mellissa Primary Care Unavailable ELDERBROTREV MARTIN Attending Unavailable ELDERBROVERONICA, TREV Malloy Primary Care Unavailable ELDERBRORTEV MARTIN Referring Unavailable ELDERBROCK, TREV Malloy Primary Care Unavailable ELDERBROVERONICA, TREV Malloy Primary Care Unavailable ELDERBROVERONICA, TREV Malloy Primary Care Unavailable HUNG, CRISTINA Attending Unavailable QUOCF, SHEREEN Referring Unavailable ELDERBROCK, TREV Mellissa Primary Care Unavailable ELDERBROVERONICA, TREV Malloy Attending Unavailable ELDERBROVERONICA, TREV Mellissa Primary Care Unavailable ELDERBROCK, TREV Mellissa Primary Care Unavailable ELDERBROCK, TREV Mellissa Primary Care Unavailable ELDERBROVERONICA, TREV Mellissa Primary Care Unavailable SHEREEN HOLT Referring Unavailable ELDERBROCK, TREV D Primary Care Unavailable ELDERBROVERONICA, TREV Malloy Primary Care Unavailable ELDERYUMI, TREV Mellissa Primary Care Unavailable SHEREEN HOLT Attending Unavailable TREV PATINO Primary Care Unavailable TREV PATINO Attending Unavailable TREV PATINO Primary Care Unavailable TREV PATINO Primary Care Unavailable TREV PATINO Primary Care Unavailable TREV PATINO Attending Unavailable TREV PATINO Primary Care Unavailable TREV PATINO Referring Unavailable TREV PATINO Primary Care Unavailable YAYA IBARRA Attending Unavailable TREV PATINO Primary Care Unavailable TREV PATINO Primary Care Unavailable LARON MACARIO Referring Unavailable TREV PATINO Primary Care Unavailable SHEREEN HOLT Referring Unavailable Allergies Allergy Classification Reported Allergen(s) Allergy Type Date of Onset Reaction(s) Facility (2 sources) ceftriaxone Drug Allergy 7 rash [facility] Work Phone: [phone] (3 sources) cow milk; Translations: [MILK] food allergy 7 diarrhea (lactose intolerant) [facility] Work Phone: [phone] (20 sources) morphine; Translations: [MORPHINE] Drug Allergy 5 Hallucinations [facility] Work Phone: (20 sources) cefTRIAXone; Translations: [CEFTRIAXONE SODIUM] Drug Allergy 5 Other: See Comments [facility] (20 sources) cow milk allergenic extract Drug Allergy 3 GI Upset [facility] Medications Current Medications Medication Drug Class(es) Dates Sig (Normalized) Sig (Original) acetaminophen 325 mg oral tablet (3 sources) Start: 01-24-2022 End: 01-27-2022 acetaminophen 650 mg tab(s) (TYLENOL) clindamycin 300 mg oral capsule (4 sources) Lincosamide Antibacterial Start: 07-11-2021 End: 07-21-2021 take 1 capsule by mouth three times daily clindamycin (CLEOCIN) 300 mg capsule Indications: Cellulitis of skin Take 1 capsule by mouth three times daily for 10 days. 30 capsule 0 07/11/2021 07/21/2021 Active Completed/Discontinued Medications Medication Drug Class(es) Dates Sig (Normalized) Sig (Original) [id number] 200 actuat albuterol 0.09 mg/actuat metered dose inhaler (20 sources) beta2-Adrenergic Agonist Start: 11-17-2022 End: 11-17-2022 take 2 puff(s) by inhalation every six hours as needed for wheezing albuterol HFA (VENTOLIN HFA) 90 mcg/actuation inhaler Inhale 2 Puffs as instructed every 6 hours as needed for wheezing/shortness of breath. 0 11/17/2022 11/17/2022 Discontinued Problems Active Problems Problem Classification Problem Date Documented Da te Episodic/Chronic Acute myocardial infarction (5 sources) Non-ST elevation (NSTEMI) myocardial infarction; Translations: [Subsequent non-ST segment elevation myocardial infarction] Onset: 5 Resolved: 6 12-11-2014 Chronic Adjustment disorders (20 sources) Reactive depression (situational); Translations: [Adjustment disorder with depressed mood] Onset: 1 06-07-2020 Chronic Administrative/social admission (1 source) Impaired mobility; Translations: [Other reduced mobility] Episodic Cardiac dysrhythmias (20 sources) Atrial flutter; Translations: [Ventricular tachycardia] Onset: 1 08-26-2011 Chronic Chronic kidney disease (20 sources) Chronic kidney disease stage 3A ; Translations: [Stage 3a chronic kidney disease] Onset: 2 04-29-2021 Chronic Chronic kidney disease (1 source) Chronic kidney disease; Translations: [Stage 3a chronic kidney disease (HCC)] Onset: 2 Chronic obstructive pulmonary disease and bronchiectasis (20 sources) Chronic obstructive lung disease; Translations: [Chronic obstructive pulmonary disease, unspecified] Onset: 3 04-22-2022 Chronic Chronic obstructive pulmonary disease and bronchiectasis (1 source) Bronchitis; Translations: [Bronchitis, not specified as acute or chronic] Episodic Conduction disorders (20 sources) Automatic implantable cardiac defibrillator in situ; Translations: [Presence of automatic (implantable) cardiac defibrillator] 01-15-2016 Chronic Congestive heart failure; nonhypertensive (20 sources) Chronic combined systolic and diastolic heart failure; Translations: [Chronic combined systolic (congestive) and diastolic (congestive) heart failure] Onset: 9 06-05-2020 Chronic Coronary atherosclerosis and other heart disease (20 sources) Angina pectoris; Translations: [Myocardial ischemia] Onset: 1 Resolved: 6 12-11-2014 Chronic Deficiency and other anemia (5 sources) Anemia; Translations: [Anemia, unspecified] Episodic Delirium, dementia, and amnestic and other cognitive disorders (2 sources) Senile asthenia; Translations: [Age-related physical debility] Chronic Diabetes mellitus with complications (20 sources) Insulin treated type 2 diabetes mellitus; Translations: [Type 2 diabetes mellitus with diabetic chronic kidney disease] Onset: 8 04-29-2021 Chronic Diabetes mellitus with complications (6 sources) Type 1 diabetes mellitus with diabetic peripheral angiopathy without gangrene; Translations: [Type 2 diabetes mellitus with diabetic peripheral angiopathy without gangrene] Onset: 1 Resolved: 7 07-16-2010 Diabetes mellitus without complication (1 source) Diabetes mellitus without complication; Translations: [Type 2 diabetes mellitus with stage 3a chronic kidney disease, with long-term current use of insulin (HCC)] Onset: 2 Disorders of lipid metabolism (20 sources) Hyperlipidemia; Translations: [Hyperlipidemia, unspecified] Onset: 1 07-16-2010 Chronic Esophageal disorders (20 sources) Gastroesophageal reflux disease; Translations: [Gastro-esophageal reflux disease without esophagitis] Onset: 8 03-06-2008 Chronic Essential hypertension (20 sources) Hypertensive disorder; Translations: [Essential hypertension] Onset: 1 07-16-2010 Chronic Hyperplasia of prostate (20 sources) Benign prostatic hypertrophy with outflow obstruction; Translations: [Benign prostatic hyperplasia with lower urinary tract symptoms] Onset: 8 08-28-2015 Chronic Hypertension with complications and secondary hypertension (20 sources) Hypertensive heart AND chronic kidney disease stage 3; Translations: [Hypertensive heart and chronic kidney disease with heart failure and stage 1 through stage 4 chronic kidney disease, or unspecified chronic kidney disease] Onset: 1 04-29-2021 Chronic Immunizations and screening for infectious disease (1 source) Vaccination needed; Translations: [Encounter for immunization] Episodic Inflammatory conditions of male genital organs (20 sources) Balanitis; Translations: [Balanitis] Onset: 7 01-26-2018 Chronic Osteoarthritis (2 sources) Osteoarthritis of right knee joint; Translations: [Unilateral primary osteoarthritis, right knee] Chronic Other aftercare (20 sources) Anticoagulant effect; Translations: [long-term (current) use of anticoagulants] Onset: 2 Episodic Other aftercare (2 sources) Post-discharge follow-up; Translations: [Encounter for follow-up examination after completed treatment for conditions other than malignant neoplasm] Episodic Other and ill-defined heart disease (20 sources) Cardiomegaly; Translations: [Cardiomegaly] 09-16-2005 Chronic Other and unspecified benign neoplasm (2 sources) History of polyp of colon; Translations: [Personal history of colonic polyps] 10-20-2022 Episodic Other connective tissue disease (1 source) Pain of left hand; Translations: [Pain in left hand] Episodic Other gastrointestinal disorders (1 source) Diarrhea; Translations: [Diarrhea, unspecified] Episodic Other gastrointestinal disorders (2 sources) History of gastritis; Translations: [Personal history of other diseases of the digestive system] 10-20-2022 Episodic Other gastrointestinal disorders (2 sources) History of gastrointestinal bleed; Translations: [Personal history of other diseases of the digestive system] 10-20-2022 Episodic Other hereditary and degenerative nervous system conditions (20 sources) Restless legs; Translations: [Restless legs syndrome] Onset: 9 07-28-2018 Chronic Other hereditary and degenerative nervous system conditions (1 source) Restless legs syndrome; Translations: [Restless leg syndrome] Onset: 2 Chronic Other lower respiratory disease (3 sources) Cough; Translations: [Acute cough] Episodic Other lower respiratory disease (6 sources) Dyspnea; Translations: [Shortness of breath] Episodic Other nutritional; endocrine; and metabolic disorders (20 sources) Severe obesity; Translations: [Morbid (severe) obesity due to excess calories] Onset: 2 05-01-2021 Chronic Other nutritional; endocrine; and metabolic disorders (4 sources) Weight gain; Translations: [Abnormal weight gain] Episodic Other skin disorders (1 source) Facial swelling ; Translations: [Localized swelling, mass and lump, head] Episodic Peripheral and visceral atherosclerosis (20 sources) Peripheral vascular disease; Translations: [Peripheral vascular disease, unspecified] Onset: 3 11-17-2022 Chronic Residual codes; unclassified (20 sources) Obstructive sleep apnea syndrome; Translations: [Obstructive sleep apnea (adult) (pediatric)] Onset: 9 07-26-2018 Chronic Residual codes; unclassified (1 source) Obstructive sleep apnea (adult) (pediatric); Translations: [JESSICA (obstructive sleep apnea)] Onset: 9 Chronic Residual codes; unclassified (1 source) Difficulty sleeping ; Translations: [Sleep disorder, unspecified] Episodic Skin and subcutaneous tissue infections (2 sources) Cellulitis of skin; Translations: [Cellulitis, unspecified] Episodic Spondylosis; intervertebral disc disorders; other back problems (20 sources) Arthritis of facet joint of lumbar spine; Translations: [Spondylosis without myelopathy or radiculopathy, lumbar region] Onset: 8 07-14-2017 Chronic Spondylosis; intervertebral disc disorders; other back problems (1 source) Acute back pain with sciatica; Translations: [Lumbago with sciatica, left side] Episodic Substance-related disorders (4 sources) Tobacco dependence syndrome; Translations: [Nicotine dependence, unspecified, uncomplicated] Onset: 1 Resolved: 7 12-30-2016 Chronic Unclassified (14 sources) Body mass index (BMI) 34.0-34.9, adult; Translations: [Body mass index (BMI) 36.0-36.9, adult] Onset: 3 Resolved: 5 03-08-2013 Chronic Unclassified (2 sources) Implantation of automatic cardiac defibrillator ; Translations: [Presence of automatic (implantable) cardiac defibrillator] Onset: 1 07-16-2010 Unclassified (4 sources) Long-term drug therapy; Translations: [Other custodial (current) drug therapy] Onset: 1 07-16-2010 Unclassified (2 sources) Placement of stent in coronary artery ; Translations: [Presence of other cardiac implants and grafts] Onset: 1 12-30-2016 Viral infection (2 sources) Disease caused by 2019-nCoV; Translations: [COVID-19] Episodic Viral infection (1 source) COVID-19; Translations: [COVID-19] Onset: 2 Past or Other Problems Problem Classification Problem Date Documented Da te Episodic/Chronic Coronary atherosclerosis and other heart disease (20 sources) Coronary angioplasty status; Translations: [Past history of procedure] Onset: 07-16-2010 07-16-2010 Episodic Deficiency and other anemia (1 source) Anemia, unspecified; Translations: [Anemia, unspecified type] Onset: 05-27-2022 Episodic Fluid and electrolyte disorders (4 sources) Hypokalemia; Translations: [Hypokalemia] Onset: 08-18-2011 Resolved: 06-26-2015 08-18-2011 Episodic Gastrointestinal hemorrhage (6 sources) Hematochezia; Translations: [Melena] Onset: 10-14-2022 Episodic Genitourinary symptoms and ill-defined conditions (4 sources) Dysuria; Translations: [Dysuria] Onset: 01-02-2023 Episodic Lymphadenitis (20 sources) Lymphadenopathy; Translations: [Enlarged lymph nodes, unspecified] Onset: 01-31-2013 01-26-2018 Episodic Mycoses (20 sources) Onychomycosis due to dermatophyte ; Translations: [Tinea unguium] Onset: 06-05-2011 06-05-2011 Episodic Nonspecific chest pain (2 sources) Chest pain; Translations: [Other chest pain] Onset: 01-30-2016 01-30-2016 Episodic Other aftercare (2 sources) long-term (current) use of insulin; Translations: [Type 2 diabetes mellitus with diabetic neuropathy, with long-term current use of insulin (HCC)] Onset: 06-05-2020 Episodic Other and unspecified benign neoplasm (20 sources) Benign neoplasm of colon; Translations: [Benign neoplasm of colon, unspecified] Onset: 02-21-2009 02-21-2009 Episodic Other bone disease and musculoskeletal deformities (20 sources) Bone island of right femur; Translations: [Other specified disorders of bone, thigh] Onset: 09-25-2020 09-25-2020 Episodic Other circulatory disease (20 sources) Carotid bruit; Translations: [Low blood pressure] Onset: 08-18-2011 Resolved: 06-26-2015 03-14-2016 Episodic Other diseases of veins and lymphatics (20 sources) Stasis dermatitis; Translations: [Venous insufficiency (chronic) (peripheral)] Onset: 04-05-2013 04-05-2013 Episodic Other gastrointestinal disorders (20 sources) Dysphagia; Translations: [Dysphagia, unspecified] Onset: 03-01-2015 09-05-2019 Episodic Other gastrointestinal disorders (1 source) Diarrhea, unspecified; Translations: [Diarrhea, unspecified type] Onset: 05-12-2022 Episodic Other injuries and conditions due to external causes (20 sources) At moderate risk for fall; Translations: [History of falling] Onset: 12-07-2020 12-07-2020 Episodic Other lower respiratory disease (6 sources) Dyspnea, unspecified; Translations: [Dyspnea on exertion] Onset: 12-06-2014 Resolved: 06-26-2015 12-06-2014 Episodic Other lower respiratory disease (1 source) Shortness of breath; Translations: [SOB (shortness of breath)] Onset: 11-17-2022 Episodic Other non-traumatic joint disorders (20 sources) Pain in right knee; Translations: [Pain in joint, lower leg] Onset: 12-20-2020 12-20-2020 Episodic Other nutritional; endocrine; and metabolic disorders (1 source) Abnormal weight gain; Translations: [Weight gain] Onset: 11-17-2022 Episodic Other skin disorders (20 sources) Foot callus; Translations: [Corns and callosities] Onset: 10-04-2014 10-04-2014 Episodic Phlebitis; thrombophlebitis and thromboembolism (20 sources) H/O: Deep vein thrombosis; Translations: [Personal history of other venous thrombosis and embolism] Onset: 01-26-2018 01-26-2018 Episodic Syncope (20 sources) Syncope and collapse; Translations: [Vasovagal syncope] Onset: 12-16-2010 Resolved: 06-26-2015 12-16-2010 Episodic Unclassified (2 sources) Family history of stroke; Translations: [Family history of stroke] 09-06-2013 Episodic Unclassified (4 sources) Preoperative cardiovascular examination ; Translations: [Encounter for preprocedural cardiovascular examination] Onset: 11-03-2014 Resolved: 12-25-2014 11-03-2014 Urinary tract infections (3 sources) Acute cystitis; Translations: [Acute cystitis with hematuria] Onset: 05-27-2022 Episodic Results Test Name Value Interpretation Reference Range Facil ity Vital Signs Date Time Vital Sign Value Performing Clinician Facility 02-17-2023 09:35-0500 Body weight 118.39 kg Trev Patino MD Work Phone: [facility] 02-17-2023 09:35-0500 Diastolic blood pressure 84 mm[Hg] Trev Patino MD Work Phone: [facility] 02-17-2023 09:35-0500 Heart rate 98 /min Trev Patino MD Work Phone: [facility] 02-17-2023 09:35-0500 Respiratory rate 20 /min Trev Patino MD Work Phone: [facility] 02-17-2023 09:35-0500 SaO2% (BldA) [Mass fraction] 99 % Trev Patino MD Work Phone: [facility] 02-17-2023 09:35-0500 Systolic blood pressure 130 mm[Hg] Trev Patino MD Work Phone: [facility] 11-17-2022 14:08-0400 Body weight 121.56 kg Trev Patino MD Work Phone: [facility] 11-17-2022 14:08-0400 Diastolic blood pressure 68 mm[Hg] Trev Patino MD Work Phone: [facility] 11-17-2022 14:08-0400 Heart rate 92 /min Trev Patino MD Work Phone: [facility] 11-17-2022 14:08-0400 Respiratory rate 20 /min Trev Patino MD Work Phone: [facility] 11-17-2022 14:08-0400 Systolic blood pressure 110 mm[Hg] Trev Patino MD Work Phone: [facility] 10-14-2022 08:46-0400 Body height 172.7 cm Cristina Hung PA-C Work Phone: [facility] 10-14-2022 08:46-0400 Body temperature 97.11 [degF] Cristina Kenyon PA-C Work Phone: [facility] 10-14-2022 08:46-0400 Body weight 120.93 kg Cristina Kenyon PA-C Work Phone: [facility] 10-14-2022 08:46-0400 Diastolic blood pressure 72 mm[Hg] Cristina Hung PA-C Work Phone: [facility] 10-14-2022 08:46-0400 Heart rate 95 /min Cristina Kenyon PA-C Work Phone: [facility] 10-14-2022 08:46-0400 SaO2% (BldA) [Mass fraction] 100 % Cristina Kenyon PA-C Work Phone: [facility] 10-14-2022 08:46-0400 Systolic blood pressure 118 mm[Hg] Cristina Kenyon PA-C Work Phone: [facility] 09-22-2022 10:49-0400 Body weight 121.11 kg Shereenomer Kaiserhof PARAFFIN 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.PUPPET MAKER Work Phone: [facility] 09-22-2022 10:49-0400 Diastolic blood pressure 82 mm[Hg] Shereen Tannhof PARAFFIN 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.PUPPET MAKER Work Phone: [facility] 09-22-2022 10:49-0400 Heart rate 84 /min Shereen Tannhof PARAFFIN 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.PUPPET MAKER Work Phone: [facility] 09-22-2022 10:49-0400 Respiratory rate 18 /min Shereen Tannhof PARAFFIN 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.PUPPET MAKER Work Phone: [facility] 09-22-2022 10:49-0400 Systolic blood pressure 129 mm[Hg] Shereen Tannhof PARAFFIN 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.PUPPET MAKER Work Phone: [facility] 06-20-2022 14:59-0400 Body weight 123.33 kg Trev Patino MD Work Phone: [facility] 06-20-2022 14:59-0400 Diastolic blood pressure 80 mm[Hg] Trev Patino MD Work Phone: [facility] 06-20-2022 14:59-0400 Heart rate 80 /min Trev Patino MD Work Phone: [facility] 06-20-2022 14:59-0400 Respiratory rate 18 /min Trev Patino MD Work Phone: [facility] 06-20-2022 14:59-0400 Systolic blood pressure 128 mm[Hg] Trev Patino MD Work Phone: [facility] 05-12-2022 14:40-0500 Body weight 121.11 kg Shereen Tannhof PARAFFIN 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.PUPPET MAKER Work Phone: [facility] 05-12-2022 14:40-0500 Diastolic blood pressure 80 mm[Hg] Shereen Tannhof PARAFFIN 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.PUPPET MAKER Work Phone: [facility] 05-12-2022 14:40-0500 Heart rate 85 /min Shereen Tannhof PARAFFIN 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.PUPPET MAKER Work Phone: [facility] 05-12-2022 14:40-0500 Respiratory rate 20 /min Shereen Tannhof PARAFFIN 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.PUPPET MAKER Work Phone: [facility] 05-12-2022 14:40-0500 SaO2% (BldA) [Mass fraction] 98 % Shereen Tannhof PARAFFIN 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.PUPPET MAKER Work Phone: [facility] 05-12-2022 14:40-0500 Systolic blood pressure 134 mm[Hg] Shereen Tannhof PARAFFIN 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.PUPPET MAKER Work Phone: [facility] 05-05-2022 14:10-0500 Body weight 123.83 kg Shereen Tannhof PARAFFIN 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.PUPPET MAKER Work Phone: [facility] 05-05-2022 14:10-0500 Diastolic blood pressure 80 mm[Hg] Shereen Tannhof PARAFFIN 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.PUPPET MAKER Work Phone: [facility] 05-05-2022 14:10-0500 Heart rate 90 /min Shereen Tannhof PARAFFIN 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.PUPPET MAKER Work Phone: [facility] 05-05-2022 14:10-0500 Respiratory rate 22 /min Shereen Tannhof PARAFFIN 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.PUPPET MAKER Work Phone: [facility] 05-05-2022 14:10-0500 SaO2% (BldA) [Mass fraction] 97 % Shereen Kaiserhof PARAFFIN 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.PUPPET MAKER Work Phone: [facility] 05-05-2022 14:10-0500 Systolic blood pressure 130 mm[Hg] Shereen Kaiserhof PARAFFIN 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.PUPPET MAKER Work Phone: [facility] 04-22-2022 14:26-0500 Body weight 122.47 kg Trev Patino MD Work Phone: [facility] 04-22-2022 14:26-0500 Diastolic blood pressure 72 mm[Hg] Trev Patino MD Work Phone: [facility] 04-22-2022 14:26-0500 Heart rate 72 /min Trev Patino MD Work Phone: [facility] 04-22-2022 14:26-0500 Respiratory rate 18 /min Trev Patino MD Work Phone: [facility] 04-22-2022 14:26-0500 Systolic blood pressure 120 mm[Hg] Trev Patino MD Work Phone: [facility] 03-16-2022 14:06-0500 Body temperature 97.11 [degF] Becky Mccarthy PARAFFIN 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.PUPPET MAKER Work Phone: [facility] 03-16-2022 14:06-0500 Body weight 132.9 kg Becky Mccarthy PARAFFIN 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.PUPPET MAKER Work Phone: [facility] 03-16-2022 14:06-0500 Diastolic blood pressure 56 mm[Hg] Becky Mccarthy PARAFFIN 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.PUPPET MAKER Work Phone: [facility] 03-16-2022 14:06-0500 Heart rate 71 /min Becky Mccarthy PARAFFIN 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.PUPPET MAKER Work Phone: [facility] 03-16-2022 14:06-0500 Respiratory rate 22 /min Becky Mccarthy PARAFFIN 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.PUPPET MAKER Work Phone: [facility] 03-16-2022 14:06-0500 SaO2% (BldA) [Mass fraction] 97 % Becky Mccarthy PARAFFIN 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.PUPPET MAKER Work Phone: [facility] 03-16-2022 14:06-0500 Systolic blood pressure 92 mm[Hg] Becky Mccarthy PARAFFIN 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.PUPPET MAKER Work Phone: [facility] 03-08-2022 10:05-0500 Body weight 129.59 kg Trev Patino MD Work Phone: [facility] 03-08-2022 10:05-0500 Diastolic blood pressure 90 mm[Hg] Trev Patino MD Work Phone: [facility] 03-08-2022 10:05-0500 Heart rate 77 /min Trev Patino MD Work Phone: [facility] 03-08-2022 10:05-0500 Respiratory rate 20 /min Trev Patino MD Work Phone: [facility] 03-08-2022 10:05-0500 SaO2% (BldA) [Mass fraction] 97 % Trev Patino MD Work Phone: [facility] 03-08-2022 10:05-0500 Systolic blood pressure 140 mm[Hg] Trev Patino MD Work Phone: [facility] 01-29-2022 13:39-0400 Body height 172.7 cm Trev Patino MD Work Phone: [facility] 01-29-2022 13:39-0400 Body weight 125.42 kg Trev Patino MD Work Phone: [facility] 01-29-2022 13:39-0400 Diastolic blood pressure 80 mm[Hg] Trev Patino MD Work Phone: [facility] 01-29-2022 13:39-0400 Heart rate 78 /min Trev Patino MD Work Phone: [facility] 01-29-2022 13:39-0400 Respiratory rate 16 /min Trev Patino MD Work Phone: [facility] 01-29-2022 13:39-0400 SaO2% (BldA) [Mass fraction] 96 % Trev Patino MD Work Phone: [facility] 01-29-2022 13:39-0400 Systolic blood pressure 120 mm[Hg] Trev Patino MD Work Phone: [facility] 01-24-2022 16:05-0400 Body temperature 98.1 [degF] Covid 3 [facility] 01-24-2022 16:05-0400 Diastolic blood pressure 56 mm[Hg] Covid 3 [facility] 01-24-2022 16:05-0400 Heart rate 73 /min Covid 3 [facility] 01-24-2022 16:05-0400 Respiratory rate 20 /min [address] 01-24-2022 16:05-0400 SaO2% (BldA) [Mass fraction] 95 % [address] 01-24-2022 16:05-0400 Systolic blood pressure 109 mm[Hg] [address] 01-21-2022 13:43-0400 Body temperature 98.71 [degF] Becky Mccarthy PARAFFIN 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.PUPPET MAKER Work Phone: [facility] 01-21-2022 13:43-0400 Body weight 127.01 kg Becky Mccarthy PARAFFIN 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.PUPPET MAKER Work Phone: [facility] 01-21-2022 13:43-0400 Diastolic blood pressure 72 mm[Hg] Becky Mccarthy PARAFFIN 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.PUPPET MAKER Work Phone: [facility] 01-21-2022 13:43-0400 Heart rate 106 /min Becky Mccarthy PARAFFIN 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.PUPPET MAKER Work Phone: [facility] 01-21-2022 13:43-0400 Respiratory rate 22 /min Becky Mccarthy PARAFFIN 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.PUPPET MAKER Work Phone: [facility] 01-21-2022 13:43-0400 SaO2% (BldA) [Mass fraction] 96 % Becky Mccarthy PARAFFIN 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.PUPPET MAKER Work Phone: [facility] 01-21-2022 13:43-0400 Systolic blood pressure 142 mm[Hg] Becky Mccarthy PARAFFIN 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.PUPPET MAKER Work Phone: [facility] 12-12-2021 13:28-0400 Body weight 126.55 kg Shereen Kaiserhof PARAFFIN 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.PUPPET MAKER Work Phone: [facility] 12-12-2021 13:28-0400 Diastolic blood pressure 76 mm[Hg] Shereen Tannhof PARAFFIN 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.PUPPET MAKER Work Phone: [facility] 12-12-2021 13:28-0400 Heart rate 71 /min Shereen Tannhof PARAFFIN 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.PUPPET MAKER Work Phone: [facility] 12-12-2021 13:28-0400 Respiratory rate 20 /min Shereen Tannhof PARAFFIN 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.PUPPET MAKER Work Phone: [facility] 12-12-2021 13:28-0400 SaO2% (BldA) [Mass fraction] 95 % Shereen Tannhof PARAFFIN 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.PUPPET MAKER Work Phone: [facility] 12-12-2021 13:28-0400 Systolic blood pressure 120 mm[Hg] Shereen Tannhof PARAFFIN 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.PUPPET MAKER Work Phone: [facility] 11-25-2021 10:41-0400 Body temperature 97.81 [degF] Jens Wood PARAFFIN 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.PUPPET MAKER Work Phone: [facility] 11-25-2021 10:41-0400 Body weight 126.55 kg Jens Wood PARAFFIN 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.PUPPET MAKER Work Phone: [facility] 11-25-2021 10:41-0400 Diastolic blood pressure 80 mm[Hg] Jens Israel PARAFFIN 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.PUPPET MAKER Work Phone: [facility] 11-25-2021 10:41-0400 Heart rate 88 /min Jens Israel PARAFFIN 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.PUPPET MAKER Work Phone: [facility] 11-25-2021 10:41-0400 Respiratory rate 16 /min Jens Israel PARAFFIN 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.PUPPET MAKER Work Phone: [facility] 11-25-2021 10:41-0400 SaO2% (BldA) [Mass fraction] 99 % Jens Wood APRN.RODRIGUEZ Work Phone: [facility] 11-25-2021 10:41-0400 Systolic blood pressure 144 mm[Hg] Jens Wood APRN.PUPPET MAKER Work Phone: [facility] 08-09-2021 14:18-0400 Body temperature 99.39 [degF] Ramiro Null APRN.PUPPET MAKER, DNP Work Phone: [facility] 08-09-2021 14:18-0400 Body weight 122.47 kg Ramiro Null APRN.PUPPET MAKER, DNP Work Phone: [facility] 08-09-2021 14:18-0400 Diastolic blood pressure 78 mm[Hg] Ramiro Null APRN.PUPPET MAKER, DNP Work Phone: [facility] 08-09-2021 14:18-0400 Heart rate 81 /min Ramiro Null APRN.PUPPET MAKER, DNP Work Phone: [facility] 08-09-2021 14:18-0400 Respiratory rate 20 /min Ramiro Null APRN.PUPPET MAKER, DNP Work Phone: [facility] 08-09-2021 14:18-0400 SaO2% (BldA) [Mass fraction] 95 % Ramiro Null APRN.PUPPET MAKER, DNP Work Phone: [facility] 08-09-2021 14:18-0400 Systolic blood pressure 138 mm[Hg] Ramiro Null APRN.PUPPET MAKER, DNP Work Phone: [facility] 07-29-2021 13:14-0400 Body weight 124.29 kg Ramiro Null APRN.PUPPET MAKER, DNP Work Phone: [facility] 07-29-2021 13:14-0400 Diastolic blood pressure 80 mm[Hg] Ramiro Null APRN.PUPPET MAKER, DNP Work Phone: [facility] 07-29-2021 13:14-0400 Heart rate 84 /min Ramiro Null APRN.PUPPET MAKER, DNP Work Phone: [facility] 07-29-2021 13:14-0400 Respiratory rate 20 /min Ramiro Blaz PARAFFIN 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.PUPPET MAKER, DNP Work Phone: [facility] 07-29-2021 13:14-0400 SaO2% (BldA) [Mass fraction] 99 % Ramiro Blaz PARAFFIN 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.PUPPET MAKER, DNP Work Phone: [facility] 07-29-2021 13:14-0400 Systolic blood pressure 128 mm[Hg] Ramiro Blaz PARAFFIN 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.PUPPET MAKER, DNP Work Phone: [facility] 07-17-2021 10:55-0400 Body weight 124.74 kg Shereen Tannhof PARAFFIN 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.PUPPET MAKER Work Phone: [facility] 07-17-2021 10:55-0400 Diastolic blood pressure 72 mm[Hg] Shereen Tannhof PARAFFIN 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.PUPPET MAKER Work Phone: [facility] 07-17-2021 10:55-0400 Heart rate 70 /min Shereen Tannhof PARAFFIN 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.PUPPET MAKER Work Phone: [facility] 07-17-2021 10:55-0400 Respiratory rate 20 /min Shereen Tannhof PARAFFIN 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.PUPPET MAKER Work Phone: [facility] 07-17-2021 10:55-0400 SaO2% (BldA) [Mass fraction] 97 % Shereen Tannhof PARAFFIN 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.PUPPET MAKER Work Phone: [facility] 07-17-2021 10:55-0400 Systolic blood pressure 120 mm[Hg] Shereen Tannhof PARAFFIN 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.PUPPET MAKER Work Phone: [facility] 07-15-2021 12:42-0400 Body temperature 98.2 [degF] Tessie Athy PA-C Work Phone: [facility] 07-15-2021 12:42-0400 Body weight 125.01 kg Tessie Athy PA-C Work Phone: [facility] 07-15-2021 12:42-0400 Diastolic blood pressure 86 mm[Hg] Tessie Athy PA-C Work Phone: [facility] 07-15-2021 12:42-0400 Heart rate 94 /min Tessiegeorge Altamiranovenita PA-C Work Phone: [facility] 07-15-2021 12:42-0400 Respiratory rate 24 /min Tessie Altamiranovenita PA-C Work Phone: [facility] 07-15-2021 12:42-0400 SaO2% (BldA) [Mass fraction] 97 % Tessie Altamiranoy PA-C Work Phone: [facility] 07-15-2021 12:42-0400 Systolic blood pressure 146 mm[Hg] Tessiegeorge Altamiranovenita PA-C Work Phone: [facility] 01-01-2017 14:05-0400 BMI (Body Mass Index) 38.16 kg/m2 Melany Khanna PA-C [facility] Work Phone: 01-01-2017 14:05-0400 BP Diastolic 80 mm[Hg] Melany Khanna PA-C [facility] Work Phone: 01-01-2017 14:05-0400 BP Systolic 134 mm[Hg] [facility] Work Phone: 01-01-2017 14:05-0400 Height 172.72 cm [facility] Work Phone: 01-01-2017 14:05-0400 Pulse (Heart Rate) 64 /min [facility] Work Phone: 01-01-2017 14:05-0400 Respiratory Rate 20 /min [facility] Work Phone: 01-01-2017 14:05-0400 Weight 113.85 kg [facility] Work Phone: 03-14-2016 08:34-0500 BSA (Body Surface Area) 2.21 m2 Melany Khanna PA-C [facility] Work Phone: 03-29-2015 09:30-0500 BP Diastolic 90 mm[Hg] Melany Khanna PA-C [facility] Work Phone: 03-29-2015 09:30-0500 BP Diastolic 96 mm[Hg] Melany Khanna PA-C [facility] Work Phone: 03-29-2015 09:30-0500 BP Systolic 120 mm[Hg] Melany Khanna PA-C [facility] Work Phone: 03-29-2015 09:30-0500 BP Systolic 122 mm[Hg] Melany Khanna PA-C [facility] Work Phone: 03-29-2015 09:30-0500 Pulse (Heart Rate) 72 /min Melany Khanna PA-C [facility] Work Phone: 03-29-2015 09:30-0500 Pulse (Heart Rate) 60 /min Melany Khanna PA-C [facility] Work Phone: Encounters Encounter Date Encounter Type Care Provider Facility Start: 03-19-2023 End: 03-19-2023 ambulatory TREV PATINO Facility:[facility] Start: 03-11-2023 Telephone encounter [facility] Ambulatory Telemanagement Procedures Date Procedure Procedure Detail Performing Clinician Start: 02-24-2023 Prothrombin time [facility] Pr ovider Start: 01-02-2023 PFIZER-BIONTECH COVI D-19 VACCINE ( SEASON) AGE 12+ YR Trev Patino MD Work Phone: Start: 01-02-2023 INFLUENZA VACCINE, P RSV FREE, AGE 65+ YR, HIGH DOSE, QUADRIVALENT (FLUZONE HIGH-DOSE) Trev Patino MD Work Phone: Start: 07-21-2022 Arthrocentesis aspir &/inj major jt/bursa w/o us Yaya Ibarra MD Work Phone: Start: 05-05-2022 Urnls dip stick/tabl et rgnt auto w/o microscopy Shereen Holt PARAFFIN 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.PUPPET MAKER Work Phone: Start: 01-18-2022 PFIZER-BIONTECH COVI D-19 BIVALENT BOOSTER VACCINE, AGE 12+ YR Michel Wiggins DO Work Phone: Start: 01-18-2022 INFLUENZA SEASONAL QUADRIVALENT HIGH DOSE AGE 65+ Delvin Aggarwal MD Work Phone: Start: 09-05-2021 Arthrocentesis aspir &/inj major jt/bursa w/o us aYya Ibarra MD Work Phone: Start: 07-25-2021 PFIZER-BIONTECH COVI D-19 VACCINE, AGE 12+ YR (CONTRERAS TOP) Alex Genao MD Work Phone: Start: 07-03-2021 Prothrombin time [facility] Pr ovider Start: 01-06-2018 Colonoscopy Kelsie yoon [facility] Start: 01-30-2017 End: 02-02-2017 Prgrmng dev eval implantable in persn 1 ld lani Perry MD Start: 10-30-2016 End: 12-17-2016 Follow Up Appt 3 months Tasha Rogers Start: 10-30-2016 End: 12-17-2016 Pacer Clinic Johan Perry MD Start: 10-30-2016 End: 10-30-2016 Prgrmng dev eval implantable in persn 1 ld lani Perry MD Start: 09-04-2016 End: 12-17-2016 Follow Up Appt 3 months Tasha Rogers Start: 09-04-2016 End: 12-17-2016 LEANN Perry MD Start: 07-30-2016 End: 11-17-2016 Follow Up Appt 3 months Tasha Rogers Start: 07-30-2016 End: 11-17-2016 Pacer Clinic Johan Perry MD Start: 07-30-2016 End: 07-30-2016 Prgrmng dev eval implantable in persn 1 ld lani Perry MD Start: 06-19-2016 End: 06-19-2016 *BMP Johan ePrry MD Start: 06-19-2016 End: 06-19-2016 TWISTER TENDER PAPER Johan Perry MD Start: 06-19-2016 End: 11-17-2016 Follow Up Appt 3 months Tasha Rogers Start: 06-19-2016 End: 06-19-2016 Magnesium [Mass/volume] in Serum or Plasma Johan Perry MD Start: 06-19-2016 End: 11-17-2016 Pacer Jeanne Perry MD Start: 06-19-2016 End: 06-23-2016 Prgrmng dev eval implantable in persn 1 ld lani Perry MD Start: 06-19-2016 End: 06-20-2016 Referral to classified ad taker Johan Perry MD Start: 05-21-2016 End: 05-21-2016 *Hepatic Function Panel Tasha Rogers Start: 05-21-2016 End: 05-21-2016 Lipid 1996 panel - Serum or Plasma Johan Perry MD Start: 04-30-2016 End: 11-17-2016 Follow Up Appt 3 months Tasha Rogers Start: 04-30-2016 End: 11-17-2016 Pacer Clinic Johan Perry MD Start: 04-30-2016 End: 04-30-2016 Prgrmng dev eval implantable in persn 1 ld dfb Johan Perry MD Start: 03-14-2016 End: 04-01-2016 Carotid duplex Johan Perry MD Start: 03-14-2016 End: 03-14-2016 Follow Up Appt 3 months Tasha Rogers Start: 03-14-2016 End: 03-14-2016 INR in Platelet poor plasma by Coagulation assay Johan Perry MD Start: 03-14-2016 End: 03-14-2016 LEANN Perry MD Start: 01-30-2016 End: 01-30-2016 *BMP Johan Perry MD Start: 01-30-2016 End: 01-30-2016 CBC W Auto Differential panel - Blood Johan Perry MD Start: 01-30-2016 End: 02-08-2016 Chest x-ray Johan Perry MD Start: 01-30-2016 End: 01-30-2016 Ecg routine ecg w/least 12 lds w/i&r Johan Perry MD Start: 01-30-2016 End: 01-30-2016 Follow Up Appt 6 weeks Johan Perry MD Start: 01-30-2016 End: 01-30-2016 INR in Platelet poor plasma by Coagulation assay Johan Perry MD Start: 01-30-2016 End: 05-21-2016 Left Heart Cath Johan Perry MD Start: 01-30-2016 End: 01-30-2016 LEANN Perry MD Start: 01-30-2016 End: 02-08-2016 Us abdominal real time w/image limited Johan Perry MD Start: 01-23-2016 End: 11-17-2016 Follow Up Appt 3 months Melany ojeda PA-C Work Phone: Start: 01-23-2016 End: 11-17-2016 Pacer Clinic Melany Khanna PA-C Work Phone: Start: 01-23-2016 End: 01-23-2016 Prgrmng dev eval implantable in persn 1 ld dfb Melany Khanna PA-C Work Phone: Start: 11-05-2015 End: 11-20-2015 *Hepatic Function Panel Tasha Rogers Start: 11-05-2015 End: 11-20-2015 Lipid 1996 panel - Serum or Plasma Johan Perry MD Start: 10-18-2015 End: 02-08-2016 Follow Up Appt 3 months Jorge Brady MD Start: 10-18-2015 End: 02-08-2016 Pacer Clinic Jorge Brady MD Start: 10-18-2015 End: 10-18-2015 Prgrmng dev eval implantable in persn 1 ld dfb Jorge Brady MD Start: 07-18-2015 End: 02-08-2016 Follow Up Appt 3 months Tasha Rogers Start: 07-18-2015 End: 02-08-2016 Pacer Clinic Johan Perry MD Start: 07-18-2015 End: 07-18-2015 Prgrmng dev eval implantable in persn 1 ld dfb Johan Perry MD Start: 07-03-2015 End: 07-03-2015 TWISTER TENDER PAPER Johan Perry MD Start: 07-03-2015 End: 07-03-2015 Follow Up Appt 6 months Tasha Rogers Start: 06-20-2015 End: 06-20-2015 *Hepatic Function Panel Melany ojeda PA-C Work Phone: Start: 06-20-2015 End: 06-20-2015 Lipid 1996 panel - Serum or Plasma Melany Khanna PA-C Work Phone: Start: 04-13-2015 End: 02-08-2016 Follow Up Appt 3 months Tasha Rogers Start: 04-13-2015 End: 02-08-2016 Pacer Clinic Johan Perry MD Start: 04-13-2015 End: 04-14-2015 Prgrmng dev eval implantable in persn 1 ld dfb Johan Perry MD Start: 04-11-2015 End: 04-12-2015 Us abdominal real time w/image limited Johan Perry MD Start: 04-06-2015 End: 11-17-2016 External Counterpulsation Therapy Melany Khanna PA-C Work Phone: Start: 03-29-2015 End: 03-29-2015 TWISTER TENDER PAPER Melany Khanna PA-C Work Phone: Start: 03-29-2015 End: 03-29-2015 Follow Up Appt 3 months Melany ojeda PA-C Work Phone: Start: 01-05-2015 End: 03-05-2015 Follow Up Appt 3 months Melany ojeda PA-C Work Phone: Start: 01-05-2015 End: 03-05-2015 Pacer Clinic Melany Khanna PA-C Work Phone: Start: 01-05-2015 End: 01-08-2015 Prgrmng dev eval implantable in persn 1 ld dfb Melany Khanna PA-C Work Phone: Start: 12-27-2014 End: 03-05-2015 Cardiac Rehab Johan Perry MD Start: 12-27-2014 End: 12-28-2014 Documentation of current medications Johan Perry MD Start: 12-27-2014 End: 12-27-2014 Follow Up Appt 3 months Tasha Rogers Start: 12-27-2014 End: 12-27-2014 MMM Johan Perry MD Start: 12-27-2014 End: 12-28-2014 Pedal pulse taking Johan Perry MD Start: 12-11-2014 End: 12-11-2014 Follow Up BP Check Melany Khanna PA-C Work Phone: Start: 12-11-2014 End: 03-05-2015 Left Heart Cath Johan Perry MD Start: 12-06-2014 End: 12-06-2014 *BMP Melany Khanna PA-C Work Phone: Start: 12-06-2014 End: 12-07-2014 Documentation of current medications Melany Khanna PA-C Work Phone: Start: 12-06-2014 End: 12-06-2014 Follow Up Appt Other Melany marks PA-C Work Phone: Start: 11-28-2014 End: 12-21-2014 Lipid 1996 panel - Serum or Plasma Melany Khanna PA-C Work Phone: Start: 11-03-2014 End: 11-04-2014 Documentation of current medications Johan Perry MD Start: 11-03-2014 End: 11-03-2014 Follow Up Appt 6 months Tasha Rogers Start: 11-03-2014 End: 11-03-2014 MMM Johan Perry MD Start: 11-03-2014 End: 11-04-2014 Pedal pulse taking Johan Perry MD Start: 09-27-2014 End: 09-27-2014 TWISTER TENDER PAPER Melany Khanna PA-C Work Phone: Start: 09-27-2014 End: 09-28-2014 Documentation of current medications Melany Khanna PA-C Work Phone: Start: 09-27-2014 End: 09-27-2014 Ecg routine ecg w/least 12 lds w/i&r Melany Khanna PA-C Work Phone: Start: 09-27-2014 End: 11-03-2014 Follow Up Appt 3 months Tasha Rogers Start: 09-27-2014 End: 09-27-2014 Follow Up Appt 6 months Melany ojeda PA-C Work Phone: Start: 09-27-2014 End: 11-03-2014 Pacer Clinic Johan Perry MD Start: 09-27-2014 End: 09-28-2014 Pedal pulse taking Melany Khanna PA-C Work Phone: Start: 09-27-2014 End: 09-28-2014 Prgrmng dev eval implantable in persn 1 ld dfb Johan Perry MD Start: 07-28-2014 End: 08-25-2014 *Hepatic Function Panel Tasha Rogers Start: 07-28-2014 End: 08-25-2014 Lipid 1996 panel - Serum or Plasma Johan Perry MD Start: 06-12-2014 End: 09-15-2014 Follow Up Appt 3 months Melany ojeda PA-C Work Phone: Start: 06-12-2014 End: 09-15-2014 Pacer Clinic Melany Khanna PA-C Work Phone: Start: 06-12-2014 End: 06-13-2014 Prgrmng dev eval implantable in persn 1 ld dfb Melany Khanna PA-C Work Phone: Start: 03-14-2014 End: 09-15-2014 Follow Up Appt 3 months Tasha Rogers Start: 03-14-2014 End: 03-14-2014 Follow Up Appt 6 months Tasha Rogers Start: 03-14-2014 End: 03-14-2014 MM Johan Perry MD Start: 03-14-2014 End: 09-15-2014 Pacer Clinic Johan Perry MD Start: 03-14-2014 End: 03-14-2014 Prgrmng dev eval implantable in persn 1 ld dfb Johan Perry MD Start: 01-28-2014 End: 02-06-2014 *Hepatic Function Panel Tasha Rogers Start: 01-28-2014 End: 02-06-2014 Lipid 1996 panel - Serum or Plasma Johan Perry MD Start: 12-16-2013 End: 09-15-2014 Follow Up Appt 2 months Tasha Rogers Start: 12-16-2013 End: 09-15-2014 Pacer Clinic Johan Perry MD Start: 12-16-2013 End: 12-16-2013 Prgrmng dev eval implantable in persn 1 ld dfb Johan Perry MD Start: 09-15-2013 End: 09-15-2014 Follow Up Appt 3 months Tasha Rogers Start: 09-15-2013 End: 09-15-2014 Pacer Clinic Johan Perry MD Start: 09-15-2013 End: 09-15-2013 Prgrmg eval implantable in prsn dual lead dfb Johan Perry MD Start: 09-06-2013 End: 09-06-2013 TWISTER TENDER PAPER Melany Khanna PA-C Work Phone: Start: 09-06-2013 End: 09-06-2013 Follow Up Appt 6 months Melany ojeda PA-C Work Phone: Start: 07-28-2013 End: 08-09-2013 *Hepatic Function Panel Tasha Rogers Start: 07-28-2013 End: 08-09-2013 Lipid 1996 panel - Serum or Plasma Johan Perry MD Start: 06-08-2013 End: 08-25-2013 Follow Up Appt 3 months Tasha Rogers Start: 06-08-2013 End: 08-25-2013 Pacer Clinic Johan Perry MD Start: 06-08-2013 End: 06-08-2013 Prgrmng dev eval implantable in persn 1 ld lani Perry MD Start: 03-09-2013 End: 05-17-2013 Follow Up Appt 3 months Tasha Rogers Start: 03-09-2013 End: 05-17-2013 Pacer Clinic Johan Perry MD Start: 03-09-2013 End: 03-09-2013 Prgrmng dev eval implantable in persn 1 ld dfb Johan Perry MD Start: 03-08-2013 End: 05-17-2013 Ecg routine ecg w/least 12 lds w/i&r Johan Perry MD Start: 03-08-2013 End: 05-17-2013 Follow Up Appt 6 months Tasha Rogers Start: 03-08-2013 End: 05-17-2013 LEANN Perry MD Start: 01-28-2013 End: 02-04-2013 *Hepatic Function Panel Tasha Rogers Start: 01-28-2013 End: 02-04-2013 Lipid 1996 panel - Serum or Plasma Johan Perry MD Start: 12-08-2012 End: 05-17-2013 Follow Up Appt 3 months Tasha Rogers Start: 12-08-2012 End: 05-17-2013 Pacer Clinic Johan Perry MD Start: 12-08-2012 End: 12-08-2012 Prgrmng dev eval implantable in persn 1 ld lani Perry MD Start: 11-25-2012 End: 11-25-2012 Follow Up Appt 6 months Tasha Rogers Start: 11-25-2012 End: 11-25-2012 LEANN Perry MD Start: 09-03-2012 End: 05-17-2013 Follow Up Appt 3 months Tasha Rogers Start: 09-03-2012 End: 05-17-2013 Pacer Clinic Johan Perry MD Start: 09-03-2012 End: 09-03-2012 Prgrmng dev eval implantable in persn 1 ld dfb Johan Perry MD Start: 09-01-2012 End: 05-17-2013 *BMP Rahul Anaya MD Start: 09-01-2012 End: 05-17-2013 *Hepatic Function Panel Rahul Anaya MD Start: 09-01-2012 End: 05-17-2013 Lipid 1996 panel - Serum or Plasma Rahul Anaya MD Start: 09-01-2012 End: 05-17-2013 Magnesium [Mass/volume] in Serum or Plasma Rahul Anaya MD Start: 03-04-2012 End: 03-04-2012 Follow Up Appt 6 months Rahul Anaya MD Start: 02-04-2012 End: 02-11-2012 *Hepatic Function Panel Rahul Anaya MD Start: 02-04-2012 End: 02-11-2012 Lipid 1996 panel - Serum or Plasma Rahul Anaya MD Start: 11-24-2011 End: 11-24-2011 Follow Up Appt 4 months Rahul Anaya MD Start: 10-27-2011 End: 10-27-2011 *Hepatic Function Panel Rahul Anaya MD Start: 10-27-2011 End: 10-27-2011 Lipid 1996 panel - Serum or Plasma Rahul Anaya MD Start: 10-16-2011 End: 10-27-2011 *BMP Rahul Anaya MD Start: 08-26-2011 End: 08-26-2011 Ecg routine ecg w/least 12 lds w/i&r Rahul Anaya MD Start: 08-26-2011 End: 08-26-2011 Follow Up Appt 3 months Rahul Anaya MD Start: 06-27-2011 End: 06-27-2011 Ecg routine ecg w/least 12 lds w/i&r Rahul Anaya MD Start: 06-27-2011 End: 06-27-2011 Follow Up Appt 2 months Rahul Anaya MD Start: 06-10-2011 End: 06-10-2011 Follow Up Appt 4 months Rahul Anaya MD Plan of Treatment Date Care Activity Detail Author Start: 01-07-2028 Colonoscopy COLONOSCOPY [facility] Start: 01-07-2028 COLORECTAL CANCER SCREENING COLORECTAL CANCER SCREENING [facility] Start: 10-17-2027 Urine microalbumin profile [facility] Start: 02-24-2024 Annual PCP Team Chronic Disease Visit Annual PCP Team Chronic Disease Visit [facility] Start: 02-18-2024 Annual PCP Team Chronic Disease Visit Annual PCP Team Chronic Disease Visit [facility] Start: 11-18-2023 ANNUAL PCP TEAM CHRONIC DISEASE VISIT ANNUAL PCP TEAM CHRONIC DISEASE VISIT [facility] Start: 11-18-2023 BP CONTROLLED (<130/80) BP CONTROLLED (<130/80) [facility] Start: 11-18-2023 Creatinine measurement Serum Creatinine [facility] Start: 11-18-2023 SERUM CREATININE SERUM CREATININE [facility] Start: 10-15-2023 BP CONTROLLED (<130/80) BP CONTROLLED (<130/80) [facility] Start: 10-08-2023 SERUM CREATININE SERUM CREATININE [facility] Start: 09-23-2023 ANNUAL PCP TEAM CHRONIC DISEASE VISIT ANNUAL PCP TEAM CHRONIC DISEASE VISIT [facility] Start: 08-06-2023 3 comp foot exam completed DIABETIC FOOT EXAM [facility] Start: 08-06-2023 Diabetic foot examination Diabetic Foot Exam [facility] Start: 07-12-2023 HEMOGLOBIN/HEMATOCRIT HEMOGLOBIN/HEMATOCRIT [facility] Start: 07-12-2023 Hepatitis B surface antibody level LDL CHOLESTEROL [facility] Start: 07-12-2023 SERUM CREATININE SERUM CREATININE [facility] Start: 06-21-2023 ANNUAL PCP TEAM CHRONIC DISEASE VISIT ANNUAL PCP TEAM CHRONIC DISEASE VISIT [facility] Start: 05-27-2023 HEMOGLOBIN/HEMATOCRIT HEMOGLOBIN/HEMATOCRIT [facility] Start: 05-27-2023 SERUM CREATININE SERUM CREATININE [facility] Start: 05-12-2023 ANNUAL PCP TEAM CHRONIC DISEASE VISIT ANNUAL PCP TEAM CHRONIC DISEASE VISIT [facility] Start: 05-05-2023 ANNUAL PCP TEAM CHRONIC DISEASE VISIT ANNUAL PCP TEAM CHRONIC DISEASE VISIT [facility] Start: 05-05-2023 Covid-19 Vaccine (6 - Pfizer series) Covid-19 Vaccine (6 - Pfizer series) [facility] Start: 04-22-2023 ANNUAL PCP TEAM CHRONIC DISEASE VISIT ANNUAL PCP TEAM CHRONIC DISEASE VISIT [facility] Start: 04-22-2023 BP CONTROLLED (<130/80) BP CONTROLLED (<130/80) [facility] Start: 04-19-2023 End: 07-19-2023 ALBUMIN/CREAT RATIO RND UR ALBUMIN/CREAT RATIO RND UR Lab Routine Type 2 diabetes mellitus with diabetic neuropathy, with long-term current use of insulin (HCC) Expected: 04/19/2023 (Approximate), Expires: 07/19/2023 [facility] Work Phone: Immunizations Immunization Date Immunization Notes Care Provider Edmundo pruitt 01-02-2023 COVID-19 vaccine, ag e 12+ yr, season (PFIZER-BIONTECH) Immunization [place] Work Phone: [facility] Work Phone: 01-02-2023 influenza (HD-IIV4) vaccine, age 65+ yr, high dose, quadrivalent, PF (FLUZONE HIGH-DOSE) Immunization [place] Work Phone: [facility] Work Phone: 01-28-2022 influenza virus vaccine, unspecified formulation Trev Patino MD Work Phone: [facility] 01-18-2022 COVID-19 booster vaccine, age 12+ yr, bivalent (PFIZER-BIONTECH) Immunization [place] Work Phone: [facility] Work Phone: 01-18-2022 influenza, high-dose , quadrivalent vaccine (FLUZONE HIGH DOSE QUADRIVALENT) Immunization [place] Work Phone: [facility] 07-25-2021 COVID-19 vaccine, ag e 12+ yr (PFIZER-BIONTECH - CONTRERAS TOP) Mi Nurse Work Phone: [facility] Work Phone: 01-19-2021 influenza, high-dose , quadrivalent vaccine (FLUZONE HIGH DOSE QUADRIVALENT) [facility]elsie [facility] Work Phone: 01-10-2021 COVID-19 vaccine, ag e 12+ yr (PFIZER-BIONTECH - PURPLE TOP) Kelsie [facility] 06-13-2020 COVID-19 vaccine, ag e 12+ yr (PFIZER-BIONTECH - PURPLE TOP) Kelsie [facility] 05-23-2020 COVID-19 vaccine, ag e 12+ yr (PFIZER-BIONTECH - PURPLE TOP) Kelsie [facility] 01-20-2020 influenza, high-dose , quadrivalent vaccine (FLUZONE HIGH DOSE QUADRIVALENT) [facility] Work Phone: 01-14-2019 influenza, high dose seasonal, preservative-free Kelsie [facility] 01-26-2018 influenza, high dose seasonal, preservative-free Kelsie [facility] 01-19-2017 influenza, high dose seasonal, preservative-free Kelsie [facility] Work Phone: 01-18-2016 influenza, high dose seasonal, preservative-free Kelsie [facility] Work Phone: 01-24-2015 influenza, high dose seasonal, preservative-free Kelsie [facility] Work Phone: 06-07-2014 pneumococcal conjuga te vaccine, 13 valent [facility] 01-06-2013 influenza virus vaccine, unspecified formulation Kelsie Cerrato [facility] 03-30-2012 pneumococcal polysaccharide vaccine, 23 valent Ramiro Null 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 2013 Unknown [employer] MEDICARE SUPPLEMENT [id number] 2013-Present [phone] [address] [place] [address] Indemnity [id number] 2010 Medicare MEDICARE MEDICAR E A AND B [id number] 2010-Present [phone] [place] [address] Medicare [id number] 2010 Medicare MEDICARE MEDICAR E A AND B [id number] 2010-Present [phone] [place] [address] Medicare [id number] 2010 Medicare [id number] Social History Date Type Detail Facility Start: 03-25-2011 End: 10-14-2022 Tobacco smoking status NHIS Ex-smoker [facility] End: 08-12-2007 History of tobacco use Current smoker [facility] End: 08-12-2007 History of tobacco use Cigar Smoker [facility] Start: 06-20-2021 End: 02-17-2023 Alcohol intake Current non-drinker of alcohol (finding) [facility] Start: 09-10-2019 End: 01-22-2022 History SDOH Alcohol Frequency 1 [facility] Start: 09-10-2019 End: 05-12-2022 History SDOH Social Connections Phone [phone] [facility] Start: 09-10-2019 End: 05-12-2022 History SDOH Social Connections Membership 2 [facility] Start: 12-17-2018 End: 05-12-2022 History SDOH Social Connections Living 3 [facility] Start: 09-10-2019 End: 08-08-2021 History SDOH Physical Activity DPW 0 [facility] Start: 09-10-2019 History SDOH Stress 5 [facility] Start: 09-09-2019 Education 12 [facility] Start: 1945 Sex Assigned At Male [facility] Start: 07-05-2021 End: 01-29-2022 Exposure to SARS-CoV-2 (event) Not sure [facility] Start: 03-25-2011 End: 10-14-2022 Tobacco use and exposure Smokeless tobacco non-user [facility] Start: 01-21-2022 Tobacco Comment 2-3 per day [facility] Start: 01-11-2022 End: 01-21-2022 Exposure to SARS-CoV-2 (event) Yes [facility] Work Phone: Start: 05-12-2022 End: 08-08-2022 History of Social function [facility] Start: 05-12-2022 End: 08-08-2022 Social connection and isolation panel [facility] In a typical week, h ow many times do you talk on the telephone with family, friends, or neighbors? Patient refused [facility] Do you belong to any clubs or organizations such as restorationism groups, unions, fraternal or athletic groups, or school groups? No [facility] Are you now , , , , never or living with a partner? [facility] How often to you hav e a drink containing alcohol? Never [facility] Do you feel stress - tense, restless, nervous, or anxious, or unable to sleep at night because your mind is troubled all the time - these days [OSQ] To some extent [facility] (I/We) worried wheth er (my/our) food would run out before (I/we) got money to buy more. DK or Refused [facility] Start: 01-18-2020 Gender identity Identifies as male gender (finding) [facility] Start: 01-18-2020 Sexual orientation Heterosexual (finding) [facility] Medical Equipment Procedure Code Equipment Code Equipment Origin al Text Equipment Identifier Dates Start: 09-16-2013 Goals Date Patient Goal Desired Activity /State Personal health goal Clinical Notes 07-28-2018 to 03-11-2023 Telephone Encounter - Vera Watson RN - 03/11/2023 1:23 PM ESTTelephone Encounter - Kelsie Cerrato [facility] - 03/11/2023 11:43 AM Cholo Arroyo [facility] - 02/23/2023 1:30 PM ESTPatient Instructions Note Date & Type Note Facility 03-11-2023 Miscellaneous Notes Juice Rice also left a voicemail message with the patient's home INR result today. Noted result has been addressed below. Meaghan Watson RN Pharmacy Anticoagulation Clinic [facility] Anticoagulation Episode Summary Anticoagulation Care Providers Provider Role Specialty Phone number Trev Patino MD Referring Family Medicine [phone] Lovely Devi is a 77 year old year old male patient being evaluated today for a Telemanagement visit. Patient is currently on the following anticoagulant(s) Warfarin. Labs PT INR (no units) Date Value 02/24/2023 1.4 (pt reported) 07/03/2021 2.7 (biotel) 06/19/2021 2.6 (biotel) INR Home CoaguChek (no units) Date Value 03/11/2023 1.4 10/29/2022 1.7 10/15/2022 1.7 Hemoglobin (g/dL) Date Value 11/17/2022 9.0 02/19/2021 11.3 Hematocrit (%) Date Value 11/17/2022 32.2 02/19/2021 37.1 Platelet Count (k/uL) Date Value 11/17/2022 243 02/19/2021 163 Creatinine (mg/dL) Date Value 11/17/2022 1.03 10/07/2022 1.10 07/11/2022 1.35 02/19/2021 1.40 09/21/2020 1.74 09/14/2020 1.82 Bilirubin, Total (mg/dL) Date Value 10/07/2022 0.6 02/19/2021 0.4 ALT (U/L) Date Value 10/07/2022 13 02/19/2021 46 AST (U/L) Date Value 10/07/2022 22 02/19/2021 41 Estimated Creatinine Clearance: 75.1 mL/min (based on SCr of 1.03 mg/dL). ALLERGIES Allergen Reactions Milk GI Upset Diarrhea Morphine Rocephin [Ceftriaxo* Other: See Comments Hot flashes; redness to skin Indication for Warfarin: Anticoagulated on coumadin Paroxysmal atrial fibrillation (hcc) Anticoagulation Episode Summary Current INR goal: 2.0-3.0 Assessment: INR result of 1.4 is SUBtherapeutic due to: Increased vitamin k intake He said he has been eating salads at least 3 times per week and enjoys it. Plan: Current Warfarin Dosing As of 03/11/2023 Full warfarin instructions: 3 mg every Mon, Wed, Fri; 6 mg all other days Called and spoke to patient/caregiver Advised patient to increase total weekly regimen Next home INR check scheduled on 03/25/2023 Patient verbalizes understanding of the plan. Patient denies need for refills. Kelsie Cerrato RPh Clinical Pharmacist, Pharmacy Anticoagulation Clinic [facility] Pager: [phone]. documented in this encounter [facility] 11-29-2023 Miscellaneous Notes [facility] Anticoagulation Episode Summary Anticoagulation Care Providers Provider Role Specialty Phone number Trev Patino MD Referring Family Medicine [phone] Lovely Devi is a 77 year old year old male patient being evaluated today for a Telemanagement visit. Patient is currently on the following anticoagulant(s) Warfarin. Labs PT INR (no units) Date Value 02/24/2023 1.4 (pt reported) 07/03/2021 2.7 (biotel) 06/19/2021 2.6 (biotel) INR Home CoaguChek (no units) Date Value 10/29/2022 1.7 10/15/2022 1.7 10/01/2022 2.8 Hemoglobin (g/dL) Date Value 11/17/2022 9.0 02/19/2021 11.3 Hematocrit (%) Date Value 11/17/2022 32.2 02/19/2021 37.1 Platelet Count (k/uL) Date Value 11/17/2022 243 02/19/2021 163 Creatinine (mg/dL) Date Value 11/17/2022 1.03 10/07/2022 1.10 07/11/2022 1.35 02/19/2021 1.40 09/21/2020 1.74 09/14/2020 1.82 Bilirubin, Total (mg/dL) Date Value 10/07/2022 0.6 02/19/2021 0.4 ALT (U/L) Date Value 10/07/2022 13 02/19/2021 46 AST (U/L) Date Value 10/07/2022 22 02/19/2021 41 Estimated Creatinine Clearance: 75.1 mL/min (based on SCr of 1.03 mg/dL). ALLERGIES Allergen Reactions Milk GI Upset Diarrhea Morphine Rocephin [Ceftriaxo* Other: See Comments Hot flashes; redness to skin Indication for Warfarin: Anticoagulation Episode Summary Current INR goal: 2.0-3.0 Assessment: INR result of 1.4 is SUBtherapeutic due to: recently restarting warfarin. Per Dr. Patino's OV on 02/17, he as advised to resume. Plan: Current Warfarin Dosing As of 02/25/2023 Full warfarin instructions: 02/25: 6 mg; Otherwise 3 mg every Mon, Wed, Fri; 6 mg all other days Called and spoke to patient/caregiver Advised patient to increase dose for 1 day only then resume weekly regimen Next home INR check scheduled on 03/11 Patient verbalizes understanding of the plan. Patient denies need for refills. Kelsie Cerrato [facility] Clinical Pharmacist, Pharmacy Anticoagulation Clinic Pharmacy Anticoagulation Clinic Pager: [phone]. PATIENT CALL Patient called call center regarding message. Patient called and stated he was returning a call. Advised we were calling re: his home testing. Patient stated he tested yesterday (02/24) with a result of 1.4 (not currently showing in INR summary below). Patient stated he's been off warfarin since October and recently resumed taking it. He stated his home meter will need to be reactivated. Will send updated PAF for signature and then to [employer]. Will route to [facility] to address 02/24 result. Patient can be reached at [phone] (he stated he has a jennyfer on his phone and we will have to leave name before phone will cook pickled meat). PT INR (no units) Date Value 07/03/2021 2.7 (biotel) 06/19/2021 2.6 (biotel) 06/05/2021 3.3 (biotel) INR Home CoaguChek (no units) Date Value 10/29/2022 1.7 10/15/2022 1.7 10/01/2022 2.8 Cristina Escobar ([employer]) documented in this encounter [facility] 02-23-2023 Miscellaneous Notes OK to refill as ordered Trev Patino MD Patient has been identified by name and date of : Yes, Eleanor Nobles RN Date 02/23/2023 Time 2:50 pm Pharmacy phones for refill(s): Requested Prescriptions Pending Prescriptions Disp Refills gabapentin (NEURONTIN) 300 mg capsule 270 capsule 2 Sig: Take 3 capsules by mouth three times a day for 90 days. metOLazone (ZAROXOLYN) 2.5 mg tablet 30 tablet 1 Sig: Take 1 tablet by mouth once daily. Date of last office visit in primary care: 02/17/2023 Date of next office visit in primary care: 04/21/2023 Last 2 Encounter Wt Readings: Date: Wt: 02/17/2023 118.4 kg (261 lb) 11/17/2022 121.6 kg (268 lb) Previous labs/tests for medication: Blood Pressure: BUN (mg/dL) Date Value 11/17/2022 15 02/19/2021 28 Sodium (mmol/L) Date Value 11/17/2022 138 02/19/2021 139 Last 1 Encounter BP Readings: Date: BP: 02/17/2023 130/84 Liver Function: ALT (U/L) Date Value 10/07/2022 13 02/19/2021 46 AST (U/L) Date Value 10/07/2022 22 02/19/2021 41 Please advise. Thank you. Eleanor Nobles RN. documented in this encounter [facility] 02-23-2023 History of Presen t illness Narrative Primary Care Pharmacy Visit CC (Reason for Consult): (E11.40, Z79.4) Type 2 diabetes mellitus with diabetic neuropathy, with long-term current use of insulin (HCC) (primary encounter diagnosis) Goal(s): <8% Last Collaborating Physician Visit: 02/17/23 Lovely Devi is a 77 year old male presenting for follow up visit telephone call. Patient consents to pharmacy collaborative practice agreement. . At last visit with PCP on 02/17/23 the following changes were made: labs ordered and patient instructed to resume warfarin HPI: Reports BG readings have been higher CGM reported readings too high to read Checked with a fingerstick and readings was in 500s Cant sleep at night Not sleeping much, 4-5 hours per night Taking Basaglar differently: 40 units twice DIET/EXERCISE/SOCIAL Hx: No significant change in diet Starting to have 3 meals a day consistently Breakfast: eggs and tomato, sausage Lunch: sandwich Dinner: salad, potato and meat No snacks Beverages:water only GLYCEMIC CONTROL: CGM Data Date range Overall AVG 12a-6a 6a-12p 12p-6p 6p-12a TIME IN RANGE 14 days 7 day 194 161 228 197 190 ABOVE 50 14 day 185 154 216 184 185 IN (80-180) 50 30 day 178 - - - - BELOW 0 Past medical history reviewed. MEDICATIONS: Adherence: denies missed doses ALLERGIES Allergen Reactions Milk GI Upset Diarrhea Morphine Rocephin [Ceftriaxo* Other: See Comments Hot flashes; redness to skin Current Outpatient Medications Medication Sig Dispense Refill dulaglutide (TRULICITY) 3 mg/0.5 mL pen injector Inject 3 mg subcutaneously one time a week. Patient assistance med insulin lispro (HUMALOG KWIKPEN INSULIN) 100 unit/mL Inject 28 Units subcutaneously three times a day before meals. Plus sliding scale as directed ( 1 unit for every 50 mg/dL above 150 mg/dL). Patient assistance med. insulin glargine (BASAGLAR KWIKPEN U-100 INSULIN) 100 unit/mL (3 mL) Inject 44 Units subcutaneously every morning AND 44 Units daily at bedtime. Patient Assistance Medication. metOLazone (ZAROXOLYN) 2.5 mg tablet Take 1 tablet by mouth once daily. 30 tablet 1 warfarin (COUMADIN) 3 mg tablet 3 mg every Mon, Wed, Fri; 6 mg all other days 90 tablet 3 gabapentin (NEURONTIN) 300 mg capsule Take 3 capsules by mouth three times daily for 90 days. 270 capsule 2 sucralfate (CARAFATE) 1 gram tablet Take 1 tablet by mouth three times daily. For 14 days carvedilol (COREG) 6.25 mg tablet Take 1 tablet by mouth twice daily with meals. isosorbide mononitrate ER (IMDUR) 60 mg 24 hr tablet Take 1 tablet by mouth once daily. ondansetron orally disintegrating (ZOFRAN ODT) 4 mg disintegrating tablet Take 1 tablet by mouth every 6 hours as needed for nausea/vomiting. 10 tablet 2 albuterol (PROVENTIL) 2.5 mg /3 mL (0.083 %) nebulizer solution USE 1 VIAL IN NEBULIZER EVERY 4 HOURS NEEDED FOR WHEEZING FOR 30 DAYS 3 mL 11 dapagliflozin propanediol (FARXIGA) 10 mg tablet Take 1 tablet by mouth daily with breakfast. Please apply 1 time free voucher: RxBin: [id number] PCN: [id number] Group: [id number] ID:[id number] 90 tablet 3 latanoprost (XALATAN) 0.005 % ophthalmic solution Use 1 Drop in both eyes three times daily. 2.5 mL 11 nitroglycerin sublingual (NITROQUICK) 0.3 mg SL tablet Dissolve 0.4 mg under the tongue. Usual dose for angina is 1 tablet every 5 minutes for maximum of 3 doses in 15 minutes. 100 tablet 5 potassium chloride ER (KLOR-CON) 20 mEq tablet Take 1 tablet by mouth once daily. 90 tablet 3 rOPINIRole (REQUIP) 0.5 mg tablet Take 2 tablets by mouth daily at bedtime. 180 tablet 3 nortriptyline (PAMELOR) 25 mg capsule Take 1 capsule by mouth daily at bedtime. 90 capsule 3 Nebulizer and Compressor For Neb 1 Each four times daily as needed. 1 Each 0 furosemide (LASIX) 20 mg tablet Take 4 tablets by mouth once daily. (Patient taking differently: Take 40 mg by mouth once daily. Two tabs daily) flash glucose scanning reader (FREESTYLE FILI 2 READER) Use to check blood sugar at least four (4) times daily. 1 Each 0 Insulin Syringe-Needle U-100 (BD ULTRAFINE INSULIN) 1 mL 31 gauge x 5/16 1 Each five times daily. 450 Each 3 BIPAP Initiate BiPAP @ 24/18 cm of water with humidification. Mask (per patient preference), chin strap, filters, tubing / heated tubing, heated humidity and lifetime supplies. Dx. JESSICA G47.33 455.23 - fax compliance download to [phone] 1 Device 0 blood sugar diagnostic ([employer] BLOOD GLUCOSE SYSTEM) test strip Use as instructed to check blood sugar 3 to 4 times daily DM: yes Insulin: yes DX:11.[address] (PROTONIX) 40 mg tablet Take 40 mg by mouth once daily. Lancets (ONE TOUCH ULTRASOFT LANCETS) lancets Use with [employer] Glucometer as directed 100 Each 3 No current facility-administered medications for this visit. EXAM: There were no vitals taken for this visit. Last 3 Encounter BP Readings: Date: BP: 02/17/2023 130/84 11/17/2022 110/68 10/14/2022 118/72 Wt: 261 lb (118.4 kg) BMI: 39.68 kg/(m^2) LABS: reviewed Lab Results Component Value Date HBA1C 7.5 10/07/2022 HBA1C 8.1 07/11/2022 HBA1C 7.9 03/06/2022 HBA1C 7.2 05/01/2021 HBA1C 7.2 03/04/2021 HBA1C 6.9 10/23/2020 Glucose 235 11/17/2022 BUN 15 11/17/2022 Creatinine 1.03 11/17/2022 Sodium 138 11/17/2022 Potassium 4.1 11/17/2022 Chloride 101 11/17/2022 CO2 23 11/17/2022 Protein, Total 6.6 10/07/2022 Albumin 3.6 10/07/2022 Calcium 8.9 11/17/2022 Alkaline Phosphatase 91 10/07/2022 Bilirubin, Total 0.6 10/07/2022 AST 22 10/07/2022 ALT 13 10/07/2022 Lab Results Component Value Date CHOL 102 07/11/2022 CHOL 117 04/23/2020 LDL 36 07/11/2022 LDL 47 04/23/2020 HDL 39 07/11/2022 HDL 32 04/23/2020 TG 134 07/11/2022 TG 192 04/23/2020 Albumin/Creat Ratio (mg/g) Date Value 05/01/2021 Not calculated GFR (mL/MIN) Date Value 01/04/2020 54 eGFR- (no units) Date Value 02/19/2021 60 ASSESSMENT/PLAN: 1. Type 2 diabetes mellitus with diabetic neuropathy, with long-term current use of insulin ([facility]) - ICD9: 250.60, 357.2, V58.67, ICD10: E11.40, Z79.4 - Controlled. A1c goal <8%. A1c at goal at last check. SMBGs elevated on current regimen. Attributes higher readings to difficulty with sleep. - Increase Insulin glargine (Lantus/Basaglar/Toujeo) 44 units twice daily - Continue all other medications at same doses - Blood glucose monitoring on a continuous glucose monitoring schedule - Counseled on healthy diet and regular exercise - Follow up in 3 weeks, sooner should any other issues arise. Cholo Thorpe, PharmD, BCACP Primary Care Clinical Pharmacist The majority of the pharmacy visit (> 50%) was spent counseling and/or coordinating care for the patient. interaction: telephonic time was 20 minutes. documented in this encounter [facility] 02-20-2023 Miscellaneous Notes Office received fax [employer] monitoring company that they are going to be handling his INR. Pharmacists will manage INR. May Martinez Ma Pt was seen in office today. He has been off his coumadin for a few months, possibly since October due to having colonoscopy done. He has been restarted on 3 mg Mon/Thu/Fri and 6 mg all other days as that appears to be the most recent instructions he had. Pt is to recheck his INR in 1 week. Getting this done with home monitor and looks like INR and coumadin have been managed by pharmacists. Just want to make Pharmacists aware so they can watch for his INR results and restart management. If any thing further is needed from our office, let us know. Thanks. May Martinez Ma documented in this encounter [facility] 02-17-2023 History of Presen t illness Narrative Chief Complaint Patient presents with: ED Follow-up: [facility] ER for SOB HPI Lovely Devi is a 77 year old male who presents here today for ER Follow Up.. Here alone today, did not come with him. He has an advanced directive. He had called in on the to discuss his coumadin and nurse noticed he was breathing hard and instructed him to go to ER. Pt was at [facility] ER on 02/09/23 for c/o SOB. He states this is not any better, he is not using any inhalers, is using Nebulizer tx 2-3 x a day. The breathing tx do not seem to help. He has SOB when laying in bed, intermittent swelling in both feet and ankles. He is sleeping in his bed, has 2-3 pillows with prop him up at night. He is not on oxygen. He will borrow his 's O2 if needed at night to get his oxygen level up, then he goes to bed. He does follow with a Pulmonology at [facility], Dr. Ayala. He was seen by his office a month ago, has not followed up or contacted [employer] since ER visit. He does get intermittent Chest pains daily but denies any dizziness. He uses the Nitro for chest pain which helps. He does not know if his breathing is worse, but not any better. Denies any worsened swelling, coughing. He has CHF, weight is down some. He has SOB with exertion and walking. He does not have oxygen in his CPAP just pressure. He states that he takes Lasix 40 mg BID and Zaroxolyn 2.5 mg daily. He states that he checks his oxygen at home, drops down into the 80s at night before he goes to bed and runs around 94-95% at home. He has not tried checking his pulse ox while up moving or walking around. He has been off his coumadin for the last 2 months due to colonoscopy and GI bleeding. He needs to know when he should restart and what dosage. Below copied from [facility] [employer]: Chief Complaint: Shortness of Breath Detail of Chief Complaint: Dyspnea Informant: patient Narrative Narrative: Patient presents to the emergency department complaint of shortness of breath has been going on for about a week and a half. Patient states that he is chronically on Coumadin for history of DVT and history of a flutter. Patient was taken off his Coumadin about 3 months ago because he was going to have a colonoscopy for some rectal bleeding issues. Patient had his colonoscopy about a week and a half ago. Patient states that they took out some polyps but otherwise no significant abnormalities were noted. Patient was not restarted on his Coumadin. Patient called the Coumadin clinic today to see if he should restart his Coumadin and he appeared dyspneic to them so he was referred to the emergency department. Patient also been complaining of some chest tightness for the last week and a half and exertional dyspnea. He has had a dry cough for about a month and a runny nose. Patient denies any fevers. Patient denies any weight gain or water weight gain. MDM Narrative Medical decision making narrative: Patient presents with dyspnea and concern for PE. Has been having some nondescript chest discomfort for a week and a half. Complains of exertional dyspnea. In the differential would be PE given that he is been off his Coumadin. Also acute coronary syndrome or CHF. Infectious etiology also although I think this is less likely. IV line established on arrival. EKG obtained showed a sinus rhythm with a ventricular rate of [address] changes. Computer noted acute ST elevation AK however I do not think EKG represents STEMI. When compared with prior EKG from April 21, 2021 no significant changes noted. CBC with differential white count of 6.0 with hemoglobin of 9.2 and platelet count of 165. Chemistries unremarkable. Potassium slightly low 3.0. I will given 40 mill equivalents of potassium chloride p.o. First troponin was minimally elevated at 83 however looking back this is his baseline. I did perform a delta troponin and it was 80. BNP was 121.6. CTA of the chest with IV contrast showed no evidence for PE or infiltrate or acute process. At this point etiology of his dyspnea unclear. Clinically he looks well. I do not think she is having acute coronary syndrome. There is no evidence of PE. Recommended he follow-up with Coumadin clinic to get started back on his Coumadin. Patient to follow-up with his primary care physician within next 3 to 5 days. Past medical history, appointments, medications, allergies reviewed. Previous Medical History PAST MEDICAL HISTORY Diagnosis Date ASHD (arteriosclerotic heart disease) 02/19/2015 Atrial fibrillation (HCC) 07/03/2011 Automatic implantable cardiac defibrillator in situ Petit's esophagus with esophagitis 03/01/2015 Benign neoplasm of colon Chronic diarrhea 09/16/2011 Coronary atherosclerosis of unspecified type of vessel, makah or graft s/p [place] in 1985 Diverticulosis of colon (without mention of hemorrhage) Duodenitis without mention of hemorrhage Dysphagia 03/01/2015 Facet arthritis of lumbar region 07/14/2017 GERD (gastroesophageal reflux disease) 06/10/12 Heart attack (HCC) Labyrinthitis 02/05/2010 Neurocardiogenic syncope 03/01/2015 Obesity 09/16/2011 JESSICA treated with BiPAP DME [employer] Other and unspecified hyperlipidemia Other specified forms of chronic ischemic heart disease Paroxysmal ventricular tachycardia (HCC) Snoring Stroke (HCC) Tinea of nail 01/13/2011 Type 2 diabetes mellitus with st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, with long-term current use of insulin (HCC) 06/15/2017 Unspecified essential hypertension Previous Surgical History PAST SURGICAL HISTORY Procedure Laterality Date COLONOSCOPY N/A 11/05/2022 [facility] COLONOSCOPY FLX DX W/COLLJ SPEC WHEN PFRMD 12/21/2017 Dr. Anthony-repeat 3 years-11/2020 COLONOSCOPY W/BIOPSY SINGLE/MULTIPLE 02/21/2009 EGD W/O [facility] SPEC VARICIES INJ N/A 11/05/2022 [facility] ESOPHAGOGASTRODUODENOSCOPY TRANSORAL DIAGNOSTIC EGD ESOPHAGOGASTRODUODENOSCOPY TRANSORAL DIAGNOSTIC 02/16/2008 EGD inpt [facility] H-pylori negative ESOPHAGOGASTRODUODENOSCOPY TRANSORAL DIAGNOSTIC 05/24/2015 EGD ESOPHAGOGASTRODUODENOSCOPY TRANSORAL DIAGNOSTIC 12/21/2017 Dr. Anthony-repeat 3 years-11/2020 HEART CATHETERIZATION 12/15/2014 [facility] - see scanned documents HEART SURGERY HX 1 stent LEFT HEART CATH,PERCUTANEOUS Cardiac cath, L heart LEFT HEART CATH,PERCUTANEOUS 06/20/2011 Cardiac cath, L heart PAST SURGICAL HISTORY OF ICD/ pacemaker at [facility] PERC TRANSL COR ANGIO Percutaneous Transluminal Coronary Angio Status REMV CATARACT EXTRACAP,INSERT LENS Bilateral 2020 Right corrected in 2020 and left 2018. Family History FAMILY HISTORY Problem Relation Age of Onset Stroke Mother Heart Mother Cancer Father prostate Heart Father Breast Cancer Sister Breast Cancer Sister Diabetes Sister Diabetes Brother Diabetes Brother Patient Allergies ALLERGIES Allergen Reactions Milk GI Upset Diarrhea Morphine Rocephin [Ceftriaxo* Other: See Comments Hot flashes; redness to skin Current Medications Current Outpatient Medications on File Prior to Visit Medication Sig dulaglutide (TRULICITY) 3 mg/0.5 mL pen injector Inject 3 mg subcutaneously one time a week. Patient assistance med insulin lispro (HUMALOG KWIKPEN INSULIN) 100 unit/mL Inject 28 Units subcutaneously three times a day before meals. Plus sliding scale as directed ( 1 unit for every 50 mg/dL above 150 mg/dL). Patient assistance med. insulin glargine (BASAGLAR KWIKPEN U-100 INSULIN) 100 unit/mL (3 mL) Inject 44 Units subcutaneously every morning AND 44 Units daily at bedtime. Patient Assistance Medication. metOLazone (ZAROXOLYN) 2.5 mg tablet Take 1 tablet by mouth once daily. warfarin (COUMADIN) 3 mg tablet 3 mg every Mon, Wed, Fri; 6 mg all other days gabapentin (NEURONTIN) 300 mg capsule Take 3 capsules by mouth three times daily for 90 days. sucralfate (CARAFATE) 1 gram tablet Take 1 tablet by mouth three times daily. For 14 days carvedilol (COREG) 6.25 mg tablet Take 1 tablet by mouth twice daily with meals. isosorbide mononitrate ER (IMDUR) 60 mg 24 hr tablet Take 1 tablet by mouth once daily. ondansetron orally disintegrating (ZOFRAN ODT) 4 mg disintegrating tablet Take 1 tablet by mouth every 6 hours as needed for nausea/vomiting. albuterol (PROVENTIL) 2.5 mg /3 mL (0.083 %) nebulizer solution USE 1 VIAL IN NEBULIZER EVERY 4 HOURS NEEDED FOR WHEEZING FOR 30 DAYS dapagliflozin propanediol (FARXIGA) 10 mg tablet Take 1 tablet by mouth daily with breakfast. Please apply 1 time free voucher: RxBin: [id number] N: [id number] Group: [id number] ID:[id number] latanoprost (XALATAN) 0.005 % ophthalmic solution Use 1 Drop in both eyes three times daily. nitroglycerin sublingual (NITROQUICK) 0.3 mg SL tablet Dissolve 0.4 mg under the tongue. Usual dose for angina is 1 tablet every 5 minutes for maximum of 3 doses in 15 minutes. potassium chloride ER (KLOR-CON) 20 mEq tablet Take 1 tablet by mouth once daily. rOPINIRole (REQUIP) 0.5 mg tablet Take 2 tablets by mouth daily at bedtime. nortriptyline (PAMELOR) 25 mg capsule Take 1 capsule by mouth daily at bedtime. Nebulizer and Compressor For Neb 1 Each four times daily as needed. furosemide (LASIX) 20 mg tablet Take 4 tablets by mouth once daily. (Patient taking differently: Take 40 mg by mouth once daily. Two tabs daily) flash glucose scanning reader (Consult A Doctor FILI 2 READER) Use to check blood sugar at least four (4) times daily. Insulin Syringe-Needle U-100 (BD ULTRAFINE INSULIN) 1 mL 31 gauge x 5/16 1 Each five times daily. BIPAP Initiate BiPAP @ 24/18 cm of water with humidification. Mask (per patient preference), chin strap, filters, tubing / heated tubing, heated humidity and lifetime supplies. Dx. JESSICA G47.33 327.23 - fax compliance download to [phone] blood sugar diagnostic ([employer] BLOOD GLUCOSE SYSTEM) test strip Use as instructed to check blood sugar 3 to 4 times daily DM: yes Insulin: yes DX:11.[address] (PROTONIX) 40 mg tablet Take 40 mg by mouth once daily. Lancets (ONE TOUCH ULTRASOFT LANCETS) lancets Use with [employer] Glucometer as directed No current facility-administered medications on file prior to visit. Social History Social History Tobacco Use Smoking status: Former Types: Cigars Quit date: 08/12/2007 Years since quittin.5 Smokeless tobacco: Never Tobacco comments: 2-3 per day Vaping Use Vaping Use: Never used Substance Use Topics Alcohol use: No Drug use: No EXAM: BP 130/84 Pulse 98 Resp 20 Wt 118.4 kg (261 lb) SpO2 99% BMI 39.68 kg/m General Appearance: Well appearing, alert, in no acute distress, well-hydrated, well nourished., Obese, and Walker. Lungs: Lungs clear to auscultation. No wheezing, rhonchi, rales.. Heart: RRR without murmur, gallop, or rubs. No ectopy. Extremities: no swelling to both feet and ankles. Health Maintenance List Spirometry Never done Shingrix Vaccine(1 of 2) Never done Hepatitis B Vaccine(1 of 3 - Risk 3-dose series) Never done RSV Vaccine(1 - 1-dose 60+ series) Never done Advance Directive Discussion Never done Urine Albumin:Creatinine Ratio due on 05/01/2022 Dilated Retinal Exam due on 08/19/2022 HbA1C due on 04/09/2023 LDL Cholesterol due on 07/12/2023 Diabetic Foot Exam due on 08/06/2023 Annual PCP Team Chronic Disease Visit due on 11/18/2023 Serum Creatinine due on 11/18/2023 BP Controlled (<130/80) due on 11/18/2023 DTaP,Tdap,Td Vaccine(3 - Td or Tdap) due on 10/17/2027 Influenza Vaccine Completed Hepatitis C Screening Completed Covid-19 Vaccine Completed Pneumococcal Vaccine: 65+ Completed Colorectal Cancer Screening Discontinued Data reviewed Care Everywhere ASSESSMENT/PLAN: 1. SOB (shortness of breath) - ICD9: 786.05, ICD10: R06.02 (primary diagnosis) Chronic due to multiple conditions - CBC 2. Essential hypertension - ICD9: 401.9, ICD10: I10 - Controlled - Continue current medications - CBC 3. Paroxysmal atrial fibrillation (HCC) - ICD9: 427.31, ICD10: I48.0 - PROTHROMBIN TIME/PT - CBC 4. Anticoagulated on Coumadin - ICD9: V58.61, ICD10: Z79.01 - PROTHROMBIN TIME/PT 5. ASHD (arteriosclerotic heart disease) - ICD9: 414.00, ICD10: I25.10 Stable 6. Hyperlipidemia LDL goal <100 - ICD9: 272.4, ICD10: E78.5 - LIPID PANEL BASIC - COMP METABOLIC PANEL 7. Ischemic cardiomyopathy - ICD9: 414.8, ICD10: I25.5 8. Type 2 diabetes mellitus with diabetic neuropathy, with long-term current use of insulin (HCC) - ICD9: 250.60, 357.2, V58.67, ICD10: E11.40, Z79.4 - Controlled - Continue current medications - LIPID PANEL BASIC - COMP METABOLIC PANEL - HGB A1C - ALBUMIN/CREAT RATIO RND UR Pt to restart coumadin at 3 mg Mon/Wed/Fri and 6 mg all other days. Pharmacist has been managing his INR and coumadin dosages. Recheck INR in 1 week. Follow up 2 months with fasting labs prior. I agree with the Chief Complaint, ROS, and Past Histories independently gathered by the clinical client application support specialist and the remaining scribed note accurately describes my personal service to the patient. Medical Decision Making: Problems: Moderate: 2+ stable chronic illnesses Data: Unique test(s) ordered: 3+ Risk: Moderate: Drug management Medical Decision Making Level: 4 - Moderate Trev Patino MD The documentation for this note was completed by May Martinez Ma acting as scribe for Trev Patino MD. February 17, 2023 9:28 AM. May Martinez Ma documented in this encounter [facility] 02-17-2023 Instructions May Martinez Ma - 02/17/2023 10:00 AM EST Restart coumadin at 3 mg Mon/Wed/Fri and 6 mg all other days. Pharmacist has been managing his INR and coumadin dosages. Recheck INR in 1 week. documented in this encounter [facility] 02-10-2023 History of Presen t illness Narrative POPULATION HEALTH NAVIGATION OUTREACH Action/I February 10, 2023 Called and scheduled patient on 02/17/2023 at 10:00 Meka Veronica MA Patient Identified by Name and : YES, via phone Outreach Outcome/Action Spoke to patient / parent / legal guardian: Patient scheduled Did you use a PCP flex slot to schedule this appointment? No Reason for Outreach Community Monitoring [place] Payer: Payor: MEDICARE / Plan: MEDICARE A AND B / Product Type: Medicare / Care Gap Reviewed:: Follow-up appointment Reminder: Reminder note to check Health Maintenance for items below Health Maintenance items due: Spirometry Never done Shingrix Vaccine(1 of 2) Never done Hepatitis B Vaccine(1 of 3 - Risk 3-dose series) Never done RSV Vaccine(1 - 1-dose 60+ series) Never done Advance Directive Discussion Never done Urine Albumin:Creatinine Ratio due on 05/01/2022 Dilated Retinal Exam due on 08/19/2022 Navigation Signature: Meka Veronica MA February 10, 2023 2:59 PM CDM Telephonic Outreach Provider Action/FYI Thanked for completing questionnaire Send AUGUSTO education to my chart-patient agreeable CHF/CKD/COPD Patient states he was seen in [facility] ED yesterday for worsening sob, runny nose and dry cough. Patient states they did not find anything did some blood work Advised follow up with PCP-Patient agreeable Will forward to navigation team for assistance Updated ADL's, falls, goals Patient talking in complete sentences Patient follows with Care Coordinator and [employer] at [place]. Non [facility] providers Contacted for: Goals/Falls/ADL Update Contact made with patient: Yes Patient identified by name and date of . Discussed care with: patient Goal Setting I would like to take some time today to discuss your personal health goals. Yes, patient has goals. Capture the goal the patient wants to accomplish: . Does the goal align with programs offered at the [facility]? 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 AUGUSTO Education Ordered -: Yes Thank you for your time today. I am excited to work together in managing your health! You will receive information on next steps through your [employer] account, and I will check back within a few weeks to ensure you have all that you need to use the program successfully. Most people know what to do to become healthier, yet struggle to put it into action on their own, It can be hard to maintain a healthy lifestyle, especially when life is so stressful. Can we connect you with a [facility] Health Tube Tester to find a program that could help you meet your goals? No Falls completed:Yes ADL's updated: Yes Are you experiencing any new or worsening symptoms you need to talk about today? No Disease Specific Do you check your blood pressure at home? No Do you have new or worsening shortness of breath with activity? Yes Based on director of estate, the following disposition is advised: No symptoms or symptoms present, not severe. Routed to: No Action Needed AUGUSTO Education Provided this Outreach: Yes Kalia Ambrocio RN February 10, 2023 2:45 PM documented in this encounter [facility] 02-10-2023 Miscellaneous Notes Patient currently enrolled in [employer] PAP for Trulicity, Basaglar and Humalog. Will need to complete renewal application for 2023. Will work with pharmacy picking tech team for renewal application. ASSESSMENT/PLAN: 1. Type 2 diabetes mellitus with diabetic neuropathy, with long-term current use of insulin (HCC) - ICD9: 250.60, 357.2, V58.67, ICD10: E11.40, Z79.4 - CONSULT TO PAP FOR AMBULATORY CLINIC PHARMACY Cholo Thorpe RP documented in this encounter [facility] 02-09-2023 Miscellaneous Notes Called and spoke with Ila. She states pt is currently in the ER at [facility]. Please see below for 2 concerns: Questions about Coumadin and INR and pt was extremely SOB with wheezing on the phone when talking with nurse. Called and spoke with pt's daughter and instructed her that her father needs to go to the ER. (per triage protocol). She verbalizes understanding and will send her over to check on him. Stressed the importance of taking him to the ER. Pt calling and states he needs to be reinstated in the Coumadin clinic so he can start doing his INR's at home again. Pt states he still has his machine. Last INR per [facility] was 10/29/22. Pt has been off of his Coumadin for several months (see 12/04/22 TE). He had some GI bleeding and was told to hold the Coumadin. He just had a repeat colonoscopy on 01/30/23 and just got a phone call from Dr. Jackson's office and they told pt he could restart his Coumadin. A new script for Coumadin was sent on 12/29/22. Is the dosage from the script on 12/29/[address] Patino would want pt to start at? Could we get pt back into the program so he can do his INR's at home again and when should he do the first one? Reason for Disposition [1] MODERATE difficulty breathing (e.g., speaks in phrases, SOB even at rest, pulse 100-120) AND [2] NEW-onset or WORSE than normal Answer Assessment - Initial Assessment Questions 1. RESPIRATORY STATUS: Pt audibly is having extreme SOB with external wheezing. Has to stop during sentances to get a breath. 2. ONSET: Pt states about a week ago but it is getting worse 3. PATTERN It has been constant. States it is really bad with any sort of exertion. When he is sitting down, it is not as bad . 4. SEVERITY: Moderate to severe. Speaking in phrases, audibly SOB with wheezing. States using his nebulizer 3-4 times a day and it helps for maybe an hour. - MILD: No SOB at rest, mild SOB with walking, speaks normally in sentences, can lie down, no retractions, pulse < 100. - MODERATE: SOB at rest, SOB with minimal exertion and prefers to sit, cannot lie down flat, speaks in phrases, mild retractions, audible wheezing, pulse 100-120. - SEVERE: Very SOB at rest, speaks in single words, struggling to breathe, sitting hunched forward, retractions, pulse > 120 5. RECURRENT SYMPTOM: Pt states he has had this happen before earlier this year and was in the hospital for it. 6. CARDIAC HISTORY: h/o AK, CHF, Afib, atrial flutter, cardiomyopathy, Paroxysmal ventricular tachycardia and has a defibrillator 7. LUNG HISTORY: Pt has COPD per hx, but denied during conversation 8. CAUSE: Pt unsure 9. OTHER SYMPTOMS: Pt has a runny nose and dry cough. When asked about chest pain stated he was having some off and on. 10. O2 SATURATION MONITOR: Pt does have a pulse ox at home. Pulse was 94 and oxygen level was 92. Pt states yesterday his pulse ox was 88-90. 11. : N/A 12. TRAVEL: N/A Protocols used: Breathing [id number] documented in this encounter [facility] 02-04-2023 Note [facility] 01-08-2023 Miscellaneous Notes Result from last month has already been addressed Trev Patino MD Pt had urine test done at [facility], results below. View External Labs - Miscellaneous Lab [ID [id number]] documented in this encounter [facility] 01-07-2023 Miscellaneous Notes Patient notified of results, verbalizes understanding of instructions. Ila Almanza LPN Can you please call the patient and let him know that his urine culture came back negative for any bacterial growth. However if symptoms have improved with the antibiotic, I would recommend taking antibiotic until gone. If he is still having burning with urination I would recommend a consult with urology. Please let me know if he has any questions. Thank you. Shereen Holt APRN.PUPPET MAKER documented in this encounter [facility] 01-01-2023 Miscellaneous Notes Phoned Violetta and went over notes below from Dr Romo with understanding. OK for verbal order. Violetta from [facility] calling asking for verbal order for recert longterm one visit for one week, working on discharging the patient. Please advise documented in this encounter [facility] 01-01-2023 Miscellaneous Notes Pt notified. May Martinez Ma Can you please call the patient back. Let him know that I sent a prescription for Macrobid, take this twice daily for the next 14 days. I would like him to come into the lab to provide a urine sample before starting the antibiotics. Last urine that was collected was contaminated. I want to ensure that he cleans well prior to providing sample. Stay well-hydrated. Red flag symptoms such as fever, chills, increasing in pain or symptoms go to the ER. Please let me know if he has any other questions. Thank you. The following approved medication requests have been transmitted electronically. Requested Prescriptions Signed Prescriptions Disp Refills nitrofurantoin monohydrate and macrocrystal (MACROBID) 100 mg capsule 28 capsule 0 Sig: Take 1 capsule by mouth two times a day for 14 days. Authorizing Provider: SHEREEN HOLT APRN.RODRIGUEZ Pt states he is still getting up every 2-3 hours through the night to urinate, has burning with urination, lower back pain, states urine is dark yellow, and has urgency. Pt is still having SOB and sating 88-90% on RA. He reports he has fatigue, but says it is probably from becoming out of breath so easily. Pt uses [email or web address]. Can you please call patient for update? Is he still having urinary symptoms? Thank you. Shereen Holt APRN.PUPPET MAKER Nurse Sheba from [facility] states pt is taking macrobid for a UTI. Will finish today but still has UTI symptoms. Sheba asking if provider wants her to check pt's urine next week? Sheba also says pt is having sob. Pulse ox usually 91% at room air, drops to the 80s with activity. Denies any edema. Pt uses 's oxygen at times when walking, he does not have order for O2. Uses a cpap at hs. Pt takes furosemide & metOLazone. Please advise. Melissa Mckeon LPN documented in this encounter [facility] 10-02-2023 Miscellaneous Notes The following approved medication requests have been transmitted electronically. Requested Prescriptions Pending Prescriptions Disp Refills metOLazone (ZAROXOLYN) 2.5 mg tablet 30 tablet 1 Sig: Take 1 tablet by mouth once daily. warfarin (COUMADIN) 3 mg tablet 90 tablet 3 Si mg every Mon, Wed, Fri; 6 mg all other days Jaun Hinson APRN.PUPPET MAKER Patient phones requesting refills as follows: Requested Prescriptions Pending Prescriptions Disp Refills metOLazone (ZAROXOLYN) 2.5 mg tablet 30 tablet 1 Sig: Take 1 tablet by mouth once daily. warfarin (COUMADIN) 3 mg tablet 90 tablet 3 Si mg every Mon, Wed, Fri; 6 mg all other days CALVIN-11/17/22 Labs-11/17/22 NOV-none Please review and advise. Ila Almanza LPN documented in this encounter [facility] 12-26-2022 Note [facility] 12-26-2022 History of Presen t illness Narrative Primary Care Pharmacy Visit CC (Reason for Consult): (E11.22, N18.31, Z79.4) Type 2 diabetes mellitus with stage 3a chronic kidney disease, with long-term current use of insulin (HCC) (primary encounter diagnosis) (E11.40, Z79.4) Type 2 diabetes mellitus with diabetic neuropathy, with long-term current use of insulin ([facility]) Goal(s): <8% Last Collaborating Physician Visit: 11/17/22 Lovely Devi is a 77 year old male presenting for follow up visit by telephone. Patient consents to pharmacy collaborative practice agreement. . At last visit with pharmacy on 11/21/22 the following changes were made: Basaglar dose adjusted to match patient's self increased dose HPI: Continues to have [facility] care. PT is done but nursing will continue to come out one more week States BG readings are starting to get better Had low BG readings for 3 nights in the past week Has completed antibiotics course Taking Basaglar differently thank prescribed: Morning 32 units and Evening 34 units DIET/EXERCISE/SOCIAL Hx: Appetite has been Ok, typically having 2 meals GLYCEMIC CONTROL: CGM Data Sensor usage: 65% (Goal >70%) Hypoglycemia events: 2%, 3 events 12-6am Date range Overall AVG 12a-6a 6a-12p 12p-6p 6p-12a TIME IN RANGE Last 14 days 7 day 169 126 164 214 180 ABOVE 38^ 14 day 176 - - - - IN (80-180) 60% BELOW 2% Past medical history reviewed. MEDICATIONS: Adherence: denies missed doses ALLERGIES Allergen Reactions Milk GI Upset Diarrhea Morphine Rocephin [Ceftriaxo* Other: See Comments Hot flashes; redness to skin Current Outpatient Medications Medication Sig Dispense Refill gabapentin (NEURONTIN) 300 mg capsule Take 3 capsules by mouth three times daily for 90 days. 270 capsule 2 insulin glargine (BASAGLAR KWIKPEN U-100 INSULIN) 100 unit/mL (3 mL) Inject 32 Units subcutaneously every morning AND 32 Units daily at bedtime. Patient Assistance Medication. sucralfate (CARAFATE) 1 gram tablet Take 1 tablet by mouth three times daily. For 14 days carvedilol (COREG) 6.25 mg tablet Take 1 tablet by mouth twice daily with meals. isosorbide mononitrate ER (IMDUR) 60 mg 24 hr tablet Take 1 tablet by mouth once daily. metOLazone (ZAROXOLYN) 2.5 mg tablet Take 1 tablet by mouth once daily. 30 tablet 1 insulin lispro (HUMALOG KWIKPEN INSULIN) 100 unit/mL Inject 21 Units subcutaneously three times daily before meals. Plus sliding scale as directed ( 1 unit for every 50 mg/dL above 150 mg/dL) 7 Each 5 ondansetron orally disintegrating (ZOFRAN ODT) 4 mg disintegrating tablet Take 1 tablet by mouth every 6 hours as needed for nausea/vomiting. 10 tablet 2 albuterol (PROVENTIL) 2.5 mg /3 mL (0.083 %) nebulizer solution USE 1 VIAL IN NEBULIZER EVERY 4 HOURS NEEDED FOR WHEEZING FOR 30 DAYS 3 mL 11 dapagliflozin propanediol (FARXIGA) 10 mg tablet Take 1 tablet by mouth daily with breakfast. Please apply 1 time free voucher: RxBin: [id number] PCN: [id number] Group: [id number] ID:[id number] 90 tablet 3 dulaglutide (TRULICITY) 3 mg/0.5 mL pen injector Inject 3 mg subcutaneously one time a week. 6 mL 3 latanoprost (XALATAN) 0.005 % ophthalmic solution Use 1 Drop in both eyes three times daily. 2.5 mL 11 nitroglycerin sublingual (NITROQUICK) 0.3 mg SL tablet Dissolve 0.4 mg under the tongue. Usual dose for angina is 1 tablet every 5 minutes for maximum of 3 doses in 15 minutes. 100 tablet 5 potassium chloride ER (KLOR-CON) 20 mEq tablet Take 1 tablet by mouth once daily. 90 tablet 3 rOPINIRole (REQUIP) 0.5 mg tablet Take 2 tablets by mouth daily at bedtime. 180 tablet 3 warfarin (COUMADIN) 3 mg tablet 3 mg every Mon, Wed, Fri; 6 mg all other days 90 tablet 3 nortriptyline (PAMELOR) 25 mg capsule Take 1 capsule by mouth daily at bedtime. 90 capsule 3 Nebulizer and Compressor For Neb 1 Each four times daily as needed. 1 Each 0 furosemide (LASIX) 20 mg tablet Take 4 tablets by mouth once daily. (Patient taking differently: Take 40 mg by mouth once daily. Two tabs daily) flash glucose scanning reader (FREESTYLE FILI 2 READER) Use to check blood sugar at least four (4) times daily. 1 Each 0 Insulin Syringe-Needle U-100 (BD ULTRAFINE INSULIN) 1 mL 31 gauge x 5/16 1 Each five times daily. 450 Each 3 BIPAP Initiate BiPAP @ 24/18 cm of water with humidification. Mask (per patient preference), chin strap, filters, tubing / heated tubing, heated humidity and lifetime supplies. Dx. JESSICA G47.33 327.23 - fax compliance download to [phone] 1 Device 0 blood sugar diagnostic ([employer] BLOOD GLUCOSE SYSTEM) test strip Use as instructed to check blood sugar 3 to 4 times daily DM: yes Insulin: yes DX:11.9 [address] (PROTONIX) 40 mg tablet Take 40 mg by mouth once daily. Lancets (ONE TOUCH ULTRASOFT LANCETS) lancets Use with [employer] Glucometer as directed 100 Each 3 No current facility-administered medications for this visit. EXAM: There were no vitals taken for this visit. Last 3 Encounter BP Readings: Date: BP: 11/17/2022 110/68 10/14/2022 118/72 09/22/2022 129/82 Wt: 121.6 kg (268 lb) BMI: 40.75 kg/(m^2) LABS: reviewed Lab Results Component Value Date HBA1C 7.5 10/07/2022 HBA1C 8.1 07/11/2022 HBA1C 7.9 03/06/2022 HBA1C 7.2 05/01/2021 HBA1C 7.2 03/04/2021 HBA1C 6.9 10/23/2020 Glucose 235 11/17/2022 BUN 15 11/17/2022 Creatinine 1.03 11/17/2022 Sodium 138 11/17/2022 Potassium 4.1 11/17/2022 Chloride 101 11/17/2022 CO2 23 11/17/2022 Protein, Total 6.6 10/07/2022 Albumin 3.6 10/07/2022 Calcium 8.9 11/17/2022 Alkaline Phosphatase 91 10/07/2022 Bilirubin, Total 0.6 10/07/2022 AST 22 10/07/2022 ALT 13 10/07/2022 Lab Results Component Value Date CHOL 102 07/11/2022 CHOL 117 04/23/2020 LDL 36 07/11/2022 LDL 47 04/23/2020 HDL 39 07/11/2022 HDL 32 04/23/2020 TG 134 07/11/2022 TG 192 04/23/2020 Albumin/Creat Ratio (mg/g) Date Value 05/01/2021 Not calculated GFR (mL/MIN) Date Value 01/04/2020 54 eGFR- (no units) Date Value 02/19/2021 60 ASSESSMENT/PLAN: 1. Type 2 diabetes mellitus with stage 3a chronic kidney disease, with long-term current use of insulin ([facility]) - ICD9: 250.40, 585.3, V58.67, ICD10: E11.22, N18.31, Z79.4 (primary diagnosis) - Controlled. A1c goal <8%. A1c at goal at last check. SMBGs improving with reported s/sx of hypoglycemia. Patient taking higher than prescribed dose of basal insulin, will decrease dose to prevent risk of hypoglycemia. - Decrease Insulin glargine (Lantus/Basaglar/Toujeo) 32 units in the morning and 30 units at bedtime - Continue all other medications at same doses - Blood glucose monitoring on a continuous glucose monitoring schedule - eGFR: 75 Stable - INSULIN GLARGINE (U-100) 100 UNIT/ML (3 ML) SUBCUTANEOUS PEN Follow up: Pharmacy follow up: 02/06/23 Cholo Thorpe, PharmD, BCACP Primary Care Clinical Pharmacist The majority of the pharmacy visit (> 50%) was spent counseling and/or coordinating care for the patient. interaction: telephonic time was 20 minutes. documented in this encounter [facility] 12-19-2022 Miscellaneous Notes Violetta given VO. Ariana Freeman MA Okay to continue longterm as requested. Dr. Patino's team will follow. Jaun Hinson APRN.PUPPET MAKER Violetta RN with [facility] calls to request an order to continue SN frequency for 1 wk 2 to monitor urinary symptoms. Patient recently reported urinary frequency. Culture was negative. Violetta requests call back at [phone]. Eleanor Nobles RN documented in this encounter [facility] 12-17-2022 Miscellaneous Notes See TE 12/17/2022. Eleanor Nobles RN No answer. Left message for patient to return call for results. Advised him that an abx was sent to his pharmacy. Sameera Christensen Urine shows possible uti.cover with macrobid until culture back. documented in this encounter [facility] 12-17-2022 Miscellaneous Notes Patient calls and notified of results and providers instructions. Patient verbalizes understanding. Patient reports that he is feeling fine. Patient hadn't started antibiotic so at this time he will not. Eleanor Nobles RN Final culture just came back negative. Shows urinary contamination. If feeling better, can stop macrobid. documented in this encounter [facility] 12-17-2022 Miscellaneous Notes Unable to reach patient by phone. Left voicemail with phone number for irisnoteer Mogujie at for replacement sensors. Cholo Thorpe, PharmD, BCACP Primary Care Clinical Pharmacist Patient calling to give message to Cholo Thorpe [facility]. Pt reports he had two bad sensors for his Freestyle Fili. States he called [facility] a couple weeks ago and notified them of bad sensors, and they were going to send new sensors to him. Reports he has not received then yet and asking if Cholo is able to assist him any further? Reports he will test blood sugars with fingerstick meter for now. Estrella Edwards RN documented in this encounter [facility] 09-18-2023 Miscellaneous Notes Opened in error. documented in this encounter [facility] 12-12-2022 Miscellaneous Notes Call to Roma and notified her of [facility] placing orders. Asking for orders be faxed to [facility] at [phone]. This has been done within Epic. Day Richardson Ma Roma with [facility] calls to report that patient is complaining of urinary frequency and urine is brandi in color. Afebrile and no other symptoms. Roma is requesting an order for UA C&S. She has urine collected just needs order to drop specimen off at [facility]. Contact number for Roma is [phone]. Eleanor Nobles RN documented in this encounter [facility] 12-05-2022 Miscellaneous Notes Call to pt and notified him of message below from Provider. Pt verbalized understanding. Dr. Jackson's office called him yesterday and he's currently scheduled to see them on 01/30/23. Advised pt that he can reach out to them to see if they recommend starting Coumadin prior or plan to wait until OV in January to discuss. Made pt aware that we can always refer back to CC, and this is not an issue. Pt agreeable to this and verbalized understanding. Day Richardson Ma Reviewed patient's chart in regards to his most recent visit with Dr. Patino. It looks like he is not supposed to take the Coumadin as he was having a GI bleeding. Dr Patino recommended to continue to hold Coumadin. Patient should reach out to Dr. Jackson and Dr. Jewell Herring's office to get an appointment, see when he can restart Coumadin. We can always refer back to Coumadin clinic or respond to them if they have any questions. Jaun Hinson APRN.CNP Pt states he was told by Ce Faust at [facility] that he should not take coumadin bc of polyps that were found during colonoscopy. Pt states he has not taken it for ~2 mths. Pt states he was referred to Dr Jackson by Ce however he still hasn't heard back from Dr Jackson's office to schedule an appt. Pt received a call from the coumadin clinic asking why he hasn't been checking is coumadin. Pt is concerned he will be kicked out of the coumadin clinic & is asking what he should be doing? Please advise. Melissa Mckeon LPN documented in this encounter [facility] 12-03-2022 Miscellaneous Notes Call placed to Franc with [facility] and verbal order given to continue HH POC as requested. Eleanor Nobles RN Okay to continue with home health. Jaun Hinson APRN.CNP Franc with [facility] calls to request orders to continue nursing HH services for an additional 1 wk 2 for monitoring patient until he is seen by Dr. Jackson for follow up for gi polyps. Requesting verbal order be phoned to [phone] if provider agrees. Eleanor Nobles RN documented in this encounter [facility] 11-28-2022 Miscellaneous Notes The following approved medication requests have been transmitted electronically. Requested Prescriptions Pending Prescriptions Disp Refills gabapentin (NEURONTIN) 300 mg capsule 270 capsule 2 Sig: Take 3 capsules by mouth three times daily for 90 days. Jaun Hinson APRN.RODRIGUEZ Patient has been identified by name and date of : Pharmacy phones for refill(s): Requested Prescriptions Pending Prescriptions Disp Refills gabapentin (NEURONTIN) 300 mg capsule 270 capsule 2 Sig: Take 3 capsules by mouth three times daily for 90 days. Date of last office visit in primary care: 11/17/2022, no future appt scheduled Last 2 Encounter Wt Readings: Date: Wt: 11/17/2022 121.6 kg (268 lb) 10/14/2022 120.9 kg (266 lb 9.6 oz) Previous labs/tests for medication: Not applicable Please advise. Thank you. Kaitlin King LPN documented in this encounter [facility] 11-21-2022 Note [facility] 11-21-2022 History of Presen t illness Narrative Primary Care Pharmacy Visit CC (Reason for Consult): (E11.40, Z79.4) Type 2 diabetes mellitus with diabetic neuropathy, with long-term current use of insulin ([facility]) (primary encounter diagnosis) Goal(s): <8% Last Collaborating Physician Visit: 11/17/22 Lovely Devi is a 77 year old male presenting for follow up visit by telephone. Patient consents to pharmacy collaborative practice agreement. . At last visit with pharmacy on 10/10/22 the following changes were made: no med changes made, adjusted med list to reflect patients current insulin doses Notable interim history: hospitalized for chest pain and GI bleed. Seen by PCP for hospital follow up on 11/17: warfarin on hold since GI bleed, metolazone started HPI: Starting to feel better since being back home Has home care coming to the home Since being home from the hospital BG readings have been higher Often waking up with BG readings in the 200s Continues to use CGM GLYCEMIC CONTROL: Date range Overall AVG 12a-6a 6a-12p 12p-6p 6p-12a TIME IN RANGE 14 days 7 day ABOVE 48% 14 day 181 147 193 212 179 IN (80-180) 52% 30 day 175 164 176 178 182 BELOW 0% 90 day Past medical history reviewed. MEDICATIONS: Adherence: denies missed doses ALLERGIES Allergen Reactions Milk GI Upset Diarrhea Morphine Rocephin [Ceftriaxo* Other: See Comments Hot flashes; redness to skin Current Outpatient Medications Medication Sig Dispense Refill sucralfate (CARAFATE) 1 gram tablet Take 1 tablet by mouth three times daily. For 14 days carvedilol (COREG) 6.25 mg tablet Take 1 tablet by mouth twice daily with meals. isosorbide mononitrate ER (IMDUR) 60 mg 24 hr tablet Take 1 tablet by mouth once daily. metOLazone (ZAROXOLYN) 2.5 mg tablet Take 1 tablet by mouth once daily. 30 tablet 1 insulin lispro (HUMALOG KWIKPEN INSULIN) 100 unit/mL Inject 21 Units subcutaneously three times daily before meals. Plus sliding scale as directed ( 1 unit for every 50 mg/dL above 150 mg/dL) 7 Each 5 ondansetron orally disintegrating (ZOFRAN ODT) 4 mg disintegrating tablet Take 1 tablet by mouth every 6 hours as needed for nausea/vomiting. 10 tablet 2 albuterol (PROVENTIL) 2.5 mg /3 mL (0.083 %) nebulizer solution USE 1 VIAL IN NEBULIZER EVERY 4 HOURS NEEDED FOR WHEEZING FOR 30 DAYS 3 mL 11 dapagliflozin propanediol (FARXIGA) 10 mg tablet Take 1 tablet by mouth daily with breakfast. Please apply 1 time free voucher: RxBin: [id number] PCN: [id number] Group: [id number] ID:[id number] 90 tablet 3 dulaglutide (TRULICITY) 3 mg/0.5 mL pen injector Inject 3 mg subcutaneously one time a week. 6 mL 3 latanoprost (XALATAN) 0.005 % ophthalmic solution Use 1 Drop in both eyes three times daily. 2.5 mL 11 nitroglycerin sublingual (NITROQUICK) 0.3 mg SL tablet Dissolve 0.4 mg under the tongue. Usual dose for angina is 1 tablet every 5 minutes for maximum of 3 doses in 15 minutes. 100 tablet 5 insulin glargine (BASAGLAR KWIKPEN U-100 INSULIN) 100 unit/mL (3 mL) Inject 30 Units subcutaneously every morning AND 30 Units daily at bedtime. Patient Assistance Medication. 7 Each 5 potassium chloride ER (KLOR-CON) 20 mEq tablet Take 1 tablet by mouth once daily. 90 tablet 3 rOPINIRole (REQUIP) 0.5 mg tablet Take 2 tablets by mouth daily at bedtime. 180 tablet 3 gabapentin (NEURONTIN) 300 mg capsule Take 3 capsules by mouth three times daily for 90 days. 270 capsule 2 warfarin (COUMADIN) 3 mg tablet 3 mg every Mon, Wed, Fri; 6 mg all other days 90 tablet 3 nortriptyline (PAMELOR) 25 mg capsule Take 1 capsule by mouth daily at bedtime. 90 capsule 3 Nebulizer and Compressor For Neb 1 Each four times daily as needed. 1 Each 0 furosemide (LASIX) 20 mg tablet Take 4 tablets by mouth once daily. (Patient taking differently: Take 40 mg by mouth once daily. Two tabs daily) flash glucose scanning reader (FREESTYLE FILI 2 READER) Use to check blood sugar at least four (4) times daily. 1 Each 0 Insulin Syringe-Needle U-100 (BD ULTRAFINE INSULIN) 1 mL 31 gauge x 5/16 1 Each five times daily. 450 Each 3 BIPAP Initiate BiPAP @ 24/18 cm of water with humidification. Mask (per patient preference), chin strap, filters, tubing / heated tubing, heated humidity and lifetime supplies. Dx. JESSICA G47.33 327.23 - fax compliance download to [phone] 1 Device 0 blood sugar diagnostic ([employer] BLOOD GLUCOSE SYSTEM) test strip Use as instructed to check blood sugar 3 to 4 times daily DM: yes Insulin: yes DX:11.9 [address] (PROTONIX) 40 mg tablet Take 40 mg by mouth once daily. Lancets (ONE TOUCH ULTRASOFT LANCETS) lancets Use with [employer] Glucometer as directed 100 Each 3 No current facility-administered medications for this visit. EXAM: There were no vitals taken for this visit. Last 3 Encounter BP Readings: Date: BP: 11/17/2022 110/68 10/14/2022 118/72 09/22/2022 129/82 Wt: 121.6 kg (268 lb) BMI: 40.75 kg/(m^2) LABS: reviewed Lab Results Component Value Date HBA1C 7.5 10/07/2022 HBA1C 8.1 07/11/2022 HBA1C 7.9 03/06/2022 HBA1C 7.2 05/01/2021 HBA1C 7.2 03/04/2021 HBA1C 6.9 10/23/2020 Glucose 235 11/17/2022 BUN 15 11/17/2022 Creatinine 1.03 11/17/2022 Sodium 138 11/17/2022 Potassium 4.1 11/17/2022 Chloride 101 11/17/2022 CO2 23 11/17/2022 Protein, Total 6.6 10/07/2022 Albumin 3.6 10/07/2022 Calcium 8.9 11/17/2022 Alkaline Phosphatase 91 10/07/2022 Bilirubin, Total 0.6 10/07/2022 AST 22 10/07/2022 ALT 13 10/07/2022 Lab Results Component Value Date CHOL 102 07/11/2022 CHOL 117 04/23/2020 LDL 36 07/11/2022 LDL 47 04/23/2020 HDL 39 07/11/2022 HDL 32 04/23/2020 TG 134 07/11/2022 TG 192 04/23/2020 Albumin/Creat Ratio (mg/g) Date Value 05/01/2021 Not calculated GFR (mL/MIN) Date Value 01/04/2020 54 eGFR- (no units) Date Value 02/19/2021 60 ASSESSMENT/PLAN: 1. Type 2 diabetes mellitus with diabetic neuropathy, with long-term current use of insulin ([facility]) - ICD9: 250.60, 357.2, V58.67, ICD10: E11.40, Z79.4 - Controlled. A1c goal <8&. A1c not at goal at last check. SMBGs more elevated likely due to recent health concerns and GI bleed. Today, will increase basal insulin for improved BG control. - Increase Insulin glargine (Lantus/Basaglar/Toujeo) to 32 units twice daily - Continue all other medications at same doses - Blood glucose monitoring on a continuous glucose monitoring schedule Follow up: Pharmacy follow up: 12/26/22 Cholo Thorpe, PharmD, BCACP Primary Care Clinical Pharmacist The majority of the pharmacy visit (> 50%) was spent counseling and/or coordinating care for the patient. interaction: telephonic time was 20 minutes. documented in this encounter [facility] 11-17-2022 Miscellaneous Notes Message left on secure voicemail with verbal okay for start of care 11/10/22. Nadira Murillo RN OK for verbal okay for nursing start of care with date of 11/10/22, as requested Trev Patino MD nurse Joana @ [facility] calling with request for verbal okay for nursing start of care with date of 11/10/22 which is considered delay in start of care. Nursing is seeing patient for medication and disease education. May leave message on secure voice mail # [phone]. Nadira Murillo RN documented in this encounter [facility] 11-17-2022 Note [facility] 11-17-2022 History of Presen t illness Narrative Chief Complaint Patient presents with: Transition Of Care HPI Lovely Devi is a 77 year old male who presents here today for Hospital Discharge Follow up.. 14 day TCM Pt was admitted to [facility] on 11/05/22 with c/o chest pain. Discharged home 11/09/22. Pt started on Protonix 40 mg daily and Carafate 1 gram TID x 14 days when discharged. He is holding coumadin at this time. Had 2 units of PRBCs transfused. Hb at time of discharge 8.6. He is to follow up in [address] Yordan Palma and Dr. Jewell Herring. Was seen by them on 11/13/22. Is scheduled for repeat EGD on 11/26/22. GI - Reports stool color has resumed back to normal color. Bowels have returned to diarrhea the past two days, uncertain what this has come from. Pt has been doing weight checks at home. When discharged from the hospital he was 261 lbs. Today's weight at home was 267 lbs, in office today was 268 lbs. Pt's Lasix 40 mg was increased to 120 mg daily. Pt reports feeling sob with moving and when laying down at night to sleep. Notes swelling in his left lower leg/foot. Has AFO brace on this foot. Uses Rollator. Continues to still have chest pain, but they were unable to find the cause of this. Follows with [facility], Dr. Perry. Pt believes he's scheduled for a f/u on 11/24 or somewhere around there. DVT - hx of DVT. Currently holding Coumadin due to anemia and GI Bleed. Concerned about re-occurring blood clots due to being off Coumadin. 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 Faust. Reported having 2 episodes of melena about 2 weeks prior to this which then resolved. EGD revealed multiple gastric polyps concerning for malignancy, which were resected and biopsied. We revealed several small polyps less concerning for malignancy. Postop, patient was found to have a hemoglobin of 5.8. Recheck hemoglobin was 6.1, so patient was admitted for further management. On my interview, patient was resting comfortably in bed in his room in the PCU. States he feels improved after receiving 2 units of blood. States he has generally felt lethargic recently and has had dyspnea with only mild exertion. He denies any hematemesis. He denies any early satiety or changes in appetite. He denies any weight loss recently. He denies any fevers or chills. Patient lives with his and daughter at home. He has been able to do most things around the house for himself until recently due to his significant dyspnea on exertion. No other acute concerns at this time. Plan #Acute blood loss anemia due to GI bleed had gastric polyps resected recently during EGD Hb after EGD was 5.8, and on recheck was 6.1 s/p transfusion of 2 units of PRBCs Hb today is 8.6. on PPI #Gastric polyps Had gastric polyps resected on day of admission. CT of the chest abdomen and pelvis with p.o. and IV contrast done showed thickening of the distal portion of the stomach but no evidence of metastatic malignancy. Management as per general surgery. per GI, he had multiple areas of erosion, so to keep off coumadin for now. #Elevated troponins Initial troponin was in the 80s and trended up slightly to 102. Likely due to acute on chronic anemia and resultant demand ischemia. Patient denies any chest pain. 2D echo done showed EF of 55% with normal diastolic function and no regional wall motion abnormalities noted as well as presence of ICD or pacer leads in the right ventricle and right atrium he developed chest pain today. EKG showed no acute ST changes. troponins were not elevated he does have a history of CAD, so discussed with cardiology, and cardiology consult placed. Will await their rec's. #Hypokalemia: resolved. #THrombocytopenia: resolved. Platelets are 144. #History of DVT: On Coumadin which is currently on hold. Per general surgery, to continue holding Coumadin. He will need to be scoped again by general surgery and so Coumadin to be held until okay to resume per general surgery. This will be decided on outpatient basis. #CAD Has a history of ischemic cardiomyopathy and had diagnostic cardiac cath done in 523 which showed EF of 35% and an occluded RCA with good collateral flow, moderate left circumflex disease and moderate LAD disease and also showed inferior mid akinesis and moderate global hypokinesis. On Coreg and Lasix as well as Imdur. cardiology consulted today in light of onset of chest pain #Type 2 diabetes mellitus: On Lantus 30 units twice daily. Insulin sliding scale. Checks ACHS. Lantus dose was decreased to 20 units bid on admission Also on dapagliflozin and Trulicity as well as gabapentin for neuropathy. #Hyperlipidemia: on statin #Restless leg syndrome: on ropinirole DVT prophylaxis: SCDs Summary of Care Provided Minutes Spent on Discharge: 48 Hospital Course: Patient is a 77 y/o male with a PMH as outlined who initially came to the hospiital for an endoscopy for EGD and colonoscopy with General surgery o/a of melena. EGD showed multiple gastric polyps concerning for malignancy which were resected and biopsied. He was found to have Hb of 5.8, with a recheck of 6.1. He was therefore admitted for acue on chronic anemia. He was transfused with 2 units of PRBCs. Hospital course was also complicated by hypotension, thought to be due to the anemia. His troponins were elevated, but he didnt have any chest pain, and it was thought to be due to the hypotension and anemia result in demand ischemia. He was placed on pantoprazole. Hospital course was complicated by shortness of breath, and he was managed for acute on chronic HfrEF. He was diuresed with iV lasix. Repeat 2D echo showed EF of 55% with normal diastolic function and no regional wall motion abnormalities noted as well as presence of ICD or pacer leads in the right ventricle and right atrium. His shortness of breath improved and resolved. He also developed chest pain, and cardiology was consulted in light of his history of heart disease. Cardiology evaluated him and demed the chest pain as likely being non anginal in quality and so decided on no further workup. Patient remained stable and was discharged home on 11/09/2022. Per general surgery recommendation, he was to stay off his coumadin until he was reviewed on outpatient basis by general surgery as he was going to need repeat EGD. General surgery to determine when he could resume his coumadin. Patient counseled that he would be at increased risk of DVT and PE since he was off his coumadin, and he expressed understanding of it. Patient seen and examined prior to surgery. He had no active complaints and felt well. He had an uneventful night. Review of systems was otherwise negative. Labs and vitals reviewed, Home meds reviewed and reconciled. Past medical history, appointments, medications, allergies reviewed. Previous Medical History PAST MEDICAL HISTORY Diagnosis Date ASHD (arteriosclerotic heart disease) 02/19/2015 Atrial fibrillation (HCC) 07/03/2011 Automatic implantable cardiac defibrillator in situ Petit's esophagus with esophagitis 03/01/2015 Benign neoplasm of colon Chronic diarrhea 09/16/2011 Coronary atherosclerosis of unspecified type of vessel, makah or graft s/p AK in 1985 Diverticulosis of colon (without mention of hemorrhage) Duodenitis without mention of hemorrhage Dysphagia 03/01/2015 Facet arthritis of lumbar region 07/14/2017 GERD (gastroesophageal reflux disease) 06/10/12 Heart attack (HCC) Labyrinthitis 02/05/2010 Neurocardiogenic syncope 03/01/2015 Obesity 09/16/2011 JESSICA treated with BiPAP DME [employer] Other and unspecified hyperlipidemia Other specified forms of chronic ischemic heart disease Paroxysmal ventricular tachycardia (HCC) Snoring Stroke (HCC) Tinea of nail 01/13/2011 Type 2 diabetes mellitus with st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, with long-term current use of insulin (HCC) 06/15/2017 Unspecified essential hypertension Previous Surgical History PAST SURGICAL HISTORY Procedure Laterality Date COLONOSCOPY FLX DX W/COLLJ SPEC WHEN PFRMD 12/21/2017 Dr. Anthony-repeat 3 years-11/2020 COLONOSCOPY W/BIOPSY SINGLE/MULTIPLE 02/21/2009 ESOPHAGOGASTRODUODENOSCOPY TRANSORAL DIAGNOSTIC EGD ESOPHAGOGASTRODUODENOSCOPY TRANSORAL DIAGNOSTIC [facility]OPHAGOGASTRODUODENOSCOPY TRANSORAL DIAGNOSTIC 05/24/2015 EGD ESOPHAGOGASTRODUODENOSCOPY TRANSORAL DIAGNOSTIC 12/21/2017 Dr. Anthony-repeat 3 years-11/2020 HEART CATHETERIZATION 12/15/2014 [facility] - see scanned documents HEART SURGERY HX 1 stent LEFT HEART CATH,PERCUTANEOUS Cardiac cath, L heart LEFT HEART CATH,PERCUTANEOUS 06/20/2011 Cardiac cath, L heart PAST SURGICAL HISTORY OF ICD/ pacemaker at [facility] PERC TRANSL COR ANGIO Percutaneous Transluminal Coronary Angio Status REMV CATARACT EXTRACAP,INSERT LENS Bilateral 2020 Right corrected in 2020 and left 2018. Family History FAMILY HISTORY Problem Relation Age of Onset Stroke Mother Heart Mother Cancer Father prostate Heart Father Breast Cancer Sister Breast Cancer Sister Diabetes Sister Diabetes Brother Diabetes Brother Patient Allergies ALLERGIES Allergen Reactions Morphine Rocephin [Ceftriaxo* Other: See Comments Hot flashes; redness to skin Current Medications Current Outpatient Medications on File Prior to Visit Medication Sig potassium chloride ER (KLOR-CON) 20 mEq tablet Take 1 tablet by mouth once daily. insulin glargine (BASAGLAR KWIKPEN U-100 INSULIN) 100 unit/mL (3 mL) Inject 30 Units subcutaneously every morning AND 30 Units daily at bedtime. Patient Assistance Medication. rOPINIRole (REQUIP) 0.5 mg tablet Take 2 tablets by mouth daily at bedtime. gabapentin (NEURONTIN) 300 mg capsule Take 3 capsules by mouth three times daily for 90 days. insulin lispro (HUMALOG KWIKPEN INSULIN) 100 unit/mL Inject 21 Units subcutaneously three times daily before meals. Plus sliding scale as directed ( 1 unit for every 50 mg/dL above 150 mg/dL) ondansetron orally disintegrating (ZOFRAN ODT) 4 mg disintegrating tablet Take 1 tablet by mouth every 6 hours as needed for nausea/vomiting. warfarin (COUMADIN) 3 mg tablet 3 mg every Mon, Wed, Fri; 6 mg all other days torsemide (DEMADEX) 5 mg tablet Take 1 tablet by mouth once daily for 14 days. Take 30 minutes before taking lasix (Patient not taking: Reported on 10/14/2022) nortriptyline (PAMELOR) 25 mg capsule Take 1 capsule by mouth daily at bedtime. Nebulizer and Compressor For Neb 1 Each four times daily as needed. albuterol (PROVENTIL) 2.5 mg /3 mL (0.083 %) nebulizer solution USE 1 VIAL IN NEBULIZER EVERY 4 HOURS NEEDED FOR WHEEZING FOR 30 DAYS carvedilol (COREG) 3.125 mg tablet TAKE 1 TABLET BY MOUTH TWICE DAILY WITH MEALS FOR 30 DAYS furosemide (LASIX) 20 mg tablet Take 4 tablets by mouth once daily. (Patient taking differently: Take 40 mg by mouth once daily. Two tabs daily) dapagliflozin (FARXIGA) 10 mg tablet Take 1 tablet by mouth daily with breakfast. Please apply 1 time free voucher: RxBin: [id number] PCN: [id number] Group: [id number] ID:[id number] dulaglutide (TRULICITY) 3 mg/0.5 mL pen injector Inject 3 mg subcutaneously one time a week. flash glucose scanning reader ([employer] FILI 2 READER) Use to check blood sugar at least four (4) times daily. Insulin Syringe-Needle U-100 (BD ULTRAFINE INSULIN) 1 mL 31 gauge x 5/16 1 Each five times daily. latanoprost (XALATAN) 0.005 % ophthalmic solution Use 1 Drop in both eyes three times daily. BIPAP Initiate BiPAP @ 24/18 cm of water with humidification. Mask (per patient preference), chin strap, filters, tubing / heated tubing, heated humidity and lifetime supplies. Dx. JESSICA G47.33 327.23 - fax compliance download to [phone] isosorbide mononitrate ER (IMDUR) 30 mg 24 hr tablet Take 60 mg by mouth once daily. blood sugar diagnostic ([employer] BLOOD GLUCOSE SYSTEM) test strip Use as instructed to check blood sugar 3 to 4 times daily DM: yes Insulin: yes DX:11.[address] (PROTONIX) 40 mg tablet Take 40 mg by mouth once daily. Lancets (ONE TOUCH ULTRASOFT LANCETS) lancets Use with [employer] Glucometer as directed CRESTOR 40 MG TAB Take one(1) tablet daily. NITROGLYCERIN 0.3 MG SUBLINGUAL TAB Dissolve 0.4 mg under the tongue. Usual dose for angina is 1 tablet every 5 minutes for maximum of 3 doses in 15 minutes. No current facility-administered medications on file prior to visit. Social History Social History Tobacco Use Smoking status: Former Types: Cigars Quit date: 08/12/2007 Years since quittin.2 Smokeless tobacco: Never Tobacco comments: 2-3 per day Vaping Use Vaping Use: Never used Substance Use Topics Alcohol use: No Drug use: No EXAM: BP 110/68 (BP Site: Left Arm, BP Position: Sitting, BP Cuff Size: Large Adult) Pulse 92 Resp 20 Wt 121.6 kg (268 lb) BMI 40.75 kg/m General Appearance: Well appearing, alert, in no acute distress, well-hydrated, well nourished., Morbidly obese, and using a rollator. Lungs: Lungs with basilar rales Heart: Irregular Extremities: Edema noted on L lower leg. Health Maintenance List SPIROMETRY Never done SHINGRIX VACCINE(1 of 2) Never done ADVANCE DIRECTIVE DISCUSSION Never done URINE ALBUMIN:CREATININE RATIO due on 05/01/2022 COVID-19 VACCINE(6 - Pfizer series) due on 05/21/2022 DILATED RETINAL EXAM due on 08/19/2022 INFLUENZA(1) due on 11/28/2022 HBA1C due on 04/09/2023 LDL CHOLESTEROL due on 07/12/2023 DIABETIC FOOT EXAM due on 08/06/2023 ANNUAL PCP TEAM CHRONIC DISEASE VISIT due on 09/23/2023 SERUM CREATININE due on 10/08/2023 BP CONTROLLED (<130/80) due on 10/15/2023 DTAP,TDAP,TD(3 - Td or Tdap) due on 10/17/2027 HEPATITIS C SCREENING Completed PNEUMOCOCCAL: 65+ Completed COLORECTAL CANCER SCREENING Discontinued Data reviewed [facility] reports from 11/05/22 to 11/09/22 ASSESSMENT/PLAN: 1. Hospital discharge follow-up - ICD9: V67.59, ICD10: Z09 (primary diagnosis) 2. Gastrointestinal hemorrhage, unspecified gastrointestinal hemorrhage type - ICD9: 578.9, ICD10: K92.2 Check CBC today; follow with Surg as scheduled - CBC + DIFF 3. Anemia, unspecified type - ICD9: 285.9, ICD10: D64.9 - CBC + DIFF 4. Weight gain - ICD9: 783.1, ICD10: R63.5 Add Zaroxalyn 2.5 mg daily to current lasix dose - METOLAZONE 2.5 MG TABLET - BASIC METABOLIC PNL 5. SOB (shortness of breath) - ICD9: 786.05, ICD10: R06.02 - METOLAZONE 2.5 MG TABLET - BASIC METABOLIC PNL 6. Peripheral vascular disease (HCC) - ICD9: 443.9, ICD10: I73.9 Stable 7. Paroxysmal atrial fibrillation (HCC) - ICD9: 427.31, ICD10: I48.0 Stay off coumadin for now due to GI bleed 8. Ischemic cardiomyopathy - ICD9: 414.8, ICD10: I25.5 9. 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 I agree with the Chief Complaint, ROS, and Past Histories independently gathered by the clinical client application support specialist and the remaining scribed note accurately describes my personal service to the patient. Trev Patino MD The documentation for this note was completed by Day Richardson Ma acting as scribe for Trev Patino MD. November 17, 2022 2:32 PM. Day Dylan Landa documented in this encounter [facility] 11-14-2022 Note [facility] 11-14-2022 Note [facility] 11-13-2022 Miscellaneous Notes Franc notified and voiced understanding. May Martinez Ma Continue with the extra 40 mg dose of lasix daily over the weekend, so take a total of 120 mg lasix every day; will then se how he is doing on Thursday Trev Patino MD Franc- [facility]- reports patient's weight today is an increase of 3 lbs @ 264 #. Yesterday wt: 261 # with the xtra dose of lasix (down 5 # from day before). wt: 266 #. Legs are still +1 pitting edema. LCTA. Patient reports he is doing everything right- no salt, elevating legs. Reports patient is taking lasix 80 mg daily. Next appt with pcp is on . Franc states call him only if new orders and he will call patient. documented in this encounter [facility] 11-11-2022 Miscellaneous Notes Noted and agree Trev Patino MD Hank from [facility] calling with PT plan of care, 2 visits weekly for 3 weeks working on functional mobility training. documented in this encounter [facility] 11-11-2022 Note HNO ID: [id number] Author: Juan Landa May Service: ? Author Type: ? Type: Progress Notes Filed: 11/11/2022 2:08 PM Note Text: Pt notified and voiced understanding. Will continue to monitor weight and keep office up to date. May Juan Landa [facility] 11-11-2022 Note HNO ID: [id number] Author: May Martinez Ma Service: ? Author Type: ? Type: Progress Notes Filed: 11/11/2022 2:08 PM Note Text: I would suggest that he take an extra 40 mg dose of lasix today Trev Patino MD [facility] 11-11-2022 Miscellaneous Notes Images from the original note were not included. Trev Patino MD You 1 hour ago (1:46 PM) Abeba, Yes, I agree with holding the coumadin until 12/04 as recommended by GI. Trev Patino MD Noted, pt was not bridged w/lovenox for procedure (no Rx and cleared to hold w/no bridge per Trev Patino MD per encounter 10/31/22). Removing from lovenox list but routing to PCP to notify/confirm on instructions for extended warfarin hold. iFdelia Gross PharmD, BCACP PATIENT CALL Patient called call center regarding procedure / off warfarin. Patient called and stated he had an EGD on 11/05 and they found sores in his stomach. Patient was advised by provider who did procedure to stay off warfarin until 12/04. Will route to [employer] Salesperson [facility] as patient is on Lovenox list and will place patient on PPC list to see if patient will be resuming after that. Cristina Escobar (Compound Filler) documented in this encounter [facility] 11-11-2022 History of Presen t illness Narrative Pt notified and voiced understanding. Will continue to monitor weight and keep office up to date. May Martinez Ma I would suggest that he take an extra 40 mg dose of lasix today Trev Patino MD TRANSITION CARE MANAGEMENT (TCM) INITIAL CONTACT Aerospace Stress Engineer Outreach Provider Action/FYI: 14 Day TCM Spoke with pt, he feels a little weak this morning. He states he is to call doctor if he gains more than 3 lbs in a day, he states since yesterday he has gained 4 lbs. He is more SOB this morning. He is scheduled with Gastro 11/14/22 and Cardio 11/24/22. Initial contact with patient post discharge, spoke to patient on 11/11/22 Patient identified by name and . TRANSITION CARE MANAGEMENT INITIAL OUTREACH DOCUMENTATION: Date of Outreach: 11/11/2022 Outreach Attempt 1: Contact Made Date of Discharge 11/09/2022 Some recent data might be hidden SUMMARY: -Pt discharged from [facility] on 11/09/22. -Admitted for: Chest pains Below copied from 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 Faust. Reported having 2 episodes of melena about 2 weeks prior to this which then resolved. EGD revealed multiple gastric polyps concerning for malignancy, which were resected and biopsied. We revealed several small polyps less concerning for malignancy. Postop, patient was found to have a hemoglobin of 5.8. Recheck hemoglobin was 6.1, so patient was admitted for further management. On my interview, patient was resting comfortably in bed in his room in the PCU. States he feels improved after receiving 2 units of blood. States he has generally felt lethargic recently and has had dyspnea with only mild exertion. He denies any hematemesis. He denies any early satiety or changes in appetite. He denies any weight loss recently. He denies any fevers or chills. Patient lives with his and daughter at home. He has been able to do most things around the house for himself until recently due to his significant dyspnea on exertion. No other acute concerns at this time. Plan #Acute blood loss anemia due to GI bleed had gastric polyps resected recently during EGD Hb after EGD was 5.8, and on recheck was 6.1 s/p transfusion of 2 units of PRBCs Hb today is 8.6. on PPI #Gastric polyps Had gastric polyps resected on day of admission. CT of the chest abdomen and pelvis with p.o. and IV contrast done showed thickening of the distal portion of the stomach but no evidence of metastatic malignancy. Management as per general surgery. per GI, he had multiple areas of erosion, so to keep off coumadin for now. #Elevated troponins Initial troponin was in the 80s and trended up slightly to 102. Likely due to acute on chronic anemia and resultant demand ischemia. Patient denies any chest pain. 2D echo done showed EF of 55% with normal diastolic function and no regional wall motion abnormalities noted as well as presence of ICD or pacer leads in the right ventricle and right atrium he developed chest pain today. EKG showed no acute ST changes. troponins were not elevated he does have a history of CAD, so discussed with cardiology, and cardiology consult placed. Will await their rec's. #Hypokalemia: resolved. #THrombocytopenia: resolved. Platelets are 144. #History of DVT: On Coumadin which is currently on hold. Per general surgery, to continue holding Coumadin. He will need to be scoped again by general surgery and so Coumadin to be held until okay to resume per general surgery. This will be decided on outpatient basis. #CAD Has a history of ischemic cardiomyopathy and had diagnostic cardiac cath done in which showed EF of 35% and an occluded RCA with good collateral flow, moderate left circumflex disease and moderate LAD disease and also showed inferior mid akinesis and moderate global hypokinesis. On Coreg and Lasix as well as Imdur. cardiology consulted today in light of onset of chest pain #Type 2 diabetes mellitus: On Lantus 30 units twice daily. Insulin sliding scale. Checks ACHS. Lantus dose was decreased to 20 units bid on admission Also on dapagliflozin and Trulicity as well as gabapentin for neuropathy. #Hyperlipidemia: on statin #Restless leg syndrome: on ropinirole DVT prophylaxis: SCDs Summary of Care Provided Minutes Spent on Discharge: 48 Hospital Course: Patient is a 77 y/o male with a PMH as outlined who initially came to the hospiital for an endoscopy for EGD and colonoscopy with General surgery o/a of melena. EGD showed multiple gastric polyps concerning for malignancy which were resected and biopsied. He was found to have Hb of 5.8, with a recheck of 6.1. He was therefore admitted for acue on chronic anemia. He was transfused with 2 units of PRBCs. Hospital course was also complicated by hypotension, thought to be due to the anemia. His troponins were elevated, but he didnt have any chest pain, and it was thought to be due to the hypotension and anemia result in demand ischemia. He was placed on pantoprazole. Hospital course was complicated by shortness of breath, and he was managed for acute on chronic HfrEF. He was diuresed with iV lasix. Repeat 2D echo showed EF of 55% with normal diastolic function and no regional wall motion abnormalities noted as well as presence of ICD or pacer leads in the right ventricle and right atrium. His shortness of breath improved and resolved. He also developed chest pain, and cardiology was consulted in light of his history of heart disease. Cardiology evaluated him and demed the chest pain as likely being non anginal in quality and so decided on no further workup. Patient remained stable and was discharged home on 11/09/2022. Per general surgery recommendation, he was to stay off his coumadin until he was reviewed on outpatient basis by general surgery as he was going to need repeat EGD. General surgery to determine when he could resume his coumadin. Patient counseled that he would be at increased risk of DVT and PE since he was off his coumadin, and he expressed understanding of it. Patient seen and examined prior to surgery. He had no active complaints and felt well. He had an uneventful night. Review of systems was otherwise negative. Labs and vitals reviewed, Home meds reviewed and reconciled. Do you have a hospital follow up appointment with your PCP? Appointment on 11/17/22 with PCP. Yes. Remind patient of appointment date, time, and location. If not within 14 calendar days of discharge - please reschedule accordingly. MEDICATIONS: Many patients have questions or concerns about their medications once they are home. Were you prescribed any new medications? If yes, what are those medications? Protonix 40 mg daily & Carafate 1 gram TID x 14 days Were you told to hold any medications? If yes, what are those medications? Coumadin Were any of your medications discontinued? No Do you have any questions about getting or taking your medications? No Your discharge instructions/After visit Summary (AVS) are important in guiding you through the recovery process. Is there anything I might help you understand? No Do you have all the necessary equipment and supplies at home? Yes Medical records from recent hospitalization: Placed for provider to review documented in this encounter [facility] 11-11-2022 Miscellaneous Notes Noted Trev Patino MD Argelia from [facility] calling with OT plan of care, one time only visit patient declined any further need for OT visits. Patient said he was doing fine with that. documented in this encounter [facility] 11-11-2022 Note [facility] 11-11-2022 Miscellaneous Notes The following approved medication requests have been transmitted electronically. Requested Prescriptions Pending Prescriptions Disp Refills insulin lispro (HUMALOG KWIKPEN INSULIN) 100 unit/mL 7 Each 5 Sig: Inject 21 Units subcutaneously three times daily before meals. Plus sliding scale as directed ( 1 unit for every 50 mg/dL above 150 mg/dL) ondansetron orally disintegrating (ZOFRAN ODT) 4 mg disintegrating tablet 10 tablet 2 Sig: Take 1 tablet by mouth every 6 hours as needed for nausea/vomiting. albuterol (PROVENTIL) 2.5 mg /3 mL (0.083 %) nebulizer solution 3 mL 11 Sig: USE 1 VIAL IN NEBULIZER EVERY 4 HOURS NEEDED FOR WHEEZING FOR 30 DAYS dapagliflozin propanediol (FARXIGA) 10 mg tablet 90 tablet 3 Sig: Take 1 tablet by mouth daily with breakfast. Please apply 1 time free voucher: RxBin: [id number] PCN: [id number] Group: [id number] ID:[id number] dulaglutide (TRULICITY) 3 mg/0.5 mL pen injector 6 mL 3 Sig: Inject 3 mg subcutaneously one time a week. latanoprost (XALATAN) 0.005 % ophthalmic solution 2.5 mL 11 Sig: Use 1 Drop in both eyes three times daily. nitroglycerin sublingual (NITROQUICK) 0.3 mg SL tablet 100 tablet 5 Sig: Dissolve 0.4 mg under the tongue. Usual dose for angina is 1 tablet every 5 minutes for maximum of 3 doses in 15 minutes. insulin glargine (BASAGLAR KWIKPEN U-100 INSULIN) 100 unit/mL (3 mL) 7 Each 5 Sig: Inject 30 Units subcutaneously every morning AND 30 Units daily at bedtime. Patient Assistance Medication. Jaun Hinson APRN.PUPPET MAKER Alexia from [email or web address] phones requesting refills, states the pharm will be taking over refills for pt. Requested Prescriptions Pending Prescriptions Disp Refills insulin lispro (HUMALOG KWIKPEN INSULIN) 100 unit/mL Sig: Inject 21 Units subcutaneously three times daily before meals. Plus sliding scale as directed ( 1 unit for every 50 mg/dL above 150 mg/dL) ondansetron orally disintegrating (ZOFRAN ODT) 4 mg disintegrating tablet 10 tablet 2 Sig: Take 1 tablet by mouth every 6 hours as needed for nausea/vomiting. albuterol (PROVENTIL) 2.5 mg /3 mL (0.083 %) nebulizer solution dapagliflozin propanediol (FARXIGA) 10 mg tablet Sig: Take 1 tablet by mouth daily with breakfast. Please apply 1 time free voucher: RxBin: [id number] PCN: [id number] Group: [id number] ID:[id number] dulaglutide (TRULICITY) 3 mg/0.5 mL pen injector 6 mL 3 Sig: Inject 3 mg subcutaneously one time a week. latanoprost (XALATAN) 0.005 % ophthalmic solution Sig: Use 1 Drop in both eyes three times daily. nitroglycerin sublingual (NITROQUICK) 0.3 mg SL tablet 0 Sig: Dissolve 1 tablet under the tongue. Usual dose for angina is 1 tablet every 5 minutes for maximum of 3 doses in 15 minutes. insulin glargine (BASAGLAR KWIKPEN U-100 INSULIN) 100 unit/mL (3 mL) Sig: Inject 30 Units subcutaneously every morning AND 30 Units daily at bedtime. Patient Assistance Medication. CALVIN: 09/22/22 NOV: 11/17/22 Melissa Mckeon LPN documented in this encounter [facility] 11-11-2022 Miscellaneous Notes Franc notified. May Martinez Ma OK for plan of care OK to refill as ordered Trev Patino MD nurse Brennan @ [facility] calling for verbal okay for plan of care. Patient was seen today for start of care post hospitalization for GI bleed. Nursing will see patient 2 x week for two weeks and 1 x/week for two weeks for disease and medication education. Brennan's ph# [phone]. Requests refill on Potassium Chloride. Pended. Nadira Murillo RN documented in this encounter [facility] 11-07-2022 Miscellaneous Notes Spoke with Taniya at [facility], gave verbal to start care at home. Shereen Holt APRN.PUPPET MAKER Taniya with [facility] calling and states they received a referral for [facility] for patient, for Nursing , PT, OT and ENOLOGIST. Patient will be discharging from [facility] this weekend. They would like to start care on 11/10/22. Asking if provider is agreeable to follow patient for orders? Call Taniya at [phone]. Thank you. documented in this encounter [facility] 10-31-2022 Miscellaneous Notes Called and stp. Advised no bridging needed per Dr. Patino Pt will hold warfarin 10/31-11/04 and resume when cleared post procedure. Next home INR due Mon 11/10 Patient verbalized understanding and agrees with the plan. Susan Villegas PharmD I do not think he needs bridging Trev Patino MD [facility] Anticoagulation Perioperative Planning Lovely Devi is an 77 year old male being evaluated today for perioperative planning. Indication for anticoagulation: a-fib INR goal: 2-3 Referring physician: Dr. Patino Current anticoagulant: Warfarin Procedure: EGD/colonoscopy Date of procedure: 11/05 Procedural bleeding risk (see JACC appendix): Moderate Thrombosis risk (include [id number] if indication is afib): High Weight: Last 1 Encounter Wt Readings: Date: Wt: 10/14/2022 120.9 kg (266 lb 9.6 oz) ALLERGIES Allergen Reactions Morphine Rocephin [Ceftriaxo* Other: See Comments Hot flashes; redness to skin CBC/ PLT: Hemoglobin (g/dL) Date Value 07/11/2022 11.3 05/27/2022 11.7 02/19/2021 11.3 09/14/2020 12.0 01/14/2019 12.0 Hematocrit (%) Date Value 07/11/2022 39.4 05/27/2022 38.7 02/19/2021 37.1 09/14/2020 37.2 01/14/2019 37.9 HCT (%) Date Value 01/04/2020 37.0 12/09/2019 38.6 Platelet Count Date Value Ref Range Status 07/11/2022 163 150 - 400 k/uL Final 05/27/2022 170 150 - 400 k/uL Final 02/19/2021 163 150 - 400 k/uL Final Renal function: Creatinine Date Value Ref Range Status 10/07/2022 1.10 0.73 - 1.22 mg/dL Final 07/11/2022 1.35 (H) 0.73 - 1.22 mg/dL Final 05/27/2022 1.27 (H) 0.73 - 1.22 mg/dL Final Serum creatinine: 1.1 mg/dL 10/07/22923 Estimated creatinine clearance: 71.1 mL/min PT INR (no units) Date Value 07/03/2021 2.7 (biotel) 06/19/2021 2.6 (biotel) 06/05/2021 3.3 (biotel) INR Home CoaguChek (no units) Date Value 10/29/2022 1.7 10/15/2022 1.7 10/01/2022 2.8 Current Warfarin Dosing As of 10/31/2022 Full warfarin instructions: 10/31: Hold; 11/01: Hold; 11/02: Hold; 11/03: Hold; 11/04: Hold; Otherwise 6 mg every day Plan: Date Parenteral agent: Lovenox Warfarin 10/30 None Last dose 10/31 None None 11/01 None None 11/02 120 mg every 12 hours None 11/03 120 mg every 12 hours None 8/8 120 mg in the morning only None 11/05 Procedure day Do not take 9 mg post procedure 8/10 120 mg every 12 hours 6 mg 8/11 120 mg every 12 hours 6 mg 8/12 120 mg every 12 hours 6 mg 8/13 120 mg every 12 hours 6 mg 8/14 120 mg every 12 hours Continue parenteral agent until INR at target range Test INR Patient is being asked to follow the above instructions pre and post-procedure unless otherwise specified by proceduralist. Has patient used LMWH/UFH heparin before? No Does patient require injection technique instructions/education? Yes Does the patient require a new prescription for injections? Yes Send new prescription to the following pharmacy: Trini Ludwig Next action for Anticoagulation Management: [facility] 10/31- did MD respond? Not sure if pt needs lovneox Next POCT: TM pt Bridge plan established and routed to the following: Referring provider for approval Susan Villegas [facility] Clinical Pharmacist, Pharmacy Anticoagulation Clinic Pharmacy Anticoagulation Clinic Pager: [phone] CHADS2-Vasc Score Breakdown 8 Total Score 2 Age >= 75 years old 1 History of CHF 1 History of hypertension 1 History of diabetes mellitus 2 History of stroke, TIA, or thromboemolism 1 History of vascular disease Routing to [facility] to review. Patient placed on Lovenox list. Next Action for Anti coag Management: [facility] 10/31 Meaghan Watson RN Pharmacy Anticoagulation Clinic PATIENT CALL Patient called call center regarding upcoming procedure. Patient will be having upper scope/colonoscopy 11/05. Patient was advised to stop warfarin starting today and to hold for five days. Patient can be reached at [phone] if needed. Chencho Helms (Compound Filler) documented in this encounter [facility] 10-29-2022 Miscellaneous Notes Juice Rice also left a voicemail message with the patient's home INR result today. Noted result has been addressed below. Meaghan Watson RN Pharmacy Anticoagulation Clinic [facility] Ambulatory Pharmacy Anticoagulation Clinic Anticoagulation Episode Summary Anticoagulation Care Providers Provider Role Specialty Phone number Trev Patino MD Referring Family Medicine [phone] Lovely Devi is a 77 year old year old male patient being evaluated today for a Telemanagement visit. Patient is currently on the following anticoagulant(s) Warfarin. Labs PT INR (no units) Date Value 07/03/2021 2.7 (biotel) 06/19/2021 2.6 (biotel) 06/05/2021 3.3 (biotel) INR Home CoaguChek (no units) Date Value 10/29/2022 1.7 10/15/2022 1.7 10/01/2022 2.8 Hemoglobin (g/dL) Date Value 07/11/2022 11.3 02/19/2021 11.3 Hematocrit (%) Date Value 07/11/2022 39.4 02/19/2021 37.1 Platelet Count (k/uL) Date Value 07/11/2022 163 02/19/2021 163 Creatinine (mg/dL) Date Value 10/07/2022 1.10 07/11/2022 1.35 05/27/2022 1.27 02/19/2021 1.40 09/21/2020 1.74 09/14/2020 1.82 Bilirubin, Total (mg/dL) Date Value 10/07/2022 0.6 02/19/2021 0.4 ALT (U/L) Date Value 10/07/2022 13 02/19/2021 46 AST (U/L) Date Value 10/07/2022 22 02/19/2021 41 Estimated Creatinine Clearance: 71.1 mL/min (based on SCr of 1.1 mg/dL). ALLERGIES Allergen Reactions Morphine Rocephin [Ceftriaxo* Other: See Comments Hot flashes; redness to skin Indication for Warfarin: Anticoagulated on coumadin Paroxysmal atrial fibrillation (hcc) Anticoagulation Episode Summary Current INR goal: 2.0-3.0 Assessment: INR result of 1.7 is SUBtherapeutic due to: No obvious cause Pt denies missed or decrease doses, changes in Warfarin tablet color or shape, eating more green vegetables, or consumption of liver or green tea, Ensure, Boost, [place] Instant Breakfast, Mulit-Vitamins, and V-8. Plan: Current Warfarin Dosing As of 10/29/2022 Full warfarin instructions: 6 mg every day; Starting 10/30/2022 Called and spoke to patient/caregiver Advised patient to increase total weekly regimen Next home INR check scheduled on 11/12/2022 Patient verbalizes understanding of the plan. Patient denies need for refills. Kelsie Cerrato RPh Clinical Pharmacist, Pharmacy Anticoagulation Clinic Pharmacy Anticoagulation Clinic Pager: [phone]. documented in this encounter [facility] 10-28-2022 Miscellaneous Notes The following approved medication requests have been transmitted electronically. Requested Prescriptions Pending Prescriptions Disp Refills rOPINIRole (REQUIP) 0.5 mg tablet 180 tablet 3 Sig: Take 2 tablets by mouth daily at bedtime. Jaun Hinson APRN.CNP Last office visit: 09/22/22 F/u scheduled: none May Martinez Ma documented in this encounter [facility] 10-20-2022 Miscellaneous Notes Addended by: DAVID LEE on: 10/20/2022 10:15 AM Modules accepted: Orders 11/28/2022 COLON/EGD WHITE Per Cristina Hung patient to seek PACC appointment piror to procedure due to Pacemaker documented in this encounter [facility] 10-15-2022 Miscellaneous Notes PATIENT CALL Sachin'suleman called regarding INR result for patient. Result has been addressed below, no further action needed. Chencho Helms, Tool And Die Machinist (deputy director of public works) Pharmacy Anticoagulation Clinic [facility] Ambulatory Pharmacy Anticoagulation Clinic Anticoagulation Episode Summary Anticoagulation Care Providers Provider Role Specialty Phone number Trev Patino MD Referring Family Medicine [phone] Lovely Devi is a 76 year old year old male patient being evaluated today for a Telemanagement visit. Patient is currently on the following anticoagulant(s) Warfarin. Labs PT INR (no units) Date Value 07/03/2021 2.7 (biotel) 06/19/2021 2.6 (biotel) 06/05/2021 3.3 (biotel) INR Home CoaguChek (no units) Date Value 10/15/2022 1.7 10/01/2022 2.8 09/17/2022 1.9 Hemoglobin (g/dL) Date Value 07/11/2022 11.3 02/19/2021 11.3 Hematocrit (%) Date Value 07/11/2022 39.4 02/19/2021 37.1 Platelet Count (k/uL) Date Value 07/11/2022 163 02/19/2021 163 Creatinine (mg/dL) Date Value 10/07/2022 1.10 07/11/2022 1.35 05/27/2022 1.27 02/19/2021 1.40 09/21/2020 1.74 09/14/2020 1.82 Bilirubin, Total (mg/dL) Date Value 10/07/2022 0.6 02/19/2021 0.4 ALT (U/L) Date Value 10/07/2022 13 02/19/2021 46 AST (U/L) Date Value 10/07/2022 22 02/19/2021 41 Estimated Creatinine Clearance: 72.2 mL/min (based on SCr of 1.1 mg/dL). ALLERGIES Allergen Reactions Morphine Rocephin [Ceftriaxo* Other: See Comments Hot flashes; redness to skin Indication for Warfarin: Anticoagulated on coumadin Paroxysmal atrial fibrillation (hcc) Anticoagulation Episode Summary Current INR goal: 2.0-3.0 Assessment: INR result of 1.7 is SUBtherapeutic due to: Missed dose(s) - he is not sure when but thinks it was in the past week. Plan: Current Warfarin Dosing As of 10/15/2022 Full warfarin instructions: 3 mg every Mon; 6 mg all other days Called and spoke to patient/caregiver Advised patient to increase dose for 1 day only then resume weekly regimen Next home INR check scheduled on 10/29/2022 Patient verbalizes understanding of the plan. Patient denies need for refills. Kelsie Cerrato RPh Clinical Pharmacist, Pharmacy Anticoagulation Clinic Pharmacy Anticoagulation Clinic Pager: [phone]. documented in this encounter [facility] 10-14-2022 Note [facility] 10-14-2022 History of Presen t illness Narrative HISTORY AND PHYSICAL Lovely Ornelaskayli 1945 REFERRING PHYSICIAN: Shereen Holt APRN.C* CHIEF COMPLAINT: Consult (EGD and colonoscopy) HPI: The patient is a 76 year old male referred for endoscopy. Lovely notes one week ago had a few episodes of black appearing stools, followed by loose stools with some visible brighter blood. Denies associated abdominal pain, dizziness or other complaints. Denies weight or appetite changes. He states stools are now back to normal the last couple of days. He has had a prior remote history of GI bleed. Patient denies NSAID use, minimal rare alcohol use. Denies tobacco use. Patient was seen in the ED at [facility] for above complaints on 10/08/22, report reviewed. Hemoglobin was 9.4. No other acute findings. Patient had been instructed per ED report to follow up with PCP and Gastro as outpatient The patient carries a diagnosis of Petit's esophagus. Lovely has undergone prior endoscopy. Last endoscopy in [address] Anthony with removal of adenomatous polyp. He had upper endoscopy at same setting with findings of gastritis. No esophageal biopsies were taken at that time. Repeat EGD and colonoscopy were recommended in 3 years. Patient's medical history is significant for ASHD, atrial fibrillation, pacemaker, history of AK, stroke, type II diabetes mellitus, hypertension. Patient follows with Dr. Patino in primary care for his chronic medical conditions. PAST MEDICAL HISTORY Diagnosis Date ASHD (arteriosclerotic heart disease) 02/19/2015 Atrial fibrillation (HCC) 07/03/2011 Automatic implantable cardiac defibrillator in situ Petit's esophagus with esophagitis 03/01/2015 Benign neoplasm of colon Chronic diarrhea 09/16/2011 Coronary atherosclerosis of unspecified type of vessel, makah or graft s/p AK in 1985 Diverticulosis of colon (without mention of hemorrhage) Duodenitis without mention of hemorrhage Dysphagia 03/01/2015 Facet arthritis of lumbar region 07/14/2017 GERD (gastroesophageal reflux disease) 06/10/12 Heart attack (HCC) Labyrinthitis 02/05/2010 Neurocardiogenic syncope 03/01/2015 Obesity 09/16/2011 JESSICA treated with BiPAP DME [employer] Other and unspecified hyperlipidemia Other specified forms of chronic ischemic heart disease Paroxysmal ventricular tachycardia (HCC) Snoring Stroke (HCC) Tinea of nail 01/13/2011 Type 2 diabetes mellitus with st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, with long-term current use of insulin (HCC) 06/15/2017 Unspecified essential hypertension PAST SURGICAL HISTORY Procedure Laterality Date COLONOSCOPY FLX DX W/COLLJ SPEC WHEN PFRMD 12/21/2017 Dr. Anthony-repeat 3 years-11/2020 COLONOSCOPY W/BIOPSY SINGLE/MULTIPLE 02/21/2009 ESOPHAGOGASTRODUODENOSCOPY TRANSORAL DIAGNOSTIC EGD ESOPHAGOGASTRODUODENOSCOPY TRANSORAL DIAGNOSTIC 02/16/2008 EGD inpt [facility] H-pylori negative ESOPHAGOGASTRODUODENOSCOPY TRANSORAL DIAGNOSTIC 05/24/2015 EGD ESOPHAGOGASTRODUODENOSCOPY TRANSORAL DIAGNOSTIC 12/21/2017 Dr. Anthony-repeat 3 years-11/2020 HEART CATHETERIZATION 12/15/2014 [facility] - see scanned documents HEART SURGERY HX 1 stent LEFT HEART CATH,PERCUTANEOUS Cardiac cath, L heart LEFT HEART CATH,PERCUTANEOUS 06/20/2011 Cardiac cath, L heart PAST SURGICAL HISTORY OF ICD/ pacemaker at [facility] PERC TRANSL COR ANGIO Percutaneous Transluminal Coronary Angio Status REMV CATARACT EXTRACAP,INSERT LENS Bilateral 2020 Right corrected in 2020 and left 2018. Current Outpatient Medications Medication Sig gabapentin (NEURONTIN) 300 mg capsule Take 3 capsules by mouth three times daily for 90 days. insulin glargine (BASAGLAR KWIKPEN U-100 INSULIN) 100 unit/mL (3 mL) Inject 28 Units subcutaneously every morning AND 28 Units daily at bedtime. Patient Assistance Medication. potassium chloride ER (KLOR-CON) 20 mEq tablet Take 20 mEq by mouth once daily. insulin lispro (HUMALOG KWIKPEN INSULIN) 100 unit/mL Inject 21 Units subcutaneously three times daily before meals. Plus sliding scale as directed ( 1 unit for every 50 mg/dL above 150 mg/dL) ondansetron orally disintegrating (ZOFRAN ODT) 4 mg disintegrating tablet Take 1 tablet by mouth every 6 hours as needed for nausea/vomiting. warfarin (COUMADIN) 3 mg tablet 3 mg every Mon, Wed, Fri; 6 mg all other days nortriptyline (PAMELOR) 25 mg capsule Take 1 capsule by mouth daily at bedtime. Nebulizer and Compressor For Neb 1 Each four times daily as needed. albuterol (PROVENTIL) 2.5 mg /3 mL (0.083 %) nebulizer solution USE 1 VIAL IN NEBULIZER EVERY 4 HOURS NEEDED FOR WHEEZING FOR 30 DAYS carvedilol (COREG) 3.125 mg tablet TAKE 1 TABLET BY MOUTH TWICE DAILY WITH MEALS FOR 30 DAYS furosemide (LASIX) 20 mg tablet Take 4 tablets by mouth once daily. (Patient taking differently: Take 40 mg by mouth once daily. Two tabs daily) dapagliflozin (FARXIGA) 10 mg tablet Take 1 tablet by mouth daily with breakfast. Please apply 1 time free voucher: RxBin: [id number] PCN: [id number] Group: [id number] ID:[id number] dulaglutide (TRULICITY) 3 mg/0.5 mL pen injector Inject 3 mg subcutaneously one time a week. flash glucose scanning reader (OneFoldSTYLE FILI 2 READER) Use to check blood sugar at least four (4) times daily. rOPINIRole (REQUIP) 0.5 mg tablet Take 2 tablets by mouth daily at bedtime. Insulin Syringe-Needle U-100 (BD ULTRAFINE INSULIN) 1 mL 31 gauge x 5/16 1 Each five times daily. latanoprost (XALATAN) 0.005 % ophthalmic solution Use 1 Drop in both eyes three times daily. BIPAP Initiate BiPAP @ 24/18 cm of water with humidification. Mask (per patient preference), chin strap, filters, tubing / heated tubing, heated humidity and lifetime supplies. Dx. JESSICA G47.33 327.23 - fax compliance download to [phone] isosorbide mononitrate ER (IMDUR) 30 mg 24 hr tablet Take 60 mg by mouth once daily. blood sugar diagnostic ([employer] BLOOD GLUCOSE SYSTEM) test strip Use as instructed to check blood sugar 3 to 4 times daily DM: yes Insulin: yes DX:11.[address] (PROTONIX) 40 mg tablet Take 40 mg by mouth once daily. Lancets (ONE TOUCH ULTRASOFT LANCETS) lancets Use with [employer] Glucometer as directed CRESTOR 40 MG TAB Take one(1) tablet daily. NITROGLYCERIN 0.3 MG SUBLINGUAL TAB Dissolve 0.4 mg under the tongue. Usual dose for angina is 1 tablet every 5 minutes for maximum of 3 doses in 15 minutes. torsemide (DEMADEX) 5 mg tablet Take 1 tablet by mouth once daily for 14 days. Take 30 minutes before taking lasix (Patient not taking: Reported on 10/14/2022) No current facility-administered medications for this visit. ALLERGIES: Morphine and Rocephin [Ceftriaxone Sodium] PERSONAL HISTORY: Social History Tobacco Use Smoking status: Former Types: Cigars Quit date: 08/12/2007 Years since quittin.1 Smokeless tobacco: Never Tobacco comments: 2-3 per day Vaping Use Vaping Use: Never used Substance Use Topics Alcohol use: No Drug use: No FAMILY HISTORY: FAMILY HISTORY Problem Relation Age of Onset Stroke Mother Heart Mother Cancer Father prostate Heart Father Breast Cancer Sister Breast Cancer Sister Diabetes Sister Diabetes Brother Diabetes Brother REVIEW OF SYMPTOMS: The review of systems data was entered by the nurse and reviewed by me Nursing Notes: Riana Condon LPN 10/14/2022 8:49 AM Signed REVIEW OF SYSTEMS: General: The patient notes fatigue, denies weight loss, denies weight gain, denies feeling hot, and denies feelings of cold. Eyes: The patient notes glaucoma, notes eye injury/surgery, does not wear glasses or contacts. Ear/Nose/Throat: The patient notes allergies, denies hayfever, denies ear infections, and denies bloody noses. Cardiovascular: The patient denies chest pain, notes heart disease, notes high blood pressure,notes cardiac stent, notes prior heart attack, denies irregular heart beat, notes high cholesterol, denies poor circulation, denies heart failure, other cardiac issues, notes claudication, denies cold feet, denies peripheral arterial stent. Respiratory: The patient denies tuberculosis, denies pneumonia, denies frequent cough, denies pulmonary embolism, notes shortness of breath, and denies coughing up blood. Gastrointestinal: The patient denies difficulty swallowing, notes acid reflux, denies ulcers, denies vomiting, denies jaundice/hepatitis, denies gallbladder problems, denies black or tarry stools, notes hemorrhoids, denies bleeding from rectum, denies diverticulitis, denies constipation, denies diarrhea, denies loss of stool control, and denies hernias. Kidney/Bladder: The patient denies kidney stones, denies urine infections, and notes kidney failure.denies bloody urine. Skin: The patient denies a history of skin cancer, denies bleeding/changing moles, and denies a history of skin rash. Neurologic: The patient denies a history of epilepsy/convulsions, denies headaches, denies head/spinal injuries, and denies stroke/TIA. Psychiatric: The patient denies psychiatric medications, denies depression, and denies voices, denies substance abuse. Endocrine: The patient denies thyroid disorders, notes diabetes, and denies hormonal problems. Hematologic: The patient notes a history of bruising, notes bleeding, and denies anemia, denies blood clots. Infections: The patient denies a history of measles and mumps, denies rheumatic fever, and denies sexually transmitted diseases. Musculoskeletal: The patient notes back pain/injury, denies back problems, denies sciatica, denies knee/foot trouble, notes arthritis, or denies gout. When was patient's last Mammogram screening? N/A Last Colonoscopy: 2018 Riana Condon LPN I have confirmed and edited as necessary, the PFSH and ROS obtained by others. Cristina Rausch PA-C PHYSICAL EXAMINATION: General: The patient is 76 year old male, well nourished, well hydrated in no acute distress. The patient is oriented to time, place, and person. VITALS: Blood pressure 118/72, pulse 95, temperature 36.2 C (97.1 F), height 172.7 cm (5' 8 ), weight 120.9 kg (266 lb 9.6 oz), SpO2 100 %. Body mass index is 40.54 kg/m . HEENT: Normal cephalic, ataumatic, pupils are equally round, sclera are anicteric, mucous membranes are moist, oropharynx is clear. Neck has no masses, asymmetry or lymphadenopathy. Respiratory: Clear to auscultation and percussion. Normal respiratory excursion and pattern. Cardiac: Examination is regular rate and rhythm. Normal S1/S2 Abdominal exam: Soft, nontender, with no palpable masses. No hepatosplenomegaly. No palpable hernias. Extremities: no clubbing, cyanosis or edema. No adenopathy. LABORATORY VALUES: As Noted RADIOLOGIC STUDIES: As Noted Assessment IMPRESSION: black stools, change in bowel habits, history of gastritis, Petit's esophagus PLAN: I have reviewed my findings with the surgeon. We have offered upper end lower endoscopy. We discussed the risks and benefits of the planned endoscopy. I have informed the patient that complications can occur including failure to complete the endoscopy and perforation. The patient had the opportunity to ask questions concerning the planned endoscopy. My staff has also explained the procedure to the patient in understandable terms and has given the patient printed material concerning the procedure. We will plan for Monitored Anesthetic Care. 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 He was given our channel process plant operator's direct contact information should he decide to proceed with scheduling through [facility] Reviewed red flag signs/symptoms for which patient should seek immediate medical attention Patient verbalized understanding of all above and agreed with the plan. Diagnoses: (K92.1) Black stool (primary encounter diagnosis) (Z86.010) History of colonic polyps (Z87.19) History of gastritis (Z95.0) Pacemaker (K22.70, K20.90) Petit's esophagus with esophagitis (D64.9) Anemia, unspecified type (Z87.19) History of GI bleed Consultation requested by Shereen Holt CNPfor an opinion regarding GI bleed and anemia. My final recommendations will be communicated back to the requesting physician by way of shared Medical record or letter to requesting physician via US mail. Cristina Rausch PA-C documented in this encounter [facility] 10-14-2022 Nurse Note REVIEW OF SYSTEMS: General: The patient notes fatigue, denies weight loss, denies weight gain, denies feeling hot, and denies feelings of cold. Eyes: The patient notes glaucoma, notes eye injury/surgery, does not wear glasses or contacts. Ear/Nose/Throat: The patient notes allergies, denies hayfever, denies ear infections, and denies bloody noses. Cardiovascular: The patient denies chest pain, notes heart disease, notes high blood pressure,notes cardiac stent, notes prior heart attack, denies irregular heart beat, notes high cholesterol, denies poor circulation, denies heart failure, other cardiac issues, notes claudication, denies cold feet, denies peripheral arterial stent. Respiratory: The patient denies tuberculosis, denies pneumonia, denies frequent cough, denies pulmonary embolism, notes shortness of breath, and denies coughing up blood. Gastrointestinal: The patient denies difficulty swallowing, notes acid reflux, denies ulcers, denies vomiting, denies jaundice/hepatitis, denies gallbladder problems, denies black or tarry stools, notes hemorrhoids, denies bleeding from rectum, denies diverticulitis, denies constipation, denies diarrhea, denies loss of stool control, and denies hernias. Kidney/Bladder: The patient denies kidney stones, denies urine infections, and notes kidney failure.denies bloody urine. Skin: The patient denies a history of skin cancer, denies bleeding/changing moles, and denies a history of skin rash. Neurologic: The patient denies a history of epilepsy/convulsions, denies headaches, denies head/spinal injuries, and denies stroke/TIA. Psychiatric: The patient denies psychiatric medications, denies depression, and denies voices, denies substance abuse. Endocrine: The patient denies thyroid disorders, notes diabetes, and denies hormonal problems. Hematologic: The patient notes a history of bruising, notes bleeding, and denies anemia, denies blood clots. Infections: The patient denies a history of measles and mumps, denies rheumatic fever, and denies sexually transmitted diseases. Musculoskeletal: The patient notes back pain/injury, denies back problems, denies sciatica, denies knee/foot trouble, notes arthritis, or denies gout. When was patient's last Mammogram screening? N/A Last Colonoscopy: 2017 Riana Codnon LPN documented in this encounter [facility] 10-10-2022 History of Presen t illness Narrative Primary Care Pharmacy Visit CC (Reason for Consult): DM Goal: A1c<7% Last Collaborating Physician Visit: 09/22/22 Lovely Devi is a 76 year old male presenting for follow up visit by telephone. Patient consents to pharmacy collaborative practice agreement. . At last visit with pharmacy on 09/05/22 the following changes were made: no medication changes made HPI: Reports readings mostly unchanged since last follow up Doesn't have much of an appetite Part of change in appetite is worry over being sick and in the hospital Taking Basaglar differently: 30 units BID GLYCEMIC CONTROL: SMBG's: Summary of CGM Findings: (last 14 days) 1- CGM recording is adequate for interpretation 2- Average glucose is 168 mg/dL 12 am - 6 am: 138 mg/dL 6 am -12 pm: 180 mg/dL 12 pm - 6 pm: 160 mg/dL 6 pm - 12 am: 193 mg/dL 3- Total frequency of hypoglycemia: 1% 4- Nocturnal hypoglycemia was noted. 5- Hyperglycemic episodes: 38% 6- Time in target range (70-180 mg/dL): 61 % 7- Low glucose events - last 14 days had 4 events - (12 am- 6 am- 1 event) Past medical, family and social history reviewed and updated. MEDICATIONS: Adherence: denies missed doses ALLERGIES Allergen Reactions Morphine Rocephin [Ceftriaxo* Other: See Comments Hot flashes; redness to skin Current Outpatient Medications Medication Sig Dispense Refill gabapentin (NEURONTIN) 300 mg capsule Take 3 capsules by mouth three times daily for 90 days. 270 capsule 2 insulin glargine (BASAGLAR KWIKPEN U-100 INSULIN) 100 unit/mL (3 mL) Inject 28 Units subcutaneously every morning AND 28 Units daily at bedtime. Patient Assistance Medication. potassium chloride ER (KLOR-CON) 20 mEq tablet Take 20 mEq by mouth once daily. insulin lispro (HUMALOG KWIKPEN INSULIN) 100 unit/mL Inject 21 Units subcutaneously three times daily before meals. Plus sliding scale as directed ( 1 unit for every 50 mg/dL above 150 mg/dL) ondansetron orally disintegrating (ZOFRAN ODT) 4 mg disintegrating tablet Take 1 tablet by mouth every 6 hours as needed for nausea/vomiting. 10 tablet 2 warfarin (COUMADIN) 3 mg tablet 3 mg every Mon, Wed, Fri; 6 mg all other days 90 tablet 3 torsemide (DEMADEX) 5 mg tablet Take 1 tablet by mouth once daily for 14 days. Take 30 minutes before taking lasix 14 tablet 0 nortriptyline (PAMELOR) 25 mg capsule Take 1 capsule by mouth daily at bedtime. 90 capsule 3 Nebulizer and Compressor For Neb 1 Each four times daily as needed. 1 Each 0 albuterol (PROVENTIL) 2.5 mg /3 mL (0.083 %) nebulizer solution USE 1 VIAL IN NEBULIZER EVERY 4 HOURS NEEDED FOR WHEEZING FOR 30 DAYS carvedilol (COREG) 3.125 mg tablet TAKE 1 TABLET BY MOUTH TWICE DAILY WITH MEALS FOR 30 DAYS furosemide (LASIX) 20 mg tablet Take 4 tablets by mouth once daily. (Patient taking differently: Take 40 mg by mouth once daily. Two tabs daily) dapagliflozin (FARXIGA) 10 mg tablet Take 1 tablet by mouth daily with breakfast. Please apply 1 time free voucher: RxBin: [id number] PCN: [id number] Group: [id number] ID:[id number] dulaglutide (TRULICITY) 3 mg/0.5 mL pen injector Inject 3 mg subcutaneously one time a week. 6 mL 3 flash glucose scanning reader (Consult A Doctor FILI 2 READER) Use to check blood sugar at least four (4) times daily. 1 Each 0 rOPINIRole (REQUIP) 0.5 mg tablet Take 2 tablets by mouth daily at bedtime. 180 tablet 3 Insulin Syringe-Needle U-100 (BD ULTRAFINE INSULIN) 1 mL 31 gauge x 5/16 1 Each five times daily. 450 Each 3 latanoprost (XALATAN) 0.005 % ophthalmic solution Use 1 Drop in both eyes three times daily. BIPAP Initiate BiPAP @ 24/18 cm of water with humidification. Mask (per patient preference), chin strap, filters, tubing / heated tubing, heated humidity and lifetime supplies. Dx. JESSICA G47.33 327.23 - fax compliance download to [phone] 1 Device 0 isosorbide mononitrate ER (IMDUR) 30 mg 24 hr tablet Take 60 mg by mouth once daily. 0 blood sugar diagnostic ([employer] BLOOD GLUCOSE SYSTEM) test strip Use as instructed to check blood sugar 3 to 4 times daily DM: yes Insulin: yes DX:11.[address] (PROTONIX) 40 mg tablet Take 40 mg by mouth once daily. Lancets (ONE TOUCH ULTRASOFT LANCETS) lancets Use with [employer] Glucometer as directed 100 Each 3 CRESTOR 40 MG TAB Take one(1) tablet daily. 0 NITROGLYCERIN 0.3 MG SUBLINGUAL TAB Dissolve 0.4 mg under the tongue. Usual dose for angina is 1 tablet every 5 minutes for maximum of 3 doses in 15 minutes. 0 No current facility-administered medications for this visit. EXAM: Last 3 Encounter BP Readings: Date: BP: 09/22/2022 129/82 06/20/2022 128/80 05/12/2022 134/80 Wt: 121.1 kg (267 lb) BMI: 40.60 kg/(m^2) LABS: reviewed Lab Results Component Value Date HBA1C 7.5 10/07/2022 HBA1C 8.1 07/11/2022 HBA1C 7.9 03/06/2022 HBA1C 7.2 05/01/2021 HBA1C 7.2 03/04/2021 HBA1C 6.9 10/23/2020 Glucose 220 10/07/2022 BUN 20 10/07/2022 Creatinine 1.10 10/07/2022 Sodium 138 10/07/2022 Potassium 3.7 10/07/2022 Chloride 97 10/07/2022 CO2 30 10/07/2022 Protein, Total 6.6 10/07/2022 Albumin 3.6 10/07/2022 Calcium 8.7 10/07/2022 Alkaline Phosphatase 91 10/07/2022 Bilirubin, Total 0.6 10/07/2022 AST 22 10/07/2022 ALT 13 10/07/2022 Lab Results Component Value Date CHOL 102 07/11/2022 CHOL 117 04/23/2020 LDL 36 07/11/2022 LDL 47 04/23/2020 HDL 39 07/11/2022 HDL 32 04/23/2020 TG 134 07/11/2022 TG 192 04/23/2020 Albumin/Creat Ratio (mg/g) Date Value 05/01/2021 Not calculated GFR (mL/MIN) Date Value 01/04/2020 54 eGFR- (no units) Date Value 02/19/2021 60 ASSESSMENT/PLAN: 1. Type 2 diabetes mellitus with diabetic neuropathy, with long-term current use of insulin (HCC) - ICD9: 250.60, 357.2, V58.67, ICD10: E11.40, Z79.4 A1c goal <8%. A1c at goal at last check. SMBGs mostly in goal range with some fluctuation due to life stressors. Today, will continue same regimen, advised to notify me if having frequent hypoglycemia. Continue Basaglar 30 units in the morning and 30 units in evening - adjusted med list to match how patient is taking Continue Trulicity 3 mg once weekly Continue Humalog 21 units three times daily before meals + Sliding Scale (1 units for every 50 mg/dL above 150 mg/dL) Continue Farxiga 10 mg once daily Follow up: Pharmacy follow up: 11/21/22 Cholo Thorpe, PharmD, BCACP Primary Care Clinical Pharmacist The majority of the pharmacy visit (> 50%) was spent counseling and/or coordinating care for the patient. interaction: telephonic time was 20 minutes. documented in this encounter [facility] 10-01-2022 Miscellaneous Notes Uguru message sent for therapeutic INR. documented in this encounter [facility] 09-22-2022 Note [facility] 09-22-2022 Instructions Shereen Holt APRN.CNP - 09/22/2022 10:03 AM EDT Get labs completed prior to appointment with Keti Continue to take all medication as prescribed. Keep scheduled appointments with specialist. Continue to work on eating a low-carb diet, decrease any processed foods, increase protein, vegetables, and stay active. Elevate the legs to help with swelling. Follow up in 3 months or sooner as needed. documented in this encounter [facility] 09-22-2022 History of Presen t illness Narrative This is a 76 year old male who presents today with: Patient presents with: F/U 3 months HISTORY OF PRESENT ILLNESS: Lovely Devi is a 76 year old male. Patient presents with: F/U 3 months Here in the office for 3 month follow up. CHF: Following with cardiology, Dr. Perry, and Dr. Ayala in pulmonology. Taking Lasix 80 mg, Coreg 3.125 mg twice daily. Echo and heart cath performed in July. Ejection fraction 35%. Follow up every 6 months. DM: Reports overall feeling well. Medication side effects: No. Home sugar checks: 200's Hypoglycemic spells: Yes. Sometimes, will usually eat a snack Watching diet: Yes. Unexpected weight loss: No. Polyuria, polydipsia: Yes. Vision Changes: No. Foot lesions or numbness or pain: No. Basilar gar, Humalog, and Trulicity through [employer] patient assistance. Taking Farxiga, Basaglar 33 units twice daily, Humalog 23 units 3 times daily, plus sliding scale, and Trulicity 3 mg weekly. A1c in June was 8.1. Following with clinical pharmacy. Labs are due in September. Afib: Managed by pharmacy. Taking Coumadin 3 mg Thursday, Thursday, and Thursday. Taking 6 mg all other days. Last INR 1.9. JESSICA: Following with pulmonology Dr. Jamie, using BiPAP. RLS: Taking Requip 0.5 mg, 2 pills at bedtime. Sadness: Refers that he has had some increased sadness due to 's hospitalization. She had a fall, needed surgery on her hip but then developed an infection. Was in [facility] for 1 month. Currently at [facility] for rehab, antibiotics, is currently not weightbearing. Denies wanting to start any medication at this time. Furs that his is slowly starting to get better. PAST MEDICAL HISTORY: PAST MEDICAL HISTORY Diagnosis Date ASHD (arteriosclerotic heart disease) 02/19/2015 Atrial fibrillation (HCC) 07/03/2011 Automatic implantable cardiac defibrillator in situ Petit's esophagus with esophagitis 03/01/2015 Benign neoplasm of colon Chronic diarrhea 09/16/2011 Coronary atherosclerosis of unspecified type of vessel, makah or graft s/p [place] in 1985 Diverticulosis of colon (without mention of hemorrhage) Duodenitis without mention of hemorrhage Dysphagia 03/01/2015 Facet arthritis of lumbar region 07/14/2017 GERD (gastroesophageal reflux disease) 06/10/12 Heart attack (HCC) Labyrinthitis 02/05/2010 Neurocardiogenic syncope 03/01/2015 Obesity 09/16/2011 JESSICA treated with BiPAP DME [employer] Other and unspecified hyperlipidemia Other specified forms of chronic ischemic heart disease Paroxysmal ventricular tachycardia (HCC) Snoring Stroke (HCC) Tinea of nail 01/13/2011 Type 2 diabetes mellitus with st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, with long-term current use of insulin (HCC) 06/15/2017 Unspecified essential hypertension PAST SURGICAL HISTORY Procedure Laterality Date COLONOSCOPY FLX DX W/COLLJ SPEC WHEN PFRMD 12/21/2017 Dr. Anthony-repeat 3 years-11/2020 COLONOSCOPY W/BIOPSY SINGLE/MULTIPLE 02/21/2009 ESOPHAGOGASTRODUODENOSCOPY TRANSORAL DIAGNOSTIC EGD ESOPHAGOGASTRODUODENOSCOPY TRANSORAL DIAGNOSTIC 02/16/2008 EGD inpt [facility] H-pylori negative ESOPHAGOGASTRODUODENOSCOPY TRANSORAL DIAGNOSTIC 05/24/2015 EGD ESOPHAGOGASTRODUODENOSCOPY TRANSORAL DIAGNOSTIC 12/21/2017 Dr. Anthony-repeat 3 years-11/2020 HEART CATHETERIZATION 12/15/2014 [facility] - see scanned documents HEART SURGERY HX 1 stent LEFT HEART CATH,PERCUTANEOUS Cardiac cath, L heart LEFT HEART CATH,PERCUTANEOUS 06/20/2011 Cardiac cath, L heart PAST SURGICAL HISTORY OF ICD/ pacemaker at [facility] PERC TRANSL COR ANGIO Percutaneous Transluminal Coronary Angio Status REMV CATARACT EXTRACAP,INSERT LENS Bilateral 2020 Right corrected in 2020 and left 2018. ALLERGIES Morphine and Rocephin [Ceftriaxone Sodium] MEDICATIONS Current Outpatient Medications Medication Sig insulin glargine (BASAGLAR KWIKPEN U-100 INSULIN) 100 unit/mL (3 mL) Inject 28 Units subcutaneously every morning AND 28 Units daily at bedtime. Patient Assistance Medication. potassium chloride ER (KLOR-CON) 20 mEq tablet Take 20 mEq by mouth once daily. insulin lispro (HUMALOG KWIKPEN INSULIN) 100 unit/mL Inject 21 Units subcutaneously three times daily before meals. Plus sliding scale as directed ( 1 unit for every 50 mg/dL above 150 mg/dL) ondansetron orally disintegrating (ZOFRAN ODT) 4 mg disintegrating tablet Take 1 tablet by mouth every 6 hours as needed for nausea/vomiting. gabapentin (NEURONTIN) 300 mg capsule Take 3 capsules by mouth three times daily for 90 days. warfarin (COUMADIN) 3 mg tablet 3 mg every Mon, Wed, Fri; 6 mg all other days torsemide (DEMADEX) 5 mg tablet Take 1 tablet by mouth once daily for 14 days. Take 30 minutes before taking lasix nortriptyline (PAMELOR) 25 mg capsule Take 1 capsule by mouth daily at bedtime. Nebulizer and Compressor For Neb 1 Each four times daily as needed. albuterol (PROVENTIL) 2.5 mg /3 mL (0.083 %) nebulizer solution USE 1 VIAL IN NEBULIZER EVERY 4 HOURS NEEDED FOR WHEEZING FOR 30 DAYS carvedilol (COREG) 3.125 mg tablet TAKE 1 TABLET BY MOUTH TWICE DAILY WITH MEALS FOR 30 DAYS furosemide (LASIX) 20 mg tablet Take 4 tablets by mouth once daily. (Patient taking differently: Take 40 mg by mouth once daily. Two tabs daily) dapagliflozin (FARXIGA) 10 mg tablet Take 1 tablet by mouth daily with breakfast. Please apply 1 time free voucher: RxBin: [id number] PCN: [id number] Group: [id number] ID:[id number] dulaglutide (TRULICITY) 3 mg/0.5 mL pen injector Inject 3 mg subcutaneously one time a week. flash glucose scanning reader (Consult A Doctor FILI 2 READER) Use to check blood sugar at least four (4) times daily. rOPINIRole (REQUIP) 0.5 mg tablet Take 2 tablets by mouth daily at bedtime. Insulin Syringe-Needle U-100 (BD ULTRAFINE INSULIN) 1 mL 31 gauge x 5/16 1 Each five times daily. latanoprost (XALATAN) 0.005 % ophthalmic solution Use 1 Drop in both eyes three times daily. BIPAP Initiate BiPAP @ 24/18 cm of water with humidification. Mask (per patient preference), chin strap, filters, tubing / heated tubing, heated humidity and lifetime supplies. Dx. JESSICA G47.33 327.23 - fax compliance download to [phone] isosorbide mononitrate ER (IMDUR) 30 mg 24 hr tablet Take 60 mg by mouth once daily. blood sugar diagnostic ([employer] BLOOD GLUCOSE SYSTEM) test strip Use as instructed to check blood sugar 3 to 4 times daily DM: yes Insulin: yes DX:11.[address] (PROTONIX) 40 mg tablet Take 40 mg by mouth once daily. Lancets (ONE TOUCH ULTRASOFT LANCETS) lancets Use with CeDe Groupuch Glucometer as directed CRESTOR 40 MG TAB Take one(1) tablet daily. NITROGLYCERIN 0.3 MG SUBLINGUAL TAB Dissolve 0.4 mg under the tongue. Usual dose for angina is 1 tablet every 5 minutes for maximum of 3 doses in 15 minutes. No current facility-administered medications for this visit. FAMILY HISTORY Problem Relation Age of Onset Stroke Mother Heart Mother Cancer Father prostate Heart Father Breast Cancer Sister Breast Cancer Sister Diabetes Sister Diabetes Brother Diabetes Brother Social History Tobacco Use Smoking status: Former Types: Cigars Quit date: 08/12/2007 Years since quittin.1 Smokeless tobacco: Never Tobacco comments: 2-3 per day Vaping Use Vaping Use: Never used Substance Use Topics Alcohol use: No Drug use: No REVIEW OF SYSTEMS GENERAL: No weight loss, malaise or fevers/chills HEENT: Negative for frequent or significant headaches, No changes in hearing or vision. NECK: Negative for lumps, goiter, pain and significant neck swelling RESPIRATORY: Negative for cough, hemoptysis, wheezing, dyspnea or shortness of breath CARDIOVASCULAR: Negative for chest pain, leg swelling, orthopnea, or palpitations GI: No nausea, vomiting, or diarrhea/constipation. No hematochezia/melena. No heartburn or reflux symptoms. : No history of dysuria, frequency or incontinence MUSCULOSKELETAL: Negative for joint pain or swelling. SKIN: Negative for lesions, rash, and itching ENDOCRINE: Negative for cold or heat intolerance, polyuria, polydipsia and goiter NEURO: No history of headaches, syncope, paralysis, seizures or tremors MOOD: Negative for depression, anxiety, or suicidal ideation. EXAM: BP 129/82 Pulse 84 Resp 18 Wt 121.1 kg (267 lb) BMI 40.60 kg/m PHYSICAL EXAM: General Appearance: Well appearing, alert, in no acute distress, well-hydrated, well nourished. Skin: Skin color, texture, turgor normal, no suspicious rashes or lesions. Head: Normocephalic, no masses, lesions, tenderness or abnormalities. Eyes: Anicteric sclera. Extraocular movements are intact. Lungs: Lungs clear to auscultation. No wheezing, rhonchi, rales. Heart: RRR without murmur, gallop, or rubs. No ectopy. Extremities: No deformities, edema, skin discoloration, clubbing or cyanosis. Good capillary refill. Peripheral Pulses: Normal, Capillary refill <2secs, strong peripheral pulses, Pulses palpable. Neurologic: Gait normal. Sensation grossly intact. ASSESSMENT/PLAN: 1. Type 2 diabetes mellitus with diabetic neuropathy, with long-term current use of insulin (HCC) - ICD9: 250.60, 357.2, V58.67, ICD10: E11.40, Z79.4 (primary diagnosis) - Uncontrolled - Continue current medications - Counseled on healthy diet and regular exercise - Keep up coming appointment with Clinical pharmacy. - Get labs completed - COMP METABOLIC PANEL - HGB A1C 2. Essential hypertension - ICD9: 401.9, ICD10: I10 - Controlled - Continue current medications - Encouraged sodium restriction, DASH or Mediterranean diet - Recommend regular aerobic exercise 3. ASHD (arteriosclerotic heart disease) - ICD9: 414.00, ICD10: I25.10 - Stable 4. Paroxysmal atrial fibrillation (HCC) - ICD9: 427.31, ICD10: I48.0 - Continue Coumadin Therapy. - Keep scheduled appointments with Cardiology 5. JESSICA (obstructive sleep apnea) - ICD9: 327.23, ICD10: G47.33 - Continue with Bipap - Keep scheduled appointments with Dr. Ayala 6. Restless leg syndrome - ICD9: 333.94, ICD10: G25.81 - Stable, continue current medication. 7. Situational depression - ICD9: 309.0, ICD10: F43.21 - Denied wanting to start medication at this time. Follow up in 3 months or sooner as needed. Discussed treatment plan and patient voices understanding. Patient's questions answered appropriately. Medications and potential side effects were discussed and patient voices understanding. Shereen Holt APRN.CNP This note was partially generated using [employer] voice recognition system. Note was reviewed for accuracy. There may be minor misspellings or grammar miscues with [employer] voice recognition. documented in this encounter [facility] 09-19-2022 Miscellaneous Notes The following approved medication requests have been transmitted electronically. Requested Prescriptions Pending Prescriptions Disp Refills gabapentin (NEURONTIN) 300 mg capsule 270 capsule 2 Sig: Take 3 capsules by mouth three times daily for 90 days. Jaun Hinson APRN.CNP Last office visit: 06/20/22 F/u scheduled: 09/22/22 May Martinez Ma documented in this encounter [facility] 09-17-2022 Miscellaneous Notes [facility] Ambulatory Pharmacy Anticoagulation Clinic Anticoagulation Episode Summary Anticoagulation Care Providers Provider Role Specialty Phone number Trev Patino MD Referring Family Medicine [phone] Lovely Devi is a 76 year old year old male patient being evaluated today for a Telemanagement visit. Patient is currently on the following anticoagulant(s) Warfarin. Labs PT INR (no units) Date Value 07/03/2021 2.7 (biotel) 06/19/2021 2.6 (biotel) 06/05/2021 3.3 (biotel) INR Home CoaguChek (no units) Date Value 09/17/2022 1.9 09/03/2022 1.7 08/20/2022 1.6 Hemoglobin (g/dL) Date Value 07/11/2022 11.3 02/19/2021 11.3 Hematocrit (%) Date Value 07/11/2022 39.4 02/19/2021 37.1 Platelet Count (k/uL) Date Value 07/11/2022 163 02/19/2021 163 Creatinine (mg/dL) Date Value 07/11/2022 1.35 05/27/2022 1.27 03/06/2022 1.50 02/19/2021 1.40 09/21/2020 1.74 09/14/2020 1.82 Bilirubin, Total (mg/dL) Date Value 07/11/2022 0.6 02/19/2021 0.4 ALT (U/L) Date Value 07/11/2022 21 02/19/2021 46 AST (U/L) Date Value 07/11/2022 34 02/19/2021 41 Estimated Creatinine Clearance: 59.5 mL/min (A) (based on SCr of 1.35 mg/dL (H)). ALLERGIES Allergen Reactions Morphine Rocephin [Ceftriaxo* Other: See Comments Hot flashes; redness to skin Indication for Warfarin: Paroxysmal atrial fibrillation (hcc) Anticoagulated on coumadin Anticoagulation Episode Summary Current INR goal: 2.0-3.0 Assessment: INR result of 1.9 is SUBtherapeutic due to: unsure but it has been trending low for a few weeks. Pt denies missed or decrease doses, changes in Warfarin tablet color or shape, eating more green vegetables, or consumption of liver or green tea, Ensure, Boost, [place] Instant Breakfast, Mulit-Vitamins, and V-8. He said his is in the hospital and he hasn't been eating much at all. Plan: Current Warfarin Dosing As of 09/17/2022 Full warfarin instructions: 3 mg every Mon, Fri; 6 mg all other days Called and spoke to patient/caregiver Advised patient to increase total weekly regimen Next home INR check scheduled on 10/01/22 Patient verbalizes understanding of the plan. Patient denies need for refills. Kelsie Cerrato RPh Clinical Pharmacist, Pharmacy Anticoagulation Clinic Pharmacy Anticoagulation Clinic Pager: [phone]. documented in this encounter [facility] 09-05-2022 Note [facility] 09-05-2022 History of Presen t illness Narrative Primary Care Pharmacy Visit CC (Reason for Consult): DM Goal: A1c<7% Last Collaborating Physician Visit: 06/20/22 Lovely Devi is a 76 year old male presenting for follow up visit by telephone. Patient consents to pharmacy collaborative practice agreement. . At last visit with pharmacy on 08/08 the following changes were made: Basaglar dose was decreased HPI: Feels energy levels have been low More life stressors recently due to 's health complications- fell and broke her hip She is hospitalized and kidneys are failing Reports readings have been ok, stable GLYCEMIC CONTROL: SMBG's: Summary of CGM Findings: (last 14 days) 1- CGM recording is adequate for interpretation 2- Average glucose is 180 mg/dL 3- Total frequency of hypoglycemia: 4% 4- Nocturnal hypoglycemia was noted. 5- Hyperglycemic episodes: 26% 6- Time in target range (70-180 mg/dL): 70 % 7- Low glucose events - last 14 days had 4 events -( 6am-12pm- 2, 12-6pm-1- 6pm-12am-1) ROS: As above. Patient denies CP, SOB, FAITH, blurred vision, dizziness or lightheadedness Patient denies nausea, vomiting, diarrhea, abdominal pain Patient denies symptoms of hypoglycemia (sweating, anxiety, palpitations, hunger, and tremor) Patient denies symptoms of hyperglycemia (polyuria, polydipsia, polyphagia) Patient denies potential medication adverse effects Past medical, family and social history reviewed and updated. MEDICATIONS: Adherence: denies missed doses ALLERGIES Allergen Reactions Morphine Rocephin [Ceftriaxo* Other: See Comments Hot flashes; redness to skin Current Outpatient Medications Medication Sig Dispense Refill insulin glargine (BASAGLAR KWIKPEN U-100 INSULIN) 100 unit/mL (3 mL) Inject 28 Units subcutaneously every morning AND 28 Units daily at bedtime. Patient Assistance Medication. potassium chloride ER (KLOR-CON) 20 mEq tablet Take 20 mEq by mouth once daily. insulin lispro (HUMALOG KWIKPEN INSULIN) 100 unit/mL Inject 21 Units subcutaneously three times daily before meals. Plus sliding scale as directed ( 1 unit for every 50 mg/dL above 150 mg/dL) ondansetron orally disintegrating (ZOFRAN ODT) 4 mg disintegrating tablet Take 1 tablet by mouth every 6 hours as needed for nausea/vomiting. 10 tablet 2 gabapentin (NEURONTIN) 300 mg capsule Take 3 capsules by mouth three times daily for 90 days. 270 capsule 2 warfarin (COUMADIN) 3 mg tablet 3 mg every Mon, Wed, Fri; 6 mg all other days 90 tablet 3 torsemide (DEMADEX) 5 mg tablet Take 1 tablet by mouth once daily for 14 days. Take 30 minutes before taking lasix 14 tablet 0 nortriptyline (PAMELOR) 25 mg capsule Take 1 capsule by mouth daily at bedtime. 90 capsule 3 Nebulizer and Compressor For Neb 1 Each four times daily as needed. 1 Each 0 albuterol (PROVENTIL) 2.5 mg /3 mL (0.083 %) nebulizer solution USE 1 VIAL IN NEBULIZER EVERY 4 HOURS NEEDED FOR WHEEZING FOR 30 DAYS carvedilol (COREG) 3.125 mg tablet TAKE 1 TABLET BY MOUTH TWICE DAILY WITH MEALS FOR 30 DAYS furosemide (LASIX) 20 mg tablet Take 4 tablets by mouth once daily. (Patient taking differently: Take 40 mg by mouth once daily. Two tabs daily) dapagliflozin (FARXIGA) 10 mg tablet Take 1 tablet by mouth daily with breakfast. Please apply 1 time free voucher: RxBin: [id number] PCN: [id number] Group: [id number] ID:[id number] dulaglutide (TRULICITY) 3 mg/0.5 mL pen injector Inject 3 mg subcutaneously one time a week. 6 mL 3 flash glucose scanning reader ([employer] FILI 2 READER) Use to check blood sugar at least four (4) times daily. 1 Each 0 rOPINIRole (REQUIP) 0.5 mg tablet Take 2 tablets by mouth daily at bedtime. 180 tablet 3 Insulin Syringe-Needle U-100 (BD ULTRAFINE INSULIN) 1 mL 31 gauge x 5/16 1 Each five times daily. 450 Each 3 latanoprost (XALATAN) 0.005 % ophthalmic solution Use 1 Drop in both eyes three times daily. BIPAP Initiate BiPAP @ 24/18 cm of water with humidification. Mask (per patient preference), chin strap, filters, tubing / heated tubing, heated humidity and lifetime supplies. Dx. JESSICA G47.33 327.23 - fax compliance download to [phone] 1 Device 0 isosorbide mononitrate ER (IMDUR) 30 mg 24 hr tablet Take 60 mg by mouth once daily. 0 blood sugar diagnostic ([employer] BLOOD GLUCOSE SYSTEM) test strip Use as instructed to check blood sugar 3 to 4 times daily DM: yes Insulin: yes DX:11.9 [address] (PROTONIX) 40 mg tablet Take 40 mg by mouth once daily. Lancets (ONE TOUCH ULTRASOFT LANCETS) lancets Use with [employer] Glucometer as directed 100 Each 3 CRESTOR 40 MG TAB Take one(1) tablet daily. 0 NITROGLYCERIN 0.3 MG SUBLINGUAL TAB Dissolve 0.4 mg under the tongue. Usual dose for angina is 1 tablet every 5 minutes for maximum of 3 doses in 15 minutes. 0 No current facility-administered medications for this visit. EXAM: Last 3 Encounter BP Readings: Date: BP: 06/20/2022 128/80 05/12/2022 134/80 05/05/2022 130/80 Wt: 123.3 kg (271 lb 14.4 oz) BMI: 41.34 kg/(m^2) LABS: reviewed Lab Results Component Value Date HBA1C 8.1 07/11/2022 HBA1C 7.9 03/06/2022 HBA1C 7.8 11/19/2021 HBA1C 7.2 05/01/2021 HBA1C 7.2 03/04/2021 HBA1C 6.9 10/23/2020 Glucose 138 07/11/2022 BUN 17 07/11/2022 Creatinine 1.35 07/11/2022 Sodium 139 07/11/2022 Potassium 3.4 07/11/2022 Chloride 100 07/11/2022 CO2 30 07/11/2022 Protein, Total 6.8 07/11/2022 Albumin 3.8 07/11/2022 Calcium 8.9 07/11/2022 Alkaline Phosphatase 90 07/11/2022 Bilirubin, Total 0.6 07/11/2022 AST 34 07/11/2022 ALT 21 07/11/2022 Lab Results Component Value Date CHOL 102 07/11/2022 CHOL 117 04/23/2020 LDL 36 07/11/2022 LDL 47 04/23/2020 HDL 39 07/11/2022 HDL 32 04/23/2020 TG 134 07/11/2022 TG 192 04/23/2020 Albumin/Creat Ratio (mg/g) Date Value 05/01/2021 Not calculated GFR (mL/MIN) Date Value 01/04/2020 54 eGFR- (no units) Date Value 02/19/2021 60 ASSESSMENT/PLAN: 1. Type 2 diabetes mellitus with diabetic neuropathy, with long-term current use of insulin (HCC) - ICD9: 250.60, 357.2, V58.67, ICD10: E11.40, Z79.4 A1c goal <8%. A1c not at goal at last check. SMBGs mostly in goal range with some fluctuation due to life stressors. Today, will continue same regimen, advised to notify me if having frequent hypoglycemia. Continue Basaglar 28 units in the morning and 28 units in evening Continue Trulicity 3 mg once weekly Continue Humalog 21 units three times daily before meals + Sliding Scale (1 units for every 50 mg/dL above 150 mg/dL) Continue Farxiga 10 mg once daily Follow up: Pharmacy follow up: 10/10/22 PCP follow up: 09/22/22 Cholo Thorpe PharmD, BCACP Primary Care Clinical Pharmacist The majority of the pharmacy visit (> 50%) was spent counseling and/or coordinating care for the patient. interaction: telephonic time was 20 minutes. documented in this encounter [facility] 09-03-2022 Miscellaneous Notes [facility] Ambulatory Pharmacy Anticoagulation Clinic Anticoagulation Episode Summary Anticoagulation Care Providers Provider Role Specialty Phone number Trev Patino MD Referring Family Medicine [phone] Lovely Devi is a 76 year old year old male patient being evaluated today for a Telemanagement visit. Patient is currently on the following anticoagulant(s) Warfarin. Labs PT INR (no units) Date Value 07/03/2021 2.7 (biotel) 06/19/2021 2.6 (biotel) 06/05/2021 3.3 (biotel) INR Home CoaguChek (no units) Date Value 09/03/2022 1.7 08/20/2022 1.6 08/13/2022 1.4 Hemoglobin (g/dL) Date Value 07/11/2022 11.3 02/19/2021 11.3 Hematocrit (%) Date Value 07/11/2022 39.4 02/19/2021 37.1 Platelet Count (k/uL) Date Value 07/11/2022 163 02/19/2021 163 Creatinine (mg/dL) Date Value 07/11/2022 1.35 05/27/2022 1.27 03/06/2022 1.50 02/19/2021 1.40 09/21/2020 1.74 09/14/2020 1.82 Bilirubin, Total (mg/dL) Date Value 07/11/2022 0.6 02/19/2021 0.4 ALT (U/L) Date Value 07/11/2022 21 02/19/2021 46 AST (U/L) Date Value 07/11/2022 34 02/19/2021 41 Estimated Creatinine Clearance: 59.5 mL/min (A) (based on SCr of 1.35 mg/dL (H)). ALLERGIES Allergen Reactions Morphine Rocephin [Ceftriaxo* Other: See Comments Hot flashes; redness to skin Indication for Warfarin: Paroxysmal atrial fibrillation (hcc) Anticoagulated on coumadin Anticoagulation Episode Summary Current INR goal: 2.0-3.0 Assessment: INR result of 1.7 is SUBtherapeutic due to: unknown cause - did not speak to patient It has been trending low lately but a few times per due to being off warfarin for his heart cath. Plan: Current Warfarin Dosing As of 09/03/2022 Full warfarin instructions: 3 mg every Mon, Wed, Fri; 6 mg all other days Left voice message Advised patient to increase total weekly regimen Next home INR check scheduled on 09/17/2022 Will send a [employer] message also. Kelsie Cerrato [facility] Clinical Pharmacist, Pharmacy Anticoagulation Clinic Pharmacy Anticoagulation Clinic Pager: [phone]. documented in this encounter [facility] 08-08-2022 Note [facility] 07-30-2022 Miscellaneous Notes Spoke to patient. He is having a heart cath on 08/06 at [facility]. He was advised by his classified ad taker, Dr. Perry to hold warfarin 3 days prior. CHADS2-Vasc Score Breakdown 8 Total Score 2 Age >= 75 years old 1 History of CHF 1 History of hypertension 1 History of diabetes mellitus 2 History of stroke, TIA, or thromboemolism 1 History of vascular disease Spoke with patient who is having a heart catheterization on 08/06 and was advised to hold warfarin for (3) days prior to the procedure. Routing to [facility] to review. Meaghan Watson RN Pharmacy Anticoagulation Clinic PATIENT CALL Patient called call center regarding procedure. Patient will have a catheterization on 08/06/2022. Patient was advised to hold warfarin on 08/06/2022. Patient can be reached at [phone] Chencho Helms (Compound Filler) documented in this encounter [facility] 07-30-2022 Miscellaneous Notes Mychart message sent for nearly therapeutic INR. documented in this encounter [facility] 07-21-2022 Note [facility] 07-21-2022 History of Presen t illness Narrative Associated Order(s): Large Joint Arthro/Inj: R knee joint Post-Procedure Diagnose(s): Primary osteoarthritis of right knee; Chronic pain of right knee Yaya Ibarra MD Department of Orthopaedics Orthopaedics [address] [facility] [address] Dept: [phone] Dept July 21, 2022 CHIEF COMPLAINT: Follow Up and Knee Pain of the Right Knee. HPI AMB ROOMING INTAKE FLOWSHEET DATA Pain Pain Level: 7 Pain Location: Knee-Right Description: Sharp Duration Amount of Time: 2 Duration Units: Weeks Frequency: Intermittent Intervention/Comfort measure: Reposition, Relaxation, Medication (Tylenol) Patient presents with: Right Knee - Follow Up, Knee Pain Patient is 6 month post visit R knee pain with injection given. Pain started up again 2 weeks ago. Requesting repeat injection. ASSESSMENT: M25.561, G89.29 Chronic pain of right knee (primary encounter diagnosis) M17.11 Primary osteoarthritis of right knee SUMMARY/PLAN: Repeat injection. Large Joint Arthro/Inj: R knee joint Informed Consent Consent Obtained: Verbal [place] Protocol A moment to CARE was completed. SIGN IN Personnel directly involved with the procedure wore the appropriate PPE. Special Equipment: N/A Patient/Surrogate Stated/Verified: Patient name, Date of , Relevant allergies and Intended procedure TIME OUT Intended patient and procedure match the source document(s). Consent documented and matches the intended procedure. Relevant labs, photos, and/or imaging studies have been reviewed. Correct side/site marked and visible. Medications required for procedure verified. No fire risk assessment and interventions applicable. No implant(s) inserted. 07/21/2022 2:33 PM The procedure site was prepped in the usual sterile fashion. Site: R knee joint Medications: 6 mg betamethasone acetate-betamethasone sodium phosphate 6 mg/mL Anesthetics: 4 mL lidocaine (PF) 10 mg/mL (1 %) Outcome: Tolerated well, no immediate complications Post-injection instructions were reviewed with the patient and the patient voiced understanding of these instructions. SIGN OUT All instruments, equipment, possible retained foreign bodies accounted for. Supporting Information Below: Medications: Current Outpatient Medications Medication Sig potassium chloride ER (KLOR-CON) 20 mEq tablet Take 20 mEq by mouth once daily. insulin lispro (HUMALOG KWIKPEN INSULIN) 100 unit/mL Inject 21 Units subcutaneously three times daily before meals. Plus sliding scale as directed ( 1 unit for every 50 mg/dL above 150 mg/dL) insulin glargine (BASAGLAR KWIKPEN U-100 INSULIN) 100 unit/mL (3 mL) Inject 28 Units subcutaneously every morning AND 26 Units daily at bedtime. Patient Assistance Medication. ondansetron orally disintegrating (ZOFRAN ODT) 4 mg disintegrating tablet Take 1 tablet by mouth every 6 hours as needed for nausea/vomiting. gabapentin (NEURONTIN) 300 mg capsule Take 3 capsules by mouth three times daily for 90 days. warfarin (COUMADIN) 3 mg tablet 3 mg every Mon, Wed, Fri; 6 mg all other days torsemide (DEMADEX) 5 mg tablet Take 1 tablet by mouth once daily for 14 days. Take 30 minutes before taking lasix nortriptyline (PAMELOR) 25 mg capsule Take 1 capsule by mouth daily at bedtime. Nebulizer and Compressor For Neb 1 Each four times daily as needed. albuterol (PROVENTIL) 2.5 mg /3 mL (0.083 %) nebulizer solution USE 1 VIAL IN NEBULIZER EVERY 4 HOURS NEEDED FOR WHEEZING FOR 30 DAYS carvedilol (COREG) 3.125 mg tablet TAKE 1 TABLET BY MOUTH TWICE DAILY WITH MEALS FOR 30 DAYS furosemide (LASIX) 20 mg tablet Take 4 tablets by mouth once daily. (Patient taking differently: Take 40 mg by mouth once daily. Two tabs daily) dapagliflozin (FARXIGA) 10 mg tablet Take 1 tablet by mouth daily with breakfast. Please apply 1 time free voucher: RxBin: [id number] PCN: [id number] Group: [id number] ID:[id number] dulaglutide (TRULICITY) 3 mg/0.5 mL pen injector Inject 3 mg subcutaneously one time a week. flash glucose scanning reader ([employer] FILI 2 READER) Use to check blood sugar at least four (4) times daily. rOPINIRole (REQUIP) 0.5 mg tablet Take 2 tablets by mouth daily at bedtime. Insulin Syringe-Needle U-100 (BD ULTRAFINE INSULIN) 1 mL 31 gauge x 5/16 1 Each five times daily. latanoprost (XALATAN) 0.005 % ophthalmic solution Use 1 Drop in both eyes three times daily. BIPAP Initiate BiPAP @ 24/18 cm of water with humidification. Mask (per patient preference), chin strap, filters, tubing / heated tubing, heated humidity and lifetime supplies. Dx. JESSICA G47.33 327.32 - fax compliance download to [phone] isosorbide mononitrate ER (IMDUR) 30 mg 24 hr tablet Take 60 mg by mouth once daily. blood sugar diagnostic ([employer] BLOOD GLUCOSE SYSTEM) test strip Use as instructed to check blood sugar 3 to 4 times daily DM: yes Insulin: yes DX:11.[address] (PROTONIX) 40 mg tablet Take 40 mg by mouth once daily. Lancets (ONE TOUCH ULTRASOFT LANCETS) lancets Use with CeDe Groupuch Glucometer as directed CRESTOR 40 MG TAB Take one(1) tablet daily. NITROGLYCERIN 0.3 MG SUBLINGUAL TAB Dissolve 0.4 mg under the tongue. Usual dose for angina is 1 tablet every 5 minutes for maximum of 3 doses in 15 minutes. No current facility-administered medications for this visit. Allergies: Morphine and Rocephin [Ceftriaxone Sodium] Yaya Ibarra MD documented in this encounter [facility] 07-17-2022 Miscellaneous Notes TC to [place] and gave verbal order. Instructions understood. Ila Alamnza LPN OK for verbal order for visit frequency order: beginning 04-27-23: 2 x week for 3 weeks, and beginning --23: 1 x week for 4 weeks, as requested Trev Patino MD Joana- [place]- reports she is going through charts and requesting verbal order for late entry - visit frequency order: beginning 04-27-23: 2 x week for 3 weeks, and beginning 2--23: 1 x week for 4 weeks. Please phone Joana with vo. documented in this encounter [facility] documented in this encounter [facility]04-19-2023 Miscellaneous Notes* Telephone Encounter - Shereen Holt APRN.CNP - 07/16/2022 5:23 PM EDT Called Mamie at [facility], no answer, left message on confidential line giving verbal order for nurse visit for a wound check. Shereen Holt APRN.CNP * Telephone Encounter - Kaitlin King LPN - 07/16/2022 10:57 AM EDT Mamie from [facility] calling requesting verbal order for one more skilled nurse visit to check patient wounds. Plan is to discharge patient after that if wounds are healed. [facility] History of Present illness Narrative* Cholo Thorpe, [facility] - 07/11/2022 11:30 AM EDT Primary Care Pharmacy Visit CC (Reason for Consult): DM Goal: A1c<7 Last Collaborating Physician Visit: 06/20/22 Lovely Devi is a 76 year old male presenting for follow up visit by telephone. Patient consents to pharmacy collaborative practice agreement. . At last visit with PCP on 06/20/22 the following changes were made: blood work was ordered HPI: Has adequate supply of all insulins and sensors Since being back on insulin regimen BG readings improving This morning fasting BG was 140 mg/dL Injecting 21 units of Humalog before meals,typically 2-3 times per day Since readings are improving with n, is having some lows occurring Feeling sick after meal times, on occasion has vomiting Completed labwork today, A1c in progress GLYCEMIC CONTROL: SMBG's: Summary of CGM Findings: (last 7 days) 1- CGM recording is adequate for interpretation 2- Average glucose is 139 mg/dL. 3- Total frequency of hypoglycemia: 9 % 4- Nocturnal hypoglycemia was noted. 5- Hyperglycemic episodes: 11 % 6- Time in target range (70-180 mg/dL): 80 % 7- Low glucose events - last 7 days had 6 events -(12-6am -1, 6am-12pm0, 12-6pm-2- 6pm-12am-3) ROS: As above. Patient denies CP, SOB, FAITH, blurred vision, dizziness or lightheadedness Patient reports nausea, vomiting, diarrhea, abdominal pain Patient reports symptoms of hypoglycemia (sweating, anxiety, palpitations, hunger, and tremor) Patient denies symptoms of hyperglycemia (polyuria, polydipsia, polyphagia) Patient denies potential medication adverse effects Past medical, family and social history reviewed and updated. MEDICATIONS: Adherence: denies missed doses ALLERGIES Allergen Reactions Morphine Rocephin [Ceftriaxo* Other: See Comments Hot flashes; redness to skin Current Outpatient Medications Medication Sig Dispense Refill ondansetron orally disintegrating (ZOFRAN ODT) 4 mg disintegrating tablet Take 1 tablet by mouth every 6 hours as needed for nausea/vomiting. 10 tablet 2 gabapentin (NEURONTIN) 300 mg capsule Take 3 capsules by mouth three times daily for 90 days. 270 capsule 2 insulin lispro (HUMALOG KWIKPEN INSULIN) 100 unit/mL Inject 23 Units subcutaneously three times daily before meals. Plus sliding scale as directed ( 1 unit for every 50 mg/dL above 150 mg/dL) 21 Each1 warfarin (COUMADIN) 3 mg tablet 3 mg every Mon, Wed, Fri; 6 mg all other days 90 tablet 3 torsemide (DEMADEX) 5 mg tablet Take 1 tablet by mouth once daily for 14 days. Take 30 minutes before taking lasix 14 tablet 0 nortriptyline (PAMELOR) 25 mg capsule Take 1 capsule by mouth daily at bedtime. 90 capsule 3 Nebulizer and Compressor For Neb 1 Each four times daily as needed. 1 Each 0 albuterol (PROVENTIL) 2.5 mg /3 mL (0.083 %) nebulizer solution USE 1 VIAL IN NEBULIZER EVERY 4 HOURS NEEDED FOR WHEEZING FOR 30 DAYS carvedilol (COREG) 3.125 mg tablet TAKE 1 TABLET BY MOUTH TWICE DAILY WITH MEALS FOR 30 DAYS furosemide (LASIX) 20 mg tablet Take 4 tablets by mouth once daily. (Patient taking differently: Take 40 mg by mouth once daily. Two tabs daily) insulin glargine (BASAGLAR KWIKPEN U-100 INSULIN) 100 unit/mL (3 mL) Inject 32 Units subcutaneouslyevery morning AND 30 Units daily at bedtime. Patient Assistance Medication. 60 mL 3 dapagliflozin (FARXIGA) 10 mg tablet Take 1 tablet by mouth daily with breakfast. Please apply 1 time free voucher: RxBin: [id number] PCN: [id number] Group: [id number] ID:[id number] dulaglutide (TRULICITY) 3 mg/0.5 mL pen injector Inject 3 mg subcutaneously one time a week. 6 mL 3 flash glucose scanning reader ([employer] FILI 2 READER) Use to check blood sugar at least four (4)times daily. 1 Each 0 rOPINIRole (REQUIP) 0.5 mg tablet Take 2 tablets by mouth daily at bedtime. 180 tablet 3 Insulin Syringe-Needle U-100 (BD ULTRAFINE INSULIN) 1 mL 31 gauge x 5/16 1 Each five times daily. 450 Each 3 latanoprost (XALATAN) 0.005 % ophthalmic solution Use 1 Drop in both eyes three times daily. BIPAP Initiate BiPAP @ 24/18 cm of water with humidification. Mask (per patient preference), chin strap, filters, tubing / heated tubing, heated humidity and lifetime supplies. Dx. JESSICA G47.33 327.23 - fax compliance download to [phone] 1 Device 0 isosorbide mononitrate ER (IMDUR) 30 mg 24 hr tablet Take 60 mg by mouth once daily. 0 blood sugar diagnostic ([employer] BLOOD GLUCOSE SYSTEM) test strip Use as instructed to check blood sugar 3 to 4 times daily DM: yes Insulin: yes DX:11.[address] (PROTONIX) 40 mg tablet Take 40 mg by mouth once daily. Lancets (ONE TOUCH ULTRASOFT LANCETS) lancets Use with [employer] Glucometer as directed 100 Each 3 CRESTOR 40 MG TAB Take one(1) tablet daily. 0 NITROGLYCERIN 0.3 MG SUBLINGUAL TAB Dissolve 0.4 mg under the tongue. Usual dose for angina is 1 tablet every 5 minutes for maximum of 3 doses in 15 minutes. 0 No current facility-administered medications for this visit. EXAM: Last 3 Encounter BP Readings: Date: BP: 06/20/2022 128/80 05/12/2022 134/80 05/05/2022 130/80 Wt: 123.3 kg (271 lb 14.4 oz) BMI: 41.34 kg/(m^2) LABS: reviewed Lab Results Component Value Date HBA1C 7.9 03/06/2022 HBA1C 7.8 11/19/2021 HBA1C 7.3 08/17/2021 HBA1C 7.2 05/01/2021 HBA1C 7.2 03/04/2021 HBA1C 6.9 10/23/2020 Glucose 299 05/27/2022 BUN 31 05/27/2022 Creatinine 1.27 05/27/2022 Sodium 137 05/27/2022 Potassium 4.2 05/27/2022 Chloride 100 05/27/2022 CO2 26 05/27/2022 Protein, Total 7.0 05/27/2022 Albumin 3.8 05/27/2022 Calcium 9.0 05/27/2022 Alkaline Phosphatase 103 05/27/2022 Bilirubin, Total 0.8 05/27/2022 AST 57 05/27/2022 ALT 38 05/27/2022 Lab Results Component Value Date CHOL 95 08/17/2021 CHOL 117 04/23/2020 LDL 26 08/17/2021 LDL 47 04/23/2020 HDL 31 08/17/2021 HDL 32 04/23/2020 TG 189 08/17/2021 TG 192 04/23/2020 Albumin/Creat Ratio (mg/g) Date Value 05/01/2021 Not calculated GFR (mL/MIN) Date Value 01/04/2020 54 eGFR- (no units) Date Value 02/19/2021 60 PHARMACOTHERAPY ASSESSMENT/PLAN: 1. Type 2 diabetes mellitus with diabetic neuropathy, with long-term current use of insulin ([facility]) -ICD9: 250.60, 357.2, V58.67, ICD10: E11.40, Z79.4 A1c goal < 7%; not at goal (last A1c 7.8%); SMBG improving on current regimen since securing insulin supply; reports s/sx hypoglycemia; denies s/sx hyperglycemia. Patient reports increased incidence of hypoglycemia occurring overnight. Today, will decrease basal insulin dose to prevent hypoglycemia risk. Renal function appropriate for continued use DECREASE Basaglar 28 units in the morning and 26 units in evening CONTINUE Trulicity 3 mg once weekly CONTINUE Humalog 21 units three times daily before meals + Sliding Scale (1 units for every 50 mg/dL above 150 mg/dL) CONTINUE Farxiga to 10 mg once daily Follow up: Pharmacy follow up on 08/08/22 Cholo Thorpe PharmD, BCACP Primary Care Clinical Pharmacist The majority of the pharmacy visit (> 50%) was spent counseling and/or coordinating care for thepatient. interaction: telephonic time was 20 minutes. [facility]04[facility]23 Miscellaneous Notes* Telephone Encounter - May Martinez Ma - 07/10/2022 8:47 AM EDT Forms re faxed to [facility]. documented in this encounterLicking [facility]04-13-2023 Miscellaneous Notes* Telephone Encounter - Jaun Hinson APRN.CNP - 07/10/2022 8:03 AM EDT The following approved medication requests have been transmitted electronically. Requested Prescriptions Pending Prescriptions Disp Refills ondansetron orally disintegrating (ZOFRAN ODT) 4 mg disintegrating tablet 10 tablet 2 Sig: Take 1 tablet by mouth every 6 hours as needed for nausea/vomiting. Jaun Hinson APRN.RODRIGUEZ * Telephone Encounter - Ila Almanza LPN - 07/09/2022 5:14 PM EDT Patient phones requesting refills as follows: Requested Prescriptions Pending Prescriptions Disp Refills ondansetron orally disintegrating (ZOFRAN ODT) 4 mg disintegrating tablet 10 tablet 2 Sig: Take 1 tablet by mouth every 6 hours as needed for nausea/vomiting. CALVIN-06/20/22 Labs-05/27/22 NOV-09/22/22 med filled 03/08/22 Please review and advise. Ila Almanza LPN documented in this encounterCleveland [phone] Miscellaneous Notes* Telephone Encounter - Day Richardson Ma - 07/08/2022 4:51 PM EDT Form completed and faxed back to information below. Day Richardson Ma * Telephone Encounter - Day Richardson Ma - 07/07/2022 5:39 PM EDT [facility]GM [facility] ([employer]) Form received via fax When form is completed, Fax form to [phone] Form has been forwarded to Physician Desk: Dr. Sukumar Rihcardson Ma documented in this encounterLicking [facility]04-07-2023 Miscellaneous Notes* Telephone Encounter - Cholo Thorpe RPh - 07/04/2022 3:50 PM EDT Patient received Fili 14 day sensors with last refill from [facility]. Would like to switch to Fili 2sensors. Called [facility] and spoke with field representative/health education while patient also on 3-way call. [facility] field representative/health education states that patient must mail back the Fili 14 day sensors in order to get Fili 2 sensors. Patient prefers to use up remaining Fili 14 day sensors and switch to Fili 2 sensors with next refill in August. Lead Customer Service Representative states that when patient needs the Fili 2 sensors, he must call [facility] and not request refill online because they need to manually switch it to the Fili 2 sensors. Patient verbalizedunderstanding. Lead Customer Service Representative will check records and ensure all Fili 2 orders are still active, if new orders areneeded, she will fax requested form. Cholo Thorpe, PharmD, BCACP Primary Care Clinical Pharmacist documented in this encounterLicking [facility] Hospital04-07-2023 Miscellaneous Notes* Telephone Encounter - May Martinez Ma - 07/04/2022 11:56 AM EDT Joana notified and voiced understanding. May Martinez Ma * Telephone Encounter - Trev Patino MD - 07/04/2022 11:50 AM EDT If his weight increases any more tomorrow then I would take an additional 40 mg of lasix tomorrow Trev Patino MD * Telephone Encounter - Eleanor Nobles RN - 07/04/2022 9:41 AM EDT Joana Ang with [facility] calls to give update on patient. Patient reports a 3 lb weight gain since yesterday with increased SOB from patient's baseline. Patient urinated only twice yesterday. Patient has taken his lasix 80 mg this morning. Joana is encouraging patient to push fluids. Pulse ox 97% on room air. Joana asking if provider has any further recommendations. Please review and advise, Eleanor Nobles RN documented in this encounterLicking [facility] Hospital04-06-2023 Miscellaneous Notes* Telephone Encounter - Day Richardson Ma - 07/03/2022 9:45 AM EDT Call to Mamie and notified her of message below from Provider, verbalized understanding. Day Richardson Ma * Telephone Encounter - Trev Patino MD - 07/03/2022 9:06 AM EDT OK to continue Home Care as requested Trev Patino MD * Telephone Encounter - Carolyn Sevilla LPN - 07/02/2022 11:[address] [facility] calling, they were planning to discharge patient this week however after assessing him today they are requesting an order to continue seeing him 1 time a week for 2 more weeks. Patientstill has complaiants of weakness, not sleeping, fot pain with 2+ edema, and on and off chest pain that is relieved with nitro. Please advise. documented in this encounterLicking [facility] Hospital03-24-2023 [facility] Miscellaneous Notes* Telephone Encounter - Trev Patino MD - 06/20/2022 4:17 PM EDT See other notes Trev Patino MD * Telephone Encounter - Jerilyn Manuel LPN - 04/28/2022 12:13 PM EST Pt calls to report that he gets humalog through patient assistance program with [facility]. Pt reports [facility] said they were going to send new application to pcp office for humalog. Pt is asking if office has received that yet and if it could be filled out. Please call pt on status of form/rx. Jerilyn Manuel LPN documented in this encounterLicking Memorial [facility] Miscellaneous Notes* Telephone Encounter - Trev Patino MD - 06/20/2022 4:17 PM EDT Done Trev Patino MD * Telephone Encounter - Day Richardson Ma - 06/12/2022 1:20 PM EDT Office received fax and routed to PCP. Once complete fax to information below. Route to Pharm once completed for FYI. Day Richardson Ma * Telephone Encounter - Cholo Thorpe RPh - 06/12/2022 1:12 PM EDT [facility] requesting page 5 for Humalog be resubmitted with new date and signature. Trulicity andBasaglar were already approved. Faxed page 5 to PCP office today at 1:08pm. Please sign and date form once received. Ok to fax back to [facility] at , once signed to help expedite order. Thanks! Cholo Thorpe RPh * Telephone Encounter - Cholo Thorpe RPh - 06/11/2022 4:46 PM EDT Called and spoke to field representative/health education at [facility]. She was able to confirm that fax from 05.22.22 was received, field representative/health education notes she is able to identify all information on the forms, is not sure why there is a delay. No communication was sent to office that there was a delay with this application. Asked to place me on hold while she escalated case for review to identify reason for delay. Placed on hold for 35 minutes. When field representative/health education wasback on the line, she reported that all information is on the form, but the date on the form is not clear as the background was highlighted which created a shadow on the fax. She asks that a new form be completed with all the same information, re-signed and dated again beforeit is refaxed. Forms were originally faxed to [facility] on 03/05/22, at that time Trulicity and Basaglar were approved but not Humalog. All forms were in the same packet and dated the same day. Attempted to provide verbal date (which is the same as dates of Trulicity and Basaglar orders) to help expedite order, they are not able to accept this. Will coordinate with PCP office to obtain a new form for faxing. Cholo Thorpe PharmD, BCACP Primary Care Clinical Pharmacist * Telephone Encounter - Cholo Thorpe RPh - 06/06/2022 4:08 PM EST Documentation was faxed to [facility] on 05.22.22. Attempted to reach [facility] with wait time greater than 1.5 hours. Unable to reach field representative/health education at [facility] today to clarify if they have received this fax. Patient notified via Advanced Voice Recognition System[employer]art. I will try again on Thursday. Cholo Thorpe PharmD, BCACP Primary Care Clinical Pharmacist * Telephone Encounter - Tasha Chan RN - 06/06/2022 12:40 PM EST Patient asking this message be sent to casey Emmanuel. Reports he spoke to [facility] today, andthey informed him they need more information on the humalog- said the form was missing information but patient doesn't know what. Please advise patient. Copied and pasted previous message/date below: May 22, 2022 Cholo Thorpe RPh KD 5:13 PM Note Called [facility] to check on status of Humalog approval. They have approved patient for Basaglar and Trulicity but need Humalog page refaxed. Page 5 of humalog orders found in scanned documents of [employer] and refaxed to [facility]. Cholo Thorpe PharmD, SHANIA Primary Care Clinical Pharmacist documented in this encounterLicking [facility] History of Present illness Narrative* Trev Patino MD - 06/20/2022 3:00 PM EDT Chief Complaint Patient presents with: Follow Up: 2 month f/u-CHF HPI Lovely Devi is a 76 year old male who presents here today for a 2 month follow up. Pt here today for a 2 month follow up. Pt has been seen twice since his last OV. No bowel, Gi, or urinary issues. Recently treated for UTI, sx improved. GERD: Stable with use of Protonix 40 mg daily. CHF: Pt follows with Dr. Perry, Cardiology and Dr. Ayala, Pulmonary with [facility]. Pt seen by Shereen Holt CNP on 05/12/22 for a same day appt due to weight gain and increased sob with ambulation. Pt has had chest pain intermittently for several months. Pt currently taking Lasix 80 mg once daily and Torsemide 5 mg once daily. This was started on 05/02 for 2 weeks. Pt after appt on 05/12/22 was advisedby Cardiology to take 160 mg x 3 days by Cardiology and to give update on his weight after 3 days. Pt also taking Coreg 3.125 mg bid. Uses his nebulizer 3 x per day. Checking O2 at home, readings around 94%, occ goes down to 92%. He states a nurse from the [facility] came out to his house and suggested heget on a maintenance inhaler. Reviewing Dr Ayala's recent note shows that Lovely had spirometry in 2020 that showed no obstruction. Pt states he has a lot of wheezing. Has SOB with laying down but nothing new or unusual for him. Denies much swelling in the feet or ankles. He is weighing himself daily. DM: Pt has CGM and checks sugars 4 x per day. FBS this morning was 156 but has been running 200-210. Denies any low blood sugars maybe 2-3 x a month, but admits to neuropathy symptoms. Pt receives Basaglar, Humalog and Trulicity through [facility]. Pt takes Farxiga, Basaglar 33 units bid, Humalog 23 units TID (plus sliding scale) and Trulicity 3 mg weekly. Pt follows with Podiatry and Opth. He is working with Cholo, Pharmacist. Last A1c 7.9 in Feb 2022 Afib: Managed by Pharmacy. Sleep difficulty: has been an issue for some time, states it is getting worse. He usually can't fall asleep till 2-3 AM. spoke with pharmacist who stated not to get anything over the counter as they didn't work. He thinks he is only getting about 6 hours of sleep when he finally falls asleep. He does not nap during the day much. He has JESSICA which he follows with Dr. Ayala for. Is on a BiPAP machine at night at 24/18 cm water. Is tired during the day. RLS: doing well with the Requip 0.5 mg, 2 pills once daily at bedtime. Past medical history, appointments, medications, allergies reviewed. Previous Medical History PAST MEDICAL HISTORY Diagnosis Date ASHD (arteriosclerotic heart disease) 02/19/2015 Atrial fibrillation (HCC) 07/03/2011 Automatic implantable cardiac defibrillator in situ Petit's esophagus with esophagitis 03/01/2015 Benign neoplasm of colon Chronic diarrhea 09/16/2011 Coronary atherosclerosis of unspecified type of vessel, makah or graft s/p [place] in 1985 Diverticulosis of colon (without mention of hemorrhage) Duodenitis without mention of hemorrhage Dysphagia 03/01/2015 Facet arthritis of lumbar region 07/14/2017 GERD (gastroesophageal reflux disease) 06/10/12 Heart attack (HCC) Labyrinthitis 02/05/2010 Neurocardiogenic syncope 03/01/2015 Obesity 09/16/2011 JESSICA treated with BiPAP DME [employer] Other and unspecified hyperlipidemia Other specified forms of chronic ischemic heart disease Paroxysmal ventricular tachycardia Snoring Stroke (HCC) Tinea of nail 01/13/2011 Type 2 diabetes mellitus with st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, with long-term current use of insulin(HCC) 06/15/2017 Unspecified essential hypertension Previous Surgical History PAST SURGICAL HISTORY Procedure Laterality Date COLONOSCOPY FLX DX W/COLLJ SPEC WHEN PFRMD 12/21/2017 Dr. Anthony-repeat 3 years-11/2020 COLONOSCOPY W/BIOPSY SINGLE/MULTIPLE 02/21/2009 ESOPHAGOGASTRODUODENOSCOPY TRANSORAL DIAGNOSTIC EGD ESOPHAGOGASTRODUODENOSCOPY TRANSORAL DIAGNOSTIC 02/16/2008 EGD inpt [facility] H-pylori negative ESOPHAGOGASTRODUODENOSCOPY TRANSORAL DIAGNOSTIC 05/24/2015 EGD ESOPHAGOGASTRODUODENOSCOPY TRANSORAL DIAGNOSTIC 12/21/2017 Dr. Anthony-repeat 3 years-11/2020 HEART CATHETERIZATION 12/15/2014 [facility] - see scanned documents HEART SURGERY HX 1 stent LEFT HEART CATH,PERCUTANEOUS Cardiac cath, L heart LEFT HEART CATH,PERCUTANEOUS 06/20/2011 Cardiac cath, L heart PAST SURGICAL HISTORY OF ICD/ pacemaker at [facility] PERC TRANSL COR ANGIO Percutaneous Transluminal Coronary Angio Status REMV CATARACT EXTRACAP,INSERT LENS Bilateral 2020 Right corrected in 2020 and left 2018. Family History FAMILY HISTORY Problem Relation Age of Onset Stroke Mother Heart Mother Cancer Father prostate Heart Father Breast Cancer Sister Breast Cancer Sister Diabetes Sister Diabetes Brother Diabetes Brother Patient Allergies ALLERGIES Allergen Reactions Morphine Rocephin [Ceftriaxo* Other: See Comments Hot flashes; redness to skin Current Medications Current Outpatient Medications on File Prior to Visit Medication Sig gabapentin (NEURONTIN) 300 mg capsule Take 3 capsules by mouth three times daily for 90 days. insulin lispro (HUMALOG KWIKPEN INSULIN) 100 unit/mL Inject 23 Units subcutaneously three times daily before meals. Plus sliding scale as directed ( 1 unit for every 50 mg/dL above 150 mg/dL) warfarin (COUMADIN) 3 mg tablet 3 mg every Mon, Wed, Fri; 6 mg all other days torsemide (DEMADEX) 5 mg tablet Take 1 tablet by mouth once daily for 14 days. Take 30 minutes before taking lasix nortriptyline (PAMELOR) 25 mg capsule Take 1 capsule by mouth daily at bedtime. Nebulizer and Compressor For Neb 1 Each four times daily as needed. albuterol (PROVENTIL) 2.5 mg /3 mL (0.083 %) nebulizer solution USE 1 VIAL IN NEBULIZER EVERY 4 HOURS NEEDED FOR WHEEZING FOR 30 DAYS carvedilol (COREG) 3.125 mg tablet TAKE 1 TABLET BY MOUTH TWICE DAILY WITH MEALS FOR 30 DAYS furosemide (LASIX) 20 mg tablet Take 4 tablets by mouth once daily. (Patient taking differently: Take 40 mg by mouth once daily. Two tabs daily) insulin glargine (BASAGLAR KWIKPEN U-100 INSULIN) 100 unit/mL (3 mL) Inject 32 Units subcutaneouslyevery morning AND 30 Units daily at bedtime. Patient Assistance Medication. dapagliflozin (FARXIGA) 10 mg tablet Take 1 tablet by mouth daily with breakfast. Please apply 1 time free voucher: RxBin: [id number] PCN: [id number] Group: [id number] ID:[id number] ondansetron orally disintegrating (ZOFRAN ODT) 4 mg disintegrating tablet Take 1 tablet by mouth every 6 hours as needed for nausea/vomiting. dulaglutide (TRULICITY) 3 mg/0.5 mL pen injector Inject 3 mg subcutaneously one time a week. flash glucose scanning reader (Consult A Doctor FILI 2 READER) Use to check blood sugar at least four (4)times daily. rOPINIRole (REQUIP) 0.5 mg tablet Take 2 tablets by mouth daily at bedtime. albuterol HFA (PROVENTIL HFA) 90 mcg/actuation inhaler Inhale 2 Puffs as instructed every 4 hours while awake. Insulin Syringe-Needle U-100 (BD ULTRAFINE INSULIN) 1 mL 31 gauge x 5/16 1 Each five times daily. latanoprost (XALATAN) 0.005 % ophthalmic solution Use 1 Drop in both eyes three times daily. BIPAP Initiate BiPAP @ 24/18 cm of water with humidification. Mask (per patient preference), chin strap, filters, tubing / heated tubing, heated humidity and lifetime supplies. Dx. JESSICA G47.33 327.23 - fax compliance download to [phone] isosorbide mononitrate ER (IMDUR) 30 mg 24 hr tablet Take 60 mg by mouth once daily. blood sugar diagnostic ([employer] BLOOD GLUCOSE SYSTEM) test strip Use as instructed to check blood sugar 3 to 4 times daily DM: yes Insulin: yes DX:11.[address] (PROTONIX) 40 mg tablet Take 40 mg by mouth once daily. Lancets (ONE TOUCH ULTRASOFT LANCETS) lancets Use with [employer] Glucometer as directed CRESTOR 40 MG TAB Take one(1) tablet daily. NITROGLYCERIN 0.3 MG SUBLINGUAL TAB Dissolve 0.4 mg under the tongue. Usual dose for angina is 1 tablet every 5 minutes for maximum of 3 doses in 15 minutes. No current facility-administered medications on file prior to visit. Social History Social History Tobacco Use Smoking status: Former Types: Cigars Quit date: 08/12/2007 Years since quittin.8 Smokeless tobacco: Never Tobacco comments: 2-3 per day Vaping Use Vaping Use: Never used Substance Use Topics Alcohol use: No Drug use: No EXAM: BP 128/80 Pulse 80 Resp 18 Wt 123.3 kg (271 lb 14.4 oz) BMI 41.34 kg/m General Appearance: Well appearing, alert, in no acute distress, well-hydrated, well nourished. andObese. Lungs: Lungs clear to auscultation. No wheezing, rhonchi, rales.. Heart: RRR without murmur, gallop, or rubs. No ectopy. Extremities: No deformities, edema, skin discoloration, clubbing or cyanosis. Good capillary refill. Zenon legs. Health Maintenance List SPIROMETRY Never done SHINGRIX VACCINE(1 of 2) Never done ADVANCE DIRECTIVE DISCUSSION Never done URINE ALBUMIN:CREATININE RATIO due on 05/01/2022 BP CONTROLLED (<130/80) due on 05/01/2022 DIABETIC FOOT EXAM due on 08/09/2022 LDL CHOLESTEROL due on 08/17/2022 DILATED RETINAL EXAM due on 08/19/2022 HBA1C due on 09/04/2022 ANNUAL PCP TEAM CHRONIC DISEASE VISIT due on 05/12/2023 SERUM CREATININE due on 05/27/2023 HEMOGLOBIN/HEMATOCRIT due on 05/27/2023 DTAP,TDAP,TD(3 - Td or Tdap) due on 10/17/2027 INFLUENZA Completed HEPATITIS C SCREENING Completed COVID-19 VACCINE Completed PNEUMOCOCCAL: 65+ Completed Data reviewed none ASSESSMENT/PLAN: 1. Type 2 diabetes mellitus with diabetic neuropathy, with long-term current use of insulin (HCC) -ICD9: 250.60, 357.2, V58.67, ICD10: E11.40, Z79.4 (primary diagnosis) - Controlled - Continue current medications 2. Restless leg syndrome - ICD9: 333.94, ICD10: G25.81 Stable Continue current medications. 3. Essential hypertension - ICD9: 401.9, ICD10: I10 - good control - Continue current medication(s) - Recommended regular aerobic exercise. - Recommend home blood pressure monitoring, to bring results in on next visit - Goal of BP <130/80 4. Paroxysmal atrial fibrillation (HCC) - ICD9: 427.31, ICD10: I48.0 Continue current medications. 5. ASHD (arteriosclerotic heart disease) - ICD9: 414.00, ICD10: I25.10 Continue current medications. Continue with Cardio 6. JESSICA (obstructive sleep apnea) - ICD9: 327.23, ICD10: G47.33 Continue with BiPAP and Dr. Ayala 7. Gastroesophageal reflux disease, unspecified whether esophagitis present - ICD9: 530.81, ICD10: K21.9 Controlled. Continue current medications. 8. Type 2 diabetes mellitus with stage 3a chronic kidney disease, with long-term current use of insulin (HCC) - ICD9: 250.40, 585.3, V58.67, ICD10: E11.22, N18.31, Z79.4 - Controlled - Continue current medications 9. Chronic combined systolic and diastolic congestive heart failure (HCC) - ICD9: 428.42, 428.0, ICD10: I50.42 Continue current medications. Continue with Cardio and Pulm 10. Sleeping difficulty - ICD9: 780.50, ICD10: G47.9 Continue to monitor Follow up in 3 months. Will do labs at end of June. I agree with the Chief Complaint, ROS, and Past Histories independently gathered by the clinical client application support specialist and the remaining scribed note accurately describes my personal service to the patient. Medical Decision Making: Problems: Moderate: 2+ stable chronic illnesses Data: Unique test(s) ordered: 3+ Risk: Moderate: Drug management Medical Decision Making Level: 4 - Moderate Trev Patino MD The documentation for this note was completed by May Martinez Ma acting as scribe for Trev Patino MD. June 20, 2022 3:08 PM. May Martinez Ma documented in this encounterLicking [facility] Hospital03-23-2023 Miscellaneous Notes* Telephone Encounter - Cholo Thorpe RPh - 06/19/2022 4:22 PM EDT Called to follow up with [facility] on Humalog status. The prescription is scheduled to shipon 06/23 for overnight shipping and will arrive on 06/24. Cholo Thorpe PharmD, CHINACP Primary Care Clinical Pharmacist * Telephone Encounter - Cholo Thorpe RPh - 06/19/2022 2:50 PM EDT Called and spoke with [employer] field representative/health education to check on status of Humalog forms that were refaxed last week. Lead Customer Service Representative states that forms were received and patient was approved by [employer] for Humalog on 06/16/22. [facility]. Cholo Thorpe PharmD, BCACP Primary Care Clinical Pharmacist documented in this encounterLicking Memorial Hospital03-23-2023 Evaluation note* Diagnosis Type 2 diabetes mellitus with stage 3a chronic kidney disease, with long-term current use of insulin (HCC) documented in this encounter [facility]03-17-[facility]23 Miscellaneous Notes* Telephone Encounter - Trev Patino MD - 06/13/2022 2:49 PM EDT Noted Trev Patino MD * Telephone Encounter - Cindi Eastman LPN - 06/13/2022 11:49 AM EDT [place] with [facility] calling with plan of care. They will see pt 1 tme a week for 4 weeks for disease prevention, education on medication. No call back needed. Cindi Eastman LPN documented in this encounterLicking Memorial Hospital03-10-2023 Miscellaneous Notes* Telephone Encounter - Ariana Freeman MA - 06/06/2022 2:50 PM EST Patient notified of results, verbalizes understanding of instructions. Ariana Freeman MA * Telephone Encounter - Shereen Holt APRN.CNP - 06/06/2022 2:23 PM EST Can you please call the patient and let him know that I reviewed his recent lab and urine test results. No blood was noted in the repeat urine. Mild improvement in kidney function. Anemia is still noted on his labs, after review in his chart I see that he has had anemia in the past with positive blood in the stool. I know there was concerns about completing a colonoscopy to do his current cardiac exacerbations. Review of labs are stable at this time and we can continue to monitor until a plan is developed for future colonoscopy. Please let me know if he has any questions. Thank you. Shereen Holt APRN.RODRIGUEZ documented in this encounterLicking Memorial Hospital03-08-2023 Miscellaneous Notes* Telephone Encounter - Kelsie Cerrato RPh - 06/04/2022 9:07 AM EST MyChart message sent for therapeutic INR. documented in this encounterLicking Memorial Hospital03-03-2023 [facility] NoteTr[facility]03-[facility]23 History of Present illness Narrative* Kalia Ambrocio RN - 05/30/2022 1:45 PM EST inSight CDM Escalation Follow Up Action/FYI: Contact made with patient: Left Message: My name is Kalia Ambrocio RN, from the [facility]. I am calling regarding your recent visit with our Virtual Provider. Sorry that I am not able to speak with you. If you have a problem that needs to addressed by your Physician, please contact your Primary Care Provider's office. - END OUTREACH * Kalia Ambrocio RN - 05/30/2022 12:10 PM EST inSight CDM Escalation Follow Up Action/FYI: Contact made with patient: Left Message: My name is Kalia Ambrocio RN, from the [facility]. I am calling regarding your recent visit with our Virtual Provider. Sorry that I am not able to speak with you. If you have a problem that needs to addressed by your Physician, please contact your Primary Care Provider's office. - END OUTREACH * Kalia Ambrocio RN - 05/30/2022 9:33 AM EST inSight CDM Escalation Follow Up Action/FYI: C? Able to use nebulizer and inhaler Contact made with patient: Left Message: My name is Kalia Ambrocio RN, from the [facility]. I am calling regarding your recent visit with our Virtual Provider. Sorry that I am not able to speak with you. If you have a problem that needs to addressed by your Physician, please contact your Primary Care Provider's office. - END OUTREACH documented in this encounterLicking Memorial Hospital03-03-2023 NoteTr[facility]03-02-2023 NoteTr[facility]03-02-2023 NoteTr[facility]03-02-2023 History of Present illness Narrative* Lula Monzon APRN.PUPPET MAKER - 05/29/2022 8:35 PM EST Virtualist Distance Health Note (CDM/TCM//CC HC/H@[facility] escalations) Lovely Mathew Shandra has consented to this telephone encounter. Persons Present: patient Triage source: Chronic Disease Management Contacted by phone, [email or web address], Slidelyo, Zoom, Doximity, other: phone visit, patient consents History of present illness: Hx of CHF and COPD Pt reports he feels increased SOB, FOURNIER, wheezing and Coughing over past 3 days. Pt went to ED on 05/23/22, given prednisone then and now on 4th day of it. Pt starting to cough up increased amts of yellow phlegm. Pulse ox presently at 96-98% on RA Denies fever, chest pain, abdominal pain, N/V/D, edema HAs appt with PCP in two weeks and Pulm in 1 week Last day of steroids was today and patient doesn't feel like they helped Hasn't been using inhaler or nebulizer CXR was unremarkable when went to ER Past medical history, past surgical history, family history and social history reviewed and updatedas indicated in EMR. REVIEW OF SYSTEMS: Review of Systems VITAL SIGNS: (if available) There were no vitals taken for this visit. Physical Exam (if video visit was performed) Physical Exam Assessment/Plan: ASSESSMENT/PLAN: 1. Cough, unspecified type - ICD9: 786.2, ICD10: R05.9 (primary diagnosis) 2. SOB (shortness of breath) - ICD9: 786.05, ICD10: R06.02 -Declines any further steroids as they didn't seem to help -Discussed using inhaler and nebulizer as ordered -Discussed red flag symptoms Disposition: Patient remains at home A total of 20 minutes was spent providing medical care using telemedicine. Signed in as Primary Virtualist, Secondary Virtualist, or [facility] Telehealth provider: Primary SIGNATURE: Lula Monzon APRN.CNP PATIENT NAME: Lovely Devi DATE: May 29, 2022 documented in this encounterLicking Memorial Hospital03-02-2023 NoteTr[facility]ull [facility]03-02-2023 History of Present illness Narrative* Lacy Murillo RN - 05/29/2022 7:45 PM EST INSIGHT CDM ESCALATION Provider Action/FYI: Routing to Virtualist for SOB. Contact made with pt for CDM escalation. Pt reports he feels increased SOB, FOURNIER, wheezing and Coughing over past 3 days. Pt went to ED on 05/23/22, given prednisone then and now on 4th day of it. Pt starting to cough up increased amts of yellow phlegm. Pulse ox presently at 96-98% on RA Pt able to speak in full sentences during phone call. Pt prefers phone call at [phone]. Advised Virtualist, pt agrees to proceed and will be by phone. Message received via: InSight - Yes contact made with patient ACTION TAKEN: Based on director of estate, the following disposition is advised: Urgent / SAME DAY visit: Page Virtualist at and indicate 'CDM patient', MRN, Patient Name, Patient Concern, and patient's preferred method of contact (telephone, FaceTime, Google Duo), your name, your contact number. Informed patient that you recommend further assessment from a provider to review symptoms. I have sent a page for the provider to contact you today. If you haven't heard from that provider and still have concerns, please contact you PCP's office right away. Indicated CDM patient and symptoms in the FYI box and sent alpha page to Virtualist to to contact the patient.Route as 'high priority' to Virtualist nuclear weapons mechanical specialist - End outreach. * Lacy Murillo RN - 05/29/2022 5:49 PM EST INSIGHT CDM ESCALATION FYI: Attempt made to contact pt for CDM Escalation. Unable to contact, Lm on . message sent [facility] Home Monitoring Week2 Week4 Question 05/29/2022 5:11 PM EST - Filed by Patient Do you have new or worse shortness of breath with activity? No Do you have new or worsening swelling of legs, feet or ankles? No Do you have new or worsening trouble breathing while lying flat? No Do you feel like you are dehydrated for any reason, including not being able to eat or drink normally, or having less urine/much darker urine than normal for you? No Do you have new or worsening cough? No Do you have new or worsening wheezing? No Do you need to use your rescue (Albuterol) inhaler or nebulizer more often than normal? Yes Do you check your blood pressure at home? Yes Have your blood pressure readings been At your goal Do you check your daily weight at home? Yes Have you noticed a sudden gain in weight greater than 3 pounds in 1 day, or 3 pounds in 1 week? No Message received via: [employer] [place] - No contact made with patient Left Message for PatientBinta Merritt my name is Lacy Murillo RN from the [facility]. I am calling about your responses to our [facility] Monitoring questionnaire. Sorry I am not able to speak with you. If you have a problem that needs to be addressed by your physician please contact your PCP office--End Outreach documented in this encounterLicking [facility] Hospital03-02-2023 Miscellaneous Notes* Telephone Encounter - May Martinez Ma - 05/29/2022 9:51 AM EST Violetta notified and voiced understanding. May Martinez Ma * Telephone Encounter - Trev Patino MD - 05/29/2022 8:59 AM EST OK for a verbal order for longterm services to extend for 1 wk 2 for CHF monitoring and education Trev Patino MD * Telephone Encounter - Eleanor Nobles RN - 05/28/2022 12:29 PM EST Violetta calls to request a verbal order for longterm services to extend for 1 wk 2 for CHF monitoring and education. Please call Violetta at [phone] with verbal order if provider agrees. Please review and advise, Eleanor Nobles RN documented in this encounterLicking [facility] Hospital02-27-2023 Miscellaneous Notes* Telephone Encounter - Day Richardson Ma - 05/26/2022 1:29 PM EST Call to Joana and notified her of message below from Provider. Verbalized understanding. Day Richardson Ma * Telephone Encounter - Trev Patino MD - 05/26/2022 12:40 PM EST OK for verbal orders to go back out this week to evaluate pt for HH as requested Trev Patino MD * Telephone Encounter - Cindi Eastman LPN - 05/26/2022 12:19 PM EST Joana with [facility] HH nursing went out to evaluate pt on Thursday05-23-22 and had to send pt to the ER. They are calling for verbal orders to go back out this week to evaluate pt for HH Please call Joanawith verbal orders and okay to leave a detailed message on phone. Cindi Eastman LPN documented in this encounterLicking Memorial Hospital02-27-2023 Miscellaneous Notes* Telephone Encounter - Jaun Hinson APRN.RODRIGUEZ - 05/26/2022 7:11 AM EST The following approved medication requests have been transmitted electronically. Requested Prescriptions Pending Prescriptions Disp Refills gabapentin (NEURONTIN) 300 mg capsule 270 capsule 2 Sig: Take 3 capsules by mouth three times daily for 90 days. Jaun Hinson APRN.RODRIGUEZ * Telephone Encounter - Ronen Avery LPN - 05/24/2022 11:37 AM EST Patient phones requesting refills as follows: Requested Prescriptions Pending Prescriptions Disp Refills gabapentin (NEURONTIN) 300 mg capsule 270 capsule 2 Sig: Take 3 capsules by mouth three times daily for 90 days. CALVIN 05/12/22 NOV 06/20/22 Please review and advise. Ronen Avery LPN documented in this encounterLicking Memorial Hospital02-23-2023 Miscellaneous Notes* Telephone Encounter - Cholo Thorpe RPh - 05/22/2022 5:22 PM EST See encounters from 05/22/22 with patient and [facility] program. Cholo Thorpe PharmD, CHINACP Primary Care Clinical Pharmacist documented in this encounterLicking Memorial Hospital02-23-2023 Miscellaneous Notes* Telephone Encounter - Cholo Thorpe RPh - 05/22/2022 5:10 PM EST Called [facility] to check on status of Humalog approval. They have approved patient for Basaglar and Trulicity but need Humalog page refaxed. Page 5 of humalog orders found in scanned documents of [facility] and refaxed to [facility]. Cholo Thorpe PharmD, BCACP Primary Care Clinical Pharmacist documented in this encounterLicking Memorial Hospital02-23-2023 Miscellaneous Notes* Telephone Encounter - May Martinez Ma - 05/22/2022 3:52 PM EST [facility] Pharmacist notified and voiced understanding. May Martinez Ma * Telephone Encounter - Trev Patino MD - 05/22/2022 3:48 PM EST Maximum daily dose 90 units of Humalog Trev Patino MD * Telephone Encounter - Kaitlin King LPN - 05/22/2022 3:42 PM EST [facility]oned [facility] and spoke to Mariluz and she said she needs maximum daily dose please. He takes 23 units three times daily and sliding scale amount also. Please advise * Telephone Encounter - Day Richardson Ma - 05/22/2022 11:27 AM EST Call to Pharmacy and was placed on hold for 12 minutes. Will attempt to contact Pharmacy again at alater time. If call is returned, please notify them of Provider message below. Day Richardson Ma * Telephone Encounter - Trev Patino MD - 05/22/2022 11:11 AM EST Max dose of Humalog is 30 units Trev Patino MD * Telephone Encounter - Magy Gonzalez RN - 05/22/2022 10:30 AM EST Pharmacist from [facility] calls and wants clarification on Humalog order that was sent to pharmacy. Asking provider what is the maximum dose of Humalog that should be given? Pharmacist unsure about sliding scale. Please review and advise, Magy Gonzalez, RN documented in this encounterLicking Memorial Hospital02-23-2023 Miscellaneous Notes* Telephone Encounter - Jaun Hinson APRN.RODRIGUEZ - 05/22/2022 7:42 AM EST The following approved medication requests have been transmitted electronically. Requested Prescriptions Pending Prescriptions Disp Refills insulin lispro (HUMALOG KWIKPEN INSULIN) 100 unit/mL 21 Each 1 Sig: Inject 23 Units subcutaneously three times daily before meals. Plus sliding scale as directed ( 1 unit for every 50 mg/dL above 150 mg/dL) Jaun Hinson APRN.RODRIGUEZ * Telephone Encounter - Ila Almanza LPN - 05/21/2022 6:09 PM EST Patient phones requesting refills as follows: Requested Prescriptions Pending Prescriptions Disp Refills insulin lispro (HUMALOG KWIKPEN INSULIN) 100 unit/mL Sig: Inject 23 Units subcutaneously three times daily before meals. Plus sliding scale as directed ( 1 unit for every 50 mg/dL above 150 mg/dL) CALVIN-05/12/22 Labs-05/07/22 NOV-06/20/22 med filled 11/29/21 Please review and advise. Ila Almanza LPN documented in this encounterLicking Memorial Hospital02-22-2023 Miscellaneous Notes* Telephone Encounter - Nerissa Soriano RP - 05/21/2022 2:15 PM EST [facility] Anticoagulation Episode Summary Anticoagulation Care Providers Provider Role Specialty Phone number Trev Patino MD Referring Family Medicine [phone] Lovely Devi is a 76 year old year old male patient being evaluated today for a Telemanagement visit. Patient is currently on the following anticoagulant(s) Warfarin. Labs PT INR (no units) Date Value 07/03/2021 2.7 (biotel) 06/19/2021 2.6 (biotel) 06/05/2021 3.3 (biotel) INR Home CoaguChek (no units) Date Value 05/21/2022 2.5 05/07/2022 2.6 04/29/2022 2.3 Hemoglobin (g/dL) Date Value 02/19/2021 11.3 Hematocrit (%) Date Value 02/19/2021 37.1 Platelet Count (k/uL) Date Value 02/19/2021 163 Creatinine (mg/dL) Date Value 03/06/2022 1.50 02/19/2021 1.40 09/21/2020 1.74 09/14/2020 1.82 Bilirubin, Total (mg/dL) Date Value 02/19/2021 0.4 ALT (U/L) Date Value 02/19/2021 46 AST (U/L) Date Value 02/19/2021 41 Estimated Creatinine Clearance: 53 mL/min (A) (based on SCr of 1.5 mg/dL (H)). ALLERGIES Allergen Reactions Morphine Rocephin [Ceftriaxo* Other: See Comments Hot flashes; redness to skin Indication for Warfarin: Paroxysmal atrial fibrillation (hcc) Anticoagulated on coumadin Anticoagulation Episode Summary Current INR goal: 2.0-3.0 Assessment: INR result of 2.5 is therapeutic Plan: Current Warfarin Dosing As of 05/20/2022 Full warfarin instructions: 3 mg every Mon, Wed, Fri; 6 mg all other days Sent [employer] message Advised patient to continue current weekly dose as noted above Next home INR check scheduled on 06/04/2022 Patient verbalizes understanding of the plan. Patient denies need for refills. Nerissa Soriano RPh Clinical Pharmacist, Pharmacy Anticoagulation Clinic Pharmacy Anticoagulation Clinic Pager: [phone]. * Telephone Encounter - Varsha Moss RPh - 05/20/2022 11:14 AM EST Patient due to test INR today. Will continue to monitor for results. Varsha Moss RPh documented in this encounterLicking [facility] Hospital02-15-2023 NoteTr[facility]02-[facility]-2023 History of Present illness Narrative* Kalia Ambrocio RN - 05/14/2022 4:11 PM EST PRIMARY CARE COORDINATION QUICK NOTE Provider Action/FYI Kulwinder Motta, I appreciate you following up. We were able to get in touch with the patient and cardiology. He will be increasing his Lasix 160 mg daily for 3 days and weight check on Thursday. If you have any questions just let me know. Take care. Shereen Holt, SHANELLE.PUPPET MAKER Patient identified by name and date . * Kalia Ambrocio RN - 05/14/2022 1:21 PM EST [facility] CDM Escalation Follow Up Action/FYI: Reports wt today 269# Dry wt 265# Breathing remains the same, not worsening Adherence to fluid restriction per pt and mindful of sodium Diarrhea has subsided. Reached out to Cardioloigst Dr. Sinclair this am and LVM- has not heard back from office as of time ofcall. Encouraged to call back in am if no response by end of day. Contact made with patient: Patient identified by name and Discussed care with patient Patient Escalated to Virtualist on: 05/12/2022 Reason for Escalation: wt gain Virtualist Intervention: Same day visit with PCP -not in urgent dispatch service area Disposition: Patient stable no further interventions * Kalia Ambrocio RN - 05/13/2022 1:03 PM EST [facility] CDM Escalation Follow Up Action/FYI: Patient contacted today by office as well to follow up. Seen by PCP same day for evaluation per virtualist request as patient not in dispatch service area. Contact made with patient: Left Message: My name is Kalia Ambrocio RN, from the [facility]. I am calling regarding your recent visit with our Virtual Provider. Sorry that I am not able to speak with you. If you have a problem that needs to addressed by your Physician, please contact your Primary Care Provider's office. - END OUTREACH documented in this encounterLicking [facility] Hospital02-15-2023 NoteTr[facility]02-14-2023 NoteTr[facility]ull [facility]02-14-2023 Miscellaneous Notes * Telephone Encounter - Shereen Holt APRN.CNP - 05/13/2022 10:37 AM EST I called the patient to check on weight. Weight has stayed the same 267. Refers that he had an episode of chest pain last night, took 1 nitro which resolved the pain. refers he does not want to go to ER. Instructed to go to the ER if chest pain returns or increased weight. Patient and verbalized understanding. I will call the patient tomorrow for follow-up. All questions answered. Shereen Holt APRN.RODRIGUEZ documented in this encounterLicking Memorial Hospital02-14-2023 Miscellaneous Notes* Telephone Encounter - Jaun Hinson APRN.CNP - 05/13/2022 9:50 AM EST Patient evaluated and treated in office yesterday 05/12/2022. Jaun Hinson APRN.RODRIGUEZ * Telephone Encounter - Magy Gonzalez RN - 05/12/2022 10:26 AM EST Alexandria from [facility] calls and states that patient has had a 4 pound weight gain in 1 day. Yesterday patient weighted 263, today patient weighs 267. Patient continues to be having +1 pitting edema to bilateral lower extremities. Patient's blood pressure was 140/80. Alexandria states that lung sounds are good. P atient's abdomen is rounded. Patient has been short of breath and it has not gotten any better. Patient has had diarrhea since Thursday. Patient has been on antibiotic since 05/05/2022. Please review and advise, Magy Gonzalez, RN documented in this encounterLicking [facility] Hospital02-13-2023 NoteTrumbull Regional [facility] Center02-13-2023 Instructions* Patient Instructions* Shereen Holt APRN.CNP - 05/12/2022 3:02 PM EST Continue to take all medication as prescribed. Recommend checking blood pressure 1 hour or later after taking blood pressure medication. Continue with water restriction. Continue to take daily weights in the morning. Red flag symptoms go to ER. Office note will be sent to Dr. Perry's office. I will call you midmorning tomorrow to check in May add on probiotic at night time to help with diarrhea. If this continues after antibiotic use may need stool sample. documented in this encounterLicking Memorial Hospital02-13-2023 History of Present illness Narrative* Shereen Holt APRN.CNP - 05/12/2022 2:40 PM EST Chief Complaint Patient presents with: Acute Visit: weight gain and SOB HPI Lovely Devi is a 76 year old male who presents here today for a same day visit. Pt scheduled for a same day visit for follow up, weight gain. Today's weight, gained 4 lbs In 24 hours. Increased SOB with ambulating. Diarrhea/Nausea started last Thursday, about 6-7 times per day.Stool is very smelly. Is currently on Macrobid for urinary symptoms, 2 days left antibiotic. Refersthat urinary symptoms have improved with antibiotic use.. Chest pain intermittent for several months. Has been using nebulizer (albuterol) every 4 hours which is helpful with breathing. Will be having cardiology follow up in May, (Dr. Perry, [facility]). Last Echo: February 2022, Dr. Perry: Showed right atrium mildly enlarged and mild tricuspid insufficiency. Ejection fraction 55%. Office received call from [facility] today noting that pt's had a 4 lb weight gain in 1 day. Yesterday pt weighed 263 lbs, today is 267 lbs. He has +1 pitting edema to b/l lower legs. BP was 140/80. HH said his lungs sounded good, but his abdomen is rounded. Has been sob and not improved. He's had diarrhea since Thursday and on an abx since 05/05/22. Pt was in and seen Shereen Holt CNP on 05/05/22 for dysuria. He was started on Macrobid twice daily for 7 days. He's to repeat sample in 2 weeks. Pt completed VV today with Cardiology, see notes below. ASSESSMENT/PLAN: 1. Chronic combined systolic and diastolic congestive heart failure (HCC) - ICD9: 428.42, 428.0, ICD10: I50.42 (primary diagnosis) 2. Weight gain - ICD9: 783.1, ICD10: R63.5 - Hx of T2DM, HTN, AICD, Afib, HLD, ASHD, CHF, JESSICA, CKD, COPD, Obesity - Weight today 273lbs, yesterday 269lbs, dry weight reported at 265lbs - Pt prescribed additional 5mg torsemide to take 30 min prior to normal lasix dose by PCP on 05/02, once daily for 14 days, reports he only has one pill left - Takes 80mg lasix once daily - Crea 1.56 on 05/07 from outside facility - Pt reporting increased SOB, mild cough, symptoms - Pt denies peripheral edema, denies fevers or chills, denies chest pain or pain with deep breathes - He reports his SpO2 at this time to be 97%, he states he checks regularly and it has been anywhere between 85-98% within the past week, states he does not check when laying down or after exertinghimself, does not wear oxygen - Denies dizziness or lightheadedness - Reports adherence to fluid restriction, tries to adhere to sodium restriction does admit to eating canned soup recently j - Patient able to speak in clear and complete sentences over the phone without sounding in any distress, no audible wheezing or grunting - Pt unfortunately out of territory for urgent dispatch, do not feel patient needs immediate ED referral at this time but does need to be seen by a provider ideally within the next 48 hours, will route to CDM RN and PCP to see if able to schedule appt with provider early this week, pt agreeable to plan - Red flag symptoms and when to seek emergency care discussed, patient verbalized understanding Axel Zunigadorcasmedina Past medical history, appointments, medications, allergies reviewed. Previous Medical History PAST MEDICAL HISTORY Diagnosis Date ASHD (arteriosclerotic heart disease) 02/19/2015 Atrial fibrillation (HCC) 07/03/2011 Automatic implantable cardiac defibrillator in situ Petit's esophagus with esophagitis 03/01/2015 Benign neoplasm of colon Chronic diarrhea 09/16/2011 Coronary atherosclerosis of unspecified type of vessel, makah or graft s/p [place] in 1985 Diverticulosis of colon (without mention of hemorrhage) Duodenitis without mention of hemorrhage Dysphagia 03/01/2015 Facet arthritis of lumbar region 07/14/2017 GERD (gastroesophageal reflux disease) 06/10/12 Heart attack (HCC) Labyrinthitis 02/05/2010 Neurocardiogenic syncope 03/01/2015 Obesity 09/16/2011 JESSICA treated with BiPAP DME [employer] Other and unspecified hyperlipidemia Other specified forms of chronic ischemic heart disease Paroxysmal ventricular tachycardia Snoring Stroke (HCC) Tinea of nail 01/13/2011 Type 2 diabetes mellitus with st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, with long-term current use of insulin(HCC) 06/15/2017 Unspecified essential hypertension Previous Surgical History PAST SURGICAL HISTORY Procedure Laterality Date COLONOSCOPY FLX DX W/COLLJ SPEC WHEN PFRMD 12/21/2017 Dr. Anthony-repeat 3 years-11/2020 COLONOSCOPY W/BIOPSY SINGLE/MULTIPLE 02/21/2009 ESOPHAGOGASTRODUODENOSCOPY TRANSORAL DIAGNOSTIC EGD ESOPHAGOGASTRODUODENOSCOPY TRANSORAL DI[facility]NOSTIC [facility]OPHAGOGASTRODUODENOSCOPY TRANSORAL DIAGNOSTIC 05/24/2015 EGD ESOPHAGOGASTRODUODENOSCOPY TRANSORAL DIAGNOSTIC 12/21/2017 Dr. Anthony-repeat 3 years-11/2020 HEART CATHETERIZATION 12/15/2014 [facility] - see scanned documents HEART SURGERY HX 1 stent LEFT HEART CATH,PERCUTANEOUS Cardiac cath, L heart LEFT HEART CATH,PERCUTANEOUS 06/20/2011 Cardiac cath, L heart PAST SURGICAL HISTORY OF ICD/ pacemaker at [facility] PERC TRANSL COR ANGIO Percutaneous Transluminal Coronary Angio Status REMV CATARACT EXTRACAP,INSERT LENS Bilateral 2020 Right corrected in 2020 and left 2018. Family History FAMILY HISTORY Problem Relation Age of Onset Stroke Mother Heart Mother Cancer Father prostate Heart Father Breast Cancer Sister Breast Cancer Sister Diabetes Sister Diabetes Brother Diabetes Brother Patient Allergies ALLERGIES Allergen Reactions Morphine Rocephin [Ceftriaxo* Other: See Comments Hot flashes; redness to skin Current Medications Current Outpatient Medications on File Prior to Visit Medication Sig nitrofurantoin monohydrate and macrocrystal (MACROBID) 100 mg capsule Take 1 capsule by mouth twicedaily with meals for 7 days. torsemide (DEMADEX) 5 mg tablet Take 1 tablet by mouth once daily for 14 days. Take 30 minutes before taking lasix nortriptyline (PAMELOR) 25 mg capsule Take 1 capsule by mouth daily at bedtime. Nebulizer and Compressor For Neb 1 Each four times daily as needed. albuterol (PROVENTIL) 2.5 mg /3 mL (0.083 %) nebulizer solution USE 1 VIAL IN NEBULIZER EVERY 4 HOURS NEEDED FOR WHEEZING FOR 30 DAYS carvedilol (COREG) 3.125 mg tablet TAKE 1 TABLET BY MOUTH TWICE DAILY WITH MEALS FOR 30 DAYS furosemide (LASIX) 20 mg tablet Take 4 tablets by mouth once daily. insulin glargine (BASAGLAR KWIKPEN U-100 INSULIN) 100 unit/mL (3 mL) Inject 32 Units subcutaneouslyevery morning AND 30 Units daily at bedtime. Patient Assistance Medication. dapagliflozin (FARXIGA) 10 mg tablet Take 1 tablet by mouth daily with breakfast. Please apply 1 time free voucher: RxBin: [id number] PCN: [id number] Group: [id number] ID:[id number] ondansetron orally disintegrating (ZOFRAN ODT) 4 mg disintegrating tablet Take 1 tablet by mouth every 6 hours as needed for nausea/vomiting. insulin lispro (HUMALOG KWIKPEN INSULIN) 100 unit/mL Inject 23 Units subcutaneously three times daily before meals. Plus sliding scale as directed ( 1 unit for every 50 mg/dL above 150 mg/dL) gabapentin (NEURONTIN) 300 mg capsule Take 3 capsules by mouth three times daily for 90 days. dulaglutide (TRULICITY) 3 mg/0.5 mL pen injector Inject 3 mg subcutaneously one time a week. flash glucose scanning reader (Consult A Doctor FILI 2 READER) Use to check blood sugar at least four (4)times daily. warfarin (COUMADIN) 3 mg tablet 3 mg every Mon, Wed, Fri; 6 mg all other days rOPINIRole (REQUIP) 0.5 mg tablet Take 2 tablets by mouth daily at bedtime. albuterol HFA (PROVENTIL HFA) 90 mcg/actuation inhaler Inhale 2 Puffs as instructed every 4 hours while awake. Insulin Syringe-Needle U-100 (BD ULTRAFINE INSULIN) 1 mL 31 gauge x 5/16 1 Each five times daily. latanoprost (XALATAN) 0.005 % ophthalmic solution Use 1 Drop in both eyes three times daily. BIPAP Initiate BiPAP @ 24/18 cm of water with humidification. Mask (per patient preference), chin strap, filters, tubing / heated tubing, heated humidity and lifetime supplies. Dx. JESSICA G47.33 327.23 - fax compliance download to [phone] isosorbide mononitrate ER (IMDUR) 30 mg 24 hr tablet Take 60 mg by mouth once daily. blood sugar diagnostic ([employer] BLOOD GLUCOSE SYSTEM) test strip Use as instructed to check blood sugar 3 to 4 times daily DM: yes Insulin: yes DX:11.[address] (PROTONIX) 40 mg tablet Take 40 mg by mouth once daily. Lancets (ONE TOUCH ULTRASOFT LANCETS) lancets Use with CeDe Groupuch Glucometer as directed CRESTOR 40 MG TAB Take one(1) tablet daily. NITROGLYCERIN 0.3 MG SUBLINGUAL TAB Dissolve 0.4 mg under the tongue. Usual dose for angina is 1 tablet every 5 minutes for maximum of 3 doses in 15 minutes. No current facility-administered medications on file prior to visit. Social History Social History Tobacco Use Smoking status: Former Types: Cigars Quit date: 08/12/2007 Years since quittin.7 Smokeless tobacco: Never Tobacco comments: 2-3 per day Vaping Use Vaping Use: Never used Substance Use Topics Alcohol use: No Drug use: No EXAM: BP 134/80 Pulse 85 Resp 20 Wt 121.1 kg (267 lb) SpO2 98% BMI 40.60 kg/m General Appearance: Well appearing, alert, in no acute distress, well-hydrated, well nourished. Skin: Skin color, texture, turgor normal, no suspicious rashes or lesions. Head: Normocephalic, no masses, lesions, tenderness or abnormalities. Eyes: Anicteric sclera. Extraocular movements are intact. Lungs: Lungs clear to auscultation. No wheezing, rhonchi, rales. Heart: RRR without murmur, gallop, or rubs. No ectopy. Abdomen: Abdomen non-tender. Bowel sounds normal. No masses, organomegaly, Distended. Extremities: No deformities, edema, skin discoloration, clubbing or cyanosis. Good capillary refill. Peripheral Pulses: Normal, Capillary refill <2secs, strong peripheral pulses, Pulses palpable. No pitting edema noted. Neurologic: Gait normal. Sensation grossly intact. Health Maintenance List SPIROMETRY Never done SHINGRIX VACCINE(1 of 2) Never done HEMOGLOBIN/HEMATOCRIT due on 02/19/2022 ADVANCE DIRECTIVE DISCUSSION Never done BP CONTROLLED (<130/80) due on 05/01/2022 URINE ALBUMIN:CREATININE RATIO due on 05/01/2022 DIABETIC FOOT EXAM due on 08/09/2022 LDL CHOLESTEROL due on 08/17/2022 DILATED RETINAL EXAM due on 08/19/2022 HBA1C due on 09/04/2022 SERUM CREATININE due on 03/06/2023 ANNUAL PCP TEAM CHRONIC DISEASE VISIT due on 05/05/2023 DTAP,TDAP,TD(3 - Td or Tdap) due on 10/17/2027 INFLUENZA Completed HEPATITIS C SCREENING Completed COVID-19 VACCINE Completed PNEUMOCOCCAL: 65+ Completed ASSESSMENT/PLAN: 1. Chronic combined systolic and diastolic congestive heart failure (HCC) - ICD9: 428.42, 428.0, ICD10: I50.42 (primary diagnosis) - Denies wanting to go to ER at this time. - Instructed to continue to take all medication as prescribed. - Continue water restriction. - Office will call tomorrow morning to follow up with patient. - Red flag symptoms given to patient and , they both verbalized understanding when to seek emergency care. 2. Chronic obstructive pulmonary disease, unspecified COPD type (HCC) - ICD9: 496, ICD10: J44.9 - Continue to take all medication as prescribed. 3. Diarrhea, unspecified type - ICD9: 787.91, ICD10: R19.7 - Diarrhea more than likely from antibiotic use for UTI. - After discussion with patient he would like to finish medication. - May add on probiotic. - If symptoms do not improve may need stool testing, patient agreeable to this plan. Follow-up in 1 day. Discussed treatment plan and patient voices understanding. Patient's questions answered appropriately. Medications and potential side effects were discussed and patient voices understanding. Shereen Holt APRN.RODRIGUEZ This note was partially generated using [employer] voice recognition system. Note was reviewed for accuracy. There may be minor misspellings or grammar miscues with [employer] voice recognition. documented in this encounterLicking [facility] Hospital02-13-2023 NoteTr[facility]02-13-2023 NoteTr[facility]02-13-2023 NoteTr[facility]02-13-2023 History of Present illness Narrative* Cece Crews [facility] Health Navigator - 05/12/2022 11:23 AM EST POPULATION HEALTH NAVIGATION OUTREACH Action/FYI I spoke to patient and scheduled PCP appointment for today. Patient Identified by Name and : YES, via phone Outreach Outcome/Action Spoke to patient / parent / legal guardian: Patient scheduled Did you use a PCP flex slot to schedule this appointment? No Reason for Outreach [facility] Payer: Payor: MEDICARE / Plan: MEDICARE A AND B / Product Type: Medicare / Care Gap Reviewed:: Follow-up appointment Reminder: Reminder note to check Health Maintenance for items below Health Maintenance items due: SPIROMETRY Never done SHINGRIX VACCINE(1 of 2) Never done HEMOGLOBIN/HEMATOCRIT due on 02/19/2022 ADVANCE DIRECTIVE DISCUSSION Never done BP CONTROLLED (<130/80) due on 05/01/2022 URINE ALBUMIN:CREATININE RATIO due on 05/01/2022 Navigation Signature: Cece Crews [facility] Health Navigator May 12, 2022 11:23 AM * Kalia Ambrocio RN - 05/12/2022 10:26 AM EST INSIGHT CDM ESCALATION Provider Action/FYI: Please contact patient to evaluate 4# wt gain overnight, worsening sob Patient reports dry wt- 265# Yesterday wt 269 Today 273 Reports B/p fluctuates averaging 160/100 per pt. B/P taken this am by [facility] nurse 140/80. Reports pulse ox ranges from 85%- 98%. At time of call reports 98%. Denies worsening cough, edema, wheezing, fever, chest pain. States staying fairly close to fluid restriction requirement. Endorses having 2 cans chicken noodle soup from can in past week. On 2/3 patient prescribed by PCP additional torsemide 5 mg for 14 days. Patient has 1 pill left. Reports he has not missed doses. Advised by PCP if wt does not come down to present to ER. Patient agrees to call from virtualist Message received via: InSight - Yes contact made with patient ACTION TAKEN: Based on director of estate, the following disposition is advised: Urgent / SAME DAY visit: Page Virtualist at and indicate 'CDM patient', MRN, Patient Name, Patient Concern, and patient's preferred method of contact (telephone, [email or web address], [employer]), your name, your contact number. Informed patient that you recommend further assessment from a provider to review symptoms. I have sent a page for the provider to contact you today. If you haven't heard from that provider and still have concerns, please contact you PCP's office right away. Indicated CDM patient and symptoms in the FYI box and sent alpha page to Virtualist to to contact the patient.Route as 'high priority' to Virtualist nuclear weapons mechanical specialist - End outreach. documented in this encounterLicking [facility] Hospital02-08-2023 Miscellaneous Notes* Telephone Encounter - Ila Almanza LPN - 05/07/2022 3:24 PM EST Patient notified of results, verbalizes understanding of instructions. Ila Almanza LPN * Telephone Encounter - Shereen Holt APRN.RODRIGUEZ - 05/07/2022 3:16 PM EST Can you please call the patient and let him know that I reviewed his urine culture results. Cultureshows mixed microbiota, this can be a sign of contamination when collecting sample. However I wouldrecommend that he stay on antibiotics until finished. We can get a repeat urine sample in 2 weeks to ensure that the blood has cleared. Order is in place, he may stop in the lab in 2 weeks at his convenience to complete urine testing. Please let me know if he has any questions. Thank you Shereen Holt APRN.CNP documented in this encounterLicking Memorial Hospital02-07-2023 Miscellaneous Notes* Telephone Encounter - Jaun Hinson APRN.CNP - 05/06/2022 8:58 AM EST Noted, patient was at appointment yesterday at our facility. Jaun Hinson APRN.CNP * Telephone Encounter - Jerilyn Manuel LPN - 05/06/2022 8:29 AM EST Nadine with [facility] calls to report she went to pt's home yesterday for consult for SW and pt wasnot home. Pt rescheduled for 05/07. Nadine reports she needs a VO that is ok that she has a delay start of care. Call Nadine with dr's VO. Jerilyn Manuel LPN documented in this encounterLicking Memorial Hospital02-06-2023 [facility]02-06-2023 Instructions* Patient Instructions* Shereen Holt APRN.CNP - 05/05/2022 2:36 PM EST Urine will be sent off for testing. Get labs completed Complete INR Thursday Stay well hydrated. Discuss with cardiology about colonoscopy, if they are okay may schedule with general surgery. Follow up pending test results May use coricidin as needed for cough. Continue with supportive care at home. documented in this encounterLicking Memorial Hospital02-06-2023 History of Present illness Narrative* Shereen Holt APRN.CNP - 05/05/2022 2:20 PM EST This is a 76 year old male who presents today with: Patient presents with: Acute Visit: Hematuria and Stool HISTORY OF PRESENT ILLNESS: Lovely Devi is a 76 year old male. Patient presents with: Acute Visit: Hematuria and Stool Here in the office for hematuria that started one week ago. Refers that he noticed mild blood in his underwear, scant amount, refers it was just a drop. No blood noted in the toilet. At times will have dysuria that is intermittent. No testicle pain or penile discharge. No fever, flank pain, abdominal pain. Following with Dr. Hanna, urology, for BPH, next follow up in February. Taking coumadin for Afib, self checking INR twice monthly, refers his next check is this Thursday. Last INR 04/29/2022 was 2.3. Refers he was just released from [facility] ER for facial swelling, blood was noted in stool. Recommend colonoscopy but PCP would like to wait to get cardiac and lung symptoms improved prior. Following withcardiology, [facility], refers he has an appointment in 1 month. Refers he was given 2 blood transfusions and given iron po. Currently not taking any medication for anemia and would like labs completed. PAST MEDICAL HISTORY: PAST MEDICAL HISTORY Diagnosis Date ASHD (arteriosclerotic heart disease) 02/19/2015 Atrial fibrillation (HCC) 07/03/2011 Automatic implantable cardiac defibrillator in situ Petit's esophagus with esophagitis 03/01/2015 Benign neoplasm of colon Chronic diarrhea 09/16/2011 Coronary atherosclerosis of unspecified type of vessel, makah or graft s/p [place] in 1985 Diverticulosis of colon (without mention of hemorrhage) Duodenitis without mention of hemorrhage Dysphagia 03/01/2015 Facet arthritis of lumbar region 07/14/2017 GERD (gastroesophageal reflux disease) 06/10/12 Heart attack (HCC) Labyrinthitis 02/05/2010 Neurocardiogenic syncope 03/01/2015 Obesity 09/16/2011 JESSICA treated with BiPAP DME [employer] Other and unspecified hyperlipidemia Other specified forms of chronic ischemic heart disease Paroxysmal ventricular tachycardia Snoring Stroke (HCC) Tinea of nail 01/13/2011 Type 2 diabetes mellitus with st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, with long-term current use of insulin(HCC) 06/15/2017 Unspecified essential hypertension PAST SURGICAL HISTORY Procedure Laterality Date COLONOSCOPY FLX DX W/COLLJ SPEC WHEN PFRMD 12/21/2017 Dr. Anthony-repeat 3 years-11/2020 COLONOSCOPY W/BIOPSY SINGLE/MULTIPLE 02/21/2009 ESOPHAGOGASTRODUODENOSCOPY TRANSORAL DIAGNOSTIC EGD ESOPHAGOGASTRODUODENOSCOPY TRANSORAL DIAGNOSTIC 02/16/2008 EGD inpt [facility] H-pylori negative ESOPHAGOGASTRODUODENOSCOPY TRANSORAL DIAGNOSTIC 05/24/2015 EGD ESOPHAGOGASTRODUODENOSCOPY TRANSORAL DIAGNOSTIC 12/21/2017 Dr. Anthony-repeat 3 years-11/2020 HEART CATHETERIZATION 12/15/2014 [facility] - see scanned documents HEART SURGERY HX 1 stent LEFT HEART CATH,PERCUTANEOUS Cardiac cath, L heart LEFT HEART CATH,PERCUTANEOUS 06/20/2011 Cardiac cath, L heart PAST SURGICAL HISTORY OF ICD/ pacemaker at [facility] PERC TRANSL COR ANGIO Percutaneous Transluminal Coronary Angio Status REMV CATARACT EXTRACAP,INSERT LENS Bilateral 2020 Right corrected in 2020 and left 2018. ALLERGIES Morphine and Rocephin [Ceftriaxone Sodium] MEDICATIONS Current Outpatient Medications Medication Sig torsemide (DEMADEX) 5 mg tablet Take 1 tablet by mouth once daily for 14 days. Take 30 minutes before taking lasix nortriptyline (PAMELOR) 25 mg capsule Take 1 capsule by mouth daily at bedtime. Nebulizer and Compressor For Neb 1 Each four times daily as needed. albuterol (PROVENTIL) 2.5 mg /3 mL (0.083 %) nebulizer solution USE 1 VIAL IN NEBULIZER EVERY 4 HOURS NEEDED FOR WHEEZING FOR 30 DAYS carvedilol (COREG) 3.125 mg tablet TAKE 1 TABLET BY MOUTH TWICE DAILY WITH MEALS FOR 30 DAYS furosemide (LASIX) 20 mg tablet Take 4 tablets by mouth once daily. insulin glargine (BASAGLAR KWIKPEN U-100 INSULIN) 100 unit/mL (3 mL) Inject 32 Units subcutaneouslyevery morning AND 30 Units daily at bedtime. Patient Assistance Medication. dapagliflozin (FARXIGA) 10 mg tablet Take 1 tablet by mouth daily with breakfast. Please apply 1 time free voucher: RxBin: [id number] PCN: [id number] Group: [id number] ID:[id number] ondansetron orally disintegrating (ZOFRAN ODT) 4 mg disintegrating tablet Take 1 tablet by mouth every 6 hours as needed for nausea/vomiting. insulin lispro (HUMALOG KWIKPEN INSULIN) 100 unit/mL Inject 23 Units subcutaneously three times daily before meals. Plus sliding scale as directed ( 1 unit for every 50 mg/dL above 150 mg/dL) gabapentin (NEURONTIN) 300 mg capsule Take 3 capsules by mouth three times daily for 90 days. dulaglutide (TRULICITY) 3 mg/0.5 mL pen injector Inject 3 mg subcutaneously one time a week. flash glucose scanning reader (Consult A Doctor FILI 2 READER) Use to check blood sugar at least four (4)times daily. warfarin (COUMADIN) 3 mg tablet 3 mg every Mon, Wed, Fri; 6 mg all other days rOPINIRole (REQUIP) 0.5 mg tablet Take 2 tablets by mouth daily at bedtime. albuterol HFA (PROVENTIL HFA) 90 mcg/actuation inhaler Inhale 2 Puffs as instructed every 4 hours while awake. Insulin Syringe-Needle U-100 (BD ULTRAFINE INSULIN) 1 mL 31 gauge x 5/16 1 Each five times daily. latanoprost (XALATAN) 0.005 % ophthalmic solution Use 1 Drop in both eyes three times daily. BIPAP Initiate BiPAP @ 24/18 cm of water with humidification. Mask (per patient preference), chin strap, filters, tubing / heated tubing, heated humidity and lifetime supplies. Dx. JESSICA G47.33 [phone] - fax compliance download to [phone] isosorbide mononitrate ER (IMDUR) 30 mg 24 hr tablet Take 60 mg by mouth once daily. blood sugar diagnostic ([employer] BLOOD GLUCOSE SYSTEM) test strip Use as instructed to check blood sugar 3 to 4 times daily DM: yes Insulin: yes DX:11.[address] (PROTONIX) 40 mg tablet Take 40 mg by mouth once daily. Lancets (ONE TOUCH ULTRASOFT LANCETS) lancets Use with [employer] Glucometer as directed CRESTOR 40 MG TAB Take one(1) tablet daily. NITROGLYCERIN 0.3 MG SUBLINGUAL TAB Dissolve 0.4 mg under the tongue. Usual dose for angina is 1 tablet every 5 minutes for maximum of 3 doses in 15 minutes. No current facility-administered medications for this visit. FAMILY HISTORY Problem Relation Age of Onset Stroke Mother Heart Mother Cancer Father prostate Heart Father Breast Cancer Sister Breast Cancer Sister Diabetes Sister Diabetes Brother Diabetes Brother Social History Tobacco Use Smoking status: Former Types: Cigars Quit date: 08/12/2007 Years since quittin.7 Smokeless tobacco: Never Tobacco comments: 2-3 per day Vaping Use Vaping Use: Never used Substance Use Topics Alcohol use: No Drug use: No REVIEW OF SYSTEMS GENERAL: No weight loss, malaise or fevers/chills HEENT: Negative for frequent or significant headaches, No changes in hearing or vision. NECK: Negative for lumps, goiter, pain and significant neck swelling RESPIRATORY: Negative for cough, hemoptysis, wheezing, dyspnea or shortness of breath CARDIOVASCULAR: Negative for chest pain, leg swelling, orthopnea, or palpitations GI: + Blood in stool : + Hematuria/Dysuria MUSCULOSKELETAL: Negative for joint pain or swelling. SKIN: Negative for lesions, rash, and itching ENDOCRINE: Negative for cold or heat intolerance, polyuria, polydipsia and goiter NEURO: No history of headaches, syncope, paralysis, seizures or tremors MOOD: Negative for depression, anxiety, or suicidal ideation. EXAM: BP 130/80 Pulse 90 Resp 22 Wt 123.8 kg (273 lb) SpO2 97% BMI 41.51 kg/m PHYSICAL EXAM: General Appearance: Well appearing, alert, in no acute distress, well-hydrated, well nourished. Skin: Skin color, texture, turgor normal, no suspicious rashes or lesions. Head: Normocephalic, no masses, lesions, tenderness or abnormalities. Eyes: Anicteric sclera. Extraocular movements are intact. Lungs: Lungs clear to auscultation. No wheezing, rhonchi, rales. Heart: RRR without murmur, gallop, or rubs. No ectopy. Extremities: No deformities, edema, skin discoloration, clubbing or cyanosis. Good capillary refill. Peripheral Pulses: Normal, Capillary refill <2secs, strong peripheral pulses, Pulses palpable. Neurologic: Gait normal. Sensation grossly intact. + UA: Blood small, Leuks small, Glucose ASSESSMENT/PLAN: 1. Dysuria - ICD9: 788.1, ICD10: R30.0 (primary diagnosis) acute - UA positive for nataliia esterase and hematuria - Send urine for culture/Micro - Stay well hydrated - URINE CULTURE - URINALYSIS, WITH MICROSCOPIC 2. Blood in the stool - ICD9: 578.1, ICD10: K92.1 - Discuss with cardiology at up coming appointment for clearance for colonoscopy, if approval givenschedule appointment with general surgery. - CONSULT TO GENERAL SURGERY 3. Anemia, unspecified type - ICD9: 285.9, ICD10: D64.9 - Get labs completed. - Lab orders from PCP as well. - IRON + TIBC - FERRITIN BLD 4. Paroxysmal atrial fibrillation (HCC) - ICD9: 427.31, ICD10: I48.0 - Patient would like to wait until Thursday to check INR himself, if needed may have lab completed. - PROTHROMBIN TIME/PT Follow up pending test results or sooner as needed. Discussed treatment plan and patient voices understanding. Patient's questions answered appropriately. Medications and potential side effects were discussed and patient voices understanding. Shereen Holt APRN.RODRIGUEZ This note was partially generated using [employer] voice recognition system. Note was reviewed for accuracy. There may be minor misspellings or grammar miscues with [employer] voice recognition. documented in this encounterLicking Memorial Hospital02-06-2023 Miscellaneous Notes* Telephone Encounter - Tasha Chan RN - 05/05/2022 11:02 AM EST Protocol recommends see provider in 4 hours. Appt scheduled. Reason for Disposition Taking Coumadin (warfarin) or other strong blood thinner, or known bleeding disorder (e.g., thrombocytopenia) Answer Assessment - Initial Assessment Questions 1. COLOR of URINE: Alexandria Quinn, phones to schedule appt for patient. Reports patient c/o blood in urine and in underwear. 2. ONSET: Last week and has been off / on 3. EPISODES: Not everytime. Hasn't seen any today. Last time saw blood in underwear was last week. Hasn't seen blood for a couple days. 4. PAIN with URINATION: Pain with urination every now and then since last week. Moderate. 5. FEVER: No 6. ASSOCIATED SYMPTOMS: Frequency. Changed lasix to twice day, lost 4 lbs in past 24 hours. No urine odor. No confusion. SOB at rest. LCTA no wheeze. +1 pitting edema is an improvement in lower legs.144/80 (79) 98% RA. 7. OTHER SYMPTOMS: Feels like he can't get enough air. Non productive cough and dizziness- almost fell. Sitting to standing causes dizziness. 8. : N/A Protocols used: Urine - Blood In-ADULT- documented in this encounterLicking Memorial Hospital02-04-2023 Miscellaneous Notes* Telephone Encounter - Trev Patino MD - 05/03/2022 9:12 AM EST Noted Trev Patino MD * Telephone Encounter - Estrella Edwards RN - 05/02/2022 4:11 PM EST Violetta [facility] nurse calling to report to PCP that patient fell at home on evening of 05/01/22. Pt without injuries and did not hit his head. Pt reports dizziness with position changes and pt was educated on this by Violetta. No call back needed. Thank you. documented in this encounterLicking Memorial Hospital02-03-2023 Miscellaneous Notes* Telephone Encounter - Magy Gonzalez RN - 05/02/2022 11:36 AM EST Called and left message for Joana in regards to provider's instructions: Ok for SW consult also I ordered Demadex 5 mg daily to take in addition to Lasix Ok for increased nursing visits as requested If weight does not come down with Demadex he should go to ER Dr Patino Called and spoke with patient about Dr. Patino ordering medication to take along with Lasix. Advised patient that if his weight does not come down with medication added then he will have to go toER. Patient voiced understanding. Magy Gonzalez RN * Telephone Encounter - Magy Gonzalez RN - 05/02/2022 9:38 AM EST Patient was seen on 04/28/2022 and his weight was 267, O2 level was 95%. Patient called Joana pederson. Patient was audibly wheezing over the phone. Patient was struggling with conversation. Patients legs and feet were more swollen. Patient reported a 4 pound weight gain since yesterday. Patient's current weight is 273,O2 is 91%. Patient did take his 80 mg of lasix this morning. Patient had called Joana yesterday and complained of a dizzy spell. Joana has the following requests: Does provider want to order more diuretic to help diurese patient? 2. Joana would like an extra nursing visit for this weekend. 3. Joana would like to increase patient's frequency of visits. Currently see patient once a week. Would like to see patient for 2 times a week at least for the next 2 weeks. 4. Joana asking for a SW consult to help patient get a med alert button since patient lives alone.Patient was agreeable to this. Please review and advise, Magy Gonzalez RN documented in this encounterLicking Memorial Hospital01-31-2023 Miscellaneous Notes* Telephone Encounter - May Martinez Ma - 04/29/2022 3:01 PM EST Detailed message left on Mamie's identified and confidential VM. May Martinez Ma * Telephone Encounter - Trev Patino MD - 04/29/2022 2:53 PM EST OK to take Colace once or twice daily for stool softener OK to get CMP and CBC as ordered Trev Patino MD * Telephone Encounter - Nadira Murillo RN - 04/28/2022 12:43 PM EST [facility] nurse calling to let PCP know that she saw patient today. Patient reported to her that he gained 2 pounds on Thursday but no further increase in weight over the weekend. No SOB but he has 1+ LE edema. She states he has some abdominal distention but his abdomen is firm and he is complaining of constipation. Per Mamie, he has been having daily small hard bowel movements. She said he also complained of very dry mouth and intermittent dizziness. She says he took Lasix 80 mg as prescribed this AM and has only voided x 1 since then. She says he limits his fluids to about 60 ounces a day. - nurse is asking if he needs a stool softener order? - nurse is asking if he needs any labs drawn? Nadira Murillo RN documented in this encounterLicking Memorial Hospital01-30-2023 Miscellaneous Notes* Telephone Encounter - Jaun Hinson APRN.RODRIGUEZ - 04/28/2022 7:41 AM EST The following approved medication requests have been transmitted electronically. Requested Prescriptions Pending Prescriptions Disp Refills nortriptyline (PAMELOR) 25 mg capsule 90 capsule 3 Sig: Take 1 capsule by mouth daily at bedtime. Jaun Hinson APRN.RODRIGUEZ * Telephone Encounter - Ila Almanza LPN - 04/28/2022 7:38 AM EST Patient phones requesting refills as follows: Requested Prescriptions Pending Prescriptions Disp Refills nortriptyline (PAMELOR) 25 mg capsule 90 capsule 3 Sig: Take 1 capsule by mouth daily at bedtime. CALVIN-04/22/22 Labs-03/06/22 NOV-06/20/22 med filled 05/15/21 Please review and advise. Ila Almanza LPN documented in this encounterLicking Memorial Hospital01-27-2023 Miscellaneous Notes* Telephone Encounter - May Martinez Ma - 04/25/2022 4:23 PM EST [facility] notified and voiced understanding. May Martinez Ma * Telephone Encounter - Trev Patino MD - 04/25/2022 4:15 PM EST Fluoxetine and nortriptyline have both been stopped; med list updated Trev Patino MD * Telephone Encounter - Cristina Chau RN - 04/25/2022 3:21 PM EST [facility] called in and was asking for an update medication list for the Pt from 04/22/22. I was going over medications she reports the Pt said provider had taken him off of Prozac and Nortriptyline. Let her know that Nortriptyline was still on med list, although at the bottom of discharge papers it said, May stop the Fluoxetine and Nortriptyline. If you feel like you need these or start havingpain and feeling anxious or depressed we can always restart them. She would like a call back to know if donohue were stopped since the is still on his med list. Please call and advise. I you leave a voice mail leave you name and title. documented in this encounterLicking Memorial Hospital01-27-2023 Miscellaneous Notes* Telephone Encounter - Tasha Chan RN - 04/25/2022 4:16 PM EST Gayle- [facility]- reports she had visit with patient today requesting zofran refill for patient. Advised patient has 2 refills on zofran at [facility]. Gayle reports called them today and was told they had no refills. This nurse spoke with pharmacy who reports there are 2 refills left and they will get one ready for patient pickup. Left vm for patient to return call to nurse to let him knowpharmacy is getting his Rx ready for pickup. No answer, and vm does not identify patient. Notifed GayleTrini vazquez is getting zofran ready for pickup. Gayle will try calling patient again. documented in this encounterLicking Memorial Hospital01-26-2023 Miscellaneous Notes* Telephone Encounter - May Martinez Ma - 04/24/2022 10:59 AM EST [facility]axed to [facility] May Martinez Ma * Telephone Encounter - Trev Patino MD - 04/24/2022 10:45 AM EST New Rx printed Trev Patino MD * Telephone Encounter - Cindi Eastman LPN - 04/23/2022 9:02 AM EST Hope with [facility] called and they received a faxed order for nebulizer. The order needs to say compressor or nebulizer with compressor. She also needs a face sheet faxed to [phone]. Cindi Eastman LPN documented in this encounterLicking Memorial Hospital01-24-2023 Miscellaneous Notes* Telephone Encounter - May Martinez Ma - 04/22/2022 4:30 PM EST Contacted pt, advised that I spoke with [facility] and they have nebulizer machines there. Order faxed to [facility]. May Martinez Ma * Telephone Encounter - Trev Patino MD - 04/22/2022 4:21 PM EST Order printed; may fax to wherever he wants to get the nebulizer Trev Patino MD * Telephone Encounter - Cristina Chau RN - 04/22/2022 4:11 PM EST Pt called in and reports Dr Wisdom ordered him nebulizer fluid, but did not order him the nebulizer. He is asking if the provider would send one in for him for CHF, wheezing, and SOB. Please call and advise Pt. Patient has been identified by name and date of : Yes, Provider Dr Patino Date 04/22/22 Time 1617. Patient phones for refill(s): Requested Prescriptions No prescriptions requested or ordered in this encounter Date of last office visit in primary care: 04/22/22 Future visit: 06/20/22 Last 2 Encounter Wt Readings: Date: Wt: 04/22/2022 122.5 kg (270 lb) 03/16/2022 132.9 kg (293 lb) Previous labs/tests for medication: Blood Pressure: BUN (mg/dL) Date Value 03/06/2022 24 02/19/2021 28 Sodium (mmol/L) Date Value 03/06/2022 141 02/19/2021 139 Last 1 Encounter BP Readings: Date: BP: 04/22/2022 120/72 Liver Function: ALT (U/L) Date Value 02/19/2021 46 AST (U/L) Date Value 02/19/2021 41 Please advise. Thank you. Cristina Chau RN documented in this encounterLicking Memorial Hospital01-24-2023 [facility]Tr[facility]23 Instructions* Patient Instructions* May Martinez Ma - 04/22/2022 2:43 PM EST May stop the Fluoxetine and Nortriptyline. If you feel like you need these or start having pain andfeeling anxious or depressed we can always restart them. Follow up with Dr. Ayala-Pulmonary Follow up with Cardiology documented in this encounterLicking Memorial Hospital01-24-2023 History of Present illness Narrative* Trev Patino MD - 04/22/2022 2:20 PM EST Transitional Care Management TCM Eligibility Documentation The following information was gathered during the initial Patient Outreach Encounter. No flowsheet data found. Provider Documentation Lovely Devi is a 76 year old male here today for a follow up from recent hospitalization. I have reviewed the patient's hospital course including discharge summary, discharge medications ,and follow up needs with the patient and any family members present at today's visit. HPI 7 day TCM Pt admitted to [facility] on 03/16/22 for SOB CHF and COPD exacerbation, was moved to Acute Care and then discharged home on 04/18/22 with SN, PT, and OT through [facility]. He can't walk far due to SOB and strength which he thinks is getting better. He has little energy, breathing is not doing to well, he is going to be picking up a nebulizer to start using. He is scheduled to see Dr. Perry Care Coordinator and Pulm Dr. Ayala. He states that his bowels have not been to good, last BM was 2 days ago and it was diarrhea, statesit seems to go from one to the other. He is not taking anything for constipation. Has been taking Probiotic. He is having chest pain and SOB. Denies any dizziness. He had a full cardiac work up done. The painin the chest is intermittent, it is a sharp pain on left upper chest that makes him jump. Does not seem to be triggered with movement or breathing, states it just comes and goes. He does not feel it is getting any worse. He is weighing himself at home. He states that the swelling in the legs have been doing ok since being home. Is on Lasix 80 mg daily. His Coreg was changed to 3.125 mg BID. Had some blood in his stool and hospital advised pt to speak with Primary about colonoscopy. He hadcolonoscopy 11/2017 with a 4 mm polyp removed; follow up was recommended in [address] Anthony..Will address cardiac and lung issues first. He stated they also found a clot in his leg, taking Coumadin for a fib. He questions why he is taking Fluoxetine and Nortriptyline. He states he doesn't feel depressed or anxious. He states he just feels frustrated. DM: Taking Basaglar and Lantus. No longer on Trulicity. Checking BS at home with reading running 130 average over the last 7 days. Last 90 day average of 139. Falls Risk Intake: Patient age 65 or over, unsteady, or was advised to use special equipment to aid ambulation (i.e., cane or walker)? Yes Has the patient had two falls in the past year, or one with injury? Yes Does the patient need to use their hands when pushing up from chair, or hold onto furniture when ambulating at home? Yes Is the patient worried about falling? Yes Please inform patient that answering Yes to one or more of the questions above can increase theirrisk of falling Patient is at greater risk for falls. Falls Instruction: Teaching document below - reviewed and given to patient [facility] - FALLS Prevention Safety Plan Below copied from [facility] [employer]: HPI History of Present Illness Chief Complaint: Shortness of Breath Narrative Narrative: 76-year-old male presenting with shortness of breath. Shortness of breath is worsened with exertion. He states he has gained 15 pounds in the last 2 days. He went to urgent care and they advised him to come to the ED for further evaluation. History of congestive heart failure. His Lasix was increased 2 weeks ago from 40mg twice a day to 60mg twice a day. He has had no improvement with this change. Denies fever or other complaints. Prior similar symptoms: Yes Recent Illness/Hospitalization: No Hospital Course Operations None Procedures None Summary of Care Provided Minutes Spent on Discharge: 35 Hospital Course: 76 year old male with below past medical history hospitalized for acute on chronic diastolic congestive heart failure, complicated by COPD exacerbation, admitted to TCU with debility, here for rehabilitation, strengthening, prior to discharge home with . Discharge home with 04/18/2022, [facility] PT/OT/SN. PHYSICAL EXAMINATION BP 120/72 Pulse 72 Resp 18 Wt 122.5 kg (270 lb) BMI 41.05 kg/m PHYSICAL EXAMINATION: General appearance: Obese, Walker, and NAD Skin: chronic venous stasiss changes bilateral lower legs Lungs: decreased breath sounds, no wheezing or rales Heart: irregular ASSESSMENT/PLAN: 1. Hospital discharge follow-up - ICD9: V67.59, ICD10: Z09 (primary diagnosis) 2. Acute on chronic systolic congestive heart failure (HCC) - ICD9: 428.23, 428.0, ICD10: I50.23 Continue current medications. - FUROSEMIDE 20 MG TABLET - COMP METABOLIC PANEL - CBC 3. Essential hypertension - ICD9: 401.9, ICD10: I10 - good control - Continue current medication(s) - Recommended regular aerobic exercise. - Recommend home blood pressure monitoring, to bring results in on next visit - Goal of BP <140/90 - COMP METABOLIC PANEL - CBC 4. Paroxysmal atrial fibrillation (HCC) - ICD9: 427.31, ICD10: I48.0 5. Class 3 severe obesity with serious comorbidity and body mass index (BMI) of 40.0 to 44.9 in adult, unspecified obesity type (HCC) - ICD9: 278.01, V85.41, ICD10: E66.01, Z68.41 6. Type 2 diabetes mellitus with stage 3a chronic kidney disease, with long-term current use of insulin (HCC) - ICD9: 250.40, 585.3, V58.67, ICD10: E11.22, N18.31, Z79.4 Controlled. - Continue current medications - COMP METABOLIC PANEL - CBC - HGB A1C 7. Type 2 diabetes mellitus with diabetic neuropathy, with long-term current use of insulin (HCC) -ICD9: 250.60, 357.2, V58.67, ICD10: E11.40, Z79.4 8. 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 Chronic combined systolic and diastolic congestive heart failure (HCC) - ICD9: 428.42, 428.0, ICD10: I50.42 Continue current medications. Follow with Cardiology 10. Atrial flutter, unspecified type (HCC) - ICD9: 427.32, ICD10: I48.92 11. Chronic kidney disease, stage 3a (HCC) - ICD9: 585.3, ICD10: N18.31 12. Chronic obstructive pulmonary disease, unspecified COPD type (HCC) - ICD9: 496, ICD10: J44.9 Follow with Pulm Follow up in 2 months with labs prior I agree with the Chief Complaint, ROS, and Past Histories independently gathered by the clinical client application support specialist and the remaining scribed note accurately describes my personal service to the patient. Trev Patino MD The documentation for this note was completed by May Martinez Ma acting as scribe for Trev Patino MD. April 22, 2022 2:36 PM. May Martinez Ma documented in this encounterLicking [facility] Hospital01-24-2023 Miscellaneous Notes* Telephone Encounter - Chencho Helms (Compound Filler) - 04/22/2022 1:51 PM EST PATIENT CALL Nish called call center regarding results Result has been addressed below. Chencho Helms (Compound Filler) * Telephone Encounter - Varsha Moss [facility] - 04/22/2022 12:37 PM EST [facility] Anticoagulation Episode Summary Anticoagulation Care Providers Provider Role Specialty Phone number Trev Patino MD Referring Family Medicine [phone] Lovely Devi is a 76 year old year old male patient being evaluated today for a Telemanagement visit. Patient is currently on the following anticoagulant(s) Warfarin. Labs PT INR (no units) Date Value 07/03/2021 2.7 (biotel) 06/19/2021 2.6 (biotel) 06/05/2021 3.3 (biotel) INR Home CoaguChek (no units) Date Value 04/22/2022 1.7 03/20/2022 1.7 03/05/2022 2.5 Hemoglobin (g/dL) Date Value 02/19/2021 11.3 Hematocrit (%) Date Value 02/19/2021 37.1 Platelet Count (k/uL) Date Value 02/19/2021 163 Creatinine (mg/dL) Date Value 03/06/2022 1.50 02/19/2021 1.40 09/21/2020 1.74 09/14/2020 1.82 Bilirubin, Total (mg/dL) Date Value 02/19/2021 0.4 ALT (U/L) Date Value 02/19/2021 46 AST (U/L) Date Value 02/19/2021 41 Estimated Creatinine Clearance: 55.8 mL/min (A) (based on SCr of 1.5 mg/dL (H)). ALLERGIES Allergen Reactions Morphine Rocephin [Ceftriaxo* Other: See Comments Hot flashes; redness to skin Indication for Warfarin: Anticoagulation Episode Summary Current INR goal: 2.0-3.0 Assessment: INR result of 1.7 is subtherapeutic. Patient was in the [facility] from 03/16-04/18. No new meds. Plan: Current Warfarin Dosing As of 04/22/2022 Full warfarin instructions: 04/23: 6 mg; Otherwise 3 mg every Mon, Wed, Fri; 6 mg all other days; Starting 04/22/2022 Called and spoke to patient/caregiver Advised patient to increase dose for 1 day only then resume weekly regimen Next home INR check scheduled on 04/29/2022 Patient verbalizes understanding of the plan. Varsha Moss [facility] Clinical Pharmacist, Pharmacy Anticoagulation Clinic Pharmacy Anticoagulation Clinic Pager: [phone]. documented in this encounterLicking [facility] Hospital01-24-2023 Miscellaneous Notes* Telephone Encounter - Trev Patino MD - 04/22/2022 10:22 AM EST Noted; he has appt with me this PM Trev Patino MD * Telephone Encounter - Jerilyn Manuel LPN - 04/22/2022 9:45 AM EST Argelia with [facility] OT calls to report that she saw pt today. Argelai reports they worked on energy conservation teaching and pt feels like the one time visit is enough and he can do it on his own. Argelia reports that pt said when he was in the hospital he felt like he was doing better walking around in his room and in the hallway. Pt reports now that he is home he feels like he has more SOB. Argelia report at rest pt's PO was 97-99. When pt was up walking [id number] feet which was 1-2 minutes pt's PO dropped to 90 then 87. 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 Jerilyn Manuel LPN documented in this encounterLicking [facility] Hospital01-23-2023 Miscellaneous Notes* Telephone Encounter - Trev Patino MD - 04/21/2022 5:18 PM EST Noted and agree Trev Patino MD * Telephone Encounter - Cindi Eastman LPN - 04/21/2022 4:09 PM EST Shereen with [facility], PT calling with plan of care. Will see pt 2 times a week for 4 weeks for lower extremities strengthening, transfer and gait training and balance. No call back needed. Cindi Eastman LPN documented in this encounterLicking Memorial Hospital01-19-2023 Miscellaneous Notes* Telephone Encounter - May Martinez Ma - 04/17/2022 1:43 PM EST Taniya notified. May Martinez Ma * Telephone Encounter - Trev Patino MD - 04/17/2022 1:39 PM EST Noted I will follow and sign for orders Trev Patino MD * Telephone Encounter - Estrella Edwards RN - 04/17/2022 9:45 AM EST Taniya with [facility] calling to state they have received [facility] orders for pt for longterm, PT and OT. Asking if PCP will follow and sign for orders? Pt is discharging from [facility] on 04/18/22 and start of care will be 04/19/22 for pt. Please call Taniya back with verbal order, . Thank you. documented in this encounterLicking Memorial Hospital12-23-2022 Miscellaneous Notes* Telephone Encounter - Moraima Alvarenga, [facility] - 03/21/2022 9:52 AM EST [facility] Anticoagulation Episode Summary Anticoagulation Care Providers Provider Role Specialty Phone number Trev Patino MD Referring Family Medicine [phone] Lovely Devi is a 76 year old year old male patient being evaluated today for a Telemanagement visit. Patient is currently on the following anticoagulant(s) Warfarin. Labs PT INR (no units) Date Value 07/03/2021 2.7 (biotel) 06/19/2021 2.6 (biotel) 06/05/2021 3.3 (biotel) INR Home CoaguChek (no units) Date Value 03/20/2022 1.7 03/05/2022 2.5 02/12/2022 2.6 Hemoglobin (g/dL) Date Value 02/19/2021 11.3 Hematocrit (%) Date Value 02/19/2021 37.1 Platelet Count (k/uL) Date Value 02/19/2021 163 Creatinine (mg/dL) Date Value 03/06/2022 1.50 02/19/2021 1.40 09/21/2020 1.74 09/14/2020 1.82 Bilirubin, Total (mg/dL) Date Value 02/19/2021 0.4 ALT (U/L) Date Value 02/19/2021 46 AST (U/L) Date Value 02/19/2021 41 Estimated Creatinine Clearance: 55.8 mL/min (A) (based on SCr of 1.5 mg/dL (H)). ALLERGIES Allergen Reactions Morphine Rocephin [Ceftriaxo* Other: See Comments Hot flashes; redness to skin Indication for Warfarin: Paroxysmal atrial fibrillation (hcc) Anticoagulated on coumadin Anticoagulation Episode Summary Current INR goal: 2.0-3.0 Assessment: INR result of 1.7 is SUBtherapeutic due to: unknown cause - did not speak to patient Patient currently admitted to [facility] Plan: Current Warfarin Dosing As of 03/19/2022 Full warfarin instructions: 3 mg every Mon, Wed, Fri; 6 mg all other days; Starting 03/19/2022 Called and spoke to patient/caregiver Advised for patient to call PAC upon hospital discharge, will put follow up for next week The patient's caregiver verbalizes understanding the plan. Moraima Alvarenga RPh Clinical Pharmacist, Pharmacy Anticoagulation Clinic Pharmacy Anticoagulation Clinic Pager: [phone]. * Telephone Encounter - Chencho Helms (Compound Filler) - 03/21/2022 8:50 AM EST PATIENT CALL [employer] called call center regarding results PT INR (no units) Date Value 07/03/2021 2.7 (biotel) 06/19/2021 2.6 (biotel) 06/05/2021 3.3 (biotel) INR Home CoaguChek (no units) Date Value 03/20/2022 1.7 03/05/2022 2.5 02/12/2022 2.6 Patient can be reached at [phone] Chencho Helms (Compound Filler) * Telephone Encounter - Kelsie Cerrato RPh - 03/19/2022 9:55 AM EST Patient was due to test INR today will continue to monitor for results. Kelsie Cerrato PharmD Pharmacy Anticoagulation Clinic documented in this encounterLicking Memorial Hospital12-21-2022 Evaluation note* Diagnosis Type 2 diabetes mellitus with diabetic neuropathy, with long-term current use of insulin (HCC) Type 2 diabetes mellitus with stage 3a chronic kidney disease, with long-term current use of insulin (HCC) documented in this encounter [facility]12-20-2022 Miscellaneous Notes* Telephone Encounter - Day Richardson Ma - 03/18/2022 9:36 AM EST Rx has been faxed to [facility] at [phone]. Day Richardson Ma * Telephone Encounter - Trve Patino MD - 03/17/2022 5:56 PM EST Rx printed Trev Patino MD * Telephone Encounter - May Martinez Ma - 03/17/2022 1:37 PM EST Office received fax from [employer] with [employer] pt assistance program stating that they needa new rx for Basaglar U100 kwik pens faxed to [phone] or e-scribe to [employer] [facility] [place], [place]. [facility] is already listed as pharmacy in pt chart. May Martinez Ma documented in this encounterLicking Memorial Hospital12-20-2022 Evaluation note* Diagnosis Type 2 diabetes mellitus with stage 3a chronic kidney disease, with long-term current use of insulin (HCC) documented in this encounter [facility]12-18-[facility] History of Present illness Narrative* Becky Mccarthy APRN.PUPPET MAKER - 03/16/2022 2:17 PM EST 76 year old male with PMH DM, CHF, hyperlipidemia, a-flutter and CKD Presents with left sided body swelling, most significant in face. +SOB Endorses that he has had a new 20 lb weight gain over the past day. History of CHF. Discussed with patient and my concerns for possible CHF exacerbation and fluid overload. Directed to ED Declines EMS. documented in this encounterLicking [facility] Hospital12-14-2022 History of Present illness Narrative* Cholo Thorpe, [facility] - 03/12/2022 10:30 AM EST Primary Care Pharmacy Visit CC (Reason for Consult): DM Goal: A<7% Last Collaborating Physician/PARAFFIN 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 Visit: 03/08/22 Lovely Devi is a 76 year old male presenting for follow up visit by telephone. Patient consents to pharmacy collaborative practice agreement. At last visit with pharmacy on 12/23/21 the following changes were made: Farxiga was started. INTERIM HISTORY: Continues Farxiga 10 mg daily Completed [place] and [place] PAP forms and has received supply from PAP program Nausea started a week and a half ago, has been taking Zofran as prescribed by PCP and it is helping Current DM Medications: Trulicity 3 mg once weekly Farxiga 10 mg once daily Humalog 20 units three times daily before meals + Sliding Scale (1 units for every 50 mg/dL above 150 mg/dL) Basaglar 30 units in the morning and 30 units in the evening Preventative Medications: On NIYA/ARB: Yes On Statin: Yes GLYCEMIC CONTROL: Summary of CGM Findings: (last 14 days) 1- CGM recording is adequate for interpretation 2- Average glucose is 168 mg/dL. 12am - 6 am: 146 mg/dL 6 am -12pm: 191 mg/dL 12pm - 6 pm: 184 mg/dL 6pm - 12am: 151 mg/dL 3- Total frequency of hypoglycemia: 4% 4- Nocturnal hypoglycemia was not noted. 5- Hyperglycemic episodes: 41 % 6- Time in target range (70-180 mg/dL): 55 % ROS: Patient denies CP, SOB, FAITH, blurred vision, dizziness or lightheadedness Patient denies nausea, vomiting, diarrhea, abdominal pain Patient denies symptoms of hypoglycemia (sweating, anxiety, palpitations, hunger, and tremor) Patient denies symptoms of hyperglycemia (polyuria, polydipsia, polyphagia) Patient denies potential medication adverse effects MEDICATIONS: Adherence: denies missed doses. 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 Esophageal Reflux Benign Neoplasm of Colon Dermatophytosis of Nail Paroxysmal Atrial Fibrillation (Hcc) Anticoagulated On Coumadin Class 3 Severe Obesity With Serious Comorbidity and Body Mass Index (Bmi) of 40.0 to 44.9 in Adult ([facility]) Stasis Dermatitis of Both Legs Foot Callus Hyperlipidemia Ldl Goal <100 Ashd (Arteriosclerotic Heart Disease) Neurocardiogenic Syncope 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 With Stage 3a Chronic Kidney Disease, With Long-Term Current Use of Insulin ([facility]) Facet Arthritis of Lumbar Region Adenopathy Atrial Flutter ([facility]) Balanitis Coronary Angioplasty Status History of Deep Venous Thrombosis History of Non-St Elevation Myocardial Infarction (Nstemi) Ischemic Cardiomyopathy Jessica (Obstructive Sleep Apnea) Restless Leg Syndrome Chronic Combined Systolic and Diastolic Congestive Heart Failure ([facility]) Type 2 Diabetes Mellitus With Diabetic Neuropathy, With Long-Term Current Use of Insulin ([facility]) 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 and Stage 3a Chronic Kidney Disease ([facility]) 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 At Moderate Risk for Fall Chronic Pain of Both Knees Stage 3a Chronic Kidney Disease ([facility]) PAST MEDICAL HISTORY Diagnosis Date ASHD (arteriosclerotic heart disease) 02/19/2015 Atrial fibrillation ([facility]) 07/03/2011 Automatic implantable cardiac defibrillator in situ Petit's esophagus with esophagitis 03/01/2015 Benign neoplasm of colon Chronic diarrhea 09/16/2011 Coronary atherosclerosis of unspecified type of vessel, makah or graft s/p [place] in 1985 Diverticulosis of colon (without mention of hemorrhage) Duodenitis without mention of hemorrhage Dysphagia 03/01/2015 Facet arthritis of lumbar region 07/14/2017 GERD (gastroesophageal reflux disease) 06/10/12 Heart attack (HCC) Labyrinthitis 02/05/2010 Neurocardiogenic syncope 03/01/2015 Obesity 09/16/2011 JESSICA treated with BiPAP DME [employer] Other and unspecified hyperlipidemia Other specified forms of chronic ischemic heart disease Paroxysmal ventricular tachycardia Snoring Stroke ([facility]) Tinea of nail 01/13/2011 Type 2 diabetes mellitus with st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, with long-term current use of insulin([facility]) 06/15/2017 Unspecified essential hypertension ALLERGIES Allergen Reactions Morphine Rocephin [Ceftriaxo* Other: See Comments Hot flashes; redness to skin Current Outpatient Medications Medication Sig furosemide (LASIX) 20 mg tablet Take 3 tablets by mouth twice daily. ondansetron orally disintegrating (ZOFRAN ODT) 4 mg disintegrating tablet Take 1 tablet by mouth every 6 hours as needed for nausea/vomiting. carvedilol (COREG) 6.25 mg tablet Take 1 tablet by mouth twice daily. dapagliflozin (FARXIGA) 5 mg tablet Take 1 tablet by mouth daily with breakfast. Please apply 1 time free voucher: RxBin: [id number] PCN: [id number] Group: [id number] ID:[id number] insulin glargine (BASAGLAR KWIKPEN U-100 INSULIN) 100 unit/mL (3 mL) Inject 33 Units subcutaneouslyevery morning AND 33 Units daily at bedtime. Patient Assistance Medication. insulin lispro (HUMALOG KWIKPEN INSULIN) 100 unit/mL Inject 23 Units subcutaneously three times daily before meals. Plus sliding scale as directed ( 1 unit for every 50 mg/dL above 150 mg/dL) gabapentin (NEURONTIN) 300 mg capsule Take 3 capsules by mouth three times daily for 90 days. dulaglutide (TRULICITY) 3 mg/0.5 mL pen injector Inject 3 mg subcutaneously one time a week. lisinopril (ZESTRIL, PRINIVIL) 20 mg tablet Take 1 tablet by mouth once daily. famotidine (PEPCID) 20 mg tablet Take 1 tablet by mouth daily at bedtime. flash glucose scanning reader (FREESTYLE FILI 2 READER) Use to check blood sugar at least four (4)times daily. flash glucose sensor (FREESTYLE FILI 2 SENSOR) kit Apply new sensor every fourteen (14) days to upper arm. clopidogrel (PLAVIX) 75 mg tablet Take 1 tablet by mouth once daily. warfarin (COUMADIN) 3 mg tablet 3 mg every Mon, Wed, Fri; 6 mg all other days rOPINIRole (REQUIP) 0.5 mg tablet Take 2 tablets by mouth daily at bedtime. FLUoxetine (PROZAC) 20 mg capsule Take 1 capsule by mouth once daily. nortriptyline (PAMELOR) 25 mg capsule Take 1 capsule by mouth daily at bedtime. albuterol HFA (PROVENTIL HFA) 90 mcg/actuation inhaler Inhale 2 Puffs as instructed every 4 hours while awake. Qdehm-8-KQM-EPA-Fish Oil (FISH OIL) 1,000 mg (120 mg-180 mg) cap Take 1 capsule by mouth once daily. Insulin Syringe-Needle U-100 (BD ULTRAFINE INSULIN) 1 mL 31 gauge x 5/16 1 Each five times daily. latanoprost (XALATAN) 0.005 % ophthalmic solution Use 1 Drop in both eyes three times daily. colestipol (COLESTID) 1 gram tablet Take 1 g by mouth twice daily. BIPAP Initiate BiPAP @ 24/18 cm of water with humidification. Mask (per patient preference), chin strap, filters, tubing / heated tubing, heated humidity and lifetime supplies. Dx. JESSICA G47.33 327.87 - fax compliance download to [phone] flash glucose sensor (FREESTYLE FILI 14 DAY SENSOR) kit 1 Each four times daily. spironolactone (ALDACTONE) 25 mg tablet Take 1 tablet by mouth once daily. isosorbide mononitrate ER (IMDUR) 30 mg 24 hr tablet Take 60 mg by mouth once daily. blood sugar diagnostic ([employer] BLOOD GLUCOSE SYSTEM) test strip Use as instructed to check blood sugar 3 to 4 times daily DM: yes Insulin: yes DX:11.9 fenofibrate nanocrystallized (TRICOR) 145 mg tablet Take 1 tablet by mouth once daily. pantoprazole DR (PROTONIX) 40 mg tablet Take 40 mg by mouth once daily. Lancets (ONE TOUCH ULTRASOFT LANCETS) lancets Use with Onetouch Glucometer as directed Aspirin 81 mg ORAL Tab Take 1 tablet by mouth once daily. Take with food. CRESTOR 40 MG TAB Take one(1) tablet daily. NITROGLYCERIN 0.3 MG SUBLINGUAL TAB Dissolve 0.4 mg under the tongue. Usual dose for angina is 1 tablet every 5 minutes for maximum of 3 doses in 15 minutes. No current facility-administered medications for this visit. EXAM: Last 3 Encounter BP Readings: Date: BP: 03/08/2022 140/90 01/29/2022 120/80 01/24/2022 109/56 Wt: 129.6 kg (285 lb 11.2 oz) BMI: 43.44 kg/(m^2) LABS: Lab Results Component Value Date HBA1C 7.9 03/06/2022 HBA1C 7.8 11/19/2021 HBA1C 7.3 08/17/2021 HBA1C 7.2 05/01/2021 HBA1C 7.2 03/04/2021 HBA1C 6.9 10/23/2020 CMP: Glucose 68 03/06/2022 BUN 24 03/06/2022 Creatinine 1.50 03/06/2022 Sodium 141 03/06/2022 Potassium 3.7 03/06/2022 Chloride 103 03/06/2022 CO2 24 03/06/2022 Protein, Total 7.0 02/19/2021 Albumin 4.1 02/19/2021 Calcium 9.0 03/06/2022 Alkaline Phosphatase 75 02/19/2021 Bilirubin, Total 0.4 02/19/2021 AST 41 02/19/2021 ALT 46 02/19/2021 Serum creatinine: 1.5 mg/dL (H) 03/06/22 1224 Estimated creatinine clearance: 55.1 mL/min (A) GFR (mL/MIN) Date Value 01/04/2020 54 GFR (mL/MIN) Date Value 01/04/2020 54 eGFR- (no units) Date Value 02/19/2021 60 Lab Results Component Value Date CHOL 95 08/17/2021 CHOL 117 04/23/2020 LDL 26 08/17/2021 LDL 47 04/23/2020 HDL 31 08/17/2021 HDL 32 04/23/2020 TG 189 08/17/2021 TG 192 04/23/2020 The ASCVD Risk score (Jorge MEDINA, et al., 2019) failed to calculate for the following reasons: The valid total cholesterol range is 130 to 320 mg/dL Albumin/Creat Ratio (mg/g) Date Value 05/01/2021 Not calculated PHARMACOTHERAPY ASSESSMENT/PLAN: 1. Type 2 diabetes mellitus with diabetic neuropathy, with long-term current use of insulin ([facility]) -ICD9: 250.60, 357.2, V58.67, ICD10: E11.40, Z79.4 A1c goal < 7%; not at goal (last A1c 7.8%); SMBG elevated on current regimen; reports fewer s/sxhypoglycemia; denies s/sx hyperglycemia. Patient reports increased incidence of hypoglycemia occurring overnight. Today, will decrease basal insulin dose to prevent hypoglycemia risk. Renal function appropriate for continued use Adjusted Farxiga to 10 mg once daily - to match current dose through PAP Decrease Basaglar 32 units in the morning and 30 units in evening CONTINUE Trulicity 3 mg once weekly CONTINUE Humalog 23 units three times daily before meals + Sliding Scale (1 units for every 50 mg/dL above 150 mg/dL) - DAPAGLIFLOZIN 10 MG TABLET - INSULIN GLARGINE (U-100) 100 UNIT/ML (3 ML) SUBCUTANEOUS PEN Follow up: Patient is scheduled to see PCP team on 07/29/22. Patient to follow up with pharmD on 04/09/22. Patient verbalized understanding of instructions. Cholo Thorpe, Abner, BCACP Primary Care Clinical Pharmacist The majority of the pharmacy visit (> 50%) was spent counseling and/or coordinating care for thepatient. [Telephonic] time was 22 minutes. documented in this encounterLicking [facility]12[facility]22 History of Present illness Narrative* Trev Patino MD - 03/08/2022 10:20 AM EST Chief Complaint Patient presents with: Nausea HPI Lovely Devi is a 76 year old male who presents here today for Complaint(s) of nausea. Nausea constant since Thursday with dry heaves. No vomiting, no fevers, no diarrhea, or constipation.Some nasal congestion. Nothing seems to make the nausea better or worse. Chest pains: states when he walks he gets SOB, wheezing, and chest pains. No dizziness. Rated pain 6/10, off and on. The chest pains is better at this time. He has nitro which he doesn't feel helps. He was seen in ER earlier this week, cardiac evaluation was unremarkable. Hemoglobin was low at 8.6;but this was relatively stable; it was 9.3 in Nov. Increased weight, more SOB, more swelling in legs. Chronic seepage from legs. Takgin lasix 20 mg pills, two pills bid, along with aldactone 25 mg daily. Past medical history, appointments, medications, allergies reviewed. Previous Medical History PAST MEDICAL HISTORY Diagnosis Date ASHD (arteriosclerotic heart disease) 02/19/2015 Atrial fibrillation (HCC) 07/03/2011 Automatic implantable cardiac defibrillator in situ Petit's esophagus with esophagitis 03/01/2015 Benign neoplasm of colon Chronic diarrhea 09/16/2011 Coronary atherosclerosis of unspecified type of vessel, makah or graft s/p [place] in 1985 Diverticulosis of colon (without mention of hemorrhage) Duodenitis without mention of hemorrhage Dysphagia 03/01/2015 Facet arthritis of lumbar region 07/14/2017 GERD (gastroesophageal reflux disease) 06/10/12 Heart attack (HCC) Labyrinthitis 02/05/2010 Neurocardiogenic syncope 03/01/2015 Obesity 09/16/2011 JESSICA treated with BiPAP DME [employer] Other and unspecified hyperlipidemia Other specified forms of chronic ischemic heart disease Paroxysmal ventricular tachycardia Snoring Stroke (HCC) Tinea of nail 01/13/2011 Type 2 diabetes mellitus with st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, with long-term current use of insulin(HCC) 06/15/2017 Unspecified essential hypertension Previous Surgical History PAST SURGICAL HISTORY Procedure Laterality Date COLONOSCOPY FLX DX W/COLLJ SPEC WHEN PFRMD 12/21/2017 Dr. Anthony-repeat 3 years-11/2020 COLONOSCOPY W/BIOPSY SINGLE/MULTIPLE 02/21/2009 ESOPHAGOGASTRODUODENOSCOPY TRANSORAL DIAGNOSTIC EGD ESOPHAGOGASTRODUODENOSCOPY TR[facility]AL DI[facility]NOSTIC [facility]OPHAGOGASTRODUODENOSCOPY TRANSORAL DIAGNOSTIC 05/24/2015 EGD ESOPHAGOGASTRODUODENOSCOPY TRANSORAL DIAGNOSTIC 12/21/2017 Dr. Anthony-repeat 3 years-11/2020 HEART CATHETERIZATION 12/15/2014 [facility] - see scanned documents HEART SURGERY HX 1 stent LEFT HEART CATH,PERCUTANEOUS Cardiac cath, L heart LEFT HEART CATH,PERCUTANEOUS 06/20/2011 Cardiac cath, L heart PAST SURGICAL HISTORY OF ICD/ pacemaker at [facility] PERC TRANSL COR ANGIO Percutaneous Transluminal Coronary Angio Status REMV CATARACT EXTRACAP,INSERT LENS Bilateral 2020 Right corrected in 2020 and left 2018. Family History FAMILY HISTORY Problem Relation Age of Onset Stroke Mother Heart Mother Cancer Father prostate Heart Father Breast Cancer Sister Breast Cancer Sister Diabetes Sister Diabetes Brother Diabetes Brother Patient Allergies ALLERGIES Allergen Reactions Morphine Rocephin [Ceftriaxo* Other: See Comments Hot flashes; redness to skin Current Medications Current Outpatient Medications on File Prior to Visit Medication Sig carvedilol (COREG) 6.25 mg tablet Take 1 tablet by mouth twice daily. benzonatate (TESSALON PERLES) 100 mg capsule Take 1 capsule by mouth three times daily as needed for cough. dapagliflozin (FARXIGA) 5 mg tablet Take 1 tablet by mouth daily with breakfast. Please apply 1 time free voucher: Dia: [id number] PCN: [id number] Group: [id number] ID:[id number] insulin glargine (BASAGLAR KWIKPEN U-100 INSULIN) 100 unit/mL (3 mL) Inject 33 Units subcutaneouslyevery morning AND 33 Units daily at bedtime. Patient Assistance Medication. insulin lispro (HUMALOG KWIKPEN INSULIN) 100 unit/mL Inject 23 Units subcutaneously three times daily before meals. Plus sliding scale as directed ( 1 unit for every 50 mg/dL above 150 mg/dL) gabapentin (NEURONTIN) 300 mg capsule Take 3 capsules by mouth three times daily for 90 days. dulaglutide (TRULICITY) 3 mg/0.5 mL pen injector Inject 3 mg subcutaneously one time a week. lisinopril (ZESTRIL, PRINIVIL) 20 mg tablet Take 1 tablet by mouth once daily. famotidine (PEPCID) 20 mg tablet Take 1 tablet by mouth daily at bedtime. flash glucose scanning reader (FREESTYLE FILI 2 READER) Use to check blood sugar at least four (4)times daily. flash glucose sensor (FREESTYLE FILI 2 SENSOR) kit Apply new sensor every fourteen (14) days to upper arm. clopidogrel (PLAVIX) 75 mg tablet Take 1 tablet by mouth once daily. warfarin (COUMADIN) 3 mg tablet 3 mg every Mon, Wed, Fri; 6 mg all other days rOPINIRole (REQUIP) 0.5 mg tablet Take 2 tablets by mouth daily at bedtime. FLUoxetine (PROZAC) 20 mg capsule Take 1 capsule by mouth once daily. nortriptyline (PAMELOR) 25 mg capsule Take 1 capsule by mouth daily at bedtime. albuterol HFA (PROVENTIL HFA) 90 mcg/actuation inhaler Inhale 2 Puffs as instructed every 4 hours while awake. furosemide (LASIX) 40 mg tablet Take 2 tablets by mouth twice daily. Nkbsb-9-TUD-EPA-Fish Oil (FISH OIL) 1,000 mg (120 mg-180 mg) cap Take 1 capsule by mouth once daily. Insulin Syringe-Needle U-100 (BD ULTRAFINE INSULIN) 1 mL 31 gauge x 5/16 1 Each five times daily. latanoprost (XALATAN) 0.005 % ophthalmic solution Use 1 Drop in both eyes three times daily. colestipol (COLESTID) 1 gram tablet Take 1 g by mouth twice daily. BIPAP Initiate BiPAP @ 24/18 cm of water with humidification. Mask (per patient preference), chin strap, filters, tubing / heated tubing, heated humidity and lifetime supplies. Dx. JESSICA G47.33 327.23 - fax compliance download to [phone] flash glucose sensor (FREESTYLE FILI 14 DAY SENSOR) kit 1 Each four times daily. spironolactone (ALDACTONE) 25 mg tablet Take 1 tablet by mouth once daily. isosorbide mononitrate ER (IMDUR) 30 mg 24 hr tablet Take 60 mg by mouth once daily. blood sugar diagnostic ([employer] BLOOD GLUCOSE SYSTEM) test strip Use as instructed to check blood sugar 3 to 4 times daily DM: yes Insulin: yes DX:11.9 fenofibrate nanocrystallized (TRICOR) 145 mg tablet Take 1 tablet by mouth once daily. pantoprazole DR (PROTONIX) 40 mg tablet Take 40 mg by mouth once daily. Lancets (ONE TOUCH ULTRASOFT LANCETS) lancets Use with OneOnMyBlockuch Glucometer as directed Aspirin 81 mg ORAL Tab Take 1 tablet by mouth once daily. Take with food. CRESTOR 40 MG TAB Take one(1) tablet daily. NITROGLYCERIN 0.3 MG SUBLINGUAL TAB Dissolve 0.4 mg under the tongue. Usual dose for angina is 1 tablet every 5 minutes for maximum of 3 doses in 15 minutes. Current Facility-Administered Medications on File Prior to Visit Medication perflutren lipid microspheres 1.3 mL in NaCl (PF) 0.9% 10 mL injection (DEFINITY) sodium chloride 0.9 % (flush) 10 mL (BD POSIFLUSH) Social History Social History Tobacco Use Smoking status: Former Types: Cigars Quit date: 08/12/2007 Years since quittin.5 Smokeless tobacco: Never Tobacco comments: 2-3 per day Vaping Use Vaping Use: Never used Substance Use Topics Alcohol use: No Drug use: No EXAM: BP 140/90 Pulse 77 Resp 20 Wt 129.6 kg (285 lb 11.2 oz) SpO2 97% BMI 43.44 kg/m General Appearance: Well appearing, alert, in no acute distress, well-hydrated, well nourished. andMorbidly obese. Lungs: Lungs clear to auscultation. No wheezing, rhonchi, rales.. Heart: Positive findings: irregular rhythm. Extremities: venous stasis with seeping zenon. Health Maintenance List SHINGRIX VACCINE(1 of 2) Never done ADVANCE DIRECTIVE DISCUSSION Never done HEMOGLOBIN/HEMATOCRIT due on 02/19/2022 URINE ALBUMIN:CREATININE RATIO due on 05/01/2022 BP CONTROLLED (<130/80) due on 05/01/2022 DIABETIC FOOT EXAM due on 08/09/2022 LDL CHOLESTEROL due on 08/17/2022 DILATED RETINAL EXAM due on 08/19/2022 HBA1C due on 09/04/2022 ANNUAL PCP TEAM CHRONIC DISEASE VISIT due on 01/29/2023 SERUM CREATININE due on 03/06/2023 DTAP,TDAP,TD(3 - Td or Tdap) due on 10/17/2027 INFLUENZA Completed HEPATITIS C SCREENING Completed COVID-19 VACCINE Completed PNEUMOCOCCAL: 65+ Completed Data reviewed Appointment on 03/06/2022 Component Date Value Hemoglobin A1C 03/06/2022 7.9 (A) Estimated Average Glucose 03/06/2022 180 Glucose 03/06/2022 68 (A) BUN 03/06/2022 24 Creatinine 03/06/2022 1.50 (A) Sodium 03/06/2022 141 Potassium 03/06/2022 3.7 Chloride 03/06/2022 103 CO2 03/06/2022 24 Anion Gap 03/06/2022 14 Calcium, Total 03/06/2022 9.0 Estimated Glomerular Alex* 03/06/2022 48 (A) Results Only on 03/05/2022 Component Date Value INR Home CoaguChek 03/05/2022 2.5 Results Only on 02/12/2022 Component Date Value INR Home CoaguChek 02/12/2022 2.6 Results Only on 01/29/2022 Component Date Value INR Home CoaguChek 01/29/2022 2.5 Results Only on 01/22/2022 Component Date Value INR Home CoaguChek 01/22/2022 2.3 Office Visit on 01/21/2022 Component Date Value COVID 19 Result 01/21/2022 SARS-CoV-2 (Agent of COVID-19) Detected by RT-PCR or equivalent method. (A) Influenza A PCR 01/21/2022 Negative for Influenza A by RT-PCR Influenza B PCR 01/21/2022 Negative for Influenza B by RT-PCR Results Only on 01/08/2022 Component Date Value INR Home CoaguChek 01/08/2022 2.4 ASSESSMENT/PLAN: 1. Chronic combined systolic and diastolic congestive heart failure (HCC) - ICD9: 428.42, 428.0, ICD10: I50.42 (primary diagnosis) 2. Acute on chronic systolic congestive heart failure (HCC) - ICD9: 428.23, 428.0, ICD10: I50.23 Increase lasix to 60 mg bid - FUROSEMIDE 20 MG TABLET 3. Type 2 diabetes mellitus with diabetic neuropathy, with long-term current use of insulin (HCC) -ICD9: 250.60, 357.2, V58.67, ICD10: E11.40, Z79.4 Controlled. - Continue current medications 4. Paroxysmal atrial fibrillation (HCC) - ICD9: 427.31, ICD10: I48.0 5. ASHD (arteriosclerotic heart disease) - ICD9: 414.00, ICD10: I25.10 6. Ischemic cardiomyopathy - ICD9: 414.8, ICD10: I25.5 7. Stage 3a chronic kidney disease (HCC) - ICD9: 585.3, ICD10: N18.31 Monitor 8. Anticoagulated on Coumadin - ICD9: V58.61, ICD10: Z79.01 9. Anemia, unspecified type - ICD9: 285.9, ICD10: D64.9 Monitor He is to call next week to let me know how he is doing Will need to follow BMP and CBC Zofran prn for nausea I agree with the Chief Complaint, ROS, and Past Histories independently gathered by the clinical client application support specialist and the remaining scribed note accurately describes my personal service to the patient. Medical Decision Making: Problems: Moderate: 1+ chronic illnesses with change and 2+ stable chronic illnesses Data: Unique test result(s) reviewed: 2 Risk: Moderate: Drug management Medical Decision Making Level: 4 - Moderate Trev Patino MD The documentation for this note was completed by May Martinez Ma acting as scribe for Trev Patino MD. March 08, 2022 10:09 AM. May Juan Landa documented in [facility] encounterL[facility]12-[facility] History of Present illness Narrative* Kalia Ambrocio RN - 03/07/2022 10:38 AM EST PRIMARY CARE COORDINATION QUICK NOTE Provider Action/FYI Patient seen at [place] [facility] on 03/05. Sent by [facility]. Patient reports he was seen at [place] [facility] for intermittent cp over past 2 weeks. Complaints of dyspnea, nausea, cough lower extremity swelling. Denies any fever. Tolerating liquids, water, 7 up. Able to eat small meals without vomiting however challenging givenhis nausea. Covid negative per patient Patient asking if anything can be prescribed to help with the nausea? Has ER follow up with PCP in am 03/08 Patient identified by name and date . * Ashley Zamarripa Population Health Navigator - 03/07/2022 10:26 AM EST POPULATION HEALTH NAVIGATION OUTREACH Action/CARLITOS Spoke to patient and scheduled pcp appt on 03-08-22. No availability today. Dragan Ambrocio- Patient requesting antinausaous medication until tomorrow appt, please advise patient Pt identified by name and : YES, via phone Outreach Outcome/Action Spoke to patient or caregiver: Patient scheduled Did you use a PCP flex slot to schedule this appointment? No Reason for Outreach Community Monitoring [place] Payer: Payor: MEDICARE / Plan: MEDICARE A AND B / Product Type: Medicare / Care Gap Reviewed:: Follow-up appointment Reminder: Reminder note to check Health Maintenance for items below Health Maintenance items due: SHINGRIX VACCINE(1 of 2) Never done ADVANCE DIRECTIVE DISCUSSION Never done HEMOGLOBIN/HEMATOCRIT due on 02/19/2022 Message Sent to Practice: No Navigation Signature: Ashley Zamarripa Population Health Navigator March 07, 2022 10:26 AM * Kalia Ambrocio RN - 03/07/2022 10:05 AM EST PRIMARY CARE COORDINATION QUICK NOTE Provider Action/FYI Follow up with patient. Reports he is still feeling very nauseated. Taking maria g seltzer and drinking 7 up. Feeling no better than when he presented to [place] [facility]. Please attempt to get patient scheduled today to urgent visit if possible Patient identified by name and date . * Kalia Ambrocio RN - 03/06/2022 4:43 PM EST Nadia CDM Escalation Follow Up Action/FYI: Patient reports he was seen at [place] [facility] for intermittent cp over past 2 weeks. Complaints of dyspnea, nausea, cough lower extremity swelling. Denies any fever. Contact made with patient: Patient identified by name and Discussed care with patient Patient Escalated to Virtualist on: 03/05 Reason for Escalation: Hx CHF Increase in SOB with minimal and lying down Swelling in feet is worse then baseline Takes Lasix 80 mg daily Denies fever, chest pain, abdominal pain, N/V/D. Virtualist Intervention: Assessment/Plan: ASSESSMENT/PLAN: 1. SOB (shortness of breath) - ICD9: 786.05, ICD10: R06.02 - Urgent Dispatch unavailable in this patient's area, I recommended he go to the ER and he agreed Disposition: Patient instructed to go to the ED Disposition: Patient stable no further interventions * Kalia Ambrocio RN - 03/06/2022 9:52 AM EST inSight CDM Escalation Follow Up Action/FYI: Contact made with patient: Left Message: My name is Kalia Ambrocio RN, from the [facility]. I am calling regarding your recent visit with our Virtual Provider. Sorry that I am not able to speak with you. If you have a problem that needs to addressed by your Physician, please contact your Primary Care Provider's office. - END OUTREACH documented in this encounterLicking Memorial Hospital12-08-2022 Miscellaneous Notes* Telephone Encounter - Cholo Thorpe RPh - 03/06/2022 12:15 PM EST Patient presents to [facility], would like to have labs drawn to recheck A1c. Current orders are ordered for July 2022, added orders to be drawn today. Cholo Thorpe, PharmD, BCACP Primary Care Clinical Pharmacist documented in this encounterLicking Memorial Hospital12-07-2022 History of Present illness Narrative* Lula Monzon APRN.CNP - 03/05/2022 6:44 PM EST Virtualist Distance Health Note (Community monitoring/CC HC/H@[facility] escalations) Adult seen for Monitoring Track: Chronic Disease Management Contacted by phone, [email or web address], Slidelyo, Zoom, Doximity, other: Patient consents to phone visit, patient is only person present for phone visit History of present illness: Hx CHF Increase in SOB with minimal and lying down Swelling in feet is worse then baseline Takes Lasix 80 mg daily Denies fever, chest pain, abdominal pain, N/V/D. Past medical history, past surgical history, family history and social history reviewed and updatedas indicated in EMR. REVIEW OF SYSTEMS: Review of Systems VITAL SIGNS: (if available) There were no vitals taken for this visit. Physical Exam (if video visit was performed) Physical Exam Assessment/Plan: ASSESSMENT/PLAN: 1. SOB (shortness of breath) - ICD9: 786.05, ICD10: R06.02 - Urgent Dispatch unavailable in this patient's area, I recommended he go to the ER and he agreed Disposition: Patient instructed to go to the ED A total of 20 minutes was spent providing medical care using telemedicine. Remove COVID19 association Signed in as Primary Virtualist, Secondary Virtualist, or [facility] Telehealth provider: Primary Lovely Mathew Ruyjenny has consented to this telephone encounter. Persons Present: patient SIGNATURE: Lula Monzon APRN.CNP PATIENT NAME: Lovely Devi DATE: March 05, 2022 documented in this encounterLicking Memorial Hospital12-07-2022 History of Present illness Narrative* Becki Pereiar RN - 03/05/2022 6:18 PM EST INSIGHT CDM ESCALATION Provider Action/FYI: Patient with history Heart failure reports increase shortness of breath with minimal activity, shortness of breath when lying down, swelling of both feet (difficult to get shoes on) stated pulse ox 99% states weight 278 Has Lasix in the home. Agrees with virtualist intervention Message received via: InSight - Yes contact made with patient ACTION TAKEN: Based on director of estate, the following disposition is advised: Urgent / [place]: [place] [phone] and indicate 'CDM patient', MRN, Patient Name, Patient Concern, and patient's preferred method of contact (telephone, [email or web address], Slidelyo), your name, your contact number. Informed patient that you recommend further assessment from a provider to review symptoms. I have sent a page for the provider to contact you today. If you haven't heard from that provider and still have concerns, please contact you PCP's office right away. Indicated CDM patient and symptoms in the FYI box and sent alpha page to Virtualist to to contact the patient.Route as 'high priority' to Virtualist nuclear weapons mechanical specialist - End outreach. documented in this encounterLicking [facility] Hospital12-07-2022 Miscellaneous Notes* Telephone Encounter - Trev Patino MD - 03/05/2022 2:52 PM EST Forms done Trev Patino MD * Telephone Encounter - May Martinez Ma - 03/03/2022 4:42 PM EST Forms received back from pt and on Dr. Patino's desk. Will fax once completed by provider. May Martinez Ma * Telephone Encounter - Cholo Thorpe RPh - 02/13/2022 4:54 PM EST PAP technicians completed application. Mailing application to patient to sign patient section. Once patient has signed, he will return application to PCP team for PCP signature and faxing to [facility] program. Cholo Thorpe PharmD, BCACP Primary Care Clinical Pharmacist documented in this encounterLicking Memorial Hospital12-07-2022 Miscellaneous Notes* Telephone Encounter - Kelsie Cerrato RPh - 03/05/2022 2:22 PM EST Lovely Mathew Ruyjenny was sent a MyC msg and reminded to test INR today or as soon as possible. Kelsie Cerrato PharmD [facility] * Telephone Encounter - Kelise Cerrato RPh - 02/26/2022 3:47 PM EST Patient was due to test INR today will continue to monitor for results. Kelsie Cerrato PharmD [facility] documented in this encounterLicking [facility] Hospital11-16-2022 Miscellaneous Notes* Telephone Encounter - Cindi Eastman LPN - 02/12/2022 2:13 PM EST Emiliana with [employer] called and states they received form for pt put the H & P was not signed. Pt was identified with name and date of . Reprinted and faxed the electronically signed copy of the H & P from 12/12/21. Faxed to [phone]. Done. Cindi Eastman LPN documented in this encounterLicking Memorial Hospital11-16-2022 Miscellaneous Notes* Telephone Encounter - Kelsie Cerrato RPh - 02/12/2022 1:41 PM EST Uguru message sent for therapeutic INR. documented in this encounterLicking Memorial Hospital11-16-2022 Miscellaneous Notes* Telephone Encounter - Day Richardson Ma - 02/12/2022 8:41 AM EST Order/Letter signed and faxed to number below. Day Richardson Ma * Telephone Encounter - Day Richardson Ma - 02/11/2022 5:05 PM EST Letter routed back to PCP to sign. Once signed fax to information below. Day Richardson Ma * Telephone Encounter - Trev Patino MD - 02/11/2022 5:00 PM EST Letter printed and signed May fax to the [facility] at [phone] Trev Patino MD * Telephone Encounter - Vera Watson RN - 02/07/2022 12:[address] Patino, Please sign the prior authorization form to update the patient's home INR meter. The PAF can be found under the letters tab in the patient's chart. Under comments it will show HomeINR meter PAF. The PAF may be printed from there and once signed can be faxed back to the Pharmacy [facility] at [phone]. If you have any questions about the home INR program, also known as the Pharmacist Managed Telemanagement Anticoagulation (PAC) service, please contact a member of our pharmacy team at [phone] Option #2. Thank you, Meaghan Watson RN [facility] documented in this encounterLicking Memorial Hospital11-11-2022 Miscellaneous Notes* Telephone Encounter - Vera Watson RN - 02/07/2022 12:23 PM EST PAC received an updated referral for the patient. PT INR (no units) Date Value 07/03/2021 2.7 (biotel) 06/19/2021 2.6 (biotel) 06/05/2021 3.3 (biotel) INR Home CoaguChek (no units) Date Value 01/29/2022 2.5 01/22/2022 2.3 01/08/2022 2.4 Updated anticoag navigator. Meaghan Watson RN [facility] * Telephone Encounter - Trev Patino MD - 02/05/2022 5:40 PM EST Order filed Thanks Trev Patino MD * Telephone Encounter - Varsha Moss RPh - 02/05/2022 4:44 PM EST Hi Deanne Reardonry Quincy Devi [id number] was originally referred to the Pharmacy Anticoagulation [facility] by Dr. Keyes. As the patient's current PCP would you agree to serve as referring physician for our ongoing anticoagulation follow up? If yes please place a new referral to Anticoagulation/Coumadin Clinic Pharm (order #[id number].) Thank you, Varsha Moss RPh documented in this encounterLicking Memorial Hospital11-07-2022 Miscellaneous Notes* Telephone Encounter - May Martinez Ma - 02/03/2022 1:35 PM EST Faxed. May Martinez Ma * Telephone Encounter - May Martinez Ma - 01/30/2022 3:57 PM EDT Patient has been identified by name and date of : Yes Type of form: diabetes supply form Form received via: Fax When form is completed, fax form to fax number provided. FAX TO [employer] [phone] Form has been forwarded to: Provider's desk. Provider name: Sukumar Martinez Ma documented in this encounterL[facility]11-[facility]22 Miscellaneous Notes* Telephone Encounter - Cholo Thorpe RPh - 01/30/2022 5:13 PM EDT Returned call to patient. Discussed renewal process for [facility] before 03/29/22. Will coordinate to mail forms to patient for renewal. Lisa HancockD, BCACP Primary Care Clinical Pharmacist * Telephone Encounter - Nadira Murillo RN - 01/29/2022 2:50 PM EDT Patient calling to ask about annual [facility] forms for Insulin. Nadira Murillo RN documented in this encounterLicking [facility] Hospital11-02-2022 History of Present illness Narrative* Trev Patino MD - 01/29/2022 1:20 PM EDT Chief Complaint Patient presents with: 6 Month Exam HPI Lovely Devi is a 76 year old male who presents here today for est care. Former pt of Dr. Keyes and then Emery Null. Here with his , Ila. He does have an advanced directive. Pt states that he has not heard anything back about his power chair, paperwork was faxed 01/24, advised pt to call the company and check on that. If anything further is needed to notify office. [employer] pt assist forms were faxed to pt assistance 01/13/22, advised pt if he does not receive via mail in the next few weeks to notify office. He states that all his insulin gets mailed to his home directly. He had the covid and flu vaccine. Pt had COVID a few weeks ago, he took a home test this morning which was negative. Feels good otherthan still has cough and SOB. Cough is mostly dry, occ will cough up some phlegm, occurs anytime, does not seem to be worse in AM or PM. He used Tessalon Perles for cough in the past which helped. No bowel, Gi, or urinary issues. He feels that the stool is harder to pass but is having a BM daily. Does not use any stool softeners or fiber supplements. Does not get up at night to urinate. GERD: sx controlled, unsure if he is on Pepcid so will check meds when he gets home. Taking Protonix 40 mg daily. A-fib: INR managed by Pharmacists. DM: Checking BS 4 x per day, FBS around 180. Denies much issues with sugars dropping too low, unsure what causes him to have lows. He does not have any numbness/tingling/burning in feet. Taking Farxiga 5 mg daily, Basaglar 33 units BID, Humalog 23 units TID plus sliding scale, Trulicity 3 mg weekly. Was following with Cholo, Pharmacist. Follows with with [facility]. Eye doctor is Dr. Garduno. He gets his Basaglar, humalog and trulicity through [facility]. He has a [employer] Fili he uses. HTN: Does check BP at home, readings 120/80. Denies any chest pains, dizziness, or unusual SOB. Taking Lisinopril 20 mg daily and Coreg 6.25 mg pills BID, Imdur 60 mg daily, Aldactone 25 mg daily. Follows with Cardio, Dr. Perry. JESSICA: Using BiPAP at 24/18 cm of water, wears every night. He feels he is doing well on it. [facility]. Neuropathy: Taking Gabapentin 300 mg 3 pills TID. Lipid: Tries to watch diet. Unable to do any exercise. Taking Plavix 75 mg daily (unsure if he is taking, will check meds when he gets home), Crestor 40 mg daily and Tricor 145 mg daily. Also taking 81 mg aspirin daily. Edema: legs and feet; does not improve over night much. Does take Lasix 40 mg, 2 pills BID. RLS: Controlled on Requip 0.5 mg 2 pills at bedtime and Nortriptyline 25 mg daily at bedtime. TORO/Depression: Doing well on Prozac 20 mg daily and Nortriptyline 25 mg daily. He has occ bad days, but feels he has more good then bad. Has had 6 falls in the last year, uses a cane and wheelchair to get around. Falls Risk Intake: Patient age 65 or over, unsteady, or was advised to use special equipment to aid ambulation (i.e., cane or walker)? Yes Has the patient had two falls in the past year, or one with injury? Yes Does the patient need to use their hands when pushing up from chair, or hold onto furniture when ambulating at home? Yes Is the patient worried about falling? Yes Please inform patient that answering Yes to one or more of the questions above can increase theirrisk of falling Patient is at greater risk for falls. Falls Instruction: Teaching document below - reviewed and given to patient [facility] - FALLS Prevention Safety Plan [facility] - Preventing Falls and Maintaining Balance Past medical history, appointments, medications, allergies reviewed. Previous Medical History PAST MEDICAL HISTORY Diagnosis Date ASHD (arteriosclerotic heart disease) 02/19/2015 Atrial fibrillation (HCC) 07/03/2011 Automatic implantable cardiac defibrillator in situ Petit's esophagus with esophagitis 03/01/2015 Benign neoplasm of colon Chronic diarrhea 09/16/2011 Coronary atherosclerosis of unspecified type of vessel, makah or graft s/p [place] in 1985 Diverticulosis of colon (without mention of hemorrhage) Duodenitis without mention of hemorrhage Dysphagia 03/01/2015 Facet arthritis of lumbar region 07/14/2017 GERD (gastroesophageal reflux disease) 06/10/12 Heart attack (HCC) Labyrinthitis 02/05/2010 Neurocardiogenic syncope 03/01/2015 Obesity 09/16/2011 JESSICA treated with BiPAP DME [facility] Other and unspecified hyperlipidemia Other specified forms of chronic ischemic heart disease Paroxysmal ventricular tachycardia Snoring Stroke (HCC) Tinea of nail 01/13/2011 Type 2 diabetes mellitus with st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, with long-term current use of insulin(HCC) 06/15/2017 Unspecified essential hypertension Previous Surgical History PAST SURGICAL HISTORY Procedure Laterality Date COLONOSCOPY FLX DX W/COLLJ SPEC WHEN PFRMD 12/21/2017 Dr. Anthony-repeat 3 years-11/2020 COLONOSCOPY W/BIOPSY SINGLE/MULTIPLE 02/21/2009 ESOPHAGOGASTRODUODENOSCOPY TRANSORAL DIAGNOSTIC EGD ESOPHAGOGASTRODUODENOSCOPY TRANSORAL DIAGNOSTIC 02/16/2008 EGD inpt [facility] H-pylori negative ESOPHAGOGASTRODUODENOSCOPY TRANSORAL DIAGNOSTIC 05/24/2015 EGD ESOPHAGOGASTRODUODENOSCOPY TRANSORAL DIAGNOSTIC 12/21/2017 Dr. Anthony-repeat 3 years-11/2020 HEART CATHETERIZATION 12/15/2014 [facility] - see scanned documents HEART SURGERY HX 1 stent LEFT HEART CATH,PERCUTANEOUS Cardiac cath, L heart LEFT HEART CATH,PERCUTANEOUS 06/20/2011 Cardiac cath, L heart PAST SURGICAL HISTORY OF ICD/ pacemaker at [facility] PERC TRANSL COR ANGIO Percutaneous Transluminal Coronary Angio Status REMV CATARACT EXTRACAP,INSERT LENS Bilateral 2020 Right corrected in 2020 and left 2018. Family History FAMILY HISTORY Problem Relation Age of Onset Stroke Mother Heart Mother Cancer Father prostate Heart Father Breast Cancer Sister Breast Cancer Sister Diabetes Sister Diabetes Brother Diabetes Brother Patient Allergies ALLERGIES Allergen Reactions Morphine Rocephin [Ceftriaxo* Other: See Comments Hot flashes; redness to skin Current Medications Current Outpatient Medications on File Prior to Visit Medication Sig dapagliflozin (FARXIGA) 5 mg tablet Take 1 tablet by mouth daily with breakfast. Please apply 1 time free voucher: RxBin: [id number] PCN: [id number] Group: [id number] ID:[id number] insulin glargine (BASAGLAR KWIKPEN U-100 INSULIN) 100 unit/mL (3 mL) Inject 33 Units subcutaneouslyevery morning AND 33 Units daily at bedtime. Patient Assistance Medication. insulin lispro (HUMALOG KWIKPEN INSULIN) 100 unit/mL Inject 23 Units subcutaneously three times daily before meals. Plus sliding scale as directed ( 1 unit for every 50 mg/dL above 150 mg/dL) gabapentin (NEURONTIN) 300 mg capsule Take 3 capsules by mouth three times daily for 90 days. dulaglutide (TRULICITY) 3 mg/0.5 mL pen injector Inject 3 mg subcutaneously one time a week. lisinopril (ZESTRIL, PRINIVIL) 20 mg tablet Take 1 tablet by mouth once daily. famotidine (PEPCID) 20 mg tablet Take 1 tablet by mouth daily at bedtime. (Patient not taking: Reported on 12/12/2021) flash glucose scanning reader (FREESTYLE FILI 2 READER) Use to check blood sugar at least four (4)times daily. flash glucose sensor (FREESTYLE FILI 2 SENSOR) kit Apply new sensor every fourteen (14) days to upper arm. clopidogrel (PLAVIX) 75 mg tablet Take 1 tablet by mouth once daily. (Patient not taking: Reported on 12/12/2021) warfarin (COUMADIN) 3 mg tablet 3 mg every Mon, Wed, Fri; 6 mg all other days rOPINIRole (REQUIP) 0.5 mg tablet Take 2 tablets by mouth daily at bedtime. benzonatate (TESSALON PERLES) 100 mg capsule Take 2 capsules by mouth three times daily as needed. (Patient not taking: Reported on 07/17/2021 ) FLUoxetine (PROZAC) 20 mg capsule Take 1 capsule by mouth once daily. nortriptyline (PAMELOR) 25 mg capsule Take 1 capsule by mouth daily at bedtime. albuterol HFA (PROVENTIL HFA) 90 mcg/actuation inhaler Inhale 2 Puffs as instructed every 4 hours while awake. guaiFENesin (MUCINEX) 600 mg 12 hr tablet Take 1 tablet by mouth twice daily. (Patient not taking: Reported on 12/12/2021) benzonatate (TESSALON PERLES) 100 mg capsule Take 2 capsules by mouth twice daily as needed for cough. (Patient not taking: Reported on 11/25/2021) furosemide (LASIX) 40 mg tablet Take 2 tablets by mouth twice daily. Lzwgk-7-SHN-EPA-Fish Oil (FISH OIL) 1,000 mg (120 mg-180 mg) cap Take 1 capsule by mouth once daily. Insulin Syringe-Needle U-100 (BD ULTRAFINE INSULIN) 1 mL 31 gauge x 5/16 1 Each five times daily. latanoprost (XALATAN) 0.005 % ophthalmic solution Use 1 Drop in both eyes three times daily. colestipol (COLESTID) 1 gram tablet Take 1 g by mouth twice daily. carvedilol (COREG) 3.125 mg tablet Take 2 tablets by mouth twice daily. for one week starting on 06/20/16 then will be taking 6.25 x 2 daily . BIPAP Initiate BiPAP @ 24/18 cm of water with humidification. Mask (per patient preference), chin strap, filters, tubing / heated tubing, heated humidity and lifetime supplies. Dx. JESSICA G47.33 327.23 - fax compliance download to [phone] flash glucose sensor (FREESTYLE FILI 14 DAY SENSOR) kit 1 Each four times daily. spironolactone (ALDACTONE) 25 mg tablet Take 1 tablet by mouth once daily. isosorbide mononitrate ER (IMDUR) 30 mg 24 hr tablet Take 60 mg by mouth once daily. blood sugar diagnostic ([employer] BLOOD GLUCOSE SYSTEM) test strip Use as instructed to check blood sugar 3 to 4 times daily DM: yes Insulin: yes DX:11.9 fenofibrate nanocrystallized (TRICOR) 145 mg tablet Take 1 tablet by mouth once daily. pantoprazole DR (PROTONIX) 40 mg tablet Take 40 mg by mouth once daily. Lancets (ONE TOUCH ULTRASOFT LANCETS) lancets Use with OneOnMyBlockuch Glucometer as directed Aspirin 81 mg ORAL Tab Take 1 tablet by mouth once daily. Take with food. CRESTOR 40 MG TAB Take one(1) tablet daily. NITROGLYCERIN 0.3 MG SUBLINGUAL TAB Dissolve 0.4 mg under the tongue. Usual dose for angina is 1 tablet every 5 minutes for maximum of 3 doses in 15 minutes. Current Facility-Administered Medications on File Prior to Visit Medication perflutren lipid microspheres 1.3 mL in NaCl (PF) 0.9% 10 mL injection (DEFINITY) sodium chloride 0.9 % (flush) 10 mL (BD POSIFLUSH) Social History Social History Tobacco Use Smoking status: Former Types: Cigars Quit date: 08/12/2007 Years since quittin.4 Smokeless tobacco: Never Tobacco comments: 2-3 per day Vaping Use Vaping Use: Never used Substance Use Topics Alcohol use: No Drug use: No EXAM: BP 120/80 Pulse 78 Resp 16 Ht 172.7 cm (5' 8 ) Wt 125.4 kg (276 lb 8 oz) SpO2 96% BMI 42.04 kg/m General Appearance: Well appearing, alert, in no acute distress, well-hydrated, well nourished. andMorbidly obese. Lungs: Lungs clear to auscultation. No wheezing, rhonchi, rales.. Heart: RRR without murmur, gallop, or rubs. No ectopy. Extremities: zenon lower leg edema. Health Maintenance List SHINGRIX VACCINE(1 of 2) Never done ADVANCE DIRECTIVE DISCUSSION Never done DILATED RETINAL EXAM due on 08/06/2021 DIABETIC FOOT EXAM due on 11/28/2021 SERUM CREATININE due on 02/19/2022 HEMOGLOBIN/HEMATOCRIT due on 02/19/2022 URINE ALBUMIN:CREATININE RATIO due on 05/01/2022 HBA1C due on 05/22/2022 LDL CHOLESTEROL due on 08/17/2022 ANNUAL PCP TEAM CHRONIC DISEASE VISIT due on 12/12/2022 BP CONTROLLED (<130/80) due on 12/12/2022 DTAP,TDAP,TD(3 - Td or Tdap) due on 10/17/2027 INFLUENZA Completed HEPATITIS C SCREENING Completed COVID-19 VACCINE Completed PNEUMOCOCCAL: 65+ Completed Data reviewed None ASSESSMENT/PLAN: 1. Type 2 diabetes mellitus with diabetic neuropathy, with long-term current use of insulin (HCC) -ICD9: 250.60, 357.2, V58.67, ICD10: E11.40, Z79.4 (primary diagnosis) Controlled. - Continue current medications 2. Restless leg syndrome - ICD9: 333.94, ICD10: G25.81 Continue current medications. 3. Essential hypertension - ICD9: 401.9, ICD10: I10 - good control - Continue current medication(s) - Recommended regular aerobic exercise. - Recommend home blood pressure monitoring, to bring results in on next visit - Discussed need and benefit for weight loss. - Goal of BP <140/90 4. Hyperlipidemia LDL goal <100 - ICD9: 272.4, ICD10: E78.5 - good control - Continue current medication. 5. ASHD (arteriosclerotic heart disease) - ICD9: 414.00, ICD10: I25.10 6. Atrial flutter, unspecified type (HCC) - ICD9: 427.32, ICD10: I48.92 7. 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 Chronic combined systolic and diastolic congestive heart failure (HCC) - ICD9: 428.42, 428.0, ICD10: I50.42 9. Gastroesophageal reflux disease, unspecified whether esophagitis present - ICD9: 530.81, ICD10: K21.9 10. JESSICA (obstructive sleep apnea) - ICD9: 327.23, ICD10: G47.33 11. Class 3 severe obesity with serious comorbidity and body mass index (BMI) of 40.0 to 44.9 in adult, unspecified obesity type (HCC) - ICD9: 278.01, V85.41, ICD10: E66.01, Z68.41 12. At moderate risk for fall - ICD9: V15.88, ICD10: Z91.81 13. Acute cough - ICD9: 786.2, ICD10: R05.1 Abraham grace Follow up in 6 months with fasting labs prior. I agree with the Chief Complaint, ROS, and Past Histories independently gathered by the clinical client application support specialist and the remaining scribed note accurately describes my personal service to the patient. Medical Decision Making: Problems: Moderate: 2+ stable chronic illnesses Data: Unique test result(s) reviewed: 3+ Unique test(s) ordered: 3+ Risk: Moderate: Drug management Medical Decision Making Level: 4 - Moderate Trev Patino MD The documentation for this note was completed by May Martinez Ma acting as scribe for Trev Patino MD. January 29, 2022 1:34 PM. May Martinez Ma documented in this encounterLicking [facility]11-02-2022 Miscellaneous Notes* Telephone Encounter - Kelsie Cerrato RPh - 01/29/2022 11:12 AM EDT Advanced Voice Recognition Systemshart message sent for therapeutic INR. documented in this encounterLicking [facility] Hospital10-28-2022 Miscellaneous Notes* Telephone Encounter - Ila Almanza LPN - 01/24/2022 11:47 AM EDT Refaxed with date completed. Ila Almanza LPN * Telephone Encounter - Cindi Esatman LPN - 01/24/2022 11:36 AM EDT Emiliana with [employer] called and states they got the order for a power wheelchair with accessories but it was not dated. Please date this and fax back. Patient has been identified by name and date of : Yes Type of form: order for power wheelchair with accessories Form received via: Fax When form is completed, fax form to fax number provided.[phone] Form has been forwarded to: Nurse Cindi Eastman LPN documented in this encounterLicking [facility] Hospital10-27-2022 Miscellaneous Notes* Telephone Encounter - Day Richardson Ma - 01/23/2022 11:28 AM EDT Noted, pt + for Covlillian on 01/22/22. Will watch for Ethan to drop off CGM. Day Richardson Ma * Telephone Encounter - Cholo Thorpe RPh - 01/23/2022 10:58 AM EDT Patient currently using Fili 14 day reader with sensors. He would like to switch to Fili 2 but his DME can only provide the Fili 2 sensors. Patient cannot afford to pay for Fili 2 reader out of pocket and insurance reports its too soon for new meter as they recently covered the Fili 14 <5 years ago. CDE Ethan Gilliland is able to provide patient with Fili 2 reader from office supply. Patient hasPCP visit on 01/29. CDE will drop off sample reader on 01/29 to PCP office to be given to patient. Thanks! Cholo Thorpe RPh documented in this encounterLicking [facility] Hospital10-27-2022 Miscellaneous Notes* Telephone Encounter - Violetta Sandhu Miguel Angel, [facility] - 01/23/2022 9:29 AM EDT [facility] Anticoagulation Episode Summary Anticoagulation Care Providers Provider Role Specialty Phone number Gilbert Keyes III, MD Family Medicine Lovely Devi is a 76 year old year old male patient being evaluated today for a Telemanagement visit. Patient is currently on the following anticoagulant(s) Warfarin. Labs PT INR (no units) Date Value 07/03/2021 2.7 (biotel) 06/19/2021 2.6 (biotel) 06/05/2021 3.3 (biotel) INR Home CoaguChek (no units) Date Value 01/22/2022 2.3 01/08/2022 2.4 12/26/2021 2.4 Hemoglobin (g/dL) Date Value 02/19/2021 11.3 Hematocrit (%) Date Value 02/19/2021 37.1 Platelet Count (k/uL) Date Value 02/19/2021 163 Creatinine (mg/dL) Date Value 02/19/2021 1.40 09/21/2020 1.74 09/14/2020 1.82 Bilirubin, Total (mg/dL) Date Value 02/19/2021 0.4 ALT (U/L) Date Value 02/19/2021 46 AST (U/L) Date Value 02/19/2021 41 CrCl cannot be calculated (Patient's most recent lab result is older than the maximum 180 days allowed.). ALLERGIES Allergen Reactions Morphine Rocephin [Ceftriaxo* Other: See Comments Hot flashes; redness to skin Indication for Warfarin: Paroxysmal atrial fibrillation (hcc) Anticoagulated on coumadin Anticoagulation Episode Summary Current INR goal: 2.0-3.0 Assessment: INR result of 2.3 is therapeutic Pt will be receiving monoclonal antibody infusion for COVID on 01/24/22 Plan: Current Warfarin Dosing As of 01/22/2022 Full warfarin instructions: 3 mg every Mon, Wed, Fri; 6 mg all other days Called and spoke to patient/caregiver Advised patient to continue current weekly dose as noted above Next home INR check scheduled on 01/29/2022 Patient verbalizes understanding of the plan. Patient denies need for refills. Violetta Michelle [facility] Clinical Pharmacist, Pharmacy Anticoagulation Clinic Pharmacy Anticoagulation Clinic Pager: [phone]. * Telephone Encounter - Kelsie Cerrato RPh - 01/22/2022 11:32 AM EDT Patient was due to test INR today will continue to monitor for results. Of note - he is recently covid-19 positive and is set to receive monoclonal antibody treatment on 01/24. Kelsie Cerrato PharmD Pharmacy Anticoagulation Clinic documented in this encounterLicking [facility] Hospital10-25-2022 Instructions* Patient Instructions* Becky Mccarthy APRN.PUPPET MAKER - 01/21/2022 2:06 PM EDT Fact Sheet for Patients, Parents, and Caregivers Emergency Use Authorization (EUA) of Bebtelovimab for Coronavirus Disease 2019 (COVID-19) You are being given this Fact Sheet because your healthcare provider believes it is necessary to provide you or your child with bebtelovimab for the treatment of abra-ms-ihaonimb coronavirus disease 2019 (COVID-19) in adults and children (12 years of age and older weighing at least 88 pounds [40 kg]) with positive results of direct severe acute respiratory syndrome coronavirus 2 (SARS-CoV-2) viral testing, and who are at high risk for progression to severe COVID-19, including hospitalization ordeath, and for whom other COVID-19 treatment options approved or authorized by FDA are not available or clinically appropriate. This Fact Sheet contains information to help you understand the potential risks and potential benefits of receiving bebtelovimab, which you or your child have received or may receive. The U.S. Food and Drug Administration (FDA) has issued an Emergency Use Authorization (EUA) to makebebtelovimab available during the COVID-19 pandemic (for more details about an EUA please see What is an Emergency Use Authorization? at the end of this document). Bebtelovimab is not an FDA-approved medicine in the [place]. Read this Fact Sheet for information about bebtelovimab. Talk to your healthcare provider about your options or if you have any questions. It is your choice for you or your child to receive bebtelovimab or stop it at any time. What is COVID-19? COVID-19 is caused by a virus called a coronavirus (SARS-CoV-2). You can get COVID-19 through contact with another person who has the virus. COVID-19 illnesses have ranged from very mild (including some with no reported symptoms) to severe, including illness resulting in . While information sofar suggests that most COVID-19 illness is mild, serious illness can happen and may cause some of your or your child s other medical conditions to become worse. Older people and people of all ages with severe, or long lasting (chronic) medical conditions like heart disease, lung disease, diabetes, and obesity, for example, seem to be at higher risk of being hospitalized for COVID-19. Older age, with or without other conditions, also places people at higher risk of being hospitalized for COVID-19. What is bebtelovimab? Bebtelovimab is an investigational medicine used for the treatment of onay-fx-llabazmd coronavirus disease 2019 (COVID-19) in adults and children (12 years of age and older weighing at least 88 pounds [40 kg]): with positive results of direct SARS-CoV-2 viral testing, and who are at high risk for progression to severe COVID-19, including hospitalization or , and for whom other COVID-19 treatment options approved or authorized by FDA are not available or clinically appropriate. There is limited information known about the safety and effectiveness of using bebtelovimab for thetreatment of ooru-ml-mlbfmfvh COVID-19. For more information on EUA, see the What is an Emergency Use Authorization (EUA)? section at the end of this Fact Sheet. Bebtelovimab is not authorized for use in people who: are likely to be infected with a SARS-CoV-2 variant that is not able to be treated by bebtelovimab based on the circulating variants in your area (ask your health care provider about FDA and CDC s latest information on circulating variants by geographic area), or are hospitalized due to COVID-19, or require oxygen therapy and/or respiratory support due to COVID-19, or require an increase in baseline oxygen flow rate and/or respiratory support due to COVID-19 and areon chronic oxygen therapy and/or respiratory support due to underlying [id number] related comorbidity. What should I tell my healthcare provider before I or my child receive bebtelovimab? Tell your healthcare provider about all your or your child s medical conditions including if you oryour child: Have any allergies Are or plan to become Are or plan to breastfeed Have any serious illnesses Are taking any medicines (prescription, and uuog-gzo-tiptutd, vitamins, or herbal products) How will I or my child receive bebtelovimab? Bebtelovimab will be given as an injection through a vein (intravenously or IV) over at least 30 seconds. You will be observed by your healthcare provider for at least 1 hour after you receive bebtelovimab. What are the important possible side effects of bebtelovimab? Allergic reactions. Allergic reactions can happen during and after injection with bebtelovimab. Tell your healthcare provider right away if you or your child develop any of the following signs and symptoms of allergic reaction: fever, difficulty breathing, low oxygen level in your blood, chills, tiredness, fast or slow heart rate, chest discomfort or pain, weakness, confusion, nausea, headache, shortness of breath, low or high blood pressure, wheezing, swelling of your lips, face, or throat, rash including hives, itching, muscle aches, dizziness, feeling faint, and sweating. These reactions may be severe or life threatening. The side effects of receiving any medicine by vein may include brief pain, bleeding, bruising of the skin, soreness, swelling, and possible infection at the injection site. These are not all the possible side effects of bebtelovimab. Not many people have received bebtelovimab. Serious and unexpected side effects may happen. All of the risks are not known at this time. It is possible that bebtelovimab could interfere with your body's own ability to fight off a futureinfection of SARS-CoV-2. Similarly, bebtelovimab may reduce the body s immune response to a vaccinefor SARS-CoV-2. Talk to your healthcare provider if you have any questions. What other treatment choices are there? Like bebtelovimab, FDA may allow for the emergency use of other medicines to treat people with COVID-19. Go to https://www.fda.gov/uoyyrudqw-dlslofjnkpmh-vie-response/pjx-akzmb-ufonwbuzvh-and -policy-framework/rbdojmekm-dmd-uyhlcdczedqki for information on the emergency use of other medicines that are authorized by FDA to treat people with COVID-19. Your healthcare provider may talk with you aboutclinical trials for which you may be eligible. It is your choice for you or your child to be treated or not to be treated with bebtelovimab. Should you decide not to receive it or for your child to not receive it, it will not change your or your child s standard medical care. What if I am or ? There is limited experience treating women or mothers with bebtelovimab. Fora mother and unborn baby, the benefit of receiving bebtelovimab may be greater than the risk from the treatment. If or , discuss your options and specific situation with your healthcare provider. How do I report side effects with bebtelovimab? Contact your healthcare provider if you have any side effects that bother you or do not go away. Report side effects to FDA MedWatch at www.fda.gov/medwatch, or call 0-022-YGZ-7784 or to [employer] as shown below. Email Fax Number Telephone Number [phone] ( ) How can I learn more about COVID-19? Ask your healthcare provider Visit https://www.cdc.gov/COVID19 Contact your local or state public health department What is an Emergency Use Authorization? The [place] FDA has made bebtelovimab available under an emergency access mechanism called anEmergency Use Authorization (EUA). The EUA is supported by a Grant of Health and Human Service (HHS) declaration that circumstances exist to justify the emergency use of drugs and biological products during the COVID- 19 pandemic. Bebtelovimab for the treatment of fjqh-lm-nxnnqvsf COVID-19 in adults and children (12 years of ageand older weighing at least 88 pounds [40 kg]) and who are at high risk of developing severe COVID-19, including hospitalization or , and for whom other COVID-19 treatment options approved or authorized by FDA are not available or clinically appropriate has not undergone the same type of review as an FDA-approved product. In issuing an EUA under the COVID-19 public health emergency, the FDA has determined, among other things, that based on the total amount of scientific evidence available,including data from adequate and well-controlled clinical trials, it is reasonable to believe that t he product may be effective for diagnosing, treating, or preventing COVID-19, or a serious or life-threatening disease or condition caused by COVID-19; that the known and potential benefits of the product, when used to diagnose, treat, or prevent such disease or condition, outweigh the known and potential risks of such product; and that there are no adequate, approved and available alternatives. All of these criteria must be met to allow for the product to be used in the treatment of patients during the COVID-19 pandemic. The EUA for bebtelovimab is in effect for the duration of the COVID-19declaration justifying emergency use of bebtelovimab, unless terminated or revoked (after which bebtelovimab may no longer be used under the EUA). Additional Information For general questions, visit the website or call the telephone number provided below. Website Telephone Number www.[employer]/bebtelovimab 1-547-UhtfiF69 ( ) Literature issued May 10, 2021 [employer], [place] [address], [place] Copyright 2021, [employer]. All rights reserved. [id number] [facility]-[id number] documented in this encounterLicking [facility] Hospital10[facility]22 History of Present illness Narrative* Becky Mccarthy APRN.PUPPET MAKER - 01/21/2022 1:49 PM EDT This note was created using NoteWriter. Subjective Lovely Devi is a 76 year old male. 76 year old male with PMH DM, RLS, HTN, afib (on Coumadin), aflutter, NSTEMI, CHF, JESSICA, sleep apneaand morbid obesity presents for COVID 19 Acute onset today +cough +congestion +SOB with coughing and exertion. +fever Denies dyspnea. Denies hemoptysis Denies abdominal pain. Denies N/V/D +ill contacts with his grandson Home COVID this morning was POSITIVE. States he utilized Vicks and cough drops. Had COVID this past March and cites he was hospitalized. He is accompanied by his . The history is provided by the patient. No group art supervisor was used. Cough This is a new problem. The current episode started 3 to 5 hours ago. The problem occurs constantly.The problem has not changed since onset.The cough is Non- productive. There has been no fever. Associated symptoms include shortness of breath and wheezing. Pertinent negatives include no chest pain, no chills, no sweats, no weight loss, no ear congestion, no ear pain, no headaches, no rhinorrhea, no sore throat, no myalgias and no eye redness. He has tried nothing for the symptoms. The treatment provided no relief. He is not a smoker. His past medical history does not include bronchitis, pneumonia, bronchiectasis, COPD, emphysema or asthma. PAST MEDICAL HISTORY Diagnosis Date ASHD (arteriosclerotic heart disease) 02/19/2015 Atrial fibrillation (HCC) 07/03/2011 Automatic implantable cardiac defibrillator in situ Petit's esophagus with esophagitis 03/01/2015 Benign neoplasm of colon Chronic diarrhea 09/16/2011 Coronary atherosclerosis of unspecified type of vessel, makah or graft s/p [place] in 1985 Diverticulosis of colon (without mention of hemorrhage) Duodenitis without mention of hemorrhage Dysphagia 03/01/2015 Facet arthritis of lumbar region 07/14/2017 GERD (gastroesophageal reflux disease) 06/10/12 Heart attack (HCC) Labyrinthitis 02/05/2010 Neurocardiogenic syncope 03/01/2015 Obesity 09/16/2011 JESSICA treated with BiPAP DME [employer] Other and unspecified hyperlipidemia Other specified forms of chronic ischemic heart disease Paroxysmal ventricular tachycardia Snoring Stroke (HCC) Tinea of nail 01/13/2011 Type 2 diabetes mellitus with st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, with long-term current use of insulin(HCC) 06/15/2017 Unspecified essential hypertension PAST SURGICAL HISTORY Procedure Laterality Date COLONOSCOPY FLX DX W/COLLJ SPEC WHEN PFRMD 12/21/2017 Dr. Anthony-repeat 3 years-11/2020 COLONOSCOPY W/BIOPSY SINGLE/MULTIPLE 02/21/2009 ESOPHAGOGASTRODUODENOSCOPY TRANSORAL DIAGNOSTIC EGD ESOPHAGOGASTRODUODENOSCOPY TRANSORAL DIAGNOSTIC 02/16/2008 EGD inpt [facility] H-pylori negative ESOPHAGOGASTRODUODENOSCOPY TRANSORAL DIAGNOSTIC 05/24/2015 EGD ESOPHAGOGASTRODUODENOSCOPY TRANSORAL DIAGNOSTIC 12/21/2017 Dr. Anthony-repeat 3 years-11/2020 HEART CATHETERIZATION 12/15/2014 [facility] - see scanned documents HEART SURGERY HX 1 stent LEFT HEART CATH,PERCUTANEOUS Cardiac cath, L heart LEFT HEART CATH,PERCUTANEOUS 06/20/2011 Cardiac cath, L heart PAST SURGICAL HISTORY OF ICD/ pacemaker at [facility] PERC TRANSL COR ANGIO Percutaneous Transluminal Coronary Angio Status REMV CATARACT EXTRACAP,INSERT LENS Bilateral 2020 Right corrected in 2020 and left 2018. ALLERGIES Morphine and Rocephin [Ceftriaxone Sodium] MEDICATIONS dapagliflozin (FARXIGA) 5 mg tablet^Take 1 tablet by mouth daily with breakfast. Please apply 1 time free voucher: RxBin: [id number] PCN: [id number] Group: [id number] ID:[id number]^Disp: 30 tablet^Rfl: 0 insulin glargine (BASAGLAR KWIKPEN U-100 INSULIN) 100 unit/mL (3 mL)^Inject 33 Units subcutaneouslyevery morning AND 33 Units daily at bedtime. Patient Assistance Medication.^Disp: ^Rfl: insulin lispro (HUMALOG KWIKPEN INSULIN) 100 unit/mL^Inject 23 Units subcutaneously three times daily before meals. Plus sliding scale as directed ( 1 unit for every 50 mg/dL above 150 mg/dL)^Disp: ^Rfl: gabapentin (NEURONTIN) 300 mg capsule^Take 3 capsules by mouth three times daily for 90 days.^Disp:270 capsule^Rfl: 2 dulaglutide (TRULICITY) 3 mg/0.5 mL pen injector^Inject 3 mg subcutaneously one time a week.^Disp: 6 mL^Rfl: 3 lisinopril (ZESTRIL, PRINIVIL) 20 mg tablet^Take 1 tablet by mouth once daily.^Disp: 90 tablet^Rfl:3 flash glucose scanning reader (FREESTYLE FILI 2 READER)^Use to check blood sugar at least four (4)times daily.^Disp: 1 Each^Rfl: 0 flash glucose sensor (FREESTYLE FILI 2 SENSOR) kit^Apply new sensor every fourteen (14) days to upper arm.^Disp: 6 Each^Rfl: 4 warfarin (COUMADIN) 3 mg tablet^3 mg every Mon, Wed, Fri; 6 mg all other days^Disp: 90 tablet^Rfl: 3 rOPINIRole (REQUIP) 0.5 mg tablet^Take 2 tablets by mouth daily at bedtime.^Disp: 180 tablet^Rfl: 3 FLUoxetine (PROZAC) 20 mg capsule^Take 1 capsule by mouth once daily.^Disp: 90 capsule^Rfl: 3 nortriptyline (PAMELOR) 25 mg capsule^Take 1 capsule by mouth daily at bedtime.^Disp: 90 capsule^Rfl: 3 albuterol HFA (PROVENTIL HFA) 90 mcg/actuation inhaler^Inhale 2 Puffs as instructed every 4 hours while awake.^Disp: 1 Each^Rfl: 1 Insulin Syringe-Needle U-100 (BD ULTRAFINE INSULIN) 1 mL 31 gauge x 16^1 Each five times daily.^Disp: 450 Each^Rfl: 3 latanoprost (XALATAN) 0.005 % ophthalmic solution^Use 1 Drop in both eyes three times daily.^Disp: ^Rfl: colestipol (COLESTID) 1 gram tablet^Take 1 g by mouth twice daily.^Disp: ^Rfl: carvedilol (COREG) 3.125 mg tablet^Take 2 tablets by mouth twice daily. for one week starting on 06/20/16 then will be taking 6.25 x 2 daily .^Disp: ^Rfl: 0 BIPAP^Initiate BiPAP @ 2418 cm of water with humidification. Mask (per patient preference), chin strap, filters, tubing / heated tubing, heated humidity and lifetime supplies. Dx. JESSICA G47.33 [phone] - fax compliance download to [phone]^Disp: 1 Device^Rfl: 0 flash glucose sensor (FREESTYLE FILI 14 DAY SENSOR) kit^1 Each four times daily.^Disp: 1 Kit^Rfl: 11 spironolactone (ALDACTONE) 25 mg tablet^Take 1 tablet by mouth once daily.^Disp: ^Rfl: isosorbide mononitrate ER (IMDUR) 30 mg 24 hr tablet^Take 60 mg by mouth once daily. ^Disp: ^Rfl: 0 blood sugar diagnostic ([employer] BLOOD GLUCOSE SYSTEM) test strip^Use as instructed to check blood sugar 3 to 4 times daily DM: yes Insulin: yes DX:11.9^Disp: 400 Strip^Rfl: 3 fenofibrate nanocrystallized (TRICOR) 145 mg tablet^Take 1 tablet by mouth once daily.^Disp: ^Rfl: [address] (PROTONIX) 40 mg tablet^Take 40 mg by mouth once daily.^Disp: ^Rfl: Lancets (ONE TOUCH ULTRASOFT LANCETS) lancets^Use with [employer] Glucometer as directed^Disp: 100 Each^Rfl: 3 Aspirin 81 mg ORAL Tab^Take 1 tablet by mouth once daily. Take with food.^Disp: 30 tablet^Rfl: 11 CRESTOR 40 MG TAB^Take one(1) tablet daily.^Disp: ^Rfl: 0 NITROGLYCERIN 0.3 MG SUBLINGUAL TAB^Dissolve 0.4 mg under the tongue. Usual dose for angina is 1 tablet every 5 minutes for maximum of 3 doses in 15 minutes. ^Disp: ^Rfl: 0 famotidine (PEPCID) 20 mg tablet^Take 1 tablet by mouth daily at bedtime.^Disp: 90 tablet^Rfl: 1 (Patient not taking: Reported on 12/12/2021) clopidogrel (PLAVIX) 75 mg tablet^Take 1 tablet by mouth once daily.^Disp: 90 tablet^Rfl: 3 (Patient not taking: Reported on 12/12/2021) benzonatate (TESSALON PERLES) 100 mg capsule^Take 2 capsules by mouth three times daily as needed.^Disp: 30 capsule^Rfl: 0 (Patient not taking: Reported on 07/17/2021 ) guaiFENesin (MUCINEX) 600 mg 12 hr tablet^Take 1 tablet by mouth twice daily.^Disp: 20 tablet^Rfl: 0 (Patient not taking: Reported on 12/12/2021) benzonatate (TESSALON PERLES) 100 mg capsule^Take 2 capsules by mouth twice daily as needed for cough.^Disp: 40 capsule^Rfl: 0 (Patient not taking: Reported on 11/25/2021) furosemide (LASIX) 40 mg tablet^Take 2 tablets by mouth twice daily.^Disp: ^Rfl: Gehmc-4-LYD-EPA-Fish Oil (FISH OIL) 1,000 mg (120 mg-180 mg) cap^Take 1 capsule by mouth once daily.^Disp: 90 capsule^Rfl: 3 FAMILY HISTORY Problem Relation Age of Onset Stroke Mother Heart Mother Cancer Father prostate Heart Father Breast Cancer Sister Breast Cancer Sister Diabetes Sister Diabetes Brother Diabetes Brother Social History Tobacco Use Smoking status: Former Types: Cigars Quit date: 08/12/2007 Years since quittin.4 Smokeless tobacco: Never Tobacco comments: 2-3 per day Vaping Use Vaping Use: Never used Substance Use Topics Alcohol use: No Drug use: No Review of Systems Constitutional: Negative for chills and weight loss. HENT: Positive for congestion. Negative for ear pain, rhinorrhea and sore throat. Eyes: Negative for pain, discharge, redness and itching. Respiratory: Positive for cough, shortness of breath and wheezing. Negative for apnea, choking and chest tightness. Cardiovascular: Negative for chest pain. Gastrointestinal: Negative for abdominal pain, diarrhea, nausea and vomiting. Musculoskeletal: Negative for arthralgias, back pain, gait problem and myalgias. Skin: Negative for color change, pallor, rash and wound. Allergic/Immunologic: Negative for environmental allergies, food allergies and immunocompromised state. Neurological: Negative for dizziness, facial asymmetry and headaches. Hematological: Negative for adenopathy. Does not bruise/bleed easily. Psychiatric/Behavioral: Negative for agitation and behavioral problems. Objective BP 142/72 Pulse 106 Temp 37.1 C (98.7 F) Resp 22 Wt 127 kg (280 lb) SpO2 96% BMI 42.57 kg/m Physical Exam Vitals and nursing note reviewed. Constitutional: General: He is not in acute distress. Appearance: Normal appearance. He is not ill-appearing, toxic-appearing or diaphoretic. Comments: Morbidly obese HENT: Head: Normocephalic and atraumatic. Right Ear: External ear normal. Left Ear: External ear normal. Nose: Nose normal. No congestion or rhinorrhea. Mouth/Throat: Mouth: Mucous membranes are moist. Pharynx: Oropharynx is clear. No oropharyngeal exudate or posterior oropharyngeal erythema. Eyes: General: Right eye: No discharge. Left eye: No discharge. Extraocular Movements: Extraocular movements intact. Conjunctiva/sclera: Conjunctivae normal. Pupils: Pupils are equal, round, and reactive to light. Cardiovascular: Rate and Rhythm: Normal rate and regular rhythm. Pulses: Normal pulses. Heart sounds: Normal heart sounds. No murmur heard. No friction rub. No gallop. Pulmonary: Effort: Pulmonary effort is normal. No respiratory distress. Breath sounds: Normal breath sounds. No stridor. No wheezing, rhonchi or rales. Chest: Chest wall: No tenderness. Abdominal: General: Abdomen is flat. There is no distension. Palpations: Abdomen is soft. There is no mass. Tenderness: There is no abdominal tenderness. There is no guarding or rebound. Hernia: No hernia is present. Musculoskeletal: General: No swelling, tenderness, deformity or signs of injury. Normal range of motion. Cervical back: Normal range of motion and neck supple. No rigidity or tenderness. Right lower leg: No edema. Left lower leg: No edema. Comments: Utilizes cane to ambulate Lymphadenopathy: Cervical: No cervical adenopathy. Skin: General: Skin is warm and dry. Capillary Refill: Capillary refill takes less than 2 seconds. Coloration: Skin is not jaundiced or pale. Findings: No bruising, lesion or rash. Neurological: General: No focal deficit present. Mental Status: He is alert and oriented to person, place, and time. Cranial Nerves: No cranial nerve deficit. Sensory: No sensory deficit. Motor: No weakness. Coordination: Coordination normal. Gait: Gait normal. Deep Tendon Reflexes: Reflexes normal. Psychiatric: Mood and Affect: Mood normal. Behavior: Behavior normal. Thought Content: Thought content normal. Assessment and Plan ASSESSMENT/PLAN: 1. Acute cough - ICD9: 786.2, ICD10: R05.1 (primary diagnosis) X 1 day Given context of home COVID - COVID WITH FLUA+B, ROUTINE - XR CHEST 2V FRONTAL/LAT-negative for acute process. 2. COVID-19 - ICD9: 079.89, ICD10: U07.1 Home antigen test + History of COVID feels simlilar +grandson ill CXR today negative Patient will undergo monoclonal ATB Discussed patient with pharmacist and infusion team. He is scheduled for Thursday They will reach out and discuss with patient Discussed current [facility] Supportive measures - COVID WITH FLUA+B, ROUTINE - XR CHEST 2V FRONTAL/LAT - INTERMITTENT PERIPHERAL DEVICE ([place]) - SODIUM CHLORIDE 0.9 % INJECTION SOLUTION - AMBULATORY NURSING COMMUNICATION ORDER - SODIUM CHLORIDE 0.9 % INTRAVENOUS SOLUTION - ACETAMINOPHEN 325 MG TABLET - DIPHENHYDRAMINE 50 MG/ML INJECTION SYRINGE - HYDROCORTISONE SOD SUCCINATE (PF) 100 MG/2 ML SOLUTION FOR INJECTION - EPINEPHRINE 1 MG/ML (1 ML) INJECTION SOLUTION - ONDANSETRON HCL (PF) 4 MG/2 ML INJECTION SOLUTION - ONDANSETRON HCL 4 MG TABLET - PROCHLORPERAZINE EDISYLATE 10 MG/2 ML (5 MG/ML) INJECTION SOLUTION - PROCHLORPERAZINE MALEATE 5 MG TABLET - METOCLOPRAMIDE 5 MG/ML INJECTION SOLUTION - METOCLOPRAMIDE 10 MG TABLET - COVID TREATMENT REFERRAL - BEBTELOVIMAB 175 MG/2 ML (87.5 MG/ML) INTRAVENOUS SOLUTION (EUA) Becky Mccarthy APRN.PUPPET MAKER Bebtelovimab Eligibility and Patient Discussion [facility] Formulary Restriction Criteria: Adult outpatients 18 years and older with all of the following: [x] Patient has positive SARS-COV-2 viral test (PCR or antigen test) and symptoms for </= 7 days [x] Not requiring hospitalization at any time for management of COVID-19 [x] Not requiring supplemental oxygen or a change in baseline supplemental oxygen [] Meeting patient criteria as below: [x] Older age (age >/= 65 years) OR [x] 18 years and older with at least one of the following: [] Cancer [] Chronic kidney disease [] Chronic liver disease [] Chronic lung diseases, including cystic fibrosis [] Dementia or other neurological conditions [x] Diabetes (type 1 or type 2) [] Disabilities, including Down syndrome and neurodevelopmental disorders [x] Heart conditions [] HIV infection [x] Immunocompromised state [] Mental health conditions [] Medical related technological dependence (tracheostomy, gastrostomy, or positive pressure ventilation (not related to COVID)) [x] Overweight and obesity (BMI ? 25 or BMI ? 85th percentile for their age and gender based on CDCgrowth charts for pediatrics) [x] Physical inactivity [] [] Sickle cell disease or thalassemia [] Smoking, current or former [] Solid organ or blood stem cell transplant [] Stroke or cerebrovascular disease [] Substance use disorders [] Tuberculosis [] People from racial and ethnic minority groups Criteria above are met: Yes Date of Positive Test:01/21/22 (home test, PCR pending) Date of Symptom Onset: 01/21/22 Patient received COVID vaccine: Yes I have discussed the use of the investigational therapeutic, Bebtelovimab, for the treatment of mild to moderate COVID-19 and its use under Emergency Use Authorization with the patient. The patient was informed that Bebtelovimab is not an FDA approved drug and that it is authorized for use under this Emergency Use Authorization. The patient was also informed of the significant knownbenefits and potential risks of Bebtelovimab, and the extent to which such potential risks and benefits are unknown. The patient was informed that there is mandatory reporting of all medication errors and serious adverse events potentially related to Bebtelovimab treatment within 7 calendar days from the onset of the event. The discussion included alternatives to receiving Bebtelovimab, includingclinical trials, and potential the risks and benefits of those alternatives. The patient was provided electronically with the Fact Sheet for Patients, Parents and Caregivers . The patient was also instructed that in addition to the treatment with Bebtelovimab, he/she should continue to self-isolate and use infection control measures (e.g., wear mask, isolate, social distance, avoid sharing personal items, clean and disinfect high touch surfaces, and frequent handwashing) according to CDC guidelines. The patient stated understanding and gave verbal consent to proceeding with Bebtelovimab treatment. Becky Mccarthy APRN.PUPPET MAKER January 21, 2022 2:43 PM COVID-19 Monoclonal Antibody Pharmacist Review Pharmacist has reviewed and verified eligibility for bebtelovimab infusion based [facility] formulary restriction criteria. Date of Symptom Onset: 01-21-2022 Date of Positive Test: 01-21-2022 Criteria Met: YES (>65, diabetes) The patient's preferred site of infusion location is [facility] [x] Consult order for 'COVID TREATMENT REFERRAL' has been released Jose Peres RPh documented in this encounterL[facility]10-18-[facility]22 Miscellaneous Notes* Telephone Encounter - May Martinez Ma - 01/14/2022 8:59 AM EDT Forms completed and faxed to [employer]. May Martinez Ma * Telephone Encounter - Day Richardson Ma - 01/13/2022 12:42 PM EDT Office received pt assistance medication application forms from [employer]. Please review form for Farxiga 10 mg #90 for 1 year. Please complete PCP portion. Pt signed PCP portion, please review and sign. Once complete fax to [phone]. Day Richardson Ma documented in this encounterLicking [facility]09-29-2022 Miscellaneous Notes* Telephone Encounter - Susan Villegas [facility] - 12/26/2021 1:24 PM EDT [facility] Anticoagulation Episode Summary Anticoagulation Care Providers Provider Role Specialty Phone number Gilbert Keyes III, MD Family Medicine Lovely Devi is a 76 year old year old male patient being evaluated today for a Telemanagement visit. Patient is currently on the following anticoagulant(s) Warfarin. Labs PT INR (no units) Date Value 07/03/2021 2.7 (biotel) 06/19/2021 2.6 (biotel) 06/05/2021 3.3 (biotel) INR Home CoaguChek (no units) Date Value 12/26/2021 2.4 12/18/2021 1.9 12/04/2021 2.3 Hemoglobin (g/dL) Date Value 02/19/2021 11.3 Hematocrit (%) Date Value 02/19/2021 37.1 Platelet Count (k/uL) Date Value 02/19/2021 163 Creatinine (mg/dL) Date Value 02/19/2021 1.40 09/21/2020 1.74 09/14/2020 1.82 Bilirubin, Total (mg/dL) Date Value 02/19/2021 0.4 ALT (U/L) Date Value 02/19/2021 46 AST (U/L) Date Value 02/19/2021 41 CrCl cannot be calculated (Patient's most recent lab result is older than the maximum 180 days allowed.). ALLERGIES Allergen Reactions Morphine Rocephin [Ceftriaxo* Other: See Comments Hot flashes; redness to skin Indication for Warfarin: Paroxysmal atrial fibrillation (hcc) Anticoagulated on coumadin Anticoagulation Episode Summary Current INR goal: 2.0-3.0 Assessment: INR result of 2.4 is therapeutic Advised INR is not supratherapeutic so most likely not contributing to nosebleeds Plan: Current Warfarin Dosing As of 12/26/2021 Full warfarin instructions: 3 mg every Mon, Wed, Fri; 6 mg all other days Called and spoke to patient/caregiver Advised patient to continue current weekly dose as noted above Next home INR check scheduled on 01/08/2022 Patient verbalizes understanding of the plan. Patient denies need for refills. Susan Villegas RPh Clinical Pharmacist, Pharmacy Anticoagulation Clinic Pharmacy Anticoagulation Clinic Pager: [phone]. * Telephone Encounter - Susan Villegas RPh - 12/26/2021 12:38 PM EDT Called and stp. Advised him the medication does not interact with warfarin. Pt advised his bloody noses haven't been active bleeding, just dry blood when he blows his nose. Advised pt to test his INR today to be on the safe side. PAC will f/u when INR result is received. Patient verbalized understanding and agrees with the plan. Susan Villegas PharmD * Telephone Encounter - Cristina Escobar (Compound Filler) - 12/26/2021 11:52 AM EDT PATIENT CALL Patient called call center regarding new medication. Patient called and stated that he started a new medication: Disp Refills Start End dapagliflozin (FARXIGA) 5 mg tablet 30 tablet 0 12/23/2021 Sig: Take 1 tablet by mouth daily with breakfast. Please apply 1 time free voucher: RxBin: [id number] PCN: [id number] Group: [id number] ID:[id number] Patient stated that he took his first dose on Saturday 12/23. He also stated he's been experiencing nosebleeds lately. Next INR result expected 01/01 via home meter. Patient can be reached at [phone] to discuss. PT INR (no units) Date Value 07/03/2021 2.7 (biotel) 06/19/2021 2.6 (biotel) 06/05/2021 3.3 (biotel) INR Home CoaguChek (no units) Date Value 12/18/2021 1.9 12/04/2021 2.3 11/20/2021 2.3 Cristina Escobar (Compound Filler) documented in this encounterLicking [facility]09-28-[facility]22 Miscellaneous Notes* Telephone Encounter - Cholo Thorpe RPh - 12/25/2021 5:01 PM EDT Called and spoke with pharmacist at [facility]. She noted that voucher information was in the sig but was not billed. She will correct this and refund the patient. [facility] pharmacy will call patient to arrange refund. Cholo Thorpe RPh * Telephone Encounter - Cholo Thorpe RPh - 12/25/2021 4:53 PM EDT Called and spoke with patient. He confirms that he picked up Yoselin from pharmacy. He was charged $45, states the voucher was not applied. He is interested with moving forward with patient assistance for Yoselin, he has mailed W2 for himself and his to the office. He would like the application mailed to him to sign and he will mail back to the office. Cholo Thorpe PharmD, BCACP Primary Care Clinical Pharmacist * Telephone Encounter - Cholo Thorpe RPh - 12/24/2021 5:20 PM EDT Patient may apply for patient assistance for either dose 5 mg of 10 mg. Will start 30 day of 5 mg dose as planned with supply sent to pharmacy, and will plan to increase to 10 mg with next refill as recommended by cardiology. Cholo Thorpe RPh * Telephone Encounter - Melissa Mckeon LPN - 12/24/2021 2:07 PM EDT Pt states his classified ad taker Dr Perry would like pt to take 10mg of farxiga instead of 5mg. Pt askingKeti if this will mess up him getting the cost of the medication covered? Please advise. Melissa Mckeon LPN documented in this encounterLicking [facility]09-26-2022 History of Present illness Narrative* Cholo Thorpe RPh - 12/23/2021 11:00 AM EDT Primary Care Pharmacy Visit CC (Reason for Consult): DM Goal: A<7% Last Collaborating Physician/PARAFFIN 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 Visit: 12/12/21 Lovely Devi is a 76 year old male presenting for follow up visit by telephone. Patient consents to pharmacy collaborative practice agreement. At last visit with pharmacy on 11/29/21 the following changes were made: no medication changes made. INTERIM HISTORY: Reports readings remain elevated despite completing antibiotics course Continues to use Fili 14 day with current sensors Will obtain sample of Fili 2 reader from CDE as not able to receive new reader from DME Limited activity, mostly using cane at home Current DM Medications: Dulaglutide (Trulicity) 3 mg once weekly Insulin lispro (Humalog) 20 units three times daily before meals + Sliding Scale (1 units for every50 mg/dL above 150 mg/dL) Insulin glargine (Basaglar) 30 units in the morning and 30 units in the evening Preventative Medications: On NIYA/ARB: Yes On Statin: Yes GLYCEMIC CONTROL: Summary of CGM Findings: (last 14 days) 1- CGM recording is adequate for interpretation 2- Average glucose is 186 mg/dL. 12 - 6 am: 160 mg/dL 6 am -12pm: 223 mg/dL 12pm - 6 pm: 199 mg/dL 6pm - 12am: 158 mg/dL 3- Total frequency of hypoglycemia: 1% 4- Nocturnal hypoglycemia was not noted. 5- Hyperglycemic episodes: 49 % 6- Time in target range (70-180 mg/dL): 50 % ROS: Patient denies CP, SOB, FAITH, blurred vision, dizziness or lightheadedness Patient denies nausea, vomiting, diarrhea, abdominal pain Patient denies symptoms of hypoglycemia (sweating, anxiety, palpitations, hunger, and tremor) Patient denies symptoms of hyperglycemia (polyuria, polydipsia, polyphagia) Patient denies potential medication adverse effects MEDICATIONS: Adherence: denies missed doses. 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 Esophageal Reflux Benign Neoplasm of Colon Dermatophytosis of Nail Paroxysmal Atrial Fibrillation (Hcc) Anticoagulated On Coumadin Class 3 Severe Obesity With Serious Comorbidity and Body Mass Index (Bmi) of 40.0 to 44.9 in Adult ([facility]) Stasis Dermatitis of Both Legs Foot Callus Hyperlipidemia Ldl Goal <100 Ashd (Arteriosclerotic Heart Disease) Neurocardiogenic Syncope 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 With Stage 3a Chronic Kidney Disease, With Long-Term Current Use of Insulin ([facility]) Facet Arthritis of Lumbar Region Adenopathy Atrial Flutter ([facility]) Balanitis Coronary Angioplasty Status History of Deep Venous Thrombosis History of Non-St Elevation Myocardial Infarction (Nstemi) Ischemic Cardiomyopathy Jessica (Obstructive Sleep Apnea) Restless Leg Syndrome 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, With Long-Term Current Use of Insulin ([facility]) 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 and Stage 3a Chronic Kidney Disease (Hcc) 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 At Moderate Risk for Fall Chronic Pain of Both Knees Stage 3a Chronic Kidney Disease (Hcc) PAST MEDICAL HISTORY Diagnosis Date ASHD (arteriosclerotic heart disease) 02/19/2015 Atrial fibrillation (HCC) 07/03/2011 Automatic implantable cardiac defibrillator in situ Petit's esophagus with esophagitis 03/01/2015 Benign neoplasm of colon Chronic diarrhea 09/16/2011 Coronary atherosclerosis of unspecified type of vessel, makah or graft s/p [place] in 1985 Diverticulosis of colon (without mention of hemorrhage) Duodenitis without mention of hemorrhage Dysphagia 03/01/2015 Facet arthritis of lumbar region 07/14/2017 GERD (gastroesophageal reflux disease) 06/10/12 Heart attack ([facility]) Labyrinthitis 02/05/2010 Neurocardiogenic syncope 03/01/2015 Obesity 09/16/2011 JESSICA treated with BiPAP DME [employer] Other and unspecified hyperlipidemia Other specified forms of chronic ischemic heart disease Paroxysmal ventricular tachycardia ([facility]) Snoring Stroke ([facility]) Tinea of nail 01/13/2011 Type 2 diabetes mellitus with st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, with long-term current use of insulin([facility]) 06/15/2017 Unspecified essential hypertension ALLERGIES Allergen Reactions Morphine Rocephin [Ceftriaxo* Other: See Comments Hot flashes; redness to skin Current Outpatient Medications Medication Sig insulin glargine (BASAGLAR KWIKPEN U-100 INSULIN) 100 unit/mL (3 mL) Inject 33 Units subcutaneouslyevery morning AND 33 Units daily at bedtime. Patient Assistance Medication. insulin lispro (HUMALOG KWIKPEN INSULIN) 100 unit/mL Inject 23 Units subcutaneously three times daily before meals. Plus sliding scale as directed ( 1 unit for every 50 mg/dL above 150 mg/dL) gabapentin (NEURONTIN) 300 mg capsule Take 3 capsules by mouth three times daily for 90 days. dulaglutide (TRULICITY) 3 mg/0.5 mL pen injector Inject 3 mg subcutaneously one time a week. lisinopril (ZESTRIL, PRINIVIL) 20 mg tablet Take 1 tablet by mouth once daily. famotidine (PEPCID) 20 mg tablet Take 1 tablet by mouth daily at bedtime. (Patient not taking: Reported on 12/12/2021) flash glucose scanning reader (FREESTYLE FILI 2 READER) Use to check blood sugar at least four (4)times daily. flash glucose sensor (FREESTYLE FILI 2 SENSOR) kit Apply new sensor every fourteen (14) days to upper arm. clopidogrel (PLAVIX) 75 mg tablet Take 1 tablet by mouth once daily. (Patient not taking: Reported on 12/12/2021) warfarin (COUMADIN) 3 mg tablet 3 mg every Mon, Wed, Fri; 6 mg all other days rOPINIRole (REQUIP) 0.5 mg tablet Take 2 tablets by mouth daily at bedtime. benzonatate (TESSALON PERLES) 100 mg capsule Take 2 capsules by mouth three times daily as needed. (Patient not taking: Reported on 07/17/2021 ) FLUoxetine (PROZAC) 20 mg capsule Take 1 capsule by mouth once daily. nortriptyline (PAMELOR) 25 mg capsule Take 1 capsule by mouth daily at bedtime. albuterol HFA (PROVENTIL HFA) 90 mcg/actuation inhaler Inhale 2 Puffs as instructed every 4 hours while awake. guaiFENesin (MUCINEX) 600 mg 12 hr tablet Take 1 tablet by mouth twice daily. (Patient not taking: Reported on 12/12/2021) benzonatate (TESSALON PERLES) 100 mg capsule Take 2 capsules by mouth twice daily as needed for cough. (Patient not taking: Reported on 11/25/2021) furosemide (LASIX) 40 mg tablet Take 2 tablets by mouth twice daily. Nvtfv-7-IEZ-EPA-Fish Oil (FISH OIL) 1,000 mg (120 mg-180 mg) cap Take 1 capsule by mouth once daily. Insulin Syringe-Needle U-100 (BD ULTRAFINE INSULIN) 1 mL 31 gauge x 5/16 1 Each five times daily. latanoprost (XALATAN) 0.005 % ophthalmic solution Use 1 Drop in both eyes three times daily. colestipol (COLESTID) 1 gram tablet Take 1 g by mouth twice daily. carvedilol (COREG) 3.125 mg tablet Take 2 tablets by mouth twice daily. for one week starting on 06/20/16 then will be taking 6.25 x 2 daily . BIPAP Initiate BiPAP @ 24/18 cm of water with humidification. Mask (per patient preference), chin strap, filters, tubing / heated tubing, heated humidity and lifetime supplies. Dx. JESSICA G47.33 327.23 - fax compliance download to [phone] flash glucose sensor (FREESTYLE FILI 14 DAY SENSOR) kit 1 Each four times daily. spironolactone (ALDACTONE) 25 mg tablet Take 1 tablet by mouth once daily. isosorbide mononitrate ER (IMDUR) 30 mg 24 hr tablet Take 60 mg by mouth once daily. blood sugar diagnostic ([employer] BLOOD GLUCOSE SYSTEM) test strip Use as instructed to check blood sugar 3 to 4 times daily DM: yes Insulin: yes DX:11.9 fenofibrate nanocrystallized (TRICOR) 145 mg tablet Take 1 tablet by mouth once daily. pantoprazole DR (PROTONIX) 40 mg tablet Take 40 mg by mouth once daily. Lancets (ONE TOUCH ULTRASOFT LANCETS) lancets Use with [employer] Glucometer as directed Aspirin 81 mg ORAL Tab Take 1 tablet by mouth once daily. Take with food. CRESTOR 40 MG TAB Take one(1) tablet daily. NITROGLYCERIN 0.3 MG SUBLINGUAL TAB Dissolve 0.4 mg under the tongue. Usual dose for angina is 1 tablet every 5 minutes for maximum of 3 doses in 15 minutes. Current Facility-Administered Medications Medication Dose Route Frequency perflutren lipid microspheres 1.3 mL in NaCl (PF) 0.9% 10 mL injection (DEFINITY) INTRAVENOUS DIRECTED PRN sodium chloride 0.9 % (flush) 10 mL (BD POSIFLUSH) 10 mL INTRAVENOUS DIRECTED PRN EXAM: Last 3 Encounter BP Readings: Date: BP: 12/12/2021 120/76 11/25/2021 144/80 08/09/2021 138/78 Wt: 126.6 kg (279 lb) BMI: 42.42 kg/(m^2) LABS: Lab Results Component Value Date HBA1C 7.8 11/19/2021 HBA1C 7.3 08/17/2021 HBA1C 7.2 05/01/2021 HBA1C 7.2 03/04/2021 HBA1C 6.9 10/23/2020 CMP: Glucose 181 02/19/2021 BUN 28 02/19/2021 Creatinine 1.40 02/19/2021 Sodium 139 02/19/2021 Potassium 4.4 02/19/2021 Chloride 100 02/19/2021 CO2 27 02/19/2021 Protein, Total 7.0 02/19/2021 Albumin 4.1 02/19/2021 Calcium 9.5 02/19/2021 Alkaline Phosphatase 75 02/19/2021 Bilirubin, Total 0.4 02/19/2021 AST 41 02/19/2021 ALT 46 02/19/2021 Creatinine clearance cannot be calculated (Patient's most recent lab result is older than the maximum 180 days allowed.) GFR (mL/MIN) Date Value 01/04/2020 54 GFR (mL/MIN) Date Value 01/04/2020 54 eGFR- (no units) Date Value 02/19/2021 60 EGFR: 36 mL/min/1.73m2 (outside labs 12/10/21) - see scanned documents Lab Results Component Value Date CHOL 95 08/17/2021 CHOL 117 04/23/2020 LDL 26 08/17/2021 LDL 47 04/23/2020 HDL 31 08/17/2021 HDL 32 04/23/2020 TG 189 08/17/2021 TG 192 04/23/2020 The ASCVD Risk score (Jorge MEDINA, et al., 2019) failed to calculate for the following reasons: The valid total cholesterol range is 130 to 320 mg/dL Albumin/Creat Ratio (mg/g) Date Value 05/01/2021 Not calculated PHARMACOTHERAPY ASSESSMENT/PLAN: 1. Type 2 diabetes mellitus with diabetic neuropathy, with long-term current use of insulin ([facility]) -ICD9: 250.60, 357.2, V58.67, ICD10: E11.40, Z79.4 A1c goal < 7%; not at goal (last A1c 7.8%); SMBG elevated on current regimen; reports fewer s/sxhypoglycemia; denies s/sx hyperglycemia. Patient would benefit from SGLT2 inh due to h/o CHF and CKD. Agrees to start Farxiga. Will initiated with 30 day free voucher and pursue refills through patient assistance. START Farxiga 5 mg once daily CONTINUE Basaglar 33 units in the morning and 33 units in evening CONTINUE Trulicity 3 mg once weekly CONTINUE Humalog 23 units three times daily before meals + Sliding Scale (1 units for every 50 mg/dL above 150 mg/dL) - DAPAGLIFLOZIN 5 MG TABLET Follow up: Patient is scheduled to see PCP team on 01/29/22. Patient verbalized understanding of instructions. Cholo Thorpe, Abner, BCACP Primary Care Clinical Pharmacist The majority of the pharmacy visit (> 50%) was spent counseling and/or coordinating care for thepatient. [Telephonic] time was 20 minutes. documented in this encounterLicking [facility] Hospital09-21-2022 Miscellaneous Notes* Telephone Encounter - Kelsie Cerrato RPh - 12/18/2021 10:34 AM EDT [employer] message sent for nearly therapeutic INR. documented in this encounterLicking [facility] Hospital09-15-2022 Instructions* Patient Instructions* Shereen Holt APRN.CNP - 12/12/2021 1:42 PM EDT 1.) You are good candidate for an electric wheelchair. 2.) Have forms faxed to the office for completion [phone] 3.) Keep schedule appointment with Dr. Patino in January. 4.) Continue to take all medications as prescribed. 5.) Follow up as needed. documented in this encounterLicking [facility] Hospital09-15-2022 History of Present illness Narrative* Shereen Holt APRN.CNP - 12/12/2021 1:40 PM EDT This is a 76 year old male who presents today with: Patient presents with: Acute Visit: Electric wheel chair consult HISTORY OF PRESENT ILLNESS: Lovely Devi is a 76 year old male. Patient presents with: Acute Visit: Electric wheel chair consult Here in the office for wheelchair consultation. Will be establishing care with Dr. Patino in January. Difficulty getting around out in public and at home. SOB with exertion. Right leg will give out at times when walking. Has fallen several times. Using a cane daily. Would like a motorized wheelchair to help with mobility. Seeing Orthopedics as needed, getting knee injection to help with pain and swelling. History type 2 diabetes, chronic pain of both knees, neuropathy, and obesity. Going through [employer], recommends a in office appointment. PAST MEDICAL HISTORY: PAST MEDICAL HISTORY Diagnosis Date ASHD (arteriosclerotic heart disease) 02/19/2015 Atrial fibrillation (HCC) 07/03/2011 Automatic implantable cardiac defibrillator in situ Petit's esophagus with esophagitis 03/01/2015 Benign neoplasm of colon Chronic diarrhea 09/16/2011 Coronary atherosclerosis of unspecified type of vessel, makah or graft s/p [place] in 1985 Diverticulosis of colon (without mention of hemorrhage) Duodenitis without mention of hemorrhage Dysphagia 03/01/2015 Facet arthritis of lumbar region 07/14/2017 GERD (gastroesophageal reflux disease) 06/10/12 Heart attack (HCC) Labyrinthitis 02/05/2010 Neurocardiogenic syncope 03/01/2015 Obesity 09/16/2011 JESSICA treated with BiPAP DME [facility] Other and unspecified hyperlipidemia Other specified forms of chronic ischemic heart disease Paroxysmal ventricular tachycardia (HCC) Snoring Stroke (HCC) Tinea of nail 01/13/2011 Type 2 diabetes mellitus with stage 3 chronic kidney disease, with long-term current use of insulin(HCC) 06/15/2017 Unspecified essential hypertension PAST SURGICAL HISTORY Procedure Laterality Date COLONOSCOPY FLX DX W/COLLJ SPEC WHEN PFRMD 12/21/2017 Dr. Anthony-repeat 3 years-11/2020 COLONOSCOPY W/BIOPSY SINGLE/MULTIPLE 02/21/2009 ESOPHAGOGASTRODUODENOSCOPY TRANSORAL DIAGNOSTIC EGD ESOPHAGOGASTRODUODENOSCOPY TRANSORAL DIAGNOSTIC 02/16/2008 EGD inpt [facility] H-pylori negative ESOPHAGOGASTRODUODENOSCOPY TRANSORAL DIAGNOSTIC 05/24/2015 EGD ESOPHAGOGASTRODUODENOSCOPY TRANSORAL DIAGNOSTIC 12/21/2017 Dr. Anthony-repeat 3 years-11/2020 HEART CATHETERIZATION 12/15/2014 [facility] - see scanned documents HEART SURGERY HX 1 stent LEFT HEART CATH,PERCUTANEOUS Cardiac cath, L heart LEFT HEART CATH,PERCUTANEOUS 06/20/2011 Cardiac cath, L heart PAST SURGICAL HISTORY OF ICD/ pacemaker at [facility] PERC TRANSL COR ANGIO Percutaneous Transluminal Coronary Angio Status REMV CATARACT EXTRACAP,INSERT LENS Bilateral 2020 Right corrected in 2020 and left 2018. ALLERGIES Morphine and Rocephin [Ceftriaxone Sodium] MEDICATIONS Current Outpatient Medications Medication Sig insulin glargine (BASAGLAR KWIKPEN U-100 INSULIN) 100 unit/mL (3 mL) Inject 33 Units subcutaneouslyevery morning AND 33 Units daily at bedtime. Patient Assistance Medication. insulin lispro (HUMALOG KWIKPEN INSULIN) 100 unit/mL Inject 23 Units subcutaneously three times daily before meals. Plus sliding scale as directed ( 1 unit for every 50 mg/dL above 150 mg/dL) gabapentin (NEURONTIN) 300 mg capsule Take 3 capsules by mouth three times daily for 90 days. dulaglutide (TRULICITY) 3 mg/0.5 mL pen injector Inject 3 mg subcutaneously one time a week. lisinopril (ZESTRIL, PRINIVIL) 20 mg tablet Take 1 tablet by mouth once daily. famotidine (PEPCID) 20 mg tablet Take 1 tablet by mouth daily at bedtime. flash glucose scanning reader (OneFoldSTYLE FILI 2 READER) Use to check blood sugar at least four (4)times daily. flash glucose sensor (FREESTYLE FILI 2 SENSOR) kit Apply new sensor every fourteen (14) days to upper arm. clopidogrel (PLAVIX) 75 mg tablet Take 1 tablet by mouth once daily. warfarin (COUMADIN) 3 mg tablet 3 mg every Mon, Wed, Fri; 6 mg all other days rOPINIRole (REQUIP) 0.5 mg tablet Take 2 tablets by mouth daily at bedtime. benzonatate (TESSALON PERLES) 100 mg capsule Take 2 capsules by mouth three times daily as needed. (Patient not taking: Reported on 07/17/2021 ) FLUoxetine (PROZAC) 20 mg capsule Take 1 capsule by mouth once daily. nortriptyline (PAMELOR) 25 mg capsule Take 1 capsule by mouth daily at bedtime. albuterol HFA (PROVENTIL HFA) 90 mcg/actuation inhaler Inhale 2 Puffs as instructed every 4 hours while awake. guaiFENesin (MUCINEX) 600 mg 12 hr tablet Take 1 tablet by mouth twice daily. benzonatate (TESSALON PERLES) 100 mg capsule Take 2 capsules by mouth twice daily as needed for cough. (Patient not taking: Reported on 11/25/2021) furosemide (LASIX) 40 mg tablet Take 2 tablets by mouth twice daily. Alwvd-9-GAJ-EPA-Fish Oil (FISH OIL) 1,000 mg (120 mg-180 mg) cap Take 1 capsule by mouth once daily. Insulin Syringe-Needle U-100 (BD ULTRAFINE INSULIN) 1 mL 31 gauge x 5/16 1 Each five times daily. latanoprost (XALATAN) 0.005 % ophthalmic solution Use 1 Drop in both eyes three times daily. colestipol (COLESTID) 1 gram tablet Take 1 g by mouth twice daily. carvedilol (COREG) 3.125 mg tablet Take 2 tablets by mouth twice daily. for one week starting on 06/20/16 then will be taking 6.25 x 2 daily . BIPAP Initiate BiPAP @ 24/18 cm of water with humidification. Mask (per patient preference), chin strap, filters, tubing / heated tubing, heated humidity and lifetime supplies. Dx. JESSICA G47.33 327.23 - fax compliance download to [phone] flash glucose sensor (FREESTYLE FILI 14 DAY SENSOR) kit 1 Each four times daily. spironolactone (ALDACTONE) 25 mg tablet Take 1 tablet by mouth once daily. isosorbide mononitrate ER (IMDUR) 30 mg 24 hr tablet Take 60 mg by mouth once daily. blood sugar diagnostic ([employer] BLOOD GLUCOSE SYSTEM) test strip Use as instructed to check blood sugar 3 to 4 times daily DM: yes Insulin: yes DX:11.9 fenofibrate nanocrystallized (TRICOR) 145 mg tablet Take 1 tablet by mouth once daily. pantoprazole DR (PROTONIX) 40 mg tablet Take 40 mg by mouth once daily. Lancets (ONE TOUCH ULTRASOFT LANCETS) lancets Use with [employer] Glucometer as directed Aspirin 81 mg ORAL Tab Take 1 tablet by mouth once daily. Take with food. CRESTOR 40 MG TAB Take one(1) tablet daily. NITROGLYCERIN 0.3 MG SUBLINGUAL TAB Dissolve 0.4 mg under the tongue. Usual dose for angina is 1 tablet every 5 minutes for maximum of 3 doses in 15 minutes. Current Facility-Administered Medications Medication Dose Route Frequency perflutren lipid microspheres 1.3 mL in NaCl (PF) 0.9% 10 mL injection (DEFINITY) INTRAVENOUS DIRECTED PRN sodium chloride 0.9 % (flush) 10 mL (BD POSIFLUSH) 10 mL INTRAVENOUS DIRECTED PRN FAMILY HISTORY Problem Relation Age of Onset Stroke Mother Heart Mother Cancer Father prostate Heart Father Breast Cancer Sister Breast Cancer Sister Diabetes Sister Diabetes Brother Diabetes Brother Social History Tobacco Use Smoking status: Former Types: Cigars Quit date: 08/12/2007 Years since quittin.3 Smokeless tobacco: Never Tobacco comments: 2-3 per day Vaping Use Vaping Use: Never used Substance Use Topics Alcohol use: No Drug use: No REVIEW OF SYSTEMS GENERAL: No weight loss, malaise or fevers/chills HEENT: Negative for frequent or significant headaches, No changes in hearing or vision. NECK: Negative for lumps, goiter, pain and significant neck swelling RESPIRATORY: Negative for cough, hemoptysis, wheezing, dyspnea or shortness of breath CARDIOVASCULAR: Negative for chest pain, leg swelling, orthopnea, or palpitations GI: No nausea, vomiting, or diarrhea/constipation. No hematochezia/melena. No heartburn or reflux symptoms. : No history of dysuria, frequency or incontinence MUSCULOSKELETAL: Knee/back Pain, falls, right leg giving out SKIN: Negative for lesions, rash, and itching ENDOCRINE: Negative for cold or heat intolerance, polyuria, polydipsia and goiter NEURO: No history of headaches, syncope, paralysis, seizures or tremors MOOD: Negative for depression, anxiety, or suicidal ideation. EXAM: BP 120/76 Pulse 71 Resp 20 Wt 126.6 kg (279 lb) SpO2 95% BMI 42.42 kg/m PHYSICAL EXAM: General Appearance: Well appearing, alert, in no acute distress, well-hydrated, well nourished. Skin: Skin color, texture, turgor normal, no suspicious rashes or lesions. Head: Normocephalic, no masses, lesions, tenderness or abnormalities. Eyes: Anicteric sclera. Extraocular movements are intact. Lungs: Lungs clear to auscultation. No wheezing, rhonchi, rales. Heart: RRR without murmur, gallop, or rubs. No ectopy. Extremities: No deformities, edema, skin discoloration, clubbing or cyanosis. Good capillary refill. Musculoskeletal: Low back tenderness with palpation. Decreased ROM. Negative SLR. Bilateral knee pain noted at the distal aspect of the patella. Crepitus palpable (right knee) with ROM. Decreased ROM. Peripheral Pulses: Normal, Capillary refill <2secs, strong peripheral pulses, Pulses palpable. Neurologic: Using Cane. Reflexes normal and symmetric. Sensation grossly intact. ASSESSMENT/PLAN: 1. Class 3 severe obesity with serious comorbidity and body mass index (BMI) of 40.0 to 44.9 in adult, unspecified obesity type (HCC) - ICD9: 278.01, V85.41, ICD10: E66.01, Z68.41 (primary diagnosis) Weight increasing - Due chronic medical condition patient would be an appropriate candidate for an electric wheelchair. 2. Facet arthritis of lumbar region - ICD9: 721.3, ICD10: M47.816 - Same plan as #1. 3. Chronic pain of both knees - ICD9: 719.46, 338.29, ICD10: M25.561, M25.562, G89.29 - Keep scheduled appointments with Orthopedics. Follow-up as needed or sooner if symptoms get worse or do not improve. Discussed treatment plan and patient voices understanding. Patient's questions answered appropriately. Medications and potential side effects were discussed and patient voices understanding. Shereen Holt APRN.RODRIGUEZ This note was partially generated using [employer] voice recognition system. Note was reviewed for accuracy. There may be minor misspellings or grammar miscues with [employer] voice recognition. documented in this encounterLicking [facility]09-[facility]-2022 Miscellaneous Notes* Telephone Encounter - Kelsie Cerrato RPh - 12/04/2021 11:45 AM EDT Advanced Voice Recognition Systemshart message sent for therapeutic INR. He didn't read our last msg however. documented in this encounterLicking [facility]09-06-2022 History of Present illness Narrative* May Garcia RN - 12/03/2021 8:49 AM EDT inSight CDM Escalation Follow Up Action/FYI: Contact made with patient: Left Message: My name is May Garcia RN, from the [facility]. I am calling regarding your recent visit with our Virtual Provider. Sorry that I am not able to speak with you. If you have a problem that needs to addressed by your Physician, please contact your Primary Care Provider's office. - END OUTREACH documented in this encounterLicking [facility] Hospital09-02-2022 Miscellaneous Notes* Telephone Encounter - Cholo Thorpe RPh - 11/29/2021 2:19 PM EDT Pt reports that [employer] told him they can sent the Fili 2 sensors but no the reader. Patient does not have a smartphone and is unable to use the sensors without the reader . Called and spoke with [employer]. Since patient has received a CGM meter within the last 5 years, medicare will not cover a meter at this time, patient would need to pay out of pocket. He is due for a sensor shipment on 12/04, they will send Fili 14 day sensors Will coordinate with Jose ANDERSEN to acquire Fili 2 sensor for patient to switch to Fili 2in the future. Called and notified patient. Cholo Thorpe, PharmD, BCACP Primary Care Clinical Pharmacist documented in this encounterLicking Memorial Hospital09-02-2022 History of Present illness Narrative* Federico Holt MD - 11/29/2021 12:54 PM EDT Virtualist Distance Health Note (Community monitoring/CC HC/H@[facility] escalations) Adult seen for Monitoring Track: Chronic Disease Management Contacted by phone, [email or web address], Pebble Duo, Zoom, Doximity, other: phone History of present illness: Patient is a 76 yo with history of CKD (last creatinine is >6 months ago but was 1.4), DM, CHF, atrial flutter, and he has an AICD. He has no upcoming appointments. He complains of 10# weight gainin the last month and is accompanied by increasing edema. His lasix is now 40 bid and 25 mg of lalo nolactone daily. He was on lasix 80 bid until a few months ago when it was decreased due to worsening kidney function. He does notice some worsening of SOB but not severe. He denies dietary indiscretion at this time. He does not see cardiology again until after new years. I advised him to increase lasix back to 80 mg bid for 3 days and to contact cardiology about them adjusting it from there. Past medical history, past surgical history, family history and social history reviewed and updatedas indicated in EMR. REVIEW OF SYSTEMS: Review of Systems VITAL SIGNS: (if available) There were no vitals taken for this visit. Physical Exam (if video visit was performed) Physical Exam Assessment/Plan: ASSESSMENT/PLAN: 1. Chronic combined systolic and diastolic congestive heart failure (HCC) - ICD9: 428.42, 428.0, ICD10: I50.42 With exacerbation of recent 10# weight gain. Federico Holt Disposition: Patient remains at home; meds adjusted and / or prescribed A total of 13 minutes was spent providing medical care using telemedicine. [place] [id number] association Signed in as Primary Virtualist, Secondary Virtualist, or [facility] Telehealth provider: Primary SIGNATURE: Federico Holt MD PATIENT NAME: Lovely Devi DATE: November 29, 2021 documented in this encounterLicking [facility] Hospital09-02-2022 History of Present illness Narrative* Tracie Castle RN - 11/29/2021 11:16 AM EDT INSIGHT CDM ESCALATION Provider Action/FYI: CHF CKD DM Escalation to pool for LE edema and weight gain concerns. Seen in [facility] on 11/25/21 for L foot infection- prescribed doxycycline and mupirocin. Patient sees cardiology and pulmonary at [place]. Call 1- no voice mail Call 2-more swelling in legs. Up to knees per patient. Leg elevation really doesn't do anything. .Slight increase in SOB. Cough present but unchanged (states chronic) Reviewed Lasix- had been up to Lasix 80 mg twice daily but was decreased due to my kidneys and patient states he has been taking 80 mg once daily. Unsure when decreased dosage States weight this am was 280, but has gained about 10 lbs over last month.( Used to be 270 ) Weight at [facility] on 11/25/21 was 279 lbs. (States daughter is helping with foot infection- she says it is looking better Next cardiology visit in 02/18 per patient Sending to virutalist for LE edema and weight gain 10 lbs over about a month. Unclear of lasix dosage. Message received via: InSight - Yes contact made with patient ACTION TAKEN: Based on director of estate, the following disposition is advised: Urgent / SAME DAY visit: Page Virtualist at and indicate 'CDM patient', MRN, Patient Name, Patient Concern, and patient's preferred method of contact (telephone, FaceTime, Google Duo), your name, your contact number. Informed patient that you recommend further assessment from a provider to review symptoms. I have sent a page for the provider to contact you today. If you haven't heard from that provider and still have concerns, please contact you PCP's office right away. Indicated CDM patient and symptoms in the FYI box and sent alpha page to Virtualist to to contact the patient.Route as 'high priority' to Virtualist nuclear weapons mechanical specialist - End outreach. documented in this encounterLicking [facility] Hospital09-02-2022 History of Present illness Narrative* Deedeethi Thorpe, [facility] - 11/29/2021 11:00 AM EDT Primary Care Pharmacy Visit CC (Reason for Consult): DM Goal: <7% Last Collaborating Physician Visit: 08/09/21 Lovely Devi is a 76 year old male presenting for follow up visit by telephone. Patient consents to pharmacy collaborative practice agreement. At last visit with pharmacy on 11/08 the following changes were made: no med changes made, discussed having consistent mid-day meal to prevent hypoglycemia. Patient was seen in [facility] care on 11/25 for foot infection and started on doxycycline. INTERIM HISTORY: Reports that foot infection is beginning to improve since starting antibiotics, has follow up with specialist next week He has noticed that BG readings have been running higher since infection and antibiotics Appetite has improved, having fewer low BG readings as trying to eat more consistently Since reading have been higher with infection, he has self increased Basaglar to 33 BID and Humalogbase to 23 units Was told by [facility] that they can send him the Fili 2 sensors but not the reader Current DM Medications: Dulaglutide (Trulicity) 3 mg once weekly Insulin lispro (Humalog) 20 units three times daily before meals + Sliding Scale (1 units for every50 mg/dL above 150 mg/dL) Insulin glargine (Basaglar) 30 units in the morning and 30 units in the evening Preventative Medications: On NIYA/ARB: Yes On Statin: Yes GLYCEMIC CONTROL: Summary of CGM Findings: (last 14 days) 1- CGM recording is adequate for interpretation 2- Average glucose is 190 mg/dL. 12 - 6 am: 189 mg/dL 6 am -12pm: 177 mg/dL 12pm - 6 pm: 189 mg/dL 6pm - 12am: 208 mg/dL 3- Total frequency of hypoglycemia: 2% 4- Nocturnal hypoglycemia was not noted. 5- Hyperglycemic episodes: 63% 6- Time in target range (70-180 mg/dL): 35% ROS: Patient denies CP, SOB, FAITH, blurred vision, dizziness or lightheadedness Patient denies nausea, vomiting, diarrhea, abdominal pain Patient denies symptoms of hypoglycemia (sweating, anxiety, palpitations, hunger, and tremor) Patient denies symptoms of hyperglycemia (polyuria, polydipsia, polyphagia) Patient denies potential medication adverse effects MEDICATIONS: Adherence: denies missed doses. [facility]: Medicare Affordability: insulins through [employer] Diabetes supplies: [employer] Fili 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 Esophageal Reflux Benign Neoplasm of Colon Dermatophytosis of Nail Paroxysmal Atrial Fibrillation (Hcc) Anticoagulated On Coumadin Class 3 Severe Obesity With Serious Comorbidity and Body Mass Index (Bmi) of 40.0 to 44.9 in Adult (Hcc) Stasis Dermatitis of Both Legs Foot Callus Hyperlipidemia Ldl Goal <100 Ashd (Arteriosclerotic Heart Disease) Neurocardiogenic Syncope 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 With Stage 3a Chronic Kidney Disease, With Long-Term Current Use of Insulin (Hcc) Facet Arthritis of Lumbar Region Adenopathy Atrial Flutter (Hcc) Balanitis Coronary Angioplasty Status History of Deep Venous Thrombosis History of Non-St Elevation Myocardial Infarction (Nstemi) Ischemic Cardiomyopathy Jessica (Obstructive Sleep Apnea) Restless Leg Syndrome 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, With Long-Term Current Use of Insulin (Hcc) 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 and Stage 3a Chronic Kidney Disease (Hcc) 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 At Moderate Risk for Fall Chronic Pain of Both Knees Stage 3a Chronic Kidney Disease (Hcc) PAST MEDICAL HISTORY Diagnosis Date ASHD (arteriosclerotic heart disease) 02/19/2015 Atrial fibrillation (HCC) 07/03/2011 Automatic implantable cardiac defibrillator in situ Petit's esophagus with esophagitis 03/01/2015 Benign neoplasm of colon Chronic diarrhea 09/16/2011 Coronary atherosclerosis of unspecified type of vessel, makah or graft s/p [place] in 1985 Diverticulosis of colon (without mention of hemorrhage) Duodenitis without mention of hemorrhage Dysphagia 03/01/2015 Facet arthritis of lumbar region 07/14/2017 GERD (gastroesophageal reflux disease) 06/10/12 Heart attack (HCC) Labyrinthitis 02/05/2010 Neurocardiogenic syncope 03/01/2015 Obesity 09/16/2011 JESSICA treated with BiPAP DME [employer] Other and unspecified hyperlipidemia Other specified forms of chronic ischemic heart disease Paroxysmal ventricular tachycardia (HCC) Snoring Stroke (HCC) Tinea of nail 01/13/2011 Type 2 diabetes mellitus with stage 3 chronic kidney disease, with long-term current use of insulin(HCC) 06/15/2017 Unspecified essential hypertension ALLERGIES Allergen Reactions Morphine Rocephin [Ceftriaxo* Other: See Comments Hot flashes; redness to skin Current Outpatient Medications Medication Sig doxycycline monohydrate 100 mg tablet Take 1 tablet by mouth twice daily for 7 days. mupirocin (BACTROBAN) 2 % ointment Apply to affected area three times daily for 10 days. gabapentin (NEURONTIN) 300 mg capsule Take 3 capsules by mouth three times daily for 90 days. dulaglutide (TRULICITY) 3 mg/0.5 mL pen injector Inject 3 mg subcutaneously one time a week. lisinopril (ZESTRIL, PRINIVIL) 20 mg tablet Take 1 tablet by mouth once daily. famotidine (PEPCID) 20 mg tablet Take 1 tablet by mouth daily at bedtime. flash glucose scanning reader (OneFoldSTYLE FILI 2 READER) Use to check blood sugar at least four (4)times daily. flash glucose sensor (FREESTYLE FILI 2 SENSOR) kit Apply new sensor every fourteen (14) days to upper arm. clopidogrel (PLAVIX) 75 mg tablet Take 1 tablet by mouth once daily. warfarin (COUMADIN) 3 mg tablet 3 mg every Mon, Wed, Fri; 6 mg all other days rOPINIRole (REQUIP) 0.5 mg tablet Take 2 tablets by mouth daily at bedtime. insulin glargine (BASAGLAR KWIKPEN U-100 INSULIN) 100 unit/mL (3 mL) Inject 30 Units subcutaneouslyevery morning AND 30 Units daily at bedtime. Patient Assistance Medication. benzonatate (TESSALON PERLES) 100 mg capsule Take 2 capsules by mouth three times daily as needed. (Patient not taking: Reported on 07/17/2021 ) FLUoxetine (PROZAC) 20 mg capsule Take 1 capsule by mouth once daily. nortriptyline (PAMELOR) 25 mg capsule Take 1 capsule by mouth daily at bedtime. insulin lispro (HUMALOG KWIKPEN INSULIN) 100 unit/mL Inject 20 Units subcutaneously three times daily before meals. Plus sliding scale as directed ( 1 unit for every 50 mg/dL above 150 mg/dL) albuterol HFA (PROVENTIL HFA) 90 mcg/actuation inhaler Inhale 2 Puffs as instructed every 4 hours while awake. guaiFENesin (MUCINEX) 600 mg 12 hr tablet Take 1 tablet by mouth twice daily. benzonatate (TESSALON PERLES) 100 mg capsule Take 2 capsules by mouth twice daily as needed for cough. (Patient not taking: Reported on 11/25/2021) furosemide (LASIX) 40 mg tablet Take 2 tablets by mouth twice daily. Dkouy-4-OEO-EPA-Fish Oil (FISH OIL) 1,000 mg (120 mg-180 mg) cap Take 1 capsule by mouth once daily. Insulin Syringe-Needle U-100 (BD ULTRAFINE INSULIN) 1 mL 31 gauge x 5/16 1 Each five times daily. latanoprost (XALATAN) 0.005 % ophthalmic solution Use 1 Drop in both eyes three times daily. colestipol (COLESTID) 1 gram tablet Take 1 g by mouth twice daily. carvedilol (COREG) 3.125 mg tablet Take 2 tablets by mouth twice daily. for one week starting on 06/20/16 then will be taking 6.25 x 2 daily . BIPAP Initiate BiPAP @ 24/18 cm of water with humidification. Mask (per patient preference), chin strap, filters, tubing / heated tubing, heated humidity and lifetime supplies. Dx. JESSICA G47.33 327.23 - fax compliance download to [phone] flash glucose sensor (FREESTYLE FILI 14 DAY SENSOR) kit 1 Each four times daily. spironolactone (ALDACTONE) 25 mg tablet Take 1 tablet by mouth once daily. isosorbide mononitrate ER (IMDUR) 30 mg 24 hr tablet Take 60 mg by mouth once daily. blood sugar diagnostic ([employer] BLOOD GLUCOSE SYSTEM) test strip Use as instructed to check blood sugar 3 to 4 times daily DM: yes Insulin: yes DX:11.9 fenofibrate nanocrystallized (TRICOR) 145 mg tablet Take 1 tablet by mouth once daily. pantoprazole DR (PROTONIX) 40 mg tablet Take 40 mg by mouth once daily. Lancets (ONE TOUCH ULTRASOFT LANCETS) lancets Use with CeDe Groupuch Glucometer as directed Aspirin 81 mg ORAL Tab Take 1 tablet by mouth once daily. Take with food. CRESTOR 40 MG TAB Take one(1) tablet daily. NITROGLYCERIN 0.3 MG SUBLINGUAL TAB Dissolve 0.4 mg under the tongue. Usual dose for angina is 1 tablet every 5 minutes for maximum of 3 doses in 15 minutes. Current Facility-Administered Medications Medication Dose Route Frequency perflutren lipid microspheres 1.3 mL in NaCl (PF) 0.9% 10 mL injection (DEFINITY) INTRAVENOUS DIRECTED PRN sodium chloride 0.9 % (flush) 10 mL (BD POSIFLUSH) 10 mL INTRAVENOUS DIRECTED PRN EXAM: Last 3 Encounter BP Readings: Date: BP: 11/25/2021 144/80 08/09/2021 138/78 07/29/2021 128/80 Wt: 126.6 kg (279 lb) BMI: 42.42 kg/(m^2) LABS: Lab Results Component Value Date HBA1C 7.8 11/19/2021 HBA1C 7.3 08/17/2021 HBA1C 7.2 05/01/2021 HBA1C 7.2 03/04/2021 HBA1C 6.9 10/23/2020 CMP: Glucose 181 02/19/2021 BUN 28 02/19/2021 Creatinine 1.40 02/19/2021 Sodium 139 02/19/2021 Potassium 4.4 02/19/2021 Chloride 100 02/19/2021 CO2 27 02/19/2021 Protein, Total 7.0 02/19/2021 Albumin 4.1 02/19/2021 Calcium 9.5 02/19/2021 Alkaline Phosphatase 75 02/19/2021 Bilirubin, Total 0.4 02/19/2021 AST 41 02/19/2021 ALT 46 02/19/2021 Creatinine clearance cannot be calculated (Patient's most recent lab result is older than the maximum 180 days allowed.) GFR (mL/MIN) Date Value 01/04/2020 54 eGFR- (no units) Date Value 02/19/2021 60 Vitamin B12 Date Value Ref Range Status 12/17/2018 384 232 - 1,245 pg/mL Final Lab Results Component Value Date CHOL 95 08/17/2021 CHOL 117 04/23/2020 LDL 26 08/17/2021 LDL 47 04/23/2020 HDL 31 08/17/2021 HDL 32 04/23/2020 TG 189 08/17/2021 TG 192 04/23/2020 The ASCVD Risk score (Jorge MEDINA, et al., 2019) failed to calculate for the following reasons: The valid total cholesterol range is 130 to 320 mg/dL Albumin/Creat Ratio (mg/g) Date Value 05/01/2021 Not calculated PHARMACOTHERAPY ASSESSMENT/PLAN: 1. Type 2 diabetes mellitus with stage 3a chronic kidney disease, with long-term current use of insulin ([facility]) - ICD9: 250.40, 585.3, V58.67, ICD10: E11.22, N18.31, Z79.4 A1c goal < 7%; not at goal (last A1c 7.8%); SMBG elevated on current regimen; reports fewer s/sxhypoglycemia; denies s/sx hyperglycemia; Elevated readings related to recent illness and antibiotics course. Patient has self-increased insulin doses to improved readings, will continue current regimen. CONTINUE Insulin glargine (Basaglar) 33 units in the morning and 33 units in evening CONTINUE Dulaglutide (Trulicity) 3 mg once weekly CONTINUE Insulin lispro (Humalog) 23 units three times daily before meals + Sliding Scale (1 units for every 50 mg/dL above 150 mg/dL) - INSULIN GLARGINE (U-100) 100 UNIT/ML (3 ML) SUBCUTANEOUS PEN Follow up: Patient is scheduled to see PCP team on 01/29/22. Patient to follow up with pharmD on 12/23/21. Patient verbalized understanding of instructions. Cholo Thorpe PharmD, BCACP Primary Care Clinical Pharmacist The majority of the pharmacy visit (> 50%) was spent counseling and/or coordinating care for thepatient. [Telephonic] time was 20 minutes. documented in this encounterLicking [facility] Hospital09-02-2022 Evaluation note* Diagnosis Type 2 diabetes mellitus with stage 3a chronic kidney disease, with long-term current use of insulin (HCC)- Primary documented in this encounter [facility]08[facility] Instructions* Patient Instructions* Jens Wood APRN.CNP - 11/25/2021 1:51 PM EDT ASSESSMENT/PLAN: 1. Left foot infection - ICD9: 686.9, ICD10: L08.9 - Begin treatment with doxycycline - Follow up for recheck with foot DR in 1 week Urgent follow up for worsening symptoms. - DOXYCYCLINE MONOHYDRATE 100 MG TABLET - MUPIROCIN 2 % TOPICAL OINTMENT documented in this encounterLicking Memorial Hospital08-29-2022 History of Present illness Narrative* Jens Wood APRN.CNP - 11/25/2021 11:13 AM EDT Images from the original note were not included. Subjective HPI HPI Lovely Devi is a 76 year old male who presents today for CC of left foot/toe crack, redness/infection. This started few days ago. Has tried otc ointment for relief. Symptoms are worsened by chronic dry skin. Risk factors uncontrolled diabetic. Denies fever, foot injury. .Patient presents with: Derm Problem: left foot, dry and cracked skin PAST MEDICAL HISTORY Diagnosis Date ASHD (arteriosclerotic heart disease) 02/19/2015 Atrial fibrillation (HCC) 07/03/2011 Automatic implantable cardiac defibrillator in situ Petit's esophagus with esophagitis 03/01/2015 Benign neoplasm of colon Chronic diarrhea 09/16/2011 Coronary atherosclerosis of unspecified type of vessel, makah or graft s/p [place] in 1985 Diverticulosis of colon (without mention of hemorrhage) Duodenitis without mention of hemorrhage Dysphagia 03/01/2015 Facet arthritis of lumbar region 07/14/2017 GERD (gastroesophageal reflux disease) 06/10/12 Heart attack (HCC) Labyrinthitis 02/05/2010 Neurocardiogenic syncope 03/01/2015 Obesity 09/16/2011 JESSICA treated with BiPAP DME [employer] Other and unspecified hyperlipidemia Other specified forms of chronic ischemic heart disease Paroxysmal ventricular tachycardia (HCC) Snoring Stroke (HCC) Tinea of nail 01/13/2011 Type 2 diabetes mellitus with stage 3 chronic kidney disease, with long-term current use of insulin(HCC) 06/15/2017 Unspecified essential hypertension PAST SURGICAL HISTORY Procedure Laterality Date COLONOSCOPY FLX DX W/COLLJ SPEC WHEN PFRMD 12/21/2017 Dr. Anthony-repeat 3 years-11/2020 COLONOSCOPY W/BIOPSY SINGLE/MULTIPLE 02/21/2009 ESOPHAGOGASTRODUODENOSCOPY TRANSORAL DIAGNOSTIC EGD ESOPHAGOGASTRODUODENOSCOPY TR[facility]OPHAGOGASTRODUODENOSCOPY TRANSORAL DIAGNOSTIC 05/24/2015 EGD ESOPHAGOGASTRODUODENOSCOPY TRANSORAL DIAGNOSTIC 12/21/2017 Dr. Anthony-repeat 3 years-11/2020 HEART CATHETERIZATION 12/15/2014 [facility] - see scanned documents HEART SURGERY HX 1 stent LEFT HEART CATH,PERCUTANEOUS Cardiac cath, L heart LEFT HEART CATH,PERCUTANEOUS 06/20/2011 Cardiac cath, L heart PAST SURGICAL HISTORY OF ICD/ pacemaker at [facility] PERC TRANSL COR ANGIO Percutaneous Transluminal Coronary Angio Status REMV CATARACT EXTRACAP,INSERT LENS Bilateral 2020 Right corrected in 2020 and left 2018. ALLERGIES Morphine and Rocephin [Ceftriaxone Sodium] MEDICATIONS gabapentin (NEURONTIN) 300 mg capsule^Take 3 capsules by mouth three times daily for 90 days.^Disp:270 capsule^Rfl: 2 dulaglutide (TRULICITY) 3 mg/0.5 mL pen injector^Inject 3 mg subcutaneously one time a week.^Disp: 6 mL^Rfl: 3 lisinopril (ZESTRIL, PRINIVIL) 20 mg tablet^Take 1 tablet by mouth once daily.^Disp: 90 tablet^Rfl:3 famotidine (PEPCID) 20 mg tablet^Take 1 tablet by mouth daily at bedtime.^Disp: 90 tablet^Rfl: 1 flash glucose scanning reader (FREESTYLE FILI 2 READER)^Use to check blood sugar at least four (4)times daily.^Disp: 1 Each^Rfl: 0 flash glucose sensor (FREESTYLE FILI 2 SENSOR) kit^Apply new sensor every fourteen (14) days to upper arm.^Disp: 6 Each^Rfl: 4 clopidogrel (PLAVIX) 75 mg tablet^Take 1 tablet by mouth once daily.^Disp: 90 tablet^Rfl: 3 warfarin (COUMADIN) 3 mg tablet^3 mg every Mon, Wed, Fri; 6 mg all other days^Disp: 90 tablet^Rfl: 3 rOPINIRole (REQUIP) 0.5 mg tablet^Take 2 tablets by mouth daily at bedtime.^Disp: 180 tablet^Rfl: 3 insulin glargine (BASAGLAR KWIKPEN U-100 INSULIN) 100 unit/mL (3 mL)^Inject 30 Units subcutaneouslyevery morning AND 30 Units daily at bedtime. Patient Assistance Medication.^Disp: ^Rfl: FLUoxetine (PROZAC) 20 mg capsule^Take 1 capsule by mouth once daily.^Disp: 90 capsule^Rfl: 3 nortriptyline (PAMELOR) 25 mg capsule^Take 1 capsule by mouth daily at bedtime.^Disp: 90 capsule^Rfl: 3 insulin lispro (HUMALOG KWIKPEN INSULIN) 100 unit/mL^Inject 20 Units subcutaneously three times daily before meals. Plus sliding scale as directed ( 1 unit for every 50 mg/dL above 150 mg/dL)^Disp: ^Rfl: albuterol HFA (PROVENTIL HFA) 90 mcg/actuation inhaler^Inhale 2 Puffs as instructed every 4 hours while awake.^Disp: 1 Each^Rfl: 1 guaiFENesin (MUCINEX) 600 mg 12 hr tablet^Take 1 tablet by mouth twice daily.^Disp: 20 tablet^Rfl: 0 Insulin Syringe-Needle U-100 (BD ULTRAFINE INSULIN) 1 mL 31 gauge x 5/16^1 Each five times daily.^Disp: 450 Each^Rfl: 3 latanoprost (XALATAN) 0.005 % ophthalmic solution^Use 1 Drop in both eyes three times daily.^Disp: ^Rfl: colestipol (COLESTID) 1 gram tablet^Take 1 g by mouth twice daily.^Disp: ^Rfl: carvedilol (COREG) 3.125 mg tablet^Take 2 tablets by mouth twice daily. for one week starting on 06/20/16 then will be taking 6.25 x 2 daily .^Disp: ^Rfl: 0 BIPAP^Initiate BiPAP @ 24/18 cm of water with humidification. Mask (per patient preference), chin strap, filters, tubing / heated tubing, heated humidity and lifetime supplies. Dx. JESSICA G47.33 327.23 - fax compliance download to [phone]^Disp: 1 Device^Rfl: 0 flash glucose sensor (OneFoldSTYLE FILI 14 DAY SENSOR) kit^1 Each four times daily.^Disp: 1 Kit^Rfl: 11 spironolactone (ALDACTONE) 25 mg tablet^Take 1 tablet by mouth once daily.^Disp: ^Rfl: isosorbide mononitrate ER (IMDUR) 30 mg 24 hr tablet^Take 60 mg by mouth once daily. ^Disp: ^Rfl: 0 blood sugar diagnostic ([employer] BLOOD GLUCOSE SYSTEM) test strip^Use as instructed to check blood sugar 3 to 4 times daily DM: yes Insulin: yes DX:11.9^Disp: 400 Strip^Rfl: 3 fenofibrate nanocrystallized (TRICOR) 145 mg tablet^Take 1 tablet by mouth once daily.^Disp: ^Rfl: [address] (PROTONIX) 40 mg tablet^Take 40 mg by mouth once daily.^Disp: ^Rfl: Lancets (ONE TOUCH ULTRASOFT LANCETS) lancets^Use with CeDe Groupuch Glucometer as directed^Disp: 100 Each^Rfl: 3 Aspirin 81 mg ORAL Tab^Take 1 tablet by mouth once daily. Take with food.^Disp: 30 tablet^Rfl: 11 CRESTOR 40 MG TAB^Take one(1) tablet daily.^Disp: ^Rfl: 0 NITROGLYCERIN 0.3 MG SUBLINGUAL TAB^Dissolve 0.4 mg under the tongue. Usual dose for angina is 1 tablet every 5 minutes for maximum of 3 doses in 15 minutes. ^Disp: ^Rfl: 0 doxycycline monohydrate 100 mg tablet^Take 1 tablet by mouth twice daily for 7 days.^Disp: 14 tablet^Rfl: 0 mupirocin (BACTROBAN) 2 % ointment^Apply to affected area three times daily for 10 days.^Disp: 22 g^Rfl: 0 benzonatate (TESSALON PERLES) 100 mg capsule^Take 2 capsules by mouth three times daily as needed.^Disp: 30 capsule^Rfl: 0 (Patient not taking: Reported on 07/17/2021 ) benzonatate (TESSALON PERLES) 100 mg capsule^Take 2 capsules by mouth twice daily as needed for cough.^Disp: 40 capsule^Rfl: 0 (Patient not taking: Reported on 11/25/2021) furosemide (LASIX) 40 mg tablet^Take 2 tablets by mouth twice daily.^Disp: ^Rfl: Inzie-4-LWG-EPA-Fish Oil (FISH OIL) 1,000 mg (120 mg-180 mg) cap^Take 1 capsule by mouth once daily.^Disp: 90 capsule^Rfl: 3 FAMILY HISTORY Problem Relation Age of Onset Stroke Mother Heart Mother Cancer Father prostate Heart Father Breast Cancer Sister Breast Cancer Sister Diabetes Sister Diabetes Brother Diabetes Brother Social History Tobacco Use Smoking status: Former Types: Cigars Quit date: 08/12/2007 Years since quittin.2 Smokeless tobacco: Never Tobacco comments: 2-3 per day Vaping Use Vaping Use: Never used Substance Use Topics Alcohol use: No Drug use: No ROS Objective Blood pressure 144/80, pulse 88, temperature 36.6 C (97.8 F), resp. rate 16, weight 126.6 kg (279 lb), SpO2 99 %. Physical Exam Constitutional: General: He is not in acute distress. Appearance: He is not toxic-appearing or diaphoretic. HENT: Head: Normocephalic and atraumatic. Cardiovascular: Pulses: Dorsalis pedis pulses are 1+ on the right side. Posterior tibial pulses are 1+ on the right side. Pulmonary: Effort: Pulmonary effort is normal. No accessory muscle usage or respiratory distress. Musculoskeletal: Feet: Neurological: Mental Status: He is alert and oriented to person, place, and time. ASSESSMENT/PLAN: 1. Left foot infection - ICD9: 686.9, ICD10: L08.9 - Begin treatment with doxycycline Keep clean and covered Atb ointment and dsd applied. F/u with title specialist in 1 week Urgent f/u for worsening s/s. - DOXYCYCLINE MONOHYDRATE 100 MG TABLET - MUPIROCIN 2 % TOPICAL OINTMENT Agrees to plan Jens Wood APRN.CNP documented in this encounterLicking [facility]08-25-2022 Miscellaneous Notes* Telephone Encounter - May Martinez Ma - 11/21/2021 3:02 PM EDT The following approved medication requests have been transmitted electronically. Requested Prescriptions Signed Prescriptions Disp Refills gabapentin (NEURONTIN) 300 mg capsule 270 capsule 2 Sig: Take 3 capsules by mouth three times daily for 90 days. Authorizing Provider: TREV PATINO Ma * Telephone Encounter - Trev Patino MD - 11/21/2021 3:01 PM EDT OK to refill as ordered Trev Patino MD * Telephone Encounter - May Martinez Ma - 11/21/2021 1:19 PM EDT Last office visit: 08/09/21 F/u scheduled: 01/29/22 May Martinez Ma documented in this encounterLicking [facility] Hospital08-24-2022 Miscellaneous Notes* Telephone Encounter - Cholo Thorpe RPh - 11/20/2021 3:06 PM EDT A1c trending up. Patient also has recent s/sx of hypoglycemia therefore will re- assess BG readings at upcoming visit on 11/29 and consider insulin dose increase if blood sugars are not improved. No med changes at this time. Lab Results Component Value Date HBA1C 7.8 11/19/2021 HBA1C 7.3 08/17/2021 HBA1C 7.2 05/01/2021 HBA1C 7.2 03/04/2021 HBA1C 6.9 10/23/2020 Cholo Thorpe PharmD, BCACP Primary Care Clinical Pharmacist [facility] documented in this encounterLicking Memorial Hospital08-24-2022 Miscellaneous Notes* Telephone Encounter - Kelsie Cerrato RPh - 11/20/2021 10:53 AM EDT Uguru message sent for therapeutic range. Kelsie Cerrato PharmD documented in this encounterLicking Memorial Hospital08-16-2022 NoteHNO ID: [id number] Author: Lillian Rico, PT, DPT Service: ? Author Type: Physical Therapist Type: Progress Notes Filed: 11/12/2021 2:57 PM Note Text: [facility] Outpatient Physical Therapy [address] [place] [id number] Dept: [phone] Dept Start of Care Date: 11/12/21 Onset Date: 11/12/20 Plan of Care Certification Date: 12/20/20 Patient Identified by Name and Date of : Yes REHABILITATION AND SPORTS THERAPY PHYSICAL THERAPY SEATING AND WHEELED MOBILITY EVALUATION Persons Present at Evaluation: spouse Vendor Present: [employer] SUBJECTIVE: Lovely Devi is a 76 year old male seen today for wheelchair evaluation. Patient Goals: patient is here to obtain a wheelchair or power mobility device to increase function in the home environment. Current activities in the home and community that Lovely Devi feels are mobility limitations and would be improved with the use of a mobility device: toileting, bathing, transfers, gait, dressing, and community mobility PMH: AK (x 6 starting at age 38 with most recent 1.5 years ago), Atrial fibrillation, ASHD, Automatic implantable cardiac defibrillator, Coronary atherosclerosis, CHF, Neurocardiogenic syncope, Obesity, hx of Stroke, Paroxysmal ventricular tachycardia, Type 2 diabetes mellitus , HTN, Chronic right knee pain OBJECTIVE MEASURES WITH LEVEL OF FUNCTION: PHYSICAL STATUS: Height: 5'8'' Weight: 270 lbs Communication:able to verbally communicate needs Skin Integrity: intact; hx of mild abrasions on arms from falls and bumping into objects Cardio-Respiratory: How far does the patient demonstrate that he can walk and/or self propel a manual wheelchair before becoming short of breath? 20-30 ft approximately before becomes short of breath What ADL's make him short of breath? toileting, bathing, dressing, grooming/hygiene, transfers, home management (laundry/cleaning/cooking), and ambulation/mobility Vascular: Does the patient have edema of the UE/LE's: Yes The patient has edema present in bilateral LE's (Right moderate to severe, left mild) If yes, what treatments have been attempted? Elevation, lasix, compression socks FUNCTIONAL STATUS: Eating: independent Upper body Dressing: modified independent, from seated position, and increased time and effort Lower body Dressing: modified independent, from seated position, and increased time and effort Grooming: independent Toileting: modified independent and equipment used: grab bars Bathing: modified independent and sponge bathing Instrumental Activities of Daily Living: Requires assistance for: cooking, shopping, laundry, and cleaning Transfers: Modified Independent Method: stand pivot Ambulation: impaired: uses cane or rollator and history of falls, frequency: about 2 times a month. How far can he walk without stopping before his symptoms interfere? 300 ft with rollator and increased effort and SOB Why is his current assistive device no longer sufficient for mobility in the home? Hx of falls with use of cane. Still becomes very short of breath with ambulation and ADL's when using rollator. Shortness of breath occurs after less then 30 feet of ambulation despite using rollator. Progression of ambulation difficulty over time: Patient has been struggling with mobility and ambulation and shortness of breath over the last year with worsening over the last year. Transportation: car and drives independently using foot controls / hand controls LIVING SITUATION: Entrance/Exit used: ramped SEATING EVALUATION (edge of mat / in current wheelchair): Sitting posture: R leg abducted, L leg abducted, and mildly Kyphotic Sitting Balance: Good: able to maintain balance without support, accepts min/mod challenge, and can shift weight although limitations are present. Pelvic Mobility Anterior/Posterior: flexible and neutral achieved Rotation: flexible and neutral achieved Obliquity: flexible and neutral achieved LOWER EXTREMITY FUNCTION ROM: Hip flexion 90 degrees R 90 degrees L Knee flexion 90 degrees R 90 degrees L Ankle: Right: neutral R Left: neutral L (L AFO intact) Muscle Tone: normal Muscle Strength Limitations: RIGHT LEFT Hip flexion 3+/5 3+/5 Knee flexion 4-/5 4+/5 Knee extension 3+/5 4+/5 Ankle dorsiflexion 4+/5 4-/5 LE Sensation: WFL UPPER EXTREMITY FUNCTION: ROM Limitations: WFL Muscle Tone: normal Muscle Strength Limitations: RIGHT LEFT Shoulder flexion 4/5 4/5 Shoulder abduction 4+/5 4+/5 Elbow flexion 3+/5 4/5 Elbow extension 4/5 4/5 Wrist flexion 3+/5 4+/5 Wrist extension 3+/5 5/5 Poultry Veterinarian strength WFL WFL Hand Dexterity: WFL UE sensation: WFL Head Control and Position Control: good Position: neutral Head Control Against [place]: able to maintain line of sight against gravity PRESSURE MANAGEMENT ISSUES RISK FACTORS PRESENT: 1. Sensory percep (more content not included)...[facility] [id number] History of Present illness Narrative* May Garcia RN - 11/11/2021 3:37 PM EDT inSight CDM Escalation Follow Up Action/FYI: Contact made with patient: Patient identified by name and Discussed care with patient Patient Escalated to Virtualist on: 11/07/21 Reason for Escalation: Chronic combined systolic and diastolic congestive heart failure Virtualist Intervention: None, patient scheduled with pulmonary the next day. Dr Del Ayala. Disposition: Patient stable no further interventions documented in this encounterLicking [facility] Hospital08-12-2022 Miscellaneous Notes* Telephone Encounter - Cholo Thorpe RPh - 11/08/2021 11:17 AM EDT Attempted to call patient for today's scheduled pharmacy phone follow up. Not able to reach after several attempts. Appointment notes list daughters phone. Contacted and Left voicemail on that line Cholo Thorpe PharmD Primary Care Clinical Pharmacist [facility] documented in this encounterLicking [facility] Hospital08-12-2022 History of Present illness Narrative* Cholo FelipejonhAdam - 11/08/2021 11:00 AM EDT Primary Care Pharmacy Visit REASON FOR CONSULT: DM GOALS: A1c < 7% CONSULTING PROVIDER: Ramiro Null APRN.FAIZA FRIAS Date of Consult: reference in progress note 08/03/20 Lovely Devi is a 76 year old male presenting for follow up visit by telephone. Patient consents to pharmacy collaborative practice agreement. Last seen by PCP, Dr. Ramiro Null APRN.FAIZA FRIAS on 08/09/21. At last PharmD visit on 09/06, Basaglar dose was decreased due to hypoglycemia. INTERIM HISTORY: Reports low blood sugars several times a month Typically skipping midday meal, causing hypoglycemia to occur midday Total events 7 events of hypoglycemia 2 events overnight 3 - 12 pm 2- 2 pm Requests Trulicity refill Current DM Medications: Dulaglutide (Trulicity) 3 mg once weekly Insulin lispro (Humalog) 20 units three times daily before meals + Sliding Scale (1 units for every50 mg/dL above 150 mg/dL) Insulin glargine (Basaglar) 30 units in the morning and 30 units in the evening Preventative Medications: On NIYA/ARB: Yes On Statin: Yes GLYCEMIC CONTROL: Summary of CGM Findings: (last 14 days) 1- CGM recording is adequate for interpretation 2- Average glucose is 168 mg/dL. 12 - 6 am: 164 mg/dL 6 am -12pm: 154 mg/dL 12pm - 6 pm: 145 mg/dL 6pm - 12am: 286 mg/dL 3- Total frequency of hypoglycemia: 3% 4- Nocturnal hypoglycemia was noted. 5- Hyperglycemic episodes: 57% 6- Time in target range (70-180 mg/dL): 40% ROS: Patient denies CP, SOB, FAITH, blurred vision, dizziness or lightheadedness Patient denies nausea, vomiting, diarrhea, abdominal pain Patient denies symptoms of hypoglycemia (sweating, anxiety, palpitations, hunger, and tremor) Patient denies symptoms of hyperglycemia (polyuria, polydipsia, polyphagia) Patient denies potential medication adverse effects DIET/EXERCISE/SOCIAL Hx: Mostly 2 meals: breakfast and dinner Breakfast: 2 eggs and ham and coffee Lunch: skips Dinner: chicken and veggies or hamburger without bun Snacks: denies Beverages: occasional soda, coffee and water Exercise: limited, having more difficulty getting around MEDICATIONS: Adherence: denies missed doses. 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 Esophageal Reflux Benign Neoplasm of Colon Dermatophytosis of Nail Paroxysmal Atrial Fibrillation (Hcc) Anticoagulated On Coumadin Class 3 Severe Obesity With Serious Comorbidity and Body Mass Index (Bmi) of 40.0 to 44.9 in Adult (Hcc) Stasis Dermatitis of Both Legs Foot Callus Hyperlipidemia Ldl Goal <100 Ashd (Arteriosclerotic Heart Disease) Neurocardiogenic Syncope 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 With Stage 3a Chronic Kidney Disease, With Long-Term Current Use of Insulin (Hcc) Facet Arthritis of Lumbar Region Adenopathy Atrial Flutter (Hcc) Balanitis Coronary Angioplasty Status History of Deep Venous Thrombosis History of Non-St Elevation Myocardial Infarction (Nstemi) Ischemic Cardiomyopathy Jessica (Obstructive Sleep Apnea) Restless Leg Syndrome 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, With Long-Term Current Use of Insulin (Hcc) 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 and Stage 3a Chronic Kidney Disease (Hcc) 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 At Moderate Risk for Fall Chronic Pain of Both Knees Stage 3a Chronic Kidney Disease (Hcc) PAST MEDICAL HISTORY Diagnosis Date ASHD (arteriosclerotic heart disease) 02/19/2015 Atrial fibrillation (HCC) 07/03/2011 Automatic implantable cardiac defibrillator in situ Petit's esophagus with esophagitis 03/01/2015 Benign neoplasm of colon Chronic diarrhea 09/16/2011 Coronary atherosclerosis of unspecified type of vessel, makah or graft s/p [place] in 1985 Diverticulosis of colon (without mention of hemorrhage) Duodenitis without mention of hemorrhage Dysphagia 03/01/2015 Facet arthritis of lumbar region 07/14/2017 GERD (gastroesophageal reflux disease) 06/10/12 Heart attack (HCC) Labyrinthitis 02/05/2010 Neurocardiogenic syncope 03/01/2015 Obesity 09/16/2011 JESSICA treated with BiPAP DME [employer] Other and unspecified hyperlipidemia Other specified forms of chronic ischemic heart disease Paroxysmal ventricular tachycardia (HCC) Snoring Stroke (HCC) Tinea of nail 01/13/2011 Type 2 diabetes mellitus with stage 3 chronic kidney disease, with long-term current use of insulin(HCC) 06/15/2017 Unspecified essential hypertension ALLERGIES Allergen Reactions Morphine Rocephin [Ceftriaxo* Other: See Comments Hot flashes; redness to skin Current Outpatient Medications Medication Sig lisinopril (ZESTRIL, PRINIVIL) 20 mg tablet Take 1 tablet by mouth once daily. famotidine (PEPCID) 20 mg tablet Take 1 tablet by mouth daily at bedtime. flash glucose scanning reader (OneFoldSTYLE FILI 2 READER) Use to check blood sugar at least four (4)times daily. flash glucose sensor (FREESTYLE FILI 2 SENSOR) kit Apply new sensor every fourteen (14) days to upper arm. clopidogrel (PLAVIX) 75 mg tablet Take 1 tablet by mouth once daily. warfarin (COUMADIN) 3 mg tablet 3 mg every Mon, Wed, Fri; 6 mg all other days rOPINIRole (REQUIP) 0.5 mg tablet Take 2 tablets by mouth daily at bedtime. insulin glargine (BASAGLAR KWIKPEN U-100 INSULIN) 100 unit/mL (3 mL) Inject 30 Units subcutaneouslyevery morning AND 30 Units daily at bedtime. Patient Assistance Medication. gabapentin (NEURONTIN) 300 mg capsule Take 3 capsules by mouth three times daily for 30 days. benzonatate (TESSALON PERLES) 100 mg capsule Take 2 capsules by mouth three times daily as needed. (Patient not taking: Reported on 07/17/2021 ) FLUoxetine (PROZAC) 20 mg capsule Take 1 capsule by mouth once daily. nortriptyline (PAMELOR) 25 mg capsule Take 1 capsule by mouth daily at bedtime. insulin lispro (HUMALOG KWIKPEN INSULIN) 100 unit/mL Inject 20 Units subcutaneously three times daily before meals. Plus sliding scale as directed ( 1 unit for every 50 mg/dL above 150 mg/dL) albuterol HFA (PROVENTIL HFA) 90 mcg/actuation inhaler Inhale 2 Puffs as instructed every 4 hours while awake. paoloFENesin (MUCINEX) 600 mg 12 hr tablet Take 1 tablet by mouth twice daily. benzonatate (TESSALON PERLES) 100 mg capsule Take 2 capsules by mouth twice daily as needed for cough. (Patient not taking: Reported on 07/11/2021 ) dulaglutide (TRULICITY) 3 mg/0.5 mL pen injector Inject 3 mg subcutaneously one time a week. furosemide (LASIX) 40 mg tablet Take 2 tablets by mouth twice daily. Elsfu-3-EPX-EPA-Fish Oil (FISH OIL) 1,000 mg (120 mg-180 mg) cap Take 1 capsule by mouth once daily. Insulin Syringe-Needle U-100 (BD ULTRAFINE INSULIN) 1 mL 31 gauge x / 1 Each five times daily. latanoprost (XALATAN) 0.005 % ophthalmic solution Use 1 Drop in both eyes three times daily. colestipol (COLESTID) 1 gram tablet Take 1 g by mouth twice daily. carvedilol (COREG) 3.125 mg tablet Take 2 tablets by mouth twice daily. for one week starting on 06/20/16 then will be taking 6.25 x 2 daily . BIPAP Initiate BiPAP @ 24/18 cm of water with humidification. Mask (per patient preference), chin strap, filters, tubing / heated tubing, heated humidity and lifetime supplies. Dx. JESSICA G47.33 327.23 - fax compliance download to [phone] flash glucose sensor (FREESTYLE FILI 14 DAY SENSOR) kit 1 Each four times daily. spironolactone (ALDACTONE) 25 mg tablet Take 1 tablet by mouth once daily. isosorbide mononitrate ER (IMDUR) 30 mg 24 hr tablet Take 60 mg by mouth once daily. blood sugar diagnostic ([employer] BLOOD GLUCOSE SYSTEM) test strip Use as instructed to check blood sugar 3 to 4 times daily DM: yes Insulin: yes DX:11.9 fenofibrate nanocrystallized (TRICOR) 145 mg tablet Take 1 tablet by mouth once daily. pantoprazole DR (PROTONIX) 40 mg tablet Take 40 mg by mouth once daily. Lancets (ONE TOUCH ULTRASOFT LANCETS) lancets Use with CeDe Groupuch Glucometer as directed Aspirin 81 mg ORAL Tab Take 1 tablet by mouth once daily. Take with food. CRESTOR 40 MG TAB Take one(1) tablet daily. NITROGLYCERIN 0.3 MG SUBLINGUAL TAB Dissolve 0.4 mg under the tongue. Usual dose for angina is 1 tablet every 5 minutes for maximum of 3 doses in 15 minutes. Current Facility-Administered Medications Medication Dose Route Frequency perflutren lipid microspheres 1.3 mL in NaCl (PF) 0.9% 10 mL injection (DEFINITY) INTRAVENOUS DIRECTED PRN sodium chloride 0.9 % (flush) 10 mL (BD POSIFLUSH) 10 mL INTRAVENOUS DIRECTED PRN EXAM: Last 3 Encounter BP Readings: Date: BP: 08/09/2021 138/78 07/29/2021 128/80 07/17/2021 120/72 Wt: 122.5 kg (270 lb) BMI: 41.05 kg/(m^2) LABS: Lab Results Component Value Date HBA1C 7.3 08/17/2021 HBA1C 7.2 05/01/2021 HBA1C 7.2 03/04/2021 HBA1C 6.9 10/23/2020 CMP: Glucose 181 02/19/2021 BUN 28 02/19/2021 Creatinine 1.40 02/19/2021 Sodium 139 02/19/2021 Potassium 4.4 02/19/2021 Chloride 100 02/19/2021 CO2 27 02/19/2021 Protein, Total 7.0 02/19/2021 Albumin 4.1 02/19/2021 Calcium 9.5 02/19/2021 Alkaline Phosphatase 75 02/19/2021 Bilirubin, Total 0.4 02/19/2021 AST 41 02/19/2021 ALT 46 02/19/2021 Creatinine clearance cannot be calculated (Patient's most recent lab result is older than the maximum 180 days allowed.) GFR (mL/MIN) Date Value 01/04/2020 54 eGFR- (no units) Date Value 02/19/2021 60 EGFR: 49 mL/min/1.73m2 Vitamin B12 Date Value Ref Range Status 12/17/2018 384 232 - 1,245 pg/mL Final Lab Results Component Value Date CHOL 95 08/17/2021 CHOL 117 04/23/2020 LDL 26 08/17/2021 LDL 47 04/23/2020 HDL 31 08/17/2021 HDL 32 04/23/2020 TG 189 08/17/2021 TG 192 04/23/2020 The ASCVD Risk score ([place] CLOTILDE Jr., et al., 2013) failed to calculate for the following reasons: The valid total cholesterol range is 130 to 320 mg/dL Albumin/Creat Ratio (mg/g) Date Value 05/01/2021 Not calculated PHARMACOTHERAPY ASSESSMENT/PLAN: 1. Type 2 diabetes mellitus with diabetic neuropathy, with long-term current use of insulin ([facility]) -ICD9: 250.60, 357.2, V58.67, ICD10: E11.40, Z79.4 A1c goal < 7%; almost at goal (last A1c 7.3%); SMBG elevated on current regimen; reports s/sx hypoglycemia; denies s/sx hyperglycemia; Low blood sugars likely occurring related to skipped mid day meals. Today, discussed adding midday meal or snack to prevent hypoglycemia. Continued same regimen and will recheck A1c. CONTINUE Insulin glargine (Basaglar) 30 units in the morning and 30 units in evening CONTINUE Dulaglutide (Trulicity) 3 mg once weekly, Insulin lispro (Humalog) 20 units three times daily before meals + Sliding Scale (1 units for every 50 mg/dL above 150 mg/dL) HbA1c: due now - HGB A1C - TRULICITY 3 MG/0.5 ML SUBCUTANEOUS PEN INJECTOR Follow up: Patient is scheduled to see PCP on 01/29/22. Patient to follow up with PharmD on 11/29/21. Patient verbalized understanding of instructions. Cholo Thorpe PharmD, BCACP Primary Care Clinical Pharmacist [facility] The majority of the pharmacy visit (> 50%) was spent counseling and/or coordinating care for thepatient. [Telephonic] time was 20 minutes. documented in this encounterLicking Memorial Hospital08-11-2022 History of Present illness Narrative* Federico Holt MD - 11/07/2021 12:31 PM EDT Virtualist Distance Health Note (for inSight community monitoring and CC HC escalations) Adult seen for Monitoring Track: Chronic Disease Management Contacted by phone, [email or web address], [employer], [employer], [employer], [employer], [employer], other: phone History of present illness: Patient with obesity, CAD, DM, PAF, CHF. He says his breathing is worse. He denies increased swelling. His complaint is primarily SOB with exertion. He denies increased weight. He is stable at rest. He denies fever. He has an appointment with pulmonary tomorrow. I advised him to not change anythingand wait for pulmonary assessment tomorrow after listening to his lungs. Past medical history, past surgical history, family history and social history reviewed and updatedas indicated in EMR. REVIEW OF SYSTEMS: Review of Systems VITAL SIGNS: (if available) There were no vitals taken for this visit. Physical Exam (if video visit was performed) Physical Exam Assessment/Plan: ASSESSMENT/PLAN: 1. Chronic combined systolic and diastolic congestive heart failure (HCC) - ICD9: 428.42, 428.0, ICD10: I50.42 Unsure if this is cardiac or pulmonary. I would wait until evaluated tomorrow by pulmonary. Federico Holt Disposition: Patient remains at home A total of 11 minutes was spent providing medical care using telemedicine. [place] [id number] association Signed in as Primary Virtualist, Secondary Virtualist, or [facility] Telehealth provider: Primary SIGNATURE: Federico Holt MD PATIENT NAME: Lovely Devi DATE: November 07, 2021 documented in this encounterLicking Memorial Hospital08-11-2022 History of Present illness Narrative* Tracie Castle RN - 11/07/2021 12:08 PM EDT INSIGHT CDM ESCALATION Provider Action/FYI: CHF CKD Escalation for SOB and inability to lie flat Sees cardiology and pulmonary at [place]. Next family med appt 01/29/22 SOB increase x 7days. Significant decrease in activity tolerance ( can't walk more than 15-20 feet before having to sit down). Recovery takes longer than 5 minutes. States weight has stayed around 270-272. No increase cough. I just can't get my breath . Difficulty sleeping due to SOB. Unchanged from using 2 pillows. LE edema- unchanged; states leg elevation doesn't really help . I take 3 water pills Takes Lasix 40 mg daily and Aldactone 25 mg Reports has pulmonary appt tomorrow. Last visit to classified ad taker 3-4 months ago. Encouraged to schedule follow up Escalated to virtualist for increased SOB x 7 days with noted decline in activity tolerance. Message received via: InSight - Yes contact made with patient ACTION TAKEN: Based on director of estate, the following disposition is advised: Urgent / [place] [phone] and indicate 'CDM patient', MRN, Patient Name, Patient Concern, and patient's preferred method of contact (telephone, FaceTime, Google Duo), your name, your contact number. Informed patient that you recommend further assessment from a provider to review symptoms. I have sent a page for the provider to contact you today. If you haven't heard from that provider and still have concerns, please contact you PCP's office right away. Indicated CDM patient and symptoms in the FYI box and sent alpha page to Virtualist to to contact the patient.Route as 'high priority' to Cashist nuclear weapons mechanical specialist - End outreach. documented in this encounterLicking [facility] Hospital08-10-2022 Miscellaneous Notes* Telephone Encounter - Kelsie Cerrato RPh - 11/06/2021 10:55 AM EDT MyChart message sent for INR result nearly in range. Kelsie Cerrato PharmD documented in this encounterLicking [facility] Hospital07-27-2022 Miscellaneous Notes* Telephone Encounter - Kelsie Cerrato RPh - 10/23/2021 10:17 AM EDT MyChart message sent for therapeutic INR. documented in this encounterLicking Memorial Hospital07-27-2022 Miscellaneous Notes* Telephone Encounter - May Garza [facility] - 10/23/2021 9:24 AM EDT Left VM for the patient to confirm up coming visit. Patient is scheduled for a wheel chair evaluation on 11/12/21 at 2 pm. documented in this encounterLicking Memorial Hospital07-25-2022 History of Present illness Narrative* Tracie Castle RN - 10/21/2021 12:47 PM EDT INSIGHT CDM ESCALATION Provider Action/FYI: CHF CKD CM Escalation to pool for increased weight gain Per chart review- sees cardiology and pulmonology at [place] Next PCP appt 01/29/22 - to establish/transfer care Has pharmacy phone call for DM management- 11/08/21 Patient states weight has not increased. Notes today - 272 lbs. [facility] (08/09/21). Reports LE edema that is unchanged, not increased. States it is always there. Reports leg elevation does not help. States SOB is at baseline. Shared that he saw classified ad taker a couple of months ago . Declines need for further intervention at this time. Declines virtualist.. Reviewed signs/symptoms to reach out to providers, Including weight gain, increased SOB, edema or chest pain. Reviewed importance of being proactive when symptoms start/increase. Patient states he will reach out to classified ad taker should concerns increase. Appreciative of call. Message received via: InSight - Yes contact made with patient ACTION TAKEN: Based on director of estate, the following disposition is advised: SYMPTOMS PRESENT NOT SEVERE: No action required - Continue outreach / Phone Call documented in this encounterLicking Memorial Hospital07-13-2022 Miscellaneous Notes* Addendum Note - Ariana Freeman MA - 10/09/2021 11:24 AM EDT Addended by: ARIANA FREEMAN on: 10/09/2021 11:24 AM Modules accepted: Orders * Telephone Encounter - Ariana Freeman MA - 10/09/2021 11:06 AM EDT Will route to Dr. Patino. Repended med orders so scripts can be sent in office & faxed immediately. Ariana Freeman MA * Telephone Encounter - Cholo Thorpe RPh - 10/07/2021 4:23 PM EDT Patient would like to upgrade from Fili 14 day to the Fili 2 reader plus sensor kit. He uses [facility] for supplies. Please approved pended orders as printed RX. Once provider has signed, please fax orders to [facility] . Pending Prescriptions Disp Refills FREESTYLE FILI 2 READER 1 Each 0 Sig: Use to check blood sugar at least four (4) times daily. ZBIGNIEW: No FREESTYLE FILI 2 SENSOR KIT 6 Each 4 Sig: Apply new sensor every fourteen (14) days to upper arm. ZBIGNIEW: No Cholo Thorpe PharmD, BCACP Primary Care Clinical Pharmacist [facility] documented in this encounterLicking Memorial Hospital07-12-2022 Miscellaneous Notes* Telephone Encounter - Jaun Hinson APRN.RODRIGUEZ - 10/08/2021 2:53 PM EDT The following approved medication requests have been transmitted electronically. Pending Prescriptions Disp Refills CLOPIDOGREL 75 MG TABLET 90 tablet 3 Sig: Take 1 tablet by mouth once daily. ZBIGNIEW: No Jaun Hinson APRN.CNP * Telephone Encounter - Ronen Avery LPN - 10/08/2021 2:47 PM EDT Patient phones requesting refills as follows: Pending Prescriptions Disp Refills CLOPIDOGREL 75 MG TABLET 90 tablet 3 Sig: Take 1 tablet by mouth once daily. ZBIGNIEW: No CALVIN 08/09/21 NOV 01/29/22 to [facility] Care with Dr. Patino Please review and advise. Ronen Avery LPN documented in this encounterLicking Memorial Hospital07-08-2022 Miscellaneous Notes* Telephone Encounter - Fahad Cid RN - 10/04/2021 9:56 AM EDT Uguru message sent to patient. documented in this encounterLicking Memorial Hospital06-15-2022 Miscellaneous Notes* Telephone Encounter - Kelsie Cerrato [facility] - 09/11/2021 1:24 PM EDT [facility] Anticoagulation Episode Summary Anticoagulation Care Providers Provider Role Specialty Phone number Gilbert Keyes III, MD Family Practice Lovely Devi is a 75 year old year old male patient being evaluated today for a Telemanagement visit. Patient is currently on the following anticoagulant(s) Warfarin. Labs PT INR (no units) Date Value 07/03/2021 2.7 (biotel) 06/19/2021 2.6 (biotel) 06/05/2021 3.3 (biotel) INR Home CoaguChek (no units) Date Value 09/11/2021 1.9 08/29/2021 4.0 08/14/2021 3.7 Hemoglobin (g/dL) Date Value 02/19/2021 11.3 Hematocrit (%) Date Value 02/19/2021 37.1 Platelet Count (k/uL) Date Value 02/19/2021 163 Creatinine (mg/dL) Date Value 02/19/2021 1.40 09/21/2020 1.74 09/14/2020 1.82 Bilirubin, Total (mg/dL) Date Value 02/19/2021 0.4 ALT (U/L) Date Value 02/19/2021 46 AST (U/L) Date Value 02/19/2021 41 CrCl cannot be calculated (Patient's most recent lab result is older than the maximum 180 days allowed.). ALLERGIES Allergen Reactions Morphine Rocephin [Ceftriaxo* Other: See Comments Hot flashes; redness to skin Indication for Warfarin: Paroxysmal atrial fibrillation (hcc) Anticoagulated on coumadin Anticoagulation Episode Summary Current INR goal: 2.0-3.0 Assessment: INR result of 1.9 is SUBtherapeutic due to: unknown cause - did not speak to patient Plan: Called and was unable to leave voice message Advised patient to continue current weekly dose Next home INR check scheduled on 09/25 Will send a [employer] Kelsie Cerrato RPh Clinical Pharmacist, Pharmacy Anticoagulation Clinic Pharmacy Anticoagulation Clinic Pager: [phone] . documented in this encounterLicking Memorial Hospital06-14-2022 Miscellaneous Notes* Telephone Encounter - Jaun Hinson APRN.CNP - 09/10/2021 12:27 PM EDT The following approved medication requests have been transmitted electronically. Pending Prescriptions Disp Refills WARFARIN 3 MG TABLET 90 tablet 3 Si mg every Mon, Wed, Fri; 6 mg all other days ZBIGNIEW: No Jaun Hinson APRN.CNP * Telephone Encounter - Ashley Ellis Ma - 09/10/2021 8:55 AM EDT Patient has been identified by name and date of : Yes Pending Prescriptions Disp Refills WARFARIN 3 MG TABLET Si mg every Mon, Wed, Fri; 6 mg all other days ZBIGNIEW: No RX INSTRUCTIONS: Patient aware RX will be sent to pharmacy. No need to notify patient. Ashley Ellis Ma documented in this encounterLicking Memorial Hospital06-13-2022 Miscellaneous Notes* Telephone Encounter - May Martinez Ma - 09/09/2021 8:38 AM EDT This was addressed via [employer] message today. May Martinez Ma documented in this encounterLicking Memorial Hospital06-13-2022 Miscellaneous Notes* Telephone Encounter - Shereen Holt APRN.CNP - 09/09/2021 8:24 AM EDT The following approved medication requests have been transmitted electronically. Signed Prescriptions Disp Refills rOPINIRole (REQUIP) 0.5 mg tablet 180 tablet 3 Sig: Take 2 tablets by mouth daily at bedtime. ZBIGNIEW: No Shereen Holt APRN.CNP * Telephone Encounter - May Martinez Ma - 09/09/2021 8:01 AM EDT Rx was done at [facility]. Pt needs refill. May Martinez Ma documented in this encounterLicking [facility] Hospital06-10-2022 History of Present illness Narrative* Cholo Thorpe, [facility] - 09/06/2021 11:00 AM EDT Primary Care Pharmacy Visit REASON FOR CONSULT: DM GOALS: A1c < 7% CONSULTING PROVIDER: Ramiro Null APRN.CNP, DNP Date of Consult: reference in progress note 08/03/20 Lovely Devi is a 75 year old male presenting for follow up visit by telephone. Patient consents to pharmacy collaborative practice agreement. Last seen by PCP, Dr. Ramiro Null APRN.CNP, DNP on 08/09/21. At last PCP appt, patient noted difficulty moving around and requested wheelchair evaluation, he was referred to physical therapy. INTERIM HISTORY: Patient reports readings are mostly unchanged (see CGM data below) Limited activity, has hard time getting around. Looking into getting a wheelchair Diet unchanged Current DM Medications: Dulaglutide (Trulicity) 3 mg once weekly Insulin lispro (Humalog) 20 units three times daily before meals + Sliding Scale (1 units for every50 mg/dL above 150 mg/dL) Insulin glargine (Basaglar) 32 units in the morning and 32 units in the evening Preventative Medications: On NIYA/ARB: Yes On Statin: Yes GLYCEMIC CONTROL: SMBG s: Summary of CGM Findings: (last 14 days) 1- CGM recording is adequate for interpretation 2- Average glucose is 171 mg/dL. 12 - 6 am: 159 mg/dL 6 am -12pm: 175 mg/dL 12pm - 6 pm: 176 mg/dL 6pm - 12am: 173 mg/dL 3- Total frequency of hypoglycemia:2% 4- Nocturnal hypoglycemia was noted. 5- Hyperglycemic episodes: 44% 6- Time in target range (70-180 mg/dL): 54% ROS: Patient denies CP, SOB, FAITH, blurred vision, dizziness or lightheadedness Patient denies nausea, vomiting, diarrhea, abdominal pain Patient denies symptoms of hypoglycemia (sweating, anxiety, palpitations, hunger, and tremor) Patient denies symptoms of hyperglycemia (polyuria, polydipsia, polyphagia) Patient denies potential medication adverse effects DIET/EXERCISE/SOCIAL Hx: Mostly 2 meals: breakfast and dinner Breakfast: 2 eggs and ham and coffee Lunch: skips Dinner: chicken/s and veggies or hamburger without bun Snacks: denies Beverages: occasional soda, coffee and water Exercise: limited, having more difficulty getting around MEDICATIONS: Adherence: denies missed doses. 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 Esophageal Reflux Benign Neoplasm of Colon Dermatophytosis of Nail Paroxysmal Atrial Fibrillation ([facility]) Anticoagulated On Coumadin Class 3 Severe Obesity With Serious Comorbidity and Body Mass Index (Bmi) of 40.0 to 44.9 in Adult ([facility]) Stasis Dermatitis of Both Legs Foot Callus Hyperlipidemia Ldl Goal <100 Ashd (Arteriosclerotic Heart Disease) Neurocardiogenic Syncope 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 With Stage 3a Chronic Kidney Disease, With Long-Term Current Use of Insulin ([facility]) Facet Arthritis of Lumbar Region Adenopathy Atrial Flutter ([facility]) Balanitis Coronary Angioplasty Status History of Deep Venous Thrombosis History of Non-St Elevation Myocardial Infarction ([facility]) Ischemic Cardiomyopathy Jessica (Obstructive Sleep Apnea) Restless Leg Syndrome 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, With Long-Term Current Use of Insulin ([facility]) 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 and Stage 3a Chronic Kidney Disease ([facility]) 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 At Moderate Risk for Fall Chronic Pain of Both Knees Stage 3a Chronic Kidney Disease (Hcc) PAST MEDICAL HISTORY Diagnosis Date ASHD (arteriosclerotic heart disease) 02/19/2015 Atrial fibrillation (HCC) 07/03/2011 Automatic implantable cardiac defibrillator in situ Petit's esophagus with esophagitis 03/01/2015 Benign neoplasm of colon Chronic diarrhea 09/16/2011 Coronary atherosclerosis of unspecified type of vessel, makah or graft s/p [place] in 1985 Diverticulosis of colon (without mention of hemorrhage) Duodenitis without mention of hemorrhage Dysphagia 03/01/2015 Facet arthritis of lumbar region 07/14/2017 GERD (gastroesophageal reflux disease) 06/10/12 Heart attack (HCC) Labyrinthitis 02/05/2010 Neurocardiogenic syncope 03/01/2015 Obesity 09/16/2011 JESSICA treated with BiPAP DME [facility] Other and unspecified hyperlipidemia Other specified forms of chronic ischemic heart disease Paroxysmal ventricular tachycardia (HCC) Snoring Stroke ([facility]) Tinea of nail 01/13/2011 Type 2 diabetes mellitus with stage 3 chronic kidney disease, with long-term current use of insulin([facility]) 06/15/2017 Unspecified essential hypertension ALLERGIES Allergen Reactions Morphine Rocephin [Ceftriaxo* Other: See Comments Hot flashes; redness to skin Current Outpatient Medications Medication Sig warfarin (COUMADIN) 3 mg tablet 3 mg every Mon, Wed, Fri; 6 mg all other days famotidine (PEPCID) 20 mg tablet Take 1 tablet by mouth daily at bedtime. rOPINIRole (REQUIP) 0.5 mg tablet Take 2 tablets by mouth daily at bedtime. gabapentin (NEURONTIN) 300 mg capsule Take 3 capsules by mouth three times daily for 30 days. benzonatate (TESSALON PERLES) 100 mg capsule Take 2 capsules by mouth three times daily as needed. (Patient not taking: Reported on 07/17/2021 ) FLUoxetine (PROZAC) 20 mg capsule Take 1 capsule by mouth once daily. insulin glargine (BASAGLAR KWIKPEN U-100 INSULIN) 100 unit/mL (3 mL) Inject 32 Units subcutaneouslyevery morning AND 32 Units daily at bedtime. nortriptyline (PAMELOR) 25 mg capsule Take 1 capsule by mouth daily at bedtime. insulin lispro (HUMALOG KWIKPEN INSULIN) 100 unit/mL Inject 20 Units subcutaneously three times daily before meals. Plus sliding scale as directed ( 1 unit for every 50 mg/dL above 150 mg/dL) albuterol HFA (PROVENTIL HFA) 90 mcg/actuation inhaler Inhale 2 Puffs as instructed every 4 hours while awake. guaiFENesin (MUCINEX) 600 mg 12 hr tablet Take 1 tablet by mouth twice daily. benzonatate (TESSALON PERLES) 100 mg capsule Take 2 capsules by mouth twice daily as needed for cough. (Patient not taking: Reported on 07/11/2021 ) dulaglutide (TRULICITY) 3 mg/0.5 mL pen injector Inject 3 mg subcutaneously one time a week. furosemide (LASIX) 40 mg tablet Take 2 tablets by mouth twice daily. Jczum-2-SMQ-EPA-Fish Oil (FISH OIL) 1,000 mg (120 mg-180 mg) cap Take 1 capsule by mouth once daily. lisinopril (ZESTRIL, PRINIVIL) 20 mg tablet Take 1 tablet by mouth once daily. clopidogrel (PLAVIX) 75 mg tablet Take 1 tablet by mouth once daily. Insulin Syringe-Needle U-100 (BD ULTRAFINE INSULIN) 1 mL 31 gauge x 5/16 1 Each five times daily. latanoprost (XALATAN) 0.005 % ophthalmic solution Use 1 Drop in both eyes three times daily. colestipol (COLESTID) 1 gram tablet Take 1 g by mouth twice daily. carvedilol (COREG) 3.125 mg tablet Take 2 tablets by mouth twice daily. for one week starting on 06/20/16 then will be taking 6.25 x 2 daily . BIPAP Initiate BiPAP @ 24/18 cm of water with humidification. Mask (per patient preference), chin strap, filters, tubing / heated tubing, heated humidity and lifetime supplies. Dx. JESSICA G47.33 327.23 - fax compliance download to [phone] flash glucose sensor (FREESTYLE FILI 14 DAY SENSOR) kit 1 Each four times daily. spironolactone (ALDACTONE) 25 mg tablet Take 1 tablet by mouth once daily. isosorbide mononitrate ER (IMDUR) 30 mg 24 hr tablet Take 60 mg by mouth once daily. blood sugar diagnostic ([employer] BLOOD GLUCOSE SYSTEM) test strip Use as instructed to check blood sugar 3 to 4 times daily DM: yes Insulin: yes DX:11.9 fenofibrate nanocrystallized (TRICOR) 145 mg tablet Take 1 tablet by mouth once daily. pantoprazole DR (PROTONIX) 40 mg tablet Take 40 mg by mouth once daily. Lancets (ONE TOUCH ULTRASOFT LANCETS) lancets Use with On[employer] Glucometer as directed Aspirin 81 mg ORAL Tab Take 1 tablet by mouth once daily. Take with food. CRESTOR 40 MG TAB Take one(1) tablet daily. NITROGLYCERIN 0.3 MG SUBLINGUAL TAB Dissolve 0.4 mg under the tongue. Usual dose for angina is 1 tablet every 5 minutes for maximum of 3 doses in 15 minutes. Current Facility-Administered Medications Medication Dose Route Frequency perflutren lipid microspheres 1.3 mL in NaCl (PF) 0.9% 10 mL injection (DEFINITY) INTRAVENOUS DIRECTED PRN sodium chloride 0.9 % (flush) 10 mL (BD POSIFLUSH) 10 mL INTRAVENOUS DIRECTED PRN EXAM: Last 3 Encounter BP Readings: Date: BP: 08/09/2021 138/78 07/29/2021 128/80 07/17/2021 120/72 Wt: 122.5 kg (270 lb) BMI: 41.05 kg/(m^2) LABS: Lab Results Component Value Date HBA1C 7.3 08/17/2021 HBA1C 7.2 05/01/2021 HBA1C 7.2 03/04/2021 HBA1C 6.9 10/23/2020 CMP: Glucose 181 02/19/2021 BUN 28 02/19/2021 Creatinine 1.40 02/19/2021 Sodium 139 02/19/2021 Potassium 4.4 02/19/2021 Chloride 100 02/19/2021 CO2 27 02/19/2021 Protein, Total 7.0 02/19/2021 Albumin 4.1 02/19/2021 Calcium 9.5 02/19/2021 Alkaline Phosphatase 75 02/19/2021 Bilirubin, Total 0.4 02/19/2021 AST 41 02/19/2021 ALT 46 02/19/2021 EGFR: 49 mL/min/1.73m2 Vitamin B12 Date Value Ref Range Status 12/17/2018 384 232 - 1,245 pg/mL Final Lab Results Component Value Date CHOL 95 08/17/2021 CHOL 117 04/23/2020 LDL 26 08/17/2021 LDL 47 04/23/2020 HDL 31 08/17/2021 HDL 32 04/23/2020 TG 189 08/17/2021 TG 192 04/23/2020 The ASCVD Risk score ([place] MABRY Jr., et al., 2013) failed to calculate for the following reasons: The valid total cholesterol range is 130 to 320 mg/dL Albumin/Creat Ratio (mg/g) Date Value 05/01/2021 Not calculated PHARMACOTHERAPY ASSESSMENT/PLAN: 1. Type 2 diabetes mellitus with stage 3a chronic kidney disease, with long-term current use of insulin (HCC) - ICD9: 250.40, 585.3, V58.67, ICD10: E11.22, N18.31, Z79.4 A1c goal < 7%; almost at goal (last A1c 7.3%); SMBG mostly at goal on current regimen; reports s/sx hypoglycemia; denies s/sx hyperglycemia; Today, will decrease basal insulin to prevent risk of nocturnal hypoglycemia. Renal function and LFTs appropriate for continued use DECREASE Insulin glargine (Basaglar) 30 units in the morning and 30 units in evening CONTINUE Dulaglutide (Trulicity) 3 mg once weekly, Insulin lispro (Humalog) 20 units three times daily before meals + Sliding Scale (1 units for every 50 mg/dL above 150 mg/dL) HbA1c: due 11/17/21 - BASAGLAR KWIKPEN U-100 INSULIN 100 UNIT/ML (3 ML) SUBCUTANEOUS Follow up: Patient is scheduled to see PCP on 01/29/22. Patient to follow up with PharmD on 11/08/21. Patient verbalized understanding of instructions. Cholo Thorpe, Abner, BCACP Primary Care Clinical Pharmacist [facility] The majority of the pharmacy visit (> 50%) was spent counseling and/or coordinating care for thepatient. [Telephonic] time was 22 minutes. documented in this encounterLicking [facility] Hospital06-10-2022 Evaluation note* Diagnosis Type 2 diabetes mellitus with stage 3a chronic kidney disease, with long-term current use of insulin (HCC) documented in this encounter [facility]06[facility] History of Present illness Narrative* Yaya Ibarra MD - 09/05/2021 3:22 PM EDT Associated Order(s): Large Joint Arthro/Inj: R knee joint Yaya Ibarra MD Department of Orthopaedics Orthopaedics [address] [place] [address] Dept: [phone] Dept September 05, 2021 CHIEF COMPLAINT: Established Patient and Pain of the Right Knee HPI Patient here today for 4 month post visit OA right knee with injection given. Patient reports good relief from the last injection. Pain started back about 2 weeks ago. He would like another injectiontoday. ASSESSMENT: M17.11 Primary osteoarthritis of right knee (primary encounter diagnosis) PLAN: Patient would like another injection for the knee. Mr. Lovely Devi was advised as to contrast therapies and/or to take analgesics/anti-inflammatories as needed and all contraindications were reviewed. OBJECTIVE: Mr. Lovely Devi is a pleasant 75 year old in no apparent distress. Gen:There were no vitals taken for this visit. nl development, obese, no deformities ENT: Normocephalic, normal hearing, moist mucosa CV: Pulses:DP/PT= 2+ and symmetric, capillary refill < 2 secs, no peripheral edema/varicosities Skin: no rash, bruising or lesions. Good turgor. Psych: cooperative and appropriate, alert and oriented x 3, good mood and affect. Musculoskeletal: Stable exam Large Joint Arthro/Inj: R knee joint Informed Consent Consent Obtained: Verbal Oden Protocol A moment to CARE was completed. SIGN IN Personnel directly involved with the procedure wore the appropriate PPE. Special Equipment: N/A Patient/Surrogate Stated/Verified: Patient name, Date of , Relevant allergies and Intended procedure TIME OUT Intended patient and procedure match the source document(s). Consent documented and matches the intended procedure. Relevant labs, photos, and/or imaging studies have been reviewed. Correct side/site marked and visible. Medications required for procedure verified. No fire risk assessment and interventions applicable. No implant(s) inserted. 09/05/2021 3:46 PM The procedure site was prepped in the usual sterile fashion. Site: R knee joint Medications: 6 mg betamethasone acetate-betamethasone sodium phosphate 6 mg/mL Anesthetics: 4 mL lidocaine (PF) 10 mg/mL (1 %) Outcome: Tolerated well, no immediate complications Post-injection instructions were reviewed with the patient and the patient voiced understanding of these instructions. SIGN OUT No specimen collected. All instruments, equipment, possible retained foreign bodies accounted for. Post-procedure follow-up management communicated and Plan of Care Visit completed when applicable Imaging: Deferred today Supporting Subjective Information Below: Past Surgical History: PAST SURGICAL HISTORY Procedure Laterality Date COLONOSCOPY FLX DX W/COLLJ SPEC WHEN PFRMD 12/21/2017 Dr. Anthony-repeat 3 years-11/2020 COLONOSCOPY W/BIOPSY SINGLE/MULTIPLE 02/21/2009 ESOPHAGOGASTRODUODENOSCOPY TRANSORAL DIAGNOSTIC EGD ESOPHAGOGASTRODUODENOSCOPY TRANSORAL DIAGNOSTIC 02/16/2008 EGD inpt [facility] H-pylori negative ESOPHAGOGASTRODUODENOSCOPY TRANSORAL DIAGNOSTIC 05/24/2015 EGD ESOPHAGOGASTRODUODENOSCOPY TRANSORAL DIAGNOSTIC 12/21/2017 Dr. Anthony-repeat 3 years-11/2020 HEART CATHETERIZATION 12/15/2014 [facility] - see scanned documents HEART SURGERY HX 1 stent LEFT HEART CATH,PERCUTANEOUS Cardiac cath, L heart LEFT HEART CATH,PERCUTANEOUS 06/20/2011 Cardiac cath, L heart PAST SURGICAL HISTORY OF ICD/ pacemaker at [facility] PERC TRANSL COR ANGIO Percutaneous Transluminal Coronary Angio Status REMV CATARACT EXTRACAP,INSERT LENS Bilateral 2020 Right corrected in 2020 and left 2018. Medications: Current Outpatient Medications Medication Sig warfarin (COUMADIN) 3 mg tablet 3 mg every Mon, Wed, Fri; 6 mg all other days famotidine (PEPCID) 20 mg tablet Take 1 tablet by mouth daily at bedtime. rOPINIRole (REQUIP) 0.5 mg tablet Take 2 tablets by mouth daily at bedtime. gabapentin (NEURONTIN) 300 mg capsule Take 3 capsules by mouth three times daily for 30 days. FLUoxetine (PROZAC) 20 mg capsule Take 1 capsule by mouth once daily. insulin glargine (BASAGLAR KWIKPEN U-100 INSULIN) 100 unit/mL (3 mL) Inject 32 Units subcutaneouslyevery morning AND 32 Units daily at bedtime. nortriptyline (PAMELOR) 25 mg capsule Take 1 capsule by mouth daily at bedtime. insulin lispro (HUMALOG KWIKPEN INSULIN) 100 unit/mL Inject 20 Units subcutaneously three times daily before meals. Plus sliding scale as directed ( 1 unit for every 50 mg/dL above 150 mg/dL) albuterol HFA (PROVENTIL HFA) 90 mcg/actuation inhaler Inhale 2 Puffs as instructed every 4 hours while awake. guaiFENesin (MUCINEX) 600 mg 12 hr tablet Take 1 tablet by mouth twice daily. dulaglutide (TRULICITY) 3 mg/0.5 mL pen injector Inject 3 mg subcutaneously one time a week. furosemide (LASIX) 40 mg tablet Take 2 tablets by mouth twice daily. Kiann-6-UGF-EPA-Fish Oil (FISH OIL) 1,000 mg (120 mg-180 mg) cap Take 1 capsule by mouth once daily. lisinopril (ZESTRIL, PRINIVIL) 20 mg tablet Take 1 tablet by mouth once daily. clopidogrel (PLAVIX) 75 mg tablet Take 1 tablet by mouth once daily. latanoprost (XALATAN) 0.005 % ophthalmic solution Use 1 Drop in both eyes three times daily. colestipol (COLESTID) 1 gram tablet Take 1 g by mouth twice daily. carvedilol (COREG) 3.125 mg tablet Take 2 tablets by mouth twice daily. for one week starting on 06/20/16 then will be taking 6.25 x 2 daily . spironolactone (ALDACTONE) 25 mg tablet Take 1 tablet by mouth once daily. isosorbide mononitrate ER (IMDUR) 30 mg 24 hr tablet Take 60 mg by mouth once daily. fenofibrate nanocrystallized (TRICOR) 145 mg tablet Take 1 tablet by mouth once daily. pantoprazole DR (PROTONIX) 40 mg tablet Take 40 mg by mouth once daily. Aspirin 81 mg ORAL Tab Take 1 tablet by mouth once daily. Take with food. CRESTOR 40 MG TAB Take one(1) tablet daily. benzonatate (TESSALON PERLES) 100 mg capsule Take 2 capsules by mouth three times daily as needed. (Patient not taking: Reported on 07/17/2021 ) benzonatate (TESSALON PERLES) 100 mg capsule Take 2 capsules by mouth twice daily as needed for cough. (Patient not taking: Reported on 07/11/2021 ) Insulin Syringe-Needle U-100 (BD ULTRAFINE INSULIN) 1 mL 31 gauge x 5/16 1 Each five times daily. BIPAP Initiate BiPAP @ 24/18 cm of water with humidification. Mask (per patient preference), chin strap, filters, tubing / heated tubing, heated humidity and lifetime supplies. Dx. JESSICA G47.33 327.23 - fax compliance download to [phone] flash glucose sensor (FREESTYLE FILI 14 DAY SENSOR) kit 1 Each four times daily. blood sugar diagnostic ([employer] BLOOD GLUCOSE SYSTEM) test strip Use as instructed to check blood sugar 3 to 4 times daily DM: yes Insulin: yes DX:11.9 Lancets (ONE TOUCH ULTRASOFT LANCETS) lancets Use with [employer] Glucometer as directed NITROGLYCERIN 0.3 MG SUBLINGUAL TAB Dissolve 0.4 mg under the tongue. Usual dose for angina is 1 tablet every 5 minutes for maximum of 3 doses in 15 minutes. Current Facility-Administered Medications Medication Dose Route Frequency perflutren lipid microspheres 1.3 mL in NaCl (PF) 0.9% 10 mL injection (DEFINITY) INTRAVENOUS DIRECTED PRN sodium chloride 0.9 % (flush) 10 mL (BD POSIFLUSH) 10 mL INTRAVENOUS DIRECTED PRN Allergies: Morphine and Rocephin [Ceftriaxone Sodium] ROS: General (negative for fatigue, malaise, weight loss/gain) HEENT (negative for headache, earache, recent vision changes, sinus pain, sore throat) Respiratory (no recent shortness of breath, hemoptysis) CV (negative for chest tightness, palpitations) Musculoskeletal (see HPI) Psych (no depression, anxiety) Yaya Ibarra MD documented in this encounterL[facility]06-[facility]-2022 Miscellaneous Notes* Telephone Encounter - Kerry Escobar [facility] - 08/29/2021 2:38 PM EDT [facility] Lovely Devi is a 75 year old year old male patient being evaluated today for anticoagulation Telemanagement visit. Patient is currently on the following anticoagulant: Warfarin Labs PT INR (no units) Date Value 07/03/2021 2.7 (biotel) 06/19/2021 2.6 (biotel) 06/05/2021 3.3 (biotel) INR Home CoaguChek (no units) Date Value 08/29/2021 4.0 08/14/2021 3.7 07/31/2021 2.8 Indication for Warfarin: Paroxysmal atrial fibrillation (hcc) Anticoagulated on coumadin Anticoagulation Episode Summary Current INR goal: 2.0-3.0 Assessment: INR result of 4.0 is SUPRAtherapeutic due to: No obvious cause Plan: Called and spoke to patient/caregiver Advised patient to hold 1 dose then decrease current regimen Next home INR check scheduled on 09/12/2021 Patient verbalizes understanding of the plan. Kerry Escobar RPh Clinical Pharmacist, Pharmacy Anticoagulation Clinic Pharmacy [facility] Pager: [phone] * Telephone Encounter - Vera Watson RN - 08/29/2021 2:33 PM EDT Patient returned the call and can be reached at [phone]. Meaghan Watson RN Pharmacy Anticoagulation Clinic * Telephone Encounter - Kerry Escobar RPh - 08/29/2021 10:19 AM EDT [facility] Lovely Devi is a 75 year old year old male patient being evaluated today for anticoagulation Telemanagement visit. Patient is currently on the following anticoagulant: Warfarin Labs PT INR (no units) Date Value 07/03/2021 2.7 (biotel) 06/19/2021 2.6 (biotel) 06/05/2021 3.3 (biotel) INR Home CoaguChek (no units) Date Value 08/29/2021 4.0 08/14/2021 3.7 07/31/2021 2.8 Indication for Warfarin: Paroxysmal atrial fibrillation (hcc) Anticoagulated on coumadin Anticoagulation Episode Summary Current INR goal: 2.0-3.0 Assessment: INR result of 4.0 is SUPRAtherapeutic due to: unknown cause - did not speak to patient Plan: Left voice message Advised patient to hold 1 dose and return our call to discuss further, may consider decreasing weekly dose at this time. Will f/u tomorrow. Kerry Escobar RPh Clinical Pharmacist, Pharmacy Anticoagulation Clinic Pharmacy Anticoagulation Clinic Pager: [phone] * Telephone Encounter - Kelsie Cerrato RPh - 08/28/2021 4:33 PM EDT Patient was due to test INR today will continue to monitor for results. Kelsie Cerrato PharmD. documented in this encounterLicking [facility]05-18-2022 Miscellaneous Notes* Telephone Encounter - Kelsie Cerrato RPh - 08/14/2021 10:39 AM EDT [facility] Anticoagulation Episode Summary Anticoagulation Care Providers Provider Role Specialty Phone number Gilbert Keyes III, MD Family Practice Lovely Devi is a 75 year old year old male patient being evaluated today for a Telemanagement visit. Patient is currently on the following anticoagulant(s) Warfarin. Labs PT INR (no units) Date Value 07/03/2021 2.7 (biotel) 06/19/2021 2.6 (biotel) 06/05/2021 3.3 (biotel) INR Home CoaguChek (no units) Date Value 08/14/2021 3.7 07/31/2021 2.8 07/16/2021 2.6 Hemoglobin (g/dL) Date Value 02/19/2021 11.3 Hematocrit (%) Date Value 02/19/2021 37.1 Platelet Count (k/uL) Date Value 02/19/2021 163 Creatinine (mg/dL) Date Value 02/19/2021 1.40 09/21/2020 1.74 09/14/2020 1.82 Bilirubin, Total (mg/dL) Date Value 02/19/2021 0.4 ALT (U/L) Date Value 02/19/2021 46 AST (U/L) Date Value 02/19/2021 41 Estimated Creatinine Clearance: 58 mL/min (A) (based on SCr of 1.4 mg/dL (H)). ALLERGIES Allergen Reactions Morphine Rocephin [Ceftriaxo* Other: See Comments Hot flashes; redness to skin Indication for Warfarin: Paroxysmal atrial fibrillation (hcc) Anticoagulated on coumadin Anticoagulation Episode Summary Current INR goal: 2.0-3.0 Assessment: INR result of 3.7 is SUPRAtherapeutic due to: No obvious cause Pt denies missed or decrease doses, changes in Warfarin tablet color or shape, eating more green vegetables, or consumption of liver or green tea, Ensure, Boost, [place] Instant Breakfast, Mulit-Vitamins, and V-8. Plan: Called and spoke to patient/caregiver Advised patient to hold 1 dose then continue current regimen Next home INR check scheduled on 08/28/2021 Patient verbalizes understanding of the plan. Patient denies need for refills. Kelsie Cerrato RPh Clinical Pharmacist, Pharmacy Anticoagulation Clinic Pharmacy Anticoagulation Clinic Pager: [phone] . documented in this encounterLicking [facility] Hospital05-13-2022 Instructions* Patient Instructions* Ramiro Null APRN.CNP, DNP - 08/09/2021 3:05 PM EDT Consult for Wheelchair mobility assessment: For an appointment call [facility]: [phone]. The special agent group insurance will assist you in selecting the location and specialty service that will best meet your needs. For a list of sites and services: [email or web address] Order Date: July 29, 2021 Ordering Physician: Ramiro Null APRN.CNP, DNP (Signed Electronically in [facility]) documented in this encounterLicking [facility] Hospital05-13-2022 History of Present illness Narrative* Ramiro Null APRN.CNP, DNP - 08/09/2021 2:51 PM EDT Flecking kidney BX Chief Complaint Patient presents with: wheelchair assessment HPI Lovely E Swartzentruber is a 75 year old male who presents here today for follow- up exam. This is anestablished patient of Ramiro Null APRN.PUPPET MAKER, DNP present for appointment today Specialty providers: Cardiology: [facility] - Dr. Perry [facility] Clinical pharmacy: Dr. Thorpe Orthopedics: Dr. Ibarra. Pulmonology: Dr. Ayala - [facility] Mobility: Difficulty moving around. Uses wheelchair frequently.. At risk for falls. Requesting Hoveround/mobility wheelchair evaluation. Has multiple chronic medical conditions that impair mobility Per clinical pharmacy at his last appointment he did the following: DECREASE Basaglar to 32 units twice daily as prescribed Change to Dulaglutide (Trulicity) 3 mg once weekly, Insulin lispro (Humalog) 20 units three times daily before meals + Sliding Scale (1 units for every 50 mg/dL above 150 mg/dL) GERD: Continues to have chronic GERD. On Protonix 40 mg. Zantac 20 mg was added at his last appointment. Symptoms have improved. No or limited breakthrough heartburn and indigestion. No difficulty inswallowing liquids. Occasionally hurts to swallow foods. Past medical history, appointments, medications, allergies reviewed 08/09/2021 Previous Medical History PAST MEDICAL HISTORY Diagnosis Date ASHD (arteriosclerotic heart disease) 02/19/2015 Atrial fibrillation (HCC) 07/03/2011 Automatic implantable cardiac defibrillator in situ Petit's esophagus with esophagitis 03/01/2015 Benign neoplasm of colon Chronic diarrhea 09/16/2011 Coronary atherosclerosis of unspecified type of vessel, makah or graft s/p [place] in 1985 Diverticulosis of colon (without mention of hemorrhage) Duodenitis without mention of hemorrhage Dysphagia 03/01/2015 Facet arthritis of lumbar region 07/14/2017 GERD (gastroesophageal reflux disease) 06/10/12 Heart attack (HCC) Labyrinthitis 02/05/2010 Neurocardiogenic syncope 03/01/2015 Obesity 09/16/2011 JESSICA treated with BiPAP DME [employer] Other and unspecified hyperlipidemia Other specified forms of chronic ischemic heart disease Paroxysmal ventricular tachycardia (HCC) Snoring Stroke (HCC) Tinea of nail 01/13/2011 Type 2 diabetes mellitus with stage 3 chronic kidney disease, with long-term current use of insulin(HCC) 06/15/2017 Unspecified essential hypertension Previous Surgical History PAST SURGICAL HISTORY Procedure Laterality Date COLONOSCOPY FLX DX W/COLLJ SPEC WHEN PFRMD 12/21/2017 Dr. Anthony-repeat 3 years-11/2020 COLONOSCOPY W/BIOPSY SINGLE/MULTIPLE 02/21/2009 ESOPHAGOGASTRODUODENOSCOPY TRANSORAL DIAGNOSTIC EGD ESOPHAGOGASTRODUODENOSCOPY TRANSORAL DIAGNOSTIC 02/16/2008 EGD inpt [facility] H-pylori negative ESOPHAGOGASTRODUODENOSCOPY TRANSORAL DIAGNOSTIC 05/24/2015 EGD ESOPHAGOGASTRODUODENOSCOPY TRANSORAL DIAGNOSTIC 12/21/2017 Dr. Anthony-repeat 3 years-11/2020 HEART CATHETERIZATION 12/15/2014 [facility] - see scanned documents HEART SURGERY HX 1 stent LEFT HEART CATH,PERCUTANEOUS Cardiac cath, L heart LEFT HEART CATH,PERCUTANEOUS 06/20/2011 Cardiac cath, L heart PAST SURGICAL HISTORY OF ICD/ pacemaker at [facility] PERC TRANSL COR ANGIO Percutaneous Transluminal Coronary Angio Status REMV CATARACT EXTRACAP,INSERT LENS Bilateral 2020 Right corrected in 2020 and left 2018. Family History FAMILY HISTORY Problem Relation Age of Onset Stroke Mother Heart Mother Cancer Father prostate Heart Father Breast Cancer Sister Breast Cancer Sister Diabetes Sister Diabetes Brother Diabetes Brother Patient Allergies ALLERGIES Allergen Reactions Morphine Rocephin [Ceftriaxo* Other: See Comments Hot flashes; redness to skin Current Medications Current Outpatient Medications on File Prior to Visit Medication Sig gabapentin (NEURONTIN) 300 mg capsule Take 3 capsules by mouth three times daily for 30 days. warfarin (COUMADIN) 3 mg tablet 3 mg every Mon, Fri; 6 mg all other days insulin glargine (BASAGLAR KWIKPEN U-100 INSULIN) 100 unit/mL (3 mL) Inject 34 Units subcutaneouslyevery 12 hours. dulaglutide (TRULICITY) 1.5 mg/0.5 mL pen injector Inject 1.5 mg subcutaneously one time a week. FLUoxetine (PROZAC) 20 mg capsule Take 1 capsule by mouth once daily. furosemide (LASIX) 40 mg tablet Take 1 tablet by mouth twice daily. insulin lispro (HUMALOG KWIKPEN INSULIN) 100 unit/mL Inject 18 Units subcutaneously three times daily before meals. Plus sliding scale as directed ( 1 unit for every 50 mg/dL above 150 mg/dL) nortriptyline (PAMELOR) 25 mg capsule Take 1 capsule by mouth daily at bedtime. lisinopril (ZESTRIL, PRINIVIL) 20 mg tablet Take 1 tablet by mouth once daily. Insulin Syringe-Needle U-100 (BD ULTRAFINE INSULIN) 1 mL 31 gauge x 5/16 1 Each five times daily. rOPINIRole (REQUIP) 0.5 mg tablet Take 1 tablet by mouth daily at bedtime. latanoprost (XALATAN) 0.005 % ophthalmic solution Use 1 Drop in both eyes three times daily. colestipol (COLESTID) 1 gram tablet Take 1 g by mouth twice daily. carvedilol (COREG) 3.125 mg tablet Take 2 tablets by mouth twice daily. for one week starting on 06/20/16 then will be taking 6.25 x 2 daily . Cholecalciferol, Vitamin D3, 50 mcg (2,000 unit) cap Take 1 capsule by mouth once daily. clopidogrel (PLAVIX) 75 mg tablet Take 1 tablet by mouth once daily. BIPAP Initiate BiPAP @ 24/18 cm of water with humidification. Mask (per patient preference), chin strap, filters, tubing / heated tubing, heated humidity and lifetime supplies. Dx. JESSICA G47.33 327.23 - fax compliance download to [phone] flash glucose sensor (FREESTYLE FILI 14 DAY SENSOR) kit 1 Each four times daily. Back Brace misc 1 Device once daily as needed. size large amiodarone (PACERONE) 200 mg tablet Take 1 tablet by mouth once daily. spironolactone (ALDACTONE) 25 mg tablet Take 1 tablet by mouth once daily. isosorbide mononitrate ER (IMDUR) 30 mg 24 hr tablet Take 60 mg by mouth once daily. blood sugar diagnostic ([employer] Works BLOOD GLUCOSE SYSTEM) test strip Use as [...] (ONE TOUCH ULTRASOFT LANCETS) lancets Use with [employer] Glucometer as directed Aspirin 81 mg ORAL Tab Take 1 tablet by mouth once daily. Take with food. CRESTOR 40 MG TAB Take one(1) tablet daily. NITROGLYCERIN 0.3 MG SUBLINGUAL TAB Dissolve 0.4 mg under the tongue. Usual dose for angina is 1 tablet every 5 minutes for maximum of 3 doses in 15 minutes. No current facility-administered medications on file prior to visit. Social History Social History Tobacco Use Smoking status: Former Smoker Years: 15.00 Types: Cigars Quit date: 08/12/2007 Years since quittin.0 Smokeless tobacco: Never Used Tobacco comment: 2-3 per day Substance Use Topics Alcohol use: No Drug use: No Review of Symptoms GENERAL: No weight loss or fevers. Fatigue Resp/Card: See HPI MUSCULOSKELETAL: generalized joint pain and bilat knee pain SKIN: Negative for lesions, rash EXAM: BP 138/78 Pulse 81 Temp 37.4 C (99.4 F) (Tympanic) Resp 20 Wt 122.5 kg (270 lb) SpO2 95% BMI 41.05 kg/m General Appearance: Chronically ill appearing, alert, in no acute distress, hydrated, well nourished. Morbidly obese Skin: Skin color normal. Head: Normocephalic, no masses. Eyes: Anicteric sclera. No redness or drainage. Psych: Attitude - cooperative, easily engaged in conversation Appearance - normal, hygiene and grooming appropriate Affect - euthymic, normal mood Mental status: Alert, attentive. Speech is clear and fluent with good repetition, comprehension Coordination: There are no abnormal or extraneous movements. Gait/Stance: Posture is normal. Gait is unsteady with use of cane for short distance and using wheelchair for mobility. 1. Mobility: Has difficulty transferring from sitting to bathroom, toilet and for bathing. Has lower and upper extremity weakness. Inability to prepare meals and cook. Difficulty with grooming and dressing. Lives with spouse and who helps with her daily activities and physical care. 2. Walker or cane do not meet the patient's mobility needs due to lower extremity weakness and decreased range of motion. Strength in left side is only 3 out of 5. Has limited to no use of the entireleft leg. 3. Unable to use manual wheelchair: Upper extremity strength is 4-5. Has decreased core measures abstractor strength at3 out of 5. Has a history of multiple falls and pain. 4. Scooter: Patient cannot use POV scooter due to lack of postural stability due to upper extremityand lower extremity/core muscle weakness. 5. Prescribed equipment will be used in the home 6. Patient can safely operate the mobility device both mentally and physically 7. Patient is willing and motivated to use the power mobility device in the home Health Maintenance List DILATED RETINAL EXAM due on 08/10/2020 SHINGRIX VACCINE(1 of 2) due on 10/26/2020 DIABETIC FOOT EXAM due on 11/26/2020 HBA1C due on 01/23/2021 URINE ALBUMIN:CREATININE RATIO due on 04/23/2021 LDL CHOLESTEROL due on 04/23/2021 DEPRESSION SCREENING due on 06/07/2021 HEMOGLOBIN/HEMATOCRIT due on 09/14/2021 SERUM CREATININE due on 09/21/2021 ANNUAL PCP TEAM CHRONIC DISEASE VISIT due on 09/25/2021 BP CONTROLLED (<130/80) due on 09/25/2021 ADVANCE DIRECTIVE DISCUSSION due on 10/26/2024 DTAP,TDAP,TD(3 - Td or Tdap) due on 10/17/2027 COLORECTAL CANCER SCREENING due on 01/07/2028 ABDOMINAL AORTIC ANEURYSM SCREENING Completed INFLUENZA Completed HEPATITIS C SCREENING Completed PNEUMOVAX AGE 65 AND OVER WITH 5YR LOOKBACK Completed COVID-19 VACCINE Completed MENINGOCOCCAL CONJUGATE Aged Out Data reviewed Last 5 Encounter BP Readings: Date: BP: 08/09/2021 138/78 07/29/2021 128/80 07/17/2021 120/72 07/15/2021 146/86 07/11/2021 132/80 BMI Readings from Last 5 Encounters: 08/09/21 : 41.05 kg/m 07/29/21 : 41.66 kg/m 07/17/21 : 41.81 kg/m 07/15/21 : 41.90 kg/m 07/11/21 : 42.73 kg/m Last 5 Encounter Wt Readings: Date: Wt: 08/09/2021 122.5 kg (270 lb) 07/29/2021 124.3 kg (274 lb) 07/17/2021 124.7 kg (275 lb) 07/15/2021 125 kg (275 lb 9.6 oz) 07/11/2021 127.5 kg (281 lb) Medication and allergy list reviewed, reconciled and updated 08/09/2021 ASSESSMENT/PLAN: 1. Age-related physical debility - ICD9: 797, ICD10: R54 (primary diagnosis) MDM: Impaired Mobility: Has difficulty transferring from sitting to bathroom, toilet and for bathing. Has upper and lower extremity weakness. Inability to prepare meals and cook. Difficulty with grooming and dressing. Needs mobility scooter and evaluation/assessment completed. Provided [facility] information and appointment for scheduling - CONSULT TO PHYSICAL THERAPY 2. Mobility impaired - ICD9: 799.89, ICD10: Z74.09 Plan is #1 - CONSULT TO PHYSICAL THERAPY 3. At moderate risk for fall - ICD9: V15.88, ICD10: Z91.81 Plan is #1 - CONSULT TO PHYSICAL THERAPY 4. Acute on chronic HFrEF (heart failure with reduced ejection fraction) ([facility]) - ICD9: 428.23, ICD10: I50.23 Clinically stable. Continue with current medications Continue follow-up with cardiology 5. Class 3 severe obesity with serious comorbidity and body mass index (BMI) of 40.0 to 44.9 in adult, unspecified obesity type (HCC) - ICD9: 278.01, V85.41, ICD10: E66.01, Z68.41 Chronic and stable weight Recommend regular physical activity, nutrition and healthy eating habits. Consume a variety of foods every day focusing on fruits, vegetables and lean meats). Eat foods low in fat, saturated fat and cholesterol. Eat a limited amount of salt and sodium. Drink adequate amounts of water and limit sugary drinks. Exercise portion control in meal selection. Establish a mindset of a wellness approach to health. 6. Type 2 diabetes mellitus with diabetic neuropathy, with long-term current use of insulin (HCC) -ICD9: 250.60, 357.2, V58.67, ICD10: E11.40, Z79.4 Clinically stable. Continue with current medications 7. Type 2 diabetes mellitus with peripheral neuropathy (HCC) - ICD9: 250.60, 357.2, ICD10: E11.42 Clinically stable. Continue with current medications 8. GERD without esophagitis - ICD9: 530.81, ICD10: K21.9 Clinically stable. Symptoms improved. Continue on PPI in the morning time and Pepcid in the evening - FAMOTIDINE 20 MG TABLET This note was completed with [employer] dictation software. Note was reviewed for accuracy. There may be minor misspellings or grammar miscues with Dragon 360 Dictation. I spent a total of 23 minutes on the date of the service which included preparing to see the patient, [id number] patient care, completing clinical documentation, performing a medically appropriate examination, counseling and educating the patient/family/caregiver and ordering medications, tests, or procedures. [facility] [address] [id number] This note was copied from previous note and exam dated 07/29/21. Author is Ramiro Null APRN.Brent FRIAS reviewed and changes have been made or updates noted in the copy & paste portion of an encounter. documented in this encounterLicking [facility] Hospital05-13-2022 Nurse Note* May Martinez Ma - 08/09/2021 2:16 PM EDT Falls Risk Intake: 1. Patient age 65 or over, unsteady, or was advised to use special equipment to aid ambulation (i.e., cane or walker)? Yes 2. Has the patient had two falls in the past year, or one with injury? Yes 3. Does the patient need to use their hands when pushing up from chair, or hold onto furniture whenambulating at home? Yes 4. Is the patient worried about falling? Yes Please inform patient that answering Yes to one or more of the questions above can increase theirrisk of falling Patient is at greater risk for falls. Falls Instruction: Teaching document below - reviewed and given to patient [facility] - Preventing Falls and Maintaining Balance documented in this encounterLicking [facility] Hospital05-12-2022 Miscellaneous Notes* Telephone Encounter - Ariana Mccormick Cma - 08/08/2021 2:40 PM EDT Patient scheduled for wheelchair assessment 08/09/21 Ariana Mccormick Cma * Telephone Encounter - Ramiro Null APRN.FAIZA FRIAS - 08/07/2021 1:15 PM EDT Rx printed. Please inform patient to cook pickled meat Rx. Orders signed Orders Placed This Encounter T[employer]Y FRAME MOTOR/PWR WHEELCHR Order Comments: 75-year-old male who has chronic heart failure, chronic bilateral knee pain, and mobility and classIII severe obesity. Needs power/electric mobile wheelchair. Please authorize. Ramiro Null DNP, CNP [facility] Ramiro Null APRN.FAIZA FRIAS * Telephone Encounter - Eleanor Nobles RN - 08/07/2021 12:18 PM EDT Patient calls to let provider know that he has contacted Medicare and they told him they will coverthe Hoveround w/c at any local DME company. Patient is asking for a printed prescription and will cook pickled meat once completed. Patient requesting a call back at [phone] when prescription is ready. Eleanor Nobles RN * Telephone Encounter - Cindi Eastman LPN - 08/07/2021 11:47 AM EDT 1. Pt calling and states [facility] called him today and cancelled [facility] and told pt they do not do this. Not certain where to have this done. 2. He tried calling 2 numbers that were given to him at his last apt to get an and the 1st number he called no one answered and [facility] [place] [facility] $7.95 a day to rent the houverround wheel chair. Pt states can not afford this. 3. His is going to call [employer] to see if he can order thru them and will call the office back. If not pt aware he needs to let us know what DME company his insurance will cover. Cindi Eastman LPN documented in this encounterLicking Memorial Hospital05-12-2022 Miscellaneous Notes* Telephone Encounter - Ramiro Null APRN.CNP, DNP - 08/08/2021 7:03 AM EDT See Mychart response. * Telephone Encounter - Ankita Virk Ma - 08/07/2021 5:06 PM EDT rx pended, please advise Ankita Virk Ma documented in this encounterLicking [facility] Hospital05-04-2022 Miscellaneous Notes* Telephone Encounter - Candy Dominguez RPh - 07/31/2021 10:52 AM EDT [facility] message sent with INR result, dosing and information on when to test next. Candy Dominguez PharmD * Telephone Encounter - Yrn Armas RPh - 07/30/2021 9:18 AM EDT Patient due to test INR today. Will continue to monitor for results. Yrn Armas RPh documented in this encounterLicking [facility] Hospital05-02-2022 Instructions* Patient Instructions* Ramiro Null APRN.CNP, DNP - 07/29/2021 1:57 PM EDT Follow up with Ramiro Null APRN.CNP, DNP in 6 months Consultation for Hoveround evaluation with physical therapy. Please assist with scheduling Check fasting lab work in 2 weeks Trial of Requip 0.5mg take 2 tablets at bedtime Trial of Pepcid for reflux at bedtime Return to the clinic or seek care at [facility] for any worsening signs or symptoms. - Continue current medications - Blood glucose monitoring daily - Recommend yearly eye exam with Ophthalmology for eval/management of diabetic eye changes and yearly diabetic foot exams with PCP - Encouraged regular aerobic exercise and weight loss - Adhere to a low-cholesterol, low-fat, and low carb diet. Please ensure that they are eating lots of fruits and vegetables, eat lean cuts of meat, and limit surgry drinks. Perform regular physical activity and limit fast food. - BP goal of <130/80 - LDL goal of <100 - A1C Goal <7%. - Recheck labs in 2 weeks to monitor A1C, blood sugar and kidney function Healthy Habits: Recommend regular physical activity, nutrition and healthy eating habits. Consume a variety of foods every day focusing on fruits, vegetables and lean meats). Eat foods low [...] seeing you again and maintaining your health. Ramiro Null APRN.FAIZA FRIAS documented in this encounterLicking [facility] Hospital05-02-2022 History of Present illness Narrative* Ramiro Null APRN.FAIZA FRIAS - 07/29/2021 1:13 PM EDT Flecking kidney BX Chief Complaint No chief complaint on file. ROBYN Devi is a 75 year old male who presents here today for follow- up exam. This is anestablished patient of Ramiro Null APRN.FAIZA FRIAS present for appointment today Specialty providers: Cardiology: Oziel espinoza - Dr. Perry [facility] Clinical pharmacy: Dr. Thorpe Orthopedics: Dr. Ibarra. Pulmonology: Dr. Ayala - [facility] Cardiac: Chronic mild shortness of breath. Followed by Oziel espinoza and by Dr. Perry. History of coronary artery disease with non-ST AK, ischemic cardiomyopathy with ICD implant and recent generator in December 2018. In 2018 echocardiogram showed ejection fraction of 45%. He had repeat echo completed in October 2019 which showed ejection fraction of 47%. Amiodarone was discontinued at his previous appointment. Lasix was increased to 80 mg. Recently seen by [facility]. CBC and CMP completed. No adjustments to his medications at that time. Diabetes: History of type 2 diabetes with morbid obesity. He is followed by Dr. Thorpe who is our clinical pharmacist. Has follow-up scheduled with her in 2 weeks. A1c goal < 7%; near goal (last A1c 7.2%); SMBG mostly at goal on current regimen; denies s/sx hyperglycemia; Per clinical pharmacy at his last appointment he did the following: DECREASE Basaglar to 32 units twice daily as prescribed Change to Dulaglutide (Trulicity) 3 mg once weekly, Insulin lispro (Humalog) 20 units three times daily before meals + Sliding Scale (1 units for every 50 mg/dL above 150 mg/dL) GERD: Continues to have chronic GERD. On Protonix 40 mg. Has breakthrough heartburn and indigestionand occasional pain with swallowing. No difficulty in swallowing liquids. Occasionally hurts to swallow foods. Insomnia/restless leg: States legs have been more jittery. Difficulty with falling asleep. Takes several hours to fall asleep. Once asleep stays asleep. 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 No use of [id number] sleep aids. No recent use of prescription sleep aids. Mobility: Difficulty moving around. Uses cane. At risk for falls. Requesting Hoveround evaluation Past medical history, appointments, medications, allergies reviewed 07/29/2021 Previous Medical History PAST MEDICAL HISTORY Diagnosis Date ASHD (arteriosclerotic heart disease) 02/19/2015 Atrial fibrillation (HCC) 07/03/2011 Automatic implantable cardiac defibrillator in situ Petit's esophagus with esophagitis 03/01/2015 Benign neoplasm of colon Chronic diarrhea 09/16/2011 Coronary atherosclerosis of unspecified type of vessel, makah or graft s/p AK in 1985 Diverticulosis of colon (without mention of hemorrhage) Duodenitis without mention of hemorrhage Dysphagia 03/01/2015 Facet arthritis of lumbar region 07/14/2017 GERD (gastroesophageal reflux disease) 06/10/12 Heart attack (HCC) Labyrinthitis 02/05/2010 Neurocardiogenic syncope 03/01/2015 Obesity 09/16/2011 JESSICA treated with BiPAP DME [facility] Other and unspecified hyperlipidemia Other specified forms of chronic ischemic heart disease Paroxysmal ventricular tachycardia (HCC) Snoring Stroke (HCC) Tinea of nail 01/13/2011 Type 2 diabetes mellitus with stage 3 chronic kidney disease, with long-term current use of insulin(HCC) 06/15/2017 Unspecified essential hypertension Previous Surgical History PAST SURGICAL HISTORY Procedure Laterality Date COLONOSCOPY FLX DX W/COLLJ SPEC WHEN PFRMD 12/21/2017 Dr. Anthony-repeat 3 years-11/2020 COLONOSCOPY W/BIOPSY SINGLE/MULTIPLE 02/21/2009 ESOPHAGOGASTRODUODENOSCOPY TRANSORAL DIAGNOSTIC EGD ESOPHAGOGASTRODUODENOSCOPY TRANSORAL DIAGNOSTIC 02/16/2008 EGD inpt [facility] H-pylori negative ESOPHAGOGASTRODUODENOSCOPY TRANSORAL DIAGNOSTIC 05/24/2015 EGD ESOPHAGOGASTRODUODENOSCOPY TRANSORAL DIAGNOSTIC 12/21/2017 Dr. Anthony-repeat 3 years-11/2020 HEART CATHETERIZATION 12/15/2014 [facility] - see scanned documents HEART SURGERY HX 1 stent LEFT HEART CATH,PERCUTANEOUS Cardiac cath, L heart LEFT HEART CATH,PERCUTANEOUS 06/20/2011 Cardiac cath, L heart PAST SURGICAL HISTORY OF ICD/ pacemaker at [facility] PERC TRANSL COR ANGIO Percutaneous Transluminal Coronary Angio Status REMV CATARACT EXTRACAP,INSERT LENS Bilateral 2020 Right corrected in 2020 and left 2018. Family History FAMILY HISTORY Problem Relation Age of Onset Stroke Mother Heart Mother Cancer Father prostate Heart Father Breast Cancer Sister Breast Cancer Sister Diabetes Sister Diabetes Brother Diabetes Brother Patient Allergies ALLERGIES Allergen Reactions Morphine Rocephin [Ceftriaxo* Other: See Comments Hot flashes; redness to skin Current Medications Current Outpatient Medications on File Prior to Visit Medication Sig gabapentin (NEURONTIN) 300 mg capsule Take 3 capsules by mouth three times daily for 30 days. warfarin (COUMADIN) 3 mg tablet 3 mg every Mon, Fri; 6 mg all other days insulin glargine (BASAGLAR KWIKPEN U-100 INSULIN) 100 unit/mL (3 mL) Inject 34 Units subcutaneouslyevery 12 hours. dulaglutide (TRULICITY) 1.5 mg/0.5 mL pen injector Inject 1.5 mg subcutaneously one time a week. FLUoxetine (PROZAC) 20 mg capsule Take 1 capsule by mouth once daily. furosemide (LASIX) 40 mg tablet Take 1 tablet by mouth twice daily. insulin lispro (HUMALOG KWIKPEN INSULIN) 100 unit/mL Inject 18 Units subcutaneously three times daily before meals. Plus sliding scale as directed ( 1 unit for every 50 mg/dL above 150 mg/dL) nortriptyline (PAMELOR) 25 mg capsule Take 1 capsule by mouth daily at bedtime. lisinopril (ZESTRIL, PRINIVIL) 20 mg tablet Take 1 tablet by mouth once daily. Insulin Syringe-Needle U-100 (BD ULTRAFINE INSULIN) 1 mL 31 gauge x 5/16 1 Each five times daily. rOPINIRole (REQUIP) 0.5 mg tablet Take 1 tablet by mouth daily at bedtime. latanoprost (XALATAN) 0.005 % ophthalmic solution Use 1 Drop in both eyes three times daily. colestipol (COLESTID) 1 gram tablet Take 1 g by mouth twice daily. carvedilol (COREG) 3.125 mg tablet Take 2 tablets by mouth twice daily. for one week starting on 06/20/16 then will be taking 6.25 x 2 daily . Cholecalciferol, Vitamin D3, 50 mcg (2,000 unit) cap Take 1 capsule by mouth once daily. clopidogrel (PLAVIX) 75 mg tablet Take 1 tablet by mouth once daily. BIPAP Initiate BiPAP @ 24/18 cm of water with humidification. Mask (per patient preference), chin strap, filters, tubing / heated tubing, heated humidity and lifetime supplies. Dx. JESSICA G47.33 327.23 - fax compliance download to [phone] flash glucose sensor (FREESTYLE FILI 14 DAY SENSOR) kit 1 Each four times daily. Back Brace misc 1 Device once daily as needed. size large amiodarone (PACERONE) 200 mg tablet Take 1 tablet by mouth once daily. spironolactone (ALDACTONE) 25 mg tablet Take 1 tablet by mouth once daily. isosorbide mononitrate ER (IMDUR) 30 mg 24 hr tablet Take 60 mg by mouth once daily. blood sugar diagnostic (Make Works BLOOD GLUCOSE SYSTEM) test strip Use as [...] (ONE TOUCH ULTRASOFT LANCETS) lancets Use with CeDe Groupuch Glucometer as directed Aspirin 81 mg ORAL Tab Take 1 tablet by mouth once daily. Take with food. CRESTOR 40 MG TAB Take one(1) tablet daily. NITROGLYCERIN 0.3 MG SUBLINGUAL TAB Dissolve 0.4 mg under the tongue. Usual dose for angina is 1 tablet every 5 minutes for maximum of 3 doses in 15 minutes. No current facility-administered medications on file prior to visit. Social History Social History Tobacco Use Smoking status: Former Smoker Years: 15.00 Types: Cigars Quit date: 08/12/2007 Years since quittin.9 Smokeless tobacco: Never Used Tobacco comment: 2-3 per day Substance Use Topics Alcohol use: No Drug use: No Review of Symptoms GENERAL: No weight loss or fevers. Fatigue Resp/Card: See HPI MUSCULOSKELETAL: generalized joint pain and bilat knee pain SKIN: Negative for lesions, rash EXAM: There were no vitals taken for this visit. General Appearance: Chronically ill appearing, alert, in no acute distress, hydrated, well nourished. Morbidly obese Skin: Skin color normal. Head: Normocephalic, no masses. Eyes: Anicteric sclera. No redness or drainage. Neck: Supple, no mass or lumps. Lymph Nodes: No cervical, supraclavicular, or submandibular lymphadenopathy Lungs: Lungs clear to auscultation. No wheezing, rhonchi, rales. Heart: RRR without murmur, gallop, or rubs. No ectopy. GI: Soft and round. Extremities: No deformities, edema, skin discoloration. no cyanosis. No chest wall tenderness. Pulses: 2+ at radial. Psych: Attitude - cooperative, easily engaged in conversation Appearance - normal, hygiene and grooming appropriate Affect - euthymic, normal mood Mental status: Alert, attentive. Speech is clear and fluent with good repetition, comprehension Coordination: There are no abnormal or extraneous movements. Gait/Stance: Posture is normal. Gait is unsteady with use of cane for short distance and using wheelchair. Health Maintenance List DILATED RETINAL EXAM due on 08/10/2020 SHINGRIX VACCINE(1 of 2) due on 10/26/2020 DIABETIC FOOT EXAM due on 11/26/2020 HBA1C due on 01/23/2021 URINE ALBUMIN:CREATININE RATIO due on 04/23/2021 LDL CHOLESTEROL due on 04/23/2021 DEPRESSION SCREENING due on 06/07/2021 HEMOGLOBIN/HEMATOCRIT due on 09/14/2021 SERUM CREATININE due on 09/21/2021 ANNUAL PCP TEAM CHRONIC DISEASE VISIT due on 09/25/2021 BP CONTROLLED (<130/80) due on 09/25/2021 ADVANCE DIRECTIVE DISCUSSION due on 10/26/2024 DTAP,TDAP,TD(3 - Td or Tdap) due on 10/17/2027 COLORECTAL CANCER SCREENING due on 01/07/2028 ABDOMINAL AORTIC ANEURYSM SCREENING Completed INFLUENZA Completed HEPATITIS C SCREENING Completed PNEUMOVAX AGE 65 AND OVER WITH 5YR LOOKBACK Completed COVID-19 VACCINE Completed MENINGOCOCCAL CONJUGATE Aged Out Data reviewed Last A1C: 7.2% Last 5 Encounter BP Readings: Date: BP: 07/29/2021 128/80 07/17/2021 120/72 07/15/2021 146/86 07/11/2021 132/80 05/01/2021 130/80 BMI Readings from Last 5 Encounters: 07/29/21 : 41.66 kg/m 07/17/21 : 41.81 kg/m 07/15/21 : 41.90 kg/m 07/11/21 : 42.73 kg/m 05/01/21 : 41.51 kg/m Last 5 Encounter Wt Readings: Date: Wt: 07/29/2021 124.3 kg (274 lb) 07/17/2021 124.7 kg (275 lb) 07/15/2021 125 kg (275 lb 9.6 oz) 07/11/2021 127.5 kg (281 lb) 05/01/2021 123.8 kg (273 lb) Medication and allergy list reviewed, reconciled and updated 07/29/2021 ASSESSMENT/PLAN: 1. Age-related physical debility - ICD9: 797, ICD10: R54 (primary diagnosis) Consult to physical therapy for Hoveround evaluation. Continue use cane. Avoid trip hazards. Use assistive devices at home. Currently has a ramp to enter his home. - CONSULT TO PHYSICAL THERAPY 2. At moderate risk for fall - ICD9: V15.88, ICD10: Z91.81 Consult to physical therapy for Hoveround evaluation. Continue use cane. Avoid trip hazards. Use assistive devices at home. Currently has a ramp to enter his home. - CONSULT TO PHYSICAL THERAPY 3. GERD without esophagitis - ICD9: 530.81, ICD10: K21.9 Not well controlled - Discussed lifestyle modifications including losing weight, limiting caffeine, no meals three hours before sleep and head of bed elevation - Begin treatment with Pepcid QHS - Follow up in 4weeks - FAMOTIDINE 20 MG TABLET 4. Type 2 diabetes mellitus with diabetic neuropathy, with long-term current use of insulin (HCC) -ICD9: 250.60, 357.2, V58.67, ICD10: E11.40, Z79.4 Ggood control and stable - Continue current medications - Blood glucose monitoring on a 2-3 times a day schedule - Encouraged regular aerobic exercise and weight loss - Adhere to a low-cholesterol, low-fat diet. Please ensure that they are eating lots of fruits and vegetables, eat lean cuts of meat, and limit surgry drinks. Perform regular physical activity and limit fast food. - BP goal of <130/80 - LDL goal of <100 - A1C Goal <7%. - Recheck A1c - LIPID PANEL BASIC - HGB A1C 5. Acute on chronic HFrEF (heart failure with reduced ejection fraction) ([facility]) - ICD9: 428.23, ICD10: I50.23 Clinically stable. Continue follow-up with cardiology and pulmonology 6. Paroxysmal atrial fibrillation (HCC) - ICD9: 427.31, ICD10: I48.0 Clinically stable. Continue follow-up with cardiology and pulmonology 7. Chronic pain of both knees - ICD9: 719.46, 338.29, ICD10: M25.561, M25.562, G89.29 Clinically stable. Continue follow-up with orthopedics 8. Restless leg syndrome - ICD9: 333.94, ICD10: G25.81 Restless leg versus insomnia. Likely worsening restless leg. Increase Requip to 1 mg at bedtime. Follow-up in 2 to 3 weeks via [employer] message Ramiro Null APRN.PUPPET MAKER, DNP This note was completed with [employer] dictation software. Note was reviewed for accuracy. There may be minor misspellings or grammar miscues with [employer] Dictation. I spent a total of 45 minutes on the date of the service which included preparing to see the patient, [id number] patient care, completing clinical documentation, performing a medically appropriate examination, counseling and educating the patient/family/caregiver and ordering medications, tests, or procedures. [place] [phone] This note was copied from previous note and exam dated 05/21/21. Author is Ramiro Null APRN.FAIZA FRIAS note reviewed and changes have been made or updates noted in the copy & paste portion of an encounter. documented in this encounterLicking [facility] Hospital04-28-2022 History of Present illness Narrative* Donna Jose LPN - 07/25/2021 1:12 PM EDT Patient presents for COVID booster. Denies any problems at this time. Tolerated injection well. Donna Jose LPN documented in this encounterLicking [facility] Hospital04-21-2022 Miscellaneous Notes* Telephone Encounter - Ramiro Null APRN.CNP, DNP - 07/18/2021 8:31 AM EDT The following approved medication requests have been transmitted electronically. Pending Prescriptions Disp Refills GABAPENTIN 300 MG CAPSULE 270 capsule 2 Sig: Take 3 capsules by mouth three times daily for 30 days. ZBIGNIEW: No Ramiro Null APRN.FAIZA FRIAS * Telephone Encounter - Cindi Eastman LPN - 07/18/2021 8:21 AM EDT Patient has been identified by name and date of : Yes Patient phones for refill(s): Pending Prescriptions Disp Refills GABAPENTIN 300 MG CAPSULE 270 capsule 2 Sig: Take 3 capsules by mouth three times daily for 30 days. ZBIGNIEW: No Date of last office visit in primary care: 07/17/21 next apt 07/29/21 Last 2 Encounter Wt Readings: Date: Wt: 07/17/2021 124.7 kg (275 lb) 07/15/2021 125 kg (275 lb 9.6 oz) Previous labs/tests for medication: Not applicable Please advise. Thank you. Cindi Eastman LPN documented in this encounterLicking [facility] Hospital04-20-2022 Instructions* Patient Instructions* Shereen Holt APRN.CNP - 07/17/2021 11:12 AM EDT 1.) Continue to take Clindamycin until gone. 2.) Make appointment with orthopedics if hand pain does not improve. 3.) Red flag symptoms follow up. May apply ice to the area and take tylenol as needed for pain. If pain does not improve you may come in and get xray. documented in this encounterLicking [facility] Hospital04-20-2022 History of Present illness Narrative* Shereen Holt APRN.CNP - 07/17/2021 11:00 AM EDT This is a 75 year old male who presents today with: Patient presents with: Acute Visit: left hand follow up HISTORY OF PRESENT ILLNESS: Lovely Devi is a 75 year old male. Patient presents with: Acute Visit: left hand follow up Patient of Emery Null CNP, here in the office for follow-up for cellulitis of the left hand. I saw this patient on 07/10/21 and started the patient on clindamycin for cellulitis. Refers that hand is hot kettle tender. Redness has improved but difficulty with core measures abstractor strenghth due to infection. No fever or chills. PAST MEDICAL HISTORY: PAST MEDICAL HISTORY Diagnosis Date ASHD (arteriosclerotic heart disease) 02/19/2015 Atrial fibrillation (HCC) 07/03/2011 Automatic implantable cardiac defibrillator in situ Petit's esophagus with esophagitis 03/01/2015 Benign neoplasm of colon Chronic diarrhea 09/16/2011 Coronary atherosclerosis of unspecified type of vessel, makah or graft s/p AK in 1985 Diverticulosis of colon (without mention of hemorrhage) Duodenitis without mention of hemorrhage Dysphagia 03/01/2015 Facet arthritis of lumbar region 07/14/2017 GERD (gastroesophageal reflux disease) 06/10/12 Heart attack (HCC) Labyrinthitis 02/05/2010 Neurocardiogenic syncope 03/01/2015 Obesity 09/16/2011 JESSICA treated with BiPAP DME [facility] Other and unspecified hyperlipidemia Other specified forms of chronic ischemic heart disease Paroxysmal ventricular tachycardia (HCC) Snoring Stroke (HCC) Tinea of nail 01/13/2011 Type 2 diabetes mellitus with stage 3 chronic kidney disease, with long-term current use of insulin(HCC) 06/15/2017 Unspecified essential hypertension PAST SURGICAL HISTORY Procedure Laterality Date COLONOSCOPY FLX DX W/COLLJ SPEC WHEN PFRMD 12/21/2017 Dr. Anthony-repeat 3 years-11/2020 COLONOSCOPY W/BIOPSY SINGLE/MULTIPLE 02/21/2009 ESOPHAGOGASTRODUODENOSCOPY TRANSORAL DIAGNOSTIC EGD ESOPHAGOGASTRODUODENOSCOPY [facility] ESOPHAGOGASTRODUODENOSCOPY TRANSORAL DIAGNOSTIC 05/24/2015 EGD ESOPHAGOGASTRODUODENOSCOPY TRANSORAL DIAGNOSTIC 12/21/2017 Dr. Anthony-repeat 3 years-11/2020 HEART CATHETERIZATION 12/15/2014 [facility] - see scanned documents HEART SURGERY HX 1 stent LEFT HEART CATH,PERCUTANEOUS Cardiac cath, L heart LEFT HEART CATH,PERCUTANEOUS 06/20/2011 Cardiac cath, L heart PAST SURGICAL HISTORY OF ICD/ pacemaker at [facility] PERC TRANSL COR ANGIO Percutaneous Transluminal Coronary Angio Status REMV CATARACT EXTRACAP,INSERT LENS Bilateral 2020 Right corrected in 2020 and left 2018. ALLERGIES Morphine and Rocephin [Ceftriaxone Sodium] MEDICATIONS Current Outpatient Medications Medication Sig predniSONE (DELTASONE) 20 mg tablet Take 2 tablets by mouth once daily for 5 days. guaiFENesin (MUCINEX) 600 mg 12 hr tablet Take 2 tablets by mouth twice daily for 7 days. benzonatate (TESSALON PERLES) 100 mg capsule Take 2 capsules by mouth three times daily as needed. clindamycin (CLEOCIN) 300 mg capsule Take 1 capsule by mouth three times daily for 10 days. tiZANidine (ZANAFLEX) 4 mg tablet Take 1 tablet by mouth every 8 hours as needed (muscle spasms) for up to 10 days. FLUoxetine (PROZAC) 20 mg capsule Take 1 capsule by mouth once daily. insulin glargine (BASAGLAR KWIKPEN U-100 INSULIN) 100 unit/mL (3 mL) Inject 32 Units subcutaneouslyevery morning AND 32 Units daily at bedtime. nortriptyline (PAMELOR) 25 mg capsule Take 1 capsule by mouth daily at bedtime. insulin lispro (HUMALOG KWIKPEN INSULIN) 100 unit/mL Inject 20 Units subcutaneously three times daily before meals. Plus sliding scale as directed ( 1 unit for every 50 mg/dL above 150 mg/dL) albuterol HFA (PROVENTIL HFA) 90 mcg/actuation inhaler Inhale 2 Puffs as instructed every 4 hours while awake. guaiFENesin (MUCINEX) 600 mg 12 hr tablet Take 1 tablet by mouth twice daily. (Patient not taking: Reported on 07/11/2021 ) benzonatate (TESSALON PERLES) 100 mg capsule Take 2 capsules by mouth twice daily as needed for cough. (Patient not taking: Reported on 07/11/2021 ) gabapentin (NEURONTIN) 300 mg capsule Take 3 capsules by mouth three times daily for 30 days. dulaglutide (TRULICITY) 3 mg/0.5 mL pen injector Inject 3 mg subcutaneously one time a week. furosemide (LASIX) 40 mg tablet Take 2 tablets by mouth twice daily. Zvaxj-0-MND-EPA-Fish Oil (FISH OIL) 1,000 mg (120 mg-180 mg) cap Take 1 capsule by mouth once daily. rOPINIRole (REQUIP) 0.5 mg tablet Take 1 tablet by mouth daily at bedtime. lisinopril (ZESTRIL, PRINIVIL) 20 mg tablet Take 1 tablet by mouth once daily. clopidogrel (PLAVIX) 75 mg tablet Take 1 tablet by mouth once daily. warfarin (COUMADIN) 3 mg tablet 3 mg every Mon, Fri; 6 mg all other days Insulin Syringe-Needle U-100 (BD ULTRAFINE INSULIN) 1 mL 31 gauge x /16 1 Each five times daily. latanoprost (XALATAN) 0.005 % ophthalmic solution Use 1 Drop in both eyes three times daily. colestipol (COLESTID) 1 gram tablet Take 1 g by mouth twice daily. carvedilol (COREG) 3.125 mg tablet Take 2 tablets by mouth twice daily. for one week starting on 06/20/16 then will be taking 6.25 x 2 daily . BIPAP Initiate BiPAP @ 24/18 cm of water with humidification. Mask (per patient preference), chin strap, filters, tubing / heated tubing, heated humidity and lifetime supplies. Dx. JESSICA G47.33 327.23 - fax compliance download to [phone] flash glucose sensor (FREESTYLE FILI 14 DAY SENSOR) kit 1 Each four times daily. spironolactone (ALDACTONE) 25 mg tablet Take 1 tablet by mouth once daily. isosorbide mononitrate ER (IMDUR) 30 mg 24 hr tablet Take 60 mg by mouth once daily. blood sugar diagnostic ([employer] BLOOD GLUCOSE SYSTEM) test strip Use as instructed to check blood sugar 3 to 4 times daily DM: yes Insulin: yes DX:11.9 fenofibrate nanocrystallized (TRICOR) 145 mg tablet Take 1 tablet by mouth once daily. pantoprazole DR (PROTONIX) 40 mg tablet Take 40 mg by mouth once daily. Lancets (ONE TOUCH ULTRASOFT LANCETS) lancets Use with CeDe Groupuch Glucometer as directed Aspirin 81 mg ORAL Tab Take 1 tablet by mouth once daily. Take with food. CRESTOR 40 MG TAB Take one(1) tablet daily. NITROGLYCERIN 0.3 MG SUBLINGUAL TAB Dissolve 0.4 mg under the tongue. Usual dose for angina is 1 tablet every 5 minutes for maximum of 3 doses in 15 minutes. Current Facility-Administered Medications Medication Dose Route Frequency perflutren lipid microspheres 1.3 mL in NaCl (PF) 0.9% 10 mL injection (DEFINITY) INTRAVENOUS DIRECTED PRN sodium chloride 0.9 % (flush) 10 mL (BD POSIFLUSH) 10 mL INTRAVENOUS DIRECTED PRN FAMILY HISTORY Problem Relation Age of Onset Stroke Mother Heart Mother Cancer Father prostate Heart Father Breast Cancer Sister Breast Cancer Sister Diabetes Sister Diabetes Brother Diabetes Brother Social History Tobacco Use Smoking status: Former Smoker Years: 15.00 Types: Cigars Quit date: 08/12/2007 Years since quittin.9 Smokeless tobacco: Never Used Tobacco comment: 2-3 per day Substance Use Topics Alcohol use: No Drug use: No REVIEW OF SYSTEMS GENERAL: No weight loss, malaise or fevers/chills HEENT: Negative for frequent or significant headaches, No changes in hearing or vision. NECK: Negative for lumps, goiter, pain and significant neck swelling RESPIRATORY: Negative for cough, hemoptysis, wheezing, dyspnea or shortness of breath CARDIOVASCULAR: Negative for chest pain, leg swelling, orthopnea, or palpitations GI: No nausea, vomiting, or diarrhea/constipation. No hematochezia/melena. No heartburn or reflux symptoms. : No history of dysuria, frequency or incontinence MUSCULOSKELETAL: Negative for joint pain or swelling. SKIN: + Left hand tenderness ENDOCRINE: Negative for cold or heat intolerance, polyuria, polydipsia and goiter NEURO: No history of headaches, syncope, paralysis, seizures or tremors MOOD: Negative for depression, anxiety, or suicidal ideation. EXAM: BP 120/72 Pulse 70 Resp 20 Wt 124.7 kg (275 lb) SpO2 97% BMI 41.81 kg/m PHYSICAL EXAM: General Appearance: Well appearing, alert, in no acute distress, well-hydrated, well nourished.. Skin: Mild erythema noted from PIP to wrist of left hand. No swelling, but tender with touch. Decreased core measures abstractor strength/ROM. Improved since last visit. Head: Normocephalic, no masses, lesions, tenderness or abnormalities. Eyes: Anicteric sclera. Extraocular movements are intact. Lungs: Lungs clear to auscultation. No wheezing, rhonchi, rales. Heart: RRR without murmur, gallop, or rubs. No ectopy. Extremities: No deformities, edema, skin discoloration, clubbing or cyanosis. Good capillary refill. Musculoskeletal: No joint swelling, deformity. Tender PIP on left hand. Peripheral Pulses: Normal, Capillary refill <2secs, strong peripheral pulses, Pulses palpable. Neurologic: Gait normal. Reflexes normal and symmetric. Sensation grossly intact. ASSESSMENT/PLAN: 1. Cellulitis of skin - ICD9: 682.9, ICD10: L03.90 (primary diagnosis) - Continue take clindamycin until gone. - Watch for signs of worsening infection. Patient verbalizes understanding when to seek care. 2. Left hand pain - ICD9: 729.5, ICD10: M79.642 - If pain does not improve after finishing antibiotic recommend getting x-ray of left hand. - CONSULT TO ORTHOPAEDICS - XR HAND GENERAL 3V PA/LAT/OBL LEFT Follow-up as needed or sooner if symptoms get worse or do not improve. Discussed treatment plan and patient voices understanding. Patient's questions answered appropriately. Medications and potential side effects were discussed and patient voices understanding. Shereen Holt APRN.RODRIGUEZ This note was partially generated using [employer] voice recognition system. Note was reviewed for accuracy. There may be minor misspellings or grammar miscues with Dragon voice recognition. documented in this encounterL[facility]04-19-2022 Miscellaneous Notes* Telephone Encounter - Lin Phan RPh - 07/16/2021 10:08 AM EDT [employer] message sent. Lin Phan RPh.' documented in this encounterLicking [facility]04-18-2022 History of Present illness Narrative* Tessie Whyte PA-C - 07/15/2021 1:02 PM EDT This note was created using [employer]. Subjective Lovely Devi is a 75 year old male. HPI Patient presents with a chief complaint of cough, shortness of breath and wheezing over the past 3 days. He has had some nausea. No vomiting. He has had some diarrhea off and on. Denies chest pain. Cough is productive. He was around some great grandchildren who were sick recently. He did have COVIDin March 2021. He does have an albuterol inhaler that he has been using at home. Denies a fever. He has had some nasal congestion as well. Review of Systems Constitutional: Negative. HENT: Positive for congestion and postnasal drip. Negative for ear pain. Respiratory: Positive for cough, shortness of breath and wheezing. Cardiovascular: Negative. Gastrointestinal: Negative. Genitourinary: Negative. Musculoskeletal: Negative. All other systems reviewed and are negative. PAST MEDICAL HISTORY Diagnosis Date ASHD (arteriosclerotic heart disease) 02/19/2015 Atrial fibrillation (HCC) 07/03/2011 Automatic implantable cardiac defibrillator in situ Petit's esophagus with esophagitis 03/01/2015 Benign neoplasm of colon Chronic diarrhea 09/16/2011 Coronary atherosclerosis of unspecified type of vessel, makah or graft s/p [place] in 1985 Diverticulosis of colon (without mention of hemorrhage) Duodenitis without mention of hemorrhage Dysphagia 03/01/2015 Facet arthritis of lumbar region 07/14/2017 GERD (gastroesophageal reflux disease) 06/10/12 Heart attack (HCC) Labyrinthitis 02/05/2010 Neurocardiogenic syncope 03/01/2015 Obesity 09/16/2011 JESSICA treated with BiPAP DME [facility] Other and unspecified hyperlipidemia Other specified forms of chronic ischemic heart disease Paroxysmal ventricular tachycardia (HCC) Snoring Stroke (HCC) Tinea of nail 01/13/2011 Type 2 diabetes mellitus with stage 3 chronic kidney disease, with long-term current use of insulin(HCC) 06/15/2017 Unspecified essential hypertension Current Outpatient Medications Medication Sig Dispense Refill predniSONE (DELTASONE) 20 mg tablet Take 2 tablets by mouth once daily for 5 days. 10 tablet 0 guaiFENesin (MUCINEX) 600 mg 12 hr tablet Take 2 tablets by mouth twice daily for 7 days. 28 tablet0 benzonatate (TESSALON PERLES) 100 mg capsule Take 2 capsules by mouth three times daily as needed. 30 capsule 0 clindamycin (CLEOCIN) 300 mg capsule Take 1 capsule by mouth three times daily for 10 days. 30 capsule 0 tiZANidine (ZANAFLEX) 4 mg tablet Take 1 tablet by mouth every 8 hours as needed (muscle spasms) for up to 10 days. 30 tablet 0 FLUoxetine (PROZAC) 20 mg capsule Take 1 capsule by mouth once daily. 90 capsule 3 insulin glargine (BASAGLAR KWIKPEN U-100 INSULIN) 100 unit/mL (3 mL) Inject 32 Units subcutaneouslyevery morning AND 32 Units daily at bedtime. nortriptyline (PAMELOR) 25 mg capsule Take 1 capsule by mouth daily at bedtime. 90 capsule 3 insulin lispro (HUMALOG KWIKPEN INSULIN) 100 unit/mL Inject 20 Units subcutaneously three times daily before meals. Plus sliding scale as directed ( 1 unit for every 50 mg/dL above 150 mg/dL) albuterol HFA (PROVENTIL HFA) 90 mcg/actuation inhaler Inhale 2 Puffs as instructed every 4 hours while awake. 1 Each 1 guaiFENesin (MUCINEX) 600 mg 12 hr tablet Take 1 tablet by mouth twice daily. (Patient not taking: Reported on 07/11/2021 ) 20 tablet 0 benzonatate (TESSALON PERLES) 100 mg capsule Take 2 capsules by mouth twice daily as needed for cough. (Patient not taking: Reported on 07/11/2021 ) 40 capsule 0 gabapentin (NEURONTIN) 300 mg capsule Take 3 capsules by mouth three times daily for 30 days. 270 capsule 2 dulaglutide (TRULICITY) 3 mg/0.5 mL pen injector Inject 3 mg subcutaneously one time a week. 6 mL 3 furosemide (LASIX) 40 mg tablet Take 2 tablets by mouth twice daily. [id number]-[id number]-EPA-Fish Oil (FISH OIL) 1,000 mg (120 mg-180 mg) cap Take 1 capsule by mouth once daily. 90 capsule 3 rOPINIRole (REQUIP) 0.5 mg tablet Take 1 tablet by mouth daily at bedtime. 90 tablet 3 lisinopril (ZESTRIL, PRINIVIL) 20 mg tablet Take 1 tablet by mouth once daily. 90 tablet 1 clopidogrel (PLAVIX) 75 mg tablet Take 1 tablet by mouth once daily. 90 tablet 3 warfarin (COUMADIN) 3 mg tablet 3 mg every Mon, Fri; 6 mg all other days 150 tablet 3 Insulin Syringe-Needle U-100 (BD ULTRAFINE INSULIN) 1 mL 31 gauge x 5/16 1 Each five times daily. 450 Each 3 latanoprost (XALATAN) 0.005 % ophthalmic solution Use 1 Drop in both eyes three times daily. colestipol (COLESTID) 1 gram tablet Take 1 g by mouth twice daily. carvedilol (COREG) 3.125 mg tablet Take 2 tablets by mouth twice daily. for one week starting on 06/20/16 then will be taking 6.25 x 2 daily . 0 BIPAP Initiate BiPAP @ 24/18 cm of water with humidification. Mask (per patient preference), chin strap, filters, tubing / heated tubing, heated humidity and lifetime supplies. Dx. JESSICA G47.33 327.23 - fax compliance download to [phone] 1 Device 0 flash glucose sensor (FREESTYLE FILI 14 DAY SENSOR) kit 1 Each four times daily. 1 Kit 11 spironolactone (ALDACTONE) 25 mg tablet Take 1 tablet by mouth once daily. isosorbide mononitrate ER (IMDUR) 30 mg 24 hr tablet Take 60 mg by mouth once daily. 0 blood sugar diagnostic ([employer] BLOOD GLUCOSE SYSTEM) test strip Use as instructed to check blood sugar 3 to 4 times daily DM: yes Insulin: yes DX:11.9 400 Strip 3 fenofibrate nanocrystallized (TRICOR) 145 mg tablet Take 1 tablet by mouth once daily. [address] (PROTONIX) 40 mg tablet Take 40 mg by mouth once daily. Lancets (ONE TOUCH ULTRASOFT LANCETS) lancets Use with CeDe Groupuch Glucometer as directed 100 Each 3 Aspirin 81 mg ORAL Tab Take 1 tablet by mouth once daily. Take with food. 30 tablet 11 CRESTOR 40 MG TAB Take one(1) tablet daily. 0 NITROGLYCERIN 0.3 MG SUBLINGUAL TAB Dissolve 0.4 mg under the tongue. Usual dose for angina is 1 tablet every 5 minutes for maximum of 3 doses in 15 minutes. 0 Current Facility-Administered Medications Medication Dose Route Frequency Provider Last Rate Last Admin perflutren lipid microspheres 1.3 mL in NaCl (PF) 0.9% 10 mL injection (DEFINITY) INTRAVENOUS DIRECTED PRN Ramiro Null APRN.FAIZA FRIAS sodium chloride 0.9 % (flush) 10 mL (BD POSIFLUSH) 10 mL INTRAVENOUS DIRECTED PRN Ramiro Null APRN.FAIZA FRIAS PAST SURGICAL HISTORY Procedure Laterality Date COLONOSCOPY FLX DX W/COLLJ SPEC WHEN PFRMD 12/21/2017 Dr. Anthony-repeat 3 years-11/2020 COLONOSCOPY W/BIOPSY SINGLE/MULTIPLE 02/21/2009 ESOPHAGOGASTRODUODENOSCOPY TRANSORAL DIAGNOSTIC EGD ESOPHAGOGASTRODUODENOSCOPY [facility]OPHAGOGASTRODUODENOSCOPY TRANSORAL DIAGNOSTIC 05/24/2015 EGD ESOPHAGOGASTRODUODENOSCOPY TRANSORAL DIAGNOSTIC 12/21/2017 Dr. Anthony-repeat 3 years-11/2020 HEART CATHETERIZATION 12/15/2014 [facility] - see scanned documents HEART SURGERY HX 1 stent LEFT HEART CATH,PERCUTANEOUS Cardiac cath, L heart LEFT HEART CATH,PERCUTANEOUS 06/20/2011 Cardiac cath, L heart PAST SURGICAL HISTORY OF ICD/ pacemaker at [facility] PERC TRANSL COR ANGIO Percutaneous Transluminal Coronary Angio Status REMV CATARACT EXTRACAP,INSERT LENS Bilateral 2020 Right corrected in 2020 and left 2018. FAMILY HISTORY Problem Relation Age of Onset Stroke Mother Heart Mother Cancer Father prostate Heart Father Breast Cancer Sister Breast Cancer Sister Diabetes Sister Diabetes Brother Diabetes Brother Social History Tobacco Use Smoking status: Former Smoker Years: 15.00 Types: Cigars Quit date: 08/12/2007 Years since quittin.9 Smokeless tobacco: Never Used Tobacco comment: 2-3 per day Substance Use Topics Alcohol use: No Drug use: No Objective BP 146/86 Pulse 94 Temp 36.8 C (98.2 F) Resp 24 Wt 125 kg (275 lb 9.6 oz) SpO2 97% BMI 41.90 kg/m Physical Exam Vitals reviewed. Constitutional: Appearance: Normal appearance. HENT: Head: Normocephalic and atraumatic. Right Ear: Tympanic membrane, ear canal and external ear normal. Left Ear: Tympanic membrane, ear canal and external ear normal. Nose: Congestion present. Mouth/Throat: Mouth: Mucous membranes are moist. Pharynx: Oropharynx is clear. Cardiovascular: Rate and Rhythm: Normal rate and regular rhythm. Heart sounds: Normal heart sounds. Pulmonary: Effort: Pulmonary effort is normal. No respiratory distress. Breath sounds: Wheezing and rhonchi present. No rales. Musculoskeletal: Cervical back: Neck supple. Lymphadenopathy: Cervical: No cervical adenopathy. Skin: General: Skin is warm and dry. Findings: No rash. Neurological: General: No focal deficit present. Mental Status: He is alert and oriented to person, place, and time. Assessment and Plan ASSESSMENT/PLAN: 1. Bronchitis - ICD9: 490, ICD10: J40 cxr clear. Prednisone tessalon and mucinex rx. continue albuterol mdi as needed. Red flags to be seen in ed. Follow up with pcp. Flu.covid swab pending, not likely covid again given he had it in March. - XR CHEST 2V FRONTAL/LAT - COVID WITH FLUA+B, ROUTINE Tessie Whyte PA-C documented in this encounterLicking [facility]04-14-2022 Miscellaneous Notes* Telephone Encounter - Ashley Ellis Ma - 07/11/2021 8:41 AM EDT Pt called and appt scheduled documented in this encounterLicking [facility]04-06-2022 Miscellaneous Notes* Telephone Encounter - Kelsie Cerrato [facility] - 07/03/2021 10:46 AM EDT MYC msg sent for INR in therapeutic range. documented in this encounterLicking [facility] Hospital05-01-2019 History of Past illness Narrative* Problem Noted Date Resolved Date Localized swelling, mass and lump, neck 07/29/19 19 06/05/2020 Family history of cerebrovascular accident (CVA) 01/26/2018 06/05/2020 Subsequent non-ST elevation (NSTEMI) myocardial infarction within 4 weeks of initial infarction 12/25/2014 06/05/2020 Elevated troponin I level 01/29/20132020 Overview: Last Assessment & Plan: --Troponin 0.13 at [facility] and 0.14 [facility]. --Repeat troponin down to 0.08 --4th troponin pending tonight. --CP free. --Continue CAD management. --Telemetry. Leukocytosis 01/29/2013 06/05/2020 Overview: Last Assessment & Plan: --WBC 11.6 upon admission. --+Febrile 102.3 --Pt denies any fever, illness, exposure, cough --CXR 01/29 negative for any acute process. --UA, urine cx, and blood cx ordered. --APAP PRN. --CBC in AM, monitor temp. Chronic diarrhea 09/16/2011 06/07/2014 Labyrinthitis 02/05/2010 06/07/2014 Type 2 diabetes mellitus, uncontrolled 8 02/19/2015 Duodenitis without mention of hemorrhage 06/07/2014 documented as of this encounter (statuses as of 07/03/2021) [facility] of Past illness Narrative* Problem Noted Date Resolved Date Localized swelling, mass and lump, neck 07/29/19 19 06/05/2020 Family history of cerebrovascular accident (CVA) 01/26/2018 06/05/2020 Subsequent non-ST elevation (NSTEMI) myocardial infarction within 4 weeks of initial infarction 12/25/2014 06/05/2020 Elevated troponin I level 01/29/20132020 Overview: Last Assessment & Plan: --Troponin 0.13 at [facility] and 0[facility]. --Repeat troponin down to 0.08 --4th troponin pending tonight. --CP free. --Continue CAD management. --Telemetry. Leukocytosis 01/29/2013 06/05/2020 Overview: Last Assessment & Plan: --WBC 11.6 upon admission. --+Febrile 102.3 --Pt denies any fever, illness, exposure, cough --CXR 01/29 negative for any acute process. --UA, urine cx, and blood cx ordered. --APAP PRN. --CBC in AM, monitor temp. Chronic diarrhea 09/16/2011 06/07/2014 Labyrinthitis 02/05/2010 06/07/2014 Type 2 diabetes mellitus, uncontrolled 8 02/19/2015 Duodenitis without mention of hemorrhage 06/07/2014 documented as of this encounter (statuses as of 07/03/2021) [facility] illness Narrative* Problem Noted Date Resolved Date Localized swelling, mass and lump, neck 07/29/19 19 06/05/2020 Family history of cerebrovascular accident (CVA) 01/26/2018 06/05/2020 Subsequent non-ST elevation (NSTEMI) myocardial infarction within 4 weeks of initial infarction 12/25/2014 06/05/2020 Elevated troponin I level 01/29/20132020 Overview: Last Assessment & Plan: --Troponin 0.13 at [facility] and [facility]. --Repeat troponin down to 0.08 --4th troponin pending tonight. --CP free. --Continue CAD management. --Telemetry. Leukocytosis 01/29/2013 06/05/2020 Overview: Last Assessment & Plan: --WBC 11.6 upon admission. --+Febrile 102.3 --Pt denies any fever, illness, exposure, cough --CXR 11/2 negative for any acute process. --UA, urine cx, and blood cx ordered. --APAP PRN. --CBC in AM, monitor temp. Chronic diarrhea 09/16/2011 06/07/2014 Labyrinthitis 02/05/2010 06/07/2014 Type 2 diabetes mellitus, uncontrolled 8 02/19/2015 Duodenitis without mention of hemorrhage 06/07/2014 documented as of this encounter (statuses as of 07/11/2021) [facility] illness Narrative* Problem Noted Date Resolved Date Localized swelling, mass and lump, neck 07/29/1906/05/2020 Family history of cerebrovascular accident (CVA) 01/26/2018 06/05/2020 Subsequent non-ST elevation (NSTEMI) myocardial infarction within 4 weeks of initial infarction 12/25/2014 06/05/2020 Elevated troponin I level 01/29/20132020 Overview: Last Assessment & Plan: --Troponin 0.13 at [facility] and [facility]. --Repeat troponin down to 0.08 --4th troponin pending tonight. --CP free. --Continue CAD management. --Telemetry. Leukocytosis 01/29/2013 06/05/2020 Overview: Last Assessment & Plan: --WBC 11.6 upon admission. --+Febrile 102.3 --Pt denies any fever, illness, exposure, cough --CXR 11/2 negative for any acute process. --UA, urine cx, and blood cx ordered. --APAP PRN. --CBC in AM, monitor temp. Chronic diarrhea 09/16/2011 06/07/2014 Labyrinthitis 02/05/2010 06/07/2014 Type 2 diabetes mellitus, uncontrolled 8 02/19/2015 Duodenitis without mention of hemorrhage 06/07/2014 documented as of this encounter (statuses as of 07/15/2021) [facility] Narrative* Problem Noted Date Resolved Date Localized swelling, mass and lump, neck 07/29/1906/05/2020 Family history of cerebrovascular accident (CVA) 01/26/2018 06/05/2020 Subsequent non-ST elevation (NSTEMI) myocardial infarction within 4 weeks of initial infarction 12/25/2014 06/05/2020 Elevated troponin I level 01/29/20132020 Overview: Last Assessment & Plan: --Troponin 0.13 at [facility] and [facility]. --Repeat troponin down to 0.08 --4th troponin pending tonight. --CP free. --Continue CAD management. --Telemetry. Leukocytosis 01/29/2013 06/05/2020 Overview: Last Assessment & Plan: --WBC 11.6 upon admission. --+Febrile 102.3 --Pt denies any fever, illness, exposure, cough --CXR 01/29 negative for any acute process. --UA, urine cx, and blood cx ordered. --APAP PRN. --CBC in AM, monitor temp. Chronic diarrhea 09/16/2011 06/07/2014 Labyrinthitis 02/05/2010 06/07/2014 Type 2 diabetes mellitus, uncontrolled 8 02/19/2015 Duodenitis without mention of hemorrhage 06/07/2014 documented as of this encounter (statuses as of 07/16/2021) [facility] Narrative* Problem Noted Date Resolved Date Localized swelling, mass and lump, neck 07/29/1906/05/2020 Family history of cerebrovascular accident (CVA) 01/26/2018 06/05/2020 Subsequent non-ST elevation (NSTEMI) myocardial infarction within 4 weeks of initial infarction 12/25/2014 06/05/2020 Elevated troponin I level 01/29/20132020 Overview: Last Assessment & Plan: --Troponin 0.13 at [facility] and [facility]. --Repeat troponin down to 0.08 --4th troponin pending tonight. --CP free. --Continue CAD management. --Telemetry. Leukocytosis 01/29/2013 06/05/2020 Overview: Last Assessment & Plan: --WBC 11.6 upon admission. --+Febrile 102.3 --Pt denies any fever, illness, exposure, cough --CXR 11/2 negative for any acute process. --UA, urine cx, and blood cx ordered. --APAP PRN. --CBC in AM, monitor temp. Chronic diarrhea 09/16/2011 06/07/2014 Labyrinthitis 02/05/2010 06/07/2014 Type 2 diabetes mellitus, uncontrolled 8 02/19/2015 Duodenitis without mention of hemorrhage 06/07/2014 documented as of this encounter (statuses as of 07/17/2021) [facility] Narrative* Problem Noted Date Resolved Date Localized swelling, mass and lump, neck 07/29/1906/05/2020 Family history of cerebrovascular accident (CVA) 01/26/2018 06/05/2020 Subsequent non-ST elevation (NSTEMI) myocardial infarction within 4 weeks of initial infarction 12/25/2014 06/05/2020 Elevated troponin I level 01/29/20132020 Overview: Last Assessment & Plan: --Troponin 0.13 at [facility] and [facility]. --Repeat troponin down to 0.08 --4th troponin pending tonight. --CP free. --Continue CAD management. --Telemetry. Leukocytosis 01/29/2013 06/05/2020 Overview: Last Assessment & Plan: --WBC 11.6 upon admission. --+Febrile 102.3 --Pt denies any fever, illness, exposure, cough --CXR 11/2 negative for any acute process. --UA, urine cx, and blood cx ordered. --APAP PRN. --CBC in AM, monitor temp. Chronic diarrhea 09/16/2011 06/07/2014 Labyrinthitis 02/05/2010 06/07/2014 Type 2 diabetes mellitus, uncontrolled 8 02/19/2015 Duodenitis without mention of hemorrhage 06/07/2014 documented as of this encounter (statuses as of 07/18/2021) [facility] Narrative* Problem Noted Date Resolved Date Localized swelling, mass and lump, neck 07/29/19 19 06/05/2020 Family history of cerebrovascular accident (CVA) 01/26/2018 06/05/2020 Subsequent non-ST elevation (NSTEMI) myocardial infarction within 4 weeks of initial infarction 12/25/2014 06/05/2020 Elevated troponin I level 01/29/20132020 Overview: Last Assessment & Plan: --Troponin 0.13 at [facility] and [facility]. --Repeat troponin down to 0.08 --4th troponin pending tonight. --CP free. --Continue CAD management. --Telemetry. Leukocytosis 01/29/2013 06/05/2020 Overview: Last Assessment & Plan: --WBC 11.6 upon admission. --+Febrile 102.3 --Pt denies any fever, illness, exposure, cough --CXR 01/29 negative for any acute process. --UA, urine cx, and blood cx ordered. --APAP PRN. --CBC in AM, monitor temp. Chronic diarrhea 09/16/2011 06/07/2014 Labyrinthitis 02/05/2010 06/07/2014 Type 2 diabetes mellitus, uncontrolled 8 02/19/2015 Duodenitis without mention of hemorrhage 06/07/2014 documented as of this encounter (statuses as of 07/25/2021) [facility] Narrative* Problem Noted Date Resolved Date Localized swelling, mass and lump, neck 07/29/1906/05/2020 Family history of cerebrovascular accident (CVA) 01/26/2018 06/05/2020 Subsequent non-ST elevation (NSTEMI) myocardial infarction within 4 weeks of initial infarction 12/25/2014 06/05/2020 Elevated troponin I level 01/29/20132020 Overview: Last Assessment & Plan: --Troponin 0.13 at [facility] and [facility]. --Repeat troponin down to 0.08 --4th troponin pending tonight. --CP free. --Continue CAD management. --Telemetry. Leukocytosis 01/29/2013 06/05/2020 Overview: Last Assessment & Plan: --WBC 11.6 upon admission. --+Febrile 102.3 --Pt denies any fever, illness, exposure, cough --CXR 11/2 negative for any acute process. --UA, urine cx, and blood cx ordered. --APAP PRN. --CBC in AM, monitor temp. Chronic diarrhea 09/16/2011 06/07/2014 Labyrinthitis 02/05/2010 06/07/2014 Type 2 diabetes mellitus, uncontrolled 8 02/19/2015 Duodenitis without mention of hemorrhage 06/07/2014 documented as of this encounter (statuses as of 07/29/2021) [facility] Narrative* Problem Noted Date Resolved Date Localized swelling, mass and lump, neck 07/29/19 19 06/05/2020 Family history of cerebrovascular accident (CVA) 01/26/2018 06/05/2020 Subsequent non-ST elevation (NSTEMI) myocardial infarction within 4 weeks of initial infarction 12/25/2014 06/05/2020 Elevated troponin I level 01/29/20132020 Overview: Last Assessment & Plan: --Troponin 0.13 at [facility] and [facility]. --Repeat troponin down to 0.08 --4th troponin pending tonight. --CP free. --Continue CAD management. --Telemetry. Leukocytosis 01/29/2013 06/05/2020 Overview: Last Assessment & Plan: --WBC 11.6 upon admission. --+Febrile 102.3 --Pt denies any fever, illness, exposure, cough --CXR 11/2 negative for any acute process. --UA, urine cx, and blood cx ordered. --APAP PRN. --CBC in AM, monitor temp. Chronic diarrhea 09/16/2011 06/07/2014 Labyrinthitis 02/05/2010 06/07/2014 Type 2 diabetes mellitus, uncontrolled 8 02/19/2015 Duodenitis without mention of hemorrhage 06/07/2014 documented as of this encounter (statuses as of 07/31/2021) [facility] Narrative* Problem Noted Date Resolved Date Localized swelling, mass and lump, neck 07/29/19 19 06/05/2020 Family history of cerebrovascular accident (CVA) 01/26/2018 06/05/2020 Subsequent non-ST elevation (NSTEMI) myocardial infarction within 4 weeks of initial infarction 12/25/2014 06/05/2020 Elevated troponin I level 01/29/20132020 Overview: Last Assessment & Plan: --Troponin 0.13 at [facility] and [facility]. --Repeat troponin down to 0.08 --4th troponin pending tonight. --CP free. --Continue CAD management. --Telemetry. Leukocytosis 01/29/2013 06/05/2020 Overview: Last Assessment & Plan: --WBC 11.6 upon admission. --+Febrile 102.3 --Pt denies any fever, illness, exposure, cough --CXR 01/29 negative for any acute process. --UA, urine cx, and blood cx ordered. --APAP PRN. --CBC in AM, monitor temp. Chronic diarrhea 09/16/2011 06/07/2014 Labyrinthitis 02/05/2010 06/07/2014 Type 2 diabetes mellitus, uncontrolled 8 02/19/2015 Duodenitis without mention of hemorrhage 06/07/2014 documented as of this encounter (statuses as of 08/08/2021) [facility]05-01-2019 History of Past illness Narrative* Problem Noted Date Resolved Date Localized swelling, mass and lump, neck 07/29/19 19 06/05/2020 Family history of cerebrovascular accident (CVA) 01/26/2018 06/05/2020 Subsequent non-ST elevation (NSTEMI) myocardial infarction within 4 weeks of initial infarction 12/25/2014 06/05/2020 Elevated troponin I level 01/29/20132020 Overview: Last Assessment & Plan: --Troponin 0.13 at [facility] and 0.14 in [facility]. --Repeat troponin down to 0.08 --4th troponin pending tonight. --CP free. --Continue CAD management. --Telemetry. Leukocytosis 01/29/2013 06/05/2020 Overview: Last Assessment & Plan: --WBC 11.6 upon admission. --+Febrile 102.3 --Pt denies any fever, illness, exposure, cough --CXR 01/29 negative for any acute process. --UA, urine cx, and blood cx ordered. --APAP PRN. --CBC in AM, monitor temp. Chronic diarrhea 09/16/2011 06/07/2014 Labyrinthitis 02/05/2010 06/07/2014 Type 2 diabetes mellitus, uncontrolled 8 02/19/2015 Duodenitis without mention of hemorrhage 06/07/2014 documented as of this encounter (statuses as of 08/08/2021) [facility]05-01-2019 History of Past illness Narrative* Problem Noted Date Resolved Date Localized swelling, mass and lump, neck 07/29/19 19 06/05/2020 Family history of cerebrovascular accident (CVA) 01/26/2018 06/05/2020 Subsequent non-ST elevation (NSTEMI) myocardial infarction within 4 weeks of initial infarction 12/25/2014 06/05/2020 Elevated troponin I level 01/29/20132020 Overview: Last Assessment & Plan: --Troponin 0.13 at [facility] and 0.[facility]. --Repeat troponin down to 0.08 --4th troponin pending tonight. --CP free. --Continue CAD management. --Telemetry. Leukocytosis 01/29/2013 06/05/2020 Overview: Last Assessment & Plan: --WBC 11.6 upon admission. --+Febrile 102.3 --Pt denies any fever, illness, exposure, cough --CXR 11/2 negative for any acute process. --UA, urine cx, and blood cx ordered. --APAP PRN. --CBC in AM, monitor temp. Chronic diarrhea 09/16/2011 06/07/2014 Labyrinthitis 02/05/2010 06/07/2014 Type 2 diabetes mellitus, uncontrolled 8 02/19/2015 Duodenitis without mention of hemorrhage 06/07/2014 documented as of this encounter (statuses as of 08/09/2021) [facility]05-01[facility]2019 History of Past illness Narrative* Problem Noted Date Resolved Date Localized swelling, mass and lump, neck 07/29/1906/05/2020 Family history of cerebrovascular accident (CVA) 01/26/2018 06/05/2020 Subsequent non-ST elevation (NSTEMI) myocardial infarction within 4 weeks of initial infarction 12/25/2014 06/05/2020 Elevated troponin I level 01/29/20132020 Overview: Last Assessment & Plan: --Troponin 0.13 at [facility] and 0[facility]. --Repeat troponin down to 0.08 --4th troponin pending tonight. --CP free. --Continue CAD management. --Telemetry. Leukocytosis 01/29/2013 06/05/2020 Overview: Last Assessment & Plan: --WBC 11.6 upon admission. --+Febrile 102.3 --Pt denies any fever, illness, exposure, cough --CXR 11/2 negative for any acute process. --UA, urine cx, and blood cx ordered. --APAP PRN. --CBC in AM, monitor temp. Chronic diarrhea 09/16/2011 06/07/2014 Labyrinthitis 02/05/2010 06/07/2014 Type 2 diabetes mellitus, uncontrolled 8 02/19/2015 Duodenitis without mention of hemorrhage 06/07/2014 documented as of this encounter (statuses as of 08/14/2021) [facility]05-[facility]2019 History of Past illness Narrative* Problem Noted Date Resolved Date Localized swelling, mass and lump, neck 07/29/19 19 06/05/2020 Family history of cerebrovascular accident (CVA) 01/26/2018 06/05/2020 Subsequent non-ST elevation (NSTEMI) myocardial infarction within 4 weeks of initial infarction 12/25/2014 06/05/2020 Elevated troponin I level 01/29/20132020 Overview: Last Assessment & Plan: --Troponin 0.13 at [facility] and 0[facility]. --Repeat troponin down to 0.08 --4th troponin pending tonight. --CP free. --Continue CAD management. --Telemetry. Leukocytosis 01/29/2013 06/05/2020 Overview: Last Assessment & Plan: --WBC 11.6 upon admission. --+Febrile 102.3 --Pt denies any fever, illness, exposure, cough --CXR 01/29 negative for any acute process. --UA, urine cx, and blood cx ordered. --APAP PRN. --CBC in AM, monitor temp. Chronic diarrhea 09/16/2011 06/07/2014 Labyrinthitis 02/05/2010 06/07/2014 Type 2 diabetes mellitus, uncontrolled 8 02/19/2015 Duodenitis without mention of hemorrhage 06/07/2014 documented as of this encounter (statuses as of 08/29/2021) [facility]05-[facility]2019 History of Past illness Narrative* Problem Noted Date Resolved Date Localized swelling, mass and lump, neck 07/29/19 19 06/05/2020 Family history of cerebrovascular accident (CVA) 01/26/2018 06/05/2020 Subsequent non-ST elevation (NSTEMI) myocardial infarction within 4 weeks of initial infarction 12/25/2014 06/05/2020 Elevated troponin I level 01/29/20132020 Overview: Last Assessment & Plan: --Troponin 0.13 at [facility] and 0[facility]. --Repeat troponin down to 0.08 --4th troponin pending tonight. --CP free. --Continue CAD management. --Telemetry. Leukocytosis 01/29/2013 06/05/2020 Overview: Last Assessment & Plan: --WBC 11.6 upon admission. --+Febrile 102.3 --Pt denies any fever, illness, exposure, cough --CXR 11/2 negative for any acute process. --UA, urine cx, and blood cx ordered. --APAP PRN. --CBC in AM, monitor temp. Chronic diarrhea 09/16/2011 06/07/2014 Labyrinthitis 02/05/2010 06/07/2014 Type 2 diabetes mellitus, uncontrolled 8 02/19/2015 Duodenitis without mention of hemorrhage 06/07/2014 documented as of this encounter (statuses as of 09/06/2021) [facility]05-01[facility]2019 History of Past illness Narrative* Problem Noted Date Resolved Date Localized swelling, mass and lump, neck 07/29/19 19 06/05/2020 Family history of cerebrovascular accident (CVA) 01/26/2018 06/05/2020 Subsequent non-ST elevation (NSTEMI) myocardial infarction within 4 weeks of initial infarction 12/25/2014 06/05/2020 Elevated troponin I level 01/29/20132020 Overview: Last Assessment & Plan: --Troponin 0.13 at [facility] and 0[facility]. --Repeat troponin down to 0.08 --4th troponin pending tonight. --CP free. --Continue CAD management. --Telemetry. Leukocytosis 01/29/2013 06/05/2020 Overview: Last Assessment & Plan: --WBC 11.6 upon admission. --+Febrile 102.3 --Pt denies any fever, illness, exposure, cough --CXR 11/2 negative for any acute process. --UA, urine cx, and blood cx ordered. --APAP PRN. --CBC in AM, monitor temp. Chronic diarrhea 09/16/2011 06/07/2014 Labyrinthitis 02/05/2010 06/07/2014 Type 2 diabetes mellitus, uncontrolled 8 02/19/2015 Duodenitis without mention of hemorrhage 06/07/2014 documented as of this encounter (statuses as of 09/09/2021) [facility]2019 History of Past illness Narrative* Problem Noted Date Resolved Date Localized swelling, mass and lump, neck 07/29/19 19 06/05/2020 Family history of cerebrovascular accident (CVA) 01/26/2018 06/05/2020 Subsequent non-ST elevation (NSTEMI) myocardial infarction within 4 weeks of initial infarction 12/25/2014 06/05/2020 Elevated troponin I level 01/29/20132020 Overview: Last Assessment & Plan: --Troponin 0.13 at [facility] and [facility]. --Repeat troponin down to 0.08 --4th troponin pending tonight. --CP free. --Continue CAD management. --Telemetry. Leukocytosis 01/29/2013 06/05/2020 Overview: Last Assessment & Plan: --WBC 11.6 upon admission. --+Febrile 102.3 --Pt denies any fever, illness, exposure, cough --CXR 01/29 negative for any acute process. --UA, urine cx, and blood cx ordered. --APAP PRN. --CBC in AM, monitor temp. Chronic diarrhea 09/16/2011 06/07/2014 Labyrinthitis 02/05/2010 06/07/2014 Type 2 diabetes mellitus, uncontrolled 02/15/200 8 02/19/2015 Duodenitis without mention of hemorrhage 06/07/2014 documented as of this encounter (statuses as of 09/10/2021) [facility]2019 History of Past illness Narrative* Problem Noted Date Resolved Date Localized swelling, mass and lump, neck 07/29/19 19 06/05/2020 Family history of cerebrovascular accident (CVA) 01/26/2018 06/05/2020 Subsequent non-ST elevation (NSTEMI) myocardial infarction within 4 weeks of initial infarction 12/25/2014 06/05/2020 Elevated troponin I level 01/29/20132020 Overview: Last Assessment & Plan: --Troponin 0.13 at [facility] and [facility]. --Repeat troponin down to 0.08 --4th troponin pending tonight. --CP free. --Continue CAD management. --Telemetry. Leukocytosis 01/29/2013 06/05/2020 Overview: Last Assessment & Plan: --WBC 11.6 upon admission. --+Febrile 102.3 --Pt denies any fever, illness, exposure, cough --CXR 11/2 negative for any acute process. --UA, urine cx, and blood cx ordered. --APAP PRN. --CBC in AM, monitor temp. Chronic diarrhea 09/16/2011 06/07/2014 Labyrinthitis 02/05/2010 06/07/2014 Type 2 diabetes mellitus, uncontrolled 8 02/19/2015 Duodenitis without mention of hemorrhage 06/07/2014 documented as of this encounter (statuses as of 09/11/2021) [facility]05[facility]2019 History of Past illness Narrative* Problem Noted Date Resolved Date Localized swelling, mass and lump, neck 07/29/19 19 06/05/2020 Family history of cerebrovascular accident (CVA) 01/26/2018 06/05/2020 Subsequent non-ST elevation (NSTEMI) myocardial infarction within 4 weeks of initial infarction 12/25/2014 06/05/2020 Elevated troponin I level 01/29/20132020 Overview: Last Assessment & Plan: --Troponin 0.13 at [facility] and [facility]. --Repeat troponin down to 0.08 --4th troponin pending tonight. --CP free. --Continue CAD management. --Telemetry. Leukocytosis 01/29/2013 06/05/2020 Overview: Last Assessment & Plan: --WBC 11.6 upon admission. --+Febrile 102.3 --Pt denies any fever, illness, exposure, cough --CXR 11/2 negative for any acute process. --UA, urine cx, and blood cx ordered. --APAP PRN. --CBC in AM, monitor temp. Chronic diarrhea 09/16/2011 06/07/2014 Labyrinthitis 02/05/2010 06/07/2014 Type 2 diabetes mellitus, uncontrolled 8 02/19/2015 Duodenitis without mention of hemorrhage 06/07/2014 documented as of this encounter (statuses as of 09/19/2021) [facility]2019 History of Past illness Narrative* Problem Noted Date Resolved Date Localized swelling, mass and lump, neck 07/29/1906/05/2020 Family history of cerebrovascular accident (CVA) 01/26/2018 06/05/2020 Subsequent non-ST elevation (NSTEMI) myocardial infarction within 4 weeks of initial infarction 12/25/2014 06/05/2020 Elevated troponin I level 01/29/20132020 Overview: Last Assessment & Plan: --Troponin 0.13 at [facility] and 0[facility]. --Repeat troponin down to 0.08 --4th troponin pending tonight. --CP free. --Continue CAD management. --Telemetry. Leukocytosis 01/29/2013 06/05/2020 Overview: Last Assessment & Plan: --WBC 11.6 upon admission. --+Febrile 102.3 --Pt denies any fever, illness, exposure, cough --CXR 01/29 negative for any acute process. --UA, urine cx, and blood cx ordered. --APAP PRN. --CBC in AM, monitor temp. Chronic diarrhea 09/16/2011 06/07/2014 Labyrinthitis 02/05/2010 06/07/2014 Type 2 diabetes mellitus, uncontrolled 8 02/19/2015 Duodenitis without mention of hemorrhage 06/07/2014 documented as of this encounter (statuses as of 10/04/2021) [facility]2019 History of Past illness Narrative* Problem Noted Date Resolved Date Localized swelling, mass and lump, neck 07/29/1906/05/2020 Family history of cerebrovascular accident (CVA) 01/26/2018 06/05/2020 Subsequent non-ST elevation (NSTEMI) myocardial infarction within 4 weeks of initial infarction 12/25/2014 06/05/2020 Elevated troponin I level 01/29/20132020 Overview: Last Assessment & Plan: --Troponin 0.13 at [facility] and 0[facility]. --Repeat troponin down to 0.08 --4th troponin pending tonight. --CP free. --Continue CAD management. --Telemetry. Leukocytosis 01/29/2013 06/05/2020 Overview: Last Assessment & Plan: --WBC 11.6 upon admission. --+Febrile 102.3 --Pt denies any fever, illness, exposure, cough --CXR 01/29 negative for any acute process. --UA, urine cx, and blood cx ordered. --APAP PRN. --CBC in AM, monitor temp. Chronic diarrhea 09/16/2011 06/07/2014 Labyrinthitis 02/05/2010 06/07/2014 Type 2 diabetes mellitus, uncontrolled 8 02/19/2015 Duodenitis without mention of hemorrhage 06/07/2014 documented as of this encounter (statuses as of 10/08/2021) [facility]2019 History of Past illness Narrative* Problem Noted Date Resolved Date Localized swelling, mass and lump, neck 07/29/19 19 06/05/2020 Family history of cerebrovascular accident (CVA) 01/26/2018 06/05/2020 Subsequent non-ST elevation (NSTEMI) myocardial infarction within 4 weeks of initial infarction 12/25/2014 06/05/2020 Elevated troponin I level 01/29/20132020 Overview: Last Assessment & Plan: --Troponin 0.13 at [facility] and 0[facility]. --Repeat troponin down to 0.08 --4th troponin pending tonight. --CP free. --Continue CAD management. --Telemetry. Leukocytosis 01/29/2013 06/05/2020 Overview: Last Assessment & Plan: --WBC 11.6 upon admission. --+Febrile 102.3 --Pt denies any fever, illness, exposure, cough --CXR 2 negative for any acute process. --UA, urine cx, and blood cx ordered. --APAP PRN. --CBC in AM, monitor temp. Chronic diarrhea 09/16/2011 06/07/2014 Labyrinthitis 02/05/2010 06/07/2014 Type 2 diabetes mellitus, uncontrolled 8 02/19/2015 Duodenitis without mention of hemorrhage 06/07/2014 documented as of this encounter (statuses as of 10/09/2021) [facility]2019 History of Past illness Narrative* Problem Noted Date Resolved Date Localized swelling, mass and lump, neck 07/29/1906/05/2020 Family history of cerebrovascular accident (CVA) 01/26/2018 06/05/2020 Subsequent non-ST elevation (NSTEMI) myocardial infarction within 4 weeks of initial infarction 12/25/2014 06/05/2020 Elevated troponin I level 01/29/20132020 Overview: Last Assessment & Plan: --Troponin 0.13 at [facility] and 0[facility]. --Repeat troponin down to 0.08 --4th troponin pending tonight. --CP free. --Continue CAD management. --Telemetry. Leukocytosis 01/29/2013 06/05/2020 Overview: Last Assessment & Plan: --WBC 11.6 upon admission. --+Febrile 102.3 --Pt denies any fever, illness, exposure, cough --CXR 01/29 negative for any acute process. --UA, urine cx, and blood cx ordered. --APAP PRN. --CBC in AM, monitor temp. Chronic diarrhea 09/16/2011 06/07/2014 Labyrinthitis 02/05/2010 06/07/2014 Type 2 diabetes mellitus, uncontrolled 8 02/19/2015 Duodenitis without mention of hemorrhage 06/07/2014 documented as of this encounter (statuses as of 10/21/2021) [facility]05[facility]01[facility]2019 History of Past illness Narrative* Problem Noted Date Resolved Date Localized swelling, mass and lump, neck 07/29/19 06/05/2020 Family history of cerebrovascular accident (CVA) 01/26/2018 06/05/2020 Subsequent non-ST elevation (NSTEMI) myocardial infarction within 4 weeks of initial infarction 12/25/2014 06/05/2020 Elevated troponin I level 01/29/20132020 Overview: Last Assessment & Plan: --Troponin 0.13 at [facility] and [facility]. --Repeat troponin down to 0.08 --4th troponin pending tonight. --CP free. --Continue CAD management. --Telemetry. Leukocytosis 01/29/2013 06/05/2020 Overview: Last Assessment & Plan: --WBC 11.6 upon admission. --+Febrile 102.3 --Pt denies any fever, illness, exposure, cough --CXR 01/29 negative for any acute process. --UA, urine cx, and blood cx ordered. --APAP PRN. --CBC in AM, monitor temp. Chronic diarrhea 09/16/2011 06/07/2014 Labyrinthitis 02/05/2010 06/07/2014 Type 2 diabetes mellitus, uncontrolled 8 02/19/2015 Duodenitis without mention of hemorrhage 06/07/2014 documented as of this encounter (statuses as of 10/23/2021) [facility]2019 History of Past illness Narrative* Problem Noted Date Resolved Date Localized swelling, mass and lump, neck 07/29/19 19 06/05/2020 Family history of cerebrovascular accident (CVA) 01/26/2018 06/05/2020 Subsequent non-ST elevation (NSTEMI) myocardial infarction within 4 weeks of initial infarction 12/25/2014 06/05/2020 Elevated troponin I level 01/29/20132020 Overview: Last Assessment & Plan: --Troponin 0.13 at [facility] and [facility]. --Repeat troponin down to 0.08 --4th troponin pending tonight. --CP free. --Continue CAD management. --Telemetry. Leukocytosis 01/29/2013 06/05/2020 Overview: Last Assessment & Plan: --WBC 11.6 upon admission. --+Febrile 102.3 --Pt denies any fever, illness, exposure, cough --CXR 11/2 negative for any acute process. --UA, urine cx, and blood cx ordered. --APAP PRN. --CBC in AM, monitor temp. Chronic diarrhea 09/16/2011 06/07/2014 Labyrinthitis 02/05/2010 06/07/2014 Type 2 diabetes mellitus, uncontrolled 8 02/19/2015 Duodenitis without mention of hemorrhage 06/07/2014 documented as of this encounter (statuses as of 11/06/2021) [facility] History of Past illness Narrative* Problem Noted Date Resolved Date Localized swelling, mass and lump, neck 07/29/19 19 06/05/2020 Family history of cerebrovascular accident (CVA) 01/26/2018 06/05/2020 Subsequent non-ST elevation (NSTEMI) myocardial infarction within 4 weeks of initial infarction 12/25/2014 06/05/2020 Elevated troponin I level 01/29/20132020 Overview: Last Assessment & Plan: --Troponin 0.13 at [facility] and [facility]. --Repeat troponin down to 0.08 --4th troponin pending tonight. --CP free. --Continue CAD management. --Telemetry. Leukocytosis 01/29/2013 06/05/2020 Overview: Last Assessment & Plan: --WBC 11.6 upon admission. --+Febrile 102.3 --Pt denies any fever, illness, exposure, cough --CXR 11/2 negative for any acute process. --UA, urine cx, and blood cx ordered. --APAP PRN. --CBC in AM, monitor temp. Chronic diarrhea 09/16/2011 06/07/2014 Labyrinthitis 02/05/2010 06/07/2014 Type 2 diabetes mellitus, uncontrolled 8 02/19/2015 Duodenitis without mention of hemorrhage 06/07/2014 documented as of this encounter (statuses as of 11/07/2021) [facility] History of Past illness Narrative* Problem Noted Date Resolved Date Localized swelling, mass and lump, neck 07/29/19 19 06/05/2020 Family history of cerebrovascular accident (CVA) 01/26/2018 06/05/2020 Subsequent non-ST elevation (NSTEMI) myocardial infarction within 4 weeks of initial infarction 12/25/2014 06/05/2020 Elevated troponin I level 01/29/20132020 Overview: Last Assessment & Plan: --Troponin 0.13 at [facility] and [facility]. --Repeat troponin down to 0.08 --4th troponin pending tonight. --CP free. --Continue CAD management. --Telemetry. Leukocytosis 01/29/2013 06/05/2020 Overview: Last Assessment & Plan: --WBC 11.6 upon admission. --+Febrile 102.3 --Pt denies any fever, illness, exposure, cough --CXR 01/29 negative for any acute process. --UA, urine cx, and blood cx ordered. --APAP PRN. --CBC in AM, monitor temp. Chronic diarrhea 09/16/2011 06/07/2014 Labyrinthitis 02/05/2010 06/07/2014 Type 2 diabetes mellitus, uncontrolled 8 02/19/2015 Duodenitis without mention of hemorrhage 06/07/2014 documented as of this encounter (statuses as of 11/07/2021) [facility] History of Past illness Narrative* Problem Noted Date Resolved Date Localized swelling, mass and lump, neck 07/29/19 19 06/05/2020 Family history of cerebrovascular accident (CVA) 01/26/2018 06/05/2020 Subsequent non-ST elevation (NSTEMI) myocardial infarction within 4 weeks of initial infarction 12/25/2014 06/05/2020 Elevated troponin I level 01/29/20132020 Overview: Last Assessment & Plan: --Troponin 0.13 at [facility] and [facility]. --Repeat troponin down to 0.08 --4th troponin pending tonight. --CP free. --Continue CAD management. --Telemetry. Leukocytosis 01/29/2013 06/05/2020 Overview: Last Assessment & Plan: --WBC 11.6 upon admission. --+Febrile 102.3 --Pt denies any fever, illness, exposure, cough --CXR 11/2 negative for any acute process. --UA, urine cx, and blood cx ordered. --APAP PRN. --CBC in AM, monitor temp. Chronic diarrhea 09/16/2011 06/07/2014 Labyrinthitis 02/05/2010 06/07/2014 Type 2 diabetes mellitus, uncontrolled 8 02/19/2015 Duodenitis without mention of hemorrhage 06/07/2014 documented as of this encounter (statuses as of 11/08/2021) [facility] History of Past illness Narrative* Problem Noted Date Resolved Date Localized swelling, mass and lump, neck 07/29/19 19 06/05/2020 Family history of cerebrovascular accident (CVA) 01/26/2018 06/05/2020 Subsequent non-ST elevation (NSTEMI) myocardial infarction within 4 weeks of initial infarction 12/25/2014 06/05/2020 Elevated troponin I level 01/29/20132020 Overview: Last Assessment & Plan: --Troponin 0.13 at [facility] and [facility]. --Repeat troponin down to 0.08 --4th troponin pending tonight. --CP free. --Continue CAD management. --Telemetry. Leukocytosis 01/29/2013 06/05/2020 Overview: Last Assessment & Plan: --WBC 11.6 upon admission. --+Febrile 102.3 --Pt denies any fever, illness, exposure, cough --CXR 11/2 negative for any acute process. --UA, urine cx, and blood cx ordered. --APAP PRN. --CBC in AM, monitor temp. Chronic diarrhea 09/16/2011 06/07/2014 Labyrinthitis 02/05/2010 06/07/2014 Type 2 diabetes mellitus, uncontrolled 8 02/19/2015 Duodenitis without mention of hemorrhage 06/07/2014 documented as of this encounter (statuses as of 11/11/2021) [facility] History of Past illness Narrative* Problem Noted Date Resolved Date Localized swelling, mass and lump, neck 07/29/1906/05/2020 Family history of cerebrovascular accident (CVA) 01/26/2018 06/05/2020 Subsequent non-ST elevation (NSTEMI) myocardial infarction within 4 weeks of initial infarction 12/25/2014 06/05/2020 Elevated troponin I level 01/29/20132020 Overview: Last Assessment & Plan: --Troponin 0.13 at [facility] and [facility]. --Repeat troponin down to 0.08 --4th troponin pending tonight. --CP free. --Continue CAD management. --Telemetry. Leukocytosis 01/29/2013 06/05/2020 Overview: Last Assessment & Plan: --WBC 11.6 upon admission. --+Febrile 102.3 --Pt denies any fever, illness, exposure, cough --CXR 01/29 negative for any acute process. --UA, urine cx, and blood cx ordered. --APAP PRN. --CBC in AM, monitor temp. Chronic diarrhea 09/16/2011 06/07/2014 Labyrinthitis 02/05/2010 06/07/2014 Type 2 diabetes mellitus, uncontrolled 8 02/19/2015 Duodenitis without mention of hemorrhage 06/07/2014 documented as of this encounter (statuses as of 11/18/2021) [facility] History of Past illness Narrative* Problem Noted Date Resolved Date Localized swelling, mass and lump, neck 07/29/1906/05/2020 Family history of cerebrovascular accident (CVA) 01/26/2018 06/05/2020 Subsequent non-ST elevation (NSTEMI) myocardial infarction within 4 weeks of initial infarction 12/25/2014 06/05/2020 Elevated troponin I level 01/29/20132020 Overview: Last Assessment & Plan: --Troponin 0.13 at [facility] and [facility]. --Repeat troponin down to 0.08 --4th troponin pending tonight. --CP free. --Continue CAD management. --Telemetry. Leukocytosis 01/29/2013 06/05/2020 Overview: Last Assessment & Plan: --WBC 11.6 upon admission. --+Febrile 102.3 --Pt denies any fever, illness, exposure, cough --CXR 01/29 negative for any acute process. --UA, urine cx, and blood cx ordered. --APAP PRN. --CBC in AM, monitor temp. Chronic diarrhea 09/16/2011 06/07/2014 Labyrinthitis 02/05/2010 06/07/2014 Type 2 diabetes mellitus, uncontrolled 8 02/19/2015 Duodenitis without mention of hemorrhage 06/07/2014 documented as of this encounter (statuses as of 11/20/2021) [facility] History of Past illness Narrative* Problem Noted Date Resolved Date Localized swelling, mass and lump, neck 07/29/19 19 06/05/2020 Family history of cerebrovascular accident (CVA) 01/26/2018 06/05/2020 Subsequent non-ST elevation (NSTEMI) myocardial infarction within 4 weeks of initial infarction 12/25/2014 06/05/2020 Elevated troponin I level 01/29/20132020 Overview: Last Assessment & Plan: --Troponin 0.13 at [facility] and 0.14 [facility]. --Repeat troponin down to 0.08 --4th troponin pending tonight. --CP free. --Continue CAD management. --Telemetry. Leukocytosis 01/29/2013 06/05/2020 Overview: Last Assessment & Plan: --WBC 11.6 upon admission. --+Febrile 102.3 --Pt denies any fever, illness, exposure, cough --CXR 2 negative for any acute process. --UA, urine cx, and blood cx ordered. --APAP PRN. --CBC in AM, monitor temp. Chronic diarrhea 09/16/2011 06/07/2014 Labyrinthitis 02/05/2010 06/07/2014 Type 2 diabetes mellitus, uncontrolled 8 02/19/2015 Duodenitis without mention of hemorrhage 06/07/2014 documented as of this encounter (statuses as of 11/20/2021) [facility]05-01-2019 History of Past illness Narrative* Problem Noted Date Resolved Date Localized swelling, mass and lump, neck 07/29/1906/05/2020 Family history of cerebrovascular accident (CVA) 01/26/2018 06/05/2020 Subsequent non-ST elevation (NSTEMI) myocardial infarction within 4 weeks of initial infarction 12/25/2014 06/05/2020 Elevated troponin I level 01/29/20132020 Overview: Last Assessment & Plan: --Troponin 0.13 at [facility] and 0[facility]. --Repeat troponin down to 0.08 --4th troponin pending tonight. --CP free. --Continue CAD management. --Telemetry. Leukocytosis 01/29/2013 06/05/2020 Overview: Last Assessment & Plan: --WBC 11.6 upon admission. --+Febrile 102.3 --Pt denies any fever, illness, exposure, cough --CXR 01/29 negative for any acute process. --UA, urine cx, and blood cx ordered. --APAP PRN. --CBC in AM, monitor temp. Chronic diarrhea 09/16/2011 06/07/2014 Labyrinthitis 02/05/2010 06/07/2014 Type 2 diabetes mellitus, uncontrolled 8 02/19/2015 Duodenitis without mention of hemorrhage 06/07/2014 documented as of this encounter (statuses as of 11/20/2021) [facility]05-01[facility]2019 History of Past illness Narrative* Problem Noted Date Resolved Date Localized swelling, mass and lump, neck 07/29/1906/05/2020 Family history of cerebrovascular accident (CVA) 01/26/2018 06/05/2020 Subsequent non-ST elevation (NSTEMI) myocardial infarction within 4 weeks of initial infarction 12/25/2014 06/05/2020 Elevated troponin I level 01/29/20132020 Overview: Last Assessment & Plan: --Troponin 0.13 at [facility] and [facility]. --Repeat troponin down to 0.08 --4th troponin pending tonight. --CP free. --Continue CAD management. --Telemetry. Leukocytosis 01/29/2013 06/05/2020 Overview: Last Assessment & Plan: --WBC 11.6 upon admission. --+Febrile 102.3 --Pt denies any fever, illness, exposure, cough --CXR 01/29 negative for any acute process. --UA, urine cx, and blood cx ordered. --APAP PRN. --CBC in AM, monitor temp. Chronic diarrhea 09/16/2011 06/07/2014 Labyrinthitis 02/05/2010 06/07/2014 Type 2 diabetes mellitus, uncontrolled 8 02/19/2015 Duodenitis without mention of hemorrhage 06/07/2014 documented as of this encounter (statuses as of 11/21/2021) [facility]05[facility]2019 History of Past illness Narrative* Problem Noted Date Resolved Date Localized swelling, mass and lump, neck 07/29/19 19 06/05/2020 Family history of cerebrovascular accident (CVA) 01/26/2018 06/05/2020 Subsequent non-ST elevation (NSTEMI) myocardial infarction within 4 weeks of initial infarction 12/25/2014 06/05/2020 Elevated troponin I level 01/29/20132020 Overview: Last Assessment & Plan: --Troponin 0.13 at [facility] and [facility]. --Repeat troponin down to 0.08 --4th troponin pending tonight. --CP free. --Continue CAD management. --Telemetry. Leukocytosis 01/29/2013 06/05/2020 Overview: Last Assessment & Plan: --WBC 11.6 upon admission. --+Febrile 102.3 --Pt denies any fever, illness, exposure, cough --CXR 11/2 negative for any acute process. --UA, urine cx, and blood cx ordered. --APAP PRN. --CBC in AM, monitor temp. Chronic diarrhea 09/16/2011 06/07/2014 Labyrinthitis 02/05/2010 06/07/2014 Type 2 diabetes mellitus, uncontrolled 8 02/19/2015 Duodenitis without mention of hemorrhage 06/07/2014 documented as of this encounter (statuses as of 11/25/2021) [facility]2019 History of Past illness Narrative* Problem Noted Date Resolved Date Localized swelling, mass and lump, neck 07/29/1906/05/2020 Family history of cerebrovascular accident (CVA) 01/26/2018 06/05/2020 Subsequent non-ST elevation (NSTEMI) myocardial infarction within 4 weeks of initial infarction 12/25/2014 06/05/2020 Elevated troponin I level 01/29/20132020 Overview: Last Assessment & Plan: --Troponin 0.13 at [facility] and [facility]. --Repeat troponin down to 0.08 --4th troponin pending tonight. --CP free. --Continue CAD management. --Telemetry. Leukocytosis 01/29/2013 06/05/2020 Overview: Last Assessment & Plan: --WBC 11.6 upon admission. --+Febrile 102.3 --Pt denies any fever, illness, exposure, cough --CXR 11/2 negative for any acute process. --UA, urine cx, and blood cx ordered. --APAP PRN. --CBC in AM, monitor temp. Chronic diarrhea 09/16/2011 06/07/2014 Labyrinthitis 02/05/2010 06/07/2014 Type 2 diabetes mellitus, uncontrolled 8 02/19/2015 Duodenitis without mention of hemorrhage 06/07/2014 documented as of this encounter (statuses as of 11/29/2021) [facility]2019 History of Past illness Narrative* Problem Noted Date Resolved Date Localized swelling, mass and lump, neck 07/29/19 19 06/05/2020 Family history of cerebrovascular accident (CVA) 01/26/2018 06/05/2020 Subsequent non-ST elevation (NSTEMI) myocardial infarction within 4 weeks of initial infarction 12/25/2014 06/05/2020 Elevated troponin I level 01/29/20132020 Overview: Last Assessment & Plan: --Troponin 0.13 at [facility] and [facility]. --Repeat troponin down to 0.08 --4th troponin pending tonight. --CP free. --Continue CAD management. --Telemetry. Leukocytosis 01/29/2013 06/05/2020 Overview: Last Assessment & Plan: --WBC 11.6 upon admission. --+Febrile 102.3 --Pt denies any fever, illness, exposure, cough --CXR 01/29 negative for any acute process. --UA, urine cx, and blood cx ordered. --APAP PRN. --CBC in AM, monitor temp. Chronic diarrhea 09/16/2011 06/07/2014 Labyrinthitis 02/05/2010 06/07/2014 Type 2 diabetes mellitus, uncontrolled 8 02/19/2015 Duodenitis without mention of hemorrhage 06/07/2014 documented as of this encounter (statuses as of 11/29/2021) [facility]2019 History of Past illness Narrative* Problem Noted Date Resolved Date Localized swelling, mass and lump, neck 07/29/19 19 06/05/2020 Family history of cerebrovascular accident (CVA) 01/26/2018 06/05/2020 Subsequent non-ST elevation (NSTEMI) myocardial infarction within 4 weeks of initial infarction 12/25/2014 06/05/2020 Elevated troponin I level 01/29/20132020 Overview: Last Assessment & Plan: --Troponin 0.13 at [facility] and [facility]. --Repeat troponin down to 0.08 --4th troponin pending tonight. --CP free. --Continue CAD management. --Telemetry. Leukocytosis 01/29/2013 06/05/2020 Overview: Last Assessment & Plan: --WBC 11.6 upon admission. --+Febrile 102.3 --Pt denies any fever, illness, exposure, cough --CXR 11/2 negative for any acute process. --UA, urine cx, and blood cx ordered. --APAP PRN. --CBC in AM, monitor temp. Chronic diarrhea 09/16/2011 06/07/2014 Labyrinthitis 02/05/2010 06/07/2014 Type 2 diabetes mellitus, uncontrolled 8 02/19/2015 Duodenitis without mention of hemorrhage 06/07/2014 documented as of this encounter (statuses as of 11/29/2021) [facility]05[facility]2019 History of Past illness Narrative* Problem Noted Date Resolved Date Localized swelling, mass and lump, neck 07/29/19 19 06/05/2020 Family history of cerebrovascular accident (CVA) 01/26/2018 06/05/2020 Subsequent non-ST elevation (NSTEMI) myocardial infarction within 4 weeks of initial infarction 12/25/2014 06/05/2020 Elevated troponin I level 01/29/20132020 Overview: Last Assessment & Plan: --Troponin 0.13 at [facility] and [facility]. --Repeat troponin down to 0.08 --4th troponin pending tonight. --CP free. --Continue CAD management. --Telemetry. Leukocytosis 01/29/2013 06/05/2020 Overview: Last Assessment & Plan: --WBC 11.6 upon admission. --+Febrile 102.3 --Pt denies any fever, illness, exposure, cough --CXR 11/2 negative for any acute process. --UA, urine cx, and blood cx ordered. --APAP PRN. --CBC in AM, monitor temp. Chronic diarrhea 09/16/2011 06/07/2014 Labyrinthitis 02/05/2010 06/07/2014 Type 2 diabetes mellitus, uncontrolled 8 02/19/2015 Duodenitis without mention of hemorrhage 06/07/2014 documented as of this encounter (statuses as of 12/03/2021) [facility]2019 History of Past illness Narrative* Problem Noted Date Resolved Date Localized swelling, mass and lump, neck 07/29/19 19 06/05/2020 Family history of cerebrovascular accident (CVA) 01/26/2018 06/05/2020 Subsequent non-ST elevation (NSTEMI) myocardial infarction within 4 weeks of initial infarction 12/25/2014 06/05/2020 Elevated troponin I level 01/29/20132020 Overview: Last Assessment & Plan: --Troponin 0.13 at [facility] and [facility]. --Repeat troponin down to 0.08 --4th troponin pending tonight. --CP free. --Continue CAD management. --Telemetry. Leukocytosis 01/29/2013 06/05/2020 Overview: Last Assessment & Plan: --WBC 11.6 upon admission. --+Febrile 102.3 --Pt denies any fever, illness, exposure, cough --CXR 01/29 negative for any acute process. --UA, urine cx, and blood cx ordered. --APAP PRN. --CBC in AM, monitor temp. Chronic diarrhea 09/16/2011 06/07/2014 Labyrinthitis 02/05/2010 06/07/2014 Type 2 diabetes mellitus, uncontrolled 8 02/19/2015 Duodenitis without mention of hemorrhage 06/07/2014 documented as of this encounter (statuses as of 12/04/2021) [facility] History of Past illness Narrative* Problem Noted Date Resolved Date Localized swelling, mass and lump, neck 07/29/19 19 06/05/2020 Family history of cerebrovascular accident (CVA) 01/26/2018 06/05/2020 Subsequent non-ST elevation (NSTEMI) myocardial infarction within 4 weeks of initial infarction 12/25/2014 06/05/2020 Elevated troponin I level 01/29/20132020 Overview: Last Assessment & Plan: --Troponin 0.13 at [facility] and [facility]. --Repeat troponin down to 0.08 --4th troponin pending tonight. --CP free. --Continue CAD management. --Telemetry. Leukocytosis 01/29/2013 06/05/2020 Overview: Last Assessment & Plan: --WBC 11.6 upon admission. --+Febrile 102.3 --Pt denies any fever, illness, exposure, cough --CXR /2 negative for any acute process. --UA, urine cx, and blood cx ordered. --APAP PRN. --CBC in AM, monitor temp. Chronic diarrhea 09/16/2011 06/07/2014 Labyrinthitis 02/05/2010 06/07/2014 Type 2 diabetes mellitus, uncontrolled 8 02/19/2015 Duodenitis without mention of hemorrhage 06/07/2014 documented as of this encounter (statuses as of 12/12/2021) [facility]2019 History of Past illness Narrative* Problem Noted Date Resolved Date Localized swelling, mass and lump, neck 07/29/19 19 06/05/2020 Family history of cerebrovascular accident (CVA) 01/26/2018 06/05/2020 Subsequent non-ST elevation (NSTEMI) myocardial infarction within 4 weeks of initial infarction 12/25/2014 06/05/2020 Elevated troponin I level 01/29/20132020 Overview: Last Assessment & Plan: --Troponin 0.13 at [facility] and [facility]. --Repeat troponin down to 0.08 --4th troponin pending tonight. --CP free. --Continue CAD management. --Telemetry. Leukocytosis 01/29/2013 06/05/2020 Overview: Last Assessment & Plan: --WBC 11.6 upon admission. --+Febrile 102.3 --Pt denies any fever, illness, exposure, cough --CXR 11/2 negative for any acute process. --UA, urine cx, and blood cx ordered. --APAP PRN. --CBC in AM, monitor temp. Chronic diarrhea 09/16/2011 06/07/2014 Labyrinthitis 02/05/2010 06/07/2014 Type 2 diabetes mellitus, uncontrolled 8 02/19/2015 Duodenitis without mention of hemorrhage 06/07/2014 documented as of this encounter (statuses as of 12/18/2021) [facility]2019 History of Past illness Narrative* Problem Noted Date Resolved Date Localized swelling, mass and lump, neck 07/29/1906/05/2020 Family history of cerebrovascular accident (CVA) 01/26/2018 06/05/2020 Subsequent non-ST elevation (NSTEMI) myocardial infarction within 4 weeks of initial infarction 12/25/2014 06/05/2020 Elevated troponin I level 01/29/20132020 Overview: Last Assessment & Plan: --Troponin 0.13 at [facility] and [facility]. --Repeat troponin down to 0.08 --4th troponin pending tonight. --CP free. --Continue CAD management. --Telemetry. Leukocytosis 01/29/2013 06/05/2020 Overview: Last Assessment & Plan: --WBC 11.6 upon admission. --+Febrile 102.3 --Pt denies any fever, illness, exposure, cough --CXR 01/29 negative for any acute process. --UA, urine cx, and blood cx ordered. --APAP PRN. --CBC in AM, monitor temp. Chronic diarrhea 09/16/2011 06/07/2014 Labyrinthitis 02/05/2010 06/07/2014 Type 2 diabetes mellitus, uncontrolled 8 02/19/2015 Duodenitis without mention of hemorrhage 06/07/2014 documented as of this encounter (statuses as of 12/25/2021) [facility] History of Past illness Narrative* Problem Noted Date Resolved Date Localized swelling, mass and lump, neck 07/29/1906/05/2020 Family history of cerebrovascular accident (CVA) 01/26/2018 06/05/2020 Subsequent non-ST elevation (NSTEMI) myocardial infarction within 4 weeks of initial infarction 12/25/2014 06/05/2020 Elevated troponin I level 01/29/20132020 Overview: Last Assessment & Plan: --Troponin 0.13 at [facility] and [facility]. --Repeat troponin down to 0.08 --4th troponin pending tonight. --CP free. --Continue CAD management. --Telemetry. Leukocytosis 01/29/2013 06/05/2020 Overview: Last Assessment & Plan: --WBC 11.6 upon admission. --+Febrile 102.3 --Pt denies any fever, illness, exposure, cough --CXR 01/29 negative for any acute process. --UA, urine cx, and blood cx ordered. --APAP PRN. --CBC in AM, monitor temp. Chronic diarrhea 09/16/2011 06/07/2014 Labyrinthitis 02/05/2010 06/07/2014 Type 2 diabetes mellitus, uncontrolled 8 02/19/2015 Duodenitis without mention of hemorrhage 06/07/2014 documented as of this encounter (statuses as of 12/26/2021) [facility] History of Past illness Narrative* Problem Noted Date Resolved Date Localized swelling, mass and lump, neck 07/29/19 19 06/05/2020 Family history of cerebrovascular accident (CVA) 01/26/2018 06/05/2020 Subsequent non-ST elevation (NSTEMI) myocardial infarction within 4 weeks of initial infarction 12/25/2014 06/05/2020 Elevated troponin I level 01/29/20132020 Overview: Last Assessment & Plan: --Troponin 0.13 at [facility] and [facility]. --Repeat troponin down to 0.08 --4th troponin pending tonight. --CP free. --Continue CAD management. --Telemetry. Leukocytosis 01/29/2013 06/05/2020 Overview: Last Assessment & Plan: --WBC 11.6 upon admission. --+Febrile 102.3 --Pt denies any fever, illness, exposure, cough --CXR 11/2 negative for any acute process. --UA, urine cx, and blood cx ordered. --APAP PRN. --CBC in AM, monitor temp. Chronic diarrhea 09/16/2011 06/07/2014 Labyrinthitis 02/05/2010 06/07/2014 Type 2 diabetes mellitus, uncontrolled 8 02/19/2015 Duodenitis without mention of hemorrhage 06/07/2014 documented as of this encounter (statuses as of 01/03/2022) [facility]2019 History of Past illness Narrative* Problem Noted Date Resolved Date Localized swelling, mass and lump, neck 07/29/19 19 06/05/2020 Family history of cerebrovascular accident (CVA) 01/26/2018 06/05/2020 Subsequent non-ST elevation (NSTEMI) myocardial infarction within 4 weeks of initial infarction 12/25/2014 06/05/2020 Elevated troponin I level 01/29/20132020 Overview: Last Assessment & Plan: --Troponin 0.13 at [facility] and [facility]. --Repeat troponin down to 0.08 --4th troponin pending tonight. --CP free. --Continue CAD management. --Telemetry. Leukocytosis 01/29/2013 06/05/2020 Overview: Last Assessment & Plan: --WBC 11.6 upon admission. --+Febrile 102.3 --Pt denies any fever, illness, exposure, cough --CXR 11/2 negative for any acute process. --UA, urine cx, and blood cx ordered. --APAP PRN. --CBC in AM, monitor temp. Chronic diarrhea 09/16/2011 06/07/2014 Labyrinthitis 02/05/2010 06/07/2014 Type 2 diabetes mellitus, uncontrolled 8 02/19/2015 Duodenitis without mention of hemorrhage 06/07/2014 documented as of this encounter (statuses as of 01/14/2022) [facility]2019 History of Past illness Narrative* Problem Noted Date Resolved Date Localized swelling, mass and lump, neck 07/29/19 19 06/05/2020 Family history of cerebrovascular accident (CVA) 01/26/2018 06/05/2020 Subsequent non-ST elevation (NSTEMI) myocardial infarction within 4 weeks of initial infarction 12/25/2014 06/05/2020 Elevated troponin I level 01/29/20132020 Overview: Last Assessment & Plan: --Troponin 0.13 at [facility] and [facility]. --Repeat troponin down to 0.08 --4th troponin pending tonight. --CP free. --Continue CAD management. --Telemetry. Leukocytosis 01/29/2013 06/05/2020 Overview: Last Assessment & Plan: --WBC 11.6 upon admission. --+Febrile 102.3 --Pt denies any fever, illness, exposure, cough --CXR 01/29 negative for any acute process. --UA, urine cx, and blood cx ordered. --APAP PRN. --CBC in AM, monitor temp. Chronic diarrhea 09/16/2011 06/07/2014 Labyrinthitis 02/05/2010 06/07/2014 Type 2 diabetes mellitus, uncontrolled 8 02/19/2015 Duodenitis without mention of hemorrhage 06/07/2014 documented as of this encounter (statuses as of 01/18/2022) [facility] History of Past illness Narrative* Problem Noted Date Resolved Date Localized swelling, mass and lump, neck 07/29/19 19 06/05/2020 Family history of cerebrovascular accident (CVA) 01/26/2018 06/05/2020 Subsequent non-ST elevation (NSTEMI) myocardial infarction within 4 weeks of initial infarction 12/25/2014 06/05/2020 Elevated troponin I level 01/29/20132020 Overview: Last Assessment & Plan: --Troponin 0.13 at [facility] and [facility]. --Repeat troponin down to 0.08 --4th troponin pending tonight. --CP free. --Continue CAD management. --Telemetry. Leukocytosis 01/29/2013 06/05/2020 Overview: Last Assessment & Plan: --WBC 11.6 upon admission. --+Febrile 102.3 --Pt denies any fever, illness, exposure, cough --CXR 11/2 negative for any acute process. --UA, urine cx, and blood cx ordered. --APAP PRN. --CBC in AM, monitor temp. Chronic diarrhea 09/16/2011 06/07/2014 Labyrinthitis 02/05/2010 06/07/2014 Type 2 diabetes mellitus, uncontrolled 8 02/19/2015 Duodenitis without mention of hemorrhage 06/07/2014 documented as of this encounter (statuses as of 01/21/2022) [facility] History of Past illness Narrative* Problem Noted Date Resolved Date Localized swelling, mass and lump, neck 07/29/1906/05/2020 Family history of cerebrovascular accident (CVA) 01/26/2018 06/05/2020 Subsequent non-ST elevation (NSTEMI) myocardial infarction within 4 weeks of initial infarction 12/25/2014 06/05/2020 Elevated troponin I level 01/29/20132020 Overview: Last Assessment & Plan: --Troponin 0.13 at [facility] and [facility]. --Repeat troponin down to 0.08 --4th troponin pending tonight. --CP free. --Continue CAD management. --Telemetry. Leukocytosis 01/29/2013 06/05/2020 Overview: Last Assessment & Plan: --WBC 11.6 upon admission. --+Febrile 102.3 --Pt denies any fever, illness, exposure, cough --CXR 11/2 negative for any acute process. --UA, urine cx, and blood cx ordered. --APAP PRN. --CBC in AM, monitor temp. Chronic diarrhea 09/16/2011 06/07/2014 Labyrinthitis 02/05/2010 06/07/2014 Type 2 diabetes mellitus, uncontrolled 8 02/19/2015 Duodenitis without mention of hemorrhage 06/07/2014 documented as of this encounter (statuses as of 01/23/2022) [facility] History of Past illness Narrative* Problem Noted Date Resolved Date Localized swelling, mass and lump, neck 07/29/19 19 06/05/2020 Family history of cerebrovascular accident (CVA) 01/26/2018 06/05/2020 Subsequent non-ST elevation (NSTEMI) myocardial infarction within 4 weeks of initial infarction 12/25/2014 06/05/2020 Elevated troponin I level 01/29/20132020 Overview: Last Assessment & Plan: --Troponin 0.13 at [facility] and [facility]. --Repeat troponin down to 0.08 --4th troponin pending tonight. --CP free. --Continue CAD management. --Telemetry. Leukocytosis 01/29/2013 06/05/2020 Overview: Last Assessment & Plan: --WBC 11.6 upon admission. --+Febrile 102.3 --Pt denies any fever, illness, exposure, cough --CXR 01/29 negative for any acute process. --UA, urine cx, and blood cx ordered. --APAP PRN. --CBC in AM, monitor temp. Chronic diarrhea 09/16/2011 06/07/2014 Labyrinthitis 02/05/2010 06/07/2014 Type 2 diabetes mellitus, uncontrolled 8 02/19/2015 Duodenitis without mention of hemorrhage 06/07/2014 documented as of this encounter (statuses as of 01/23/2022) [facility] History of Past illness Narrative* Problem Noted Date Resolved Date Localized swelling, mass and lump, neck 07/29/1906/05/2020 Family history of cerebrovascular accident (CVA) 01/26/2018 06/05/2020 Subsequent non-ST elevation (NSTEMI) myocardial infarction within 4 weeks of initial infarction 12/25/2014 06/05/2020 Elevated troponin I level 01/29/20132020 Overview: Last Assessment & Plan: --Troponin 0.13 at [facility] and [facility]. --Repeat troponin down to 0.08 --4th troponin pending tonight. --CP free. --Continue CAD management. --Telemetry. Leukocytosis 01/29/2013 06/05/2020 Overview: Last Assessment & Plan: --WBC 11.6 upon admission. --+Febrile 102.3 --Pt denies any fever, illness, exposure, cough --CXR 11/2 negative for any acute process. --UA, urine cx, and blood cx ordered. --APAP PRN. --CBC in AM, monitor temp. Chronic diarrhea 09/16/2011 06/07/2014 Labyrinthitis 02/05/2010 06/07/2014 Type 2 diabetes mellitus, uncontrolled 8 02/19/2015 Duodenitis without mention of hemorrhage 06/07/2014 documented as of this encounter (statuses as of 01/24/2022) [facility] History of Past illness Narrative* Problem Noted Date Resolved Date Localized swelling, mass and lump, neck 07/29/19 19 06/05/2020 Family history of cerebrovascular accident (CVA) 01/26/2018 06/05/2020 Subsequent non-ST elevation (NSTEMI) myocardial infarction within 4 weeks of initial infarction 12/25/2014 06/05/2020 Elevated troponin I level 01/29/20132020 Overview: Last Assessment & Plan: --Troponin 0.13 at [facility] and [facility]. --Repeat troponin down to 0.08 --4th troponin pending tonight. --CP free. --Continue CAD management. --Telemetry. Leukocytosis 01/29/2013 06/05/2020 Overview: Last Assessment & Plan: --WBC 11.6 upon admission. --+Febrile 102.3 --Pt denies any fever, illness, exposure, cough --CXR 11/2 negative for any acute process. --UA, urine cx, and blood cx ordered. --APAP PRN. --CBC in AM, monitor temp. Chronic diarrhea 09/16/2011 06/07/2014 Labyrinthitis 02/05/2010 06/07/2014 Type 2 diabetes mellitus, uncontrolled 8 02/19/2015 Duodenitis without mention of hemorrhage 06/07/2014 documented as of this encounter (statuses as of 01/27/2022) [facility] History of Past illness Narrative* Problem Noted Date Resolved Date Localized swelling, mass and lump, neck 07/29/19 19 06/05/2020 Family history of cerebrovascular accident (CVA) 01/26/2018 06/05/2020 Subsequent non-ST elevation (NSTEMI) myocardial infarction within 4 weeks of initial infarction 12/25/2014 06/05/2020 Elevated troponin I level 01/29/20132020 Overview: Last Assessment & Plan: --Troponin 0.13 at [facility] and [facility]. --Repeat troponin down to 0.08 --4th troponin pending tonight. --CP free. --Continue CAD management. --Telemetry. Leukocytosis 01/29/2013 06/05/2020 Overview: Last Assessment & Plan: --WBC 11.6 upon admission. --+Febrile 102.3 --Pt denies any fever, illness, exposure, cough --CXR 01/29 negative for any acute process. --UA, urine cx, and blood cx ordered. --APAP PRN. --CBC in AM, monitor temp. Chronic diarrhea 09/16/2011 06/07/2014 Labyrinthitis 02/05/2010 06/07/2014 Type 2 diabetes mellitus, uncontrolled 8 02/19/2015 Duodenitis without mention of hemorrhage 06/07/2014 documented as of this encounter (statuses as of 01/27/2022) [facility]05-01-2019 History of Past illness Narrative* Problem Noted Date Resolved Date Localized swelling, mass and lump, neck 07/29/19 19 06/05/2020 Family history of cerebrovascular accident (CVA) 01/26/2018 06/05/2020 Subsequent non-ST elevation (NSTEMI) myocardial infarction within 4 weeks of initial infarction 12/25/2014 06/05/2020 Elevated troponin I level 01/29/20132020 Overview: Last Assessment & Plan: --Troponin 0.13 at [facility] and 0.14 in [facility]. --Repeat troponin down to 0.08 --4th troponin pending tonight. --CP free. --Continue CAD management. --Telemetry. Leukocytosis 01/29/2013 06/05/2020 Overview: Last Assessment & Plan: --WBC 11.6 upon admission. --+Febrile 102.3 --Pt denies any fever, illness, exposure, cough --CXR 01/29 negative for any acute process. --UA, urine cx, and blood cx ordered. --APAP PRN. --CBC in AM, monitor temp. Chronic diarrhea 09/16/2011 06/07/2014 Labyrinthitis 02/05/2010 06/07/2014 Type 2 diabetes mellitus, uncontrolled 8 02/19/2015 Duodenitis without mention of hemorrhage 06/07/2014 documented as of this encounter (statuses as of 01/29/2022) [facility]05-01-2019 History of Past illness Narrative* Problem Noted Date Resolved Date Localized swelling, mass and lump, neck 07/29/19 19 06/05/2020 Family history of cerebrovascular accident (CVA) 01/26/2018 06/05/2020 Subsequent non-ST elevation (NSTEMI) myocardial infarction within 4 weeks of initial infarction 12/25/2014 06/05/2020 Elevated troponin I level 01/29/20132020 Overview: Last Assessment & Plan: --Troponin 0.13 at [facility] and 0.[facility]. --Repeat troponin down to 0.08 --4th troponin pending tonight. --CP free. --Continue CAD management. --Telemetry. Leukocytosis 01/29/2013 06/05/2020 Overview: Last Assessment & Plan: --WBC 11.6 upon admission. --+Febrile 102.3 --Pt denies any fever, illness, exposure, cough --CXR 11/2 negative for any acute process. --UA, urine cx, and blood cx ordered. --APAP PRN. --CBC in AM, monitor temp. Chronic diarrhea 09/16/2011 06/07/2014 Labyrinthitis 02/05/2010 06/07/2014 Type 2 diabetes mellitus, uncontrolled 8 02/19/2015 Duodenitis without mention of hemorrhage 06/07/2014 documented as of this encounter (statuses as of 01/30/2022) [facility]05-01-2019 History of Past illness Narrative* Problem Noted Date Resolved Date Localized swelling, mass and lump, neck 07/29/1906/05/2020 Family history of cerebrovascular accident (CVA) 01/26/2018 06/05/2020 Subsequent non-ST elevation (NSTEMI) myocardial infarction within 4 weeks of initial infarction 12/25/2014 06/05/2020 Elevated troponin I level 01/29/20132020 Overview: Last Assessment & Plan: --Troponin 0.13 at [facility] and 0[facility]. --Repeat troponin down to 0.08 --4th troponin pending tonight. --CP free. --Continue CAD management. --Telemetry. Leukocytosis 01/29/2013 06/05/2020 Overview: Last Assessment & Plan: --WBC 11.6 upon admission. --+Febrile 102.3 --Pt denies any fever, illness, exposure, cough --CXR 11/2 negative for any acute process. --UA, urine cx, and blood cx ordered. --APAP PRN. --CBC in AM, monitor temp. Chronic diarrhea 09/16/2011 06/07/2014 Labyrinthitis 02/05/2010 06/07/2014 Type 2 diabetes mellitus, uncontrolled 8 02/19/2015 Duodenitis without mention of hemorrhage 06/07/2014 documented as of this encounter (statuses as of 02/03/2022) [facility]05-01[facility]2019 History of Past illness Narrative* Problem Noted Date Resolved Date Localized swelling, mass and lump, neck 07/29/19 19 06/05/2020 Family history of cerebrovascular accident (CVA) 01/26/2018 06/05/2020 Subsequent non-ST elevation (NSTEMI) myocardial infarction within 4 weeks of initial infarction 12/25/2014 06/05/2020 Elevated troponin I level 01/29/20132020 Overview: Last Assessment & Plan: --Troponin 0.13 at [facility] and 0[facility]. --Repeat troponin down to 0.08 --4th troponin pending tonight. --CP free. --Continue CAD management. --Telemetry. Leukocytosis 01/29/2013 06/05/2020 Overview: Last Assessment & Plan: --WBC 11.6 upon admission. --+Febrile 102.3 --Pt denies any fever, illness, exposure, cough --CXR 01/29 negative for any acute process. --UA, urine cx, and blood cx ordered. --APAP PRN. --CBC in AM, monitor temp. Chronic diarrhea 09/16/2011 06/07/2014 Labyrinthitis 02/05/2010 06/07/2014 Type 2 diabetes mellitus, uncontrolled 8 02/19/2015 Duodenitis without mention of hemorrhage 06/07/2014 documented as of this encounter (statuses as of 02/07/2022) [facility]05-01-2019 History of Past illness Narrative* Problem Noted Date Resolved Date Localized swelling, mass and lump, neck 07/29/19 19 06/05/2020 Family history of cerebrovascular accident (CVA) 01/26/2018 06/05/2020 Subsequent non-ST elevation (NSTEMI) myocardial infarction within 4 weeks of initial infarction 12/25/2014 06/05/2020 Elevated troponin I level 01/29/20132020 Overview: Last Assessment & Plan: --Troponin 0.13 at [facility] and [facility]. --Repeat troponin down to 0.08 --4th troponin pending tonight. --CP free. --Continue CAD management. --Telemetry. Leukocytosis 01/29/2013 06/05/2020 Overview: Last Assessment & Plan: --WBC 11.6 upon admission. --+Febrile 102.3 --Pt denies any fever, illness, exposure, cough --CXR 11/2 negative for any acute process. --UA, urine cx, and blood cx ordered. --APAP PRN. --CBC in AM, monitor temp. Chronic diarrhea 09/16/2011 06/07/2014 Labyrinthitis 02/05/2010 06/07/2014 Type 2 diabetes mellitus, uncontrolled 8 02/19/2015 Duodenitis without mention of hemorrhage 06/07/2014 documented as of this encounter (statuses as of 02/12/2022) [facility]05-01-2019 History of Past illness Narrative* Problem Noted Date Resolved Date Localized swelling, mass and lump, neck 07/29/19 19 06/05/2020 Family history of cerebrovascular accident (CVA) 01/26/2018 06/05/2020 Subsequent non-ST elevation (NSTEMI) myocardial infarction within 4 weeks of initial infarction 12/25/2014 06/05/2020 Elevated troponin I level 01/29/20132020 Overview: Last Assessment & Plan: --Troponin 0.13 at [facility] and [facility]. --Repeat troponin down to 0.08 --4th troponin pending tonight. --CP free. --Continue CAD management. --Telemetry. Leukocytosis 01/29/2013 06/05/2020 Overview: Last Assessment & Plan: --WBC 11.6 upon admission. --+Febrile 102.3 --Pt denies any fever, illness, exposure, cough --CXR 11/2 negative for any acute process. --UA, urine cx, and blood cx ordered. --APAP PRN. --CBC in AM, monitor temp. Chronic diarrhea 09/16/2011 06/07/2014 Labyrinthitis 02/05/2010 06/07/2014 Type 2 diabetes mellitus, uncontrolled 8 02/19/2015 Duodenitis without mention of hemorrhage 06/07/2014 documented as of this encounter (statuses as of 02/12/2022) [facility]05-[facility]2019 History of Past illness Narrative* Problem Noted Date Resolved Date Localized swelling, mass and lump, neck 07/29/1906/05/2020 Family history of cerebrovascular accident (CVA) 01/26/2018 06/05/2020 Subsequent non-ST elevation (NSTEMI) myocardial infarction within 4 weeks of initial infarction 12/25/2014 06/05/2020 Elevated troponin I level 01/29/20132020 Overview: Last Assessment & Plan: --Troponin 0.13 at [facility] and [facility]. --Repeat troponin down to 0.08 --4th troponin pending tonight. --CP free. --Continue CAD management. --Telemetry. Leukocytosis 01/29/2013 06/05/2020 Overview: Last Assessment & Plan: --WBC 11.6 upon admission. --+Febrile 102.3 --Pt denies any fever, illness, exposure, cough --CXR 01/29 negative for any acute process. --UA, urine cx, and blood cx ordered. --APAP PRN. --CBC in AM, monitor temp. Chronic diarrhea 09/16/2011 06/07/2014 Labyrinthitis 02/05/2010 06/07/2014 Type 2 diabetes mellitus, uncontrolled 8 02/19/2015 Duodenitis without mention of hemorrhage 06/07/2014 documented as of this encounter (statuses as of 02/12/2022) [facility]05-[facility]2019 History of Past illness Narrative* Problem Noted Date Resolved Date Localized swelling, mass and lump, neck 07/29/1906/05/2020 Family history of cerebrovascular accident (CVA) 01/26/2018 06/05/2020 Subsequent non-ST elevation (NSTEMI) myocardial infarction within 4 weeks of initial infarction 12/25/2014 06/05/2020 Elevated troponin I level 01/29/20132020 Overview: Last Assessment & Plan: --Troponin 0.13 at [facility] and [facility]. --Repeat troponin down to 0.08 --4th troponin pending tonight. --CP free. --Continue CAD management. --Telemetry. Leukocytosis 01/29/2013 06/05/2020 Overview: Last Assessment & Plan: --WBC 11.6 upon admission. --+Febrile 102.3 --Pt denies any fever, illness, exposure, cough --CXR 11/2 negative for any acute process. --UA, urine cx, and blood cx ordered. --APAP PRN. --CBC in AM, monitor temp. Chronic diarrhea 09/16/2011 06/07/2014 Labyrinthitis 02/05/2010 06/07/2014 Type 2 diabetes mellitus, uncontrolled 8 02/19/2015 Duodenitis without mention of hemorrhage 06/07/2014 documented as of this encounter (statuses as of 03/05/2022) [facility]05[facility]2019 History of Past illness Narrative* Problem Noted Date Resolved Date Localized swelling, mass and lump, neck 07/29/19 19 06/05/2020 Family history of cerebrovascular accident (CVA) 01/26/2018 06/05/2020 Subsequent non-ST elevation (NSTEMI) myocardial infarction within 4 weeks of initial infarction 12/25/2014 06/05/2020 Elevated troponin I level 01/29/20132020 Overview: Last Assessment & Plan: --Troponin 0.13 at [facility] and [facility]. --Repeat troponin down to 0.08 --4th troponin pending tonight. --CP free. --Continue CAD management. --Telemetry. Leukocytosis 01/29/2013 06/05/2020 Overview: Last Assessment & Plan: --WBC 11.6 upon admission. --+Febrile 102.3 --Pt denies any fever, illness, exposure, cough --CXR 11/2 negative for any acute process. --UA, urine cx, and blood cx ordered. --APAP PRN. --CBC in AM, monitor temp. Chronic diarrhea 09/16/2011 06/07/2014 Labyrinthitis 02/05/2010 06/07/2014 Type 2 diabetes mellitus, uncontrolled 8 02/19/2015 Duodenitis without mention of hemorrhage 06/07/2014 documented as of this encounter (statuses as of 03/05/2022) [facility]05[facility]2019 History of Past illness Narrative* Problem Noted Date Resolved Date Localized swelling, mass and lump, neck 07/29/1906/05/2020 Family history of cerebrovascular accident (CVA) 01/26/2018 06/05/2020 Subsequent non-ST elevation (NSTEMI) myocardial infarction within 4 weeks of initial infarction 12/25/2014 06/05/2020 Elevated troponin I level 01/29/20132020 Overview: Last Assessment & Plan: --Troponin 0.13 at [facility] and [facility]. --Repeat troponin down to 0.08 --4th troponin pending tonight. --CP free. --Continue CAD management. --Telemetry. Leukocytosis 01/29/2013 06/05/2020 Overview: Last Assessment & Plan: --WBC 11.6 upon admission. --+Febrile 102.3 --Pt denies any fever, illness, exposure, cough --CXR 01/29 negative for any acute process. --UA, urine cx, and blood cx ordered. --APAP PRN. --CBC in AM, monitor temp. Chronic diarrhea 09/16/2011 06/07/2014 Labyrinthitis 02/05/2010 06/07/2014 Type 2 diabetes mellitus, uncontrolled 8 02/19/2015 Duodenitis without mention of hemorrhage 06/07/2014 documented as of this encounter (statuses as of 03/05/2022) [facility]05[facility]2019 History of Past illness Narrative* Problem Noted Date Resolved Date Localized swelling, mass and lump, neck 07/29/19 19 06/05/2020 Family history of cerebrovascular accident (CVA) 01/26/2018 06/05/2020 Subsequent non-ST elevation (NSTEMI) myocardial infarction within 4 weeks of initial infarction 12/25/2014 06/05/2020 Elevated troponin I level 01/29/20132020 Overview: Last Assessment & Plan: --Troponin 0.13 at [facility] and [facility]. --Repeat troponin down to 0.08 --4th troponin pending tonight. --CP free. --Continue CAD management. --Telemetry. Leukocytosis 01/29/2013 06/05/2020 Overview: Last Assessment & Plan: --WBC 11.6 upon admission. --+Febrile 102.3 --Pt denies any fever, illness, exposure, cough --CXR 01/29 negative for any acute process. --UA, urine cx, and blood cx ordered. --APAP PRN. --CBC in AM, monitor temp. Chronic diarrhea 09/16/2011 06/07/2014 Labyrinthitis 02/05/2010 06/07/2014 Type 2 diabetes mellitus, uncontrolled 8 02/19/2015 Duodenitis without mention of hemorrhage 06/07/2014 documented as of this encounter (statuses as of 03/06/2022) [facility]05[facility]2019 History of Past illness Narrative* Problem Noted Date Resolved Date Localized swelling, mass and lump, neck 07/29/19 19 06/05/2020 Family history of cerebrovascular accident (CVA) 01/26/2018 06/05/2020 Subsequent non-ST elevation (NSTEMI) myocardial infarction within 4 weeks of initial infarction 12/25/2014 06/05/2020 Elevated troponin I level 01/29/20132020 Overview: Last Assessment & Plan: --Troponin 0.13 at [facility] and [facility]. --Repeat troponin down to 0.08 --4th troponin pending tonight. --CP free. --Continue CAD management. --Telemetry. Leukocytosis 01/29/2013 06/05/2020 Overview: Last Assessment & Plan: --WBC 11.6 upon admission. --+Febrile 102.3 --Pt denies any fever, illness, exposure, cough --CXR 11/2 negative for any acute process. --UA, urine cx, and blood cx ordered. --APAP PRN. --CBC in AM, monitor temp. Chronic diarrhea 09/16/2011 06/07/2014 Labyrinthitis 02/05/2010 06/07/2014 Type 2 diabetes mellitus, uncontrolled 8 02/19/2015 Duodenitis without mention of hemorrhage 06/07/2014 documented as of this encounter (statuses as of 03/06/2022) [facility]05-[facility]2019 History of Past illness Narrative* Problem Noted Date Resolved Date Localized swelling, mass and lump, neck 07/29/1906/05/2020 Family history of cerebrovascular accident (CVA) 01/26/2018 06/05/2020 Subsequent non-ST elevation (NSTEMI) myocardial infarction within 4 weeks of initial infarction 12/25/2014 06/05/2020 Elevated troponin I level 01/29/20132020 Overview: Last Assessment & Plan: --Troponin 0.13 at [facility] and [facility]. --Repeat troponin down to 0.08 --4th troponin pending tonight. --CP free. --Continue CAD management. --Telemetry. Leukocytosis 01/29/2013 06/05/2020 Overview: Last Assessment & Plan: --WBC 11.6 upon admission. --+Febrile 102.3 --Pt denies any fever, illness, exposure, cough --CXR 11/2 negative for any acute process. --UA, urine cx, and blood cx ordered. --APAP PRN. --CBC in AM, monitor temp. Chronic diarrhea 09/16/2011 06/07/2014 Labyrinthitis 02/05/2010 06/07/2014 Type 2 diabetes mellitus, uncontrolled 8 02/19/2015 Duodenitis without mention of hemorrhage 06/07/2014 documented as of this encounter (statuses as of 03/08/2022) [facility]05[facility]2019 History of Past illness Narrative* Problem Noted Date Resolved Date Localized swelling, mass and lump, neck 07/29/19 19 06/05/2020 Family history of cerebrovascular accident (CVA) 01/26/2018 06/05/2020 Subsequent non-ST elevation (NSTEMI) myocardial infarction within 4 weeks of initial infarction 12/25/2014 06/05/2020 Elevated troponin I level 01/29/20132020 Overview: Last Assessment & Plan: --Troponin 0.13 at [facility] and [facility]. --Repeat troponin down to 0.08 --4th troponin pending tonight. --CP free. --Continue CAD management. --Telemetry. Leukocytosis 01/29/2013 06/05/2020 Overview: Last Assessment & Plan: --WBC 11.6 upon admission. --+Febrile 102.3 --Pt denies any fever, illness, exposure, cough --CXR 01/29 negative for any acute process. --UA, urine cx, and blood cx ordered. --APAP PRN. --CBC in AM, monitor temp. Chronic diarrhea 09/16/2011 06/07/2014 Labyrinthitis 02/05/2010 06/07/2014 Type 2 diabetes mellitus, uncontrolled 8 02/19/2015 Duodenitis without mention of hemorrhage 06/07/2014 documented as of this encounter (statuses as of 03/10/2022) [facility]05[facility]2019 History of Past illness Narrative* Problem Noted Date Resolved Date Localized swelling, mass and lump, neck 07/29/19 19 06/05/2020 Family history of cerebrovascular accident (CVA) 01/26/2018 06/05/2020 Subsequent non-ST elevation (NSTEMI) myocardial infarction within 4 weeks of initial infarction 12/25/2014 06/05/2020 Elevated troponin I level 01/29/20132020 Overview: Last Assessment & Plan: --Troponin 0.13 at [facility] and [facility]. --Repeat troponin down to 0.08 --4th troponin pending tonight. --CP free. --Continue CAD management. --Telemetry. Leukocytosis 01/29/2013 06/05/2020 Overview: Last Assessment & Plan: --WBC 11.6 upon admission. --+Febrile 102.3 --Pt denies any fever, illness, exposure, cough --CXR 11/2 negative for any acute process. --UA, urine cx, and blood cx ordered. --APAP PRN. --CBC in AM, monitor temp. Chronic diarrhea 09/16/2011 06/07/2014 Labyrinthitis 02/05/2010 06/07/2014 Type 2 diabetes mellitus, uncontrolled 8 02/19/2015 Duodenitis without mention of hemorrhage 06/07/2014 documented as of this encounter (statuses as of 03/16/2022) [facility] History of Past illness Narrative* Problem Noted Date Resolved Date Localized swelling, mass and lump, neck 07/29/19 19 06/05/2020 Family history of cerebrovascular accident (CVA) 01/26/2018 06/05/2020 Subsequent non-ST elevation (NSTEMI) myocardial infarction within 4 weeks of initial infarction 12/25/2014 06/05/2020 Elevated troponin I level 01/29/20132020 Overview: Last Assessment & Plan: --Troponin 0.13 at [facility] and [facility]. --Repeat troponin down to 0.08 --4th troponin pending tonight. --CP free. --Continue CAD management. --Telemetry. Leukocytosis 01/29/2013 06/05/2020 Overview: Last Assessment & Plan: --WBC 11.6 upon admission. --+Febrile 102.3 --Pt denies any fever, illness, exposure, cough --CXR 11/2 negative for any acute process. --UA, urine cx, and blood cx ordered. --APAP PRN. --CBC in AM, monitor temp. Chronic diarrhea 09/16/2011 06/07/2014 Labyrinthitis 02/05/2010 06/07/2014 Type 2 diabetes mellitus, uncontrolled 8 02/19/2015 Duodenitis without mention of hemorrhage 06/07/2014 documented as of this encounter (statuses as of 03/18/2022) [facility] History of Past illness Narrative* Problem Noted Date Resolved Date Localized swelling, mass and lump, neck 07/29/19 19 06/05/2020 Family history of cerebrovascular accident (CVA) 01/26/2018 06/05/2020 Subsequent non-ST elevation (NSTEMI) myocardial infarction within 4 weeks of initial infarction 12/25/2014 06/05/2020 Elevated troponin I level 01/29/20132020 Overview: Last Assessment & Plan: --Troponin 0.13 at [facility] and [facility]. --Repeat troponin down to 0.08 --4th troponin pending tonight. --CP free. --Continue CAD management. --Telemetry. Leukocytosis 01/29/2013 06/05/2020 Overview: Last Assessment & Plan: --WBC 11.6 upon admission. --+Febrile 102.3 --Pt denies any fever, illness, exposure, cough --CXR 01/29 negative for any acute process. --UA, urine cx, and blood cx ordered. --APAP PRN. --CBC in AM, monitor temp. Chronic diarrhea 09/16/2011 06/07/2014 Labyrinthitis 02/05/2010 06/07/2014 Type 2 diabetes mellitus, uncontrolled 8 02/19/2015 Duodenitis without mention of hemorrhage 06/07/2014 documented as of this encounter (statuses as of 03/19/2022) [facility] History of Past illness Narrative* Problem Noted Date Resolved Date Localized swelling, mass and lump, neck 07/29/19 19 06/05/2020 Family history of cerebrovascular accident (CVA) 01/26/2018 06/05/2020 Subsequent non-ST elevation (NSTEMI) myocardial infarction within 4 weeks of initial infarction 12/25/2014 06/05/2020 Elevated troponin I level 01/29/20132020 Overview: Last Assessment & Plan: --Troponin 0.13 at [facility] and [facility]. --Repeat troponin down to 0.08 --4th troponin pending tonight. --CP free. --Continue CAD management. --Telemetry. Leukocytosis 01/29/2013 06/05/2020 Overview: Last Assessment & Plan: --WBC 11.6 upon admission. --+Febrile 102.3 --Pt denies any fever, illness, exposure, cough --CXR 11/2 negative for any acute process. --UA, urine cx, and blood cx ordered. --APAP PRN. --CBC in AM, monitor temp. Chronic diarrhea 09/16/2011 06/07/2014 Labyrinthitis 02/05/2010 06/07/2014 Type 2 diabetes mellitus, uncontrolled 8 02/19/2015 Duodenitis without mention of hemorrhage 06/07/2014 documented as of this encounter (statuses as of 03/22/2022) [facility] History of Past illness Narrative* Problem Noted Date Resolved Date Localized swelling, mass and lump, neck 07/29/19 19 06/05/2020 Family history of cerebrovascular accident (CVA) 01/26/2018 06/05/2020 Subsequent non-ST elevation (NSTEMI) myocardial infarction within 4 weeks of initial infarction 12/25/2014 06/05/2020 Elevated troponin I level 01/29/20132020 Overview: Last Assessment & Plan: --[facility]roponin 0.13 at [facility] and [facility]. --Repeat troponin down to 0.08 --4th troponin pending tonight. --CP free. --Continue CAD management. --Telemetry. Leukocytosis 01/29/2013 06/05/2020 Overview: Last Assessment & Plan: --WBC 11.6 upon admission. --+Febrile 102.3 --Pt denies any fever, illness, exposure, cough --CXR 11/2 negative for any acute process. --UA, urine cx, and blood cx ordered. --APAP PRN. --CBC in AM, monitor temp. Chronic diarrhea 09/16/2011 06/07/2014 Labyrinthitis 02/05/2010 06/07/2014 Type 2 diabetes mellitus, uncontrolled 8 02/19/2015 Duodenitis without mention of hemorrhage 06/07/2014 documented as of this encounter (statuses as of 04/17/2022) [facility] History of Past illness Narrative* Problem Noted Date Resolved Date Localized swelling, mass and lump, neck 07/29/1906/05/2020 Family history of cerebrovascular accident (CVA) 01/26/2018 06/05/2020 Subsequent non-ST elevation (NSTEMI) myocardial infarction within 4 weeks of initial infarction 12/25/2014 06/05/2020 Elevated troponin I level 01/29/20132020 Overview: Last Assessment & Plan: --Troponin 0.13 at [facility] and [facility]. --Repeat troponin down to 0.08 --4th troponin pending tonight. --CP free. --Continue CAD management. --Telemetry. Leukocytosis 01/29/2013 06/05/2020 Overview: Last Assessment & Plan: --WBC 11.6 upon admission. --+Febrile 102.3 --Pt denies any fever, illness, exposure, cough --CXR 01/29 negative for any acute process. --UA, urine cx, and blood cx ordered. --APAP PRN. --CBC in AM, monitor temp. Chronic diarrhea 09/16/2011 06/07/2014 Labyrinthitis 02/05/2010 06/07/2014 Type 2 diabetes mellitus, uncontrolled 8 02/19/2015 Duodenitis without mention of hemorrhage 06/07/2014 documented as of this encounter (statuses as of 04/22/2022) [facility] History of Past illness Narrative* Problem Noted Date Resolved Date Localized swelling, mass and lump, neck 07/29/1906/05/2020 Family history of cerebrovascular accident (CVA) 01/26/2018 06/05/2020 Subsequent non-ST elevation (NSTEMI) myocardial infarction within 4 weeks of initial infarction 12/25/2014 06/05/2020 Elevated troponin I level 01/29/20132020 Overview: Last Assessment & Plan: --Troponin 0.13 at [facility] and [facility]. --Repeat troponin down to 0.08 --4th troponin pending tonight. --CP free. --Continue CAD management. --Telemetry. Leukocytosis 01/29/2013 06/05/2020 Overview: Last Assessment & Plan: --WBC 11.6 upon admission. --+Febrile 102.3 --Pt denies any fever, illness, exposure, cough --CXR 01/29 negative for any acute process. --UA, urine cx, and blood cx ordered. --APAP PRN. --CBC in AM, monitor temp. Chronic diarrhea 09/16/2011 06/07/2014 Labyrinthitis 02/05/2010 06/07/2014 Type 2 diabetes mellitus, uncontrolled 8 02/19/2015 Duodenitis without mention of hemorrhage 06/07/2014 documented as of this encounter (statuses as of 04/22/2022) [facility] History of Past illness Narrative* Problem Noted Date Resolved Date Localized swelling, mass and lump, neck 07/29/19 19 06/05/2020 Family history of cerebrovascular accident (CVA) 01/26/2018 06/05/2020 Subsequent non-ST elevation (NSTEMI) myocardial infarction within 4 weeks of initial infarction 12/25/2014 06/05/2020 Elevated troponin I level 01/29/20132020 Overview: Last Assessment & Plan: --Troponin 0.13 at [facility] and 0[facility]. --Repeat troponin down to 0.08 --4th troponin pending tonight. --CP free. --Continue CAD management. --Telemetry. Leukocytosis 01/29/2013 06/05/2020 Overview: Last Assessment & Plan: --WBC 11.6 upon admission. --+Febrile 102.3 --Pt denies any fever, illness, exposure, cough --CXR 2 negative for any acute process. --UA, urine cx, and blood cx ordered. --APAP PRN. --CBC in AM, monitor temp. Chronic diarrhea 09/16/2011 06/07/2014 Labyrinthitis 02/05/2010 06/07/2014 Type 2 diabetes mellitus, uncontrolled 8 02/19/2015 Duodenitis without mention of hemorrhage 06/07/2014 documented as of this encounter (statuses as of 04/23/2022) [facility]05-01-2019 History of Past illness Narrative* Problem Noted Date Resolved Date Localized swelling, mass and lump, neck 07/29/1906/05/2020 Family history of cerebrovascular accident (CVA) 01/26/2018 06/05/2020 Subsequent non-ST elevation (NSTEMI) myocardial infarction within 4 weeks of initial infarction 12/25/2014 06/05/2020 Elevated troponin I level 01/29/20132020 Overview: Last Assessment & Plan: --Troponin 0.13 at [facility] and 0.14 in [facility]. --Repeat troponin down to 0.08 --4th troponin pending tonight. --CP free. --Continue CAD management. --Telemetry. Leukocytosis 01/29/2013 06/05/2020 Overview: Last Assessment & Plan: --WBC 11.6 upon admission. --+Febrile 102.3 --Pt denies any fever, illness, exposure, cough --CXR 2 negative for any acute process. --UA, urine cx, and blood cx ordered. --APAP PRN. --CBC in AM, monitor temp. Chronic diarrhea 09/16/2011 06/07/2014 Labyrinthitis 02/05/2010 06/07/2014 Type 2 diabetes mellitus, uncontrolled 8 02/19/2015 Duodenitis without mention of hemorrhage 06/07/2014 documented as of this encounter (statuses as of 04/24/2022) [facility]05-01[facility]2019 History of Past illness Narrative* Problem Noted Date Resolved Date Localized swelling, mass and lump, neck 07/29/1906/0506/05/2020 Family history of cerebrovascular accident (CVA) 01/26/2018 06/05/2020 Subsequent non-ST elevation (NSTEMI) myocardial infarction within 4 weeks of initial infarction 12/25/2014 06/05/2020 Elevated troponin I level 01/29/20132020 Overview: Last Assessment & Plan: --Troponin 0.13 at [facility] and 0.[facility]. --Repeat troponin down to 0.08 --4th troponin pending tonight. --CP free. --Continue CAD management. --Telemetry. Leukocytosis 01/29/2013 06/05/2020 Overview: Last Assessment & Plan: --WBC 11.6 upon admission. --+Febrile 102.3 --Pt denies any fever, illness, exposure, cough --CXR 01/29 negative for any acute process. --UA, urine cx, and blood cx ordered. --APAP PRN. --CBC in AM, monitor temp. Chronic diarrhea 09/16/2011 06/07/2014 Labyrinthitis 02/05/2010 06/07/2014 Type 2 diabetes mellitus, uncontrolled 8 02/19/2015 Duodenitis without mention of hemorrhage 06/07/2014 documented as of this encounter (statuses as of 04/25/2022) [facility]05-[facility]2019 History of Past illness Narrative* Problem Noted Date Resolved Date Localized swelling, mass and lump, neck 07/29/19 19 06/05/2020 Family history of cerebrovascular accident (CVA) 01/26/2018 06/05/2020 Subsequent non-ST elevation (NSTEMI) myocardial infarction within 4 weeks of initial infarction 12/25/2014 06/05/2020 Elevated troponin I level 01/29/20132020 Overview: Last Assessment & Plan: --Troponin 0.13 at [facility] and 0[facility]. --Repeat troponin down to 0.08 --4th troponin pending tonight. --CP free. --Continue CAD management. --Telemetry. Leukocytosis 01/29/2013 06/05/2020 Overview: Last Assessment & Plan: --WBC 11.6 upon admission. --+Febrile 102.3 --Pt denies any fever, illness, exposure, cough --CXR 11/2 negative for any acute process. --UA, urine cx, and blood cx ordered. --APAP PRN. --CBC in AM, monitor temp. Chronic diarrhea 09/16/2011 06/07/2014 Labyrinthitis 02/05/2010 06/07/2014 Type 2 diabetes mellitus, uncontrolled 8 02/19/2015 Duodenitis without mention of hemorrhage 06/07/2014 documented as of this encounter (statuses as of 04/28/2022) [facility]2019 History of Past illness Narrative* Problem Noted Date Resolved Date Localized swelling, mass and lump, neck 07/29/1906/05/2020 Family history of cerebrovascular accident (CVA) 01/26/2018 06/05/2020 Subsequent non-ST elevation (NSTEMI) myocardial infarction within 4 weeks of initial infarction 12/25/2014 06/05/2020 Elevated troponin I level 01/29/20132020 Overview: Last Assessment & Plan: --Troponin 0.13 at [facility] and 0[facility]. --Repeat troponin down to 0.08 --4th troponin pending tonight. --CP free. --Continue CAD management. --Telemetry. Leukocytosis 01/29/2013 06/05/2020 Overview: Last Assessment & Plan: --WBC 11.6 upon admission. --+Febrile 102.3 --Pt denies any fever, illness, exposure, cough --CXR 11/2 negative for any acute process. --UA, urine cx, and blood cx ordered. --APAP PRN. --CBC in AM, monitor temp. Chronic diarrhea 09/16/2011 06/07/2014 Labyrinthitis 02/05/2010 06/07/2014 Type 2 diabetes mellitus, uncontrolled 8 02/19/2015 Duodenitis without mention of hemorrhage 06/07/2014 documented as of this encounter (statuses as of 04/29/2022) [facility]2019 History of Past illness Narrative* Problem Noted Date Resolved Date Localized swelling, mass and lump, neck 07/29/19 19 06/05/2020 Family history of cerebrovascular accident (CVA) 01/26/2018 06/05/2020 Subsequent non-ST elevation (NSTEMI) myocardial infarction within 4 weeks of initial infarction 12/25/2014 06/05/2020 Elevated troponin I level 01/29/20132020 Overview: Last Assessment & Plan: --Troponin 0.13 at [facility] and 0[facility]. --Repeat troponin down to 0.08 --4th troponin pending tonight. --CP free. --Continue CAD management. --Telemetry. Leukocytosis 01/29/2013 06/05/2020 Overview: Last Assessment & Plan: --WBC 11.6 upon admission. --+Febrile 102.3 --Pt denies any fever, illness, exposure, cough --CXR 01/29 negative for any acute process. --UA, urine cx, and blood cx ordered. --APAP PRN. --CBC in AM, monitor temp. Chronic diarrhea 09/16/2011 06/07/2014 Labyrinthitis 02/05/2010 06/07/2014 Type 2 diabetes mellitus, uncontrolled 8 02/19/2015 Duodenitis without mention of hemorrhage 06/07/2014 documented as of this encounter (statuses as of 05/02/2022) [facility]05[facility]2019 History of Past illness Narrative* Problem Noted Date Resolved Date Localized swelling, mass and lump, neck 07/29/19 19 06/05/2020 Family history of cerebrovascular accident (CVA) 01/26/2018 06/05/2020 Subsequent non-ST elevation (NSTEMI) myocardial infarction within 4 weeks of initial infarction 12/25/2014 06/05/2020 Elevated troponin I level 01/29/20132020 Overview: Last Assessment & Plan: --Troponin 0.13 at [facility] and [facility]. --Repeat troponin down to 0.08 --4th troponin pending tonight. --CP free. --Continue CAD management. --Telemetry. Leukocytosis 01/29/2013 06/05/2020 Overview: Last Assessment & Plan: --WBC 11.6 upon admission. --+Febrile 102.3 --Pt denies any fever, illness, exposure, cough --CXR 11/2 negative for any acute process. --UA, urine cx, and blood cx ordered. --APAP PRN. --CBC in AM, monitor temp. Chronic diarrhea 09/16/2011 06/07/2014 Labyrinthitis 02/05/2010 06/07/2014 Type 2 diabetes mellitus, uncontrolled 8 02/19/2015 Duodenitis without mention of hemorrhage 06/07/2014 documented as of this encounter (statuses as of 05/03/2022) [facility]05[facility]01[facility]2019 History of Past illness Narrative* Problem Noted Date Resolved Date Localized swelling, mass and lump, neck 07/29/19 19 06/05/2020 Family history of cerebrovascular accident (CVA) 01/26/2018 06/05/2020 Subsequent non-ST elevation (NSTEMI) myocardial infarction within 4 weeks of initial infarction 12/25/2014 06/05/2020 Elevated troponin I level 01/29/20132020 Overview: Last Assessment & Plan: --Troponin 0.13 at [facility] and [facility]. --Repeat troponin down to 0.08 --4th troponin pending tonight. --CP free. --Continue CAD management. --Telemetry. Leukocytosis 01/29/2013 06/05/2020 Overview: Last Assessment & Plan: --WBC 11.6 upon admission. --+Febrile 102.3 --Pt denies any fever, illness, exposure, cough --CXR 11/2 negative for any acute process. --UA, urine cx, and blood cx ordered. --APAP PRN. --CBC in AM, monitor temp. Chronic diarrhea 09/16/2011 06/07/2014 Labyrinthitis 02/05/2010 06/07/2014 Type 2 diabetes mellitus, uncontrolled 8 02/19/2015 Duodenitis without mention of hemorrhage 06/07/2014 documented as of this encounter (statuses as of 05/06/2022) [facility]2019 History of Past illness Narrative* Problem Noted Date Resolved Date Localized swelling, mass and lump, neck 07/29/1906/05/2020 Family history of cerebrovascular accident (CVA) 01/26/2018 06/05/2020 Subsequent non-ST elevation (NSTEMI) myocardial infarction within 4 weeks of initial infarction 12/25/2014 06/05/2020 Elevated troponin I level 01/29/20132020 Overview: Last Assessment & Plan: --Troponin 0.13 at [facility] and [facility]. --Repeat troponin down to 0.08 --4th troponin pending tonight. --CP free. --Continue CAD management. --Telemetry. Leukocytosis 01/29/2013 06/05/2020 Overview: Last Assessment & Plan: --WBC 11.6 upon admission. --+Febrile 102.3 --Pt denies any fever, illness, exposure, cough --CXR 01/29 negative for any acute process. --UA, urine cx, and blood cx ordered. --APAP PRN. --CBC in AM, monitor temp. Chronic diarrhea 09/16/2011 06/07/2014 Labyrinthitis 02/05/2010 06/07/2014 Type 2 diabetes mellitus, uncontrolled 8 02/19/2015 Duodenitis without mention of hemorrhage 06/07/2014 documented as of this encounter (statuses as of 05/06/2022) [facility] History of Past illness Narrative* Problem Noted Date Resolved Date Localized swelling, mass and lump, neck 07/29/1906/05/2020 Family history of cerebrovascular accident (CVA) 01/26/2018 06/05/2020 Subsequent non-ST elevation (NSTEMI) myocardial infarction within 4 weeks of initial infarction 12/25/2014 06/05/2020 Elevated troponin I level 01/29/20132020 Overview: Last Assessment & Plan: --Troponin 0.13 at [facility] and [facility]. --Repeat troponin down to 0.08 --4th troponin pending tonight. --CP free. --Continue CAD management. --Telemetry. Leukocytosis 01/29/2013 06/05/2020 Overview: Last Assessment & Plan: --WBC 11.6 upon admission. --+Febrile 102.3 --Pt denies any fever, illness, exposure, cough --CXR 11/2 negative for any acute process. --UA, urine cx, and blood cx ordered. --APAP PRN. --CBC in AM, monitor temp. Chronic diarrhea 09/16/2011 06/07/2014 Labyrinthitis 02/05/2010 06/07/2014 Type 2 diabetes mellitus, uncontrolled 8 02/19/2015 Duodenitis without mention of hemorrhage 06/07/2014 documented as of this encounter (statuses as of 05/07/2022) [facility] History of Past illness Narrative* Problem Noted Date Resolved Date Localized swelling, mass and lump, neck 07/29/19 19 06/05/2020 Family history of cerebrovascular accident (CVA) 01/26/2018 06/05/2020 Subsequent non-ST elevation (NSTEMI) myocardial infarction within 4 weeks of initial infarction 12/25/2014 06/05/2020 Elevated troponin I level 01/29/20132020 Overview: Last Assessment & Plan: --Troponin 0.13 at [facility] and [facility]. --Repeat troponin down to 0.08 --4th troponin pending tonight. --CP free. --Continue CAD management. --Telemetry. Leukocytosis 01/29/2013 06/05/2020 Overview: Last Assessment & Plan: --WBC 11.6 upon admission. --+Febrile 102.3 --Pt denies any fever, illness, exposure, cough --CXR 11/2 negative for any acute process. --UA, urine cx, and blood cx ordered. --APAP PRN. --CBC in AM, monitor temp. Chronic diarrhea 09/16/2011 06/07/2014 Labyrinthitis 02/05/2010 06/07/2014 Type 2 diabetes mellitus, uncontrolled 8 02/19/2015 Duodenitis without mention of hemorrhage 06/07/2014 documented as of this encounter (statuses as of 05/07/2022) [facility]2019 History of Past illness Narrative* Problem Noted Date Resolved Date Localized swelling, mass and lump, neck 07/29/1906/05/2020 Family history of cerebrovascular accident (CVA) 01/26/2018 06/05/2020 Subsequent non-ST elevation (NSTEMI) myocardial infarction within 4 weeks of initial infarction 12/25/2014 06/05/2020 Elevated troponin I level 01/29/20132020 Overview: Last Assessment & Plan: --Troponin 0.13 at [facility] and [facility]. --Repeat troponin down to 0.08 --4th troponin pending tonight. --CP free. --Continue CAD management. --Telemetry. Leukocytosis 01/29/2013 06/05/2020 Overview: Last Assessment & Plan: --WBC 11.6 upon admission. --+Febrile 102.3 --Pt denies any fever, illness, exposure, cough --CXR 01/29 negative for any acute process. --UA, urine cx, and blood cx ordered. --APAP PRN. --CBC in AM, monitor temp. Chronic diarrhea 09/16/2011 06/07/2014 Labyrinthitis 02/05/2010 06/07/2014 Type 2 diabetes mellitus, uncontrolled 8 02/19/2015 Duodenitis without mention of hemorrhage 06/07/2014 documented as of this encounter (statuses as of 05/12/2022) [facility]2019 History of Past illness Narrative* Problem Noted Date Resolved Date Localized swelling, mass and lump, neck 07/29/1906/05/2020 Family history of cerebrovascular accident (CVA) 01/26/2018 06/05/2020 Subsequent non-ST elevation (NSTEMI) myocardial infarction within 4 weeks of initial infarction 12/25/2014 06/05/2020 Elevated troponin I level 01/29/20132020 Overview: Last Assessment & Plan: --Troponin 0.13 at [facility] and [facility]. --Repeat troponin down to 0.08 --4th troponin pending tonight. --CP free. --Continue CAD management. --Telemetry. Leukocytosis 01/29/2013 06/05/2020 Overview: Last Assessment & Plan: --WBC 11.6 upon admission. --+Febrile 102.3 --Pt denies any fever, illness, exposure, cough --CXR 01/29 negative for any acute process. --UA, urine cx, and blood cx ordered. --APAP PRN. --CBC in AM, monitor temp. Chronic diarrhea 09/16/2011 06/07/2014 Labyrinthitis 02/05/2010 06/07/2014 Type 2 diabetes mellitus, uncontrolled 8 02/19/2015 Duodenitis without mention of hemorrhage 06/07/2014 documented as of this encounter (statuses as of 05/13/2022) [facility]2019 History of Past illness Narrative* Problem Noted Date Resolved Date Localized swelling, mass and lump, neck 07/29/19 19 06/05/2020 Family history of cerebrovascular accident (CVA) 01/26/2018 06/05/2020 Subsequent non-ST elevation (NSTEMI) myocardial infarction within 4 weeks of initial infarction 12/25/2014 06/05/2020 Elevated troponin I level 01/29/20132020 Overview: Last Assessment & Plan: --Troponin 0.13 at [facility] and [facility]. --Repeat troponin down to 0.08 --4th troponin pending tonight. --CP free. --Continue CAD management. --Telemetry. Leukocytosis 01/29/2013 06/05/2020 Overview: Last Assessment & Plan: --WBC 11.6 upon admission. --+Febrile 102.3 --Pt denies any fever, illness, exposure, cough --CXR 11/2 negative for any acute process. --UA, urine cx, and blood cx ordered. --APAP PRN. --CBC in AM, monitor temp. Chronic diarrhea 09/16/2011 06/07/2014 Labyrinthitis 02/05/2010 06/07/2014 Type 2 diabetes mellitus, uncontrolled 8 02/19/2015 Duodenitis without mention of hemorrhage 06/07/2014 documented as of this encounter (statuses as of 05/13/2022) [facility]01[facility]2019 History of Past illness Narrative* Problem Noted Date Resolved Date Localized swelling, mass and lump, neck 07/29/1906/05/2020 Family history of cerebrovascular accident (CVA) 01/26/2018 06/05/2020 Subsequent non-ST elevation (NSTEMI) myocardial infarction within 4 weeks of initial infarction 12/25/2014 06/05/2020 Elevated troponin I level 01/29/20132020 Overview: Last Assessment & Plan: --Troponin 0.13 at [facility] and [facility]. --Repeat troponin down to 0.08 --4th troponin pending tonight. --CP free. --Continue CAD management. --Telemetry. Leukocytosis 01/29/2013 06/05/2020 Overview: Last Assessment & Plan: --WBC 11.6 upon admission. --+Febrile 102.3 --Pt denies any fever, illness, exposure, cough --CXR 11/2 negative for any acute process. --UA, urine cx, and blood cx ordered. --APAP PRN. --CBC in AM, monitor temp. Chronic diarrhea 09/16/2011 06/07/2014 Labyrinthitis 02/05/2010 06/07/2014 Type 2 diabetes mellitus, uncontrolled 8 02/19/2015 Duodenitis without mention of hemorrhage 06/07/2014 documented as of this encounter (statuses as of 05/15/2022) [facility] History of Past illness Narrative* Problem Noted Date Resolved Date Localized swelling, mass and lump, neck 07/29/19 19 06/05/2020 Family history of cerebrovascular accident (CVA) 01/26/2018 06/05/2020 Subsequent non-ST elevation (NSTEMI) myocardial infarction within 4 weeks of initial infarction 12/25/2014 06/05/2020 Elevated troponin I level 01/29/20132020 Overview: Last Assessment & Plan: --Troponin 0.13 at [facility] and [facility]. --Repeat troponin down to 0.08 --4th troponin pending tonight. --CP free. --Continue CAD management. --Telemetry. Leukocytosis 01/29/2013 06/05/2020 Overview: Last Assessment & Plan: --WBC 11.6 upon admission. --+Febrile 102.3 --Pt denies any fever, illness, exposure, cough --CXR 01/29 negative for any acute process. --UA, urine cx, and blood cx ordered. --APAP PRN. --CBC in AM, monitor temp. Chronic diarrhea 09/16/2011 06/07/2014 Labyrinthitis 02/05/2010 06/07/2014 Type 2 diabetes mellitus, uncontrolled 8 02/19/2015 Duodenitis without mention of hemorrhage 06/07/2014 documented as of this encounter (statuses as of 05/21/2022) [facility] History of Past illness Narrative* Problem Noted Date Resolved Date Localized swelling, mass and lump, neck 07/29/19 19 06/05/2020 Family history of cerebrovascular accident (CVA) 01/26/2018 06/05/2020 Subsequent non-ST elevation (NSTEMI) myocardial infarction within 4 weeks of initial infarction 12/25/2014 06/05/2020 Elevated troponin I level 01/29/20132020 Overview: Last Assessment & Plan: --Troponin 0.13 at [facility] and [facility]. --Repeat troponin down to 0.08 --4th troponin pending tonight. --CP free. --Continue CAD management. --Telemetry. Leukocytosis 01/29/2013 06/05/2020 Overview: Last Assessment & Plan: --WBC 11.6 upon admission. --+Febrile 102.3 --Pt denies any fever, illness, exposure, cough --CXR 11/2 negative for any acute process. --UA, urine cx, and blood cx ordered. --APAP PRN. --CBC in AM, monitor temp. Chronic diarrhea 09/16/2011 06/07/2014 Labyrinthitis 02/05/2010 06/07/2014 Type 2 diabetes mellitus, uncontrolled 8 02/19/2015 Duodenitis without mention of hemorrhage 06/07/2014 documented as of this encounter (statuses as of 05/22/2022) [facility] History of Past illness Narrative* Problem Noted Date Resolved Date Localized swelling, mass and lump, neck 07/29/19 19 06/05/2020 Family history of cerebrovascular accident (CVA) 01/26/2018 06/05/2020 Subsequent non-ST elevation (NSTEMI) myocardial infarction within 4 weeks of initial infarction 12/25/2014 06/05/2020 Elevated troponin I level 01/29/20132020 Overview: Last Assessment & Plan: --Troponin 0.13 at [facility] and [facility]. --Repeat troponin down to 0.08 --4th troponin pending tonight. --CP free. --Continue CAD management. --Telemetry. Leukocytosis 01/29/2013 06/05/2020 Overview: Last Assessment & Plan: --WBC 11.6 upon admission. --+Febrile 102.3 --Pt denies any fever, illness, exposure, cough --CXR 11/2 negative for any acute process. --UA, urine cx, and blood cx ordered. --APAP PRN. --CBC in AM, monitor temp. Chronic diarrhea 09/16/2011 06/07/2014 Labyrinthitis 02/05/2010 06/07/2014 Type 2 diabetes mellitus, uncontrolled 8 02/19/2015 Duodenitis without mention of hemorrhage 06/07/2014 documented as of this encounter (statuses as of 05/22/2022) [facility] History of Past illness Narrative* Problem Noted Date Resolved Date Localized swelling, mass and lump, neck 07/29/19 19 06/05/2020 Family history of cerebrovascular accident (CVA) 01/26/2018 06/05/2020 Subsequent non-ST elevation (NSTEMI) myocardial infarction within 4 weeks of initial infarction 12/25/2014 06/05/2020 Elevated troponin I level 01/29/20132020 Overview: Last Assessment & Plan: --Troponin 0.13 at [facility] and [facility]. --Repeat troponin down to 0.08 --4th troponin pending tonight. --CP free. --Continue CAD management. --Telemetry. Leukocytosis 01/29/2013 06/05/2020 Overview: Last Assessment & Plan: --WBC 11.6 upon admission. --+Febrile 102.3 --Pt denies any fever, illness, exposure, cough --CXR 01/29 negative for any acute process. --UA, urine cx, and blood cx ordered. --APAP PRN. --CBC in AM, monitor temp. Chronic diarrhea 09/16/2011 06/07/2014 Labyrinthitis 02/05/2010 06/07/2014 Type 2 diabetes mellitus, uncontrolled 8 02/19/2015 Duodenitis without mention of hemorrhage 06/07/2014 documented as of this encounter (statuses as of 05/23/2022) [facility] History of Past illness Narrative* Problem Noted Date Resolved Date Localized swelling, mass and lump, neck 07/29/19 19 06/05/2020 Family history of cerebrovascular accident (CVA) 01/26/2018 06/05/2020 Subsequent non-ST elevation (NSTEMI) myocardial infarction within 4 weeks of initial infarction 12/25/2014 06/05/2020 Elevated troponin I level 01/29/20132020 Overview: Last Assessment & Plan: --[facility]roponin 0.13 at [facility] and [facility]. --Repeat troponin down to 0.08 --4th troponin pending tonight. --CP free. --Continue CAD management. --Telemetry. Leukocytosis 01/29/2013 06/05/2020 Overview: Last Assessment & Plan: --WBC 11.6 upon admission. --+Febrile 102.3 --Pt denies any fever, illness, exposure, cough --CXR 11/2 negative for any acute process. --UA, urine cx, and blood cx ordered. --APAP PRN. --CBC in AM, monitor temp. Chronic diarrhea 09/16/2011 06/07/2014 Labyrinthitis 02/05/2010 06/07/2014 Type 2 diabetes mellitus, uncontrolled 8 02/19/2015 Duodenitis without mention of hemorrhage 06/07/2014 documented as of this encounter (statuses as of 05/23/2022) [facility] History of Past illness Narrative* Problem Noted Date Resolved Date Localized swelling, mass and lump, neck 07/29/19 19 06/05/2020 Family history of cerebrovascular accident (CVA) 01/26/2018 06/05/2020 Subsequent non-ST elevation (NSTEMI) myocardial infarction within 4 weeks of initial infarction 12/25/2014 06/05/2020 Elevated troponin I level 01/29/20132020 Overview: Last Assessment & Plan: --Troponin 0.13 at [facility] and [facility]. --Repeat troponin down to 0.08 --4th troponin pending tonight. --CP free. --Continue CAD management. --Telemetry. Leukocytosis 01/29/2013 06/05/2020 Overview: Last Assessment & Plan: --WBC 11.6 upon admission. --+Febrile 102.3 --Pt denies any fever, illness, exposure, cough --CXR 11/2 negative for any acute process. --UA, urine cx, and blood cx ordered. --APAP PRN. --CBC in AM, monitor temp. Chronic diarrhea 09/16/2011 06/07/2014 Labyrinthitis 02/05/2010 06/07/2014 Type 2 diabetes mellitus, uncontrolled 8 02/19/2015 Duodenitis without mention of hemorrhage 06/07/2014 documented as of this encounter (statuses as of 05/26/2022) [facility] History of Past illness Narrative* Problem Noted Date Resolved Date Localized swelling, mass and lump, neck 07/29/1906/05/2020 Family history of cerebrovascular accident (CVA) 01/26/2018 06/05/2020 Subsequent non-ST elevation (NSTEMI) myocardial infarction within 4 weeks of initial infarction 12/25/2014 06/05/2020 Elevated troponin I level 01/29/20132020 Overview: Last Assessment & Plan: --Troponin 0.13 at [facility] and [facility]. --Repeat troponin down to 0.08 --4th troponin pending tonight. --CP free. --Continue CAD management. --Telemetry. Leukocytosis 01/29/2013 06/05/2020 Overview: Last Assessment & Plan: --WBC 11.6 upon admission. --+Febrile 102.3 --Pt denies any fever, illness, exposure, cough --CXR 01/29 negative for any acute process. --UA, urine cx, and blood cx ordered. --APAP PRN. --CBC in AM, monitor temp. Chronic diarrhea 09/16/2011 06/07/2014 Labyrinthitis 02/05/2010 06/07/2014 Type 2 diabetes mellitus, uncontrolled 8 02/19/2015 Duodenitis without mention of hemorrhage 06/07/2014 documented as of this encounter (statuses as of 05/29/2022) [facility] History of Past illness Narrative* Problem Noted Date Resolved Date Localized swelling, mass and lump, neck 07/29/19 19 06/05/2020 Family history of cerebrovascular accident (CVA) 01/26/2018 06/05/2020 Subsequent non-ST elevation (NSTEMI) myocardial infarction within 4 weeks of initial infarction 12/25/2014 06/05/2020 Elevated troponin I level 01/29/20132020 Overview: Last Assessment & Plan: --Troponin 0.13 at [facility] and 0.14 [facility]. --Repeat troponin down to 0.08 --4th troponin pending tonight. --CP free. --Continue CAD management. --Telemetry. Leukocytosis 01/29/2013 06/05/2020 Overview: Last Assessment & Plan: --WBC 11.6 upon admission. --+Febrile 102.3 --Pt denies any fever, illness, exposure, cough --CXR 01/29 negative for any acute process. --UA, urine cx, and blood cx ordered. --APAP PRN. --CBC in AM, monitor temp. Chronic diarrhea 09/16/2011 06/07/2014 Labyrinthitis 02/05/2010 06/07/2014 Type 2 diabetes mellitus, uncontrolled 8 02/19/2015 Duodenitis without mention of hemorrhage 06/07/2014 documented as of this encounter (statuses as of 05/30/2022) [facility]05-01-2019 History of Past illness Narrative* Problem Noted Date Resolved Date Localized swelling, mass and lump, neck 07/29/19 19 06/05/2020 Family history of cerebrovascular accident (CVA) 01/26/2018 06/05/2020 Subsequent non-ST elevation (NSTEMI) myocardial infarction within 4 weeks of initial infarction 12/25/2014 06/05/2020 Elevated troponin I level 01/29/20132020 Overview: Last Assessment & Plan: --Troponin 0.13 at [facility] and 0[facility]. --Repeat troponin down to 0.08 --4th troponin pending tonight. --CP free. --Continue CAD management. --Telemetry. Leukocytosis 01/29/2013 06/05/2020 Overview: Last Assessment & Plan: --WBC 11.6 upon admission. --+Febrile 102.3 --Pt denies any fever, illness, exposure, cough --CXR 11/2 negative for any acute process. --UA, urine cx, and blood cx ordered. --APAP PRN. --CBC in AM, monitor temp. Chronic diarrhea 09/16/2011 06/07/2014 Labyrinthitis 02/05/2010 06/07/2014 Type 2 diabetes mellitus, uncontrolled 8 02/19/2015 Duodenitis without mention of hemorrhage 06/07/2014 documented as of this encounter (statuses as of 05/30/2022) [facility]05-01[facility]2019 History of Past illness Narrative* Problem Noted Date Resolved Date Localized swelling, mass and lump, neck 07/29/19 19 06/05/2020 Family history of cerebrovascular accident (CVA) 01/26/2018 06/05/2020 Subsequent non-ST elevation (NSTEMI) myocardial infarction within 4 weeks of initial infarction 12/25/2014 06/05/2020 Elevated troponin I level 01/29/20132020 Overview: Last Assessment & Plan: --Troponin 0.13 at [facility] and 0[facility]. --Repeat troponin down to 0.08 --4th troponin pending tonight. --CP free. --Continue CAD management. --Telemetry. Leukocytosis 01/29/2013 06/05/2020 Overview: Last Assessment & Plan: --WBC 11.6 upon admission. --+Febrile 102.3 --Pt denies any fever, illness, exposure, cough --CXR 11/2 negative for any acute process. --UA, urine cx, and blood cx ordered. --APAP PRN. --CBC in AM, monitor temp. Chronic diarrhea 09/16/2011 06/07/2014 Labyrinthitis 02/05/2010 06/07/2014 Type 2 diabetes mellitus, uncontrolled 8 02/19/2015 Duodenitis without mention of hemorrhage 06/07/2014 documented as of this encounter (statuses as of 06/04/2022) [facility]05[facility]2019 History of Past illness Narrative* Problem Noted Date Resolved Date Localized swelling, mass and lump, neck 07/29/19 19 06/05/2020 Family history of cerebrovascular accident (CVA) 01/26/2018 06/05/2020 Subsequent non-ST elevation (NSTEMI) myocardial infarction within 4 weeks of initial infarction 12/25/2014 06/05/2020 Elevated troponin I level 01/29/20132020 Overview: Last Assessment & Plan: --Troponin 0.13 at [facility] and 0[facility]. --Repeat troponin down to 0.08 --4th troponin pending tonight. --CP free. --Continue CAD management. --Telemetry. Leukocytosis 01/29/2013 06/05/2020 Overview: Last Assessment & Plan: --WBC 11.6 upon admission. --+Febrile 102.3 --Pt denies any fever, illness, exposure, cough --CXR 01/29 negative for any acute process. --UA, urine cx, and blood cx ordered. --APAP PRN. --CBC in AM, monitor temp. Chronic diarrhea 09/16/2011 06/07/2014 Labyrinthitis 02/05/2010 06/07/2014 Type 2 diabetes mellitus, uncontrolled 8 02/19/2015 Duodenitis without mention of hemorrhage 06/07/2014 documented as of this encounter (statuses as of 06/06/2022) [facility]2019 History of Past illness Narrative* Problem Noted Date Resolved Date Localized swelling, mass and lump, neck 07/29/19 19 06/05/2020 Family history of cerebrovascular accident (CVA) 01/26/2018 06/05/2020 Subsequent non-ST elevation (NSTEMI) myocardial infarction within 4 weeks of initial infarction 12/25/2014 06/05/2020 Elevated troponin I level 01/29/20132020 Overview: Last Assessment & Plan: --Troponin 0.13 at [facility] and [facility]. --Repeat troponin down to 0.08 --4th troponin pending tonight. --CP free. --Continue CAD management. --Telemetry. Leukocytosis 01/29/2013 06/05/2020 Overview: Last Assessment & Plan: --WBC 11.6 upon admission. --+Febrile 102.3 --Pt denies any fever, illness, exposure, cough --CXR 11/2 negative for any acute process. --UA, urine cx, and blood cx ordered. --APAP PRN. --CBC in AM, monitor temp. Chronic diarrhea 09/16/2011 06/07/2014 Labyrinthitis 02/05/2010 06/07/2014 Type 2 diabetes mellitus, uncontrolled 8 02/19/2015 Duodenitis without mention of hemorrhage 06/07/2014 documented as of this encounter (statuses as of 06/13/2022) [facility]2019 History of Past illness Narrative* Problem Noted Date Resolved Date Localized swelling, mass and lump, neck 07/29/19 19 06/05/2020 Family history of cerebrovascular accident (CVA) 01/26/2018 06/05/2020 Subsequent non-ST elevation (NSTEMI) myocardial infarction within 4 weeks of initial infarction 12/25/2014 06/05/2020 Elevated troponin I level 01/29/20132020 Overview: Last Assessment & Plan: --Troponin 0.13 at [facility] and [facility]. --Repeat troponin down to 0.08 --4th troponin pending tonight. --CP free. --Continue CAD management. --Telemetry. Leukocytosis 01/29/2013 06/05/2020 Overview: Last Assessment & Plan: --WBC 11.6 upon admission. --+Febrile 102.3 --Pt denies any fever, illness, exposure, cough --CXR 11/2 negative for any acute process. --UA, urine cx, and blood cx ordered. --APAP PRN. --CBC in AM, monitor temp. Chronic diarrhea 09/16/2011 06/07/2014 Labyrinthitis 02/05/2010 06/07/2014 Type 2 diabetes mellitus, uncontrolled 8 02/19/2015 Duodenitis without mention of hemorrhage 06/07/2014 documented as of this encounter (statuses as of 06/19/2022) [facility]05[facility]2019 History of Past illness Narrative* Problem Noted Date Resolved Date Localized swelling, mass and lump, neck 07/29/19 19 06/05/2020 Family history of cerebrovascular accident (CVA) 01/26/2018 06/05/2020 Subsequent non-ST elevation (NSTEMI) myocardial infarction within 4 weeks of initial infarction 12/25/2014 06/05/2020 Elevated troponin I level 01/29/20132020 Overview: Last Assessment & Plan: --Troponin 0.13 at [facility] and [facility]. --Repeat troponin down to 0.08 --4th troponin pending tonight. --CP free. --Continue CAD management. --Telemetry. Leukocytosis 01/29/2013 06/05/2020 Overview: Last Assessment & Plan: --WBC 11.6 upon admission. --+Febrile 102.3 --Pt denies any fever, illness, exposure, cough --CXR 01/29 negative for any acute process. --UA, urine cx, and blood cx ordered. --APAP PRN. --CBC in AM, monitor temp. Chronic diarrhea 09/16/2011 06/07/2014 Labyrinthitis 02/05/2010 06/07/2014 Type 2 diabetes mellitus, uncontrolled 8 02/19/2015 Duodenitis without mention of hemorrhage 06/07/2014 documented as of this encounter (statuses as of 06/20/2022) [facility] History of Past illness Narrative* Problem Noted Date Resolved Date Localized swelling, mass and lump, neck 07/29/1906/05/2020 Family history of cerebrovascular accident (CVA) 01/26/2018 06/05/2020 Subsequent non-ST elevation (NSTEMI) myocardial infarction within 4 weeks of initial infarction 12/25/2014 06/05/2020 Elevated troponin I level 01/29/20132020 Overview: Last Assessment & Plan: --Troponin 0.13 at [facility] and [facility]. --Repeat troponin down to 0.08 --4th troponin pending tonight. --CP free. --Continue CAD management. --Telemetry. Leukocytosis 01/29/2013 06/05/2020 Overview: Last Assessment & Plan: --WBC 11.6 upon admission. --+Febrile 102.3 --Pt denies any fever, illness, exposure, cough --CXR 11/2 negative for any acute process. --UA, urine cx, and blood cx ordered. --APAP PRN. --CBC in AM, monitor temp. Chronic diarrhea 09/16/2011 06/07/2014 Labyrinthitis 02/05/2010 06/07/2014 Type 2 diabetes mellitus, uncontrolled 8 02/19/2015 Duodenitis without mention of hemorrhage 06/07/2014 documented as of this encounter (statuses as of 06/20/2022) [facility] History of Past illness Narrative* Problem Noted Date Resolved Date Localized swelling, mass and lump, neck 07/29/19 19 06/05/2020 Family history of cerebrovascular accident (CVA) 01/26/2018 06/05/2020 Subsequent non-ST elevation (NSTEMI) myocardial infarction within 4 weeks of initial infarction 12/25/2014 06/05/2020 Elevated troponin I level 01/29/20132020 Overview: Last Assessment & Plan: --Troponin 0.13 at [facility] and [facility]. --Repeat troponin down to 0.08 --4th troponin pending tonight. --CP free. --Continue CAD management. --Telemetry. Leukocytosis 01/29/2013 06/05/2020 Overview: Last Assessment & Plan: --WBC 11.6 upon admission. --+Febrile 102.3 --Pt denies any fever, illness, exposure, cough --CXR 11/2 negative for any acute process. --UA, urine cx, and blood cx ordered. --APAP PRN. --CBC in AM, monitor temp. Chronic diarrhea 09/16/2011 06/07/2014 Labyrinthitis 02/05/2010 06/07/2014 Type 2 diabetes mellitus, uncontrolled 8 02/19/2015 Duodenitis without mention of hemorrhage 06/07/2014 documented as of this encounter (statuses as of 06/20/2022) [facility] History of Past illness Narrative* Problem Noted Date Resolved Date Localized swelling, mass and lump, neck 07/29/19 19 06/05/2020 Family history of cerebrovascular accident (CVA) 01/26/2018 06/05/2020 Subsequent non-ST elevation (NSTEMI) myocardial infarction within 4 weeks of initial infarction 12/25/2014 06/05/2020 Elevated troponin I level 01/29/20132020 Overview: Last Assessment & Plan: --Troponin 0.13 at [facility] and [facility]. --Repeat troponin down to 0.08 --4th troponin pending tonight. --CP free. --Continue CAD management. --Telemetry. Leukocytosis 01/29/2013 06/05/2020 Overview: Last Assessment & Plan: --WBC 11.6 upon admission. --+Febrile 102.3 --Pt denies any fever, illness, exposure, cough --CXR 01/29 negative for any acute process. --UA, urine cx, and blood cx ordered. --APAP PRN. --CBC in AM, monitor temp. Chronic diarrhea 09/16/2011 06/07/2014 Labyrinthitis 02/05/2010 06/07/2014 Type 2 diabetes mellitus, uncontrolled 8 02/19/2015 Duodenitis without mention of hemorrhage 06/07/2014 documented as of this encounter (statuses as of 07/03/2022) [facility] History of Past illness Narrative* Problem Noted Date Resolved Date Localized swelling, mass and lump, neck 07/29/19 19 06/05/2020 Family history of cerebrovascular accident (CVA) 01/26/2018 06/05/2020 Subsequent non-ST elevation (NSTEMI) myocardial infarction within 4 weeks of initial infarction 12/25/2014 06/05/2020 Elevated troponin I level 01/29/20132020 Overview: Last Assessment & Plan: --Troponin 0.13 at [facility] and [facility]. --Repeat troponin down to 0.08 --4th troponin pending tonight. --CP free. --Continue CAD management. --Telemetry. Leukocytosis 01/29/2013 06/05/2020 Overview: Last Assessment & Plan: --WBC 11.6 upon admission. --+Febrile 102.3 --Pt denies any fever, illness, exposure, cough --CXR 01/29 negative for any acute process. --UA, urine cx, and blood cx ordered. --APAP PRN. --CBC in AM, monitor temp. Chronic diarrhea 09/16/2011 06/07/2014 Labyrinthitis 02/05/2010 06/07/2014 Type 2 diabetes mellitus, uncontrolled 8 02/19/2015 Duodenitis without mention of hemorrhage 06/07/2014 documented as of this encounter (statuses as of 07/04/2022) [facility]2019 History of Past illness Narrative* Problem Noted Date Resolved Date Localized swelling, mass and lump, neck 07/29/19 19 06/05/2020 Family history of cerebrovascular accident (CVA) 01/26/2018 06/05/2020 Subsequent non-ST elevation (NSTEMI) myocardial infarction within 4 weeks of initial infarction 12/25/2014 06/05/2020 Elevated troponin I level 01/29/20132020 Overview: Last Assessment & Plan: --Troponin 0.13 at [facility] and [facility]. --Repeat troponin down to 0.08 --4th troponin pending tonight. --CP free. --Continue CAD management. --Telemetry. Leukocytosis 01/29/2013 06/05/2020 Overview: Last Assessment & Plan: --WBC 11.6 upon admission. --+Febrile 102.3 --Pt denies any fever, illness, exposure, cough --CXR 11/2 negative for any acute process. --UA, urine cx, and blood cx ordered. --APAP PRN. --CBC in AM, monitor temp. Chronic diarrhea 09/16/2011 06/07/2014 Labyrinthitis 02/05/2010 06/07/2014 Type 2 diabetes mellitus, uncontrolled 8 02/19/2015 Duodenitis without mention of hemorrhage 06/07/2014 documented as of this encounter (statuses as of 07/09/2022) [facility] History of Past illness Narrative* Problem Noted Date Resolved Date Localized swelling, mass and lump, neck 07/29/1906/05/2020 Family history of cerebrovascular accident (CVA) 01/26/2018 06/05/2020 Subsequent non-ST elevation (NSTEMI) myocardial infarction within 4 weeks of initial infarction 12/25/2014 06/05/2020 Elevated troponin I level 01/29/20132020 Overview: Last Assessment & Plan: --Troponin 0.13 at [facility] and [facility]. --Repeat troponin down to 0.08 --4th troponin pending tonight. --CP free. --Continue CAD management. --Telemetry. Leukocytosis 01/29/2013 06/05/2020 Overview: Last Assessment & Plan: --WBC 11.6 upon admission. --+Febrile 102.3 --Pt denies any fever, illness, exposure, cough --CXR 11/2 negative for any acute process. --UA, urine cx, and blood cx ordered. --APAP PRN. --CBC in AM, monitor temp. Chronic diarrhea 09/16/2011 06/07/2014 Labyrinthitis 02/05/2010 06/07/2014 Type 2 diabetes mellitus, uncontrolled 8 02/19/2015 Duodenitis without mention of hemorrhage 06/07/2014 documented as of this encounter (statuses as of 07/10/2022) [facility] History of Past illness Narrative* Problem Noted Date Resolved Date Localized swelling, mass and lump, neck 07/29/19 19 06/05/2020 Family history of cerebrovascular accident (CVA) 01/26/2018 06/05/2020 Subsequent non-ST elevation (NSTEMI) myocardial infarction within 4 weeks of initial infarction 12/25/2014 06/05/2020 Elevated troponin I level 01/29/20132020 Overview: Last Assessment & Plan: --Troponin 0.13 at [facility] and [facility]. --Repeat troponin down to 0.08 --4th troponin pending tonight. --CP free. --Continue CAD management. --Telemetry. Leukocytosis 01/29/2013 06/05/2020 Overview: Last Assessment & Plan: --WBC 11.6 upon admission. --+Febrile 102.3 --Pt denies any fever, illness, exposure, cough --CXR 01/29 negative for any acute process. --UA, urine cx, and blood cx ordered. --APAP PRN. --CBC in AM, monitor temp. Chronic diarrhea 09/16/2011 06/07/2014 Labyrinthitis 02/05/2010 06/07/2014 Type 2 diabetes mellitus, uncontrolled 8 02/19/2015 Duodenitis without mention of hemorrhage 06/07/2014 documented as of this encounter (statuses as of 07/10/2022) [facility]2019 History of Past illness Narrative* Problem Noted Date Resolved Date Localized swelling, mass and lump, neck 07/29/19 19 06/05/2020 Family history of cerebrovascular accident (CVA) 01/26/2018 06/05/2020 Subsequent non-ST elevation (NSTEMI) myocardial infarction within 4 weeks of initial infarction 12/25/2014 06/05/2020 Elevated troponin I level 01/29/20132020 Overview: Last Assessment & Plan: --Troponin 0.13 at [facility] and [facility]. --Repeat troponin down to 0.08 --4th troponin pending tonight. --CP free. --Continue CAD management. --Telemetry. Leukocytosis 01/29/2013 06/05/2020 Overview: Last Assessment & Plan: --WBC 11.6 upon admission. --+Febrile 102.3 --Pt denies any fever, illness, exposure, cough --CXR 11/2 negative for any acute process. --UA, urine cx, and blood cx ordered. --APAP PRN. --CBC in AM, monitor temp. Chronic diarrhea 09/16/2011 06/07/2014 Labyrinthitis 02/05/2010 06/07/2014 Type 2 diabetes mellitus, uncontrolled 8 02/19/2015 Duodenitis without mention of hemorrhage 06/07/2014 documented as of this encounter (statuses as of 07/17/2022) [facility] History of Past illness Narrative* Problem Noted Date Resolved Date Localized swelling, mass and lump, neck 07/29/1906/05/2020 Family history of cerebrovascular accident (CVA) 01/26/2018 06/05/2020 Subsequent non-ST elevation (NSTEMI) myocardial infarction within 4 weeks of initial infarction 12/25/2014 06/05/2020 Elevated troponin I level 01/29/20132020 Overview: Last Assessment & Plan: --Troponin 0.13 at [facility] and [facility]. --Repeat troponin down to 0.08 --4th troponin pending tonight. --CP free. --Continue CAD management. --Telemetry. Leukocytosis 01/29/2013 06/05/2020 Overview: Last Assessment & Plan: --WBC 11.6 upon admission. --+Febrile 102.3 --Pt denies any fever, illness, exposure, cough --CXR 11/2 negative for any acute process. --UA, urine cx, and blood cx ordered. --APAP PRN. --CBC in AM, monitor temp. Chronic diarrhea 09/16/2011 06/07/2014 Labyrinthitis 02/05/2010 06/07/2014 Type 2 diabetes mellitus, uncontrolled 8 02/19/2015 Duodenitis without mention of hemorrhage 06/07/2014 documented as of this encounter (statuses as of 07/21/2022) [facility] History of Past illness Narrative* Problem Noted Date Resolved Date Localized swelling, mass and lump, neck 07/29/19 19 06/05/2020 Family history of cerebrovascular accident (CVA) 01/26/2018 06/05/2020 Subsequent non-ST elevation (NSTEMI) myocardial infarction within 4 weeks of initial infarction 12/25/2014 06/05/2020 Elevated troponin I level 01/29/20132020 Overview: Last Assessment & Plan: --Troponin 0.13 at [facility] and [facility]. --Repeat troponin down to 0.08 --4th troponin pending tonight. --CP free. --Continue CAD management. --Telemetry. Leukocytosis 01/29/2013 06/05/2020 Overview: Last Assessment & Plan: --WBC 11.6 upon admission. --+Febrile 102.3 --Pt denies any fever, illness, exposure, cough --CXR 01/29 negative for any acute process. --UA, urine cx, and blood cx ordered. --APAP PRN. --CBC in AM, monitor temp. Chronic diarrhea 09/16/2011 06/07/2014 Labyrinthitis 02/05/2010 06/07/2014 Type 2 diabetes mellitus, uncontrolled 8 02/19/2015 Duodenitis without mention of hemorrhage 06/07/2014 documented as of this encounter (statuses as of 07/24/2022) [facility] History of Past illness Narrative* Problem Noted Date Resolved Date Localized swelling, mass and lump, neck 07/29/1906/05/2020 Family history of cerebrovascular accident (CVA) 01/26/2018 06/05/2020 Subsequent non-ST elevation (NSTEMI) myocardial infarction within 4 weeks of initial infarction 12/25/2014 06/05/2020 Elevated troponin I level 01/29/20132020 Overview: Last Assessment & Plan: --Troponin 0.13 at [facility] and [facility]. --Repeat troponin down to 0.08 --4th troponin pending tonight. --CP free. --Continue CAD management. --Telemetry. Leukocytosis 01/29/2013 06/05/2020 Overview: Last Assessment & Plan: --WBC 11.6 upon admission. --+Febrile 102.3 --Pt denies any fever, illness, exposure, cough --CXR 11/2 negative for any acute process. --UA, urine cx, and blood cx ordered. --APAP PRN. --CBC in AM, monitor temp. Chronic diarrhea 09/16/2011 06/07/2014 Labyrinthitis 02/05/2010 06/07/2014 Type 2 diabetes mellitus, uncontrolled 8 02/19/2015 Duodenitis without mention of hemorrhage 06/07/2014 documented as of this encounter (statuses as of 07/24/2022) [facility] History of Past illness Narrative* Problem Noted Date Resolved Date Localized swelling, mass and lump, neck 07/29/19 19 06/05/2020 Family history of cerebrovascular accident (CVA) 01/26/2018 06/05/2020 Subsequent non-ST elevation (NSTEMI) myocardial infarction within 4 weeks of initial infarction 12/25/2014 06/05/2020 Elevated troponin I level 01/29/20132020 Overview: Last Assessment & Plan: --Troponin 0.13 at [facility] and [facility]. --Repeat troponin down to 0.08 --4th troponin pending tonight. --CP free. --Continue CAD management. --Telemetry. Leukocytosis 01/29/2013 06/05/2020 Overview: Last Assessment & Plan: --WBC 11.6 upon admission. --+Febrile 102.3 --Pt denies any fever, illness, exposure, cough --CXR 11/2 negative for any acute process. --UA, urine cx, and blood cx ordered. --APAP PRN. --CBC in AM, monitor temp. Chronic diarrhea 09/16/2011 06/07/2014 Labyrinthitis 02/05/2010 06/07/2014 Type 2 diabetes mellitus, uncontrolled 8 02/19/2015 Duodenitis without mention of hemorrhage 06/07/2014 documented as of this encounter (statuses as of 07/30/2022) [facility] History of Past illness Narrative* Problem Noted Date Resolved Date Localized swelling, mass and lump, neck 07/29/1906/05/2020 Family history of cerebrovascular accident (CVA) 01/26/2018 06/05/2020 Subsequent non-ST elevation (NSTEMI) myocardial infarction within 4 weeks of initial infarction 12/25/2014 06/05/2020 Elevated troponin I level 01/29/20132020 Overview: Last Assessment & Plan: --Troponin 0.13 at [facility] and [facility]. --Repeat troponin down to 0.08 --4th troponin pending tonight. --CP free. --Continue CAD management. --Telemetry. Leukocytosis 01/29/2013 06/05/2020 Overview: Last Assessment & Plan: --WBC 11.6 upon admission. --+Febrile 102.3 --Pt denies any fever, illness, exposure, cough --CXR 01/29 negative for any acute process. --UA, urine cx, and blood cx ordered. --APAP PRN. --CBC in AM, monitor temp. Chronic diarrhea 09/16/2011 06/07/2014 Labyrinthitis 02/05/2010 06/07/2014 Type 2 diabetes mellitus, uncontrolled 8 02/19/2015 Duodenitis without mention of hemorrhage 06/07/2014 documented as of this encounter (statuses as of 07/31/2022) [facility] History of Past illness Narrative* Problem Noted Date Resolved Date Localized swelling, mass and lump, neck 07/29/19 19 06/05/2020 Family history of cerebrovascular accident (CVA) 01/26/2018 06/05/2020 Subsequent non-ST elevation (NSTEMI) myocardial infarction within 4 weeks of initial infarction 12/25/2014 06/05/2020 Elevated troponin I level 01/29/20132020 Overview: Last Assessment & Plan: --Troponin 0.13 at [facility] and [facility]. --Repeat troponin down to 0.08 --4th troponin pending tonight. --CP free. --Continue CAD management. --Telemetry. Leukocytosis 01/29/2013 06/05/2020 Overview: Last Assessment & Plan: --WBC 11.6 upon admission. --+Febrile 102.3 --Pt denies any fever, illness, exposure, cough --CXR 01/29 negative for any acute process. --UA, urine cx, and blood cx ordered. --APAP PRN. --CBC in AM, monitor temp. Chronic diarrhea 09/16/2011 06/07/2014 Labyrinthitis 02/05/2010 06/07/2014 Type 2 diabetes mellitus, uncontrolled 8 02/19/2015 Duodenitis without mention of hemorrhage 06/07/2014 documented as of this encounter (statuses as of 08/05/2022) [facility] History of Past illness Narrative* Problem Noted Date Resolved Date Localized swelling, mass and lump, neck 07/29/19 19 06/05/2020 Family history of cerebrovascular accident (CVA) 01/26/2018 06/05/2020 Subsequent non-ST elevation (NSTEMI) myocardial infarction within 4 weeks of initial infarction 12/25/2014 06/05/2020 Elevated troponin I level 01/29/20132020 Overview: Last Assessment & Plan: --Troponin 0.13 at [facility] and [facility]. --Repeat troponin down to 0.08 --4th troponin pending tonight. --CP free. --Continue CAD management. --Telemetry. Leukocytosis 01/29/2013 06/05/2020 Overview: Last Assessment & Plan: --WBC 11.6 upon admission. --+Febrile 102.3 --Pt denies any fever, illness, exposure, cough --CXR 11/2 negative for any acute process. --UA, urine cx, and blood cx ordered. --APAP PRN. --CBC in AM, monitor temp. Chronic diarrhea 09/16/2011 06/07/2014 Labyrinthitis 02/05/2010 06/07/2014 Type 2 diabetes mellitus, uncontrolled 8 02/19/2015 Duodenitis without mention of hemorrhage 06/07/2014 documented as of this encounter (statuses as of 09/03/2022) [facility]05-[facility]-2019 History of Past illness Narrative* Problem Noted Date Resolved Date Localized swelling, mass and lump, neck 07/29/1906/05/2020 Family history of cerebrovascular accident (CVA) 01/26/2018 06/05/2020 Subsequent non-ST elevation (NSTEMI) myocardial infarction within 4 weeks of initial infarction 12/25/2014 06/05/2020 Elevated troponin I level 01/29/20132020 Overview: Last Assessment & Plan: --Troponin 0.13 at [facility] and 0.14 in [facility]. --Repeat troponin down to 0.08 --4th troponin pending tonight. --CP free. --Continue CAD management. --Telemetry. Leukocytosis 01/29/2013 06/05/2020 Overview: Last Assessment & Plan: --WBC 11.6 upon admission. --+Febrile 102.3 --Pt denies any fever, illness, exposure, cough --CXR 11/2 negative for any acute process. --UA, urine cx, and blood cx ordered. --APAP PRN. --CBC in AM, monitor temp. Chronic diarrhea 09/16/2011 06/07/2014 Labyrinthitis 02/05/2010 06/07/2014 Type 2 diabetes mellitus, uncontrolled 8 02/19/2015 Duodenitis without mention of hemorrhage 06/07/2014 documented as of this encounter (statuses as of 09/18/2022) [facility]05-01-2019 History of Past illness Narrative* Problem Noted Date Resolved Date Localized swelling, mass and lump, neck 07/29/19 19 06/05/2020 Family history of cerebrovascular accident (CVA) 01/26/2018 06/05/2020 Subsequent non-ST elevation (NSTEMI) myocardial infarction within 4 weeks of initial infarction 12/25/2014 06/05/2020 Elevated troponin I level 01/29/20132020 Overview: Last Assessment & Plan: --Troponin 0.13 at [facility] and 0[facility]. --Repeat troponin down to 0.08 --4th troponin pending tonight. --CP free. --Continue CAD management. --Telemetry. Leukocytosis 01/29/2013 06/05/2020 Overview: Last Assessment & Plan: --WBC 11.6 upon admission. --+Febrile 102.3 --Pt denies any fever, illness, exposure, cough --CXR 01/29 negative for any acute process. --UA, urine cx, and blood cx ordered. --APAP PRN. --CBC in AM, monitor temp. Chronic diarrhea 09/16/2011 06/07/2014 Labyrinthitis 02/05/2010 06/07/2014 Type 2 diabetes mellitus, uncontrolled 8 02/19/2015 Duodenitis without mention of hemorrhage 06/07/2014 documented as of this encounter (statuses as of 09/18/2022) [facility]05-01[facility]2019 History of Past illness Narrative* Problem Noted Date Resolved Date Localized swelling, mass and lump, neck 07/29/19 19 06/05/2020 Family history of cerebrovascular accident (CVA) 01/26/2018 06/05/2020 Subsequent non-ST elevation (NSTEMI) myocardial infarction within 4 weeks of initial infarction 12/25/2014 06/05/2020 Elevated troponin I level 01/29/20132020 Overview: Last Assessment & Plan: --Troponin 0.13 at [facility] and 0[facility]. --Repeat troponin down to 0.08 --4th troponin pending tonight. --CP free. --Continue CAD management. --Telemetry. Leukocytosis 01/29/2013 06/05/2020 Overview: Last Assessment & Plan: --WBC 11.6 upon admission. --+Febrile 102.3 --Pt denies any fever, illness, exposure, cough --CXR 11/2 negative for any acute process. --UA, urine cx, and blood cx ordered. --APAP PRN. --CBC in AM, monitor temp. Chronic diarrhea 09/16/2011 06/07/2014 Labyrinthitis 02/05/2010 06/07/2014 Type 2 diabetes mellitus, uncontrolled 8 02/19/2015 Duodenitis without mention of hemorrhage 06/07/2014 documented as of this encounter (statuses as of 09/20/2022) [facility]05-01[facility]2019 History of Past illness Narrative* Problem Noted Date Resolved Date Localized swelling, mass and lump, neck 07/29/19 19 06/05/2020 Family history of cerebrovascular accident (CVA) 01/26/2018 06/05/2020 Subsequent non-ST elevation (NSTEMI) myocardial infarction within 4 weeks of initial infarction 12/25/2014 06/05/2020 Elevated troponin I level 01/29/20132020 Overview: Last Assessment & Plan: --Troponin 0.13 at [facility] and [facility]. --Repeat troponin down to 0.08 --4th troponin pending tonight. --CP free. --Continue CAD management. --Telemetry. Leukocytosis 01/29/2013 06/05/2020 Overview: Last Assessment & Plan: --WBC 11.6 upon admission. --+Febrile 102.3 --Pt denies any fever, illness, exposure, cough --CXR 11/2 negative for any acute process. --UA, urine cx, and blood cx ordered. --APAP PRN. --CBC in AM, monitor temp. Chronic diarrhea 09/16/2011 06/07/2014 Labyrinthitis 02/05/2010 06/07/2014 Type 2 diabetes mellitus, uncontrolled 8 02/19/2015 Duodenitis without mention of hemorrhage 06/07/2014 documented as of this encounter (statuses as of 09/22/2022) [facility]05-01[facility]2019 History of Past illness Narrative* Problem Noted Date Resolved Date Localized swelling, mass and lump, neck 07/29/19 19 06/05/2020 Family history of cerebrovascular accident (CVA) 01/26/2018 06/05/2020 Subsequent non-ST elevation (NSTEMI) myocardial infarction within 4 weeks of initial infarction 12/25/2014 06/05/2020 Elevated troponin I level 01/29/20132020 Overview: Last Assessment & Plan: --Troponin 0.13 at [facility] and [facility]. --Repeat troponin down to 0.08 --4th troponin pending tonight. --CP free. --Continue CAD management. --Telemetry. Leukocytosis 01/29/2013 06/05/2020 Overview: Last Assessment & Plan: --WBC 11.6 upon admission. --+Febrile 102.3 --Pt denies any fever, illness, exposure, cough --CXR 01/29 negative for any acute process. --UA, urine cx, and blood cx ordered. --APAP PRN. --CBC in AM, monitor temp. Chronic diarrhea 09/16/2011 06/07/2014 Labyrinthitis 02/05/2010 06/07/2014 Type 2 diabetes mellitus, uncontrolled 8 02/19/2015 Duodenitis without mention of hemorrhage 06/07/2014 documented as of this encounter (statuses as of 10/01/2022) [facility]05-01[facility]2019 History of Past illness Narrative* Problem Noted Date Diagnosed Date Resolved Date Localized swelling, mass and lump, neck 07/28/2018 06/05/2020 Family history of cerebrovas cular accident (CVA) 01/26/2018 06/05/2020 Subsequent non-ST elevation (NSTEMI) myocardial infarction within 4 weeks of initial infarction 12/25/2014 06/05/2020 Elevated troponin I level 01/29/2013 Overview: Last Assessment & Plan: --Troponin 0.13 at [facility] and [facility]. --Repeat troponin down to 0.08 --4th troponin pending tonight. --CP free. --Continue CAD management. --Telemetry. Leukocytosis 01/29/2013 06/05/2020 Overview: Last Assessment & Plan: --WBC 11.6 upon admission. --+Febrile 102.3 --Pt denies any fever, illness, exposure, cough --CXR 01/29 negative for any acute process. --UA, urine cx, and blood cx ordered. --APAP PRN. --CBC in AM, monitor temp. Chronic diarrhea 09/16/2011 06/07/2014 Labyrinthitis 02/05/2010 06/07/2014 Type 2 diabetes mellitus, uncontrolled 02/16/2008 02/19/2015 Duodenitis without mention of hemorrhage 06/07/2014 documented as of this encounter (statuses as of 10/15/2022) [facility]05-01[facility]2019 History of Past illness Narrative* Problem Noted Date Diagnosed Date Resolved Date Localized swelling, mass and lump, neck 07/28/2018 06/05/2020 Family history of cerebrovas cular accident (CVA) 01/26/2018 06/05/2020 Subsequent non-ST elevation (NSTEMI) myocardial infarction within 4 weeks of initial infarction 12/25/2014 06/05/2020 Elevated troponin I level 01/29/2013 Overview: Last Assessment & Plan: --Troponin 0.13 at [facility] and [facility]. --Repeat troponin down to 0.08 --4th troponin pending tonight. --CP free. --Continue CAD management. --Telemetry. Leukocytosis 01/29/2013 06/05/2020 Overview: Last Assessment & Plan: --WBC 11.6 upon admission. --+Febrile 102.3 --Pt denies any fever, illness, exposure, cough --CXR /2 negative for any acute process. --UA, urine cx, and blood cx ordered. --APAP PRN. --CBC in AM, monitor temp. Chronic diarrhea 09/16/2011 06/07/2014 Labyrinthitis 02/05/2010 06/07/2014 Type 2 diabetes mellitus, uncontrolled 02/16/2008 02/19/2015 Duodenitis without mention of hemorrhage 06/07/2014 documented as of this encounter (statuses as of 10/20/2022) [facility]05-01[facility]2019 History of Past illness Narrative* Problem Noted Date Diagnosed Date Resolved Date Localized swelling, mass and lump, neck 07/28/2018 06/05/2020 Family history of cerebrovas cular accident (CVA) 01/26/2018 06/05/2020 Subsequent non-ST elevation (NSTEMI) myocardial infarction within 4 weeks of initial infarction 12/25/2014 06/05/2020 Elevated troponin I level 01/29/2013 Overview: Last Assessment & Plan: --Troponin 0.13 at [facility] and [facility]. --Repeat troponin down to 0.08 --4th troponin pending tonight. --CP free. --Continue CAD management. --Telemetry. Leukocytosis 01/29/2013 06/05/2020 Overview: Last Assessment & Plan: --WBC 11.6 upon admission. --+Febrile 102.3 --Pt denies any fever, illness, exposure, cough --CXR 01/29 negative for any acute process. --UA, urine cx, and blood cx ordered. --APAP PRN. --CBC in AM, monitor temp. Chronic diarrhea 09/16/2011 06/07/2014 Labyrinthitis 02/05/2010 06/07/2014 Type 2 diabetes mellitus, uncontrolled 02/16/2008 02/19/2015 Duodenitis without mention of hemorrhage 06/07/2014 documented as of this encounter (statuses as of 10/27/2022) [facility]05-01[facility]2019 History of Past illness Narrative* Problem Noted Date Diagnosed Date Resolved Date Localized swelling, mass and lump, neck 07/28/2018 06/05/2020 Family history of cerebrovas cular accident (CVA) 01/26/2018 06/05/2020 Subsequent non-ST elevation (NSTEMI) myocardial infarction within 4 weeks of initial infarction 12/25/2014 06/05/2020 Elevated troponin I level 01/29/2013 Overview: Last Assessment & Plan: --Troponin 0.13 at [facility] and [facility]. --Repeat troponin down to 0.08 --4th troponin pending tonight. --CP free. --Continue CAD management. --Telemetry. Leukocytosis 01/29/2013 06/05/2020 Overview: Last Assessment & Plan: --WBC 11.6 upon admission. --+Febrile 102.3 --Pt denies any fever, illness, exposure, cough --CXR 01/29 negative for any acute process. --UA, urine cx, and blood cx ordered. --APAP PRN. --CBC in AM, monitor temp. Chronic diarrhea 09/16/2011 06/07/2014 Labyrinthitis 02/05/2010 06/07/2014 Type 2 diabetes mellitus, uncontrolled 02/16/2008 02/19/2015 Duodenitis without mention of hemorrhage 06/07/2014 documented as of this encounter (statuses as of 10/28/2022) [facility]05-[facility]2019 History of Past illness Narrative* Problem Noted Date Diagnosed Date Resolved Date Localized swelling, mass and lump, neck 07/28/2018 06/05/2020 Family history of cerebrovas cular accident (CVA) 01/26/2018 06/05/2020 Subsequent non-ST elevation (NSTEMI) myocardial infarction within 4 weeks of initial infarction 12/25/2014 06/05/2020 Elevated troponin I level 01/29/2013 Overview: Last Assessment & Plan: --Troponin 0.13 at [facility] and [facility]. --Repeat troponin down to 0.08 --4th troponin pending tonight. --CP free. --Continue CAD management. --Telemetry. Leukocytosis 01/29/2013 06/05/2020 Overview: Last Assessment & Plan: --WBC 11.6 upon admission. --+Febrile 102.3 --Pt denies any fever, illness, exposure, cough --CXR 2 negative for any acute process. --UA, urine cx, and blood cx ordered. --APAP PRN. --CBC in AM, monitor temp. Chronic diarrhea 09/16/2011 06/07/2014 Labyrinthitis 02/05/2010 06/07/2014 Type 2 diabetes mellitus, uncontrolled 02/16/2008 02/19/2015 Duodenitis without mention of hemorrhage 06/07/2014 documented as of this encounter (statuses as of 10/28/2022) [facility]05[facility]2019 History of Past illness Narrative* Problem Noted Date Diagnosed Date Resolved Date Localized swelling, mass and lump, neck 07/28/2018 06/05/2020 Family history of cerebrovas cular accident (CVA) 01/26/2018 06/05/2020 Subsequent non-ST elevation (NSTEMI) myocardial infarction within 4 weeks of initial infarction 12/25/2014 06/05/2020 Elevated troponin I level 01/29/2013 Overview: Last Assessment & Plan: --Troponin 0.13 at [facility] and [facility]. --Repeat troponin down to 0.08 --4th troponin pending tonight. --CP free. --Continue CAD management. --Telemetry. Leukocytosis 01/29/2013 06/05/2020 Overview: Last Assessment & Plan: --WBC 11.6 upon admission. --+Febrile 102.3 --Pt denies any fever, illness, exposure, cough --CXR 112 negative for any acute process. --UA, urine cx, and blood cx ordered. --APAP PRN. --CBC in AM, monitor temp. Chronic diarrhea 09/16/2011 06/07/2014 Labyrinthitis 02/05/2010 06/07/2014 Type 2 diabetes mellitus, uncontrolled 02/16/2008 02/19/2015 Duodenitis without mention of hemorrhage 06/07/2014 documented as of this encounter (statuses as of 10/29/2022) [facility]05-[facility]2019 History of Past illness Narrative* Problem Noted Date Diagnosed Date Resolved Date Localized swelling, mass and lump, neck 07/28/2018 06/05/2020 Family history of cerebrovas cular accident (CVA) 01/26/2018 06/05/2020 Subsequent non-ST elevation (NSTEMI) myocardial infarction within 4 weeks of initial infarction 12/25/2014 06/05/2020 Elevated troponin I level 01/29/2013 Overview: Last Assessment & Plan: --Troponin 0.13 at [facility] and [facility]. --Repeat troponin down to 0.08 --4th troponin pending tonight. --CP free. --Continue CAD management. --Telemetry. Leukocytosis 01/29/2013 06/05/2020 Overview: Last Assessment & Plan: --WBC 11.6 upon admission. --+Febrile 102.3 --Pt denies any fever, illness, exposure, cough --CXR 01/29 negative for any acute process. --UA, urine cx, and blood cx ordered. --APAP PRN. --CBC in AM, monitor temp. Chronic diarrhea 09/16/2011 06/07/2014 Labyrinthitis 02/05/2010 06/07/2014 Type 2 diabetes mellitus, uncontrolled 02/16/2008 02/19/2015 Duodenitis without mention of hemorrhage 06/07/2014 documented as of this encounter (statuses as of 10/31/2022) [facility]05-01[facility]2019 History of Past illness Narrative* Problem Noted Date Diagnosed Date Resolved Date Localized swelling, mass and lump, neck 07/28/2018 06/05/2020 Family history of cerebrovas cular accident (CVA) 01/26/2018 06/05/2020 Subsequent non-ST elevation (NSTEMI) myocardial infarction within 4 weeks of initial infarction 12/25/2014 06/05/2020 Elevated troponin I level 01/29/2013 Overview: Last Assessment & Plan: --Troponin 0.13 at [facility] and [facility]. --Repeat troponin down to 0.08 --4th troponin pending tonight. --CP free. --Continue CAD management. --Telemetry. Leukocytosis 01/29/2013 06/05/2020 Overview: Last Assessment & Plan: --WBC 11.6 upon admission. --+Febrile 102.3 --Pt denies any fever, illness, exposure, cough --CXR 11/2 negative for any acute process. --UA, urine cx, and blood cx ordered. --APAP PRN. --CBC in AM, monitor temp. Chronic diarrhea 09/16/2011 06/07/2014 Labyrinthitis 02/05/2010 06/07/2014 Type 2 diabetes mellitus, uncontrolled 02/16/2008 02/19/2015 Duodenitis without mention of hemorrhage 06/07/2014 documented as of this encounter (statuses as of 11/08/2022) [facility]05-01[facility]2019 History of Past illness Narrative* Problem Noted Date Diagnosed Date Resolved Date Localized swelling, mass and lump, neck 07/28/2018 06/05/2020 Family history of cerebrovas cular accident (CVA) 01/26/2018 06/05/2020 Subsequent non-ST elevation (NSTEMI) myocardial infarction within 4 weeks of initial infarction 12/25/2014 06/05/2020 Elevated troponin I level 01/29/2013 Overview: Last Assessment & Plan: --Troponin 0.13 at [facility] and [facility]. --Repeat troponin down to 0.08 --4th troponin pending tonight. --CP free. --Continue CAD management. --Telemetry. Leukocytosis 01/29/2013 06/05/2020 Overview: Last Assessment & Plan: --WBC 11.6 upon admission. --+Febrile 102.3 --Pt denies any fever, illness, exposure, cough --CXR 11/2 negative for any acute process. --UA, urine cx, and blood cx ordered. --APAP PRN. --CBC in AM, monitor temp. Chronic diarrhea 09/16/2011 06/07/2014 Labyrinthitis 02/05/2010 06/07/2014 Type 2 diabetes mellitus, uncontrolled 02/16/2008 02/19/2015 Duodenitis without mention of hemorrhage 06/07/2014 documented as of this encounter (statuses as of 11/11/2022) [facility]05[facility]2019 History of Past illness Narrative* Problem Noted Date Diagnosed Date Resolved Date Localized swelling, mass and lump, neck 07/28/2018 06/05/2020 Family history of cerebrovas cular accident (CVA) 01/26/2018 06/05/2020 Subsequent non-ST elevation (NSTEMI) myocardial infarction within 4 weeks of initial infarction 12/25/2014 06/05/2020 Elevated troponin I level 01/29/2013 Overview: Last Assessment & Plan: --Troponin 0.13 at [facility] and [facility]. --Repeat troponin down to 0.08 --4th troponin pending tonight. --CP free. --Continue CAD management. --Telemetry. Leukocytosis 01/29/2013 06/05/2020 Overview: Last Assessment & Plan: --WBC 11.6 upon admission. --+Febrile 102.3 --Pt denies any fever, illness, exposure, cough --CXR 01/29 negative for any acute process. --UA, urine cx, and blood cx ordered. --APAP PRN. --CBC in AM, monitor temp. Chronic diarrhea 09/16/2011 06/07/2014 Labyrinthitis 02/05/2010 06/07/2014 Type 2 diabetes mellitus, uncontrolled 02/16/2008 02/19/2015 Duodenitis without mention of hemorrhage 06/07/2014 documented as of this encounter (statuses as of 11/11/2022) [facility]2019 History of Past illness Narrative* Problem Noted Date Diagnosed Date Resolved Date Localized swelling, mass and lump, neck 07/28/2018 06/05/2020 Family history of cerebrovas cular accident (CVA) 01/26/2018 06/05/2020 Subsequent non-ST elevation (NSTEMI) myocardial infarction within 4 weeks of initial infarction 12/25/2014 06/05/2020 Elevated troponin I level 01/29/2013 Overview: Last Assessment & Plan: --Troponin 0.13 at [facility] and [facility]. --Repeat troponin down to 0.08 --4th troponin pending tonight. --CP free. --Continue CAD management. --Telemetry. Leukocytosis 01/29/2013 06/05/2020 Overview: Last Assessment & Plan: --WBC 11.6 upon admission. --+Febrile 102.3 --Pt denies any fever, illness, exposure, cough --CXR /2 negative for any acute process. --UA, urine cx, and blood cx ordered. --APAP PRN. --CBC in AM, monitor temp. Chronic diarrhea 09/16/2011 06/07/2014 Labyrinthitis 02/05/2010 06/07/2014 Type 2 diabetes mellitus, uncontrolled 02/16/2008 02/19/2015 Duodenitis without mention of hemorrhage 06/07/2014 documented as of this encounter (statuses as of 11/12/2022) [facility] History of Past illness Narrative* Problem Noted Date Diagnosed Date Resolved Date Localized swelling, mass and lump, neck 07/28/2018 06/05/2020 Family history of cerebrovas cular accident (CVA) 01/26/2018 06/05/2020 Subsequent non-ST elevation (NSTEMI) myocardial infarction within 4 weeks of initial infarction 12/25/2014 06/05/2020 Elevated troponin I level 01/29/2013 Overview: Last Assessment & Plan: --Troponin 0.13 at [facility] and [facility]. --Repeat troponin down to 0.08 --4th troponin pending tonight. --CP free. --Continue CAD management. --Telemetry. Leukocytosis 01/29/2013 06/05/2020 Overview: Last Assessment & Plan: --WBC 11.6 upon admission. --+Febrile 102.3 --Pt denies any fever, illness, exposure, cough --CXR /2 negative for any acute process. --UA, urine cx, and blood cx ordered. --APAP PRN. --CBC in AM, monitor temp. Chronic diarrhea 09/16/2011 06/07/2014 Labyrinthitis 02/05/2010 06/07/2014 Type 2 diabetes mellitus, uncontrolled 02/16/2008 02/19/2015 Duodenitis without mention of hemorrhage 06/07/2014 documented as of this encounter (statuses as of 11/12/2022) [facility]2019 History of Past illness Narrative* Problem Noted Date Diagnosed Date Resolved Date Localized swelling, mass and lump, neck 07/28/2018 06/05/2020 Family history of cerebrovas cular accident (CVA) 01/26/2018 06/05/2020 Subsequent non-ST elevation (NSTEMI) myocardial infarction within 4 weeks of initial infarction 12/25/2014 06/05/2020 Elevated troponin I level 01/29/2013 Overview: Last Assessment & Plan: --Troponin 0.13 at [facility] and [facility]. --Repeat troponin down to 0.08 --4th troponin pending tonight. --CP free. --Continue CAD management. --Telemetry. Leukocytosis 01/29/2013 06/05/2020 Overview: Last Assessment & Plan: --WBC 11.6 upon admission. --+Febrile 102.3 --Pt denies any fever, illness, exposure, cough --CXR 01/29 negative for any acute process. --UA, urine cx, and blood cx ordered. --APAP PRN. --CBC in AM, monitor temp. Chronic diarrhea 09/16/2011 06/07/2014 Labyrinthitis 02/05/2010 06/07/2014 Type 2 diabetes mellitus, uncontrolled 02/16/2008 02/19/2015 Duodenitis without mention of hemorrhage 06/07/2014 documented as of this encounter (statuses as of 11/13/2022) [facility] History of Past illness Narrative* Problem Noted Date Diagnosed Date Resolved Date Localized swelling, mass and lump, neck 07/28/2018 06/05/2020 Family history of cerebrovas cular accident (CVA) 01/26/2018 06/05/2020 Subsequent non-ST elevation (NSTEMI) myocardial infarction within 4 weeks of initial infarction 12/25/2014 06/05/2020 Elevated troponin I level 01/29/2013 Overview: Last Assessment & Plan: --Troponin 0.13 at [facility] and [facility]. --Repeat troponin down to 0.08 --4th troponin pending tonight. --CP free. --Continue CAD management. --Telemetry. Leukocytosis 01/29/2013 06/05/2020 Overview: Last Assessment & Plan: --WBC 11.6 upon admission. --+Febrile 102.3 --Pt denies any fever, illness, exposure, cough --CXR 01/29 negative for any acute process. --UA, urine cx, and blood cx ordered. --APAP PRN. --CBC in AM, monitor temp. Chronic diarrhea 09/16/2011 06/07/2014 Labyrinthitis 02/05/2010 06/07/2014 Type 2 diabetes mellitus, uncontrolled 02/16/2008 02/19/2015 Duodenitis without mention of hemorrhage 06/07/2014 documented as of this encounter (statuses as of 11/18/2022) [facility] History of Past illness Narrative* Problem Noted Date Diagnosed Date Resolved Date Localized swelling, mass and lump, neck 07/28/2018 06/05/2020 Family history of cerebrovas cular accident (CVA) 01/26/2018 06/05/2020 Subsequent non-ST elevation (NSTEMI) myocardial infarction within 4 weeks of initial infarction 12/25/2014 06/05/2020 Elevated troponin I level 01/29/2013 Overview: Last Assessment & Plan: --Troponin 0.13 at [facility] and [facility]. --Repeat troponin down to 0.08 --4th troponin pending tonight. --CP free. --Continue CAD management. --Telemetry. Leukocytosis 01/29/2013 06/05/2020 Overview: Last Assessment & Plan: --WBC 11.6 upon admission. --+Febrile 102.3 --Pt denies any fever, illness, exposure, cough --CXR 11/2 negative for any acute process. --UA, urine cx, and blood cx ordered. --APAP PRN. --CBC in AM, monitor temp. Chronic diarrhea 09/16/2011 06/07/2014 Labyrinthitis 02/05/2010 06/07/2014 Type 2 diabetes mellitus, uncontrolled 02/16/2008 02/19/2015 Duodenitis without mention of hemorrhage 06/07/2014 documented as of this encounter (statuses as of 11/18/2022) [facility] History of Past illness Narrative* Problem Noted Date Diagnosed Date Resolved Date Localized swelling, mass and lump, neck 07/28/2018 06/05/2020 Family history of cerebrovas cular accident (CVA) 01/26/2018 06/05/2020 Subsequent non-ST elevation (NSTEMI) myocardial infarction within 4 weeks of initial infarction 12/25/2014 06/05/2020 Elevated troponin I level 01/29/2013 Overview: Last Assessment & Plan: --Troponin 0.13 at [facility] and [facility]. --Repeat troponin down to 0.08 --4th troponin pending tonight. --CP free. --Continue CAD management. --Telemetry. Leukocytosis 01/29/2013 06/05/2020 Overview: Last Assessment & Plan: --WBC 11.6 upon admission. --+Febrile 102.3 --Pt denies any fever, illness, exposure, cough --CXR 11/2 negative for any acute process. --UA, urine cx, and blood cx ordered. --APAP PRN. --CBC in AM, monitor temp. Chronic diarrhea 09/16/2011 06/07/2014 Labyrinthitis 02/05/2010 06/07/2014 Type 2 diabetes mellitus, uncontrolled 02/16/2008 02/19/2015 Duodenitis without mention of hemorrhage 06/07/2014 documented as of this encounter (statuses as of 11/22/2022) [facility] History of Past illness Narrative* Problem Noted Date Diagnosed Date Resolved Date Localized swelling, mass and lump, neck 07/28/2018 06/05/2020 Family history of cerebrovas cular accident (CVA) 01/26/2018 06/05/2020 Subsequent non-ST elevation (NSTEMI) myocardial infarction within 4 weeks of initial infarction 12/25/2014 06/05/2020 Elevated troponin I level 01/29/2013 Overview: Last Assessment & Plan: --Trop[facility] 0.13 at [facility] and 0.[facility]. --Repeat troponin down to 0.08 --4th troponin pending tonight. --CP free. --Continue CAD management. --Telemetry. Leukocytosis 01/29/2013 06/05/2020 Overview: Last Assessment & Plan: --WBC 11.6 upon admission. --+Febrile 102.3 --Pt denies any fever, illness, exposure, cough --CXR 01/29 negative for any acute process. --UA, urine cx, and blood cx ordered. --APAP PRN. --CBC in AM, monitor temp. Chronic diarrhea 09/16/2011 06/07/2014 Labyrinthitis 02/05/2010 06/07/2014 Type 2 diabetes mellitus, uncontrolled 02/16/2008 02/19/2015 Duodenitis without mention of hemorrhage 06/07/2014 documented as of this encounter (statuses as of 11/28/2022) [facility]05-01-2019 History of Past illness Narrative* Problem Noted Date Diagnosed Date Resolved Date Localized swelling, mass and lump, neck 07/28/2018 06/05/2020 Family history of cerebrovas cular accident (CVA) 01/26/2018 06/05/2020 Subsequent non-ST elevation (NSTEMI) myocardial infarction within 4 weeks of initial infarction 12/25/2014 06/05/2020 Elevated troponin I level 01/29/2013 Overview: Last Assessment & Plan: --Troponin 0.13 at [facility] and 0[facility]. --Repeat troponin down to 0.08 --4th troponin pending tonight. --CP free. --Continue CAD management. --Telemetry. Leukocytosis 01/29/2013 06/05/2020 Overview: Last Assessment & Plan: --WBC 11.6 upon admission. --+Febrile 102.3 --Pt denies any fever, illness, exposure, cough --CXR 11/2 negative for any acute process. --UA, urine cx, and blood cx ordered. --APAP PRN. --CBC in AM, monitor temp. Chronic diarrhea 09/16/2011 06/07/2014 Labyrinthitis 02/05/2010 06/07/2014 Type 2 diabetes mellitus, uncontrolled 02/16/2008 02/19/2015 Duodenitis without mention of hemorrhage 06/07/2014 documented as of this encounter (statuses as of 12/04/2022) [facility]2019 History of Past illness Narrative* Problem Noted Date Diagnosed Date Resolved Date Localized swelling, mass and lump, neck 07/28/2018 06/05/2020 Family history of cerebrovas cular accident (CVA) 01/26/2018 06/05/2020 Subsequent non-ST elevation (NSTEMI) myocardial infarction within 4 weeks of initial infarction 12/25/2014 06/05/2020 Elevated troponin I level 01/29/2013 Overview: Last Assessment & Plan: --Troponin 0.13 at [facility] and [facility]. --Repeat troponin down to 0.08 --4th troponin pending tonight. --CP free. --Continue CAD management. --Telemetry. Leukocytosis 01/29/2013 06/05/2020 Overview: Last Assessment & Plan: --WBC 11.6 upon admission. --+Febrile 102.3 --Pt denies any fever, illness, exposure, cough --CXR 11/2 negative for any acute process. --UA, urine cx, and blood cx ordered. --APAP PRN. --CBC in AM, monitor temp. Chronic diarrhea 09/16/2011 06/07/2014 Labyrinthitis 02/05/2010 06/07/2014 Type 2 diabetes mellitus, uncontrolled 02/16/2008 02/19/2015 Duodenitis without mention of hemorrhage 06/07/2014 documented as of this encounter (statuses as of 12/06/2022) [facility] History of Past illness Narrative* Problem Noted Date Diagnosed Date Resolved Date Localized swelling, mass and lump, neck 07/28/2018 06/05/2020 Family history of cerebrovas cular accident (CVA) 01/26/2018 06/05/2020 Subsequent non-ST elevation (NSTEMI) myocardial infarction within 4 weeks of initial infarction 12/25/2014 06/05/2020 Elevated troponin I level 01/29/2013 Overview: Last Assessment & Plan: --Troponin 0.13 at [facility] and [facility]. --Repeat troponin down to 0.08 --4th troponin pending tonight. --CP free. --Continue CAD management. --Telemetry. Leukocytosis 01/29/2013 06/05/2020 Overview: Last Assessment & Plan: --WBC 11.6 upon admission. --+Febrile 102.3 --Pt denies any fever, illness, exposure, cough --CXR 01/29 negative for any acute process. --UA, urine cx, and blood cx ordered. --APAP PRN. --CBC in AM, monitor temp. Chronic diarrhea 09/16/2011 06/07/2014 Labyrinthitis 02/05/2010 06/07/2014 Type 2 diabetes mellitus, uncontrolled 02/16/2008 02/19/2015 Duodenitis without mention of hemorrhage 06/07/2014 documented as of this encounter (statuses as of 12/13/2022) [facility] History of Past illness Narrative* Problem Noted Date Diagnosed Date Resolved Date Localized swelling, mass and lump, neck 07/28/2018 06/05/2020 Family history of cerebrovas cular accident (CVA) 01/26/2018 06/05/2020 Subsequent non-ST elevation (NSTEMI) myocardial infarction within 4 weeks of initial infarction 12/25/2014 06/05/2020 Elevated troponin I level 01/29/2013 Overview: Last Assessment & Plan: --Troponin 0.13 at [facility] and [facility]. --Repeat troponin down to 0.08 --4th troponin pending tonight. --CP free. --Continue CAD management. --Telemetry. Leukocytosis 01/29/2013 06/05/2020 Overview: Last Assessment & Plan: --WBC 11.6 upon admission. --+Febrile 102.3 --Pt denies any fever, illness, exposure, cough --CXR 01/29 negative for any acute process. --UA, urine cx, and blood cx ordered. --APAP PRN. --CBC in AM, monitor temp. Chronic diarrhea 09/16/2011 06/07/2014 Labyrinthitis 02/05/2010 06/07/2014 Type 2 diabetes mellitus, uncontrolled 02/16/2008 02/19/2015 Duodenitis without mention of hemorrhage 06/07/2014 documented as of this encounter (statuses as of 12/15/2022) [facility]2019 History of Past illness Narrative* Problem Noted Date Diagnosed Date Resolved Date Localized swelling, mass and lump, neck 07/28/2018 06/05/2020 Family history of cerebrovas cular accident (CVA) 01/26/2018 06/05/2020 Subsequent non-ST elevation (NSTEMI) myocardial infarction within 4 weeks of initial infarction 12/25/2014 06/05/2020 Elevated troponin I level 01/29/2013 Overview: Last Assessment & Plan: --Troponin 0.13 at [facility] and [facility]. --Repeat troponin down to 0.08 --4th troponin pending tonight. --CP free. --Continue CAD management. --Telemetry. Leukocytosis 01/29/2013 06/05/2020 Overview: Last Assessment & Plan: --WBC 11.6 upon admission. --+Febrile 102.3 --Pt denies any fever, illness, exposure, cough --CXR 01/29 negative for any acute process. --UA, urine cx, and blood cx ordered. --APAP PRN. --CBC in AM, monitor temp. Chronic diarrhea 09/16/2011 06/07/2014 Labyrinthitis 02/05/2010 06/07/2014 Type 2 diabetes mellitus, uncontrolled 02/16/2008 02/19/2015 Duodenitis without mention of hemorrhage 06/07/2014 documented as of this encounter (statuses as of 12/17/2022) [facility]2019 History of Past illness Narrative* Problem Noted Date Diagnosed Date Resolved Date Localized swelling, mass and lump, neck 07/28/2018 06/05/2020 Family history of cerebrovas cular accident (CVA) 01/26/2018 06/05/2020 Subsequent non-ST elevation (NSTEMI) myocardial infarction within 4 weeks of initial infarction 12/25/2014 06/05/2020 Elevated troponin I level 01/29/2013 Overview: Last Assessment & Plan: --Troponin 0.13 at [facility] and [facility]. --Repeat troponin down to 0.08 --4th troponin pending tonight. --CP free. --Continue CAD management. --Telemetry. Leukocytosis 01/29/2013 06/05/2020 Overview: Last Assessment & Plan: --WBC 11.6 upon admission. --+Febrile 102.3 --Pt denies any fever, illness, exposure, cough --CXR 01/29 negative for any acute process. --UA, urine cx, and blood cx ordered. --APAP PRN. --CBC in AM, monitor temp. Chronic diarrhea 09/16/2011 06/07/2014 Labyrinthitis 02/05/2010 06/07/2014 Type 2 diabetes mellitus, uncontrolled 02/16/2008 02/19/2015 Duodenitis without mention of hemorrhage 06/07/2014 documented as of this encounter (statuses as of 12/17/2022) [facility] History of Past illness Narrative* Problem Noted Date Diagnosed Date Resolved Date Localized swelling, mass and lump, neck 07/28/2018 06/05/2020 Family history of cerebrovas cular accident (CVA) 01/26/2018 06/05/2020 Subsequent non-ST elevation (NSTEMI) myocardial infarction within 4 weeks of initial infarction 12/25/2014 06/05/2020 Elevated troponin I level 01/29/2013 Overview: Last Assessment & Plan: --Troponin 0.13 at [facility] and [facility]. --Repeat troponin down to 0.08 --4th troponin pending tonight. --CP free. --Continue CAD management. --Telemetry. Leukocytosis 01/29/2013 06/05/2020 Overview: Last Assessment & Plan: --WBC 11.6 upon admission. --+Febrile 102.3 --Pt denies any fever, illness, exposure, cough --CXR 01/29 negative for any acute process. --UA, urine cx, and blood cx ordered. --APAP PRN. --CBC in AM, monitor temp. Chronic diarrhea 09/16/2011 06/07/2014 Labyrinthitis 02/05/2010 06/07/2014 Type 2 diabetes mellitus, uncontrolled 02/16/2008 02/19/2015 Duodenitis without mention of hemorrhage 06/07/2014 documented as of this encounter (statuses as of 12/17/2022) [facility] History of Past illness Narrative* Problem Noted Date Diagnosed Date Resolved Date Localized swelling, mass and lump, neck 07/28/2018 06/05/2020 Family history of cerebrovas cular accident (CVA) 01/26/2018 06/05/2020 Subsequent non-ST elevation (NSTEMI) myocardial infarction within 4 weeks of initial infarction 12/25/2014 06/05/2020 Elevated troponin I level 01/29/2013 Overview: Last Assessment & Plan: --Troponin 0.13 at [facility] and [facility]. --Repeat troponin down to 0.08 --4th troponin pending tonight. --CP free. --Continue CAD management. --Telemetry. Leukocytosis 01/29/2013 06/05/2020 Overview: Last Assessment & Plan: --WBC 11.6 upon admission. --+Febrile 102.3 --Pt denies any fever, illness, exposure, cough --CXR 11/2 negative for any acute process. --UA, urine cx, and blood cx ordered. --APAP PRN. --CBC in AM, monitor temp. Chronic diarrhea 09/16/2011 06/07/2014 Labyrinthitis 02/05/2010 06/07/2014 Type 2 diabetes mellitus, uncontrolled 02/16/2008 02/19/2015 Duodenitis without mention of hemorrhage 06/07/2014 documented as of this encounter (statuses as of 12/19/2022) [facility] History of Past illness Narrative* Problem Noted Date Diagnosed Date Resolved Date Localized swelling, mass and lump, neck 07/28/2018 06/05/2020 Family history of cerebrovas cular accident (CVA) 01/26/2018 06/05/2020 Subsequent non-ST elevation (NSTEMI) myocardial infarction within 4 weeks of initial infarction 12/25/2014 06/05/2020 Elevated troponin I level 01/29/2013 Overview: Last Assessment & Plan: --Troponin 0.13 at [facility] and [facility]. --Repeat troponin down to 0.08 --4th troponin pending tonight. --CP free. --Continue CAD management. --Telemetry. Leukocytosis 01/29/2013 06/05/2020 Overview: Last Assessment & Plan: --WBC 11.6 upon admission. --+Febrile 102.3 --Pt denies any fever, illness, exposure, cough --CXR 11/2 negative for any acute process. --UA, urine cx, and blood cx ordered. --APAP PRN. --CBC in AM, monitor temp. Chronic diarrhea 09/16/2011 06/07/2014 Labyrinthitis 02/05/2010 06/07/2014 Type 2 diabetes mellitus, uncontrolled 02/16/2008 02/19/2015 Duodenitis without mention of hemorrhage 06/07/2014 documented as of this encounter (statuses as of 12/30/2022) [facility] History of Past illness Narrative* Problem Noted Date Diagnosed Date Resolved Date Localized swelling, mass and lump, neck 07/28/2018 06/05/2020 Family history of cerebrovas cular accident (CVA) 01/26/2018 06/05/2020 Subsequent non-ST elevation (NSTEMI) myocardial infarction within 4 weeks of initial infarction 12/25/2014 06/05/2020 Elevated troponin I level 01/29/2013 Overview: Last Assessment & Plan: --Troponin 0.13 at [facility] and [facility]. --Repeat troponin down to 0.08 --4th troponin pending tonight. --CP free. --Continue CAD management. --Telemetry. Leukocytosis 01/29/2013 06/05/2020 Overview: Last Assessment & Plan: --WBC 11.6 upon admission. --+Febrile 102.3 --Pt denies any fever, illness, exposure, cough --CXR 01/29 negative for any acute process. --UA, urine cx, and blood cx ordered. --APAP PRN. --CBC in AM, monitor temp. Chronic diarrhea 09/16/2011 06/07/2014 Labyrinthitis 02/05/2010 06/07/2014 Type 2 diabetes mellitus, uncontrolled 02/16/2008 02/19/2015 Duodenitis without mention of hemorrhage 06/07/2014 documented as of this encounter (statuses as of 12/30/2022) [facility] History of Past illness Narrative* Problem Noted Date Diagnosed Date Resolved Date Localized swelling, mass and lump, neck 07/28/2018 06/05/2020 Family history of cerebrovas cular accident (CVA) 01/26/2018 06/05/2020 Subsequent non-ST elevation (NSTEMI) myocardial infarction within 4 weeks of initial infarction 12/25/2014 06/05/2020 Elevated troponin I level 01/29/2013 Overview: Last Assessment & Plan: --Troponin 0.13 at [facility] and [facility]. --Repeat troponin down to 0.08 --4th troponin pending tonight. --CP free. --Continue CAD management. --Telemetry. Leukocytosis 01/29/2013 06/05/2020 Overview: Last Assessment & Plan: --WBC 11.6 upon admission. --+Febrile 102.3 --Pt denies any fever, illness, exposure, cough --CXR 11/2 negative for any acute process. --UA, urine cx, and blood cx ordered. --APAP PRN. --CBC in AM, monitor temp. Chronic diarrhea 09/16/2011 06/07/2014 Labyrinthitis 02/05/2010 06/07/2014 Type 2 diabetes mellitus, uncontrolled 02/16/2008 02/19/2015 Duodenitis without mention of hemorrhage 06/07/2014 documented as of this encounter (statuses as of 01/02/2023) [facility] History of Past illness Narrative* Problem Noted Date Diagnosed Date Resolved Date Localized swelling, mass and lump, neck 07/28/2018 06/05/2020 Family history of cerebrovas cular accident (CVA) 01/26/2018 06/05/2020 Subsequent non-ST elevation (NSTEMI) myocardial infarction within 4 weeks of initial infarction 12/25/2014 06/05/2020 Elevated troponin I level 01/29/2013 Overview: Last Assessment & Plan: --Troponin 0.13 at [facility] and [facility]. --Repeat troponin down to 0.08 --4th troponin pending tonight. --CP free. --Continue CAD management. --Telemetry. Leukocytosis 01/29/2013 06/05/2020 Overview: Last Assessment & Plan: --WBC 11.6 upon admission. --+Febrile 102.3 --Pt denies any fever, illness, exposure, cough --CXR 11/2 negative for any acute process. --UA, urine cx, and blood cx ordered. --APAP PRN. --CBC in AM, monitor temp. Chronic diarrhea 09/16/2011 06/07/2014 Labyrinthitis 02/05/2010 06/07/2014 Type 2 diabetes mellitus, uncontrolled 02/16/2008 02/19/2015 Duodenitis without mention of hemorrhage 06/07/2014 documented as of this encounter (statuses as of 01/03/2023) [facility] History of Past illness Narrative* Problem Noted Date Diagnosed Date Resolved Date Localized swelling, mass and lump, neck 07/28/2018 06/05/2020 Family history of cerebrovas cular accident (CVA) 01/26/2018 06/05/2020 Subsequent non-ST elevation (NSTEMI) myocardial infarction within 4 weeks of initial infarction 12/25/2014 06/05/2020 Elevated troponin I level 01/29/2013 Overview: Last Assessment & Plan: --Troponin 0.13 at [facility] and [facility]. --Repeat troponin down to 0.08 --4th troponin pending tonight. --CP free. --Continue CAD management. --Telemetry. Leukocytosis 01/29/2013 06/05/2020 Overview: Last Assessment & Plan: --WBC 11.6 upon admission. --+Febrile 102.3 --Pt denies any fever, illness, exposure, cough --CXR 01/29 negative for any acute process. --UA, urine cx, and blood cx ordered. --APAP PRN. --CBC in AM, monitor temp. Chronic diarrhea 09/16/2011 06/07/2014 Labyrinthitis 02/05/2010 06/07/2014 Type 2 diabetes mellitus, uncontrolled 02/16/2008 02/19/2015 Duodenitis without mention of hemorrhage 06/07/2014 documented as of this encounter (statuses as of 01/03/2023) [facility] History of Past illness Narrative* Problem Noted Date Diagnosed Date Resolved Date Localized swelling, mass and lump, neck 07/28/2018 06/05/2020 Family history of cerebrovas cular accident (CVA) 01/26/2018 06/05/2020 Subsequent non-ST elevation (NSTEMI) myocardial infarction within 4 weeks of initial infarction 12/25/2014 06/05/2020 Elevated troponin I level 01/29/2013 Overview: Last Assessment & Plan: --Troponin 0.13 at [facility] and [facility]. --Repeat troponin down to 0.08 --4th troponin pending tonight. --CP free. --Continue CAD management. --Telemetry. Leukocytosis 01/29/2013 06/05/2020 Overview: Last Assessment & Plan: --WBC 11.6 upon admission. --+Febrile 102.3 --Pt denies any fever, illness, exposure, cough --CXR 01/29 negative for any acute process. --UA, urine cx, and blood cx ordered. --APAP PRN. --CBC in AM, monitor temp. Chronic diarrhea 09/16/2011 06/07/2014 Labyrinthitis 02/05/2010 06/07/2014 Type 2 diabetes mellitus, uncontrolled 02/16/2008 02/19/2015 Duodenitis without mention of hemorrhage 06/07/2014 documented as of this encounter (statuses as of 01/08/2023) [facility] History of Past illness Narrative* Problem Noted Date Diagnosed Date Resolved Date Localized swelling, mass and lump, neck 07/28/2018 06/05/2020 Family history of cerebrovas cular accident (CVA) 01/26/2018 06/05/2020 Subsequent non-ST elevation (NSTEMI) myocardial infarction within 4 weeks of initial infarction 12/25/2014 06/05/2020 Elevated troponin I level 01/29/2013 Overview: Last Assessment & Plan: --Troponin 0.13 at [facility] and [facility]. --Repeat troponin down to 0.08 --4th troponin pending tonight. --CP free. --Continue CAD management. --Telemetry. Leukocytosis 01/29/2013 06/05/2020 Overview: Last Assessment & Plan: --WBC 11.6 upon admission. --+Febrile 102.3 --Pt denies any fever, illness, exposure, cough --CXR 2 negative for any acute process. --UA, urine cx, and blood cx ordered. --APAP PRN. --CBC in AM, monitor temp. Chronic diarrhea 09/16/2011 06/07/2014 Labyrinthitis 02/05/2010 06/07/2014 Type 2 diabetes mellitus, uncontrolled 02/16/2008 02/19/2015 Duodenitis without mention of hemorrhage 06/07/2014 documented as of this encounter (statuses as of 01/09/2023) [facility] History of Past illness Narrative* Problem Noted Date Diagnosed Date Resolved Date Localized swelling, mass and lump, neck 07/28/2018 06/05/2020 Family history of cerebrovas cular accident (CVA) 01/26/2018 06/05/2020 Subsequent non-ST elevation (NSTEMI) myocardial infarction within 4 weeks of initial infarction 12/25/2014 06/05/2020 Elevated troponin I level 01/29/2013 Overview: Last Assessment & Plan: --Troponin 0.13 at [facility] and [facility]. --Repeat troponin down to 0.08 --4th troponin pending tonight. --CP free. --Continue CAD management. --Telemetry. Leukocytosis 01/29/2013 06/05/2020 Overview: Last Assessment & Plan: --WBC 11.6 upon admission. --+Febrile 102.3 --Pt denies any fever, illness, exposure, cough --CXR 11/2 negative for any acute process. --UA, urine cx, and blood cx ordered. --APAP PRN. --CBC in AM, monitor temp. Chronic diarrhea 09/16/2011 06/07/2014 Labyrinthitis 02/05/2010 06/07/2014 Type 2 diabetes mellitus, uncontrolled 02/16/2008 02/19/2015 Duodenitis without mention of hemorrhage 06/07/2014 documented as of this encounter (statuses as of 02/10/2023) [facility] History of Past illness Narrative* Problem Noted Date Diagnosed Date Resolved Date Localized swelling, mass and lump, neck 07/28/2018 06/05/2020 Family history of cerebrovas cular accident (CVA) 01/26/2018 06/05/2020 Subsequent non-ST elevation (NSTEMI) myocardial infarction within 4 weeks of initial infarction 12/25/2014 06/05/2020 Elevated troponin I level 01/29/2013 Overview: Last Assessment & Plan: --Troponin 0.13 at [facility] and [facility]. --Repeat troponin down to 0.08 --4th troponin pending tonight. --CP free. --Continue CAD management. --Telemetry. Leukocytosis 01/29/2013 06/05/2020 Overview: Last Assessment & Plan: --WBC 11.6 upon admission. --+Febrile 102.3 --Pt denies any fever, illness, exposure, cough --CXR 01/29 negative for any acute process. --UA, urine cx, and blood cx ordered. --APAP PRN. --CBC in AM, monitor temp. Chronic diarrhea 09/16/2011 06/07/2014 Labyrinthitis 02/05/2010 06/07/2014 Type 2 diabetes mellitus, uncontrolled 02/16/2008 02/19/2015 Duodenitis without mention of hemorrhage 06/07/2014 documented as of this encounter (statuses as of 02/10/2023) [facility] History of Past illness Narrative* Problem Noted Date Diagnosed Date Resolved Date Localized swelling, mass and lump, neck 07/28/2018 06/05/2020 Family history of cerebrovas cular accident (CVA) 01/26/2018 06/05/2020 Subsequent non-ST elevation (NSTEMI) myocardial infarction within 4 weeks of initial infarction 12/25/2014 06/05/2020 Elevated troponin I level 01/29/2013 Overview: Last Assessment & Plan: --Troponin 0.13 at [facility] and [facility]. --Repeat troponin down to 0.08 --4th troponin pending tonight. --CP free. --Continue CAD management. --Telemetry. Leukocytosis 01/29/2013 06/05/2020 Overview: Last Assessment & Plan: --WBC 11.6 upon admission. --+Febrile 102.3 --Pt denies any fever, illness, exposure, cough --CXR 11/2 negative for any acute process. --UA, urine cx, and blood cx ordered. --APAP PRN. --CBC in AM, monitor temp. Chronic diarrhea 09/16/2011 06/07/2014 Labyrinthitis 02/05/2010 06/07/2014 Type 2 diabetes mellitus, uncontrolled 02/16/2008 02/19/2015 Duodenitis without mention of hemorrhage 06/07/2014 documented as of this encounter (statuses as of 02/11/2023) [facility] History of Past illness Narrative* Problem Noted Date Diagnosed Date Resolved Date Localized swelling, mass and lump, neck 07/28/2018 06/05/2020 Family history of cerebrovas cular accident (CVA) 01/26/2018 06/05/2020 Subsequent non-ST elevation (NSTEMI) myocardial infarction within 4 weeks of initial infarction 12/25/2014 06/05/2020 Elevated troponin I level 01/29/2013 Overview: Last Assessment & Plan: --Troponin 0.13 at [facility] and [facility]. --Repeat troponin down to 0.08 --4th troponin pending tonight. --CP free. --Continue CAD management. --Telemetry. Leukocytosis 01/29/2013 06/05/2020 Overview: Last Assessment & Plan: --WBC 11.6 upon admission. --+Febrile 102.3 --Pt denies any fever, illness, exposure, cough --CXR 11/2 negative for any acute process. --UA, urine cx, and blood cx ordered. --APAP PRN. --CBC in AM, monitor temp. Chronic diarrhea 09/16/2011 06/07/2014 Labyrinthitis 02/05/2010 06/07/2014 Type 2 diabetes mellitus, uncontrolled 02/16/2008 02/19/2015 Duodenitis without mention of hemorrhage 06/07/2014 documented as of this encounter (statuses as of 02/17/2023) [facility] History of Past illness Narrative* Problem Noted Date Diagnosed Date Resolved Date Localized swelling, mass and lump, neck 07/28/2018 06/05/2020 Family history of cerebrovas cular accident (CVA) 01/26/2018 06/05/2020 Subsequent non-ST elevation (NSTEMI) myocardial infarction within 4 weeks of initial infarction 12/25/2014 06/05/2020 Elevated troponin I level 01/29/2013 Overview: Last Assessment & Plan: --Troponin 0.13 [facility] and [facility]. --Repeat troponin down to 0.08 --4th troponin pending tonight. --CP free. --Continue CAD management. --Telemetry. Leukocytosis 01/29/2013 06/05/2020 Overview: Last Assessment & Plan: --WBC 11.6 upon admission. --+Febrile 102.3 --Pt denies any fever, illness, exposure, cough --CXR 01/29 negative for any acute process. --UA, urine cx, and blood cx ordered. --APAP PRN. --CBC in AM, monitor temp. Chronic diarrhea 09/16/2011 06/07/2014 Labyrinthitis 02/05/2010 06/07/2014 Type 2 diabetes mellitus, uncontrolled 02/16/2008 02/19/2015 Duodenitis without mention of hemorrhage 06/07/2014 documented as of this encounter (statuses as of 02/20/2023) [facility] History of Past illness Narrative* Problem Noted Date Diagnosed Date Resolved Date Localized swelling, mass and lump, neck 07/28/2018 06/05/2020 Family history of cerebrovas cular accident (CVA) 01/26/2018 06/05/2020 Subsequent non-ST elevation (NSTEMI) myocardial infarction within 4 weeks of initial infarction 12/25/2014 06/05/2020 Elevated troponin I level 01/29/2013 Overview: Last Assessment & Plan: --Troponin 0.13 [facility] and 0[facility]. --Repeat troponin down to 0.08 --4th troponin pending tonight. --CP free. --Continue CAD management. --Telemetry. Leukocytosis 01/29/2013 06/05/2020 Overview: Last Assessment & Plan: --WBC 11.6 upon admission. --+Febrile 102.3 --Pt denies any fever, illness, exposure, cough --CXR 2 negative for any acute process. --UA, urine cx, and blood cx ordered. --APAP PRN. --CBC in AM, monitor temp. Chronic diarrhea 09/16/2011 06/07/2014 Labyrinthitis 02/05/2010 06/07/2014 Type 2 diabetes mellitus, uncontrolled 02/16/2008 02/19/2015 Duodenitis without mention of hemorrhage 06/07/2014 documented as of this encounter (statuses as of 02/24/2023) [facility] History of Past illness Narrative* Problem Noted Date Diagnosed Date Resolved Date Localized swelling, mass and lump, neck 07/28/2018 06/05/2020 Family history of cerebrovas cular accident (CVA) 01/26/2018 06/05/2020 Subsequent non-ST elevation (NSTEMI) myocardial infarction within 4 weeks of initial infarction 12/25/2014 06/05/2020 Elevated troponin I level 01/29/2013 Overview: Last Assessment & Plan: --Troponin 0.13 at OSH and 0.14 in [facility] ED. --Repeat troponin down to 0.08 --4th troponin pending tonight. --CP free. --Continue CAD management. --Telemetry. Leukocytosis 01/29/2013 06/05/2020 Overview: Last Assessment & Plan: --WBC 11.6 upon admission. --+Febrile 102.3 --Pt denies any fever, illness, exposure, cough --CXR 2 negative for any acute process. --UA, urine cx, and blood cx ordered. --APAP PRN. --CBC in AM, monitor temp. Chronic diarrhea 09/16/2011 06/07/2014 Labyrinthitis 02/05/2010 06/07/2014 Type 2 diabetes mellitus, uncontrolled 02/16/2008 02/19/2015 Duodenitis without mention of hemorrhage 06/07/2014 documented as of this encounter (statuses as of 02/25/2023) [facility] History of Past illness Narrative* Problem Noted Date Diagnosed Date Resolved Date Localized swelling, mass and lump, neck 07/28/2018 06/05/2020 Family history of cerebrovas cular accident (CVA) 01/26/2018 06/05/2020 Subsequent non-ST elevation (NSTEMI) myocardial infarction within 4 weeks of initial infarction 12/25/2014 06/05/2020 Elevated troponin I level 01/29/2013 Overview: Last Assessment & Plan: --Troponin 0.13 at OSH and 0.14 in [facility]. --Repeat troponin down to 0.08 --4th troponin pending tonight. --CP free. --Continue CAD management. --Telemetry. Leukocytosis 01/29/2013 06/05/2020 Overview: Last Assessment & Plan: --WBC 11.6 upon admission. --+Febrile 102.3 --Pt denies any fever, illness, exposure, cough --CXR 01/29 negative for any acute process. --UA, urine cx, and blood cx ordered. --APAP PRN. --CBC in AM, monitor temp. Chronic diarrhea 09/16/2011 06/07/2014 Labyrinthitis 02/05/2010 06/07/2014 Type 2 diabetes mellitus, uncontrolled 02/16/2008 02/19/2015 Duodenitis without mention of hemorrhage 06/07/2014 documented as of this encounter (statuses as of 03/03/2023) [facility] History of Past illness Narrative* Problem Noted Date Diagnosed Date Resolved Date Localized swelling, mass and lump, neck 07/28/2018 06/05/2020 Family history of cerebrovas cular accident (CVA) 01/26/2018 06/05/2020 Subsequent non-ST elevation (NSTEMI) myocardial infarction within 4 weeks of initial infarction 12/25/2014 06/05/2020 Elevated troponin I level 01/29/2013 Overview: Last Assessment & Plan: --Troponin 0.13 at OSH and 0.[facility]. --Repeat troponin down to 0.08 --4th troponin pending tonight. --CP free. --Continue CAD management. --Telemetry. Leukocytosis 01/29/2013 06/05/2020 Overview: Last Assessment & Plan: --WBC 11.6 upon admission. --+Febrile 102.3 --Pt denies any fever, illness, exposure, cough --CXR 01/29 negative for any acute process. --UA, urine cx, and blood cx ordered. --APAP PRN. --CBC in AM, monitor temp. Chronic diarrhea 09/16/2011 06/07/2014 Labyrinthitis 02/05/2010 06/07/2014 Type 2 diabetes mellitus, uncontrolled 02/16/2008 02/19/2015 Duodenitis without mention of hemorrhage 06/07/2014 documented as of this encounter (statuses as of 03/12/2023) [facility] Diagnosis Anticoagulated on Coumadin- Primary Encounter for therapeutic drug monitoring Paroxysmal atrial fibrillation (HCC) Atrial [facility] Diagnosis Bronchitis- Primary Bronchitis, not specified as acute or chronic [facility] Diagnosis Anticoagulated on Coumadin- Primary Encounter for therapeutic drug monitoring Paroxysmal atrial fibrillation (HCC) Atrial fibrillation [facility] Diagnosis Cellulitis of skin- Primary Cellulitis and abscess of unspecified site Left hand pain Pain in limb [facility] Diagnosis Type 2 diabetes mellitus with diabetic neuropathy, with long-term current use of insulin (HCC) [facility] Diagnosis Need for vaccination- Primary Need for prophylactic vaccination and inoculation against unspecified single disease [facility] Diagnosis Age-related physical debility- Primary Senility without mention of psychosis At moderate risk for fall Personal history of fall GERD without esophagitis Esophageal reflux Type 2 diabetes mellitus with diabetic neuropathy, with long-term current use of insulin (HCC) Acute on chronic HFrEF (heart failure with reduced ejection fraction) (HCC) Paroxysmal atrial fibrillation (HCC) Atrial fibrillation Chronic pain of both knees Restless leg syndrome Restless legs syndrome (RLS) [facility] Diagnosis Anticoagulated on Coumadin- Primary Encounter for therapeutic drug monitoring Paroxysmal atrial fibrillation (HCC) Atrial fibrillation [facility]* Diagnosis Acute midline low back pain with bilateral sciatica [facility] Diagnosis Acute on chronic HFrEF (heart failure with reduced ejection fraction) (HCC)- Primary Chronic pain of both knees Type 2 diabetes mellitus with diabetic neuropathy, with long-term current use of insulin (HCC) Class 3 severe obesity with serious comorbidity and body mass index (BMI) of 40.0 to 44.9 in adult, unspecified obesity type (HCC) [facility]* Diagnosis Age-related physical debility- Primary Senility without mention of psychosis Mobility impaired Other ill-defined conditions At moderate risk for fall Personal history of fall Acute on chronic HFrEF (heart failure with reduced ejection fraction) ([facility]) Class 3 severe obesity with serious comorbidity and body mass index (BMI) of 40.0 to 44.9 in adult, unspecified obesity type (HCC) Type 2 diabetes mellitus with diabetic neuropathy, with long-term current use of insulin (HCC) Type 2 diabetes mellitus with peripheral neuropathy (HCC) GERD without esophagitis Esophageal reflux [facility] Diagnosis Anticoagulated on Coumadin- Primary Encounter for therapeutic drug monitoring Paroxysmal atrial fibrillation (HCC) Atrial fibrillation [facility]* Diagnosis Anticoagulated on Coumadin- Primary Encounter for therapeutic drug monitoring Paroxysmal atrial fibrillation (HCC) Atrial fibrillation Chronic atrial fibrillation (HCC) Atrial fibrillation [facility]* Diagnosis Restless leg syndrome- Primary Restless legs syndrome (RLS) [facility]* Diagnosis Chronic atrial fibrillation (HCC) Atrial fibrillation [facility]* Diagnosis Primary osteoarthritis of right knee- Primary Primary localized osteoarthrosis, lower leg [facility] Diagnosis Subsequent non-ST elevation (NSTEMI) myocardial infarction within 4 weeks of initial infarction (HCC) [facility]* Diagnosis Anticoagulated on Coumadin- Primary Encounter for therapeutic drug monitoring Paroxysmal atrial fibrillation (HCC) Atrial fibrillation [facility]* Diagnosis Chronic combined systolic and diastolic congestive heart failure (HCC)- Primary Chronic combined systolic and diastolic heart failure documented in this encounter [facility]* Diagnosis Anticoagulated on Coumadin- Primary Encounter for therapeutic drug monitoring Paroxysmal atrial fibrillation (HCC) Atrial fibrillation [facility]* Diagnosis Type 2 diabetes mellitus with diabetic neuropathy, with long-term current use of insulin ([facility]) documented in this encounter [facility] note* Diagnosis Type 2 diabetes mellitus with diabetic neuropathy, with long-term current use of insulin ([facility]) [facility]* Diagnosis Left foot infection- Primary Unspecified local infection of skin and subcutaneous tissue documented in this encounter [facility] note* Diagnosis Chronic combined systolic and diastolic congestive heart failure (HCC)- Primary Chronic combined systolic and diastolic heart failure [facility]* Diagnosis Anticoagulated on Coumadin- Primary Encounter for therapeutic drug monitoring Paroxysmal atrial fibrillation (HCC) Atrial fibrillation [facility]* Diagnosis Class 3 severe obesity with serious comorbidity and body mass index (BMI) of 40.0 to 44.9 in adult, unspecified obesity type (HCC)- Primary Facet arthritis of lumbar region Lumbosacral spondylosis without myelopathy Chronic pain of both knees [facility]* Diagnosis Anticoagulated on Coumadin- Primary Encounter for therapeutic drug monitoring Paroxysmal atrial fibrillation (HCC) Atrial fibrillation [facility]* Diagnosis Type 2 diabetes mellitus with diabetic neuropathy, with long-term current use of insulin ([facility])- Primary [facility]* Diagnosis Acute cough- Primary COVID-19 [facility]* Diagnosis COVID-19 [facility]* Diagnosis Type 2 diabetes mellitus with diabetic neuropathy, with long-term current use of insulin ([facility])- Primary Restless leg syndrome Restless legs syndrome (RLS) Essential hypertension Unspecified essential hypertension Hyperlipidemia LDL goal <100 Other and unspecified hyperlipidemia ASHD (arteriosclerotic heart disease) Coronary atherosclerosis of unspecified type of vessel, makah or graft Atrial flutter, unspecified type (HCC) 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 heart failure (HCC) Chronic combined systolic and diastolic heart failure Gastroesophageal reflux disease, unspecified whether esophagitis present JESSICA (obstructive sleep apnea) Obstructive sleep apnea (adult) (pediatric) Class 3 severe obesity with serious comorbidity and body mass index (BMI) of 40.0 to 44.9 in adult, unspecified obesity type (HCC) At moderate risk for fall Personal history of fall Acute cough [facility] Diagnosis Paroxysmal atrial fibrillation (HCC)- Primary Atrial fibrillation Anticoagulated on Coumadin Encounter for therapeutic drug monitoring [facility] Diagnosis Anticoagulated on Coumadin- Primary Encounter for therapeutic drug monitoring Paroxysmal atrial fibrillation (HCC) Atrial fibrillation [facility]* Diagnosis SOB (shortness of breath)- Primary Shortness of breath [facility]* Diagnosis Type 2 diabetes mellitus with diabetic neuropathy, with long-term current use of insulin (HCC)- Primary [facility]* Diagnosis Chronic combined systolic and diastolic congestive heart failure (HCC)- Primary Chronic combined systolic and diastolic heart failure Acute on chronic systolic congestive heart failure (HCC) Acute on chronic systolic heart failure Type 2 diabetes mellitus with diabetic neuropathy, with long-term current use of insulin (HCC) Paroxysmal atrial fibrillation (HCC) Atrial fibrillation ASHD (arteriosclerotic heart disease) Coronary atherosclerosis of unspecified type of vessel, makah or graft Ischemic cardiomyopathy Other specified forms of chronic ischemic heart disease Stage 3a chronic kidney disease (HCC) Anticoagulated on Coumadin Encounter for therapeutic drug monitoring Anemia, unspecified type [facility] Diagnosis Facial swelling- Primary Swelling, mass, or lump in head and neck Weight gain Abnormal weight gain [facility]* Diagnosis Anticoagulated on Coumadin- Primary Encounter for therapeutic drug monitoring Paroxysmal atrial fibrillation (HCC) Atrial fibrillation [facility] Diagnosis Hospital discharge follow-up- Primary Other follow-up examination Acute on chronic systolic congestive heart failure (HCC) Acute on chronic systolic heart failure Essential hypertension Unspecified essential hypertension Paroxysmal atrial fibrillation (HCC) Atrial fibrillation Class 3 severe obesity with serious comorbidity and body mass index (BMI) of 40.0 to 44.9 in adult, unspecified obesity type (HCC) Type 2 diabetes mellitus with stage 3a chronic kidney disease, with long-term current use of insulin (HCC) Type 2 diabetes mellitus with diabetic neuropathy, with long-term current use of insulin (HCC) 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 heart failure (HCC) Chronic combined systolic and diastolic heart failure Atrial flutter, unspecified type (HCC) Chronic kidney disease, stage 3a (HCC) Chronic obstructive pulmonary disease, unspecified COPD type (HCC) [facility] Diagnosis Acute on chronic systolic congestive heart failure (HCC)- Primary Acute on chronic systolic heart failure Chronic obstructive pulmonary disease, unspecified COPD type (HCC) [facility]* Diagnosis Chronic combined systolic and diastolic congestive heart failure (HCC)- Primary Chronic combined systolic and diastolic heart failure Chronic obstructive pulmonary disease, unspecified COPD type (HCC) [facility]* Diagnosis Type 2 diabetes mellitus with peripheral neuropathy (HCC) [facility]* Diagnosis Essential hypertension- Primary Unspecified essential hypertension Chronic combined systolic and diastolic congestive heart failure (HCC) Chronic combined systolic and diastolic heart failure Stage 3a chronic kidney disease (HCC) [facility]* Diagnosis Dysuria- Primary Blood in the stool Blood in stool Anemia, unspecified type Paroxysmal atrial fibrillation (HCC) Atrial fibrillation [facility]* Diagnosis Anticoagulated on Coumadin- Primary Encounter for therapeutic drug monitoring Paroxysmal atrial fibrillation (HCC) Atrial fibrillation [facility]* Diagnosis Acute cystitis with hematuria- Primary Acute cystitis [facility]* Diagnosis Chronic combined systolic and diastolic congestive heart failure (HCC)- Primary Chronic combined systolic and diastolic heart failure Chronic obstructive pulmonary disease, unspecified COPD type (HCC) Diarrhea, unspecified type [facility]* Diagnosis Anticoagulated on Coumadin- Primary Encounter for therapeutic drug monitoring Paroxysmal atrial fibrillation (HCC) Atrial fibrillation [facility]* Diagnosis Type 2 diabetes mellitus with diabetic neuropathy, with long-term current use of insulin ([facility]) [facility]* Diagnosis Cough, unspecified type- Primary SOB (shortness of breath) Shortness of breath [facility]* Diagnosis Type 2 diabetes mellitus with diabetic neuropathy, with long-term current use of insulin (HCC)- Primary Restless leg syndrome Restless legs syndrome (RLS) Essential hypertension Unspecified essential hypertension Paroxysmal atrial fibrillation (HCC) Atrial fibrillation ASHD (arteriosclerotic heart disease) Coronary atherosclerosis of unspecified type of vessel, makah or graft JESSICA (obstructive sleep apnea) Obstructive sleep apnea (adult) (pediatric) Gastroesophageal reflux disease, unspecified whether esophagitis present Type 2 diabetes mellitus with stage 3a chronic kidney disease, with long-term current use of insulin ([facility]) Chronic combined systolic and diastolic congestive heart failure (HCC) Chronic combined systolic and diastolic heart failure Sleeping difficulty Sleep disturbance, unspecified Stage 3a chronic kidney disease (HCC) [facility]* Diagnosis Chronic pain of right knee- Primary Primary osteoarthritis of right knee Primary localized osteoarthrosis, lower leg [facility]* Diagnosis Anticoagulated on Coumadin- Primary Encounter for therapeutic drug monitoring Paroxysmal atrial fibrillation (HCC) Atrial fibrillation [facility]* Diagnosis Type 2 diabetes mellitus with diabetic neuropathy, with long-term current use of insulin ([facility])- Primary [facility]* Diagnosis Type 2 diabetes mellitus with diabetic neuropathy, with long-term current use of insulin (HCC) Type 2 diabetes mellitus with diabetic neuropathy, with long-term current use of insulin (HCC)- Primary Restless leg syndrome Restless legs syndrome (RLS) Essential hypertension Unspecified essential hypertension Paroxysmal atrial fibrillation (HCC) Atrial fibrillation ASHD (arteriosclerotic heart disease) Coronary atherosclerosis of unspecified type of vessel, makah or graft JESSICA (obstructive sleep apnea) Obstructive sleep apnea (adult) (pediatric) [facility]* Diagnosis Type 2 diabetes mellitus with diabetic neuropathy, with long-term current use of insulin (HCC)- Primary Essential hypertension Unspecified essential hypertension ASHD (arteriosclerotic heart disease) Coronary atherosclerosis of unspecified type of vessel, makah or graft Paroxysmal atrial fibrillation (HCC) Atrial fibrillation JESSICA (obstructive sleep apnea) Obstructive sleep apnea (adult) (pediatric) Restless leg syndrome Restless legs syndrome (RLS) Situational depression Adjustment disorder with depressed mood [facility]* Diagnosis Anticoagulated on Coumadin- Primary Encounter for therapeutic drug monitoring Paroxysmal atrial fibrillation (HCC) Atrial fibrillation [facility]* Diagnosis Anticoagulated on Coumadin- Primary Encounter for therapeutic drug monitoring Paroxysmal atrial fibrillation (HCC) Atrial fibrillation [facility]* Diagnosis Black stool- Primary Nonspecific abnormal finding in stool contents History of colonic polyps Personal history of colonic polyps History of gastritis Personal history of other diseases of digestive system Pacemaker Cardiac pacemaker in situ Petit's esophagus with esophagitis Petit's esophagus Anemia, unspecified type History of GI bleed Personal history of other diseases of digestive system [facility] Diagnosis Black stool- Primary Nonspecific abnormal finding in stool contents History of colonic polyps Personal history of colonic polyps History of gastritis Personal history of other diseases of digestive system Pacemaker Cardiac pacemaker in situ Petit's esophagus with esophagitis Petit's esophagus Anemia, unspecified type History of GI bleed Personal history of other diseases of digestive system [facility]* Diagnosis Type 2 diabetes mellitus with diabetic neuropathy, with long-term current use of insulin ([facility])- Primary [facility]* Diagnosis Restless leg syndrome Restless legs syndrome (RLS) [facility]* Diagnosis Anticoagulated on Coumadin- Primary Encounter for therapeutic drug monitoring Paroxysmal atrial fibrillation (HCC) Atrial fibrillation [facility]* Diagnosis Type 2 diabetes mellitus with diabetic neuropathy, with long-term current use of insulin ([facility]) [facility]* Diagnosis Anticoagulated on Coumadin- Primary Encounter for therapeutic drug monitoring Paroxysmal atrial fibrillation (HCC) Atrial fibrillation [facility]* Diagnosis Hospital discharge follow-up- Primary Other follow-up examination Gastrointestinal hemorrhage, unspecified gastrointestinal hemorrhage type Anemia, unspecified type Weight gain Abnormal weight gain SOB (shortness of breath) Shortness of breath Peripheral vascular disease (HCC) Peripheral vascular disease, unspecified Paroxysmal atrial fibrillation (HCC) Atrial fibrillation Ischemic cardiomyopathy Other specified forms of chronic ischemic heart disease 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 stage 3a chronic kidney disease (HCC) [facility] Diagnosis Dysuria- Primary documented in this encounter [facility] Diagnosis Urinary tract infection without hematuria, site unspecified- Primary [facility] Diagnosis Weight gain Abnormal weight gain SOB (shortness of breath) Shortness of breath Chronic atrial fibrillation (HCC) Atrial fibrillation [facility]* Diagnosis Type 2 diabetes mellitus with stage 3a chronic kidney disease, with long-term current use of insulin (HCC)- Primary Type 2 diabetes mellitus with diabetic neuropathy, with long-term current use of insulin (HCC) [facility]* Diagnosis Dysuria- Primary [facility]* Diagnosis Chronic combined systolic and diastolic congestive heart failure (HCC)- Primary Chronic combined systolic and diastolic heart failure Chronic obstructive pulmonary disease, unspecified COPD type (HCC) [facility]* Diagnosis SOB (shortness of breath)- Primary Shortness of breath Essential hypertension Unspecified essential hypertension Paroxysmal atrial fibrillation (HCC) Atrial fibrillation Anticoagulated on Coumadin Encounter for therapeutic drug monitoring ASHD (arteriosclerotic heart disease) Coronary atherosclerosis of unspecified type of vessel, makah or graft Hyperlipidemia LDL goal <100 Other and unspecified hyperlipidemia Ischemic cardiomyopathy Other specified forms of chronic ischemic heart disease Type 2 diabetes mellitus with diabetic neuropathy, with long-term current use of insulin (HCC) [facility]* Diagnosis Type 2 diabetes mellitus with diabetic neuropathy, with long-term current use of insulin (HCC) Weight gain Abnormal weight gain SOB (shortness of breath) Shortness of breath [facility]* Diagnosis Anticoagulated on Coumadin- Primary Encounter for therapeutic drug monitoring Paroxysmal atrial fibrillation (HCC) Atrial fibrillation [facility] Diagnosis Anticoagulated on Coumadin- Primary Encounter for therapeutic drug monitoring Paroxysmal atrial fibrillation (HCC) Atrial fibrillation documented in this encounter [facility] for referral (narrative)* Diagnostic Procedure Only (Routine) - Pending Review Specialty Diagnoses / Procedures Referred By Contac t Referred To Contact XR IMAGING Diagnoses Left hand pain Procedures XR HAND GENERAL 3V PA/LAT/OBL LEFT RADEX HAND MINIMUM 3 VIEWS Shereen Holt APRN.PUPPET MAKER [address] [place] [address] Xr Imaging Referral ID Status Reason Start Date Expiration Date Visits Requested Visits Authorized [id number] Pending Review Auto-Generat ed Referral 07/17/2021 08/16/2022 1 1 * Consult, Test, Treat (Routine) - Authorized Specialty Diagnoses / Procedures Referred By Contac t Referred To Contact Orthopedics Diagnoses Left hand pain Procedures CONSULT TO ORTHOPAEDICS OFFICE/OUTPATIENT [facility] MDM 60-74 MINUTES Shereen Holt APRN.PUPPET MAKER [address] [place] [address] Referral ID Status Reason Start Date Expiration Date Visits Requested Visits Authorized [id number] Authorized PCP Requested Referral 07/17/2021 07/17/2022 1 1 [facility] Summary Purpose Family History No Family History Records FoundNo Family History Records FoundNo Family History Records FoundNo Family History Records Found Advance Directives No Advanced Directives Records FoundNo Advanced Directives Records FoundNo Advanced Directives Records FoundNo Advanced Directives Records Found Health Concerns Infection Onset Date Last Indicated Resolved Time COVID-19 Rule-Out 07/15/2021 07/15/2021 Infection Onset Date Last Indicated Resolved Time COVID-19 Rule-Out 07/15/2021 07/15/2021 07/16/2021 5:06 AM EDT Infection Onset Date Last Indicated Resolved Time COVID-19 Rule-Out 01/21/2022 01/21/2022 Infection Onset Date Last Indicated Resolved Time COVID-19 Rule-Out 01/21/2022 01/21/2022 01/22/2022 2:04 AM EDT COVID-19 Confirmed 01/21/2022 01/21/2022 Infection Onset Date Last Indicated Resolved Time COVID-19 Confirmed 01/21/2022 01/21/2022 Infection Onset Date Last Indicated Resolved Time COVID-19 Confirmed 01/21/2022 01/21/2022 Infection Onset Date Last Indicated Resolved Time COVID-19 Confirmed 01/21/2022 01/21/2022 8:51 PM EDT Problem Noted Date High Risk Chronic Disease Home Monitorin g Problem 08/13/2022 Problem Noted Date High Risk Chronic Disease Home Monitorin g Problem 08/13/2022 Problem Noted Date High Risk Chronic Disease Home Monitorin g Problem 08/13/2022 Problem Noted Date High Risk Chronic Disease Home Monitorin g Problem 08/13/2022 Problem Noted Date High Risk Chronic Disease Home Monitorin g Problem 08/13/2022 Problem Noted Date Diagnosed Date High Risk Chronic Disease Home Monitoring Proble m 08/13/2022 Problem Noted Date Diagnosed Date High Risk Chronic Disease Home Monitoring Proble m 08/13/2022 Problem Noted Date Diagnosed Date High Risk Chronic Disease Home Monitoring Proble m 08/13/2022 Problem Noted Date Diagnosed Date High Risk Chronic Disease Home Monitoring Proble m 08/13/2022 Problem Noted Date Diagnosed Date High Risk Chronic Disease Home Monitoring Proble m 08/13/2022 Problem Noted Date Diagnosed Date High Risk Chronic Disease Home Monitoring Proble m 08/13/2022 Problem Noted Date Diagnosed Date High Risk Chronic Disease Home Monitoring Proble m 08/13/2022 Problem Noted Date Diagnosed Date High Risk Chronic Disease Home Monitoring Proble m 08/13/2022 Problem Noted Date Diagnosed Date High Risk Chronic Disease Home Monitoring Proble m 08/13/2022 Problem Noted Date Diagnosed Date High Risk Chronic Disease Home Monitoring Proble m 08/13/2022 Problem Noted Date Diagnosed Date High Risk Chronic Disease Home Monitoring Proble m 08/13/2022 Problem Noted Date Diagnosed Date High Risk Chronic Disease Home Monitoring Proble m 08/13/2022 Problem Noted Date Diagnosed Date High Risk Chronic Disease Home Monitoring Proble m 08/13/2022 Problem Noted Date Diagnosed Date High Risk Chronic Disease Home Monitoring Proble m 08/13/2022 Problem Noted Date Diagnosed Date High Risk Chronic Disease Home Monitoring Proble m 08/13/2022 Problem Noted Date Diagnosed Date High Risk Chronic Disease Home Monitoring Proble m 08/13/2022 Problem Noted Date Diagnosed Date High Risk Chronic Disease Home Monitoring Proble m 08/13/2022 Problem Noted Date Diagnosed Date High Risk Chronic Disease Home Monitoring Proble m 08/13/2022 Problem Noted Date Diagnosed Date High Risk Chronic Disease Home Monitoring Proble 08/13/2022 Reason for Referral Specialty Diagnoses / Procedures Referred By Contac t Referred To Contact [facility] Diagnoses Age-related physical debility At moderate risk for fall Procedures CONSULT TO PHYSICAL THERAPY PHYSICAL THERAPY EVALUATION HIGH COMPLEX 45 MINS Ramiro Null, SHANELLE.RODRIGUEZ, DNP [address] [place] [address] [facility] [address] [address] Referral ID Status Reason Start Date Expiration Date Visits Requested Visits Authorized [id number] Authorized PCP Requested Referral Auto-Generate d Referral 08/05/2021 07/29/2022 99 99 Specialty Diagnoses / Procedures Referred By Contac t Referred To Contact [facility] Diagnoses At moderate risk for fall Mobility impaired Age-related physical debility Procedures CONSULT TO PHYSICAL THERAPY PHYSICAL THERAPY EVALUATION HIGH COMPLEX 45 MINS Ramiro Null, PARAFFIN 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.RODRIGUEZ, FAIZA [address] [place] [address] [facility] [address] [address] Referral ID Status Reason Start Date Expiration Date Visits Requested Visits Authorized [id number] Authorized PCP Requested Referral Auto-Generate d Referral 08/16/2021 08/09/2022 99 99 Specialty Diagnoses / Procedures Referred By Contac t Referred To Contact Diagnoses COVID-19 Procedures COVID TREATMENT REFERRAL COVID TREATMENT REFERRAL Becky Mccarthy, PARAFFIN 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.PUPPET MAKER [address] [place] [address] Referral ID Status Reason Start Date Expiration Date Visits Requested Visits Authorized [id number] Pending Review Auto-Generat ed Referral 01/21/2023 1 1 Specialty Diagnoses / Procedures Referred By Contac t Referred To Contact General Surgery Diagnoses Blood in the stool Procedures CONSULT TO GENERAL SURGERY OFFICE/OUTPATIENT [facility] MDM 60-74 MINUTES Shereen Holt, PARAFFIN 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.PUPPET MAKER [address] [place] [address] Referral ID Status Reason Start Date Expiration Date Visits Requested Visits Authorized [id number] Authorized PCP Requested Referral 05/05/2022 05/05/2023 1 1 Specialty Diagnoses / Procedures Referred By Kendra harrison Referred To Contact Diagnoses Black stool History of colonic polyps History of gastritis Pacemaker Petit's esophagus with esophagitis History of GI bleed Procedures REFER TO PACC - PRE ANESTHESIA CONSULTATION CLINIC OFFICE/OUTPATIENT [facility] MDM 60-74 MINUTES Cristina Rausch PA-C [address] [place] [address] Referral ID Status Reason Start Date Expiration Date Visits Requested Visits Authorized [id number] Authorized PCP Requested Referral 10/20/2022 10/20/2023 1 1 Specialty Diagnoses / Procedures Referred By Kendra harrison Referred To Contact [facility] Diagnoses Black stool History of colonic polyps History of gastritis Pacemaker Petit's esophagus with esophagitis Anemia, unspecified type History of GI bleed Procedures EGD DIAGNOSTIC ESOPHAGOGASTRODUODENOSC OPY TRANSORAL DIAGNOSTIC Cristina Rausch PA-C [address] [place] [address] [facility] [address] [address] Referral ID Status Reason Start Date Expiration Date Visits Requested Visits Authorized [id number] Authorized Auto-Generat ed Referral 10/20/2022 10/21/2023 1 1 Specialty Diagnoses / Procedures Referred By Kendra harrison Referred To Contact [facility] Diagnoses Black stool History of colonic polyps History of gastritis Pacemaker Petit's esophagus with esophagitis Anemia, unspecified type History of GI bleed Procedures COLONOSCOPY DIAGNOSTIC COLONOSCOPY FLX DX W/COLLJ SPEC WHEN PFRMD Cristina Rausch PA-C [address] [place] [address] [address] Referral ID Status Reason Start Date Expiration Date Visits Requested Visits Authorized [id number] Authorized Auto-Generat ed Referral 10/20/2022 10/21/2023 1 1 Medications Administered Section Inactive Administered Medications - up to 3 most recent administrations Medication Order MAR Action Action Date Dose Rate Site betamethasone acetate-betamethasone sodium phosphate 6 mg injection (CELESTONE) 6 mg, Injection - FOR ORTHO USE ONLY, ONE TIME INJECTION, 1 dose, Starting on Juliana 09/05/21 at 1546, Until Juliana 09/05/21 at 1546 Given 09/05/2021 3:46 PM EDT 6 mg lidocaine (PF) 10 mg/mL (1 %) 4 mL injection (XYLOCAINE) 4 mL, Injection - FOR ORTHO USE ONLY, ONE TIME INJECTION, 1 dose, Starting on Juliana 09/05/21 at 1546, Until Juliana 09/05/21 at 1546 Given 09/05/2021 3:46 PM EDT 4 mL Inactive Administered Medications - up to 3 most recent administrations Medication Order MAR Action Action Date Dose Rate Site bebtelovimab 175 mg injection 175 mg, INTRAVENOUS, ONCE (UP TO 30 DAYS AMB), 1 dose, On Thu01/24/22 at 1500, Administer over 30 seconds. Flush line with NS after administration Refrigerate - Protect from Light. Observe patient for at least 1 hour after injection administered., Prior to the patient receiving bebtelovimab, patient has been given the Fact Sheet for Patients and Parents/Caregivers. Yes, Prior to the patient receiving bebtelovimab, patient has been informed of alternatives to receiving bebtelovimab. Yes, Prior to the patient receiving bebtelovimab, patient has been informed that bebtelovimab is an unapproved drug that is authorized for use under EUA. Yes, Prior to the patient receiving bebtelovimab, patient has been advised to continue self-isolation and infection control measures according to CDC guidelines. Yes, AMB MED ORDERS Given 01/24/2022 2:58 PM EDT 175 mg Inactive Administered Medications - up to 3 most recent administrations Medication Order MAR Action Action Date Dose Rate Site betamethasone acetate-betamethasone sodium phosphate 6 mg injection (CELESTONE) 6 mg, Injection - FOR ORTHO USE ONLY, ONE TIME INJECTION, 1 dose, Starting on Thu07/21/22 at 1433, Until Thu07/21/22 at 1433 Given 07/21/2022 2:33 PM EDT 6 mg Kn ee, Right lidocaine (PF) 10 mg/mL (1 %) 4 mL injection (XYLOCAINE) 4 mL, Injection - FOR ORTHO USE ONLY, ONE TIME INJECTION, 1 dose, Starting on Thu07/21/22 at 1433, Until 07/21/22 at 1433 Given 07/21/2022 2:33 PM EDT 4 mL Kn ee, Right Additional Source Comments (unrecognized sect ion and content) No Status Records FoundNo Status Records FoundNo Status Records FoundNo Status Records Found INFORMATION SOURCE (unrecogn ized section and content) DATE CREATED AUTHOR AUTHOR'S ORGANIZ ATION 11/22/2021 [facility] DATE CREATED AUTHOR AUTHOR'S ORGANIZ ATION 01/27/2022 [facility] DATE CREATED AUTHOR AUTHOR'S ORGANIZ ATION 04/17/2023 [facility] Source Comments (unrecognize d section and content) In the event this informatio n is protected by the Federal Confidentiality of Alcohol and Drug Abuse Patient Records regulations: The Federal rules restrict any use of the information to criminally investigate or prosecute any alcohol or drug abuse patient.[facility] the event this information is protected by the Federal Confidentiality of Alcohol and Drug Abuse Patient Records regulations: The Federal rules restrict any use of the information to criminally investigate or prosecute any alcohol or drug abuse patient.[facility] the event this information is protected by the Federal Confidentiality of Alcohol and Drug Abuse Patient Records regulations: The Federal rules restrict any use of the information to criminally investigate or prosecute any alcohol or drug abuse patient.[facility] the event this information is protected by the Federal Confidentiality of Alcohol and Drug Abuse Patient Records regulations: The Federal rules restrict any use of the information to criminally investigate or prosecute any alcohol or drug abuse patient.[facility] the event this information is protected by the Federal Confidentiality of Alcohol and Drug Abuse Patient Records regulations: The Federal rules restrict any use of the information to criminally investigate or prosecute any alcohol or drug abuse patient.[facility]In the event this information is protected by the Federal Confidentiality of Alcohol and Drug Abuse Patient Records regulations: The Federal rules restrict any use of the information to criminally investigate or prosecute any alcohol or drug abuse patient.[facility]In the event this information is protected by the Federal Confidentiality of Alcohol and Drug Abuse Patient Records regulations: The Federal rules restrict any use of the information to criminally investigate or prosecute any alcohol or drug abuse patient.[facility] the event this information is protected by the Federal Confidentiality of Alcohol and Drug Abuse Patient Records regulations: The Federal rules restrict any use of the information to criminally investigate or prosecute any alcohol or drug abuse patient.[facility] the event this information is protected by the Federal Confidentiality of Alcohol and Drug Abuse Patient Records regulations: The Federal rules restrict any use of the information to criminally investigate or prosecute any alcohol or drug abuse patient.[facility]In the event this information is protected by the Federal Confidentiality of Alcohol and Drug Abuse Patient Records regulations: The Federal rules restrict any use of the information to criminally investigate or prosecute any alcohol or drug abuse patient.[facility]In the event this information is protected by the Federal Confidentiality of Alcohol and Drug Abuse Patient Records regulations: The Federal rules restrict any use of the information to criminally investigate or prosecute any alcohol or drug abuse patient.[facility]In the event this information is protected by the Federal Confidentiality of Alcohol and Drug Abuse Patient Records regulations: The Federal rules restrict any use of the information to criminally investigate or prosecute any alcohol or drug abuse patient.[facility]In the event this information is protected by the Federal Confidentiality of Alcohol and Drug Abuse Patient Records regulations: The Federal rules restrict any use of the information to criminally investigate or prosecute any alcohol or drug abuse patient.[facility]In the event this information is protected by the Federal Confidentiality of Alcohol and Drug Abuse Patient Records regulations: The Federal rules restrict any use of the information to criminally investigate or prosecute any alcohol or drug abuse patient.[facility] HospitalIn the event this information is protected by the Federal Confidentiality of Alcohol and Drug Abuse Patient Records regulations: The Federal rules restrict any use of the information to criminally investigate or prosecute any alcohol or drug abuse patient.[facility] HospitalIn the event this information is protected by the Federal Confidentiality of Alcohol and Drug Abuse Patient Records regulations: The Federal rules restrict any use of the information to criminally investigate or prosecute any alcohol or drug abuse patient.[facility] HospitalIn the event this information is protected by the Federal Confidentiality of Alcohol and Drug Abuse Patient Records regulations: The Federal rules restrict any use of the information to criminally investigate or prosecute any alcohol or drug abuse patient.[facility] HospitalIn the event this information is protected by the Federal Confidentiality of Alcohol and Drug Abuse Patient Records regulations: The Federal rules restrict any use of the information to criminally investigate or prosecute any alcohol or drug abuse patient.[facility] HospitalIn the event this information is protected by the Federal Confidentiality of Alcohol and Drug Abuse Patient Records regulations: The Federal rules restrict any use of the information to criminally investigate or prosecute any alcohol or drug abuse patient.[facility] HospitalIn the event this information is protected by the Federal Confidentiality of Alcohol and Drug Abuse Patient Records regulations: The Federal rules restrict any use of the information to criminally investigate or prosecute any alcohol or drug abuse patient.[facility] HospitalIn the event this information is protected by the Federal Confidentiality of Alcohol and Drug Abuse Patient Records regulations: The Federal rules restrict any use of the information to criminally investigate or prosecute any alcohol or drug abuse patient.[facility] HospitalIn the event this information is protected by the Federal Confidentiality of Alcohol and Drug Abuse Patient Records regulations: The Federal rules restrict any use of the information to criminally investigate or prosecute any alcohol or drug abuse patient.[facility] HospitalIn the event this information is protected by the Federal Confidentiality of Alcohol and Drug Abuse Patient Records regulations: The Federal rules restrict any use of the information to criminally investigate or prosecute any alcohol or drug abuse patient.[facility] HospitalIn the event this information is protected by the Federal Confidentiality of Alcohol and Drug Abuse Patient Records regulations: The Federal rules restrict any use of the information to criminally investigate or prosecute any alcohol or drug abuse patient.[facility] HospitalIn the event this information is protected by the Federal Confidentiality of Alcohol and Drug Abuse Patient Records regulations: The Federal rules restrict any use of the information to criminally investigate or prosecute any alcohol or drug abuse patient.[facility] HospitalIn the event this information is protected by the Federal Confidentiality of Alcohol and Drug Abuse Patient Records regulations: The Federal rules restrict any use of the information to criminally investigate or prosecute any alcohol or drug abuse patient.[facility] HospitalIn the event this information is protected by the Federal Confidentiality of Alcohol and Drug Abuse Patient Records regulations: The Federal rules restrict any use of the information to criminally investigate or prosecute any alcohol or drug abuse patient.[facility] HospitalIn the event this information is protected by the Federal Confidentiality of Alcohol and Drug Abuse Patient Records regulations: The Federal rules restrict any use of the information to criminally investigate or prosecute any alcohol or drug abuse patient.[facility] HospitalIn the event this information is protected by the Federal Confidentiality of Alcohol and Drug Abuse Patient Records regulations: The Federal rules restrict any use of the information to criminally investigate or prosecute any alcohol or drug abuse patient.[facility] HospitalIn the event this information is protected by the Federal Confidentiality of Alcohol and Drug Abuse Patient Records regulations: The Federal rules restrict any use of the information to criminally investigate or prosecute any alcohol or drug abuse patient.[facility] HospitalIn the event this information is protected by the Federal Confidentiality of Alcohol and Drug Abuse Patient Records regulations: The Federal rules restrict any use of the information to criminally investigate or prosecute any alcohol or drug abuse patient.[facility] HospitalIn the event this information is protected by the Federal Confidentiality of Alcohol and Drug Abuse Patient Records regulations: The Federal rules restrict any use of the information to criminally investigate or prosecute any alcohol or drug abuse patient.[facility] HospitalIn the event this information is protected by the Federal Confidentiality of Alcohol and Drug Abuse Patient Records regulations: The Federal rules restrict any use of the information to criminally investigate or prosecute any alcohol or drug abuse patient.[facility] HospitalIn the event this information is protected by the Federal Confidentiality of Alcohol and Drug Abuse Patient Records regulations: The Federal rules restrict any use of the information to criminally investigate or prosecute any alcohol or drug abuse patient.[facility] HospitalIn the event this information is protected by the Federal Confidentiality of Alcohol and Drug Abuse Patient Records regulations: The Federal rules restrict any use of the information to criminally investigate or prosecute any alcohol or drug abuse patient.[facility] HospitalIn the event this information is protected by the Federal Confidentiality of Alcohol and Drug Abuse Patient Records regulations: The Federal rules restrict any use of the information to criminally investigate or prosecute any alcohol or drug abuse patient.[facility] HospitalIn the event this information is protected by the Federal Confidentiality of Alcohol and Drug Abuse Patient Records regulations: The Federal rules restrict any use of the information to criminally investigate or prosecute any alcohol or drug abuse patient.[facility] HospitalIn the event this information is protected by the Federal Confidentiality of Alcohol and Drug Abuse Patient Records regulations: The Federal rules restrict any use of the information to criminally investigate or prosecute any alcohol or drug abuse patient.[facility]In the event this information is protected by the Federal Confidentiality of Alcohol and Drug Abuse Patient Records regulations: The Federal rules restrict any use of the information to criminally investigate or prosecute any alcohol or drug abuse patient.[facility] HospitalIn the event this information is protected by the Federal Confidentiality of Alcohol and Drug Abuse Patient Records regulations: The Federal rules restrict any use of the information to criminally investigate or prosecute any alcohol or drug abuse patient.[facility] HospitalIn the event this information is protected by the Federal Confidentiality of Alcohol and Drug Abuse Patient Records regulations: The Federal rules restrict any use of the information to criminally investigate or prosecute any alcohol or drug abuse patient.[facility] HospitalIn the event this information is protected by the Federal Confidentiality of Alcohol and Drug Abuse Patient Records regulations: The Federal rules restrict any use of the information to criminally investigate or prosecute any alcohol or drug abuse patient.[facility] HospitalIn the event this information is protected by the Federal Confidentiality of Alcohol and Drug Abuse Patient Records regulations: The Federal rules restrict any use of the information to criminally investigate or prosecute any alcohol or drug abuse patient.[facility] HospitalIn the event this information is protected by the Federal Confidentiality of Alcohol and Drug Abuse Patient Records regulations: The Federal rules restrict any use of the information to criminally investigate or prosecute any alcohol or drug abuse patient.[facility] HospitalIn the event this information is protected by the Federal Confidentiality of Alcohol and Drug Abuse Patient Records regulations: The Federal rules restrict any use of the information to criminally investigate or prosecute any alcohol or drug abuse patient.[facility] HospitalIn the event this information is protected by the Federal Confidentiality of Alcohol and Drug Abuse Patient Records regulations: The Federal rules restrict any use of the information to criminally investigate or prosecute any alcohol or drug abuse patient.[facility] HospitalIn the event this information is protected by the Federal Confidentiality of Alcohol and Drug Abuse Patient Records regulations: The Federal rules restrict any use of the information to criminally investigate or prosecute any alcohol or drug abuse patient.[facility] HospitalIn the event this information is protected by the Federal Confidentiality of Alcohol and Drug Abuse Patient Records regulations: The Federal rules restrict any use of the information to criminally investigate or prosecute any alcohol or drug abuse patient.[facility] HospitalIn the event this information is protected by the Federal Confidentiality of Alcohol and Drug Abuse Patient Records regulations: The Federal rules restrict any use of the information to criminally investigate or prosecute any alcohol or drug abuse patient.[facility] HospitalIn the event this information is protected by the Federal Confidentiality of Alcohol and Drug Abuse Patient Records regulations: The Federal rules restrict any use of the information to criminally investigate or prosecute any alcohol or drug abuse patient.[facility] HospitalIn the event this information is protected by the Federal Confidentiality of Alcohol and Drug Abuse Patient Records regulations: The Federal rules restrict any use of the information to criminally investigate or prosecute any alcohol or drug abuse patient.[facility] HospitalIn the event this information is protected by the Federal Confidentiality of Alcohol and Drug Abuse Patient Records regulations: The Federal rules restrict any use of the information to criminally investigate or prosecute any alcohol or drug abuse patient.[facility] HospitalIn the event this information is protected by the Federal Confidentiality of Alcohol and Drug Abuse Patient Records regulations: The Federal rules restrict any use of the information to criminally investigate or prosecute any alcohol or drug abuse patient.[facility] HospitalIn the event this information is protected by the Federal Confidentiality of Alcohol and Drug Abuse Patient Records regulations: The Federal rules restrict any use of the information to criminally investigate or prosecute any alcohol or drug abuse patient.[facility] HospitalIn the event this information is protected by the Federal Confidentiality of Alcohol and Drug Abuse Patient Records regulations: The Federal rules restrict any use of the information to criminally investigate or prosecute any alcohol or drug abuse patient.[facility] HospitalIn the event this information is protected by the Federal Confidentiality of Alcohol and Drug Abuse Patient Records regulations: The Federal rules restrict any use of the information to criminally investigate or prosecute any alcohol or drug abuse patient.[facility] HospitalIn the event this information is protected by the Federal Confidentiality of Alcohol and Drug Abuse Patient Records regulations: The Federal rules restrict any use of the information to criminally investigate or prosecute any alcohol or drug abuse patient.[facility] HospitalIn the event this information is protected by the Federal Confidentiality of Alcohol and Drug Abuse Patient Records regulations: The Federal rules restrict any use of the information to criminally investigate or prosecute any alcohol or drug abuse patient.[facility] HospitalIn the event this information is protected by the Federal Confidentiality of Alcohol and Drug Abuse Patient Records regulations: The Federal rules restrict any use of the information to criminally investigate or prosecute any alcohol or drug abuse patient.[facility] HospitalIn the event this information is protected by the Federal Confidentiality of Alcohol and Drug Abuse Patient Records regulations: The Federal rules restrict any use of the information to criminally investigate or prosecute any alcohol or drug abuse patient.[facility] HospitalIn the event this information is protected by the Federal Confidentiality of Alcohol and Drug Abuse Patient Records regulations: The Federal rules restrict any use of the information to criminally investigate or prosecute any alcohol or drug abuse patient.[facility] HospitalIn the event this information is protected by the Federal Confidentiality of Alcohol and Drug Abuse Patient Records regulations: The Federal rules restrict any use of the information to criminally investigate or prosecute any alcohol or drug abuse patient.[facility] HospitalIn the event this information is protected by the Federal Confidentiality of Alcohol and Drug Abuse Patient Records regulations: The Federal rules restrict any use of the information to criminally investigate or prosecute any alcohol or drug abuse patient.[facility] HospitalIn the event this information is protected by the Federal Confidentiality of Alcohol and Drug Abuse Patient Records regulations: The Federal rules restrict any use of the information to criminally investigate or prosecute any alcohol or drug abuse patient.[facility] HospitalIn the event this information is protected by the Federal Confidentiality of Alcohol and Drug Abuse Patient Records regulations: The Federal rules restrict any use of the information to criminally investigate or prosecute any alcohol or drug abuse patient.[facility] HospitalIn the event this information is protected by the Federal Confidentiality of Alcohol and Drug Abuse Patient Records regulations: The Federal rules restrict any use of the information to criminally investigate or prosecute any alcohol or drug abuse patient.[facility] HospitalIn the event this information is protected by the Federal Confidentiality of Alcohol and Drug Abuse Patient Records regulations: The Federal rules restrict any use of the information to criminally investigate or prosecute any alcohol or drug abuse patient.[facility] HospitalIn the event this information is protected by the Federal Confidentiality of Alcohol and Drug Abuse Patient Records regulations: The Federal rules restrict any use of the information to criminally investigate or prosecute any alcohol or drug abuse patient.[facility] HospitalIn the event this information is protected by the Federal Confidentiality of Alcohol and Drug Abuse Patient Records regulations: The Federal rules restrict any use of the information to criminally investigate or prosecute any alcohol or drug abuse patient.[facility] HospitalIn the event this information is protected by the Federal Confidentiality of Alcohol and Drug Abuse Patient Records regulations: The Federal rules restrict any use of the information to criminally investigate or prosecute any alcohol or drug abuse patient.[facility] HospitalIn the event this information is protected by the Federal Confidentiality of Alcohol and Drug Abuse Patient Records regulations: The Federal rules restrict any use of the information to criminally investigate or prosecute any alcohol or drug abuse patient.[facility] HospitalIn the event this information is protected by the Federal Confidentiality of Alcohol and Drug Abuse Patient Records regulations: The Federal rules restrict any use of the information to criminally investigate or prosecute any alcohol or drug abuse patient.[facility] HospitalIn the event this information is protected by the Federal Confidentiality of Alcohol and Drug Abuse Patient Records regulations: The Federal rules restrict any use of the information to criminally investigate or prosecute any alcohol or drug abuse patient.[facility] HospitalIn the event this information is protected by the Federal Confidentiality of Alcohol and Drug Abuse Patient Records regulations: The Federal rules restrict any use of the information to criminally investigate or prosecute any alcohol or drug abuse patient.[facility] HospitalIn the event this information is protected by the Federal Confidentiality of Alcohol and Drug Abuse Patient Records regulations: The Federal rules restrict any use of the information to criminally investigate or prosecute any alcohol or drug abuse patient.[facility] HospitalIn the event this information is protected by the Federal Confidentiality of Alcohol and Drug Abuse Patient Records regulations: The Federal rules restrict any use of the information to criminally investigate or prosecute any alcohol or drug abuse patient.[facility]In the event this information is protected by the Federal Confidentiality of Alcohol and Drug Abuse Patient Records regulations: The Federal rules restrict any use of the information to criminally investigate or prosecute any alcohol or drug abuse patient.[facility] HospitalIn the event this information is protected by the Federal Confidentiality of Alcohol and Drug Abuse Patient Records regulations: The Federal rules restrict any use of the information to criminally investigate or prosecute any alcohol or drug abuse patient.[facility] HospitalIn the event this information is protected by the Federal Confidentiality of Alcohol and Drug Abuse Patient Records regulations: The Federal rules restrict any use of the information to criminally investigate or prosecute any alcohol or drug abuse patient.[facility] HospitalIn the event this information is protected by the Federal Confidentiality of Alcohol and Drug Abuse Patient Records regulations: The Federal rules restrict any use of the information to criminally investigate or prosecute any alcohol or drug abuse patient.[facility] HospitalIn the event this information is protected by the Federal Confidentiality of Alcohol and Drug Abuse Patient Records regulations: The Federal rules restrict any use of the information to criminally investigate or prosecute any alcohol or drug abuse patient.[facility] HospitalIn the event this information is protected by the Federal Confidentiality of Alcohol and Drug Abuse Patient Records regulations: The Federal rules restrict any use of the information to criminally investigate or prosecute any alcohol or drug abuse patient.[facility] HospitalIn the event this information is protected by the Federal Confidentiality of Alcohol and Drug Abuse Patient Records regulations: The Federal rules restrict any use of the information to criminally investigate or prosecute any alcohol or drug abuse patient.[facility] HospitalIn the event this information is protected by the Federal Confidentiality of Alcohol and Drug Abuse Patient Records regulations: The Federal rules restrict any use of the information to criminally investigate or prosecute any alcohol or drug abuse patient.[facility] HospitalIn the event this information is protected by the Federal Confidentiality of Alcohol and Drug Abuse Patient Records regulations: The Federal rules restrict any use of the information to criminally investigate or prosecute any alcohol or drug abuse patient.[facility]In the event this information is protected by the Federal Confidentiality of Alcohol and Drug Abuse Patient Records regulations: The Federal rules restrict any use of the information to criminally investigate or prosecute any alcohol or drug abuse patient.[facility] HospitalIn the event this information is protected by the Federal Confidentiality of Alcohol and Drug Abuse Patient Records regulations: The Federal rules restrict any use of the information to criminally investigate or prosecute any alcohol or drug abuse patient.[facility] HospitalIn the event this information is protected by the Federal Confidentiality of Alcohol and Drug Abuse Patient Records regulations: The Federal rules restrict any use of the information to criminally investigate or prosecute any alcohol or drug abuse patient.[facility] HospitalIn the event this information is protected by the Federal Confidentiality of Alcohol and Drug Abuse Patient Records regulations: The Federal rules restrict any use of the information to criminally investigate or prosecute any alcohol or drug abuse patient.[facility] HospitalIn the event this information is protected by the Federal Confidentiality of Alcohol and Drug Abuse Patient Records regulations: The Federal rules restrict any use of the information to criminally investigate or prosecute any alcohol or drug abuse patient.[facility] HospitalIn the event this information is protected by the Federal Confidentiality of Alcohol and Drug Abuse Patient Records regulations: The Federal rules restrict any use of the information to criminally investigate or prosecute any alcohol or drug abuse patient.[facility] HospitalIn the event this information is protected by the Federal Confidentiality of Alcohol and Drug Abuse Patient Records regulations: The Federal rules restrict any use of the information to criminally investigate or prosecute any alcohol or drug abuse patient.[facility] HospitalIn the event this information is protected by the Federal Confidentiality of Alcohol and Drug Abuse Patient Records regulations: The Federal rules restrict any use of the information to criminally investigate or prosecute any alcohol or drug abuse patient.[facility]In the event this information is protected by the Federal Confidentiality of Alcohol and Drug Abuse Patient Records regulations: The Federal rules restrict any use of the information to criminally investigate or prosecute any alcohol or drug abuse patient.[facility]In the event this information is protected by the Federal Confidentiality of Alcohol and Drug Abuse Patient Records regulations: The Federal rules restrict any use of the information to criminally investigate or prosecute any alcohol or drug abuse patient.[facility]In the event this information is protected by the Federal Confidentiality of Alcohol and Drug Abuse Patient Records regulations: The Federal rules restrict any use of the information to criminally investigate or prosecute any alcohol or drug abuse patient.[facility]In the event this information is protected by the Federal Confidentiality of Alcohol and Drug Abuse Patient Records regulations: The Federal rules restrict any use of the information to criminally investigate or prosecute any alcohol or drug abuse patient.[facility]In the event this information is protected by the Federal Confidentiality of Alcohol and Drug Abuse Patient Records regulations: The Federal rules restrict any use of the information to criminally investigate or prosecute any alcohol or drug abuse patient.[facility]In the event this information is protected by the Federal Confidentiality of Alcohol and Drug Abuse Patient Records regulations: The Federal rules restrict any use of the information to criminally investigate or prosecute any alcohol or drug abuse patient.[facility]In the event this information is protected by the Federal Confidentiality of Alcohol and Drug Abuse Patient Records regulations: The Federal rules restrict any use of the information to criminally investigate or prosecute any alcohol or drug abuse patient.[facility]In the event this information is protected by the Federal Confidentiality of Alcohol and Drug Abuse Patient Records regulations: The Federal rules restrict any use of the information to criminally investigate or prosecute any alcohol or drug abuse patient.[facility]In the event this information is protected by the Federal Confidentiality of Alcohol and Drug Abuse Patient Records regulations: The Federal rules restrict any use of the information to criminally investigate or prosecute any alcohol or drug abuse patient.[facility]In the event this information is protected by the Federal Confidentiality of Alcohol and Drug Abuse Patient Records regulations: The Federal rules restrict any use of the information to criminally investigate or prosecute any alcohol or drug abuse patient.[facility] HospitalIn the event this information is protected by the Federal Confidentiality of Alcohol and Drug Abuse Patient Records regulations: The Federal rules restrict any use of the information to criminally investigate or prosecute any alcohol or drug abuse patient.[facility]In the event this information is protected by the Federal Confidentiality of Alcohol and Drug Abuse Patient Records regulations: The Federal rules restrict any use of the information to criminally investigate or prosecute any alcohol or drug abuse patient.[facility]In the event this information is protected by the Federal Confidentiality of Alcohol and Drug Abuse Patient Records regulations: The Federal rules restrict any use of the information to criminally investigate or prosecute any alcohol or drug abuse patient.[facility]In the event this information is protected by the Federal Confidentiality of Alcohol and Drug Abuse Patient Records regulations: The Federal rules restrict any use of the information to criminally investigate or prosecute any alcohol or drug abuse patient.[facility]In the event this information is protected by the Federal Confidentiality of Alcohol and Drug Abuse Patient Records regulations: The Federal rules restrict any use of the information to criminally investigate or prosecute any alcohol or drug abuse patient.[facility]In the event this information is protected by the Federal Confidentiality of Alcohol and Drug Abuse Patient Records regulations: The Federal rules restrict any use of the information to criminally investigate or prosecute any alcohol or drug abuse patient.[facility]In the event this information is protected by the Federal Confidentiality of Alcohol and Drug Abuse Patient Records regulations: The Federal rules restrict any use of the information to criminally investigate or prosecute any alcohol or drug abuse patient.[facility]In the event this information is protected by the Federal Confidentiality of Alcohol and Drug Abuse Patient Records regulations: The Federal rules restrict any use of the information to criminally investigate or prosecute any alcohol or drug abuse patient.[facility]In the event this information is protected by the Federal Confidentiality of Alcohol and Drug Abuse Patient Records regulations: The Federal rules restrict any use of the information to criminally investigate or prosecute any alcohol or drug abuse patient.[facility]In the event this information is protected by the Federal Confidentiality of Alcohol and Drug Abuse Patient Records regulations: The Federal rules restrict any use of the information to criminally investigate or prosecute any alcohol or drug abuse patient.[facility]In the event this information is protected by the Federal Confidentiality of Alcohol and Drug Abuse Patient Records regulations: The Federal rules restrict any use of the information to criminally investigate or prosecute any alcohol or drug abuse patient.[facility]In the event this information is protected by the Federal Confidentiality of Alcohol and Drug Abuse Patient Records regulations: The Federal rules restrict any use of the information to criminally investigate or prosecute any alcohol or drug abuse patient.[facility]In the event this information is protected by the Federal Confidentiality of Alcohol and Drug Abuse Patient Records regulations: The Federal rules restrict any use of the information to criminally investigate or prosecute any alcohol or drug abuse patient.[facility]In the event this information is protected by the Federal Confidentiality of Alcohol and Drug Abuse Patient Records regulations: The Federal rules restrict any use of the information to criminally investigate or prosecute any alcohol or drug abuse patient.[facility]In the event this information is protected by the Federal Confidentiality of Alcohol and Drug Abuse Patient Records regulations: The Federal rules restrict any use of the information to criminally investigate or prosecute any alcohol or drug abuse patient.[facility]In the event this information is protected by the Federal Confidentiality of Alcohol and Drug Abuse Patient Records regulations: The Federal rules restrict any use of the information to criminally investigate or prosecute any alcohol or drug abuse patient.[facility]In the event this information is protected by the Federal Confidentiality of Alcohol and Drug Abuse Patient Records regulations: The Federal rules restrict any use of the information to criminally investigate or prosecute any alcohol or drug abuse patient.[facility]In the event this information is protected by the Federal Confidentiality of Alcohol and Drug Abuse Patient Records regulations: The Federal rules restrict any use of the information to criminally investigate or prosecute any alcohol or drug abuse patient.[facility]In the event this information is protected by the Federal Confidentiality of Alcohol and Drug Abuse Patient Records regulations: The Federal rules restrict any use of the information to criminally investigate or prosecute any alcohol or drug abuse patient.[facility] HospitalIn the event this information is protected by the Federal Confidentiality of Alcohol and Drug Abuse Patient Records regulations: The Federal rules restrict any use of the information to criminally investigate or prosecute any alcohol or drug abuse patient.[facility] HospitalIn the event this information is protected by the Federal Confidentiality of Alcohol and Drug Abuse Patient Records regulations: The Federal rules restrict any use of the information to criminally investigate or prosecute any alcohol or drug abuse patient.[facility] HospitalIn the event this information is protected by the Federal Confidentiality of Alcohol and Drug Abuse Patient Records regulations: The Federal rules restrict any use of the information to criminally investigate or prosecute any alcohol or drug abuse patient.[facility] HospitalIn the event this information is protected by the Federal Confidentiality of Alcohol and Drug Abuse Patient Records regulations: The Federal rules restrict any use of the information to criminally investigate or prosecute any alcohol or drug abuse patient.[facility] HospitalIn the event this information is protected by the Federal Confidentiality of Alcohol and Drug Abuse Patient Records regulations: The Federal rules restrict any use of the information to criminally investigate or prosecute any alcohol or drug abuse patient.[facility] HospitalIn the event this information is protected by the Federal Confidentiality of Alcohol and Drug Abuse Patient Records regulations: The Federal rules restrict any use of the information to criminally investigate or prosecute any alcohol or drug abuse patient.[facility] HospitalIn the event this information is protected by the Federal Confidentiality of Alcohol and Drug Abuse Patient Records regulations: The Federal rules restrict any use of the information to criminally investigate or prosecute any alcohol or drug abuse patient.[facility] HospitalIn the event this information is protected by the Federal Confidentiality of Alcohol and Drug Abuse Patient Records regulations: The Federal rules restrict any use of the information to criminally investigate or prosecute any alcohol or drug abuse patient.[facility] HospitalIn the event this information is protected by the Federal Confidentiality of Alcohol and Drug Abuse Patient Records regulations: The Federal rules restrict any use of the information to criminally investigate or prosecute any alcohol or drug abuse patient.[facility] HospitalIn the event this information is protected by the Federal Confidentiality of Alcohol and Drug Abuse Patient Records regulations: The Federal rules restrict any use of the information to criminally investigate or prosecute any alcohol or drug abuse patient.[facility] HospitalIn the event this information is protected by the Federal Confidentiality of Alcohol and Drug Abuse Patient Records regulations: The Federal rules restrict any use of the information to criminally investigate or prosecute any alcohol or drug abuse patient.[facility] HospitalIn the event this information is protected by the Federal Confidentiality of Alcohol and Drug Abuse Patient Records regulations: The Federal rules restrict any use of the information to criminally investigate or prosecute any alcohol or drug abuse patient.[facility] HospitalIn the event this information is protected by the Federal Confidentiality of Alcohol and Drug Abuse Patient Records regulations: The Federal rules restrict any use of the information to criminally investigate or prosecute any alcohol or drug abuse patient.[facility] HospitalIn the event this information is protected by the Federal Confidentiality of Alcohol and Drug Abuse Patient Records regulations: The Federal rules restrict any use of the information to criminally investigate or prosecute any alcohol or drug abuse patient.[facility] HospitalIn the event this information is protected by the Federal Confidentiality of Alcohol and Drug Abuse Patient Records regulations: The Federal rules restrict any use of the information to criminally investigate or prosecute any alcohol or drug abuse patient.[facility] HospitalIn the event this information is protected by the Federal Confidentiality of Alcohol and Drug Abuse Patient Records regulations: The Federal rules restrict any use of the information to criminally investigate or prosecute any alcohol or drug abuse patient.[facility] HospitalIn the event this information is protected by the Federal Confidentiality of Alcohol and Drug Abuse Patient Records regulations: The Federal rules restrict any use of the information to criminally investigate or prosecute any alcohol or drug abuse patient.[facility] HospitalIn the event this information is protected by the Federal Confidentiality of Alcohol and Drug Abuse Patient Records regulations: The Federal rules restrict any use of the information to criminally investigate or prosecute any alcohol or drug abuse patient.[facility] HospitalIn the event this information is protected by the Federal Confidentiality of Alcohol and Drug Abuse Patient Records regulations: The Federal rules restrict any use of the information to criminally investigate or prosecute any alcohol or drug abuse patient.[facility] HospitalIn the event this information is protected by the Federal Confidentiality of Alcohol and Drug Abuse Patient Records regulations: The Federal rules restrict any use of the information to criminally investigate or prosecute any alcohol or drug abuse patient.[facility] HospitalIn the event this information is protected by the Federal Confidentiality of Alcohol and Drug Abuse Patient Records regulations: The Federal rules restrict any use of the information to criminally investigate or prosecute any alcohol or drug abuse patient.[facility] HospitalIn the event this information is protected by the Federal Confidentiality of Alcohol and Drug Abuse Patient Records regulations: The Federal rules restrict any use of the information to criminally investigate or prosecute any alcohol or drug abuse patient.[facility] HospitalIn the event this information is protected by the Federal Confidentiality of Alcohol and Drug Abuse Patient Records regulations: The Federal rules restrict any use of the information to criminally investigate or prosecute any alcohol or drug abuse patient.[facility] HospitalIn the event this information is protected by the Federal Confidentiality of Alcohol and Drug Abuse Patient Records regulations: The Federal rules restrict any use of the information to criminally investigate or prosecute any alcohol or drug abuse patient.[facility] HospitalIn the event this information is protected by the Federal Confidentiality of Alcohol and Drug Abuse Patient Records regulations: The Federal rules restrict any use of the information to criminally investigate or prosecute any alcohol or drug abuse patient.[facility] HospitalIn the event this information is protected by the Federal Confidentiality of Alcohol and Drug Abuse Patient Records regulations: The Federal rules restrict any use of the information to criminally investigate or prosecute any alcohol or drug abuse patient.[facility] HospitalIn the event this information is protected by the Federal Confidentiality of Alcohol and Drug Abuse Patient Records regulations: The Federal rules restrict any use of the information to criminally investigate or prosecute any alcohol or drug abuse patient.[facility] HospitalIn the event this information is protected by the Federal Confidentiality of Alcohol and Drug Abuse Patient Records regulations: The Federal rules restrict any use of the information to criminally investigate or prosecute any alcohol or drug abuse patient.[facility] HospitalIn the event this information is protected by the Federal Confidentiality of Alcohol and Drug Abuse Patient Records regulations: The Federal rules restrict any use of the information to criminally investigate or prosecute any alcohol or drug abuse patient.[facility] HospitalIn the event this information is protected by the Federal Confidentiality of Alcohol and Drug Abuse Patient Records regulations: The Federal rules restrict any use of the information to criminally investigate or prosecute any alcohol or drug abuse patient.[facility] HospitalIn the event this information is protected by the Federal Confidentiality of Alcohol and Drug Abuse Patient Records regulations: The Federal rules restrict any use of the information to criminally investigate or prosecute any alcohol or drug abuse patient.[facility] HospitalIn the event this information is protected by the Federal Confidentiality of Alcohol and Drug Abuse Patient Records regulations: The Federal rules restrict any use of the information to criminally investigate or prosecute any alcohol or drug abuse patient.[facility] HospitalIn the event this information is protected by the Federal Confidentiality of Alcohol and Drug Abuse Patient Records regulations: The Federal rules restrict any use of the information to criminally investigate or prosecute any alcohol or drug abuse patient.[facility] HospitalIn the event this information is protected by the Federal Confidentiality of Alcohol and Drug Abuse Patient Records regulations: The Federal rules restrict any use of the information to criminally investigate or prosecute any alcohol or drug abuse patient.[facility] HospitalIn the event this information is protected by the Federal Confidentiality of Alcohol and Drug Abuse Patient Records regulations: The Federal rules restrict any use of the information to criminally investigate or prosecute any alcohol or drug abuse patient.[facility] HospitalIn the event this information is protected by the Federal Confidentiality of Alcohol and Drug Abuse Patient Records regulations: The Federal rules restrict any use of the information to criminally investigate or prosecute any alcohol or drug abuse patient.[facility] HospitalIn the event this information is protected by the Federal Confidentiality of Alcohol and Drug Abuse Patient Records regulations: The Federal rules restrict any use of the information to criminally investigate or prosecute any alcohol or drug abuse patient.[facility] HospitalIn the event this information is protected by the Federal Confidentiality of Alcohol and Drug Abuse Patient Records regulations: The Federal rules restrict any use of the information to criminally investigate or prosecute any alcohol or drug abuse patient.[facility] HospitalIn the event this information is protected by the Federal Confidentiality of Alcohol and Drug Abuse Patient Records regulations: The Federal rules restrict any use of the information to criminally investigate or prosecute any alcohol or drug abuse patient.[facility] HospitalIn the event this information is protected by the Federal Confidentiality of Alcohol and Drug Abuse Patient Records regulations: The Federal rules restrict any use of the information to criminally investigate or prosecute any alcohol or drug abuse patient.[facility] HospitalIn the event this information is protected by the Federal Confidentiality of Alcohol and Drug Abuse Patient Records regulations: The Federal rules restrict any use of the information to criminally investigate or prosecute any alcohol or drug abuse patient.[facility] HospitalIn the event this information is protected by the Federal Confidentiality of Alcohol and Drug Abuse Patient Records regulations: The Federal rules restrict any use of the information to criminally investigate or prosecute any alcohol or drug abuse patient.[facility] HospitalIn the event this information is protected by the Federal Confidentiality of Alcohol and Drug Abuse Patient Records regulations: The Federal rules restrict any use of the information to criminally investigate or prosecute any alcohol or drug abuse patient.[facility] HospitalIn the event this information is protected by the Federal Confidentiality of Alcohol and Drug Abuse Patient Records regulations: The Federal rules restrict any use of the information to criminally investigate or prosecute any alcohol or drug abuse patient.[facility] HospitalIn the event this information is protected by the Federal Confidentiality of Alcohol and Drug Abuse Patient Records regulations: The Federal rules restrict any use of the information to criminally investigate or prosecute any alcohol or drug abuse patient.[facility] HospitalIn the event this information is protected by the Federal Confidentiality of Alcohol and Drug Abuse Patient Records regulations: The Federal rules restrict any use of the information to criminally investigate or prosecute any alcohol or drug abuse patient.[facility] HospitalIn the event this information is protected by the Federal Confidentiality of Alcohol and Drug Abuse Patient Records regulations: The Federal rules restrict any use of the information to criminally investigate or prosecute any alcohol or drug abuse patient.[facility] HospitalIn the event this information is protected by the Federal Confidentiality of Alcohol and Drug Abuse Patient Records regulations: The Federal rules restrict any use of the information to criminally investigate or prosecute any alcohol or drug abuse patient.[facility] HospitalIn the event this information is protected by the Federal Confidentiality of Alcohol and Drug Abuse Patient Records regulations: The Federal rules restrict any use of the information to criminally investigate or prosecute any alcohol or drug abuse patient.[facility] HospitalIn the event this information is protected by the Federal Confidentiality of Alcohol and Drug Abuse Patient Records regulations: The Federal rules restrict any use of the information to criminally investigate or prosecute any alcohol or drug abuse patient.[facility] HospitalIn the event this information is protected by the Federal Confidentiality of Alcohol and Drug Abuse Patient Records regulations: The Federal rules restrict any use of the information to criminally investigate or prosecute any alcohol or drug abuse patient.[facility] HospitalIn the event this information is protected by the Federal Confidentiality of Alcohol and Drug Abuse Patient Records regulations: The Federal rules restrict any use of the information to criminally investigate or prosecute any alcohol or drug abuse patient.[facility] HospitalIn the event this information is protected by the Federal Confidentiality of Alcohol and Drug Abuse Patient Records regulations: The Federal rules restrict any use of the information to criminally investigate or prosecute any alcohol or drug abuse patient.[facility] HospitalIn the event this information is protected by the Federal Confidentiality of Alcohol and Drug Abuse Patient Records regulations: The Federal rules restrict any use of the information to criminally investigate or prosecute any alcohol or drug abuse patient.[facility] HospitalIn the event this information is protected by the Federal Confidentiality of Alcohol and Drug Abuse Patient Records regulations: The Federal rules restrict any use of the information to criminally investigate or prosecute any alcohol or drug abuse patient.[facility] Reason for Visit (unrecogniz ed section and content) Reason Comments Cough SOB, nausea x3 days Reason Onset Date Comments Anticoagulation Telephone Fu 07/16/2021 Reason Comments Acute Visit left hand follow up Reason Onset Date Comments Refill Request 07/17/2021 Reason Comments Imm/Inj Reason Comments F/U 3 Month Reason Onset Date Comments Anticoagulation Telephone Fu 07/30/2021 Koko e INR Result Reason Comments wheel chair request Reason Comments wheelchair assessment Reason Comments Anticoagulation Telephone Fu Home INR re sult expected Reason Comments Allied Health Visit DM Reason Comments Refill Request Reason Onset Date Comments Refill Request 09/09/2021 Reason Comments Established Patient Pain Reason Onset Date Comments Refill Request 10/08/2021 Reason Onset Date Comments Community Monitoring Outreach 10/21/2021 In sight CDM escalation Reason Onset Date Comments Community Monitoring Outreach 11/07/2021 In sight CDM escalation Reason Comments Escalation of Care Reason Comments Appointment Reason Onset Date Comments Community Monitoring Outreach 11/11/2021 Es calation Follow Up Reason Comments Scheduling Reason Comments Results A1c Reason Onset Date Comments Refill Request 11/21/2021 Reason Comments Derm Problem left foot, dry and c racked skin Reason Onset Date Comments Community Montioring Outreach 11/29/2021 In sight CDM escalation Reason Comments Patient Question Fili 2 Sensors Reason Comments Diabetes Reason Onset Date Comments Community Monitoring Outreach 12/03/2021 In Sight Escalation Follow Up Reason Comments Acute Visit Electric wheel chair consult Reason Comments Medication Question Reason Comments Patient Update Reason Comments Forms [place] Patient assist ance forms Reason Comments Chest Congestion cough, sob and fever x this am. + covid home test Reason Comments Follow Up Fili 2 reader Specialty Diagnoses / Procedures Referred By Kendra harrison Referred To Contact Diagnoses COVID-19 Procedures COVID TREATMENT REFERRAL COVID TREATMENT REFERRAL Becky Mccarthy, SHANELLE.PUPPET MAKER [address] [place] [address] Referral ID Status Reason Start Date Expiration Date Visits Requested Visits Authorized [id number] Pending Review Auto-Generat ed Referral 2 01/21/2023 1 1 Reason Comments form Date of order missin g Reason Comments Anticoagulation Telephone Fu Home INR re sult Reason Comments 6 Month Exam Reason Comments Forms Diabetic supplies Reason Comments Referral Update Reason Comments Patient Update Updated home INR met er Reason Comments Patient Question Reason Comments Release Of Medical Records Reason Comments Patient Assistance Edilia Cares (Basagla r, Keturah, Humalog) Reason Onset Date Comments community monitoring outreach 03/05/2022 CD M Escalation Reason Comments Orders Reason Comments Nausea Reason Onset Date Comments community monitoring outreach 03/06/2022 CD M -Telephonic Outreach-Follow up Escalation Reason Comments Edema Left side of face un jorge eye Reason Comments Home Health Order Request Reason Comments [place], PT plan of care FYI-No Action Needed No call back needed Reason Comments Anticoagulation Telephone Fu Home INR Reason Comments Hospital F/U Reason Comments Medication Problem Reason Comments Medication request Reason Onset Date Comments Refill Request 04/26/2022 Reason Comments Home Health update Reason Comments Acute Visit Hematuria and Stool Reason Comments verbal order Reason Onset Date Comments Anticoagulation Telephone Fu 05/07/2022 Koko e INR Result Reason Comments Results Urine Reason Onset Date Comments community monitoring outreach 05/12/2022 CD M-Escalation Reason Comments Acute Visit weight gain and SOB Reason Onset Date Comments community monitoring outreach 05/13/2022 CD M-Escalation follow up Reason Comments Anticoagulation Telephone Fu Home INR Reason Onset Date Comments Refill Request 05/21/2022 Reason Comments Medication Clarification Reason Comments Patient Assistance Reason Onset Date Comments Refill Request 05/23/2022 Reason Comments [place]/ verbal orders Reason Onset Date Comments CDM Escalation 05/29/2022 CDM [facility] Questio nnaire Triggered Escalation Reason Onset Date Comments community monitoring outreach 05/30/2022 CD M-Escalation follow up Reason Comments Results Reason Comments [place], plan of care for nursing Reason Comments patient assistance program/humalog Reason Comments Follow Up 2 month f/u-CHF Reason Comments Humalog problem Reason Comments Patient Update CGM sensors Reason Comments Forms Reason Onset Date Comments Refill Request 07/09/2022 Reason Comments Follow Up Knee Pain Reason Comments Hematuria Reason Comments [facility] HH request VO Reason Comments Anticoagulation Perioperative Manage ment Reason Comments home health requesting verbal order Reason Onset Date Comments Refill Request 09/19/2022 Reason Comments F/U 3 months Reason Comments 11/28/2022 COLON/EGD WHITE Reason Comments Consult EGD and colonoscopy Specialty Diagnoses / Procedures Referred By Contac t Referred To Contact General Surgery Diagnoses Black stool Procedures CONSULT TO GENERAL SURGERY OFFICE/OUTPATIENT [facility] 60-74 MINUTES Shereen Holt, PARAFFIN 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.PUPPET MAKER [address] [place] [address] Referral ID Status Reason Start Date Expiration Date V isits Requested Visits Authorized [id number] Closed PCP Requested Referral 10/09/2022 10/09/2023 1 1 Reason Onset Date Comments Refill Request 10/28/2022 Reason Onset Date Comments Home health update 11/10/2022 Refill Request 11/10/2022 Reason Onset Date Comments Refill Request 11/11/2022 Reason Comments OT plan of care Reason Onset Date Comments Transition Of Care 11/11/2022 Reason Comments PT plan of care Reason Comments Weight increase today Reason Comments Transition Of Care Reason Comments Home Health Update Reason Onset Date Comments Refill Request 11/28/2022 Reason Comments Coumadin Question Reason Comments Patient Request Reason Onset Date Comments Refill Request 12/29/2022 Reason Comments Patient Update Patient Question Reason Comments home health calling for verbal order Reason Comments medication question Shortness of Breath Reason Onset Date Comments community monitoring outreach 02/10/2023 CD M-Telephonic outreach Reason Comments ED Follow-up [facility] ER for SOB Reason Comments Anticoagulation Restarted coumadin t lefty, will check INR in 1 week. Reason Onset Date Comments Refill Request 02/23/2023 Reason Comments Anticoagulation Home INR Care Teams (unrecognized sec tion and content) Relations Coordinator Relationship Specialty Start Date End Date Ramiro Null, PARAFFIN 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.PUPPET MAKER, DNP [address] [place], [place] [id number] PCP - General Family Practice 02/12/21 [facility] [address] [place] [place] [address] Pharmacist Pharmacy 10/13/19 13, Pharmacist [phone] [facility] [place] [address] Pharmacy 12/06/19 May Garcia, calibration technicianCustomer Care Consultant 11/28/20 [place], [place] [address] [facility] [place] [address] Specialty Compounding Scaler Cardiology 01/13/21 Relations Coordinator Relationship Specialty Start Date End Date Ramiro Null APRN.PUPPET MAKER, DNP [address] [place] [address] PCP - General Family Practice 02/12/21 [facility] [address] [place] [address] Pharmacist Pharmacy 10/13/19 13, Pharmacist [id number] [facility] [place] [address] Pharmacy 12/06/19 May Garcia, calibration technicianCustomer Care Consultant 11/28/20 [place], [place] S [address] [place] [address] Specialty Compounding Scaler Cardiology 01/13/21 Relations Coordinator Relationship Specialty Start Date End Date Ramiro Null APRN.PUPPET MAKER, DNP [address] [place] [address] PCP - General Family Practice 02/12/21 [facility] [address] [place] [address] Pharmacist Pharmacy 10/13/19 13, Pharmacist [id number] [facility] [place] [address] Pharmacy 12/06/19 May Garcia, calibration technicianCustomer Care Consultant 11/28/20 [place], [place] [address] [facility] [place] [address] Specialty Compounding Scaler Cardiology 01/13/21 Relations Coordinator Relationship Specialty Start Date End Date Ramiro Null APRN.PUPPET MAKER, DNP [address] [facility] [place] [address] PCP - General Family Practice 02/12/21 [facility] [address] [facility] [place] [address] Pharmacist Pharmacy 10/13/19 13, Pharmacist [id number] [facility] [place] [address] Pharmacy 12/06/19 May Garcia, calibration technicianCustomer Care Consultant 11/28/20 [facility], [place] [address] [place] [place] [address] Specialty Compounding Scaler Cardiology 01/13/21 Relations Coordinator Relationship Specialty Start Date End Date Ramiro Null APRN.PUPPET MAKER, DNP [address] [place] [place] [address] PCP - General Family Practice 02/12/21 [facility] [address] [facility] [place] [address] Pharmacist Pharmacy 10/13/19 13, Pharmacist [address] [facility] [place] [address] Pharmacy 12/06/19 May Garcia, calibration technicianCustomer Care Consultant 11/28/20 [place], Johan S [address] [place] [address] Specialty Compounding Scaler Cardiology 01/13/21 Relations Coordinator Relationship Specialty Start Date End Date Ramiro Null APRN.RODRIGUEZ, DNP [address] [place] [address] PCP - General Family Practice 02/12/21 [facility] [address] [place] [address] Pharmacist Pharmacy 10/13/19 13, Pharmacist [address] [facility] [place] [address] Pharmacy 12/06/19 May Garcia, calibration technicianCustomer Care Consultant 11/28/20 [place], San Juan S [address] [place] [address] Specialty Compounding Scaler Cardiology 01/13/21 Relations Coordinator Relationship Specialty Start Date End Date Ramiro Null, SHANELLE.FAIZA FRIAS [address] [place] [address] PCP - General Family Practice 02/12/21 [facility] [address] [place] [address] Pharmacist Pharmacy 10/13/19 13, Pharmacist [address] [facility] [place] [address] Pharmacy 12/06/19 May Garcia RN [address] [place], [place] [phone] Customer Care Consultant 11/28/20 [place], Johan S [address] [place] [address] Specialty Compounding Scaler Cardiology 01/13/21 Relations Coordinator Relationship Specialty Start Date End Date Ramiro Null, PARAFFIN 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.FAIZA FRIAS [address] [place] [address] PCP - General Family Practice 02/12/21 [facility] [address] [place] [address] Pharmacist Pharmacy 10/13/19 13, Pharmacist [address] [facility] [place] [address] Pharmacy 12/06/19 May Garcia RN [address] [place], [place] [phone] Customer Care Consultant 11/28/20 [place], Johan S [address] [place] [address] Specialty Compounding Scaler Cardiology 01/13/21 Relations Coordinator Relationship Specialty Start Date End Date Ramiro Null APRN.RODRIGUEZ, DNP [address] [place] [address] PCP - General Family Practice 02/12/21 [facility] [address] [place] [address] Pharmacist Pharmacy 10/13/19 13, Pharmacist [address] [facility] [place] [address] Pharmacy 12/06/19 May Garcia RN [address] [place] [address] Customer Care Consultant 11/28/20 [place], Johan S [address] [place] [address] Specialty Compounding Scaler Cardiology 01/13/21 Relations Coordinator Relationship Specialty Start Date End Date Ramiro Null APRN.RODRIGUEZ, DNP [address] [place] [address] PCP - General Family Practice 02/12/21 [facility]CholoChildren[facility] [address] [place] [address] Pharmacist Pharmacy 10/13/19 13, Pharmacist [address] [facility] [place] [address] Pharmacy 12/06/19 May Garcia RN [address] [place] [address] Customer Care Consultant 11/28/20 [place], Johan S [address] [facility] [place] [address] Specialty Compounding Scaler Cardiology 01/13/21 Relations Coordinator Relationship Specialty Start Date End Date Ramiro Null, PARAFFIN 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.PUPPET MAKER, DNP [address] [place] [place] [address] PCP - General Family Practice 02/12/21 [facility] [address] [facility] [place] [address] Pharmacist Pharmacy 10/13/19 13, Pharmacist [address] [facility] [place] [address] Pharmacy 12/06/19 May Garcia RN [address] [place] [address] Customer Care Consultant 11/28/20 [place], Johan S [address] [place] [address] Specialty Compounding Scaler Cardiology 01/13/21 Relations Coordinator Relationship Specialty Start Date End Date Ramiro Null, PARAFFIN 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.PUPPET MAKER, DNP [address] [place] [place] [address] PCP - General Family Practice 02/12/21 [facility] [address] [facility] [place] [address] Pharmacist Pharmacy 10/13/19 13, Pharmacist [address] [facility] [place] [address] Pharmacy 12/06/19 May Garcia RN [address] [facility] [place] [address] Customer Care Consultant 11/28/20 [place], [place] S [address] [facility] [place] [address] Specialty Compounding Scaler Cardiology 01/13/21 Relations Coordinator Relationship Specialty Start Date End Date Ramiro Null, PARAFFIN 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.FAIZA FRIAS [address] [place] [address] PCP - General Family Practice 02/12/21 [facility] [address] [place] [address] Pharmacist Pharmacy 10/13/19 13, Pharmacist [address] [place] [address] Pharmacy 12/06/19 May Garcia RN [address] [place] [address] Customer Care Consultant 11/28/20 [place], Johan S [address] [facility] [place] [facility] [place] [address] Specialty Compounding Scaler Cardiology 01/13/21 Relations Coordinator Relationship Specialty Start Date End Date Ramiro Null, PARAFFIN 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.FAIZA FRIAS [address] [place] [address] PCP - General Family Practice 02/12/21 [facility] [address] [place] [place] [address] Pharmacist Pharmacy 10/13/19 13, Pharmacist [address] [facility] [place] [address] Pharmacy 12/06/19 May Garcia RN [address] [place] [address] Customer Care Consultant 11/28/20 [place], [place] S [address] [facility] [place] [address] Specialty Compounding Scaler Cardiology 01/13/21 Relations Coordinator Relationship Specialty Start Date End Date Ramiro Null, SHANELLE.PUPPET MAKER, DNP [address] [place] [address] PCP - General Family Practice 02/12/21 [facility] [address] [place] [address] Pharmacist Pharmacy 10/13/19 13, Pharmacist [address] [facility] [place] [address] Pharmacy 12/06/19 May Garcia RN [address] [place], [place] [phone] Customer Care Consultant 11/28/20 [place], [place] S [address] [place] [address] Specialty Compounding Scaler Cardiology 01/13/21 Relations Coordinator Relationship Specialty Start Date End Date Ramiro Null, SHANELLE.RODRIGUEZ, DNP [address] [place] [address] PCP - General Family Practice 02/12/21 [facility]eeKind[facility] [address] [place] [address] Pharmacist Pharmacy 10/13/19 13, Pharmacist [address] [facility] [place] [address] Pharmacy 12/06/19 May Garcia RN [address] [place] [address] Customer Care Consultant 11/28/20 [place], [place] S [address] [place] [address] Specialty Compounding Scaler Cardiology 01/13/21 Relations Coordinator Relationship Specialty Start Date End Date Ramiro Null, PARAFFIN 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.RODRIGUEZ, DNP [address] [place] [address] PCP - General Family Practice 02/12/21 Felipejonh [facility]oloChildren's [facility] [address] [place] [place] [address] Pharmacist Pharmacy 10/13/19 13, Pharmacist [address] [facility] [place] [address] Pharmacy 12/06/19 May Garcia RN [address] [place], [place] 8906131 Customer Care Consultant 11/28/20 [place], Johan S [address] [place] [address] Specialty Compounding Scaler Cardiology 01/13/21 Relations Coordinator Relationship Specialty Start Date End Date Ramiro Null, PARAFFIN 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.RODRIGUEZ, DNP [address] [place] [address] PCP - General Family Practice 02/12/21 Felipe [facility]oloChildren[facility] [address] [place] [place] [address] Pharmacist Pharmacy 10/13/19 13, Pharmacist [address] [facility] [place] [address] Pharmacy 12/06/19 May Garcia RN [address] [place], [place] [phone] Customer Care Consultant 11/28/20 [place], [place] S [address] [facility] [place] [address] Specialty Compounding Scaler Cardiology 01/13/21 Del Ayala [address] [facility] [place] [address] [employer]ander [employer] Pulmonary Disease 11/11/21 Relations Coordinator Relationship Specialty Start Date End Date Ramiro Null, SHANELLE.RODRIGUEZ, DNP [address] [place] [address] PCP - General Family Practice 02/12/21 [facility] [address] [place] [place] [address] Pharmacist Pharmacy 10/13/19 13, Pharmacist [address] [facility] [place] [address] Pharmacy 12/06/19 May Garcia RN [address] [place], [place] 4431131 Customer Care Consultant 11/28/20 [place], Johan S [address] [facility] [place] [address] Specialty Compounding Scaler Cardiology 01/13/21 Del Ayala [address] [place] [address] [employer]ander [employer] Pulmonary Disease 11/11/21 Relations Coordinator Relationship Specialty Start Date End Date Ramiro Null, SHANELLE.RODRIGUEZ, DNP [address] [place] [address] PCP - General Family Practice 02/12/21 [facility]CholoChildren[facility] [address] [place] [place] [address] Pharmacist Pharmacy 10/13/19 13, Pharmacist 23216 [facility] [place] [address] Pharmacy 12/06/19 May Garcia RN [address] [place], [place] [phone] Customer Care Consultant 11/28/20 [place], Johan S [address] [place] [address] Specialty Compounding Scaler Cardiology 01/13/21 Del Ayala [address] [place] [address] [employer]ander [employer] Pulmonary Disease 11/11/21 Relations Coordinator Relationship Specialty Start Date End Date Ramiro Null, PARAFFIN 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.PUPPET MAKER, DNP [address] [place] [place] [address] PCP - General Family Practice 02/12/21 [facility] [address] [place] [place] [address] Pharmacist Pharmacy 10/13/19 13, Pharmacist [address]66 [place] [address] Pharmacy 12/06/19 May Garcia RN [address] [place] [phone] Customer Care Consultant 11/28/20 Johan Perry [address] [place] [place] [address] Specialty Compounding Scaler Cardiology 01/13/21 Del Ayala [address] [place] [address] [employer] Pulmonary Disease 11/11/21 Relations Coordinator Relationship Specialty Start Date End Date Ramiro Null, PARAFFIN 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.PUPPET MAKER, DNP [address] [place] [address] PCP - General Family Practice 02/12/21 [facility] [address] [place] [address] Pharmacist Pharmacy 10/13/19 13, Pharmacist [address]887 [place] [address] Pharmacy 12/06/19 May Garcia RN [address] [place] [address] Customer Care Consultant 11/28/20 [place], [place] S [address] [place] [address] Specialty Compounding Scaler Cardiology 01/13/21 Del Ayala [address] [place] [address] [employer]ander [employer] Pulmonary Disease 11/11/21 Relations Coordinator Relationship Specialty Start Date End Date Ramiro Null, SHANELLE.PUPPET MAKER, DNP [address] [facility] [place] [address] PCP - General Family Practice 02/12/21 [facility] [address] [place] [address] Pharmacist Pharmacy 10/13/19 13, Pharmacist [address] [facility] [place] [address] Pharmacy 12/06/19 May Garcia RN [address] [place], [place] [phone] Customer Care Consultant 11/28/20 [place], [place] S [address] [facility] [place] [address] Specialty Compounding Scaler Cardiology 01/13/21 Del Ayala [address] [place] [address] [employer] Pulmonary Disease 11/11/21 Relations Coordinator Relationship Specialty Start Date End Date Ramiro Null, PARAFFIN 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.PUPPET MAKER, DNP [address] [place] [address] PCP - General Family Practice 02/12/21 [facility] [address] [place] [address] Pharmacist Pharmacy 10/13/19 13, Pharmacist [address] [place] [address] Pharmacy 12/06/19 May Garcia RN [address] [place] [address] Customer Care Consultant 11/28/20 [place], [place] S [address] [place] [address] Specialty Compounding Scaler Cardiology 01/13/21 Del Ayala [address] [place] [place] [address] [employer]ander [employer] Pulmonary Disease 11/11/21 Relations Coordinator Relationship Specialty Start Date End Date Ramiro Null APRN.PUPPET MAKER, DNP [address] [place] [address] PCP - General Family Practice 02/12/21 [facility] [address] [place] [address] Pharmacist Pharmacy 10/13/19 13, Pharmacist [address]808 [place] [address] Pharmacy 12/06/19 May Garcia RN [address] [place] [address] Customer Care Consultant 11/28/20 [place], [place] S [address] [place] [address] Specialty Compounding Scaler Cardiology 01/13/21 Del Ayala [address] [place] [address] [employer] Pulmonary Disease 11/11/21 Relations Coordinator Relationship Specialty Start Date End Date Trev Patino MD [address] [place] [address] PCP - General Family Practice 12/12/21 [facility] [address] [place] [address] Pharmacist Pharmacy 10/13/19 13, Pharmacist 16822 [place] [address] Pharmacy 12/06/19 May Garcia, RN [address] [place] [address] Customer Care Consultant 11/28/20 [place], Johan S [address] [place] [address] Specialty Compounding Scaler Cardiology 01/13/21 Del Ayala [address] [place] [address] [employer] Pulmonary Disease 11/11/21 Relations Coordinator Relationship Specialty Start Date End Date Trev Patino MD [address] [place] [address] PCP - General Family Medicine 12/12/21 [facility] [address] [place] [address] Pharmacist Pharmacy 10/13/19 13, Pharmacist [address] [facility] [address] Pharmacy 12/06/19 May Garcia RN [address] [place], [place] [phone] Customer Care Consultant 11/28/20 [place], Johan S [address] [place] [address] Specialty Compounding Scaler Cardiology 01/13/21 Del Ayala [address] [place] [address] [employer] Pulmonary Disease 11/11/21 Relations Coordinator Relationship Specialty Start Date End Date Trev Patino MD [address] [place] [address] PCP - General Family Medicine 12/12/21 [facility] [address] [place] [address] Pharmacist Pharmacy 10/13/19 13, Pharmacist [address]36 [place] [address] Pharmacy 12/06/19 May Garcia RN [address] [place] [address] Customer Care Consultant 11/28/20 Johan Perry [address] [place] [address] Specialty Compounding Scaler Cardiology 01/13/21 Del Ayala [address] [place] [address] [employer] Pulmonary Disease 11/11/21 Relations Coordinator Relationship Specialty Start Date End Date Trev Patino MD [address] [place] [address] PCP - General Family Medicine 12/12/21 [facility] [address] [place] [address] Pharmacist Pharmacy 10/13/19 13, Pharmacist 33032 [place] [address] Pharmacy 12/06/19 May Garcia RN [address] [place] [address] Customer Care Consultant 11/28/20 [place], Johan S [address] [facility] [place] [address] Specialty Compounding Scaler Cardiology 01/13/21 Del Ayala [address] [place] [address] [employer]ander [employer] Pulmonary Disease 11/11/21 Relations Coordinator Relationship Specialty Start Date End Date Trev Patino MD [address] [place] [address] PCP - General Family Medicine 12/12/21 [facility] [address] [place] [address] Pharmacist Pharmacy 10/13/19 13, Pharmacist [address] [place] [address] Pharmacy 12/06/19 May Garcia, RN [address] [place] [address] Customer Care Consultant 11/28/20 [place], [place] S [address] [place] [address] Specialty Compounding Scaler Cardiology 01/13/21 Del Ayala [address] [place] [address] [employer]ander [employer] Pulmonary Disease 11/11/21 Relations Coordinator Relationship Specialty Start Date End Date Trev Patino MD [address] [place] [address] PCP - General Family Medicine 12/12/21 [facility] [address] [place] [address] Pharmacist Pharmacy 10/13/19 13, Pharmacist [address]86 [place] [address] Pharmacy 12/06/19 May Garcia RN [address] [place], [place] [phone] Customer Care Consultant 11/28/20 [place], [place] S [address] [facility] [place] [address] Specialty Compounding Scaler Cardiology 01/13/21 Del Ayala [address] [place] [address] [employer] Pulmonary Disease 11/11/21 Relations Coordinator Relationship Specialty Start Date End Date Trev Patino MD [address] [place] [address] PCP - General Family Medicine 12/12/21 [facility] [address] [place] [address] Pharmacist Pharmacy 10/13/19 13, Pharmacist [address]51 [place] [address] Pharmacy 12/06/19 May Garcia RN [address] [place] [address] Customer Care Consultant 11/28/20 [place], Johan S [address] [facility] [place] [address] Specialty Compounding Scaler Cardiology 01/13/21 Del Ayala [address] [place] [address] [employer] Pulmonary Disease 11/11/21 Relations Coordinator Relationship Specialty Start Date End Date Trev Patino MD [address] [place] [address] PCP - General Family Medicine 12/12/21 Deedee [facility]peiChildren[facility] [address] [place] [address] Pharmacist Pharmacy 10/13/19 13, Pharmacist [address]51 [place] [address] Pharmacy 12/06/19 May Garcia RN [address] [place] [address] Customer Care Consultant 11/28/20 [place], [place] S [address] [facility] [place] [address] Specialty Compounding Scaler Cardiology 01/13/21 Del Ayala [address] [address] [employer] Pulmonary Disease 11/11/21 Relations Coordinator Relationship Specialty Start Date End Date Trev Patino MD [address] [place] [address] PCP - General Family Medicine 12/12/21 Felipe DeedeethiChildren's [facility] [address] [place] [address] Pharmacist Pharmacy 10/13/19 13, Pharmacist [address]707 [place] [address] Pharmacy 12/06/19 May Garcia RN [address] [place] [address] Customer Care Consultant 11/28/20 [place], Johan S [address] [facility] [place] [address] Specialty Compounding Scaler Cardiology 01/13/21 Del Ayala [address] [place] [address] [employer] Pulmonary Disease 11/11/21 Relations Coordinator Relationship Specialty Start Date End Date Trev Patino MD [address] [place] [address] PCP - General Family Medicine 12/12/21 [facility] [address] [place] [address] Pharmacist Pharmacy 10/13/19 13, Pharmacist [address]26 [place] [address] Pharmacy 12/06/19 May Garcia RN [address] [place], [place] [phone] Customer Care Consultant 11/28/20 [place], [place] S [address] [place] [address] Specialty Compounding Scaler Cardiology 01/13/21 Del Ayala [address] [place] [address] [employer] Pulmonary Disease 11/11/21 Relations Coordinator Relationship Specialty Start Date End Date Trev Patino MD [address] [place] [address] PCP - General Family Medicine 12/12/21 [facility] [address] [place] [address] Pharmacist Pharmacy 10/13/19 13, Pharmacist [address] [facility] [place] [address] Pharmacy 12/06/19 May Garcia RN 6[address] [place], [place] [phone] Customer Care Consultant 11/28/20 [place], Johan S [address] [place] [address] Specialty Compounding Scaler Cardiology 01/13/21 Del Ayala [address] [place] [address] [employer] Pulmonary Disease 11/11/21 Relations Coordinator Relationship Specialty Start Date End Date Trev Patino MD [address] [place] [address] PCP - General Family Medicine 12/12/21 [facility] [address] [place] [address] Pharmacist Pharmacy 10/13/19 13, Pharmacist [address]90 [place] [address] Pharmacy 12/06/19 May Garcia RN 6[address] [place] [address] Customer Care Consultant 11/28/20 [place], [place] S [address] [place] [address] Specialty Compounding Scaler Cardiology 01/13/21 Del Ayala [address] [place] [address] [employer]ander [employer] Pulmonary Disease 11/11/21 Relations Coordinator Relationship Specialty Start Date End Date Trev Patino MD [address] [place] [address] PCP - General Family Medicine 12/12/21 [facility] [address] [place] [address] Pharmacist Pharmacy 10/13/19 13, Pharmacist [address]253 [place] [address] Pharmacy 12/06/19 [place], Johan S [address] [place] [address] Specialty Compounding Scaler Cardiology 01/13/21 Del Ayala [address] [place] [address] [employer] Pulmonary Disease 11/11/21 Kalia Ambrocio RN [address]000 [place], [place] [phone] Customer Care Consultant Family Medicine 11/28/20 Relations Coordinator Relationship Specialty Start Date End Date Trev Patino MD [address] [place] [address] PCP - General Family Medicine 12/12/21 [facility] [address] [place] [address] Pharmacist Pharmacy 10/13/19 13, Pharmacist [address]473 [place] [address] Pharmacy 12/06/19 Balaji Perryril S [address] [place] [address] Specialty Compounding Scaler Cardiology 01/13/21 Del Ayala [address] [place] [address] [employer] Pulmonary Disease 11/11/21 Kalia Ambrocio RN [address] [place] [address] Customer Care Consultant Family Medicine 11/28/20 Relations Coordinator Relationship Specialty Start Date End Date Trev Patino MD [address] [place] [address] PCP - General Family Medicine 12/12/21 [facility] [address] [place] [address] Pharmacist Pharmacy 10/13/19 13, Pharmacist [address]89 [place] [address] Pharmacy 12/06/19 [place], Johan S [address] [place] [address] Specialty Compounding Scaler Cardiology 01/13/21 Del Ayala [address] [place] [address] [employer]ander [employer] Pulmonary Disease 11/11/21 Kalia Ambrocio, RN [address] [place], [place] [phone] Customer Care Consultant Family Medicine 11/28/20 Relations Coordinator Relationship Specialty Start Date End Date Trev Patino MD [address] [place] [address] PCP - General Family Medicine 12/12/21 Cholo Thorpe [facility] [address] [place] [address] Pharmacist Pharmacy 10/13/19 13, Pharmacist [address]198 [place] [address] Pharmacy 12/06/19 May Garcia RN 6[address] [place] [address] Customer Care Consultant 11/28/2001/29/22 [place], [place] S [address] [place] [address] Specialty Compounding Scaler Cardiology 01/13/21 Del Ayala [address] [place] [address] [employer] Pulmonary Disease 11/11/21 Kalia Ambrocio, RN [address] [place], [place] [phone] Customer Care Consultant Family Medicine 11/28/20 Relations Coordinator Relationship Specialty Start Date End Date Trev Patino MD [address] [place] [address] PCP - General Family Medicine 12/12/21 [facility] [address] [place] [address] Pharmacist Pharmacy 10/13/19 13, Pharmacist 26973 [place] [address] Pharmacy 12/06/19 [place], Johan S [address] [place] [address] Specialty Compounding Scaler Cardiology 01/13/21 Del Ayala [facility] [place] [address] [employer] Pulmonary Disease 11/11/21 Kalia Ambrocio RN 6000 [place], [place] [phone] Customer Care Consultant Family Medicine 11/28/20 Relations Coordinator Relationship Specialty Start Date End Date Trev Patino MD [address] [place] [address] PCP - General Family Medicine 12/12/21 [facility] [address] [place] [address] Pharmacist Pharmacy 10/13/19 13, Pharmacist [address]04 [place] [address] Pharmacy 12/06/19 [place], [place] S [address] [place] [address] Specialty Compounding Scaler Cardiology 01/13/21 Del Ayala [address] [place] [address] Sander [employer]en Pencils Pulmonary Disease 11/11/21 Kalia Ambrocio RN [address] [place] [address] Customer Care Consultant Family Medicine 11/28/20 Relations Coordinator Relationship Specialty Start Date End Date Trev Patino MD [address] [place] [address] PCP - General Family Medicine 12/12/21 [facility] [address] [place] [address] Pharmacist Pharmacy 10/13/19 13, Pharmacist [address] [place] [address] Pharmacy 12/06/19 [place], Johan S [address] [place] [address] Specialty Compounding Scaler Cardiology 01/13/21 Del Ayala [address] [place] [address] Sander [employer]en Pencils Pulmonary Disease 11/11/21 Kalia Ambrocio RN [address] [place] [address] Customer Care Consultant Family Medicine 11/28/20 Relations Coordinator Relationship Specialty Start Date End Date Trev Patino MD [address] [place] [address] PCP - General Family Medicine 12/12/21 Cholo Thorpe, [facility] [address] [place] [address] Pharmacist Pharmacy 10/13/19 13, Pharmacist [address] [place] [address] Pharmacy 12/06/19 [place], San Juan S [address] [facility] [place] [address] Specialty Compounding Scaler Cardiology 01/13/21 Del Ayala [address] [place] [address] [employer]ander [employer] Pencils Pulmonary Disease 11/11/21 Kalia Ambrocio RN [address] [place], [place] [phone] Customer Care Consultant Family Medicine 11/28/20 Relations Coordinator Relationship Specialty Start Date End Date Trev Patino MD [address] [place] [address] PCP - General Family Medicine 12/12/21 Cholo Thorpe, [facility] [address] [place] [address] Pharmacist Pharmacy 10/13/19 13, Pharmacist [address] [place] [address] Pharmacy 12/06/19 Orlando, San Juan S [address] [place] [address] Specialty Compounding Scaler Cardiology 01/13/21 Del Ayala [address] [place] [address] [employer]ander [employer] Pencils Pulmonary Disease 11/11/21 Kalia Ambrocio RN [address] [place] [address] Customer Care Consultant Family Medicine 11/28/20 Relations Coordinator Relationship Specialty Start Date End Date Trev Patino MD [address] [place] [address] PCP - General Family Medicine 12/12/21 Cholo Thorpe, [facility] [address] [place] [address] Pharmacist Pharmacy 10/13/19 13, Pharmacist [address]756 [place] [address] Pharmacy 12/06/19 [place], San Juan S [address] [facility] [place] [address] Specialty Compounding Scaler Cardiology 01/13/21 Del Ayala [address] [facility] [place] [address] [employer]ander [employer] Pencils Pulmonary Disease 11/11/21 Kalia mAbrocio RN [address] [place], [place] [phone] Customer Care Consultant Family Medicine 11/28/20 Relations Coordinator Relationship Specialty Start Date End Date Trev Patino MD [address] [place] [address] PCP - General Family Medicine 12/12/21 [facility] [address] [place] [address] Pharmacist Pharmacy 10/13/19 13, Pharmacist [address]146 [place] [address] Pharmacy 12/06/19 Orlando, Johan S [address] [facility] [place] [address] Specialty Compounding Scaler Cardiology 01/13/21 Del Ayala [address] [facility] [place] [address] [employer] Pencils Pulmonary Disease 11/11/21 Kalia Ambrocio RN [address] [place] [address] Customer Care Consultant Family Medicine 01/29/22 Relations Coordinator Relationship Specialty Start Date End Date Trev Patino MD [address] [place] [address] PCP - General Family Medicine 12/12/21 [facility] [address] [place] [address] Pharmacist Pharmacy 10/13/19 13, Pharmacist [address] [place] [address] Pharmacy 12/06/19 Orlando, San Juan S [address] [facility] [place] [address] Specialty Compounding Scaler Cardiology 01/13/21 Del Ayala [address] [place] [address] [employer]ander [employer] Pencils Pulmonary Disease 11/11/21 Kalia Ambrocio RN [address] [place], [place] 6503931 Customer Care Consultant Family Medicine 01/29/22 Relations Coordinator Relationship Specialty Start Date End Date Trev Patino MD [address] [place] [address] PCP - General Family Medicine 12/12/21 Cholo Thorpe, [facility] [address] [place] [address] Pharmacist Pharmacy 10/13/19 13, Pharmacist [address] [place] [address] Pharmacy 12/06/19 Orlando, Johan S [address] [place] [address] Specialty Compounding Scaler Cardiology 01/13/21 Del Ayala [address] [place] [address] [employer]ander [employer] Pencils Pulmonary Disease 11/11/21 Kalia Ambrocio RN [address] [place], [place] 4561131 Customer Care Consultant Family Medicine 01/29/22 Relations Coordinator Relationship Specialty Start Date End Date Trev Patino MD [address] [place] [address] PCP - General Family Medicine 12/12/21 [facility] [address] [place] [address] Pharmacist Pharmacy 10/13/19 13, Pharmacist [address]6833 [place] [address] Pharmacy 12/06/19 Orlando, San Juan S [address] [place] [address] Specialty Compounding Scaler Cardiology 01/13/21 Del Ayala [address] [place] [address] Sander [employer] Pencils Pulmonary Disease 11/11/21 Kalia Ambrocio RN [address] [place] [address] Customer Care Consultant Family Medicine 01/29/22 Relations Coordinator Relationship Specialty Start Date End Date Trev Patino MD [address] [place] [address] PCP - General Family Medicine 12/12/21 [facility] [address] [place] [address] Pharmacist Pharmacy 10/13/19 13, Pharmacist [address]2600 [place] [address] Pharmacy 12/06/19 Orlando, San Juan S [address] [place] [address] Specialty Compounding Scaler Cardiology 01/13/21 Del Ayala [address] [place] [address] [employer]ander [employer] Pencils Pulmonary Disease 11/11/21 Kalia Ambrocio RN [address] [place] [address] Customer Care Consultant Family Medicine 01/29/22 Relations Coordinator Relationship Specialty Start Date End Date Trev Patino MD [address] [place] [address] PCP - General Family Medicine 12/12/21 [facility] [address] [place] [address] Pharmacist Pharmacy 10/13/19 13, Pharmacist [address]8730 [place] [address] Pharmacy 12/06/19 Orlando, Johan S [address] [place] [address] Specialty Compounding Scaler Cardiology 01/13/21 Del Ayala [address] [place] [address] Sander [employer]en Pencils Pulmonary Disease 11/11/21 Kalia Ambrocio, RN [address] [place] [address] Customer Care Consultant Family Medicine 01/29/22 Relations Coordinator Relationship Specialty Start Date End Date Trev Patino MD [address] [place] [address] PCP - General Family Medicine 12/12/21 [facility] [address] [place] [address] Pharmacist Pharmacy 10/13/19 13, Pharmacist [address]70 [place] [address] Pharmacy 12/06/19 Orlando, San Juan S [address] [place] [address] Specialty Compounding Scaler Cardiology 01/13/21 Del Ayala [address] [place] [address] [employer]ander [employer] Pencils Pulmonary Disease 11/11/21 Kalia Ambrocio RN [address] [place] [address] Customer Care Consultant [facility] Medicine 01/29/22 Relations Coordinator Relationship Specialty Start Date End Date Trev Patino MD [address] [place] [address] PCP - General Family Medicine 12/12/21 [facility] [address] [place] [address] Pharmacist Pharmacy 10/13/19 13, Pharmacist [address] [place] [address] Pharmacy 12/06/19 Orlando, San Juan S [address] [place] [address] Specialty Compounding Scaler Cardiology 01/13/21 Del Ayala [address] [place] [address] Sander [employer] Pencils Pulmonary Disease 11/11/21 Kalia Ambrocio RN [address] [place] [address] Customer Care Consultant [facility] 01/29/22 Relations Coordinator Relationship Specialty Start Date End Date Trev Patino MD [address] [place] [address] PCP - General Family Medicine 12/12/21 [facility] [address] [place] [address] Pharmacist Pharmacy 10/13/19 13, Pharmacist [address] [facility] [address] Pharmacy 12/06/19 Orlando, Johan S [address] [place] [address] Specialty Compounding Scaler Cardiology 01/13/21 Del Ayala [address] [place] [address] [employer]ander [employer] Pencils Pulmonary Disease 11/11/21 Kalia Ambrocio RN [address] [place], [place] 4450531 Customer Care Consultant Family Medicine 01/29/22 Relations Coordinator Relationship Specialty Start Date End Date Trev Patino MD [address] [place] [address] PCP - General Family Medicine 12/12/21 [facility] [address] [place] [address] Pharmacist Pharmacy 10/13/19 13, Pharmacist [address]17 [place] [address] Pharmacy 12/06/19 Balaji Perryril S [address] [place] [address] Specialty Compounding Scaler Cardiology 01/13/21 Del Ayala [address] [place] [address] [employer]ander [employer] Pencils Pulmonary Disease 11/11/21 Kalia Ambrocio RN [address] [place] [address] Customer Care Consultant Family Medicine 01/29/22 Relations Coordinator Relationship Specialty Start Date End Date Trev Patino MD [address] [place] [address] PCP - General Family Medicine 12/12/21 [facility] [address] [place] [address] Pharmacist Pharmacy 10/13/19 13, Pharmacist [address]34 [place] [address] Pharmacy 12/06/19 Orlando, San Juan S [address] [place] [address] Specialty Compounding Scaler Cardiology 01/13/21 Del Ayala [address] [place] [address] [employer]ander [employer] Pencils Pulmonary Disease 11/11/21 Kalia Ambrocio, RN [address] [place], [place] 8054531 Customer Care Consultant Family Medicine 01/29/22 Relations Coordinator Relationship Specialty Start Date End Date Trev Patino MD [address] [place] [address] PCP - General Family Medicine 12/12/21 [facility] [address] [place] [address] Pharmacist Pharmacy 10/13/19 13, Pharmacist [address]2063 [place] [address] Pharmacy 12/06/19 Orlando, San Juan S [address] [facility] [place] [address] Specialty Compounding Scaler Cardiology 01/13/21 Del Ayala [address] [place] [address] [employer]ander [employer] Pencils Pulmonary Disease 11/11/21 Kalia Ambrocio RN [address] [place], [place] 7733231 Customer Care Consultant Family Medicine 01/29/22 Relations Coordinator Relationship Specialty Start Date End Date Trev Patino MD [address] [place] [address] PCP - General Family Medicine 12/12/21 [facility] [address] [place] [address] Pharmacist Pharmacy 10/13/19 13, Pharmacist [address] [place] [address] Pharmacy 12/06/19 Orlando, San Juan S [address] [facility] [place] [address] Specialty Compounding Scaler Cardiology 01/13/21 Del Ayala [address] [place] [address] Sander [employer] Pencils Pulmonary Disease 11/11/21 Kalia Ambrocio RN [address] [place], [place] 4751131 Customer Care Consultant Family Medicine 01/29/22 Relations Coordinator Relationship Specialty Start Date End Date Trev Patino MD [address] [place] [address] PCP - General Family Medicine 12/12/21 Cholo Thorpe, [facility] [address] [place] [address] Pharmacist Pharmacy 10/13/19 13, Pharmacist [address]492 [place] [address] Pharmacy 12/06/19 Orlando, San Juan S [address] [place] [address] Specialty Compounding Scaler Cardiology 01/13/21 Del Ayala [address] [place] [address] [employer]ander [employer] Pencils Pulmonary Disease 11/11/21 Kalia Ambrocio RN [address] [place], [place] 6755031 Customer Care Consultant Family Medicine 01/29/22 Relations Coordinator Relationship Specialty Start Date End Date Trev Patino MD [address] [place] [address] PCP - General Family Medicine 12/12/21 [facility] [address] [place] [address] Pharmacist Pharmacy 10/13/19 13, Pharmacist [address]1945 [place] [address] Pharmacy 12/06/19 Orlando, San Juan S [address] [place] [address] Specialty Compounding Scaler Cardiology 01/13/21 Del Ayala [facility] [place] [address] [employer]ander [employer] Pencils Pulmonary Disease 11/11/21 Kalia Ambrocio RN [address] [place], [place] 3653331 Customer Care Consultant Family Medicine 01/29/22 Relations Coordinator Relationship Specialty Start Date End Date Trev Patino MD [address] [place] [address] PCP - General Family Medicine 12/12/21 [facility] [address] [place] [address] Pharmacist Pharmacy 10/13/19 13, Pharmacist 65000 [place] [address] Pharmacy 12/06/19 Orlando, Johan S [address] [place] [address] Specialty Compounding Scaler Cardiology 01/13/21 Del Ayala [address] [place] [address] Sander [employer] Pencils Pulmonary Disease 11/11/21 Kalia Ambrocio RN [address] [place] [address] Customer Care Consultant Family Medicine 01/29/22 Relations Coordinator Relationship Specialty Start Date End Date Trev Patino MD [address] [place] [address] PCP - General Family Medicine 12/12/21 [facility] [address] [place] [address] Pharmacist Pharmacy 10/13/19 13, Pharmacist [address]123 [place] [address] Pharmacy 12/06/19 Orlando, San Juan S [address] [place] [address] Specialty Compounding Scaler Cardiology 01/13/21 Del Ayala [address] [place] [address] Sander [employer] Pencils Pulmonary Disease 11/11/21 Kalia Ambrocio RN [address] [place] [address] Customer Care Consultant Family Medicine 01/29/22 Relations Coordinator Relationship Specialty Start Date End Date Trev Patino MD [address] [place] [address] PCP - General Family Medicine 12/12/21 Cholo Thorpe, [facility] [address] [place] [address] Pharmacist Pharmacy 10/13/19 13, Pharmacist [address]300 [place] [address] Pharmacy 12/06/19 Orlando, San Juan S [address] [facility] [facility] [place] [address] Specialty Compounding Scaler Cardiology 01/13/21 Del Ayala [address] [place] [address] Sander [employer] Pencils Pulmonary Disease 11/11/21 Kalia Ambrocio, DRAGAN [address] [place] [address] Customer Care Consultant [facility] 01/29/22 Relations Coordinator Relationship Specialty Start Date End Date Trev Patino MD [address] [place] [address] PCP - General Family Medicine 12/12/21 Cholo Thorpe, [facility] [address] [place] [address] Pharmacist Pharmacy 10/13/19 13, Pharmacist 75976 [place] [address] Pharmacy 12/06/19 Orlando, San Juan S [address] [place] [address] Specialty Compounding Scaler Cardiology 01/13/21 Del Ayala [address] [place] [address] Sander [employer] Pencils Pulmonary Disease 11/11/21 Kalia Ambrocio RN [address] [place] [address] Customer Care Consultant Family Medicine 01/29/22 Relations Coordinator Relationship Specialty Start Date End Date Trev Patino MD [address] [place] [address] PCP - General Family Medicine 12/12/21 Cholo Thorpe, [facility] [address] [place] [address] Pharmacist Pharmacy 10/13/19 13, Pharmacist [address]6561 [place] [address] Pharmacy 12/06/19 Orlando, Johan S [address] [facility] [place] [address] Specialty Compounding Scaler Cardiology 01/13/21 Del Ayala [address] [place] [address] [employer]ander [employer] Pencils Pulmonary Disease 11/11/21 Kalia Ambrocio, RN [address] [place] [address] Customer Care Consultant Family Medicine 01/29/22 Relations Coordinator Relationship Specialty Start Date End Date Trev Patino MD [address] [place] [address] PCP - General Family Medicine 12/12/21 [facility] [address] [place] [address] Pharmacist Pharmacy 10/13/19 13, Pharmacist 23058 [place] [address] Pharmacy 12/06/19 Johan Perry [address] [place] [address] Specialty Compounding Scaler Cardiology 01/13/21 Del Ayala [address] [place] [address] [employer]ander [employer] Pencils Pulmonary Disease 11/11/21 Kalia Ambrocio RN [address] [place] [address] Customer Care Consultant Family Medicine 01/29/22 Relations Coordinator Relationship Specialty Start Date End Date Trev Patino MD [address] [place] [address] PCP - General Family Medicine 12/12/21 [facility] [address] [place] [address] Pharmacist Pharmacy 10/13/19 13, Pharmacist [address]36 [place] [address] Pharmacy 12/06/19 Orlando, Johan S [address] [place] [address] Specialty Compounding Scaler Cardiology 01/13/21 Del Ayala [address] [place] [place] [address] [employer]ander [employer]encils Pulmonary Disease 11/11/21 Kalia Ambrocio RN [address] [place] [address] Customer Care Consultant Family Medicine 01/29/22 Relations Coordinator Relationship Specialty Start Date End Date Trev Patino MD [address] [place] [address] PCP - General Family Medicine 12/12/21 [facility] [address] [place] [address] Pharmacist Pharmacy 10/13/19 13, Pharmacist [address]23 [place] [address] Pharmacy 12/06/19 Orlando, San Juan S [address] [place] [address] Specialty Compounding Scaler Cardiology 01/13/21 Del Ayala [address] [place] [address] [employer]ander [employer]encils Pulmonary Disease 11/11/21 Kalia Ambrocio RN [address] [place] [address] Customer Care Consultant Family Medicine 01/29/22 Relations Coordinator Relationship Specialty Start Date End Date Trev Patino MD [address] [place] [address] PCP - General Family Medicine 12/12/21 Cholo Thorpe, [facility] [address] [place] [address] Pharmacist Pharmacy 10/13/19 13, Pharmacist 31491 [place] [address] Pharmacy 12/06/19 Orlando, San Juan S [address] [place] [address] Specialty Compounding Scaler Cardiology 01/13/21 Del Ayala [address] [place] [address] [employer]ander [employer] Pencils Pulmonary Disease 11/11/21 Kalia Ambrocio, RN [address] [place] [address] Customer Care Consultant [facility] 01/29/22 Relations Coordinator Relationship Specialty Start Date End Date Trev Patino MD [address] [place] [address] PCP - General Family Medicine 12/12/21 Cholo Thorpe, [facility] [address] [place] [address] Pharmacist Pharmacy 10/13/19 13, Pharmacist 69743 [place] [address] Pharmacy 12/06/19 [place], Johan S [address] [place] [address] Specialty Compounding Scaler Cardiology 01/13/21 Del Ayala [address] [place] [address] [employer]ander [employer]encils Pulmonary Disease 11/11/21 Kalia Ambrocio RN [address] [place] [address] Customer Care Consultant Family Medicine 01/29/22 Relations Coordinator Relationship Specialty Start Date End Date Trev Patino MD [address] [place] [address] PCP - General Family Medicine 12/12/21 [facility] [address] [place] [address] Pharmacist Pharmacy 10/13/19 13, Pharmacist [address]124 [place] [address] Pharmacy 12/06/19 Johan Perry [address] [place] [address] Specialty Compounding Scaler Cardiology 01/13/21 Del Ayala [address] [place] [address] [employer]ander [employer]encils Pulmonary Disease 11/11/21 Kalia Ambrocio RN [address] [place] [address] Customer Care Consultant Family Medicine 01/29/22 Relations Coordinator Relationship Specialty Start Date End Date Trev Patino MD [address] [place] [address] PCP - General Family Medicine 12/12/21 [facility] [address] [place] [address] Pharmacist Pharmacy 10/13/19 13, Pharmacist 99698 [place] [address] Pharmacy 12/06/19 Orlando, San Juan S [address] [place] [address] Specialty Compounding Scaler Cardiology 01/13/21 Del Ayala [address] [place] [address] [employer]encils Pulmonary Disease 11/11/21 Kalia Ambrocio RN [address] [place] [address] Customer Care Consultant Family Medicine 01/29/22 Relations Coordinator Relationship Specialty Start Date End Date Trev Patino MD [address] [place] [address] PCP - General Family Medicine 12/12/21 Cholo Thorpe [facility] [address] [place] [address] Pharmacist Pharmacy 10/13/19 13, Pharmacist [address]855 [place] [address] Pharmacy 12/06/19 Orlando, Johan S [address] [facility] [place] [address] Specialty Compounding Scaler Cardiology 01/13/21 Del Ayala [address] [place] [address] [employer]ander [employer]encils Pulmonary Disease 11/11/21 Kalia Ambrocio RN [address] [place] [phone] Customer Care Consultant Family Medicine 01/29/22 Relations Coordinator Relationship Specialty Start Date End Date Trev Patino MD [address] [place] [address] PCP - General Family Medicine 12/12/21 Cholo Thorpe, [facility] [address] [place] [address] Pharmacist Pharmacy 10/13/19 13, Pharmacist [address]97 [place] [address] Pharmacy 12/06/19 Orlando, San Juan S [address] [place] [address] Specialty Compounding Scaler Cardiology 01/13/21 Del Ayala [address] [place] [address] [employer]ander [employer]enc[employer] Pulmonary Disease 11/11/21 Kalia Ambrocio, RN [address] [place] [address] Customer Care Consultant Family Medicine 01/29/22 Relations Coordinator Relationship Specialty Start Date End Date Trev Patino MD [address] [place] [address] PCP - General Family Medicine 12/12/21 Cholo Thorpe, [facility] [address] [place] [address] Pharmacist Pharmacy 10/13/19 13, Pharmacist [address] [facility] [address] Pharmacy 12/06/19 Orlando, San Juan S [address] [place] [address] Specialty Compounding Scaler Cardiology 01/13/21 Del Ayala MD [address] [place] [address] [employer]ander [employer]enc[employer] Pulmonary Disease 11/11/21 Kalia Ambrocio RN [address] [place] [address] Customer Care Consultant Family Medicine 01/29/22 Relations Coordinator Relationship Specialty Start Date End Date Trev Patino MD [address] [place] [address] PCP - General Family Medicine 12/12/21 [facility] [address] [place] [address] Pharmacist Pharmacy 10/13/19 13, Pharmacist [address]16 [place] [address] Pharmacy 12/06/19 Johan Perry [address] [place] [address] Specialty Compounding Scaler Cardiology 01/13/21 Del Ayala MD [address] [place] [address] [employer]ander [employer] Pulmonary Disease 11/11/21 Kalia Ambrocio RN [address] [place] [address] Customer Care Consultant Family Medicine 01/29/22 Relations Coordinator Relationship Specialty Start Date End Date Trev Patino MD [address] [place] [address] PCP - General Family Medicine 12/12/21 [facility] [address] [place] [address] Pharmacist Pharmacy 10/13/19 13, Pharmacist [address]9734 [place] [address] Pharmacy 12/06/19 [place], Johan S [address] [place] [address] Specialty Compounding Scaler Cardiology 01/13/21 Del Ayala MD [address] [place] [address] [employer]ander [employer] Pulmonary Disease 11/11/21 Kalia Ambrocio, DRAGAN [address] [place] [address] Customer Care Consultant Family Medicine 01/29/22 Relations Coordinator Relationship Specialty Start Date End Date Trev Patino MD [address] [place] [address] PCP - General Family Medicine 12/12/21 Cholo Thorpe [facility] [address] [place] [address] Pharmacist Pharmacy 10/13/19 13, Pharmacist [address]246 [place] [address] Pharmacy 12/06/19 Orlando, San Juan S [address] [place] [address] Specialty Compounding Scaler Cardiology 01/13/21 Del Ayala MD [address] [place] [address] [employer] Pulmonary Disease 11/11/21 Kalia Ambrocio RN [address] [place] [address] Customer Care Consultant Family Medicine 01/29/22 Relations Coordinator Relationship Specialty Start Date End Date Trev Patino MD [address] [place] [address] PCP - General Family Medicine 12/12/21 [facility] [address] [place] [address] Pharmacist Pharmacy 10/13/19 13, Pharmacist [address]98 [place] [address] Pharmacy 12/06/19 Orlando, San Juan S [address] [place] [address] Specialty Compounding Scaler Cardiology 01/13/21 Del Ayala MD [address] [facility] [place] [address] Sander [employer] Pulmonary Disease 11/11/21 Kalia Ambrocio, RN [address] [place] [phone] Customer Care Consultant Family Medicine 01/29/22 Relations Coordinator Relationship Specialty Start Date End Date Trev Patino MD [address] [place] [address] PCP - General Family Medicine 12/12/21 [facility] [address] [place] [address] Pharmacist Pharmacy 10/13/19 13, Pharmacist [phone] [place] [address] Pharmacy 12/06/19 [place], [place] S [address] [place] [address] Specialty Compounding Scaler Cardiology 01/13/21 Del Ayala MD [address] [place] [address] [employer] Pulmonary Disease 11/11/21 Kalia Ambrocio RN [address] [place] [address] Customer Care Consultant Family Medicine 01/29/22 Relations Coordinator Relationship Specialty Start Date End Date Trev Patino MD [address] [place] [address] PCP - General Family Medicine 12/12/21 [facility] [address] [place] [address] Pharmacist Pharmacy 10/13/19 13, Pharmacist [address] [place] [address] Pharmacy 12/06/19 Johan Perry S [address] [place] [address] Specialty Compounding Scaler Cardiology 01/13/21 Del Ayala MD [address] [place] [address] [employer] Pulmonary Disease 11/11/21 Kalia Ambrocio RN [address] [place] [address] Customer Care Consultant Family Medicine 01/29/22 Relations Coordinator Relationship Specialty Start Date End Date Trev Patino MD [address] [place] [address] PCP - General Family Medicine 12/12/21 [facility] [address] [place] [address] Pharmacist Pharmacy 10/13/19 13, Pharmacist [address] [place] [address] Pharmacy 12/06/19 Johan Perry MD [address] [place] [address] Specialty Compounding Scaler Cardiology 01/13/21 Del Ayala MD [address] [place] [address] [employer] Pulmonary Disease 11/11/21 Kalia Ambrocio, DRAGAN [address] [place] [address] Customer Care Consultant Family Medicine 01/29/22 Relations Coordinator Relationship Specialty Start Date End Date Trev Patino MD [address] [place] [address] PCP - General Family Medicine 12/12/21 [facility] [address] [place] [address] Pharmacist Pharmacy 10/13/19 13, Pharmacist [address] [place] [address] Pharmacy 12/06/19 Johan Perry MD [address] [place] [address] Specialty Compounding Scaler Cardiology 01/13/21 Del Ayala MD [address] [place] [address] [employer] Pulmonary Disease 11/11/21 Kalia Ambrocio RN [address] [place] [address] Customer Care Consultant Family Medicine 01/29/22 Relations Coordinator Relationship Specialty Start Date End Date Trev Patino MD [address] [place] [address] PCP - General Family Medicine 12/12/21 [facility] [address] [place] [address] Pharmacist Pharmacy 10/13/19 13, Pharmacist [address] [place] [address] Pharmacy 12/06/19 Johan Perry MD [address] [place] [address] Specialty Compounding Scaler Cardiology 01/13/21 Del Ayala MD [address] [place] [address] [employer] Pulmonary Disease 11/11/21 Kalia Ambrocio RN [address] [place] [address] Customer Care Consultant Family Medicine 01/29/22 Relations Coordinator Relationship Specialty Start Date End Date Trev Patino MD [address] [place] [address] PCP - General Family Medicine 12/12/21 [facility] [address] [place] [address] Pharmacist Pharmacy 10/13/19 13, Pharmacist [address] [place] [address] Pharmacy 12/06/19 Johan Perry MD [address] [place] [address] Specialty Compounding Scaler Cardiology 01/13/21 Del Ayala MD [address] [place] [address] [employer] Pulmonary Disease 11/11/21 Kalia Ambrocio RN [address] [place], [place] [id number] Customer Care Consultant Family Medicine 01/29/22 Relations Coordinator Relationship Specialty Start Date End Date Trev Patino MD [address] [place] [address] PCP - General Family Medicine 12/12/21 Cholo Thorpe [facility] [address] [place] [address] Pharmacist Pharmacy 10/13/19 13, Pharmacist [address] [place] [address] Pharmacy 12/06/19 Johan Perry MD [address] [place] [address] Specialty Compounding Scaler Cardiology 01/13/21 Del Ayala MD [address] [facility] [place] [address] [employer] Pulmonary Disease 11/11/21 Kalia Ambrocio RN [address] [place] [address] Customer Care Consultant Family Medicine 01/29/22 Relations Coordinator Relationship Specialty Start Date End Date Trev Patino MD [address] [place] [address] PCP - General Family Medicine 12/12/21 [facility] [address] [place] [address] Pharmacist Pharmacy 10/13/19 13, Pharmacist [address] [place] [address] Pharmacy 12/06/19 Johan Perry MD [address] [place] [address] Specialty Compounding Scaler Cardiology 01/13/21 Del Ayala MD [address] [place] [address] [employer] Pulmonary Disease 11/11/21 Kalia Ambrocio RN [address] [place] [address] Customer Care Consultant Family Medicine 01/29/22 Relations Coordinator Relationship Specialty Start Date End Date Trev Patino MD [address] [place] [address] PCP - General Family Medicine 12/12/21 [facility] Pharmacist Pharmacy 10/13/19 13, Pharmacist [address] [place] [address] Pharmacy 12/06/19 Johan Perry MD [address] [place] [address] Specialty Compounding Scaler Cardiology 01/13/21 Del Ayala MD [address] [place] [address] [employer] Pulmonary Disease 11/11/21 Kalia Ambrocio RN [address] [place], [place] [address] Customer Care Consultant Family Medicine 01/29/22 Relations Coordinator Relationship Specialty Start Date End Date Trev Patino MD [address] [place] [address] PCP - General Family Medicine 12/12/21 [facility] Pharmacist Pharmacy 10/13/19 13, Pharmacist [address] [place] [address] Pharmacy 12/06/19 Johan Perry MD [address] [place] [address] Specialty Compounding Scaler Cardiology 01/13/21 Del Ayala MD [address] [place] [address] [employer] Pulmonary Disease 11/11/21 Kalia Ambrocio RN [address] [place] [address] Customer Care Consultant [facility] 01/29/22 Relations Coordinator Relationship Specialty Start Date End Date Trev Patino MD [address] [place] [address] PCP - General Family Medicine 12/12/21 [facility] Pharmacist Pharmacy 10/13/19 13, Pharmacist [address] [place] [address] Pharmacy 12/06/19 Johan Perry MD [address] [place] [address] Specialty Compounding Scaler Cardiology 01/13/21 Del Ayala MD [address] [place] [address] [employer] Pulmonary Disease 11/11/21 Kalia Ambrocio RN [address] [place] [address] Customer Care Consultant Family Medicine 01/29/22 Relations Coordinator Relationship Specialty Start Date End Date Trev Patino MD [address] [place] [address] PCP - General Family Medicine 12/12/21 [facility] Pharmacist Pharmacy 10/13/19 13, Pharmacist [address] [place] [address] Pharmacy 12/06/19 Johan Perry MD [address] [place] [address] Specialty Compounding Scaler Cardiology 01/13/21 Del Ayala MD [address] [place] [address] [employer] Pulmonary Disease 11/11/21 Kalia Ambrocio RN [address] [place] [address] Customer Care Consultant Family Medicine 01/29/22 Relations Coordinator Relationship Specialty Start Date End Date Trev Patino MD [address] [place] [address] PCP - General Family Medicine 12/12/21 [facility] Pharmacist Pharmacy 10/13/19 13, Pharmacist [address] [place] [address] Pharmacy 12/06/19 Johan Perry MD [address] [facility] [place] [address] Specialty Compounding Scaler Cardiology 01/13/21 Del Ayala MD [address] [place] [address] [employer] Pulmonary Disease 11/11/21 Kalia Ambrocio RN [address] [place] [address] Customer Care Consultant [facility] Medicine 01/29/22 Relations Coordinator Relationship Specialty Start Date End Date Trev Patino MD [address] [place], [place] [address] PCP - General Family Medicine 12/12/21 Cholo Thorpe [facility] Pharmacist Pharmacy 10/13/19 13, Pharmacist [address] [place] [address] Pharmacy 12/06/19 Johan Perry MD [address] [place] [address] Specialty Compounding Scaler Cardiology 01/13/21 Del Ayala MD [address] [place], [place] [address] [employer] Pulmonary Disease 11/11/21 Kalia Ambrocio RN [address] [place] [address] Customer Care Consultant Family Medicine 01/29/22 FOR RECORDS PERTAINING TO PATIENTS WHO ARE OR HAVE BEEN ENROLLED IN A CHEMICAL DEPENDENCY/SUBSTANCEABUSE PROGRAM, SOME INFORMATION MAY BE OMITTED. This clinical summary was aggregated from multiple sources. Caution should be exercised in using it in the provision of clinical care. This summary normalizes information from multiple sources, and as a consequence, information in this document may materially change the coding, format and clinical context of patient data. In addition, data may be omitted in some cases. CLINICAL DECISIONS SHOULD BE BASED ON THE PRIMARY CLINICAL RECORDS. [facility] [employer], [facility]. provides no warranty or guarantee of the accuracy or completeness of information in this document.
[2023-04-17 18:34] LABS: Differential Comment SCANNED
[2023-04-17 18:36] LABS: Bacteria 0 SEEN /hpf (None Seen); Mucous, Urine 0 SEEN /hpf (<or=2+); Red Blood Cells-Urine 0 SEEN /hpf (0-5); Squamous Epithelial Cells - UA 0 SEEN /hpf (0-5)
[2023-04-17 18:41] LABS: Lactic Acid 2.2 mmol/L (0.4-1.9)
[2023-04-17 18:43] LABS: Color, Urine Yellow (Yellow); Glucose, Dipstick 1000 mg/dl (Normal); Ketone-Dipstick Negative (Negative); Leukocyte Esterase-Dipstick 100 /ul (Negative); Nitrite-Dipstick Negative (Negative); Occult Blood-Urine 10 /ul (Negative); Protein-Dipstick 15 mg/dl (Negative); Urine Bilirubin Dipstick Negative (Negative); Urine Clarity Clear (Clear); Urine Urobilinogen Normal (Normal)
[2023-04-17 18:49] LABS: White Blood Cells 0-5 SEEN /hpf (0-5)
[2023-04-17] MEDS: Acetaminophen 325 MG Tablet 650 MG PO ×2 (19:26→23:19)
[2023-04-17] MEDS: 0.9% Normal Saline (1000mL) 1,000 ML 250 ML IV (19:32)
[2023-04-17 20:08] LABS: Reflex Troponin-HS? (from REC) Y
[2023-04-17] MEDS: Ciprofloxacin 400 MG/200 ML BAG 200 MG IV (20:08)
[2023-04-17 20:42] LABS: Allen Test Positive; Base Excess 7 mmol/L (-2 to +2); Bicarbonate 29.9 mmol/L (22-26); Blood Gas Specimen Type ART; Mode Not entered; O2 Delivery Device Cannula; PO2 79 mmHG (75-100); SITE R Radial; SO2 97 % (95-99); Total Carbon Dioxide 31 mmol/L; pCO2 36.1 mmHg (35-45); pH 7.53 (7.35-7.45)
[2023-04-17 20:46] LABS: Troponin-I HS 93 pg/mL (3.0-78.0)
--- NOTE | 2023-04-17 20:57 | PCM.HP.STD ---
[facility] - [facility] General Date of Admission: 04/17/23 Date of Service: 04/17/23 Chief Complaint: Chest pain, shortness of breath, fever and confusion. HPI Narrative Tim LONG, is a 77 M with a past medical history of essential hypertension, hyperlipidemia, obesity; with BMI of 39.7 this admission, obstructive sleep apnea; on CPAP, diabetes mellitus type 2; of unknown control, coronary artery disease; status post MA with stent (2014), history of paroxysmal atrial flutter; status post radiofrequency ablation procedure (2011), history of NSVT, history of ischemic cardiomyopathy; s/p PPM/AICD (2018), history of DVT; on apixaban, history of TIA, peripheral vascular disease; with chronic lower extremity wounds with previous angioplasty of peripheral vessel, history of GI bleed; with patient taken off Coumadin about 3 months ago for PUD, restless leg syndrome, history of COVID-19, glaucoma, depression, GERD, osteoarthritis and listed allergy to ceftriaxone; which causes rash who presents to [facility] ER complaining of chest pain, shortness of breath, fever and confusion. Mr. Long is not a fully reliable historian at this time so information was gathered from chart, medical staff and computer. According to the records his symptoms began approximately 2 PM earlier today with chest pressure and tightness that was substernal, nonradiating, severe at approximately 8 out of 10 and began abruptly while at rest watching television. He was noted to become diaphoretic and complained of shortness of breath with slight nausea but denied vomiting. He denies associated headache, neck pain, visual changes, auditory symptoms, abdominal pain, black stools, dark stools, blood in stools, dysuria, hematuria, urinary frequency, runny nose, postnasal drainage or sore throat but he admits to a mild nonproductive cough with audible wheezing from across the room. His daughter admitted he smoked heavily in the past but she denies him ever having been formally diagnosed with COPD. In the ER he was noted to have a fever of 100.1 ?F on admission that quickly alice to 103.2 ?F with accompanying leukocytosis of 13.3 and left shift with lactic acidosis of 2.2 mmol/L with an elevated troponin of 93 pg/mL consistent with suspected NSTEMI compounded by clinical evidence of AE COPD and metabolic alkalosis with pH of 7.53/pCO2 of 36.1/pO2 of 79/bicarbonate 29.9 on 40% FiO2 present on admission with sinus tachycardia 106 bpm present on admission consistent with suspected sepsis of unknown primary origin with clinical evidence of septic encephalopathy with a urinalysis that is unremarkable and chest x-ray negative for acute pathologic changes so he was empirically treated with IV ciprofloxacin and IV vancomycin with a viral respiratory panel pending at this time and the ER physician asked to perform CT scan of chest abdomen and pelvis to help identify potential source of infection and to contact infectious disease physician on-call for further guidance with recommendations to also start IV Merrem and IV acyclovir to enhance coverage of gram-negative's and VZV. He was then admitted to the ICU for ongoing treatment under the sepsis protocol for a stay that is expected to be greater than 48 hours. [facility] Medical History (Updated 04/18/23 @ 06:[address] 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 Gastric reflux Gastritis GI bleed HFrEF (heart failure with reduced ejection fraction) High cholesterol History of CHF (congestive heart failure) History of deep vein thrombosis (DVT) of lower extremity History of echocardiogram History of edema History of heart attack History of irregular heartbeat History of non-ST elevation myocardial infarction (NSTEMI) (11/05/16) History of renal disease History of steroid therapy History of stress test Hyperlipidemia Insulin dependent diabetes mellitus Ischemic cardiomyopathy Leg cramps Localized edema Melena Morbid obesity with BMI of 40.0-44.9, adult Nondisp fracture of fifth left metatarsal bone with routine healing Nonrheumatic tricuspid (valve) insufficiency Nonsustained ventricular tachycardia Normocytic anemia 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 Other specified peripheral vascular diseases Paroxysmal atrial flutter Peripheral vascular occlusive disease Restless legs Shortness of breath on exertion Syncope TIA (transient ischemic attack) Type 2 diabetes mellitus Ulcer of left lower extremity with fat layer exposed Ulcer of right lower extremity Ulcer of right lower extremity with fat layer exposed Ulcer of right lower extremity with fat layer exposed Uncontrolled type 2 diabetes mellitus Walker as ambulation aid Walking difficulty due to ankle and foot Wears dentures Wears glasses Xerosis cutis Home Medications latanoprost 0.005 % eye drops 1 drp EACH EYE TID glaucoma 11/17/18 [History Last Taken 02/09/23] ropinirole 0.5 mg tablet 1 mg PO QHS legs 12/10/21 [History Last Taken 02/08/23] ondansetron 4 mg disintegrating tablet 4 mg PO Q6H PRN Nausea 03/16/22 [History Last Taken Unknown] albuterol sulfate 2.5 mg/3 mL (0.083 %) solution for nebulization 2.5 mg (3 mL) inhalation Q4H.RT PRN WHEEZING 30 days #360 mL 04/14/22 [Rx Last Taken 02/09/23] albuterol sulfate 90 mcg/actuation aerosol inhaler 2 puff inhalation Q6H PRN shortness of breath or wheezing #8.5 grams 04/16/22 [Rx Last Taken 02/09/23] dapagliflozin propanediol 10 mg tablet (Farxiga) 10 mg PO DAILY diabetes 04/18/22 [History Last Taken 02/09/23] nitroglycerin 0.4 mg sublingual tablet 0.4 mg sublingual Q5M PRN Chest Pain #25 tabs 04/21/22 [Rx Last Taken Unknown] dulaglutide 3 mg/0.5 mL subcutaneous pen injector (Trulicity) 3 mg subcut QWEEK diabetes 05/20/22 [History Last Taken 02/08/23] carvedilol 6.25 mg tablet 6.25 mg PO BID This is a dose increase #180 tabs 08/07/22 [Rx Last Taken 01/30/23 03:30] isosorbide mononitrate 60 mg tablet,extended release 24 hr 60 mg PO DAILY #90 tabs 08/07/22 [Rx Last Taken 01/30/23 03:30] insulin lispro 100 unit/mL subcutaneous pen (Humalog KwikPen (U-100) Insulin) 24 unit subcut TID blood sugar 10/30/22 [History Last Taken 02/09/23] insulin glargine-yfgn 100 unit/mL (3 mL) subcutaneous pen 40 unit subcut BID blood sugar 11/04/22 [History Last Taken 02/09/23] potassium chloride 20 mEq tablet,extended release(part/cryst) (Klor-Con M) 20 meq PO DAILY #90 tabs 11/13/22 [Rx Last Taken 02/09/23] nortriptyline 25 mg capsule 25 mg PO DAILY 11/24/22 [History Last Taken 02/09/23] furosemide 80 mg tablet (Lasix) 80 mg PO DAILY 01/21/23 [History Last Taken 02/09/23] gabapentin 300 mg capsule 900 mg PO Q8H 02/09/23 [History Last Taken 02/09/23] pantoprazole 40 mg tablet,delayed release See Rx Instructions .Route .COMPLEX #30 tabs 03/16/23 [Rx Last Taken Unknown] rosuvastatin 40 mg tablet 40 mg PO QHS Cholesterol #90 tabs 03/24/23 [Rx Last Taken Unknown] Allergy/AdvReac Type Severity Reaction Status Date / Time ceftriaxone sodium Allergy Rash Verified 04/08/23 14:17 [From Rocephin] milk AdvReac Diarrhea Verified 04/08/23 14:17 morphine AdvReac hallucinati Verified 04/08/23 14:17 ons Family History Father , Age 78 Prostate cancer Mother , Age 80 CVA (cerebral vascular accident) Sister Congestive heart failure Diabetes Hypertension Hyperlipidemia Atrial fibrillation CAD (coronary artery disease) Cardiac defibrillator in situ Sister Breast cancer Sister Breast cancer Brother CAD (coronary artery disease) Myocardial infarction Diabetes Brother Diabetes Brother , Age 74 COPD (chronic obstructive pulmonary disease) Sister Alive and well Surgical History H/O colonoscopy with polypectomy (11/2017) History of angioplasty of peripheral vessel History of cardiac catheterization History of colonoscopy History of coronary artery stent placement (12/15/14) History of detached retina repair History of electrophysiologic study (11/23/02) History of esophagogastroduodenoscopy (EGD) History of implantable cardiac defibrillator (ICD) (11/19/17) History of implantable cardiac defibrillator (ICD) History of left heart catheterization (12/06/18) History of radiofrequency ablation procedure for cardiac arrhythmia (07/01/11) ICD (implantable cardioverter-defibrillator) in place Social History household members: spouse housing: house current occupational status: retired pets and animals: Yes (2 dogs, 2 cats) Smoking Status: Former smoker pack-years: 20 how long ago did patient quit smokin years ago alcohol intake: never caffeine: Yes Type: coffee Number of servings: 1 ROS ROS Narrative Patient is confused so a full review of systems could not be completed at this time. Review of Systems ROS Unobtainable: due to encephalopathy Vital Signs Vital Signs Vital Signs: 04/17/23 17:53 04/17/23 18:02 04/17/23 18:22 Temperature 100.1 F H Temperature Source Oral Pulse Rate 106 H 105 H Respiratory Rate 30 H Blood Pressure 137/60 H 117/62 Blood Pressure Mean 85 Pulse Ox 93 98 Oxygen Delivery Method Room Air Nasal Cannula Oxygen Flow Rate (L/min) 2 04/17/23 18:31 04/17/23 19:00 04/17/23 20:00 Temperature 100.7 F H 103.2 F H 101.0 F H Temperature Source Oral Oral Oral Pulse Rate 107 H 104 H 102 H Respiratory Rate 20 H 20 H 21 H Blood Pressure 111/60 102/71 126/87 H Blood Pressure Mean 77 81 100 Pulse Ox 96 96 96 Oxygen Delivery Method Room Air Room Air Room Air Oxygen Flow Rate (L/min) 04/17/23 20:43 Temperature Temperature Source Pulse Rate 100 Respiratory Rate 27 H Blood Pressure 99/57 L Blood Pressure Mean 71 Pulse Ox 100 Oxygen Delivery Method Nasal Cannula Oxygen Flow Rate (L/min) 3 Weight Weight: 261 lb 3.964 oz Body Mass Index (BMI) 39.6 Physical Exam Const alert Constitutional Narrative: Patient appears obese with acute illness on top of chronic illness. General Appearance: cooperative Orientation / Consciousness: confused HEENT normocephalic, head/scalp atraumatic and hearing grossly normal bilaterally HEENT Narrative: Mucous membranes dry. Eyes PERRL, EOMs intact bilaterally and conjunctivae normal Neck no lymphadenopathy, supple, no JVD and no carotid bruits Resp Resp Narrative: Diminished breath sounds throughout with scattered wheezes. Auscultation: wheezes Cardio regular rate and regular rhythm GI normal to inspection, nondistended, normoactive bowel sounds, soft to palpation, non-tender and non-distended Extremity Extremity Narrative: Chronic venous stasis changes bilaterally with not active signs of acute infection. Skin Skin Narrative: Chronic venous stasis changes bilaterally with not active signs of acute infection. Neuro CN's II-XII intact bilaterally, moves all extremities and no focal motor deficits Sensorium / Orientation: awake, alert, oriented to person and oriented to place Speech: speech normal Motor Exam: strength 5/5 throughout Psych affect normal Results Medical Records Data Attestation: I reviewed the patient's medical records Lab / Micro Data Attestation: I reviewed the patient's lab results. 04/18/23 04:35 04/18/23 04:35 Labs: Laboratory Results - last 24 hr 04/17/23 18:00: WBC 13.3 H, RBC 5.61, Hgb 10.5 L, Hct 38.1 L, MCV 67.9 L, MCH 18.7 L, MCHC 27.6 L, RDW Std Deviation 43.6, RDW Coeff of Galo 19.3 H, Plt Count 181, MPV 9.3, Immature Gran % (Auto) 0.400, Neut % (Auto) 87.7 H, Lymph % (Auto) 4.3 L, [place] % (Auto) 6.0, Eos % (Auto) 1.0, Baso % (Auto) 0.6, Absolute Neuts (auto) 11.6 H, Absolute Lymphs (auto) 0.57 L, Nucleated RBC % 0, Differential Comment SCANNED, Sodium 137, Potassium 3.0 L, Chloride 97 L, Carbon Dioxide 33.0 H, Anion Gap 7, BUN 38 H, Creatinine 1.51 H, Estim Creat Clear Calc 51.25, Est GFR (MDRD) Af Amer 58 L, Est GFR (MDRD) Non-Af 48 L, BUN/Creatinine Ratio 25.2 H, Glucose 180 H, Lactic Acid 2.2 H*, Calcium 9.2, Troponin I High Sens 92 H 04/17/23 18:32: Urine Color Yellow, Urine Clarity Clear, Urine pH 5.0, Ur Specific Perryman 1.010, Urine Protein 15 H, Urine Glucose (UA) 1000 H, Urine Ketones Negative, Urine Occult Blood 10 H, Urine Nitrite Negative, Urine Bilirubin Negative, Urine Urobilinogen Normal, Ur Leukocyte Esterase 100 H, Urine RBC 0 SEEN, Urine WBC 0-5 SEEN, Ur Squamous Epith Cells 0 SEEN, Urine Bacteria 0 SEEN, Urine Mucus 0 SEEN 04/17/23 20:01: Troponin I High Sens 93 H Micro: Microbiology 04/17/23 18:04 Mucosa - Nose SARS-CoV-2, Influenza & RSV (PCR) - Final ABG Data ABG results: ABG 04/17/23 20:39 Specimen Type ART Sample Site R Radial pH 7.53 H Bicarbonate Actual 29.9 H Total CO2 31 Base Excess 7 H O2 Saturation 97 O2 % 4.0 ABG pCO2 36.1 ABG pO2 79 Elijah Test Positive O2 Delivery Device Cannula Vent Mode Not entered Imagaing Radiology Impression Chest X-Ray 04/17/23 18:07 IMPRESSION: No radiographic evidence of acute cardiopulmonary disease. Electronically Signed: Diaz Keating DO at 18:18 EST Reading Location ID and State: [address] [place] [address] Tel [phone], Service support , [facility] Imaging Services [address] [place] [address] CT Chest, Abd, Pelvis WO Cont MR#: [id number] Acct: [id number] Name: Tim LONG Rep #: [id number] : 1945 M 77 From: Diaz Keating DO PCP: Dr. Tomás Patino MD Status: ADM IN Study: CT Chest, Abd, Pelvis WO Cont Date of Exam: 04/17/23 Exam# [id number] Ordering Dr: Mark Anthony Oconnor MD STUDY: CT CHEST, ABDOMEN T PELVIS WITHOUT CONTRAST REASON FOR EXAM: Male, 77 years old. Fever, altered mental status, leukocytosis unknown RADIATION DOSAGE (If Supplied By Facility): CTDIvol = ( 26.27 ) mGy, DLP = ( 2585.42 ) mGycm TECHNIQUE: Transaxial imaging was performed without the administration of intravenous contrast material. Individualized dose optimization techniques were used for this CT. COMPARISON: FINDINGS: CHEST The lungs are normal. There is no demonstrated pleural abnormality. Normal heart and pericardium. Coronary arterial calcifications are present. Normal mediastinum. Normal hilar regions. Normal unenhanced pulmonary arteries. Normal aorta arch and descending thoracic aorta. Degenerative vertebral changes. ABDOMEN Normal liver. Normal gallbladder and extrahepatic biliary system. Enlarged spleen. Normal pancreas. 1.5 cm gastrohepatic node is noted. Normal bilateral adrenal glands. Normal right kidney. Extrarenal pelvis of the left kidney. Normal visualized stomach. Normal small intestine. Mild diverticulosis of the colon. The appendix is visualized and appears normal. Calcified abdominal aorta. Normal inferior vena cava. Normal retroperitoneum. Small fatty umbilical hernia. Degenerative vertebral changes. PELVIS Normal urinary bladder. There is no pelvic fluid. There is no pelvic lymphadenopathy or mass lesion. Normal visualized pelvic arteries. CT/CT Chest, Abd, Pelvis WO Cont IMPRESSION: Mild colonic diverticulosis. Slightly prominent gastrohepatic node. Fatty umbilical hernia. Electronically Signed: Diaz Keating DO at 23:42 EST Reading Location ID and State: [facility] / [place] Tel [phone], Service support , CC: Dr. Tomás Patino MD; Dr. Mark Anthony Oconnor MD ~ Tattoo Designer: Signed Assessment & Plan Assessment/Plan (1) Sepsis: QUALIFIERS: Sepsis type: sepsis due to unspecified organism Sepsis acute organ dysfunction status: with acute organ dysfunction Severe sepsis acute organ dysfunction type: encephalopathy Severe sepsis shock status: without septic shock Qualified Code(s): A41.9 - Sepsis, unspecified organism; R65.20 - Severe sepsis without septic shock; G93.41 - Metabolic encephalopathy (2) Septic encephalopathy: (3) COPD exacerbation: (4) Acute hypoxemic respiratory failure: (5) Acidosis, lactic: (6) Fever in adult: (7) Elevated troponin: PLAN: Plan 1. Sepsis evidenced by fever of 100.1 ?F on admission that quickly alice to 103.2 ?F with accompanying leukocytosis of 13.3 and left shift with lactic acidosis of 2.2 mmol/L and sinus tachycardia of 106 bpm present on admission with unknown primary source of infection at this time - Admit to ICU for treatment under the sepsis protocol. Proceed with CT scans of the chest abdomen pelvis to evaluate for evidence of occult infection. Give Tylenol as needed fever or pain. Finally, we will consult the publishing director and ID to see this patient on-rounds in the AM for further recommendations with help appreciated in advance. 2. Septic encephalopathy arising from #1 - Continue supportive care and monitor for improvement. 3. Metabolic alkalosis with pH of 7.53/pCO2 of 36.1/pO2 of 79/bicarbonate 29.9 on 40% FiO2 present on admission complicating #1 & #2 - Continue supportive care and recheck ABG after initial round of treatment to follow trend. 4. Elevated troponin of 93 pg/mL consistent with suspected non-STEMI from #1 - #3 with chest pain that resolved after 2 NTG this admission in the setting of known CAD; status post MA with stent (2014) and known ischemic cardiomyopathy; s/p PPM/AICD - Serialize troponin. Give IV Heparin with patient already on ECASA and Plavix. Continue prn SL NTG. Check echocardiogram to evaluate LVEF and to assess for potential vegetations. Finally, we will consult cardiology to see this patient on-rounds in the AM for further recommendations with help appreciated in advance. 5. AE COPD; with acute hypoxic respiratory failure requiring BiPAP adding to the pathology of #1 - #4 - Start Solumedrol IV plus scheduled and prn nebulizers. Patient already on antibiotics for #1. 6. Hypokalemia of 3 mmol/L present on admission - Give supplemental KCl and then recheck BMP in the a.m. to ensure improvement. 7. Essential hypertension - Hold scheduled antihypertensives in light of #1. 8. Hyperlipidemia - Resume statin and check lipid profile this admission. 9. Obesity; with BMI of 39.7 this admission plus obstructive sleep apnea - Weight loss will be recommended. Continue BiPAP. 10. Diabetes mellitus type 2; of unknown control - NPO for now. FSBS q. AC/HS plus lowest intesity SSI. 11. History of paroxysmal atrial flutter; status post radiofrequency ablation procedure (2011) - Noted. 12. History of NSVT - Noted. 13. History of DVT; previously on anticoagulation until recent EGD when it was stopped - Noted. 14. History of TIA- Noted. 15. Peripheral vascular disease; with chronic lower extremity wounds and chronic venous stasis with previous angioplasty of peripheral vessel - Noted with no signs of acute infection at this time. 16. Restless leg syndrome - Continue Requip as previous. 17. History of COVID-19 - Noted. 18. Glaucoma - Resume eye drops. 19. Depression - Continue home regimen. 20. GERD - PPI to be continued. 21. Osteoarthritis - Stable. Give Tylenol prn. 22. DVT prophylaxis - Patient is already on IV Heparin for #4. Total time: Approximately 95 minutes. Update: Patient was rechecked approximately four hours after admission with his lactic acidosis of 2.2 mmol/L present on admission having now risen to 2.3 mmol/L with his blood cultures positive for GPC. His vital signs are stable and his chest pain resolved after two doses of SL NTG. He denies other new complaints. INSTRUMENT SETTER was updated with plan. Sepsis Attestation Sepsis Alert: Yes Sepsis Attestation: Agree w/Sepsis Date exam was performed: 04/17/23 Time exam was performed: 23:00 Possible Source of Sepsis: Unknown Sepsis Organ Dysfunction Criteria Present: SBP < 90 mmHg or MAP < 65 mmHg, Acute Respiratory Failure (New need for BiPAP/CPAP or MV), Lactic Acid > 2 mmol/L and New/Unexplained change in mental status Fluid Resuscitation Fluid resuscitation indicated?: Yes Fluid Resuscitation ordered: 30 ml/kg fluid bolus ordered Amount of fluid ordered: 3 Sepsis Note Date exam was performed: 04/18/23 Time exam was performed: 03:00 Sepsis Attestation: Sepsis re-evaluation was performed Response to fluids: Fluid responsive hypotension Charges/Coding Visit Charges Inpatient E&M: 64535 Init Hosp L3
[2023-04-17] MEDS: Vancomycin HCl 2,000 MG in 0.9% Normal Saline (500mL Bag) 500 ML 250 MG IV (21:27)
[2023-04-17] MEDS: Meropenem 1 GM in 0.9% Normal Saline (100mL MB+) 100 ML IV (21:34)
--- OUTSIDE RECORDS SUMMARY | 2023-04-17 21:47 | XMS RPT_ITS | CCD ---
Author Name Unknown Address [address] [place] [address] Organization [facility] Care Team Providers Care Field Tech Name Role Phone MARK Khanna, Melany Cordova Unavailable ESTAFANOUS, KI Unavailable Unavailable [facility], Keti Unavailable 13, Pharmacist Unavailable Radha RN, May E Unavailable Unavail able [place], Johan S Unavailable [employer]az GRAILS WEB APPLICATION DEVELOPER.RODRIGUEZ, Ramiro KENDALL Primary Care Provider Radha ORTIZ, May E [facility] 13, Pharmacist Unavailable Radha ORTIZ, May E Unavailable [place], Johan S Unavailable Blaz GRAILS WEB APPLICATION DEVELOPER.FAIZA FRIAS Daniel Primary Care Provider Del Ayala Unavailable Trev Patino MD Primary Care Provider [facility], Keti Unavailable Radha ORTIZ, May E Unavailable [place], Manning S Unavailable Del Ayala Unavailable Trev Patino MD Primary Care Provider BECKY MCCARTHY Referring Unavailable TREV PATINO Primary Care Unavailable Cristóbal RN, Kalia Unavailable Radha ORTIZ, May E Unavailable [phone] [facility], Keti Unavailable 13, Pharmacist Unavailable [place], Johan S Unavailable Del Ayala Unavailable Trev Patino MD Primary Care Provider Cristóbal RN, Kalia Unavailable Cristóbal RN, Kalia Unavailable [place], Johan S Unavailable Del Ayala Unavailable Del Ayala MD Unavailable [place], Johan S Unavailable Del Ayala MD Unavailable Cristóbal ORTIZ, Kalia Unavailable [place] SIMMONS, Manning S Unavailable [facility], Keti Unavailable TREV PATINO Primary Care Unavailable SHEREEN HOLT Attending Unavailable SUKUMAR TREV Mellissa Primary Care Unavailable SHEREEN HOLT Attending Unavailable SUKUMAR TREV Mellissa Primary Care Unavailable SHEREEN HOLT Referring Unavailable ELDERBROVERONICA, TREV Mellissa Primary Care Unavailable ELDERBROTREV MARTIN Attending Unavailable ELDERBROVERONICA, TREV Malloy Primary Care Unavailable ELDERBROTREV MARTIN Referring Unavailable ELDERBROCK, TREV Malloy Primary [...] Attending Unavailable TREV PATINO Primary Care Unavailable TRVE PATINO Referring Unavailable TREV PATINO Primary Care Unavailable YAYA IBARRA Attending Unavailable TREV PATINO Primary Care Unavailable TREV PATINO Primary Care Unavailable LARON MACARIO Referring Unavailable TREV PATINO Primary Care Unavailable SHEREEN HOLT Referring Unavailable Allergies Allergy Classification Reported Allergen(s) Allergy Type Date of Onset Reaction(s) Facility (2 sources) ceftriaxone Drug Allergy 7 rash [facility] Work Phone: [phone] (3 sources) cow milk; Translations: [MILK] food allergy 7 diarrhea (lactose intolerant) [facility] Work Phone: [phone] (20 sources) morphine; Translations: [MORPHINE] Drug Allergy 5 Hallucinations [facility] Work Phone: (20 sources) cefTRIAXone; Translations: [CEFTRIAXONE SODIUM] Drug Allergy 5 Other: See Comments [facility] (20 sources) cow milk allergenic extract Drug Allergy 3 GI Upset [facility] Medications Current Medications Medication Drug [...] Drug Class(es) Dates Sig (Normalized) Sig (Original) [id number] 200 actuat albuterol 0.09 mg/actuat metered dose [...] Other aftercare (20 sources) Anticoagulant effect; Translations: [senior care (current) use of anticoagulants] Onset: 2 Episodic [...] (4 sources) Long-term drug therapy; Translations: [Other senior care (current) drug therapy] Onset: 1 07-16-2010 Unclassified [...] 01-30-2016 01-30-2016 Episodic Other aftercare (2 sources) senior care (current) use of insulin; Translations: [Type 2 [...] 118.39 kg Trev Patino MD Work Phone: [facility] 02-17-2023 09:35-0500 Diastolic blood pressure 84 mm[Hg] Trev Patino MD Work Phone: [facility] 02-17-2023 09:35-0500 Heart rate 98 /min Trev Patino MD Work Phone: [facility] 02-17-2023 09:35-0500 Respiratory rate 20 /min Trev Patino MD Work Phone: [facility] 02-17-2023 09:35-0500 SaO2% (BldA) [Mass fraction] 99 % Trev Patino MD Work Phone: [facility] 02-17-2023 09:35-0500 Systolic blood pressure 130 mm[Hg] Trev Patino MD Work Phone: [facility] 11-17-2022 14:08-0400 Body weight 121.56 kg Trev Patino MD Work Phone: [facility] 11-17-2022 14:08-0400 Diastolic blood pressure 68 mm[Hg] Trev Patino MD Work Phone: [facility] 11-17-2022 14:08-0400 Heart rate 92 /min Trev Patino MD Work Phone: [facility] 11-17-2022 14:08-0400 Respiratory rate 20 /min Trev Patino MD Work Phone: [facility] 11-17-2022 14:08-0400 Systolic blood pressure 110 mm[Hg] Trev Patino MD Work Phone: [facility] 10-14-2022 08:46-0400 Body height 172.7 cm Cristina Hung PA-C Work Phone: [facility] 10-14-2022 08:46-0400 Body temperature 97.11 [degF] Cristina [place] PA-C Work Phone: [facility] 10-14-2022 08:46-0400 Body weight 120.93 kg Cristina [place] PA-C Work Phone: [facility] 10-14-2022 08:46-0400 Diastolic blood pressure 72 mm[Hg] Cristina Hung PA-C Work Phone: [facility] 10-14-2022 08:46-0400 Heart rate 95 /min Cristina [place] PA-C Work Phone: [facility] 10-14-2022 08:46-0400 SaO2% (BldA) [Mass fraction] 100 % Cristina [place] PA-C Work Phone: [facility] 10-14-2022 08:46-0400 Systolic blood pressure 118 mm[Hg] Cristina [place] PA-C Work Phone: [facility] 09-22-2022 10:49-0400 Body weight 121.11 kg Shereenomer Kaiserhof GRAILS WEB APPLICATION DEVELOPER.DAIRY CHEMIST Work Phone: [facility] 09-22-2022 10:49-0400 Diastolic blood pressure 82 mm[Hg] Shereen Tannhof GRAILS WEB APPLICATION DEVELOPER.DAIRY CHEMIST Work Phone: [facility] 09-22-2022 10:49-0400 Heart rate 84 /min Shereen Tannhof GRAILS WEB APPLICATION DEVELOPER.DAIRY CHEMIST Work Phone: [facility] 09-22-2022 10:49-0400 Respiratory rate 18 /min Shereen Tannhof GRAILS WEB APPLICATION DEVELOPER.DAIRY CHEMIST Work Phone: [facility] 09-22-2022 10:49-0400 Systolic blood pressure 129 mm[Hg] Shereen Tannhof GRAILS WEB APPLICATION DEVELOPER.DAIRY CHEMIST Work Phone: [facility] 06-20-2022 14:59-0400 Body weight 123.33 kg Trev Patino MD Work Phone: [facility] 06-20-2022 14:59-0400 Diastolic blood pressure 80 mm[Hg] Trev Patino MD Work Phone: [facility] 06-20-2022 14:59-0400 Heart rate 80 /min Trev Patino MD Work Phone: [facility] 06-20-2022 14:59-0400 Respiratory rate 18 /min Trev Patino MD Work Phone: [facility] 06-20-2022 14:59-0400 Systolic blood pressure 128 mm[Hg] Trev Patino MD Work Phone: [facility] 05-12-2022 14:40-0500 Body weight 121.11 kg Shereen Tannhof GRAILS WEB APPLICATION DEVELOPER.DAIRY CHEMIST Work Phone: [facility] 05-12-2022 14:40-0500 Diastolic blood pressure 80 mm[Hg] Shereen Tannhof GRAILS WEB APPLICATION DEVELOPER.DAIRY CHEMIST Work Phone: [facility] 05-12-2022 14:40-0500 Heart rate 85 /min Shereen Tannhof GRAILS WEB APPLICATION DEVELOPER.DAIRY CHEMIST Work Phone: [facility] 05-12-2022 14:40-0500 Respiratory rate 20 /min Shereen Tannhof GRAILS WEB APPLICATION DEVELOPER.DAIRY CHEMIST Work Phone: [facility] 05-12-2022 14:40-0500 SaO2% (BldA) [Mass fraction] 98 % Shereen Tannhof GRAILS WEB APPLICATION DEVELOPER.DAIRY CHEMIST Work Phone: [facility] 05-12-2022 14:40-0500 Systolic blood pressure 134 mm[Hg] Shereen Tannhof GRAILS WEB APPLICATION DEVELOPER.DAIRY CHEMIST Work Phone: [facility] 05-05-2022 14:10-0500 Body weight 123.83 kg Shereen Tannhof GRAILS WEB APPLICATION DEVELOPER.DAIRY CHEMIST Work Phone: [facility] 05-05-2022 14:10-0500 Diastolic blood pressure 80 mm[Hg] Shereen Tannhof GRAILS WEB APPLICATION DEVELOPER.DAIRY CHEMIST Work Phone: [facility] 05-05-2022 14:10-0500 Heart rate 90 /min Shereen Tannhof GRAILS WEB APPLICATION DEVELOPER.DAIRY CHEMIST Work Phone: [facility] 05-05-2022 14:10-0500 Respiratory rate 22 /min Shereen Tannhof GRAILS WEB APPLICATION DEVELOPER.DAIRY CHEMIST Work Phone: [facility] 05-05-2022 14:10-0500 SaO2% (BldA) [Mass fraction] 97 % Shereen Kaiserhof GRAILS WEB APPLICATION DEVELOPER.DAIRY CHEMIST Work Phone: [facility] 05-05-2022 14:10-0500 Systolic blood pressure 130 mm[Hg] Shereen Kaiserhof GRAILS WEB APPLICATION DEVELOPER.DAIRY CHEMIST Work Phone: [facility] 04-22-2022 14:26-0500 Body weight 122.47 kg Trev Patino MD Work Phone: [facility] 04-22-2022 14:26-0500 Diastolic blood pressure 72 mm[Hg] Trev Patino MD Work Phone: [facility] 04-22-2022 14:26-0500 Heart rate 72 /min Trev Patino MD Work Phone: [facility] 04-22-2022 14:26-0500 Respiratory rate 18 /min Trev Patino MD Work Phone: [facility] 04-22-2022 14:26-0500 Systolic blood pressure 120 mm[Hg] Trev Patino MD Work Phone: [facility] 03-16-2022 14:06-0500 Body temperature 97.11 [degF] Becky Mccarthy GRAILS WEB APPLICATION DEVELOPER.DAIRY CHEMIST Work Phone: [facility] 03-16-2022 14:06-0500 Body weight 132.9 kg Becky Mccarthy GRAILS WEB APPLICATION DEVELOPER.DAIRY CHEMIST Work Phone: [facility] 03-16-2022 14:06-0500 Diastolic blood pressure 56 mm[Hg] Becky Mccarthy GRAILS WEB APPLICATION DEVELOPER.DAIRY CHEMIST Work Phone: [facility] 03-16-2022 14:06-0500 Heart rate 71 /min Becky Mccarthy GRAILS WEB APPLICATION DEVELOPER.DAIRY CHEMIST Work Phone: [facility] 03-16-2022 14:06-0500 Respiratory rate 22 /min Becky Mccarthy GRAILS WEB APPLICATION DEVELOPER.DAIRY CHEMIST Work Phone: [facility] 03-16-2022 14:06-0500 SaO2% (BldA) [Mass fraction] 97 % Becky Mccarthy GRAILS WEB APPLICATION DEVELOPER.DAIRY CHEMIST Work Phone: [facility] 03-16-2022 14:06-0500 Systolic blood pressure 92 mm[Hg] Becky Mccarthy GRAILS WEB APPLICATION DEVELOPER.DAIRY CHEMIST Work Phone: [facility] 03-08-2022 10:05-0500 Body weight 129.59 kg Trev Patino MD Work Phone: [facility] 03-08-2022 10:05-0500 Diastolic blood pressure 90 mm[Hg] Trev Patino MD Work Phone: [facility] 03-08-2022 10:05-0500 Heart rate 77 /min Trev Patino MD Work Phone: [facility] 03-08-2022 10:05-0500 Respiratory rate 20 /min Trev Patino MD Work Phone: [facility] 03-08-2022 10:05-0500 SaO2% (BldA) [Mass fraction] 97 % Trev Patino MD Work Phone: [facility] 03-08-2022 10:05-0500 Systolic blood pressure 140 mm[Hg] Trev Patino MD Work Phone: [facility] 01-29-2022 13:39-0400 Body height 172.7 cm Trev Patino MD Work Phone: [facility] 01-29-2022 13:39-0400 Body weight 125.42 kg Trev Patino MD Work Phone: [facility] 01-29-2022 13:39-0400 Diastolic blood pressure 80 mm[Hg] Trev Patino MD Work Phone: [facility] 01-29-2022 13:39-0400 Heart rate 78 /min Trev Patino MD Work Phone: [facility] 01-29-2022 13:39-0400 Respiratory rate 16 /min Trev Patino MD Work Phone: [facility] 01-29-2022 13:39-0400 SaO2% (BldA) [Mass fraction] 96 % Trev Patino MD Work Phone: [facility] 01-29-2022 13:39-0400 Systolic blood pressure 120 mm[Hg] Trev Patino MD Work Phone: [facility] 01-24-2022 16:05-0400 Body temperature 98.1 [degF] Covid 3 [facility] 01-24-2022 16:05-0400 Diastolic blood pressure 56 mm[Hg] Covid 3 [facility] 01-24-2022 16:05-0400 Heart rate 73 /min Covid 3 [facility] 01-24-2022 16:05-0400 Respiratory rate 20 /min [address] 01-24-2022 16:05-0400 SaO2% (BldA) [Mass fraction] 95 % [address] 01-24-2022 16:05-0400 Systolic blood pressure 109 mm[Hg] [address] 01-21-2022 13:43-0400 Body temperature 98.71 [degF] Becky Mccarthy GRAILS WEB APPLICATION DEVELOPER.DAIRY CHEMIST Work Phone: [facility] 01-21-2022 13:43-0400 Body weight 127.01 kg Becky Mccarthy GRAILS WEB APPLICATION DEVELOPER.DAIRY CHEMIST Work Phone: [facility] 01-21-2022 13:43-0400 Diastolic blood pressure 72 mm[Hg] Becky Mccarthy GRAILS WEB APPLICATION DEVELOPER.DAIRY CHEMIST Work Phone: [facility] 01-21-2022 13:43-0400 Heart rate 106 /min Becky Mccarthy GRAILS WEB APPLICATION DEVELOPER.DAIRY CHEMIST Work Phone: [facility] 01-21-2022 13:43-0400 Respiratory rate 22 /min Becky Mccarthy GRAILS WEB APPLICATION DEVELOPER.DAIRY CHEMIST Work Phone: [facility] 01-21-2022 13:43-0400 SaO2% (BldA) [Mass fraction] 96 % Becky Mccarthy GRAILS WEB APPLICATION DEVELOPER.DAIRY CHEMIST Work Phone: [facility] 01-21-2022 13:43-0400 Systolic blood pressure 142 mm[Hg] Becky Mccarthy GRAILS WEB APPLICATION DEVELOPER.DAIRY CHEMIST Work Phone: [facility] 12-12-2021 13:28-0400 Body weight 126.55 kg Shereen Kaiserhof GRAILS WEB APPLICATION DEVELOPER.DAIRY CHEMIST Work Phone: [facility] 12-12-2021 13:28-0400 Diastolic blood pressure 76 mm[Hg] Shereen Tannhof GRAILS WEB APPLICATION DEVELOPER.DAIRY CHEMIST Work Phone: [facility] 12-12-2021 13:28-0400 Heart rate 71 /min Shereen Tannhof GRAILS WEB APPLICATION DEVELOPER.DAIRY CHEMIST Work Phone: [facility] 12-12-2021 13:28-0400 Respiratory rate 20 /min Shereen Tannhof GRAILS WEB APPLICATION DEVELOPER.DAIRY CHEMIST Work Phone: [facility] 12-12-2021 13:28-0400 SaO2% (BldA) [Mass fraction] 95 % Shereen Tannhof GRAILS WEB APPLICATION DEVELOPER.DAIRY CHEMIST Work Phone: [facility] 12-12-2021 13:28-0400 Systolic blood pressure 120 mm[Hg] Shereen Tannhof GRAILS WEB APPLICATION DEVELOPER.DAIRY CHEMIST Work Phone: [facility] 11-25-2021 10:41-0400 Body temperature 97.81 [degF] Jens Wood GRAILS WEB APPLICATION DEVELOPER.DAIRY CHEMIST Work Phone: [facility] 11-25-2021 10:41-0400 Body weight 126.55 kg Jens Wood GRAILS WEB APPLICATION DEVELOPER.DAIRY CHEMIST Work Phone: [facility] 11-25-2021 10:41-0400 Diastolic blood pressure 80 mm[Hg] Jens Israel GRAILS WEB APPLICATION DEVELOPER.DAIRY CHEMIST Work Phone: [facility] 11-25-2021 10:41-0400 Heart rate 88 /min Jens Israel GRAILS WEB APPLICATION DEVELOPER.DAIRY CHEMIST Work Phone: [facility] 11-25-2021 10:41-0400 Respiratory rate 16 /min Jens Israel GRAILS WEB APPLICATION DEVELOPER.DAIRY CHEMIST Work Phone: [facility] 11-25-2021 10:41-0400 SaO2% (BldA) [Mass fraction] 99 % Jens Wood APRN.RODRIGUEZ Work Phone: [facility] 11-25-2021 10:41-0400 Systolic blood pressure 144 mm[Hg] Jens Wood APRN.DAIRY CHEMIST Work Phone: [facility] 08-09-2021 14:18-0400 Body temperature 99.39 [degF] Ramiro Null APRN.DAIRY CHEMIST, DNP Work Phone: [facility] 08-09-2021 14:18-0400 Body weight 122.47 kg Ramiro Null APRN.DAIRY CHEMIST, DNP Work Phone: [facility] 08-09-2021 14:18-0400 Diastolic blood pressure 78 mm[Hg] Ramiro Null APRN.DAIRY CHEMIST, DNP Work Phone: [facility] 08-09-2021 14:18-0400 Heart rate 81 /min Ramiro Null APRN.DAIRY CHEMIST, DNP Work Phone: [facility] 08-09-2021 14:18-0400 Respiratory rate 20 /min Ramiro Null APRN.DAIRY CHEMIST, DNP Work Phone: [facility] 08-09-2021 14:18-0400 SaO2% (BldA) [Mass fraction] 95 % Ramiro Null APRN.DAIRY CHEMIST, DNP Work Phone: [facility] 08-09-2021 14:18-0400 Systolic blood pressure 138 mm[Hg] Ramiro Null APRN.DAIRY CHEMIST, DNP Work Phone: [facility] 07-29-2021 13:14-0400 Body weight 124.29 kg Ramiro Null APRN.DAIRY CHEMIST, DNP Work Phone: [facility] 07-29-2021 13:14-0400 Diastolic blood pressure 80 mm[Hg] Ramiro Null APRN.DAIRY CHEMIST, DNP Work Phone: [facility] 07-29-2021 13:14-0400 Heart rate 84 /min Ramiro Null APRN.DAIRY CHEMIST, DNP Work Phone: [facility] 07-29-2021 13:14-0400 Respiratory rate 20 /min Ramiro Blaz GRAILS WEB APPLICATION DEVELOPER.DAIRY CHEMIST, DNP Work Phone: [facility] 07-29-2021 13:14-0400 SaO2% (BldA) [Mass fraction] 99 % Ramiro Blaz GRAILS WEB APPLICATION DEVELOPER.DAIRY CHEMIST, DNP Work Phone: [facility] 07-29-2021 13:14-0400 Systolic blood pressure 128 mm[Hg] Ramiro Blaz GRAILS WEB APPLICATION DEVELOPER.DAIRY CHEMIST, DNP Work Phone: [facility] 07-17-2021 10:55-0400 Body weight 124.74 kg Shereen Tannhof GRAILS WEB APPLICATION DEVELOPER.DAIRY CHEMIST Work Phone: [facility] 07-17-2021 10:55-0400 Diastolic blood pressure 72 mm[Hg] Shereen Tannhof GRAILS WEB APPLICATION DEVELOPER.DAIRY CHEMIST Work Phone: [facility] 07-17-2021 10:55-0400 Heart rate 70 /min Shereen Tannhof GRAILS WEB APPLICATION DEVELOPER.DAIRY CHEMIST Work Phone: [facility] 07-17-2021 10:55-0400 Respiratory rate 20 /min Shereen Tannhof GRAILS WEB APPLICATION DEVELOPER.DAIRY CHEMIST Work Phone: [facility] 07-17-2021 10:55-0400 SaO2% (BldA) [Mass fraction] 97 % Shereen Tannhof GRAILS WEB APPLICATION DEVELOPER.DAIRY CHEMIST Work Phone: [facility] 07-17-2021 10:55-0400 Systolic blood pressure 120 mm[Hg] Shereen Tannhof GRAILS WEB APPLICATION DEVELOPER.DAIRY CHEMIST Work Phone: [facility] 07-15-2021 12:42-0400 Body temperature 98.2 [degF] Tessie Athy PA-C Work Phone: [facility] 07-15-2021 12:42-0400 Body weight 125.01 kg Tessie Athy PA-C Work Phone: [facility] 07-15-2021 12:42-0400 Diastolic blood pressure 86 mm[Hg] Tessie Athy PA-C Work Phone: [facility] 07-15-2021 12:42-0400 Heart rate 94 /min Tessiegeorge Altamiranovenita PA-C Work Phone: [facility] 07-15-2021 12:42-0400 Respiratory rate 24 /min Tessie Altamiranovenita PA-C Work Phone: [facility] 07-15-2021 12:42-0400 SaO2% (BldA) [Mass fraction] 97 % Tessie Altamiranoy PA-C Work Phone: [facility] 07-15-2021 12:42-0400 Systolic blood pressure 146 mm[Hg] Tessiegeorge Altamiranovenita PA-C Work Phone: [facility] 01-01-2017 14:05-0400 BMI (Body Mass Index) 38.16 kg/m2 Melany Khanna PA-C [facility] Work Phone: 01-01-2017 14:05-0400 BP Diastolic 80 mm[Hg] Melany Khanna PA-C [facility] Work Phone: 01-01-2017 14:05-0400 BP Systolic 134 mm[Hg] MARK [facility] Work Phone: 01-01-2017 14:05-0400 Height 172.72 cm MARK [facility] Work Phone: 01-01-2017 14:05-0400 Pulse (Heart Rate) 64 /min MARK [facility] Work Phone: 01-01-2017 14:05-0400 Respiratory Rate 20 /min MARK [facility] Work Phone: 01-01-2017 14:05-0400 Weight 113.85 kg MARK [facility] Work Phone: 03-14-2016 08:34-0500 BSA (Body Surface Area) 2.21 m2 Melany Khanna PA-C [facility] Work Phone: 03-29-2015 09:30-0500 BP Diastolic 90 mm[Hg] Melany Khanna PA-C [facility] Work Phone: 03-29-2015 09:30-0500 BP Diastolic 96 mm[Hg] Melany Khanna PA-C [facility] Work Phone: 03-29-2015 09:30-0500 BP Systolic 120 mm[Hg] Melany Khanna PA-C [facility] Work Phone: 03-29-2015 09:30-0500 BP Systolic 122 mm[Hg] Melany Khanna PA-C [facility] Work Phone: 03-29-2015 09:30-0500 Pulse (Heart Rate) 72 /min Melany Khanna PA-C [facility] Work Phone: 03-29-2015 09:30-0500 Pulse (Heart Rate) 60 /min Melany Khanna PA-C [facility] Work Phone: Encounters Encounter Date Encounter Type Care Provider Facility Start: 03-19-2023 End: 03-19-2023 ambulatory TREV PATINO Facility:[facility] Start: 03-11-2023 Telephone encounter Kelsie Sandhu Ph [...] et rgnt auto w/o microscopy Shereen Holt GRAILS WEB APPLICATION DEVELOPER.DAIRY CHEMIST Work Phone: Start: 01-18-2022 PFIZER-BIONTECH COVI D-19 BIVALENT BOOSTER VACCINE, AGE 12+ YR Michel Wiggins DO Work Phone: Start: 01-18-2022 INFLUENZA SEASONAL QUADRIVALENT HIGH DOSE AGE 65+ Delvin Aggarwal MD Work Phone: Start: 09-05-2021 Arthrocentesis aspir &/inj major jt/bursa w/o us Yaya Ibarra MD Work Phone: Start: 07-25-2021 PFIZER-BIONTECH COVI D-19 VACCINE, AGE 12+ YR (CONTRERAS TOP) Alex Genao MD Work Phone: Start: 07-03-2021 Prothrombin time [facility] Start: 01-06-2018 Colonoscopy Kelsie yoon [facility] Start: 01-30-2017 End: 02-02-2017 Prgrmng dev eval [...] 11-17-2016 Follow Up Appt 3 months Tasha Roegrs Start: 07-30-2016 End: 11-17-2016 Pacer Clinic Johan Perry MD Start: 07-30-2016 End: 07-30-2016 Prgrmng dev eval implantable in persn 1 ld lani Perry MD Start: 06-19-2016 End: 06-19-2016 *BMP Johan Perry MD Start: 06-19-2016 End: 06-19-2016 MANAGER TALENT ACQUISITION Johan Perry MD Start: 06-19-2016 End: 11-17-2016 Follow Up Appt 3 months Tasha Rogers Start: 06-19-2016 End: 06-19-2016 Magnesium [Mass/volume] in Serum or Plasma Johan Perry MD Start: 06-19-2016 End: 11-17-2016 Pacer Jeanne Perry MD Start: 06-19-2016 End: 06-23-2016 Prgrmng dev eval implantable in persn 1 ld lani Perry MD Start: 06-19-2016 End: 06-20-2016 Referral to carry out clerk and shelf stocker Johan Perry MD Start: 05-21-2016 End: 05-21-2016 [...] Johan Perry MD Start: 07-03-2015 End: 07-03-2015 MANAGER TALENT ACQUISITION Johan Perry MD Start: 07-03-2015 End: 07-03-2015 [...] PA-C Work Phone: Start: 03-29-2015 End: 03-29-2015 MANAGER TALENT ACQUISITION Melany Khanna PA-C Work Phone: Start: 03-29-2015 End: 03-29-2015 Follow Up Appt 3 months Melany ojeda PA-C Work Phone: Start: 01-05-2015 End: 03-05-2015 Follow Up Appt 3 months Mleany ojeda PA-C Work Phone: Start: 01-05-2015 End: 03-05-2015 Pacer Clinic Melany Khanna PA-C Work Phone: Start: 01-05-2015 End: 01-08-2015 Prgrmng dev eval implantable in persn 1 ld dfb Melany Khanna PA-C Work Phone: Start: 12-27-2014 End: 03-05-2015 Cardiac Rehab Jhoan Perry MD Start: 12-27-2014 End: 12-28-2014 Documentation [...] Johan Perry MD Start: 09-27-2014 End: 09-27-2014 MANAGER TALENT ACQUISITION Melany Khanna PA-C Work Phone: Start: 09-27-2014 [...] Johan Perry MD Start: 09-06-2013 End: 09-06-2013 MANAGER TALENT ACQUISITION Melany Khanna PA-C Work Phone: Start: 09-06-2013 [...] Activity Detail Author Start: 01-07-2028 Colonoscopy COLONOSCOPY [facility] Start: 01-07-2028 COLORECTAL CANCER SCREENING COLORECTAL CANCER SCREENING [facility] Start: 10-17-2027 Urine microalbumin profile [facility] Start: 02-24-2024 Annual PCP Team Chronic Disease Visit Annual PCP Team Chronic Disease Visit [facility] Start: 02-18-2024 Annual PCP Team Chronic Disease Visit Annual PCP Team Chronic Disease Visit [facility] Start: 11-18-2023 ANNUAL PCP TEAM CHRONIC DISEASE VISIT ANNUAL PCP TEAM CHRONIC DISEASE VISIT [facility] Start: 11-18-2023 BP CONTROLLED (<130/80) BP CONTROLLED (<130/80) [facility] Start: 11-18-2023 Creatinine measurement Serum Creatinine [facility] Start: 11-18-2023 SERUM CREATININE SERUM CREATININE [facility] Start: 10-15-2023 BP CONTROLLED (<130/80) BP CONTROLLED (<130/80) [facility] Start: 10-08-2023 SERUM CREATININE SERUM CREATININE [facility] Start: 09-23-2023 ANNUAL PCP TEAM CHRONIC DISEASE VISIT ANNUAL PCP TEAM CHRONIC DISEASE VISIT [facility] Start: 08-06-2023 3 comp foot exam completed DIABETIC FOOT EXAM [facility] Start: 08-06-2023 Diabetic foot examination Diabetic Foot Exam [facility] Start: 07-12-2023 HEMOGLOBIN/HEMATOCRIT HEMOGLOBIN/HEMATOCRIT [facility] Start: 07-12-2023 Hepatitis B surface antibody level LDL CHOLESTEROL [facility] Start: 07-12-2023 SERUM CREATININE SERUM CREATININE [facility] Start: 06-21-2023 ANNUAL PCP TEAM CHRONIC DISEASE VISIT ANNUAL PCP TEAM CHRONIC DISEASE VISIT [facility] Start: 05-27-2023 HEMOGLOBIN/HEMATOCRIT HEMOGLOBIN/HEMATOCRIT [facility] Start: 05-27-2023 SERUM CREATININE SERUM CREATININE [facility] Start: 05-12-2023 ANNUAL PCP TEAM CHRONIC DISEASE VISIT ANNUAL PCP TEAM CHRONIC DISEASE VISIT [facility] Start: 05-05-2023 ANNUAL PCP TEAM CHRONIC DISEASE VISIT ANNUAL PCP TEAM CHRONIC DISEASE VISIT [facility] Start: 05-05-2023 Covid-19 Vaccine (6 - Pfizer series) Covid-19 Vaccine (6 - Pfizer series) [facility] Start: 04-22-2023 ANNUAL PCP TEAM CHRONIC DISEASE VISIT ANNUAL PCP TEAM CHRONIC DISEASE VISIT [facility] Start: 04-22-2023 BP CONTROLLED (<130/80) BP CONTROLLED (<130/80) [facility] Start: 04-19-2023 End: 07-19-2023 ALBUMIN/CREAT RATIO RND UR ALBUMIN/CREAT RATIO RND UR Lab Routine Type 2 diabetes mellitus with diabetic neuropathy, with long-term current use of insulin (HCC) Expected: 04/19/2023 (Approximate), Expires: 07/19/2023 [facility] Work Phone: Immunizations Immunization Date Immunization Notes Care Provider Edmundo pruitt 01-02-2023 COVID-19 vaccine, ag e 12+ yr, season (PFIZER-BIONTECH) Immunization [place] Work Phone: [facility] Work Phone: 01-02-2023 influenza (HD-IIV4) vaccine, age 65+ yr, high dose, quadrivalent, PF (FLUZONE HIGH-DOSE) Immunization [place] Work Phone: [facility] Work Phone: 01-28-2022 influenza virus vaccine, unspecified formulation Trev Patino MD Work Phone: [facility] 01-18-2022 COVID-19 booster vaccine, age 12+ yr, bivalent (PFIZER-BIONTECH) Immunization [place] Work Phone: [facility] Work Phone: 01-18-2022 influenza, high-dose , quadrivalent vaccine (FLUZONE HIGH DOSE QUADRIVALENT) Immunization [place] Work Phone: [facility] 07-25-2021 COVID-19 vaccine, ag e 12+ yr (PFIZER-BIONTECH - CONTRERAS TOP) Mi Nurse Work Phone: [facility] Work Phone: 01-19-2021 influenza, high-dose , quadrivalent vaccine (FLUZONE HIGH DOSE QUADRIVALENT) Kelsie [facility] Work Phone: 01-10-2021 COVID-19 vaccine, ag e 12+ yr (PFIZER-BIONTECH - PURPLE TOP) Kelsie Detwiler [facility] 06-13-2020 COVID-19 vaccine, ag e 12+ yr (PFIZER-BIONTECH - PURPLE TOP) Kelsie Detwiler [facility] 05-23-2020 COVID-19 vaccine, ag e 12+ yr (PFIZER-BIONTECH - PURPLE TOP) Kelsie Detwiler [facility] 01-20-2020 influenza, high-dose , quadrivalent vaccine (FLUZONE HIGH DOSE QUADRIVALENT) [facility] Work Phone: 01-14-2019 influenza, high dose seasonal, preservative-free Kelsie Detwiler [facility] 01-26-2018 influenza, high dose seasonal, preservative-free Kelsie Detwiler [facility] 01-19-2017 influenza, high dose seasonal, preservative-free Kelsie Detwiler [facility] Work Phone: 01-18-2016 influenza, high dose seasonal, preservative-free Kelsie Detwiler [facility] Work Phone: 01-24-2015 influenza, high dose seasonal, preservative-free Kelsie Detwiler [facility] Work Phone: 06-07-2014 pneumococcal conjuga te vaccine, 13 valent [facility] 01-06-2013 influenza virus vaccine, unspecified formulation Kelsie Cerrato [facility] 03-30-2012 pneumococcal polysaccharide vaccine, 23 valent Ramiro Null APRN.DAIRY CHEMIST, DNP Work Phone: [facility] 01-31-2009 novel [id number], preservative-free, injectable Kelsie Cerrato [facility] 09-16-2007 tetanus toxoid, redu megha diphtheria toxoid, and acellular pertussis vaccine, adsorbed Kelsiekallie Cerrato [facility] Work Phone: Payers Date Payer Category Payer Medicare [id number] 2013 Medicare [id number] 2013 Unknown [employer] MEDICARE SUPPLEMENT [id number] 2013-Present [phone] [id number] [employer] [place] [address] Indemnity [id number] 2013 Unknown [employer] [employer] [employer] [place] MEDICARE SUPPLEMENT [id number] 2013-Present [phone] [id number] [employer] [address] [place] [address] Indemnity [id number] 2010 Medicare MEDICARE MEDICAR E A AND B [id number] 2010-Present [phone] [place] [address] Medicare [id number] 2010 Medicare MEDICARE MEDICAR E A AND B [id number] 2010-Present [phone] [place] [address] Medicare [id number] 2010 Medicare [id number] Social History Date Type Detail Facility Start: 03-25-2011 End: 10-14-2022 Tobacco smoking status NHIS Ex-smoker [facility] End: 08-12-2007 History of tobacco use Current smoker [facility] End: 08-12-2007 History of tobacco use Cigar Smoker [facility] Start: 06-20-2021 End: 02-17-2023 Alcohol intake Current non-drinker of alcohol (finding) [facility] Start: 09-10-2019 End: 01-22-2022 History SDOH Alcohol Frequency 1 [facility] Start: 09-10-2019 End: 05-12-2022 History SDOH Social Connections Phone 98 [facility] Start: 09-10-2019 End: 05-12-2022 History SDOH Social Connections Membership 2 [facility] Start: 12-17-2018 End: 05-12-2022 History SDOH Social Connections Living 3 [facility] Start: 09-10-2019 End: 08-08-2021 History SDOH Physical Activity DPW 0 [facility] Start: 09-10-2019 History SDOH Stress 5 [facility] Start: 09-09-2019 Education 12 [facility] Start: 1945 Sex Assigned At Male [facility] Start: 07-05-2021 End: 01-29-2022 Exposure to SARS-CoV-2 (event) Not sure [facility] Start: 03-25-2011 End: 10-14-2022 Tobacco use and exposure Smokeless tobacco non-user [facility] Start: 01-21-2022 Tobacco Comment 2-3 per day [facility] Start: 01-11-2022 End: 01-21-2022 Exposure to SARS-CoV-2 (event) Yes [facility] Work Phone: Start: 05-12-2022 End: 08-08-2022 History of Social function [facility] Start: 05-12-2022 End: 08-08-2022 Social connection and isolation panel [facility] In a typical week, h ow many times do you talk on the telephone with family, friends, or neighbors? Patient refused [facility] Do you belong to any clubs or organizations such as hindu groups, unions, fraternal or athletic groups, or school groups? No [facility] Are you now , , , , never or living with a partner? [facility] How often to you hav e a drink containing alcohol? Never [facility] Do you feel stress - tense, restless, nervous, or anxious, or unable to sleep at night because your mind is troubled all the time - these days [OSQ] To some extent [facility] (I/We) worried wheth er (my/our) food would run out before (I/we) got money to buy more. DK or Refused [facility] Start: 01-18-2020 Gender identity Identifies as male gender (finding) [facility] Start: 01-18-2020 Sexual orientation Heterosexual (finding) [facility] Medical Equipment Procedure Code Equipment Code Equipment Origin al Text Equipment Identifier Dates Start: 09-16-2013 Goals Date Patient Goal Desired Activity /State Personal health goal Clinical Notes 07-28-2018 to 03-11-2023 Telephone Encounter - Vera Watson RN - 03/11/2023 1:23 PM ESTTelephone Encounter - Kelsie Cerrato [facility] - 03/11/2023 11:43 AM Cholo Arroyo [facility] - 02/23/2023 1:30 PM ESTPatient Instructions Note Date & Type Note Facility 03-11-2023 Miscellaneous Notes Juice Rice also left a voicemail message with the patient's home INR result today. Noted result has been addressed below. Meaghan Watson RN Pharmacy Anticoagulation Clinic [facility] Anticoagulation Episode Summary Anticoagulation Care Providers Provider Role Specialty Phone number Trev Patino MD Referring Family Medicine [phone] Lovely Devi is a 77 year old [...] Pharmacy Anticoagulation Clinic Pharmacy Anticoagulation Clinic Pager: [phone]. documented in this encounter [facility] 11-29-2023 Miscellaneous Notes [facility] Anticoagulation Episode Summary Anticoagulation Care Providers Provider Role Specialty Phone number Trev Patino MD Referring Family Medicine [phone] Lovely Devi is a 77 year old [...] Patient denies need for refills. Kelsie Cerrato [facility] Clinical Pharmacist, Pharmacy Anticoagulation Clinic Pharmacy Anticoagulation Clinic Pager: [phone]. PATIENT CALL Patient called call center regarding [...] updated PAF for signature and then to Aasonn. Will route to [facility] to address 02/24 result. Patient can be reached at [phone] (he stated he has a jennyfer on his phone and we will have to leave name before phone will picker operator). PT INR (no units) Date Value 07/03/2021 2.7 (biotel) 06/19/2021 2.6 (biotel) 06/05/2021 3.3 (biotel) INR Home CoaguChek (no units) Date Value 10/29/2022 1.7 10/15/2022 1.7 10/01/2022 2.8 Cristina Escobar ([place]) documented in this encounter [facility] 02-23-2023 Miscellaneous Notes OK to [...] Eleanor Nobles RN. documented in this encounter [facility] 02-23-2023 History of Presen t [...] Please apply 1 time free voucher: RxBin: [id number] PCN: [id number] Group: [id number] ID:[id number] 90 tablet 3 latanoprost (XALATAN) 0.005 % [...] humidity and lifetime supplies. Dx. JESSICA G47.33 799.23 - fax compliance download to [phone] 1 Device 0 blood sugar diagnostic (abcdexperts BLOOD GLUCOSE SYSTEM) test strip Use as instructed to check blood sugar 3 to 4 times daily DM: yes Insulin: yes DX:11.[address] (PROTONIX) 40 mg tablet Take 40 mg by mouth once daily. Lancets (ONE TOUCH ULTRASOFT LANCETS) lancets Use with Via Glucometer as directed 100 Each 3 No [...] neuropathy, with long-term current use of insulin ([facility]) - ICD9: 250.60, 357.2, V58.67, ICD10: [...] was 20 minutes. documented in this encounter [facility] 02-20-2023 Miscellaneous Notes Office received fax [employer] monitoring company that they are going [...] May Martinez Ma documented in this encounter [facility] 02-17-2023 History of Presen t illness Narrative Chief Complaint Patient presents with: ED Follow-up: [facility] ER for SOB HPI Lovely Devi is a 77 year old male who presents here today for ER Follow Up.. Here alone today, did not come with him. He has an advanced directive. He had called in on the to discuss his coumadin and nurse noticed he was breathing hard and instructed him to go to ER. Pt was at [facility] ER on 02/09/23 for c/o SOB. He [...] He does follow with a Pulmonology at [facility], Dr. Ayala. He was seen by his office a month ago, has not followed up or contacted Screening Unit Registered Nurse since ER visit. He does get intermittent [...] restart and what dosage. Below copied from [facility] Meditech: Chief Complaint: Shortness of Breath Detail [...] ST changes. Computer noted acute ST elevation LA however I do not think EKG represents [...] Coronary atherosclerosis of unspecified type of vessel, [place] or graft s/p LA in 1985 Diverticulosis of colon (without mention [...] HISTORY Procedure Laterality Date COLONOSCOPY N/A 11/05/2022 [facility] COLONOSCOPY FLX DX W/COLLJ SPEC WHEN PFRMD 12/21/2017 Dr. Anthony-repeat 3 years-11/2020 COLONOSCOPY W/BIOPSY SINGLE/MULTIPLE 02/21/2009 EGD W/O [facility] SPEC VARICIES INJ N/A 11/05/2022 [facility] ESOPHAGOGASTRODUODENOSCOPY TRANSORAL DIAGNOSTIC EGD ESOPHAGOGASTRODUODENOSCOPY TRANSORAL DIAGNOSTIC 02/16/2008 EGD inpt [facility] H-pylori negative ESOPHAGOGASTRODUODENOSCOPY TRANSORAL DIAGNOSTIC 05/24/2015 EGD ESOPHAGOGASTRODUODENOSCOPY TRANSORAL DIAGNOSTIC 12/21/2017 Dr. Anthony-repeat 3 years-11/2020 HEART CATHETERIZATION 12/15/2014 [facility] - see scanned documents HEART SURGERY HX 1 stent LEFT HEART CATH,PERCUTANEOUS Cardiac cath, L heart LEFT HEART CATH,PERCUTANEOUS 06/20/2011 Cardiac cath, L heart PAST SURGICAL HISTORY OF ICD/ pacemaker at [facility] PERC TRANSL COR ANGIO Percutaneous Transluminal Coronary [...] Please apply 1 time free voucher: RxBin: [id number] N: 54 Group: [id number] ID:[id number] latanoprost (XALATAN) 0.005 % ophthalmic solution Use [...] Two tabs daily) flash glucose scanning reader (mSpot FILI 2 READER) Use to check blood [...] G47.33 327.23 - fax compliance download to [phone] blood sugar diagnostic (abcdexperts BLOOD GLUCOSE SYSTEM) test strip Use as instructed to check blood sugar 3 to 4 times daily DM: yes Insulin: yes DX:11.[address] (PROTONIX) 40 mg tablet Take 40 mg by mouth once daily. Lancets (ONE TOUCH ULTRASOFT LANCETS) lancets Use with Via Glucometer as directed No current facility-administered medications [...] Past Histories independently gathered by the clinical account support rep and the remaining scribed note accurately describes [...] May Martinez Ma documented in this encounter [facility] 02-17-2023 Instructions May Martinez Ma - 02/17/2023 10:00 AM EST Restart coumadin at 3 mg Mon/Wed/Fri and 6 mg all other days. Pharmacist has been managing his INR and coumadin dosages. Recheck INR in 1 week. documented in this encounter [facility] 02-10-2023 History of Presen t [...] appointment? No Reason for Outreach [facility] [place] Payer: Payor: MEDICARE / Plan: MEDICARE A [...] talking in complete sentences Patient follows with Street Commissioner and Screening Unit Registered Nurse at [place]. Non [facility] providers Contacted for: Goals/Falls/ADL Update Contact made with patient: Yes Patient identified by name and date of . Discussed care with: patient Goal Setting I would like to take some time today to discuss your personal health goals. Yes, patient has goals. Capture the goal the patient wants to accomplish: . Does the goal align with programs offered at the [facility]? No Patient accepts client care specialist. AUGUSTO Education Ordered -: Yes Thank you for your time today. I am excited to work together in managing your health! You will receive information on next steps through your [employer] account, and I will check back within a few weeks to ensure you have all that you need to use the program successfully. Most people know what to do to become healthier, yet struggle to put it into action on their own, It can be hard to maintain a healthy lifestyle, especially when life is so stressful. Can we connect you with a [facility] Health Cooler Man to find a program that could help you meet your goals? No Falls completed:Yes ADL's updated: Yes Are you experiencing any new or worsening symptoms you need to talk about today? No Disease Specific Do you check your blood pressure at home? No Do you have new or worsening shortness of breath with activity? Yes Based on curriculum and assessment director, the following disposition is advised: No symptoms or symptoms present, not severe. Routed to: No Action Needed AUGUSTO Education Provided this Outreach: Yes Kalia Ambrocio RN February 10, 2023 2:45 PM documented in this encounter [facility] 02-10-2023 Miscellaneous Notes Patient currently enrolled in [employer] PAP for Trulicity, Basaglar and Humalog. Will need to complete renewal application for 2023. Will work with utility technician team for renewal application. ASSESSMENT/PLAN: 1. Type 2 diabetes mellitus with diabetic neuropathy, with long-term current use of insulin (HCC) - ICD9: 250.60, 357.2, V58.67, ICD10: E11.40, Z79.4 - CONSULT TO PAP FOR AMBULATORY CLINIC PHARMACY Cholo Thorpe RP documented in this encounter [facility] 02-09-2023 Miscellaneous Notes Called and spoke with Ila. She states pt is currently in the ER at [facility]. Please see below for 2 concerns: Questions [...] still has his machine. Last INR per [facility] was 10/29/22. Pt has been off [...] hospital for it. 6. CARDIAC HISTORY: h/o LA, CHF, Afib, atrial flutter, cardiomyopathy, Paroxysmal ventricular [...] N/A 12. TRAVEL: N/A Protocols used: Breathing Ensueoshps-[id number] documented in this encounter [facility] 02-04-2023 Note [facility] 01-08-2023 Miscellaneous Notes Result from last month has already been addressed Trev Patino MD Pt had urine test done at [facility], results below. View External Labs - Miscellaneous Lab [ID [id number]] documented in this encounter [facility] 01-07-2023 Miscellaneous Notes Patient notified [...] has any questions. Thank you. Shereen Holt APRN.DAIRY CHEMIST documented in this encounter [facility] 01-01-2023 Miscellaneous Notes Phoned Violetta and went over notes below from Dr Romo with understanding. OK for verbal order. Violetta from [facility] Home Health calling asking for verbal order for recert alf one visit for one week, working on discharging the patient. Please advise documented in this encounter [facility] 01-01-2023 Miscellaneous Notes Pt notified. [...] out of breath so easily. Pt uses [facility]. Can you please call patient for update? Is he still having urinary symptoms? Thank you. Shereen Holt APRN.DAIRY CHEMIST Nurse Sheba from [facility] states pt is taking macrobid for a [...] Melissa Mckeon LPN documented in this encounter [facility] 10-02-2023 Miscellaneous Notes The following approved medication requests have been transmitted electronically. Requested Prescriptions Pending Prescriptions Disp Refills metOLazone (ZAROXOLYN) 2.5 mg tablet 30 tablet 1 Sig: Take 1 tablet by mouth once daily. warfarin (COUMADIN) 3 mg tablet 90 tablet 3 Si mg every Mon, Wed, Fri; 6 mg all other days Jaun Hinson APRN.DAIRY CHEMIST Patient phones requesting refills as follows: Requested Prescriptions Pending Prescriptions Disp Refills metOLazone (ZAROXOLYN) 2.5 mg tablet 30 tablet 1 Sig: Take 1 tablet by mouth once daily. warfarin (COUMADIN) 3 mg tablet 90 tablet 3 Si mg every Mon, Wed, Fri; 6 mg all other days CALVIN-11/17/22 Labs-11/17/22 NOV-none Please review and advise. Ila Almanza LPN documented in this encounter [facility] 12-26-2022 Note [facility] 12-26-2022 History of Presen t illness Narrative Primary Care Pharmacy Visit CC (Reason for Consult): (E11.22, N18.31, Z79.4) Type 2 diabetes mellitus with stage 3a chronic kidney disease, with long-term current use of insulin (HCC) (primary encounter diagnosis) (E11.40, Z79.4) Type 2 diabetes mellitus with diabetic neuropathy, with long-term current use of insulin ([facility]) Goal(s): <8% Last Collaborating Physician Visit: 11/17/22 Lovely Devi is a 77 year old male presenting for follow up visit by telephone. Patient consents to pharmacy collaborative practice agreement. . At last visit with pharmacy on 11/21/22 the following changes were made: Basaglar dose adjusted to match patient's self increased dose HPI: Continues to have [facility] Home Health care. PT is done but [...] Please apply 1 time free voucher: RxBin: [id number] PCN: 54 Group: [id number] ID:[id number] 90 tablet 3 dulaglutide (TRULICITY) 3 mg/0.5 [...] G47.33 327.23 - fax compliance download to [phone] 1 Device 0 blood sugar diagnostic (abcdexperts BLOOD GLUCOSE SYSTEM) test strip Use as instructed to check blood sugar 3 to 4 times daily DM: yes Insulin: yes DX:11.9 [address] (PROTONIX) 40 mg tablet Take 40 mg by mouth once daily. Lancets (ONE TOUCH ULTRASOFT LANCETS) lancets Use with Via Glucometer as directed 100 Each 3 No [...] disease, with long-term current use of insulin ([facility]) - ICD9: 250.40, 585.3, V58.67, ICD10: [...] was 20 minutes. documented in this encounter [facility] 12-19-2022 Miscellaneous Notes Violetta given VO. Ariana Freeman MA Okay to continue alf as requested. Dr. Patino's team will follow. Jaun Hinson APRN.DAIRY CHEMIST Violetta RN with [facility] calls to request an order to continue SN frequency for 1 wk 2 to monitor urinary symptoms. Patient recently reported urinary frequency. Culture was negative. Violetta requests call back at [phone]. Eleanor Nobles RN documented in this encounter [facility] 12-17-2022 Miscellaneous Notes See TE 12/17/2022. Eleanor Nobles RN No answer. Left message for patient to return call for results. Advised him that an abx was sent to his pharmacy. Sameera Christensen Urine shows possible uti.cover with macrobid until culture back. documented in this encounter [facility] 12-17-2022 Miscellaneous Notes Patient calls and notified of results and providers instructions. Patient verbalizes understanding. Patient reports that he is feeling fine. Patient hadn't started antibiotic so at this time he will not. Eleanor Nobles RN Final culture just came back negative. Shows urinary contamination. If feeling better, can stop macrobid. documented in this encounter [facility] 12-17-2022 Miscellaneous Notes Unable to reach patient by phone. Left voicemail with phone number for [employer] at for replacement sensors. Cholo Thorpe, PharmD, BCACP Primary Care Clinical Pharmacist Patient calling to give message to Cholo Thorpe [facility]. Pt reports he had two bad sensors [...] Estrella Edwards RN documented in this encounter [facility] 09-18-2023 Miscellaneous Notes Opened in error. documented in this encounter [facility] 12-12-2022 Miscellaneous Notes Call to Roma and notified her of [facility] placing orders. Asking for orders be faxed to [facility] at [phone]. This has been done within Epic. Day Richardson Ma Roma with [facility] calls to report that patient is complaining of urinary frequency and urine is brandi in color. Afebrile and no other symptoms. Roma is requesting an order for UA C&S. She has urine collected just needs order to drop specimen off at [facility]. Contact number for Roma is [phone]. Eleanor Nobles RN documented in this encounter [facility] 12-05-2022 Miscellaneous Notes Call to [...] he was told by Ce Faust at [facility] that he should not take coumadin bc [...] Melissa Mckeon LPN documented in this encounter [facility] 12-03-2022 Miscellaneous Notes Call placed to Franc with [facility] HH and verbal order given to continue HH POC as requested. Eleanor Nobles RN Okay to continue with home health. Jaun Hinson APRN.CNP Franc with [facility] HH calls to request orders to continue nursing HH services for an additional 1 wk 2 for monitoring patient until he is seen by Dr. Jackson for follow up for gi polyps. Requesting verbal order be phoned to [phone] if provider agrees. Eleanor Nobles RN documented in this encounter [facility] 11-28-2022 Miscellaneous Notes The following [...] Kaitlin King LPN documented in this encounter [facility] 11-21-2022 Note [facility] 11-21-2022 History of Presen t illness Narrative Primary Care Pharmacy Visit CC (Reason for Consult): (E11.40, Z79.4) Type 2 diabetes mellitus with diabetic neuropathy, with long-term current use of insulin ([facility]) (primary encounter diagnosis) Goal(s): <8% Last [...] Please apply 1 time free voucher: RxBin: [id number] PCN: [id number] Group: [id number] ID:[id number] 90 tablet 3 dulaglutide (TRULICITY) 3 mg/0.5 [...] G47.33 327.23 - fax compliance download to [phone] 1 Device 0 blood sugar diagnostic (abcdexperts BLOOD GLUCOSE SYSTEM) test strip Use as instructed to check blood sugar 3 to 4 times daily DM: yes Insulin: yes DX:11.9 [address] (PROTONIX) 40 mg tablet Take 40 mg by mouth once daily. Lancets (ONE TOUCH ULTRASOFT LANCETS) lancets Use with Via Glucometer as directed 100 Each 3 No [...] neuropathy, with long-term current use of insulin ([facility]) - ICD9: 250.60, 357.2, V58.67, ICD10: [...] was 20 minutes. documented in this encounter [facility] 11-17-2022 Miscellaneous Notes Message left on secure voicemail with verbal okay for start of care 11/10/22. Nadira Murillo RN OK for verbal okay for nursing start of care with date of 11/10/22, as requested Trev Patino MD nurse Joana @ [facility] calling with request for verbal okay for nursing start of care with date of 11/10/22 which is considered delay in start of care. Nursing is seeing patient for medication and disease education. May leave message on secure voice mail # [phone]. Nadira Murillo RN documented in this encounter [facility] 11-17-2022 Note [facility] 11-17-2022 History of Presen t illness Narrative Chief Complaint Patient presents with: Transition Of Care HPI Lovely Devi is a 77 year old male who presents here today for Hospital Discharge Follow up.. 14 day TCM Pt was admitted to [facility] on 11/05/22 with c/o chest pain. Discharged [...] find the cause of this. Follows with [facility], Dr. Perry. Pt believes he's scheduled for a f/u on 11/24 or somewhere around there. DVT - hx of DVT. Currently holding Coumadin due to anemia and GI Bleed. Concerned about re-occurring blood clots due to being off Coumadin. Below copied from [facility]: Date of Admission: 11/05/22 Date of Service: [...] Coronary atherosclerosis of unspecified type of vessel, hamilton or graft s/p LA in 1985 Diverticulosis of colon (without mention [...] DIAGNOSTIC EGD ESOPHAGOGASTRODUODENOSCOPY [facility]AGOGASTRODUODENOSCOPY TRANSORAL DIAGNOSTIC 05/24/2015 EGD ESOPHAGOGASTRODUODENOSCOPY TRANSORAL DIAGNOSTIC 12/21/2017 Dr. Anhtony-repeat 3 years-11/2020 HEART CATHETERIZATION 12/15/2014 [facility] - see scanned documents HEART SURGERY HX 1 stent LEFT HEART CATH,PERCUTANEOUS Cardiac cath, L heart LEFT HEART CATH,PERCUTANEOUS 06/20/2011 Cardiac cath, L heart PAST SURGICAL HISTORY OF ICD/ pacemaker at [facility] PERC TRANSL COR ANGIO Percutaneous Transluminal Coronary [...] Please apply 1 time free voucher: RxBin: [id number] PCN: [id number] Group: [id number] ID:[id number] dulaglutide (TRULICITY) 3 mg/0.5 mL pen injector Inject 3 mg subcutaneously one time a week. flash glucose scanning reader (MILLENNIUM BIOTECHN[employer]STQuantopian FILI 2 READER) Use to check blood [...] G47.33 327.23 - fax compliance download to [phone] isosorbide mononitrate ER (IMDUR) 30 mg 24 hr tablet Take 60 mg by mouth once daily. blood sugar diagnostic (abcdexperts BLOOD GLUCOSE SYSTEM) test strip Use as instructed to check blood sugar 3 to 4 times daily DM: yes Insulin: yes DX:11.[address] (PROTONIX) 40 mg tablet Take 40 mg by mouth once daily. Lancets (ONE TOUCH ULTRASOFT LANCETS) lancets Use with Via Glucometer as directed CRESTOR 40 MG TAB [...] Completed COLORECTAL CANCER SCREENING Discontinued Data reviewed [facility] reports from 11/05/22 to 11/09/22 ASSESSMENT/PLAN: 1. [...] Past Histories independently gathered by the clinical account support rep and the remaining scribed note accurately describes my personal service to the patient. Trev Patino MD The documentation for this note was completed by Day Richardson Ma acting as scribe for Trev Patino MD. November 17, 2022 2:32 PM. Day Dylan Landa documented in this encounter [facility] 11-14-2022 Note [facility] 11-14-2022 Note [facility] 11-13-2022 Miscellaneous Notes Franc notified and voiced understanding. May Martinez Ma Continue with the extra 40 mg dose of lasix daily over the weekend, so take a total of 120 mg lasix every day; will then se how he is doing on Thursday Trev Patino MD Franc- [facility] HH- reports patient's weight today is an [...] will call patient. documented in this encounter [facility] 11-11-2022 Miscellaneous Notes Noted and agree Trev Patino MD Hank from [facility] Home Health calling with PT plan of care, 2 visits weekly for 3 weeks working on functional mobility training. documented in this encounter [facility] 11-11-2022 Note HNO ID: [id number] Author: Juan Landa May Service: ? Author Type: ? Type: Progress Notes Filed: 11/11/2022 2:08 PM Note Text: Pt notified and voiced understanding. Will continue to monitor weight and keep office up to date. May Juan Landa [facility] 11-11-2022 Note HNO ID: [id number] Author: May Martinez Ma Service: ? Author Type: ? Type: Progress Notes Filed: 11/11/2022 2:08 PM Note Text: I would suggest that he take an extra 40 mg dose of lasix today Trev Patino MD [facility] 11-11-2022 Miscellaneous Notes Images from the original [...] notify/confirm on instructions for extended warfarin hold. Fidelia Gross PharmD, BCACP PATIENT CALL Patient called call center regarding procedure / off warfarin. Patient called and stated he had an EGD on 11/05 and they found sores in his stomach. Patient was advised by provider who did procedure to stay off warfarin until 12/04. Will route to [facility] [employer] [facility] as patient is on Lovenox list and will place patient on PPC list to see if patient will be resuming after that. Cristina Escobar (Compliance Quality Performance Analyst) Electronically signed by Shawn GonzálesCompliance Quality Performance Analyst), Amanda at 11/10/2022 2:22 PM EDT documented in this encounter [facility] 11-11-2022 History of Presen t illness Narrative Pt notified and voiced understanding. Will continue to monitor weight and keep office up to date. May Martinez Ma I would suggest that he take an extra 40 mg dose of lasix today Trev Patino MD TRANSITION CARE MANAGEMENT (TCM) INITIAL CONTACT Radiological Health Specialist Outreach Provider Action/FYI: 14 Day TCM Spoke [...] might be hidden SUMMARY: -Pt discharged from [facility] on 11/09/22. -Admitted for: Chest pains Below copied from [facility] [employer]: Date of Admission: 11/05/22 Date of [...] provider to review documented in this encounter [facility] 11-11-2022 Miscellaneous Notes Noted Trev Patino MD Argelia from [facility] calling with OT plan of care, one time only visit patient declined any further need for OT visits. Patient said he was doing fine with that. documented in this encounter [facility] 11-11-2022 Note [facility] 11-11-2022 Miscellaneous Notes The following approved medication [...] Please apply 1 time free voucher: RxBin: [id number] PCN: [id number] Group: [id number] ID:[id number] dulaglutide (TRULICITY) 3 mg/0.5 mL pen injector [...] at bedtime. Patient Assistance Medication. Jaun Hinson APRN.DAIRY CHEMIST Alexia from [facility] phones requesting refills, states the pharm [...] Please apply 1 time free voucher: RxBin: [id number] PCN: [id number] Group: [id number] ID:[id number] dulaglutide (TRULICITY) 3 mg/0.5 mL pen injector [...] Melissa Mckeon LPN documented in this encounter [facility] 11-11-2022 Miscellaneous Notes Franc notified. May Martinez Ma OK for plan of care OK to refill as ordered Trev Patino MD nurse Brennan @ [facility] calling for verbal okay for plan of care. Patient was seen today for start of care post hospitalization for GI bleed. Nursing will see patient 2 x week for two weeks and 1 x/week for two weeks for disease and medication education. Brennan's ph# [phone]. Requests refill on Potassium Chloride. Pended. Nadira Muirllo RN documented in this encounter [facility] 11-07-2022 Miscellaneous Notes Spoke with Taniya at [facility], gave verbal to start care at home. 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 Patient will be discharging from [facility] this weekend. They would like to start care on 11/10/22. Asking if provider is agreeable to follow patient for orders? Call Taniya at [phone]. Thank you. documented in this encounter [facility] 10-31-2022 Miscellaneous Notes Called and stp. Advised no bridging needed per Dr. Patino Pt will hold warfarin 10/31-11/04 and resume when cleared post procedure. Next home INR due Mon 11/10 Patient verbalized understanding and agrees with the plan. Susan Villegas PharmD I do not think he needs bridging Trev Patino MD [facility] Anticoagulation Perioperative Planning Lovely Devi is an 77 year old male being evaluated today for perioperative planning. Indication for anticoagulation: a-fib INR goal: 2-3 Referring physician: Dr. Patino Current anticoagulant: Warfarin Procedure: EGD/colonoscopy Date of procedure: 11/05 Procedural bleeding risk (see JACC appendix): Moderate Thrombosis risk (include [id number] if indication is afib): High Weight: Last [...] Trini Ludwig Next action for Anticoagulation Management: [facility] 10/31- did MD respond? Not sure if pt needs lovneox Next POCT: TM pt Bridge plan established and routed to the following: Referring provider for approval Susan Villegas [facility] Clinical Pharmacist, Pharmacy Anticoagulation Clinic Pharmacy Anticoagulation Clinic Pager: [phone] CHADS2-Vasc Score Breakdown 8 Total Score 2 Age >= 75 years old 1 History of CHF 1 History of hypertension 1 History of diabetes mellitus 2 History of stroke, TIA, or thromboemolism 1 History of vascular disease Routing to [facility] to review. Patient placed on Lovenox list. Next Action for Anti coag Management: [facility] 10/31 Meaghan Watson RN Pharmacy Anticoagulation Clinic PATIENT CALL Patient called call center regarding upcoming procedure. Patient will be having upper scope/colonoscopy 11/05. Patient was advised to stop warfarin starting today and to hold for five days. Patient can be reached at [phone] if needed. Chencho Helms (Compliance Quality Performance Analyst) Electronically signed by Scooter GonzálesCompliance Quality Performance Analyst)Chencho at 10/31/2022 11:01 AM EDT documented in this encounter [facility] 10-29-2022 Miscellaneous Notes Juice Rice also left a voicemail message with the patient's home INR result today. Noted result has been addressed below. Meaghan Watson RN Pharmacy Anticoagulation Clinic [facility] Anticoagulation Episode Summary Anticoagulation Care Providers Provider Role Specialty Phone number Trev Patino MD Referring Family Medicine [phone] Lovely Devi is a 77 year old [...] of liver or green tea, Ensure, Boost, [place] Instant Breakfast, Mulit-Vitamins, and V-8. Plan: Current Warfarin Dosing As of 10/29/2022 Full warfarin instructions: 6 mg every day; Starting 10/30/2022 Called and spoke to patient/caregiver Advised patient to increase total weekly regimen Next home INR check scheduled on 11/12/2022 Patient verbalizes understanding of the plan. Patient denies need for refills. Kelsie Cerrato RPh Clinical Pharmacist, Pharmacy Anticoagulation Clinic Pharmacy Anticoagulation Clinic Pager: [phone]. documented in this encounter [facility] 10-28-2022 Miscellaneous Notes The following approved medication requests have been transmitted electronically. Requested Prescriptions Pending Prescriptions Disp Refills rOPINIRole (REQUIP) 0.5 mg tablet 180 tablet 3 Sig: Take 2 tablets by mouth daily at bedtime. Jaun Hinson APRN.CNP Last office visit: 09/22/22 F/u scheduled: none May Martinez Ma documented in this encounter [facility] 10-20-2022 Miscellaneous Notes Addended by: DAVID LEE on: 10/20/2022 10:15 AM Modules accepted: Orders 11/28/2022 COLON/EGD WHITE Per Cristina Hung patient to seek PACC appointment piror to procedure due to Pacemaker documented in this encounter [facility] 10-15-2022 Miscellaneous Notes PATIENT CALL Sachin'suleman called regarding INR result for patient. Result has been addressed below, no further action needed. Chencho Helms, Electrical Technology Instructor (chief crna) Pharmacy Anticoagulation Clinic [facility] Anticoagulation Episode Summary Anticoagulation Care Providers Provider Role Specialty Phone number Trev Patino MD Referring Family Medicine [phone] Lovely Devi is a 76 year old [...] Pharmacy Anticoagulation Clinic Pharmacy Anticoagulation Clinic Pager: [phone]. documented in this encounter [facility] 10-14-2022 Note [facility] 10-14-2022 History of Presen t illness Narrative [...] Patient was seen in the ED at [facility] for above complaints on 10/08/22, report [...] for ASHD, atrial fibrillation, pacemaker, history of LA, stroke, type II diabetes mellitus, hypertension. Patient follows with Dr. Patino in primary care for his chronic medical conditions. PAST MEDICAL HISTORY Diagnosis Date ASHD (arteriosclerotic heart disease) 02/19/2015 Atrial fibrillation (HCC) 07/03/2011 Automatic implantable cardiac defibrillator in situ Petit's esophagus with esophagitis 03/01/2015 Benign neoplasm of colon Chronic diarrhea 09/16/2011 Coronary atherosclerosis of unspecified type of vessel, hamilton or graft s/p LA in 1985 Diverticulosis of colon (without mention [...] EGD ESOPHAGOGASTRODUODENOSCOPY TRANSORAL DIAGNOSTIC 02/16/2008 EGD inpt [facility] H-pylori negative ESOPHAGOGASTRODUODENOSCOPY TRANSORAL DIAGNOSTIC 05/24/2015 EGD ESOPHAGOGASTRODUODENOSCOPY TRANSORAL DIAGNOSTIC 12/21/2017 Dr. Anthony-repeat 3 years-11/2020 HEART CATHETERIZATION 12/15/2014 [facility] - see scanned documents HEART SURGERY HX 1 stent LEFT HEART CATH,PERCUTANEOUS Cardiac cath, L heart LEFT HEART CATH,PERCUTANEOUS 06/20/2011 Cardiac cath, L heart PAST SURGICAL HISTORY OF ICD/ pacemaker at [facility] PERC TRANSL COR ANGIO Percutaneous Transluminal Coronary [...] Please apply 1 time free voucher: RxBin: [id number] PCN: [id number] Group: [id number] ID:[id number] dulaglutide (TRULICITY) 3 mg/0.5 mL pen injector Inject 3 mg subcutaneously one time a week. flash glucose scanning reader (MILLENNIUM BIOTECHN[employer]IESSTYLE FILI 2 READER) Use to check blood [...] G47.33 327.23 - fax compliance download to [phone] isosorbide mononitrate ER (IMDUR) 30 mg 24 hr tablet Take 60 mg by mouth once daily. blood sugar diagnostic (abcdexperts BLOOD GLUCOSE SYSTEM) test strip Use as instructed to check blood sugar 3 to 4 times daily DM: yes Insulin: yes DX:11.[address] (PROTONIX) 40 mg tablet Take 40 mg by mouth once daily. 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 States may try to schedule with [facility] instead. He was given our radiology scheduler's direct contact information should he decide to [...] Cristina Rausch PA-C documented in this encounter [facility] 10-14-2022 Nurse Note REVIEW OF [...] Mammogram screening? N/A Last Colonoscopy: 2017 Riana Condon LPN documented in this encounter [facility] 10-10-2022 History of Presen t [...] Please apply 1 time free voucher: RxBin: [id number] PCN: [id number] Group: [id number] ID:[id number] dulaglutide (TRULICITY) 3 mg/0.5 mL pen injector Inject 3 mg subcutaneously one time a week. 6 mL 3 flash glucose scanning reader (mSpot FILI 2 READER) Use to check blood [...] G47.33 327.23 - fax compliance download to [phone] 1 Device 0 isosorbide mononitrate ER (IMDUR) 30 mg 24 hr tablet Take 60 mg by mouth once daily. 0 blood sugar diagnostic (abcdexperts BLOOD GLUCOSE SYSTEM) test strip Use as instructed to check blood sugar 3 to 4 times daily DM: yes Insulin: yes DX:11.9 [address] (PROTONIX) 40 mg tablet Take 40 mg by mouth once daily. Lancets (ONE TOUCH ULTRASOFT LANCETS) lancets Use with Riva Digital Mediauch Glucometer as directed 100 Each 3 CRESTOR [...] was 20 minutes. documented in this encounter [facility] 10-01-2022 Miscellaneous Notes Bantr message sent for therapeutic INR. documented in this encounter [facility] 09-22-2022 Note [facility] 09-22-2022 Instructions Shereen Holt APRN.CNP - 09/22/2022 [...] sooner as needed. documented in this encounter [facility] 09-22-2022 History of Presen t [...] but then developed an infection. Was in [facility] for 1 month. Currently at [facility] for rehab, antibiotics, is currently not weightbearing. [...] Coronary atherosclerosis of unspecified type of vessel, hamilton or graft s/p LA in 1985 Diverticulosis of colon (without mention [...] EGD ESOPHAGOGASTRODUODENOSCOPY TRANSORAL DIAGNOSTIC 02/16/2008 EGD inpt [facility] H-pylori negative ESOPHAGOGASTRODUODENOSCOPY TRANSORAL DIAGNOSTIC 05/24/2015 EGD ESOPHAGOGASTRODUODENOSCOPY TRANSORAL DIAGNOSTIC 12/21/2017 Dr. Anthony-repeat 3 years-11/2020 HEART CATHETERIZATION 12/15/2014 [facility] - see scanned documents HEART SURGERY HX 1 stent LEFT HEART CATH,PERCUTANEOUS Cardiac cath, L heart LEFT HEART CATH,PERCUTANEOUS 06/20/2011 Cardiac cath, L heart PAST SURGICAL HISTORY OF ICD/ pacemaker at [facility] PERC TRANSL COR ANGIO Percutaneous Transluminal Coronary [...] Please apply 1 time free voucher: RxBin: [id number] PCN: [id number] Group: [id number] ID:[id number] dulaglutide (TRULICITY) 3 mg/0.5 mL pen injector Inject 3 mg subcutaneously one time a week. flash glucose scanning reader (mSpot FILI 2 READER) Use to check blood [...] G47.33 327.23 - fax compliance download to [phone] isosorbide mononitrate ER (IMDUR) 30 mg 24 hr tablet Take 60 mg by mouth once daily. blood sugar diagnostic (abcdexperts BLOOD GLUCOSE SYSTEM) test strip Use as instructed to check blood sugar 3 to 4 times daily DM: yes Insulin: yes DX:11.[address] (PROTONIX) 40 mg tablet Take 40 mg by mouth once daily. Lancets (ONE TOUCH ULTRASOFT LANCETS) lancets Use with Riva Digital Mediauch Glucometer as directed CRESTOR 40 MG TAB [...] APRN.CNP This note was partially generated using [employer] voice recognition system. Note was reviewed for accuracy. There may be minor misspellings or grammar miscues with [employer] voice recognition. documented in this encounter [facility] 09-19-2022 Miscellaneous Notes The following approved medication requests have been transmitted electronically. Requested Prescriptions Pending Prescriptions Disp Refills gabapentin (NEURONTIN) 300 mg capsule 270 capsule 2 Sig: Take 3 capsules by mouth three times daily for 90 days. Jaun Hinson APRN.CNP Last office visit: 06/20/22 F/u scheduled: 09/22/22 May Martinez Ma documented in this encounter [facility] 09-17-2022 Miscellaneous Notes [facility] Anticoagulation Clinic Anticoagulation Episode Summary Anticoagulation Care Providers Provider Role Specialty Phone number Trev Patino MD Referring Family Medicine [phone] Lovely Devi is a 76 year old [...] of liver or green tea, Ensure, Boost, [place] Instant Breakfast, Mulit-Vitamins, and V-8. He said [...] Pharmacy Anticoagulation Clinic Pharmacy Anticoagulation Clinic Pager: [phone]. documented in this encounter [facility] 09-05-2022 Note [facility] 09-05-2022 History of Presen t illness Narrative [...] Please apply 1 time free voucher: RxBin: [id number] PCN: [id number] Group: [id number] ID:[id number] dulaglutide (TRULICITY) 3 mg/0.5 mL pen injector Inject 3 mg subcutaneously one time a week. 6 mL 3 flash glucose scanning reader (MI[employer]STQuantopian FILI 2 READER) Use to check blood [...] G47.33 327.23 - fax compliance download to [phone] 1 Device 0 isosorbide mononitrate ER (IMDUR) 30 mg 24 hr tablet Take 60 mg by mouth once daily. 0 blood sugar diagnostic (abcdexperts BLOOD GLUCOSE SYSTEM) test strip Use as instructed to check blood sugar 3 to 4 times daily DM: yes Insulin: yes DX:11.9 [address] (PROTONIX) 40 mg tablet Take 40 mg by mouth once daily. Lancets (ONE TOUCH ULTRASOFT LANCETS) lancets Use with Via Glucometer as directed 100 Each 3 CRESTOR [...] was 20 minutes. documented in this encounter [facility] 09-03-2022 Miscellaneous Notes [facility] Anticoagulation Clinic Anticoagulation Episode Summary Anticoagulation Care Providers Provider Role Specialty Phone number Trev Patino MD Referring Family Medicine [phone] Lovely Devi is a 76 year old [...] check scheduled on 09/17/2022 Will send a Inkomerce message also. Kelsie Cerrato [facility] Clinical Pharmacist, Pharmacy Anticoagulation Clinic Pharmacy Anticoagulation Clinic Pager: [phone]. documented in this encounter [facility] 08-08-2022 Note [facility] 07-30-2022 Miscellaneous Notes Spoke to patient. He is having a heart cath on 08/06 at [facility]. He was advised by his carry out clerk and shelf stocker, Dr. Perry to hold warfarin 3 days [...] days prior to the procedure. Routing to [facility] to review. Meaghan Watson RN Pharmacy Anticoagulation Clinic PATIENT CALL Patient called call center regarding procedure. Patient will have a catheterization on 08/06/2022. Patient was advised to hold warfarin on 08/06/2022. Patient can be reached at [phone] Chencho Helms (Compliance Quality Performance Analyst) documented in this encounter [facility] 07-30-2022 Miscellaneous Notes Mychart message sent for nearly therapeutic INR. documented in this encounter [facility] 07-21-2022 Note [facility] 07-21-2022 History of Presen t illness Narrative Associated Order(s): Large Joint Arthro/Inj: R knee joint Post-Procedure Diagnose(s): Primary osteoarthritis of right knee; Chronic pain of right knee Yaya Ibarra MD Department of Orthopaedics Orthopaedics [address] [facility] [address] Dept: [phone] Dept July 21, 2022 CHIEF COMPLAINT: Follow [...] knee joint Informed Consent Consent Obtained: Verbal [place] Protocol A moment to CARE was completed. [...] Please apply 1 time free voucher: RxBin: [id number] PCN: [id number] Group: [id number] ID:[id number] dulaglutide (TRULICITY) 3 mg/0.5 mL pen injector Inject 3 mg subcutaneously one time a week. flash glucose scanning reader (MILLENNIUM BIOTECH[employer]STQuantopian FILI 2 READER) Use to check blood [...] humidity and lifetime supplies. Dx. JESSICA G47.33 327.34 - fax compliance download to [phone] isosorbide mononitrate ER (IMDUR) 30 mg 24 hr tablet Take 60 mg by mouth once daily. blood sugar diagnostic (abcdexperts BLOOD GLUCOSE SYSTEM) test strip Use as instructed to check blood sugar 3 to 4 times daily DM: yes Insulin: yes DX:11.[address] (PROTONIX) 40 mg tablet Take 40 mg by mouth once daily. Lancets (ONE TOUCH ULTRASOFT LANCETS) lancets Use with Riva Digital Mediauch Glucometer as directed CRESTOR 40 MG TAB Take one(1) tablet daily. NITROGLYCERIN 0.3 MG SUBLINGUAL TAB Dissolve 0.4 mg under the tongue. Usual dose for angina is 1 tablet every 5 minutes for maximum of 3 doses in 15 minutes. No current facility-administered medications for this visit. Allergies: Morphine and Rocephin [Ceftriaxone Sodium] Yaya Ibarra MD documented in this encounter [facility] 07-17-2022 Miscellaneous Notes TC to [facility] and gave verbal order. Instructions understood. Ila Almanza LPN OK for verbal order for visit frequency order: beginning 04-27-23: 2 x week for 3 weeks, and beginning --23: 1 x week for 4 weeks, as requested Trev Patino MD Joana- [facility]- reports she is going through charts and requesting verbal order for late entry - visit frequency order: beginning 04-27-23: 2 x week for 3 weeks, and beginning 2--23: 1 x week for 4 weeks. Please phone Joana with vo. documented in this encounter [facility] documented in this encounter [facility]23 Miscellaneous Notes* Telephone Encounter - Shereen Holt APRN.CNP - 07/16/2022 5:23 PM EDT Called Mamie at [facility], no answer, left message on confidential line giving verbal order for nurse visit for a wound check. Shereen Holt APRN.CNP * Telephone Encounter - Kaitlin King LPN - 07/16/2022 10:57 AM EDT Mamie from [facility] Home Health calling requesting verbal order for one more skilled nurse visit to check patient wounds. Plan is to discharge patient after that if wounds are healed. [facility] History of Present illness Narrative* Cholo Thorpe, [facility] - 07/11/2022 11:30 AM EDT Primary Care [...] Please apply 1 time free voucher: RxBin: [id number] PCN: [id number] Group: [id number] ID:[id number] dulaglutide (TRULICITY) 3 mg/0.5 mL pen injector Inject 3 mg subcutaneously one time a week. 6 mL 3 flash glucose scanning reader (MI[employer]STQuantopian FILI 2 READER) Use to check blood [...] G47.33 327.23 - fax compliance download to [phone] 1 Device 0 isosorbide mononitrate ER (IMDUR) 30 mg 24 hr tablet Take 60 mg by mouth once daily. 0 blood sugar diagnostic (abcdexperts BLOOD GLUCOSE SYSTEM) test strip Use as instructed to check blood sugar 3 to 4 times daily DM: yes Insulin: yes DX:11.[address] (PROTONIX) 40 mg tablet Take 40 mg by mouth once daily. Lancets (ONE TOUCH ULTRASOFT LANCETS) lancets Use with Riva Digital Mediauch Glucometer as directed 100 Each 3 CRESTOR [...] neuropathy, with long-term current use of insulin ([facility]) -ICD9: 250.60, 357.2, V58.67, ICD10: E11.40, [...] time was 20 minutes. documented in this encounterMemorial Hospital04-13-2023 Miscellaneous Notes* Telephone Encounter - May Martinez Ma - 07/10/2022 8:47 AM EDT Forms re faxed to [facility]. documented in this encounterMemorial Hospital04-13-2023 Miscellaneous Notes* Telephone Encounter - Jaun [...] Ila Almanza LPN documented in this encounterCleveland [id number] Miscellaneous Notes* Telephone Encounter - Day Richardson Ma - 07/08/2022 4:51 PM EDT Form completed and faxed back to information below. Day Richardson Ma * Telephone Encounter - Day Richardson Ma - 07/07/2022 5:39 PM EDT Type of form: [employer] [facility] form for reimbursement coverage for CGM supplies ([employer]) Form received via fax When form is completed, Fax form to [phone] Form has been forwarded to Physician Desk: Dr. Sukumar Richardson Ma documented in this encounterMemorial Hospital04-07-2023 Miscellaneous Notes* Telephone Encounter - Cholo Thorpe RPh - 07/04/2022 3:50 PM EDT Patient received Fili 14 day sensors with last refill from [facility]. Would like to switch to Fili 2sensors. Called [facility] and spoke with hostess party sales representative while patient also on 3-way call. [facility] hostess party sales representative states that patient must mail back the Fili 14 day sensors in order to get Fili 2 sensors. Patient prefers to use up remaining Fili 14 day sensors and switch to Fili 2 sensors with next refill in August. [employer] states that when patient needs the Fili 2 sensors, he must call [facility] and not request refill online because they need to manually switch it to the Fili 2 sensors. Patient verbalizedunderstanding. [employer] will check records and ensure all Fili 2 orders are still active, if new orders areneeded, she will fax requested form. Cholo Thorpe, PharmD, BCACP Primary Care Clinical Pharmacist documented in this encounterMemorial Hospital04-07-2023 Miscellaneous Notes* Telephone Encounter - May [...] 07/04/2022 9:41 AM EDT Joana Ang with [facility] calls to give update on patient. [...] advise, Eleanor Nobles RN documented in this encounterMemorial Hospital04-06-2023 Miscellaneous Notes* Telephone Encounter - Day [...] LPN - 07/02/2022 11:02 AM EDT Mamie [facility] calling, they were planning to discharge patient this week however after assessing him today they are requesting an order to continue seeing him 1 time a week for 2 more weeks. Patientstill has complaiants of weakness, not sleeping, fot pain with 2+ edema, and on and off chest pain that is relieved with nitro. Please advise. documented in this encounterMemorial Hospital03-24-2023 NoteWooster [facility]03-24-2023 Miscellaneous Notes* Telephone Encounter - Trev Patino MD - 06/20/2022 4:17 PM EDT See other notes Trev Patino MD * Telephone Encounter - Jerilyn Manuel LPN - 04/28/2022 12:13 PM EST Pt calls to report that he gets humalog through patient assistance program with [facility]. Pt reports [facility] said they were going to send new application to pcp office for humalog. Pt is asking if office has received that yet and if it could be filled out. Please call pt on status of form/rx. Jerilyn Manuel LPN documented in this encounterMemorial Hospital03-24-2023 Miscellaneous Notes* Telephone Encounter - Trev [...] Thorpe RPh - 06/12/2022 1:12 PM EDT [facility] requesting page 5 for Humalog be resubmitted with new date and signature. Trulicity andBasaglar were already approved. Faxed page 5 to PCP office today at 1:08pm. Please sign and date form once received. Ok to fax back to [facility] at , once signed to help expedite order. Thanks! Cholo Thorpe RPh * Telephone Encounter - Cholo Thorpe RPh - 06/11/2022 4:46 PM EDT Called and spoke to hostess party sales representative at [facility]. She was able to confirm that fax from 05.22.22 was received, hostess party sales representative notes she is able to identify all information on the forms, is not sure why there is a delay. No communication was sent to office that there was a delay with this application. Asked to place me on hold while she escalated case for review to identify reason for delay. Placed on hold for 35 minutes. When hostess party sales representative wasback on the line, she reported that all information is on the form, but the date on the form is not clear as the background was highlighted which created a shadow on the fax. She asks that a new form be completed with all the same information, re-signed and dated again beforeit is refaxed. Forms were originally faxed to [facility] on 03/05/22, at that time Trulicity and [...] 4:08 PM EST Documentation was faxed to [facility] on 05.22.22. Attempted to reach [facility] with wait time greater than 1.5 hours. Unable to reach hostess party sales representative at [facility] today to clarify if they have received this fax. Patient notified via [employer]. I will try again on Thursday. Cholo Thorpe PharmD, BCACP Primary Care Clinical Pharmacist * Telephone Encounter - Tasha Chan RN - 06/06/2022 12:40 PM EST Patient asking this message be sent to casey Emmanuel. Reports he spoke to [facility] today, andthey informed him they need more information on the humalog- said the form was missing information but patient doesn't know what. Please advise patient. Copied and pasted previous message/date below: May 22, 2022 Cholo Thorpe RPh KD 5:13 PM Note Called [facility] to check on status of Humalog approval. They have approved patient for Basaglar and Trulicity but need Humalog page refaxed. Page 5 of humalog orders found in scanned documents of [employer] and refaxed to [facility]. Cholo Thorpe PharmD, SHANIA Primary Care Clinical Pharmacist documented in this encounterMemorial Hospital03-24-2023 History of Present illness Narrative* Trev [...] Perry, Cardiology and Dr. Ayala, Pulmonary with [facility]. Pt seen by Shereen Holt CNP on [...] 92%. He states a nurse from the [facility] came out to his house and suggested [...] Coronary atherosclerosis of unspecified type of vessel, hamilton or graft s/p [place] in 1985 Diverticulosis of colon (without mention [...] EGD ESOPHAGOGASTRODUODENOSCOPY TRANSORAL DIAGNOSTIC 02/16/2008 EGD inpt [facility] H-pylori negative ESOPHAGOGASTRODUODENOSCOPY TRANSORAL DIAGNOSTIC 05/24/2015 EGD ESOPHAGOGASTRODUODENOSCOPY TRANSORAL DIAGNOSTIC 12/21/2017 Dr. Anthony-repeat 3 years-11/2020 HEART CATHETERIZATION 12/15/2014 [facility] - see scanned documents HEART SURGERY HX 1 stent LEFT HEART CATH,PERCUTANEOUS Cardiac cath, L heart LEFT HEART CATH,PERCUTANEOUS 06/20/2011 Cardiac cath, L heart PAST SURGICAL HISTORY OF ICD/ pacemaker at [facility] PERC TRANSL COR ANGIO Percutaneous Transluminal Coronary [...] Please apply 1 time free voucher: RxBin: [id number] PCN: [id number] Group: [id number] ID:[id number] ondansetron orally disintegrating (ZOFRAN ODT) 4 mg disintegrating tablet Take 1 tablet by mouth every 6 hours as needed for nausea/vomiting. dulaglutide (TRULICITY) 3 mg/0.5 mL pen injector Inject 3 mg subcutaneously one time a week. flash glucose scanning reader (mSpot FILI 2 READER) Use to check blood [...] G47.33 327.23 - fax compliance download to [phone] isosorbide mononitrate ER (IMDUR) 30 mg 24 hr tablet Take 60 mg by mouth once daily. blood sugar diagnostic (abcdexperts BLOOD GLUCOSE SYSTEM) test strip Use as instructed to check blood sugar 3 to 4 times daily DM: yes Insulin: yes DX:11.[address] (PROTONIX) 40 mg tablet Take 40 mg by mouth once daily. Lancets (ONE TOUCH ULTRASOFT LANCETS) lancets Use with Via Glucometer as directed CRESTOR 40 MG TAB [...] Past Histories independently gathered by the clinical account support rep and the remaining scribed note accurately describes [...] PM. May Martinez Ma documented in this encounterMemorial Hospital03-23-2023 Miscellaneous Notes* Telephone Encounter - Cholo [...] 2:50 PM EDT Called and spoke with [employer] hostess party sales representative to check on status of Humalog forms that were refaxed last week. [employer] states that forms were received and patient was approved by [employer] for Humalog on 06/16/22. [facility]. Cholo Thorpe PharmD, BCACP Primary Care Clinical Pharmacist documented in this encounterMemorial Hospital03-23-2023 Evaluation note* Diagnosis Type 2 diabetes mellitus with stage 3a chronic kidney disease, with long-term current use of insulin (HCC) documented in this encounter [facility]03-17-2023 Miscellaneous Notes* Telephone Encounter - Trev Patino MD - 06/13/2022 2:49 PM EDT Noted Trev Patino MD * Telephone Encounter - Cindi Eastman LPN - 06/13/2022 11:49 AM EDT [place] with [facility] nursing calling with plan of care. They will see pt 1 tme a week for 4 weeks for disease prevention, education on medication. No call back needed. Cindi Eastman LPN documented in this encounterMemorial Hospital03-10-2023 Miscellaneous Notes* Telephone Encounter - Ariana [...] you. Shereen Holt APRN.RODRIGUEZ documented in this encounterMemorial Hospital03-08-2023 Miscellaneous Notes* Telephone Encounter - Kelsie Cerrato RPh - 06/04/2022 9:07 AM EST MyChart message sent for therapeutic INR. documented in this encounterMemorial Hospital03-03-2023 NoteWooster [facility]03-03-2023 NoteWooster [facility]03-03-2023 History of Present illness Narrative* Kalia Ambrocio RN - 05/30/2022 1:45 PM EST inSight CDM Escalation Follow Up Action/FYI: Contact made with patient: Left Message: My name is [facility]io RN[facility]. I am calling regarding your [...] name is Kalia Ambrocio RN[facility]. I am calling regarding your [...] name is Kalia Ambrocio RN[facility]. I am calling regarding your recent visit with our Virtual Provider. Sorry that I am not able to speak with you. If you have a problem that needs to addressed by your Physician, please contact your Primary Care Provider's office. - END OUTREACH documented in this encounterMemorial Hospital03-03-2023 NoteWooster Community Hospital03-02-2023 NoteW[facility]03-02-2023 NoteW[facility]03-02-2023 History of Present illness Narrative* Lula Monzon APRN.DAIRY CHEMIST - 05/29/2022 8:35 PM EST Virtualist Distance Health Note (CDM/TCM//CC HC/H@[facility] escalations) Lovely Mathew Shandra has consented to this telephone encounter. Persons Present: patient Triage source: Chronic Disease Management Contacted by phone, Greendizer, [employer], Zoom, Doximity, other: phone visit, patient consents [...] in as Primary Virtualist, Secondary Virtualist, or [facility] Telehealth provider: Primary SIGNATURE: Lula Monzon APRN.CNP PATIENT NAME: Lovely Devi DATE: May 29, 2022 documented in this encounterMemorial Hospital03-02-2023 NoteWooster [facility]03-02-2023 History of Present illness Narrative* Lacy Murillo [...] phone call. Pt prefers phone call at [phone]. Advised Virtualist, pt agrees to proceed and will be by phone. Message received via: InSight - Yes contact made with patient ACTION TAKEN: Based on curriculum and assessment director, the following disposition is advised: Urgent / [...] the patient.Route as 'high priority' to Virtualist delinquency prevention social worker - End outreach. * Lacy Murillo RN [...] in 1 week? No Message received via: PureSense - No contact made with patient Left Message for PatientBinta Merritt my name is Lacy [facility]illo RN [facility]. I am calling about your responses to our InSight Home Monitoring questionnaire. Sorry I am not able to speak with you. If you have a problem that needs to be addressed by your physician please contact your PCP office--End Outreach documented in this encounterMemorial Hospital03-02-2023 Miscellaneous Notes* Telephone Encounter - May Martinez Ma - 05/29/2022 9:51 AM EST Violetta notified and voiced understanding. May Martinez Ma * Telephone Encounter - Trev Patino MD - 05/29/2022 8:59 AM EST OK for a verbal order for alf services to extend for 1 wk 2 for CHF monitoring and education Trev Patino MD * Telephone Encounter - Eleanor Nobles RN - 05/28/2022 12:29 PM EST Violetta calls to request a verbal order for alf services to extend for 1 wk 2 for CHF monitoring and education. Please call Violetta at [phone] with verbal order if provider agrees. Please review and advise, Eleanro Nobles RN documented in this encounterMemorial Hospital02-27-2023 Miscellaneous Notes* Telephone Encounter - Day [...] - 05/26/2022 12:19 PM EST Joana with [facility] nursing went out to evaluate pt on Thursday05-23-22 and had to send pt to the ER. They are calling for verbal orders to go back out this week to evaluate pt for HH Please call Joanawith verbal orders and okay to leave a detailed message on phone. Cindi Eastman LPN documented in this encounterMemorial Hospital02-27-2023 Miscellaneous Notes* Telephone Encounter - Jaun [...] advise. Ronen Avery LPN documented in this encounterMemorial Hospital02-23-2023 Miscellaneous Notes* Telephone Encounter - Cholo Thorpe RPh - 05/22/2022 5:22 PM EST See encounters from 05/22/22 with patient and [facility] program. Cholo Thorpe PharmD, CHINACP Primary Care Clinical Pharmacist documented in this encounterMemorial Hospital02-23-2023 Miscellaneous Notes* Telephone Encounter - Cholo Thorpe RPh - 05/22/2022 5:10 PM EST Called [facility] to check on status of Humalog approval. They have approved patient for Basaglar and Trulicity but need Humalog page refaxed. Page 5 of humalog orders found in scanned documents of [facility] and refaxed to [facility]. Cholo Thorpe PharmD, BCACP Primary Care Clinical Pharmacist documented in this encounterMemorial Hospital02-23-2023 Miscellaneous Notes* Telephone Encounter - May [...] advise, Magy Gonzalez, RN documented in this encounterMemorial Hospital02-23-2023 Miscellaneous Notes* Telephone Encounter - Jaun [...] advise. Ila Almanza LPN documented in this encounterMemorial Hospital02-22-2023 Miscellaneous Notes* Telephone Encounter - Nerissa Soriano RP - 05/21/2022 2:15 PM EST [facility] Anticoagulation Episode Summary Anticoagulation Care Providers Provider Role Specialty Phone number Trev Patino MD Referring Family Medicine [phone] Lovely Devi is a 76 year old [...] Fri; 6 mg all other days Sent Inkomerce message Advised patient to continue current weekly dose as noted above Next home INR check scheduled on 06/04/2022 Patient verbalizes understanding of the plan. Patient denies need for refills. Nerissa Soriano RPh Clinical Pharmacist, Pharmacy Anticoagulation Clinic Pharmacy Anticoagulation Clinic Pager: [phone]. * Telephone Encounter - Varsha Moss RPh - 05/20/2022 11:14 AM EST Patient due to test INR today. Will continue to monitor for results. Varsha Moss RPh documented in this encounterMemorial Hospital02-15-2023 NoteWooster [facility]02-15-2023 History of Present illness Narrative* Kalia Ambrocio [...] let me know. Take care. Shereen Holt, SHANELLE.DAIRY CHEMIST Patient identified by name and date . [...] name is Kalia Ambrocio RN[facility]. I am calling regarding your recent visit with our Virtual Provider. Sorry that I am not able to speak with you. If you have a problem that needs to addressed by your Physician, please contact your Primary Care Provider's office. - END OUTREACH documented in this encounterMemorial Hospital02-15-2023 NoteWo[facility]02-14-2023 NoteW[facility]02-14-2023 Miscellaneous Notes * Telephone Encounter - Shereen [...] answered. Shereen Holt APRN.RODRIGUEZ documented in this encounterMemorial Hospital02-14-2023 Miscellaneous Notes* Telephone Encounter - Jaun Hinson APRN.CNP - 05/13/2022 9:50 AM EST Patient evaluated and treated in office yesterday 05/12/2022. Jaun Hinson APRN.RODRIGUEZ * Telephone Encounter - Magy Gonzalez RN - 05/12/2022 10:26 AM EST [place] from [facility] calls and states that patient has had [...] advise, Magy Gonzalez, RN documented in this encounterMemorial Hospital02-13-2023 NoteWooster [facility]02-13-2023 Instructions* Patient Instructions* Shereen Holt APRN.CNP - [...] may need stool sample. documented in this encounterMemorial Hospital02-13-2023 History of Present illness Narrative* Shereen [...] cardiology follow up in May, (Dr. Perry, [facility]). Last Echo: February 2022, Dr. Perry: Showed right atrium mildly enlarged and mild tricuspid insufficiency. Ejection fraction 55%. Office received call from [facility] today noting that pt's had a 4 [...] Coronary atherosclerosis of unspecified type of vessel, hamilton or graft s/p [place] in 1985 Diverticulosis of colon (without mention [...] DIAGNOSTIC EGD ESOPHAGOGASTRODUODENOSCOPY [facility] ESOPHAGOGASTRODUODENOSCOPY TRANSORAL DIAGNOSTIC 05/24/2015 EGD ESOPHAGOGASTRODUODENOSCOPY TRANSORAL DIAGNOSTIC 12/21/2017 Dr. Anthony-repeat 3 years-11/2020 HEART CATHETERIZATION 12/15/2014 [facility] - see scanned documents HEART SURGERY HX 1 stent LEFT HEART CATH,PERCUTANEOUS Cardiac cath, L heart LEFT HEART CATH,PERCUTANEOUS 06/20/2011 Cardiac cath, L heart PAST SURGICAL HISTORY OF ICD/ pacemaker at [facility] PERC TRANSL COR ANGIO Percutaneous Transluminal Coronary [...] Please apply 1 time free voucher: RxBin: [id number] PCN: [id number] Group: [id number] ID:[id number] ondansetron orally disintegrating (ZOFRAN ODT) 4 mg [...] time a week. flash glucose scanning reader (mSpot FILI 2 READER) Use to check blood [...] G47.33 327.23 - fax compliance download to [phone] isosorbide mononitrate ER (IMDUR) 30 mg 24 hr tablet Take 60 mg by mouth once daily. blood sugar diagnostic (abcdexperts BLOOD GLUCOSE SYSTEM) test strip Use as instructed to check blood sugar 3 to 4 times daily DM: yes Insulin: yes DX:11.[address] (PROTONIX) 40 mg tablet Take 40 mg by mouth once daily. Lancets (ONE TOUCH ULTRASOFT LANCETS) lancets Use with Riva Digital Mediauch Glucometer as directed CRESTOR 40 MG TAB [...] APRN.RODRIGUEZ This note was partially generated using [employer] voice recognition system. Note was reviewed for accuracy. There may be minor misspellings or grammar miscues with [employer] voice recognition. documented in this encounterMemorial Hospital02-13-2023 NoteWo[facility]02-13-2023 NoteW[facility]02-13-2023 NoteW[facility]02-13-2023 History of Present illness Narrative* Cece Crews [facility] Navigator - 05/12/2022 11:23 AM EST POPULATION HEALTH NAVIGATION OUTREACH Action/FYI I spoke to patient and scheduled PCP appointment for today. Patient Identified by Name and : YES, via phone Outreach Outcome/Action Spoke to patient / parent / legal guardian: Patient scheduled Did you use a PCP flex slot to schedule this appointment? No Reason for Outreach [facility] Payer: Payor: MEDICARE / Plan: MEDICARE A [...] due on 05/01/2022 Navigation Signature: Cece Crews [facility] Navigator May 12, 2022 11:23 AM * Kalia Ambrocio RN - 05/12/2022 10:26 AM EST INSIGHT CDM ESCALATION Provider Action/FYI: Please contact patient to evaluate 4# wt gain overnight, worsening sob Patient reports dry wt- 265# Yesterday wt 269 Today 273 Reports B/p fluctuates averaging 160/100 per pt. B/P taken this am by [facility] nurse 140/80. Reports pulse ox ranges [...] made with patient ACTION TAKEN: Based on curriculum and assessment director, the following disposition is advised: Urgent / SAME DAY visit: Page Virtualist at and indicate 'CDM patient', MRN, Patient Name, Patient Concern, and patient's preferred method of contact (telephone, Greendizer, [employer]), your name, your contact number. Informed patient [...] the patient.Route as 'high priority' to Virtualist delinquency prevention social worker - End outreach. documented in this encounterMemorial Hospital02-08-2023 Miscellaneous Notes* Telephone Encounter - Ila [...] you Shereen Holt APRN.CNP documented in this encounterMemorial Hospital02-07-2023 Miscellaneous Notes* Telephone Encounter - Jaun Hinson APRN.CNP - 05/06/2022 8:58 AM EST Noted, patient was at appointment yesterday at our facility. Jaun Hinson APRN.CNP * Telephone Encounter - Jerilyn Manuel LPN - 05/06/2022 8:29 AM EST Nadine with [facility] SW calls to report she went to pt's home yesterday for consult for SW and pt wasnot home. Pt rescheduled for 05/07. Nadine reports she needs a VO that is ok that she has a delay start of care. Call Nadine with dr's VO. Jerilyn Manuel LPN documented in this encounterMemorial Hospital02-06-2023 [facility]02-06-2023 Instructions* Patient Instructions* Shereen Holt APRN.CNP - 05/05/2022 2:36 PM EST Urine will be sent off for testing. Get labs completed Complete INR Thursday Stay well hydrated. Discuss with cardiology about colonoscopy, if they are okay may schedule with general surgery. Follow up pending test results May use coricidin as needed for cough. Continue with supportive care at home. documented in this encounterMemorial Hospital02-06-2023 History of Present illness Narrative* Shereen [...] 2.3. Refers he was just released from [facility] ER for facial swelling, blood was noted in stool. Recommend colonoscopy but PCP would like to wait to get cardiac and lung symptoms improved prior. Following withcardiology, [facility], refers he has an appointment [...] Coronary atherosclerosis of unspecified type of vessel, hamilton or graft s/p [place] in 1985 Diverticulosis of colon (without mention [...] EGD ESOPHAGOGASTRODUODENOSCOPY TRANSORAL DIAGNOSTIC 02/16/2008 EGD inpt [facility] H-pylori negative ESOPHAGOGASTRODUODENOSCOPY TRANSORAL DIAGNOSTIC 05/24/2015 EGD ESOPHAGOGASTRODUODENOSCOPY TRANSORAL DIAGNOSTIC 12/21/2017 Dr. Anthony-repeat 3 years-11/2020 HEART CATHETERIZATION 12/15/2014 [facility] - see scanned documents HEART SURGERY HX 1 stent LEFT HEART CATH,PERCUTANEOUS Cardiac cath, L heart LEFT HEART CATH,PERCUTANEOUS 06/20/2011 Cardiac cath, L heart PAST SURGICAL HISTORY OF ICD/ pacemaker at [facility] PERC TRANSL COR ANGIO Percutaneous Transluminal Coronary [...] Please apply 1 time free voucher: RxBin: [id number] PCN: [id number] Group: [id number] ID:[id number] ondansetron orally disintegrating (ZOFRAN ODT) 4 mg [...] time a week. flash glucose scanning reader (mSpot FILI 2 READER) Use to check blood [...] G47.33 327.23 - fax compliance download to [phone] isosorbide mononitrate ER (IMDUR) 30 mg 24 hr tablet Take 60 mg by mouth once daily. blood sugar diagnostic (abcdexperts BLOOD GLUCOSE SYSTEM) test strip Use as instructed to check blood sugar 3 to 4 times daily DM: yes Insulin: yes DX:11.[address] (PROTONIX) 40 mg tablet Take 40 mg by mouth once daily. Lancets (ONE TOUCH ULTRASOFT LANCETS) lancets Use with Riva Digital Mediauch Glucometer as directed CRESTOR 40 MG TAB [...] APRN.RODRIGUEZ This note was partially generated using [employer] voice recognition system. Note was reviewed for accuracy. There may be minor misspellings or grammar miscues with [employer] voice recognition. documented in this encounterMemorial Hospital02-06-2023 Miscellaneous Notes* Telephone Encounter - Tasha [...] Urine - Blood In-ADULT- documented in this encounterMemorial Hospital02-04-2023 Miscellaneous Notes* Telephone Encounter - Trev Patino MD - 05/03/2022 9:12 AM EST Noted Trev Patino MD * Telephone Encounter - Estrella Edwards RN - 05/02/2022 4:11 PM EST Violetta [facility] nurse calling to report to PCP that patient fell at home on evening of 05/01/22. Pt without injuries and did not hit his head. Pt reports dizziness with position changes and pt was educated on this by Violetta. No call back needed. Thank you. documented in this encounterMemorial Hospital02-03-2023 Miscellaneous Notes* Telephone Encounter - Magy [...] advise, Magy Gonzalez RN documented in this encounterMemorial Hospital01-31-2023 Miscellaneous Notes* Telephone Encounter - May [...] drawn? Nadira Murillo RN documented in this encounterMemorial Hospital01-30-2023 Miscellaneous Notes* Telephone Encounter - Jaun [...] advise. Ila Almanza LPN documented in this encounterMemorial Hospital01-27-2023 Miscellaneous Notes* Telephone Encounter - May Martinez Ma - 04/25/2022 4:23 PM EST Gayle notified and voiced understanding. May Martinez Ma * Telephone Encounter - Trev Patino MD - 04/25/2022 4:15 PM EST Fluoxetine and nortriptyline have both been stopped; med list updated Trev Patino MD * Telephone Encounter - Cristina Chau RN - 04/25/2022 3:21 PM EST Gayle [facility] called in and was asking for an [...] you name and title. documented in this encounterMemorial Hospital01-27-2023 Miscellaneous Notes* Telephone Encounter - Tasha Chan RN - 04/25/2022 4:16 PM EST Gayle- [facility]- reports she had visit with patient today requesting zofran refill for patient. Advised patient has 2 refills on zofran at [facility]. Gayle reports called them today and [...] try calling patient again. documented in this encounterMemorial Hospital01-26-2023 Miscellaneous Notes* Telephone Encounter - May [...] also needs a face sheet faxed to [phone]. Cindi Eastman LPN documented in this encounterMemorial Hospital01-24-2023 Miscellaneous Notes* Telephone Encounter - May [...] you. Cristina Chau RN documented in this encounterMemorial Hospital01-24-2023 [facility] Inst[facility]* Patient Instructions* May Martinez Ma - 04/22/2022 2:43 PM EST May stop the Fluoxetine and Nortriptyline. If you feel like you need these or start having pain andfeeling anxious or depressed we can always restart them. Follow up with Dr. Ayala-Pulmonary Follow up with Cardiology documented in this encounterMemorial Hospital01-24-2023 History of Present illness Narrative* Trev [...] HPI 7 day TCM Pt admitted to [facility] on 03/16/22 for SOB CHF and COPD exacerbation, was moved to Acute Care and then discharged home on 04/18/22 with SN, PT, and OT through [facility]. He can't walk far due to SOB and strength which he thinks is getting better. He has little energy, breathing is not doing to well, he is going to be picking up a nebulizer to start using. He is scheduled to see Dr. [address] Commissioner and Pulm Dr. Ayala. He states that [...] FALLS Prevention Safety Plan Below copied from [facility]: HPI History of Present Illness Chief Complaint: [...] home with . Discharge home with 04/18/2022, [facility] PT/OT/SN. PHYSICAL EXAMINATION [...] Past Histories independently gathered by the clinical account support rep and the remaining scribed note accurately describes my personal service to the patient. Trev Patino MD The documentation for this note was completed by May Martinez Ma acting as scribe for Trev Patino MD. April 22, 2022 2:36 PM. May Martinez Ma documented in this encounterMemorial Hospital01-24-2023 Miscellaneous Notes* Telephone Encounter - Chencho Helms (Compliance Quality Performance Analyst) - 04/22/2022 1:51 PM EST PATIENT CALL Nish called call center regarding results Result has been addressed below. Chencho Helms (Compliance Quality Performance Analyst) * Telephone Encounter - Varsha Moss [facility] - 04/22/2022 12:37 PM EST [facility] Anticoagulation Episode Summary Anticoagulation Care Providers Provider Role Specialty Phone number Trev Patino MD Referring Family Medicine [phone] Lovely Devi is a 76 year old [...] 1.7 is subtherapeutic. Patient was in the [facility] from 03/16-04/18. No new meds. Plan: Current [...] verbalizes understanding of the plan. Varsha Moss [facility] Clinical Pharmacist, Pharmacy Anticoagulation Clinic Pharmacy Anticoagulation Clinic Pager: [phone]. documented in this encounterMemorial Hospital01-24-2023 Miscellaneous Notes* Telephone Encounter - Trev Patino MD - 04/22/2022 10:22 AM EST Noted; he has appt with me this PM Trev Patino MD * Telephone Encounter - Jerilyn Manuel LPN - 04/22/2022 9:45 AM EST Argelia with [facility] HH OT calls to report that she saw pt today. Argelia reports they worked on energy conservation teaching [...] was 97-99. When pt was up walking [id number] feet which was 1-2 minutes pt's PO dropped to 90 then 87. Argelia wanted to let pcp know and is also call pt's clinical specialty rep. Jerilyn Manuel LPN documented in this encounterMemorial Hospital01-23-2023 Miscellaneous Notes* Telephone Encounter - Trev Patino MD - 04/21/2022 5:18 PM EST Noted and agree Trev Patino MD * Telephone Encounter - Cindi Eastman LPN - 04/21/2022 4:09 PM EST Shereen with [facility], PT calling with plan of care. Will see pt 2 times a week for 4 weeks for lower extremities strengthening, transfer and gait training and balance. No call back needed. Cindi Eastman LPN documented in this encounterMemorial Hospital01-19-2023 Miscellaneous Notes* Telephone Encounter - May [...] HH calling to state they have received [facility] orders for pt for alf, PT and OT. Asking if PCP will follow and sign for orders? Pt is discharging from [facility] on 04/18/22 and start of care will be 04/19/22 for pt. Please call Taniya back with verbal order, . Thank you. documented in this encounterMemorial Hospital12-23-2022 Miscellaneous Notes* Telephone Encounter - Moraima Alvarenga, [facility] - 03/21/2022 9:52 AM EST [facility] Anticoagulation Episode Summary Anticoagulation Care Providers Provider Role Specialty Phone number Trev Patino MD Referring Family Medicine [phone] Lovely Devi is a 76 year old [...] speak to patient Patient currently admitted to [facility] Plan: Current Warfarin Dosing As of [...] Pharmacy Anticoagulation Clinic Pharmacy Anticoagulation Clinic Pager: [phone]. * Telephone Encounter - Chencho Helms (Compliance Quality Performance Analyst) - 03/21/2022 8:50 AM EST PATIENT CALL [employer] called call center regarding results PT INR (no units) Date Value 07/03/2021 2.7 (biotel) 06/19/2021 2.6 (biotel) 06/05/2021 3.3 (biotel) INR Home CoaguChek (no units) Date Value 03/20/2022 1.7 03/05/2022 2.5 02/12/2022 2.6 Patient can be reached at [phone] Chencho Helms (Compliance Quality Performance Analyst) * Telephone Encounter - Kelsie Cerrato RPh - 03/19/2022 9:55 AM EST Patient was due to test INR today will continue to monitor for results. Kelsie Cerrato PharmD Pharmacy Anticoagulation Clinic documented in this encounterMemorial Hospital12-21-2022 Evaluation note* Diagnosis Type 2 diabetes mellitus with diabetic neuropathy, with long-term current use of insulin (HCC) Type 2 diabetes mellitus with stage 3a chronic kidney disease, with long-term current use of insulin (HCC) documented in this encounter [facility]12-20-2022 Miscellaneous Notes* Telephone Encounter - Day Richardson Ma - 03/18/2022 9:36 AM EST Rx has been faxed to [facility] at [phone]. Day Richardson Ma * Telephone Encounter - Trev Patino MD - 03/17/2022 5:56 PM EST Rx printed Trev Patino MD * Telephone Encounter - May Martinez Ma - 03/17/2022 1:37 PM EST Office received fax from [place] with [employer] pt assistance program stating that they needa new rx for Basaglar U100 kwik pens faxed to [phone] or e-scribe to [facility] [place], [place]. [facility] is already listed as pharmacy in pt chart. May Martinez Ma documented in this encounterMemorial Hospital12-20-2022 Evaluation note* Diagnosis Type 2 diabetes mellitus with stage 3a chronic kidney disease, with long-term current use of insulin (HCC) documented in this encounter [facility]12[facility] History of Present illness Narrative* Becky Mccarthy APRN.DAIRY CHEMIST - 03/16/2022 2:17 PM EST 76 year [...] to ED Declines EMS. documented in this encounterMemorial Hospital12-14-2022 History of Present illness Narrative* Cholo Thorpe, [facility] - 03/12/2022 10:30 AM EST Primary Care Pharmacy Visit CC (Reason for Consult): DM Goal: A<7% Last Collaborating Physician/GRAILS WEB APPLICATION DEVELOPER Visit: 03/08/22 Lovely Devi is a 76 [...] effects MEDICATIONS: Adherence: denies missed doses. 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 Esophageal Reflux Benign Neoplasm of Colon Dermatophytosis of Nail Paroxysmal Atrial Fibrillation (Hcc) Anticoagulated On Coumadin Class 3 Severe Obesity With Serious Comorbidity and Body Mass Index (Bmi) of 40.0 to 44.9 in Adult ([facility]) Stasis Dermatitis of Both Legs Foot Callus Hyperlipidemia Ldl Goal <100 Ashd (Arteriosclerotic Heart Disease) Neurocardiogenic Syncope 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 With Stage 3a Chronic Kidney Disease, With Long-Term Current Use of Insulin ([facility]) Facet Arthritis of Lumbar Region Adenopathy Atrial Flutter ([facility]) Balanitis Coronary Angioplasty Status History of Deep Venous Thrombosis History of Non-St Elevation Myocardial Infarction ([facility]) Ischemic Cardiomyopathy Jessica (Obstructive Sleep Apnea) Restless Leg Syndrome Chronic Combined Systolic and Diastolic Congestive Heart Failure ([facility]) Type 2 Diabetes Mellitus With Diabetic Neuropathy, With Long-Term Current Use of Insulin ([facility]) 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) 07/03/2011 Automatic implantable cardiac defibrillator in situ Petit's esophagus with esophagitis 03/01/2015 Benign neoplasm of colon Chronic diarrhea 09/16/2011 Coronary atherosclerosis of unspecified type of vessel, hamilton or graft s/p [place] in 1985 Diverticulosis of colon (without mention of hemorrhage) Duodenitis without mention of hemorrhage Dysphagia 03/01/2015 Facet arthritis of lumbar region 07/14/2017 GERD (gastroesophageal reflux disease) 06/10/12 Heart attack (HCC) Labyrinthitis 02/05/2010 Neurocardiogenic syncope 03/01/2015 Obesity 09/16/2011 JESSICA treated with [facility] Other and unspecified hyperlipidemia Other specified forms of chronic ischemic heart disease Paroxysmal ventricular tachycardia Snoring Stroke ([facility]) Tinea of nail 01/13/2011 Type 2 diabetes mellitus with stage 3 chronic kidney disease, with long-term current use of insulin([facility]) 06/15/2017 Unspecified essential hypertension ALLERGIES Allergen [...] Please apply 1 time free voucher: RxBin: [id number] PCN: [id number] Group: [id number] ID:[id number] insulin glargine (BASAGLAR KWIKPEN U-100 INSULIN) 100 [...] as instructed every 4 hours while awake. Ashou-5-AHZ-EPA-Fish Oil (FISH OIL) 1,000 mg (120 mg-180 [...] humidity and lifetime supplies. Dx. JESSICA G47.33 327.41 - fax compliance download to [phone] flash glucose sensor (FREESTYLE FILI 14 DAY SENSOR) kit 1 Each four times daily. spironolactone (ALDACTONE) 25 mg tablet Take 1 tablet by mouth once daily. isosorbide mononitrate ER (IMDUR) 30 mg 24 hr tablet Take 60 mg by mouth once daily. blood sugar diagnostic (abcdexperts BLOOD GLUCOSE SYSTEM) test strip Use as [...] neuropathy, with long-term current use of insulin ([facility]) -ICD9: 250.60, 357.2, V58.67, ICD10: E11.40, [...] time was 22 minutes. documented in this encounterMemorial Hospital12-10-2022 History of Present illness Narrative* Trev [...] Coronary atherosclerosis of unspecified type of vessel, hamilton or graft s/p [place] in 1985 Diverticulosis of colon (without mention [...] DIAGNOSTIC EGD ESOPHAGOGASTRODUODENOSCOPY [facility]AL [facility] ESOPHAGOGASTRODUODENOSCOPY TRANSORAL DIAGNOSTIC 05/24/2015 EGD ESOPHAGOGASTRODUODENOSCOPY TRANSORAL DIAGNOSTIC 12/21/2017 Dr. Anthony-repeat 3 years-11/2020 HEART CATHETERIZATION 12/15/2014 [facility] - see scanned documents HEART SURGERY HX 1 stent LEFT HEART CATH,PERCUTANEOUS Cardiac cath, L heart LEFT HEART CATH,PERCUTANEOUS 06/20/2011 Cardiac cath, L heart PAST SURGICAL HISTORY OF ICD/ pacemaker at [facility] PERC TRANSL COR ANGIO Percutaneous Transluminal Coronary [...] Please apply 1 time free voucher: Dia: [id number] PCN: [id number] Group: [id number] ID:[id number] insulin glargine (BASAGLAR KWIKPEN U-100 INSULIN) 100 [...] Take 2 tablets by mouth twice daily. Zvlcw-4-LVE-EPA-Fish Oil (FISH OIL) 1,000 mg (120 mg-180 [...] G47.33 327.23 - fax compliance download to [phone] flash glucose sensor (FREESTYLE FILI 14 DAY SENSOR) kit 1 Each four times daily. spironolactone (ALDACTONE) 25 mg tablet Take 1 tablet by mouth once daily. isosorbide mononitrate ER (IMDUR) 30 mg 24 hr tablet Take 60 mg by mouth once daily. blood sugar diagnostic (abcdexperts BLOOD GLUCOSE SYSTEM) test strip Use as instructed to check blood sugar 3 to 4 times daily DM: yes Insulin: yes DX:11.9 fenofibrate nanocrystallized (TRICOR) 145 mg tablet Take 1 tablet by mouth once daily. pantoprazole DR (PROTONIX) 40 mg tablet Take 40 mg by mouth once daily. Lancets (ONE TOUCH ULTRASOFT LANCETS) lancets Use with OneEndoGastric Solutionsuch Glucometer as directed Aspirin 81 mg ORAL [...] Past Histories independently gathered by the clinical account support rep and the remaining scribed note accurately describes [...] AM. May Juan Landa documented in this encounterMemorial Hospital12-09-2022 History of Present illness Narrative* Kalia Ambrocio RN - 03/07/2022 10:38 AM EST PRIMARY CARE COORDINATION QUICK NOTE Provider Action/FYI Patient seen at [facility] on 03/05. Sent by [place]. Patient reports he was seen at [facility] for intermittent cp over past 2 [...] appointment? No Reason for Outreach Community Monitoring [place] Payer: Payor: MEDICARE / Plan: MEDICARE A [...] no better than when he presented to [facility]. Please attempt to get patient scheduled today to urgent visit if possible Patient identified by name and date . * Kalia Ambrocio RN - 03/06/2022 4:43 PM EST Nadia CDM Escalation Follow Up Action/FYI: Patient reports he was seen at [facility] for intermittent cp over past 2 [...] name is Kalia Ambrocio RN[facility]. I am calling regarding your recent visit with our Virtual Provider. Sorry that I am not able to speak with you. If you have a problem that needs to addressed by your Physician, please contact your Primary Care Provider's office. - END OUTREACH documented in this encounterMemorial Hospital12-08-2022 Miscellaneous Notes* Telephone Encounter - Cholo Thorpe RPh - 03/06/2022 12:15 PM EST Patient presents to [facility], would like to have labs drawn to recheck A1c. Current orders are ordered for July 2022, added orders to be drawn today. Cholo Thorpe, PharmD, BCACP Primary Care Clinical Pharmacist documented in this encounterMemorial Hospital12-07-2022 History of Present illness Narrative* Lula Monzon APRN.CNP - 03/05/2022 6:44 PM EST Virtualist Distance Health Note (Community monitoring/CC HC/H@[facility] escalations) Adult seen for Monitoring Track: Chronic Disease Management Contacted by phone, [employer], [employer], Zoom, [employer], other: Patient consents to phone [...] in as Primary Virtualist, Secondary Virtualist, or [facility] Telehealth provider: Primary Lovely Mathew Ruyjenny has consented to this telephone encounter. Persons Present: patient SIGNATURE: Lula Monzon APRN.CNP PATIENT NAME: Lovely Devi DATE: March 05, 2022 documented in this encounterMemorial Hospital12-07-2022 History of Present illness Narrative* Becki Pereira RN - 03/05/2022 6:18 PM EST INSIGHT [...] made with patient ACTION TAKEN: Based on curriculum and assessment director, the following disposition is advised: Urgent / [place]: [place] [id number] and indicate 'CDM patient', MRN, Patient Name, Patient Concern, and patient's preferred method of contact (telephone, [employer]izer, [employer]), your name, your contact number. Informed patient [...] the patient.Route as 'high priority' to Virtualist delinquency prevention social worker - End outreach. documented in this encounterMemorial Hospital12-07-2022 Miscellaneous Notes* Telephone Encounter - Trev [...] team for PCP signature and faxing to [facility] program. Cholo Thorpe PharmD, BCACP Primary Care Clinical Pharmacist documented in this encounterMemorial Hospital12-07-2022 Miscellaneous Notes* Telephone Encounter - Kelsie Cerrato RPh - 03/05/2022 2:22 PM EST Lovely Mathew Ruyjenny was sent a MyC msg and reminded to test INR today or as soon as possible. Kelsie Cerrato PharmD Pharmacy Anticoagulation Clinic * Telephone Encounter - Kelsie Cerrato RPh - 02/26/2022 3:47 PM EST Patient was due to test INR today will continue to monitor for results. Kelsie Cerrato PharmD Pharmacy Anticoagulation Clinic documented in this encounterMemorial Hospital11-16-2022 Miscellaneous Notes* Telephone Encounter - Cindi Eastman LPN - 02/12/2022 2:13 PM EST Emiliana with [employer] called and states they received form for pt put the H & P was not signed. Pt was identified with name and date of . Reprinted and faxed the electronically signed copy of the H & P from 12/12/21. Faxed to [phone]. Done. Cindi Eastman LPN documented in this encounterMemorial Hospital11-16-2022 Miscellaneous Notes* Telephone Encounter - Kelsie Cerrato RPh - 02/12/2022 1:41 PM EST [employer] message sent for therapeutic INR. documented in this encounterMemorial Hospital11-16-2022 Miscellaneous Notes* Telephone Encounter - Day [...] fax to the Pharmacy Anticoagulation Clinic at [phone] Trev Patino MD * Telephone Encounter - [...] back to the Pharmacy Anticoagulation Clinic at [phone]. If you have any questions about the home INR program, also known as the Pharmacist Managed Telemanagement Anticoagulation (PAC) service, please contact a member of our pharmacy team at [phone] Option #2. Thank you, Meaghan Watson RN Pharmacy Anticoagulation Clinic documented in this encounterMemorial Hospital11-11-2022 Miscellaneous Notes* Telephone Encounter - Vera [...] PM EST Hi Deanne Reardonry Quincy Devi [id number] was originally referred to the Pharmacy Anticoagulation Clinic by Dr. Keyes. As the patient's current PCP would you agree to serve as referring physician for our ongoing anticoagulation follow up? If yes please place a new referral to Anticoagulation/Coumadin Clinic Pharm (order #[id number].) Thank you, Varsha Moss RPh documented in this encounterMemorial Hospital11-07-2022 Miscellaneous Notes* Telephone Encounter - May Martinez Ma - 02/03/2022 1:35 PM EST Faxed. May Martinez Ma * Telephone Encounter - May Martinez Ma - 01/30/2022 3:57 PM EDT Patient has been identified by name and date of : Yes Type of form: diabetes supply form Form received via: Fax When form is completed, fax form to fax number provided. FAX TO [employer] [phone] Form has been forwarded to: Provider's desk. Provider name: Sukumar Martinez Ma documented in this encounterMemorial Hospital11-03-2022 Miscellaneous Notes* Telephone Encounter - Cholo Thorpe RPh - 01/30/2022 5:13 PM EDT Returned call to patient. Discussed renewal process for [facility] before 03/29/22. Will coordinate to mail forms to patient for renewal. Lisa HancockD, BCACP Primary Care Clinical Pharmacist * Telephone Encounter - Nadira Murillo RN - 01/29/2022 2:50 PM EDT Patient calling to ask about annual [facility] forms for Insulin. Nadira Murillo RN documented in this encounterMemorial Hospital11-02-2022 History of Present illness Narrative* Trev [...] gets his Basaglar, humalog and trulicity through [employer]. He has a [employer] he uses. HTN: Does check BP [...] doing well on it. [facility] Neuropathy: Taking Gabapentin 300 mg 3 pills [...] Coronary atherosclerosis of unspecified type of vessel, hamilton or graft s/p [place] in 1985 Diverticulosis of colon (without mention [...] EGD ESOPHAGOGASTRODUODENOSCOPY TRANSORAL DIAGNOSTIC 02/16/2008 EGD inpt [facility] H-pylori negative ESOPHAGOGASTRODUODENOSCOPY TRANSORAL DIAGNOSTIC 05/24/2015 EGD ESOPHAGOGASTRODUODENOSCOPY TRANSORAL DIAGNOSTIC 12/21/2017 Dr. Anthony-repeat 3 years-11/2020 HEART CATHETERIZATION 12/15/2014 [facility] - see scanned documents HEART SURGERY HX 1 stent LEFT HEART CATH,PERCUTANEOUS Cardiac cath, L heart LEFT HEART CATH,PERCUTANEOUS 06/20/2011 Cardiac cath, L heart PAST SURGICAL HISTORY OF ICD/ pacemaker at [facility] PERC TRANSL COR ANGIO Percutaneous Transluminal Coronary [...] Please apply 1 time free voucher: RxBin: [id number] PCN: [id number] Group: [id number] ID:[id number] insulin glargine (BASAGLAR KWIKPEN U-100 INSULIN) 100 [...] Take 2 tablets by mouth twice daily. Sklco-2-BWM-EPA-Fish Oil (FISH OIL) 1,000 mg (120 mg-180 [...] G47.33 327.23 - fax compliance download to [phone] flash glucose sensor (FREESTYLE FILI 14 DAY SENSOR) kit 1 Each four times daily. spironolactone (ALDACTONE) 25 mg tablet Take 1 tablet by mouth once daily. isosorbide mononitrate ER (IMDUR) 30 mg 24 hr tablet Take 60 mg by mouth once daily. blood sugar diagnostic (abcdexperts BLOOD GLUCOSE SYSTEM) test strip Use as instructed to check blood sugar 3 to 4 times daily DM: yes Insulin: yes DX:11.9 fenofibrate nanocrystallized (TRICOR) 145 mg tablet Take 1 tablet by mouth once daily. pantoprazole DR (PROTONIX) 40 mg tablet Take 40 mg by mouth once daily. Lancets (ONE TOUCH ULTRASOFT LANCETS) lancets Use with OneEndoGastric Solutionsuch Glucometer as directed Aspirin 81 mg ORAL [...] Past Histories independently gathered by the clinical account support rep and the remaining scribed note accurately describes [...] PM. May Martinez Ma documented in this encounterMemorial Hospital11-02-2022 Miscellaneous Notes* Telephone Encounter - Kelsie Cerrato RPh - 01/29/2022 11:12 AM EDT [employer] message sent for therapeutic INR. documented in this encounterMemorial Hospital10-28-2022 Miscellaneous Notes* Telephone Encounter - Ila Almanza LPN - 01/24/2022 11:47 AM EDT Refaxed with date completed. Ila Almanza LPN * Telephone Encounter - Cindi Eastman LPN - 01/24/2022 11:36 AM EDT Emiliana with [employer] called and states they got the order for a power wheelchair with accessories but it was not dated. Please date this and fax back. Patient has been identified by name and date of : Yes Type of form: order for power wheelchair with accessories Form received via: Fax When form is completed, fax form to fax number provided.[phone] Form has been forwarded to: Nurse Cindi Eastman LPN documented in this encounterMemorial Hospital10-27-2022 Miscellaneous Notes* Telephone Encounter - Day Richardson Ma - 01/23/2022 11:28 AM EDT Noted, pt + for Covlillian on 01/22/22. Will watch for [facility] to drop off CGM. Day Richardson Ma [...] Thanks! Cholo Thorpe RPh documented in this encounterMemorial Hospital10-27-2022 Miscellaneous Notes* Telephone Encounter - Violetta Sandhu Miguel Angel, [facility] - 01/23/2022 9:29 AM EDT [facility] Anticoagulation [...] Patient denies need for refills. Violetta Michelle [facility] Clinical Pharmacist, Pharmacy Anticoagulation Clinic Pharmacy Anticoagulation Clinic Pager: [phone]. * Telephone Encounter - Kelsie Cerrato RPh - 01/22/2022 11:32 AM EDT Patient was due to test INR today will continue to monitor for results. Of note - he is recently covid-19 positive and is set to receive monoclonal antibody treatment on 01/24. Kelsie Cerrato PharmD Pharmacy Anticoagulation Clinic documented in this encounterMemorial Hospital10-25-2022 Instructions* Patient Instructions* Becky Mccarthy APRN.DAIRY CHEMIST - 01/21/2022 2:06 PM EDT Fact Sheet for Patients, Parents, and Caregivers Emergency Use Authorization (EUA) of Bebtelovimab for Coronavirus Disease 2019 (COVID-19) You are being given this Fact Sheet because your healthcare provider believes it is necessary to provide you or your child with bebtelovimab for the treatment of enqa-um-tfcfeyzj coronavirus disease 2019 (COVID-19) in adults and [...] investigational medicine used for the treatment of vdbx-bo-dnymluqu coronavirus disease 2019 (COVID-19) in adults and [...] effectiveness of using bebtelovimab for thetreatment of dkrr-iq-rsycfojb COVID-19. For more information on EUA, see [...] therapy and/or respiratory support due to underlying eho-NSZGH-26 related comorbidity. What should I tell my healthcare provider before I or my child receive bebtelovimab? Tell your healthcare provider about all your or your child s medical conditions including if you oryour child: Have any allergies Are or plan to become Are or plan to breastfeed Have any serious illnesses Are taking any medicines (prescription, and dnaw-kku-hqsrwuj, vitamins, or herbal products) How will I [...] to treat people with COVID-19. Go to https://www.fda.gov/pfapuiqms-ourqjpbccqlw-ibq-response/ghf-dzlpb-ppjladumic-and -policy-framework/ykgeltjxz-kqk-jsdakqvvveidb for information on the emergency use of [...] to FDA MedWatch at www.fda.gov/medwatch, or call 7-513-ZTD-7234 or to [employer] as shown below. Email Fax Number Telephone Number [email or web address] [phone] ( ) How can I learn more about COVID-19? Ask your healthcare provider Visit https://www.cdc.gov/COVID19 Contact your local or state public health department What is an Emergency Use Authorization? The [place] FDA has made bebtelovimab available under an emergency access mechanism called anEmergency Use Authorization (EUA). The EUA is supported by a [place] of Health and Human Service (HHS) declaration that circumstances exist to justify the emergency use of drugs and biological products during the COVID- 19 pandemic. Bebtelovimab for the treatment of hxuj-yh-xrmcrehy COVID-19 in adults and children (12 years [...] telephone number provided below. Website Telephone Number www.Socializr/bebtelovimab 8-013-MjbciV31 ( ) Literature issued May 10, 2021 [employer], [place] [address], [place] Copyright 2021, [employer]. All rights reserved. 4.7-QIP-3493-EUA [facility]-[id number] documented in this encounterMemorial Hospital10-25-2022 History of Present illness Narrative* Becky Mccarthy APRN.DAIRY CHEMIST - 01/21/2022 1:49 PM EDT This note [...] history is provided by the patient. No specialized language instructor was used. Cough This is a new [...] Coronary atherosclerosis of unspecified type of vessel, hamilton or graft s/p [place] in 1985 Diverticulosis of colon (without mention [...] EGD ESOPHAGOGASTRODUODENOSCOPY TRANSORAL DIAGNOSTIC 02/16/2008 EGD inpt [facility] H-pylori negative ESOPHAGOGASTRODUODENOSCOPY TRANSORAL DIAGNOSTIC 05/24/2015 EGD ESOPHAGOGASTRODUODENOSCOPY TRANSORAL DIAGNOSTIC 12/21/2017 Dr. Anthony-repeat 3 years-11/2020 HEART CATHETERIZATION 12/15/2014 [facility] - see scanned documents HEART SURGERY HX 1 stent LEFT HEART CATH,PERCUTANEOUS Cardiac cath, L heart LEFT HEART CATH,PERCUTANEOUS 06/20/2011 Cardiac cath, L heart PAST SURGICAL HISTORY OF ICD/ pacemaker at [facility] PERC TRANSL COR ANGIO Percutaneous Transluminal Coronary Angio Status REMV CATARACT EXTRACAP,INSERT LENS Bilateral 2020 Right corrected in 2020 and left 2018. ALLERGIES Morphine and Rocephin [Ceftriaxone Sodium] MEDICATIONS dapagliflozin (FARXIGA) 5 mg tablet^Take 1 tablet by mouth daily with breakfast. Please apply 1 time free voucher: RxBin: [id number] PCN: [id number] Group: [id number] ID:[id number]^Disp: 30 tablet^Rfl: 0 insulin glargine (BASAGLAR KWIKPEN [...] G47.33 327.23 - fax compliance download to [phone]^Disp: 1 Device^Rfl: 0 flash glucose sensor (FREESTYLE FILI 14 DAY SENSOR) kit^1 Each four times daily.^Disp: 1 Kit^Rfl: 11 spironolactone (ALDACTONE) 25 mg tablet^Take 1 tablet by mouth once daily.^Disp: ^Rfl: isosorbide mononitrate ER (IMDUR) 30 mg 24 hr tablet^Take 60 mg by mouth once daily. ^Disp: ^Rfl: 0 blood sugar diagnostic (abcdexperts BLOOD GLUCOSE SYSTEM) test strip^Use as instructed to check blood sugar 3 to 4 times daily DM: yes Insulin: yes DX:11.9^Disp: 400 Strip^Rfl: 3 fenofibrate nanocrystallized (TRICOR) 145 mg tablet^Take 1 tablet by mouth once daily.^Disp: ^Rfl: [address] (PROTONIX) 40 mg tablet^Take 40 mg by mouth once daily.^Disp: ^Rfl: Lancets (ONE TOUCH ULTRASOFT LANCETS) lancets^Use with Via Glucometer as directed^Disp: 100 Each^Rfl: 3 Aspirin [...] 2 tablets by mouth twice daily.^Disp: ^Rfl: Gxssy-4-XJX-EPA-Fish Oil (FISH OIL) 1,000 mg (120 mg-180 [...] out and discuss with patient Discussed current [facility] Supportive measures - COVID WITH FLUA+B, ROUTINE - XR CHEST 2V FRONTAL/LAT - INTERMITTENT PERIPHERAL DEVICE ([place]) - SODIUM CHLORIDE 0.9 % INJECTION SOLUTION [...] (87.5 MG/ML) INTRAVENOUS SOLUTION (EUA) Becky Mccarthy APRN.DAIRY CHEMIST Bebtelovimab Eligibility and Patient Discussion [facility] Formulary Restriction Criteria: Adult outpatients [...] to proceeding with Bebtelovimab treatment. Becky Mccarthy APRN.DAIRY CHEMIST January 21, 2022 2:43 PM COVID-19 Monoclonal Antibody Pharmacist Review Pharmacist has reviewed and verified eligibility for bebtelovimab infusion based on [facility] formulary restriction criteria. Date of Symptom Onset: 01-21-2022 Date of Positive Test: 01-21-2022 Criteria Met: YES (>65, diabetes) The patient's preferred site of infusion location is [facility] [x] Consult order for 'COVID TREATMENT REFERRAL' has been released Jose Peres RPh documented in this encounterMemorial Hospital10-18-2022 Miscellaneous Notes* Telephone Encounter - May Martinez Ma - 01/14/2022 8:59 AM EDT Forms completed and faxed to [place]. May Martinez Ma * Telephone Encounter - Day Richardson Ma - 01/13/2022 12:42 PM EDT Office received pt assistance medication application forms from [place]. Please review form for Farxiga 10 mg #90 for 1 year. Please complete PCP portion. Pt signed PCP portion, please review and sign. Once complete fax to [phone]. Day Richardson Ma documented in this encounterMemorial Hospital09-29-2022 Miscellaneous Notes* Telephone Encounter - Susan Villegas [facility] - 12/26/2021 1:24 PM EDT [facility] Anticoagulation [...] Pharmacy Anticoagulation Clinic Pharmacy Anticoagulation Clinic Pager: [phone]. * Telephone Encounter - Susan Villegas RPh [...] PharmD * Telephone Encounter - Cristina Escobar (Compliance Quality Performance Analyst) - 12/26/2021 11:52 AM EDT PATIENT CALL Patient called call center regarding new medication. Patient called and stated that he started a new medication: Disp Refills Start End dapagliflozin (FARXIGA) 5 mg tablet 30 tablet 0 12/23/2021 Sig: Take 1 tablet by mouth daily with breakfast. Please apply 1 time free voucher: RxBin: [id number] PCN: [id number] Group: [id number] ID:[id number] Patient stated that he took his first dose on Saturday 12/23. He also stated he's been experiencing nosebleeds lately. Next INR result expected 01/01 via home meter. Patient can be reached at [phone] to discuss. PT INR (no units) Date Value 07/03/2021 2.7 (biotel) 06/19/2021 2.6 (biotel) 06/05/2021 3.3 (biotel) INR Home CoaguChek (no units) Date Value 12/18/2021 1.9 12/04/2021 2.3 11/20/2021 2.3 Cristina Escobar (Compliance Quality Performance Analyst) documented in this encounterMemorial Hospital09-28-2022 Miscellaneous Notes* Telephone Encounter - Cholo Thorpe RPh - 12/25/2021 5:01 PM EDT Called and spoke with pharmacist at [facility]. She noted that voucher information was in the sig but was not billed. She will correct this and refund the patient. [facility] pharmacy will call patient to arrange refund. [...] 12/24/2021 2:07 PM EDT Pt states his carry out clerk and shelf stocker Dr Perry would like pt to take 10mg of farxiga instead of 5mg. Pt askingKeti if this will mess up him getting the cost of the medication covered? Please advise. Melissa Mckeon LPN documented in this encounterMemorial Hospital09-26-2022 History of Present illness Narrative* Cholo Thorpe RPh - 12/23/2021 11:00 AM EDT Primary Care Pharmacy Visit CC (Reason for Consult): DM Goal: A<7% Last Collaborating Physician/GRAILS WEB APPLICATION DEVELOPER Visit: 12/12/21 Lovely Devi is a 76 [...] effects MEDICATIONS: Adherence: denies missed doses. 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 Esophageal Reflux Benign Neoplasm of Colon Dermatophytosis of Nail Paroxysmal Atrial Fibrillation (Hcc) Anticoagulated On Coumadin Class 3 Severe Obesity With Serious Comorbidity and Body Mass Index (Bmi) of 40.0 to 44.9 in Adult ([facility]) Stasis Dermatitis of Both Legs Foot Callus Hyperlipidemia Ldl Goal <100 Ashd (Arteriosclerotic Heart Disease) Neurocardiogenic Syncope 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 With Stage 3a Chronic Kidney Disease, With Long-Term Current Use of Insulin ([facility]) Facet Arthritis of Lumbar Region Adenopathy Atrial Flutter ([facility]) Balanitis Coronary Angioplasty Status History of Deep Venous Thrombosis History of Non-St Elevation Myocardial Infarction (Nstemi) Ischemic Cardiomyopathy Jessica (Obstructive Sleep Apnea) Restless Leg Syndrome 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, With Long-Term Current Use of Insulin ([facility]) Hypertensive Heart and Kidney Disease With [...] Coronary atherosclerosis of unspecified type of vessel, hamilton or graft s/p [place] in 1985 Diverticulosis of colon (without mention of hemorrhage) Duodenitis without mention of hemorrhage Dysphagia 03/01/2015 Facet arthritis of lumbar region 07/14/2017 GERD (gastroesophageal reflux disease) 06/10/12 Heart attack ([facility]) Labyrinthitis 02/05/2010 Neurocardiogenic syncope 03/01/2015 Obesity 09/16/2011 JESSICA treated with BiPAP DME [employer] Other and unspecified hyperlipidemia Other specified forms of chronic ischemic heart disease Paroxysmal ventricular tachycardia ([facility]) Snoring Stroke ([facility]) Tinea of nail 01/13/2011 Type 2 diabetes mellitus with stage 3 chronic kidney disease, with long-term current use of insulin([facility]) 06/15/2017 Unspecified essential hypertension ALLERGIES Allergen [...] Take 2 tablets by mouth twice daily. Snmxb-3-WUB-EPA-Fish Oil (FISH OIL) 1,000 mg (120 mg-180 [...] G47.33 327.23 - fax compliance download to [phone] flash glucose sensor (FREESTYLE FILI 14 DAY SENSOR) kit 1 Each four times daily. spironolactone (ALDACTONE) 25 mg tablet Take 1 tablet by mouth once daily. isosorbide mononitrate ER (IMDUR) 30 mg 24 hr tablet Take 60 mg by mouth once daily. blood sugar diagnostic (abcdexperts BLOOD GLUCOSE SYSTEM) test strip Use as instructed to check blood sugar 3 to 4 times daily DM: yes Insulin: yes DX:11.9 fenofibrate nanocrystallized (TRICOR) 145 mg tablet Take 1 tablet by mouth once daily. pantoprazole DR (PROTONIX) 40 mg tablet Take 40 mg by mouth once daily. Lancets (ONE TOUCH ULTRASOFT LANCETS) lancets Use with Via Glucometer as directed Aspirin 81 mg ORAL [...] neuropathy, with long-term current use of insulin ([facility]) -ICD9: 250.60, 357.2, V58.67, ICD10: E11.40, [...] time was 20 minutes. documented in this encounterMemorial Hospital09-21-2022 Miscellaneous Notes* Telephone Encounter - Kelsie Cerrato RPh - 12/18/2021 10:34 AM EDT [employer] message sent for nearly therapeutic INR. documented in this encounterMemorial Hospital09-15-2022 Instructions* Patient Instructions* Shereen Holt APRN.CNP - 12/12/2021 1:42 PM EDT 1.) You are good candidate for an electric wheelchair. 2.) Have forms faxed to the office for completion [phone] 3.) Keep schedule appointment with Dr. Patino in January. 4.) Continue to take all medications as prescribed. 5.) Follow up as needed. documented in this encounterMemorial Hospital09-15-2022 History of Present illness Narrative* Shereen [...] both knees, neuropathy, and obesity. Going through [employer], recommends a in office appointment. PAST MEDICAL HISTORY: PAST MEDICAL HISTORY Diagnosis Date ASHD (arteriosclerotic heart disease) 02/19/2015 Atrial fibrillation (HCC) 07/03/2011 Automatic implantable cardiac defibrillator in situ Petit's esophagus with esophagitis 03/01/2015 Benign neoplasm of colon Chronic diarrhea 09/16/2011 Coronary atherosclerosis of unspecified type of vessel, hamilton or graft s/p [place] in 1985 Diverticulosis of colon (without mention [...] EGD ESOPHAGOGASTRODUODENOSCOPY TRANSORAL DIAGNOSTIC 02/16/2008 EGD inpt [facility] H-pylori negative ESOPHAGOGASTRODUODENOSCOPY TRANSORAL DIAGNOSTIC 05/24/2015 EGD ESOPHAGOGASTRODUODENOSCOPY TRANSORAL DIAGNOSTIC 12/21/2017 Dr. Anthony-repeat 3 years-11/2020 HEART CATHETERIZATION 12/15/2014 [facility] - see scanned documents HEART SURGERY HX 1 stent LEFT HEART CATH,PERCUTANEOUS Cardiac cath, L heart LEFT HEART CATH,PERCUTANEOUS 06/20/2011 Cardiac cath, L heart PAST SURGICAL HISTORY OF ICD/ pacemaker at [facility] PERC TRANSL COR ANGIO Percutaneous Transluminal Coronary [...] daily at bedtime. flash glucose scanning reader (MILL[employer]UM BIOTECH[employer]IESSTYLE FILI 2 READER) Use to check blood [...] Take 2 tablets by mouth twice daily. Hafrc-5-QQM-EPA-Fish Oil (FISH OIL) 1,000 mg (120 mg-180 [...] G47.33 327.23 - fax compliance download to [phone] flash glucose sensor (FREESTYLE FILI 14 DAY SENSOR) kit 1 Each four times daily. spironolactone (ALDACTONE) 25 mg tablet Take 1 tablet by mouth once daily. isosorbide mononitrate ER (IMDUR) 30 mg 24 hr tablet Take 60 mg by mouth once daily. blood sugar diagnostic (abcdexperts BLOOD GLUCOSE SYSTEM) test strip Use as instructed to check blood sugar 3 to 4 times daily DM: yes Insulin: yes DX:11.9 fenofibrate nanocrystallized (TRICOR) 145 mg tablet Take 1 tablet by mouth once daily. pantoprazole DR (PROTONIX) 40 mg tablet Take 40 mg by mouth once daily. Lancets (ONE TOUCH ULTRASOFT LANCETS) lancets Use with One[employer]uch Glucometer as directed Aspirin 81 mg ORAL [...] APRN.RODRIGUEZ This note was partially generated using [employer] voice recognition system. Note was reviewed for accuracy. There may be minor misspellings or grammar miscues with [employer] voice recognition. documented in this encounterMemorial Hospital09-07-2022 Miscellaneous Notes* Telephone Encounter - Kelsie Cerrato RPh - 12/04/2021 11:45 AM EDT [employer] The[employer] message sent for therapeutic INR. He didn't read our last msg however. documented in this encounterMemorial Hospital09-06-2022 History of Present illness Narrative* May Garcia RN - 12/03/2021 8:49 AM EDT inSight CDM Escalation Follow Up Action/FYI: Contact made with patient: Left Message: My name is May Garcia RN, from the [facility]. I am calling regarding your recent visit with our Virtual Provider. Sorry that I am not able to speak with you. If you have a problem that needs to addressed by your Physician, please contact your Primary Care Provider's office. - END OUTREACH documented in this encounterMemorial Hospital09-02-2022 Miscellaneous Notes* Telephone Encounter - Cholo Thorpe RPh - 11/29/2021 2:19 PM EDT Pt reports that [employer] told him they can sent the Fili 2 sensors but no the reader. Patient does not have a smartphone and is unable to use the sensors without the reader . Called and spoke with [employer]. Since patient has received a CGM meter [...] Primary Care Clinical Pharmacist documented in this encounterMemorial Hospital09-02-2022 History of Present illness Narrative* Federico Holt MD - 11/29/2021 12:54 PM EDT Virtualist Distance Health Note (Community monitoring/CC HC/H@[facility] escalations) Adult seen for Monitoring Track: Chronic Disease Management Contacted by phone, Greendizer, [employer] Duo, Zoom, Doximity, other: phone History of [...] was spent providing medical care using telemedicine. [place] [address] association Signed in as Primary Virtualist, Secondary Virtualist, or [facility] Telehealth provider: Primary SIGNATURE: Federico Holt MD PATIENT NAME: Lovely Devi DATE: November 29, 2021 documented in this encounterMemorial Hospital09-02-2022 History of Present illness Narrative* Tracie Castle RN - 11/29/2021 11:16 AM EDT INSIGHT CDM ESCALATION Provider Action/FYI: CHF CKD DM Escalation to pool for LE edema and weight gain concerns. Seen in [facility] on 11/25/21 for L foot infection- prescribed doxycycline and mupirocin. Patient sees cardiology and pulmonary at [place]. Call 1- no voice mail Call 2-more [...] Used to be 270 ) Weight at [facility] on 11/25/21 was 279 lbs. (States daughter is helping with foot infection- she says it is looking better Next cardiology visit in 02/18 per patient Sending to virutalist for LE edema and weight gain 10 lbs over about a month. Unclear of lasix dosage. Message received via: InSight - Yes contact made with patient ACTION TAKEN: Based on curriculum and assessment director, the following disposition is advised: Urgent / [...] the patient.Route as 'high priority' to Virtualist delinquency prevention social worker - End outreach. documented in this encounterMemorial Hospital09-02-2022 History of Present illness Narrative* Deedeethi Thorpe, [facility] - 11/29/2021 11:00 AM EDT Primary Care [...] to prevent hypoglycemia. Patient was seen in [facility] care on 11/25 for foot [...] effects MEDICATIONS: Adherence: denies missed doses. [facility] coverage: Medicare Affordability: insulins through [employer] Diabetes supplies: [employer] ACTIVE PROBLEM LIST Cardiomegaly Essential Hypertension [...] Coronary atherosclerosis of unspecified type of vessel, hamilton or graft s/p [place] in 1985 Diverticulosis of colon (without mention [...] daily at bedtime. flash glucose scanning reader (MILLENNIUM BIOTECHNOLOGIESSTYLE FILI 2 READER) Use to check blood [...] Take 2 tablets by mouth twice daily. Opslf-4-IYM-EPA-Fish Oil (FISH OIL) 1,000 mg (120 mg-180 [...] G47.33 327.23 - fax compliance download to [phone] flash glucose sensor (FREESTYLE FILI 14 DAY SENSOR) kit 1 Each four times daily. spironolactone (ALDACTONE) 25 mg tablet Take 1 tablet by mouth once daily. isosorbide mononitrate ER (IMDUR) 30 mg 24 hr tablet Take 60 mg by mouth once daily. blood sugar diagnostic (abcdexperts BLOOD GLUCOSE SYSTEM) test strip Use as instructed to check blood sugar 3 to 4 times daily DM: yes Insulin: yes DX:11.9 fenofibrate nanocrystallized (TRICOR) 145 mg tablet Take 1 tablet by mouth once daily. pantoprazole DR (PROTONIX) 40 mg tablet Take 40 mg by mouth once daily. Lancets (ONE TOUCH ULTRASOFT LANCETS) lancets Use with Riva Digital Mediauch Glucometer as directed Aspirin 81 mg ORAL [...] disease, with long-term current use of insulin ([facility]) - ICD9: 250.40, 585.3, V58.67, ICD10: [...] time was 20 minutes. documented in this encounterMemorial Hospital09-02-2022 Evaluation note* Diagnosis Type 2 diabetes mellitus with stage 3a chronic kidney disease, with long-term current use of insulin (HCC)- Primary documented in this encounter [facility] Instructions* Patient Instructions* Jens Wood APRN.CNP - 11/25/2021 1:51 PM EDT ASSESSMENT/PLAN: 1. Left foot infection - ICD9: 686.9, ICD10: L08.9 - Begin treatment with doxycycline - Follow up for recheck with foot DR in 1 week Urgent follow up for worsening symptoms. - DOXYCYCLINE MONOHYDRATE 100 MG TABLET - MUPIROCIN 2 % TOPICAL OINTMENT documented in this encounterMemorial Hospital08-29-2022 History of Present illness Narrative* Jens [...] Coronary atherosclerosis of unspecified type of vessel, hamilton or graft s/p [place] in 1985 Diverticulosis of colon (without mention [...] DIAGNOSTIC EGD ESOPHAGOGASTRODUODENOS[facility] ESOPHAGOGASTRODUODENOSCOPY TRANSORAL DIAGNOSTIC 05/24/2015 EGD ESOPHAGOGASTRODUODENOSCOPY TRANSORAL DIAGNOSTIC 12/21/2017 Dr. Anthony-repeat 3 years-11/2020 HEART CATHETERIZATION 12/15/2014 [facility] - see scanned documents HEART SURGERY HX 1 stent LEFT HEART CATH,PERCUTANEOUS Cardiac cath, L heart LEFT HEART CATH,PERCUTANEOUS 06/20/2011 Cardiac cath, L heart PAST SURGICAL HISTORY OF ICD/ pacemaker at [facility] PERC TRANSL COR ANGIO Percutaneous Transluminal Coronary [...] G47.33 327.23 - fax compliance download to [phone]^Disp: 1 Device^Rfl: 0 flash glucose sensor (MILLENNIUM BIOTECHNOLOGIESSTYLE FILI 14 DAY SENSOR) kit^1 Each four times daily.^Disp: 1 Kit^Rfl: 11 spironolactone (ALDACTONE) 25 mg tablet^Take 1 tablet by mouth once daily.^Disp: ^Rfl: isosorbide mononitrate ER (IMDUR) 30 mg 24 hr tablet^Take 60 mg by mouth once daily. ^Disp: ^Rfl: 0 blood sugar diagnostic (abcdexperts BLOOD GLUCOSE SYSTEM) test strip^Use as instructed to check blood sugar 3 to 4 times daily DM: yes Insulin: yes DX:11.9^Disp: 400 Strip^Rfl: 3 fenofibrate nanocrystallized (TRICOR) 145 mg tablet^Take 1 tablet by mouth once daily.^Disp: ^Rfl: [address] (PROTONIX) 40 mg tablet^Take 40 mg by mouth once daily.^Disp: ^Rfl: Lancets (ONE TOUCH ULTRASOFT LANCETS) lancets^Use with Riva Digital Mediauch Glucometer as directed^Disp: 100 Each^Rfl: 3 Aspirin [...] 2 tablets by mouth twice daily.^Disp: ^Rfl: Bamoa-5-ZMQ-EPA-Fish Oil (FISH OIL) 1,000 mg (120 mg-180 [...] Atb ointment and dsd applied. F/u with sales order specialist in 1 week Urgent f/u for worsening s/s. - DOXYCYCLINE MONOHYDRATE 100 MG TABLET - MUPIROCIN 2 % TOPICAL OINTMENT Agrees to plan Jens Wood APRN.CNP documented in this encounterMemorial Hospital08-25-2022 Miscellaneous Notes* Telephone Encounter - May [...] 01/29/22 May Martinez Ma documented in this encounterMemorial Hospital08-24-2022 Miscellaneous Notes* Telephone Encounter - Cholo [...] Thorpe PharmD, BCACP Primary Care Clinical Pharmacist [facility] documented in this encounterMemorial Hospital08-24-2022 Miscellaneous Notes* Telephone Encounter - Kelsie Cerrato RPh - 11/20/2021 10:53 AM EDT Bantr message sent for therapeutic range. Kelsie Cerrato PharmD documented in this encounterMemorial Hospital08-16-2022 NoteHNO ID: [id number] Author: Lillian Rico, PT, DPT Service: ? Author Type: Physical Therapist Type: Progress Notes Filed: 11/12/2021 2:57 PM Note Text: [facility] Outpatient Physical Therapy [address] [place] [id number] Dept: [phone] Dept Start of Care Date: 11/12/21 Onset [...] transfers, gait, dressing, and community mobility PMH: LA (x 6 starting at age 38 with [...] flexion 3+/5 4+/5 Wrist extension 3+/5 5/5 Web Operations Specialist strength WFL WFL Hand Dexterity: WFL UE sensation: WFL Head Control and Position Control: good Position: neutral Head Control Against [place]: able to maintain line of sight against gravity PRESSURE MANAGEMENT ISSUES RISK FACTORS PRESENT: 1. Sensory percep (more content not included)...[facility] [id number] History of Present illness Narrative* May Garcia [...] stable no further interventions documented in this encounterMemorial Hospital08-12-2022 Miscellaneous Notes* Telephone Encounter - Cholo Thorpe RPh - 11/08/2021 11:17 AM EDT Attempted to call patient for today's scheduled pharmacy phone follow up. Not able to reach after several attempts. Appointment notes list daughters phone. Contacted and Left voicemail on that line Cholo Thorpe PharmD Primary Care Clinical Pharmacist [facility] documented in this encounterMemorial Hospital08-12-2022 History of Present illness Narrative* Cholo [...] Trini Rx coverage: Medicare Affordability: insulins through [employer] Diabetes supplies: [employer] ACTIVE PROBLEM LIST Cardiomegaly Essential Hypertension Paroxysmal [...] Coronary atherosclerosis of unspecified type of vessel, hamilton or graft s/p LA in 1985 Diverticulosis of colon (without mention [...] daily at bedtime. flash glucose scanning reader (MILLENNIUM BIOTECHNOLOGIESSTYLE FILI 2 READER) Use to check blood [...] Take 2 tablets by mouth twice daily. Qssvu-9-IKW-EPA-Fish Oil (FISH OIL) 1,000 mg (120 mg-180 [...] G47.33 327.23 - fax compliance download to [phone] flash glucose sensor (FREESTYLE FILI 14 DAY SENSOR) kit 1 Each four times daily. spironolactone (ALDACTONE) 25 mg tablet Take 1 tablet by mouth once daily. isosorbide mononitrate ER (IMDUR) 30 mg 24 hr tablet Take 60 mg by mouth once daily. blood sugar diagnostic (abcdexperts BLOOD GLUCOSE SYSTEM) test strip Use as instructed to check blood sugar 3 to 4 times daily DM: yes Insulin: yes DX:11.9 fenofibrate nanocrystallized (TRICOR) 145 mg tablet Take 1 tablet by mouth once daily. pantoprazole DR (PROTONIX) 40 mg tablet Take 40 mg by mouth once daily. Lancets (ONE TOUCH ULTRASOFT LANCETS) lancets Use with Riva Digital Mediauch Glucometer as directed Aspirin 81 mg ORAL [...] TG 192 04/23/2020 The ASCVD Risk score (Monroe CLOTILDE Jr., et al., 2013) failed to calculate for the following reasons: The valid total cholesterol range is 130 to 320 mg/dL Albumin/Creat Ratio (mg/g) Date Value 05/01/2021 Not calculated PHARMACOTHERAPY ASSESSMENT/PLAN: 1. Type 2 diabetes mellitus with diabetic neuropathy, with long-term current use of insulin ([facility]) -ICD9: 250.60, 357.2, V58.67, ICD10: E11.40, [...] Thorpe PharmD, BCACP Primary Care Clinical Pharmacist [facility] The majority of the pharmacy visit (> 50%) was spent counseling and/or coordinating care for thepatient. [Telephonic] time was 20 minutes. documented in this encounterMemorial Hospital08-11-2022 History of Present illness Narrative* Federico Holt MD - 11/07/2021 12:31 PM EDT Virtualist Distance Health Note (for inSight community monitoring and CC HC escalations) Adult seen for Monitoring Track: Chronic Disease Management Contacted by phone, [employer], [employer], [employer], [employer], [employer], [employer], other: phone History of present [...] was spent providing medical care using telemedicine. [place] [address] association Signed in as Primary Virtualist, Secondary Virtualist, or [facility] Telehealth provider: Primary SIGNATURE: Federico Holt MD PATIENT NAME: Lovely Devi DATE: November 07, 2021 documented in this encounterMemorial Hospital08-11-2022 History of Present illness Narrative* Tracie Castle RN - 11/07/2021 12:08 PM EDT INSIGHT CDM ESCALATION Provider Action/FYI: CHF CKD Escalation for SOB and inability to lie flat Sees cardiology and pulmonary at [place]. Next family med appt 01/29/22 SOB increase [...] has pulmonary appt tomorrow. Last visit to carry out clerk and shelf stocker 3-4 months ago. Encouraged to schedule follow up Escalated to virtualist for increased SOB x 7 days with noted decline in activity tolerance. Message received via: InSight - Yes contact made with patient ACTION TAKEN: Based on curriculum and assessment director, the following disposition is advised: Urgent / [place] [phone] and indicate 'CDM patient', MRN, Patient Name, [...] the patient.Route as 'high priority' to Cashist delinquency prevention social worker - End outreach. documented in this encounterMemorial Hospital08-10-2022 Miscellaneous Notes* Telephone Encounter - Kelsie Cerrato RPh - 11/06/2021 10:55 AM EDT MyChart message sent for INR result nearly in range. Kelsie Cerrato PharmD documented in this encounterMemorial Hospital07-27-2022 Miscellaneous Notes* Telephone Encounter - Kelsie Cerrato RPh - 10/23/2021 10:17 AM EDT MyChart message sent for therapeutic INR. documented in this encounterMemorial Hospital07-27-2022 Miscellaneous Notes* Telephone Encounter - May Garza [facility] - 10/23/2021 9:24 AM EDT Left VM for the patient to confirm up coming visit. Patient is scheduled for a wheel chair evaluation on 11/12/21 at 2 pm. documented in this encounterMemorial Hospital07-25-2022 History of Present illness Narrative* Tracie Castle RN - 10/21/2021 12:47 PM EDT INSIGHT CDM ESCALATION Provider Action/FYI: CHF CKD CM Escalation to pool for increased weight gain Per chart review- sees cardiology and pulmonology at [place] Next PCP appt 01/29/22 - to establish/transfer care Has pharmacy phone call for DM management- 11/08/21 Patient states weight has not increased. Notes today - 272 lbs. Last weight in [facility]- 270 lbs (08/09/21). Reports LE edema that is unchanged, not increased. States it is always there. Reports leg elevation does not help. States SOB is at baseline. Shared that he saw carry out clerk and shelf stocker a couple of months ago . Declines need for further intervention at this time. Declines virtualist.. Reviewed signs/symptoms to reach out to providers, Including weight gain, increased SOB, edema or chest pain. Reviewed importance of being proactive when symptoms start/increase. Patient states he will reach out to carry out clerk and shelf stocker should concerns increase. Appreciative of call. Message received via: InSight - Yes contact made with patient ACTION TAKEN: Based on curriculum and assessment director, the following disposition is advised: SYMPTOMS PRESENT NOT SEVERE: No action required - Continue outreach / Phone Call documented in this encounterMemorial Hospital07-13-2022 Miscellaneous Notes* Addendum Note - Ariana [...] 2 reader plus sensor kit. He uses [employer] for supplies. Please approved pended orders as printed RX. Once provider has signed, please fax orders to [employer] . Pending Prescriptions Disp Refills FREESTYLE FILI 2 READER 1 Each 0 Sig: Use to check blood sugar at least four (4) times daily. ZBIGNIEW: No FREESTYLE FILI 2 SENSOR KIT 6 Each 4 Sig: Apply new sensor every fourteen (14) days to upper arm. ZBIGNIEW: No Cholo Thorpe PharmD, BCACP Primary Care Clinical Pharmacist [facility] documented in this encounterMemorial Hospital07-12-2022 Miscellaneous Notes* Telephone Encounter - Jaun [...] ZBIGNIEW: No CALVIN 08/09/21 NOV 01/29/22 to [facility] Care with Dr. Patino Please review and advise. Ronen Avery LPN documented in this encounterMemorial Hospital07-08-2022 Miscellaneous Notes* Telephone Encounter - Fahad Cid RN - 10/04/2021 9:56 AM EDT Bantr message sent to patient. documented in this encounterMemorial Hospital06-15-2022 Miscellaneous Notes* Telephone Encounter - Kelsie Cerrato [facility] - 09/11/2021 1:24 PM EDT [facility] Anticoagulation [...] check scheduled on 09/25 Will send a MoSynct Bantrg Kelsie Cerrato RPh Clinical Pharmacist, Pharmacy Anticoagulation Clinic Pharmacy [facility] Pager: [phone] . documented in this encounterMemorial Hospital06-14-2022 Miscellaneous Notes* Telephone Encounter - Jaun [...] patient. Ashley Ellis Ma documented in this encounterMemorial Hospital06-13-2022 Miscellaneous Notes* Telephone Encounter - May Maritnez Ma - 09/09/2021 8:38 AM EDT This was addressed via Inkomerce message today. May Martinez Ma documented in this encounterMemorial Hospital06-13-2022 Miscellaneous Notes* Telephone Encounter - Shereen [...] 8:01 AM EDT Rx was done at [facility]. Pt needs refill. 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 Esophageal Reflux Benign Neoplasm of Colon Dermatophytosis of Nail Paroxysmal Atrial Fibrillation ([facility]) Anticoagulated On Coumadin Class 3 Severe Obesity With Serious Comorbidity and Body Mass Index (Bmi) of 40.0 to 44.9 in Adult ([facility]) Stasis Dermatitis of Both Legs Foot Callus Hyperlipidemia Ldl Goal <100 Ashd (Arteriosclerotic Heart Disease) Neurocardiogenic Syncope 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 With Stage 3a Chronic Kidney Disease, With Long-Term Current Use of Insulin ([facility]) Facet Arthritis of Lumbar Region Adenopathy Atrial Flutter ([facility]) Balanitis Coronary Angioplasty Status History of Deep Venous Thrombosis History of Non-St Elevation Myocardial Infarction ([facility]i) Ischemic Cardiomyopathy Jessica (Obstructive Sleep Apnea) Restless Leg Syndrome 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, With Long-Term Current Use of Insulin ([facility]) 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 and Stage 3a Chronic Kidney Disease ([facility]) 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 At Moderate Risk for Fall Chronic Pain of Both Knees Stage 3a Chronic Kidney Disease (Hcc) PAST MEDICAL HISTORY Diagnosis Date ASHD (arteriosclerotic heart disease) 02/19/2015 Atrial fibrillation (HCC) 07/03/2011 Automatic implantable cardiac defibrillator in situ Petit's esophagus with esophagitis 03/01/2015 Benign neoplasm of colon Chronic diarrhea 09/16/2011 Coronary atherosclerosis of unspecified type of vessel, hamilton or graft s/p LA in 1985 Diverticulosis of colon (without mention of hemorrhage) Duodenitis without mention of hemorrhage Dysphagia 03/01/2015 Facet arthritis of lumbar region 07/14/2017 GERD (gastroesophageal reflux disease) 06/10/12 Heart attack (HCC) Labyrinthitis 02/05/2010 Neurocardiogenic syncope 03/01/2015 Obesity 09/16/2011 JESSICA treated with BiPAP DME [employer] Other and unspecified hyperlipidemia Other specified forms of chronic ischemic heart disease Paroxysmal ventricular tachycardia (HCC) Snoring Stroke ([facility]) Tinea of nail 01/13/2011 Type 2 diabetes mellitus with stage 3 chronic kidney disease, with long-term current use of insulin([facility]) 06/15/2017 Unspecified essential hypertension ALLERGIES Allergen [...] Take 2 tablets by mouth twice daily. Degmg-9-MWT-EPA-Fish Oil (FISH OIL) 1,000 mg (120 mg-180 [...] G47.33 327.23 - fax compliance download to [phone] flash glucose sensor (FREESTYLE FILI 14 DAY SENSOR) kit 1 Each four times daily. spironolactone (ALDACTONE) 25 mg tablet Take 1 tablet by mouth once daily. isosorbide mononitrate ER (IMDUR) 30 mg 24 hr tablet Take 60 mg by mouth once daily. blood sugar diagnostic (abcdexperts BLOOD GLUCOSE SYSTEM) test strip Use as [...] TG 192 04/23/2020 The ASCVD Risk score (Monroepetty MABRY Jr., et al., 2013) failed to [...] Thorpe, Abner, BCACP Primary Care Clinical Pharmacist [facility] The majority of the pharmacy visit (> 50%) was spent counseling and/or coordinating care for thepatient. [Telephonic] time was 22 minutes. documented in this encounterMemorial Hospital06-10-2022 Evaluation note* Diagnosis Type 2 diabetes mellitus with stage 3a chronic kidney disease, with long-term current use of insulin (HCC) documented in this encounter [facility]06-09-2022 History of Present illness Narrative* Yaya Ibarra MD - 09/05/2021 3:22 PM EDT Associated Order(s): Large Joint Arthro/Inj: R knee joint Yaya Ibarra MD Department of Orthopaedics Orthopaedics [address] [place] [address] Dept: [phone] Dept September 05, 2021 CHIEF COMPLAINT: Established [...] knee joint Informed Consent Consent Obtained: Verbal [place] Protocol A moment to CARE was completed. [...] EGD ESOPHAGOGASTRODUODENOSCOPY TRANSORAL DIAGNOSTIC 02/16/2008 EGD inpt [facility] H-pylori negative ESOPHAGOGASTRODUODENOSCOPY TRANSORAL DIAGNOSTIC 05/24/2015 EGD ESOPHAGOGASTRODUODENOSCOPY TRANSORAL DIAGNOSTIC 12/21/2017 Dr. Anthony-repeat 3 years-11/2020 HEART CATHETERIZATION 12/15/2014 [facility] - see scanned documents HEART SURGERY HX 1 stent LEFT HEART CATH,PERCUTANEOUS Cardiac cath, L heart LEFT HEART CATH,PERCUTANEOUS 06/20/2011 Cardiac cath, L heart PAST SURGICAL HISTORY OF ICD/ pacemaker at [facility] PERC TRANSL COR ANGIO Percutaneous Transluminal Coronary [...] Take 2 tablets by mouth twice daily. Uspmr-0-DTX-EPA-Fish Oil (FISH OIL) 1,000 mg (120 mg-180 [...] G47.33 327.23 - fax compliance download to [phone] flash glucose sensor (FREESTYLE FILI 14 DAY SENSOR) kit 1 Each four times daily. blood sugar diagnostic (abcdexperts BLOOD GLUCOSE SYSTEM) test strip Use as instructed to check blood sugar 3 to 4 times daily DM: yes Insulin: yes DX:11.9 Lancets (ONE TOUCH ULTRASOFT LANCETS) lancets Use with Riva Digital Mediauch Glucometer as directed NITROGLYCERIN 0.3 MG SUBLINGUAL [...] anxiety) Yaya Ibarra MD documented in this encounterMemorial Hospital06-02-2022 Miscellaneous Notes* Telephone Encounter - Kerry Escobar [facility] - 08/29/2021 2:38 PM EDT [facility] Lovely [...] Pharmacy Anticoagulation Clinic Pharmacy Anticoagulation Clinic Pager: [phone] * Telephone Encounter - Vera Watson RN - 08/29/2021 2:33 PM EDT Patient returned the call and can be reached at [phone]. Meaghan Watson RN Pharmacy Anticoagulation Clinic * Telephone Encounter - Kerry Escobar RPh - 08/29/2021 10:19 AM EDT [facility] Lovely [...] Pharmacy Anticoagulation Clinic Pharmacy Anticoagulation Clinic Pager: [phone] * Telephone Encounter - Kelsie Cerrato RPh - 08/28/2021 4:33 PM EDT Patient was due to test INR today will continue to monitor for results. Kelsie Cerrato PharmD. documented in this encounterMemorial Hospital05-18-2022 Miscellaneous Notes* Telephone Encounter - Kelsie Cerrato RPh - 08/14/2021 10:39 AM EDT [facility] Anticoagulation [...] of liver or green tea, Ensure, Boost, [place] Instant Breakfast, Mulit-Vitamins, and V-8. Plan: Called and spoke to patient/caregiver Advised patient to hold 1 dose then continue current regimen Next home INR check scheduled on 08/28/2021 Patient verbalizes understanding of the plan. Patient denies need for refills. Kelsie Cerrato RPh Clinical Pharmacist, Pharmacy Anticoagulation Clinic Pharmacy Anticoagulation Clinic Pager: [phone] . documented in this encounterMemorial Hospital05-13-2022 Instructions* Patient Instructions* Ramiro Null APRN.CNP, DNP - 08/09/2021 3:05 PM EDT Consult for Wheelchair mobility assessment: For an appointment call Rehabilitation and Sports Therapy: [phone]. The agent telegrapher will assist you in selecting the location and specialty service that will best meet your needs. For a list of sites and services: [email or web address] Order Date: July 29, 2021 Ordering Physician: Ramiro Null APRN.CNP, DNP (Signed Electronically in [facility]) documented in this encounterMemorial Hospital05-13-2022 History of Present illness Narrative* Ramiro Null APRN.CNP, DNP - 08/09/2021 2:51 PM EDT Flecking kidney BX Chief Complaint Patient presents with: wheelchair assessment HPI Lovely E Swartzentruber is a 75 year old male who presents here today for follow- up exam. This is anestablished patient of Ramiro Null APRN.DAIRY CHEMIST, DNP present for appointment today Specialty providers: Cardiology: [facility] - Dr. Perry [facility] Clinical pharmacy: Dr. Thorpe Orthopedics: Dr. Ibarra. Pulmonology: Dr. Ayala - [facility] Mobility: Difficulty moving around. Uses wheelchair frequently.. [...] Coronary atherosclerosis of unspecified type of vessel, hamilton or graft s/p [place] in 1985 Diverticulosis of colon (without mention [...] EGD ESOPHAGOGASTRODUODENOSCOPY TRANSORAL DIAGNOSTIC 02/16/2008 EGD inpt [facility] H-pylori negative ESOPHAGOGASTRODUODENOSCOPY TRANSORAL DIAGNOSTIC 05/24/2015 EGD ESOPHAGOGASTRODUODENOSCOPY TRANSORAL DIAGNOSTIC 12/21/2017 Dr. Anthony-repeat 3 years-11/2020 HEART CATHETERIZATION 12/15/2014 [facility] - see scanned documents HEART SURGERY HX 1 stent LEFT HEART CATH,PERCUTANEOUS Cardiac cath, L heart LEFT HEART CATH,PERCUTANEOUS 06/20/2011 Cardiac cath, L heart PAST SURGICAL HISTORY OF ICD/ pacemaker at [facility] PERC TRANSL COR ANGIO Percutaneous Transluminal Coronary [...] G47.33 327.23 - fax compliance download to [phone] flash glucose sensor (FREESTYLE FILI 14 DAY [...] by mouth once daily. blood sugar diagnostic (abcdexperts BLOOD GLUCOSE SYSTEM) test strip Use as [...] (ONE TOUCH ULTRASOFT LANCETS) lancets Use with Via Glucometer as directed Aspirin 81 mg ORAL [...] Upper extremity strength is 4-5. Has decreased independent living advisor strength at3 out of 5. Has a [...] Needs mobility scooter and evaluation/assessment completed. Provided [facility] information and appointment for scheduling - CONSULT TO PHYSICAL THERAPY 2. Mobility impaired - ICD9: 799.89, ICD10: Z74.09 Plan is #1 - CONSULT TO PHYSICAL THERAPY 3. At moderate risk for fall - ICD9: V15.88, ICD10: Z91.81 Plan is #1 - CONSULT TO PHYSICAL THERAPY 4. Acute on chronic HFrEF (heart failure with reduced ejection fraction) ([facility]) - ICD9: 428.23, ICD10: I50.23 Clinically [...] MG TABLET This note was completed with HouseFix dictation software. Note was reviewed for accuracy. There may be minor misspellings or grammar miscues with Dragon 360 Dictation. I spent a total of 23 minutes on the date of the service which included preparing to see the patient, [id number]-[id number] patient care, completing clinical documentation, performing a medically appropriate examination, counseling and educating the patient/family/caregiver and ordering medications, tests, or procedures. [facility] [address] [address] This note was copied from previous note and exam dated 07/29/21. Author is Ramiro Null APRN.Brent FRIAS reviewed and changes have been made or updates noted in the copy & paste portion of an encounter. documented in this encounterMemorial Hospital05-13-2022 Nurse Note* May Martinez Ma - [...] Falls and Maintaining Balance documented in this encounterMemorial Hospital05-12-2022 Miscellaneous Notes* Telephone Encounter - Ariana Mccormick Cma - 08/08/2021 2:40 PM EDT Patient scheduled for wheelchair assessment 08/09/21 Ariana Mccormick Cma * Telephone Encounter - Ramiro Null APRN.FAIZA FRIAS - 08/07/2021 1:15 PM EDT Rx printed. Please inform patient to picker operator Rx. Orders signed Orders Placed This Encounter TONY FRAME MOTOR/PWR WHEELCHR Order Comments: 75-year-old male who has chronic heart failure, chronic bilateral knee pain, and mobility and classIII severe obesity. Needs power/electric mobile wheelchair. Please authorize. Ramiro Null DNP, CNP Counts Include [address] [facility] Ramiro Null APRN.FAIZA FRIAS * Telephone Encounter - Eleanor Nobles RN - 08/07/2021 12:18 PM EDT Patient calls to let provider know that he has contacted Medicare and they told him they will coverthe Hoveround w/c at any local DME company. Patient is asking for a printed prescription and will picker operator once completed. Patient requesting a call back at [phone] when prescription is ready. Eleanor Nobles RN * Telephone Encounter - Cindi Eastman LPN - 08/07/2021 11:47 AM EDT 1. Pt calling and states [facility] called him today and cancelled his apt for a wheel chair evaluation [facility] and told pt they do not do this. Not certain where to have this done. 2. He tried calling 2 numbers that were given to him at his last apt to get an and the 1st number he called no one answered and [facility]7.95 a day to rent the houverround wheel chair. Pt states can not afford this. 3. His is going to call [employer] to see if he can order thru them and will call the office back. If not pt aware he needs to let us know what DME company his insurance will cover. Cindi Eastman LPN documented in this encounterMemorial Hospital05-12-2022 Miscellaneous Notes* Telephone Encounter - Ramiro Null APRN.CNP, DNP - 08/08/2021 7:03 AM EDT See Mychart response. * Telephone Encounter - Ankita Virk Ma - 08/07/2021 5:06 PM EDT rx pended, please advise Ankita Virk Ma documented in this encounterMemorial Hospital05-04-2022 Miscellaneous Notes* Telephone Encounter - Candy Dominguez RPh - 07/31/2021 10:52 AM EDT [facility] message sent with INR result, dosing and information on when to test next. Candy Dominguez PharmD * Telephone Encounter - Yrn Armas RPh - 07/30/2021 9:18 AM EDT Patient due to test INR today. Will continue to monitor for results. Yrn Armas RPh documented in this encounterMemorial Hospital05-02-2022 Instructions* Patient Instructions* Ramiro Null APRN.CNP, [...] Ramiro Null APRN.FAIZA FRIAS documented in this encounterMemorial Hospital05-02-2022 History of Present illness Narrative* Ramiro [...] Orthopedics: Dr. Ibarra. Pulmonology: Dr. Ayala - [facility] Cardiac: Chronic mild shortness of breath. Followed by Oziel espinoza and by Dr. Perry. History of coronary artery disease with non-ST LA, ischemic cardiomyopathy with ICD implant and recent generator in December 2018. In 2018 echocardiogram showed ejection fraction of 45%. He had repeat echo completed in October 2019 which showed ejection fraction of 47%. Amiodarone was discontinued at his previous appointment. Lasix was increased to 80 mg. Recently seen by [facility]. CBC and CMP completed. No [...] fall asleep. Once asleep stays asleep. 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 No use of [id number] sleep aids. No recent use of prescription [...] Coronary atherosclerosis of unspecified type of vessel, hamilton or graft s/p LA in 1985 Diverticulosis of colon (without mention [...] EGD ESOPHAGOGASTRODUODENOSCOPY TRANSORAL DIAGNOSTIC 02/16/2008 EGD inpt [facility] H-pylori negative ESOPHAGOGASTRODUODENOSCOPY TRANSORAL DIAGNOSTIC 05/24/2015 EGD ESOPHAGOGASTRODUODENOSCOPY TRANSORAL DIAGNOSTIC 12/21/2017 Dr. Anthony-repeat 3 years-11/2020 HEART CATHETERIZATION 12/15/2014 [facility] - see scanned documents HEART SURGERY HX 1 stent LEFT HEART CATH,PERCUTANEOUS Cardiac cath, L heart LEFT HEART CATH,PERCUTANEOUS 06/20/2011 Cardiac cath, L heart PAST SURGICAL HISTORY OF ICD/ pacemaker at [facility] PERC TRANSL COR ANGIO Percutaneous Transluminal Coronary [...] G47.33 327.23 - fax compliance download to [phone] flash glucose sensor (FREESTYLE FILI 14 DAY [...] by mouth once daily. blood sugar diagnostic (abcdexperts BLOOD GLUCOSE SYSTEM) test strip Use as [...] (ONE TOUCH ULTRASOFT LANCETS) lancets Use with [employer] Glucometer as directed Aspirin 81 mg ORAL [...] HFrEF (heart failure with reduced ejection fraction) ([facility]) - ICD9: 428.23, ICD10: I50.23 Clinically [...] Follow-up in 2 to 3 weeks via Bantr message Ramiro Null APRN.DAIRY CHEMIST, DNP This note was completed with [employer] dictation software. Note was reviewed for accuracy. There may be minor misspellings or grammar miscues with [employer] Dictation. I spent a total of 45 minutes on the date of the service which included preparing to see the patient, [id number] patient care, completing clinical documentation, performing a medically appropriate examination, counseling and educating the patient/family/caregiver and ordering medications, tests, or procedures. [place] [phone] This note was copied from previous note and exam dated 05/21/21. Author is Ramiro Null APRN.FAIZA FRIAS note reviewed and changes have been made or updates noted in the copy & paste portion of an encounter. documented in this encounterMem[facility]22 History of Present illness Narrative* Donna Jose LPN - 07/25/2021 1:12 PM EDT Patient presents for COVID booster. Denies any problems at this time. Tolerated injection well. Donna Jose LPN documented in this encounterMem[facility] Hospital04-21-2022 Miscellaneous Notes* Telephone Encounter - Ramiro [...] you. Cindi Eastman LPN documented in this encounterMemorial Hospital04-20-2022 Instructions* Patient Instructions* Shereen Holt APRN.CNP [...] in and get xray. documented in this encounterMemorial Hospital04-20-[facility]22 History of Present illness Narrative* Shereen [...] clindamycin for cellulitis. 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 Redness has improved but difficulty with independent living advisor strenghth due to infection. No fever or chills. PAST MEDICAL HISTORY: PAST MEDICAL HISTORY Diagnosis Date ASHD (arteriosclerotic heart disease) 02/19/2015 Atrial fibrillation (HCC) 07/03/2011 Automatic implantable cardiac defibrillator in situ Petit's esophagus with esophagitis 03/01/2015 Benign neoplasm of colon Chronic diarrhea 09/16/2011 Coronary atherosclerosis of unspecified type of vessel, hamilton or graft s/p LA in 1985 Diverticulosis of colon (without mention [...] DIAGNOSTIC EGD ESOPHAGOGASTRODUODENOSCOPY [facility]HAGOGASTRODUODENOSCOPY TRANSORAL DIAGNOSTIC 05/24/2015 EGD ESOPHAGOGASTRODUODENOSCOPY TRANSORAL DIAGNOSTIC 12/21/2017 Dr. Anthony-repeat 3 years-11/2020 HEART CATHETERIZATION 12/15/2014 [facility] - see scanned documents HEART SURGERY HX 1 stent LEFT HEART CATH,PERCUTANEOUS Cardiac cath, L heart LEFT HEART CATH,PERCUTANEOUS 06/20/2011 Cardiac cath, L heart PAST SURGICAL HISTORY OF ICD/ pacemaker at [facility] PERC TRANSL COR ANGIO Percutaneous Transluminal Coronary [...] Take 2 tablets by mouth twice daily. Slaiu-0-HZA-EPA-Fish Oil (FISH OIL) 1,000 mg (120 mg-180 [...] G47.33 327.23 - fax compliance download to [phone] flash glucose sensor (FREESTYLE FILI 14 DAY SENSOR) kit 1 Each four times daily. spironolactone (ALDACTONE) 25 mg tablet Take 1 tablet by mouth once daily. isosorbide mononitrate ER (IMDUR) 30 mg 24 hr tablet Take 60 mg by mouth once daily. blood sugar diagnostic (abcdexperts BLOOD GLUCOSE SYSTEM) test strip Use as instructed to check blood sugar 3 to 4 times daily DM: yes Insulin: yes DX:11.9 fenofibrate nanocrystallized (TRICOR) 145 mg tablet Take 1 tablet by mouth once daily. pantoprazole DR (PROTONIX) 40 mg tablet Take 40 mg by mouth once daily. Lancets (ONE TOUCH ULTRASOFT LANCETS) lancets Use with [employer] Glucometer as directed Aspirin 81 mg ORAL [...] No swelling, but tender with touch. Decreased independent living advisor strength/ROM. Improved since last visit. Head: Normocephalic, [...] APRN.RODRIGUEZ This note was partially generated using [employer] voice recognition system. Note was reviewed for accuracy. There may be minor misspellings or grammar miscues with Dragon voice recognition. documented in this encounterMemorial Hospital04-19-2022 Miscellaneous Notes* Telephone Encounter - Lin Phan RPh - 07/16/2021 10:08 AM EDT MoSynct message sent. Lin Phan RPh.' documented in this encounterMemorial Hospital04-18-2022 History of Present illness Narrative* Tessie Whyte PA-C - 07/15/2021 1:02 PM EDT This note was created using Camilooter. Subjective Lovely Devi is a 75 year [...] Coronary atherosclerosis of unspecified type of vessel, hamilton or graft s/p LA in 1985 Diverticulosis of colon (without mention [...] Take 2 tablets by mouth twice daily. Zbkqn-7-GOI-EPA-Fish Oil (FISH OIL) 1,000 mg (120 mg-180 [...] G47.33 327.23 - fax compliance download to [phone] 1 Device 0 flash glucose sensor (FREESTYLE FILI 14 DAY SENSOR) kit 1 Each four times daily. 1 Kit 11 spironolactone (ALDACTONE) 25 mg tablet Take 1 tablet by mouth once daily. isosorbide mononitrate ER (IMDUR) 30 mg 24 hr tablet Take 60 mg by mouth once daily. 0 blood sugar diagnostic (abcdexperts BLOOD GLUCOSE SYSTEM) test strip Use as instructed to check blood sugar 3 to 4 times daily DM: yes Insulin: yes DX:11.9 400 Strip 3 fenofibrate nanocrystallized (TRICOR) 145 mg tablet Take 1 tablet by mouth once daily. [address] (PROTONIX) 40 mg tablet Take 40 mg by mouth once daily. Lancets (ONE TOUCH ULTRASOFT LANCETS) lancets Use with [employer] Glucometer as directed 100 Each 3 Aspirin [...] DIAGNOSTIC EGD ESOPHAGOGASTRODUODENOSCOPY TRANSORAL [facility]NOSTIC [facility] ESOPHAGOGASTRODUODENOSCOPY TRANSORAL DIAGNOSTIC 05/24/2015 EGD ESOPHAGOGASTRODUODENOSCOPY TRANSORAL DIAGNOSTIC 12/21/2017 Dr. Anthony-repeat 3 years-11/2020 HEART CATHETERIZATION 12/15/2014 [facility] - see scanned documents HEART SURGERY HX 1 stent LEFT HEART CATH,PERCUTANEOUS Cardiac cath, L heart LEFT HEART CATH,PERCUTANEOUS 06/20/2011 Cardiac cath, L heart PAST SURGICAL HISTORY OF ICD/ pacemaker at [facility] PERC TRANSL COR ANGIO Percutaneous Transluminal Coronary [...] ROUTINE Tessie Whyte PA-C documented in this encounterMemorial Hospital04-14-2022 Miscellaneous Notes* Telephone Encounter - Ashley Ellis Ma - 07/11/2021 8:41 AM EDT Pt called and appt scheduled documented in this encounterMemorial Hospital04-06-2022 Miscellaneous Notes* Telephone Encounter - Kelsie Cerrato [facility] - 07/03/2021 10:46 AM EDT [facility] msg sent for INR in therapeutic range. documented in this encounterMemorial Hospital05-01-2019 History of Past illness Narrative* Problem [...] of this encounter (statuses as of 07/03/2021) [facility] [...] of this encounter (statuses as of 07/03/2021) [facility]* [...] of this encounter (statuses as of 07/11/2021) [facility] [...] of this encounter (statuses as of 07/15/2021) [facility] [...] of this encounter (statuses as of 07/16/2021) [facility] [...] of this encounter (statuses as of 07/17/2021) [facility] [...] of this encounter (statuses as of 07/18/2021) [facility] [...] of this encounter (statuses as of 07/25/2021) [facility] [...] of this encounter (statuses as of 07/29/2021) [facility] [...] of this encounter (statuses as of 07/31/2021) [facility] [...] of this encounter (statuses as of 08/08/2021) [facility] [...] of this encounter (statuses as of 08/08/2021) [facility] [...] of this encounter (statuses as of 08/09/2021) [facility] [...] of this encounter (statuses as of 08/14/2021) [facility] [...] of this encounter (statuses as of 08/29/2021) [facility] [...] of this encounter (statuses as of 09/06/2021) [facility] [...] of this encounter (statuses as of 09/09/2021) [facility] [...] of this encounter (statuses as of 09/10/2021) [facility] [...] of this encounter (statuses as of 09/11/2021) [facility] [...] of this encounter (statuses as of 09/19/2021) [facility] [...] of this encounter (statuses as of 10/04/2021) [facility] [...] of this encounter (statuses as of 10/08/2021) [facility] [...] of this encounter (statuses as of 10/09/2021) [facility] [...] of this encounter (statuses as of 10/21/2021) [facility] [...] of this encounter (statuses as of 10/23/2021) [facility] [...] of this encounter (statuses as of 11/06/2021) [facility] [...] of this encounter (statuses as of 11/07/2021) [facility] [...] of this encounter (statuses as of 11/07/2021) [facility] [...] of this encounter (statuses as of 11/08/2021) [facility] [...] of this encounter (statuses as of 11/11/2021) [facility] [...] of this encounter (statuses as of 11/18/2021) [facility] [...] of this encounter (statuses as of 11/20/2021) [facility] [...] of this encounter (statuses as of 11/20/2021) [facility] [...] of this encounter (statuses as of 11/20/2021) [facility] [...] of this encounter (statuses as of 11/21/2021) [facility] [...] of this encounter (statuses as of 11/25/2021) [facility] [...] of this encounter (statuses as of 11/29/2021) [facility] [...] of this encounter (statuses as of 11/29/2021) [facility] [...] of this encounter (statuses as of 11/29/2021) [facility] [...] of this encounter (statuses as of 12/03/2021) [facility] [...] of this encounter (statuses as of 12/04/2021) [facility] [...] of this encounter (statuses as of 12/12/2021) [facility] [...] of this encounter (statuses as of 12/18/2021) [facility] [...] of this encounter (statuses as of 12/25/2021) [facility] [...] of this encounter (statuses as of 12/26/2021) [facility] [...] of this encounter (statuses as of 01/03/2022) [facility] [...] of this encounter (statuses as of 01/14/2022) [facility] [...] of this encounter (statuses as of 01/18/2022) [facility] [...] of this encounter (statuses as of 01/21/2022) [facility] [...] of this encounter (statuses as of 01/23/2022) [facility] [...] of this encounter (statuses as of 01/23/2022) [facility] [...] of this encounter (statuses as of 01/24/2022) [facility] [...] of this encounter (statuses as of 01/27/2022) [facility] [...] of this encounter (statuses as of 01/27/2022) [facility] [...] of this encounter (statuses as of 01/29/2022) [facility] [...] of this encounter (statuses as of 01/30/2022) [facility] [...] of this encounter (statuses as of 02/03/2022) [facility] [...] of this encounter (statuses as of 02/07/2022) [facility] [...] of this encounter (statuses as of 02/12/2022) [facility] [...] of this encounter (statuses as of 02/12/2022) [facility] [...] of this encounter (statuses as of 02/12/2022) [facility] [...] of this encounter (statuses as of 03/05/2022) [facility] [...] of this encounter (statuses as of 03/05/2022) [facility] [...] of this encounter (statuses as of 03/05/2022) [facility] [...] of this encounter (statuses as of 03/06/2022) [facility] [...] of this encounter (statuses as of 03/06/2022) [facility] [...] of this encounter (statuses as of 03/08/2022) [facility] [...] of this encounter (statuses as of 03/10/2022) [facility] [...] of this encounter (statuses as of 03/16/2022) [facility] [...] of this encounter (statuses as of 03/18/2022) [facility] [...] of this encounter (statuses as of 03/19/2022) [facility] [...] of this encounter (statuses as of 03/22/2022) [facility] [...] of this encounter (statuses as of 04/17/2022) [facility] [...] of this encounter (statuses as of 04/22/2022) [facility] [...] of this encounter (statuses as of 04/22/2022) [facility] [...] of this encounter (statuses as of 04/23/2022) [facility] [...] of this encounter (statuses as of 04/24/2022) [facility] [...] of this encounter (statuses as of 04/25/2022) [facility] [...] of this encounter (statuses as of 04/28/2022) [facility] [...] of this encounter (statuses as of 04/29/2022) [facility] [...] of this encounter (statuses as of 05/02/2022) [facility] [...] of this encounter (statuses as of 05/03/2022) [facility] [...] of this encounter (statuses as of 05/06/2022) [facility] [...] of this encounter (statuses as of 05/06/2022) [facility] [...] of this encounter (statuses as of 05/07/2022) [facility] [...] of this encounter (statuses as of 05/07/2022) [facility] [...] of this encounter (statuses as of 05/12/2022) [facility] [...] of this encounter (statuses as of 05/13/2022) [facility] [...] of this encounter (statuses as of 05/13/2022) [facility] [...] of this encounter (statuses as of 05/15/2022) [facility] [...] of this encounter (statuses as of 05/21/2022) [facility] [...] of this encounter (statuses as of 05/22/2022) [facility] [...] of this encounter (statuses as of 05/22/2022) [facility] [...] of this encounter (statuses as of 05/23/2022) [facility] [...] of this encounter (statuses as of 05/23/2022) [facility] [...] of this encounter (statuses as of 05/26/2022) [facility] [...] of this encounter (statuses as of 05/29/2022) [facility] [...] of this encounter (statuses as of 05/30/2022) [facility] [...] of this encounter (statuses as of 05/30/2022) [facility] [...] of this encounter (statuses as of 06/04/2022) [facility] [...] of this encounter (statuses as of 06/06/2022) [facility] [...] of this encounter (statuses as of 06/13/2022) [facility] [...] of this encounter (statuses as of 06/19/2022) [facility] [...] of this encounter (statuses as of 06/20/2022) [facility] [...] of this encounter (statuses as of 06/20/2022) [facility] [...] of this encounter (statuses as of 06/20/2022) [facility] [...] of this encounter (statuses as of 07/03/2022) [facility] [...] of this encounter (statuses as of 07/04/2022) [facility] [...] of this encounter (statuses as of 07/09/2022) [facility] [...] of this encounter (statuses as of 07/10/2022) [facility] [...] of this encounter (statuses as of 07/10/2022) [facility] [...] of this encounter (statuses as of 07/17/2022) [facility] [...] of this encounter (statuses as of 07/21/2022) [facility] [...] of this encounter (statuses as of 07/24/2022) [facility] [...] of this encounter (statuses as of 07/24/2022) [facility] [...] of this encounter (statuses as of 07/30/2022) [facility] [...] of this encounter (statuses as of 07/31/2022) [facility] [...] of this encounter (statuses as of 08/05/2022) [facility] [...] of this encounter (statuses as of 09/03/2022) [facility] [...] of this encounter (statuses as of 09/18/2022) [facility] [...] of this encounter (statuses as of 09/18/2022) [facility] [...] of this encounter (statuses as of 09/20/2022) [facility] [...] of this encounter (statuses as of 09/22/2022) [facility] [...] of this encounter (statuses as of 10/01/2022) [facility] [...] of this encounter (statuses as of 10/15/2022) [facility] [...] of this encounter (statuses as of 10/20/2022) [facility] [...] of this encounter (statuses as of 10/27/2022) [facility] [...] of this encounter (statuses as of 10/28/2022) [facility] [...] of this encounter (statuses as of 10/28/2022) [facility] [...] of this encounter (statuses as of 10/29/2022) [facility] [...] of this encounter (statuses as of 10/31/2022) [facility] [...] of this encounter (statuses as of 11/08/2022) [facility] [...] of this encounter (statuses as of 11/11/2022) [facility] [...] of this encounter (statuses as of 11/11/2022) [facility] [...] of this encounter (statuses as of 11/12/2022) [facility] [...] of this encounter (statuses as of 11/12/2022) [facility] [...] of this encounter (statuses as of 11/13/2022) [facility] [...] of this encounter (statuses as of 11/18/2022) [facility] Narrative* [...] of this encounter (statuses as of 11/18/2022) [facility] Narrative* [...] of this encounter (statuses as of 11/22/2022) [facility] Narrative* [...] of this encounter (statuses as of 11/28/2022) [facility] Narrative* [...] of this encounter (statuses as of 12/04/2022) [facility] Narrative* [...] of this encounter (statuses as of 12/06/2022) [facility] Narrative* [...] of this encounter (statuses as of 12/13/2022) [facility] Narrative* [...] of this encounter (statuses as of 12/15/2022) [facility] Narrative* [...] of this encounter (statuses as of 12/17/2022) [facility] Narrative* [...] of this encounter (statuses as of 12/17/2022) [facility] Narrative* [...] of this encounter (statuses as of 12/17/2022) [facility] Narrative* [...] of this encounter (statuses as of 12/19/2022) [facility] Narrative* [...] of this encounter (statuses as of 12/30/2022) [facility] Narrative* [...] of this encounter (statuses as of 12/30/2022) [facility] Narrative* [...] of this encounter (statuses as of 01/02/2023) [facility] Narrative* [...] of this encounter (statuses as of 01/03/2023) [facility] Narrative* [...] of this encounter (statuses as of 01/03/2023) [facility] Narrative* [...] of this encounter (statuses as of 01/08/2023) [facility] Narrative* [...] of this encounter (statuses as of 01/09/2023) [facility] Narrative* [...] of this encounter (statuses as of 02/10/2023) [facility] Narrative* [...] of this encounter (statuses as of 02/10/2023) [facility] Narrative* [...] of this encounter (statuses as of 02/11/2023) [facility] N[facility]ative* [...] of this encounter (statuses as of 02/17/2023) [facility] Narrative* [...] of this encounter (statuses as of 02/20/2023) [facility] Narrative* [...] of this encounter (statuses as of 02/24/2023) [facility] Narrative* [...] of this encounter (statuses as of 02/25/2023) [facility] Narrative* [...] of this encounter (statuses as of 03/03/2023) [facility] Narrative* [...] of this encounter (statuses as of 03/12/2023) [facility] Diagnosis Anticoagulated on Coumadin- Primary Encounter for therapeutic drug monitoring Paroxysmal atrial fibrillation (HCC) [facility] Bronchitis- Primary Bronchitis, not specified as acute or chronic [facility] Diagnosis Anticoagulated on Coumadin- Primary Encounter for therapeutic drug monitoring Paroxysmal atrial fibrillation (HCC) Atrial fibrillation [facility] Diagnosis Cellulitis of skin- Primary Cellulitis and abscess of unspecified site Left hand pain Pain in limb [facility] Diagnosis Type 2 diabetes mellitus with diabetic neuropathy, with long-term current use of insulin (HCC) [facility] Diagnosis Need for vaccination- Primary Need for prophylactic vaccination and inoculation against unspecified single disease [facility] Diagnosis Age-related physical debility- [...] obesity type (HCC) [facility] Diagnosis Age-related physical debility- Primary Senility without mention of psychosis Mobility impaired Other ill-defined conditions At moderate risk for fall Personal history of fall Acute on chronic HFrEF (heart failure with reduced ejection fraction) ([facility]) Class 3 severe obesity with serious [...] osteoarthrosis, lower leg [facility] Diagnosis Subsequent non-ST elevation (NSTEMI) myocardial infarction within 4 weeks of initial infarction (HCC) [facility] Diagnosis Anticoagulated on Coumadin- Primary Encounter for therapeutic drug monitoring Paroxysmal atrial fibrillation (HCC) Atrial fibrillation [facility] Diagnosis Chronic combined systolic and diastolic congestive heart failure (HCC)- Primary Chronic combined systolic and diastolic heart failure documented in this encounter [facility]* Diagnosis Anticoagulated on Coumadin- Primary Encounter for therapeutic drug monitoring Paroxysmal atrial fibrillation (HCC) Atrial fibrillation documented in this encounter [facility]* Diagnosis Type 2 diabetes mellitus with diabetic neuropathy, with long-term current use of insulin ([facility]) documented in this encounter [facility] note* Diagnosis Type 2 diabetes mellitus with diabetic neuropathy, with long-term current use of insulin ([facility]) [facility] Diagnosis Left foot infection- Primary Unspecified local infection of skin and subcutaneous tissue documented in this encounter [facility] note* Diagnosis Chronic combined systolic and diastolic congestive heart failure (HCC)- Primary Chronic combined systolic and diastolic heart failure documented in this encounter [facility]* Diagnosis Anticoagulated on Coumadin- Primary Encounter for therapeutic drug monitoring Paroxysmal atrial fibrillation (HCC) Atrial fibrillation [facility] Diagnosis Class 3 severe obesity with serious comorbidity and body mass index (BMI) of 40.0 to 44.9 in adult, unspecified obesity type (HCC)- Primary Facet arthritis of lumbar region Lumbosacral spondylosis without myelopathy Chronic pain of both knees documented in this encounter [facility]* Diagnosis Anticoagulated on Coumadin- Primary Encounter for therapeutic drug monitoring Paroxysmal atrial fibrillation (HCC) Atrial fibrillation [facility] Diagnosis Type 2 diabetes mellitus with diabetic neuropathy, with long-term current use of insulin ([facility])- Primary documented in this encounter [facility]* Diagnosis Acute cough- Primary COVID-19 [facility] Diagnosis COVID-19 [facility]* Diagnosis Type 2 diabetes mellitus with diabetic neuropathy, with long-term current use of insulin ([facility])- Primary Restless leg syndrome Restless legs syndrome (RLS) Essential hypertension Unspecified essential hypertension Hyperlipidemia LDL goal <100 Other and unspecified hyperlipidemia ASHD (arteriosclerotic heart disease) Coronary atherosclerosis of unspecified type of vessel, hamilton or graft Atrial flutter, unspecified type (HCC) [...] fall Acute cough [facility] Diagnosis Paroxysmal atrial fibrillation (HCC)- Primary Atrial fibrillation Anticoagulated on Coumadin Encounter for therapeutic drug monitoring [facility] Diagnosis Anticoagulated on Coumadin- Primary Encounter for therapeutic drug monitoring Paroxysmal atrial fibrillation (HCC) Atrial [facility] Diagnosis SOB (shortness of breath)- Primary Shortness of breath [facility] Diagnosis Type 2 diabetes mellitus with diabetic neuropathy, with long-term current use of insulin (HCC)- Primary [facility] Diagnosis Chronic combined systolic and [...] Coronary atherosclerosis of unspecified type of vessel, hamilton or graft Ischemic cardiomyopathy Other specified forms of chronic ischemic heart disease Stage 3a chronic kidney disease (HCC) Anticoagulated on Coumadin Encounter for therapeutic drug monitoring Anemia, unspecified type [facility] Diagnosis Facial swelling- Primary Swelling, mass, or lump in head and neck Weight gain Abnormal weight gain [facility] Diagnosis Anticoagulated on Coumadin- Primary Encounter for therapeutic drug monitoring Paroxysmal atrial fibrillation (HCC) Atrial fibrillation [facility] Diagnosis Hospital discharge follow-up- [...] COPD type (HCC) [facility] Diagnosis Acute on chronic systolic congestive heart failure (HCC)- Primary Acute on chronic systolic heart failure Chronic obstructive pulmonary disease, unspecified COPD type (HCC) [facility] Diagnosis Chronic combined systolic and diastolic congestive heart failure (HCC)- Primary Chronic combined systolic and diastolic heart failure Chronic obstructive pulmonary disease, unspecified COPD type (HCC) [facility] Diagnosis Type 2 diabetes mellitus with peripheral neuropathy (HCC) [facility] Diagnosis Essential hypertension- Primary Unspecified essential hypertension Chronic combined systolic and diastolic congestive heart failure (HCC) Chronic combined systolic and diastolic heart failure Stage 3a chronic kidney disease (HCC) [facility] Diagnosis Dysuria- Primary Blood in the stool Blood in stool Anemia, unspecified type Paroxysmal atrial fibrillation (HCC) Atrial [facility] Diagnosis Anticoagulated on Coumadin- Primary Encounter for therapeutic drug monitoring Paroxysmal atrial fibrillation (HCC) Atrial fibrillation [facility] Diagnosis Acute cystitis with hematuria- Primary Acute cystitis [facility] Diagnosis Chronic combined systolic and diastolic congestive heart failure (HCC)- Primary Chronic combined systolic and diastolic heart failure Chronic obstructive pulmonary disease, unspecified COPD type (HCC) Diarrhea, unspecified type [facility] Diagnosis Anticoagulated on Coumadin- Primary Encounter for therapeutic drug monitoring Paroxysmal atrial fibrillation (HCC) Atrial fibrillation [facility] Diagnosis Type 2 diabetes mellitus with diabetic neuropathy, with long-term current use of insulin ([facility]) documented in this encounter [facility]* Diagnosis Cough, unspecified type- Primary SOB (shortness of breath) Shortness of breath documented in this encounter [facility]* Diagnosis Type 2 diabetes mellitus with diabetic neuropathy, with long-term current use of insulin (HCC)- Primary Restless leg syndrome Restless legs syndrome (RLS) Essential hypertension Unspecified essential hypertension Paroxysmal atrial fibrillation (HCC) Atrial fibrillation ASHD (arteriosclerotic heart disease) Coronary atherosclerosis of unspecified type of vessel, hamilton or graft JESSICA (obstructive sleep apnea) Obstructive sleep apnea (adult) (pediatric) Gastroesophageal reflux disease, unspecified whether esophagitis present Type 2 diabetes mellitus with stage 3a chronic kidney disease, with long-term current use of insulin ([facility]) Chronic combined systolic and diastolic congestive heart failure (HCC) Chronic combined systolic and diastolic heart failure Sleeping difficulty Sleep disturbance, unspecified Stage 3a chronic kidney disease (HCC) [facility] Diagnosis Chronic pain of right knee- Primary Primary osteoarthritis of right knee Primary localized osteoarthrosis, lower leg [facility] Diagnosis Anticoagulated on Coumadin- Primary Encounter for therapeutic drug monitoring Paroxysmal atrial fibrillation (HCC) Atrial fibrillation [facility]* Diagnosis Type 2 diabetes mellitus with diabetic neuropathy, with long-term current use of insulin ([facility])- Primary documented in this encounter [facility]* Diagnosis Type 2 diabetes mellitus with diabetic neuropathy, with long-term current use of insulin (HCC) Type 2 diabetes mellitus with diabetic neuropathy, with long-term current use of insulin (HCC)- Primary Restless leg syndrome Restless legs syndrome (RLS) Essential hypertension Unspecified essential hypertension Paroxysmal atrial fibrillation (HCC) Atrial fibrillation ASHD (arteriosclerotic heart disease) Coronary atherosclerosis of unspecified type of vessel, hamilton or graft JESSICA (obstructive sleep apnea) Obstructive sleep apnea (adult) (pediatric) [facility]* Diagnosis Type 2 diabetes mellitus with diabetic neuropathy, with long-term current use of insulin (HCC)- Primary Essential hypertension Unspecified essential hypertension ASHD (arteriosclerotic heart disease) Coronary atherosclerosis of unspecified type of vessel, hamilton or graft Paroxysmal atrial fibrillation (HCC) Atrial fibrillation JESSICA (obstructive sleep apnea) Obstructive sleep apnea (adult) (pediatric) Restless leg syndrome Restless legs syndrome (RLS) Situational depression Adjustment disorder with depressed mood [facility] Diagnosis Anticoagulated on Coumadin- Primary Encounter for therapeutic drug monitoring Paroxysmal atrial fibrillation (HCC) Atrial fibrillation [facility] Diagnosis Anticoagulated on Coumadin- Primary Encounter for therapeutic drug monitoring Paroxysmal atrial fibrillation (HCC) Atrial fibrillation [facility] Diagnosis Black stool- Primary Nonspecific abnormal finding in stool contents History of colonic polyps Personal history of colonic polyps History of gastritis Personal history of other diseases of digestive system Pacemaker Cardiac pacemaker in situ Petit's esophagus with esophagitis Petit's esophagus Anemia, unspecified type History of GI bleed Personal history of other diseases of digestive system [facility] Diagnosis Black stool- Primary Nonspecific abnormal finding in stool contents History of colonic polyps Personal history of colonic polyps History of gastritis Personal history of other diseases of digestive system Pacemaker Cardiac pacemaker in situ Petit's esophagus with esophagitis Petit's esophagus Anemia, unspecified type History of GI bleed Personal history of other diseases of digestive system [facility]* Diagnosis Type 2 diabetes mellitus with diabetic neuropathy, with long-term current use of insulin ([facility])- Primary [facility]* Diagnosis Restless leg syndrome Restless legs syndrome (RLS) [facility] Diagnosis Anticoagulated on Coumadin- Primary Encounter for therapeutic drug monitoring Paroxysmal atrial fibrillation (HCC) Atrial fibrillation [facility]* Diagnosis Type 2 diabetes mellitus with diabetic neuropathy, with long-term current use of insulin ([facility]) [facility] Diagnosis Anticoagulated on Coumadin- Primary Encounter for therapeutic drug monitoring Paroxysmal atrial fibrillation (HCC) Atrial fibrillation [facility] Diagnosis Hospital discharge follow-up- Primary Other [...] kidney disease (HCC) [facility] Diagnosis Dysuria- Primary [facility] Diagnosis Urinary tract infection without hematuria, site unspecified- Primary [facility]* Diagnosis Weight gain Abnormal weight gain SOB (shortness of breath) Shortness of breath Chronic atrial fibrillation (HCC) Atrial fibrillation [facility]* Diagnosis Type 2 diabetes mellitus with stage 3a chronic kidney disease, with long-term current use of insulin (HCC)- Primary Type 2 diabetes mellitus with diabetic neuropathy, with long-term current use of insulin (HCC) [facility]* Diagnosis Dysuria- Primary [facility]* Diagnosis Chronic combined systolic and diastolic congestive heart failure (HCC)- Primary Chronic combined systolic and diastolic heart failure Chronic obstructive pulmonary disease, unspecified COPD type (HCC) [facility]* Diagnosis SOB (shortness of breath)- Primary Shortness of breath Essential hypertension Unspecified essential hypertension Paroxysmal atrial fibrillation (HCC) Atrial fibrillation Anticoagulated on Coumadin Encounter for therapeutic drug monitoring ASHD (arteriosclerotic heart disease) Coronary atherosclerosis of unspecified type of vessel, hamilton or graft Hyperlipidemia LDL goal <100 Other and unspecified hyperlipidemia Ischemic cardiomyopathy Other specified forms of chronic ischemic heart disease Type 2 diabetes mellitus with diabetic neuropathy, with long-term current use of insulin (HCC) [facility]* Diagnosis Type 2 diabetes mellitus with diabetic neuropathy, with long-term current use of insulin (HCC) Weight gain Abnormal weight gain SOB (shortness of breath) Shortness of breath [facility] Diagnosis Anticoagulated on Coumadin- Primary Encounter for therapeutic drug monitoring Paroxysmal atrial fibrillation (HCC) Atrial fibrillation [facility] Diagnosis Anticoagulated on Coumadin- Primary Encounter for therapeutic drug monitoring Paroxysmal atrial fibrillation (HCC) Atrial fibrillation documented in this encounter [facility] for referral (narrative)* Diagnostic Procedure Only (Routine) - Pending Review Specialty Diagnoses / Procedures Referred By Contac t Referred To Contact XR IMAGING Diagnoses Left hand pain Procedures XR HAND GENERAL 3V PA/LAT/OBL LEFT RADEX HAND MINIMUM 3 VIEWS Shereen Holt APRN.DAIRY CHEMIST [address] [place] [address] Xr Imaging Referral ID Status Reason Start Date Expiration Date Visits Requested Visits Authorized [id number] Pending Review Auto-Generat ed Referral 07/17/2021 08/16/2022 1 1 * Consult, Test, Treat (Routine) - Authorized Specialty Diagnoses / Procedures Referred By Contac t Referred To Contact Orthopedics Diagnoses Left hand pain Procedures CONSULT TO ORTHOPAEDICS OFFICE/OUTPATIENT [facility] MDM 60-74 MINUTES Shereen Holt APRN.DAIRY CHEMIST [address] [place] [address] Referral ID Status Reason Start Date Expiration Date Visits Requested Visits Authorized [id number] Authorized PCP Requested Referral 07/17/2021 07/17/2022 1 1 [facility] Summary Purpose Family History No [...] 45 MINS Ramiro Null, SHANELLE.RODRIGUEZ, DNP [address] [place] [address] [facility] [address] [address] Referral ID Status Reason Start Date Expiration Date Visits Requested Visits Authorized [id number] Authorized PCP Requested Referral Auto-Generate d Referral 08/05/2021 07/29/2022 99 99 Specialty Diagnoses / Procedures Referred By Contac t Referred To Contact [facility] Diagnoses At moderate risk for fall Mobility impaired Age-related physical debility Procedures CONSULT TO PHYSICAL THERAPY PHYSICAL THERAPY EVALUATION HIGH COMPLEX 45 MINS Ramiro Null, GRAILS WEB APPLICATION DEVELOPER.RODRIGUEZ, FAIZA [address] [place] [address] [facility] [address] [address] Referral ID Status Reason Start Date Expiration Date Visits Requested Visits Authorized [id number] Authorized PCP Requested Referral Auto-Generate d Referral 08/16/2021 08/09/2022 99 99 Specialty Diagnoses / Procedures Referred By Contac t Referred To Contact Diagnoses COVID-19 Procedures COVID TREATMENT REFERRAL COVID TREATMENT REFERRAL Becky Mccarthy, GRAIL[employer] WEB APPLICATION DEVELOPER.DAIRY CHEMIST [address] [place] [address] Referral ID Status Reason Start Date Expiration Date Visits Requested Visits Authorized [id number] Pending Review Auto-Generat ed Referral 01/21/2023 1 1 Specialty Diagnoses / Procedures Referred By Contac t Referred To Contact General Surgery Diagnoses Blood in the stool Procedures CONSULT TO GENERAL SURGERY OFFICE/OUTPATIENT [facility] MDM 60-74 MINUTES Shereen Holt, GRA[employer] WE[employer] APPLICATION DEVELOPER.DAIRY CHEMIST [address] [place] [address] Referral ID Status Reason Start Date Expiration Date Visits Requested Visits Authorized [id number] Authorized PCP Requested Referral 05/05/2022 05/05/2023 1 1 Specialty Diagnoses / Procedures Referred By Kendra harrison Referred To Contact Diagnoses Black stool History of colonic polyps History of gastritis Pacemaker Petit's esophagus with esophagitis History of GI bleed Procedures REFER TO PACC - PRE ANESTHESIA CONSULTATION CLINIC OFFICE/OUTPATIENT [facility] MDM 60-74 MINUTES Cristina Rausch PA-C [address] [place] [address] Referral ID Status Reason Start Date Expiration Date Visits Requested Visits Authorized [id number] Authorized PCP Requested Referral 10/20/2022 10/20/2023 1 1 Specialty Diagnoses / Procedures Referred By Kendra harrison Referred To Contact [facility] Diagnoses Black stool History of colonic polyps History of gastritis Pacemaker Petit's esophagus with esophagitis Anemia, unspecified type History of GI bleed Procedures EGD DIAGNOSTIC ESOPHAGOGASTRODUODENOSC OPY TRANSORAL [facility] Cristina Rausch PA-C [address] [place] [address] [facility] [address] [address] Referral ID Status Reason Start Date Expiration Date Visits Requested Visits Authorized [id number] Authorized Auto-Generat ed Referral 10/20/2022 10/21/2023 1 1 Specialty Diagnoses / Procedures Referred By Kendra harrison Referred To Contact [facility] Diagnoses Black stool History of colonic polyps History of gastritis Pacemaker Petit's esophagus with esophagitis Anemia, unspecified type History of GI bleed Procedures COLONOSCOPY DIAGNOSTIC COLONOSCOPY FLX DX W/COLLJ SPEC WHEN PFRMD Cristina Rausch PA-C [address] [place] [address] [address] Referral ID Status Reason Start Date Expiration Date Visits Requested Visits Authorized [id number] Authorized Auto-Generat ed Referral 10/20/2022 10/21/2023 1 [...] DATE CREATED AUTHOR AUTHOR'S ORGANIZ ATION 11/22/2021 [facility] DATE CREATED AUTHOR AUTHOR'S ORGANIZ ATION 01/27/2022 [facility] DATE CREATED AUTHOR AUTHOR'S ORGANIZ ATION 04/17/2023 [facility] Source Comments (unrecognize d section and content) In the event this informatio n is protected by the Federal Confidentiality of Alcohol and Drug Abuse Patient Records regulations: The Federal rules restrict any use of the information to criminally investigate or prosecute any alcohol or drug abuse patient.[facility] Hospital[facility] the event this information is protected by the Federal Confidentiality of Alcohol and Drug Abuse Patient Records regulations: The Federal rules restrict any use of the information to criminally investigate or prosecute any alcohol or drug abuse patient.[facility] HospitalIn the event this information is protected by the Federal Confidentiality of Alcohol and Drug Abuse Patient Records regulations: The Federal rules restrict any use of the information to criminally investigate or prosecute any alcohol or drug abuse patient.[facility] HospitalIn the event this information is protected by the Federal Confidentiality of Alcohol and Drug Abuse Patient Records regulations: The Federal rules restrict any use of the information to criminally investigate or prosecute any alcohol or drug abuse patient.[facility] HospitalIn the event this information is protected by the Federal Confidentiality of Alcohol and Drug Abuse Patient Records regulations: The Federal rules restrict any use of the information to criminally investigate or prosecute any alcohol or drug abuse patient.[facility] HospitalIn the event this information is protected by the Federal Confidentiality of Alcohol and Drug Abuse Patient Records regulations: The Federal rules restrict any use of the information to criminally investigate or prosecute any alcohol or drug abuse patient.[facility] HospitalIn the event this information is protected by the Federal Confidentiality of Alcohol and Drug Abuse Patient Records regulations: The Federal rules restrict any use of the information to criminally investigate or prosecute any alcohol or drug abuse patient.[facility] HospitalIn the event this information is protected by the Federal Confidentiality of Alcohol and Drug Abuse Patient Records regulations: The Federal rules restrict any use of the information to criminally investigate or prosecute any alcohol or drug abuse patient.[facility] HospitalIn the event this information is protected by the Federal Confidentiality of Alcohol and Drug Abuse Patient Records regulations: The Federal rules restrict any use of the information to criminally investigate or prosecute any alcohol or drug abuse patient.[facility] HospitalIn the event this information is protected by the Federal Confidentiality of Alcohol and Drug Abuse Patient Records regulations: The Federal rules restrict any use of the information to criminally investigate or prosecute any alcohol or drug abuse patient.[facility] HospitalIn the event this information is protected by the Federal Confidentiality of Alcohol and Drug Abuse Patient Records regulations: The Federal rules restrict any use of the information to criminally investigate or prosecute any alcohol or drug abuse patient.[facility] HospitalIn the event this information is protected by the Federal Confidentiality of Alcohol and Drug Abuse Patient Records regulations: The Federal rules restrict any use of the information to criminally investigate or prosecute any alcohol or drug abuse patient.[facility] HospitalIn the event this information is protected by the Federal Confidentiality of Alcohol and Drug Abuse Patient Records regulations: The Federal rules restrict any use of the information to criminally investigate or prosecute any alcohol or drug abuse patient.[facility] HospitalIn the event this information is protected by the Federal Confidentiality of Alcohol and Drug Abuse Patient Records regulations: The Federal rules restrict any use of the information to criminally investigate or prosecute any alcohol or drug abuse patient.[facility] HospitalIn the event this information is protected by the Federal Confidentiality of Alcohol and Drug Abuse Patient Records regulations: The Federal rules restrict any use of the information to criminally investigate or prosecute any alcohol or drug abuse patient.[facility] HospitalIn the event this information is protected by the Federal Confidentiality of Alcohol and Drug Abuse Patient Records regulations: The Federal rules restrict any use of the information to criminally investigate or prosecute any alcohol or drug abuse patient.[facility] HospitalIn the event this information is protected by the Federal Confidentiality of Alcohol and Drug Abuse Patient Records regulations: The Federal rules restrict any use of the information to criminally investigate or prosecute any alcohol or drug abuse patient.[facility] HospitalIn the event this information is protected by the Federal Confidentiality of Alcohol and Drug Abuse Patient Records regulations: The Federal rules restrict any use of the information to criminally investigate or prosecute any alcohol or drug abuse patient.[facility] HospitalIn the event this information is protected by the Federal Confidentiality of Alcohol and Drug Abuse Patient Records regulations: The Federal rules restrict any use of the information to criminally investigate or prosecute any alcohol or drug abuse patient.[facility] HospitalIn the event this information is protected by the Federal Confidentiality of Alcohol and Drug Abuse Patient Records regulations: The Federal rules restrict any use of the information to criminally investigate or prosecute any alcohol or drug abuse patient.[facility] HospitalIn the event this information is protected by the Federal Confidentiality of Alcohol and Drug Abuse Patient Records regulations: The Federal rules restrict any use of the information to criminally investigate or prosecute any alcohol or drug abuse patient.[facility] HospitalIn the event this information is protected by the Federal Confidentiality of Alcohol and Drug Abuse Patient Records regulations: The Federal rules restrict any use of the information to criminally investigate or prosecute any alcohol or drug abuse patient.[facility] HospitalIn the event this information is protected by the Federal Confidentiality of Alcohol and Drug Abuse Patient Records regulations: The Federal rules restrict any use of the information to criminally investigate or prosecute any alcohol or drug abuse patient.[facility] HospitalIn the event this information is protected by the Federal Confidentiality of Alcohol and Drug Abuse Patient Records regulations: The Federal rules restrict any use of the information to criminally investigate or prosecute any alcohol or drug abuse patient.[facility] HospitalIn the event this information is protected by the Federal Confidentiality of Alcohol and Drug Abuse Patient Records regulations: The Federal rules restrict any use of the information to criminally investigate or prosecute any alcohol or drug abuse patient.[facility] HospitalIn the event this information is protected by the Federal Confidentiality of Alcohol and Drug Abuse Patient Records regulations: The Federal rules restrict any use of the information to criminally investigate or prosecute any alcohol or drug abuse patient.[facility] HospitalIn the event this information is protected by the Federal Confidentiality of Alcohol and Drug Abuse Patient Records regulations: The Federal rules restrict any use of the information to criminally investigate or prosecute any alcohol or drug abuse patient.[facility] HospitalIn the event this information is protected by the Federal Confidentiality of Alcohol and Drug Abuse Patient Records regulations: The Federal rules restrict any use of the information to criminally investigate or prosecute any alcohol or drug abuse patient.[facility] HospitalIn the event this information is protected by the Federal Confidentiality of Alcohol and Drug Abuse Patient Records regulations: The Federal rules restrict any use of the information to criminally investigate or prosecute any alcohol or drug abuse patient.[facility] HospitalIn the event this information is protected by the Federal Confidentiality of Alcohol and Drug Abuse Patient Records regulations: The Federal rules restrict any use of the information to criminally investigate or prosecute any alcohol or drug abuse patient.[facility] HospitalIn the event this information is protected by the Federal Confidentiality of Alcohol and Drug Abuse Patient Records regulations: The Federal rules restrict any use of the information to criminally investigate or prosecute any alcohol or drug abuse patient.[facility] HospitalIn the event this information is protected by the Federal Confidentiality of Alcohol and Drug Abuse Patient Records regulations: The Federal rules restrict any use of the information to criminally investigate or prosecute any alcohol or drug abuse patient.[facility] HospitalIn the event this information is protected by the Federal Confidentiality of Alcohol and Drug Abuse Patient Records regulations: The Federal rules restrict any use of the information to criminally investigate or prosecute any alcohol or drug abuse patient.[facility] HospitalIn the event this information is protected by the Federal Confidentiality of Alcohol and Drug Abuse Patient Records regulations: The Federal rules restrict any use of the information to criminally investigate or prosecute any alcohol or drug abuse patient.[facility] HospitalIn the event this information is protected by the Federal Confidentiality of Alcohol and Drug Abuse Patient Records regulations: The Federal rules restrict any use of the information to criminally investigate or prosecute any alcohol or drug abuse patient.[facility] HospitalIn the event this information is protected by the Federal Confidentiality of Alcohol and Drug Abuse Patient Records regulations: The Federal rules restrict any use of the information to criminally investigate or prosecute any alcohol or drug abuse patient.[facility] HospitalIn the event this information is protected by the Federal Confidentiality of Alcohol and Drug Abuse Patient Records regulations: The Federal rules restrict any use of the information to criminally investigate or prosecute any alcohol or drug abuse patient.[facility] HospitalIn the event this information is protected by the Federal Confidentiality of Alcohol and Drug Abuse Patient Records regulations: The Federal rules restrict any use of the information to criminally investigate or prosecute any alcohol or drug abuse patient.[facility] HospitalIn the event this information is protected by the Federal Confidentiality of Alcohol and Drug Abuse Patient Records regulations: The Federal rules restrict any use of the information to criminally investigate or prosecute any alcohol or drug abuse patient.[facility] HospitalIn the event this information is protected by the Federal Confidentiality of Alcohol and Drug Abuse Patient Records regulations: The Federal rules restrict any use of the information to criminally investigate or prosecute any alcohol or drug abuse patient.[facility] HospitalIn the event this information is protected by the Federal Confidentiality of Alcohol and Drug Abuse Patient Records regulations: The Federal rules restrict any use of the information to criminally investigate or prosecute any alcohol or drug abuse patient.[facility] HospitalIn the event this information is protected by the Federal Confidentiality of Alcohol and Drug Abuse Patient Records regulations: The Federal rules restrict any use of the information to criminally investigate or prosecute any alcohol or drug abuse patient.[facility] HospitalIn the event this information is protected by the Federal Confidentiality of Alcohol and Drug Abuse Patient Records regulations: The Federal rules restrict any use of the information to criminally investigate or prosecute any alcohol or drug abuse patient.[facility] HospitalIn the event this information is protected by the Federal Confidentiality of Alcohol and Drug Abuse Patient Records regulations: The Federal rules restrict any use of the information to criminally investigate or prosecute any alcohol or drug abuse patient.[facility] HospitalIn the event this information is protected by the Federal Confidentiality of Alcohol and Drug Abuse Patient Records regulations: The Federal rules restrict any use of the information to criminally investigate or prosecute any alcohol or drug abuse patient.[facility] HospitalIn the event this information is protected by the Federal Confidentiality of Alcohol and Drug Abuse Patient Records regulations: The Federal rules restrict any use of the information to criminally investigate or prosecute any alcohol or drug abuse patient.[facility] HospitalIn the event this information is protected by the Federal Confidentiality of Alcohol and Drug Abuse Patient Records regulations: The Federal rules restrict any use of the information to criminally investigate or prosecute any alcohol or drug abuse patient.[facility] HospitalIn the event this information is protected by the Federal Confidentiality of Alcohol and Drug Abuse Patient Records regulations: The Federal rules restrict any use of the information to criminally investigate or prosecute any alcohol or drug abuse patient.[facility] HospitalIn the event this information is protected by the Federal Confidentiality of Alcohol and Drug Abuse Patient Records regulations: The Federal rules restrict any use of the information to criminally investigate or prosecute any alcohol or drug abuse patient.[facility] HospitalIn the event this information is protected by the Federal Confidentiality of Alcohol and Drug Abuse Patient Records regulations: The Federal rules restrict any use of the information to criminally investigate or prosecute any alcohol or drug abuse patient.[facility] HospitalIn the event this information is protected by the Federal Confidentiality of Alcohol and Drug Abuse Patient Records regulations: The Federal rules restrict any use of the information to criminally investigate or prosecute any alcohol or drug abuse patient.[facility] HospitalIn the event this information is protected by the Federal Confidentiality of Alcohol and Drug Abuse Patient Records regulations: The Federal rules restrict any use of the information to criminally investigate or prosecute any alcohol or drug abuse patient.[facility] HospitalIn the event this information is protected by the Federal Confidentiality of Alcohol and Drug Abuse Patient Records regulations: The Federal rules restrict any use of the information to criminally investigate or prosecute any alcohol or drug abuse patient.[facility] HospitalIn the event this information is protected by the Federal Confidentiality of Alcohol and Drug Abuse Patient Records regulations: The Federal rules restrict any use of the information to criminally investigate or prosecute any alcohol or drug abuse patient.[facility] HospitalIn the event this information is protected by the Federal Confidentiality of Alcohol and Drug Abuse Patient Records regulations: The Federal rules restrict any use of the information to criminally investigate or prosecute any alcohol or drug abuse patient.[facility] HospitalIn the event this information is protected by the Federal Confidentiality of Alcohol and Drug Abuse Patient Records regulations: The Federal rules restrict any use of the information to criminally investigate or prosecute any alcohol or drug abuse patient.[facility] HospitalIn the event this information is protected by the Federal Confidentiality of Alcohol and Drug Abuse Patient Records regulations: The Federal rules restrict any use of the information to criminally investigate or prosecute any alcohol or drug abuse patient.[facility] HospitalIn the event this information is protected by the Federal Confidentiality of Alcohol and Drug Abuse Patient Records regulations: The Federal rules restrict any use of the information to criminally investigate or prosecute any alcohol or drug abuse patient.[facility] HospitalIn the event this information is protected by the Federal Confidentiality of Alcohol and Drug Abuse Patient Records regulations: The Federal rules restrict any use of the information to criminally investigate or prosecute any alcohol or drug abuse patient.[facility] HospitalIn the event this information is protected by the Federal Confidentiality of Alcohol and Drug Abuse Patient Records regulations: The Federal rules restrict any use of the information to criminally investigate or prosecute any alcohol or drug abuse patient.[facility] HospitalIn the event this information is protected by the Federal Confidentiality of Alcohol and Drug Abuse Patient Records regulations: The Federal rules restrict any use of the information to criminally investigate or prosecute any alcohol or drug abuse patient.[facility] HospitalIn the event this information is protected by the Federal Confidentiality of Alcohol and Drug Abuse Patient Records regulations: The Federal rules restrict any use of the information to criminally investigate or prosecute any alcohol or drug abuse patient.[facility] HospitalIn the event this information is protected by the Federal Confidentiality of Alcohol and Drug Abuse Patient Records regulations: The Federal rules restrict any use of the information to criminally investigate or prosecute any alcohol or drug abuse patient.[facility] HospitalIn the event this information is protected by the Federal Confidentiality of Alcohol and Drug Abuse Patient Records regulations: The Federal rules restrict any use of the information to criminally investigate or prosecute any alcohol or drug abuse patient.[facility] HospitalIn the event this information is protected by the Federal Confidentiality of Alcohol and Drug Abuse Patient Records regulations: The Federal rules restrict any use of the information to criminally investigate or prosecute any alcohol or drug abuse patient.[facility] HospitalIn the event this information is protected by the Federal Confidentiality of Alcohol and Drug Abuse Patient Records regulations: The Federal rules restrict any use of the information to criminally investigate or prosecute any alcohol or drug abuse patient.[facility] HospitalIn the event this information is protected by the Federal Confidentiality of Alcohol and Drug Abuse Patient Records regulations: The Federal rules restrict any use of the information to criminally investigate or prosecute any alcohol or drug abuse patient.[facility] HospitalIn the event this information is protected by the Federal Confidentiality of Alcohol and Drug Abuse Patient Records regulations: The Federal rules restrict any use of the information to criminally investigate or prosecute any alcohol or drug abuse patient.[facility] HospitalIn the event this information is protected by the Federal Confidentiality of Alcohol and Drug Abuse Patient Records regulations: The Federal rules restrict any use of the information to criminally investigate or prosecute any alcohol or drug abuse patient.[facility] HospitalIn the event this information is protected by the Federal Confidentiality of Alcohol and Drug Abuse Patient Records regulations: The Federal rules restrict any use of the information to criminally investigate or prosecute any alcohol or drug abuse patient.[facility] HospitalIn the event this information is protected by the Federal Confidentiality of Alcohol and Drug Abuse Patient Records regulations: The Federal rules restrict any use of the information to criminally investigate or prosecute any alcohol or drug abuse patient.[facility] HospitalIn the event this information is protected by the Federal Confidentiality of Alcohol and Drug Abuse Patient Records regulations: The Federal rules restrict any use of the information to criminally investigate or prosecute any alcohol or drug abuse patient.[facility] HospitalIn the event this information is protected by the Federal Confidentiality of Alcohol and Drug Abuse Patient Records regulations: The Federal rules restrict any use of the information to criminally investigate or prosecute any alcohol or drug abuse patient.[facility] HospitalIn the event this information is protected by the Federal Confidentiality of Alcohol and Drug Abuse Patient Records regulations: The Federal rules restrict any use of the information to criminally investigate or prosecute any alcohol or drug abuse patient.[facility] HospitalIn the event this information is protected by the Federal Confidentiality of Alcohol and Drug Abuse Patient Records regulations: The Federal rules restrict any use of the information to criminally investigate or prosecute any alcohol or drug abuse patient.[facility] HospitalIn the event this information is protected by the Federal Confidentiality of Alcohol and Drug Abuse Patient Records regulations: The Federal rules restrict any use of the information to criminally investigate or prosecute any alcohol or drug abuse patient.[facility] HospitalIn the event this information is protected by the Federal Confidentiality of Alcohol and Drug Abuse Patient Records regulations: The Federal rules restrict any use of the information to criminally investigate or prosecute any alcohol or drug abuse patient.[facility] HospitalIn the event this information is protected by the Federal Confidentiality of Alcohol and Drug Abuse Patient Records regulations: The Federal rules restrict any use of the information to criminally investigate or prosecute any alcohol or drug abuse patient.[facility] HospitalIn the event this information is protected by the Federal Confidentiality of Alcohol and Drug Abuse Patient Records regulations: The Federal rules restrict any use of the information to criminally investigate or prosecute any alcohol or drug abuse patient.[facility] HospitalIn the event this information is protected by the Federal Confidentiality of Alcohol and Drug Abuse Patient Records regulations: The Federal rules restrict any use of the information to criminally investigate or prosecute any alcohol or drug abuse patient.[facility] HospitalIn the event this information is protected by the Federal Confidentiality of Alcohol and Drug Abuse Patient Records regulations: The Federal rules restrict any use of the information to criminally investigate or prosecute any alcohol or drug abuse patient.[facility] HospitalIn the event this information is protected by the Federal Confidentiality of Alcohol and Drug Abuse Patient Records regulations: The Federal rules restrict any use of the information to criminally investigate or prosecute any alcohol or drug abuse patient.[facility] HospitalIn the event this information is protected by the Federal Confidentiality of Alcohol and Drug Abuse Patient Records regulations: The Federal rules restrict any use of the information to criminally investigate or prosecute any alcohol or drug abuse patient.[facility] HospitalIn the event this information is protected by the Federal Confidentiality of Alcohol and Drug Abuse Patient Records regulations: The Federal rules restrict any use of the information to criminally investigate or prosecute any alcohol or drug abuse patient.[facility] HospitalIn the event this information is protected by the Federal Confidentiality of Alcohol and Drug Abuse Patient Records regulations: The Federal rules restrict any use of the information to criminally investigate or prosecute any alcohol or drug abuse patient.[facility] HospitalIn the event this information is protected by the Federal Confidentiality of Alcohol and Drug Abuse Patient Records regulations: The Federal rules restrict any use of the information to criminally investigate or prosecute any alcohol or drug abuse patient.[facility] HospitalIn the event this information is protected by the Federal Confidentiality of Alcohol and Drug Abuse Patient Records regulations: The Federal rules restrict any use of the information to criminally investigate or prosecute any alcohol or drug abuse patient.[facility] HospitalIn the event this information is protected by the Federal Confidentiality of Alcohol and Drug Abuse Patient Records regulations: The Federal rules restrict any use of the information to criminally investigate or prosecute any alcohol or drug abuse patient.[facility] HospitalIn the event this information is protected by the Federal Confidentiality of Alcohol and Drug Abuse Patient Records regulations: The Federal rules restrict any use of the information to criminally investigate or prosecute any alcohol or drug abuse patient.[facility] HospitalIn the event this information is protected by the Federal Confidentiality of Alcohol and Drug Abuse Patient Records regulations: The Federal rules restrict any use of the information to criminally investigate or prosecute any alcohol or drug abuse patient.[facility] HospitalIn the event this information is protected by the Federal Confidentiality of Alcohol and Drug Abuse Patient Records regulations: The Federal rules restrict any use of the information to criminally investigate or prosecute any alcohol or drug abuse patient.[facility] HospitalIn the event this information is protected by the Federal Confidentiality of Alcohol and Drug Abuse Patient Records regulations: The Federal rules restrict any use of the information to criminally investigate or prosecute any alcohol or drug abuse patient.[facility] HospitalIn the event this information is protected by the Federal Confidentiality of Alcohol and Drug Abuse Patient Records regulations: The Federal rules restrict any use of the information to criminally investigate or prosecute any alcohol or drug abuse patient.[facility] HospitalIn the event this information is protected by the Federal Confidentiality of Alcohol and Drug Abuse Patient Records regulations: The Federal rules restrict any use of the information to criminally investigate or prosecute any alcohol or drug abuse patient.[facility] HospitalIn the event this information is protected by the Federal Confidentiality of Alcohol and Drug Abuse Patient Records regulations: The Federal rules restrict any use of the information to criminally investigate or prosecute any alcohol or drug abuse patient.[facility] HospitalIn the event this information is protected by the Federal Confidentiality of Alcohol and Drug Abuse Patient Records regulations: The Federal rules restrict any use of the information to criminally investigate or prosecute any alcohol or drug abuse patient.[facility] HospitalIn the event this information is protected by the Federal Confidentiality of Alcohol and Drug Abuse Patient Records regulations: The Federal rules restrict any use of the information to criminally investigate or prosecute any alcohol or drug abuse patient.[facility] HospitalIn the event this information is protected by the Federal Confidentiality of Alcohol and Drug Abuse Patient Records regulations: The Federal rules restrict any use of the information to criminally investigate or prosecute any alcohol or drug abuse patient.[facility] HospitalIn the event this information is protected by the Federal Confidentiality of Alcohol and Drug Abuse Patient Records regulations: The Federal rules restrict any use of the information to criminally investigate or prosecute any alcohol or drug abuse patient.[facility] HospitalIn the event this information is protected by the Federal Confidentiality of Alcohol and Drug Abuse Patient Records regulations: The Federal rules restrict any use of the information to criminally investigate or prosecute any alcohol or drug abuse patient.[facility] HospitalIn the event this information is protected by the Federal Confidentiality of Alcohol and Drug Abuse Patient Records regulations: The Federal rules restrict any use of the information to criminally investigate or prosecute any alcohol or drug abuse patient.[facility] HospitalIn the event this information is protected by the Federal Confidentiality of Alcohol and Drug Abuse Patient Records regulations: The Federal rules restrict any use of the information to criminally investigate or prosecute any alcohol or drug abuse patient.[facility] HospitalIn the event this information is protected by the Federal Confidentiality of Alcohol and Drug Abuse Patient Records regulations: The Federal rules restrict any use of the information to criminally investigate or prosecute any alcohol or drug abuse patient.[facility] HospitalIn the event this information is protected by the Federal Confidentiality of Alcohol and Drug Abuse Patient Records regulations: The Federal rules restrict any use of the information to criminally investigate or prosecute any alcohol or drug abuse patient.[facility] HospitalIn the event this information is protected by the Federal Confidentiality of Alcohol and Drug Abuse Patient Records regulations: The Federal rules restrict any use of the information to criminally investigate or prosecute any alcohol or drug abuse patient.[facility] HospitalIn the event this information is protected by the Federal Confidentiality of Alcohol and Drug Abuse Patient Records regulations: The Federal rules restrict any use of the information to criminally investigate or prosecute any alcohol or drug abuse patient.[facility] HospitalIn the event this information is protected by the Federal Confidentiality of Alcohol and Drug Abuse Patient Records regulations: The Federal rules restrict any use of the information to criminally investigate or prosecute any alcohol or drug abuse patient.[facility] HospitalIn the event this information is protected by the Federal Confidentiality of Alcohol and Drug Abuse Patient Records regulations: The Federal rules restrict any use of the information to criminally investigate or prosecute any alcohol or drug abuse patient.[facility] HospitalIn the event this information is protected by the Federal Confidentiality of Alcohol and Drug Abuse Patient Records regulations: The Federal rules restrict any use of the information to criminally investigate or prosecute any alcohol or drug abuse patient.[facility] HospitalIn the event this information is protected by the Federal Confidentiality of Alcohol and Drug Abuse Patient Records regulations: The Federal rules restrict any use of the information to criminally investigate or prosecute any alcohol or drug abuse patient.[facility] HospitalIn the event this information is protected by the Federal Confidentiality of Alcohol and Drug Abuse Patient Records regulations: The Federal rules restrict any use of the information to criminally investigate or prosecute any alcohol or drug abuse patient.[facility] HospitalIn the event this information is protected by the Federal Confidentiality of Alcohol and Drug Abuse Patient Records regulations: The Federal rules restrict any use of the information to criminally investigate or prosecute any alcohol or drug abuse patient.[facility] HospitalIn the event this information is protected by the Federal Confidentiality of Alcohol and Drug Abuse Patient Records regulations: The Federal rules restrict any use of the information to criminally investigate or prosecute any alcohol or drug abuse patient.[facility] HospitalIn the event this information is protected by the Federal Confidentiality of Alcohol and Drug Abuse Patient Records regulations: The Federal rules restrict any use of the information to criminally investigate or prosecute any alcohol or drug abuse patient.[facility] HospitalIn the event this information is protected by the Federal Confidentiality of Alcohol and Drug Abuse Patient Records regulations: The Federal rules restrict any use of the information to criminally investigate or prosecute any alcohol or drug abuse patient.[facility] HospitalIn the event this information is protected by the Federal Confidentiality of Alcohol and Drug Abuse Patient Records regulations: The Federal rules restrict any use of the information to criminally investigate or prosecute any alcohol or drug abuse patient.[facility] HospitalIn the event this information is protected by the Federal Confidentiality of Alcohol and Drug Abuse Patient Records regulations: The Federal rules restrict any use of the information to criminally investigate or prosecute any alcohol or drug abuse patient.[facility] HospitalIn the event this information is protected by the Federal Confidentiality of Alcohol and Drug Abuse Patient Records regulations: The Federal rules restrict any use of the information to criminally investigate or prosecute any alcohol or drug abuse patient.[facility] HospitalIn the event this information is protected by the Federal Confidentiality of Alcohol and Drug Abuse Patient Records regulations: The Federal rules restrict any use of the information to criminally investigate or prosecute any alcohol or drug abuse patient.[facility] HospitalIn the event this information is protected by the Federal Confidentiality of Alcohol and Drug Abuse Patient Records regulations: The Federal rules restrict any use of the information to criminally investigate or prosecute any alcohol or drug abuse patient.[facility] HospitalIn the event this information is protected by the Federal Confidentiality of Alcohol and Drug Abuse Patient Records regulations: The Federal rules restrict any use of the information to criminally investigate or prosecute any alcohol or drug abuse patient.[facility] HospitalIn the event this information is protected by the Federal Confidentiality of Alcohol and Drug Abuse Patient Records regulations: The Federal rules restrict any use of the information to criminally investigate or prosecute any alcohol or drug abuse patient.[facility] HospitalIn the event this information is protected by the Federal Confidentiality of Alcohol and Drug Abuse Patient Records regulations: The Federal rules restrict any use of the information to criminally investigate or prosecute any alcohol or drug abuse patient.[facility] HospitalIn the event this information is protected by the Federal Confidentiality of Alcohol and Drug Abuse Patient Records regulations: The Federal rules restrict any use of the information to criminally investigate or prosecute any alcohol or drug abuse patient.[facility] HospitalIn the event this information is protected by the Federal Confidentiality of Alcohol and Drug Abuse Patient Records regulations: The Federal rules restrict any use of the information to criminally investigate or prosecute any alcohol or drug abuse patient.[facility] HospitalIn the event this information is protected by the Federal Confidentiality of Alcohol and Drug Abuse Patient Records regulations: The Federal rules restrict any use of the information to criminally investigate or prosecute any alcohol or drug abuse patient.[facility] HospitalIn the event this information is protected by the Federal Confidentiality of Alcohol and Drug Abuse Patient Records regulations: The Federal rules restrict any use of the information to criminally investigate or prosecute any alcohol or drug abuse patient.[facility] HospitalIn the event this information is protected by the Federal Confidentiality of Alcohol and Drug Abuse Patient Records regulations: The Federal rules restrict any use of the information to criminally investigate or prosecute any alcohol or drug abuse patient.[facility] HospitalIn the event this information is protected by the Federal Confidentiality of Alcohol and Drug Abuse Patient Records regulations: The Federal rules restrict any use of the information to criminally investigate or prosecute any alcohol or drug abuse patient.[facility] HospitalIn the event this information is protected by the Federal Confidentiality of Alcohol and Drug Abuse Patient Records regulations: The Federal rules restrict any use of the information to criminally investigate or prosecute any alcohol or drug abuse patient.[facility] HospitalIn the event this information is protected by the Federal Confidentiality of Alcohol and Drug Abuse Patient Records regulations: The Federal rules restrict any use of the information to criminally investigate or prosecute any alcohol or drug abuse patient.[facility] HospitalIn the event this information is protected by the Federal Confidentiality of Alcohol and Drug Abuse Patient Records regulations: The Federal rules restrict any use of the information to criminally investigate or prosecute any alcohol or drug abuse patient.[facility] HospitalIn the event this information is protected by the Federal Confidentiality of Alcohol and Drug Abuse Patient Records regulations: The Federal rules restrict any use of the information to criminally investigate or prosecute any alcohol or drug abuse patient.[facility] HospitalIn the event this information is protected by the Federal Confidentiality of Alcohol and Drug Abuse Patient Records regulations: The Federal rules restrict any use of the information to criminally investigate or prosecute any alcohol or drug abuse patient.[facility] HospitalIn the event this information is protected by the Federal Confidentiality of Alcohol and Drug Abuse Patient Records regulations: The Federal rules restrict any use of the information to criminally investigate or prosecute any alcohol or drug abuse patient.[facility] HospitalIn the event this information is protected by the Federal Confidentiality of Alcohol and Drug Abuse Patient Records regulations: The Federal rules restrict any use of the information to criminally investigate or prosecute any alcohol or drug abuse patient.[facility] HospitalIn the event this information is protected by the Federal Confidentiality of Alcohol and Drug Abuse Patient Records regulations: The Federal rules restrict any use of the information to criminally investigate or prosecute any alcohol or drug abuse patient.[facility] HospitalIn the event this information is protected by the Federal Confidentiality of Alcohol and Drug Abuse Patient Records regulations: The Federal rules restrict any use of the information to criminally investigate or prosecute any alcohol or drug abuse patient.[facility] HospitalIn the event this information is protected by the Federal Confidentiality of Alcohol and Drug Abuse Patient Records regulations: The Federal rules restrict any use of the information to criminally investigate or prosecute any alcohol or drug abuse patient.[facility] HospitalIn the event this information is protected by the Federal Confidentiality of Alcohol and Drug Abuse Patient Records regulations: The Federal rules restrict any use of the information to criminally investigate or prosecute any alcohol or drug abuse patient.[facility] HospitalIn the event this information is protected by the Federal Confidentiality of Alcohol and Drug Abuse Patient Records regulations: The Federal rules restrict any use of the information to criminally investigate or prosecute any alcohol or drug abuse patient.[facility] HospitalIn the event this information is protected by the Federal Confidentiality of Alcohol and Drug Abuse Patient Records regulations: The Federal rules restrict any use of the information to criminally investigate or prosecute any alcohol or drug abuse patient.[facility] HospitalIn the event this information is protected by the Federal Confidentiality of Alcohol and Drug Abuse Patient Records regulations: The Federal rules restrict any use of the information to criminally investigate or prosecute any alcohol or drug abuse patient.[facility] HospitalIn the event this information is protected by the Federal Confidentiality of Alcohol and Drug Abuse Patient Records regulations: The Federal rules restrict any use of the information to criminally investigate or prosecute any alcohol or drug abuse patient.[facility] HospitalIn the event this information is protected by the Federal Confidentiality of Alcohol and Drug Abuse Patient Records regulations: The Federal rules restrict any use of the information to criminally investigate or prosecute any alcohol or drug abuse patient.[facility] HospitalIn the event this information is protected by the Federal Confidentiality of Alcohol and Drug Abuse Patient Records regulations: The Federal rules restrict any use of the information to criminally investigate or prosecute any alcohol or drug abuse patient.[facility] HospitalIn the event this information is protected by the Federal Confidentiality of Alcohol and Drug Abuse Patient Records regulations: The Federal rules restrict any use of the information to criminally investigate or prosecute any alcohol or drug abuse patient.[facility] HospitalIn the event this information is protected by the Federal Confidentiality of Alcohol and Drug Abuse Patient Records regulations: The Federal rules restrict any use of the information to criminally investigate or prosecute any alcohol or drug abuse patient.[facility] HospitalIn the event this information is protected by the Federal Confidentiality of Alcohol and Drug Abuse Patient Records regulations: The Federal rules restrict any use of the information to criminally investigate or prosecute any alcohol or drug abuse patient.[facility] HospitalIn the event this information is protected by the Federal Confidentiality of Alcohol and Drug Abuse Patient Records regulations: The Federal rules restrict any use of the information to criminally investigate or prosecute any alcohol or drug abuse patient.[facility] HospitalIn the event this information is protected by the Federal Confidentiality of Alcohol and Drug Abuse Patient Records regulations: The Federal rules restrict any use of the information to criminally investigate or prosecute any alcohol or drug abuse patient.[facility] HospitalIn the event this information is protected by the Federal Confidentiality of Alcohol and Drug Abuse Patient Records regulations: The Federal rules restrict any use of the information to criminally investigate or prosecute any alcohol or drug abuse patient.[facility] HospitalIn the event this information is protected by the Federal Confidentiality of Alcohol and Drug Abuse Patient Records regulations: The Federal rules restrict any use of the information to criminally investigate or prosecute any alcohol or drug abuse patient.[facility] HospitalIn the event this information is protected by the Federal Confidentiality of Alcohol and Drug Abuse Patient Records regulations: The Federal rules restrict any use of the information to criminally investigate or prosecute any alcohol or drug abuse patient.[facility] HospitalIn the event this information is protected by the Federal Confidentiality of Alcohol and Drug Abuse Patient Records regulations: The Federal rules restrict any use of the information to criminally investigate or prosecute any alcohol or drug abuse patient.[facility] HospitalIn the event this information is protected by the Federal Confidentiality of Alcohol and Drug Abuse Patient Records regulations: The Federal rules restrict any use of the information to criminally investigate or prosecute any alcohol or drug abuse patient.[facility] HospitalIn the event this information is protected by the Federal Confidentiality of Alcohol and Drug Abuse Patient Records regulations: The Federal rules restrict any use of the information to criminally investigate or prosecute any alcohol or drug abuse patient.[facility] HospitalIn the event this information is protected by the Federal Confidentiality of Alcohol and Drug Abuse Patient Records regulations: The Federal rules restrict any use of the information to criminally investigate or prosecute any alcohol or drug abuse patient.[facility] HospitalIn the event this information is protected by the Federal Confidentiality of Alcohol and Drug Abuse Patient Records regulations: The Federal rules restrict any use of the information to criminally investigate or prosecute any alcohol or drug abuse patient.[facility] HospitalIn the event this information is protected by the Federal Confidentiality of Alcohol and Drug Abuse Patient Records regulations: The Federal rules restrict any use of the information to criminally investigate or prosecute any alcohol or drug abuse patient.[facility] HospitalIn the event this information is protected by the Federal Confidentiality of Alcohol and Drug Abuse Patient Records regulations: The Federal rules restrict any use of the information to criminally investigate or prosecute any alcohol or drug abuse patient.[facility] HospitalIn the event this information is protected by the Federal Confidentiality of Alcohol and Drug Abuse Patient Records regulations: The Federal rules restrict any use of the information to criminally investigate or prosecute any alcohol or drug abuse patient.[facility] HospitalIn the event this information is protected by the Federal Confidentiality of Alcohol and Drug Abuse Patient Records regulations: The Federal rules restrict any use of the information to criminally investigate or prosecute any alcohol or drug abuse patient.[facility] HospitalIn the event this information is protected by the Federal Confidentiality of Alcohol and Drug Abuse Patient Records regulations: The Federal rules restrict any use of the information to criminally investigate or prosecute any alcohol or drug abuse patient.[facility] HospitalIn the event this information is protected by the Federal Confidentiality of Alcohol and Drug Abuse Patient Records regulations: The Federal rules restrict any use of the information to criminally investigate or prosecute any alcohol or drug abuse patient.[facility] HospitalIn the event this information is protected by the Federal Confidentiality of Alcohol and Drug Abuse Patient Records regulations: The Federal rules restrict any use of the information to criminally investigate or prosecute any alcohol or drug abuse patient.[facility] HospitalIn the event this information is protected by the Federal Confidentiality of Alcohol and Drug Abuse Patient Records regulations: The Federal rules restrict any use of the information to criminally investigate or prosecute any alcohol or drug abuse patient.[facility] HospitalIn the event this information is protected by the Federal Confidentiality of Alcohol and Drug Abuse Patient Records regulations: The Federal rules restrict any use of the information to criminally investigate or prosecute any alcohol or drug abuse patient.[facility] HospitalIn the event this information is protected by the Federal Confidentiality of Alcohol and Drug Abuse Patient Records regulations: The Federal rules restrict any use of the information to criminally investigate or prosecute any alcohol or drug abuse patient.[facility] HospitalIn the event this information is protected by the Federal Confidentiality of Alcohol and Drug Abuse Patient Records regulations: The Federal rules restrict any use of the information to criminally investigate or prosecute any alcohol or drug abuse patient.[facility] HospitalIn the event this information is protected by the Federal Confidentiality of Alcohol and Drug Abuse Patient Records regulations: The Federal rules restrict any use of the information to criminally investigate or prosecute any alcohol or drug abuse patient.[facility] HospitalIn the event this information is protected by the Federal Confidentiality of Alcohol and Drug Abuse Patient Records regulations: The Federal rules restrict any use of the information to criminally investigate or prosecute any alcohol or drug abuse patient.Mem[facility] HospitalIn the event this information is protected by the Federal Confidentiality of Alcohol and Drug Abuse Patient Records regulations: The Federal rules restrict any use of the information to criminally investigate or prosecute any alcohol or drug abuse patient.[facility] HospitalIn the event this information is protected by the Federal Confidentiality of Alcohol and Drug Abuse Patient Records regulations: The Federal rules restrict any use of the information to criminally investigate or prosecute any alcohol or drug abuse patient.[facility] HospitalIn the event this information is protected by the Federal Confidentiality of Alcohol and Drug Abuse Patient Records regulations: The Federal rules restrict any use of the information to criminally investigate or prosecute any alcohol or drug abuse patient.[facility] HospitalIn the event this information is protected by the Federal Confidentiality of Alcohol and Drug Abuse Patient Records regulations: The Federal rules restrict any use of the information to criminally investigate or prosecute any alcohol or drug abuse patient.[facility] HospitalIn the event this information is protected by the Federal Confidentiality of Alcohol and Drug Abuse Patient Records regulations: The Federal rules restrict any use of the information to criminally investigate or prosecute any alcohol or drug abuse patient.[facility] Reason for Visit (unrecogniz ed section [...] TREATMENT REFERRAL COVID TREATMENT REFERRAL Becky Mccarthy, SHANELLE.DAIRY CHEMIST [address] [place] [address] Referral ID Status Reason Start Date Expiration Date Visits Requested Visits Authorized [id number] Pending Review Auto-Generat ed Referral 2 01/21/2023 [...] Comments Home Health Order Request Reason Comments [facility], PT plan of care FYI-No Action Needed [...] Date Comments Refill Request 05/23/2022 Reason Comments [facility]/ verbal orders Reason Onset Date Comments CDM Escalation 05/29/2022 CDM [facility] Questio nnaire Triggered Escalation Reason Onset Date Comments community monitoring outreach 05/30/2022 CD M-Escalation follow up Reason Comments Results Reason Comments [facility], plan of care for nursing Reason Comments patient assistance program/humalog Reason Comments Follow Up 2 month f/u-CHF Reason Comments Humalog problem Reason Comments Patient Update CGM sensors Reason Comments Forms Reason Onset Date Comments Refill Request 07/09/2022 Reason Comments Follow Up Knee Pain Reason Comments Hematuria Reason Comments [facility] HH request VO Reason Comments Anticoagulation Perioperative Manage ment Reason Comments home health requesting verbal order Reason Onset Date Comments Refill Request 09/19/2022 Reason Comments F/U 3 months Reason Comments 11/28/2022 COLON/EGD WHITE Reason Comments Consult EGD and colonoscopy Specialty Diagnoses / Procedures Referred By Contac t Referred To Contact General Surgery Diagnoses Black stool Procedures CONSULT TO GENERAL SURGERY OFFICE/OUTPATIENT [facility] 60-74 MINUTES Shereen Holt, GRAILS WEB APPLICATION DEVELOPER.DAIRY CHEMIST [address] [place] [address] Referral ID Status Reason Start Date Expiration Date V isits Requested Visits Authorized [id number] Closed PCP Requested Referral 10/09/2022 10/09/2023 1 [...] CD M-Telephonic outreach Reason Comments ED Follow-up [facility] ER for SOB Reason Comments Anticoagulation Restarted coumadin t lefty, will check INR in 1 week. Reason Onset Date Comments Refill Request 02/23/2023 Reason Comments Anticoagulation Home INR Care Teams (unrecognized sec tion and content) Field Tech Relationship Specialty Start Date End Date Ramiro Null, GRAILS WEB APPLICATION DEVELOPER.DAIRY CHEMIST, DNP [address] [place], [place] [address] PCP - General Family Practice 02/12/21 [facility] [address] [facility] [place] [address] Pharmacist Pharmacy 10/13/19 13, Pharmacist [id number] [facility] [place] [address] Pharmacy 12/06/19 May Garcia, mineral mixerCustoms Manager 11/28/20 [place], Manning S [address] [facility] [place] [address] Specialty Manager Professional Development Cardiology 01/13/21 Field Tech Relationship Specialty Start Date End Date Ramiro Null APRN.DAIRY CHEMIST, DNP [address] [place] [address] PCP - General Family Practice 02/12/[address] [facility] [address] [place] [address] Pharmacist Pharmacy 10/13/19 13, Pharmacist [id number] [facility] [place] [address] Pharmacy 12/06/19 May Garcia, mineral mixerCustoms Manager 11/28/20 [place], Johan S [address] [place] [address] Specialty Manager Professional Development Cardiology 01/13/21 Field Tech Relationship Specialty Start Date End Date Ramiro Null APRN.DAIRY CHEMIST, DNP [address] [place] [address] PCP - General Family Practice 02/12/[address] [facility] [address] [place] [address] Pharmacist Pharmacy 10/13/19 13, Pharmacist [address]82 [facility] [place] [address] Pharmacy 12/06/19 May Garcia, mineral mixerCustoms Manager 11/28/20 [place], Manning S [address] [facility] [place] [address] Specialty Manager Professional Development Cardiology 01/13/21 Field Tech Relationship Specialty Start Date End Date Ramiro Null APRN.DAIRY CHEMIST, DNP [address] [facility] [address] PCP - General Family Practice 02/12/[address] [facility] [address] [facility] [place] [address] Pharmacist Pharmacy 10/13/19 13, Pharmacist [address]1522 [facility] [place] [address] Pharmacy 12/06/19 May Garcia, mineral mixerCustoms Manager 11/28/20 [facility], Manning S [address] [place] [address] Specialty Manager Professional Development Cardiology 01/13/21 Field Tech Relationship Specialty Start Date End Date Ramiro Null APRN.DAIRY CHEMIST, DNP [address] [facility] [place] [address] PCP - General Family Practice 02/12/21 [facility] [address] [facility] [place] [address] Pharmacist Pharmacy 10/13/19 13, Pharmacist 28036 [facility] [place] [address] Pharmacy 12/06/19 May Garcia, mineral mixerCustoms Manager 11/28/20 [place], Johan S [address] [place] [address] Specialty Manager Professional Development Cardiology 01/13/21 Field Tech Relationship Specialty Start Date End Date Ramiro Null APRN.RODRIGUEZ, DNP [address] [place] [address] PCP - General Family Practice 02/12/21 [facility]ethi[facility] [address] [place] [address] Pharmacist Pharmacy 10/13/19 13, Pharmacist [address]34 [facility] [place] [address] Pharmacy 12/06/19 May Garcia, mineral mixerCustoms Manager 11/28/20 [place], Manning S [address] [place] [address] Specialty Manager Professional Development Cardiology 01/13/21 Field Tech Relationship Specialty Start Date End Date Ramiro Null, SHANELLE.FAIZA FRIAS [address] [place] [address] PCP - General Family Practice 02/12/21 [facility] [address] [place] [address] Pharmacist Pharmacy 10/13/19 13, Pharmacist 19730 [facility] [place] [address] Pharmacy 12/06/19 May Garcia RN [address] [place], [place] [id number] Customs Manager 11/28/20 [place], Johan S [address] [place] [address] Specialty Manager Professional Development Cardiology 01/13/21 Field Tech Relationship Specialty Start Date End Date Ramiro Null, GRAILS WEB APPLICATION DEVELOPER.FAIZA FRIAS [address] [place] [address] PCP - General Family Practice 02/12/21 [facility] [address] [place] [address] Pharmacist Pharmacy 10/13/19 13, Pharmacist 81125 [facility] [place] [address] Pharmacy 12/06/19 May Garcia RN [address] [place], [place] [phone] Customs Manager 11/28/20 [place], Johan S [address] [place] [address] Specialty Manager Professional Development Cardiology 01/13/21 Field Tech Relationship Specialty Start Date End Date Ramiro Null APRN.RODRIGUEZ, DNP [address] [place] [address] PCP - General Family Practice 02/12/21 [facility] [address] [place] [address] Pharmacist Pharmacy 10/13/19 13, Pharmacist 98379 [facility] [place] [address] Pharmacy 12/06/19 May Garcia RN [address] [place] [address] Customs Manager 11/28/20 [place], Johan S [address] [place] [address] Specialty Manager Professional Development Cardiology 01/13/21 Field Tech Relationship Specialty Start Date End Date Ramiro Null APRN.RODRIGUEZ, DNP [address] [place] [address] PCP - General Family Practice 02/12/21 [facility]ipejonhCholoSaint [facility] [address] [place] [address] Pharmacist Pharmacy 10/13/19 13, Pharmacist [address]3665 [facility] [place] [address] Pharmacy 12/06/19 May Garcia RN [address] [place] [address] Customs Manager 11/28/20 [place], Johan S [address] [facility] [address] Specialty Manager Professional Development Cardiology 01/13/21 Field Tech Relationship Specialty Start Date End Date Ramiro Null, GRAILS WEB APPLICATION DEVELOPER.DAIRY CHEMIST, DNP [address] [facility] [place] [address] PCP - General Family Practice 02/12/21 [facility] [address] [facility] [place] [address] Pharmacist Pharmacy 10/13/19 13, Pharmacist 88648 [facility] [place] [address] Pharmacy 12/06/19 May Garcia RN [address] [place] [address] Customs Manager 11/28/20 [place], Johan S [address] [place] [address] Specialty Manager Professional Development Cardiology 01/13/21 Field Tech Relationship Specialty Start Date End Date Ramiro Null, GRAILS WEB APPLICATION DEVELOPER.DAIRY CHEMIST, DNP [address] [facility] [place] [address] PCP - General Family Practice 02/12/21 [facility] [address] [facility] [place] [address] Pharmacist Pharmacy 10/13/19 13, Pharmacist 21183 [facility] [place] [address] Pharmacy 12/06/19 May Garcia RN [address] [place] [address] Customs Manager 11/28/20 [place], Manning S [address] [facility] [place] [address] Specialty Manager Professional Development Cardiology 01/13/21 Field Tech Relationship Specialty Start Date End Date Ramiro Null, GRAILS WEB APPLICATION DEVELOPER.FAIZA FRIAS [address] [facility] [place] [address] PCP - General Family Practice 02/12/21 [facility] [address] [facility] [place] [address] Pharmacist Pharmacy 10/13/19 13, Pharmacist [address] [place] [address] Pharmacy 12/06/19 May Garcia RN [address] [place] [address] Customs Manager 11/28/20 [place], Johan S [address] [facility] [address] Specialty Manager Professional Development Cardiology 01/13/21 Field Tech Relationship Specialty Start Date End Date Ramiro Null, GRAILS WEB APPLICATION DEVELOPER.FAIZA FRIAS [address] [place] [address] PCP - General Family Practice 02/12/21 [facility] [address] [facility] [place] [address] Pharmacist Pharmacy 10/13/19 13, Pharmacist [address]69 [facility] [place] [address] Pharmacy 12/06/19 May Garcia RN [address] [place] [address] Customs Manager 11/28/20 [place], Manning S [address] [facility] [place] [address] Specialty Manager Professional Development Cardiology 01/13/21 Field Tech Relationship Specialty Start Date End Date Ramiro Null, SHANELLE.DAIRY CHEMIST, DNP [address] [facility] [address] PCP - General Family Practice 02/12/21 [facility] [address] [facility] [place] [address] Pharmacist Pharmacy 10/13/19 13, Pharmacist 08207 [facility] [place] [address] Pharmacy 12/06/19 May Garcia RN [address] [place], [place] [phone] Customs Manager 11/28/20 [place], Manning S [address] [place] [address] Specialty Manager Professional Development Cardiology 01/13/21 Field Tech Relationship Specialty Start Date End Date Ramiro Null, SHANELLE.RODRIGUEZ, DNP [address] [place] [address] PCP - General Family Practice 02/12/[address] [facility] [address] [place] [address] Pharmacist Pharmacy 10/13/19 13, Pharmacist 58712 [facility] [place] [address] Pharmacy 12/06/19 May Garcia RN [address] [place] [address] Customs Manager 11/28/20 [place], Manning S [address] [place] [address] Specialty Manager Professional Development Cardiology 01/13/21 Field Tech Relationship Specialty Start Date End Date Ramiro Null, GRAILS WEB APPLICATION DEVELOPER.RODRIGUEZ, DNP [address] [facility] [place] [address] PCP - General Family Practice 02/12/21 Felipejonh [facility]oloSaint [facility] [address] [facility] [place] [address] Pharmacist Pharmacy 10/13/19 13, Pharmacist 25944 [facility] [place] [address] Pharmacy 12/06/19 May Garcia RN [address] [place], [place] 5576331 Customs Manager 11/28/20 [place], Johan S [address] [place] [address] Specialty Manager Professional Development Cardiology 01/13/21 Field Tech Relationship Specialty Start Date End Date Ramiro Null, GRAILS WEB APPLICATION DEVELOPER.RODRIGUEZ, DNP [address] [facility] [place] [address] PCP - General Family Practice 02/12/21 Felipe [facility]oloSaint [facility] [address] [facility] [place] [address] Pharmacist Pharmacy 10/13/19 13, Pharmacist 01937 [facility] [place] [address] Pharmacy 12/06/19 May Garcia RN [address] [place], [place] 6531931 Customs Manager 11/28/20 [place], Manning S [address] [facility] [address] Specialty Manager Professional Development Cardiology 01/13/21 Del Ayala [address] [facility] [address] Screening Unit Registered Nurse Pulmonary Disease 11/11/21 Field Tech Relationship Specialty Start Date End Date Ramiro Null, SHANELLE.RODRIGUEZ, DNP [address] [facility] [place] [address] PCP - General Family Practice 02/12/21 [facility] [address] [facility] [place] [address] Pharmacist Pharmacy 10/13/19 13, Pharmacist 67153 [facility] [place] [address] Pharmacy 12/06/19 May Garcia RN [address] [place], [place] 9610031 Customs Manager 11/28/20 [place], Johan S [address] [facility] [address] Specialty Manager Professional Development Cardiology 01/13/21 Del Ayala [address] [place] [facility] [place] [address] Screening Unit Registered Nurse Pulmonary Disease 11/11/21 Field Tech Relationship Specialty Start Date End Date Ramiro Null, SHANELLE.RODRIGUEZ, DNP [address] [facility] [place] [address] PCP - General Family Practice 02/12/21 [facility]CholoSaint [facility] [address] [facility] [place] [address] Pharmacist Pharmacy 10/13/19 13, Pharmacist 66694 [facility] [place] [address] Pharmacy 12/06/19 May Garcia RN [address] [place], [place] [phone] Customs Manager 11/28/20 Orlando, Johan S [address] [place] [address] Specialty Manager Professional Development Cardiology 01/13/21 Del Ayala [address] [place] [address] Screening Unit Registered Nurse Pulmonary Disease 11/11/21 Field Tech Relationship Specialty Start Date End Date Ramiro Null, GRAILS WEB APPLICATION DEVELOPER.DAIRY CHEMIST, DNP [address] [facility] [place] [address] PCP - General Family Practice 02/12/21 [facility] [address] [facility] [place] [address] Pharmacist Pharmacy 10/13/19 13, Pharmacist [address] [place] [address] Pharmacy 12/06/19 May Garcia RN [address] [place] [phone] Customs Manager 11/28/20 Johan Perry [address] [place] [address] Specialty Manager Professional Development Cardiology 01/13/21 Del Ayala [address] [place] [address] Screening Unit Registered Nurse Pulmonary Disease 11/11/21 Field Tech Relationship Specialty Start Date End Date Ramiro Null, GRAILS WEB APPLICATION DEVELOPER.DAIRY CHEMIST, DNP [address] [facility] [place] [address] PCP - General Family Practice 02/12/21 [facility] [address] [facility] [place] [address] Pharmacist Pharmacy 10/13/19 13, Pharmacist [address] [place] [address] Pharmacy 12/06/19 May Garcia RN [address] [place] [address] Customs Manager 11/28/20 [place], Manning S [address] [place] [address] Specialty Manager Professional Development Cardiology 01/13/[address]ala [address] [place] [address] Screening Unit Registered Nurse Pulmonary Disease 11/11/21 Field Tech Relationship Specialty Start Date End Date Ramiro Null, SHANELLE.DAIRY CHEMIST, DNP [address] [place] [address] PCP - General Family Practice 02/12/21 [facility] [address] [facility] [place] [address] Pharmacist Pharmacy 10/13/19 13, Pharmacist 46546 [facility] [place] [address] Pharmacy 12/06/19 May Garcia RN [address] [place], [place] 5275031 Customs Manager 11/28/20 [place], Manning S [address] [facility] [place] [address] Specialty Manager Professional Development Cardiology 01/13/21 Del Ayala [address] [place] [address] Screening Unit Registered Nurse Pulmonary Disease 11/11/21 Field Tech Relationship Specialty Start Date End Date Ramiro Null, GRAILS WEB APPLICATION DEVELOPER.DAIRY CHEMIST, DNP [address] [facility] [place] [address] PCP - General Family Practice 02/12/21 [facility] [address] [place] [address] Pharmacist Pharmacy 10/13/19 13, Pharmacist [address] [place] [address] Pharmacy 12/06/19 May Garcia RN [address] [place] [address] Customs Manager 11/28/20 [place], Manning S [address] [place] [address] Specialty Manager Professional Development Cardiology 01/13/21 Del Ayala [address] [place] [address] Screening Unit Registered Nurse Pulmonary Disease 11/11/21 Field Tech Relationship Specialty Start Date End Date Ramiro Null APRN.DAIRY CHEMIST, DNP [address] [place] [address] PCP - General Family Practice 02/12/21 [facility] [address] [place] [address] Pharmacist Pharmacy 10/13/19 13, Pharmacist [address] [place] [address] Pharmacy 12/06/19 May Garcia RN [address] [place] [address] Customs Manager 11/28/20 [place], Manning S [address] [place] [address] Specialty Manager Professional Development Cardiology 01/13/21 Del [address]ala [address] [place] [address] Screening Unit Registered Nurse Pulmonary Disease 11/11/21 Field Tech Relationship Specialty Start Date End Date Trev Patino MD [address] [place] [address] PCP - General Family Practice 12/12/21 [facility] [address] [place] [address] Pharmacist Pharmacy 10/13/19 13, Pharmacist [address] [place] [address] Pharmacy 12/06/19 May Garcia, RN [address] [place] [address] Customs Manager 11/28/20 [place], Johan S [address] [place] [address] Specialty Manager Professional Development Cardiology 01/13/21 Del Ayala [address] [place] [address] Screening Unit Registered Nurse Pulmonary Disease 11/11/21 Field Tech Relationship Specialty Start Date End Date Trev Patino MD [address] [place] [address] PCP - General Family Medicine 12/12/21 [facility] [address] [place] [address] Pharmacist Pharmacy 10/13/19 13, Pharmacist [address]53 [facility] [place] [address] Pharmacy 12/06/19 May Garcia RN [address] [place], [place] [phone] Customs Manager 11/28/20 [place], Johan S [address] [place] [address] Specialty Manager Professional Development Cardiology 01/13/21 Del Ayala [address] [place] [address] Screening Unit Registered Nurse Pulmonary Disease 11/11/21 Field Tech Relationship Specialty Start Date End Date Trev Patino MD [address] [place] [address] PCP - General Family Medicine 12/12/21 [facility] [address] [place] [address] Pharmacist Pharmacy 10/13/19 13, Pharmacist [address] [place] [address] Pharmacy 12/06/19 May Garcia RN [address] [place] [address] Customs Manager 11/28/20 Johan Perry [address] [place] [address] Specialty Manager Professional Development Cardiology 01/13/21 Del Ayala [address] [place] [address] Screening Unit Registered Nurse Pulmonary Disease 11/11/21 Field Tech Relationship Specialty Start Date End Date Trev Patino MD [address] [place] [address] PCP - General Family Medicine 12/12/21 [facility] [address] [place] [address] Pharmacist Pharmacy 10/13/19 13, Pharmacist [address] [place] [address] Pharmacy 12/06/19 May Garcia RN [address] [place] [address] Customs Manager 11/28/20 Orlando, Johan S [address] [facility] [place] [address] Specialty Manager Professional Development Cardiology 01/13/21 Del Ayala [address] [place] [address] Screening Unit Registered Nurse Pulmonary Disease 11/11/21 Field Tech Relationship Specialty Start Date End Date Trev Patino MD [address] [place] [address] PCP - General Family Medicine 12/12/21 [facility] [address] [place] [address] Pharmacist Pharmacy 10/13/19 13, Pharmacist [address] [place] [address] Pharmacy 12/06/19 May Garcia, RN [address] [place] [address] Customs Manager 11/28/20 [place], Manning S [address] [place] [address] Specialty Manager Professional Development Cardiology 01/13/21 Del Ayala [address] [place] [address] Screening Unit Registered Nurse Pulmonary Disease 11/11/21 Field Tech Relationship Specialty Start Date End Date Trev Patino MD [address] [place] [address] PCP - General Family Medicine 12/12/21 [facility] [address] [place] [address] Pharmacist Pharmacy 10/13/19 13, Pharmacist [address] [place] [address] Pharmacy 12/06/19 May Garcia RN [address] [place], [place] [phone] Customs Manager 11/28/20 Orlando, Manning S [address] [facility] [place] [address] Specialty Manager Professional Development Cardiology 01/13/21 Del Ayala [address] [place] [place] [address] Screening Unit Registered Nurse Pulmonary Disease 11/11/21 Field Tech Relationship Specialty Start Date End Date Trev Patino MD [address] [place] [address] PCP - General Family Medicine 12/12/21 [facility] [address] [place] [address] Pharmacist Pharmacy 10/13/19 13, Pharmacist [address] [place] [address] Pharmacy 12/06/19 May Garcia RN [address] [place] [address] Customs Manager 11/28/20 Orlando, Johan S [address] [facility] [place] [address] Specialty Manager Professional Development Cardiology 01/13/21 Del Ayala [address] [place] [address] Screening Unit Registered Nurse Pulmonary Disease 11/11/21 Field Tech Relationship Specialty Start Date End Date Trev Patino MD [address] [place] [address] PCP - General Family Medicine 12/12/21 Deedee [facility]Saint [facility] [address] [place] [address] Pharmacist Pharmacy 10/13/19 13, Pharmacist [address] [place] [address] Pharmacy 12/06/19 May Garcia RN [address] [place] [address] Customs Manager 11/28/20 Orlando, Manning S [address] [facility] [place] [address] Specialty Manager Professional Development Cardiology 01/13/21 Del Ayala [address] [place] [address] Screening Unit Registered Nurse Pulmonary Disease 11/11/21 Field Tech Relationship Specialty Start Date End Date Trev Patino MD [address] [place] [address] PCP - General Family Medicine 12/12/21 Felipe DeedeethiSaint [facility] [address] [place] [address] Pharmacist Pharmacy 10/13/19 13, Pharmacist [address]27 [place] [address] Pharmacy 12/06/19 May Garcia RN [address] [place] [address] Customs Manager 11/28/20 Orlando, Johan S [address] [facility] [place] [address] Specialty Manager Professional Development Cardiology 01/13/21 Del Ayala [address] [place] [address] Screening Unit Registered Nurse Pulmonary Disease 11/11/21 Field Tech Relationship Specialty Start Date End Date Trev Patino MD [address] [place] [address] PCP - General Family Medicine 12/12/21 Cholo [facility]Saint [facility] [address] [place] [address] Pharmacist Pharmacy 10/13/19 13, Pharmacist [address] [place] [address] Pharmacy 12/06/19 May Garcia RN [address] [place], [place] [id number] Customs Manager 11/28/20 Orlando, Manning S [address] [place] [address] Specialty Manager Professional Development Cardiology 01/13/21 Del Ayala [address] [place] [address] Screening Unit Registered Nurse Pulmonary Disease 11/11/21 Field Tech Relationship Specialty Start Date End Date Trev Patino MD [address] [place] [address] PCP - General Family Medicine 12/12/21 [facility] [address] [place] [address] Pharmacist Pharmacy 10/13/19 13, Pharmacist [address] [facility] [place] [address] Pharmacy 12/06/19 May Garcia RN [address] [place], [place] [id number] Customs Manager 11/28/20 Orlando, Johan S [address] [place] [address] Specialty Manager Professional Development Cardiology 01/13/21 Del Ayala [address] [place] [address] Screening Unit Registered Nurse Pulmonary Disease 11/11/21 Field Tech Relationship Specialty Start Date End Date Trev Patino MD [address] [place] [address] PCP - General Family Medicine 12/12/21 [facility]Saint [facility] [address] [place] [address] Pharmacist Pharmacy 10/13/19 13, Pharmacist [address] [place] [address] Pharmacy 12/06/19 May Garcia RN [address] [place] [address] Customs Manager 11/28/20 Orlando, Manning S [address] [place] [address] Specialty Manager Professional Development Cardiology 01/13/21 Del Ayala [address] [place] [address] Screening Unit Registered Nurse Pulmonary Disease 11/11/21 Field Tech Relationship Specialty Start Date End Date Trev Patino MD [address] [place] [address] PCP - General Family Medicine 12/12/21 Cholo [facility]peSaint [facility] [address] [place] [address] Pharmacist Pharmacy 10/13/19 13, Pharmacist [address] [place] [address] Pharmacy 12/06/19 Orlando, Johan S [address] [place] [address] Specialty Manager Professional Development Cardiology 01/13/21 Del Ayala [address] [place] [address] Screening Unit Registered Nurse Pulmonary Disease 11/11/21 Kalia Ambrocio RN [address] [place], [place] [phone] Customs Manager Family Medicine 11/28/20 Field Tech Relationship Specialty Start Date End Date Trev Patino MD [address] [facility] [place] [address] PCP - General Family Medicine 12/12/21 Cholo [facility]Saint [facility] [address] [place] [address] Pharmacist Pharmacy 10/13/19 13, Pharmacist [address]2665 [place] [address] Pharmacy 12/06/19 Balaji Perryril S [address] [facility] [address] Specialty Manager Professional Development Cardiology 01/13/21 Del Ayala [address] [place] [address] Screening Unit Registered Nurse Pulmonary Disease 11/11/21 Kalia Ambrocio RN [address] [place] [address] Customs Manager Family Medicine 11/28/20 Field Tech Relationship Specialty Start Date End Date Trev Patino MD [address] [place] [address] PCP - General Family Medicine 12/12/21 [facility]olo [facility]peSaint [facility] [address] [place] [address] Pharmacist Pharmacy 10/13/19 13, Pharmacist [address]407 [place] [address] Pharmacy 12/06/19 Orlando, Johan S [address] [place] [address] Specialty Manager Professional Development Cardiology 01/13/21 Del Ayala [address] [place] [address] Screening Unit Registered Nurse Pulmonary Disease 11/11/21 Kalia Ambrocio, RN [address] [place], [place] 5588331 Customs Manager Family Medicine 11/28/20 Field Tech Relationship Specialty Start Date End Date Trev Patino MD [address] [place] [address] PCP - General Family Medicine 12/12/21 Cholo Thorpe [facility] [address] [place] [address] Pharmacist Pharmacy 10/13/19 13, Pharmacist [address]89 [place] [address] Pharmacy 12/06/19 May Garcia RN [address] [place] [address] Customs Manager 11/28/2001/29/22 Orlando, Manning S [address] [place] [address] Specialty Manager Professional Development Cardiology 01/13/21 Del Ayala [address] [place] [address] Screening Unit Registered Nurse Pulmonary Disease 11/11/21 Kalia Ambrocio, RN [address] [place], [place] 3413431 Customs Manager Family Medicine 11/28/20 Field Tech Relationship Specialty Start Date End Date Trev Patino MD [address] [place] [address] PCP - General Family Medicine 12/12/21 FelipeCholoSaint [facility] Hospital [facility] [address] [place] [address] Pharmacist Pharmacy 10/13/19 13, Pharmacist [address]803 [place] [address] Pharmacy 12/06/19 Orlando, Johan S [address] [place] [address] Specialty Manager Professional Development Cardiology 01/13/21 Del Ayala [facility] DANTE[address] [address] Screening Unit Registered Nurse Pulmonary Disease 11/11/21 Kalia Ambrocio RN [address] [place], [place] 7374031 Customs Manager Family Medicine 11/28/20 Field Tech Relationship Specialty Start Date End Date Trev Patino MD [address] [place] [address] PCP - General Family Medicine 12/12/21 FelipeCholoSaint [facility] [address] [place] [address] Pharmacist Pharmacy 10/13/19 13, Pharmacist 81605 [place] [address] Pharmacy 12/06/19 Orlando, Manning S [address] [place] [address] Specialty Manager Professional Development Cardiology 01/13/21 Del Ayala [address] [place] [address] Screening Unit Registered Nurse Pulmonary Disease 11/11/21 Kalia Ambrocio RN [address] [place] [address] Customs Manager Family Medicine 11/28/20 Field Tech Relationship Specialty Start Date End Date Trev Patino MD [address] [place] [address] PCP - General Family Medicine 12/12/21 Cholo [facility]peSaint [facility] [address] [place] [address] Pharmacist Pharmacy 10/13/19 13, Pharmacist [address]69 [place] [address] Pharmacy 12/06/19 Orlando, Johan S [address] [place] [address] Specialty Manager Professional Development Cardiology 01/13/21 Del Ayala [address] [place] [address] Screening Unit Registered Nurse Pulmonary Disease 11/11/21 Kalia Ambrocio RN [address] [place] [address] Customs Manager Family Medicine 11/28/20 Field Tech Relationship Specialty Start Date End Date Trev Patino MD [address] [place] [address] PCP - General Family Medicine 12/12/21 Cholo Thorpe, [facility] [address] [place] [address] Pharmacist Pharmacy 10/13/19 13, Pharmacist [address]241 [place] [address] Pharmacy 12/06/19 Orlando, Manning S [address] [facility] [place] [address] Specialty Manager Professional Development Cardiology 01/13/21 Del Ayala [address] [place] [address] Screening Unit Registered Nurse Pulmonary Disease 11/11/21 Kalia Ambrocio RN [address] [place], [place] 6990931 Customs Manager Family Medicine 11/28/20 Field Tech Relationship Specialty Start Date End Date Trev Patino MD [address] [place] [address] PCP - General Family Medicine 12/12/21 Cholo Thorpe, [facility] [address] [place] [address] Pharmacist Pharmacy 10/13/19 13, Pharmacist [address] [place] [address] Pharmacy 12/06/19 Orlando, Manning S [address] [place] [address] Specialty Manager Professional Development Cardiology 01/13/21 Del Ayala [address] [place] [address] Screening Unit Registered Nurse Pulmonary Disease 11/11/21 Kalia Ambrocio RN [address] [place] [address] Customs Manager Family Medicine 11/28/20 Field Tech Relationship Specialty Start Date End Date Trev Patino MD [address] [place] [address] PCP - General Family Medicine 12/12/21 Cholo Thorpe, [facility] [address] [place] [address] Pharmacist Pharmacy 10/13/19 13, Pharmacist 20184 [place] [address] Pharmacy 12/06/19 Orlando, Manning S [address] [place] [address] Specialty Manager Professional Development Cardiology 01/13/21 Del Ayala [address] [facility] [place] [address] Screening Unit Registered Nurse Pulmonary Disease 11/11/21 Kalia Ambrocio RN [address] [place], [place] 8178431 Customs Manager Family Medicine 11/28/20 Field Tech Relationship Specialty Start Date End Date Trev Patino MD [address] [place] [address] PCP - General Family Medicine 12/12/21 [facility]olo [facility]peSaint [facility] [address] [place] [address] Pharmacist Pharmacy 10/13/19 13, Pharmacist [address]758 [place] [address] Pharmacy 12/06/19 Orlando, Johan S [address] [facility] [place] [address] Specialty Manager Professional Development Cardiology 01/13/21 Del Ayala [address] [facility] [place] [address] Screening Unit Registered Nurse Pulmonary Disease 11/11/21 Kalia Ambrocio RN [address] [place] [address] Customs Manager Family Medicine 01/29/22 Field Tech Relationship Specialty Start Date End Date Trev Patino MD [address] [place] [address] PCP - General Family Medicine 12/12/21 Cholo [facility]peSaint [facility] [address] [place] [address] Pharmacist Pharmacy 10/13/19 13, Pharmacist [address] [place] [address] Pharmacy 12/06/19 Orlando, Manning S [address] [facility] Antonellainscription house [place] [address] Specialty Manager Professional Development Cardiology 01/13/21 Del Ayala [address] [place] [address] Screening Unit Registered Nurse Pulmonary Disease 11/11/21 Kalia Ambrocio RN [address] [place], [place] 8082931 Customs Manager Family Medicine 01/29/22 Field Tech Relationship Specialty Start Date End Date Trev Patino MD [address] [place] [address] PCP - General Family Medicine 12/12/21 Cholo Thorpe, [facility] [address] [place] [address] Pharmacist Pharmacy 10/13/19 13, Pharmacist 13984 [place] [address] Pharmacy 12/06/19 Orlando, Johan S [address] [place] [address] Specialty Manager Professional Development Cardiology 01/13/21 Del Ayala [address] [place] [place] [address] Screening Unit Registered Nurse Pulmonary Disease 11/11/21 Kalia Ambrocio RN [address] [place], [place] 0444731 Customs Manager Family Medicine 01/29/22 Field Tech Relationship Specialty Start Date End Date Trev Patino MD [address] [place] [address] PCP - General Family Medicine 12/12/21 [facility]peSaint [facility] [address] [place] [address] Pharmacist Pharmacy 10/13/19 13, Pharmacist [address]62 [place] [address] Pharmacy 12/06/19 Orlando, Manning S [address] [place] [address] Specialty Manager Professional Development Cardiology 01/13/21 Del Ayala [address] [place] [address] Screening Unit Registered Nurse Pulmonary Disease 11/11/21 Kalia Ambrocio RN [address] [place] [address] Customs Manager Family Medicine 01/29/22 Field Tech Relationship Specialty Start Date End Date Trev Patino MD [address] [place] [address] PCP - General Family Medicine 12/12/21 FelipeCholoSaint [facility] Hospital [facility] [address] [place] [address] Pharmacist Pharmacy 10/13/19 13, Pharmacist [address]68 [place] [address] Pharmacy 12/06/19 Orlando, Manning S [address] [place] [address] Specialty Manager Professional Development Cardiology 01/13/21 Del Ayala [address] G[address] [place] [address] Screening Unit Registered Nurse Pulmonary Disease 11/11/21 Kalia Ambrocio RN [address] [place] [address] Customs Manager Family Medicine 01/29/22 Field Tech Relationship Specialty Start Date End Date Trev Patino MD [address] [place] [address] PCP - General Family Medicine 12/12/21 [facility]olo [facility]peSaint [facility] [address] [place] [address] Pharmacist Pharmacy 10/13/19 13, Pharmacist 13363 [place] [address] Pharmacy 12/06/19 Orlando, Johan S [address] [place] [address] Specialty Manager Professional Development Cardiology 01/13/21 Del Ayala [address] [place] [address] Screening Unit Registered Nurse Pulmonary Disease 11/11/21 Kalia Ambrocio, RN [address] [place] [address] Customs Manager Family Medicine 01/29/22 Field Tech Relationship Specialty Start Date End Date Trev Patino MD [address] [place] [address] PCP - General Family Medicine 12/12/21 [facility]peSaint [facility] [address] [place] [address] Pharmacist Pharmacy 10/13/19 13, Pharmacist [address]26 [place] [address] Pharmacy 12/06/19 Orlando, Manning S [address] [place] [address] Specialty Manager Professional Development Cardiology 01/13/21 Del Ayala [address] [place] [address] Screening Unit Registered Nurse Pulmonary Disease 11/11/21 Kalia Ambrocio RN [address] [place] [address] Customs Manager [facility] Medicine 01/29/22 Field Tech Relationship Specialty Start Date End Date Trev Patino MD [address] [place] [address] PCP - General Family Medicine 12/12/21 [facility]peSaint [facility] [address] [place] [address] Pharmacist Pharmacy 10/13/19 13, Pharmacist [address]84 [place] [address] Pharmacy 12/06/19 Orlando, Manning S [address] [place] [address] Specialty Manager Professional Development Cardiology 01/13/21 Del Ayala [address] [place] [address] Screening Unit Registered Nurse Pulmonary Disease 11/11/21 Kalia Ambrocio RN [address] [place] [address] Customs Manager [facility] 01/29/22 Field Tech Relationship Specialty Start Date End Date Trev Patino MD [address] [place] [address] PCP - General Family Medicine 12/12/21 Cholo [facility]peSaint [facility] [address] [place] [address] Pharmacist Pharmacy 10/13/19 13, Pharmacist [address] [facility] [place] [address] Pharmacy 12/06/19 Orlando, Johan S [address] [place] [address] Specialty Manager Professional Development Cardiology 01/13/21 Del Ayala [address] [place] [address] Screening Unit Registered Nurse Pulmonary Disease 11/11/21 Kalia Ambrocio RN [address] [place], [place] 6448231 Customs Manager Family Medicine 01/29/22 Field Tech Relationship Specialty Start Date End Date Trev Patino MD [address] [place] [address] PCP - General Family Medicine 12/12/21 [facility]olo [facility]peSaint [facility] [address] [place] [address] Pharmacist Pharmacy 10/13/19 13, Pharmacist [address]95 [place] [address] Pharmacy 12/06/19 Balaji Perryril S [address] [place] [place] [address] Specialty Manager Professional Development Cardiology 01/13/21 Del Ayala [address] [place] [address] Screening Unit Registered Nurse Pulmonary Disease 11/11/21 Kalia Ambrocio RN [address] [place] [address] Customs Manager Family Medicine 01/29/22 Field Tech Relationship Specialty Start Date End Date Trev Patino MD [address] [place] [address] PCP - General Family Medicine 12/12/21 [facility]olo [facility]peSaint [facility] [address] [place] [address] Pharmacist Pharmacy 10/13/19 13, Pharmacist [address] [place] [address] Pharmacy 12/06/19 Orlando, Manning S [address] [place] [address] Specialty Manager Professional Development Cardiology 01/13/21 Del Ayala [address] [place] [address] Screening Unit Registered Nurse Pulmonary Disease 11/11/21 Kalia Ambrocio, RN [address] [place], [place] 4679631 Customs Manager Family Medicine 01/29/22 Field Tech Relationship Specialty Start Date End Date Trev Patino MD [address] [place] [address] PCP - General Family Medicine 12/12/21 [facility]olo [facility] [address] [place] [address] Pharmacist Pharmacy 10/13/19 13, Pharmacist [address]50 [place] [address] Pharmacy 12/06/19 Orlando, Manning S [address] [facility] [place] [address] Specialty Manager Professional Development Cardiology 01/13/21 Del Ayala [address] [place] [place] [address] Screening Unit Registered Nurse Pulmonary Disease 11/11/21 Kalia Ambrocio RN [address] [place], [place] 3045531 Customs Manager Family Medicine 01/29/22 Field Tech Relationship Specialty Start Date End Date Trev Patino MD [address] [place] [address] PCP - General Family Medicine 12/12/21 [facility] [address] [place] [address] Pharmacist Pharmacy 10/13/19 13, Pharmacist [address]01 [place] [address] Pharmacy 12/06/19 Orlando, Manning S [address] [facility] [place] [address] Specialty Manager Professional Development Cardiology 01/13/21 Del Ayala [address] [place] [address] Screening Unit Registered Nurse Pulmonary Disease 11/11/21 Kalia Ambrocio RN [address] [place], [place] 6460031 Customs Manager Family Medicine 01/29/22 Field Tech Relationship Specialty Start Date End Date Trev Patino MD [address] [place] [address] PCP - General Family Medicine 12/12/21 Cholo Thorpe, [facility] [address] [place] [address] Pharmacist Pharmacy 10/13/19 13, Pharmacist [address]33 [place] [address] Pharmacy 12/06/19 Orlando, Manning S [address] [place] [address] Specialty Manager Professional Development Cardiology 01/13/21 Del Ayala [address] [place] [address] Screening Unit Registered Nurse Pulmonary Disease 11/11/21 Kalia Ambrocio RN [address] [place], [place] 5251131 Customs Manager Family Medicine 01/29/22 Field Tech Relationship Specialty Start Date End Date Trev Patino MD [address] [place] [address] PCP - General Family Medicine 12/12/21 Fel[facility]CholoSaint [facility] [address] [place] [address] Pharmacist Pharmacy 10/13/19 13, Pharmacist [address]230 [place] [address] Pharmacy 12/06/19 Orlando, Manning S [address] [place] [address] Specialty Manager Professional Development Cardiology 01/13/21 Del Ayala [facility] D[address] [address] Screening Unit Registered Nurse Pulmonary Disease 11/11/21 Kalia Ambrocio RN [address] [place], [place] 1471531 Customs Manager Family Medicine 01/29/22 Field Tech Relationship Specialty Start Date End Date Trev Patino MD [address] [place] [address] PCP - General Family Medicine 12/12/21 [facility]olo[facility] [address] [place] [address] Pharmacist Pharmacy 10/13/19 13, Pharmacist [address]71 [place] [address] Pharmacy 12/06/19 Orlando, Johan S [address] [place] [address] Specialty Manager Professional Development Cardiology 01/13/21 Del Ayala [address] [place] [address] Screening Unit Registered Nurse Pulmonary Disease 11/11/21 Kalia Ambrocio RN [address] [place] [address] Customs Manager Family Medicine 01/29/22 Field Tech Relationship Specialty Start Date End Date Trev Patino MD [address] [place] [address] PCP - General Family Medicine 12/12/21 [facility] [address] [place] [address] Pharmacist Pharmacy 10/13/19 13, Pharmacist [address]12 [place] [address] Pharmacy 12/06/19 Orlando, Manning S [address] [place] [address] Specialty Manager Professional Development Cardiology 01/13/21 Del Ayala [address] [place] [address] Screening Unit Registered Nurse Pulmonary Disease 11/11/21 Kalia Ambrocio RN [address] [place] [address] Customs Manager Family Medicine 01/29/22 Field Tech Relationship Specialty Start Date End Date Trev Patino MD [address] [place] [address] PCP - General Family Medicine 12/12/21 Cholo Thorpe, [facility] [address] [place] [address] Pharmacist Pharmacy 10/13/19 13, Pharmacist [address] [place] [address] Pharmacy 12/06/19 Orlando, Manning S [address] [facility] [place] [address] Specialty Manager Professional Development Cardiology 01/13/21 Del Ayala [address] [place] [address] Screening Unit Registered Nurse Pulmonary Disease 11/11/21 Kalia Ambrocio, DRAGAN [address] [place] [address] Customs Manager [facility] 01/29/22 Field Tech Relationship Specialty Start Date End Date Trev Patino MD [address] [place] [address] PCP - General Family Medicine 12/12/21 Cholo Thorpe, [facility] [address] [place] [address] Pharmacist Pharmacy 10/13/19 13, Pharmacist [address]85 [place] [address] Pharmacy 12/06/19 Orlando, Manning S [address] [place] [address] Specialty Manager Professional Development Cardiology 01/13/21 Del Ayala [address] [place] [address] Screening Unit Registered Nurse Pulmonary Disease 11/11/21 Kalia Ambrocio RN [address] [place] [address] Customs Manager Family Medicine 01/29/22 Field Tech Relationship Specialty Start Date End Date Trev Patino MD [address] [place] [address] PCP - General Family Medicine 12/12/21 Cholo Thorpe, [facility] [address] [place] [address] Pharmacist Pharmacy 10/13/19 13, Pharmacist [address]28 [place] [address] Pharmacy 12/06/19 Orlando, Johan S [address] [place] [address] Specialty Manager Professional Development Cardiology 01/13/21 Del Ayala [address] [place] [address] Screening Unit Registered Nurse Pulmonary Disease 11/11/21 Kalia Ambrocio, RN [address] [place] [address] Customs Manager Family Medicine 01/29/22 Field Tech Relationship Specialty Start Date End Date Trev Patino MD [address] [place] [address] PCP - General Family Medicine 12/12/21 [facility] [address] [place] [address] Pharmacist Pharmacy 10/13/19 13, Pharmacist [address]261 [place] [address] Pharmacy 12/06/19 Johan Perry [address] [place] [address] Specialty Manager Professional Development Cardiology 01/13/21 Del Ayala [address] [place] [address] Screening Unit Registered Nurse Pulmonary Disease 11/11/21 Kalia Ambrocio RN [address] [place] [address] Customs Manager Family Medicine 01/29/22 Field Tech Relationship Specialty Start Date End Date Trev Patino MD [address] [place] [address] PCP - General Family Medicine 12/12/21 [facility] [address] [place] [address] Pharmacist Pharmacy 10/13/19 13, Pharmacist [address]12 [place] [address] Pharmacy 12/06/19 Orlando, Johan S [address] [place] [address] Specialty Manager Professional Development Cardiology 01/13/21 Del Ayala [address] [place] [address] Screening Unit Registered Nurse Pulmonary Disease 11/11/21 Kalia Ambrocio RN [address] [place] [address] Customs Manager Family Medicine 01/29/22 Field Tech Relationship Specialty Start Date End Date Trev Patino MD [address] [place] [address] PCP - General Family Medicine 12/12/21 [facility] [address] [place] [address] Pharmacist Pharmacy 10/13/19 13, Pharmacist [address]37 [place] [address] Pharmacy 12/06/19 Orlando, Manning S [address] [place] [address] Specialty Manager Professional Development Cardiology 01/13/21 Del Ayala [address] [place] [address] Screening Unit Registered Nurse Pulmonary Disease 11/11/21 Kalia Ambrocio RN [address] [place] [address] Customs Manager Family Medicine 01/29/22 Field Tech Relationship Specialty Start Date End Date Trev Patino MD [address] [place] [address] PCP - General Family Medicine 12/12/21 Cholo Thorpe, [facility] [address] [place] [address] Pharmacist Pharmacy 10/13/19 13, Pharmacist [id number] [place] [address] Pharmacy 12/06/19 Orlando, Manning S [address] [place] [address] Specialty Manager Professional Development Cardiology 01/13/21 Del Ayala [address] [place] [address] Screening Unit Registered Nurse Pulmonary Disease 11/11/21 Kalia Ambrocio, RN [address] [place] [address] Customs Manager [facility] 01/29/22 Field Tech Relationship Specialty Start Date End Date Trev Patino MD [address] [place] [address] PCP - General Family Medicine 12/12/21 Cholo Thorpe, [facility] [address] [place] [address] Pharmacist Pharmacy 10/13/19 13, Pharmacist [id number] [place] [address] Pharmacy 12/06/19 Orlando, Johan S [address] [place] [address] Specialty Manager Professional Development Cardiology 01/13/21 Del Ayala [address] [place] [address] Screening Unit Registered Nurse Pulmonary Disease 11/11/21 Kalia Ambrocio RN [address] [place] [address] Customs Manager Family Medicine 01/29/22 Field Tech Relationship Specialty Start Date End Date Trev Patino MD [address] [place] [address] PCP - General Family Medicine 12/12/21 [facility] [address] [place] [address] Pharmacist Pharmacy 10/13/19 13, Pharmacist [id number] [place] [address] Pharmacy 12/06/19 Johan Perry [address] [place] [address] Specialty Manager Professional Development Cardiology 01/13/21 Del Ayala [address] [place] [address] Screening Unit Registered Nurse Pulmonary Disease 11/11/21 Kalia Ambrocio RN [address] [place] [address] Customs Manager Family Medicine 01/29/22 Field Tech Relationship Specialty Start Date End Date Trev Patino MD [address] [facility] [place] [address] PCP - General Family Medicine 12/12/21 [facility] [address] [place] [address] Pharmacist Pharmacy 10/13/19 13, Pharmacist [address] [place] [address] Pharmacy 12/06/19 Orlando, Manning S [address] [place] [address] Specialty Manager Professional Development Cardiology 01/13/21 Del Ayala [address] [place] [address] Screening Unit Registered Nurse Pulmonary Disease 11/11/21 Kalia Ambrocio RN [address] [place] [address] Customs Manager Family Medicine 01/29/22 Field Tech Relationship Specialty Start Date End Date Trev Patino MD [address] [place] [address] PCP - General Family Medicine 12/12/21 Cholo Thorpe [facility] [address] [place] [address] Pharmacist Pharmacy 10/13/19 13, Pharmacist [id number] [place] [address] Pharmacy 12/06/19 Olrando, Johan S [address] [facility] [place] [phone] Specialty Manager Professional Development Cardiology 01/13/21 Del Ayala [address] [place] [address] Screening Unit Registered Nurse Pulmonary Disease 11/11/21 Kalia Ambrocio RN [address] [place] [phone] Customs Manager Family Medicine 01/29/22 Field Tech Relationship Specialty Start Date End Date Trev Patino MD [address] [place] [address] PCP - General Family Medicine 12/12/21 Cholo Thorpe, [facility] [address] [place] [address] Pharmacist Pharmacy 10/13/19 13, Pharmacist [address] [place] [address] Pharmacy 12/06/19 Orlando, Manning S [address] [place] [address] Specialty Manager Professional Development Cardiology 01/13/21 Del Ayala [address] [place] [address] Screening Unit Registered Nurse Pulmonary Disease 11/11/21 Kalia Ambrocio, RN [address] [place] [address] Customs Manager Family Medicine 01/29/22 Field Tech Relationship Specialty Start Date End Date Trev Patino MD [address] [place] [address] PCP - General Family Medicine 12/12/21 Cholo Thorpe, [facility] [address] [place] [address] Pharmacist Pharmacy 10/13/19 13, Pharmacist [address] [facility] [place] [address] Pharmacy 12/06/19 Orlando, Manning S [address] [place] [address] Specialty Manager Professional Development Cardiology 01/13/21 Del Ayala MD [address] [place] [address] Screening Unit Registered Nurse Pulmonary Disease 11/11/21 Kalia Ambrocio RN [address] [place] [address] Customs Manager Family Medicine 01/29/22 Field Tech Relationship Specialty Start Date End Date Trev Patino MD [address] [place] [address] PCP - General Family Medicine 12/12/21 [facility] [address] [place] [address] Pharmacist Pharmacy 10/13/19 13, Pharmacist [address] [place] [address] Pharmacy 12/06/19 Johan Perry [address] [place] [address] Specialty Manager Professional Development Cardiology 01/13/21 Del Ayala MD [address] [place] [address] Screening Unit Registered Nurse Pulmonary Disease 11/11/21 Kalia Ambrocio RN [address] [place] [address] Customs Manager Family Medicine 01/29/22 Field Tech Relationship Specialty Start Date End Date Trev Patino MD [address] [place] [address] PCP - General Family Medicine 12/12/21 [facility] [address] [place] [address] Pharmacist Pharmacy 10/13/19 13, Pharmacist [address] [place] [address] Pharmacy 12/06/19 Orlando, Johan S [address] [place] [address] Specialty Manager Professional Development Cardiology 01/13/21 Del Ayala MD [address] [place] [address] Screening Unit Registered Nurse Pulmonary Disease 11/11/21 Kalia Ambrocio, DRAGAN [address] [place] [address] Customs Manager Family Medicine 01/29/22 Field Tech Relationship Specialty Start Date End Date Trev Patino MD [address] [place] [address] PCP - General Family Medicine 12/12/21 Cholo Thorpe [facility] [address] [place] [address] Pharmacist Pharmacy 10/13/19 13, Pharmacist [address] [place] [address] Pharmacy 12/06/19 Orlando, Manning S [address] [place] [phone] Specialty Manager Professional Development Cardiology 01/13/21 Del Ayala MD [address] [place] [address] Screening Unit Registered Nurse Pulmonary Disease 11/11/21 Kalia Ambrocio RN [address] [place] [address] Customs Manager Family Medicine 01/29/22 Field Tech Relationship Specialty Start Date End Date Trev Patino MD [address] [place] [address] PCP - General Family Medicine 12/12/21 [facility] [address] [place] [address] Pharmacist Pharmacy 10/13/19 13, Pharmacist [address] [place] [address] Pharmacy 12/06/19 Orlando, Manning S [address] [place] [address] Specialty Manager Professional Development Cardiology 01/13/21 Del Ayala MD [address] [facility] [address] Screening Unit Registered Nurse Pulmonary Disease 11/11/21 Kalia Ambrocio, RN [address] [place] [phone] Customs Manager Family Medicine 01/29/22 Field Tech Relationship Specialty Start Date End Date Trev Patino MD [address] [place] [address] PCP - General Family Medicine 12/12/21 [facility] [address] [place] [address] Pharmacist Pharmacy 10/13/19 13, Pharmacist [address] [place] [address] Pharmacy 12/06/19 Orlando, Manning S [address] [place] [address] Specialty Manager Professional Development Cardiology 01/13/21 Del Ayala MD [address] [place] [address] Screening Unit Registered Nurse Pulmonary Disease 11/11/21 Kalia Ambrocio RN [address] [place] [address] Customs Manager Family Medicine 01/29/22 Field Tech Relationship Specialty Start Date End Date Trev Patino MD [address] [place] [address] PCP - General Family Medicine 12/12/21 [facility] [address] [place] [address] Pharmacist Pharmacy 10/13/19 13, Pharmacist [address] [place] [address] Pharmacy 12/06/19 Johan Perry S [address] [place] [address] Specialty Manager Professional Development Cardiology 01/13/21 Del Ayala MD [address] [place] [address] Screening Unit Registered Nurse Pulmonary Disease 11/11/21 Kalia Ambrocio RN [address] [place] [address] Customs Manager Family Medicine 01/29/22 Field Tech Relationship Specialty Start Date End Date Trev Patino MD [address] [place] [address] PCP - General Family Medicine 12/12/21 [facility] [address] [place] [address] Pharmacist Pharmacy 10/13/19 13, Pharmacist [address] [place] [address] Pharmacy 12/06/19 Johan Perry MD [address] [place] [address] Specialty Manager Professional Development Cardiology 01/13/21 Del Ayala MD [address] [place] [address] Screening Unit Registered Nurse Pulmonary Disease 11/11/21 Kalia Ambrocio, DRAGAN [address] [place] [address] Customs Manager Family Medicine 01/29/22 Field Tech Relationship Specialty Start Date End Date Trev Patino MD [address] [place] [address] PCP - General Family Medicine 12/12/21 [facility] [address] [place] [address] Pharmacist Pharmacy 10/13/19 13, Pharmacist [address] [place] [address] Pharmacy 12/06/19 Johan Perry MD [address] [place] [address] Specialty Manager Professional Development Cardiology 01/13/21 Del Ayala MD [address] [place] [address] Screening Unit Registered Nurse Pulmonary Disease 11/11/21 Kalia Ambrocio RN [address] [place] [address] Customs Manager Family Medicine 01/29/22 Field Tech Relationship Specialty Start Date End Date Trev Patino MD [address] [place] [address] PCP - General Family Medicine 12/12/21 [facility] [address] [place] [address] Pharmacist Pharmacy 10/13/19 13, Pharmacist [address] [place] [address] Pharmacy 12/06/19 Johan Perry MD [address] [place] [address] Specialty Manager Professional Development Cardiology 01/13/21 Del Ayala MD [address] [place] [address] Screening Unit Registered Nurse Pulmonary Disease 11/11/21 Kalia Ambrocio RN [address] [place] [address] Customs Manager Family Medicine 01/29/22 Field Tech Relationship Specialty Start Date End Date Trev Patino MD [address] [place] [address] PCP - General Family Medicine 12/12/21 [facility] [address] [place] [address] Pharmacist Pharmacy 10/13/19 13, Pharmacist [address] [place] [address] Pharmacy 12/06/19 Johan Perry MD [address] [place] [address] Specialty Manager Professional Development Cardiology 01/13/21 Del Ayala MD [address] [place] [address] Screening Unit Registered Nurse Pulmonary Disease 11/11/21 Kalia Ambrocio RN [address] [place], [place] [address]407131 Customs Manager Family Medicine 01/29/22 Field Tech Relationship Specialty Start Date End Date Trev Patino MD [address] [place] [address] PCP - General Family Medicine 12/12/21 Cholo Thorpe [facility] [address] [place] [address] Pharmacist Pharmacy 10/13/19 13, Pharmacist [address] [place] [address] Pharmacy 12/06/19 Johan Perry MD [address] [place] [address] Specialty Manager Professional Development Cardiology 01/13/21 Del Ayala MD [address] [facility] [place] [address] Screening Unit Registered Nurse Pulmonary Disease 11/11/21 Kalia Ambrocio RN [address] [place] [address] Customs Manager Family Medicine 01/29/22 Field Tech Relationship Specialty Start Date End Date Trev Patino MD [address] [place] [address] PCP - General Family Medicine 12/12/21 [facility] [address] [place] [address] Pharmacist Pharmacy 10/13/19 13, Pharmacist [address] [place] [address] Pharmacy 12/06/19 Johan Perry MD [address] [place] [address] Specialty Manager Professional Development Cardiology 01/13/21 Del Ayala MD [address] [place] [address] Screening Unit Registered Nurse Pulmonary Disease 11/11/21 Kalia Ambrocio RN [address] [place] [address] Customs Manager Family Medicine 01/29/22 Field Tech Relationship Specialty Start Date End Date Trev Patino MD [address] [place] [address] PCP - General Family Medicine 12/12/21 [facility] Pharmacist Pharmacy 10/13/19 13, Pharmacist [address] [place] [address] Pharmacy 12/06/19 Johan Perry MD [address] [place] [phone] Specialty Manager Professional Development Cardiology 01/13/21 Del Ayala MD [address] [place] [address] Screening Unit Registered Nurse Pulmonary Disease 11/11/21 Kalia Ambrocio RN [address] [place], [place] [address]34231 Customs Manager Family Medicine 01/29/22 Field Tech Relationship Specialty Start Date End Date Trev Patino MD [address] [place] [address] PCP - General Family Medicine 12/12/21 [facility] Pharmacist Pharmacy 10/13/19 13, Pharmacist [address] [place] [address] Pharmacy 12/06/19 Johan Perry MD [address] [place] [address] Specialty Manager Professional Development Cardiology 01/13/21 Del Ayala MD [address] [place] [address] Screening Unit Registered Nurse Pulmonary Disease 11/11/21 Kalia Ambrocio RN [address] [place] [address] Customs Manager [facility] 01/29/22 Field Tech Relationship Specialty Start Date End Date Trev Patino MD [address] [place] [address] PCP - General Family Medicine 12/12/21 [facility] Pharmacist Pharmacy 10/13/19 13, Pharmacist [address] [place] [address] Pharmacy 12/06/19 Johan Perry MD [address] [place] [address] Specialty Manager Professional Development Cardiology 01/13/21 Del Ayala MD [address] [place] [address] Screening Unit Registered Nurse Pulmonary Disease 11/11/21 Kalia Ambrocio RN [address] [place] [address] Customs Manager Family Medicine 01/29/22 Field Tech Relationship Specialty Start Date End Date Trev Patino MD [address] [place] [address] PCP - General Family Medicine 12/12/21 [facility] Pharmacist Pharmacy 10/13/19 13, Pharmacist [address] [place] [address] Pharmacy 12/06/19 Johan Perry MD [address] [place] [phone] Specialty Manager Professional Development Cardiology 01/13/21 Del Ayala MD [address] [place] [address] Screening Unit Registered Nurse Pulmonary Disease 11/11/21 Kalia Ambrocio RN [address] [place] [address] Customs Manager Family Medicine 01/29/22 Field Tech Relationship Specialty Start Date End Date Trev Patino MD [address] [place] [address] PCP - General Family Medicine 12/12/21 [facility] Pharmacist Pharmacy 10/13/19 13, Pharmacist [address] [place] [address] Pharmacy 12/06/19 Johan Perry MD [address] [facility] [place] [address] Specialty Manager Professional Development Cardiology 01/13/21 Del Ayala MD [address] [place] [address] Screening Unit Registered Nurse Pulmonary Disease 11/11/21 Kalia Ambrocio RN [address] [place] [address] Customs Manager [facility] Medicine 01/29/22 Field Tech Relationship Specialty Start Date End Date Trev Patino MD [address] [place], [place] [address]241 PCP - General Family Medicine 12/12/21 Cholo Thorpe [facility] Pharmacist Pharmacy 10/13/19 13, Pharmacist [address] [place] [address] Pharmacy 12/06/19 Johan Perry MD [address] [place] [address] Specialty Manager Professional Development Cardiology 01/13/21 Del Ayala MD [address] [place], [place] [address] Screening Unit Registered Nurse Pulmonary Disease 11/11/21 Kalia Ambrocio RN [address] [place] [address] Customs Manager Family Medicine 01/29/22 FOR RECORDS PERTAINING TO [...] BE BASED ON THE PRIMARY CLINICAL RECORDS. [facility] [employer], [facility]. provides no warranty or guarantee of the accuracy or completeness of information in this document.
--- NOTE | 2023-04-17 21:54 | CT_ITS ---
STUDY: CT CHEST, ABDOMEN T PELVIS WITHOUT CONTRAST REASON FOR EXAM: Male, 77 years old. Fever, altered mental status, leukocytosis unknown RADIATION DOSAGE (If Supplied By Facility): CTDIvol = ( 26.27 ) mGy, DLP = ( 2585.42 ) mGycm TECHNIQUE: Transaxial imaging was performed without the administration of intravenous contrast material. Individualized dose optimization techniques were used for this CT. COMPARISON: FINDINGS: CHEST The lungs are normal. There is no demonstrated pleural abnormality. Normal heart and pericardium. Coronary arterial calcifications are present. Normal mediastinum. Normal hilar regions. Normal unenhanced pulmonary arteries. Normal aorta arch and descending thoracic aorta. Degenerative vertebral changes. ABDOMEN Normal liver. Normal gallbladder and extrahepatic biliary system. Enlarged spleen. Normal pancreas. 1.5 cm gastrohepatic node is noted. Normal bilateral adrenal glands. Normal right kidney. Extrarenal pelvis of the left kidney. Normal visualized stomach. Normal small intestine. Mild diverticulosis of the colon. The appendix is visualized and appears normal. Calcified abdominal aorta. Normal inferior vena cava. Normal retroperitoneum. Small fatty umbilical hernia. Degenerative vertebral changes. PELVIS Normal urinary bladder. There is no pelvic fluid. There is no pelvic lymphadenopathy or mass lesion. Normal visualized pelvic arteries. CT/CT Chest, Abd, Pelvis WO Cont IMPRESSION: Mild colonic diverticulosis. Slightly prominent gastrohepatic node. Fatty umbilical hernia. Electronically Signed: Diaz Keating DO at 23:42 EST ,
[2023-04-17 22:08] LABS: Reflex Lactate? Y
[2023-04-17] MEDS: MethylPREDNISolone 125 MG/2 ML Vial IV (22:18)
[2023-04-17] MEDS: Albuterol 2.5 MG/3 ML VIAL.NEB. INHALATION ×2 (22:26→23:10)
[2023-04-17 22:55] LABS: Procalcitonin 0.32 ng/mL (0.00-0.09)
[2023-04-17 22:57] LABS: D-Dimer Quantitative (DVT/PE) < 0.27 FEU/ug/m (0.27-0.49)
[2023-04-17 22:58] LABS: Lactic Acid 2.3 mmol/L (0.4-1.9)
[2023-04-17] MEDS: 0.9% Normal Saline (1000mL) 1,000 ML 999 ML IV (23:20)
[2023-04-17] MEDS: Nitroglycerin (INPATIENT USE) 0.4 MG TAB.SUBL 0.400000000000000022 MG SL ×2 (23:35→23:40)
[2023-04-17] MEDS: Pramipexole Di-HCl 0.5 MG Tablet PO (23:45)
[2023-04-17] MEDS: Atorvastatin Calcium 80 MG Tablet PO (23:46)
--- NOTE | 2023-04-17 23:46 | PCM.RX.CS ---
Consult Antibiotic Management Pharmacy has been consulted to manage selected antibiotic: Vancomycin Type of Intervention Type of Consult: New start Labs Labs: Sodium 137 mmol/L (136-145) 04/17/23 18:00 Potassium 3.0 mmol/L (3.5-5.1) L 04/17/23 18:00 Chloride 97 mmol/L (98-107) L 04/17/23 18:00 Carbon Dioxide 33.0 mmol/L (21.0-32.0) H 04/17/23 18:00 Anion Gap 7 (5-15) 04/17/23 18:00 BUN 38 mg/dL (7-18) H 04/17/23 18:00 Creatinine 1.51 mg/dL (0.70-1.30) H 04/17/23 18:00 Est GFR (MDRD) Af Amer 58 mL/min (>60) L 04/17/23 18:00 Est GFR (MDRD) Non-Af 48 mL/min (>60) L 04/17/23 18:00 BUN/Creatinine Ratio 25.2 RATIO (10-20) H 04/17/23 18:00 Glucose 180 mg/dL (74-106) H 04/17/23 18:00 Microbiology Microbiology: Microbiology 04/17/23 18:04 Mucosa - Nose SARS-CoV-2, Influenza & RSV (PCR) - Final Dosing Weight Weight used for dosin.1 kg Estimated Creatinine Clearance Estimated Creatinine Clearance: 51 Goal Trough Goal Trough: 15-20 mcg/mL Pharmacy Plan for Drug Dosing Pharmacy Plan for Drug Dosing: Pharmacy Service will continue to monitor and adjust dosing as required. Follow-Up Labs Follow-Up Labs: Trough: Vancomycin Date/Time Labs Ordered Labs to be done on [date and time ordered]: 04/19/23 @0900
[2023-04-18] VITALS (31 sets, daily range): BP systolic 94–129; BP diastolic 55–82; PULSE 73–99; RESP 12–24; TEMP 36.4–37.7; O2SAT 94–100; BMI 38.9
[2023-04-18] MEDS: Potassium Chloride Oral Tablet 20 MEQ 40 MEQ PO (00:35)
[2023-04-18] MEDS: DEXTROSE 5% IV ×2 (00:35→06:22)
[2023-04-18] MEDS: WATER IV ×2 (00:35→06:22)
[2023-04-18] MEDS: ACYCLOVIR IV ×2 (00:35→06:22)
[2023-04-18] MEDS: 0.9% Normal Saline (1000mL) 1,000 ML 999 ML IV ×3 (00:35→04:33)
[2023-04-18] MEDS: HEPARIN/D5w 25,000 UNITS 25,000 UNITS/250 ML IV.SOLN. 16 UNITS CONT INF (00:38)
[2023-04-18 00:47] LABS: International Normalized Ratio 1.6; Prothrombin Time (Protime)PT. 19.1 SECONDS (11.7-14.9)
[2023-04-18 00:48] LABS: Partial Thromboplast Time 33.2 Seconds (24.1-36.2)
[2023-04-18 01:01] LABS: BNP,B-Type NATRIURETIC PEPTIDE 76.4 pg/mL (0-100)
--- NOTE | 2023-04-18 01:19 | ECHOCS_ITS ---
Reason For Study: Elevated Troponin, CP, Bacteremia Procedure This was a 2D Doppler, Color Flow transthoracic echocardiogram. Contrast injection was performed. Exam performed portable in ICU/CCU. Left Ventricle Mildly dilated left ventricle. The estimated ejection fraction is 50-55% %. Atria The left atrium is mildly enlarged. The right atrium is moderately enlarged. Tricuspid Valve Normal tricuspid valve. Moderate (2+) tricuspid valve insufficiency. Aortic Valve Moderate diffuse aortic valve calcification. Pulmonic Valve The pulmonic valve is not well visualized. Great Vessels Normal aortic root. Pericardium/Pleural No pericardial effusion. Medication Diluted definity 3ml given slow IV push to enhance endocardial definition. MMode/2D Measurements & Calculations LVIDd: 5.7 cm IVSd: 1.4 cm Ao root diam: 3.3 cm LVIDs: 4.1 cm LVPWd: 1.4 cm RVDd: 4.1 cm FS: 27.6 % LAV(MOD-bp): 47.7 ml LA A4 area: 17.7 cm2 LA dimension(2D): 4.0 cm LAV(MOD-bp) Indexed: 20.8 ml/m2 LAV(MOD-sp2): 49.9 ml LAV(MOD-sp4): 43.9 ml TAPSE: 2.6 cm RA A4 area: 14.6 cm2 Time Measurements MV dec time: 0.15 sec Doppler Measurements & Calculations MV E max kuldip: 66.0 cm/sec Lat Peak E' Kuldip: 13.2 cm/sec Med Peak E' Kuldip: 11.9 cm/sec MV A max kuldip: 87.8 cm/sec E/E' lat: 5.0 E/E' med: 5.6 MV E/A: 0.75 MV dec slope: 434.6 cm/sec2 Ao V2 max: 178.2 cm/sec LV V1 max: 133.5 cm/sec Ao max P.7 mmHg LV V1 max P.1 mmHg Ao V2 mean: 125.1 cm/sec LV V1 mean P.2 mmHg Ao mean P.1 mmHg LV V1 mean: 96.9 cm/sec Ao V2 VTI: 38.3 cm LV V1 VTI: 27.2 cm AV (velocity ratio): 0.71 PA V2 max: 101.1 cm/sec TR max kuldip: 220.8 cm/sec TR max P.6 mmHg ECHO/Echo Complete W/ Contrast Interpretation Summary The estimated ejection fraction is 50-55% %. Low Normal EF Mild Infero basal Hypokinesia ICD/Pacer Lead noted on R.Side No Valvular vegetation Mild MR Moderate TR Ordering Physician: Ethan Townsend Referring Physician: Tomás Patino Performed By: Joana Kwok, EMMA, RVT
[2023-04-18] MEDS: Meropenem 1 GM in 0.9% Normal Saline (100mL MB+) 100 ML IV (04:33)
[2023-04-18 04:47] LABS: Absolute Lymphocyte Count 0.51 X10^3/uL (0.83-4.51); Absolute Neutrophil Count 20.1 X10^3/uL (2.0-7.7); Basophil# 0.06 X10^3/uL; Basophil% 0.3 % (0-1); Eosinophils% 0.5 % (0-5); Hematocrit 29.4 % (40-54); Hemoglobin 8.3 g/dL (13.0-16.5); Lymphocyte # 0.51 X10^3/ul (0.83-4.51); Lymphocyte % 2.4 % (19-41); Mean Corp Hgb Conc 28.2 g/dL (32-36); Mean Corpuscular Hgb 18.9 pg (27.0-32.0); Mean Corpuscular Volume 67.1 fL (80-94); Monocyte# 0.46 X10^3/uL; Monocyte% 2.1 % (0-10); NRBC Flagged by Analyzer 0 % (0-5); Neutrophil # 20.07 X10^3/uL (2.7-7.7); Neutrophil % 93.5 % (47-70); POSITIVE DIFFERENTIAL YES; Platelet Count 140 K/mm3 (150-450); RBC Distribution Width CV 18.5 % (11.6-14.6); RBC Distribution Width SD 43.3 fl (35.1-43.9); Red Blood Count 4.38 M/mm3 (4.6-6.2); White Blood Count 21.5 K/mm3 (4.4-11.0)
[2023-04-18 04:58] LABS: Differential Indicated SCAN CRITERIA MET
[2023-04-18 05:29] LABS: Differential Comment SCANNED
[2023-04-18 05:42] LABS: ALB/GLOB Ratio 0.8 RATIO (0.9-2.4); AST(SGOT) 18 U/L (15-37); Alanine Aminotransfer ALT/SGPT 16 U/L (16-61); Albumin, Serum 2.8 g/dL (3.2-5.0); Alkaline Phosphatase 57 U/L (45-117); Anion Gap 11 (5-15); BUN 38 mg/dL (7-18); BUN/Creat Ratio 26.2 RATIO (10-20); Calcium,Total 7.1 mg/dL (8.5-10.1); Chloride 102 mmol/L (98-107); Creatinine, Serum 1.45 mg/dL (0.70-1.30); EST Glomerular Filtration Rate 50 mL/min (>60); Est Glom Filt Rate - Afr Amer 61 mL/min (>60); Estimated Creatinine Clearance 52.79 ml/min; Globulin 3.4 g/dL (2.2-4.2); Glucose 297 mg/dL (74-106); Potassium 2.8 mmol/L (3.5-5.1); Protein, Total 6.2 g/dL (6.4-8.2); Sodium Level 138 mmol/L (136-145)
--- NOTE | 2023-04-18 06:09 | CON.PCM.CC_ITS ---
Assessment & Plan Assessment/Plan (1) Sepsis: QUALIFIERS: Sepsis acute organ dysfunction status: with acute organ dysfunction Sepsis type: sepsis due to unspecified organism Severe sepsis acute organ dysfunction type: encephalopathy Severe sepsis shock status: without septic shock Qualified Code(s): A41.9 - Sepsis, unspecified organism; R65.20 - Severe sepsis without septic shock; G93.41 - Metabolic encephalopathy PLAN: Plan RECOMMENDATIONS: 1. Continue antimicrobials as ordered. 2. Obtain echocardiogram to evaluate for valvular vegetations. 3. Continue nocturnal PAP therapy per home regimen. 4. Supplemental oxygen, if needed, to maintain saturations at or above 90%. 5. Stop continuous IV fluids. IMPRESSIONS: 1. Sepsis The patient presented with sepsis due to gram-positive bacteremia with unclear source with acute sepsis related organ dysfunction as evidenced by lactic acidemia. The patient did receive supplemental IV fluids and remains hemodyn amically stable. There is no need for vasopressor support. Recommend continuing antimicrobials per ID recommendations. Obtain echocardiogram to evaluate for any form of valvular vegetations given gram-positive bacteremia. 2. Acute kidney injury Most likely prerenal in etiology in the setting #1. Continue to monitor urine output for now. There is no current indication for renal replacement therapy. 3. Hypokalemia Electrolyte repletion as ordered. Recheck levels in the morning. 4. Anemia The patient was likely hemoconcentrated on presentation. Hemoglobin is stable this morning at 8.3 g/dL. Will send type and screen and initiate daily PPI therapy. Continue to monitor H&H and transfuse if hemoglobin drops below 7 g/dL. 5. History of obstructive sleep apnea Continue nocturnal PAP therapy per home regimen. 6. History of hypertension/hyperlipidemia/obesity/diabetes mellitus/history of DVT/paroxysmal atrial flutter Complicates care, management, recovery and prognosis. Continue home medications as indicated. Remainder of supportive care as noted above. This note was generated with [employer] dictation software. It may contain incorrect words, spelling, and punctuation that were not noted in checking the note before signing. HPI Consult Data Date of Consult: 04/19/23 HPI Narrative Reason for Consultation: Sepsis HPI Narrative: The patient is a 77-year-old male, with a history as outlined below, who presented to the emergency department via EMS on April 17 with fever, cough and shortness of breath. The patient is currently followed in the pulmonary medicine clinic by Dr. Jamie due to a history of obstructive sleep apnea on BiPAP. The patient's medical history is also significant for heart failure with reduced ejection fraction, hypertension, hyperlipidemia, paroxysmal atrial flutter, history of DVT, peripheral vascular disease and GERD. On presentation to the emergency department, the patient was documented to have a low-grade fever along with tachycardia and tachypnea. He was otherwise hemodynamically stable and saturating 93% on room air. Initial laboratory evaluation revealed a white blood cell count of 13,000. Arterial blood gas was notable for a pH of 7.5 with a pCO2 of 36 and pO2 of 79. Chemistry profile was notable for a potassium of 3.0, chloride of 97, bicarbonate of 33 and creatinine of 1.51. Lactate was elevated at 2.2. Troponin was mildly increased at 92. Blood cultures were obtained and were preliminarily positive for gram-positive cocci in chains. COVID, flu and RSV PCR were negative. Chest x-ray was unremarkable. CT abdomen/pelvis demonstrated mild colonic diverticulosis along with a fatty umbilical hernia. The patient received supplemental IV fluid hydration and was initiated on antimicrobials. This morning, the patient does report some mild residual shortness of breath, but remains otherwise hemodynamically stable. Apparently, the overnight hospitalist spoke with infectious diseases who recommended the patient's current antibiotic regimen along with acyclovir. [facility] Medical History (Updated 04/18/23 @ 10:[address] 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 Gastric reflux Gastritis GI bleed HFrEF (heart failure with reduced ejection fraction) High cholesterol History of CHF (congestive heart failure) History of deep vein thrombosis (DVT) of lower extremity History of echocardiogram History of edema History of heart attack History of irregular heartbeat History of non-ST elevation myocardial infarction (NSTEMI) (11/05/16) History of renal disease History of steroid therapy History of stress test Hyperlipidemia Insulin dependent diabetes mellitus Ischemic cardiomyopathy Leg cramps Localized edema Melena Morbid obesity with BMI of 40.0-44.9, adult Nondisp fracture of fifth left metatarsal bone with routine healing Nonrheumatic tricuspid (valve) insufficiency Nonsustained ventricular tachycardia Normocytic anemia 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 Other specified peripheral vascular diseases Paroxysmal atrial flutter Peripheral vascular occlusive disease Restless legs Shortness of breath on exertion Syncope TIA (transient ischemic attack) Type 2 diabetes mellitus Ulcer of left lower extremity with fat layer exposed Ulcer of right lower extremity Ulcer of right lower extremity with fat layer exposed Ulcer of right lower extremity with fat layer exposed Uncontrolled type 2 diabetes mellitus Walker as ambulation aid Walking difficulty due to ankle and foot Wears dentures Wears glasses Xerosis cutis Home Medications latanoprost 0.005 % eye drops 1 drp EACH EYE TID glaucoma 11/17/18 [History Last Taken 02/09/23] ropinirole 0.5 mg tablet 1 mg PO QHS legs 12/10/21 [History Last Taken 02/08/23] ondansetron 4 mg disintegrating tablet 4 mg PO Q6H PRN Nausea 03/16/22 [History Last Taken Unknown] albuterol sulfate 2.5 mg/3 mL (0.083 %) solution for nebulization 2.5 mg (3 mL) inhalation Q4H.RT PRN WHEEZING 30 days #360 mL 04/14/22 [Rx Last Taken 02/09/23] albuterol sulfate 90 mcg/actuation aerosol inhaler 2 puff inhalation Q6H PRN shortness of breath or wheezing #8.5 grams 04/16/22 [Rx Last Taken 02/09/23] dapagliflozin propanediol 10 mg tablet (Farxiga) 10 mg PO DAILY diabetes 04/18/22 [History Last Taken 02/09/23] nitroglycerin 0.4 mg sublingual tablet 0.4 mg sublingual Q5M PRN Chest Pain #25 tabs 04/21/22 [Rx Last Taken Unknown] dulaglutide 3 mg/0.5 mL subcutaneous pen injector (Trulicity) 3 mg subcut QWEEK diabetes 05/20/22 [History Last Taken 02/08/23] carvedilol 6.25 mg tablet 6.25 mg PO BID This is a dose increase #180 tabs 08/07/22 [Rx Last Taken 01/30/23 03:30] isosorbide mononitrate 60 mg tablet,extended release 24 hr 60 mg PO DAILY #90 t abs 08/07/22 [Rx Last Taken 01/30/23 03:30] insulin lispro 100 unit/mL subcutaneous pen (Humalog KwikPen (U-100) Insulin) 24 unit subcut TID blood sugar 10/30/22 [History Last Taken 02/09/23] insulin glargine-yfgn 100 unit/mL (3 mL) subcutaneous pen 40 unit subcut BID blood sugar 11/04/22 [History Last Taken 02/09/23] potassium chloride 20 mEq tablet,extended release(part/cryst) (Klor-Con M) 20 me q PO DAILY #90 tabs 11/13/22 [Rx Last Taken 02/09/23] nortriptyline 25 mg capsule 25 mg PO DAILY 11/24/22 [History Last Taken 02/09/23] furosemide 80 mg tablet (Lasix) 80 mg PO DAILY 01/21/23 [History Last Taken 02/09/23] gabapentin 300 mg capsule 900 mg PO Q8H 02/09/23 [History Last Taken 02/09/23] pantoprazole 40 mg tablet,delayed release See Rx Instructions .Route .COMPLEX #30 tabs 03/16/23 [Rx Last Taken Unknown] rosuvastatin 40 mg tablet 40 mg PO QHS Cholesterol #90 tabs 03/24/23 [Rx Last T aken Unknown] Allergy/AdvReac Type Severity Reaction Status Date / Time ceftriaxone sodium Allergy Rash Verified 04/08/23 14:17 [From Rocephin] milk AdvReac Diarrhea Verified 04/08/23 14:17 morphine AdvReac hallucinati Verified 04/08/23 14:17 ons Family History Father , Age 78 Prostate cancer Mother , Age 80 CVA (cerebral vascular accident) Sister Congestive heart failure Diabetes Hypertension Hyperlipidemia Atrial fibrillation CAD (coronary artery disease) Cardiac defibrillator in situ Sister Breast cancer Sister Breast cancer Brother CAD (coronary artery disease) Myocardial infarction Diabetes Brother Diabetes Brother , Age 74 COPD (chronic obstructive pulmonary disease) Sister Alive and well Surgical History H/O colonoscopy with polypectomy (11/2017) History of angioplasty of peripheral vessel History of cardiac catheterization History of colonoscopy History of coronary artery stent placement (12/15/14) History of detached retina repair History of electrophysiologic study (11/23/02) History of esophagogastroduodenoscopy (EGD) History of implantable cardiac defibrillator (ICD) (11/19/17) History of implantable cardiac defibrillator (ICD) History of left heart catheterization (12/06/18) History of radiofrequency ablation procedure for cardiac arrhythmia (07/01/11) ICD (implantable cardioverter-defibrillator) in place Social History household members: spouse housing: house current occupational status: retired pets and animals: Yes (2 dogs, 2 cats) Smoking Status: Former smoker pack-years: 20 how long ago did patient quit smokin years ago alcohol intake: never caffeine: Yes Type: coffee Number of servings: 1 ROS ROS Narrative 10 systems were reviewed with pertinent positives as noted in the HPI above. Physical Exam Const alert and no apparent distress Constitutional Narrative: BiPAP currently in place. General Appearance: cooperative HEENT normocephalic and head/scalp atraumatic Eyes PERRL, EOMs intact bilaterally and conjunctivae normal Neck supple General: trachea midline Chest inspection of chest normal Resp normal respiratory effort Auscultation: Negative for rales, rhonchi or wheezes Cardio regular rate and regular rhythm GI normal to inspection, nondistended, normoactive bowel sounds Extremity no clubbing, cyanosis or edema Skin General Skin Exam: venous stasis and dermatitis Neuro CN's II-XII intact bilaterally and no focal motor deficits Psych cooperative and affect normal Lab / Micro Data 04/18/23 04:35 04/18/23 04:35 Labs: Laboratory Results - last 24 hr 04/17/23 18:00: WBC 13.3 H, RBC 5.61, Hgb 10.5 L, Hct 38.1 L, MCV 67.9 L, MCH 18.7 L, MCHC 27.6 L, RDW Std Deviation 43.6, RDW Coeff of [place] 19.3 H, Plt Count 181, MPV 9.3, Immature Gran % (Auto) 0.400, Neut % (Auto) 87.7 H, Lymph % (Auto) 4.3 L, [place] % (Auto) 6.0, Eos % (Auto) 1.0, Baso % (Auto) 0.6, Absolute Neuts (auto) 11.6 H, Absolute Lymphs (auto) 0.57 L, Nucleated RBC % 0, Differential Comment SCANNED, Sodium 137, Potassium 3.0 L, Chloride 97 L, Carbon Dioxide 33.0 H, Anion Gap 7, BUN 38 H, Creatinine 1.51 H, Estim Creat Clear Calc 51.25, Est GFR (MDRD) Af Amer 58 L, Est GFR (MDRD) Non-Af 48 L, BUN/Creatinine Ratio 25.2 H , Glucose 180 H, Lactic Acid 2.2 H*, Calcium 9.2, Troponin I High Sens 92 H, B-Natriuretic Peptide 76.4 04/17/23 18:32: Urine Color Yellow, Urine Clarity Clear, Urine pH 5.0, Ur Specific [place] 1.010, Urine Protein 15 H, Urine Glucose (UA) 1000 H, Urine Ketones Negative, Urine Occult Blood 10 H, Urine Nitrite Negative, Urine Bilirubin Negative, Urine Urobilinogen Normal, Ur Leukocyte Esterase 100 H, Urine RBC 0 SEEN, Urine WBC 0-5 SEEN, Ur Squamous Epith Cells 0 SEEN, Urine Bacteria 0 SEEN, Urine Mucus 0 SEEN 04/17/23 20:01: Troponin I High Sens 93 H 04/17/23 21:47: PT 19.1 H, INR 1.6, APTT 33.2, D-Dimer Quant (PE/DVT) < 0.27 L 04/17/23 22:13: Lactic Acid 2.3 H*, Procalcitonin 0.32 H 04/18/23 04:35: WBC 21.5 H, RBC 4.38 L, Hgb 8.3 L, Hct 29.4 L, MCV 67.1 L, MCH 18.9 L, MCHC 28.2 L, RDW Std Deviation 43.3, RDW Coeff of [place] 18.5 H, Plt Count 140 L, MPV 9.0, Immature Gran % (Auto) 1.200 H, Neut % (Auto) 93.5 H, Lymph % (Auto) 2.4 L, [place] % (Auto) 2.1, Eos % (Auto) 0.5, Baso % (Auto) 0.3, Absolute Neuts (auto) 20.1 H, Absolute Lymphs (auto) 0.51 L, Nucleated RBC % 0, Differential Comment SCANNED, Sodium 138, Potassium 2.8 L, Chloride 102, Carbon Dioxide 25.0, Anion Gap 11, BUN 38 H, Creatinine 1.45 H, Estim Creat Clear Calc 52.79, Est GFR (MDRD) Af Amer 61, Est GFR (MDRD) Non-Af 50 L, BUN/Creatinine Ratio 26.2 H, Glucose 297 H, Calcium 7.1 L, Total Bilirubin 1.30 H, AST 18, ALT 16, Alkaline Phosphatase 57, Total Protein 6.2 L, Albumin 2.8 L, Globulin 3.4, Albumin/Globulin Ratio 0.8 L Micro: Microbiology 04/17/23 18:00 Blood Culture (Wb) - Anticubital Right Blood Culture - Preliminary 04/17/23 18:00 Blood Culture (Wb) - Anticubital Left Blood Culture - Preliminary 04/17/23 18:04 Mucosa - Nose SARS-CoV-2, Influenza & RSV (PCR) - Final ABG Data ABG results: ABG 04/17/23 20:39 Specimen Type ART Sample Site R Radial pH 7.53 H Bicarbonate Actual 29.9 H Total CO2 31 Base Excess 7 H O2 Saturation 97 O2 % 4.0 ABG pCO2 36.1 ABG pO2 79 Elijah Test Positive O2 Delivery Device Cannula Vent Mode Not entered Imagaing Radiology Impression Chest X-Ray 04/17/23 18:07 IMPRESSION: No radiographic evidence of acute cardiopulmonary disease. Electronically Signed: Diaz Keating DO at 18:18 EST , Chest/Abdomen/Pelvis CT 04/17/23 21:54 IMPRESSION: Mild colonic diverticulosis. Slightly prominent gastrohepatic node. Fatty umbilical hernia. Electronically Signed: Diaz Keating DO at 23:42 EST , Charges/Coding Visit Charges Inpatient E&M: 21031 Init Hosp L3
[2023-04-18 07:14] LABS: Ionized Calcium 4.13 mg/dL (4.36-5.20)
[2023-04-18 07:26] LABS: Allen Test Positive; Base Excess -1 mmol/L (-2 to +2); Bicarbonate 23.5 mmol/L (22-26); Blood Gas Specimen Type ART; Comment 19/15; O2 Delivery Device BiPAP; PEEP 15; PO2 76 mmHG (75-100); RR 12; SITE L Radial; SO2 95 % (95-99); Total Carbon Dioxide 25 mmol/L; pCO2 38.3 mmHg (35-45)
[2023-04-18 07:27] LABS: Troponin-I HS 79 pg/mL (3.0-78.0)
[2023-04-18 08:33] LABS: Partial Thromboplast Time 121.2 Seconds (24.1-36.2)
[2023-04-18] MEDS: Potassium Chloride 10mEq/100mL 10 MEQ/100 ML IV.SOLN. 100 MEQ IV BOLUS ×4 (09:06→14:25)
[2023-04-18] MEDS: Potassium Chloride Oral Tablet 20 MEQ 60 MEQ PO (09:47)
[2023-04-18] MEDS: Isosorbide Mononitrate 60 MG Tablet PO (09:49)
[2023-04-18] MEDS: MethylPREDNISolone 125 MG/2 ML Vial 60 MG IV (09:56)
[2023-04-18] MEDS: Insulin Glargine-YFGN 100 UNIT/ML Pen 20 UNIT SC ×2 (10:04→21:00)
[2023-04-18] MEDS: Vancomycin HCl 1,250 MG in 0.9% Normal Saline (250mL Bag) 250 ML 167 MG IV ×2 (10:06→20:56)
[2023-04-18] MEDS: 0.9% Saline Lock 10 ML Syringe IV ×2 (10:09→12:11)
[2023-04-18 10:27] LABS: Bedside Glucose 338 mg/dL (74-106)
--- NOTE | 2023-04-18 10:40 | PCM.PN.HOSP ---
Reason for Visit Reason for Visit: Diagnoses Sepsis, unspecified organism (04/17/23) Acidosis, unspecified (04/17/23) Metabolic encephalopathy (04/17/23) Chronic obstructive pulmonary disease with (acute) exacerbation (04/17/23) Acute respiratory failure with hypoxia (04/17/23) Fever, unspecified (04/17/23) Severe sepsis without septic shock (04/17/23) Other specified abnormal findings of blood chemistry (04/17/23) Subjective Subjective Patient seen at bedside this morning. Was sleeping with BiPAP on went into the room. Appeared very comfortable, no increased work of breathing noted. Patient appeared fatigued but was able to shake his head no when asked if he had any acute pain or discomfort. No other acute concerns this morning. Objective Data Objective Data Vital Signs: Vital Signs Temp Pulse Resp BP Pulse Ox O2 Del Method O2 Flow Rate 99.5 F H 79 14 127/79 H 99 Bi-pap 2 04/18/23 04:00 04/18/23 07:12 04/18/23 07:12 04/18/23 07:00 04/18/23 07:12 04/18/23 07:00 04/18/23 00:00 FiO2 30 04/18/23 07:12 Oxygen Flow Rate (L/min) 2 Oxygen Delivery Method Bi-pap Weight: 116.1 kg Body Mass Index (BMI) 38.9 Intake & Output: Intake and Output for Last 24 Hours 04/16/23 04/17/23 04/18/23 23:59 23:59 23:59 Intake Total 1860 / 1860 4381.83 / 4381.83 Output Total 300 / 300 Balance 1860 / 1860 4081.83 / 4081.83 Lab / Micro Data 04/18/23 04:35 04/18/23 04:35 Labs: Laboratory Results - last 24 hr 04/17/23 18:00: WBC 13.3 H, RBC 5.61, Hgb 10.5 L, Hct 38.1 L, MCV 67.9 L, MCH 18.7 L, MCHC 27.6 L, RDW Std Deviation 43.6, RDW Coeff of Galo 19.3 H, Plt Count 181, MPV 9.3, Immature Gran % (Auto) 0.400, Neut % (Auto) 87.7 H, Lymph % (Auto) 4.3 L, [place] % (Auto) 6.0, Eos % (Auto) 1.0, Baso % (Auto) 0.6, Absolute Neuts (auto) 11.6 H, Absolute Lymphs (auto) 0.57 L, Nucleated RBC % 0, Differential Comment SCANNED, Sodium 137, Potassium 3.0 L, Chloride 97 L, Carbon Dioxide 33.0 H, Anion Gap 7, BUN 38 H, Creatinine 1.51 H, Estim Creat Clear Calc 51.25, Est GFR (MDRD) Af Amer 58 L, Est GFR (MDRD) Non-Af 48 L, BUN/Creatinine Ratio 25.2 H, Glucose 180 H, Lactic Acid 2.2 H*, Calcium 9.2, Troponin I High Sens 92 H, B-Natriuretic Peptide 76.4 04/17/23 18:32: Urine Color Yellow, Urine Clarity Clear, Urine pH 5.0, Ur Specific [place] 1.010, Urine Protein 15 H, Urine Glucose (UA) 1000 H, Urine Ketones Negative, Urine Occult Blood 10 H, Urine Nitrite Negative, Urine Bilirubin Negative, Urine Urobilinogen Normal, Ur Leukocyte Esterase 100 H, Urine RBC 0 SEEN, Urine WBC 0-5 SEEN, Ur Squamous Epith Cells 0 SEEN, Urine Bacteria 0 SEEN, Urine Mucus 0 SEEN 04/17/23 20:01: Troponin I High Sens 93 H 04/17/23 21:47: PT 19.1 H, INR 1.6, APTT 33.2, D-Dimer Quant (PE/DVT) < 0.27 L 04/17/23 22:13: Lactic Acid 2.3 H*, Procalcitonin 0.32 H 04/18/23 04:35: WBC 21.5 H, RBC 4.38 L, Hgb 8.3 L, Hct 29.4 L, MCV 67.1 L, MCH 18.9 L, MCHC 28.2 L, RDW Std Deviation 43.3, RDW Coeff of [place]o 18.5 H, Plt Count 140 L, MPV 9.0, Immature Gran % (Auto) 1.200 H, Neut % (Auto) 93.5 H, Lymph % (Auto) 2.4 L, [place] % (Auto) 2.1, Eos % (Auto) 0.5, Baso % (Auto) 0.3, Absolute Neuts (auto) 20.1 H, Absolute Lymphs (auto) 0.51 L, Nucleated RBC % 0, Differential Comment SCANNED, Sodium 138, Potassium 2.8 L, Chloride 102, Carbon Dioxide 25.0, Anion Gap 11, BUN 38 H, Creatinine 1.45 H, Estim Creat Clear Calc 52.79, Est GFR (MDRD) Af Amer 61, Est GFR (MDRD) Non-Af 50 L, BUN/Creatinine Ratio 26.2 H, Glucose 297 H, Calcium 7.1 L, Total Bilirubin 1.30 H, AST 18, ALT 16, Alkaline Phosphatase 57, Total Protein 6.2 L, Albumin 2.8 L, Globulin 3.4, Albumin/Globulin Ratio 0.8 L 04/18/23 06:50: APTT 121.2 H*, Troponin I High Sens 79 H 04/18/23 07:10: Ionized Calcium 4.13 L 04/18/23 10:03: POC Glucose 338 H Micro: Microbiology 04/17/23 18:00 Blood Culture (Wb) - Anticubital Right Bacteria Detection (PCR) - Final Streptococcus agalactiae (B) 04/17/23 18:00 Blood Culture (Wb) - Anticubital Right Blood Culture - Preliminary 04/17/23 18:00 Blood Culture (Wb) - Anticubital Left Blood Culture - Preliminary 04/17/23 18:04 Mucosa - Nose SARS-CoV-2, Influenza & RSV (PCR) - Final ABG Data ABG results: ABG 04/17/23 04/18/23 20:39 07:22 Specimen Type ART ART Sample Site R Radial L Radial pH 7.53 H 7.40 Bicarbonate Actual 29.9 H 23.5 Total CO2 31 25 Base Excess 7 H -1 O2 Saturation 97 95 O2 % 4.0 30.0 ABG pCO2 36.1 38.3 ABG pO2 79 76 Elijah Test Positive Positive Respiration Rate 12 O2 Delivery Device Cannula BiPAP Vent Mode Not entered st POC PEEP 15 Clinical Comments Radiography Diagnostic Testing: Radiology Impression Chest X-Ray 04/17/23 18:07 IMPRESSION: No radiographic evidence of acute cardiopulmonary disease. Electronically Signed: Diaz Keating DO at 18:18 EST , Chest/Abdomen/Pelvis CT 04/17/23 21:54 IMPRESSION: Mild colonic diverticulosis. Slightly prominent gastrohepatic node. Fatty umbilical hernia. Electronically Signed: Diaz DO Rishabh at 23:42 EST Reading Location ID and State: [facility] / [place] Tel [phone], Service support , Physical Exam Const alert and no apparent distress Constitutional Narrative: Elderly male, obese, laying comfortably in bed, no acute distress. General Appearance: cooperative and comfortable HEENT normocephalic, head/scalp atraumatic, hearing grossly normal bilaterally and nasal mucous membranes and turbinates normal Eyes PERRL, EOMs intact bilaterally and conjunctivae normal Neck no lymphadenopathy and supple Lymph Lymphatic: no lymphadenopathy noted Chest inspection of chest normal Resp normal respiratory effort, normal air movement, no use of accessory muscles and clear to auscultation bilaterally Cardio regular rate, regular rhythm, no murmurs and peripheral pulses 2+ throughout GI normal to inspection, nondistended, normoactive bowel sounds, soft to palpation, non-tender and non-distended Back/Spine normal ROM Extremity normal to inspection and no pedal edema Skin no rashes or lesions noted Neuro no focal motor deficits Assessment & Plan Assessment/Plan (1) Sepsis with encephalopathy without septic shock: (2) Bacteremia due to group B Streptococcus: (3) DONNY (acute kidney injury): (4) Anemia: PLAN: Plan Patient is a 77-year-old male who presented to [facility] ED on 04/17/2023 with fevers and confusion. 1. Sepsis with encephalopathy without shock Presumed secondary to group B strep infection. Met sepsis criteria on admit with fever to 103.2F, WBC count 13.3, sinus tachycardia, hypoxia with tachypnea, encephalopathy, lactate 2.2. Unclear source infection. CT chest abdomen pelvis 04/17 showed no lung abnormalities, mild colonic diverticulosis with no other intra-abdominal abnormalities. No overt skin sores noted. UA noninfectious. S/p 1 L IV fluids in ED, blood pressures has remained stable. ? Trains Service Conductor following. ID consulted. Started on meropenem, vancomycin and acyclovir on admit per ID recs given unclear source of infection, discontinued meropenem and acyclovir on 04/18. Continue vancomycin, follow-up sensitivities. Monitor closely. 2. Group B Streptococcus bacteremia Blood cultures preliminarily +2/2 for group B strep, sensitivities pending. Unclear source of infection. ? ID consulted as above. Continue vancomycin, follow sensitivities. TTE pending. 3. DONNY Creatinine 1.51, BUN 38 on admit. Baseline creatinine 0.9-1.1. Suspect prerenal etiology in setting of sepsis. CT chest on pelvis 04/17 showed normal urinary bladder, no evidence of hydronephrosis. ? Creatinine 1.45 on 04/18, adequate urine output. Monitor BMP and urine output. Avoid nephrotoxins. 4. Chronic microcytic anemia, history of recent GI bleeds Hemoglobin 10.5 on admit, MCV 67. Baseline hemoglobin 8-10. History of iron deficiency anemia secondary to recent GI bleeds, last saw GI in 01/2023. Noted to have severely bleeding gastric polyps on EGD in 11/19, hemoglobin dropped to 6.1 requiring 2 units packed red blood cells with improvement. Repeat EGD and colonoscopy in 02/19 showed no active source of bleeding. Coumadin for history of DVT was held after hospitalization in October due to GI bleeds. ? Hemoglobin 8.3 on 04/18 after IV fluids. No active signs of bleeding. Monitor daily CBC. Iron studies ordered. Discontinued heparin drip on 04/18 as noted below, okay for Lovenox for DVT prophylaxis. 5. Elevated troponins Troponins 92 > 93 > 79 on admit. EKG with no acute changes. Patient initially reported chest pain possibly concerning for cardiac etiology, however pain was quite vague and patient was altered mentation as noted above. Elevated troponins very likely secondary to sepsis as noted above. ? Started on heparin drip on mission, discontinued on 04/18 given low concern for NSTEMI and high risk of GI bleed on full anticoagulation. Okay for Lovenox for DVT prophylaxis. 6. Hypokalemia ? Potassium 3.0 on admit. Replete as needed. 7. COPD with chronic hypoxic respiratory failure on home 2 L History of COPD, intermittently wears 2 L nasal cannula at home. Required BiPAP on admit, suspect due to mental status. Weaned to 2 L nasal cannula by evening of 04/17 with good oxygen saturations. Chest x-ray and CT chest abdomen pelvis with no lung abnormalities. ? Initiated on IV steroids on admission due to concern for acute exacerbation of COPD; discontinued on 04/18 as patient was on home oxygen requirements, no signs of COPD exacerbation. Continue to monitor. Chronic medical conditions: ? Type 2 diabetes mellitus: Home regimen of insulin glargine 40 units twice daily, Humalog 24 units 3 times daily, Dapagliflozin 10 mg daily, Trulicity 3 mg weekly. Will start Lantus 20 units twice daily plus sliding scale insulin while inpatient, adjust as needed. ? Hypertension: Holding home Coreg, Lasix, isosorbide mononitrate. ? Hyperlipidemia: Continue home statin. ? History of DVT: Coumadin discontinued in 10/2022 given GI bleeds as noted above. ? GERD: Continue home PPI. ? Restless leg syndrome: Continue home ropinirole. ? Glaucoma: Continue home eyedrops. ? JESSICA: Continue home PAP therapy. ? Obesity: BMI 38 on admit, encouraged lifestyle modifications. Complicates hospital course, care and prognosis. ? History of paroxysmal atrial flutter s/p ablation ? History of NSVT ? History of TIA ? Peripheral vascular disease with chronic stasis DVT prophylaxis: Lovenox CODE STATUS: Full code, unverified Expected disposition: TBD Total clinical time spent by myself addressing the patient's medical issues, reviewing all the data, and collaborating with patient's care team: 35 minutes. Charges/Coding Visit Charges Inpatient E&M: 35470 Subs Hosp L2
--- NOTE | 2023-04-18 11:25 | CASEMGMT ---
RN CM Face to Face with patient for initial transition planning/care coordination assessment. RN CM introduced self and role at [facility]. Patient lying in bed, alert and oriented, and daughter at bedside. Patient willing to participate in assessment and is able to answer all questions appropriately. Care providers, pharmacy, and demographics verified. Patient wishes to discharge home but willing to go to SNF if needed. Will monitor progress with therapy and course of treatment . Patient states he has no further needs or concerns at this time. CM to follow for discharge planning needs that may arise. PCP: Sukumar Specialists: Orlando, cardiologsit; Shaina, photographic colorist; Jamie, edger machine operator; Friend, GI Preferred Pharmacy: [facility] Insurance: [facility] Prescription Benefit: yes Living Will/HPOA: yes, Ila Devi LNOK: , daughter Living Arrangements: Patient lives with daughter and TONI in a single story home with ramp to enter. Patient is normally independent at home. is currently in TCU Transportation: self, daughter DME/HHC: Patient has shower chair, BSC, cane, walker, hospital bed, shmuel, grab bars, wheelchair, bipap, nebulizer, pulse ox, and glucometer and supplies. Patient has had [facility] HHC in the past. Disposition Plan: TBD, antiicipate HHC vs SNF pending progress with therapy and course of treatment. Autumn SHEIKH, RN, CM
[2023-04-18 11:38] LABS: Bedside Glucose 342 mg/dL (74-106)
[2023-04-18] MEDS: Pantoprazole Sodium 40 MG in 0.9% Normal Saline (100mL MB+) 100 ML 330 MG IV (12:03)
[2023-04-18] MEDS: Insulin Lispro 100 UNIT/ML INSULN.PEN SC ×3 (12:09→21:01)
--- NOTE | 2023-04-18 12:51 | PCM.CONS.C ---
Assessment & Plan Assessment/Plan (1) DONNY (acute kidney injury): (2) Bacteremia due to group B Streptococcus: (3) Sepsis: QUALIFIERS: Sepsis acute organ dysfunction status: with acute organ dysfunction Sepsis type: sepsis due to unspecified organism Severe sepsis acute organ dysfunction type: encephalopathy Severe sepsis shock status: without septic shock Qualified Code(s): A41.9 - Sepsis, unspecified organism; R65.20 - Severe sepsis without septic shock; G93.41 - Metabolic encephalopathy (4) JESSICA (obstructive sleep apnea): (5) ICD (implantable cardioverter-defibrillator) in place: PLAN: Plan 77-year-old patient, I saw this patient today at bedside and daughter were at bedside Patient with known history of CAD Prior inferior AK with [employer]CA, as a stenting LAD Last cardiac catheterization showed mild to moderate coronary atherosclerosis involving the LAD and left circumflex with collateralization from the left to the right side Repeat echocardiogram today showed LV function low normal EF around 50-55% with inferobasal hypokinesia consistent with prior AK Has a right-sided ICD no valvular vegetation noted Patient has sepsis noted white cell count elevated currently on antibiotic treatment Also had DONNY with a serum creatinine in the range of 1.45 Anemia. Leukocytosis He has no symptoms of chest pain. And currently has been on antibiotic he has a bacteremia due to group B Streptococcus Multiple other medical comorbidities with JESSICA, diabetes Cardiac care plan recommendation This patient has sepsis and currently has been on vancomycin/ciprofloxacin He does not have any active chest pain The elevated cardiac biomarkers with high sensitive troponin in the setting of sepsis. And DONNY I discussed in detail his cardiac condition with patient, family daughter as well as the nursing staff. And also a repeat echocardiogram which showed similar EF With no valvular vegetation. No further cardiac follow-up would be required at this time. HPI Consult Data Date of Consult: 04/19/23 HPI Narrative Reason for Consultation: Sepsis/DONNY/elevated trops HPI Narrative: Tim LONG, is a 77 M who presents [facility] Medical History (Updated 04/18/23 @ 10:[address] 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 Gastric reflux Gastritis GI bleed HFrEF (heart failure with reduced ejection fraction) High cholesterol History of CHF (congestive heart failure) History of deep vein thrombosis (DVT) of lower extremity History of echocardiogram History of edema History of heart attack History of irregular heartbeat History of non-ST elevation myocardial infarction (NSTEMI) (11/05/16) History of renal disease History of steroid therapy History of stress test Hyperlipidemia Insulin dependent diabetes mellitus Ischemic cardiomyopathy Leg cramps Localized edema Melena Morbid obesity with BMI of 40.0-44.9, adult Nondisp fracture of fifth left metatarsal bone with routine healing Nonrheumatic tricuspid (valve) insufficiency Nonsustained ventricular tachycardia Normocytic anemia 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 Other specified peripheral vascular diseases Paroxysmal atrial flutter Peripheral vascular occlusive disease Restless legs Shortness of breath on exertion Syncope TIA (transient ischemic attack) Type 2 diabetes mellitus Ulcer of left lower extremity with fat layer exposed Ulcer of right lower extremity Ulcer of right lower extremity with fat layer exposed Ulcer of right lower extremity with fat layer exposed Uncontrolled type 2 diabetes mellitus Walker as ambulation aid Walking difficulty due to ankle and foot Wears dentures Wears glasses Xerosis cutis Home Medications latanoprost 0.005 % eye drops 1 drp EACH EYE TID glaucoma 11/17/18 [History Last Taken 02/09/23] ropinirole 0.5 mg tablet 1 mg PO QHS legs 12/10/21 [History Last Taken 02/08/23] ondansetron 4 mg disintegrating tablet 4 mg PO Q6H PRN Nausea 03/16/22 [History Last Taken Unknown] albuterol sulfate 2.5 mg/3 mL (0.083 %) solution for nebulization 2.5 mg (3 mL) inhalation Q4H.RT PRN WHEEZING 30 days #360 mL 04/14/22 [Rx Last Taken 02/09/23] albuterol sulfate 90 mcg/actuation aerosol inhaler 2 puff inhalation Q6H PRN shortness of breath or wheezing #8.5 grams 04/16/22 [Rx Last Taken 02/09/23] dapagliflozin propanediol 10 mg tablet (Farxiga) 10 mg PO DAILY diabetes 04/18/22 [History Last Taken 02/09/23] nitroglycerin 0.4 mg sublingual tablet 0.4 mg sublingual Q5M PRN Chest Pain #25 tabs 04/21/22 [Rx Last Taken Unknown] dulaglutide 3 mg/0.5 mL subcutaneous pen injector (Trulicity) 3 mg subcut QWEEK diabetes 05/20/22 [History Last Taken 02/08/23] carvedilol 6.25 mg tablet 6.25 mg PO BID This is a dose increase #180 tabs 08/07/22 [Rx Last Taken 01/30/23 03:30] isosorbide mononitrate 60 mg tablet,extended release 24 hr 60 mg PO DAILY #90 tabs 08/07/22 [Rx Last Taken 01/30/23 03:30] insulin lispro 100 unit/mL subcutaneous pen (Humalog KwikPen (U-100) Insulin) 24 unit subcut TID blood sugar 10/30/22 [History Last Taken 02/09/23] insulin glargine-yfgn 100 unit/mL (3 mL) subcutaneous pen 40 unit subcut BID blood sugar 11/04/22 [History Last Taken 02/09/23] potassium chloride 20 mEq tablet,extended release(part/cryst) (Klor-Con M) 20 meq PO DAILY #90 tabs 11/13/22 [Rx Last Taken 02/09/23] nortriptyline 25 mg capsule 25 mg PO DAILY 11/24/22 [History Last Taken 02/09/23] furosemide 80 mg tablet (Lasix) 80 mg PO DAILY 01/21/23 [History Last Taken 02/09/23] gabapentin 300 mg capsule 900 mg PO Q8H 02/09/23 [History Last Taken 02/09/23] pantoprazole 40 mg tablet,delayed release See Rx Instructions .Route .COMPLEX #30 tabs 03/16/23 [Rx Last Taken Unknown] rosuvastatin 40 mg tablet 40 mg PO QHS Cholesterol #90 tabs 03/24/23 [Rx Last Taken Unknown] Allergy/AdvReac Type Severity Reaction Status Date / Time ceftriaxone sodium Allergy Rash Verified 04/08/23 14:17 [From Rocephin] milk AdvReac Diarrhea Verified 04/08/23 14:17 morphine AdvReac hallucinati Verified 04/08/23 14:17 ons Family History Father , Age 78 Prostate cancer Mother , Age 80 CVA (cerebral vascular accident) Sister Congestive heart failure Diabetes Hypertension Hyperlipidemia Atrial fibrillation CAD (coronary artery disease) Cardiac defibrillator in situ Sister Breast cancer Sister Breast cancer Brother CAD (coronary artery disease) Myocardial infarction Diabetes Brother Diabetes Brother , Age 74 COPD (chronic obstructive pulmonary disease) Sister Alive and well Surgical History H/O colonoscopy with polypectomy (11/2017) History of angioplasty of peripheral vessel History of cardiac catheterization History of colonoscopy History of coronary artery stent placement (12/15/14) History of detached retina repair History of electrophysiologic study (11/23/02) History of esophagogastroduodenoscopy (EGD) History of implantable cardiac defibrillator (ICD) (11/19/17) History of implantable cardiac defibrillator (ICD) History of left heart catheterization (12/06/18) History of radiofrequency ablation procedure for cardiac arrhythmia (07/01/11) ICD (implantable cardioverter-defibrillator) in place Social History household members: spouse housing: house current occupational status: retired pets and animals: Yes (2 dogs, 2 cats) Smoking Status: Former smoker pack-years: 20 how long ago did patient quit smokin years ago alcohol intake: never caffeine: Yes Type: coffee Number of servings: 1 Risk Stratification Risk Stratification Applicable: Yes Age >/= 65: Yes >/= 3 CAD Risk Factors (HTN, HLD, DM, family hx of CAD, or current smoker): Yes Aspirin Use in the Past 7 Days: Yes Severe Angina (>/= episodes in 24 hours): No EKG ST Changes >/= 0.5mm: No Positive Cardiac Marker: Yes MICAH Risk Stratification Score: 4 MICAH % Risk: 20% Risk Objective Data Vital Signs: Vital Signs Temp Pulse Resp BP Pulse Ox O2 Del Method O2 Flow Rate 99.8 F H 78 19 H 94/60 98 Nasal Cannula 2 04/18/23 08:00 04/18/23 11:00 04/18/23 11:00 04/18/23 11:00 04/18/23 11:00 04/18/23 11:00 04/18/23 11:00 FiO2 30 04/18/23 09:00 Oxygen Flow Rate (L/min) 2 Oxygen Delivery Method Nasal Cannula Weight: 255 lb 15.307 oz Body Mass Index (BMI) 38.9 Intake & Output: Intake and Output for Last 24 Hours 04/16/23 04/17/23 04/18/23 23:59 23:59 23:59 Intake Total 1860 / 1860 4756.83 / 4756.83 Output Total 1300 / 1300 Balance 1860 / 1860 3456.83 / 3456.83 Lab / Micro Data 04/19/23 05:35 04/19/23 05:35 Labs: Laboratory Results - last 24 hr 04/17/23 18:00: WBC 13.3 H, RBC 5.61, Hgb 10.5 L, Hct 38.1 L, MCV 67.9 L, MCH 18.7 L, MCHC 27.6 L, RDW Std Deviation 43.6, RDW Coeff of Galo 19.3 H, Plt Count 181, MPV 9.3, Immature Gran % (Auto) 0.400, Neut % (Auto) 87.7 H, Lymph % (Auto) 4.3 L, Kent % (Auto) 6.0, Eos % (Auto) 1.0, Baso % (Auto) 0.6, Absolute Neuts (auto) 11.6 H, Absolute Lymphs (auto) 0.57 L, Nucleated RBC % 0, Differential Comment SCANNED, Sodium 137, Potassium 3.0 L, Chloride 97 L, Carbon Dioxide 33.0 H, Anion Gap 7, BUN 38 H, Creatinine 1.51 H, Estim Creat Clear Calc 51.25, Est GFR (MDRD) Af Amer 58 L, Est GFR (MDRD) Non-Af 48 L, BUN/Creatinine Ratio 25.2 H, Glucose 180 H, Lactic Acid 2.2 H*, Calcium 9.2, Troponin I High Sens 92 H, B-Natriuretic Peptide 76.4 04/17/23 18:32: Urine Color Yellow, Urine Clarity Clear, Urine pH 5.0, Ur Specific Roy 1.010, Urine Protein 15 H, Urine Glucose (UA) 1000 H, Urine Ketones Negative, Urine Occult Blood 10 H, Urine Nitrite Negative, Urine Bilirubin Negative, Urine Urobilinogen Normal, Ur Leukocyte Esterase 100 H, Urine RBC 0 SEEN, Urine WBC 0-5 SEEN, Ur Squamous Epith Cells 0 SEEN, Urine Bacteria 0 SEEN, Urine Mucus 0 SEEN 04/17/23 20:01: Troponin I High Sens 93 H 04/17/23 21:47: PT 19.1 H, INR 1.6, APTT 33.2, D-Dimer Quant (PE/DVT) < 0.27 L 04/17/23 22:13: Lactic Acid 2.3 H*, Procalcitonin 0.32 H 04/18/23 04:35: WBC 21.5 H, RBC 4.38 L, Hgb 8.3 L, Hct 29.4 L, MCV 67.1 L, MCH 18.9 L, MCHC 28.2 L, RDW Std Deviation 43.3, RDW Coeff of Galo 18.5 H, Plt Count 140 L, MPV 9.0, Immature Gran % (Auto) 1.200 H, Neut % (Auto) 93.5 H, Lymph % (Auto) 2.4 L, Kent % (Auto) 2.1, Eos % (Auto) 0.5, Baso % (Auto) 0.3, Absolute Neuts (auto) 20.1 H, Absolute Lymphs (auto) 0.51 L, Nucleated RBC % 0, Differential Comment SCANNED, Sodium 138, Potassium 2.8 L, Chloride 102, Carbon Dioxide 25.0, Anion Gap 11, BUN 38 H, Creatinine 1.45 H, Estim Creat Clear Calc 52.79, Est GFR (MDRD) Af Amer 61, Est GFR (MDRD) Non-Af 50 L, BUN/Creatinine Ratio 26.2 H, Glucose 297 H, Calcium 7.1 L, Total Bilirubin 1.30 H, AST 18, ALT 16, Alkaline Phosphatase 57, Total Protein 6.2 L, Albumin 2.8 L, Globulin 3.4, Albumin/Globulin Ratio 0.8 L 04/18/23 06:50: APTT 121.2 H*, Troponin I High Sens 79 H 04/18/23 07:10: Ionized Calcium 4.13 L 04/18/23 09:25: Blood Type AB POSITIVE, Antibody Screen NEGATIVE 04/18/23 10:03: POC Glucose 338 H 04/18/23 11:18: POC Glucose 342 H Micro: Microbiology 04/17/23 18:00 Blood Culture (Wb) - Anticubital Right Bacteria Detection (PCR) - Final Streptococcus agalactiae (B) 04/17/23 18:00 Blood Culture (Wb) - Anticubital Right Blood Culture - Preliminary 04/17/23 18:00 Blood Culture (Wb) - Anticubital Left Blood Culture - Preliminary 04/17/23 18:04 Mucosa - Nose SARS-CoV-2, Influenza & RSV (PCR) - Final ABG Data ABG results: ABG 04/17/23 04/18/23 20:39 07:22 Specimen Type ART ART Sample Site R Radial L Radial pH 7.53 H 7.40 Bicarbonate Actual 29.9 H 23.5 Total CO2 31 25 Base Excess 7 H -1 O2 Saturation 97 95 O2 % 4.0 30.0 ABG pCO2 36.1 38.3 ABG pO2 79 76 Elijah Test Positive Positive Respiration Rate 12 O2 Delivery Device Cannula BiPAP Vent Mode Not entered st POC PEEP 15 Clinical Comments Cardiology Labs/Tests 04/17/23 18:00: WBC 13.3 H, RBC 5.61, Hgb 10.5 L, Hct 38.1 L, MCV 67.9 L, MCH 18.7 L, MCHC 27.6 L, Plt Count 181, MPV 9.3, Immature Gran % (Auto) 0.400, Neut % (Auto) 87.7 H, Lymph % (Auto) 4.3 L, Kent % (Auto) 6.0, Eos % (Auto) 1.0, Baso % (Auto) 0.6, Absolute Neuts (auto) 11.6 H, Nucleated RBC % 0, Sodium 137, Potassium 3.0 L, Chloride 97 L, Carbon Dioxide 33.0 H, Anion Gap 7, BUN 38 H, Creatinine 1.51 H, Est GFR (MDRD) Af Amer 58 L, Est GFR (MDRD) Non-Af 48 L, BUN/Creatinine Ratio 25.2 H, Glucose 180 H, Lactic Acid 2.2 H*, Calcium 9.2, B-Natriuretic Peptide 76.4 04/17/23 18:32: Urine Color Yellow, Urine Clarity Clear, Urine pH 5.0, Ur Specific Roy 1.010, Urine Protein 15 H, Urine Glucose (UA) 1000 H, Urine Ketones Negative, Urine Occult Blood 10 H, Urine Nitrite Negative, Urine Bilirubin Negative, Urine Urobilinogen Normal, Ur Leukocyte Esterase 100 H, Urine RBC 0 SEEN, Urine WBC 0-5 SEEN 04/17/23 20:39: pH 7.53 H, Bicarbonate Actual 29.9 H, Base Excess 7 H, O2 Saturation 97, ABG pCO2 36.1, ABG pO2 79, Elijah Test Positive 04/17/23 21:47: PT 19.1 H, INR 1.6, APTT 33.2, D-Dimer Quant (PE/DVT) < 0.27 L 04/17/23 22:13: Lactic Acid 2.3 H* 04/18/23 04:35: WBC 21.5 H, RBC 4.38 L, Hgb 8.3 L, Hct 29.4 L, MCV 67.1 L, MCH 18.9 L, MCHC 28.2 L, Plt Count 140 L, MPV 9.0, Immature Gran % (Auto) 1.200 H, Neut % (Auto) 93.5 H, Lymph % (Auto) 2.4 L, Kent % (Auto) 2.1, Eos % (Auto) 0.5, Baso % (Auto) 0.3, Absolute Neuts (auto) 20.1 H, Nucleated RBC % 0, Sodium 138, Potassium 2.8 L, Chloride 102, Carbon Dioxide 25.0, Anion Gap 11, BUN 38 H, Creatinine 1.45 H, Est GFR (MDRD) Af Amer 61, Est GFR (MDRD) Non-Af 50 L, BUN/Creatinine Ratio 26.2 H, Glucose 297 H, Calcium 7.1 L, Total Bilirubin 1.30 H 04/18/23 06:50: APTT 121.2 H* 04/18/23 07:10: Ionized Calcium 4.13 L 04/18/23 07:22: pH 7.40, Bicarbonate Actual 23.5, Base Excess -1, O2 Saturation 95, ABG pCO2 38.3, ABG pO2 76, Elijah Test Positive Rhythm: EKG: ECHO: Stress Test: Cardiac Cath: PCI: CT Surgery: Holter monitor: EPS: PPM: CXR: Chest CT Scan: Radiography Diagnostic Testing: Radiology Impression Chest X-Ray 04/17/23 18:07 IMPRESSION: No radiographic evidence of acute cardiopulmonary disease. Electronically Signed: Diaz Keating at 18:18 EST , Chest/Abdomen/Pelvis CT 04/17/23 21:54 IMPRESSION: Mild colonic diverticulosis. Slightly prominent gastrohepatic node. Fatty umbilical hernia. Electronically Signed: Diaz Keating at 23:42 EST , Echocardiogram 04/18/23 01:19 Interpretation Summary The estimated ejection fraction is 50-55% %. Low Normal EF Mild Infero basal Hypokinesia ICD/Pacer Lead noted on R.Side No Valvular vegetation Mild MR Moderate TR Ordering Physician: Ethan Wright Referring Physician: Tomás Patino Performed By: Joana Kwok, L[employer], RVT
[2023-04-18 13:20] LABS: Ferritin 16 ng/mL (26-388); Iron 26 ug/dL (65-175); Iron Binding Capacity,Total 392 ug/dL (250-450); PERCENT IRON SATURATION 6.6 % (15.0-55.0)
--- NOTE | 2023-04-18 13:40 | CASEMGMT ---
Social Work SW met w/pt in regard to discharge plan. Pt had informed CM would like to go to TCU at discharge. SW did leave a voicemail with the referral, however there may not be a bed available. SW let pt know this. SW did provide to pt a [facility] w/pt's insurance, in pt's preferred geographic area and complete w/quality and resource use data. Pt states his went to [facility] in August or September and it was not a good experience. Due to this they do not have a good impression of snf facilities. SW did let pt know if TCU is full we could try [facility] or [facility] as they both have transitional units as well. Pt states understanding. SW will continue to follow, will follow up Thursday regarding referrals. SHARMILA Frank
--- NOTE | 2023-04-18 14:21 | RAD_ITS ---
EXAM: XR CHEST, 1 VIEW CLINICAL INDICATION: SOB TECHNIQUE: Frontal view of the chest. COMPARISON: XR Chest dated 04/17/2023 FINDINGS: LUNGS AND PLEURAL SPACES: Normal. No consolidation or edema. No pneumothorax. No effusion. HEART: Normal heart size. MEDIASTINUM: No mediastinal or hilar mass. BONES/JOINTS: No acute abnormality. TUBES, LINES AND DEVICES: Cardiac defibrillator wire remains in place. RAD/Chest 1 View (Portable) IMPRESSION: No acute cardiopulmonary abnormality. No interval change. Electronically Signed: Bob Conrad MD at 14:52 EST ,
--- NOTE | 2023-04-18 14:45 | NURSING ---
pt c/o severe SOB, face is flushed and he is gasping open mouthed. returned to Bipap. right chest diminshed but clear, left chest absent breath sds. Stat CXR ordered. repositioned in bed to be more upright, bed into reverse trendelenberg [address] Gallo aware. 1500 pt cont c/o SOB, reassurance given 1515 pt states he is feeling much better . no c/o at this time
[2023-04-18 14:58] LABS: Magnesium 1.7 mg/dL (1.6-2.6); Phosphorus 4.2 mg/dL (2.5-4.9)
[2023-04-18] MEDS: Magnesium Sulfate 2 GM in Dextrose 5%-Water (100mL Bag) 100 ML IV (15:55)
[2023-04-18] MEDS: Insulin Lispro 100 UNIT/ML INSULN.PEN 15 UNIT SC (16:35)
[2023-04-18] MEDS: Latanoprost 0.005% 1 Bottle 1 DRP EACH EYE (20:59)
[2023-04-18] MEDS: Gabapentin 300 MG Capsule 900 MG PO (20:59)
[2023-04-18] MEDS: Nortriptyline 25 MG Capsule PO (20:59)
[2023-04-18] MEDS: Pramipexole Di-HCl 0.5 MG Tablet PO (20:59)
[2023-04-18] MEDS: Atorvastatin Calcium 80 MG Tablet PO (21:00)
--- NOTE | 2023-04-18 23:34 | CPS ---
Patient set up on own PAP machine for the night.
[2023-04-19] VITALS (15 sets, daily range): BP systolic 104–127; BP diastolic 66–82; PULSE 84–99; RESP 12–20; TEMP 35.7–36.4; O2SAT 93–100; BMI 40.5
[2023-04-19 05:04] LABS: Bedside Glucose 404 mg/dL (74-106)
[2023-04-19 05:04] LABS: Bedside Glucose 395 mg/dL (74-106)
[2023-04-19] MEDS: Gabapentin 300 MG Capsule 900 MG PO ×2 (05:30→20:33)
[2023-04-19 05:49] LABS: Hematocrit 29.4 % (40-54); Mean Corp Hgb Conc 27.2 g/dL (32-36); Mean Corpuscular Hgb 18.7 pg (27.0-32.0); Mean Corpuscular Volume 68.7 fL (80-94); Mean Platelet Vol. 9.6 fl (6.2-12.0); Platelet Count 154 K/mm3 (150-450); RBC Distribution Width SD 45.9 fl (35.1-43.9); Red Blood Count 4.28 M/mm3 (4.6-6.2); White Blood Count 14.4 K/mm3 (4.4-11.0)
--- NOTE | 2023-04-19 05:49 | PCM.PN.INT ---
Assessment & Plan Assessment/Plan (1) Sepsis: QUALIFIERS: Sepsis acute organ dysfunction status: with acute organ dysfunction Sepsis type: sepsis due to unspecified organism Severe sepsis acute organ dysfunction type: encephalopathy Severe sepsis shock status: without septic shock Qualified Code(s): A41.9 - Sepsis, unspecified organism; R65.20 - Severe sepsis without septic shock; G93.41 - Metabolic encephalopathy PLAN: Plan RECOMMENDATIONS: 1. Continue antimicrobials as ordered. 2. Continue nocturnal PAP therapy per home regimen. 3. Supplemental oxygen, if needed, to maintain saturations at or above 90%. 4. Encourage incentive spirometer use and mobilize patient as tolerated. IMPRESSIONS: 1. Sepsis The patient presented with sepsis due to gram-positive bacteremia with unclear source with acute sepsis related organ dysfunction as evidenced by lactic acidemia. The patient did receive supplemental IV fluids and remains hemodynamically stable. There is no need for vasopressor support. Recommend continuing antimicrobials per ID recommendations. Obtain echocardiogram to evaluate for any form of valvular vegetations given gram-positive bacteremia. 2. Acute kidney injury Improving. Most likely prerenal in etiology in the setting #1. Continue to monitor urine output for now. There is no current indication for renal replacement therapy. 3. Anemia The patient was likely hemoconcentrated on presentation. Hemoglobin is stable. Continue PPI therapy. Continue to monitor H&H and transfuse if hemoglobin drops below 7 g/dL. 4. History of obstructive sleep apnea Continue nocturnal PAP therapy per home regimen. 5. History of hypertension/hyperlipidemia/obesity/diabetes mellitus/history of DVT/paroxysmal atrial flutter Complicates care, management, recovery and prognosis. Continue home medications as indicated. Remainder of supportive care as noted above. This note was generated with [employer] dictation software. It may contain incorrect words, spelling, and punctuation that were not noted in checking the note before signing. Subjective Subjective The patient was seen and examined at the bedside this morning. Events from the last 24 hours have been reviewed. The patient is currently afebrile, hemodynamically stable and maintaining appropriate oxygen saturations on 2 L/min via nasal cannula. The patient is documented to be overall net +2.9 L for the hospitalization. The patient once again tolerated PAP therapy overnight. White count has improved to 14,000 this morning. Creatinine is mildly improved at 1.38. Objective Data Objective Data The patient's most recent lab work, culture data and imaging studies have all been personally reviewed. Preliminary urine cultures dated April 17 were positive for group B streptococcus. Surface echocardiogram demonstrated a mildly dilated LV with an ejection fraction of 50 to 55%. The left atrium was mildly enlarged. Vital Signs: Vital Signs Temp Pulse Resp BP Pulse Ox O2 Del Method O2 Flow Rate 97.4 F L 87 18 117/74 100 Nasal Cannula 2 04/19/23 00:00 04/19/23 05:00 04/19/23 05:00 04/19/23 05:00 04/19/23 05:12 04/19/23 05:12 04/19/23 05:12 FiO2 30 04/19/23 05:00 Oxygen Flow Rate (L/min) 2 Oxygen Delivery Method Nasal Cannula Weight: 266 lb 12.149 oz Body Mass Index (BMI) 40.5 Intake & Output: Intake and Output for Last 24 Hours 04/17/23 04/18/23 04/19/23 23:59 23:59 23:59 Intake Total 1860 / 1860 5345.83 / 5345.83 Output Total 3400 / 3400 900 / 900 Balance 1860 / 1860 1945.83 / 1945.83 -900 / -900 Lab / Micro Data Attestation: I reviewed the patient's lab results. 04/20/23 05:25 04/20/23 05:25 Labs: Laboratory Results - last 24 hr 04/18/23 04:35: Iron 26 L, TIBC 392, Iron Saturation 6.6 L, Ferritin 16 L 04/18/23 06:50: APTT 121.2 H*, Phosphorus 4.2, Magnesium 1.7, Troponin I High Sens 79 H 04/18/23 07:10: Ionized Calcium 4.13 L 04/18/23 09:25: Blood Type AB POSITIVE, Antibody Screen NEGATIVE 04/18/23 10:03: POC Glucose 338 H 04/18/23 11:18: POC Glucose 342 H 04/18/23 15:57: POC Glucose 404 H 04/18/23 20:59: POC Glucose 395 H Micro: Microbiology 04/17/23 18:00 Blood Culture (Wb) - Anticubital Right Bacteria Detection (PCR) - Final Streptococcus agalactiae (B) 04/17/23 18:00 Blood Culture (Wb) - Anticubital Right Blood Culture - Preliminary 04/17/23 18:00 Blood Culture (Wb) - Anticubital Left Blood Culture - Preliminary 04/17/23 18:04 Mucosa - Nose SARS-CoV-2, Influenza & RSV (PCR) - Final ABG Data ABG results: ABG 04/18/23 07:22 Specimen Type ART Sample Site L Radial pH 7.40 Bicarbonate Actual 23.5 Total CO2 25 Base Excess -1 O2 Saturation 95 O2 % 30.0 ABG pCO2 38.3 ABG pO2 76 Elijah Test Positive Respiration Rate 12 O2 Delivery Device BiPAP Vent Mode st POC PEEP 15 Clinical Comments Radiography Diagnostic Testing: Radiology Impression Echocardiogram 04/18/23 01:19 Interpretation Summary The estimated ejection fraction is 50-55% %. Low Normal EF Mild Infero basal Hypokinesia ICD/Pacer Lead noted on R.Side No Valvular vegetation Mild MR Moderate TR Ordering Physician: Ethan Townsend Referring Physician: Tomás Patino Performed By: Joana Kwok, EMMA, RVT Chest X-Ray 04/18/23 14:21 IMPRESSION: No acute cardiopulmonary abnormality. No interval change. Electronically Signed: Bob Conrad MD at 14:52 EST , Physical Exam Const alert, oriented x3 and no apparent distress General Appearance: cooperative HEENT normocephalic and head/scalp atraumatic Eyes PERRL, EOMs intact bilaterally and conjunctivae normal Neck supple General: trachea midline Chest inspection of chest normal Resp normal respiratory effort Auscultation: Negative for rales, rhonchi or wheezes Cardio regular rate and regular rhythm GI normal to inspection, nondistended, normoactive bowel sounds Extremity no clubbing, cyanosis or edema Skin General Skin Exam: venous stasis and dermatitis Neuro CN's II-XII intact bilaterally and no focal motor deficits Psych cooperative and affect normal Charges/Coding Visit Charges Inpatient E&M: 02119 Subs Hosp L2
[2023-04-19 06:07] LABS: Anion Gap 4 (5-15); BUN 44 mg/dL (7-18); BUN/Creat Ratio 31.9 RATIO (10-20); Calcium,Total 7.5 mg/dL (8.5-10.1); Chloride 106 mmol/L (98-107); Creatinine, Serum 1.38 mg/dL (0.70-1.30); EST Glomerular Filtration Rate 53 mL/min (>60); Est Glom Filt Rate - Afr Amer 64 mL/min (>60); Estimated Creatinine Clearance 56.71 ml/min; Glucose 357 mg/dL (74-106); Potassium 3.6 mmol/L (3.5-5.1); Sodium Level 139 mmol/L (136-145)
[2023-04-19] MEDS: Insulin Glargine-YFGN 100 UNIT/ML Pen 35 UNIT SC ×2 (08:33→20:34)
[2023-04-19] MEDS: Insulin Lispro 100 UNIT/ML INSULN.PEN SC ×4 (08:34→20:35)
[2023-04-19] MEDS: Insulin Lispro 100 UNIT/ML INSULN.PEN 18 UNIT SC ×3 (08:34→17:09)
[2023-04-19] MEDS: Potassium Chloride Oral Tablet 20 MEQ PO (08:38)
[2023-04-19] MEDS: Isosorbide Mononitrate 60 MG Tablet PO (08:38)
[2023-04-19 08:39] LABS: Bedside Glucose 313 mg/dL (74-106)
[2023-04-19] MEDS: Enoxaparin 40 MG/0.4 ML Syringe SC (08:39)
[2023-04-19] MEDS: Pantoprazole Sodium 40 MG in 0.9% Normal Saline (100mL MB+) 100 ML 330 MG IV (09:08)
[2023-04-19] MEDS: 0.9% Saline Lock 10 ML Syringe IV (09:08)
[2023-04-19 09:47] LABS: Vancomycin, Trough Level 21.3 ug/mL (5.0-15.0)
--- NOTE | 2023-04-19 09:55 | PCM.RX.CS ---
Consult Antibiotic Management Pharmacy has been consulted to manage selected antibiotic: Vancomycin Type of Intervention Type of Consult: Follow-up Suspected Infection Suspected Infection: Sepsis and Bacteremia Prior Doses of Antibiotics Prior Doses of Antibiotics Received/Current Regimen: Vancomycin 1250 mg IV given 04/18 @1006, and 04/18 @ 2055 Labs Labs: Sodium 139 mmol/L (136-145) 04/19/23 05:35 Potassium 3.6 mmol/L (3.5-5.1) 04/19/23 05:35 Chloride 106 mmol/L (98-107) 04/19/23 05:35 Carbon Dioxide 29.0 mmol/L (21.0-32.0) 04/19/23 05:35 Anion Gap 4 (5-15) L 04/19/23 05:35 BUN 44 mg/dL (7-18) H 04/19/23 05:35 Creatinine 1.38 mg/dL (0.70-1.30) H 04/19/23 05:35 Est GFR (MDRD) Af Amer 64 mL/min (>60) 04/19/23 05:35 Est GFR (MDRD) Non-Af 53 mL/min (>60) L 04/19/23 05:35 BUN/Creatinine Ratio 31.9 RATIO (10-20) H 04/19/23 05:35 Glucose 357 mg/dL (74-106) H 04/19/23 05:35 Vancomycin Trough 21.3 ug/mL (5.0-15.0) H 04/19/23 09:05 Microbiology Microbiology: Microbiology 04/17/23 18:00 Blood Culture (Wb) - Anticubital Right Bacteria Detection (PCR) - Final Streptococcus agalactiae (B) 04/17/23 18:00 Blood Culture (Wb) - Anticubital Right Blood Culture - Preliminary Streptococcus agalactiae (B) 04/17/23 18:00 Blood Culture (Wb) - Anticubital Left Blood Culture - Preliminary 04/17/23 18:04 Mucosa - Nose SARS-CoV-2, Influenza & RSV (PCR) - Final Dosing Weight Weight used for dosin kg Estimated Creatinine Clearance Estimated Creatinine Clearance: ~56 Goal Trough Goal Trough: 15-20 mcg/mL Pharmacy Plan for Drug Dosing Pharmacy Plan for Drug Dosing: Vancomycin trough = 21.3 and was drawn 12 hours after previous dose, hold vancomycin with random level in 12 hours and redose as required according to level. Pharmacy Service will continue to monitor and adjust dosing as required. Follow-Up Labs Follow-Up Labs: Trough: Vancomycin Date/Time Labs Ordered Labs to be done on [date and time ordered]: 04/19/23 @ 2100
--- NOTE | 2023-04-19 11:12 | PCM.PN.HOSP ---
Reason for Visit Reason for Visit: Diagnoses Sepsis, unspecified organism (04/17/23) Streptococcus, group B, as the cause of diseases classified elsewhere (04/17/23) Anemia, unspecified (04/17/23) Acidosis, unspecified (04/17/23) Metabolic encephalopathy (04/17/23) Chronic obstructive pulmonary disease with (acute) exacerbation (04/17/23) Acute respiratory failure with hypoxia (04/17/23) Acute kidney failure, unspecified (04/17/23) Fever, unspecified (04/17/23) Severe sepsis without septic shock (04/17/23) Bacteremia (04/17/23) Other specified abnormal findings of blood chemistry (04/17/23) Subjective Subjective Patient seen at bedside this morning. Sitting up comfortably in bed, conversing normally, no acute distress. Breathing comfortably on 2 L nasal cannula this morning. Patient denies any shortness of breath. Denies any other pain or discomfort today. Has been eating and drinking well since yesterday afternoon. He does feel more thirsty today than normal and thinks this may be due to his high blood sugars over the past year or so. He denies any fevers or chills. No other acute concerns this morning. Objective Data Objective Data Vital Signs: Vital Signs Temp Pulse Resp BP Pulse Ox O2 Del Method O2 Flow Rate 96.4 F L 84 17 112/78 94 Nasal Cannula 2 04/19/23 08:00 04/19/23 08:00 04/19/23 08:00 04/19/23 08:00 04/19/23 11:08 04/19/23 11:08 04/19/23 11:08 FiO2 30 04/19/23 05:00 Oxygen Flow Rate (L/min) 2 Oxygen Delivery Method Nasal Cannula Weight: 121 kg Body Mass Index (BMI) 40.5 Intake & Output: Intake and Output for Last 24 Hours 04/17/23 04/18/23 04/19/23 23:59 23:59 23:59 Intake Total 1860 / 1860 5445.83 / 5445.83 590 / 590 Output Total 3400 / 3400 1400 / 1400 Balance 1860 / 1860 2045.83 / 2045.83 -810 / -810 Lab / Micro Data 04/19/23 05:35 04/19/23 05:35 Labs: Laboratory Results - last 24 hr 04/18/23 04:35: Iron 26 L, TIBC 392, Iron Saturation 6.6 L, Ferritin 16 L 04/18/23 06:50: Phosphorus 4.2, Magnesium 1.7 04/18/23 11:18: POC Glucose 342 H 04/18/23 15:57: POC Glucose 404 H 04/18/23 20:59: POC Glucose 395 H 04/19/23 05:35: WBC 14.4 H, RBC 4.28 L, Hgb 8.0 L, Hct 29.4 L, MCV 68.7 L, MCH 18.7 L, MCHC 27.2 L, RDW Std Deviation 45.9 H, RDW Coeff of Galo 19.0 H, Plt Count 154, MPV 9.6, Sodium 139, Potassium 3.6, Chloride 106, Carbon Dioxide 29.0, Anion Gap 4 L, BUN 44 H, Creatinine 1.38 H, Estim Creat Clear Calc 56.71, Est GFR (MDRD) Af Amer 64, Est GFR (MDRD) Non-Af 53 L, BUN/Creatinine Ratio 31.9 H, Glucose 357 H, Calcium 7.5 L 04/19/23 08:20: POC Glucose 313 H 04/19/23 09:05: Vancomycin Trough 21.3 H Micro: Microbiology 04/17/23 18:00 Blood Culture (Wb) - Anticubital Right Bacteria Detection (PCR) - Final Streptococcus agalactiae (B) 04/17/23 18:00 Blood Culture (Wb) - Anticubital Right Blood Culture - Preliminary Streptococcus agalactiae (B) 04/17/23 18:00 Blood Culture (Wb) - Anticubital Left Blood Culture - Preliminary 04/17/23 18:04 Mucosa - Nose SARS-CoV-2, Influenza & RSV (PCR) - Final Radiography Diagnostic Testing: Radiology Impression Echocardiogram 04/18/23 01:19 Interpretation Summary The estimated ejection fraction is 50-55% %. Low Normal EF Mild Infero basal Hypokinesia ICD/Pacer Lead noted on R.Side No Valvular vegetation Mild MR Moderate TR Ordering Physician: Ethan Townsend Referring Physician: Tomás Patino Performed By: Joana Kwok, EMMA, RVT Chest X-Ray 04/18/23 14:21 IMPRESSION: No acute cardiopulmonary abnormality. No interval change. Electronically Signed: Bob Conrad MD at 14:52 EST , Physical Exam Const alert and no apparent distress Constitutional Narrative: Elderly male, obese, sitting up in bed comfortably, conversing normally, no acute distress. General Appearance: cooperative and comfortable HEENT normocephalic, head/scalp atraumatic, hearing grossly normal bilaterally and nasal mucous membranes and turbinates normal Eyes PERRL, EOMs intact bilaterally and conjunctivae normal Neck no lymphadenopathy and supple Lymph Lymphatic: no lymphadenopathy noted Chest inspection of chest normal Resp normal respiratory effort and no use of accessory muscles Resp Narrative: Mildly decreased breath sounds throughout, likely due to body habitus. No wheezing or crackles noted. Cardio regular rate, regular rhythm, no murmurs and peripheral pulses 2+ throughout GI normal to inspection, nondistended, normoactive bowel sounds, soft to palpation, non-tender and non-distended Back/Spine normal ROM Extremity normal to inspection and no pedal edema Skin no rashes or lesions noted Neuro no focal motor deficits and no sensory deficits noted Speech: speech normal Psych affect normal Assessment & Plan Assessment/Plan (1) Sepsis with encephalopathy without septic shock: (2) Bacteremia due to group B Streptococcus: (3) DONNY (acute kidney injury): (4) Anemia: PLAN: Plan Patient is a 77-year-old male who presented to [facility] ED on 04/17/2023 with fevers and confusion. 1. Sepsis with encephalopathy without shock, improving Presumed secondary to group B strep infection. Met sepsis criteria on admit with fever to 103.2F, WBC count 13.3, sinus tachycardia, hypoxia with tachypnea, encephalopathy, lactate 2.2. Unclear source infection. CT chest abdomen pelvis 04/17 showed no lung abnormalities, mild colonic diverticulosis with no other intra-abdominal abnormalities. No overt skin sores noted. UA noninfectious. S/p 1 L IV fluids in ED, blood pressures has remained stable. ? Plasterer Maintenance following. ID consulted. Started on meropenem, vancomycin and acyclovir on admit per ID recs given unclear source of infection, discontinued meropenem and acyclovir on 04/18. Continue vancomycin, follow-up sensitivities. Monitor closely. 2. Group B Streptococcus bacteremia Blood cultures preliminarily +2/2 for group B strep, sensitivities pending. Unclear source of infection. TTE 04/18 showed EF 50 to 55%, mild inferobasal hypokinesis, mild MR, moderate TR, no valvular vegetations noted. ? ID consulted as above. Continue vancomycin, follow sensitivities. Will defer to infectious disease on whether RAKESH will be needed or not. 3. DONNY Creatinine 1.51, BUN 38 on admit. Baseline creatinine 0.9-1.1. Suspect prerenal etiology in setting of sepsis. CT chest on pelvis 04/17 showed normal urinary bladder, no evidence of hydronephrosis. ? Creatinine 1.38 on 04/19, adequate urine output. Monitor BMP and urine output. Avoid nephrotoxins. 4. Chronic microcytic anemia, history of recent GI bleeds Hemoglobin 10.5 on admit, MCV 67. Baseline hemoglobin 8-10. History of iron deficiency anemia secondary to recent GI bleeds, last saw GI in 01/2023. Noted to have severely bleeding gastric polyps on EGD in 11/19, hemoglobin dropped to 6.1 requiring 2 units packed red blood cells with improvement. Repeat EGD and colonoscopy in 02/19 showed no active source of bleeding. Coumadin for history of DVT was held after hospitalization in October due to GI bleeds. Hemoglobin downtrended to 8.3 on 04/18 after IV fluids. Iron studies consistent with severe iron deficiency anemia. ? Hemoglobin 8.0 on 04/19, stable. No active signs of bleeding. Monitor daily CBC. Discontinued heparin drip on 04/18 as noted below, okay for Lovenox for DVT prophylaxis. Can consider IV iron infusions in outpatient setting, not appropriate to give at this time given patient's bacteremia. 5. Elevated troponins Troponins 92 > 93 > 79 on admit. EKG with no acute changes. Patient initially reported chest pain possibly concerning for cardiac etiology, however pain was quite vague and patient was altered mentation as noted above. Elevated troponins very likely secondary to sepsis as noted above. ? Started on heparin drip on mission, discontinued on 04/18 given low concern for NSTEMI and high risk of GI bleed on full anticoagulation. Okay for Lovenox for DVT prophylaxis. 6. Hypokalemia ? Potassium 3.0 on admit. Replete as needed. 7. COPD with chronic hypoxic respiratory failure on home 2 L History of COPD, intermittently wears 2 L nasal cannula at home. Required BiPAP on admit, suspect due to mental status. Weaned to 2 L nasal cannula by evening of 04/17 with good oxygen saturations. Chest x-ray and CT chest abdomen pelvis with no lung abnormalities. ? Initiated on IV steroids on admission due to concern for acute exacerbation of COPD; discontinued on 04/18 as patient was on home oxygen requirements, no signs of COPD exacerbation. Continue to monitor. Chronic medical conditions: ? Type 2 diabetes mellitus with hyperglycemia: Home regimen of insulin glargine 40 units twice daily, Humalog 24 units 3 times daily, Dapagliflozin 10 mg daily, Trulicity 3 mg weekly. Initially on lower insulin dosing given minimal p.o. intake, but became hypoglycemic with improving intake. Transitioned to Lantus 35 units twice daily, Humalog 18 units 3 times daily AC plus sliding scale insulin, adjust as needed. ? Hypertension: Holding home Coreg, Lasix, isosorbide mononitrate. Restart when able. ? Hyperlipidemia: Continue home statin. ? History of DVT: Coumadin discontinued in 10/2022 given GI bleeds as noted above. ? GERD: Continue home PPI. ? Restless leg syndrome: Continue home ropinirole. ? Glaucoma: Continue home eyedrops. ? JESSICA: Continue home PAP therapy. ? Obesity: BMI 38 on admit, encouraged lifestyle modifications. Complicates hospital course, care and prognosis. ? History of paroxysmal atrial flutter s/p ablation ? History of NSVT ? History of TIA ? Peripheral vascular disease with chronic stasis DVT prophylaxis: Lovenox CODE STATUS: Full code, unverified Expected disposition: TBD Total clinical time spent by myself addressing the patient's medical issues, reviewing all the data, and collaborating with patient's care team: 35 minutes. Charges/Coding Visit Charges Inpatient E&M: 12142 Subs Hosp L2
[2023-04-19 12:33] LABS: Bedside Glucose 345 mg/dL (74-106)
[2023-04-19] MEDS: Pramipexole Di-HCl 0.5 MG Tablet PO (20:32)
[2023-04-19] MEDS: Latanoprost 0.005% 1 Bottle 1 DRP EACH EYE (20:32)
[2023-04-19] MEDS: Nortriptyline 25 MG Capsule PO (20:32)
[2023-04-19] MEDS: Atorvastatin Calcium 80 MG Tablet PO (20:33)
[2023-04-19] MEDS: Vancomycin Trough/Random Due 1 LAB MC (20:55)
[2023-04-19 21:35] LABS: Vancomycin, Random Level 13.7 ug/mL (0.0-15.0)
[2023-04-19] MEDS: Vancomycin IV 1,000 MG/200 ML BAG 200 MG IV (21:56)
--- NOTE | 2023-04-19 22:11 | PCM.RX.CS ---
Consult Antibiotic Management Pharmacy has been consulted to manage selected antibiotic: Vancomycin Type of Intervention Type of Consult: Follow-up Suspected Infection Suspected Infection: Sepsis and Bacteremia Labs Labs: Sodium 139 mmol/L (136-145) 04/19/23 05:35 Potassium 3.6 mmol/L (3.5-5.1) 04/19/23 05:35 Chloride 106 mmol/L (98-107) 04/19/23 05:35 Carbon Dioxide 29.0 mmol/L (21.0-32.0) 04/19/23 05:35 Anion Gap 4 (5-15) L 04/19/23 05:35 BUN 44 mg/dL (7-18) H 04/19/23 05:35 Creatinine 1.38 mg/dL (0.70-1.30) H 04/19/23 05:35 Est GFR (MDRD) Af Amer 64 mL/min (>60) 04/19/23 05:35 Est GFR (MDRD) Non-Af 53 mL/min (>60) L 04/19/23 05:35 BUN/Creatinine Ratio 31.9 RATIO (10-20) H 04/19/23 05:35 Glucose 357 mg/dL (74-106) H 04/19/23 05:35 Vancomycin Trough 21.3 ug/mL (5.0-15.0) H 04/19/23 09:05 Random Vancomycin 13.7 ug/mL (0.0-15.0) 04/19/23 21:00 Microbiology Microbiology: Microbiology 04/17/23 16:32 Urine, Clean Catch Urine Culture - Preliminary Streptococcus agalactiae (B) Presumptive C albicans 04/17/23 18:00 Blood Culture (Wb) - Anticubital Right Bacteria Detection (PCR) - Final Streptococcus agalactiae (B) 04/17/23 18:00 Blood Culture (Wb) - Anticubital Right Blood Culture - Preliminary Streptococcus agalactiae (B) 04/17/23 18:00 Blood Culture (Wb) - Anticubital Left Blood Culture - Preliminary 04/17/23 18:04 Mucosa - Nose SARS-CoV-2, Influenza & RSV (PCR) - Final Dosing Weight Weight used for dosin kg Estimated Creatinine Clearance Estimated Creatinine Clearance: 57 Goal Trough Goal Trough: 15-20 mcg/mL Pharmacy Plan for Drug Dosing Pharmacy Plan for Drug Dosing: Random vancomycin level was 13.7. This was drawn 24 hours after the last dose given. Per aminoglycoside dosing calculator, restarting dosing at 1000mg q12h should give an estimated trough of 19.0. A trough level will be drawn prior to the fourth dose of the new regimen. Pharmacy Service will continue to monitor and adjust dosing as required. Follow-Up Labs Follow-Up Labs: Trough: Vancomycin Date/Time Labs Ordered Labs to be done on [date and time ordered]: 04/21/23 @2240
--- NOTE | 2023-04-20 01:41 | CPS ---
PATIENT SET UP ON OWN PAP MACHINE FOR THE NIGHT.
[2023-04-20 02:00] VITALS: BP 98/69; PULSE 79; RESP 18; TEMP 36.4; O2SAT 99
[2023-04-20] MEDS: Gabapentin 300 MG Capsule 900 MG PO ×3 (05:23→20:52)
[2023-04-20 05:38] LABS: Hematocrit 31.3 % (40-54); Hemoglobin 8.5 g/dL (13.0-16.5); Mean Corp Hgb Conc 27.2 g/dL (32-36); Mean Corpuscular Hgb 18.8 pg (27.0-32.0); Mean Corpuscular Volume 69.4 fL (80-94); Platelet Count 162 K/mm3 (150-450); RBC Distribution Width CV 18.9 % (11.6-14.6); RBC Distribution Width SD 46.4 fl (35.1-43.9); Red Blood Count 4.51 M/mm3 (4.6-6.2); White Blood Count 7.5 K/mm3 (4.4-11.0)
[2023-04-20 05:52] LABS: Anion Gap 6 (5-15); BUN 34 mg/dL (7-18); BUN/Creat Ratio 31.5 RATIO (10-20); Chloride 106 mmol/L (98-107); Creatinine, Serum 1.08 mg/dL (0.70-1.30); EST Glomerular Filtration Rate 70 mL/min (>60); Est Glom Filt Rate - Afr Amer 85 mL/min (>60); Estimated Creatinine Clearance 72.46 ml/min; Glucose 211 mg/dL (74-106); Potassium 3.6 mmol/L (3.5-5.1); Sodium Level 141 mmol/L (136-145)
[2023-04-20 06:00] VITALS: BMI 40.2
--- NOTE | 2023-04-20 06:39 | PN.CC_ITS ---
Assessment & Plan Assessment/Plan (1) Sepsis: QUALIFIERS: Sepsis type: sepsis due to unspecified organism Sepsis acute organ dysfunction status: with acute organ dysfunction Severe sepsis acute organ dysfunction type: encephalopathy Severe sepsis shock status: without septic shock Qualified Code(s): A41.9 - Sepsis, unspecified organism; R65.20 - Severe sepsis without septic shock; G93.41 - Metabolic encephalopathy PLAN: Plan RECOMMENDATIONS: 1. Continue antimicrobials as ordered. 2. Continue nocturnal PAP therapy per home regimen. 3. Supplemental oxygen, if needed, to maintain saturations at or above 90%. 4. Encourage incentive spirometer use and mobilize patient as tolerated. 5. Infectious diseases consultation is pending. IMPRESSIONS: 1. Sepsis The patient presented with sepsis due to gram-positive bacteremia with unclear source with acute sepsis related organ dysfunction as evidenced by lactic acidemia. The patient did receive supplemental IV fluids and remains hemodynamically stable. There is no need for vasopressor support. Recommend c ontinuing antimicrobials per ID recommendations. Surface echocardiogram demonstrated no evidence of valvular vegetations. 2. Anemia The patient was likely hemoconcentrated on presentation. Hemoglobin is stable. Continue PPI therapy. Continue to monitor H&H and transfuse if hemoglobin drops below 7 g/dL. 3. History of obstructive sleep apnea Continue nocturnal PAP therapy per home regimen. 4. History of hypertension/hyperlipidemia/obesity/diabetes mellitus/history of DVT/paroxysmal atrial flutter Complicates care, management, recovery and prognosis. Continue home medications as indicated. Remainder of supportive care as noted above. This note was generated with [employer] dictation software. It may contain incorrect words, spelling, and punctuation that were not noted in checking the note before signing. Subjective Subjective The patient was seen and examined at the bedside this morning. Events from the last 24 hours have been reviewed. The patient is currently afebrile, hemodynamically stable and maintaining appropriate oxygen saturations on his home BiPAP therapy. White count has normalized this morning. Hemoglobin is stable. Creatinine has normalized at 1.08. Objective Data Objective Data The patient's most recent lab work, culture data and imaging studies have all been personally reviewed. Preliminary urine cultures dated April 17 were positive for group B streptococcus. Surface echocardiogram demonstrated a mildly dilated LV with an ejection fraction of 50 to 55%. The left atrium was mildly enlarged. Vital Signs: Vital Signs Temp Pulse Resp BP Pulse Ox O2 Del Method O2 Flow Rate 97.6 F L 79 18 98/69 99 CPAP 2 04/20/23 02:00 04/20/23 02:00 04/20/23 02:00 04/20/23 02:00 04/20/23 02:00 04/20/23 02:00 04/19/23 11:08 FiO2 30 04/19/23 05:00 Oxygen Flow Rate (L/min) 2 Oxygen Delivery Method CPAP Weight: 264 lb 12.403 oz Body Mass Index (BMI) 40.2 Intake & Output: Intake and Output for Last 24 Hours 04/18/23 04/19/23 04/20/23 23:59 23:59 23:59 Intake Total 5445.83 / 5445.83 790 / 790 Output Total 3400 / 3400 2700 / 2700 800 / 800 Balance 2045.83 / 2045.83 -1910 / -1910 -800 / -800 Lab / Micro Data Attestation: I reviewed the patient's lab results. 04/20/23 05:25 04/20/23 05:25 Labs: Laboratory Results - last 24 hr 04/19/23 08:20: POC Glucose 313 H 04/19/23 09:05: Vancomycin Trough 21.3 H 04/19/23 12:12: POC Glucose 345 H 04/19/23 21:00: Random Vancomycin 13.7 04/20/23 05:25: WBC 7.5, RBC 4.51 L, Hgb 8.5 L, Hct 31.3 L, MCV 69.4 L, MCH 18.8 L, MCHC 27.2 L, RDW Std Deviation 46.4 H, RDW Coeff of Galo 18.9 H, Plt Count 162, MPV 9.0, Sodium 141, Potassium 3.6, Chloride 106, Carbon Dioxide 29.0, Anion Gap 6, BUN 34 H, Creatinine 1.08, Estim Creat Clear Calc 72.46, Est GFR (MDRD) Af Amer 85, Est GFR (MDRD) Non-Af 70, BUN/Creatinine Ratio 31.5 H, Glucose 211 H, Calcium 8.0 L Micro: Microbiology 04/17/23 16:32 Urine, Clean Catch Urine Culture - Preliminary Streptococcus agalactiae (B) Presumptive C albicans 04/17/23 18:00 Blood Culture (Wb) - Anticubital Right Bacteria Detection (PCR) - Final Streptococcus agalactiae (B) 04/17/23 18:00 Blood Culture (Wb) - Anticubital Right Blood Culture - Preliminary Streptococcus agalactiae (B) 04/17/23 18:00 Blood Culture (Wb) - Anticubital Left Blood Culture - Preliminary 04/17/23 18:04 Mucosa - Nose SARS-CoV-2, Influenza & RSV (PCR) - Final ABG Data ABG results: ABG 04/18/23 07:22 Specimen Type ART Sample Site L Radial pH 7.40 Bicarbonate Actual 23.5 Total CO2 25 Base Excess -1 O2 Saturation 95 O2 % 30.0 ABG pCO2 38.3 ABG pO2 76 Elijah Test Positive Respiration Rate 12 O2 Delivery Device BiPAP Vent Mode st POC PEEP 15 Clinical Comments Radiography Diagnostic Testing: Radiology Impression Echocardiogram 04/18/23 01:19 Interpretation Summary The estimated ejection fraction is 50-55% %. Low Normal EF Mild Infero basal Hypokinesia ICD/Pacer Lead noted on R.Side No Valvular vegetation Mild MR Moderate TR Ordering Physician: Ethan Townsend Referring Physician: Tomás Patino Performed By: Joana Kwok, EMMA, RVT Chest X-Ray 04/18/23 14:21 IMPRESSION: No acute cardiopulmonary abnormality. No interval change. Electronically Signed: Bob Conrad MD at 14:52 EST , Physical Exam Const alert, oriented x3 and no apparent distress Constitutional Narrative: BiPAP mask in place. General Appearance: cooperative HEENT normocephalic and head/scalp atraumatic Eyes PERRL, EOMs intact bilaterally and conjunctivae normal Neck supple General: trachea midline Chest inspection of chest normal Resp normal respiratory effort Auscultation: Negative for rales, rhonchi or wheezes Cardio regular rate and regular rhythm GI normal to inspection, nondistended, normoactive bowel sounds Extremity no clubbing, cyanosis or edema Skin General Skin Exam: venous stasis and dermatitis Neuro CN's II-XII intact bilaterally and no focal motor deficits Psych cooperative and affect normal Charges/Coding Visit Charges Inpatient E&M: 32715 Subs Hosp L2
--- NOTE | 2023-04-20 07:11 | PN.HOSP_ITS ---
Reason for Visit Reason for Visit: Diagnoses Sepsis, unspecified organism (04/17/23) Streptococcus, group B, as the cause of diseases classified elsewhere (04/17/23) Anemia, unspecified (04/17/23) Acidosis, unspecified (04/17/23) Obstructive sleep apnea (adult) (pediatric) (04/17/23) Metabolic encephalopathy (04/17/23) Chronic obstructive pulmonary disease with (acute) exacerbation (04/17/23) Acute respiratory failure with hypoxia (04/17/23) Acute kidney failure, unspecified (04/17/23) Fever, unspecified (04/17/23) Severe sepsis without septic shock (04/17/23) Bacteremia (04/17/23) Other specified abnormal findings of blood chemistry (04/17/23) Presence of automatic (implantable) cardiac defibrillator (04/17/23) Subjective Subjective Patient is a 77-year-old male who presented to [facility] ED on 04/17/2023 with fevers and confusion. Objective Data Objective Data Vital Signs: Vital Signs Temp Pulse Resp BP Pulse Ox O2 Del Method O2 Flow Rate 97.6 F L 79 18 98/69 99 CPAP 2 04/20/23 02:00 04/20/23 02:00 04/20/23 02:00 04/20/23 02:00 04/20/23 02:00 04/20/23 02:00 04/19/23 11:08 FiO2 30 04/19/23 05:00 Oxygen Flow Rate (L/min) 2 Oxygen Delivery Method CPAP Weight: 120.1 kg Body Mass Index (BMI) 40.2 Intake & Output: Intake and Output for Last 24 Hours 04/18/23 04/19/23 04/20/23 23:59 23:59 23:59 Intake Total 5445.83 / 5445.83 790 / 790 Output Total 3400 / 3400 2700 / 2700 800 / 800 Balance 2045.83 / 2045.83 -1910 / -1910 -800 / -800 Lab / Micro Data 04/20/23 05:25 04/20/23 05:25 Labs: Laboratory Results - last 24 hr 04/19/23 08:20: POC Glucose 313 H 04/19/23 09:05: Vancomycin Trough 21.3 H 04/19/23 12:12: POC Glucose 345 H 04/19/23 21:00: Random Vancomycin 13.7 04/20/23 05:25: WBC 7.5, RBC 4.51 L, Hgb 8.5 L, Hct 31.3 L, MCV 69.4 L, MCH 18.8 L, MCHC 27.2 L, RDW Std Deviation 46.4 H, RDW Coeff of Galo 18.9 H, Plt Count 162, MPV 9.0, Sodium 141, Potassium 3.6, Chloride 106, Carbon Dioxide 29.0, Anion Gap 6, BUN 34 H, Creatinine 1.08, Estim Creat Clear Calc 72.46, Est GFR (MDRD) Af Amer 85, Est GFR (MDRD) Non-Af 70, BUN/Creatinine Ratio 31.5 H, Glucose 211 H, Calcium 8.0 L Micro: Microbiology 04/17/23 16:32 Urine, Clean Catch Urine Culture - Preliminary Streptococcus agalactiae (B) Presumptive C albicans 04/17/23 18:00 Blood Culture (Wb) - Anticubital Right Bacteria Detection (PCR) - Final Streptococcus agalactiae (B) 04/17/23 18:00 Blood Culture (Wb) - Anticubital Right Blood Culture - Preliminary Streptococcus agalactiae (B) 04/17/23 18:00 Blood Culture (Wb) - Anticubital Left Blood Culture - Preliminary 04/17/23 18:04 Mucosa - Nose SARS-CoV-2, Influenza & RSV (PCR) - Final Physical Exam Narrative GENERAL: cooperative HEENT: Atraumatic; normocephalic EYES; Anicteric, Normal Conjunctiva NECK; supple, normal thyroid, RESPIRATORY: Diminished to auscultation CARDIOVASCULAR: Regular S1 S2, GI: soft, normoactive bowel sounds, : No Renal angle tenderness; EXTREMITIES: No edema, no clubbing, MUSCULOSKELETAL: no muscle wasting NEURO: Awake; no lateralizing signs. SKIN: No Rash PSYCH; Flat affect Assessment & Plan Assessment/Plan (1) Sepsis with encephalopathy without septic shock: (2) Bacteremia due to group B Streptococcus: (3) DONNY (acute kidney injury): (4) Anemia: PLAN: Plan Patient is a 77-year-old male who presented to [facility] ED on 04/17/2023 with fevers and confusion. 1. Acute metabolic encephalopathy ? Secondary to sepsis with group B strep infection 2. Sepsis ? Secondary to group B strep infection. Patient blood cultures 2 out of 2 came back positive for group B strep. Underwent TTE which was negative for vegetations. Remains on broad-spectrum antibiotic therapy consult placed to infectious disease 3. Acute kidney injury ? Creatinine on admission was 1.5 rehydrated kidney function as of 04/20/2023 was 1.08 4. Anemia - Secondary to chronic disorder/chronic GI bleed monitoring H&H and transfuse if patient becomes symptomatic or hemoglobin falls below 7 5. Elevated troponin ? Suspected to be secondary to myocardial injury from sepsis 6. Hypokalemia ? Corrected per protocol 7. Chronic hypoxic respiratory failure ? Secondary to COPD patient is on home oxygen 2 L continuous 8. Diabetes mellitus type II -patient's oral hypoglycemics held. Placed on long acting insulin, Accu-Cheks a.c. and at bedtime and covered with sliding scale insulin 9. Essential hypertension ? Patient antihypertensives held, in view of relatively low blood pressure on admission 10. History of DVT ? Patient was previously on Coumadin discontinued given recurrent GI bleed 11. Dyslipidemia -Patient is on statin therapy, continued at home dose 12. Obstructive sleep apnea ? On CPAP therapy at night 13. Class III obesity with BMI of 40.3 ? Complicating care weight loss advised 14. History of paroxysmal A-fib ? Status post ablation 15. GERD ? On PPI 16. Peripheral vascular disease ? History of chronic venous stasis 17. DVT prophylaxis ? SC Lovenox Time spent in the patient's overall evaluation,decision-making process, review of diagnostic data, adjustment of management, discussion with other providers, nursing nursing and ancillary staff involved in patient's care documentation, 50 Minutes Charges/Coding Visit Charges Inpatient E&M: 97799 Subs Hosp L3
[2023-04-20 08:00] VITALS: BP 127/72; PULSE 89; RESP 18; TEMP 35.8; O2SAT 96
[2023-04-20] MEDS: Insulin Lispro 100 UNIT/ML INSULN.PEN SC ×4 (08:00→20:48)
[2023-04-20] MEDS: Insulin Lispro 100 UNIT/ML INSULN.PEN 18 UNIT SC ×3 (08:00→15:26)
[2023-04-20] MEDS: Potassium Chloride Oral Tablet 20 MEQ PO (08:10)
[2023-04-20] MEDS: Isosorbide Mononitrate 60 MG Tablet PO (09:01)
[2023-04-20] MEDS: Enoxaparin 40 MG/0.4 ML Syringe SC (09:01)
[2023-04-20] MEDS: Insulin Glargine-YFGN 100 UNIT/ML Pen 35 UNIT SC ×2 (09:01→20:48)
[2023-04-20] MEDS: Pantoprazole Sodium 40 MG in 0.9% Normal Saline (100mL MB+) 100 ML 330 MG IV (09:05)
[2023-04-20] MEDS: 0.9% Saline Lock 10 ML Syringe IV (09:05)
[2023-04-20] MEDS: Vancomycin IV 1,000 MG/200 ML BAG 200 MG IV ×2 (09:06→20:53)
[2023-04-20 14:00] VITALS: BP 122/63; PULSE 87; RESP 18; TEMP 35.8; O2SAT 97
--- NOTE | 2023-04-20 14:40 | CHAPLAIN ---
Type of Pastoral Visit _x_ Initial Visit ___ Follow-up Visit ___ On-call Visit ___ General Patient Visit ___ Spiritual Assessment ___ Family Conference ___ Bereavement ___ Rapid Response ___ Code Blue ___ Other (describe below) Pastoral Care Referral From _x__ Patient ___ Family ___ Nurse ___ Physician ___ Senior Accountant ___ Recorder Helper [employer] ___ Other (describe below) Sacrament/Intervention _x__ Active listening ___ Anointing ___ Holiness ___ Bereavement ___ Communion ___ Cori exploration ___ ___ Life review _x__ Prayer ___ Reconciliation ___ Sacrament of Sick ___ Supportive presence ___ Wedding ___ Other (describe below) Pastoral Comments patient states that he is doing pretty well now and is encouraged; pt states that his spouse is in the TCU (and this inspector hairspring has visited her); pt handling the situation the 'best that I can, it is the martinez years right as he laughs; pt states he tries to keep an optimistic outlook'; pt accepts the visit and a prayer
--- NOTE | 2023-04-20 14:47 | PCM.CONS.GEN ---
Assessment & Plan Assessment/Plan (1) Sepsis: QUALIFIERS: Sepsis type: sepsis due to unspecified organism Sepsis acute organ dysfunction status: with acute organ dysfunction Severe sepsis acute organ dysfunction type: encephalopathy Severe sepsis shock status: without septic shock Qualified Code(s): A41.9 - Sepsis, unspecified organism; R65.20 - Severe sepsis without septic shock; G93.41 - Metabolic encephalopathy (2) Bacteremia due to group B Streptococcus: PLAN: GBS bacteremia, unclear source. DONNY improved, fever resolved, mental status better. Cont vanc. Will follow, thank you (3) DONNY (acute kidney injury): HPI Consult Data Date of Consult: 04/20/23 HPI Narrative Reason for Consultation: bacteremia HPI Narrative: Tim LONG, is a 77 M with h/o DM, CAD, PPM/AICD, PVD, presented with sudden onset 04/17 of chest pain at rest, associated fever, chills, dyspnea, confusion. Came to ED, now in icu, on vanc. Feeling better, pain and fever resolved. No cough or sputum, no rash, no dysuria. Full ROS performed and neg except as noted above. FOR[facility]LY [facility], LAT[facility] Medical History Anemia Anticoagulant long-term use Arthritis Atherosclerotic heart disease of [place] coronary artery with other forms of angina pectoris Back pain Blood in stool Cardiology follow-up encounter Cellulitis Cellulitis of right leg Chest pain COPD exacerbation Corns and callosities COVID-19 virus infection Dermatitis of lower extremity Diabetes mellitus type 2 in obese Difficulty swallowing DVT (deep venous thrombosis) Dyspnea on exertion Easy bruising Essential (primary) hypertension Excessive bleeding Former smoker 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 Gastric reflux Gastritis GI bleed HFrEF (heart failure with reduced ejection fraction) High cholesterol History of CHF (congestive heart failure) History of deep vein thrombosis (DVT) of lower extremity History of echocardiogram History of edema History of heart attack History of irregular heartbeat History of non-ST elevation myocardial infarction (NSTEMI) (11/05/16) History of renal disease History of steroid therapy History of stress test Hyperlipidemia Insulin dependent diabetes mellitus Ischemic cardiomyopathy Leg cramps Localized edema Melena Morbid obesity with BMI of 40.0-44.9, adult Nondisp fracture of fifth left metatarsal bone with routine healing Nonrheumatic tricuspid (valve) insufficiency Nonsustained ventricular tachycardia Normocytic anemia 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 Other specified peripheral vascular diseases Paroxysmal atrial flutter Peripheral vascular occlusive disease Restless legs Shortness of breath on exertion Syncope TIA (transient ischemic attack) Type 2 diabetes mellitus Ulcer of left lower extremity with fat layer exposed Ulcer of right lower extremity Ulcer of right lower extremity with fat layer exposed Ulcer of right lower extremity with fat layer exposed Uncontrolled type 2 diabetes mellitus Walker as ambulation aid Walking difficulty due to ankle and foot Wears dentures Wears glasses Xerosis cutis Home Medications latanoprost 0.005 % eye drops 1 drp EACH EYE TID glaucoma 11/17/18 [History Last Taken 02/09/23] ropinirole 0.5 mg tablet 1 mg PO QHS legs 12/10/21 [History Last Taken 02/08/23] ondansetron 4 mg disintegrating tablet 4 mg PO Q6H PRN Nausea 03/16/22 [History Last Taken Unknown] albuterol sulfate 2.5 mg/3 mL (0.083 %) solution for nebulization 2.5 mg (3 mL) inhalation Q4H.RT PRN WHEEZING 30 days #360 mL 04/14/22 [Rx Last Taken 02/09/23] albuterol sulfate 90 mcg/actuation aerosol inhaler 2 puff inhalation Q6H PRN shortness of breath or wheezing #8.5 grams 04/16/22 [Rx Last Taken 02/09/23] dapagliflozin propanediol 10 mg tablet (Farxiga) 10 mg PO DAILY diabetes 04/18/22 [History Last Taken 02/09/23] nitroglycerin 0.4 mg sublingual tablet 0.4 mg sublingual Q5M PRN Chest Pain #25 tabs 04/21/22 [Rx Last Taken Unknown] dulaglutide 3 mg/0.5 mL subcutaneous [facility] 3 mg subcut QWEEK diabetes 05/20/22 [History Last Taken 02/08/23] carvedilol 6.25 mg tablet 6.25 mg PO BID This is a dose increase #180 tabs 08/07/22 [Rx Last Taken 01/30/23 03:30] isosorbide mononitrate 60 mg tablet,extended release 24 hr 60 mg PO DAILY #90 tabs 08/07/22 [Rx Last Taken 01/30/23 03:30] insulin lispro 100 unit/mL subcutaneous pen (Humalog KwikPen (U-100) Insulin) 24 unit subcut TID blood sugar 10/30/22 [History Last Taken 02/09/23] insulin glargine-yfgn 100 unit/mL (3 mL) subcutaneous pen 40 unit subcut BID blood sugar 11/04/22 [History Last Taken 02/09/23] potassium chloride 20 mEq tablet,extended release(part/cryst) (Klor-Con M) 20 meq PO DAILY #90 tabs 11/13/22 [Rx Last Taken 02/09/23] nortriptyline 25 mg capsule 25 mg PO DAILY 11/24/22 [History Last Taken 02/09/23] furosemide 80 mg tablet (Lasix) 80 mg PO DAILY 01/21/23 [History Last Taken 02/09/23] gabapentin 300 mg capsule 900 mg PO Q8H 02/09/23 [History Last Taken 02/09/23] pantoprazole 40 mg tablet,delayed release See Rx Instructions .Route .COMPLEX #30 tabs 03/16/23 [Rx Last Taken Unknown] rosuvastatin 40 mg tablet 40 mg PO QHS Cholesterol #90 tabs 03/24/23 [Rx Last Taken Unknown] Allergy/AdvReac Type Severity Reaction Status Date / Time ceftriaxone sodium Allergy Rash Verified 04/08/23 14:17 [From Rocephin] milk AdvReac Diarrhea Verified 04/08/23 14:17 morphine AdvReac hallucinati Verified 04/08/23 14:17 ons Family History Father , Age 78 Prostate cancer Mother , Age 80 CVA (cerebral vascular accident) Sister Congestive heart failure Diabetes Hypertension Hyperlipidemia Atrial fibrillation CAD (coronary artery disease) Cardiac defibrillator in situ Sister Breast cancer Sister Breast cancer Brother CAD (coronary artery disease) Myocardial infarction Diabetes Brother Diabetes Brother , Age 74 COPD (chronic obstructive pulmonary disease) Sister Alive and well Surgical History H/O colonoscopy with polypectomy (11/2017) History of angioplasty of peripheral vessel History of cardiac catheterization History of colonoscopy History of coronary artery stent placement (12/15/14) History of detached retina repair History of electrophysiologic study (11/23/02) History of esophagogastroduodenoscopy (EGD) History of implantable cardiac defibrillator (ICD) (11/19/17) History of implantable cardiac defibrillator (ICD) History of left heart catheterization (12/06/18) History of radiofrequency ablation procedure for cardiac arrhythmia (07/01/11) ICD (implantable cardioverter-defibrillator) in place Social History household members: spouse housing: house current occupational status: retired pets and animals: Yes (2 dogs, 2 cats) Smoking Status: Former smoker pack-years: 20 how long ago did patient quit smokin years ago alcohol intake: never caffeine: Yes Type: coffee Number of servings: 1 Physical Exam Const alert and no apparent distress General Appearance: cooperative HEENT normocephalic and head/scalp atraumatic Eyes PERRL and EOMs intact bilaterally Neck supple and No nodes Resp normal air movement and clear to auscultation bilaterally Cardio regular rate and regular rhythm GI soft to palpation, non-tender and non-distended Extremity General Extremity: edema Skin Skin Narrative: chronic BLE skin changes Neuro CN's II-XII intact bilaterally Lab / Micro Data Attestation: I reviewed the patient's lab results. 04/20/23 05:25 04/20/23 05:25 Labs: Laboratory Results - last 24 hr 04/19/23 21:00: Random Vancomycin 13.7 04/20/23 05:25: WBC 7.5, RBC 4.51 L, Hgb 8.5 L, Hct 31.3 L, MCV 69.4 L, MCH 18.8 L, MCHC 27.2 L, RDW Std Deviation 46.4 H, RDW Coeff of Galo 18.9 H, Plt Count 162, MPV 9.0, Sodium 141, Potassium 3.6, Chloride 106, Carbon Dioxide 29.0, Anion Gap 6, BUN 34 H, Creatinine 1.08, Estim Creat Clear Calc 72.46, Est GFR (MDRD) Af Amer 85, Est GFR (MDRD) Non-Af 70, BUN/Creatinine Ratio 31.5 H, Glucose 211 H, Calcium 8.0 L Micro: Microbiology 04/17/23 16:32 Urine, Clean Catch Urine Culture - Final Streptococcus agalactiae (B) Presumptive C albicans 04/17/23 18:00 Blood Culture (Wb) - Anticubital Right Bacteria Detection (PCR) - Final Streptococcus agalactiae (B) 04/17/23 18:00 Blood Culture (Wb) - Anticubital Right Blood Culture - Final Streptococcus agalactiae (B) Coag Negative Staph 04/17/23 18:00 Blood Culture (Wb) - Anticubital Left Blood Culture - Final Streptococcus group B
[2023-04-20 20:45] VITALS: BP 140/81; PULSE 80; RESP 20; TEMP 36.7; O2SAT 99
[2023-04-20] MEDS: Pramipexole Di-HCl 0.5 MG Tablet PO (20:47)
[2023-04-20] MEDS: Latanoprost 0.005% 1 Bottle 1 DRP EACH EYE (20:47)
[2023-04-20] MEDS: Atorvastatin Calcium 80 MG Tablet PO (20:47)
[2023-04-20] MEDS: Nortriptyline 25 MG Capsule PO (20:48)
[2023-04-20 21:04] LABS: Bedside Glucose 236 mg/dL (74-106)
[2023-04-21 02:55] VITALS: BP 102/54; PULSE 71; RESP 19; TEMP 36.1; O2SAT 100
[2023-04-21 02:58] VITALS: BMI 40.8
[2023-04-21 03:05] LABS: Absolute Lymphocyte Count 1.04 X10^3/uL (0.83-4.51); Absolute Neutrophil Count 4.1 X10^3/uL (2.0-7.7); Basophil# 0.04 X10^3/uL; Basophil% 0.7 % (0-1); Eosinophil# 0.23 X10^3/uL; Eosinophils% 3.8 % (0-5); Hematocrit 29.9 % (40-54); Hemoglobin 8.1 g/dL (13.0-16.5); Lymphocyte # 1.04 X10^3/ul (0.83-4.51); Lymphocyte % 17.3 % (19-41); Mean Corp Hgb Conc 27.1 g/dL (32-36); Mean Corpuscular Hgb 18.4 pg (27.0-32.0); Mean Platelet Vol. 9.3 fl (6.2-12.0); Monocyte% 8.3 % (0-10); NRBC Flagged by Analyzer 0 % (0-5); Neutrophil # 4.13 X10^3/uL (2.7-7.7); Neutrophil % 68.7 % (47-70); Platelet Count 165 K/mm3 (150-450); RBC Distribution Width CV 18.7 % (11.6-14.6); RBC Distribution Width SD 44.9 fl (35.1-43.9)
[2023-04-21 03:19] LABS: Anion Gap 6 (5-15); BUN 20 mg/dL (7-18); BUN/Creat Ratio 21.6 RATIO (10-20); Chloride 106 mmol/L (98-107); Creatinine, Serum 0.92 mg/dL (0.70-1.30); EST Glomerular Filtration Rate 84 mL/min (>60); Est Glom Filt Rate - Afr Amer 102 mL/min (>60); Estimated Creatinine Clearance 85.52 ml/min; Glucose 184 mg/dL (74-106); Magnesium 1.9 mg/dL (1.6-2.6); Phosphorus 2.8 mg/dL (2.5-4.9); Potassium 3.3 mmol/L (3.5-5.1); Sodium Level 139 mmol/L (136-145)
[2023-04-21] MEDS: 0.9% Saline Lock 10 ML Syringe IV ×2 (05:05→21:18)
[2023-04-21] MEDS: Gabapentin 300 MG Capsule 900 MG PO ×3 (05:05→21:16)
--- NOTE | 2023-04-21 07:04 | PCM.PN.INT ---
Assessment & Plan Assessment/Plan (1) Sepsis: QUALIFIERS: Sepsis type: sepsis due to unspecified organism Sepsis acute organ dysfunction status: with acute organ dysfunction Severe sepsis acute organ dysfunction type: encephalopathy Severe sepsis shock status: without septic shock Qualified Code(s): A41.9 - Sepsis, unspecified organism; R65.20 - Severe sepsis without septic shock; G93.41 - Metabolic encephalopathy PLAN: Plan RECOMMENDATIONS: 1. Continue antimicrobials per ID recommendations. 2. Continue nocturnal PAP therapy per home regimen. 3. Supplemental oxygen, if needed, to maintain saturations at or above 90%. 4. Encourage incentive spirometer use and mobilize patient as tolerated. 5. We will sign off from a critical care perspective. Please call with any additional questions. IMPRESSIONS: 1. Sepsis The patient presented with sepsis due to gram-positive bacteremia with unclear source with acute sepsis related organ dysfunction as evidenced by lactic acidemia. The patient did receive supplemental IV fluids and remains hemodynamically stable. There is no need for vasopressor support. Recommend continuing antimicrobials per ID recommendations. Surface echocardiogram demonstrated no evidence of valvular vegetations. Repeat blood cultures are pending. 2. Anemia The patient was likely hemoconcentrated on presentation. Hemoglobin is stable. Continue PPI therapy. Continue to monitor H&H and transfuse if hemoglobin drops below 7 g/dL. 3. History of obstructive sleep apnea Continue nocturnal PAP therapy per home regimen. 4. History of hypertension/hyperlipidemia/obesity/diabetes mellitus/history of DVT/paroxysmal atrial flutter Complicates care, management, recovery and prognosis. Continue home medications as indicated. Remainder of supportive care as noted above. This note was generated with iPower[employer] dictation software. It may contain incorrect words, spelling, and punctuation that were not noted in checking the note before signing. Subjective Subjective The patient was seen and examined at the bedside this morning. Events from the last 24 hours have been reviewed. The patient is currently afebrile, hemodynamically stable and maintaining appropriate oxygen saturations on room air. The patient is documented to be overall net +1.4 L for the hospitalization. Potassium is low this morning at 3.3 with a normal creatinine. Objective Data Objective Data The patient's most recent lab work, culture data and imaging studies have all been personally reviewed. Preliminary urine cultures dated April 17 were positive for group B streptococcus. Surface echocardiogram demonstrated a mildly dilated LV with an ejection fraction of 50 to 55%. The left atrium was mildly enlarged. Vital Signs: Vital Signs Temp Pulse Resp BP Pulse Ox O2 Del Method O2 Flow Rate 97.0 F L 71 19 H 102/54 L 100 Room Air 2 04/21/23 02:55 04/21/23 02:55 04/21/23 02:55 04/21/23 02:55 04/21/23 02:55 04/21/23 02:58 04/19/23 11:08 FiO2 30 04/19/23 05:00 Oxygen Flow Rate (L/min) 2 Oxygen Delivery Method Room Air Weight: 269 lb 6.478 oz Body Mass Index (BMI) 40.8 Intake & Output: Intake and Output for Last 24 Hours 04/19/23 04/20/23 04/21/23 23:59 23:59 23:59 Intake Total 790 / 790 2290 / 2290 Output Total 2700 / 2700 2150 / 2150 700 / 700 Balance -1910 / -1910 140 / 140 -700 / -700 Lab / Micro Data Attestation: I reviewed the patient's lab results. 04/21/23 02:56 04/21/23 02:56 Labs: Laboratory Results - last 24 hr 04/20/23 20:42: POC Glucose 236 H 04/21/23 02:56: WBC 6.0, RBC 4.40 L, Hgb 8.1 L, Hct 29.9 L, MCV 68.0 L, MCH 18.4 L, MCHC 27.1 L, RDW Std Deviation 44.9 H, RDW Coeff of Galo 18.7 H, Plt Count 165, MPV 9.3, Immature Gran % (Auto) 1.200 H, Neut % (Auto) 68.7, Lymph % (Auto) 17.3 L, Dickson % (Auto) 8.3, Eos % (Auto) 3.8, Baso % (Auto) 0.7, Absolute Neuts (auto) 4.1, Absolute Lymphs (auto) 1.04, Nucleated RBC % 0, Sodium 139, Potassium 3.3 L, Chloride 106, Carbon Dioxide 27.0, Anion Gap 6, BUN 20 H, Creatinine 0.92, Estim Creat Clear Calc 85.52, Est GFR (MDRD) Af Amer 102, Est GFR (MDRD) Non-Af 84, BUN/Creatinine Ratio 21.6 H, Glucose 184 H, Calcium 8.0 L, Phosphorus 2.8, Magnesium 1.9 Micro: Microbiology 04/17/23 16:32 Urine, Clean Catch Urine Culture - Final Streptococcus agalactiae (B) Presumptive C albicans 04/17/23 18:00 Blood Culture (Wb) - Anticubital Right Bacteria Detection (PCR) - Final Streptococcus agalactiae (B) 04/17/23 18:00 Blood Culture (Wb) - Anticubital Right Blood Culture - Final Streptococcus agalactiae (B) Coag Negative Staph 04/17/23 18:00 Blood Culture (Wb) - Anticubital Left Blood Culture - Final Streptococcus group B 04/17/23 18:04 Mucosa - Nose SARS-CoV-2, Influenza & RSV (PCR) - Final ABG Data ABG results: ABG 04/18/23 07:22 Specimen Type ART Sample Site L Radial pH 7.40 Bicarbonate Actual 23.5 Total CO2 25 Base Excess -1 O2 Saturation 95 O2 % 30.0 ABG pCO2 38.3 ABG pO2 76 Elijah Test Positive Respiration Rate 12 O2 Delivery Device BiPAP Vent Mode st POC PEEP 15 Clinical Comments Radiography Diagnostic Testing: Radiology Impression Echocardiogram 04/18/23 01:19 Interpretation Summary The estimated ejection fraction is 50-55% %. Low Normal EF Mild Infero basal Hypokinesia ICD/Pacer Lead noted on R.Side No Valvular vegetation Mild MR Moderate TR Ordering Physician: Ethan Townsend Referring Physician: Tomás Patino Performed By: Joana Kwok, EMMA, RVT Chest X-Ray 04/18/23 14:21 IMPRESSION: No acute cardiopulmonary abnormality. No interval change. Electronically Signed: Bob Conrad MD at 14:52 EST , Physical Exam Const alert, oriented x3 and no apparent distress General Appearance: cooperative HEENT normocephalic and head/scalp atraumatic Eyes PERRL, EOMs intact bilaterally and conjunctivae normal Neck supple General: trachea midline Chest inspection of chest normal Resp normal respiratory effort Auscultation: Negative for rales, rhonchi or wheezes Cardio regular rate and regular rhythm GI normal to inspection, nondistended, normoactive bowel sounds Extremity no clubbing, cyanosis or edema Skin General Skin Exam: venous stasis and dermatitis Neuro CN's II-XII intact bilaterally and no focal motor deficits Psych cooperative and affect normal Charges/Coding Visit Charges Inpatient E&M: 90710 Subs Hosp L2
--- NOTE | 2023-04-21 07:33 | PCM.PN.HOSP ---
Reason for Visit Reason for Visit: Diagnoses Sepsis, unspecified organism (04/17/23) Streptococcus, group B, as the cause of diseases classified elsewhere (04/17/23) Anemia, unspecified (04/17/23) Acidosis, unspecified (04/17/23) Obstructive sleep apnea (adult) (pediatric) (04/17/23) Metabolic encephalopathy (04/17/23) Chronic obstructive pulmonary disease with (acute) exacerbation (04/17/23) Acute respiratory failure with hypoxia (04/17/23) Acute kidney failure, unspecified (04/17/23) Fever, unspecified (04/17/23) Severe sepsis without septic shock (04/17/23) Bacteremia (04/17/23) Other specified abnormal findings of blood chemistry (04/17/23) Presence of automatic (implantable) cardiac defibrillator (04/17/23) Subjective Subjective Patient seen improving clinically. Repeat blood cultures were sent the day prior. Objective Data Objective Data Vital Signs: Vital Signs Temp Pulse Resp BP Pulse Ox O2 Del Method O2 Flow Rate 97.0 F L 71 19 H 102/54 L 100 Room Air 2 04/21/23 02:55 04/21/23 02:55 04/21/23 02:55 04/21/23 02:55 04/21/23 02:55 04/21/23 02:58 04/19/23 11:08 FiO2 30 04/19/23 05:00 Oxygen Flow Rate (L/min) 2 Oxygen Delivery Method Room Air Weight: 122.2 kg Body Mass Index (BMI) 40.8 Intake & Output: Intake and Output for Last 24 Hours 04/19/23 04/20/23 04/21/23 23:59 23:59 23:59 Intake Total 790 / 790 2290 / 2290 Output Total 2700 / 2700 2150 / 2150 700 / 700 Balance -1910 / -1910 140 / 140 -700 / -700 Lab / Micro Data 04/21/23 02:56 04/21/23 02:56 Labs: Laboratory Results - last 24 hr 04/20/23 20:42: POC Glucose 236 H 04/21/23 02:56: WBC 6.0, RBC 4.40 L, Hgb 8.1 L, Hct 29.9 L, MCV 68.0 L, MCH 18.4 L, MCHC 27.1 L, RDW Std Deviation 44.9 H, RDW Coeff of Galo 18.7 H, Plt Count 165, MPV 9.3, Immature Gran % (Auto) 1.200 H, Neut % (Auto) 68.7, Lymph % (Auto) 17.3 L, Boyle % (Auto) 8.3, Eos % (Auto) 3.8, Baso % (Auto) 0.7, Absolute Neuts (auto) 4.1, Absolute Lymphs (auto) 1.04, Nucleated RBC % 0, Sodium 139, Potassium 3.3 L, Chloride 106, Carbon Dioxide 27.0, Anion Gap 6, BUN 20 H, Creatinine 0.92, Estim Creat Clear Calc 85.52, Est GFR (MDRD) Af Amer 102, Est GFR (MDRD) Non-Af 84, BUN/Creatinine Ratio 21.6 H, Glucose 184 H, Calcium 8.0 L, Phosphorus 2.8, Magnesium 1.9 Micro: Microbiology 04/17/23 16:32 Urine, Clean Catch Urine Culture - Final Streptococcus agalactiae (B) Presumptive C albicans 04/17/23 18:00 Blood Culture (Wb) - Anticubital Right Bacteria Detection (PCR) - Final Streptococcus agalactiae (B) 04/17/23 18:00 Blood Culture (Wb) - Anticubital Right Blood Culture - Final Streptococcus agalactiae (B) Coag Negative Staph 04/17/23 18:00 Blood Culture (Wb) - Anticubital Left Blood Culture - Final Streptococcus group B 04/17/23 18:04 Mucosa - Nose SARS-CoV-2, Influenza & RSV (PCR) - Final Physical Exam Narrative GENERAL: cooperative HEENT: Atraumatic; normocephalic EYES; Anicteric, Normal Conjunctiva NECK; supple, normal thyroid, RESPIRATORY: Diminished to auscultation CARDIOVASCULAR: Regular S1 S2, GI: soft, normoactive bowel sounds, : No Renal angle tenderness; EXTREMITIES: No edema, no clubbing, MUSCULOSKELETAL: no muscle wasting NEURO: Awake; no lateralizing signs. SKIN: No Rash PSYCH; Flat affect Assessment & Plan Assessment/Plan (1) Sepsis with encephalopathy without septic shock: (2) Bacteremia due to group B Streptococcus: (3) DONNY (acute kidney injury): (4) Anemia: PLAN: Plan Patient is a 77-year-old male who presented to [facility] ED on 04/17/2023 with fevers and confusion. 1. Acute metabolic encephalopathy ? Secondary to sepsis with group B strep infection 2. Sepsis ? Secondary to group B strep infection. Patient blood cultures 2 out of 2 came back positive for group B strep. Underwent TTE which was negative for vegetations. Remains on broad-spectrum antibiotic therapy consult placed to infectious disease ? 04/21/2023. Repeat blood cultures sent the day prior. Patient continues to improve clinically 3. Acute kidney injury ? Creatinine on admission was 1.5 rehydrated kidney function as of 04/20/2023 was 1.08 4. Anemia - Secondary to chronic disorder/chronic GI bleed monitoring H&H and transfuse if patient becomes symptomatic or hemoglobin falls below 7 5. Elevated troponin ? Suspected to be secondary to myocardial injury from sepsis 6. Hypokalemia ? Corrected per protocol 7. Chronic hypoxic respiratory failure ? Secondary to COPD patient is on home oxygen 2 L continuous 8. Diabetes mellitus type II -patient's oral hypoglycemics held. Placed on long acting insulin, Accu-Cheks a.c. and at bedtime and covered with sliding scale insulin 9. Essential hypertension ? Patient antihypertensives held, in view of relatively low blood pressure on admission 10. History of DVT ? Patient was previously on Coumadin discontinued given recurrent GI bleed 11. Dyslipidemia -Patient is on statin therapy, continued at home dose 12. Obstructive sleep apnea ? On CPAP therapy at night 13. Class III obesity with BMI of 40.3 ? Complicating care weight loss advised 14. History of paroxysmal A-fib ? Status post ablation 15. GERD ? On PPI 16. Peripheral vascular disease ? History of chronic venous stasis 17. DVT prophylaxis ? SC Lovenox Time spent in the patient's overall evaluation,decision-making process, review of diagnostic data, adjustment of management, discussion with other providers, nursing nursing and ancillary staff involved in patient's care documentation, 35 Minutes Charges/Coding Visit Charges Inpatient E&M: 84918 Subs Hosp L2
[2023-04-21] MEDS: Insulin Lispro 100 UNIT/ML INSULN.PEN SC ×3 (07:57→15:50)
[2023-04-21] MEDS: Potassium Chloride Oral Tablet 20 MEQ PO (07:58)
[2023-04-21] MEDS: Insulin Lispro 100 UNIT/ML INSULN.PEN 18 UNIT SC ×3 (07:58→15:47)
[2023-04-21 08:55] VITALS: BP 114/70; PULSE 80; RESP 20; TEMP 35.7; O2SAT 100
[2023-04-21 09:46] VITALS: O2SAT 99
--- NOTE | 2023-04-21 10:30 | PCM.PN.ID ---
Physical Exam Narrative Feeling better, no fever, mild soft stool. Moving out of icu. Const alert and no apparent distress Resp normal air movement and clear to auscultation bilaterally Cardio regular rate and regular rhythm GI soft to palpation, non-tender and non-distended Skin no rashes or lesions noted ID ID: Route of nutrition/ use of supplements: [] Nutritional Intake: [] IV Site: [] Guaman Catheter: [] Assessment & Plan Assessment/Plan (1) Sepsis: QUALIFIERS: Sepsis type: sepsis due to unspecified organism Sepsis acute organ dysfunction status: with acute organ dysfunction Severe sepsis acute organ dysfunction type: encephalopathy Severe sepsis shock status: without septic shock Qualified Code(s): A41.9 - Sepsis, unspecified organism; R65.20 - Severe sepsis without septic shock; G93.41 - Metabolic encephalopathy (2) Bacteremia due to group B Streptococcus: PLAN: GBS bacteremia, unclear source. DONNY improved, fever resolved, mental status better. Cont vanc. With ICD in place, will check RAKESH. Will follow (3) DONNY (acute kidney injury):
[2023-04-21] MEDS: Isosorbide Mononitrate 60 MG Tablet PO (11:26)
[2023-04-21] MEDS: Insulin Glargine-YFGN 100 UNIT/ML Pen 35 UNIT SC (11:27)
[2023-04-21] MEDS: Enoxaparin 40 MG/0.4 ML Syringe SC (11:28)
[2023-04-21] MEDS: Pantoprazole Sodium 40 MG in 0.9% Normal Saline (100mL MB+) 100 ML 330 MG IV (11:28)
--- NOTE | 2023-04-21 11:43 | ECHOTEE_ITS ---
Version 2 Reason For Study: Bacteremia Medication RAKESH probe 6VT-D (SN [id number]) passed without difficulty. No complications were noted. Cetacaine Topical Amistad given X3 orally. Versed 1 mg given slow IVP. Fentanyl 50 mcg given slow IVP. Left Ventricle Normal LV size. Left ventricular systolic function is normal. The estimated ejection fraction is 60 %. No regional wall motion abnormalities noted. Right Ventricle Normal right ventricle. ICD or pacer leads identified within the right ventricle. Normal systolic function. Atria Bubble contrast study negative for right to left interatrial shunt. The left atrium is mildly enlarged. No thrombus is detected in the left atrial appendage. Normal right atrium. ICD or pacer leads identified within the right atrium. Mitral Valve Bileaflet diffuse mitral valve thickening. Mild (1+) mitral valve insufficiency. Tricuspid Valve Normal tricuspid valve. Aortic Valve Normal aortic valve. Trisinus/trileaflet aortic valve. Pulmonic Valve Normal pulmonic valve. Vessels Normal aortic root. Pericardium No pericardial effusion. ECHO/Echo Transesophageal (RAKESH) Interpretation Summary Normal LV size. Left ventricular systolic function is normal. The estimated ejection fraction is 60 %. Bubble contrast study negative for right to left interatrial shunt. ICD or pacer leads identified within the right ventricle. No vegetation or thrombus is noted No thrombus is detected in the left atrial appendage. Ordering Physician: Henok Monge Referring Physician: MD Sukumar Tomás Performed By: Dalila Barbosa RDCS
[2023-04-21 12:33] LABS: Vancomycin, Trough Level 10.4 ug/mL (5.0-15.0)
[2023-04-21] MEDS: Vancomycin HCl 1,250 MG in 0.9% Normal Saline (250mL Bag) 250 ML 167 MG IV (13:08)
--- NOTE | 2023-04-21 13:24 | PHA.PHARE_ITS ---
Consult Antibiotic Management Pharmacy has been consulted to manage selected antibiotic: Vancomycin Type of Intervention Type of Consult: Follow-up Suspected Infection Suspected Infection: Sepsis and Bacteremia Prior Doses of Antibiotics Prior Doses of Antibiotics Received/Current Regimen: current dose is vanc 1000mg IV q12h Labs Labs: Sodium 139 mmol/L (136-145) 04/21/23 02:56 Potassium 3.3 mmol/L (3.5-5.1) L 04/21/23 02:56 Chloride 106 mmol/L (98-107) 04/21/23 02:56 Carbon Dioxide 27.0 mmol/L (21.0-32.0) 04/21/23 02:56 Anion Gap 6 (5-15) 04/21/23 02:56 BUN 20 mg/dL (7-18) H 04/21/23 02:56 Creatinine 0.92 mg/dL (0.70-1.30) 04/21/23 02:56 Est GFR (MDRD) Af Amer 102 mL/min (>60) 04/21/23 02:56 Est GFR (MDRD) Non-Af 84 mL/min (>60) 04/21/23 02:56 BUN/Creatinine Ratio 21.6 RATIO (10-20) H 04/21/23 02:56 Glucose 184 mg/dL (74-106) H 04/21/23 02:56 Vancomycin Trough 10.4 ug/mL (5.0-15.0) 04/21/23 11:22 Random Vancomycin 13.7 ug/mL (0.0-15.0) 04/19/23 21:00 Microbiology Microbiology: Microbiology 04/17/23 16:32 Urine, Clean Catch Urine Culture - Final Streptococcus agalactiae (B) Presumptive C albicans 04/17/23 18:00 Blood Culture (Wb) - Anticubital Right Bacteria Detection (PC R) - Final Streptococcus agalactiae (B) 04/17/23 18:00 Blood Culture (Wb) - Anticubital Right Blood Culture - Final Streptococcus agalactiae (B) Coag Negative Staph 04/17/23 18:00 Blood Culture (Wb) - Anticubital Left Blood Culture - Final Streptococcus group B 04/17/23 18:04 Mucosa - Nose SARS-CoV-2, Influenza & RSV (PCR) - Final Dosing Weight Weight used for dosin.2 kg Estimated Creatinine Clearance Estimated Creatinine Clearance: 85.5ml/min Goal Trough Goal Trough: 15-20 mcg/mL Pharmacy Plan for Drug Dosing Pharmacy Plan for Drug Dosing: The vanc trough drawn at 11:22 today (approx 14 hours after the previous dose) was 10.4. This would have been a little higher if drawn closer to the 12 hour ashlyn but still not within goal range of 15-20. Noting that the patient's SCr has improved to 0.92 and CrCl to 85.5 today, will slightly increase dose back to 1250mg IV q12h to try to up the trough to goal range. Repeat a trough before the 4th new dose. Pharmacy Service will continue to monitor and adjust dosing as required. Follow-Up Labs Follow-Up Labs: Trough: Vancomycin Date/Time Labs Ordered Labs to be done on [date and time ordered]: 04/23/23 00:30
[2023-04-21 14:55] VITALS: BP 116/76; PULSE 78; RESP 18; TEMP 35.9; O2SAT 97
--- NOTE | 2023-04-21 17:55 | NURSING ---
04/21/23@1755- REPORT CALLED TO GALILEA BULLOCK RN ON [facility].
[2023-04-21] MEDS: Acetaminophen 325 MG Tablet 650 MG PO (19:53)
[2023-04-21 20:00] VITALS: BP 138/76; PULSE 94; RESP 16; TEMP 36.6; O2SAT 98
--- NOTE | 2023-04-21 20:23 | CPS ---
Patient brought in own PAP machine, and set up for the night. On RA.
[2023-04-21] MEDS: Atorvastatin Calcium 80 MG Tablet PO (21:16)
[2023-04-21] MEDS: Pramipexole Di-HCl 0.5 MG Tablet PO (21:16)
[2023-04-21] MEDS: Latanoprost 0.005% 1 Bottle 1 DRP EACH EYE (21:17)
[2023-04-21] MEDS: Nortriptyline 25 MG Capsule PO (21:17)
[2023-04-21] MEDS: 0.9% Normal Saline (250mL Bag) 250 ML 15 ML IV (21:18)
--- NOTE | 2023-04-21 21:54 | PCM.HOSP.N ---
Hospitalist Note BS 124, has 35 u long acting pending but has NPO status shortly. Will hold and continue to monitor BS.
[2023-04-21 23:32] LABS: Bedside Glucose 124 mg/dL (74-106)
[2023-04-22] VITALS (8 sets, daily range): BP systolic 117–142; BP diastolic 64–85; PULSE 83–98; RESP 16–24; TEMP 36.6–36.9; O2SAT 94–99; BMI 40.8
[2023-04-22] MEDS: Vancomycin HCl 1,250 MG in 0.9% Normal Saline (250mL Bag) 250 ML 167 MG IV ×2 (00:47→13:48)
[2023-04-22 06:54] LABS: Absolute Lymphocyte Count 0.76 X10^3/uL (0.83-4.51); Basophil# 0.04 X10^3/uL; Basophil% 0.6 % (0-1); Eosinophil# 0.23 X10^3/uL; Eosinophils% 3.4 % (0-5); Hematocrit 29.4 % (40-54); Hemoglobin 8.1 g/dL (13.0-16.5); Lymphocyte # 0.76 X10^3/ul (0.83-4.51); Lymphocyte % 11.3 % (19-41); Mean Corp Hgb Conc 27.6 g/dL (32-36); Mean Corpuscular Hgb 18.7 pg (27.0-32.0); Mean Corpuscular Volume 67.7 fL (80-94); Mean Platelet Vol. 9.3 fl (6.2-12.0); Monocyte% 8.9 % (0-10); NRBC Flagged by Analyzer 0 % (0-5); Neutrophil # 5.02 X10^3/uL (2.7-7.7); Neutrophil % 74.9 % (47-70); Platelet Count 151 K/mm3 (150-450); RBC Distribution Width CV 18.6 % (11.6-14.6); Red Blood Count 4.34 M/mm3 (4.6-6.2); White Blood Count 6.7 K/mm3 (4.4-11.0)
[2023-04-22 06:54] LABS: Bedside Glucose 189 mg/dL (74-106)
[2023-04-22 07:07] LABS: Anion Gap 1 (5-15); BUN 15 mg/dL (7-18); BUN/Creat Ratio 18.1 RATIO (10-20); Calcium,Total 8.4 mg/dL (8.5-10.1); Chloride 110 mmol/L (98-107); Creatinine, Serum 0.83 mg/dL (0.70-1.30); EST Glomerular Filtration Rate 96 mL/min (>60); Est Glom Filt Rate - Afr Amer 116 mL/min (>60); Estimated Creatinine Clearance 94.75 ml/min; Glucose 193 mg/dL (74-106); Potassium 3.7 mmol/L (3.5-5.1); Sodium Level 138 mmol/L (136-145)
--- NOTE | 2023-04-22 07:17 | NURSING ---
Patient off unit for RAKESH at this time.
--- NOTE | 2023-04-22 07:34 | PCM.PN.HOSP ---
Reason for Visit Reason for Visit: Diagnoses Sepsis, unspecified organism (04/17/23) Streptococcus, group B, as the cause of diseases classified elsewhere (04/17/23) Anemia, unspecified (04/17/23) Acidosis, unspecified (04/17/23) Obstructive sleep apnea (adult) (pediatric) (04/17/23) Metabolic encephalopathy (04/17/23) Chronic obstructive pulmonary disease with (acute) exacerbation (04/17/23) Acute respiratory failure with hypoxia (04/17/23) Acute kidney failure, unspecified (04/17/23) Fever, unspecified (04/17/23) Severe sepsis without septic shock (04/17/23) Bacteremia (04/17/23) Other specified abnormal findings of blood chemistry (04/17/23) Presence of automatic (implantable) cardiac defibrillator (04/17/23) Subjective Subjective Patient seen, had a relatively uneventful night. Was seen by Dr. Moneg yesterday who recommended for patient to undergo RAKESH given the presence of his AICD Objective Data Objective Data Vital Signs: Vital Signs Temp Pulse Resp BP Pulse Ox O2 Del Method O2 Flow Rate 97.8 F 83 16 117/69 97 CPAP 2 04/22/23 02:25 04/22/23 02:25 04/22/23 02:25 04/22/23 02:25 04/22/23 02:25 04/22/23 02:25 04/19/23 11:08 FiO2 30 04/19/23 05:00 Oxygen Flow Rate (L/min) 2 Oxygen Delivery Method CPAP Weight: 122.1 kg Body Mass Index (BMI) 40.8 Intake & Output: Intake and Output for Last 24 Hours 04/20/23 04/21/23 04/22/23 23:59 23:59 23:59 Intake Total 2290 / 2290 1785 / 1785 275 / 275 Output Total 2150 / 2150 700 / 1100 900 / 900 Balance 140 / 140 1085 / 685 -625 / -625 Lab / Micro Data 04/22/23 05:50 04/22/23 05:50 Labs: Laboratory Results - last 24 hr 04/21/23 11:22: Vancomycin Trough 10.4 04/21/23 21:12: POC Glucose 124 H 04/22/23 05:50: WBC 6.7, RBC 4.34 L, Hgb 8.1 L, Hct 29.4 L, MCV 67.7 L, MCH 18.7 L, MCHC 27.6 L, RDW Std Deviation 44.0 H, RDW Coeff of Galo 18.6 H, Plt Count 151, MPV 9.3, Immature Gran % (Auto) 0.900, Neut % (Auto) 74.9 H, Lymph % (Auto) 11.3 L, Sutton % (Auto) 8.9, Eos % (Auto) 3.4, Baso % (Auto) 0.6, Absolute Neuts (auto) 5.0, Absolute Lymphs (auto) 0.76 L, Nucleated RBC % 0, Sodium 138, Potassium 3.7, Chloride 110 H, Carbon Dioxide 27.0, Anion Gap 1 L, BUN 15, Creatinine 0.83, Estim Creat Clear Calc 94.75, Est GFR (MDRD) Af Amer 116, Est GFR (MDRD) Non-Af 96, BUN/Creatinine Ratio 18.1, Glucose 193 H, Calcium 8.4 L 04/22/23 06:35: POC Glucose 189 H Micro: Microbiology 04/17/23 16:32 Urine, Clean Catch Urine Culture - Final Streptococcus agalactiae (B) Presumptive C albicans 04/17/23 18:00 Blood Culture (Wb) - Anticubital Right Bacteria Detection (PCR) - Final Streptococcus agalactiae (B) 04/17/23 18:00 Blood Culture (Wb) - Anticubital Right Blood Culture - Final Streptococcus agalactiae (B) Coag Negative Staph 04/17/23 18:00 Blood Culture (Wb) - Anticubital Left Blood Culture - Final Streptococcus group B 04/17/23 18:04 Mucosa - Nose SARS-CoV-2, Influenza & RSV (PCR) - Final Physical Exam Narrative GENERAL: cooperative HEENT: Atraumatic; normocephalic EYES; Anicteric, Normal Conjunctiva NECK; supple, normal thyroid, RESPIRATORY: Diminished to auscultation CARDIOVASCULAR: Regular S1 S2, GI: soft, normoactive bowel sounds, : No Renal angle tenderness; EXTREMITIES: No edema, no clubbing, MUSCULOSKELETAL: no muscle wasting NEURO: Awake; no lateralizing signs. SKIN: No Rash PSYCH; Flat affect Assessment & Plan Assessment/Plan (1) Sepsis with encephalopathy without septic shock: (2) Bacteremia due to group B Streptococcus: (3) DONYN (acute kidney injury): (4) Anemia: PLAN: Plan Patient is a 77-year-old male who presented to [facility] ED on 04/17/2023 with fevers and confusion. 1. Acute metabolic encephalopathy ? Secondary to sepsis with group B strep infection 2. Sepsis ? Secondary to group B strep infection. Patient blood cultures 2 out of 2 came back positive for group B strep. Underwent TTE which was negative for vegetations. Remains on broad-spectrum antibiotic therapy consult placed to infectious disease ? 04/21/2023. Repeat blood cultures sent the day prior. Patient continues to improve clinically ? 04/22/2023 ID recommended for patient to undergo RAKESH given the presence of his AICD 3. Acute kidney injury ? Creatinine on admission was 1.5 rehydrated kidney function as of 04/20/2023 was 1.08 4. Anemia - Secondary to chronic disorder/chronic GI bleed monitoring H&H and transfuse if patient becomes symptomatic or hemoglobin falls below 7 5. Elevated troponin ? Suspected to be secondary to myocardial injury from sepsis 6. Hypokalemia ? Corrected per protocol 7. Chronic hypoxic respiratory failure ? Secondary to COPD patient is on home oxygen 2 L continuous 8. Diabetes mellitus type II -patient's oral hypoglycemics held. Placed on long acting insulin, Accu-Cheks a.c. and at bedtime and covered with sliding scale insulin 9. Essential hypertension ? Patient antihypertensives held, in view of relatively low blood pressure on admission 10. History of DVT ? Patient was previously on Coumadin discontinued given recurrent GI bleed 11. Dyslipidemia -Patient is on statin therapy, continued at home dose 12. Obstructive sleep apnea ? On CPAP therapy at night 13. Class III obesity with BMI of 40.3 ? Complicating care weight loss advised 14. History of paroxysmal A-fib ? Status post ablation 15. GERD ? On PPI 16. Peripheral vascular disease ? History of chronic venous stasis 17. DVT prophylaxis ? SC Lovenox Time spent in the patient's overall evaluation,decision-making process, review of diagnostic data, adjustment of management, discussion with other providers, nursing nursing and ancillary staff involved in patient's care documentation, 35 Minutes Charges/Coding Visit Charges Inpatient E&M: 87110 Subs Hosp L2
--- NOTE | 2023-04-22 09:26 | VDLE_ITS ---
Reason For Study: Left leg pain RIGHT LEFT CFV is compressible, spontaneous, phasic, GSV is normal. competent and demonstrates normal CFV is compressible, spontaneous, phasic, augmentation. competent, and demonstrates normal Procedure augmentation. This is a venous duplex using B-mode, color FV is compressible, spontaneous, phasic, flow and spectral Doppler. competent and demonstrates normal Exam performed in department. augmentation. A preliminary report was called and/or faxed POP V is compressible, spontaneous, phasic, to MS3. competent and demonstrates normal augmentation. T/P Trunk is compressible. PTV is compressible. LT PerV is compressible. VL/Venous Duplex US, Unilateral Interpretation Summary Deep veins of the left lower extremity are patent and compressible segmentally. There is no evidence of left lower extremity deep vein thrombosis. The left great saphenous vein pili ears patent and compressible segmentally. Ordering Physician: Ethan Christian Referring Physician: MD Sukumar Tomás Performed By: Autumn Garcia RVT
[2023-04-22] MEDS: Pantoprazole Sodium 40 MG in 0.9% Normal Saline (100mL MB+) 100 ML 330 MG IV (10:34)
[2023-04-22] MEDS: Insulin Glargine-YFGN 100 UNIT/ML Pen 35 UNIT SC ×2 (10:34→21:21)
[2023-04-22] MEDS: Potassium Chloride Oral Tablet 20 MEQ PO (10:34)
[2023-04-22] MEDS: Enoxaparin 40 MG/0.4 ML Syringe SC (10:34)
[2023-04-22] MEDS: Isosorbide Mononitrate 60 MG Tablet PO (10:34)
[2023-04-22 10:50] LABS: Bedside Glucose 172 mg/dL (74-106)
[2023-04-22] MEDS: Insulin Lispro 100 UNIT/ML INSULN.PEN 18 UNIT SC ×2 (12:04→17:19)
[2023-04-22] MEDS: Insulin Lispro 100 UNIT/ML INSULN.PEN SC ×3 (12:05→21:21)
[2023-04-22] MEDS: Acetaminophen 325 MG Tablet 650 MG PO ×2 (12:49→20:16)
[2023-04-22] MEDS: Gabapentin 300 MG Capsule 900 MG PO ×2 (13:48→21:20)
--- NOTE | 2023-04-22 14:53 | NURSING ---
reviewed student charting
--- NOTE | 2023-04-22 14:55 | CASEMGMT ---
Addendum entered by Gretel Holt 04/22/23 16:11: [facility] accepts and states SOC is Thursday. Addendum entered by Gretel Holt 04/22/23 15:13: TC made to [facility] and referral started. Original Note: NURSING SERVICE ADMINISTRATOR recently finished seeing the pt. The NURSING SERVICE ADMINISTRATOR states that the pt could benefit from additional therapy. DIANA CM to pt room at this time. Pt states that at DC he would like to go home. Pt states that he feels safe and comfortable at home alone. Pt has a FFSU with a ramp to enter the home. Pt states that he would prefer HHC over SNF or outpt therapy. Pt denied seeing a list of in-network HHC agencies and pt states that he would want HHC with [facility]. Will follow. Pt in room and plans to DC from TCU next week. Pt might need home O2 and states that his receives her home O2 needs through [facility] and the pt said that he would like to use [facility] for potential home O2 needs. We are waiting to hear from ID to see if the pt will need IV ATB at home. Will follow.
[2023-04-22] MEDS: oxyCODONE 5 MG Tablet PO ×2 (15:22→20:17)
--- NOTE | 2023-04-22 15:36 | CASEMGMT ---
Social Work SW met with pt to discuss advance directives. Pt has a living will on file but no HCPOA. Pt stating he does not have this document at home and would like to complete it at this time. SW assisted pt in completing a HCPOA and pt named his Ila Devi. Copy placed on pt chart and orginal given to pt. AMADOR Barrios
[2023-04-22 17:02] LABS: Bedside Glucose 198 mg/dL (74-106)
[2023-04-22] MEDS: Atorvastatin Calcium 80 MG Tablet PO (21:20)
[2023-04-22] MEDS: Nortriptyline 25 MG Capsule PO (21:20)
[2023-04-22] MEDS: Pramipexole Di-HCl 0.5 MG Tablet PO (21:20)
[2023-04-22] MEDS: Latanoprost 0.005% 1 Bottle 1 DRP EACH EYE (21:21)
[2023-04-22] MEDS: 0.9% Saline Lock 10 ML Syringe IV (21:32)
[2023-04-22] MEDS: Albuterol 2.5 MG/3 ML VIAL.NEB. INHALATION (21:51)
[2023-04-22 22:18] LABS: Bedside Glucose 269 mg/dL (74-106)
--- NOTE | 2023-04-22 22:54 | CPS ---
[2151] Pt. exhibiting audible wheezes at this time. While listening to pt. posteriorly, I noticed clear/diminished breath sounds.
[2023-04-23 00:53] LABS: Vancomycin, Trough Level 14.7 ug/mL (5.0-15.0)
[2023-04-23] MEDS: Vancomycin HCl 1,250 MG in 0.9% Normal Saline (250mL Bag) 250 ML 167 MG IV (01:43)
[2023-04-23] MEDS: 0.9% Saline Lock 10 ML Syringe IV (01:44)
[2023-04-23] MEDS: Vancomycin Trough/Random Due 1 LAB MC (01:50)
[2023-04-23 02:06] VITALS: BP 120/75; PULSE 90; RESP 16; TEMP 36.7; O2SAT 97
--- NOTE | 2023-04-23 02:59 | PCM.RX.CS ---
Consult Antibiotic Management Pharmacy has been consulted to manage selected antibiotic: Vancomycin Type of Intervention Type of Consult: Follow-up Labs Labs: Sodium 138 mmol/L (136-145) 04/22/23 05:50 Potassium 3.7 mmol/L (3.5-5.1) 04/22/23 05:50 Chloride 110 mmol/L (98-107) H 04/22/23 05:50 Carbon Dioxide 27.0 mmol/L (21.0-32.0) 04/22/23 05:50 Anion Gap 1 (5-15) L 04/22/23 05:50 BUN 15 mg/dL (7-18) 04/22/23 05:50 Creatinine 0.83 mg/dL (0.70-1.30) 04/22/23 05:50 Est GFR (MDRD) Af Amer 116 mL/min (>60) 04/22/23 05:50 Est GFR (MDRD) Non-Af 96 mL/min (>60) 04/22/23 05:50 BUN/Creatinine Ratio 18.1 RATIO (10-20) 04/22/23 05:50 Glucose 193 mg/dL (74-106) H 04/22/23 05:50 Vancomycin Trough 14.7 ug/mL (5.0-15.0) 04/23/23 00:13 Random Vancomycin 13.7 ug/mL (0.0-15.0) 04/19/23 21:00 Microbiology Microbiology: Microbiology 04/17/23 16:32 Urine, Clean Catch Urine Culture - Final Streptococcus agalactiae (B) Presumptive C albicans 04/17/23 18:00 Blood Culture (Wb) - Anticubital Right Bacteria Detection (PCR) - Final Streptococcus agalactiae (B) 04/17/23 18:00 Blood Culture (Wb) - Anticubital Right Blood Culture - Final Streptococcus agalactiae (B) Coag Negative Staph 04/17/23 18:00 Blood Culture (Wb) - Anticubital Left Blood Culture - Final Streptococcus group B 04/17/23 18:04 Mucosa - Nose SARS-CoV-2, Influenza & RSV (PCR) - Final Pharmacy Plan for Drug Dosing Pharmacy Plan for Drug Dosing: Pharmacy Service will continue to monitor and adjust dosing as required. TROUGH 14.7 @ 11 HRS. NO CHANGES, DRAW TROUGH IN 2 DAYS Follow-Up Labs Follow-Up Labs: Trough: Vancomycin Date/Time Labs Ordered Labs to be done on [date and time ordered]: 04/25 @ 0038
[2023-04-23 05:55] VITALS: BMI 23.1
[2023-04-23] MEDS: Gabapentin 300 MG Capsule 900 MG PO ×2 (06:22→16:17)
[2023-04-23 07:12] LABS: Bedside Glucose 222 mg/dL (74-106)
[2023-04-23 07:33] LABS: Absolute Lymphocyte Count 0.73 X10^3/uL (0.83-4.51); Absolute Neutrophil Count 5.6 X10^3/uL (2.0-7.7); Basophil# 0.03 X10^3/uL; Basophil% 0.4 % (0-1); Eosinophil# 0.27 X10^3/uL; Eosinophils% 3.7 % (0-5); Hematocrit 30.3 % (40-54); Hemoglobin 8.2 g/dL (13.0-16.5); Lymphocyte # 0.73 X10^3/ul (0.83-4.51); Mean Corp Hgb Conc 27.1 g/dL (32-36); Mean Corpuscular Hgb 18.7 pg (27.0-32.0); Mean Corpuscular Volume 69.2 fL (80-94); Mean Platelet Vol. 9.2 fl (6.2-12.0); Monocyte# 0.63 X10^3/uL; Monocyte% 8.6 % (0-10); NRBC Flagged by Analyzer 0 % (0-5); Neutrophil # 5.59 X10^3/uL (2.7-7.7); Neutrophil % 76.5 % (47-70); Platelet Count 134 K/mm3 (150-450); RBC Distribution Width CV 19.4 % (11.6-14.6); RBC Distribution Width SD 45.6 fl (35.1-43.9); Red Blood Count 4.38 M/mm3 (4.6-6.2); White Blood Count 7.3 K/mm3 (4.4-11.0)
--- NOTE | 2023-04-23 07:45 | PCM.PN.HOSP ---
Reason for Visit Reason for Visit: Diagnoses Sepsis, unspecified organism (04/17/23) Streptococcus, group B, as the cause of diseases classified elsewhere (04/17/23) Anemia, unspecified (04/17/23) Acidosis, unspecified (04/17/23) Obstructive sleep apnea (adult) (pediatric) (04/17/23) Metabolic encephalopathy (04/17/23) Chronic obstructive pulmonary disease with (acute) exacerbation (04/17/23) Acute respiratory failure with hypoxia (04/17/23) Acute kidney failure, unspecified (04/17/23) Fever, unspecified (04/17/23) Severe sepsis without septic shock (04/17/23) Bacteremia (04/17/23) Other specified abnormal findings of blood chemistry (04/17/23) Presence of automatic (implantable) cardiac defibrillator (04/17/23) Subjective Subjective Venous duplex obtained the day prior did not show any DVT. Patient was placed on pain medications with some relief. Plan is for patient to be assessed for possible discharge Objective Data Objective Data Vital Signs: Vital Signs Temp Pulse Resp BP Pulse Ox O2 Del Method O2 Flow Rate 98.1 F 90 16 120/75 97 CPAP 2 04/23/23 02:06 04/23/23 02:06 04/23/23 02:06 04/23/23 02:06 04/23/23 02:06 04/23/23 02:06 04/19/23 11:08 FiO2 30 04/19/23 05:00 Oxygen Flow Rate (L/min) 2 Oxygen Delivery Method CPAP Weight: 69.2 kg Body Mass Index (BMI) 23.1 Intake & Output: Intake and Output for Last 24 Hours 04/21/23 04/22/23 04/23/23 23:59 23:59 23:59 Intake Total 1785 / 1785 1660 / 1660 275 / 275 Output Total 700 / 1100 900 / 1150 675 / 675 Balance 1085 / 685 760 / 510 -400 / -400 Lab / Micro Data 04/23/23 07:02 04/23/23 07:02 Labs: Laboratory Results - last 24 hr 04/22/23 10:28: POC Glucose 172 H 04/22/23 16:44: POC Glucose 198 H 04/22/23 21:19: POC Glucose 269 H 04/23/23 00:13: Vancomycin Trough 14.7 01/25/24 06:20: POC Glucose 222 H 04/23/23 07:02: WBC 7.3, RBC 4.38 L, Hgb 8.2 L, Hct 30.3 L, MCV 69.2 L, MCH 18.7 L, MCHC 27.1 L, RDW Std Deviation 45.6 H, RDW Coeff of Galo 19.4 H, Plt Count 134 L, MPV 9.2, Immature Gran % (Auto) 0.800, Neut % (Auto) 76.5 H, Lymph % (Auto) 10.0 L, [place] % (Auto) 8.6, Eos % (Auto) 3.7, Baso % (Auto) 0.4, Absolute Neuts (auto) 5.6, Absolute Lymphs (auto) 0.73 L, Nucleated RBC % 0 Micro: Microbiology 04/17/23 16:32 Urine, Clean Catch Urine Culture - Final Streptococcus agalactiae (B) Presumptive C albicans 04/17/23 18:00 Blood Culture (Wb) - Anticubital Right Bacteria Detection (PCR) - Final Streptococcus agalactiae (B) 04/17/23 18:00 Blood Culture (Wb) - Anticubital Right Blood Culture - Final Streptococcus agalactiae (B) Coag Negative Staph 04/17/23 18:00 Blood Culture (Wb) - Anticubital Left Blood Culture - Final Streptococcus group B 04/17/23 18:04 Mucosa - Nose SARS-CoV-2, Influenza & RSV (PCR) - Final Radiography Diagnostic Testing: Radiology Impression Transesophageal Echocardiogram 04/21/23 11:43 Interpretation Summary Normal LV size. Left ventricular systolic function is normal. The estimated ejection fraction is 60 %. Bubble contrast study negative for right to left interatrial shunt. ICD or pacer leads identified within the right ventricle. No vegetation or thrombus is noted No thrombus is detected in the left atrial appendage. Ordering Physician: Henok Monge Referring Physician: MD Tomás Patino Performed By: Dalila Barbosa, [facility] Venous Doppler Study 04/22/23 09:26 Interpretation Summary Deep veins of the left lower extremity are patent and compressible segmentally. There is no evidence of left lower extremity deep vein thrombosis. The left great saphenous vein appears patent and compressible segmentally. Ordering Physician: Ethan Christian Referring Physician: MD Tomás Patino Performed By: Autumn Garcia, RVT Physical Exam Narrative GENERAL: cooperative HEENT: Atraumatic; normocephalic EYES; Anicteric, Normal Conjunctiva NECK; supple, normal thyroid, RESPIRATORY: Diminished to auscultation CARDIOVASCULAR: Regular S1 S2, GI: soft, normoactive bowel sounds, : No Renal angle tenderness; EXTREMITIES: No edema, no clubbing, MUSCULOSKELETAL: no muscle wasting NEURO: Awake; no lateralizing signs. SKIN: No Rash PSYCH; Flat affect Assessment & Plan Assessment/Plan (1) Sepsis with encephalopathy without septic shock: (2) Bacteremia due to group B Streptococcus: (3) DONNY (acute kidney injury): (4) Anemia: PLAN: Plan Patient is a 77-year-old male who presented to [facility] ED on 04/17/2023 with fevers and confusion. 1. Acute metabolic encephalopathy ? Secondary to sepsis with group B strep infection 2. Sepsis ? Secondary to group B strep infection. Patient blood cultures 2 out of 2 came back positive for group B strep. Underwent TTE which was negative for vegetations. Remains on broad-spectrum antibiotic therapy consult placed to infectious disease ? 04/21/2023. Repeat blood cultures sent the day prior. Patient continues to improve clinically ? 04/22/2023 ID recommended for patient to undergo RAKESH given the presence of his AICD ? 04/23/2023; underwent RAKESH the day prior was negative for vegetations 3. Acute kidney injury ? Creatinine on admission was 1.5 rehydrated kidney function as of 04/20/2023 was 1.08 4. Anemia - Secondary to chronic disorder/chronic GI bleed monitoring H&H and transfuse if patient becomes symptomatic or hemoglobin falls below 7 5. Elevated troponin ? Suspected to be secondary to myocardial injury from sepsis 6. Hypokalemia ? Corrected per protocol 7. Chronic hypoxic respiratory failure ? Secondary to COPD patient is on home oxygen 2 L continuous 8. Diabetes mellitus type II -patient's oral hypoglycemics held. Placed on long acting insulin, Accu-Cheks a.c. and at bedtime and covered with sliding scale insulin 9. Essential hypertension ? Patient antihypertensives held, in view of relatively low blood pressure on admission 10. History of DVT ? Patient was previously on Coumadin discontinued given recurrent GI bleed ? Patient did complain of significant left calf pain. Venous duplex was negative for DVT 11. Dyslipidemia -Patient is on statin therapy, continued at home dose 12. Obstructive sleep apnea ? On CPAP therapy at night 13. Class III obesity with BMI of 40.3 ? Complicating care weight loss advised 14. History of paroxysmal A-fib ? Status post ablation 15. GERD ? On PPI 16. Peripheral vascular disease ? History of chronic venous stasis 17. DVT prophylaxis ? [place] Lovenox Time spent in the patient's overall evaluation,decision-making process, review of diagnostic data, adjustment of management, discussion with other providers, nursing nursing and ancillary staff involved in patient's care documentation, 35 Minutes Charges/Coding Visit Charges Inpatient E&M: 91504 Subs Hosp L2
[2023-04-23 08:05] LABS: Anion Gap 3 (5-15); BUN 14 mg/dL (7-18); BUN/Creat Ratio 15.6 RATIO (10-20); Calcium,Total 8.3 mg/dL (8.5-10.1); Chloride 109 mmol/L (98-107); EST Glomerular Filtration Rate 87 mL/min (>60); Est Glom Filt Rate - Afr Amer 105 mL/min (>60); Glucose 244 mg/dL (74-106); Potassium 3.7 mmol/L (3.5-5.1); Sodium Level 136 mmol/L (136-145)
[2023-04-23 09:06] VITALS: BP 126/57; PULSE 78; RESP 18; TEMP 36.8; O2SAT 99
[2023-04-23] MEDS: Pantoprazole Sodium 40 MG in 0.9% Normal Saline (100mL MB+) 100 ML 330 MG IV (09:11)
[2023-04-23] MEDS: Insulin Lispro 100 UNIT/ML INSULN.PEN 18 UNIT SC ×3 (09:11→16:20)
[2023-04-23] MEDS: Insulin Lispro 100 UNIT/ML INSULN.PEN SC ×3 (09:11→16:20)
[2023-04-23] MEDS: Potassium Chloride Oral Tablet 20 MEQ PO (09:13)
[2023-04-23] MEDS: Isosorbide Mononitrate 60 MG Tablet PO (09:13)
[2023-04-23] MEDS: Enoxaparin 40 MG/0.4 ML Syringe SC (09:13)
--- NOTE | 2023-04-23 10:13 | PCM.PN.ID ---
Physical Exam Narrative Feeling better, but having some L calf pain and swelling for past 1-2 days. No fever. Const alert and no apparent distress General Appearance: cooperative Resp normal air movement and clear to auscultation bilaterally Cardio regular rate and regular rhythm Extremity General Extremity: edema Skin Skin Narrative: L lower leg redness, mild soreness, swelling ID ID: Route of nutrition/ use of supplements: [] Nutritional Intake: [] IV Site: [] [place] Catheter: [] Assessment & Plan Assessment/Plan (1) Sepsis: QUALIFIERS: Sepsis type: sepsis due to unspecified organism Sepsis acute organ dysfunction status: with acute organ dysfunction Severe sepsis acute organ dysfunction type: encephalopathy Severe sepsis shock status: without septic shock Qualified Code(s): A41.9 - Sepsis, unspecified organism; R65.20 - Severe sepsis without septic shock; G93.41 - Metabolic encephalopathy (2) Bacteremia due to group B Streptococcus: PLAN: GBS bacteremia, unclear source. DONNY improved, fever resolved, mental status better. On vanc. With ICD in place, did RAKESH which showed no veg. Thinks he has taken amox with no issues in the past. Will change to 1 week of augmentin. New L lower leg cellulitis, doppler neg. Will cover with augmentin. Will follow (3) DONNY (acute kidney injury):
--- NOTE | 2023-04-23 10:28 | PCM.DC.SUM ---
Providers Date of Admission: 04/17/23 Date of Discharge: 04/23/23 Primary Care Physician: Dr. Tomás Patino MD Consultations 04/17/23 21:41 Consult: [place] / Pulmonary Medicine Routine Consulting Provider: Intensivists/Pulmonary Med Reason for Consult: Sepsis of unknown primary origin EMERGENT Consult: No Notified: Yes Date Notified: 04/17/23 Time Notified: 21:41 Method of Notification: Text 04/18/23 01:17 Consult: Cardiology Routine Consulting Provider: [facility] Reason for Consult: Elevated troponin and chest pain with known CAD and sepsis of unkown source EMERGENT Consult: No Notified: Yes Date Notified: 04/18/23 Time Notified: 01:17 Method of Notification: Text Method of Consult:: In-Person 04/18/23 06:36 Consult: Infectious Disease Routine Consulting Provider: Henok Monge Reason for Consult: Sepsis of unknown origin with GPC ob blood cx EMERGENT Consult: No Notified: Yes Date Notified: 04/18/23 Time Notified: 06:36 Method of Notification: Text Reason For Visit: SEPSIS OF UNKNOWN ORIGIN Diagnosis Discharge Diagnosis (1) Sepsis: Status: Acute Code(s): A41.9 - Sepsis, unspecified organism Qualifiers: Sepsis type: sepsis due to unspecified organism Sepsis acute organ dysfunction status: with acute organ dysfunction Severe sepsis acute organ dysfunction type: encephalopathy Severe sepsis shock status: without septic shock Qualified Code(s): A41.9 - Sepsis, unspecified organism; R65.20 - Severe sepsis without septic shock; G93.41 - Metabolic encephalopathy (2) Bacteremia due to group B Streptococcus: Status: Acute Code(s): R78.81 - Bacteremia; B95.1 - Streptococcus, group B, as the cause of diseases classified elsewhere (3) DONNY (acute kidney injury): Status: Acute Code(s): N17.9 - Acute kidney failure, unspecified Plan Patient is a 77-year-old male who presented to [facility] ED on 04/17/2023 with fevers and confusion. 1. Acute metabolic encephalopathy ? Secondary to sepsis with group B strep infection 2. Sepsis secondary to cellulitis with group B strep infection ? Secondary to group B strep infection. Patient blood cultures 2 out of 2 came back positive for group B strep. Underwent TTE which was negative for vegetations. Remains on broad-spectrum antibiotic therapy consult placed to infectious disease ? 04/21/2023. Repeat blood cultures sent the day prior. Patient continues to improve clinically ? 04/22/2023 ID recommended for patient to undergo RAKESH given the presence of his AICD ? 04/23/2023; underwent RAKESH the day prior was negative for vegetations. Patient was discharged home on Augmentin per recommendations from ID for wound 3. Acute kidney injury ? Creatinine on admission was 1.5 rehydrated kidney function as of 04/20/2023 was 1.08 4. Anemia - Secondary to chronic disorder/chronic GI bleed monitoring H&H and transfuse if patient becomes symptomatic or hemoglobin falls below 7 5. Elevated troponin ? Suspected to be secondary to myocardial injury from sepsis 6. Hypokalemia ? Corrected per protocol 7. Chronic hypoxic respiratory failure ? Secondary to COPD patient is on home oxygen 2 L continuous 8. Diabetes mellitus type II -patient's oral hypoglycemics held. Placed on long acting insulin, Accu-Cheks a.c. and at bedtime and covered with sliding scale insulin 9. Essential hypertension ? Patient antihypertensives held, in view of relatively low blood pressure on admission 10. History of DVT ? Patient was previously on Coumadin discontinued given recurrent GI bleed ? Patient did complain of significant left calf pain. Venous duplex was negative for DVT 11. Dyslipidemia -Patient is on statin therapy, continued at home dose 12. Obstructive sleep apnea ? On CPAP therapy at night 13. Class III obesity with BMI of 40.3 ? Complicating care weight loss advised 14. History of paroxysmal A-fib ? Status post ablation 15. GERD ? On PPI 16. Peripheral vascular disease ? History of chronic venous stasis 17. DVT prophylaxis ? [facility] Time spent in the patient's overall evaluation,decision-making process, review of diagnostic data, adjustment of management, discussion with other providers, nursing nursing and ancillary staff involved in patient's care documentation, 35 Minutes Medications at Discharge Home Medications latanoprost 0.005 % eye drops 1 drp EACH EYE TID glaucoma 11/17/18 ropinirole 0.5 mg tablet 1 mg PO QHS legs 12/10/21 ondansetron 4 mg disintegrating tablet 4 mg PO Q6H PRN Nausea 03/16/22 albuterol sulfate 2.5 mg/3 mL (0.083 %) solution for nebulization 2.5 mg (3 mL) inhalation Q4H.RT PRN WHEEZING 30 days #360 mL 04/14/22 albuterol sulfate 90 mcg/actuation aerosol inhaler 2 puff inhalation Q6H PRN shortness of breath or wheezing #8.5 grams 04/16/22 dapagliflozin propanediol 10 mg tablet (Farxiga) 10 mg PO DAILY diabetes 04/18/22 nitroglycerin 0.4 mg sublingual tablet 0.4 mg sublingual Q5M PRN Chest Pain #25 tabs 04/21/22 dulaglutide 3 mg/0.5 mL subcutaneous pen injector (Trulicity) 3 mg subcut QWEEK diabetes 05/20/22 carvedilol 6.25 mg tablet 6.25 mg PO BID This is a dose increase #180 tabs 08/07/22 isosorbide mononitrate 60 mg tablet,extended release 24 hr 60 mg PO DAILY #90 tabs 08/07/22 insulin lispro 100 unit/mL subcutaneous pen (Humalog KwikPen (U-100) Insulin) 24 unit subcut TID blood sugar 10/30/22 insulin glargine-yfgn 100 unit/mL (3 mL) subcutaneous pen 40 unit subcut BID blood sugar 11/04/22 potassium chloride 20 mEq tablet,extended release(part/cryst) (Klor-Con M) 20 meq PO DAILY #90 tabs 11/13/22 nortriptyline 25 mg capsule 25 mg PO DAILY 11/24/22 furosemide 80 mg tablet (Lasix) 80 mg PO DAILY 01/21/23 gabapentin 300 mg capsule 900 mg PO Q8H 02/09/23 pantoprazole 40 mg tablet,delayed release See Rx Instructions .Route .COMPLEX #30 tabs 03/16/23 rosuvastatin 40 mg tablet 40 mg PO QHS Cholesterol #90 tabs 03/24/23 amoxicillin 875 mg-potassium clavulanate 125 mg tablet 1 tab PO BID 7 days #14 tabs 04/23/23 oxycodone 5 mg tablet 5 mg PO Q4H PRN PRN Pain Score 6-10 5 days #16 tabs 04/23/23 Physical Exam Narrative GENERAL: cooperative HEENT: Atraumatic; normocephalic EYES; Anicteric, Normal Conjunctiva NECK; supple, normal thyroid, RESPIRATORY: Diminished to auscultation CARDIOVASCULAR: Regular S1 S2, GI: soft, normoactive bowel sounds, : No Renal angle tenderness; EXTREMITIES: No edema, no clubbing, MUSCULOSKELETAL: no muscle wasting NEURO: Awake; no lateralizing signs. SKIN: No Rash PSYCH; Flat affect Weight / BMI Weight Weight: 69.2 kg Body Mass Index (BMI) 23.1 ABG / Lab / Microbiology Data 04/23/23 07:02 04/23/23 07:02 Laboratory: Laboratory Results - last 24 hr 04/22/23 10:28: POC Glucose 172 H 04/22/23 16:44: POC Glucose 198 H 04/22/23 21:19: POC Glucose 269 H 04/23/23 00:13: Vancomycin Trough 14.7 04/23/23 06:20: POC Glucose 222 H 04/23/23 07:02: WBC 7.3, RBC 4.38 L, Hgb 8.2 L, Hct 30.3 L, MCV 69.2 L, MCH 18.7 L, MCHC 27.1 L, RDW Std Deviation 45.6 H, RDW Coeff of Galo 19.4 H, Plt Count 134 L, MPV 9.2, Immature Gran % (Auto) 0.800, Neut % (Auto) 76.5 H, Lymph % (Auto) 10.0 L, [place] % (Auto) 8.6, Eos % (Auto) 3.7, Baso % (Auto) 0.4, Absolute Neuts (auto) 5.6, Absolute Lymphs (auto) 0.73 L, Nucleated RBC % 0, Sodium 136, Potassium 3.7, Chloride 109 H, Carbon Dioxide 24.0, Anion Gap 3 L, BUN 14, Creatinine 0.90, Estim Creat Clear Calc 66.50, Est GFR (MDRD) Af Amer 105, Est GFR (MDRD) Non-Af 87, BUN/Creatinine Ratio 15.6, Glucose 244 H, Calcium 8.3 L Microbiology: Microbiology 04/17/23 16:32 Urine, Clean Catch Urine Culture - Final Streptococcus agalactiae (B) Presumptive C albicans 04/17/23 18:00 Blood Culture (Wb) - Anticubital Right Bacteria Detection (PCR) - Final Streptococcus agalactiae (B) 04/17/23 18:00 Blood Culture (Wb) - Anticubital Right Blood Culture - Final Streptococcus agalactiae (B) Coag Negative Staph 04/17/23 18:00 Blood Culture (Wb) - Anticubital Left Blood Culture - Final Streptococcus group B 04/17/23 18:04 Mucosa - Nose SARS-CoV-2, Influenza & RSV (PCR) - Final Radiography Diagnostic Testing: Radiology Impression Transesophageal Echocardiogram 04/21/23 11:43 Interpretation Summary Normal LV size. Left ventricular systolic function is normal. The estimated ejection fraction is 60 %. Bubble contrast study negative for right to left interatrial shunt. ICD or pacer leads identified within the right ventricle. No vegetation or thrombus is noted No thrombus is detected in the left atrial appendage. Ordering Physician: Henok Monge Referring Physician: MD Tomás Patino Performed By: Dalila Barbosa, EMMA Venous Doppler Study 04/22/23 09:26 Interpretation Summary Deep veins of the left lower extremity are patent and compressible segmentally. There is no evidence of left lower extremity deep vein thrombosis. The left great saphenous vein appears patent and compressible segmentally. Ordering Physician: Ethan Christian Referring Physician: MD Tomás Patino Performed By: Autumn Garcia T D/C Instructions Discharge Diet: 1800 Calorie Control Diet Discharge Activity: Return to Normal Activity Call your doctor if you observe: Fever of 101 or Higher, Shortness of breath, Fainting spells and Chest pain Meaningful Use Info Meaningful Use Diagnoses (Choose all that apply): None applicable Discharge Plan Admission Admit Date/Time: 04/17/23 21:35 Attending Provider: Ethan Christian Primary Care Provider: Tomás Patino Consulting Providers: Ethan Wright; Nathan Ramirez; Kristy Castro; Lashay Treviño; Seema Vazquez; Heath Cason; Milagro Montez; Johan Perry; Jerson Estrada; Wesley Wasserman; Carissa Brownlee; Federico Mora; Doyle Jones; Valorie Orr; Yordan Palma; Jorge Brady; Da Weston; Charlie Swann; Oliverio Lang; Francis Kwok [employer]; Kristy Art [employer]; Melany Khanna PA; Henok Monge Discharge Orders/Prescriptions Prescriptions: New amoxicillin-pot clavulanate 875-125 mg Tablet 1 tab PO BID 7 Days Qty: 14 0RF oxycodone 5 mg Tablet 5 mg PO Q4H PRN PRN (Reason: Pain Score 6-10) 5 Days Qty: 16 0RF Continued dapagliflozin propanediol [Farxiga] 10 mg tablet 10 mg PO DAILY furosemide [Lasix] 80 mg tablet 80 mg PO DAILY insulin lispro [Humalog KwikPen Insulin] 100 unit/mL insulin pen 24 unit subcut TID nortriptyline 25 mg capsule 25 mg PO DAILY latanoprost 2.5 ML drops 1 drp EACH EYE TID ropinirole 0.5 mg tablet 1 mg PO QHS ondansetron 4 mg Tablet,Disintegrating 4 mg PO Q6H PRN (Reason: Nausea) albuterol sulfate 2.5 mg /3 mL (0.083 %) Solution For Nebulization 2.5 mg inhalation Q4H.RT PRN (Reason: WHEEZING) 30 Days Qty: 360 0RF albuterol sulfate 90 mcg/actuation HFA aerosol inhaler 2 puff inhalation Q6H PRN (Reason: shortness of breath or wheezing) Qty: 8.5 0RF Trulicity 3 mg/0.5 mL Pen Injector 3 mg SUBCUT QWEEK insulin glargine-yfgn 100 unit/mL (3 mL) Insulin Pen 40 unit subcut BID gabapentin 300 mg capsule 900 mg PO Q8H nitroglycerin 0.4 mg tablet, sublingual 0.4 mg SL Q5M PRN (Reason: Chest Pain) Qty: 25 3RF carvedilol 6.25 mg tablet 6.25 mg PO BID Qty: 180 3RF Rx Instructions: must administer with a meal/food isosorbide mononitrate 60 mg tablet extended release 24 hr 60 mg PO DAILY Qty: 90 3RF potassium chloride [Klor-Con M20] 20 mEq tablet,ER particles/crystals 20 meq PO DAILY Qty: 90 3RF pantoprazole 40 mg tablet,delayed release (DR/EC) See Rx Instructions .ROUTE .COMPLEX Qty: 30 2RF Dose Instruction: TAKE ONE TABLET BY MOUTH EVERY DAY (bills 12/12) Rx Instructions: TAKE ONE TABLET BY MOUTH EVERY DAY (bills 12/12) rosuvastatin 40 mg tablet 40 mg PO QHS Qty: 90 3RF Referrals / Follow Up: Tomás Patino MD [Primary Care Provider] - Within 2 Weeks Disposition Disposition (needs filled in before D/C Order can be placed): Home, Self Care Charges/Coding Visit Charges Inpatient E&M: 43297 Disch Hosp >30min
[2023-04-23] MEDS: Insulin Glargine-YFGN 100 UNIT/ML Pen 35 UNIT SC (10:39)
--- NOTE | 2023-04-23 10:55 | CASEMGMT ---
Pt states that he still feels safe being DC home today. Pt updated that [facility] will start care tomorrow and pt is agreeable to this. Denies further needs.
[2023-04-23] MEDS: Amox/Clavulanate 875 MG Tablet PO (11:54)
[2023-04-23 12:13] LABS: Bedside Glucose 251 mg/dL (74-106)
[2023-04-23 15:32] VITALS: BP 121/67; PULSE 89; RESP 18; TEMP 36.6; O2SAT 100
[2023-04-23 16:39] LABS: Bedside Glucose 211 mg/dL (74-106)
== END 2023-04-23 18:20 | disposition home or self-care (01) | DRG 871 ==
LOC: ED 21:23 → ICU 21:42 → MS3 04-21 18:27
PROVIDERS: Hospitalist; Internal Medicine Infectious Disease; Admitting Provider Internal Medicine; Emergency Provider Emergency Medicine; PCP Family Medicine; Visit Provider Internal Medicine
DX: A40.1 Sepsis due to streptococcus, group B (principal); G93.41 Metabolic encephalopathy; E87.20 Acidosis, unspecified; I5A Non-ischemic myocardial injury (non-traumatic); J44.1 Chronic obstructive pulmonary disease with (acute) exacerbation; Z68.41 Body mass index [BMI] 40.0-44.9, adult; N17.9 Acute kidney failure, unspecified; I50.22 Chronic systolic (congestive) heart failure; J96.11 Chronic respiratory failure with hypoxia; E87.3 Alkalosis; R78.81 Bacteremia; R65.20 Severe sepsis without septic shock; E11.649 Type 2 diabetes mellitus with hypoglycemia without coma; E11.39 Type 2 diabetes mellitus with other diabetic ophthalmic complication; D50.0 Iron deficiency anemia secondary to blood loss (chronic); I11.0 Hypertensive heart disease with heart failure; E11.65 Type 2 diabetes mellitus with hyperglycemia; E66.01 Morbid (severe) obesity due to excess calories; Z79.4 Long term (current) use of insulin; E11.51 Type 2 diabetes mellitus with diabetic peripheral angiopathy without gangrene; G25.81 Restless legs syndrome; I08.1 Rheumatic disorders of both mitral and tricuspid valves; F32.A Depression, unspecified; E78.5 Hyperlipidemia, unspecified; E87.6 Hypokalemia; I25.10 Atherosclerotic heart disease of native coronary artery without angina pectoris; I25.5 Ischemic cardiomyopathy; K21.9 Gastro-esophageal reflux disease without esophagitis; I87.8 Other specified disorders of veins; K42.9 Umbilical hernia without obstruction or gangrene; G47.33 Obstructive sleep apnea (adult) (pediatric); K57.30 Diverticulosis of large intestine without perforation or abscess without bleeding; Z95.5 Presence of coronary angioplasty implant and graft; Z79.01 Long term (current) use of anticoagulants; Z82.3 Family history of stroke; Z86.16 Personal history of COVID-19; Z87.891 Personal history of nicotine dependence; Z95.810 Presence of automatic (implantable) cardiac defibrillator; H40.9 Unspecified glaucoma; Z86.73 Personal history of transient ischemic attack (TIA), and cerebral infarction without residual deficits; Z86.718 Personal history of other venous thrombosis and embolism
CPT/HCPCS: 36415; 36600; 71045; 71250; 74176; 80048; 80053; 80202; 81001; 82330; 82728; 82803; 82962; 83540; 83550; 83605; 83735; 83880; 84100; 84145; 84484; 85025; 85027; 85379; 85610; 85730; 86850; 86900; 86901; 87040; 87077; 87086; 87088; 87149; 87186; 87631; 93005; 93306; 93312; 93320; 93325; 93971; 94002; 94003; 94640; 97162; 97166; 97530; 97535; 99285; J2185; J7030; J7040; J7050; Q9957; A4216; C8929; J0744

== ENCOUNTER 2023-07-29 05:24 | Day surgery (SDC) | payer MEDICARE, OTHER, SELFPAY ==
[2017-11-06 10:25] VITALS: BMI 37.2
[2023-07-29] VITALS (7 sets, daily range): BP systolic 86–121; BP diastolic 52–79; PULSE 57–73; RESP 14–18; TEMP 35.9–36.3; O2SAT 94–98; BMI 37.2
--- NOTE | 2023-07-29 | COLBX_PTH ---
PATIENT: Tim LONG LOC: [facility] U#:[id number] AGE/SX: 77/M ROOM: RE07/29/[address]: Dr. Allen Jackson DO : 1945 BED: DIS: 07/29/2023 SPEC #: [id number] RECD: 07/29/23 12:09 STATUS: JOSHUA RERuth #: [id number] SUSHIL: 07/29/23 00:[address]: Allen Jackson DEPT: SURGICAL PATHOLOGY RECD BY: Barry Weir ENTERED: 07/29/23 12:10 SP TYPE: COLON BX OTHR DR: Dr. Tomás Patino MD Tissues: Transverse colon Procedures: Surgery Specimen Level IV HEADER OPERATION: Colonoscopy, EGD polypectomy PRE-OP DIAGNOSIS: Anemia, GI bleed TISSUE SUBMITTED: Transverse colon polyp biopsy MICROSCOPIC DIAGNOSIS Transverse colon polyp, biopsy: Fragments of hyperplastic polyp. AM/mr 5/2/24 MICROSCOPIC DESCRIPTION Slides are reviewed. GROSS DESCRIPTION Received in fixative is one container labeled with the patient's name and designated Transverse colon polyp biopsy. The specimen consists of two irregular fragments of light ho soft tissue that in aggregate measure 0.8 x 0.2 x 0.1 cm. The specimen is totally submitted in one cassette. AM/mr 07/29/23 TC:5 CPT:13035
[2023-07-29 05:57] LABS: INR Fingerstick 1.1; Prothrombin Time Fingerstick 12.2 SEC (11.7-14.9)
[2023-07-29] MEDS: Lactated Ringers 1,000 ML 15 ML IV (06:06)
--- NOTE | 2023-07-29 06:37 | HP.PCM_ITS ---
History and Physical Date of Admission: 07/29/23 Tim LONG, is a 77 M who presents EGD. Patient EGD showed severe gastritis causing anemia of 6.1. Patient was hospitalized and transfused 2 units packed red blood cells. Patient's last hemoglobin on 11/09 was 8.4. Patient has been holding his Coumadin. Patient has been on Protonix 40 mg p.o. daily along with Carafate 3 times daily. He underwent an upper endoscopy back on 11/26/2022 and was discovered to have severely bleeding gastric polyps as a cause of his anemia. In the pulse of 90 they remove so he comes back today for removal of the bleeding polyps. [facility] Medical History (Updated 11/26/22 @ 13:[address] 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 Gastric reflux Gastritis GI bleed HFrEF (heart failure with reduced ejection fraction) High cholesterol History of CHF (congestive heart failure) History of deep vein thrombosis (DVT) of lower extremity History of echocardiogram History of edema History of heart attack History of irregular heartbeat History of non-ST elevation myocardial infarction (NSTEMI) (11/05/16) History of renal disease History of steroid therapy History of stress test Hyperlipidemia Insulin dependent diabetes mellitus Ischemic cardiomyopathy Leg cramps Localized edema Melena Morbid obesity with BMI of 40.0-44.9, adult Nondisp fracture of fifth left metatarsal bone with routine healing Nonrheumatic tricuspid (valve) insufficiency Nonsustained ventricular tachycardia Normocytic anemia 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 Other specified peripheral vascular diseases Paroxysmal atrial flutter Peripheral vascular occlusive disease Restless legs Shortness of breath on exertion Syncope TIA (transient ischemic attack) Type 2 diabetes mellitus Ulcer of left lower extremity with fat layer exposed Ulcer of right lower extremity Ulcer of right lower extremity with fat layer exposed Ulcer of right lower extremity with fat layer exposed Uncontrolled type 2 diabetes mellitus Walker as ambulation aid Walking difficulty due to ankle and foot Wears dentures Wears glasses Xerosis cutis Home Medications latanoprost 0.005 % eye drops 1 drp EACH EYE TID glaucoma 11/17/18 [History Last Taken 11/04/22 20:00] ropinirole 0.5 mg tablet 1 mg PO QHS legs 12/10/21 [History Last Taken 11/04/22 20:00] ondansetron 4 mg disintegrating tablet 4 mg PO Q6H PRN Nausea 03/16/22 [History Last Taken Unknown] albuterol sulfate 2.5 mg/3 mL (0.083 %) solution for nebulization 2.5 mg (3 mL) inhalation Q4H.RT PRN WHEEZING 30 days #360 mL 04/14/22 [Rx Last Taken 11/04/22 08:00] gabapentin 600 mg tablet 600 mg PO TID 30 days #90 tabs 04/14/22 [Rx Last Taken 11/26/22] albuterol sulfate 90 mcg/actuation aerosol inhaler 2 puff inhalation Q6H PRN shortness of breath or wheezing #8.5 grams 04/16/22 [Rx Last Taken Unknown] dapagliflozin propanediol 10 mg tablet (Farxiga) 10 mg PO DAILY diabetes [History Last Taken 11/04/22 08:00] nitroglycerin 0.4 mg sublingual tablet 0.4 mg sublingual Q5M PRN Chest Pain #25 tabs 04/21/22 [Rx Last Taken Unknown] dulaglutide 3 mg/0.5 mL subcutaneous pen injector (Trulicity) 3 mg subcut QWEEK diabetes 05/20/22 [History Last Taken 11/02/22 08:00] carvedilol 6.25 mg tablet 6.25 mg PO BID This is a dose increase #180 tabs 08/07/22 [Rx Last Taken 11/26/22] isosorbide mononitrate 60 mg tablet,extended release 24 hr 60 mg PO DAILY #90 tabs 08/07/22 [Rx Last Taken 11/26/22] rosuvastatin 40 mg tablet 40 mg PO QHS Cholesterol #90 tabs 08/19/22 [Rx Last Taken 11/04/22 20:00] furosemide 80 mg tablet (Lasix) 80 mg PO DAILY water pill 10/30/22 [History Last Taken 11/04/22 08:44] insulin lispro 100 unit/mL subcutaneous pen (Humalog KwikPen (U-100) Insulin) 21 unit subcut TID blood sugar 10/30/22 [History Last Taken 11/04/22 18:00] peg 3350-electrolytes 236 gram-22.74 gram-6.74 gram-5.86 gram solution (Golytely) 240 ml PO Q10M #4,000 mL 10/30/22 [Rx Last Taken 11/04/22 12:00] insulin glargine-yfgn 100 unit/mL (3 mL) subcutaneous pen 30 unit subcut BID blood sugar 11/04/22 [History Last Taken 11/04/22 20:00] pantoprazole 40 mg tablet,delayed release (Protonix) 40 mg PO DAILY #30 tabs 11/06/22 [Rx Last Taken Unknown] potassium chloride 20 mEq tablet,extended release(part/cryst) (Klor-Con M) 20 meq PO DAILY #90 tabs 11/13/22 [Rx Last Taken Unknown] sucralfate 1 gram tablet (Carafate) 1 g PO TID 14 days #42 tabs 11/13/22 [Rx Last Taken Unknown] nortriptyline 25 mg capsule 25 mg PO DAILY 11/24/22 [History Last Taken Unknown] Allergy/AdvReac Type Severity Reaction Status Date / Time ceftriaxone sodium Allergy Rash Verified 11/26/22 13:13 [From Rocephin] milk AdvReac Diarrhea Verified 11/26/22 13:13 morphine AdvReac hallucinati Verified 11/26/22 13:13 ons Family History (Reviewed 11/24/22 @ 10:06 by Francis Kwok HUMAN PERFORMANCE PROFESSOR, HUMAN PERFORMANCE PROFESSOR-C) Father , Age 78 Prostate cancerMother , Age 80 CVA (cerebral vascular accident)Sister Congestive heart failure Diabetes Hypertension Hyperlipidemia Atrial fibrillation CAD (coronary artery disease) Cardiac defibrillator in situSister Breast cancerSister Breast cancerBrother CAD (coronary artery disease) Myocardial infarction DiabetesBrother DiabetesBrother , Age 74 COPD (chronic obstructive pulmonary disease)Sister Alive and well Surgical History H/O colonoscopy with polypectomy (11/2017) History of angioplasty of peripheral vessel History of cardiac catheterization History of colonoscopy History of coronary artery stent placement (12/15/14) History of detached retina repair History of electrophysiologic study (11/23/02) History of esophagogastroduodenoscopy (EGD) History of implantable cardiac defibrillator (ICD) (11/19/17) History of implantable cardiac defibrillator (ICD) History of left heart catheterization (12/06/18) History of radiofrequency ablation procedure for cardiac arrhythmia (07/01/11) ICD (implantable cardioverter-defibrillator) in place Social History (Reviewed 11/24/22 @ 10:06 by Francis Kwok HUMAN PERFORMANCE PROFESSOR, HUMAN PERFORMANCE PROFESSOR-C) household members: spouse housing: house current occupational status: retired pets and animals: Yes (2 dogs, 2 cats) Smoking Status: Former smoker pack-years: 20 how long ago did patient quit smokin years ago alcohol intake: never caffeine: Yes Type: coffee Number of servings: 1 Past Medical/Surgical History Planned Operation Planned Operative Procedure/s: EGD S.O.S: No Previous Hospitalizations/Surgeries HX Hospitalizations: Yes (ANEMIA/BLEED/CHEST PAIN) HX of Surgeries: cardiac stent x2 icd colonoscopy Any Problems With Anesthesia: No You/Your Family Experience Fever (Hyperthermia) With Anes: No Cholinesterase deficiency: No Cardiovascular Hx Chest Pain within Last 2 months: Yes Hx of Irregular Heartbeat and/or Afib: Yes (A.FIB/V-TACH-sees Dr Perry) Hx Heart Attack: Yes Hx Congestive Heart Failure: Yes Hx Rheumatic Fever: No Hx Hypertension: Yes (CONTROLLED WITH MEDS/GOES UP AND DOWN) Hx Internal Defibrillator: Yes Hx Pacemaker: No When Was Last Pacemaker Check: 10/2017 Hx Cardiac Catheterization: Yes What facility was last heart cath performed: - Date of last Heart Cath: - Hx Cardiac Surgery/Stents/Etc.: Yes (stent x1) Hx Stress Test: Yes (2018 and echo 2017,stress echo 2014) Hx Pain in Legs when Walking/Leg Cramps: Yes (RLS) Respiratory Chronic Cough: Yes HX of Shortness of Breath: Yes (sob with 2 flights of stairs) Hoarseness: No Hx Chronic Obstructive Pulmonary Disease (COPD): No Hx Asthma: No Hx Emphysema: No Hx Sleep Apnea: Yes CPAP: No BIPAP: Yes Hx Respiratory Tract Infection/Cold (presently): No Result (for STOP score): Positive Hx Smoking: Yes (quit 2009) Smoking Status: Former smoker Gastrointestinal Hx Gastroesophageal Reflux: Yes Controlled With Meds: Yes Hx Gastrointestinal Disorders: No Hx Gastrointestinal Bleed: No Hx Ulcer: No (Gastritis and Esophagitis) Hx Hiatal Hernia: No Difficulty Chewing/Swallowing: No Special diet followed at home: Yes (diabetic) Hx Unplanned Weight Loss of 20#: No HX Unplanned Weight Gain of 20#: No Neurological Hx Seizures: No HX Syncope/Blackout Spells/Unconsciousness: Yes (VASOVAGAL SYNCOPE) Hx Transient Ischemic Attacks (TIA): Yes Hx Multiple Sclerosis: No Hx Parkinson's Disease: No Hx Head/Neck Injury: No Hx Headaches: No Hx Back Injury/Pain: Yes Recent Onset of Speech Difficulty: No Restless Legs: No Does patient have nerve stimulator: No Blood Disorder Hx Leukemia: No Bleeding Tendencies: No (ON PLAVIX,COUMADIN AND ASA) Hx Deep Vein Thrombosis: Yes (several yrs ago dvt) Hx High Cholesterol: Yes Blood Transmitted Disease: No Hx Hepatitis: No Hx Cirrhosis: No Hx Anemia: No Hx Blood Disorders: No Reproduction : No Is Patient Lactating: No Hx Hysterectomy: No Hx Tubal Ligation: No Are You Post Menopause: No Genitourinary Hx Renal Disease: Yes (CKD III) Hx Dialysis: No Musculoskeletal Hx Arthritis: Yes (Rheumatoid arthritis) Hx Rheumatoid Arthritis: Yes Hx Gout: No Recent Onset of an Orthopedic Problem: No Endocrine Hx Diabetes: Yes Insulin: Yes Thyroid Disease: No Hx Steroid Therapy: No Psycho/Social Hx Substance Use: No Hx Alcohol Use: No Hx Anxiety: No Hx Depression: Yes Mental Illness: No Hx Dementia: No Miscellaneous Hx Cancer: No Recent Exposure to Contagious Disease: No Hx of C-Diff: No Any Loose Teeth: No (FULL SET OF DENTURES) Allergies ceftriaxone sodium [From Rocephin] Allergy (Verified 11/26/22 13:13) Rashmilk Adverse Reaction (Verified 11/26/22 13:13) Diarrheamorphine Adverse Reaction (Verified 11/26/22 13:13) hallucinations Maternal: Family History Father Prostate cancerMother CVA (cerebral vascular accident)Sister Congestive heart failure Diabetes Hypertension Hyperlipidemia Atrial fibrillation CAD (coronary artery disease) Cardiac defibrillator in situSister Breast cancerSister Breast cancerBrother CAD (coronary artery disease) Myocardial infarction DiabetesBrother DiabetesBrother COPD (chronic obstructive pulmonary disease)Sister Alive and well Stroke (CVA, age 80.) Paternal: Family History (Reviewed 11/24/22 @ 10:06 by Francis Kwok HUMAN PERFORMANCE PROFESSOR, HUMAN PERFORMANCE PROFESSOR-C) Father Prostate cancerMother CVA (cerebral vascular accident)Sister Congestive heart failure Diabetes Hypertension Hyperlipidemia Atrial fibrillation CAD (coronary artery disease) Cardiac defibrillator in situSister Breast cancerSister Breast cancerBrother CAD (coronary artery disease) Myocardial infarction DiabetesBrother DiabetesBrother COPD (chronic obstructive pulmonary disease)Sister Alive and well Cancer (Prostate CA, 78 y/o.) Sibling: Family History (Reviewed 11/24/22 @ 10:06 by Francis Kwok HUMAN PERFORMANCE PROFESSOR, HUMAN PERFORMANCE PROFESSOR-C) Father Prostate cancerMother CVA (cerebral vascular accident)Sister Congestive heart failure Diabetes Hypertension Hyperlipidemia Atrial fibrillation CAD (coronary artery disease) Cardiac defibrillator in situSister Breast cancerSister Breast cancerBrother CAD (coronary artery disease) Myocardial infarction DiabetesBrother DiabetesBrother COPD (chronic obstructive pulmonary disease)Sister Alive and well Diabetes Discharge Is Pt Admitted From a [facility], or a Senior Living: No After D/C, Where Do you Plan to Go: Return Home From the PAT History Number of Risk Factors: 6 Vital Signs Vital Signs Vital Signs: 11/26/2312:14 11/26/2312:14 Temperature 98.0 F Temperature Source Temporal Pulse Rate 84 Respiratory Rate 18 Respiratory Pattern Normal Blood Pressure 129/77 H Blood Pressure Mean 94 Blood Pressure Source Monitor Blood Pressure Position Semi-Fowlers Blood Pressure Location Left Arm Pulse Ox 95 Oxygen Delivery Method Room Air Weight Weight: 257 lb 11.526 oz Body Mass Index (BMI) 39.2 Physical Exam Const alert, oriented x3 and no apparent distress HEENT normocephalic and head/scalp atraumatic Resp normal respiratory effort Cardio regular rate GI soft to palpation and non-tender; Negative for non-distended Palpation: Negative for guarding Neuro CN's II-XII intact bilaterally Psych mental status grossly normal Assessment & Plan Assessment/Plan (1) Gastritis: (2) GI bleed: PLAN: Plan I have discussed the above with the patient. I have offered the patient esophagogastroduodenoscopy for evaluation. I have explained the risks/benefits of the procedure and described the procedure. I have discussed the risks with the patient, including but not limited to: infection, bleeding, perforation of the GI tract requiring emergency surgery, inability to complete the procedure, injury to any internal organs, complications of anesthesia, etc. - the patient understands and agrees to proceed. I have answered all the patient's questions to the patient's satisfaction and the patient has no further questions.I have examined the patient and the H&P has been reviewed. There are no clinical changes since date of exam.
[2023-07-29 06:59] LABS: Bedside Glucose 158 mg/dL (74-106)
--- NOTE | 2023-07-29 07:15 | OP.EGD_ITS ---
Patient Name: Tim Devi Procedure Date: 07/29/2023 6:26 AM Date of : 1945 Age: 77 Procedure: Upper GI endoscopy Indications: Iron deficiency anemia, Suspected upper gastrointestinal bleeding Providers: Allen Jackson DO Referring MD: Tomás Patino Medicines: Monitored Anesthesia Care Patient Profile: This is a 77 year old male. Refer to note in patient chart for documentation of history and physical. Patient has symptoms. Complications: No immediate complications. Procedure: Pre-Anesthesia Assessment: - Prior to the procedure, a History and Physical was performed, and patient medications and allergies were reviewed. The patient is competent. The risks and benefits of the procedure and the sedation options and risks were discussed with the patient. All questions were answered and informed consent was obtained. Patient identification and proposed procedure were verified by the physician. Mental Status Examination: normal. Prophylactic Antibiotics: The patient does not require prophylactic antibiotics. Prior Anticoagulants: The patient has taken no anticoagulant or antiplatelet agents. After reviewing the risks and benefits, the patient was deemed in satisfactory condition to undergo the procedure. The anesthesia plan was to use monitored anesthesia care (MAC). Immediately prior to administration of medications, the patient was re-assessed for adequacy to receive sedatives. The heart rate, respiratory rate, oxygen saturations, blood pressure, adequacy of pulmonary ventilation, and response to care were monitored throughout the procedure. The physical status of the patient was re-assessed after the procedure. After obtaining informed consent, the endoscope was passed under direct vision. Throughout the procedure, the patient's blood pressure, pulse, and oxygen saturations were monitored continuously. The Colonoscope was introduced through the mouth, and advanced to the second part of duodenum. The upper GI endoscopy was accomplished without difficulty. The patient tolerated the procedure well. Scope In: 6:47:36 AM Scope Out: 6:53:08 AM Total Procedure Duration Time 0 hours 5 minutes 32 seconds Findings: The examined esophagus was normal. Multiple 2 to 3 mm semi-pedunculated polyps with no bleeding and stigmata of recent bleeding were found in the entire examined stomach. No gross lesions were noted in the second portion of the duodenum. Impression: - Normal esophagus. - Multiple gastric polyps. - No gross lesions in the second portion of the duodenum. - No specimens collected. Recommendation: - Discharge patient to home. - Resume previous diet. - Continue present medications. - Patient should be intubated and expected to stay in the hospital with the understanding that he could bleed a lot and possibly bleed excessively during his procedure of removal of all polyps. Patient will likely need referral to tertiary care center. Procedure Code(s): --- Professional --- 05212, Esophagogastroduodenoscopy, flexible, transoral; diagnostic, including collection of specimen(s) by brushing or washing, when performed (separate procedure) CPT copyright 2021 [employer]. All rights reserved. The codes documented in this report are preliminary and upon medical records coder review may be revised to meet current compliance requirements. Allen Jackson DO 07/29/2023 7:14:50 AM This report has been signed electronically. Number of Addenda: 0 Note Initiated On: 07/29/2023 6:26 AM
--- NOTE | 2023-07-29 07:15 | OP.CCLET_ITS ---
07/29/2023 Tomás Patino [address] [place] [address] Re : Upper GI endoscopy procedure for Tim Shandra Dear Dr. Patino This procedure was performed on Saturday, July 29, 2023. My impressions and recommendations are as follows: Impressions : - Normal esophagus. - Multiple gastric polyps. - No gross lesions in the second portion of the duodenum. - No specimens collected. Recommendations : - Discharge patient to home. - Resume previous diet. - Continue present medications. - Patient should be intubated and expected to stay in the hospital with the understanding that he could bleed a lot and possibly bleed excessively during his procedure of removal of all polyps. Patient will likely need referral to tertiary care center. My findings are described in the full procedure note, which is enclosed. If I can be of further assistance, please feel free to contact me at . Sincerely, Allen Jackson, 07/29/2023 7:14:50 AM This report has been signed electronically.
--- NOTE | 2023-07-29 07:18 | OP.COLON_ITS ---
Patient Name: Tim Devi Procedure Date: 07/29/2023 6:53 AM Date of : 1945 Age: 77 Procedure: Colonoscopy Indications: Iron deficiency anemia Providers: Allen Jackson DO Referring MD: Tomás Patino Medicines: Monitored Anesthesia Care Patient Profile: This is a 77 year old male. Refer to note in patient chart for documentation of history and physical. Patient has symptoms. Last Colonoscopy: 1 year ago. Complications: No immediate complications. Procedure: Pre-Anesthesia Assessment: - Prior to the procedure, a History and Physical was performed, and patient medications and allergies were reviewed. The patient is competent. The risks and benefits of the procedure and the sedation options and risks were discussed with the patient. All questions were answered and informed consent was obtained. Patient identification and proposed procedure were verified by the physician. Mental Status Examination: normal. Prophylactic Antibiotics: The patient does not require prophylactic antibiotics. Prior Anticoagulants: The patient has taken no anticoagulant or antiplatelet agents. After reviewing the risks and benefits, the patient was deemed in satisfactory condition to undergo the procedure. The anesthesia plan was to use monitored anesthesia care (MAC). Immediately prior to administration of medications, the patient was re-assessed for adequacy to receive sedatives. The heart rate, respiratory rate, oxygen saturations, blood pressure, adequacy of pulmonary ventilation, and response to care were monitored throughout the procedure. The physical status of the patient was re-assessed after the procedure. After I obtained informed consent, the scope was passed under direct vision. Throughout the procedure, the patient's blood pressure, pulse, and oxygen saturations were monitored continuously. The Colonoscope was introduced through the anus and advanced to the cecum, identified by appendiceal orifice and ileocecal valve. The ileocecal valve, appendiceal orifice, and rectum were photographed. Scope In: 6:55:29 AM Scope Withdrawal Time 0 hours 8 minutes 24 seconds Scope Out: 7:07:32 AM Total Procedure Duration Time 0 hours 12 minutes 3 seconds Findings: The perianal and digital rectal examinations were normal. A 5 mm polyp was found in the transverse colon. The polyp was sessile. The polyp was removed with a jumbo cold forceps. Resection and retrieval were complete. Verification of patient identification for the specimen was done. Estimated blood loss was minimal. Many small-mouthed diverticula were found in the recto-sigmoid colon, sigmoid colon and descending colon. A tattoo was seen in the transverse colon. The tattoo site appeared normal. Stool was found in the cecum. Impression: - One 5 mm polyp in the transverse colon, removed with a jumbo cold forceps. Resected and retrieved. - Diverticulosis in the recto-sigmoid colon, in the sigmoid colon and in the descending colon. - A tattoo was seen in the transverse colon. The tattoo site appeared normal. - Stool in the cecum. Recommendation: - Discharge patient to home. - Resume previous diet. - Continue present medications. - Repeat colonoscopy in 1 year for surveillance. Procedure Code(s): --- Professional --- 57439, Colonoscopy, flexible; with biopsy, single or multiple CPT copyright 2021 [employer]. All rights reserved. The codes documented in this report are preliminary and upon icd 9 coder review may be revised to meet current compliance requirements. Allen Jackson DO 07/29/2023 7:18:17 AM This report has been signed electronically. Number of Addenda: 0 Note Initiated On: 07/29/2023 6:53 AM
--- NOTE | 2023-07-29 07:18 | OP.CCLET_ITS ---
07/29/2023 Tomás Patino [address] [place] [address] Re : Colonoscopy procedure for Tim Ernandezchristina Dear Dr. Patino This procedure was performed on Saturday, July 29, 2023. My impressions and recommendations are as follows: Impressions : - One 5 mm polyp in the transverse colon, removed with a jumbo cold forceps. Resected and retrieved. - Diverticulosis in the recto-sigmoid colon, in the sigmoid colon and in the descending colon. - A tattoo was seen in the transverse colon. The tattoo site appeared normal. - Stool in the cecum. Recommendations : - Discharge patient to home. - Resume previous diet. - Continue present medications. - Repeat colonoscopy in 1 year for surveillance. My findings are described in the full procedure note, which is enclosed. If I can be of further assistance, please feel free to contact me at . Sincerely, Allen Jackson, 07/29/2023 7:18:17 AM This report has been signed electronically.
== END 2023-07-29 08:17 | disposition home or self-care (01) ==
LOC: EN 05:24 → AC 05:28
PROVIDERS: PCP Family Medicine; Referring Provider Family Medicine; Visit Provider Internal Medicine Gastroenterology
PROC: 0DJD8ZZ Inspection of Lower Intestinal Tract, Via Natural or Artificial Opening Endoscopic (ICD-10-PCS; CPT 45378; principal; 2023-07-29 06:25)
DX: K29.71 Gastritis, unspecified, with bleeding (principal); I50.22 Chronic systolic (congestive) heart failure; I13.0 Hypertensive heart and chronic kidney disease with heart failure and stage 1 through stage 4 chronic kidney disease, or unspecified chronic kidney disease; Z79.4 Long term (current) use of insulin; E11.22 Type 2 diabetes mellitus with diabetic chronic kidney disease; N18.30 Chronic kidney disease, stage 3 unspecified; D50.9 Iron deficiency anemia, unspecified; Z87.891 Personal history of nicotine dependence; K63.5 Polyp of colon; I25.10 Atherosclerotic heart disease of native coronary artery without angina pectoris; E78.5 Hyperlipidemia, unspecified; K31.7 Polyp of stomach and duodenum; Z86.16 Personal history of COVID-19; I25.5 Ischemic cardiomyopathy; Z82.3 Family history of stroke; K21.00 Gastro-esophageal reflux disease with esophagitis, without bleeding; K57.30 Diverticulosis of large intestine without perforation or abscess without bleeding
CPT/HCPCS: 45380; 43235; 36416; 82962; 85610; 88305; J7120

== ENCOUNTER 2023-09-16 08:50 | Day surgery (SDC) | payer MEDICARE, OTHER, SELFPAY ==
[2017-11-06 10:25] VITALS: BMI 37.2
[2023-09-16] VITALS (14 sets, daily range): BP systolic 103–130; BP diastolic 59–89; PULSE 70–78; RESP 16; TEMP 36.1–36.3; O2SAT 90–98; BMI 37.7
[2023-09-16 09:02] LABS: INR Fingerstick 1.2; Prothrombin Time Fingerstick 13.8 SEC (11.7-14.9)
[2023-09-16] MEDS: Lactated Ringers 1,000 ML 15 ML IV (09:50)
[2023-09-16 10:15] LABS: Bedside Glucose 152 mg/dL (74-106)
--- NOTE | 2023-09-16 10:15 | EGD_PTH ---
PATIENT: Tim LONG LOC: EN U#:[id number] AGE/SX: 77/M ROOM: RE09/16/[address]: Dr. Allen Jackson DO : 1945 BED: DIS: 09/16/2023 SPEC #: [id number] RECD: 09/16/23 14:17 STATUS: JOSHUA RERuth #: [id number] SUSHIL: 09/16/23 10:[address]: Allen Jackson DEPT: SURGICAL PATHOLOGY RECD BY: Conner Weeks ENTERED: 09/16/23 14:38 SP TYPE: EGD BIOPSY OTHR DR: Dr. Tomás Patino MD Tissues: Gastric mucous membrane Procedures: Surgery Specimen Level IV HEADER OPERATION: EGD, removing gastric polyps, injection of epinephrine PRE-OP DIAGNOSIS: Gastric polyps, GI bleed TISSUE SUBMITTED: Gastric polyps MICROSCOPIC DIAGNOSIS Gastric polyp, biopsy: Fragments of hyperplastic gastric polyp with focal ulceration and associated acute and chronic inflammation, granulation and fibropurulent material. / 09/17/2023 MICROSCOPIC DESCRIPTION Slides are reviewed. GROSS DESCRIPTION Received in fixative is one container labeled with the patient's name and designated Gastric polyps. The specimen consists of multiple irregular and friable fragments of pink-ho soft tissue measuring in aggregate 6.0 x 5.5 x 1.5cm. The larger fragments are sectioned and submitted along with the smaller fragments in four cassettes. / 09/16/2023 TC:1 CPT:81902
--- NOTE | 2023-09-16 10:31 | PCM.HP.BLA ---
History and Physical Date of Admission: 09/16/23 Tim LONG, is a 77 M who presents to the office today for follow up. OV 08.07.23 pt reports that he has not had any blood in his stool since EGD on 07.29.23. Reports since scope he has been having diarrhea; reports 2 bm per day and usually one is diarrhea. Pt denies any other GI symptoms of concern. Pt continues with pantoprazole. ROS Const Constitutional: Positive for fatigue; No fever(s) or weight change ENT ENT: No difficulty swallowing Cardio Cardiology: Positive for leg pain with exertion Gastro GI: Positive for bloating, diarrhea and excessive flatus; No abdominal pain, belching, change in bowel habits, change in stool character, coffee ground emesis, constipation, cramping, heartburn, difficulty swallowing, feeling full early, incontinent of stools, Vomiting blood/hematemesis, Blood in stool, loose stools, Black,tarry stools, nausea/dyspepsia, pain with swallowing, vomiting or other Musc Musculoskeletal: Positive for muscle cramps, Arthritis, restless legs, leg pain at night and leg pain with exertion; No joint pain Skin Skin: Positive for dry skin and itchy eyes; No yellowing of the eye Neuro Neurology: Positive for restless legs Psych Psychiatric: No anxiety and No depression Endo Endocrine: Positive for fatigue; No weight change Aller/Imm Allergy/Immunologic: Positive for itchy eyes Vincenzo/Lymp Hematologic/Lymphatic: Positive for easy bleeding and easy bruising Exam Const General: cooperative and comfortable Nutritional Appearance: average body habitus and well nourished [facility] Head: normal to inspection Ears: hearing grossly normal bilaterally Nose: external nose normal Face and sinus: normal facial exam Mouth: oral mucosae normal Throat: posterior oropharynx normal Eyes General: appearance normal, both eyes and all related structures Neck Neck: normal visual inspection Chest Chest palpation & inspection: normal inspection of the chest and normal palpation of entire chest wall Resp Effort & Inspection: normal respiratory effort Auscultation: Bilateral: Clear to Auscultation Cardio Palpation: normal PMI Rate: regular rate Rhythm: regular rhythm GI Inspection: normal to inspection Auscultation: normal bowel sounds Percussion: normal to percussion Palpation: no hepatosplenomegaly Skin General: no rashes or lesions noted Neuro General: patient alert Extrem General: normal to inspection Psych Affect: normal affect Assessment and Plan Assessment and Plan (1) GI bleed: Status: Acute Comment: 10/2022 s/p 2 units PRBCs--coumadin held Plan: 77-year-old gentleman with past medical history significant for CAD status post PTCA with stents, COPD, hypertension, obesity, hyperlipidemia, CHF who is status post EGD for upper GI bleed and colonoscopy for fecal positive stools. Findings (EGD): The examined esophagus was normal. Multiple 2 to 3 mm semi-pedunculated polyps with no bleeding and stigmata of recent bleeding were found in the entire examined stomach. No gross lesions were noted in the second portion of the duodenum. Impression: - Normal esophagus. - Multiple gastric polyps. - No gross lesions in the second portion of the duodenum. - No specimens collected. Recommendation: - Discharge patient to home. - Resume previous diet. - Continue present medications. - Patient should be intubated and expected to stay in the hospital with the understanding that he could bleed a lot and possibly bleed excessively during his procedure of removal of all polyps Findings: The perianal and digital rectal examinations were normal. A 5 mm polyp was found in the transverse colon. The polyp was sessile. The polyp was removed with a jumbo cold forceps. Resection and retrieval were complete. Verification of patient identification for the specimen was done. Estimated blood loss was minimal. Many small-mouthed diverticula were found in the recto-sigmoid colon, sigmoid colon and descending colon. A tattoo was seen in the transverse colon. The tattoo site appeared normal. Stool was found in the cecum. Impression: - One 5 mm polyp in the transverse colon, removed with a jumbo cold forceps. Resected and retrieved. - Diverticulosis in the recto-sigmoid colon, in the sigmoid colon and in the descending colon. - A tattoo was seen in the transverse colon. The tattoo site appeared normal. - Stool in the cecum. Recommendation: - Discharge patient to home. - Resume previous diet. - Continue present medications. - Repeat colonoscopy in 1 year for surveillance. We had a long talk regarding his recurrent bleeding secondary to gastric polyps and his stomach. I told him that the only way that we could do the procedure at this institution if he was intubated to protect his airway and we discussed the risks of removing these polyps. I told him because these polyps are so vascular that they would need to be removed in a certain way for to be safe as possible therefore we would book him for an extended time at least an hour to remove these polyps from his stomach. He said that he would discuss it with his family. We went over the risk of bleeding and the need for emergent surgery if the bleeding cannot be stopped and he agreed to discuss with his family and get back to us. I have examined the patient and the H&P has been reviewed. There are no clinical changes since date of exam.
--- NOTE | 2023-09-16 10:56 | PCM.PRE.AN2 ---
ASA Classification* ASA Classification ASA Classification: 3 Assessment & Plan Anesthesia* Anesthesia Assessment Anesthesia Assessment: Discussed sedation and/or anesthesia options, risks, benefits, and alternatives with patient/parents/legal guardian/POA. Questions invited. The patient/parents/legal guardian/POA seems to understand and agrees to proceed with anesthesia plan. Reviewed the physical assessment, medical history, allergy history and patient home medications list prior to surgery/procedure/anesthetic and documented any changes. Performed airway and anesthesia risk assessments. 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 When Was Last Pacemaker Check 10/201711/26/22 13:42 QUESTION #4 FULL TEXT: You/Your Family Experience fever (hyperthermia) with Anesthesia Last Oral Intake Last Oral intake: Last Oral Intake NPO since 00:00 09/16/23 09:36 Meds taken in AM with sips of Yes 09/16/23 09:36 water? 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 press operator Female No 09/11/23 15:01 HX of Motion Sickness No 09/11/23 15:01 HX of N/V After Surgery No 09/11/23 15:01 Non-Smoker Yes 09/11/23 15:01 Duration of Surgery greater No 09/11/23 15:01 than 60 minutes Number of Risk Factors 1 09/11/23 15:01 PONV Score Low Risk 09/11/23 15:01 Height & Weight Height & Weight: Anesthesia: Height & Weight Height 5 ft 8 in 09/16/23 09:36 Weight: 112.491 kg 09/16/23 09:36 Body Mass Index (BMI) 37.7 09/16/23 09:36 Respiratory Assessment Respiratory Assessment - bulldozer press operator: Respiratory Tract Infection Hx - bulldozer press operator Hx Respiratory Tract Infection No 09/11/23 15:01 STOP Sleep Apnea STOP Sleep Apnea - bulldozer press operator: STOP Sleep Apnea - bulldozer press operator Hx Hypertension Yes: PER PT, CONTROLLED 09/11/23 15:01 Hx Sleep Apnea Yes 09/11/23 15:01 CPAP Yes 09/11/23 15:01 BIPAP No 09/11/23 15:01 Do you snore loudly (louder than talking or can be heard Do you often feel tired/ fatigued/ sleepy during daytime? Has anyone observed you stop breathing during sleep? STOP Results Positive 09/11/23 15:01 QUESTION #5 FULL TEXT : Do you snore loudly (louder than talking or can be heard through closed doors)? 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 Specify any problems Hx of Preganancy in last 3 N/A 09/11/23 15:01 Months Nurse Filling Out Transfusion DSCHRIBER 09/11/23 15:01 & Questions: Date: 09/11/23 09/11/23 15:01 Time: 15:02 09/11/23 15:01 Patient unable to answer at this time (ie. confused, unrespo /Reproduction History /Reproductive History - bulldozer press operator: /Reproductive Hx- bulldozer press operator Hx Now No 09/11/23 15:01 Gestational Age (in weeks): EDC: Hx Hx Para Hx Section SAB No 09/11/23 15:01 Active Medications Active Medications: Current Medications Generic Name Dose Route Start Last Admin Trade Name Frefabien PRN Reason Stop Dose Admin Lactated Ringer's 1,000 mls @ 15 mls/hr 09/16/23 09:30 09/16/23 09:50 IV 15 mls/hr .Q48H MELISSA Administration Anesthesia Focused Assessment* Temperature: 97.3 F Pulse Rate: 70 Blood Pressure: 103/59 Respiratory Rate: 16 Pulse Ox: 97 Oxygen Delivery Method: Room Air Airway Assessment Mouth opens: >3 cm Mallampati Score: IV Teeth Condition: Dentures (Dentures are out) Neck Range of motion (ROM): Limited ROM (Slightly limited extension) Pertinent Findings EKG Pertinent Findings:: EKG done April 22, 2023 was sinus rhythm with some PACs and intermittent ventricular conduction delay Stress Test Pertinent Findings:: Stress test was done April 2021 ejection fraction of 30% otherwise negative ECHO Pertinent Findings:: Echocardiogram shows old [place] ejection fraction 55% Consults Pertinent Findings:: Cardiology consult was performed on June 11, 2023. Testing was reviewed and plan was to continue current treatment Other Pertinent Findings:: Fingerstick blood sugar was done preoperatively was 151 Focused Labs Anesthesia Preop lab: CBC WBC 7.3 K/mm3 (4.4-11.0) 04/23/23 07:02 RBC 4.38 M/mm3 (4.6-6.2) L 04/23/23 07:02 Hgb 8.2 g/dL (13.0-16.5) L 04/23/23 07:02 Hct 30.3 % (40-54) L 04/23/23 07:02 Plt Count 134 K/mm3 (150-450) L 04/23/23 07:02 CHEMISTRY Potassium 3.7 mmol/L (3.5-5.1) 04/23/23 07:02 Sodium 136 mmol/L (136-145) 04/23/23 07:02 Magnesium 1.9 mg/dL (1.6-2.6) 04/21/23 02:56 Phosphorus 2.8 mg/dL (2.5-4.9) 04/21/23 02:56 BUN 14 mg/dL (7-18) 04/23/23 07:02 Creatinine 0.90 mg/dL (0.70-1.30) 04/23/23 07:02 Glucose 244 mg/dL (74-106) H 04/23/23 07:02 TSH 1.69 uIU/mL (0.358-3.74) 04/22/21 03:55 COAG PT 19.1 SECONDS (11.7-14.9) H 04/17/23 21:47 Lab additional comments: PT/INR was repeated preoperatively. PT was 13.8 INR was 1.2 Review of Systems (Anesthesia) ROS Narrative System reviewed and no additional complaints, except as documented. [facility] Medical History History of DVT (deep vein thrombosis) History of pacemaker History of CHF (congestive heart failure) Gastritis GI bleed Chest pain Wears dentures Wears glasses Insulin dependent diabetes mellitus Walker as ambulation aid Arthritis History of renal disease High cholesterol Restless legs Back pain TIA (transient ischemic attack) Syncope Difficulty swallowing Gastric reflux Former smoker Shortness of breath on exertion Leg cramps History of edema History of echocardiogram History of stress test Cardiology follow-up encounter History of heart attack History of irregular heartbeat Melena Anticoagulant long-term use Blood in stool Morbid obesity with BMI of 40.0-44.9, adult Uncontrolled type 2 diabetes mellitus COPD exacerbation Anemia Dyspnea on exertion Normocytic anemia HFrEF (heart failure with reduced ejection fraction) Peripheral vascular occlusive disease Dermatitis of lower extremity Ulcer of right lower extremity Essential (primary) hypertension Cellulitis Ulcer of left lower extremity with fat layer exposed 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 Corns and callosities Xerosis cutis Other specified peripheral vascular diseases Other hereditary and idiopathic neuropathies Cellulitis of right leg Ulcer of right lower extremity with fat layer exposed Walking difficulty due to ankle and foot Nondisp fracture of fifth left metatarsal bone with routine healing Localized edema Ulcer of right lower extremity with fat layer exposed Diabetes mellitus type 2 in obese Paroxysmal atrial flutter History of deep vein thrombosis (DVT) of lower extremity Nonsustained ventricular tachycardia Hyperlipidemia History of non-ST elevation myocardial infarction (NSTEMI) (11/05/16) Atherosclerotic heart disease of unga coronary artery with other forms of angina pectoris Nonrheumatic tricuspid (valve) insufficiency Ischemic cardiomyopathy Home Medications ?Medication ?Instructions ?Recorded ?Last Taken ?Type latanoprost 0.005 % eye drops 1 drp EACH EYE TID glaucoma 11/17/18 02/09/23 History albuterol sulfate 2.5 mg/3 mL 2.5 mg (3 mL) inhalation Q4H.RT 04/14/22 02/09/23 Rx (0.083 %) solution for nebulization PRN WHEEZING 30 days #360 mL albuterol sulfate 90 mcg/actuation 2 puff inhalation Q6H PRN 04/16/22 02/09/23 Rx aerosol inhaler shortness of breath or wheezing #8.5 grams dapagliflozin propanediol 10 mg 10 mg PO DAILY diabetes 04/18/22 02/09/23 History tablet (Farxiga) nitroglycerin 0.4 mg sublingual 0.4 mg sublingual Q5M PRN Chest 04/21/22 Unknown Rx tablet Pain #25 tabs dulaglutide 3 mg/0.5 mL 3 mg subcut [place] diabetes 05/20/22 09/06/23 History subcutaneous pen injector (Trulicity) nortriptyline 25 mg capsule 25 mg PO QHS 11/24/22 02/09/23 History furosemide 80 mg tablet (Lasix) 80 mg PO DAILY 01/21/23 02/09/23 History gabapentin 300 mg capsule 900 mg PO Q8H 02/09/23 09/16/23 06:00 History rosuvastatin 40 mg tablet 40 mg PO QHS Cholesterol #90 tabs 03/24/23 Unknown Rx insulin glargine-yfgn 100 unit/mL 40 unit subcut BID blood sugar 06/11/23 Unknown History (3 mL) subcutaneous pen insulin lispro 100 unit/mL 28 unit subcut TID blood sugar 06/11/23 Unknown History subcutaneous pen (Humalog KwikPen (U-100) Insulin) isosorbide mononitrate 60 mg 60 mg PO DAILY #90 tabs 09/02/23 09/16/23 06:00 Rx tablet,extended release 24 hr pantoprazole 40 mg tablet,delayed See Rx Instructions .Route 09/02/23 09/16/23 06:00 Rx release .COMPLEX #30 tabs carvedilol 6.25 mg tablet 6.25 mg PO BID #180 tabs 09/07/23 09/16/23 08:00 Rx ropinirole 0.5 mg tablet 1 mg (2 x 0.5 mg) PO QHS legs #90 09/07/23 Unknown Rx tabs potassium chloride 20 mEq 30 meq PO BID 09/11/23 Unknown History tablet,extended release(part/cryst) (Klor-Con M) warfarin 6 mg tablet 6 mg PO THSA 09/11/23 09/11/23 History warfarin 7.5 mg tablet 7.5 mg PO SUMOTUWEFR 09/11/23 09/11/23 History Allergy/AdvReac Type Severity Reaction Status Date / Time ceftriaxone sodium (From Allergy Rash Verified 09/16/23 09:34 Rocephin) milk AdvReac Diarrhea Verified 09/16/23 09:34 morphine AdvReac hallucinati Verified 09/16/23 09:34 ons Family History Father , Age 78 Prostate cancer Mother , Age 80 CVA (cerebral vascular accident) Sister Congestive heart failure Diabetes Hypertension Hyperlipidemia Atrial fibrillation CAD (coronary artery disease) Cardiac defibrillator in situ Sister Breast cancer Sister Breast cancer Brother CAD (coronary artery disease) Myocardial infarction Diabetes Brother Diabetes Brother , Age 74 COPD (chronic obstructive pulmonary disease) Sister Alive and well Surgical History History of colonoscopy History of esophagogastroduodenoscopy (EGD) History of implantable cardiac defibrillator (ICD) History of cardiac catheterization History of angioplasty of peripheral vessel History of implantable cardiac defibrillator (ICD) (11/19/17) History of radiofrequency ablation procedure for cardiac arrhythmia (07/01/11) History of electrophysiologic study (11/23/02) History of left heart catheterization (12/06/18) History of coronary artery stent placement (12/15/14) H/O colonoscopy with polypectomy (11/2017) History of detached retina repair ICD (implantable cardioverter-defibrillator) in place Social History household members: spouse housing: house current occupational status: retired pets and animals: Yes (2 dogs, 2 cats) Smoking Status: Former smoker pack-years: 20 how long ago did patient quit smokin years ago alcohol intake: never caffeine: Yes Type: coffee Number of servings: 1
[2023-09-16] MEDS: 0.9% Normal Saline (Pres. free 10 ML Vial (11:45)
[2023-09-16] MEDS: Epinephrine (1 mg/ml) 1 MG/ML VIAL (11:45)
--- NOTE | 2023-09-16 12:55 | PCM.POST.ANE ---
Anesthesia: Postop Eval I Current Vital Signs Temperature: 97 F Pulse Rate: 72 Blood Pressure: 130/80 Respiratory Rate: 16 Pulse Ox: 97 Oxygen Delivery Method: Room Air Assessment Airway patent: Yes Spontaneous unlabored respirations: Yes Mental status: Awake and Calm nausea: No Vomiting: No Anesthesia Complication: No Fluid Hydration Crystalloid volume administer (ml): 600 Total IV fluid infused: 600 Progress Note Anesthesia document: Postop Eval 1 completed: Yes
--- NOTE | 2023-09-16 12:56 | OP.EGD_ITS ---
Patient Name: Tim Devi Procedure Date: 09/16/2023 10:42 AM Date of : 1945 Age: 77 Procedure: Upper GI endoscopy Indications: Acute post hemorrhagic anemia, Iron deficiency anemia secondary to chronic blood loss, Iron deficiency anemia, Melena Providers: Allen Jackson DO Medicines: Monitored Anesthesia Care Patient Profile: This is a 77 year old male. Refer to note in patient chart for documentation of history and physical. Patient has symptoms. Complications: No immediate complications. Procedure: Pre-Anesthesia Assessment: - Prior to the procedure, a History and Physical was performed, and patient medications and allergies were reviewed. The patient is competent. The risks and benefits of the procedure and the sedation options and risks were discussed with the patient. All questions were answered and informed consent was obtained. Patient identification and proposed procedure were verified by the physician in the pre-procedure area. Mental Status Examination: alert and oriented. Airway Examination: normal oropharyngeal airway and neck mobility. Respiratory Examination: clear to auscultation. CV Examination: normal. Prophylactic Antibiotics: The patient does not require prophylactic antibiotics. Prior Anticoagulants: The patient has taken no anticoagulant or antiplatelet agents. ASA Grade Assessment: IV - A patient with severe systemic disease that is a constant threat to life. After reviewing the risks and benefits, the patient was deemed in satisfactory condition to undergo the procedure. The anesthesia plan was to use monitored anesthesia care (MAC). Immediately prior to administration of medications, the patient was re-assessed for adequacy to receive sedatives. The heart rate, respiratory rate, oxygen saturations, blood pressure, adequacy of pulmonary ventilation, and response to care were monitored throughout the procedure. The physical status of the patient was re-assessed after the procedure. After obtaining informed consent, the endoscope was passed under direct vision. Throughout the procedure, the patient's blood pressure, pulse, and oxygen saturations were monitored continuously. The Endoscope was introduced through the mouth, and advanced to the second part of duodenum. The upper GI endoscopy was accomplished without difficulty. The patient tolerated the procedure well. Scope In: 11:44:46 AM Scope Out: 12:40:41 PM Total Procedure Duration Time 0 hours 55 minutes 55 seconds Findings: The examined esophagus was normal. Multiple 1 to 4 mm pedunculated and sessile polyps with bleeding and stigmata of recent bleeding were found in the cardia, in the gastric fundus, in the gastric body, on the anterior wall of the stomach, on the greater curvature of the stomach, on the lesser curvature of the stomach, on the posterior wall of the stomach and in the gastric antrum. Polypectomy was attempted, initially using a saline injection-lift technique with a hot snare. Polyp resection was incomplete with this device. This intervention then required a different device and polypectomy technique. The polyp was removed with a cold snare. Resection was complete, and retrieval was complete. Area was successfully injected with 20 mL of a 0.1 mg/mL solution of epinephrine for drug delivery. To prevent bleeding after the polypectomy, two hemostatic clips were successfully placed. Clip appeals examiner: [email or web address]. There was no bleeding at the end of the procedure. No gross lesions were noted in the duodenal bulb. One oozing cratered gastric ulcer with a visible vessel was found in the gastric body. The lesion was 6 mm in largest dimension. Area was successfully injected with 5 mL of a 0.1 mg/mL solution of epinephrine for drug delivery. Coagulation for hemostasis using monopolar probe was successful. Estimated blood loss was minimal. Diffuse severely congested mucosa was found in the entire examined stomach. Coagulation for destruction of remaining portion of lesion using argon plasma at 0.3 liters/minute and 20 carrasco was successful. Estimated blood loss was minimal. Impression: - Normal esophagus. - Multiple gastric polyps. Resected and retrieved. Injected. Clips were placed. Clip appeals examiner: [email or web address]. - No gross lesions in the duodenal bulb. Recommendation: - Discharge patient to home. - Full liquid diet today. - Continue present medications. - Await pathology results. - Repeat upper endoscopy in 4 months for surveillance. Procedure Code(s): --- Professional --- 30781, 59, Esophagogastroduodenoscopy, flexible, transoral; with control of bleeding, any method 99106, 51, Esophagogastroduodenoscopy, flexible, transoral; with removal of tumor(s), polyp(s), or other lesion(s) by snare technique 94823, 59, Esophagogastroduodenoscopy, flexible, transoral; with directed submucosal injection(s), any substance CPT copyright 2021 [employer]. All rights reserved. The codes documented in this report are preliminary and upon fitness and wellness coordinator review may be revised to meet current compliance requirements. Allen Jackson DO 09/16/2023 12:55:50 PM This report has been signed electronically. Number of Addenda: 0 Note Initiated On: 09/16/2023 10:42 AM
--- NOTE | 2023-09-16 12:56 | OP.CCLET_ITS ---
09/16/2023 Tomás Patino [id number] [place] [address] Re : Upper GI endoscopy procedure for Tim Devi Dear Dr. Patino This procedure was performed on Saturday, September 16, 2023. My impressions and recommendations are as follows: Impressions : - Normal esophagus. - Multiple gastric polyps. Resected and retrieved. Injected. Clips were placed. 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 - No gross lesions in the duodenal bulb. Recommendations : - Discharge patient to home. - Full liquid diet today. - Continue present medications. - Await pathology results. - Repeat upper endoscopy in 4 months for surveillance. My findings are described in the full procedure note, which is enclosed. If I can be of further assistance, please feel free to contact me at . Sincerely, Allen Friend, 09/16/2023 12:55:50 PM This report has been signed electronically.
--- NOTE | 2023-09-16 14:42 | PCM.POSTANE2 ---
Anesthesia Postop Eval I Sum Postop Eval Completion status Anesthesia document: Postop Eval 1 completed: Yes Anesthesia Postop Eval I Summary Anesthesia Postop Eval I Summary: Anesthesia Postop Eval I: Assessment Summary Airway patent Yes 09/16/23 13:03 [email or web address] Spontaneous unlabored Yes 09/16/23 13:03 [email or web address] respirations Mental status Awake,Calm 09/16/23 13:03 [email or web address] nausea No 09/16/23 13:03 [email or web address] Vomiting No 09/16/23 13:03 [email or web address] Anesthesia Postop Eval I: Fluid Summary Crystalloid volume administer 600 09/16/23 13:03 [email or web address] (ml) Colloids volume administered ( ml) Blood Product volume administered (ml) Total IV fluid infused 600 09/16/23 13:03 [email or web address] Anesthesia Postop Eval I: Summary Notes Anesthesia Complication No 09/16/23 13:03 [email or web address] Anesthesia Complication Comment: Post-operative progress note Anesthesia: Postop Eval II Evaluation Mental status: Awake and Calm Pain Level: 0 nausea: No Vomiting: No Progress Note Post-operative progress note: Patient's only complaint is that his restless legs are acting up Complications Anesthesia Complication: No
== END 2023-09-16 15:09 | disposition home or self-care (01) ==
LOC: EN 08:51 → AC 08:53
PROVIDERS: PCP Family Medicine; Referring Provider Family Medicine; Visit Provider Internal Medicine Gastroenterology
PROC: 0DJ08ZZ Inspection of Upper Intestinal Tract, Via Natural or Artificial Opening Endoscopic (ICD-10-PCS; CPT 43235; principal; 2023-09-16 10:10)
DX: K25.3 Acute gastric ulcer without hemorrhage or perforation (principal); I50.20 Unspecified systolic (congestive) heart failure; I11.0 Hypertensive heart disease with heart failure; Z79.4 Long term (current) use of insulin; K25.7 Chronic gastric ulcer without hemorrhage or perforation; D50.9 Iron deficiency anemia, unspecified; I25.119 Atherosclerotic heart disease of native coronary artery with unspecified angina pectoris; G47.33 Obstructive sleep apnea (adult) (pediatric); K21.9 Gastro-esophageal reflux disease without esophagitis; E78.00 Pure hypercholesterolemia, unspecified; I25.2 Old myocardial infarction; K31.7 Polyp of stomach and duodenum; G25.81 Restless legs syndrome; Z79.51 Long term (current) use of inhaled steroids; Z79.899 Other long term (current) drug therapy; Z79.01 Long term (current) use of anticoagulants; Z86.718 Personal history of other venous thrombosis and embolism; Z95.0 Presence of cardiac pacemaker
CPT/HCPCS: 43255; 43251; 43236; 36416; 82962; 85610; 88305; J2405

== ENCOUNTER → 2023-09-18 | Outpatient (CLI) | payer MEDICARE, OTHER, SELFPAY ==
[2017-11-06 10:25] VITALS: BMI 37.2
[2023-09-18 09:12] LABS: International Normalized Ratio 1.4; Prothrombin Time (Protime)PT. 16.7 SECONDS (11.7-14.9)
[2023-09-18 09:14] LABS: Hematocrit 33.2 % (40-54); Hemoglobin 9.2 g/dL (13.0-16.5)
== END | disposition home or self-care (01) ==
LOC: LAB 08:21
PROVIDERS: PCP Family Medicine; Referring Provider Internal Medicine Gastroenterology; Visit Provider Internal Medicine Gastroenterology
DX: D64.9 Anemia, unspecified (principal)
CPT/HCPCS: 36415; 85014; 85018; 85610

== ENCOUNTER 2023-09-23 15:11 | Emergency (ER) | payer MEDICARE, OTHER, SELFPAY ==
[2017-11-06 10:25] VITALS: BMI 37.2
[2023-09-23 15:12] VITALS: BP 130/72; PULSE 94; RESP 19; TEMP 36.4; O2SAT 96
[2023-09-23 15:29] VITALS: BMI 38.4
--- NOTE | 2023-09-23 15:44 | VDLE_ITS ---
Reason For Study: BLE Swelling RIGHT LEFT GSV is normal. GSV is normal. CFV is compressible, spontaneous, phasic, CFV is compressible, spontaneous, phasic, competent and demonstrates normal competent, and demonstrates normal augmentation. augmentation. FV is compressible, spontaneous, phasic, FV is compressible, spontaneous, phasic, competent and demonstrates normal competent and demonstrates normal augmentation. augmentation. POP V is compressible, spontaneous, phasic, POP V is compressible, spontaneous, phasic, competent and demonstrates normal competent and demonstrates normal augmentation. augmentation. T/P Trunk is compressible. T/P Trunk is compressible. PTV is compressible. PTV is compressible. RT PerV is compressible. LT PerV is compressible. Procedure This is a venous duplex using B-mode, color flow and spectral Doppler. Exam performed portable in ED. The exam was diagnostic. A preliminary report was called and/or faxed to Dr. Galvan. VL/Venous Duplex US - [place] Extrem Interpretation Summary No evidence for acute deep venous thrombosis bilateral lower extremities with p atent and compressible bilateral great saphenous veins. Ordering Physician: Ramiro Galvan Referring Physician: MD Sukumar Tomás Performed By: Leonardo Mckinney, RVT
--- NOTE | 2023-09-23 15:45 | ED.VIS.LOWEX ---
HPI History of Present Illness Chief Complaint: Lower Extremity Injury Informant: patient Narrative Narrative: 77-year-old male presenting to the emergency room due to concerns with his lower legs. He states for about a week now he has had more swelling in the bilateral legs left greater than right. He states his right leg is more red. He is on Coumadin for unknown reason but per the chart he has a history of atrial flutter. He denies any fevers. He states that he has some minor discomfort in his calves which he attributes to swelling. He states that he called his doctor's office and they told him to come to the hospital because he may have a blood clot in his legs. Patient states that he takes Lasix every day but when asked his dose he tells me four. Unsure of mg dosage. [facility] Medical History History of DVT (deep vein thrombosis) History of pacemaker History of CHF (congestive heart failure) Gastritis GI bleed Chest pain Wears dentures Wears glasses Insulin dependent diabetes mellitus Walker as ambulation aid Arthritis History of renal disease High cholesterol Restless legs Back pain TIA (transient ischemic attack) Syncope Difficulty swallowing Gastric reflux Former smoker Shortness of breath on exertion Leg cramps History of edema History of echocardiogram History of stress test Cardiology follow-up encounter History of heart attack History of irregular heartbeat Melena Anticoagulant long-term use Blood in stool Morbid obesity with BMI of 40.0-44.9, adult Uncontrolled type 2 diabetes mellitus COPD exacerbation Anemia Dyspnea on exertion Normocytic anemia HFrEF (heart failure with reduced ejection fraction) Peripheral vascular occlusive disease Dermatitis of lower extremity Ulcer of right lower extremity Essential (primary) hypertension Cellulitis Ulcer of left lower extremity with fat layer exposed 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 Corns and callosities Xerosis cutis Other specified peripheral vascular diseases Other hereditary and idiopathic neuropathies Cellulitis of right leg Ulcer of right lower extremity with fat layer exposed Walking difficulty due to ankle and foot Nondisp fracture of fifth left metatarsal bone with routine healing Localized edema Ulcer of right lower extremity with fat layer exposed Diabetes mellitus type 2 in obese Paroxysmal atrial flutter History of deep vein thrombosis (DVT) of lower extremity Nonsustained ventricular tachycardia Hyperlipidemia History of non-ST elevation myocardial infarction (NSTEMI) (11/05/16) Atherosclerotic heart disease of [place] coronary artery with other forms of angina pectoris Nonrheumatic tricuspid (valve) insufficiency Ischemic cardiomyopathy Home Medications ?Medication ?Instructions ?Recorded ?Last Taken ?Type latanoprost 0.005 % eye drops 1 drp EACH EYE BID glaucoma 11/17/18 09/23/23 History albuterol sulfate 2.5 mg/3 mL 2.5 mg (3 mL) inhalation Q4H.RT 04/14/22 02/09/23 Rx (0.083 %) solution for nebulization PRN WHEEZING 30 days #360 mL albuterol sulfate 90 mcg/actuation 2 puff inhalation Q6H PRN 04/16/22 02/09/23 Rx aerosol inhaler shortness of breath or wheezing #8.5 grams dapagliflozin propanediol 10 mg 10 mg PO DAILY diabetes 04/18/22 09/23/23 History tablet (Farxiga) nitroglycerin 0.4 mg sublingual 0.4 mg sublingual Q5M PRN Chest 04/21/22 Unknown Rx tablet Pain #25 tabs dulaglutide 3 mg/0.5 mL 3 mg subcut [place] diabetes 05/20/22 09/20/23 History subcutaneous pen injector (Trulicity) nortriptyline 25 mg capsule 25 mg PO QHS 11/24/22 09/22/23 History furosemide 80 mg tablet (Lasix) 80 mg PO DAILY 01/21/23 09/23/23 History gabapentin 300 mg capsule 900 mg PO Q8H 02/09/23 09/23/23 History rosuvastatin 40 mg tablet 40 mg PO QHS Cholesterol #90 tabs 03/24/23 09/22/23 Rx insulin glargine-yfgn 100 unit/mL 40 unit subcut BID blood sugar 06/11/23 09/23/23 History (3 mL) subcutaneous pen insulin lispro 100 unit/mL 28 unit subcut TID blood sugar 06/11/23 09/23/23 History subcutaneous pen (Humalog KwikPen (U-100) Insulin) isosorbide mononitrate 60 mg 60 mg PO DAILY #90 tabs 09/02/23 09/23/23 Rx tablet,extended release 24 hr pantoprazole 40 mg tablet,delayed See Rx Instructions .Route 09/02/23 09/23/23 Rx release .COMPLEX #30 tabs carvedilol 6.25 mg tablet 6.25 mg PO BID #180 tabs 09/07/23 09/23/23 Rx ropinirole 0.5 mg tablet 1 mg (2 x 0.5 mg) PO QHS legs #90 09/07/23 09/22/23 Rx tabs potassium chloride 20 mEq 30 meq PO BID 09/11/23 09/23/23 History tablet,extended release(part/cryst) (Klor-Con M) warfarin 6 mg tablet 6 mg PO THSA 09/11/23 09/19/23 History warfarin 7.5 mg tablet 7.5 mg PO SUMOTUWEFR 09/11/23 09/23/23 History furosemide 40 mg tablet (Lasix) See Rx Instructions .Route 09/23/23 Unknown Rx .COMPLEX #12 tabs potassium chloride 20 mEq 40 meq (2 x 20 mEq) PO BID 4 days 09/23/23 Unknown Rx tablet,extended release #16 tabs Allergy/AdvReac Type Severity Reaction Status Date / Time ceftriaxone sodium (From Allergy Rash Verified 09/16/23 09:34 Rocephin) milk AdvReac Diarrhea Verified 09/16/23 09:34 morphine AdvReac hallucinati Verified 09/16/23 09:34 ons Family History Father , Age 78 Prostate cancer Mother , Age 80 CVA (cerebral vascular accident) Sister Congestive heart failure Diabetes Hypertension Hyperlipidemia Atrial fibrillation CAD (coronary artery disease) Cardiac defibrillator in situ Sister Breast cancer Sister Breast cancer Brother CAD (coronary artery disease) Myocardial infarction Diabetes Brother Diabetes Brother , Age 74 COPD (chronic obstructive pulmonary disease) Sister Alive and well Surgical History History of colonoscopy History of esophagogastroduodenoscopy (EGD) History of implantable cardiac defibrillator (ICD) History of cardiac catheterization History of angioplasty of peripheral vessel History of implantable cardiac defibrillator (ICD) (11/19/17) History of radiofrequency ablation procedure for cardiac arrhythmia (07/01/11) History of electrophysiologic study (11/23/02) History of left heart catheterization (12/06/18) History of coronary artery stent placement (12/15/14) H/O colonoscopy with polypectomy (11/2017) History of detached retina repair ICD (implantable cardioverter-defibrillator) in place Social History household members: spouse housing: house current occupational status: retired pets and animals: Yes (2 dogs, 2 cats) Smoking Status: Former smoker pack-years: 20 how long ago did patient quit smokin years ago alcohol intake: never caffeine: Yes Type: coffee Number of servings: 1 ROS ROS ED Constitutional Constitutional ED: Denies chills, fever(s) or weight loss Eyes Eyes: Denies change in vision or diplopia ENT ENT ED: Denies ear pain, rhinorrhea or sore throat Cardiovascular Cardiovascular: Denies chest pain, orthopnea, palpitations or racing heartbeat Respiratory/Chest Respiratory/Chest: Denies cough, dyspnea or orthopnea Gastrointestinal Gastrointestinal: Denies abdominal pain, diarrhea, nausea or vomiting Genitourinary Genitourinary ED: Denies dysuria, hematuria or urinary frequency Musculoskeletal Musculoskeletal: Reports other Details: Bilateral left greater than right leg swelling ; Denies arthralgias or myalgias Integumentary Reports other Details: Patient reports red right leg ; Denies abscess or rash Neurologic Neurologic: Denies headache(s) or weakness Psychiatric Psychiatric: Denies anxiety, depression, suicidal ideation or suicidal thoughts Endocrine Endocrinology: Denies polydipsia, polyphagia or polyuria Allergic/Immunologic Allergic/Immunologic ED: Denies mouth swelling, tongue swelling or urticaria EXAM Physical Exam Const Vital Signs: 09/23/23 15:12 09/23/23 19:11 09/23/23 20:05 Temperature 97.5 F L 98 F Temperature Source Temporal Pulse Rate 94 81 84 Respiratory Rate 19 H 19 H 16 Blood Pressure 130/72 H 151/89 H 134/84 H Blood Pressure Mean 91 109 100 Pulse Ox 96 98 96 Oxygen Delivery Method Room Air Room Air Positive well nourished, well developed and obese General Appearance ED: well developed Nutritional Appearance: obese HEENT Reports normocephalic, head/scalp atraumatic and moist mucous membranes Eyes PERRL and EOMs intact bilaterally Neck no lymphadenopathy, supple and no JVD Resp normal respiratory effort and clear to auscultation bilaterally Cardio regular rate, regular rhythm and no murmurs GI normal to inspection, nondistended, normoactive bowel sounds and non-tender Palpation: soft Back/Spine no CVA tenderness and normal ROM Extremity Extremity Narrative: There is left greater than right leg swelling of the foot ankles up to about the tibial tuberosity. He is mild to moderate in nature may be 1+. There is some chronic venous stasis changes particular the right leg. I do not appreciate erythema or increased warmth. There is brown discoloration of the skin which she states is darker than normal. There is some areas of skin thickening further representing chronicity. I do not palpate any cords. The calves are minimally tender no lymphangitic streaking. Neuro oriented x3 and CN's II-XII intact bilaterally Sensorium / Orientation: alert Motor Exam: strength 5/5 throughout Psych mental status grossly normal Mood & Affect: Negative for depressed or tearful Skin no rashes or lesions noted and no wounds MDM MDM MDM Narrative Medical decision making narrative: Differential diagnosis includes but not limited to DVT lymphedema electrolyte imbalance heart failure cellulitis Bilateral duplex ultrasound was obtained and is negative for DVT. White count 8.5 with hemoglobin 10.3. Patient's INR is subtherapeutic at 1.6. Creatinine slightly elevated off baseline at 1.66 potassium low at 2.8 magnesium is normal at 1.7 BNP at 43. Patient's not 100% sure of the doses of his medications I believe he is taking 80 of Lasix once a day and what sounds like 60 mg equivalents of potassium a day. I sat down with the patient and family we discussed the complexities of trying to diurese him with his kidney function in the setting of hypokalemia. Organ to have him watch his salt intake elevate his legs is much as possible we can increase his Lasix to over the next 4 days for 80 of Lasix in the morning 40 in the evening and have him take some additional potassium. He is to have a recheck of his blood work and physical exam on Thursday if possible. Patient will need to double his Coumadin dose tonight and tomorrow night. History & Record Review Discussion w/independent historian: Patient Lab Data Attestation: I reviewed the patient's lab results. Labs: Laboratory Results - last 24 hr 09/23/23 16:25 WBC 8.5 RBC 5.37 Hgb 10.3 L Hct 37.3 L MCV 69.5 L MCH 19.2 L MCHC 27.6 L RDW Std Deviation 47.3 H RDW Coeff of Galo 20.5 H Plt Count 187 MPV 8.8 Immature Gran % (Auto) 0.400 Neut % (Auto) 74.1 H Lymph % (Auto) 14.2 L Mccracken % (Auto) 8.3 Eos % (Auto) 2.5 Baso % (Auto) 0.5 Absolute Neuts (auto) 6.3 Absolute Lymphs (auto) 1.20 Nucleated RBC % 0 Differential Comment SCANNED Hypochromasia 2+ Anisocytosis 2+ Ovalocytes 1+ [place] Cells RARE Crenated Cell RARE PT 19.4 H INR 1.6 Sodium 135 L Potassium 2.8 L Chloride 97 L Carbon Dioxide 30.0 Anion Gap 8 BUN 37 H Creatinine 1.66 H Estim Creat Clear Calc 45.82 Est GFR (MDRD) Af Amer 52 L Est GFR (MDRD) Non-Af 43 L BUN/Creatinine Ratio 22.3 H Glucose 81 Calcium 9.1 Magnesium 1.7 B-Natriuretic Peptide 43.3 EKG Initial EKG: Attestation: I personally reviewed and interpreted this EKG as follows: Comments: Weyer than expected QRS a ventricular rate of 82 bpm. Prior EKG tracings: available for review Prior: Unchanged (mar 2023) Discharge Plan Triage Chief Complaint: Lower Extremity Injury ED Provider: Ramiro Galvan Dx/Rx/DC Orders Clinical Impression: Lymphedema, Hypokalemia, Subtherapeutic international normalized ratio (INR) Instructions: ED Hypokalemia, ED Lymphedema Prescriptions: New potassium chloride 20 mEq tablet extended release 40 meq PO BID 4 Days Qty: 16 0RF furosemide [Lasix] 40 mg tablet See Rx Instructions .ROUTE .COMPLEX Qty: 12 0RF Rx Instructions: 80 mg in the morning 40 mg in the evening x 4 days No Action dapagliflozin propanediol [Farxiga] 10 mg tablet 10 mg PO DAILY furosemide [Lasix] 80 mg tablet 80 mg PO DAILY insulin lispro [Humalog KwikPen Insulin] 100 unit/mL insulin pen 28 unit subcut TID nortriptyline 25 mg capsule 25 mg PO QHS latanoprost 2.5 ML drops 1 drp EACH EYE BID albuterol sulfate 2.5 mg /3 mL (0.083 %) Solution For Nebulization 2.5 mg inhalation Q4H.RT PRN (Reason: WHEEZING) 30 Days Qty: 360 0RF albuterol sulfate 90 mcg/actuation HFA aerosol inhaler 2 puff inhalation Q6H PRN (Reason: shortness of breath or wheezing) Qty: 8.5 0RF Trulicity 3 mg/0.5 mL Pen Injector 3 mg SUBCUT [place] insulin glargine-yfgn 100 unit/mL (3 mL) insulin pen 40 unit subcut BID gabapentin 300 mg capsule 900 mg PO Q8H warfarin 7.5 mg tablet 7.5 mg PO SUMOTUWEFR warfarin 6 mg tablet 6 mg PO THSA potassium chloride [Klor-Con M20] 20 mEq tablet,ER particles/crystals 30 meq PO BID nitroglycerin 0.4 mg tablet, sublingual 0.4 mg SL Q5M PRN (Reason: Chest Pain) Qty: 25 3RF rosuvastatin 40 mg tablet 40 mg PO QHS Qty: 90 3RF isosorbide mononitrate 60 mg tablet extended release 24 hr 60 mg PO DAILY Qty: 90 3RF pantoprazole 40 mg tablet,delayed release (DR/EC) See Rx Instructions .ROUTE .COMPLEX Qty: 30 2RF Dose Instruction: TAKE ONE TABLET BY MOUTH EVERY DAY (bills 12/12) Rx Instructions: TAKE ONE TABLET BY MOUTH EVERY DAY (bills 12/12) carvedilol 6.25 mg tablet 6.25 mg PO BID Qty: 180 3RF Rx Instructions: must administer with a meal/food ropinirole 0.5 mg tablet 1 mg PO QHS Qty: 90 3RF Primary Care Provider: Tomás Patino Referrals: Tomás Patino MD [Primary Care Provider] - 3-5 Days Activity Restrictions/Additional Instructions: As discussed managing lymphedema with a kidney issue is difficult. Please manage her salt intake very carefully. Need to replace your potassium. I would recommend increasing your potassium to 40 mg in the morning 40 mg in the evening. Please check the doses of your Lasix (furosemide). If you are taking 80 mg once a day I will have you increase your dosing to 80 mg in the morning 40 mg in the afternoon for the next 4 days. Elevate your legs as possible. I would recommend you getting repeat blood work later this week like on Thursday. Please call your doctor tomorrow to assist with this. Your INR today was 1.6 which is subtherapeutic. I recommend taking a double dose tonight and tomorrow night. Print Language: Azeri Disposition Disposition: Home, Self Care Discharge Date/Time: 09/23/23 20:08
[2023-09-23 16:35] LABS: Absolute Neutrophil Count 6.3 X10^3/uL (2.0-7.7); Basophil# 0.04 X10^3/uL; Basophil% 0.5 % (0-1); Eosinophil# 0.21 X10^3/uL; Eosinophils% 2.5 % (0-5); Hematocrit 37.3 % (40-54); Hemoglobin 10.3 g/dL (13.0-16.5); Lymphocyte % 14.2 % (19-41); Mean Corp Hgb Conc 27.6 g/dL (32-36); Mean Corpuscular Hgb 19.2 pg (27.0-32.0); Mean Corpuscular Volume 69.5 fL (80-94); Mean Platelet Vol. 8.8 fl (6.2-12.0); Monocyte% 8.3 % (0-10); NRBC Flagged by Analyzer 0 % (0-5); Neutrophil # 6.27 X10^3/uL (2.7-7.7); Neutrophil % 74.1 % (47-70); POSITIVE MORPHOLOGY YES; Platelet Count 187 K/mm3 (150-450); RBC Distribution Width CV 20.5 % (11.6-14.6); RBC Distribution Width SD 47.3 fl (35.1-43.9); Red Blood Count 5.37 M/mm3 (4.6-6.2); White Blood Count 8.5 K/mm3 (4.4-11.0)
[2023-09-23 16:43] LABS: International Normalized Ratio 1.6; Prothrombin Time (Protime)PT. 19.4 SECONDS (11.7-14.9)
[2023-09-23 16:44] LABS: Differential Indicated SCAN CRITERIA MET
[2023-09-23 16:59] LABS: BNP,B-Type NATRIURETIC PEPTIDE 43.3 pg/mL (0-100)
[2023-09-23 17:01] LABS: Anion Gap 8 (5-15); BUN 37 mg/dL (7-18); BUN/Creat Ratio 22.3 RATIO (10-20); Calcium,Total 9.1 mg/dL (8.5-10.1); Chloride 97 mmol/L (98-107); Creatinine, Serum 1.66 mg/dL (0.70-1.30); EST Glomerular Filtration Rate 43 mL/min (>60); Est Glom Filt Rate - Afr Amer 52 mL/min (>60); Estimated Creatinine Clearance 45.82 ml/min; Glucose 81 mg/dL (74-106); Potassium 2.8 mmol/L (3.5-5.1); Sodium Level 135 mmol/L (136-145)
[2023-09-23 17:22] LABS: Differential Comment SCANNED
[2023-09-23 17:23] LABS: Anisocytosis 2+; Hypochromasia 2+
[2023-09-23 17:25] LABS: Burr Cells RARE; Crenated RBC RARE; Ovalocyte 1+
--- NOTE | 2023-09-23 17:50 | EKG12_ITS ---
Test Reason : Blood Pressure : / mmHG Vent. Rate : 082 BPM Atrial Rate : 000 BPM P-R Int : 000 ms QRS Dur : 160 ms QT Int : 522 ms P-R-T Axes : 000 -21 075 degrees QTc Int : 609 ms Normal sinus rhythm with 1st degree A-V block , occasional PVC's Non-specific intra-ventricular conduction block Lateral infarct , age undetermined Inferior infarct , age undetermined Abnormal ECG Confirmed by Federico Mora ([id number]), department editor SABINE ALVAREZ ([id number]) on 09/24/2023 11:14:02 AM Referred By: Confirmed By:Federico Mora
[2023-09-23] MEDS: Potassium Chloride Oral Tablet 20 MEQ 40 MEQ PO (17:57)
[2023-09-23 18:40] LABS: Magnesium 1.7 mg/dL (1.6-2.6)
[2023-09-23 19:11] VITALS: BP 151/89; PULSE 81; RESP 19; O2SAT 98
[2023-09-23 20:05] VITALS: BP 134/84; PULSE 84; RESP 16; TEMP 36.6; O2SAT 96
== END 2023-09-23 20:08 | disposition home or self-care (01) ==
PROVIDERS: Emergency Provider Emergency Medicine; PCP Family Medicine; Visit Provider Emergency Medicine
DX: I89.0 Lymphedema, not elsewhere classified (principal); I11.0 Hypertensive heart disease with heart failure; I50.20 Unspecified systolic (congestive) heart failure; J44.9 Chronic obstructive pulmonary disease, unspecified; I48.92 Unspecified atrial flutter; E11.9 Type 2 diabetes mellitus without complications; Z79.4 Long term (current) use of insulin; E87.6 Hypokalemia; I25.10 Atherosclerotic heart disease of native coronary artery without angina pectoris; E78.00 Pure hypercholesterolemia, unspecified; Z87.891 Personal history of nicotine dependence; Z79.01 Long term (current) use of anticoagulants; Z95.0 Presence of cardiac pacemaker; Z86.73 Personal history of transient ischemic attack (TIA), and cerebral infarction without residual deficits; I25.2 Old myocardial infarction; Z79.85 Long-term (current) use of injectable non-insulin antidiabetic drugs; Z79.899 Other long term (current) drug therapy; K21.9 Gastro-esophageal reflux disease without esophagitis; Z86.718 Personal history of other venous thrombosis and embolism
CPT/HCPCS: 80048; 83735; 83880; 85025; 85610; 93005; 93970; 99283; A4216

== ENCOUNTER → 2023-10-20 | Outpatient (CLI) | payer MEDICARE, OTHER, SELFPAY ==
[2017-11-06 10:25] VITALS: BMI 37.2
== END | disposition home or self-care (01) ==
LOC: SL 13:30
PROVIDERS: PCP Family Medicine; Referring Provider Nurse Practitioner Acute Care; Visit Provider Nurse Practitioner Acute Care
DX: G47.33 Obstructive sleep apnea (adult) (pediatric) (principal)
CPT/HCPCS: 98960; G0463

== ENCOUNTER 2024-01-13 06:16 | Day surgery (SDC) | payer MEDICARE, OTHER, SELFPAY ==
[2017-11-06 10:25] VITALS: BMI 37.2
[2024-01-13] VITALS (9 sets, daily range): BP systolic 93–127; BP diastolic 65–82; PULSE 74–84; RESP 16–18; TEMP 36.1–36.6; O2SAT 95–99; BMI 38.5
--- NOTE | 2024-01-13 06:51 | HP.PCM_ITS ---
History and Physical Date of Admission: 01/13/24 Tim LONG, is a 77 M who presents to the office today for follow up. OV 08.07.23 pt reports that he has not had any blood in his stool since EGD on 07.29.23. Reports since scope he has been having diarrhea; reports 2 bm per day and usually one is diarrhea. Pt denies any other GI symptoms of concern. Pt continues with pantoprazole. ROS Const Constitutional: Positive for fatigue; No fever(s) or weight change ENT ENT: No difficulty swallowing Cardio Cardiology: Positive for leg pain with exertion Gastro GI: Positive for bloating, diarrhea and excessive flatus; No abdominal pain, belching, change in bowel habits, change in stool character, coffee ground emesis, constipation, cramping, heartburn, difficulty swallowing, feeling full early, incontinent of stools, Vomiting blood/hematemesis, Blood in stool, loose stools, Black,tarry stools, nausea/dyspepsia, pain with swallowing, vomiting or other Musc Musculoskeletal: Positive for muscle cramps, Arthritis, restless legs, leg pain at night and leg pain with exertion; No joint pain Skin Skin: Positive for dry skin and itchy eyes; No yellowing of the eye Neuro Neurology: Positive for restless legs Psych Psychiatric: No anxiety and No depression Endo Endocrine: Positive for fatigue; No weight change Aller/Imm Allergy/Immunologic: Positive for itchy eyes Vincenzo/Lymp Hematologic/Lymphatic: Positive for easy bleeding and easy bruising Exam Const General: cooperative and comfortable Nutritional Appearance: average body habitus and well nourished [facility] Head: normal to inspection Ears: hearing grossly normal bilaterally Nose: external nose normal Face and sinus: normal facial exam Mouth: oral mucosae normal Throat: posterior oropharynx normal Eyes General: appearance normal, both eyes and all related structures Neck Neck: normal visual inspection Chest Chest palpation & inspection: normal inspection of the chest and normal palpation of entire chest wall Resp Effort & Inspection: normal respiratory effort Auscultation: Bilateral: Clear to Auscultation Cardio Palpation: normal PMI Rate: regular rate Rhythm: regular rhythm GI Inspection: normal to inspection Auscultation: normal bowel sounds Percussion: normal to percussion Palpation: no hepatosplenomegaly Skin General: no rashes or lesions noted Neuro General: patient alert Extrem General: normal to inspection Psych Affect: normal affect Assessment and Plan Assessment and Plan (1) GI bleed: Status: Acute Comment: 10/2022 s/p 2 units PRBCs--coumadin held Plan: 77-year-old gentleman with past medical history significant for CAD status post PTCA with stents, COPD, hypertension, obesity, hyperlipidemia, CHF who is status post EGD for upper GI bleed and colonoscopy for fecal positive stools. Findings (EGD): The examined esophagus was normal. Multiple 2 to 3 mm semi-pedunculated polyps with no bleeding and stigmata of recent bleeding were found in the entire examined stomach. No gross lesions were noted in the second portion of the duodenum. Impression: - Normal esophagus. - Multiple gastric polyps. - No gross lesions in the second portion of the duodenum. - No specimens collected. Recommendation: - Discharge patient to home. - Resume previous diet. - Continue present medications. - Patient should be intubated and expected to stay in the hospital with the understanding that he could bleed a lot and possibly bleed excessively during his procedure of removal of all polyps Findings: The perianal and digital rectal examinations were normal. A 5 mm polyp was found in the transverse colon. The polyp was sessile. The polyp was removed with a jumbo cold forceps. Resection and retrieval were complete. Verification of patient identification for the specimen was done. Estimated blood loss was minimal. Many small-mouthed diverticula were found in the recto-sigmoid colon, sigmoid colon and descending colon. A tattoo was seen in the transverse colon. The tattoo site appeared normal. Stool was found in the cecum. Impression: - One 5 mm polyp in the transverse colon, removed with a jumbo cold forceps. Resected and retrieved. - Diverticulosis in the recto-sigmoid colon, in the sigmoid colon and in the descending colon. - A tattoo was seen in the transverse colon. The tattoo site appeared normal. - Stool in the cecum. Recommendation: - Discharge patient to home. - Resume previous diet. - Continue present medications. - Repeat colonoscopy in 1 year for surveillance. We had a long talk regarding his recurrent bleeding secondary to gastric polyps and his stomach. I told him that the only way that we could do the procedure at this institution if he was intubated to protect his airway and we discussed the risks of removing these polyps. I told him because these polyps are so vascular that they would need to be removed in a certain way for to be safe as possible therefore we would book him for an extended time at least an hour to remove these polyps from his stomach. He said that he would discuss it with his family. We went over the risk of bleeding and the need for emergent surgery if the bleeding cannot be stopped and he agreed to discuss with his family and get back to us. I have examined the patient and the H&P has been reviewed. There are no clinical changes since date of exam.
--- NOTE | 2024-01-13 07:23 | PCM.PRE.AN2 ---
ASA Classification* ASA Classification ASA Classification: 3 Assessment & Plan Anesthesia* Anesthesia Assessment Anesthesia Assessment: Discussed sedation and/or anesthesia options, risks, benefits, and alternatives with patient/parents/legal guardian/POA. Questions invited. The patient/parents/legal guardian/POA seems to understand and agrees to proceed with anesthesia plan. Reviewed the physical assessment, medical history, allergy history and patient home medications list prior to surgery/procedure/anesthetic and documented any changes. Performed airway and anesthesia risk assessments. Anesthesia Type Anesthesia Type: MAC Anesthesia Focused Assessment* Temperature: 97.0 F Pulse Rate: 84 Blood Pressure: 114/66 Respiratory Rate: 16 Pulse Ox: 96 Airway Assessment Mouth opens: >3 cm Mallampati Score: II Focused Labs Anesthesia Preop lab: CBC WBC 8.5 K/mm3 (4.4-11.0) 09/23/23 16:25 RBC 5.37 M/mm3 (4.6-6.2) 09/23/23 16:25 Hgb 10.3 g/dL (13.0-16.5) L 09/23/23 16:25 Hct 37.3 % (40-54) L 09/23/23 16:25 Plt Count 187 K/mm3 (150-450) 09/23/23 16:25 CHEMISTRY Potassium 2.8 mmol/L (3.5-5.1) L 09/23/23 16:25 Sodium 135 mmol/L (136-145) L 09/23/23 16:25 Magnesium 1.7 mg/dL (1.6-2.6) 09/23/23 16:25 Phosphorus 2.8 mg/dL (2.5-4.9) 04/21/23 02:56 BUN 37 mg/dL (7-18) H 09/23/23 16:25 Creatinine 1.66 mg/dL (0.70-1.30) H 09/23/23 16:25 Glucose 81 mg/dL (74-106) 09/23/23 16:25 POC Glucose 152 mg/dL (74-106) H 09/16/23 09:41 TSH 1.69 uIU/mL (0.358-3.74) 04/22/21 03:55 COAG PT 19.4 SECONDS (11.7-14.9) H 09/23/23 16:25 Pre-Assessment Diagnosis/Proposed Procedure Planned Operative Procedure(s): EGD Anesthesia History Anesthesia History - family services manager: Anesthesia History - family services manager Hx Hospitalization Yes: 03/2023 [facility] 01/08/24 15:30 Any Problems With Anesthesia No 01/08/24 15:30 Cholinesterase deficiency No 01/08/24 15:30 You/Your Family Experience No 01/08/24 15:30 fever (hyperthermia) with Relationship Recent Exposure to Contagious No 01/13/24 07:05 Disease Does patient have nerve No 01/08/24 15:30 stimulator Patient instructed to have device shut off --Does patient have Pacemaker Yes 01/13/24 07:05 or ICD? When Was Last Pacemaker Check 10/201711/26/22 13:42 QUESTION #4 FULL TEXT: You/Your Family Experience fever (hyperthermia) with Anesthesia Last Oral Intake Last Oral intake: Last Oral Intake NPO since 05:00 01/13/24 07:05 Meds taken in AM with sips of Yes 01/13/24 07:05 water? Meds patient instructed to see medlist 01/13/24 07:05 take am of surgery PONV PONV - family services manager: PONV - family services manager Female No 01/08/24 15:30 HX of Motion Sickness No 01/08/24 15:30 HX of N/V After Surgery No 01/08/24 15:30 Non-Smoker Yes 01/08/24 15:30 Duration of Surgery greater No 01/08/24 15:30 than 60 minutes Number of Risk Factors 1 01/08/24 15:30 PONV Score Low Risk 01/08/24 15:30 Height & Weight Height & Weight: Anesthesia: Height & Weight Height 5 ft 8 in 01/13/24 07:05 Weight: 115 kg 01/13/24 07:05 Body Mass Index (BMI) 38.5 01/13/24 07:05 Respiratory Assessment Respiratory Assessment - family services manager: Respiratory Tract Infection Hx - family services manager Hx Respiratory Tract Infection No 01/08/24 15:30 STOP Sleep Apnea STOP Sleep Apnea - family services manager: STOP Sleep Apnea - family services manager Hx Hypertension Yes: PER PT, CONTROLLED 01/08/24 15:30 Hx Sleep Apnea Yes 01/08/24 15:30 CPAP Yes 01/08/24 15:30 BIPAP No 01/08/24 15:30 Do you snore loudly (louder than talking or can be heard Do you often feel tired/ fatigued/ sleepy during daytime? Has anyone observed you stop breathing during sleep? STOP Results Positive 01/08/24 15:30 QUESTION #5 FULL TEXT : Do you snore loudly (louder than talking or can be heard through closed doors)? 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 Specify any problems Hx of Preganancy in last 3 N/A 01/08/24 15:30 Months Nurse Filling Out Transfusion NBUCHER 01/08/24 15:30 & Questions: Date: 01/08/24 01/08/24 15:30 Time: 15:31 01/08/24 15:30 Patient unable to answer at this time (ie. confused, unrespo /Reproduction History /Reproductive History - family services manager: /Reproductive Hx- family services manager Hx Now Gestational Age (in weeks): EDC: Hx Hx Para Hx Section SAB No 01/08/24 15:30 PFSH Medical History History of DVT (deep vein thrombosis) History of pacemaker History of CHF (congestive heart failure) Gastritis GI bleed Chest pain Wears dentures Wears glasses Insulin dependent diabetes mellitus Walker as ambulation aid Arthritis History of renal disease High cholesterol Restless legs Back pain TIA (transient ischemic attack) Syncope Difficulty swallowing Gastric reflux Former smoker Shortness of breath on exertion Leg cramps History of edema History of echocardiogram History of stress test Cardiology follow-up encounter History of heart attack History of irregular heartbeat Melena Anticoagulant long-term use Blood in stool Morbid obesity with BMI of 40.0-44.9, adult Uncontrolled type 2 diabetes mellitus COPD exacerbation Anemia Dyspnea on exertion Normocytic anemia HFrEF (heart failure with reduced ejection fraction) Peripheral vascular occlusive disease Dermatitis of lower extremity Ulcer of right lower extremity Essential (primary) hypertension Cellulitis Ulcer of left lower extremity with fat layer exposed 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 Corns and callosities Xerosis cutis Other specified peripheral vascular diseases Other hereditary and idiopathic neuropathies Cellulitis of right leg Ulcer of right lower extremity with fat layer exposed Walking difficulty due to ankle and foot Nondisp fracture of fifth left metatarsal bone with routine healing Localized edema Ulcer of right lower extremity with fat layer exposed Diabetes mellitus type 2 in obese Paroxysmal atrial flutter History of deep vein thrombosis (DVT) of lower extremity Nonsustained ventricular tachycardia Hyperlipidemia History of non-ST elevation myocardial infarction (NSTEMI) (11/05/16) Atherosclerotic heart disease of [place] coronary artery with other forms of angina pectoris Nonrheumatic tricuspid (valve) insufficiency Ischemic cardiomyopathy Home Medications ?Medication ?Instructions ?Recorded ?Last Taken ?Type albuterol sulfate 2.5 mg/3 mL 2.5 mg (3 mL) inhalation Q4H.RT 04/14/22 02/09/23 Rx (0.083 %) solution for nebulization PRN WHEEZING 30 days #360 mL albuterol sulfate 90 mcg/actuation 2 puff inhalation Q6H PRN 04/16/22 02/09/23 Rx aerosol inhaler shortness of breath or wheezing #8.5 grams dapagliflozin propanediol 10 mg 10 mg PO DAILY diabetes 04/18/22 09/23/23 History tablet (Farxiga) nitroglycerin 0.4 mg sublingual 0.4 mg sublingual Q5M PRN Chest 04/21/22 Unknown Rx tablet Pain #25 tabs dulaglutide 3 mg/0.5 mL 3 mg subcut [place] diabetes 05/20/22 01/03/24 History subcutaneous pen injector (Trulicity) nortriptyline 25 mg capsule 25 mg PO QHS 11/24/22 01/12/24 History gabapentin 300 mg capsule 900 mg PO Q8H 02/09/23 01/13/24 History rosuvastatin 40 mg tablet 40 mg PO QHS Cholesterol #90 tabs 03/24/23 09/22/23 Rx insulin glargine-yfgn 100 unit/mL 40 unit subcut BID blood sugar 06/11/23 01/12/24 History (3 mL) subcutaneous pen insulin lispro 100 unit/mL 28 unit subcut TID blood sugar 06/11/23 01/12/24 History subcutaneous pen (Humalog KwikPen (U-100) Insulin) isosorbide mononitrate 60 mg 60 mg PO DAILY #90 tabs 09/02/23 01/13/24 Rx tablet,extended release 24 hr carvedilol 6.25 mg tablet 6.25 mg PO BID #180 tabs 09/07/23 01/13/24 Rx ropinirole 0.5 mg tablet 1 mg (2 x 0.5 mg) PO QHS legs #90 09/07/23 01/12/24 Rx tabs warfarin 6 mg tablet 6 mg PO THSA 09/11/23 01/12/24 History warfarin 7.5 mg tablet 7.5 mg PO SUMOTUWEFR 09/11/23 01/10/24 History furosemide 80 mg tablet (Lasix) 80 mg PO BID 10/07/23 01/12/24 History latanoprost 0.005 % eye drops 1 drp EACH EYE TID glaucoma 10/07/23 01/12/24 History metolazone 2.5 mg tablet 2.5 mg PO DAILY 10/07/23 01/12/24 History ondansetron 4 mg disintegrating 4 mg PO Q6H PRN nausea and vomiting 10/07/23 Unknown History tablet potassium chloride 20 mEq 20 meq PO TID 10/07/23 01/12/24 History tablet,extended release(part/cryst) (Klor-Con M) pantoprazole 40 mg tablet,delayed 40 mg PO DAILY #30 TABLETS 01/01/24 01/13/24 Rx release Allergy/AdvReac Type Severity Reaction Status Date / Time ceftriaxone sodium (From Allergy Rash Verified 01/13/24 06:56 Rocephin) milk AdvReac Diarrhea Verified 01/13/24 06:56 morphine AdvReac hallucinati Verified 01/13/24 06:56 ons Family History Father , Age 78 Prostate cancer Mother , Age 80 CVA (cerebral vascular accident) Sister Congestive heart failure Diabetes Hypertension Hyperlipidemia Atrial fibrillation CAD (coronary artery disease) Cardiac defibrillator in situ Sister Breast cancer Sister Breast cancer Brother CAD (coronary artery disease) Myocardial infarction Diabetes Brother Diabetes Brother , Age 74 COPD (chronic obstructive pulmonary disease) Sister Alive and well Surgical History History of colonoscopy History of esophagogastroduodenoscopy (EGD) History of implantable cardiac defibrillator (ICD) History of cardiac catheterization History of angioplasty of peripheral vessel History of implantable cardiac defibrillator (ICD) (11/19/17) History of radiofrequency ablation procedure for cardiac arrhythmia (07/01/11) History of electrophysiologic study (11/23/02) History of left heart catheterization (12/06/18) History of coronary artery stent placement (12/15/14) H/O colonoscopy with polypectomy (11/2017) History of detached retina repair ICD (implantable cardioverter-defibrillator) in place Social History household members: spouse housing: house current occupational status: retired pets and animals: Yes (2 dogs, 2 cats) Smoking Status: Former smoker pack-years: 20 how long ago did patient quit smokin years ago alcohol intake: never caffeine: Yes Type: coffee Number of servings: 1 Review of Systems (Anesthesia) ROS Narrative System reviewed and no additional complaints, except as documented.
[2024-01-13 07:33] LABS: Bedside Glucose 208 mg/dL (74-106)
--- NOTE | 2024-01-13 08:17 | PCM.POST.ANE ---
Anesthesia: Postop Eval I Current Vital Signs Temperature: 97.2 F Pulse Rate: 74 Blood Pressure: 93/69 Respiratory Rate: 18 Pulse Ox: 95 Oxygen Delivery Method: Room Air Assessment Airway patent: Yes Spontaneous unlabored respirations: Yes Mental status: Asleep nausea: No Vomiting: No Anesthesia Complication: No Fluid Hydration Crystalloid volume administer (ml): 20 Total IV fluid infused: 20 Progress Note Anesthesia document: Postop Eval 1 completed: Yes
--- NOTE | 2024-01-13 09:25 | PCM.POSTANE2 ---
Anesthesia Postop Eval I Sum Postop Eval Completion status Anesthesia document: Postop Eval 1 completed: Yes Anesthesia Postop Eval I Summary Anesthesia Postop Eval I Summary: Anesthesia Postop Eval I: Assessment Summary Airway patent Yes 01/13/24 08:17 [email or web address] Spontaneous unlabored Yes 01/13/24 08:17 [email or web address] respirations Mental status Asleep 01/13/24 08:17 [email or web address] nausea No 01/13/24 08:17 [email or web address] Vomiting No 01/13/24 08:17 [email or web address] Anesthesia Postop Eval I: Fluid Summary Crystalloid volume administer 20 01/13/24 08:17 [email or web address] (ml) Colloids volume administered ( ml) Blood Product volume administered (ml) Total IV fluid infused 20 01/13/24 08:17 [email or web address] Anesthesia Postop Eval I: Summary Notes Anesthesia Complication No 01/13/24 08:17 [email or web address] Anesthesia Complication Comment: Post-operative progress note Anesthesia: Postop Eval II Evaluation Mental status: Awake Pain Level: 0 nausea: No Vomiting: No
[2024-01-15 16:02] LABS: INR Fingerstick 1.4; Prothrombin Time Fingerstick 15.4 SEC (11.7-14.9)
[2024-01-28 12:07] LABS: INR Fingerstick 1.4; Prothrombin Time Fingerstick 15.4 SEC (11.7-14.9)
== END 2024-01-13 09:07 | disposition home or self-care (01) ==
LOC: EN 06:17 → AC 06:19
PROVIDERS: PCP Family Medicine; Referring Provider Family Medicine; Visit Provider Internal Medicine Gastroenterology
PROC: 0DJ08ZZ Inspection of Upper Intestinal Tract, Via Natural or Artificial Opening Endoscopic (ICD-10-PCS; CPT 43235; principal; 2024-01-13 07:25)
DX: K92.2 Gastrointestinal hemorrhage, unspecified (principal); I11.0 Hypertensive heart disease with heart failure; I50.9 Heart failure, unspecified; J44.9 Chronic obstructive pulmonary disease, unspecified; K31.7 Polyp of stomach and duodenum; I25.10 Atherosclerotic heart disease of native coronary artery without angina pectoris; E78.5 Hyperlipidemia, unspecified
CPT/HCPCS: 43235; 36416; 82962; 85610; A4216; J2405

== ENCOUNTER 2024-02-25 07:06 | Emergency (ER) | payer MEDICARE, OTHER, SELFPAY ==
[2017-11-06 10:25] VITALS: BMI 37.2
[2024-02-25] VITALS (7 sets, daily range): BP systolic 139–165; BP diastolic 76–93; PULSE 79–99; RESP 16–20; TEMP 36.2–36.6; O2SAT 95–100; BMI 41.0
--- NOTE | 2024-02-25 07:32 | RAD_ITS ---
EXAM: XR CHEST, 1 VIEW CLINICAL INDICATION: chest pain TECHNIQUE: Frontal view of the chest. COMPARISON: XR Chest dated 04/18/2023 FINDINGS: LUNGS AND PLEURAL SPACES: Normal. No consolidation or edema. No pneumothorax. No effusion. HEART: Normal heart size. MEDIASTINUM: No mediastinal or hilar mass. BONES/JOINTS: No acute abnormality. TUBES, LINES AND DEVICES: AICD wire remains in place. UPPER ABDOMEN: Elevation of right hemidiaphragm again noted. RAD/Chest 1 View (Portable) IMPRESSION: No acute cardiopulmonary abnormality. No interval change. Electronically Signed: Bob Conrad MD at 8:49 EST ,
[2024-02-25 07:48] LABS: Absolute Neutrophil Count 4.8 X10^3/uL (2.0-7.7); Basophil# 0.04 X10^3/uL; Basophil% 0.6 % (0-1); Eosinophil# 0.18 X10^3/uL; Eosinophils% 2.8 % (0-5); Hematocrit 37.5 % (40-54); Hemoglobin 10.8 g/dL (13.0-16.5); Lymphocyte % 15.3 % (19-41); Mean Corp Hgb Conc 28.8 g/dL (32-36); Mean Corpuscular Hgb 20.5 pg (27.0-32.0); Mean Corpuscular Volume 71.3 fL (80-94); Mean Platelet Vol. 9.3 fl (6.2-12.0); Monocyte# 0.54 X10^3/uL; Monocyte% 8.3 % (0-10); NRBC Flagged by Analyzer 0 % (0-5); Neutrophil # 4.75 X10^3/uL (2.7-7.7); Neutrophil % 72.7 % (47-70); POSITIVE MORPHOLOGY YES; Platelet Count 144 K/mm3 (150-450); RBC Distribution Width CV 20.3 % (11.6-14.6); RBC Distribution Width SD 50.6 fl (35.1-43.9); Red Blood Count 5.26 M/mm3 (4.6-6.2); White Blood Count 6.5 K/mm3 (4.4-11.0)
[2024-02-25 07:53] LABS: Differential Indicated SCAN CRITERIA MET
--- NOTE | 2024-02-25 08:00 | EDS_ITS ---
HPI History of Present Illness Chief Complaint: Chest Pain Informant: patient and family Narrative Narrative: 78-year-old male presenting to the emergency room with a chief complaint of chest pain. Patient states about 90 minutes prior to arrival he developed a s harp aching pain that moves from the right side of his chest to the left and back again. Nothing seems to make it better or worse. He tried nitroglycerin with no success. He states that he has had diarrhea for past couple days he has had a cough for about a week and a half. He denies any recent fever. He states he has been unable to sleep at night recently but does not know why. He has a history of long-term anticoagulant use currently on Coumadin. He has a history of paroxysmal atrial flutter and heart failure has a cardioverter due to nonsustained ventricular tachycardia known coronary artery disease. He denies any nausea or vomiting. Patient sees Dr. Razo for cardiology. Patient underwent a heart catheterization in July 2022. He was noted to have coronary artery disease with occluded right coronary artery with lige-pr-kczof collaterals moderate circumflex disease and moderate LAD disease. It was unchanged from prior heart catheterizations. No interventions were made or planned. [facility] Medical History History of DVT (deep vein thrombosis) History of pacemaker History of CHF (congestive heart failure) Gastritis GI bleed Chest pain Wears dentures Wears glasses Insulin dependent diabetes mellitus Walker as ambulation aid Arthritis History of renal disease High cholesterol Restless legs Back pain TIA (transient ischemic attack) Syncope Difficulty swallowing Gastric reflux Former smoker Shortness of breath on exertion Leg cramps History of edema History of echocardiogram History of stress test Cardiology follow-up encounter History of heart attack History of irregular heartbeat Melena Anticoagulant long-term use Blood in stool Morbid obesity with BMI of 40.0-44.9, adult Uncontrolled type 2 diabetes mellitus COPD exacerbation Anemia Dyspnea on exertion Normocytic anemia HFrEF (heart failure with reduced ejection fraction) Peripheral vascular occlusive disease Dermatitis of lower extremity Ulcer of right lower extremity Essential (primary) hypertension Cellulitis Ulcer of left lower extremity with fat layer exposed 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 Corns and callosities Xerosis cutis Other specified peripheral vascular diseases Other hereditary and idiopathic neuropathies Cellulitis of right leg Ulcer of right lower extremity with fat layer exposed Walking difficulty due to ankle and foot Nondisp fracture of fifth left metatarsal bone with routine healing Localized edema Ulcer of right lower extremity with fat layer exposed Diabetes mellitus type 2 in obese Paroxysmal atrial flutter History of deep vein thrombosis (DVT) of lower extremity Nonsustained ventricular tachycardia Hyperlipidemia History of non-ST elevation myocardial infarction (NSTEMI) (11/05/16) Atherosclerotic heart disease of [place] coronary artery with other forms of angina pectoris Nonrheumatic tricuspid (valve) insufficiency Ischemic cardiomyopathy Home Medications ?Medication ?Instructions ?Recorded ?Last Taken ?Type albuterol sulfate 2.5 mg/3 mL 2.5 mg (3 mL) inhalation Q4H.RT 04/14/22 02/09/23 Rx (0.083 %) solution for nebulization PRN WHEEZING 30 days #360 mL albuterol sulfate 90 mcg/actuation 2 puff inhalation Q6H PRN 04/16/22 02/09/23 Rx aerosol inhaler shortness of breath or wheezing #8.5 grams dapagliflozin propanediol 10 mg 10 mg PO DAILY diabetes 04/18/22 09/23/23 History tablet (Farxiga) nitroglycerin 0.4 mg sublingual 0.4 mg sublingual Q5M PRN Chest 04/21/22 Unknown Rx tablet Pain #25 tabs dulaglutide 3 mg/0.5 mL 3 mg subcut [place] diabetes 05/20/22 01/03/24 History subcutaneous pen injector (Trulicity) nortriptyline 25 mg capsule 25 mg PO QHS 11/24/22 01/12/24 History gabapentin 300 mg capsule 900 mg PO Q8H 02/09/23 01/13/24 History rosuvastatin 40 mg tablet 40 mg PO QHS Cholesterol #90 tabs 03/24/23 09/22/23 Rx insulin glargine-yfgn 100 unit/mL 40 unit subcut BID blood sugar 06/11/23 01/12/24 History (3 mL) subcutaneous pen insulin lispro 100 unit/mL 28 unit subcut TID blood sugar 06/11/23 01/12/24 History subcutaneous pen (Humalog KwikPen (U-100) Insulin) isosorbide mononitrate 60 mg 60 mg PO DAILY #90 tabs 09/02/23 01/13/24 Rx tablet,extended release 24 hr carvedilol 6.25 mg tablet 6.25 mg PO BID #180 tabs 09/07/23 01/13/24 Rx ropinirole 0.5 mg tablet 1 mg (2 x 0.5 mg) PO QHS legs #90 09/07/23 01/12/24 Rx tabs furosemide 80 mg tablet (Lasix) 80 mg PO BID 10/07/23 01/12/24 History latanoprost 0.005 % eye drops 1 drp EACH EYE TID glaucoma 10/07/23 01/12/24 History metolazone 2.5 mg tablet 2.5 mg PO DAILY 10/07/23 01/12/24 History ondansetron 4 mg disintegrating 4 mg PO Q6H PRN nausea and vomiting 10/07/23 Unknown History tablet potassium chloride 20 mEq 20 meq PO TID 10/07/23 01/12/24 History tablet,extended release(part/cryst) (Klor-Con M) pantoprazole 40 mg tablet,delayed 40 mg PO DAILY #30 TABLETS 01/01/24 01/13/24 Rx release ferrous sulfate 325 mg (65 mg 325 mg PO QDAY Fe def anemia #90 02/15/24 Unknown Rx iron) tablet tabs warfarin 6 mg tablet 6 mg PO SUTH 02/15/24 Unknown History warfarin 7.5 mg tablet 7.5 mg PO MOTUWEFRSA 02/15/24 Unknown History Allergy/AdvReac Type Severity Reaction Status Date / Time ceftriaxone sodium (From Allergy Rash Verified 02/25/24 07:07 Rocephin) milk AdvReac Diarrhea Verified 02/25/24 07:07 morphine AdvReac hallucinati Verified 02/25/24 07:07 ons Family History Father , Age 78 Prostate cancer Mother , Age 80 CVA (cerebral vascular accident) Sister Congestive heart failure Diabetes Hypertension Hyperlipidemia Atrial fibrillation CAD (coronary artery disease) Cardiac defibrillator in situ Sister Breast cancer Sister Breast cancer Brother CAD (coronary artery disease) Myocardial infarction Diabetes Brother Diabetes Brother , Age 74 COPD (chronic obstructive pulmonary disease) Sister Alive and well Surgical History History of colonoscopy History of esophagogastroduodenoscopy (EGD) History of implantable cardiac defibrillator (ICD) History of cardiac catheterization History of angioplasty of peripheral vessel History of implantable cardiac defibrillator (ICD) (11/19/17) History of radiofrequency ablation procedure for cardiac arrhythmia (07/01/11) History of electrophysiologic study (11/23/02) History of left heart catheterization (12/06/18) History of coronary artery stent placement (12/15/14) H/O colonoscopy with polypectomy (11/2017) History of detached retina repair ICD (implantable cardioverter-defibrillator) in place Social History household members: spouse housing: house current occupational status: retired pets and animals: Yes (2 dogs, 2 cats) Smoking Status: Former smoker pack-years: 20 how long ago did patient quit smokin years ago alcohol intake: never caffeine: Yes Type: coffee Number of servings: 1 ROS ROS ED Constitutional Constitutional ED: Denies chills, fever(s) or weight loss Eyes Eyes: Denies change in vision or diplopia ENT ENT ED: Denies ear pain, rhinorrhea or sore throat Cardiovascular Cardiovascular: Reports chest pain; Denies orthopnea, palpitations or racing he artbeat Respiratory/Chest Respiratory/Chest: Denies cough, dyspnea or orthopnea Gastrointestinal Gastrointestinal: Reports diarrhea and other Details: increased gas and belching ; Denies abdominal pain, nausea or vomiting Genitourinary Genitourinary ED: Denies dysuria, hematuria or urinary frequency Musculoskeletal Musculoskeletal: Denies arthralgias, back pain or myalgias Integumentary Denies abscess or rash Neurologic Neurologic: Denies headache(s) or weakness Psychiatric Psychiatric: Denies anxiety, depression, suicidal ideation or suicidal thoughts Endocrine Endocrinology: Denies polydipsia, polyphagia or polyuria Allergic/Immunologic Allergic/Immunologic ED: Denies mouth swelling, tongue swelling or urticaria EXAM Physical Exam Const Vital Signs: 02/25/24 07:06 02/25/24 08:06 02/25/24 09:00 Temperature 97.2 F L Temperature Source Temporal Pulse Rate 99 87 79 Respiratory Rate 18 19 H 20 H Blood Pressure 139/91 H 143/92 H 165/76 H Blood Pressure Mean 107 109 105 Pulse Ox 97 99 100 Oxygen Delivery Method Room Air Room Air Room Air 02/25/24 10:00 02/25/24 11:00 02/25/24 12:00 Temperature Temperature Source Pulse Rate 83 85 85 Respiratory Rate 20 H 16 Blood Pressure 147/93 H 143/92 H 147/85 H Blood Pressure Mean 111 109 105 Pulse Ox 97 95 Oxygen Delivery Method Room Air 02/25/24 12:47 Temperature 98 F Temperature Source Pulse Rate 83 Respiratory Rate 18 Blood Pressure 142/87 H Blood Pressure Mean 105 Pulse Ox 99 Oxygen Delivery Method Positive well nourished and well developed General Appearance ED: well developed and NAD HEENT Reports normocephalic, head/scalp atraumatic and moist mucous membranes Eyes PERRL and EOMs intact bilaterally Neck no lymphadenopathy, supple and no JVD Resp normal respiratory effort and clear to auscultation bilaterally Cardio regular rate, regular rhythm and no murmurs GI normal to inspection, nondistended, normoactive bowel sounds and non-tender Palpation: soft Back/Spine no CVA tenderness and normal ROM Extremity Extremity Narrative: chronic venous stasis skin changes General Extremety ED: Yes edema and other findings General Extremity: edema bilateral lower extremity Details: mild and other findings Neuro oriented x3 and CN's II-XII intact bilaterally Sensorium / Orientation: alert Motor Exam: strength 5/5 throughout Psych mental status grossly normal Mood & Affect: Negative for depressed or tearful Skin no rashes or lesions noted and no wounds MDM MDM MDM Narrative Medical decision making narrative: Differential diagnosis includes but not limited to cardiac dysrhythmia pulmonary embolism acute coronary syndrome electrolyte abnormality GERD gastritis Patient's initial EKG is possibly sinus versus fib flutter. I do not see obvious ischemic changes. A follow-up EKG was obtained which shows atrial fibrillation at a rate of 82 with no significant changes in his morphology. White count 6.5 hemoglobin 10.8 platelet count of 144. Initial troponin is 140. A delta troponin is also 140. INR is 3.5. My independent interpretation of the plain film chest x-ray is no acute process. Patient's discomfort went away he had some nausea and received Zofran. He states now he is starting to feel discomfort again midsternal. He was given a GI cocktail. He states that this significantly improved his discomfort. Today is Thanksgiving. In an effort to see if we can keep the gentleman from having to stay in the hospital today third troponin will be ordered. This returned at 146. So essentially his cardiac enzymes are elevated but are flat. He got good improvement with a GI cocktail. Given the location of his pain is lower midsternal I do suspect that this is probably esophageal or gastric in nature. He is on pantoprazole through GI already. Would recommend Tums or Maalox/Pepto- Bismol. Patient and family understand that there is the possibility that this could still be cardiac. They understand that he can return should he worsen develop new symptoms or have concerns. He understands to call cardiology for follow-up. History & Record Review Discussion w/independent historian: Patient and Family Additional record(s) reviewed:: Prior inpatient record, Prior outpatient record, Prior ED visit and Prior labs Lab Data Attestation: I reviewed the patient's lab results. Labs: Laboratory Results - last 24 hr 02/25/24 02/25/24 02/25/24 07:15 09:20 11:18 WBC 6.5 RBC 5.26 Hgb 10.8 L Hct 37.5 L MCV 71.3 L MCH 20.5 L MCHC 28.8 L RDW Std Deviation 50.6 H RDW Coeff of Galo 20.3 H Plt Count 144 L MPV 9.3 Immature Gran % (Auto) 0.300 Neut % (Auto) 72.7 H Lymph % (Auto) 15.3 L Sargent % (Auto) 8.3 Eos % (Auto) 2.8 Baso % (Auto) 0.6 Absolute Neuts (auto) 4.8 Absolute Lymphs (auto) 1.00 Nucleated RBC % 0 Anisocytosis 1+ PT 35.0 H INR 3.5 Sodium 140 Potassium 3.4 L Chloride 108 H Carbon Dioxide 27.0 Anion Gap 5 BUN 15 Creatinine 0.96 Estim Creat Clear Calc 80.75 Est GFR (MDRD) Af Amer 98 Est GFR (MDRD) Non-Af 81 BUN/Creatinine Ratio 15.7 Glucose 174 H Calcium 8.6 Total Bilirubin 0.70 Direct Bilirubin 0.23 AST 37 ALT 24 Alkaline Phosphatase 84 Troponin I High Sens 140 H* 140 H* 146 H* Total Protein 7.0 Albumin 3.5 Globulin 3.5 Lipase 33 Radiography Diagnostic Testing: Clinical Impression(s) from Imaging Studies Chest X-Ray 02/25/24 07:32 IMPRESSION: No acute cardiopulmonary abnormality. No interval change. Electronically Signed: Bob Conrad MD at 8:49 EST , EKG Initial EKG: Attestation: I personally reviewed and interpreted this EKG as follows: Comments: Sinus rhythm ventricular rate of 92 bpm. Prior EKG tracings: available for review Prior: Unchanged Follow-up EKG: Attestation: I personally reviewed and interpreted this EKG as follows: Comments: Atrial fibrillation ventricular rate of 82 bpm Prior EKG tracings: available for review Prior: Unchanged Discharge Plan Triage Chief Complaint: Chest Pain ED Provider: Ramiro Galvan Dx/Rx/DC Orders Clinical Impression: Chest pain Instructions: ED Chest Pain, Uncertain Cause Prescriptions: No Action dapagliflozin propanediol [Farxiga] 10 mg tablet 10 mg PO DAILY furosemide [Lasix] 80 mg tablet 80 mg PO BID insulin lispro [Humalog KwikPen Insulin] 100 unit/mL insulin pen 28 unit subcut TID nortriptyline 25 mg capsule 25 mg PO QHS metolazone 2.5 mg tablet 2.5 mg PO DAILY ondansetron 4 mg tablet,disintegrating 4 mg PO Q6H PRN (Reason: nausea and vomiting) ferrous sulfate 325 mg (65 mg iron) tablet 325 mg PO QDAY Qty: 90 1RF latanoprost 0.005 % drops 1 drp EACH EYE TID albuterol sulfate 2.5 mg /3 mL (0.083 %) Solution For Nebulization 2.5 mg inhalation Q4H.RT PRN (Reason: WHEEZING) 30 Days Qty: 360 0RF albuterol sulfate 90 mcg/actuation HFA aerosol inhaler 2 puff inhalation Q6H PRN (Reason: shortness of breath or wheezing) Qty: 8.5 0RF Trulicity 3 mg/0.5 mL Pen Injector 3 mg SUBCUT [place] insulin glargine-yfgn 100 unit/mL (3 mL) insulin pen 40 unit subcut BID gabapentin 300 mg capsule 900 mg PO Q8H potassium chloride [Klor-Con M20] 20 mEq tablet,ER particles/crystals 20 meq PO TID warfarin 6 mg tablet 6 mg PO SUTH warfarin 7.5 mg tablet 7.5 mg PO MOTUWEFRSA nitroglycerin 0.4 mg tablet, sublingual 0.4 mg SL Q5M PRN (Reason: Chest Pain) Qty: 25 3RF rosuvastatin 40 mg tablet 40 mg PO QHS Qty: 90 3RF isosorbide mononitrate 60 mg tablet extended release 24 hr 60 mg PO DAILY Qty: 90 3RF carvedilol 6.25 mg tablet 6.25 mg PO BID Qty: 180 3RF Rx Instructions: must administer with a meal/food ropinirole 0.5 mg tablet 1 mg PO QHS Qty: 90 3RF pantoprazole 40 mg tablet,delayed release (DR/EC) 40 mg PO DAILY Qty: 30 2RF Primary Care Provider: Tomás Patino Referrals: Johan Perry MD [Med Staff - Active Staff] - As soon as possible (call the office to arrange follow up) Tomás Patino MD [Primary Care Provider] - Activity Restrictions/Additional Instructions: Today and tomorrow you may take some Tums and/or Maalox/Pepto-Bismol. If anything is different worsening or you have concerns please return to emergency especially over the holiday weekend. Print Language: Mauritian Disposition Disposition: Home, Self Care Discharge Date/Time: 02/25/24 12:58
[2024-02-25 08:01] LABS: International Normalized Ratio 3.5
[2024-02-25 08:16] LABS: AST(SGOT) 37 U/L (15-37); Alanine Aminotransfer ALT/SGPT 24 U/L (16-61); Albumin, Serum 3.5 g/dL (3.2-5.0); Alkaline Phosphatase 84 U/L (45-117); Anion Gap 5 (5-15); BUN 15 mg/dL (7-18); BUN/Creat Ratio 15.7 RATIO (10-20); Bilirubin, Direct 0.23 mg/dL (0.00-0.30); Calcium,Total 8.6 mg/dL (8.5-10.1); Chloride 108 mmol/L (98-107); Creatinine, Serum 0.96 mg/dL (0.70-1.30); EST Glomerular Filtration Rate 81 mL/min (>60); Est Glom Filt Rate - Afr Amer 98 mL/min (>60); Estimated Creatinine Clearance 80.75 ml/min; Globulin 3.5 g/dL (2.2-4.2); Glucose 174 mg/dL (74-106); Lipase 33 U/L (13-75); Potassium 3.4 mmol/L (3.5-5.1); Sodium Level 140 mmol/L (136-145); Troponin-I HS (w/2H Reflex) 140 pg/mL (3.0-78.0)
--- NOTE | 2024-02-25 08:16 | ED.RN ---
troponin 140. dr todd
[2024-02-25 08:25] LABS: Anisocytosis 1+
[2024-02-25] MEDS: Ondansetron 4 MG/2 ML Vial IV (09:12)
[2024-02-25 09:43] LABS: Reflex Troponin-HS? (from REC) Y
[2024-02-25 10:16] LABS: Troponin-I HS 140 pg/mL (3.0-78.0)
[2024-02-25] MEDS: Lidocaine 2% Viscous15 ML UDC 15 ML PO (10:32)
[2024-02-25] MEDS: Mag Hydrox/Al Hydrox/Simeth 30 ML UDC PO (10:32)
[2024-02-25 11:59] LABS: Troponin-I HS 146 pg/mL (3.0-78.0)
--- NOTE | 2024-02-25 11:59 | ED.RN ---
[address] QUISPE
== END 2024-02-25 12:58 | disposition home or self-care (01) ==
PROVIDERS: Emergency Provider Emergency Medicine; PCP Family Medicine; Visit Provider Emergency Medicine
DX: R07.9 Chest pain, unspecified (principal); I11.0 Hypertensive heart disease with heart failure; I50.20 Unspecified systolic (congestive) heart failure; J44.9 Chronic obstructive pulmonary disease, unspecified; E11.9 Type 2 diabetes mellitus without complications; Z79.4 Long term (current) use of insulin; I25.10 Atherosclerotic heart disease of native coronary artery without angina pectoris; Z87.891 Personal history of nicotine dependence; E78.00 Pure hypercholesterolemia, unspecified; Z79.01 Long term (current) use of anticoagulants; Z86.73 Personal history of transient ischemic attack (TIA), and cerebral infarction without residual deficits; I25.2 Old myocardial infarction; Z79.84 Long term (current) use of oral hypoglycemic drugs; Z79.85 Long-term (current) use of injectable non-insulin antidiabetic drugs; Z79.899 Other long term (current) drug therapy; G25.81 Restless legs syndrome; Z95.810 Presence of automatic (implantable) cardiac defibrillator; Z95.5 Presence of coronary angioplasty implant and graft; R11.0 Nausea
CPT/HCPCS: 71045; 80048; 80076; 83690; 84484; 85025; 85610; 93005; 96374; 99284; A4216; J2405

== ENCOUNTER → 2024-03-17 | Outpatient (CLI) | payer MEDICARE, OTHER, SELFPAY ==
[2017-11-06 10:25] VITALS: BMI 37.2
[2024-03-17 11:10] LABS: Absolute Lymphocyte Count 1.01 X10^3/uL (0.83-4.51); Absolute Neutrophil Count 6.2 X10^3/uL (2.0-7.7); Basophil# 0.08 X10^3/uL; Eosinophils% 2.4 % (0-5); Hematocrit 42.7 % (40-54); Hemoglobin 12.4 g/dL (13.0-16.5); Lymphocyte # 1.01 X10^3/ul (0.83-4.51); Lymphocyte % 12.3 % (19-41); Mean Corpuscular Hgb 21.5 pg (27.0-32.0); Mean Platelet Vol. 8.7 fl (6.2-12.0); Monocyte# 0.64 X10^3/uL; Monocyte% 7.8 % (0-10); NRBC Flagged by Analyzer 0 % (0-5); Neutrophil # 6.22 X10^3/uL (2.7-7.7); Neutrophil % 76.1 % (47-70); POSITIVE MORPHOLOGY YES; Platelet Count 182 K/mm3 (150-450); RBC Distribution Width CV 22.3 % (11.6-14.6); RBC Distribution Width SD 54.2 fl (35.1-43.9); Red Blood Count 5.77 M/mm3 (4.6-6.2); White Blood Count 8.2 K/mm3 (4.4-11.0)
[2024-03-17 11:12] LABS: Differential Indicated SCAN CRITERIA MET
[2024-03-17 11:41] LABS: Ferritin 19 ng/mL (26-388); Iron 41 ug/dL (65-175); Iron Binding Capacity,Total 470 ug/dL (250-450)
[2024-03-17 11:48] LABS: PSA,Total- Diagnostic 6.38 ng/mL (0.0-4.0)
[2024-03-17 12:21] LABS: Differential Comment SCANNED; Platelet Estimate ADEQUATE (ADEQ)
[2024-03-17 12:22] LABS: Anisocytosis 2+; Macrocytosis 1+; Ovalocyte 2+; Polychromasia 1+; Tear Drop Cell RARE
== END | disposition home or self-care (01) ==
LOC: LAB 10:53
PROVIDERS: Nurse Practitioner Acute Care; PCP Family Medicine; Referring Provider Nurse Practitioner; Visit Provider Nurse Practitioner
DX: R97.20 Elevated prostate specific antigen [PSA] (principal); D64.9 Anemia, unspecified
CPT/HCPCS: 36415; 82728; 83540; 83550; 84153; 85025

== ENCOUNTER → 2024-05-04 | Outpatient (CLI) | payer MEDICARE, OTHER, SELFPAY ==
[2017-11-06 10:25] VITALS: BMI 37.2
[2024-05-04 11:50] LABS: Absolute Lymphocyte Count 1.16 X10^3/uL (0.83-4.51); Absolute Neutrophil Count 5.2 X10^3/uL (2.0-7.7); Basophil# 0.06 X10^3/uL; Basophil% 0.8 % (0-1); Eosinophil# 0.26 X10^3/uL; Eosinophils% 3.5 % (0-5); Hematocrit 47.4 % (40-54); Hemoglobin 14.2 g/dL (13.0-16.5); Lymphocyte # 1.16 X10^3/ul (0.83-4.51); Lymphocyte % 15.7 % (19-41); Mean Corpuscular Hgb 23.8 pg (27.0-32.0); Mean Corpuscular Volume 79.5 fL (80-94); Mean Platelet Vol. 9.6 fl (6.2-12.0); Monocyte# 0.71 X10^3/uL; Monocyte% 9.6 % (0-10); NRBC Flagged by Analyzer 0 % (0-5); Neutrophil # 5.17 X10^3/uL (2.7-7.7); Neutrophil % 70.1 % (47-70); POSITIVE MORPHOLOGY YES; Platelet Count 174 K/mm3 (150-450); RBC Distribution Width CV 20.4 % (11.6-14.6); RBC Distribution Width SD 57.3 fl (35.1-43.9); Red Blood Count 5.96 M/mm3 (4.6-6.2); White Blood Count 7.4 K/mm3 (4.4-11.0)
[2024-05-04 11:56] LABS: Differential Indicated SCAN CRITERIA MET
[2024-05-04 12:11] LABS: BNP,B-Type NATRIURETIC PEPTIDE 56.3 pg/mL (0-100)
[2024-05-04 12:22] LABS: Anion Gap 5 (5-15); BUN 31 mg/dL (7-18); BUN/Creat Ratio 23.1 RATIO (10-20); Calcium,Total 9.5 mg/dL (8.5-10.1); Chloride 99 mmol/L (98-107); Creatinine, Serum 1.34 mg/dL (0.70-1.30); EST Glomerular Filtration Rate 55 mL/min (>60); Est Glom Filt Rate - Afr Amer 66 mL/min (>60); Glucose 114 mg/dL (74-106); Magnesium 2.3 mg/dL (1.6-2.6); Potassium 4.4 mmol/L (3.5-5.1); Sodium Level 137 mmol/L (136-145)
== END | disposition home or self-care (01) ==
PROVIDERS: PCP Family Medicine; Referring Provider Nurse Practitioner Family; Visit Provider Nurse Practitioner Family
DX: R06.02 Shortness of breath (principal); I48.92 Unspecified atrial flutter; I47.20 Ventricular tachycardia, unspecified; R55 Syncope and collapse; R42 Dizziness and giddiness; R53.82 Chronic fatigue, unspecified; Z79.01 Long term (current) use of anticoagulants
CPT/HCPCS: 36415; 80048; 83735; 83880; 84443; 85025

== ENCOUNTER → 2024-05-31 | Outpatient (CLI) | payer MEDICARE, OTHER, SELFPAY ==
[2017-11-06 10:25] VITALS: BMI 37.2
[2024-05-31 08:15] VITALS: PULSE 87; PULSE 91; PULSE 93; PULSE 97; O2SAT 95; O2SAT 97; O2SAT 98
--- NOTE | 2024-05-31 08:31 | CPS ---
Pt arrived to walk on room air. Pt stated he was S.O.B upon arrival and rated it at a 1. Walk was started on room air and pt maintained his saturation 95% and above. At two minutes into walk pt took a break for feeling S.O.B with a rating of 2. Three minutes into walk pt stated he needed to sit down. Pt rated his S.O.B. at a 3. After a few moments of sitting pt started to C/O CP. Pt rated the CP a 5. Pt was taken over to ER when after a few moments of rest his pain had not subsided. Pt did state he does have CP with exertion and this was nothing new.
--- NOTE | 2024-06-03 13:38 | PCM.PSN.6M ---
PSN 6 Minute Walk Test 6 Minute Walk Test 6 Minute Walk Test: 6 Minute Walk Test PSN:6-Minute Walk Test Start: 05/31/24 08:28 Freq: Status: Active Protocol: RESP.6MINW Document 05/31/24 08:15 [facility] (Rec: 05/31/24 08:41 [facility] [id number]) 6 Minute Walk Test Date Performed 05/31/24 Time Performed 08:15 Height 5 ft 8 in Weight: 240 lb Weight in Pounds 240.[address]: Delfina Assistive device Walker used: Pre-test Oxygen Delivery Room Air Method Pulse Ox (%) 95 Pulse Rate (60-100 87 beats/min) Dyspnea Tiffany Scale ( 1 0-10) Exertion Tiffany Scale 6 (6-20) 1st minute Oxygen Delivery Room Air Method Pulse Ox (%) 98 Pulse Rate (60-100 91 beats/min) 2nd minute Oxygen Delivery Room Air Method Pulse Ox (%) 95 Pulse Rate (60-100 93 beats/min) Dyspnea Tiffany Scale ( 2 0-10) Number of Rests 1 Taken Reported Symptoms Increased Work of Breathing 3rd minute Oxygen Delivery Room Air Method Pulse Ox (%) 97 Pulse Rate (60-100 97 beats/min) Dyspnea Tiffany Scale ( 3 0-10) Number of Rests 1 Taken Reported Symptoms Increased Work of Breathing Full Laps Walked 4 Partial Lap, Number 0 of Tiles Walked Total Distance 236 Walked (ft) 05/31/24 08:31 Cardiopulmonary Services by Ana María Wills Pt arrived to walk on room air. Pt stated he was S.O.B upon arrival and rated it at a 1. Walk was started on room air and pt maintained his saturation 95% and above. At two minutes into walk pt took a break for feeling S.O.B with a rating of 2. Three minutes into walk pt stated he needed to sit down. Pt rated his S.O.B. at a 3. After a few moments of sitting pt started to C/O CP. Pt rated the CP a 5. Pt was taken over to ER when after a few moments of rest his pain had not subsided. Pt did state he does have CP with exertion and this was nothing new. Initialized on 05/31/24 08:31 - END OF NOTE Interpretation Interpretation: The patient ambulated 236 feet over the course of 3 minutes beginning on room air with use of a walker. Pretesting oxygen saturation was noted to be 95% on room air. With ambulation, the too oxygen saturation was 95%. The test was terminated at minute 3 due to the development of chest pain. The patient was subsequently taken to the emergency department for evaluation. Recommendations Recommendations: There is no indication for the use of supplemental oxygen at this time. However, the testing was notably limited due to the patient's onset of chest pain. I would recommend that repeat testing be completed at some point in the near future.
== END | disposition home or self-care (01) ==
LOC: PSN 07:56
PROVIDERS: PCP Family Medicine; Referring Provider Nurse Practitioner Acute Care; Visit Provider Nurse Practitioner Acute Care
DX: R06.02 Shortness of breath (principal)
CPT/HCPCS: 94618

== ENCOUNTER → 2024-06-09 | Outpatient (CLI) | payer MEDICARE, OTHER, SELFPAY ==
[2017-11-06 10:25] VITALS: BMI 37.2
[2024-06-09 13:26] LABS: Magnesium 2.2 mg/dL (1.5-2.2)
[2024-06-09 13:50] LABS: Anion Gap 11 (5-15); BUN 22 mg/dL (4-19); BUN/Creat Ratio 20.1 RATIO (10-20); Calcium,Total 8.9 mg/dL (7.6-11.0); Carbon Dioxide 22.8 mmol/L (21.0-32.0); Chloride 104 mmol/L (98-108); Creatinine, Serum 1.11 mg/dL (0.70-1.20); EST Glomerular Filtration Rate 68 (>60); Glucose 194 mg/dL (70-99); Potassium 4.6 mmol/L (3.3-5.1); Sodium Level 138 mmol/L (133-145)
== END | disposition home or self-care (01) ==
LOC: LAB 11:51
PROVIDERS: PCP Family Medicine; Referring Provider Physician Assistant Medical; Visit Provider Physician Assistant Medical
DX: I49.3 Ventricular premature depolarization (principal)
CPT/HCPCS: 36415; 80048; 83735

== ENCOUNTER → 2024-08-04 | Outpatient (CLI) | payer MEDICARE, OTHER, SELFPAY ==
[2017-11-06 10:25] VITALS: BMI 37.2
[2024-08-04 11:15] VITALS: PULSE 55; PULSE 66; PULSE 73; PULSE 75; PULSE 76; PULSE 77; PULSE 81; O2SAT 92; O2SAT 93; O2SAT 94; O2SAT 95; O2SAT 97; O2SAT 98
--- NOTE | 2024-08-05 12:12 | PCM.PSN.6M ---
PSN 6 Minute Walk Test 6 Minute Walk Test 6 Minute Walk Test: 6 Minute Walk Test PSN:6-Minute Walk Test Start: 08/04/24 11:24 Freq: Status: Active Protocol: RESP.6MINW Document 08/04/24 11:15 [facility] (Rec: 08/04/24 11:29 [facility] [id number]) 6 Minute Walk Test Date Performed 08/04/24 Time Performed 11:15 Height 5 ft 8 in Weight: 250 lb Weight in Pounds 250.[address]: Delfina Assistive device Walker used: Pre-test Oxygen Delivery Room Air Method Pulse Ox (%) 95 Pulse Rate (60-100 75 beats/min) Dyspnea Tiffany Scale ( 0.5 0-10) Exertion Tiffany Scale 6 (6-20) 1st minute Oxygen Delivery Room Air Method Pulse Ox (%) 93 Pulse Rate (60-100 81 beats/min) 2nd minute Oxygen Delivery Room Air Method Pulse Ox (%) 92 Pulse Rate (60-100 76 beats/min) 3rd minute Oxygen Delivery Room Air Method Pulse Ox (%) 97 Pulse Rate (60-100 73 beats/min) 4th minute Oxygen Delivery Room Air Method Pulse Ox (%) 94 Pulse Rate (60-100 66 beats/min) 5th minute Oxygen Delivery Room Air Method Pulse Ox (%) 97 Pulse Rate (60-100 66 beats/min) 6th minute Oxygen Delivery Room Air Method Pulse Ox (%) 97 Pulse Rate (60-100 55 L beats/min) Dyspnea Tiffany Scale ( 1 0-10) Exertion Tiffany Scale 13 (6-20) Post-test Oxygen Delivery Room Air Method Pulse Ox (%) 98 Pulse Rate (60-100 77 beats/min) Full Laps Walked 8 Partial Lap, Number 23 of Tiles Walked Total Distance 495 Walked (ft) Interpretation Interpretation: The patient ambulated 495 feet over the course of 6 minutes beginning on room air with use of a walker. Pretesting oxygen saturation was noted to be 95% on room air. With ambulation, the too oxygen saturation was 92%. Although there was evidence of impaired walk distance, there was no significant exertional oxygen desaturation. Recommendations Recommendations: There is no indication for the use of supplemental oxygen at this time.
== END | disposition home or self-care (01) ==
LOC: PSN 11:00
PROVIDERS: PCP Family Medicine; Referring Provider Nurse Practitioner Acute Care; Visit Provider Nurse Practitioner Acute Care
DX: R06.02 Shortness of breath (principal)
CPT/HCPCS: 94618

== ENCOUNTER → 2024-09-28 | Outpatient (CLI) | payer MEDICARE, OTHER, SELFPAY ==
[2017-11-06 10:25] VITALS: BMI 37.2
[2024-09-28 10:31] LABS: Hematocrit 48.9 % (40-54); Hemoglobin 15.4 g/dL (13.0-16.5); Immature Granulocytes Count 0.040 X10^3/uL (0.0-0.0); Mean Corp Hgb Conc 31.5 g/dL (32-36); Mean Corpuscular Volume 81.0 fL (80-94); Mean Platelet Vol. 9.8 fl (6.2-12.0); NRBC Flagged by Analyzer 0 % (0-5); Platelet Count 181 K/mm3 (150-450); RBC Distribution Width CV 16.9 % (11.6-14.6); RBC Distribution Width SD 46.7 fl (35.1-43.9); Red Blood Count 6.04 M/mm3 (4.6-6.2); White Blood Count 6.4 K/mm3 (4.4-11.0)
[2024-09-28 11:17] LABS: Magnesium 2.1 mg/dL (1.5-2.2); Pro- Brain NATRIURETIC PEPTIDE 553 pg/mL (<=1800)
[2024-09-28 11:19] LABS: Anion Gap 11 (5-15); BUN 18 mg/dL (4-19); BUN/Creat Ratio 15.6 RATIO (10-20); Calcium,Total 9.1 mg/dL (7.6-11.0); Carbon Dioxide 27.0 mmol/L (21.0-32.0); Chloride 104 mmol/L (98-108); Glucose 156 mg/dL (70-99); Potassium 3.7 mmol/L (3.3-5.1)
== END | disposition home or self-care (01) ==
LOC: LAB 09:07
PROVIDERS: PCP Family Medicine; Referring Provider Nurse Practitioner Family; Visit Provider Nurse Practitioner Family
DX: R06.00 Dyspnea, unspecified (principal); I49.3 Ventricular premature depolarization; I25.10 Atherosclerotic heart disease of native coronary artery without angina pectoris; I25.5 Ischemic cardiomyopathy; Z95.810 Presence of automatic (implantable) cardiac defibrillator; I10 Essential (primary) hypertension
CPT/HCPCS: 36415; 80048; 83735; 83880; 85025

== ENCOUNTER 2024-10-09 03:24 | Inpatient (IN) | payer MEDICARE, OTHER, SELFPAY ==
[2017-11-06 10:25] VITALS: BMI 37.2
[2024-10-09] VITALS (26 sets, daily range): BP systolic 97–167; BP diastolic 55–106; PULSE 63–97; RESP 16–23; TEMP 2.4–36.8; O2SAT 91–98; BMI 49.1; BMI 37.0
--- NOTE | 2024-10-09 03:53 | EKG12_ITS ---
Test Reason : DYSRHYTHMIA Blood Pressure : */* mmHG Vent. Rate : 70 BPM Atrial Rate : 86 BPM P-R Int : * ms QRS Dur : 170 ms QT Int : 428 ms P-R-T Axes : 52 32 149 degrees QTcB Int : 462 ms Critical Test Result: AV Block Sinus rhythm with 2nd degree A-V block (Mobitz I) with frequent and consecutive Premature ventricular complexes Right bundle branch block Inferior infarct , age undetermined Anterolateral infarct , age undetermined Abnormal ECG Confirmed by CA SIMMONS, ROBERT ([id number]), pictures editor JEREMIAS MARKS ([id number]) on 10/10/2024 11:37:58 AM Referred By: Confirmed By: ROBERT PENALOZA MD
--- NOTE | 2024-10-09 03:55 | RAD_ITS ---
PROCEDURE: CHEST 1 VIEW (PORTABLE) 10/09/2024 REASON FOR EXAM: CHEST PAIN TECHNIQUE: Frontal view of the chest. COMPARISON: 02/25/2024. FINDINGS: Left chest pacemaker. Normal in size. The lungs are clear. RAD/Chest 1 View (Portable) IMPRESSION: No Acute Findings. Reading Location: [place] [id number]
[2024-10-09 04:05] LABS: Hematocrit 46.5 % (40-54); Hemoglobin 15.3 g/dL (13.0-16.5); Immature Granulocytes Count 0.030 X10^3/uL (0.0-0.0); Mean Corp Hgb Conc 32.9 g/dL (32-36); Mean Corpuscular Volume 80.3 fL (80-94); Mean Platelet Vol. 9.5 fl (6.2-12.0); NRBC Flagged by Analyzer 0 % (0-5); Platelet Count 135 K/mm3 (150-450); RBC Distribution Width CV 17.5 % (11.6-14.6); RBC Distribution Width SD 47.4 fl (35.1-43.9); Red Blood Count 5.79 M/mm3 (4.6-6.2); White Blood Count 6.4 K/mm3 (4.4-11.0)
--- NOTE | 2024-10-09 04:40 | EKG12_ITS ---
Test Reason : DYSRHYTHMIA Blood Pressure : */* mmHG Vent. Rate : 76 BPM Atrial Rate : 88 BPM P-R Int : * ms QRS Dur : 160 ms QT Int : 466 ms P-R-T Axes : 51 50 98 degrees QTcB Int : 524 ms Critical Test Result: AV Block Sinus rhythm with 2nd degree A-V block (Mobitz I) with occasional Premature ventricular complexes Right bundle branch block Inferior infarct , age undetermined Anterolateral infarct , age undetermined Abnormal ECG Confirmed by CA SIMMONS, ROBERT ([id number]), managing editor JEREMIAS MARKS ([id number]) on 10/10/2024 11:37:44 AM Referred By: GLENDA Confirmed By: ROBERT PENALOZA MD
--- NOTE | 2024-10-09 04:40 | ED.VIS.CHEST ---
HPI History of Present Illness Chief Complaint: Chest Pain Narrative Narrative: Chief complaint and HPI: Chest pain. 78-year-old male with past medical history of CHF, DM, HLD, CAD, paroxysmal atrial flutter on warfarin, ICD presents for evaluation of chest pain. Patient states at baseline he has bilateral lower extremity edema and exertional dyspnea. He states this evening he began having midsternal chest pain that he describes as sharp. Did not radiate to the back, up the jaw, or down the arm. Pain improving since arrival. He did have a total of 3 nitro and 4 baby aspirin prior to arrival. He denies any fever, chills, URI symptoms, cough, abdominal pain, nausea, vomiting. Review of systems: See HPI Medications: As listed on the chart Allergies: As listed on the chart PFSH: Per chart Vital signs: As listed on the chart. Reviewed. Physical exam: Gen: A&O x3, NAD Head: Normocephalic, atraumatic Eyes: No sclera icterus, conjunctiva clear ENT: Moist mucous membranes Neck: Trachea midline, No JVD CV: RRR, no murmurs, +1 pitting peripheral edema on the right, +2 pitting on the left Resp: Lungs CTA BL, no w/r/c GI: Abd soft, non-distended, non-tender, no r/r/g Musc: Full ROM, no deformity Skin: Warm, dry Neuro: Alert, oriented, grossly intact, sensation intact Psych: Cooperative, appropriate mood and affect [facility] Medical History Iron deficiency anemia due to chronic blood loss History of DVT (deep vein thrombosis) History of pacemaker History of CHF (congestive heart failure) Gastritis GI bleed Chest pain Wears dentures Wears glasses Insulin dependent diabetes mellitus Walker as ambulation aid Arthritis History of renal disease High cholesterol Restless legs Back pain TIA (transient ischemic attack) Syncope Difficulty swallowing Gastric reflux Former smoker Shortness of breath on exertion Leg cramps History of edema History of echocardiogram History of stress test Cardiology follow-up encounter History of heart attack History of irregular heartbeat Melena Anticoagulant long-term use Blood in stool Morbid obesity with BMI of 40.0-44.9, adult Uncontrolled type 2 diabetes mellitus COPD exacerbation Anemia Dyspnea on exertion Normocytic anemia HFrEF (heart failure with reduced ejection fraction) Peripheral vascular occlusive disease Dermatitis of lower extremity Ulcer of right lower extremity Essential (primary) hypertension Cellulitis Ulcer of left lower extremity with fat layer exposed 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 Corns and callosities Xerosis cutis Other specified peripheral vascular diseases Other hereditary and idiopathic neuropathies Cellulitis of right leg Ulcer of right lower extremity with fat layer exposed Walking difficulty due to ankle and foot Nondisp fracture of fifth left metatarsal bone with routine healing Localized edema Ulcer of right lower extremity with fat layer exposed Diabetes mellitus type 2 in obese Paroxysmal atrial flutter History of deep vein thrombosis (DVT) of lower extremity Nonsustained ventricular tachycardia Hyperlipidemia History of non-ST elevation myocardial infarction (NSTEMI) (11/05/16) Atherosclerotic heart disease of [employer] coronary artery with other forms of angina pectoris Nonrheumatic tricuspid (valve) insufficiency Ischemic cardiomyopathy Home Medications ?Medication ?Instructions ?Recorded ?Last Taken ?Type dapagliflozin propanediol 10 mg 10 mg PO DAILY diabetes 04/18/22 09/23/23 History tablet (Farxiga) nitroglycerin 0.4 mg sublingual 0.4 mg sublingual Q5M PRN Chest 04/21/22 Unknown Rx tablet Pain #25 tabs gabapentin 300 mg capsule 900 mg PO Q8H 02/09/23 01/13/24 History latanoprost 0.005 % eye drops 1 drp EACH EYE TID glaucoma 10/07/23 01/12/24 History ondansetron 4 mg disintegrating 4 mg PO Q6H PRN nausea and vomiting 10/07/23 Unknown History tablet potassium chloride 20 mEq 20 meq PO TID 10/07/23 01/12/24 History tablet,extended release(part/cryst) (Klor-Con M) ferrous sulfate 325 mg (65 mg 325 mg PO QDAY Fe def anemia #90 02/15/24 Unknown Rx iron) tablet tabs warfarin 6 mg tablet 6 mg PO SUTH 02/15/24 Unknown History warfarin 7.5 mg tablet 7.5 mg PO MOTUWEFRSA 02/15/24 Unknown History ropinirole 0.5 mg tablet 1 mg (2 x 0.5 mg) PO QHS legs #90 03/03/24 Unknown Rx tabs furosemide 20 mg tablet 40 mg PO BID 03/11/24 Unknown History oxybutynin chloride 10 mg 10 mg PO QDAY 03/11/24 Unknown History tablet,extended release 24 hr tamsulosin 0.4 mg capsule 0.4 mg PO QDAY 03/11/24 Unknown History dulaglutide 3 mg/0.5 mL 4.5 mg subcut [place] diabetes 06/09/24 Unknown History subcutaneous pen injector (Trulicity) nortriptyline 25 mg capsule 25 mg PO QHS 06/09/24 Unknown History metoprolol tartrate 50 mg tablet 50 mg PO BID #60 tabs 06/10/24 Unknown Rx rosuvastatin 40 mg tablet 40 mg PO QHS Cholesterol #90 tabs 06/17/24 Unknown Rx amlodipine 5 mg tablet 5 mg PO QDAY #90 tabs 08/29/24 Unknown Rx pantoprazole 40 mg tablet,delayed 40 mg PO DAILY #30 TABLETS 08/29/24 Unknown Rx release insulin lispro 100 unit/mL 25 unit subcut TID blood sugar 09/28/24 Unknown History subcutaneous pen (Humalog KwikPen (U-100) Insulin) isosorbide mononitrate 60 mg 60 mg PO BID #180 tabs 10/04/24 Unknown Rx tablet,extended release 24 hr albuterol sulfate 90 mcg/actuation 2 inh inhalation Q6H PRN shortness 10/09/24 Unknown History breath activated powder of breath inhaler,sensor insulin glargine-yfgn 100 unit/mL 40 unit subcut BID diabetes 10/09/24 Unknown History (3 mL) subcutaneous pen Allergy/AdvReac Type Severity Reaction Status Date / Time ceftriaxone sodium (From Allergy Rash Verified 10/09/24 03:25 Rocephin) milk AdvReac Diarrhea Verified 10/09/24 03:25 morphine AdvReac hallucinati Verified 10/09/24 03:25 ons Family History Father , Age 78 Prostate cancer Mother , Age 80 CVA (cerebral vascular accident) Sister Congestive heart failure Diabetes Hypertension Hyperlipidemia Atrial fibrillation CAD (coronary artery disease) Cardiac defibrillator in situ Sister Breast cancer Sister Breast cancer Brother CAD (coronary artery disease) Myocardial infarction Diabetes Brother Diabetes Brother , Age 74 COPD (chronic obstructive pulmonary disease) Sister Alive and well Surgical History History of colonoscopy History of esophagogastroduodenoscopy (EGD) History of implantable cardiac defibrillator (ICD) History of cardiac catheterization History of angioplasty of peripheral vessel History of implantable cardiac defibrillator (ICD) (11/19/17) History of radiofrequency ablation procedure for cardiac arrhythmia (07/01/11) History of electrophysiologic study (11/23/02) History of left heart catheterization (12/06/18) History of coronary artery stent placement (12/15/14) H/O colonoscopy with polypectomy (11/2017) History of detached retina repair ICD (implantable cardioverter-defibrillator) in place Social History household members: spouse housing: house current occupational status: retired pets and animals: Yes (2 dogs, 2 cats) Smoking Status: Former smoker pack-years: 20 how long ago did patient quit smokin years ago alcohol intake: never caffeine: Yes Type: coffee Number of servings: 1 EXAM Physical Exam Const Vital Signs: 10/09/24 03:26 10/09/24 03:45 10/09/24 03:54 Temperature 98.2 F Temperature Source Oral Pulse Rate 94 89 Respiratory Rate 18 21 H Blood Pressure 154/106 H 161/89 H Blood Pressure Mean 122 109 Pulse Ox 94 94 Oxygen Delivery Method Room Air Room Air 10/09/24 04:00 10/09/24 04:15 10/09/24 04:30 Temperature Temperature Source Pulse Rate 85 86 82 Respiratory Rate 19 H 19 H 19 H Blood Pressure 152/95 H 141/84 H 155/89 H Blood Pressure Mean 111 98 107 Pulse Ox 98 93 94 Oxygen Delivery Method 10/09/24 04:45 10/09/24 05:00 Temperature Temperature Source Pulse Rate 78 83 Respiratory Rate 23 H 20 H Blood Pressure 145/98 H 141/93 H Blood Pressure Mean 103 109 Pulse Ox 94 96 Oxygen Delivery Method MDM MDM MDM Narrative Medical decision making narrative: 78-year-old male with past medical history of CHF, DM, HLD, CAD, paroxysmal atrial flutter on warfarin, ICD presents for evaluation of chest pain. On chart review, reviewed the cardiology urine note on 09/28/2024. He had a cardiac catheterization from July 2022 showed a chronic total occlusion of his right coronary artery with [id number] collaterals he had moderate disease in the circumflex and LAD distributions and FFR of both the circumflex and LAD were performed and were negative. This was unchanged from previous catheterization. He had a transesophageal echo done in March 2023 that showed an EF of 60%. The note states that if the patient continue to have chest pain, they would consider repeat stress test. I did speak to the patient about this, he states that he has a stress test for October 28. Differential diagnosis includes but is not limited to ACS, pleurisy, pneumonia, PE, electrolyte abnormality, arrhythmia. Patient still having chest pain nitro ordered. Chest pain workup ordered including interrogation of the pacemaker. Pacemaker shows episodes of nonsustained VT. CBC without leukocytosis or anemia. Patient has known thrombocytopenia. INR 3.1. D-dimer 0.58. This is negative for age adjustment. Patient is also on warfarin. BMP relatively unremarkable. Troponin 73. I do not have a previous troponin to compare to. BNP unremarkable. Concern is for NSTEMI especially with changes in rhythm. I spoke with the children's librarian, Dr. Najera. Agrees with heparin and admission to the hospital. I spoke with the hospitalist service who accepted admission. Patient was updated of the results and confirmed understand the plan. EKG: Interpreted by me/EM physician: EKG shows normal sinus rhythm with first-degree AV block and frequent PVCs. He has a known right bundle branch block. Heart rate 88. There is artifact on the EKG therefore this was repeated. Repeat EKGs now show sinus rhythm with possible second-degree AV block with frequent PVCs. Right bundle branch block. Heart rate 70 and 76. Diagnostic: Interpreted by me/EM physician: Chest x-ray without pneumonia, effusion, cardiomegaly, pneumothorax. Radiology in agreement. 30 minutes of critical care time utilized in managing the patient. This is due to high probability of and deterioration of the patient based on the patient's condition and excludes any separately billable procedures. Impression: 1. NSTEMI Lab Data Labs: Laboratory Results - last 24 hr 10/09/24 03:50 WBC 6.4 RBC 5.79 Hgb 15.3 Hct 46.5 MCV 80.3 MCH 26.4 L MCHC 32.9 RDW Std Deviation 47.4 H RDW Coeff of Galo 17.5 H Plt Count 135 L MPV 9.5 Immature Gran % (Auto) 0.500 Neut % (Auto) 71.8 H Lymph % (Auto) 16.7 L Mora % (Auto) 6.6 Eos % (Auto) 3.6 Baso % (Auto) 0.8 Absolute Neuts (auto) 4.6 Absolute Lymphs (auto) 1.07 Nucleated RBC % 0 PT 32.8 H INR 3.1 APTT 40.8 H D-Dimer Quant (PE/DVT) 0.58 H* Sodium 136 Potassium 4.1 Chloride 101 Carbon Dioxide 23.5 Anion Gap 12 BUN 15 Creatinine 0.79 Estim Creat Clear Calc 81.46 Est GFR (MDRD) Non-Af 91 BUN/Creatinine Ratio 19.4 Glucose 218 H Hemoglobin A1c 6.8 H Calcium 8.5 Troponin T High Sens 73 H* NT pro BNP II 1308 TSH 3.330 Radiography Diagnostic Testing: Clinical Impression(s) from Imaging Studies Chest X-Ray 10/09/24 03:55 IMPRESSION: No Acute Findings. Reading Location: [place] [id number] Discharge Plan Disposition Disposition: Acute Care Hospital [facility] Discharge Date/Time: 10/09/24 06:13
[2024-10-09 04:44] LABS: Prothrombin Time (Protime)PT. 32.8 SECONDS (11.7-14.9)
[2024-10-09 04:45] LABS: Partial Thromboplast Time 40.8 Seconds (24.1-36.2)
[2024-10-09 04:55] LABS: Anion Gap 12 (5-15); BUN 15 mg/dL (4-19); BUN/Creat Ratio 19.4 RATIO (10-20); Calcium,Total 8.5 mg/dL (7.6-11.0); Carbon Dioxide 23.5 mmol/L (21.0-32.0); Chloride 101 mmol/L (98-108); Estimated Creatinine Clearance 81.46 ml/min (50-250); Glucose 218 mg/dL (70-99); Potassium 4.1 mmol/L (3.3-5.1); Troponin T High Sensitivity 73 ng/L (<=22)
--- NOTE | 2024-10-09 05:06 | HP.PCM.HOS_ITS ---
HPI - General General Date of Admission: 10/09/24 Date of Service: 10/09/24 Chief Complaint: Chest pain HPI Narrative Tim LONG, is a 78 M who presented to [facility] ED on 10/12/2024 with chest pain. Medical history is significant for history of DVT on Coumadin, paroxysmal A-fib/flutter s/p ablation, CAD without stenting, heart failure with recovered ejection fraction, s/p pacemaker and ICD placement, insulin-dependent type 2 diabetes mellitus, class III obesity with JESSICA and BPH with obstructive symptoms. Follows with outpatient cardiology and pulmonology. He saw cardiology in the office on 09/28. Last heart cath in July 2022 showed a chronically totally occluded RCA with moderate disease in the LAD and left circumflex. Patient did report having intermittent chest pain at that visit and his isosorbide mononitrate was increased to 60 mg twice daily. Stress test was also ordered for October 28. He saw pulmonology in the office on 10/06. He noted shortness of breath with minimal exertion. Exertional hypoxia was ruled out in the office. They thought this was multifactorial secondary to deconditioning and body habitus. Patient now presents today with sharp midsternal chest pain that began earlier this evening. Pain does not radiate. Was given a total of 3 nitro and 4 baby aspirin with some improvement in the pain. In the ED he was hypertensive to the 160s systolic but otherwise in normal sinus rhythm and stable on room air at rest. CBC and BMP were benign. INR 3.1. BNP normal at 1308. Initial troponin was elevated at 73, repeat pending. Notably patient has had chronically elevated troponins in the past. Initial EKG showed first-degree block with frequent PACs and PVCs. Repeat EKG however appeared to show Mobitz type I heart block. No new ST changes were noted. Case was discussed with cardiology who recommended initiation of heparin drip for suspected NSTEMI. Hospitalist was then contacted for admission. I saw the patient at bedside in the ED. Patient was mildly fatigued appearing but otherwise sitting back comfortably in bed, conversing normally, in no acute distress. He noted that the chest pain was starting to return again but was still much improved from earlier this evening. He denied any shortness of breath at rest. Does report some left lower extremity swelling worse than his normal. No other acute concerns currently. Will be admitted for further management. PFSH Medical History (Reviewed 10/06/24 @ 09:32 by Lillian Caruso [employer] TECHNICAL MANAGER, [employer] TE[employer]NAGER-C) Iron deficiency anemia due to chronic blood loss History of DVT (deep vein thrombosis) History of pacemaker History of CHF (congestive heart failure) Gastritis GI bleed Chest pain Wears dentures Wears glasses Insulin dependent diabetes mellitus Walker as ambulation aid Arthritis History of renal disease High cholesterol Restless legs Back pain TIA (transient ischemic attack) Syncope Difficulty swallowing Gastric reflux Former smoker Shortness of breath on exertion Leg cramps History of edema History of echocardiogram History of stress test Cardiology follow-up encounter History of heart attack History of irregular heartbeat Melena Anticoagulant long-term use Blood in stool Morbid obesity with BMI of 40.0-44.9, adult Uncontrolled type 2 diabetes mellitus COPD exacerbation Anemia Dyspnea on exertion Normocytic anemia HFrEF (heart failure with reduced ejection fraction) Peripheral vascular occlusive disease Dermatitis of lower extremity Ulcer of right lower extremity Essential (primary) hypertension Cellulitis Ulcer of left lower extremity with fat layer exposed 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 Corns and callosities Xerosis cutis Other specified peripheral vascular diseases Other hereditary and idiopathic neuropathies Cellulitis of right leg Ulcer of right lower extremity with fat layer exposed Walking difficulty due to ankle and foot Nondisp fracture of fifth left metatarsal bone with routine healing Localized edema Ulcer of right lower extremity with fat layer exposed Diabetes mellitus type 2 in obese Paroxysmal atrial flutter History of deep vein thrombosis (DVT) of lower extremity Nonsustained ventricular tachycardia Hyperlipidemia History of non-ST elevation myocardial infarction (NSTEMI) (11/05/16) Atherosclerotic heart disease of [place] coronary artery with other forms of angina pectoris Nonrheumatic tricuspid (valve) insufficiency Ischemic cardiomyopathy Home Medications ?Medication ?Instructions ?Recorded ?Last Taken ?Type dapagliflozin propanediol 10 mg 10 mg PO DAILY diabete s 04/18/22 09/23/23 History tablet (Farxiga) nitroglycerin 0.4 mg sublingual 0.4 mg sublingual Q5M PRN Chest 04/21/22 Unknown Rx tablet Pain #25 tabs gabapentin 300 mg capsule 900 mg PO Q8H 02/09/2301/12 History latanoprost 0.005 % eye drops 1 drp EACH EYE TID glauc juan jose 10/07/23 01/12/24 History ondansetron 4 mg disintegrating 4 mg PO Q6H PRN nausea and vomiting 10/07/23 Unknown History tablet potassium chloride 20 mEq 20 meq PO TID 10/07/2301/11 History tablet,extended release(part/cryst) (Klor-Con M) ferrous sulfate 325 mg (65 mg 325 mg PO QDAY Fe def an emia #90 02/15/24 Unknown Rx iron) tablet tabs warfarin 6 mg tablet 6 mg PO SUTH 02/15/24 Unknow n History warfarin 7.5 mg tablet 7.5 mg PO MOTUWEFRSA 4 Unknown History ropinirole 0.5 mg tablet 1 mg (2 x 0.5 mg) PO QHS leg s #90 03/03/24 Unknown Rx tabs furosemide 20 mg tablet 40 mg PO BID 03/11/24 Unknow n History oxybutynin chloride 10 mg 10 mg PO QDAY 03/11/24 Unkno wn History tablet,extended release 24 hr tamsulosin 0.4 mg capsule 0.4 mg PO QDAY 03/11/24 Unkn own History dulaglutide 3 mg/0.5 mL 4.5 mg subcut [place] diabetes Unknown History subcutaneous pen injector (Trulicity) nortriptyline 25 mg capsule 25 mg PO QHS 06/09/24 Unkn own History metoprolol tartrate 50 mg tablet 50 mg PO BID #60 tabs 06/10/24 Unknown Rx rosuvastatin 40 mg tablet 40 mg PO QHS Cholesterol #90 tabs 06/17/24 Unknown Rx amlodipine 5 mg tablet 5 mg PO QDAY #90 tabs Unknown Rx pantoprazole 40 mg tablet,delayed 40 mg PO DAILY #30 T ABLETS 08/29/24 Unknown Rx release insulin lispro 100 unit/mL 25 unit subcut TID blood de la rosa gar 09/28/24 Unknown History subcutaneous pen (Humalog KwikPen (U-100) Insulin) isosorbide mononitrate 60 mg 60 mg PO BID #180 tabs Unknown Rx tablet,extended release 24 hr albuterol sulfate 90 mcg/actuation 2 inh inhalation Q6 H PRN shortness 10/09/24 Unknown History breath activated powder of breath inhaler,sensor insulin glargine-yfgn 100 unit/mL 48 unit subcut BID 0 10/09/24 Unknown History (3 mL) subcutaneous pen insulin lispro 100 unit/mL 30 unit subcut TID 10/09/24 Unknown History subcutaneous half-unit pen (Humalog Arjun Napoleon (U-100)) Allergy/AdvReac Type Severity Reaction Status Date / Time ceftriaxone sodium (From Allergy Rash Verified 10/09/24 03:25 Rocephin) milk AdvReac Diarrhea Verified 10/09/24 03:25 morphine AdvReac hallucinati Verified 10/09/24 03:25 ons Family History (Reviewed 10/06/24 @ 09:32 by Lillian Caruso [employer] TECHNICAL MANAGER, [employer]GER-C) Father , Age 78 Prostate cancer Mother , Age 80 CVA (cerebral vascular accident) Sister Congestive heart failure Diabetes Hypertension Hyperlipidemia Atrial fibrillation CAD (coronary artery disease) Cardiac defibrillator in situ Sister Breast cancer Sister Breast cancer Brother CAD (coronary artery disease) Myocardial infarction Diabetes Brother Diabetes Brother , Age 74 COPD (chronic obstructive pulmonary disease) Sister Alive and well Surgical History (Reviewed 10/06/24 @ 09:32 by Lillian Caruso [employer] TECHNICAL MANAGER, [employer] TECHN[employer] MANAGER-C) History of colonoscopy History of esophagogastroduodenoscopy (EGD) History of implantable cardiac defibrillator (ICD) History of cardiac catheterization History of angioplasty of peripheral vessel History of implantable cardiac defibrillator (ICD) (11/19/17) History of radiofrequency ablation procedure for cardiac arrhythmia (07/01/11) History of electrophysiologic study (11/23/02) History of left heart catheterization (12/06/18) History of coronary artery stent placement (12/15/14) H/O colonoscopy with polypectomy (11/2017) History of detached retina repair ICD (implantable cardioverter-defibrillator) in place Social History (Reviewed 10/06/24 @ 09:32 by Lillian Caruso [employer] TECHNICAL MANAGER, [employer] TECH[employer] MANAGER-C) household members: spouse housing: house current occupational status: retired pets and animals: Yes (2 dogs, 2 cats) Smoking Status: Former smoker pack-years: 20 how long ago did patient quit smokin years ago alcohol intake: never caffeine: Yes Type: coffee Number of servings: 1 ROS Constitutional Constitutional: Reports fatigue; Denies chills, fever(s) or weakness Eyes Eyes: Denies change in vision Cardiovascular Cardiovascular: Reports chest pain, dyspnea on exertion and edema; Denies lightheadedness or palpitations Respiratory/Chest Respiratory/Chest: Reports shortness of breath with exertion; Denies shortness of breath at rest or wheezing Gastrointestinal Gastrointestinal: Denies abdominal pain Musculoskeletal Musculoskeletal: Denies arthralgias or myalgias Vital Signs Vital Signs Vital Signs: 10/09/24 03:26 10/09/24 03:45 10/09/24 03:54 Temperature 98.2 F Temperature Source Oral Pulse Rate 94 89 Respiratory Rate 18 21 H Blood Pressure 154/106 H 161/89 H Blood Pressure Mean 122 109 Pulse Ox 94 94 Oxygen Delivery Method Room Air Room Air 10/09/24 04:00 10/09/24 04:15 10/09/24 04:30 Temperature Temperature Source Pulse Rate 85 86 82 Respiratory Rate 19 H 19 H 19 H Blood Pressure 152/95 H 141/84 H 155/89 H Blood Pressure Mean 111 98 107 Pulse Ox 98 93 94 Oxygen Delivery Method Weight Weight: 114.2 kg Body Mass Index (BMI) 49.1 Physical Exam Const alert, oriented x3 and no apparent distress Constitutional Narrative: Elderly male, class III obesity, fatigued appearing but otherwise sitting back fairly comfortably in bed, conversing normally, in no acute distress. General Appearance: cooperative and comfortable HEENT normocephalic, head/scalp atraumatic, hearing grossly normal bilaterally, nasal mucous membranes and turbinates normal and moist oral mucous membranes Eyes PERRL, EOMs intact bilaterally and conjunctivae normal Neck full ROM Chest inspection of chest normal Resp normal respiratory effort and no use of accessory muscles Resp Narrative: Breathing comfortably on room air at rest. Mild crackles noted in bilateral lung bases but otherwise good air movement throughout with no wheezing noted. Cardio regular rate, regular rhythm, no murmurs and peripheral pulses 2+ throughout GI normal to inspection, nondistended, normoactive bowel sounds, soft to palpation, non-tender and non-distended Back/Spine normal ROM Extremity full ROM Extremity Narrative: Chronic venous stasis changes noted with trace lower extremity edema bilaterally. Skin no rashes or lesions noted Psych mental status grossly normal Mood & Affect: anxious Results Lab / Micro Data 10/09/24 03:50 10/09/24 03:50 Labs: Laboratory Results - last 24 hr 10/09/24 03:50: WBC 6.4, RBC 5.79, Hgb 15.3, Hct 46.5, MCV 80.3, MCH 26.4 L, MCHC 32.9, RDW Std Deviation 47.4 H, RDW Coeff of Galo 17.5 H, Plt Count 135 L, MPV 9.5, Immature Gran % (Auto) 0.500, Neut % (Auto) 71.8 H, Lymph % (Auto) 16.7 L, Lassen % (Auto) 6.6, Eos % (Auto) 3.6, Baso % (Auto) 0.8, Absolute Neuts (auto) 4.6, Absolute Lymphs (auto) 1.07, Nucleated RBC % 0, Sodium 136, Potassium 4.1, Chloride 101, Carbon Dioxide 23.5, Anion Gap 12, BUN 15, Creatinine 0.79, Estim Creat Clear Calc 81.46, Est GFR (MDRD) Non-Af 91, BUN/Creatinine Ratio 19.4, G lucose 218 H, Calcium 8.5, Troponin T High Sens 73 H* Imaging Radiology Impression Chest X-Ray 10/09/24 03:55 IMPRESSION: No Acute Findings. Reading Location: [id number] Assessment & Plan Assessment/Plan (1) NSTEMI, initial episode of care: PLAN: Plan Patient is a 78-year-old male who presented to [facility] ED on 10/09/2024 with chest pain. 1. NSTEMI ? Admit under inpatient status to PCU. Cardiology consulted. Patient with significant cardiac history as below. Presented with midsternal chest pain and shortness of breath with exertion. Initial troponin 73, repeat pending; notably does have chronically elevated troponins on chart review. Initial EKG with sinus rhythm with first-degree heart block and frequent PACs and PVCs. Repeat EKG with Mobitz type I heart block. No ST changes noted on either EKG. Given concern for NSTEMI, will treatment heparin drip. Will keep n.p.o. for possible left heart cath today. Lipid panel, A1c and TSH ordered. Hypertensive to the 150s systolic on admit. Will continue home amlodipine, nitrate, and Lopressor for now. Hold home Lasix. Continue home high-intensity statin. 2. History of CAD with chronically occluded RCA, chronic heart failure with recovered ejection fraction s/p pacemaker and ICD placement, paroxysmal A- fib/flutter s/p ablation on Coumadin, history of DVT, hypertension, hyperlipidemia ? Follows with outpatient cardiology. Last office visit on 09/28, see HPI for further details. In short, last left heart cath in July 2022 showed chronically occluded RCA with moderate disease in the LAD and left circumflex. Last echo in showed recovered EF of 60%. In normal sinus rhythm on admit. Treatment as above. Chronic medical conditions: ? Class III obesity with JESSICA: Follows with outpatient pulmonology. BMI 49 on admit. Complicates hospital course, care and prognosis. Continue PAP therapy at night. ? Type 2 diabetes mellitus with diabetic neuropathy: Will treat with reduced doses of Lantus 40 units twice daily and Humalog 15 units plus sliding scale with meals, adjust as needed. Continue home gabapentin. ? BPH with obstructive symptoms: Continue home Flomax. ? Restless leg syndrome: Continue home ropinirole. ? Overactive bladder: Continue home oxybutynin. ? GERD: Continue home PPI. DVT prophylaxis: Not indicated, on heparin drip CODE STATUS: Full code, verified Expected disposition: TBD Total clinical time spent by myself addressing the patient's medical issues, reviewing all the data, and collaborating with patient's care team: 75 minutes. Charges/Coding Visit Charges Inpatient E&M: 24820 Init Hosp L3
[2024-10-09 05:17] LABS: Pro- Brain NATRIURETIC PEPTIDE 1308 pg/mL (<=1800)
[2024-10-09 05:23] LABS: D-Dimer Quantitative (DVT/PE) 0.58 FEU/ug/m (0.27-0.49)
[2024-10-09] MEDS: HEPARIN/D5w 25,000 UNITS 25,000 UNITS/250 ML IV.SOLN. 10 UNITS CONT INF (05:41)
[2024-10-09] MEDS: Nitroglycerin SL (ED/IMG/CATH) 0.4 MG TABLET SL (05:41)
--- NOTE | 2024-10-09 05:45 | ED.RN ---
prior to starting Heparin drip clarified with Nerissa Pharmacist if ok to start with inr 3.1, Ptt 40.8,Pt 32.8. She stated it was fine.
[2024-10-09 06:48] LABS: Troponin T High Sens 2 HR 88 ng/L (<=22)
--- NOTE | 2024-10-09 07:44 | NURSING ---
Attempted to contact pt daughterGenesis at this time per pt request. No answer.
[2024-10-09 08:53] LABS: Troponin T High Sens 4 HR 86 ng/L (<=22)
[2024-10-09] MEDS: 0.9% Saline Lock 10 ML Syringe IV ×2 (09:04→21:42)
--- NOTE | 2024-10-09 11:40 | PCM.CONS.C ---
Assessment & Plan Assessment/Plan (1) NSTEMI, initial episode of care: PLAN: Continue with aspirin 81 mg daily. Discontinue heparin given his therapeutic INR. Hold off warfarin. If he keeps having refractory chest pain, we will take him to the Bioge[facility] today via radial approach. continue with Toprol tartrate 50 mg twice daily Continue with atorvastatin 80 mg daily. Continue with isosorbide 60 mg twice daily (2) ICD (implantable cardioverter-defibrillator) in place: PLAN: Pacemaker interrogation. 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 Patient did report having intermittent chest pain at that visit and his isosorbide mononitrate was increased to 60 mg twice daily. Patient with sharp midsternal chest pain that began earlier yesterday. Pain does not radiate. Was given a total of 3 nitro and 4 baby aspirin with some improvement in the pain. In the ED he was hypertensive to the 160s systolic but otherwise in normal sinus rhythm and stable on room air at rest. EKG with Mobitz type I heart block. He has been having chest pain on exertion. His chest pain has been getting worsening. He has been having shortness of breath. FORMERLY [facility], [facility] Medical History Iron deficiency anemia due to chronic blood loss History of DVT (deep vein thrombosis) History of pacemaker History of CHF (congestive heart failure) Gastritis GI bleed Chest pain Wears dentures Wears glasses Insulin dependent diabetes mellitus Walker as ambulation aid Arthritis History of renal disease High cholesterol Restless legs Back pain TIA (transient ischemic attack) Syncope Difficulty swallowing Gastric reflux Former smoker Shortness of breath on exertion Leg cramps History of edema History of echocardiogram History of stress test Cardiology follow-up encounter History of heart attack History of irregular heartbeat Melena Anticoagulant long-term use Blood in stool Morbid obesity with BMI of 40.0-44.9, adult Uncontrolled type 2 diabetes mellitus COPD exacerbation Anemia Dyspnea on exertion Normocytic anemia HFrEF (heart failure with reduced ejection fraction) Peripheral vascular occlusive disease Dermatitis of lower extremity Ulcer of right lower extremity Essential (primary) hypertension Cellulitis Ulcer of left lower extremity with fat layer exposed 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 Corns and callosities Xerosis cutis Other specified peripheral vascular diseases Other hereditary and idiopathic neuropathies Cellulitis of right leg Ulcer of right lower extremity with fat layer exposed Walking difficulty due to ankle and foot Nondisp fracture of fifth left metatarsal bone with routine healing Localized edema Ulcer of right lower extremity with fat layer exposed Diabetes mellitus type 2 in obese Paroxysmal atrial flutter History of deep vein thrombosis (DVT) of lower extremity Nonsustained ventricular tachycardia Hyperlipidemia History of non-ST elevation myocardial infarction (NSTEMI) (11/05/16) Atherosclerotic heart disease of [place] coronary artery with other forms of angina pectoris Nonrheumatic tricuspid (valve) insufficiency Ischemic cardiomyopathy Home Medications ?Medication ?Instructions ?Recorded ?Last Taken ?Type dapagliflozin propanediol 10 mg 10 mg PO DAILY diabetes 04/18/22 09/23/23 History tablet (Farxiga) nitroglycerin 0.4 mg sublingual 0.4 mg sublingual Q5M PRN Chest 04/21/22 Unknown Rx tablet Pain #25 tabs gabapentin 300 mg capsule 900 mg PO Q8H 02/09/23 01/13/24 History latanoprost 0.005 % eye drops 1 drp EACH EYE TID glaucoma 10/07/23 01/12/24 History ondansetron 4 mg disintegrating 4 mg PO Q6H PRN nausea and vomiting 10/07/23 Unknown History tablet potassium chloride 20 mEq 20 meq PO TID 10/07/23 01/12/24 History tablet,extended release(part/cryst) (Klor-Con M) ferrous sulfate 325 mg (65 mg 325 mg PO QDAY Fe def anemia #90 02/15/24 Unknown Rx iron) tablet tabs warfarin 6 mg tablet 6 mg PO SUTH 02/15/24 Unknown History warfarin 7.5 mg tablet 7.5 mg PO MOTUWEFRSA 02/15/24 Unknown History ropinirole 0.5 mg tablet 1 mg (2 x 0.5 mg) PO QHS legs #90 03/03/24 Unknown Rx tabs furosemide 20 mg tablet 40 mg PO BID 03/11/24 Unknown History oxybutynin chloride 10 mg 10 mg PO QDAY 03/11/24 Unknown History tablet,extended release 24 hr tamsulosin 0.4 mg capsule 0.4 mg PO QDAY 03/11/24 Unknown History dulaglutide 3 mg/0.5 mL 4.5 mg subcut [place] diabetes 06/09/24 Unknown History subcutaneous pen injector (Trulicity) nortriptyline 25 mg capsule 25 mg PO QHS 06/09/24 Unknown History metoprolol tartrate 50 mg tablet 50 mg PO BID #60 tabs 06/10/24 Unknown Rx rosuvastatin 40 mg tablet 40 mg PO QHS Cholesterol #90 tabs 06/17/24 Unknown Rx amlodipine 5 mg tablet 5 mg PO QDAY #90 tabs 08/29/24 Unknown Rx pantoprazole 40 mg tablet,delayed 40 mg PO DAILY #30 TABLETS 08/29/24 Unknown Rx release insulin lispro 100 unit/mL 25 unit subcut TID blood sugar 09/28/24 Unknown History subcutaneous pen (Humalog KwikPen (U-100) Insulin) isosorbide mononitrate 60 mg 60 mg PO BID #180 tabs 10/04/24 Unknown Rx tablet,extended release 24 hr albuterol sulfate 90 mcg/actuation 2 inh inhalation Q6H PRN shortness 10/09/24 Unknown History breath activated powder of breath inhaler,sensor insulin glargine-yfgn 100 unit/mL 40 unit subcut BID diabetes 10/09/24 Unknown History (3 mL) subcutaneous pen Allergy/AdvReac Type Severity Reaction Status Date / Time ceftriaxone sodium (From Allergy Rash Verified 10/09/24 03:25 Rocephin) milk AdvReac Diarrhea Verified 10/09/24 03:25 morphine AdvReac hallucinati Verified 10/09/24 03:25 ons Family History Father , Age 78 Prostate cancer Mother , Age 80 CVA (cerebral vascular accident) Sister Congestive heart failure Diabetes Hypertension Hyperlipidemia Atrial fibrillation CAD (coronary artery disease) Cardiac defibrillator in situ Sister Breast cancer Sister Breast cancer Brother CAD (coronary artery disease) Myocardial infarction Diabetes Brother Diabetes Brother , Age 74 COPD (chronic obstructive pulmonary disease) Sister Alive and well Surgical History History of colonoscopy History of esophagogastroduodenoscopy (EGD) History of implantable cardiac defibrillator (ICD) History of cardiac catheterization History of angioplasty of peripheral vessel History of implantable cardiac defibrillator (ICD) (11/19/17) History of radiofrequency ablation procedure for cardiac arrhythmia (07/01/11) History of electrophysiologic study (11/23/02) History of left heart catheterization (12/06/18) History of coronary artery stent placement (12/15/14) H/O colonoscopy with polypectomy (11/2017) History of detached retina repair ICD (implantable cardioverter-defibrillator) in place Social History household members: spouse housing: house current occupational status: retired pets and animals: Yes (2 dogs, 2 cats) Smoking Status: Former smoker pack-years: 20 how long ago did patient quit smokin years ago alcohol intake: never caffeine: Yes Type: coffee Number of servings: 1 Risk Stratification Risk Stratification Applicable: Yes Age >/= 65: Yes >/= 3 CAD Risk Factors (HTN, HLD, DM, family hx of CAD, or current smoker): Yes Aspirin Use in the Past 7 Days: Yes Severe Angina (>/= episodes in 24 hours): Yes EKG ST Changes >/= 0.5mm: Yes Positive Cardiac Marker: Yes MICAH Risk Stratification Score: 6 MICAH % Risk: 41% Risk Objective Data Vital Signs: Vital Signs Temp Pulse Resp BP Pulse Ox O2 Del Method 97.9 F 85 18 144/89 H 91 Room Air 10/09/24 07:53 10/09/24 09:04 10/09/24 07:53 10/09/24 07:53 10/09/24 07:53 10/09/24 08:12 Oxygen Delivery Method Room Air Weight: 243 lb 9.773 oz Body Mass Index (BMI) 37.0 Lab / Micro Data 10/09/24 03:50 10/09/24 03:50 Labs: Laboratory Results - last 24 hr 10/09/24 03:50: WBC 6.4, RBC 5.79, Hgb 15.3, Hct 46.5, MCV 80.3, MCH 26.4 L, MCHC 32.9, RDW Std Deviation 47.4 H, RDW Coeff of Galo 17.5 H, Plt Count 135 L, MPV 9.5, Immature Gran % (Auto) 0.500, Neut % (Auto) 71.8 H, Lymph % (Auto) 16.7 L, Wallace % (Auto) 6.6, Eos % (Auto) 3.6, Baso % (Auto) 0.8, Absolute Neuts (auto) 4.6, Absolute Lymphs (auto) 1.07, Nucleated RBC % 0, PT 32.8 H, INR 3.1, APTT 40.8 H, D-Dimer Quant (PE/DVT) 0.58 H*, Sodium 136, Potassium 4.1, Chloride 101, Carbon Dioxide 23.5, Anion Gap 12, BUN 15, Creatinine 0.79, Estim Creat Clear Calc 81.46, Est GFR (MDRD) Non-Af 91, BUN/Creatinine Ratio 19.4, Glucose 218 H, Hemoglobin A1c 6.8 H, Calcium 8.5, Troponin T High Sens 73 H*, NT pro BNP II 1308, TSH 3.330 10/09/24 05:48: Troponin T Hi Sens 2 Hr 88 H* 10/09/24 07:46: Troponin T Hi Sens 4Hr 86 H* Rhythm Strip Rhythm Strip: Sinus Rhythm Cardiology Labs/Tests 10/09/24 03:50: WBC 6.4, RBC 5.79, Hgb 15.3, Hct 46.5, MCV 80.3, MCH 26.4 L, MCHC 32.9, Plt Count 135 L, MPV 9.5, Immature Gran % (Auto) 0.500, Neut % (Auto) 71.8 H, Lymph % (Auto) 16.7 L, Wallace % (Auto) 6.6, Eos % (Auto) 3.6, Baso % (Auto) 0.8, Absolute Neuts (auto) 4.6, Nucleated RBC % 0, PT 32.8 H, INR 3.1, APTT 40.8 H, D-Dimer Quant (PE/DVT) 0.58 H*, Sodium 136, Potassium 4.1, Chloride 101, Carbon Dioxide 23.5, Anion Gap 12, BUN 15, Creatinine 0.79, Est GFR (MDRD) Non-Af 91, BUN/Creatinine Ratio 19.4, Glucose 218 H, Hemoglobin A1c 6.8 H, Calcium 8.5 Radiography Diagnostic Testing: Radiology Impression Chest X-Ray 10/09/24 03:55 IMPRESSION: No Acute Findings. Reading Location: [place] [id number]
[2024-10-09 12:06] LABS: Partial Thromboplast Time 65.7 Seconds (24.1-36.2)
--- NOTE | 2024-10-09 14:45 | PCM.PN.HOSP ---
Reason for Visit Chief Complaint: Chest pain Subjective Subjective Patient was seen and examined today, he underwent a cardiac catheterization today, it showed occlusive coronary disease past the stent in his obtuse marginal branch, this was ballooned, a stent was not inserted however. I talked to cardiology and they stated that the ballooning should take care of the problem. Patient will return to his room on PCU and be reevaluated in the morning for possible discharge. The director weights and measures would like the patient on Plavix and Coumadin due to the fact he was taking Coumadin on admission. The director weights and measures has opted not to place him on triple therapy. Objective Data Objective Data Vital Signs: Vital Signs Temp Pulse Resp BP Pulse Ox O2 Del Method 97.9 F 85 18 144/89 H 95 Room Air 10/09/24 07:53 10/09/24 09:04 10/09/24 07:53 10/09/24 07:53 10/09/24 13:10 10/09/24 13:10 Oxygen Delivery Method Room Air Weight: 110.5 kg Body Mass Index (BMI) 37.0 Intake & Output: Intake and Output for Last 24 Hours 10/07/24 10/08/24 10/09/24 23:59 23:59 23:59 Intake Total Balance Lab / Micro Data 10/09/24 03:50 10/09/24 03:50 Labs: Laboratory Results - last 24 hr 10/09/24 03:50: WBC 6.4, RBC 5.79, Hgb 15.3, Hct 46.5, MCV 80.3, MCH 26.4 L, MCHC 32.9, RDW Std Deviation 47.4 H, RDW Coeff of Galo 17.5 H, Plt Count 135 L, MPV 9.5, Immature Gran % (Auto) 0.500, Neut % (Auto) 71.8 H, Lymph % (Auto) 16.7 L, Harney % (Auto) 6.6, Eos % (Auto) 3.6, Baso % (Auto) 0.8, Absolute Neuts (auto) 4.6, Absolute Lymphs (auto) 1.07, Nucleated RBC % 0, PT 32.8 H, INR 3.1, APTT 40.8 H, D-Dimer Quant (PE/DVT) 0.58 H*, Sodium 136, Potassium 4.1, Chloride 101, Carbon Dioxide 23.5, Anion Gap 12, BUN 15, Creatinine 0.79, Estim Creat Clear Calc 81.46, Est GFR (MDRD) Non-Af 91, BUN/Creatinine Ratio 19.4, Glucose 218 H, Hemoglobin A1c 6.8 H, Calcium 8.5, Troponin T High Sens 73 H*, NT pro BNP II 1308, TSH 3.330 10/09/24 05:48: Troponin T Hi Sens 2 Hr 88 H* 10/09/24 07:46: Troponin T Hi Sens 4Hr 86 H* 10/09/24 11:42: APTT 65.7 H 10/09/24 13:08: POC Glucose 126 H Radiography Diagnostic Testing: Radiology Impression Chest X-Ray 10/09/24 03:55 IMPRESSION: No Acute Findings. Reading Location: [place] [address] Rhythm Strip Rhythm Strip: Sinus Rhythm Physical Exam Const alert, oriented x3, no apparent distress and healthy appearing General Appearance: cooperative, well kempt and well developed Orientation / Consciousness: awake, oriented to person, oriented to place and oriented to time HEENT normocephalic, head/scalp atraumatic and moist oral mucous membranes Eyes PERRL, EOMs intact bilaterally and conjunctivae normal Neck supple, no JVD, thyroid normal and no carotid bruits General: trachea midline Resp normal respiratory effort, no retractions, no use of accessory muscles and clear to auscultation bilaterally Auscultation: Negative for rales, rhonchi or wheezes Cardio regular rate, regular rhythm, S1 normal heart sound, S2 normal heart sound, no murmurs, no rub and no gallops GI normal to inspection, nondistended, normoactive bowel sounds, soft to palpation, non-tender and non-distended Extremity no clubbing, cyanosis or edema Skin no rashes or lesions noted General Skin Exam: no breakdown Neuro oriented x3, CN's II-XII intact bilaterally, moves all extremities, no focal motor deficits and no sensory deficits noted Sensorium / Orientation: awake and alert Speech: speech normal Psych affect normal Assessment & Plan Assessment/Plan (1) NSTEMI, initial episode of care: PLAN: Plan 1. Aet-XQKER-gbzco patient underwent a cardiac catheterization today with ballooning of a stenosis below his stent in the obtuse marginal branch. Patient will remain on warfarin and Plavix-since his INR was 3.1 today, I have elected to hold his warfarin today #2 type 2 diabetes-patient is on sliding scale insulin per fingerstick blood sugars, he is also on basal insulin and insulin with meals. #3 hyperlipidemia patient is on Crestor #4 essential hypertension-patient is on amlodipine and metoprolol. Total clinical time spent by myself addressing the patient's medical issues, reviewing all of his data, and collaborating with patient's care team: 35 minutes
--- NOTE | 2024-10-09 14:55 | PCIREPORT_ITS ---
PCI Cardiac Cath Report PCI Report: DATE OF PROCEDURE: October 09, 2024 PROCEDURES PERFORMED: 1. Selective left and right coronary angiography. 2. Moderate conscious sedation 3. Balloon angioplasty to OM1 Indications FOR PROCEDURE: NSTEMI Complications: NONE Specimen: NONE Access: Right Radial Artery Hemostasis: TR band DESCRIPTION OF PROCEDURE: After informed consent was obtained, the patient was brought down to the analytical lab analyst in a fasting state. Right wrist area was prepped, draped and sterilized in the usual fashion. Moderate conscious sedation, administration, documentation and physiologic monitoring of the IV conscious sedation was performed under my direct supervision by a trained registered nurse. Using modified Seldinger technique, right radial artery was then cannulated. A 6-Greenlandic sheath was inserted, sheath was flushed. 6 Greenlandic JR4 catheter was used to engage the right coronary and 6 Greenlandic XB 3 5 catheter was used to engage Left coronary artery. Multiple orthogonal images were then taken. Aortic valve was crossed. After reviewing angiogram, decision was made to intervene on OM1. Using 6 Greenlandic XB 3.5, OM1 was wired using runthrough and the lesion was predilated using 2.5 and 3.0mm NC balloons using 6Fr guide extension. MICAH FLOW was 2, POST POBA was 3. Lesion severity was 90% pre POBA. Post POBA was 40%. Wire and catheter were taken out. TR band was applied. The patient was sent to floor in stable condition. HEMODYNAMICS: LVEDP is 15 DESCRIPTION OF CORONARY ANATOMY: The left main originates from the left coronary sinus of Valsalva in the usual fashion. There was good reflux of dye from this vessel into the coronary sinus, there was no ventriculization or dampening of pressure noted. The LM bifurcates into LAD and LCX . It has no significant CAD noted. The left anterior descending artery originates from the left main in the usual fashion. At mid LAD Trifurcation mid LAD has 50%, ostial diagonal has 70% stenosis, second septal pump runner has 60% Left circumflex artery originates from the bifurcation in the usual fashion, then courses its way down the lateral atrioventricular groove, giving rise to 2 large-sized OM branches. First OM stent with 50% ISR and distally with 90% stenosis. RCA ENGINE HEAD REPAIRER proximally with [id number] collateral. CONCLUSION: 1. RCA ENGINE HEAD REPAIRER, severe disease in OM1 and Moderate-severe disease in LAD 2. Status post POBA to OM1 Recommendations: Continue with high intensity statin. Continue with warfarin starting tomorrow Start Plavix for 30 days Continue to follow-up the patient on telemetry
[2024-10-09 14:56] LABS: ACT Activated Clotting Time 187 sec (74-137)
[2024-10-09 14:56] LABS: ACT Activated Clotting Time 279 sec (74-137)
[2024-10-09 17:53] LABS: Partial Thromboplast Time 74.2 Seconds (24.1-36.2)
[2024-10-10] VITALS (14 sets, daily range): BP systolic 111–143; BP diastolic 72–89; PULSE 61–73; RESP 16–20; TEMP 36.4–36.7; O2SAT 90–100
[2024-10-10 06:16] LABS: Cholesterol 102 mg/dL (<=200); Low Density Lipoprotein Calc. 32 mg/dL; Triglycerides 206 mg/dL; Very Low Density Lipoprotein 41 mg/dL (5-40); cholesterol:hdl ratio screen 3.59
[2024-10-10 06:17] LABS: Anion Gap 10 (5-15); BUN 13 mg/dL (4-19); BUN/Creat Ratio 13.9 RATIO (10-20); Calcium,Total 8.3 mg/dL (7.6-11.0); Carbon Dioxide 23.2 mmol/L (21.0-32.0); Chloride 106 mmol/L (98-108); Estimated Creatinine Clearance 79.78 ml/min (50-250); Glucose 154 mg/dL (70-99); Potassium 3.7 mmol/L (3.3-5.1)
[2024-10-10 08:00] LABS: Hematocrit 43.6 % (40-54); Hemoglobin 14.0 g/dL (13.0-16.5); Mean Corp Hgb Conc 32.1 g/dL (32-36); Mean Corpuscular Volume 81.3 fL (80-94); Mean Platelet Vol. 9.7 fl (6.2-12.0); Platelet Count 119 K/mm3 (150-450); RBC Distribution Width CV 16.6 % (11.6-14.6); RBC Distribution Width SD 48.1 fl (35.1-43.9); Red Blood Count 5.36 M/mm3 (4.6-6.2); White Blood Count 5.8 K/mm3 (4.4-11.0)
[2024-10-10] MEDS: Insulin Glargine-YFGN 100 UNIT/ML Pen 40 UNIT SC (09:59)
--- NOTE | 2024-10-10 10:12 | EKG12_ITS ---
Test Reason : CP Blood Pressure : */* mmHG Vent. Rate : 74 BPM Atrial Rate : 74 BPM P-R Int : 264 ms QRS Dur : 170 ms QT Int : 454 ms P-R-T Axes : 62 180 141 degrees QTcB Int : 503 ms Sinus rhythm with 1st degree A-V block Right bundle branch block Left posterior fascicular block Bifascicular block Inferior infarct , age undetermined Poor R wave progression T wave abnormality, consider lateral ischemia Abnormal ECG When compared with ECG of 09-Oct-2024 04:52, MANUAL COMPARISON REQUIRED DATA IS UNCONFIRMED Confirmed by MD RONNY, YUE ([id number]), online editor JEREMIAS MARKS ([id number]) on 10/11/2024 10:55:24 AM Referred By: Confirmed By: YUE JEFFERSON MD
[2024-10-10] MEDS: Nitroglycerin (INPATIENT USE) 0.4 MG TAB.SUBL SL (10:43)
--- NOTE | 2024-10-10 11:30 | PN.CARD_ITS ---
Subjective Subjective Patient underwent percutaneous revascularization of the OM branch of the circumflex yesterday. He had in-stent restenosis in the stented segment and stenosis just distal to the stented segment. This was treated with plain old balloon angioplasty. The patient did well overnight his right wrist looked fine and he was ready for discharge. The patient developed sharp discomfort in his chest similar to what he presented with originally on this admission. His enzymes were in the 80s during this admission. His ECG failed to show any acute ischemic changes. Repeat ECG today with 10 out of 10 chest pain shows no significant ischemic changes. Currently the patient was been treated with sublingual nitro and morphine. He reports his symptoms are somewhat better I do when I entered the room he was asleep but upon waking him he complains of his sharp chest discomfort that he says comes and pulses as well as is always chronically chronically there. I discussed the situation with Dr. Razo his primary farm instructor and this has been historically an issue trying to sort through the patient's chest pain etiology. Objective Data Vital Signs: Vital Signs Temp Pulse Resp BP Pulse Ox O2 Del Method 98.0 F 63 18 141/85 H 100 Room Air 10/10/24 10:15 10/10/24 10:43 10/10/24 10:15 10/10/24 10:43 10/10/24 10:15 10/10/24 10:25 Oxygen Delivery Method Room Air Weight: 243 lb 9.773 oz Body Mass Index (BMI) 37.0 Intake & Output: Intake and Output for Last 24 Hours 10/08/24 10/09/24 10/10/24 23:59 23:59 23:59 Intake Total 519.83 / 879.83 360 / 360 Output Total 150 / 150 Balance 519.83 / 729.83 210 / 210 Lab / Micro Data 10/10/24 05:41 10/10/24 05:41 Labs: Laboratory Results - last 24 hr 10/09/24 11:42: APTT 65.7 H 10/09/24 12:59: Activated Clotting Time 187 H 10/09/24 13:08: POC Glucose 126 H 10/09/24 13:21: Activated Clotting Time 279 H 10/09/24 15:34: POC Glucose 123 H 10/09/24 17:13: POC Glucose 176 H 10/09/24 17:36: APTT 74.2 H 10/09/24 21:36: POC Glucose 71 L 10/10/24 03:13: POC Glucose 152 H 10/10/24 05:41: WBC 5.8, RBC 5.36, Hgb 14.0, Hct 43.6, MCV 81.3, MCH 26.1 L, MCHC 32.1, RDW Std Deviation 48.1 H, RDW Coeff of Galo 16.6 H, Plt Count 119 L, MPV 9.7, Sodium 140, Potassium 3.7, Chloride 106, Carbon Dioxide 23.2, Anion Gap 10, BUN 13, Creatinine 0.92, Estim Creat Clear Calc 79.78, Est GFR (MDRD) Non-Af 85, BUN/Creatinine Ratio 13.9, Glucose 154 H, Calcium 8.3, Triglycerides 206 H, Cholesterol 102, LDL Cholesterol, Calc 32, VLDL Cholesterol 41 H, HDL Cholesterol 28 L, Cholesterol/HDL Ratio 3.59 Cardiology Labs/Tests 10/09/24 11:42: APTT 65.7 H 10/09/24 17:36: APTT 74.2 H 10/10/24 05:41: WBC 5.8, RBC 5.36, Hgb 14.0, Hct 43.6, MCV 81.3, MCH 26.1 L, MCHC 32.1, Plt Count 119 L, MPV 9.7, Sodium 140, Potassium 3.7, Chloride 106, Carbon Dioxide 23.2, Anion Gap 10, BUN 13, Creatinine 0.92, Est GFR (MDRD) Non- Af 85, BUN/Creatinine Ratio 13.9, Glucose 154 H, Calcium 8.3, Triglycerides 206 H, Cholesterol 102, VLDL Cholesterol 41 H, HDL Cholesterol 28 L, Cholesterol/HDL Ratio 3.59 Rhythm: EKG: ECHO: Stress Test: Cardiac Cath: PCI: CT Surgery: Holter monitor: EPS: PPM: CXR: Chest CT Scan: Physical Exam Const alert and oriented x3 HEENT normocephalic Eyes EOMs intact bilaterally Chest inspection of chest normal Resp normal respiratory effort and clear to auscultation bilaterally Cardio Cardio Narrative: Distant heart tones Rate: regular rate Rhythm: regular rhythm Heart Sounds: S1 normal and S2 normal; Negative for click, gallop or murmur Peripheral Pulses: radial pulses present right (Small ecchymotic area.) 1+ and left 2+ GI GI Narrative: Obese Extremity General Extremity: edema bilateral lower extremity Details: trace Skin Skin Narrative: Hyperpigmentation noted in the lower extremities bilaterally. Neuro Neuro Narrative: Alert and oriented x 3 Psych mental status grossly normal Assessment & Plan Assessment/Plan (1) NSTEMI, initial episode of care: PLAN: Patiently originally presented with minimal an increase in his enzymes in the 80s. His chest discomfort is very difficult to ascertain the etiology. When the balloon was inflated during his procedure yesterday he had no symptoms by his report. The patient was awake and watch the procedure on the TV. Currently the patient is complaining of recurring sharp chest pain identical to what brought him to the hospital. Given his intervention yesterday I would recommend that we reevaluate his OM branch of his circumflex due to the fact that this was in-stent restenosis and distal vessel was treated with plain old balloon angioplasty as well. The patient is agreeable to return to the Chapter Relations Administrator. Dr. Razo will be doing the heart catheterization. (2) HFrEF (heart failure with reduced ejection fraction): PLAN: Patient carries a remote ischemic cardiomyopathy last EF was March 2023 was 60% by report. He does have an ICD in place. It has not fired since he has had his new ICD. PLAN: Plan 1. Recommend urgent left heart catheterization to reevaluate [place] balloon angioplasty site from yesterday. 2. Recommend add IV nitro in the interim. Charges/Coding Visit Charges Inpatient E&M: 55416 Subs Hosp L2
--- NOTE | 2024-10-10 12:00 | CASEMGMT ---
RN CM Face to Face with patient for initial transition planning/care coordination assessment. RN CM introduced self and role at [facility]. Patient lying in bed, alert and oriented. Patient willing to participate in assessment and is able to answer all questions appropriately. Care providers, pharmacy, and demographics verified. Strata:2 PCP: [place] Specialists: Sukumar Hester Pharmacy: [facility] Insurance: [facility], [place] [facility] [place] Prescription Benefit: yes Living Will/HPOA: none LNOK:, carley Living Arrangements: Patient lives with in a single story home with ramp to enter the home. Patient is independent at home. Transportation: self, daughter DME/HHC: Patient has shower chair, cane, grab bars, walker, rollator, bipap, nebulizer, pulse ox, glucometer at home. Patient has had [facility]. Patient wishes to discharge home, denies need for home health at this time. Patient states he has no further needs or concerns at this time. CM to follow for discharge planning needs that may arise. Disposition Plan: Patient to discharge home with family support and follow-up plans in place. Autumn SHEIKH, RN, CM
--- NOTE | 2024-10-10 13:39 | DCINST_ITS ---
Discharge Instructions DC O2, CPAP, BIPAP needs Home O2 Discharge instructions: No Dressing / Incision Discharge Activity: Return to Normal Activity Weight Bearing Status: Full weight bearing Follow Up Care Test Results: Test results from this visit will be discussed in further detail at your follow- up appointment, if applicable. Discharge Plan Admission Admit Date/Time: 10/09/24 05:07 Primary Reason for Your Visit: Occlusive coronary disease Attending Provider: Tomás Barajas Primary Care Provider: Tomás Patino Consulting Providers: Jazmin Najera; Nathan Ramirez Discharge Orders/Prescriptions Prescriptions: New clopidogrel 75 mg Tablet 75 mg PO DAILY Qty: 30 0RF ranolazine 500 mg Tablet Extended Release 12 Hr 500 mg PO BID Qty: 60 0RF Continued dapagliflozin propanediol [Farxiga] 10 mg tablet 10 mg PO DAILY insulin lispro [Humalog KwikPen Insulin] 100 unit/mL insulin pen 25 unit subcut TID ondansetron 4 mg tablet,disintegrating 4 mg PO Q6H PRN (Reason: nausea and vomiting) nortriptyline 25 mg capsule 25 mg PO QHS ferrous sulfate 325 mg (65 mg iron) tablet 325 mg PO QDAY Qty: 90 1RF oxybutynin chloride 10 mg tablet extended release 24hr 10 mg PO QDAY tamsulosin 0.4 mg capsule 0.4 mg PO QDAY latanoprost 0.005 % drops 1 drp EACH EYE TID Trulicity 3 mg/0.5 mL pen injector 4.5 mg SUBCUT [place] gabapentin 300 mg capsule 900 mg PO Q8H warfarin 6 mg tablet 6 mg PO SUTH warfarin 7.5 mg tablet 7.5 mg PO MOTUWEFRSA albuterol sulfate 90 mcg/actuation aero powdr breath act w/sensor 2 inh inhalation Q6H PRN (Reason: shortness of breath) insulin glargine-yfgn 100 unit/mL (3 mL) insulin pen 40 unit subcut BID nitroglycerin 0.4 mg tablet, sublingual 0.4 mg SL Q5M PRN (Reason: Chest Pain) Qty: 25 3RF ropinirole 0.5 mg tablet 1 mg PO QHS Qty: 90 3RF metoprolol tartrate 50 mg tablet 50 mg PO BID Qty: 60 11RF rosuvastatin 40 mg tablet 40 mg PO QHS Qty: 90 3RF amlodipine 5 mg tablet 5 mg PO QDAY Qty: 90 3RF pantoprazole 40 mg tablet,delayed release (DR/EC) 40 mg PO DAILY Qty: 30 2RF isosorbide mononitrate 60 mg tablet extended release 24 hr 60 mg PO BID Qty: 180 3RF Changed potassium chloride [Klor-Con M20] 20 mEq tablet,ER particles/crystals 20 meq PO BID Qty: 1 0RF furosemide 20 mg tablet 40 mg PO DAILY Qty: 1 0RF Referrals / Follow Up: Johan Perry MD [Med Staff - Active Staff] - See Referral Note (In 2 weeks as scheduled) Tomás Patino MD [Primary Care Provider] - Disposition Disposition (needs filled in before D/C Order can be placed): Home, Self Care
--- NOTE | 2024-10-10 13:57 | DS.PCM_ITS ---
Providers Date of Admission: 10/09/24 Date of Discharge: 10/10/24 Primary Care Physician: Dr. Tomás Patino MD Consultations 10/09/24 06:17 Consult: Cardiology Routine Consulting Provider: Jazmin Najera Reason for Consult: NSTEMI EMERGENT Consult: No MD Notified: Yes Date Notified: 10/09/24 Time Notified: 07:37 Method of Notification: Verbal Reason For Visit: NSTEMI Diagnosis Discharge Diagnosis (1) NSTEMI, initial episode of care: Status: Acute Code(s): I21.4 - Non-ST elevation (NSTEMI) myocardial infarction (2) HFrEF (heart failure with reduced ejection fraction): Status: Chronic Code(s): I50.20 - Unspecified systolic (congestive) heart failure Plan 1. [id number] patient underwent a cardiac catheterization today with ballooning of a stenosis below his stent in the obtuse marginal branch. Patient will remain on warfarin and Plavix-since his INR was 3.1 today, I have elected to hold his warfarin today #2 type 2 diabetes-patient is on sliding scale insulin per fingerstick blood sugars, he is also on basal insulin and insulin with meals. #3 hyperlipidemia patient is on Crestor #4 essential hypertension-patient is on amlodipine and metoprolol. Total clinical time spent by myself addressing the patient's medical issues, reviewing all of his data, and collaborating with patient's care team: 35 minutes Medications at Discharge Home Medications dapagliflozin propanediol 10 mg tablet (Farxiga) 10 mg PO DAILY diabetes 04/18/22 nitroglycerin 0.4 mg sublingual tablet 0.4 mg sublingual Q5M PRN Chest Pain #25 tabs 04/21/22 gabapentin 300 mg capsule 900 mg PO Q8H 02/09/23 latanoprost 0.005 % eye drops 1 drp EACH EYE TID glaucoma 10/07/23 ondansetron 4 mg disintegrating tablet 4 mg PO Q6H PRN nausea and vomiting 10/07/23 ferrous sulfate 325 mg (65 mg iron) tablet 325 mg PO QDAY Fe def anemia #90 tabs 02/15/24 warfarin 6 mg tablet 6 mg PO SUTH 02/15/24 warfarin 7.5 mg tablet 7.5 mg PO MOTUWEFRSA 02/15/24 ropinirole 0.5 mg tablet 1 mg (2 x 0.5 mg) PO QHS legs #90 tabs 03/03/24 oxybutynin chloride 10 mg tablet,extended release 24 hr 10 mg PO QDAY 03/11/24 tamsulosin 0.4 mg capsule 0.4 mg PO QDAY 03/11/24 dulaglutide 3 mg/0.5 mL subcutaneous pen injector (Trulicity) 4.5 mg subcut [place] diabetes 06/09/24 nortriptyline 25 mg capsule 25 mg PO QHS 06/09/24 metoprolol tartrate 50 mg tablet 50 mg PO BID #60 tabs 06/10/24 rosuvastatin 40 mg tablet 40 mg PO QHS Cholesterol #90 tabs 06/17/24 amlodipine 5 mg tablet 5 mg PO QDAY #90 tabs 08/29/24 pantoprazole 40 mg tablet,delayed release 40 mg PO DAILY #30 TABLETS 08/29/24 insulin lispro 100 unit/mL subcutaneous pen (Humalog KwikPen (U-100) Insulin) 25 unit subcut TID blood sugar 09/28/24 isosorbide mononitrate 60 mg tablet,extended release 24 hr 60 mg PO BID #180 tabs 10/04/24 albuterol sulfate 90 mcg/actuation breath activated powder inhaler,sensor 2 inh inhalation Q6H PRN shortness of breath 10/09/24 insulin glargine-yfgn 100 unit/mL (3 mL) subcutaneous pen 40 unit subcut BID diabetes 10/09/24 clopidogrel 75 mg tablet 75 mg PO DAILY #30 tabs 10/10/24 furosemide 20 mg tablet 40 mg (2 x 20 mg) PO DAILY #1 TAB 10/10/24 potassium chloride 20 mEq tablet,extended release(part/cryst) (Klor-Con M) 20 meq PO BID #1 TAB 10/10/24 ranolazine 500 mg tablet,extended release,12 hr 500 mg PO BID #60 tabs 10/10/24 tramadol 50 mg tablet 50 mg PO Q6H PRN pain #40 tabs 10/10/24 Hospital Course Operations None Procedures Cardiac catheterization Summary of Care Provided Minutes Spent on Discharge: 31 Hospital Course: 78-year-old white male was seen in the emergency room at [facility] with chief complaint of chest pain. Patient had a past history of coronary artery disease and paroxysmal atrial flutter and was on warfarin. Patient complained of midsternal chest pain described as sharp in nature and did not radiate into the back jaw or arm. Labs revealed normal CBC, chemistry profile was remarkable for glucose of 218, troponin was elevated at 73. Chest x-ray showed no acute findings. EKG showed normal sinus rhythm with first- degree AV block and frequent PVCs. Right bundle branch was also noted. Patient was admitted to PCU and seen in consultation by cardiology, it was recommended the patient undergo a cardiac catheterization, a balloon angioplasty was performed to the obtuse marginal 1 branch. Patient returned to PCU but the next day had a recurrence of the chest pain, he was taken for a cardiac catheterization which did not show any additional findings. On 10/10/2024, patient was seen and examined: On examination he appeared in good health and spirits. Vital signs as documented. Skin warm and dry and without overt rashes. Neck without JVD, neck was supple, trachea midline, thyroid was normal. Lungs clear bilaterally, normal air movement was noted. Heart exam notable for regular rhythm, normal sounds and absence of murmurs, rubs or gallops. Abdomen unremarkable and without evidence of organomegaly, masses, or abdominal aortic enlargement. Bowel sounds are present, abdomen is not distended. Extremities nonedematous, no cyanosis was noted, no clubbing was noted. Neuro: Cranial nerves II through XII are grossly intact, no focal motor deficits were noted, sensation to light touch and pinprick intact, motor exam 5/5 throughout. Psych: Patient is alert and oriented x3, he does not appear anxious or depressed, he does not appear agitated. I had a lengthy discussion with the patient's daughter concerning his complaints of chest discomfort, she was instructed that if he had chest pain that was not improved by taking nitroglycerin at home, she was to bring him back to the hospital for further evaluation. If he had chest pain that was described as sharp in nature, I told her is most likely not due to his coronary artery disease. I did provide the patient with a prescription for Ultram to use for chest discomfort. Patient was discharged home in stable condition on 10/10/2024. Weight / BMI Weight Weight: 110.5 kg Body Mass Index (BMI) 37.0 ABG / Lab / Microbiology Data 10/10/24 05:41 10/10/24 05:41 Laboratory: Laboratory Results - last 24 hr 10/09/24 12:59: Activated Clotting Time 187 H 10/09/24 13:21: Activated Clotting Time 279 H 10/09/24 15:34: POC Glucose 123 H 10/09/24 17:13: POC Glucose 176 H 10/09/24 17:36: APTT 74.2 H 10/09/24 21:36: POC Glucose 71 L 10/10/24 03:13: POC Glucose 152 H 10/10/24 05:41: WBC 5.8, RBC 5.36, Hgb 14.0, Hct 43.6, MCV 81.3, MCH 26.1 L, MCHC 32.1, RDW Std Deviation 48.1 H, RDW Coeff of Galo 16.6 H, Plt Count 119 L, MPV 9.7, Sodium 140, Potassium 3.7, Chloride 106, Carbon Dioxide 23.2, Anion Gap 10, BUN 13, Creatinine 0.92, Estim Creat Clear Calc 79.78, Est GFR (MDRD) Non-Af 85, BUN/Creatinine Ratio 13.9, Glucose 154 H, Calcium 8.3, Triglycerides 206 H, Cholesterol 102, LDL Cholesterol, Calc 32, VLDL Cholesterol 41 H, HDL Cholesterol 28 L, Cholesterol/HDL Ratio 3.59 D/C Instructions Weight Bearing Status: Full weight bearing DC O2, CPAP, BIPAP Needs Home O2 Discharge instructions: No Meaningful Use Info Meaningful Use Meaningful Use Diagnoses (Choose all that apply): AMI AMI/Post PCI/Angioplasty Aspirin given w/in 24hrs of arrival?: No Reason no aspirin w/in 24hrs of arrival?: Pre-arrival Warfarin ASA at discharge?: No Reason ASA not ordered:: Coumadin rx at discharge Antiplatelet Therapy at Discharge:: Yes Statins at discharge?: Yes Terry/ARB at discharge?: No Reason Terry/ARB not ordered:: Not indicated Beta Luh at discharge?: Yes Done w/ Acute TX measure.: Yes Documented LVEF (%): 55 Discharge Plan Admission Admit Date/Time: 10/09/24 05:07 Primary Reason for Your Visit: Occlusive coronary disease Attending Provider: Tomás Barajas Primary Care Provider: Tomás Patino Consulting Providers: Jazmin Najera; aNthan Ramirez Discharge Orders/Prescriptions Prescriptions: New tramadol 50 mg tablet 50 mg PO Q6H PRN (Reason: pain) Qty: 40 0RF Rx Instructions: 1 or 2- 4 times a day as needed for pain, may take with Tylenol 650 mg if desired Continued dapagliflozin propanediol [Farxiga] 10 mg tablet 10 mg PO DAILY insulin lispro [Humalog KwikPen Insulin] 100 unit/mL insulin pen 25 unit subcut TID ondansetron 4 mg tablet,disintegrating 4 mg PO Q6H PRN (Reason: nausea and vomiting) nortriptyline 25 mg capsule 25 mg PO QHS ferrous sulfate 325 mg (65 mg iron) tablet 325 mg PO QDAY Qty: 90 1RF oxybutynin chloride 10 mg tablet extended release 24hr 10 mg PO QDAY tamsulosin 0.4 mg capsule 0.4 mg PO QDAY latanoprost 0.005 % drops 1 drp EACH EYE TID Trulicity 3 mg/0.5 mL pen injector 4.5 mg SUBCUT [place] gabapentin 300 mg capsule 900 mg PO Q8H warfarin 6 mg tablet 6 mg PO SUTH warfarin 7.5 mg tablet 7.5 mg PO MOTUWEFRSA albuterol sulfate 90 mcg/actuation aero powdr breath act w/sensor 2 inh inhalation Q6H PRN (Reason: shortness of breath) insulin glargine-yfgn 100 unit/mL (3 mL) insulin pen 40 unit subcut BID nitroglycerin 0.4 mg tablet, sublingual 0.4 mg SL Q5M PRN (Reason: Chest Pain) Qty: 25 3RF ropinirole 0.5 mg tablet 1 mg PO QHS Qty: 90 3RF metoprolol tartrate 50 mg tablet 50 mg PO BID Qty: 60 11RF rosuvastatin 40 mg tablet 40 mg PO QHS Qty: 90 3RF amlodipine 5 mg tablet 5 mg PO QDAY Qty: 90 3RF pantoprazole 40 mg tablet,delayed release (DR/EC) 40 mg PO DAILY Qty: 30 2RF isosorbide mononitrate 60 mg tablet extended release 24 hr 60 mg PO BID Qty: 180 3RF Changed potassium chloride [Klor-Con M20] 20 mEq tablet,ER particles/crystals 20 meq PO BID Qty: 1 0RF furosemide 20 mg tablet 40 mg PO DAILY Qty: 1 0RF No Action clopidogrel 75 mg tablet 75 mg PO DAILY Qty: 30 0RF ranolazine 500 mg tablet extended release 12 hr 500 mg PO BID Qty: 60 0RF Referrals / Follow Up: Johan Perry MD [Med Staff - Active Staff] - 10/27/24 8:30 am (In 2 weeks as scheduled Appointment is with Francis Kwok N.P.) Tomás Patino MD [Primary Care Provider] - Disposition Disposition (needs filled in before D/C Order can be placed): Home, Self Care Charges/Coding Visit Charges Inpatient E&M: 58276 Disch Hosp >30min
--- NOTE | 2024-10-10 14:12 | CRPHASE1 ---
Patient Communication Patient Information Former Patient:: Phase II PHII Cardiac Rehab Discussed with Patient:: Yes Guide to Cardiac Rehab Given to Patient:: Yes Cardiac Rehab Facility Choice List Given to Patient:: Yes Communication to Cardiac Rehab Choice Program [facility] PHII:: Communication Given to CR Aircraft Structure Mechanic:: Jazmin Najera Refer Phase II Cardiac Rehab:: Yes Sessions:: 36 sessions - 3 days/wk, 12 weeks Cardiac Rehabilitation Info Program Information Cardiac Rehabilitation Program Information: Cardiac Rehab The cardiac rehab team at [facility] consists of highly skilled exercise physiologists, nurses, respiratory therapists and physicians working together with you. Our purpose is to help you have a full recovery and achieve the goals you set for yourself. Over the years many of our patients have returned to activities they assumed they would never do again! We can help restore your confidence and motivation to make lifestyle changes that can have a significant impact on your health and quality of life! We can help answer questions and concerns you may have about exercise, lifestyle, medications, diet, stress and anxiety which are common following a hospitalization. WE monitor ECG and vital signs during exercise and discuss your progress with you and report to your physician(s). Cardiac Rehab is proven to help reduce readmissions, improve functional capacity and lower recurrence of problems with your heart. Our Cardiac Rehab program is Certified by the [place] [employer]monary [employer] (AACVPR) and Accredited by the [employer] through our [facility]. You can contact us at . We invite you to call us with your questions or to get started in our program. If you have other questions or concerns be sure to ask your physician/provider during your follow-up visit. WE look forward to seeing you!
--- NOTE | 2024-10-10 14:13 | CRPH1.INSTRU ---
General Education Discussed with Patient CAD and cardiac anatomy and function:: Needs reinforcement Explanation of diagnoses and procedures:: Needs reinforcement Sign/Symptoms of PR:: Needs reinforcement Antiplatelet therapy: Needs reinforcement Proper use of NTG-SL: Needs reinforcement Emergency procedures and activation of EMS: Needs reinforcement Compliance of all prescribed medications: Needs reinforcement Dyslipidemia Risk Factors Patient Dyslipidemia Risk Factors Are:: Total Cholesterol, Triglycerides, HDL and LDL Recommendations Recommendations Include:: Lipid profile not available Response Code Dyslipidemia Response Code:: Needs reinforcement Overweight/Obesity Risk Factors Patient Overweight/Obesity Risk Factors Are:: Obesity - > or = 30 Recommendations Recommendations Include:: Weight loss of 5-10%, Reduced calorie diet and Exercise 5-7 times/week Response Code Overweight/Obesity:: Needs reinforcement Hypertension Recommendations Recommendations Include:: BP <130/80 if diabetic and Decrease/maintain normal body weight Response Code Hypertension:: Needs reinforcement Heart Disease Risk Factors Patient Heart Disease Risk Factors Are:: Previous cardiac event Recommendations Recommendations Include:: Educated family members of their risk and Educated family members of importance of prevention of heart disease Response Code Heart Disease Response Code:: Needs reinforcement Diabetes Risk Factors Patient Diabetes Risk Factors Are:: Elevated blood sugars Recommendations Recommendations Include:: Maintain fasting blood sugars 70-110 md/dL, Maintain HgbA1c of 6% or less, Monitor blood sugar as prescribed, Diabetic dietary guidelines and Decrease/maintain body weight Response Code Diabetes:: Needs reinforcement Sedentary Risk Factors Patient Sedentary Risk Factors Are:: Lack of regular exercise Recommendations Recommendations Include:: Aerobic exercise 5-7 times/week for 20-30 minutes continuously, Benefits of regular exercise, Discussed home walking program and Monitored Outpatient Cardiac Rehab Response Code Sedentary Response Code:: Needs reinforcement
--- NOTE | 2024-11-07 09:46 | CL.D_ITS ---
Patient Name: Tim LONG Study Date: 10/10/2024 Performing: Johan Perry MD Ht: 68 inches 172.72 cm : 1945 Wt: 243.61 lbs 110.5 kg Age: 78 Gender: male BSA: 2.22 PROCEDURE(S) PERFORMED [id number])[facility] CLINICAL PROFILE AND INDICATIONS Indications: Worsening Angina Heart Failure: None Stress/Imaging Stress/Image Study Performed: No CAD Presentations: Symptom unlikely to be ischemic. CONCLUSIONS Previously placed stent in first obtuse marginal branch/ramus intermedius is noted to be patent with mild to moderate disease, moderate disease noted in [place] circumflex artery, mild to moderate disease noted in LAD. In comparison with the previous films the above are essentially unchanged and unlikely to be responsible for the excruciating chest pain. RECOMMENDATIONS Medical therapy Will consider EECP as well DESCRIPTION OF PROCEDURE The patient arrived to the procedure lab. The risks and benefits of the procedure as well as a full description of our services here and current unavailability of surgical backup were fully explained to the patient and/or their significant other prior to the catheterization. The Timeout was completed, verifying the correct patient and procedure. The patient's procedural site was prepped and draped in the usual fashion. Local anesthetic was given subcutaneously to right radial region with Lidocaine 2%. Using a modified Seldinger technique, arterial access was obtained via the right radial artery, a 6Fr sheath was inserted. Left Coronary Artery selective angiography was performed in multiple views using a 5 Fr. 4.0 [place] catheter.The arterial sheath was pulled and a TR Band was applied for hemostasis. 15cc of air CORONARY ANGIOGRAPHY DOMINANCE: Right Dominant LEFT MAIN: No significant disease noted LEFT ANTERIOR DESCENDING ARTERY: Moderate luminal irregularities up to 50% CIRCUMFLEX ARTERY: [place] circumflex artery is diseased proximally with a proximal 50% stenosis the vessel continues the second obtuse marginal branch has moderate disease. Azwm-da-qgniy collaterals are noted. RAMUS: This previously stented vessel has a patent stent with some mild to moderate in-stent stenosis. The area immediately after the stent appears to have a 40% stenosis but compared to the prestenting pulled the lesion this appears to be better. RIGHT CORONARY ARTERY: Known occluded COMPLICATIONS No Complications PROCEDURE MEDICATIONS Versed 1 mg IV Oxygen: 2 L/min via nasal cannula SUMMARY OF HEMODYNAMIC DATA Time AIR REST ECG 12:37:25 AO 136/82 (106) SA 13:12:25 Signed By Johan Perry MD On 10/10/2024 13:24:49 Johan Perry MD
== END 2024-10-10 17:16 | disposition home or self-care (01) | DRG 321 ==
LOC: ED 05:16 → PCU 05:22
PROVIDERS: Admitting Provider Hospitalist; Emergency Provider Surgery; PCP Family Medicine; Visit Provider Internal Medicine
DX: T82.855A Stenosis of coronary artery stent, initial encounter (principal); I21.4 Non-ST elevation (NSTEMI) myocardial infarction; I50.32 Chronic diastolic (congestive) heart failure; N13.8 Other obstructive and reflux uropathy; Z68.42 Body mass index [BMI] 45.0-49.9, adult; I44.1 Atrioventricular block, second degree; I11.0 Hypertensive heart disease with heart failure; G25.81 Restless legs syndrome; I48.0 Paroxysmal atrial fibrillation; E11.40 Type 2 diabetes mellitus with diabetic neuropathy, unspecified; Z79.4 Long term (current) use of insulin; E78.00 Pure hypercholesterolemia, unspecified; I25.5 Ischemic cardiomyopathy; I25.10 Atherosclerotic heart disease of native coronary artery without angina pectoris; K21.9 Gastro-esophageal reflux disease without esophagitis; I25.2 Old myocardial infarction; G47.33 Obstructive sleep apnea (adult) (pediatric); E66.813 Obesity, class 3; X58.XXXA Exposure to other specified factors, initial encounter; N40.1 Benign prostatic hyperplasia with lower urinary tract symptoms; N32.81 Overactive bladder; Z95.5 Presence of coronary angioplasty implant and graft; Z95.810 Presence of automatic (implantable) cardiac defibrillator; Z79.01 Long term (current) use of anticoagulants; Z79.82 Long term (current) use of aspirin; Z79.84 Long term (current) use of oral hypoglycemic drugs; Z79.85 Long-term (current) use of injectable non-insulin antidiabetic drugs; Z79.899 Other long term (current) drug therapy; Z86.718 Personal history of other venous thrombosis and embolism; Z86.73 Personal history of transient ischemic attack (TIA), and cerebral infarction without residual deficits; Z87.891 Personal history of nicotine dependence
CPT/HCPCS: 36415; 71045; 80048; 80061; 82962; 83036; 83880; 84443; 84484; 85025; 85027; 85347; 85379; 85610; 85730; 92920; 93005; 93454; 93458; 94668; 97116; 97162; 97166; 97530; 97802; 99152; 99153; 99252; 99285; Q9967; A4216; C1725; C1769; C1874; C1887; C1894; G0463; J2405

== ENCOUNTER 2024-10-14 18:05 | Emergency (ER) | payer MEDICARE, OTHER, SELFPAY ==
[2017-11-06 10:25] VITALS: BMI 37.2
[2024-10-14] VITALS (28 sets, daily range): BP systolic 91–130; BP diastolic 65–86; PULSE 64–93; RESP 14–33; TEMP 36.4; O2SAT 92–98; BMI 38.2
[2024-10-14] MEDS: 0.9% Normal Saline (1000mL) 1,000 ML 999 ML IV (18:07)
--- NOTE | 2024-10-14 18:17 | EDS_ITS ---
HPI History of Present Illness Chief Complaint: Chest Pain Informant: patient, family and EMS Narrative Narrative: Patient 78-year-old male with history of ischemic cardiomyopathy, ICD, corticosteroid failure with hypoxia, obstructive sleep apnea, proximal atrial flutter, long-term anticoagulation use with Coumadin and coronary artery disease who underwent cardiac catheterization with balloon angioplasty to prior stent on 10/09 (5 days ago). The next day he had recurrent chest pain and was taken back for cardiac catheterization over that time we did not have any acute changes. He is presenting today with acute onset of central chest pain and shortness of breath. He states pain is worse when he takes a deep breath. Did take nitro at home as well as tramadol and Tylenol with no relief of his symptoms. Was brought in for further evaluation by EMS. Second EKG sent by EMS was concerning for STEMI in the inferior leads and STEMI alert was called. Cardiology note from 10/10/2024 reviewed?patient had percutaneous revascularization of OM branch of the circumflex. He had in-stent restenosis and stenosis just distal to the stented segment. This is treated by balloon angioplasty. Patient developed sharp discomfort in his chest the following day and taken back to the [facility]. [facility] Medical History NSTEMI, initial episode of care PVC (premature ventricular contraction) Personal history of colonic polyps Syncope and collapse Iron deficiency anemia due to chronic blood loss History of DVT (deep vein thrombosis) History of pacemaker History of CHF (congestive heart failure) Gastritis GI bleed Chest pain Wears dentures Wears glasses Insulin dependent diabetes mellitus Walker as ambulation aid Arthritis History of renal disease High cholesterol Restless legs Back pain TIA (transient ischemic attack) Syncope Difficulty swallowing Gastric reflux Former smoker Shortness of breath on exertion Leg cramps History of edema History of echocardiogram History of stress test Cardiology follow-up encounter History of heart attack History of irregular heartbeat Melena Anticoagulant long-term use Blood in stool Morbid obesity with BMI of 40.0-44.9, adult Uncontrolled type 2 diabetes mellitus COPD exacerbation Anemia Dyspnea on exertion Normocytic anemia HFrEF (heart failure with reduced ejection fraction) Peripheral vascular occlusive disease Dermatitis of lower extremity Ulcer of right lower extremity Essential (primary) hypertension Cellulitis Ulcer of left lower extremity with fat layer exposed 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 Corns and callosities Xerosis cutis Other specified peripheral vascular diseases Other hereditary and idiopathic neuropathies Cellulitis of right leg Ulcer of right lower extremity with fat layer exposed Walking difficulty due to ankle and foot Nondisp fracture of fifth left metatarsal bone with routine healing Localized edema Ulcer of right lower extremity with fat layer exposed Diabetes mellitus type 2 in obese Paroxysmal atrial flutter History of deep vein thrombosis (DVT) of lower extremity Nonsustained ventricular tachycardia Hyperlipidemia History of non-ST elevation myocardial infarction (NSTEMI) (11/05/16) Atherosclerotic heart disease of [place] coronary artery with other forms of angina pectoris Nonrheumatic tricuspid (valve) insufficiency Ischemic cardiomyopathy Home Medications ?Medication ?Instructions ?Recorded ?Last Taken ?Type dapagliflozin propanediol 10 mg 10 mg PO DAILY diabete s 04/18/22 09/23/23 History tablet (Farxiga) nitroglycerin 0.4 mg sublingual 0.4 mg sublingual Q5M PRN Chest 04/21/22 Unknown Rx tablet Pain #25 tabs gabapentin 300 mg capsule 900 mg PO Q8H 02/09/2301/12 History latanoprost 0.005 % eye drops 1 drp EACH EYE TID glauc juan jose 10/07/23 01/12/24 History ondansetron 4 mg disintegrating 4 mg PO Q6H PRN nausea and vomiting 10/07/23 Unknown History tablet ferrous sulfate 325 mg (65 mg 325 mg PO QDAY Fe def an emia #90 02/15/24 Unknown Rx iron) tablet tabs warfarin 6 mg tablet 6 mg PO SUTH 02/15/24 Unknow n History warfarin 7.5 mg tablet 7.5 mg PO MOTUWEFRSA 4 Unknown History ropinirole 0.5 mg tablet 1 mg (2 x 0.5 mg) PO QHS leg s #90 03/03/24 Unknown Rx tabs oxybutynin chloride 10 mg 10 mg PO QDAY 03/11/24 Unkno wn History tablet,extended release 24 hr tamsulosin 0.4 mg capsule 0.4 mg PO QDAY 03/11/24 Unkn own History dulaglutide 3 mg/0.5 mL 4.5 mg subcut [place] diabetes Unknown History subcutaneous pen injector (Trulicity) nortriptyline 25 mg capsule 25 mg PO QHS 06/09/24 Unkn own History metoprolol tartrate 50 mg tablet 50 mg PO BID #60 tabs 06/10/24 Unknown Rx rosuvastatin 40 mg tablet 40 mg PO QHS Cholesterol #90 tabs 06/17/24 Unknown Rx amlodipine 5 mg tablet 5 mg PO QDAY #90 tabs Unknown Rx pantoprazole 40 mg tablet,delayed 40 mg PO DAILY #30 T ABLETS 08/29/24 Unknown Rx release insulin lispro 100 unit/mL 25 unit subcut TID blood de [place] rosa gar 09/28/24 Unknown History subcutaneous pen (Humalog KwikPen (U-100) Insulin) isosorbide mononitrate 60 mg 60 mg PO BID #180 tabs Unknown Rx tablet,extended release 24 hr albuterol sulfate 90 mcg/actuation 2 inh inhalation Q6 H PRN shortness 10/09/24 Unknown History breath activated powder of breath inhaler,sensor insulin glargine-yfgn 100 unit/mL 40 unit subcut BID d iabetes 10/09/24 Unknown History (3 mL) subcutaneous pen clopidogrel 75 mg tablet 75 mg PO DAILY #30 tabs 09/27 07/22 Unknown Rx furosemide 20 mg tablet 40 mg (2 x 20 mg) PO DAILY # 1 TAB 10/10/24 Unknown Rx potassium chloride 20 mEq 20 meq PO BID #1 TAB 10/10/2 5 01/12/24 Rx tablet,extended release(part/cryst) (Klor-Con M) ranolazine 500 mg tablet,extended 500 mg PO BID #60 ta bs 10/10/24 Unknown Rx release,12 hr tramadol 50 mg tablet 50 mg PO Q6H PRN pain #40 ta bs 10/10/24 Unknown Rx Allergy/AdvReac Type Severity Reaction Status Date / Time ceftriaxone sodium (From Allergy Rash Verified 10/09/24 03:25 Rocephin) milk AdvReac Diarrhea Verified 10/09/24 03:25 morphine AdvReac hallucinati Verified 10/09/24 03:25 ons Family History Father , Age 78 Prostate cancer Mother , Age 80 CVA (cerebral vascular accident) Sister Congestive heart failure Diabetes Hypertension Hyperlipidemia Atrial fibrillation CAD (coronary artery disease) Cardiac defibrillator in situ Sister Breast cancer Sister Breast cancer Brother CAD (coronary artery disease) Myocardial infarction Diabetes Brother Diabetes Brother , Age 74 COPD (chronic obstructive pulmonary disease) Sister Alive and well Surgical History H/O percutaneous transluminal coronary angioplasty (10/09/24) History of colonoscopy History of esophagogastroduodenoscopy (EGD) History of implantable cardiac defibrillator (ICD) History of cardiac catheterization History of angioplasty of peripheral vessel History of implantable cardiac defibrillator (ICD) (11/19/17) History of radiofrequency ablation procedure for cardiac arrhythmia (07/01/11) History of electrophysiologic study (11/23/02) History of left heart catheterization (12/06/18) History of coronary artery stent placement (12/15/14) H/O colonoscopy with polypectomy (11/2017) History of detached retina repair ICD (implantable cardioverter-defibrillator) in place Social History household members: spouse housing: house current occupational status: retired pets and animals: Yes (2 dogs, 2 cats) Smoking Status: Former smoker pack-years: 20 how long ago did patient quit smokin years ago alcohol intake: never caffeine: Yes Type: coffee Number of servings: 1 ROS ROS ED Constitutional Constitutional ED: Reports other Details: Lightheaded ; Denies chills, fever(s) or sweats Cardiovascular Cardiovascular: Reports as per HPI and chest pain; Denies palpitations Respiratory/Chest Respiratory/Chest: Reports dyspnea; Denies cough or sputum Gastrointestinal Gastrointestinal: Reports nausea and vomiting; Denies abdominal pain Musculoskeletal Musculoskeletal: Denies arthralgias, back pain or myalgias Neurologic Neurologic: Reports weakness Psychiatric Psychiatric: Reports anxiety Hematologic/Lymphatic Hematologic/Lymphatic: Reports easy bleeding, easy bruising and other Details: On Coumadin EXAM Physical Exam Const Vital Signs: 10/14/24 18:07 10/14/24 18:10 10/14/24 18:10 Temperature 97.5 F L Temperature Source Temporal Pulse Rate 81 90 Respiratory Rate 17 22 H Respiratory Effort Blood Pressure 124/86 H 124/86 H 124/86 H Blood Pressure Mean 98 98 Pulse Ox 93 92 Oxygen Delivery Method Nasal Cannula Nasal Cannula Oxygen Flow Rate (L/min) 2 2 10/14/24 18:10 10/14/24 18:22 10/14/24 18:22 Temperature Temperature Source Pulse Rate 90 Respiratory Rate 16 Respiratory Effort Normal Blood Pressure 111/80 Blood Pressure Mean 90 Pulse Ox 95 96 Oxygen Delivery Method Nasal Cannula Nasal Cannula Oxygen Flow Rate (L/min) 2 2 10/14/24 18:29 10/14/24 18:36 10/14/24 18:39 Temperature Temperature Source Pulse Rate 91 93 93 Respiratory Rate 33 H Respiratory Effort Blood Pressure 111/80 122/82 H 122/82 H Blood Pressure Mean 95 95 Pulse Ox 94 Oxygen Delivery Method Nasal Cannula Oxygen Flow Rate (L/min) 2 10/14/24 18:39 10/14/24 18:51 10/14/24 18:54 Temperature Temperature Source Pulse Rate 84 88 Respiratory Rate 14 19 H Respiratory Effort Blood Pressure 99/72 129/86 H 123/81 H Blood Pressure Mean 81 100 95 Pulse Ox 98 95 Oxygen Delivery Method Nasal Cannula Nasal Cannula Oxygen Flow Rate (L/min) 4 4 10/14/24 18:56 10/14/24 19:01 10/14/24 19:03 Temperature Temperature Source Pulse Rate 89 Respiratory Rate 19 H Respiratory Effort Blood Pressure 123/81 H 113/78 113/78 Blood Pressure Mean 95 89 89 Pulse Ox 96 Oxygen Delivery Method Nasal Cannula Oxygen Flow Rate (L/min) 4 10/14/24 19:06 10/14/24 19:11 10/14/24 19:16 Temperature Temperature Source Pulse Rate Respiratory Rate Respiratory Effort Blood Pressure 96/69 130/81 H 111/79 Blood Pressure Mean 78 97 89 Pulse Ox Oxygen Delivery Method Oxygen Flow Rate (L/min) 10/14/24 19:21 10/14/24 19:26 10/14/24 19:30 Temperature Temperature Source Pulse Rate 85 Respiratory Rate 18 Respiratory Effort Blood Pressure 99/72 96/73 95/65 Blood Pressure Mean 81 80 75 Pulse Ox 94 Oxygen Delivery Method Room Air Oxygen Flow Rate (L/min) 10/14/24 19:45 10/14/24 20:00 10/14/24 20:30 Temperature Temperature Source Pulse Rate 79 67 Respiratory Rate 19 H 17 Respiratory Effort Blood Pressure 98/70 97/69 93/73 Blood Pressure Mean 79 78 79 Pulse Ox 96 93 Oxygen Delivery Method Room Air Room Air Oxygen Flow Rate (L/min) 10/14/24 20:40 10/14/24 21:00 Temperature Temperature Source Pulse Rate 79 Respiratory Rate 16 Respiratory Effort Blood Pressure 100/76 94/70 Blood Pressure Mean 84 78 Pulse Ox 98 Oxygen Delivery Method Room Air Oxygen Flow Rate (L/min) Positive well nourished and obese Constitutional Narrative: Unwell appearing Nutritional Appearance: obese HEENT Reports moist mucous membranes normocephalic and atraumatic Neck supple and no JVD Chest Wall inspection of chest normal and palpation of chest normal Resp normal respiratory effort and clear to auscultation bilaterally Auscultation: Negative for rhonchi or wheezes Cardio regular rate, regular rhythm, S1 normal heart sound, S2 normal heart sound and no murmurs GI normal to inspection, nondistended, normoactive bowel sounds, soft to palpation and non-tender Palpation: Negative for mass Extremity General Extremety ED: Yes edema General Extremity: edema Neuro oriented x3 Sensorium / Orientation: awake and alert Motor Exam: general weakness Psych mental status grossly normal Mood & Affect: anxious Skin no rashes or lesions noted Skin Narrative: No mottling appreciated Heart Score History: Highly Suspicious ECG: Significant ST-Depression Age: >/= 65 years Risk Factors: >/= 3 Risk Factors or History of CAD Troponin: >1 - <3 Normal Limit Score: 9 MDM MDM MDM Narrative Medical decision making narrative: Patient evaluated for severe chest pain that started out today. He was using a riding lawnmower. He had the severe chest pain in the front of his chest he describes more as a pressure. Denies any radiation. Denies any ripping or tearing sensation. He went inside and took nitroglycerin, tramadol and Tylenol with no relief. I had episode of vomiting. 911 was called by his daughter. And route patient had initial EKG with some PVCs but it has T wave inversions into V2 and V3. Repeat EKG was concerning for STEMI criteria in the inferior leads with ST elevations in 3 and aVF as well as depressions in V2 through V5. There are PVCs however I am not sure how much of this is artifact from PVCs versus STEMI. Prearrival STEMI alert is called. Upon arrival repeat EKG shows right bundle branch block. Patient continues to have pain. Is given STEMI medications. Case discussed with Dr. Vazquez will come in to evaluate the patient. Patient given nitro (per recommendation of cardiology) as well as fentanyl and Zofran for symptom control. Patient placed on heparin drip as well as nitro drip. He finally decided to have some improvement of his pain while in the emergency room. I evaluated the bedside with cardiology. EKG here is not consistent with ACS. Concerned now that he does have severe multivessel disease and will require evaluation for potential CABG. Cardiology at this time does not think he requires another emergent cardiac catheterization. Outpatient follows with [facility] for PCP and would like to be transferred to [facility]. Did speak with Dr. Mahajan who accepted the patient. Has since he troponin does elevate from 69-93 at the 2-hour check. His INR is subtherapeutic at 1.6. D-dimer is normal and I do not suspect PE or that he needs a CTA. Does have a mild elevation of his creatinine to 1.27. Is also given gentle IV fluids in the emergency room. Family at the bedside is agreeable with this plan of care. Lab Data Attestation: I reviewed the patient's lab results. Labs: Laboratory Results - last 24 hr 10/14/24 10/14/24 10/14/24 18:19 18:19 18:19 WBC 10.8 RBC 6.31 H Hgb 16.5 Hct 49.9 MCV 79.1 L MCH 26.1 L MCHC 33.1 RDW Std Deviation 45.7 H RDW Coeff of Galo 17.5 H Plt Count 174 MPV 9.5 Immature Gran % (Auto) 0.600 Neut % (Auto) 82.5 H Lymph % (Auto) 9.1 L [place] % (Auto) 6.5 Eos % (Auto) 0.7 Baso % (Auto) 0.6 Absolute Neuts (auto) 8.9 H Absolute Lymphs (auto) 0.98 Nucleated RBC % 0 PT 19.7 H Cancelled INR 1.6 Cancelled APTT 28.4 D-Dimer Quant (PE/DVT) Sodium Potassium Chloride Carbon Dioxide Anion Gap BUN Creatinine Estim Creat Clear Calc Est GFR (MDRD) Non-Af BUN/Creatinine Ratio Glucose Calcium Troponin T High Sens Troponin T Hi Sens 2 Hr 10/14/24 10/14/24 18:19 20:10 WBC RBC Hgb Hct MCV MCH MCHC RDW Std Deviation RDW Coeff of [place] Plt Count MPV Immature Gran % (Auto) Neut % (Auto) Lymph % (Auto) [place] % (Auto) Eos % (Auto) Baso % (Auto) Absolute Neuts (auto) Absolute Lymphs (auto) Nucleated RBC % PT INR APTT Cancelled D-Dimer Quant (PE/DVT) 0.27 Sodium 140 Potassium 3.5 Chloride 102 Carbon Dioxide 24.3 Anion Gap 14 BUN 17 Creatinine 1.27 H Estim Creat Clear Calc 58.77 Est GFR (MDRD) Non-Af 58 L BUN/Creatinine Ratio 13.5 Glucose 84 Calcium 9.1 Troponin T High Sens 69 H* Troponin T Hi Sens 2 Hr 93 H* Rhythm Strip Rhythm Strip: Sinus Rhythm Rate: 89 Ectopy: PVC(s) EKG Initial EKG: Attestation: I personally reviewed and interpreted this EKG as follows: Interpretation: Sinus Rhythm Comments: Normal sinus rhythm rate of 89 bpm Left axis deviation Right bundle branch block T wave inversions in 3, aVF and ST depression in V2 with continued T wave inversion in V1 through V5 Compared to prior EKG on 10/09/2024 patient has slight T wave inversions now in aVF and more pronounced T wave changes in the precordial leads Follow-up EKG: Attestation: I personally reviewed and interpreted this EKG as follows: Interpretation: Sinus Rhythm Comments: Normal sinus rhythm rate of 94 bpm with frequent PVCs Left axis deviation PVCs concerning for STEMI but the actual beats are not. No dynamic changes except for increased PVCs Management Discussion w/another healthcare provider: [employer] Supervisor (Cardiology) Critical Care Time Critical Care Time: Yes Critical care time (excluding procedures): 30-74 minutes (40), Discussing w/Patient &/or Family/Supervisor [employer], Discussing w/Consultants and Arranging A dmission or Transfer Discharge Plan Triage Chief Complaint: Chest Pain ED Provider: Odalis Vernon Dx/Rx/DC Orders Clinical Impression: Acute chest pain, Non-ST elevation OR (NSTEMI), CAD (coronary artery disease), Subtherapeutic international normalized ratio (INR) Prescriptions: No Action dapagliflozin propanediol [Farxiga] 10 mg tablet 10 mg PO DAILY insulin lispro [Humalog KwikPen Insulin] 100 unit/mL insulin pen 25 unit subcut TID ondansetron 4 mg tablet,disintegrating 4 mg PO Q6H PRN (Reason: nausea and vomiting) nortriptyline 25 mg capsule 25 mg PO QHS ferrous sulfate 325 mg (65 mg iron) tablet 325 mg PO QDAY Qty: 90 1RF oxybutynin chloride 10 mg tablet extended release 24hr 10 mg PO QDAY tamsulosin 0.4 mg capsule 0.4 mg PO QDAY latanoprost 0.005 % drops 1 drp EACH EYE TID Trulicity 3 mg/0.5 mL pen injector 4.5 mg SUBCUT [place] gabapentin 300 mg capsule 900 mg PO Q8H warfarin 6 mg tablet 6 mg PO SUTH warfarin 7.5 mg tablet 7.5 mg PO MOTUWEFRSA albuterol sulfate 90 mcg/actuation aero powdr breath act w/sensor 2 inh inhalation Q6H PRN (Reason: shortness of breath) insulin glargine-yfgn 100 unit/mL (3 mL) insulin pen 40 unit subcut BID potassium chloride [Klor-Con M20] 20 mEq tablet,ER particles/crystals 20 meq PO BID Qty: 1 0RF furosemide 20 mg tablet 40 mg PO DAILY Qty: 1 0RF tramadol 50 mg tablet 50 mg PO Q6H PRN (Reason: pain) Qty: 40 0RF Rx Instructions: 1 or 2- 4 times a day as needed for pain, may take with Tylenol 650 mg if desired nitroglycerin 0.4 mg tablet, sublingual 0.4 mg SL Q5M PRN (Reason: Chest Pain) Qty: 25 3RF ropinirole 0.5 mg tablet 1 mg PO QHS Qty: 90 3RF metoprolol tartrate 50 mg tablet 50 mg PO BID Qty: 60 11RF rosuvastatin 40 mg tablet 40 mg PO QHS Qty: 90 3RF amlodipine 5 mg tablet 5 mg PO QDAY Qty: 90 3RF pantoprazole 40 mg tablet,delayed release (DR/EC) 40 mg PO DAILY Qty: 30 2RF isosorbide mononitrate 60 mg tablet extended release 24 hr 60 mg PO BID Qty: 180 3RF clopidogrel 75 mg tablet 75 mg PO DAILY Qty: 30 0RF ranolazine 500 mg tablet extended release 12 hr 500 mg PO BID Qty: 60 0RF Primary Care Provider: Tomás Patino Referrals: Tomás Patino MD [Primary Care Provider] - Print Language: [place] Disposition Disposition: Acute Care Hospital Discharge Location: [facility]
[2024-10-14] MEDS: TICAGRELOR 90 MG TABLET 180 MG PO (18:19)
[2024-10-14] MEDS: Heparin Injection (Vial) 5,000 UNIT/ML VIAL 4000 UNIT IV (18:19)
[2024-10-14] MEDS: fentaNYL 100 MCG/2 ML Ampul 25 MCG IV ×2 (18:25→18:32)
[2024-10-14 18:26] LABS: Hematocrit 49.9 % (40-54); Hemoglobin 16.5 g/dL (13.0-16.5); Immature Granulocytes Count 0.060 X10^3/uL (0.0-0.0); Mean Corp Hgb Conc 33.1 g/dL (32-36); Mean Corpuscular Volume 79.1 fL (80-94); Mean Platelet Vol. 9.5 fl (6.2-12.0); NRBC Flagged by Analyzer 0 % (0-5); Platelet Count 174 K/mm3 (150-450); RBC Distribution Width CV 17.5 % (11.6-14.6); RBC Distribution Width SD 45.7 fl (35.1-43.9); Red Blood Count 6.31 M/mm3 (4.6-6.2); White Blood Count 10.8 K/mm3 (4.4-11.0)
[2024-10-14] MEDS: Nitroglycerin SL (ED/IMG/CATH) 0.4 MG TABLET SL (18:29)
--- NOTE | 2024-10-14 18:32 | EKG12_ITS ---
Test Reason : DYSRHYTHMIA Blood Pressure : */* mmHG Vent. Rate : 87 BPM Atrial Rate : 87 BPM P-R Int : 212 ms QRS Dur : 168 ms QT Int : 402 ms P-R-T Axes : 49 -40 12 degrees QTcB Int : 483 ms Sinus rhythm with 1st degree A-V block with frequent and consecutive Premature ventricular complexes with ventricular escape complexes Right bundle branch block Lateral infarct , age undetermined Inferior infarct , age undetermined Abnormal ECG When compared with ECG of 14-Oct-2024 18:22, MANUAL COMPARISON REQUIRED DATA IS UNCONFIRMED Confirmed by Federico Mora ([id number]), sound editor SABINE ALVAREZ ([id number]) on 10/18/2024 5:46:53 AM Referred By: POONAM Confirmed By: Federico Mora
[2024-10-14 18:38] LABS: Prothrombin Time (Protime)PT. 19.7 SECONDS (11.7-14.9)
[2024-10-14 18:39] LABS: Partial Thromboplast Time 28.4 Seconds (24.1-36.2)
[2024-10-14] MEDS: Nitroglycerin Infusion 250 ML 6 MG CONT INF (18:39)
[2024-10-14] MEDS: HEPARIN/D5w 25,000 UNITS 25,000 UNITS/250 ML IV.SOLN. 13.7 UNITS CONT INF (18:45)
--- NOTE | 2024-10-14 18:50 | PCM.CONS.C ---
Assessment & Plan Assessment/Plan (1) Unstable angina pectoris: PLAN: Chronic total occlusion of the right coronary artery with gmjh-my-vkhuy collaterals. Severe disease of the mid LAD diagonal bifurcation, in-stent restenosis of the first obtuse marginal last week. Patient continues to have angina. I think he needs to be evaluated for CABG versus multivessel percutaneous intervention with a heart team approach. Recommend transfer to a tertiary care facility. Continue aspirin. Heparin. Nitrates. Beta-blockers. (2) History of ischemic cardiomyopathy: PLAN: Last echocardiogram showed ejection fraction recovered. Recommend repeat echo. (3) Paroxysmal atrial flutter: PLAN: On warfarin as outpatient. (4) Presence of implantable cardioverter-defibrillator (ICD): PLAN: History of nonischemic cardiomyopathy and nonsustained ventricular tachycardia. EF having since recovered. Repeat echocardiogram. HPI Consult Data Date of Consult: 10/14/24 HPI Narrative Reason for Consultation: Chest pain HPI Narrative: This gentleman has past medical history significant for coronary artery disease, cardiomyopathy with EF having since recovered, paroxysmal atrial flutter, peripheral arterial disease and hypertension. He was in the hospital this last week when he had presented with NSTEMI. Coronary angiography at the time revealed chronic total occlusion of the right with [id number] collaterals. He was also noted to have significant in-stent restenosis of his first obtuse marginal branch. Also noted to have severe mid LAD diagonal bifurcation lesion. Balloon angioplasty was performed to the in-stent restenosis of his first obtuse marginal branch. The next day he was brought to the cardiac catheterization lab for continuing chest discomfort. He was noted to have patent obtuse marginal branch with MICAH-3 flow. 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 Perry, patient has been having chronic angina. EMS was called earlier today after patient developed acute chest discomfort when he was mowing his lawn. Positive nausea and vomiting. EKG was done in the field. A STEMI alert was called for possible ST elevations. However upon repeat ECG, he was noted to have his old left bundle branch block with old inferior RI with no new changes. Started on nitrates and heparin in the emergency room. His discomfort is already much better. REPLACED BY [facility] Medical History (Updated 10/14/24 @ 18:[address] Seema Vazquez MD) NSTEMI, initial episode of care PVC (premature ventricular contraction) Personal history of colonic polyps Syncope and collapse Iron deficiency anemia due to chronic blood loss History of DVT (deep vein thrombosis) History of pacemaker History of CHF (congestive heart failure) Gastritis GI bleed Chest pain Wears dentures Wears glasses Insulin dependent diabetes mellitus Walker as ambulation aid Arthritis History of renal disease High cholesterol Restless legs Back pain TIA (transient ischemic attack) Syncope Difficulty swallowing Gastric reflux Former smoker Shortness of breath on exertion Leg cramps History of edema History of echocardiogram History of stress test Cardiology follow-up encounter History of heart attack History of irregular heartbeat Melena Anticoagulant long-term use Blood in stool Morbid obesity with BMI of 40.0-44.9, adult Uncontrolled type 2 diabetes mellitus COPD exacerbation Anemia Dyspnea on exertion Normocytic anemia HFrEF (heart failure with reduced ejection fraction) Peripheral vascular occlusive disease Dermatitis of lower extremity Ulcer of right lower extremity Essential (primary) hypertension Cellulitis Ulcer of left lower extremity with fat layer exposed 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 Corns and callosities Xerosis cutis Other specified peripheral vascular diseases Other hereditary and idiopathic neuropathies Cellulitis of right leg Ulcer of right lower extremity with fat layer exposed Walking difficulty due to ankle and foot Nondisp fracture of fifth left metatarsal bone with routine healing Localized edema Ulcer of right lower extremity with fat layer exposed Diabetes mellitus type 2 in obese Paroxysmal atrial flutter History of deep vein thrombosis (DVT) of lower extremity Nonsustained ventricular tachycardia Hyperlipidemia History of non-ST elevation myocardial infarction (NSTEMI) (11/05/16) Atherosclerotic heart disease of [place] coronary artery with other forms of angina pectoris Nonrheumatic tricuspid (valve) insufficiency Ischemic cardiomyopathy Home Medications ?Medication ?Instructions ?Recorded ?Last Taken ?Type dapagliflozin propanediol 10 mg 10 mg PO DAILY diabetes 04/18/22 09/23/23 History tablet (Farxiga) nitroglycerin 0.4 mg sublingual 0.4 mg sublingual Q5M PRN Chest 04/21/22 Unknown Rx tablet Pain #25 tabs gabapentin 300 mg capsule 900 mg PO Q8H 02/09/23 01/13/24 History latanoprost 0.005 % eye drops 1 drp EACH EYE TID glaucoma 10/07/23 01/12/24 History ondansetron 4 mg disintegrating 4 mg PO Q6H PRN nausea and vomiting 10/07/23 Unknown History tablet ferrous sulfate 325 mg (65 mg 325 mg PO QDAY Fe def anemia #90 02/15/24 Unknown Rx iron) tablet tabs warfarin 6 mg tablet 6 mg PO SUTH 02/15/24 Unknown History warfarin 7.5 mg tablet 7.5 mg PO MOTUWEFRSA 02/15/24 Unknown History ropinirole 0.5 mg tablet 1 mg (2 x 0.5 mg) PO QHS legs #90 03/03/24 Unknown Rx tabs oxybutynin chloride 10 mg 10 mg PO QDAY 03/11/24 Unknown History tablet,extended release 24 hr tamsulosin 0.4 mg capsule 0.4 mg PO QDAY 03/11/24 Unknown History dulaglutide 3 mg/0.5 mL 4.5 mg subcut [place] diabetes 06/09/24 Unknown History subcutaneous pen injector (Trulicity) nortriptyline 25 mg capsule 25 mg PO QHS 06/09/24 Unknown History metoprolol tartrate 50 mg tablet 50 mg PO BID #60 tabs 06/10/24 Unknown Rx rosuvastatin 40 mg tablet 40 mg PO QHS Cholesterol #90 tabs 06/17/24 Unknown Rx amlodipine 5 mg tablet 5 mg PO QDAY #90 tabs 08/29/24 Unknown Rx pantoprazole 40 mg tablet,delayed 40 mg PO DAILY #30 TABLETS 08/29/24 Unknown Rx release insulin lispro 100 unit/mL 25 unit subcut TID blood sugar 09/28/24 Unknown History subcutaneous pen (Humalog KwikPen (U-100) Insulin) isosorbide mononitrate 60 mg 60 mg PO BID #180 tabs 10/04/24 Unknown Rx tablet,extended release 24 hr albuterol sulfate 90 mcg/actuation 2 inh inhalation Q6H PRN shortness 10/09/24 Unknown History breath activated powder of breath inhaler,sensor insulin glargine-yfgn 100 unit/mL 40 unit subcut BID diabetes 10/09/24 Unknown History (3 mL) subcutaneous pen clopidogrel 75 mg tablet 75 mg PO DAILY #30 tabs 10/10/24 Unknown Rx furosemide 20 mg tablet 40 mg (2 x 20 mg) PO DAILY #1 TAB 10/10/24 Unknown Rx potassium chloride 20 mEq 20 meq PO BID #1 TAB 10/10/24 01/12/24 Rx tablet,extended release(part/cryst) (Klor-Con M) ranolazine 500 mg tablet,extended 500 mg PO BID #60 tabs 10/10/24 Unknown Rx release,12 hr tramadol 50 mg tablet 50 mg PO Q6H PRN pain #40 tabs 10/10/24 Unknown Rx Allergy/AdvReac Type Severity Reaction Status Date / Time ceftriaxone sodium (From Allergy Rash Verified 10/09/24 03:25 Rocephin) milk AdvReac Diarrhea Verified 10/09/24 03:25 morphine AdvReac hallucinati Verified 10/09/24 03:25 ons Family History Father , Age 78 Prostate cancer Mother , Age 80 CVA (cerebral vascular accident) Sister Congestive heart failure Diabetes Hypertension Hyperlipidemia Atrial fibrillation CAD (coronary artery disease) Cardiac defibrillator in situ Sister Breast cancer Sister Breast cancer Brother CAD (coronary artery disease) Myocardial infarction Diabetes Brother Diabetes Brother , Age 74 COPD (chronic obstructive pulmonary disease) Sister Alive and well Surgical History (Updated 10/14/24 @ 18:[address] Seema Vazquez MD) H/O percutaneous transluminal coronary angioplasty (10/09/24) History of colonoscopy History of esophagogastroduodenoscopy (EGD) History of implantable cardiac defibrillator (ICD) History of cardiac catheterization History of angioplasty of peripheral vessel History of implantable cardiac defibrillator (ICD) (11/19/17) History of radiofrequency ablation procedure for cardiac arrhythmia (07/01/11) History of electrophysiologic study (11/23/02) History of left heart catheterization (12/06/18) History of coronary artery stent placement (12/15/14) H/O colonoscopy with polypectomy (11/2017) History of detached retina repair ICD (implantable cardioverter-defibrillator) in place Social History household members: spouse housing: house current occupational status: retired pets and animals: Yes (2 dogs, 2 cats) Smoking Status: Former smoker pack-years: 20 how long ago did patient quit smokin years ago alcohol intake: never caffeine: Yes Type: coffee Number of servings: 1 Physical Exam Narrative Mildly anxious. Heart sounds 1 and 2 noted. No murmurs or rubs are noted. Chest is clear to auscultation bilaterally. Alert oriented x 3. 1+ lower extremity edema. Chronic eczematous changes of both legs. Risk Stratification Risk Stratification Applicable: No Objective Data Vital Signs: Vital Signs Temp Pulse Resp BP Pulse Ox O2 Del Method O2 Flow Rate 97.5 F L 93 33 H 122/82 H 94 Nasal Cannula 2 10/14/24 18:10 10/14/24 18:39 10/14/24 18:36 10/14/24 18:39 10/14/24 18:36 10/14/24 18:36 10/14/24 18:36 Oxygen Flow Rate (L/min) 2 Oxygen Delivery Method Nasal Cannula Weight: 251 lb 8.759 oz Body Mass Index (BMI) 38.2 Intake & Output: Intake and Output for Last 24 Hours 10/12/24 10/13/24 10/14/24 23:59 23:59 23:59 Intake Total 0 / 0 Balance 0 / 0 Lab / Micro Data Attestation: I reviewed the patient's lab results. 10/14/24 18:19 10/14/24 18:19 Labs: Laboratory Results - last 24 hr 10/14/24 18:19: WBC 10.8, RBC 6.31 H, Hgb 16.5, Hct 49.9, MCV 79.1 L, MCH 26.1 L, MCHC 33.1, RDW Std Deviation 45.7 H, RDW Coeff of Galo 17.5 H, Plt Count 174, MPV 9.5, Immature Gran % (Auto) 0.600, Neut % (Auto) 82.5 H, Lymph % (Auto) 9.1 L, Hunt % (Auto) 6.5, Eos % (Auto) 0.7, Baso % (Auto) 0.6, Absolute Neuts (auto) 8.9 H, Absolute Lymphs (auto) 0.98, Nucleated RBC % 0, PT 19.7 H, INR 1.6, APTT 28.4 Rhythm Strip Rhythm Strip: Sinus Rhythm Rate: 89 Ectopy: PVC(s) Cardiology Labs/Tests 10/14/24 18:19: WBC 10.8, RBC 6.31 H, Hgb 16.5, Hct 49.9, MCV 79.1 L, MCH 26.1 L, MCHC 33.1, Plt Count 174, MPV 9.5, Immature Gran % (Auto) 0.600, Neut % (Auto) 82.5 H, Lymph % (Auto) 9.1 L, Hunt % (Auto) 6.5, Eos % (Auto) 0.7, Baso % (Auto) 0.6, Absolute Neuts (auto) 8.9 H, Nucleated RBC % 0, PT 19.7 H, INR 1.6, APTT 28.4 Rhythm: EKG: Sinus rhythm. Right bundle branch block. Q waves in inferior leads suggestive of old inferior RI. ECHO: Stress Test: Cardiac Cath: PCI: CT Surgery: Holter monitor: EPS: PPM: CXR: Chest CT Scan:
[2024-10-14 18:56] LABS: Anion Gap 14 (5-15); BUN 17 mg/dL (4-19); BUN/Creat Ratio 13.5 RATIO (10-20); Calcium,Total 9.1 mg/dL (7.6-11.0); Carbon Dioxide 24.3 mmol/L (21.0-32.0); Chloride 102 mmol/L (98-108); Estimated Creatinine Clearance 58.77 ml/min (50-250); Glucose 84 mg/dL (70-99); Potassium 3.5 mmol/L (3.3-5.1)
[2024-10-14 18:59] LABS: Troponin T High Sensitivity 69 ng/L (<=22)
--- NOTE | 2024-10-14 19:13 | ED.RN ---
ALL OF PATIENT BELONGINGS SENT WITH DAUGHTER, MARCOS.
[2024-10-14] MEDS: 0.9% Normal Saline (1000mL) 1,000 ML 100 ML IV (19:30)
[2024-10-14 19:49] LABS: D-Dimer Quantitative (DVT/PE) 0.27 FEU/ug/m (0.27-0.49)
[2024-10-14 20:45] LABS: Troponin T High Sens 2 HR 93 ng/L (<=22)
--- NOTE | 2024-10-14 23:10 | ED.RN ---
update called to mary rascon per pt request.
[2024-10-14] MEDS: Nitroglycerin Infusion 250 ML 66 MG CONT INF (23:28)
[2024-10-15 00:01] VITALS: BP 105/70; PULSE 83; RESP 16; TEMP 36.6; O2SAT 98
== END 2024-10-15 00:05 | disposition short-term general hospital (02) ==
PROVIDERS: Emergency Provider Emergency Medicine; PCP Family Medicine; Visit Provider Emergency Medicine
DX: I21.4 Non-ST elevation (NSTEMI) myocardial infarction (principal); I50.84 End stage heart failure; I11.0 Hypertensive heart disease with heart failure; J44.9 Chronic obstructive pulmonary disease, unspecified; Z79.4 Long term (current) use of insulin; E11.9 Type 2 diabetes mellitus without complications; R07.9 Chest pain, unspecified; K21.9 Gastro-esophageal reflux disease without esophagitis; Z79.899 Other long term (current) drug therapy; Z79.02 Long term (current) use of antithrombotics/antiplatelets; Z79.891 Long term (current) use of opiate analgesic; Z95.5 Presence of coronary angioplasty implant and graft; Z79.84 Long term (current) use of oral hypoglycemic drugs; I25.2 Old myocardial infarction; Z79.85 Long-term (current) use of injectable non-insulin antidiabetic drugs; E78.00 Pure hypercholesterolemia, unspecified; Z79.01 Long term (current) use of anticoagulants; Z87.891 Personal history of nicotine dependence; I25.10 Atherosclerotic heart disease of native coronary artery without angina pectoris; Z86.73 Personal history of transient ischemic attack (TIA), and cerebral infarction without residual deficits; G25.81 Restless legs syndrome; Z95.810 Presence of automatic (implantable) cardiac defibrillator
CPT/HCPCS: 80048; 84484; 85025; 85379; 85610; 85730; 93005; 96361; 96365; 96366; 96368; 96375; 99285; A4216; J2405

== ENCOUNTER → 2024-12-13 | Outpatient (CLI) | payer MEDICARE, OTHER, SELFPAY ==
[2017-11-06 10:25] VITALS: BMI 37.2
[2024-12-13 17:58] LABS: Color, Urine Yellow (Yellow); Glucose, Dipstick 1000 mg/dl (Normal); Ketone-Dipstick Negative (Negative); Leukocyte Esterase-Dipstick 100 /ul (Negative); Nitrite-Dipstick Positive (Negative); Occult Blood-Urine 250 /ul (Negative); Protein-Dipstick 30 mg/dl (Negative); Specific Gravity, Urine 1.010 (1.002-1.030); Urine Bilirubin Dipstick Negative (Negative)
== END | disposition home or self-care (01) ==
LOC: LABSPEC 15:30
PROVIDERS: PCP Family Medicine; Visit Provider Family Medicine
DX: I13.0 Hypertensive heart and chronic kidney disease with heart failure and stage 1 through stage 4 chronic kidney disease, or unspecified chronic kidney disease (principal); I50.9 Heart failure, unspecified; N18.9 Chronic kidney disease, unspecified
CPT/HCPCS: 81002; 87077; 87086; 87088; 87186

== ENCOUNTER → 2024-12-21 | Outpatient (CLI) | payer MEDICARE, OTHER, SELFPAY ==
[2017-11-06 10:25] VITALS: BMI 37.2
[2024-12-21 14:55] LABS: Hematocrit 45.7 % (40-54); Hemoglobin 14.6 g/dL (13.0-16.5); Immature Granulocytes Count 0.030 X10^3/uL (0.0-0.0); Mean Corp Hgb Conc 31.9 g/dL (32-36); Mean Corpuscular Volume 83.5 fL (80-94); Mean Platelet Vol. 10.0 fl (6.2-12.0); NRBC Flagged by Analyzer 0 % (0-5); Platelet Count 164 K/mm3 (150-450); RBC Distribution Width CV 16.8 % (11.6-14.6); RBC Distribution Width SD 50.6 fl (35.1-43.9); Red Blood Count 5.47 M/mm3 (4.6-6.2); White Blood Count 6.4 K/mm3 (4.4-11.0)
[2024-12-21 15:22] LABS: Iron Binding Capacity,Total 367 ug/dL (250-450)
[2024-12-21 15:23] LABS: Pro- Brain NATRIURETIC PEPTIDE 1259 pg/mL (<=1800)
[2024-12-21 15:39] LABS: Anion Gap 11 (5-15); BUN 17 mg/dL (4-19); BUN/Creat Ratio 17.9 RATIO (10-20); Calcium,Total 8.7 mg/dL (7.6-11.0); Carbon Dioxide 24.0 mmol/L (21.0-32.0); Chloride 103 mmol/L (98-108); Glucose 198 mg/dL (70-99); Iron 36 ug/dL (65-175); Iron Binding Capacity,Unsat 331 ug/dL (228-428); Potassium 3.9 mmol/L (3.3-5.1)
== END | disposition home or self-care (01) ==
LOC: LAB 14:18
PROVIDERS: Nurse Practitioner Acute Care; PCP Family Medicine; Referring Provider Internal Medicine Cardiovascular Disease; Visit Provider Internal Medicine Cardiovascular Disease
DX: R06.00 Dyspnea, unspecified (principal); D50.0 Iron deficiency anemia secondary to blood loss (chronic); Z86.79 Personal history of other diseases of the circulatory system
CPT/HCPCS: 36415; 80048; 83540; 83550; 83880; 85025

== ENCOUNTER → 2024-12-22 | Outpatient (CLI) | payer MEDICARE, OTHER, SELFPAY ==
[2017-11-06 10:25] VITALS: BMI 37.2
--- NOTE | 2024-12-22 10:23 | RAD_ITS ---
PROCEDURE: CHEST PA AND LATERAL 12/22/2024 REASON FOR EXAM: FOURNIER TECHNIQUE: Procedure Code: RADCXR Modality: DX Procedure: CHEST PA AND LATERAL COMPARISON: AP chest of 10/09/2024. RAD/Chest PA and Lateral IMPRESSION: Left thoracic pacemaker/AICD device with lead appears unchanged. Moderate right hemidiaphragm eventration/elevation again noted. Lungs appear clear of acute disease, and unchanged. No pleural effusion or pneumothorax is noted. The cardiomediastinal silhouette is stable; borderline cardiomegaly is noted. Mild thoracic spine degenerative changes are seen, along with extensive DISH. Reading Location: [id number]
--- NOTE | 2024-12-22 10:23 | RAD_ITS ---
PROCEDURE: CHEST PA AND LATERAL 12/22/2024 REASON FOR EXAM: FOURNIER TECHNIQUE: Procedure Code: RADCXR Modality: DX Procedure: CHEST PA AND LATERAL COMPARISON: AP chest of 10/09/2024. RAD/Chest PA and Lateral IMPRESSION: Left thoracic pacemaker/AICD device with lead appears unchanged. Moderate right hemidiaphragm eventration/elevation again noted. Lungs appear clear of acute disease, and unchanged. No pleural effusion or pneumothorax is noted. The cardiomediastinal silhouette is stable; borderline cardiomegaly is noted. Mild thoracic spine degenerative changes are seen, along with extensive DISH. Reading Location: [id number]
== END | disposition home or self-care (01) ==
LOC: RAD 10:20
PROVIDERS: PCP Family Medicine; Referring Provider Physician Assistant Medical; Visit Provider Physician Assistant Medical
DX: R06.00 Dyspnea, unspecified (principal)
CPT/HCPCS: 71046

== ENCOUNTER 2025-03-21 08:31 | Emergency (ER) | payer MEDICARE, OTHER, SELFPAY ==
[2017-11-06 10:25] VITALS: BMI 37.2
[2025-03-21 08:33] VITALS: BP 122/84; PULSE 70; RESP 20; TEMP 36.6; O2SAT 98; BMI 38.2
--- NOTE | 2025-03-21 09:01 | EKG12_ITS ---
Test Reason : CP Blood Pressure : */* mmHG Vent. Rate : 57 BPM Atrial Rate : 77 BPM P-R Int : * ms QRS Dur : 158 ms QT Int : 448 ms P-R-T Axes : 53 -8 61 degrees QTcB Int : 436 ms Critical Test Result: AV Block Sinus rhythm with 2nd degree A-V block (Mobitz I) Right bundle branch block Lateral infarct Inferior infarct Abnormal ECG Confirmed by Waqar Bruce ([id number]), rewrite editor JEREMIAS MARKS ([id number]) on 03/24/2025 8:17:34 AM Referred By: DELISA/GLENDA Confirmed By: Waqar Bruce
--- NOTE | 2025-03-21 09:07 | RAD_ITS ---
PROCEDURE: CHEST 1 VIEW (PORTABLE) 03/21/2025 REASON FOR EXAM: CHEST PAIN since 6 a.m. TECHNIQUE: Frontal view of the chest. COMPARISON: 12/22/2024 FINDINGS: LINES: Left-sided pacemaker device with right ventricular lead. LUNGS AND PLEURA: The lungs are clear. No pleural effusion or pneumothorax. HEART AND MEDIASTINUM: The cardiac silhouette is mildly enlarged. The mediastinal contour is normal. AORTA: Calcified aortic arch. BONES: No acute osseous abnormality. OTHER: Moderate persistent right hemidiaphragm elevation. RAD/Chest 1 View (Portable) IMPRESSION: No Acute Findings. Reading Location: [id number]
[2025-03-21 09:09] LABS: Hematocrit 46.2 % (40-54); Hemoglobin 14.8 g/dL (13.0-16.5); Immature Granulocytes Count 0.040 X10^3/uL (0.0-0.0); Mean Corp Hgb Conc 32.0 g/dL (32-36); Mean Corpuscular Volume 84.9 fL (80-94); Mean Platelet Vol. 9.6 fl (6.2-12.0); NRBC Flagged by Analyzer 0 % (0-5); Platelet Count 128 K/mm3 (150-450); RBC Distribution Width CV 17.1 % (11.6-14.6); RBC Distribution Width SD 53.1 fl (35.1-43.9); Red Blood Count 5.44 M/mm3 (4.6-6.2); White Blood Count 5.7 K/mm3 (4.4-11.0)
[2025-03-21 09:32] VITALS: BP 123/78; PULSE 62; RESP 17; O2SAT 98
[2025-03-21 09:41] LABS: Anion Gap 9 (7-18); BUN 17 mg/dL (4-19); BUN/Creat Ratio 15.3 RATIO (10-20); Calcium,Total 8.7 mg/dL (7.6-11.0); Carbon Dioxide 29.8 mmol/L (20.0-29.0); Chloride 101 mmol/L (96-106); Estimated Creatinine Clearance 67.97 ml/min (50-250); Glucose 200 mg/dL (70-99); Potassium 4.0 mmol/L (3.5-5.1); Troponin T High Sensitivity 62 ng/L (<=22)
[2025-03-21 10:00] VITALS: BP 128/93; PULSE 58; RESP 16; O2SAT 98
--- NOTE | 2025-03-21 10:33 | ED.VIS.CHEST ---
HPI History of Present Illness Chief Complaint: Chest Pain Informant: patient and EMS Narrative Narrative: 79-year-old male presenting to the emergency room with a chief complaint of chest pain. Patient states that he went to see primary care today for scheduled examination. He mentioned that he has had a chest achiness since waking this morning. Not relieved with nitroglycerin. Patient was recently admitted to this hospital in the summertime then transferred to [facility] And then to [facility] where he underwent angioplasty and stent placement. He has an ICD. He follows locally with [place] cardiology Dr. Mora. He has a history of warfarin use due to atrial flutter. He has not had any syncope or near syncope or lightheadedness. He denies sweating or shortness of breath. [facility] Medical History Dyspnea on exertion NSTEMI, initial episode of care PVC (premature ventricular contraction) Personal history of colonic polyps Syncope and collapse Iron deficiency anemia due to chronic blood loss History of DVT (deep vein thrombosis) History of pacemaker History of CHF (congestive heart failure) Gastritis GI bleed Chest pain Wears dentures Wears glasses Insulin dependent diabetes mellitus Walker as ambulation aid Arthritis History of renal disease High cholesterol Restless legs Back pain TIA (transient ischemic attack) Syncope Difficulty swallowing Gastric reflux Former smoker Shortness of breath on exertion Leg cramps History of edema History of echocardiogram History of stress test Cardiology follow-up encounter History of heart attack History of irregular heartbeat Melena Anticoagulant long-term use Blood in stool Morbid obesity with BMI of 40.0-44.9, adult Uncontrolled type 2 diabetes mellitus COPD exacerbation Anemia Normocytic anemia HFrEF (heart failure with reduced ejection fraction) Peripheral vascular occlusive disease Dermatitis of lower extremity Ulcer of right lower extremity Essential (primary) hypertension Cellulitis Ulcer of left lower extremity with fat layer exposed 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 Corns and callosities Xerosis cutis Other specified peripheral vascular diseases Other hereditary and idiopathic neuropathies Cellulitis of right leg Ulcer of right lower extremity with fat layer exposed Walking difficulty due to ankle and foot Nondisp fracture of fifth left metatarsal bone with routine healing Localized edema Ulcer of right lower extremity with fat layer exposed Diabetes mellitus type 2 in obese Paroxysmal atrial flutter History of deep vein thrombosis (DVT) of lower extremity Nonsustained ventricular tachycardia Hyperlipidemia History of non-ST elevation myocardial infarction (NSTEMI) (11/05/16) Atherosclerotic heart disease of [place] coronary artery with other forms of angina pectoris Nonrheumatic tricuspid (valve) insufficiency Ischemic cardiomyopathy Home Medications ?Medication ?Instructions ?Recorded ?Last Taken ?Type dapagliflozin propanediol 10 mg 10 mg PO DAILY diabetes 04/18/22 09/23/23 History tablet (Farxiga) nitroglycerin 0.4 mg sublingual 0.4 mg sublingual Q5M PRN Chest 04/21/22 Unknown Rx tablet Pain #25 tabs ferrous sulfate 325 mg (65 mg 325 mg PO QDAY Fe def anemia #90 02/15/24 Unknown Rx iron) tablet tabs warfarin 6 mg tablet 6 mg PO SUTH 02/15/24 Unknown History warfarin 7.5 mg tablet 7.5 mg PO MOTUWEFRSA 02/15/24 Unknown History ropinirole 0.5 mg tablet 1 mg (2 x 0.5 mg) PO QHS legs #90 03/03/24 Unknown Rx tabs oxybutynin chloride 10 mg 10 mg PO QDAY 03/11/24 Unknown History tablet,extended release 24 hr tamsulosin 0.4 mg capsule 0.4 mg PO QDAY 03/11/24 Unknown History dulaglutide 3 mg/0.5 mL 4.5 mg subcut [place] diabetes 06/09/24 Unknown History subcutaneous pen injector (Trulicity) nortriptyline 25 mg capsule 25 mg PO QHS 06/09/24 Unknown History rosuvastatin 40 mg tablet 40 mg PO QHS Cholesterol #90 tabs 06/17/24 Unknown Rx albuterol sulfate 90 mcg/actuation 2 inh inhalation Q6H PRN shortness 10/09/24 Unknown History breath activated powder of breath inhaler,sensor clopidogrel 75 mg tablet 75 mg PO DAILY #30 tabs 10/10/24 Unknown Rx dorzolamide 2 % eye drops 1 drp ophthalmic (eye) TID 12/07/24 Unknown History furosemide 40 mg tablet (Lasix) 40 mg PO BID 12/07/24 Unknown History gabapentin 300 mg capsule 300 mg PO TID 12/07/24 Unknown History insulin glargine-yfgn 100 unit/mL 48 unit subcut BID diabetes 12/07/24 Unknown History (3 mL) subcutaneous pen insulin lispro 100 unit/mL 12 unit subcut TID blood sugar 12/07/24 Unknown History subcutaneous pen (Humalog KwikPen (U-100) Insulin) metoprolol tartrate 25 mg tablet 12.5 mg PO BID 12/07/24 Unknown History valsartan 80 mg tablet 80 mg PO BID 12/07/24 Unknown History ranolazine 1,000 mg 1,000 mg PO BID #180 tabs 12/15/24 Unknown Rx tablet,extended release,12 hr pantoprazole 40 mg tablet,delayed 40 mg PO DAILY #30 TABLETS 03/15/25 Unknown Rx release Allergy/AdvReac Type Severity Reaction Status Date / Time ceftriaxone sodium (From Allergy Rash Verified 03/21/25 08:37 Rocephin) milk AdvReac Diarrhea Verified 03/21/25 08:37 morphine AdvReac hallucinati Verified 03/21/25 08:37 ons Family History Father , Age 78 Prostate cancer Mother , Age 80 CVA (cerebral vascular accident) Sister Congestive heart failure Diabetes Hypertension Hyperlipidemia Atrial fibrillation CAD (coronary artery disease) Cardiac defibrillator in situ Sister Breast cancer Sister Breast cancer Brother CAD (coronary artery disease) Myocardial infarction Diabetes Brother Diabetes Brother , Age 74 COPD (chronic obstructive pulmonary disease) Sister Alive and well Surgical History History of right heart catheterization H/O percutaneous transluminal coronary angioplasty (10/09/24) History of colonoscopy History of esophagogastroduodenoscopy (EGD) History of implantable cardiac defibrillator (ICD) History of cardiac catheterization History of angioplasty of peripheral vessel History of implantable cardiac defibrillator (ICD) (11/19/17) History of radiofrequency ablation procedure for cardiac arrhythmia (07/01/11) History of electrophysiologic study (11/23/02) History of left heart catheterization (12/06/18) History of coronary artery stent placement (12/15/14) H/O colonoscopy with polypectomy (11/2017) History of detached retina repair ICD (implantable cardioverter-defibrillator) in place Social History household members: spouse housing: house current occupational status: retired pets and animals: Yes (2 dogs, 2 cats) Smoking Status: Former smoker pack-years: 20 how long ago did patient quit smokin years ago alcohol intake: never caffeine: Yes Type: coffee Number of servings: 1 ROS ROS ED Constitutional Constitutional ED: Denies chills, fever(s) or weight loss Eyes Eyes: Denies change in vision or diplopia ENT ENT ED: Denies ear pain, rhinorrhea or sore throat Cardiovascular Cardiovascular: Reports as per HPI and chest pain; Denies orthopnea, palpitations or racing heartbeat Respiratory/Chest Respiratory/Chest: Denies cough, dyspnea or orthopnea Gastrointestinal Gastrointestinal: Denies abdominal pain, diarrhea, nausea or vomiting Genitourinary Genitourinary ED: Denies dysuria, hematuria or urinary frequency Musculoskeletal Musculoskeletal: Denies arthralgias or myalgias Integumentary Denies abscess or rash Neurologic Neurologic: Denies headache(s) or weakness Psychiatric Psychiatric: Denies anxiety, depression, suicidal ideation or suicidal thoughts Endocrine Endocrinology: Denies polydipsia, polyphagia or polyuria Allergic/Immunologic Allergic/Immunologic ED: Denies mouth swelling, tongue swelling or urticaria EXAM Physical Exam Const Vital Signs: 03/21/25 08:33 03/21/25 09:32 03/21/25 10:00 Temperature 97.8 F Temperature Source Oral Pulse Rate 70 62 58 L Respiratory Rate 20 H 17 16 Blood Pressure 122/84 H 123/78 H 128/93 H Blood Pressure Mean 96 93 104 Pulse Ox 98 98 98 Oxygen Delivery Method Room Air Room Air Room Air 03/21/25 11:00 03/21/25 11:57 03/21/25 11:58 Temperature 97.9 F Temperature Source Pulse Rate 58 L 54 L 65 Respiratory Rate 18 17 17 Blood Pressure 123/80 H 125/76 H 125/76 H Blood Pressure Mean 94 92 92 Pulse Ox 100 98 99 Oxygen Delivery Method Room Air Room Air Positive well nourished and well developed General Appearance ED: well developed and NAD HEENT Reports normocephalic, head/scalp atraumatic and moist mucous membranes Eyes PERRL and EOMs intact bilaterally Neck no lymphadenopathy, supple and no JVD Resp normal respiratory effort and clear to auscultation bilaterally Cardio regular rate, regular rhythm and no murmurs GI normal to inspection, nondistended, normoactive bowel sounds and non-tender Palpation: soft Back/Spine no CVA tenderness and normal ROM Extremity General Extremety ED: Yes edema General Extremity: edema bilateral lower extremity Details: moderate Neuro oriented x3 and CN's II-XII intact bilaterally Sensorium / Orientation: alert Motor Exam: strength 5/5 throughout Psych mental status grossly normal Mood & Affect: Negative for depressed or tearful Skin no rashes or lesions noted and no wounds Heart Score History: Moderately Suspicious ECG: Normal Age: >/= 65 years Risk Factors: >/= 3 Risk Factors or History of CAD Troponin: >1 - <3 Normal Limit Score: 6 MDM MDM MDM Narrative Medical decision making narrative: Differential diagnosis includes but not limited to acute coronary syndrome anemia GERD esophageal spasm pneumonia pleural effusion congestive heart failure cardiac dysrhythmia Patient's EKG shows a sinus rhythm with second-degree AV block Mobitz 1 with underlying right bundle branch block. On the monitor this has been inconsistent but right bundle branch block has been constant. His cardiac enzymes are 62 and 59. His INR is subtherapeutic at 1.8 and he was advised to take double of his Coumadin dose tonight. He will need to have this rechecked later this week. Hemoglobin 14.8 white count 5.7 platelet count 128. Creatinine 1.08 with a BUN of 17. My independent interpretation of the chest x-ray is no acute process I spoke with on-call straight slicing machine operator. They are comfortable with the patient going home. We did interrogate his ICD and he had some nonsustained V. tach last episode March 16 and prior to that February 26. There have been no recent defibrillations. Last was apparently September 15. Patient will follow-up with cardiology return if worsening or concerns History & Record Review Discussion w/independent historian: Patient Additional record(s) reviewed:: Prior outpatient record, Prior ED visit and Prior labs Lab Data Attestation: I reviewed the patient's lab results. Labs: Laboratory Results - last 24 hr 03/21/25 03/21/25 03/21/25 08:55 10:20 10:54 WBC 5.7 RBC 5.44 Hgb 14.8 Hct 46.2 MCV 84.9 MCH 27.2 MCHC 32.0 RDW Std Deviation 53.1 H RDW Coeff of Galo 17.1 H Plt Count 128 L MPV 9.6 Immature Gran % (Auto) 0.700 Neut % (Auto) 69.0 Lymph % (Auto) 17.0 L Beaver % (Auto) 8.6 Eos % (Auto) 4.0 Baso % (Auto) 0.7 Absolute Neuts (auto) 3.9 Absolute Lymphs (auto) 0.97 Nucleated RBC % 0 PT 21.4 H INR 1.8 Sodium 139 Potassium 4.0 Chloride 101 Carbon Dioxide 29.8 H Anion Gap 9 BUN 17 Creatinine 1.08 Estim Creat Clear Calc 67.97 Est GFR (MDRD) Non-Af 70 BUN/Creatinine Ratio 15.3 Glucose 200 H Calcium 8.7 Troponin T High Sens 62 H* D Troponin T Hi Sens 2 Hr 59 H* Radiography Diagnostic Testing: Clinical Impression(s) from Imaging Studies Chest X-Ray 03/21/25 09:07 IMPRESSION: No Acute Findings. Reading Location: [facility] EKG Initial EKG: Attestation: I personally reviewed and interpreted this EKG as follows: Comments: Sinus rhythm with second-degree AV block (Mobitz 1) right bundle branch block ventricular rate of 57 bpm Management Discussion w/another healthcare provider: Investor Relations Associate (Dr. Bruce (cardiology)) Discharge Plan Triage Chief Complaint: Chest Pain ED Provider: Ramiro Galvan Dx/Rx/DC Orders Clinical Impression: Chest pain, CAD (coronary artery disease), Mobitz type I incomplete atrioventricular block Instructions: CAD Prescriptions: No Action dapagliflozin propanediol [Farxiga] 10 mg tablet 10 mg PO DAILY insulin lispro [Humalog KwikPen Insulin] 100 unit/mL insulin pen 12 unit subcut TID nortriptyline 25 mg capsule 25 mg PO QHS ferrous sulfate 325 mg (65 mg iron) tablet 325 mg PO QDAY Qty: 90 1RF oxybutynin chloride 10 mg tablet extended release 24hr 10 mg PO QDAY tamsulosin 0.4 mg capsule 0.4 mg PO QDAY valsartan 80 mg tablet 80 mg PO BID furosemide [Lasix] 40 mg tablet 40 mg PO BID dorzolamide 2 % drops 1 drp ophthalmic (eye) TID metoprolol tartrate 25 mg tablet 12.5 mg PO BID Trulicity 3 mg/0.5 mL pen injector 4.5 mg SUBCUT [place] gabapentin 300 mg capsule 300 mg PO TID warfarin 6 mg tablet 6 mg PO SUTH warfarin 7.5 mg tablet 7.5 mg PO MOTUWEFRSA albuterol sulfate 90 mcg/actuation aero powdr breath act w/sensor 2 inh inhalation Q6H PRN (Reason: shortness of breath) insulin glargine-yfgn 100 unit/mL (3 mL) insulin pen 48 unit subcut BID nitroglycerin 0.4 mg tablet, sublingual 0.4 mg SL Q5M PRN (Reason: Chest Pain) Qty: 25 3RF ropinirole 0.5 mg tablet 1 mg PO QHS Qty: 90 3RF rosuvastatin 40 mg tablet 40 mg PO QHS Qty: 90 3RF clopidogrel 75 mg tablet 75 mg PO DAILY Qty: 30 0RF ranolazine 1,000 mg tablet extended release 12 hr 1,000 mg PO BID Qty: 180 3RF pantoprazole 40 mg tablet,delayed release (DR/EC) 40 mg PO DAILY Qty: 30 2RF Primary Care Provider: Brandon Romo Referrals: Brandon Romo MD [Primary Care Provider, Family Practice] Federico Mora MD [Med Staff - Active Staff, Cardiology] - 1-2 Weeks Print Language: Scottish Disposition Disposition: Home, Self Care Discharge Date/Time: 03/21/25 12:03
[2025-03-21 10:37] LABS: Prothrombin Time (Protime)PT. 21.4 SECONDS (11.7-14.9)
[2025-03-21 11:00] VITALS: BP 123/80; PULSE 58; RESP 18; O2SAT 100
[2025-03-21 11:22] LABS: Troponin T High Sens 2 HR 59 ng/L (<=22)
[2025-03-21 11:57] VITALS: BP 125/76; PULSE 54; RESP 17; O2SAT 98
[2025-03-21 11:58] VITALS: BP 125/76; PULSE 65; RESP 17; TEMP 36.6; O2SAT 99
== END 2025-03-21 12:03 | disposition home or self-care (01) ==
PROVIDERS: Emergency Provider Emergency Medicine; PCP Family Medicine; Visit Provider Emergency Medicine
DX: R07.9 Chest pain, unspecified (principal); I11.0 Hypertensive heart disease with heart failure; I50.20 Unspecified systolic (congestive) heart failure; J44.9 Chronic obstructive pulmonary disease, unspecified; I48.92 Unspecified atrial flutter; Z79.4 Long term (current) use of insulin; E11.9 Type 2 diabetes mellitus without complications; I25.10 Atherosclerotic heart disease of native coronary artery without angina pectoris; I44.1 Atrioventricular block, second degree; Z86.718 Personal history of other venous thrombosis and embolism; E78.00 Pure hypercholesterolemia, unspecified; Z87.891 Personal history of nicotine dependence; Z95.5 Presence of coronary angioplasty implant and graft; Z79.01 Long term (current) use of anticoagulants; I25.2 Old myocardial infarction; Z95.0 Presence of cardiac pacemaker; Z86.73 Personal history of transient ischemic attack (TIA), and cerebral infarction without residual deficits; Z79.85 Long-term (current) use of injectable non-insulin antidiabetic drugs; G25.81 Restless legs syndrome; K21.9 Gastro-esophageal reflux disease without esophagitis
CPT/HCPCS: 71045; 80048; 84484; 85025; 85610; 93005; 99285; A4216